=== PATIENT | male | born 1940 | race Caucasian/White ===

== ENCOUNTER 2023-02-19 09:53 | Outpatient (OUT) | payer MEDICARE, OTHER, SELFPAY ==
--- NOTE | 2023-02-19 09:57 | US_ITS ---
[address] [address] Patient Name: CHICO BAKER MRN: [id number] date: 1940 Sex: M Assigned Patient Location: US Current Patient Location: US Accession/Order Number: [id number] Exam Date: 02/19/2023 10:12 Report Date: 02/19/2023 12:06 At the request of: SHERMAN AGUILAR Procedure: US renal BI EXAMINATION: US renal BI HISTORY: Kidney Stone COMPARISON: No relevant comparison available. TECHNIQUE: Ultrasound examination was performed of the bladder. FINDINGS: Right Kidney: Normal in size, contour and cortical echotexture. The cortex measures 1.6 cm thick. Multiple echogenic foci measuring up to 8 mm. No hydronephrosis or solid cortical mass Height: 4.9 cm Length: 9.5 cm Width: 4.6 cm Left Kidney: Normal in size, contour and cortical echotexture. The cortex measures 1.5 cm thick. Multiple echogenic foci measuring up to 2.1 cm No hydronephrosis or solid cortical mass. Areas of anechoic echogenicity measuring up to 1 cm, cortical cysts Height: 5.2 cm Length: 10.2 cm Width: 4.7 cm Urinary bladder: Minimally distended measuring 37.5 mL Ureteral jets: Visualized US/US renal BI IMPRESSION: Bilateral nephrolithiasis measuring up to 2.1 cm on the left Electronically authenticated by: ROCIO RICARDO Date: 02/19/2023 12:06
--- NOTE | 2023-02-19 10:07 | XR_ITS ---
The [address] [address] Patient Name: CHICO BAKER MRN: [id number] date: 1940 Sex: M Assigned Patient Location: US Current Patient Location: US Accession/Order Number: [id number] Exam Date: 02/19/2023 10:02 Report Date: 02/19/2023 11:12 At the request of: SHERMAN AGUILAR Procedure: XR abdomen 1V EXAM: XR abdomen 1V HISTORY: Kidney Stone COMPARISON: None. TECHNIQUE: AP view of the abdomen. FINDINGS: Nonobstructive bowel gas pattern is noted. Multiple bilateral renal calculi, largest on the right measuring up to 5 mm and largest on the left measuring up to 8 mm. The osseous structures are intact. There is indwelling aortic bilateral iliac endograft. XR/XR abdomen 1V IMPRESSION: Nonobstructive bowel gas pattern. Bilateral nephrolithiasis. Electronically authenticated by: SUZE BALDERAS Date: 02/19/2023 11:12
== END 2023-02-19 09:54 | disposition home or self-care (01) ==
LOC: US 09:53
PROVIDERS: PCP Internal Medicine; Visit Provider Urology
DX: N20.0 Calculus of kidney (principal)
CPT/HCPCS: 74018; 76775

== ENCOUNTER 2023-03-17 14:26 | Outpatient (OUT) | payer MEDICARE, OTHER, SELFPAY ==
--- OUTSIDE RECORDS SUMMARY | 2023-03-17 14:31 | XMS_ITS | CCD ---
Author Name Unknown Address [address] [place] [address] Organization [facility] Care Team Providers Care Shop Service Technician Name Role Phone Orlando Dotson Unavailable Raul Quan Unavailable Tamar Perea Unavailable Shailesh Dunham Unavailable DO Shailesh Dunham Primary Care Provider MD Raul Quan Attending Provider [phone] KB Perea Attending Provider MD Raul Quan Admit Provider DO Shailesh Dunham Primary Care Provider KB Perea Attending Provider MD Raul Quan Admit Provider MD Raul Quan Attending Provider SHAILESH DUNHAM Primary Care Physician [phone] LUCaleb .IVELISSE Admitting Unavailable LUE ., IVELISSE Porras Attending Unavailable ENRICO, DR MEADE Primary Care Unavailable MO .IVELISSE Consulting Unavailable ENRICO, DR MEADE Admitting Unavailable ENRICO, DR MEADE Attending Unavailable ENRICO, DR MEADE Referring Unavailable ENRICO, DR MEADE Primary Care Unavailable ENRICO, DR MEADE Consulting Unavailable ENRICO, DR MEADE Admitting Unavailable ENRICO, DR MEADE Attending Unavailable ENRICO, DR MEADE Primary Care Unavailable ENRICO, DR MEADE Consulting Unavailable ENRICO, DR MEADE Admitting Unavailable ENRICO, DR MEADE Attending Unavailable ENRICO, DR MEADE Primary Care Unavailable ENRICO, DR MEADE Consulting Unavailable DAVION, DR ROCIO Dean Consulting Unavailable AVELINA, DR BILLS Admitting Unavailable AVELINA, DR BILLS Attending Unavailable ENRICO, DR MEADE Primary Care Unavailable AVELINA, DR BILLS Consulting Unavailable ENRICO, DR MEADE Primary Care Unavailable CARLOS, DR SUZE Phelps Admitting Unavailable CARLOS, DR SUZE Phelps Attending Unavailable CARLOS, DR SUZE Phelps Consulting Unavailable TAYO CASTILLO Consulting Unavailable BALL, DR MEADE Primary Care Unavailable GORAN, GILES Admitting Unavailable GORAN, GILES Attending Unavailable NY, CHARLES Consulting Unavailable GORAN, GILES Consulting Unavailable SCHRECECILIA, DEL Consulting Unavailable PELZ, ABY Consulting Unavailable STRAWSER, NICOLE Consulting Unavailable REQUEST, NONE LISTED Admitting Unavaila ble REQUEST, NONE LISTED Attending Unavaila ble ENRICO, DR MEADE Primary Care Unavailable REQUEST, NONE LISTED Consulting Unavaila ble Shailesh Dunham Unavailable DO Shailesh Dunham Primary Care Provider [phone] MD Raul Quan Attending Provider [phone] DO Shailesh Dunham Primary Care Provider [phone] MD Raul Quan Attending Provider MD Raul Quan Admit Provider [phone] DO Shailesh Dunham Primary Care Provider [phone] MD Raul Quan Attending Provider Shailesh Dunham [facility] Unavailable Tamar Perea Admitting Unavailable Tamar Perea Attending Unavailable Shailesh Dunham Primary Care Unavailable Raul Quan Admitting Unavailable Raul Quan Attending Unavailable Shailesh Dunham Primary Care Unavailable Raul Quan Attending Unavailable Raul Quan Admitting Unavailable Shailesh Dunham Primary Care Unavailable Raul Quan Attending Unavailable Raul Quan Admitting Unavailable Shailesh Dunham Primary Care Unavailable Raul Quan Admitting Unavailable Raul Quan Attending Unavailable Enrico Troy Primary Care Unavailable Raul Quan Attending Unavailable Raul Quan Admitting Unavailable Ivelisse Hassan Attending Unavailable Ivelisse Hassan Attending Unavailable Ivelisse Hassan Attending Unavailable Ivelisse Hassan Admitting Unavailable Ivelisse Hassan Attending Unavailable Ivelisse Hassan Attending Unavailable Ivelisse Hassan Attending Unavailable Ivelisse Hassan Attending Unavailable Ivelisse Hassan Attending Unavailable Allergies Allergy Classification Reported Allergen(s) Allergy Type Date of Onset Reaction(s) Facility (5 sources) Angiotensin Converting Enzyme (Shalini) Inhibitors Drug allergy Unknown [facility] Other (6 sources) Tetanus vaccine; Translations: [tetanus toxoid] Drug allergy Unknown [facility] (19 sources) Angiotensin Converting Enzyme (Shalini) Inhibitors; Translations: [Angiotensin-conve rting enzyme inhibitor agent (substance)] Allergy to substance 02-24-20 19 Hives, [facility] (8 sources) Contrast media Allergy to substance 10-07-19 22 [facility] (8 sources) Tetanus immune globulin Drug Allergy 02-24-20 19 Unknown Reaction [facility] (15 sources) Angiotensin-conver ting enzyme inhibitor agent Drug allergy Unknown [facility] Other (2 sources) Tetanus toxoid specific immunoglobulin E Drug allergy Unknown [facility] Other (10 sources) Contrast media; Translations: [Contrast Dye] Allergy to substance unknown [facility] (10 sources) Iodine; Translations: [iodine] Drug Allergy Unknown (qualifier value) [facility] (9 sources) tetanus toxoid vaccine, inactivated; Translations: [tetanus toxoid] Drug Allergy Unknown (qualifier value) [facility] (1 source) Iodine Drug Allergy [facility] (1 source) Iodine (And Iodine Containting Drugs) Drug allergy (disorder) [facility] (1 source) Tetanus AND Diphtheria Tox,Adult Drug allergy (disorder) [facility] (13 sources) Tetanus vaccine Drug allergy Unknown [facility] Other (3 sources) Iodinated Contrast Media Allergy to substance 07-02-19 23 [facility] Medications Current Medications Medication Drug Class(es) Dates Sig (Normalized) Sig (Original) aspirin 81 mg delayed release oral tablet (20 sources) Platelet Aggregation Inhibitor, Nonsteroidal Anti-inflammatory Drug Start: 07-01-2022 take 81 mg by mouth once daily at bedtime Aspirin Active 81 MG PO Daily at bedtime July 01, 2022 12:00am Start: 01-28-2021 take 1 mg by mouth e very other day aspirin 81 mg oral capsule mg cap(s), Oral, Every other day, Refills(s) 0 Start Date: 01/28/21 Status: Ordered Start: 02-23-2019 End: 07-01-2022 take 81 mg by mouth once daily Aspirin Discontinued 81 MG PO Daily February 23, 2019 1:00am July 01, 2022 9:43am take 1 tablet by freddy once daily Aspirin 81 81 MG 1 tablet Orally Once a day Active calcium citrate 1040 mg oral tablet (12 sources) Start: 07-01-2022 take 600 mg by mouth twice daily Calcium Citrate Active 600 MG PO Twice daily July 01, 2022 12:00am Start: 02-11-2022 take 2 tablets by mo [facility] three times daily calcium (as calcium citrate) 200 mg oral tablet 180 EA, TAKE 2 TABLETS BY MOUTH 3 TIMES A DAY, Refills(s) 0 Start Date: 02/11/22 Status: Ordered carvedilol 3.125 mg oral tablet (20 sources) alpha-Adrenergic Helder, beta-Adrenergic Helder Start: 04-14-2022 take 3.125 mg by mouth twice daily at mealtime Carvedilol Active 3.125 MG PO Twice daily July 01, 2022 12:00am must administer with a meal/food Start: 02-23-2019 End: 07-01-2022 take 12.5 mg by mouth twice daily carvedilol 12.5 mg, Oral, BID, Refills(s) 0 Start Date: 03/28/19 Status: Ordered Carvedilol Activ e cholecalciferol 0.025 mg oral capsule (11 sources) Vitamin D Start: 07-01-2022 take 1 capsule by mouth twice daily Cholecalciferol (Vitamin D3) (Vitamin D3) 25 mcg (1,000 unit) Capsule Active 25 MCG PO Twice daily July 01, 2022 12:00am Start: 10-06-2021 End: 07-01-2022 take 1 capsule by mouth once daily Cholecalciferol (Vitamin D3) (Vitamin D3) 50 mcg (2,000 unit) Capsule Discontinued 50 MCG PO Daily October 06, 2021 12:00am July 01, 2022 9:45am clopidogrel 75 mg oral tablet (10 sources) P2Y12 Platelet Inhibitor Start: 09-16-2021 take 75 mg by mouth once daily in the morning Clopidogrel Active 75 MG PO Every morning July 01, 2022 12:00am Enoxaparin (2 sources) Low Molecular Weight Heparin Enoxaparin Sodium until 11/27/21 Active 24 hr isosorbide mononitrate 30 mg extended release oral tablet (20 sources) Nitrate Vasodilator Start: 02-23-2019 take 30 mg by mouth once daily Isosorbide Mononitrate Active 30 MG PO Daily February 23, 2019 1:00am Isosorbide [place] itrate Active isosorbide dinitrate 30 mg oral tablet (9 sources) Nitrate Vasodilator Start: 03-28-2019 take 30 mg by mouth once daily isosorbide dinitrate 30 mg, Oral, Daily, Refills(s) 0 Start Date: 03/28/19 Status: Ordered 24 hr mirabegron 25 mg extended release oral tablet (2 sources) beta3-Adrenergic Agonist Start: 10-07-2022 take 1 tablet by mouth once daily Myrbetriq 25 mg oral tablet, extended release 25 mg = 1 tab(s), Oral, Daily, # 30 tab(s), Refills(s) 6, Pharmacy: [facility]/pharmacy #[id number], 169, cm, 10/07/22 8:54:00 EDT, Height/Length Dosing, 61.5, kg, 10/07/22 8:54:00 EDT, Weight Dosing Start Date: 10/07/22 Status: Ordered pravastatin sodium 40 mg oral tablet (20 sources) HMG-CoA Reductase Inhibitor Start: 03-28-2019 take 40 mg by mouth once daily pravastatin 40 mg, Oral, Daily, Refills(s) 0 Start Date: 03/28/19 Status: Ordered Start: 02-23-2019 End: 02-05-2022 take 10 mg by mouth at bedtime Pravastatin Discontinue d 10 MG PO Bedtime February 23, 2019 1:00am February 05, 2022 7:50am Pravastatin Acti ve sulfamethoxazole 800 mg / trimethoprim 160 mg oral tablet (2 sources) Dihydrofolate Reductase Inhibitor Antibacterial, Sulfonamide Antimicrobial Start: 02-11-2022 End: 03-13-2022 Bactrim D.S. 800 mg-160 mg Tab 1 tab(s), Oral, BID for 30 day(s), 60 tab(s), Refill(s) 0, [facility]/pharmacy #[id number], 169, cm, 02/11/22 8:44:00 EST, Height/Length Dosing, 71, kg, 02/11/22 8:44:00 EST, Weight Dosing Start Date: 02/11/22 Stop Date: 03/13/22 Status: Ordered Vitamin D3 (15 sources) Vitamin D3 Not-Taking Vitamin D3 Activ e Completed/Discontinued Medications Medication Drug Class(es) Dates Sig (Normalized) Sig (Original) ##### (9 sources) Start: 02-11-2022 take 1 capsule by mouth at mealtime ##### 60 EA, TAKE 1 CAPSULE BY MOUTH IN THE MORNING AND 1 IN THE EVENING WITH MEALS Start Date: 02/11/22 Status: Ordered {1 (ascorbic acid 7540 MG / polyethylene glycol 3350 39871 MG / potassium chloride 1200 MG / sodium ascorbate 60845 MG / sodium chloride 3200 MG Powder for Oral Solution) / 1 (polyethylene glycol 3350 [id number] MG / potassium chloride 1000 MG / sodium chloride 2000 MG / sodium sulfate 9000 MG Powder for Oral Solution) } Pack [Plenvu] (6 sources) Osmotic Laxative, Vitamin C Start: 02-16-2019 Plenvu 140 GM DOSE 1 AT 4:00 PM, DOSE 2 POUCH A &B AT 11:00 PM Orally TWICE A DAY for 1 days PLEASE CHECK ALLERGIES Feb, Not-Taking Calcium (13 sources) Phosphate Binder, Calcium Calcium Not-Taking Calcium Active doxazosin 4 mg oral tablet (8 sources) alpha-Adrenergic Helder Start: 02-23-2019 End: 10-06-2021 take 4 mg by mouth once daily Doxazosin Discontinued 4 MG PO Daily February 23, 2019 1:00am October 06, 2021 10:38am losartan potassium 25 mg oral tablet (20 sources) Angiotensin 2 Receptor Helder Start: 02-04-2022 take 1 tablet by mouth once daily losartan 25 mg Tab 30 EA, TAKE 1 TABLET BY MOUTH EVERY DAY, Refills(s) 0 Start Date: 02/11/22 Status: Ordered Losartan Potassi um Active Problems Active Problems Problem Classification Problem Date Documented Da te Episodic/Chronic Aortic; peripheral; and visceral artery aneurysms (20 sources) Abdominal aortic aneurysm without rupture; Translations: [Abdominal aortic aneurysm, without rupture] Onset: 07-28-2021 Resolved: 11-24-2021 Chronic Calculus of urinary tract (20 sources) Kidney stone; Translations: [History of calculus of kidney] Onset: 04-15-2022 03-28-2019 Episodic Coronary atherosclerosis and other heart disease (20 sources) Coronary arteriosclerosis; Translations: [Atherosclerotic heart disease of [place] coronary artery without angina pectoris] Onset: 11-14-2021 03-28-2019 Chronic Deficiency and other anemia (10 sources) Anemia; Translations: [Anemia, unspecified] Episodic Diabetes mellitus without complication (11 sources) Impaired fasting glycemia; Translations: [Impaired fasting glucose] Episodic Disorders of lipid metabolism (20 sources) Hyperlipidemia; Translations: [Pure hypercholesterolemi a, unspecified] Onset: 10-28-2021 03-28-2019 Chronic E Codes: Adverse effects of medical drugs (11 sources) Adverse effect of anticoagulants, initial encounter; Translations: [Medication side effects present] Onset: 11-14-2021 Episodic Esophageal disorders (2 sources) Gastro-esophageal reflux disease without esophagitis; Translations: [GERD WITHOUT ESOPHAGITIS] Onset: 10-28-2021 Chronic Essential hypertension (20 sources) Hypertensive disorder; Translations: [Essential (primary) hypertension] Onset: 12-10-2021 03-28-2019 Chronic Genitourinary symptoms and ill-defined conditions (20 sources) Incontinence; Translations: [Post-micturition incontinence ] 11-23-2019 Chronic Genitourinary symptoms and ill-defined conditions (20 sources) Microscopic hematuria; Translations: [Asymptomatic microscopic hematuria] Onset: 02-11-2022 Episodic Heart valve disorders (20 sources) Aortic stenosis, non-rheumatic ; Translations: [Nonrheumatic aortic (valve) stenosis] Chronic Hyperplasia of prostate (20 sources) Benign prostatic hypertrophy with outflow obstruction; Translations: [Benign prostatic hyperplasia with lower urinary tract symptoms] Onset: 02-10-2022 Chronic Immunizations and screening for infectious disease (1 source) Encounter for immunization; Translations: [Encounter For Immunization] Onset: 06-13-2020 Episodic Inflammatory conditions of male genital organs (10 sources) Prostatitis; Translations: [Inflammatory disease of prostate, unspecified] Onset: 02-11-2022 Episodic Nutritional deficiencies (10 sources) Vitamin D deficiency; Translations: [Vitamin D deficiency, unspecified] Chronic Occlusion or stenosis of precerebral arteries (20 sources) Carotid artery stenosis; Translations: [Occlusion and stenosis of unspecified carotid artery] Onset: 07-28-2021 Resolved: 09-15-2021 Chronic Other bone disease and musculoskeletal deformities (9 sources) Osteitis deformans 03-28-2019 Chronic Other bone disease and musculoskeletal deformities (10 sources) 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; 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] Chronic Other diseases of bladder and urethra (4 sources) Male urethral stricture; Translations: [Unspecified urethral stricture, male, unspecified site] Onset: 10-06-2022 Episodic Other gastrointestinal disorders (10 sources) Diarrhea; Translations: [Diarrhea, unspecified] Episodic Other lower respiratory disease (10 sources) Dyspnea on exertion; Translations: [Other forms of dyspnea] Episodic Other male genital disorders (13 sources) Male erectile dysfunction, unspecified; Translations: [Erectile dysfunction] Onset: 02-11-2022 Chronic Other nutritional; endocrine; and metabolic disorders (10 sources) Abnormal weight loss; Translations: [Abnormal weight loss] Episodic Other screening for suspected conditions (not mental disorders or infectious disease) (8 sources) Computed tomography result abnormal; Translations: [Abnormal findings on diagnostic imaging of other specified body structures] 02-23-2019 Chronic Other skin disorders (4 sources) Eruption; Translations: [Rash and other nonspecific skin eruption] Onset: 02-18-2022 Episodic Other skin disorders (7 sources) Rash of genitalia 02-18-2022 Episodic Other skin disorders (10 sources) Vesicular eczema of hands and/or feet; Translations: [Dyshidrosis [pompholyx]] Episodic Peripheral and visceral atherosclerosis (20 sources) Peripheral vascular disease, unspecified; Translations: [Intermittent claudication of bilateral lower limbs co-occurrent and due to atherosclerosis] Onset: 07-28-2021 Resolved: 09-15-2021 Chronic Screening and history of mental health and substance abuse codes (10 sources) Ex-smoker; Translations: [Personal history of nicotine dependence] Onset: 11-14-2021 08-15-2019 Episodic Unclassified (9 sources) Asymptomatic microscopic hematuria 02-20-2020 Unclassified (4 sources) CONTACT W/AND (SUSP) EXPOS COVID-19; Translations: [CONTACT W/AND (SUSP) EXPOS COVID-19] Onset: 12-04-2021 Unclassified (1 source) ABDOMINAL AA W/O RUPTURE UNSPCIFIED; Translations: [ABDOMINAL AA W/O RUPTURE UNSPCIFIED] Onset: 02-07-2022 Unclassified (3 sources) SUBACUTE COUGH; Translations: [SUBACUTE COUGH] Onset: 12-10-2021 Unclassified (1 source) Occlusion and stenosis of left carotid artery; Translations: [Occlusion and stenosis of left carotid artery] Onset: 07-08-2022 Past or Other Problems Problem Classification Problem Date Documented Date Episodic/Chronic Abdominal pain (3 sources) Epigastric pain; Translations: [EPIGASTRIC PAIN] Onset: 2 Episodic Deficiency and other anemia (1 source) Other specified anemias; Translations: [OTHER SPECIFIED ANEMIAS] Onset: 2 Episodic Deficiency and other anemia (4 sources) Anemia, unspecified; Translations: [ANEMIA UNSPECIFIED] Onset: 2 Episodic E Codes: Fall (2 sources) Unspecified fall, subsequent encounter; Translations: [Other fall on same level, initial encounter] Onset: 2 Episodic Fracture of neck of femur (hip) (2 sources) Displaced intertrochanteric fracture of right femur, subsequent encounter for closed fracture with routine healing; Translations: [Displaced intertrochanteric fracture of right femur, initial encounter for closed fracture] Onset: 2 Episodic Fracture of upper limb (1 source) Anterior displaced fracture of sternal end of right clavicle, initial encounter for closed fracture; Translations: [ANT DSPL FX STRNL RT CL INIT TRICIA FX] Onset: 2 Episodic Other aftercare (1 source) Other [facility] (current) drug therapy; Translations: [OTH ACCOUNT INSTALLATION SPECIALIST CURRENT DRUG THERAPY] Onset: 2 Episodic Other aftercare (1 source) extermination inspector (current) use of anticoagulants; Translations: [ACCOUNT INSTALLATION SPECIALIST CURRNT USE ANTICOAGULANTS] Onset: 2 Episodic Other aftercare (1 source) extermination inspector (current) use of aspirin; Translations: [CORRECTION CURRENT USE OF ASPIRIN] Onset: 2 Episodic Other bone disease and musculoskeletal deformities (1 source) Other specified disorders of bone density and structure, unspecified site; Translations: [OTH D/O BONE DEN STRUCT UNS SITE] Onset: 2 Episodic Other fractures (1 source) Fracture of unspecified part of right clavicle, subsequent encounter for fracture with routine healing; Translations: [FX UNS PRT RT CLAV SUBSQT FX RTN] Onset: 2 Episodic Other non-traumatic joint disorders (3 sources) Pain in right shoulder; Translations: [PAIN IN RIGHT SHOULDER] Onset: 2 Episodic Unclassified (4 sources) Abdominal aortic aneurysm (AAA) 3.0 cm to 5.5 cm in diameter in male I71.40 Unclassified (1 source) SUBACUTE COUGH; Translations: [SUBACUTE COUGH] Onset: 2 Unclassified (1 source) CONTACT W/AND (SUSP) EXPOS COVID-19; Translations: [CONTACT W/AND (SUSP) EXPOS COVID-19] Onset: 2 Results Test Name Value Interpretation Reference Range Facility Reminderson 03-03-2023 Reminders - From: Faviola Clemens To: EU - Recalls Lue; Sent: 01/13/2023 10:01:25 EST Show up: 02/12/2023 10:01:00 EST Subject: LINDSEY and KUB Due Date/Time: 02/12/2023 10:01:00 EST Pt to have LINDSEY and KUB done in March at [facility]. Orders placed. Possible ESWL pending size of stones. No follow up at this time. Pt to be called with results. Called pt and reminded him to complete LINDSEY/KUB @ [facility] in the next month. Orders were faxed today. From: Sarika Horta (EU - Recalls Lue) To: IVA ANTOINE PA-C; Sent: 02/22/2023 09:37:39 EST Show up: 02/22/2023 09:31:00 EST Subject: RE: LINDSEY and KUB 02/19/23 KUB: 02/19/23 LINDSEY: Per last OV, possible ESWL. Next steps? From: IVA ANTOINE PA-C To: Ivelisse Hassan MD; Sent: 02/22/2023 16:06:07 EST ! Show up: 02/22/2023 16:05:00 EST From: Belkis Johnson MA ([facility] Recalls Mo) To: Ivelisse Hassan MD; Sent: 02/25/2023 13:44:44 EST Show up: 02/25/2023 13:44:00 EST Subject: RE: LINDSEY and KUB Pt called requesting results From: Ivelisse Hassan MD To: Sandi Ibarra; Sent: 02/25/2023 17:11:14 EST Show up: 02/25/2023 17:11:00 EST Subject: RE: LINDSEY and KUB Please notify patient 1.5 x 1 cm left lower pole stone burden, with 2 smaller stones in seen calyx. Right lower pole 12 x 8 mm stone burden. As discussed in clinic, patient elected for ESWL for stone treatment. Would proceed with left ESWL with stent placement. This may be more than 1 procedure given hard stone and large stone burden. Thanks, KML Patient is scheduled for 03/24/22 @ [facility] Comment on above: Result Comment: Miss ing Attachment - attachment exceeds size limitation (02/19/2023) RAD - Ultrasound Report Can be viewed in source system Missing Attachment - attachment exceeds size limitation (02/19/2023) RAD - MISC Can be viewed in source system RAD - MISCon 02-22-2023 RAD - MISC [id number] [facility] RAD - Ultrasound Reporton RAD - Ultrasound Report [id number] [facility] Screenson 01-14-2023 Screens [id number]#[id number] Normal [facility] Screens [id number]#[id number] Normal [facility] Patient Educationon 01-14-20 Patient Education Urology Benign Prostatic Hyperplasia Benign prostatic hyperplasia (BPH) is an enlarged prostate gland that is caused by the normal aging process. The prostate may get bigger as a man gets older. The condition is not caused by cancer. The prostate is a walnut-sized gland that is involved in the production of semen. It is located in front of the rectum and below the bladder. The bladder stores urine. The urethra carries stored urine out of the body. An enlarged prostate can press on the urethra. This can make it harder to pass urine. The buildup of urine in the bladder can cause infection. Back pressure and infection may progress to bladder damage and kidney (renal) failure. What are the causes? This condition is part of the normal aging process. However, not all men develop problems from this condition. If the prostate enlarges away from the urethra, urine flow will not be blocked. If it enlarges toward the urethra and compresses it, there will be problems passing urine. What increases the risk? This condition is more likely to develop in men older than 50 years. What are the signs or symptoms? Symptoms of this condition include: ? Getting up often during the night to urinate. ? Needing to urinate frequently during the day. ? Difficulty starting urine flow. ? Decrease in size and strength of your urine stream. ? Leaking (dribbling) after urinating. ? Inability to pass urine. This needs immediate treatment. ? Inability to completely empty your bladder. ? Pain when you pass urine. This is more common if there is also an infection. ? Urinary tract infection (UTI). How is this diagnosed? This condition is diagnosed based on your medical history, a physical exam, and your symptoms. Tests will also be done, such as: ? A post-void bladder scan. This measures any amount of urine that may remain in your bladder after you finish urinating. ? A digital rectal exam. In a rectal exam, your health care provider checks your prostate by putting a lubricated, gloved finger into your rectum to feel the back of your prostate gland. This exam detects the size of your gland and any abnormal lumps or growths. ? An exam of your urine (urinalysis). ? A prostate specific antigen (PSA) screening. This is a blood test used to screen for prostate cancer. ? An ultrasound. This test uses sound waves to electronically produce a picture of your prostate gland. Your health care provider may refer you to a specialist in kidney and prostate diseases (urologist). How is this treated? Once symptoms begin, your health care provider will monitor your condition (active surveillance or watchful waiting). Treatment for this condition will depend on the severity of your condition. Treatment may include: ? Observation and yearly exams. This may be the only treatment needed if your condition and symptoms are mild. ? Medicines to relieve your symptoms, including: ? Medicines to shrink the prostate. ? Medicines to relax the muscle of the prostate. ? Surgery in severe cases. Surgery may include: ? Prostatectomy. In this procedure, the prostate tissue is removed completely through an open incision or with a laparoscope or robotics. ? Transurethral resection of the prostate (TURP). In this procedure, a tool is inserted through the opening at the tip of the penis (urethra). It is used to cut away tissue of the inner core of the prostate. The pieces are removed through the same opening of the penis. This removes the blockage. ? Transurethral incision (TUIP). In this procedure, small cuts are made in the prostate. This lessens the prostate's pressure on the urethra. ? Transurethral microwave thermotherapy (TUMT). This procedure uses microwaves to create heat. The heat destroys and removes a small amount of prostate tissue. ? Transurethral needle ablation (TUNA). This procedure uses radio frequencies to destroy and remove a small amount of prostate tissue. ? Interstitial laser coagulation (ILC). This procedure uses a laser to destroy and remove a small amount of prostate tissue. ? Transurethral electrovaporization (TUVP). This procedure uses electrodes to destroy and remove a small amount of prostate tissue. ? Prostatic urethral lift. This procedure inserts an implant to push the lobes of the prostate away from the urethra. Follow these instructions at home: ? Take niso-zzo-rsgsxgg and prescription medicines only as told by your health care provider. ? Monitor your symptoms for any changes. Contact your health care provider with any changes. ? Avoid drinking large amounts of liquid before going to bed or out in public. ? Avoid or reduce how much caffeine or alcohol you drink. ? Give yourself time when you urinate. ? Keep all follow-up visits. This is important. Contact a health care provider if: ? You have unexplained back pain. ? Your symptoms do not get better with treatment. ? You develop side effects from the medicine (more content not included)... [facility] Urology Office/Clinic Noteon 01-13-2023 Urology Office/Clinic Note Chief Complaint 3 month F/U HPI Staff 3m to BPH, Hx of Kidney Stones, Microscopic Hematuria & Urethral Stricture Pt. states he has not Started on Myrbetriq 25mg QD at time of last encounter Dysuria: no Incomplete bladder emptying: no Hematuria: UA shows moderate today Frequency: Pt. states occasionally 3 hours or longer Urgency: yes Nocturia: 3x's Stream: good stream Post void dripping: no Wearing pads/ Depends: _ Urge incontinence: occasionally Stress incontinence: no Incontinence without Sensory Awareness: no Abdominal pain: no Flank pain: Pt. states occasionally will have Lt. flank pain. History of Present Illness Tests reviewed: Reviewed UA I have reviewed the previous health record information and history for this patient from Dr. Hassan. I have reviewed and verified the staff HPI to be accurate for this encounter. There have been no associated fever, chills, flank pain, or blood in the urine. Denies any urinary infections since last encounter. Review of Systems ROS - Provider Constitutional: denies weight loss, denies hot flashes. Eyes: denies eye problems. Gastrointestinal: denies nausea, denies vomiting. Cardiovascular: denies chest pain or angina. Integumentary: no dryness Musculoskeletal: denies musculoskeletal symptoms. ENMT: denies otolaryngeal symptoms. Respiratory: no shortness of breath. Heme/Lymph: denies easy bleeding tendency, denies easy bruising tendency. Psychiatric: no confusion, no anxiety. Genitourinary: See HPI. Physical Exam Vitals & Measurements HR: 68(Peripheral) RR: 16 BP: 156/74 HT: 67 in HT: 169 cm WT: 61.5 kg WT: 135.3 lb BMI: 21.53 General Appearance: alert, no distress, well nourished, well developed male. Genitourinary: Flank Pain: none. Bladder: nonpalpable. Assessment/Plan 82 yo male following up today to BPH w/ LUTS. ASA 81mg. Pt here with today. EDGAR 1 (1) Portions of this record may have been created with voice recognition artificial intelligence software, specifically [employer], [employer] and or [employer]. Substitutions may have occurred due to the inherent limitations of voice recognition and artificial intelligence software. 1. BPH with obstruction/lower urinary tract symptoms (N40.1: Benign prostatic hyperplasia with lower urinary tract symptoms) hx TURP by DLS 2019, prostate small on 05/11/22 CT scan 11-20g, calcifications PSA: 02/10/19 - 0.13 09/09/20 - <0.05 02/10/22 - <0.13 After dilation: IPSS 6 (10) Pt states he does not know if his symptoms have improved since his cysto/UD. However IPSS appears improved. PVR 0mL (26) UA today moderate blood and small leuks. Asx. Pt did try Doxazosin in the past with no relief. Reports improvement in constipation. Has been drinking more water. States he has a BM every other day. CC: urgency, getting up 3x during the night. Usually voids every 2-3 hours. OAB sx. Pt is still passing gas when he urinates due to straining. Pt was started on Myrbetriq 25mg qd at last visit. States it was cost prohibitive - never called office. Discussed alternative OAB oral medications along with undesired side effects including dry eyes, dry mouth and constipation. Discussed botox injections. -Bowel regimen -Timed voids -Phone number provided to assist with covering Myrbetriq. Consider trial of anticholinergic temporarily and if sx relief, can proceed with Botox 2. Kidney stones (N20.0: Calculus of kidney) Hx of ESWL years ago, denies complications. CTA AP 05/11/22 (Dr. Quan for vasculopathy) showed bilateral nephrolithiasis largest measuring 7 mm within the right kidney. On personal review: BL lower pole stone burden near 1.5 cm. HU 900-1000, SSD 7-8 cm. Denies current pain. At this time pt is not interested in procedures to treat his stones. Discussed the risks of waiting to treat his kidney stones including multiple, more invasive procedures and renal damage. Treatment options discussed including ESWL and laser lithotripsy. Pt prefers ESWL if surgical intervention is indicated. has surgery in February so pt will have imaging done afterwards. -LINDSEY and KUB in March -Will call with results, potential ESWL +/- stent pending size - address larger stone burden side first The procedure risks, benefits, details and treatment alternatives have been discussed with the patient. These include blood urine, infection, bleeding around the kidney, kidney bruising, inability to break up the stone, need for blood transfusion, stent pain, injury to the ureter, bladder irritation from the stent, flank pain, and need for additional procedures, among others. Full informed consent has been obtained. Will order General anesthesia. -Increase water intake, dietary modifications 3. Asymptomatic microscopic hematuria (R31.21: Asymptomatic microscopic hematuria) Micro UA 04/15/22 21-30 RBCs, likely due to stones S/p Cysto/UD 07/28/22 - neg for lesions CT AP 05/2022 neg, stones no (more content not included)... [facility] Comment on above: Result Comment: Elec tronically Signed By: Ivelisse Hassan MD\.br\Date and Time Signed: 01/13/23 16:25 EST\.br\Electronically Co-Signed By: Faviola Clemens\.br\Date and Time Co-Signed: 01/13/23 09:59 EST US carotid doppler BIon 09-0 US carotid doppler BI [facility] [place] [address] [place] [address] Ultrasound Report Signed Patient: Chico Baker MR#: [id number] : 1940 Acct:[id number] Age/Sex: 82 / M ADM Date: 11/10/22 Loc: [facility] Room: Type: [facility] Attending Dr: Raul Quan MD Ordering Provider: Raul Quan MD Date of Service: 11/10/22 US/US carotid doppler BI: I65.23 Copies to: Raul Quan MD CAROTID DUPLEX INDICATION: known cvod with left tcar PROCEDURE: Color-flow duplex scanning is used to interrogate the extracranial carotid arterial system, as well as both vertebral arteries. Both carotid bifurcations show mild to moderate heterogeneous plaque formation. The proximal right internal carotid artery shows a highest peak systolic velocity of 82.3 cm/s with an end-diastolic velocity of 19.6 cm/s . The mid internal carotid artery measures 98.8 cm/s peak systolic and 23.5 cm/s end diastolic. The distal segment measures 62.7 cm/s peak systolic with an end diastolic velocity of 10.9 cm/s . The velocities of the right common carotid artery are 73.9 cm/s peak systolic and 14.3 cm/s end-diastolic proximally and 63.4 cm/s peak systolic and 11.8 cm/s end diastolic distally. The peak systolic velocity ratio of the internal to the common carotid artery is 1.56. The right external carotid artery measures 129 cm/s peak systolic. The right vertebral artery is patent at 69 cm/s with antegrade flow. The proximal left internal carotid artery shows a highest peak systolic velocity of 46.6 cm/s with an end-diastolic velocity of 11.6 cm/s . The mid internal carotid artery measures 42 cm/s peak systolic and 12.6 cm/s end diastolic. The distal segment measures 89 cm/s peak systolic with an end diastolic velocity of 22.1 cm/s . The velocities of the left common carotid artery are 41.3 cm/s peak systolic and 10.2 cm/s end-diastolic proximally and 33.3 cm/s peak systolic and 10.9 cm/s end diastolic distally. The peak systolic velocity ratio of the internal to the common carotid artery is 2.67 . The left external carotid artery measures 42.4 cm/s peak systolic. The left vertebral artery is patent at 59.2 cm/s with antegrade flow. US/US carotid doppler BI IMPRESSION: MODERATE PLAQUE FORMATION IS NOTED BILATERAL EXTRACRANIAL CAROTID ARTERIES. less than 50 % stenosis is seen in Right ICA. Good result after left TCAR with no hemodynamically significant residual stenosis Impression dictated by: Raul Quan M.D.11/10/2022 10:30 AM Dictation Location: [place] [address] Tech: Harika Pradhan Transcribed By: ALEX 11/10/22 1030 Dictated By: Raul Quan MD 11/10/22 1029 Signed By: 11/10/22 1030 [facility] [place] 10-08-2022 Screens [id number]:127 [facility] Screens [id number]:127 [facility] Ambulatory Visit Summaryon 0 10-07-2022 Ambulatory Visit Summary CHICO BAKER :1940 Visit Date:10/07/2022 Ambulatory Visit Instructions Your Diagnosis BPH with obstruction/lower urinary tract symptoms History of kidney stones Asymptomatic microscopic hematuria 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 Tests Performed Urnls Dip Stick Auto w/o Microscopy POC [id number] Your Care Team Attending Physician - Ivelisse Hassan MD Primary Care Physician - SHAILESH DUNHAM DO This Is Your Medications List mirabegron (Myrbetriq 25 mg oral tablet, extended release) Contact prescribing physician if questions or concerns Misc Prescription (#####) aspirin (aspirin 81 mg oral capsule) calcium citrate (calcium (as calcium citrate) 200 mg oral tablet) carvedilol isosorbide dinitrate losartan (losartan 25 mg Tab) pravastatin Procedures Performed Cystourethroscopy with dilation of urethral stricture (07/28/2022), AAA - Repair of abdominal aortic aneurysm using bifurcation graft (02/05/2022), Transurethral resection of prostate (10/18/2019), Cystoscope (04/06/2019), Colonoscopy (10/06/2016), Arthroscopy of knee, Cardiac catheterization, left heart, Esophagogastroduodenoscopy . Discharge Vitals Heart Rate (Peripheral) 75 Blood Pressure 139/74 Height 169 cm Height 67 in Weight 61.5 kg Weight 135.3 lb BMI 21.53 What to do next Scheduled Follow-Up Appointments Wednesday 9:00 AM EST With: Ivelisse Hassan MD Where: [facility] Normal [facility] Patient Educationon 10-08-19 Patient Education Urology Benign Prostatic Hyperplasia Benign prostatic hyperplasia (BPH) is an enlarged prostate gland that is caused by the normal aging process. The prostate may get bigger as a man gets older. The condition is not caused by cancer. The prostate is a walnut-sized gland that is involved in the production of semen. It is located in front of the rectum and below the bladder. The bladder stores urine. The urethra carries stored urine out of the body. An enlarged prostate can press on the urethra. This can make it harder to pass urine. The buildup of urine in the bladder can cause infection. Back pressure and infection may progress to bladder damage and kidney (renal) failure. What are the causes? This condition is part of the normal aging process. However, not all men develop problems from this condition. If the prostate enlarges away from the urethra, urine flow will not be blocked. If it enlarges toward the urethra and compresses it, there will be problems passing urine. What increases the risk? This condition is more likely to develop in men older than 50 years. What are the signs or symptoms? Symptoms of this condition include: ? Getting up often during the night to urinate. ? Needing to urinate frequently during the day. ? Difficulty starting urine flow. ? Decrease in size and strength of your urine stream. ? Leaking (dribbling) after urinating. ? Inability to pass urine. This needs immediate treatment. ? Inability to completely empty your bladder. ? Pain when you pass urine. This is more common if there is also an infection. ? Urinary tract infection (UTI). How is this diagnosed? This condition is diagnosed based on your medical history, a physical exam, and your symptoms. Tests will also be done, such as: ? A post-void bladder scan. This measures any amount of urine that may remain in your bladder after you finish urinating. ? A digital rectal exam. In a rectal exam, your health care provider checks your prostate by putting a lubricated, gloved finger into your rectum to feel the back of your prostate gland. This exam detects the size of your gland and any abnormal lumps or growths. ? An exam of your urine (urinalysis). ? A prostate specific antigen (PSA) screening. This is a blood test used to screen for prostate cancer. ? An ultrasound. This test uses sound waves to electronically produce a picture of your prostate gland. Your health care provider may refer you to a specialist in kidney and prostate diseases (urologist). How is this treated? Once symptoms begin, your health care provider will monitor your condition (active surveillance or watchful waiting). Treatment for this condition will depend on the severity of your condition. Treatment may include: ? Observation and yearly exams. This may be the only treatment needed if your condition and symptoms are mild. ? Medicines to relieve your symptoms, including: ? Medicines to shrink the prostate. ? Medicines to relax the muscle of the prostate. ? Surgery in severe cases. Surgery may include: ? Prostatectomy. In this procedure, the prostate tissue is removed completely through an open incision or with a laparoscope or robotics. ? Transurethral resection of the prostate (TURP). In this procedure, a tool is inserted through the opening at the tip of the penis (urethra). It is used to cut away tissue of the inner core of the prostate. The pieces are removed through the same opening of the penis. This removes the blockage. ? Transurethral incision (TUIP). In this procedure, small cuts are made in the prostate. This lessens the prostate's pressure on the urethra. ? Transurethral microwave thermotherapy (TUMT). This procedure uses microwaves to create heat. The heat destroys and removes a small amount of prostate tissue. ? Transurethral needle ablation (TUNA). This procedure uses radio frequencies to destroy and remove a small amount of prostate tissue. ? Interstitial laser coagulation (ILC). This procedure uses a laser to destroy and remove a small amount of prostate tissue. ? Transurethral electrovaporization (TUVP). This procedure uses electrodes to destroy and remove a small amount of prostate tissue. ? Prostatic urethral lift. This procedure inserts an implant to push the lobes of the prostate away from the urethra. Follow these instructions at home: ? Take jntz-kvt-dklhcdj and prescription medicines only as told by your health care provider. ? Monitor your symptoms for any changes. Contact your health care provider with any changes. ? Avoid drinking large amounts of liquid before going to bed or out in public. ? Avoid or reduce how much caffeine or alcohol you drink. ? Give yourself time when you urinate. ? Keep all follow-up visits. This is important. Contact a health care provider if: ? You have unexplained back pain. ? Your symptoms do not get better with treatment. ? You develop side effects from the medicine (more content not included)... [facility] Urology Office/Clinic Noteon 10-07-2022 Urology Office/Clinic Note Chief Complaint 2 month follow up HPI Staff Pt is here today for a 2 month follow up to a cysto/UD. Previous DX:Asymptomatic Microscopic Hematuria, Urethral Stricture in Male and BPH with Obstruction/Lower Urinary Tract Symptoms. *No Urology Meds PSA 02/10/22 - <0.13. Dysuria: denies pain or burning Incomplete bladder emptying: he doesn't know Hematuria: denies visible blood, UA shows LARGE Frequency: varies from a couple of hours, to between every 4-5 hours Urgency: sometimes Nocturia: denies Stream: denies hesitancy, sometimes has weak stream Leaking: sometimes Post void dripping: sometimes Wearing pads/ Depends: denies Urge incontinence: yes Stress incontinence: denies Incontinence without Sensory Awareness: sometimes Abdominal pain: denies Flank pain: denies Sexual complaints: denies History of Present Illness Tests reviewed: reviewed UA. I have reviewed the previous health record information and history for this patient from . I have reviewed and verified the staff HPI to be accurate for this encounter. There have been no associated fever, chills, flank pain, or blood in the urine. Denies any urinary infections since last encounter. Review of Systems PHQ Score Initial Depression Screen Score: 0 ROS - Provider Constitutional: denies weight loss, denies hot flashes. Eyes: denies eye problems. Gastrointestinal: denies nausea, denies vomiting. Cardiovascular: denies chest pain or angina. Integumentary: no dryness Musculoskeletal: denies musculoskeletal symptoms. ENMT: denies otolaryngeal symptoms. Respiratory: no shortness of breath. Heme/Lymph: denies easy bleeding tendency, denies easy bruising tendency. Psychiatric: no confusion, no anxiety. Genitourinary: See HPI. Physical Exam Vitals & Measurements HR: 75(Peripheral) BP: 139/74 HT: 67 in HT: 169 cm WT: 61.5 kg WT: 135.3 lb BMI: 21.53 General Appearance: alert, no distress, well nourished, well developed male. Assessment/Plan 1. BPH with obstruction/lower urinary tract symptoms (N40.1: Benign prostatic hyperplasia with lower urinary tract symptoms) hx TURP by DLS 2019, prostate small on 05/11/22 CT scan 11-20g, calcifications PSA: 02/10/19 - 0.13 09/09/20 - <0.05 02/10/22 - <0.13 Prostatitis sx have been ongoing since February. KML tx'd w/Bactrim therapy at that time. Pt stopped after several days due to severe diarrhea and the above rash. No bothersome daytime sx. Likely due to severe constipation and potentially calcifications, OAB sx After dilation: IPSS 10 (15), QoL 4, EDGAR 1 PVR 0mL (26) Pt states he does not know if his symptoms have improved since his cysto/UD. However IPSS appears improved by 5 points. PT states he has frequency every couple hours and sometimes 4-5 hours. Advised pt that he should try to void more often. Significant stool burden and distended rectum pushing on prostate and bladder. Pt has not been taking a stool softener to help alleviate his stool burden. Drinking a new tea, helping some but still not having daily BMs. Again thoroughly counseled on bowel regimen, fluid intake, again provided list of meds to take OTC. Pt not taking any BPH or bladder meds at this time. Did try Doxazosin in the past with no relief. CC: passes gas per rectum when urinating. If he has gas, then he will leak. Mildly improved from prior. Most bothersome sxs is leaking before he gets to the bathroom. Advised pt that this could be caused by waiting too long to void. Discussed timed voids or staring medications. PT states he would like to try timed voids and try Myrbetriq. Follow up in 3 mos. All questions/concerns were discussed. Pt to call the office if he encounters any issues prior. Pt acknowledges understanding. -Timed voiding q3h, bowel regimen (list of meds again provided to pt) -Will start Myrbetriq 25mg QD. Discussed the medication side effects, and the patient will monitor closely for these, as well as for symptom improvement. If severe side effects occur, the medication should be stopped and the office notified. Sent to pharmacy on file. 2. History of kidney stones (Z87.442: Personal history of urinary calculi) CTA AP 05/11/22 (Dr. Quan for vasculopathy) showed bilateral nephrolithiasis largest measuring 7mm within the right kidney. On personal review: BL lower pole stone burden near 1.5 cm. HU 900-1000, SSD 7-8 cm. At this time pt is not interested in doing and procedures to treat his stones. Not on blood thinners. Discussed the risks of waiting to treat his kidney stones including multiple, more invasive procedures and renal damage. Discussed different treatment options for stones. - Pt states he would like to hold off due to hesitancy of being put under anaesthesia and recent procedures. 3. Asymptomatic microscopic hematuria (R31.21: Asymptomatic microscopic hematuria) Micro UA 04/15/22 21-30 RBCs, likely due to stones S/p Cysto/UD 07/28/22 - neg for lesions Recent CT AP 05/2022 neg, s (more content not included)... [facility] Comment on above: Result Comment: Elec tronically Signed By: Mo LEIJA, Ivelisse Schreiber\.br\Date and Time Signed: 10/07/22 10:28 EDT\.br\Electronically Co-Signed By: Eleonora Belcher\.br\Date and Time Co-Signed: 10/07/22 09:25 EDT Consent for Procedure/Surger yon 07-29-2022 Consent for Procedure/Surgery [id number]:127 [facility] Patient Educationon 07-29-19 Patient Education Urology Erectile Dysfunction Erectile dysfunction (ED) is the inability to get or keep an erection in order to have sexual intercourse. ED is considered a symptom of an underlying disorder and is not considered a disease. ED may include: ? Inability to get an erection. ? Lack of enough hardness of the erection to allow penetration. ? Loss of erection before sex is finished. What are the causes? This condition may be caused by: ? Physical causes, such as: ? Artery problems. This may include heart disease, high blood pressure, atherosclerosis, and diabetes. ? Hormonal problems, such as low testosterone. ? Obesity. ? Nerve problems. This may include back or pelvic injuries, multiple sclerosis, Parkinson's disease, spinal cord injury, and stroke. ? Certain medicines, such as: ? Pain relievers. ? Antidepressants. ? Blood pressure medicines and water pills (diuretics). ? Cancer medicines. ? Antihistamines. ? Muscle relaxants. ? Lifestyle factors, such as: ? Use of drugs such as marijuana, cocaine, or opioids. ? Excessive use of alcohol. ? Smoking. ? Lack of physical activity or exercise. ? Psychological causes, such as: ? Anxiety or stress. ? Sadness or depression. ? Exhaustion. ? Fear about sexual performance. ? Guilt. What are the signs or symptoms? Symptoms of this condition include: ? Inability to get an erection. ? Lack of enough hardness of the erection to allow penetration. ? Loss of the erection before sex is finished. ? Sometimes having normal erections, but with frequent unsatisfactory episodes. ? Low sexual satisfaction in either partner due to erection problems. ? A curved penis occurring with erection. The curve may cause pain, or the penis may be too curved to allow for intercourse. ? Never having nighttime or morning erections. How is this diagnosed? This condition is often diagnosed by: ? Performing a physical exam to find other diseases or specific problems with the penis. ? Asking you detailed questions about the problem. ? Doing tests, such as: ? Blood tests to check for diabetes mellitus or high cholesterol, or to measure hormone levels. ? Other tests to check for underlying health conditions. ? An ultrasound exam to check for scarring. ? A test to check blood flow to the penis. ? Doing a sleep study at home to measure nighttime erections. How is this treated? This condition may be treated by: ? Medicines, such as: ? Medicine taken by mouth to help you achieve an erection (oral medicine). ? Hormone replacement therapy to replace low testosterone levels. ? Medicine that is injected into the penis. Your health care provider may instruct you how to give yourself these injections at home. ? Medicine that is delivered with a short applicator tube. The tube is inserted into the opening at the tip of the penis, which is the opening of the urethra. A tiny pellet of medicine is put in the urethra. The pellet dissolves and enhances erectile function. This is also called MUSE (medicated urethral system for erections) therapy. ? Vacuum pump. This is a pump with a ring on it. The pump and ring are placed on the penis and used to create pressure that helps the penis become erect. ? Penile implant surgery. In this procedure, you may receive: ? An inflatable implant. This consists of cylinders, a pump, and a reservoir. The cylinders can be inflated with a fluid that helps to create an erection, and they can be deflated after intercourse. ? A semi-rigid implant. This consists of two silicone rubber rods. The rods provide some rigidity. They are also flexible, so the penis can both curve downward in its normal position and become straight for sexual intercourse. ? Blood vessel surgery to improve blood flow to the penis. During this procedure, a blood vessel from a different part of the body is placed into the penis to allow blood to flow around (bypass) damaged or blocked blood vessels. ? Lifestyle changes, such as exercising more, losing weight, and quitting smoking. Follow these instructions at home: Medicines ? Take bgcn-ncl-ebxhoay and prescription medicines only as told by your health care provider. Do not increase the dosage without first discussing it with your health care provider. ? If you are using self-injections, do injections as directed by your health care provider. Make sure you avoid any veins that are on the surface of the penis. After giving an injection, apply pressure to the injection site for 5 minutes. ? Talk to your health care provider about how to prevent headaches while taking ED medicines. These medicines may cause a sudden headache due to the increase in blood flow in your body. General instructions ? Exercise regularly, as directed by your health care provider. Work with your health care provider to lose weight, if needed. ? Do not use any products that contain nicotine or tobacco. These products include cig (more content not included)... Normal [facility] Urology Office/Clinic Noteon 07-28-2022 Urology Office/Clinic Note Chief Complaint Cysto HPI Staff Cysto History of Present Illness I have reviewed and verified the staff HPI to be accurate for this encounter. Review of Systems PHQ Score Initial Depression Screen Score: 0 ROS - Provider Constitutional: denies weight loss, denies hot flashes. Eyes: denies eye problems. Gastrointestinal: denies nausea, denies vomiting. Cardiovascular: denies chest pain or angina. Integumentary: no dryness Musculoskeletal: denies musculoskeletal symptoms. ENMT: denies otolaryngeal symptoms. Respiratory: no shortness of breath. Heme/Lymph: denies easy bleeding tendency, denies easy bruising tendency. Psychiatric: no confusion, no anxiety. Genitourinary: denies dysuria, denies hematuria, denies discharge, moderate urinary frequency, moderate urinary hesitancy, severe nocturia, denies incontinence, denies genital sores Physical Exam Vitals & Measurements HR: 77(Peripheral) BP: 127/67 HT: 67 in HT: 169 cm WT: 71 kg WT: 156.2 lb BMI: 24.86 General Appearance: alert, no distress, well nourished, well developed male. Genitourinary: normal scrotum, normal testes, normal urethra, normal epididymis, normal vas deferens/spermatic cord. Flank Pain: none. Bladder: nonpalpable. Procedure Operative Information Anesthesia Type: Local Procedure: Local Cystoscopy with Urethral Dilation Complications: None Surgical risks, benefits, details of the procedure have been explained to the patient. Full informed consent has been obtained. Intraoperative Information Prepped: Patient is brought back to the endoscopy suite. Patient is placed in supine position. Patient prepped in the usual fashion with Betadine solution. 2% Xylocaine Jelly is placed per Urethra. After waiting several minutes, the Cystoscope is introduced. The Urethra is: Tight - distal bulbar urethral stricture, soft, 14Fr , able to accomodate scope with manipulation The Prostatic Urethra is: Unobstructedprior TUR defect mild lateral hypertrophy. Mild bladder neck contracture but able to easily accommodate scope The Bladder: Normal, Trabeculated: Mild (1) No tumors, No Stones. The Ureteral orifices: Show efflux of clear urine The Urethra was dilated to: 16-24 Occitan with connor sounds without difficulty Soft 14 fr distal bulbar ureteral stricture. Specimens Removed: None Removal: Cystoscope is removed. The patient tolerated it well. Assessment/Plan 1. Asymptomatic microscopic hematuria (R31.21: Asymptomatic microscopic hematuria) Micro UA done 04/15/2022 21-30 RBCs Likely due to stones Cysto done IO today - neg for lesions 2. 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 (N35.919: Unspecified urethral stricture, male, unspecified site) Cysto/UD done IO today. 16-24Fr Connor sound dilation for Soft 14 fr distal bulbar ureteral stricture Straining to void. -Monitor sx improvement in 2-3 mth f/u 3. BPH with obstruction/lower urinary tract symptoms (N40.1: Benign prostatic hyperplasia with lower urinary tract symptoms) PSA: 02/10/19 - 0.13 09/09/20 - <0.05 02/10/22 - <0.13 hx TURP by DLS 2019, prostate small on CT scan 11-20g, calcifications Pt not taking any BPH or bladder meds at this time. Has been getting up 4x/night to void, for years. Did try Doxazosin in the past with no relief. CC: passes gas per rectum when urinating. If he has gas, then he will leak. Pt has not been taking a stool softener to help alleviate his stool burden. Taking fiber but minimal water. Again thoroughly counseled on bowel regimen, again provided list of meds to take OTC. Significant stool burden and distended rectum pushing on prostate and bladder. Calcifications within prostate too Most bothersome sxs is leaking when he passes gas. Prostatitis sx have been ongoing since February. KML tx'd w/Bactrim therapy at that time. Pt stopped after several days due to severe diarrhea and the above rash. No bothersome daytime sx. Likely due to severe constipation and potentially calcifications, OAB sx -No prostatic obstruction -May be secondary to stricture above. If no improvement, will add mirabgeron (pt declined today). Prior PVR 26 ml -Timed voiding, bowel regimen 4. Kidney stones (N20.0: Calculus of kidney) CTA AP 05/11/2022 (Dr. Quan for vasculopathy) showed bilateral nephrolithiasis largest measuring 7mm within the right kidney. On personal review: BL lower pole stone burden near 1.5 cm. HU 900-1000, SSD 7-8 cm. At this time pt is not interested in doing and procedures to treat his stones. Undergoing multiple vascular procedures, s/p AAA repair, about to undergo CEA. Not on blood thinners. Discussed elevated risk of periop complications, needs to have those procedures first and health stabilized. 5. Penile rash (R21: Rash and other nonspecific skin eruption) Pt states rash has completely cleared up after stopping Bactrim. Denies irritation. Head of penis is not red, but is discolored. Not bothersome. D/c use of cream. Resolved 6. ED (erectile d (more content not included)... Normal [facility] Comment on above: Result Comment: Elec tronically Signed By: Mo LEIJA, Ivelisse Schreiber\.br\Date and Time Signed: 07/28/22 10:49 EDT\.br\Electronically Co-Signed By: Clarissa Joaquin MA\.br\Date and Time Co-Signed: 07/28/22 10:28 EDT Activated Clotting Timeon Activated Clotting Time POC 335 s High 90-139 [facility] Comment on above: Result Comment: Refe rence Range: 90-139 (Non-heparinized) PERFORMED BY: [place] [address] PATHOLOGIST MANAGER [employer] ZENA CASTELLON M.D. Performed By: #### C BC, BMP #### [facility] [address] [place] [address] Activated Clotting Time POC 143 s High 90-139 [facility] Comment on above: Result Comment: Refe rence Range: 90-139 (Non-heparinized) PERFORMED BY: [place] [address] PATHOLOGIST MANAGER [employer] ZENA CASTELLON M.D. Performed By: #### C BC, BMP #### [facility] [address] [place] [address] Blood activated clotting sue e by coagulation assayOrdered By: Raul Quan on 07-08-2022 ACT Coag (Bld) 335 s 90-139 [facility] Comment on above: Reference Range: 90- 139 (Non-heparinized) Laboratory - CoagulationOrde red By: Raul Quan on 07-08-2022 PT Coag (PPP) [Time] 11.7 s 9.0-12.9 [facility] Platelet poor plasma interna tional normalized ratio (INR) by coagulation assay (relatOrdered By: Raul Quan on 07-08-2022 INR Coag (PPP) [Relative time] 1.0 {INR} [facility] Comment on above: INR Therapeutic Rang e A) Pre- and Peroperative OAT started two weeks before surgery. NOT HIP SURGERY: 1.5 - 2.5 HIP SURGERY: 2 - 3B) Primary and secondary prevention of venous THROMBOSIS: 2 - 3C) Active venous thrombosis, pulmonary embolismand prevention of recurrent venous thrombosis: 2 - 3D) Prevention of arterial thromboembolismincluding patients with mechanical heart valves: 3 - 4.5 Prothrombin Time INRon 07-08 INR Coag (PPP) [Relative time] 1.0 {INR} Normal [facility] Comment on above: Result Comment: INR Therapeutic Range A) Pre- and Peroperative OAT started two weeks before surgery. NOT HIP SURGERY: 1.5 - 2.5 HIP SURGERY: 2 - 3 B) Primary and secondary prevention of venous THROMBOSIS: 2 - 3 C) Active venous thrombosis, pulmonary embolism and prevention of recurrent venous thrombosis: 2 - 3 D) Prevention of arterial thromboembolism including patients with mechanical heart valves: 3 - 4.5 PERFORMED BY: [place] [address] PATHOLOGIST MANAGER [employer] ZENA CASTELLON M.D. Performed By: #### C BC, BMP #### [facility] [address] [place], [place] [id number] [facility] PT Coag (PPP) [Time] 11.7 s Normal 9.0-12.9 [facility] Comment on above: Performed By: #### C BC, BMP #### [facility] [address] [place] [address] [place] Type and Screenon 07-08-2022 ABO and Rh group Nom (Bld) Blood group A Rh(D) positive Normal [facility] Comment on above: Result Comment: PERF ORMED BY: [place] [address] PATHOLOGIST MANAGER [employer] ZENA CASTELLON M.D. Alanine aminotransferase [En zymatic activity/volume] in Serum or PlasmaOrdered By: Raul Quan on 07-01-2022 ALT [Catalytic activity/Vol] 9 U/L 7-52 [facility] Albumin [Mass/volume] in Ser um or Plasma by Bromocresol green (BCG) dye binding methoOrdered By: Raul Quan on 07-01-2022 Albumin BCG dye [Mass/Vol] 3.7 g/dL 3.5-5.7 [facility] Alkaline phosphatase [Enzyma tic activity/volume] in Serum or PlasmaOrdered By: Raul Quan on 07-01-2022 ALP [Catalytic activity/Vol] 96 U/L 34-104 [facility] Aspartate aminotransferase [ Enzymatic activity/volume] in Serum or PlasmaOrdered By: Raul Quan on 07-01-2022 AST [Catalytic activity/Vol] 14 U/L 13-39 [facility] Basophils Auto (Bld) [#/Vol] Ordered By: Raul Dovermary ann on 07-01-2022 Basophils (Bld) [#/Vol] 0.1 10*3/uL 0.0-0.2 [facility] Basophils/100 WBC Auto (Bld) Ordered By: [facility] 07-01-2022 Basophils/100 WBC (Bld) 0.7 % . [facility] Bilirubin.total [Mass/volume ] in Serum or PlasmaOrdered By: Raul Dovermary ann on 07-01-2022 Bilirubin [Mass/Vol] 0.5 mg/dL 0.3-1.0 [facility] Calcium [Mass/volume] in Ser um or PlasmaOrdered By: Raul Dovermary ann on 07-01-2022 Calcium [Mass/Vol] 8.5 mg/dL 8.6-10.3 [facility] Carbon dioxide, total [Moles /volume] in Serum or PlasmaOrdered By: Raul Dovermary ann on 07-01-2022 CO2 [Moles/Vol] 24.6 mmol/L 21.0-31.0 [facility] Chloride [Moles/volume] in S aisha or PlasmaOrdered By: Raul Dovermary ann on 07-01-2022 Chloride [Moles/Vol] 100 mmol/L 98-107 [facility] Complete Blood Count Auto Di ffon 07-01-2022 Basophils (Bld) [#/Vol] 0.1 10*3/uL Normal 0.0-0.2 [facility] Comment on above: Result Comment: PERF ORMED BY: [facility] [address] [address] PATHOLOGIST MANAGER [employer] ZENA CASTELLON M.D. Performed By: #### C BC, CMP #### [address] Basophils/100 WBC (Bld) 0.7 % Normal . [facility] Comment on above: Performed By: #### C BC, CMP #### [address] Eosinophils (Bld) [#/Vol] 0.1 10*3/uL Normal 0.0-0.45 [facility] Comment on above: Performed By: #### C BC, CMP #### [address] Eosinophils/100 WBC (Bld) 1.5 % Normal . [facility] Comment on above: Performed By: #### C BC, CMP #### [address] Erythrocyte distribution width (RBC) [Ratio] 13.0 % Normal 12.0-14.8 [facility] Comment on above: Performed By: #### C BC, CMP #### [address] Hematocrit (Bld) [Volume fraction] 36.4 % Low 38.8-50.0 [facility] Comment on above: Performed By: #### C BC, CMP #### [address] Hemoglobin (Bld) [Mass/Vol] 12.1 g/dL Low 13.0-17.0 [facility] Comment on above: Performed By: #### C BC, CMP #### [address] Lymphocytes (Bld) [#/Vol] 1.6 10*3/uL Normal 1.00-4.8 [facility] Comment on above: Performed By: #### C BC, CMP #### [address] Lymphocytes/100 WBC (Bld) 19.3 % Normal . [facility] Comment on above: Performed By: #### C BC, CMP #### [address] MCH (RBC) [Entitic mass] 30.2 pg Normal 27.5-35.2 [facility] Comment on above: Performed By: #### C BC, CMP #### [address] MCV (RBC) [Entitic vol] 90.7 fL Normal 83.5-101 [facility] Comment on above: Performed By: #### C BC, CMP #### [address] Mean Corpuscular HGB Conc 33.3 g/dL Normal 32.5-35.6 [facility] Comment on above: Performed By: #### C BC, CMP #### [address] Monocytes (Bld) [#/Vol] 0.9 10*3/uL High 0.0-0.8 [facility] Comment on above: Performed By: #### C BC, CMP #### [address] Monocytes/100 WBC (Bld) 11.1 % Normal . [facility] Comment on above: Performed By: #### C BC, CMP #### [address] Neutrophils (Bld) [#/Vol] 5.7 10*3/uL Normal 1.8-7.7 [facility] Comment on above: Performed By: #### C BC, CMP #### [address] Neutrophils/100 WBC (Bld) 67.4 % Normal . [facility] Comment on above: Performed By: #### C BC, CMP #### [address] NRBC% 0.0 /100{WBC} Normal 0-0.5 [facility] Comment on above: Performed By: #### C BC, CMP #### [address] Platelet mean volume (Bld) [Entitic vol] 7.6 fL Normal 6.6-10.1 [facility] Comment on above: Performed By: #### C BC, CMP #### [address] Platelets (Bld) [#/Vol] 198 10*3/uL Normal 150-450 [facility] Comment on above: Performed By: #### C BC, CMP #### [address] RBC (Bld) [#/Vol] 4.01 10*6/uL Normal 3.90-5.60 [facility] Comment on above: Performed By: #### C BC, CMP #### [address] WBC (Bld) [#/Vol] 8.5 10*3/uL Normal 4.1-10.5 [facility] Comment on above: Performed By: #### C BC, CMP #### [address] Comprehensive Metabolic Pane santo 07-01-2022 Albumin [Mass/Vol] 3.7 g/dL Normal 3.5-5.7 [facility] Comment on above: Performed By: #### C BC, CMP #### [address] Albumin/Globulin [Mass ratio] 1.1 {ratio} Normal [facility] Comment on above: Performed By: #### C BC, CMP #### [address] ALP [Catalytic activity/Vol] 96 U/L Normal 34-104 [facility] Comment on above: Result Comment: PERF ORMED BY: [place] [address] PATHOLOGIST MANAGER [employer] ZENA CASTELLON M.D. Performed By: #### C BC, CMP #### [address] ALT [Catalytic activity/Vol] 9 U/L Normal 7-52 [facility] Comment on above: Performed By: #### C BC, CMP #### [facility] [address] [place] [id number] [place] Anion gap [Moles/Vol] 13.8 mmol/L Normal 6.0-15.0 [facility] Comment on above: Performed By: #### C BC, CMP #### [facility] [address] [place] [id number] [place] AST [Catalytic activity/Vol] 14 U/L Normal 13-39 [facility] Comment on above: Performed By: #### C BC, CMP #### [facility] [address] [place] [id number] [place] Bilirubin [Mass/Vol] 0.5 mg/dL Normal 0.3-1.0 [facility] Comment on above: Performed By: #### C BC, CMP #### [facility] [address] [place] [id number] [place] Calcium [Mass/Vol] 8.5 mg/dL Low 8.6-10.3 [facility] Comment on above: Performed By: #### C BC, CMP #### [facility] [address] [place] [id number] [place] Chloride [Moles/Vol] 100 mmol/L Normal 98-107 [facility] Comment on above: Performed By: #### C BC, CMP #### [facility] [address] [place] [id number] [place] CO2 [Moles/Vol] 24.6 mmol/L Normal 21.0-31.0 [facility] Comment on above: Performed By: #### C BC, CMP #### [facility] [address] [place] [id number] [place] Creatinine [Mass/Vol] 0.87 mg/dL Normal 0.70-1.30 [facility] Comment on above: Performed By: #### C BC, CMP #### [facility] [address] [place] [id number] [place] GFR/1.73 sq M.predicted MDRD (S/P/Bld) [Vol rate/Area] mL/min/{1.73_m2} Normal [facility] Comment on above: Performed By: #### C BC, CMP #### [facility] [address] [place] [address] [place] Globulin (S) [Mass/Vol] 3.4 g/dL Normal [facility] Comment on above: Performed By: #### C BC, CMP #### [facility] [address] [place] [address] [place] Glucose [Mass/Vol] 163 mg/dL High 70-100 [facility] Comment on above: Result Comment: [place] Glucose Reference Range is dependent on time and content of last meal. Glucose of more than 200 mg/dL in a nonstressed, ambulatory subject supports the diagnosis of Diabetes Mellitus. ADA recommended reference range Performed By: #### C BC, CMP #### [facility] [address] Potassium [Moles/Vol] 4.4 mmol/L Normal 3.5-5.1 [facility] Comment on above: Performed By: #### C BC, CMP #### [facility] [address] [place] [address] [place] Protein [Mass/Vol] 7.1 g/dL Normal 6.4-8.9 [facility] Comment on above: Performed By: #### C BC, CMP #### [facility] [address] [place] [address] [place] Sodium [Moles/Vol] 134 mmol/L Low 136-145 [facility] Comment on above: Performed By: #### C BC, CMP #### [facility] [address] [place] [id number] [place] Urea nitrogen [Mass/Vol] 17 mg/dL Normal 7-25 [facility] Comment on above: Performed By: #### C BC, CMP #### [facility] [address] [place] [address] [place] Creatinine [Mass/volume] in Serum or PlasmaOrdered By: Raul Quan on 07-01-2022 Creatinine [Mass/Vol] 0.87 mg/dL 0.70-1.30 [facility] ECG 12 lead ECGon 07-01-2022 ECG 12 lead ECG [facility] [place] [address] Electrocardiograph Report Signed Patient: Chico Baker MR#: [id number] 284 : 1940 Acct:[id number] Age/Sex: 82 / M ADM Date: 07/01/22 Loc: Room: Type: [facility] Attending Dr: Raul Quan MD Ordering Provider: Raul Quan MD Date of Service: 07/01/22 ECG/ECG 12 lead ECG: surgery 07/08/22 Copies to: Test Reason : Blood Pressure : / mmHG Vent. Rate : 071 BPM Atrial Rate : 071 BPM P-R Int : 164 ms QRS Dur : 090 ms QT Int : 396 ms P-R-T Axes : 047 077 064 degrees QTc Int : 430 ms Normal sinus rhythm Normal ECG When compared with ECG of 06-OCT-2021 10:03, No significant change was found Confirmed by ROSANNE SHABAZZ DO ([id number]) on 07/03/2022 6:37:05 AM Referred By: AVELINA Electronically Signed By:ROSANNE SHABAZZ DO Transcribed By: MUS Signed By Rosanne Shabazz DO 07/03 0637 Normal [facility] Eosinophils Auto (Bld) [#/Vo l]Ordered By: Raul Quan on 07-01-2022 Eosinophils (Bld) [#/Vol] 0.1 10*3/uL 0.0-0.45 [facility] Eosinophils/100 WBC Auto (Bl d)Ordered By: Raul Quan on 07-01-2022 Eosinophils/100 WBC (Bld) 1.5 % . [facility] Erythrocyte distribution wid th Auto (RBC) [Ratio]Ordered By: Raul Quan on 07-01-2022 Erythrocyte distribution width (RBC) [Ratio] 13.0 % 12.0-14.8 [facility] Globulin Calc (S) [Mass/Vol] Ordered By: Raul Quan on 07-01-2022 Globulin (S) [Mass/Vol] 3.4 g/dL [facility] Glucose [Mass/volume] in Ser um or PlasmaOrdered By: Raul Quan on 07-01-2022 Glucose [Mass/Vol] 163 mg/dL 70-100 [facility] Comment on above: ADA recommended refe rence rangeRandom Glucose Reference Range is dependent on time and content of last meal. Glucose of more than 200 mg/dL in a nonstressed, ambulatory subject supports the diagnosis of Diabetes Mellitus. Hematocrit Auto (Bld) [Volum e fraction]Ordered By: Raul Quan on 07-01-2022 Hematocrit (Bld) [Volume fraction] 36.4 % 38.8-50.0 [facility] Hemoglobin [Mass/volume] in BloodOrdered By: Raul Quan on 07-01-2022 Hemoglobin (Bld) [Mass/Vol] 12.1 g/dL 13.0-17.0 [facility] Leukocytes [#/volume] correc shyann for nucleated erythrocytes in Blood by Automated counOrdered By: Raul Quan on 07-01-2022 WBC corrected for nucl RBC Auto (Bld) [#/Vol] 8.5 10*3/uL 4.1-10.5 [facility] Lymphocytes Auto (Bld) [#/Vo l]Ordered By: Raul Quan on 07-01-2022 Lymphocytes (Bld) [#/Vol] 1.6 10*3/uL 1.00-4.8 [facility] Lymphocytes/100 WBC Auto (Bl d)Ordered By: Raul Quan on 07-01-2022 Lymphocytes/100 WBC (Bld) 19.3 % . [facility] MCH Auto (RBC) [Entitic mass ]Ordered By: Raul Quan on 07-01-2022 MCH (RBC) [Entitic mass] 30.2 pg 27.5-35.2 [facility] MCHC Auto (RBC) [Mass/Vol]Or dered By: Raul Quan on 07-01-2022 MCHC (RBC) [Mass/Vol] 33.3 g/dL 32.5-35.6 [facility] MCV Auto (RBC) [Entitic vol] Ordered By: Raul Quan on 07-01-2022 MCV (RBC) [Entitic vol] 90.7 fL 83.5-101 [facility] Monocytes Auto (Bld) [#/Vol] Ordered By: Raul Quan on 07-01-2022 Monocytes (Bld) [#/Vol] 0.9 10*3/uL 0.0-0.8 [facility] Monocytes/100 WBC Auto (Bld) Ordered By: Raul Quan on 07-01-2022 Monocytes/100 WBC (Bld) 11.1 % . [facility] Neutrophils Auto (Bld) [#/Vo l]Ordered By: Raul Quan on 07-01-2022 Neutrophils (Bld) [#/Vol] 5.7 10*3/uL 1.8-7.7 [facility] Neutrophils/100 WBC Auto (Bl d)Ordered By: Raul Quan on 07-01-2022 Neutrophils/100 WBC (Bld) 67.4 % . [facility] No Panel InformationOrdered By: Raul Quan on 07-01-2022 Estimated GFR (CKD-EPI) > 60.0 mL/Min [facility] Creatinine Clearance (Chem N/A [facility] Nucleated erythrocytes [Pres ence] in Blood by Automated countOrdered By: Raul Quan on 07-01-2022 Nucleated RBC Auto Ql (Bld) 0.0 /100{WBC} 0-0.5 [facility] Platelet mean volume Auto (B ld) [Entitic vol]Ordered By: Raul Quan on 07-01-2022 Platelet mean volume (Bld) [Entitic vol] 7.6 fL 6.6-10.1 [facility] Platelets Auto (Bld) [#/Vol] Ordered By: Raul Quan on 07-01-2022 Platelets (Bld) [#/Vol] 198 10*3/uL 150-450 [facility] Potassium [Moles/volume] in Serum or PlasmaOrdered By: Raul Quan on 07-01-2022 Potassium [Moles/Vol] 4.4 mmol/L 3.5-5.1 [facility] Protein [Mass/volume] in Ser um or PlasmaOrdered By: Raul Quan on 07-01-2022 Protein [Mass/Vol] 7.1 g/dL 6.4-8.9 [facility] RBC Auto (Bld) [#/Vol]Ordere d By: Raul Quan on 07-01-2022 RBC (Bld) [#/Vol] 4.01 10*6/uL 3.90-5.60 [facility] Serum or plasma albumin/glob ulin mass ratioOrdered By: Raul Quan on 07-01-2022 Albumin/Globulin [Mass ratio] 1.1 {ratio} [facility] Serum or plasma anion gap de terminationOrdered By: Raul Quan on 07-01-2022 Anion gap [Moles/Vol] 13.8 mmol/L 6.0-15.0 [facility] Sodium [Moles/volume] in Ser um or PlasmaOrdered By: Raul Quan on 07-01-2022 Sodium [Moles/Vol] 134 mmol/L 136-145 [facility] Urea nitrogen [Mass/volume] in Serum or PlasmaOrdered By: Raul Quan on 07-01-2022 Urea nitrogen [Mass/Vol] 17 mg/dL 7-25 [facility] WBC Auto (Bld) [#/Vol]Ordere d By: Raul Quan on 07-01-2022 WBC (Bld) [#/Vol] 8.5 10*3/uL 4.1-10.5 [facility] Patient Educationon 06-25-19 Patient Education Urology Hematuria, Adult Hematuria is blood in the urine. Blood may be visible in the urine, or it may be identified with a test. This condition can be caused by infections of the bladder, urethra, kidney, or prostate. Other possible causes include: ? Kidney stones. ? Cancer of the urinary tract. ? Too much calcium in the urine. ? Conditions that are passed from parent to child (inherited conditions). ? Exercise that requires a lot of energy. Infections can usually be treated with medicine, and a kidney stone usually will pass through your urine. If neither of these is the cause of your hematuria, more tests may be needed to identify the cause of your symptoms. It is very important to tell your health care provider about any blood in your urine, even if it is painless or the blood stops without treatment. Blood in the urine, when it happens and then stops and then happens again, can be a symptom of a very serious condition, including cancer. There is no pain in the initial stages of many urinary cancers. Follow these instructions at home: Medicines ? Take wcfd-ses-uqvvpgr and prescription medicines only as told by your health care provider. ? If you were prescribed an antibiotic medicine, take it as told by your health care provider. Do not stop taking the antibiotic even if you start to feel better. Eating and drinking ? Drink enough fluid to keep your urine pale yellow. It is recommended that you drink 3?4 quarts (2.8?3.8 L) a day. If you have been diagnosed with an infection, drinking cranberry juice in addition to large amounts of water is recommended. ? Avoid caffeine, tea, and carbonated beverages. These tend to irritate the bladder. ? Avoid alcohol because it may irritate the prostate (in males). General instructions ? If you have been diagnosed with a kidney stone, follow your health care provider's instructions about straining your urine to catch the stone. ? Empty your bladder often. Avoid holding urine for long periods of time. ? If you are female: ? After a bowel movement, wipe from front to back and use each piece of toilet paper only once. ? Empty your bladder before and after sex. ? Pay attention to any changes in your symptoms. Tell your health care provider about any changes or any new symptoms. ? It is up to you to get the results of any tests. Ask your health care provider, or the department that is doing the test, when your results will be ready. ? Keep all follow-up visits. This is important. Contact a health care provider if: ? You develop back pain. ? You have a fever or chills. ? You have nausea or vomiting. ? Your symptoms do not improve after 3 days. ? Your symptoms get worse. Get help right away if: ? You develop severe vomiting and are unable to take medicine without vomiting. ? You develop severe pain in your back or abdomen even though you are taking medicine. ? You pass a large amount of blood in your urine. ? You pass blood clots in your urine. ? You feel very weak or like you might faint. ? You faint. Summary ? Hematuria is blood in the urine. It has many possible causes. ? It is very important that you tell your health care provider about any blood in your urine, even if it is painless or the blood stops without treatment. ? Take ugye-zgz-cjaamow and prescription medicines only as told by your health care provider. ? Drink enough fluid to keep your urine pale yellow. This information is not intended to replace advice given to you by your health care provider. Make sure you discuss any questions you have with your health care provider. Document Revised: 10/23/2020 Document Reviewed: 10/23/2020 [employer] Patient Education ? 2022 [employer]2020. [facility] Screenson 06-24-2022 Screens [id number]#[id number]:127 [facility] Screens [id number]#1.00CD:127 [facility] Urology Office/Clinic Noteon 06-24-2022 Urology Office/Clinic Note Chief Complaint Review CT HPI Staff Pt is here today to review CT done 05/11/22 due to microscopic hematuria & HX of Kidney Stones. Additional DX: Penile Rash, Prostatitis, BPH. *No Urology Medications. Back pain has subsided since last encounter. Denies visible blood in urine. Denies pain/burning when urinating. Still passing gas while urinating, every time. Did not try stool softener as recommended at last encounter. Did increase water intake, no improvement. Still getting up 3-4x/night to void. IPSS 15 History of Present Illness I have reviewed and verified the staff HPI to be accurate for this encounter. Review of Systems PHQ Score Initial Depression Screen Score: 0 ROS - Provider Constitutional: denies weight loss, denies hot flashes. Eyes: denies eye problems. Gastrointestinal: denies nausea, denies vomiting. Cardiovascular: denies chest pain or angina. Integumentary: no dryness Musculoskeletal: denies musculoskeletal symptoms. ENMT: denies otolaryngeal symptoms. Respiratory: no shortness of breath. Heme/Lymph: denies easy bleeding tendency, denies easy bruising tendency. Psychiatric: no confusion, no anxiety. Genitourinary: see HPI Physical Exam Vitals & Measurements HR: 66(Peripheral) RR: 16 BP: 120/75 HT: 67 in HT: 169 cm WT: 71 kg WT: 156.2 lb BMI: 24.86 General Appearance: alert, no distress, well nourished, well developed male. Genitourinary: Flank Pain: none. Bladder: nonpalpable. Assessment/Plan 1. Kidney stones (N20.0: Calculus of kidney) CTA AP 05/11/2022 (Dr. Quan for vasculopathy) showed bilateral nephrolithiasis largest measuring 7mm within the right kidney. On personal review: BL lower pole stone burden near 1.5 cm. HU 900-1000, SSD 7-8 cm. Discussed management options including continued observation vs extracorporeal shockwave lithotripsy vs staged ureteroscopy with laser lithotripsy/stone basket extraction possible stent vs PCNL . Risks/benefits of each were discussed. Overall stones stable since 09/2021. Discussed risks of spontaneous passage. Hx ESWL many years ago Asx from stones Hx Pagets dx -Encouraged fluid intake to prevent stone prevention/growth -At this time pt is not interested in doing and procedures to treat his stones. Undergoing multiple vascular procedures, s/p AAA repair, about to undergo CEA. Not on blood thinners. Discussed elevated risk of periop complications, needs to have those procedures first and health stabilized. -Will readdress ESWL followed by URS in the future Ordered: Urology Procedure Order 2. BPH with obstruction/lower urinary tract symptoms (N40.1: Benign prostatic hyperplasia with lower urinary tract symptoms) PSA: 02/10/19 - 0.13 09/09/20 - <0.05 02/10/22 - <0.13 IPSS 15 QOL 4 Prior PVR 26 ml hx TURP by DLS 2019, prostate small on CT scan 11-20g, calcifications Pt not taking any BPH or bladder meds at this time. Has been getting up 4x/night to void, for years. Did try Doxazosin in the past with no relief. CC: passes gas per rectum when urinating. If he has gas, then he will leak. Pt has not been taking a stool softener to help alleviate his stool burden. Taking fiber but minimal water. Again thoroughly counseled on bowel regimen, again provided list of meds to take OTC. Significant stool burden and distended rectum pushing on prostate and bladder. Calcifications within prostate too Most bothersome sxs is leaking when he passes gas. Prostatitis sx have been ongoing since February. KML tx'd w/Bactrim therapy at that time. Pt stopped after several days due to severe diarrhea and the above rash. No bothersome daytime sx. Likely due to severe constipation and potentially calcifications, OAB sx -take stool softener, miralax and increase fluid intake to help stool burden to alleviate urinary sxs. -Schedule Cysto to see if there is any regrowth, stricture or urethral stones -Will wait on starting a medication at this time. The risks and benefits for cystoscopy have been discussed. The risks include bleeding, infection, and irritation of the bladder and urinary channel, among others. The patient, after being informed of procedural details and after questions have been answered, wishes to proceed. Full informed consent has been obtained. Will order Local anesthesia. Ordered: Urology Procedure Order 3. Asymptomatic microscopic hematuria (R31.21: Asymptomatic microscopic hematuria) UA today shows Large blood. Micro UA done 04/15/2022 21-30 RBCs Likely due to stones Cysto as above Ordered: Urnls Dip Stick Auto w/o Microscopy POC 35476 Urology Procedure Order 4. Penile rash (R21: Rash and other nonspecific skin eruption) Pt states rash has completely cleared up after stopping Bactrim. Denies irritation. Head of penis is not red, but is discolored. Not bothersome. D/c use of cream. Resolved Ordered: Urology Procedure Order 5. ED (erectile dysfunction) (N52.9: Male erectile dysfunction, unspecified) (more content not included)... Normal [facility] Comment on above: Result Comment: Elec tronically Signed By: Mo LEIJA, Ivelisse Schreiber\.br\Date and Time Signed: 06/24/22 10:24 EDT RAD - CT Reporton 05-15-2022 RAD - CT Report [id number]#1.00CD:127 Normal [facility] RAD - CT Reporton 05-14-2022 RAD - CT Report [id number]#1.00CD:127 Normal [facility] RAD - CT Report [id number]#1.00CD:127 Normal [facility] CT angio abdomen pelvison CT angio abdomen pelvis [facility] Main [place] [address] [place] [address] CT Scan Report Signed Patient: Chcio Baker MR#: [id number] 284 : 1940 Acct:[id number] Age/Sex: 81 / M ADM Date: 05/11/22 Loc: CT Room: Type: [facility] Attending Dr: Raul Quan MD Copies to: Raul Quan MD Ordering Provider: Raul Quan MD Date of Service: 05/11/22 CT/CT angio abdomen pelvis: I65..23, I71.4 CTA abdomen and pelvis . CLINICAL DATA: Abdominal aortic aneurysm.. TECHNIQUE: Intravenous contrast-enhanced CT angiography of the abdomen and pelvis was then performed. Axial, sagittal, coronal and volume-rendered three-dimensional reconstructions were created and reviewed. This CT exam was performed using one or more of the following dose reduction techniques: Automated exposure control, adjustment of the mA and/or kV according to patient size, or use of iterative reconstruction technique. COMPARISON: CT abdomen and pelvis 11/11/2021. CTA abdomen and pelvis 09/18/2021 FINDINGS: Lung Bases: No acute findings. Organs:Hepatic steatosis. Questionable polyp versus focal wall thickening along the fundus of the gallbladder. Spleen, pancreas and adrenal glands all appear unremarkable. No enhancing renal mass or hydronephrosis. Cystic changes left kidney. Bilateral nephrolithiasis, largest measuring 7 mm within the right kidney. Endovascular repair is seen of a fusiform type infrarenal abdominal aortic aneurysm. The graft appears to be patent. The eklutna aneurysmal sac appears mildly decreased in size since the prior study now measuring 4.3 cm in greatest axial dimension. No critical stenosis or occlusion is seen involving the major visceral branches of the abdominal aorta. GI: Stomach is grossly unremarkable. Small bowel appears nondilated. Left colon diverticulosis with associated wall thickening involving the sigmoid colon. No significant surrounding inflammatory changes are seen.[ Pelvis:[Urinary bladder is grossly unremarkable. Prostate is normal size.] Peritoneum/Retroperitoneum :No free air, free fluid or lymphadenopathy.[ Abd wall/Bones:Abdominal wall demonstrates no acute findings. Osseous structures demonstrate degenerative change. Increased trabeculation of the left hemipelvis suggestive of Paget's disease. Right hip hardware partially visualized. Stable mild compression deformity L2 vertebral body.[ CT/CT angio abdomen pelvis IMPRESSION: 1. Endovascular repair of a fusiform type infrarenal abdominal aortic aneurysm without definitive complication such as endoleak. 2. Stable focal wall thickening involving the fundus of the gallbladder. This can BE further evaluated by ultrasound. 3. Bilateral nephrolithiasis. 4. Left colon diverticulosis with associated wall thickening of the sigmoid colon similar to the prior study likely a sequela of prior diverticulitis. 5. 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 Impression dictated by: Woody Payan Jr., D.OSilvestre05/11/2022 3:58 PM Dictation Location: [place] [address] Transcribed By: [facility] 05/11/22 1558 Dictated By: Woody Payan Jr, DO 05/11/22 1551 Signed By: 05/11/22 1558 Normal [facility] CT angio neckon 05-11-2022 CT angio neck [facility] Main [place] [address] [place] [address] CT Scan Report Signed Patient: Chico Baker MR#: [id number] [birth year] : 1940 Acct:[id number] Age/Sex: 81 / M ADM Date: 05/11/22 Loc: CT Room: Type: [facility] Attending Dr: Raul Quan MD Copies to: Raul Quan MD Ordering Provider: Raul Quan MD Date of Service: 05/11/22 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, I71.4 ([id number]) CT/CT angio head: I65.23, I71.4 CTA head and neck TECHNIQUE: Axial imaging of the head and neck with 2-D and 3-D reconstruction. 96cc of Isovue-370. The CT exam was performed using one or more the following dose reduction techniques: Automated exposure control, adjustment of the MA and/or Kv according to patient size, or use of the iterative reconstruction technique. Stenoses were measured using the NASCET criteria. COMPARISON:Carotid ultrasound 01/20/2022 HISTORY:Carotid stenosis The visualized aortic arch and great vessels are unremarkable. There is calcified and noncalcified plaquing at the origin of the right internal carotid artery with less than 50% stenosis identified. There is calcified and noncalcified plaquing of the proximal left internal carotid artery with greater than 70% stenosis identified. Extensive calcified plaquing and narrowing of the origin of the right vertebral artery identified. Vertebral arteries are symmetric. Origin of the left vertebral artery is patent. The carotid siphons and vertebral basilar systems are patent. No intracranial aneurysm, dissection, abrupt cut off or critical stenosis identified.. The intracranial arterial circulation is symmetrical.. CT/CT angio head IMPRESSION: Greater than 70% stenosis of the origin of the left internal carotid artery. Less than 50% stenosis of the right internal carotid artery. Marked narrowing involving the origin of the right vertebral artery. Unremarkable intracranial circulation. No intracranial aneurysm. Impression dictated by: Raul Solo M.D.05/11/2022 5:04 PM Dictation Location: [place] [address] Transcribed By: [facility] 05/11/22 170 Dictated By: Raul Solo DO 05/11/22 1648 Signed By: 05/11/22 1704 [facility] Creatinine (Bld) [Mass/Vol]O rdered By: Raul Quan on 05-11-2022 Creatinine [Mass/Vol] 0.9 mg/dL 0.6-1.3 [facility] Comment on above: ER/ESD physician is notified/shown all ISTAT results.Critical values may be confirmed by laboratory testing ifdeemed necessary by ER attending doctor. ISTAT XRay CREon 05-11-2022 Creatinine [Mass/Vol] 0.9 mg/dL Normal 0.6-1.3 [facility] Comment on above: Result Comment: ER/E SD physician is notified/shown all ISTAT results. Critical values may be confirmed by laboratory testing if deemed necessary by ER attending doctor. Performed By: #### C BC, BMP #### [facility] [address] [place] [address] [place] ISTAT GFR ( > 60 Normal [facility] Comment on above: Result Comment: GFR estimated reference range: According to KDOQI guidelines, <60 ml/min/1.73m2 is sufficient to diagnose a patient with chronic kidney disease. PERFORMED BY: [facility] [address] [place] [address] PATHOLOGIST MANAGER [employer] ZENA CASTELLON M.D. Performed By: #### C BC, BMP #### [facility] [address] [place] [id number] [place] ISTAT GFR (Non- Am > 60 Normal [facility] Comment on above: Performed By: #### C BC, BMP #### [facility] [address] [place] [id number] [facility] No Panel InformationOrdered By: Raul Quan on 05-11-2022 POC Estimated GFR > 60 [facility] Comment on above: GFR estimated refere nce range: According to KDOQI guidelines, <60 ml/min/1.73m2 is sufficient to diagnose a patient with chronic kidney disease. POC Estimated GFR Non- Amer > 60 [facility] Coding Summary.on 04-20-2022 Coding Summary. CD:[id number] Gh0bWw +PGhlYWQ+WV5LQKYgQ53obSJae O3RW1yNJT3TFDOZLJHKFN4AEW4 txTZ9QQyxV9BbjpJe OreacRJaGS62LYc5JLC1sYtoXE tdpL1gkIVuY4s7PgXbKD86dN08 YBihVPUwHmD5OlPwuoqyxOOb H1rxHuSbvXYjExc+PHRhYmxlIH giJDCzOFpwWLKqFvEwmQydOK5p Xu9eTPIoLFYxgMwtaZPrQkRs p7ysQFOrZTxjFC2dnPwtP1WoyQ F8FFGpr0r9Wj51hJX+PHRkIHN0 xDvxWLtot317VkXbz1beYSX2 hQEfGWokIZU0D70ez8M7YQOiEB StQTK7bXZ8nF6bcYroaomtY6Nw mMKpZaW2RCU6bMMxyA1htMgm vvxpcN6pLin+G58UOB1LTOCQND 3GUwa2W9LnJdzwaSZ+KG03CVSt EI48yDEohPAkw9mrjXu9UqBj EKUbFRK6gWjmEIjzf3PzCNLgZ9 9usBHen3E3UECbvBydmTWvEdJi lGH8pU2nKRukatcfs2dwxxoi Raiec7ghrc59xH51A70qUVyhHI BmWOU4BEPoWFMgtNhvxt1nkT4u Ii8+HJeae1snn7nbySj1FgIp TYZaikZutYdpNDB3w0KeRm21W8 EqrPeak6MbTuf3jv08mLFom4W8 nSZ7WLauLNYzaE1eWNwpIaK8 KYEnZxUnxQ66qSUiKToeTc1azX eehTbtZG6tLVPvanipTBOvoC5y GZFqjEAftJpwHX3bLUMyodof d232ZlKbAJD4EVZamGRxG9PnoL 6cMiQnNGXcKXKgK3UvsYBjTYgl Q444SWfpIwV2QQCsgzFeG6Ev VKRfyYfmYaI0w7Q0Gk8Ra5Gnoo etTDX4WYfbQKIjHwKnVxNjIlP1 J6SzKeh2NZSgkDnoQG1aA1Xr BCTypewoasakzDJ9KPQjGSQknF 49zIUjAHjgYp2st0I3j802DLVh NJLozR68Cr0pwVelMLPgcNPK hR2znmfhb2vzjryyHpJlWXFpCN l4YTy7XXEmyBcnQyUaYEP1QfF4 LUI2eSYvyD7lqVelxzatgO4b Oyc+A70kwM4hVMR3IUP9kcqhLD QlckLdMU25PA43V5LcMotdePCc bGU+COBowaWdnGwuTP5vKkGp g1fda4EiVIcjA2IqUDZbLUcmWc o4MSCkQZL0qDE5tA3qMBRuLNee c1Q0xJD7W8TwovHubo2zm2ss QREiSGisK23doCRal8V3LXRzfU W1ENLnhBmeUmSvhC89Ygm+PGNv pUvlu8OwQflhe7ilp2rgjIm9 YkRrAAQyopNehInrBPM6y1KuMu 31P43yWJfoILEeINFoFTYhERIh kHvpfh2ueS1uIr9+PGNvbCB3 hGV6qX5aUHKgMbT4BXtlO539Id SpnNXrDbimt5uww2kyzMc5OnMc XCDjeyAybXkzHKY0f2OuHe87 X05mZWucFGCeCKWxEOUfZWCzfK hzwi1odD3aNs0+JI6ow9ifgl86 tB86wLR+PVHvTUL4rDetSTle UJYuyR3oBEueZmR7CEKfFnBhsD 96uKJvSYjiVb3hyBelvAzzXV4m AKOyvtcmp393SkNnt5tnVXNy eCEzYSxmOZU6U13kq8I8HULjSF OnDDN7uEQ7zL1jrQjnjinyiZVn yMdogzQvjNjeKUazZYvhZ131 IHRvcDsnPlBhdGllbnQgTmFtZT m5C0DsRal8ZWGozLueBL2weFLf LSqfSq8cwIncvBstSN3vHWPv fnuye345PjGng7seYJKupUTsQX vyETQ7F04ua6I9QKDuFSIdMRS5 vAF7pR5nfHqwkohhzAQhbTrq ckJjeKabLCpnPNmmZ470FBHlaM oiSpYculQvGEKabBR9HY46BK42 wMRwm0H2jYW2T3IyPLLayntb kwjgnQR4QMXfHEXxwJ31Hz5jwR mzXy1nZOWaMNR0HGDhqJGdM6Mb wB7gOvHkPKHwEVGbR0RqmCRq CLzyF706WLznDqV9SWGglvOjJ6 AcABFvaPipAmY2m9N1Bd7BI9G8 RE98YS27qIRta8I1kFH9Q9Au SKKkdwjpntbppUE7ZJVvKFJfnL 62Xo6tzUgkSt0xQHPuIFA3ARLv rDTmV4ZwbP7hMrGnFRPuTQGf V1WklRIcZDqrV561SZfjWjI5TL WhdnVeC8LdQMIwbUiiThT4x9B2 Oh6MNVv3FS98FL69dIDcs4I8 qGF3A8NnQVWlgmnltlfikRO8VT OmXNSvvL67Eb3wbZgdXp5yFVWq TAO4HLAccNNgX8WxqW0aWdYc AJFpBZVjY7ItqFEbTKvzA673GC vzYpT7FDEkbxPnN3HpWSPfiHhs JvW2g0T9Po1SVAMfTS50ZSA7 xWR1CS57YT35T0VyAfhqpXVuoU U+PHRhYmxlIHdpZHRoPScxMDAl VbVvcItbZQ9eEm9zVYXdHCRt jCeguDEkApKab1lcKAMpKPqzDJ 2prThtY3OfxZO4LUFan7r0Tr96 V57iH2AvuCK+NCXbmRJ1fVI4 oR4rOnNeJdT8FXhnV501QvKlmU HcWciyq6auq7imoUx9VrM5QTEc ieLyuGiiULC2p6LwHa08Q36q IHdpZHRoPSIxNSUiIHZhbGlnbj 1ucC7zFt0+UQUcbDH4pPP3hV2c AzUaPkR6JGudF703DvPmeNEm Gsfow9oym7efnUk1GjJsFDXmkk CzdGfnGNN1r6BsQg65L8BbbMlw a2VdUlt2rs83aIFzu7E1nWH9 X1VqVIMqlusskLPcmJvfLC2xSL XgtzifMEUyrQ1qYRRmW2k1HpAo ZiD3YGcdH5FkgxY9QEZqsRRh PVowYOT9N61lm7V4FJSyIOUkUC D5qGJ6tF4wkPnjtgmorWZhzXep mcGaeGbaRRvqZLyrF029LKWm qKxuAOCyiX3rDBYvkTTgkHaoVA 6mGJIubqwsMj9VTL5XELJZOLRY EBDGJPb9Z0PwAcd9IEUerFba VX7koJRxWGujBh1koMovoTucKT 6dFGFtvpcdBDJvqS2oTQAxeYOi uMfgDC4oHRLvnucaq167LaTk KCK1NANzkGFaZ4YjsU0lQnRtSW KzEGAqM3NolFGiZQfxF309JWqe NiX6JIFwsjClZ7ZvKZEdlJdu KaE4f3M2Dy1kBA8xUN0tYXMbDS 70FP80aZTgp4A1iXS7O0AtZRFg knikydefoVB6MYQzVHHzyV29 vYRhIQdhCf4qc0C4v868TOXcBT NgqD74Ep0gkUqwHOObuBRKaZ1g apbxm8verecmDcIoEUIyURq2 PKs2RBBbxNcePvQfSRM3KyT7PI A1aRMijJ3auMynikowmC1yBfk+ HqwePBCvdlP2S2LsRai4AUNs mRjeLH4lcRZbYSlrWt7quLshzO ofZD8oSESwlglnFWOatJ7aTIWn hOKmzHruKQ9qTFZjuzrsp530 FdYhJCJ3TARzcVWyU3UnnL4wXm VqFXNaQTOdF2EuvJRnYEdfQ395 IXutSsA9BQKxlzYyZ8BwYGRi qIlhHlZ6f6N2Fc7VFWanSO93NP 11sUCbf1X8yZF9Q7ZtIPEzdedv uiggeHH3JCEkYMDlcA55fTVx XWwoLm7bn7V3l142OIZgZWXwhY 69Ls5wuAsoCECcsNLVwM9zsqay s5dfzlbbHeQzBTWtQBm8YQw4 UVLqeEbmUzQlPGF0BeM3YIK2vW AzjR3aqWephbapaU5vCon+TGFi QVXed1Pmi8CkJG20ZR02D2Id PjwvdGFibGU+PHRhYmxlIHdpZH QqODguPVAzVfVmuVdmSY5ySy8l BPOiZOWzoYpjiMGiHyXph7gw JOQwJYiiJJ9umRasQ2EjkLO2ZJ Hmh1f2Lj88R93hW2CriMQ+PGNv qMR4kBP8cP9kIjAyBnX7UYgp H803DnLglPOiEnhbw3cye0nbeJ q6UbYtHUIberBihYtkBDN0f1Rm Tq07O99eFLuoSVGfOKNkBWWe PMLarXsddk3vqB5cHf2+PGNvbC B1xIJ6oG5mLwFcVdP5BHcqN297 WqIeyVZbMwpsV65yQ0YcvAN+ BGCvKbb4LYApdBjmVC6mpTTdPL efIx1dCDT3TbMaIbDtDJojD1Vl ELLzhllrybsxiFS9ZWAcFRXa tW98Mn3wvZuqLd5dRMXvKBA7LC LrxQByS4AggH9bYxLdWLVjRSBg D5KllDPkNOunA330ZTdiJtE3 IQNqgxTaR6WsNESzfNlrOlT3v3 D2If0RxHqzrNMvGZ8mEgWuSJk5 X5NvLok1SHHyqGigRG3ppUPn ZUnsLe4bhSwkzPmhRB3eDVPjnx mpb180NxDxy9ytCBFnlWWjOAie WCD5P46jd6F2XYEdGYNkJWF8 xWC5bU6nrZuhyblqtUVyjPwqvf MfbWuaKFieVVoeU866WSVqsKuv KhXSEjw5X3YqEjv6MXKjwWal MJ3gpMBmNEzrMb2xnYlnxPnqFC 9pPZUzvfyzg800UiZbv1aaJPGd hQHwDOfjVUK9Q06ot1S8HFVt PIAkMCP6tJO0aM8wlJlvgtfrjJ AvgNdwtfKzqGlnIFreCDzgP243 RJBvhPfsQl1LHsi1I7TuWuw7 RCRveWwlUG1zkJLoBOfvCk8qqZ likHtlOK7mBMKpxsods651SmYd v3rvMDDciEHrXBumKSK8H55i w9H6UCOpJLQmEXQ0yUT3cR0vcP lnbjogbGVmdDsgdmVydGljYWwt CBbzT178NZGutLdlSuCpwEKl OjwvdGQ+GH39om53H7KqVebeMs o0FHZoRZU8tDI5kA5hTUKbUPpp l3D6xZI6L3AcxgNjrv0iz5kh YXBz (more content not included)... Normal [facility] Screenson 04-16-2022 Screens [id number]#1.00CD:127 Normal [facility] Screens [id number]#1.00CD:127 Normal [facility] Ambulatory Visit Summaryon 0 04-15-2022 Ambulatory Visit Summary CHICO BAEKR :1940 Visit Date:04/15/2022 Ambulatory Visit Instructions Your Diagnosis Penile rash Prostatitis Microhematuria BPH with obstruction/lower urinary tract symptoms History of kidney stones Tests Performed Urnls Dip Stick Auto w/o Microscopy POC [address]24 CT Abdomen/Pelvis w/o Contrast -- Results Pending -- Please visit your patient portal for your results or contact your primary care physician. Your Care Team Attending Physician - Ivelisse Hassan MD Primary Care Physician - SHAILESH DUNHAM DO This Is Your Medications List Contact prescribing physician if questions or concerns Misc Prescription (#####) aspirin (aspirin 81 mg oral capsule) calcium citrate (calcium (as calcium citrate) 200 mg oral tablet) carvedilol isosorbide dinitrate losartan (losartan 25 mg Tab) pravastatin Procedures Performed AAA - Repair of abdominal aortic aneurysm using bifurcation graft (02/05/2022), Transurethral resection of prostate (10/18/2019), Cystoscope (04/06/2019), Colonoscopy (10/06/2016), Arthroscopy of knee, Cardiac catheterization, left heart, Esophagogastroduodenoscopy . Discharge Vitals Heart Rate (Peripheral) 68 Respiratory Rate 16 Blood Pressure 122/78 Height 169 cm Height 67 in Weight 71 kg Weight 156.2 lb BMI 24.86 What to do next Scheduled Follow-Up Appointments Wednesday 9:30 AM EDT With: Ivelisse Hassan MD Where: [facility] Patient Educationon 04-15-19 23 Patient Education Infectious Disease Prostatitis Prostatitis is swelling or inflammation of the prostate gland. The prostate is a walnut-sized gland that is involved in the production of semen. It is located below a man's bladder, in front of the rectum. There are four types of prostatitis: ? Chronic nonbacterial prostatitis. This is the most common type of prostatitis. It may be associated with a viral infection or autoimmune disorder. ? Acute bacterial prostatitis. This is the least common type of prostatitis. It starts quickly and is usually associated with a bladder infection, high fever, and shaking chills. It can occur at any age. ? Chronic bacterial prostatitis. This type usually results from acute bacterial prostatitis that happens repeatedly (is recurrent) or has not been treated properly. It can occur in men of any age but is most common among middle-aged men whose prostate has begun to get larger. The symptoms are not as severe as symptoms caused by acute bacterial prostatitis. ? Prostatodynia or chronic pelvic pain syndrome (CPPS). This type is also called pelvic floor disorder. It is associated with increased muscular tone in the pelvis surrounding the prostate. What are the causes? Bacterial prostatitis is caused by infection from bacteria. Chronic nonbacterial prostatitis may be caused by: ? Urinary tract infections (UTIs). ? Nerve damage. ? A response by the body?s disease-fighting system (autoimmune response). ? Chemicals in the urine. The causes of the other types of prostatitis are usually not known. What are the signs or symptoms? Symptoms of this condition vary depending upon the type of prostatitis. If you have acute bacterial prostatitis, you may experience: ? Urinary symptoms, such as: ? Painful urination. ? Burning during urination. ? Frequent and sudden urges to urinate. ? Inability to start urinating. ? A weak or interrupted stream of urine. ? Vomiting. ? Nausea. ? Fever. ? Chills. ? Inability to empty the bladder completely. ? Pain in the: ? Muscles or joints. ? Lower back. ? Lower abdomen. If you have any of the other types of prostatitis, you may experience: ? Urinary symptoms, such as: ? Sudden urges to urinate. ? Frequent urination. ? Difficulty starting urination. ? Weak urine stream. ? Dribbling after urination. ? Discharge from the urethra. The urethra is a tube that opens at the end of the penis. ? Pain in the: ? Testicles. ? Penis or tip of the penis. ? Rectum. ? Area in front of the rectum and below the scrotum (perineum). ? Problems with sexual function. ? Painful ejaculation. ? Bloody semen. How is this diagnosed? This condition may be diagnosed based on: ? A physical and medical exam. ? Your symptoms. ? A urine test to check for bacteria. ? An exam in which a health care provider uses a finger to feel the prostate (digital rectal exam). ? A test of a sample of semen. ? Blood tests. ? Ultrasound. ? Removal of prostate tissue to be examined under a microscope (biopsy). ? Tests to check how your body handles urine (urodynamic tests). ? A test to look inside your bladder or urethra (cystoscopy). How is this treated? Treatment for this condition depends on the type of prostatitis. Treatment may involve: ? Medicines to relieve pain or inflammation. ? Medicines to help relax your muscles. ? Physical therapy. ? Heat therapy. ? Techniques to help you control certain body functions (biofeedback). ? Relaxation exercises. ? Antibiotic medicine, if your condition is caused by bacteria. ? Warm water baths (sitz baths). Sitz baths help with relaxing your pelvic floor muscles, which helps to relieve pressure on the prostate. Follow these instructions at home: ? Take gpao-wsy-ejbwlrf and prescription medicines only as told by your health care provider. ? If you were prescribed an antibiotic, take it as told by your health care provider. Do not stop taking the antibiotic even if you start to feel better. ? If physical therapy, biofeedback, or relaxation exercises were prescribed, do exercises as instructed. ? Take sitz baths as directed by your health care provider. For a sitz bath, sit in warm water that is deep enough to cover your hips and buttocks. ? Keep all follow-up visits as told by your health care provider. This is important. Contact a health care provider if: ? Your symptoms get worse. ? You have a fever. Get help right away if: ? You have chills. ? You feel nauseous. ? You vomit. ? You feel light-headed or feel like you are going to faint. ? You are unable to urinate. ? You have blood or blood clots in your urine. This information is not intended to replace advice given to you by your health care provider. Make sure you discuss any questions you have with your health care provider. Document Released: 02/19/2001 Document Revised: 05/07/2018 Docum (more content not included)... Normal [facility] URINALYSISOrdered By: Kirstie sanchez on 04-15-2022 Bacteria LM Ql (Urine sed) Trace /HPF Normal Trace/HPF [facility] UA Auto SS Bilirubin Ql (U) Negative (04/15/22 12:14 PM) Normal Negative [facility] UA Auto SS Calcium oxalate crystals LM Ql (Urine sed) Present (04/15/22 12:14 PM) Normal [facility] UA Auto SS Clarity (U) Clear (04/15/22 12:14 PM) Normal Clear [facility] UA Auto SS Color (U) Yellow (04/15/22 12:14 PM) Normal Yellow [facility] UA Auto SS Epithelial cells.squamous LM.HPF (Urine sed) [#/Area] 0-2 /HPF Normal 0-2/HPF [facility] UA Auto SS Glucose Test strip (U) [Mass/Vol] Negative (04/15/22 12:14 PM) Normal Negative [facility] UA Auto SS Hemoglobin Ql (U) 3+ *ABN* (04/15/22 12:14 PM) Invalid Interpretation Code Negative [facility] UA Auto SS Ketones (U) [Mass/Vol] Trace *ABN* (04/15/22 12:14 PM) Invalid Interpretation Code Negative [facility] UA Auto SS Zimmerman.plasma/Zimmerman .RBC (Bld) [Mass ratio] 21-30 /HPF Invalid Interpretation Code 0-3/HPF [facility] UA Auto SS Mucus Ql (Urine sed) Trace (04/15/22 12:14 PM) Normal [facility] UA Auto SS Nitrite Ql (U) Negative (04/15/22 12:14 PM) Normal Negative [facility] UA Auto SS pH (U) 6.0 *NA* (04/15/22 12:14 PM) Invalid Interpretation Code 5.0 - 9.0 [facility] UA Auto SS Protein (U) [Mass/Vol] Negative (04/15/22 12:14 PM) Normal Negative [facility] UA Auto SS Specific gravity (U) [Rel density] >=1.030 *NA* (04/15/22 12:14 PM) Invalid Interpretation Code 1.005 - 1.030 [facility] UA Auto SS UA Spec Desc Random Urine (04/15/22 12:14 PM) Normal [facility] UA Auto SS Urobilinogen Qn (U) 0.7288547 {Nikki'U}/dL Normal 0.0 - 1.0 EU/dL [facility] UA Auto SS WBC Auto Ql (U) 1+ *ABN* (04/15/22 12:14 PM) Invalid Interpretation Code Negative [facility] UA Auto SS WBC LM.HPF (Urine sed) [#/Area] 0-5 /HPF Normal 0-5/HPF [facility] UA Auto SS Urinalysison 04-15-2022 Bacteria LM Ql (Urine sed) TRACE Normal Trace [facility] Comment on above: Performed By: #### 1 [id number] ####[facility] [address] [place] [address] Bilirubin Ql (U) Negative Normal Negative [facility] Comment on above: Performed By: #### 1 [id number] ####[facility] [address] [place] [address] Calcium oxalate crystals LM Ql (Urine sed) Present Normal [facility] Comment on above: Performed By: #### 1 [id number] ####[facility] [address] [place] [address] Clarity (U) CLEAR Normal Clear [facility] Comment on above: Performed By: #### 1 [id number] ####[address] [address] Color (U) YELLOW Normal Yellow [facility] Comment on above: Performed By: #### 1 [id number] ####[address] [address] Epithelial cells.squamous LM.HPF (Urine sed) [#/Area] 0-2 Normal 0-2 [facility] Comment on above: Performed By: #### 1 [id number] ####[facility] [address] [place] [address] Glucose Test strip (U) [Mass/Vol] Negative Normal Negative [facility] Comment on above: Performed By: #### 1 [id number] ####[facility] [address] [place] [address] Hemoglobin Ql (U) 3+ Abnormal Negative [facility] Comment on above: Performed By: #### 1 [id number] ####[address] [address] Ketones (U) [Mass/Vol] TRACE Abnormal Negative [facility] Comment on above: Performed By: #### 1 [id number] ####[facility] [address] [place] [address] Zimmerman.plasma/Zimmerman .RBC (Bld) [Mass ratio] 21-30 Abnormal 0-3 [facility] Comment on above: Performed By: #### 1 [id number] ####[facility] [address] [place] [address] Mucus Ql (Urine sed) TRACE Normal [facility] Comment on above: Performed By: #### 1 [id number] ####[address] [address] Nitrite Ql (U) Negative Normal Negative [facility] Comment on above: Performed By: #### 1 [id number] ####[address] [address] pH (U) 6.0 [pH] Invalid Interpretation Code 5.0-9.0 [facility] Comment on above: Performed By: #### 1 [id number] ####[address] [address] Protein (U) [Mass/Vol] Negative Normal Negative [facility] Comment on above: Performed By: #### 1 [id number] ####[address] [address] Specific gravity (U) [Rel density] >=1.030 Invalid Interpretation Code 1.005-1.030 [facility] Comment on above: Performed By: #### 1 [id number] ####[address] [address] Type of Urine collection method Random Urine Normal [facility] Comment on above: Performed By: #### 1 [id number] ####[address] [address] Urobilinogen Qn (U) 0.2 {Nikki'U}/dL Normal 0.0-1.0 [facility] Comment on above: Performed By: #### 1 [id number] ####[address] [address] WBC Auto Ql (U) 1+ Abnormal Negative [facility] Comment on above: Performed By: #### 1 [id number] ####[facility] [address] [place] [address] WBC LM.HPF (Urine sed) [#/Area] 0-5 Normal 0-5 [facility] Comment on above: Performed By: #### 1 [id number] ####[facility] [address] [place] [address] Urology Office/Clinic Noteon 04-15-2022 Urology Office/Clinic Note Chief Complaint 6wk f/u HPI Staff Pt here today for follow up to penile rash. Last seen in our office 02/25/22 by ISABELLE. Additional DX: Prostatitis & Microscopic Hematuria. *No Urology Medications. Prior microscopic hematuria work-up negative by Dr. Jerome. s/p Cysto/ BL RG done 10/2019 Prostatitis has been ongoing since February (KML Tx'd w/Bactrim therapy at that time) Pt states rash has completely cleared up. Denies irritation. Head of penis is not red, but is discolored. Not bothersome. Denies pain/burning and blood in urine. Has been getting up 4x/night to void, for years. (Did try Doxazosin in the past with no relief) Gets gas when urinating. If he has gas, then he will leak. Still taking Fiber Supplement. IPSS 14 EDGAR 1 History of Present Illness Tests reviewed: reviewed UA. I have reviewed the previous health record information and history for this patient from Dr. Hassan. I have reviewed and verified the staff HPI to be accurate for this encounter. There have been no associated fever, chills, flank pain, or blood in the urine. Denies any urinary infections since last encounter. Review of Systems PHQ Score Initial Depression Screen Score: 0 ROS - Provider Constitutional: denies weight loss, denies hot flashes. Eyes: denies eye problems. Gastrointestinal: denies nausea, denies vomiting. Cardiovascular: denies chest pain or angina. Integumentary: no dryness Musculoskeletal: denies musculoskeletal symptoms. ENMT: denies otolaryngeal symptoms. Respiratory: no shortness of breath. Heme/Lymph: denies easy bleeding tendency, denies easy bruising tendency. Psychiatric: no confusion, no anxiety. Genitourinary: See HPI. Physical Exam Vitals & Measurements HR: 68(Peripheral) RR: 16 BP: 122/78 HT: 67 in HT: 169 cm WT: 71 kg WT: 156.2 lb BMI: 24.86 General Appearance: alert, no distress, well nourished, well developed male. Genitourinary: normal scrotum, normal testes, normal meatus, normal epididymis, normal vas deferens/spermatic cord. Penile skin/glans well healed, skin discoloration without erythema, tenderness or discharge Flank Pain: none. Bladder: nonpalpable. Assessment/Plan EDGAR 1 (1). 1. Penile rash (R21: Rash and other nonspecific skin eruption) Pt states rash has completely cleared up after stopping Bactrim. Denies irritation. Head of penis is not red, but is discolored. Not bothersome. D/c use of cream. 2. Prostatitis (N41.9: Inflammatory disease of prostate, unspecified) Prostatitis has been ongoing since February. KML tx'd w/Bactrim therapy at that time. Pt stopped after several days due to severe diarrhea and the above rash. No bothersome daytime sx. Can reassess at next visit. Declined alternative abx or treatment at this time 3. Microhematuria (R31.29: Other microscopic hematuria) Prior microscopic hematuria work-up negative by Dr. Jerome. S/p cysto/BL RG done 10/2019. Urine cx done 02/18/22 was neg. Micro UA done 02/18/ showed 4-20 RBCs. UA today shows large blood. Denies pain/burning and blood in urine. Has hives with con even with Benadryl or steroids prior. Does have hx of stones, has been having back pain. Will proceed with CT scan without con first, if neg for stones, would ideally proceed with cysto and BL RG due to hives even with allergy prep. Pt having scan done at [facility] in May for aneurysm, will give pt order to have done at the same time as the other scan. -send urine for microscopy -CT AP wo contrast 4. BPH with obstruction/lower urinary tract symptoms (N40.1: Benign prostatic hyperplasia with lower urinary tract symptoms) PSA: 02/10/19 - 0.13 09/09/20 - <0.05 02/10/22 - <0.13 IPSS 14 (19). UA today negative for blood and infection. Pt not taking any BPH or bladder meds at this time. Has been getting up 4x/night to void, for years. Did try Doxazosin in the past with no relief. CC: passes gas per rectum when urinating. If he has gas, then he will leak. Still taking fiber supplement, but only 1/2 bottle water per day. Feels he empties completely. Pt not interested in procedures or medications management for his urinary habits at this time. Follow up in [address] or sooner if needed. Pt understands and agrees with plan. -bowel regimen, increased water, fiber, stool softener if needed, prune juice -limit fluids before bed -monitor and record bothersome sxs 5. History of kidney stones (Z87.442: Personal history of urinary calculi) Pt has been having back pain. -CT AP wo con Follow-up With When Contact Information Ivelisse Hassan MD, URL, URO Additional Instructions: f/u 3 mos Patient Education Prostatitis I, Kyra Lombardi, personally scribed for Dr. Hassan on 04/15/2022 10:12:58. . Documentation recorded by the scribe, Kyra Lombardi, accurately reflects the services(s) I performed and decisions made by me. Authenticated by Dr. Hassan on 04/15/2022 17:42:02. Problem List/Past Medical Histo (more content not included)... Normal [facility] Comment on above: Result Comment: Elec tronically Signed By: Ivelisse Hassan MD\.br\Date and Time Signed: 04/15/22 17:42 EST\.br\Electronically Co-Signed By: Kyra Lombardi\.br\Date and Time Co-Signed: 04/15/22 10:13 EST URINALYSISOrdered By: Jeremy Porter on 02-11-2022 Bacteria LM Ql (Urine sed) Trace /HPF Normal Trace/HPF [facility] UA Auto SS Bilirubin Ql (U) Negative (02/11/22 10:38 AM) Normal Negative [facility] UA Auto SS Calcium oxalate crystals LM Ql (Urine sed) Present (02/11/22 10:38 AM) Normal [facility] UA Auto SS Clarity (U) Clear (02/11/22 10:38 AM) Normal Clear [facility] UA Auto SS Color (U) Yellow (02/11/22 10:38 AM) Normal Yellow [facility] UA Auto SS Epithelial cells.squamous LM.HPF (Urine sed) [#/Area] 0-2 /HPF Normal 0-2/HPF [facility] UA Auto SS Glucose Test strip (U) [Mass/Vol] Negative (02/11/22 10:38 AM) Normal Negative [facility] UA Auto SS Hemoglobin Ql (U) 3+ *ABN* (02/11/22 10:38 AM) Invalid Interpretation Code Negative [facility] UA Auto SS Ketones (U) [Mass/Vol] Trace *NA* (02/11/22 10:38 AM) Invalid Interpretation Code Negative [facility] UA Auto SS Zimmerman.plasma/Zimmerman .RBC (Bld) [Mass ratio] 4-20 /HPF Normal 0-3/HPF [facility] UA Auto SS Nitrite Ql (U) Negative (02/11/22 10:38 AM) Normal Negative [facility] UA Auto SS pH (U) 5.5 *NA* (02/11/22 10:38 AM) Invalid Interpretation Code 5.0 - 9.0 [facility] UA Auto SS Protein (U) [Mass/Vol] Negative (02/11/22 10:38 AM) Normal Negative [facility] UA Auto SS Specific gravity (U) [Rel density] 1.020 *NA* (02/11/22 10:38 AM) Invalid Interpretation Code 1.005 - 1.030 [facility] UA Auto SS UA Spec Desc Random Urine (02/11/22 10:38 AM) Normal [facility] UA Auto SS Urobilinogen Qn (U) 0.8869155 {Nikki'U}/dL Normal 0.0 - 1.0 EU/dL [facility] UA Auto SS WBC Auto Ql (U) 1+ *ABN* (02/11/22 10:38 AM) Invalid Interpretation Code Negative [facility] UA Auto SS WBC LM.HPF (Urine sed) [#/Area] 0-5 /HPF Normal 0-5/HPF [facility] UA Auto SS Basic Metabolic Panelon 12-0 Anion gap [Moles/Vol] 10.4 mmol/L Normal 6.0-15.0 [facility] Comment on above: Performed By: #### C BC, BMP #### [facility] [address] Calcium [Mass/Vol] 8.4 mg/dL Normal 8.2-10.2 [facility] Comment on above: Performed By: #### C BC, BMP #### [facility] [address] Chloride [Moles/Vol] 101 mmol/L Normal 95-114 [facility] Comment on above: Performed By: #### C BC, BMP #### [facility] [address] CO2 [Moles/Vol] 28.2 mmol/L Normal 22.0-30.0 [facility] Comment on above: Performed By: #### C BC, BMP #### [address] Creatinine [Mass/Vol] 0.94 mg/dL Normal 0.64-1.27 [facility] Comment on above: Performed By: #### C BC, BMP #### [place] [address] [place] Creatinine Clr Calc Pharmacy 57.50 [facility] Comment on above: Result Comment: PERF ORMED BY: [place] [address] PATHOLOGIST MANAGER [employer] ZENA CASTELLON M.D. Performed By: #### C BC, BMP #### [address] Estimated GFR ( Jojo > 60 [facility] Comment on above: Result Comment: GFR estimated reference range: According to KDOQI guidelines, <60 ml/min/1.73m2 is sufficient to diagnose a patient with chronic kidney disease. Performed By: #### C BC, BMP #### [place] [address] [place] Estimated GFR (Non- Am > 60 [facility] Comment on above: Performed By: #### C BC, BMP #### [place] [address] [place] Glucose [Mass/Vol] 109 mg/dL High 70-100 [facility] Comment on above: Result Comment: [facility] Glucose Reference Range is dependent on time and content of last meal. Glucose of more than 200 mg/dL in a nonstressed, ambulatory subject supports the diagnosis of Diabetes Mellitus. ADA recommended reference range Performed By: #### C BC, BMP #### [facility] [address] Potassium [Moles/Vol] 4.6 mmol/L Normal 3.5-5.1 [facility] Comment on above: Performed By: #### C BC, BMP #### [facility] [address] Sodium [Moles/Vol] 135 mmol/L Low 136-146 [facility] Comment on above: Performed By: #### C BC, BMP #### [facility] [address] Urea nitrogen [Mass/Vol] 11 mg/dL Normal 9-23 [facility] Comment on above: Performed By: #### C BC, BMP #### [facility] [address] [place] [address] [place] Basophils Auto (Bld) [#/Vol] Ordered By: Raul Quan on 02-05-2022 Basophils (Bld) [#/Vol] 0.1 10*3/uL 0.0-0.2 [facility] Basophils/100 WBC Auto (Bld) Ordered By: Raul Quan on 02-05-2022 Basophils/100 WBC (Bld) 0.6 % . [facility] Complete Blood Count Auto Di ffon 02-05-2022 Basophils (Bld) [#/Vol] 0.1 10*3/uL Normal 0.0-0.2 [facility] Comment on above: Result Comment: PERF ORMED BY: [place] [address] PATHOLOGIST MANAGER [employer] EZNA CASTELLON M.D. Performed By: #### C BC, BMP #### [facility] [address] [place] [address] Basophils/100 WBC (Bld) 0.6 % Normal . [facility] Comment on above: Performed By: #### C BC, BMP #### [address] Eosinophils (Bld) [#/Vol] 0.1 10*3/uL Normal 0.0-0.45 [facility] Comment on above: Performed By: #### C BC, BMP #### [address] Eosinophils/100 WBC (Bld) 0.7 % Normal . [facility] Comment on above: Performed By: #### C BC, BMP #### [address] Erythrocyte distribution width (RBC) [Ratio] 13.8 % Normal 12.0-14.8 [facility] Comment on above: Performed By: #### C BC, BMP #### [address] Hematocrit (Bld) [Volume fraction] 34.6 % Low 38.8-50.0 [facility] Comment on above: Performed By: #### C BC, BMP #### [address] Hemoglobin (Bld) [Mass/Vol] 11.4 g/dL Low 13.0-17.0 [facility] Comment on above: Performed By: #### C BC, BMP #### [address] Lymphocytes (Bld) [#/Vol] 1.5 10*3/uL Normal 1.00-4.8 [facility] Comment on above: Performed By: #### C BC, BMP #### [address] Lymphocytes/100 WBC (Bld) 14.4 % Normal . [facility] Comment on above: Performed By: #### C BC, BMP #### [address] MCH (RBC) [Entitic mass] 30.1 pg Normal 27.5-35.2 [facility] Comment on above: Performed By: #### C BC, BMP #### [address] MCV (RBC) [Entitic vol] 91.6 fL Normal 83.5-101 [facility] Comment on above: Performed By: #### C BC, BMP #### [address] Mean Corpuscular HGB Conc 32.9 g/dL Normal 32.5-35.6 [facility] Comment on above: Performed By: #### C BC, BMP #### [address] Monocytes (Bld) [#/Vol] 1.5 10*3/uL High 0.0-0.8 [facility] Comment on above: Performed By: #### C BC, BMP #### [address] Monocytes/100 WBC (Bld) 14.8 % Normal . [facility] Comment on above: Performed By: #### C BC, BMP #### [address] Neutrophils (Bld) [#/Vol] 7.1 10*3/uL Normal 1.8-7.7 [facility] Comment on above: Performed By: #### C BC, BMP #### [place] [address] [place] Neutrophils/100 WBC (Bld) 69.5 % Normal . [facility] Comment on above: Performed By: #### C BC, BMP #### [address] NRBC% 0.1 /100{WBC} Normal 0-0.5 [facility] Comment on above: Performed By: #### C BC, BMP #### [address] Platelet mean volume (Bld) [Entitic vol] 7.9 fL Normal 6.6-10.1 [facility] Comment on above: Performed By: #### C BC, BMP #### [facility] [address] [place] [address] [place] Platelets (Bld) [#/Vol] 142 10*3/uL Significant change down 150-450 [facility] Comment on above: Performed By: #### C BC, BMP #### [facility] [address] RBC (Bld) [#/Vol] 3.77 10*6/uL Low 3.90-5.60 [facility] Comment on above: Performed By: #### C BC, BMP #### [facility] [address] WBC (Bld) [#/Vol] 10.3 10*3/uL Normal 4.1-10.5 [facility] Comment on above: Performed By: #### C BC, BMP #### [facility] [address] Creatinine and Glomerular fi ltration rate.predicted panel (S/P/Bld)Ordered By: Raul Quan on 02-05-2022 Creatinine [Mass/Vol] 0.94 mg/dL 0.64-1.27 [facility] Eosinophils Auto (Bld) [#/Vo l]Ordered By: Raul Quan on 02-05-2022 Eosinophils (Bld) [#/Vol] 0.1 10*3/uL 0.0-0.45 [facility] Eosinophils/100 WBC Auto (Bl d)Ordered By: Raul Quan on 02-05-2022 Eosinophils/100 WBC (Bld) 0.7 % . [facility] Erythrocyte distribution wid th Auto (RBC) [Ratio]Ordered By: Raul Quan on 02-05-2022 Erythrocyte distribution width (RBC) [Ratio] 13.8 % 12.0-14.8 [facility] Estimated glomerular filtrat ion rate (GFR) non- AmericanOrdered By: Raul Quan on 02-05-2022 GFR/1.73 sq M.predicted among non-blacks MDRD (S/P/Bld) [Vol rate/Area] > 60 mL/Min [facility] Hematocrit Auto (Bld) [Volum e fraction]Ordered By: Raul Quan on 02-05-2022 Hematocrit (Bld) [Volume fraction] 34.6 % 38.8-50.0 [facility] Hemoglobin [Mass/volume] in BloodOrdered By: Raul Quan on 02-05-2022 Hemoglobin (Bld) [Mass/Vol] 11.4 g/dL 13.0-17.0 [facility] Leukocytes [#/volume] correc shyann for nucleated erythrocytes in Blood by Automated counOrdered By: Raul Quan on 02-05-2022 WBC corrected for nucl RBC Auto (Bld) [#/Vol] 10.3 10*3/uL 4.1-10.5 [facility] Lymphocytes Auto (Bld) [#/Vo l]Ordered By: Raul Quan on 02-05-2022 Lymphocytes (Bld) [#/Vol] 1.5 10*3/uL 1.00-4.8 [facility] Lymphocytes/100 WBC Auto (Bl d)Ordered By: Raul Quan on 02-05-2022 Lymphocytes/100 WBC (Bld) 14.4 % . [facility] MCH Auto (RBC) [Entitic mass ]Ordered By: Raul Quan on 02-05-2022 MCH (RBC) [Entitic mass] 30.1 pg 27.5-35.2 [facility] MCHC Auto (RBC) [Mass/Vol]Or dered By: Raul Quan on 02-05-2022 MCHC (RBC) [Mass/Vol] 32.9 g/dL 32.5-35.6 [facility] MCV Auto (RBC) [Entitic vol] Ordered By: Raul Quan on 02-05-2022 MCV (RBC) [Entitic vol] 91.6 fL 83.5-101 [facility] Monocytes Auto (Bld) [#/Vol] Ordered By: Raul Quan on 02-05-2022 Monocytes (Bld) [#/Vol] 1.5 10*3/uL 0.0-0.8 [facility] Monocytes/100 WBC Auto (Bld) Ordered By: Raul Quan on 02-05-2022 Monocytes/100 WBC (Bld) 14.8 % . [facility] Neutrophils Auto (Bld) [#/Vo l]Ordered By: Raul Quan on 02-05-2022 Neutrophils (Bld) [#/Vol] 7.1 10*3/uL 1.8-7.7 [facility] Neutrophils/100 WBC Auto (Bl d)Ordered By: Raul Quan on 02-05-2022 Neutrophils/100 WBC (Bld) 69.5 % . [facility] No Panel InformationOrdered By: Raul Quan on 02-05-2022 Estimated GFR () > 60 mL/Min [facility] Comment on above: GFR estimated refere nce range: According to KDOQI guidelines, <60 ml/min/1.73m2 is sufficient to diagnose a patient with chronic kidney disease. Pharmacy Creatinine Clearance (Chem 57.50 [facility] Nucleated erythrocytes [Pres ence] in Blood by Automated countOrdered By: Raul Quan on 02-05-2022 Nucleated RBC Auto Ql (Bld) 0.1 /100{WBC} 0-0.5 [facility] Platelet mean volume Auto (B ld) [Entitic vol]Ordered By: Raul Quan on 02-05-2022 Platelet mean volume (Bld) [Entitic vol] 7.9 fL 6.6-10.1 [facility] Platelets Auto (Bld) [#/Vol] Ordered By: Raul Quan on 02-05-2022 Platelets (Bld) [#/Vol] 142 10*3/uL 150-450 [facility] Comment on above: Delta: 198 on -824 RBC Auto (Bld) [#/Vol]Ordere d By: Raul Quan on 02-05-2022 RBC (Bld) [#/Vol] 3.77 10*6/uL 3.90-5.60 [facility] Serum or plasma anion gap de terminationOrdered By: Raul Quan on 02-05-2022 Anion gap [Moles/Vol] 10.4 mmol/L 6.0-15.0 [facility] Serum or plasma calcium richy urement (mass/volume)Ordered By: Raul Quan on 02-05-2022 Calcium [Mass/Vol] 8.4 mg/dL 8.2-10.2 [facility] Serum or plasma chloride young surement (moles/volume)Ordered By: Raul Quan on 02-05-2022 Chloride [Moles/Vol] 101 mmol/L 95-114 [facility] Serum or plasma glucose richy urement (mass/volume)Ordered By: Raul Quan on 02-05-2022 Glucose [Mass/Vol] 109 mg/dL 70-100 [facility] Comment on above: ADA recommended refe rence rangeRandom Glucose Reference Range is dependent on time and content of last meal. Glucose of more than 200 mg/dL in a nonstressed, ambulatory subject supports the diagnosis of Diabetes Mellitus. Serum or plasma potassium me asurement (moles/volume)Ordered By: Raul Quan on 02-05-2022 Potassium [Moles/Vol] 4.6 mmol/L 3.5-5.1 [facility] Serum or plasma sodium measu rement (moles/volume)Ordered By: Raul Quan on 02-05-2022 Sodium [Moles/Vol] 135 mmol/L 136-146 [facility] Serum or plasma total carbon dioxide measurement (moles/volume)Ordered By: Raul Quan on 02-05-2022 CO2 [Moles/Vol] 28.2 mmol/L 22.0-30.0 [facility] Serum or plasma urea nitroge n measurement (mass/volume)Ordered By: Raul Quan on 02-05-2022 Urea nitrogen [Mass/Vol] 11 mg/dL 9-23 [facility] WBC Auto (Bld) [#/Vol]Ordere d By: Raul Quan on 02-05-2022 WBC (Bld) [#/Vol] 10.3 10*3/uL 4.1-10.5 [facility] Antibody Identificationon Antibody Identification COLD Normal [facility] Basic Metabolic Panelon 01-08 Anion gap [Moles/Vol] 13.9 mmol/L Normal 6.0-15.0 [facility] Comment on above: Performed By: #### C BC, BMP #### [facility] [address] [place] [address] [place] Calcium [Mass/Vol] 9.0 mg/dL Normal 8.2-10.2 [facility] Comment on above: Performed By: #### C BC, BMP #### [facility] [address] [place] [address] [place] Chloride [Moles/Vol] 101 mmol/L Normal 95-114 [facility] Comment on above: Performed By: #### C BC, BMP #### [facility] [address] [place] [address] [place] CO2 [Moles/Vol] 24.4 mmol/L Normal 22.0-30.0 [facility] Comment on above: Performed By: #### C BC, BMP #### [facility] [address] [place] [address] [place] Creatinine [Mass/Vol] 0.81 mg/dL Normal 0.64-1.27 [facility] Comment on above: Performed By: #### C BC, BMP #### [facility] [address] [place] [address] [place] Creatinine Clr Calc Pharmacy 66.73 [facility] Comment on above: Result Comment: PERF ORMED BY: [place] [address] PATHOLOGIST MANAGER [employer] ZENA CASTELLON M.D. Performed By: #### C BC, BMP #### [facility] [address] Estimated GFR ( Jojo > 60 [facility] Comment on above: Result Comment: GFR estimated reference range: According to KDOQI guidelines, <60 ml/min/1.73m2 is sufficient to diagnose a patient with chronic kidney disease. Performed By: #### C BC, BMP #### [facility] [address] Estimated GFR (Non- Am > 60 Normal [facility] Comment on above: Performed By: #### C BC, BMP #### [facility] [address] Glucose [Mass/Vol] 124 mg/dL High 70-100 [facility] Comment on above: Result Comment: [facility] Glucose Reference Range is dependent on time and content of last meal. Glucose of more than 200 mg/dL in a nonstressed, ambulatory subject supports the diagnosis of Diabetes Mellitus. ADA recommended reference range Performed By: #### C BC, BMP #### [facility] [address] Potassium [Moles/Vol] 4.3 mmol/L Normal 3.5-5.1 [facility] Comment on above: Performed By: #### C BC, BMP #### [address] Sodium [Moles/Vol] 135 mmol/L Low 136-146 [facility] Comment on above: Performed By: #### C SEAN, BMP #### [address] Urea nitrogen [Mass/Vol] 14 mg/dL Normal 9-23 [facility] Comment on above: Performed By: #### C BC, BMP #### [address] Blood Bank Pathologist Manny oneill 02-04-2022 Blood Bank Pathologist Review Sent to Pathology Normal [facility] Comment on above: Result Comment: PERF ORMED BY: [place] [address] PATHOLOGIST MANAGER [employer] ZENA CASTELLON M.D. Complete Blood Count Auto Di ffon 02-04-2022 Basophils (Bld) [#/Vol] 0.1 10*3/uL Normal 0.0-0.2 [facility] Comment on above: Result Comment: PERF ORMED BY: [address] [place] [address] PATHOLOGIST MANAGER [employer] ZENA CASTELLON M.D. Performed By: #### C BC #### [address] Basophils/100 WBC (Bld) 0.6 % Normal . [facility] Comment on above: Performed By: #### C BC #### [address] Eosinophils (Bld) [#/Vol] 0.1 10*3/uL Normal 0.0-0.45 [facility] Comment on above: Performed By: #### C BC #### [address] Eosinophils/100 WBC (Bld) 0.9 % Normal . [facility] Comment on above: Performed By: #### C BC #### [address] Erythrocyte distribution width (RBC) [Ratio] 13.7 % Normal 12.0-14.8 [facility] Comment on above: Performed By: #### C BC #### [address] Hematocrit (Bld) [Volume fraction] 37.5 % Low 38.8-50.0 [facility] Comment on above: Performed By: #### C BC #### [address] Hemoglobin (Bld) [Mass/Vol] 12.4 g/dL Low 13.0-17.0 [facility] Comment on above: Performed By: #### C BC #### [place] [address] [place] Lymphocytes (Bld) [#/Vol] 1.5 10*3/uL Normal 1.00-4.8 [facility] Comment on above: Performed By: #### C BC #### [address] Lymphocytes/100 WBC (Bld) 16.4 % Normal . [facility] Comment on above: Performed By: #### C BC #### [facility] [address] MCH (RBC) [Entitic mass] 30.2 pg Normal 27.5-35.2 [facility] Comment on above: Performed By: #### C BC #### [address] MCV (RBC) [Entitic vol] 91.5 fL Normal 83.5-101 [facility] Comment on above: Performed By: #### C BC #### [address] Mean Corpuscular HGB Conc 33.0 g/dL Normal 32.5-35.6 [facility] Comment on above: Performed By: #### C BC #### [address] Monocytes (Bld) [#/Vol] 1.1 10*3/uL High 0.0-0.8 [facility] Comment on above: Performed By: #### C BC #### [address] Monocytes/100 WBC (Bld) 12.0 % Normal . [facility] Comment on above: Performed By: #### C BC #### [address] Neutrophils (Bld) [#/Vol] 6.5 10*3/uL Normal 1.8-7.7 [facility] Comment on above: Performed By: #### C BC #### [address] Neutrophils/100 WBC (Bld) 70.1 % Normal . [facility] Comment on above: Performed By: #### C BC #### [address] NRBC% 0.0 /100{WBC} Normal 0-0.5 [facility] Comment on above: Performed By: #### C BC #### [address] Platelet mean volume (Bld) [Entitic vol] 8.5 fL Normal 6.6-10.1 [facility] Comment on above: Performed By: #### C BC #### [address] Platelets (Bld) [#/Vol] 198 10*3/uL Normal 150-450 [facility] Comment on above: Performed By: #### C BC #### [address] RBC (Bld) [#/Vol] 4.10 10*6/uL Normal 3.90-5.60 [facility] Comment on above: Performed By: #### C BC #### [address] WBC (Bld) [#/Vol] 9.3 10*3/uL Normal 4.1-10.5 [facility] Comment on above: Performed By: #### C BC #### [address] Direct [place] 02-04-2022 Polyspecific AHG Negative Normal [facility] [place] 02-04-2022 L ------ Specimen: [id number] Received: 02/04/22 Status: VIBHAHeike Henley Num: [id number] Spec Type: Impression Subm Dr: Rocio Mac DO Tissues: PATHDEVINK Procedures: PATHREVIEW Age/ Patient Sex Location Account Attending Physician Chico Baker 81/M 4N [id number] Raul Quan MD SPEC NUM: [id number] RECD: 02/04/22 STATUS: JUSTINA HENLEY NUM: [id number] SHYANN: 02/04/22 DR: Rocio Mac DO ENTERED: 02/04/[address]: LUMA TYPE: Impression DEPT: DC ORDERED: PATHREVIEW ORDERED: PATHREVIEW Blood Bank Results Date Time Test Result Flag (u) Normal Range 02/04/22824 Ab Screen POSITIVE AB ID 02/04/22824 Cold Ab Pathologist Review A cold antibody with no apparent specificity was detectable in the serum at 22C and colder. Due to the low temperature agglutination characteristics, these antibodies are considered clinically insignificant. Specimen: [id number] Received: 02/04/22 Status: JUSTINA Henley Num: [id number] Spec Type: Impression Subm Dr: Rocio Mac DO Tissues: PATHBBK Procedures: PATHREVIEW Patient: Chico Baker [id number] (Continued) Signed (signature on file) Judah Alvarado MD 02/04/22 2345 Normal [facility] Type and Screenon 02-04-2022 ABO and Rh group Nom (Bld) Blood group A Rh(D) positive Normal [facility] Comment on above: Result Comment: PERF ORMED BY: [facility] [address] [place] [address] PATHOLOGIST MANAGER [employer] ZENA CASTELLON M.D. Covid-19 PCR [facility]on 01-07 SARS-CoV-2 (COVID-19) RNA JESSIE+probe Ql (Unsp spec) Not detected Normal NOT DETECTED [facility] Comment on above: Result Comment: This test is not yet approved or cleared by the [place] FDA. When there are no FDA-approved or cleared tests available, and other criteria are met, FDA can make tests available under an emergency access mechanism called an Emergency Use Authorization (EUA). The EUA for this test is supported by the Agricultural Extension Officer of Health and Human Service's (HHS's) declaration that circumstances exist to justify the emergency use of in vitro diagnostics for the detection and/or diagnosis of the virus that causes COVID-19. This EUA will remain in effect (meaning this test can be used) for the duration of the COVID-19 declaration justifying emergency of IVDs, unless it is terminated or revoked by FDA (after which the test may no longer be used). When diagnostic testing is negative, the possibility of a false negative should be considered in the context of a patient's recent exposures and the presence of clinical signs and symptoms consistent with SARS-CoV-2. Performed By: #### C [facility] #### [facility] [address] [place] [address] Dr. Jodi Oglesby US carotid doppler BIon - US carotid doppler BI [facility] Main [place] [address] [place] [address] Ultrasound Report Signed Patient: Chico Baker MR#: [id number] 284 : 1940 Acct:[id number] Age/Sex: 81 / M ADM Date: 01/20/22 Loc: [facility] Room: Type: [facility] Attending Dr: Tamar Perea MARINA DRY DOCK MANAGERCherylC Ordering Provider: Tamar Perea APRN Date of Service: 01/20/22 US/US carotid doppler BI: I65.23 Copies to: Tamar Perea APRN CAROTID DUPLEX INDICATION: Known carotid occlusive disease PROCEDURE: Color-flow duplex scanning is used to interrogate the extracranial carotid arterial system, as well as both vertebral arteries. Both carotid bifurcations show mild to moderate heterogeneous plaque formation. The proximal right internal carotid artery shows a highest peak systolic velocity of 113 cm/s with an end-diastolic velocity of 34.8 cm/s . The mid internal carotid artery measures 127 cm/s peak systolic and 35 cm/s end diastolic. The distal segment measures 106 cm/s peak systolic with an end diastolic velocity of 24.5 cm/s . The velocities of the right common carotid artery are 76.4 cm/s peak systolic and 13 cm/s end-diastolic proximally and 78 cm/s peak systolic and 13.3 cm/s end diastolic distally. The peak systolic velocity ratio of the internal to the common carotid artery is 1.63. The right external carotid artery measures 140 cm/s peak systolic. The right vertebral artery is patent at 54.1 cm/s with antegrade flow. The proximal left internal carotid artery shows a highest peak systolic velocity of 321 cm/s with an end-diastolic velocity of 55.5 cm/s . The mid internal carotid artery measures 199 cm/s peak systolic and 48 cm/s end diastolic. The distal segment measures 66.3 cm/s peak systolic with an end diastolic velocity of 17.7 cm/s . The velocities of the left common carotid artery are 52.9 cm/s peak systolic and 12.9 cm/s end-diastolic proximally and 56.4 cm/s peak systolic and 13.3 cm/s end diastolic distally. The peak systolic velocity ratio of the internal to the common carotid artery is 5.69 . The left external carotid artery measures 134 cm/s peak systolic. The left vertebral artery is patent at 52.1 cm/s with antegrade flow. US/US carotid doppler BI IMPRESSION: Less than 50% stenosis of the right extracranial internal carotid artery. Greater than 70% stenosis of the left extracranial internal carotid artery. Impression dictated by: Raul Quan M.D.01/20/2022 11:32 AM Dictation Location: [facility] Tech: Aby Mueller Transcribed By: ALEX 01/20/221131 Dictated By: Raul Quan MD 01/20/221129 Signed By: 01/20/22 113 [facility] CBC AUTO DIFFon 12-08-2021 BASO # 0.1 103/ul Normal 0.0-0.1 [facility] Comment on above: Performed By: #### D ATA1C #### [facility] [address] [place] [address] Dr. Jodi Oglesby Basophils/100 WBC (Bld) 0.5 % Normal 0.2-2.0 [facility] [place] Comment on above: Performed By: #### D ATA1C #### [facility] [address] [address] [address] Jodi Oglesby EO # 0.1 103/ul Normal 0.0-0.7 [facility] Comment on above: Performed By: #### D ATA1C #### [facility] [address] [address] [address] Jodi Oglesby Eosinophils/100 WBC (Bld) 1.4 % Normal 0.9-7.0 [facility] Comment on above: Performed By: #### D ATA1C #### [facility] [address] [place] [address] Dr. Jodi Oglesby Erythrocyte distribution width (RBC) [Ratio] 13.0 % Normal 11.0-15.0 [facility] [place] Comment on above: Performed By: #### Chavez ATA1C #### [facility] [address] [place] [address] Dr. Jodi Oglesby Hematocrit (Bld) [Volume fraction] 36.1 % Critically low 42.0-54.0 [facility] [place] Comment on above: Performed By: #### D ATA1C #### [facility] [address] [place] [address] Dr. Jodi Oglesby Hemoglobin (Bld) [Mass/Vol] 11.2 g/dL Critically low 14.0-18.0 [facility] Comment on above: Performed By: #### D ATA1C #### [facility] [address] [place] [address] Dr. Jodi Oglesby IG # 0.04 10e3/ul Critically high 0.00-0.03 [facility] Comment on above: Performed By: #### D ATA1C #### [facility] [address] [place] [address] Dr. Jodi Oglesby IG % 0.4 % Normal 0.0-0.5 [facility] Comment on above: Performed By: #### D ATA1C #### [facility] [address] [address] [address] Jodi Oglesby LYMPH # 1.8 103/ul Normal 1.2-3.8 [facility] Comment on above: Performed By: #### D ATA1C #### [facility] [address] [place] [address] Dr. Jodi Oglesby Lymphocytes/100 WBC (Bld) 17.2 % Critically low 20.5-60.0 [facility] [place] Comment on above: Performed By: #### D ATA1C #### [facility] [address] [place] [address] Dr. Jodi Oglesby MANUAL DIFF REQ NO Normal [facility] [place] Comment on above: Performed By: #### D ATA1C #### [facility] [address] [place] [address] Dr. Jodi Oglesby MCH (RBC) [Entitic mass] 30.4 pg Normal 25.9-34.0 [facility] [place] Comment on above: Performed By: #### D ATA1C #### [facility] [address] [place] [address] Dr. Jodi Oglesby MCHC (RBC) [Mass/Vol] 31.0 g/dL Normal 29.9-35.2 [facility] Comment on above: Performed By: #### D ATA1C #### [facility] [address] [place] [address] Dr. Jodi Oglesby MCV (RBC) [Entitic vol] 98.1 fL Critically high 80.0-94.0 [facility] [place] Comment on above: Performed By: #### D ATA1C #### [facility] [address] [place] [address] Dr. Jodi Oglesby MONO # 1.0 103/ul Critically high 0.3-0.8 [facility] Comment on above: Performed By: #### D ATA1C #### [facility] [address] [place] [address] Dr. Jodi Oglesby Monocytes/100 WBC (Bld) 9.8 % Normal 1.7-12.0 [facility] [place] Comment on above: Performed By: #### D ATA1C #### [facility] [address] [address] [address] Jodi Oglesby NEUT # 7.3 103/ul Critically high 1.4-6.5 [facility] Comment on above: Performed By: #### D ATA1C #### [facility] [address] [address] [address] Jodi Oglesby Neutrophils/100 WBC (Bld) 70.7 % Normal 43.0-75.0 [facility] Comment on above: Performed By: #### D ATA1C #### [facility] [address] [place] [address] Dr. Jodi Oglesby Platelet mean volume (Bld) [Entitic vol] 9.1 fL Critically low 9.5-13.5 [facility] Comment on above: Performed By: #### D ATA1C #### [facility] [address] [place] [address] Dr. Jodi Oglesby PLT 214 103/ul Normal 150-450 [facility] Comment on above: Performed By: #### D ATA1C #### [facility] [address] [place] [address] Dr. Jodi Oglesby RBC 3.68 106/ul Critically low 4.70-6.10 [facility] Comment on above: Performed By: #### D ATA1C #### [facility] [address] [place] [address] Dr. Jodi Oglesby WBC 10.3 103/ul Normal 4.0-11.0 [facility] Comment on above: Performed By: #### D ATA1C #### [facility] [address] [place] [address] Dr. Jodi Oglesby PROF CHEM 8 (BAS METB)on Anion gap [Moles/Vol] 9.7 mmol/L Normal [facility] Comment on above: Performed By: #### C BC #### [facility] [address] [place] [address] Dr. Jodi Oglesby Calcium [Mass/Vol] 8.9 mg/dL Normal 8.5-10.1 [facility] Comment on above: Performed By: #### C BC #### [facility] [address] [address] [address] Jodi Oglesby Chloride [Moles/Vol] 102 mmol/L Normal 98-107 [facility] Comment on above: Performed By: #### C BC #### [facility] [address] [place] [address] Dr. Jodi Oglesby CO2 [Moles/Vol] 31.0 mmol/L Normal 21.0-32.0 [facility] Comment on above: Performed By: #### C BC #### [facility] [address] [place] [address] Dr. Jodi Oglesby Creatinine [Mass/Vol] 0.85 mg/dL Normal 0.70-1.30 [facility] Comment on above: Performed By: #### C BC #### [facility] [address] [place] [address] Dr. Jodi Oglesby EGFR-AF THAI >60 Normal >=60 [facility] Comment on above: Performed By: #### C BC #### [facility] [address] [place] [address] Dr. Jodi Oglesby EGFR-NON AF THAI >60 Normal >=60 [facility] Comment on above: Performed By: #### C BC #### [facility] [address] [place] [address] Dr. Jodi Oglesby Glucose [Mass/Vol] 106 mg/dL Normal 74-106 [facility] Comment on above: Performed By: #### C BC #### [facility] [address] [place] [address] Dr. Jodi Oglesby Potassium [Moles/Vol] 4.7 mmol/L Normal 3.5-5.1 [facility] Comment on above: Performed By: #### C BC #### [facility] [address] [place] [address] Dr. Jodi Oglesby Sodium [Moles/Vol] 138 mmol/L Normal 136-145 [facility] Comment on above: Performed By: #### C BC #### [facility] [address] [place] [address] Dr. Jodi Oglesby Urea nitrogen [Mass/Vol] 14.0 mg/dL Normal 7.0-18.0 [facility] [place] Comment on above: Performed By: #### C BC #### [facility] [address] [place], [place] [address] Dr. Jodi Oglesby Urea nitrogen/Creatinine [Mass ratio] 16.5 mg/mg Normal [facility] [place] Comment on above: Performed By: #### C BC #### [facility] [address] [place], [place] [address] Dr. Jodi Oglesby XR CHEST 2 Von 12-08-2021 XR CHEST 2 V EXAMINATION: XR CHES T 2 V HISTORY: Cough COMPARISON: No relevant comparison available. TECHNIQUE: PA and lateral FINDINGS: LUNGS: Scattered pulmonary nodules, size and density suggests calcified granulomas and/or pleural plaques VASCULATURE: No increased pulmonary vasculature. PLEURA: No pneumothorax, effusion, or pleural thickening. CARDIAC: No cardiomegaly or cardiac silhouette abnormality. MEDIASTINUM: No visible mass or adenopathy. Aortic atherosclerosis BONES: No fracture or visible bone lesion. OTHER: Negative. IMPRESSION: No acute disease. Electronically authenticated by: ROCIO RICARDO Date: 2021-12-08 16:20 Normal [facility] Covid-19 PCR ([facility])on 11-07 SARS-CoV-2 (COVID-19) RNA JESSIE+probe Ql (Unsp spec) Not detected Normal NOT DETECTED [facility] Comment on above: Result Comment: This test is not yet approved or cleared by the [place] FDA. When there are no FDA-approved or cleared tests available, and other criteria are met, FDA can make tests available under an emergency access mechanism called an Emergency Use Authorization (EUA). The EUA for this test is supported by the Century of Health and Human Service's (HHS's) declaration that circumstances exist to justify the emergency use of in vitro diagnostics for the detection and/or diagnosis of the virus that causes COVID-19. This EUA will remain in effect (meaning this test can be used) for the duration of the COVID-19 declaration justifying emergency of IVDs, unless it is terminated or revoked by FDA (after which the test may no longer be used). When diagnostic testing is negative, the possibility of a false negative should be considered in the context of a patient's recent exposures and the presence of clinical signs and symptoms consistent with SARS-CoV-2. Performed By: #### C VDTB #### [facility] [address] [place] [address] Dr. Jodi Oglesby CBC AUTO DIFFon 11-11-2021 BASO # 0.1 103/ul Normal 0.0-0.1 [facility] [place] Comment on above: Performed By: #### C BC #### [facility] [address] [place] [address] Dr. Jodi Oglesby Basophils/100 WBC (Bld) 0.5 % Normal 0.2-2.0 [facility] [place] Comment on above: Performed By: #### C BC #### [facility] [address] [place] [address] Dr. Jodi Oglesby EO # 0.2 103/ul Normal 0.0-0.7 [facility] [place] Comment on above: Performed By: #### C BC #### [facility] [address] [place] [address] Dr. Jodi Oglesby Eosinophils/100 WBC (Bld) 1.9 % Normal 0.9-7.0 [facility] [facility] [place] Comment on above: Performed By: #### C BC #### [facility] [address] [place] [address] Dr. Jodi Oglesby Erythrocyte distribution width (RBC) [Ratio] 13.6 % Normal 11.0-15.0 [facility] [place] Comment on above: Performed By: #### C BC #### [facility] [address] [place] [address] Dr. Jodi Oglesby Hematocrit (Bld) [Volume fraction] 28.6 % Critically low 42.0-54.0 [facility] [place] Comment on above: Performed By: #### C BC #### [facility] [address] [place] [address] Dr. Jodi Oglesby Hemoglobin (Bld) [Mass/Vol] 9.4 g/dL Critically low 14.0-18.0 [facility] [place] Comment on above: Performed By: #### C BC #### [facility] [address] [place] [address] Dr. Jodi Oglesby IG # 0.08 10e3/ul Critically high 0.00-0.03 [facility] [place] Comment on above: Performed By: #### C BC #### [facility] [address] [place] [address] Dr. Jodi Oglesby IG % 0.8 % Critically high 0.0-0.5 [facility] [place] Comment on above: Performed By: #### C BC #### [facility] [address] [place] [address] Dr. Jodi Oglesby LYMPH # 1.3 103/ul Normal 1.2-3.8 [facility] [place] Comment on above: Performed By: #### C BC #### [facility] [address] [place] [address] Dr. Jodi Oglesby Lymphocytes/100 WBC (Bld) 13.0 % Critically low 20.5-60.0 [facility] [place] Comment on above: Performed By: #### C BC #### [facility] [address] [place] [address] Dr. Jodi Oglesby MANUAL DIFF REQ NO Normal [facility] [place] Comment on above: Performed By: #### C BC #### [facility] [address] [place] [address] Dr. Jodi Oglesby MCH (RBC) [Entitic mass] 31.5 pg Normal 25.9-34.0 [facility] [place] Comment on above: Performed By: #### C BC #### [facility] [address] [place] [address] Dr. Jodi Oglesby MCHC (RBC) [Mass/Vol] 32.9 g/dL Normal 29.9-35.2 [facility] [place] Comment on above: Performed By: #### C BC #### [facility] [address] [place] [address] Dr. Jodi Oglesby MCV (RBC) [Entitic vol] 96.0 fL Critically high 80.0-94.0 [facility] [place] Comment on above: Performed By: #### C BC #### [facility] [address] [place] [address] Dr. Jodi Oglesby MONO # 1.1 103/ul Critically high 0.3-0.8 [facility] [place] Comment on above: Performed By: #### C BC #### [facility] [address] [place] [address] Dr. Jodi Oglesby Monocytes/100 WBC (Bld) 10.7 % Normal 1.7-12.0 [facility] [place] Comment on above: Performed By: #### C BC #### [facility] [address] [place] [address] Dr. Jodi Oglesby NEUT # 7.4 103/ul Critically high 1.4-6.5 [facility] [place] Comment on above: Performed By: #### C BC #### [facility] [address] [place] [address] Dr. Jodi Oglesby Neutrophils/100 WBC (Bld) 73.1 % Normal 43.0-75.0 [facility] [place] Comment on above: Performed By: #### C BC #### [facility] [address] [place] [address] Dr. Jodi Oglesby Platelet mean volume (Bld) [Entitic vol] 9.3 fL Critically low 9.5-13.5 [facility] [place] Comment on above: Performed By: #### C BC #### [facility] [address] [place] [address] Dr. Jodi Oglesby PLT 288 103/ul Normal 150-450 [facility] [place] Comment on above: Performed By: #### C BC #### [facility] [address] [place] [address] Dr. Jodi Oglesby RBC 2.98 106/ul Critically low 4.70-6.10 [facility] Comment on above: Performed By: #### C BC #### [facility] [address] [place] [address] Dr. Jodi Oglesby WBC 10.1 103/ul Normal 4.0-11.0 [facility] Comment on above: Performed By: #### C BC #### [facility] [address] [place] [address] ABD/PELVIS WO CONon 11-11 CT ABD/PELVIS WO CON CT ABD/PELVIS WO CO N: 11/11/2021 1:35 AM EDT CLINICAL HISTORY: 81 years old Male with UNSPECIFIED ABDOMINAL PAIN. TECHNIQUE: Axial CT images through the abdomen and pelvis are obtained without the intravenous administration of contrast. Coronal and sagittal reformations are also obtained. Dose reduction techniques were achieved by using automated exposure control and/or adjustment of mA and/or kV according to patient size and/or use of iterative reconstruction technique. COMPARISON: CT abdomen pelvis 09/15/2019 and 03/16/2016. FINDINGS: The lung bases are clear with no dependent infiltrate or effusion. Without the use of IV or oral contrast the study is limited by incomplete evaluation of the blood vessels, solid visceral organs and bowel. The liver, spleen, pancreas and bilateral adrenal glands are unremarkable. The gallbladder is mildly distended with oval hyperdensity at the fundus measuring 1.7 x 0.9 cm (series 3 image 30). Multiple bilateral nonobstructing renal calculi are present measuring up to 1.0 cm on the left and 0.8 cm on the right. No hydronephrosis bilaterally. The bilateral ureters demonstrate no gross abnormality or obstruction. The stomach and small bowel are unremarkable. The appendix is visualized without inflammatory change.] Reticular seen throughout the colon as well as fecal stasis. There is abnormal mucosal thickening and stranding the proximal sigmoid colon. The bladder appears unremarkable. Infrarenal abdominal aortic aneurysm has increased in size from the prior study currently measuring 5.1 x 5.3 cm previously 4.6 x 4.6 cm. No enlarged lymph nodes are seen. No free air or free fluid is seen. The prostate gland is small in size with numerous coarse calcifications. There is new skin aneta along the left hip with likely subcutaneous hematoma partially included as well as dystrophic calcifications. Intramedullary arabella and intertrochanteric screw in the right hip is new from the prior study. Transfixing intertrochanteric fracture. 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 Compression deformity of the superior endplate of L2 is new from the prior study. Grade 1 anterolisthesis of L4 in relation to L5 is unchanged. IMPRESSION: 1. Sigmoid colon diverticulitis with similar appearance to multiple prior studies possibly chronic. Colonoscopy may be of added benefit if not recently performed. 2. Increased size of intra-abdominal aortic aneurysm to 5.1 cm in AP diameter previously 4.6 cm. 3. New superior compression fracture deformity L2 vertebral body of uncertain acuity. Correlate for point tenderness. 4.Nonobstructing renal calculi. 5. Distended gallbladder with oval hyperdensity at the fundus measuring 1.7 cm possible adherent stone although not definitive. Gallbladder ultrasound on nonemergent basis is recommended. 6 right intertrochanteric fracture as well as ORIF changes new from the prior study with surrounding soft tissue stranding and likely intramuscular and subcutaneous hematomas. 6. Left hip Paget's disease persists. Electronically authenticated by: TAYO CASTILLO Date: 2021-11-11 03:10 Normal [facility] Covid-19 PCR ([facility])on SARS-CoV-2 (COVID-19) RNA JESSIE+probe Ql (Unsp spec) Not detected Normal NOT DETECTED [facility] Comment on above: Result Comment: When diagnostic testing is negative, the possibility of a false negative should be considered in the context of a patient's recent exposures and the presence of clinical signs and symptoms consistent with SARS-CoV-2. This test is not yet approved or cleared by the [place] FDA. When there are no FDA-approved or cleared tests available, and other criteria are met, FDA can make tests available under an emergency access mechanism called an Emergency Use Authorization (EUA). The EUA for this test is supported by the Century of Health and Human Service's declaration that circumstances exist to justify the emergency use of in vitro diagnostics for the detection and/or diagnosis of the virus that causes COVID-19. This EUA will remain in effect for the duration of the COVID-19 declaration justifying emergency of IVDs, unless it is terminated or revoked by the FDA (after which the test may no longer be used). Performed By: #### C BC #### [facility] [address], [place] [address] Dr. Jodi Oglesby OCC BLD IMMUNO SCREENon OCCULT BLOOD Negative Normal NEGATIVE [facility] Comment on above: Performed By: #### D ATA1C #### [facility] [address], [place] [address] Dr. Jodi Oglesby PROF 14(COMP METB)on 022 Albumin [Mass/Vol] 3.0 g/dL Critically low 3.4-5.0 [facility] Comment on above: Performed By: #### C MP #### [facility] [address] [place] [address] Dr. Jodi Oglesby Albumin/Globulin [Mass ratio] 0.8 {ratio} Normal [facility] Comment on above: Performed By: #### C MP #### [facility] [address] [place] [address] [address] Jodi Oglesby ALP [Catalytic activity/Vol] 126 U/L Critically high 46-116 [facility] [place] Comment on above: Performed By: #### C MP #### [facility] [address] [place] [address] Dr. Jodi Oglesby ALT [Catalytic activity/Vol] 22 U/L Normal 16-63 [facility] [place] Comment on above: Performed By: #### C MP #### [facility] [address] [place] [address] Dr. Jodi Oglesby Anion gap [Moles/Vol] 16.7 mmol/L Normal [facility] Comment on above: Performed By: #### C MP #### [facility] [address] [place] [address] Dr. Jodi Oglesby AST [Catalytic activity/Vol] 23 U/L Normal 15-37 [facility] Comment on above: Performed By: #### C MP #### [facility] [address] [place] [address] Dr. Jodi Oglesby Bilirubin [Mass/Vol] 0.6 mg/dL Normal 0.2-1.0 [facility] Comment on above: Performed By: #### C MP #### [facility] [address] [place] [address] Dr. Jodi Oglesby Calcium [Mass/Vol] 8.5 mg/dL Normal 8.5-10.1 [facility] [place] Comment on above: Performed By: #### C MP #### [facility] [address] [place] [address] Dr. Jodi Oglesby Chloride [Moles/Vol] 99 mmol/L Normal 98-107 [facility] [place] Comment on above: Performed By: #### C MP #### [facility] [address] [address] [address] Jodi Oglesby CO2 [Moles/Vol] 27.4 mmol/L Normal 21.0-32.0 [facility] [place] Comment on above: Performed By: #### C MP #### [facility] [address] [place] [address] Dr. Jodi Oglesby Creatinine [Mass/Vol] 0.80 mg/dL Normal 0.70-1.30 [facility] Comment on above: Performed By: #### C MP #### [facility] [address] [place] [address] Dr. Jodi Oglesby EGFR-AF THAI >60 Normal >=60 [facility] [place] Comment on above: Performed By: #### C MP #### [facility] [address] [place] [address] Dr. Jodi Oglesby EGFR-NON AF THAI >60 Normal >=60 [facility] [place] Comment on above: Performed By: #### C MP #### [facility] [address] [place] [address] Dr. Jodi Oglesby Globulin (S) [Mass/Vol] 3.9 g/dL Normal [facility] [place] Comment on above: Performed By: #### C MP #### [facility] [address] [place] [address] Dr. Jodi Oglesby Glucose [Mass/Vol] 116 mg/dL Critically high 74-106 T [facility] Comment on above: Performed By: #### C MP #### [facility] [address] [place] [address] Dr. Jodi Oglesby Potassium [Moles/Vol] 4.1 mmol/L Normal 3.5-5.1 [facility] [place] Comment on above: Performed By: #### C MP #### [facility] [address] [place] [address] Dr. Jodi Oglesby Protein [Mass/Vol] 6.9 g/dL Normal 6.4-8.2 [facility] Comment on above: Performed By: #### C MP #### [facility] [address] [place] [address] Dr. Jodi Oglesby Sodium [Moles/Vol] 129 mmol/L Critically low 136-145 Th [facility] Comment on above: Performed By: #### C MP #### [facility] [address] [place] [address] Dr. Jodi Oglesby Urea nitrogen [Mass/Vol] 15.0 mg/dL Normal 7.0-18.0 [facility] [place] Comment on above: Performed By: #### C MP #### [facility] [address] [place] [address] Dr. Jodi Oglesby Urea nitrogen/Creatinine [Mass ratio] 18.8 mg/mg Normal [facility] Comment on above: Performed By: #### C MP #### [facility] [address] [place] [address] Dr. Jodi Oglesby PROTIMEon 11-11-2021 INR Coag (PPP) [Relative time] 1.01 {INR} Normal [facility] Comment on above: Performed By: #### P TT, PT #### [facility] [address] [place] [address] Dr. Jodi Oglesby INR GUIDELINES SEE BELOW Normal [facility] Comment on above: Result Comment: ESHA RED INR: 2.0 - 3.0 CONDITIONS NOT LISTED BELOW 2.5 - 3.5 FOR PROSTHETIC HEART VALVE REPLACEMENT 2.5 - 3.5 RECURRENT THROMBOSIS Performed By: #### P TT, PT #### [facility] [address] [place] [address] Dr. Jodi Oglesby PT Coag (PPP) [Time] 10.9 s Normal 9.0-11.6 [facility] Comment on above: Performed By: #### P TT, PT #### [facility] [address] [place] [address] Dr. Jodi Oglesby PTTon 11-11-2021 aPTT Coag (Bld) [Time] 25.4 s Normal 22.3-36.2 Th [facility] Comment on above: Performed By: #### P TT, PT #### [facility] [address] [place] [address] Dr. Jodi Oglesby CBC AUTO DIFFon 10-26-2021 BASO # 0.0 103/ul Normal 0.0-0.1 [facility] [place] Comment on above: Performed By: #### D ATA1C #### [facility] [address] [address] [address] Jodi Oglesby Basophils/100 WBC (Bld) 0.3 % Normal 0.2-2.0 [facility] [place] Comment on above: Performed By: #### D ATA1C #### [facility] [address] [address] [address] Jodi Oglesby EO # 0.1 103/ul Normal 0.0-0.7 [facility] Comment on above: Performed By: #### D ATA1C #### [facility] [address] [place] [address] Dr. Jodi Oglesby Eosinophils/100 WBC (Bld) 0.5 % Critically low 0.9-7.0 [facility] Comment on above: Performed By: #### D ATA1C #### [facility] [address] [place] [address] Dr. Jodi Oglesby Erythrocyte distribution width (RBC) [Ratio] 12.4 % Normal 11.0-15.0 [facility] Comment on above: Performed By: #### D ATA1C #### [facility] [address] [place] [address] Dr. Jodi Oglesby Hematocrit (Bld) [Volume fraction] 39.5 % Critically low 42.0-54.0 [facility] Comment on above: Performed By: #### D ATA1C #### [facility] [address] [place] [address] Dr. Jodi Oglesby Hemoglobin (Bld) [Mass/Vol] 12.8 g/dL Critically low 14.0-18.0 [facility] Comment on above: Performed By: #### D ATA1C #### [facility] [address] [place] [address] Dr. Jodi Oglesby IG # 0.07 10e3/ul Critically high 0.00-0.03 [facility] Comment on above: Performed By: #### D ATA1C #### [facility] [address] [address] [address] Jodi Oglesby IG % 0.5 % Normal 0.0-0.5 [facility] [place] Comment on above: Performed By: #### D ATA1C #### [facility] [address] [address] [address] Jodi Oglesby LYMPH # 0.9 103/ul Critically low 1.2-3.8 [facility] Comment on above: Performed By: #### D ATA1C #### [facility] [address] [address] [address] Jodi Oglesby Lymphocytes/100 WBC (Bld) 6.3 % Critically low 20.5-60.0 [facility] Comment on above: Performed By: #### D ATA1C #### [facility] [address] [place] [address] Dr. Jodi Oglesby MANUAL DIFF REQ NO Normal [facility] Comment on above: Performed By: #### D ATA1C #### [facility] [address] [address] [address] Jodi Oglesby MCH (RBC) [Entitic mass] 30.8 pg Normal 25.9-34.0 [facility] Comment on above: Performed By: #### D ATA1C #### [facility] [address] [place] [address] Dr. Jodi Oglesby MCHC (RBC) [Mass/Vol] 32.4 g/dL Normal 29.9-35.2 [facility] Comment on above: Performed By: #### D ATA1C #### [facility] [address] [place] [address] Dr. Jodi Oglesby MCV (RBC) [Entitic vol] 95.2 fL Critically high 80.0-94.0 [facility] Comment on above: Performed By: #### D ATA1C #### [facility] [address] [place] [address] Dr. Jodi Oglesby MONO # 0.9 103/ul Critically high 0.3-0.8 [facility] [place] Comment on above: Performed By: #### D ATA1C #### [facility] [address] [address] [address] Jodi Oglesby Monocytes/100 WBC (Bld) 6.2 % Normal 1.7-12.0 [facility] Comment on above: Performed By: #### D ATA1C #### [facility] [address] [place] [address] Dr. Jodi Oglesby NEUT # 12.8 103/ul Critically high 1.4-6.5 [facility] Comment on above: Performed By: #### D ATA1C #### [facility] [address] [place] [address] Dr. Jodi Oglesby Neutrophils/100 WBC (Bld) 86.2 % Critically high 43.0-75.0 [facility] Comment on above: Performed By: #### D ATA1C #### [facility] [address] [place] [address] Dr. Jodi Oglesby Platelet mean volume (Bld) [Entitic vol] 9.4 fL Critically low 9.5-13.5 [facility] Comment on above: Performed By: #### D ATA1C #### [facility] [address] [place] [address] Dr. Jodi Oglesby PLT 169 103/ul Normal 150-450 [facility] Comment on above: Performed By: #### D ATA1C #### [facility] [address] [place] [address] Dr. Jodi Oglesby RBC 4.15 106/ul Critically low 4.70-6.10 [facility] Comment on above: Performed By: #### D ATA1C #### [facility] [address] [place] [address] Dr. Jodi Oglesby WBC 14.8 103/ul Critically high 4.0-11.0 [facility] Comment on above: Performed By: #### D ATA1C #### [facility] [address] [place], [place] [id number] Dr. Jodi Oglesby CT CHEST WO CONon 10-26-2021 CT CHEST WO CON EXAMINATION:CT CHEST WO CON INDICATION:CHEST PAIN, UNSPECIFIED, rule out pneumothorax. COMPARISON:01/28/2018 TECHNIQUE:Thin section transaxial slices were acquired through the chest. Coronal and sagittal reconstructed images were reviewed. IV CONTRAST:Without FINDINGS: LUNGS: There is a degree of chronic interstitial scarring throughout the chest which has progressed slightly from the previous exam. There are a few tiny stable peripheral calcified and noncalcified pulmonary nodules. No pneumothorax is appreciated. No suspicious airspace disease is present. PLEURAL CAVITY: No pleural effusion. There are pleural based calcifications which may represent asbestosis. MEDIASTINUM: Trachea and central airways are patent. HEART: Severe coronary artery calcifications are present. VASCULAR:The thoracic aorta is normal in caliber. LYMPH NODES:No suspicious lymphadenopathy. CHEST WALL/AXILLA: There is inflammation and fat stranding of the right anterior medial chest wall surrounding the clavicular fracture. BONES: There is an acute, mildly comminuted proximal right clavicular fracture. No other acute osseous injuries are present elsewhere in the bony thorax. There is multilevel endplate degeneration of the mid to lower thoracic spine with ossification along the anterior longitudinal ligament consistent with diffuse idiopathic skeletal hyperostosis. VISUALIZED UPPER ABDOMEN: Unremarkable. IMPRESSION: 1. Acute comminuted fracture of the medial right clavicle. No additional acute osseous injuries are noted elsewhere in the bony thorax. 2. Chronic interstitial lung disease is present in the chest. There is no pneumothorax or suspicious airspace disease. Electronically authenticated by: NICOLE SIMMS Date: 2021-10-26 17:38 Normal [facility] Covid-19 PCR ([facility])on 10-07 SARS-CoV-2 (COVID-19) RNA JESSIE+probe Ql (Unsp spec) Not detected Normal NOT DETECTED [facility] Comment on above: Result Comment: When diagnostic testing is negative, the possibility of a false negative should be considered in the context of a patient's recent exposures and the presence of clinical signs and symptoms consistent with SARS-CoV-2. This test is not yet approved or cleared by the [place] FDA. When there are no FDA-approved or cleared tests available, and other criteria are met, FDA can make tests available under an emergency access mechanism called an Emergency Use Authorization (EUA). The EUA for this test is supported by the Century of Health and Human Service's declaration that circumstances exist to justify the emergency use of in vitro diagnostics for the detection and/or diagnosis of the virus that causes COVID-19. This EUA will remain in effect for the duration of the COVID-19 declaration justifying emergency of IVDs, unless it is terminated or revoked by the FDA (after which the test may no longer be used). Performed By: #### D ATA1C #### [facility] [address] [address] [address] Jodi Oglesby PROF CHEM 8 (BAS METB)on Anion gap [Moles/Vol] 11.7 mmol/L Normal Th [facility] Comment on above: Performed By: #### C BC #### [facility] [address] [place] [address] Dr. Jodi Oglesby Calcium [Mass/Vol] 9.2 mg/dL Normal 8.5-10.1 [facility] [place] Comment on above: Performed By: #### C BC #### [facility] [address] [place] [address] Dr. Jodi Oglesby Chloride [Moles/Vol] 101 mmol/L Normal 98-107 [facility] [place] Comment on above: Performed By: #### C BC #### [facility] [address] [place] [address] Dr. Jodi Oglesby CO2 [Moles/Vol] 27.6 mmol/L Normal 21.0-32.0 [facility] [place] Comment on above: Performed By: #### C BC #### [facility] [address] [place] [address] Dr. Jodi Oglesby Creatinine [Mass/Vol] 0.98 mg/dL Normal 0.70-1.30 [facility] Comment on above: Performed By: #### C BC #### [facility] [address] [place] [address] Dr. Jodi Oglesby EGFR-AF THAI >60 Normal >=60 [facility] Comment on above: Performed By: #### C BC #### [facility] [address] [place] [address] Dr. Jodi Oglesby EGFR-NON AF THAI >60 Normal >=60 [facility] [place] Comment on above: Performed By: #### C BC #### [facility] [address] [place] [address] Dr. Jodi Oglesby Glucose [Mass/Vol] 119 mg/dL Critically high 74-106 T [facility] Comment on above: Performed By: #### C BC #### [facility] [address] [address] [address] Jodi Oglesby Potassium [Moles/Vol] 4.3 mmol/L Normal 3.5-5.1 [facility] Comment on above: Performed By: #### C BC #### [facility] [address] [address] [address] Jodi Oglesby Sodium [Moles/Vol] 136 mmol/L Normal 136-145 [facility] Comment on above: Performed By: #### C BC #### [facility] [address] [place] [address] Dr. Jodi Oglesby Urea nitrogen [Mass/Vol] 15.0 mg/dL Normal 7.0-18.0 [facility] Comment on above: Performed By: #### C BC #### [facility] [address] [place] [address] Dr. Jodi Oglesby Urea nitrogen/Creatinine [Mass ratio] 15.3 mg/mg Normal [facility] Comment on above: Performed By: #### C BC #### [facility] [address] [place] [address] Dr. Jodi Oglesby XR CLAVICLE RTon 10-26-2021 XR CLAVICLE RT EXAM: XR HUMERUS RT MIN 2 V, XR CLAVICLE RT DATE: 10/26/2021 2:55 PM EDT INDICATION: pain COMPARISON: None. TECHNIQUE: 2 views right humerus and 2 views right clavicle FINDINGS: No acute fracture. Normal osseous alignment. Age-related decreased bone mineral density. Moderate narrowing and osteophyte formation at the acromioclavicular joint. Degenerative changes cervical and thoracic spine. Soft tissues are unremarkable other than for atherosclerotic calcifications at aortic arch and probable calcified right pleural plaque. IMPRESSION: 1. No acute osseous abnormality. 2. Moderate acromioclavicular osteoarthrosis. 3. Osteopenia. Electronically authenticated by: ABY ALDANA Date: 2021-10-26 15:37 Normal [facility] XR ELBOW RT MIN 3 VIEWSon XR ELBOW RT MIN 3 VIEWS EXAM: XR ELBOW RT MIN 3 VIEWS HISTORY: The patient is a 81-year-old male with right elbow pain after falling. COMPARISON: None. FINDINGS: The right elbow is radiographically negative with no evidence of fracture, dislocation, fat pad elevation, or other osseous or articular abnormalities. IMPRESSION: Negative. Electronically authenticated by: DEL CHAKRABORTY Date: 2021-10-26 17:23 Normal [facility] XR HIP RT 2 3V W PELVISon XR HIP RT 2 3V W PELVIS IMAGES REVIEWED: XR HIP RT 2 3V W PELVIS COMPARISON: 09/15/2019. CLINICAL INDICATION: Fall, pain. FINDINGS/IMPRESSION: 1. Acute mildly displaced obliquely oriented fracture of the intertrochanteric right proximal femur. 2. Osteopenia. 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 Electronically authenticated by: CHARLES ALEJANDRA Date: 2021-10-26 15:40 Normal [facility] CARDIAC STRESS/REST INJE CTIONon 10-21-2021 [facility] CARDIAC STRESS/REST INJECTION Patient Name: CHICO BAKER STUDY: MYOCARDIAL PERFUSION STRESS TEST WITH LEXISCAN Performing facility: [facility], [address] [place] [address], [address], [address] Provider: Adilene Harrington MD, [facility] PCP: Dr. Jori Dunham Supervising provider: Adilene Harrington MD, [facility] INDICATION: AAA Pre-operative risk assessment for AAA [place] [facility] [place] HISTORY: Gender: M; Age: 81 y/o ; Height: 0 cm; Weight: 0 kg. HTN; Carotid disease PAD AAA Denies smoking. COMPARISON: Previous nuclear testing completed [id number] at [place]. Previous echo testing completed on 2020 [place] [facility] ACCESSION NUMBER(S): [id number]; [id number]; [id number] ORDERING CLINICIAN: JUADH HARRINGTON TECHNIQUE: ONE DAY protocol. Stress injection: Date:10-21-21, 33.8 MCi of Myoview IV 20 seconds after rapid injection of Lexiscan. Rest injection: Date: 10-21-21, 11.1 mCi of Myoview IV at rest. The patient had a rapid injection of 0.4 mg of Lexiscan IV over 10 seconds. Imaging was performed by gated tomographic technique. Reason for Lexiscan: AAA STRESS TEST DATA: Resting heart rate was 63 BPM. Resting blood pressure was 142/78 mmHg. Peak blood pressure was 128/62 mmHg. Peak heart rate was 78 BPM. TEST TERMINATED DUE TO: Protocol completed FINDINGS: STRESS TEST RESULTS: Resting electrocardiogram revealed normal sinus rhythm with PVCs with non-specific ST and T changes. There were no significant ischemic ECG changes or dysrhythmias. The patient did not have chest pains/symptoms during procedure. There was a normal recovery phase. IMAGING RESULTS: Image quality was good. Rest and stress tomographic images were reviewed and revealed abnormal perfusion. There is evidence of perfusion abnormality involving the inferoapical segment that for the most part appear to be fixed suggestive prior myocardial infarction with minimal garrett-infarct ischemia There was no left ventricular dilatation with stress. Overall left ventricular systolic function appeared to be abnormal. There was mild inferoapical hypokinesis . LVEF was 50%. TID is 1.47 and is abnormal. There was no evidence of attenuation artifact. IMPRESSION: Abnormal Lexiscan Myoview cardiac perfusion stress test. Mild inferoapical myocardial ischemia by perfusion imaging. Small inferoapical myocardial infarction by perfusion imaging. Abnormal left ventricular systolic function with mild inferoapical hypokinesis. Left ventricular ejection fraction 50 %. When compared to study from another lab from 2008 the same perfusion abnormality was described ,however, the ejection fraction at that time was 61% compared to 50% on the present study. Electronically signed by: ALL HUDSON MD Normal [facility] No Panel Informationon 10-21 Normal -[facility] [address] MD Work Phone: COVID-19 Positive/NegativeOr dered By: Raul Quan on 10-13-2021 SARS-CoV-2 (COVID-19) N gene JESSIE+probe Ql (Resp) Negative Negative [facility] Comment on above: Testing for SARS-CoV -2 by RT-PCR This test was developed and its performance characteristics determined by [employer] ([place]) and validated at the [facility]. This test has not been FDA cleared or approved. This test has been authorized by FDA under an Emergency Use Authorization (EUA). This test has been validated in accordance with the FDA's Guidance Document (Policy for Diagnostics Testing in Laboratories Certified to Perform High Complexity Testing under CLIA prior to Emergency Use Authorization for Coronavirus Disease-2019 during the Public Health Emergency) issued on June 08, 2019. This test is only authorized for the duration of time the declaration that circumstances exist justifying the authorization of the emergency use of in vitro diagnostic tests for detection of SARS-CoV-2 virus and/or diagnosis of COVID-19 infection under section 564(b)(1) of the Act, 21 U.S.C. 360bbb-3(b)(1), unless the authorization is terminated or revoked sooner. Basophils Auto (Bld) [#/Vol] Ordered By: Raul Quan on 10-06-2021 Basophils (Bld) [#/Vol] 0.0 10*3/uL 0.0-0.2 [facility] Basophils/100 WBC Auto (Bld) Ordered By: Raul Quan on 10-06-2021 Basophils/100 WBC (Bld) 0.7 % . [facility] Blood hemoglobin measurement (mass/volume)Ordered By: Raul Quan on 10-06-2021 Hemoglobin (Bld) [Mass/Vol] 13.1 g/dL 13.0-17.0 [facility] Blood leukocytes automated c ount (number/volume)Ordered By: Raul Quan on 10-06-2021 WBC (Bld) [#/Vol] 5.2 10*3/uL 4.5-11.0 [facility] Creatinine and Glomerular fi ltration rate.predicted panel (S/P/Bld)Ordered By: Raul Quan on 10-06-2021 Creatinine [Mass/Vol] 0.98 mg/dL 0.64-1.27 [facility] Eosinophils Auto (Bld) [#/Vo l]Ordered By: Raul Quan on 10-06-2021 Eosinophils (Bld) [#/Vol] 0.1 10*3/uL 0.0-0.45 [facility] Eosinophils/100 WBC Auto (Bl d)Ordered By: Raul Quan on 10-06-2021 Eosinophils/100 WBC (Bld) 1.3 % . [facility] Erythrocyte distribution wid th Auto (RBC) [Ratio]Ordered By: Raul Quan on 10-06-2021 Erythrocyte distribution width (RBC) [Ratio] 13.3 % 12.0-14.8 [facility] Estimated glomerular filtrat ion rate (GFR) non- AmericanOrdered By: Raul Quan on 10-06-2021 GFR/1.73 sq M.predicted among non-blacks MDRD (S/P/Bld) [Vol rate/Area] > 60 mL/Min [facility] Hematocrit Auto (Bld) [Volum e fraction]Ordered By: Raul Quan on 10-06-2021 Hematocrit (Bld) [Volume fraction] 40.4 % 38.8-50.0 [facility] Laboratory - Hematology and Cell countsOrdered By: Raul Quan on 10-06-2021 Nucleated RBC/100 WBC (Bld) [Ratio] 0.0 % 0-0.5 [facility] Lymphocytes Auto (Bld) [#/Vo l]Ordered By: Raul Quan on 10-06-2021 Lymphocytes (Bld) [#/Vol] 1.0 10*3/uL 1.00-4.8 [facility] Lymphocytes/100 WBC Auto (Bl d)Ordered By: Raul Quan on 10-06-2021 Lymphocytes/100 WBC (Bld) 18.4 % . [facility] MCH Auto (RBC) [Entitic mass ]Ordered By: Raul Quan on 10-06-2021 MCH (RBC) [Entitic mass] 30.9 pg 27.5-35.2 [facility] MCHC Auto (RBC) [Mass/Vol]Or dered By: Raul Quan on 10-06-2021 MCHC (RBC) [Mass/Vol] 32.5 g/dL 32.5-35.6 [facility] MCV Auto (RBC) [Entitic vol] Ordered By: Raul Quan on 10-06-2021 MCV (RBC) [Entitic vol] 95.2 fL 83.5-101 [facility] Monocytes Auto (Bld) [#/Vol] Ordered By: Raul Quan on 10-06-2021 Monocytes (Bld) [#/Vol] 0.6 10*3/uL 0.0-0.8 [facility] Monocytes/100 WBC Auto (Bld) Ordered By: Raul Quan on 10-06-2021 Monocytes/100 WBC (Bld) 12.0 % . [facility] Neutrophils Auto (Bld) [#/Vo l]Ordered By: Raul Quan on 10-06-2021 Neutrophils (Bld) [#/Vol] 3.5 10*3/uL 1.8-7.7 [facility] Neutrophils/100 WBC Auto (Bl d)Ordered By: Raul Quan on 10-06-2021 Neutrophils/100 WBC (Bld) 67.6 % . [facility] No Panel InformationOrdered By: Raul Quan on 10-06-2021 Estimated GFR () > 60 mL/Min [facility] Comment on above: GFR estimated refere nce range: According to KDOQI guidelines, <60 ml/min/1.73m2 is sufficient to diagnose a patient with chronic kidney disease. Pharmacy Creatinine Clearance (Chem N/A [facility] Platelet mean volume Auto (B ld) [Entitic vol]Ordered By: Raul Quan on 10-06-2021 Platelet mean volume (Bld) [Entitic vol] 8.1 fL 6.6-10.1 [facility] Platelets Auto (Bld) [#/Vol] Ordered By: Raul Quan on 10-06-2021 Platelets (Bld) [#/Vol] 185 10*3/uL 150-450 [facility] RBC Auto (Bld) [#/Vol]Ordere d By: Raul Quan on 10-06-2021 RBC (Bld) [#/Vol] 4.25 10*6/uL 3.90-5.60 [facility] Serum or plasma calcium richy urement (mass/volume)Ordered By: Raul Quan on 10-06-2021 Calcium [Mass/Vol] 9.0 mg/dL 8.2-10.2 [facility] Serum or plasma chloride young surement (moles/volume)Ordered By: Raul Quan on 10-06-2021 Chloride [Moles/Vol] 101 mmol/L 95-114 [facility] Serum or plasma glucose richy urement (mass/volume)Ordered By: Raul Quan on 10-06-2021 Glucose [Mass/Vol] 187 mg/dL 70-100 [facility] Comment on above: ADA recommended refe rence range Random Glucose Reference Range is dependent on time and content of last meal. Glucose of more than 200 mg/dL in a nonstressed, ambulatory subject supports the diagnosis of Diabetes Mellitus. Serum or plasma potassium me asurement (moles/volume)Ordered By: Raul Quan on 10-06-2021 Potassium [Moles/Vol] 4.0 mmol/L 3.5-5.1 [facility] Serum or plasma sodium measu rement (moles/volume)Ordered By: Raul Quan on 10-06-2021 Sodium [Moles/Vol] 135 mmol/L 136-146 [facility] Serum or plasma total carbon dioxide measurement (moles/volume)Ordered By: Raul Quan on 10-06-2021 CO2 [Moles/Vol] 25.1 mmol/L 22.0-30.0 [facility] Serum or plasma urea nitroge n measurement (mass/volume)Ordered By: Raul Quan on 10-06-2021 Urea nitrogen [Mass/Vol] 13 mg/dL 9-23 [facility] CBC AUTO DIFFon 09-22-2021 BASO # 0.0 103/ul Normal 0.0-0.1 [facility] Comment on above: Performed By: #### C BC #### [facility] [address] [address] [address] Jodi Oglesby Basophils/100 WBC (Bld) 0.3 % Normal 0.2-2.0 [facility] Comment on above: Performed By: #### C BC #### [facility] [address] [address] [address] Jodi Oglesby EO # 0.1 103/ul Normal 0.0-0.7 [facility] Comment on above: Performed By: #### C BC #### [facility] [address] [place] [address] Dr. Jodi Oglesby Eosinophils/100 WBC (Bld) 0.8 % Critically low 0.9-7.0 [facility] Comment on above: Performed By: #### C BC #### [facility] [address] [place] [address] Dr. Jodi Oglesby Erythrocyte distribution width (RBC) [Ratio] 12.5 % Normal 11.0-15.0 [facility] Comment on above: Performed By: #### C BC #### [facility] [address] [place] [address] Dr. Jodi Oglesby Hematocrit (Bld) [Volume fraction] 43.6 % Normal 42.0-54.0 [facility] Comment on above: Performed By: #### C BC #### [facility] [address] [place] [address] Dr. Jodi Oglesby Hemoglobin (Bld) [Mass/Vol] 14.1 g/dL Normal 14.0-18.0 [facility] Comment on above: Performed By: #### C BC #### [facility] [address] [place] [address] Dr. Jodi Oglesby IG # 0.03 10e3/ul Normal 0.00-0.03 [facility] Comment on above: Performed By: #### C BC #### [facility] [address] [place] [address] Dr. Jodi Oglesby IG % 0.3 % Normal 0.0-0.5 [facility] Comment on above: Performed By: #### C BC #### [facility] [address] [place] [address] Dr. Jodi Oglesby LYMPH # 1.5 103/ul Normal 1.2-3.8 [facility] Comment on above: Performed By: #### C BC #### [facility] [address] [place] [address] Dr. Jodi Oglesby Lymphocytes/100 WBC (Bld) 17.2 % Critically low 20.5-60.0 [facility] Comment on above: Performed By: #### C BC #### [facility] [address] [place] [address] Dr. Jodi Oglesby MANUAL DIFF REQ NO Normal [facility] Comment on above: Performed By: #### C BC #### [facility] [address] [place] [address] Dr. Jodi Oglesby MCH (RBC) [Entitic mass] 31.1 pg Normal 25.9-34.0 [facility] Comment on above: Performed By: #### C BC #### [facility] [address] [place] [address] Dr. Jodi Oglesby MCHC (RBC) [Mass/Vol] 32.3 g/dL Normal 29.9-35.2 [facility] Comment on above: Performed By: #### C BC #### [facility] [address] [place] [address] Dr. Jodi Oglesby MCV (RBC) [Entitic vol] 96.0 fL Critically high 80.0-94.0 [facility] Comment on above: Performed By: #### C BC #### [facility] [address] [place] [address] Dr. Jodi Oglesby MONO # 1.0 103/ul Critically high 0.3-0.8 [facility] Comment on above: Performed By: #### C BC #### [facility] [address] [place] [address] Dr. Jodi Oglesby Monocytes/100 WBC (Bld) 10.8 % Normal 1.7-12.0 [facility] Comment on above: Performed By: #### C BC #### [facility] [address] [place] [address] Dr. Jodi Oglesby NEUT # 6.2 103/ul Normal 1.4-6.5 [facility] Comment on above: Performed By: #### C BC #### [facility] [address] [place] [address] Dr. Jodi Oglesby Neutrophils/100 WBC (Bld) 70.6 % Normal 43.0-75.0 [facility] Comment on above: Performed By: #### C BC #### [facility] [address] [address] [address] Jodi Oglesby Platelet mean volume (Bld) [Entitic vol] 9.6 fL Normal 9.5-13.5 [facility] Comment on above: Performed By: #### C BC #### [facility] [address] [address] [address] Jodi Oglesby PLT 206 103/ul Normal 150-450 [facility] Comment on above: Performed By: #### C BC #### [facility] [address] [place] [address] Dr. Jodi Oglesby RBC 4.54 106/ul Critically low 4.70-6.10 [facility] Comment on above: Performed By: #### C BC #### [facility] [address] [place] [address] Dr. Jodi Oglesby WBC 8.8 103/ul Normal 4.0-11.0 [facility] Comment on above: Performed By: #### C BC #### [facility] [address] [place] [address] Dr. Jodi Oglesby PROF CHEM 8 (BAS METB)on Anion gap [Moles/Vol] 9.5 mmol/L Normal [facility] Comment on above: Performed By: #### B MP #### [facility] [address] [place] [address] Dr. Jodi Oglesby Calcium [Mass/Vol] 9.4 mg/dL Normal 8.5-10.1 [facility] Comment on above: Performed By: #### B MP #### [facility] [address] [place] [address] Dr. Jodi Oglesby Chloride [Moles/Vol] 100 mmol/L Normal 98-107 [facility] Comment on above: Performed By: #### B MP #### [facility] [address] [place] [address] Dr. Jodi Oglesby CO2 [Moles/Vol] 33.2 mmol/L Critically high 21.0-32.0 [facility] Comment on above: Performed By: #### B MP #### [facility] [address] [address] [address] Jodi Oglesby Creatinine [Mass/Vol] 0.99 mg/dL Normal 0.70-1.30 [facility] Comment on above: Performed By: #### B MP #### [facility] [address] [address] [address] Jodi Oglesby EGFR-AF THAI >60 Normal >=60 [facility] Comment on above: Performed By: #### B MP #### [facility] [address] [address] [address] Jodi Oglesby EGFR-NON AF THAI >60 Normal >=60 [facility] Comment on above: Performed By: #### B MP #### [facility] [address] [place] [address] Dr. Jodi Oglesby Glucose [Mass/Vol] 109 mg/dL Critically high 74-106 T [facility] Comment on above: Performed By: #### B MP #### [facility] [address] [place] [address] Dr. Jodi Oglesby Potassium [Moles/Vol] 4.7 mmol/L Normal 3.5-5.1 [facility] Comment on above: Performed By: #### B MP #### [facility] [address] [place] [address] Dr. Jodi Oglesby Sodium [Moles/Vol] 138 mmol/L Normal 136-145 [facility] Comment on above: Performed By: #### B MP #### [facility] [address] [place] [address] Dr. Jodi Oglesby Urea nitrogen [Mass/Vol] 17.0 mg/dL Normal 7.0-18.0 [facility] Comment on above: Performed By: #### B MP #### [facility] [address] [place] [address] Dr. Jodi Oglesby Urea nitrogen/Creatinine [Mass ratio] 17.2 mg/mg Normal [facility] Comment on above: Performed By: #### B MP #### [facility] [address] [place] [address] Dr. Jodi Oglesby Creatinine (Bld) [Mass/Vol]O rdered By: Tamar Perea on 09-18-2021 Creatinine [Mass/Vol] 0.8 mg/dL 0.6-1.3 [facility] Comment on above: ER/ESD physician is notified/shown all ISTAT results. Critical values may be confirmed by laboratory testing if deemed necessary by ER attending doctor. No Panel InformationOrdered By: Tamar Perea on 09-18-2021 POC Estimated GFR > 60 [facility] Comment on above: GFR estimated refere nce range: According to KDOQI guidelines, <60 ml/min/1.73m2 is sufficient to diagnose a patient with chronic kidney disease. POC Estimated GFR Non- Amer > 60 [facility] CBC AUTO DIFFon 08-12-2021 BASO # 0.0 103/ul Normal 0.0-0.1 [facility] Comment on above: Performed By: #### C BC #### [facility] [address] [place] [address] Dr. Jodi Oglesby Basophils/100 WBC (Bld) 0.3 % Normal 0.2-2.0 [facility] Comment on above: Performed By: #### C BC #### [facility] [address] [place] [address] Dr. Jodi Oglesby EO # 0.1 103/ul Normal 0.0-0.7 [facility] Comment on above: Performed By: #### C BC #### [facility] [address] [place] [address] Dr. Jodi Oglesby Eosinophils/100 WBC (Bld) 1.8 % Normal 0.9-7.0 [facility] Comment on above: Performed By: #### C BC #### [facility] [address] [place] [address] Dr. Jodi Oglesby Erythrocyte distribution width (RBC) [Ratio] 12.6 % Normal 11.0-15.0 [facility] Comment on above: Performed By: #### C BC #### [facility] [address] [place] [address] Dr. Jodi Oglesby Hematocrit (Bld) [Volume fraction] 40.9 % Critically low 42.0-54.0 [facility] Comment on above: Performed By: #### C BC #### [facility] [address] [place] [address] Dr. Jodi Oglesby Hemoglobin (Bld) [Mass/Vol] 13.4 g/dL Critically low 14.0-18.0 [facility] Comment on above: Performed By: #### C BC #### [facility] [address] [place] [address] Dr. Jodi Oglesby IG # 0.03 10e3/ul Normal 0.00-0.03 [facility] Comment on above: Performed By: #### C BC #### [facility] [address] [place] [address] Dr. Jodi Oglesby IG % 0.4 % Normal 0.0-0.5 [facility] Comment on above: Performed By: #### C BC #### [facility] [address] [place] [address] Dr. Jodi Oglesby LYMPH # 1.4 103/ul Normal 1.2-3.8 [facility] Comment on above: Performed By: #### C BC #### [facility] [address] [place] [address] Dr. Jodi Oglesby Lymphocytes/100 WBC (Bld) 18.6 % Critically low 20.5-60.0 [facility] Comment on above: Performed By: #### C BC #### [facility] [address] [place] [address] Dr. Jodi Oglesby MCH (RBC) [Entitic mass] 31.5 pg Normal 25.9-34.0 [facility] Comment on above: Performed By: #### C BC #### [facility] [address] [place] [address] Dr. Jodi Oglesby MCHC (RBC) [Mass/Vol] 32.8 g/dL Normal 29.9-35.2 [facility] Comment on above: Performed By: #### C BC #### [facility] [address] [place] [address] Dr. Jodi Oglesby MCV (RBC) [Entitic vol] 96.0 fL Critically high 80.0-94.0 [facility] Comment on above: Performed By: #### C BC #### [facility] [address] [place] [address] Dr. Jodi Oglesby MONO # 0.7 103/ul Normal 0.3-0.8 [facility] Comment on above: Performed By: #### C BC #### [facility] [address] [place] [address] Dr. Jodi Oglesby Monocytes/100 WBC (Bld) 9.7 % Normal 1.7-12.0 [facility] Comment on above: Performed By: #### C BC #### [facility] [address] [place] [address] Dr. Jodi Oglesby NEUT # 5.1 103/ul Normal 1.4-6.5 [facility] Comment on above: Performed By: #### C BC #### [facility] [address] [place] [address] Dr. Jodi Oglesby Neutrophils/100 WBC (Bld) 69.2 % Normal 43.0-75.0 [facility] Comment on above: Performed By: #### C BC #### [facility] [address] [place] [address] Dr. Jodi Oglesby Platelet mean volume (Bld) [Entitic vol] 9.8 fL Normal 9.5-13.5 [facility] Comment on above: Performed By: #### C BC #### [facility] [address] [place] [address] Dr. Jodi Oglesby PLT 195 103/ul Normal 150-450 [facility] Comment on above: Performed By: #### C BC #### [facility] [address] [place] [address] Dr. Jodi Oglesby RBC 4.26 106/ul Critically low 4.70-6.10 [facility] Comment on above: Performed By: #### C BC #### [facility] [address] [place] [address] Dr. Jodi Oglesby WBC 7.4 103/ul Normal 4.0-11.0 [facility] [facility] Comment on above: Performed By: #### C BC #### [facility] [address] [place] [address] Dr. Jodi Oglesby ASHLEY - TSHon 08-12-2021 TSH 1.879 uIU/mL Normal 0.358-3.740 [facility] Comment on above: Performed By: #### D LULU DATBMP #### [facility] [address] [place] [address] Dr. Jodi Oglesby TSH RANGE SEE BELOW Normal [facility] Comment on above: Result Comment: <0.3 4 UIU/ml HYPERTHYROID 0.34-5.60 UIU/ml EUTHYROID >5.60 UIU/ml HYPOTHYROID Performed By: #### D LULU DATBMP #### [facility] [address] [place] [address] Dr. Jodi Oglesby ASHLEY- BMP WITH LIPIDon 2021 Anion gap [Moles/Vol] 11.4 mmol/L Normal [facility] Comment on above: Performed By: #### D LULU DATBMP #### [facility] [address] [place] [address] Dr. Jodi Oglesby Calcium [Mass/Vol] 8.7 mg/dL Normal 8.5-10.1 [facility] Comment on above: Performed By: #### D LULU DATBMP #### [facility] [address] [place] [address] Dr. Jodi Oglesby Chloride [Moles/Vol] 105 mmol/L Normal 98-107 [facility] Comment on above: Performed By: #### D ATTKENDELL DATBMP #### [facility] [address] [place] [address] Dr. Jodi Oglesby Cholesterol [Mass/Vol] 113 mg/dL Normal <=200 [facility] Comment on above: Performed By: #### D ATTKENDELL DATBMP #### [facility] [address] [place] [address] Dr. Jodi Oglesby Cholesterol in HDL [Mass/Vol] 47 mg/dL Normal 40-60 [facility] Comment on above: Performed By: #### D ATTSH, DATBMP #### [facility] [address] [place] [address] Dr. Jodi Oglesby Cholesterol in LDL [Mass/Vol] 58.0 mg/dL Normal [facility] Comment on above: Performed By: #### D ATTSH, DATBMP #### [facility] [address] [place] [address] Dr. Jodi Oglesby CO2 [Moles/Vol] 29.0 mmol/L Normal 21.0-32.0 [facility] Comment on above: Performed By: #### D ATTKENDELL, DATBMP #### [facility] [address] [place] [address] Dr. Jodi Oglesby Creatinine [Mass/Vol] 0.99 mg/dL Normal 0.70-1.30 [facility] Comment on above: Performed By: #### D ATTSH, DATBMP #### [facility] [address] [place] [address] Dr. Jodi Oglesby EGFR-AF THAI >60 Normal >=60 [facility] Comment on above: Performed By: #### D ATTKENDELL DATBMP #### [facility] [address] [place] [address] Dr. Jodi Oglesby EGFR-NON AF THAI >60 Normal >=60 [facility] Comment on above: Performed By: #### D ATTSH, DATBMP #### [facility] [address] [place] [address] Dr. Jodi Oglesby Glucose [Mass/Vol] 116 mg/dL Critically high 74-106 [facility] Comment on above: Performed By: #### D ATTSH, DATBMP #### [facility] [address] [place] [address] Dr. Jodi Oglesby HDL NORMAL > or = 60 mg/dl - LO W CARDIOVASCULAR RISK <40 mg/dl - HIGH CARDIOVASCULAR RISK Normal [facility] Comment on above: Performed By: #### D ATTSH, DATBMP #### [facility] [address] [place] [address] Dr. Jodi Oglesby LDL CALC NORMAL SEE BELOW Normal [facility] Comment on above: Result Comment: <100 mg/dl OPTIMAL 100 - 129 mg/dl NEAR OR ABOVE OPTIMAL 130 - 159 mg/dl BORDERLINE HIGH 160 - 189 mg/dl HIGH >190 mg/dl VERY HIGH Performed By: #### D ATTKENDELL, DATBMP #### [facility] [address] [address] [address] Jodi Oglesby Potassium [Moles/Vol] 4.4 mmol/L Normal 3.5-5.1 [facility] Comment on above: Performed By: #### D ATTKENDELL, DATBMP #### [facility] [address] [address] [address] Jodi Oglesby Sodium [Moles/Vol] 141 mmol/L Normal 136-145 [facility] Comment on above: Performed By: #### D ATTKENDELL DATBMP #### [facility] [address] [address] [address] Jodi Oglebsy Triglyceride [Mass/Vol] 40 mg/dL Normal <=150 [facility] Comment on above: Performed By: #### D LULU DATBMP #### [facility] [address] [address] [address] Jodi Oglesby Urea nitrogen [Mass/Vol] 16.0 mg/dL Normal 7.0-18.0 [facility] Comment on above: Performed By: #### D LULU, DATBMP #### [facility] [address] [address] [address] Jodi Oglesby Urea nitrogen/Creatinine [Mass ratio] 16.2 mg/mg Normal [facility] Comment on above: Performed By: #### D ATTKENDELL, DATBMP #### [facility] [address] [address] [address] Jodi gOlesby VLDL CALC 8.0 mg/dL Normal [facility] Comment on above: Performed By: #### D ATTSH, DATBMP #### [facility] [address] [place] [address] Dr. Jodi Oglesby GLYCOHEMOGLOBIN A1Con 2021 ADA RECOMMENDATION SEE BELOW Normal [facility] Comment on above: Result Comment: ADA RECOMMENDED LIMIT 4.0 - 6.0 ADA THERAPEUTIC TARGET < 7.0 ACTION SUGGESTED > 7.0 Performed By: #### D ATA1C #### [facility] [address] [address] [address] Jodi Oglesby Glucose [Mass/Vol] 131 mg/dL Normal [facility] Comment on above: Performed By: #### D ATA1C #### [facility] [address] [address] [address] Jodi Oglesby HbA1c (Bld) [Mass fraction] 6.2 % Normal 4.5-6.2 [facility] Comment on above: Performed By: #### D ATA1C #### [facility] [address] [address] [address] Jodi Oglesby CNOVon 12-11-2020 CNOV Office Visit ([facility] ) -- CHICO BAKER ([id number]) 1940 M Date Time Provider Department 12/11/20 10:45 AM POWER CATHERINE During your visit today, we recorded the following information about you: Pulse Blood pressure Weight Height 60/minute 122/78 67.6 kg 1.702 m Power Catherine MD 12/11/2020 11:17 AM Signed [facility] OUTPATIENT VISIT DATE December 11, 2020 OUTPATIENT VISIT TYPE EST PRIMARY CARE PHYSICIAN: Shailesh Dunham (Jere) [address] [place] [address] REFERRING PHYSICIAN Power Catherine [address] [facility] [address] CHIEF COMPLAINT: Patient presents with: Established Patient Follow Up HISTORY OF PRESENT ILLNESS: Chico Baker was referred for consultation by ?Dr. Dunham. ?Opinions and recommendations in this consultation will be transmitted back to the referring physician by Epic notes or via mail. ? Mr. Baker ?is a?pleasant 80 year old male who is seen today for?folllow up AAA. Last DUS 01/2019 demonstrated it at approximately 4cm. Today's study shows it at 4.4cm. Diagnosed with COVID 06/2020, still recovering due to mild fatigue and decompensation. No other complaints otherwise. Former smoker, 80 pack years, quit ~20 years ago. Denies hx CAD. ? Hx varicose veins, s/p possible stripping on left. He denies that these cause him discomfort. Denies having worn stockings. ? 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 PAST SURGICAL HISTORY Procedure Laterality Date - FINGER AMPUTATION (SPECIFY DIGIT) HX right index - HEART CATHETERIZATION - LITHOTRIPSY COMMON BILE DUCT - PAST SURGICAL HISTORY OF knee - VASECTOMY SOCIAL HISTORY Social History Tobacco Use - Smoking status: Former Smoker Types: Cigarettes - Smokeless tobacco: Never Used Substance Use Topics - Alcohol use: Yes Alcohol/week: 8.3 standard drinks Types: 5 Shots of liquor per week - Drug use: No FAMILY HISTORY Problem Relation Age of Onset - Cancer Brother - Cancer Brother - Diabetes Sister - Hypertension Sister - Hypertension Brother - None Mother - None Father ALLERGIES: ALLERGIES Allergen Reactions - Shalini Inhibitors Unknown - Gadolinium-Containi* Unknown - Tetanus Vaccines An* Unknown MEDICATIONS: pravastatin (PRAVACHOL) 40 mg tablet Take 40 mg by mouth once daily. nitroglycerin sublingual (NITROQUICK) 0.3 mg SL tablet Dissolve 0.3 mg under the tongue every 5 minutes as needed. aspirin, enteric coated (ASPIRIN, ENTERIC COATED) 81 mg EC tablet Take 81 mg by mouth once daily. isosorbide mononitrate ER (IMDUR) 30 mg 24 hr tablet Take 30 mg by mouth once daily. carvedilol (COREG) 12.5 mg tablet Take 12.5 mg by mouth twice daily with meals. doxazosin (CARDURA) 4 mg tablet Take 4 mg by mouth daily at bedtime. REVIEW OF SYSTEMS: GENERAL: no acute distress All other ROS: negative I personally interviewed, confirmed and edited the above information as obtained by others. PHYSICAL EXAMINATION: BP 122/78 (BP Site: Right Arm, BP Position: Sitting, BP Cuff Size: Regular Adult) Pulse 60 Ht 170.2 cm (5' 7 ) Wt 67.6 kg (149 lb) SpO2 98% BMI 23.34 kg/m? General appearance: alert and cooperative individual, in no acute distress. Neck: no bruits Pulmonary: Lungs clear to auscultation bilaterally. Coronary: regular rate Abdomen: negative Upper Extremities: palp bilateral radial pulses Lower Extremities: palp popliteal pulses bilaterally, nonaneurysmal CARDIOVASCULAR MEDICINE TESTING: I have personally reviewed the DUS AAA. IMPRESSION/PLAN: Mr. Baker is a 80 year old male with 4.4 cm AAA. Repeat DUS AAA in 12 months with follow up. Continue statin therapy. ? Power Catherine MD Referring Provider: POWER CATHERINE [[id number]] Allergies As of Date: 12/11/2020 Noted Allergy Reaction SHALINI INHIBITORS 05/09/2015 16 - Unknown GADOLINIUM-CONTAINING CONTRAST ME*05/09/2015 16 - Unknown TETANUS VACCINES AND TOXOID 05/16/2015 16 - Unknown Date Reviewed: 12/11/2020 Reviewed by: Harika Menjivar - Fully Assessed Reason for Visit: Established Patient [175] Follow Up [171] Primary Visit Diagnosis:AAA (abdominal aortic aneurysm) without rupture (HCC) [I71.4] Order(s):US ABD AORTA [facility]PLE[facility] [[id number]] Order #: [id number] FUTURE Prescriptions as of 12/11/2020 - pravastatin (PRAVACHOL) 40 mg tablet Take 40 mg by mouth once daily. - nitroglycerin sublingual (NITROQUICK) 0.3 mg SL tablet (more content not included)... Normal [facility] Jessa 10-30-2020 JOANNAN Telephone ([facility]) -- CHICO BAKER ([id number]) 1940 M Date Time Provider Department 10/30/20 POWER CATHERINE During your visit today, we recorded the following information about you: Sheri Sandip Arora 10/30/2020 4:49 PM Signed Patient called to schedule his annual apt with dr. Catherine. He said he usually gets testing done first. Please place order. thanks Harika Menjivar 10/31/2020 8:18 AM Signed Order in for physician to co-sign Thank you Sheri Sandip Arora 11/04/2020 4:04 PM Signed Spoke to patient to schedule apts encounter closed. Allergies As of Date: 10/30/2020 Noted Allergy Reaction SHALINI INHIBITORS 05/09/2015 16 - Unknown GADOLINIUM-CONTAINING CONTRAST ME*05/09/2015 16 - Unknown TETANUS VACCINES AND TOXOID 05/16/2015 16 - Unknown Date Reviewed: 10/18/2017 Reviewed by: Power Catherine - Fully Assessed Reason for Visit: Orders [681] Primary Visit Diagnosis:Abdominal aortic aneurysm (AAA) without rupture (HCC) [I71.4] Order(s):US ABD AORTA [facility]PLE[facility] [[id number]] Order #: [id number] FUTURE Prescriptions as of 11/04/2020 - aspirin, enteric coated (ASPIRIN, ENTERIC COATED) 81 mg EC tablet Take 81 mg by mouth once daily. - isosorbide mononitrate ER (IMDUR) 30 mg 24 hr tablet Take 30 mg by mouth once daily. - carvedilol (COREG) 12.5 mg tablet Take 12.5 mg by mouth twice daily with meals. - doxazosin (CARDURA) 4 mg tablet Take 4 mg by mouth daily at bedtime. Problem List As Of Date: 10/30/2020 (None) Encounter Status:Closed by SHERI MOLINA on 11/04/20 Normal [facility] Vital Signs Date Time Vital Sign Value Performing Clinician Facility 01-13-2023 08:49-0500 Blood Pressure Location Ivelisse Hassan [facility] 01-13-2023 08:49-0500 Diastolic blood pressure 74 mm[Hg] Ivelisse Hassan [facility] 01-13-2023 08:49-0500 Heart rate 68 /min Ivelisse Lue [facility] 01-13-2023 08:49-0500 Respiratory rate 16 /min Vielisse Lue [facility] 01-13-2023 08:49-0500 Systolic blood pressure 156 mm[Hg] Ivelisse Lue [facility] 11-10-2022 10:30-0400 Body height 170.18 cm Raul Quan Other [employer] Other 11-10-2022 10:30-0400 Body mass index (BMI) [Ratio] 20.99 kg/m2 Raul Quan Other [employer] Other 11-10-2022 10:30-0400 Body temperature 97.8 [degF] Raul Quan Other [employer] Other 11-10-2022 10:30-0400 Body weight 60.78 kg Raul Quan Other [employer] Other 11-10-2022 10:30-0400 Diastolic blood pressure 64 mm[Hg] Raul Quan Other [employer] Other 11-10-2022 10:30-0400 SaO2% (BldA) [Mass fraction] 98 % Raul Quan Other [employer] Other 11-10-2022 10:30-0400 Systolic blood pressure 110 mm[Hg] Raul Quan Other [employer] [facility] [employer] Other 10-07-2022 08:49-0400 Blood Pressure Location Ivelisse Lue [facility] 10-07-2022 08:49-0400 Diastolic blood pressure 74 mm[Hg] Ivelisse Lue [facility] 10-07-2022 08:49-0400 Heart rate 75 /min Ivelisse Lue [facility] 10-07-2022 08:49-0400 Systolic blood pressure 139 mm[Hg] Ivelisse Lue [facility] 08-04-2022 11:15-0400 Body height 170.18 cm Raul Quan Other [employer] [facility] [employer] Other 08-04-2022 11:15-0400 Body mass index (BMI) [Ratio] 21.77 kg/m2 Raul Quan Other [employer] Other 08-04-2022 11:15-0400 Body temperature 97.8 [degF] Raul Quan Other [employer] Other 08-04-2022 11:15-0400 Body weight 63.05 kg Raul Quan Other [employer] Other 08-04-2022 11:15-0400 Diastolic blood pressure 68 mm[Hg] Raul Quan Other [employer] Other 08-04-2022 11:15-0400 SaO2% (BldA) [Mass fraction] 97 % Raul Quan Other [facility] [employer] Other 08-04-2022 11:15-0400 Systolic blood pressure 108 mm[Hg] Raul Quan Other [facility] [employer] Other 07-09-2022 08:00-0400 Body temperature 98.6 [degF] DO Shailesh Ball Work Phone: [facility] 07-09-2022 08:00-0400 Diastolic blood pressure 72 mm[Hg] DO Shailesh Ball Work Phone: [facility] 07-09-2022 08:00-0400 Heart rate 69 /min DO Shailesh Ball Work Phone: [facility] 07-09-2022 08:00-0400 Respiratory rate 16 /min DO Shailesh Ball Work Phone: [facility] 07-09-2022 08:00-0400 SaO2% (BldA) [Mass fraction] 97 % DO Shailesh Ball Work Phone: [facility] 07-09-2022 08:00-0400 Systolic blood pressure 154 mm[Hg] DO Shailesh Ball Work Phone: [facility] 07-09-2022 06:00-0400 Body weight 65.8 kg DO Shailesh Ball Work Phone: [facility] 07-08-2022 10:52-0400 Inhaled oxygen flow rate 8 L/min DO Shailesh Ball Work Phone: [facility] 07-08-2022 08:34-0400 Body height 167.64 cm DO Shailesh Ball Work Phone: [facility] 07-08-2022 08:34-0400 Body mass index (BMI) [Ratio] 22.7 kg/m2 DO Shailesh Ball Work Phone: [facility] 06-24-2022 09:27-0400 Blood Pressure Location Ivelisse Hassan [facility] 06-24-2022 09:27-0400 Diastolic blood pressure 75 mm[Hg] Ivelisse Lue [facility] 06-24-2022 09:27-0400 Heart rate 66 /min Ivelisse Lue [facility] 06-24-2022 09:27-0400 Respiratory rate 16 /min Ivelisse Lue [facility] 06-24-2022 09:27-0400 Systolic blood pressure 120 mm[Hg] Ivelisse Lue [facility] 05-21-2022 09:30-0400 Body height 170.18 cm Shailesh Ball Other [facility] [employer] Other 05-21-2022 09:30-0400 Body mass index (BMI) [Ratio] 21.8 kg/m2 Shailesh Ball Other [facility] [employer] Other 05-21-2022 09:30-0400 Body weight 63.14 kg Shailesh Ball Other [facility] [employer] Other 05-21-2022 09:30-0400 Diastolic blood pressure 73 mm[Hg] Shailesh Ball Other [facility] [employer] Other 05-21-2022 09:30-0400 Respiratory rate 12 /min Shailesh Ball Other [facility] [employer] Other 05-21-2022 09:30-0400 Systolic blood pressure 121 mm[Hg] Shailesh Ball Other [employer] Other 05-19-2022 11:00-0400 Body height 170.18 cm Tamar Perea Other [employer] Other 05-19-2022 11:00-0400 Body mass index (BMI) [Ratio] 22.02 kg/m2 Tamar Perea Other [employer] Other 05-19-2022 11:00-0400 Body temperature 97.5 [degF] Tamar Martinezjerardokhalida Other [employer] Other 05-19-2022 11:00-0400 Body weight 63.78 kg Tamar Martinezjerardokhalida Other [employer] Other 05-19-2022 11:00-0400 Diastolic blood pressure 76 mm[Hg] Tamar Martinezmoy Other [employer] Other 05-19-2022 11:00-0400 SaO2% (BldA) [Mass fraction] 98 % Tamar Perea Other [employer] Other 05-19-2022 11:00-0400 Systolic blood pressure 148 mm[Hg] Tamar Martinezjerardokhalida Other [employer] Other 04-15-2022 08:57-0500 Blood Pressure Location Ivelisse Lue [facility] 04-15-2022 08:57-0500 Diastolic blood pressure 78 mm[Hg] Ivelisse Lue [facility] 04-15-2022 08:57-0500 Heart rate 68 /min Ivelisse Lue [facility] 04-15-2022 08:57-0500 Respiratory rate 16 /min Ivelisse Lue [facility] 04-15-2022 08:57-0500 Systolic blood pressure 122 mm[Hg] Ivelisse Hassan [facility] 03-10-2022 11:30-0500 Body height 170.18 cm Raul Quan Other [employer] Other 03-10-2022 11:30-0500 Body mass index (BMI) [Ratio] 21.2 kg/m2 Raul Lawrencerejakub Other [employer] Other 03-10-2022 11:30-0500 Body temperature 97.8 [degF] Raul Quan Other [employer] Other 03-10-2022 11:30-0500 Body weight 61.42 kg Raul Quan Other [employer] Other 03-10-2022 11:30-0500 Diastolic blood pressure 64 mm[Hg] Raul Quan Other [employer] Other 03-10-2022 11:30-0500 SaO2% (BldA) [Mass fraction] 98 % Raul Quan Other [employer] Other 03-10-2022 11:30-0500 Systolic blood pressure 108 mm[Hg] Raul Quan Other [employer] Other 02-25-2022 11:09-0500 Blood Pressure Location IVA ANTOINE [facility] 02-25-2022 11:09-0500 Diastolic blood pressure 63 mm[Hg] IVA ARASH [facility] 02-25-2022 11:09-0500 Heart rate 64 /min IVA ARASH [facility] 02-25-2022 11:09-0500 Systolic blood pressure 105 mm[Hg] IVA ARASH [facility] 02-18-2022 14:12-0500 Blood Pressure Location IVA ARASH [facility] 02-18-2022 14:12-0500 Diastolic blood pressure 83 mm[Hg] IVA ARASH [facility] 02-18-2022 14:12-0500 Heart rate 70 /min IAV ARASH [facility] 02-18-2022 14:12-0500 Systolic blood pressure 142 mm[Hg] IVA ARASH [facility] 02-11-2022 08:42-0500 Blood Pressure Location Ivelisse Lue [facility] 02-11-2022 08:42-0500 Diastolic blood pressure 73 mm[Hg] Ivelisse Lue [facility] 02-11-2022 08:42-0500 Heart rate 68 /min Ivelisse Lue [facility] 02-11-2022 08:42-0500 Respiratory rate 16 /min Ivelisse Lue [facility] 02-11-2022 08:42-0500 Systolic blood pressure 150 mm[Hg] Ivelisse Hymane [facility] 02-05-2022 08:00-0500 Body temperature 99.1 [degF] DO Shailesh Ball Work Phone: [facility] 02-05-2022 08:00-0500 Diastolic blood pressure 76 mm[Hg] DO Shailesh Ball Work Phone: [facility] 02-05-2022 08:00-0500 Heart rate 78 /min DO Shailesh Ball Work Phone: [facility] 02-05-2022 08:00-0500 Respiratory rate 16 /min DO Shailesh Ball Work Phone: [facility] 02-05-2022 08:00-0500 SaO2% (BldA) [Mass fraction] 95 % DO Shailesh Ball Work Phone: [facility] 02-05-2022 08:00-0500 Systolic blood pressure 168 mm[Hg] DO Shailesh Ball Work Phone: [facility] 02-05-2022 03:21-0500 Body weight 64.1 kg DO Shailesh Ball Work Phone: [facility] 02-04-2022 11:43-0500 Inhaled oxygen flow rate 6 L/min DO Shailesh Ball Work Phone: [facility] 02-04-2022 09:31-0500 Body height 167.64 cm DO Shailesh Ball Work Phone: [facility] 02-04-2022 09:31-0500 Body mass index (BMI) [Ratio] 23.3 kg/m2 DO Shailesh Ball Work Phone: [facility] 01-20-2022 12:30-0500 Body height 170.18 cm Raul Quan Other [employer] Other 01-20-2022 12:30-0500 Body mass index (BMI) [Ratio] 21.92 kg/m2 Raul Buehrer Other [employer] Other 01-20-2022 12:30-0500 Body temperature 97.7 [degF] Raul Buehrer Other [employer] Other 01-20-2022 12:30-0500 Body weight 63.5 kg Raul Buehrer Other [employer] Other 01-20-2022 12:30-0500 Diastolic blood pressure 64 mm[Hg] Raul Buehrer Other [employer] Other 01-20-2022 12:30-0500 SaO2% (BldA) [Mass fraction] 99 % Raul Buehrer Other [employer] Other 01-20-2022 12:30-0500 Systolic blood pressure 116 mm[Hg] Raul Buehrer Other [employer] Other 01-05-2022 11:15-0400 Body height 170.18 cm Raul Buehrer Other [employer] Other 01-05-2022 11:15-0400 Body mass index (BMI) [Ratio] 21.92 kg/m2 Raul Buehrer Other [employer] Other 01-05-2022 11:15-0400 Body temperature 96 [degF] Raul Buehrer Other [employer] Other 01-05-2022 11:15-0400 Body weight 63.5 kg Raul Buehrer Other [employer] Other 01-05-2022 11:15-0400 Diastolic blood pressure 58 mm[Hg] Raul Quan Other [employer] Other 01-05-2022 11:15-0400 SaO2% (BldA) [Mass fraction] 99 % Raul Quan Other [employer] Other 01-05-2022 11:15-0400 Systolic blood pressure 100 mm[Hg] Raul Quan Other [employer] Other 11-24-2021 12:30-0400 Body height 170.18 cm Tamar Martinezmoy Other [employer] Other 11-24-2021 12:30-0400 Body mass index (BMI) [Ratio] 21.92 kg/m2 Tamar Martinezmoy Other [employer] Other 11-24-2021 12:30-0400 Body temperature 97.5 [degF] Tamar Martinezmoy Other [employer] Other 11-24-2021 12:30-0400 Body weight 63.5 kg Tamar Brit Other [employer] Other 11-24-2021 12:30-0400 Diastolic blood pressure 50 mm[Hg] Tamar Brit Other [employer] Other 11-24-2021 12:30-0400 SaO2% (BldA) [Mass fraction] 98 % Tamar Martinezmoy Other [employer] Other 11-24-2021 12:30-0400 Systolic blood pressure 96 mm[Hg] Tamar Perea Other [facility] [employer] Other 10-21-2021 07:30-0400 50 1 Shailesh E Ball Work Phone: [facility] [address] [place] Work Phone: Comment on above: [id number] 10-15-2021 08:27-0400 Body height 167.64 cm DO Shailesh Ball Work Phone: [facility] 10-15-2021 08:27-0400 Body temperature 97.7 [degF] DO Shailesh Ball Work Phone: [facility] 10-15-2021 08:27-0400 Body weight 66 kg DO Shailesh Ball Work Phone: [facility] 10-15-2021 08:27-0400 Diastolic blood pressure 75 mm[Hg] DO Shailesh Ball Work Phone: [facility] 10-15-2021 08:27-0400 Heart rate 73 /min DO Shailesh Ball Work Phone: [facility] 10-15-2021 08:27-0400 Respiratory rate 16 /min DO Shailesh Ball Work Phone: [facility] 10-15-2021 08:27-0400 SaO2% (BldA) [Mass fraction] 97 % DO Shailesh Ball Work Phone: [facility] 10-15-2021 08:27-0400 Systolic blood pressure 143 mm[Hg] DO Shailesh Ball Work Phone: [facility] 09-30-2021 13:30-0400 Body height 170.18 cm Tamar Perea Other [facility] [employer] Other 09-30-2021 13:30-0400 Body mass index (BMI) [Ratio] 24.27 kg/m2 Tamar Perea Other [employer] Other 09-30-2021 13:30-0400 Body temperature 97.4 [degF] Tamar Zhuo Other [employer] Other 09-30-2021 13:30-0400 Body weight 70.31 kg Tamar Zhuo Other [employer] Other 09-30-2021 13:30-0400 Diastolic blood pressure 70 mm[Hg] Tamar Zhuo Other [employer] Other 09-30-2021 13:30-0400 SaO2% (BldA) [Mass fraction] 98 % Tamar Zhuo Other [employer] Other 09-30-2021 13:30-0400 Systolic blood pressure 140 mm[Hg] Tamar Zhuo Other [employer] Other 09-15-2021 11:00-0400 Body height 170.18 cm Tamar Perea Other [employer] Other 09-15-2021 11:00-0400 Body mass index (BMI) [Ratio] 24.27 kg/m2 Tamar Zhuo Other [employer] Other 09-15-2021 11:00-0400 Body temperature 96.4 [degF] Tamar Zhuo Other [employer] Other 09-15-2021 11:00-0400 Body weight 70.31 kg Tamar Zhuo Other [employer] Other 09-15-2021 11:00-0400 Diastolic blood pressure 72 mm[Hg] Tamar Perea Other [employer] Other 09-15-2021 11:00-0400 SaO2% (BldA) [Mass fraction] 98 % Tamar Perea Other [employer] Other 09-15-2021 11:00-0400 Systolic blood pressure 138 mm[Hg] Tamar Perea Other [employer] Other 07-28-2021 10:45-0400 Body height 170.18 cm Raulchristiana Quan Other [employer] Other 07-28-2021 10:45-0400 Body mass index (BMI) [Ratio] 24.27 kg/m2 Raul Lawrencerer Other [employer] Other 07-28-2021 10:45-0400 Body temperature 96.6 [degF] Raul Lawrencerer Other [employer] Other 07-28-2021 10:45-0400 Body weight 70.31 kg Raul Melindarer Other [employer] Other 07-28-2021 10:45-0400 Diastolic blood pressure 78 mm[Hg] Raul Lawrencerer Other [employer] Other 07-28-2021 10:45-0400 SaO2% (BldA) [Mass fraction] 98 % Raul Lawrencerer Other [employer] Other 07-28-2021 10:45-0400 Systolic blood pressure 190 mm[Hg] Raul Buehrer Other [employer] Other Encounters Encounter Date Encounter Type Care Provider Facility Start: 03-24-2023 ambulatory Ivelisse Hassan Facility:C D:[id number] Start: 01-13-2023 End: 01-14-2023 ambulatory Ivelisse MSilvestre Hymane Facility:[facility] Start: 01-13-2023 End: 01-13-2023 Patient encounter procedure Ivelisse PorrasSilvestre Hassan [facility] Start: 11-10-2022 Office outpatient vi sit 25 minutes Raul Quan [facility] Start: 11-10-2022 End: 11-10-2022 ambulatory DO Shailesh Enrico Work Phone: [employer] Other Start: 11-10-2022 End: 11-10-2022 Patient encounter procedure DO Shailesh Enrico Work Phone: [facility]Ultrasound [facility] Start: 10-07-2022 End: 10-08-2022 ambulatory Ivelisse ChiquitaSilvestre Hymancaleb Facility:[facility] Start: 10-07-2022 End: 10-07-2022 Patient encounter procedure Ivelisse Hassan [facility] [place] Start: 08-04-2022 End: 08-04-2022 ambulatory Raul Quan Other [employer] Other Start: 08-04-2022 Postop follow up vis it related to original px Raul Quan [facility] Start: 07-28-2022 End: 07-29-2022 ambulatory Ivelissenaseem Hassan Facility:[facility] Start: 07-14-2022 ambulatory Ivelisse MSilvestre Hymane Facility:C D:[id number] Start: 07-09-2022 End: 07-09-2022 ambulatory Shailesh Ball Other [employer] Other Start: 07-09-2022 Telephone encounter Shailesh Dunham [facility] Start: 07-08-2022 End: 07-08-2022 ambulatory Shailesh Dunham Other [employer] Other Start: 07-08-2022 Telephone encounter Shailesh Dunham [facility] Start: 07-08-2022 End: 07-09-2022 Evaluation and management of inpatient Shailesh Ball Facility:[facility] Start: 07-08-2022 End: 07-09-2022 Evaluation and management of inpatient DO Shailesh Dunham Work Phone: [facility] Work Phone: Start: 07-01-2022 End: 07-01-2022 ambulatory Shailesh Enrico Facility:[facility] Start: 07-01-2022 End: 07-01-2022 ambulatory DO Shailesh Dunham Work Phone: [facility] Work Phone: Start: 07-01-2022 End: 07-01-2022 Patient encounter procedure DO Shailesh Dunham Work Phone: [facility] Work Phone: Start: 06-24-2022 End: 06-25-2022 ambulatory Ivelisse Hassan Facility:[facility] Start: 06-24-2022 End: 06-24-2022 Patient encounter procedure Ivelisse Hassan [facility] [place] Start: 05-21-2022 End: 05-21-2022 ambulatory Shailesh Dunham Other [employer] Other Start: 05-21-2022 Patient encounter procedure Shailesh Dunham [facility] Start: 05-19-2022 End: 05-19-2022 ambulatory Tamar Perea Other [employer] Other Start: 05-19-2022 Follow-up encounter Tamar Martinezmoy [facility] Start: 05-13-2022 End: 05-13-2022 ambulatory Raul Quan Other [employer] Other Start: 05-13-2022 Telephone encounter Raul STEPHENSON [facility] Start: 05-11-2022 End: 05-11-2022 ambulatory Shailesh Dunham Facility:[facility] Start: 05-11-2022 End: 05-11-2022 ambulatory DO Shailesh Dunham Work Phone: [facility] Work Phone: Start: 05-11-2022 End: 05-11-2022 Patient encounter procedure DO Shailesh Dunham Work Phone: [facility]CT Scan [facility] [place] Work Phone: Start: 04-23-2022 End: 04-23-2022 ambulatory Raul Quan Other [employer] Other Start: 04-23-2022 Telephone encounter Raul Avelina [facility] Start: 04-15-2022 End: 04-16-2022 ambulatory Ivelisse Hassan Facility:[facility] Start: 04-15-2022 End: 04-15-2022 Lab Drop off Ivelisse Hassan [facility] Start: 04-15-2022 End: 04-16-2022 ambulatory Ivelisse Hassan Facility:[facility] Start: 04-15-2022 End: 04-15-2022 Patient encounter procedure Ivelisse Hassan [facility] [place] Start: 04-14-2022 End: 04-14-2022 ambulatory Shailesh Dunham Other [employer] Other Start: 04-14-2022 Telephone encounter Shailesh Dunham [facility] Start: 03-10-2022 End: 03-10-2022 ambulatory Raul Quan Other [place] [employer] Other Start: 03-10-2022 Office outpatient vi sit 25 minutes Raul Quan [facility] Start: 02-25-2022 End: 02-25-2022 Patient encounter procedure IVA ANTOINE [facility] Start: 02-18-2022 End: 02-18-2022 Patient encounter procedure IVA BUSHRY [facility] Start: 02-11-2022 End: 02-11-2022 Lab Drop off Ivelisse Hassan [facility] Start: 02-11-2022 End: 02-11-2022 Patient encounter procedure Ivelisse Hassan [facility] Start: 02-10-2022 End: 02-11-2022 ambulatory IVELISSE HASSAN . Facility:[facility] Start: 02-07-2022 Encounter for other preprocedural examination DR RAUL QUAN [facility] Start: 02-07-2022 Encounter for preprocedural laboratory examination DR RAUL QUAN [facility] Start: 02-04-2022 End: 02-05-2022 Evaluation and management of inpatient Shailesh Dunham Facility:[facility] Start: 02-04-2022 End: 02-05-2022 Evaluation and management of inpatient DO Shailesh Dunham Work Phone: [facility] Start: 02-02-2022 End: 02-03-[address] RAUL QUAN Facility:[facility] Start: 02-02-2022 End: 02-03-2022 Encounter for other preprocedural examination DR RAUL QUAN Facility:[facility] Start: 01-20-2022 Office outpatient vi sit 25 minutes Raul Quan [facility] Start: 01-20-2022 End: 01-20-2022 ambulatory DO Shailesh Dunham Work Phone: [employer] Other Start: 01-20-2022 End: 01-20-2022 Patient encounter procedure DO Shailesh Enrico Work Phone: [facility] Start: 01-05-2022 End: 01-05-2022 ambulatory Raul Quan Other [employer] Other Start: 01-05-2022 Office outpatient vi sit 25 minutes Raul Quan [facility] Start: 12-08-2021 End: 12-09-[address] SHAILESH DUNHAM Facility:[facility] Start: 12-02-2021 End: 12-02-[address] SHAILESH DUNHAM Facility:[facility] Start: 11-24-2021 End: 11-24-2021 ambulatory Tamar Brit Other [employer] Other Start: 11-24-2021 Patient encounter procedure Tamar Brit [facility] Start: 11-11-2021 End: 11-11-[address] SHAILESH DUNHAM Facility:[facility] Start: 10-26-2021 End: 10-26-[address] SHAILESH DUNHAM Facility:[facility] Start: 10-21-2021 Patient encounter procedure Shailesh Dunham Work Phone: [facility] [address] [place] Work Phone: Start: 10-16-2021 Telephone encounter Judah Vivas MD Work Phone: [facility]-[place] [address] DO Work Phone: Start: 10-15-2021 End: 10-15-2021 Evaluation and management of inpatient DO Shailesh Dunham Work Phone: [facility] Start: 10-13-2021 End: 10-13-2021 Patient encounter procedure DO Shailesh Dunham Work Phone: [facility]Pre-Surgical Testing Start: 10-06-2021 End: 10-06-2021 Patient encounter procedure DO Shailesh Dunham Work Phone: [facility]-Surgical Testing Start: 09-30-2021 End: 09-30-2021 ambulatory Tamar Perea Other [employer] Other Start: 09-30-2021 Encounter for other preprocedural examination Tamar Brit [facility] Start: 09-30-2021 Follow-up encounter Tamar Perea [facility] Start: 09-22-2021 End: 09-23-[address] SHAILESH DUNHAM Facility:[facility] Start: 09-18-2021 End: 09-18-2021 Patient encounter procedure DO Shailesh Dunham Work Phone: [facility]CT Scan [facility] [place] Start: 09-15-2021 End: 09-15-2021 ambulatory Tamar Perea Other [employer] Other Start: 09-15-2021 Follow-up encounter Tamar Brit [facility] Start: 08-27-2021 End: 08-27-2021 Patient encounter procedure DO Shailesh Dunham Work Phone: [facility] Start: 08-12-2021 End: 08-13-[address] KURTZ LISTED REQUEST Facility:[facility] Start: 07-28-2021 End: 07-28-2021 ambulatory Raul Quan Other [employer] Other Start: 07-28-2021 Office outpatient ne w 45 minutes Raul Quan [facility] Start: 06-13-2020 End: 06-13-2020 Patient encounter procedure Lisandra Sher Work Phone: [facility] Work Phone: Patient encounter status Judah Harrington MD Work Phone: [facility] DO Work Phone: Procedures Date Procedure Procedure Detail Performing Clinician Start: 11-10-2022 Doppler ultrasonography of bilateral carotid arteries DO Shailesh Dunham Work Phone: Start: 07-28-2022 Cystourethroscopy with dilation of urethral stricture Ivelisse Hassan Start: 07-08-2022 Antibody screen Shailesh Dunham Comment on above: Result Comment: PERFORMED BY: [facility] [address] [place] [id number] PATHOLOGIST [employer] ZENA CASTELLON M.D. Start: 07-08-2022 Insertion of carotid artery stent DO Ryder Dunham Work Phone: Start: 05-11-2022 Computed tomography angiography of abdominal and/or pelvic blood vessel DO Shailesh Dunham Work Phone: Start: 05-11-2022 CT angiography of head DO Shailesh Dunham Work Phone: Start: 05-11-2022 CT angiography of neck vessels DO Josué Dunham Work Phone: Start: 02-10-2022 PSA screening IVELISSE HASSAN . Comment on above: Performed By: #### DATA1C #### [facility] [address] [place] [address] Dr. 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 Ivelisse Hassan Start: 02-04-2022 Antibody screen Shailesh Dunham Comment on above: Result Comment: PERFORMED BY: [facility] [address] [place] [address] PATHOLOGIST MA[employer] ZENA CASTELLON M.D. Start: 02-04-2022 Endovascular repair of abdominal aortic aneurysm DO Shailesh Dunham Work Phone: Start: 01-20-2022 Doppler ultrasonography of bilateral carotid arteries DO Shailesh Dunham Work Phone: Start: 09-18-2021 Computed tomography angiography of abdominal and/or pelvic blood vessel DO [employer] Work Phone: Start: 08-27-2021 US scan of aorta DO [employer] Work Phone: Start: 08-27-2021 Doppler ultrasonography of bilateral carotid arteries DO [employer] Work Phone: Start: 06-13-2020 Imm. administration COVID19 [employer] Work Phone: Start: 06-13-2020 SARS-CoV-2 vaccine, 0.5ml [employer] Work Phone: Start: 10-18-2019 Transurethral prostatectomy Ivelisse Lue Start: 04-06-2019 Cystoscope, device (physical object) Ivelisse Lue Start: 10-06-2016 Colonoscopy Ivelisse Lue Comment on above: 2010 Arthroscopy of knee Ivelisse Yenni e Catheterization of left heart Ivelisse Lue Esophagogastroduodenoscopy K athy Lue Plan of Treatment Date Care Activity Detail Author Start: 07-09-2022 [facility] Start: 07-08-2022 Hospital admission [facility] Start: 07-08-2022 Patient referral to dietitian [facility] Start: 02-05-2022 [facility] Start: 02-04-2022 [facility] Start: 02-04-2022 Hospital admission [facility] Start: 10-21-2021 STRESS NUC, Provider: SAL HHVI NUCLEAR ,[id number], Status: Pen, Time: 7:30 AM STRESS NUC, Provider: SAL [facility] NUCLEAR ,[id number], Status: Pen, Time: 7:30 AM [facility] [address] DO Work Phone: Start: 10-15-2021 [facility] Work Phone: Start: 10-15-2021 OR Percutaneous EVAR AAA (Not Applicable) OR Percutaneous EVAR AAA (Not Applicable) [facility] Start: 10-15-2021 End: 10-15-2021 Evaluation and management of inpatient AAA (abdominal aortic aneurysm) [facility] Start: 10-13-2021 End: 10-13-2021 Patient encounter procedure Departed Clinical [facility]Vvj-[facility]pna[facility] Testing Patient Education [facility] Work Phone: Patient referral [facility] Work Phone: Immunizations Immunization Date Immunization Notes Care Provider David holloway 06-13-2020 [employer] COVID 19 Vaccine [facility] Comment on above: Note: Patient tolera shyann well. No signs or symptoms of adverse reactions. Patient waited a minimum of 15 minutes. NEGATED: Highlighted row has not occurred!01-13-2023 influenza virus vaccine, unspecified formulation Ivelisse Hassan [facility] Payers Date Payer Category Payer Unknown [id number] . [id number] 1957 Self-pay [id number] 1959 Unknown [id number] 1959 Unknown [id number] 1959 Unknown [id number] 1942 Unknown [id number] 2.16.84 [id number] 1942 Unknown [id number] 2.16.84 [id number] 1942 Unknown [id number] 2.16.84 [id number] 1942 Unknown [id number] 2.16.84 [id number] 1942 Unknown [id number] 2.16.84 [id number] 1942 Unknown [id number] 2.16.84 [id number] 1942 Unknown [id number] 2.16.84 [id number] 1942 Unknown [id number] 2.16.8 [id number] 1942 Unknown [id number] 2.16.8 [id number] 1942 Unknown [id number] 2.16.8 [id number] 1942 Unknown [id number] 2.16.8 [id number] 1942 Unknown [id number] 2.16.8 [id number] 1942 Unknown [id number] 2.16.8 [id number] Self-pay Self Pay [id number] Unknown Unknown [facility] [id number] Unknown [id number] 2.16.84 [id number] Social History Date Type Detail Facility Tobacco smoking status Unknown i f ever smoked [facility] Work Phone: Start: 03-08-1955 End: 03-08-1996 Sex Assigned At [facility] Start: 10-15-2021 End: 10-07-2022 Tobacco smoking status GAIS Ex-smoker (finding) [facility] Start: 1940 Sex Assigned At Male [facility] Tobacco smoking status Never [facility] Medical Equipment Procedure Code Equipment Code Equipment Origin al Text Equipment Identifier Dates Transcarotid artery revascularization (TCAR) Bare-metal carotid artery stent ()[id number] FDA Start: 07-08-2022 Transcarotid artery revascularization (TCAR) Bare-metal carotid artery stent ()[id number] FDA Start: 07-08-2022 Percutaneous endovascular repair of abdominal aortic aneurysm (AAA) Abdominal aorta endovascular stent-graft ()[id number] FDA Start: 02-04-2022 Percutaneous endovascular repair of abdominal aortic aneurysm (AAA) Abdominal aorta endovascular stent-graft ()[id number] FDA Start: 02-04-2022 Percutaneous endovascular repair of abdominal aortic aneurysm (AAA) Abdominal aorta endovascular stent-graft ()[id number] FDA Start: 02-04-2022 Goals Date Patient Goal Desired Activity /State Functional Status Date Assessment Result Facility 01-13-2023 Functional Status N/A [facility] 10-07-2022 Functional Status N/A [facility] 07-09-2022 Functional status Patient is Pro gressing Toward Baseline [facility] Work Phone: 06-24-2022 Functional Status N/A [facility] 04-15-2022 Functional Status N/A [facility] 02-25-2022 Functional Status N/A [facility] 02-18-2022 Functional Status N/A [facility] 02-11-2022 Functional Status N/A [facility] 02-05-2022 Functional status Patient at Baseline [facility] Work Phone: 10-15-2021 Functional status Patient at Baseline [facility] Work Phone: Mental Status Date Assessment Result Facility 07-09-2022 Cognitive function Cognitive Sta tus Patient is Progressing Toward Baseline [facility] Work Phone: 02-05-2022 Cognitive function Cognitive Sta tus Patient at Baseline [facility] Work Phone: 10-15-2021 Cognitive function Cognitive Sta tus Patient at Baseline [facility] Work Phone: Clinical Notes 04-18-2020 to 01-13-2023 Note Date & Type Note Facility 01-13-2023 Hospital Discharge instructions Patient Education 01/13/2023 09:52:36 Benign Prostatic Hyperplasia Benign Prostatic Hyperplasia Benign prostatic hyperplasia (BPH) is an enlarged prostate gland that is caused by the normal aging process. The prostate may get bigger as a man gets older. The condition is not caused by cancer. The prostate is a walnut-sized gland that is involved in the production of semen. It is located in front of the rectum and below the bladder. The bladder stores urine. The urethra carries stored urine out of the body. An enlarged prostate can press on the urethra. This can make it harder to pass urine. The buildup of urine in the bladder can cause infection. Back pressure and infection may progress to bladder damage and kidney (renal) failure. What are the causes? This condition is part of the normal aging process. However, not all men develop problems from this condition. If the prostate enlarges away from the urethra, urine flow will not be blocked. If it enlarges toward the urethra and compresses it, there will be problems passing urine. What increases the risk? This condition is more likely to develop in men older than 50 years. What are the signs or symptoms? Symptoms of this condition include: Getting up often during the night to urinate. Needing to urinate frequently during the day. Difficulty starting urine flow. Decrease in size and strength of your urine stream. Leaking (dribbling) after urinating. Inability to pass urine. This needs immediate treatment. Inability to completely empty your bladder. Pain when you pass urine. This is more common if there is also an infection. Urinary tract infection (UTI). How is this diagnosed? This condition is diagnosed based on your medical history, a physical exam, and your symptoms. Tests will also be done, such as: A post-void bladder scan. This measures any amount of urine that may remain in your bladder after you finish urinating. A digital rectal exam. In a rectal exam, your health care provider checks your prostate by putting a lubricated, gloved finger into your rectum to feel the back of your prostate gland. This exam detects the size of your gland and any abnormal lumps or growths. An exam of your urine (urinalysis). A prostate specific antigen (PSA) screening. This is a blood test used to screen for prostate cancer. An ultrasound. This test uses sound waves to electronically produce a picture of your prostate gland. Your health care provider may refer you to a specialist in kidney and prostate diseases (urologist). How is this treated? Once symptoms begin, your health care provider will monitor your condition (active surveillance or watchful waiting). Treatment for this condition will depend on the severity of your condition. Treatment may include: Observation and yearly exams. This may be the only treatment needed if your condition and symptoms are mild. Medicines to relieve your symptoms, including: ?Medicines to shrink the prostate. ?Medicines to relax the muscle of the prostate. Surgery in severe cases. Surgery may include: ?Prostatectomy. In this procedure, the prostate tissue is removed completely through an open incision or with a laparoscope or robotics. ?Transurethral resection of the prostate (TURP). In this procedure, a tool is inserted through the opening at the tip of the penis (urethra). It is used to cut away tissue of the inner core of the prostate. The pieces are removed through the same opening of the penis. This removes the blockage. ?Transurethral incision (TUIP). In this procedure, small cuts are made in the prostate. This lessens the prostate's pressure on the urethra. ?Transurethral microwave thermotherapy (TUMT). This procedure uses microwaves to create heat. The heat destroys and removes a small amount of prostate tissue. ?Transurethral needle ablation (TUNA). This procedure uses radio frequencies to destroy and remove a small amount of prostate tissue. ?Interstitial laser coagulation (ILC). This procedure uses a laser to destroy and remove a small amount of prostate tissue. ?Transurethral electrovaporization (TUVP). This procedure uses electrodes to destroy and remove a small amount of prostate tissue. ?Prostatic urethral lift. This procedure inserts an implant to push the lobes of the prostate away from the urethra. Follow these instructions at home: Take njto-waj-voucvkh and prescription medicines only as told by your health care provider. Monitor your symptoms for any changes. Contact your health care provider with any changes. Avoid drinking large amounts of liquid before going to bed or out in public. Avoid or reduce how much caffeine or alcohol you drink. Give yourself time when you urinate. Keep all follow-up visits. This is important. Contact a health care provider if: You have unexplained back pain. Your symptoms do not get better with treatment. You develop side effects from the medicine you are taking. Your urine becomes very dark or has a bad smell. Your lower abdomen becomes distended and you have trouble passing urine. Get help right away if: You have a fever or chills. You suddenly cannot urinate. You feel light-headed or very dizzy, or you faint. There are large amounts of blood or clots in your urine. Your urinary problems become hard to manage. You develop moderate to severe low back or flank pain. The flank is the side of your body between the ribs and the hip. These symptoms may be an emergency. Get help right away. Call 911. Do not wait to see if the symptoms will go away. Do not drive yourself to the hospital. Summary Benign prostatic hyperplasia (BPH) is an enlarged prostate that is caused by the normal aging process. It is not caused by cancer. An enlarged prostate can press on the urethra. This can make it hard to pass urine. This condition is more likely to develop in men older than 50 years. Get help right away if you suddenly cannot urinate. This information is not intended to replace advice given to you by your health care provider. Make sure you discuss any questions you have with your health care provider. Document Revised: 09/10/2021 Document Reviewed: 09/10/2021 [employer] Patient Education 2022 [employer]2020. Follow Up Care 10/07/2022 09:26:45 With:Mo LEIJA, AKILAH Smith, URO Address: When: Unknown [facility] 11-10-2022 Evaluation note Encounter Date Diagnosis Assessment Notes Nov, Carotid stenosis, left (ICD-10 - I65.22) Nov, Other Cerebrovascular occlusive disease He has an excellent result after left TCAR. He can discontinue his Plavix at this time due to the severity of bruising which has been quite a problem for him. He will continue aspirin and pravastatin. Repeat duplex examination will be performed November 2023 Abdominal aortic aneurysm He will be due for his follow-up imaging in May 2023 which will be his next visit back here in the office with a CT scan. [employer] Other 08-02-2023 Hospital Discharge instructions Patient Education 10/07/2022 09:24:07 Benign Prostatic Hyperplasia Benign Prostatic Hyperplasia Benign prostatic hyperplasia (BPH) is an enlarged prostate gland that is caused by the normal agingprocess. The prostate may get bigger as a man gets older. The condition is not caused by cancer. The prostate is a walnut-sized gland that is involved in the production of semen. It is located in front of the rectum and below the bladder. The bladder stores urine. The urethra carries stored urine ou t of the body. An enlarged prostate can press on the urethra. This can make it harder to pass urine. The buildup of urine in the bladder can cause infection. Back pressure and infection may progress to bladder damage and kidney (renal) failure. What are the causes? This condition is part of the normal aging process. However, not all men develop problems from thiscondition. If the prostate enlarges away from the urethra, urine flow will not be blocked. If it enlarges toward the urethra and compresses it, there will be problems passing urine. What increases the risk? This condition is more likely to develop in men older than 50 years. What are the signs or symptoms? Symptoms of this condition include: Getting up often during the night to urinate. Needing to urinate frequently during the day. Difficulty starting urine flow. Decrease in size and strength of your urine stream. Leaking (dribbling) after urinating. Inability to pass urine. This needs immediate treatment. Inability to completely empty your bladder. Pain when you pass urine. This is more common if there is also an infection. Urinary tract infection (UTI). How is this diagnosed? This condition is diagnosed based on your medical history, a physical exam, and your symptoms. Tests will also be done, such as: A post-void bladder scan. This measures any amount of urine that may remain in your bladder after you finish urinating. A digital rectal exam. In a rectal exam, your health care provider checks your prostate by putting a lubricated, gloved finger into your rectum to feel the back of your prostate gland. This exam detects the size of your gland and any abnormal lumps or growths. An exam of your urine (urinalysis). A prostate specific antigen (PSA) screening. This is a blood test used to screen for prostate cancer. An ultrasound. This test uses sound waves to electronically produce a picture of your prostate gland. Your health care provider may refer you to a specialist in kidney and prostate diseases (urologist). How is this treated? Once symptoms begin, your health care provider will monitor your condition (active surveillance or watchful waiting). Treatment for this condition will depend on the severity of your condition. Treatment may include: Observation and yearly exams. This may be the only treatment needed if your condition and symptoms are mild. Medicines to relieve your symptoms, including: ?Medicines to shrink the prostate. ?Medicines to relax the muscle of the prostate. Surgery in severe cases. Surgery may include: ?Prostatectomy. In this procedure, the prostate tissue is removed completely through an open incision or with a laparoscope or robotics. ?Transurethral resection of the prostate (TURP). In this procedure, a tool is inserted through the opening at the tip of the penis (urethra). It is used to cut away tissue of the inner core of the prostate. The pieces are removed through the same opening of the penis. This removes the blockage. ?Transurethral incision (TUIP). In this procedure, small cuts are made in the prostate. This lessens the prostate's pressure on the urethra. ?Transurethral microwave thermotherapy (TUMT). This procedure uses microwaves to create heat. The heat destroys and removes a small amount of prostate tissue. ?Transurethral needle ablation (TUNA). This procedure uses radio frequencies to destroy and remove a small amount of prostate tissue. ?Interstitial laser coagulation (ILC). This procedure uses a laser to destroy and remove a small amount of prostate tissue. ?Transurethral electrovaporization (TUVP). This procedure uses electrodes to destroy and remove a small amount of prostate tissue. ?Prostatic urethral lift. This procedure inserts an implant to push the lobes of the prostate away from the urethra. Follow these instructions at home: Take oayz-esh-bidpxom and prescription medicines only as told by your health care provider. Monitor your symptoms for any changes. Contact your health care provider with any changes. Avoid drinking large amounts of liquid before going to bed or out in public. Avoid or reduce how much caffeine or alcohol you drink. Give yourself time when you urinate. Keep all follow-up visits. This is important. Contact a health care provider if: You have unexplained back pain. Your symptoms do not get better with treatment. You develop side effects from the medicine you are taking. Your urine becomes very dark or has a bad smell. Your lower abdomen becomes distended and you have trouble passing urine. Get help right away if: You have a fever or chills. You suddenly cannot urinate. You feel light-headed or very dizzy, or you faint. There are large amounts of blood or clots in your urine. Your urinary problems become hard to manage. You develop moderate to severe low back or flank pain. The flank is the side of your body between the ribs and the hip. These symptoms may be an emergency. Get help right away. Call 911. Do not wait to see if the symptoms will go away. Do not drive yourself to the hospital. Summary Benign prostatic hyperplasia (BPH) is an enlarged prostate that is caused by the normal aging process. It is not caused by cancer. An enlarged prostate can press on the urethra. This can make it hard to pass urine. This condition is more likely to develop in men older than 50 years. Get help right away if you suddenly cannot urinate. This information is not intended to replace advice given to you by your health care provider. Make sure you discuss any questions you have with your health care provider. Document Revised: 09/10/2021 Document Reviewed: 09/10/2021 [employer] Patient Education 2022 [employer]2020. Follow Up Care 07/28/2022 10:29:31 With:Mo LEIJA, AKILAH Smith, URO Address: When:Within 3 Day(s) [facility] 05-30-2023 Evaluation note* Encounter Date Diagnosis Assessment Notes Treatment Notes Treatment Clinical Notes July, Carotid stenosis, left (ICD-10 - I65.22) July, Other Carotid stenosi s status post TCAR He seems to be recovering nicely at this time. He has had 3 surgeries within the past year and is not a surprise that he feels somewhat tired and worn out. I will bring him back when he is 3 months postoperative and will perform a duplex examination. If he has a good ultrasound examination at that time he is interested in discontinuing the Plavix to reduce the amount of bruising he is suffering. I will see him back at that time and we will revisit that issue. Seems likely that his swallowing complaints were due to airway management intraoperatively or perhaps due to hematoma that he says was present for a couple of weeks. These have resolved. [employer] Other 05-04-2023 Discharge summary Author Raul Quan [facility] July 09, 2022 12:08pm Note Date/Time July 09, 2022 8:07am [facility] [address] [place] [address] Discharge Summary Signed Patient: Chico Baker MR#: [id number] : 1940 Acct:[id number] Age/Sex: 82 / M Adm Date: 3 Loc: Room: [address] [place] [address]: Raul Quan MD Copies to: DO Tamar Frias APRN Jeffrey L Buehrer, MD~ Providers Date of Discharge: 07/09/22 Discharging Provider: Raul Quan Additional Discharging Provider: Tamar Perea Primary Care Provider: Shailesh Dunham Consults: 07/08/22 07:07 Consult to Dietitian Routine Discharge Diagnosis (1) Left carotid stenosis: Final Diagnosis Final Discharge Diagnosis: same Summary Hospital Course Hospital course: Patient underwent left transcarotid arterial revascularization yesterday for greater than 70% left internal carotid artery stenosis. His procedure went welland he has had no postoperative complications. This morning he denies any hemispheric symptoms whatsoever. He tells me he has a good appetite this morning and is anxiously awaiting his breakfast. He did have a little bit of dinner last night and is chewing and swallowing with ease. He does report some left neck pain at the site of the incision. He tells me this morning he just feels worn out . He denies any chest pain or shortness of breath. Denies any headache. He did not get much sleep here in the hospital last night as he could not get comfortable. He denies any issues or concerns for me this morning and states readiness for discharge home. He has been up and moving a bit this morning to the bedside chair and had his breakfast and is feeling pretty good overall. He will continue on his dual antiplatelet and statin medications I will see him in the office in about 3 weeks. He knows to call us with any issues or concerns. Time Spent with Patient Time spent providing/coordinating discharge services (# min): 20 Surgeries and Procedures Operation Date: 07/08/22 08:30 Actual Procedures p OR Left TCAR(Left) - Raul Quan MD Diagnostic Studies Completed and Pending Studies Labs on day of discharge: 07/08/22 09:27: Activated Clotting Time 335 H 07/08/22 09:01: Activated Clotting Time 143 H 07/08/22 06:50: Blood Type A Positive, Antibody Screen Negative Exam Physical Exam Vital Signs: Temp Pulse Resp BP Pulse Ox O2 Del Method O2 Flow Rate 98.5 F 65 18 148/67 H 97 Room Air 8 07/09/22 05:00 07/09/22 07:00 07/09/22 07:00 07/09/22 07:00 07/09/22 07:00 07/09/22 07:00 07/08/22 10:52 Narrative: 82-year-old male, no acute distress. He is resting comfortably in his bed this morning upon my arrival. Vital signs on the bedside monitor are stable. He hasno shortness of breath with conversation today. No facial asymmetry, tongue is midline, neck is supple, no JVD. 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 He has a little bit of edema and ecchymosis around his left neck incision. Right groin puncture site is stable with no palpable hematoma. Femoral pulse easily palpable. Const General: cooperative, comfortable and no acute distress Discharge Plan Discharge Plan Patient Disposition: Home Comment: Rest. Take it easy. May shower tomorrow. Diet: Regular Instructions: Carotid Artery Stenting (DC), Carotid Artery Stenting, Carotid Artery Stenosis (DC), Carotid Artery Disease (DC) Prescriptions: Continued isosorbide mononitrate 30 mg tablet extended release 24 hr 30 mg PO DAILY losartan 25 mg tablet 25 mg PO DAILY Patient Comments: TAKE 1 TABLET BY MOUTH EVERY DAY pravastatin 40 mg tablet 40 mg PO QPM Patient Comments: TAKE 1 TABLET BY MOUTH EVERYDAY IN THE EVENING aspirin 81 mg Tablet,Delayed Release (Dr/Ec) 81 mg PO QHS carvedilol 3.125 mg Tablet 3.125 mg PO BID Rx Instructions: must administer with a meal/food cholecalciferol (vitamin D3) [Vitamin D3] 25 mcg (1,000 unit) Capsule 25 mcg PO BID clopidogrel 75 mg tablet 75 mg PO QAM Patient Comments: TAKE 1 TABLET BY MOUTH EVERY DAY FOR 30 DAYS calcium citrate 250 mg calcium Tablet 600 mg PO BID Follow Up: Raul Quan MD [Active Staff] - 08/04/22 11:15 am (Please call the office to reschedule this appointment if this time does not work for you. Continue taking a daily aspirin, statin, and Plavix medications. Please call with any additional questions or concerns. Thank you.) Documented By: Tamar Perea APRN 07/09/22 0 806 Signed By: <Electronically signed by TOMMIE Perea> 07/09/22 0940 <Electronically signed by MD Raul Quan> 07/09/22 [id number] [facility] Work Phone: [phone]) 602-294905-03-2023 History and physical note Author Raul Quan [facility] July 08, 2022 11:06am Note Date/Time July 08, 2022 11:06a m [facility] [address] [place] [address] Vascular Surgery H&P Signed Patient: Chico Baker MR#: [id number] : 1940 Acct:[id number] Age/Sex: 82 / M Adm Date: 3 Loc: Room: [address] [place] [address] Type: ADM IN Attending Dr: Raul Quan MD Copies to: Shailesh Dunham,DO Raul Quan MD~ Date of Service: 07/08/2022 HPI History of Present Illness Chief complaint: Left carotid stenosis HPI: Mr. Baker is a 82 year old male with diffuse vascular disease. In the past yearhe has undergone endovascular aneurysm repair for an enlarging abdominal aortic aneurysm. He has an asymptomatic greater than 70% stenosis of his left internalcarotid artery and today comes for left TCAR PMFSH Vaccinated for COVID-19?: Yes Medical History (Updated 07/08/22 @ 11:05 by Raul Quan MD) AAA (abdominal aortic aneurysm) Amputation of right index finger partial Decreased vision of right eye pt reports he had bleeding in the back of the eye Elevated cholesterol Femur fracture, right 10/2021-ORIF History of COVID-19 06/2020 Hypertension Kidney stones Murmur Osteoporosis Paget's bone disease Varicose veins of both lower extremities 1 cut left leg Surgical History H/O arthroscopic knee surgery H/O bilateral cataract extraction H/O colonoscopy diverticular disease H/O lithotripsy x2 H/O transurethral resection of prostate H/O vasectomy History of endovascular stent graft for abdominal aortic aneurysm Family History Sister Diabetes Sister Diabetes Brother Heart problem Social History Smoking Status: Former smoker Tobacco Type: cigarettes Substance Use Type: None Substance Abuse Comment: 2-3 alcoholic drinks a day Meds Medications and Allergies Allergies SHALINI Inhibitors Allergy (Verified 07/08/22 06:53) Hives Iodinated Contrast Media [Iodine based Contrast Media] Allergy (Verified 07/08/22 06:53) Hives tetanus immune globulin Allergy (Verified 07/08/22 06:53) Unknown Reaction IVP dye Allergy (Uncoded 05/11/22 11:59) Hives Home Medications isosorbide mononitrate 30 mg tablet,extended release 24 hr 30 mg PO DAILY 02/23/19 [History Confirmed 07/01/22] losartan 25 mg tablet 25 mg PO DAILY 02/04/22 [History Confirmed 07/01/22] pravastatin 40 mg tablet 40 mg PO QPM 02/05/22 [History Confirmed 07/08/22] aspirin 81 mg tablet,delayed release 81 mg PO QHS 07/01/22 [History Confirmed 07/01/22] calcium citrate 600 mg PO BID 07/01/22 [History Confirmed 07/01/22] carvedilol 3.125 mg tablet 3.125 mg PO BID 07/01/22 [History Confirmed 07/01/22] cholecalciferol (vitamin D3) 25 mcg (1,000 unit) capsule (Vitamin D3) 25 mcg PO BID 07/01/22 [History Confirmed 07/01/22] clopidogrel 75 mg tablet 75 mg PO QAM 07/01/22 [History Confirmed 07/01/22] Exam Physical Exam Vital Signs: Temp Pulse Resp BP Pulse Ox O2 Del Method 98.2 F 79 16 152/77 H 98 Room Air 07/08/22 06:56 07/08/22 06:56 07/08/22 06:56 07/08/22 06:56 07/08/22 06:56 07/08/22 06:56 Narrative: Pleasant male in no acute distress interacts appropriately with examiner. Cardiac exam shows regular rate and rhythm no murmurs rubs or gallops. Lungs are clear to auscultation bilaterally. Abdomen is benign. Femoral pulses are palpable bilaterally. Results Labs Labs: Laboratory Results - last 24 hr 07/08/22 07/08/22 06:50 06:50 PT 11.7 INR 1.0 Blood Type A Positive Antibody Screen Negative PT 11.7 Seconds (9.0-12.9) 07/08/22 06:50 A&P - Vascular (1) Left carotid stenosis: Plan: This patient comes for elective left TCAR. Indication is stroke prophylaxis. Risks of stroke and of anesthetic complications were discussed with the patient and his family. They understand and agree to proceed. Code(s): I65.22 - Occlusion and stenosis of left carotid artery Status: Acute Documented By: Raul Quan MD 07/08/22 110 4 Signed By: <Electronically signed by MD Raul Quan> 07/08/22 1106 [facility] Work Phone: 1(960) 912-976704-19-2023 Hospital Discharge instructions Patient Education 06/24/2022 09:42:41 Hematuria, Adult Hematuria, Adult Hematuria is blood in the urine. Blood may be visible in the urine, or it may be identified with a test. This condition can be caused by infections of the bladder, urethra, kidney, or prostate. Otherpossible causes include: Kidney stones. Cancer of the urinary tract. Too much calcium in the urine. Conditions that are passed from parent to child (inherited conditions). Exercise that requires a lot of energy. Infections can usually be treated with medicine, and a kidney stone usually will pass through your urine. If neither of these is the cause of your hematuria, more tests may be needed to identify the cause of your symptoms. It is very important to tell your health care provider about any blood in your urine, even if it ispainless or the blood stops without treatment. Blood in the urine, when it happens and then stops and then happens again, can be a symptom of a very serious condition, including cancer. There is no pain in the initial stages of many urinary cancers. Follow these instructions at home: Medicines Take iqcr-yhr-toitfip and prescription medicines only as told by your health care provider. If you were prescribed an antibiotic medicine, take it as told by your health care provider. Do notstop taking the antibiotic even if you start to feel better. Eating and drinking Drink enough fluid to keep your urine pale yellow. It is recommended that you drink 3 4 quarts (2.83.8 L) a day. If you have been diagnosed with an infection, drinking cranberry juice in addition tolarge amounts of water is recommended. Avoid caffeine, tea, and carbonated beverages. These tend to irritate the bladder. Avoid alcohol because it may irritate the prostate (in males). General instructions If you have been diagnosed with a kidney stone, follow your health care provider's instructions about straining your urine to catch the stone. Empty your bladder often. Avoid holding urine for long periods of time. If you are female: ?After a bowel movement, wipe from front to back and use each piece of toilet paper only once. ?Empty your bladder before and after sex. Pay attention to any changes in your symptoms. Tell your health care provider about any changes or any new symptoms. It is up to you to get the results of any tests. Ask your health care provider, or the department that is doing the test, when your results will be ready. Keep all follow-up visits. This is important. Contact a health care provider if: You develop back pain. You have a fever or chills. You have nausea or vomiting. Your symptoms do not improve after 3 days. Your symptoms get worse. Get help right away if: You develop severe vomiting and are unable to take medicine without vomiting. You develop severe pain in your back or abdomen even though you are taking medicine. You pass a large amount of blood in your urine. You pass blood clots in your urine. You feel very weak or like you might faint. You faint. Summary Hematuria is blood in the urine. It has many possible causes. It is very important that you tell your health care provider about any blood in your urine, even ifit is painless or the blood stops without treatment. Take ottl-vgf-etkauso and prescription medicines only as told by your health care provider. Drink enough fluid to keep your urine pale yellow. This information is not intended to replace advice given to you by your health care provider. Make sure you discuss any questions you have with your health care provider. Document Revised: 10/23/2020 Document Reviewed: 10/23/2020 [employer] Patient Education 2022 [employer]2020. Follow Up Care 04/15/2022 10:15:03 With:Mo LEIJA, AKILAH Smith, URO Address: [address], [place] [phone] When: Unknown [facility] 03-16-2023 Evaluation note* Encounter Date Diagnosis Assessment Notes Treatment Notes Treatment Clinical Notes May, Medicare annual wellness visit, subsequent (ICD-10 - Z00.00) Personalized health advice was given to the beneficiary including a written plan for screenings discussed and provided. Advanced care planning reviewed and/or information given as requested. Additional counseling was provided here today in regards to, [ ]. The above visit was performed by [ ], under direct supervision of [ ]. Document reviewed and amended by provider signed below. May, ASHD (arteriosclerotic heart disease) (ICD-10 - I25.10) This patient is stable without activity related CP, dyspnea or lightheadedness. They are instructed to continue exercise and AHA diet plan. May, Nonrheumatic aortic valve stenosis (ICD-10 - I35.0) Control BP w/ serial Echocardiogram. Discussed TAVR/SAVR when severe. May, IFG (impaired fastin g glucose) (ICD-10 - R73.01) Healthy diet and exercise Yearly A1C May, Hyperlipidemia type II (ICD-10 - E78.01) Diet and exercise with continued statin therapy. May, Occlusion and stenosis of left carotid artery (ICD-10 - I65.22) Continue primary prevention. 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 Walk daily Inspect feet daily for cuts [employer] Other 03-14-2023 Evaluation note* Encounter Date Diagnosis Assessment Notes Treatment Notes Treatment Clinical Notes May, Abdominal aortic aneurysm (AAA) without rupture, unspecified part (ICD-10 - I71.40) Patient has done well after EVAR a few months ago. We reviewed his abdominal CT showing good repair with no evidence of endoleak. We will continue to follow him on a routine basis with repeat CT scan at 1 year. If neither endoleak or AAA enlargement is observed 1 year after EVAR we will then continue annual monitoring with ultrasound imaging going forward. May, Carotid stenosis, left (ICD-10 - I65.22) Patient has known greater than 70% stenosis of the left ICA. He is on good medical therapy with use of aspirin and statin medications. discussed recommendation for transcarotid arterial revascularization procedure. Procedure, risk, benefits were discussed at length along with medical alternatives. Patient wishes to her proceed with left TCAR procedure once he returns from [place] at the end of June beginning of July. We reviewed signs and symptoms of carotid occlusive disease and when would be appropriate to return for further evaluation prior to his next scheduled appointment. We will submit his imaging to [facility] for review and planning for future TCAR. Patient has prescription for Plavix which we will start prior to his TCAR procedure as well. They verbalized understanding of all discussion today, agree with plan, and denies any questions. [employer] Other 03-08-2023 Evaluation note* Encounter Date Diagnosis Assessment Notes Treatment Notes Treatment Clinical Notes May, Carotid stenosis, bilateral (ICD-10 - I65.23) CTA: < 50% right, 80% left [employer] Other 03-08-2023 Evaluation note* Encounter Date Diagnosis Assessment Notes Treatment Notes Treatment Clinical Notes May, Carotid stenosis, bilateral (ICD-10 - I65.23) CTA: < 50% right, 70% left - 05/2022 [employer] Other 02-08-2023 Hospital Discharge instructions Patient Education 04/15/2022 09:50:14 Prostatitis Prostatitis Prostatitis is swelling or inflammation of the prostate gland. The prostate is a walnut-sized glandthat is involved in the production of semen. It is located below a man's bladder, in front of the rectum. There are four types of prostatitis: Chronic nonbacterial prostatitis. This is the most common type of prostatitis. It may be associatedwith a viral infection or autoimmune disorder. Acute bacterial prostatitis. This is the least common type of prostatitis. It starts quickly and isusually associated with a bladder infection, high fever, and shaking chills. It can occur at any age. Chronic bacterial prostatitis. This type usually results from acute bacterial prostatitis that happens repeatedly (is recurrent) or has not been treated properly. It can occur in men of any age but is most common among middle-aged men whose prostate has begun to get larger. The symptoms are not as severe as symptoms caused by acute bacterial prostatitis. Prostatodynia or chronic pelvic pain syndrome (CPPS). This type is also called pelvic floor disorder. It is associated with increased muscular tone in the pelvis surrounding the prostate. What are the causes? Bacterial prostatitis is caused by infection from bacteria. Chronic nonbacterial prostatitis may becaused by: Urinary tract infections (UTIs). Nerve damage. A response by the body s disease-fighting system (autoimmune response). Chemicals in the urine. The causes of the other types of prostatitis are usually not known. What are the signs or symptoms? Symptoms of this condition vary depending upon the type of prostatitis. If you have acute bacterialprostatitis, you may experience: Urinary symptoms, such as: ?Painful urination. ?Burning during urination. ?Frequent and sudden urges to urinate. ?Inability to start urinating. ?A weak or interrupted stream of urine. Vomiting. Nausea. Fever. Chills. Inability to empty the bladder completely. Pain in the: ?Muscles or joints. ?Lower back. ?Lower abdomen. If you have any of the other types of prostatitis, you may experience: Urinary symptoms, such as: ?Sudden urges to urinate. ?Frequent urination. ?Difficulty starting urination. ?Weak urine stream. ?Dribbling after urination. Discharge from the urethra. The urethra is a tube that opens at the end of the penis. Pain in the: ?Testicles. ?Penis or tip of the penis. ?Rectum. ?Area in front of the rectum and below the scrotum (perineum). Problems with sexual function. Painful ejaculation. Bloody semen. How is this diagnosed? This condition may be diagnosed based on: A physical and medical exam. Your symptoms. A urine test to check for bacteria. An exam in which a health care provider uses a finger to feel the prostate (digital rectal exam). A test of a sample of semen. Blood tests. Ultrasound. Removal of prostate tissue to be examined under a microscope (biopsy). Tests to check how your body handles urine (urodynamic tests). A test to look inside your bladder or urethra (cystoscopy). How is this treated? Treatment for this condition depends on the type of prostatitis. Treatment may involve: Medicines to relieve pain or inflammation. Medicines to help relax your muscles. Physical therapy. Heat therapy. Techniques to help you control certain body functions (biofeedback). Relaxation exercises. Antibiotic medicine, if your condition is caused by bacteria. Warm water baths (sitz baths). Sitz baths help with relaxing your pelvic floor muscles, which helpsto relieve pressure on the prostate. Follow these instructions at home: Take targ-rro-bvcnhzv and prescription medicines only as told by your health care provider. If you were prescribed an antibiotic, take it as told by your health care provider. Do not stop taking the antibiotic even if you start to feel better. If physical therapy, biofeedback, or relaxation exercises were prescribed, do exercises as instructed. Take sitz baths as directed by your health care provider. For a sitz bath, sit in warm water that is deep enough to cover your hips and buttocks. Keep all follow-up visits as told by your health care provider. This is important. Contact a health care provider if: Your symptoms get worse. You have a fever. Get help right away if: You have chills. You feel nauseous. You vomit. You feel light-headed or feel like you are going to faint. You are unable to urinate. You have blood or blood clots in your urine. This information is not intended to replace advice given to you by your health care provider. Make sure you discuss any questions you have with your health care provider. Document Released: 02/19/2001 Document Revised: 05/07/2018 Document Reviewed: 11/12/2016 [employer] Patient Education 2020 [employer]2020. Follow Up Care 02/11/2022 10:55:52 With:Mo LEIJA, AKILAH Smith, URO Address: When: Unknown [facility] 02-07-2023 Evaluation note* Encounter Date Diagnosis Assessment Notes Treatment Notes Treatment Clinical Notes Apr, Primary hypertension (ICD-10 - I10) [employer] Other 01-03-2023 Evaluation note* Encounter Date Diagnosis Assessment Notes Treatment Notes Treatment Clinical Notes Mar, Left-sided extracranial carotid artery stenosis (ICD-10 - I65.22) Mar, Abdominal aortic aneurysm (AAA) 3.0 cm to 5.5 cm in diameter in male (ICD-10 - I71.40) Mar, Other Left carotid stenosis 's duplex examination suggests a high-grade left internal carotid artery stenosis with a peak systolic velocity of 321 cm/s and end-diastolic velocity of 56 cm/s. At this time he does not have hemispheric symptoms and is on medical therapy. We will proceed with CT angiogram to evaluate him for TCAR. Abdominal aortic aneurysm status post aneurysm repair No apparent perioperative complications at this time. He will be due for CT scan for follow-up in 2 months and will arrange for the carotid and abdominal procedures to perform simultaneously to minimize contrast exposure. [employer] Other 12-21-2022 Hospital Discharge instructions Patient Education 02/25/2022 12:02:33 Rash, Adult, Mtrk-nz-Hdig Rash, Adult A rash is a change in the color of your skin. A rash can also change the way your skin feels. Thereare many different conditions and factors that can cause a rash. Follow these instructions at home: The goal of treatment is to stop the itching and keep the rash from spreading. Watch for any changes in your symptoms. Let your doctor know about them. Follow these instructions to help with your condition: Medicine Take or apply sihh-bqr-zrgqtse and prescription medicines only as told by your doctor. These may include medicines: To treat red or swollen skin (corticosteroid creams). To treat itching. To treat an allergy (oral antihistamines). To treat very bad symptoms (oral corticosteroids). Skin care Put cool cloths (compresses) on the affected areas. Do not scratch or rub your skin. Avoid covering the rash. Make sure that the rash is exposed to air as much as possible. Managing itching and discomfort Avoid hot showers or baths. These can make itching worse. A cold shower may help. Try taking a bath with: ?Epsom salts. You can get these at your local pharmacy or grocery store. Follow the instructions onthe package. ?Baking soda. Pour a small amount into the bath as told by your doctor. ?Colloidal oatmeal. You can get this at your local pharmacy or grocery store. Follow the instructions on the package. Try putting baking soda paste onto your skin. Stir water into baking soda until it gets like a paste. Try putting on a lotion that relieves itchiness (calamine lotion). Keep cool and out of the sun. Sweating and being hot can make itching worse. General instructions Rest as needed. Drink enough fluid to keep your pee (urine) pale yellow. Wear loose-fitting clothing. Avoid scented soaps, detergents, and perfumes. Use gentle soaps, detergents, perfumes, and other cosmetic products. Avoid anything that causes your rash. Keep a journal to help track what causes your rash. Write down: ?What you eat. ?What cosmetic products you use. ?What you drink. ?What you wear. This includes jewelry. Keep all follow-up visits as told by your doctor. This is important. Contact a doctor if: You sweat at night. You lose weight. You pee (urinate) more than normal. You pee less than normal, or you notice that your pee is a darker color than normal. You feel weak. You throw up (vomit). Your skin or the whites of your eyes look yellow (jaundice). Your skin: ?Tingles. ?Is numb. Your rash: ?Does not go away after a few days. ?Gets worse. You are: ?More thirsty than normal. ?More tired than normal. You have: ?New symptoms. ?Pain in your belly (abdomen). ?A fever. ?Watery poop (diarrhea). Get help right away if: You have a fever and your symptoms suddenly get worse. You start to feel mixed up (confused). You have a very bad headache or a stiff neck. You have very bad joint pains or stiffness. You have jerky movements that you cannot control (seizure). Your rash covers all or most of your body. The rash may or may not be painful. You have blisters that: ?Are on top of the rash. ?Grow larger. ?Grow together. ?Are painful. ?Are inside your nose or mouth. You have a rash that: ?Looks like purple pinprick-sized spots all over your body. ?Has a bull's eye or looks like a target. ?Is red and painful, causes your skin to peel, and is not from being in the sun too long. Summary A rash is a change in the color of your skin. A rash can also change the way your skin feels. The goal of treatment is to stop the itching and keep the rash from spreading. Take or apply hosa-qah-vcggibw and prescription medicines only as told by your doctor. Contact a doctor if you have new symptoms or symptoms that get worse. Keep all follow-up visits as told by your doctor. This is important. This information is not intended to replace advice given to you by your health care provider. Make sure you discuss any questions you have with your health care provider. Document Released: 08/10/2008 Document Revised: 06/16/2019 Document Reviewed: 09/26/2018 [employer] Patient Education 2020 [employer] Follow Up Care 02/18/2022 14:33:21 With:Ivelisse Hassan Address:Unknown When: Unknown Comments:Appointment has already been scheduled [facility] 12-14-2022 Hospital Discharge instructions Patient Education 02/18/2022 14:20:46 Transurethral Resection of the Prostate Transurethral Resection of the Prostate Transurethral resection of the prostate (TURP) is the removal (resection) of part of the gland thatproduces semen (prostate gland). This procedure is done to treat benign prostatic hyperplasia (BPH). BPH is an abnormal, noncancerous (benign) increase in the number of cells that make up the prostate tissue. BPH causes the prostate to get bigger. The enlarged prostate can push against or block thetube that drains urine from the bladder out of the body (urethra). BPH can affect normal urine flowby causing bladder infections, difficulty controlling bladder function, and difficulty emptying thebladder. The goal of TURP is to remove enough prostate tissue to allow for a normal flow of urine. The procedure will allow you to empty your bladder more completely when you urinate so that you can urinate less often. In a transurethral resection, a thin telescope with a light, a tiny camera, and an electric cuttingedge (resectoscope) is passed through the urethra and into the prostate. The opening of the urethrais at the end of the penis. Tell a health care provider about: Any allergies you have. All medicines you are taking, including vitamins, herbs, eye drops, creams, and oqcl-ghu-wbfargh medicines. Any problems you or family members have had with anesthetic medicines. Any blood disorders you have. Any surgeries you have had. Any medical conditions you have. Any prostate infections you have had. What are the risks? Generally, this is a safe procedure. However, problems may occur, including: Infection. Bleeding. Allergic reactions to medicines. Damage to other structures or organs, such as: ?The urethra. ?The bladder. ?Muscles that surround the prostate. Difficulty getting an erection. Inability to control when you urinate (incontinence). Scarring, which may cause problems with urine flow. What happens before the procedure? Medicines Ask your health care provider about: Changing or stopping your regular medicines. This is especially important if you are taking diabetes medicines or blood thinners. Taking medicines such as aspirin and ibuprofen. These medicines can thin your blood. Do not take these medicines unless your health care provider tells you to take them. Taking qqqo-pov-rgtyrih medicines, vitamins, herbs, and supplements. Eating and drinking Follow instructions from your health care provider about eating and drinking, which may include: 8 hours before the procedure stop eating heavy meals or foods, such as meat, fried foods, or fatty foods. 6 hours before the procedure stop eating light meals or foods, such as toast or cereal. 6 hours before the procedure stop drinking milk or drinks that contain milk. 2 hours before the procedure stop drinking clear liquids. Staying hydrated Follow instructions from your health care provider about hydration, which may include: Up to 2 hours before the procedure you may continue to drink clear liquids, such as water, clear fruit juice, black coffee, and plain tea. General instructions You may have a physical exam. You may have a blood or urine sample taken. Ask your health care provider what steps will be taken to help prevent infection. These may include: ?Washing skin with a germ-killing soap. ?Taking antibiotic medicine. Plan to have someone take you home from the hospital or clinic. You may not be able to drive for upto 10 days after your procedure. Plan to have a responsible adult care for you for at least 24 hours after you leave the hospital orclinic. This is important. What happens during the procedure? An IV will be inserted into one of your veins. You will be given one or more of the following: ?A medicine to help you relax (sedative). ?A medicine to make you fall asleep (general anesthetic). ?A medicine that is injected into your spine to numb the area below and slightly above the injection site (spinal anesthetic). Your legs will be placed in foot rests (stirrups) so that your legs are apart and your knees are bent. The resectoscope will be passed through your urethra to your prostate. Parts of your prostate will be resected using the cutting edge of the resectoscope. The resectoscope will be removed. A small, thin tube (catheter) will be passed through your urethra and into your bladder. The catheter will drain urine into a bag outside of your body. ?Fluid may be passed through the catheter to keep the catheter open. The procedure may vary among health care providers and hospitals. What happens after the procedure? Your blood pressure, heart rate, breathing rate, and blood oxygen level will be monitored until youleave the hospital or clinic. You may continue to receive fluids and medicines through an IV. You may have some pain. Pain medicine will be available to help you. You will have a catheter draining your urine. ?You may have blood in your urine. Your catheter may be kept in until your urine is clear. ?Your urinary drainage will be monitored. If necessary, your bladder may be rinsed out (irrigated) through your catheter. You will be encouraged to walk around as soon as possible. You may have to wear compression stockings. These stockings help prevent blood clots and reduce swelling in your legs. Do not drive for 24 hours if you were given a sedative during your procedure. Summary Transurethral resection of the prostate (TURP) is the removal (resection) of part of the gland thatproduces semen (prostate gland). The goal of this procedure is to remove enough prostate tissue to allow for a normal flow of urine. Follow instructions from your health care provider about taking medicines and about eating and drinking before the procedure. This information is not intended to replace advice given to you by your health care provider. Make sure you discuss any questions you have with your health care provider. Document Released: 02/22/2006 Document Revised: 06/14/2019 Document Reviewed: 11/23/2018 [employer] Patient Education 2019 [employer]2020. Follow Up Care 02/17/2022 16:33:06 With:ARASH BUCHANAN, IVA Ellis, URL Address: [address] [place] [address] [id number] When:02/25/2022 [facility] 12-07-2022 Hospital Discharge instructions Patient Education 02/11/2022 10:50:27 Prostatitis Prostatitis Prostatitis is swelling or inflammation of the prostate gland. The prostate is a walnut-sized glandthat is involved in the production of semen. It is located below a man's bladder, in front of the rectum. There are four types of prostatitis: Chronic nonbacterial prostatitis. This is the most common type of prostatitis. It may be associatedwith a viral infection or autoimmune disorder. Acute bacterial prostatitis. This is the least common type of prostatitis. It starts quickly and isusually associated with a bladder infection, high fever, and shaking chills. It can occur at any age. Chronic bacterial prostatitis. This type usually results from acute bacterial prostatitis that happens repeatedly (is recurrent) or has not been treated properly. It can occur in men of any age but is most common among middle-aged men whose prostate has begun to get larger. The symptoms are not as severe as symptoms caused by acute bacterial prostatitis. Prostatodynia or chronic pelvic pain syndrome (CPPS). This type is also called pelvic floor disorder. It is associated with increased muscular tone in the pelvis surrounding the prostate. What are the causes? Bacterial prostatitis is caused by infection from bacteria. Chronic nonbacterial prostatitis may becaused by: Urinary tract infections (UTIs). Nerve damage. A response by the body s disease-fighting system (autoimmune response). Chemicals in the urine. The causes of the other types of prostatitis are usually not known. What are the signs or symptoms? Symptoms of this condition vary depending upon the type of prostatitis. If you have acute bacterialprostatitis, you may experience: Urinary symptoms, such as: ?Painful urination. ?Burning during urination. ?Frequent and sudden urges to urinate. ?Inability to start urinating. ?A weak or interrupted stream of urine. Vomiting. Nausea. Fever. Chills. Inability to empty the bladder completely. Pain in the: ?Muscles or joints. ?Lower back. ?Lower abdomen. If you have any of the other types of prostatitis, you may experience: Urinary symptoms, such as: ?Sudden urges to urinate. ?Frequent urination. ?Difficulty starting urination. ?Weak urine stream. ?Dribbling after urination. Discharge from the urethra. The urethra is a tube that opens at the end of the penis. Pain in the: ?Testicles. ?Penis or tip of the penis. ?Rectum. ?Area in front of the rectum and below the scrotum (perineum). Problems with sexual function. Painful ejaculation. Bloody semen. How is this diagnosed? This condition may be diagnosed based on: A physical and medical exam. Your symptoms. A urine test to check for bacteria. An exam in which a health care provider uses a finger to feel the prostate (digital rectal exam). A test of a sample of semen. Blood tests. Ultrasound. Removal of prostate tissue to be examined under a microscope (biopsy). Tests to check how your body handles urine (urodynamic tests). A test to look inside your bladder or urethra (cystoscopy). How is this treated? Treatment for this condition depends on the type of prostatitis. Treatment may involve: Medicines to relieve pain or inflammation. Medicines to help relax your muscles. Physical therapy. Heat therapy. Techniques to help you control certain body functions (biofeedback). Relaxation exercises. Antibiotic medicine, if your condition is caused by bacteria. Warm water baths (sitz baths). Sitz baths help with relaxing your pelvic floor muscles, which helpsto relieve pressure on the prostate. Follow these instructions at home: Take psfd-unz-enlzyam and prescription medicines only as told by your health care provider. If you were prescribed an antibiotic, take it as told by your health care provider. Do not stop taking the antibiotic even if you start to feel better. If physical therapy, biofeedback, or relaxation exercises were prescribed, do exercises as instructed. Take sitz baths as directed by your health care provider. For a sitz bath, sit in warm water that is deep enough to cover your hips and buttocks. Keep all follow-up visits as told by your health care provider. This is important. Contact a health care provider if: Your symptoms get worse. You have a fever. Get help right away if: You have chills. You feel nauseous. You vomit. You feel light-headed or feel like you are going to faint. You are unable to urinate. You have blood or blood clots in your urine. This information is not intended to replace advice given to you by your health care provider. Make sure you discuss any questions you have with your health care provider. Document Released: 02/19/2001 Document Revised: 05/07/2018 Document Reviewed: 11/12/2016 [employer] Patient Education 2020 [employer]2020. Follow Up Care 01/28/2021 10:15:04 With:Mo LEIJA, AKILAH Smith, URO Address: When:6 weeks [facility] 12-01-2022 Discharge summary Author Raul Quan [facility] February 05, 2022 10:08am Note Date/Time February 05, 2022 7 :52am [facility] [address] [place] [id number] Discharge Summary Signed Patient: Chico Baker MR#: [id number] : 1940 Acct:[id number] Age/Sex: 81 / M Adm Date: 2 Loc: 4N Room: [id number]: Raul Quan MD Copies to: DO Tamar Frias, TOMMIE Quan MD~ Providers Date of Discharge: 02/05/22 Discharging Provider: Tamar Perea Additional Discharging Provider: Tamar Perea Primary Care Provider: Shailesh Dunham Discharge Diagnosis (1) AAA (abdominal aortic aneurysm): Final Diagnosis Final Discharge Diagnosis: same Summary Hospital Course Hospital course: Patient presented yesterday for percutaneous endovascular aneurysm repair due toabdominal aortic aneurysm which had been increasing in size. He has had no postoperative complications overnight. This morning he denies any abdominal pain, flank pain, back pain. He tells me he had a good dinner last night and has a good appetite this morning and is anxiously awaiting his breakfast. He has been up and about moving around in his room and been back and forth to the bathroom a couple of times. He denies any bowel or bladder concerns. He deniesany pain. He denies any concerns or complaints whatsoever and he states readiness for discharge home. Condition Condition at Discharge: Stable Time Spent with Patient Time spent providing/coordinating discharge services (# min): 25 Surgeries and Procedures Operation Date: 02/04/22 10:00 Actual Procedures p OR Percutaneous EVAR AAA(Not Applicable) - Raul Quan MD Complications Complications: none Diagnostic Studies Completed and Pending Studies Labs on day of discharge: 02/05/22 06:09: PHA Creatinine Clear 57.50, Sodium 135 L, Potassium 4.6, Chloride 101, Carbon Dioxide 28.2, Anion Gap 10.4, BUN 11, Creatinine 0.94, Est GFR ( Amer) > 60, Est GFR (Non-Af Amer) > 60, Glucose 109 H, Calcium 8.4 02/05/22 06:09: Corrected WBC 10.3, Uncorrected WBC Count 10.3, RBC 3.77 L, Hgb 11.4 L, Hct 34.6 L, MCV 91.6, MCH 30.1, MCHC 32.9, RDW 13.8, Plt Count 142 L D, MPV 7.9, Neut % (Auto) 69.5, Lymph % (Auto) 14.4, [place] % (Auto) 14.8, Eos % (Auto) 0.7, Baso % (Auto) 0.6, Nucleat RBC Rel Count 0.1, Neut # (Auto) 7.1, Lymph # (Auto) 1.5, [place] # (Auto) 1.5 H, Eos # (Auto) 0.1, Baso # (Auto) 0.1 02/04/22 08:25: Corrected WBC 9.3, Uncorrected WBC Count 9.3, RBC 4.10, Hgb 12.4L, Hct 37.5 L, MCV 91.5, MCH 30.2, MCHC 33.0, RDW 13.7, Plt Count 198, MPV 8.5, Neut % (Auto) 70.1, Lymph % (Auto) 16.4, [place] % (Auto) 12.0, Eos % (Auto) 0.9, Baso % (Auto) 0.6, Nucleat RBC Rel Count 0.0, Neut # (Auto) 6.5, Lymph # (Auto) 1.5, [place] # (Auto) 1.1 H, Eos # (Auto) 0.1, Baso # (Auto) 0.1 02/04/22 08:25: Blood Type A Positive, Antibody Screen Positive, Antibody Identification Nonspecific Cold Antibody, ASHLEY, Polyspecific Negative, Pathology Review Sent to pathology 02/04/22 08:25: PHA Creatinine Clear 66.73, Sodium 135 L, Potassium 4.3, Chloride 101, Carbon Dioxide 24.4, Anion Gap 13.9, BUN 14, Creatinine 0.81, Est GFR ( Amer) > 60, Est GFR (Non-Af Amer) > 60, Glucose 124 H, Calcium 9.0 Exam Physical Exam Vital Signs: Temp Pulse Resp BP Pulse Ox O2 Del Method O2 Flow Rate 99.6 F H 80 16 137/68 96 Room Air 6 02/05/22 03:17 02/05/22 03:17 02/05/22 03:17 02/05/22 03:17 02/05/22 03:17 02/05/22 03:17 02/04/22 11:43 Narrative: 81-year-old male, no acute distress. He is alert and oriented x3. Heis resting comfortably in his bed this morning awaiting his breakfast. His heart shows regular rate and rhythm, he does have a grade 2 systolic murmur which she states is his normal. Lungs are clear throughout bilaterally. He hasno shortness of breath with conversation today. His abdomen is soft, nontender,nondistended. Bowel sounds normoactive. Bilateral groin puncture sites are stable with no visible ecchymosis and no palpable hematoma. Bilateral feet are warm and well-perfused. Const General: cooperative, comfortable and no acute distress Discharge Plan Discharge Plan Patient Disposition: Home Comment: Rest. Take it easy. Avoid heavy lifting x 2 weeks. Diet: Regular Instructions: Abdominal Aortic Aneurysm, Aortic Aneurysm Repair, Aortic Aneurysm Repair (DC), Aortic Aneurysm (DC) Prescriptions: Continued carvedilol 12.5 mg tablet 12.5 mg PO BID isosorbide mononitrate 30 mg tablet extended release 24 hr 30 mg PO DAILY aspirin 81 mg Tablet,Chewable 81 mg PO DAILY cholecalciferol (vitamin D3) [Vitamin D3] 50 mcg (2,000 unit) Capsule 50 mcg PO DAILY losartan 25 mg tablet 25 mg PO DAILY Label Comments: TAKE 1 TABLET BY MOUTH EVERY DAY pravastatin 40 mg tablet 40 mg PO QPM Label Comments: TAKE 1 TABLET BY MOUTH EVERYDAY IN THE EVENING Follow Up: Raul Quan MD [Active Staff] - 03/10/22 10:30 am (Please call the office to reschedule if this time does not work for you. Thank you.) Documented By: Tamar Perea APRN 02/05/22 0 749 Signed By: <Electronically signed by TOMMIE Perea> 02/05/22 0753 <Electronically signed by MD Raul Quan> 02/05/22 1000 [facility] Work Phone: [phone]) 701-388011-15-2022 Evaluation note* Encounter Date Diagnosis Assessment Notes Treatment Notes Treatment Clinical Notes Jan, Abdominal aortic aneurysm (AAA) 3.0 cm to 5.5 cm in diameter in male (ICD-10 - I71.40) Jan, Left carotid stenosis (ICD-10 - I65.22) Jan, Other Abdominal aorti c aneurysm This patient will undergo percutaneous endovascular aneurysm repair. Nature of the procedure was described in detail to the patient and his family member. Asymptomatic carotid stenosis greater than 70% When his aneurysm repair is complete we will evaluate him for left TCAR. [employer] Other 10-31-2022 Evaluation note* Encounter Date Diagnosis Assessment Notes Treatment Notes Treatment Clinical Notes Dec, Abdominal aortic aneurysm (AAA) 3.0 cm to 5.5 cm in diameter in male (ICD-10 - I71.40) Dec, Carotid stenosis, left (ICD-10 - I65.22) Dec, Other Abdominal aorti c aneurysm This patient will undergo percutaneous endovascular aneurysm repair. He does have some iliac calcification that may affect graft delivery. The femoral arteries have some calcification but appear acceptable for percutaneous intervention. Left internal carotid artery stenosis He will undergo a CT angiogram of the carotid arteries to better define the height of the bifurcation and quality of the common carotid arteries. Hopefully he will have adequate anatomy for TCAR to minimize the magnitude of his surgical intervention. He will delay starting Plavix until his aneurysm is complete and CT confirms candidacy for TCAR [employer] Other 09-19-2022 Evaluation note* Encounter Date Diagnosis Assessment Notes Treatment Notes Treatment Clinical Notes Nov, AAA (abdominal aortic aneurysm) without rupture (ICD-10 - I71.4) This patient is still recovering from his recent orthopedic procedures. He continues with physical therapy and although he is getting stronger, he remains quite fatigued and weak yet. 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 We will give him a few more weeks of physical therapy and have him back in a month or so to reschedule his AAA. He did tell me that he had some abdominal pain while in the group home facility and was taken to the [place] where a CT of the abdomen was obtained. We will get these studies pushed over for review and comparison. He denies any abdominal pain today and tells me his appetite is pretty good. He knows to call us in the meantime with any issues. [employer] Other 07-26-2022 Evaluation note* Encounter Date Diagnosis Assessment Notes Treatment Notes Treatment Clinical Notes Sep, Pre-op testing (ICD-10 - Z01.818) Sep, AAA (abdominal aortic aneurysm) without rupture (ICD-10 - I71.4) We reviewed recent CT findings indicating fusiform infrarenal abdominal aortic aneurysm measuring 5.2 x 5.[address] Quan in room to discuss further with him recommendation for endovascular aneurysm repair for enlarging aneurysm. Procedure, risk, benefits were discussed at length and all of their questions were addressed. Consent was obtained. We will plan for EVAR repair of this patient's AAA in the near future. Patient verbalizes understanding of all discussion, agrees with this plan, denies any questions. [employer] Other 07-11-2022 Evaluation note* Encounter Date Diagnosis Assessment Notes Treatment Notes Treatment Clinical Notes Sep, Peripheral artery disease (ICD-10 - I73.9) This patient does report some symptoms of intermittent claudication but he denies any ischemic rest pain or nonhealing ulcerations. He does stay quite active and tells me this is not lifestyle limiting for him. He does take a daily aspirin and cholesterol medication. We will continue to follow him along and manage her medically. He knows to call us in the meantime with any issues. Sep, Abdominal aortic aneurysm (AAA) 3.0 cm to 5.5 cm in diameter in male (ICD-10 - I71.4) We reviewed today's abdominal duplex which shows AAA 5.1 cm in size. This is an increase from his last reported reading which was 4.3 cm. That imaging was not obtained here in our facility. Nonetheless, this patient will need a CTA to further evaluate his AAA. This was discussed at length. The patient tells me that he has an allergy to organic iodine dye in which he developed hives. He will need premedicated. I will discuss this with Dr. Cummins and then we will contact the patient to schedule his testing. He verbalizes understanding of all discussion, agrees with this plan, and denies questions. Sep, Carotid stenosis, bilateral (ICD-10 - I65.23) We reviewed today's carotid duplex studies below which indicate greater than 70% stenosis of the left ICA and less than 50% stenosis of the right ICA. He denies being symptomatic of his carotid occlusive disease on extensive questioning today. He is on good medical therapy with use of aspirin and cholesterol medications daily. He will need a CTA of the head and neck to further delineate any degree of stenosis and determine any further treatment needs based on those studies. The patient tells me that he has an allergy to organic iodine dye in which he developed hives. He will need premedicated. I will discuss this with Dr. Cummins and then we will contact the patient to schedule his testing. He verbalizes understanding of all discussion, agrees with this plan, and denies questions. [employer] Other 07-11-2022 Evaluation note* Encounter Date Diagnosis Assessment Notes Treatment Notes Treatment Clinical Notes Sep, Peripheral artery disease (ICD-10 - I73.9) This patient does report some symptoms of intermittent claudication but he denies any ischemic rest pain or nonhealing ulcerations. He does stay quite active and tells me this is not lifestyle limiting for him. He does take a daily aspirin and cholesterol medication. We will continue to follow him along and manage her medically. He knows to call us in the meantime with any issues. Sep, Abdominal aortic aneurysm (AAA) 3.0 cm to 5.5 cm in diameter in male (ICD-10 - I71.4) We reviewed today's abdominal duplex which shows AAA 5.1 cm in size. This is an increase from his last reported reading which was 4.3 cm. That imaging was not obtained here in our facility. Nonetheless, this patient will need a CTA to further evaluate his AAA. This was discussed at length. The patient tells me that he has an allergy to organic iodine dye in which he developed hives. He will need premedicated. I discussed this case with Dr. Cummins and we will schedule patient for CT of the abdomen to further evaluate his AAA. We will premedicate him with Prednisone and Benadryl prior to receiving his IV contrast. We will get this scheduled in the near future. He verbalizes understanding of all discussion, agrees with this plan, and denies questions. Sep, Carotid stenosis, bilateral (ICD-10 - I65.23) We reviewed today's carotid duplex studies below which indicate greater than 70% stenosis of the left ICA and less than 50% stenosis of the right ICA. He denies being symptomatic of his carotid occlusive disease on extensive questioning today. He is on good medical therapy with use of aspirin and cholesterol medications daily. I discussed this at length with Dr. Cummins and he agrees that since patient is stable and asymptomatic of his carotid occlusive disease. We will start him on good medical therapy with use of daily aspirin, statin, and Plavix medications. We will follow him up in 3 months with repeat duplex studies. We reviewed signs and symptoms of carotid occlusive disease and would not be appropriate to return for further evaluation prior to neck scheduled appointment. He verbalizes understanding of all discussion, agrees with this plan, and denies questions. [employer] Other 05-23-2022 Evaluation note* Encounter Date Diagnosis Assessment Notes Treatment Notes Treatment Clinical Notes July, Abdominal aortic aneurysm (AAA) 3.0 cm to 5.5 cm in diameter in male (ICD-10 - I71.4) July, Stenosis of carotid artery, unspecified laterality (ICD-10 - I65.29) July, Peripheral artery disease (ICD-10 - I73.9) July, Other 1. Abdominal ao rtic aneurysm He is asymptomatic at this time and by physical examination has about a 4.5 cm aneurysm. He will undergo confirmatory abdominal aortic ultrasound since he has not had a study in a year. 2. Carotid stenosis He is asymptomatic at this time and on aspirin and Pravachol. He reports having previous moderate but nonsurgical carotid occlusive disease and has not had a recent follow-up duplex. I will schedule a repeat duplex examination. 3. Peripheral vascular occlusive disease He has mild symptoms that are not lifestyle limiting of bilateral calf claudication and no limb threat. He does have absent pulses on physical examination. When he returns we will get baseline ankle-brachial indices. [employer] Other 10-06-2021 NoteHNO ID: [id number] Author: Power Catherine MD Service: ? Author Type: Physician Type: Progress Notes Filed: 12/11/2020 11:17 AM Note Text: [facility] OUTPATIENT VISIT DATE December 11, 2020 OUTPATIENT VISIT TYPE EST PRIMARY CARE PHYSICIAN: Shailesh Dunham (Jere) [address] [place] [address] REFERRING PHYSICIAN Power Catherine [address] [facility] [address] CHIEF COMPLAINT: Patient presents with: Established Patient Follow Up HISTORY OF PRESENT ILLNESS: Chico Baker was referred for consultation by ?Dr. Dunham. ?Opinions and recommendations in this consultation will be transmitted back to the referring physician by Epic notes or via mail. ? Mr. Baker ?is a?pleasant 80 year old male who is seen today for?folllow up AAA. Last DUS 01/2019 demonstrated it at approximately 4cm. Today's study shows it at 4.4cm. Diagnosed with COVID 06/2020, still recovering due to mild fatigue and decompensation. No other complaints otherwise. Former smoker, 80 pack years, quit ~20 years ago. Denies hx CAD. ? Hx varicose veins, s/p possible stripping on left. He denies that these cause him discomfort. Denies having worn stockings. ? 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 PAST SURGICAL HISTORY Procedure Laterality Date - FINGER AMPUTATION (SPECIFY DIGIT) HX right index - HEART CATHETERIZATION - LITHOTRIPSY COMMON BILE DUCT - PAST SURGICAL HISTORY OF knee - VASECTOMY SOCIAL HISTORY Social History Tobacco Use - Smoking status: Former Smoker Types: Cigarettes - Smokeless tobacco: Never Used Substance Use Topics - Alcohol use: Yes Alcohol/week: 8.3 standard drinks Types: 5 Shots of liquor per week - Drug use: No FAMILY HISTORY Problem Relation Age of Onset - Cancer Brother - Cancer Brother - Diabetes Sister - Hypertension Sister - Hypertension Brother - None Mother - None Father ALLERGIES: ALLERGIES Allergen Reactions - Shalini Inhibitors Unknown - Gadolinium-Containi* Unknown - Tetanus Vaccines An* Unknown MEDICATIONS: pravastatin (PRAVACHOL) 40 mg tablet Take 40 mg by mouth once daily. nitroglycerin sublingual (NITROQUICK) 0.3 mg SL tablet Dissolve 0.3 mg under the tongue every 5 minutes as needed. aspirin, enteric coated (ASPIRIN, ENTERIC COATED) 81 mg EC tablet Take 81 mg by mouth once daily. isosorbide mononitrate ER (IMDUR) 30 mg 24 hr tablet Take 30 mg by mouth once daily. carvedilol (COREG) 12.5 mg tablet Take 12.5 mg by mouth twice daily with meals. doxazosin (CARDURA) 4 mg tablet Take 4 mg by mouth daily at bedtime. REVIEW OF SYSTEMS: GENERAL: no acute distress All other ROS: negative I personally interviewed, confirmed and edited the above information as obtained by others. PHYSICAL EXAMINATION: BP 122/78 (BP Site: Right Arm, BP Position: Sitting, BP Cuff Size: Regular Adult) Pulse 60 Ht 170.2 cm (5' 7 ) Wt 67.6 kg (149 lb) SpO2 98% BMI 23.34 kg/m? General appearance: alert and cooperative individual, in no acute distress. Neck: no bruits Pulmonary: Lungs clear to auscultation bilaterally. Coronary: regular rate Abdomen: negative Upper Extremities: palp bilateral radial pulses Lower Extremities: palp popliteal pulses bilaterally, nonaneurysmal CARDIOVASCULAR MEDICINE TESTING: I have personally reviewed the DUS AAA. IMPRESSION/PLAN: Mr. Baker is a 80 year old male with 4.4 cm AAA. Repeat DUS AAA in 12 months with follow up. Continue statin therapy. ? Power Catherine, [facility]02-11-2021 NotePatient Outreach (COVAMN) CHICO BAKER Abad ([id number]) 1940 M Date Time Provider Department 04/18/20 RONALDSKIMBERLEY During your visit today, we recorded the following information about you: Allergies As of Date: 04/18/2020 Noted Allergy Reaction SHALINI INHIBITORS 05/09/2015 16 - Unknown GADOLINIUM-CONTAINING CONTRAST ME*05/09/2015 16 - Unknown TETANUS VACCINES AND TOXOID 05/16/2015 16 - Unknown Date Reviewed: 10/18/2017 Reviewed by: Power Catherine - Fully Assessed Order(s):SARS-COVID VACCINE 1ST DOSE APPT [[id number]] Order #: [id number] FUTURE Prescriptions as of 04/18/2020 Sig: ASPIRIN 81 MG TABLET,DELAYED * Take 81 mg by mouth once justice* ISOSORBIDE MONONITRATE ER 30 * Take 30 mg by mouth once justice* CARVEDILOL 12.5 MG TABLET Take 12.5 mg by mouth twice d* DOXAZOSIN 4 MG TABLET Take 4 mg by mouth daily at b* Problem List As Of Date: 04/18/2020 (None) Encounter Status:Closed by EPIC, PRODUSER on 04/[facility]20[facility] Evaluation + Plan note Future Appointments Appointment Date:04/15/2022 08:45:00 AM Scheduled Provider:Ivelisse Hassan MD Location:[facility] Appointment Type:URO Office Visit [facility] evaluation + Plan note Future Appointments Appointment Date:04/15/2022 08:45:00 AM Scheduled Provider:Ivelisse Hassan MD Location:[facility] Appointment Type:URO Office Visit Diagnostic Tests Pending * [facility] Appointment Date:02/25/2022 11:00:00 AM Scheduled Provider:IVA ANTOINE PA-C Location:[facility] Appointment Type:URO Office Visit Appointment Date:04/15/2022 08:45:00 AM Scheduled Provider:Ivelisse Hassan MD Location:[facility] Appointment Type:URO Office Visit [facility] evaluation + Plan note Future Appointments Appointment Date:06/24/2022 09:30:00 AM Scheduled Provider:Ivelisse Hassan MD Location:[facility] Appointment Type:URO Office Visit [facility] evaluation + Plan note Future Appointments Appointment Date:01/13/2023 09:00:00 AM Scheduled Provider:Ivelisse Hassan MD Location:[facility] Appointment Type:URO Office Visit [facility] evaluation note* Diagnosis Onset Date Resolution Status AAA (abdominal aortic aneurysm) [facility] Work Phone: Evaluation noteNo assessment information available [facility] Work Phone: Evalulunrm noteNo InformationNort SyMynd Other Evaluation note* Diagnosis Onset Date Resolution Status Left carotid stenosis acute [facility] Work Phone: History general Narrative - Reported* Type Description Date Medical History hypercholesterolemia Medical History abdominal aortic aneurysm Medical History Carotid stenosis Medical History PAD Surgical History TURP Surgical History knee arthroscopy LEFT Surgical History Vein stripping Hospitalization History See Above [employer] Other Hisnxtm general Narrative - Reported* Type Description Date Medical History hypercholesterolemia Medical History abdominal aortic aneurysm Medical History Carotid stenosis Medical History PAD Surgical History TURP Surgical History knee arthroscopy LEFT Surgical History Vein stripping Surgical History RT FEMUR FX WITH ARAB[employer]LL[employer] PLACEMENT Hospitalization History See Above [employer] Other Hisawsv general Narrative - Reported* Type Description Date Medical History hypercholesterolemia Medical History abdominal aortic aneurysm Medical History Carotid stenosis Medical History PAD Medical History [ ] Surgical History TURP Surgical History knee arthroscopy LEFT Surgical History Vein stripping Surgical History RT FEMUR FX WITH ARABELLA PLACEMENT Surgical History EVAR 02/04/2022 Surgical History [ ] Hospitalization History See Above [employer] Other Hishwwm general Narrative - Reported* Type Description Date Medical History hypercholesterolemia Medical History abdominal aortic aneurysm Medical History Carotid stenosis Medical History PAD Medical History Medication side effects present, initial encounter Medical History Diarrhea, unspecified Medical History Eczema, dyshidrotic Medical History PRIMARY URETHRAL PAPILLARY CARCI NOMA Medical History Anemia Medical History Abnormal loss of weight Medical History Arteriosclerosis of left carotid artery Medical History Vitamin D deficiency Medical History Nonrheumatic aortic (valve) sten osis Medical History Dyspnea on effort Medical History ASHD (arteriosclerotic heart dis ease) Medical History 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 Medical History Osteitis deformans of other bone s Medical History Hyperlipidemia type II Medical History IFG (impaired fasting glucose) Surgical History TURP Surgical History knee arthroscopy LEFT Surgical History Vein stripping Surgical History RT FEMUR FX WITH ARABELLA PLACEMENT Surgical History EVAR 02/04/2022 Surgical History COLONOSCOPY 2019 Hospitalization History See Above [employer] Other History general Narrative - Reported* Type Description Date Medical History hypercholesterolemia Medical History abdominal aortic aneurysm Medical History Carotid stenosis Medical History PAD Medical History Medication side effects present, initial encounter Medical History Diarrhea, unspecified Medical History Eczema, dyshidrotic Medical History PRIMARY URETHRAL PAPILLARY CARCI NOMA Medical History Anemia Medical History Abnormal loss of weight Medical History Arteriosclerosis of left carotid artery Medical History Vitamin D deficiency Medical History Nonrheumatic aortic (valve) sten osis Medical History Dyspnea on effort Medical History ASHD (arteriosclerotic heart dis ease) Medical History 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 Medical History Osteitis deformans of other bone s Medical History Hyperlipidemia type II Medical History IFG (impaired fasting glucose) Surgical History TURP Surgical History knee arthroscopy LEFT Surgical History Vein stripping Surgical History RT FEMUR FX WITH ARABELLA PLACEMENT Surgical History EVAR 02/04/2022 Surgical History COLONOSCOPY 2019 Surgical History Left TCAR 07/2022 Hospitalization History See Above [employer] Other Hisvtvb general Narrative - Reported* Type Description Date Medical History hypercholesterolemia Medical History abdominal aortic aneurysm Medical History Carotid stenosis Medical History PAD Medical History Medication side effects present, initial encounter Medical History Diarrhea, unspecified Medical History Eczema, dyshidrotic Medical History PRIMARY URETHRAL PAPILLARY CARCI NOMA Medical History Anemia Medical History Abnormal loss of weight Medical History Arteriosclerosis of left carotid artery Medical History Vitamin D deficiency Medical History Nonrheumatic aortic (valve) sten osis Medical History Dyspnea on effort Medical History ASHD (arteriosclerotic heart dis ease) Medical History 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 Medical History Osteitis deformans of other bone s Medical History Hyperlipidemia type II Medical History IFG (impaired fasting glucose) Medical History [ ] Surgical History TURP Surgical History knee arthroscopy LEFT Surgical History Vein stripping Surgical History RT FEMUR FX WITH ARABELLA PLACEMENT Surgical History EVAR 02/04/2022 Surgical History COLONOSCOPY 2019 Surgical History Left TCAR 07/2022 Hospitalization History See Above [employer] Other Hospital course Narrative No data available for this section [facility] Discharge instructions No data available for this section [facility] Author Raul Buehrer [facility] October 15, 2021 4:31pm Note Date/Time October 15, 2021 4: 31pm [facility] [address] [place] [id number] Vascular Surgery Progress Note Signed Patient: Chico Baker MR#: [id number] : 1940 Acct:[id number] Age/Sex: 81 / M Adm Date: 2 Loc: 4N Room: [address] [place] [address] Type: DIS IN Attending Dr: Raul Quan MD Copies to: ~ Date of Service: 10/15/2021 Subjective Subjective Interval history: Patient came today for aneurysm repair and after review by anesthesia was felt to require additional cardiac evaluation Exam Physical Exam Vital Signs: Temp Pulse Resp BP Pulse Ox O2 Del Method 97.7 F 73 16 143/75 H 97 Room Air 10/15/21 08:27 10/15/21 08:27 10/15/21 08:27 10/15/21 08:27 10/15/21 08:27 10/15/21 08:27 Objective Labs Other Labs: Laboratory Results - last 24 hr 10/06/21 10/15/21 10:20 08:30 Blood Type A Positive Blood Type Recheck A Positive Antibody Screen Positive Antibody Identification Nonspecific Cold Antibody ASHLEY, Polyspecific Negative Pathology Review Sent to pathology A&P - Vascular Assessment/Plan (1) AAA (abdominal aortic aneurysm): Patient was canceled today by anesthesia due to concern over his cardiac status. I did call his primary care doctor Dr. Shailesh dunham who requested that we proceed with evaluation here. I will contact [facility] to performoutpatient cardiac evaluation and then he will be rescheduled when he is cleared. Code(s): I71.4 - Abdominal aortic aneurysm, without rupture Status: Acute Documented By: Raul Quan MD 10/15/21 162 9 Signed By: <Electronically signed by MD Raul Quan> 10/15/21 1631 [facility] Work Phone: Progress note Author Pb Zurita [facility] October 16, 2021 5:41am Note Date/Time October 16, 2021 5: 41am [facility] [address] [place] [address] Anesthesia Progress Note Signed Patient: Chico Baker MR#: [id number] : 1940 Acct:[id number] Age/Sex: 81 / M Adm Date: 2 Loc: 4N Room: 1N6235-9 Type: DIS IN Attending Dr: Raul Quan MD Copies to: ~ Anesthesia Progress Note Narrative Narrative: Patient for [facility] today for 5+ centimeter infrarenal AAA. Past medical history hypertension, moderate aortic stenosis, and coronary artery disease. Review of medical records and discussion with indicates patient had stress test 2008 positive for infarct and ischemia at which time he was referred to [facility] and had cardiac cath. Medical management was apparently chosen. No interval events,testing, or intervention. Patient has been asymptomatic but sedentary and poor historian. Advised patient and family to see jute bag clipper for consideration of preop stress testing. Discussed with surgeon Documented By: Pb Zurita MD 10/16/21 0535 Signed By: <Electronically signed by Pb Zurita MD> 10/16/21 0541 [facility] Work Phone: Progress note No data available for this section [facility] Reason for Referral No Reason for Referral RecordedNo InformationNo InformationNo InformationNo InformationNo InformationNo InformationNo Information No data available for this section No data available for this section No data available for this section No data available for this section No data available for this section No data available for this section No InformationNo InformationNo InformationNo InformationNo InformationNo InformationNo InformationNo Information No data available for this section No InformationNo InformationNo InformationNo Information No data available for this section No Information No data available for this section Assessments Findings Encounter Date Encounter for Immunization 1st COVID Vaccine manuel Sher PharmD 06/13/2020 Instructions Instructions not supported for this document type No Instructions Recorded History of Present Illness History of Present Illness not supported for this document type No History of Present Illness Recorded Family History No Family History Records Found Relationship Condition Age at Onset Recorded Date/T tad sister Diabetes mellitus Unknown brother Heart problem Unknown Review of System Review of Systems not supported for this document type No Review of Systems Recorded Physical Exam Physical Exam not supported for this document type No Physical Exam Recorded Advance Directives No Advanced Directives Records Found Advance Directive Response Recorded Date/ Time Advance Directives No February 1:37pm Advance Directive Response Recorded Date/ Time Advance Directives No February 12:37pm Summary Purpose Chief Complaint and Reason for Visit Chief Complaint i71.4 i65.23 i70.213 I71.4 AAA AAA AAA Reason for Visit AAA (abdominal aorti c aneurysm) Chief Complaint I65.23 Chief Complaint I65.23 AAA Chief Complaint i65.23 i71.4 Chief Complaint i65.23 i71.4 Carotid Stenosis Chief Complaint i65.23 i71.4 Carotid Stenosis Carotid Stenosis Reason for Visit Left carotid stenosi s Chief Complaint i65.23 Additional Source Comments Medical History (unrecognize d section and content) Includes: Medical History in patient's chartNo Medical History Recorded Evaluations & Outcomes (unre cognized section and content) Includes: Evaluations & Outcomes for active GoalsNo Outcomes Recorded (unrecognized sect ion and content) No Status Records FoundNo Status Records FoundNo Status Records FoundNo Status Records FoundNo Status Records Found INFORMATION SOURCE (unrecogn ized section and content) DATE CREATED AUTHOR 04/02/2021 [facility] DATE CREATED AUTHOR AUTHOR'S ORGANIZ ATION 10/28/2021 [facility] DATE CREATED AUTHOR AUTHOR'S ORGANIZ ATION 04/14/[address] [facility] DATE CREATED AUTHOR AUTHOR'S ORGANIZ ATION 11/11/2022 [facility] DATE CREATED AUTHOR AUTHOR'S ORGANIZ ATION 03/05/2023 [facility] REASON FOR VISIT (unrecogniz ed section and content) REF BY DR DUNHAM FOR AAA, PAD AND CAROTID STENOSIS, Needs a new vascular surgeon7 [facility] FOLLOW UP; SHYANNE'S, ABDOMINAL, CAROTID [facility] FOLLOW UP; SHYANNE'S, ABDOMINAL, CAROTID 08/27/21FOLLOW UP AFTER [facility] 09/18/21-AAAAAA see pt post femur fx rt and clavicle rt6 [facility] FOLLOW UP, Follow-up abdominal aortic aneurysmVASC 3 MONTH FOLLOW UP; CAROTID DUPLEX 11A, Abdominal aortic aneurysm3 week f/u [facility], Follow-up after percutaneous aneurysm repairNo InformationNo InformationNo InformationNo InformationNo Information2 MONTH FOLLOW UP; [facility]/ Follow UpNo InformationNo InformationNo Information3 week f/u left [facility], Follow-up [facility]3 MONTH FOLLOW UP; CAROTID DUPLEX 10A, Follow-up after left [facility] Care Teams (unrecognized sec tion and content) Team Status: Active Member Role Status Dates Shailesh Dunham , DO Primary Care Provider Active Team Status: Inactive Member Role Status Dates Shailesh Dunham , DO Primary Care Provider Active Raul Quan MD Attending Provider Active Team Status: Inactive Member Role Status Dates Shailesh Dunham , DO Primary Care Provider Active Raul Quan MD Admit Provider, Attending Provide r Active Team Status: Inactive Member Role Status Dates Shailesh Dunham , DO Primary Care Provider Active KB Wang Attending Provider Active Goals (unrecognized section and content) Goals may be documented in a n alternate section FOR RECORDS PERTAINING TO PATIENTS WHO ARE OR HAVE BEEN ENROLLED IN A CHEMICAL DEPENDENCY/SUBSTANCEABUSE PROGRAM, SOME INFORMATION MAY BE OMITTED. This clinical summary was aggregated from multiple sources. Caution should be exercised in using it in the provision of clinical care. This summary normalizes information from multiple sources, and as a consequence, information in this document may materially change the coding, format and clinical context of patient data. In addition, data may be omitted in some cases. CLINICAL DECISIONS SHOULD BE BASED ON THE PRIMARY CLINICAL RECORDS. [employer] provides no warranty or guarantee of the accuracy or completeness of information in this document.
--- NOTE | 2023-03-17 14:34 | XR_ITS ---
The [address] [address] Patient Name: CHICO BAKER MRN: [id number] date: 1940 Sex: M Assigned Patient Location: [facility] Current Patient Location: [facility] Accession/Order Number: [id number] Exam Date: 03/17/2023 15:18 Report Date: 03/17/2023 15:52 At the request of: SHERMAN AGUILAR Procedure: XR chest 2V PROCEDURE: XR chest 2V DATE: 03/17/2023 2:18 PM [employer] COMPARISONS: Chest x-ray from 12/08/[address] chest from 10/26/2021 CLINICAL INDICATION: 82 years Male Preop exam FINDINGS: The cardiomediastinal silhouette and pulmonary vasculature are within normal limits. There is evidence of some bilateral calcific pleural plaquing and calcified nodularity, stable. There is slight scattered chronic lung changes, stable. Lungs are otherwise clear. There is no evidence of pleural effusion or pneumothorax. XR/XR chest 2V IMPRESSION: Chest radiograph is essentially within normal limits. Chest is stable from previous exams. Electronically authenticated by: JOSE MAC Date: 03/17/2023 15:52
--- NOTE | 2023-03-17 14:34 | ECG_ITS ---
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
[2023-03-17 15:40] LABS: Anion Gap 7.5; BUN Creatinine Ratio 13.3; Calcium 8.4 mg/dL (8.5-10.1); Carbon Dioxide 30.9 mmol/L (21.0-32.0); Chloride 101 mmol/L (98-107); Estimated GFR (African America >60 (>=60); Estimated GFR (Non-African Ame >60 (>=60); Glucose 113 mg/dL (74-106); Potassium 4.4 mmol/L (3.5-5.1); Sodium 135 mmol/L (136-145)
[2023-03-17 15:42] LABS: Basophils Percent Auto 0.4 % (0.2-2.0); Eosinophils Absolute Auto 0.2 10^3/uL (0.0-0.7); Eosinophils Percent Auto 1.6 % (0.9-7.0); Hematocrit 37.6 % (42.0-54.0); Hemoglobin 12.1 g/dL (14.0-18.0); Immature Granulocytes Abs Auto 0.04 10^3/uL (0.00-0.03); Immature Granulocytes Pct Auto 0.4 % (0.0-0.5); Lymphocytes Absolute Auto 1.7 10^3/uL (1.2-3.8); Lymphocytes Percent Auto 17.5 % (20.5-60.0); Mean Corpuscular HGB Conc 32.2 g/dL (29.9-35.2); Mean Corpuscular Hemoglobin 30.2 pg (25.9-34.0); Mean Corpuscular Volume 93.8 fL (80.0-94.0); Mean Platelet Volume 9.5 fL (9.5-13.5); Monocytes Percent Auto 10.4 % (1.7-12.0); Neutrophils Absolute Auto 6.6 10^3/uL (1.4-6.5); Neutrophils Percent Auto 69.7 % (43.0-75.0); Platelet Count 192 10^3/uL (150-450); Red Blood Count 4.01 10^6/uL (4.70-6.10); Red Cell Distribution Width 12.4 % (11.0-15.0); White Blood Count 9.5 10^3/uL (4.0-11.0)
[2023-03-17 15:49] LABS: Partial Thromboplastin Time 30.7 sec (22.3-36.2); Prothrombin Time 10.6 sec (9.0-11.6)
== END 2023-03-17 14:27 | disposition home or self-care (01) ==
LOC: PST 14:27
PROVIDERS: PCP Internal Medicine; Visit Provider Urology
DX: Z01.810 Encounter for preprocedural cardiovascular examination (principal); Z01.812 Encounter for preprocedural laboratory examination; N20.0 Calculus of kidney
CPT/HCPCS: 71046; 80048; 85025; 85610; 85730; 93005

== ENCOUNTER 2023-03-24 11:21 | Day surgery (SDC) | payer MEDICARE, OTHER, SELFPAY ==
[2023-03-17 15:04] VITALS: BP 164/74; PULSE 71; RESP 16; TEMP 36.3; O2SAT 98; BMI 22.0
[2023-03-24] VITALS (18 sets, daily range): BP systolic 104–194; BP diastolic 53–99; PULSE 58–76; RESP 10–22; TEMP 35.9–36.1; O2SAT 96–100; BMI 21.6
--- OUTSIDE RECORDS SUMMARY | 2023-03-24 11:26 | XMS_ITS | CCD ---
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 Name Role Phone Orlando Dotson Unavailable Raul Quan Unavailable Tamar Perea Unavailable Shailesh Dunham Unavailable DO Shailesh Dunham Primary Care Provider MD Raul Quan Attending Provider KB Perea Attending Provider MD Raul Quan Admit Provider [phone] DO Shailesh Dunham Primary Care Provider [phone] KB Perea Attending Provider MD Raul Quan Admit Provider MD Raul Quan Attending Provider SHAILESH DUNHAM Primary Care Physician [phone] [place] .IVELISSE Admitting Unavailable LUCaleb .IVELISSE Attending Unavailable ENRICO, DR MEADE Primary Care Unavailable [place] .IVELISSE Consulting Unavailable ENRICO, DR MEADE Admitting Unavailable BALL, DR MEADE Attending Unavailable ENRICO, DR MEADE [...] Care Provider MD Raul Quan Attending Provider DO Shailesh Dunham Primary Care Provider MD Raul Quan Attending Provider [phone] MD Raul Quan Admit Provider DO Shailesh Dunham Primary Care Provider MD Raul Quan Attending Provider [phone] Shailesh Dunham Primary [facility] Unavailable Tamar Perea Admitting Unavailable Tamar Perea Attending Unavailable Shailesh Dunham Primary Care Unavailable Raul Quan Admitting Unavailable Raul Quan Attending Unavailable Shailesh Dunham Primary Care Unavailable Raul Quan Attending Unavailable Raul Quan Admitting Unavailable Shailesh Dunham Primary Care Unavailable Raul Quan Attending Unavailable Raul Quan Admitting Unavailable Enrico Shailesh Primary Care Unavailable Raul Quan Admitting Unavailable Raul Quan Attending Unavailable Enrico [place] [facility] Unavailable Raul Quan Attending Unavailable Raul Quan Admitting Unavailable Ivelisse Hassan Attending Unavailable Ivelisse Hassan Attending Unavailable Ivelisse Hassan Attending Unavailable Ivelisse Hassan Admitting Unavailable Ivelisse Hassan Attending Unavailable Ivelisse Hassan Attending Unavailable YennieIvelisse MSilvestre Attending Unavailable Ivelisse Hassan Attending Unavailable Ivelisse Hassan Attending Unavailable Allergies Allergy Classification Reported Allergen(s) Allergy Type Date of Onset Reaction(s) Facility (5 sources) Angiotensin Converting Enzyme (Shalini) Inhibitors Drug allergy Unknown [employer] [facility] [employer] Other (6 sources) Tetanus vaccine; Translations: [tetanus toxoid] Drug allergy Unknown [facility] Repository (19 sources) Angiotensin Converting Enzyme (Shalini) Inhibitors; Translations: [Angiotensin-conve rting enzyme inhibitor agent (substance)] Allergy to substance 02-24-20 19 Hiv, [facility] (8 sources) Contrast media Allergy to substance 10-07-19 22 [facility] (8 sources) Tetanus immune globulin Drug Allergy 02-24-20 19 Unknown Reaction [facility] (15 sources) Angiotensin-conver ting enzyme inhibitor agent Drug allergy Unknown [facility] [employer] Other (2 sources) Tetanus toxoid specific immunoglobulin E Drug allergy Unknown [facility] [employer] Other (10 sources) Contrast media; Translations: [Contrast Dye] Allergy to substance unknown [facility] (10 sources) Iodine; Translations: [iodine] Drug Allergy Unknown (qualifier value) [facility] (9 sources) tetanus toxoid vaccine, inactivated; Translations: [tetanus toxoid] Drug Allergy Unknown (qualifier value) [facility] (1 source) Iodine Drug Allergy [facility] [place] [facility] Repository (1 source) Iodine (And Iodine Containting Drugs) Drug allergy (disorder) [facility] [place] [facility] Repository (1 source) Tetanus AND Diphtheria Tox,Adult Drug allergy (disorder) [facility] [place] [facility] Repository (13 sources) Tetanus vaccine Drug allergy Unknown [facility] [employer] Other (3 sources) Iodinated Contrast Media Allergy to substance 07-02-19 23 [facility] Medications Current Medications Medication Drug Class(es) [...] 02-11-2022 take 2 tablets by mo [facility] three times daily calcium (as calcium citrate) [...] PO Daily February 23, 2019 1:00am Isosorbide [place] itrate Active isosorbide dinitrate 30 mg oral [...] Daily, # 30 tab(s), Refills(s) 6, Pharmacy: [facility]/pharmacy #[id number], 169, cm, 10/07/22 8:54:00 EDT, Height/Length [...] for 30 day(s), 60 tab(s), Refill(s) 0, [facility]/pharmacy #[id number], 169, cm, 02/11/22 8:44:00 EST, Height/Length [...] acid 7540 MG / polyethylene glycol 3350 25420 MG / potassium chloride 1200 MG / sodium ascorbate 16245 MG / sodium chloride 3200 MG Powder for Oral Solution) / 1 (polyethylene glycol 3350 158477 MG / potassium chloride 1000 MG / [...] Coronary arteriosclerosis; Translations: [Atherosclerotic heart disease of [place] coronary artery without angina pectoris] Onset: 11-14-2021 [...] 2 Episodic Other aftercare (1 source) Other skilled nursing (current) drug therapy; Translations: [OTH DIESEL ENGINE SPECIALIST CURRENT DRUG THERAPY] Onset: 2 Episodic Other aftercare (1 source) [facility] (current) use of anticoagulants; Translations: [DIESEL ENGINE SPECIALIST CURRNT USE ANTICOAGULANTS] Onset: 2 Episodic Other aftercare (1 source) 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 Orders placed. Possible ESWL pending size of stones. No follow up at this time. Pt to be called with results. Called pt and reminded him to complete LINDSEY/KUB @ [facility] in the next month. Orders were [...] 02/22/2023 16:05:00 EST From: Belkis Johnson MA ([facility] Recalls Mo) To: Ivelisse Hassan MD; [...] KML Patient is scheduled for 03/24/22 @ [facility] Comment on above: Result Comment: Miss ing Attachment - attachment exceeds size limitation (02/19/2023) RAD - Ultrasound Report Can be viewed in source system Missing Attachment - attachment exceeds size limitation (02/19/2023) RAD - MISC Can be viewed in source system RAD - MISCon 02-22-2023 RAD - MISC [id number]#1.00TIFF [facility] RAD - Ultrasound Reporton RAD - Ultrasound Report [id number]#1.00TIFF [facility] [place] 01-14-2023 Screens [id number]#1.00TIFF Normal [facility] Screens [id number]#1.00TIFF Normal [facility] Patient Educationon 01-14-20 23 Patient Education Urology Benign Prostatic Hyperplasia Benign [...] Follow these instructions at home: ? Take cicq-zum-xbpjwmf and prescription medicines only as told by [...] the medicine (more content not included)... Normal [facility] Urology Office/Clinic Noteon 01-13-2023 Urology Office/Clinic Note [...] with voice recognition artificial intelligence software, specifically [employer] and or [employer] Substitutions may have occurred due to the [...] stones no (more content not included)... Normal [facility] Comment on above: Result Comment: Elec tronically Signed By: Ivelisse Hassan MD\.br\Date and Time Signed: 01/13/23 16:25 EST\.br\Electronically Co-Signed By: Faviola Clemens\.br\Date and Time Co-Signed: 01/13/23 09:59 EST US carotid doppler BIon 09-0 US carotid doppler BI [facility] Main Felt [address] [place] [address] Ultrasound Report Signed Patient: Chico Baker MR#: [id number] 284 : 1940 Acct:[id number] Age/Sex: 82 / M ADM Date: 11/10/22 Loc: [facility] Room: Type: [facility] Attending Dr: Raul Quan MD Ordering Provider: [...] Raul Quan M.D.11/10/2022 10:30 AM Dictation Location: [place] [address] Tech: Harika Pradhan Transcribed By: ALEX 11/10/22 1030 Dictated By: Raul Quan MD 11/10/22 1029 Signed By: 11/10/22 1030 [facility] [place] 10-08-2022 Screens [id number]#1.00CD:127 Normal [facility] Screens [id number]#[id number]:127 Normal [facility] Ambulatory Visit Summaryon 0 10-07-2022 Ambulatory Visit Summary CHICO BAKER :1940 Visit Date:10/07/2022 Ambulatory Visit Instructions Your Diagnosis BPH with obstruction/lower urinary tract symptoms History of kidney stones Asymptomatic microscopic hematuria 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 Tests Performed Urnls Dip Stick Auto w/o Microscopy POC 76971 Your Care Team Attending Physician - Ivelisse [...] Ivelisse Hassan MD Where: [facility] Normal [facility] Patient Educationon 10-08-19 Patient Education Urology Benign [...] Follow these instructions at home: ? Take ppdb-xzd-qdtvaxk and prescription medicines only as told by [...] the medicine (more content not included)... Normal [facility] Urology Office/Clinic Noteon 10-07-2022 Urology Office/Clinic Note [...] lower urinary tract symptoms) hx TURP by [facility] 2019, prostate small on 05/11/22 CT scan [...] neg, s (more content not included)... Normal [facility] Comment on above: Result Comment: Elec tronically Signed By: Mo LEIJA, Ivelisse Schreiber\.br\Date and Time Signed: 10/07/22 10:28 EDT\.br\Electronically Co-Signed By: Eleonora Belcher\.br\Date and Time Co-Signed: 10/07/22 09:25 EDT Consent for Procedure/Surger yon 07-29-2022 Consent for Procedure/Surgery [id number]#1.00CD:127 [facility] Patient Educationon 07-29-19 Patient Education Urology Erectile [...] these instructions at home: Medicines ? Take xmtw-nqt-endqfzx and prescription medicines only as told by [...] include cig (more content not included)... Normal [facility] Urology Office/Clinic Noteon 07-28-2022 Urology Office/Clinic Note [...] urine The Urethra was dilated to: 16-24 Albanian with connor sounds without difficulty Soft 14 [...] urinary tract symptoms) PSA: 02/10/19 - 0.13 07/05/21 - <0.05 02/10/22 - <0.13 hx TURP [...] (erectile d (more content not included)... Normal [facility] Comment on above: Result Comment: Elec tronically Signed By: Mo LEIJA, Ivelisse Schreiber\.br\Date and Time Signed: 07/28/22 10:49 EDT\.br\Electronically Co-Signed By: Clarissa Joaquin MA\.br\Date and Time Co-Signed: 07/28/22 10:28 EDT Activated Clotting Timeon Activated Clotting Time POC 335 s High 90-139 [facility] Comment on above: Result Comment: Refe rence Range: 90-139 (Non-heparinized) PERFORMED BY: [place] [address] PATHOLOGIST [employer]AL RETAIL SALES MANAGER ZENA CASTELLON M.D. Performed By: #### C BC, BMP #### [facility] [address] [place] [address] Activated Clotting Time POC 143 s High 90-139 [facility] Comment on above: Result Comment: Refe rence Range: 90-139 (Non-heparinized) PERFORMED BY: [place] [address] PATHOLOGIST [employer]AL RETAIL SALES MANAGER ZENA CASTELLON M.D. Performed By: #### C BC, BMP #### [facility] [address] [place] [address] Blood activated clotting sue e by coagulation assayOrdered By: Raul Quan on 07-08-2022 ACT Coag (Bld) 335 s 90-139 [facility] Comment on above: Reference Range: 90- 139 (Non-heparinized) Laboratory - CoagulationOrde red By: Ralu Quan on 07-08-2022 PT Coag (PPP) [Time] 11.7 s 9.0-12.9 [facility] Platelet poor plasma interna tional normalized ratio (INR) by coagulation assay (relatOrdered By: Raul Quan on 07-08-2022 INR Coag (PPP) [Relative time] 1.0 {INR} [facility] Comment on above: INR Therapeutic Rang e [...] Coag (PPP) [Relative time] 1.0 {INR} Normal [facility] Comment on above: Result Comment: INR Therapeutic [...] heart valves: 3 - 4.5 PERFORMED BY: [place] [address] PATHOLOGIST [employer] RETAIL SALES MANAGER ZENA CASTELLON M.D. Performed By: #### C BC, BMP #### [facility] [address] [place], [place] [id number] [facility] PT Coag (PPP) [Time] 11.7 s Normal 9.0-12.9 [facility] Comment on above: Performed By: #### C BC, BMP #### [facility] [address] [place] [address] [place] Type and Screenon 07-08-2022 ABO and Rh group Nom (Bld) Blood group A Rh(D) positive Normal [facility] Comment on above: Result Comment: PERF ORMED BY: [place] [address] PATHOLOGIST [employer] RET[employer] SALES MANAGER ZENA CASTELLON M.D. Alanine aminotransferase [En zymatic activity/volume] in Serum or PlasmaOrdered By: Raul Quan on 07-01-2022 ALT [Catalytic activity/Vol] 9 U/L 7-52 [facility] Albumin [Mass/volume] in Ser um or Plasma by Bromocresol green (BCG) dye binding methoOrdered By: Raul Quan on 07-01-2022 Albumin BCG dye [Mass/Vol] 3.7 g/dL 3.5-5.7 [facility] Alkaline phosphatase [Enzyma tic activity/volume] in Serum or PlasmaOrdered By: Raul Quan on 07-01-2022 ALP [Catalytic activity/Vol] 96 U/L 34-104 [facility] Aspartate aminotransferase [ Enzymatic activity/volume] in Serum or PlasmaOrdered By: Raul Quan on 07-01-2022 AST [Catalytic activity/Vol] 14 U/L 13-39 [facility] Basophils Auto (Bld) [#/Vol] Ordered By: Raul Dovermary ann on 07-01-2022 Basophils (Bld) [#/Vol] 0.1 10*3/uL 0.0-0.2 [facility] Basophils/100 WBC Auto (Bld) Ordered By: Raul [facility] on 07-01-2022 Basophils/100 WBC (Bld) 0.7 % . [facility] Bilirubin.total [Mass/volume ] in Serum or PlasmaOrdered By: Raul Dovermary ann on 07-01-2022 Bilirubin [Mass/Vol] 0.5 mg/dL 0.3-1.0 [facility] Calcium [Mass/volume] in Ser um or PlasmaOrdered By: Raul Quan on 07-01-2022 Calcium [Mass/Vol] 8.5 mg/dL 8.6-10.3 [facility] Carbon dioxide, total [Moles /volume] in Serum or PlasmaOrdered By: Raul [facility] on 07-01-2022 CO2 [Moles/Vol] 24.6 mmol/L 21.0-31.0 [facility] Chloride [Moles/volume] in S aisha or PlasmaOrdered By: Raul Dovermary ann on 07-01-2022 Chloride [Moles/Vol] 100 mmol/L 98-107 [facility] Complete Blood Count Auto Di ffon 07-01-2022 Basophils (Bld) [#/Vol] 0.1 10*3/uL Normal 0.0-0.2 [facility] Comment on above: Result Comment: PERF ORMED BY: [facility] [address] [place] [address] PATHOLOGIST REG[employer]AL RETAIL SALES MANAGER ZENA CASTELLON M.D. Performed By: #### C BC, CMP #### [facility] [address] Basophils/100 WBC (Bld) 0.7 % Normal . [facility] Comment on above: Performed By: #### C BC, CMP #### [address] Eosinophils (Bld) [#/Vol] 0.1 10*3/uL Normal 0.0-0.45 [facility] Comment on above: Performed By: #### C BC, CMP #### [address] Eosinophils/100 WBC (Bld) 1.5 % Normal . [facility] Comment on above: Performed By: #### C BC, CMP #### [address] Erythrocyte distribution width (RBC) [Ratio] 13.0 % Normal 12.0-14.8 [facility] Comment on above: Performed By: #### C BC, CMP #### [address] Hematocrit (Bld) [Volume fraction] 36.4 % Low 38.8-50.0 [facility] Comment on above: Performed By: #### C BC, CMP #### [address] Hemoglobin (Bld) [Mass/Vol] 12.1 g/dL Low 13.0-17.0 [facility] Comment on above: Performed By: #### C BC, CMP #### [address] Lymphocytes (Bld) [#/Vol] 1.6 10*3/uL Normal 1.00-4.8 [facility] Comment on above: Performed By: #### C BC, CMP #### [address] Lymphocytes/100 WBC (Bld) 19.3 % Normal . [facility] Comment on above: Performed By: #### C BC, CMP #### [address] MCH (RBC) [Entitic mass] 30.2 pg Normal 27.5-35.2 [facility] Comment on above: Performed By: #### C BC, CMP #### [address] MCV (RBC) [Entitic vol] 90.7 fL Normal 83.5-101 [facility] Comment on above: Performed By: #### C BC, CMP #### [address] Mean Corpuscular HGB Conc 33.3 g/dL Normal 32.5-35.6 [facility] Comment on above: Performed By: #### C BC, CMP #### [address] Monocytes (Bld) [#/Vol] 0.9 10*3/uL High 0.0-0.8 [facility] Comment on above: Performed By: #### C BC, CMP #### [address] Monocytes/100 WBC (Bld) 11.1 % Normal . [facility] Comment on above: Performed By: #### C BC, CMP #### [address] Neutrophils (Bld) [#/Vol] 5.7 10*3/uL Normal 1.8-7.7 [facility] Comment on above: Performed By: #### C BC, CMP #### [address] Neutrophils/100 WBC (Bld) 67.4 % Normal . [facility] Comment on above: Performed By: #### C BC, CMP #### [address] NRBC% 0.0 /100{WBC} Normal 0-0.5 [facility] Comment on above: Performed By: #### C BC, CMP #### [address] Platelet mean volume (Bld) [Entitic vol] 7.6 fL Normal 6.6-10.1 [facility] Comment on above: Performed By: #### C BC, CMP #### [address] Platelets (Bld) [#/Vol] 198 10*3/uL Normal 150-450 [facility] Comment on above: Performed By: #### C BC, CMP #### [address] RBC (Bld) [#/Vol] 4.01 10*6/uL Normal 3.90-5.60 [facility] [place] [facility] Comment on above: Performed By: #### C BC, CMP #### [address] WBC (Bld) [#/Vol] 8.5 10*3/uL Normal 4.1-10.5 [facility] Comment on above: Performed By: #### C BC, CMP #### [address] Comprehensive Metabolic Pane santo 07-01-2022 Albumin [Mass/Vol] 3.7 g/dL Normal 3.5-5.7 [facility] Comment on above: Performed By: #### C BC, CMP #### [address] Albumin/Globulin [Mass ratio] 1.1 {ratio} Normal [facility] Comment on above: Performed By: #### C BC, CMP #### [address] ALP [Catalytic activity/Vol] 96 U/L Normal 34-104 [facility] Comment on above: Result Comment: PERF ORMED BY: [place] [address] PATHOLOGIST [employer] SALES MANAGER ZENA CASTELLON M.D. Performed By: #### C BC, CMP #### [address] ALT [Catalytic activity/Vol] 9 U/L Normal 7-52 [facility] Comment on above: Performed By: #### C BC, CMP #### [facility] [address] [place] [id number] [place] Anion gap [Moles/Vol] 13.8 mmol/L Normal 6.0-15.0 [facility] Comment on above: Performed By: #### C BC, CMP #### [facility] [address] [place] [id number] [place] AST [Catalytic activity/Vol] 14 U/L Normal 13-39 [facility] Comment on above: Performed By: #### C BC, CMP #### [facility] [address] [place] [id number] [place] Bilirubin [Mass/Vol] 0.5 mg/dL Normal 0.3-1.0 [facility] Comment on above: Performed By: #### C BC, CMP #### [facility] [address] [place] [id number] [place] Calcium [Mass/Vol] 8.5 mg/dL Low 8.6-10.3 [facility] Comment on above: Performed By: #### C BC, CMP #### [facility] [address] [place] [id number] [place] Chloride [Moles/Vol] 100 mmol/L Normal 98-107 [facility] Comment on above: Performed By: #### C BC, CMP #### [facility] [address] [place] [id number] [place] CO2 [Moles/Vol] 24.6 mmol/L Normal 21.0-31.0 [facility] Comment on above: Performed By: #### C BC, CMP #### [facility] [address] [place] [id number] [place] Creatinine [Mass/Vol] 0.87 mg/dL Normal 0.70-1.30 [facility] Comment on above: Performed By: #### C BC, CMP #### [facility] [address] [place] [id number] [place] GFR/1.73 sq M.predicted MDRD (S/P/Bld) [Vol rate/Area] mL/min/{1.73_m2} Normal [facility] Comment on above: Performed By: #### C BC, CMP #### [facility] [address] [place] [address] [place] Globulin (S) [Mass/Vol] 3.4 g/dL Normal [facility] Comment on above: Performed By: #### C BC, CMP #### [facility] [address] Glucose [Mass/Vol] 163 mg/dL High 70-100 [facility] Comment on above: Result Comment: [facility] Glucose Reference Range is dependent on time and content of last meal. Glucose of more than 200 mg/dL in a nonstressed, ambulatory subject supports the diagnosis of Diabetes Mellitus. ADA recommended reference range Performed By: #### C BC, CMP #### [facility] [address] Potassium [Moles/Vol] 4.4 mmol/L Normal 3.5-5.1 [facility] Comment on above: Performed By: #### C BC, CMP #### [facility] [address] [place] [address] [place] Protein [Mass/Vol] 7.1 g/dL Normal 6.4-8.9 [facility] Comment on above: Performed By: #### C BC, CMP #### [facility] [address] [place] [address] [place] Sodium [Moles/Vol] 134 mmol/L Low 136-145 [facility] Comment on above: Performed By: #### C BC, CMP #### [facility] [address] [place] [address] [place] Urea nitrogen [Mass/Vol] 17 mg/dL Normal 7-25 [facility] Comment on above: Performed By: #### C BC, CMP #### [place] [address] [place] Creatinine [Mass/volume] in Serum or PlasmaOrdered By: Raul Quan on 07-01-2022 Creatinine [Mass/Vol] 0.87 mg/dL 0.70-1.30 [facility] ECG 12 lead ECGon 07-01-2022 ECG 12 lead ECG [facility] [place] [address] Electrocardiograph Report Signed Patient: Chico Baker MR#: [id number] 284 : 1940 Acct:[id number] Age/Sex: 82 / M ADM Date: 07/01/22 Loc: Room: Type: [facility] Attending Dr: Raul Quan MD Ordering Provider: [...] By Rosanne Shabazz DO 07/03 0637 Normal [facility] Eosinophils Auto (Bld) [#/Vo l]Ordered By: Raul Quan on 07-01-2022 Eosinophils (Bld) [#/Vol] 0.1 10*3/uL 0.0-0.45 [facility] Eosinophils/100 WBC Auto (Bl d)Ordered By: Raul Quan on 07-01-2022 Eosinophils/100 WBC (Bld) 1.5 % . [facility] Erythrocyte distribution wid th Auto (RBC) [Ratio]Ordered By: Raul Quan on 07-01-2022 Erythrocyte distribution width (RBC) [Ratio] 13.0 % 12.0-14.8 [facility] Globulin Calc (S) [Mass/Vol] Ordered By: Raul Quan on 07-01-2022 Globulin (S) [Mass/Vol] 3.4 g/dL [facility] Glucose [Mass/volume] in Ser um or PlasmaOrdered By: Raul Quan on 07-01-2022 Glucose [Mass/Vol] 163 mg/dL 70-100 [facility] Comment on above: ADA recommended refe rence rangeRandom Glucose Reference Range is dependent on time and content of last meal. Glucose of more than 200 mg/dL in a nonstressed, ambulatory subject supports the diagnosis of Diabetes Mellitus. Hematocrit Auto (Bld) [Volum e fraction]Ordered By: Raul Quan on 07-01-2022 Hematocrit (Bld) [Volume fraction] 36.4 % 38.8-50.0 [facility] Hemoglobin [Mass/volume] in BloodOrdered By: Raul Quan on 07-01-2022 Hemoglobin (Bld) [Mass/Vol] 12.1 g/dL 13.0-17.0 [facility] Leukocytes [#/volume] correc shyann for nucleated erythrocytes in Blood by Automated counOrdered By: Raul Quan on 07-01-2022 WBC corrected for nucl RBC Auto (Bld) [#/Vol] 8.5 10*3/uL 4.1-10.5 [facility] Lymphocytes Auto (Bld) [#/Vo l]Ordered By: Raul Quan on 07-01-2022 Lymphocytes (Bld) [#/Vol] 1.6 10*3/uL 1.00-4.8 [facility] [facility] Lymphocytes/100 WBC Auto (Bl d)Ordered By: Raul Quan on 07-01-2022 Lymphocytes/100 WBC (Bld) 19.3 % . [facility] MCH Auto (RBC) [Entitic mass ]Ordered By: Raul Quan on 07-01-2022 MCH (RBC) [Entitic mass] 30.2 pg 27.5-35.2 [facility] MCHC Auto (RBC) [Mass/Vol]Or dered By: Raul Quan on 07-01-2022 MCHC (RBC) [Mass/Vol] 33.3 g/dL 32.5-35.6 [facility] MCV Auto (RBC) [Entitic vol] Ordered By: Raul Qaun on 07-01-2022 MCV (RBC) [Entitic vol] 90.7 fL 83.5-101 [facility] Monocytes Auto (Bld) [#/Vol] Ordered By: Raul Quan on 07-01-2022 Monocytes (Bld) [#/Vol] 0.9 10*3/uL 0.0-0.8 [facility] Monocytes/100 WBC Auto (Bld) Ordered By: Raul Quan on 07-01-2022 Monocytes/100 WBC (Bld) 11.1 % . [facility] Neutrophils Auto (Bld) [#/Vo l]Ordered By: Raul Quan on 07-01-2022 Neutrophils (Bld) [#/Vol] 5.7 10*3/uL 1.8-7.7 [facility] Neutrophils/100 WBC Auto (Bl d)Ordered By: Raul Quan on 07-01-2022 Neutrophils/100 WBC (Bld) 67.4 % . [facility] No Panel InformationOrdered By: Raul Quan on 07-01-2022 Estimated GFR (CKD-EPI) > 60.0 mL/Min [facility] Creatinine Clearance (Chem N/A [facility] Nucleated erythrocytes [Pres ence] in Blood by Automated countOrdered By: Raul Quan on 07-01-2022 Nucleated RBC Auto Ql (Bld) 0.0 /100{WBC} 0-0.5 [facility] Platelet mean volume Auto (B ld) [Entitic vol]Ordered By: Raul Quan on 07-01-2022 Platelet mean volume (Bld) [Entitic vol] 7.6 fL 6.6-10.1 [facility] Platelets Auto (Bld) [#/Vol] Ordered By: Raul Quan on 07-01-2022 Platelets (Bld) [#/Vol] 198 10*3/uL 150-450 [facility] Potassium [Moles/volume] in Serum or PlasmaOrdered By: Raul Quan on 07-01-2022 Potassium [Moles/Vol] 4.4 mmol/L 3.5-5.1 [facility] Protein [Mass/volume] in Ser um or PlasmaOrdered By: Raul Quan on 07-01-2022 Protein [Mass/Vol] 7.1 g/dL 6.4-8.9 [facility] RBC Auto (Bld) [#/Vol]Ordere d By: Raul Quan on 07-01-2022 RBC (Bld) [#/Vol] 4.01 10*6/uL 3.90-5.60 [facility] Serum or plasma albumin/glob ulin mass ratioOrdered By: Raul Quan on 07-01-2022 Albumin/Globulin [Mass ratio] 1.1 {ratio} [facility] Serum or plasma anion gap de terminationOrdered By: Raul Quan on 07-01-2022 Anion gap [Moles/Vol] 13.8 mmol/L 6.0-15.0 [facility] Sodium [Moles/volume] in Ser um or PlasmaOrdered By: Raul Quan on 07-01-2022 Sodium [Moles/Vol] 134 mmol/L 136-145 [facility] Urea nitrogen [Mass/volume] in Serum or PlasmaOrdered By: Raul Quan on 07-01-2022 Urea nitrogen [Mass/Vol] 17 mg/dL 7-25 [facility] WBC Auto (Bld) [#/Vol]Ordere d By: Raul Quan on 07-01-2022 WBC (Bld) [#/Vol] 8.5 10*3/uL 4.1-10.5 [facility] Patient Educationon 06-25-19 Patient Education Urology [...] these instructions at home: Medicines ? Take lbua-pyr-dgslhof and prescription medicines only as told by [...] the blood stops without treatment. ? Take uurq-teu-gsghjjz and prescription medicines only as told by your health care provider. ? Drink enough fluid to keep your urine pale yellow. This information is not intended to replace advice given to you by your health care provider. Make sure you discuss any questions you have with your health care provider. Document Revised: 10/23/2020 Document Reviewed: 10/23/2020 [employer] Patient Education ? 2022 [employer]. Normal [facility] Screenson 06-24-2022 Screens [id number]#1.00CD:127 [facility] Screens [id number]#1.00CD:127 [facility] Urology Office/Clinic Noteon 06-24-2022 Urology Office/Clinic Note [...] Urnls Dip Stick Auto w/o Microscopy POC 51918 Urology Procedure Order 4. Penile rash (R21: Rash and other nonspecific skin eruption) Pt states rash has completely cleared up after stopping Bactrim. Denies irritation. Head of penis is not red, but is discolored. Not bothersome. D/c use of cream. Resolved Ordered: Urology Procedure Order 5. ED (erectile dysfunction) (N52.9: Male erectile dysfunction, unspecified) (more content not included)... Normal [facility] Comment on above: Result Comment: Elec tronically Signed By: Mo LEIJA, Ivelisse Schreiber\.br\Date and Time Signed: 06/24/22 10:24 EDT RAD - CT Reporton 05-15-2022 RAD - CT Report [id number]#1.00CD:127 Normal [facility] RAD - CT Reporton 05-14-2022 RAD - CT Report [id number]#1.00CD:127 Normal [facility] RAD - CT Report [id number]#1.00CD:127 Normal [facility] CT angio abdomen pelvison CT angio abdomen pelvis [facility] Main Felt [address] [place] [address] CT Scan Report Signed Patient: Chico Baker MR#: [id number] : 1940 Acct:[id number] Age/Sex: 81 / M ADM Date: 05/11/22 Loc: CT Room: Type: [facility] Attending Dr: Raul Quan MD Copies to: [...] The graft appears to be patent. The [place] aneurysmal sac appears mildly decreased in size [...] Payan Jr., D.OSilvestre05/11/2022 3:58 PM Dictation Location: [place] [address] Transcribed By: [facility] 05/11/22 1558 Dictated By: Woody Payan Jr, DO 05/11/22 1551 Signed By: 05/11/22 1558 Normal [facility] CT angio neckon 05-11-2022 CT angio neck [facility] Main Felt [address] [place] [address] CT Scan Report Signed Patient: Chico Baker MR#: [id number] : 1940 Acct:[id number] Age/Sex: 81 / M ADM Date: 05/11/22 Loc: CT Room: Type: [facility] Attending Dr: Raul Quan MD Copies to: Raul Quan MD Ordering Provider: Raul Quan MD Date of Service: 05/11/22 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, I71.4 ([id number]) CT/CT angio head: I65.23, I71.4 CTA head [...] Raul Solo M.D.05/11/2022 5:04 PM Dictation Location: [place] [address] Transcribed By: [facility] 05/11/22 170 Dictated By: Raul Solo DO 05/11/22 1648 Signed By: 05/11/22 1704 [facility] Creatinine (Bld) [Mass/Vol]O rdered By: Raul Quan on 05-11-2022 Creatinine [Mass/Vol] 0.9 mg/dL 0.6-1.3 [facility] Comment on above: ER/ESD physician is notified/shown all ISTAT results.Critical values may be confirmed by laboratory testing ifdeemed necessary by ER attending doctor. ISTAT XRay CREon 05-11-2022 Creatinine [Mass/Vol] 0.9 mg/dL Normal 0.6-1.3 [facility] Comment on above: Result Comment: ER/E SD physician is notified/shown all ISTAT results. Critical values may be confirmed by laboratory testing if deemed necessary by ER attending doctor. Performed By: #### C BC, BMP #### [facility] [address] [place] [address] [place] ISTAT GFR ( > 60 Normal [facility] Comment on above: Result Comment: GFR estimated reference range: According to KDOQI guidelines, <60 ml/min/1.73m2 is sufficient to diagnose a patient with chronic kidney disease. PERFORMED BY: [place] [address] PATHOLOGIST [employer] ZENA CASTELLON M.D. Performed By: #### C BC, BMP #### [facility] [address] [place] [address] [place] ISTAT GFR (Non- Am > 60 Normal [facility] Comment on above: Performed By: #### C BC, BMP #### [facility] [address] No Panel InformationOrdered By: Raul Quan on 05-11-2022 POC Estimated GFR > 60 [facility] Comment on above: GFR estimated refere nce range: According to KDOQI guidelines, <60 ml/min/1.73m2 is sufficient to diagnose a patient with chronic kidney disease. POC Estimated GFR Non- Amer > 60 [facility] Coding Summary.on 04-20-2022 Coding Summary. CD:[id number] Gh0bWw +PGhlYWQ+NE8PQYSlP45xiKWxc S2ZM1eWQZ7KWHLWKTFVPO7YZG9 kfMQ8GBgmS8KrnxUz JoodjKHyBA34XZo1RGC9uAvwGZ tcuQ4siGHqD4o1PnSkCH67eI81 WGewBYBfSeI2DrQwsahyiAEr H2vrFdYuzBVsEgg+PHRhYmxlIH isHKTrZSllXROwWqFqwDizGC8q Di7wHBCmQKFuiAaldPKjFaEl p0vnXTAtARbmAO6fcVxpJ5MdbP J0RNRvh1c8Pg88eSK+PHRkIHN0 ySxbWNmmy768MeDjx6uvXVN9 eAXfODvqQRF2U01dt5B4MINzRG JdGCO1jPG3kU1hxAniizkuW8Yn dZYqLqW8KJL6dFTqrJ6mpOct hqupgG2rKav+D58JWO1ZPIZMEE 3VQqs0U1NgOyrktWZ+MA52XGVu XZ04tLAspLOra0roiVe0UjAd HHHcVOX7gKarFLjst2JvBYJlQ4 2zwRJpr0D4WXQjwXsyzPMbDdQv rNH2uA4uPKhlouqlu9gpzkfc Vkgpo6kjju44aR90J53eOWuuDR KuLBX5LHOjPDNqdXergf9thB7d Ii8+LPcmq1sau1fxaSk8TeMb HEYnnhMzjVrqIVB6k3VxQm82N7 XycAtet3PkBef6ah82bEUwd7R4 hEM9NAzgXIQhnI7uGEsoNdE5 WNFnBlZofP63bTViEAthKg7qwD azbBqfJI3kFFCjgvgvUMWqnC2s UQObfFImyYwgYZ5gLAFvcrzu l864PiJuVXU5RNHtfOBxC9ThdD 1bSxHhBPByTYCqV5WzlVDwAEzo W555CBioUmF1QXIchrQqB7Qg UMNehQmjItU1t9R3Sg8Jn1Bdzr plQMC8MTvkKYMiXbQqNaFwVpM9 V1DqSjt8VSXnuFxvBA0bW9Yh UZQfjbclwcydyLZ8DRLfAUEtuB 01uSQnKJrlLp1yy5A5v034WRHt QDOgzW47Tq0elZkfCXNwaKIX sT6iyqxdx3ixqwzkYcKpVAMnTK y8LNi7PNDfdHknWcJhFZQ8FnJ1 KHR0yQGauB1orLwhjkoyzX9a Oyc+O23mjR5wHPA7TKB8zesrAR CxeqViVF32QK05Z4MdXpawqBFu bGU+VCLxggCenTbgNN7cLiIv u8quy0RpNTpzG9CrWURfPHlbPf c8NXNpSNI3uNS4uO8hCBZiWGmo y9E2xNU4J2RglqZewf8ny4yh NOTpDPeuO28gvONci2G6XWTylZ W6XXMugQwtGkYzuE09Ajz+PGNv iClmh8IdBbpkz6ilp7bjjWy1 CwRtOUMhmfTppUsuELA7q4GjVm 60U49sAMlbRWHkHQSiVGVzRCGe mGgjwg0heN2rTc6+PGNvbCB3 xNR5aN4fZWNyBsP1MCuxO515Ur MnsAYxHwisg6mho3uvvZm9GzVe LDBostFbnZeeBMT1f5VlWk12 O88oBDpdBQXaRMJhEFBlXYVnkM byth9drK4zSt5+DW3vp5ygzs42 dT01dDH+COAcOAG0qVjuMRzd MGNbbV8mMOonPkP2ZOHyAtNstF 78lVKoNVtgLu3keLpgqDziZZ1e ATZsbndwn803CsNok3nnYGEu sVBrHVzvLFR0O54ji1Q0VPHpZX SeBPQ8eZH1jG0tuBbpvajiiONj eDszgoRezTftTNfgBIqzI411 IHRvcDsnPlBhdGllbnQgTmFtZT j0A2IaBbw3NEYsyVbtLP9miIYa IZuaSp7ciLhcjRkeQA1cUROl vwuiz889UiNje1yjCKOqyGVpWY weIMC0Q16kv6L3JPHtFOTxEFN7 sPV5kW1alByzkljijHSdoKdr uxOpkQwqNGqoDRauJ258SMAptR soQiEqthAuRRSosGD4VS34QO83 aYZzu4M5jLY8I9VxEVYmixdl vvvncJH2NERpRAWfvA26Kx1bdB esPp3zERNxKMM7YTEfcIJbO9Xn qH2pYgObMSYgFTKsP7JyxKOp ZXkqH018LAtcXxG1OHAtfaLwD1 PhANQrtIjgMxI1c8U5Ur6CO1L2 UU19OZ46lVTmr9P1pAF5C9Gv XVEkseuovirucQJ8NRBdLKKsrZ 03Mk4koXnzUg5gVXXtXQE2TNMp cZRnS8JmvP6tRnMaARUzYTEm B3GiaYAcBVnhW125QSwpEuI4TH UgpbCeC0KtATQseFhfSnQ6r6P5 Nv1KKRk4VX71AV70hCJdd5Z4 jON1H9SzCTQovzkrbklotCC2TR MbTYIldB69Nn8thYgoQl0xGCZm LXG0SYAnuMDrM7JftT8uCsWz JFGuEPDsE5ZypYNvPXdmY146AZ okNwY5ZKEgirPdN1KoDPStdMra OlO5w6D4Xs7HUGBwDZ48SIV8 sPH1CJ84FA97H6XrCoszfBBbeG U+PHRhYmxlIHdpZHRoPScxMDAl CvWczUbzGB8uTp2jTOTfNKJx sYcxdJIeZoCft5lwPZVoKXpuQV 3amUcwT9PjyLO3KQBda2s7Aj57 Z87rU5RstXG+SIOmxBC7bQJ0 uR1pTuXnGtS3BRloK084BbDnmV XeWyive4hqb6hlsSb8MnE8CJZp epIiaYtnISY7g0JfQv31N38b IHdpZHRoPSIxNSUiIHZhbGlnbj 3hxN4rEf8+RJSocVI6eIV7sF4u SmBaWlH1QGgbU526JkYqvJJj Fmadf1deb6jokPp2BeQdTJPkac YskEgoXHG1c2XeSl32G4JdsZlm e4PvKmi6ov40wPTnr7E0uSR4 W8TsKDIssxdhyJUvcUftDB4rBG SrfoxrUCPmuD9xNNRvT8y0TrMj GlL3RZygJ9QrbdK9MAYoiCLm DSuiWOQ0N21qu3O5BPRaIQIgER B8sTS3fR3bwBexqknxjKCnfLxt edDmxHvaZJwvAYdbS498EMVa xXylFQSarE8kEGNimHQzkCssNX 2oJURluhxeOf4DHU2BMUKFKEDO QURLQFd9N7FkIbo8CKSmqAbe SI6ltWYrULqhEu6avIurdZgpQO 9xYACaiyimYPWijN4vQCBrmOVb rCftGK9tRMFpnsmdq232DaJf CPL5JTDveJLuN7NmiJ5zFdVtNB WmMICuG8QsiTJaSHfbC427FPys AoL1LYYhhpTnA7MhDLChqAcx HpF4d5F4Er3sOC2gPI9rKBUqPO 60OV07sWEqj9Q7iXZ7L1QbNEAb uwisofntqNY9OZHxENTsrZ11 oEJmKVecVl9qy8S7o467HUMpHT TxfS81Ao0jnUheFQZkwMWUlU8d wkvjn2etkidxFrLmLRDnWOo3 PTt0URWmiMitDmKeNMK0MsG4MF G0xLSixE1vmGussznasG2iHar+ JpfhFDKzjrD4O8LkDzf2HNVt cKpbGL5lsPHtCHovIn3znTqvnP jyJJ9jRSLvzbijYXYaoD5cAUXo hGWxlOorBM3uIXYcjahfb279 UeOzRSH1MJZwmDAiM0SaaZ9bGy FqAUDdVTNbU1FfrMNcFMntR068 CHsuWyF4YHWrqpKqP0WqWIIe oWllFxY6n9L2Bq5NPBhiMX51VC 22wMZxt8H9aKN5U3UgVGTvwpps khvqjRK7SNRvANZrkU82dSDl QFfqLz7bk0F2v796MHDkIUOmbN 29Eb8cwCwxBDMgcMSHjJ7yzqwc k0ggoxqjNlGrIUVnNKy7QVq0 VPLvfDazBkIbLOJ6HxM1MTG7oP VmaA8uyMghnebiiR4rEdb+TGFi NOOwh5Nwl3MnSH35MV49V2Xg PjwvdGFibGU+PHRhYmxlIHdpZH GuQRooMXIrAjRswHogQP7sJm5n UZCnOFUypVakzNMuFoOnd8yt BICxXXluOR9gyEqwG3UyrUI4OE Nvj7s3Oc57P22nA0WkeFN+PGNv gAG7gDB4sS8tPkJqDwE5VLzl S040YlLxeWRrBvnqh1qto1krrP i2UeReFOYasjXsqTeeZZE9d3Fk Eu18L94bIYeoKHWhNCShSRFg SCAjjUuazl6ewU7sSu9+PGNvbC G2fYZ2uS2eJuGsEjP9FEeiH983 KmYmzPTaIjjnY03eE6OpkEG+ DVNmAft6RPJxlXzkRJ7lhJAiRW thCi2jSWP2RgGpCiSfEOedD9Iq JSKxamrvtoyhvDX4ULHjXPQk wG33Pi6euZrqDi6tAUXwVNJ9QT LgvZVcO5WriL8cGkRmEDXsUHNc L7CuuZXdJPgwJ603LRwwWtN5 JKDtriWpV0LiJTFmvItjUbT2g3 D3Mc6WvYacrZEjQO1mPrAyWJp9 Y3FdObm0HNSfrJsnIW4cmIEp WVvfRi9hyUdxaAewHU1fZCTxcc gee603TuCfg4stBLGxhVTzXDis DHE3G14ua1I1FVCrYRDuNQL0 qLV2eL7eiBgxlosogVJmyAxrcj QkuOckUKonVDswW458FRVbvNyk PoNHJzt1I7AdUvd9CWXytNnp IP8feNHrZZbnOa5uuJakoSmuGF 5sFXIdszale136UxVvf4jpKVSk lQLyZGzrNXF4N70mk8P1JQSa KOXaEHL6fQO8dF3mrOpqsrixrE FujAtjinYivCjrEFdoOHidL412 OMKjdYmiVl6EXim8C8NvGyb6 HEIveRfiAF4ajGNzJGccDw8ppA ltuLtfUF1bZDCyazbbh630KjEs k2atLBCicGXjWSzvEYE3F51i b7T9UAKwMAYbPNQ9rPU7dI6sjY lnbjogbGVmdDsgdmVydGljYWwt WNxrQ900BANzqOzrEsIwfLWe OjwvdGQ+ZR45po97C8FeHjnoSw w4FEUzXBC7fEL0kH3cGOQdCMhp d0U3pKP0X7LdygMrlr1dm6rp YXBz (more content not included)... Normal [facility] Screenson 04-16-2022 Screens [id number]#[id number]:127 Normal [facility] Screens [id number]#1.00CD:127 Normal [facility] Ambulatory Visit Summaryon 0 04-15-2022 Ambulatory Visit Summary CHICO BAKER :1940 Visit Date:04/15/2022 Ambulatory Visit Instructions Your Diagnosis Penile rash Prostatitis Microhematuria BPH with obstruction/lower urinary tract symptoms History of kidney stones Tests Performed Urnls Dip Stick Auto w/o Microscopy POC 13827 CT Abdomen/Pelvis w/o Contrast -- Results Pending [...] Ivelisse Hassan MD Where: [facility] Patient Educationon 04-15-19 23 Patient Education Infectious [...] Follow these instructions at home: ? Take lhpl-gxq-xgcqfdy and prescription medicines only as told by [...] 05/07/2018 Docum (more content not included)... Normal [facility] URINALYSISOrdered By: Kirstie sanchez on 04-15-2022 Bacteria LM Ql (Urine sed) Trace /HPF Normal Trace/HPF [facility] UA Auto SS Bilirubin Ql (U) Negative (04/15/22 12:14 PM) Normal Negative [facility] UA Auto SS Calcium oxalate crystals LM [...] Interpretation Code Negative [facility] UA Auto SS [place].plasma/[place] .RBC (Bld) [Mass ratio] 21-30 /HPF Invalid [...] [facility] UA Auto SS Urobilinogen Qn (U) 0.4517607 {Nikki'U}/dL Normal 0.0 - 1.0 EU/dL [facility] UA Auto SS WBC Auto Ql (U) 1+ *ABN* (04/15/22 12:14 PM) Invalid Interpretation Code Negative [facility] UA Auto SS WBC LM.HPF (Urine sed) [#/Area] 0-5 /HPF Normal 0-5/HPF [facility] UA Auto SS Urinalysison 04-15-2022 Bacteria LM Ql (Urine sed) TRACE Normal Trace [facility] Comment on above: Performed By: #### 1 [id number] ####[facility] [address] [place] [address] Bilirubin Ql (U) Negative Normal Negative [facility] Comment on above: Performed By: #### 1 [id number] ####[facility] [address] [place] [address] Calcium oxalate crystals LM Ql (Urine sed) Present Normal [facility] Comment on above: Performed By: #### 1 [id number] ####[facility] [address] [place] [address] Clarity (U) CLEAR Normal Clear [facility] Comment on above: Performed By: #### 1 [id number] ####[address] [place] [address] Color (U) YELLOW Normal Yellow [facility] Comment on above: Performed By: #### 1 [id number] ####[address] [address] Epithelial cells.squamous LM.HPF (Urine sed) [#/Area] 0-2 Normal 0-2 [facility] Comment on above: Performed By: #### 1 [id number] ####[facility] [address] [place] [address] Glucose Test strip (U) [Mass/Vol] Negative Normal Negative [facility] Comment on above: Performed By: #### 1 [id number] ####[facility] [address] [place] [address] Hemoglobin Ql (U) 3+ Abnormal Negative [facility] Comment on above: Performed By: #### 1 [id number] ####[address] [address] Ketones (U) [Mass/Vol] TRACE Abnormal Negative [facility] Comment on above: Performed By: #### 1 [id number] ####[address] [address] [place].plasma/[place] .RBC (Bld) [Mass ratio] 21-30 Abnormal 0-3 [facility] Comment on above: Performed By: #### 1 [id number] ####[facility] [address] [place] [address] Mucus Ql (Urine sed) TRACE Normal [facility] Comment on above: Performed By: #### 1 [id number] ####[address] [address] Nitrite Ql (U) Negative Normal Negative [facility] Comment on above: Performed By: #### 1 [id number] ####[address] [address] pH (U) 6.0 [pH] Invalid Interpretation Code 5.0-9.0 [facility] Comment on above: Performed By: #### 1 [id number] ####[address] [address] Protein (U) [Mass/Vol] Negative Normal Negative [facility] Comment on above: Performed By: #### 1 [id number] ####[address] [address] Specific gravity (U) [Rel density] >=1.030 Invalid Interpretation Code 1.005-1.030 [facility] Comment on above: Performed By: #### 1 [id number] ####[address] [address] Type of Urine collection method Random Urine Normal [facility] Comment on above: Performed By: #### 1 [id number] ####[address] [address] Urobilinogen Qn (U) 0.2 {Nikki'U}/dL Normal 0.0-1.0 [facility] Comment on above: Performed By: #### 1 [id number] ####[address] [address] WBC Auto Ql (U) 1+ Abnormal Negative [facility] Comment on above: Performed By: #### 1 [id number] ####[facility] [place] [address] WBC LM.HPF (Urine sed) [#/Area] 0-5 Normal 0-5 [facility] Comment on above: Performed By: #### 1 [id number] ####[facility] [address] [place] [address] Urology Office/Clinic Noteon 04-15-2022 Urology Office/Clinic Note [...] done 02/18/22 was neg. Micro UA done showed 4-20 RBCs. UA today shows large [...] allergy prep. Pt having scan done at [facility] in May for aneurysm, will give [...] Medical Histo (more content not included)... Normal [facility] Comment on above: Result Comment: Elec tronically [...] Interpretation Code Negative [facility] UA Auto SS [place].plasma/[place] .RBC (Bld) [Mass ratio] 4-20 /HPF Normal [...] [facility] UA Auto SS Urobilinogen Qn (U) 0.8661490 {Nikki'U}/dL Normal 0.0 - 1.0 EU/dL [facility] UA Auto SS WBC Auto Ql (U) 1+ *ABN* (02/11/22 10:38 AM) Invalid Interpretation Code Negative [facility] UA Auto SS WBC LM.HPF (Urine sed) [#/Area] 0-5 /HPF Normal 0-5/HPF [facility] UA Auto SS Basic Metabolic Panelon 12-0 Anion gap [Moles/Vol] 10.4 mmol/L Normal 6.0-15.0 [facility] Comment on above: Performed By: #### C BC, BMP #### [facility] [address] Calcium [Mass/Vol] 8.4 mg/dL Normal 8.2-10.2 [facility] Comment on above: Performed By: #### C BC, BMP #### [facility] [address] Chloride [Moles/Vol] 101 mmol/L Normal 95-114 [facility] Comment on above: Performed By: #### C BC, BMP #### [facility] [address] CO2 [Moles/Vol] 28.2 mmol/L Normal 22.0-30.0 [facility] Comment on above: Performed By: #### C BC, BMP #### [address] Creatinine [Mass/Vol] 0.94 mg/dL Normal 0.64-1.27 [facility] Comment on above: Performed By: #### C BC, BMP #### [place] [address] [place] Creatinine Clr Calc Pharmacy 57.50 [facility] Comment on above: Result Comment: PERF ORMED BY: [place] [address] PATH[employer] ZENA CASTELLON M.D. Performed By: #### C BC, BMP #### [address] Estimated GFR ( Jojo > 60 [facility] Comment on above: Result Comment: GFR estimated reference range: According to KDOQI guidelines, <60 ml/min/1.73m2 is sufficient to diagnose a patient with chronic kidney disease. Performed By: #### C BC, BMP #### [place] [address] [place] Estimated GFR (Non- Am > 60 [facility] Comment on above: Performed By: #### C BC, BMP #### [place] [address] [place] Glucose [Mass/Vol] 109 mg/dL High 70-100 [facility] Comment on above: Result Comment: [facility] Glucose Reference Range is dependent on time and content of last meal. Glucose of more than 200 mg/dL in a nonstressed, ambulatory subject supports the diagnosis of Diabetes Mellitus. ADA recommended reference range Performed By: #### C BC, BMP #### [facility] [address] Potassium [Moles/Vol] 4.6 mmol/L Normal 3.5-5.1 [facility] Comment on above: Performed By: #### C BC, BMP #### [facility] [address] Sodium [Moles/Vol] 135 mmol/L Low 136-146 [facility] Comment on above: Performed By: #### C BC, BMP #### [facility] [address] Urea nitrogen [Mass/Vol] 11 mg/dL Normal 9-23 [facility] Comment on above: Performed By: #### C BC, BMP #### [facility] [address] [place] [address] [place] Basophils Auto (Bld) [#/Vol] Ordered By: Raul Quan on 02-05-2022 Basophils (Bld) [#/Vol] 0.1 10*3/uL 0.0-0.2 [facility] Basophils/100 WBC Auto (Bld) Ordered By: Raul Quan on 02-05-2022 Basophils/100 WBC (Bld) 0.6 % . [facility] Complete Blood Count Auto Di ffon 02-05-2022 Basophils (Bld) [#/Vol] 0.1 10*3/uL Normal 0.0-0.2 [facility] Comment on above: Result Comment: PERF ORMED BY: [place] [address] PATHOLOGIST [employer] ZENA CASTELLON M.D. Performed By: #### C BC, BMP #### [facility] [address] Basophils/100 WBC (Bld) 0.6 % Normal . [facility] Comment on above: Performed By: #### C BC, BMP #### [address] Eosinophils (Bld) [#/Vol] 0.1 10*3/uL Normal 0.0-0.45 [facility] Comment on above: Performed By: #### C BC, BMP #### [address] Eosinophils/100 WBC (Bld) 0.7 % Normal . [facility] Comment on above: Performed By: #### C SEAN, BMP #### [address] Erythrocyte distribution width (RBC) [Ratio] 13.8 % Normal 12.0-14.8 [facility] Comment on above: Performed By: #### C BC, BMP #### [address] Hematocrit (Bld) [Volume fraction] 34.6 % Low 38.8-50.0 [facility] Comment on above: Performed By: #### C SEAN, BMP #### [address] Hemoglobin (Bld) [Mass/Vol] 11.4 g/dL Low 13.0-17.0 [facility] Comment on above: Performed By: #### C BC, BMP #### [address] Lymphocytes (Bld) [#/Vol] 1.5 10*3/uL Normal 1.00-4.8 [facility] Comment on above: Performed By: #### C BC, BMP #### [address] Lymphocytes/100 WBC (Bld) 14.4 % Normal . [facility] Comment on above: Performed By: #### C BC, BMP #### [address] MCH (RBC) [Entitic mass] 30.1 pg Normal 27.5-35.2 [facility] Comment on above: Performed By: #### C BC, BMP #### [facility] [address] MCV (RBC) [Entitic vol] 91.6 fL Normal 83.5-101 [facility] Comment on above: Performed By: #### C BC, BMP #### [facility] [address] Mean Corpuscular HGB Conc 32.9 g/dL Normal 32.5-35.6 [facility] [facility] Comment on above: Performed By: #### C BC, BMP #### [address] Monocytes (Bld) [#/Vol] 1.5 10*3/uL High 0.0-0.8 [facility] Comment on above: Performed By: #### C BC, BMP #### [address] Monocytes/100 WBC (Bld) 14.8 % Normal . [facility] Comment on above: Performed By: #### C BC, BMP #### [address] Neutrophils (Bld) [#/Vol] 7.1 10*3/uL Normal 1.8-7.7 [facility] Comment on above: Performed By: #### C BC, BMP #### [place] [address] [place] Neutrophils/100 WBC (Bld) 69.5 % Normal . [facility] Comment on above: Performed By: #### C BC, BMP #### [address] NRBC% 0.1 /100{WBC} Normal 0-0.5 [facility] Comment on above: Performed By: #### C BC, BMP #### [address] Platelet mean volume (Bld) [Entitic vol] 7.9 fL Normal 6.6-10.1 [facility] Comment on above: Performed By: #### C BC, BMP #### [facility] [address] [place] [address] [place] Platelets (Bld) [#/Vol] 142 10*3/uL Significant change down 150-450 [facility] Comment on above: Performed By: #### C BC, BMP #### [facility] [address] RBC (Bld) [#/Vol] 3.77 10*6/uL Low 3.90-5.60 [facility] Comment on above: Performed By: #### C BC, BMP #### [facility] [address] WBC (Bld) [#/Vol] 10.3 10*3/uL Normal 4.1-10.5 [facility] Comment on above: Performed By: #### C BC, BMP #### [facility] [address] Creatinine and Glomerular fi ltration rate.predicted panel (S/P/Bld)Ordered By: Raul Quan on 02-05-2022 Creatinine [Mass/Vol] 0.94 mg/dL 0.64-1.27 [facility] Eosinophils Auto (Bld) [#/Vo l]Ordered By: Raul Quan on 02-05-2022 Eosinophils (Bld) [#/Vol] 0.1 10*3/uL 0.0-0.45 [facility] Eosinophils/100 WBC Auto (Bl d)Ordered By: Raul Quan on 02-05-2022 Eosinophils/100 WBC (Bld) 0.7 % . [facility] Erythrocyte distribution wid th Auto (RBC) [Ratio]Ordered By: Raul Quan on 02-05-2022 Erythrocyte distribution width (RBC) [Ratio] 13.8 % 12.0-14.8 [facility] Estimated glomerular filtrat ion rate (GFR) non- AmericanOrdered By: Raul Quan on 02-05-2022 GFR/1.73 sq M.predicted among non-blacks MDRD (S/P/Bld) [Vol rate/Area] > 60 mL/Min [facility] Hematocrit Auto (Bld) [Volum e fraction]Ordered By: Raul Quan on 02-05-2022 Hematocrit (Bld) [Volume fraction] 34.6 % 38.8-50.0 [facility] Hemoglobin [Mass/volume] in BloodOrdered By: Raul Quan on 02-05-2022 Hemoglobin (Bld) [Mass/Vol] 11.4 g/dL 13.0-17.0 [facility] Leukocytes [#/volume] correc shyann for nucleated erythrocytes in Blood by Automated counOrdered By: Raul Quan on 02-05-2022 WBC corrected for nucl RBC Auto (Bld) [#/Vol] 10.3 10*3/uL 4.1-10.5 [facility] Lymphocytes Auto (Bld) [#/Vo l]Ordered By: Raul Quan on 02-05-2022 Lymphocytes (Bld) [#/Vol] 1.5 10*3/uL 1.00-4.8 [facility] Lymphocytes/100 WBC Auto (Bl d)Ordered By: Raul Quan on 02-05-2022 Lymphocytes/100 WBC (Bld) 14.4 % . [facility] MCH Auto (RBC) [Entitic mass ]Ordered By: Raul Quan on 02-05-2022 MCH (RBC) [Entitic mass] 30.1 pg 27.5-35.2 [facility] MCHC Auto (RBC) [Mass/Vol]Or dered By: Ralu Quan on 02-05-2022 MCHC (RBC) [Mass/Vol] 32.9 g/dL 32.5-35.6 [facility] MCV Auto (RBC) [Entitic vol] Ordered By: Raul Quan on 02-05-2022 MCV (RBC) [Entitic vol] 91.6 fL 83.5-101 [facility] Monocytes Auto (Bld) [#/Vol] Ordered By: Raul Quan on 02-05-2022 Monocytes (Bld) [#/Vol] 1.5 10*3/uL 0.0-0.8 [facility] Monocytes/100 WBC Auto (Bld) Ordered By: Raul Quan on 02-05-2022 Monocytes/100 WBC (Bld) 14.8 % . [facility] Neutrophils Auto (Bld) [#/Vo l]Ordered By: Raul Quan on 02-05-2022 Neutrophils (Bld) [#/Vol] 7.1 10*3/uL 1.8-7.7 [facility] Neutrophils/100 WBC Auto (Bl d)Ordered By: Raul Quan on 02-05-2022 Neutrophils/100 WBC (Bld) 69.5 % . [facility] No Panel InformationOrdered By: Raul Quan on 02-05-2022 Estimated GFR () > 60 mL/Min [facility] Comment on above: GFR estimated refere nce range: According to KDOQI guidelines, <60 ml/min/1.73m2 is sufficient to diagnose a patient with chronic kidney disease. Pharmacy Creatinine Clearance (Chem 57.50 [facility] Nucleated erythrocytes [Pres ence] in Blood by Automated countOrdered By: Raul Quan on 02-05-2022 Nucleated RBC Auto Ql (Bld) 0.1 /100{WBC} 0-0.5 [facility] Platelet mean volume Auto (B ld) [Entitic vol]Ordered By: Raul Quan on 02-05-2022 Platelet mean volume (Bld) [Entitic vol] 7.9 fL 6.6-10.1 [facility] Platelets Auto (Bld) [#/Vol] Ordered By: Raul Quan on 02-05-2022 Platelets (Bld) [#/Vol] 142 10*3/uL 150-450 [facility] Comment on above: Delta: 198 on RBC Auto (Bld) [#/Vol]Ordere d By: Raul Quan on 02-05-2022 RBC (Bld) [#/Vol] 3.77 10*6/uL 3.90-5.60 [facility] Serum or plasma anion gap de terminationOrdered By: Raul Quan on 02-05-2022 Anion gap [Moles/Vol] 10.4 mmol/L 6.0-15.0 [facility] Serum or plasma calcium richy urement (mass/volume)Ordered By: Raul Quan on 02-05-2022 Calcium [Mass/Vol] 8.4 mg/dL 8.2-10.2 [facility] Serum or plasma chloride young surement (moles/volume)Ordered By: Raul Quan on 02-05-2022 Chloride [Moles/Vol] 101 mmol/L 95-114 [facility] Serum or plasma glucose richy urement (mass/volume)Ordered By: Raul Quan on 02-05-2022 Glucose [Mass/Vol] 109 mg/dL 70-100 [facility] Comment on above: ADA recommended refe rence rangeRandom Glucose Reference Range is dependent on time and content of last meal. Glucose of more than 200 mg/dL in a nonstressed, ambulatory subject supports the diagnosis of Diabetes Mellitus. Serum or plasma potassium me asurement (moles/volume)Ordered By: Raul Quan on 02-05-2022 Potassium [Moles/Vol] 4.6 mmol/L 3.5-5.1 [facility] Serum or plasma sodium measu rement (moles/volume)Ordered By: Raul Quan on 02-05-2022 Sodium [Moles/Vol] 135 mmol/L 136-146 [facility] Serum or plasma total carbon dioxide measurement (moles/volume)Ordered By: Raul Quan on 02-05-2022 CO2 [Moles/Vol] 28.2 mmol/L 22.0-30.0 [facility] Serum or plasma urea nitroge n measurement (mass/volume)Ordered By: Raul Quan on 02-05-2022 Urea nitrogen [Mass/Vol] 11 mg/dL 9-23 [facility] WBC Auto (Bld) [#/Vol]Ordere d By: Raul Quan on 02-05-2022 WBC (Bld) [#/Vol] 10.3 10*3/uL 4.1-10.5 [facility] Antibody Identificationon Antibody Identification COLD Normal [facility] Basic Metabolic Panelon 01-08 Anion gap [Moles/Vol] 13.9 mmol/L Normal 6.0-15.0 [facility] Comment on above: Performed By: #### C BC, BMP #### [facility] [address] [place] [address] [place] Calcium [Mass/Vol] 9.0 mg/dL Normal 8.2-10.2 [facility] Comment on above: Performed By: #### C BC, BMP #### [facility] [address] [place] [address] [place] Chloride [Moles/Vol] 101 mmol/L Normal 95-114 [facility] Comment on above: Performed By: #### C BC, BMP #### [facility] [address] CO2 [Moles/Vol] 24.4 mmol/L Normal 22.0-30.0 [facility] Comment on above: Performed By: #### C BC, BMP #### [facility] [address] [place] [address] [place] Creatinine [Mass/Vol] 0.81 mg/dL Normal 0.64-1.27 [facility] Comment on above: Performed By: #### C BC, BMP #### [facility] [address] [place] [address] [place] Creatinine Clr Calc Pharmacy 66.73 [facility] Comment on above: Result Comment: PERF ORMED BY: [facility] [address] [place] [address] PATHOLOGIST [employer] ZENA CASTELLON M.D. Performed By: #### C BC, BMP #### [facility] [address] Estimated GFR ( Jojo > 60 [facility] Comment on above: Result Comment: GFR estimated reference range: According to KDOQI guidelines, <60 ml/min/1.73m2 is sufficient to diagnose a patient with chronic kidney disease. Performed By: #### C BC, BMP #### [facility] [address] Estimated GFR (Non- Am > 60 Normal [facility] Comment on above: Performed By: #### C BC, BMP #### [facility] [address] Glucose [Mass/Vol] 124 mg/dL High 70-100 [facility] Comment on above: Result Comment: [facility] Glucose Reference Range is dependent on time and content of last meal. Glucose of more than 200 mg/dL in a nonstressed, ambulatory subject supports the diagnosis of Diabetes Mellitus. ADA recommended reference range Performed By: #### C BC, BMP #### [address] Potassium [Moles/Vol] 4.3 mmol/L Normal 3.5-5.1 [facility] Comment on above: Performed By: #### C BC, BMP #### [address] Sodium [Moles/Vol] 135 mmol/L Low 136-146 [facility] Comment on above: Performed By: #### C SEAN, BMP #### [address] Urea nitrogen [Mass/Vol] 14 mg/dL Normal 9-23 [facility] Comment on above: Performed By: #### C BC, BMP #### [address] Blood Bank Pathologist Manny oneill 02-04-2022 Blood Bank Pathologist Review Sent to Pathology Normal [facility] Comment on above: Result Comment: PERF ORMED BY: [place] [address] PATHOLOGIST [employer]NAGER ZENA CASTELLON M.D. Complete Blood Count Auto Di ffon 02-04-2022 Basophils (Bld) [#/Vol] 0.1 10*3/uL Normal 0.0-0.2 [facility] Comment on above: Result Comment: PERF ORMED BY: [address] [place] [address] PATHOLOGIST [employer]NAGER ZENA CASTELLON M.D. Performed By: #### C BC #### [address] Basophils/100 WBC (Bld) 0.6 % Normal . [facility] Comment on above: Performed By: #### C BC #### [address] Eosinophils (Bld) [#/Vol] 0.1 10*3/uL Normal 0.0-0.45 [facility] Comment on above: Performed By: #### C BC #### [address] Eosinophils/100 WBC (Bld) 0.9 % Normal . [facility] Comment on above: Performed By: #### C BC #### [address] Erythrocyte distribution width (RBC) [Ratio] 13.7 % Normal 12.0-14.8 [facility] Comment on above: Performed By: #### C BC #### [address] Hematocrit (Bld) [Volume fraction] 37.5 % Low 38.8-50.0 [facility] Comment on above: Performed By: #### C BC #### [address] Hemoglobin (Bld) [Mass/Vol] 12.4 g/dL Low 13.0-17.0 [facility] Comment on above: Performed By: #### C BC #### [place] [address] [place] Lymphocytes (Bld) [#/Vol] 1.5 10*3/uL Normal 1.00-4.8 [facility] Comment on above: Performed By: #### C BC #### [address] Lymphocytes/100 WBC (Bld) 16.4 % Normal . [facility] Comment on above: Performed By: #### C BC #### [facility] [address] MCH (RBC) [Entitic mass] 30.2 pg Normal 27.5-35.2 [facility] Comment on above: Performed By: #### C BC #### [address] MCV (RBC) [Entitic vol] 91.5 fL Normal 83.5-101 [facility] Comment on above: Performed By: #### C BC #### [address] Mean Corpuscular HGB Conc 33.0 g/dL Normal 32.5-35.6 [facility] Comment on above: Performed By: #### C BC #### [address] Monocytes (Bld) [#/Vol] 1.1 10*3/uL High 0.0-0.8 [facility] Comment on above: Performed By: #### C BC #### [address] Monocytes/100 WBC (Bld) 12.0 % Normal . [facility] Comment on above: Performed By: #### C BC #### [address] Neutrophils (Bld) [#/Vol] 6.5 10*3/uL Normal 1.8-7.7 [facility] Comment on above: Performed By: #### C BC #### [address] Neutrophils/100 WBC (Bld) 70.1 % Normal . [facility] Comment on above: Performed By: #### C BC #### [address] NRBC% 0.0 /100{WBC} Normal 0-0.5 [facility] Comment on above: Performed By: #### C BC #### [address] Platelet mean volume (Bld) [Entitic vol] 8.5 fL Normal 6.6-10.1 [facility] Comment on above: Performed By: #### C BC #### [address] Platelets (Bld) [#/Vol] 198 10*3/uL Normal 150-450 [facility] Comment on above: Performed By: #### C BC #### [address] RBC (Bld) [#/Vol] 4.10 10*6/uL Normal 3.90-5.60 [facility] Comment on above: Performed By: #### C BC #### [address] WBC (Bld) [#/Vol] 9.3 10*3/uL Normal 4.1-10.5 [facility] Comment on above: Performed By: #### C BC #### [address] Direct [place] 02-04-2022 Polyspecific AHG Negative Normal [facility] [place] 02-04-2022 L ------ Specimen: [id number] Received: 02/04/22 Status: JUSTINA Henley Num: [id number] Spec Type: Impression Subm Dr: Rocio Mac DO Tissues: PATHDEVINK Procedures: PATHREVIEW Age/ Patient Sex Location Account Attending Physician Chico Baker 81/M 4N [id number] Raul Quan MD SPEC NUM: [id number] RECD: 02/04/22 STATUS: JUSTINA HENLEY NUM: [id number] SHYANN: 02/04/22 DR: Rocio Mac DO ENTERED: 02/04/[address]: LUMA TYPE: Impression DEPT: [place] ORDERED: PATHREVIEW ORDERED: PATHREVIEW Blood Bank Results Date Time Test Result Flag (u) Normal Range 02/04/22824 Ab Screen POSITIVE AB ID 02/04/22824 Cold Ab Pathologist Review A cold antibody with no apparent specificity was detectable in the serum at 22C and colder. Due to the low temperature agglutination characteristics, these antibodies are considered clinically insignificant. Specimen: [id number] Received: 02/04/22 Status: JUSTINA Henley Num: [id number] Spec Type: Impression Subm Dr: Rocio Mac DO Tissues: PATHBBK Procedures: PATHREVIEW Patient: Chico Baker [id number] (Continued) Signed (signature on file) Judah Alvarado MD 02/04/22 [id number] Normal [facility] Type and Screenon 02-04-2022 ABO and Rh group Nom (Bld) Blood group A Rh(D) positive Normal [facility] Comment on above: Result Comment: PERF ORMED BY: [facility] [address] [place] [address] PATHOLOGIST [employer]GER ZENA CASTELLON M.D. Covid[facility]19 [facility]on 01-07 SARS-CoV-2 (COVID-19) RNA JESSIE+probe Ql (Unsp spec) Not detected Normal NOT DETECTED [facility] [place] [facility] Comment on above: Result Comment: This test is not yet approved or cleared by the [place] FDA. When there are no FDA-approved or cleared tests available, and other criteria are met, FDA can make tests available under an emergency access mechanism called an Emergency Use Authorization (EUA). The EUA for this test is supported by the Medical Equipment Repair Technician of Health and Human Service's (HHS's) declaration [...] consistent with SARS-CoV-2. Performed By: #### [facility] #### [facility] [place] [facility] [address] [place] [address] Dr. Jodi Oglesby US carotid doppler BIon - US carotid doppler BI [facility] Main Felt [address] [place] [address] Ultrasound Report Signed Patient: Chico Baker MR#: [id number] : 1940 Acct:[id number] Age/Sex: 81 / M ADM Date: 01/20/22 Loc: [facility] Room: Type: [facility] Attending Dr: Tamar Perea MAGNETIC OBSERVER-C Ordering Provider: Tamar Perea APRN Date of [...] Raul Quan M.D.01/20/2022 11:32 AM Dictation Location: [facility] Tech: Aby Mueller Transcribed By: PWS 01/20/221131 Dictated By: Raul Quan MD 01/20/221129 Signed By: 01/20/22 113 [facility] CBC AUTO DIFFon 12-08-2021 BASO # 0.1 103/ul Normal 0.0-0.1 [facility] [place] [facility] Comment on above: Performed By: #### D ATA1C #### [facility] [place] [facility] [address] [place] [address] Dr. Jodi Oglesby Basophils/100 WBC (Bld) 0.5 % Normal 0.2-2.0 [facility] [place] [facility] Comment on above: Performed By: #### D ATA1C #### [facility] [place] [facility] [address] [address] [address] Jodi Oglesby EO # 0.1 103/ul Normal 0.0-0.7 [facility] [place] [facility] Comment on above: Performed By: #### D ATA1C #### [facility] [place] [facility] [address] [address] [address] Jodi Oglesby Eosinophils/100 WBC (Bld) 1.4 % Normal 0.9-7.0 [facility] [place] [facility] Comment on above: Performed By: #### D ATA1C #### [facility] [place] [facility] [address] [place] [address] Dr. Jodi Oglesby Erythrocyte distribution width (RBC) [Ratio] 13.0 % Normal 11.0-15.0 [facility] Comment on above: Performed By: #### Chavez ATA1C #### [facility] [place] [facility] [address] [place] [address] Dr. Jodi Oglesby Hematocrit (Bld) [Volume fraction] 36.1 % Critically low 42.0-54.0 [facility] Comment on above: Performed By: #### D ATA1C #### [facility] [place] [facility] [address] [place] [address] Dr. Jodi Oglesby Hemoglobin (Bld) [Mass/Vol] 11.2 g/dL Critically low 14.0-18.0 [facility] [place] [facility] Comment on above: Performed By: #### D ATA1C #### [facility] [place] [facility] [address] [place] [address] Dr. Jodi Oglesby IG # 0.04 10e3/ul Critically high 0.00-0.03 [facility] [place] [facility] Comment on above: Performed By: #### D ATA1C #### [facility] [place] [facility] [address] [place] [address] Dr. Jodi Oglesby IG % 0.4 % Normal 0.0-0.5 [facility] [place] [facility] Comment on above: Performed By: #### D ATA1C #### [facility] [place] [facility] [address] [address] [address] Jodi Oglesby LYMPH # 1.8 103/ul Normal 1.2-3.8 [facility] [place] [facility] Comment on above: Performed By: #### D ATA1C #### [facility] [place] [facility] [address] [place] [address] Dr. Jodi Oglesby Lymphocytes/100 WBC (Bld) 17.2 % Critically low 20.5-60.0 [facility] [place] [facility] Comment on above: Performed By: #### D ATA1C #### [facility] [place] [facility] [address] [place] [address] Dr. Jodi Oglesby MANUAL DIFF REQ NO Normal [facility] Comment on above: Performed By: #### D ATA1C #### [facility] [place] [facility] [address] [place] [address] Dr. Jodi Oglesby MCH (RBC) [Entitic mass] 30.4 pg Normal 25.9-34.0 [facility] Comment on above: Performed By: #### D ATA1C #### [facility] [place] [facility] [address] [place] [address] Dr. Jodi Oglesby MCHC (RBC) [Mass/Vol] 31.0 g/dL Normal 29.9-35.2 [facility] [place] [facility] Comment on above: Performed By: #### D ATA1C #### [facility] [place] [facility] [address] [place] [address] Dr. Jodi Oglesby MCV (RBC) [Entitic vol] 98.1 fL Critically high 80.0-94.0 [facility] Comment on above: Performed By: #### D ATA1C #### [facility] [place] [facility] [address] [place] [address] Dr. Jodi Oglesby MONO # 1.0 103/ul Critically high 0.3-0.8 [facility] [place] [facility] Comment on above: Performed By: #### D ATA1C #### [facility] [place] [facility] [address] [place] [address] Dr. Jodi Oglesby Monocytes/100 WBC (Bld) 9.8 % Normal 1.7-12.0 [facility] Comment on above: Performed By: #### D ATA1C #### [facility] [place] [facility] [address] [address] [address] Jodi Oglesby NEUT # 7.3 103/ul Critically high 1.4-6.5 [facility] [place] [facility] Comment on above: Performed By: #### D ATA1C #### [facility] [place] [facility] [address] [place] [address] Dr. Jodi Oglesby Neutrophils/100 WBC (Bld) 70.7 % Normal 43.0-75.0 [facility] [place] [facility] Comment on above: Performed By: #### D ATA1C #### [facility] [place] [facility] [address] [place] [address] Dr. Jodi Oglesby Platelet mean volume (Bld) [Entitic vol] 9.1 fL Critically low 9.5-13.5 [facility] [place] [facility] Comment on above: Performed By: #### D ATA1C #### [facility] [place] [facility] [address] [place] [address] Dr. Jodi Oglesby PLT 214 103/ul Normal 150-450 [facility] [place] [facility] Comment on above: Performed By: #### D ATA1C #### [facility] [place] [facility] [address] [place] [address] Dr. Jodi Oglesby RBC 3.68 106/ul Critically low 4.70-6.10 [facility] [place] [facility] Comment on above: Performed By: #### D ATA1C #### [facility] [place] [facility] [address] [place] [address] Dr. Jodi Oglesby WBC 10.3 103/ul Normal 4.0-11.0 [facility] [place] [facility] Comment on above: Performed By: #### D ATA1C #### [facility] [place] [facility] [address] [place] [address] Dr. Jodi Oglesby PROF CHEM 8 (BAS METB)on Anion gap [Moles/Vol] 9.7 mmol/L Normal [facility] [place] [facility] Comment on above: Performed By: #### C BC #### [facility] [place] [facility] [address] [place] [address] Dr. Jodi Oglesby Calcium [Mass/Vol] 8.9 mg/dL Normal 8.5-10.1 [facility] [place] [facility] Comment on above: Performed By: #### C BC #### [facility] [place] [facility] [address] [address] [address] Jodi Oglesby Chloride [Moles/Vol] 102 mmol/L Normal 98-107 [facility] [place] [facility] Comment on above: Performed By: #### C BC #### [facility] [place] [facility] [address] [place] [address] Dr. Jodi Oglesby CO2 [Moles/Vol] 31.0 mmol/L Normal 21.0-32.0 [facility] [place] [facility] Comment on above: Performed By: #### C BC #### [facility] [place] [facility] [address] [place] [address] Dr. Jodi Oglesby Creatinine [Mass/Vol] 0.85 mg/dL Normal 0.70-1.30 [facility] [place] [facility] Comment on above: Performed By: #### C BC #### [facility] [place] [facility] [address] [place] [address] Dr. Jodi Oglesby EGFR-AF MONTENEGRIN >60 Normal >=60 [facility] [place] [facility] Comment on above: Performed By: #### C BC #### [facility] [place] [facility] [address] [place] [address] Dr. Jodi Oglesby EGFR-NON AF MONTENEGRIN >60 Normal >=60 [facility] [place] [facility] Comment on above: Performed By: #### C BC #### [facility] [place] [facility] [address] [place] [address] Dr. Jodi Oglesby Glucose [Mass/Vol] 106 mg/dL Normal 74-106 [facility] [place] [facility] Comment on above: Performed By: #### C BC #### [facility] [address] [place] [address] Dr. Jodi Oglesby Potassium [Moles/Vol] 4.7 mmol/L Normal 3.5-5.1 [facility] [place] [facility] Comment on above: Performed By: #### C BC #### [facility] [place] [facility] [address] [place] [address] Dr. Jodi Oglesby Sodium [Moles/Vol] 138 mmol/L Normal 136-145 [facility] [place] [facility] Comment on above: Performed By: #### C BC #### [facility] [place] [facility] [address] [place] [address] Dr. Jodi Oglesby Urea nitrogen [Mass/Vol] 14.0 mg/dL Normal 7.0-18.0 [facility] Comment on above: Performed By: #### C BC #### [facility] [place] [facility] [address] [place], [place] [address] Dr. Jodi Oglesby Urea nitrogen/Creatinine [Mass ratio] 16.5 mg/mg Normal [facility] Comment on above: Performed By: #### C BC #### [facility] [place] [facility] [address] [place], [place] [address] Dr. Jodi Oglesby XR CHEST 2 Von [...] ROCIO RICARDO Date: 2021-12-08 16:20 Normal [facility] [place] [facility] Covid-19 PCR ([facility])on 11-07 SARS-CoV-2 (COVID-19) RNA JESSIE+probe Ql (Unsp spec) Not detected Normal NOT DETECTED [facility] [place] [facility] Comment on above: Result Comment: This test is not yet approved or cleared by the [place] FDA. When there are no FDA-approved or cleared tests available, and other criteria are met, FDA can make tests available under an emergency access mechanism called an Emergency Use Authorization (EUA). The EUA for this test is supported by the [place] of Health and Human Service's (HHS's) declaration [...] consistent with SARS-CoV-2. Performed By: #### C VDTBH #### [facility] [place] [facility] [address] [place] [address] Dr. Jodi Oglesby CBC AUTO DIFFon 11-11-2021 BASO # 0.1 103/ul Normal 0.0-0.1 [facility] Comment on above: Performed By: #### C BC #### [facility] [place] [facility] [address] [place] [address] Dr. Jodi Oglesby Basophils/100 WBC (Bld) 0.5 % Normal 0.2-2.0 [facility] Comment on above: Performed By: #### C BC #### [facility] [place] [facility] [address] [place] [address] Dr. Jodi Oglesby EO # 0.2 103/ul Normal 0.0-0.7 [facility] Comment on above: Performed By: #### C BC #### [facility] [place] [facility] [address] [place] [address] Dr. Jodi Oglesby Eosinophils/100 WBC (Bld) 1.9 % Normal 0.9-7.0 [facility] Comment on above: Performed By: #### C BC #### [facility] [place] [facility] [address] [place] [address] Dr. Jodi Oglesby Erythrocyte distribution width (RBC) [Ratio] 13.6 % Normal 11.0-15.0 [facility] Comment on above: Performed By: #### C BC #### [facility] [place] [facility] [address] [place] [address] Dr. Jodi Oglesby Hematocrit (Bld) [Volume fraction] 28.6 % Critically low 42.0-54.0 [facility] Comment on above: Performed By: #### C BC #### [facility] [place] [facility] [address] [place] [address] Dr. Jodi Oglesby Hemoglobin (Bld) [Mass/Vol] 9.4 g/dL Critically low 14.0-18.0 [facility] Comment on above: Performed By: #### C BC #### [facility] [place] [facility] [address] [place] [address] Dr. Jodi Oglesby IG # 0.08 10e3/ul Critically high 0.00-0.03 [facility] Comment on above: Performed By: #### C BC #### [facility] [place] [facility] [address] [place] [address] Dr. Jodi Oglesby IG % 0.8 % Critically high 0.0-0.5 [facility] Comment on above: Performed By: #### C BC #### [facility] [place] [facility] [address] [place] [address] Dr. Jodi Oglesby LYMPH # 1.3 103/ul Normal 1.2-3.8 [facility] Comment on above: Performed By: #### C BC #### [facility] [place] [facility] [address] [place] [address] Dr. Jodi Oglesby Lymphocytes/100 WBC (Bld) 13.0 % Critically low 20.5-60.0 [facility] Comment on above: Performed By: #### C BC #### [facility] [place] [facility] [address] [place] [address] Dr. Jodi Oglesby MANUAL DIFF REQ NO Normal [facility] Comment on above: Performed By: #### C BC #### [facility] [place] [facility] [address] [place] [address] Dr. Jodi Oglesby MCH (RBC) [Entitic mass] 31.5 pg Normal 25.9-34.0 [facility] Comment on above: Performed By: #### C BC #### [facility] [place] [facility] [address] [place] [address] Dr. Jodi Oglesby MCHC (RBC) [Mass/Vol] 32.9 g/dL Normal 29.9-35.2 [facility] Comment on above: Performed By: #### C BC #### [facility] [place] [facility] [address] [place] [address] Dr. Jodi Oglesby MCV (RBC) [Entitic vol] 96.0 fL Critically high 80.0-94.0 [facility] Comment on above: Performed By: #### C BC #### [facility] [place] [facility] [address] [place] [address] Dr. Jodi Oglesby MONO # 1.1 103/ul Critically high 0.3-0.8 [facility] Comment on above: Performed By: #### C BC #### [facility] [place] [facility] [address] [place] [address] Dr. Jodi Oglesby Monocytes/100 WBC (Bld) 10.7 % Normal 1.7-12.0 [facility] Comment on above: Performed By: #### C BC #### [facility] [place] [facility] [address] [place] [address] Dr. Jodi Oglesby NEUT # 7.4 103/ul Critically high 1.4-6.5 [facility] Comment on above: Performed By: #### C BC #### [facility] [place] [facility] [address] [place] [address] Dr. Jodi Oglesby Neutrophils/100 WBC (Bld) 73.1 % Normal 43.0-75.0 [facility] Comment on above: Performed By: #### C BC #### [facility] [place] [facility] [address] [place] [address] Dr. Jodi Oglesby Platelet mean volume (Bld) [Entitic vol] 9.3 fL Critically low 9.5-13.5 [facility] Comment on above: Performed By: #### C BC #### [facility] [place] [facility] [address] [place] [address] Dr. Jodi Oglesby PLT 288 103/ul Normal 150-450 [facility] Comment on above: Performed By: #### C BC #### [facility] [place] [facility] [address] [place] [address] Dr. Joid Oglesby RBC 2.98 106/ul Critically low 4.70-6.10 [facility] Comment on above: Performed By: #### C BC #### [facility] [place] [facility] [address] [place] [address] Dr. Jodi Oglesby WBC 10.1 103/ul Normal 4.0-11.0 [facility] Comment on above: Performed By: #### C BC #### [facility] [place] [facility] [address] [place] [address] ABD/PELVIS WO CONon [...] TAYO CASTILLO Date: 2021-11-11 03:10 Normal [facility] [place] [facility] Covid-19 PCR (CVDTB)on SARS-CoV-2 (COVID-19) RNA JESSIE+probe Ql (Unsp spec) Not detected Normal NOT DETECTED [facility] [place] [facility] Comment on above: Result Comment: When diagnostic [...] for this test is supported by the [employer] Equipment [employer] of Health and Human Service's declaration that [...] used). Performed By: #### C BC #### [facility] [place] [facility] [address] [place], [place] [address] Dr. Jodi Oglesby OCC BLD IMMUNO SCREENon OCCULT BLOOD Negative Normal NEGATIVE [facility] [place] [facility] Comment on above: Performed By: #### D ATA1C #### [facility] [place] [facility] [address] [place], [place] [address] Dr. Jodi Oglesby PROF 14(COMP METB)on 022 Albumin [Mass/Vol] 3.0 g/dL Critically low 3.4-5.0 [facility] Comment on above: Performed By: #### C MP #### [facility] [place] [facility] [address] [place] [address] Dr. Jodi Oglesby Albumin/Globulin [Mass ratio] 0.8 {ratio} Normal [facility] Comment on above: Performed By: #### C MP #### [facility] [place] [facility] [address] [place] [address] [address] Jodi Oglesby ALP [Catalytic activity/Vol] 126 U/L Critically high 46-116 [facility] Comment on above: Performed By: #### C MP #### [facility] [place] [facility] [address] [place] [address] Dr. Jodi Oglesby ALT [Catalytic activity/Vol] 22 U/L Normal 16-63 [facility] Comment on above: Performed By: #### C MP #### [facility] [place] [facility] [address] [place] [address] Dr. Jodi Oglesby Anion gap [Moles/Vol] 16.7 mmol/L Normal [facility] Comment on above: Performed By: #### C MP #### [facility] [place] [facility] [address] [place] [address] Dr. Jodi Oglesby AST [Catalytic activity/Vol] 23 U/L Normal 15-37 [facility] Comment on above: Performed By: #### C MP #### [facility] [place] [facility] [address] [place] [address] Dr. Jodi Oglesby Bilirubin [Mass/Vol] 0.6 mg/dL Normal 0.2-1.0 [facility] Comment on above: Performed By: #### C MP #### [facility] [place] [facility] [address] [place] [address] Dr. Jodi Oglesby Calcium [Mass/Vol] 8.5 mg/dL Normal 8.5-10.1 [facility] Comment on above: Performed By: #### C MP #### [facility] [place] [facility] [address] [place] [address] Dr. Jodi Oglesby Chloride [Moles/Vol] 99 mmol/L Normal 98-107 [facility] Comment on above: Performed By: #### C MP #### [facility] [place] [facility] [address] [place] [address] Dr. Jodi Oglesby CO2 [Moles/Vol] 27.4 mmol/L Normal 21.0-32.0 [facility] Comment on above: Performed By: #### C MP #### [facility] [place] [facility] [address] [place] [address] Dr. Jodi Oglesby Creatinine [Mass/Vol] 0.80 mg/dL Normal 0.70-1.30 [facility] Comment on above: Performed By: #### C MP #### [facility] [place] [facility] [address] [place] [address] Dr. Jodi Oglesby EGFR-AF MONTENEGRIN >60 Normal >=60 [facility] Comment on above: Performed By: #### C MP #### [facility] [place] [facility] [address] [place] [address] Dr. Jodi Oglesby EGFR-NON AF MONTENEGRIN >60 Normal >=60 [facility] Comment on above: Performed By: #### C MP #### [facility] [place] [facility] [address] [place] [address] Dr. Jodi Oglesby Globulin (S) [Mass/Vol] 3.9 g/dL Normal [facility] Comment on above: Performed By: #### C MP #### [facility] [place] [facility] [address] [place] [address] Dr. Jodi Oglesby Glucose [Mass/Vol] 116 mg/dL Critically high 74-106 [facility] Comment on above: Performed By: #### C MP #### [facility] [place] [facility] [address] [place] [address] Dr. Jodi Oglesby Potassium [Moles/Vol] 4.1 mmol/L Normal 3.5-5.1 [facility] Comment on above: Performed By: #### C MP #### [facility] [place] [facility] [address] [place] [address] Dr. Jodi Oglesby Protein [Mass/Vol] 6.9 g/dL Normal 6.4-8.2 [facility] [place] [facility] Comment on above: Performed By: #### C MP #### [facility] [place] [facility] [address] [place] [address] Dr. Jodi Oglesby Sodium [Moles/Vol] 129 mmol/L Critically low 136-145 [facility] Comment on above: Performed By: #### C MP #### [facility] [place] [facility] [address] [place] [address] Dr. Jodi Oglesby Urea nitrogen [Mass/Vol] 15.0 mg/dL Normal 7.0-18.0 [facility] Comment on above: Performed By: #### C MP #### [facility] [place] [facility] [address] [place] [address] Dr. Jodi Oglesby Urea nitrogen/Creatinine [Mass ratio] 18.8 mg/mg Normal [facility] Comment on above: Performed By: #### C MP #### [facility] [place] [facility] [address] [place] [address] Dr. Jodi Oglesby PROTIMEon 11-11-2021 INR Coag (PPP) [Relative time] 1.01 {INR} Normal [facility] Comment on above: Performed By: #### P TT, PT #### [facility] [place] [facility] [address] [place] [address] Dr. Jodi Oglesby INR GUIDELINES SEE BELOW Normal [facility] Comment on above: Result Comment: ESHA RED INR: 2.0 - 3.0 CONDITIONS NOT LISTED BELOW 2.5 - 3.5 FOR PROSTHETIC HEART VALVE REPLACEMENT 2.5 - 3.5 RECURRENT THROMBOSIS Performed By: #### P TT, PT #### [facility] [place] [facility] [address] [place] [address] Dr. Jodi Oglesby PT Coag (PPP) [Time] 10.9 s Normal 9.0-11.6 [facility] Comment on above: Performed By: #### P TT, PT #### [facility] [place] [facility] [address] [place] [address] Dr. Jodi Oglesby PTTon 11-11-2021 aPTT Coag (Bld) [Time] 25.4 s Normal 22.3-36.2 [facility] Comment on above: Performed By: #### P TT, PT #### [facility] [place] [facility] [address] [place] [address] Dr. Jodi Oglesby CBC AUTO DIFFon 10-26-2021 BASO # 0.0 103/ul Normal 0.0-0.1 [facility] Comment on above: Performed By: #### D ATA1C #### [facility] [place] [facility] [address] [address] [address] Jodi Oglesby Basophils/100 WBC (Bld) 0.3 % Normal 0.2-2.0 [facility] Comment on above: Performed By: #### D ATA1C #### [facility] [place] [facility] [address] [address] [address] Jodi Oglesby EO # 0.1 103/ul Normal 0.0-0.7 [facility] [place] [facility] Comment on above: Performed By: #### D ATA1C #### [facility] [place] [facility] [address] [place] [address] Dr. Jodi Oglesby Eosinophils/100 WBC (Bld) 0.5 % Critically low 0.9-7.0 [facility] Comment on above: Performed By: #### D ATA1C #### [facility] [place] [facility] [address] [place] [address] Dr. Jodi Oglesby Erythrocyte distribution width (RBC) [Ratio] 12.4 % Normal 11.0-15.0 [facility] Comment on above: Performed By: #### D ATA1C #### [facility] [place] [facility] [address] [place] [address] Dr. Jodi Oglesby Hematocrit (Bld) [Volume fraction] 39.5 % Critically low 42.0-54.0 [facility] Comment on above: Performed By: #### D ATA1C #### [facility] [place] [facility] [address] [place] [address] Dr. Jodi Oglesby Hemoglobin (Bld) [Mass/Vol] 12.8 g/dL Critically low 14.0-18.0 [facility] [place] [facility] Comment on above: Performed By: #### D ATA1C #### [facility] [place] [facility] [address] [place] [address] Dr. Jodi Oglesby IG # 0.07 10e3/ul Critically high 0.00-0.03 [facility] Comment on above: Performed By: #### D ATA1C #### [facility] [place] [facility] [address] [address] [address] Jodi Oglesby IG % 0.5 % Normal 0.0-0.5 [facility] Comment on above: Performed By: #### D ATA1C #### [facility] [place] [facility] [address] [address] [address] Jodi Oglesby LYMPH # 0.9 103/ul Critically low 1.2-3.8 [facility] Comment on above: Performed By: #### D ATA1C #### [facility] [place] [facility] [address] [address] [address] Jodi Oglesby Lymphocytes/100 WBC (Bld) 6.3 % Critically low 20.5-60.0 [facility] Comment on above: Performed By: #### D ATA1C #### [facility] [place] [facility] [address] [place] [address] Dr. Jodi Oglesby MANUAL DIFF REQ NO Normal [facility] Comment on above: Performed By: #### D ATA1C #### [facility] [place] [facility] [address] [address] [address] Jodi Oglesby MCH (RBC) [Entitic mass] 30.8 pg Normal 25.9-34.0 [facility] Comment on above: Performed By: #### D ATA1C #### [facility] [place] [facility] [address] [place] [address] Dr. Jodi Oglesby MCHC (RBC) [Mass/Vol] 32.4 g/dL Normal 29.9-35.2 [facility] Comment on above: Performed By: #### D ATA1C #### [facility] [place] [facility] [address] [place] [address] Dr. Jodi Oglesby MCV (RBC) [Entitic vol] 95.2 fL Critically high 80.0-94.0 [facility] Comment on above: Performed By: #### D ATA1C #### [facility] [place] [facility] [address] [place] [address] Dr. Jodi Oglesby MONO # 0.9 103/ul Critically high 0.3-0.8 [facility] Comment on above: Performed By: #### D ATA1C #### [facility] [place] [facility] [address] [place], [place] [address] Dr. Jodi Oglesby Monocytes/100 WBC (Bld) 6.2 % Normal 1.7-12.0 [facility] [place] [facility] Comment on above: Performed By: #### D ATA1C #### [facility] [place] [facility] [address] [place] [address] Dr. Jodi Oglesby NEUT # 12.8 103/ul Critically high 1.4-6.5 [facility] Comment on above: Performed By: #### D ATA1C #### [facility] [place] [facility] [address] [place] [address] Dr. Jodi Oglesby Neutrophils/100 WBC (Bld) 86.2 % Critically high 43.0-75.0 [facility] [place] [facility] Comment on above: Performed By: #### D ATA1C #### [facility] [place] [facility] [address] [place] [address] Dr. Jodi Oglesby Platelet mean volume (Bld) [Entitic vol] 9.4 fL Critically low 9.5-13.5 [facility] [place] [facility] Comment on above: Performed By: #### D ATA1C #### [facility] [place] [facility] [address] [place] [address] Dr. Jodi Oglesby PLT 169 103/ul Normal 150-450 [facility] [place] [facility] Comment on above: Performed By: #### D ATA1C #### [facility] [place] [facility] [address] [place] [address] Dr. Jodi Oglesby RBC 4.15 106/ul Critically low 4.70-6.10 [facility] [place] [facility] Comment on above: Performed By: #### D ATA1C #### [facility] [place] [facility] [address] [place] [address] Dr. Jodi Oglesby WBC 14.8 103/ul Critically high 4.0-11.0 [facility] [place] [facility] Comment on above: Performed By: #### D ATA1C #### [facility] [place] [facility] [address] [place], [place] [address] Dr. Jodi Oglesby CT CHEST WO CONon [...] NICOLE SIMMS Date: 2021-10-26 17:38 Normal [facility] [place] [facility] Covid-19 PCR ([facility])on 10-07 SARS-CoV-2 (COVID-19) RNA JESSIE+probe Ql (Unsp spec) Not detected Normal NOT DETECTED [facility] [place] [facility] Comment on above: Result Comment: When diagnostic [...] for this test is supported by the [place] of Health and Human Service's declaration that [...] used). Performed By: #### D ATA1C #### [facility] [place] [facility] [address] [place] [address] Dr. Jodi Oglesby PROF CHEM 8 (BAS METB)on Anion gap [Moles/Vol] 11.7 mmol/L Normal [facility] Comment on above: Performed By: #### C BC #### [facility] [place] [facility] [address] [place] [address] Dr. Jodi Oglesby Calcium [Mass/Vol] 9.2 mg/dL Normal 8.5-10.1 [facility] Comment on above: Performed By: #### C BC #### [facility] [place] [facility] [address] [place] [address] Dr. Jodi Oglesby Chloride [Moles/Vol] 101 mmol/L Normal 98-107 [facility] Comment on above: Performed By: #### C BC #### [facility] [place] [facility] [address] [place] [address] Dr. Jodi Oglesby CO2 [Moles/Vol] 27.6 mmol/L Normal 21.0-32.0 [facility] Comment on above: Performed By: #### C BC #### [facility] [place] [facility] [address] [place] [address] Dr. Jodi Oglesby Creatinine [Mass/Vol] 0.98 mg/dL Normal 0.70-1.30 [facility] Comment on above: Performed By: #### C BC #### [facility] [place] [facility] [address] [place] [address] Dr. Jodi Oglesby EGFR-AF MONTENEGRIN >60 Normal >=60 [facility] [place] [facility] Comment on above: Performed By: #### C BC #### [facility] [place] [facility] [address] [place] [address] Dr. Jodi Oglesby EGFR-NON AF MONTENEGRIN >60 Normal >=60 [facility] Comment on above: Performed By: #### C BC #### [facility] [place] [facility] [address] [place] [address] Dr. Jodi Oglesby Glucose [Mass/Vol] 119 mg/dL Critically high 74-106 [facility] Comment on above: Performed By: #### C BC #### [facility] [place] [facility] [address] [address] [address] Jodi Oglesby Potassium [Moles/Vol] 4.3 mmol/L Normal 3.5-5.1 [facility] Comment on above: Performed By: #### C BC #### [facility] [place] [facility] [address] [address] [address] Jodi Oglesby Sodium [Moles/Vol] 136 mmol/L Normal 136-145 [facility] Comment on above: Performed By: #### C BC #### [facility] [place] [facility] [address] [place] [address] Dr. Jodi Oglesby Urea nitrogen [Mass/Vol] 15.0 mg/dL Normal 7.0-18.0 [facility] Comment on above: Performed By: #### C BC #### [facility] [place] [facility] [address] [place] [address] Dr. Jodi Oglesby Urea nitrogen/Creatinine [Mass ratio] 15.3 mg/mg Normal [facility] Comment on above: Performed By: #### C BC #### [facility] [place] [facility] [address] [place] [address] Dr. Jodi Oglesby XR CLAVICLE RTon 10-26-2021 [...] by: ABY ALDANA Date: 2021-10-26 15:37 Normal [facility] XR ELBOW RT MIN 3 VIEWSon XR [...] DEL CHAKRABORTY Date: 2021-10-26 17:23 Normal [facility] [place] [facility] XR HIP RT 2 3V W PELVISon [...] by: CHARLES ALEJANDRA Date: 2021-10-26 15:40 Normal [facility] CARDIAC STRESS/REST INJE CTIONon 10-21-[address] [facility] CARDIAC STRESS/REST INJECTION Patient Name: CHICO BAKER STUDY: MYOCARDIAL PERFUSION STRESS TEST WITH LEXISCAN Performing facility: [facility], [address] [place] [address], [address], [address] Provider: Adilene Harrington MD, [facility] PCP: Dr. Jori Dunham Supervising provider: Adilene Harrington MD, [facility] INDICATION: AAA Pre-operative risk assessment for AAA scheduled at [facility] on [place]. HISTORY: Gender: M; Age: 81 y/o ; Height: 0 cm; Weight: 0 kg. HTN; Carotid disease PAD AAA Denies smoking. COMPARISON: Previous nuclear testing completed [id number] at [facility]. Previous echo testing completed on 2020 at [facility]. ACCESSION NUMBER(S): [id number]; [id number]; [id number] ORDERING CLINICIAN: JUDAH HARRINGTON TECHNIQUE: ONE DAY protocol. Stress injection: [...] Electronically signed by: ALL HUDSON MD Normal [facility] No Panel Informationon 10-21 Normal -[facility] [address] [place] Work Phone: COVID-19 Positive/NegativeOr dered By: Raul Quan on 10-13-2021 SARS-CoV-2 (COVID-19) N gene JESSIE+probe Ql (Resp) Negative Negative [facility] Comment on above: Testing for SARS-CoV -2 by RT-PCR This test was developed and its performance characteristics determined by [employer] ([employer]) and validated at the [facility]. This test has not been FDA cleared [...] 10-06-2021 Basophils (Bld) [#/Vol] 0.0 10*3/uL 0.0-0.2 [facility] Basophils/100 WBC Auto (Bld) Ordered By: Raul Quan on 10-06-2021 Basophils/100 WBC (Bld) 0.7 % . [facility] Blood hemoglobin measurement (mass/volume)Ordered By: Raul Quan on 10-06-2021 Hemoglobin (Bld) [Mass/Vol] 13.1 g/dL 13.0-17.0 [facility] Blood leukocytes automated c ount (number/volume)Ordered By: Raul Quan on 10-06-2021 WBC (Bld) [#/Vol] 5.2 10*3/uL 4.5-11.0 [facility] Creatinine and Glomerular fi ltration rate.predicted panel (S/P/Bld)Ordered By: Raul Quan on 10-06-2021 Creatinine [Mass/Vol] 0.98 mg/dL 0.64-1.27 [facility] Eosinophils Auto (Bld) [#/Vo l]Ordered By: Raul Quan on 10-06-2021 Eosinophils (Bld) [#/Vol] 0.1 10*3/uL 0.0-0.45 [facility] Eosinophils/100 WBC Auto (Bl d)Ordered By: Raul Quan on 08-01-2022 Eosinophils/100 WBC (Bld) 1.3 % . [facility] Erythrocyte distribution wid th Auto (RBC) [Ratio]Ordered By: Raul Quan on 10-06-2021 Erythrocyte distribution width (RBC) [Ratio] 13.3 % 12.0-14.8 [facility] Estimated glomerular filtrat ion rate (GFR) non- AmericanOrdered By: Raul Quan on 10-06-2021 GFR/1.73 sq M.predicted among non-blacks MDRD (S/P/Bld) [Vol rate/Area] > 60 mL/Min [facility] Hematocrit Auto (Bld) [Volum e fraction]Ordered By: Raul Quan on 10-06-2021 Hematocrit (Bld) [Volume fraction] 40.4 % 38.8-50.0 [facility] Laboratory - Hematology and Cell countsOrdered By: Raul Quan on 10-06-2021 Nucleated RBC/100 WBC (Bld) [Ratio] 0.0 % 0-0.5 [facility] Lymphocytes Auto (Bld) [#/Vo l]Ordered By: Raul Quan on 10-06-2021 Lymphocytes (Bld) [#/Vol] 1.0 10*3/uL 1.00-4.8 [facility] Lymphocytes/100 WBC Auto (Bl d)Ordered By: Raul Quan on 10-06-2021 Lymphocytes/100 WBC (Bld) 18.4 % . [facility] MCH Auto (RBC) [Entitic mass ]Ordered By: Raul Quan on 10-06-2021 MCH (RBC) [Entitic mass] 30.9 pg 27.5-35.2 [facility] MCHC Auto (RBC) [Mass/Vol]Or dered By: Raul Quan on 10-06-2021 MCHC (RBC) [Mass/Vol] 32.5 g/dL 32.5-35.6 [facility] MCV Auto (RBC) [Entitic vol] Ordered By: Raul Quan on 10-06-2021 MCV (RBC) [Entitic vol] 95.2 fL 83.5-101 [facility] Monocytes Auto (Bld) [#/Vol] Ordered By: Raul Quan on 10-06-2021 Monocytes (Bld) [#/Vol] 0.6 10*3/uL 0.0-0.8 [facility] [facility] Monocytes/100 WBC Auto (Bld) Ordered By: Raul Quan on 10-06-2021 Monocytes/100 WBC (Bld) 12.0 % . [facility] Neutrophils Auto (Bld) [#/Vo l]Ordered By: Raul Quan on 10-06-2021 Neutrophils (Bld) [#/Vol] 3.5 10*3/uL 1.8-7.7 [facility] Neutrophils/100 WBC Auto (Bl d)Ordered By: Raul Quan on 10-06-2021 Neutrophils/100 WBC (Bld) 67.6 % . [facility] No Panel InformationOrdered By: Raul Quan on 10-06-2021 Estimated GFR () > 60 mL/Min [facility] Comment on above: GFR estimated refere nce range: According to KDOQI guidelines, <60 ml/min/1.73m2 is sufficient to diagnose a patient with chronic kidney disease. Pharmacy Creatinine Clearance (Chem N/A [facility] Platelet mean volume Auto (B ld) [Entitic vol]Ordered By: Raul Quan on 10-06-2021 Platelet mean volume (Bld) [Entitic vol] 8.1 fL 6.6-10.1 [facility] Platelets Auto (Bld) [#/Vol] Ordered By: Raul Quan on 10-06-2021 Platelets (Bld) [#/Vol] 185 10*3/uL 150-450 [facility] RBC Auto (Bld) [#/Vol]Ordere d By: Raul Quan on 10-06-2021 RBC (Bld) [#/Vol] 4.25 10*6/uL 3.90-5.60 [facility] Serum or plasma calcium richy urement (mass/volume)Ordered By: Raul Quan on 10-06-2021 Calcium [Mass/Vol] 9.0 mg/dL 8.2-10.2 [facility] Serum or plasma chloride young surement (moles/volume)Ordered By: Raul Quan on 10-06-2021 Chloride [Moles/Vol] 101 mmol/L 95-114 [facility] Serum or plasma glucose richy urement (mass/volume)Ordered By: Raul Quan on 10-06-2021 Glucose [Mass/Vol] 187 mg/dL 70-100 [facility] Comment on above: ADA recommended refe rence range Random Glucose Reference Range is dependent on time and content of last meal. Glucose of more than 200 mg/dL in a nonstressed, ambulatory subject supports the diagnosis of Diabetes Mellitus. Serum or plasma potassium me asurement (moles/volume)Ordered By: Raul Quan on 10-06-2021 Potassium [Moles/Vol] 4.0 mmol/L 3.5-5.1 [facility] Serum or plasma sodium measu rement (moles/volume)Ordered By: Raul Quan on 10-06-2021 Sodium [Moles/Vol] 135 mmol/L 136-146 [facility] Serum or plasma total carbon dioxide measurement (moles/volume)Ordered By: Raul Quan on 10-06-2021 CO2 [Moles/Vol] 25.1 mmol/L 22.0-30.0 [facility] Serum or plasma urea nitroge n measurement (mass/volume)Ordered By: Raul Quan on 10-06-2021 Urea nitrogen [Mass/Vol] 13 mg/dL 9-23 [facility] CBC AUTO DIFFon 09-22-2021 BASO # 0.0 103/ul Normal 0.0-0.1 [facility] Comment on above: Performed By: #### C BC #### [facility] [place] [facility] [address] [address] [address] Jodi Oglesby Basophils/100 WBC (Bld) 0.3 % Normal 0.2-2.0 [facility] Comment on above: Performed By: #### C BC #### [facility] [place] [facility] [address] [place], [place] [address] Dr. Jodi Oglesby EO # 0.1 103/ul Normal 0.0-0.7 [facility] Comment on above: Performed By: #### C BC #### [facility] [place] [facility] [address] [place] [address] Dr. Jodi Oglesby Eosinophils/100 WBC (Bld) 0.8 % Critically low 0.9-7.0 [facility] Comment on above: Performed By: #### C BC #### [facility] [place] [facility] [address] [place] [address] Dr. Jodi Oglesby Erythrocyte distribution width (RBC) [Ratio] 12.5 % Normal 11.0-15.0 [facility] Comment on above: Performed By: #### C BC #### [facility] [place] [facility] [address] [place] [address] Dr. Jodi Oglesby Hematocrit (Bld) [Volume fraction] 43.6 % Normal 42.0-54.0 [facility] Comment on above: Performed By: #### C BC #### [facility] [place] [facility] [address] [place] [address] Dr. Jodi Oglesby Hemoglobin (Bld) [Mass/Vol] 14.1 g/dL Normal 14.0-18.0 [facility] Comment on above: Performed By: #### C BC #### [facility] [place] [facility] [address] [place] [address] Dr. Jodi Oglesby IG # 0.03 10e3/ul Normal 0.00-0.03 [facility] Comment on above: Performed By: #### C BC #### [facility] [place] [facility] [address] [place] [address] Dr. Jodi Oglesby IG % 0.3 % Normal 0.0-0.5 [facility] [place] [facility] Comment on above: Performed By: #### C BC #### [facility] [place] [facility] [address] [place] [address] Dr. Jodi Oglesby LYMPH # 1.5 103/ul Normal 1.2-3.8 [facility] Comment on above: Performed By: #### C BC #### [facility] [place] [facility] [address] [place] [address] Dr. Jodi Oglesby Lymphocytes/100 WBC (Bld) 17.2 % Critically low 20.5-60.0 [facility] Comment on above: Performed By: #### C BC #### [facility] [place] [facility] [address] [place] [address] Dr. Jodi Oglesby MANUAL DIFF REQ NO Normal [facility] Comment on above: Performed By: #### C BC #### [facility] [place] [facility] [address] [place] [address] Dr. Jodi Oglesby MCH (RBC) [Entitic mass] 31.1 pg Normal 25.9-34.0 [facility] Comment on above: Performed By: #### C BC #### [facility] [place] [facility] [address] [place] [address] Dr. Jodi Oglesby MCHC (RBC) [Mass/Vol] 32.3 g/dL Normal 29.9-35.2 [facility] Comment on above: Performed By: #### C BC #### [facility] [place] [facility] [address] [place] [address] Dr. Jodi Oglesby MCV (RBC) [Entitic vol] 96.0 fL Critically high 80.0-94.0 [facility] Comment on above: Performed By: #### C BC #### [facility] [place] [facility] [address] [place] [address] Dr. Jodi Oglesby MONO # 1.0 103/ul Critically high 0.3-0.8 [facility] Comment on above: Performed By: #### C BC #### [facility] [place] [facility] [address] [place] [address] Dr. Jodi Oglesby Monocytes/100 WBC (Bld) 10.8 % Normal 1.7-12.0 [facility] Comment on above: Performed By: #### C BC #### [facility] [place] [facility] [address] [place] [address] Dr. Jodi Oglesby NEUT # 6.2 103/ul Normal 1.4-6.5 [facility] Comment on above: Performed By: #### C BC #### [facility] [place] [facility] [address] [place] [address] Dr. Jodi Oglesby Neutrophils/100 WBC (Bld) 70.6 % Normal 43.0-75.0 [facility] Comment on above: Performed By: #### C BC #### [facility] [place] [facility] [address] [address] [address] Jodi Oglesby Platelet mean volume (Bld) [Entitic vol] 9.6 fL Normal 9.5-13.5 [facility] Comment on above: Performed By: #### C BC #### [facility] [place] [facility] [address] [address] [address] Jodi Oglesby PLT 206 103/ul Normal 150-450 [facility] [place] [facility] Comment on above: Performed By: #### C BC #### [facility] [place] [facility] [address] [place] [address] Dr. Jodi Oglesby RBC 4.54 106/ul Critically low 4.70-6.10 [facility] [place] [facility] Comment on above: Performed By: #### C BC #### [facility] [place] [facility] [address] [place] [address] Dr. Jodi Oglesby WBC 8.8 103/ul Normal 4.0-11.0 [facility] [place] [facility] Comment on above: Performed By: #### C BC #### [facility] [place] [facility] [address] [place] [address] Dr. Jodi Oglesby PROF CHEM 8 (BAS METB)on Anion gap [Moles/Vol] 9.5 mmol/L Normal [facility] Comment on above: Performed By: #### B MP #### [facility] [place] [facility] [address] [place] [address] Dr. Jodi Oglesby Calcium [Mass/Vol] 9.4 mg/dL Normal 8.5-10.1 [facility] [place] [facility] Comment on above: Performed By: #### B MP #### [facility] [place] [facility] [address] [place] [address] Dr. Jodi Oglesby Chloride [Moles/Vol] 100 mmol/L Normal 98-107 [facility] [place] [facility] Comment on above: Performed By: #### B MP #### [facility] [place] [facility] [address] [place] [address] Dr. Jodi Oglesby CO2 [Moles/Vol] 33.2 mmol/L Critically high 21.0-32.0 [facility] [place] [facility] Comment on above: Performed By: #### B MP #### [facility] [place] [facility] [address] [address] [address] Jodi Oglesby Creatinine [Mass/Vol] 0.99 mg/dL Normal 0.70-1.30 [facility] Comment on above: Performed By: #### B MP #### [facility] [place] [facility] [address] [address] [address] Jodi Oglesby EGFR-AF MONTENEGRIN >60 Normal >=60 [facility] Comment on above: Performed By: #### B MP #### [facility] [place] [facility] [address] [address] [address] Jodi Oglesby EGFR-NON AF MONTENEGRIN >60 Normal >=60 [facility] Comment on above: Performed By: #### B MP #### [facility] [place] [facility] [address] [address] [address] Jodi Oglesby Glucose [Mass/Vol] 109 mg/dL Critically high 74-106 [facility] Comment on above: Performed By: #### B MP #### [facility] [place] [facility] [address] [place] [address] Dr. Jodi Oglesby Potassium [Moles/Vol] 4.7 mmol/L Normal 3.5-5.1 [facility] Comment on above: Performed By: #### B MP #### [facility] [place] [facility] [address] [place] [address] Dr. Jodi Oglesby Sodium [Moles/Vol] 138 mmol/L Normal 136-145 [facility] [place] [facility] Comment on above: Performed By: #### B MP #### [facility] [place] [facility] [address] [address] [address] Jodi Oglesby Urea nitrogen [Mass/Vol] 17.0 mg/dL Normal 7.0-18.0 [facility] Comment on above: Performed By: #### B MP #### [facility] [place] [facility] [address] [place] [address] Dr. Jodi Oglesby Urea nitrogen/Creatinine [Mass ratio] 17.2 mg/mg Normal [facility] Comment on above: Performed By: #### B MP #### [facility] [place] [facility] [address] [address] [address] Jodi Oglesby Creatinine (Bld) [Mass/Vol]O rdered By: Tamar Perea on 09-18-2021 Creatinine [Mass/Vol] 0.8 mg/dL 0.6-1.3 [facility] Comment on above: ER/ESD physician is notified/shown all ISTAT results. Critical values may be confirmed by laboratory testing if deemed necessary by ER attending doctor. No Panel InformationOrdered By: Tamar Perea on 09-18-2021 POC Estimated GFR > 60 [facility] Comment on above: GFR estimated refere nce range: According to KDOQI guidelines, <60 ml/min/1.73m2 is sufficient to diagnose a patient with chronic kidney disease. POC Estimated GFR Non- Amer > 60 [facility] CBC AUTO DIFFon 08-12-2021 BASO # 0.0 103/ul Normal 0.0-0.1 [facility] Comment on above: Performed By: #### C BC #### [facility] [place] [facility] [address] [place] [address] Dr. Jodi Oglesby Basophils/100 WBC (Bld) 0.3 % Normal 0.2-2.0 [facility] Comment on above: Performed By: #### C BC #### [facility] [place] [facility] [address] [place] [address] Dr. Jodi Oglesby EO # 0.1 103/ul Normal 0.0-0.7 [facility] Comment on above: Performed By: #### C BC #### [facility] [place] [facility] [address] [address] [address] Jodi Oglesby Eosinophils/100 WBC (Bld) 1.8 % Normal 0.9-7.0 [facility] Comment on above: Performed By: #### C BC #### [facility] [place] [facility] [address] [place] [address] Dr. Jodi Oglesby Erythrocyte distribution width (RBC) [Ratio] 12.6 % Normal 11.0-15.0 [facility] Comment on above: Performed By: #### C BC #### [facility] [place] [facility] [address] [place] [address] Dr. Jodi Oglesby Hematocrit (Bld) [Volume fraction] 40.9 % Critically low 42.0-54.0 [facility] Comment on above: Performed By: #### C BC #### [facility] [place] [facility] [address] [place] [address] Dr. Jodi Oglesby Hemoglobin (Bld) [Mass/Vol] 13.4 g/dL Critically low 14.0-18.0 [facility] Comment on above: Performed By: #### C BC #### [facility] [place] [facility] [address] [place] [address] Dr. Jodi Oglesby IG # 0.03 10e3/ul Normal 0.00-0.03 [facility] Comment on above: Performed By: #### C BC #### [facility] [place] [facility] [address] [place] [address] Dr. Jodi Oglesby IG % 0.4 % Normal 0.0-0.5 [facility] Comment on above: Performed By: #### C BC #### [facility] [place] [facility] [address] [place] [address] Dr. Jodi Oglesby LYMPH # 1.4 103/ul Normal 1.2-3.8 [facility] Comment on above: Performed By: #### C BC #### [facility] [place] [facility] [address] [place] [address] Dr. Jodi Oglesby Lymphocytes/100 WBC (Bld) 18.6 % Critically low 20.5-60.0 [facility] Comment on above: Performed By: #### C BC #### [facility] [place] [facility] [address] [place] [address] Dr. Jodi Oglesby MCH (RBC) [Entitic mass] 31.5 pg Normal 25.9-34.0 [facility] [place] [facility] Comment on above: Performed By: #### C BC #### [facility] [place] [facility] [address] [place] [address] Dr. Jodi Oglesby MCHC (RBC) [Mass/Vol] 32.8 g/dL Normal 29.9-35.2 [facility] Comment on above: Performed By: #### C BC #### [facility] [place] [facility] [address] [place] [address] Dr. Jodi Oglesby MCV (RBC) [Entitic vol] 96.0 fL Critically high 80.0-94.0 [facility] Comment on above: Performed By: #### C BC #### [facility] [place] [facility] [address] [place] [address] Dr. Jodi Oglesby MONO # 0.7 103/ul Normal 0.3-0.8 [facility] [place] [facility] Comment on above: Performed By: #### C BC #### [facility] [place] [facility] [address] [place] [address] Dr. Jodi Oglesby Monocytes/100 WBC (Bld) 9.7 % Normal 1.7-12.0 [facility] Comment on above: Performed By: #### C BC #### [facility] [place] [facility] [address] [place] [address] Dr. Jodi Oglesby NEUT # 5.1 103/ul Normal 1.4-6.5 [facility] Comment on above: Performed By: #### C BC #### [facility] [place] [facility] [address] [place] [address] Dr. Jodi Oglesby Neutrophils/100 WBC (Bld) 69.2 % Normal 43.0-75.0 [facility] [place] [facility] Comment on above: Performed By: #### C BC #### [facility] [place] [facility] [address] [place] [address] Dr. Jodi Oglesby Platelet mean volume (Bld) [Entitic vol] 9.8 fL Normal 9.5-13.5 [facility] [place] [facility] Comment on above: Performed By: #### C BC #### [facility] [place] [facility] [address] [place] [address] Dr. Jodi Oglesby PLT 195 103/ul Normal 150-450 [facility] [place] [facility] Comment on above: Performed By: #### C BC #### [facility] [place] [facility] [address] [place] [address] Dr. Jodi Oglesby RBC 4.26 106/ul Critically low 4.70-6.10 [facility] [place] [facility] Comment on above: Performed By: #### C BC #### [facility] [place] [facility] [address] [place] [address] Dr. Jodi Oglesby WBC 7.4 103/ul Normal 4.0-11.0 [facility] Comment on above: Performed By: #### C BC #### [facility] [place] [facility] [address] [place] [address] Dr. Jodi Oglesby ASHLEY - TSHon 08-12-2021 TSH 1.879 uIU/mL Normal 0.358-3.740 [facility] Comment on above: Performed By: #### D ATTSH, DATBMP #### [facility] [place] [facility] [address] [place] [address] Dr. Jodi Oglesby TSH RANGE SEE BELOW Normal [facility] Comment on above: Result Comment: <0.3 4 UIU/ml HYPERTHYROID 0.34-5.60 UIU/ml EUTHYROID >5.60 UIU/ml HYPOTHYROID Performed By: #### D ATTKENDELL, DATBMP #### [facility] [place] [facility] [address] [place] [address] Dr. Jodi Oglesby ASHLEY- BMP WITH LIPIDon 2021 Anion gap [Moles/Vol] 11.4 mmol/L Normal [facility] Comment on above: Performed By: #### D ATTSH, DATBMP #### [facility] [place] [facility] [address] [place] [address] Dr. Jodi Oglesby Calcium [Mass/Vol] 8.7 mg/dL Normal 8.5-10.1 [facility] Comment on above: Performed By: #### D ATTSH, DATBMP #### [facility] [place] [facility] [address] [place] [address] Dr. Jodi Oglesby Chloride [Moles/Vol] 105 mmol/L Normal 98-107 [facility] Comment on above: Performed By: #### D ATTSH, DATBMP #### [facility] [place] [facility] [address] [place] [address] Dr. Jodi Oglesby Cholesterol [Mass/Vol] 113 mg/dL Normal <=200 [facility] Comment on above: Performed By: #### D ATTSH, DATBMP #### [facility] [place] [facility] [address] [place] [address] Dr. Jodi Oglesby Cholesterol in HDL [Mass/Vol] 47 mg/dL Normal 40-60 [facility] Comment on above: Performed By: #### D ATTSH, DATBMP #### [facility] [place] [facility] [address] [place] [address] Dr. Jodi Oglesby Cholesterol in LDL [Mass/Vol] 58.0 mg/dL Normal [facility] Comment on above: Performed By: #### D ATTSH, DATBMP #### [facility] [place] [facility] [address] [place] [address] Dr. Jodi Oglesby CO2 [Moles/Vol] 29.0 mmol/L Normal 21.0-32.0 [facility] Comment on above: Performed By: #### D ATTKENDELL, DATBMP #### [facility] [place] [facility] [address] [place] [address] Dr. Jodi Oglesby Creatinine [Mass/Vol] 0.99 mg/dL Normal 0.70-1.30 [facility] Comment on above: Performed By: #### D ATTSH, DATBMP #### [facility] [place] [facility] [address] [place] [address] Dr. Jodi Oglesby EGFR-AF MONTENEGRIN >60 Normal >=60 [facility] Comment on above: Performed By: #### D ATTSH, DATBMP #### [facility] [place] [facility] [address] [place] [address] Dr. Jodi Oglesby EGFR-NON AF MONTENEGRIN >60 Normal >=60 [facility] Comment on above: Performed By: #### D ATTSH, DATBMP #### [facility] [place] [facility] [address] [place] [address] Dr. Jodi Oglesby Glucose [Mass/Vol] 116 mg/dL Critically high 74-106 [facility] Comment on above: Performed By: #### D ATTSH, DATBMP #### [facility] [place] [facility] [address] [place] [address] Dr. Jodi Oglesby HDL NORMAL > or = 60 mg/dl - LO W CARDIOVASCULAR RISK <40 mg/dl - HIGH CARDIOVASCULAR RISK Normal [facility] Comment on above: Performed By: #### D ATTSH, DATBMP #### [facility] [place] [facility] [address] [place] [address] Dr. Jodi Oglesby LDL CALC NORMAL SEE BELOW Normal [facility] Comment on above: Result Comment: <100 mg/dl OPTIMAL 100 - 129 mg/dl NEAR OR ABOVE OPTIMAL 130 - 159 mg/dl BORDERLINE HIGH 160 - 189 mg/dl HIGH >190 mg/dl VERY HIGH Performed By: #### D ATTSH, DATBMP #### [facility] [place] [facility] [address] [address] [address] Jodi Oglesby Potassium [Moles/Vol] 4.4 mmol/L Normal 3.5-5.1 [facility] Comment on above: Performed By: #### D ATTKENDELL, DATBMP #### [facility] [place] [facility] [address] [address] [address] Jodi Oglesby Sodium [Moles/Vol] 141 mmol/L Normal 136-145 [facility] Comment on above: Performed By: #### D ATTKENDELL, DATBMP #### [facility] [place] [facility] [address] [place] [address] Dr. Jodi Oglesby Triglyceride [Mass/Vol] 40 mg/dL Normal <=150 [facility] Comment on above: Performed By: #### D ATTKENDELL, DATBMP #### [facility] [place] [facility] [address] [address] [address] Jodi Oglesby Urea nitrogen [Mass/Vol] 16.0 mg/dL Normal 7.0-18.0 [facility] Comment on above: Performed By: #### D ATTKENDELL, DATBMP #### [facility] [place] [facility] [address] [address] [address] Jodi Oglesby Urea nitrogen/Creatinine [Mass ratio] 16.2 mg/mg Normal [facility] Comment on above: Performed By: #### D ATTKENDELL, DATBMP #### [facility] [place] [facility] [address] [place] [address] Dr. Jodi Oglesby VLDL CALC 8.0 mg/dL Normal [facility] Comment on above: Performed By: #### D ATTSH, DATBMP #### [facility] [place] [facility] [address] [place] [address] Dr. Jodi Oglesby GLYCOHEMOGLOBIN A1Con 06-07- 2022 ADA RECOMMENDATION SEE BELOW Normal [facility] Comment on above: Result Comment: ADA RECOMMENDED LIMIT 4.0 - 6.0 ADA THERAPEUTIC TARGET < 7.0 ACTION SUGGESTED > 7.0 Performed By: #### D ATA1C #### [facility] [place] [facility] [address] [address] [address] Jodi Oglesby Glucose [Mass/Vol] 131 mg/dL Normal [facility] Comment on above: Performed By: #### D ATA1C #### [facility] [place] [facility] [address] [address] [address] Jodi Oglesby HbA1c (Bld) [Mass fraction] 6.2 % Normal 4.5-6.2 [facility] Comment on above: Performed By: #### D ATA1C #### [facility] [place] [facility] [address] [address] [address] Jodi Oglesby CNOVon 12-11-2020 CNOV Office Visit ([facility] ) -- CHICO BAKER ([id number]) 1940 M Date Time Provider Department 12/11/20 10:45 AM POWER CATHERINE During your visit today, we recorded the following information about you: Pulse Blood pressure Weight Height 60/minute 122/78 67.6 kg 1.702 m Power Catherine MD 12/11/2020 11:17 AM Signed [facility] OUTPATIENT VISIT DATE December 11, 2020 OUTPATIENT VISIT TYPE EST PRIMARY CARE PHYSICIAN: Shailesh Dunham (Jere) [address] [place] [address] REFERRING PHYSICIAN Power Catherine [address] [facility] [id number] CHIEF COMPLAINT: Patient presents with: Established Patient [...] Power Catherine MD Referring Provider: POWER CATHERINE [[id number]] Allergies As of Date: 12/11/2020 Noted Allergy Reaction SHALINI INHIBITORS 05/09/2015 16 - Unknown GADOLINIUM-CONTAINING CONTRAST ME*05/09/2015 16 - Unknown TETANUS VACCINES AND TOXOID 05/16/2015 16 - Unknown Date Reviewed: 12/11/2020 Reviewed by: Harika Menjivar - Fully Assessed Reason for Visit: Established Patient [175] Follow Up [171] Primary Visit Diagnosis: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 - nitroglycerin sublingual (NITROQUICK) 0.3 mg SL tablet (more content not included)... Normal [facility] Jessa 10-30-2020 JOANNAN Telephone ([facility]) -- CHICO BAKER ([id number]) 1940 M Date Time Provider Department 10/30/20 [...] [I71.4] Order(s):US ABD AORTA [facility]PLE[facility] [[id number]] Order #: [id number] FUTURE Prescriptions as of 11/04/2020 - aspirin, [...] Status:Closed by SHERI MOLINA on 11/04/20 Normal [facility] Vital Signs Date Time Vital Sign Value Performing Clinician Facility 01-13-2023 08:49-0500 Blood Pressure Location Ivelisse Hassan [facility] [place] 01-13-2023 08:49-0500 Diastolic blood pressure 74 mm[Hg] Ivelisse Hassan [facility] [place] 01-13-2023 08:49-0500 Heart rate 68 /min Ivelisse Lue [facility] [place] 01-13-2023 08:49-0500 Respiratory rate 16 /min Ivelisse Lue [facility] [place] 01-13-2023 08:49-0500 Systolic blood pressure 156 mm[Hg] Ivelisse Lue [facility] 11-10-2022 10:30-0400 Body height 170.18 cm Raul Quan Other [facility] Other 11-10-2022 10:30-0400 Body mass index (BMI) [Ratio] 20.99 kg/m2 Raul Quan Other [facility] Other 11-10-2022 10:30-0400 Body temperature 97.8 [degF] Raul Quan Other [facility] Other 11-10-2022 10:30-0400 Body weight 60.78 kg Raul Quan Other [facility] Other 11-10-2022 10:30-0400 Diastolic blood pressure 64 mm[Hg] Raul Quan Other [facility] Other 11-10-2022 10:30-0400 SaO2% (BldA) [Mass fraction] 98 % Raul Quan Other [facility] Other 11-10-2022 10:30-0400 Systolic blood pressure 110 mm[Hg] Raul Quan Other [employer] Other 10-07-2022 08:49-0400 Blood Pressure Location Ivelisse Lue [facility] [place] 10-07-2022 08:49-0400 Diastolic blood pressure 74 mm[Hg] Ivelisse Lue [facility] [place] 10-07-2022 08:49-0400 Heart rate 75 /min Ivelisse Lue [facility] 10-07-2022 08:49-0400 Systolic blood pressure 139 mm[Hg] Ivelisse Lue [facility] 08-04-2022 11:15-0400 Body height 170.18 cm Raul Quan Other [employer] [facility] [employer] Other 08-04-2022 11:15-0400 Body mass index (BMI) [Ratio] 21.77 kg/m2 Raul Quan Other [employer] Other 08-04-2022 11:15-0400 Body temperature 97.8 [degF] Raul Quan Other [employer] Other 08-04-2022 11:15-0400 Body weight 63.05 kg Raul Quan Other [employer] Other 08-04-2022 11:15-0400 Diastolic blood pressure 68 mm[Hg] Raul Quan Other [employer] Other 08-04-2022 11:15-0400 SaO2% (BldA) [Mass fraction] 97 % Raul Quan Other [facility] [employer] Other 08-04-2022 11:15-0400 Systolic blood pressure 108 mm[Hg] Raul Quan Other [facility] [employer] Other 07-09-2022 08:00-0400 Body temperature 98.6 [degF] DO Shailesh Ball Work Phone: [facility] 07-09-2022 08:00-0400 Diastolic blood pressure 72 mm[Hg] DO Shailesh Ball Work Phone: [facility] 07-09-2022 08:00-0400 Heart rate 69 /min DO Shailesh Ball Work Phone: [facility] 07-09-2022 08:00-0400 Respiratory rate 16 /min DO Shailesh Ball Work Phone: [facility] 07-09-2022 08:00-0400 SaO2% (BldA) [Mass fraction] 97 % DO Shailesh Ball Work Phone: [facility] 07-09-2022 08:00-0400 Systolic blood pressure 154 mm[Hg] DO Shailesh Ball Work Phone: [facility] 07-09-2022 06:00-0400 Body weight 65.8 kg DO Shailesh Ball Work Phone: [facility] 07-08-2022 10:52-0400 Inhaled oxygen flow rate 8 L/min DO Shailesh Ball Work Phone: [facility] 07-08-2022 08:34-0400 Body height 167.64 cm DO Shailesh Ball Work Phone: [facility] 07-08-2022 08:34-0400 Body mass index (BMI) [Ratio] 22.7 kg/m2 DO Shailesh Ball Work Phone: [facility] 06-24-2022 09:27-0400 Blood Pressure Location Ivelisse aHssan [facility] [place] 06-24-2022 09:27-0400 Diastolic blood pressure 75 mm[Hg] Ivelisse Lue [facility] [place] 06-24-2022 09:27-0400 Heart rate 66 /min Ivelisse Lue [facility] [place] 06-24-2022 09:27-0400 Respiratory rate 16 /min Ivelisse Lue [facility] [place] 06-24-2022 09:27-0400 Systolic blood pressure 120 mm[Hg] Ivelisse Lue [facility] 05-21-2022 09:30-0400 Body height 170.18 cm Shailesh Ball Other [facility] [employer] Other 05-21-2022 09:30-0400 Body mass index (BMI) [Ratio] 21.8 kg/m2 Shailesh Ball Other [facility] [employer] Other 05-21-2022 09:30-0400 Body weight 63.14 kg Shailesh Ball Other [facility] [employer] Other 05-21-2022 09:30-0400 Diastolic blood pressure 73 mm[Hg] Shailesh Ball Other [facility] [employer] Other 05-21-2022 09:30-0400 Respiratory rate 12 /min Shailesh Ball Other [facility] [employer] Other 05-21-2022 09:30-0400 Systolic blood pressure 121 mm[Hg] Shailesh Ball Other [facility] [employer] Other 05-19-2022 11:00-0400 Body height 170.18 cm Tamar Perea Other [employer] Other 05-19-2022 11:00-0400 Body mass index (BMI) [Ratio] 22.02 kg/m2 Tamar Perea Other [employer] Other 05-19-2022 11:00-0400 Body temperature 97.5 [degF] Tamar Perea Other [employer] Other 05-19-2022 11:00-0400 Body weight 63.78 kg Tamar Perea Other [employer] Other 05-19-2022 11:00-0400 Diastolic blood pressure 76 mm[Hg] Tamar Perea Other [employer] Other 05-19-2022 11:00-0400 SaO2% (BldA) [Mass fraction] 98 % Tamar Perea Other [employer] Other 05-19-2022 11:00-0400 Systolic blood pressure 148 mm[Hg] Tamar Perea Other [employer] Other 04-15-2022 08:57-0500 Blood Pressure Location Ivelisse Lue [facility] [place] 04-15-2022 08:57-0500 Diastolic blood pressure 78 mm[Hg] Ivelisse Lue [facility] [place] 04-15-2022 08:57-0500 Heart rate 68 /min Ivelisse Lue [facility] [place] 04-15-2022 08:57-0500 Respiratory rate 16 /min Ivelisse Lue [facility] [place] 04-15-2022 08:57-0500 Systolic blood pressure 122 mm[Hg] Ivelisse Hassan [facility] [place] 03-10-2022 11:30-0500 Body height 170.18 cm Raul Quan Other [employer] Other 03-10-2022 11:30-0500 Body mass index (BMI) [Ratio] 21.2 kg/m2 Raul Lawrencerejakub Other [employer] Other 03-10-2022 11:30-0500 Body temperature 97.8 [degF] Raul Quan Other [employer] Other 03-10-2022 11:30-0500 Body weight 61.42 kg Raul Quan Other [employer] Other 03-10-2022 11:30-0500 Diastolic blood pressure 64 mm[Hg] Raul Quan Other [employer] Other 03-10-2022 11:30-0500 SaO2% (BldA) [Mass fraction] 98 % Raul Quan Other [employer] Other 03-10-2022 11:30-0500 Systolic blood pressure 108 mm[Hg] Raul Lawrencerejakub Other [employer] Other 02-25-2022 11:09-0500 Blood Pressure Location IVA ANTOINE [facility] [place] 02-25-2022 11:09-0500 Diastolic blood pressure 63 mm[Hg] IVA ARASH [facility] [place] 02-25-2022 11:09-0500 Heart rate 64 /min IVA ARASH [facility] [place] 02-25-2022 11:09-0500 Systolic blood pressure 105 mm[Hg] IVA ARASH [facility] [place] 02-18-2022 14:12-0500 Blood Pressure Location IVA ARASH [facility] [place] 02-18-2022 14:12-0500 Diastolic blood pressure 83 mm[Hg] IVA ARASH [facility] [place] 02-18-2022 14:12-0500 Heart rate 70 /min IVA ARASH [facility] [place] 02-18-2022 14:12-0500 Systolic blood pressure 142 mm[Hg] IVA ARASH [facility] [place] 02-11-2022 08:42-0500 Blood Pressure Location Ivelisse Lue [facility] [place] 02-11-2022 08:42-0500 Diastolic blood pressure 73 mm[Hg] Ivelisse Lue [facility] [place] 02-11-2022 08:42-0500 Heart rate 68 /min Ivelisse Lue [facility] [place] 02-11-2022 08:42-0500 Respiratory rate 16 /min Ivelisse Lue [facility] [place] 12-07-2022 08:42-0500 Systolic blood pressure 150 mm[Hg] Ivelisse Lue [facility] [place] 02-05-2022 08:00-0500 Body temperature 99.1 [degF] DO Shailesh Ball Work Phone: [facility] 02-05-2022 08:00-0500 Diastolic blood pressure 76 mm[Hg] DO Shailesh Ball Work Phone: [facility] 02-05-2022 08:00-0500 Heart rate 78 /min DO Shailesh Ball Work Phone: [facility] 02-05-2022 08:00-0500 Respiratory rate 16 /min DO Shailesh Ball Work Phone: [facility] 02-05-2022 08:00-0500 SaO2% (BldA) [Mass fraction] 95 % DO Shailesh Ball Work Phone: [facility] 02-05-2022 08:00-0500 Systolic blood pressure 168 mm[Hg] DO Shailesh Ball Work Phone: [facility] 02-05-2022 03:21-0500 Body weight 64.1 kg DO Shailesh Ball Work Phone: [facility] 02-04-2022 11:43-0500 Inhaled oxygen flow rate 6 L/min DO Shailesh Ball Work Phone: [facility] 02-04-2022 09:31-0500 Body height 167.64 cm DO Shailesh Ball Work Phone: [facility] 02-04-2022 09:31-0500 Body mass index (BMI) [Ratio] 23.3 kg/m2 DO Shailesh Ball Work Phone: [facility] 01-20-2022 12:30-0500 Body height 170.18 cm Raul Quan Other [employer] Other 01-20-2022 12:30-0500 Body mass index (BMI) [Ratio] 21.92 kg/m2 Raul Buehrer Other [employer] Other 01-20-2022 12:30-0500 Body temperature 97.7 [degF] Raul Buehrer Other [employer] Other 01-20-2022 12:30-0500 Body weight 63.5 kg Raul Buehrer Other [employer] Other 01-20-2022 12:30-0500 Diastolic blood pressure 64 mm[Hg] Raul Buehrer Other [employer] Other 01-20-2022 12:30-0500 SaO2% (BldA) [Mass fraction] 99 % Raul Buehrer Other [employer] Other 01-20-2022 12:30-0500 Systolic blood pressure 116 mm[Hg] Raul Buehrer Other [employer] Other 01-05-2022 11:15-0400 Body height 170.18 cm Raul Buehrer Other [employer] Other 01-05-2022 11:15-0400 Body mass index (BMI) [Ratio] 21.92 kg/m2 Raul Buehrer Other [employer] Other 01-05-2022 11:15-0400 Body temperature 96 [degF] Raul Buehrer Other [employer] Other 01-05-2022 11:15-0400 Body weight 63.5 kg Raul Buehrer Other [employer] Other 01-05-2022 11:15-0400 Diastolic blood pressure 58 mm[Hg] Raul Osorior Other [employer] Other 01-05-2022 11:15-0400 SaO2% (BldA) [Mass fraction] 99 % Raul Quan Other [employer] Other 01-05-2022 11:15-0400 Systolic blood pressure 100 mm[Hg] Raul Osorior Other [employer] Other 11-24-2021 12:30-0400 Body height 170.18 cm Tamar Martinezmoy Other [employer] Other 11-24-2021 12:30-0400 Body mass index (BMI) [Ratio] 21.92 kg/m2 Tamar Martinezmoy Other [employer] Other 11-24-2021 12:30-0400 Body temperature 97.5 [degF] Tamar Martinezjerardokhalida Other [employer] Other 11-24-2021 12:30-0400 Body weight 63.5 kg Tamar Martinezmoy Other [employer] Other 11-24-2021 12:30-0400 Diastolic blood pressure 50 mm[Hg] Tamar Brit Other [employer] Other 11-24-2021 12:30-0400 SaO2% (BldA) [Mass fraction] 98 % Tamar Martinezmoy Other [employer] Other 11-24-2021 12:30-0400 Systolic blood pressure 96 mm[Hg] Tamar Perea Other [facility] [employer] Other 10-21-2021 07:30-0400 50 1 Shailesh E Ball Work Phone: [facility] [place] Work Phone: Comment on above: [id number] 10-15-2021 08:27-0400 Body height 167.64 cm DO Shailesh Ball Work Phone: [facility] 10-15-2021 08:27-0400 Body temperature 97.7 [degF] DO Shailesh Ball Work Phone: [facility] 10-15-2021 08:27-0400 Body weight 66 kg DO Shailesh Ball Work Phone: [facility] 10-15-2021 08:27-0400 Diastolic blood pressure 75 mm[Hg] DO Shailesh Ball Work Phone: [facility] 10-15-2021 08:27-0400 Heart rate 73 /min DO Shailesh Ball Work Phone: [facility] 10-15-2021 08:27-0400 Respiratory rate 16 /min DO Shailesh Ball Work Phone: [facility] 10-15-2021 08:27-0400 SaO2% (BldA) [Mass fraction] 97 % DO Shailesh Ball Work Phone: [facility] 10-15-2021 08:27-0400 Systolic blood pressure 143 mm[Hg] DO Shailesh Ball Work Phone: [facility] 09-30-2021 13:30-0400 Body height 170.18 cm Tamar Perea Other [employer] [facility] [employer] Other 09-30-2021 13:30-0400 Body mass index (BMI) [Ratio] 24.27 kg/m2 Tamar Perea Other [employer] Other 09-30-2021 13:30-0400 Body temperature 97.4 [degF] Tamar Zhuo Other [employer] Other 09-30-2021 13:30-0400 Body weight 70.31 kg Tamar Zhuo Other [employer] Other 09-30-2021 13:30-0400 Diastolic blood pressure 70 mm[Hg] Tamar Zhuo Other [employer] Other 09-30-2021 13:30-0400 SaO2% (BldA) [Mass fraction] 98 % Tamar Zhuo Other [employer] Other 09-30-2021 13:30-0400 Systolic blood pressure 140 mm[Hg] Tamar Martinezjerardoo Other [employer] Other 09-15-2021 11:00-0400 Body height 170.18 cm Tamar Perea Other [employer] Other 09-15-2021 11:00-0400 Body mass index (BMI) [Ratio] 24.27 kg/m2 Tamar Zhuo Other [employer] Other 09-15-2021 11:00-0400 Body temperature 96.4 [degF] Tamar Zhuo Other [employer] Other 09-15-2021 11:00-0400 Body weight 70.31 kg Tamar Zhuo Other [employer] Other 09-15-2021 11:00-0400 Diastolic blood pressure 72 mm[Hg] Tamar Perea Other [employer] Other 09-15-2021 11:00-0400 SaO2% (BldA) [Mass fraction] 98 % Tamar Perea Other [employer] Other 09-15-2021 11:00-0400 Systolic blood pressure 138 mm[Hg] Tamar Perea Other [employer] Other 07-28-2021 10:45-0400 Body height 170.18 cm Raul Quan Other [employer] Other 07-28-2021 10:45-0400 Body mass index (BMI) [Ratio] 24.27 kg/m2 Raul Lawrencerer Other [employer] Other 07-28-2021 10:45-0400 Body temperature 96.6 [degF] Raul Lawrencerejakub Other [employer] Other 07-28-2021 10:45-0400 Body weight 70.31 kg Raul Lawrencerer Other [employer] Other 07-28-2021 10:45-0400 Diastolic blood pressure 78 mm[Hg] Raul Lawrencerer Other [employer] Other 07-28-2021 10:45-0400 SaO2% (BldA) [Mass fraction] 98 % Raul Lawrencerer Other [employer] Other 07-28-2021 10:45-0400 Systolic blood pressure 190 mm[Hg] Raul Buehrer Other [employer] Other Encounters Encounter Date Encounter Type Care Provider Facility Start: 03-24-2023 ambulatory Ivelisse Hassan Facility:C D:[id number] Start: 01-13-2023 End: 01-14-2023 ambulatory Ivelisse M. Lue Facility:[facility] Start: 01-13-2023 End: 01-13-2023 Patient encounter procedure Ivelisse Schreiber Yennicaleb [facility] Start: 11-10-2022 Office outpatient vi sit 25 minutes Raul Quan [facility] Vascular Surgery Start: 11-10-2022 End: 11-10-2022 ambulatory DO Shailesh Dunham Work Phone: [employer] Other Start: 11-10-2022 End: 11-10-2022 Patient encounter procedure DO Shailesh Enrico Work Phone: [facility]-Ultrasound [facility] Start: 10-07-2022 End: 10-08-2022 ambulatory Ivelisse Schreiber Yennicaleb Facility:[facility] Start: 10-07-2022 End: 10-07-2022 Patient encounter procedure Ivelisse Hassan [facility] Start: 08-04-2022 End: 08-04-2022 ambulatory Raul Quan Other [employer] Other Start: 08-04-2022 Postop follow up vis it related to original px Raul Quan [facility] Vascular Surgery Start: 07-28-2022 End: 07-29-2022 ambulatory Ivelissenaseem Hassan Facility:[facility] Start: 07-14-2022 ambulatory Ivelisse M. Yennie Facility:C [id number] Start: 07-09-2022 End: 07-09-2022 ambulatory Shailesh Ball Other [employer] Other Start: 07-09-2022 Telephone encounter Shailesh Dunham [facility] Start: 07-08-2022 End: 07-08-2022 ambulatory Shailesh Dunham Other [employer] Other Start: 07-08-2022 Telephone encounter Shailesh Dunham FP [facility] Start: 07-08-2022 End: 07-09-2022 Evaluation and management of inpatient Shailesh Ball Facility:[facility] Start: 07-08-2022 End: 07-09-2022 Evaluation and management of inpatient DO Shailesh Dunham Work Phone: [facility] [place] [facility] Work Phone: Start: 07-01-2022 End: 07-01-2022 ambulatory Shailesh Dunham Facility:[facility] Start: 07-01-2022 End: 07-01-2022 ambulatory DO Shailesh Dunham Work Phone: [facility] Work Phone: Start: 07-01-2022 End: 07-01-2022 Patient encounter procedure DO Shailesh Dunham Work Phone: [facility] [facility] Work Phone: Start: 06-24-2022 End: 06-25-2022 ambulatory Ivelisse Hassan Facility:[facility] Start: 06-24-2022 End: 06-24-2022 Patient encounter procedure Ivelisse Hassan [facility] Start: 05-21-2022 End: 05-21-2022 ambulatory Shailesh Dunham Other [employer] Other Start: 05-21-2022 Patient encounter procedure Shailesh Dunham [facility] Start: 05-19-2022 End: 05-19-2022 ambulatory Tamar Perea Other [employer] Other Start: 05-19-2022 Follow-up encounter Tamar Brit [facility] Start: 05-13-2022 End: 05-13-2022 ambulatory Raul Quan Other [employer] Other Start: 05-13-2022 Telephone encounter Raul STEPHENSON [facility] Start: 05-11-2022 End: 05-11-2022 ambulatory Shailesh Dunham Facility:[facility] Start: 05-11-2022 End: 05-11-2022 ambulatory DO Shailesh Dunham Work Phone: [facility] Work Phone: Start: 05-11-2022 End: 05-11-2022 Patient encounter procedure DO Shailesh Dunham Work Phone: [facility]-CT Scan [employer] Work Phone: Start: 04-23-2022 End: 04-23-2022 ambulatory Raul Quan Other [employer] Other Start: 04-23-2022 Telephone encounter Raul Quan [facility] Vascular Surgery Start: 04-15-2022 End: 04-16-2022 ambulatory Ivelisse Hassan Facility:[facility] Start: 04-15-2022 End: 04-15-2022 Lab Drop off Ivelisse Hassan [facility] Start: 04-15-2022 End: 04-16-2022 ambulatory Ivelisse Hassan Facility:[facility] Start: 04-15-2022 End: 04-15-2022 Patient encounter procedure Ivelisse Hassan [facility] Start: 04-14-2022 End: 04-14-2022 ambulatory Shailesh Dunham Other [employer] Other Start: 04-14-2022 Telephone encounter Shailesh Dunham [facility] Start: 03-10-2022 End: 03-10-2022 ambulatory Raul Quan Other [employer] Other Start: 03-10-2022 Office outpatient vi sit 25 minutes Raul Quan [facility] Vascular Surgery Start: 02-25-2022 End: 02-25-2022 Patient encounter procedure IVA BUSHRY [facility] [place] Start: 02-18-2022 End: 02-18-2022 Patient encounter procedure IVA BUSHRY [facility] [place] Start: 02-11-2022 End: 02-11-2022 Lab Drop off Ivelisse Hassan [facility] Start: 02-11-2022 End: 02-11-2022 Patient encounter procedure Ivelisse Hassan [facility] [place] Start: 02-10-2022 End: 02-11-2022 ambulatory IVELISSE HASSAN . Facility:[facility] Start: 02-07-2022 Encounter for other preprocedural examination DR RAUL QUAN [facility] [place] [facility] Start: 02-07-2022 Encounter for preprocedural laboratory examination DR RAUL QUAN [facility] Start: 02-04-2022 End: 02-05-2022 Evaluation and management of inpatient Shailesh Dunham Facility:[facility] Start: 02-04-2022 End: 02-05-2022 Evaluation and management of inpatient DO Shailesh Dunham Work Phone: [facility] [place] [facility] Start: 02-02-2022 End: 02-03-[address] RAUL QUAN Facility:[facility] Start: 02-02-2022 End: 02-03-2022 Encounter for other preprocedural examination DR RAUL QUAN Facility:[facility] Start: 01-20-2022 Office outpatient vi sit 25 minutes Raul Quan [facility] Vascular Surgery Start: 01-20-2022 End: 01-20-2022 ambulatory DO Shailesh Dunham Work Phone: [employer] Other Start: 01-20-2022 End: 01-20-2022 Patient encounter procedure DO Shailesh Dunham Work Phone: [facility]-Ultrasound [facility] Start: 01-05-2022 End: 01-05-2022 ambulatory Raul Quan Other [employer] Other Start: 01-05-2022 Office outpatient vi sit 25 minutes Raul Quan [facility] Vascular Surgery Start: 12-08-2021 End: 12-09-[address] SHAILESH DUNHAM Facility:[facility] Start: 12-02-2021 End: 12-02-[address] SHAILESH DUNHAM Facility:[facility] Start: 11-24-2021 End: 11-24-2021 ambulatory Tamar Martinezjerardokhalida Other [employer] Other Start: 11-24-2021 Patient encounter procedure Tamar Brit [facility] Vascular Surgery Start: 11-11-2021 End: 11-11-[address] SHAILESH DUNHAM Facility:[facility] Start: 10-26-2021 End: 10-26-[address] SHAILESH DUNHAM Facility:[facility] Start: 10-21-2021 Patient encounter procedure Shailesh Dunham Work Phone: [facility] [place] Work Phone: Start: 10-16-2021 Telephone encounter Judah Vivas MD Work Phone: [facility] DO Work Phone: Start: 10-15-2021 End: 10-15-2021 Evaluation and management of inpatient DO Shailesh Dunham Work Phone: [facility] Start: 10-13-2021 End: 10-13-2021 Patient encounter procedure DO Shailesh Dunham Work Phone: [facility]-Pre-Surgical Testing Start: 10-06-2021 End: 10-06-2021 Patient encounter procedure DO Shailesh Dunham Work Phone: [facility]-Pre-Surgical Testing Start: 09-30-2021 End: 09-30-2021 ambulatory Tamar Perea Other [employer] Other Start: 09-30-2021 Encounter for other preprocedural examination Tamar Brit [facility] Vascular Surgery Start: 09-30-2021 Follow-up encounter Tamar Perea [facility] Start: 09-22-2021 End: 09-23-[address] SHAILESH DUNHAM Facility:[facility] Start: 09-18-2021 End: 09-18-2021 Patient encounter procedure DO Shailesh Dunham Work Phone: [facility]-CT Scan [employer] Start: 09-15-2021 End: 09-15-2021 ambulatory Tamar Perea Other [employer] Other Start: 09-15-2021 Follow-up encounter Tamar Brit [facility] Start: 08-27-2021 End: 08-27-2021 Patient encounter procedure DO Shailesh Dunham Work Phone: [facility]-Ultrasound [facility] Start: 08-12-2021 End: 08-13-[address] KURTZ LISTED REQUEST Facility:[facility] Start: 07-28-2021 End: 07-28-2021 ambulatory Raul Quan Other [employer] Other Start: 07-28-2021 Office outpatient ne w 45 minutes Raul Quan [facility] Vascular Surgery Start: 06-13-2020 End: 06-13-2020 Patient encounter procedure Lisandra Sher Work Phone: [facility] Work Phone: Patient encounter status Judah Harringotn MD Work Phone: [facility] DO Work Phone: Procedures Date Procedure Procedure Detail Performing Clinician Start: 11-10-2022 Doppler ultrasonography of bilateral carotid arteries DO Shailesh Dunham Work Phone: Start: 07-28-2022 Cystourethroscopy with dilation of urethral stricture Ivelisse Hassan Start: 07-08-2022 Antibody screen Shailesh Dunham Comment on above: Result Comment: PERFORMED BY: [facility] [address] [place] [address] PATHOLOGIST [employer] ZENA CASTELLON M.D. Start: 07-08-2022 Insertion of [...] on above: Performed By: #### DATA1C #### [facility] [address] [place] [address] Dr. 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 Ivelisse Hassan Start: 02-04-2022 Antibody screen Shailesh Dunham Comment on above: Result Comment: PERFORMED BY: [facility] [address] [place] [address] PATHOLOGIST [employer] ZENA CASTELLON M.D. Start: 02-04-2022 Endovascular repair of abdominal aortic aneurysm DO Shailesh Dunham Work Phone: Start: 01-20-2022 Doppler ultrasonography of bilateral carotid arteries DO Shailesh Dunham Work Phone: Start: 09-18-2021 Computed tomography angiography of abdominal and/or pelvic blood vessel DO [email or web address] Work Phone: Start: 08-27-2021 US scan of aorta DO [email or web address] Work Phone: Start: 08-27-2021 Doppler ultrasonography of bilateral carotid arteries DO [email or web address] Work Phone: Start: 06-13-2020 Imm. administration COVID19 [employer] Work Phone: Start: 06-13-2020 SARS-CoV-2 vaccine, 0.5ml [employer] Work Phone: Start: 10-18-2019 Transurethral prostatectomy Ivelisse Lue Start: 04-06-2019 Cystoscope, device (physical object) Ivelisse Lue Start: 10-06-2016 Colonoscopy Ivelisse Lue Comment on above: 2010 Arthroscopy of knee Ivelisse Yenni e Catheterization of left heart Ivelisse Lue Esophagogastroduodenoscopy K athy Lue Plan of Treatment Date Care Activity Detail Author Start: 07-09-2022 [facility] Start: 07-08-2022 [facility] [facility] Start: 07-08-2022 Patient referral to dietitian [facility] Start: 02-05-2022 [facility] Start: 02-04-2022 [facility] Start: 02-04-2022 Hospital admission [facility] Start: 10-21-2021 STRESS NUC, Provider: SAL HHVI NUCLEAR ,[id number], Status: Pen, Time: 7:30 AM STRESS NUC, Provider: SAL HHVI NUCLEAR ,[id number], Status: Pen, Time: 7:30 AM [facility] DO Work Phone: Start: 10-15-2021 [facility] Work Phone: Start: 10-15-2021 OR Percutaneous EVAR AAA (Not Applicable) OR Percutaneous EVAR AAA (Not Applicable) [facility] Start: 10-15-2021 End: 10-15-2021 Evaluation and management of inpatient AAA (abdominal aortic aneurysm) [facility] Start: 10-13-2021 End: 10-13-2021 Patient encounter procedure Departed Clinical [facility] Ddi-Upu-Vmbxbvof Testing Patient Education [facility] Work Phone: Patient referral [facility] Work Phone: Immunizations Immunization Date Immunization Notes Care Provider David holloway 06-13-2020 Rodney and Rodney COVID 19 Vaccine [facility] Comment on above: Note: Patient tolera shyann well. No signs or symptoms of adverse reactions. Patient waited a minimum of 15 minutes. NEGATED: Highlighted row has not occurred!01-13-2023 influenza virus vaccine, unspecified formulation Ivelisse Hassan [facility] Payers Date Payer Category Payer Unknown [id number] . [id number] 1959 Self-pay [id number] 1959 Unknown [id number] 1959 Unknown [id number] 1959 Unknown [id number] 1942 Unknown [id number] 2.16.84 0.1.707894.3.579.2.593 1942 Unknown [id number] 2.16.84 0.1.498104.3.579.2.593 1942 Unknown [id number] 2.16.84 0.1.349414.3.579.2.593 1942 Unknown [id number] 2.16.84 0.1.941077.3.579.2.593 1942 Unknown [id number] 2.16.84 0.1.672770.3.579.2.593 1942 Unknown [id number] 2.16.84 0.1.704477.3.579.2.593 1942 Unknown [id number] 2.16.84 0.1.080270.3.579.2.593 1942 Unknown [id number] 2.16.8 40.1.881449.3.579.2.727 1942 Unknown [id number] 2.16.8 40.1.220493.3.579.2.727 1942 Unknown [id number] 2.16.8 40.1.603414.3.579.2.727 1942 Unknown [id number] 2.16.8 40.1.476046.3.579.2.727 1942 Unknown [id number] 2.16.8 40.1.562919.3.579.2.727 1942 Unknown [id number] 2.16.8 40.1.325762.3.579.2.727 Self-pay Self Pay [id number] Unknown Unknown [facility] [id number] Unknown [id number] 2.16.84 0.1.594281.3.579.2.593 Social History Date Type Detail Facility Tobacco smoking status Unknown i f ever smoked [facility] Work Phone: Start: 03-08-1957 End: 03-08-1996 Sex Assigned At [facility] Start: 10-15-2021 End: 10-07-2022 Tobacco smoking status PRIS Ex-smoker (finding) [facility] Start: 1940 Sex Assigned At Male [facility] Tobacco smoking status Never [facility] Medical Equipment Procedure Code Equipment Code Equipment Origin al Text Equipment Identifier Dates Transcarotid artery revascularization (TCAR) Bare-metal carotid artery stent ()[id number] FDA Start: 07-08-2022 Transcarotid artery revascularization (TCAR) Bare-metal carotid artery stent ()[id number] FDA Start: 07-08-2022 Percutaneous endovascular repair of abdominal aortic aneurysm (AAA) Abdominal aorta endovascular stent-graft ()[id number] FDA Start: 02-04-2022 Percutaneous endovascular repair of abdominal aortic aneurysm (AAA) Abdominal aorta endovascular stent-graft ()[id number] FDA Start: 02-04-2022 Percutaneous endovascular repair of abdominal aortic aneurysm (AAA) Abdominal aorta endovascular stent-graft ()[id number] FDA Start: 02-04-2022 Goals Date Patient Goal Desired Activity /State Functional Status Date Assessment Result Facility 01-13-2023 Functional Status N/A [facility] 10-07-2022 Functional Status N/A [facility] 07-09-2022 Functional status Patient is Pro gressing Toward Baseline [facility] Work Phone: 06-24-2022 Functional Status N/A [facility] 04-15-2022 Functional Status N/A [facility] 02-25-2022 Functional Status N/A [facility] 02-18-2022 Functional Status N/A [facility] 02-11-2022 Functional Status N/A [facility] 02-05-2022 Functional status Patient at Baseline [facility] Work Phone: 10-15-2021 Functional status Patient at Baseline [facility] Work Phone: Mental Status Date Assessment Result Facility 07-09-2022 Cognitive function Cognitive Sta tus Patient is Progressing Toward Baseline [facility] Work Phone: 02-05-2022 Cognitive function Cognitive Sta tus Patient at Baseline [facility] Work Phone: 10-15-2021 Cognitive function Cognitive Sta tus Patient at Baseline [facility] Work Phone: Clinical Notes 04-18-2020 to 01-13-2023 [...] urethra. Follow these instructions at home: Take ggra-hpj-pbqawza and prescription medicines only as told by [...] provider. Document Revised: 09/10/2021 Document Reviewed: 09/10/2021 [employer] Patient Education 2022 [employer]. Follow Up Care 10/07/2022 09:26:45 With:Mo LEIJA, AKILAH Smith, URO Address: When: Unknown [facility] 11-10-2022 Evaluation note Encounter Date Diagnosis Assessment [...] in the office with a CT scan. [facility] Other 08-02-2023 Hospital Discharge instructions Patient Education [...] urethra. Follow these instructions at home: Take dicn-lrs-batrrbz and prescription medicines only as told by [...] provider. Document Revised: 09/10/2021 Document Reviewed: 09/10/2021 [employer] Patient Education 2022 [employer]. Follow Up Care 07/28/2022 10:29:31 With:Mo LEIJA, AKILAH Smith, URO Address: When:Within 3 Day(s) [facility] 05-30-2023 Evaluation note* Encounter Date Diagnosis Assessment [...] a couple of weeks. These have resolved. [facility] Other 05-04-2023 Discharge summary Author Raul Quan [facility] July 09, 2022 12:08pm Note Date/Time July 09, 2022 8:07am [facility] [address] [place] [address] Discharge Summary Signed Patient: Chico Baker MR#: [id number] : 1940 Acct:[id number] Age/Sex: 82 / M Adm Date: 3 Loc: Room: [address] [place] [address]: Raul Quan MD Copies to: [...] midline, neck is supple, no JVD. 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 He has a little [...] <Electronically signed by MD Raul Quan> 07/09/22 9414 [facility] Work Phone: 1(497) 444-998205-03-2023 History and physical note Author Raul Quan [facility] July 08, 2022 11:06am Note Date/Time July 08, 2022 11:06a m [facility] [address] [place] [address] Vascular Surgery H&P Signed Patient: Chico Baker MR#: [id number] : 1940 Acct:[id number] Age/Sex: 82 / M Adm Date: 3 Loc: Room: [address] [place] [address] Type: ADM IN Attending Dr: Raul Quan [...] signed by MD Raul Quan> 07/08/22 1106 [facility] Work Phone: 1(995) 701-443304-19-2023 Hospital Discharge instructions Patient Education 06/24/2022 09:42:41 [...] Follow these instructions at home: Medicines Take qwxe-zpw-fnvrrxy and prescription medicines only as told by [...] or the blood stops without treatment. Take rbli-mlf-juktoxt and prescription medicines only as told by your health care provider. Drink enough fluid to keep your urine pale yellow. This information is not intended to replace advice given to you by your health care provider. Make sure you discuss any questions you have with your health care provider. Document Revised: 10/23/2020 Document Reviewed: 10/23/2020 [employer] Patient Education 2022 [employer]. 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 Walk daily Inspect feet daily for cuts [facility] Other 03-14-2023 Evaluation note* Encounter Date Diagnosis [...] left TCAR procedure once he returns from [place] at the end of June beginning of [...] agree with plan, and denies any questions. [facility] Other 03-08-2023 Evaluation note* Encounter Date Diagnosis Assessment Notes Treatment Notes Treatment Clinical Notes May, Carotid stenosis, bilateral (ICD-10 - I65.23) CTA: < 50% right, 80% left [facility] Other 03-08-2023 Evaluation note* Encounter Date Diagnosis Assessment Notes Treatment Notes Treatment Clinical Notes May, Carotid stenosis, bilateral (ICD-10 - I65.23) CTA: < 50% right, 70% left - 05/2022 [facility] Other 02-08-2023 Hospital Discharge instructions Patient Education [...] prostate. Follow these instructions at home: Take bfrl-zmm-xztipxm and prescription medicines only as told by [...] 02/19/2001 Document Revised: 05/07/2018 Document Reviewed: 11/12/2016 [employer] Patient Education 2020 [employer]. Follow Up Care 02/11/2022 10:55:52 With:Mo LEIJA, AKILAH Smith, URO Address: When: Unknown [facility] 02-07-2023 Evaluation note* Encounter Date Diagnosis Assessment Notes Treatment Notes Treatment Clinical Notes Apr, Primary hypertension (ICD-10 - I10) [facility] Other 01-03-2023 Evaluation note* Encounter Date Diagnosis [...] to perform simultaneously to minimize contrast exposure. [facility] Other 12-21-2022 Hospital Discharge instructions Patient Education 02/25/2022 12:02:33 Rash, Adult, Ionr-qc-Ghyd Rash, Adult A rash is a change [...] with your condition: Medicine Take or apply yegb-wyw-xwybyka and prescription medicines only as told by [...] the rash from spreading. Take or apply nihv-vge-vovskil and prescription medicines only as told by [...] 08/10/2008 Document Revised: 06/16/2019 Document Reviewed: 09/26/2018 [employer] Patient Education 2019 [employer] Follow Up Care 02/18/2022 14:33:21 With:Ivelisse Hassan Address:Unknown When: Unknown Comments:Appointment has already been scheduled [facility] 12-14-2022 Hospital Discharge instructions Patient Education 02/18/2022 [...] including vitamins, herbs, eye drops, creams, and mddx-whs-voaaase medicines. Any problems you or family members [...] provider tells you to take them. Taking hptc-gfi-lhktixa medicines, vitamins, herbs, and supplements. Eating and [...] 02/22/2006 Document Revised: 06/14/2019 Document Reviewed: 11/23/2018 [employer] Patient Education 2019 [employer]. Follow Up Care 02/17/2022 16:33:06 With:ARASH BUCHANAN, IVA Ellis, URL Address: [address] [place] [address] [phone] When:02/25/2022 [facility] 12-07-2022 Hospital Discharge instructions Patient Education 02/11/2022 [...] prostate. Follow these instructions at home: Take abtw-uor-mxbthvz and prescription medicines only as told by [...] 02/19/2001 Document Revised: 05/07/2018 Document Reviewed: 11/12/2016 [employer] Patient Education 2020 [employer]. Follow Up Care 01/28/2021 10:15:04 With:Mo LEIJA, AKILAH Smith, URO Address: When:6 weeks [facility] 12-01-2022 Discharge summary Author Raul Quan [facility] February 05, 2022 10:08am Note Date/Time February 05, 2022 7 :52am [facility] [address] [place], [place] [id number] Discharge Summary Signed Patient: Chico Baker MR#: [id number] : 1940 Acct:[id number] Age/Sex: 81 / M Adm Date: 2 Loc: 4N Room: 2W4423-[address]: Raul Quan MD Copies to: [...] % (Auto) 69.5, Lymph % (Auto) 14.4, [place] % (Auto) 14.8, Eos % (Auto) 0.7, Baso % (Auto) 0.6, Nucleat RBC Rel Count 0.1, Neut # (Auto) 7.1, Lymph # (Auto) 1.5, [place] # (Auto) 1.5 H, Eos # (Auto) 0.1, Baso # (Auto) 0.1 02/04/22 08:25: Corrected WBC 9.3, Uncorrected WBC Count 9.3, RBC 4.10, Hgb 12.4L, Hct 37.5 L, MCV 91.5, MCH 30.2, MCHC 33.0, RDW 13.7, Plt Count 198, MPV 8.5, Neut % (Auto) 70.1, Lymph % (Auto) 16.4, [place] % (Auto) 12.0, Eos % (Auto) 0.9, Baso % (Auto) 0.6, Nucleat RBC Rel Count 0.0, Neut # (Auto) 6.5, Lymph # (Auto) 1.5, [place] # (Auto) 1.1 H, Eos # (Auto) [...] <Electronically signed by MD Raul Quan> 02/05/22 1001 [facility] Work Phone: 1(292) 204-101711-15-2022 Evaluation note* Encounter Date Diagnosis Assessment Notes [...] we will evaluate him for left TCAR. [facility] Other 10-31-2022 Evaluation note* Encounter Date Diagnosis [...] complete and CT confirms candidacy for TCAR [facility] Other 09-19-2022 Evaluation note* Encounter Date Diagnosis Assessment Notes Treatment Notes Treatment Clinical Notes Nov, AAA (abdominal aortic aneurysm) without rupture (ICD-10 - I71.4) This patient is still recovering from his recent orthopedic procedures. He continues with physical therapy and although he is getting stronger, he remains quite fatigued and weak yet. He has an upcoming appointment with his cut in station operator for preoperative risk assessment and stratification this next week. We will give him a few more weeks of physical therapy and have him back in a month or so to reschedule his AAA. He did tell me that he had some abdominal pain while in the correction facility and was taken to the [facility] [place] [facility] where a CT of the abdomen was obtained. We will get these studies pushed over for review and comparison. He denies any abdominal pain today and tells me his appetite is pretty good. He knows to call us in the meantime with any issues. [facility] Other 07-26-2022 Evaluation note* Encounter Date Diagnosis [...] agrees with this plan, denies any questions. [facility] Other 07-11-2022 Evaluation note* Encounter Date Diagnosis [...] agrees with this plan, and denies questions. [facility] Other 07-11-2022 Evaluation note* Encounter Date Diagnosis [...] agrees with this plan, and denies questions. [facility] Other 05-23-2022 Evaluation note* Encounter Date Diagnosis [...] returns we will get baseline ankle-brachial indices. [facility] Other 10-06-2021 NoteHNO ID: [id number] Author: Power Catherine MD Service: ? Author Type: Physician Type: Progress Notes Filed: 12/11/2020 11:17 AM Note Text: [facility] OUTPATIENT VISIT DATE December 11, 2020 OUTPATIENT VISIT TYPE EST PRIMARY CARE PHYSICIAN: Shailesh Dunham (Jere) [address] [place] [address] REFERRING PHYSICIAN Power Catherine [address] [facility] [address] CHIEF COMPLAINT: Patient presents with: Established Patient [...] up. Continue statin therapy. ? Power Catherine, [facility]02-11-2021 NotePatient Outreach (COVAMN) CHICO BAKER Abad ([id number]) 1940 M Date Time Provider Department 04/18/20 KIMBERLEY REHMAN During your visit today, we recorded the following information about you: Allergies As of Date: 04/18/2020 Noted Allergy Reaction SHALINI INHIBITORS 05/09/2015 16 - Unknown GADOLINIUM-CONTAINING CONTRAST ME*05/09/2015 16 - Unknown TETANUS VACCINES AND TOXOID 05/16/2015 16 - Unknown Date Reviewed: 10/18/2017 Reviewed by: Power Catherine - Fully Assessed Order(s):SARS-COVID VACCINE 1ST DOSE APPT [[id number]] Order #: [id number] FUTURE Prescriptions as of 04/18/2020 Sig: ASPIRIN [...] (None) Encounter Status:Closed by EPIC, PRODUSER on 04/22/20[facility] Evaluation + Plan note Future Appointments Appointment Date:04/15/2022 08:45:00 AM Scheduled Provider:Ivelisse Hassan MD Location:[facility] Appointment Type:URO Office Visit [facility] evaluation + Plan note Future Appointments Appointment Date:04/15/2022 08:45:00 AM Scheduled Provider:Ivelisse Hassan MD Location:[facility] Appointment Type:URO Office Visit Diagnostic Tests Pending * Urine [facility] Future App[facility]ments Appointment Date:02/25/2022 11:00:00 AM Scheduled Provider:IVA ANTOINE PA-C Location:[facility] Appointment Type:URO Office Visit Appointment Date:04/15/2022 08:45:00 AM Scheduled Provider:Ivelisse Hassan MD Location:[facility] Appointment Type:URO Office Visit [facility] evaluation + Plan note Future Appointments Appointment Date:06/24/2022 09:30:00 AM Scheduled Provider:Ivelisse Hassan MD Location:[facility] Appointment Type:URO Office Visit [facility] evaluation + Plan note Future Appointments Appointment Date:01/13/2023 09:00:00 AM Scheduled Provider:Ivelisse Hassan MD Location:[facility] Appointment Type:URO Office Visit [facility] evaluation note* Diagnosis Onset Date Resolution Status AAA (abdominal aortic aneurysm) [facility] Work Phone: Evaluation noteNo assessment information available [facility] Work Phone: Evalulqlgu noteNo InformationNortCl[facility] [employer] Other Evaluvmkpr note* Diagnosis Onset Date Resolution Status Left carotid stenosis acute [facility] Work Phone: History general Narrative - Reported* Type Description Date Medical History hypercholesterolemia Medical History abdominal aortic aneurysm Medical History Carotid stenosis Medical History PAD Surgical History TURP Surgical History knee arthroscopy LEFT Surgical History Vein stripping Hospitalization History See Above [facility] Other Hispdrk general Narrative - Reported* Type Description Date Medical History hypercholesterolemia Medical History abdominal aortic aneurysm Medical History Carotid stenosis Medical History PAD Surgical History TURP Surgical History knee arthroscopy LEFT Surgical History Vein stripping Surgical History RT FEMUR FX WITH ARABELLA PLACEMENT Hospitalization History See Above [facility] Other Hisqpth general Narrative - Reported* Type Description Date Medical History hypercholesterolemia Medical History abdominal aortic aneurysm Medical History Carotid stenosis Medical History PAD Medical History [ ] Surgical History TURP Surgical History knee arthroscopy LEFT Surgical History Vein stripping Surgical History RT FEMUR FX WITH ARABELLA PLACEMENT Surgical History EVAR 02/04/2022 Surgical History [ ] Hospitalization History See Above [facility] Other Hiszfze general Narrative - Reported* Type Description Date [...] History COLONOSCOPY 2019 Hospitalization History See Above [facility] Other History general Narrative - Reported* Type [...] Left TCAR 07/2022 Hospitalization History See Above [facility] Other Hisyxer general Narrative - Reported* Type Description Date [...] Left TCAR 07/2022 Hospitalization History See Above [facility] Other Hospital course Narrative No data available for this section [facility] Discharge instructions No data available for this section [facility] Author Raul Buehrer [facility] October 15, 2021 4:31pm Note Date/Time October 15, 2021 4: 31pm [facility] [address] [place] [address] Vascular Surgery Progress Note Signed Patient: Chico Baker MR#: [id number] : 1940 Acct:[id number] Age/Sex: 81 / M Adm Date: 2 Loc: 4 Room: [address] [place] [address] Type: DIS IN Attending Dr: Raul Quan [...] proceed with evaluation here. I will contact [facility] to performoutpatient cardiac evaluation and then he will be rescheduled when he is cleared. Code(s): I71.4 - Abdominal aortic aneurysm, without rupture Status: Acute Documented By: Raul Quan MD 10/15/21 162 9 Signed By: <Electronically signed by MD Raul Quan> 10/15/21 1631 [facility] Work Phone: Progress note Author Pb Zurita [facility] October 16, 2021 5:41am Note Date/Time October 16, 2021 5: 41am [facility] [address] [place] [address] Anesthesia Progress Note Signed Patient: Chico Baker MR#: [id number] : 1940 Acct:[id number] Age/Sex: 81 / M Adm Date: 2 Loc: 4N Room: 1Y0902-0 Type: DIS IN Attending Dr: Raul Quan MD Copies to: ~ Anesthesia Progress Note Narrative Narrative: Patient for EVAR today for 5+ centimeter infrarenal AAA. Past medical history hypertension, moderate aortic stenosis, and coronary artery disease. Review of medical records and discussion with indicates patient had stress test 2008 positive for infarct and ischemia at which time he was referred to [facility] and had cardiac cath. Medical management was apparently chosen. No interval events,testing, or intervention. Patient has been asymptomatic but sedentary and poor historian. Advised patient and family to see cut in station operator for consideration of preop stress testing. Discussed with surgeon Documented By: Pb Zurita MD 10/16/21 0535 Signed By: <Electronically signed by Pb Zurita MD> 10/16/21 0541 [facility] Work Phone: Progress note No data available for this section [facility] Reason for Referral No Reason for Referral [...] section and content) DATE CREATED AUTHOR 04/02/2021 [facility] DATE CREATED AUTHOR AUTHOR'S ORGANIZ ATION 10/28/2021 [facility] DATE CREATED AUTHOR AUTHOR'S ORGANIZ ATION 04/14/2022 [facility] DATE CREATED AUTHOR AUTHOR'S ORGANIZ ATION 11/11/2022 [facility] DATE CREATED AUTHOR AUTHOR'S ORGANIZ ATION 03/05/2023 [facility] REASON FOR VISIT (unrecogniz ed section and content) REF BY DR DUNHAM FOR AAA, PAD AND CAROTID STENOSIS, Needs a new vascular surgeon7 [facility]K FOLLOW UP; SHYANNE'S, ABDOMINAL, CAROTID [facility] FOLLOW UP; SHYANNE'S, ABDOMINAL, CAROTID 08/27/21FOLLOW UP [facility] 09/18/21-AAAAAA see pt post femur fx rt and clavicle rt6 [facility] FOLLOW UP, Follow-up abdominal aortic aneurysmVASC 3 MONTH FOLLOW UP; CAROTID DUPLEX 11A, Abdominal aortic aneurysm3 week f/u EVAR, Follow-up after percutaneous aneurysm repairNo InformationNo InformationNo InformationNo InformationNo Information2 MONTH FOLLOW UP; [facility]/ Follow UpNo InformationNo InformationNo Information3 week f/u [...] , DO Primary Care Provider Active Raul uQan MD Admit Provider, Attending Provide r Active [...] BE BASED ON THE PRIMARY CLINICAL RECORDS. [employer] provides no warranty or guarantee of the accuracy or completeness of information in this document.
--- NOTE | 2023-03-24 11:30 | XR_ITS ---
[address] [address] Patient Name: CHICO BAKER MRN: [id number] date: 1940 Sex: M Assigned Patient Location: [facility] Current Patient Location: [facility] Accession/Order Number: [id number] Exam Date: 03/24/2023 11:30 Report Date: 03/24/2023 11:42 At the request of: SHERMAN AGUILAR Procedure: XR abdomen 1V EXAMINATION: XR abdomen 1V HISTORY: preop COMPARISON: 02/19/2023 FINDINGS: KIDNEY/URETER - RIGHT: Nephrolithiasis measuring up to 10.6 mm KIDNEY/URETER - LEFT: Nephrolithiasis measuring up to 14.2 mm PELVIS: No visible ureteral calcifications. Any visible calcifications favor phleboliths. BOWEL: No abnormal dilation or deviation. BONES: No acute abnormality. 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 Right hip internal fixation XR/XR abdomen 1V IMPRESSION: Stable bilateral nephrolithiasis Electronically authenticated by: ROCIO RICARDO Date: 03/24/2023 11:42
[2023-03-24] MEDS: LACTATED RINGER'S SOLUTION 1,000 ML 50 ML IV (12:02)
[2023-03-24] MEDS: CEFAZOLIN SODIUM/DEXTROSE,ISO 2 GM/50 ML PIGGYBACK IV (12:53)
--- NOTE | 2023-03-24 13:53 | P.URON_ITS ---
Urology Surgery Operative Note Operative Note Procedure Date: 03/24/23 Time Out Performed: yes Pre-op Diagnosis: Left kidney stone Post-op Diagnosis: same as pre-op Procedures performed: 1. Left extracorporeal shock wave lithotripsy 2. Cystoscopy, left ureteral stent placement Anesthesia: General-LMA (Dr. Vilchis) Primary Surgeon: Ivelisse Hassan Complications: none Estimated blood loss (mL): 0 Findings: Mild short bulbar urethral stricture, able to accommodate cystoscope with gentle manipulation. Widely patent prostatic urethra TUR defect with minimal bilobar apical regrowth, non-obstructing, no visible verumontanum. 1-2+ trabeculated bladder. Smaller bladder capacity. Radiopaque large left lower pole stone seen to fragment with 3000 shocks. Left ureteral stent placed due to stone size ~ 2 cm Specimens: none Drains: 4.8Fr x 22-30 cm JJ left ureteral stent Indications for Procedures: The patient was evaluated in clinic and deemed a candidate for left extracorporeal shock wave lithotripsy, cystoscopy with left stent placement given large stone burden near 2 cm. Risks were discussed to include but not limited to bleeding, pain, infection, damage to surrounding structures, inability to treat the stone/place stent, residual fragments, obstruction and need for additional procedures. The patient understands the stent is not permanent and needs to be removed or exchanged within 3 months to prevent encrustation, infection, invasive procedures and/or permanent renal damage. Detailed description of Procedure: After informed consent was obtained, the patient was brought to the operating room and placed on the lithotripsy bed in supine position. Sequential compression devices were placed on bilateral lower extremities. The patient received the appropriate dose of preoperative IV antibiotics and general anesthesia LMA was induced. An operative time out was performed confirming the patient's identity, procedure, laterality and safety checks. The patient was positioned in modified dorsolithotomy with the appropriate pressure points padded, prepped, and draped in the usual sterile fashion for this procedure. The patient was positioned with the Siemens Modularis Lithostar lithotripter head on the left flank. The stone was triangulated using fluoroscopy. A total of 3000 shocks were provided and the stone was seen to fragment well. Still visualized but much more faint than preop. Meanwhile, a 22 Divehi rigid cystoscope with 30 degree lens was inserted into the patient's urethra and bladder without difficulty. There were no bladder tumors, lesions, stones or foreign bodies. Bilateral ureteral orifices were orthotopic and patent. I turned my attention to the left ureteral orifice and a sensor wire was inserted into the left ureter up to the renal pelvis confirmed on fluoroscopy. A 4.8Fr x 22-30cm JJ variable length ureteral stent was advanced over the wire, noting adequate curl in the renal pelvis and bladder on fluoroscopic and direct visualization. The bladder was irrigated until clear and inspected one final time to ensure adequate position of stent and no undue trauma to the bladder was done. The bladder was drained and cystoscope was removed. The patient tolerated the procedure well without complication. The patient was awakened from anesthesia and sent to the PACU in stable condition. Plan: Discharge home with strainer, tamsulosin and oxybutynin. Obtain KUB in 2 weeks to determine second stage L ESWL if stone responded well but with residual vs left ureteroscopy with laser litho/stone removal, stent exchange if stone did not respond vs cysto, L stent removal in office if minimal residual fragments. Other Provider present: No Post Operative care instructions: see discharge instructions Attending Doc Confirm Attending Attestation: Yes
[2023-03-24] MEDS: HYDRALAZINE HCL 20 MG/ML VIAL 10 MG IVP ×2 (14:23→14:30)
--- NOTE | 2023-03-24 15:39 | PC.NURSE ---
Pt instructed to take carvedilol as soon as he gets home. Pt to come to ER if not feeling well or has high BP. Pt to see Dr. Vinson at 0900 tomorrow . Nica Hansen RN
== END 2023-03-24 15:30 | disposition home or self-care (01) ==
PROVIDERS: PCP Internal Medicine; Visit Provider Urology
PROC: (CPT 50590; principal; 2023-03-24 12:30)
DX: N20.0 Calculus of kidney (principal); I10 Essential (primary) hypertension; Z79.01 Long term (current) use of anticoagulants; N35.912 Unspecified bulbous urethral stricture, male; N32.89 Other specified disorders of bladder; I25.10 Atherosclerotic heart disease of native coronary artery without angina pectoris; N52.9 Male erectile dysfunction, unspecified; E78.5 Hyperlipidemia, unspecified; N40.1 Benign prostatic hyperplasia with lower urinary tract symptoms; N39.498 Other specified urinary incontinence; N39.43 Post-void dribbling; R31.21 Asymptomatic microscopic hematuria; Z87.891 Personal history of nicotine dependence; Z87.442 Personal history of urinary calculi; R35.1 Nocturia; Z79.82 Long term (current) use of aspirin
CPT/HCPCS: 50590; 52332; 36415; 74018; C1874; J0131; J0360; J0690; J2405; J2704; J3010

== ENCOUNTER 2023-03-24 18:05 | Observation (INO) | payer MEDICARE, OTHER, SELFPAY ==
[2023-03-24] VITALS (19 sets, daily range): BP systolic 139–204; BP diastolic 65–106; PULSE 68–86; RESP 10–22; TEMP 36.4–36.9; O2SAT 94–99; BMI 21.5; BMI 22.0
--- OUTSIDE RECORDS SUMMARY | 2023-03-24 18:22 | XMS_ITS | CCD ---
Author Name Unknown Address [address] [place] [address] Organization [employer] Care Team Providers Care Protective Services Officer Name Role Phone Orlando Dotson Unavailable Raul Quan Unavailable Tamar Perea Unavailable Shailesh Dunham Unavailable DO Shailesh Dunham Primary Care Provider [phone] MD Raul Quan Attending Provider KB Perea Attending Provider MD Raul Quan Admit Provider DO Shailesh Dunham Primary Care Provider KB Perea Attending Provider MD Raul Quan Admit Provider MD Raul Quan Attending Provider [phone] SHAILESH DUNHAM Primary Care Physician [phone] [place] .IVELISSE Admitting Unavailable LUCaleb .IVELISSE Attending [...] Consulting Unavailable SCHRECECILIA, DEL Consulting Unavailable PELZ, AYB Consulting Unavailable STRAWSER, NICOLE Consulting Unavailable REQUEST, NONE LISTED Admitting Unavaila ble REQUEST, NONE LISTED Attending Unavaila ble ENRICO, DR MEADE Primary Care Unavailable REQUEST, NONE LISTED Consulting Unavaila ble Shailesh Dunham Unavailable DO Shailesh Dunham Primary Care Provider MD Raul Quan Attending Provider DO Shailesh Dunham Primary Care Provider MD Raul Quan Attending Provider MD Raul Quan Admit Provider [phone] DO Shailesh Dunham Primary Care Provider MD Raul Quan Attending Provider Shailesh Dunham Primary [facility] Unavailable Tamar Perae Admitting Unavailable Tamar Perea Attending Unavailable Shailesh Dunham Primary Care Unavailable Raul Quan Admitting Unavailable Raul Quan Attending Unavailable Shailesh Dunham Primary Care Unavailable Raul Quan Attending Unavailable Raul Quan Admitting Unavailable Shailesh Dunham Primary Care Unavailable Raul Quan Attending Unavailable Raul Quan Admitting Unavailable Enrico Shailesh Primary Care Unavailable Raul Quan Admitting Unavailable Raul Quan Attending Unavailable Enrico [place] [facility] Unavailable Raul Quan Attending Unavailable [...] Converting Enzyme (Shalini) Inhibitors Drug allergy Unknown [facility] Other (6 sources) Tetanus vaccine; Translations: [tetanus toxoid] Drug allergy Unknown [facility] Repository (19 sources) Angiotensin Converting Enzyme (Shalini) Inhibitors; Translations: [Angiotensin-conve rting enzyme inhibitor agent (substance)] Allergy to substance 02-24-20 19 Hiv, [facility] (8 sources) Contrast media Allergy to substance 10-07-19 22 [facility] (8 sources) Tetanus immune globulin Drug Allergy 02-24-20 19 Unknown Reaction [facility] (15 sources) Angiotensin-conver ting enzyme inhibitor agent Drug allergy Unknown [facility] Other (2 sources) Tetanus toxoid specific immunoglobulin E Drug allergy Unknown [facility] Other (10 sources) Contrast media; Translations: [Contrast Dye] Allergy to substance unknown [facility] (10 sources) Iodine; Translations: [iodine] Drug Allergy Unknown (qualifier value) [facility] (9 sources) tetanus toxoid vaccine, inactivated; Translations: [tetanus toxoid] Drug Allergy Unknown (qualifier value) [facility] (1 source) Iodine Drug Allergy [facility] Repository (1 source) Iodine (And Iodine Containting Drugs) Drug allergy (disorder) [facility] Rep[facility] (1 source) Tetanus AND Diphtheria Tox,Adult Drug allergy (disorder) [facility] Rep[facility] (13 sources) Tetanus vaccine Drug allergy Unknown [facility] Other (3 sources) Iodinated Contrast Media Allergy to substance 07-02-19 23 [facility] Medications Current Medications Medication Drug Class(es) [...] Start: 02-11-2022 take 2 tablets by mo [facility] three times daily calcium (as [...] PO Daily February 23, 2019 1:00am Isosorbide [place] itrate Active isosorbide dinitrate 30 mg oral [...] Daily, # 30 tab(s), Refills(s) 6, Pharmacy: [facility]/pharmacy #[id number], 169, cm, 10/07/22 8:54:00 EDT, [...] for 30 day(s), 60 tab(s), Refill(s) 0, [facility]/pharmacy #[id number], 169, cm, 02/11/22 8:44:00 EST, [...] acid 7540 MG / polyethylene glycol 3350 30827 MG / potassium chloride 1200 MG / sodium ascorbate 51759 MG / sodium chloride 3200 MG Powder for Oral Solution) / 1 (polyethylene glycol 3350 098006 MG / potassium chloride 1000 MG / [...] Coronary arteriosclerosis; Translations: [Atherosclerotic heart disease of [place] coronary artery without angina pectoris] Onset: 11-14-2021 [...] 2 Episodic Other aftercare (1 source) Other longterm (current) drug therapy; Translations: [OTH BUSINESS SYSTEMS ADVISOR CURRENT DRUG THERAPY] Onset: 2 Episodic Other aftercare (1 source) residential (current) use of anticoagulants; Translations: [BUSINESS SYSTEMS ADVISOR CURRNT USE ANTICOAGULANTS] Onset: 2 Episodic Other aftercare (1 source) 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 Orders placed. Possible ESWL pending size of stones. No follow up at this time. Pt to be called with results. Called pt and reminded him to complete LINDSEY/KUB @ [facility] in the next month. Orders were [...] 02/22/2023 16:05:00 EST From: Belkis Johnson MA ([facility] Recalls [facility]) To: Ivelisse Hassan MD; Sent: [...] KML Patient is scheduled for 03/24/22 @ [facility] Comment on above: Result Comment: Miss ing Attachment - attachment exceeds size limitation (02/19/2023) RAD - Ultrasound Report Can be viewed in source system Missing Attachment - attachment exceeds size limitation (02/19/2023) RAD - MISC Can be viewed in source system RAD - MISCon 02-22-2023 RAD - MISC [id number]#1.00TIFF [facility] RAD - Ultrasound Reporton RAD - Ultrasound Report [id number]#1.00TIFF [facility] [place] 01-14-2023 Screens [id number]#1.00TIFF Normal [facility] Screens [id number] Normal [facility] Patient Educationon 01-14-20 23 Patient Education Urology [...] Follow these instructions at home: ? Take burq-bqt-heqpmuj and prescription medicines only as told by [...] the medicine (more content not included)... Normal [facility] Urology Office/Clinic Noteon 01-13-2023 Urology Office/Clinic Note [...] with voice recognition artificial intelligence software, specifically Akanoo, Moodyo and or Sonian. Substitutions may have occurred due to the [...] stones no (more content not included)... Normal [facility] Comment on above: Result Comment: Elec tronically Signed By: Ivelisse Hassan MD\.br\Date and Time Signed: 01/13/23 16:25 EST\.br\Electronically Co-Signed By: Faviola Clemens\.br\Date and Time Co-Signed: 01/13/23 09:59 EST US carotid doppler BIon 09-0 US carotid doppler BI [facility] Main [place] [address] [place] [address] Ultrasound Report Signed Patient: Chico Baker MR#: [id number] : 1940 Acct:[id number] Age/Sex: 82 / M ADM Date: 11/10/22 Loc: [facility] Room: Type: [facility] Attending Dr: Raul Quan MD Ordering Provider: [...] Raul Quan M.D.11/10/2022 10:30 AM Dictation Location: [place] [address] Tech: Harika Pradhan Transcribed By: ALEX 11/10/22 1030 Dictated By: Raul Quan MD 11/10/22 1029 Signed By: 11/10/[address] 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 Take exct-ffp-icormwy and prescription medicines only as told by [...] the medicine (more content not included)... Normal [facility] Urology Office/Clinic Noteon 10-07-2022 Urology Office/Clinic Note [...] lower urinary tract symptoms) hx TURP by [facility] 2019, prostate small on 05/11/22 CT scan [...] neg, s (more content not included)... Normal [facility] Comment on above: Result Comment: Elec tronically Signed By: Mo LEIJA, Ivelisse Schreiber\.br\Date and Time Signed: 10/07/22 10:28 EDT\.br\Electronically Co-Signed By: Eleonora Belcher\.br\Date and Time Co-Signed: 10/07/22 09:25 EDT Consent for Procedure/Surger yon 07-29-2022 Consent for Procedure/Surgery [id number]#[id number]:127 [facility] Patient Educationon 07-29-19 Patient Education Urology Erectile [...] these instructions at home: Medicines ? Take qqtd-yuv-vvprugm and prescription medicines only as told by [...] include cig (more content not included)... Normal [facility] Urology Office/Clinic Noteon 07-28-2022 Urology Office/Clinic Note [...] urine The Urethra was dilated to: 16-24 Frisian with connor sounds without difficulty Soft 14 [...] (erectile d (more content not included)... Normal [facility] Comment on above: Result Comment: Elec tronically Signed By: Mo LEIJA, Ivelisse Schreiber\.br\Date and Time Signed: 07/28/22 10:49 EDT\.br\Electronically Co-Signed By: Clarissa Joaqiun MA\.br\Date and Time Co-Signed: 07/28/22 10:28 EDT Activated Clotting Timeon Activated Clotting Time POC 335 s High 90-139 [facility] Comment on above: Result Comment: Refe rence Range: 90-139 (Non-heparinized) PERFORMED BY: [place] [address] PATHOLOGIST BEARING PRESS MACHINE OPERATOR ZENA CASTELLON M.D. Performed By: #### C BC, BMP #### [facility] [address] [place] [address] Activated Clotting Time POC 143 s High 90-139 [facility] Comment on above: Result Comment: Refe rence Range: 90-139 (Non-heparinized) PERFORMED BY: [place] [address] PATHOLOGIST BEARING PRESS MACHINE OPERATOR ZENA CASTELLON M.D. Performed By: #### C BC, BMP #### [facility] [address] [place] [address] Blood activated clotting sue e by coagulation assayOrdered By: Raul Quan on 07-08-2022 ACT Coag (Bld) 335 s 90-139 [facility] Comment on above: Reference Range: 90- 139 (Non-heparinized) Laboratory - CoagulationOrde red By: Raul Quan on 07-08-2022 PT Coag (PPP) [Time] 11.7 s 9.0-12.9 [facility] Platelet poor plasma interna tional normalized ratio (INR) by coagulation assay (relatOrdered By: Raul Quan on 07-08-2022 INR Coag (PPP) [Relative time] 1.0 {INR} [facility] Comment on above: INR Therapeutic Rang [...] Coag (PPP) [Relative time] 1.0 {INR} Normal [facility] Comment on above: Result Comment: INR [...] heart valves: 3 - 4.5 PERFORMED BY: [place] [address] PATHOLOGIST BEARING PRESS MACHINE OPERATOR ZENA CASTELLON M.D. Performed By: #### C BC, BMP #### [facility] [address] [place], [place] [id number] [facility] PT Coag (PPP) [Time] 11.7 s Normal 9.0-12.9 [facility] Comment on above: Performed By: #### C BC, BMP #### [facility] [address] [place] [address] [place] Type and Screenon 07-08-2022 ABO and Rh group Nom (Bld) Blood group A Rh(D) positive Normal [facility] Comment on above: Result Comment: PERF ORMED BY: [place] [address] PATHOLOGIST BEARING PRESS MACHINE OPERATOR ZENA CASTELLON M.D. Alanine aminotransferase [En zymatic activity/volume] in Serum or PlasmaOrdered By: Raul Quan on 07-01-2022 ALT [Catalytic activity/Vol] 9 U/L 7-52 [facility] Albumin [Mass/volume] in Ser um or Plasma by Bromocresol green (BCG) dye binding methoOrdered By: Raul Quan on 07-01-2022 Albumin BCG dye [Mass/Vol] 3.7 g/dL 3.5-5.7 [facility] Alkaline phosphatase [Enzyma tic activity/volume] in Serum or PlasmaOrdered By: Raul Quan on 07-01-2022 ALP [Catalytic activity/Vol] 96 U/L 34-104 [facility] Aspartate aminotransferase [ Enzymatic activity/volume] in Serum or PlasmaOrdered By: Raul Quan on 07-01-2022 AST [Catalytic activity/Vol] 14 U/L 13-39 [facility] Basophils Auto (Bld) [#/Vol] Ordered By: Raul Dovermary ann on 07-01-2022 Basophils (Bld) [#/Vol] 0.1 10*3/uL 0.0-0.2 [facility] Basophils/100 WBC Auto (Bld) Ordered By: Raul [facility] on 07-01-2022 Basophils/100 WBC (Bld) 0.7 % . [facility] Bilirubin.total [Mass/volume ] in Serum or PlasmaOrdered By: Raul Dovermary ann on 07-01-2022 Bilirubin [Mass/Vol] 0.5 mg/dL 0.3-1.0 [facility] Calcium [Mass/volume] in Ser um or PlasmaOrdered By: Raul Quan on 07-01-2022 Calcium [Mass/Vol] 8.5 mg/dL 8.6-10.3 [facility] Carbon dioxide, total [Moles /volume] in Serum or PlasmaOrdered By: Raul [facility] on 07-01-2022 CO2 [Moles/Vol] 24.6 mmol/L 21.0-31.0 [facility] Chloride [Moles/volume] in S aisha or PlasmaOrdered By: Raul Dovermary ann on 07-01-2022 Chloride [Moles/Vol] 100 mmol/L 98-107 [facility] Complete Blood Count Auto Di ffon 07-01-2022 Basophils (Bld) [#/Vol] 0.1 10*3/uL Normal 0.0-0.2 [facility] Comment on above: Result Comment: PERF ORMED BY: [facility] [address] [place] [address] PATHOLOGIST BEARING PRESS MACHINE OPERATOR ZENA CASTELLON M.D. Performed By: #### C BC, CMP #### [facility] [address] Basophils/100 WBC (Bld) 0.7 % Normal . [facility] Comment on above: Performed By: #### C BC, CMP #### [address] Eosinophils (Bld) [#/Vol] 0.1 10*3/uL Normal 0.0-0.45 [facility] Comment on above: Performed By: #### C BC, CMP #### [address] Eosinophils/100 WBC (Bld) 1.5 % Normal . [facility] Comment on above: Performed By: #### C BC, CMP #### [address] Erythrocyte distribution width (RBC) [Ratio] 13.0 % Normal 12.0-14.8 [facility] Comment on above: Performed By: #### C BC, CMP #### [address] Hematocrit (Bld) [Volume fraction] 36.4 % Low 38.8-50.0 [facility] Comment on above: Performed By: #### C BC, CMP #### [address] Hemoglobin (Bld) [Mass/Vol] 12.1 g/dL Low 13.0-17.0 [facility] Comment on above: Performed By: #### C BC, CMP #### [address] Lymphocytes (Bld) [#/Vol] 1.6 10*3/uL Normal 1.00-4.8 [facility] Comment on above: Performed By: #### C BC, CMP #### [address] Lymphocytes/100 WBC (Bld) 19.3 % Normal . [facility] Comment on above: Performed By: #### C BC, CMP #### [address] MCH (RBC) [Entitic mass] 30.2 pg Normal 27.5-35.2 [facility] Comment on above: Performed By: #### C BC, CMP #### [address] MCV (RBC) [Entitic vol] 90.7 fL Normal 83.5-101 [facility] Comment on above: Performed By: #### C BC, CMP #### [address] Mean Corpuscular HGB Conc 33.3 g/dL Normal 32.5-35.6 [facility] Comment on above: Performed By: #### C BC, CMP #### [address] Monocytes (Bld) [#/Vol] 0.9 10*3/uL High 0.0-0.8 [facility] Comment on above: Performed By: #### C BC, CMP #### [address] Monocytes/100 WBC (Bld) 11.1 % Normal . [facility] Comment on above: Performed By: #### C BC, CMP #### [address] Neutrophils (Bld) [#/Vol] 5.7 10*3/uL Normal 1.8-7.7 [facility] Comment on above: Performed By: #### C BC, CMP #### [address] Neutrophils/100 WBC (Bld) 67.4 % Normal . [facility] Comment on above: Performed By: #### C BC, CMP #### [address] NRBC% 0.0 /100{WBC} Normal 0-0.5 [facility] Comment on above: Performed By: #### C BC, CMP #### [address] Platelet mean volume (Bld) [Entitic vol] 7.6 fL Normal 6.6-10.1 [facility] Comment on above: Performed By: #### C BC, CMP #### [address] Platelets (Bld) [#/Vol] 198 10*3/uL Normal 150-450 [facility] Comment on above: Performed By: #### C BC, CMP #### [address] RBC (Bld) [#/Vol] 4.01 10*6/uL Normal 3.90-5.60 [facility] Comment on above: Performed By: #### C BC, CMP #### [address] WBC (Bld) [#/Vol] 8.5 10*3/uL Normal 4.1-10.5 [facility] Comment on above: Performed By: #### C BC, CMP #### [address] Comprehensive Metabolic Pane santo 07-01-2022 Albumin [Mass/Vol] 3.7 g/dL Normal 3.5-5.7 [facility] Comment on above: Performed By: #### C BC, CMP #### [address] Albumin/Globulin [Mass ratio] 1.1 {ratio} Normal [facility] Comment on above: Performed By: #### C BC, CMP #### [address] ALP [Catalytic activity/Vol] 96 U/L Normal 34-104 [facility] Comment on above: Result Comment: PERF ORMED BY: [place] [address] PATHOLOGIST BEARING PRESS MACHINE OPERATOR ZENA CASTELLON M.D. Performed By: #### C BC, CMP #### [address] ALT [Catalytic activity/Vol] 9 U/L Normal 7-52 [facility] Comment on above: Performed By: #### C BC, CMP #### [facility] [address] [place] [id number] [place] Anion gap [Moles/Vol] 13.8 mmol/L Normal 6.0-15.0 [facility] Comment on above: Performed By: #### C BC, CMP #### [facility] [address] [place] [id number] [place] AST [Catalytic activity/Vol] 14 U/L Normal 13-39 [facility] Comment on above: Performed By: #### C BC, CMP #### [facility] [address] [place] [id number] [place] Bilirubin [Mass/Vol] 0.5 mg/dL Normal 0.3-1.0 [facility] Comment on above: Performed By: #### C BC, CMP #### [facility] [address] [place] [id number] [place] Calcium [Mass/Vol] 8.5 mg/dL Low 8.6-10.3 [facility] Comment on above: Performed By: #### C BC, CMP #### [facility] [address] [place] [id number] [place] Chloride [Moles/Vol] 100 mmol/L Normal 98-107 [facility] Comment on above: Performed By: #### C BC, CMP #### [facility] [address] [place] [id number] [place] CO2 [Moles/Vol] 24.6 mmol/L Normal 21.0-31.0 [facility] Comment on above: Performed By: #### C BC, CMP #### [facility] [address] [place] [id number] [place] Creatinine [Mass/Vol] 0.87 mg/dL Normal 0.70-1.30 [place] Comment on above: Performed By: #### C BC, CMP #### [facility] [address] [place] [id number] [place] GFR/1.73 sq M.predicted MDRD (S/P/Bld) [Vol rate/Area] mL/min/{1.73_m2} Normal [facility] Comment on above: Performed By: #### C BC, CMP #### [facility] [address] [place] [address] [place] Globulin (S) [Mass/Vol] 3.4 g/dL Normal [facility] Comment on above: Performed By: #### C BC, CMP #### [facility] [address] Glucose [Mass/Vol] 163 mg/dL High 70-100 [facility] Comment on above: Result Comment: [facility] Glucose Reference Range is dependent on time and content of last meal. Glucose of more than 200 mg/dL in a nonstressed, ambulatory subject supports the diagnosis of Diabetes Mellitus. ADA recommended reference range Performed By: #### C BC, CMP #### [facility] [address] Potassium [Moles/Vol] 4.4 mmol/L Normal 3.5-5.1 [place] Comment on above: Performed By: #### C BC, CMP #### [facility] [address] [place] [address] [place] Protein [Mass/Vol] 7.1 g/dL Normal 6.4-8.9 [facility] Comment on above: Performed By: #### C BC, CMP #### [facility] [address] [place] [address] [place] Sodium [Moles/Vol] 134 mmol/L Low 136-145 [facility] Comment on above: Performed By: #### C BC, CMP #### [facility] [address] [place] [address] [place] Urea nitrogen [Mass/Vol] 17 mg/dL Normal 7-25 [facility] Comment on above: Performed By: #### C BC, CMP #### [place] [address] [place] Creatinine [Mass/volume] in Serum or PlasmaOrdered By: Raul Quan on 07-01-2022 Creatinine [Mass/Vol] 0.87 mg/dL 0.70-1.30 [place] ECG 12 lead ECGon 07-01-2022 ECG 12 lead ECG [facility] [place] [address] Electrocardiograph Report Signed Patient: Chico Baker MR#: [id number] 284 : 1940 Acct:[id number] Age/Sex: 82 / M ADM Date: 07/01/22 Loc: Room: Type: [facility] Attending Dr: Raul Quan MD Ordering Provider: [...] By Rosanne Shabazz DO 07/03 0637 Normal [facility] Eosinophils Auto (Bld) [#/Vo l]Ordered By: Raul Quan on 07-01-2022 Eosinophils (Bld) [#/Vol] 0.1 10*3/uL 0.0-0.45 [facility] Eosinophils/100 WBC Auto (Bl d)Ordered By: Raul Quan on 07-01-2022 Eosinophils/100 WBC (Bld) 1.5 % . [facility] Erythrocyte distribution wid th Auto (RBC) [Ratio]Ordered By: Raul Quan on 07-01-2022 Erythrocyte distribution width (RBC) [Ratio] 13.0 % 12.0-14.8 [facility] Globulin Calc (S) [Mass/Vol] Ordered By: Raul Quan on 07-01-2022 Globulin (S) [Mass/Vol] 3.4 g/dL [facility] Glucose [Mass/volume] in Ser um or PlasmaOrdered By: Raul Quan on 07-01-2022 Glucose [Mass/Vol] 163 mg/dL 70-100 [facility] Comment on above: ADA recommended refe rence rangeRandom Glucose Reference Range is dependent on time and content of last meal. Glucose of more than 200 mg/dL in a nonstressed, ambulatory subject supports the diagnosis of Diabetes Mellitus. Hematocrit Auto (Bld) [Volum e fraction]Ordered By: Raul Quan on 07-01-2022 Hematocrit (Bld) [Volume fraction] 36.4 % 38.8-50.0 [facility] Hemoglobin [Mass/volume] in BloodOrdered By: Raul Quan on 07-01-2022 Hemoglobin (Bld) [Mass/Vol] 12.1 g/dL 13.0-17.0 [facility] Leukocytes [#/volume] correc shyann for nucleated erythrocytes in Blood by Automated counOrdered By: Raul Quan on 07-01-2022 WBC corrected for nucl RBC Auto (Bld) [#/Vol] 8.5 10*3/uL 4.1-10.5 [facility] Lymphocytes Auto (Bld) [#/Vo l]Ordered By: Raul Quan on 07-01-2022 Lymphocytes (Bld) [#/Vol] 1.6 10*3/uL 1.00-4.8 [facility] Lymphocytes/100 WBC Auto (Bl d)Ordered By: Raul Quan on 07-01-2022 Lymphocytes/100 WBC (Bld) 19.3 % . [facility] MCH Auto (RBC) [Entitic mass ]Ordered By: Raul Quan on 07-01-2022 MCH (RBC) [Entitic mass] 30.2 pg 27.5-35.2 [facility] MCHC Auto (RBC) [Mass/Vol]Or dered By: Raul Quan on 07-01-2022 MCHC (RBC) [Mass/Vol] 33.3 g/dL 32.5-35.6 [place] MCV Auto (RBC) [Entitic vol] Ordered By: Raul Quan on 07-01-2022 MCV (RBC) [Entitic vol] 90.7 fL 83.5-101 [facility] Monocytes Auto (Bld) [#/Vol] Ordered By: Raul Quan on 07-01-2022 Monocytes (Bld) [#/Vol] 0.9 10*3/uL 0.0-0.8 [facility] Monocytes/100 WBC Auto (Bld) Ordered By: Raul Quan on 07-01-2022 Monocytes/100 WBC (Bld) 11.1 % . [facility] Neutrophils Auto (Bld) [#/Vo l]Ordered By: Raul Quan on 07-01-2022 Neutrophils (Bld) [#/Vol] 5.7 10*3/uL 1.8-7.7 [facility] Neutrophils/100 WBC Auto (Bl d)Ordered By: Raul Quan on 07-01-2022 Neutrophils/100 WBC (Bld) 67.4 % . [facility] No Panel InformationOrdered By: Raul Quan on 07-01-2022 Estimated GFR (CKD-EPI) > 60.0 mL/Min [facility] Creatinine Clearance (Chem N/A [facility] Nucleated erythrocytes [Pres ence] in Blood by Automated countOrdered By: Raul Quan on 07-01-2022 Nucleated RBC Auto Ql (Bld) 0.0 /100{WBC} 0-0.5 [facility] Platelet mean volume Auto (B ld) [Entitic vol]Ordered By: Raul Quan on 07-01-2022 Platelet mean volume (Bld) [Entitic vol] 7.6 fL 6.6-10.1 [facility] Platelets Auto (Bld) [#/Vol] Ordered By: Raul Quan on 07-01-2022 Platelets (Bld) [#/Vol] 198 10*3/uL 150-450 [facility] Potassium [Moles/volume] in Serum or PlasmaOrdered By: Raul Quan on 07-01-2022 Potassium [Moles/Vol] 4.4 mmol/L 3.5-5.1 [place] Protein [Mass/volume] in Ser um or PlasmaOrdered By: Raul Quan on 07-01-2022 Protein [Mass/Vol] 7.1 g/dL 6.4-8.9 [facility] RBC Auto (Bld) [#/Vol]Ordere d By: Raul Quan on 07-01-2022 RBC (Bld) [#/Vol] 4.01 10*6/uL 3.90-5.60 [facility] Serum or plasma albumin/glob ulin mass ratioOrdered By: Raul Quan on 07-01-2022 Albumin/Globulin [Mass ratio] 1.1 {ratio} [facility] Serum or plasma anion gap de terminationOrdered By: Raul Quan on 07-01-2022 Anion gap [Moles/Vol] 13.8 mmol/L 6.0-15.0 [facility] Sodium [Moles/volume] in Ser um or PlasmaOrdered By: Raul Quan on 07-01-2022 Sodium [Moles/Vol] 134 mmol/L 136-145 [facility] Urea nitrogen [Mass/volume] in Serum or PlasmaOrdered By: Raul Quan on 07-01-2022 Urea nitrogen [Mass/Vol] 17 mg/dL 7-25 [facility] WBC Auto (Bld) [#/Vol]Ordere d By: Raul Quan on 07-01-2022 WBC (Bld) [#/Vol] 8.5 10*3/uL 4.1-10.5 [facility] Patient Educationon 06-25-19 Patient Education Urology [...] these instructions at home: Medicines ? Take tasr-pap-ycksega and prescription medicines only as told by [...] the blood stops without treatment. ? Take gvhl-zne-haigolv and prescription medicines only as told by your health care provider. ? Drink enough fluid to keep your urine pale yellow. This information is not intended to replace advice given to you by your health care provider. Make sure you discuss any questions you have with your health care provider. Document Revised: 10/23/2020 Document Reviewed: 10/23/2020 [employer] Patient Education ? 2022 LMN-1. Normal [facility] Screenson 06-24-2022 Screens [id number]#1.00CD:127 [facility] Screens [id number]#1.00CD:127 [facility] Urology Office/Clinic Noteon 06-24-2022 Urology Office/Clinic Note [...] Urnls Dip Stick Auto w/o Microscopy POC 30318 Urology Procedure Order 4. Penile rash (R21: Rash and other nonspecific skin eruption) Pt states rash has completely cleared up after stopping Bactrim. Denies irritation. Head of penis is not red, but is discolored. Not bothersome. D/c use of cream. Resolved Ordered: Urology Procedure Order 5. ED (erectile dysfunction) (N52.9: Male erectile dysfunction, unspecified) (more content not included)... Normal [facility] Comment on above: Result Comment: Elec tronically Signed By: Mo LEIJA, Ivelisse Schreiber\.br\Date and Time Signed: 06/24/22 10:24 EDT RAD - CT Reporton 05-15-2022 RAD - CT Report [id number]#1.00CD:127 Normal [facility] RAD - CT Reporton 05-14-2022 RAD - CT Report [id number]#1.00CD:127 Normal [facility] RAD - CT Report [id number]#1.00CD:[address] [facility] [address] angio abdomen pelvison CT angio abdomen pelvis [facility] [place] [address] [place] [address] CT Scan Report Signed Patient: Chico Baker MR#: [id number] : 1940 Acct:[id number] Age/Sex: 81 / M ADM Date: 05/11/22 Loc: CT Room: Type: [facility] Attending Dr: Raul Quan MD Copies to: [...] The graft appears to be patent. The [place] aneurysmal sac appears mildly decreased in size [...] Payan Jr., D.OSilvestre05/11/2022 3:58 PM Dictation Location: [place] [address] Transcribed By: [facility] 05/11/22 1558 Dictated By: Woody Payan Jr, DO 05/11/22 1551 Signed By: 05/11/22 1558 Normal [facility] CT angio neckon 05-11-2022 CT angio neck [facility] Main [place] [address] [place] [address] CT Scan Report Signed Patient: Chico Baker MR#: [id number] : 1940 Acct:[id number] Age/Sex: 81 / M ADM Date: 05/11/22 Loc: CT Room: Type: [facility] Attending Dr: Raul Quan MD Copies to: Raul Quan MD Ordering Provider: Raul Quan MD Date of Service: 05/11/22 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, I71.4 ([id number]) CT/CT angio head: I65.23, I71.4 CTA head [...] Raul Solo M.D.05/11/2022 5:04 PM Dictation Location: [place] [address] Transcribed By: [facility] 05/11/22 170 Dictated By: Raul Solo DO 05/11/22 1648 Signed By: 05/11/[address] [facility] Creatinine (Bld) [Mass/Vol]O rdered By: Raul Quan on 05-11-2022 Creatinine [Mass/Vol] 0.9 mg/dL 0.6-1.3 [place] Comment on above: ER/ESD physician is notified/shown all ISTAT results.Critical values may be confirmed by laboratory testing ifdeemed necessary by ER attending doctor. ISTAT XRay CREon 05-11-2022 Creatinine [Mass/Vol] 0.9 mg/dL Normal 0.6-1.3 [place] Comment on above: Result Comment: ER/E SD physician is notified/shown all ISTAT results. Critical values may be confirmed by laboratory testing if deemed necessary by ER attending doctor. Performed By: #### C BC, BMP #### [facility] [address] [place] [address] [place] ISTAT GFR ( > 60 Normal [facility] Comment on above: Result Comment: GFR estimated reference range: According to KDOQI guidelines, <60 ml/min/1.73m2 is sufficient to diagnose a patient with chronic kidney disease. PERFORMED BY: [place] [address] PATHOLOGIST BEARING [employer]ESS MACHINE OPERATOR EZNA CASTELLON M.D. Performed By: #### C BC, BMP #### [facility] [address] [place] [address] [place] ISTAT GFR (Non- Am > 60 Normal [facility] Comment on above: Performed By: #### C BC, BMP #### [facility] [address] No Panel InformationOrdered By: Raul Quan on 05-11-2022 POC Estimated GFR > 60 [facility] Comment on above: GFR estimated refere nce range: According to KDOQI guidelines, <60 ml/min/1.73m2 is sufficient to diagnose a patient with chronic kidney disease. POC Estimated GFR Non- Amer > 60 [facility] Coding Summary.on 04-20-2022 Coding Summary. CD:[id number] Gh0bWw +PGhlYWQ+ZN0WGJOwX77nkKGti I6QV0mSSD2FYKIFRWYMUM9JKV2 adER2CRvqQ1CkduCm YidazGOnXR26BBa8TRX7yDjgOJ anjH7tlFMcB2j0FrLpCG04wD01 BZgxOGMcFgE2ShWcenehwVOz P8hhMoIopEMeOff+PHRhYmxlIH nqSMJfRQdkPWCeBbUsrCkkBJ5o Nd7zBOKqIJUinCdssAZtGhHp y2jeILDmJNghEH4wgAewQ6XwkC D0SEVlb5h9Gr21fGS+PHRkIHN0 rKmqUPmdx334LpGlv8zjCXJ9 dXLqDRezAGZ5Z62tk9P0IFHjEA RyNEN5cNL0fZ7cyBxngoonL1Cx cIPlDvB2VZR7fPVzwP3dsFgs cxsanH8jUqk+H09BUN2AUNLPYD 1PDoa4E2FmRdtwaVK+QM45WKUc ML81gKHbdDAbp0vtoAw1CwJo XMOxOIL1hJklHCxtn9ZkPWUiZ2 9bxEXud1W5VOYpqXoigNDpNeYk aBL6gW3bZMcqfcpzh1tcjuxf Kwkys2libt36dN99Z84oOGfkET KtPKF2OPOpKCTuqGuqsl9yxO7v Ii8+HIjgz9czy7nzkBw2PjDy ZMNydgQlkSewETT6x2YrWs82S0 EwvUofj5UiRte7gx32dQKer4S7 gDK1IYmkDTTijJ5fWHjnAmK2 AOJiCsFjtL45lXQbCWmgFp1tjF ajlEygFO5nUGJctnviKLWhbQ2b LZWitHXexHgfRP3sRWMgicpz c570JuGbXKK1KLTqqKNdJ9HnyX 4uMkIgWPAyTRAlP3HabITyDEro Y233PGtrJbH5NJQgmqNaU6Qx WVVnmTnqXtW9t5H0Et3Ps6Ygoy pdPOR3LAsjSLQjCdIqVgSrLpJ9 X6PbQou6GUKbcZdwCF7pP4Cc YKNoczxoejmzrLK9HQNqKSEpjY 23jORjMCckBh1ha0B5b740GOZw XVOnlF60Eg7boMwyZYPhmFAC hV5ljsfkq1hswfodZcLlDVXaBC a4IRp4ISNhqAbuVoSuIBS3PsA4 HUS3lOGbgW5wuOdbiepsuD9t Oyc+E78hoC1wBZB3EFM9pqicPX CzehAhWW12FW96I6LtAscqfQCu bGU+TEDrvrIbfGfoAY6wSwWa p3tdi9HvYEnsU5OaCIOpMDubOm m4MPHzHII6rVG6aP9sWFXaMGup l9V6lCI2W4NicwAzqz1uw5id CGJxFKxfR24lrLDvf1J5NZVsmX S5YRCjcLhkVvVnfD95Ylf+PGNv bXgsk6YkGtpgg9kkj5iulDe7 DpHeFSMmvqHrbFneFUX5d7GdTq 00X11kNPurKXKhJGOzJJFbRJYc gGdkzh7jlZ5cOp4+PGNvbCB3 bWZ0kK6yNUKwUeA4NCzaY605Bg UdrYLsFtsgn9wpk4ezeFu2EhTd LXGepwEjiFrfAES3y8KfMe77 P12aFJyeGMXaCRTyRNZiHQFhhA mlqb9qjY7bJh2+ZR2rk8gjfg44 uS06dDE+YQZiIIN5tCzcKErc XIEtpJ4zGWdpPkP5PWXyDyFwgJ 72wDRaEOugOg1ztLdzbQhoNM2e LSOeefoda474KyCab5oiWDIa pOHqKXlpZBG7O51ka2M0TIGuFJ SqWTQ0uJD3iP9txDdqhmgosQZi kYfyngApkRrvDTfhFWjhQ372 IHRvcDsnPlBhdGllbnQgTmFtZT y6V3FkGki7FLHnaCibGY1geCEu ZNmkHk6mdZzgaNqvNW4mNDAf ryhpu499WxIpw9fsKTIikFGxMP gbDFY7R57qo4P5OPVsNCXtVSC5 qEH1uA3axRtdtirdpUZwmWvm riEgfSzdIVcbLYtuB442MYXyxN cxKbKpjbCmGXXxgII7LZ79KK05 iMEpa5M1pKD6O3LdJOTxvipj habxlXR2RRZoWXRybO04Da6osG nlJb7eHNXtUCM9XIYsiHTqV5Qa bJ3qSlWcDXYdBHSbD8FhqFCx ZEmlA802HUfhXtZ9ISXnwfUwF8 QgUCHpiHiiLwI8c4Q9Aw9PD1F6 HE31PH22kPTpq8A6bJZ7B0Ar CIBanriflirhvNZ2GUJdQCSezE 35Pt6zvUlhWn3mGCQtBDY8GXPx uNGmQ5HuqR1rHgAeINZpKHKm C8IpfBIdYQlfX800MRljStV9GI MdneZpL4RsRXKkwVpiZrI1a8X3 Ow6MFFl3GO37GZ20lHZej9O9 vLU7S1FbYOVhhgafwtbpkKI7DO LtJQRzmN65Dx5okRpfYg8pDHHq KXR1ADSqaFVtB1ZgcQ4kGnSj PTKlUOVhM9ObyPAuVQynO830FF cmIuX5UONquwYmF7WmJOVtyLyj BcU9h6C7Zf8VAAWxRV51ZEZ6 yXT1IC29WM53P6FxVudwoBSyoS U+PHRhYmxlIHdpZHRoPScxMDAl JoYzqYrxGZ5kVu1nAXIyDJQz gQmlbMUkHpMik4tzAEOzNQswMG 0vgZulZ2PedET8TGCpt1u2Ms52 Z23kR4CbsDZ+SXHiiNP5hPG4 kP1zCoLtFdG4TKysJ970XhLjsH UxXpvtd3iqu4ndwUe1GmV4HZGa mxZpcBlqUMC7j0JtHw45O06c IHdpZHRoPSIxNSUiIHZhbGlnbj 0jrL7zMi6+BYYnpLR0oPN1dD9b CuGmVoN3RJuxW375RmQthYUd Lnxww8slp6lrcKz2HgOnHLVhdq BcqJqhYPW7t6OgQp04W1ZpxShb v7WoIlq5mp38xJAmo9N2rTJ8 F0FwHNVacdcqhXBipXvpBM1wPH NzygwoTIPntM3rGQZnL8i8GtKo BiE4YCqzH5PfvdK4GSAraGMq VNmwOEP2N12ol8U4AEFaNLGlHS M6jZE6bL1ciWygsaqisGLxhTly qmBcjXxuIOfmDQaiA949GWGl qOfeGIMhfP1kGCNtmBGjkEhfEG 9cFHJwhlhmLx8ELG4LKSARCGMQ HSBTYTm7V1ZaQgs0GRJemRuv QE6ouSRjMOzaPx8oqJkcnHaqEO 7wIEOsstodPXYwrS8wAFZejLZn uThmXU8eXDUpedzai992IwNk VLN8QFAiaEWlS7PhwV6mOmVmAB AmSVQjY8OkwOEnJLlaV494PThh XnM4QJNkxkWjS5PjYWOcfWep KdB9i2L1Dk3qIN4qPO2tCFHjGB 20NR34wMExl9R0lCY6D1KrXFBi agzzctinaZX8QZWtMQMvvE37 fMCbRRoqXm0pk0J5a184NUVrEB GhxW69Vk8kuTuqVZKkqZEKkX7i emzig7ksgeapLtOfWTDzOIe1 EFk9EQCihAhiDpImIEA3TqD9FU N6tEJcqX4rbNfzyguxbF5cNyr+ YwweTCWfkjP5X4BeKuk5IUBi cUwvIW5exRWoFMitVr3vdPkijL mtCQ5lZYTdalwyLHClxG1tWXDn aYIqvYapDW0dWWEqekgul623 EeCzTUE8VLLzeHFoG2LqlE0gLg TqAIQpQVSkU6SrlBBoDOuiZ822 DAckViA7DILbyxFiD6DnPUNn lNzsInH8e5W5Iu7XSKyhAJ62UP 29lOKfe4H1rPY5I0QsJEOgnsdy cmjlgZF7EKRaXQFbsU25aHUk MKvjOc9vg4Z5a057TNXrSCNgvX 38Pn8owPnqDOEmaMPPyD7vasad e5oxftumVxNrHTCfVOk5HDy0 JNQytJecJwTmDUY5GkA6TAJ5rY XzaK3exCfzeniweY4iUtp+TGFi JALvk1Qtl6SbCB96FY30U5Jr PjwvdGFibGU+PHRhYmxlIHdpZH ShGJvcXKNhVjVilGfeTP6yUz5d ZDSoMKNlhWdlnSRvQbVuw0td CWNrSUlxVF0ynEzuF5NszDG7LS Roq1x0To75E87eP0MrnHJ+PGNv nEX9nXI2xA8hAdBvEuV6KPbi T081NpWwgBUmUyxsw9lar5dciK h7RkShKLEilrNiwNxwVKT5r6Pk Xt73V44vKZndCTEbJFSzKWWt RAUvwJegbb5tvP7uSj8+PGNvbC V1dAD7qP2dFiBhDxC5ETkzS256 VsJhzSUaCjlcC74uR6JpzPS+ UJCnFzu3MKOnbSmsZB2wpMBwWX pvPv6oGGH6UfTcNlNqARgwK4Np JORwehhhucstiQG6DJHoQQBf zK48Ya2mdJecAs5gQTGpDEL4BF RrtVYoD7BizO7fTjSoNMHpJXWb Q7MjsLCyQEooT906BYydYbI6 PLTmzyClT5ZjDJJyaAwxLpZ6y6 S2Ld2XjLkbnJFtAT2eTkWaQWw6 B3UpCrt6ZNAjoJmjAZ8hcUXk RIhvKq2bgItclDjiAQ2iLKMsba zxw658FoBha9piEMAwjKXjNWqs HGO5S05mt6M6CSKmYEXoLSU1 lIH6oI4ujVuctcvksKXuuLbkam JzkHcePYbmQMqfN243UCBrqHgv LuXKOoz1E6ErQcm8MNOfuVau AR4jpTAzWGcrWj3jyLsbrLqnUM 4cFAQszzomr920FvXyi2ecWEBm dRSdBDxgEFD8E31cx5N3QTSb FTEqFMV8aEU9tM1nwYqdunexzA TznKgmrjDebUpaHInpDFxbL732 VUGxgAdcYw3FAlk5I6HfKxs3 PJLvxFklWM9jhPRuEUwmRx0buK vvlKsjXY9vNTKnenecj702YiLt g4erBYPhdHJuANstNZH7K66g d1N4MZLcVFOjPJO7iUE6lM6tkM lnbjogbGVmdDsgdmVydGljYWwt GVilV400LONccQpbOaFcwASi OjwvdGQ+BN07vh42O4OxYidvPw q7TLHnJPH1oEM5eK2lKTJsEWyg z5E3zLD7V4MsbjHing4rt6sb YXBz (more content not included)... Normal [facility] Screenson 04-16-2022 Screens [id number]#1.00CD:127 Normal [facility] Screens [id number]#1.00CD:127 Normal [facility] Ambulatory Visit Summaryon 0 04-15-2022 Ambulatory Visit Summary CHICO BAKER :1940 Visit Date:04/15/2022 Ambulatory Visit Instructions Your Diagnosis Penile rash Prostatitis Microhematuria BPH with obstruction/lower urinary tract symptoms History of kidney stones Tests Performed Urnls Dip Stick Auto w/o Microscopy POC [address]11 CT Abdomen/Pelvis w/o Contrast -- Results Pending [...] Ivelisse Hassan MD Where: [facility] Patient Educationon 04-15-19 23 Patient Education Infectious [...] Follow these instructions at home: ? Take jwkt-wkf-hkwfsbu and prescription medicines only as told by [...] 05/07/2018 Docum (more content not included)... Normal [facility] URINALYSISOrdered By: Kirstie sanchez on 04-15-2022 Bacteria LM Ql (Urine sed) Trace /HPF Normal Trace/HPF [facility] UA Auto SS Bilirubin Ql (U) Negative (04/15/22 12:14 PM) Normal Negative [facility] UA Auto SS Calcium oxalate crystals LM [...] Interpretation Code Negative [facility] UA Auto SS [place].plasma/[place] .RBC (Bld) [Mass ratio] 21-30 /HPF Invalid [...] [facility] UA Auto SS Urobilinogen Qn (U) 0.1290155 {Nikki'U}/dL Normal 0.0 - 1.0 EU/dL [facility] UA Auto SS WBC Auto Ql (U) 1+ *ABN* (04/15/22 12:14 PM) Invalid Interpretation Code Negative [facility] UA Auto SS WBC LM.HPF (Urine sed) [#/Area] 0-5 /HPF Normal 0-5/HPF [facility] UA Auto SS Urinalysison 04-15-2022 Bacteria LM Ql (Urine sed) TRACE Normal Trace [facility] Comment on above: Performed By: #### 1 [id number] ####[facility] [address] [place] [address] Bilirubin Ql (U) Negative Normal Negative [facility] Comment on above: Performed By: #### 1 [id number] ####[facility] [address] [place] [address] Calcium oxalate crystals LM Ql (Urine sed) Present Normal [facility] Comment on above: Performed By: #### 1 [id number] ####[facility] [address] [place] [address] Clarity (U) CLEAR Normal Clear [facility] Comment on above: Performed By: #### 1 [id number] ####[address] [place] [address] Color (U) YELLOW Normal Yellow [facility] Comment on above: Performed By: #### 1 [id number] ####[address] [address] Epithelial cells.squamous LM.HPF (Urine sed) [#/Area] 0-2 Normal 0-2 [facility] Comment on above: Performed By: #### 1 [id number] ####[facility] [address] [place] [address] Glucose Test strip (U) [Mass/Vol] Negative Normal Negative [facility] Comment on above: Performed By: #### 1 [id number] ####[facility] [address] [place] [address] Hemoglobin Ql (U) 3+ Abnormal Negative [facility] Comment on above: Performed By: #### 1 [id number] ####[address] [address] Ketones (U) [Mass/Vol] TRACE Abnormal Negative Fi [facility] Comment on above: Performed By: #### 1 [id number] ####[address] [address] [place].plasma/[place] .RBC (Bld) [Mass ratio] 21-30 Abnormal 0-3 [facility] Comment on above: Performed By: #### 1 [id number] ####[facility] [address] [place] [address] Mucus Ql (Urine sed) TRACE Normal [facility] Comment on above: Performed By: #### 1 [id number] ####[address] [address] Nitrite Ql (U) Negative Normal Negative [facility] Comment on above: Performed By: #### 1 [id number] ####[address] [address] pH (U) 6.0 [pH] Invalid Interpretation Code 5.0-9.0 [facility] Comment on above: Performed By: #### 1 [id number] ####[address] [address] Protein (U) [Mass/Vol] Negative Normal Negative [facility] Comment on above: Performed By: #### 1 [id number] ####[address] [address] Specific gravity (U) [Rel density] >=1.030 Invalid Interpretation Code 1.005-1.030 [facility] Comment on above: Performed By: #### 1 [id number] ####[address] [address] Type of Urine collection method Random Urine Normal [facility] Comment on above: Performed By: #### 1 [id number] ####[address] [address] Urobilinogen Qn (U) 0.2 {Nikki'U}/dL Normal 0.0-1.0 [facility] Comment on above: Performed By: #### 1 [id number] ####[address] [address] WBC Auto Ql (U) 1+ Abnormal Negative [facility] Comment on above: Performed By: #### 1 [id number] ####[facility] [place] [address] WBC LM.HPF (Urine sed) [#/Area] 0-5 Normal 0-5 [facility] Comment on above: Performed By: #### 1 [id number] ####[facility] [address] [place] [address] Urology Office/Clinic Noteon 04-15-2022 Urology Office/Clinic Note [...] allergy prep. Pt having scan done at [facility] in May for aneurysm, will give [...] Medical Histo (more content not included)... Normal [facility] Comment on above: Result Comment: Elec tronically [...] Interpretation Code Negative [facility] UA Auto SS [place].plasma/[place] .RBC (Bld) [Mass ratio] 4-20 /HPF Normal [...] [facility] UA Auto SS Urobilinogen Qn (U) 0.6361635 {Nikki'U}/dL Normal 0.0 - 1.0 EU/dL [facility] UA Auto SS WBC Auto Ql (U) 1+ *ABN* (02/11/22 10:38 AM) Invalid Interpretation Code Negative [facility] UA Auto SS WBC LM.HPF (Urine sed) [#/Area] 0-5 /HPF Normal 0-5/HPF [facility] UA Auto SS Basic Metabolic Panelon 12-0 Anion gap [Moles/Vol] 10.4 mmol/L Normal 6.0-15.0 [facility] Comment on above: Performed By: #### C BC, BMP #### [facility] [address] Calcium [Mass/Vol] 8.4 mg/dL Normal 8.2-10.2 [facility] Comment on above: Performed By: #### C BC, BMP #### [facility] [address] Chloride [Moles/Vol] 101 mmol/L Normal 95-114 [facility] Comment on above: Performed By: #### C BC, BMP #### [facility] [address] CO2 [Moles/Vol] 28.2 mmol/L Normal 22.0-30.0 [facility] Comment on above: Performed By: #### C BC, BMP #### [address] Creatinine [Mass/Vol] 0.94 mg/dL Normal 0.64-1.27 [place] Comment on above: Performed By: #### C BC, BMP #### [place] [address] [place] Creatinine Clr Calc Pharmacy 57.[address] [facility] Comment on above: Result Comment: PERF ORMED BY: [place] [address] PATHOLOGIST BEARING PRESS MACHINE OPERATOR ZENA CASTELLON M.D. Performed By: #### C BC, BMP #### [address] Estimated GFR ( Jojo > [address] [facility] Comment on above: Result Comment: GFR estimated reference range: According to KDOQI guidelines, <60 ml/min/1.73m2 is sufficient to diagnose a patient with chronic kidney disease. Performed By: #### C BC, BMP #### [place] [address] [place] Estimated GFR (Non- Am > [address] [facility] Comment on above: Performed By: #### C BC, BMP #### [place] [address] [place] Glucose [Mass/Vol] 109 mg/dL High 70-100 [facility] Comment on above: Result Comment: [facility] Glucose Reference Range is dependent on time and content of last meal. Glucose of more than 200 mg/dL in a nonstressed, ambulatory subject supports the diagnosis of Diabetes Mellitus. ADA recommended reference range Performed By: #### C BC, BMP #### [facility] [address] Potassium [Moles/Vol] 4.6 mmol/L Normal 3.5-5.1 [place] Comment on above: Performed By: #### C BC, BMP #### [facility] [address] Sodium [Moles/Vol] 135 mmol/L Low 136-146 [facility] Comment on above: Performed By: #### C BC, BMP #### [facility] [address] Urea nitrogen [Mass/Vol] 11 mg/dL Normal 9-23 [facility] Comment on above: Performed By: #### C BC, BMP #### [facility] [address] [place] [address] [place] Basophils Auto (Bld) [#/Vol] Ordered By: Raul Quan on 02-05-2022 Basophils (Bld) [#/Vol] 0.1 10*3/uL 0.0-0.2 [facility] Basophils/100 WBC Auto (Bld) Ordered By: Raul Quan on 02-05-2022 Basophils/100 WBC (Bld) 0.6 % . [facility] Complete Blood Count Auto Di ffon 02-05-2022 Basophils (Bld) [#/Vol] 0.1 10*3/uL Normal 0.0-0.2 [facility] Comment on above: Result Comment: PERF ORMED BY: [place] [address] PATHOLOGIST [employer]ACHINE OPERATOR ZENA CASTELLON M.D. Performed By: #### C BC, BMP #### [facility] [address] Basophils/100 WBC (Bld) 0.6 % Normal . [facility] Comment on above: Performed By: #### C BC, BMP #### [address] Eosinophils (Bld) [#/Vol] 0.1 10*3/uL Normal 0.0-0.45 [facility] Comment on above: Performed By: #### C BC, BMP #### [address] Eosinophils/100 WBC (Bld) 0.7 % Normal . [facility] Comment on above: Performed By: #### C SEAN, BMP #### [address] Erythrocyte distribution width (RBC) [Ratio] 13.8 % Normal 12.0-14.8 [facility] Comment on above: Performed By: #### C BC, BMP #### [address] Hematocrit (Bld) [Volume fraction] 34.6 % Low 38.8-50.0 [facility] Comment on above: Performed By: #### C SEAN, BMP #### [address] Hemoglobin (Bld) [Mass/Vol] 11.4 g/dL Low 13.0-17.0 [facility] Comment on above: Performed By: #### C BC, BMP #### [address] Lymphocytes (Bld) [#/Vol] 1.5 10*3/uL Normal 1.00-4.8 [facility] Comment on above: Performed By: #### C BC, BMP #### [address] Lymphocytes/100 WBC (Bld) 14.4 % Normal . [facility] Comment on above: Performed By: #### C BC, BMP #### [address] MCH (RBC) [Entitic mass] 30.1 pg Normal 27.5-35.2 [facility] Comment on above: Performed By: #### C BC, BMP #### [facility] [address] MCV (RBC) [Entitic vol] 91.6 fL Normal 83.5-101 [facility] Comment on above: Performed By: #### C BC, BMP #### [facility] [address] Mean Corpuscular HGB Conc 32.9 g/dL Normal 32.5-35.6 [facility] Comment on above: Performed By: #### C BC, BMP #### [address] Monocytes (Bld) [#/Vol] 1.5 10*3/uL High 0.0-0.8 [facility] Comment on above: Performed By: #### C BC, BMP #### [address] Monocytes/100 WBC (Bld) 14.8 % Normal . [facility] Comment on above: Performed By: #### C BC, BMP #### [address] Neutrophils (Bld) [#/Vol] 7.1 10*3/uL Normal 1.8-7.7 [facility] Comment on above: Performed By: #### C BC, BMP #### [place] [address] [place] Neutrophils/100 WBC (Bld) 69.5 % Normal . [facility] Comment on above: Performed By: #### C BC, BMP #### [address] NRBC% 0.1 /100{WBC} Normal 0-0.5 [facility] Comment on above: Performed By: #### C BC, BMP #### [address] Platelet mean volume (Bld) [Entitic vol] 7.9 fL Normal 6.6-10.1 [facility] Comment on above: Performed By: #### C BC, BMP #### [facility] [address] [place] [address] [place] Platelets (Bld) [#/Vol] 142 10*3/uL Significant change down 150-450 [facility] Comment on above: Performed By: #### C BC, BMP #### [facility] [address] RBC (Bld) [#/Vol] 3.77 10*6/uL Low 3.90-5.60 [facility] Comment on above: Performed By: #### C BC, BMP #### [facility] [address] WBC (Bld) [#/Vol] 10.3 10*3/uL Normal 4.1-10.5 [facility] Comment on above: Performed By: #### C BC, BMP #### [facility] [address] Creatinine and Glomerular fi ltration rate.predicted panel (S/P/Bld)Ordered By: Raul Quan on 02-05-2022 Creatinine [Mass/Vol] 0.94 mg/dL 0.64-1.27 [place] Eosinophils Auto (Bld) [#/Vo l]Ordered By: Raul Quan on 02-05-2022 Eosinophils (Bld) [#/Vol] 0.1 10*3/uL 0.0-0.45 [facility] Eosinophils/100 WBC Auto (Bl d)Ordered By: Raul Quan on 02-05-2022 Eosinophils/100 WBC (Bld) 0.7 % . [facility] Erythrocyte distribution wid th Auto (RBC) [Ratio]Ordered By: Raul Quan on 02-05-2022 Erythrocyte distribution width (RBC) [Ratio] 13.8 % 12.0-14.8 [facility] Estimated glomerular filtrat ion rate (GFR) non- AmericanOrdered By: Raul Quan on 02-05-2022 GFR/1.73 sq M.predicted among non-blacks MDRD (S/P/Bld) [Vol rate/Area] > 60 mL/Min [facility] Hematocrit Auto (Bld) [Volum e fraction]Ordered By: Raul Quan on 02-05-2022 Hematocrit (Bld) [Volume fraction] 34.6 % 38.8-50.0 [facility] Hemoglobin [Mass/volume] in BloodOrdered By: Raul Quan on 02-05-2022 Hemoglobin (Bld) [Mass/Vol] 11.4 g/dL 13.0-17.0 [facility] Leukocytes [#/volume] correc shyann for nucleated erythrocytes in Blood by Automated counOrdered By: Raul Quan on 02-05-2022 WBC corrected for nucl RBC Auto (Bld) [#/Vol] 10.3 10*3/uL 4.1-10.5 [facility] Lymphocytes Auto (Bld) [#/Vo l]Ordered By: Raul Quan on 02-05-2022 Lymphocytes (Bld) [#/Vol] 1.5 10*3/uL 1.00-4.8 [facility] Lymphocytes/100 WBC Auto (Bl d)Ordered By: Raul Quan on 02-05-2022 Lymphocytes/100 WBC (Bld) 14.4 % . [facility] MCH Auto (RBC) [Entitic mass ]Ordered By: Raul Quan on 02-05-2022 MCH (RBC) [Entitic mass] 30.1 pg 27.5-35.2 [facility] MCHC Auto (RBC) [Mass/Vol]Or dered By: Raul Quan on 02-05-2022 MCHC (RBC) [Mass/Vol] 32.9 g/dL 32.5-35.6 [place] MCV Auto (RBC) [Entitic vol] Ordered By: Raul Quan on 02-05-2022 MCV (RBC) [Entitic vol] 91.6 fL 83.5-101 [facility] Monocytes Auto (Bld) [#/Vol] Ordered By: Raul Quan on 02-05-2022 Monocytes (Bld) [#/Vol] 1.5 10*3/uL 0.0-0.8 [facility] Monocytes/100 WBC Auto (Bld) Ordered By: Raul Quan on 02-05-2022 Monocytes/100 WBC (Bld) 14.8 % . [facility] Neutrophils Auto (Bld) [#/Vo l]Ordered By: Raul Quan on 02-05-2022 Neutrophils (Bld) [#/Vol] 7.1 10*3/uL 1.8-7.7 [facility] Neutrophils/100 WBC Auto (Bl d)Ordered By: Raul Quan on 02-05-2022 Neutrophils/100 WBC (Bld) 69.5 % . [facility] No Panel InformationOrdered By: Raul Quan on 02-05-2022 Estimated GFR () > 60 mL/Min [facility] Comment on above: GFR estimated refere nce range: According to KDOQI guidelines, <60 ml/min/1.73m2 is sufficient to diagnose a patient with chronic kidney disease. Pharmacy Creatinine Clearance (Chem 57.50 [facility] Nucleated erythrocytes [Pres ence] in Blood by Automated countOrdered By: Raul Quan on 02-05-2022 Nucleated RBC Auto Ql (Bld) 0.1 /100{WBC} 0-0.5 [facility] Platelet mean volume Auto (B ld) [Entitic vol]Ordered By: Raul Quan on 02-05-2022 Platelet mean volume (Bld) [Entitic vol] 7.9 fL 6.6-10.1 [facility] Platelets Auto (Bld) [#/Vol] Ordered By: Raul Quan on 02-05-2022 Platelets (Bld) [#/Vol] 142 10*3/uL 150-450 [facility] Comment on above: Delta: 198 on RBC Auto (Bld) [#/Vol]Ordere d By: Raul Quan on 02-05-2022 RBC (Bld) [#/Vol] 3.77 10*6/uL 3.90-5.60 [facility] Serum or plasma anion gap de terminationOrdered By: Raul Quan on 02-05-2022 Anion gap [Moles/Vol] 10.4 mmol/L 6.0-15.0 [facility] Serum or plasma calcium richy urement (mass/volume)Ordered By: Raul Quan on 02-05-2022 Calcium [Mass/Vol] 8.4 mg/dL 8.2-10.2 [facility] Serum or plasma chloride young surement (moles/volume)Ordered By: Raul Quan on 02-05-2022 Chloride [Moles/Vol] 101 mmol/L 95-114 [facility] Serum or plasma glucose richy urement (mass/volume)Ordered By: Raul Quan on 02-05-2022 Glucose [Mass/Vol] 109 mg/dL 70-100 [facility] Comment on above: ADA recommended refe rence rangeRandom Glucose Reference Range is dependent on time and content of last meal. Glucose of more than 200 mg/dL in a nonstressed, ambulatory subject supports the diagnosis of Diabetes Mellitus. Serum or plasma potassium me asurement (moles/volume)Ordered By: Raul Quan on 02-05-2022 Potassium [Moles/Vol] 4.6 mmol/L 3.5-5.1 [place] Serum or plasma sodium measu rement (moles/volume)Ordered By: Raul Quan on 02-05-2022 Sodium [Moles/Vol] 135 mmol/L 136-146 [facility] Serum or plasma total carbon dioxide measurement (moles/volume)Ordered By: Raul Quan on 02-05-2022 CO2 [Moles/Vol] 28.2 mmol/L 22.0-30.0 [facility] Serum or plasma urea nitroge n measurement (mass/volume)Ordered By: Raul Quan on 02-05-2022 Urea nitrogen [Mass/Vol] 11 mg/dL 9-23 [facility] WBC Auto (Bld) [#/Vol]Ordere d By: Raul Quan on 02-05-2022 WBC (Bld) [#/Vol] 10.3 10*3/uL 4.1-10.5 [facility] Antibody Identificationon Antibody Identification COLD Normal [facility] Basic Metabolic Panelon 01-08 Anion gap [Moles/Vol] 13.9 mmol/L Normal 6.0-15.0 [facility] Comment on above: Performed By: #### C BC, BMP #### [facility] [address] [place] [address] [place] Calcium [Mass/Vol] 9.0 mg/dL Normal 8.2-10.2 [facility] Comment on above: Performed By: #### C BC, BMP #### [facility] [address] [place] [address] [place] Chloride [Moles/Vol] 101 mmol/L Normal 95-114 [facility] Comment on above: Performed By: #### C BC, BMP #### [facility] [address] CO2 [Moles/Vol] 24.4 mmol/L Normal 22.0-30.0 [facility] Comment on above: Performed By: #### C BC, BMP #### [facility] [address] [place] [address] [place] Creatinine [Mass/Vol] 0.81 mg/dL Normal 0.64-1.27 [place] Comment on above: Performed By: #### C BC, BMP #### [facility] [address] [place] [address] [place] Creatinine Clr Calc Pharmacy 66.[address] [facility] Comment on above: Result Comment: PERF ORMED BY: [facility] [address] [place] [address] PATHOLOGIST BEARING PRESS MACHINE OPERATOR ZENA CASTELLON M.D. Performed By: #### C BC, BMP #### [facility] [address] Estimated GFR ( Jojo > [address] [facility] Comment on above: Result Comment: GFR estimated reference range: According to KDOQI guidelines, <60 ml/min/1.73m2 is sufficient to diagnose a patient with chronic kidney disease. Performed By: #### C BC, BMP #### [facility] [address] Estimated GFR (Non- Am > 60 Normal [facility] Comment on above: Performed By: #### C BC, BMP #### [facility] [address] Glucose [Mass/Vol] 124 mg/dL High 70-100 [facility] Comment on above: Result Comment: [facility] Glucose Reference Range is dependent on time and content of last meal. Glucose of more than 200 mg/dL in a nonstressed, ambulatory subject supports the diagnosis of Diabetes Mellitus. ADA recommended reference range Performed By: #### C BC, BMP #### [address] Potassium [Moles/Vol] 4.3 mmol/L Normal 3.5-5.1 [place] Comment on above: Performed By: #### C BC, BMP #### [address] Sodium [Moles/Vol] 135 mmol/L Low 136-146 [facility] Comment on above: Performed By: #### C SEAN, BMP #### [address] Urea nitrogen [Mass/Vol] 14 mg/dL Normal 9-23 [facility] Comment on above: Performed By: #### C BC, BMP #### [address] Blood Bank Pathologist Manny oneill 02-04-2022 Blood Bank Pathologist Review Sent to Pathology Normal [facility] Comment on above: Result Comment: PERF ORMED BY: [place] [address] PATHOLOGIST BEARING PRESS MACHINE OPERATOR ZENA CASTELLON M.D. Complete Blood Count Auto Di ffon 02-04-2022 Basophils (Bld) [#/Vol] 0.1 10*3/uL Normal 0.0-0.2 [facility] Comment on above: Result Comment: PERF ORMED BY: [address] [place] [address] PATHOLOGIST BEARING PRESS MACHINE OPERATOR ZENA CASTELLON M.D. Performed By: #### C BC #### [address] Basophils/100 WBC (Bld) 0.6 % Normal . [facility] Comment on above: Performed By: #### C BC #### [address] Eosinophils (Bld) [#/Vol] 0.1 10*3/uL Normal 0.0-0.45 [facility] Comment on above: Performed By: #### C BC #### [address] Eosinophils/100 WBC (Bld) 0.9 % Normal . [facility] Comment on above: Performed By: #### C BC #### [address] Erythrocyte distribution width (RBC) [Ratio] 13.7 % Normal 12.0-14.8 [facility] Comment on above: Performed By: #### C BC #### [address] Hematocrit (Bld) [Volume fraction] 37.5 % Low 38.8-50.0 [facility] Comment on above: Performed By: #### C BC #### [address] Hemoglobin (Bld) [Mass/Vol] 12.4 g/dL Low 13.0-17.0 [facility] Comment on above: Performed By: #### C BC #### [place] [address] [place] Lymphocytes (Bld) [#/Vol] 1.5 10*3/uL Normal 1.00-4.8 [facility] Comment on above: Performed By: #### C BC #### [address] Lymphocytes/100 WBC (Bld) 16.4 % Normal . [facility] Comment on above: Performed By: #### C BC #### [facility] [address] MCH (RBC) [Entitic mass] 30.2 pg Normal 27.5-35.2 [facility] Comment on above: Performed By: #### C BC #### [address] MCV (RBC) [Entitic vol] 91.5 fL Normal 83.5-101 [facility] Comment on above: Performed By: #### C BC #### [address] Mean Corpuscular HGB Conc 33.0 g/dL Normal 32.5-35.6 [facility] Comment on above: Performed By: #### C BC #### [address] Monocytes (Bld) [#/Vol] 1.1 10*3/uL High 0.0-0.8 [facility] Comment on above: Performed By: #### C BC #### [address] Monocytes/100 WBC (Bld) 12.0 % Normal . [facility] Comment on above: Performed By: #### C BC #### [address] Neutrophils (Bld) [#/Vol] 6.5 10*3/uL Normal 1.8-7.7 [facility] Comment on above: Performed By: #### C BC #### [address] Neutrophils/100 WBC (Bld) 70.1 % Normal . [facility] Comment on above: Performed By: #### C BC #### [address] NRBC% 0.0 /100{WBC} Normal 0-0.5 [facility] Comment on above: Performed By: #### C BC #### [address] Platelet mean volume (Bld) [Entitic vol] 8.5 fL Normal 6.6-10.1 [facility] Comment on above: Performed By: #### C BC #### [address] Platelets (Bld) [#/Vol] 198 10*3/uL Normal 150-450 [facility] Comment on above: Performed By: #### C BC #### [address] RBC (Bld) [#/Vol] 4.10 10*6/uL Normal 3.90-5.60 [facility] Comment on above: Performed By: #### C BC #### [address] WBC (Bld) [#/Vol] 9.3 10*3/uL Normal 4.1-10.5 [facility] Comment on above: Performed By: #### C BC #### [address] Direct [place] 02-04-2022 Polyspecific AHG Negative Normal [facility] [place] 02-04-2022 L ------ Specimen: [id number] Received: 02/04/22 Status: JUSTINA Henley Num: [id number] Spec Type: Impression Subm Dr: Rocio Mac DO Tissues: PATHDEVINK Procedures: PATHREVIEW Age/ Patient Sex Location Account Attending Physician Chico Baker 81/M 4N [id number] Raul Quan MD SPEC NUM: [id number] RECD: 02/04/22 STATUS: JUSTINA HENLEY NUM: [id number] SHYANN: 02/04/22 DR: Rocio Mac DO ENTERED: 02/04/[address]: LUMA TYPE: Impression DEPT: PA ORDERED: PATHREVIEW ORDERED: PATHREVIEW Blood Bank Results Date Time Test Result Flag (u) Normal Range 02/04/22824 Ab Screen POSITIVE AB ID 02/04/22824 Cold Ab Pathologist Review A cold antibody with no apparent specificity was detectable in the serum at 22C and colder. Due to the low temperature agglutination characteristics, these antibodies are considered clinically insignificant. Specimen: [id number] Received: 02/04/22 Status: JUSTINA Henley Num: [id number] Spec Type: Impression Subm Dr: Rocio Mac DO Tissues: PATHBBK Procedures: PATHREVIEW Patient: Chico Baker [id number] (Continued) Signed (signature on file) Judah Alvarado MD 02/04/22 [id number] Normal [facility] Type and Screenon 02-04-2022 ABO and Rh group Nom (Bld) Blood group A Rh(D) positive Normal [facility] Comment on above: Result Comment: PERF ORMED BY: [facility] [address] [place] [address] PATHOLOGIST BEARING PRESS MACHINE OPERATOR ZENA CASTELLON M.D. Covid-19 PCR ([facility]on 01-07 SARS-CoV-2 (COVID-19) RNA JESSIE+probe Ql (Unsp spec) Not detected Normal NOT DETECTED [facility] Comment on above: Result Comment: This test is not yet approved or cleared by the [place] FDA. When there are no FDA-approved or cleared tests available, and other criteria are met, FDA can make tests available under an emergency access mechanism called an Emergency Use Authorization (EUA). The EUA for this test is supported by the [place] of Health and Human Service's (HHS's) declaration [...] consistent with SARS-CoV-2. Performed By: #### C [facility] #### [facility] [address] [place] [address] Dr. Jodi Oglesby US carotid doppler BIon - US carotid doppler BI [facility] [place] [address] [place] [address] Ultrasound Report Signed Patient: Chico Baker MR#: [id number] : 1940 Acct:[id number] Age/Sex: 81 / M ADM Date: 01/20/22 Loc: [facility] Room: Type: [facility] Attending Dr: Tamar Perea POST HOLE DIGGING MACHINE OPERATOR-C Ordering Provider: Tamar Perea APRN Date of [...] Raul Quan M.D.01/20/2022 11:32 AM Dictation Location: [facility] Tech: Aby Mueller Transcribed By: PWS 01/20/221131 Dictated By: Raul Quan MD 01/20/221129 Signed By: 01/20/[address] [facility] CBC AUTO DIFFon 12-08-2021 BASO # 0.1 103/ul Normal 0.0-0.1 [facility] Comment on above: Performed By: #### D ATA1C #### [facility] [address] [place] [address] Dr. Jodi Oglesby Basophils/100 WBC (Bld) 0.5 % Normal 0.2-2.0 [facility] Comment on above: Performed By: #### D ATA1C #### [facility] [address] [address] [address] Jodi Oglesby EO # 0.1 103/ul Normal 0.0-0.7 [facility] Comment on above: Performed By: #### D ATA1C #### [facility] [address] [address] [address] Jodi Oglesby Eosinophils/100 WBC (Bld) 1.4 % Normal 0.9-7.0 [facility] Comment on above: Performed By: #### D ATA1C #### [facility] [address] [place] [address] Dr. Jodi Oglesby Erythrocyte distribution width (RBC) [Ratio] 13.0 % Normal 11.0-15.0 [facility] Comment on above: Performed By: #### Chavez ATA1C #### [facility] [address] [place] [address] Dr. Jodi Oglesby Hematocrit (Bld) [Volume fraction] 36.1 % Critically low 42.0-54.0 [facility] Comment on above: Performed By: #### D ATA1C #### [facility] [address] [place] [address] Dr. Jodi Oglesby Hemoglobin (Bld) [Mass/Vol] 11.2 g/dL Critically low 14.0-18.0 [facility] Comment on above: Performed By: #### D ATA1C #### [facility] [address] [place] [address] Dr. Jodi Oglesby IG # 0.04 10e3/ul Critically high 0.00-0.03 [facility] Comment on above: Performed By: #### D ATA1C #### [facility] [address] [place] [address] Dr. Jodi Oglesby IG % 0.4 % Normal 0.0-0.5 [facility] Comment on above: Performed By: #### D ATA1C #### [facility] [address] [address] [address] Jodi Oglesby LYMPH # 1.8 103/ul Normal 1.2-3.8 [facility] Comment on above: Performed By: #### D ATA1C #### [facility] [address] [place] [address] Dr. Jodi Oglesby Lymphocytes/100 WBC (Bld) 17.2 % Critically low 20.5-60.0 [facility] Comment on above: Performed By: #### D ATA1C #### [facility] [address] [place] [address] Dr. Jodi Oglesby MANUAL DIFF REQ NO Normal [facility] Comment on above: Performed By: #### D ATA1C #### [facility] [address] [place] [address] Dr. Jodi Oglesby MCH (RBC) [Entitic mass] 30.4 pg Normal 25.9-34.0 [facility] Comment on above: Performed By: #### D ATA1C #### [facility] [address] [place] [address] Dr. Jodi Oglesby MCHC (RBC) [Mass/Vol] 31.0 g/dL Normal 29.9-35.2 [facility] Comment on above: Performed By: #### D ATA1C #### [facility] [address] [place] [address] Dr. Jodi Oglesby MCV (RBC) [Entitic vol] 98.1 fL Critically high 80.0-94.0 [facility] Comment on above: Performed By: #### D ATA1C #### [facility] [address] [place] [address] Dr. Jodi Oglesby MONO # 1.0 103/ul Critically high 0.3-0.8 [facility] Comment on above: Performed By: #### D ATA1C #### [facility] [address] [place] [address] Dr. Jodi Oglesby Monocytes/100 WBC (Bld) 9.8 % Normal 1.7-12.0 [facility] Comment on above: Performed By: #### D ATA1C #### [facility] [address] [address] [address] Jodi Oglesby NEUT # 7.3 103/ul Critically high 1.4-6.5 [facility] Comment on above: Performed By: #### D ATA1C #### [facility] [address] [place] [address] Dr. Jodi Oglesby Neutrophils/100 WBC (Bld) 70.7 % Normal 43.0-75.0 [facility] Comment on above: Performed By: #### D ATA1C #### [facility] [address] [place] [address] Dr. Jodi Oglesby Platelet mean volume (Bld) [Entitic vol] 9.1 fL Critically low 9.5-13.5 [facility] Comment on above: Performed By: #### D ATA1C #### [facility] [address] [place] [address] Dr. Jodi Oglesby PLT 214 103/ul Normal 150-450 [facility] Comment on above: Performed By: #### D ATA1C #### [facility] [address] [place] [address] Dr. Jodi Oglesby RBC 3.68 106/ul Critically low 4.70-6.10 [facility] Comment on above: Performed By: #### D ATA1C #### [facility] [address] [place] [address] Dr. Jodi Oglesby WBC 10.3 103/ul Normal 4.0-11.0 [facility] Comment on above: Performed By: #### D ATA1C #### [facility] [address] [place] [address] Dr. Jodi Oglesby PROF CHEM 8 (BAS METB)on Anion gap [Moles/Vol] 9.7 mmol/L Normal [facility] Comment on above: Performed By: #### C BC #### [facility] [address] [place] [address] Dr. Jodi Oglesby Calcium [Mass/Vol] 8.9 mg/dL Normal 8.5-10.1 [facility] Comment on above: Performed By: #### C BC #### [facility] [address] [address] [address] Jodi Oglesby Chloride [Moles/Vol] 102 mmol/L Normal 98-107 [facility] Comment on above: Performed By: #### C BC #### [facility] [address] [place] [address] Dr. Jodi Oglesby CO2 [Moles/Vol] 31.0 mmol/L Normal 21.0-32.0 [facility] Comment on above: Performed By: #### C BC #### [facility] [address] [place] [address] Dr. Jodi Oglesby Creatinine [Mass/Vol] 0.85 mg/dL Normal 0.70-1.30 [facility] Comment on above: Performed By: #### C BC #### [facility] [address] [place] [address] Dr. Jodi Oglesby EGFR-AF CENTRAL AFRICAN >60 Normal >=60 [facility] Comment on above: Performed By: #### C BC #### [facility] [address] [place] [address] Dr. Jodi Oglesby EGFR-NON AF CENTRAL AFRICAN >60 Normal >=60 [facility] Comment on above: Performed By: #### C BC #### [facility] [address] [place] [address] Dr. Jodi Oglesby Glucose [Mass/Vol] 106 mg/dL Normal 74-106 [facility] Comment on above: Performed By: #### C BC #### [facility] [address] [place] [address] Dr. Jodi Oglesby Potassium [Moles/Vol] 4.7 mmol/L Normal 3.5-5.1 [facility] Comment on above: Performed By: #### C BC #### [facility] [address] [place] [address] Dr. Jodi Oglesby Sodium [Moles/Vol] 138 mmol/L Normal 136-145 [facility] Comment on above: Performed By: #### C BC #### [facility] [address] [place] [address] Dr. Jodi Oglesby Urea nitrogen [Mass/Vol] 14.0 mg/dL Normal 7.0-18.0 [facility] Comment on above: Performed By: #### C BC #### [facility] [address] [place], [place] [address] Dr. Jodi Oglesby Urea nitrogen/Creatinine [Mass ratio] 16.5 mg/mg Normal [facility] Comment on above: Performed By: #### C BC #### [facility] [address] [place], [place] [address] Dr. Jodi Oglesby XR CHEST 2 Von [...] ROCIO RICARDO Date: 2021-12-08 16:20 Normal [facility] Covid-19 PCR ([facility])on 11-07 SARS-CoV-2 (COVID-19) RNA JESSIE+probe Ql (Unsp spec) Not detected Normal NOT DETECTED [facility] Comment on above: Result Comment: This test is not yet approved or cleared by the [place] FDA. When there are no FDA-approved or cleared tests available, and other criteria are met, FDA can make tests available under an emergency access mechanism called an Emergency Use Authorization (EUA). The EUA for this test is supported by the [place] of Health and Human Service's (HHS's) declaration [...] SARS-CoV-2. Performed By: #### C VDTBH #### [facility] [address] [place] [address] Dr. Jodi Oglesby CBC AUTO DIFFon 11-11-2021 BASO # 0.1 103/ul Normal 0.0-0.1 [facility] Comment on above: Performed By: #### C BC #### [facility] [address] [place] [address] Dr. Jodi Oglesby Basophils/100 WBC (Bld) 0.5 % Normal 0.2-2.0 [facility] Comment on above: Performed By: #### C BC #### [facility] [address] [place] [address] Dr. Jodi Oglesby EO # 0.2 103/ul Normal 0.0-0.7 [facility] Comment on above: Performed By: #### C BC #### [facility] [address] [place] [address] Dr. Jodi Oglesby Eosinophils/100 WBC (Bld) 1.9 % Normal 0.9-7.0 [facility] Comment on above: Performed By: #### C BC #### [facility] Laboratory [address] [place] [address] Dr. Jodi Oglesby Erythrocyte distribution width (RBC) [Ratio] 13.6 % Normal 11.0-15.0 [facility] Comment on above: Performed By: #### C BC #### [facility] [address] [place] [address] Dr. Jodi Oglesby Hematocrit (Bld) [Volume fraction] 28.6 % Critically low 42.0-54.0 [facility] Comment on above: Performed By: #### C BC #### [facility] [address] [place] [address] Dr. Jodi Oglesby Hemoglobin (Bld) [Mass/Vol] 9.4 g/dL Critically low 14.0-18.0 [facility] Comment on above: Performed By: #### C BC #### [facility] [address] [place] [address] Dr. Jodi Oglesby IG # 0.08 10e3/ul Critically high 0.00-0.03 [facility] Comment on above: Performed By: #### C BC #### [facility] [address] [place] [address] Dr. Jodi Oglesby IG % 0.8 % Critically high 0.0-0.5 [facility] Comment on above: Performed By: #### C BC #### [facility] [address] [place] [address] Dr. Jodi Oglesby LYMPH # 1.3 103/ul Normal 1.2-3.8 [facility] Comment on above: Performed By: #### C BC #### [facility] [address] [place] [address] Dr. Jodi Oglesby Lymphocytes/100 WBC (Bld) 13.0 % Critically low 20.5-60.0 [facility] Comment on above: Performed By: #### C BC #### [facility] [address] [place] [address] Dr. Jodi Oglesby MANUAL DIFF REQ NO Normal [facility] Comment on above: Performed By: #### C BC #### [facility] [address] [place] [address] Dr. Jodi Oglesby MCH (RBC) [Entitic mass] 31.5 pg Normal 25.9-34.0 [facility] Comment on above: Performed By: #### C BC #### [facility] [address] [place] [address] Dr. Jodi Oglesby MCHC (RBC) [Mass/Vol] 32.9 g/dL Normal 29.9-35.2 [facility] Comment on above: Performed By: #### C BC #### [facility] [address] [place] [address] Dr. Jodi Oglesby MCV (RBC) [Entitic vol] 96.0 fL Critically high 80.0-94.0 [facility] Comment on above: Performed By: #### C BC #### [facility] [address] [place] [address] Dr. Jodi Oglesby MONO # 1.1 103/ul Critically high 0.3-0.8 [facility] Comment on above: Performed By: #### C BC #### [facility] [address] [place] [address] Dr. Jodi Oglesby Monocytes/100 WBC (Bld) 10.7 % Normal 1.7-12.0 [facility] Comment on above: Performed By: #### C BC #### [facility] [address] [place] [address] Dr. Jodi Oglesby NEUT # 7.4 103/ul Critically high 1.4-6.5 [facility] Comment on above: Performed By: #### C BC #### [facility] [address] [place] [address] Dr. Jodi Oglesby Neutrophils/100 WBC (Bld) 73.1 % Normal 43.0-75.0 [facility] Comment on above: Performed By: #### C BC #### [facility] [address] [place] [address] Dr. Jodi Oglesby Platelet mean volume (Bld) [Entitic vol] 9.3 fL Critically low 9.5-13.5 [facility] Comment on above: Performed By: #### C BC #### [facility] [address] [place] [address] Dr. Jodi Oglesby PLT 288 103/ul Normal 150-450 [facility] Comment on above: Performed By: #### C BC #### [facility] [address] [place] [address] Dr. Jodi Oglesby RBC 2.98 106/ul Critically low 4.70-6.10 [facility] Comment on above: Performed By: #### C BC #### [facility] [address] [place] [address] Dr. Jodi Oglesby WBC 10.1 103/ul Normal 4.0-11.0 [facility] Comment on above: Performed By: #### C BC #### [facility] [address] [place] [address] ABD/PELVIS WO CONon [...] TAYO CASTILLO Date: 2021-11-11 03:10 Normal [facility] Covid-19 PCR (CVDTB)on SARS-CoV-2 (COVID-19) RNA JESSIE+probe Ql (Unsp spec) Not detected Normal NOT DETECTED [facility] Comment on above: Result Comment: When diagnostic [...] for this test is supported by the [employer] of Health and Human Service's declaration that [...] used). Performed By: #### C BC #### [facility] [address] [place], [place] [address] Dr. Jodi Oglesby OCC BLD IMMUNO SCREENon OCCULT BLOOD Negative Normal NEGATIVE [facility] Comment on above: Performed By: #### D ATA1C #### [facility] [address] [place], [place] [address] Dr. Jodi Oglesby PROF 14(COMP METB)on 022 Albumin [Mass/Vol] 3.0 g/dL Critically low 3.4-5.0 [facility] Comment on above: Performed By: #### C MP #### [facility] [address] [place] [address] Dr. Jodi Oglesby Albumin/Globulin [Mass ratio] 0.8 {ratio} Normal [facility] Comment on above: Performed By: #### C MP #### [facility] [address] [place] [address] [address] Jodi Oglesby ALP [Catalytic activity/Vol] 126 U/L Critically high 46-116 [facility] Comment on above: Performed By: #### C MP #### [facility] [address] [place] [address] Dr. Jodi Oglesby ALT [Catalytic activity/Vol] 22 U/L Normal 16-63 [facility] Comment on above: Performed By: #### C MP #### [facility] [address] [place] [address] Dr. Jodi Oglesby Anion gap [Moles/Vol] 16.7 mmol/L Normal [facility] Comment on above: Performed By: #### C MP #### [facility] [address] [place] [address] Dr. Jodi Oglesby AST [Catalytic activity/Vol] 23 U/L Normal 15-37 [facility] Comment on above: Performed By: #### C MP #### [facility] [address] [place] [address] Dr. Jodi Oglesby Bilirubin [Mass/Vol] 0.6 mg/dL Normal 0.2-1.0 [facility] Comment on above: Performed By: #### C MP #### [facility] [address] [place] [address] Dr. Jodi Oglesby Calcium [Mass/Vol] 8.5 mg/dL Normal 8.5-10.1 [facility] Comment on above: Performed By: #### C MP #### [facility] [address] [place] [address] Dr. Jodi Oglesby Chloride [Moles/Vol] 99 mmol/L Normal 98-107 [facility] Comment on above: Performed By: #### C MP #### [facility] [address] [place] [address] Dr. Jodi Oglesby CO2 [Moles/Vol] 27.4 mmol/L Normal 21.0-32.0 [facility] Comment on above: Performed By: #### C MP #### [facility] [address] [place] [address] Dr. Jodi Oglesby Creatinine [Mass/Vol] 0.80 mg/dL Normal 0.70-1.30 [facility] Comment on above: Performed By: #### C MP #### [facility] [address] [place] [address] Dr. Jodi Oglesby EGFR-AF CENTRAL AFRICAN >60 Normal >=60 [facility] Comment on above: Performed By: #### C MP #### [facility] [address] [place] [address] Dr. Jodi Oglesby EGFR-NON AF CENTRAL AFRICAN >60 Normal >=60 [facility] Comment on above: Performed By: #### C MP #### [facility] [address] [place] [address] Dr. Jodi Oglesby Globulin (S) [Mass/Vol] 3.9 g/dL Normal [facility] Comment on above: Performed By: #### C MP #### [facility] [address] [place] [address] Dr. Jodi Oglesby Glucose [Mass/Vol] 116 mg/dL Critically high 74-106 T [facility] Comment on above: Performed By: #### C MP #### [facility] [address] [place] [address] Dr. Jodi Oglesby Potassium [Moles/Vol] 4.1 mmol/L Normal 3.5-5.1 [facility] Comment on above: Performed By: #### C MP #### [facility] [address] [place] [address] Dr. Jodi Oglesby Protein [Mass/Vol] 6.9 g/dL Normal 6.4-8.2 [facility] Comment on above: Performed By: #### C MP #### [facility] [address] [place] [address] Dr. Jodi Oglesby Sodium [Moles/Vol] 129 mmol/L Critically low 136-145 Th [facility] Comment on above: Performed By: #### C MP #### [facility] [address] [place] [address] Dr. Jodi Oglesby Urea nitrogen [Mass/Vol] 15.0 mg/dL Normal 7.0-18.0 [facility] Comment on above: Performed By: #### C MP #### [facility] [address] [place] [address] Dr. Jodi Oglesby Urea nitrogen/Creatinine [Mass ratio] 18.8 mg/mg Normal [facility] Comment on above: Performed By: #### C MP #### [facility] [address] [place] [address] Dr. Jodi Oglesby PROTIMEon 11-11-2021 INR Coag (PPP) [Relative time] 1.01 {INR} Normal [facility] Comment on above: Performed By: #### P TT, PT #### [facility] [address] [place] [address] Dr. Jodi Oglesby INR GUIDELINES SEE BELOW Normal [facility] Comment on above: Result Comment: ESHA RED INR: 2.0 - 3.0 CONDITIONS NOT LISTED BELOW 2.5 - 3.5 FOR PROSTHETIC HEART VALVE REPLACEMENT 2.5 - 3.5 RECURRENT THROMBOSIS Performed By: #### P TT, PT #### [facility] [address] [place] [address] Dr. Jodi Oglesby PT Coag (PPP) [Time] 10.9 s Normal 9.0-11.6 [facility] Comment on above: Performed By: #### P TT, PT #### [facility] [address] [place] [address] Dr. Jodi Oglesby PTTon 11-11-2021 aPTT Coag (Bld) [Time] 25.4 s Normal 22.3-36.2 Th [facility] Comment on above: Performed By: #### P TT, PT #### [facility] [address] [place] [address] Dr. Jodi Oglesby CBC AUTO DIFFon 10-26-2021 BASO # 0.0 103/ul Normal 0.0-0.1 [facility] Comment on above: Performed By: #### D ATA1C #### [facility] [address] [place] [address] [address] Jodi Oglesby Basophils/100 WBC (Bld) 0.3 % Normal 0.2-2.0 [facility] Comment on above: Performed By: #### D ATA1C #### [facility] [address] [place] [address] [address] Jodi Oglesby EO # 0.1 103/ul Normal 0.0-0.7 [facility] Comment on above: Performed By: #### D ATA1C #### [facility] [address] [place] [address] Dr. Jodi Oglesby Eosinophils/100 WBC (Bld) 0.5 % Critically low 0.9-7.0 [facility] Comment on above: Performed By: #### D ATA1C #### [facility] [address] [place] [address] Dr. Jodi Oglesby Erythrocyte distribution width (RBC) [Ratio] 12.4 % Normal 11.0-15.0 [facility] Comment on above: Performed By: #### D ATA1C #### [facility] [address] [place] [address] Dr. Jodi Oglesby Hematocrit (Bld) [Volume fraction] 39.5 % Critically low 42.0-54.0 [facility] Comment on above: Performed By: #### D ATA1C #### [facility] [address] [place] [address] Dr. Jodi Oglesby Hemoglobin (Bld) [Mass/Vol] 12.8 g/dL Critically low 14.0-18.0 [facility] Comment on above: Performed By: #### D ATA1C #### [facility] [address] [place] [address] Dr. Jodi Oglesby IG # 0.07 10e3/ul Critically high 0.00-0.03 [facility] Comment on above: Performed By: #### D ATA1C #### [facility] [address] [place] [address] [address] Jodi Oglesby IG % 0.5 % Normal 0.0-0.5 [facility] Comment on above: Performed By: #### D ATA1C #### [facility] [address] [place] [address] [address] Jodi Oglesby LYMPH # 0.9 103/ul Critically low 1.2-3.8 [facility] Comment on above: Performed By: #### D ATA1C #### [facility] [address] [place] [address] [address] Jodi Oglesby Lymphocytes/100 WBC (Bld) 6.3 % Critically low 20.5-60.0 [facility] Comment on above: Performed By: #### D ATA1C #### [facility] [address] [place] [address] Dr. Jodi Oglesby MANUAL DIFF REQ NO Normal [facility] Comment on above: Performed By: #### D ATA1C #### [facility] [address] [address] [address] Jodi Oglesby MCH (RBC) [Entitic mass] 30.8 pg Normal 25.9-34.0 [facility] Comment on above: Performed By: #### D ATA1C #### [facility] [address] [place] [address] Dr. Jodi Oglesby MCHC (RBC) [Mass/Vol] 32.4 g/dL Normal 29.9-35.2 [facility] Comment on above: Performed By: #### D ATA1C #### [facility] [address] [place] [address] Dr. Jodi Oglesby MCV (RBC) [Entitic vol] 95.2 fL Critically high 80.0-94.0 [facility] Comment on above: Performed By: #### D ATA1C #### [facility] [address] [place] [address] Dr. Jodi Oglesby MONO # 0.9 103/ul Critically high 0.3-0.8 [facility] Comment on above: Performed By: #### D ATA1C #### [facility] [address] [place], [place] [id number] Dr. Jodi Oglesby Monocytes/100 WBC (Bld) 6.2 % Normal 1.7-12.0 [facility] Comment on above: Performed By: #### D ATA1C #### [facility] [address] [place] [address] Dr. Jodi Oglesby NEUT # 12.8 103/ul Critically high 1.4-6.5 [facility] Comment on above: Performed By: #### D ATA1C #### [facility] [address] [place] [address] Dr. Jodi Oglesby Neutrophils/100 WBC (Bld) 86.2 % Critically high 43.0-75.0 [facility] Comment on above: Performed By: #### D ATA1C #### [facility] [address] [place] [address] Dr. Jodi Oglesby Platelet mean volume (Bld) [Entitic vol] 9.4 fL Critically low 9.5-13.5 [facility] Comment on above: Performed By: #### D ATA1C #### [facility] [address] [place] [address] Dr. Jodi Oglesby PLT 169 103/ul Normal 150-450 [facility] Comment on above: Performed By: #### D ATA1C #### [facility] [address] [place] [address] Dr. Jodi Oglesby RBC 4.15 106/ul Critically low 4.70-6.10 [facility] Comment on above: Performed By: #### D ATA1C #### [facility] [address] [place] [address] Dr. Jodi Oglesby WBC 14.8 103/ul Critically high 4.0-11.0 [facility] Comment on above: Performed By: #### D ATA1C #### [facility] [address] [place], [place] [id number] Dr. Jodi Oglesby CT CHEST WO CONon [...] NICOLE SIMMS Date: 2021-10-26 17:38 Normal [facility] Covid-19 PCR ([facility])on 10-07 SARS-CoV-2 (COVID-19) RNA JESSIE+probe Ql (Unsp spec) Not detected Normal NOT DETECTED [facility] Comment on above: Result Comment: When diagnostic [...] for this test is supported by the [place] of Health and Human Service's declaration that [...] used). Performed By: #### D ATA1C #### [facility] [address] [place] [address] Dr. Jodi Oglesby PROF CHEM 8 (BAS METB)on Anion gap [Moles/Vol] 11.7 mmol/L Normal Th [facility] Comment on above: Performed By: #### C BC #### [facility] [address] [place] [address] Dr. Jodi Oglesby Calcium [Mass/Vol] 9.2 mg/dL Normal 8.5-10.1 [facility] Comment on above: Performed By: #### C BC #### [facility] [address] [place] [address] Dr. Jodi Oglesby Chloride [Moles/Vol] 101 mmol/L Normal 98-107 [facility] Comment on above: Performed By: #### C BC #### [facility] [address] [place] [address] Dr. Jodi Oglesby CO2 [Moles/Vol] 27.6 mmol/L Normal 21.0-32.0 [facility] Comment on above: Performed By: #### C BC #### [facility] [address] [place] [address] Dr. Jodi Oglesby Creatinine [Mass/Vol] 0.98 mg/dL Normal 0.70-1.30 [facility] Comment on above: Performed By: #### C BC #### [facility] [address] [place] [address] Dr. Jodi Oglesby EGFR-AF CENTRAL AFRICAN >60 Normal >=60 [facility] Comment on above: Performed By: #### C BC #### [facility] [address] [place] [address] Dr. Jodi Oglesby EGFR-NON AF CENTRAL AFRICAN >60 Normal >=60 [facility] Comment on above: Performed By: #### C BC #### [facility] [address] [place] [address] Dr. Jodi Oglesby Glucose [Mass/Vol] 119 mg/dL Critically high 74-106 T [facility] Comment on above: Performed By: #### C BC #### [facility] [address] [place] [address] [address] Jodi Oglesby Potassium [Moles/Vol] 4.3 mmol/L Normal 3.5-5.1 [facility] Comment on above: Performed By: #### C BC #### [facility] [address] [place] [address] [address] Jodi Oglesby Sodium [Moles/Vol] 136 mmol/L Normal 136-145 [facility] Comment on above: Performed By: #### C BC #### [facility] [address] [place] [address] Dr. Jodi Oglesby Urea nitrogen [Mass/Vol] 15.0 mg/dL Normal 7.0-18.0 [facility] Comment on above: Performed By: #### C BC #### [facility] [address] [place] [address] Dr. Jodi Oglesby Urea nitrogen/Creatinine [Mass ratio] 15.3 mg/mg Normal [facility] Comment on above: Performed By: #### C BC #### [facility] [address] [place] [address] Dr. Jodi Oglesby XR CLAVICLE RTon 10-26-2021 [...] by: ABY ALDANA Date: 2021-10-26 15:37 Normal [facility] XR ELBOW RT MIN 3 VIEWSon XR [...] DEL CHAKRABORTY Date: 2021-10-26 17:23 Normal [facility] XR HIP RT 2 3V W PELVISon [...] by: CHARLES ALEJANDRA Date: 2021-10-26 15:40 Normal [facility] CARDIAC STRESS/REST INJE CTIONon 10-21-2021 [facility] CARDIAC STRESS/REST INJECTION Patient Name: CHICO BAKER STUDY: MYOCARDIAL PERFUSION STRESS TEST WITH LEXISCAN Performing facility: [facility], [address] [place] [address], [address], [address] Provider: Adilene Harrington MD, [facility] PCP: Dr. Jori Dunham Supervising provider: Adilene Harrington MD, [facility] INDICATION: AAA Pre-operative risk assessment for AAA scheduled at [facility] on D. HISTORY: Gender: M; Age: 81 y/o ; Height: 0 cm; Weight: 0 kg. HTN; Carotid disease PAD AAA Denies smoking. COMPARISON: Previous nuclear testing completed [id number] at [facility]. Previous echo testing completed on 2020 at [facility]. ACCESSION NUMBER(S): [id number]; [id number]; [id number] ORDERING CLINICIAN: JUDAH HARRINGTON TECHNIQUE: ONE DAY [...] Electronically signed by: ALL HUDSON MD Normal [facility] No Panel Informationon 10-21 Normal -[facility] [address] Work Phone: COVID-19 Positive/NegativeOr dered By: Raul Quan on 10-13-2021 SARS-CoV-2 (COVID-19) N gene JESSIE+probe Ql (Resp) Negative Negative [facility] Comment on above: Testing for SARS-CoV -2 by RT-PCR This test was developed and its performance characteristics determined by [employer] and validated at the [facility]. This test has not been FDA [...] 10-06-2021 Basophils (Bld) [#/Vol] 0.0 10*3/uL 0.0-0.2 [facility] Basophils/100 WBC Auto (Bld) Ordered By: Raul Quan on 10-06-2021 Basophils/100 WBC (Bld) 0.7 % . [facility] Blood hemoglobin measurement (mass/volume)Ordered By: Raul Quan on 10-06-2021 Hemoglobin (Bld) [Mass/Vol] 13.1 g/dL 13.0-17.0 [facility] Blood leukocytes automated c ount (number/volume)Ordered By: Raul Quan on 10-06-2021 WBC (Bld) [#/Vol] 5.2 10*3/uL 4.5-11.0 [facility] Creatinine and Glomerular fi ltration rate.predicted panel (S/P/Bld)Ordered By: Raul Quan on 10-06-2021 Creatinine [Mass/Vol] 0.98 mg/dL 0.64-1.27 [place] Eosinophils Auto (Bld) [#/Vo l]Ordered By: Raul Quan on 10-06-2021 Eosinophils (Bld) [#/Vol] 0.1 10*3/uL 0.0-0.45 [facility] Eosinophils/100 WBC Auto (Bl d)Ordered By: Raul Quan on 08-01-2022 Eosinophils/100 WBC (Bld) 1.3 % . [facility] Erythrocyte distribution wid th Auto (RBC) [Ratio]Ordered By: Raul Quan on 10-06-2021 Erythrocyte distribution width (RBC) [Ratio] 13.3 % 12.0-14.8 [facility] Estimated glomerular filtrat ion rate (GFR) non- AmericanOrdered By: Raul Quan on 10-06-2021 GFR/1.73 sq M.predicted among non-blacks MDRD (S/P/Bld) [Vol rate/Area] > 60 mL/Min [facility] Hematocrit Auto (Bld) [Volum e fraction]Ordered By: Raul Quan on 10-06-2021 Hematocrit (Bld) [Volume fraction] 40.4 % 38.8-50.0 [facility] Laboratory - Hematology and Cell countsOrdered By: Raul Quan on 10-06-2021 Nucleated RBC/100 WBC (Bld) [Ratio] 0.0 % 0-0.5 [facility] Lymphocytes Auto (Bld) [#/Vo l]Ordered By: Raul Quan on 10-06-2021 Lymphocytes (Bld) [#/Vol] 1.0 10*3/uL 1.00-4.8 [facility] Lymphocytes/100 WBC Auto (Bl d)Ordered By: Raul Quan on 10-06-2021 Lymphocytes/100 WBC (Bld) 18.4 % . [facility] MCH Auto (RBC) [Entitic mass ]Ordered By: Raul Quan on 10-06-2021 MCH (RBC) [Entitic mass] 30.9 pg 27.5-35.2 [facility] MCHC Auto (RBC) [Mass/Vol]Or dered By: Raul Quan on 10-06-2021 MCHC (RBC) [Mass/Vol] 32.5 g/dL 32.5-35.6 [place] MCV Auto (RBC) [Entitic vol] Ordered By: Raul Quan on 10-06-2021 MCV (RBC) [Entitic vol] 95.2 fL 83.5-101 [facility] Monocytes Auto (Bld) [#/Vol] Ordered By: Raul Quan on 10-06-2021 Monocytes (Bld) [#/Vol] 0.6 10*3/uL 0.0-0.8 [facility] Monocytes/100 WBC Auto (Bld) Ordered By: Raul Quna on 10-06-2021 Monocytes/100 WBC (Bld) 12.0 % . [facility] Neutrophils Auto (Bld) [#/Vo l]Ordered By: Raul Quan on 10-06-2021 Neutrophils (Bld) [#/Vol] 3.5 10*3/uL 1.8-7.7 [facility] Neutrophils/100 WBC Auto (Bl d)Ordered By: Raul Quan on 10-06-2021 Neutrophils/100 WBC (Bld) 67.6 % . [facility] No Panel InformationOrdered By: Raul Quan on 10-06-2021 Estimated GFR () > 60 mL/Min [facility] Comment on above: GFR estimated refere nce range: According to KDOQI guidelines, <60 ml/min/1.73m2 is sufficient to diagnose a patient with chronic kidney disease. Pharmacy Creatinine Clearance (Chem N/A [facility] Platelet mean volume Auto (B ld) [Entitic vol]Ordered By: Raul Quan on 10-06-2021 Platelet mean volume (Bld) [Entitic vol] 8.1 fL 6.6-10.1 [facility] Platelets Auto (Bld) [#/Vol] Ordered By: Raul Quan on 10-06-2021 Platelets (Bld) [#/Vol] 185 10*3/uL 150-450 [facility] RBC Auto (Bld) [#/Vol]Ordere d By: Raul Quan on 10-06-2021 RBC (Bld) [#/Vol] 4.25 10*6/uL 3.90-5.60 [facility] Serum or plasma calcium richy urement (mass/volume)Ordered By: Raul Quan on 10-06-2021 Calcium [Mass/Vol] 9.0 mg/dL 8.2-10.2 [facility] Serum or plasma chloride young surement (moles/volume)Ordered By: Raul Quan on 10-06-2021 Chloride [Moles/Vol] 101 mmol/L 95-114 [facility] Serum or plasma glucose richy urement (mass/volume)Ordered By: Raul Quan on 10-06-2021 Glucose [Mass/Vol] 187 mg/dL 70-100 [facility] Comment on above: ADA recommended refe rence range Random Glucose Reference Range is dependent on time and content of last meal. Glucose of more than 200 mg/dL in a nonstressed, ambulatory subject supports the diagnosis of Diabetes Mellitus. Serum or plasma potassium me asurement (moles/volume)Ordered By: Raul Quan on 10-06-2021 Potassium [Moles/Vol] 4.0 mmol/L 3.5-5.1 [place] Serum or plasma sodium measu rement (moles/volume)Ordered By: Raul Quan on 10-06-2021 Sodium [Moles/Vol] 135 mmol/L 136-146 [facility] Serum or plasma total carbon dioxide measurement (moles/volume)Ordered By: Raul Quan on 10-06-2021 CO2 [Moles/Vol] 25.1 mmol/L 22.0-30.0 [facility] Serum or plasma urea nitroge n measurement (mass/volume)Ordered By: Raul Quan on 10-06-2021 Urea nitrogen [Mass/Vol] 13 mg/dL 9-23 [facility] CBC AUTO DIFFon 09-22-2021 BASO # 0.0 103/ul Normal 0.0-0.1 [facility] Comment on above: Performed By: #### C BC #### [facility] [address] [address] [address] Jodi Oglesby Basophils/100 WBC (Bld) 0.3 % Normal 0.2-2.0 [facility] Comment on above: Performed By: #### C BC #### [facility] [address] [place], [place] [address] Dr. Jodi Oglesby EO # 0.1 103/ul Normal 0.0-0.7 [facility] Comment on above: Performed By: #### C BC #### [facility] [address] [place] [address] Dr. Jodi Oglesby Eosinophils/100 WBC (Bld) 0.8 % Critically low 0.9-7.0 [facility] Comment on above: Performed By: #### C BC #### [facility] [address] [place] [address] Dr. Jodi Oglesby Erythrocyte distribution width (RBC) [Ratio] 12.5 % Normal 11.0-15.0 [facility] Comment on above: Performed By: #### C BC #### [facility] [address] [place] [address] Dr. Jodi Oglesby Hematocrit (Bld) [Volume fraction] 43.6 % Normal 42.0-54.0 [facility] Comment on above: Performed By: #### C BC #### [facility] [address] [place] [address] Dr. Jodi Oglesby Hemoglobin (Bld) [Mass/Vol] 14.1 g/dL Normal 14.0-18.0 [facility] Comment on above: Performed By: #### C BC #### [facility] [address] [place] [address] Dr. Jodi Oglesby IG # 0.03 10e3/ul Normal 0.00-0.03 [facility] Comment on above: Performed By: #### C BC #### [facility] [address] [place] [address] Dr. Jodi Oglesby IG % 0.3 % Normal 0.0-0.5 [facility] Comment on above: Performed By: #### C BC #### [facility] [address] [place] [address] Dr. Jodi Oglesby LYMPH # 1.5 103/ul Normal 1.2-3.8 [facility] Comment on above: Performed By: #### C BC #### [facility] [address] [place] [address] Dr. Jodi Oglesby Lymphocytes/100 WBC (Bld) 17.2 % Critically low 20.5-60.0 [facility] Comment on above: Performed By: #### C BC #### [facility] [address] [place] [address] Dr. Jodi Oglesby MANUAL DIFF REQ NO Normal [facility] Comment on above: Performed By: #### C BC #### [facility] [address] [place] [address] Dr. Jodi Oglesby MCH (RBC) [Entitic mass] 31.1 pg Normal 25.9-34.0 [facility] Comment on above: Performed By: #### C BC #### [facility] [address] [place] [address] Dr. Jodi Oglesby MCHC (RBC) [Mass/Vol] 32.3 g/dL Normal 29.9-35.2 [facility] Comment on above: Performed By: #### C BC #### [facility] [address] [place] [address] Dr. Jodi Oglesby MCV (RBC) [Entitic vol] 96.0 fL Critically high 80.0-94.0 [facility] Comment on above: Performed By: #### C BC #### [facility] [address] [place] [address] Dr. Jodi Oglesby MONO # 1.0 103/ul Critically high 0.3-0.8 [facility] Comment on above: Performed By: #### C BC #### [facility] [address] [place] [address] Dr. Jodi Oglesby Monocytes/100 WBC (Bld) 10.8 % Normal 1.7-12.0 [facility] Comment on above: Performed By: #### C BC #### [facility] [address] [place] [address] Dr. Jodi Oglesby NEUT # 6.2 103/ul Normal 1.4-6.5 [facility] Comment on above: Performed By: #### C BC #### [facility] [address] [place] [address] Dr. Jodi Oglesby Neutrophils/100 WBC (Bld) 70.6 % Normal 43.0-75.0 [facility] Comment on above: Performed By: #### C BC #### [facility] [address] [address] [address] Jodi Oglesby Platelet mean volume (Bld) [Entitic vol] 9.6 fL Normal 9.5-13.5 [facility] Comment on above: Performed By: #### C BC #### [facility] [address] [address] [address] Jodi Oglesby PLT 206 103/ul Normal 150-450 [facility] Comment on above: Performed By: #### C BC #### [facility] [address] [place] [address] Dr. Jodi Oglesby RBC 4.54 106/ul Critically low 4.70-6.10 [facility] Comment on above: Performed By: #### C BC #### [facility] [address] [place] [address] Dr. Jodi Oglesby WBC 8.8 103/ul Normal 4.0-11.0 [facility] Comment on above: Performed By: #### C BC #### [facility] [address] [place] [address] Dr. Jodi Oglesby PROF CHEM 8 (BAS METB)on Anion gap [Moles/Vol] 9.5 mmol/L Normal [facility] Comment on above: Performed By: #### B MP #### [facility] [address] [place] [address] Dr. Jodi Oglesby Calcium [Mass/Vol] 9.4 mg/dL Normal 8.5-10.1 [facility] Comment on above: Performed By: #### B MP #### [facility] [address] [place] [address] Dr. Jodi Oglesby Chloride [Moles/Vol] 100 mmol/L Normal 98-107 [facility] Comment on above: Performed By: #### B MP #### [facility] [address] [place] [address] Dr. Jodi Oglesby CO2 [Moles/Vol] 33.2 mmol/L Critically high 21.0-32.0 [facility] Comment on above: Performed By: #### B MP #### [facility] [address] [address] [address] Jodi Oglesby Creatinine [Mass/Vol] 0.99 mg/dL Normal 0.70-1.30 [facility] Comment on above: Performed By: #### B MP #### [facility] [address] [address] [address] Jodi Oglesby EGFR-AF CENTRAL AFRICAN >60 Normal >=60 [facility] Comment on above: Performed By: #### B MP #### [facility] [address] [address] [address] Jodi Oglesby EGFR-NON AF CENTRAL AFRICAN >60 Normal >=60 [facility] Comment on above: Performed By: #### B MP #### [facility] [address] [address] [address] Jodi Oglesby Glucose [Mass/Vol] 109 mg/dL Critically high 74-106 [facility] Comment on above: Performed By: #### B MP #### [facility] [address] [place] [address] Dr. Jodi Oglesby Potassium [Moles/Vol] 4.7 mmol/L Normal 3.5-5.1 [facility] Comment on above: Performed By: #### B MP #### [facility] [address] [place] [address] Dr. Jodi Oglesby Sodium [Moles/Vol] 138 mmol/L Normal 136-145 [facility] Comment on above: Performed By: #### B MP #### [facility] [address] [address] [address] Jodi Oglesby Urea nitrogen [Mass/Vol] 17.0 mg/dL Normal 7.0-18.0 [facility] Comment on above: Performed By: #### B MP #### [facility] [address] [place] [address] Dr. Jodi Oglesby Urea nitrogen/Creatinine [Mass ratio] 17.2 mg/mg Normal [facility] Comment on above: Performed By: #### B MP #### [facility] [address] [address] [address] Jodi Oglesby Creatinine (Bld) [Mass/Vol]O rdered By: Tamar Perea on 09-18-2021 Creatinine [Mass/Vol] 0.8 mg/dL 0.6-1.3 [place] Comment on above: ER/ESD physician is notified/shown all ISTAT results. Critical values may be confirmed by laboratory testing if deemed necessary by ER attending doctor. No Panel InformationOrdered By: Tamar Perea on 09-18-2021 POC Estimated GFR > 60 [facility] Comment on above: GFR estimated refere nce range: According to KDOQI guidelines, <60 ml/min/1.73m2 is sufficient to diagnose a patient with chronic kidney disease. POC Estimated GFR Non- Amer > 60 [facility] CBC AUTO DIFFon 08-12-2021 BASO # 0.0 103/ul Normal 0.0-0.1 [facility] Comment on above: Performed By: #### C BC #### [facility] [address] [place] [address] Dr. Jodi Oglesby Basophils/100 WBC (Bld) 0.3 % Normal 0.2-2.0 [facility] Comment on above: Performed By: #### C BC #### [facility] [address] [place] [address] Dr. Jodi Oglesby EO # 0.1 103/ul Normal 0.0-0.7 [facility] Comment on above: Performed By: #### C BC #### [facility] [address] [address] [address] Jodi Oglesby Eosinophils/100 WBC (Bld) 1.8 % Normal 0.9-7.0 [facility] Comment on above: Performed By: #### C BC #### [facility] [address] [place] [address] Dr. Jodi Oglesby Erythrocyte distribution width (RBC) [Ratio] 12.6 % Normal 11.0-15.0 [facility] Comment on above: Performed By: #### C BC #### [facility] [address] [place] [address] Dr. Jodi Oglesby Hematocrit (Bld) [Volume fraction] 40.9 % Critically low 42.0-54.0 [facility] Comment on above: Performed By: #### C BC #### [facility] [address] [place] [address] Dr. Jodi Oglesby Hemoglobin (Bld) [Mass/Vol] 13.4 g/dL Critically low 14.0-18.0 [facility] Comment on above: Performed By: #### C BC #### [facility] [address] [place] [address] Dr. Jodi Oglesby IG # 0.03 10e3/ul Normal 0.00-0.03 [facility] Comment on above: Performed By: #### C BC #### [facility] [address] [place] [address] Dr. Jodi Oglesby IG % 0.4 % Normal 0.0-0.5 [facility] Comment on above: Performed By: #### C BC #### [facility] [address] [place] [address] Dr. Jodi Oglesby LYMPH # 1.4 103/ul Normal 1.2-3.8 [facility] Comment on above: Performed By: #### C BC #### [facility] [address] [place] [address] Dr. Jodi Oglesby Lymphocytes/100 WBC (Bld) 18.6 % Critically low 20.5-60.0 [facility] Comment on above: Performed By: #### C BC #### [facility] [address] [place] [address] Dr. Jodi Oglesby MCH (RBC) [Entitic mass] 31.5 pg Normal 25.9-34.0 [facility] Comment on above: Performed By: #### C BC #### [facility] [address] [place] [address] Dr. Jodi Oglesby MCHC (RBC) [Mass/Vol] 32.8 g/dL Normal 29.9-35.2 [facility] Comment on above: Performed By: #### C BC #### [facility] [address] [place] [address] Dr. Jodi Oglesby MCV (RBC) [Entitic vol] 96.0 fL Critically high 80.0-94.0 [facility] Comment on above: Performed By: #### C BC #### [facility] [address] [place] [address] Dr. Jodi Oglesby MONO # 0.7 103/ul Normal 0.3-0.8 [facility] Comment on above: Performed By: #### C BC #### [facility] [address] [place] [address] Dr. Jodi Oglesby Monocytes/100 WBC (Bld) 9.7 % Normal 1.7-12.0 [facility] Comment on above: Performed By: #### C BC #### [facility] [address] [place] [address] Dr. Jodi Oglesby NEUT # 5.1 103/ul Normal 1.4-6.5 [facility] Comment on above: Performed By: #### C BC #### [facility] [address] [place] [address] Dr. Jodi Oglesby Neutrophils/100 WBC (Bld) 69.2 % Normal 43.0-75.0 [facility] Comment on above: Performed By: #### C BC #### [facility] [address] [place] [address] Dr. Jodi Oglesby Platelet mean volume (Bld) [Entitic vol] 9.8 fL Normal 9.5-13.5 [facility] Comment on above: Performed By: #### C BC #### [facility] [address] [place] [address] Dr. Jodi Oglesby PLT 195 103/ul Normal 150-450 [facility] Comment on above: Performed By: #### C BC #### [facility] [address] [place] [address] Dr. Jodi Oglesby RBC 4.26 106/ul Critically low 4.70-6.10 [facility] Comment on above: Performed By: #### C BC #### [facility] [address] [place] [address] Dr. Joid Oglesby WBC 7.4 103/ul Normal 4.0-11.0 [facility] Comment on above: Performed By: #### C BC #### [facility] [address] [place] [address] Dr. Jodi Oglesby ASHLEY - TSHon 08-12-2021 TSH 1.879 uIU/mL Normal 0.358-3.740 [facility] Comment on above: Performed By: #### D ATTSH, DATBMP #### [facility] [address] [place] [address] Dr. Jodi Oglesby TSH RANGE SEE BELOW Normal [facility] Comment on above: Result Comment: <0.3 4 UIU/ml HYPERTHYROID 0.34-5.60 UIU/ml EUTHYROID >5.60 UIU/ml HYPOTHYROID Performed By: #### D ATTKENDELL, DATBMP #### [facility] [address] [place] [address] Dr. Jodi Oglesby ASHLEY- BMP WITH LIPIDon 2021 Anion gap [Moles/Vol] 11.4 mmol/L Normal [facility] Comment on above: Performed By: #### D ATTSH, DATBMP #### [facility] [address] [place] [address] Dr. Jodi Oglesby Calcium [Mass/Vol] 8.7 mg/dL Normal 8.5-10.1 [facility] Comment on above: Performed By: #### D ATTSH, DATBMP #### [facility] [address] [place] [address] Dr. Jodi Oglesby Chloride [Moles/Vol] 105 mmol/L Normal 98-107 [facility] Comment on above: Performed By: #### D ATTSH, DATBMP #### [facility] [address] [place] [address] Dr. Jodi Oglesby Cholesterol [Mass/Vol] 113 mg/dL Normal <=200 [facility] Comment on above: Performed By: #### D ATTSH, DATBMP #### [facility] [address] [place] [address] Dr. Jodi Oglesby Cholesterol in HDL [Mass/Vol] 47 mg/dL Normal 40-60 [facility] Comment on above: Performed By: #### D ATTSH, DATBMP #### [facility] [address] [place] [address] Dr. Jodi Oglesby Cholesterol in LDL [Mass/Vol] 58.0 mg/dL Normal [facility] Comment on above: Performed By: #### D ATTSH, DATBMP #### [facility] [address] [place] [address] Dr. Jodi Oglesby CO2 [Moles/Vol] 29.0 mmol/L Normal 21.0-32.0 [facility] Comment on above: Performed By: #### D ATTKENDELL, DATBMP #### [facility] [address] [place] [address] Dr. Jodi Oglesby Creatinine [Mass/Vol] 0.99 mg/dL Normal 0.70-1.30 [facility] Comment on above: Performed By: #### D ATTSH, DATBMP #### [facility] [address] [place] [address] Dr. Jodi Oglesby EGFR-AF CENTRAL AFRICAN >60 Normal >=60 [facility] Comment on above: Performed By: #### D ATTSH, DATBMP #### [facility] [address] [place] [address] Dr. Jodi Oglesby EGFR-NON AF CENTRAL AFRICAN >60 Normal >=60 [facility] Comment on above: Performed By: #### D ATTSH, DATBMP #### [facility] [address] [place] [address] Dr. Jodi Oglesby Glucose [Mass/Vol] 116 mg/dL Critically high 74-106 T [facility] Comment on above: Performed By: #### D ATTSH, DATBMP #### [facility] [address] [place] [address] Dr. Jodi Oglesby HDL NORMAL > or = 60 mg/dl - LO W CARDIOVASCULAR RISK <40 mg/dl - HIGH CARDIOVASCULAR RISK Normal [facility] Comment on above: Performed By: #### D ATTSH, DATBMP #### [facility] [address] [place] [address] Dr. Joid Oglesby LDL CALC NORMAL SEE BELOW Normal [facility] Comment on above: Result Comment: <100 mg/dl OPTIMAL 100 - 129 mg/dl NEAR OR ABOVE OPTIMAL 130 - 159 mg/dl BORDERLINE HIGH 160 - 189 mg/dl HIGH >190 mg/dl VERY HIGH Performed By: #### D ATTSH, DATBMP #### [facility] [address] [address] [address] Jodi Oglesby Potassium [Moles/Vol] 4.4 mmol/L Normal 3.5-5.1 [facility] Comment on above: Performed By: #### D ATTKENDELL, DATBMP #### [facility] [address] [address] [address] Jodi Oglesby Sodium [Moles/Vol] 141 mmol/L Normal 136-145 [facility] Comment on above: Performed By: #### D ATTKENDELL, DATBMP #### [facility] [address] [place] [address] Dr. Jodi Oglesby Triglyceride [Mass/Vol] 40 mg/dL Normal <=150 [facility] Comment on above: Performed By: #### D ATTKENDELL, DATBMP #### [facility] [address] [address] [address] Jodi Oglesby Urea nitrogen [Mass/Vol] 16.0 mg/dL Normal 7.0-18.0 [facility] Comment on above: Performed By: #### D ATTKENDELL, DATBMP #### [facility] [address] [address] [address] Jodi Oglesby Urea nitrogen/Creatinine [Mass ratio] 16.2 mg/mg Normal [facility] Comment on above: Performed By: #### D ATTKENDELL, DATBMP #### [facility] [address] [place] [address] Dr. Jodi Oglesby VLDL CALC 8.0 mg/dL Normal [facility] Comment on above: Performed By: #### D ATTSH, DATBMP #### [facility] [address] [place] [address] Dr. Jodi Oglesby GLYCOHEMOGLOBIN A1Con 06-07- 2022 ADA RECOMMENDATION SEE BELOW Normal [facility] Comment on above: Result Comment: ADA RECOMMENDED LIMIT 4.0 - 6.0 ADA THERAPEUTIC TARGET < 7.0 ACTION SUGGESTED > 7.0 Performed By: #### D ATA1C #### [facility] [address] [address] [address] Jodi Oglesby Glucose [Mass/Vol] 131 mg/dL Normal [facility] Comment on above: Performed By: #### D ATA1C #### [facility] [address] [address] [address] Jodi Oglesby HbA1c (Bld) [Mass fraction] 6.2 % Normal 4.5-6.2 [facility] Comment on above: Performed By: #### D ATA1C #### [facility] [address] [address] [address] Jodi Oglesby CNOVon 12-11-2020 CNOV Office Visit ([facility] ) -- CHICO BAKER ([id number]) 1940 M Date Time Provider Department 12/11/20 10:45 AM POWER CATHERINE During your visit today, we recorded the following information about you: Pulse Blood pressure Weight Height 60/minute 122/78 67.6 kg 1.702 m Power Catherine MD 12/11/2020 11:17 AM Signed [facility] OUTPATIENT VISIT DATE December 11, 2020 OUTPATIENT VISIT TYPE EST PRIMARY CARE PHYSICIAN: Shailesh Dunham (Jere) [address] [place] [address] REFERRING PHYSICIAN Power Catherine [address] [facility] [address] CHIEF COMPLAINT: Patient presents with: Established Patient [...] Power Catherine MD Referring Provider: POWER CATHERINE [[id number]] Allergies As of Date: 12/11/2020 Noted Allergy Reaction SHALINI INHIBITORS 05/09/2015 16 - Unknown GADOLINIUM-CONTAINING CONTRAST ME*05/09/2015 16 - Unknown TETANUS VACCINES AND TOXOID 05/16/2015 16 - Unknown Date Reviewed: 12/11/2020 Reviewed by: Harika Menjivar - Fully Assessed Reason for Visit: Established Patient [175] Follow Up [171] Primary Visit Diagnosis: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 - nitroglycerin sublingual (NITROQUICK) 0.3 mg SL tablet (more content not included)... Normal [facility] Jessa 10-30-2020 JOANNAN Telephone ([facility]) -- CHICO BAKER ([id number]) 1940 M Date Time Provider Department 10/30/20 [...] [I71.4] Order(s):US ABD AORTA [facility] [[id number]] Order #: [id number] FUTURE Prescriptions as of 11/04/2020 - aspirin, [...] Status:Closed by SHERI MOLINA on 11/04/20 Normal [facility] Vital Signs Date Time Vital Sign Value Performing Clinician Facility 01-13-2023 08:49-0500 Blood Pressure Location Ivelisse Hassan [facility] 01-13-2023 08:49-0500 Diastolic blood pressure 74 mm[Hg] Ivelisse Hassan [facility] 01-13-2023 08:49-0500 Heart rate 68 /min Ivelisse Lue [facility] 01-13-2023 08:49-0500 Respiratory rate 16 /min Ivelisse Lue [facility] 01-13-2023 08:49-0500 Systolic blood pressure 156 mm[Hg] Ivelisse Lue [facility] 11-10-2022 10:30-0400 Body height 170.18 cm Raul Quan Other [facility] Other 11-10-2022 10:30-0400 Body mass index (BMI) [Ratio] 20.99 kg/m2 Raul Quan Other [facility] Other 11-10-2022 10:30-0400 Body temperature 97.8 [degF] Raul Quan Other [facility] Other 11-10-2022 10:30-0400 Body weight 60.78 kg Raul Quan Other [employer] Other 11-10-2022 10:30-0400 Diastolic blood pressure 64 mm[Hg] Raul Quan Other [facility] Other 11-10-2022 10:30-0400 SaO2% (BldA) [Mass fraction] 98 % Raul Quan Other [facility] Other 11-10-2022 10:30-0400 Systolic blood pressure 110 mm[Hg] Raul Quan Other [employer] [facility] Other 10-07-2022 08:49-0400 Blood Pressure Location Ivelisse Lue [facility] 10-07-2022 08:49-0400 Diastolic blood pressure 74 mm[Hg] Ivelisse Lue [facility] 10-07-2022 08:49-0400 Heart rate 75 /min Ivelisse Lue [facility] 10-07-2022 08:49-0400 Systolic blood pressure 139 mm[Hg] Ivelisse Lue [facility] 08-04-2022 11:15-0400 Body height 170.18 cm Raul Quan Other [employer] [facility] [employer] Other 08-04-2022 11:15-0400 Body mass index (BMI) [Ratio] 21.77 kg/m2 Raul Quan Other [employer] Other 08-04-2022 11:15-0400 Body temperature 97.8 [degF] Raul Quan Other [employer] Other 08-04-2022 11:15-0400 Body weight 63.05 kg Raul Quan Other [employer] Other 08-04-2022 11:15-0400 Diastolic blood pressure 68 mm[Hg] Raul Quan Other [employer] Other 08-04-2022 11:15-0400 SaO2% (BldA) [Mass fraction] 97 % Raul Quan Other [facility] [employer] Other 08-04-2022 11:15-0400 Systolic blood pressure 108 mm[Hg] Raul Quan Other [facility] [employer] Other 07-09-2022 08:00-0400 Body temperature 98.6 [degF] DO Shailesh Ball Work Phone: [facility] 07-09-2022 08:00-0400 Diastolic blood pressure 72 mm[Hg] DO Shailesh Ball Work Phone: [facility] 07-09-2022 08:00-0400 Heart rate 69 /min DO Shailesh Ball Work Phone: [facility] 07-09-2022 08:00-0400 Respiratory rate 16 /min DO Shailesh Ball Work Phone: [facility] 07-09-2022 08:00-0400 SaO2% (BldA) [Mass fraction] 97 % DO Shailesh Ball Work Phone: [facility] 07-09-2022 08:00-0400 Systolic blood pressure 154 mm[Hg] DO Shailesh Ball Work Phone: [facility] 07-09-2022 06:00-0400 Body weight 65.8 kg DO Shailesh Ball Work Phone: [facility] 07-08-2022 10:52-0400 Inhaled oxygen flow rate 8 L/min DO Shailesh Ball Work Phone: [facility] 07-08-2022 08:34-0400 Body height 167.64 cm DO Shailesh Ball Work Phone: [facility] 07-08-2022 08:34-0400 Body mass index (BMI) [Ratio] 22.7 kg/m2 DO Shailesh Ball Work Phone: [facility] 06-24-2022 09:27-0400 Blood Pressure Location Ivelisse Hassan [facility] 06-24-2022 09:27-0400 Diastolic blood pressure 75 mm[Hg] Ivelisse Lue [facility] 06-24-2022 09:27-0400 Heart rate 66 /min Ivelisse Lue [facility] 06-24-2022 09:27-0400 Respiratory rate 16 /min Ivelisse Lue [facility] 06-24-2022 09:27-0400 Systolic blood pressure 120 mm[Hg] Ivelisse Lue [facility] 05-21-2022 09:30-0400 Body height 170.18 cm Shailesh Ball Other [facility] [employer] [facility] Other 05-21-2022 09:30-0400 Body mass index (BMI) [Ratio] 21.8 kg/m2 Shailesh Ball Other [facility] [facility] Other 05-21-2022 09:30-0400 Body weight 63.14 kg Shailesh Ball Other [facility] [facility] Other 05-21-2022 09:30-0400 Diastolic blood pressure 73 mm[Hg] Shailesh Ball Other [facility] [facility] Other 05-21-2022 09:30-0400 Respiratory rate 12 /min Shailesh Ball Other [facility] [facility] Other 05-21-2022 09:30-0400 Systolic blood pressure 121 mm[Hg] Shailesh Ball Other [facility] [facility] Other 05-19-2022 11:00-0400 Body height 170.18 cm Tamar Perea Other [employer] Other 05-19-2022 11:00-0400 Body mass index (BMI) [Ratio] 22.02 kg/m2 Tamar Perea Other [employer] Other 05-19-2022 11:00-0400 Body temperature 97.5 [degF] Tamar Perea Other [employer] Other 05-19-2022 11:00-0400 Body weight 63.78 kg Tamar Perea Other [employer] Other 05-19-2022 11:00-0400 Diastolic blood pressure 76 mm[Hg] Tamar Perea Other [employer] Other 05-19-2022 11:00-0400 SaO2% (BldA) [Mass fraction] 98 % Tamar Perea Other [employer] Other 05-19-2022 11:00-0400 Systolic blood pressure 148 mm[Hg] Tamar Perea Other [employer] Other 04-15-2022 08:57-0500 Blood Pressure Location Ivelisse Lue [facility] 04-15-2022 08:57-0500 Diastolic blood pressure 78 mm[Hg] Ivelisse Lue [facility] 04-15-2022 08:57-0500 Heart rate 68 /min Ivelisse Lue [facility] 04-15-2022 08:57-0500 Respiratory rate 16 /min Ivelisse Lue [facility] 04-15-2022 08:57-0500 Systolic blood pressure 122 mm[Hg] Ivelisse Hassan [facility] 03-10-2022 11:30-0500 Body height 170.18 cm Raul Quan Other [employer] Other 03-10-2022 11:30-0500 Body mass index (BMI) [Ratio] 21.2 kg/m2 Raul Lawrencerejakub Other [employer] Other 03-10-2022 11:30-0500 Body temperature 97.8 [degF] Raul Quan Other [employer] Other 03-10-2022 11:30-0500 Body weight 61.42 kg Raul Quan Other [employer] Other 03-10-2022 11:30-0500 Diastolic blood pressure 64 mm[Hg] Raul Quan Other [employer] Other 03-10-2022 11:30-0500 SaO2% (BldA) [Mass fraction] 98 % Raul Quan Other [employer] Other 03-10-2022 11:30-0500 Systolic blood pressure 108 mm[Hg] Raul Lawrencerejakub Other [employer] Other 02-25-2022 11:09-0500 Blood Pressure Location IVA ANTOINE [facility] 02-25-2022 11:09-0500 Diastolic blood pressure 63 mm[Hg] IVA ARASH [facility] 02-25-2022 11:09-0500 Heart rate 64 /min IVA ARASH [facility] 02-25-2022 11:09-0500 Systolic blood pressure 105 mm[Hg] IVA ARASH [facility] 02-18-2022 14:12-0500 Blood Pressure Location IVA ARASH [facility] 02-18-2022 14:12-0500 Diastolic blood pressure 83 mm[Hg] IVA ARASH [facility] 02-18-2022 14:12-0500 Heart rate 70 /min IVA ARASH [facility] 02-18-2022 14:12-0500 Systolic blood pressure 142 mm[Hg] IVA ARASH [facility] 02-11-2022 08:42-0500 Blood Pressure Location Ivelisse Lue [facility] 02-11-2022 08:42-0500 Diastolic blood pressure 73 mm[Hg] Ivelisse Lue [facility] 02-11-2022 08:42-0500 Heart rate 68 /min Ivelisse Lue [facility] 02-11-2022 08:42-0500 Respiratory rate 16 /min Ivelisse Lue [facility] 12-07-2022 08:42-0500 Systolic blood pressure 150 mm[Hg] Ivelisse Lue [facility] 02-05-2022 08:00-0500 Body temperature 99.1 [degF] DO Shailesh Ball Work Phone: [facility] 02-05-2022 08:00-0500 Diastolic blood pressure 76 mm[Hg] DO Shailesh Ball Work Phone: [facility] 02-05-2022 08:00-0500 Heart rate 78 /min DO Shailesh Ball Work Phone: [facility] 02-05-2022 08:00-0500 Respiratory rate 16 /min DO Shailesh Ball Work Phone: [facility] 02-05-2022 08:00-0500 SaO2% (BldA) [Mass fraction] 95 % DO Shailesh Ball Work Phone: [facility] 02-05-2022 08:00-0500 Systolic blood pressure 168 mm[Hg] DO Shailesh Ball Work Phone: [facility] 02-05-2022 03:21-0500 Body weight 64.1 kg DO Shailesh Ball Work Phone: [facility] 02-04-2022 11:43-0500 Inhaled oxygen flow rate 6 L/min DO Shailesh Ball Work Phone: [facility] 02-04-2022 09:31-0500 Body height 167.64 cm DO Shailesh Ball Work Phone: [facility] 02-04-2022 09:31-0500 Body mass index (BMI) [Ratio] 23.3 kg/m2 DO Shailesh Ball Work Phone: [facility] 01-20-2022 12:30-0500 Body height 170.18 cm Raul Quan Other [employer] Other 01-20-2022 12:30-0500 Body mass index (BMI) [Ratio] 21.92 kg/m2 Raul Buehrer Other [employer] Other 01-20-2022 12:30-0500 Body temperature 97.7 [degF] Raul Buehrer Other [employer] Other 01-20-2022 12:30-0500 Body weight 63.5 kg Raul Buehrer Other [employer] Other 01-20-2022 12:30-0500 Diastolic blood pressure 64 mm[Hg] Raul Buehrer Other [employer] Other 01-20-2022 12:30-0500 SaO2% (BldA) [Mass fraction] 99 % Raul Buehrer Other [employer] Other 01-20-2022 12:30-0500 Systolic blood pressure 116 mm[Hg] Raul Buehrer Other [employer] Other 01-05-2022 11:15-0400 Body height 170.18 cm Raul Buehrer Other [employer] Other 01-05-2022 11:15-0400 Body mass index (BMI) [Ratio] 21.92 kg/m2 Raul Buehrer Other [employer] Other 01-05-2022 11:15-0400 Body temperature 96 [degF] Raul Buehrer Other [employer] Other 01-05-2022 11:15-0400 Body weight 63.5 kg Raul Buehrer Other [employer] Other 01-05-2022 11:15-0400 Diastolic blood pressure 58 mm[Hg] Raul Osorior Other [employer] Other 01-05-2022 11:15-0400 SaO2% (BldA) [Mass fraction] 99 % Raul Quan Other [employer] Other 01-05-2022 11:15-0400 Systolic blood pressure 100 mm[Hg] Raul Osorior Other [employer] Other 11-24-2021 12:30-0400 Body height 170.18 cm Tamar Martinezmoy Other [employer] Other 11-24-2021 12:30-0400 Body mass index (BMI) [Ratio] 21.92 kg/m2 Tamar Martinezmoy Other [employer] Other 11-24-2021 12:30-0400 Body temperature 97.5 [degF] Tamar Martinezjerardokhalida Other [employer] Other 11-24-2021 12:30-0400 Body weight 63.5 kg Tamar Martinezmoy Other [employer] Other 11-24-2021 12:30-0400 Diastolic blood pressure 50 mm[Hg] Tamar Brit Other [employer] Other 11-24-2021 12:30-0400 SaO2% (BldA) [Mass fraction] 98 % Tamar Martinezmoy Other [employer] Other 11-24-2021 12:30-0400 Systolic blood pressure 96 mm[Hg] Tamar Perea Other [facility] [employer] [facility] Other 10-21-2021 07:30-0400 50 1 Shailesh E Ball Work Phone: [facility] [address] [place] Work Phone: Comment on above: [id number] 10-15-2021 08:27-0400 Body height 167.64 cm DO Shailesh Ball Work Phone: [facility] 10-15-2021 08:27-0400 Body temperature 97.7 [degF] DO Shailesh Ball Work Phone: [facility] 10-15-2021 08:27-0400 Body weight 66 kg DO Shailesh Ball Work Phone: [facility] 10-15-2021 08:27-0400 Diastolic blood pressure 75 mm[Hg] DO Shailesh Ball Work Phone: [facility] 10-15-2021 08:27-0400 Heart rate 73 /min DO Shailesh Ball Work Phone: [facility] 10-15-2021 08:27-0400 Respiratory rate 16 /min DO Shailesh Ball Work Phone: [facility] 10-15-2021 08:27-0400 SaO2% (BldA) [Mass fraction] 97 % DO Shailesh Ball Work Phone: [facility] 10-15-2021 08:27-0400 Systolic blood pressure 143 mm[Hg] DO Shailesh Ball Work Phone: [facility] 09-30-2021 13:30-0400 Body height 170.18 cm Tamar Perea Other [employer] [facility] [employer] Other 09-30-2021 13:30-0400 Body mass index (BMI) [Ratio] 24.27 kg/m2 Tamar Perea Other [employer] Other 09-30-2021 13:30-0400 Body temperature 97.4 [degF] Tamar Zhuo Other [employer] Other 09-30-2021 13:30-0400 Body weight 70.31 kg Tamar Zhuo Other [employer] Other 09-30-2021 13:30-0400 Diastolic blood pressure 70 mm[Hg] Tamar Zhuo Other [employer] Other 09-30-2021 13:30-0400 SaO2% (BldA) [Mass fraction] 98 % Tamar Zhuo Other [employer] Other 09-30-2021 13:30-0400 Systolic blood pressure 140 mm[Hg] Tamar Martinezjerardoo Other [employer] Other 09-15-2021 11:00-0400 Body height 170.18 cm Tamar Perea Other [employer] Other 09-15-2021 11:00-0400 Body mass index (BMI) [Ratio] 24.27 kg/m2 Tamar Zhuo Other [employer] Other 09-15-2021 11:00-0400 Body temperature 96.4 [degF] Tamar Zhuo Other [employer] Other 09-15-2021 11:00-0400 Body weight 70.31 kg Tamar Zhuo Other [employer] Other 09-15-2021 11:00-0400 Diastolic blood pressure 72 mm[Hg] Tamar Perea Other [employer] Other 09-15-2021 11:00-0400 SaO2% (BldA) [Mass fraction] 98 % Tamar Peera Other [employer] Other 09-15-2021 11:00-0400 Systolic blood pressure 138 mm[Hg] Tamar Perea Other [employer] Other 07-28-2021 10:45-0400 Body height 170.18 cm Raul Quan Other [employer] Other 07-28-2021 10:45-0400 Body mass index (BMI) [Ratio] 24.27 kg/m2 Raul Lawrencerer Other [employer] Other 07-28-2021 10:45-0400 Body temperature 96.6 [degF] Raul Lawrencerejakub Other [employer] Other 07-28-2021 10:45-0400 Body weight 70.31 kg Raul Lawrencerer Other [employer] Other 07-28-2021 10:45-0400 Diastolic blood pressure 78 mm[Hg] Raul Larwencerer Other [employer] Other 07-28-2021 10:45-0400 SaO2% (BldA) [Mass fraction] 98 % Raul Lawrencerer Other [employer] Other 07-28-2021 10:45-0400 Systolic blood pressure 190 mm[Hg] Raul Buehrer Other [employer] Other Encounters Encounter Date Encounter Type Care Provider Facility Start: 03-24-2023 ambulatory Ivelisse Hassan Facility:C D:[id number] Start: 01-13-2023 End: 01-14-2023 ambulatory Ivelisse M. Lue Facility:[facility] Start: 01-13-2023 End: 01-13-2023 Patient encounter procedure Ivelisse Schreiber Yennicaleb [facility] Start: 11-10-2022 Office outpatient vi sit 25 minutes Raul Quan [facility] Vascular Surgery Start: 11-10-2022 End: 11-10-2022 ambulatory DO Shailesh Dunham Work Phone: [employer] Other Start: 11-10-2022 End: 11-10-2022 Patient encounter procedure DO Shailesh Enrico Work Phone: [facility]Ultrasound [facility] Start: 10-07-2022 End: 10-08-2022 ambulatory Ivelisse Schreiber Yennicaleb Facility:[facility] Start: 10-07-2022 End: 10-07-2022 Patient encounter procedure Ivelisse Hassan [facility] Start: 08-04-2022 End: 08-04-2022 ambulatory Raul Quan Other [employer] Other Start: 08-04-2022 Postop follow up vis it related to original px Raul Quan [facility] Vascular Surgery Start: 07-28-2022 End: 07-29-2022 ambulatory Ivelissenaseem Hassan Facility:[facility] Start: 07-14-2022 ambulatory Ivelisse M. Yennie Facility:C [id number] Start: 07-09-2022 End: 07-09-2022 ambulatory Shailesh Ball Other [employer] Other Start: 07-09-2022 Telephone encounter Shailesh Dunham [facility] Start: 07-08-2022 End: 07-08-2022 ambulatory Shailesh Dunham Other [employer] Other Start: 07-08-2022 Telephone encounter Shailesh Dunham FP [facility] Start: 07-08-2022 End: 07-09-2022 Evaluation and management of inpatient Shailesh Ball Facility:[facility] Start: 07-08-2022 End: 07-09-2022 Evaluation and management of inpatient DO Shailesh Dunham Work Phone: [facility] Work Phone: Start: 07-01-2022 End: 07-01-2022 ambulatory Shailesh Dunham Facility:[facility] Start: 07-01-2022 End: 07-01-2022 ambulatory DO Shailesh Dunham Work Phone: [facility] Work Phone: Start: 07-01-2022 End: 07-01-2022 Patient encounter procedure DO Shailesh Dunham Work Phone: [facility] Work Phone: Start: 06-24-2022 End: 06-25-2022 ambulatory Ivelisse Hassan Facility:[facility] Start: 06-24-2022 End: 06-24-2022 Patient encounter procedure Ivelisse Hassan [facility] [place] Start: 05-21-2022 End: 05-21-2022 ambulatory Shailesh Dunham Other [employer] Other Start: 05-21-2022 Patient encounter procedure Shailesh Dunham [facility] Start: 05-19-2022 End: 05-19-2022 ambulatory Tamar Perea Other [employer] Other Start: 05-19-2022 Follow-up encounter Tamar Brit [facility] Start: 05-13-2022 End: 05-13-2022 ambulatory Raul Quan Other [employer] Other Start: 05-13-2022 Telephone encounter Raul STEPHENSON [facility] Start: 05-11-2022 End: 05-11-2022 ambulatory Shailesh Dunham Facility:[facility] Start: 05-11-2022 End: 05-11-2022 ambulatory DO Shailesh Dunham Work Phone: [facility] Work Phone: Start: 05-11-2022 End: 05-11-2022 Patient encounter procedure DO Shailesh Dunham Work Phone: [facility]-CT Scan [facility] [place] Work Phone: Start: 04-23-2022 End: 04-23-2022 ambulatory Raul Quan Other [employer] Other Start: 04-23-2022 Telephone encounter Raul Quan [facility] Vascular Surgery Start: 04-15-2022 End: 04-16-2022 ambulatory Ivelisse Hassan Facility:[facility] Start: 04-15-2022 End: 04-15-2022 Lab Drop off Ivelisse Hassan [facility] Start: 04-15-2022 End: 04-16-2022 ambulatory Ivelisse Hassan Facility:[facility] Start: 04-15-2022 End: 04-15-2022 Patient encounter procedure Ivelisse Hassan [facility] [place] Start: 04-14-2022 End: 04-14-2022 ambulatory Shailesh Dunham Other [employer] Other Start: 04-14-2022 Telephone encounter Shailesh Dunham [facility] Start: 03-10-2022 End: 03-10-2022 ambulatory Raul Quan Other [employer] Other Start: 03-10-2022 Office outpatient vi sit 25 minutes Raul Quan [facility] Vascular Surgery Start: 02-25-2022 End: 02-25-2022 Patient encounter procedure IVA BUSHRY [facility] Start: 02-18-2022 End: 02-18-2022 Patient encounter procedure IVA BUSHRY [facility] Start: 02-11-2022 End: 02-11-2022 Lab Drop off Ivelisse Hassan [facility] Start: 02-11-2022 End: 02-11-2022 Patient encounter procedure Ivelisse Hassan [facility] Start: 02-10-2022 End: 02-11-2022 ambulatory IVELISSE HASSAN . Facility:[facility] Start: 02-07-2022 Encounter for other preprocedural examination DR RAUL QUAN [facility] Start: 02-07-2022 Encounter for preprocedural laboratory examination DR RAUL QUAN [facility] Start: 02-04-2022 End: 02-05-2022 Evaluation and management of inpatient Shailesh Dunham Facility:[facility] Start: 02-04-2022 End: 02-05-2022 Evaluation and management of inpatient DO Shailesh Dunham Work Phone: [facility] [place] [facility] Start: 02-02-2022 End: 02-03-[address] RAUL QUAN Facility:[facility] Start: 02-02-2022 End: 02-03-2022 Encounter for other preprocedural examination DR RAUL QUAN Facility:[facility] Start: 01-20-2022 Office outpatient vi sit 25 minutes Raul Quan [facility] Vascular Surgery Start: 01-20-2022 End: 01-20-2022 ambulatory DO Shailesh Dunham Work Phone: [employer] Other Start: 01-20-2022 End: 01-20-2022 Patient encounter procedure DO Shailesh Dunham Work Phone: [facility]Ultrasound [facility] Start: 01-05-2022 End: 01-05-2022 ambulatory Raul Quan Other [employer] Other Start: 01-05-2022 Office outpatient vi sit 25 minutes Raul Quan [facility] Vascular Surgery Start: 12-08-2021 End: 12-09-[address] SHAILESH DUNHAM Facility:[facility] Start: 12-02-2021 End: 12-02-[address] SHAILESH DUNHAM Facility:[facility] Start: 11-24-2021 End: 11-24-2021 ambulatory Tamar Martinezjerardokhalida Other [place] Other Start: 11-24-2021 Patient encounter procedure Tamar Brit [facility] Vascular Surgery Start: 11-11-2021 End: 11-11-[address] SHAILESH DUNHAM Facility:[facility] Start: 10-26-2021 End: 10-26-[address] SHAILESH DUNHAM Facility:[facility] Start: 10-21-2021 Patient encounter procedure Shailesh Dunham Work Phone: [facility] [address] [place] Work Phone: Start: 10-16-2021 Telephone encounter Judah Vivas MD Work Phone: [facility] [place] Work Phone: Start: 10-15-2021 End: 10-15-2021 Evaluation and management of inpatient DO Shailesh Dunham Work Phone: [facility] Start: 10-13-2021 End: 10-13-2021 Patient encounter procedure DO Shailesh Dunham Work Phone: [facility]-Pre-Surgical Testing Start: 10-06-2021 End: 10-06-2021 Patient encounter procedure DO Shailesh Dunham Work Phone: [facility]Surgical [facility] Start: 09-30-2021 End: 09-30-2021 ambulatory Tamar Perea Other [employer] Other Start: 09-30-2021 Encounter for other preprocedural examination Tamar Brit [facility] Vascular Surgery Start: 09-30-2021 Follow-up encounter Tamar Perea [facility] Start: 09-22-2021 End: 09-23-[address] SHAILESH DUNHAM Facility:[facility] Start: 09-18-2021 End: 09-18-2021 Patient encounter procedure DO Shailesh Dunham Work Phone: [facility] [place] Start: 09-15-2021 End: 09-15-2021 ambulatory Tamar Perea Other [employer] Other Start: 09-15-2021 Follow-up encounter Tamar Brit [facility] Start: 08-27-2021 End: 08-27-2021 Patient encounter procedure DO Shailesh Dunham Work Phone: [facility]Ul[facility]ound [facility] Start: 08-12-2021 End: 08-13-[address] KURTZ LISTED REQUEST Facility:[facility] Start: 07-28-2021 End: 07-28-2021 ambulatory Raul Quan Other [employer] Other Start: 07-28-2021 Office outpatient ne w 45 minutes Raul Quan [facility] Vascular Surgery Start: 06-13-2020 End: 06-13-2020 Patient encounter procedure Lisandra Sher Work Phone: [facility] Work Phone: Patient encounter status Judah Harrington MD Work Phone: [facility] DO Work Phone: Procedures Date Procedure Procedure Detail Performing Clinician Start: 11-10-2022 Doppler ultrasonography of bilateral carotid arteries DO Shailesh Dunham Work Phone: Start: 07-28-2022 Cystourethroscopy with dilation of urethral stricture Ivelisse Hassan Start: 07-08-2022 Antibody screen Shailesh Dunham Comment on above: Result Comment: PERFORMED BY: [facility] [address] [place] [address] PATHOLOGIST [employer] MACHINE OPERATOR ZENA CASTELLON M.D. Start: 07-08-2022 Insertion of [...] on above: Performed By: #### DATA1C #### [facility] [address] [place] [address] Dr. 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 Ivelisse Hassan Start: 02-04-2022 Antibody screen Shailesh Dunham Comment on above: Result Comment: PERFORMED BY: [facility] [address] [place] [address] PATHOLOGIST [employer] MACHINE OPERATOR ZENA CASTELLON M.D. Start: 02-04-2022 Endovascular repair of abdominal aortic aneurysm DO Shailesh Dunham Work Phone: Start: 01-20-2022 Doppler ultrasonography of bilateral carotid arteries DO Shailesh Dunahm Work Phone: Start: 09-18-2021 Computed tomography angiography of abdominal and/or pelvic blood vessel DO [employer] [place] Work Phone: Start: 08-27-2021 US scan of aorta DO [employer] [facility] [place] Work Phone: Start: 08-27-2021 Doppler ultrasonography of bilateral carotid arteries DO [employer] [facility] [place] Work Phone: Start: 06-13-2020 Imm. administration COVID19 [employer] Work Phone: Start: 06-13-2020 SARS-CoV-2 vaccine, 0.5ml [employer] Work Phone: Start: 10-18-2019 Transurethral prostatectomy Ivelisse Lue Start: 04-06-2019 Cystoscope, device (physical object) Ivelisse Lue Start: 10-06-2016 Colonoscopy Ivelisse Lue Comment on above: 2010 Arthroscopy of knee Ivelisse Yenni e Catheterization of left heart Ivelisse Lue Esophagogastroduodenoscopy K athy Lue Plan of Treatment Date Care Activity Detail Author Start: 07-09-2022 [facility] Start: 07-08-2022 Hospital admission [facility] Start: 07-08-2022 Patient referral to dietitian [facility] Start: 02-05-2022 [facility] Start: 02-04-2022 [facility] Start: 02-04-2022 Hospital admission [facility] Start: 10-21-2021 STRESS NUC, Provider: SAL HHVI NUCLEAR ,[id number], Status: Pen, Time: 7:30 AM STRESS NUC, Provider: SAL HHVI NUCLEAR ,[id number], Status: Pen, Time: 7:30 AM [facility] DO Work Phone: Start: 10-15-2021 [facility] Work Phone: Start: 10-15-2021 OR Percutaneous EVAR AAA (Not Applicable) OR Percutaneous EVAR AAA (Not Applicable) [facility] Start: 10-15-2021 End: 10-15-2021 Evaluation and management of inpatient AAA (abdominal aortic aneurysm) [facility] Start: 10-13-2021 End: 10-13-2021 Patient encounter procedure Departed Clinical [facility] Fno-Ybe-Necffatf Testing Patient Education [facility] Work Phone: Patient referral [facility] Work Phone: Immunizations Immunization Date Immunization Notes Care Provider David holloway 06-13-2020 Rodney and Rodney COVID 19 Vaccine [facility] Comment on above: Note: Patient tolera shyann well. No signs or symptoms of adverse reactions. Patient waited a minimum of 15 minutes. NEGATED: Highlighted row has not occurred!01-13-2023 influenza virus vaccine, unspecified formulation Ivelisse Hassan [facility] Payers Date Payer Category Payer Unknown [id number] . [id number] 1959 Self-pay [id number] 1959 Unknown [id number] 1959 Unknown [id number] 1959 Unknown [id number] 1942 Unknown [id number] 2.16.84 0.1.066161.3.579.2.593 1942 Unknown [id number] 2.16.84 0.1.014654.3.579.2.593 1942 Unknown [id number] 2.16.84 0.1.278980.3.579.2.593 1942 Unknown [id number] 2.16.84 0.1.786893.3.579.2.593 1942 Unknown [id number] 2.16.84 0.1.358979.3.579.2.593 1942 Unknown [id number] 2.16.84 0.1.698308.3.579.2.593 1942 Unknown [id number] 2.16.84 0.1.963287.3.579.2.593 1942 Unknown [id number] 2.16.8 40.1.798092.3.579.2.727 1942 Unknown [id number] 2.16.8 40.1.348154.3.579.2.727 1942 Unknown [id number] 2.16.8 40.1.455083.3.579.2.727 1942 Unknown [id number] 2.16.8 40.1.103880.3.579.2.727 1942 Unknown [id number] 2.16.8 40.1.791468.3.579.2.727 1942 Unknown [id number] 2.16.8 40.1.674822.3.579.2.727 Self-pay Self Pay [id number] Unknown Unknown [facility] [id number] Unknown [id number] 2.16.84 0.1.732545.3.579.2.593 Social History Date Type Detail Facility Tobacco smoking status Unknown i f ever smoked [facility] Work Phone: Start: 03-08-1957 End: 03-08-1996 Sex Assigned At [facility] Start: 10-15-2021 End: 10-07-2022 Tobacco smoking status INIS Ex-smoker (finding) [facility] Start: 1940 Sex Assigned At Male F [facility] Tobacco smoking status Never [facility] Medical Equipment Procedure Code Equipment Code Equipment Origin al Text Equipment Identifier Dates Transcarotid artery revascularization (TCAR) Bare-metal carotid artery stent ()[id number] FDA Start: 07-08-2022 Transcarotid artery revascularization (TCAR) Bare-metal carotid artery stent ()[id number] FDA Start: 07-08-2022 Percutaneous endovascular repair of abdominal aortic aneurysm (AAA) Abdominal aorta endovascular stent-graft ()[id number] FDA Start: 02-04-2022 Percutaneous endovascular repair of abdominal aortic aneurysm (AAA) Abdominal aorta endovascular stent-graft ()[id number] FDA Start: 02-04-2022 Percutaneous endovascular repair of abdominal aortic aneurysm (AAA) Abdominal aorta endovascular stent-graft ()[id number] FDA Start: 02-04-2022 Goals Date Patient Goal Desired Activity /State Functional Status Date Assessment Result Facility 01-13-2023 Functional Status N/A [facility] 10-07-2022 Functional Status N/A [facility] 07-09-2022 Functional status Patient is Pro gressing Toward Baseline [facility] Work Phone: 06-24-2022 Functional Status N/A [facility] 04-15-2022 Functional Status N/A [facility] 02-25-2022 Functional Status N/A [facility] 02-18-2022 Functional Status N/A [facility] 02-11-2022 Functional Status N/A [facility] 02-05-2022 Functional status Patient at Baseline [facility] Work Phone: 10-15-2021 Functional status Patient at Baseline [facility] Work Phone: Mental Status Date Assessment Result Facility 07-09-2022 Cognitive function Cognitive Sta tus Patient is Progressing Toward Baseline [facility] Work Phone: 02-05-2022 Cognitive function Cognitive Sta tus Patient at Baseline [facility] Work Phone: 10-15-2021 Cognitive function Cognitive Sta tus Patient at Baseline [facility] Work Phone: Clinical Notes 04-18-2020 to 01-13-2023 [...] urethra. Follow these instructions at home: Take eshs-qnj-lfxldlq and prescription medicines only as told by [...] provider. Document Revised: 09/10/2021 Document Reviewed: 09/10/2021 [employer] Patient Education 2022 LMN-1. Follow Up Care 10/07/2022 09:26:45 With:Mo LEIAJ, AKILAH Smith, URO Address: When: Unknown [facility] [place] 11-10-2022 Evaluation note Encounter Date Diagnosis Assessment [...] in the office with a CT scan. [employer] Other 08-02-2023 Hospital Discharge instructions Patient Education [...] urethra. Follow these instructions at home: Take yxnh-yjy-sazmvei and prescription medicines only as told by [...] provider. Document Revised: 09/10/2021 Document Reviewed: 09/10/2021 [employer] Patient Education 2022 LMN-1. Follow Up Care 07/28/2022 10:29:31 With:Mo LEIJA, AKILAH Smith, URO Address: When:Within 3 Day(s) [facility] 05-30-2023 Evaluation note* Encounter Date Diagnosis Assessment [...] a couple of weeks. These have resolved. [employer] Other 05-04-2023 Discharge summary Author Raul Quan [facility] July 09, 2022 12:08pm Note Date/Time July 09, 2022 8:07am [facility] [address] [place] [address] Discharge Summary Signed Patient: Chico Baker MR#: [id number] : 1940 Acct:[id number] Age/Sex: 82 / M Adm Date: 3 Loc: Room: [address] [place] [address]: Raul Quan MD Copies to: [...] midline, neck is supple, no JVD. Bilateral roundsman strength is equal. He has a little [...] <Electronically signed by MD Raul Quan> 07/09/22 2521 [facility] Work Phone: 1(924) 734-369005-03-2023 History and physical note Author Raul Quan [facility] July 08, 2022 11:06am Note Date/Time July 08, 2022 11:06a m [facility] [address] [place] [address] Vascular Surgery H&P Signed Patient: Chico Baker MR#: [id number] : 1940 Acct:[id number] Age/Sex: 82 / M Adm Date: 3 Loc: Room: [address] [place] [address] Type: ADM IN Attending Dr: Raul Quan [...] signed by MD Raul Quan> 07/08/22 1106 [facility] Work Phone: 1(452) 270-560604-19-2023 Hospital Discharge instructions Patient Education 06/24/2022 09:42:41 [...] Follow these instructions at home: Medicines Take qjsu-mma-zrgwuop and prescription medicines only as told by [...] or the blood stops without treatment. Take vfns-mjo-xhifcyw and prescription medicines only as told by your health care provider. Drink enough fluid to keep your urine pale yellow. This information is not intended to replace advice given to you by your health care provider. Make sure you discuss any questions you have with your health care provider. Document Revised: 10/23/2020 Document Reviewed: 10/23/2020 [employer] Patient Education 2022 LMN-1. 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 Walk daily Inspect feet daily for cuts [employer] Other 03-14-2023 Evaluation note* Encounter Date Diagnosis [...] left TCAR procedure once he returns from [place] at the end of June beginning of [...] agree with plan, and denies any questions. [employer] Other 03-08-2023 Evaluation note* Encounter Date Diagnosis Assessment Notes Treatment Notes Treatment Clinical Notes May, Carotid stenosis, bilateral (ICD-10 - I65.23) CTA: < 50% right, 80% left [employer] Other 03-08-2023 Evaluation note* Encounter Date Diagnosis Assessment Notes Treatment Notes Treatment Clinical Notes May, Carotid stenosis, bilateral (ICD-10 - I65.23) CTA: < 50% right, 70% left - 05/2022 [employer] Other 02-08-2023 Hospital Discharge instructions Patient Education [...] prostate. Follow these instructions at home: Take hgbx-abx-tdyxfqj and prescription medicines only as told by [...] 02/19/2001 Document Revised: 05/07/2018 Document Reviewed: 11/12/2016 [employer] Patient Education 2020 LMN-1. Follow Up Care 02/11/2022 10:55:52 With:Mo LEIJA, AKILAH Smith, URO Address: When: Unknown [facility] 02-07-2023 Evaluation note* Encounter Date Diagnosis Assessment Notes Treatment Notes Treatment Clinical Notes Apr, Primary hypertension (ICD-10 - I10) [employer] Other 01-03-2023 Evaluation note* Encounter Date Diagnosis [...] to perform simultaneously to minimize contrast exposure. [employer] Other 12-21-2022 Hospital Discharge instructions Patient Education 02/25/2022 12:02:33 Rash, Adult, Pzqb-tx-Kmqp Rash, Adult A rash is a change [...] with your condition: Medicine Take or apply ngix-jnq-cziitup and prescription medicines only as told by [...] the rash from spreading. Take or apply vpdt-awr-wsoqpkq and prescription medicines only as told by [...] 08/10/2008 Document Revised: 06/16/2019 Document Reviewed: 09/26/2018 [employer] Patient Education 2019 [employer] Follow Up Care 02/18/2022 14:33:21 With:Ivelisse Hassan Address:Unknown When: Unknown Comments:Appointment has already been scheduled [facility] 12-14-2022 Hospital Discharge instructions Patient Education 02/18/2022 [...] including vitamins, herbs, eye drops, creams, and vzsd-tam-sohwfct medicines. Any problems you or family members [...] provider tells you to take them. Taking evot-ymq-xiowxmu medicines, vitamins, herbs, and supplements. Eating and [...] 02/22/2006 Document Revised: 06/14/2019 Document Reviewed: 11/23/2018 [employer] Patient Education 2019 LMN-1. Follow Up Care 02/17/2022 16:33:06 With:ARASH BUCHANAN, IVA Ellis, URL Address: [address] [place] [address] [phone] When:02/25/2022 [facility] 12-07-2022 Hospital Discharge instructions Patient Education 02/11/2022 [...] prostate. Follow these instructions at home: Take fysq-qie-ppqrsxo and prescription medicines only as told by [...] 02/19/2001 Document Revised: 05/07/2018 Document Reviewed: 11/12/2016 [employer] Patient Education 2020 LMN-1. Follow Up Care 01/28/2021 10:15:04 With:Mo LEIJA, AKILAH Smith, URO Address: When:6 weeks [facility] 12-01-2022 Discharge summary Author Raul Quan [facility] February 05, 2022 10:08am Note Date/Time February 05, 2022 7 :52am [facility] [address] [place], [place] [id number] Discharge Summary Signed Patient: Chico Baker MR#: [id number] : 1940 Acct:[id number] Age/Sex: 81 / M Adm Date: 2 Loc: 4N Room: 9L2995-[address]: Raul Quan MD Copies to: [...] % (Auto) 69.5, Lymph % (Auto) 14.4, Dare % (Auto) 14.8, Eos % (Auto) 0.7, Baso % (Auto) 0.6, Nucleat RBC Rel Count 0.1, Neut # (Auto) 7.1, Lymph # (Auto) 1.5, Dare # (Auto) 1.5 H, Eos # (Auto) 0.1, Baso # (Auto) 0.1 02/04/22 08:25: Corrected WBC 9.3, Uncorrected WBC Count 9.3, RBC 4.10, Hgb 12.4L, Hct 37.5 L, MCV 91.5, MCH 30.2, MCHC 33.0, RDW 13.7, Plt Count 198, MPV 8.5, Neut % (Auto) 70.1, Lymph % (Auto) 16.4, Dare % (Auto) 12.0, Eos % (Auto) 0.9, Baso % (Auto) 0.6, Nucleat RBC Rel Count 0.0, Neut # (Auto) 6.5, Lymph # (Auto) 1.5, Dare # (Auto) 1.1 H, Eos # (Auto) [...] <Electronically signed by MD Raul Quan> 02/05/22 1007 [facility] Work Phone: 1(756) 390-729411-15-2022 Evaluation note* Encounter Date Diagnosis Assessment Notes [...] we will evaluate him for left TCAR. [employer] Other 10-31-2022 Evaluation note* Encounter Date Diagnosis [...] complete and CT confirms candidacy for TCAR [employer] Other 09-19-2022 Evaluation note* Encounter Date Diagnosis Assessment Notes Treatment Notes Treatment Clinical Notes Nov, AAA (abdominal aortic aneurysm) without rupture (ICD-10 - I71.4) This patient is still recovering from his recent orthopedic procedures. He continues with physical therapy and although he is getting stronger, he remains quite fatigued and weak yet. He has an upcoming appointment with his storage worker for preoperative risk assessment and stratification this next week. We will give him a few more weeks of physical therapy and have him back in a month or so to reschedule his AAA. He did tell me that he had some abdominal pain while in the senior living facility and was taken to the [facility] where a CT of the abdomen was obtained. We will get these studies pushed over for review and comparison. He denies any abdominal pain today and tells me his appetite is pretty good. He knows to call us in the meantime with any issues. [employer] Other 07-26-2022 Evaluation note* Encounter Date Diagnosis [...] agrees with this plan, denies any questions. [employer] Other 07-11-2022 Evaluation note* Encounter Date Diagnosis [...] agrees with this plan, and denies questions. [employer] Other 07-11-2022 Evaluation note* Encounter Date Diagnosis [...] agrees with this plan, and denies questions. [employer] Other 05-23-2022 Evaluation note* Encounter Date Diagnosis [...] returns we will get baseline ankle-brachial indices. [employer] Other 10-06-2021 NoteHNO ID: [id number] Author: Power Catherine MD Service: ? Author Type: Physician Type: Progress Notes Filed: 12/11/2020 11:17 AM Note Text: [facility] OUTPATIENT VISIT DATE December 11, 2020 OUTPATIENT VISIT TYPE EST PRIMARY CARE PHYSICIAN: Shailesh Dunham (Jere) [address] [place] [address] REFERRING PHYSICIAN Power Catherine [address] [facility] [address] CHIEF COMPLAINT: Patient presents with: Established Patient [...] up. Continue statin therapy. ? Power Catherine, [facility]02-11-2021 NotePatient Outreach (COVAMN) CHICO BAKER Abad ([id number]) 1940 M Date Time Provider Department 04/18/20 KIMBERLEY REHMAN During your visit today, we recorded the following information about you: Allergies As of Date: 04/18/2020 Noted Allergy Reaction SHALINI INHIBITORS 05/09/2015 16 - Unknown GADOLINIUM-CONTAINING CONTRAST ME*05/09/2015 16 - Unknown TETANUS VACCINES AND TOXOID 05/16/2015 16 - Unknown Date Reviewed: 10/18/2017 Reviewed by: Power Catherine - Fully Assessed Order(s):SARS-COVID VACCINE 1ST DOSE APPT [89200WDI] Order #: [id number] FUTURE Prescriptions as of 04/18/2020 Sig: ASPIRIN [...] PRODUSER on 04/22/20[facility] Evaluation + Plan note Future Appointments Appointment Date:04/15/2022 08:45:00 AM Scheduled Provider:Ivelisse Hassan MD Location:[facility] Appointment Type:URO Office Visit [facility] evaluation + Plan note Future Appointments Appointment Date:04/15/2022 08:45:00 AM Scheduled Provider:Ivelisse Hassan MD Location:[facility] Appointment Type:URO Office Visit Diagnostic Tests Pending * [facility]ments Appointment Date:02/25/2022 11:00:00 AM Scheduled Provider:IVA ANTOINE PA-C Location:[facility] Appointment Type:URO Office Visit Appointment Date:04/15/2022 08:45:00 AM Scheduled Provider:Ivelisse Hassan MD Location:[facility] Appointment Type:URO Office Visit [facility] evaluation + Plan note Future Appointments Appointment Date:06/24/2022 09:30:00 AM Scheduled Provider:Ivelisse Hassan MD Location:[facility] Appointment Type:URO Office Visit [facility] evaluation + Plan note Future Appointments Appointment Date:01/13/2023 09:00:00 AM Scheduled Provider:Ivelisse Hassan MD Location:[facility] Appointment Type:URO Office Visit [facility] evaluation note* Diagnosis Onset Date Resolution Status AAA (abdominal aortic aneurysm) [facility] Work Phone: Evaluation noteNo assessment information available [facility] Work Phone: Evalutjwhk noteNo InformationNortP[facility] Other Evalufjmxt note* Diagnosis Onset Date Resolution Status Left carotid stenosis acute [facility] Work Phone: History general Narrative - Reported* Type Description Date Medical History hypercholesterolemia Medical History abdominal aortic aneurysm Medical History Carotid stenosis Medical History PAD Surgical History TURP Surgical History knee arthroscopy LEFT Surgical History Vein stripping Hospitalization History See Above [employer] Other Hisldzn general Narrative - Reported* Type Description Date Medical History hypercholesterolemia Medical History abdominal aortic aneurysm Medical History Carotid stenosis Medical History PAD Surgical History TURP Surgical History knee arthroscopy LEFT Surgical History Vein stripping Surgical History RT FEMUR FX WITH ARABELLA PLACEMENT Hospitalization History See Above [employer] Other Hisjtyy general Narrative - Reported* Type Description Date Medical History hypercholesterolemia Medical History abdominal aortic aneurysm Medical History Carotid stenosis Medical History PAD Medical History [ ] Surgical History TURP Surgical History knee arthroscopy LEFT Surgical History Vein stripping Surgical History RT FEMUR FX WITH ARABELLA PLACEMENT Surgical History EVAR 02/04/2022 Surgical History [ ] Hospitalization History See Above [facility] Other Hisuubi general Narrative - Reported* Type Description Date [...] History COLONOSCOPY 2019 Hospitalization History See Above [employer] Other History general Narrative - Reported* Type [...] Left TCAR 07/2022 Hospitalization History See Above [employer] Other Hisibmo general Narrative - Reported* Type Description Date [...] Left TCAR 07/2022 Hospitalization History See Above [employer] Other Hospital course Narrative No data available for this section [facility] Discharge instructions No data available for this section [facility] Author Raul Buehrer [facility] October 15, 2021 4:31pm Note Date/Time October 15, 2021 4: 31pm [facility] [address] [place] [address] Vascular Surgery Progress Note Signed Patient: Chico Baker MR#: [id number] : 1940 Acct:[id number] Age/Sex: 81 / M Adm Date: 2 Loc: 4 Room: [address] [place] [address] Type: DIS IN Attending Dr: Raul Quan [...] proceed with evaluation here. I will [facility] to performoutpatient cardiac evaluation and then he will be rescheduled when he is cleared. Code(s): I71.4 - Abdominal aortic aneurysm, without rupture Status: Acute Documented By: Raul Quan MD 10/15/21 162 9 Signed By: <Electronically signed by MD Raul Quan> 10/15/21 1631 [facility] Work Phone: Progress note Author Pb Zurita [facility] October 16, 2021 5:41am Note Date/Time October 16, 2021 5: 41am [facility] [address] [place] [address] Anesthesia Progress Note Signed Patient: Chico Baker MR#: [id number] : 1940 Acct:[id number] Age/Sex: 81 / M Adm Date: 2 Loc: 4N Room: 1R1864-1 Type: DIS IN Attending Dr: Raul Quan MD Copies to: ~ Anesthesia Progress Note Narrative Narrative: Patient for EVAR today for 5+ centimeter infrarenal AAA. Past medical history hypertension, moderate aortic stenosis, and coronary artery disease. Review of medical records and discussion with indicates patient had stress test 2008 positive for infarct and ischemia at which time he was referred to [facility] and had cardiac cath. Medical management was apparently chosen. No interval events,testing, or intervention. Patient has been asymptomatic but sedentary and poor historian. Advised patient and family to see storage worker for consideration of preop stress testing. Discussed with surgeon Documented By: Pb Zurita MD 10/16/21 0535 Signed By: <Electronically signed by Pb Zurita MD> 10/16/21 0541 [facility] Work Phone: Progress note No data available for this section [facility] Reason for Referral No Reason for Referral [...] AUTHOR 04/02/2021 [facility] DATE CREATED AUTHOR AUTHOR'S ORGANIZ ATION 10/28/2021 [facility] DATE CREATED AUTHOR AUTHOR'S ORGANIZ ATION 04/14/2022 [facility] DATE CREATED AUTHOR AUTHOR'S ORGANIZ ATION 11/11/2022 [facility] DATE CREATED AUTHOR AUTHOR'S ORGANIZ ATION 03/05/2023 [facility] REASON FOR VISIT (unrecogniz ed section and content) REF BY DR DUNHAM FOR AAA, PAD AND CAROTID STENOSIS, Needs a new vascular surgeon7 WK FOLLOW UP; SHYANNE'S, ABDOMINAL, CAROTID [facility]K FOLLOW UP; SHYANNE'S, ABDOMINAL, CAROTID 08/27/21FOLLOW UP [facility] 09/18/21-AAAAAA see pt post femur fx rt and clavicle rt6 WK FOLLOW UP, Follow-up abdominal aortic aneurysmVASC 3 MONTH FOLLOW UP; CAROTID DUPLEX 11A, Abdominal aortic aneurysm3 week f/u EVAR, Follow-up after percutaneous aneurysm repairNo InformationNo InformationNo InformationNo InformationNo Information2 MONTH FOLLOW UP; [facility]/ Follow UpNo InformationNo InformationNo Information3 [...] BE BASED ON THE PRIMARY CLINICAL RECORDS. [employer] provides no warranty or guarantee of the accuracy or completeness of information in this document.
--- NOTE | 2023-03-24 18:51 | XR_ITS ---
The [address] [address] Patient Name: CHICO BAKER MRN: [id number] date: 1940 Sex: M Assigned Patient Location: ER Current Patient Location: ER Accession/Order Number: [id number] Exam Date: 03/24/2023 19:02 Report Date: 03/24/2023 19:56 At the request of: CARINE LOPEZ Procedure: XR chest 1V EXAM: XR chest 1V at 1901 hours HISTORY: Hypertension COMPARISON: 12/08/2021 TECHNIQUE: AP upright portable chest x-ray FINDINGS: The heart is not enlarged and the vasculature is not distended. No acute infiltrate, effusion or pneumothorax is identified. Calcified granulomas and possibly a calcified plaque is noted, and are unchanged. The osseous structures are grossly intact. XR/XR chest 1V IMPRESSION: No acute infiltrate or evidence of cardiac decompensation. Some chronic changes are noted. The overall appearance hasn't chest has not changed significantly. Electronically authenticated by: RAMONA EMERSON Date: 03/24/2023 19:56
--- NOTE | 2023-03-24 18:51 | ECG_ITS ---
[facility] Test Date: 2023-03-24 Pat Name: CHICO BAKER Department: Room: - Gender: Male Client Relations Representative: : 1940 Requested By: Order Number: [id number] Reading MD: DESHAUN WESTON Measurements Intervals [place] Rate: 82 P: 75 ME: 162 QRS: 77 QRSD: 84 T: 14 QT: 358 QTc: 397 Interpretive Statements 1100 Sinus rhythm 4068 Nonspecific [place] abnormality, can't exclude inferolateral ischemia 9130 borderline ECG Compared to ECG 03/17/2023 15:04:42 No significant changes Electronically Signed On 03-25-2023 6:52:08 EST by DESHAUN WESTON
--- NOTE | 2023-03-24 18:59 | ED.GENADUL1 ---
HPI - General Adult General Chief complaint: Nausea/Vomiting/Diarrhea Stated complaint: Blood Pressure High Time Seen by Provider: 03/24/23 18:37 Source: family Mode of arrival: Wheelchair Limitations: no limitations History of Present Illness HPI narrative: Patient is an 82-year-old male who presents to the emergency department for not feeling well and elevated blood pressure. He had lithotripsy done with stent placement this afternoon, after his procedure he was noted to have high blood pressure. He states that the nurses wanted him to stay overnight in the hospital for observation to control his blood pressure but they were able to get him feeling better with controlled blood pressure in PACU and he wanted to go home. He states he does not feel well at this time and was instructed to come to the ER if he did not feel well or his blood pressure went back up. He took carvedilol at 4 PM when he got home from PACU. He has had no fevers, chills. He states he feels dizzy. Related Data Home Medications Medication Instructions Recorded Confirmed aspirin 81 mg tablet,delayed 81 mg PO .qod 03/12/23 03/24/23 release carvedilol 12.5 mg tablet 12.5 mg PO BID 03/12/23 03/24/23 isosorbide dinitrate 30 mg tablet 30 mg PO DAILY 03/12/23 03/24/23 losartan 25 mg tablet 25 mg PO DAILY 03/12/23 03/24/23 pravastatin 40 mg tablet 40 mg PO DAILY 03/12/23 03/24/23 cholecalciferol (vitamin D3) 25 1,000 unit PO BID 03/24/23 03/24/23 mcg (1,000 unit) capsule clopidogrel 75 mg tablet 75 mg PO DAILY 03/24/23 03/24/23 Previous Rx's Medication Instructions Recorded oxybutynin chloride 5 mg tablet 5 mg PO Q8H PRN bladder spasms, 03/24/23 stent pain #60 tabs tamsulosin 0.4 mg capsule 0.4 mg PO QPM stone passage, stent 03/24/23 pain #30 caps Allergies Allergy/AdvReac Type Severity Reaction Status Date / Time SHALINI Inhibitors Allergy Unknown Verified 03/17/23 14:49 Iodinated Contrast Media Allergy Unknown Hives Verified 03/17/23 14:49 iodine Allergy Unknown Hives Verified 03/17/23 14:49 tetanus toxoid, adsorbed Allergy Unknown Verified 03/17/23 14:49 Review of Systems ROS Constitutional Denies: fever or chills Ears, nose, mouth, and throat Denies: throat pain or nasal congestion Cardiovascular Denies: chest pain Respiratory Denies: shortness of breath Gastrointestinal Reports: nausea and vomiting; Denies: diarrhea Genitourinary Denies: painful urination Musculoskeletal Denies: back pain Integumentary/Breast Denies: rash Neurological Reports: dizziness; Denies: headache PFSH [facility] Medical History (Updated 03/24/23 @ 20:26 by BEHZAD Dawson) Presence of internal carotid stent (~07/2022) ?Z95.828 - Presence of other vascular implants and grafts (ICD-10) Aortic valve stenosis ?I35.0 - Nonrheumatic aortic (valve) stenosis (ICD-10) Heart murmur ?R01.1 - Cardiac murmur, unspecified (ICD-10) Carotid stenosis ?I65.29 - Occlusion and stenosis of unspecified carotid artery (ICD-10) Anemia ?D64.9 - Anemia, unspecified (ICD-10) Femur fracture (~10/2021) ?S72.90XA - Unspecified fracture of unspecified femur, initial encounter for closed fracture (ICD-10) AAA (abdominal aortic aneurysm) ?I71.40 - Abdominal aortic aneurysm, without rupture, unspecified (ICD-10) Heartburn ?R12 - Heartburn (ICD-10) Delayed recovery from anesthesia Urethral stricture ?N35.919 - Unspecified urethral stricture, male, unspecified site (ICD-10) Post-void dribbling ?N39.43 - Post-void dribbling (ICD-10) Penile rash ?R21 - Rash and other nonspecific skin eruption (ICD-10) Paget's disease Nocturia ?R35.1 - Nocturia (ICD-10) Incontinence ?R32 - Unspecified urinary incontinence (ICD-10) Microhematuria ?R31.29 - Other microscopic hematuria (ICD-10) Impotence ?N52.9 - Male erectile dysfunction, unspecified (ICD-10) Hypertension ?I10 - Essential (primary) hypertension (ICD-10) Hyperlipidemia ?E78.5 - Hyperlipidemia, unspecified (ICD-10) Kidney stones ?N20.0 - Calculus of kidney (ICD-10) Gross hematuria ?R31.0 - Gross hematuria (ICD-10) Erectile dysfunction ?N52.9 - Male erectile dysfunction, unspecified (ICD-10) Dysuria ?R30.0 - Dysuria (ICD-10) BPH (benign prostatic hyperplasia) ?N40.0 - Benign prostatic hyperplasia without lower urinary tract symptoms (ICD-10) Asymptomatic microscopic hematuria ?R31.21 - Asymptomatic microscopic hematuria (ICD-10) ASHD (arteriosclerotic heart disease) ?I25.10 - Atherosclerotic heart disease of [place] coronary artery without angina pectoris (ICD-10) Surgical History (Updated 03/17/23 @ 15:14 by Anu Aden NP) History of open reduction and internal fixation (ORIF) procedure (~10/2021) ?Z98.890 - Other specified postprocedural states (ICD-10) Hx of esophagogastroduodenoscopy ?Z98.890 - Other specified postprocedural states (ICD-10) H/O cardiac catheterization ?Z98.890 - Other specified postprocedural states (ICD-10) H/O arthroscopy of knee ?Z98.890 - Other specified postprocedural states (ICD-10) H/O colonoscopy ?Z98.890 - Other specified postprocedural states (ICD-10) H/O cystoscopy ?Z98.890 - Other specified postprocedural states (ICD-10) H/O transurethral resection of prostate ?Z98.890 - Other specified postprocedural states (ICD-10) ?Z90.79 - Acquired absence of other genital organ(s) (ICD-10) S/P AAA repair (~02/2022) ?Z98.890 - Other specified postprocedural states (ICD-10) ?Z86.79 - Personal history of other diseases of the circulatory system (ICD-10) S/P cystourethroscopy with dilation of urethral stricture ?Z98.890 - Other specified postprocedural states (ICD-10) Social History (Updated 03/24/23 @ 21:52 by Dali Ballard) Within the past year, how often did you have a drink containing alcohol: 2-3 times a week Smoking status: Former smoker Non-prescribed substance use: denies use Previous occupational history: retired Highest level of school completed/degree received: high school graduate Are you now , , , , never or living with a partner: In a typical week, how many times do you talk on the telephone with family, friends, or neighbors: twice per week How often do you get together with friends or relatives: twice per week Little interest or pleasure in doing things: not at all Feeling down, depressed, or hopeless: not at all Feel stressed/tense/nervous/anxious/difficulty sleeping: not at all Do you think of yourself as: straight/heterosexual Gender Identity: male Exam Narrative Exam Narrative: Gen.: Awake, alert, in no distress Head: Normocephalic, atraumatic ENT: Moist mucous membranes Respiratory: No respiratory distress, lungs clear bilaterally Cardio: Regular rate and rhythm Gastrointestinal: Abdomen is soft, nondistended and nontender to palpation Extremities: Moves extremities equally Psych: Normal mood and affect Neuro: No focal neuro deficit Skin: Warm, dry, intact Constitutional Vital Signs, click to edit/add: Last Vital Signs Temp 98.5 F 03/25/23 05:32 Pulse 77 03/25/23 06:00 Resp 20 03/25/23 05:32 BP 153/72 H 03/25/23 05:32 Pulse Ox 93 L 03/25/23 05:32 O2 Del Method Room Air 03/25/23 05:32 Course Vital Signs Vital signs: Vital Signs Temperature 97.6 F 03/24/23 18:13 Pulse Rate 71 03/24/23 18:13 Respiratory Rate 20 03/24/23 18:13 Blood Pressure 190/82 H 03/24/23 18:13 Pulse Oximetry 99 03/24/23 18:13 Oxygen Delivery Method Room Air 03/24/23 18:13 Temperature 98.5 F 03/25/23 05:32 Pulse Rate 77 03/25/23 06:00 Respiratory Rate 20 03/25/23 05:32 Blood Pressure 153/72 H 03/25/23 05:32 Pulse Oximetry 93 L 03/25/23 05:32 Oxygen Delivery Method Room Air 03/25/23 05:32 Medical Decision Making MDM Narrative Medical decision making narrative: Patient was treated with gentle IV fluids, 10 mg IV labetalol and 4 mg IV Zofran. He is resting comfortably on reevaluation and blood pressure is better controlled although his blood pressures have been labile in the ER ranging from 140 systolic to 170 systolic. He was initially hypertensive on arrival but blood pressure improved some after reevaluation. He has no complaints of chest pain or shortness of breath. Lab studies, chest x-ray, EKG are unremarkable. I discussed staying overnight for observation with the patient and his daughter, at this point the patient is agreeable to staying, he states he is feeling better at this time but still feels generally unwell after his procedure this afternoon. He currently does not have any urinary symptoms, hematuria or severe flank pain. Medical Records Medical records reviewed: Yes I reviewed the patient's medical records Lab Data Lab results reviewed: Yes I reviewed the patient's lab results Labs: Lab Results 03/24/23 Range/Units 19:09 WBC 12.7 H (4.0-11.0) 10^3/uL RBC 4.24 L (4.70-6.10) 10^6/uL Hgb 12.8 L (14.0-18.0) g/dL Hct 38.7 L (42.0-54.0) % MCV 91.3 (80.0-94.0) fL MCH 30.2 (25.9-34.0) pg MCHC 33.1 (29.9-35.2) g/dL RDW 12.6 (11.0-15.0) % Plt Count 174 (150-450) 10^3/uL MPV 9.2 L (9.5-13.5) fL Neut % (Auto) 81.3 H (43.0-75.0) % Lymph % (Auto) 8.7 L (20.5-60.0) % [place] % (Auto) 8.2 (1.7-12.0) % Eos % (Auto) 1.0 (0.9-7.0) % Baso % (Auto) 0.5 (0.2-2.0) % Neut # (Auto) 10.3 H (1.4-6.5) 10^3/uL Lymph # (Auto) 1.1 L (1.2-3.8) 10^3/uL [place] # (Auto) 1.0 H (0.3-0.8) 10^3/uL Eos # (Auto) 0.1 (0.0-0.7) 10^3/uL Baso # (Auto) 0.1 (0.0-0.1) 10^3/uL Abs Immat Gran (auto) 0.04 H (0.00-0.03) 10^3/uL Imm/Tot Granulo (auto) 0.3 (0.0-0.5) % PT 10.9 (9.0-11.6) sec INR 1.03 Sodium 134 L (136-145) mmol/L Potassium 4.2 (3.5-5.1) mmol/L Chloride 99 (98-107) mmol/L Carbon Dioxide 28.3 (21.0-32.0) mmol/L Anion Gap 10.9 BUN 15.0 (7.0-18.0) mg/dL Creatinine 0.99 (0.70-1.30) mg/dL Est GFR ( Amer) >60 (>=60) Est GFR (Non-Af Amer) >60 (>=60) BUN/Creatinine Ratio 15.2 Glucose 127 H (74-106) mg/dL Lactate 0.8 (0.4-2.0) mmol/L Calcium 8.7 (8.5-10.1) mg/dL Total Bilirubin 0.5 (0.2-1.0) mg/dL AST 14 L (15-37) U/L ALT 16 (16-63) U/L Alkaline Phosphatase 145 H (46-116) U/L Troponin I High Sens 20.4 (4.0-76.1) pg/mL Total Protein 7.6 (6.4-8.2) g/dL Albumin 3.1 L (3.4-5.0) g/dL Globulin 4.5 g/dL Albumin/Globulin Ratio 0.7 TSH 2.002 (0.358-3.740) uIU/mL Imaging Data Chest x-ray: Attestation: I have reviewed the pertinent imaging results. Radiologist's impression: ITS Impressions Chest X-Ray 03/24/23 18:51 IMPRESSION: No acute infiltrate or evidence of cardiac decompensation. Some chronic changes are noted. The overall appearance hasn't chest has not changed significantly. Electronically authenticated by: RAMONA EMERSON Date: 03/24/2023 19:56 ECG Data Attestation: I personally reviewed and interpreted this ECG as follows: (Normal sinus rhythm at a rate of [address] elevation or ectopy. EKG reviewed by attending physician.) Discharge Plan Discharge Chief Complaint: Nausea/Vomiting/Diarrhea Clinical Impression: Dizziness, Nausea and vomiting, Hypertension Patient Disposition: Admitted as Observation Time of Disposition Decision: 20:25 Condition: Good Discharge Date/Time: 03/24/23 21:33
[2023-03-24] MEDS: 0.9 % SODIUM CHLORIDE 1,000 ML 500 ML IV (19:09)
[2023-03-24] MEDS: ONDANSETRON PF 4 MG/2 ML VIAL IV (19:13)
[2023-03-24 19:15] LABS: Basophils Absolute Auto 0.1 10^3/uL (0.0-0.1); Basophils Percent Auto 0.5 % (0.2-2.0); Eosinophils Absolute Auto 0.1 10^3/uL (0.0-0.7); Hematocrit 38.7 % (42.0-54.0); Hemoglobin 12.8 g/dL (14.0-18.0); Immature Granulocytes Abs Auto 0.04 10^3/uL (0.00-0.03); Immature Granulocytes Pct Auto 0.3 % (0.0-0.5); Lymphocytes Absolute Auto 1.1 10^3/uL (1.2-3.8); Lymphocytes Percent Auto 8.7 % (20.5-60.0); Mean Corpuscular HGB Conc 33.1 g/dL (29.9-35.2); Mean Corpuscular Hemoglobin 30.2 pg (25.9-34.0); Mean Corpuscular Volume 91.3 fL (80.0-94.0); Mean Platelet Volume 9.2 fL (9.5-13.5); Monocytes Percent Auto 8.2 % (1.7-12.0); Neutrophils Absolute Auto 10.3 10^3/uL (1.4-6.5); Neutrophils Percent Auto 81.3 % (43.0-75.0); Platelet Count 174 10^3/uL (150-450); Red Blood Count 4.24 10^6/uL (4.70-6.10); Red Cell Distribution Width 12.6 % (11.0-15.0); White Blood Count 12.7 10^3/uL (4.0-11.0)
[2023-03-24] MEDS: LABETALOL HCL 20 MG/4 ML SYRINGE 10 MG IVP (19:15)
[2023-03-24 19:30] LABS: INR 1.03; Prothrombin Time 10.9 sec (9.0-11.6)
[2023-03-24 19:35] LABS: Alanine Aminotransferase 16 U/L (16-63); Albumin Globulin Ratio 0.7; Albumin Level 3.1 g/dL (3.4-5.0); Alkaline Phosphatase 145 U/L (46-116); Anion Gap 10.9; Aspartate Amino Transferase 14 U/L (15-37); BUN Creatinine Ratio 15.2; Bilirubin Total 0.5 mg/dL (0.2-1.0); Calcium 8.7 mg/dL (8.5-10.1); Carbon Dioxide 28.3 mmol/L (21.0-32.0); Chloride 99 mmol/L (98-107); Estimated GFR (African America >60 (>=60); Estimated GFR (Non-African Ame >60 (>=60); Globulin 4.5 g/dL; Glucose 127 mg/dL (74-106); Potassium 4.2 mmol/L (3.5-5.1); Sodium 134 mmol/L (136-145); Total Protein 7.6 g/dL (6.4-8.2)
[2023-03-24 19:36] LABS: Lactate/Lactic Acid 0.8 mmol/L (0.4-2.0)
[2023-03-24 19:42] LABS: Thyroid Stimulating Hormone 2.002 uIU/mL (0.358-3.740); Troponin I High Sensitivity 20.4 pg/mL (4.0-76.1)
--- OUTSIDE RECORDS SUMMARY | 2023-03-24 21:56 | XMS_ITS | CCD ---
Author Name Unknown Address [address] [place] [address] Organization [facility] Care Team Providers Care [place] Man Name Role Phone Orlando Dotson Unavailable Raul Quan Unavailable Tamar Perea Unavailable Shailesh Dunham Unavailable DO Shailesh Dunham Primary Care Provider MD Raul Quan Attending Provider [phone] KB Perea Attending Provider MD Raul Quan Admit Provider DO Shailesh Dunham Primary Care Provider KB Perea Attending Provider MD Raul Quan Admit Provider [phone] MD Raul Quan Attending Provider [phone] SHAILESH DUNHAM Primary Care Physician [phone] [place] .IVELISSE Admitting Unavailable LUCaleb .IVELISSE Attending [...] Care Provider MD Raul Quan Attending Provider [phone] MD Raul Quan Admit Provider [phone] DO Shailesh Dunham Primary Care Provider MD Raul Quan Attending Provider Shailesh Dunham Primary [facility] Unavailable Tamar Perea Admitting Unavailable Tamar Perea Attending Unavailable Shailesh Dunham Primary Care Unavailable Raul Quan Admitting Unavailable Raul Quan Attending Unavailable Shailesh Dunham Primary Care Unavailable Raul Quan Attending Unavailable Raul Quan Admitting Unavailable Shailesh Dunham Primary Care Unavailable Raul Quan Attending Unavailable Raul Quan Admitting Unavailable Enrico Shailesh Primary Care Unavailable Raul Quan Admitting Unavailable Raul Quan Attending Unavailable Enrico Creston Primary Care Unavailable Raul Quan Attending Unavailable Raul Quan Admitting Unavailable Ivelisse Hassan Attending Unavailable Ivelisse Hassan Attending Unavailable Ivelisse Hassan Attending Unavailable Ivelisse Hassan Admitting Unavailable Ivelisse Hassan Attending Unavailable Ivelisse Hassan Attending Unavailable YenineIvelisse MSilvestre Attending Unavailable Ivelisse Hassan Attending Unavailable Ivelisse Hassan Attending Unavailable Allergies Allergy Classification Reported Allergen(s) Allergy Type Date of Onset Reaction(s) Facility (5 sources) Angiotensin Converting Enzyme (Shalini) Inhibitors Drug allergy Unknown [facility] SendMe Other (6 sources) Tetanus vaccine; Translations: [tetanus toxoid] Drug allergy Unknown [facility] Repository (19 sources) Angiotensin Converting Enzyme (Shalini) Inhibitors; Translations: [Angiotensin-conve rting enzyme inhibitor agent (substance)] Allergy to substance 02-24-20 19 Hiv, [facility] (8 sources) Contrast media Allergy to substance 10-07-19 22 [facility] (8 sources) Tetanus immune globulin Drug Allergy 02-24-20 19 Unknown Reaction [facility] (15 sources) Angiotensin-conver ting enzyme inhibitor agent Drug allergy Unknown [facility] SendMe Other (2 sources) Tetanus toxoid specific immunoglobulin E Drug allergy Unknown [facility] Other (10 sources) Contrast media; Translations: [Contrast Dye] Allergy to substance unknown [facility] (10 sources) Iodine; Translations: [iodine] Drug Allergy Unknown (qualifier value) [facility] (9 sources) tetanus toxoid vaccine, inactivated; Translations: [tetanus toxoid] Drug Allergy Unknown (qualifier value) [facility] (1 source) Iodine Drug Allergy [facility] Repository (1 source) Iodine (And Iodine Containting Drugs) Drug allergy (disorder) [facility] Repository (1 source) Tetanus AND Diphtheria Tox,Adult Drug allergy (disorder) [facility] Repository (13 sources) Tetanus vaccine Drug allergy Unknown [facility] SendMe Other (3 sources) Iodinated Contrast Media Allergy to substance 07-02-19 23 [facility] Medications Current Medications Medication Drug Class(es) [...] Start: 02-11-2022 take 2 tablets by mo [facility] three times daily calcium (as [...] PO Daily February 23, 2019 1:00am Isosorbide [place] itrate Active isosorbide dinitrate 30 mg oral [...] Daily, # 30 tab(s), Refills(s) 6, Pharmacy: [facility]/pharmacy #[id number], 169, cm, 10/07/22 8:54:00 EDT, [...] for 30 day(s), 60 tab(s), Refill(s) 0, [facility]/pharmacy #[id number], 169, cm, 02/11/22 8:44:00 EST, [...] acid 7540 MG / polyethylene glycol 3350 58773 MG / potassium chloride 1200 MG / sodium ascorbate 47816 MG / sodium chloride 3200 MG Powder for Oral Solution) / 1 (polyethylene glycol 3350 627196 MG / potassium chloride 1000 MG / [...] Coronary arteriosclerosis; Translations: [Atherosclerotic heart disease of [place] coronary artery without angina pectoris] Onset: 11-14-2021 [...] 2 Episodic Other aftercare (1 source) Other usp (current) drug therapy; 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 Orders placed. Possible ESWL pending size of stones. No follow up at this time. Pt to be called with results. Called pt and reminded him to complete LINDSEY/KUB @ [facility] in the next month. 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/22 @ [facility] Comment on above: Result Comment: Miss ing Attachment - attachment exceeds size limitation (02/19/2023) RAD - Ultrasound Report Can be viewed in source system Missing Attachment - attachment exceeds size limitation (02/19/2023) RAD - MISC Can be viewed in source system RAD - MISCon 02-22-2023 RAD - MISC [id number]#[id number] [facility] RAD - Ultrasound Reporton RAD - Ultrasound Report [id number]#[id number] [facility] Screenson 01-14-2023 Screens [id number]#[id number] Normal [facility] Screens [id number] Normal [facility] Patient Educationon 01-14-20 23 Patient Education Urology [...] Follow these instructions at home: ? Take nvxz-reu-djvrvps and prescription medicines only as told by [...] the medicine (more content not included)... Normal [facility] Urology Office/Clinic Noteon 01-13-2023 Urology Office/Clinic [...] with voice recognition artificial intelligence software, specifically MOG, Bevvy and or CreationFlow. Substitutions may have occurred due to the [...] stones no (more content not included)... Normal [facility] Comment on above: Result Comment: Elec tronically Signed By: Ivelisse Hsasan MD\.br\Date and Time Signed: 01/13/23 16:25 EST\.br\Electronically Co-Signed By: Faviola Clemens\.br\Date and Time Co-Signed: 01/13/23 09:59 EST US carotid doppler BIon 09-0 US carotid doppler [facility] [place] [address] [place] [address] Ultrasound Report Signed Patient: Chico Baker MR#: [id number] 284 : 1940 Acct:[id number] Age/Sex: 82 / M ADM Date: 11/10/22 Loc: [facility] Room: Type: [facility] Attending Dr: Raul Quan MD Ordering [...] Raul Quan M.D.11/10/2022 10:30 AM Dictation Location: [place] [address] Tech: Harika Pradhan Transcribed By: ALEX 11/10/22 1030 Dictated By: Raul Quan MD 11/10/22 1029 Signed By: 11/10/22 1030 [facility] Screenson 10-08-2022 Screens [id number]:127 Normal [facility] Screens [id number]:127 Normal [facility] Ambulatory Visit Summaryon 0 10-07-2022 Ambulatory Visit Summary CHICO BAKER :1940 Visit Date:10/07/2022 Ambulatory Visit Instructions Your Diagnosis BPH with obstruction/lower urinary tract symptoms History of kidney stones Asymptomatic microscopic hematuria 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 Tests Performed Urnls Dip Stick Auto w/o Microscopy POC 29471 Your Care Team Attending Physician - Ivelisse [...] Ivelisse Hassan MD Where: [facility] Normal [facility] Patient Educationon 10-08-19 Patient Education Urology [...] Follow these instructions at home: ? Take uacm-klt-oigfsic and prescription medicines only as told by [...] the medicine (more content not included)... Normal [facility] Urology Office/Clinic Noteon 10-07-2022 Urology Office/Clinic [...] lower urinary tract symptoms) hx TURP by [facility] 2019, prostate small on 05/11/22 CT scan [...] neg, s (more content not included)... Normal [facility] Comment on above: Result Comment: Elec tronically Signed By: Mo LEIJA, Ivelisse Schreiber\.br\Date and Time Signed: 10/07/22 10:28 EDT\.br\Electronically Co-Signed By: Eleonora Belcher\.br\Date and Time Co-Signed: 10/07/22 09:25 EDT Consent for Procedure/Surger yon 07-29-2022 Consent for Procedure/Surgery [id number]:127 [facility] Patient Educationon 07-29-19 Patient Education Urology [...] these instructions at home: Medicines ? Take mtnj-eyo-rvfteps and prescription medicines only as told by [...] include cig (more content not included)... Normal [facility] Urology Office/Clinic Noteon 07-28-2022 Urology Office/Clinic [...] urine The Urethra was dilated to: 16-24 Yoruba with connor sounds without difficulty Soft 14 [...] (erectile d (more content not included)... Normal [facility] Comment on above: Result Comment: Elec tronically Signed By: Mo LEIJA, Ivelisse Schreiber\.br\Date and Time Signed: 07/28/22 10:49 EDT\.br\Electronically Co-Signed By: Clarissa Joaquin MA\.br\Date and Time Co-Signed: 07/28/22 10:28 EDT Activated Clotting Timeon Activated Clotting Time POC 335 s High 90-139 [facility] Comment on above: Result Comment: Refe rence Range: 90-139 (Non-heparinized) PERFORMED BY: [place] [address] PATHOLOGIST CARDIAC CATHETERIZATION TECHNOLOGIST ZENA CASTELLON M.D. Performed By: #### C BC, BMP #### [facility] [address] [place] [address] Activated Clotting Time POC 143 s High 90-139 [facility] Comment on above: Result Comment: Refe rence Range: 90-139 (Non-heparinized) PERFORMED BY: [place] [address] PATHOLOGIST CARDIAC CATHETERIZATION TECHNOLOGIST ZENA CASTELLON M.D. Performed By: #### C BC, BMP #### [facility] [address] [place] [address] Blood activated clotting sue e by coagulation assayOrdered By: Raul Quan on 07-08-2022 ACT Coag (Bld) 335 s 90-139 [facility] Comment on above: Reference Range: 90- 139 (Non-heparinized) Laboratory - CoagulationOrde red By: Raul Quan on 07-08-2022 PT Coag (PPP) [Time] 11.7 s 9.0-12.9 [facility] Platelet poor plasma interna tional normalized ratio (INR) by coagulation assay (relatOrdered By: Raul Quan on 07-08-2022 INR Coag (PPP) [Relative time] 1.0 {INR} [facility] Comment on above: INR Therapeutic Rang e [...] Coag (PPP) [Relative time] 1.0 {INR} Normal [facility] Comment on above: Result Comment: INR Therapeutic [...] heart valves: 3 - 4.5 PERFORMED BY: [place] [address] PATHOLOGIST CARDIAC CATHETERIZATION TECHNOLOGIST ZENA CASTELLON M.D. Performed By: #### C BC, BMP #### [facility] [address] [place], [place] [id number] [facility] PT Coag (PPP) [Time] 11.7 s Normal 9.0-12.9 [facility] Comment on above: Performed By: #### C BC, BMP #### [facility] [address] [place] [address] [place] Type and Screenon 07-08-2022 ABO and Rh group Nom (Bld) Blood group A Rh(D) positive Normal [facility] Comment on above: Result Comment: PERF ORMED BY: [place] [address] PATHOLOGIST CARDIAC CATHETERIZATION TECHNOLOGIST ZENA CASTELLON M.D. Alanine aminotransferase [En zymatic activity/volume] in Serum or PlasmaOrdered By: Raul Quan on 07-01-2022 ALT [Catalytic activity/Vol] 9 U/L 7-52 [facility] Albumin [Mass/volume] in Ser um or Plasma by Bromocresol green (BCG) dye binding methoOrdered By: Raul Quan on 07-01-2022 Albumin BCG dye [Mass/Vol] 3.7 g/dL 3.5-5.7 [facility] Alkaline phosphatase [Enzyma tic activity/volume] in Serum or PlasmaOrdered By: Raul Quan on 07-01-2022 ALP [Catalytic activity/Vol] 96 U/L 34-104 [facility] Aspartate aminotransferase [ Enzymatic activity/volume] in Serum or PlasmaOrdered By: Raul Quan on 07-01-2022 AST [Catalytic activity/Vol] 14 U/L 13-39 [facility] Basophils Auto (Bld) [#/Vol] Ordered By: Raul Dovermary ann on 07-01-2022 Basophils (Bld) [#/Vol] 0.1 10*3/uL 0.0-0.2 [facility] Basophils/100 WBC Auto (Bld) Ordered By: [facility] 07-01-2022 Basophils/100 WBC (Bld) 0.7 % . [facility] Bilirubin.total [Mass/volume ] in Serum or PlasmaOrdered By: Raul Dovermary ann on 07-01-2022 Bilirubin [Mass/Vol] 0.5 mg/dL 0.3-1.0 [facility] Calcium [Mass/volume] in Ser um or PlasmaOrdered By: Raul Quan on 07-01-2022 Calcium [Mass/Vol] 8.5 mg/dL 8.6-10.3 [facility] Carbon dioxide, total [Moles /volume] in Serum or PlasmaOrdered By: Raul [facility] on 07-01-2022 CO2 [Moles/Vol] 24.6 mmol/L 21.0-31.0 [facility] Chloride [Moles/volume] in S aisha or PlasmaOrdered By: Raul Dovermary ann on 07-01-2022 Chloride [Moles/Vol] 100 mmol/L 98-107 [facility] Complete Blood Count Auto Di ffon 07-01-2022 Basophils (Bld) [#/Vol] 0.1 10*3/uL Normal 0.0-0.2 [facility] Comment on above: Result Comment: PERF ORMED BY: [facility] [address] [place] [address] PATHOLOGIST CARDIAC CATHETERIZATION TECHNOLOGIST ZENA CASTELLON M.D. Performed By: #### C BC, CMP #### [facility] [address] Basophils/100 WBC (Bld) 0.7 % Normal . [facility] Comment on above: Performed By: #### C BC, CMP #### [address] Eosinophils (Bld) [#/Vol] 0.1 10*3/uL Normal 0.0-0.45 [facility] Comment on above: Performed By: #### C BC, CMP #### [address] Eosinophils/100 WBC (Bld) 1.5 % Normal . [facility] Comment on above: Performed By: #### C BC, CMP #### [address] Erythrocyte distribution width (RBC) [Ratio] 13.0 % Normal 12.0-14.8 [facility] Comment on above: Performed By: #### C BC, CMP #### [address] Hematocrit (Bld) [Volume fraction] 36.4 % Low 38.8-50.0 [facility] Comment on above: Performed By: #### C BC, CMP #### [address] Hemoglobin (Bld) [Mass/Vol] 12.1 g/dL Low 13.0-17.0 [facility] Comment on above: Performed By: #### C BC, CMP #### [address] Lymphocytes (Bld) [#/Vol] 1.6 10*3/uL Normal 1.00-4.8 [facility] Comment on above: Performed By: #### C BC, CMP #### [address] Lymphocytes/100 WBC (Bld) 19.3 % Normal . [facility] Comment on above: Performed By: #### C BC, CMP #### [address] MCH (RBC) [Entitic mass] 30.2 pg Normal 27.5-35.2 [facility] Comment on above: Performed By: #### C BC, CMP #### [address] MCV (RBC) [Entitic vol] 90.7 fL Normal 83.5-101 [facility] Comment on above: Performed By: #### C BC, CMP #### [address] Mean Corpuscular HGB Conc 33.3 g/dL Normal 32.5-35.6 [facility] Comment on above: Performed By: #### C BC, CMP #### [address] Monocytes (Bld) [#/Vol] 0.9 10*3/uL High 0.0-0.8 [facility] Comment on above: Performed By: #### C BC, CMP #### [address] Monocytes/100 WBC (Bld) 11.1 % Normal . [facility] Comment on above: Performed By: #### C BC, CMP #### [address] Neutrophils (Bld) [#/Vol] 5.7 10*3/uL Normal 1.8-7.7 [facility] Comment on above: Performed By: #### C BC, CMP #### [address] Neutrophils/100 WBC (Bld) 67.4 % Normal . [facility] Comment on above: Performed By: #### C BC, CMP #### [address] NRBC% 0.0 /100{WBC} Normal 0-0.5 [facility] Comment on above: Performed By: #### C BC, CMP #### [address] Platelet mean volume (Bld) [Entitic vol] 7.6 fL Normal 6.6-10.1 [facility] Comment on above: Performed By: #### C BC, CMP #### [address] Platelets (Bld) [#/Vol] 198 10*3/uL Normal 150-450 [facility] Comment on above: Performed By: #### C BC, CMP #### [address] RBC (Bld) [#/Vol] 4.01 10*6/uL Normal 3.90-5.60 [facility] Comment on above: Performed By: #### C BC, CMP #### [address] WBC (Bld) [#/Vol] 8.5 10*3/uL Normal 4.1-10.5 [facility] Comment on above: Performed By: #### C BC, CMP #### [address] Comprehensive Metabolic Pane santo 07-01-2022 Albumin [Mass/Vol] 3.7 g/dL Normal 3.5-5.7 [facility] Comment on above: Performed By: #### C BC, CMP #### [address] Albumin/Globulin [Mass ratio] 1.1 {ratio} Normal [facility] Comment on above: Performed By: #### C BC, CMP #### [address] ALP [Catalytic activity/Vol] 96 U/L Normal 34-104 [facility] Comment on above: Result Comment: PERF ORMED BY: [place] [address] PATHOLOGIST CARDIAC CATHETERIZATION TECHNOLOGIST ZENA CASTELLON M.D. Performed By: #### C BC, CMP #### [address] ALT [Catalytic activity/Vol] 9 U/L Normal 7-52 [facility] Comment on above: Performed By: #### C BC, CMP #### [facility] [address] [place] [id number] [place] Anion gap [Moles/Vol] 13.8 mmol/L Normal 6.0-15.0 [facility] Comment on above: Performed By: #### C BC, CMP #### [facility] [address] [place] [id number] [place] AST [Catalytic activity/Vol] 14 U/L Normal 13-39 [facility] Comment on above: Performed By: #### C BC, CMP #### [facility] [address] [place] [id number] [place] Bilirubin [Mass/Vol] 0.5 mg/dL Normal 0.3-1.0 [facility] Comment on above: Performed By: #### C BC, CMP #### [facility] [address] [place] [id number] [place] Calcium [Mass/Vol] 8.5 mg/dL Low 8.6-10.3 [facility] Comment on above: Performed By: #### C BC, CMP #### [facility] [address] [place] [id number] [place] Chloride [Moles/Vol] 100 mmol/L Normal 98-107 [facility] Comment on above: Performed By: #### C BC, CMP #### [facility] [address] [place] [id number] [place] CO2 [Moles/Vol] 24.6 mmol/L Normal 21.0-31.0 [facility] Comment on above: Performed By: #### C BC, CMP #### [facility] [address] [place] [id number] [place] Creatinine [Mass/Vol] 0.87 mg/dL Normal 0.70-1.30 [facility] Comment on above: Performed By: #### C BC, CMP #### [facility] [address] [place] [id number] [place] GFR/1.73 sq M.predicted MDRD (S/P/Bld) [Vol rate/Area] mL/min/{1.73_m2} Normal [facility] Comment on above: Performed By: #### C BC, CMP #### [facility] [address] [place] [address] [place] Globulin (S) [Mass/Vol] 3.4 g/dL Normal [facility] Comment on above: Performed By: #### C BC, CMP #### [facility] [address] Glucose [Mass/Vol] 163 mg/dL High 70-100 [facility] Comment on above: Result Comment: [facility] Glucose Reference Range is dependent on time and content of last meal. Glucose of more than 200 mg/dL in a nonstressed, ambulatory subject supports the diagnosis of Diabetes Mellitus. ADA recommended reference range Performed By: #### C BC, CMP #### [facility] [address] Potassium [Moles/Vol] 4.4 mmol/L Normal 3.5-5.1 [facility] Comment on above: Performed By: #### C BC, CMP #### [facility] [address] [place] [address] [place] Protein [Mass/Vol] 7.1 g/dL Normal 6.4-8.9 [facility] Comment on above: Performed By: #### C BC, CMP #### [facility] [address] [place] [address] [place] Sodium [Moles/Vol] 134 mmol/L Low 136-145 [facility] Comment on above: Performed By: #### C BC, CMP #### [facility] [address] [place] [address] [place] Urea nitrogen [Mass/Vol] 17 mg/dL Normal 7-25 [facility] Comment on above: Performed By: #### C BC, CMP #### [place] [address] [place] Creatinine [Mass/volume] in Serum or PlasmaOrdered By: Raul Quan on 07-01-2022 Creatinine [Mass/Vol] 0.87 mg/dL 0.70-1.30 [facility] ECG 12 lead ECGon 07-01-2022 ECG 12 lead ECG [facility] [place] [address] Electrocardiograph Report Signed Patient: Chico Baker MR#: [id number] 284 : 1940 Acct:[id number] Age/Sex: 82 / M ADM Date: 07/01/22 Loc: Room: Type: [facility] Attending Dr: Raul Quan MD Ordering Provider: [...] By Rosanne Shabazz DO 07/03 0637 Normal [facility] Eosinophils Auto (Bld) [#/Vo l]Ordered By: Raul Quan on 07-01-2022 Eosinophils (Bld) [#/Vol] 0.1 10*3/uL 0.0-0.45 [facility] Eosinophils/100 WBC Auto (Bl d)Ordered By: Raul Quan on 07-01-2022 Eosinophils/100 WBC (Bld) 1.5 % . [facility] Erythrocyte distribution wid th Auto (RBC) [Ratio]Ordered By: Raul Quan on 07-01-2022 Erythrocyte distribution width (RBC) [Ratio] 13.0 % 12.0-14.8 [facility] Globulin Calc (S) [Mass/Vol] Ordered By: Raul Quan on 07-01-2022 Globulin (S) [Mass/Vol] 3.4 g/dL [facility] Glucose [Mass/volume] in Ser um or PlasmaOrdered By: Raul Quan on 07-01-2022 Glucose [Mass/Vol] 163 mg/dL 70-100 [facility] Comment on above: ADA recommended refe rence rangeRandom Glucose Reference Range is dependent on time and content of last meal. Glucose of more than 200 mg/dL in a nonstressed, ambulatory subject supports the diagnosis of Diabetes Mellitus. Hematocrit Auto (Bld) [Volum e fraction]Ordered By: Raul Quan on 07-01-2022 Hematocrit (Bld) [Volume fraction] 36.4 % 38.8-50.0 [facility] Hemoglobin [Mass/volume] in BloodOrdered By: Raul Quan on 07-01-2022 Hemoglobin (Bld) [Mass/Vol] 12.1 g/dL 13.0-17.0 [facility] Leukocytes [#/volume] correc shyann for nucleated erythrocytes in Blood by Automated counOrdered By: Raul Quan on 07-01-2022 WBC corrected for nucl RBC Auto (Bld) [#/Vol] 8.5 10*3/uL 4.1-10.5 [facility] Lymphocytes Auto (Bld) [#/Vo l]Ordered By: Raul Quan on 07-01-2022 Lymphocytes (Bld) [#/Vol] 1.6 10*3/uL 1.00-4.8 [facility] Lymphocytes/100 WBC Auto (Bl d)Ordered By: Raul Quan on 07-01-2022 Lymphocytes/100 WBC (Bld) 19.3 % . [facility] MCH Auto (RBC) [Entitic mass ]Ordered By: Raul Quan on 07-01-2022 MCH (RBC) [Entitic mass] 30.2 pg 27.5-35.2 [facility] MCHC Auto (RBC) [Mass/Vol]Or dered By: Raul Quan on 07-01-2022 MCHC (RBC) [Mass/Vol] 33.3 g/dL 32.5-35.6 [facility] MCV Auto (RBC) [Entitic vol] Ordered By: Raul Quan on 07-01-2022 MCV (RBC) [Entitic vol] 90.7 fL 83.5-101 [facility] Monocytes Auto (Bld) [#/Vol] Ordered By: Raul Quan on 07-01-2022 Monocytes (Bld) [#/Vol] 0.9 10*3/uL 0.0-0.8 [facility] Monocytes/100 WBC Auto (Bld) Ordered By: Raul Quan on 07-01-2022 Monocytes/100 WBC (Bld) 11.1 % . [facility] Neutrophils Auto (Bld) [#/Vo l]Ordered By: Raul Quan on 07-01-2022 Neutrophils (Bld) [#/Vol] 5.7 10*3/uL 1.8-7.7 [facility] Neutrophils/100 WBC Auto (Bl d)Ordered By: Raul Quan on 07-01-2022 Neutrophils/100 WBC (Bld) 67.4 % . [facility] No Panel InformationOrdered By: Raul Quan on 07-01-2022 Estimated GFR (CKD-EPI) > 60.0 mL/Min [facility] Creatinine Clearance (Chem N/A [facility] Nucleated erythrocytes [Pres ence] in Blood by Automated countOrdered By: Raul Quan on 07-01-2022 Nucleated RBC Auto Ql (Bld) 0.0 /100{WBC} 0-0.5 [facility] Platelet mean volume Auto (B ld) [Entitic vol]Ordered By: Raul Quan on 07-01-2022 Platelet mean volume (Bld) [Entitic vol] 7.6 fL 6.6-10.1 [facility] Platelets Auto (Bld) [#/Vol] Ordered By: Raul Quan on 07-01-2022 Platelets (Bld) [#/Vol] 198 10*3/uL 150-450 [facility] Potassium [Moles/volume] in Serum or PlasmaOrdered By: Raul Quan on 07-01-2022 Potassium [Moles/Vol] 4.4 mmol/L 3.5-5.1 [facility] Protein [Mass/volume] in Ser um or PlasmaOrdered By: Raul Quan on 07-01-2022 Protein [Mass/Vol] 7.1 g/dL 6.4-8.9 [facility] RBC Auto (Bld) [#/Vol]Ordere d By: Raul Quan on 07-01-2022 RBC (Bld) [#/Vol] 4.01 10*6/uL 3.90-5.60 [facility] Serum or plasma albumin/glob ulin mass ratioOrdered By: Raul Quan on 07-01-2022 Albumin/Globulin [Mass ratio] 1.1 {ratio} [facility] Serum or plasma anion gap de terminationOrdered By: Raul Quan on 07-01-2022 Anion gap [Moles/Vol] 13.8 mmol/L 6.0-15.0 [facility] Sodium [Moles/volume] in Ser um or PlasmaOrdered By: Raul Quan on 07-01-2022 Sodium [Moles/Vol] 134 mmol/L 136-145 [facility] Urea nitrogen [Mass/volume] in Serum or PlasmaOrdered By: Raul Quan on 07-01-2022 Urea nitrogen [Mass/Vol] 17 mg/dL 7-25 [facility] WBC Auto (Bld) [#/Vol]Ordere d By: Raul Quan on 07-01-2022 WBC (Bld) [#/Vol] 8.5 10*3/uL 4.1-10.5 [facility] Patient Educationon 06-25-19 Patient Education Urology [...] these instructions at home: Medicines ? Take ewzv-hvc-eqkjkab and prescription medicines only as told by [...] the blood stops without treatment. ? Take rvkp-cgm-hiuovpp and prescription medicines only as told by your health care provider. ? Drink enough fluid to keep your urine pale yellow. This information is not intended to replace advice given to you by your health care provider. Make sure you discuss any questions you have with your health care provider. Document Revised: 10/23/2020 Document Reviewed: 10/23/2020 [employer] Patient Education ? 2022 [employer]. Normal [facility] Screenson 06-24-2022 Screens [id number]#1.00CD:127 [facility] Screens [id number]#1.00CD:127 [facility] Urology Office/Clinic Noteon 06-24-2022 Urology Office/Clinic [...] Urnls Dip Stick Auto w/o Microscopy POC 02196 Urology Procedure Order 4. Penile rash (R21: Rash and other nonspecific skin eruption) Pt states rash has completely cleared up after stopping Bactrim. Denies irritation. Head of penis is not red, but is discolored. Not bothersome. D/c use of cream. Resolved Ordered: Urology Procedure Order 5. ED (erectile dysfunction) (N52.9: Male erectile dysfunction, unspecified) (more content not included)... Normal [facility] Comment on above: Result Comment: Elec tronically Signed By: Mo LEIJA, Ivelisse Schreiber\.br\Date and Time Signed: 06/24/22 10:24 EDT RAD - CT Reporton 05-15-2022 RAD - CT Report [id number]#1.00CD:127 Normal [facility] RAD - CT Reporton 05-14-2022 RAD - CT Report [id number]#1.00CD:127 Normal [facility] RAD - CT Report [id number]#1.00CD:127 Normal [facility] CT angio abdomen pelvison CT angio abdomen pelvis [facility] [place] [address] [place] [address] CT Scan Report Signed Patient: Chico Baker MR#: [id number] 284 : 1940 Acct:[id number] Age/Sex: 81 / M ADM Date: 05/11/22 Loc: CT Room: Type: [facility] Attending Dr: Raul Quan MD Copies [...] The graft appears to be patent. The quechan aneurysmal sac appears mildly decreased in size [...] Payan Jr., D.OSilvestre05/11/2022 3:58 PM Dictation Location: [place] [address] Transcribed By: [facility] 05/11/22 1558 Dictated By: Woody Payan Jr, DO 05/11/22 1551 Signed By: 05/11/22 1558 Normal [facility] CT angio neckon 05-11-2022 CT angio neck [facility] Main [place] [address] [place] [address] CT Scan Report Signed Patient: Chico Baker MR#: [id number] 284 : 1940 Acct:[id number] Age/Sex: 81 / M ADM Date: 05/11/22 Loc: CT Room: Type: [facility] Attending Dr: Raul Quan MD Copies to: Raul Quan MD Ordering Provider: Raul Quan MD Date of Service: 05/11/22 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, I71.4 ([id number]) CT/CT angio head: I65.23, I71.4 CTA head [...] Raul Solo M.D.05/11/2022 5:04 PM Dictation Location: [place] [address] Transcribed By: [facility] 05/11/22 170 Dictated By: Raul Solo DO 05/11/22 1648 Signed By: 05/11/22 1704 [facility] Creatinine (Bld) [Mass/Vol]O rdered By: Raul Quan on 05-11-2022 Creatinine [Mass/Vol] 0.9 mg/dL 0.6-1.3 [facility] Comment on above: ER/ESD physician is notified/shown all ISTAT results.Critical values may be confirmed by laboratory testing ifdeemed necessary by ER attending doctor. ISTAT XRay CREon 05-11-2022 Creatinine [Mass/Vol] 0.9 mg/dL Normal 0.6-1.3 [facility] Comment on above: Result Comment: ER/E SD physician is notified/shown all ISTAT results. Critical values may be confirmed by laboratory testing if deemed necessary by ER attending doctor. Performed By: #### C BC, BMP #### [facility] [address] [place] [address] [place] ISTAT GFR ( > 60 Normal [facility] Comment on above: Result Comment: GFR estimated reference range: According to KDOQI guidelines, <60 ml/min/1.73m2 is sufficient to diagnose a patient with chronic kidney disease. PERFORMED BY: [place] [address] PATHOLOGIST CARDIAC CATHETERIZATION TECHNOLOGIST ZENA CASTELLON M.D. Performed By: #### C BC, BMP #### [facility] [address] [place] [address] [place] ISTAT GFR (Non- Am > 60 Normal [facility] Comment on above: Performed By: #### C BC, BMP #### [facility] [address] No Panel InformationOrdered By: Raul Quan on 05-11-2022 POC Estimated GFR > 60 [facility] Comment on above: GFR estimated refere nce range: According to KDOQI guidelines, <60 ml/min/1.73m2 is sufficient to diagnose a patient with chronic kidney disease. POC Estimated GFR Non- Amer > 60 [facility] Coding Summary.on 04-20-2022 Coding Summary. CD:[id number] Gh0bWw +PGhlYWQ+TE2DMRYhW37plAFia A3EA4yYGI4YJAOHYKXRFW2OEM2 rjJW6DHtwZ2SewuVr KhnqkYOgHH44ZBz8LQC0bMskLR arrW0isMTuS0c3NeGbRQ80xB65 WDwpMSJxVkB4TeKlhyptuKBb R2stCfEbpJNvJrb+PHRhYmxlIH qdLIAqHBthERKwYdIkjVxaED0w Ii5kVYYdLXYwdZggvWTvEgLd a4bkDOUlGWkyWR8oxDrmF5VchI S7XSBfu9i3Nq84vNO+PHRkIHN0 dLnaVWtcg567IdJur2nmFWO5 iIBhPUzwMHR4M12gi0T8HMFxVH DkIGN7pKB4bI2ggJlotnegE1Vt dXKxMwP0LQN5cMYzlK0esMyd awktcM1kFme+E07ZNY5BWMTOHM 1GFgb0I1UvUitftTA+EY34IMBs OH57wMFeqVCzk2ueeSf0CrAd KVMgVYN0wRngJImwd2IiJAHyO6 2esOPbw1X3WVBbuBedlCNiYhVp tDE1hM3zKQjiqyluy7ogsmbm Kmiry7idtd51xU59Q83uYMgoXK PtNVP1JMCkFWHsgMevvm7pcH3g Ii8+CAzcz5kho5umiCn4IqBa DQCkcqTblHouTDS7q2WzCj53V3 VtpPhkc4ZrHye3ts02pNNec3L3 oHZ2ERrnJETmcN7bAMlaApH7 WQDsXlTcbP50nRNnJXxiDa8ceV qnmMgpTA2aHGObnbyxFLRbsG1t XYSezGGguGqtUQ9vYTPwmrkv c186XgFjPFD9ZYMuqHPyV4UtxK 5pMsPgHRGoGJZbE0IirAAzSExo R324TCntQwL1EPQpuhDnM2Fl VFEtyEzfCoS2c8G3Cg8Xo7Rofj teCFP8JGkmVXZrYdPhJqLsUkW5 E5QoOlw6IHIkqMxwDB0rQ0Ka CWOkjzmhwxpufDA8NNDqXKCnuZ 67zQPiAGufHa0nd4R7u255HBKm VOOpqT16Ul1iqCnlERRsmYRM hK4nwrqur4ffotqhObDbQCIkAI v7WEv3WQJnuJrhKqRvIHL5LoT6 EMF9oBJvjP9thHowioykvY1p Oyc+V84ieQ5mUAM2AIF7ochjWS RinnBxUY85AK22K7NbPmxkmMNe bGU+AQUwzvCgaLokYQ7iIqVh t7kxk9LiXJkdT9XdBFXjEFrcBf c7RITjTFB0nRT4oT5lRAUiRAjm n1I3eNS6N2IinvYwvq2kt5on XLIrTAifM70nlDXkx6V6WPVahI N7SRQsyWrxRtNhcA60Hgw+PGNv bUntz9ZjSqxip7omp6hugGy6 JeViJRBkbyNmgBvbACO9s2EbOh 45E49kTMibCYIiGVTwARDdRVRr xZmlzf7upV8tDi1+PGNvbCB3 zAV5tT0wNSNoKiY4GCklN301Qx RqzJZmPqhvu1trr0oeqDh1YkPe MOHhgwEifKjrBDU1p3UkPn26 T39jOQtzCGBjBXIiGTEdQMHlpR vibm3tzH6fHx2+UC7fx0ptyo70 uC96kSX+HIReLKO2aGtbYJlj MMJnvM1uYWpfCsH5BQZfUpXdyQ 95mOCzHQayUt0ziFmcwVoxBS5z QMEfylvdg586TsVkj0wmJBFv lPOiOYqcHJH9Q97of6T8UJNpHY MiKYR2mXV2pI9oyIbvlattmVSt fWoflbVacKdhAMoxDErbA259 IHRvcDsnPlBhdGllbnQgTmFtZT e8W7FeSfq9NBEmcXstWD5epFGi SEfpRf0dnPaheIyiGA8iTFMg pocoy788QjUob3iwJEHonJEiEW bxUHY3Q84at3F3NSDsXZQeIOY5 fGK4yH1zyIwipzxrkXJdxDkf wwTkjMjzGGnbLZouI786GXXxoG wcLyJcgcLnRCNegAY4KX55XR96 rZFeq8M3qYP4N8MqTZPskmvz bzstjFS7GDDiGBQvcF76Kn7unW syUs9pECFyMTP2MZUgqIOgN5Nh kS0hJrEyKUCsEVDsS8QgnLHt FOzdH640FNehRyO1NHJatpHzZ9 XcLOWisGglQfE8w1O6Pf8GE0S7 AI83FO65cSFch9I0pZZ3H0Dh EPHivepdxjshySP5NVYnBGVapY 24If0xkYojJx6lSOFwRHU7NUVm bQGdZ9TjrW4lMiWcDTQgQKNl B7HnyUOxXFwwN492NYqxSfS6RE RdidWzM8ToHADspGivSiF6c5J8 Ip2SRUn8QI49MY70oHQbt4M4 rOC3W4DkYFCnkucwjoitnHX2EN DxWQEshR19Ez9ujUjgKd7eAMAz GPD1EGHkpLJqX2RfpM9yJgTk ELEzAGYhZ2OioIGaBGjzG088VX cwUtP7XOFhdtGyL0WgEPIeuUcn YrN2h9Z0Hc7LEZCzDM00WSV8 wAX8JQ55HG66K8PaLrakoYDsdA U+PHRhYmxlIHdpZHRoPScxMDAl GqZibSgwFF0wKc3gIBGlIBNb aOqfvFZaHkDsa1yrQJVuXRnaBM 4iaBxcA8OygZR6IJOhf6j7Lu10 N62hZ5BciJD+JHZfmQN9hSG6 fF2lAcRbRyW5TQvvW824UpNsrM IuNzqkj8kqv6rtzMz3GnD7SVRt woAoaTduQDD5x0LbGn62U92c IHdpZHRoPSIxNSUiIHZhbGlnbj 5oyN8yTl2+PXSuxFN6oMF0fS6n NcPbVzH7ARovP165BzVhrDSz Qjyqf1mas3jltRo1DnFnIXGmax RgwUfsLQB8a9MwUv76N5KglGex q2DpVon5pn17zMIrx5E9uYO4 L6DuQBGhvafqxBWzsKyxMA7mIA VuiklbXSRdyT2wVWPaC9l9DzHz KvQ8DKkyY8JzjyH6RTBbnXUh XUcoAQW5B43ys5X1IZRrHZPeJB R3hXV0mX5bgDxtdbwqlMNbiRkv axCtrZcvHSchCYulP548WJFi hTjwPOKgiE8zZUAikJHjkBveMH 7rAOHdsxtpEz3WHE9GUCNKYGWJ FLXWQSc7U6WrWgv3XQLaqDpq LX0ziBJeYOghFg9zeWmvpQtzFI 3bMQDofxgbMXOaiV7fXRNxyJUa sZjyGG6gACKgxnozz405HbJu ITK4SPNmaSLyJ5AwhP2rMvPbJT RjCFRvE6CvyAZbCQhsB575JFol ZdF0QPVvnzLpH8IoJXCfzBmc FqR1g0V3Bj5jXY6xED8jWTCwST 40OH86yFUwk7E3nIG2A5ZnWFXf omqsrnmskQF5XGZsPQYxmD29 vTZwRPxuLf1vj9Q1v102JOBsGS DptO26Qr1osFewIUKkfMWDbG2q dvhwo1wvurgvEsXmHZFoVXg1 AAo3GAGsxYqqZoJjXCC2DsZ8PK V3oDPqtP4ztKxdaoyjtG5yTos+ IfqsACZmuiV1T5ObRzm7UXFz kOjfZH9ytAEsATkaAg8vkPnehQ xaRD4hIYXdutwkLUQwlM1rXMIo jYDwkXjzUA6sAKWnxylqf494 EkXuVIH7AHMkjUAgC9HxaY6pMh ZmGUEjHGDsF4VbxNRmMExlL556 YXibGsE6GAGjsfYkF5GjFXQa sFugDjQ5n1C9Yu7JKTitCM79RX 65fIGrq1M0kZN6X8FeBFLbzkkl acvkxQE9OUDoPEIvtV11iQUl MPcfWc7rd8D6a344MLCaNABeeH 98Fa6xwAnnMMIndYRWaV1qpmyc j4wlolnoIcPdBXUuQHp7TAn1 WEHduIwvRoGwPPI6YgC4MCX8vB XimK7oiMmimalncS2pFni+TGFi EWBjj3Mgm9UjNU85YZ95I8Lp PjwvdGFibGU+PHRhYmxlIHdpZH LfPLmvHALmWcXblKogLW4tQp4z SSAeLRWpuLvjtTMjZyCqn0cb XKYtWAgzFJ9zlZnyM1BrvKT4BG Qfx9x8Tl85V63tY5UdcGV+PGNv xKZ3uTO7xK7vJyNhMpT6NPjr Y850MqShmSUiPtypa4kcl8qvpY q3AyGeXKVqlpXjfIlpJQR2x3Vb Qy01R02rLSqnTPQlBUUrFBAv OMXrqGccmr0kkG1vZp7+PGNvbC W7qKO9hP6zUxNaHlD0HXdgD707 VdUfkZYgYtdpG21jQ5TeoQK+ VVPiJhc1ITNzrQonZF0bzIGbDK onZf8jPDW5EwZtIyGxIFylG5Wj KHShjpjacpqxcMO7RJMmUMYn gF35Qh0ciQmzNz4gQZEtXAK2VC MmvAFoB2EabT2nNoJmWSHlTBOg A8QdsSRlNTciE548XLsdMnN9 XBVrxmMoI6IoTKTplDnbYnK9s2 K1Nm1UtNoqkHLkXW1dWcUdHMy2 Q1LfViu9KXOorOcqHD9hgIFf UMgsEv5qyPqgxCghRF3hTVKdon dde099MbLqv8eoMEWffNWzOAty UPS9X96bd6Y7DERvQBDiTTK2 qVH7sX9euSodbygzjDUcdAfisd JnoBwfBYpzGCmiN136FJNstEdn XoPYXrr0R6AhUzj5IYVbcUka HP4moYFwDXjoQw1gyZnvvUlqKN 7nJEAzvbfps385TsCqu4knXYLj gWUlUXqoNAB0X45sa7R0MJLc DMNjLKP1oQK1lV9sxHrqistnkJ CrkPespcDtlQhwEAciCGreF900 GNWwwMpfGe9DYnk2V1SqOzx6 FHBeoOopTL2ocQTcAKneLs8loU hjmBbxWB4nIQAolebok759NrYz n6dtEMZnwSDnCTpjOVR1J84m i9E0KBXmJUGrPGD9hNZ7jQ9vuE lnbjogbGVmdDsgdmVydGljYWwt ZMvtJ397RSTkaDceBkCtfJPl OjwvdGQ+NZ31dv52D7CnRqkzZh f4KYWvELT0kTY5fQ2wNRPxNCys x0K7fQY3E1EyciZxmz1kc5bd YXBz (more content not included)... Normal [facility] Screenson 04-16-2022 Screens [id number]#[id number]:127 Normal [facility] Screens [id number]#1.00CD:127 Normal [facility] Ambulatory Visit Summaryon 0 04-15-2022 Ambulatory Visit Summary CHICO BAKER :1940 Visit Date:04/15/2022 Ambulatory Visit Instructions Your Diagnosis Penile rash Prostatitis Microhematuria BPH with obstruction/lower urinary tract symptoms History of kidney stones Tests Performed Urnls Dip Stick Auto w/o Microscopy POC [address] CT Abdomen/Pelvis w/o Contrast -- Results Pending -- Please visit your patient portal for your results or contact your primary care physician. Your Care Team Attending Physician - Ivelisse aHssan MD Primary Care Physician - SHAILESH DUNHAM [...] Ivelisse Hassan MD Where: [facility] Patient Educationon 04-15-19 23 Patient [...] Follow these instructions at home: ? Take vtrr-iuy-ynccavk and prescription medicines only as told by [...] 05/07/2018 Docum (more content not included)... Normal [facility] URINALYSISOrdered By: Kirstie sanchez on 04-15-2022 Bacteria LM Ql (Urine sed) Trace /HPF Normal Trace/HPF [facility] UA Auto SS Bilirubin Ql (U) Negative (04/15/22 12:14 PM) Normal Negative [facility] UA Auto SS Calcium oxalate crystals LM [...] Interpretation Code Negative [facility] UA Auto SS Fairplay.plasma/Fairplay .RBC (Bld) [Mass ratio] 21-30 /HPF Invalid [...] [facility] UA Auto SS Urobilinogen Qn (U) 0.9020395 {Nikki'U}/dL Normal 0.0 - 1.0 EU/dL [facility] UA Auto SS WBC Auto Ql (U) 1+ *ABN* (04/15/22 12:14 PM) Invalid Interpretation Code Negative [facility] UA Auto SS WBC LM.HPF (Urine sed) [#/Area] 0-5 /HPF Normal 0-5/HPF [facility] UA Auto SS Urinalysison 04-15-2022 Bacteria LM Ql (Urine sed) TRACE Normal Trace [facility] Comment on above: Performed By: #### 1 [id number] ####[facility] [address] [place] [address] Bilirubin Ql (U) Negative Normal Negative [facility] Comment on above: Performed By: #### 1 [id number] ####[facility] [address] [place] [address] Calcium oxalate crystals LM Ql (Urine sed) Present Normal [facility] Comment on above: Performed By: #### 1 [id number] ####[facility] [address] [place] [address] Clarity (U) CLEAR Normal Clear [facility] Comment on above: Performed By: #### 1 [id number] ####[address] [place] [address] Color (U) YELLOW Normal Yellow [facility] Comment on above: Performed By: #### 1 [id number] ####[address] [address] Epithelial cells.squamous LM.HPF (Urine sed) [#/Area] 0-2 Normal 0-2 [facility] Comment on above: Performed By: #### 1 [id number] ####[facility] [address] [place] [address] Glucose Test strip (U) [Mass/Vol] Negative Normal Negative [facility] Comment on above: Performed By: #### 1 [id number] ####[facility] [address] [place] [address] Hemoglobin Ql (U) 3+ Abnormal Negative [facility] Comment on above: Performed By: #### 1 [id number] ####[address] [address] Ketones (U) [Mass/Vol] TRACE Abnormal Negative [facility] Comment on above: Performed By: #### 1 [id number] ####[address] [address] [place]play.plasma/Fairplay .RBC (Bld) [Mass ratio] 21-30 Abnormal 0-3 [facility] Comment on above: Performed By: #### 1 [id number] ####[facility] [address] [place] [address] Mucus Ql (Urine sed) TRACE Normal Fish [facility] Comment on above: Performed By: #### 1 [id number] ####[address] [address] Nitrite Ql (U) Negative Normal Negative [facility] Comment on above: Performed By: #### 1 [id number] ####[address] [address] pH (U) 6.0 [pH] Invalid Interpretation Code 5.0-9.0 [facility] Comment on above: Performed By: #### 1 [id number] ####[address] [address] Protein (U) [Mass/Vol] Negative Normal Negative [facility] Comment on above: Performed By: #### 1 [id number] ####[address] [address] Specific gravity (U) [Rel density] >=1.030 Invalid Interpretation Code 1.005-1.030 [facility] Comment on above: Performed By: #### 1 [id number] ####[address] [address] Type of Urine collection method Random Urine Normal [facility] Comment on above: Performed By: #### 1 [id number] ####[address] [address] Urobilinogen Qn (U) 0.2 {Nikki'U}/dL Normal 0.0-1.0 [facility] Comment on above: Performed By: #### 1 [id number] ####[address] [address] WBC Auto Ql (U) 1+ Abnormal Negative [facility] Comment on above: Performed By: #### 1 [id number] ####[facility] [place] [address] WBC LM.HPF (Urine sed) [#/Area] 0-5 Normal 0-5 [facility] Comment on above: Performed By: #### 1 [id number] ####[facility] [address] [place] [address] Urology Office/Clinic Noteon 04-15-2022 Urology Office/Clinic Note [...] allergy prep. Pt having scan done at [facility] in May for aneurysm, will give pt [...] Medical Histo (more content not included)... Normal [facility] Comment on above: Result Comment: Elec [...] Interpretation Code Negative [facility] UA Auto SS Fair[place].plasma/[place]play .RBC (Bld) [Mass ratio] 4-20 /HPF Normal [...] [facility] UA Auto SS Urobilinogen Qn (U) 0.6543761 {Nikki'U}/dL Normal 0.0 - 1.0 EU/dL [facility] UA Auto SS WBC Auto Ql (U) 1+ *ABN* (02/11/22 10:38 AM) Invalid Interpretation Code Negative [facility] UA Auto SS WBC LM.HPF (Urine sed) [#/Area] 0-5 /HPF Normal 0-5/HPF [facility] UA Auto SS Basic Metabolic Panelon 12-0 Anion gap [Moles/Vol] 10.4 mmol/L Normal 6.0-15.0 [facility] Comment on above: Performed By: #### C BC, BMP #### [facility] [address] Calcium [Mass/Vol] 8.4 mg/dL Normal 8.2-10.2 [facility] Comment on above: Performed By: #### C BC, BMP #### [facility] [address] Chloride [Moles/Vol] 101 mmol/L Normal 95-114 [facility] Comment on above: Performed By: #### C BC, BMP #### [facility] [address] CO2 [Moles/Vol] 28.2 mmol/L Normal 22.0-30.0 [facility] Comment on above: Performed By: #### C BC, BMP #### [address] Creatinine [Mass/Vol] 0.94 mg/dL Normal 0.64-1.27 [facility] Comment on above: Performed By: #### C BC, BMP #### [place] [address] [place] Creatinine Clr Calc Pharmacy 57.50 [facility] Comment on above: Result Comment: PERF ORMED BY: [place] [address] PATHOLOGIST CARDIAC CATHETERIZATION TECHNOLOGIST ZENA CASTELLON M.D. Performed By: #### C BC, BMP #### [address] Estimated GFR ( Jojo > 60 [facility] Comment on above: Result Comment: GFR estimated reference range: According to KDOQI guidelines, <60 ml/min/1.73m2 is sufficient to diagnose a patient with chronic kidney disease. Performed By: #### C BC, BMP #### [place] [address] [place] Estimated GFR (Non- Am > 60 [facility] Comment on above: Performed By: #### C BC, BMP #### [place] [address] [place] Glucose [Mass/Vol] 109 mg/dL High 70-100 [facility] Comment on above: Result Comment: [facility] Glucose Reference Range is dependent on time and content of last meal. Glucose of more than 200 mg/dL in a nonstressed, ambulatory subject supports the diagnosis of Diabetes Mellitus. ADA recommended reference range Performed By: #### C BC, BMP #### [facility] [address] Potassium [Moles/Vol] 4.6 mmol/L Normal 3.5-5.1 [facility] Comment on above: Performed By: #### C BC, BMP #### [facility] [address] Sodium [Moles/Vol] 135 mmol/L Low 136-146 [facility] Comment on above: Performed By: #### C BC, BMP #### [facility] [address] Urea nitrogen [Mass/Vol] 11 mg/dL Normal 9-23 [facility] Comment on above: Performed By: #### C BC, BMP #### [facility] [address] [place] [address] [place] Basophils Auto (Bld) [#/Vol] Ordered By: Raul Quan on 02-05-2022 Basophils (Bld) [#/Vol] 0.1 10*3/uL 0.0-0.2 [facility] Basophils/100 WBC Auto (Bld) Ordered By: Raul Quan on 02-05-2022 Basophils/100 WBC (Bld) 0.6 % . [facility] Complete Blood Count Auto Di ffon 02-05-2022 Basophils (Bld) [#/Vol] 0.1 10*3/uL Normal 0.0-0.2 [facility] Comment on above: Result Comment: PERF ORMED BY: [place] [address] PATHOLOGIST CARDIAC CATHETERIZATION TECHNOLOGIST ZENA CASTELLON M.D. Performed By: #### C BC, BMP #### [facility] [address] Basophils/100 WBC (Bld) 0.6 % Normal . [facility] Comment on above: Performed By: #### C BC, BMP #### [address] Eosinophils (Bld) [#/Vol] 0.1 10*3/uL Normal 0.0-0.45 [facility] Comment on above: Performed By: #### C BC, BMP #### [address] Eosinophils/100 WBC (Bld) 0.7 % Normal . [facility] Comment on above: Performed By: #### C SEAN, BMP #### [address] Erythrocyte distribution width (RBC) [Ratio] 13.8 % Normal 12.0-14.8 [facility] Comment on above: Performed By: #### C BC, BMP #### [address] Hematocrit (Bld) [Volume fraction] 34.6 % Low 38.8-50.0 [facility] Comment on above: Performed By: #### C SEAN, BMP #### [address] Hemoglobin (Bld) [Mass/Vol] 11.4 g/dL Low 13.0-17.0 [facility] Comment on above: Performed By: #### C BC, BMP #### [address] Lymphocytes (Bld) [#/Vol] 1.5 10*3/uL Normal 1.00-4.8 [facility] Comment on above: Performed By: #### C BC, BMP #### [address] Lymphocytes/100 WBC (Bld) 14.4 % Normal . [facility] Comment on above: Performed By: #### C BC, BMP #### [address] MCH (RBC) [Entitic mass] 30.1 pg Normal 27.5-35.2 [facility] Comment on above: Performed By: #### C BC, BMP #### [facility] [address] MCV (RBC) [Entitic vol] 91.6 fL Normal 83.5-101 [facility] Comment on above: Performed By: #### C BC, BMP #### [facility] [address] Mean Corpuscular HGB Conc 32.9 g/dL Normal 32.5-35.6 [facility] Comment on above: Performed By: #### C BC, BMP #### [address] Monocytes (Bld) [#/Vol] 1.5 10*3/uL High 0.0-0.8 [facility] Comment on above: Performed By: #### C BC, BMP #### [address] Monocytes/100 WBC (Bld) 14.8 % Normal . [facility] Comment on above: Performed By: #### C BC, BMP #### [address] Neutrophils (Bld) [#/Vol] 7.1 10*3/uL Normal 1.8-7.7 [facility] Comment on above: Performed By: #### C BC, BMP #### [place] [address] [place] Neutrophils/100 WBC (Bld) 69.5 % Normal . [facility] Comment on above: Performed By: #### C BC, BMP #### [address] NRBC% 0.1 /100{WBC} Normal 0-0.5 [facility] Comment on above: Performed By: #### C BC, BMP #### [address] Platelet mean volume (Bld) [Entitic vol] 7.9 fL Normal 6.6-10.1 [facility] Comment on above: Performed By: #### C BC, BMP #### [facility] [address] [place] [address] [place] Platelets (Bld) [#/Vol] 142 10*3/uL Significant change down 150-450 [facility] Comment on above: Performed By: #### C BC, BMP #### [facility] [address] RBC (Bld) [#/Vol] 3.77 10*6/uL Low 3.90-5.60 [facility] Comment on above: Performed By: #### C BC, BMP #### [facility] [address] WBC (Bld) [#/Vol] 10.3 10*3/uL Normal 4.1-10.5 [facility] Comment on above: Performed By: #### C BC, BMP #### [facility] [address] Creatinine and Glomerular fi ltration rate.predicted panel (S/P/Bld)Ordered By: Raul Quan on 02-05-2022 Creatinine [Mass/Vol] 0.94 mg/dL 0.64-1.27 [facility] Eosinophils Auto (Bld) [#/Vo l]Ordered By: Raul Quan on 02-05-2022 Eosinophils (Bld) [#/Vol] 0.1 10*3/uL 0.0-0.45 [facility] Eosinophils/100 WBC Auto (Bl d)Ordered By: Raul Quan on 02-05-2022 Eosinophils/100 WBC (Bld) 0.7 % . [facility] Erythrocyte distribution wid th Auto (RBC) [Ratio]Ordered By: Raul Quan on 02-05-2022 Erythrocyte distribution width (RBC) [Ratio] 13.8 % 12.0-14.8 [facility] Estimated glomerular filtrat ion rate (GFR) non- AmericanOrdered By: Raul Quan on 02-05-2022 GFR/1.73 sq M.predicted among non-blacks MDRD (S/P/Bld) [Vol rate/Area] > 60 mL/Min [facility] Hematocrit Auto (Bld) [Volum e fraction]Ordered By: Raul Quan on 02-05-2022 Hematocrit (Bld) [Volume fraction] 34.6 % 38.8-50.0 [facility] Hemoglobin [Mass/volume] in BloodOrdered By: Raul Quan on 02-05-2022 Hemoglobin (Bld) [Mass/Vol] 11.4 g/dL 13.0-17.0 [facility] Leukocytes [#/volume] correc shyann for nucleated erythrocytes in Blood by Automated counOrdered By: Raul Quan on 02-05-2022 WBC corrected for nucl RBC Auto (Bld) [#/Vol] 10.3 10*3/uL 4.1-10.5 [facility] Lymphocytes Auto (Bld) [#/Vo l]Ordered By: Raul Quan on 02-05-2022 Lymphocytes (Bld) [#/Vol] 1.5 10*3/uL 1.00-4.8 [facility] Lymphocytes/100 WBC Auto (Bl d)Ordered By: Raul Quan on 02-05-2022 Lymphocytes/100 WBC (Bld) 14.4 % . [facility] MCH Auto (RBC) [Entitic mass ]Ordered By: Raul Quan on 02-05-2022 MCH (RBC) [Entitic mass] 30.1 pg 27.5-35.2 [facility] MCHC Auto (RBC) [Mass/Vol]Or dered By: Raul Quan on 02-05-2022 MCHC (RBC) [Mass/Vol] 32.9 g/dL 32.5-35.6 [facility] MCV Auto (RBC) [Entitic vol] Ordered By: Raul Quan on 02-05-2022 MCV (RBC) [Entitic vol] 91.6 fL 83.5-101 [facility] Monocytes Auto (Bld) [#/Vol] Ordered By: Raul Quan on 02-05-2022 Monocytes (Bld) [#/Vol] 1.5 10*3/uL 0.0-0.8 [facility] Monocytes/100 WBC Auto (Bld) Ordered By: Raul Quan on 02-05-2022 Monocytes/100 WBC (Bld) 14.8 % . [facility] Neutrophils Auto (Bld) [#/Vo l]Ordered By: Raul Quan on 02-05-2022 Neutrophils (Bld) [#/Vol] 7.1 10*3/uL 1.8-7.7 [facility] Neutrophils/100 WBC Auto (Bl d)Ordered By: Raul Quan on 02-05-2022 Neutrophils/100 WBC (Bld) 69.5 % . [facility] No Panel InformationOrdered By: Raul Quan on 02-05-2022 Estimated GFR () > 60 mL/Min [facility] Comment on above: GFR estimated refere nce range: According to KDOQI guidelines, <60 ml/min/1.73m2 is sufficient to diagnose a patient with chronic kidney disease. Pharmacy Creatinine Clearance (Chem 57.50 [facility] Nucleated erythrocytes [Pres ence] in Blood by Automated countOrdered By: Raul Quan on 02-05-2022 Nucleated RBC Auto Ql (Bld) 0.1 /100{WBC} 0-0.5 [facility] Platelet mean volume Auto (B ld) [Entitic vol]Ordered By: Raul Quan on 02-05-2022 Platelet mean volume (Bld) [Entitic vol] 7.9 fL 6.6-10.1 [facility] Platelets Auto (Bld) [#/Vol] Ordered By: Raul Quan on 02-05-2022 Platelets (Bld) [#/Vol] 142 10*3/uL 150-450 [facility] Comment on above: Delta: 198 on RBC Auto (Bld) [#/Vol]Ordere d By: Raul Quan on 02-05-2022 RBC (Bld) [#/Vol] 3.77 10*6/uL 3.90-5.60 [facility] Serum or plasma anion gap de terminationOrdered By: Raul Quan on 02-05-2022 Anion gap [Moles/Vol] 10.4 mmol/L 6.0-15.0 [facility] Serum or plasma calcium richy urement (mass/volume)Ordered By: Raul Quan on 02-05-2022 Calcium [Mass/Vol] 8.4 mg/dL 8.2-10.2 [facility] Serum or plasma chloride young surement (moles/volume)Ordered By: Raul Quan on 02-05-2022 Chloride [Moles/Vol] 101 mmol/L 95-114 [facility] Serum or plasma glucose richy urement (mass/volume)Ordered By: Raul Quan on 02-05-2022 Glucose [Mass/Vol] 109 mg/dL 70-100 [facility] Comment on above: ADA recommended refe rence rangeRandom Glucose Reference Range is dependent on time and content of last meal. Glucose of more than 200 mg/dL in a nonstressed, ambulatory subject supports the diagnosis of Diabetes Mellitus. Serum or plasma potassium me asurement (moles/volume)Ordered By: Raul Quan on 02-05-2022 Potassium [Moles/Vol] 4.6 mmol/L 3.5-5.1 [facility] Serum or plasma sodium measu rement (moles/volume)Ordered By: Raul Quan on 02-05-2022 Sodium [Moles/Vol] 135 mmol/L 136-146 [facility] Serum or plasma total carbon dioxide measurement (moles/volume)Ordered By: Raul Quan on 02-05-2022 CO2 [Moles/Vol] 28.2 mmol/L 22.0-30.0 [facility] Serum or plasma urea nitroge n measurement (mass/volume)Ordered By: Raul Quan on 02-05-2022 Urea nitrogen [Mass/Vol] 11 mg/dL 9-23 [facility] WBC Auto (Bld) [#/Vol]Ordere d By: Raul Quan on 02-05-2022 WBC (Bld) [#/Vol] 10.3 10*3/uL 4.1-10.5 [facility] Antibody Identificationon Antibody Identification COLD Normal [facility] Basic Metabolic Panelon 01-08 Anion gap [Moles/Vol] 13.9 mmol/L Normal 6.0-15.0 [facility] Comment on above: Performed By: #### C BC, BMP #### [facility] [address] [place] [address] [place] Calcium [Mass/Vol] 9.0 mg/dL Normal 8.2-10.2 [facility] Comment on above: Performed By: #### C BC, BMP #### [facility] [address] [place] [address] [place] Chloride [Moles/Vol] 101 mmol/L Normal 95-114 [facility] Comment on above: Performed By: #### C BC, BMP #### [facility] [address] CO2 [Moles/Vol] 24.4 mmol/L Normal 22.0-30.0 [facility] Comment on above: Performed By: #### C BC, BMP #### [facility] [address] [place] [address] [place] Creatinine [Mass/Vol] 0.81 mg/dL Normal 0.64-1.27 [facility] Comment on above: Performed By: #### C BC, BMP #### [facility] [address] [place] [address] [place] Creatinine Clr Calc Pharmacy 66.73 [facility] Comment on above: Result Comment: PERF ORMED BY: [facility] [address] [place] [address] PATHOLOGIST CARDIAC CATHETERIZATION TECHNOLOGIST ZENA CASTELLON M.D. Performed By: #### C BC, BMP #### [facility] [address] Estimated GFR ( Jojo > 60 [facility] Comment on above: Result Comment: GFR estimated reference range: According to KDOQI guidelines, <60 ml/min/1.73m2 is sufficient to diagnose a patient with chronic kidney disease. Performed By: #### C BC, BMP #### [facility] [address] Estimated GFR (Non- Am > 60 Normal [facility] Comment on above: Performed By: #### C BC, BMP #### [facility] [address] Glucose [Mass/Vol] 124 mg/dL High 70-100 [facility] Comment on above: Result Comment: [facility] Glucose Reference Range is dependent on time and content of last meal. Glucose of more than 200 mg/dL in a nonstressed, ambulatory subject supports the diagnosis of Diabetes Mellitus. ADA recommended reference range Performed By: #### C BC, BMP #### [address] Potassium [Moles/Vol] 4.3 mmol/L Normal 3.5-5.1 [facility] Comment on above: Performed By: #### C BC, BMP #### [address] Sodium [Moles/Vol] 135 mmol/L Low 136-146 [facility] Comment on above: Performed By: #### C SEAN, BMP #### [address] Urea nitrogen [Mass/Vol] 14 mg/dL Normal 9-23 [facility] Comment on above: Performed By: #### C BC, BMP #### [address] Blood Bank Pathologist Manny oneill 02-04-2022 Blood Bank Pathologist Review Sent to Pathology Normal [facility] Comment on above: Result Comment: PERF ORMED BY: [place] [address] PATHOLOGIST CARDIAC CATHETERIZATION TECHNOLOGIST ZENA CASTELLON M.D. Complete Blood Count Auto Di ffon 02-04-2022 Basophils (Bld) [#/Vol] 0.1 10*3/uL Normal 0.0-0.2 [facility] Comment on above: Result Comment: PERF ORMED BY: [address] [place] [address] PATHOLOGIST CARDIAC CATHETERIZATION TECHNOLOGIST ZENA CASTELLON M.D. Performed By: #### C BC #### [address] Basophils/100 WBC (Bld) 0.6 % Normal . [facility] Comment on above: Performed By: #### C BC #### [address] Eosinophils (Bld) [#/Vol] 0.1 10*3/uL Normal 0.0-0.45 [facility] Comment on above: Performed By: #### C BC #### [address] Eosinophils/100 WBC (Bld) 0.9 % Normal . [facility] Comment on above: Performed By: #### C BC #### [address] Erythrocyte distribution width (RBC) [Ratio] 13.7 % Normal 12.0-14.8 [facility] Comment on above: Performed By: #### C BC #### [address] Hematocrit (Bld) [Volume fraction] 37.5 % Low 38.8-50.0 [facility] Comment on above: Performed By: #### C BC #### [address] Hemoglobin (Bld) [Mass/Vol] 12.4 g/dL Low 13.0-17.0 [facility] Comment on above: Performed By: #### C BC #### [place] [address] [place] Lymphocytes (Bld) [#/Vol] 1.5 10*3/uL Normal 1.00-4.8 [facility] Comment on above: Performed By: #### C BC #### [address] Lymphocytes/100 WBC (Bld) 16.4 % Normal . [facility] Comment on above: Performed By: #### C BC #### [facility] [address] MCH (RBC) [Entitic mass] 30.2 pg Normal 27.5-35.2 [facility] Comment on above: Performed By: #### C BC #### [address] MCV (RBC) [Entitic vol] 91.5 fL Normal 83.5-101 [facility] Comment on above: Performed By: #### C BC #### [address] Mean Corpuscular HGB Conc 33.0 g/dL Normal 32.5-35.6 [facility] Comment on above: Performed By: #### C BC #### [address] Monocytes (Bld) [#/Vol] 1.1 10*3/uL High 0.0-0.8 [facility] Comment on above: Performed By: #### C BC #### [address] Monocytes/100 WBC (Bld) 12.0 % Normal . [facility] Comment on above: Performed By: #### C BC #### [address] Neutrophils (Bld) [#/Vol] 6.5 10*3/uL Normal 1.8-7.7 [facility] Comment on above: Performed By: #### C BC #### [address] Neutrophils/100 WBC (Bld) 70.1 % Normal . [facility] Comment on above: Performed By: #### C BC #### [address] NRBC% 0.0 /100{WBC} Normal 0-0.5 [facility] Comment on above: Performed By: #### C BC #### [address] Platelet mean volume (Bld) [Entitic vol] 8.5 fL Normal 6.6-10.1 [facility] Comment on above: Performed By: #### C BC #### [address] Platelets (Bld) [#/Vol] 198 10*3/uL Normal 150-450 [facility] Comment on above: Performed By: #### C BC #### [address] RBC (Bld) [#/Vol] 4.10 10*6/uL Normal 3.90-5.60 [facility] Comment on above: Performed By: #### C BC #### [address] WBC (Bld) [#/Vol] 9.3 10*3/uL Normal 4.1-10.5 [facility] Comment on above: Performed By: #### C BC #### [address] Direct [place] 02-04-2022 Polyspecific AHG Negative Normal [facility] [place] 02-04-2022 L ------ Specimen: [id number] Received: 02/04/22 Status: JUSTINA Henley Num: [id number] Spec Type: Impression Subm Dr: Rocio Mac DO Tissues: PATHDEVINK Procedures: PATHREVIEW Age/ Patient Sex Location Account Attending Physician Chico Baker 81/M 4N [id number] Raul Quan MD SPEC NUM: [id number] RECD: 02/04/22 STATUS: JUSTINA HENLEY NUM: [id number] SHYANN: 02/04/22 DR: Rocio Mac DO ENTERED: 02/04/[address]: LUMA TYPE: Impression DEPT: ME ORDERED: PATHREVIEW ORDERED: PATHREVIEW Blood Bank Results Date Time Test Result Flag (u) Normal Range 02/04/22824 Ab Screen POSITIVE AB ID 02/04/22824 Cold Ab Pathologist Review A cold antibody with no apparent specificity was detectable in the serum at 22C and colder. Due to the low temperature agglutination characteristics, these antibodies are considered clinically insignificant. Specimen: [id number] Received: 02/04/22 Status: JUSTINA Henley Num: [id number] Spec Type: Impression Subm Dr: Rocio Mac DO Tissues: PATHBBK Procedures: PATHREVIEW Patient: Chico Baker [id number] (Continued) Signed (signature on file) Judah Alvarado MD 02/04/22 [id number] Normal [facility] Type and Screenon 02-04-2022 ABO and Rh group Nom (Bld) Blood group A Rh(D) positive Normal [facility] Comment on above: Result Comment: PERF ORMED BY: [facility] [address] [place] [address] PATHOLOGIST CARDIAC CATHETERIZATION TECHNOLOGIST ZENA CASTELLON M.D. Covid-19 PCR [facility]on 01-07 SARS-CoV-2 (COVID-19) RNA JESSIE+probe Ql (Unsp spec) Not detected Normal NOT DETECTED [facility] Comment on above: Result Comment: This test is not yet approved or cleared by the [place] FDA. When there are no FDA-approved or cleared tests available, and other criteria are met, FDA can make tests available under an emergency access mechanism called an Emergency Use Authorization (EUA). The EUA for this test is supported by the [employer] Intern of Health and Human Service's (HHS's) declaration [...] consistent with SARS-CoV-2. Performed By: #### C [facility] #### [facility] [address] [place] [address] Dr. Jodi Oglesby US carotid doppler BIon - US carotid doppler [facility] [place] [address] [place] [address] Ultrasound Report Signed Patient: Chico Baker MR#: [id number] : 1940 Acct:[id number] Age/Sex: 81 / M ADM Date: 01/20/22 Loc: [facility] Room: Type: [facility] Attending Dr: Tamar Perea SENIOR DATA INTEGRATION DEVELOPER-C Ordering Provider: Tamar Perea APRN Date of [...] Quan M.D.01/20/2022 11:32 AM Dictation Location: [facility] Tech: Aby Mueller Transcribed By: PWS 01/20/221131 Dictated By: Raul Quan MD 01/20/221129 Signed By: 01/20/22 113 [facility] CBC AUTO DIFFon 12-08-2021 BASO # 0.1 103/ul Normal 0.0-0.1 [facility] Comment on above: Performed By: #### D ATA1C #### [facility] [address] [place] [address] Dr. Jodi Oglesby Basophils/100 WBC (Bld) 0.5 % Normal 0.2-2.0 [facility] Comment on above: Performed By: #### D ATA1C #### [facility] [address] [address] [address] Jodi Oglesby EO # 0.1 103/ul Normal 0.0-0.7 [facility] Comment on above: Performed By: #### D ATA1C #### [facility] [address] [address] [address] Jodi Oglesby Eosinophils/100 WBC (Bld) 1.4 % Normal 0.9-7.0 [facility] Comment on above: Performed By: #### D ATA1C #### [facility] [address] [place] [address] Dr. Jodi Oglesby Erythrocyte distribution width (RBC) [Ratio] 13.0 % Normal 11.0-15.0 [facility] Comment on above: Performed By: #### Chavez ATA1C #### [facility] [address] [place] [address] Dr. Jodi Oglesby Hematocrit (Bld) [Volume fraction] 36.1 % Critically low 42.0-54.0 [facility] Comment on above: Performed By: #### D ATA1C #### [facility] [address] [place] [address] Dr. Jodi Oglesby Hemoglobin (Bld) [Mass/Vol] 11.2 g/dL Critically low 14.0-18.0 [facility] Comment on above: Performed By: #### D ATA1C #### [facility] [address] [place] [address] Dr. Jodi Oglesby IG # 0.04 10e3/ul Critically high 0.00-0.03 [facility] Comment on above: Performed By: #### D ATA1C #### [facility] [address] [place] [address] Dr. Jodi Oglesby IG % 0.4 % Normal 0.0-0.5 [facility] Comment on above: Performed By: #### D ATA1C #### [facility] [address] [address] [address] Jodi Oglesby LYMPH # 1.8 103/ul Normal 1.2-3.8 [facility] Comment on above: Performed By: #### D ATA1C #### [facility] [address] [place] [address] Dr. Jodi Oglesby Lymphocytes/100 WBC (Bld) 17.2 % Critically low 20.5-60.0 [facility] Comment on above: Performed By: #### D ATA1C #### [facility] [address] [place] [address] Dr. Jodi Oglesby MANUAL DIFF REQ NO Normal [facility] Comment on above: Performed By: #### D ATA1C #### [facility] [address] [place] [address] Dr. Jodi Oglesby MCH (RBC) [Entitic mass] 30.4 pg Normal 25.9-34.0 [facility] Comment on above: Performed By: #### D ATA1C #### [facility] [address] [place] [address] Dr. Jodi Oglesby MCHC (RBC) [Mass/Vol] 31.0 g/dL Normal 29.9-35.2 [facility] Comment on above: Performed By: #### D ATA1C #### [facility] [address] [place] [address] Dr. Jodi Oglesby MCV (RBC) [Entitic vol] 98.1 fL Critically high 80.0-94.0 [facility] Comment on above: Performed By: #### D ATA1C #### [facility] [address] [place] [address] Dr. Jodi Oglesby MONO # 1.0 103/ul Critically high 0.3-0.8 [facility] Comment on above: Performed By: #### D ATA1C #### [facility] [address] [place] [address] Dr. Jodi Oglesby Monocytes/100 WBC (Bld) 9.8 % Normal 1.7-12.0 [facility] Comment on above: Performed By: #### D ATA1C #### [facility] [address] [address] [address] Jodi Oglesby NEUT # 7.3 103/ul Critically high 1.4-6.5 [facility] Comment on above: Performed By: #### D ATA1C #### [facility] [address] [place] [address] Dr. Jodi Oglesby Neutrophils/100 WBC (Bld) 70.7 % Normal 43.0-75.0 [facility] Comment on above: Performed By: #### D ATA1C #### [facility] [address] [place] [address] Dr. Jodi Oglesby Platelet mean volume (Bld) [Entitic vol] 9.1 fL Critically low 9.5-13.5 [facility] Comment on above: Performed By: #### D ATA1C #### [facility] [address] [place] [address] Dr. Jodi Oglesby PLT 214 103/ul Normal 150-450 [facility] Comment on above: Performed By: #### D ATA1C #### [facility] [address] [place] [address] Dr. Jodi Oglesby RBC 3.68 106/ul Critically low 4.70-6.10 [facility] Comment on above: Performed By: #### D ATA1C #### [facility] [address] [place] [address] Dr. Jodi Oglesby WBC 10.3 103/ul Normal 4.0-11.0 [facility] Comment on above: Performed By: #### D ATA1C #### [facility] [address] [place] [address] Dr. Jodi Oglesby PROF CHEM 8 (BAS METB)on Anion gap [Moles/Vol] 9.7 mmol/L Normal [facility] Comment on above: Performed By: #### C BC #### [facility] [address] [place] [address] Dr. Jodi Oglesby Calcium [Mass/Vol] 8.9 mg/dL Normal 8.5-10.1 [facility] Comment on above: Performed By: #### C BC #### [facility] [address] [address] [address] Jodi Oglesby Chloride [Moles/Vol] 102 mmol/L Normal 98-107 [facility] Comment on above: Performed By: #### C BC #### [facility] [address] [place] [address] Dr. Jodi Oglesby CO2 [Moles/Vol] 31.0 mmol/L Normal 21.0-32.0 [facility] Comment on above: Performed By: #### C BC #### [facility] [address] [place] [address] Dr. Jodi Oglesby Creatinine [Mass/Vol] 0.85 mg/dL Normal 0.70-1.30 [facility] Comment on above: Performed By: #### C BC #### [facility] [address] [place] [address] Dr. Jodi Oglesby EGFR-AF THAI >60 Normal >=60 [facility] Comment on above: Performed By: #### C BC #### [facility] [address] [place] [address] Dr. Jodi Oglesby EGFR-NON AF THAI >60 Normal >=60 [facility] Comment on above: Performed By: #### C BC #### [facility] [address] [place] [address] Dr. Jodi Oglesby Glucose [Mass/Vol] 106 mg/dL Normal 74-106 [facility] Comment on above: Performed By: #### C BC #### [facility] [address] [place] [address] Dr. Jodi Oglesby Potassium [Moles/Vol] 4.7 mmol/L Normal 3.5-5.1 [facility] Comment on above: Performed By: #### C BC #### [facility] [address] [place] [address] Dr. Jodi Oglesby Sodium [Moles/Vol] 138 mmol/L Normal 136-145 [facility] Comment on above: Performed By: #### C BC #### [facility] [address] [place] [address] Dr. Jodi Oglesby Urea nitrogen [Mass/Vol] 14.0 mg/dL Normal 7.0-18.0 [facility] Comment on above: Performed By: #### C BC #### [facility] [address] [place], [place] [address] Dr. Jodi Oglesby Urea nitrogen/Creatinine [Mass ratio] 16.5 mg/mg Normal [facility] Comment on above: Performed By: #### C BC #### [facility] [address] [place], [place] [address] Dr. Jodi Oglesby XR CHEST 2 Von [...] ROCIO RICARDO Date: 2021-12-08 16:20 Normal [facility] Covid-19 PCR ([facility])on 11-07 SARS-CoV-2 (COVID-19) RNA JESSIE+probe Ql (Unsp spec) Not detected Normal NOT DETECTED [facility] Comment on above: Result Comment: This test is not yet approved or cleared by the [place] FDA. When there are no FDA-approved or cleared tests available, and other criteria are met, FDA can make tests available under an emergency access mechanism called an Emergency Use Authorization (EUA). The EUA for this test is supported by the [place] of Health and Human Service's (HHS's) declaration [...] SARS-CoV-2. Performed By: #### C VDT[facility] #### [facility] [address] [place] [address] Dr. Jodi Oglesby CBC AUTO DIFFon 11-11-2021 BASO # 0.1 103/ul Normal 0.0-0.1 [facility] Comment on above: Performed By: #### C BC #### [facility] [address] [place] [address] Dr. Jodi Oglesby Basophils/100 WBC (Bld) 0.5 % Normal 0.2-2.0 [facility] Comment on above: Performed By: #### C BC #### [facility] [address] [place] [address] Dr. Jodi Oglesby EO # 0.2 103/ul Normal 0.0-0.7 [facility] Comment on above: Performed By: #### C BC #### [facility] [address] [place] [address] Dr. Jodi Oglesby Eosinophils/100 WBC (Bld) 1.9 % Normal 0.9-7.0 [facility] Comment on above: Performed By: #### C BC #### [facility] [address] [place] [address] Dr. Jodi Oglesby Erythrocyte distribution width (RBC) [Ratio] 13.6 % Normal 11.0-15.0 [facility] Comment on above: Performed By: #### C BC #### [facility] [address] [place] [address] Dr. Jodi Oglesby Hematocrit (Bld) [Volume fraction] 28.6 % Critically low 42.0-54.0 [facility] Comment on above: Performed By: #### C BC #### [facility] [address] [place] [address] Dr. Jodi Oglesby Hemoglobin (Bld) [Mass/Vol] 9.4 g/dL Critically low 14.0-18.0 [facility] Comment on above: Performed By: #### C BC #### [facility] [address] [place] [address] Dr. Jodi Oglesby IG # 0.08 10e3/ul Critically high 0.00-0.03 [facility] Comment on above: Performed By: #### C BC #### [facility] [address] [place] [address] Dr. Jodi Oglesby IG % 0.8 % Critically high 0.0-0.5 [facility] Comment on above: Performed By: #### C BC #### [facility] [address] [place] [address] Dr. Jodi Oglesby LYMPH # 1.3 103/ul Normal 1.2-3.8 [facility] Comment on above: Performed By: #### C BC #### [facility] [address] [place] [address] Dr. Jodi Oglesby Lymphocytes/100 WBC (Bld) 13.0 % Critically low 20.5-60.0 [facility] Comment on above: Performed By: #### C BC #### [facility] [address] [place] [address] Dr. Jodi Oglesby MANUAL DIFF REQ NO Normal [facility] Comment on above: Performed By: #### C BC #### [facility] [address] [place] [address] Dr. Jodi Oglesby MCH (RBC) [Entitic mass] 31.5 pg Normal 25.9-34.0 [facility] Comment on above: Performed By: #### C BC #### [facility] [address] [place] [address] Dr. Jodi Oglesby MCHC (RBC) [Mass/Vol] 32.9 g/dL Normal 29.9-35.2 [facility] Comment on above: Performed By: #### C BC #### [facility] [address] [place] [address] Dr. Jodi Oglesby MCV (RBC) [Entitic vol] 96.0 fL Critically high 80.0-94.0 [facility] Comment on above: Performed By: #### C BC #### [facility] [address] [place] [address] Dr. Jodi Oglesby MONO # 1.1 103/ul Critically high 0.3-0.8 [facility] Comment on above: Performed By: #### C BC #### [facility] [address] [place] [address] Dr. Jodi Oglesby Monocytes/100 WBC (Bld) 10.7 % Normal 1.7-12.0 [facility] Comment on above: Performed By: #### C BC #### [facility] [address] [place] [address] Dr. Jodi Oglesby NEUT # 7.4 103/ul Critically high 1.4-6.5 [facility] Comment on above: Performed By: #### C BC #### [facility] [address] [place] [address] Dr. Jodi Oglesby Neutrophils/100 WBC (Bld) 73.1 % Normal 43.0-75.0 [facility] Comment on above: Performed By: #### C BC #### [facility] [address] [place] [address] Dr. Jodi Oglesby Platelet mean volume (Bld) [Entitic vol] 9.3 fL Critically low 9.5-13.5 [facility] Comment on above: Performed By: #### C BC #### [facility] [address] [place] [address] Dr. Jodi Oglesby PLT 288 103/ul Normal 150-450 [facility] Comment on above: Performed By: #### C BC #### [facility] [address] [place] [address] Dr. Jodi Oglesby RBC 2.98 106/ul Critically low 4.70-6.10 [facility] Comment on above: Performed By: #### C BC #### [facility] [address] [place] [address] Dr. Jodi Oglesby WBC 10.1 103/ul Normal 4.0-11.0 [facility] Comment on above: Performed By: #### C BC #### [facility] [address] [place] [address] ABD/PELVIS WO CONon [...] TAYO CASTILLO Date: 2021-11-11 03:10 Normal [facility] Covid-19 PCR (CVDTB)on SARS-CoV-2 (COVID-19) RNA JESSIE+probe Ql (Unsp spec) Not detected Normal NOT DETECTED [facility] Comment on above: Result Comment: When diagnostic [...] for this test is supported by the [employer] of Health and Human Service's declaration that [...] used). Performed By: #### C BC #### [facility] [address] [place], [place] [address] Dr. Jodi Oglesby OCC BLD IMMUNO SCREENon OCCULT BLOOD Negative Normal NEGATIVE [facility] Comment on above: Performed By: #### D ATA1C #### [facility] [address] [place], [place] [address] Dr. Jodi Oglesby PROF 14(COMP METB)on 022 Albumin [Mass/Vol] 3.0 g/dL Critically low 3.4-5.0 [facility] Comment on above: Performed By: #### C MP #### [facility] [address] [place] [address] Dr. Jodi Oglesby Albumin/Globulin [Mass ratio] 0.8 {ratio} Normal [facility] Comment on above: Performed By: #### C MP #### [facility] [address] [place] [address] [address] Jodi Oglesby ALP [Catalytic activity/Vol] 126 U/L Critically high 46-116 [facility] Comment on above: Performed By: #### C MP #### [facility] [address] [place] [address] Dr. Jodi Oglesby ALT [Catalytic activity/Vol] 22 U/L Normal 16-63 [facility] Comment on above: Performed By: #### C MP #### [facility] [address] [place] [address] Dr. Jodi Oglesby Anion gap [Moles/Vol] 16.7 mmol/L Normal [facility] Comment on above: Performed By: #### C MP #### [facility] [address] [place] [address] Dr. Jodi Oglesby AST [Catalytic activity/Vol] 23 U/L Normal 15-37 [facility] Comment on above: Performed By: #### C MP #### [facility] [address] [place] [address] Dr. Jodi Oglesby Bilirubin [Mass/Vol] 0.6 mg/dL Normal 0.2-1.0 [facility] Comment on above: Performed By: #### C MP #### [facility] [address] [place] [address] Dr. Jodi Oglesby Calcium [Mass/Vol] 8.5 mg/dL Normal 8.5-10.1 [facility] Comment on above: Performed By: #### C MP #### [facility] [address] [place] [address] Dr. Jodi Oglesby Chloride [Moles/Vol] 99 mmol/L Normal 98-107 [facility] Comment on above: Performed By: #### C MP #### [facility] [address] [place] [address] Dr. Jodi Oglesby CO2 [Moles/Vol] 27.4 mmol/L Normal 21.0-32.0 [facility] Comment on above: Performed By: #### C MP #### [facility] [address] [place] [address] Dr. Jodi Oglesby Creatinine [Mass/Vol] 0.80 mg/dL Normal 0.70-1.30 [facility] Comment on above: Performed By: #### C MP #### [facility] [address] [place] [address] Dr. Jodi Oglesby EGFR-AF THAI >60 Normal >=60 [facility] Comment on above: Performed By: #### C MP #### [facility] [address] [place] [address] Dr. Jodi Oglesby EGFR-NON AF THAI >60 Normal >=60 [facility] Comment on above: Performed By: #### C MP #### [facility] [address] [place] [address] Dr. Jodi Oglesby Globulin (S) [Mass/Vol] 3.9 g/dL Normal [facility] Comment on above: Performed By: #### C MP #### [facility] [address] [place] [address] Dr. Jodi Oglesby Glucose [Mass/Vol] 116 mg/dL Critically high 74-106 [facility] Comment on above: Performed By: #### C MP #### [facility] [address] [place] [address] Dr. Jodi Oglesby Potassium [Moles/Vol] 4.1 mmol/L Normal 3.5-5.1 [facility] Comment on above: Performed By: #### C MP #### [facility] [address] [place] [address] Dr. Jodi Oglesby Protein [Mass/Vol] 6.9 g/dL Normal 6.4-8.2 [facility] Comment on above: Performed By: #### C MP #### [facility] [address] [place] [address] Dr. Jodi Oglesby Sodium [Moles/Vol] 129 mmol/L Critically low 136-145 [facility] Comment on above: Performed By: #### C MP #### [facility] [address] [place] [address] Dr. Jodi Oglesby Urea nitrogen [Mass/Vol] 15.0 mg/dL Normal 7.0-18.0 [facility] Comment on above: Performed By: #### C MP #### [facility] [address] [place] [address] Dr. Jodi Oglesby Urea nitrogen/Creatinine [Mass ratio] 18.8 mg/mg Normal [facility] Comment on above: Performed By: #### C MP #### [facility] [address] [place] [address] Dr. Jodi Oglesby PROTIMEon 11-11-2021 INR Coag (PPP) [Relative time] 1.01 {INR} Normal [facility] Comment on above: Performed By: #### P TT, PT #### [facility] [address] [place] [address] Dr. Jodi Oglesby INR GUIDELINES SEE BELOW Normal [facility] Comment on above: Result Comment: ESHA RED INR: 2.0 - 3.0 CONDITIONS NOT LISTED BELOW 2.5 - 3.5 FOR PROSTHETIC HEART VALVE REPLACEMENT 2.5 - 3.5 RECURRENT THROMBOSIS Performed By: #### P TT, PT #### [facility] [address] [place] [address] Dr. Jodi Oglesby PT Coag (PPP) [Time] 10.9 s Normal 9.0-11.6 [facility] Comment on above: Performed By: #### P TT, PT #### [facility] [address] [place] [address] Dr. Jodi Oglesby PTTon 11-11-2021 aPTT Coag (Bld) [Time] 25.4 s Normal 22.3-36.2 [facility] Comment on above: Performed By: #### P TT, PT #### [facility] [address] [place] [address] Dr. Joid Oglesby CBC AUTO DIFFon 10-26-2021 BASO # 0.0 103/ul Normal 0.0-0.1 [facility] Comment on above: Performed By: #### D ATA1C #### [facility] [address] [place] [address] [address] Jodi Oglesby Basophils/100 WBC (Bld) 0.3 % Normal 0.2-2.0 [facility] Comment on above: Performed By: #### D ATA1C #### [facility] [address] [place] [address] [address] Jodi Oglesby EO # 0.1 103/ul Normal 0.0-0.7 [facility] Comment on above: Performed By: #### D ATA1C #### [facility] [address] [place] [address] Dr. Jodi Oglesby Eosinophils/100 WBC (Bld) 0.5 % Critically low 0.9-7.0 [facility] Comment on above: Performed By: #### D ATA1C #### [facility] [address] [place] [address] Dr. Jodi Oglesby Erythrocyte distribution width (RBC) [Ratio] 12.4 % Normal 11.0-15.0 [facility] Comment on above: Performed By: #### D ATA1C #### [facility] [address] [place] [address] Dr. Jodi Oglesby Hematocrit (Bld) [Volume fraction] 39.5 % Critically low 42.0-54.0 [facility] Comment on above: Performed By: #### D ATA1C #### [facility] [address] [place] [address] Dr. Jodi Oglesby Hemoglobin (Bld) [Mass/Vol] 12.8 g/dL Critically low 14.0-18.0 [facility] Comment on above: Performed By: #### D ATA1C #### [facility] [address] [place] [address] Dr. Jodi Oglesby IG # 0.07 10e3/ul Critically high 0.00-0.03 [facility] Comment on above: Performed By: #### D ATA1C #### [facility] [address] [place] [address] [address] Jodi Oglesby IG % 0.5 % Normal 0.0-0.5 [facility] Comment on above: Performed By: #### D ATA1C #### [facility] [address] [place] [address] [address] Jodi Oglesby LYMPH # 0.9 103/ul Critically low 1.2-3.8 [facility] Comment on above: Performed By: #### D ATA1C #### [facility] [address] [address] [address] Jodi Oglesby Lymphocytes/100 WBC (Bld) 6.3 % Critically low 20.5-60.0 [facility] Comment on above: Performed By: #### D ATA1C #### [facility] [address] [place] [address] Dr. Jodi Oglesby MANUAL DIFF REQ NO Normal [facility] Comment on above: Performed By: #### D ATA1C #### [facility] [address] [address] [address] Jodi Oglesby MCH (RBC) [Entitic mass] 30.8 pg Normal 25.9-34.0 [facility] Comment on above: Performed By: #### D ATA1C #### [facility] [address] [place] [address] Dr. Jodi Oglesby MCHC (RBC) [Mass/Vol] 32.4 g/dL Normal 29.9-35.2 [facility] Comment on above: Performed By: #### D ATA1C #### [facility] [address] [place] [address] Dr. Jodi Oglesby MCV (RBC) [Entitic vol] 95.2 fL Critically high 80.0-94.0 [facility] Comment on above: Performed By: #### D ATA1C #### [facility] [address] [place] [address] Dr. Jodi Oglesby MONO # 0.9 103/ul Critically high 0.3-0.8 [facility] Comment on above: Performed By: #### D ATA1C #### [facility] [address] [place], [place] [address] Dr. Jodi Oglesby Monocytes/100 WBC (Bld) 6.2 % Normal 1.7-12.0 [facility] Comment on above: Performed By: #### D ATA1C #### [facility] [address] [place] [address] Dr. Jodi Oglesby NEUT # 12.8 103/ul Critically high 1.4-6.5 [facility] Comment on above: Performed By: #### D ATA1C #### [facility] [address] [place] [address] Dr. Jodi Oglesby Neutrophils/100 WBC (Bld) 86.2 % Critically high 43.0-75.0 [facility] Comment on above: Performed By: #### D ATA1C #### [facility] [address] [place] [address] Dr. Jodi Oglesby Platelet mean volume (Bld) [Entitic vol] 9.4 fL Critically low 9.5-13.5 [facility] Comment on above: Performed By: #### D ATA1C #### [facility] [address] [place] [address] Dr. Jodi Oglesby PLT 169 103/ul Normal 150-450 [facility] Comment on above: Performed By: #### D ATA1C #### [facility] [address] [place] [address] Dr. Jodi Oglesby RBC 4.15 106/ul Critically low 4.70-6.10 [facility] Comment on above: Performed By: #### D ATA1C #### [facility] [address] [place] [address] Dr. Jodi Oglesby WBC 14.8 103/ul Critically high 4.0-11.0 [facility] Comment on above: Performed By: #### D ATA1C #### [facility] [address] [place], [place] [address] Dr. Jodi Oglesby CT CHEST WO CONon [...] NICOLE SIMMS Date: 2021-10-26 17:38 Normal [facility] Covid-19 PCR ([facility])on 10-07 SARS-CoV-2 (COVID-19) RNA JESSIE+probe Ql (Unsp spec) Not detected Normal NOT DETECTED [facility] Comment on above: Result Comment: When diagnostic [...] for this test is supported by the [place] of Health and Human Service's declaration that [...] used). Performed By: #### D ATA1C #### [facility] [address] [place] [address] Dr. Jodi Oglesby PROF CHEM 8 (BAS METB)on Anion gap [Moles/Vol] 11.7 mmol/L Normal [facility] Comment on above: Performed By: #### C BC #### [facility] [address] [place] [address] Dr. Jodi Oglesby Calcium [Mass/Vol] 9.2 mg/dL Normal 8.5-10.1 [facility] Comment on above: Performed By: #### C BC #### [facility] [address] [place] [address] Dr. Jodi Oglesby Chloride [Moles/Vol] 101 mmol/L Normal 98-107 [facility] Comment on above: Performed By: #### C BC #### [facility] [address] [place] [address] Dr. Jodi Oglesby CO2 [Moles/Vol] 27.6 mmol/L Normal 21.0-32.0 [facility] Comment on above: Performed By: #### C BC #### [facility] [address] [place] [address] Dr. Jodi Oglesby Creatinine [Mass/Vol] 0.98 mg/dL Normal 0.70-1.30 [facility] Comment on above: Performed By: #### C BC #### [facility] [address] [place] [address] Dr. Jodi Oglesby EGFR-AF THAI >60 Normal >=60 [facility] Comment on above: Performed By: #### C BC #### [facility] [address] [place] [address] Dr. Jodi Oglesby EGFR-NON AF THAI >60 Normal >=60 [facility] Comment on above: Performed By: #### C BC #### [facility] [address] [place] [address] Dr. Jodi Oglesby Glucose [Mass/Vol] 119 mg/dL Critically high 74-106 T [facility] Comment on above: Performed By: #### C BC #### [facility] [address] [place] [address] [address] Jodi Oglesby Potassium [Moles/Vol] 4.3 mmol/L Normal 3.5-5.1 [facility] Comment on above: Performed By: #### C BC #### [facility] [address] [place] [address] [address] Jodi Oglesby Sodium [Moles/Vol] 136 mmol/L Normal 136-145 [facility] Comment on above: Performed By: #### C BC #### [facility] [address] [place] [address] Dr. Jodi Oglesby Urea nitrogen [Mass/Vol] 15.0 mg/dL Normal 7.0-18.0 [facility] Comment on above: Performed By: #### C BC #### [facility] [address] [place] [address] Dr. Jodi Oglesby Urea nitrogen/Creatinine [Mass ratio] 15.3 mg/mg Normal [facility] Comment on above: Performed By: #### C BC #### [facility] [address] [place] [address] Dr. Jodi Oglesby XR CLAVICLE RTon 10-26-2021 [...] by: ABY ALDANA Date: 2021-10-26 15:37 Normal [facility] XR ELBOW RT MIN 3 VIEWSon [...] DEL CHAKRABORTY Date: 2021-10-26 17:23 Normal [facility] XR HIP RT 2 3V W PELVISon [...] by: CHARLES ALEJANDRA Date: 2021-10-26 15:40 Normal [facility] CARDIAC STRESS/REST INJE CTIONon 10-21-2021 [facility] CARDIAC STRESS/REST INJECTION Patient Name: CHICO BAKER STUDY: MYOCARDIAL PERFUSION STRESS TEST WITH LEXISCAN Performing facility: [facility], [address] [place] [address], [address], [address] Provider: Adilene Harrington MD, [facility] PCP: Dr. Jori Dunham Supervising provider: Adilene Harrington MD, [facility] INDICATION: AAA Pre-operative risk assessment for AAA scheduled at [facility] [place]. HISTORY: Gender: M; Age: 81 y/o ; Height: 0 cm; Weight: 0 kg. HTN; Carotid disease PAD AAA Denies smoking. COMPARISON: Previous nuclear testing completed [id number] at [place]. Previous echo testing completed on 2020 at [facility]. ACCESSION NUMBER(S): [id number]; [id number]; [id number] ORDERING CLINICIAN: JUDAH HARRINGTON TECHNIQUE: ONE DAY [...] Electronically signed by: ALL HUDSON MD Normal [facility] No Panel Informationon 10-21 Normal -[facility] [address] [place] Work Phone: COVID-19 Positive/NegativeOr dered By: Raul Quan on 10-13-2021 SARS-CoV-2 (COVID-19) N gene JESSIE+probe Ql (Resp) Negative Negative [facility] Comment on above: Testing for SARS-CoV -2 by RT-PCR This test was developed and its performance characteristics determined by [employer] ([facility]) and validated at the [facility]. This test has not been FDA cleared [...] 10-06-2021 Basophils (Bld) [#/Vol] 0.0 10*3/uL 0.0-0.2 [facility] Basophils/100 WBC Auto (Bld) Ordered By: Raul Quan on 10-06-2021 Basophils/100 WBC (Bld) 0.7 % . [facility] Blood hemoglobin measurement (mass/volume)Ordered By: Raul Quan on 10-06-2021 Hemoglobin (Bld) [Mass/Vol] 13.1 g/dL 13.0-17.0 [facility] Blood leukocytes automated c ount (number/volume)Ordered By: Raul Quan on 10-06-2021 WBC (Bld) [#/Vol] 5.2 10*3/uL 4.5-11.0 [facility] Creatinine and Glomerular fi ltration rate.predicted panel (S/P/Bld)Ordered By: Raul Quan on 10-06-2021 Creatinine [Mass/Vol] 0.98 mg/dL 0.64-1.27 [facility] Eosinophils Auto (Bld) [#/Vo l]Ordered By: Raul Quan on 10-06-2021 Eosinophils (Bld) [#/Vol] 0.1 10*3/uL 0.0-0.45 [facility] Eosinophils/100 WBC Auto (Bl d)Ordered By: Raul Quan on 08-01-2022 Eosinophils/100 WBC (Bld) 1.3 % . [facility] Erythrocyte distribution wid th Auto (RBC) [Ratio]Ordered By: Raul Quan on 10-06-2021 Erythrocyte distribution width (RBC) [Ratio] 13.3 % 12.0-14.8 [facility] Estimated glomerular filtrat ion rate (GFR) non- AmericanOrdered By: Raul Quan on 10-06-2021 GFR/1.73 sq M.predicted among non-blacks MDRD (S/P/Bld) [Vol rate/Area] > 60 mL/Min [facility] Hematocrit Auto (Bld) [Volum e fraction]Ordered By: Raul Quan on 10-06-2021 Hematocrit (Bld) [Volume fraction] 40.4 % 38.8-50.0 [facility] - Hematology and Cell countsOrdered By: Raul Quan on 10-06-2021 Nucleated RBC/100 WBC (Bld) [Ratio] 0.0 % 0-0.5 [facility] Lymphocytes Auto (Bld) [#/Vo l]Ordered By: Raul Quan on 10-06-2021 Lymphocytes (Bld) [#/Vol] 1.0 10*3/uL 1.00-4.8 [facility] Lymphocytes/100 WBC Auto (Bl d)Ordered By: Raul Quan on 10-06-2021 Lymphocytes/100 WBC (Bld) 18.4 % . [facility] MCH Auto (RBC) [Entitic mass ]Ordered By: Raul Quan on 10-06-2021 MCH (RBC) [Entitic mass] 30.9 pg 27.5-35.2 [facility] MCHC Auto (RBC) [Mass/Vol]Or dered By: Raul Quan on 10-06-2021 MCHC (RBC) [Mass/Vol] 32.5 g/dL 32.5-35.6 [facility] MCV Auto (RBC) [Entitic vol] Ordered By: Raul Quan on 10-06-2021 MCV (RBC) [Entitic vol] 95.2 fL 83.5-101 [facility] Monocytes Auto (Bld) [#/Vol] Ordered By: Raul Quan on 10-06-2021 Monocytes (Bld) [#/Vol] 0.6 10*3/uL 0.0-0.8 [facility] Monocytes/100 WBC Auto (Bld) Ordered By: Raul Quan on 10-06-2021 Monocytes/100 WBC (Bld) 12.0 % . [facility] Neutrophils Auto (Bld) [#/Vo l]Ordered By: Raul Quan on 10-06-2021 Neutrophils (Bld) [#/Vol] 3.5 10*3/uL 1.8-7.7 [facility] Neutrophils/100 WBC Auto (Bl d)Ordered By: Raul Quan on 10-06-2021 Neutrophils/100 WBC (Bld) 67.6 % . [facility] No Panel InformationOrdered By: Raul Quan on 10-06-2021 Estimated GFR () > 60 mL/Min [facility] Comment on above: GFR estimated refere nce range: According to KDOQI guidelines, <60 ml/min/1.73m2 is sufficient to diagnose a patient with chronic kidney disease. Pharmacy Creatinine Clearance (Chem N/A [facility] Platelet mean volume Auto (B ld) [Entitic vol]Ordered By: Raul Quan on 10-06-2021 Platelet mean volume (Bld) [Entitic vol] 8.1 fL 6.6-10.1 [facility] Platelets Auto (Bld) [#/Vol] Ordered By: Raul Quan on 10-06-2021 Platelets (Bld) [#/Vol] 185 10*3/uL 150-450 [facility] RBC Auto (Bld) [#/Vol]Ordere d By: Raul Quan on 10-06-2021 RBC (Bld) [#/Vol] 4.25 10*6/uL 3.90-5.60 [facility] Serum or plasma calcium richy urement (mass/volume)Ordered By: Raul Quan on 10-06-2021 Calcium [Mass/Vol] 9.0 mg/dL 8.2-10.2 [facility] Serum or plasma chloride young surement (moles/volume)Ordered By: Raul Quan on 10-06-2021 Chloride [Moles/Vol] 101 mmol/L 95-114 [facility] Serum or plasma glucose richy urement (mass/volume)Ordered By: Raul Quan on 10-06-2021 Glucose [Mass/Vol] 187 mg/dL 70-100 [facility] Comment on above: ADA recommended refe rence range Random Glucose Reference Range is dependent on time and content of last meal. Glucose of more than 200 mg/dL in a nonstressed, ambulatory subject supports the diagnosis of Diabetes Mellitus. Serum or plasma potassium me asurement (moles/volume)Ordered By: Raul Quan on 10-06-2021 Potassium [Moles/Vol] 4.0 mmol/L 3.5-5.1 [facility] Serum or plasma sodium measu rement (moles/volume)Ordered By: Raul Quan on 10-06-2021 Sodium [Moles/Vol] 135 mmol/L 136-146 [facility] Serum or plasma total carbon dioxide measurement (moles/volume)Ordered By: Raul Quan on 10-06-2021 CO2 [Moles/Vol] 25.1 mmol/L 22.0-30.0 [facility] Serum or plasma urea nitroge n measurement (mass/volume)Ordered By: Raul Quan on 10-06-2021 Urea nitrogen [Mass/Vol] 13 mg/dL 9-23 [facility] CBC AUTO DIFFon 09-22-2021 BASO # 0.0 103/ul Normal 0.0-0.1 [facility] Comment on above: Performed By: #### C BC #### [facility] [address] [address] [address] Jodi Oglesby Basophils/100 WBC (Bld) 0.3 % Normal 0.2-2.0 [facility] Comment on above: Performed By: #### C BC #### [facility] [address] [place], [place] [address] Dr. Jodi Oglesby EO # 0.1 103/ul Normal 0.0-0.7 [facility] Comment on above: Performed By: #### C BC #### [facility] [address] [place] [address] Dr. Jodi Oglesby Eosinophils/100 WBC (Bld) 0.8 % Critically low 0.9-7.0 [facility] Comment on above: Performed By: #### C BC #### [facility] [address] [place] [address] Dr. Jodi Oglesby Erythrocyte distribution width (RBC) [Ratio] 12.5 % Normal 11.0-15.0 [facility] Comment on above: Performed By: #### C BC #### [facility] [address] [place] [address] Dr. Jodi Oglesby Hematocrit (Bld) [Volume fraction] 43.6 % Normal 42.0-54.0 [facility] Comment on above: Performed By: #### C BC #### [facility] [address] [place] [address] Dr. Jodi Oglesby Hemoglobin (Bld) [Mass/Vol] 14.1 g/dL Normal 14.0-18.0 [facility] Comment on above: Performed By: #### C BC #### [facility] [address] [place] [address] Dr. Jodi Oglesby IG # 0.03 10e3/ul Normal 0.00-0.03 [facility] Comment on above: Performed By: #### C BC #### [facility] [address] [place] [address] Dr. Jodi Oglesby IG % 0.3 % Normal 0.0-0.5 [facility] Comment on above: Performed By: #### C BC #### [facility] [address] [place] [address] Dr. Jodi Oglesby LYMPH # 1.5 103/ul Normal 1.2-3.8 [facility] Comment on above: Performed By: #### C BC #### [facility] [address] [place] [address] Dr. Jodi Oglesby Lymphocytes/100 WBC (Bld) 17.2 % Critically low 20.5-60.0 [facility] Comment on above: Performed By: #### C BC #### [facility] [address] [place] [address] Dr. Jodi Oglesby MANUAL DIFF REQ NO Normal [facility] Comment on above: Performed By: #### C BC #### [facility] [address] [place] [address] Dr. Jodi Oglesby MCH (RBC) [Entitic mass] 31.1 pg Normal 25.9-34.0 [facility] Comment on above: Performed By: #### C BC #### [facility] [address] [place] [address] Dr. Jodi Oglesby MCHC (RBC) [Mass/Vol] 32.3 g/dL Normal 29.9-35.2 [facility] Comment on above: Performed By: #### C BC #### [facility] [address] [place] [address] Dr. Jodi Oglesby MCV (RBC) [Entitic vol] 96.0 fL Critically high 80.0-94.0 [facility] Comment on above: Performed By: #### C BC #### [facility] [address] [place] [address] Dr. Jodi Oglesby MONO # 1.0 103/ul Critically high 0.3-0.8 [facility] Comment on above: Performed By: #### C BC #### [facility] [address] [place] [address] Dr. Jodi Oglesby Monocytes/100 WBC (Bld) 10.8 % Normal 1.7-12.0 [facility] Comment on above: Performed By: #### C BC #### [facility] [address] [place] [address] Dr. Jodi Oglesby NEUT # 6.2 103/ul Normal 1.4-6.5 [facility] Comment on above: Performed By: #### C BC #### [facility] [address] [place] [address] Dr. Jodi Oglesby Neutrophils/100 WBC (Bld) 70.6 % Normal 43.0-75.0 [facility] Comment on above: Performed By: #### C BC #### [facility] [address] [address] [address] Jodi Oglesby Platelet mean volume (Bld) [Entitic vol] 9.6 fL Normal 9.5-13.5 [facility] Comment on above: Performed By: #### C BC #### [facility] [address] [address] [address] Jodi Oglesby PLT 206 103/ul Normal 150-450 [facility] Comment on above: Performed By: #### C BC #### [facility] [address] [place] [address] Dr. Jdoi Oglesby RBC 4.54 106/ul Critically low 4.70-6.10 [facility] Comment on above: Performed By: #### C BC #### [facility] [address] [place] [address] Dr. Jodi Oglesby WBC 8.8 103/ul Normal 4.0-11.0 [facility] Comment on above: Performed By: #### C BC #### [facility] [address] [place] [address] Dr. Jodi Oglesby PROF CHEM 8 (BAS METB)on Anion gap [Moles/Vol] 9.5 mmol/L Normal [facility] Comment on above: Performed By: #### B MP #### [facility] [address] [place] [address] Dr. Jodi Oglesby Calcium [Mass/Vol] 9.4 mg/dL Normal 8.5-10.1 [facility] Comment on above: Performed By: #### B MP #### [facility] [address] [place] [address] Dr. Jodi Oglesby Chloride [Moles/Vol] 100 mmol/L Normal 98-107 [facility] Comment on above: Performed By: #### B MP #### [facility] [address] [place] [address] Dr. Jodi Oglesby CO2 [Moles/Vol] 33.2 mmol/L Critically high 21.0-32.0 [facility] Comment on above: Performed By: #### B MP #### [facility] [address] [address] [address] Jodi Oglesby Creatinine [Mass/Vol] 0.99 mg/dL Normal 0.70-1.30 [facility] Comment on above: Performed By: #### B MP #### [facility] [address] [address] [address] Jodi Oglesby EGFR-AF THAI >60 Normal >=60 [facility] Comment on above: Performed By: #### B MP #### [facility] [address] [address] [address] Jodi Oglesby EGFR-NON AF THAI >60 Normal >=60 [facility] Comment on above: Performed By: #### B MP #### [facility] [address] [address] [address] Jodi Oglesby Glucose [Mass/Vol] 109 mg/dL Critically high 74-106 [facility] Comment on above: Performed By: #### B MP #### [facility] [address] [place] [address] Dr. Jodi Oglesby Potassium [Moles/Vol] 4.7 mmol/L Normal 3.5-5.1 [facility] Comment on above: Performed By: #### B MP #### [facility] [address] [place] [address] Dr. Jodi Oglesby Sodium [Moles/Vol] 138 mmol/L Normal 136-145 [facility] Comment on above: Performed By: #### B MP #### [facility] [address] [address] [address] Jodi Oglesby Urea nitrogen [Mass/Vol] 17.0 mg/dL Normal 7.0-18.0 [facility] Comment on above: Performed By: #### B MP #### [facility] [address] [place] [address] Dr. Jodi Oglesby Urea nitrogen/Creatinine [Mass ratio] 17.2 mg/mg Normal [facility] Comment on above: Performed By: #### B MP #### [facility] [address] [address] [address] Jodi Oglesby Creatinine (Bld) [Mass/Vol]O rdered By: Tamar Perea on 09-18-2021 Creatinine [Mass/Vol] 0.8 mg/dL 0.6-1.3 [facility] Comment on above: ER/ESD physician is notified/shown all ISTAT results. Critical values may be confirmed by laboratory testing if deemed necessary by ER attending doctor. No Panel InformationOrdered By: Tamar Perea on 09-18-2021 POC Estimated GFR > 60 [facility] Comment on above: GFR estimated refere nce range: According to KDOQI guidelines, <60 ml/min/1.73m2 is sufficient to diagnose a patient with chronic kidney disease. POC Estimated GFR Non- Amer > 60 [facility] CBC AUTO DIFFon 08-12-2021 BASO # 0.0 103/ul Normal 0.0-0.1 [facility] Comment on above: Performed By: #### C BC #### [facility] [address] [place] [address] Dr. Jodi Oglesby Basophils/100 WBC (Bld) 0.3 % Normal 0.2-2.0 [facility] Comment on above: Performed By: #### C BC #### [facility] [address] [place] [address] Dr. Jodi Oglesby EO # 0.1 103/ul Normal 0.0-0.7 [facility] Comment on above: Performed By: #### C BC #### [facility] [address] [address] [address] Jodi Oglesby Eosinophils/100 WBC (Bld) 1.8 % Normal 0.9-7.0 [facility] Comment on above: Performed By: #### C BC #### [facility] [address] [place] [address] Dr. Jodi Oglesby Erythrocyte distribution width (RBC) [Ratio] 12.6 % Normal 11.0-15.0 [facility] Comment on above: Performed By: #### C BC #### [facility] [address] [place] [address] Dr. Jodi Oglesby Hematocrit (Bld) [Volume fraction] 40.9 % Critically low 42.0-54.0 [facility] Comment on above: Performed By: #### C BC #### [facility] [address] [place] [address] Dr. Jodi Oglesby Hemoglobin (Bld) [Mass/Vol] 13.4 g/dL Critically low 14.0-18.0 [facility] Comment on above: Performed By: #### C BC #### [facility] [address] [place] [address] Dr. Jodi Oglesby IG # 0.03 10e3/ul Normal 0.00-0.03 [facility] Comment on above: Performed By: #### C BC #### [facility] [address] [place] [address] Dr. Jodi Oglesby IG % 0.4 % Normal 0.0-0.5 [facility] Comment on above: Performed By: #### C BC #### [facility] [address] [place] [address] Dr. Jodi Oglesby LYMPH # 1.4 103/ul Normal 1.2-3.8 [facility] Comment on above: Performed By: #### C BC #### [facility] [address] [place] [address] Dr. Jodi Oglesby Lymphocytes/100 WBC (Bld) 18.6 % Critically low 20.5-60.0 [facility] Comment on above: Performed By: #### C BC #### [facility] [address] [place] [address] Dr. Jodi Oglesby MCH (RBC) [Entitic mass] 31.5 pg Normal 25.9-34.0 [facility] Comment on above: Performed By: #### C BC #### [facility] [address] [place] [address] Dr. Jodi Oglesby MCHC (RBC) [Mass/Vol] 32.8 g/dL Normal 29.9-35.2 [facility] Comment on above: Performed By: #### C BC #### [facility] [address] [place] [address] Dr. Jodi Oglesby MCV (RBC) [Entitic vol] 96.0 fL Critically high 80.0-94.0 [facility] Comment on above: Performed By: #### C BC #### [facility] [address] [place] [address] Dr. Jodi Oglesby MONO # 0.7 103/ul Normal 0.3-0.8 [facility] Comment on above: Performed By: #### C BC #### [facility] [address] [place] [address] Dr. Jodi Oglesby Monocytes/100 WBC (Bld) 9.7 % Normal 1.7-12.0 [facility] Comment on above: Performed By: #### C BC #### [facility] [address] [place] [address] Dr. Jodi Oglesby NEUT # 5.1 103/ul Normal 1.4-6.5 [facility] Comment on above: Performed By: #### C BC #### [facility] [address] [place] [address] Dr. Jodi Oglesby Neutrophils/100 WBC (Bld) 69.2 % Normal 43.0-75.0 [facility] Comment on above: Performed By: #### C BC #### [facility] [address] [place] [address] Dr. Jodi Oglesby Platelet mean volume (Bld) [Entitic vol] 9.8 fL Normal 9.5-13.5 [facility] Comment on above: Performed By: #### C BC #### [facility] [address] [place] [address] Dr. Jodi Oglesby PLT 195 103/ul Normal 150-450 [facility] Comment on above: Performed By: #### C BC #### [facility] [address] [place] [address] Dr. Jodi Oglesby RBC 4.26 106/ul Critically low 4.70-6.10 [facility] Comment on above: Performed By: #### C BC #### [facility] [address] [place] [address] Dr. Jodi Oglesby WBC 7.4 103/ul Normal 4.0-11.0 [facility] Comment on above: Performed By: #### C BC #### [facility] [address] [place] [address] Dr. Jodi Oglesby ASHLEY - TSHon 08-12-2021 TSH 1.879 uIU/mL Normal 0.358-3.740 [facility] Comment on above: Performed By: #### D ATTSH, DATBMP #### [facility] [address] [place] [address] Dr. Jodi Oglesby TSH RANGE SEE BELOW Normal [facility] Comment on above: Result Comment: <0.3 4 UIU/ml HYPERTHYROID 0.34-5.60 UIU/ml EUTHYROID >5.60 UIU/ml HYPOTHYROID Performed By: #### D ATTKENDELL, DATBMP #### [facility] [address] [place] [address] Dr. Jodi Oglesby ASHLEY- BMP WITH LIPIDon 2021 Anion gap [Moles/Vol] 11.4 mmol/L Normal [facility] Comment on above: Performed By: #### D ATTSH, DATBMP #### [facility] [address] [place] [address] Dr. Jodi Oglesby Calcium [Mass/Vol] 8.7 mg/dL Normal 8.5-10.1 [facility] Comment on above: Performed By: #### D ATTSH, DATBMP #### [facility] [address] [place] [address] Dr. Jodi Oglesby Chloride [Moles/Vol] 105 mmol/L Normal 98-107 [facility] Comment on above: Performed By: #### D ATTSH, DATBMP #### [facility] [address] [place] [address] Dr. Jodi Oglesby Cholesterol [Mass/Vol] 113 mg/dL Normal <=200 [facility] Comment on above: Performed By: #### D ATTSH, DATBMP #### [facility] [address] [place] [address] Dr. Jodi Oglesby Cholesterol in HDL [Mass/Vol] 47 mg/dL Normal 40-60 [facility] Comment on above: Performed By: #### D ATTSH, DATBMP #### [facility] [address] [place] [address] Dr. Jodi Oglesby Cholesterol in LDL [Mass/Vol] 58.0 mg/dL Normal [facility] Comment on above: Performed By: #### D ATTSH, DATBMP #### [facility] [address] [place] [address] Dr. Jodi Oglesby CO2 [Moles/Vol] 29.0 mmol/L Normal 21.0-32.0 [facility] Comment on above: Performed By: #### D ATTKENDELL, DATBMP #### [facility] [address] [place] [address] Dr. Jodi Oglesby Creatinine [Mass/Vol] 0.99 mg/dL Normal 0.70-1.30 [facility] Comment on above: Performed By: #### D ATTSH, DATBMP #### [facility] [address] [place] [address] Dr. Jodi Oglesby EGFR-AF THAI >60 Normal >=60 [facility] Comment on above: Performed By: #### D ATTSH, DATBMP #### [facility] [address] [place] [address] Dr. Jodi Oglesby EGFR-NON AF THAI >60 Normal >=60 [facility] Comment on above: Performed By: #### D ATTSH, DATBMP #### [facility] [address] [place] [address] Dr. Jodi Oglesby Glucose [Mass/Vol] 116 mg/dL Critically high 74-106 [facility] Comment on above: Performed By: #### D ATTSH, DATBMP #### [facility] [address] [place] [address] Dr. Jodi Oglesby HDL NORMAL > or = 60 mg/dl - LO W CARDIOVASCULAR RISK <40 mg/dl - HIGH CARDIOVASCULAR RISK Normal [facility] Comment on above: Performed By: #### D ATTSH, DATBMP #### [facility] [address] [place] [address] Dr. Jodi Oglesby LDL CALC NORMAL SEE BELOW Normal [facility] Comment on above: Result Comment: <100 mg/dl OPTIMAL 100 - 129 mg/dl NEAR OR ABOVE OPTIMAL 130 - 159 mg/dl BORDERLINE HIGH 160 - 189 mg/dl HIGH >190 mg/dl VERY HIGH Performed By: #### D ATTSH, DATBMP #### [facility] [address] [address] [address] Jodi Oglesby Potassium [Moles/Vol] 4.4 mmol/L Normal 3.5-5.1 [facility] Comment on above: Performed By: #### D ATTKENDELL, DATBMP #### [facility] [address] [address] [address] Jodi Oglesby Sodium [Moles/Vol] 141 mmol/L Normal 136-145 [facility] Comment on above: Performed By: #### D ATTKENDELL, DATBMP #### [facility] [address] [place] [address] Dr. Jodi Oglesby Triglyceride [Mass/Vol] 40 mg/dL Normal <=150 [facility] Comment on above: Performed By: #### D ATTKENDELL, DATBMP #### [facility] [address] [address] [address] Jodi Oglesby Urea nitrogen [Mass/Vol] 16.0 mg/dL Normal 7.0-18.0 [facility] Comment on above: Performed By: #### D ATTKENDELL, DATBMP #### [facility] [address] [address] [address] Jodi Oglesby Urea nitrogen/Creatinine [Mass ratio] 16.2 mg/mg Normal [facility] Comment on above: Performed By: #### D ATTKENDELL, DATBMP #### [facility] [address] [place] [address] Dr. Jodi Oglesby VLDL CALC 8.0 mg/dL Normal [facility] Comment on above: Performed By: #### D ATTSH, DATBMP #### [facility] [address] [place] [address] Dr. Jodi Oglesby GLYCOHEMOGLOBIN A1Con 06-07- 2022 ADA RECOMMENDATION SEE BELOW Normal [facility] Comment on above: Result Comment: ADA RECOMMENDED LIMIT 4.0 - 6.0 ADA THERAPEUTIC TARGET < 7.0 ACTION SUGGESTED > 7.0 Performed By: #### D ATA1C #### [facility] [address] [address] [address] Jodi Oglesby Glucose [Mass/Vol] 131 mg/dL Normal [facility] Comment on above: Performed By: #### D ATA1C #### [facility] [address] [address] [address] Jodi Oglesby HbA1c (Bld) [Mass fraction] 6.2 % Normal 4.5-6.2 [facility] Comment on above: Performed By: #### D ATA1C #### [facility] [address] [address] [address] Jodi Oglesby CNOVon 12-11-2020 CNOV Office Visit ([facility] ) -- CHICO BAKER ([id number]) 1940 M Date Time Provider Department 12/11/20 10:45 AM POWER CATHERINE During your visit today, we recorded the following information about you: Pulse Blood pressure Weight Height 60/minute 122/78 67.6 kg 1.702 m Power Catherine MD 12/11/2020 11:17 AM Signed [facility] OUTPATIENT VISIT DATE December 11, 2020 OUTPATIENT VISIT TYPE EST PRIMARY CARE PHYSICIAN: Shailesh Dunham (Jere) [address] [place] [address] REFERRING PHYSICIAN Power Catherine [address] Count includes the [facility] [address] CHIEF COMPLAINT: Patient presents with: Established Patient [...] Power Catherine MD Referring Provider: POWER CATHERINE [[id number]] Allergies As of Date: 12/11/2020 Noted Allergy Reaction SHALINI INHIBITORS 05/09/2015 16 - Unknown GADOLINIUM-CONTAINING CONTRAST ME*05/09/2015 16 - Unknown TETANUS VACCINES AND TOXOID 05/16/2015 16 - Unknown Date Reviewed: 12/11/2020 Reviewed by: Harika Menjivar - Fully Assessed Reason for Visit: Established Patient [175] Follow Up [171] Primary Visit Diagnosis: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 - nitroglycerin sublingual (NITROQUICK) 0.3 mg SL tablet (more content not included)... Normal [facility] Jessa 10-30-2020 JOANNAN Telephone ([facility]) -- CHICO BAKER ([id number]) 1940 M Date Time Provider Department 10/30/20 [...] [I71.4] Order(s):US ABD AORTA [facility] [[id number]] Order #: [id number] FUTURE Prescriptions as of 11/04/2020 - aspirin, [...] Status:Closed by SHERI MOLINA on 11/04/20 Normal [facility] Vital Signs Date Time Vital Sign Value Performing Clinician Facility 01-13-2023 08:49-0500 Blood Pressure Location Ivelisse Hassan [facility] 01-13-2023 08:49-0500 Diastolic blood pressure 74 mm[Hg] Ivelisse Hassan [facility] 01-13-2023 08:49-0500 Heart rate 68 /min Ivelisse Lue [facility] 01-13-2023 08:49-0500 Respiratory rate 16 /min Ivelisse Lue [facility] 01-13-2023 08:49-0500 Systolic blood pressure 156 mm[Hg] Ivelisse Lue [facility] 11-10-2022 10:30-0400 Body height 170.18 cm Raul Quan Other [facility] Other 11-10-2022 10:30-0400 Body mass index (BMI) [Ratio] 20.99 kg/m2 Raul Quan Other [facility] Other 11-10-2022 10:30-0400 Body temperature 97.8 [degF] Raul Quan Other [facility] Other 11-10-2022 10:30-0400 Body weight 60.78 kg Raul Quan Other [facility] Other 11-10-2022 10:30-0400 Diastolic blood pressure 64 mm[Hg] Raul Quan Other [facility] Other 11-10-2022 10:30-0400 SaO2% (BldA) [Mass fraction] 98 % Raul Quan Other [facility] Other 11-10-2022 10:30-0400 Systolic blood pressure 110 mm[Hg] Raul Quan Other [facility] Other 10-07-2022 08:49-0400 Blood Pressure Location Ivelisse Lue [facility] 10-07-2022 08:49-0400 Diastolic blood pressure 74 mm[Hg] Ivelisse Lue [facility] 10-07-2022 08:49-0400 Heart rate 75 /min Ivelisse Lue [facility] 10-07-2022 08:49-0400 Systolic blood pressure 139 mm[Hg] Ivelisse Lue [facility] 08-04-2022 11:15-0400 Body height 170.18 cm Raul Quan Other [facility] Other 08-04-2022 11:15-0400 Body mass index (BMI) [Ratio] 21.77 kg/m2 Raul Quan Other [facility] Other 08-04-2022 11:15-0400 Body temperature 97.8 [degF] Raul Quan Other [facility] Other 08-04-2022 11:15-0400 Body weight 63.05 kg Raul Quan Other [facility] Other 08-04-2022 11:15-0400 Diastolic blood pressure 68 mm[Hg] Raul Quan Other [facility] Other 08-04-2022 11:15-0400 SaO2% (BldA) [Mass fraction] 97 % Raul Quan Other Located Within [facility] [employer] Other 08-04-2022 11:15-0400 Systolic blood pressure 108 mm[Hg] Raul Quan Other Located Within [facility] [employer] Other 07-09-2022 08:00-0400 Body temperature 98.6 [degF] DO Shailesh Ball Work Phone: [facility] 07-09-2022 08:00-0400 Diastolic blood pressure 72 mm[Hg] DO Shailesh Ball Work Phone: [facility] 07-09-2022 08:00-0400 Heart rate 69 /min DO Shailesh Ball Work Phone: [facility] 07-09-2022 08:00-0400 Respiratory rate 16 /min DO Shailesh Ball Work Phone: [facility] 07-09-2022 08:00-0400 SaO2% (BldA) [Mass fraction] 97 % DO Shailesh Ball Work Phone: [facility] 07-09-2022 08:00-0400 Systolic blood pressure 154 mm[Hg] DO Shailesh Ball Work Phone: [facility] 07-09-2022 06:00-0400 Body weight 65.8 kg DO Shailesh Ball Work Phone: [facility] 07-08-2022 10:52-0400 Inhaled oxygen flow rate 8 L/min DO Shailesh Ball Work Phone: [facility] 07-08-2022 08:34-0400 Body height 167.64 cm DO Shailesh Ball Work Phone: [facility] 07-08-2022 08:34-0400 Body mass index (BMI) [Ratio] 22.7 kg/m2 DO Shailesh Ball Work Phone: [facility] 06-24-2022 09:27-0400 Blood Pressure Location Ivelisse Hassan [facility] 06-24-2022 09:27-0400 Diastolic blood pressure 75 mm[Hg] Ivelisse Lue [facility] 06-24-2022 09:27-0400 Heart rate 66 /min Ivelisse Lue [facility] 06-24-2022 09:27-0400 Respiratory rate 16 /min Ivelisse Lue [facility] 06-24-2022 09:27-0400 Systolic blood pressure 120 mm[Hg] Ivelisse Lue [facility] 05-21-2022 09:30-0400 Body height 170.18 cm Shailesh Ball Other Located Within [facility] [employer] Other 05-21-2022 09:30-0400 Body mass index (BMI) [Ratio] 21.8 kg/m2 Shailesh Ball Other Located Within [facility] [employer] Other 05-21-2022 09:30-0400 Body weight 63.14 kg Shailesh Ball Other Located Within [facility] [employer] Other 05-21-2022 09:30-0400 Diastolic blood pressure 73 mm[Hg] Shailesh Ball Other Located Within [facility] [employer] Other 05-21-2022 09:30-0400 Respiratory rate 12 /min Shailesh Ball Other Located Within [facility] [employer] Other 05-21-2022 09:30-0400 Systolic blood pressure 121 mm[Hg] Shailesh Ball Other Located Within [facility] [employer] Other 05-19-2022 11:00-0400 Body height 170.18 cm Tamar Perea Other [facility] Other 05-19-2022 11:00-0400 Body mass index (BMI) [Ratio] 22.02 kg/m2 Tamar Perea Other [facility] Other 05-19-2022 11:00-0400 Body temperature 97.5 [degF] Tamar Perea Other [facility] Other 05-19-2022 11:00-0400 Body weight 63.78 kg Tamar Perea Other [facility] Other 05-19-2022 11:00-0400 Diastolic blood pressure 76 mm[Hg] Tamar Perea Other [facility] Other 05-19-2022 11:00-0400 SaO2% (BldA) [Mass fraction] 98 % Tamar Perea Other [facility] Other 05-19-2022 11:00-0400 Systolic blood pressure 148 mm[Hg] Tamar Perea Other [facility] Other 04-15-2022 08:57-0500 Blood Pressure Location Ivelisse Lue [facility] 04-15-2022 08:57-0500 Diastolic blood pressure 78 mm[Hg] Ivelisse Lue [facility] 04-15-2022 08:57-0500 Heart rate 68 /min Ivelisse Lue [facility] 04-15-2022 08:57-0500 Respiratory rate 16 /min Ivelisse Lue [facility] 04-15-2022 08:57-0500 Systolic blood pressure 122 mm[Hg] Ivelisse Hassan [facility] 03-10-2022 11:30-0500 Body height 170.18 cm Raul Quan Other [facility] Other 03-10-2022 11:30-0500 Body mass index (BMI) [Ratio] 21.2 kg/m2 Raul Lawrencerejakub Other [facility] Other 03-10-2022 11:30-0500 Body temperature 97.8 [degF] Raul Quan Other [facility] Other 03-10-2022 11:30-0500 Body weight 61.42 kg Raul Quan Other [facility] Other 03-10-2022 11:30-0500 Diastolic blood pressure 64 mm[Hg] Raul Quan Other [facility] Other 03-10-2022 11:30-0500 SaO2% (BldA) [Mass fraction] 98 % Raul Quan Other [facility] Other 03-10-2022 11:30-0500 Systolic blood pressure 108 mm[Hg] Raul Lawrencerejakub Other [employer] Other 02-25-2022 11:09-0500 Blood Pressure Location IVA ANTOINE [facility] 02-25-2022 11:09-0500 Diastolic blood pressure 63 mm[Hg] IVA ARASH [facility] 02-25-2022 11:09-0500 Heart rate 64 /min IVA ARASH [facility] 02-25-2022 11:09-0500 Systolic blood pressure 105 mm[Hg] IVA ARASH [facility] 02-18-2022 14:12-0500 Blood Pressure Location IVA ARASH [facility] 02-18-2022 14:12-0500 Diastolic blood pressure 83 mm[Hg] IVA ARASH [facility] 02-18-2022 14:12-0500 Heart rate 70 /min IVA ARASH [facility] 02-18-2022 14:12-0500 Systolic blood pressure 142 mm[Hg] IVA ARASH [facility] 02-11-2022 08:42-0500 Blood Pressure Location Ivelisse Lue [facility] 02-11-2022 08:42-0500 Diastolic blood pressure 73 mm[Hg] Ivelisse Lue [facility] 02-11-2022 08:42-0500 Heart rate 68 /min Ivelisse Lue [facility] 02-11-2022 08:42-0500 Respiratory rate 16 /min Ivelisse Lue [facility] 12-07-2022 08:42-0500 Systolic blood pressure 150 mm[Hg] Ivelisse Lue [facility] 02-05-2022 08:00-0500 Body temperature 99.1 [degF] DO Shailesh Ball Work Phone: [facility] 02-05-2022 08:00-0500 Diastolic blood pressure 76 mm[Hg] DO Shailesh Ball Work Phone: [facility] 02-05-2022 08:00-0500 Heart rate 78 /min DO Shailesh Ball Work Phone: [facility] 02-05-2022 08:00-0500 Respiratory rate 16 /min DO Shailesh Ball Work Phone: [facility] 02-05-2022 08:00-0500 SaO2% (BldA) [Mass fraction] 95 % DO Shailesh Ball Work Phone: [facility] 02-05-2022 08:00-0500 Systolic blood pressure 168 mm[Hg] DO Shailesh Ball Work Phone: [facility] 02-05-2022 03:21-0500 Body weight 64.1 kg DO Shailesh Ball Work Phone: [facility] 02-04-2022 11:43-0500 Inhaled oxygen flow rate 6 L/min DO Shailesh Ball Work Phone: [facility] 02-04-2022 09:31-0500 Body height 167.64 cm DO Shailesh Ball Work Phone: [facility] 02-04-2022 09:31-0500 Body mass index (BMI) [Ratio] 23.3 kg/m2 DO Shailesh Ball Work Phone: [facility] 01-20-2022 12:30-0500 Body height 170.18 cm Raul Quan Other [facility] Other 01-20-2022 12:30-0500 Body mass index (BMI) [Ratio] 21.92 kg/m2 Raul Buehrer Other [facility] Other 01-20-2022 12:30-0500 Body temperature 97.7 [degF] Raul Buehrer Other [facility] Other 01-20-2022 12:30-0500 Body weight 63.5 kg Raul Buehrer Other [facility] Other 01-20-2022 12:30-0500 Diastolic blood pressure 64 mm[Hg] Raul Buehrer Other [facility] Other 01-20-2022 12:30-0500 SaO2% (BldA) [Mass fraction] 99 % Raul Buehrer Other [facility] Other 01-20-2022 12:30-0500 Systolic blood pressure 116 mm[Hg] Raul Buehrer Other [facility] Other 01-05-2022 11:15-0400 Body height 170.18 cm Raul Buehrer Other [facility] Other 01-05-2022 11:15-0400 Body mass index (BMI) [Ratio] 21.92 kg/m2 Raul Buehrer Other [facility] Other 01-05-2022 11:15-0400 Body temperature 96 [degF] Raul Buehrer Other [facility] Other 01-05-2022 11:15-0400 Body weight 63.5 kg Raul Buehrer Other [facility] Other 01-05-2022 11:15-0400 Diastolic blood pressure 58 mm[Hg] Raul Osorior Other [facility] Other 01-05-2022 11:15-0400 SaO2% (BldA) [Mass fraction] 99 % Raul Quan Other [facility] Other 01-05-2022 11:15-0400 Systolic blood pressure 100 mm[Hg] Raul Osorior Other [facility] Other 11-24-2021 12:30-0400 Body height 170.18 cm Tamar Martinezmoy Other [facility] Other 11-24-2021 12:30-0400 Body mass index (BMI) [Ratio] 21.92 kg/m2 Tamar Martinezmoy Other [facility] Other 11-24-2021 12:30-0400 Body temperature 97.5 [degF] Tamar Martinezjerardokhalida Other [facility] Other 11-24-2021 12:30-0400 Body weight 63.5 kg Tamar Martinezmoy Other [facility] Other 11-24-2021 12:30-0400 Diastolic blood pressure 50 mm[Hg] Tamar Brit Other [facility] Other 11-24-2021 12:30-0400 SaO2% (BldA) [Mass fraction] 98 % Tamar Martinezmoy Other [facility] Other 11-24-2021 12:30-0400 Systolic blood pressure 96 mm[Hg] Tamar Perea Other Located Within [facility] [employer] Other 10-21-2021 07:30-0400 50 1 Shailesh E Ball Work Phone: [facility] [address] [place] Work Phone: Comment on above: [id number] 10-15-2021 08:27-0400 Body height 167.64 cm DO Shailesh Ball Work Phone: [facility] 10-15-2021 08:27-0400 Body temperature 97.7 [degF] DO Shailesh Ball Work Phone: [facility] 10-15-2021 08:27-0400 Body weight 66 kg DO Shailesh Ball Work Phone: [facility] 10-15-2021 08:27-0400 Diastolic blood pressure 75 mm[Hg] DO Shailesh Ball Work Phone: [facility] 10-15-2021 08:27-0400 Heart rate 73 /min DO Shailesh Ball Work Phone: [facility] 10-15-2021 08:27-0400 Respiratory rate 16 /min DO Shailesh Ball Work Phone: [facility] 10-15-2021 08:27-0400 SaO2% (BldA) [Mass fraction] 97 % DO Shailesh Ball Work Phone: [facility] 10-15-2021 08:27-0400 Systolic blood pressure 143 mm[Hg] DO Shailesh Ball Work Phone: [facility] 09-30-2021 13:30-0400 Body height 170.18 cm Tamar Perea Other [facility] [employer] Other 09-30-2021 13:30-0400 Body mass index (BMI) [Ratio] 24.27 kg/m2 Tamar Perea Other [facility] Other 09-30-2021 13:30-0400 Body temperature 97.4 [degF] Tamar Zhuo Other [facility] Other 09-30-2021 13:30-0400 Body weight 70.31 kg Tamar Zhuo Other [facility] Other 09-30-2021 13:30-0400 Diastolic blood pressure 70 mm[Hg] Tamar Zhuo Other [facility] Other 09-30-2021 13:30-0400 SaO2% (BldA) [Mass fraction] 98 % Tamar Zhuo Other [facility] Other 09-30-2021 13:30-0400 Systolic blood pressure 140 mm[Hg] Tamar Martinezjerardoo Other [facility] Other 09-15-2021 11:00-0400 Body height 170.18 cm Tamar Perea Other [facility] Other 09-15-2021 11:00-0400 Body mass index (BMI) [Ratio] 24.27 kg/m2 Tamar Zhuo Other [facility] Other 09-15-2021 11:00-0400 Body temperature 96.4 [degF] Tamar Zhuo Other [facility] Other 09-15-2021 11:00-0400 Body weight 70.31 kg Tamar Zhuo Other [facility] Other 09-15-2021 11:00-0400 Diastolic blood pressure 72 mm[Hg] Tamar Perea Other [facility] Other 09-15-2021 11:00-0400 SaO2% (BldA) [Mass fraction] 98 % Tamar Perea Other [facility] Other 09-15-2021 11:00-0400 Systolic blood pressure 138 mm[Hg] Tamar Perea Other [facility] Other 07-28-2021 10:45-0400 Body height 170.18 cm Raul Quan Other [facility] Other 07-28-2021 10:45-0400 Body mass index (BMI) [Ratio] 24.27 kg/m2 Raul Lawrencerer Other [facility] Other 07-28-2021 10:45-0400 Body temperature 96.6 [degF] Raul Lawrencerejakub Other [employer] Other 07-28-2021 10:45-0400 Body weight 70.31 kg Raul Lawrencerer Other [facility] Other 07-28-2021 10:45-0400 Diastolic blood pressure 78 mm[Hg] Raul Lawrencerer Other [facility] Other 07-28-2021 10:45-0400 SaO2% (BldA) [Mass fraction] 98 % Raul Lawrencerer Other [facility] Other 07-28-2021 10:45-0400 Systolic blood pressure 190 mm[Hg] Raul Buehrer Other [employer] Other Encounters Encounter Date Encounter Type Care Provider Facility Start: 03-24-2023 ambulatory Ivelisse Hassan Facility:C D:[id number] Start: 01-13-2023 End: 01-14-2023 ambulatory Ivelisse M. Lue Facility:[facility] Start: 01-13-2023 End: 01-13-2023 Patient encounter procedure Ivelisse Schreiber Yennicaleb [facility] Start: 11-10-2022 Office outpatient vi sit 25 minutes Raul Quan [facility] Vascular Surgery Start: 11-10-2022 End: 11-10-2022 ambulatory DO Shailesh Dunham Work Phone: [employer] Other Start: 11-10-2022 End: 11-10-2022 Patient encounter procedure DO Shailesh Enrico Work Phone: [facility] Ctr-Ultrasound [facility] Start: 10-07-2022 End: 10-08-2022 ambulatory Ivelisse Schreiber Yennicaleb Facility:[facility] Start: 10-07-2022 End: 10-07-2022 Patient encounter procedure Ivelisse Hassan [facility] Start: 08-04-2022 End: 08-04-2022 ambulatory Raul Quan Other [facility] Other Start: 08-04-2022 Postop follow up vis it related to original px Raul Quan [facility] Vascular Surgery Start: 07-28-2022 End: 07-29-2022 ambulatory Ivelissenaseem Hassan Facility:[facility] Start: 07-14-2022 ambulatory Ivelisse M. Yennie Facility:C [id number] Start: 07-09-2022 End: 07-09-2022 ambulatory Shailesh Ball Other [facility] Other Start: 07-09-2022 Telephone encounter Shailesh Dunham [facility] Start: 07-08-2022 End: 07-08-2022 ambulatory Shailesh Dunham Other [facility] Other Start: 07-08-2022 Telephone encounter Shailesh Dunham FP [facility] Start: 07-08-2022 End: 07-09-2022 Evaluation and management of inpatient Shailesh Ball Facility:[facility] Start: 07-08-2022 End: 07-09-2022 Evaluation and management of inpatient DO Shailesh Dunham Work Phone: [facility] Ctr-4 [place] [facility] Work Phone: Start: 07-01-2022 End: 07-01-2022 ambulatory Shailesh Dunham Facility:[facility] Start: 07-01-2022 End: 07-01-2022 ambulatory DO Shailesh Dunham Work Phone: [facility] Ctr Work Phone: Start: 07-01-2022 End: 07-01-2022 Patient encounter procedure DO Shailesh Dunham Work Phone: [facility] Bnt-Ccl-[facility] Testing Work Phone: Start: 06-24-2022 End: 06-25-2022 ambulatory Ivelisse Hassan Facility:[facility] Start: 06-24-2022 End: 06-24-2022 Patient encounter procedure Ivelisse Hassan [facility] Start: 05-21-2022 End: 05-21-2022 ambulatory Shailesh Dunham Other [facility] Other Start: 05-21-2022 Patient encounter procedure Shailesh Dunham [facility] Start: 05-19-2022 End: 05-19-2022 ambulatory Tamar Perea Other [facility] Other Start: 05-19-2022 Follow-up encounter Tamar Brit [facility] Start: 05-13-2022 End: 05-13-2022 ambulatory Raul Quan Other [facility] Other Start: 05-13-2022 Telephone encounter Raul STEPHENSON [facility] Start: 05-11-2022 End: 05-11-2022 ambulatory Shailesh Dunham Facility:[facility] Start: 05-11-2022 End: 05-11-2022 ambulatory DO Shailesh Dunham Work Phone: [facility] Ctr Work Phone: Start: 05-11-2022 End: 05-11-2022 Patient encounter procedure DO Shailesh Dunham Work Phone: [facility] Ctr-CT Scan [place] Work Phone: Start: 04-23-2022 End: 04-23-2022 ambulatory Raul Quan Other [facility] Other Start: 04-23-2022 Telephone encounter Raul Quan [facility] Vascular Surgery Start: 04-15-2022 End: 04-16-2022 ambulatory Ivelisse Hassan Facility:[facility] Start: 04-15-2022 End: 04-15-2022 Lab Drop off Ivelisse Hassan [facility] Start: 04-15-2022 End: 04-16-2022 ambulatory Ivelisse Hassan Facility:[facility] Start: 04-15-2022 End: 04-15-2022 Patient encounter procedure Ivelisse Hassan [facility] Start: 04-14-2022 End: 04-14-2022 ambulatory Shailesh Dunham Other [facility] Other Start: 04-14-2022 Telephone encounter Shailesh Dunham [facility] Start: 03-10-2022 End: 03-10-2022 ambulatory Raul Quan Other [place] [employer] Other Start: 03-10-2022 Office outpatient vi sit 25 minutes Raul Quan [facility] Vascular Surgery Start: 02-25-2022 End: 02-25-2022 Patient encounter procedure IVA BUSHRY [facility] Start: 02-18-2022 End: 02-18-2022 Patient encounter procedure IVA BUSHRY [facility] Start: 02-11-2022 End: 02-11-2022 Lab Drop off Ivelisse Hassan [facility] Start: 02-11-2022 End: 02-11-2022 Patient encounter procedure Ivelisse Hassan [facility] Start: 02-10-2022 End: 02-11-2022 ambulatory IVELISSE HASSAN . Facility:[facility] Start: 02-07-2022 Encounter for other preprocedural examination DR RAUL QUAN [facility] Start: 02-07-2022 Encounter for preprocedural laboratory examination DR RAUL QUAN [facility] Start: 02-04-2022 End: 02-05-2022 Evaluation and management of inpatient Shailesh Dunham Facility:[facility] Start: 02-04-2022 End: 02-05-2022 Evaluation and management of inpatient DO Shailesh Dunham Work Phone: [facility]-4 [place] [facility] Start: 02-02-2022 End: 02-03-[address] RAUL QUAN Facility:[facility] Start: 02-02-2022 End: 02-03-2022 Encounter for other preprocedural examination DR RAUL QUAN Facility:[facility] Start: 01-20-2022 Office outpatient vi sit 25 minutes Raul Quan [facility] Vascular Surgery Start: 01-20-2022 End: 01-20-2022 ambulatory DO Shailesh Dunham Work Phone: [employer] Other Start: 01-20-2022 End: 01-20-2022 Patient encounter procedure DO Shailesh Dunham Work Phone: [facility] Ctr-Ultrasound [facility] Start: 01-05-2022 End: 01-05-2022 ambulatory Raul Quan Other [place] [employer] Other Start: 01-05-2022 Office outpatient vi sit 25 minutes Raul Quan [facility] Vascular Surgery Start: 12-08-2021 End: 12-09-[address] SHAILESH DUNHAM Facility:[facility] Start: 12-02-2021 End: 12-02-[address] SHAILESH DUNHAM Facility:[facility] Start: 11-24-2021 End: 11-24-2021 ambulatory Tamar Martinezjerardokhalida Other [place] [employer] Other Start: 11-24-2021 Patient encounter procedure Tamar Brit [facility] Vascular Surgery Start: 11-11-2021 End: 11-11-[address] SHAILESH DUNHAM Facility:[facility] Start: 10-26-2021 End: 10-26-[address] SHAILESH DUNHAM Facility:[facility] Start: 10-21-2021 Patient encounter procedure Shailesh Dunham Work Phone: [facility] [address] [place] Work Phone: Start: 10-16-2021 Telephone encounter Judah Vivas MD Work Phone: [facility] Heart-Sal 250 DO Work Phone: Start: 10-15-2021 End: 10-15-2021 Evaluation and management of inpatient DO Shailesh Dunham Work Phone: [facility] Start: 10-13-2021 End: 10-13-2021 Patient encounter procedure DO Shailesh Dunham Work Phone: [facility]-Pre-Surgical Testing Start: 10-06-2021 End: 10-06-2021 Patient encounter procedure DO Shailesh Dunham Work Phone: [facility]-Pre-Surgical Testing Start: 09-30-2021 End: 09-30-2021 ambulatory Tamar Perea Other [facility] Other Start: 09-30-2021 Encounter for other preprocedural examination Tamar Brit [facility] Vascular Surgery Start: 09-30-2021 Follow-up encounter Tamar Perea [facility] Start: 09-22-2021 End: 09-23-[address] SHAILESH DUNHAM Facility:[facility] Start: 09-18-2021 End: 09-18-2021 Patient encounter procedure DO Shailesh Dunham Work Phone: [facility]-CT Scan [facility] [place] Start: 09-15-2021 End: 09-15-2021 ambulatory Tamar Perea Other [facility] Other Start: 09-15-2021 Follow-up encounter Tamar Brit [facility] Start: 08-27-2021 End: 08-27-2021 Patient encounter procedure DO Shailesh Dunham Work Phone: [facility] Ctr-Ultrasound [facility] Start: 08-12-2021 End: 08-13-[address] KURTZ LISTED REQUEST Facility:[facility] Start: 07-28-2021 End: 07-28-2021 ambulatory Raul Quan Other [facility] Other Start: 07-28-2021 Office outpatient ne w 45 minutes Raul Quan [facility] Vascular Surgery Start: 06-13-2020 End: 06-13-2020 Patient encounter procedure Lisandra Sher Work Phone: [facility] Work Phone: Patient encounter status Judah Harrington MD Work Phone: [facility] Heart-Sal 250 DO Work Phone: Procedures Date Procedure Procedure Detail Performing Clinician Start: 11-10-2022 Doppler ultrasonography of bilateral carotid arteries DO Shailesh Dunham Work Phone: Start: 07-28-2022 Cystourethroscopy with dilation of urethral stricture Ivelisse Hassan Start: 07-08-2022 Antibody screen Shailesh Dunham Comment on above: Result Comment: PERFORMED BY: [facility] [address] [place] [id number] PATHOLOGIST CARDIAC CATHETERIZATION TECHNOLOGIST ZENA CASTELLON M.D. Start: 07-08-2022 Insertion of [...] on above: Performed By: #### DATA1C #### [facility] [address] [place] [address] Dr. 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 Start: 02-04-2022 Endovascular repair of abdominal aortic aneurysm DO Shailesh Dunham Work Phone: Start: 01-20-2022 Doppler ultrasonography of bilateral carotid arteries DO Shailesh Dunham Work Phone: Start: 09-18-2021 Computed tomography angiography of abdominal and/or pelvic blood vessel DO [employer] Work Phone: Start: 08-27-2021 US scan of aorta DO [employer] Work Phone: Start: 08-27-2021 Doppler ultrasonography of bilateral carotid arteries DO [employer] Work Phone: Start: 06-13-2020 Imm. administration COVID19 [employer] Work Phone: Start: 06-13-2020 SARS-CoV-2 vaccine, 0.5ml [employer] Work Phone: Start: 10-18-2019 Transurethral prostatectomy Ivelisse Lue Start: 04-06-2019 Cystoscope, device (physical object) Ivelisse Lue Start: 10-06-2016 Colonoscopy Ivelisse Lue Comment on above: 2010 Arthroscopy of knee Ivelisse Yenni e Catheterization of left heart Ivelisse Lue Esophagogastroduodenoscopy K athy Lue Plan of Treatment Date Care Activity Detail Author Start: 07-09-2022 [facility] Start: 07-08-2022 Hospital admission [facility] Start: 07-08-2022 Patient referral to dietitian [facility] Start: 02-05-2022 [facility] Start: 02-04-2022 [facility] Start: 02-04-2022 Hospital admission [facility] Start: 10-21-2021 STRESS NUC, Provider: SAL HHVI NUCLEAR ,[id number], Status: Pen, Time: 7:30 AM STRESS NUC, Provider: SAL HHVI NUCLEAR ,[id number], Status: Pen, Time: 7:30 AM [facility]-[place] [address] DO Work Phone: Start: 10-15-2021 [facility] Ctr Work Phone: Start: 10-15-2021 OR Percutaneous EVAR AAA (Not Applicable) OR Percutaneous EVAR AAA (Not Applicable) [facility] Start: 10-15-2021 End: 10-15-2021 Evaluation and management of inpatient AAA (abdominal aortic aneurysm) [facility] Start: 10-13-2021 End: 10-13-2021 Patient encounter procedure Departed Clinical [facility] Pfu-Lhu-Jblkhrdv Testing Patient Education [facility] Ctr Work Phone: Patient referral [facility] C[facility] Work Phone: Immunizations Immunization Date Immunization Notes Care Provider David holloway 06-13-2020 [employer] COVID 19 Vaccine [facility] Comment on above: Note: Patient tolera shyann well. No signs or symptoms of adverse reactions. Patient waited a minimum of 15 minutes. NEGATED: Highlighted row has not occurred!01-13-2023 influenza virus vaccine, unspecified formulation Ivelisse Hassan [facility] Payers Date Payer Category Payer Unknown [id number] . [id number] 1957 Self-pay [id number] 1957 Unknown [id number] ..[id number] 1959 Unknown [id number] 1959 Unknown [id number] 1940 Unknown [id number] 2.16.84 0.1.568524.3.579.2.593 1942 Unknown [id number] 2.16.84 0.1.370631.3.579.2.593 1942 Unknown [id number] 2.16.84 0.1.864292.3.579.2.593 1942 Unknown [id number] 2.16.84 0.1.812860.3.579.2.593 1942 Unknown [id number] 2.16.84 0.1.576448.3.579.2.593 1942 Unknown [id number] 2.16.84 0.1.148971.3.579.2.593 1942 Unknown [id number] 2.16.84 0.1.283320.3.579.2.593 1942 Unknown [id number] 2.16.8 40.1.269532.3.579.2.727 1942 Unknown [id number] 2.16.8 40.1.798605.3.579.2.727 1942 Unknown [id number] 2.16.8 40.1.668754.3.579.2.727 1942 Unknown [id number] 2.16.8 40.1.126084.3.579.2.727 1942 Unknown [id number] 2.16.8 40.1.134275.3.579.2.727 1942 Unknown [id number] 2.16.8 40.1.674640.3.579.2.727 Self-pay Self Pay [id number] Unknown Unknown [facility] [id number] Unknown [id number] 2.16.84 0.1.676479.3.579.2.593 Social History Date Type Detail Facility Tobacco smoking status Unknown i f ever smoked [facility] Work Phone: Start: 03-08-1957 End: 03-08-1996 Sex Assigned At [facility] Start: 10-15-2021 End: 10-07-2022 Tobacco smoking status KYIS Ex-smoker (finding) [facility] Start: 1940 Sex Assigned At Male F [facility] Tobacco smoking status Never [facility] Medical Equipment Procedure Code Equipment Code Equipment Origin al Text Equipment Identifier Dates Transcarotid artery revascularization (TCAR) Bare-metal carotid artery stent ()[id number] FDA Start: 07-08-2022 Transcarotid artery revascularization (TCAR) Bare-metal carotid artery stent ()[id number] FDA Start: 07-08-2022 Percutaneous endovascular repair of abdominal aortic aneurysm (AAA) Abdominal aorta endovascular stent-graft ()[id number] FDA Start: 02-04-2022 Percutaneous endovascular repair of abdominal aortic aneurysm (AAA) Abdominal aorta endovascular stent-graft ()[id number] FDA Start: 02-04-2022 Percutaneous endovascular repair of abdominal aortic aneurysm (AAA) Abdominal aorta endovascular stent-graft ()[id number] FDA Start: 02-04-2022 Goals Date Patient Goal Desired Activity /State Functional Status Date Assessment Result Facility 01-13-2023 Functional Status N/A [facility] 10-07-2022 Functional Status N/A [facility] 07-09-2022 Functional status Patient is Pro gressing Toward Baseline [facility] Work Phone: 06-24-2022 Functional Status N/A [facility] 04-15-2022 Functional Status N/A [facility] 02-25-2022 Functional Status N/A [facility] 02-18-2022 Functional Status N/A [facility] 02-11-2022 Functional Status N/A [facility] 02-05-2022 Functional status Patient at Baseline [facility] Work Phone: 10-15-2021 Functional status Patient at Baseline [facility] Work Phone: Mental Status Date Assessment Result Facility 07-09-2022 Cognitive function Cognitive Sta tus Patient is Progressing Toward Baseline [facility] Work Phone: 02-05-2022 Cognitive function Cognitive Sta tus Patient at Baseline [facility] Work Phone: 10-15-2021 Cognitive function Cognitive Sta tus Patient at Baseline [facility] Work Phone: Clinical Notes 04-18-2020 to [...] urethra. Follow these instructions at home: Take dete-sbz-suixipk and prescription medicines only as told by [...] provider. Document Revised: 09/10/2021 Document Reviewed: 09/10/2021 [employer] Patient Education 2022 [employer]. Follow Up Care 10/07/2022 09:26:45 With:Mo LEIJA, AKILAH Smith, URO Address: When: Unknown [facility] 11-10-2022 Evaluation note Encounter Date Diagnosis Assessment [...] in the office with a CT scan. [facility] Other 08-02-2023 Hospital Discharge instructions Patient Education [...] urethra. Follow these instructions at home: Take sqgs-chr-dutoyqz and prescription medicines only as told by [...] provider. Document Revised: 09/10/2021 Document Reviewed: 09/10/2021 [employer] Patient Education 2022 [employer]. Follow Up Care 07/28/2022 10:29:31 With:Mo LEIJA, AKILAH Smith, URO Address: When:Within 3 Day(s) [facility] 05-30-2023 Evaluation note* Encounter Date Diagnosis Assessment [...] a couple of weeks. These have resolved. [facility] Other 05-04-2023 Discharge summary Author Raul Quan [facility] July 09, 2022 12:08pm Note Date/Time July 09, 2022 8:07am [facility] [address] [place] [address] Discharge Summary Signed Patient: Chico Baker MR#: [id number] : 1940 Acct:[id number] Age/Sex: 82 / M Adm Date: 3 Loc: Room: [address] [place] [address]: Raul Quan MD Copies to: DO Tamar Frias APRN Jeffrey L Buehrer, MD~ Providers Date of Discharge: 07/09/22 Discharging Provider: Raul Quan Additional Discharging Provider: Tamar Perea Primary Care Provider: Shailseh Dunham Consults: 07/08/22 07:07 Consult to Dietitian [...] midline, neck is supple, no JVD. Bilateral lens inspector strength is equal. He has a little [...] <Electronically signed by MD Raul Quan> 07/09/22 [address] [facility] Work Phone: 1(944) 811-532205-03-2023 History and physical note Author Raul Quan [facility] July 08, 2022 11:06am Note Date/Time July 08, 2022 11:06a m [facility] [address] [place] [address] Vascular Surgery H&P Signed Patient: Chico Baker MR#: [id number] : 1940 Acct:[id number] Age/Sex: 82 / M Adm Date: 3 Loc: Room: [address] [place] [address] Type: ADM IN Attending Dr: Raul Quan [...] signed by MD Raul Quan> 07/08/22 1106 [facility] Work Phone: 1(656) 260-720304-19-2023 Hospital Discharge instructions Patient Education 06/24/2022 09:42:41 [...] Follow these instructions at home: Medicines Take tops-oan-nvvdieo and prescription medicines only as told by [...] or the blood stops without treatment. Take arot-cjy-flrnogc and prescription medicines only as told by your health care provider. Drink enough fluid to keep your urine pale yellow. This information is not intended to replace advice given to you by your health care provider. Make sure you discuss any questions you have with your health care provider. Document Revised: 10/23/2020 Document Reviewed: 10/23/2020 [employer] Patient Education 2022 [employer]. 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 Walk daily Inspect feet daily for cuts [facility] Other 03-14-2023 Evaluation note* Encounter Date Diagnosis [...] left TCAR procedure once he returns from [place] at the end of June beginning of [...] agree with plan, and denies any questions. [facility] Other 03-08-2023 Evaluation note* Encounter Date Diagnosis Assessment Notes Treatment Notes Treatment Clinical Notes May, Carotid stenosis, bilateral (ICD-10 - I65.23) CTA: < 50% right, 80% left [facility] Other 03-08-2023 Evaluation note* Encounter Date Diagnosis Assessment Notes Treatment Notes Treatment Clinical Notes May, Carotid stenosis, bilateral (ICD-10 - I65.23) CTA: < 50% right, 70% left - 05/2022 [facility] Other 02-08-2023 Hospital Discharge instructions Patient Education [...] prostate. Follow these instructions at home: Take smnw-gja-lghevni and prescription medicines only as told by [...] 02/19/2001 Document Revised: 05/07/2018 Document Reviewed: 11/12/2016 [employer]! Patient Education 2020 [employer]. Follow Up Care 02/11/2022 10:55:52 With:Mo LEIJA, AKILAH Smith, URO Address: When: Unknown [facility] 02-07-2023 Evaluation note* Encounter Date Diagnosis Assessment Notes Treatment Notes Treatment Clinical Notes Apr, Primary hypertension (ICD-10 - I10) [facility] Other 01-03-2023 Evaluation note* Encounter Date Diagnosis [...] to perform simultaneously to minimize contrast exposure. [facility] Other 12-21-2022 Hospital Discharge instructions Patient Education 02/25/2022 12:02:33 Rash, Adult, Wdlv-ix-Hsst Rash, Adult A rash is a change [...] with your condition: Medicine Take or apply byoj-uqg-vctdvyw and prescription medicines only as told by [...] the rash from spreading. Take or apply ckof-pwx-zdjkcry and prescription medicines only as told by [...] 08/10/2008 Document Revised: 06/16/2019 Document Reviewed: 09/26/2018 [employer] Patient Education 2019 [employer] Follow Up Care 02/18/2022 14:33:21 With:Ivelisse Hassan Address:Unknown When: Unknown Comments:Appointment has already been scheduled [facility] 12-14-2022 Hospital Discharge instructions Patient Education 02/18/2022 [...] including vitamins, herbs, eye drops, creams, and gbmj-jzp-ixxumym medicines. Any problems you or family members [...] provider tells you to take them. Taking nvao-xmc-cupljha medicines, vitamins, herbs, and supplements. Eating and [...] 02/22/2006 Document Revised: 06/14/2019 Document Reviewed: 11/23/2018 [employer]! Patient Education 2019 [employer]. Follow Up Care 02/17/2022 16:33:06 With:ARASH BUCHANAN, IVA Ellis, URL Address: [address] [place] [address] [phone] When:02/25/2022 [facility] 12-07-2022 Hospital Discharge instructions Patient Education 02/11/2022 [...] prostate. Follow these instructions at home: Take kdqk-iqy-cnvilhd and prescription medicines only as told by [...] 02/19/2001 Document Revised: 05/07/2018 Document Reviewed: 11/12/2016 [employer]! Patient Education 2020 [employer]. Follow Up Care 01/28/2021 10:15:04 With:Mo LEIJA, AKILAH Smith, URO Address: When:6 weeks [facility] 12-01-2022 Discharge summary Author Raul Quan [facility] February 05, 2022 10:08am Note Date/Time February 05, 2022 7 :52am [facility] [address] [place], [place] [address] Discharge Summary Signed Patient: Chico Baker MR#: [id number] : 1940 Acct:[id number] Age/Sex: 81 / M Adm Date: 2 Loc: 4N Room: 3B3992-[address]: Raul Quan MD Copies to: [...] % (Auto) 69.5, Lymph % (Auto) 14.4, Wallace % (Auto) 14.8, Eos % (Auto) 0.7, Baso % (Auto) 0.6, Nucleat RBC Rel Count 0.1, Neut # (Auto) 7.1, Lymph # (Auto) 1.5, Wallace # (Auto) 1.5 H, Eos # (Auto) 0.1, Baso # (Auto) 0.1 02/04/22 08:25: Corrected WBC 9.3, Uncorrected WBC Count 9.3, RBC 4.10, Hgb 12.4L, Hct 37.5 L, MCV 91.5, MCH 30.2, MCHC 33.0, RDW 13.7, Plt Count 198, MPV 8.5, Neut % (Auto) 70.1, Lymph % (Auto) 16.4, Wallace % (Auto) 12.0, Eos % (Auto) 0.9, Baso % (Auto) 0.6, Nucleat RBC Rel Count 0.0, Neut # (Auto) 6.5, Lymph # (Auto) 1.5, Wallace # (Auto) 1.1 H, Eos # (Auto) [...] <Electronically signed by MD Raul Quan> 02/05/22 [address] [facility] Work Phone: 1([phone]) 940-161511-15-2022 Evaluation note* Encounter Date Diagnosis Assessment Notes [...] we will evaluate him for left TCAR. [facility] Other 10-31-2022 Evaluation note* Encounter Date Diagnosis [...] complete and CT confirms candidacy for TCAR [facility] Other 09-19-2022 Evaluation note* Encounter Date Diagnosis Assessment Notes Treatment Notes Treatment Clinical Notes Nov, AAA (abdominal aortic aneurysm) without rupture (ICD-10 - I71.4) This patient is still recovering from his recent orthopedic procedures. He continues with physical therapy and although he is getting stronger, he remains quite fatigued and weak yet. He has an upcoming appointment with his chili powder mixer for preoperative risk assessment and stratification this next week. We will give him a few more weeks of physical therapy and have him back in a month or so to reschedule his AAA. He did tell me that he had some abdominal pain while in the [facility] and was taken to the [facility] where a CT of the abdomen was obtained. We will get these studies pushed over for review and comparison. He denies any abdominal pain today and tells me his appetite is pretty good. He knows to call us in the meantime with any issues. [facility] Other 07-26-2022 Evaluation note* Encounter Date Diagnosis [...] agrees with this plan, denies any questions. [facility] Other 07-11-2022 Evaluation note* Encounter Date Diagnosis [...] agrees with this plan, and denies questions. [facility] Other 07-11-2022 Evaluation note* Encounter Date Diagnosis [...] agrees with this plan, and denies questions. [facility] Other 05-23-2022 Evaluation note* Encounter Date Diagnosis [...] returns we will get baseline ankle-brachial indices. [facility] Other 10-06-2021 NoteHNO ID: [id number] Author: Power Catherine MD Service: ? Author Type: Physician Type: Progress Notes Filed: 12/11/2020 11:17 AM Note Text: [facility] OUTPATIENT VISIT DATE December 11, 2020 OUTPATIENT VISIT TYPE EST PRIMARY CARE PHYSICIAN: Shailesh Dunham (Jere) [address] [place] [address] REFERRING PHYSICIAN Power Catherine [id number] Count includes the [facility] [address] CHIEF COMPLAINT: Patient presents with: Established Patient [...] Power Catherine, [facility]02-11-2021 NotePatient Outreach (COVAMN) CHICO BAKER Abad ([id number]) 1940 M Date Time Provider Department 04/18/20 KIMBERLEY REHMAN During your visit today, we recorded the following information about you: Allergies As of Date: 04/18/2020 Noted Allergy Reaction SHALINI INHIBITORS 05/09/2015 16 - Unknown GADOLINIUM-CONTAINING CONTRAST ME*05/09/2015 16 - Unknown TETANUS VACCINES AND TOXOID 05/16/2015 16 - Unknown Date Reviewed: 10/18/2017 Reviewed by: Power Catherine - Fully Assessed Order(s):SARS-COVID VACCINE 1ST DOSE APPT [[id number]] Order #: [id number] FUTURE Prescriptions as of 04/18/2020 Sig: ASPIRIN [...] (None) Encounter Status:Closed by EPIC, PRODUSER on 04/22/20[facility] Evaluation + Plan note Future Appointments Appointment Date:04/15/2022 08:45:00 AM Scheduled Provider:Ivelisse Hassan MD Location:[facility] Appointment Type:URO Office Visit [facility] evaluation + Plan note Future Appointments Appointment Date:04/15/2022 08:45:00 AM Scheduled Provider:Ivelisse Hassan MD Location:[facility] Appointment Type:URO Office Visit Diagnostic Tests Pending * [facility]ments Appointment Date:02/25/2022 11:00:00 AM Scheduled Provider:IVA ANTOINE PA-C Location:[facility] Appointment Type:URO Office Visit Appointment Date:04/15/2022 08:45:00 AM Scheduled Provider:Ivelisse Hassan MD Location:[facility] Appointment Type:URO Office Visit [facility] evaluation + Plan note Future Appointments Appointment Date:06/24/2022 09:30:00 AM Scheduled Provider:Ivelisse Hassan MD Location:[facility] Appointment Type:URO Office Visit [facility] evaluation + Plan note Future Appointments Appointment Date:01/13/2023 09:00:00 AM Scheduled Provider:Ivelisse Hassan MD Location:[facility] Appointment Type:URO Office Visit [facility] evaluation note* Diagnosis Onset Date Resolution Status AAA (abdominal aortic aneurysm) [facility] Work Phone: Evaluation noteNo assessment information available [facility] Work Phone: Evalutlpdr noteNo InformationNortGeising[facility] SendMe Other Evalufeyma note* Diagnosis Onset Date Resolution Status Left carotid stenosis acute [facility] Work Phone: History general Narrative - Reported* Type Description Date Medical History hypercholesterolemia Medical History abdominal aortic aneurysm Medical History Carotid stenosis Medical History PAD Surgical History TURP Surgical History knee arthroscopy LEFT Surgical History Vein stripping Hospitalization History See Above [facility] Other Hispnru general Narrative - Reported* Type Description Date Medical History hypercholesterolemia Medical History abdominal aortic aneurysm Medical History Carotid stenosis Medical History PAD Surgical History TURP Surgical History knee arthroscopy LEFT Surgical History Vein stripping Surgical History RT FEMUR FX WITH ARABELLA PLACEMENT Hospitalization History See Above [facility] Other Hispeqz general Narrative - Reported* Type Description Date Medical History hypercholesterolemia Medical History abdominal aortic aneurysm Medical History Carotid stenosis Medical History PAD Medical History [ ] Surgical History TURP Surgical History knee arthroscopy LEFT Surgical History Vein stripping Surgical History RT FEMUR FX WITH ARABELLA PLACEMENT Surgical History EVAR 02/04/2022 Surgical History [ ] Hospitalization History See Above [facility] Other Hisashm general Narrative - Reported* Type Description Date [...] History COLONOSCOPY 2019 Hospitalization History See Above [facility] Other History general Narrative - Reported* Type [...] Left TCAR 07/2022 Hospitalization History See Above [facility] Other Hiszjso general Narrative - Reported* Type Description Date [...] Left TCAR 07/2022 Hospitalization History See Above [facility] Other Hospital course Narrative No data available for this section [facility] [email or web address] Hospital Discharge instructions No data available for this section [facility] Author Raul Buehrer [facility] October 15, 2021 4:31pm Note Date/Time October 15, 2021 4: 31pm [facility] [address] [place] [address] Vascular Surgery Progress Note Signed Patient: Chico Baker MR#: [id number] : 1940 Acct:[id number] Age/Sex: 81 / M Adm Date: 2 Loc: 4 Room: [address] [place] [address] Type: DIS IN Attending Dr: Raul Quan [...] proceed with evaluation here. I will [facility] to performoutpatient cardiac evaluation and then he will be rescheduled when he is cleared. Code(s): I71.4 - Abdominal aortic aneurysm, without rupture Status: Acute Documented By: Raul Quan MD 10/15/21 162 9 Signed By: <Electronically signed by MD Raul Quan> 10/15/21 1631 [facility] Work Phone: Progress note Author Pb Zurita [facility] October 16, 2021 5:41am Note Date/Time October 16, 2021 5: 41am [facility] [address] [place] [address] Anesthesia Progress Note Signed Patient: Chico Baker MR#: [id number] : 1940 Acct:[id number] Age/Sex: 81 / M Adm Date: 2 Loc: 4N Room: 4V4509-0 Type: DIS IN Attending Dr: Raul Quan MD Copies to: ~ Anesthesia Progress Note Narrative Narrative: Patient for EVAR today for 5+ centimeter infrarenal AAA. Past medical history hypertension, moderate aortic stenosis, and coronary artery disease. Review of medical records and discussion with indicates patient had stress test 2008 positive for infarct and ischemia at which time he was referred to [facility] and had cardiac cath. Medical management was apparently chosen. No interval events,testing, or intervention. Patient has been asymptomatic but sedentary and poor historian. Advised patient and family to see chili powder mixer for consideration of preop stress testing. Discussed with surgeon Documented By: Pb Zurita MD 10/16/21 0535 Signed By: <Electronically signed by Pb Zurita MD> 10/16/21 0541 [facility] Work Phone: Progress note No data available for this section [facility] Reason for Referral No Reason for Referral [...] section and content) DATE CREATED AUTHOR 04/02/2021 [facility] DATE CREATED AUTHOR AUTHOR'S ORGANIZ ATION 10/28/2021 [facility] DATE CREATED AUTHOR AUTHOR'S ORGANIZ ATION 04/14/2022 [facility] DATE CREATED AUTHOR AUTHOR'S ORGANIZ ATION 11/11/2022 [facility] DATE CREATED AUTHOR AUTHOR'S ORGANIZ ATION 03/05/2023 [facility] REASON FOR VISIT (unrecogniz ed section and content) REF BY DR DUNHAM FOR AAA, PAD AND CAROTID STENOSIS, Needs a new vascular surgeon7 [facility] FOLLOW UP; SHYANNE'S, ABDOMINAL, CAROTID [facility] FOLLOW UP; SHYANNE'S, ABDOMINAL, CAROTID 08/27/21FOLLOW UP AFTER [facility] 09/18/21-AAAAAA see pt post femur fx rt and clavicle rt6 [facility] FOLLOW UP, Follow-up abdominal aortic aneurysmVASC 3 MONTH FOLLOW UP; CAROTID DUPLEX 11A, Abdominal aortic aneurysm3 week f/u EVAR, Follow-up after percutaneous aneurysm repairNo InformationNo InformationNo InformationNo InformationNo Information2 MONTH FOLLOW UP; [facility]/ Follow UpNo InformationNo InformationNo Information3 week f/u [...] BE BASED ON THE PRIMARY CLINICAL RECORDS. [employer] provides no warranty or guarantee of the accuracy or completeness of information in this document.
[2023-03-25] VITALS (12 sets, daily range): BP systolic 121–153; BP diastolic 66–72; PULSE 73–110; RESP 18–20; TEMP 36.9; O2SAT 93
[2023-03-25 05:17] LABS: Basophils Percent Auto 0.4 % (0.2-2.0); Eosinophils Absolute Auto 0.1 10^3/uL (0.0-0.7); Eosinophils Percent Auto 1.2 % (0.9-7.0); Hematocrit 36.8 % (42.0-54.0); Immature Granulocytes Abs Auto 0.03 10^3/uL (0.00-0.03); Immature Granulocytes Pct Auto 0.4 % (0.0-0.5); Lymphocytes Absolute Auto 1.4 10^3/uL (1.2-3.8); Lymphocytes Percent Auto 16.7 % (20.5-60.0); Mean Corpuscular HGB Conc 32.6 g/dL (29.9-35.2); Mean Corpuscular Hemoglobin 30.1 pg (25.9-34.0); Mean Corpuscular Volume 92.2 fL (80.0-94.0); Monocytes Absolute Auto 0.9 10^3/uL (0.3-0.8); Monocytes Percent Auto 10.5 % (1.7-12.0); Neutrophils Absolute Auto 5.9 10^3/uL (1.4-6.5); Neutrophils Percent Auto 70.8 % (43.0-75.0); Platelet Count 166 10^3/uL (150-450); Red Blood Count 3.99 10^6/uL (4.70-6.10); Red Cell Distribution Width 12.6 % (11.0-15.0); White Blood Count 8.3 10^3/uL (4.0-11.0)
[2023-03-25 05:35] LABS: Anion Gap 12.4; BUN Creatinine Ratio 13.3; Calcium 8.5 mg/dL (8.5-10.1); Chloride 103 mmol/L (98-107); Estimated GFR (African America >60 (>=60); Estimated GFR (Non-African Ame >60 (>=60); Glucose 92 mg/dL (74-106); Potassium 4.4 mmol/L (3.5-5.1); Sodium 138 mmol/L (136-145)
--- NOTE | 2023-03-25 08:07 | CM.NOTE ---
Medicare Outpatient Observation Notice discussed with pt, pt verbalizes understanding and signs paper. Original given to pt and copy placed on pt's chart.
[2023-03-25] MEDS: LOSARTAN POTASSIUM 25 MG TABLET 100 MG PO (09:54)
[2023-03-25] MEDS: CARVEDILOL 12.5 MG TABLET 25 MG PO (09:55)
[2023-03-25] MEDS: ISOSORBIDE DINITRATE 30 MG TABLET PO (09:56)
[2023-03-25] MEDS: ATORVASTATIN CALCIUM 10 MG TABLET 40 MG PO (09:58)
[2023-03-25] MEDS: CLOPIDOGREL BISULFATE 75 MG TABLET PO (09:59)
--- NOTE | 2023-03-25 10:48 | P.HP_ITS ---
<Statement entered by Shaikh Agustina MD - 03/25/23 14:37> This documentation has been reviewed and approved.Seen and examined. Patient admitted for HTN urgenc after he had lithotripsy for kidney stones Exam Laying in bed, comfortable CTA b/l, normal RR Normal HR, no murmur noted Assessment and Plan HTN urgency Carotid artery stenosis AAA s/p repair Patient admitted for HTN urgency. BP improved with increased dose of Coreg, Losartan. Asymptomatic. Stable for d/c as outpatient. F/u with PCP to ensure meds do not need to be adjusted H&P: HPI History of Present Illness Chief complaint: Blood Pressure High, Hypertension, Dizziness Narrative: 03/25/23 0920 This is an 82 yo male pt w/ a PMHx as outlined below including HTN, Carotid stenosis s/p endarterectomy, aortic aneurysm s/p stenting, R femur fracture from fall s/p gamma nailing; who presented to the ED last night c/o of uncontrolled hypertension w/ associated mild dizziness. He underwent a lithotripsy procedure earlier yesterday and was noted to have uncontrolled HTN in PACU. He was treated with additional antihypertensives in PACU and his BP improved. He refused to be admitted overnight for observation and was discharged home with instructions to return to the ED if his BP gentry again or he didn't feel well. Work up in the ED hypertensive urgency (204/81 on arrival), mild leukocytosis (likely reactive to earlier lithotripsy procedure), but was otherwise benign. A CXR showed no acute disease and an EKG was SR with nonspecific T wave changes but no acute ischemic changes. He was treated with gentle IVFs, IVP labetalol and zofran in the ED, but only saw moderate improvement in his BP. He was admitted last night to the hospitalist service in observation. At the time of my exam the pt reports feeling better and completely denies CP, SOB, dizziness, N/V or any other acute complaint - including no abdominal pain after his procedure. His BP is better controlled today, but still not yet to goal. We will give increased doses of both his home losartan and Coreg this morning and monitor his response. Discharge likley if his BP is adequately controlled with these increases. DISCHARGE: Pt tolerated increased doses of losartan and coreg well. His BP on recheck around noon was 121/66. He denies any complaints of dizziness or any adverse sensation. He is being discharged home in stable condition with prescriptions for Losartan and Coreg at increased dosing. He should follow up with his PCP in 3-5 days and discuss BP management at that visit. He should change positions slowly to avoid postural hypotension. Review of Systems ROS Status of ROS 10 or more systems reviewed and unremark able except as noted in history and below [facility] Medical History (Updated 03/25/23 @ 13:50 by Rajni Rios NP) Presence of internal carotid stent (~07/2022) ?Z95.828 - Presence of other vascular implants and grafts (ICD-10) Aortic valve stenosis ?I35.0 - Nonrheumatic aortic (valve) stenosis (ICD-10) Heart murmur ?R01.1 - Cardiac murmur, unspecified (ICD-10) Carotid stenosis ?I65.29 - Occlusion and stenosis of unspecified carotid artery (ICD-10) Anemia ?D64.9 - Anemia, unspecified (ICD-10) Femur fracture (~10/2021) ?S72.90XA - Unspecified fracture of unspecified femur, initial encounter for closed fracture (ICD-10) AAA (abdominal aortic aneurysm) ?I71.40 - Abdominal aortic aneurysm, without rupture, unspecified (ICD-10) Heartburn ?R12 - Heartburn (ICD-10) Delayed recovery from anesthesia Urethral stricture ?N35.919 - Unspecified urethral stricture, male, unspecified site (ICD-10) Post-void dribbling ?N39.43 - Post-void dribbling (ICD-10) Penile rash ?R21 - Rash and other nonspecific skin eruption (ICD-10) Paget's disease Nocturia ?R35.1 - Nocturia (ICD-10) Incontinence ?R32 - Unspecified urinary incontinence (ICD-10) Microhematuria ?R31.29 - Other microscopic hematuria (ICD-10) Impotence ?N52.9 - Male erectile dysfunction, unspecified (ICD-10) Hypertension ?I10 - Essential (primary) hypertension (ICD-10) Hyperlipidemia ?E78.5 - Hyperlipidemia, unspecified (ICD-10) Kidney stones ?N20.0 - Calculus of kidney (ICD-10) Gross hematuria ?R31.0 - Gross hematuria (ICD-10) Erectile dysfunction ?N52.9 - Male erectile dysfunction, unspecified (ICD-10) Dysuria ?R30.0 - Dysuria (ICD-10) BPH (benign prostatic hyperplasia) ?N40.0 - Benign prostatic hyperplasia without lower urinary tract symptoms (ICD-10) Asymptomatic microscopic hematuria ?R31.21 - Asymptomatic microscopic hematuria (ICD-10) ASHD (arteriosclerotic heart disease) ?I25.10 - Atherosclerotic heart disease of [place] coronary artery without angina pectoris (ICD-10) Surgical History (Updated 03/25/23 @ 13:51 by Rajni Rios NP) H/O lithotripsy ?Z98.890 - Other specified postprocedural states (ICD-10) History of open reduction and internal fixation (ORIF) procedure (~10/2021) ?Z98.890 - Other specified postprocedural states (ICD-10) Hx of esophagogastroduodenoscopy ?Z98.890 - Other specified postprocedural states (ICD-10) H/O cardiac catheterization ?Z98.890 - Other specified postprocedural states (ICD-10) H/O arthroscopy of knee ?Z98.890 - Other specified postprocedural states (ICD-10) H/O colonoscopy ?Z98.890 - Other specified postprocedural states (ICD-10) H/O cystoscopy ?Z98.890 - Other specified postprocedural states (ICD-10) H/O transurethral resection of prostate ?Z98.890 - Other specified postprocedural states (ICD-10) ?Z90.79 - Acquired absence of other genital organ(s) (ICD-10) S/P AAA repair (~02/2022) ?Z98.890 - Other specified postprocedural states (ICD-10) ?Z86.79 - Personal history of other diseases of the circulatory system (ICD- 10) S/P cystourethroscopy with dilation of urethral stricture ?Z98.890 - Other specified postprocedural states (ICD-10) Social History (Updated 03/24/23 @ 21:52 by Dali Ballard) Within the past year, how often did you have a drink containing alcohol: 2-3 times a week Smoking status: Former smoker Non-prescribed substance use: denies use Previous occupational history: retired Highest level of school completed/degree received: high school graduate Are you now , , , , never or living with a partner: In a typical week, how many times do you talk on the telephone with family, friends, or neighbors: twice per week How often do you get together with friends or relatives: twice per week Little interest or pleasure in doing things: not at all Feeling down, depressed, or hopeless: not at all Feel stressed/tense/nervous/anxious/difficulty sleeping: not at all Do you think of yourself as: straight/heterosexual Gender Identity: male Meds Home Medications and Allergies Home Medications Medication Instructions Recorded Confirmed Type aspirin 81 mg tablet,delayed 81 mg PO .qod 03/12/23 03/24/23 History release isosorbide dinitrate 30 mg tablet 30 mg PO DAILY 03/12/23 03/24/23 History pravastatin 40 mg tablet 40 mg PO DAILY 03/12/23 03/24/23 History cholecalciferol (vitamin D3) 25 1,000 unit PO BID 03/24/23 03/24/23 History mcg (1,000 unit) capsule clopidogrel 75 mg tablet 75 mg PO DAILY 03/24/23 03/24/23 History oxybutynin chloride 5 mg tablet 5 mg PO Q8H PRN bladder spasms, 03/24/23 03/24/23 Rx stent pain #60 tabs tamsulosin 0.4 mg capsule 0.4 mg PO QPM stone passage, stent 03/24/23 03/24/23 Rx pain #30 caps carvedilol 25 mg tablet (Coreg) 25 mg PO BID #60 tabs 03/25/23 Rx losartan 100 mg tablet 100 mg PO DAILY #30 tabs 03/25/23 Rx Allergies Allergy/AdvReac Type Severity Reaction Status Date / Time SHALINI Inhibitors Allergy Unknown Verified 03/17/23 14:49 Iodinated Contrast Media Allergy Unknown Hives Verified 03/17/23 14:49 iodine Allergy Unknown Hives Verified 03/17/23 14:49 tetanus toxoid, adsorbed Allergy Unknown Verified 03/17/23 14:49 Exam Constitutional Vital Signs, click to edit/add: Last Vital Signs Temp 98.5 F 03/25/23 05:32 Pulse 79 03/25/23 10:00 Resp 18 03/25/23 08:00 BP 132/70 03/25/23 10:13 Pulse Ox 93 L 03/25/23 05:32 O2 Del Method Room Air 03/25/23 05:32 Common normals: no apparent distress, oriented x3, alert and well nourished General appearance: cooperative Orientation/consciousness: Yes awake HENMT Common normals: normocephalic, head/scalp atraumatic, hearing grossly normal bilaterally, external nose normal and moist oral mucous membranes Eye Common normals: PERRL, EOMs intact bilaterally, conjunctivae normal and no scleral icterus Alignment: alignment normal Eyelid: eyelids normal Neck & C-Spine Common normals: full ROM, supple and no JVD Chest Common normals: inspection of chest normal Chest: symmetrical chest wall rise Respiratory Common normals: normal respiratory effort, no retractions, no use of accessory muscles and clear to auscultation bilaterally Effort & inspection: able to speak in complete sentences Cardio Common normals: no JVD, regular rate, regular rhythm, S1 normal heart sound, S2 normal heart sound, no gallops, no clicks, no rub and peripheral pulses 2+ thr oughout Heart sounds: murmur (HSM 3/6, high pitched) GI Common normals: Normal to inspection, nondistended, normoactive bowel sounds present, soft to palpation, non-tender, no hepatosplenomegaly, no masses and no bruits Bladder/kidney exam: bladder normal to palpation Back & Pelvis Common normals: thoracic and lumbar spine normal to inspection Extremity Common normals: normal capillary refill and no pedal edema General: normal exam except as noted; no clubbing and no cyanosis Neuro [place] Coma Scale: GCS not evaluated Common normals: CN's II-XII intact bilaterally, moves all extremities, no focal motor deficits and no sensory deficits noted Speech: speech normal Psych Common normals: mental status grossly normal, thought process normal, affect normal and activity/motor behavior normal Results Labs Labs: Short CBC 03/24/23 03/25/23 Range/Units 19:09 04:08 WBC 12.7 H 8.3 (4.0-11.0) 10^3/uL Hgb 12.8 L 12.0 L (14.0-18.0) g/dL Hct 38.7 L 36.8 L (42.0-54.0) % Plt Count 174 166 (150-450) 10^3/uL BMP 03/24/23 03/25/23 19:09 04:08 Sodium 134 L 138 Potassium 4.2 4.4 Chloride 99 103 Carbon Dioxide 28.3 27.0 BUN 15.0 13.0 Creatinine 0.99 0.98 Glucose 127 H 92 Calcium 8.7 8.5 Liver Function 03/24/23 Range/Units 19:09 Total Bilirubin 0.5 (0.2-1.0) mg/dL AST 14 L (15-37) U/L ALT 16 (16-63) U/L Alkaline Phosphatase 145 H (46-116) U/L Albumin 3.1 L (3.4-5.0) g/dL Pulse Oximetry Attestation: I have reviewed the pertinent pulse oximetry results. ECG Attestation: ?I have reviewed the pertinent ECG results. Interpretation: Sinus rhythm Nonspecific T wave abnormality, cannot exclude inferolateral ischemia Borderline ECG Compared to ECG from 03/17/2023 at 1504 p.m. No significant changes Electronically signed on 03/25/2023 at 6:52 AM by Shailesh dunham Imaging Chest x-ray: Attestation: I have reviewed the pertinent imaging results. Radiologist's impression: IMPRESSION: No acute infiltrate or evidence of cardiac decompensation. Some chronic changes are noted. The overall appearance hasn't chest has not changed significantly. Assessment and Plan Assessment and Plan (1) Hypertensive urgency: Assessment and Plan: ACUTE * Adm observation * Associated sx of N/V dizziness on presentation - resolved * Labetalol IVP given in ED * Continue home Isordil 30 mg daily * Home losartan increased to 100 mg daily and home Coreg increased to 25 mg BID * Monitor pt response * D/C home if BP stable at lunch time Discharge: * Discharged home in stable condition with scrips for increased Losartan and Coreg. Follow up with PCP in 3-5 days. (2) Carotid stenosis: Assessment and Plan: CHRONIC * S/P Endarterectomy in 2022 * Continue home Plavix & statin * Daily aspirin on hold after urologic procedure. Resume when OK with urology (3) H/O lithotripsy: Assessment and Plan: ACUTE ON CHRONIC * Procedure on 03/24/23 * Follow discharge plan per urology * Follow up at urology office as previously arranged
--- NOTE | 2023-03-25 10:53 | CM.NOTE ---
Rounds made with Dr. Berrios, pt will discharge to home today. Dr. Berrios discussed increase in Coreg and Losartan dose for disccharge. Pt will f/u with primary care doctor in one week.
--- NOTE | 2023-03-29 10:31 | CM.DCFOLLOWU ---
Person spoke with: Reynaldo How are you feeling? Ok How is your pain? No pain Did you understand your discharge instructions? Yes Do you have any questions about your discharge instructions? No Were you given any prescriptions at discharge? Yes Were you able to get your prescriptions filled? Yes Do you understand how to take your medications as ordered? Yes Do you have any questions about your follow up appointment and do you plan to keep your follow up appointment? I'm at my follow up appointment right now Is there anything else that you would like to discuss? No Questions/Comments/Concerns/Other:
== END 2023-03-25 12:48 | disposition home or self-care (01) ==
LOC: ER 20:26 → MS 21:53
PROVIDERS: Nurse Practitioner Acute Care; Physician Assistant; Admitting Provider Internal Medicine; Emergency Provider Internal Medicine; PCP Internal Medicine; Visit Provider Internal Medicine
DX: N20.0 Calculus of kidney (principal); I16.0 Hypertensive urgency; I25.10 Atherosclerotic heart disease of native coronary artery without angina pectoris; N32.89 Other specified disorders of bladder; N35.912 Unspecified bulbous urethral stricture, male; N52.9 Male erectile dysfunction, unspecified; E78.5 Hyperlipidemia, unspecified; N40.1 Benign prostatic hyperplasia with lower urinary tract symptoms; R35.1 Nocturia; N39.498 Other specified urinary incontinence; R31.21 Asymptomatic microscopic hematuria; Z87.891 Personal history of nicotine dependence; Z87.442 Personal history of urinary calculi; Z79.82 Long term (current) use of aspirin; Z79.01 Long term (current) use of anticoagulants; Z79.899 Other long term (current) drug therapy; Z79.02 Long term (current) use of antithrombotics/antiplatelets; Z95.828 Presence of other vascular implants and grafts; Z98.890 Other specified postprocedural states; Z90.79 Acquired absence of other genital organ(s)
CPT/HCPCS: 50590; 52332; 36415; 71045; 74018; 80048; 80053; 83605; 84443; 84484; 85025; 85610; 93005; 96361; 96374; 96375; 99285; C1874; G0378; J0131; J0360; J0690; J1290; J2405; J2704; J3010

== ENCOUNTER 2023-04-04 18:44 | Emergency (ER) | payer MEDICARE, OTHER, SELFPAY ==
[2023-04-04 18:47] VITALS: BP 204/115; PULSE 67; RESP 16; TEMP 36.8; O2SAT 98; BMI 21.7
--- OUTSIDE RECORDS SUMMARY | 2023-04-04 18:57 | XMS_ITS | CCD ---
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 Name Role Phone Orlando Dotson Unavailable Raul Quan Unavailable Tamar Perea Unavailable Shailesh Dunham Unavailable DO Shailesh Dunham Primary Care Provider MD Raul Quan Attending Provider [phone] KB Perea Attending Provider MD Raul Quan Admit Provider DO Shailesh Dunham Primary Care Provider KB Perea Attending Provider MD Raul Quan Admit Provider [phone] MD Raul Quan Attending Provider SHAILESH DUNHAM Primary Care Physician [phone] [place] .IVELISSE Admitting Unavailable LUCaleb .IVELISSE Attending [...] Care Provider MD Raul Quan Attending Provider [phone] DO Shailesh Dunham Primary Care Provider [phone] MD Raul Quan Attending Provider MD Raul Quan Admit Provider [phone] DO Shailesh Dunham Primary Care Provider MD Raul Quan Attending Provider Shailesh Dunham Primary [facility] Unavailable Tamar Perea Admitting Unavailable Tamar Perea Attending Unavailable Shailesh Dunham Primary Care Unavailable Raul Quan Admitting Unavailable Raul Quan Attending Unavailable Shailesh Dunham Primary Care Unavailable Raul Quan Attending Unavailable Raul Quan Admitting Unavailable Shailesh Dunham Primary Care Unavailable Raul Quan Attending Unavailable Raul Quan Admitting Unavailable Enrico Shailesh Primary Care Unavailable Raul Quan Admitting Unavailable Raul Quan Attending Unavailable Enrico Perkins Primary Care Unavailable Raul Quan Attending Unavailable [...] Converting Enzyme (Shalini) Inhibitors Drug allergy Unknown [employer] [facility] Ping Communication Other (6 sources) Tetanus vaccine; Translations: [tetanus toxoid] Drug allergy Unknown [facility] Repository (19 sources) Angiotensin Converting Enzyme (Shalini) Inhibitors; Translations: [Angiotensin-conve rting enzyme inhibitor agent (substance)] Allergy to substance 02-24-20 19 Hives, [facility] (8 sources) Contrast media Allergy to substance 10-07-[address] [facility] (8 sources) Tetanus immune globulin Drug Allergy 02-24-20 19 Unknown Reaction [facility] (17 sources) Angiotensin-conver ting enzyme inhibitor agent Drug allergy Unknown [facility] Ping Communication Other (2 sources) Tetanus toxoid specific immunoglobulin E Drug allergy Unknown [facility] Ping Communication Other (10 sources) Contrast media; Translations: [Contrast Dye] Allergy to substance unknown [facility] (10 sources) Iodine; Translations: [iodine] Drug Allergy Unknown (qualifier value) [facility] (9 sources) tetanus toxoid vaccine, inactivated; Translations: [tetanus toxoid] Drug Allergy Unknown (qualifier value) [facility] (1 source) Iodine Drug Allergy [facility] Rep[facility] (1 source) Iodine (And Iodine Containting Drugs) Drug allergy (disorder) [facility] (1 source) Tetanus AND Diphtheria Tox,Adult Drug allergy (disorder) [facility] (15 sources) Tetanus vaccine Drug allergy Unknown [facility] Ping Communication Other (3 sources) Iodinated Contrast Media Allergy to substance 07-02-[address] [facility] Medications Current Medications Medication Drug Class(es) Dates [...] 2022 9:43am take 1 tablet by freddy th once daily Aspirin 81 81 MG 1 tablet Orally Once a day Active calcium citrate 1040 mg oral tablet (12 sources) Start: 07-01-2022 take 600 mg by mouth twice daily Calcium Citrate Active 600 MG PO Twice daily July 01, 2022 12:00am Start: 02-11-2022 take 2 tablets by mo [facility] three times daily calcium (as calcium [...] Refills(s) 0 Start Date: 03/28/19 Status: Ordered take 1 tablet by freddy every twelve hours Carvedilol 25 MG 1 tablet with food Orally Twice a day Active Carvedilol Activ e cholecalciferol 0.025 mg oral capsule (12 sources) Vitamin D Start: 07-01-2022 take 1 [...] 06, 2021 12:00am July 01, 2022 9:45am take 1 tablet by freddy th every twenty-four hours Vitamin D3 25 MCG (1000 UT) 1 tablet Orally Once a day Active clopidogrel 75 mg oral tablet (11 sources) P2Y12 Platelet Inhibitor Start: 09-16-2021 take [...] PO Daily February 23, 2019 1:00am Isosorbide [place] itrate Active isosorbide dinitrate 30 mg oral [...] Daily, # 30 tab(s), Refills(s) 6, Pharmacy: [facility]/pharmacy #[id number], 169, cm, 10/07/22 8:54:00 EDT, Height/Length Dosing, 61.5, kg, 10/07/22 8:54:00 EDT, Weight Dosing Start Date: 10/07/22 Status: Ordered oxybutynin chloride 5 mg oral tablet (1 source) Cholinergic Muscarinic Antagonist take 1 tablet by mouth every eight hours as needed oxyBUTYnin Chloride 5 MG 1 tablet Orally every 8 hours as needed Active pravastatin sodium 40 mg oral tablet (20 [...] for 30 day(s), 60 tab(s), Refill(s) 0, [facility]/pharmacy #[id number], 169, cm, 02/11/22 8:44:00 EST, Height/Length Dosing, 71, kg, 02/11/22 8:44:00 EST, Weight Dosing Start Date: 02/11/22 Stop Date: 03/13/22 Status: Ordered tamsulosin hydrochloride 0.4 mg oral capsule (1 source) alpha-Adrenergic Helder take 1 capsule by mouth every twenty-four hours Tamsulosin HCl 0.4 MG 1 capsule Orally Once a day Active Vitamin D3 (16 sources) Vitamin D3 Not-Taking Vitamin D3 Activ e Completed/Discontinued Medications Medication Drug Class(es) Dates Sig (Normalized) Sig (Original) ##### (9 sources) Start: 02-11-2022 take 1 capsule by mouth at mealtime ##### 60 EA, TAKE 1 CAPSULE BY MOUTH IN THE MORNING AND 1 IN THE EVENING WITH MEALS Start Date: 02/11/22 Status: Ordered {1 (ascorbic acid 7540 MG / polyethylene glycol 3350 30467 MG / potassium chloride 1200 MG / sodium ascorbate 49650 MG / sodium chloride 3200 MG Powder for Oral Solution) / 1 (polyethylene glycol 3350 316208 MG / potassium chloride 1000 MG / [...] Refills(s) 0 Start Date: 02/11/22 Status: Ordered take 1 tablet by freddy th every twenty-four hours Losartan Potassium 100 MG 1 tablet Orally Once a day Active Losartan Potassi um Active Problems Active Problems [...] Coronary arteriosclerosis; Translations: [Atherosclerotic heart disease of [place] coronary artery without angina pectoris] Onset: 11-14-2021 03-28-2019 Chronic Deficiency and other anemia (12 sources) Anemia; Translations: [Anemia, unspecified] Episodic Diabetes mellitus without complication (13 sources) Impaired fasting glycemia; Translations: [Impaired fasting glucose] Episodic Disorders of lipid metabolism (20 sources) Hyperlipidemia; Translations: [Pure hypercholesterolemi a, unspecified] Onset: 10-28-2021 03-28-2019 Chronic E Codes: Adverse effects of medical drugs (13 sources) Adverse effect of anticoagulants, initial encounter; [...] prostate, unspecified] Onset: 02-11-2022 Episodic Nutritional deficiencies (12 sources) Vitamin D deficiency; Translations: [Vitamin D deficiency, unspecified] Chronic Occlusion or stenosis of precerebral arteries (20 sources) Carotid artery stenosis; Translations: [Occlusion and stenosis of unspecified carotid artery] Onset: 07-28-2021 Resolved: 09-15-2021 Chronic Other bone disease and musculoskeletal deformities (9 sources) Osteitis deformans 03-28-2019 Chronic Other bone disease and musculoskeletal deformities (12 sources) 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; 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] Chronic Other diseases of bladder and urethra (4 sources) Male urethral stricture; Translations: [Unspecified urethral stricture, male, unspecified site] Onset: 10-06-2022 Episodic Other gastrointestinal disorders (12 sources) Diarrhea; Translations: [Diarrhea, unspecified] Episodic Other lower respiratory disease (12 sources) Dyspnea on exertion; Translations: [Other forms of dyspnea] Episodic Other male genital disorders (13 sources) Male erectile dysfunction, unspecified; Translations: [Erectile dysfunction] Onset: 02-11-2022 Chronic Other nutritional; endocrine; and metabolic disorders (12 sources) Abnormal weight loss; Translations: [Abnormal weight [...] of genitalia 02-18-2022 Episodic Other skin disorders (12 sources) Vesicular eczema of hands and/or feet; [...] 2 Episodic Other aftercare (1 source) 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; Translations: [OTH RETIREMENT CURRENT DRUG THERAPY] Onset: 2 Episodic Other aftercare (1 source) penitentiary (current) use of anticoagulants; Translations: [BOTTLE CLEANER CURRNT USE ANTICOAGULANTS] Onset: 2 Episodic Other aftercare (1 source) penitentiary (current) use of aspirin; Translations: [BOTTLE CLEANER CURRENT USE OF ASPIRIN] Onset: 2 Episodic [...] [CONTACT W/AND (SUSP) EXPOS COVID-19] Onset: 2 Unclassified (1 source) Infrarenal abdominal aortic aneurysm (AAA) without rupture I71.43 Results Test Name Value Interpretation Reference Range Facility Reminderson 03-03-2023 Reminders - From: Faviola Clemens To: GERDA - Recalls Mo; Sent: 01/13/2023 10:01:25 EST Show up: 02/12/2023 10:01:00 EST Subject: LINDSEY and KUB Due Date/Time: 02/12/2023 10:01:00 EST Pt to have LINDSEY and KUB done in March at [facility]. Orders placed. Possible ESWL pending size of stones. No follow up at this time. Pt to be called with results. Called pt and reminded him to complete LINDSEY/KUB @ [facility] in the next month. Orders were [...] 02/22/2023 16:05:00 EST From: Belkis Johnson MA (EU - Recalls Lucaleb) To: Ivelisse Hassan MD; Sent: 02/25/2023 13:44:44 [...] given hard stone and large stone burden. RO Haddad Patient is scheduled for 03/24/22 @ [facility] Comment on above: Result Comment: Miss ing Attachment - attachment exceeds size limitation (02/19/2023) RAD - Ultrasound Report Can be viewed in source system Missing Attachment - attachment exceeds size limitation (02/19/2023) RAD - MISC Can be viewed in source system RAD - MISCon 02-22-2023 RAD - MISC [id number]#1.00TIFF [facility] RAD - Ultrasound Reporton RAD - Ultrasound Report [id number]#1.00TIFF [facility] Screenson 01-14-2023 Screens [id number]#1.00TIFF [facility] Screens [id number]#1.00TIFF [facility] Patient Educationon 01-14-20 Patient Education Urology [...] Follow these instructions at home: ? Take xcyn-xjw-wbvysln and prescription medicines only as told by [...] the medicine (more content not included)... Normal [facility] Urology Office/Clinic Noteon 01-13-2023 Urology Office/Clinic [...] with voice recognition artificial intelligence software, specifically [employer], [employer] and or [employer]. Substitutions may have occurred due to the inherent limitations of voice recognition and artificial intelligence software. 1. BPH with obstruction/lower urinary tract symptoms (N40.1: Benign prostatic hyperplasia with lower urinary tract symptoms) hx TURP by [facility] 2019, prostate small on 05/11/22 CT [...] stones no (more content not included)... Normal [facility] Comment on above: Result Comment: Elec tronically Signed By: Ivelisse Hassan MD\.br\Date and Time Signed: 01/13/23 16:25 EST\.br\Electronically Co-Signed By: Faviola Clemens.br\Date and Time Co-Signed: 01/13/23 09:59 EST US carotid doppler BIon 09-0 US carotid doppler BI [facility] [place] [address] [place] [address] Ultrasound Report Signed Patient: Chico Baker MR#: [id number] : 1940 Acct:[id number] Age/Sex: 82 / M ADM Date: 11/10/22 Loc: [facility] Room: Type: [facility] Attending Dr: Raul Quan MD Ordering Provider: [...] Raul Quan M.D.11/10/2022 10:30 AM Dictation Location: [place] [address] Tech: Harika Vazquezninoska Transcribed By: ALEX 11/10/22 1030 Dictated By: Raul Quan MD 11/10/22 1029 Signed By: 11/10/22 1030 [facility] Screenson 10-08-2022 Screens [id number]#[id number]:127 Normal [facility] Screens [id number]#1.00CD:127 Normal [facility] Ambulatory Visit Summaryon 0 10-07-2022 Ambulatory Visit Summary CHICO BAKER :1940 Visit Date:10/07/2022 Ambulatory Visit Instructions Your Diagnosis BPH with obstruction/lower urinary tract symptoms History of kidney stones Asymptomatic microscopic hematuria 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 Tests Performed Urnls Dip Stick Auto w/o Microscopy POC 46268 Your Care Team Attending Physician - Mo LEIJA, Ivelisse Schreiber Primary Care Physician - SHAILESH DUNHAM DO [...] Ivelisse Hassan MD Where: [facility] Patient Educationon 10-08-19 Patient Education [...] Follow these instructions at home: ? Take zpvz-jya-tnvapyj and prescription medicines only as told by [...] the medicine (more content not included)... Normal [facility] Urology Office/Clinic Noteon 10-07-2022 Urology Office/Clinic [...] lower urinary tract symptoms) hx TURP by [facility] 2019, prostate small on 05/11/22 CT [...] neg, s (more content not included)... Normal [facility] Comment on above: Result Comment: Elec tronically Signed By: Ivelisse Hassan MD.br\Date and Time Signed: 10/07/22 10:28 EDT\.br\Electronically Co-Signed By: Eleonora Belcher.br\Date and Time Co-Signed: 10/07/22 09:25 EDT Consent for Procedure/Surger yon 07-29-2022 Consent for Procedure/Surgery [id number]:127 Normal [facility] Patient Educationon 07-29-19 Patient Education Urology [...] these instructions at home: Medicines ? Take ossv-vkx-xxnuopd and prescription medicines only as told by [...] products include cig (more content not included)... [facility] Urology Office/Clinic Noteon 07-28-2022 Urology Office/Clinic [...] urine The Urethra was dilated to: 16-24 Uzbek with connor sounds without difficulty Soft 14 [...] (erectile d (more content not included)... Normal [facility] Comment on above: Result Comment: Elec tronically Signed By: Ivelisse Hassan MD\.br\Date and Time Signed: 07/28/22 10:49 EDT\.br\Electronically Co-Signed By: Clarissa Joaquin MA\.br\Date and Time Co-Signed: 07/28/22 10:28 EDT Activated Clotting Timeon Activated Clotting Time POC 335 s High 90-139 [facility] Comment on above: Result Comment: Refe rence Range: 90-139 (Non-heparinized) PERFORMED BY: [place] [address] PATHOLOGIST BRANCH MAKER ZENA CASTELLON M.D. Performed By: #### C BC, BMP #### [facility] [address] [place] [address] [facility] Activated Clotting Time POC 143 s High 90-139 [facility] Comment on above: Result Comment: Refe rence Range: 90-139 (Non-heparinized) PERFORMED BY: [place] [address] PATHOLOGIST BRANCH MAKER ZENA CASTELLON M.D. Performed By: #### C BC, BMP #### [facility] [address] [place], [place] [id number] [facility] Blood activated clotting sue e by coagulation assayOrdered By: Raul Quan on 07-08-2022 ACT Coag (Bld) 335 s 90-139 [facility] Comment on above: Reference Range: 90- 139 (Non-heparinized) Laboratory - CoagulationOrde red By: Raul Quan on 07-08-2022 PT Coag (PPP) [Time] 11.7 s 9.0-12.9 [facility] Platelet poor plasma interna tional normalized ratio (INR) by coagulation assay (relatOrdered By: Raul Quan on 07-08-2022 INR Coag (PPP) [Relative time] 1.0 {INR} [facility] Comment on above: INR Therapeutic Rang [...] Coag (PPP) [Relative time] 1.0 {INR} Normal [facility] Comment on above: Result Comment: INR [...] heart valves: 3 - 4.5 PERFORMED BY: [place] [address] PATHOLOGIST BRANCH MAKER ZENA CASTELLON M.D. Performed By: #### C SEAN, BMP #### [facility] [address] [place] [address] PT Coag (PPP) [Time] 11.7 s Normal 9.0-12.9 [facility] Comment on above: Performed By: #### C SEAN, BMP #### [facility] [address] [place] [address] [place] Type and Screenon 07-08-2022 ABO and Rh group Nom (Bld) Blood group A Rh(D) positive Normal [facility] Comment on above: Result Comment: PERF ORMED BY: [facility] [place] [address] PATHOLOGIST BRANCH MAKER ZENA CASTELLON M.D. Alanine aminotransferase [En zymatic activity/volume] in Serum or PlasmaOrdered By: Raul Quan on 07-01-2022 ALT [Catalytic activity/Vol] 9 U/L 7-52 [facility] Albumin [Mass/volume] in Ser um or Plasma by Bromocresol green (BCG) dye binding methoOrdered By: Raul Quan on 07-01-2022 Albumin BCG dye [Mass/Vol] 3.7 g/dL 3.5-5.7 [facility] Alkaline phosphatase [Enzyma tic activity/volume] in Serum or PlasmaOrdered By: Raul Quan on 07-01-2022 ALP [Catalytic activity/Vol] 96 U/L 34-104 [facility] Aspartate aminotransferase [ Enzymatic activity/volume] in Serum or PlasmaOrdered By: Raul Quan on 07-01-2022 AST [Catalytic activity/Vol] 14 U/L 13-39 [facility] Basophils Auto (Bld) [#/Vol] Ordered By: Raul Quan on 07-01-2022 Basophils (Bld) [#/Vol] 0.1 10*3/uL 0.0-0.2 [facility] Basophils/100 WBC Auto (Bld) Ordered By: Raul Quan on 07-01-2022 Basophils/100 WBC (Bld) 0.7 % . [facility] Bilirubin.total [Mass/volume ] in Serum or PlasmaOrdered By: Raul Quan on 07-01-2022 Bilirubin [Mass/Vol] 0.5 mg/dL 0.3-1.0 [facility] Calcium [Mass/volume] in Ser um or PlasmaOrdered By: Raul Quan on 07-01-2022 Calcium [Mass/Vol] 8.5 mg/dL 8.6-10.3 [facility] Carbon dioxide, total [Moles /volume] in Serum or PlasmaOrdered By: Raul Quan on 07-01-2022 CO2 [Moles/Vol] 24.6 mmol/L 21.0-31.0 [facility] Chloride [Moles/volume] in S aisha or PlasmaOrdered By: Raul Quan on 07-01-2022 Chloride [Moles/Vol] 100 mmol/L 98-107 [facility] Complete Blood Count Auto Di ffon 07-01-2022 Basophils (Bld) [#/Vol] 0.1 10*3/uL Normal 0.0-0.2 [facility] Comment on above: Result Comment: PERF ORMED BY: [place] [address] PATHOLOGIST BRANCH MAKER ZENA CASTELLON M.D. Performed By: #### C BC, CMP #### [address] Basophils/100 WBC (Bld) 0.7 % Normal . [facility] Comment on above: Performed By: #### C BC, CMP #### [address] Eosinophils (Bld) [#/Vol] 0.1 10*3/uL Normal 0.0-0.45 [facility] Comment on above: Performed By: #### C BC, CMP #### [address] Eosinophils/100 WBC (Bld) 1.5 % Normal . [facility] Comment on above: Performed By: #### C BC, CMP #### [address] Erythrocyte distribution width (RBC) [Ratio] 13.0 % Normal 12.0-14.8 [facility] Comment on above: Performed By: #### C BC, CMP #### [address] Hematocrit (Bld) [Volume fraction] 36.4 % Low 38.8-50.0 [facility] Comment on above: Performed By: #### C BC, CMP #### [address] Hemoglobin (Bld) [Mass/Vol] 12.1 g/dL Low 13.0-17.0 [facility] Comment on above: Performed By: #### C BC, CMP #### [address] Lymphocytes (Bld) [#/Vol] 1.6 10*3/uL Normal 1.00-4.8 [facility] Comment on above: Performed By: #### C BC, CMP #### [address] Lymphocytes/100 WBC (Bld) 19.3 % Normal . [facility] Comment on above: Performed By: #### C BC, CMP #### [address] MCH (RBC) [Entitic mass] 30.2 pg Normal 27.5-35.2 [facility] Comment on above: Performed By: #### C BC, CMP #### [address] MCV (RBC) [Entitic vol] 90.7 fL Normal 83.5-101 [facility] Comment on above: Performed By: #### C BC, CMP #### [address] Mean Corpuscular HGB Conc 33.3 g/dL Normal 32.5-35.6 [facility] Comment on above: Performed By: #### C BC, CMP #### [address] Monocytes (Bld) [#/Vol] 0.9 10*3/uL High 0.0-0.8 [facility] Comment on above: Performed By: #### C BC, CMP #### [address] Monocytes/100 WBC (Bld) 11.1 % Normal . [facility] Comment on above: Performed By: #### C BC, CMP #### [address] Neutrophils (Bld) [#/Vol] 5.7 10*3/uL Normal 1.8-7.7 [facility] Comment on above: Performed By: #### C BC, CMP #### [facility] [address] Neutrophils/100 WBC (Bld) 67.4 % Normal . [facility] Comment on above: Performed By: #### C BC, CMP #### [facility] [address] NRBC% 0.0 /100{WBC} Normal 0-0.5 [facility] Comment on above: Performed By: #### C BC, CMP #### [facility] [address] Platelet mean volume (Bld) [Entitic vol] 7.6 fL Normal 6.6-10.1 [facility] Comment on above: Performed By: #### C BC, CMP #### [facility] [address] Platelets (Bld) [#/Vol] 198 10*3/uL Normal 150-450 [facility] Comment on above: Performed By: #### C BC, CMP #### [facility] [address] RBC (Bld) [#/Vol] 4.01 10*6/uL Normal 3.90-5.60 [facility] Comment on above: Performed By: #### C BC, CMP #### [facility] [address] WBC (Bld) [#/Vol] 8.5 10*3/uL Normal 4.1-10.5 [facility] Comment on above: Performed By: #### C BC, CMP #### [facility] [address] Comprehensive Metabolic Pane santo 07-01-2022 Albumin [Mass/Vol] 3.7 g/dL Normal 3.5-5.7 [facility] Comment on above: Performed By: #### C BC, CMP #### [facility] [address] Albumin/Globulin [Mass ratio] 1.1 {ratio} Normal [facility] Comment on above: Performed By: #### C BC, CMP #### [facility] [address] ALP [Catalytic activity/Vol] 96 U/L Normal 34-104 [facility] Comment on above: Result Comment: PERF ORMED BY: [place] [address] PATHOLOGIST BRANCH MAKER ZENA CASTELLON M.D. Performed By: #### C BC, CMP #### [facility] [address] ALT [Catalytic activity/Vol] 9 U/L Normal 7-52 [facility] Comment on above: Performed By: #### C BC, CMP #### [facility] [address] Anion gap [Moles/Vol] 13.8 mmol/L Normal 6.0-15.0 [facility] Comment on above: Performed By: #### C BC, CMP #### [facility] [address] AST [Catalytic activity/Vol] 14 U/L Normal 13-39 [facility] Comment on above: Performed By: #### C BC, CMP #### [facility] [address] Bilirubin [Mass/Vol] 0.5 mg/dL Normal 0.3-1.0 [facility] Comment on above: Performed By: #### C BC, CMP #### [facility] [address] [place] [address] [place] Calcium [Mass/Vol] 8.5 mg/dL Low 8.6-10.3 [facility] Comment on above: Performed By: #### C BC, CMP #### [facility] [address] Chloride [Moles/Vol] 100 mmol/L Normal 98-107 [facility] Comment on above: Performed By: #### C BC, CMP #### [facility] [address] CO2 [Moles/Vol] 24.6 mmol/L Normal 21.0-31.0 [facility] Comment on above: Performed By: #### C BC, CMP #### [facility] [address] Creatinine [Mass/Vol] 0.87 mg/dL Normal 0.70-1.30 [facility] Comment on above: Performed By: #### C BC, CMP #### [facility] [address] [place] [address] [place] GFR/1.73 sq M.predicted MDRD (S/P/Bld) [Vol rate/Area] mL/min/{1.73_m2} Normal [facility] Comment on above: Performed By: #### C BC, CMP #### [facility] [address] [address] Globulin (S) [Mass/Vol] 3.4 g/dL Normal [facility] Comment on above: Performed By: #### C BC, CMP #### [facility] [address] Glucose [Mass/Vol] 163 mg/dL High 70-100 [facility] Comment on above: Result Comment: [place] Glucose Reference Range is dependent on time and content of last meal. Glucose of more than 200 mg/dL in a nonstressed, ambulatory subject supports the diagnosis of Diabetes Mellitus. ADA recommended reference range Performed By: #### C BC, CMP #### [facility] [address] [place] [address] [place] Potassium [Moles/Vol] 4.4 mmol/L Normal 3.5-5.1 [facility] Comment on above: Performed By: #### C BC, CMP #### [facility] [address] Protein [Mass/Vol] 7.1 g/dL Normal 6.4-8.9 [facility] Comment on above: Performed By: #### C BC, CMP #### [facility] [address] Sodium [Moles/Vol] 134 mmol/L Low 136-145 [facility] Comment on above: Performed By: #### C BC, CMP #### [facility] [address] Urea nitrogen [Mass/Vol] 17 mg/dL Normal 7-25 [facility] Comment on above: Performed By: #### C BC, CMP #### [facility] [address] [place] [address] Creatinine [Mass/volume] in Serum or PlasmaOrdered By: Raul Quan on 07-01-2022 Creatinine [Mass/Vol] 0.87 mg/dL 0.70-1.30 [facility] ECG 12 lead ECGon 07-01-2022 ECG 12 lead ECG [facility] [place] [address] [place] [address] Electrocardiograph Report Signed Patient: Chico Baker MR#: [id number] 284 : 1940 Acct:[id number] Age/Sex: 82 / M ADM Date: 07/01/22 Loc: Room: Type: [facility] Attending Dr: Raul Quan MD Ordering [...] Signed By Rosanne Shabazz DO 07/03 0637 [facility] Eosinophils Auto (Bld) [#/Vo l]Ordered By: Raul Quan on 07-01-2022 Eosinophils (Bld) [#/Vol] 0.1 10*3/uL 0.0-0.45 [facility] Eosinophils/100 WBC Auto (Bl d)Ordered By: Raul Quan on 07-01-2022 Eosinophils/100 WBC (Bld) 1.5 % . [facility] Erythrocyte distribution wid th Auto (RBC) [Ratio]Ordered By: Raul Quan on 07-01-2022 Erythrocyte distribution width (RBC) [Ratio] 13.0 % 12.0-14.8 [facility] Globulin Calc (S) [Mass/Vol] Ordered By: Raul Quan on 07-01-2022 Globulin (S) [Mass/Vol] 3.4 g/dL [facility] Glucose [Mass/volume] in Ser um or PlasmaOrdered By: Raul Quan on 07-01-2022 Glucose [Mass/Vol] 163 mg/dL 70-100 [facility] Comment on above: ADA recommended refe rence rangeRandom Glucose Reference Range is dependent on time and content of last meal. Glucose of more than 200 mg/dL in a nonstressed, ambulatory subject supports the diagnosis of Diabetes Mellitus. Hematocrit Auto (Bld) [Volum e fraction]Ordered By: Raul Quan on 07-01-2022 Hematocrit (Bld) [Volume fraction] 36.4 % 38.8-50.0 [facility] Hemoglobin [Mass/volume] in BloodOrdered By: Raul Quan on 07-01-2022 Hemoglobin (Bld) [Mass/Vol] 12.1 g/dL 13.0-17.0 [facility] Leukocytes [#/volume] correc shyann for nucleated erythrocytes in Blood by Automated counOrdered By: Raul Quan on 07-01-2022 WBC corrected for nucl RBC Auto (Bld) [#/Vol] 8.5 10*3/uL 4.1-10.5 [facility] Lymphocytes Auto (Bld) [#/Vo l]Ordered By: Raul Quan on 07-01-2022 Lymphocytes (Bld) [#/Vol] 1.6 10*3/uL 1.00-4.8 [facility] Lymphocytes/100 WBC Auto (Bl d)Ordered By: Raul Quan on 07-01-2022 Lymphocytes/100 WBC (Bld) 19.3 % . [facility] MCH Auto (RBC) [Entitic mass ]Ordered By: Raul Quan on 07-01-2022 MCH (RBC) [Entitic mass] 30.2 pg 27.5-35.2 [facility] MCHC Auto (RBC) [Mass/Vol]Or dered By: Raul Quan on 07-01-2022 MCHC (RBC) [Mass/Vol] 33.3 g/dL 32.5-35.6 [facility] MCV Auto (RBC) [Entitic vol] Ordered By: Raul Quan on 07-01-2022 MCV (RBC) [Entitic vol] 90.7 fL 83.5-101 [facility] Monocytes Auto (Bld) [#/Vol] Ordered By: Raul Quan on 07-01-2022 Monocytes (Bld) [#/Vol] 0.9 10*3/uL 0.0-0.8 [facility] Monocytes/100 WBC Auto (Bld) Ordered By: Raul Quan on 07-01-2022 Monocytes/100 WBC (Bld) 11.1 % . [facility] Neutrophils Auto (Bld) [#/Vo l]Ordered By: Raul Quan on 07-01-2022 Neutrophils (Bld) [#/Vol] 5.7 10*3/uL 1.8-7.7 [facility] Neutrophils/100 WBC Auto (Bl d)Ordered By: Raul Quan on 07-01-2022 Neutrophils/100 WBC (Bld) 67.4 % . [facility] No Panel InformationOrdered By: Raul Quan on 07-01-2022 Estimated GFR (CKD-EPI) > 60.0 mL/Min [facility] Creatinine Clearance (Chem N/A [facility] Nucleated erythrocytes [Pres ence] in Blood by Automated countOrdered By: Raul Quan on 07-01-2022 Nucleated RBC Auto Ql (Bld) 0.0 /100{WBC} 0-0.5 [facility] Platelet mean volume Auto (B ld) [Entitic vol]Ordered By: Raul Quan on 07-01-2022 Platelet mean volume (Bld) [Entitic vol] 7.6 fL 6.6-10.1 [facility] Platelets Auto (Bld) [#/Vol] Ordered By: Rual Quan on 07-01-2022 Platelets (Bld) [#/Vol] 198 10*3/uL 150-450 [facility] Potassium [Moles/volume] in Serum or PlasmaOrdered By: Raul Quan on 07-01-2022 Potassium [Moles/Vol] 4.4 mmol/L 3.5-5.1 [facility] Protein [Mass/volume] in Ser um or PlasmaOrdered By: Raul Quan on 07-01-2022 Protein [Mass/Vol] 7.1 g/dL 6.4-8.9 [facility] RBC Auto (Bld) [#/Vol]Ordere d By: Raul Quan on 07-01-2022 RBC (Bld) [#/Vol] 4.01 10*6/uL 3.90-5.60 [facility] Serum or plasma albumin/glob ulin mass ratioOrdered By: Raul Quan on 07-01-2022 Albumin/Globulin [Mass ratio] 1.1 {ratio} [facility] Serum or plasma anion gap de terminationOrdered By: Raul Quan on 07-01-2022 Anion gap [Moles/Vol] 13.8 mmol/L 6.0-15.0 [facility] Sodium [Moles/volume] in Ser um or PlasmaOrdered By: Raul Quan on 07-01-2022 Sodium [Moles/Vol] 134 mmol/L 136-145 [facility] Urea nitrogen [Mass/volume] in Serum or PlasmaOrdered By: Raul Quan on 07-01-2022 Urea nitrogen [Mass/Vol] 17 mg/dL 7-25 [facility] WBC Auto (Bld) [#/Vol]Ordere d By: Raul Quan on 07-01-2022 WBC (Bld) [#/Vol] 8.5 10*3/uL 4.1-10.5 [facility] Patient Educationon 06-25-19 Patient Education [...] these instructions at home: Medicines ? Take qvif-omf-xdtorie and prescription medicines only as told by [...] the blood stops without treatment. ? Take fmos-kjd-zxuhjxe and prescription medicines only as told by your health care provider. ? Drink enough fluid to keep your urine pale yellow. This information is not intended to replace advice given to you by your health care provider. Make sure you discuss any questions you have with your health care provider. Document Revised: 10/23/2020 Document Reviewed: 10/23/2020 [employer] Patient Education ? 2022 [employer]. Normal [facility] Screenson 06-24-2022 Screens [id number]#1.00CD:127 Normal [facility] Screens [id number]#[id number]:127 [facility] Urology Office/Clinic Noteon 06-24-2022 Urology [...] Urnls Dip Stick Auto w/o Microscopy POC 91161 Urology Procedure Order 4. Penile rash (R21: Rash and other nonspecific skin eruption) Pt states rash has completely cleared up after stopping Bactrim. Denies irritation. Head of penis is not red, but is discolored. Not bothersome. D/c use of cream. Resolved Ordered: Urology Procedure Order 5. ED (erectile dysfunction) (N52.9: Male erectile dysfunction, unspecified) (more content not included)... Normal [facility] Comment on above: Result Comment: Elec tronically Signed By: Mo LEIJA, Ivelisse Ling\Date and Time Signed: 06/24/22 10:24 EDT RAD - CT Reporton 05-15-2022 RAD - CT Report [id number]#1.00CD:127 Normal [facility] RAD - CT Reporton 05-14-2022 RAD - CT Report [id number]#1.00CD:127 Normal [facility] RAD - CT Report [id number]#1.00CD:127 Normal [facility] CT angio abdomen pelvison CT angio abdomen pelvis [facility] [address] CT Scan Report Signed Patient: Chico Baker MR#: [id number] 284 : 1940 Acct:[id number] Age/Sex: 81 / M ADM Date: 05/11/22 Loc: CT Room: Type: [facility] Attending Dr: Raul Quan MD Copies to: [...] The graft appears to be patent. 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 Impression dictated by: Woody Payan Jr., Marvin05/11/2022 3:58 PM Dictation Location: [place] [address] Transcribed By: [facility] 05/11/22 1558 Dictated By: Woody Payan Jr, DO 05/11/22 1551 Signed By: 05/11/22 1558 [facility] CT angio neckon 05-11-2022 CT angio neck [facility] Main [place] [address] [place] [address] CT Scan Report Signed Patient: Chico Baker#: [id number] 284 : 1940 Acct:[id number] Age/Sex: 81 / M ADM Date: 05/11/22 Loc: CT Room: Type: [facility] Attending Dr: Raul Quan MD Copies to: Raul Quan MD Ordering Provider: Raul Quan MD Date of Service: 05/11/22 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, I71.4 ([id number]) CT/CT angio head: I65.23, I71.4 CTA head [...] Raul Solo M.D.05/11/2022 5:04 PM Dictation Location: [place] [address] Transcribed By: [facility] 05/11/22 170 Dictated By: Raul Solo DO 05/11/22 1648 Signed By: 05/11/221703 [facility] Creatinine (Bld) [Mass/Vol]O rdered By: Raul Quan on 05-11-2022 Creatinine [Mass/Vol] 0.9 mg/dL 0.6-1.3 [facility] Comment on above: ER/ESD physician is notified/shown all ISTAT results.Critical values may be confirmed by laboratory testing ifdeemed necessary by ER attending doctor. ISTAT XRay CREon 05-11-2022 Creatinine [Mass/Vol] 0.9 mg/dL Normal 0.6-1.3 [facility] Comment on above: Result Comment: ER/E SD physician is notified/shown all ISTAT results. Critical values may be confirmed by laboratory testing if deemed necessary by ER attending doctor. Performed By: #### C SEAN, BMP #### [address] ISTAT GFR ( > 60 Normal [facility] Comment on above: Result Comment: GFR estimated reference range: According to KDOQI guidelines, <60 ml/min/1.73m2 is sufficient to diagnose a patient with chronic kidney disease. PERFORMED BY: [place] [address] PATHOLOGIST [employer] ZENA CASTELLON M.D. Performed By: #### C BC, BMP #### [address] ISTAT GFR (Non- Am > 60 [facility] Comment on above: Performed By: #### C SEAN, BMP #### [address] No Panel InformationOrdered By: Raul Quan on 05-11-2022 POC Estimated GFR > 60 [facility] Comment on above: GFR estimated refere nce range: According to KDOQI guidelines, <60 ml/min/1.73m2 is sufficient to diagnose a patient with chronic kidney disease. POC Estimated GFR Non- Amer > 60 [facility] Coding Summary.on 04-20-2022 Coding Summary. CD:[id number] Gh0bWw +PGhlYWQ+RQ4KVLHwQ10mzVMef S1VE3cCIH0MHDNVDHSGNF8BHA3 raBF5ZXyuH1SrhgMt JriagHOaJZ54VVh7JIE4gLthAW cvuD5nqECgY7r7DcKsTC58xV22 PNniAPUuYiX5WwPsrptcbQXh W4jkKuKgtENpOsb+PHRhYmxlIH qqQBNpHUqwRHBpMqHurBxfSS3d An0mZUJsYBTyuXqgbNRuPvHe w3ksRPGrAXumZA0wxCmtR3NcmK X5ZZSnj0m4Zt46rDZ+PHRkIHN0 zMxwBQxqe577JvObg7suVOE4 eHSkYXzzVBP6S47ln9W6WRMxXA HkOAZ3wOX2aZ6ktMnitcveT7Mz pCAbApH5ZON4kXRwfB9exIef flhykH4fWjq+F36WHR1BQIXBMD 6PCwu4Y4NfHihrwND+XB37MTPp UY77xWOtyKUxo3ejbXh1FaWj TQBcWHX4pMeoTUlrv4RcUMYrG4 1iiYEro3D3DHXopWbuoVRzEjLi fDW1aT2qCHirwfbiv6cgzvsh Hrrmd1zaat80pZ02M00fWJrcDV GgQNS1RMZnJUOmqDzlsc8clL2h Ii8+HAgau6ulm3nebXj9GqIg RYWmnqVhhYzeJYP8n4UhPu75P9 TxyYgri3KbYaf0uh78kLLyk0H3 nPW6FUyrBPUvzB5zFNkzLsZ5 NQVuSzGwuF35eNXuNTumAe8igP zcrPsqDA1pMFOugslaCKHgcY8j OHUzrNAmfKvcAC8ePCTfwfuq p028FpZdURT6GXYtsGFtX3GupF 6cXmUwIEYcWCHjJ1AtqPJmYSkc S210ZJcnIrH0XJHzqdSmT7Qc OXYaqMjhLiM1t4X0Yc6Dm4Tvct jpMVJ6JOuhXIMiJeUyZhPxHlH3 V1AbUbj5UINjbCfzMY1rC0Cl NOJnnbqvkakvnKW1PONzJCMqiJ 51zUYzISdwIx9yt0F5y498DFPv MSPonA04Uz7nvWfuRDEdjDPS pQ8heeaub2begiczYyUpQWPkJI n1MMi7UPFgxWqnUwNhLPT1ZuA9 JKW3aEIpdG1ccWvdxjiqeA0i Oyc+Z31otX3fKHK2WAR7fuutXI TbxnZuCV44MY48C4TuYatczBGn bGU+XBNxobFtmIyjAM7iEzBf q5hmc5LsJFueB0CvOUMgZRjgIi x1BNOvYOG9rRI9uX7yEKLvYQwm i1C3uFF4A9EnivKors4ij3lx AYVuWMrsE27fuBCpl4A5UGGukI H8YXEodFwnMmEdsQ72Skc+PGNv aVcxg8RgNidns8ezl4hbgZl8 CzOoUJGmiwEcbMsgQCP0l1SaAo 13H82qYLwpCQQwXZGqHIJdWFWb zHhpik7acW7jLa0+PGNvbCB3 nRP7yV4xIHPvOwB7VErsQ015Vq LdzQOnFmyjc1vvj4elmSg0WhTm RXYfpbIxvTygPBS0b4NbLu57 U09uANlmMQAkINNfVTOdTFUlmT rqwy4qlY9bUv4+ZG5ns2fozu67 nV04wFE+QPDmHKL7zWdrPAhg NHQpqI3xXPfnAtY1CKDwQlKswR 45lUMlUGzcGf4ipLbugVeeMQ4y WIMlirqos442PrMxi0jsMWOv tBCsCAxtIMI3V47cm7W8YPXlUB GsYLW7dYV8pM7vpNnfzurnyYBe gDycpvJjjOupECxzIJjaE189 IHRvcDsnPlBhdGllbnQgTmFtZT w2J2HrUav6JLMuxYwwGD0jsBRv USecRb8weVqjwHdaEI4uURHn hvgcu290TwLso1wcWYVbpJOoFC rgXWK2K48gz8A7HGNeIHKyNZH5 oLR9dP6guJcbfqfseNVemGxd uoNwuYkuPFirPGtnT586AXCblI dkOpCvgmYfMHLwxYQ4WA74HX91 eJQei5Q4uGR4W6FiBNVjrxjb ddfgpKP1NZDtJROvvZ58Gr0pqG bpXj6dDJLnBOY2FFGneBYkQ2Bt eD1nCxXcEUYlOBQxM6XybLAn PGfyR660NGnkRyK7MZDkcdCiG3 NbATMlbJmbMtN1y5T1Bo7GN5L0 RC76HR34hBPca3X8qXU4G2Hq JJSgcvamdrjqeOY0AFWhFSAteW 51Cw1pqBqzQz6dPTOnBQY8GNRx kLSdL5LmjK4mThLyJUGmLAOy D9YujYQgEPswU135TJzpSrW6SX HxkwRdS7RnYIWlaXeqVtI0x0B7 Dl5HHZy4DE06OK34vHSag1Q9 dGN2P3KgUVSsfylkpmuuhUL1OD DxBSQpcK35Ra3dqTxbFy7gGZAw QBK0XGYhkGEcM9WpuP7lJfUs MPAtLTBkI6SciZZjBMzrJ826JZ lqZeR3BTLizzZgB6TkYAZnhBvz NaO4l7H0Ut3VZWFwAO27NIS8 yTR1LP67RZ74R4CgQdoliUOepF U+PHRhYmxlIHdpZHRoPScxMDAl TbYrhBcxWV8jYf7fVKWlLHBo iEnjfWEjTySiw0qpZXEiFUbmNM 3euCweG9LgdXN4MZCxd7t2Jv68 A06lW4KunKB+WSZfwHC6fCW7 bM5hSjVfWgV1LZubY460ErBryF HwZrfdl6rcq2gohEt3SrG0NHWs xeJjaIiyFSJ5q7AaMl17D64g IHdpZHRoPSIxNSUiIHZhbGlnbj 0icQ0rRd7+PVHvcKC1iHC6pH9l BiQvAgG1TLeaK631PiMxwVAw Fsphg9mcj9jrnVf9QnVzJYIyji QwnEwaRVV7b4MbUx24M6BxcFbd c7ZhEgu3de64nCAzi5B6jKB9 X4NkIZZcnhotvSCgmXmdEO3pLQ BxrjuhJMPscZ6cVCUcR9e9GsQq SkR0YJcbV0AwgxY7EFXxtHCs DUmpSAC8Y35pl1R5MMIjWBTeKY D5iPJ6gY7yvMcfrjrtmLXvfVqe maRufMygLEahHSzvP662JBVj eEjlLLPyfI2fBXDmcFPvkLywBW 5kOIPzzbaeFf5EAG6IXKSASOMR BYONVPm3B5IjAca0ALLutEyy BU9vtBPpJDfcLw6jlOzdjXtxZD 5jLUDukhxvXKIigE2nUHAqdPPj cUelHA7sJEQubzyqk394AwCf MPV8UMUrcTNgP5JqnD2aJyTjOS ZgOMCmF7BtbBZfVRanY612QOdu HlS0MGJefdZtW0PmPNWdzFup JtT1f5U0Bg7mDJ2rTZ1wHEPuTB 84IM38dTPee2X2bWJ6L3QeZGNt bmtrxaexyBK8XBJjCXIywI76 eSLdWBjlYc7se5J0m229KGGxEG IpgX70As6wzCtpZRQjrFXQeW3y zizgb1fvxodcToEoTUOlVUt2 XSi4BVDopFvxDlKoMHB5IjS6PK N5gLLtzU5fiZbhfchqnE1vBrz+ SaklEFYslsE8J9FaRcr6LLIf nGtoWT2plMOtDDrvQb8xcKepwM kaOS9kGGBodjolZNTwxV8mRAXv sYIiyPinVG2sFQGcddjqs736 QkLeEZR2TASopDMwV5OeqZ0xVe WiBIUfAJYyC6QrnFMaOOcvD910 HFzuZoW1NBDlliCuZ1JbEBBm xUffNcI2i7F2Eb1OREwkUB18SW 11wTPus1N1zXF7E8VmESRrdmqn acwrqHR1CVZcVTRxfS53lCTq JZpbZl9ts4A1c615NMHfJUHwbA 18Xw2bqZdaOJOpyNUQtX1xyxyw z6duxtjdMqZvHEVtSDq0ZZe7 HUJwqOibWgLaOMR9HrP3JEM7gY SetR6auNqjuljjlM4gMcg+TGFi SGLff5Ben3VeWO66XO69P3Ni PjwvdGFibGU+PHRhYmxlIHdpZH WyWYhaHQAxSyIkrDtwXG2qZf5k RXTwOFVufLtcmNQcQgRff9th YQUpPCdtQS0oeGihA2RsdRI9XZ Bkb2x4Qs05L60rX1IcrEW+PGNv wDB7zHF9yJ0hTqKbUiI3QEhc N190BlUuuORdTacyp1qyk7eljM i4WwSwMFBjycFqrEuvLJS6q4Oj Ng90F43pAEvvZREdNOWbVVPs YRNnbYjmuv5xgX0oUo1+PGNvbC F4bMK5gR1oCmTaLhV6UCztA137 PzOzhMSgYfidD50cK1LnfJX+ OKVwNmw7KMWloFjwCP8feMKpLM arWa2nDNS4HgLhCqUpDNdeZ9Dl HROevojzlcmfvTV6PVRwOASg dA91Wq9gjOfzPa3xXGKnBRA2SU OxaOLuE4LduC1yVsQiZCPnHABa T4ZbzONbRVtlN678JVsqSdI6 WWLdliZgO4VlKMXuoDjfGpV1s8 F7Hf9LoGcucCTeIG4jGaZdHJh5 J1JwDtz1VHMbvMbqQF0oqXNs MGkwCp6pwWdzaIcmXQ9vFDQdof qau685UgCmw5yoHFGbiSSjCJan AXF2I13vw2U4ARLdMMRsLDC3 mMJ2wE0vxZtlqqzmwLQnqEdfsj KrcFqbOSbqCGvoT055FPXfiQtc KlWSTdb2Q8RhXsr3FTGysBqn LG6dwRPwIMrjNi0fbPsbaWpaSW 2eGXZnalckm727RzIcd5oyQIDj lQHwCQhfSKJ5K73bd3Y4ZPOb JJDlRUO5hGV8uI3byDuximkvmW LopEmbonUluEhvGVwdIPwsR841 OUWdgImsJz3WMes3N1CuVws4 UOEymUlmHB5drCXyCVpfVk0xwQ kosErsVK3eMKTjwwkfs491CkRh q8rcMLWkuQTbXYykXEE8L75g l0S2VFAxYQAoKKC4bPA2uA8nbL lnbjogbGVmdDsgdmVydGljYWwt CAmiD823YSQbuMsjEsKorWFo OjwvdGQ+LQ61dk78B1PhOshuKu k3UOWxTYO0mLA2yX8bNLAvNCxv q9B7fPN0Q8JmtlNdvt7lv0oj YXBz (more content not included)... [facility] Screenson 04-16-2022 Screens [id number]#[id number]:127 Normal [facility] Screens [id number]#[id number]:127 Normal [facility] Ambulatory Visit Summaryon 0 04-15-2022 Ambulatory Visit Summary CHICO BAKER :1940 Visit Date:04/15/2022 Ambulatory Visit Instructions Your Diagnosis Penile rash Prostatitis Microhematuria BPH with obstruction/lower urinary tract symptoms History of kidney stones Tests Performed Urnls Dip Stick Auto w/o Microscopy POC [address]352 CT Abdomen/Pelvis w/o Contrast -- Results Pending [...] Ivelisse Hassan MD Where: [facility] Patient Educationon 04-15-19 23 Patient [...] Follow these instructions at home: ? Take rvba-jvc-hbrvltq and prescription medicines only as told by [...] 05/07/2018 Docum (more content not included)... Normal [facility] URINALYSISOrdered By: Kirstie sanchez on 04-15-2022 Bacteria LM Ql (Urine sed) Trace /HPF Normal Trace/HPF [facility] UA Auto SS Bilirubin Ql (U) Negative (04/15/22 12:14 PM) Normal Negative [facility] UA Auto SS Calcium [...] Interpretation Code Negative [facility] UA Auto SS [place].plasma/[place] .RBC (Bld) [Mass ratio] 21-30 /HPF Invalid [...] PM) Invalid Interpretation Code 1.005 - 1.030 [facility] UA Auto SS UA Spec Desc Random Urine (04/15/22 12:14 PM) Normal [facility] UA Auto SS Urobilinogen Qn (U) 0.1938992 {Nikki'U}/dL Normal 0.0 - 1.0 EU/dL [facility] UA Auto SS WBC Auto Ql (U) 1+ *ABN* (04/15/22 12:14 PM) Invalid Interpretation Code Negative [facility] UA Auto SS WBC LM.HPF (Urine sed) [#/Area] 0-5 /HPF Normal 0-5/HPF [facility] UA Auto SS Urinalysison 04-15-2022 Bacteria LM Ql (Urine sed) TRACE Normal Trace [facility] Comment on above: Performed By: #### 1 [id number] ####[facility] [address] [place] [address] Bilirubin Ql (U) Negative Normal Negative [facility] Comment on above: Performed By: #### 1 [id number] ####[facility] [address] [place] [address] Calcium oxalate crystals LM Ql (Urine sed) Present Normal [facility] Comment on above: Performed By: #### 1 [id number] ####[facility] [address] [place] [address] Clarity (U) CLEAR Normal Clear [facility] Comment on above: Performed By: #### 1 [id number] ####[facility] [address] [place] [address] Color (U) YELLOW Normal Yellow [facility] Comment on above: Performed By: #### 1 [id number] ####[address] [address] Epithelial cells.squamous LM.HPF (Urine sed) [#/Area] 0-2 Normal 0-2 [facility] Comment on above: Performed By: #### 1 [id number] ####[facility] [address] [place] [address] Glucose Test strip (U) [Mass/Vol] Negative Normal Negative [facility] Comment on above: Performed By: #### 1 [id number] ####[address] [address] Hemoglobin Ql (U) 3+ Abnormal Negative [facility] Comment on above: Performed By: #### 1 [id number] ####[address] [address] Ketones (U) [Mass/Vol] TRACE Abnormal Negative [facility] Comment on above: Performed By: #### 1 [id number] ####[address] [address] [place].plasma/[place] .RBC (Bld) [Mass ratio] 21-30 Abnormal 0-3 [facility] Comment on above: Performed By: #### 1 [id number] ####[address] [address] Mucus Ql (Urine sed) TRACE Normal [facility] Comment on above: Performed By: #### 1 [id number] ####[address] [address] Nitrite Ql (U) Negative Normal Negative [facility] Comment on above: Performed By: #### 1 [id number] ####[address] [address] pH (U) 6.0 [pH] Invalid Interpretation Code 5.0-9.0 [facility] Comment on above: Performed By: #### 1 [id number] ####[address] [address] Protein (U) [Mass/Vol] Negative Normal Negative [facility] Comment on above: Performed By: #### 1 [id number] ####[address] [address] Specific gravity (U) [Rel density] >=1.030 Invalid Interpretation Code 1.005-1.030 [facility] Comment on above: Performed By: #### 1 [id number] ####[facility] [address] [place] [address] Type of Urine collection method Random Urine Normal [facility] Comment on above: Performed By: #### 1 [id number] ####[facility] [address] [place] [address] Urobilinogen Qn (U) 0.2 {Nikki'U}/dL Normal 0.0-1.0 [facility] Comment on above: Performed By: #### 1 [id number] ####[facility] [address] [place] [address] WBC Auto Ql (U) 1+ Abnormal Negative [facility] Comment on above: Performed By: #### 1 [id number] ####[facility] [address] [place] [address] WBC LM.HPF (Urine sed) [#/Area] 0-5 Normal 0-5 [facility] Comment on above: Performed By: #### 1 [id number] ####[facility] [address] [place] [address] Urology Office/Clinic Noteon 04-15-2022 Urology Office/Clinic Note [...] 02/18/22 was neg. Micro UA done 02/18/ 4-20 RBCs. UA today shows large blood. [...] allergy prep. Pt having scan done at [facility] in May for aneurysm, will give [...] wo con Follow-up With When Contact Information Mo LEIJA, Ivelisse Schreiber, URL, URO Additional Instructions: f/u 3 mos Patient Education Prostatitis I, Kyra Lombardi, personally scribed for Dr. Hassan on 04/15/2022 10:12:58. . Documentation recorded by the scribe, Kyra Lombardi, accurately reflects the services(s) I performed and decisions made by me. Authenticated by Dr. Hassan on 04/15/2022 17:42:02. Problem List/Past Medical Histo (more content not included)... Normal [facility] Comment on above: Result Comment: Elec [...] Interpretation Code Negative [facility] UA Auto SS [place].plasma/[place] .RBC (Bld) [Mass ratio] 4-20 /HPF Normal [...] AM) Invalid Interpretation Code 1.005 - 1.030 [facility] UA Auto SS UA Spec Desc Random Urine (02/11/22 10:38 AM) Normal [facility] UA Auto SS Urobilinogen Qn (U) 0.8662029 {Nikki'U}/dL Normal 0.0 - 1.0 EU/dL [facility] UA Auto SS WBC Auto Ql (U) 1+ *ABN* (02/11/22 10:38 AM) Invalid Interpretation Code Negative [facility] UA Auto SS WBC LM.HPF (Urine sed) [#/Area] 0-5 /HPF Normal 0-5/HPF [facility] UA Auto SS Basic Metabolic Panelon 12-0 Anion gap [Moles/Vol] 10.4 mmol/L Normal 6.0-15.0 [facility] Comment on above: Performed By: #### C BC, BMP #### [facility] [address] [place] [address] [place] Calcium [Mass/Vol] 8.4 mg/dL Normal 8.2-10.2 [facility] Comment on above: Performed By: #### C BC, BMP #### [facility] [address] [place] [address] [place] Chloride [Moles/Vol] 101 mmol/L Normal 95-114 [facility] Comment on above: Performed By: #### C BC, BMP #### [facility] [address] [place] [address] [place] CO2 [Moles/Vol] 28.2 mmol/L Normal 22.0-30.0 [facility] Comment on above: Performed By: #### C BC, BMP #### [facility] [address] [place] [id number] [place] Creatinine [Mass/Vol] 0.94 mg/dL Normal 0.64-1.27 [facility] Comment on above: Performed By: #### C BC, BMP #### [facility] [address] [place] [address] [place] Creatinine Clr Calc Pharmacy 57.50 Normal [facility] Comment on above: Result Comment: PERF ORMED BY: [place] [address] PATHOLOGIST BRANCH MAKER ZENA CASTELLON M.D. Performed By: #### C BC, BMP #### [facility] [address] [address] Estimated GFR ( Jojo > 60 [facility] Comment on above: Result Comment: GFR estimated reference range: According to KDOQI guidelines, <60 ml/min/1.73m2 is sufficient to diagnose a patient with chronic kidney disease. Performed By: #### C BC, BMP #### [facility] [address] Estimated GFR (Non- Am > 60 [facility] Comment on above: Performed By: #### C BC, BMP #### [address] Glucose [Mass/Vol] 109 mg/dL High 70-100 [facility] Comment on above: Result Comment: [place] Glucose Reference Range is dependent on time and content of last meal. Glucose of more than 200 mg/dL in a nonstressed, ambulatory subject supports the diagnosis of Diabetes Mellitus. ADA recommended reference range Performed By: #### C BC, BMP #### [address] Potassium [Moles/Vol] 4.6 mmol/L Normal 3.5-5.1 [facility] Comment on above: Performed By: #### C BC, BMP #### [address] Sodium [Moles/Vol] 135 mmol/L Low 136-146 [facility] Comment on above: Performed By: #### C BC, BMP #### [address] Urea nitrogen [Mass/Vol] 11 mg/dL Normal 9-23 [facility] Comment on above: Performed By: #### C BC, BMP #### [address] Basophils Auto (Bld) [#/Vol] Ordered By: Raul Quan on 02-05-2022 Basophils (Bld) [#/Vol] 0.1 10*3/uL 0.0-0.2 [facility] Basophils/100 WBC Auto (Bld) Ordered By: Raul Quan on 02-05-2022 Basophils/100 WBC (Bld) 0.6 % . [facility] Complete Blood Count Auto Di ffon 02-05-2022 Basophils (Bld) [#/Vol] 0.1 10*3/uL Normal 0.0-0.2 [facility] Comment on above: Result Comment: PERF ORMED BY: [place] [address] PATHOLOGIST [employer]ANCH [employer] ZENA CASTELLON M.D. Performed By: #### C SEAN, BMP #### [address] Basophils/100 WBC (Bld) 0.6 % Normal . [facility] Comment on above: Performed By: #### C BC, BMP #### [address] Eosinophils (Bld) [#/Vol] 0.1 10*3/uL Normal 0.0-0.45 [facility] Comment on above: Performed By: #### C BC, BMP #### [address] Eosinophils/100 WBC (Bld) 0.7 % Normal . [facility] Comment on above: Performed By: #### C BC, BMP #### [address] Erythrocyte distribution width (RBC) [Ratio] 13.8 % Normal 12.0-14.8 [facility] Comment on above: Performed By: #### C BC, BMP #### [address] Hematocrit (Bld) [Volume fraction] 34.6 % Low 38.8-50.0 [facility] Comment on above: Performed By: #### C BC, BMP #### [address] Hemoglobin (Bld) [Mass/Vol] 11.4 g/dL Low 13.0-17.0 [facility] Comment on above: Performed By: #### C BC, BMP #### [facility] [address] Lymphocytes (Bld) [#/Vol] 1.5 10*3/uL Normal 1.00-4.8 [facility] Comment on above: Performed By: #### C BC, BMP #### [facility] [address] [place] [address] [place] Lymphocytes/100 WBC (Bld) 14.4 % Normal . [facility] Comment on above: Performed By: #### C BC, BMP #### [address] MCH (RBC) [Entitic mass] 30.1 pg Normal 27.5-35.2 [facility] Comment on above: Performed By: #### C BC, BMP #### [address] MCV (RBC) [Entitic vol] 91.6 fL Normal 83.5-101 [facility] Comment on above: Performed By: #### C BC, BMP #### [address] Mean Corpuscular HGB Conc 32.9 g/dL Normal 32.5-35.6 [facility] Comment on above: Performed By: #### C BC, BMP #### [place] [address] [place] Monocytes (Bld) [#/Vol] 1.5 10*3/uL High 0.0-0.8 [facility] Comment on above: Performed By: #### C BC, BMP #### [place] [address] [place] Monocytes/100 WBC (Bld) 14.8 % Normal . [facility] Comment on above: Performed By: #### C BC, BMP #### [place] [address] [place] Neutrophils (Bld) [#/Vol] 7.1 10*3/uL Normal 1.8-7.7 [facility] Comment on above: Performed By: #### C BC, BMP #### [facility] [address] Neutrophils/100 WBC (Bld) 69.5 % Normal . [facility] Comment on above: Performed By: #### C BC, BMP #### [facility] [address] NRBC% 0.1 /100{WBC} Normal 0-0.5 [facility] Comment on above: Performed By: #### C BC, BMP #### [facility] [address] Platelet mean volume (Bld) [Entitic vol] 7.9 fL Normal 6.6-10.1 [facility] Comment on above: Performed By: #### C BC, BMP #### [facility] [address] Platelets (Bld) [#/Vol] 142 10*3/uL Significant change down 150-450 [facility] Comment on above: Performed By: #### C BC, BMP #### [facility] [address] RBC (Bld) [#/Vol] 3.77 10*6/uL Low 3.90-5.60 [facility] Comment on above: Performed By: #### C BC, BMP #### [facility] [address] [place] [address] [place] WBC (Bld) [#/Vol] 10.3 10*3/uL Normal 4.1-10.5 [facility] Comment on above: Performed By: #### C BC, BMP #### [place] [address] [place] Creatinine and Glomerular fi ltration rate.predicted panel (S/P/Bld)Ordered By: Raul Quan on 02-05-2022 Creatinine [Mass/Vol] 0.94 mg/dL 0.64-1.27 [facility] Eosinophils Auto (Bld) [#/Vo l]Ordered By: Raul Quan on 02-05-2022 Eosinophils (Bld) [#/Vol] 0.1 10*3/uL 0.0-0.45 [facility] Eosinophils/100 WBC Auto (Bl d)Ordered By: Raul Quan on 02-05-2022 Eosinophils/100 WBC (Bld) 0.7 % . [facility] Erythrocyte distribution wid th Auto (RBC) [Ratio]Ordered By: Raul Quan on 02-05-2022 Erythrocyte distribution width (RBC) [Ratio] 13.8 % 12.0-14.8 [facility] Estimated glomerular filtrat ion rate (GFR) non- AmericanOrdered By: Raul Quan on 02-05-2022 GFR/1.73 sq M.predicted among non-blacks MDRD (S/P/Bld) [Vol rate/Area] > 60 mL/Min [facility] Hematocrit Auto (Bld) [Volum e fraction]Ordered By: Raul Quan on 02-05-2022 Hematocrit (Bld) [Volume fraction] 34.6 % 38.8-50.0 [facility] Hemoglobin [Mass/volume] in BloodOrdered By: Raul Quan on 02-05-2022 Hemoglobin (Bld) [Mass/Vol] 11.4 g/dL 13.0-17.0 [facility] Leukocytes [#/volume] correc shyann for nucleated erythrocytes in Blood by Automated counOrdered By: Raul Quan on 02-05-2022 WBC corrected for nucl RBC Auto (Bld) [#/Vol] 10.3 10*3/uL 4.1-10.5 [facility] Lymphocytes Auto (Bld) [#/Vo l]Ordered By: Raul Quan on 02-05-2022 Lymphocytes (Bld) [#/Vol] 1.5 10*3/uL 1.00-4.8 [facility] Lymphocytes/100 WBC Auto (Bl d)Ordered By: Raul Quan on 02-05-2022 Lymphocytes/100 WBC (Bld) 14.4 % . [facility] MCH Auto (RBC) [Entitic mass ]Ordered By: Raul Quan on 02-05-2022 MCH (RBC) [Entitic mass] 30.1 pg 27.5-35.2 [facility] MCHC Auto (RBC) [Mass/Vol]Or dered By: Raul Quan on 02-05-2022 MCHC (RBC) [Mass/Vol] 32.9 g/dL 32.5-35.6 [facility] MCV Auto (RBC) [Entitic vol] Ordered By: Raul Quan on 02-05-2022 MCV (RBC) [Entitic vol] 91.6 fL 83.5-101 [facility] Monocytes Auto (Bld) [#/Vol] Ordered By: Raul Quan on 02-05-2022 Monocytes (Bld) [#/Vol] 1.5 10*3/uL 0.0-0.8 [facility] Monocytes/100 WBC Auto (Bld) Ordered By: Raul Quan on 02-05-2022 Monocytes/100 WBC (Bld) 14.8 % . [facility] Neutrophils Auto (Bld) [#/Vo l]Ordered By: Raul Quan on 02-05-2022 Neutrophils (Bld) [#/Vol] 7.1 10*3/uL 1.8-7.7 [facility] Neutrophils/100 WBC Auto (Bl d)Ordered By: Raul Quan on 02-05-2022 Neutrophils/100 WBC (Bld) 69.5 % . [facility] No Panel InformationOrdered By: Raul Quan on 02-05-2022 Estimated GFR () > 60 mL/Min [facility] Comment on above: GFR estimated refere nce range: According to KDOQI guidelines, <60 ml/min/1.73m2 is sufficient to diagnose a patient with chronic kidney disease. Pharmacy Creatinine Clearance (Chem 57.50 [facility] Nucleated erythrocytes [Pres ence] in Blood by Automated countOrdered By: Raul Quan on 02-05-2022 Nucleated RBC Auto Ql (Bld) 0.1 /100{WBC} 0-0.5 [facility] Platelet mean volume Auto (B ld) [Entitic vol]Ordered By: Raul Quan on 02-05-2022 Platelet mean volume (Bld) [Entitic vol] 7.9 fL 6.6-10.1 [facility] Platelets Auto (Bld) [#/Vol] Ordered By: Raul Quan on 02-05-2022 Platelets (Bld) [#/Vol] 142 10*3/uL 150-450 [facility] Comment on above: Delta: 198 on RBC Auto (Bld) [#/Vol]Ordere d By: Raul Quan on 02-05-2022 RBC (Bld) [#/Vol] 3.77 10*6/uL 3.90-5.60 [facility] Serum or plasma anion gap de terminationOrdered By: Raul Quan on 02-05-2022 Anion gap [Moles/Vol] 10.4 mmol/L 6.0-15.0 [facility] Serum or plasma calcium richy urement (mass/volume)Ordered By: Raul Quan on 02-05-2022 Calcium [Mass/Vol] 8.4 mg/dL 8.2-10.2 [facility] Serum or plasma chloride young surement (moles/volume)Ordered By: Raul Quan on 02-05-2022 Chloride [Moles/Vol] 101 mmol/L 95-114 [facility] Serum or plasma glucose richy urement (mass/volume)Ordered By: Raul Quan on 02-05-2022 Glucose [Mass/Vol] 109 mg/dL 70-100 [facility] Comment on above: ADA recommended refe rence rangeRandom Glucose Reference Range is dependent on time and content of last meal. Glucose of more than 200 mg/dL in a nonstressed, ambulatory subject supports the diagnosis of Diabetes Mellitus. Serum or plasma potassium me asurement (moles/volume)Ordered By: Raul Quan on 02-05-2022 Potassium [Moles/Vol] 4.6 mmol/L 3.5-5.1 [facility] Serum or plasma sodium measu rement (moles/volume)Ordered By: Raul Quan on 02-05-2022 Sodium [Moles/Vol] 135 mmol/L 136-146 [facility] Serum or plasma total carbon dioxide measurement (moles/volume)Ordered By: Raul Quan on 02-05-2022 CO2 [Moles/Vol] 28.2 mmol/L 22.0-30.0 [facility] Serum or plasma urea nitroge n measurement (mass/volume)Ordered By: Raul Quan on 02-05-2022 Urea nitrogen [Mass/Vol] 11 mg/dL 11-28 [facility] WBC Auto (Bld) [#/Vol]Ordere d By: Raul Quan on 02-05-2022 WBC (Bld) [#/Vol] 10.3 10*3/uL 4.1-10.5 [facility] Antibody Identificationon Antibody Identification COLD Normal [facility] Basic Metabolic Panelon 01-08 Anion gap [Moles/Vol] 13.9 mmol/L Normal 6.0-15.0 [facility] Comment on above: Performed By: #### C BC, BMP #### [facility] [address] [place] [address] [place] Calcium [Mass/Vol] 9.0 mg/dL Normal 8.2-10.2 [facility] Comment on above: Performed By: #### C BC, BMP #### [facility] [address] [place] [address] [place] Chloride [Moles/Vol] 101 mmol/L Normal 95-114 [facility] Comment on above: Performed By: #### C BC, BMP #### [facility] [address] [place] [address] [place] CO2 [Moles/Vol] 24.4 mmol/L Normal 22.0-30.0 [facility] Comment on above: Performed By: #### C BC, BMP #### [facility] [address] [place] [address] [place] Creatinine [Mass/Vol] 0.81 mg/dL Normal 0.64-1.27 [facility] Comment on above: Performed By: #### C BC, BMP #### [facility] [address] [place] [address] [place] Creatinine Clr Calc Pharmacy 66.73 [facility] Comment on above: Result Comment: PERF ORMED BY: [place] [address] PATHOLOGIST [employer] ZENA CASTELLON M.D. Performed By: #### C BC, BMP #### [address] Estimated GFR ( Jojo > 60 [facility] Comment on above: Result Comment: GFR estimated reference range: According to KDOQI guidelines, <60 ml/min/1.73m2 is sufficient to diagnose a patient with chronic kidney disease. Performed By: #### C BC, BMP #### [address] Estimated GFR (Non- Am > 60 [facility] Comment on above: Performed By: #### C BC, BMP #### [address] Glucose [Mass/Vol] 124 mg/dL High 70-100 [facility] Comment on above: Result Comment: [place] Glucose Reference Range is dependent on time and content of last meal. Glucose of more than 200 mg/dL in a nonstressed, ambulatory subject supports the diagnosis of Diabetes Mellitus. ADA recommended reference range Performed By: #### C BC, BMP #### [address] Potassium [Moles/Vol] 4.3 mmol/L Normal 3.5-5.1 [facility] Comment on above: Performed By: #### C BC, BMP #### [place] [address] [place] Sodium [Moles/Vol] 135 mmol/L Low 136-146 [facility] Comment on above: Performed By: #### C BC, BMP #### [address] Urea nitrogen [Mass/Vol] 14 mg/dL Normal 9-23 [facility] Comment on above: Performed By: #### C BC, BMP #### [address] Blood Bank Pathologist Manny oneill 02-04-2022 Blood Bank Pathologist Review Sent to Pathology Normal [facility] Comment on above: Result Comment: PERF ORMED BY: [place] [address] PATHOLOGIST [employer] ZENA CASTELLON M.D. Complete Blood Count Auto Di ffon 02-04-2022 Basophils (Bld) [#/Vol] 0.1 10*3/uL Normal 0.0-0.2 [facility] Comment on above: Result Comment: PERF ORMED BY: [place] [address] PATHOLOGIST [employer] ZENA CASTELLON M.D. Performed By: #### C BC #### [address] Basophils/100 WBC (Bld) 0.6 % Normal . [facility] Comment on above: Performed By: #### C BC #### [address] Eosinophils (Bld) [#/Vol] 0.1 10*3/uL Normal 0.0-0.45 [facility] Comment on above: Performed By: #### C BC #### [address] Eosinophils/100 WBC (Bld) 0.9 % Normal . [facility] Comment on above: Performed By: #### C BC #### [address] Erythrocyte distribution width (RBC) [Ratio] 13.7 % Normal 12.0-14.8 [facility] Comment on above: Performed By: #### C BC #### [address] Hematocrit (Bld) [Volume fraction] 37.5 % Low 38.8-50.0 [facility] Comment on above: Performed By: #### C BC #### [facility] [address] Hemoglobin (Bld) [Mass/Vol] 12.4 g/dL Low 13.0-17.0 [facility] Comment on above: Performed By: #### C BC #### [facility] [address] Lymphocytes (Bld) [#/Vol] 1.5 10*3/uL Normal 1.00-4.8 [facility] Comment on above: Performed By: #### C BC #### [address] Lymphocytes/100 WBC (Bld) 16.4 % Normal . [facility] Comment on above: Performed By: #### C BC #### [address] MCH (RBC) [Entitic mass] 30.2 pg Normal 27.5-35.2 [facility] Comment on above: Performed By: #### C BC #### [address] MCV (RBC) [Entitic vol] 91.5 fL Normal 83.5-101 [facility] Comment on above: Performed By: #### C BC #### [address] Mean Corpuscular HGB Conc 33.0 g/dL Normal 32.5-35.6 [facility] Comment on above: Performed By: #### C BC #### [place] [address] [place] Monocytes (Bld) [#/Vol] 1.1 10*3/uL High 0.0-0.8 [facility] Comment on above: Performed By: #### C BC #### [address] Monocytes/100 WBC (Bld) 12.0 % Normal . [facility] Comment on above: Performed By: #### C BC #### [place] [id number] [place] Neutrophils (Bld) [#/Vol] 6.5 10*3/uL Normal 1.8-7.7 [facility] Comment on above: Performed By: #### C BC #### [address] Neutrophils/100 WBC (Bld) 70.1 % Normal . [facility] Comment on above: Performed By: #### C BC #### [address] NRBC% 0.0 /100{WBC} Normal 0-0.5 [facility] Comment on above: Performed By: #### C BC #### [address] Platelet mean volume (Bld) [Entitic vol] 8.5 fL Normal 6.6-10.1 [facility] Comment on above: Performed By: #### C BC #### [address] Platelets (Bld) [#/Vol] 198 10*3/uL Normal 150-450 [facility] Comment on above: Performed By: #### C BC #### [address] RBC (Bld) [#/Vol] 4.10 10*6/uL Normal 3.90-5.60 [facility] Comment on above: Performed By: #### C BC #### [address] WBC (Bld) [#/Vol] 9.3 10*3/uL Normal 4.1-10.5 [facility] Comment on above: Performed By: #### C BC #### [address] Direct [place] 02-04-2022 Polyspecific AHG Negative Normal [facility] [place] 02-04-2022 L ------ Specimen: [id number] Received: 02/04/22 Status: JUSTINA Lory Num: [id number] Spec Type: Impression Subm Dr: Rocio Mac DO Tissues: PATHBBK Procedures: PATHREVIEW Age/ Patient Sex Location Account Attending Physician Chico Baker 81/M 4N [id number] Raul Quan MD SPEC NUM: [id number] RECD: 02/04/22 STATUS: JUSTINA LORY NUM: [id number] SHYANN: 02/04/22- SUBM DR: oRcio Mac DO ENTERED: 02/04/[address]: SPEC TYPE: Impression DEPT: MO ORDERED: PATHREVIEW ORDERED: [facility] Blood Bank Results Date Time Test Result Flag (u) Normal Range 02/04/22824 Ab Screen POSITIVE AB ID 02/04/22824 Cold Ab Pathologist Review A cold antibody with no apparent specificity was detectable in the serum at 22C and colder. Due to the low temperature agglutination characteristics, these antibodies are considered clinically insignificant. Specimen: [id number] Received: 02/04/22 Status: JUSTINA Lory Num: [id number] Spec Type: Impression Subm Dr: Rocio Mac DO Tissues: PATHNELLIE Procedures: PATHREVIEW Patient: Chico Baker [id number] (Continued) Signed (signature on file) Judah Alvarado MD 02/04/22 1458 Normal [facility] Type and Screenon 02-04-2022 ABO and Rh group Nom (Bld) Blood group A Rh(D) positive Normal [facility] Comment on above: Result Comment: PERF ORMED BY: [place] [address] PATHOLOGIST [employer] MAK[employer] ZENA CASTELLON M.D. Covid-19 PCR ([facility])on 01-07 SARS-CoV-2 (COVID-19) RNA JESSIE+probe Ql (Unsp spec) Not detected Normal NOT DETECTED [facility] Comment on above: Result Comment: This test is not yet approved or cleared by the [place] FDA. When there are no FDA-approved or cleared tests available, and other criteria are met, FDA can make tests available under an emergency access mechanism called an Emergency Use Authorization (EUA). The EUA for this test is supported by the [place] Inspector of Health and Human Service's (HHS's) declaration [...] consistent with SARS-CoV-2. Performed By: #### [facility] #### [facility] [address] [place] [address] [address] Jodi Oglesby US carotid doppler BIon 01-06 US carotid doppler BI [facility] [address] [place] [address] [place] [address] Ultrasound Report Signed Patient: Chico Baker MR#: [id number] : 1940 Acct:[id number] Age/Sex: 81 / M ADM Date: 01/20/22 Loc: [facility] Room: Type: [facility] Attending Dr: Tamar Perea TOP TRIMMER-C Ordering Provider: Tamar Perea APRN Date of [...] Raul Quan M.D.01/20/2022 11:32 AM Dictation Location: [place] [address] Tech: Aby Mueller Transcribed By: [facility] 01/20/221131 Dictated By: Raul Quan MD 01/20/221129 Signed By: 01/20/22 113 [facility] CBC AUTO DIFFon 12-08-2021 BASO # 0.1 103/ul Normal 0.0-0.1 [facility] Comment on above: Performed By: #### D ATA1C #### [facility] [address] [place] [address] Dr. Jodi Oglesby Basophils/100 WBC (Bld) 0.5 % Normal 0.2-2.0 [facility] Comment on above: Performed By: #### D ATA1C #### [facility] [address] [place] [address] [address] Jodi Oglesby EO # 0.1 103/ul Normal 0.0-0.7 [facility] Comment on above: Performed By: #### D ATA1C #### [facility] [address] [place] [address] [address] Jodi Oglesby Eosinophils/100 WBC (Bld) 1.4 % Normal 0.9-7.0 [facility] Comment on above: Performed By: #### D ATA1C #### [facility] [address] [place] [address] [address] Jodi Oglesby Erythrocyte distribution width (RBC) [Ratio] 13.0 % Normal 11.0-15.0 [facility] Comment on above: Performed By: #### D ATA1C #### [facility] [address] [place] [address] [address] Jodi Oglesby Hematocrit (Bld) [Volume fraction] 36.1 % Critically low 42.0-54.0 [facility] Comment on above: Performed By: #### D ATA1C #### [facility] [address] [place] [address] Dr. Jodi Oglesby Hemoglobin (Bld) [Mass/Vol] 11.2 g/dL Critically low 14.0-18.0 [facility] Comment on above: Performed By: #### D ATA1C #### [facility] [address] [place] [address] Dr. Jodi Oglesby IG # 0.04 10e3/ul Critically high 0.00-0.03 [facility] Comment on above: Performed By: #### D ATA1C #### [facility] [address] [place] [address] Dr. Jodi Oglesby IG % 0.4 % Normal 0.0-0.5 [facility] Comment on above: Performed By: #### D ATA1C #### [facility] [address] [place] [address] Dr. Jodi Oglesby LYMPH # 1.8 103/ul Normal 1.2-3.8 [facility] Comment on above: Performed By: #### D ATA1C #### [facility] [address] [place] [address] Dr. Jodi Oglesby Lymphocytes/100 WBC (Bld) 17.2 % Critically low 20.5-60.0 [facility] Comment on above: Performed By: #### D ATA1C #### [facility] [address] [place] [address] Dr. Jodi Oglesby MANUAL DIFF REQ NO Normal [facility] Comment on above: Performed By: #### D ATA1C #### [facility] [address] [place] [address] Dr. Jodi Oglesby MCH (RBC) [Entitic mass] 30.4 pg Normal 25.9-34.0 [facility] Comment on above: Performed By: #### D ATA1C #### [facility] [address] [place] [address] Dr. Jodi Oglesby MCHC (RBC) [Mass/Vol] 31.0 g/dL Normal 29.9-35.2 [facility] Comment on above: Performed By: #### D ATA1C #### [facility] [address] [place] [address] Dr. Jodi Oglesby MCV (RBC) [Entitic vol] 98.1 fL Critically high 80.0-94.0 [facility] Comment on above: Performed By: #### D ATA1C #### [facility] [address] [place] [address] Dr. Jodi Oglesby MONO # 1.0 103/ul Critically high 0.3-0.8 [facility] Comment on above: Performed By: #### D ATA1C #### [facility] [address] [place] [address] Dr. Jodi Oglesby Monocytes/100 WBC (Bld) 9.8 % Normal 1.7-12.0 [facility] Comment on above: Performed By: #### D ATA1C #### [facility] [address] [place] [address] Dr. Jodi Oglesby NEUT # 7.3 103/ul Critically high 1.4-6.5 [facility] Comment on above: Performed By: #### Chvaez ATA1C #### [facility] [address] [place] [address] Dr. Jodi Oglesby Neutrophils/100 WBC (Bld) 70.7 % Normal 43.0-75.0 [facility] Comment on above: Performed By: #### Chavez ATA1C #### [facility] [address] [place] [address] Dr. Jodi Oglesby Platelet mean volume (Bld) [Entitic vol] 9.1 fL Critically low 9.5-13.5 [facility] Comment on above: Performed By: #### Chvaez ATA1C #### [facility] [address] [place] [address] Dr. Jodi Oglesby PLT 214 103/ul Normal 150-450 [facility] Comment on above: Performed By: #### Chavez ATA1C #### [facility] [address] [place] [address] Dr. Jodi Oglesby RBC 3.68 106/ul Critically low 4.70-6.10 [facility] Comment on above: Performed By: #### Cahvez ATA1C #### [facility] [facility] [address] [place] [address] Dr. Jodi Oglesby WBC 10.3 103/ul Normal 4.0-11.0 [facility] Comment on above: Performed By: #### D ATA1C #### [facility] [address] [place] [address] Dr. Jodi Oglesby PROF CHEM 8 (BAS METB)on Anion gap [Moles/Vol] 9.7 mmol/L Normal [facility] Comment on above: Performed By: #### C BC #### [facility] [address] [place] [address] Dr. Jodi Oglesby Calcium [Mass/Vol] 8.9 mg/dL Normal 8.5-10.1 [facility] Comment on above: Performed By: #### C BC #### [facility] [address] [place] [address] Dr. Jodi Oglesby Chloride [Moles/Vol] 102 mmol/L Normal 98-107 [facility] Comment on above: Performed By: #### C BC #### [facility] [address] [place] [address] Dr. Jodi Oglesby CO2 [Moles/Vol] 31.0 mmol/L Normal 21.0-32.0 [facility] Comment on above: Performed By: #### C BC #### [facility] [address] [place] [address] Dr. Jodi Oglesby Creatinine [Mass/Vol] 0.85 mg/dL Normal 0.70-1.30 [facility] Comment on above: Performed By: #### C BC #### [facility] [address] [place] [address] Dr. Jodi Oglesby EGFR-AF BHUTANESE >60 Normal >=60 [facility] Comment on above: Performed By: #### C BC #### [facility] [address] [place] [address] Dr. Jodi Oglesby EGFR-NON AF BHUTANESE >60 Normal >=60 [facility] Comment on above: Performed By: #### C BC #### [facility] [address] [place] [address] Dr. Jodi Oglesby Glucose [Mass/Vol] 106 mg/dL Normal 74-106 [facility] Comment on above: Performed By: #### C BC #### [facility] [address] [address] [address] Jodi Oglesby Potassium [Moles/Vol] 4.7 mmol/L Normal 3.5-5.1 [facility] Comment on above: Performed By: #### C BC #### [facility] [address] [address] [address] Jodi Oglesby Sodium [Moles/Vol] 138 mmol/L Normal 136-145 [facility] Comment on above: Performed By: #### C BC #### [facility] [address] [address] [address] Jodi Oglesby Urea nitrogen [Mass/Vol] 14.0 mg/dL Normal 7.0-18.0 [facility] Comment on above: Performed By: #### C BC #### [facility] [address] [place] [address] Dr. Jodi Oglesby Urea nitrogen/Creatinine [Mass ratio] 16.5 mg/mg Normal [facility] Comment on above: Performed By: #### C BC #### [facility] [address] [place] [address] Dr. Jodi Oglesby XR CHEST 2 Von [...] ROCIO RICARDO Date: 2021-12-08 16:20 Normal [facility] Covid-19 PCR (CVDTBH)on 11-07 SARS-CoV-2 (COVID-19) RNA JESSIE+probe Ql (Unsp spec) Not detected Normal NOT DETECTED [facility] Comment on above: Result Comment: This test is not yet approved or cleared by the [place] FDA. When there are no FDA-approved or cleared tests available, and other criteria are met, FDA can make tests available under an emergency access mechanism called an Emergency Use Authorization (EUA). The EUA for this test is supported by the [place] of Health and Human Service's (HHS's) declaration [...] SARS-CoV-2. Performed By: #### C VDTB #### [facility] [address] [place] [address] Dr. Jodi Oglesby CBC AUTO DIFFon 11-11-2021 BASO # 0.1 103/ul Normal 0.0-0.1 [facility] Comment on above: Performed By: #### C BC #### [facility] [address] [place] [address] Dr. Jodi Oglesby Basophils/100 WBC (Bld) 0.5 % Normal 0.2-2.0 [facility] Comment on above: Performed By: #### C BC #### [facility] [address] [place] [address] Dr. Jodi Oglesby EO # 0.2 103/ul Normal 0.0-0.7 [facility] Comment on above: Performed By: #### C BC #### [facility] [address] [place] [address] Dr. Jodi Oglesby Eosinophils/100 WBC (Bld) 1.9 % Normal 0.9-7.0 [facility] Comment on above: Performed By: #### C BC #### [facility] [address] [place] [address] Dr. Jodi Oglesby Erythrocyte distribution width (RBC) [Ratio] 13.6 % Normal 11.0-15.0 [facility] Comment on above: Performed By: #### C BC #### [facility] [address] [place] [address] Dr. Jodi Oglesby Hematocrit (Bld) [Volume fraction] 28.6 % Critically low 42.0-54.0 [facility] Comment on above: Performed By: #### C BC #### [facility] [address] [place] [address] Dr. Jodi Oglesby Hemoglobin (Bld) [Mass/Vol] 9.4 g/dL Critically low 14.0-18.0 [facility] Comment on above: Performed By: #### C BC #### [facility] [address] [place] [address] Dr. Jodi Oglesby IG # 0.08 10e3/ul Critically high 0.00-0.03 [facility] Comment on above: Performed By: #### C BC #### [facility] [address] [place] [address] Dr. Jodi Oglesby IG % 0.8 % Critically high 0.0-0.5 [facility] Comment on above: Performed By: #### C BC #### [facility] [address] [place] [address] Dr. Jodi Oglesby LYMPH # 1.3 103/ul Normal 1.2-3.8 [facility] Comment on above: Performed By: #### C BC #### [facility] [address] [place] [address] Dr. Jodi Oglesby Lymphocytes/100 WBC (Bld) 13.0 % Critically low 20.5-60.0 [facility] Comment on above: Performed By: #### C BC #### [facility] [address] [place] [address] Dr. Jodi Oglesby MANUAL DIFF REQ NO Normal [facility] Comment on above: Performed By: #### C BC #### [facility] [address] [place] [address] Dr. Jodi Oglesby MCH (RBC) [Entitic mass] 31.5 pg Normal 25.9-34.0 [facility] Comment on above: Performed By: #### C BC #### [facility] [address] [address] [address] Jodi Oglesby MCHC (RBC) [Mass/Vol] 32.9 g/dL Normal 29.9-35.2 [facility] Comment on above: Performed By: #### C BC #### [facility] [address] [address] [address] Jodi Oglesby MCV (RBC) [Entitic vol] 96.0 fL Critically high 80.0-94.0 [facility] Comment on above: Performed By: #### C BC #### [facility] [address] [address] [address] Jodi Oglesby MONO # 1.1 103/ul Critically high 0.3-0.8 [facility] Comment on above: Performed By: #### C BC #### [facility] [address] [place] [address] Dr. Jodi Oglesby Monocytes/100 WBC (Bld) 10.7 % Normal 1.7-12.0 [facility] Comment on above: Performed By: #### C BC #### [facility] [address] [address] [address] Jodi Oglesby NEUT # 7.4 103/ul Critically high 1.4-6.5 [facility] Comment on above: Performed By: #### C BC #### [facility] [address] [address] [address] Jodi Oglesby Neutrophils/100 WBC (Bld) 73.1 % Normal 43.0-75.0 [facility] Comment on above: Performed By: #### C BC #### [facility] [address] [address] [address] Jodi Oglesby Platelet mean volume (Bld) [Entitic vol] 9.3 fL Critically low 9.5-13.5 [facility] Comment on above: Performed By: #### C BC #### [facility] [address] [address] [address] Jodi Oglesby PLT 288 103/ul Normal 150-450 [facility] Comment on above: Performed By: #### C BC #### [facility] [address] [place], [place] [address] Dr. Jodi Oglesby RBC 2.98 106/ul Critically low 4.70-6.10 [facility] Comment on above: Performed By: #### C BC #### [facility] [address] [place], [place] [address] Dr. Jodi Oglesby WBC 10.1 103/ul Normal 4.0-11.0 [facility] Comment on above: Performed By: #### C BC #### [facility] [address] [place], [place] [address] ABD/PELVIS WO CONon [...] TAYO CASTILLO Date: 2021-11-11 03:10 Normal [facility] Covid-19 PCR (CVDTBH)on SARS-CoV-2 (COVID-19) RNA JESSIE+probe Ql (Unsp spec) Not detected Normal NOT DETECTED [facility] Comment on above: Result Comment: When [...] for this test is supported by the [place] Inspector of Health and Human Service's declaration that [...] used). Performed By: #### C BC #### [facility] [address] [place] [address] Dr. Jodi Oglesby OCC BLD IMMUNO SCREENon OCCULT BLOOD Negative Normal NEGATIVE [facility] Comment on above: Performed By: #### D ATA1C #### [facility] [address] [place] [address] Dr. Jodi Oglesby PROF 14(COMP METB)on 022 Albumin [Mass/Vol] 3.0 g/dL Critically low 3.4-5.0 [facility] Comment on above: Performed By: #### C MP #### [facility] [address] [place] [address] Dr. Jodi Oglesby Albumin/Globulin [Mass ratio] 0.8 {ratio} Normal [facility] Comment on above: Performed By: #### C MP #### [facility] [address] [place] [address] Dr. Jodi Oglesby ALP [Catalytic activity/Vol] 126 U/L Critically high 46-116 [facility] Comment on above: Performed By: #### C MP #### [facility] [address] [place] [address] Dr. Jodi Oglesby ALT [Catalytic activity/Vol] 22 U/L Normal 16-63 [facility] Comment on above: Performed By: #### C MP #### [facility] [address] [place] [address] Dr. Jodi Oglesby Anion gap [Moles/Vol] 16.7 mmol/L Normal [facility] Comment on above: Performed By: #### C MP #### [facility] [address] [place] [address] Dr. Jodi Oglesby AST [Catalytic activity/Vol] 23 U/L Normal 15-37 [facility] Comment on above: Performed By: #### C MP #### [facility] [address] [address] [address] Jodi Oglesby Bilirubin [Mass/Vol] 0.6 mg/dL Normal 0.2-1.0 [facility] Comment on above: Performed By: #### C MP #### [facility] [address] [address] [address] Jodi Oglesby Calcium [Mass/Vol] 8.5 mg/dL Normal 8.5-10.1 [facility] Comment on above: Performed By: #### C MP #### [facility] [address] [address] [address] Jodi Oglesby Chloride [Moles/Vol] 99 mmol/L Normal 98-107 [facility] Comment on above: Performed By: #### C MP #### [facility] [address] [place] [address] Dr. Jodi Oglesby CO2 [Moles/Vol] 27.4 mmol/L Normal 21.0-32.0 [facility] Comment on above: Performed By: #### C MP #### [facility] [address] [place] [address] Dr. Jodi Oglesby Creatinine [Mass/Vol] 0.80 mg/dL Normal 0.70-1.30 [facility] Comment on above: Performed By: #### C MP #### [facility] [address] [place] [address] Dr. Jodi Oglesby EGFR-AF BHUTANESE >60 Normal >=60 [facility] Comment on above: Performed By: #### C MP #### [facility] [address] [place] [address] Dr. Jodi Oglesby EGFR-NON AF BHUTANESE >60 Normal >=60 [facility] Comment on above: Performed By: #### C MP #### [facility] [address] [place] [address] Dr. Jodi Oglesby Globulin (S) [Mass/Vol] 3.9 g/dL Normal [facility] Comment on above: Performed By: #### C MP #### [facility] [address] [place] [address] Dr. Jodi Oglesby Glucose [Mass/Vol] 116 mg/dL Critically high 74-106 [facility] Comment on above: Performed By: #### C MP #### [facility] [address] [address] [address] Jodi Oglesby Potassium [Moles/Vol] 4.1 mmol/L Normal 3.5-5.1 [facility] Comment on above: Performed By: #### C MP #### [facility] [address] [address] [address] Jodi Oglesby Protein [Mass/Vol] 6.9 g/dL Normal 6.4-8.2 [facility] Comment on above: Performed By: #### C MP #### [facility] [address] [address] [address] Jodi Oglesby Sodium [Moles/Vol] 129 mmol/L Critically low 136-145 [facility] Comment on above: Performed By: #### C MP #### [facility] [address] [address] [address] Jodi Oglesby Urea nitrogen [Mass/Vol] 15.0 mg/dL Normal 7.0-18.0 [facility] Comment on above: Performed By: #### C MP #### [facility] [address] [address] [address] Jodi Oglesby Urea nitrogen/Creatinine [Mass ratio] 18.8 mg/mg Normal [facility] Comment on above: Performed By: #### C MP #### [facility] [address] [address] [address] Jodi Oglesby PROTIMEon 11-11-2021 INR Coag (PPP) [Relative time] 1.01 {INR} Normal [facility] Comment on above: Performed By: #### P TT, PT #### [facility] [address] [address] [address] Jodi Oglesby INR GUIDELINES SEE BELOW Normal [facility] Comment on above: Result Comment: ESHA RED INR: 2.0 - 3.0 CONDITIONS NOT LISTED BELOW 2.5 - 3.5 FOR PROSTHETIC HEART VALVE REPLACEMENT 2.5 - 3.5 RECURRENT THROMBOSIS Performed By: #### P TT, PT #### [facility] [address] [place] [address] Dr. Jodi Oglesby PT Coag (PPP) [Time] 10.9 s Normal 9.0-11.6 [facility] Comment on above: Performed By: #### P TT, PT #### [facility] [address] [place] [address] Dr. Jodi Oglesby PTTon 11-11-2021 aPTT Coag (Bld) [Time] 25.4 s Normal 22.3-36.2 [facility] Comment on above: Performed By: #### P TT, PT #### [facility] [address] [place] [address] Dr. Jodi Oglesby CBC AUTO DIFFon 10-26-2021 BASO # 0.0 103/ul Normal 0.0-0.1 [facility] Comment on above: Performed By: #### D ATA1C #### [facility] [address] [place] [address] Dr. Jodi Oglesby Basophils/100 WBC (Bld) 0.3 % Normal 0.2-2.0 [facility] Comment on above: Performed By: #### D ATA1C #### [facility] [address] [place] [address] Dr. Jodi Oglesby EO # 0.1 103/ul Normal 0.0-0.7 [facility] Comment on above: Performed By: #### D ATA1C #### [facility] [address] [place] [address] Dr. Jodi Oglesby Eosinophils/100 WBC (Bld) 0.5 % Critically low 0.9-7.0 [facility] Comment on above: Performed By: #### D ATA1C #### [facility] [address] [place] [address] Dr. Jodi Oglesby Erythrocyte distribution width (RBC) [Ratio] 12.4 % Normal 11.0-15.0 [facility] Comment on above: Performed By: #### D ATA1C #### [facility] [address] [place] [address] Dr. Jodi Oglesby Hematocrit (Bld) [Volume fraction] 39.5 % Critically low 42.0-54.0 [facility] Comment on above: Performed By: #### D ATA1C #### [facility] [address] [place] [address] Dr. Jodi Oglesby Hemoglobin (Bld) [Mass/Vol] 12.8 g/dL Critically low 14.0-18.0 [facility] Comment on above: Performed By: #### D ATA1C #### [facility] [address] [place] [address] Dr. Jodi Oglesby IG # 0.07 10e3/ul Critically high 0.00-0.03 [facility] Comment on above: Performed By: #### D ATA1C #### [facility] [address] [place] [address] Dr. Jodi Oglesby IG % 0.5 % Normal 0.0-0.5 [facility] Comment on above: Performed By: #### D ATA1C #### [facility] [address] [place] [address] Dr. Jodi Oglesby LYMPH # 0.9 103/ul Critically low 1.2-3.8 [facility] Comment on above: Performed By: #### D ATA1C #### [facility] [address] [place] [address] Dr. Jodi Oglesby Lymphocytes/100 WBC (Bld) 6.3 % Critically low 20.5-60.0 [facility] Comment on above: Performed By: #### D ATA1C #### [facility] [address] [place] [address] Dr. Jodi Oglesby MANUAL DIFF REQ NO Normal [facility] Comment on above: Performed By: #### D ATA1C #### [facility] [address] [place] [address] Dr. Jodi Oglesby MCH (RBC) [Entitic mass] 30.8 pg Normal 25.9-34.0 [facility] Comment on above: Performed By: #### D ATA1C #### [facility] [address] [place] [address] Dr. Jodi Oglesby MCHC (RBC) [Mass/Vol] 32.4 g/dL Normal 29.9-35.2 [facility] Comment on above: Performed By: #### D ATA1C #### [facility] [address] [address] [address] Jodi Oglesby MCV (RBC) [Entitic vol] 95.2 fL Critically high 80.0-94.0 [facility] Comment on above: Performed By: #### D ATA1C #### [facility] [address] [address] [address] Jodi Oglesby MONO # 0.9 103/ul Critically high 0.3-0.8 [facility] Comment on above: Performed By: #### D ATA1C #### [facility] [address] [place] [address] Dr. Jodi Oglesby Monocytes/100 WBC (Bld) 6.2 % Normal 1.7-12.0 [facility] Comment on above: Performed By: #### D ATA1C #### [facility] [address] [place] [address] Dr. Jodi Oglesby NEUT # 12.8 103/ul Critically high 1.4-6.5 [facility] Comment on above: Performed By: #### D ATA1C #### [facility] [address] [place] [address] Dr. Jodi Oglesby Neutrophils/100 WBC (Bld) 86.2 % Critically high 43.0-75.0 [facility] Comment on above: Performed By: #### D ATA1C #### [facility] [address] [place] [address] Dr. Jodi Oglesby Platelet mean volume (Bld) [Entitic vol] 9.4 fL Critically low 9.5-13.5 [facility] Comment on above: Performed By: #### D ATA1C #### [facility] [address] [place] [address] Dr. Jodi Oglesby PLT 169 103/ul Normal 150-450 [facility] Comment on above: Performed By: #### D ATA1C #### [facility] [address] [place] [address] Dr. Jodi Oglesby RBC 4.15 106/ul Critically low 4.70-6.10 [facility] Comment on above: Performed By: #### D ATA1C #### [facility] [address] [place], [place] [address] Dr. Jodi Oglesby WBC 14.8 103/ul Critically high 4.0-11.0 [facility] Comment on above: Performed By: #### D ATA1C #### [facility] [id number] Jodi Oglesby CT CHEST WO CONon [...] NICOLE SIMMS Date: 2021-10-26 17:38 Normal [facility] Covid-19 PCR (CVDTBH)on 10-07 SARS-CoV-2 (COVID-19) RNA JESSIE+probe Ql (Unsp spec) Not detected Normal NOT DETECTED [facility] Comment on above: Result Comment: When [...] for this test is supported by the [place] Inspector of Health and Human Service's declaration that [...] used). Performed By: #### D ATA1C #### [facility] [address] [place] [address] Dr. Jodi Oglesby PROF CHEM 8 (BAS METB)on Anion gap [Moles/Vol] 11.7 mmol/L Normal [facility] Comment on above: Performed By: #### C BC #### [facility] [address] [place] [address] Dr. Jodi Oglesby Calcium [Mass/Vol] 9.2 mg/dL Normal 8.5-10.1 [facility] Comment on above: Performed By: #### C BC #### [facility] [address] [place] [address] Dr. Jodi Oglesby Chloride [Moles/Vol] 101 mmol/L Normal 98-107 [facility] Comment on above: Performed By: #### C BC #### [facility] [address] [place] [address] Dr. Jodi Oglesby CO2 [Moles/Vol] 27.6 mmol/L Normal 21.0-32.0 [facility] Comment on above: Performed By: #### C BC #### [facility] [address] [place] [address] Dr. Jodi Oglesby Creatinine [Mass/Vol] 0.98 mg/dL Normal 0.70-1.30 [facility] Comment on above: Performed By: #### C BC #### [facility] [address] [place] [address] Dr. Jodi Oglesby EGFR-AF BHUTANESE >60 Normal >=60 [facility] Comment on above: Performed By: #### C BC #### [facility] [address] [place] [address] Dr. Jodi Oglesby EGFR-NON AF BHUTANESE >60 Normal >=60 [facility] Comment on above: Performed By: #### C BC #### [facility] [address] [place] [address] Dr. Jodi Oglesby Glucose [Mass/Vol] 119 mg/dL Critically high 74-106 T [facility] Comment on above: Performed By: #### C BC #### [facility] [address] [place] [address] Dr. Jodi Oglesby Potassium [Moles/Vol] 4.3 mmol/L Normal 3.5-5.1 [facility] Comment on above: Performed By: #### C BC #### [facility] [address] [place] [address] Dr. Jodi Oglesby Sodium [Moles/Vol] 136 mmol/L Normal 136-145 [facility] Comment on above: Performed By: #### C BC #### [facility] [address] [place] [address] Dr. Jodi Oglesby Urea nitrogen [Mass/Vol] 15.0 mg/dL Normal 7.0-18.0 [facility] Comment on above: Performed By: #### C BC #### [facility] [address] [place] [address] Dr. Jodi Oglesby Urea nitrogen/Creatinine [Mass ratio] 15.3 mg/mg Normal [facility] Comment on above: Performed By: #### C BC #### [facility] [address] [place] [address] Dr. Jodi Oglesby XR CLAVICLE RTon 10-26-2021 [...] by: ABY ALDANA Date: 2021-10-26 15:37 Normal [facility] XR ELBOW RT MIN 3 VIEWSon [...] DEL CHAKRABORTY Date: 2021-10-26 17:23 Normal [facility] XR HIP RT 2 3V W [...] by: CHARLES ALEJANDRA Date: 2021-10-26 15:[address] [facility] CARDIAC STRESS/REST INJE CTIONon 10-21-2021 [facility] CARDIAC STRESS/REST INJECTION Patient Name: CHICO BAKER STUDY: MYOCARDIAL PERFUSION STRESS TEST WITH LEXISCAN Performing facility: [facility], [address] [place] [address], [address], [place] [address] [facility] Provider: Adilene Harrington MD, FACC PCP: Dr. Jori Dunham Supervising provider: Adilene Harrington MD, FACC INDICATION: AAA Pre-operative risk assessment for AAA [place] [facility] [place] HISTORY: Gender: M; Age: 81 y/o ; Height: 0 cm; Weight: 0 kg. HTN; Carotid disease PAD AAA Denies smoking. COMPARISON: Previous nuclear testing completed [id number] at [place]. Previous echo testing completed on 2020 at [facility] ACCESSION NUMBER(S): [id number]; [id number]; [id number] ORDERING CLINICIAN: JUDAH HARRINGTON TECHNIQUE: ONE DAY [...] Electronically signed by: ALL HUDSON MD Normal [facility] No Panel Informationon 10-21 Normal -[facility] [address] [place] Work Phone: COVID-19 Positive/NegativeOr dered By: Raul Quan on 10-13-2021 SARS-CoV-2 (COVID-19) N gene JESSIE+probe Ql (Resp) Negative Negative [facility] Comment on above: Testing for SARS-CoV -2 by RT-PCR This test was developed and its performance characteristics determined by [employer]) and validated at the [facility]. This test has not been FDA [...] 10-06-2021 Basophils (Bld) [#/Vol] 0.0 10*3/uL 0.0-0.2 [facility] Basophils/100 WBC Auto (Bld) Ordered By: Raul Quan on 10-06-2021 Basophils/100 WBC (Bld) 0.7 % . [facility] Blood hemoglobin measurement (mass/volume)Ordered By: Raul Quan on 10-06-2021 Hemoglobin (Bld) [Mass/Vol] 13.1 g/dL 13.0-17.0 [facility] Blood leukocytes automated c ount (number/volume)Ordered By: Raul Quan on 10-06-2021 WBC (Bld) [#/Vol] 5.2 10*3/uL 4.5-11.0 [facility] Creatinine and Glomerular fi ltration rate.predicted panel (S/P/Bld)Ordered By: Raul Quan on 10-06-2021 Creatinine [Mass/Vol] 0.98 mg/dL 0.64-1.27 [facility] Eosinophils Auto (Bld) [#/Vo l]Ordered By: Raul Quan on 10-06-2021 Eosinophils (Bld) [#/Vol] 0.1 10*3/uL 0.0-0.45 [facility] Eosinophils/100 WBC Auto (Bl d)Ordered By: Raul Quan on 10-06-2021 Eosinophils/100 WBC (Bld) 1.3 % . [facility] Erythrocyte distribution wid th Auto (RBC) [Ratio]Ordered By: Raul Quan on 10-06-2021 Erythrocyte distribution width (RBC) [Ratio] 13.3 % 12.0-14.8 [facility] Estimated glomerular filtrat ion rate (GFR) non- AmericanOrdered By: Raul Quan on 10-06-2021 GFR/1.73 sq M.predicted among non-blacks MDRD (S/P/Bld) [Vol rate/Area] > 60 mL/Min [facility] Hematocrit Auto (Bld) [Volum e fraction]Ordered By: Raul Quan on 10-06-2021 Hematocrit (Bld) [Volume fraction] 40.4 % 38.8-50.0 [facility] Laboratory - Hematology and Cell countsOrdered By: Raul Quan on 10-06-2021 Nucleated RBC/100 WBC (Bld) [Ratio] 0.0 % 0-0.5 [facility] Lymphocytes Auto (Bld) [#/Vo l]Ordered By: Raul Quan on 10-06-2021 Lymphocytes (Bld) [#/Vol] 1.0 10*3/uL 1.00-4.8 [facility] Lymphocytes/100 WBC Auto (Bl d)Ordered By: Raul Quan on 10-06-2021 Lymphocytes/100 WBC (Bld) 18.4 % . [facility] MCH Auto (RBC) [Entitic mass ]Ordered By: Raul Quan on 10-06-2021 MCH (RBC) [Entitic mass] 30.9 pg 27.5-35.2 [facility] MCHC Auto (RBC) [Mass/Vol]Or dered By: Raul Quan on 10-06-2021 MCHC (RBC) [Mass/Vol] 32.5 g/dL 32.5-35.6 [facility] MCV Auto (RBC) [Entitic vol] Ordered By: Raul Quan on 10-06-2021 MCV (RBC) [Entitic vol] 95.2 fL 83.5-101 [facility] Monocytes Auto (Bld) [#/Vol] Ordered By: Raul Quan on 10-06-2021 Monocytes (Bld) [#/Vol] 0.6 10*3/uL 0.0-0.8 [facility] Monocytes/100 WBC Auto (Bld) Ordered By: Raul Quan on 10-06-2021 Monocytes/100 WBC (Bld) 12.0 % . [facility] Neutrophils Auto (Bld) [#/Vo l]Ordered By: Raul Quan on 10-06-2021 Neutrophils (Bld) [#/Vol] 3.5 10*3/uL 1.8-7.7 [facility] Neutrophils/100 WBC Auto (Bl d)Ordered By: Raul Quan on 10-06-2021 Neutrophils/100 WBC (Bld) 67.6 % . [facility] No Panel InformationOrdered By: Raul Quan on 10-06-2021 Estimated GFR () > 60 mL/Min [facility] Comment on above: GFR estimated refere nce range: According to KDOQI guidelines, <60 ml/min/1.73m2 is sufficient to diagnose a patient with chronic kidney disease. Pharmacy Creatinine Clearance (Chem N/A [facility] Platelet mean volume Auto (B ld) [Entitic vol]Ordered By: Raul Quan on 10-06-2021 Platelet mean volume (Bld) [Entitic vol] 8.1 fL 6.6-10.1 [facility] Platelets Auto (Bld) [#/Vol] Ordered By: Raul Quan on 10-06-2021 Platelets (Bld) [#/Vol] 185 10*3/uL 150-450 [facility] RBC Auto (Bld) [#/Vol]Ordere d By: Raul Quan on 10-06-2021 RBC (Bld) [#/Vol] 4.25 10*6/uL 3.90-5.60 [facility] Serum or plasma calcium richy urement (mass/volume)Ordered By: Raul Quan on 10-06-2021 Calcium [Mass/Vol] 9.0 mg/dL 8.2-10.2 [facility] Serum or plasma chloride young surement (moles/volume)Ordered By: Raul Quan on 10-06-2021 Chloride [Moles/Vol] 101 mmol/L 95-114 [facility] Serum or plasma glucose richy urement (mass/volume)Ordered By: Raul Quan on 10-06-2021 Glucose [Mass/Vol] 187 mg/dL 70-100 [facility] Comment on above: ADA recommended refe rence range Random Glucose Reference Range is dependent on time and content of last meal. Glucose of more than 200 mg/dL in a nonstressed, ambulatory subject supports the diagnosis of Diabetes Mellitus. Serum or plasma potassium me asurement (moles/volume)Ordered By: Raul Quan on 10-06-2021 Potassium [Moles/Vol] 4.0 mmol/L 3.5-5.1 [facility] Serum or plasma sodium measu rement (moles/volume)Ordered By: Raul Quan on 10-06-2021 Sodium [Moles/Vol] 135 mmol/L 136-146 [facility] Serum or plasma total carbon dioxide measurement (moles/volume)Ordered By: Raul Quan on 10-06-2021 CO2 [Moles/Vol] 25.1 mmol/L 22.0-30.0 [facility] Serum or plasma urea nitroge n measurement (mass/volume)Ordered By: Raul Quan on 10-06-2021 Urea nitrogen [Mass/Vol] 13 mg/dL 9 [facility] CBC AUTO DIFFon 09-22-2021 BASO # 0.0 103/ul Normal 0.0-0.1 [facility] Comment on above: Performed By: #### C BC #### [facility] [address] [address] [address] Jodi Oglesby Basophils/100 WBC (Bld) 0.3 % Normal 0.2-2.0 [facility] Comment on above: Performed By: #### C BC #### [facility] [address] [place] [address] Dr. Jodi Oglesby EO # 0.1 103/ul Normal 0.0-0.7 [facility] Comment on above: Performed By: #### C BC #### [facility] [address] [address] [address] Jodi Oglesby Eosinophils/100 WBC (Bld) 0.8 % Critically low 0.9-7.0 [facility] Comment on above: Performed By: #### C BC #### [facility] [address] [place] [address] Dr. Jodi Oglesby Erythrocyte distribution width (RBC) [Ratio] 12.5 % Normal 11.0-15.0 [facility] Comment on above: Performed By: #### C BC #### [facility] [address] [place] [address] Dr. Jodi Oglesby Hematocrit (Bld) [Volume fraction] 43.6 % Normal 42.0-54.0 [facility] Comment on above: Performed By: #### C BC #### [facility] [address] [place] [address] Dr. Jodi Oglesby Hemoglobin (Bld) [Mass/Vol] 14.1 g/dL Normal 14.0-18.0 [facility] Comment on above: Performed By: #### C BC #### [facility] [address] [place] [address] Dr. Jodi Oglesby IG # 0.03 10e3/ul Normal 0.00-0.03 [facility] Comment on above: Performed By: #### C BC #### [facility] [address] [place] [address] Dr. Jodi Oglesby IG % 0.3 % Normal 0.0-0.5 [facility] Comment on above: Performed By: #### C BC #### [facility] [address] [place] [address] Dr. Jodi Oglesby LYMPH # 1.5 103/ul Normal 1.2-3.8 [facility] Comment on above: Performed By: #### C BC #### [facility] [address] [place] [address] Dr. Jodi Oglesby Lymphocytes/100 WBC (Bld) 17.2 % Critically low 20.5-60.0 [facility] Comment on above: Performed By: #### C BC #### [facility] [address] [place] [address] Dr. Jodi Oglesby MANUAL DIFF REQ NO Normal [facility] Comment on above: Performed By: #### C BC #### [facility] [address] [place] [address] Dr. Jodi Oglesby MCH (RBC) [Entitic mass] 31.1 pg Normal 25.9-34.0 [facility] Comment on above: Performed By: #### C BC #### [facility] [address] [place] [address] Dr. Jodi Oglesby MCHC (RBC) [Mass/Vol] 32.3 g/dL Normal 29.9-35.2 [facility] Comment on above: Performed By: #### C BC #### [facility] [address] [place] [address] Dr. Jodi Oglesby MCV (RBC) [Entitic vol] 96.0 fL Critically high 80.0-94.0 [facility] Comment on above: Performed By: #### C BC #### [facility] [address] [place] [address] Dr. Jodi Oglesby MONO # 1.0 103/ul Critically high 0.3-0.8 [facility] Comment on above: Performed By: #### C BC #### [facility] [address] [address] [address] Jodi Oglesby Monocytes/100 WBC (Bld) 10.8 % Normal 1.7-12.0 [facility] Comment on above: Performed By: #### C BC #### [facility] [address] [address] [address] Jodi Oglesby NEUT # 6.2 103/ul Normal 1.4-6.5 [facility] Comment on above: Performed By: #### C BC #### [facility] [address] [place] [address] Dr. Jodi Oglesby Neutrophils/100 WBC (Bld) 70.6 % Normal 43.0-75.0 [facility] Comment on above: Performed By: #### C BC #### [facility] [address] [place] [address] Dr. Jodi Oglesby Platelet mean volume (Bld) [Entitic vol] 9.6 fL Normal 9.5-13.5 [facility] Comment on above: Performed By: #### C BC #### [facility] [address] [place] [address] Dr. Jodi Oglesby PLT 206 103/ul Normal 150-450 [facility] Comment on above: Performed By: #### C BC #### [facility] [address] [place] [address] Dr. Jodi Oglesby RBC 4.54 106/ul Critically low 4.70-6.10 [facility] Comment on above: Performed By: #### C BC #### [facility] [address] [place] [address] Dr. Jodi Oglesby WBC 8.8 103/ul Normal 4.0-11.0 [facility] Comment on above: Performed By: #### C BC #### [facility] [address] [place] [address] Dr. Jodi Oglesby PROF CHEM 8 (BAS METB)on Anion gap [Moles/Vol] 9.5 mmol/L Normal [facility] Comment on above: Performed By: #### B MP #### [facility] [address] [address] [address] Jodi Oglesby Calcium [Mass/Vol] 9.4 mg/dL Normal 8.5-10.1 [facility] Comment on above: Performed By: #### B MP #### [facility] [address] [address] [address] Jodi Oglesby Chloride [Moles/Vol] 100 mmol/L Normal 98-107 [facility] Comment on above: Performed By: #### B MP #### [facility] [address] [address] [address] Jodi Oglseby CO2 [Moles/Vol] 33.2 mmol/L Critically high 21.0-32.0 [facility] Comment on above: Performed By: #### B MP #### [facility] [address] [place] [address] Dr. Jodi Oglesby Creatinine [Mass/Vol] 0.99 mg/dL Normal 0.70-1.30 [facility] Comment on above: Performed By: #### B MP #### [facility] [address] [address] [address] Jodi Oglesby EGFR-AF BHUTANESE >60 Normal >=60 [facility] Comment on above: Performed By: #### B MP #### [facility] [address] [address] [address] Jodi Oglesby EGFR-NON AF BHUTANESE >60 Normal >=60 [facility] Comment on above: Performed By: #### B MP #### [facility] [address] [address] [address] Jodi Oglesby Glucose [Mass/Vol] 109 mg/dL Critically high 74-106 [facility] Comment on above: Performed By: #### B MP #### [facility] [address] [address] [address] Jodi Oglesby Potassium [Moles/Vol] 4.7 mmol/L Normal 3.5-5.1 [facility] Comment on above: Performed By: #### B MP #### [facility] [address] [address] [address] Jodi Oglesby Sodium [Moles/Vol] 138 mmol/L Normal 136-145 [facility] Comment on above: Performed By: #### B MP #### [facility] [address] [address] [address] Jodi Oglesby Urea nitrogen [Mass/Vol] 17.0 mg/dL Normal 7.0-18.0 [facility] Comment on above: Performed By: #### B MP #### [facility] [address] [address] [address] Jodi Oglesby Urea nitrogen/Creatinine [Mass ratio] 17.2 mg/mg Normal [facility] Comment on above: Performed By: #### B MP #### [facility] [address] [place] [address] Dr. Jodi Oglesby Creatinine (Bld) [Mass/Vol]O rdered By: Tamar Perea on 09-18-2021 Creatinine [Mass/Vol] 0.8 mg/dL 0.6-1.3 [facility] Comment on above: ER/ESD physician is notified/shown all ISTAT results. Critical values may be confirmed by laboratory testing if deemed necessary by ER attending doctor. No Panel InformationOrdered By: Tamar Perea on 09-18-2021 POC Estimated GFR > 60 [facility] Comment on above: GFR estimated refere nce range: According to KDOQI guidelines, <60 ml/min/1.73m2 is sufficient to diagnose a patient with chronic kidney disease. POC Estimated GFR Non- Amer > 60 [facility] CBC AUTO DIFFon 08-12-2021 BASO # 0.0 103/ul Normal 0.0-0.1 [facility] Comment on above: Performed By: #### C BC #### [facility] [address] [place] [address] Dr. Jodi Oglesby Basophils/100 WBC (Bld) 0.3 % Normal 0.2-2.0 [facility] Comment on above: Performed By: #### C BC #### [facility] [address] [place] [address] Dr. Jodi Oglesby EO # 0.1 103/ul Normal 0.0-0.7 [facility] Comment on above: Performed By: #### C BC #### [facility] [address] [place] [address] Dr. Jodi Oglesby Eosinophils/100 WBC (Bld) 1.8 % Normal 0.9-7.0 [facility] Comment on above: Performed By: #### C BC #### [facility] [address] [place] [address] Dr. Jodi Oglesby Erythrocyte distribution width (RBC) [Ratio] 12.6 % Normal 11.0-15.0 [facility] Comment on above: Performed By: #### C BC #### [facility] [address] [place] [address] Dr. Jodi Oglesby Hematocrit (Bld) [Volume fraction] 40.9 % Critically low 42.0-54.0 [facility] Comment on above: Performed By: #### C BC #### [facility] [address] [place] [address] Dr. Jodi Oglesby Hemoglobin (Bld) [Mass/Vol] 13.4 g/dL Critically low 14.0-18.0 [facility] Comment on above: Performed By: #### C BC #### [facility] [address] [place] [address] Dr. Jodi Oglesby IG # 0.03 10e3/ul Normal 0.00-0.03 [facility] Comment on above: Performed By: #### C BC #### [facility] [address] [place] [address] Dr. Jodi Oglesby IG % 0.4 % Normal 0.0-0.5 [facility] Comment on above: Performed By: #### C BC #### [facility] [address] [place] [address] Dr. Jodi Oglesby LYMPH # 1.4 103/ul Normal 1.2-3.8 [facility] Comment on above: Performed By: #### C BC #### [facility] [address] [place] [address] Dr. Jodi Oglesby Lymphocytes/100 WBC (Bld) 18.6 % Critically low 20.5-60.0 [facility] Comment on above: Performed By: #### C BC #### [facility] [address] [place] [address] Dr. Jodi Oglesby MCH (RBC) [Entitic mass] 31.5 pg Normal 25.9-34.0 [facility] Comment on above: Performed By: #### C BC #### [facility] [address] [place] [address] Dr. Jodi Oglesby MCHC (RBC) [Mass/Vol] 32.8 g/dL Normal 29.9-35.2 [facility] Comment on above: Performed By: #### C BC #### [facility] [address] [place] [address] Dr. Jodi Oglesby MCV (RBC) [Entitic vol] 96.0 fL Critically high 80.0-94.0 [facility] Comment on above: Performed By: #### C BC #### [facility] [address] [place] [address] Dr. Jodi Oglesby MONO # 0.7 103/ul Normal 0.3-0.8 [facility] Comment on above: Performed By: #### C BC #### [facility] [address] [place] [address] Dr. Jodi Oglesby Monocytes/100 WBC (Bld) 9.7 % Normal 1.7-12.0 [facility] Comment on above: Performed By: #### C BC #### [facility] [address] [place] [address] Dr. Jodi Oglesby NEUT # 5.1 103/ul Normal 1.4-6.5 [facility] Comment on above: Performed By: #### C BC #### [facility] [address] [place] [address] Dr. Jodi Oglesby Neutrophils/100 WBC (Bld) 69.2 % Normal 43.0-75.0 [facility] Comment on above: Performed By: #### C BC #### [facility] [address] [place] [address] Dr. Jodi Oglesby Platelet mean volume (Bld) [Entitic vol] 9.8 fL Normal 9.5-13.5 [facility] Comment on above: Performed By: #### C BC #### [facility] [address] [place] [address] Dr. Jodi Oglesby PLT 195 103/ul Normal 150-450 [facility] Comment on above: Performed By: #### C BC #### [facility] [address] [place] [address] Dr. Jodi Oglesby RBC 4.26 106/ul Critically low 4.70-6.10 [facility] Comment on above: Performed By: #### C BC #### [facility] [address] [place] [address] Dr. Jodi Oglesby WBC 7.4 103/ul Normal 4.0-11.0 [facility] Comment on above: Performed By: #### C BC #### [facility] [address] [place] [address] Dr. Jodi Oglesby ASHLEY - TSHon 08-12-2021 TSH 1.879 uIU/mL Normal 0.358-3.740 [facility] Comment on above: Performed By: #### D LULU DATBMP #### [facility] [address] [place] [address] Dr. Jodi Oglesby TSH RANGE SEE BELOW Normal [facility] Comment on above: Result Comment: <0.3 4 UIU/ml HYPERTHYROID 0.34-5.60 UIU/ml EUTHYROID >5.60 UIU/ml HYPOTHYROID Performed By: #### D ATTSH DATBMP #### [facility] [address] [place] [address] Dr. Jodi Oglesby ASHLEY- BMP WITH LIPIDon 2021 Anion gap [Moles/Vol] 11.4 mmol/L Normal [facility] Comment on above: Performed By: #### D ATTSH, DATBMP #### [facility] [address] [place] [address] Dr. Jodi Oglesby Calcium [Mass/Vol] 8.7 mg/dL Normal 8.5-10.1 [facility] Comment on above: Performed By: #### D ATTSH, DATBMP #### [facility] [address] [address] [address] Jodi Oglesby Chloride [Moles/Vol] 105 mmol/L Normal 98-107 [facility] Comment on above: Performed By: #### D ATTSH, DATBMP #### [facility] [address] [address] [address] Jodi Oglesby Cholesterol [Mass/Vol] 113 mg/dL Normal <=200 [facility] Comment on above: Performed By: #### D ATTSH, DATBMP #### [facility] [address] [address] [address] Jodi Oglesby Cholesterol in HDL [Mass/Vol] 47 mg/dL Normal 40-60 [facility] Comment on above: Performed By: #### D ATTSH, DATBMP #### [facility] [address] [place] [address] Dr. Jodi Oglesby Cholesterol in LDL [Mass/Vol] 58.0 mg/dL Normal [facility] Comment on above: Performed By: #### D ATTSH, DATBMP #### [facility] [address] [place] [address] Dr. Jodi Oglesby CO2 [Moles/Vol] 29.0 mmol/L Normal 21.0-32.0 [facility] Comment on above: Performed By: #### D ATTSH, DATBMP #### [facility] [address] [place] [address] Dr. Jodi Oglesby Creatinine [Mass/Vol] 0.99 mg/dL Normal 0.70-1.30 [facility] Comment on above: Performed By: #### D ATTSH, DATBMP #### [facility] [address] [place] [address] Dr. Jodi Oglesby EGFR-AF BHUTANESE >60 Normal >=60 [facility] Comment on above: Performed By: #### D ATTSH, DATBMP #### [facility] [address] [place] [address] Dr. Jodi Oglesby EGFR-NON AF BHUTANESE >60 Normal >=60 [facility] Comment on above: Performed By: #### D ATTSH, DATBMP #### [facility] [address] [address] [address] Jodi Oglesby Glucose [Mass/Vol] 116 mg/dL Critically high 74-106 [facility] Comment on above: Performed By: #### D ATTSH, DATBMP #### [facility] [address] [address] [address] Jodi Ogelsby HDL NORMAL > or = 60 mg/dl - LO W CARDIOVASCULAR RISK <40 mg/dl - HIGH CARDIOVASCULAR RISK Normal [facility] Comment on above: Performed By: #### D ATTKENDELL, DATBMP #### [facility] [address] [address] [address] Jodi Oglesby LDL CALC NORMAL SEE BELOW Normal [facility] Comment on above: Result Comment: <100 mg/dl OPTIMAL 100 - 129 mg/dl NEAR OR ABOVE OPTIMAL 130 - 159 mg/dl BORDERLINE HIGH 160 - 189 mg/dl HIGH >190 mg/dl VERY HIGH Performed By: #### D ATTSH, DATBMP #### [facility] [address] [address] [address] Jodi Oglesby Potassium [Moles/Vol] 4.4 mmol/L Normal 3.5-5.1 [facility] Comment on above: Performed By: #### D ATTSH, DATBMP #### [facility] [address] [address] [address] Jodi Oglesby Sodium [Moles/Vol] 141 mmol/L Normal 136-145 [facility] Comment on above: Performed By: #### D ATTSH, DATBMP #### [facility] [address] [address] [address] Jodi Oglesby Triglyceride [Mass/Vol] 40 mg/dL Normal <=150 [facility] Comment on above: Performed By: #### D ATTSH, DATBMP #### [facility] [address] [address] [address] Jodi Oglesby Urea nitrogen [Mass/Vol] 16.0 mg/dL Normal 7.0-18.0 [facility] Comment on above: Performed By: #### D ATTKENDELL, DATBMP #### [facility] [address] [address] [address] Jodi Oglesby Urea nitrogen/Creatinine [Mass ratio] 16.2 mg/mg Normal [facility] Comment on above: Performed By: #### D ATTKENDELL, DATBMP #### [facility] [address] [address] [address] Jodi Oglesby VLDL CALC 8.0 mg/dL Normal [facility] Comment on above: Performed By: #### D LULU, DATBMP #### [facility] [address] [address] [address] Jodi Oglesby GLYCOHEMOGLOBIN A1Con 2021 ADA RECOMMENDATION SEE BELOW Normal [facility] Comment on above: Result Comment: ADA RECOMMENDED LIMIT 4.0 - 6.0 ADA THERAPEUTIC TARGET < 7.0 ACTION SUGGESTED > 7.0 Performed By: #### D ATA1C #### [facility] [address] [address] [address] Jodi Oglesby Glucose [Mass/Vol] 131 mg/dL Normal [facility] Comment on above: Performed By: #### D ATA1C #### [facility] [address] [address] [address] Jodi Oglesby HbA1c (Bld) [Mass fraction] 6.2 % Normal 4.5-6.2 [facility] Comment on above: Performed By: #### D ATA1C #### [facility] [address] [address] [address] Jodi Oglesby CNOVon 12-11-2020 CNOV Office Visit (VASSMD ) -- CHICO BAKER ([id number]) 1940 Date Time Provider Department 12/11/20 10:45 AM POWER CATHERINE During your visit today, we recorded the following information about you: Pulse Blood pressure Weight Height 60/minute 122/78 67.6 kg 1.702 m Power Catherine MD 12/11/2020 11:17 AM Signed [facility] OUTPATIENT VISIT DATE December 11, 2020 OUTPATIENT VISIT TYPE EST PRIMARY CARE PHYSICIAN: Shailesh Dunham ([facility]) [address] [place] [address] REFERRING PHYSICIAN Power Catherine [address] [facility] [address] CHIEF COMPLAINT: Patient presents with: Established Patient [...] Power Catherine MD Referring Provider: POWER CATHERINE [[id number]] Allergies As of Date: 12/11/2020 Noted Allergy Reaction SHALINI INHIBITORS 05/09/2015 16 - Unknown GADOLINIUM-CONTAINING CONTRAST ME*05/09/2015 16 - Unknown TETANUS VACCINES AND TOXOID 05/16/2015 16 - Unknown Date Reviewed: 12/11/2020 Reviewed by: Harika Menjivar - Fully Assessed Reason for Visit: Established Patient [175] Follow Up [171] Primary Visit Diagnosis: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 - nitroglycerin sublingual (NITROQUICK) 0.3 mg SL tablet (more content not included)... Normal [facility] 10-30-2020 CNPN Telephone (VASSMD) -- CHICO BAKER ([id number]) 1940 M Date Time Provider Department 10/30/20 POWER CATHERINE During your visit today, we recorded the following information about you: Sheri Oropeza Pss 10/30/2020 4:49 PM Signed Patient called to schedule his annual apt with dr. Catherine. He said he usually gets testing done first. Please place order. thanks Harika Menjivar 10/31/2020 8:18 AM Signed Order in for physician to co-sign Thank you Sheri Oropeza Pss 11/04/2020 4:04 PM Signed Spoke to patient [...] [I71.4] Order(s):US ABD AORTA COMPLETE [facility] [[id number]] Order #: [id number] FUTURE Prescriptions as of 11/04/2020 - aspirin, [...] Status:Closed by SHERI MOLINA on 11/04/20 Normal [facility] Vital Signs Date Time Vital Sign Value Performing Clinician Facility 03-29-2023 10:00-0500 Body height 170.18 cm [facility] Other [facility] Other 03-29-2023 10:00-0500 Body mass index (BMI) [Ratio] 21.8 kg/m2 [facility] Other [facility] Other 03-29-2023 10:00-0500 Body weight 63.14 kg [facility] Other [facility] Other 03-29-2023 10:00-0500 Diastolic blood pressure 74 mm[Hg] [facility] Other [facility] Other 03-29-2023 10:00-0500 Respiratory rate 12 /min [facility] Other [facility] Other 03-29-2023 10:00-0500 Systolic blood pressure 132 mm[Hg] [facility] Other [facility] Other 01-13-2023 08:49-0500 Blood Pressure Location Ivelisse Lue [facility] 01-13-2023 08:49-0500 Diastolic blood pressure 74 mm[Hg] Ivelisse Lue [facility] 01-13-2023 08:49-0500 Heart rate 68 /min Ivelisse Lue [facility] 01-13-2023 08:49-0500 Respiratory rate 16 /min Ivelisse Lue [facility] 01-13-2023 08:49-0500 Systolic blood pressure 156 mm[Hg] Ivelisse Lue [facility] 11-10-2022 10:30-0400 Body height 170.18 cm Raul Quan Other [employer] [facility] [employer] Other 11-10-2022 10:30-0400 Body mass index (BMI) [Ratio] 20.99 kg/m2 Raul Quan Other [facility] Other 11-10-2022 10:30-0400 Body temperature 97.8 [degF] Raul Quan Other [facility] Other 11-10-2022 10:30-0400 Body weight 60.78 kg Raul Quan Other [facility] Other 11-10-2022 10:30-0400 Diastolic blood pressure 64 mm[Hg] Raul Quan Other [facility] Other 11-10-2022 10:30-0400 SaO2% (BldA) [Mass fraction] 98 % Raul Quan Other [facility] Other 11-10-2022 10:30-0400 Systolic blood pressure 110 mm[Hg] Raul Quan Other [facility] Other 10-07-2022 08:49-0400 Blood Pressure Location Ivelisse Lue [facility] 10-07-2022 08:49-0400 Diastolic blood pressure 74 mm[Hg] Ivelisse Lue [facility] 10-07-2022 08:49-0400 Heart rate 75 /min Ivelisse Lue [facility] 10-07-2022 08:49-0400 Systolic blood pressure 139 mm[Hg] Ivelisse Lue [facility] 08-04-2022 11:15-0400 Body height 170.18 cm Raul Quan Other [facility] Other 08-04-2022 11:15-0400 Body mass index (BMI) [Ratio] 21.77 kg/m2 Raul Quan Other [facility] Other 08-04-2022 11:15-0400 Body temperature 97.8 [degF] Raul Quan Other [facility] Other 08-04-2022 11:15-0400 Body weight 63.05 kg Raul Quan Other [facility] Other 08-04-2022 11:15-0400 Diastolic blood pressure 68 mm[Hg] Raul Quan Other [facility] Other 08-04-2022 11:15-0400 SaO2% (BldA) [Mass fraction] 97 % Raul Quan Other [facility] Other 08-04-2022 11:15-0400 Systolic blood pressure 108 mm[Hg] Raul Quan Other [facility] [employer] Other 07-09-2022 08:00-0400 Body temperature 98.6 [degF] DO Shailesh Ball Work Phone: [facility] 07-09-2022 08:00-0400 Diastolic blood pressure 72 mm[Hg] DO Shailesh Ball Work Phone: [facility] 07-09-2022 08:00-0400 Heart rate 69 /min DO Shailesh Ball Work Phone: [facility] 07-09-2022 08:00-0400 Respiratory rate 16 /min DO Shailesh Ball Work Phone: [facility] 07-09-2022 08:00-0400 SaO2% (BldA) [Mass fraction] 97 % DO Shailesh Ball Work Phone: [facility] 07-09-2022 08:00-0400 Systolic blood pressure 154 mm[Hg] DO Shailesh Ball Work Phone: [facility] 07-09-2022 06:00-0400 Body weight 65.8 kg DO Shailesh Ball Work Phone: [facility] 07-08-2022 10:52-0400 Inhaled oxygen flow rate 8 L/min DO Shailesh Ball Work Phone: [facility] 07-08-2022 08:34-0400 Body height 167.64 cm DO Shailesh Ball Work Phone: [facility] 07-08-2022 08:34-0400 Body mass index (BMI) [Ratio] 22.7 kg/m2 DO Shailesh Ball Work Phone: [facility] 06-24-2022 09:27-0400 Blood Pressure Location Ivelisse Hassan [facility] 06-24-2022 09:27-0400 Diastolic blood pressure 75 mm[Hg] Ivelisse Hassan [facility] 06-24-2022 09:27-0400 Heart rate 66 /min Ivelisse Lue [facility] 06-24-2022 09:27-0400 Respiratory rate 16 /min Ivelisse Lue [facility] 06-24-2022 09:27-0400 Systolic blood pressure 120 mm[Hg] Ivelisse Lue [facility] 05-21-2022 09:30-0400 Body height 170.18 cm Shailesh Ball Other [facility] [employer] Other 05-21-2022 09:30-0400 Body mass index (BMI) [Ratio] 21.8 kg/m2 Shailesh Ball Other [facility] [employer] Other 05-21-2022 09:30-0400 Body weight 63.14 kg Shailesh Ball Other [facility] [employer] Other 05-21-2022 09:30-0400 Diastolic blood pressure 73 mm[Hg] Shailesh Ball Other [facility] [employer] Other 05-21-2022 09:30-0400 Respiratory rate 12 /min Shailesh Ball Other [facility] [employer] Other 05-21-2022 09:30-0400 Systolic blood pressure 121 mm[Hg] Shailesh Ball Other [employer] Other 05-19-2022 11:00-0400 Body height 170.18 cm Tamar Perea Other [facility] Other 05-19-2022 11:00-0400 Body mass index (BMI) [Ratio] 22.02 kg/m2 Tamar Perea Other [facility] Other 05-19-2022 11:00-0400 Body temperature 97.5 [degF] Tamar Perea Other [facility] Other 05-19-2022 11:00-0400 Body weight 63.78 kg Tamar Perea Other [facility] Other 05-19-2022 11:00-0400 Diastolic blood pressure 76 mm[Hg] Tamar Perea Other [facility] Other 05-19-2022 11:00-0400 SaO2% (BldA) [Mass fraction] 98 % Tamar Perea Other [facility] Other 05-19-2022 11:00-0400 Systolic blood pressure 148 mm[Hg] Tamar Perea Other [facility] Other 04-15-2022 08:57-0500 Blood Pressure Location Ivelisse Lue [facility] 04-15-2022 08:57-0500 Diastolic blood pressure 78 mm[Hg] Ivelisse Lue [facility] 04-15-2022 08:57-0500 Heart rate 68 /min Ivelisse Lue [facility] 04-15-2022 08:57-0500 Respiratory rate 16 /min Ivelisse Lue [facility] 04-15-2022 08:57-0500 Systolic blood pressure 122 mm[Hg] Ivelisse Lue [facility] 03-10-2022 11:30-0500 Body height 170.18 cm Raul Quan Other [facility] Other 03-10-2022 11:30-0500 Body mass index (BMI) [Ratio] 21.2 kg/m2 Raul Quan Other [facility] Other 03-10-2022 11:30-0500 Body temperature 97.8 [degF] Raul Quan Other [facility] Other 03-10-2022 11:30-0500 Body weight 61.42 kg Raul Quan Other [facility] Other 03-10-2022 11:30-0500 Diastolic blood pressure 64 mm[Hg] Raul Quan Other [facility] Other 03-10-2022 11:30-0500 SaO2% (BldA) [Mass fraction] 98 % Raul Quan Other [facility] Other 03-10-2022 11:30-0500 Systolic blood pressure 108 mm[Hg] Raul Quan Other [facility] Other 02-25-2022 11:09-0500 Blood Pressure Location IVA ANTOINE [facility] 02-25-2022 11:09-0500 Diastolic blood pressure 63 mm[Hg] IVA ANTOINE [facility] 02-25-2022 11:09-0500 Heart rate 64 /min IVA ARASH [facility] 02-25-2022 11:09-0500 Systolic blood pressure 105 mm[Hg] IVA ARASH [facility] 02-18-2022 14:12-0500 Blood Pressure Location IVA ARASH [facility] 02-18-2022 14:12-0500 Diastolic blood pressure 83 mm[Hg] IVA ARASH [facility] 02-18-2022 14:12-0500 Heart rate 70 /min IVA ARASH [facility] 02-18-2022 14:12-0500 Systolic blood pressure 142 mm[Hg] IVA ARASH [facility] 02-11-2022 08:42-0500 Blood Pressure Location Ivelisse Lue [facility] 02-11-2022 08:42-0500 Diastolic blood pressure 73 mm[Hg] Ivelisse Lue [facility] 02-11-2022 08:42-0500 Heart rate 68 /min Ivelisse Lue [facility] 02-11-2022 08:42-0500 Respiratory rate 16 /min Ivelisse Lue [facility] 02-11-2022 08:42-0500 Systolic blood pressure 150 mm[Hg] Ivelisse Lue [facility] 02-05-2022 08:00-0500 Body temperature 99.1 [degF] DO Shailesh Ball Work Phone: [facility] 02-05-2022 08:00-0500 Diastolic blood pressure 76 mm[Hg] DO Shailesh Ball Work Phone: [facility] 02-05-2022 08:00-0500 Heart rate 78 /min DO Shailesh Ball Work Phone: [facility] 02-05-2022 08:00-0500 Respiratory rate 16 /min DO Shaliesh Ball Work Phone: [facility] 02-05-2022 08:00-0500 SaO2% (BldA) [Mass fraction] 95 % DO Shailesh Ball Work Phone: [facility] 02-05-2022 08:00-0500 Systolic blood pressure 168 mm[Hg] DO Shailesh Ball Work Phone: [facility] 02-05-2022 03:21-0500 Body weight 64.1 kg DO Shailesh Ball Work Phone: [facility] 02-04-2022 11:43-0500 Inhaled oxygen flow rate 6 L/min DO Shailesh Ball Work Phone: [facility] 02-04-2022 09:31-0500 Body height 167.64 cm DO Shailesh Ball Work Phone: [facility] 02-04-2022 09:31-0500 Body mass index (BMI) [Ratio] 23.3 kg/m2 DO Shailesh Ball Work Phone: [facility] 01-20-2022 12:30-0500 Body height 170.18 cm Raul Quan Other [facility] Other 01-20-2022 12:30-0500 Body mass index (BMI) [Ratio] 21.92 kg/m2 Raul Quan Other [facility] Other 01-20-2022 12:30-0500 Body temperature 97.7 [degF] Raul Buehrer Other [facility] Other 01-20-2022 12:30-0500 Body weight 63.5 kg Raul Buehrer Other [facility] Other 01-20-2022 12:30-0500 Diastolic blood pressure 64 mm[Hg] Raul Buehrer Other [facility] Other 01-20-2022 12:30-0500 SaO2% (BldA) [Mass fraction] 99 % Raul Buehrer Other [facility] Other 01-20-2022 12:30-0500 Systolic blood pressure 116 mm[Hg] Raul Buehrer Other [facility] Other 01-05-2022 11:15-0400 Body height 170.18 cm Raul Buehrer Other [facility] Other 01-05-2022 11:15-0400 Body mass index (BMI) [Ratio] 21.92 kg/m2 Raul Buehrer Other [facility] Other 01-05-2022 11:15-0400 Body temperature 96 [degF] Raul Buehrer Other [facility] Other 01-05-2022 11:15-0400 Body weight 63.5 kg Raul Buehrer Other [facility] Other 01-05-2022 11:15-0400 Diastolic blood pressure 58 mm[Hg] Raul Buehrer Other [facility] Other 01-05-2022 11:15-0400 SaO2% (BldA) [Mass fraction] 99 % Raul Lawrencemary ann Other [facility] Other 01-05-2022 11:15-0400 Systolic blood pressure 100 mm[Hg] Raul Stanislawchantellmary ann Other [facility] Other 11-24-2021 12:30-0400 Body height 170.18 cm Tamar Martinezmoy Other [facility] Other 11-24-2021 12:30-0400 Body mass index (BMI) [Ratio] 21.92 kg/m2 Tamar Martinezmoy Other [facility] Other 11-24-2021 12:30-0400 Body temperature 97.5 [degF] Tamar Perea Other [facility] Other 11-24-2021 12:30-0400 Body weight 63.5 kg Tamar Martinezjerardokhalida Other [facility] Other 11-24-2021 12:30-0400 Diastolic blood pressure 50 mm[Hg] Tamar Brit Other [facility] Other 11-24-2021 12:30-0400 SaO2% (BldA) [Mass fraction] 98 % Tamar Martinezmoy Other [facility] Other 11-24-2021 12:30-0400 Systolic blood pressure 96 mm[Hg] Tamar Zhuo Other [facility] Other 10-21-2021 07:30-0400 50 1 Shailesh E Ball Work Phone: [facility] [address] [place] Work Phone: Comment on above: [id number] 10-15-2021 08:27-0400 Body height 167.64 cm DO Shailesh Ball Work Phone: [facility] 10-15-2021 08:27-0400 Body temperature 97.7 [degF] DO Shailesh Ball Work Phone: [facility] 10-15-2021 08:27-0400 Body weight 66 kg DO Shailesh Ball Work Phone: [facility] 10-15-2021 08:27-0400 Diastolic blood pressure 75 mm[Hg] DO Shailesh Ball Work Phone: [facility] 10-15-2021 08:27-0400 Heart rate 73 /min DO Shailesh Ball Work Phone: [facility] 10-15-2021 08:27-0400 Respiratory rate 16 /min DO Shailesh Ball Work Phone: [facility] 10-15-2021 08:27-0400 SaO2% (BldA) [Mass fraction] 97 % DO Shailesh Ball Work Phone: [facility] 10-15-2021 08:27-0400 Systolic blood pressure 143 mm[Hg] DO Shailesh Ball Work Phone: [facility] 09-30-2021 13:30-0400 Body height 170.18 cm Tamar Perea Other [facility] [employer] Other 09-30-2021 13:30-0400 Body mass index (BMI) [Ratio] 24.27 kg/m2 Tamar Perea Other [facility] [employer] Other 09-30-2021 13:30-0400 Body temperature 97.4 [degF] Tamar Perea Other [facility] Other 09-30-2021 13:30-0400 Body weight 70.31 kg Tamar Perea Other [facility] Other 09-30-2021 13:30-0400 Diastolic blood pressure 70 mm[Hg] Tamar Perea Other [facility] Other 09-30-2021 13:30-0400 SaO2% (BldA) [Mass fraction] 98 % Tamar Perea Other [facility] Other 09-30-2021 13:30-0400 Systolic blood pressure 140 mm[Hg] Tamar Perea Other [facility] Other 09-15-2021 11:00-0400 Body height 170.18 cm Tamar Perea Other [facility] Other 09-15-2021 11:00-0400 Body mass index (BMI) [Ratio] 24.27 kg/m2 Tamar Perea Other [facility] Other 09-15-2021 11:00-0400 Body temperature 96.4 [degF] Tamar Perea Other [facility] Other 09-15-2021 11:00-0400 Body weight 70.31 kg Tamar Perea Other [facility] Other 09-15-2021 11:00-0400 Diastolic blood pressure 72 mm[Hg] Tamar Zhuo Other [facility] Other 09-15-2021 11:00-0400 SaO2% (BldA) [Mass fraction] 98 % Tamar Perea Other [facility] Other 09-15-2021 11:00-0400 Systolic blood pressure 138 mm[Hg] Tamar Perea Other [facility] Other 07-28-2021 10:45-0400 Body height 170.18 cm Raul Quan Other [facility] Other 07-28-2021 10:45-0400 Body mass index (BMI) [Ratio] 24.27 kg/m2 Raul Quan Other [facility] Other 07-28-2021 10:45-0400 Body temperature 96.6 [degF] Raul Quan Other [facility] Other 07-28-2021 10:45-0400 Body weight 70.31 kg Raul Quan Other [facility] Other 07-28-2021 10:45-0400 Diastolic blood pressure 78 mm[Hg] Raul Quan Other [facility] Other 07-28-2021 10:45-0400 SaO2% (BldA) [Mass fraction] 98 % Raul Quan Other [facility] Other 07-28-2021 10:45-0400 Systolic blood pressure 190 mm[Hg] Raul Lawrencerejakub Other [facility] Other Encounters Encounter Date Encounter Type Care Provider Facility Start: 03-29-2023 End: 03-29-2023 ambulatory Shailesh Ball Other [facility] Other Start: 03-29-2023 Transitional care ellen sarkar srvc 14 day discharge Shailesh [facility] Start: 03-25-2023 End: 03-25-2023 ambulatory Raul Melindamary ann Other [facility] Other Start: 03-25-2023 Telephone encounter Raul Quan [facility] Start: 03-24-2023 ambulatory Ivelisse Hassan Facility:C [id number] Start: 01-13-2023 End: 01-14-2023 ambulatory Ivelisse Hassan Facility:[facility] [place] Start: 01-13-2023 End: 01-13-2023 Patient encounter procedure Ivelisse ChiquitaSilvestre Hassan [facility] [employer] Start: 11-10-2022 Office outpatient vi sit 25 minutes Raul Quan [facility] Vascular Surgery Start: 11-10-2022 End: 11-10-2022 ambulatory DO Shailesh Dunham Work Phone: [facility] Other Start: 11-10-2022 End: 11-10-2022 Patient encounter procedure DO Shailesh Dunham Work Phone: [facility] Start: 10-07-2022 End: 10-08-2022 ambulatory Ivelisse ChiquitaSilvestre Hymancaleb Facility:[facility] Start: 10-07-2022 End: 10-07-2022 Patient encounter procedure Ivelisse PorrasSilvestre Mo [facility] [employer] Start: 08-04-2022 End: 08-04-2022 ambulatory Raul Doverchantellmary ann Other [facility] Other Start: 08-04-2022 Postop follow up vis it related to original px Raul Doverchantellmary ann [facility] Start: 07-28-2022 End: 07-29-2022 ambulatory Ivelisse Hassan Facility:[facility] Start: 07-14-2022 ambulatory Ivelisse Hassan Facility:C [id number] Start: 07-09-2022 End: 07-09-2022 ambulatory Shailesh Dunham Other [facility] Other Start: 07-09-2022 Telephone encounter Shailesh Dunham [facility] Start: 07-08-2022 End: 07-08-2022 ambulatory Shailesh Dunham Other [facility] Other Start: 07-08-2022 Telephone encounter Shailesh Dunham FP [facility] Start: 07-08-2022 End: 07-09-2022 Evaluation and management of inpatient Shailesh Dunham Facility:[facility] Start: 07-08-2022 End: 07-09-2022 Evaluation and management of inpatient DO Shailesh Dunham Work Phone: [facility] Work Phone: Start: 07-01-2022 End: 07-01-2022 ambulatory Shailesh Dunham Facility:[facility] Start: 07-01-2022 End: 07-01-2022 ambulatory DO Shailesh Dunham Work Phone: [facility] Work Phone: Start: 07-01-2022 End: 07-01-2022 Patient encounter procedure DO Shailesh Dunham Work Phone: [facility] Work Phone: Start: 06-24-2022 End: 06-25-2022 ambulatory Ivelisse Hassan Facility:[facility] Start: 06-24-2022 End: 06-24-2022 Patient encounter procedure Ivelisse Hassan [facility] [place] Start: 05-21-2022 End: 05-21-2022 ambulatory Shailesh Dunham Other [facility] Other Start: 05-21-2022 Patient encounter procedure Shailesh Dunham [facility] Start: 05-19-2022 End: 05-19-2022 ambulatory Tamar Perea Other [facility] Other Start: 05-19-2022 Follow-up encounter Tamar [facility] Start: 05-13-2022 End: 05-13-2022 ambulatory Raul Quan Other [facility] Other Start: 05-13-2022 Telephone encounter Raul Dovernakul [facility] Start: 05-11-2022 End: 05-11-2022 ambulatory Shailesh Dunham Facility:[facility] Start: 05-11-2022 End: 05-11-2022 ambulatory DO Shailesh Dunham Work Phone: [facility] Work Phone: Start: 05-11-2022 End: 05-11-2022 Patient encounter procedure DO Shailesh Dunham Work Phone: [facility] [place] Work Phone: Start: 04-23-2022 End: 04-23-2022 ambulatory Raul Avelina Other [facility] Other Start: 04-23-2022 Telephone encounter Raul Avelina [facility] Vascular Surgery Start: 04-15-2022 End: 04-16-2022 ambulatory Ivelisse Hassan Facility:[facility] Start: 04-15-2022 End: 04-15-2022 Lab Drop off Ivelisse Hassan [facility] Start: 04-15-2022 End: 04-16-2022 ambulatory Ivelisse Hassan Facility: [facility] Start: 04-15-2022 End: 04-15-2022 Patient encounter procedure Ivelisse Hassan [facility] Start: 04-14-2022 End: 04-14-2022 ambulatory Shailesh Dunham Other [facility] Other Start: 04-14-2022 Telephone encounter Shailesh [facility] Start: 03-10-2022 End: 03-10-2022 ambulatory Raul Quan Other [facility] Other Start: 03-10-2022 Office outpatient vi sit 25 minutes Raul Quan [facility] Vascular Surgery Start: 02-25-2022 End: 02-25-2022 Patient encounter procedure IVA ANTOINE [facility] Start: 02-18-2022 End: 02-18-2022 Patient encounter procedure IVA ANTOINE [facility] [employer] Start: 02-11-2022 End: 02-11-2022 Lab Drop off Ivelisse Hassan [facility] Start: 02-11-2022 End: 02-11-2022 Patient encounter procedure Ivelisse Hassan [facility] Start: 02-10-2022 End: 02-11-2022 ambulatory IVELISSE HASSAN . Facility: Start: 02-07-2022 Encounter for other preprocedural examination DR RAUL QUAN [facility] Start: 02-07-2022 Encounter for preprocedural laboratory examination DR RAUL QUAN [facility] Start: 02-04-2022 End: 02-05-2022 Evaluation and management of inpatient Shailesh Enrico Facility:[facility] Start: 02-04-2022 End: 02-05-2022 Evaluation and management of inpatient DO Shailesh Dunham Work Phone: [facility] Start: 02-02-2022 End: 02-03-[address] RAUL QUAN Facility:H1 Start: 02-02-2022 End: 02-03-2022 Encounter for other preprocedural examination DR RAUL QUAN Facility:[facility]1 Start: 01-20-2022 Office outpatient vi sit 25 minutes Raul Quan [facility] Vascular Surgery Start: 01-20-2022 End: 01-20-2022 ambulatory DO Shailesh Dunham Work Phone: [employer] Other Start: 01-20-2022 End: 01-20-2022 Patient encounter procedure DO Shailesh Dunham Work Phone: [facility]Ul[facility] Start: 01-05-2022 End: 01-05-2022 ambulatory Raul Quan Other [employer] Other Start: 01-05-2022 Office outpatient vi sit 25 minutes Raul Quan [facility] Vascular Surgery Start: 12-08-2021 End: 12-09-[address] SHAILESH DUNHAM Facility:[facility]1 Start: 12-02-2021 End: 12-02-[address] SHAILESH DUNHAM Facility:[facility]1 Start: 11-24-2021 End: 11-24-2021 ambulatory Tamar Perea Other [place] [employer] Other Start: 11-24-2021 Patient encounter procedure Tamar Perea [facility] Vascular Surgery Start: 11-11-2021 End: 11-11-[address] SHAILESH DUNHAM Facility:[facility]1 Start: 10-26-2021 End: 10-26-[address] SHAILESH DUNHAM Facility:[facility]1 Start: 10-21-2021 Patient encounter procedure Shailesh Dunham Work Phone: [facility] [place] Work Phone: Start: 10-16-2021 Telephone encounter Judah Vivas MD Work Phone: [facility] 250 DO Work Phone: Start: 10-15-2021 End: 10-15-2021 Evaluation and management of inpatient DO Shailesh Ball Work Phone: [facility] Start: 10-13-2021 End: 10-13-2021 Patient encounter procedure DO Shailesh Ball Work Phone: [facility] Start: 10-06-2021 End: 10-06-2021 Patient encounter procedure DO Shailesh Ball Work Phone: [facility] Start: 09-30-2021 End: 09-30-2021 ambulatory Tamar Perea Other [employer] Other Start: 09-30-2021 Encounter for other preprocedural examination Tamar STEPHENSON [facility] Start: 09-30-2021 Follow-up encounter Tamar Livingston [facility] Start: 09-22-2021 End: 09-23-[address] SHAILESH DUNHAM Facility:[facility]1 Start: 09-18-2021 End: 09-18-2021 Patient encounter procedure DO Shailesh Dunham Work Phone: [facility] [place] Start: 09-15-2021 End: 09-15-2021 ambulatory Tamar Perea Other [employer] Other Start: 09-15-2021 Follow-up encounter Tamar Livingston [facility] Start: 08-27-2021 End: 08-27-2021 Patient encounter procedure DO Shailesh Ball Work Phone: [facility] Start: 08-12-2021 End: 08-13-[address] KURTZ LISTED REQUEST Facility:[facility]1 Start: 07-28-2021 End: 07-28-2021 ambulatory Raul Quan Other [facility] [employer] Other Start: 07-28-2021 Office outpatient ne w 45 minutes Raul Quan [facility] Vascular Surgery Start: 06-13-2020 End: 06-13-2020 Patient encounter procedure Lisandra Sher Work Phone: [facility] Work Phone: Patient encounter status Judah Harrington MD Work Phone: [facility] 250 DO Work Phone: Procedures Date Procedure Procedure Detail Performing Clinician Start: 11-10-2022 Doppler ultrasonography of bilateral carotid arteries DO Shailesh Dunham Work Phone: Start: 07-28-2022 Cystourethroscopy with dilation of urethral stricture Ivelisse Hassan Start: 07-08-2022 Antibody screen Shailesh Dunham Comment on above: Result Comment: PERFORMED BY: [address] [id number] PATHOLOGIST BRANCH MAKER ZENA CASTELLON M.D. Start: 07-08-2022 Insertion of [...] on above: Performed By: #### DATA1C #### [facility] [address] [place] [address] Dr. 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 Ivelisse Hassan Start: 02-04-2022 Antibody screen Shailesh Dunham Comment on above: Result Comment: PERFORMED BY: [facility] Austin [place] [address] PATHOLOGIST BRANCH MAKER ZENA CASTELLON M.D. Start: 02-04-2022 Endovascular repair of abdominal aortic aneurysm DO [employer] Work Phone: Start: 01-20-2022 Doppler ultrasonography of bilateral carotid arteries DO [employer] Work Phone: Start: 09-18-2021 Computed tomography angiography of abdominal and/or pelvic blood vessel DO [employer] Work Phone: Start: 08-27-2021 US scan of aorta DO [employer] Work Phone: Start: 08-27-2021 Doppler ultrasonography of bilateral carotid arteries DO [employer] Work Phone: Start: 06-13-2020 Imm. administration COVID19 [employer] Work Phone: Start: 06-13-2020 SARS-CoV-2 vaccine, 0.5ml [employer] [facility] Work Phone: Start: 10-18-2019 Transurethral prostatectomy Ivelisse Lue Start: 04-06-2019 Cystoscope, device (physical object) Ivelisse Lue Start: 10-06-2016 Colonoscopy Ivelisse Lue Comment on above: 2010 Arthroscopy of knee Ivelisse Yenni e Catheterization of left heart Ivelisse Lue Esophagogastroduodenoscopy K athy Lue Plan of Treatment Date Care Activity Detail Author Start: 07-09-2022 [facility] Start: 07-08-2022 Hospital admission [facility] Start: 07-08-2022 Patient referral to dietitian [facility] Start: 02-05-2022 [facility] Start: 02-04-2022 [facility] Start: 02-04-2022 Hospital admission [facility] Start: 10-21-2021 STRESS NUC, Provider: SAL ZUNIGA NUCLEAR Sherrill,[id number], Status: Pen, Time: 7:30 AM STRESS NUC, Provider: SAL ZUNIGA NUCLEAR Sherrill,[id number], Status: Pen, Time: 7:30 AM [facility] 250 DO Work Phone: Start: 10-15-2021 [facility] Work Phone: Start: 10-15-2021 OR Percutaneous EVAR AAA (Not Applicable) OR Percutaneous EVAR AAA (Not Applicable) [facility] Start: 10-15-2021 End: 10-15-2021 Evaluation and management of inpatient AAA (abdominal aortic aneurysm) [facility] [place] [address] Surgical Start: 10-13-2021 End: 10-13-2021 Patient encounter procedure Departed Clinical [facility] Patient Education [facility] Work Phone: Patient referral [facility] Work Phone: Immunizations Immunization Date Immunization Notes Care Provider David holloway 06-13-2020 [employer]ney [employer] Rodney COVID 19 Vaccine [facility] Comment on above: Note: Patient tolera shyann well. No signs or symptoms of adverse reactions. Patient waited a minimum of 15 minutes. NEGATED: Highlighted row has not occurred!01-13-2023 influenza virus vaccine, unspecified formulation Ivelisse Mo [facility] Payers Date Payer Category Payer Unknown [id number] 1959 Self-pay [id number] 1959 Unknown [id number] 1959 Unknown [id number] 1959 Unknown [id number] 1942 Unknown [id number] 2.16.84 0.1.646833.3.579.2.593 1942 Unknown [id number] 2.16.84 0.1.787012.3.579.2.593 1942 Unknown [id number] 2.16.84 0.1.997876.3.579.2.593 1942 Unknown [id number] 2.16.84 0.1.233268.3.579.2.593 1942 Unknown [id number] 2.16.84 0.1.241990.3.579.2.593 1942 Unknown [id number] 2.16.84 0.1.979547.3.579.2.593 1942 Unknown [id number] 2.16.84 0.1.469392.3.579.2.593 1942 Unknown [id number] 2.16.8 40.1.365928.3.579.2.727 1942 Unknown [id number] 2.16.8 40.1.577644.3.579.2.727 1942 Unknown [id number] 2.16.8 40.1.992366.3.579.2.727 1942 Unknown [id number] 2.16.8 40.1.535196.3.579.2.727 1942 Unknown [id number] 2.16.8 40.1.368919.3.579.2.727 1942 Unknown [id number] 2.16.8 40.1.053675.3.579.2.727 Self-pay Self Pay [id number] Unknown Unknown [facility] [id number] Unknown [id number] 2.16.84 [id number] Social History Date Type Detail Facility Tobacco smoking status Unknown i f ever smoked [facility] Work Phone: Start: 03-08-1957 End: 03-08-1996 Sex Assigned At [facility] Start: 10-15-2021 End: 10-07-2022 Tobacco smoking status NHIS Ex-smoker (finding) [facility] Start: 1940 Sex Assigned At Male F [facility] Tobacco smoking status Never [facility] Medical Equipment Procedure Code Equipment Code Equipment Origin al Text Equipment Identifier Dates Transcarotid artery revascularization (TCAR) Bare-metal carotid artery stent ()[id number] FDA Start: 07-08-2022 Transcarotid artery revascularization (TCAR) Bare-metal carotid artery stent ()[id number] FDA Start: 07-08-2022 Percutaneous endovascular repair of abdominal aortic aneurysm (AAA) Abdominal aorta endovascular stent-graft ()[id number] FDA Start: 02-04-2022 Percutaneous endovascular repair of abdominal aortic aneurysm (AAA) Abdominal aorta endovascular stent-graft ()[id number] FDA Start: 02-04-2022 Percutaneous endovascular repair of abdominal aortic aneurysm (AAA) Abdominal aorta endovascular stent-graft ()[id number] FDA Start: 02-04-2022 Goals Date Patient Goal Desired Activity /State Functional Status Date Assessment Result Facility 01-13-2023 Functional Status N/A [facility] 10-07-2022 Functional Status N/A [facility] 07-09-2022 Functional status Patient is Pro gressing Toward Baseline [facility] Work Phone: 06-24-2022 Functional Status N/A [facility] 04-15-2022 Functional Status N/A [facility] 02-25-2022 Functional Status N/A [facility] 02-18-2022 Functional Status N/A [facility] 02-11-2022 Functional Status N/A [facility] 02-05-2022 Functional status Patient at Baseline [facility] Work Phone: 10-15-2021 Functional status Patient at Baseline [facility] Work Phone: Mental Status Date Assessment Result Facility 07-09-2022 Cognitive function Cognitive Sta tus Patient is Progressing Toward Baseline [facility] Work Phone: 02-05-2022 Cognitive function Cognitive Sta tus Patient at Baseline [facility] Work Phone: 10-15-2021 Cognitive function Cognitive Sta tus Patient at Baseline [facility] Work Phone: Clinical Notes 04-18-2020 to 03-29-2023 Note Date & Type Note Facility 03-29-2023 Evaluation note Encounter Date Diagnosis Assessment Notes Mar, ASHD (arteriosclerotic heart disease) (ICD-10 - I25.10) This patient is stable without activity related CP, dyspnea or lightheadedness. They are instructed to continue exercise and AHA diet plan. Continue secondary prevention measures. Mar, Primary hypertension (ICD-10 - I10) This patient is instructed to consume a healthy, low-fat, low-salt diet. They are also encouraged to continue exercise to achieve/maintain a normal BMI. Patient is instructed on home BP measurements: - rest for 5 minutes w/o talking.- positioned w/ feet on floor and arm supported.- average best 2/3 readings w/ goal < 135/85.- update office later this week Monitor BP / HR - hold carvedilol for HR < 60 - hold Losartan for BP < 100 Mar, Nonrheumatic aortic valve stenosis (ICD-10 - I35.0) Denies CP, tachycardia or lightheadedness. Continue to monitor w/ serial Echocardiogram Informed of importance of avoiding elevate BP Mar, Stenosis of left carotid artery (ICD-10 - I65.22) s/p CEA Denies unilateral neurologic deficits Instructed on stroke symptoms and to go to ER w/ suspicious symptoms. COntinue secondary prevention measures. Mar, Infrarenal abdominal aortic aneurysm (AAA) without rupture (ICD-10 - I71.43) s/p EVAR denies claudication. Continue secondary prevention measures Mar, Left nephrolithiasis (ICD-10 - N20.0) s/p ESWL w/ left ureteral stent placment Expected gross hematuria following procedure Denies fever or chills, continue to monitor f/u Mar, Gross hematuria (ICD-10 - R31.0) Expected following ESWL and stent placement This has resolved INstructed on increasing fluids Restart [employer] Other 11-08-2023 Hospital Discharge instructions Patient Education 01/13/2023 09:52:36 [...] urethra. Follow these instructions at home: Take kmrg-uam-okjjkhc and prescription medicines only as told by [...] provider. Document Revised: 09/10/2021 Document Reviewed: 09/10/2021 [employer] Patient Education 2022 [employer]. Follow Up Care 10/07/2022 09:26:45 With:Ivelisse Hassan MD, URL, URO Address: When: Unknown [facility] 09-05-2023 Evaluation note* Encounter Date Diagnosis Assessment Notes Treatment Notes Treatment Clinical Notes Nov, Carotid stenosis, left (ICD-10 - [...] in the office with a CT scan. [facility] Other 08-02-2023 Hospital Discharge instructions Patient Education [...] urethra. Follow these instructions at home: Take ypjk-xew-nxkchoh and prescription medicines only as told by [...] provider. Document Revised: 09/10/2021 Document Reviewed: 09/10/2021 [employer] Patient Education 2022 [employer]. Follow Up Care 07/28/2022 10:29:31 With:Mo LEIJA, AKILAH Smith, URO Address: When:Within 3 Day(s) [facility] 05-30-2023 Evaluation note* Encounter Date Diagnosis Assessment [...] a couple of weeks. These have resolved. [employer] Other 05-04-2023 Discharge summary Author Raul Quan [facility] July 09, 2022 12:08pm Note Date/Time July 09, 2022 8:07am [facility] [address] [place] [address] Discharge Summary Signed Patient: Chico Baker MR#: [id number] : 1940 Acct:[id number] Age/Sex: 82 / M Adm Date: 3 Loc: Room: [address] [place] [address]: Raul Quan MD Copies to: Shailesh Dunham,TOMMIE Mueller MD~ Providers Date of Discharge: 07/09/22 Discharging [...] midline, neck is supple, no JVD. 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 He has a little [...] <Electronically signed by MD Raul Quan> 07/09/22 9855 [facility] Work Phone: 1(968) 127-390305-03-2023 History and physical note Author Raul Quan [facility] July 08, 2022 11:06am Note Date/Time July 08, 2022 11:06a m [facility] [address] [place] [address] Vascular Surgery H&P Signed Patient: Chico Baker MR#: [id number] : 1940 Acct:[id number] Age/Sex: 82 / M Adm Date: 3 Loc: Room: 6D8794-4 Type: ADM IN Attending Dr: Raul Quan MD Copies to: DO Raul Frias MD~ Date of Service: 07/08/2022 HPI History [...] signed by MD Raul Quan> 07/08/22 [facility]6 [facility] Work Phone: 1(949) 906-325904-19-2023 Hospital Discharge instructions Patient Education 06/24/2022 09:42:41 [...] Follow these instructions at home: Medicines Take carq-jua-gbbhfko and prescription medicines only as told by [...] or the blood stops without treatment. Take iuep-bnc-vqxwuzs and prescription medicines only as told by your health care provider. Drink enough fluid to keep your urine pale yellow. This information is not intended to replace advice given to you by your health care provider. Make sure you discuss any questions you have with your health care provider. Document Revised: 10/23/2020 Document Reviewed: 10/23/2020 [employer] Patient Education 2022 [employer]. Follow Up Care 04/15/2022 10:15:03 With:Mo LEIJA, AKILAH Smith, URO Address: [address], [place] [phone] When: Unknown 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 Walk daily Inspect feet daily for cuts [facility] Other 03-14-2023 Evaluation note* Encounter Date Diagnosis [...] left TCAR procedure once he returns from [place] at the end of June beginning of [...] agree with plan, and denies any questions. [facility] Other 03-08-2023 Evaluation note* Encounter Date Diagnosis Assessment Notes Treatment Notes Treatment Clinical Notes May, Carotid stenosis, bilateral (ICD-10 - I65.23) CTA: < 50% right, 80% left [facility] Other 03-08-2023 Evaluation note* Encounter Date Diagnosis Assessment Notes Treatment Notes Treatment Clinical Notes May, Carotid stenosis, bilateral (ICD-10 - I65.23) CTA: < 50% right, 70% left - 05/2022 [facility] Other 02-08-2023 Hospital Discharge instructions Patient Education [...] prostate. Follow these instructions at home: Take gdro-dvo-wgzdbuz and prescription medicines only as told by [...] 02/19/2001 Document Revised: 05/07/2018 Document Reviewed: 11/12/2016 [employer] Patient Education 2020 [employer]. Follow Up Care 02/11/2022 10:55:52 With:Mo LEIJA, AKILAH Smith, URO Address: When: Unknown [facility] 02-07-2023 Evaluation note* Encounter Date Diagnosis Assessment Notes Treatment Notes Treatment Clinical Notes Apr, Primary hypertension (ICD-10 - I10) [facility] Other 01-03-2023 Evaluation note* Encounter Date Diagnosis [...] to perform simultaneously to minimize contrast exposure. [facility] Other 12-21-2022 Hospital Discharge instructions Patient Education 02/25/2022 12:02:33 Rash, Adult, Gcvm-kb-Ifaz Rash, Adult A rash is a change [...] with your condition: Medicine Take or apply mdug-lkq-poknmtp and prescription medicines only as told by [...] the rash from spreading. Take or apply rsjk-rli-yuxfajd and prescription medicines only as told by [...] 08/10/2008 Document Revised: 06/16/2019 Document Reviewed: 09/26/2018 [employer] Patient Education 2020 [employer] Follow Up Care 02/18/2022 14:33:21 With:Ivelisse Hassan Address:Unknown When: Unknown Comments:Appointment has already been scheduled [facility] 12-14-2022 Hospital Discharge instructions Patient [...] including vitamins, herbs, eye drops, creams, and mylx-amp-hgkxobj medicines. Any problems you or family members [...] provider tells you to take them. Taking oess-yoa-kvtglig medicines, vitamins, herbs, and supplements. Eating and [...] 02/22/2006 Document Revised: 06/14/2019 Document Reviewed: 11/23/2018 [employer] Patient Education 2019 [employer]. Follow Up Care 02/17/2022 16:33:06 With:ARASH BUCHANAN, IVA Ellis, URL Address: [address] [place] [address]. [place] [address] [phone] When:02/25/2022 [facility] 12-07-2022 Hospital Discharge instructions Patient [...] prostate. Follow these instructions at home: Take hmok-fvz-vkmnoyg and prescription medicines only as told by [...] 02/19/2001 Document Revised: 05/07/2018 Document Reviewed: 11/12/2016 [employer] Patient Education 2020 [employer]. Follow Up Care 01/28/2021 10:15:04 With:Mo LEIJA, AKILAH Smith, URO Address: When:6 weeks [facility] 12-01-2022 Discharge summary Author Raul Quan [facility] February 05, 2022 10:08am Note Date/Time February 05, 2022 7 :52am [facility] [address] [place], [place] [id number] Discharge Summary Signed Patient: Chico Baker MR#: [id number] : 1940 Acct:[id number] Age/Sex: 81 / M Adm Date: 2 Loc: 4N Room: 1W6889-[address]: Raul Quan MD Copies to: [...] % (Auto) 69.5, Lymph % (Auto) 14.4, Dougherty % (Auto) 14.8, Eos % (Auto) 0.7, Baso % (Auto) 0.6, Nucleat RBC Rel Count 0.1, Neut # (Auto) 7.1, Lymph # (Auto) 1.5, Dougherty # (Auto) 1.5 H, Eos # (Auto) 0.1, Baso # (Auto) 0.1 02/04/22 08:25: Corrected WBC 9.3, Uncorrected WBC Count 9.3, RBC 4.10, Hgb 12.4L, Hct 37.5 L, MCV 91.5, MCH 30.2, MCHC 33.0, RDW 13.7, Plt Count 198, MPV 8.5, Neut % (Auto) 70.1, Lymph % (Auto) 16.4, Dougherty % (Auto) 12.0, Eos % (Auto) 0.9, Baso % (Auto) 0.6, Nucleat RBC Rel Count 0.0, Neut # (Auto) 6.5, Lymph # (Auto) 1.5, Dougherty # (Auto) 1.1 H, Eos # (Auto) [...] <Electronically signed by MD Raul Quan> 02/05/22 [facility]8 [facility] Work Phone: 1(381) 516-387911-15-2022 Evaluation note* Encounter Date Diagnosis Assessment Notes [...] we will evaluate him for left TCAR. [facility] Other 10-31-2022 Evaluation note* Encounter Date Diagnosis [...] complete and CT confirms candidacy for TCAR [facility] Other 09-19-2022 Evaluation note* Encounter Date Diagnosis Assessment Notes Treatment Notes Treatment Clinical Notes Nov, AAA (abdominal aortic aneurysm) without rupture (ICD-10 - I71.4) This patient is still recovering from his recent orthopedic procedures. He continues with physical therapy and although he is getting stronger, he remains quite fatigued and weak yet. He has an upcoming appointment with his pharmacy technician inpatient for preoperative risk assessment and stratification this next week. We will give him a few more weeks of physical therapy and have him back in a month or so to reschedule his AAA. He did tell me that he had some abdominal pain while in the shelter facility and was taken to the [facility] where a CT of the abdomen was obtained. We will get these studies pushed over for review and comparison. He denies any abdominal pain today and tells me his appetite is pretty good. He knows to call us in the meantime with any issues. [facility] Other 07-26-2022 Evaluation note* Encounter Date Diagnosis [...] agrees with this plan, denies any questions. [facility] Other 07-11-2022 Evaluation note* Encounter Date Diagnosis [...] agrees with this plan, and denies questions. [facility] Other 07-11-2022 Evaluation note* Encounter Date Diagnosis [...] agrees with this plan, and denies questions. [facility] Other 05-23-2022 Evaluation note* Encounter Date Diagnosis [...] returns we will get baseline ankle-brachial indices. [facility] Other 10-06-2021 NoteHNO ID: [id number] Author: Power Catherine MD Service: ? Author Type: Physician Type: Progress Notes Filed: 12/11/2020 11:17 AM Note Text: [facility] OUTPATIENT VISIT DATE December 11, 2020 OUTPATIENT VISIT TYPE EST PRIMARY CARE PHYSICIAN: Shailesh Dunham (Jere) [address] [place] [address] REFERRING PHYSICIAN Power Catherine [address] [facility] [address] CHIEF COMPLAINT: Patient presents with: Established Patient [...] up. Continue statin therapy. ? Power Catherine, [facility]02-11-2021 NotePatient Outreach (COVAMN) CHICO BAKER ([id number]) 1940 M Date Time Provider Department 04/18/20 KIMBERLEY REHMAN During your visit today, we recorded the following information about you: Allergies As of Date: 04/18/2020 Noted Allergy Reaction SHALINI INHIBITORS 05/09/2015 16 - Unknown GADOLINIUM-CONTAINING CONTRAST ME*05/09/2015 16 - Unknown TETANUS VACCINES AND TOXOID 05/16/2015 16 - Unknown Date Reviewed: 10/18/2017 Reviewed by: Power Catherine - Fully Assessed Order(s):SARS-COVID VACCINE 1ST DOSE APPT [[id number]] Order #: [id number] FUTURE Prescriptions as of 04/18/2020 Sig: ASPIRIN [...] (None) Encounter Status:Closed by EPIC, PRODUSER on 04/22/20[facility] Evaluation + Plan note Future Appointments Appointment Date:04/15/2022 08:45:00 AM Scheduled Provider:Ivelisse Hassan MD Location:[facility] Appointment Type:URO Office Visit [facility] Hospital evaluation + Plan note Future Appointments Appointment Date:04/15/2022 08:45:00 AM Scheduled Provider:Ivelisse Hassan MD Location:[facility] Appointment Type:URO Office Visit Diagnostic Tests Pending * [facility] Future App[facility]ments Appointment Date:02/25/2022 11:00:00 AM Scheduled Provider:IVA ANTOINE PA-C Location:[facility] Appointment Type:URO Office Visit Appointment Date:04/15/2022 08:45:00 AM Scheduled Provider:Ivelisse Hassan MD Location:[facility] Appointment Type:URO Office Visit [facility] evaluation + Plan note Future Appointments Appointment Date:06/24/2022 09:30:00 AM Scheduled Provider:Ivelisse Hassan MD Location:[facility] Appointment Type:URO Office Visit [facility] evaluation + Plan note Future Appointments Appointment Date:01/13/2023 09:00:00 AM Scheduled Provider:Ivelisse Hassan MD Location:[facility] Appointment Type:URO Office Visit [facility] evaluation note* Diagnosis Onset Date Resolution Status AAA (abdominal aortic aneurysm) acute [facility] Work Phone: Evaluation noteNo assessment information available [facility] Work Phone: evalujsagw noteNo [facility] Ping Communication Other evalubczjm note* Diagnosis Onset Date Resolution Status Left carotid stenosis acute [facility] Work Phone: Hiscmom general Narrative - Reported* Type Description Date Medical History hypercholesterolemia Medical History abdominal aortic aneurysm Medical History Carotid stenosis Medical History PAD Surgical History TURP Surgical History knee arthroscopy LEFT Surgical History Vein stripping Hospitalization History See Above [facility] Other Hisyzkr general Narrative - Reported* Type Description Date Medical History hypercholesterolemia Medical History abdominal aortic aneurysm Medical History Carotid stenosis Medical History PAD Surgical History TURP Surgical History knee arthroscopy LEFT Surgical History Vein stripping Surgical History RT FEMUR FX WITH ARABELLA PLACEMENT Hospitalization History See Above [facility] Other Hisbuip general Narrative - Reported* Type Description Date Medical History hypercholesterolemia Medical History abdominal aortic aneurysm Medical History Carotid stenosis Medical History PAD Medical History [ ] Surgical History TURP Surgical History knee arthroscopy LEFT Surgical History Vein stripping Surgical History RT FEMUR FX WITH ARABELLA PLACEMENT Surgical History EVAR 02/04/2022 Surgical History [ ] Hospitalization History See Above [facility] Other history general Narrative - Reported* Type Description Date [...] History COLONOSCOPY 2019 Hospitalization History See Above [facility] Other Hiszgrz general Narrative - Reported* Type Description Date [...] Left TCAR 07/2022 Hospitalization History See Above [facility] Other Histych general Narrative - Reported* Type Description Date [...] Left TCAR 07/2022 Hospitalization History See Above [facility] Other Hisqmix general Narrative - Reported* Type Description Date [...] History RT FEMUR FX WITH ARABELLA PLACEMENT 10/2021 Surgical History EVAR 02/04/2022 Surgical History COLONOSCOPY 2019 Surgical History Left TCAR 07/2022 Surgical History Cystoscopy, left ure teral stent placment, left ESWL 03/2023 Hospitalization History See Above [facility] Other Hospital course Narrative No data available for this section [facility] Discharge instructions No data available for this section [facility] Author Raul Quan [facility] October 15, 2021 4:31pm Note Date/Time October 15, 2021 4: 31pm [facility] [address] [place] [address] Vascular Surgery Progress Note Signed Patient: Chico Baker MR#: [id number] : 1940 Acct:[id number] Age/Sex: 81 / M Adm Date: 2 Loc: 4N Room: 9N7324-5 Type: DIS IN Attending Dr: Raul Quan [...] evaluation here. I will contact [facility] to performoutpatient cardiac evaluation and then he will be rescheduled when he is cleared. Code(s): I71.4 - Abdominal aortic aneurysm, without rupture Status: Acute Documented By: Raul Quan MD 10/15/21 162 9 Signed By: <Electronically signed by MD Raul Quan> 10/15/21 1631 [facility] Work Phone: Progress note Author Pb Zurita [facility] October 16, 2021 5:41am Note Date/Time October 16, 2021 5: 41am [facility] [address] [place] [address] Anesthesia Progress Note Signed Patient: Chico Baker MR#: [id number] : 1940 Acct:[id number] Age/Sex: 81 / M Adm Date: 2 Loc: Room: [address] [place] [address] Type: DIS IN Attending Dr: Raul Quan MD Copies to: ~ Anesthesia Progress Note Narrative Narrative: Patient for EVAR today for 5+ centimeter infrarenal AAA. Past medical history hypertension, moderate aortic stenosis, and coronary artery disease. Review of medical records and discussion with indicates patient had stress test 2008 positive for infarct and ischemia at which time he was referred to [facility] and had cardiac cath. Medical management was apparently chosen. No interval events,testing, or intervention. Patient has been asymptomatic but sedentary and poor historian. Advised patient and family to see pharmacy technician inpatient for consideration of preop stress testing. Discussed with surgeon Documented By: Pb Zurita MD 10/16/21 0535 Signed By: <Electronically signed by Pb Zurita MD> 10/16/21 0541 [facility] Work Phone: Progress note No data available for this section [facility] Reason for Referral No Reason [...] data available for this section No InformationNo Information Assessments Findings Encounter Date Encounter for Immunization 1st COVID Vaccine manuel Sher PharmD 06/13/2020 Instructions Instructions not supported for this document type No Instructions Recorded History of Present Illness History of Present Illness not supported for this document type No History of Present Illness Recorded Family History Relationship Condition Age at Onset Recorded Date/T tad sister Diabetes mellitus Unknown brother Heart problem Unknown Review of System Review of Systems not supported for this document type No Review of Systems Recorded Physical Exam Physical Exam not supported for this document type No Physical Exam Recorded Advance Directives Advance Directive Response Recorded Date/ Time Advance [...] section and content) DATE CREATED AUTHOR 04/02/2021 [facility] DATE CREATED AUTHOR AUTHOR'S ORGANIZ ATION 10/28/2021 [facility] DATE CREATED AUTHOR AUTHOR'S ORGANIZ ATION 04/14/2022 [facility] DATE CREATED AUTHOR AUTHOR'S ORGANIZ ATION 11/11/2022 [facility] DATE CREATED AUTHOR AUTHOR'S ORGANIZ ATION 03/05/2023 [facility] REASON FOR VISIT (unrecogniz ed section and content) REF BY DR DUNHAM FOR AAA, PAD AND CAROTID STENOSIS, Needs a new vascular surgeon7 WK FOLLOW UP; SHYANNE'S, ABDOMINAL, CAROTID WK FOLLOW UP; SHYANNE'S, ABDOMINAL, CAROTID 08/27/21FOLLOW UP AFTER [facility] 09/18/21-AAAAAA see pt post femur fx rt and clavicle rt6 WK FOLLOW UP, Follow-up abdominal aortic aneurysmVASC 3 MONTH FOLLOW UP; CAROTID DUPLEX 11A, Abdominal aortic aneurysm3 week f/u EVAR, Follow-up after percutaneous aneurysm repairNo InformationNo InformationNo InformationNo InformationNo Information2 MONTH FOLLOW UP; CTA [facility]/ Follow UpNo InformationNo InformationNo Information3 week f/u left TCAR, Follow-up TCAR3 MONTH FOLLOW UP; CAROTID DUPLEX 10A, Follow-up after left TCARNo InformationTBH follow up Care Teams (unrecognized sec tion and content) [...] Dunham , DO Primary Care Provider Active OZZIE WangC Attending Provider Active Goals (unrecognized section and [...] BE BASED ON THE PRIMARY CLINICAL RECORDS. [email or web address] [facility]. provides no warranty or guarantee of the accuracy or completeness of information in this document.
[2023-04-04 18:58] VITALS: BP 174/72
[2023-04-04 19:03] VITALS: BP 170/74
--- NOTE | 2023-04-04 19:09 | ED.GENADUL1 ---
HPI - General Adult General Chief complaint: Chest Pain Stated complaint: HYPERTENSION Time Seen by Provider: 04/04/23 18:45 Source: patient Mode of arrival: walk-in History of Present Illness HPI narrative: Patient is an 82-year-old male who presents to the emergency department for abnormally elevated blood pressures that were noted at home by his on a home blood pressure cuff. Patient was recently seen by myself and admitted to the hospital for breakthrough hypertension. Medications were adjusted by the hospitalist staff. His PCP Dr. Vinson asked the to make a log of blood pressures at home which she sent to the office last week. Patient's was checking his blood pressure this evening although the patient did not have any symptoms and he was noted to have 3 blood pressure readings with the systolic blood pressure over 200. He denies dizziness, headache, visual changes, chest pain, shortness of breath. She gave him half of a losartan tab 1 hour ago and his manual blood pressure on arrival is 170/74. Related Data Home Medications Medication Instructions Recorded Confirmed isosorbide dinitrate 30 mg tablet 30 mg PO DAILY 03/12/23 04/04/23 pravastatin 40 mg tablet 40 mg PO DAILY 03/12/23 04/04/23 cholecalciferol (vitamin D3) 25 1,000 unit PO BID 03/24/23 04/04/23 mcg (1,000 unit) capsule carvedilol 25 mg tablet (Coreg) 25 mg PO BID 04/04/23 04/04/23 losartan 100 mg tablet 50 mg PO DAILY 04/04/23 04/04/23 Previous Rx's Medication Instructions Recorded tamsulosin 0.4 mg capsule 0.4 mg PO QPM stone passage, stent 03/24/23 pain #30 caps Allergies Allergy/AdvReac Type Severity Reaction Status Date / Time SHALINI Inhibitors Allergy Unknown Verified 03/17/23 14:49 Iodinated Contrast Media Allergy Unknown Hives Verified 03/17/23 14:49 iodine Allergy Unknown Hives Verified 03/17/23 14:49 tetanus toxoid, adsorbed Allergy Unknown Verified 03/17/23 14:49 Review of Systems ROS Constitutional Denies: fever or chills Ears, nose, mouth, and throat Denies: throat pain Cardiovascular Denies: chest pain Respiratory Denies: shortness of breath or cough Gastrointestinal Denies: nausea or vomiting Neurological Denies: headache, numbness in extremities, weakness in extremities, lack of coordination or dizziness [facility] Medical History (Updated 04/04/23 @ 19:08 by BEHZAD Dawson) Presence of internal carotid stent (~07/2022) ?Z95.828 - Presence of other vascular implants and grafts (ICD-10) Aortic valve stenosis ?I35.0 - Nonrheumatic aortic (valve) stenosis (ICD-10) Heart murmur ?R01.1 - Cardiac murmur, unspecified (ICD-10) Carotid stenosis ?I65.29 - Occlusion and stenosis of unspecified carotid artery (ICD-10) Anemia ?D64.9 - Anemia, unspecified (ICD-10) Femur fracture (~10/2021) ?S72.90XA - Unspecified fracture of unspecified femur, initial encounter for closed fracture (ICD-10) AAA (abdominal aortic aneurysm) ?I71.40 - Abdominal aortic aneurysm, without rupture, unspecified (ICD-10) Heartburn ?R12 - Heartburn (ICD-10) Delayed recovery from anesthesia Urethral stricture ?N35.919 - Unspecified urethral stricture, male, unspecified site (ICD-10) Post-void dribbling ?N39.43 - Post-void dribbling (ICD-10) Penile rash ?R21 - Rash and other nonspecific skin eruption (ICD-10) Paget's disease Nocturia ?R35.1 - Nocturia (ICD-10) Incontinence ?R32 - Unspecified urinary incontinence (ICD-10) Microhematuria ?R31.29 - Other microscopic hematuria (ICD-10) Impotence ?N52.9 - Male erectile dysfunction, unspecified (ICD-10) Hypertension ?I10 - Essential (primary) hypertension (ICD-10) Hyperlipidemia ?E78.5 - Hyperlipidemia, unspecified (ICD-10) Kidney stones ?N20.0 - Calculus of kidney (ICD-10) Gross hematuria ?R31.0 - Gross hematuria (ICD-10) Erectile dysfunction ?N52.9 - Male erectile dysfunction, unspecified (ICD-10) Dysuria ?R30.0 - Dysuria (ICD-10) BPH (benign prostatic hyperplasia) ?N40.0 - Benign prostatic hyperplasia without lower urinary tract symptoms (ICD-10) Asymptomatic microscopic hematuria ?R31.21 - Asymptomatic microscopic hematuria (ICD-10) ASHD (arteriosclerotic heart disease) ?I25.10 - Atherosclerotic heart disease of robinson coronary artery without angina pectoris (ICD-10) Surgical History (Updated 03/25/23 @ 13:51 by Rajni Rios NP) H/O lithotripsy ?Z98.890 - Other specified postprocedural states (ICD-10) History of open reduction and internal fixation (ORIF) procedure (~10/2021) ?Z98.890 - Other specified postprocedural states (ICD-10) Hx of esophagogastroduodenoscopy ?Z98.890 - Other specified postprocedural states (ICD-10) H/O cardiac catheterization ?Z98.890 - Other specified postprocedural states (ICD-10) H/O arthroscopy of knee ?Z98.890 - Other specified postprocedural states (ICD-10) H/O colonoscopy ?Z98.890 - Other specified postprocedural states (ICD-10) H/O cystoscopy ?Z98.890 - Other specified postprocedural states (ICD-10) H/O transurethral resection of prostate ?Z98.890 - Other specified postprocedural states (ICD-10) ?Z90.79 - Acquired absence of other genital organ(s) (ICD-10) S/P AAA repair (~02/2022) ?Z98.890 - Other specified postprocedural states (ICD-10) ?Z86.79 - Personal history of other diseases of the circulatory system (ICD-10) S/P cystourethroscopy with dilation of urethral stricture ?Z98.890 - Other specified postprocedural states (ICD-10) Social History Within the past year, how often did you have a drink containing alcohol: 2-3 times a week Smoking status: Former smoker Non-prescribed substance use: denies use Previous occupational history: retired Highest level of school completed/degree received: high school graduate Are you now , , , , never or living with a partner: In a typical week, how many times do you talk on the telephone with family, friends, or neighbors: twice per week How often do you get together with friends or relatives: twice per week Little interest or pleasure in doing things: not at all Feeling down, depressed, or hopeless: not at all Feel stressed/tense/nervous/anxious/difficulty sleeping: not at all Do you think of yourself as: straight/heterosexual Gender Identity: male Exam Narrative Exam Narrative: Gen.: Awake, alert, in no distress Head: Normocephalic, atraumatic ENT: Moist mucous membranes Respiratory: No respiratory distress, lungs clear bilaterally Cardio: Regular rate and rhythm Extremities: Moves extremities equally Psych: Normal mood and affect Neuro: No focal neuro deficit Skin: Warm, dry, intact Constitutional Vital Signs, click to edit/add: Last Vital Signs Temp 98.3 F 04/04/23 18:47 Pulse 67 04/04/23 18:47 Resp 16 04/04/23 18:47 BP 170/74 H 04/04/23 19:03 Pulse Ox 98 04/04/23 18:47 Course Vital Signs Vital signs: Vital Signs Temperature 98.3 F 04/04/23 18:47 Pulse Rate 67 04/04/23 18:47 Respiratory Rate 16 04/04/23 18:47 Blood Pressure 204/115 H 04/04/23 18:47 Pulse Oximetry 98 04/04/23 18:47 Temperature 98.3 F 04/04/23 18:47 Pulse Rate 67 04/04/23 18:47 Respiratory Rate 16 04/04/23 18:47 Blood Pressure 170/74 H 04/04/23 19:03 Pulse Oximetry 98 04/04/23 18:47 Medical Decision Making MDM Narrative Medical decision making narrative: Manual blood pressure in the emergency department is controlled and patient is asymptomatic. I discussed the case with Dr. Vinson who recommended no additional intervention or medication adjustment at this time, patient's is in agreement with this and she is comfortable with treatment plan. They will call Dr. Vinson's office tomorrow morning for medication adjustments if indicated. Return to the ER if symptoms change or worsen. Medical Records Medical records reviewed: Yes I reviewed the patient's medical records Discharge Plan Discharge Chief Complaint: Chest Pain Clinical Impression: Hypertension Patient Disposition: Home, Self-Care Time of Disposition Decision: 19:08 Condition: Good Prescriptions / Home Meds: No Action isosorbide dinitrate 30 mg tablet 30 mg PO DAILY pravastatin 40 mg tablet 40 mg PO DAILY tamsulosin 0.4 mg capsule 0.4 mg PO QPM Qty: 30 1RF carvedilol [Coreg] 25 mg tablet 25 mg PO BID losartan 100 mg tablet 50 mg PO DAILY cholecalciferol (vitamin D3) 25 mcg (1,000 unit) capsule 1,000 unit PO BID Instructions: Hypertension (ED) Additional Instructions: Call Dr. Vinson's office tomorrow morning for further medication instructions Stand Alone Forms: Portal Instructions Referrals: Shailesh Vinson DO [Primary Care Provider] - 1 week Discharge Date/Time: 04/04/23 19:27
== END 2023-04-04 19:27 | disposition home or self-care (01) ==
PROVIDERS: Emergency Provider Emergency Medicine; PCP Internal Medicine
DX: I10 Essential (primary) hypertension (principal); Z79.899 Other long term (current) drug therapy; Z95.828 Presence of other vascular implants and grafts; I35.0 Nonrheumatic aortic (valve) stenosis; I65.29 Occlusion and stenosis of unspecified carotid artery; E78.5 Hyperlipidemia, unspecified; Z87.442 Personal history of urinary calculi; N52.9 Male erectile dysfunction, unspecified; N40.0 Benign prostatic hyperplasia without lower urinary tract symptoms; I25.10 Atherosclerotic heart disease of native coronary artery without angina pectoris; Z98.890 Other specified postprocedural states; Z87.891 Personal history of nicotine dependence
CPT/HCPCS: 99281

== ENCOUNTER 2023-04-07 10:56 | Outpatient (OUT) | payer MEDICARE, OTHER, SELFPAY ==
--- NOTE | 2023-04-07 11:07 | XR_ITS ---
The [address] [address] Patient Name: CHICO BAKER MRN: [id number] date: 1940 Sex: M Assigned Patient Location: RAD Current Patient Location: RAD Accession/Order Number: [id number] Exam Date: 04/07/2023 11:02 Report Date: 04/07/2023 11:29 At the request of: SHERMAN AGUILAR Procedure: XR abdomen 1V EXAM: XR abdomen 1V HISTORY: Kidney Stone COMPARISON: None. TECHNIQUE: AP view of the abdomen. FINDINGS: Nonobstructive bowel gas pattern is noted. The multiple bilateral renal calculi, largest measuring up to 7 mm. Indwelling left double-J ureteral stent. The osseous structures are intact. Indwelling aortic bilateral iliac endograft. XR/XR abdomen 1V IMPRESSION: Nonobstructive bowel gas pattern. Bilateral nephrolithiasis. Indwelling left double-J ureteral stent. Electronically authenticated by: SUZE BALDERAS Date: 04/07/2023 11:29
--- OUTSIDE RECORDS SUMMARY | 2023-04-07 11:13 | XMS_ITS | CCD ---
Author Name Unknown Address [address] [place] [address] Organization [facility] Care Team Providers Care Ladle Cleaner Name Role Phone Orlando Dotson Unavailable Raul Quan Unavailable Tamar Perea Unavailable Shailesh Dunham Unavailable DO Shailesh Dunham Primary Care Provider [phone] MD Raul Quan Attending Provider KB Perea Attending Provider MD Raul Quan Admit Provider [phone] DO Shailesh Dunham Primary Care Provider KB Perea Attending Provider MD Raul Quan Admit Provider MD Raul Quan Attending Provider SHAILESH DUNHAM Primary Care Physician [phone] [place] .IVELISSE Admitting Unavailable LUCaleb .IVELISSE Attending [...] NONE LISTED Attending Unavaila ble ENRICO, DR MAEDE Primary Care Unavailable REQUEST, NONE LISTED Consulting Unavaila ble Shailesh Dunham Unavailable DO Shailesh Dunham Primary Care Provider MD Raul Quan Attending Provider [phone] DO Shailesh Dunham Primary Care Provider [phone] MD Raul Quan Attending Provider MD Raul Quan Admit Provider [phone] DO Shailesh Dunham Primary Care Provider [phone] MD Raul Quan Attending Provider Shailesh Dunham [...] Admitting Unavailable Raul Quan Attending Unavailable En[facility] [place] [facility] Unavailable Raul Quan Attending Unavailable [...] Converting Enzyme (Shalini) Inhibitors Drug allergy Unknown [facility] Noom Other (6 sources) Tetanus vaccine; Translations: [tetanus toxoid] Drug allergy Unknown [facility] Rep[facility] (19 sources) Angiotensin Converting Enzyme (Shalini) Inhibitors; Translations: [Angiotensin-conve rting enzyme inhibitor agent (substance)] Allergy to substance 02-24-20 19 Hiv, [facility] (8 sources) Contrast media Allergy to substance 10-07-19 22 [facility] (8 sources) Tetanus immune globulin Drug Allergy 02-24-20 19 Unknown Reaction [facility] (20 sources) Angiotensin-conver ting enzyme inhibitor agent Drug allergy Unknown [facility] Noom Other (2 sources) Tetanus toxoid specific immunoglobulin E Drug allergy Unknown [facility] No[facility] Other (10 sources) Contrast media; Translations: [Contrast Dye] Allergy to substance unknown [facility] (10 sources) Iodine; Translations: [iodine] Drug Allergy Unknown (qualifier value) [facility] (9 sources) tetanus toxoid vaccine, inactivated; Translations: [tetanus toxoid] Drug Allergy Unknown (qualifier value) [facility] (1 source) Iodine Drug Allergy [facility] (1 source) Iodine (And Iodine Containting Drugs) Drug allergy (disorder) [facility] (1 source) Tetanus AND Diphtheria Tox,Adult Drug allergy (disorder) [facility] (18 sources) Tetanus vaccine Drug allergy Unknown [facility] Noom Other (3 sources) Iodinated Contrast Media Allergy to substance 07-02-19 23 [facility] Medications Current Medications Medication Drug Class(es) Dates Sig (Normalized) Sig (Original) amLODIPine 2.5 mg oral tablet (2 sources) Dihydropyridine Calcium Channel Helder Start: 04-05-2023 take 1 tablet by mouth every twenty-four hours amLODIPine Besylate 2.5 MG 1 tablet Orally Once a day for 30 days Mar, Active aspirin 81 mg delayed release oral tablet [...] Activ e cholecalciferol 0.025 mg oral capsule (15 sources) Vitamin D Start: 07-01-2022 take 1 [...] PO Daily February 23, 2019 1:00am Isosorbide [place] itrate Active isosorbide dinitrate 30 mg oral [...] Daily, # 30 tab(s), Refills(s) 6, Pharmacy: [facility]/pharmacy #[id number], 169, cm, 10/07/22 8:54:00 EDT, Height/Length Dosing, 61.5, kg, 10/07/22 8:54:00 EDT, Weight Dosing Start Date: 10/07/22 Status: Ordered oxybutynin chloride 5 mg oral tablet (4 sources) Cholinergic Muscarinic Antagonist take 1 tablet by [...] for 30 day(s), 60 tab(s), Refill(s) 0, [facility]/pharmacy #[id number], 169, cm, 02/11/22 8:44:00 EST, Height/Length Dosing, 71, kg, 02/11/22 8:44:00 EST, Weight Dosing Start Date: 02/11/22 Stop Date: 03/13/22 Status: Ordered tamsulosin hydrochloride 0.4 mg oral capsule (4 sources) alpha-Adrenergic Helder take 1 capsule by mouth [...] acid 7540 MG / polyethylene glycol 3350 67751 MG / potassium chloride 1200 MG / sodium ascorbate 87800 MG / sodium chloride 3200 MG Powder for Oral Solution) / 1 (polyethylene glycol 3350 515611 MG / potassium chloride 1000 MG / [...] Date: 02/11/22 Status: Ordered Losartan Potassi um 100 MG 1/2 Orally twice daily Active take 1 tablet by freddy th every twenty-four hours Losartan Potassium 100 MG 1 tablet Orall y Once a day Active Losartan Potassi um [...] Coronary arteriosclerosis; Translations: [Atherosclerotic heart disease of [place] coronary artery without angina pectoris] Onset: 11-14-2021 03-28-2019 Chronic Deficiency and other anemia (15 sources) Anemia; Translations: [Anemia, unspecified] Episodic Diabetes mellitus without complication (16 sources) Impaired fasting glycemia; Translations: [Impaired fasting glucose] Episodic Disorders of lipid metabolism (20 sources) Hyperlipidemia; Translations: [Pure hypercholesterolemi a, unspecified] Onset: 10-28-2021 03-28-2019 Chronic E Codes: Adverse effects of medical drugs (16 sources) Adverse effect of anticoagulants, initial encounter; [...] prostate, unspecified] Onset: 02-11-2022 Episodic Nutritional deficiencies (15 sources) Vitamin D deficiency; Translations: [Vitamin D deficiency, unspecified] Chronic Occlusion or stenosis of precerebral arteries (20 sources) Carotid artery stenosis; Translations: [Occlusion and stenosis of unspecified carotid artery] Onset: 07-28-2021 Resolved: 09-15-2021 Chronic Other bone disease and musculoskeletal deformities (9 sources) Osteitis deformans 03-28-2019 Chronic Other bone disease and musculoskeletal deformities (15 sources) 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; 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] Chronic Other diseases of bladder and urethra (4 sources) Male urethral stricture; Translations: [Unspecified urethral stricture, male, unspecified site] Onset: 10-06-2022 Episodic Other gastrointestinal disorders (15 sources) Diarrhea; Translations: [Diarrhea, unspecified] Episodic Other lower respiratory disease (15 sources) Dyspnea on exertion; Translations: [Other forms of dyspnea] Episodic Other male genital disorders (13 sources) Male erectile dysfunction, unspecified; Translations: [Erectile dysfunction] Onset: 02-11-2022 Chronic Other nutritional; endocrine; and metabolic disorders (15 sources) Abnormal weight loss; Translations: [Abnormal weight [...] of genitalia 02-18-2022 Episodic Other skin disorders (15 sources) Vesicular eczema of hands and/or feet; [...] 2 Episodic Other aftercare (1 source) Other [facility] (current) drug therapy; Translations: [OTH ALF CURRENT DRUG THERAPY] Onset: 2 Episodic Other aftercare (1 source) [facility] (current) use of anticoagulants; Translations: [RUBBER ENGRAVER CURRNT USE ANTICOAGULANTS] Onset: 2 Episodic Other aftercare (1 source) [facility] (current) use of aspirin; Translations: [ALF CURRENT USE OF ASPIRIN] Onset: 2 Episodic [...] LINDSEY and KUB done in March at [facility]. Orders placed. Possible ESWL pending size of stones. No follow up at this time. Pt to be called with results. Called pt and reminded him to complete LINDSEY/KUB @ [facility] in the next month. Orders were [...] From: Belkis Johnson MA (EU - Recalls Lue) To: Ivelisse Hassan MD; Sent: 02/25/2023 13:44:44 [...] hard stone and large stone burden. Thanks, KMErasmo Patient is scheduled for 03/24/22 @ [facility] Comment on above: Result Comment: Miss ing Attachment - attachment exceeds size limitation (02/19/2023) RAD - Ultrasound Report Can be viewed in source system Missing Attachment - attachment exceeds size limitation (02/19/2023) RAD - MISC Can be viewed in source system RAD - MISCon 02-22-2023 RAD - MISC [id number]#1.00TIFF [facility] RAD - Ultrasound Reporton RAD - Ultrasound Report [id number]#1.00TIFF [facility] Screenson 01-14-2023 Screens [id number]#1.00TIFF [facility] Screens [id number]#1.00TIFF [facility] Patient Educationon 01-14-20 Patient Education Urology Benign [...] Follow these instructions at home: ? Take gicw-lbl-jfrwmql and prescription medicines only as told by [...] the medicine (more content not included)... Normal [facility] Urology Office/Clinic Noteon 01-13-2023 Urology Office/Clinic [...] with voice recognition artificial intelligence software, specifically [employer], [employer] and or [employer]. Substitutions may have occurred due to the [...] stones no (more content not included)... Normal [facility] Comment on above: Result Comment: Elec tronically Signed By: Ivelisse Hassan MD\.br\Date and Time Signed: 01/13/23 16:25 EST\.br\Electronically Co-Signed By: Faviola Clemens\.br\Date and Time Co-Signed: 01/13/23 09:59 EST US carotid doppler BIon 09-0 US carotid doppler BI [place] [address] Ultrasound Report Signed Patient: Chico Baker MR#: [id number] 284 : 1940 Acct:[id number] Age/Sex: 82 / M ADM Date: 11/10/22 Loc: [facility] Room: Type: [facility] Attending Dr: Raul Quan MD Ordering [...] Raul Quan M.D.11/10/2022 10:30 AM Dictation Location: [place] [address] Tech: Harika Pradhan Transcribed By: ALEX 11/10/22 1030 Dictated By: Raul Quan MD 11/10/22 1029 Signed By: 11/10/22 1030 [facility] Screenson 10-08-2022 Screens [id number]:127 [facility] Screens [id number]:127 [facility] Ambulatory Visit Summaryon 0 10-07-2022 Ambulatory Visit Summary CHICO BAKER :1940 Visit Date:10/07/2022 Ambulatory Visit Instructions Your Diagnosis BPH with obstruction/lower urinary tract symptoms History of kidney stones Asymptomatic microscopic hematuria 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 Tests Performed Urnls Dip Stick Auto w/o Microscopy POC 30407 Your Care Team Attending Physician - Mo [...] Follow-Up Appointments Wednesday 9:00 AM EST With: Mo LEIJA, Ivelisse Schreiber Where: [facility] Patient Educationon 10-08-19 Patient Education Urology Benign [...] Follow these instructions at home: ? Take vuvu-gju-tlocdcg and prescription medicines only as told by [...] the medicine (more content not included)... Normal [facility] Urology Office/Clinic Noteon 10-07-2022 Urology Office/Clinic [...] lower urinary tract symptoms) hx TURP by [facility] 2019, prostate small on 05/11/22 CT [...] neg, s (more content not included)... Normal [facility] Comment on above: Result Comment: Elec tronically Signed By: Ivelisse Hassan MD\.br\Date and Time Signed: 10/07/22 10:28 EDT\.br\Electronically Co-Signed By: Eleonora Belcher\.br\Date and Time Co-Signed: 10/07/22 09:25 EDT Consent for Procedure/Surger brandi 07-29-2022 Consent for Procedure/Surgery [id number]#[id number]:127 Normal [facility] Patient Educationon 07-29-19 Patient Education [...] these instructions at home: Medicines ? Take lxrs-jaz-erzkzho and prescription medicines only as told by [...] include cig (more content not included)... Normal [facility] Urology Office/Clinic Noteon 07-28-2022 Urology Office/Clinic [...] urine The Urethra was dilated to: 16-24 Arabic with connor sounds without difficulty Soft 14 [...] (erectile d (more content not included)... Normal [facility] Comment on above: Result Comment: Elec tronically Signed By: Ivelisse Hassan MD\.br\Date and Time Signed: 07/28/22 10:49 EDT\.br\Electronically Co-Signed By: Clarissa Joaquin MA\.br\Date and Time Co-Signed: 07/28/22 10:28 EDT Activated Clotting Timeon Activated Clotting Time POC 335 s High 90-139 [facility] Comment on above: Result Comment: Refe rence Range: 90-139 (Non-heparinized) PERFORMED BY: [place] [address] PATHOLOGIST JACK SPOOLER TENDER ZENA CASTELLON M.D. Performed By: #### C , [facility] #### [address] Activated Clotting Time POC 143 s High 90-139 [facility] Comment on above: Result Comment: Refe rence Range: 90-139 (Non-heparinized) PERFORMED BY: [place] [address] PATHOLOGIST JACK SPOOLER TENDER ZENA CASTELLON M.D. Performed By: #### C SEAN, BMP #### [facility] [address] Blood activated clotting sue e by coagulation assayOrdered By: Raul Quan on 07-08-2022 ACT Coag (Bld) 335 s 90-139 [facility] Comment on above: Reference Range: 90- 139 (Non-heparinized) Laboratory - CoagulationOrde red By: Raul Quan on 07-08-2022 PT Coag (PPP) [Time] 11.7 s 9.0-12.9 [facility] Platelet poor plasma interna tional normalized ratio (INR) by coagulation assay (relatOrdered By: Raul Quan on 07-08-2022 INR Coag (PPP) [Relative time] 1.0 {INR} [facility] Comment on above: INR Therapeutic [...] Coag (PPP) [Relative time] 1.0 {INR} Normal [facility] Comment on above: Result Comment: [...] heart valves: 3 - 4.5 PERFORMED BY: [place] [address] PATHOLOGIST JACK SPOOLER TENDER ZENA CASTELLON M.D. Performed By: #### C SEAN, BMP #### [facility] [address] PT Coag (PPP) [Time] 11.7 s Normal 9.0-12.9 [facility] Comment on above: Performed By: #### C BC, BMP #### [facility] [address] [place] [address] [place] Type and Screenon 07-08-2022 ABO and Rh group Nom (Bld) Blood group A Rh(D) positive Normal [facility] Comment on above: Result Comment: PERF ORMED BY: [facility] [address] [facility] [place] [address] PATHOLOGIST JACK SPOOLER TENDER ZENA CASTELLON M.D. Alanine aminotransferase [En zymatic activity/volume] in Serum or PlasmaOrdered By: Raul Quan on 07-01-2022 ALT [Catalytic activity/Vol] 9 U/L 7-52 [facility] Albumin [Mass/volume] in Ser um or Plasma by Bromocresol green (BCG) dye binding methoOrdered By: Raul Quan on 07-01-2022 Albumin BCG dye [Mass/Vol] 3.7 g/dL 3.5-5.7 [facility] Alkaline phosphatase [Enzyma tic activity/volume] in Serum or PlasmaOrdered By: Raul Quan on 07-01-2022 ALP [Catalytic activity/Vol] 96 U/L 34-104 [facility] Aspartate aminotransferase [ Enzymatic activity/volume] in Serum or PlasmaOrdered By: Raul Quan on 07-01-2022 AST [Catalytic activity/Vol] 14 U/L 13-39 [facility] Basophils Auto (Bld) [#/Vol] Ordered By: Raul Quan on 07-01-2022 Basophils (Bld) [#/Vol] 0.1 10*3/uL 0.0-0.2 [facility] Basophils/100 WBC Auto (Bld) Ordered By: Raul Quan on 07-01-2022 Basophils/100 WBC (Bld) 0.7 % . [facility] Bilirubin.total [Mass/volume ] in Serum or PlasmaOrdered By: Raul Quan on 07-01-2022 Bilirubin [Mass/Vol] 0.5 mg/dL 0.3-1.0 [facility] Calcium [Mass/volume] in Ser um or PlasmaOrdered By: Raul Quan on 07-01-2022 Calcium [Mass/Vol] 8.5 mg/dL 8.6-10.3 [facility] Carbon dioxide, total [Moles /volume] in Serum or PlasmaOrdered By: Raul Quan on 07-01-2022 CO2 [Moles/Vol] 24.6 mmol/L 21.0-31.0 [facility] Chloride [Moles/volume] in S aisha or PlasmaOrdered By: Raul Quan on 07-01-2022 Chloride [Moles/Vol] 100 mmol/L 98-107 [facility] Complete Blood Count Auto Di ffon 07-01-2022 Basophils (Bld) [#/Vol] 0.1 10*3/uL Normal 0.0-0.2 [facility] Comment on above: Result Comment: PERF ORMED BY: [place] [address] PATHOLOGIST JACK SPOOLER TENDER ZENA CASTELLON M.D. Performed By: #### C BC, CMP #### [address] Basophils/100 WBC (Bld) 0.7 % Normal . [facility] Comment on above: Performed By: #### C BC, CMP #### [address] Eosinophils (Bld) [#/Vol] 0.1 10*3/uL Normal 0.0-0.45 [facility] Comment on above: Performed By: #### C BC, CMP #### [address] Eosinophils/100 WBC (Bld) 1.5 % Normal . [facility] Comment on above: Performed By: #### C BC, CMP #### [address] Erythrocyte distribution width (RBC) [Ratio] 13.0 % Normal 12.0-14.8 [facility] Comment on above: Performed By: #### C BC, CMP #### [address] Hematocrit (Bld) [Volume fraction] 36.4 % Low 38.8-50.0 [facility] Comment on above: Performed By: #### C BC, CMP #### [address] Hemoglobin (Bld) [Mass/Vol] 12.1 g/dL Low 13.0-17.0 [facility] Comment on above: Performed By: #### C BC, CMP #### [address] Lymphocytes (Bld) [#/Vol] 1.6 10*3/uL Normal 1.00-4.8 [facility] Comment on above: Performed By: #### C BC, CMP #### [address] Lymphocytes/100 WBC (Bld) 19.3 % Normal . [facility] Comment on above: Performed By: #### C BC, CMP #### [address] MCH (RBC) [Entitic mass] 30.2 pg Normal 27.5-35.2 [facility] Comment on above: Performed By: #### C BC, CMP #### [address] MCV (RBC) [Entitic vol] 90.7 fL Normal 83.5-101 [facility] Comment on above: Performed By: #### C BC, CMP #### [address] Mean Corpuscular HGB Conc 33.3 g/dL Normal 32.5-35.6 [facility] Comment on above: Performed By: #### C BC, CMP #### [address] Monocytes (Bld) [#/Vol] 0.9 10*3/uL High 0.0-0.8 [facility] Comment on above: Performed By: #### C BC, CMP #### [place] [address] [place] Monocytes/100 WBC (Bld) 11.1 % Normal . [facility] Comment on above: Performed By: #### C BC, CMP #### [facility] [address] Neutrophils (Bld) [#/Vol] 5.7 10*3/uL Normal 1.8-7.7 [facility] Comment on above: Performed By: #### C BC, CMP #### [facility] [address] Neutrophils/100 WBC (Bld) 67.4 % Normal . [facility] Comment on above: Performed By: #### C SEAN, CMP #### [facility] [address] NRBC% 0.0 /100{WBC} Normal 0-0.5 [facility] Comment on above: Performed By: #### C SEAN, CMP #### [facility] [address] Platelet mean volume (Bld) [Entitic vol] 7.6 fL Normal 6.6-10.1 [facility] Comment on above: Performed By: #### C SEAN, CMP #### [facility] [address] Platelets (Bld) [#/Vol] 198 10*3/uL Normal 150-450 [facility] Comment on above: Performed By: #### C BC, CMP #### [facility] [address] RBC (Bld) [#/Vol] 4.01 10*6/uL Normal 3.90-5.60 [facility] Comment on above: Performed By: #### C BC, CMP #### [facility] [address] WBC (Bld) [#/Vol] 8.5 10*3/uL Normal 4.1-10.5 [facility] Comment on above: Performed By: #### C BC, CMP #### [facility] [address] Comprehensive Metabolic Pane santo 07-01-2022 Albumin [Mass/Vol] 3.7 g/dL Normal 3.5-5.7 [facility] Comment on above: Performed By: #### C BC, CMP #### [facility] [address] Albumin/Globulin [Mass ratio] 1.1 {ratio} Normal [facility] Comment on above: Performed By: #### C BC, CMP #### [address] ALP [Catalytic activity/Vol] 96 U/L Normal 34-104 [facility] Comment on above: Result Comment: PERF ORMED BY: [place] [address] PATHOLOGIST JACK SPOOLER TENDER ZENA CASTELLON M.D. Performed By: #### C BC, CMP #### [address] ALT [Catalytic activity/Vol] 9 U/L Normal 7-52 [facility] Comment on above: Performed By: #### C BC, CMP #### [address] Anion gap [Moles/Vol] 13.8 mmol/L Normal 6.0-15.0 [facility] Comment on above: Performed By: #### C BC, CMP #### [address] AST [Catalytic activity/Vol] 14 U/L Normal 13-39 [facility] Comment on above: Performed By: #### C BC, CMP #### [facility] [address] [place] [address] [place] Bilirubin [Mass/Vol] 0.5 mg/dL Normal 0.3-1.0 [facility] Comment on above: Performed By: #### C BC, CMP #### [address] Calcium [Mass/Vol] 8.5 mg/dL Low 8.6-10.3 [facility] Comment on above: Performed By: #### C BC, CMP #### [facility] [address] [place] [address] [place] Chloride [Moles/Vol] 100 mmol/L Normal 98-107 [facility] Comment on above: Performed By: #### C BC, CMP #### [facility] [address] CO2 [Moles/Vol] 24.6 mmol/L Normal 21.0-31.0 [facility] Comment on above: Performed By: #### C BC, CMP #### [facility] [address] Creatinine [Mass/Vol] 0.87 mg/dL Normal 0.70-1.30 [facility] Comment on above: Performed By: #### C BC, CMP #### [facility] [address] [place] [address] [place] GFR/1.73 sq M.predicted MDRD (S/P/Bld) [Vol rate/Area] mL/min/{1.73_m2} [facility] Comment on above: Performed By: #### C BC, CMP #### [facility] [address] Globulin (S) [Mass/Vol] 3.4 g/dL [facility] Comment on above: Performed By: #### C BC, CMP #### [facility] [address] Glucose [Mass/Vol] 163 mg/dL High 70-100 [facility] Comment on above: Result Comment: [place] Glucose Reference Range is dependent on time and content of last meal. Glucose of more than 200 mg/dL in a nonstressed, ambulatory subject supports the diagnosis of Diabetes Mellitus. ADA recommended reference range Performed By: #### C BC, CMP #### [facility] [address] Potassium [Moles/Vol] 4.4 mmol/L Normal 3.5-5.1 [facility] Comment on above: Performed By: #### C BC, CMP #### [facility] [address] [place] [address] [place] Protein [Mass/Vol] 7.1 g/dL Normal 6.4-8.9 [facility] Comment on above: Performed By: #### C BC, CMP #### [facility] [address] Sodium [Moles/Vol] 134 mmol/L Low 136-145 [facility] Comment on above: Performed By: #### C BC, CMP #### [facility] [address] Urea nitrogen [Mass/Vol] 17 mg/dL Normal 7-25 [facility] Comment on above: Performed By: #### C BC, CMP #### [facility] [address] [place] [address] Creatinine [Mass/volume] in Serum or PlasmaOrdered By: Raul Quan on 07-01-2022 Creatinine [Mass/Vol] 0.87 mg/dL 0.70-1.30 [facility] ECG 12 lead ECGon 07-01-2022 ECG 12 lead ECG [facility] [place] [address] [place] [address] Electrocardiograph Report Signed Patient: Chico Baker MR#: [id number] 284 : 1940 Acct:[id number] Age/Sex: 82 / M ADM Date: 07/01/22 Loc: Room: Type: [facility] Attending Dr: Raul Quan MD Ordering [...] Electronically Signed By:ROSANNE SHABAZZ DO Transcribed By: ARLENE Signed By Rosanne Shabazz DO 07/03 0637 Normal [facility] Eosinophils Auto (Bld) [#/Vo l]Ordered By: Raul Quan on 07-01-2022 Eosinophils (Bld) [#/Vol] 0.1 10*3/uL 0.0-0.45 [facility] Eosinophils/100 WBC Auto (Bl d)Ordered By: Raul Quan on 07-01-2022 Eosinophils/100 WBC (Bld) 1.5 % . [facility] Erythrocyte distribution wid th Auto (RBC) [Ratio]Ordered By: Raul Quan on 07-01-2022 Erythrocyte distribution width (RBC) [Ratio] 13.0 % 12.0-14.8 [facility] Globulin Calc (S) [Mass/Vol] Ordered By: Raul Quan on 07-01-2022 Globulin (S) [Mass/Vol] 3.4 g/dL [facility] Glucose [Mass/volume] in Ser um or PlasmaOrdered By: Raul Quan on 07-01-2022 Glucose [Mass/Vol] 163 mg/dL 70-100 [facility] Comment on above: ADA recommended refe rence rangeRandom Glucose Reference Range is dependent on time and content of last meal. Glucose of more than 200 mg/dL in a nonstressed, ambulatory subject supports the diagnosis of Diabetes Mellitus. Hematocrit Auto (Bld) [Volum e fraction]Ordered By: Raul Quan on 07-01-2022 Hematocrit (Bld) [Volume fraction] 36.4 % 38.8-50.0 [facility] Hemoglobin [Mass/volume] in BloodOrdered By: Raul Quan on 07-01-2022 Hemoglobin (Bld) [Mass/Vol] 12.1 g/dL 13.0-17.0 [facility] Leukocytes [#/volume] correc shyann for nucleated erythrocytes in Blood by Automated counOrdered By: Raul Quan on 07-01-2022 WBC corrected for nucl RBC Auto (Bld) [#/Vol] 8.5 10*3/uL 4.1-10.5 [facility] Lymphocytes Auto (Bld) [#/Vo l]Ordered By: Raul Quan on 07-01-2022 Lymphocytes (Bld) [#/Vol] 1.6 10*3/uL 1.00-4.8 [facility] Lymphocytes/100 WBC Auto (Bl d)Ordered By: Raul Quan on 07-01-2022 Lymphocytes/100 WBC (Bld) 19.3 % . [facility] MCH Auto (RBC) [Entitic mass ]Ordered By: Raul Quan on 07-01-2022 MCH (RBC) [Entitic mass] 30.2 pg 27.5-35.2 [facility] MCHC Auto (RBC) [Mass/Vol]Or dered By: Raul Quan on 07-01-2022 MCHC (RBC) [Mass/Vol] 33.3 g/dL 32.5-35.6 [facility] MCV Auto (RBC) [Entitic vol] Ordered By: Raul Quan on 07-01-2022 MCV (RBC) [Entitic vol] 90.7 fL 83.5-101 [facility] Monocytes Auto (Bld) [#/Vol] Ordered By: Raul Quan on 07-01-2022 Monocytes (Bld) [#/Vol] 0.9 10*3/uL 0.0-0.8 [facility] Monocytes/100 WBC Auto (Bld) Ordered By: Raul Quan on 07-01-2022 Monocytes/100 WBC (Bld) 11.1 % . [facility] Neutrophils Auto (Bld) [#/Vo l]Ordered By: Raul Quan on 07-01-2022 Neutrophils (Bld) [#/Vol] 5.7 10*3/uL 1.8-7.7 [facility] Neutrophils/100 WBC Auto (Bl d)Ordered By: Raul Quan on 07-01-2022 Neutrophils/100 WBC (Bld) 67.4 % . [facility] No Panel InformationOrdered By: Raul Quan on 07-01-2022 Estimated GFR (CKD-EPI) > 60.0 mL/Min [facility] Creatinine Clearance (Chem N/A [facility] Nucleated erythrocytes [Pres ence] in Blood by Automated countOrdered By: Raul Quan on 07-01-2022 Nucleated RBC Auto Ql (Bld) 0.0 /100{WBC} 0-0.5 [facility] Platelet mean volume Auto (B ld) [Entitic vol]Ordered By: Raul Quan on 07-01-2022 Platelet mean volume (Bld) [Entitic vol] 7.6 fL 6.6-10.1 [facility] Platelets Auto (Bld) [#/Vol] Ordered By: Raul Quan on 07-01-2022 Platelets (Bld) [#/Vol] 198 10*3/uL 150-450 [facility] Potassium [Moles/volume] in Serum or PlasmaOrdered By: Raul Quan on 07-01-2022 Potassium [Moles/Vol] 4.4 mmol/L 3.5-5.1 [facility] Protein [Mass/volume] in Ser um or PlasmaOrdered By: Raul Quan on 07-01-2022 Protein [Mass/Vol] 7.1 g/dL 6.4-8.9 [facility] RBC Auto (Bld) [#/Vol]Ordere d By: Raul Quan on 07-01-2022 RBC (Bld) [#/Vol] 4.01 10*6/uL 3.90-5.60 [facility] Serum or plasma albumin/glob ulin mass ratioOrdered By: Raul Quan on 07-01-2022 Albumin/Globulin [Mass ratio] 1.1 {ratio} [facility] Serum or plasma anion gap de terminationOrdered By: Raul Quan on 07-01-2022 Anion gap [Moles/Vol] 13.8 mmol/L 6.0-15.0 [facility] Sodium [Moles/volume] in Ser um or PlasmaOrdered By: Raul Quan on 07-01-2022 Sodium [Moles/Vol] 134 mmol/L 136-145 [facility] Urea nitrogen [Mass/volume] in Serum or PlasmaOrdered By: Raul Quan on 07-01-2022 Urea nitrogen [Mass/Vol] 17 mg/dL 09-29 [facility] WBC Auto (Bld) [#/Vol]Ordere d By: Raul Stanislawchantellmary ann on 07-01-2022 WBC (Bld) [#/Vol] 8.5 10*3/uL 4.1-10.5 [facility] Patient Educationon 06-25-19 Patient Education Urology Hematuria, [...] these instructions at home: Medicines ? Take flrn-pdy-rtzvitz and prescription medicines only as told by [...] the blood stops without treatment. ? Take hbri-jyx-ebqhjwl and prescription medicines only as told by your health care provider. ? Drink enough fluid to keep your urine pale yellow. This information is not intended to replace advice given to you by your health care provider. Make sure you discuss any questions you have with your health care provider. Document Revised: 10/23/2020 Document Reviewed: 10/23/2020 [facility] Patient Education ? 2022 [facility] Normal [facility] Screenson 06-24-2022 Screens [id number]#1.00CD:127 Normal [facility] Screens [id number]#[id number]:127 [facility] Office/Clinic Noteon 06-24-2022 Urology Office/Clinic Note [...] Urnls Dip Stick Auto w/o Microscopy POC 29326 Urology Procedure Order 4. Penile rash (R21: Rash and other nonspecific skin eruption) Pt states rash has completely cleared up after stopping Bactrim. Denies irritation. Head of penis is not red, but is discolored. Not bothersome. D/c use of cream. Resolved Ordered: Urology Procedure Order 5. ED (erectile dysfunction) (N52.9: Male erectile dysfunction, unspecified) (more content not included)... [facility] Comment on above: Result Comment: Elec tronically Signed By: Mo LEIJA, Ivelisse Doll.br\Date and Time Signed: 06/24/22 10:24 EDT RAD - CT Reporton 05-15-2022 RAD - CT Report [id number]#1.00CD:127 Normal [facility] RAD - CT Reporton 05-14-2022 RAD - CT Report [id number]#1.00CD:127 Normal [facility] RAD - CT Report [id number]#1.00CD:127 [address] [facility] CT angio abdomen pelvison CT angio abdomen pelvis [facility] [place] [address] [place] [address] CT Scan Report Signed Patient: Chico Baker MR#: [id number] : 1940 Acct:[id number] Age/Sex: 81 / M ADM Date: 05/11/22 Loc: CT Room: Type: [facility] Attending Dr: Raul Quan MD Copies to: [...] The graft appears to be patent. The [place] aneurysmal sac appears mildly decreased in size [...] left hemipelvis. Impression dictated by: Woody Payan Jr. DTricia05/11/2022 3:58 PM Dictation Location: [place] [address] Transcribed By: [facility] 05/11/22 1558 Dictated By: Woody Payan Jr, DO 05/11/22 1551 Signed By: 05/11/22 1558 Normal [facility] CT angio neckon 05-11-2022 CT angio neck [facility] [place] [address] [place], [place] [id number] CT Scan Report Signed Patient: Chico Baker MR#: [id number] : 1940 Acct:[id number] Age/Sex: 81 / M ADM Date: 05/11/22 Loc: CT Room: Type: [facility] Attending Dr: Raul Quan MD Copies to: Raul Quan MD Ordering Provider: Raul Quan MD Date of Service: 05/11/22 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, I71.4 ([id number]) CT/CT angio head: I65.23, I71.4 CTA head [...] Raul Solo M.D.05/11/2022 5:04 PM Dictation Location: [place] [address] Transcribed By: [facility] 05/11/221703 Dictated By: Raul Solo DO 05/11/22 1648 Signed By: 05/11/22 170 [facility] Creatinine (Bld) [Mass/Vol]O rdered By: Raul Quan on 05-11-2022 Creatinine [Mass/Vol] 0.9 mg/dL 0.6-1.3 [facility] Comment on above: ER/ESD physician is notified/shown all ISTAT results.Critical values may be confirmed by laboratory testing ifdeemed necessary by ER attending doctor. ISTAT XRay CREon 05-11-2022 Creatinine [Mass/Vol] 0.9 mg/dL Normal 0.6-1.3 [facility] Comment on above: Result Comment: ER/E SD physician is notified/shown all ISTAT results. Critical values may be confirmed by laboratory testing if deemed necessary by ER attending doctor. Performed By: #### C BC, BMP #### [facility] [address] [place] [address] ISTAT GFR ( > 60 Normal [facility] Comment on above: Result Comment: GFR estimated reference range: According to KDOQI guidelines, <60 ml/min/1.73m2 is sufficient to diagnose a patient with chronic kidney disease. PERFORMED BY: [place] [address] PATHOLOGIST JACK SPOOLER TENDER ZENA CASTELLON M.D. Performed By: #### C BC, BMP #### [facility] [address] ISTAT GFR (Non- Am > 60 [facility] Comment on above: Performed By: #### C BC, BMP #### [facility] [address] No Panel InformationOrdered By: Raul Quan on 05-11-2022 POC Estimated GFR > 60 [facility] Comment on above: GFR estimated refere nce range: According to KDOQI guidelines, <60 ml/min/1.73m2 is sufficient to diagnose a patient with chronic kidney disease. POC Estimated GFR Non- Amer > 60 [facility] Coding Summary.on 04-20-2022 Coding Summary. CD:[id number] Gh0bWw +PGhlYWQ+XR6HIFCjT46paRXjf G9BM1sMMA3QDBEIQXJJDE6YIB4 cmWS2UStpG3LlidCf CwjfhAMsSI97DHb8JZH8jDfkTE biyQ2kwAAyR2r1ZtHzRO26uT34 VYvsHNDmJgK8VhWyqirhcHPe Q1iyAuZarAVwZji+PHRhYmxlIH oqRQPwOWmzIVJtDzUfpUceZW9i Gn3aIADoXFTceLercBRdEjJe r5asIIIfVGxhME4hgDcyW0WozX L6STAgn7q1Cm33hYQ+PHRkIHN0 vAwoPUbae308UfZbe6dvBHP8 cTShSAitSMB4F03dj6Z7YNTzPZ UkVZW3kXF5kL5moDjofiauS8Je fVMkLuV6OMJ6hYCdeB6ykChr nbrzxL9gOri+Z32LRN3MBXMBQK 4VTzw7R4WdUsjxbTF+JR36FQSc IY36kMUbfPUez3zqhCo3JlGy SBDyADS2nVoxXQwdv2NiSHLaI8 4cnBGhv3U4GBFtuTuxgGDgOgJv gZS3eA0yZYdmklwlf7qbybrb Lomaw6zcee84qK57N71eELrnHE XqHNJ5EWGfRYRdrLwhos2deO9y Ii8+WLxih8uzb1gtmKo7NdDr VBYvudTcvKybQZD8e5PoCu50D9 EpqQeko4ApNfs9qj68fMYon6Y1 vYU3IGueXHKyxD5hPVyvPqY7 WEDxAgGnyA90eYUnHWrtZz7fwP lzoKjgQZ8lJUIazhuwYOBerP3u YBPuoQDzkWdiHL2nJFWmkvjk o953TzGcPUT8MHNlzPTlB0SmtT 6dNaOfZUZuGKKwL0PtzSNoDDed J766UQlcMiV6YUZyunPrG2Pn SFQmhMitUjJ2j1V8Iq0Ub5Edvx sjESP1PVdzAIWrEzVrRxKlJpT8 C2ImYiz5ADSplIqbKX5nS5Jj YSNmjqbewdtloML1EBMeCZUhuS 91fUCwLDepJb2ej2F8r705PLCk DXFzyH62Sx5bdOwuQGQwuSWD bY2byuwhi7ccgfnfEdBwZQNgTK c5CLp6AAAwlQzxSgFvXKF0FsY2 CIJ5qNYrpC6wySeukfktjO3p Oyc+M07hdF6gSOB2GGF4xxucXI XhmgYdKG91HL54T4CsZkubzLJh bGU+ECPqxiOxcHnlSS0xGzSd n7zxb0EhANwdV2GdAIDmKPosZb m5FPYpLDQ8kKT5aM6tBUTxLHlj o2O1cNC0U0IdqsPija1pf8fa VFVnOWyuV56dcSZoe2E8SPDlsY N6LYIouCclYzMtjG15Okl+PGNv gVbzb9IzPrsqw0rzq7nhzZv1 KlTgBCJfbqYhfVlcPXP2w2VzYs 00D62bDDlhJOPpEGSfORLwMJPw bOopap4dxT3jHq2+PGNvbCB3 zXV0jF7iLAEvGzM2PUckR450Ej TizOTbGzndh6szl5gjgMo9ByQz MAXuwxDnwPoeOEP6q8EzPr16 O89vFDubAMIkXSPwMXAzBNZqxO vtiu4aiP0wDx5+KX7fr4nefz62 kC10pIW+XVOoTBP3wLnlIWdy WOKfsK2bAWkzFhV1VMNuEgTjgK 09hVMwVLnbGn2hdChqrCsjYB1m PTXrttuus397FhJhz4smZMAo oSZmNYlnEMN0A17xp3I8ZYIlMO ImERH0qZI2xT9fvNmhqitfsIBu uFvgrkYwaVmjOEqhGSazT734 IHRvcDsnPlBhdGllbnQgTmFtZT z5M8MsJxl0WVVpeQpmKR6xaSOb KJgtLn5czIediZunVW4xGKIa usseh839ZmKzh7gvLTXvgTTmBV zfCLP0A34dy5E0NWUqRLZfIDH6 xJE1bT3rfBwaklwubCDhaBmm fdObsHvwQWegBPcyK189UEIasX cjNwZzlnTyZAJukUO3CS39ZP81 oYVdp7R6fKX3B7RtKDFcejog ljxzxDG6DMAdOETwlM97Hg8vlT pwTk9zPBFcSOC2GDTaxKUoB9Or fJ9xJrOxSTJyHFLqZ5PgkUUs RLfcP696JOuoMzC3TWPyifGtQ2 QhDNIygOwuKxY4g5S6Kk6GK3D8 TD69WN45jGNxm0S9mAV9Z7Kl THFebioppfwcqSY9GBIfPHMebD 93Gn6cmNezMm9gIEYeCYU8MYXr hIHrJ1AvoG9wOjZvPBInIIWf H9QjyDDxOQltO113RShnYnS5EM WaxvWiY6XsDCNmjPumZhU7s8U0 Xl7ZNPs2ET35KD22fAEni3O9 uJM8Q4SvXHQwsqganzeipDB5LT PmFEXnvY14Py1quHdyWt2kRQTz RJV2JYVgaJNqD4YmjY6pVlPd MCOdIBBxQ5UaxLXfMVxdC481UK bhClH6IGBbbcEzZ7JpIEArlZfb VxN9z2Q9Sf1SRYCzTY86PPJ7 hXA1HV76FQ21E3HyXjlbxXAenI U+PHRhYmxlIHdpZHRoPScxMDAl YuUjpIoxNK7iLc3fJLYrPRIk yRubjMPqMpXsy8djZADtKKkbFC 2wmCkwS3KlvDW6ZXRkp1v6Rz11 N91wR5IphDT+QMYihWA7rLJ3 hT1mPbTdFuT3RYxpF552BdHxwB UjTiutw1tto4rmlLp5LfB8LEJf hnZvhWagQJG9q9ZhTt41B24e IHdpZHRoPSIxNSUiIHZhbGlnbj 4ssM7mBx2+MCEtvST8aRS4cN4g UyJhZkB8HEdiI327XdDgrVYa Ideux6gcp3iqcPu2VfBzQREgfq JhfHqcMBL6i2LfBg67V2TjsLlh l9HiVlb9oh98tCDuo2P4tSX7 Z9StYFOgfonoyAFcoYtvCJ2iPS NczceyJQUxyT5uIVHqJ3k8WtMv QaW1MUprV1WghrW0SXXzeDRt GEktAVM6D99gw4G6SYLlAOFoQL X7qFK1cP8olBtkpueuqISvkGav ajWlkXreLBdhWGxxU360HVLk zCqpQQTyzQ6pHDWigEYqbBwxPR 2iAJZvgjnvHz9BHY5RKQXLNARI IKXPLLs7B6ReOvg7LXUfsLuf AT7tiVEyYFtfRh5qhIcjiLodXB 0wUKPtqqipFNDqxE2bUDPguXYr qZhmMG7yBSPonoazw637CyEc KGA7UQBloZJmA7GnaK3jNjYwVP DpQPYyC2TloNYyLJxtR406EQhf WcN6NVFbafHgJ9AyVWTyjEvc XbE5z3A0Js0fSP0lEP5jNQZfHL 45QK16cENvw0M3hJN2T8YfVUFz dsehetjymRM2YXOlIIHmtK75 tCWiUShbNx3vs1K5n651HSEfOD EcxP70Ws9bxJeeJWLssHQQpH1b ogkwe9ilcmnsCuVbDDAdFJj0 TRr2KIRhtDtxQfOnSNN5FdK5QI Z6cOCxzZ4rmPpxrfyafI6kVqz+ DbqkUHNbyrE1I9UkFhe2TPFb wHbeUW7rtTUxRShsWe9dlJiitC eeSU8qZGWbrgwmAVSefK3hOQQz nHFbsVwoLZ4tRLIbdpgrf093 AlEwYOP0KGIxqFCsR1EtrS1oJg NqWPLjOYXgJ9LciQQoLArxV058 VPssPzF6ORPwyrQpU5OdBUEr lQabUvO3j1E2Ir5AIQekII36ZA 23iJUmm5K5hBQ3A7NeVETysypd euopyRL2MOMqQTWneD59gURq ZQdfDn7zp5N3u394YUMpBZYwgC 43Ze6reVmrCSLhwBWCzQ9lxbqx u0anmuvhGnTfVRQwHKv5NPe0 IWYyoDhrXrAtSKM2OhH2BBE1lD XsiY3ltWwhmzfzwI9zAxa+TGFi QMGwx4Abc2QlNX08WA02N2Sx PjwvdGFibGU+PHRhYmxlIHdpZH YxBMxkHQQbFtBauFncJR2iAz2p DKIaOMQywBlwcAPyGwQqv3hs ZIRuBMbkQU0etQonT6UhoTA8GO Nqx3e0Cz95B94cG4IwzTF+PGNv yND1lUH3mC2gQrEwQcP2OLzm Z982CrEorTNuVsdob4tft9xisA y1LkRuUESlmxFyiSiuDAE4n5Ad Lf40V09yRXehFVAxHKFyQDCr OCCsxXbqup8xdD5jFg2+PGNvbC S4kJZ2nT3tDtGmSjU7XKccQ491 JsRpjILgUourH97mU8YpgYO+ CVFkAua6VDIjlUccPQ1etKWwOK vyZa3jNIB6NqXgTbErQVzgE6Lv SEBmafwozazntDG5RGHhCBVi aH89Ky9nnWhdIk8rHGXqOJT8EY UfrHQeE6ZpcC6cHuNxMCWfFHCl M7NvuQBiPMxmB994ZAviBxI2 OFVwizUeU8OjNKKaiPrwUpA5r2 J3Zx0DxRsdsZHmAP7dRyCiWRw5 C0LgBqw5ZIEgtOiiFZ8mzZIz IUhiVp4qyHptcLosBY8nTKZyjl toh411AuApu2uwZRYquQZlDDwy WEW3L97xg9O4WKFzIGGkPKP5 vWI5uM7syCwgwhfneOVgbFqqce OfkRtsXLcwGGzcV371HIQarWmk IlPRCrn6T4ViLvc1XHGmgTcj DP8rrUBkZMfmQl4ioMbrnRmhXO 2zNNUorzdmb038StEsa9xyGWOb oGAcZSziJHD6Q73xq3H0CQOr UMTmYPF7fQI4sE7isDeedfpdkL SvvDqdekVfxHjsQGumAFdwP141 DEYccXrySe5ZJdo5Z6OrQvy7 RFKhqGmnOJ7boIEgQZitYj6tcS dmcUjuCO4iBIJykvutw002BzFe z4omEKIraDNbNKaeUEL8O46m t9S7KROhDCXpLUV3bTL8oP5jkF lnbjogbGVmdDsgdmVydGljYWwt CGgnP063CEBltQhtUgZvkHDl OjwvdGQ+DE89ng90L5TnNicrCv g3KMKmPKL5wSG0pU4fQGQpSJmk l4C3zAF6U2XzpmBpgz0hw6iz YXBz (more content not included)... Normal [facility] Screenson 04-16-2022 Screens [id number]#[id number]:127 Normal [facility] Screens [id number]#[id number]:127 Normal [facility] Ambulatory Visit Summaryon 0 04-15-2022 Ambulatory Visit Summary CHICO BAKER :1940 Visit Date:04/15/2022 Ambulatory Visit Instructions Your Diagnosis Penile rash Prostatitis Microhematuria BPH with obstruction/lower urinary tract symptoms History of kidney stones Tests Performed Urnls Dip Stick Auto w/o Microscopy POC [address]3839 CT Abdomen/Pelvis w/o Contrast -- Results Pending -- Please visit your patient portal for your results or contact your primary care physician. Your Care Team Attending Physician - Mo [...] Hassan MD Where: [facility] Carlos Faulkner [facility] Patient Educationon 04-15-19 23 Patient Education Infectious [...] Follow these instructions at home: ? Take udjt-uic-fqisrdg and prescription medicines only as told by [...] 05/07/2018 Docum (more content not included)... Normal [facility] URINALYSISOrdered By: Kirstie sanchez on 04-15-2022 [...] Interpretation Code Negative [facility] UA Auto SS Tresckow.plasma/Tresckow .RBC (Bld) [Mass ratio] 21-30 /HPF Invalid Interpretation Code 0-3/HPF [facility] UA Auto SS Mucus Ql (Urine sed) Trace (04/15/22 12:14 PM) Normal [facility] UA Auto SS Nitrite Ql (U) Negative (04/15/22 12:14 PM) Normal Negative [facility] UA Auto SS pH (U) 6.0 *NA* (04/15/22 12:14 PM) Invalid Interpretation Code 5.0 - 9.0 [facility] UA Auto SS Protein (U) [Mass/Vol] Negative (04/15/22 12:14 PM) Normal Negative [facility] UA Auto SS Specific gravity (U) [Rel density] >=1.030 *NA* (04/15/22 12:14 PM) Invalid Interpretation Code 1.005 - 1.030 [facility] UA Auto SS UA Spec Desc Random Urine (04/15/22 12:14 PM) Normal [facility] UA Auto SS Urobilinogen Qn (U) 0.7942251 {Nikki'U}/dL Normal 0.0 - 1.0 EU/dL [facility] UA Auto SS WBC Auto Ql (U) 1+ *ABN* (04/15/22 12:14 PM) Invalid Interpretation Code Negative [facility] UA Auto SS WBC LM.HPF (Urine sed) [#/Area] 0-5 /HPF Normal 0-5/HPF [facility] UA Auto SS Urinalysison 04-15-2022 Bacteria LM Ql (Urine sed) TRACE Normal Trace [facility] Comment on above: Performed By: #### 1 [id number] ####[facility] [address] [place] [address] Bilirubin Ql (U) Negative Normal Negative [facility] Comment on above: Performed By: #### 1 [id number] ####[facility] [address] [place] [address] Calcium oxalate crystals LM Ql (Urine sed) Present Normal [facility] Comment on above: Performed By: #### 1 [id number] ####[facility] [address] [place] [address] Clarity (U) CLEAR Normal Clear [facility] Comment on above: Performed By: #### 1 [id number] ####[facility] [address] [place] [address] Color (U) YELLOW Normal Yellow [facility] Comment on above: Performed By: #### 1 [id number] ####[place] [address] [address] Epithelial cells.squamous LM.HPF (Urine sed) [#/Area] 0-2 Normal 0-2 [facility] Comment on above: Performed By: #### 1 [id number] ####[address] [address] Glucose Test strip (U) [Mass/Vol] Negative Normal Negative [facility] Comment on above: Performed By: #### 1 [id number] ####[address] [address] Hemoglobin Ql (U) 3+ Abnormal Negative [facility] Comment on above: Performed By: #### 1 [id number] ####[address] [address] Ketones (U) [Mass/Vol] TRACE Abnormal Negative [facility] Comment on above: Performed By: #### 1 [id number] ####[address] [address] Tresckow.plasma/Tresckow .RBC (Bld) [Mass ratio] 21-30 Abnormal 0-3 [facility] Comment on above: Performed By: #### 1 [id number] ####[address] [address] Mucus Ql (Urine sed) TRACE Normal [facility] Comment on above: Performed By: #### 1 [id number] ####[address] [address] Nitrite Ql (U) Negative Normal Negative [facility] Comment on above: Performed By: #### 1 [id number] ####[address] [address] pH (U) 6.0 [pH] Invalid Interpretation Code 5.0-9.0 [facility] Comment on above: Performed By: #### 1 [id number] ####[address] [address] Protein (U) [Mass/Vol] Negative Normal Negative [facility] Comment on above: Performed By: #### 1 [id number] ####[facility] [address] [place] [address] Specific gravity (U) [Rel density] >=1.030 Invalid Interpretation Code 1.005-1.030 [facility] Comment on above: Performed By: #### 1 [id number] ####[facility] [address] [place] [address] Type of Urine collection method Random Urine Normal [facility] Comment on above: Performed By: #### 1 [id number] ####[facility] [address] [place] [address] Urobilinogen Qn (U) 0.2 {Nikki'U}/dL Normal 0.0-1.0 [facility] Comment on above: Performed By: #### 1 [id number] ####[address] [address] WBC Auto Ql (U) 1+ Abnormal Negative [facility] Comment on above: Performed By: #### 1 [id number] ####[facility] [address] [place] [address] WBC LM.HPF (Urine sed) [#/Area] 0-5 Normal 0-5 [facility] Comment on above: Performed By: #### 1 [id number] ####[facility] [address] [place] [address] Urology Office/Clinic Noteon 04-15-2022 Urology Office/Clinic Note [...] allergy prep. Pt having scan done at [facility] in May for aneurysm, will give [...] Medical Histo (more content not included)... Normal [facility] Comment on above: Result Comment: Elec [...] Interpretation Code Negative [facility] UA Auto SS Tresckow.plasma/Tresckow .RBC (Bld) [Mass ratio] 4-20 /HPF Normal 0-3/HPF [facility] UA Auto SS Nitrite Ql (U) Negative (02/11/22 10:38 AM) Normal Negative [facility] UA Auto SS pH (U) 5.5 *NA* (02/11/22 10:38 AM) Invalid Interpretation Code 5.0 - 9.0 [facility] UA Auto SS Protein (U) [Mass/Vol] Negative (02/11/22 10:38 AM) Normal Negative [facility] UA Auto SS Specific gravity (U) [Rel density] 1.020 *NA* (02/11/22 10:38 AM) Invalid Interpretation Code 1.005 - 1.030 [facility] UA Auto SS UA Spec Desc Random Urine (02/11/22 10:38 AM) Normal [facility] UA Auto SS Urobilinogen Qn (U) 0.7961936 {Nikki'U}/dL Normal 0.0 - 1.0 EU/dL [facility] UA Auto SS WBC Auto Ql (U) 1+ *ABN* (02/11/22 10:38 AM) Invalid Interpretation Code Negative [facility] UA Auto SS WBC LM.HPF (Urine sed) [#/Area] 0-5 /HPF Normal 0-5/HPF [facility] UA Auto SS Basic Metabolic Panelon 12-0 Anion gap [Moles/Vol] 10.4 mmol/L Normal 6.0-15.0 [facility] Comment on above: Performed By: #### C BC, BMP #### [facility] [address] [place] [address] [place] Calcium [Mass/Vol] 8.4 mg/dL Normal 8.2-10.2 [facility] Comment on above: Performed By: #### C BC, BMP #### [facility] [address] [place] [address] [place] Chloride [Moles/Vol] 101 mmol/L Normal 95-114 [facility] Comment on above: Performed By: #### C BC, BMP #### [facility] [address] [place] [address] [place] CO2 [Moles/Vol] 28.2 mmol/L Normal 22.0-30.0 [facility] Comment on above: Performed By: #### C BC, BMP #### [facility] [address] [place] [address] [place] Creatinine [Mass/Vol] 0.94 mg/dL Normal 0.64-1.27 [facility] Comment on above: Performed By: #### C BC, BMP #### [place] [address] [place] Creatinine Clr Calc Pharmacy 57.50 [facility] Comment on above: Result Comment: PERF ORMED BY: [place] [address] PATHOLOGIST JACK SPOOLER TENDER ZENA CASTELLON M.D. Performed By: #### C BC, BMP #### [address] Estimated GFR ( Jojo > 60 [facility] Comment on above: Result Comment: GFR estimated reference range: According to KDOQI guidelines, <60 ml/min/1.73m2 is sufficient to diagnose a patient with chronic kidney disease. Performed By: #### C BC, BMP #### [address] Estimated GFR (Non- Am > 60 [facility] Comment on above: Performed By: #### C BC, BMP #### [address] Glucose [Mass/Vol] 109 mg/dL High 70-100 [facility] Comment on above: Result Comment: [place] om Glucose Reference Range is dependent on time and content of last meal. Glucose of more than 200 mg/dL in a nonstressed, ambulatory subject supports the diagnosis of Diabetes Mellitus. ADA recommended reference range Performed By: #### C BC, BMP #### [address] Potassium [Moles/Vol] 4.6 mmol/L Normal 3.5-5.1 [facility] Comment on above: Performed By: #### C BC, BMP #### [place] [address] [place] Sodium [Moles/Vol] 135 mmol/L Low 136-146 [facility] Comment on above: Performed By: #### C BC, BMP #### [address] Urea nitrogen [Mass/Vol] 11 mg/dL Normal 9-23 [facility] Comment on above: Performed By: #### C SEAN, BMP #### [facility] [address] [place] [address] [place] Basophils Auto (Bld) [#/Vol] Ordered By: Raul Quan on 02-05-2022 Basophils (Bld) [#/Vol] 0.1 10*3/uL 0.0-0.2 [facility] Basophils/100 WBC Auto (Bld) Ordered By: Raul Quan on 02-05-2022 Basophils/100 WBC (Bld) 0.6 % . [facility] Complete Blood Count Auto Di ffon 02-05-2022 Basophils (Bld) [#/Vol] 0.1 10*3/uL Normal 0.0-0.2 [facility] Comment on above: Result Comment: PERF ORMED BY: [place] [address] PATHOLOGIST JACK SPOOLER TENDER ZENA CASTELLON M.D. Performed By: #### C SEAN, BMP #### [address] Basophils/100 WBC (Bld) 0.6 % Normal . [facility] Comment on above: Performed By: #### C SEAN, BMP #### [address] Eosinophils (Bld) [#/Vol] 0.1 10*3/uL Normal 0.0-0.45 [facility] Comment on above: Performed By: #### C SEAN, BMP #### [address] Eosinophils/100 WBC (Bld) 0.7 % Normal . [facility] Comment on above: Performed By: #### C BC, BMP #### [address] Erythrocyte distribution width (RBC) [Ratio] 13.8 % Normal 12.0-14.8 [facility] Comment on above: Performed By: #### C SEAN, BMP #### [place] [address] [place] Hematocrit (Bld) [Volume fraction] 34.6 % Low 38.8-50.0 [facility] Comment on above: Performed By: #### C BC, BMP #### [address] Hemoglobin (Bld) [Mass/Vol] 11.4 g/dL Low 13.0-17.0 [facility] Comment on above: Performed By: #### C BC, BMP #### [address] Lymphocytes (Bld) [#/Vol] 1.5 10*3/uL Normal 1.00-4.8 [facility] Comment on above: Performed By: #### C BC, BMP #### [address] Lymphocytes/100 WBC (Bld) 14.4 % Normal . [facility] Comment on above: Performed By: #### C BC, BMP #### [address] MCH (RBC) [Entitic mass] 30.1 pg Normal 27.5-35.2 [facility] Comment on above: Performed By: #### C BC, BMP #### [address] MCV (RBC) [Entitic vol] 91.6 fL Normal 83.5-101 [facility] Comment on above: Performed By: #### C BC, BMP #### [address] Mean Corpuscular HGB Conc 32.9 g/dL Normal 32.5-35.6 [facility] Comment on above: Performed By: #### C BC, BMP #### [address] Monocytes (Bld) [#/Vol] 1.5 10*3/uL High 0.0-0.8 [facility] Comment on above: Performed By: #### C BC, BMP #### [address] Monocytes/100 WBC (Bld) 14.8 % Normal . [facility] Comment on above: Performed By: #### C SEAN, BMP #### [facility] [address] Neutrophils (Bld) [#/Vol] 7.1 10*3/uL Normal 1.8-7.7 [facility] Comment on above: Performed By: #### C BC, BMP #### [facility] [address] Neutrophils/100 WBC (Bld) 69.5 % Normal . [facility] Comment on above: Performed By: #### C SEAN, BMP #### [facility] [address] NRBC% 0.1 /100{WBC} Normal 0-0.5 [facility] Comment on above: Performed By: #### C SEAN, BMP #### [facility] [address] Platelet mean volume (Bld) [Entitic vol] 7.9 fL Normal 6.6-10.1 [facility] Comment on above: Performed By: #### C SEAN, BMP #### [facility] [address] [place] [address] [place] Platelets (Bld) [#/Vol] 142 10*3/uL Significant change down 150-450 [facility] Comment on above: Performed By: #### C SEAN, BMP #### [facility] [address] [place] [address] [place] RBC (Bld) [#/Vol] 3.77 10*6/uL Low 3.90-5.60 [facility] Comment on above: Performed By: #### C SEAN, BMP #### [facility] [address] [place] [address] [place] WBC (Bld) [#/Vol] 10.3 10*3/uL Normal 4.1-10.5 [facility] Comment on above: Performed By: #### C BC, BMP #### [facility] [address] [place] [address] [place] Creatinine and Glomerular fi ltration rate.predicted panel (S/P/Bld)Ordered By: Raul Quan on 02-05-2022 Creatinine [Mass/Vol] 0.94 mg/dL 0.64-1.27 [facility] Eosinophils Auto (Bld) [#/Vo l]Ordered By: Raul Quan on 02-05-2022 Eosinophils (Bld) [#/Vol] 0.1 10*3/uL 0.0-0.45 [facility] Eosinophils/100 WBC Auto (Bl d)Ordered By: Raul Quan on 02-05-2022 Eosinophils/100 WBC (Bld) 0.7 % . [facility] Erythrocyte distribution wid th Auto (RBC) [Ratio]Ordered By: Raul Quan on 02-05-2022 Erythrocyte distribution width (RBC) [Ratio] 13.8 % 12.0-14.8 [facility] Estimated glomerular filtrat ion rate (GFR) non- AmericanOrdered By: Raul Quan on 02-05-2022 GFR/1.73 sq M.predicted among non-blacks MDRD (S/P/Bld) [Vol rate/Area] > 60 mL/Min [facility] Hematocrit Auto (Bld) [Volum e fraction]Ordered By: Raul Quan on 02-05-2022 Hematocrit (Bld) [Volume fraction] 34.6 % 38.8-50.0 [facility] Hemoglobin [Mass/volume] in BloodOrdered By: Raul Quan on 02-05-2022 Hemoglobin (Bld) [Mass/Vol] 11.4 g/dL 13.0-17.0 [facility] Leukocytes [#/volume] correc shyann for nucleated erythrocytes in Blood by Automated counOrdered By: Raul Quan on 02-05-2022 WBC corrected for nucl RBC Auto (Bld) [#/Vol] 10.3 10*3/uL 4.1-10.5 [facility] Lymphocytes Auto (Bld) [#/Vo l]Ordered By: Raul Quan on 02-05-2022 Lymphocytes (Bld) [#/Vol] 1.5 10*3/uL 1.00-4.8 [facility] Lymphocytes/100 WBC Auto (Bl d)Ordered By: Raul Quan on 02-05-2022 Lymphocytes/100 WBC (Bld) 14.4 % . [facility] MCH Auto (RBC) [Entitic mass ]Ordered By: Raul Quan on 02-05-2022 MCH (RBC) [Entitic mass] 30.1 pg 27.5-35.2 [facility] MCHC Auto (RBC) [Mass/Vol]Or dered By: Raul Quan on 02-05-2022 MCHC (RBC) [Mass/Vol] 32.9 g/dL 32.5-35.6 [facility] MCV Auto (RBC) [Entitic vol] Ordered By: Raul Quan on 02-05-2022 MCV (RBC) [Entitic vol] 91.6 fL 83.5-101 [facility] Monocytes Auto (Bld) [#/Vol] Ordered By: Raul Quan on 02-05-2022 Monocytes (Bld) [#/Vol] 1.5 10*3/uL 0.0-0.8 [facility] Monocytes/100 WBC Auto (Bld) Ordered By: Raul Quan on 02-05-2022 Monocytes/100 WBC (Bld) 14.8 % . [facility] Neutrophils Auto (Bld) [#/Vo l]Ordered By: Raul Quan on 02-05-2022 Neutrophils (Bld) [#/Vol] 7.1 10*3/uL 1.8-7.7 [facility] Neutrophils/100 WBC Auto (Bl d)Ordered By: Raul Quan on 02-05-2022 Neutrophils/100 WBC (Bld) 69.5 % . [facility] No Panel InformationOrdered By: Raul Quan on 02-05-2022 Estimated GFR () > 60 mL/Min [facility] Comment on above: GFR estimated refere nce range: According to KDOQI guidelines, <60 ml/min/1.73m2 is sufficient to diagnose a patient with chronic kidney disease. Pharmacy Creatinine Clearance (Chem 57.50 [facility] Nucleated erythrocytes [Pres ence] in Blood by Automated countOrdered By: Raul Quan on 02-05-2022 Nucleated RBC Auto Ql (Bld) 0.1 /100{WBC} 0-0.5 [facility] Platelet mean volume Auto (B ld) [Entitic vol]Ordered By: Raul Quan on 02-05-2022 Platelet mean volume (Bld) [Entitic vol] 7.9 fL 6.6-10.1 [facility] Platelets Auto (Bld) [#/Vol] Ordered By: Raul Quan on 02-05-2022 Platelets (Bld) [#/Vol] 142 10*3/uL 150-450 [facility] Comment on above: Delta: 198 on -824 RBC Auto (Bld) [#/Vol]Ordere d By: Raul Quan on 02-05-2022 RBC (Bld) [#/Vol] 3.77 10*6/uL 3.90-5.60 [facility] Serum or plasma anion gap de terminationOrdered By: Raul Quan on 02-05-2022 Anion gap [Moles/Vol] 10.4 mmol/L 6.0-15.0 [facility] Serum or plasma calcium richy urement (mass/volume)Ordered By: Raul Quan on 02-05-2022 Calcium [Mass/Vol] 8.4 mg/dL 8.2-10.2 [facility] Serum or plasma chloride young surement (moles/volume)Ordered By: Raul Quan on 02-05-2022 Chloride [Moles/Vol] 101 mmol/L 95-114 [facility] Serum or plasma glucose richy urement (mass/volume)Ordered By: Raul Quan on 02-05-2022 Glucose [Mass/Vol] 109 mg/dL 70-100 [facility] Comment on above: ADA recommended refe rence rangeRandom Glucose Reference Range is dependent on time and content of last meal. Glucose of more than 200 mg/dL in a nonstressed, ambulatory subject supports the diagnosis of Diabetes Mellitus. Serum or plasma potassium me asurement (moles/volume)Ordered By: Raul Quan on 02-05-2022 Potassium [Moles/Vol] 4.6 mmol/L 3.5-5.1 [facility] Serum or plasma sodium measu rement (moles/volume)Ordered By: Raul Quan on 02-05-2022 Sodium [Moles/Vol] 135 mmol/L 136-146 [facility] Serum or plasma total carbon dioxide measurement (moles/volume)Ordered By: Raul Quan on 02-05-2022 CO2 [Moles/Vol] 28.2 mmol/L 22.0-30.0 [facility] Serum or plasma urea nitroge n measurement (mass/volume)Ordered By: Raul Quan on 02-05-2022 Urea nitrogen [Mass/Vol] 11 mg/dL 9-23 [facility] WBC Auto (Bld) [#/Vol]Ordere d By: Raul Quan on 02-05-2022 WBC (Bld) [#/Vol] 10.3 10*3/uL 4.1-10.5 [facility] Antibody Identificationon Antibody Identification COLD Normal [facility] Basic Metabolic Panelon 01-08 Anion gap [Moles/Vol] 13.9 mmol/L Normal 6.0-15.0 [facility] Comment on above: Performed By: #### C SEAN, BMP #### [facility] [address] [place] [address] [place] Calcium [Mass/Vol] 9.0 mg/dL Normal 8.2-10.2 [facility] Comment on above: Performed By: #### C BC, BMP #### [facility] [address] [place] [id number] [place] Chloride [Moles/Vol] 101 mmol/L Normal 95-114 [facility] Comment on above: Performed By: #### C BC, BMP #### [facility] [address] [place] [address] [place] CO2 [Moles/Vol] 24.4 mmol/L Normal 22.0-30.0 [facility] Comment on above: Performed By: #### C BC, BMP #### [facility] [address] Creatinine [Mass/Vol] 0.81 mg/dL Normal 0.64-1.27 [facility] Comment on above: Performed By: #### C BC, BMP #### [place] [address] [place] Creatinine Clr Calc Pharmacy 66.73 [facility] Comment on above: Result Comment: PERF ORMED BY: [place] [address] PATHOLOGIST JACK SPOOLER TENDER ZENA CASTELLON M.D. Performed By: #### C BC, BMP #### [address] Estimated GFR ( Jojo > 60 [facility] Comment on above: Result Comment: GFR estimated reference range: According to KDOQI guidelines, <60 ml/min/1.73m2 is sufficient to diagnose a patient with chronic kidney disease. Performed By: #### C BC, BMP #### [address] Estimated GFR (Non- Am > 60 [facility] Comment on above: Performed By: #### C BC, BMP #### [address] Glucose [Mass/Vol] 124 mg/dL High 70-100 [facility] Comment on above: Result Comment: [place] Glucose Reference Range is dependent on time and content of last meal. Glucose of more than 200 mg/dL in a nonstressed, ambulatory subject supports the diagnosis of Diabetes Mellitus. ADA recommended reference range Performed By: #### C BC, BMP #### [address] Potassium [Moles/Vol] 4.3 mmol/L Normal 3.5-5.1 [facility] Comment on above: Performed By: #### C BC, BMP #### [address] Sodium [Moles/Vol] 135 mmol/L Low 136-146 [facility] Comment on above: Performed By: #### C BC, BMP #### [address] Urea nitrogen [Mass/Vol] 14 mg/dL Normal 9-23 [facility] Comment on above: Performed By: #### C BC, BMP #### [address] Blood Bank Pathologist Revie won 02-04-2022 Blood Bank Pathologist Review Sent to Pathology Normal [facility] Comment on above: Result Comment: PERF ORMED BY: [place] [address] PATHOLOGIST JACK SPOOLER TENDER ZENA CASTELLON M.D. Complete Blood Count Auto Di ffon 02-04-2022 Basophils (Bld) [#/Vol] 0.1 10*3/uL Normal 0.0-0.2 [facility] Comment on above: Result Comment: PERF ORMED BY: [place] [address] PATHOLOGIST JACK SPOOLER TENDER ZENA CASTELLON M.D. Performed By: #### C BC #### [address] Basophils/100 WBC (Bld) 0.6 % Normal . [facility] Comment on above: Performed By: #### C BC #### [address] Eosinophils (Bld) [#/Vol] 0.1 10*3/uL Normal 0.0-0.45 [facility] Comment on above: Performed By: #### C BC #### [address] Eosinophils/100 WBC (Bld) 0.9 % Normal . [facility] Comment on above: Performed By: #### C BC #### [address] Erythrocyte distribution width (RBC) [Ratio] 13.7 % Normal 12.0-14.8 [facility] Comment on above: Performed By: #### C BC #### [facility] [address] Hematocrit (Bld) [Volume fraction] 37.5 % Low 38.8-50.0 [facility] Comment on above: Performed By: #### C BC #### [facility] [address] Hemoglobin (Bld) [Mass/Vol] 12.4 g/dL Low 13.0-17.0 [facility] Comment on above: Performed By: #### C BC #### [facility] [address] Lymphocytes (Bld) [#/Vol] 1.5 10*3/uL Normal 1.00-4.8 [facility] Comment on above: Performed By: #### C BC #### [address] Lymphocytes/100 WBC (Bld) 16.4 % Normal . [facility] Comment on above: Performed By: #### C BC #### [facility] [address] MCH (RBC) [Entitic mass] 30.2 pg Normal 27.5-35.2 [facility] Comment on above: Performed By: #### C BC #### [address] MCV (RBC) [Entitic vol] 91.5 fL Normal 83.5-101 [facility] Comment on above: Performed By: #### C BC #### [address] Mean Corpuscular HGB Conc 33.0 g/dL Normal 32.5-35.6 [facility] Comment on above: Performed By: #### C BC #### [address] Monocytes (Bld) [#/Vol] 1.1 10*3/uL High 0.0-0.8 [facility] Comment on above: Performed By: #### C BC #### [facility] [address] Monocytes/100 WBC (Bld) 12.0 % Normal . [facility] Comment on above: Performed By: #### C BC #### [facility] [address] Neutrophils (Bld) [#/Vol] 6.5 10*3/uL Normal 1.8-7.7 [facility] Comment on above: Performed By: #### C BC #### [facility] [address] Neutrophils/100 WBC (Bld) 70.1 % Normal . [facility] Comment on above: Performed By: #### C BC #### [address] NRBC% 0.0 /100{WBC} Normal 0-0.5 [facility] Comment on above: Performed By: #### C BC #### [facility] [address] Platelet mean volume (Bld) [Entitic vol] 8.5 fL Normal 6.6-10.1 [facility] Comment on above: Performed By: #### C BC #### [place] [address] [place] Platelets (Bld) [#/Vol] 198 10*3/uL Normal 150-450 [facility] Comment on above: Performed By: #### C BC #### [place] [address] [place] RBC (Bld) [#/Vol] 4.10 10*6/uL Normal 3.90-5.60 [facility] Comment on above: Performed By: #### C BC #### [place] [address] [place] WBC (Bld) [#/Vol] 9.3 10*3/uL Normal 4.1-10.5 [facility] Comment on above: Performed By: #### C BC #### [address] [place] [address] [facility] Direct [place] 02-04-2022 Polyspecific AHG Negative Normal [facility] [place] 02-04-2022 L ------ Specimen: [id number] Received: 02/04/22 Status: JUSTINA Lozano Num: [id number] Spec Type: Impression Subm Dr: Rocio Mac DO Tissues: PATHBBK Procedures: PATHREVIEW Age/ Patient Sex Location Account Attending Physician Chico Baker 81/M 4N [id number] Raul Quan MD SPEC NUM: [id number] RECD: 02/04/22 STATUS: JUSTINA LORY NUM: [id number] SHYANN: 02/04/22 DR: Rocio Mac DO ENTERED: 02/04/[address]: SPEC TYPE: Impression DEPT: CT ORDERED: PATHREVIEW ORDERED: PATHREVIEW Blood Bank Results Date Time Test Result Flag (u) Normal Range 02/04/22824 Ab Screen POSITIVE AB ID 02/04/22824 Cold Ab Pathologist Review A cold antibody with no apparent specificity was detectable in the serum at 22C and colder. Due to the low temperature agglutination characteristics, these antibodies are considered clinically insignificant. Specimen: Received: 02/04/22 Status: JUSTINA Lory Num: [id number] Spec Type: Impression Subm Dr: Rocio Mac DO Tissues: PATHBBK Procedures: PATHREVIEW Patient: Chico Baker [id number] (Continued) Signed (signature on file) Judah Alvarado MD 02/04/22 1458 Normal [facility] Type and Screenon 02-04-2022 ABO and Rh group Nom (Bld) Blood group A Rh(D) positive Normal [facility] Comment on above: Result Comment: PERF ORMED BY: [facility] [address] [place] [address] PATHOLOGIST JACK SPOOLER TENDER ZENA CASTELLON M.D. [facility]19 [facility]on 01-07 SARS-CoV-2 (COVID-19) RNA JESSIE+probe Ql (Unsp spec) Not detected Normal NOT DETECTED [facility] Comment on above: Result Comment: This test is not yet approved or cleared by the [place] FDA. When there are no FDA-approved or cleared tests available, and other criteria are met, FDA can make tests available under an emergency access mechanism called an Emergency Use Authorization (EUA). The EUA for this test is supported by the [place] [employer] of Health and Human Service's (HHS's) declaration [...] consistent with SARS-CoV-2. Performed By: #### [facility] #### [facility] [address] [place], [place] [id number] Dr. Jodi Oglesby US carotid doppler BIon 11-1 US carotid doppler BI [facility] [place] [address] [place] [address] Ultrasound Report Signed Patient: Chico Baker MR#: [id number] : 1940 Acct:[id number] Age/Sex: 81 / M ADM Date: 01/20/22 Loc: [facility] Room: Type: [facility] Attending Dr: Tamar Perea CARTOGRAPHY SUPERVISOR-C Ordering Provider: Tamar Perea APRN Date of [...] Raul Quan M.D.01/20/2022 11:32 AM Dictation Location: [place] [address] Tech: Aby Mueller Transcribed By: ALEX 01/20/221131 Dictated By: Raul Quan MD 01/20/221129 Signed By: 01/20/221131 [facility] CBC AUTO DIFFon 12-08-2021 BASO # 0.1 103/ul Normal 0.0-0.1 [facility] Comment on above: Performed By: #### D ATA1C #### [facility] [address] [place] [address] [address] Jodi Oglesby Basophils/100 WBC (Bld) 0.5 % Normal 0.2-2.0 [facility] Comment on above: Performed By: #### D ATA1C #### [facility] [address] [place] [address] [address] Jodi Oglesby EO # 0.1 103/ul Normal 0.0-0.7 [facility] Comment on above: Performed By: #### D ATA1C #### [facility] [address] [place] [address] [address] Jodi Oglesby Eosinophils/100 WBC (Bld) 1.4 % Normal 0.9-7.0 [facility] Comment on above: Performed By: #### D ATA1C #### [facility] [address] [place] [address] [address] Jodi Oglesby Erythrocyte distribution width (RBC) [Ratio] 13.0 % Normal 11.0-15.0 [facility] Comment on above: Performed By: #### D ATA1C #### [facility] [address] [place] [address] [address] Jodi Oglesby Hematocrit (Bld) [Volume fraction] 36.1 % Critically low 42.0-54.0 [facility] Comment on above: Performed By: #### D ATA1C #### [facility] [address] [place] [address] [address] Jodi Oglesby Hemoglobin (Bld) [Mass/Vol] 11.2 g/dL Critically low 14.0-18.0 [facility] Comment on above: Performed By: #### D ATA1C #### [facility] [address] [place] [address] [address] Jodi Oglesby IG # 0.04 10e3/ul Critically high 0.00-0.03 [facility] Comment on above: Performed By: #### D ATA1C #### [facility] [address] [place] [address] Dr. Jodi Oglesby IG % 0.4 % Normal 0.0-0.5 [facility] Comment on above: Performed By: #### D ATA1C #### [facility] [address] [place] [address] Dr. Jodi Oglesby LYMPH # 1.8 103/ul Normal 1.2-3.8 [facility] Comment on above: Performed By: #### D ATA1C #### [facility] [address] [place] [address] Dr. Jodi Oglesby Lymphocytes/100 WBC (Bld) 17.2 % Critically low 20.5-60.0 [facility] Comment on above: Performed By: #### D ATA1C #### [facility] [address] [place] [address] Dr. Jodi Oglesby MANUAL DIFF REQ NO Normal [facility] Comment on above: Performed By: #### D ATA1C #### [facility] [address] [place] [address] Dr. Jodi Oglesby MCH (RBC) [Entitic mass] 30.4 pg Normal 25.9-34.0 [facility] Comment on above: Performed By: #### D ATA1C #### [facility] [address] [place], [place] [id number] Dr. Jodi Oglesby MCHC (RBC) [Mass/Vol] 31.0 g/dL Normal 29.9-35.2 [facility] Comment on above: Performed By: #### D ATA1C #### [facility] [address] [place] [address] [address] Jodi Oglesby MCV (RBC) [Entitic vol] 98.1 fL Critically high 80.0-94.0 [facility] Comment on above: Performed By: #### D ATA1C #### [facility] [address] [place] [address] [address] Jodi Oglesby MONO # 1.0 103/ul Critically high 0.3-0.8 [facility] Comment on above: Performed By: #### D ATA1C #### [facility] [address] [place] [address] [address] Jodi Oglesby Monocytes/100 WBC (Bld) 9.8 % Normal 1.7-12.0 [facility] Comment on above: Performed By: #### Chavez ATA1C #### [facility] [address] [place] [address] [address] Jodi Oglesby NEUT # 7.3 103/ul Critically high 1.4-6.5 [facility] Comment on above: Performed By: #### D ATA1C #### [facility] [address] [place] [address] Dr. Jodi Oglesby Neutrophils/100 WBC (Bld) 70.7 % Normal 43.0-75.0 [facility] Comment on above: Performed By: #### D ATA1C #### [facility] [address] [place] [address] [address] Jodi Oglesby Platelet mean volume (Bld) [Entitic vol] 9.1 fL Critically low 9.5-13.5 [facility] Comment on above: Performed By: #### D ATA1C #### [facility] [address] [place] [address] [address] Jodi Oglesby PLT 214 103/ul Normal 150-450 [facility] Comment on above: Performed By: #### D ATA1C #### [facility] [address] [place] [address] Dr. Jodi Oglesby RBC 3.68 106/ul Critically low 4.70-6.10 [facility] Comment on above: Performed By: #### D ATA1C #### [facility] [address] [place] [address] Dr. Jodi Oglesby WBC 10.3 103/ul Normal 4.0-11.0 [facility] Comment on above: Performed By: #### D ATA1C #### [facility] [address] [place] [address] Dr. Jodi Oglesby PROF CHEM 8 (BAS METB)on Anion gap [Moles/Vol] 9.7 mmol/L Normal [facility] Comment on above: Performed By: #### C BC #### [facility] [address] [place] [address] Dr. Jodi Oglesby Calcium [Mass/Vol] 8.9 mg/dL Normal 8.5-10.1 [facility] Comment on above: Performed By: #### C BC #### [facility] [address] [place] [address] Dr. Jodi Oglesby Chloride [Moles/Vol] 102 mmol/L Normal 98-107 [facility] Comment on above: Performed By: #### C BC #### [facility] [address] [place] [address] Dr. Jodi Oglesby CO2 [Moles/Vol] 31.0 mmol/L Normal 21.0-32.0 [facility] Comment on above: Performed By: #### C BC #### [facility] [address] [place] [address] Dr. Jodi Oglesby Creatinine [Mass/Vol] 0.85 mg/dL Normal 0.70-1.30 [facility] Comment on above: Performed By: #### C BC #### [facility] [address] [place] [address] Dr. Jodi Oglesby EGFR-AF HONDURAN >60 Normal >=60 [facility] Comment on above: Performed By: #### C BC #### [facility] [address] [place] [address] Dr. Jodi Oglesby EGFR-NON AF HONDURAN >60 Normal >=60 [facility] Comment on above: Performed By: #### C BC #### [facility] [address] [place] [address] Dr. Jodi Oglesby Glucose [Mass/Vol] 106 mg/dL Normal 74-106 [facility] Comment on above: Performed By: #### C BC #### [facility] [address] [place] [address] Dr. Jodi Oglesby Potassium [Moles/Vol] 4.7 mmol/L Normal 3.5-5.1 [facility] Comment on above: Performed By: #### C BC #### [facility] [address] [place] [address] Dr. Jodi Oglesby Sodium [Moles/Vol] 138 mmol/L Normal 136-145 [facility] Comment on above: Performed By: #### C BC #### [facility] [address] [place] [address] Dr. Jodi Oglesby Urea nitrogen [Mass/Vol] 14.0 mg/dL Normal 7.0-18.0 [facility] Comment on above: Performed By: #### C BC #### [facility] [address] [place] [address] Dr. Jodi Oglesby Urea nitrogen/Creatinine [Mass ratio] 16.5 mg/mg Normal [facility] Comment on above: Performed By: #### C BC #### [facility] [address] [place] [address] Dr. Jodi Oglebsy XR CHEST 2 Von 12-08-2021 XR CHEST [...] ROCIO RICARDO Date: 2021-12-08 16:20 Normal [facility] Covid-19 PCR (CVD[facility])on 11-07 SARS-CoV-2 (COVID-19) RNA JESSIE+probe Ql (Unsp spec) Not detected Normal NOT DETECTED [facility] Comment on above: Result Comment: This test is not yet approved or cleared by the [place] FDA. When there are no FDA-approved or cleared tests available, and other criteria are met, FDA can make tests available under an emergency access mechanism called an Emergency Use Authorization (EUA). The EUA for this test is supported by the [place] of Health and Human Service's (HHS's) declaration [...] SARS-CoV-2. Performed By: #### C VDTBH #### [facility] [address] [place] [address] Dr. Jodi Oglesby CBC AUTO DIFFon 11-11-2021 BASO # 0.1 103/ul Normal 0.0-0.1 [facility] Comment on above: Performed By: #### C BC #### [facility] [address] [place] [address] Dr. Jodi Oglesby Basophils/100 WBC (Bld) 0.5 % Normal 0.2-2.0 [facility] Comment on above: Performed By: #### C BC #### [facility] [address] [place] [address] Dr. Jodi Oglesby EO # 0.2 103/ul Normal 0.0-0.7 [facility] Comment on above: Performed By: #### C BC #### [facility] [address] [place] [address] Dr. Jodi Oglesby Eosinophils/100 WBC (Bld) 1.9 % Normal 0.9-7.0 [facility] Comment on above: Performed By: #### C BC #### [facility] [address] [place] [address] Dr. Jodi Oglesby Erythrocyte distribution width (RBC) [Ratio] 13.6 % Normal 11.0-15.0 [facility] Comment on above: Performed By: #### C BC #### [facility] [address] [place] [address] Dr. Jodi Oglesby Hematocrit (Bld) [Volume fraction] 28.6 % Critically low 42.0-54.0 [facility] Comment on above: Performed By: #### C BC #### [facility] [address] [place] [address] Dr. Jodi Oglesby Hemoglobin (Bld) [Mass/Vol] 9.4 g/dL Critically low 14.0-18.0 [facility] Comment on above: Performed By: #### C BC #### [facility] [address] [place] [address] Dr. Jodi Oglesby IG # 0.08 10e3/ul Critically high 0.00-0.03 [facility] Comment on above: Performed By: #### C BC #### [facility] [address] [place] [address] Dr. Jodi Oglesby IG % 0.8 % Critically high 0.0-0.5 [facility] Comment on above: Performed By: #### C BC #### [facility] [address] [place] [address] Dr. Jodi Oglesby LYMPH # 1.3 103/ul Normal 1.2-3.8 [facility] Comment on above: Performed By: #### C BC #### [facility] [address] [place] [address] Dr. Jodi Oglesby Lymphocytes/100 WBC (Bld) 13.0 % Critically low 20.5-60.0 [facility] Comment on above: Performed By: #### C BC #### [facility] [address] [place] [address] Dr. Jodi Oglesby MANUAL DIFF REQ NO Normal [facility] Comment on above: Performed By: #### C BC #### [facility] [address] [place] [address] Dr. Jodi Oglesby MCH (RBC) [Entitic mass] 31.5 pg Normal 25.9-34.0 [facility] Comment on above: Performed By: #### C BC #### [facility] [address] [place] [address] Dr. Jodi Oglesby MCHC (RBC) [Mass/Vol] 32.9 g/dL Normal 29.9-35.2 [facility] Comment on above: Performed By: #### C BC #### [facility] [address] [place] [address] Dr. Jodi Oglesby MCV (RBC) [Entitic vol] 96.0 fL Critically high 80.0-94.0 [facility] Comment on above: Performed By: #### C BC #### [facility] [address] [place] [address] Dr. Jodi Oglesby MONO # 1.1 103/ul Critically high 0.3-0.8 [facility] Comment on above: Performed By: #### C BC #### [facility] [address] [place] [address] Dr. Jodi Oglesby Monocytes/100 WBC (Bld) 10.7 % Normal 1.7-12.0 [facility] Comment on above: Performed By: #### C BC #### [facility] [address] [place] [address] Dr. Jodi Oglesby NEUT # 7.4 103/ul Critically high 1.4-6.5 [facility] Comment on above: Performed By: #### C BC #### [facility] [address] [place] [address] Dr. Jodi Oglesby Neutrophils/100 WBC (Bld) 73.1 % Normal 43.0-75.0 [facility] Comment on above: Performed By: #### C BC #### [facility] [address] [place] [address] Dr. Jodi Oglesby Platelet mean volume (Bld) [Entitic vol] 9.3 fL Critically low 9.5-13.5 [facility] Comment on above: Performed By: #### C BC #### [facility] [address] [place], [place] [address] Dr. Jodi Oglesby PLT 288 103/ul Normal 150-450 [facility] Comment on above: Performed By: #### C BC #### [facility] [address] [place], [place] [address] Dr. Jodi Oglesby RBC 2.98 106/ul Critically low 4.70-6.10 [facility] Comment on above: Performed By: #### C BC #### [facility] [address] [place], [place] [address] Dr. Jodi Oglesby WBC 10.1 103/ul Normal 4.0-11.0 [facility] Comment on above: Performed By: #### C BC #### [facility] [address] [place], [place] [address] ABD/PELVIS WO CONon [...] TAYO CASTILLO Date: 2021-11-11 03:10 Normal [facility]on SARS-CoV-2 (COVID-19) RNA JESSIE+probe Ql (Unsp spec) Not detected Normal NOT DETECTED [facility] Comment on above: Result Comment: When [...] for this test is supported by the [place] Operator of Health and Human Service's declaration that [...] used). Performed By: #### C BC #### [facility] [address] [place] [address] Dr. Jodi Oglesby OCC BLD IMMUNO SCREENon OCCULT BLOOD Negative Normal NEGATIVE [facility] Comment on above: Performed By: #### D ATA1C #### [facility] [address] [place] [address] Dr. Jodi Oglesby PROF 14(COMP METB)on 022 Albumin [Mass/Vol] 3.0 g/dL Critically low 3.4-5.0 [facility] Comment on above: Performed By: #### C MP #### [facility] [address] [place] [address] Dr. Jodi Oglesby Albumin/Globulin [Mass ratio] 0.8 {ratio} Normal [facility] Comment on above: Performed By: #### C MP #### [facility] [address] [place] [address] Dr. Jodi Oglesby ALP [Catalytic activity/Vol] 126 U/L Critically high 46-116 [facility] Comment on above: Performed By: #### C MP #### [facility] [address] [place] [address] Dr. Jodi Oglesby ALT [Catalytic activity/Vol] 22 U/L Normal 16-63 [facility] Comment on above: Performed By: #### C MP #### [facility] [address] [place] [address] Dr. Jodi Oglesby Anion gap [Moles/Vol] 16.7 mmol/L Normal [facility] Comment on above: Performed By: #### C MP #### [facility] [address] [place] [address] [address] Jodi Oglesby AST [Catalytic activity/Vol] 23 U/L Normal 15-37 [facility] Comment on above: Performed By: #### C MP #### [facility] [address] [place] [address] [address] Jodi Oglesby Bilirubin [Mass/Vol] 0.6 mg/dL Normal 0.2-1.0 [facility] Comment on above: Performed By: #### C MP #### [facility] [address] [place] [address] [address] Jodi Oglesby Calcium [Mass/Vol] 8.5 mg/dL Normal 8.5-10.1 [facility] Comment on above: Performed By: #### C MP #### [facility] [address] [place] [address] [address] Jodi Oglesby Chloride [Moles/Vol] 99 mmol/L Normal 98-107 [facility] Comment on above: Performed By: #### C MP #### [facility] [address] [place] [address] [address] Jodi Oglesby CO2 [Moles/Vol] 27.4 mmol/L Normal 21.0-32.0 [facility] Comment on above: Performed By: #### C MP #### [facility] [address] [place] [address] [address] Jodi Oglesby Creatinine [Mass/Vol] 0.80 mg/dL Normal 0.70-1.30 [facility] Comment on above: Performed By: #### C MP #### [facility] [address] [place] [address] [address] Jodi Oglesby EGFR-AF HONDURAN >60 Normal >=60 [facility] Comment on above: Performed By: #### C MP #### [facility] [address] [place] [address] [address] Jodi Oglesby EGFR-NON AF HONDURAN >60 Normal >=60 [facility] Comment on above: Performed By: #### C MP #### [facility] [address] [place] [address] [address] Jodi Oglesby Globulin (S) [Mass/Vol] 3.9 g/dL Normal [facility] Comment on above: Performed By: #### C MP #### [facility] [address] [place] [address] Dr. Jodi Oglesby Glucose [Mass/Vol] 116 mg/dL Critically high 74-106 [facility] Comment on above: Performed By: #### C MP #### [facility] [address] [place] [address] Dr. Jodi Oglesby Potassium [Moles/Vol] 4.1 mmol/L Normal 3.5-5.1 [facility] Comment on above: Performed By: #### C MP #### [facility] [address] [place] [address] Dr. Jodi Oglesby Protein [Mass/Vol] 6.9 g/dL Normal 6.4-8.2 [facility] Comment on above: Performed By: #### C MP #### [facility] [address] [place] [address] Dr. Jodi Oglesby Sodium [Moles/Vol] 129 mmol/L Critically low 136-145 [facility] Comment on above: Performed By: #### C MP #### [facility] [address] [place] [address] Dr. Jodi Oglesby Urea nitrogen [Mass/Vol] 15.0 mg/dL Normal 7.0-18.0 [facility] Comment on above: Performed By: #### C MP #### [facility] [address] [place] [address] Dr. Jodi Oglesby Urea nitrogen/Creatinine [Mass ratio] 18.8 mg/mg Normal [facility] Comment on above: Performed By: #### C MP #### [facility] [address] [place] [address] Dr. Jodi Oglesby PROTIMEon 11-11-2021 INR Coag (PPP) [Relative time] 1.01 {INR} Normal [facility] Comment on above: Performed By: #### P TT, PT #### [facility] [address] [place] [address] Dr. Jodi Oglesby INR GUIDELINES SEE BELOW Normal [facility] Comment on above: Result Comment: ESHA RED INR: 2.0 - 3.0 CONDITIONS NOT LISTED BELOW 2.5 - 3.5 FOR PROSTHETIC HEART VALVE REPLACEMENT 2.5 - 3.5 RECURRENT THROMBOSIS Performed By: #### P TT, PT #### [facility] [address] [place] [address] Dr. Jodi Oglesby PT Coag (PPP) [Time] 10.9 s Normal 9.0-11.6 [facility] Comment on above: Performed By: #### P TT, PT #### [facility] [address] [place] [address] Dr. Jodi Oglesby PTTon 11-11-2021 aPTT Coag (Bld) [Time] 25.4 s Normal 22.3-36.2 [facility] Comment on above: Performed By: #### P TT, PT #### [facility] [address] [place] [address] Dr. Jodi Oglesby CBC AUTO DIFFon 10-26-2021 BASO # 0.0 103/ul Normal 0.0-0.1 [facility] Comment on above: Performed By: #### D ATA1C #### [facility] [address] [place] [address] Dr. Jodi Oglesby Basophils/100 WBC (Bld) 0.3 % Normal 0.2-2.0 [facility] Comment on above: Performed By: #### D ATA1C #### [facility] [address] [place] [address] Dr. Jodi Oglesby EO # 0.1 103/ul Normal 0.0-0.7 [facility] Comment on above: Performed By: #### D ATA1C #### [facility] [address] [place] [address] Dr. Jodi Oglesby Eosinophils/100 WBC (Bld) 0.5 % Critically low 0.9-7.0 [facility] Comment on above: Performed By: #### D ATA1C #### [facility] [address] [place] [address] Dr. Jodi Oglesby Erythrocyte distribution width (RBC) [Ratio] 12.4 % Normal 11.0-15.0 [facility] Comment on above: Performed By: #### D ATA1C #### [facility] [address] [place] [address] Dr. Jodi Oglesby Hematocrit (Bld) [Volume fraction] 39.5 % Critically low 42.0-54.0 [facility] Comment on above: Performed By: #### D ATA1C #### [facility] [address] [place] [address] Dr. Jodi Oglesby Hemoglobin (Bld) [Mass/Vol] 12.8 g/dL Critically low 14.0-18.0 [facility] Comment on above: Performed By: #### D ATA1C #### [facility] [address] [place] [address] Dr. Jodi Oglesby IG # 0.07 10e3/ul Critically high 0.00-0.03 [facility] Comment on above: Performed By: #### D ATA1C #### [facility] [address] [place] [address] Dr. Jodi Oglesby IG % 0.5 % Normal 0.0-0.5 [facility] Comment on above: Performed By: #### D ATA1C #### [facility] [address] [place] [address] Dr. Jodi Oglesby LYMPH # 0.9 103/ul Critically low 1.2-3.8 [facility] Comment on above: Performed By: #### D ATA1C #### [facility] [address] [place] [address] Dr. Jodi Oglesby Lymphocytes/100 WBC (Bld) 6.3 % Critically low 20.5-60.0 [facility] Comment on above: Performed By: #### D ATA1C #### [facility] [address] [place] [address] Dr. Jodi Oglesby MANUAL DIFF REQ NO Normal [facility] Comment on above: Performed By: #### D ATA1C #### [facility] [address] [place] [address] Dr. Jodi Oglesby MCH (RBC) [Entitic mass] 30.8 pg Normal 25.9-34.0 [facility] Comment on above: Performed By: #### D ATA1C #### [facility] [address] [place] [address] [address] Jodi Oglesby MCHC (RBC) [Mass/Vol] 32.4 g/dL Normal 29.9-35.2 [facility] Comment on above: Performed By: #### D ATA1C #### [facility] [address] [place] [address] Dr. Jodi Oglesby MCV (RBC) [Entitic vol] 95.2 fL Critically high 80.0-94.0 [facility] Comment on above: Performed By: #### D ATA1C #### [facility] [address] [place] [address] Dr. Jodi Oglesby MONO # 0.9 103/ul Critically high 0.3-0.8 [facility] Comment on above: Performed By: #### D ATA1C #### [facility] [address] [place] [address] Dr. Jodi Oglesby Monocytes/100 WBC (Bld) 6.2 % Normal 1.7-12.0 [facility] Comment on above: Performed By: #### D ATA1C #### [facility] [address] [place] [address] Dr. Jodi Oglesby NEUT # 12.8 103/ul Critically high 1.4-6.5 [facility] Comment on above: Performed By: #### D ATA1C #### [facility] [address] [place] [address] Dr. Jodi Oglesby Neutrophils/100 WBC (Bld) 86.2 % Critically high 43.0-75.0 [facility] Comment on above: Performed By: #### D ATA1C #### [facility] [address] [place] [address] Dr. Jodi Oglesby Platelet mean volume (Bld) [Entitic vol] 9.4 fL Critically low 9.5-13.5 [facility] Comment on above: Performed By: #### D ATA1C #### [facility] [address] [place], [place] [address] Dr. Jodi Oglesby PLT 169 103/ul Normal 150-450 [facility] Comment on above: Performed By: #### D ATA1C #### [facility] [address] [place] [id number] [address] Jodi Oglesby RBC 4.15 106/ul Critically low 4.70-6.10 [facility] Comment on above: Performed By: #### D ATA1C #### [facility] [address] [place], [place] [address] Dr. Jodi Oglesby WBC 14.8 103/ul Critically high 4.0-11.0 [facility] Comment on above: Performed By: #### D ATA1C #### [facility] [address] [place] [id number] Jodi Oglesby [address] CHEST WO CONon [...] NICOLE SIMMS Date: 2021-10-26 17:38 Normal [facility]-07 SARS-CoV-2 (COVID-19) RNA JESSIE+probe Ql (Unsp spec) Not detected Normal NOT DETECTED [facility] Comment on above: Result Comment: When [...] for this test is supported by the [place] Operator of Health and Human Service's declaration that [...] used). Performed By: #### D ATA1C #### [facility] [address] [place] [address] Dr. Jodi Oglesby PROF CHEM 8 (BAS METB)on Anion gap [Moles/Vol] 11.7 mmol/L Normal [facility] Comment on above: Performed By: #### C BC #### [facility] [address] [place] [address] Dr. Jodi Oglesby Calcium [Mass/Vol] 9.2 mg/dL Normal 8.5-10.1 [facility] Comment on above: Performed By: #### C BC #### [facility] [address] [place] [address] Dr. Jodi Oglesby Chloride [Moles/Vol] 101 mmol/L Normal 98-107 [facility] Comment on above: Performed By: #### C BC #### [facility] [address] [place] [address] [address] Jodi Oglesby CO2 [Moles/Vol] 27.6 mmol/L Normal 21.0-32.0 [facility] Comment on above: Performed By: #### C BC #### [facility] [address] [place] [address] Dr. Jodi Oglesby Creatinine [Mass/Vol] 0.98 mg/dL Normal 0.70-1.30 [facility] Comment on above: Performed By: #### C BC #### [facility] [address] [place] [address] Dr. Jodi Oglesby EGFR-AF HONDURAN >60 Normal >=60 [facility] Comment on above: Performed By: #### C BC #### [facility] [address] [place] [address] Dr. Jodi Oglesby EGFR-NON AF HONDURAN >60 Normal >=60 [facility] Comment on above: Performed By: #### C BC #### [facility] [address] [place] [address] [address] Jodi Oglesby Glucose [Mass/Vol] 119 mg/dL Critically high 74-106 [facility] Comment on above: Performed By: #### C BC #### [facility] [address] [place] [address] Dr. Jodi Oglesby Potassium [Moles/Vol] 4.3 mmol/L Normal 3.5-5.1 [facility] Comment on above: Performed By: #### C BC #### [facility] [address] [place] [address] [address] Jodi Oglesby Sodium [Moles/Vol] 136 mmol/L Normal 136-145 [facility] Comment on above: Performed By: #### C BC #### [facility] [address] [place] [address] Dr. Jodi Oglesby Urea nitrogen [Mass/Vol] 15.0 mg/dL Normal 7.0-18.0 [facility] Comment on above: Performed By: #### C BC #### [facility] [address] [place] [address] Dr. Jodi Oglesby Urea nitrogen/Creatinine [Mass ratio] 15.3 mg/mg Normal [facility] Comment on above: Performed By: #### C #### [facility] [address] [place] [address] [address] Jodi Oglesby XR CLAVICLE RTon 10-26-2021 [...] ABY ALDANA Date: 2021-10-26 15:37 Normal [facility] XR ELBOW RT MIN 3 VIEWSon XR ELBOW RT MIN 3 VIEWS EXAM: XR ELBOW RT MIN 3 VIEWS HISTORY: The patient is a 81-year-old male with right elbow pain after falling. COMPARISON: None. FINDINGS: The right elbow is radiographically negative with no evidence of fracture, dislocation, fat pad elevation, or other osseous or articular abnormalities. IMPRESSION: Negative. Electronically authenticated by: EDL CHAKRABORTY Date: 2021-10-26 17:23 Normal [facility] XR HIP RT 2 3V W [...] CHARLES ALEJANDRA Date: 2021-10-26 15:40 Normal [facility] CARDIAC STRESS/REST INJE CTIONon 10-21-2021 [facility] CARDIAC STRESS/REST INJECTION Patient Name: CHICO BAKER STUDY: MYOCARDIAL PERFUSION STRESS TEST WITH LEXISCAN Performing facility: [facility], [address], [address], [place] [address] [facility] Provider: Adilene Harrington MD, [facility] PCP: Dr. Jori Dunham Supervising provider: Adilene Harrington MD, [facility] INDICATION: AAA Pre-operative risk assessment for AAA scheduled at [facility] on TBD. HISTORY: Gender: M; Age: 81 y/o ; Height: 0 cm; Weight: 0 kg. HTN; Carotid disease PAD AAA Denies smoking. COMPARISON: Previous nuclear testing completed at [place]. Previous echo testing completed on 2020 at [facility]. ACCESSION NUMBER(S): [id number]; [id number]; [id number] ORDERING CLINICIAN: JUDAH HARRINGTON TECHNIQUE: ONE DAY [...] Electronically signed by: ALL HUDSON MD Normal [facility] No Panel Informationon 10-21 Normal -[facility] [address] [place] Work Phone: COVID-19 Positive/NegativeOr dered By: Raul Quan on 10-13-2021 SARS-CoV-2 (COVID-19) N gene JESSIE+probe Ql (Resp) Negative Negative [facility] Comment on above: Testing for SARS-CoV -2 by RT-PCR This test was developed and its performance characteristics determined by [employer] and validated at the [facility]. This test has not been [...] 10-06-2021 Basophils (Bld) [#/Vol] 0.0 10*3/uL 0.0-0.2 [facility] Basophils/100 WBC Auto (Bld) Ordered By: Raul Quan on 10-06-2021 Basophils/100 WBC (Bld) 0.7 % . [facility] Blood hemoglobin measurement (mass/volume)Ordered By: Raul Quan on 10-06-2021 Hemoglobin (Bld) [Mass/Vol] 13.1 g/dL 13.0-17.0 [facility] Blood leukocytes automated c ount (number/volume)Ordered By: Raul Quan on 10-06-2021 WBC (Bld) [#/Vol] 5.2 10*3/uL 4.5-11.0 [facility] Creatinine and Glomerular fi ltration rate.predicted panel (S/P/Bld)Ordered By: Raul Quan on 10-06-2021 Creatinine [Mass/Vol] 0.98 mg/dL 0.64-1.27 [facility] Eosinophils Auto (Bld) [#/Vo l]Ordered By: Raul Quan on 10-06-2021 Eosinophils (Bld) [#/Vol] 0.1 10*3/uL 0.0-0.45 [facility] Eosinophils/100 WBC Auto (Bl d)Ordered By: Raul Quan on 10-06-2021 Eosinophils/100 WBC (Bld) 1.3 % . [facility] Erythrocyte distribution wid th Auto (RBC) [Ratio]Ordered By: Raul Quan on 10-06-2021 Erythrocyte distribution width (RBC) [Ratio] 13.3 % 12.0-14.8 [facility] Estimated glomerular filtrat ion rate (GFR) non- AmericanOrdered By: Raul Quan on 10-06-2021 GFR/1.73 sq M.predicted among non-blacks MDRD (S/P/Bld) [Vol rate/Area] > 60 mL/Min [facility] Hematocrit Auto (Bld) [Volum e fraction]Ordered By: Raul Quan on 10-06-2021 Hematocrit (Bld) [Volume fraction] 40.4 % 38.8-50.0 [facility] Laboratory - Hematology and Cell countsOrdered By: Raul Quan on 10-06-2021 Nucleated RBC/100 WBC (Bld) [Ratio] 0.0 % 0-0.5 [facility] Lymphocytes Auto (Bld) [#/Vo l]Ordered By: Raul Quan on 10-06-2021 Lymphocytes (Bld) [#/Vol] 1.0 10*3/uL 1.00-4.8 [facility] Lymphocytes/100 WBC Auto (Bl d)Ordered By: Raul Quan on 10-06-2021 Lymphocytes/100 WBC (Bld) 18.4 % . [facility] MCH Auto (RBC) [Entitic mass ]Ordered By: Raul Quan on 10-06-2021 MCH (RBC) [Entitic mass] 30.9 pg 27.5-35.2 [facility] MCHC Auto (RBC) [Mass/Vol]Or dered By: Raul Quan on 10-06-2021 MCHC (RBC) [Mass/Vol] 32.5 g/dL 32.5-35.6 [facility] MCV Auto (RBC) [Entitic vol] Ordered By: Raul Quan on 10-06-2021 MCV (RBC) [Entitic vol] 95.2 fL 83.5-101 [facility] Monocytes Auto (Bld) [#/Vol] Ordered By: Raul Quan on 10-06-2021 Monocytes (Bld) [#/Vol] 0.6 10*3/uL 0.0-0.8 [facility] Monocytes/100 WBC Auto (Bld) Ordered By: Raul Quan on 10-06-2021 Monocytes/100 WBC (Bld) 12.0 % . [facility] Neutrophils Auto (Bld) [#/Vo l]Ordered By: Raul Quan on 10-06-2021 Neutrophils (Bld) [#/Vol] 3.5 10*3/uL 1.8-7.7 [facility] Neutrophils/100 WBC Auto (Bl d)Ordered By: Raul Quan on 10-06-2021 Neutrophils/100 WBC (Bld) 67.6 % . [facility] No Panel InformationOrdered By: Raul Quan on 10-06-2021 Estimated GFR () > 60 mL/Min [facility] Comment on above: GFR estimated refere nce range: According to KDOQI guidelines, <60 ml/min/1.73m2 is sufficient to diagnose a patient with chronic kidney disease. Pharmacy Creatinine Clearance (Chem N/A [facility] Platelet mean volume Auto (B ld) [Entitic vol]Ordered By: Raul Quan on 10-06-2021 Platelet mean volume (Bld) [Entitic vol] 8.1 fL 6.6-10.1 [facility] Platelets Auto (Bld) [#/Vol] Ordered By: Raul Quan on 10-06-2021 Platelets (Bld) [#/Vol] 185 10*3/uL 150-450 [facility] RBC Auto (Bld) [#/Vol]Ordere d By: Raul Quan on 10-06-2021 RBC (Bld) [#/Vol] 4.25 10*6/uL 3.90-5.60 [facility] Serum or plasma calcium richy urement (mass/volume)Ordered By: Raul Quan on 10-06-2021 Calcium [Mass/Vol] 9.0 mg/dL 8.2-10.2 [facility] Serum or plasma chloride young surement (moles/volume)Ordered By: Raul Quan on 10-06-2021 Chloride [Moles/Vol] 101 mmol/L 95-114 [facility] Serum or plasma glucose richy urement (mass/volume)Ordered By: Raul Quan on 10-06-2021 Glucose [Mass/Vol] 187 mg/dL 70-100 [facility] Comment on above: ADA recommended refe rence range Random Glucose Reference Range is dependent on time and content of last meal. Glucose of more than 200 mg/dL in a nonstressed, ambulatory subject supports the diagnosis of Diabetes Mellitus. Serum or plasma potassium me asurement (moles/volume)Ordered By: Raul uQan on 10-06-2021 Potassium [Moles/Vol] 4.0 mmol/L 3.5-5.1 [facility] Serum or plasma sodium measu rement (moles/volume)Ordered By: Raul Quan on 10-06-2021 Sodium [Moles/Vol] 135 mmol/L 136-146 [facility] Serum or plasma total carbon dioxide measurement (moles/volume)Ordered By: Raul Quan on 10-06-2021 CO2 [Moles/Vol] 25.1 mmol/L 22.0-30.0 [facility] Serum or plasma urea nitroge n measurement (mass/volume)Ordered By: Raul Quan on 10-06-2021 Urea nitrogen [Mass/Vol] 13 mg/dL 11-28 [facility] CBC AUTO DIFFon 09-22-2021 BASO # 0.0 103/ul Normal 0.0-0.1 [facility] Comment on above: Performed By: #### C BC #### [facility] [address] [place] [address] Dr. Jodi Oglesby Basophils/100 WBC (Bld) 0.3 % Normal 0.2-2.0 [facility] Comment on above: Performed By: #### C BC #### [facility] [address] [place] [address] Dr. Jodi Oglesby EO # 0.1 103/ul Normal 0.0-0.7 [facility] Comment on above: Performed By: #### C BC #### [facility] [address] [place] [address] Dr. Jodi Oglesby Eosinophils/100 WBC (Bld) 0.8 % Critically low 0.9-7.0 [facility] Comment on above: Performed By: #### C BC #### [facility] [address] [place] [address] Dr. Jodi Oglesby Erythrocyte distribution width (RBC) [Ratio] 12.5 % Normal 11.0-15.0 [facility] Comment on above: Performed By: #### C BC #### [facility] [address] [place] [address] Dr. Jodi Oglesby Hematocrit (Bld) [Volume fraction] 43.6 % Normal 42.0-54.0 [facility] Comment on above: Performed By: #### C BC #### [facility] [address] [place] [address] Dr. Jodi Oglesby Hemoglobin (Bld) [Mass/Vol] 14.1 g/dL Normal 14.0-18.0 [facility] Comment on above: Performed By: #### C BC #### [facility] [address] [place] [address] Dr. Jodi Oglesby IG # 0.03 10e3/ul Normal 0.00-0.03 [facility] Comment on above: Performed By: #### C BC #### [facility] [address] [place] [address] Dr. Jodi Oglesby IG % 0.3 % Normal 0.0-0.5 [facility] Comment on above: Performed By: #### C BC #### [facility] [address] [place] [address] Dr. Jodi Oglesby LYMPH # 1.5 103/ul Normal 1.2-3.8 [facility] Comment on above: Performed By: #### C BC #### [facility] [address] [place] [address] Dr. Jodi Oglesby Lymphocytes/100 WBC (Bld) 17.2 % Critically low 20.5-60.0 [facility] Comment on above: Performed By: #### C BC #### [facility] [address] [place] [address] Dr. Jodi Oglesby MANUAL DIFF REQ NO Normal [facility] Comment on above: Performed By: #### C BC #### [facility] [address] [place] [address] Dr. Jodi Oglesby MCH (RBC) [Entitic mass] 31.1 pg Normal 25.9-34.0 [facility] Comment on above: Performed By: #### C BC #### [facility] [address] [place] [address] Dr. Jodi Oglesby MCHC (RBC) [Mass/Vol] 32.3 g/dL Normal 29.9-35.2 [facility] Comment on above: Performed By: #### C BC #### [facility] [address] [place] [address] Dr. Jodi Oglesby MCV (RBC) [Entitic vol] 96.0 fL Critically high 80.0-94.0 [facility] Comment on above: Performed By: #### C BC #### [facility] [address] [place] [address] Dr. Jodi Oglesby MONO # 1.0 103/ul Critically high 0.3-0.8 [facility] Comment on above: Performed By: #### C BC #### [facility] [address] [place] [address] Dr. Jodi Oglesby Monocytes/100 WBC (Bld) 10.8 % Normal 1.7-12.0 [facility] Comment on above: Performed By: #### C BC #### [facility] [address] [place] [address] Dr. Jodi Oglesby NEUT # 6.2 103/ul Normal 1.4-6.5 [facility] Comment on above: Performed By: #### C BC #### [facility] [address] [place] [address] Dr. Jodi Oglesby Neutrophils/100 WBC (Bld) 70.6 % Normal 43.0-75.0 [facility] Comment on above: Performed By: #### C BC #### [facility] [address] [place] [address] Dr. Jodi Oglesby Platelet mean volume (Bld) [Entitic vol] 9.6 fL Normal 9.5-13.5 [facility] Comment on above: Performed By: #### C BC #### [facility] [address] [place] [address] Dr. Jodi Oglesby PLT 206 103/ul Normal 150-450 [facility] Comment on above: Performed By: #### C BC #### [facility] [address] [place] [address] Dr. Jodi Oglesby RBC 4.54 106/ul Critically low 4.70-6.10 [facility] Comment on above: Performed By: #### C BC #### [facility] [address] [place] [address] Dr. Jodi Oglesby WBC 8.8 103/ul Normal 4.0-11.0 [facility] Comment on above: Performed By: #### C BC #### [facility] [address] [address] [address] Jodi Oglesby PROF CHEM 8 (BAS METB)on Anion gap [Moles/Vol] 9.5 mmol/L Normal [facility] Comment on above: Performed By: #### B MP #### [facility] [address] [address] [address] Jodi Oglesby Calcium [Mass/Vol] 9.4 mg/dL Normal 8.5-10.1 [facility] Comment on above: Performed By: #### B MP #### [facility] [address] [place] [address] Dr. Jodi Oglesby Chloride [Moles/Vol] 100 mmol/L Normal 98-107 [facility] Comment on above: Performed By: #### B MP #### [facility] [address] [place] [address] Dr. Jodi Oglesby CO2 [Moles/Vol] 33.2 mmol/L Critically high 21.0-32.0 [facility] Comment on above: Performed By: #### B MP #### [facility] [address] [place] [address] Dr. Jodi Oglesby Creatinine [Mass/Vol] 0.99 mg/dL Normal 0.70-1.30 [facility] Comment on above: Performed By: #### B MP #### [facility] [address] [place] [address] Dr. Jodi Oglesby EGFR-AF HONDURAN >60 Normal >=60 [facility] Comment on above: Performed By: #### B MP #### [facility] [address] [address] [address] Jodi Oglesby EGFR-NON AF HONDURAN >60 Normal >=60 [facility] Comment on above: Performed By: #### B MP #### [facility] [address] [place] [address] Dr. Jodi Oglesby Glucose [Mass/Vol] 109 mg/dL Critically high 74-106 [facility] Comment on above: Performed By: #### B MP #### [facility] [address] [address] [address] Jodi Oglesby Potassium [Moles/Vol] 4.7 mmol/L Normal 3.5-5.1 [facility] Comment on above: Performed By: #### B MP #### [facility] [address] [address] [address] Jodi Oglesby Sodium [Moles/Vol] 138 mmol/L Normal 136-145 [facility] Comment on above: Performed By: #### B MP #### [facility] [address] [address] [address] Jodi Oglesby Urea nitrogen [Mass/Vol] 17.0 mg/dL Normal 7.0-18.0 [facility] Comment on above: Performed By: #### B MP #### [facility] [address] [address] [address] Jodi Oglesby Urea nitrogen/Creatinine [Mass ratio] 17.2 mg/mg Normal [facility] Comment on above: Performed By: #### B MP #### [facility] [address] [address] [address] Jodi Oglesby Creatinine (Bld) [Mass/Vol]O rdered By: Tamar Perea on 09-18-2021 Creatinine [Mass/Vol] 0.8 mg/dL 0.6-1.3 [facility] Comment on above: ER/ESD physician is notified/shown all ISTAT results. Critical values may be confirmed by laboratory testing if deemed necessary by ER attending doctor. No Panel InformationOrdered By: Tamar Perea on 09-18-2021 POC Estimated GFR > 60 [facility] Comment on above: GFR estimated refere nce range: According to KDOQI guidelines, <60 ml/min/1.73m2 is sufficient to diagnose a patient with chronic kidney disease. POC Estimated GFR Non- Amer > 60 [facility] CBC AUTO DIFFon 08-12-2021 BASO # 0.0 103/ul Normal 0.0-0.1 [facility] Comment on above: Performed By: #### C BC #### [facility] [address] [address] [address] Jodi Oglesby Basophils/100 WBC (Bld) 0.3 % Normal 0.2-2.0 [facility] Comment on above: Performed By: #### C BC #### [facility] [address] [place] [address] Dr. Jodi Oglesby EO # 0.1 103/ul Normal 0.0-0.7 [facility] Comment on above: Performed By: #### C BC #### [facility] [address] [place] [address] Dr. Jodi Oglesby Eosinophils/100 WBC (Bld) 1.8 % Normal 0.9-7.0 [facility] Comment on above: Performed By: #### C BC #### [facility] [address] [place] [address] Dr. Jodi Oglesby Erythrocyte distribution width (RBC) [Ratio] 12.6 % Normal 11.0-15.0 [facility] Comment on above: Performed By: #### C BC #### [facility] [address] [place] [address] Dr. Jodi Oglesby Hematocrit (Bld) [Volume fraction] 40.9 % Critically low 42.0-54.0 [facility] Comment on above: Performed By: #### C BC #### [facility] [address] [place] [address] Dr. Jodi Oglesby Hemoglobin (Bld) [Mass/Vol] 13.4 g/dL Critically low 14.0-18.0 [facility] Comment on above: Performed By: #### C BC #### [facility] [address] [place] [address] Dr. Jodi Oglesby IG # 0.03 10e3/ul Normal 0.00-0.03 [facility] Comment on above: Performed By: #### C BC #### [facility] [address] [place] [address] Dr. Jodi Oglesby IG % 0.4 % Normal 0.0-0.5 [facility] Comment on above: Performed By: #### C BC #### [facility] [address] [place] [address] Dr. Jodi Oglesby LYMPH # 1.4 103/ul Normal 1.2-3.8 [facility] Comment on above: Performed By: #### C BC #### [facility] [address] [address] [address] Jodi Oglesby Lymphocytes/100 WBC (Bld) 18.6 % Critically low 20.5-60.0 [facility] Comment on above: Performed By: #### C BC #### [facility] [address] [address] [address] Jodi Oglesby MCH (RBC) [Entitic mass] 31.5 pg Normal 25.9-34.0 [facility] Comment on above: Performed By: #### C BC #### [facility] [address] [place] [address] Dr. Jodi Oglesby MCHC (RBC) [Mass/Vol] 32.8 g/dL Normal 29.9-35.2 [facility] Comment on above: Performed By: #### C BC #### [facility] [address] [place] [address] Dr. Jodi Oglesby MCV (RBC) [Entitic vol] 96.0 fL Critically high 80.0-94.0 [facility] Comment on above: Performed By: #### C BC #### [facility] [address] [place] [address] Dr. Jodi Oglesby MONO # 0.7 103/ul Normal 0.3-0.8 [facility] Comment on above: Performed By: #### C BC #### [facility] [address] [place] [address] Dr. Jodi Oglesby Monocytes/100 WBC (Bld) 9.7 % Normal 1.7-12.0 [facility] Comment on above: Performed By: #### C BC #### [facility] [address] [place] [address] Dr. Jodi Oglesby NEUT # 5.1 103/ul Normal 1.4-6.5 [facility] Comment on above: Performed By: #### C BC #### [facility] [address] [place] [address] Dr. Jodi Oglesby Neutrophils/100 WBC (Bld) 69.2 % Normal 43.0-75.0 [facility] Comment on above: Performed By: #### C BC #### [facility] [address] [place] [address] Dr. Jodi Oglesby Platelet mean volume (Bld) [Entitic vol] 9.8 fL Normal 9.5-13.5 [facility] Comment on above: Performed By: #### C BC #### [facility] [address] [place] [address] Dr. Jodi Oglesby PLT 195 103/ul Normal 150-450 [facility] Comment on above: Performed By: #### C BC #### [facility] [address] [place] [address] Dr. Jodi Oglesby RBC 4.26 106/ul Critically low 4.70-6.10 [facility] Comment on above: Performed By: #### C BC #### [facility] [address] [place] [address] Dr. Jodi Oglesby WBC 7.4 103/ul Normal 4.0-11.0 [facility] Comment on above: Performed By: #### C BC #### [facility] [address] [place] [address] Dr. Jodi Oglesby ASHLEY - TSHon 08-12-2021 TSH 1.879 uIU/mL Normal 0.358-3.740 [facility] Comment on above: Performed By: #### D VALERIE LAWSONP #### [facility] [address] [place] [address] Dr. Jodi Oglesby TSH RANGE SEE BELOW Normal [facility] Comment on above: Result Comment: <0.3 4 UIU/ml HYPERTHYROID 0.34-5.60 UIU/ml EUTHYROID >5.60 UIU/ml HYPOTHYROID Performed By: #### D ASHLEY LAWSONBMP #### [facility] [address] [place] [address] Dr. Jodi Oglesby ASHLEY- BMP WITH LIPIDon 2021 Anion gap [Moles/Vol] 11.4 mmol/L Normal [facility] Comment on above: Performed By: #### D ATTSH, DATBMP #### [facility] [address] [address] [address] Jodi Oglesby Calcium [Mass/Vol] 8.7 mg/dL Normal 8.5-10.1 [facility] Comment on above: Performed By: #### D ATTSH, DATBMP #### [facility] [address] [address] [address] Jodi Oglesby Chloride [Moles/Vol] 105 mmol/L Normal 98-107 [facility] Comment on above: Performed By: #### D ATTSH, DATBMP #### [facility] [address] [place] [address] Dr. Jodi Oglesby Cholesterol [Mass/Vol] 113 mg/dL Normal <=200 [facility] Comment on above: Performed By: #### D ATTSH, DATBMP #### [facility] [address] [place] [address] Dr. Jodi Oglesby Cholesterol in HDL [Mass/Vol] 47 mg/dL Normal 40-60 [facility] Comment on above: Performed By: #### D ATTSH, DATBMP #### [facility] [address] [place] [address] Dr. Jodi Oglesby Cholesterol in LDL [Mass/Vol] 58.0 mg/dL Normal [facility] Comment on above: Performed By: #### D ATTSH, DATBMP #### [facility] [address] [place] [address] Dr. Jodi Oglesby CO2 [Moles/Vol] 29.0 mmol/L Normal 21.0-32.0 [facility] Comment on above: Performed By: #### D ATTSH, DATBMP #### [facility] [address] [place] [address] Dr. Jodi Oglesby Creatinine [Mass/Vol] 0.99 mg/dL Normal 0.70-1.30 [facility] Comment on above: Performed By: #### D ATTSH, DATBMP #### [facility] [address] [place] [address] Dr. Jodi Oglesby EGFR-AF HONDURAN >60 Normal >=60 [facility] Comment on above: Performed By: #### D ATTSH, DATBMP #### [facility] [address] [address] [address] Jodi Oglesby EGFR-NON AF HONDURAN >60 Normal >=60 [facility] Comment on above: Performed By: #### D ATTSH, DATBMP #### [facility] [address] [address] [address] Jodi Oglesby Glucose [Mass/Vol] 116 mg/dL Critically high 74-106 [facility] Comment on above: Performed By: #### D ATTSH, DATBMP #### [facility] [address] [address] [address] Jodi Oglesby HDL NORMAL > or = 60 mg/dl - LO W CARDIOVASCULAR RISK <40 mg/dl - HIGH CARDIOVASCULAR RISK Normal [facility] Comment on above: Performed By: #### D ATTKENDELL, DATBMP #### [facility] [address] [address] [address] Jodi Oglesby LDL CALC NORMAL SEE BELOW Normal [facility] Comment on above: Result Comment: <100 mg/dl OPTIMAL 100 - 129 mg/dl NEAR OR ABOVE OPTIMAL 130 - 159 mg/dl BORDERLINE HIGH 160 - 189 mg/dl HIGH >190 mg/dl VERY HIGH Performed By: #### D ATTSH, DATBMP #### [facility] [address] [address] [address] Jodi Oglesby Potassium [Moles/Vol] 4.4 mmol/L Normal 3.5-5.1 [facility] Comment on above: Performed By: #### D ATTSH, DATBMP #### [facility] [address] [address] [address] Jodi Oglesby Sodium [Moles/Vol] 141 mmol/L Normal 136-145 [facility] Comment on above: Performed By: #### D ATTSH, DATBMP #### [facility] [address] [address] [address] Jodi Oglesby Triglyceride [Mass/Vol] 40 mg/dL Normal <=150 [facility] Comment on above: Performed By: #### D LULU DATBMP #### [facility] [address] [address] [address] Jodi Oglesby Urea nitrogen [Mass/Vol] 16.0 mg/dL Normal 7.0-18.0 [facility] Comment on above: Performed By: #### Chavez LAWSON DATBMP #### [facility] [address] [place] [address] Dr. Jodi Oglesby Urea nitrogen/Creatinine [Mass ratio] 16.2 mg/mg Normal [facility] Comment on above: Performed By: #### Chavez LAWSON DATBMP #### [facility] [address] [place] [address] Dr. oJdi Oglesby VLDL CALC 8.0 mg/dL Normal [facility] Comment on above: Performed By: #### ASHLEY TOUREBMP #### [facility] [address] [place] [address] Dr. Jodi Oglesby GLYCOHEMOGLOBIN A1Con 2021 ADA RECOMMENDATION SEE BELOW Normal [facility] Comment on above: Result Comment: ADA RECOMMENDED LIMIT 4.0 - 6.0 ADA THERAPEUTIC TARGET < 7.0 ACTION SUGGESTED > 7.0 Performed By: #### D ATA1C #### [facility] [address] [place] [address] Dr. Jodi Oglesby Glucose [Mass/Vol] 131 mg/dL Normal [facility] Comment on above: Performed By: #### D ATA1C #### [facility] [address] [place] [address] Dr. Jodi Oglesby HbA1c (Bld) [Mass fraction] 6.2 % Normal 4.5-6.2 [facility] Comment on above: Performed By: #### D ATA1C #### [facility] [address] [place] [address] Dr. Jodi Oglesby CNOVon 12-11-2020 CNOV Office Visit ([facility] ) -- CHICO BAKER ([id number]) 1940 M Date Time Provider Department 12/11/20 10:45 AM POWER CATHERINE During your visit today, we recorded the following information about you: Pulse Blood pressure Weight Height 60/minute 122/78 67.6 kg 1.702 m Power Catherine MD 12/11/2020 11:17 AM Signed [facility] OUTPATIENT VISIT DATE December 11, 2020 OUTPATIENT VISIT TYPE EST PRIMARY CARE PHYSICIAN: Shailesh Dunham ([facility]) [address] [place] [address] REFERRING PHYSICIAN Power Catherine [address] [facility] [address] CHIEF COMPLAINT: Patient presents with: Established Patient [...] Power Catherine MD Referring Provider: POWER CATHERINE [[id number]] Allergies As of Date: 12/11/2020 Noted Allergy Reaction SHALINI INHIBITORS 05/09/2015 16 - Unknown GADOLINIUM-CONTAINING CONTRAST ME*05/09/2015 16 - Unknown TETANUS VACCINES AND TOXOID 05/16/2015 16 - Unknown Date Reviewed: 12/11/2020 Reviewed by: Harika Menjivar - Fully Assessed Reason for Visit: Established Patient [175] Follow Up [171] Primary Visit Diagnosis:AAA (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 - nitroglycerin sublingual (NITROQUICK) 0.3 mg SL tablet (more content not included)... [facility] -- CHICO BAKER ([id number]) 1940 M Date Time Provider Department 10/30/20 [...] [I71.4] Order(s):US ABD AORTA [facility] [[id number]] Order #: [id number] FUTURE Prescriptions as of 11/04/2020 - aspirin, [...] Of Date: 10/30/2020 (None) Encounter Status:Closed by HSERI MOLINA on 11/04/20 Normal [facility] Vital Signs Date Time Vital Sign Value Performing Clinician Facility 03-29-2023 10:00-0500 Body height 170.18 cm Shailesh Dunham Other [facility] Other 03-29-2023 10:00-0500 Body mass index (BMI) [Ratio] 21.8 kg/m2 [facility] Other [facility] Other 03-29-2023 10:00-0500 Body weight 63.14 kg Shailesh Kromatid Other [facility] Other 03-29-2023 10:00-0500 Diastolic blood pressure 74 mm[Hg] Shailesh Kromatid Other [facility] Other 03-29-2023 10:00-0500 Respiratory rate 12 /min Shailesh Kromatid Other [facility] Other 03-29-2023 10:00-0500 Systolic blood pressure 132 mm[Hg] Shailesh Kromatid Other [facility] Other 01-13-2023 08:49-0500 Blood Pressure Location Ivelisse Hassan [facility] 01-13-2023 08:49-0500 Diastolic blood pressure 74 mm[Hg] Ivelisse Lue [facility] 01-13-2023 08:49-0500 Heart rate 68 /min Ivelisse Lue [facility] [facility] 01-13-2023 08:49-0500 Respiratory rate 16 /min Ivelisse Lue [facility] 01-13-2023 08:49-0500 Systolic blood pressure 156 mm[Hg] Ivelisse Lue [facility] 11-10-2022 10:30-0400 Body height 170.18 cm Raul Quan Other [facility] Other 11-10-2022 10:30-0400 Body mass index (BMI) [Ratio] 20.99 kg/m2 Raul Quan Other [facility] Other 11-10-2022 10:30-0400 Body temperature 97.8 [degF] Raul Quan Other [facility] Other 11-10-2022 10:30-0400 Body weight 60.78 kg Raul Quan Other [facility] Other 11-10-2022 10:30-0400 Diastolic blood pressure 64 mm[Hg] Raul Quan Other [facility] Other 11-10-2022 10:30-0400 SaO2% (BldA) [Mass fraction] 98 % Raul Quan Other [facility] Other 11-10-2022 10:30-0400 Systolic blood pressure 110 mm[Hg] Raul Quan Other [employer] [facility] Other 10-07-2022 08:49-0400 Blood Pressure Location Ivelisse Lue [facility] 10-07-2022 08:49-0400 Diastolic blood pressure 74 mm[Hg] Ivelisse Lue [facility] 10-07-2022 08:49-0400 Heart rate 75 /min Ivelisse Lue [facility] 10-07-2022 08:49-0400 Systolic blood pressure 139 mm[Hg] Ivelisse Lue [facility] 08-04-2022 11:15-0400 Body height 170.18 cm Raul Quan Other [facility] Other 08-04-2022 11:15-0400 Body mass index (BMI) [Ratio] 21.77 kg/m2 Raul Quan Other [facility] Other 08-04-2022 11:15-0400 Body temperature 97.8 [degF] Raul Quan Other [facility] Other 08-04-2022 11:15-0400 Body weight 63.05 kg Raul Quan Other [facility] Other 08-04-2022 11:15-0400 Diastolic blood pressure 68 mm[Hg] Raul Quan Other [facility] Other 08-04-2022 11:15-0400 SaO2% (BldA) [Mass fraction] 97 % Raul Quan Other [facility] Other 08-04-2022 11:15-0400 Systolic blood pressure 108 mm[Hg] Raul Quan Other [facility] Other 07-09-2022 08:00-0400 Body temperature 98.6 [degF] DO Shailesh Ball Work Phone: [facility] 07-09-2022 08:00-0400 Diastolic blood pressure 72 mm[Hg] DO Shailesh Ball Work Phone: [facility] 07-09-2022 08:00-0400 Heart rate 69 /min DO Shailesh Ball Work Phone: [facility] 07-09-2022 08:00-0400 Respiratory rate 16 /min DO Shailesh Ball Work Phone: [facility] 07-09-2022 08:00-0400 SaO2% (BldA) [Mass fraction] 97 % DO Shailesh Ball Work Phone: [facility] 07-09-2022 08:00-0400 Systolic blood pressure 154 mm[Hg] DO Shailesh Ball Work Phone: [facility] 07-09-2022 06:00-0400 Body weight 65.8 kg DO Shailesh Ball Work Phone: [facility] 07-08-2022 10:52-0400 Inhaled oxygen flow rate 8 L/min DO Shailesh Ball Work Phone: [facility] 07-08-2022 08:34-0400 Body height 167.64 cm DO Shailesh Ball Work Phone: [facility] 07-08-2022 08:34-0400 Body mass index (BMI) [Ratio] 22.7 kg/m2 DO Shailesh Ball Work Phone: [facility] 06-24-2022 09:27-0400 Blood Pressure Location Ivelisse Lue [facility] 06-24-2022 09:27-0400 Diastolic blood pressure 75 mm[Hg] Ivelisse Lue [facility] 06-24-2022 09:27-0400 Heart rate 66 /min Ivelisse Lue [facility] 06-24-2022 09:27-0400 Respiratory rate 16 /min Ivelisse Lue [facility] 06-24-2022 09:27-0400 Systolic blood pressure 120 mm[Hg] Ivelisse Lue [facility] 05-21-2022 09:30-0400 Body height 170.18 cm Shailesh Ball Other [employer] [facility] Other 05-21-2022 09:30-0400 Body mass index (BMI) [Ratio] 21.8 kg/m2 Shailesh Ball Other [employer] [facility] Other 05-21-2022 09:30-0400 Body weight 63.14 kg Shailesh Ball Other [employer] [facility] Other 05-21-2022 09:30-0400 Diastolic blood pressure 73 mm[Hg] Shailesh Ball Other [facility] Other 05-21-2022 09:30-0400 Respiratory rate 12 /min Shailesh Ball Other [facility] Other 05-21-2022 09:30-0400 Systolic blood pressure 121 mm[Hg] Shailesh Ball Other [facility] Other 05-19-2022 11:00-0400 Body height 170.18 cm Tamar Perea Other [facility] Other 05-19-2022 11:00-0400 Body mass index (BMI) [Ratio] 22.02 kg/m2 Tamar Perea Other [facility] Other 05-19-2022 11:00-0400 Body temperature 97.5 [degF] Tamar Perea Other [facility] Other 05-19-2022 11:00-0400 Body weight 63.78 kg Tamar Perea Other [facility] Other 05-19-2022 11:00-0400 Diastolic blood pressure 76 mm[Hg] Tamar Perea Other [facility] Other 05-19-2022 11:00-0400 SaO2% (BldA) [Mass fraction] 98 % Tamar Perea Other [facility] Other 05-19-2022 11:00-0400 Systolic blood pressure 148 mm[Hg] Tamar Perea Other [facility] Other 04-15-2022 08:57-0500 Blood Pressure Location Ivelisse Lue [facility] 04-15-2022 08:57-0500 Diastolic blood pressure 78 mm[Hg] Ivelisse Lue [facility] 04-15-2022 08:57-0500 Heart rate 68 /min Ivelisse Lue [facility] 04-15-2022 08:57-0500 Respiratory rate 16 /min Ivelisse Hassan [facility] 04-15-2022 08:57-0500 Systolic blood pressure 122 mm[Hg] Ivelisse Hassan [facility] 03-10-2022 11:30-0500 Body height 170.18 cm Raul Quan Other [facility] Other 03-10-2022 11:30-0500 Body mass index (BMI) [Ratio] 21.2 kg/m2 Raul Quan Other [facility] Other 03-10-2022 11:30-0500 Body temperature 97.8 [degF] Raul Quan Other [facility] Other 03-10-2022 11:30-0500 Body weight 61.42 kg Raul Quan Other [facility] Other 03-10-2022 11:30-0500 Diastolic blood pressure 64 mm[Hg] Raul Quan Other [facility] Other 03-10-2022 11:30-0500 SaO2% (BldA) [Mass fraction] 98 % Raul Quan Other [facility] Other 03-10-2022 11:30-0500 Systolic blood pressure 108 mm[Hg] Raul Quan Other [facility] Other 02-25-2022 11:09-0500 Blood Pressure Location IVA ANTOINE [facility] 02-25-2022 11:09-0500 Diastolic blood pressure 63 mm[Hg] IVA ARASH [facility] 02-25-2022 11:09-0500 Heart rate 64 /min IVA ARASH [facility] 02-25-2022 11:09-0500 Systolic blood pressure 105 mm[Hg] IVA ARASH [facility] 02-18-2022 14:12-0500 Blood Pressure Location IVA ARASH [facility] 02-18-2022 14:12-0500 Diastolic blood pressure 83 mm[Hg] IVA ARASH [facility] 02-18-2022 14:12-0500 Heart rate 70 /min IVA ARASH [facility] 02-18-2022 14:12-0500 Systolic blood pressure 142 mm[Hg] IVA ARASH [facility] 02-11-2022 08:42-0500 Blood Pressure Location Ivelisse Lue [facility] 02-11-2022 08:42-0500 Diastolic blood pressure 73 mm[Hg] Ivelisse Lue [facility] 02-11-2022 08:42-0500 Heart rate 68 /min Ivelisse Lue [facility] 02-11-2022 08:42-0500 Respiratory rate 16 /min Ivelisse Lue [facility] 02-11-2022 08:42-0500 Systolic blood pressure 150 mm[Hg] Ivelisse Hasasn [facility] 02-05-2022 08:00-0500 Body temperature 99.1 [degF] DO Shailesh Ball Work Phone: [facility] 02-05-2022 08:00-0500 Diastolic blood pressure 76 mm[Hg] DO Shailesh Ball Work Phone: [facility] 02-05-2022 08:00-0500 Heart rate 78 /min DO Shailesh Ball Work Phone: [facility] 02-05-2022 08:00-0500 Respiratory rate 16 /min DO Shailesh Ball Work Phone: [facility] 02-05-2022 08:00-0500 SaO2% (BldA) [Mass fraction] 95 % DO Shailesh Ball Work Phone: [facility] 02-05-2022 08:00-0500 Systolic blood pressure 168 mm[Hg] DO Shailesh Ball Work Phone: [facility] 02-05-2022 03:21-0500 Body weight 64.1 kg DO Shailesh Ball Work Phone: [facility] 02-04-2022 11:43-0500 Inhaled oxygen flow rate 6 L/min DO Shailesh Ball Work Phone: [facility] 02-04-2022 09:31-0500 Body height 167.64 cm DO Shailesh Ball Work Phone: [facility] 02-04-2022 09:31-0500 Body mass index (BMI) [Ratio] 23.3 kg/m2 DO Shailesh Ball Work Phone: [facility] 01-20-2022 12:30-0500 Body height 170.18 cm Raul Quan Other [facility] Other 01-20-2022 12:30-0500 Body mass index (BMI) [Ratio] 21.92 kg/m2 Raul Buehrer Other [facility] Other 01-20-2022 12:30-0500 Body temperature 97.7 [degF] Raul Buehrer Other [facility] Other 01-20-2022 12:30-0500 Body weight 63.5 kg Raul Buehrer Other [facility] Other 01-20-2022 12:30-0500 Diastolic blood pressure 64 mm[Hg] Raul Buehrer Other [facility] Other 01-20-2022 12:30-0500 SaO2% (BldA) [Mass fraction] 99 % Raul Buehrer Other [facility] Other 01-20-2022 12:30-0500 Systolic blood pressure 116 mm[Hg] Raul Buehrer Other [facility] Other 01-05-2022 11:15-0400 Body height 170.18 cm Raul Doverehrer Other [facility] Other 01-05-2022 11:15-0400 Body mass index (BMI) [Ratio] 21.92 kg/m2 Raul Buehrer Other [facility] Other 01-05-2022 11:15-0400 Body temperature 96 [degF] Raul Buehrer Other [facility] Other 01-05-2022 11:15-0400 Body weight 63.5 kg Raul Quan Other [facility] Other 01-05-2022 11:15-0400 Diastolic blood pressure 58 mm[Hg] Raul Osorior Other [facility] Other 01-05-2022 11:15-0400 SaO2% (BldA) [Mass fraction] 99 % Raul Quan Other [facility] Other 01-05-2022 11:15-0400 Systolic blood pressure 100 mm[Hg] Raul Lawrencerer Other [facility] Other 11-24-2021 12:30-0400 Body height 170.18 cm Tamar Perea Other [facility] Other 11-24-2021 12:30-0400 Body mass index (BMI) [Ratio] 21.92 kg/m2 Tamar Perea Other [facility] Other 11-24-2021 12:30-0400 Body temperature 97.5 [degF] Tamar Brit Other [facility] Other 11-24-2021 12:30-0400 Body weight 63.5 kg Tamar Brit Other [facility] Other 11-24-2021 12:30-0400 Diastolic blood pressure 50 mm[Hg] Tamar Perea Other [facility] Other 11-24-2021 12:30-0400 SaO2% (BldA) [Mass fraction] 98 % Tamar Perea Other [facility] Other 11-24-2021 12:30-0400 Systolic blood pressure 96 mm[Hg] Tamar Martinezmoy Other [facility] Other 10-21-2021 07:30-0400 50 1 Shailesh E Ball Work Phone: [facility] [address] [place] Work Phone: Comment on above: [id number] 10-15-2021 08:27-0400 Body height 167.64 cm DO Shailesh Ball Work Phone: [facility] 10-15-2021 08:27-0400 Body temperature 97.7 [degF] DO Shailesh Ball Work Phone: [facility] 10-15-2021 08:27-0400 Body weight 66 kg DO Shailesh Ball Work Phone: [facility] 10-15-2021 08:27-0400 Diastolic blood pressure 75 mm[Hg] DO Shailesh Ball Work Phone: [facility] 10-15-2021 08:27-0400 Heart rate 73 /min DO Shailesh Ball Work Phone: [facility] 10-15-2021 08:27-0400 Respiratory rate 16 /min DO Shailesh Ball Work Phone: [facility] 10-15-2021 08:27-0400 SaO2% (BldA) [Mass fraction] 97 % DO Shailesh Ball Work Phone: [facility] 10-15-2021 08:27-0400 Systolic blood pressure 143 mm[Hg] DO Shailesh Ball Work Phone: [facility] 09-30-2021 13:30-0400 Body height 170.18 cm Tamar Martinezmoy Other [facility] Other 09-30-2021 13:30-0400 Body mass index (BMI) [Ratio] 24.27 kg/m2 Tamar Perea Other [facility] Other 09-30-2021 13:30-0400 Body temperature 97.4 [degF] Tamar Zhuo Other [facility] Other 09-30-2021 13:30-0400 Body weight 70.31 kg Tamar Perea Other [facility] Other 09-30-2021 13:30-0400 Diastolic blood pressure 70 mm[Hg] Tamar Zhuo Other [facility] Other 09-30-2021 13:30-0400 SaO2% (BldA) [Mass fraction] 98 % Tamar Perea Other [facility] Other 09-30-2021 13:30-0400 Systolic blood pressure 140 mm[Hg] Tamar Perea Other [facility] Other 09-15-2021 11:00-0400 Body height 170.18 cm Tamar Perea Other [facility] Other 09-15-2021 11:00-0400 Body mass index (BMI) [Ratio] 24.27 kg/m2 Tamar Zhuo Other [facility] Other 09-15-2021 11:00-0400 Body temperature 96.4 [degF] Tamar Zhuo Other [facility] Other 09-15-2021 11:00-0400 Body weight 70.31 kg Tamar Zhuo Other [facility] Other 09-15-2021 11:00-0400 Diastolic blood pressure 72 mm[Hg] Tamar Perea Other [facility] Other 09-15-2021 11:00-0400 SaO2% (BldA) [Mass fraction] 98 % Tamar Perea Other [facility] Other 09-15-2021 11:00-0400 Systolic blood pressure 138 mm[Hg] Tamar Perea Other [facility] Other 07-28-2021 10:45-0400 Body height 170.18 cm Raul Quan Other [facility] Other 07-28-2021 10:45-0400 Body mass index (BMI) [Ratio] 24.27 kg/m2 Raul Quan Other [facility] Other 07-28-2021 10:45-0400 Body temperature 96.6 [degF] Raul Quan Other [facility] Other 07-28-2021 10:45-0400 Body weight 70.31 kg Raul Quan Other [facility] Other 07-28-2021 10:45-0400 Diastolic blood pressure 78 mm[Hg] Raul Quan Other [facility] Other 07-28-2021 10:45-0400 SaO2% (BldA) [Mass fraction] 98 % Raul Quan Other [facility] Other 07-28-2021 10:45-0400 Systolic blood pressure 190 mm[Hg] Raul Quan Other [facility] Other Encounters Encounter Date Encounter Type Care Provider Facility Start: 04-05-2023 End: 04-05-2023 ambulatory Shailesh Dunham Other [facility] Other Start: 04-05-2023 Telephone encounter Shailesh Dunham [facility] Start: 04-04-2023 End: 04-04-2023 ambulatory Raul Lawrenceharoonjakub Other [facility] Other Start: 04-04-2023 Telephone encounter Raul Quan SE[facility] Start: 03-29-2023 End: 03-29-2023 ambulatory Shailesh Dunham Other [facility] Other Start: 03-29-2023 Transitional care ellen sarkar srvc 14 day discharge Shailesh Dunham [facility] Start: 03-25-2023 End: 03-25-2023 ambulatory Raul Melindamary ann Other [facility] Other Start: 03-25-2023 Telephone encounter Raul Dovernakul [facility] Start: 03-24-2023 ambulatory Ivelisse Hassan Facility:C [id number] Start: 01-13-2023 End: 01-14-2023 ambulatory Ivelisse Hymane Facility:[facility] [place] Start: 01-13-2023 End: 01-13-2023 Patient encounter procedure Ivelisse Hassan [facility] Start: 11-10-2022 Office outpatient vi sit 25 minutes Raul Quan [facility] Vascular Surgery Start: 11-10-2022 End: 11-10-2022 ambulatory DO Shailesh Dunham Work Phone: [facility] Other Start: 11-10-2022 End: 11-10-2022 Patient encounter procedure DO Shailesh Dunham Work Phone: [facility] Ctr-Ultrasound [place] [facility] Start: 10-07-2022 End: 10-08-2022 ambulatory Ivelisse Hassan Facility:[facility] Start: 10-07-2022 End: 10-07-2022 Patient encounter procedure Ivelisse Hassan [facility] [place] Start: 08-04-2022 End: 08-04-2022 ambulatory Raul Lawrencemary ann Other [facility] Other Start: 08-04-2022 Postop follow up vis it related to original px Raul Quan [facility] Start: 07-28-2022 End: 07-29-2022 ambulatory Ivelisse Hassan Facility:[facility] Start: 07-14-2022 ambulatory Ivelisse Hassan Facility:[facility] [id number] Start: 07-09-2022 End: 07-09-2022 ambulatory Shailesh Dunham Other [facility] Other Start: 07-09-2022 Telephone encounter Shailesh Enrico NANY [facility] Start: 07-08-2022 End: 07-08-2022 ambulatory Shailesh Dunham Other [facility] Other Start: 07-08-2022 Telephone encounter Shailesh Dunham [facility] Start: 07-08-2022 End: 07-09-2022 Evaluation and management of inpatient Shailesh Ball Facility:[facility] Start: 07-08-2022 End: 07-09-2022 Evaluation and management of inpatient DO Shailesh Ball Work Phone: [facility] Ctr-[facility] [place] [facility] Work Phone: Start: 07-01-2022 End: 07-01-2022 ambulatory Shailesh Ball Facility:[facility] Start: 07-01-2022 End: 07-01-2022 ambulatory DO Shailesh Dunham Work Phone: [facility] C[facility] Work Phone: Start: 07-01-2022 End: 07-01-2022 Patient encounter procedure DO Shailesh Dunham Work Phone: [facility] Work Phone: Start: 06-24-2022 End: 06-25-2022 ambulatory Ivelisse Hassan Facility:[facility] Start: 06-24-2022 End: 06-24-2022 Patient encounter procedure Ivelisse PorrasSilvestre Mo [facility] Start: 05-21-2022 End: 05-21-2022 ambulatory Shailesh Dunham Other [facility] Other Start: 05-21-2022 Patient encounter procedure Shailesh Dunham [facility] Start: 05-19-2022 End: 05-19-2022 ambulatory Tamar Perea Other [facility] Other Start: 05-19-2022 Follow-up encounter Tamar [place] [facility] Start: 05-13-2022 End: 05-13-2022 ambulatory Raul Quan Other [facility] Other Start: 05-13-2022 Telephone encounter Raul Quan [facility] Start: 05-11-2022 End: 05-11-2022 ambulatory Shailesh Dunham Facility:[facility] Start: 05-11-2022 End: 05-11-2022 ambulatory DO Shailesh Dunham Work Phone: [facility] C[facility] Work Phone: Start: 05-11-2022 End: 05-11-2022 Patient encounter procedure DO Shailesh Dunham Work Phone: [facility] Ctr-CT Scan [place] Work Phone: Start: 04-23-2022 End: 04-23-2022 ambulatory Raul Quan Other [facility] Other Start: 04-23-2022 Telephone encounter Raul Quan [facility] Vascular Surgery Start: 04-15-2022 End: 04-16-2022 ambulatory Ivelisse Hassan Facility:[facility] Start: 04-15-2022 End: 04-15-2022 Lab Drop off Ivelisse ChiquitaSilvestre Hassan [facility] Start: 04-15-2022 End: 04-16-2022 ambulatory Ivelisse Hassan Facility:[facility] Start: 04-15-2022 End: 04-15-2022 Patient encounter procedure Ivelisse Hassan [facility] Start: 04-14-2022 End: 04-14-2022 ambulatory Shailesh Dunham Other [facility] Other Start: 04-14-2022 Telephone encounter Shailesh Dunham [facility] Start: 03-10-2022 End: 03-10-2022 ambulatory Raul Quan Other [facility] Other Start: 03-10-2022 Office outpatient vi sit 25 minutes Raul Stanislawnakul [facility] Vascular Surgery Start: 02-25-2022 End: 02-25-2022 Patient encounter procedure IVA ANTOINE [facility] Start: 02-18-2022 End: 02-18-2022 Patient encounter procedure IVA ANTOINE [facility] Start: 02-11-2022 End: 02-11-2022 Lab Drop off Ivelisse Hassan [facility] Start: 02-11-2022 End: 02-11-2022 Patient encounter procedure Ivelisse Hassan [facility] Start: 02-10-2022 End: 02-11-2022 ambulatory IVELISSE HASSAN . Facility:[facility] Start: 02-07-2022 Encounter for other preprocedural examination DR RAUL QUAN [facility] Start: 02-07-2022 Encounter for preprocedural laboratory examination DR RAUL QUAN [facility] Start: 02-04-2022 End: 02-05-2022 Evaluation and management of inpatient Shailesh Ball Facility:[facility] Start: 02-04-2022 End: 02-05-2022 Evaluation and management of inpatient DO Shailesh Ball Work Phone: [facility] [place] [facility] Start: 02-02-2022 End: 02-03-[address] RAUL QUAN Facility:[facility] Start: 02-02-2022 End: 02-03-2022 Encounter for other preprocedural examination DR RAUL QUAN Facility:[facility] Start: 01-20-2022 Office outpatient vi sit 25 minutes Raul Quan [facility] Vascular Surgery Start: 01-20-2022 End: 01-20-2022 ambulatory DO Shailesh Ball Work Phone: [facility] Other Start: 01-20-2022 End: 01-20-2022 Patient encounter procedure DO Shailesh Ball Work Phone: [facility] Ctr-[facility]tras[facility] Start: 01-05-2022 End: 01-05-2022 ambulatory Raul Quan Other [facility] Other Start: 01-05-2022 Office outpatient vi sit 25 minutes Raul Quan [facility] Vascular Surgery Start: 12-08-2021 End: 12-09-[address] SHAILESH DUNHAM Facility:[facility] Start: 12-02-2021 End: 12-02-[address] SHAILESH DUNHAM Facility:[facility] Start: 11-24-2021 End: 11-24-2021 ambulatory Tamar Brit Other [facility] Other Start: 11-24-2021 Patient encounter procedure Tamar Martinezmoy [facility] Vascular Surgery Start: 11-11-2021 End: 11-11-[address] SHAILESH DUNHAM Facility:[facility] Start: 10-26-2021 End: 10-26-[address] SHAILESH DUNHAM Facility:[facility] Start: 10-21-2021 Patient encounter procedure Shailesh Dunham Work Phone: [facility] [address] [place] Work Phone: Start: 10-16-2021 Telephone encounter Judah Vivas MD Work Phone: [facility] [address] DO Work Phone: Start: 10-15-2021 End: 10-15-2021 Evaluation and management of inpatient DO Shailesh Dunham Work Phone: [facility] Start: 10-13-2021 End: 10-13-2021 Patient encounter procedure DO Shailesh Dunham Work Phone: [facility] Deb-Wtb-[facility] Testing Start: 10-06-2021 End: 10-06-2021 Patient encounter procedure DO Shailesh Dunham Work Phone: [facility] Azf-Ufm-Yhsdmoow Testing Start: 09-30-2021 End: 09-30-2021 ambulatory Tamar Brit Other [facility] Other Start: 09-30-2021 Encounter for other preprocedural examination Tamar Martinezmoy [facility] V[facility] Surgery Start: 09-30-2021 Follow-up encounter Tamar [place] [facility] Start: 09-22-2021 End: 09-23-[address] SHAILESH DUNHAM Facility:[facility] Start: 09-18-2021 End: 09-18-2021 Patient encounter procedure DO Shailesh Dunham Work Phone: [facility] Ctr-CT Scan [place] Start: 09-15-2021 End: 09-15-2021 ambulatory Tamar Perea Other [facility] Other Start: 09-15-2021 Follow-up encounter Tamar [place] [facility] Start: 08-27-2021 End: 08-27-2021 Patient encounter procedure DO Shailesh Dunham Work Phone: [facility] Ctr-[facility]tras[facility] Start: 08-12-2021 End: 08-13-[address] KURTZ LISTED REQUEST Facility: Start: 07-28-2021 End: 07-28-2021 ambulatory Raul Quan Other [facility] Other Start: 07-28-2021 Office outpatient ne w 45 minutes Raul Quan [facility] Vascular Surgery Start: 06-13-2020 End: 06-13-2020 Patient encounter procedure Lisandra Sher Work Phone: [facility] Work Phone: Patient encounter status Judah Harrington MD Work Phone: [facility] [address] DO Work Phone: Procedures Date Procedure Procedure Detail Performing Clinician Start: 11-10-2022 Doppler ultrasonography of bilateral carotid arteries DO Shailesh Dunham Work Phone: Start: 07-28-2022 Cystourethroscopy with dilation of urethral stricture Ivelisse Hassan Start: 07-08-2022 Antibody screen Shailesh Dunham Comment on above: Result Comment: PERFORMED BY: [address] [id number] [place] [address] PATHOLOGIST JACK SPOOLER TENDER ZENA CASTELLON M.D. Start: 07-08-2022 Insertion of carotid artery stent DO Ryder Dunham Work Phone: Start: 05-11-2022 Computed tomography angiography of abdominal and/or pelvic blood vessel DO Shailesh [email or web address] [email or web address] Phone: Start: 05-11-2022 CT angiography of head DO Shailesh [email or web address] [email or web address] Phone: Start: 05-11-2022 CT angiography of neck vessels DO Josué Dunham Work Phone: Start: 02-10-2022 PSA screening IVELISSE [place] . Comment on above: Performed By: #### DATA1C #### [facility] [address] [address] [address] 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 Ivelisse Mo Start: 02-04-2022 Antibody screen Shailesh Dunham Comment on above: Result Comment: PERFORMED BY: [address] [place] [address] PATHOLOGIST JACK SPOOLER TENDER ZENA CASTELLON M.D. Start: 02-04-2022 Endovascular repair of abdominal aortic aneurysm DO Shailesh [email or web address] [email or web address] Phone: Start: 01-20-2022 Doppler ultrasonography of bilateral carotid arteries DO Shailesh [email or web address] Phone: Start: 09-18-2021 Computed tomography angiography of abdominal and/or pelvic blood vessel DO Shailesh [email or web address] [email or web address] Phone: Start: 08-27-2021 US scan of aorta DO Shailesh [email or web address] Phone: Start: 08-27-2021 Doppler ultrasonography of bilateral carotid arteries DO Shailesh Dunham Work Phone: Start: 06-13-2020 Imm. administration COVID19 [facility] Work Phone: Start: 06-13-2020 SARS-CoV-2 vaccine, 0.5ml [facility] & [employer] [employer] [address] Work Phone: Start: 10-18-2019 Transurethral prostatectomy Ivelisse Mo Start: 04-06-2019 Cystoscope, device (physical object) Ivelisse Hassan Start: 10-06-2016 Colonoscopy Ivelisse Hassan Comment on above: 2010 Arthroscopy of knee Ivelisse reyes Catheterization of left heart Ivelisse Hassan Esophagogastroduodenoscopy K britany Hassan Plan of Treatment Date Care Activity Detail Author Start: 07-09-2022 [facility] Start: 07-08-2022 Hospital admission [facility] Start: 07-08-2022 Patient referral to dietitian [facility] Start: 02-05-2022 [facility] Start: 02-04-2022 [facility] Start: 02-04-2022 Hospital admission [facility] Start: 10-21-2021 STRESS NUC, Provider: SAL ARREDONDOI NUCLEAR 01,[id number], Status: Pen, Time: 7:30 AM STRESS NUC, Provider: SAL HHVI NUCLEAR 01,[id number], Status: Pen, Time: 7:30 AM [facility] 250 DO Work Phone: Start: 10-15-2021 [facility] Work Phone: Start: 10-15-2021 OR Percutaneous EVAR AAA (Not Applicable) OR Percutaneous EVAR AAA (Not Applicable) [facility] Start: 10-15-2021 End: 10-15-2021 Evaluation and management of inpatient AAA (abdominal aortic aneurysm) [facility]-[address] [place] [address] Surgical Start: 10-13-2021 End: 10-13-2021 Patient encounter procedure Departed Clinical [facility]-Pre-Surgical Testing Patient Education [facility] Work Phone: Patient referral [facility] Work Phone: Immunizations Immunization Date Immunization Notes Care Provider David holloway 06-13-2020 Rodney [employer] Rodney COVID 19 Vaccine Orlando Dotson [facility] Comment on above: Note: Patient tolera shyann well. No signs or symptoms of adverse reactions. Patient waited a minimum of 15 minutes. NEGATED: Highlighted row has not occurred!01-13-2023 influenza virus vaccine, unspecified formulation Ivelisse Hassan [facility] Payers Date Payer Category Payer Unknown [id number] 1959 Self-pay [id number] 1959 Unknown [id number] 1959 Unknown [id number] 1959 Unknown [id number] 1940 Unknown [id number] 2.16.84 0.1.294207.3.579.2.593 1942 Unknown [id number] 2.16.84 0.1.713385.3.579.2.593 1942 Unknown [id number] 2.16.84 0.1.113960.3.579.2.593 1942 Unknown [id number] 2.16.84 0.1.074048.3.579.2.593 1942 Unknown [id number] 2.16.84 0.1.601486.3.579.2.593 1942 Unknown [id number] 2.16.84 0.1.034482.3.579.2.593 1942 Unknown [id number] 2.16.84 0.1.193457.3.579.2.593 1942 Unknown [id number] 2.16.8 40.1.706344.3.579.2.727 1942 Unknown [id number] 2.16.8 40.1.728877.3.579.2.727 1942 Unknown [id number] 2.16.8 40.1.895268.3.579.2.727 1942 Unknown [id number] 2.16.8 40.1.178657.3.579.2.727 1942 Unknown [id number] 2.16.8 40.1.541030.3.579.2.727 1942 Unknown [id number] 2.16.8 40.1.282148.3.579.2.727 Self-pay Self Pay [id number] Unknown Unknown [place] [id number] Unknown [id number] 2.16.84 0.1.387669.3.579.2.593 Social History Date Type Detail Facility Tobacco smoking status Unknown i f ever smoked [facility] Work Phone: Start: [birth year]-1957 End: 03-08-1996 Sex Assigned At [facility] Start: 10-15-2021 End: 10-07-2022 Tobacco smoking status MTIS Ex-smoker (finding) [facility] Start: 1940 Sex Assigned At Male [facility] Tobacco smoking status Never [facility] Medical Equipment Procedure Code Equipment Code Equipment Origin al Text Equipment Identifier Dates Transcarotid artery revascularization (TCAR) Bare-metal carotid artery stent ()[id number] FDA Start: 07-08-2022 Transcarotid artery revascularization (TCAR) Bare-metal carotid artery stent ()[id number]) [id number] FDA Start: 07-08-2022 Percutaneous endovascular repair of abdominal aortic aneurysm (AAA) Abdominal aorta endovascular stent-graft ()[id number]) [id number] FDA Start: 02-04-2022 Percutaneous endovascular repair of abdominal aortic aneurysm (AAA) Abdominal aorta endovascular stent-graft ()[id number]) [id number] FDA Start: 02-04-2022 Percutaneous endovascular repair of abdominal aortic aneurysm (AAA) Abdominal aorta endovascular stent-graft ()[id number]) [id number] FDA Start: 02-04-2022 Goals Date Patient Goal Desired Activity /State Functional Status Date Assessment Result Facility 01-13-2023 Functional Status N/A [facility] 10-07-2022 Functional Status N/A [facility] 07-09-2022 Functional status Patient is Pro gressing Toward Baseline [facility] Work Phone: 06-24-2022 Functional Status N/A [facility] 04-15-2022 Functional Status N/A [facility] 02-25-2022 Functional Status N/A [facility] 02-18-2022 Functional Status N/A [facility] 02-11-2022 Functional Status N/A [facility] 02-05-2022 Functional status Patient at Baseline [facility] Work Phone: 10-15-2021 Functional status Patient at Baseline [facility] Work Phone: Mental Status Date Assessment Result Facility 07-09-2022 Cognitive function Cognitive Sta tus Patient is Progressing Toward Baseline [facility] Work Phone: 02-05-2022 Cognitive function Cognitive Sta tus Patient at Baseline [facility] Work Phone: 10-15-2021 Cognitive function Cognitive Sta tus Patient at Baseline [facility] Work Phone: Clinical Notes 04-18-2020 to 04-05-2023 Note Date & Type Note Facility 04-05-2023 Evaluation note Encounter Date Diagnosis Assessment Notes Mar, Primary hypertension (ICD-10 - I10) [facility] Other 01-28-2024 Evaluation note* Encounter Date Diagnosis Assessment Notes Treatment Notes Treatment Clinical Notes Mar, Primary hypertension (ICD-10 - I10) [facility] Other 01-22-2024 Evaluation note* Encounter Date Diagnosis Assessment Notes Treatment Notes Treatment Clinical Notes Mar, ASHD (arteriosclerotic heart disease) (ICD-10 [...] has resolved INstructed on increasing fluids Restart ASA [facility] Other 11-08-2023 Hospital Discharge instructions Patient Education [...] urethra. Follow these instructions at home: Take tmpu-taa-cawpygr and prescription medicines only as told by [...] provider. Document Revised: 09/10/2021 Document Reviewed: 09/10/2021 [facility] Patient Education 2022 [employer]. Follow Up Care 10/07/2022 09:26:45 With:Mo LEIJA, AKILAH Smith, URO Address: When: Unknown [facility] 09-05-2023 Evaluation note* Encounter Date Diagnosis Assessment [...] in the office with a CT scan. [facility] Other 08-02-2023 Hospital Discharge instructions Patient Education [...] urethra. Follow these instructions at home: Take hksz-caw-egakctg and prescription medicines only as told by [...] provider. Document Revised: 09/10/2021 Document Reviewed: 09/10/2021 [facility] Patient Education 2022 [employer]. Follow Up Care 07/28/2022 10:29:31 With:Mo LEIJA, AKILAH Smith, URO Address: When:Within 3 Day(s) [facility] 05-30-2023 Evaluation note* Encounter Date Diagnosis Assessment [...] a couple of weeks. These have resolved. [facility] Other 05-04-2023 Discharge summary Author Raul Quan [facility] July 09, 2022 12:08pm Note Date/Time July 09, 2022 8:07am [facility] [address] [place] [address] Discharge Summary Signed Patient: Chico Baker MR#: [id number] : 1940 Acct:[id number] Age/Sex: 82 / M Adm Date: 3 Loc: Room: [address] [place] [address]: Raul Quan MD Copies to: DO Tamar Frias, TOMMIE Quan MD~ Providers Date of Discharge: 07/09/22 Discharging [...] midline, neck is supple, no JVD. 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 He has a little [...] <Electronically signed by MD Raul Quan> 07/09/22 2815 [facility] Work Phone: 1([phone]) 590-881305-03-2023 History and physical note Author Raul Quan [facility] July 08, 2022 11:06am Note Date/Time July 08, 2022 11:06a m [facility] [address] [place] [address] Vascular Surgery H&P Signed Patient: Chico Baker MR#: [id number] : 1940 Acct:[id number] Age/Sex: 82 / M Adm Date: 3 Loc: Room: [address] [place] [address] Type: ADM IN Attending Dr: Raul Quan [...] 4 Signed By: <Electronically signed by MD Rual Quan> 07/08/22 1106 [facility] Work Phone: 1(714) 517-606604-19-2023 Hospital Discharge instructions Patient Education 06/24/2022 09:42:41 [...] Follow these instructions at home: Medicines Take atni-awc-gnuksjt and prescription medicines only as told by [...] or the blood stops without treatment. Take nrrx-srl-vypcbnx and prescription medicines only as told by your health care provider. Drink enough fluid to keep your urine pale yellow. This information is not intended to replace advice given to you by your health care provider. Make sure you discuss any questions you have with your health care provider. Document Revised: 10/23/2020 Document Reviewed: 10/23/2020 [facility] Patient Education 2022 [employer]. 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 Walk daily Inspect feet daily for cuts [facility] Other 03-14-2023 Evaluation note* Encounter Date Diagnosis [...] left TCAR procedure once he returns from [place] at the end of June beginning of [...] agree with plan, and denies any questions. [facility] Other 03-08-2023 Evaluation note* Encounter Date Diagnosis Assessment Notes Treatment Notes Treatment Clinical Notes May, Carotid stenosis, bilateral (ICD-10 - I65.23) CTA: < 50% right, 80% left [facility] Other 03-08-2023 Evaluation note* Encounter Date Diagnosis Assessment Notes Treatment Notes Treatment Clinical Notes May, Carotid stenosis, bilateral (ICD-10 - I65.23) CTA: < 50% right, 70% left - 05/2022 [facility] Other 02-08-2023 Hospital Discharge instructions Patient Education [...] prostate. Follow these instructions at home: Take polw-gij-iumofdw and prescription medicines only as told by [...] 02/19/2001 Document Revised: 05/07/2018 Document Reviewed: 11/12/2016 [facility] Patient Education 2020 [facility] Follow Up Care 02/11/2022 10:55:52 With:Mo LEIJA, AKILAH Smith, URO Address: When: Unknown [facility] 02-07-2023 Evaluation note* Encounter Date Diagnosis Assessment Notes Treatment Notes Treatment Clinical Notes Apr, Primary hypertension (ICD-10 - I10) [facility] Other 01-03-2023 Evaluation note* Encounter Date Diagnosis [...] to perform simultaneously to minimize contrast exposure. [facility] Other 12-21-2022 Hospital Discharge instructions Patient Education 02/25/2022 12:02:33 Rash, Adult, Crww-zn-Whfm Rash, Adult A rash is a change [...] with your condition: Medicine Take or apply dolk-lmn-fcsxhus and prescription medicines only as told by [...] the rash from spreading. Take or apply muwk-dsv-twkkbvi and prescription medicines only as told by [...] 08/10/2008 Document Revised: 06/16/2019 Document Reviewed: 09/26/2018 [facility] Patient Education 2020 [employer]. Follow Up Care 02/18/2022 14:33:21 With:Ivelisse Hassan Address:Unknown When: Unknown Comments:Appointment has already been scheduled [facility] 12-14-2022 Hospital Discharge instructions Patient Education 02/18/2022 [...] including vitamins, herbs, eye drops, creams, and tjnh-yrj-yegcdtt medicines. Any problems you or family members [...] provider tells you to take them. Taking sopa-rot-vdusikh medicines, vitamins, herbs, and supplements. Eating and [...] 02/22/2006 Document Revised: 06/14/2019 Document Reviewed: 11/23/2018 [facility] Patient Education 2019 [employer]. Follow Up Care 02/17/2022 16:33:06 With:IVA ANTOINE PA-C, URL Address: [address] [place] [address] [phone] When:02/25/2022 [facility] 12-07-2022 Hospital Discharge instructions Patient Education 02/11/2022 [...] prostate. Follow these instructions at home: Take wnwv-xkz-mcxcqqk and prescription medicines only as told by [...] 02/19/2001 Document Revised: 05/07/2018 Document Reviewed: 11/12/2016 [facility] Patient Education 2020 [employer]. Follow Up Care 01/28/2021 10:15:04 With:Mo LEIJA, AKILAH Smith, URO Address: When:6 weeks [facility] 12-01-2022 Discharge summary Author Raul Quan [facility] February 05, 2022 10:08am Note Date/Time February 05, 2022 7 :52am [facility] [address] [place] [address] Discharge Summary Signed Patient: Chico Baker MR#: [id number] : 1940 Acct:[id number] Age/Sex: 81 / M Adm Date: 2 Loc: Room: [address] [place] [address]: Raul Quan MD Copies to: [...] % (Auto) 69.5, Lymph % (Auto) 14.4, [place] % (Auto) 14.8, Eos % (Auto) 0.7, Baso % (Auto) 0.6, Nucleat RBC Rel Count 0.1, Neut # (Auto) 7.1, Lymph # (Auto) 1.5, [place] # (Auto) 1.5 H, Eos # (Auto) 0.1, Baso # (Auto) 0.1 02/04/22 08:25: Corrected WBC 9.3, Uncorrected WBC Count 9.3, RBC 4.10, Hgb 12.4L, Hct 37.5 L, MCV 91.5, MCH 30.2, MCHC 33.0, RDW 13.7, Plt Count 198, MPV 8.5, Neut % (Auto) 70.1, Lymph % (Auto) 16.4, [place] % (Auto) 12.0, Eos % (Auto) 0.9, Baso % (Auto) 0.6, Nucleat RBC Rel Count 0.0, Neut # (Auto) 6.5, Lymph # (Auto) 1.5, [place] # (Auto) 1.1 H, Eos # (Auto) [...] EVERYDAY IN THE EVENING Follow Up: Raul uQan MD [Active Staff] - 03/10/22 10:30 am (Please call the office to reschedule if this time does not work for you. Thank you.) Documented By: Tamar Perea APRN 02/05/22 0 749 Signed By: <Electronically signed by TOMMIE Perea> 02/05/22 0753 <Electronically signed by MD Raul Quan> 02/05/22 1008 [facility] Work Phone: 1(519) 720-438711-15-2022 Evaluation note* Encounter Date Diagnosis Assessment Notes [...] we will evaluate him for left TCAR. [facility] Other 10-31-2022 Evaluation note* Encounter Date Diagnosis [...] complete and CT confirms candidacy for TCAR [facility] Other 09-19-2022 Evaluation note* Encounter Date Diagnosis Assessment Notes Treatment Notes Treatment Clinical Notes Nov, AAA (abdominal aortic aneurysm) without rupture (ICD-10 - I71.4) This patient is still recovering from his recent orthopedic procedures. He continues with physical therapy and although he is getting stronger, he remains quite fatigued and weak yet. He has an upcoming appointment with his sports medicine coordinator for preoperative risk assessment and stratification this next week. We will give him a few more weeks of physical therapy and have him back in a month or so to reschedule his AAA. He did tell me that he had some abdominal pain while in the correction facility and was taken to the [facility] where a CT of the abdomen was obtained. We will get these studies pushed over for review and comparison. He denies any abdominal pain today and tells me his appetite is pretty good. He knows to call us in the meantime with any issues. [facility] Other 07-26-2022 Evaluation note* Encounter Date Diagnosis [...] agrees with this plan, denies any questions. [facility] Other 07-11-2022 Evaluation note* Encounter Date Diagnosis [...] agrees with this plan, and denies questions. [facility] Other 07-11-2022 Evaluation note* Encounter Date Diagnosis [...] agrees with this plan, and denies questions. [facility] Other 05-23-2022 Evaluation note* Encounter Date Diagnosis [...] returns we will get baseline ankle-brachial indices. [facility] Other 10-06-2021 NoteHNO ID: [id number] Author: Power Catherine MD Service: ? Author Type: Physician Type: Progress Notes Filed: 12/11/2020 11:17 AM Note Text: [facility] OUTPATIENT VISIT DATE December 11, 2020 OUTPATIENT VISIT TYPE EST PRIMARY CARE PHYSICIAN: Shailesh Dunham (Fernando) [address] [phone] REFERRING PHYSICIAN Power Catherine [address] [facility] [address] CHIEF COMPLAINT: Patient presents with: Established Patient [...] up. Continue statin therapy. ? Power Catherine, [facility]02-11-2021 NotePatient Outreach (COVAMN) CHICO BAKER ([id number]) 1940 M Date Time Provider Department 04/18/20 KIMBERLEY REHMAN During your visit today, we recorded the following information about you: Allergies As of Date: 04/18/2020 Noted Allergy Reaction SHALINI INHIBITORS 05/09/2015 16 - Unknown GADOLINIUM-CONTAINING CONTRAST ME*05/09/2015 16 - Unknown TETANUS VACCINES AND TOXOID 05/16/2015 16 - Unknown Date Reviewed: 10/18/2017 Reviewed by: Power Catherine - Fully Assessed Order(s):SARS-COVID VACCINE 1ST DOSE APPT [[id number]] Order #: [id number] FUTURE Prescriptions as of 04/18/2020 Sig: ASPIRIN 81 MG TABLET,DELAYED * Take 81 mg by mouth once justice* ISOSORBIDE MONONITRATE ER 30 * Take 30 mg by mouth once justice* CARVEDILOL 12.5 MG TABLET Take 12.5 mg by mouth twice d* DOXAZOSIN 4 MG TABLET Take 4 mg by mouth daily at b* Problem List As Of Date: 04/18/2020 (None) Encounter Status:Closed by [employer], [employer]USER on 04/22/20[facility] Evaluation + Plan note Future Appointments Appointment Date:04/15/2022 08:45:00 AM Scheduled Provider:Ivelisse Hassan MD Location:[facility] Appointment Type:URO Office Visit [facility] evaluation + Plan note Future Appointments Appointment Date:04/15/2022 08:45:00 AM Scheduled Provider:Ivelisse Hassan MD Location:[facility] Appointment Type:URO Office Visit Diagnostic Tests Pending * [facility] App[facility]ments Appointment Date:02/25/2022 11:00:00 AM Scheduled Provider:IVA ANTOINE PA-C Location:[facility] Appointment Type:URO Office Visit Appointment Date:04/15/2022 08:45:00 AM Scheduled Provider:Ivelisse Hassan MD Location:[facility] Appointment Type:URO Office Visit [facility] evaluation + Plan note Future Appointments Appointment Date:06/24/2022 09:30:00 AM Scheduled Provider:Ivelisse Hassan MD Location:[facility] Appointment Type:URO Office Visit [facility] evaluation + Plan note Future Appointments Appointment Date:01/13/2023 09:00:00 AM Scheduled Provider:Ivelisse Hassan MD Location:[facility] Appointment Type:URO Office Visit [facility] evaluation note* Diagnosis Onset Date Resolution Status AAA (abdominal aortic aneurysm) acute [facility] Work Phone: evaluation noteNo assessment information available [facility] Work Phone: evaluation noteNo [facility] Other Evaluation note* Diagnosis Onset Date Resolution Status Left carotid stenosis acute [facility] Work Phone: Hisuvaq general Narrative - Reported* Type Description Date Medical History hypercholesterolemia Medical History abdominal aortic aneurysm Medical History Carotid stenosis Medical History PAD Surgical History TURP Surgical History knee arthroscopy LEFT Surgical History Vein stripping Hospitalization History See Above [facility] Other Hisdfnb general Narrative - Reported* Type Description Date Medical History hypercholesterolemia Medical History abdominal aortic aneurysm Medical History Carotid stenosis Medical History PAD Surgical History TURP Surgical History knee arthroscopy LEFT Surgical History Vein stripping Surgical History RT FEMUR FX WITH ARABELLA PLACEMENT Hospitalization History See Above [facility] Other Hiskrkl general Narrative - Reported* Type Description Date Medical History hypercholesterolemia Medical History abdominal aortic aneurysm Medical History Carotid stenosis Medical History PAD Medical History [ ] Surgical History TURP Surgical History knee arthroscopy LEFT Surgical History Vein stripping Surgical History RT FEMUR FX WITH ARABELLA PLACEMENT Surgical History EVAR 02/04/2022 Surgical History [ ] Hospitalization History See Above [facility] Other Hisllyg general Narrative - Reported* Type Description Date [...] History COLONOSCOPY 2019 Hospitalization History See Above [facility] Other history general Narrative - Reported* Type [...] Left TCAR 07/2022 Hospitalization History See Above [facility] Other History general Narrative - Reported* Type [...] Left TCAR 07/2022 Hospitalization History See Above [facility] Other Hisykgw general Narrative - Reported* Type Description Date [...] left ESWL 03/2023 Hospitalization History See Above [facility] Other Hospital course Narrative No data available for this section [facility] Discharge instructions No data available for this section [facility] Raul Quan [facility] October 15, 2021 4:31pm Note Date/Time October 15, 2021 4: 31pm [facility] [address] [place] [address] Vascular Surgery Progress Note Signed Patient: Chico Baker MR#: [id number] : 1940 Acct:[id number] Age/Sex: 81 / M Adm Date: 2 Loc: 4 Room: 0O9048-5 Type: DIS IN Attending Dr: Raul Quan [...] proceed with evaluation here. I will contact [facility] to performoutpatient cardiac evaluation and then he will be rescheduled when he is cleared. Code(s): I71.4 - Abdominal aortic aneurysm, without rupture Status: Acute Documented By: Raul Quan MD 10/15/21 162 9 Signed By: <Electronically signed by MD Raul Quan> 10/15/21 1631 [facility] Work Phone: progress note Author Pb Zurita [facility] October 16, 2021 5:41am Note Date/Time October 16, 2021 5: 41am [facility] [address] [place], [place] [id number] Anesthesia Progress Note Signed Patient: Chico Baker MR#: [id number] : 1940 Acct:[id number] Age/Sex: 81 / M Adm Date: 2 Loc: 4 Room: 7A3684-9 Type: DIS IN Attending Dr: Raul Quan MD Copies to: ~ Anesthesia Progress Note Narrative Narrative: Patient for EVAR today for 5+ centimeter infrarenal AAA. Past medical history hypertension, moderate aortic stenosis, and coronary artery disease. Review of medical records and discussion with indicates patient had stress test 2009 positive for infarct and ischemia at which time he was referred to [facility] and had cardiac cath. Medical management was apparently chosen. No interval events,testing, or intervention. Patient has been asymptomatic but sedentary and poor historian. Advised patient and family to see sports medicine coordinator for consideration of preop stress testing. Discussed with surgeon Documented By: Pb Zurita MD 10/16/21 0825 Signed By: <Electronically signed by Pb Zurita MD> 10/16/21 0549 [facility] Work Phone: progress note No data available for this section [facility] Reason for Referral No Reason for Referral [...] this section No InformationNo InformationNo InformationNo InformationNo Information Assessments Findings Encounter Date Encounter [...] section and content) DATE CREATED AUTHOR 04/02/2021 [facility] DATE CREATED AUTHOR AUTHOR'S ORGANIZ ATION 10/28/2021 [facility] DATE CREATED AUTHOR AUTHOR'S ORGANIZ ATION 04/14/2022 [facility] DATE CREATED AUTHOR AUTHOR'S ORGANIZ ATION 11/11/2022 [facility] DATE CREATED AUTHOR AUTHOR'S ORGANIZ ATION 03/05/2023 [facility] REASON FOR VISIT (unrecogniz ed section and content) REF BY DR DUNHAM FOR AAA, PAD AND CAROTID STENOSIS, Needs a new vascular surgeon7 WK FOLLOW UP; SHYANNE'S, ABDOMINAL, CAROTID WK FOLLOW UP; SHYANNE'S, ABDOMINAL, CAROTID 08/27/21FOLLOW UP AFTER CTA [facility] 09/18/21-AAAAAA see pt post femur fx rt and clavicle rt6 WK FOLLOW UP, Follow-up abdominal aortic aneurysmVASC 3 MONTH FOLLOW UP; CAROTID DUPLEX 11A, Abdominal aortic aneurysm3 week f/u [facility], Follow-up after percutaneous aneurysm repairNo InformationNo InformationNo InformationNo InformationNo Information2 MONTH FOLLOW UP; [facility]/ Follow UpNo InformationNo InformationNo Information3 week f/u left TC[facility], Follow-up TCAR3 MONTH FOLLOW UP; CAROTID DUPLEX 10A, Follow-up after left TCARNo InformationTBH follow upNo InformationNo InformationBP reading Care Teams (unrecognized sec tion and content) [...] BE BASED ON THE PRIMARY CLINICAL RECORDS. [employer] provides no warranty or guarantee of the accuracy or completeness of information in this document.
== END 2023-04-07 10:57 | disposition home or self-care (01) ==
LOC: RAD 10:56
PROVIDERS: PCP Internal Medicine; Visit Provider Urology
DX: N20.0 Calculus of kidney (principal)
CPT/HCPCS: 74018

== ENCOUNTER 2023-04-20 09:57 | Outpatient (OUT) | payer MEDICARE, OTHER, SELFPAY ==
--- NOTE | 2023-04-20 10:07 | ECG_ITS ---
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
--- OUTSIDE RECORDS SUMMARY | 2023-04-20 10:20 | XMS_ITS | CCD ---
Author Name Unknown Address [address] [place] [address] Organization [employer] Care Team Providers Care It Program Engagement Director Name Role Phone Orlando Dotson Unavailable Raul Quan Unavailable Tamar Perea Unavailable Shailesh Dunham Unavailable DO Shailesh Dunham Primary Care Provider MD Raul Quan Attending Provider KB Perea Attending Provider MD Raul Quan Admit Provider DO Shailesh Dunham Primary Care Provider [phone] KB Perea Attending Provider MD Raul Quan Admit Provider [phone] MD Raul Quan Attending Provider [phone] SHAILESH DUNHAM Primary Care Physician [phone] [place] .IVELISSE Admitting Unavailable LUCaleb .IVELISSE Attending [...] Unavailable DO Shailesh Dunham Primary Care Provider [phone] MD Raul Quan Attending Provider DO Shailesh Dunham Primary Care Provider [phone] MD Raul Quan Attending Provider [phone] MD Raul Quan Admit Provider [phone] DO Shailesh Dunham Primary Care Provider [phone] MD Raul Quan Attending Provider Shailesh Dunham Primary [facility] Unavailable Tamar Perea Admitting Unavailable Tamar Perea [...] Converting Enzyme (Shalini) Inhibitors Drug allergy Unknown [facility] Other (6 sources) Tetanus vaccine; Translations: [tetanus toxoid] Drug allergy Unknown [facility] Repository (19 sources) Angiotensin Converting Enzyme (Shalini) Inhibitors; Translations: [Angiotensin-conve rting enzyme inhibitor agent (substance)] Allergy to substance 02-24-20 19 Hiv, [facility] (8 sources) Contrast media Allergy to substance 10-07-19 22 [facility] (8 sources) Tetanus immune globulin Drug Allergy 02-24-20 19 Unknown Reaction [facility] (20 sources) Angiotensin-conver ting enzyme inhibitor agent Drug allergy Unknown [facility] Other (2 sources) Tetanus toxoid specific immunoglobulin E Drug allergy Unknown [facility] Other (10 sources) Contrast media; Translations: [Contrast Dye] Allergy to substance unknown [facility] (10 sources) Iodine; Translations: [iodine] Drug Allergy Unknown (qualifier value) [facility] (9 sources) tetanus toxoid vaccine, inactivated; Translations: [tetanus toxoid] Drug Allergy Unknown (qualifier value) [facility] (1 source) Iodine Drug Allergy [facility] Repository (1 source) Iodine (And Iodine Containting Drugs) Drug allergy (disorder) [facility] Rep[facility] (1 source) Tetanus AND Diphtheria Tox,Adult Drug allergy (disorder) [facility] Repository (20 sources) Tetanus vaccine Drug allergy Unknown [facility] Other (3 sources) Iodinated Contrast Media Allergy to substance 07-02-19 23 [facility] Medications Current Medications Medication Drug Class(es) Dates Sig (Normalized) Sig (Original) amLODIPine 2.5 mg oral tablet (4 sources) Dihydropyridine Calcium Channel Helder Start: 04-05-2023 take 1 tablet by mouth every twelve hours amLODIPine Besylate 2.5 MG 1 tablet Orally bid Mar, Active Start: 04-05-2023 take 1 tablet by freddy th every twenty-four hours amLODIPine Besylate 2.5 MG [...] Start: 02-11-2022 take 2 tablets by mo uth three times daily calcium (as calcium citrate) [...] take 1 tablet by freddy th every twelve hours Carvedilol 25 MG 1 tablet with food Orally Twice a day Active Carvedilol Activ e cholecalciferol 0.025 mg oral capsule (17 sources) Vitamin D Start: 07-01-2022 take 1 [...] PO Daily February 23, 2019 1:00am Isosorbide [place] itrate Active isosorbide dinitrate 30 mg oral [...] Daily, # 30 tab(s), Refills(s) 6, Pharmacy: [facility]/pharmacy #[id number], 169, cm, 10/07/22 8:54:00 EDT, Height/Length Dosing, 61.5, kg, 10/07/22 8:54:00 EDT, Weight Dosing Start Date: 10/07/22 Status: Ordered oxybutynin chloride 5 mg oral tablet (6 sources) Cholinergic Muscarinic Antagonist take 1 tablet [...] for 30 day(s), 60 tab(s), Refill(s) 0, [facility]/pharmacy #[id number], 169, cm, 02/11/22 8:44:00 EST, Height/Length Dosing, 71, kg, 02/11/22 8:44:00 EST, Weight Dosing Start Date: 02/11/22 Stop Date: 03/13/22 Status: Ordered tamsulosin hydrochloride 0.4 mg oral capsule (6 sources) alpha-Adrenergic Helder take 1 capsule by [...] acid 7540 MG / polyethylene glycol 3350 69898 MG / potassium chloride 1200 MG / sodium ascorbate 38685 MG / sodium chloride 3200 MG Powder for Oral Solution) / 1 (polyethylene glycol 3350 198489 MG / potassium chloride 1000 MG / [...] Coronary arteriosclerosis; Translations: [Atherosclerotic heart disease of ramona coronary artery without angina pectoris] Onset: 11-14-2021 03-28-2019 Chronic Deficiency and other anemia (17 sources) Anemia; Translations: [Anemia, unspecified] Episodic Diabetes mellitus without complication (18 sources) Impaired fasting glycemia; Translations: [Impaired fasting glucose] Episodic Disorders of lipid metabolism (20 sources) Hyperlipidemia; Translations: [Pure hypercholesterolemi a, unspecified] Onset: 10-28-2021 03-28-2019 Chronic E Codes: Adverse effects of medical drugs (18 sources) Adverse effect of anticoagulants, initial encounter; Translations: [Medication side effects present] Onset: 09-09-2022 Episodic Esophageal disorders (2 sources) Gastro-esophageal reflux [...] prostate, unspecified] Onset: 02-11-2022 Episodic Nutritional deficiencies (17 sources) Vitamin D deficiency; Translations: [Vitamin D deficiency, unspecified] Chronic Occlusion or stenosis of precerebral arteries (20 sources) Carotid artery stenosis; Translations: [Occlusion and stenosis of unspecified carotid artery] Onset: 07-28-2021 Resolved: 09-15-2021 Chronic Other bone disease and musculoskeletal deformities (9 sources) Osteitis deformans 03-28-2019 Chronic Other bone disease and musculoskeletal deformities (17 sources) 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; 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] Chronic Other diseases of bladder and urethra (4 sources) Male urethral stricture; Translations: [Unspecified urethral stricture, male, unspecified site] Onset: 10-06-2022 Episodic Other gastrointestinal disorders (17 sources) Diarrhea; Translations: [Diarrhea, unspecified] Episodic Other lower respiratory disease (17 sources) Dyspnea on exertion; Translations: [Other forms of dyspnea] Episodic Other male genital disorders (13 sources) Male erectile dysfunction, unspecified; Translations: [Erectile dysfunction] Onset: 02-11-2022 Chronic Other nutritional; endocrine; and metabolic disorders (17 sources) Abnormal weight loss; Translations: [Abnormal weight [...] of genitalia 02-18-2022 Episodic Other skin disorders (17 sources) Vesicular eczema of hands and/or feet; [...] 2 Episodic Other aftercare (1 source) Other extermination inspector (current) drug therapy; Translations: [OTH RETIREMENT CURRENT DRUG THERAPY] Onset: 2 Episodic Other aftercare (1 source) terminal manager (current) use of anticoagulants; Translations: [OPHTHALMIC AIDE CURRNT USE ANTICOAGULANTS] Onset: 2 Episodic Other aftercare (1 source) [facility] (current) use of aspirin; Translations: [RETIREMENT CURRENT USE OF ASPIRIN] Onset: 2 Episodic [...] Test Name Value Interpretation Reference Range Facility [facility] 04-08-2023 RAD - MIS [id number]#1.00TIFF Normal [facility] Operative Reporton Operative Report [id number]#1.00TIFF Normal [facility] RAD - MISCon 03-25-2023 RAD - MISC [id number]#1.00TIFF Normal [facility] Consent for Procedure/Surger yon 03-22-2023 Consent for Procedure/Surgery [id number]#1.00TIFF Normal [facility] Lab Reportson 03-19-2023 Lab Reports [id number]#1.00TIFF Normal [facility] [place] [id number]#1.00TIFF Normal [facility] Reminderson 03-03-2023 Reminders - From: Faviola Clemens To: EU - Recalls Mo; Sent: 01/13/2023 10:01:25 EST Show up: 02/12/2023 10:01:00 EST Subject: LINDSEY and KUB Due Date/Time: 02/12/2023 10:01:00 EST Pt to have LINDSEY and KUB done in March at [facility]. Orders placed. Possible ESWL pending size of stones. No follow up at this time. Pt to be called with results. Called pt and reminded him to complete LINDSEY/KUB @ [facility] in the next month. Orders were [...] 02/22/2023 16:05:00 EST From: Belkis Johnson MA ( - Recalls Mo) To: Ivelisse Hassan MD; Sent: [...] KML Patient is scheduled for 03/24/22 @ [facility] Comment on above: Result Comment: Miss ing Attachment - attachment exceeds size limitation (02/19/2023) RAD - Ultrasound Report Can be viewed in source system Missing Attachment - attachment exceeds size limitation (02/19/2023) RAD - MISC Can be viewed in source system RAD - MISCon 02-22-2023 RAD - MISC [id number]#1.00TIFF Normal [facility] RAD - Ultrasound Reporton RAD - Ultrasound Report [id number]#1.00TIFF Normal [facility] Screenson 01-14-2023 Screens [id number]#1.00TIFF Normal [facility] Screens [id number]#1.00TIFF Normal [facility] Patient Educationon 01-14-20 Patient Education Urology Benign [...] Follow these instructions at home: ? Take bexk-lbj-tsbpmdf and prescription medicines only as told by [...] included)... Normal [facility] Urology Office/Clinic Noteon 01-13-2023 Urology Office/Clinic Note [...] with voice recognition artificial intelligence software, specifically [employer], [employer] and or [employer]. Substitutions may have occurred due to the [...] included)... Normal [facility] Comment on above: Result Comment: Elec tronically Signed By: Ivelisse Hassan MD\.br\Date and Time Signed: 01/13/23 16:25 EST\.br\Electronically Co-Signed By: Faviola Clemens.br\Date and Time Co-Signed: 01/13/23 09:59 EST US carotid doppler BIon 09-0 US carotid doppler [facility] Main [place] [address] [place] [address] Ultrasound Report Signed Patient: Chico Baker MR#: [id number] : 1940 Acct:[id number] Age/Sex: 82 / M ADM Date: 11/10/22 Loc: [facility] Room: Type: [facility] Attending Dr: Raul Quan MD Ordering Provider: [...] Raul Quan M.D.11/10/2022 10:30 AM Dictation Location: [place] [address] Tech: Harika Pradhan Transcribed By: ALEX 11/10/22 1030 Dictated By: Raul Quan MD 11/10/22 1029 Signed By: 11/10/22 1030 [facility] Scre[place] 10-08-2022 Screens [id number]#1.00CD:127 Normal [facility] Screens [id number]#1.00CD:127 Normal [facility] Ambulatory Visit Summaryon 0 10-07-2022 Ambulatory Visit Summary CHICO BAKER :1940 Visit Date:10/07/2022 Ambulatory Visit Instructions Your Diagnosis BPH with obstruction/lower urinary tract symptoms History of kidney stones Asymptomatic microscopic hematuria 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 Tests Performed Urnls Dip Stick Auto w/o Microscopy POC 88311 Your Care Team Attending Physician - Mo [...] LEIJA, Ivelisse Schreiber Where: [facility] Carlos Normal [facility] Patient Educationon 10-08-19 Patient Education Urology Benign [...] Follow these instructions at home: ? Take veqe-dyq-zfcfflf and prescription medicines only as told by [...] included)... Normal [facility] Urology Office/Clinic Noteon 10-07-2022 Urology Office/Clinic Note [...] lower urinary tract symptoms) hx TURP by JEAN CARLOS 2019, prostate small on 05/11/22 CT scan [...] included)... Normal [facility] Comment on above: Result Comment: Elec tronically Signed By: Ivelisse Hassan MD\.br\Date and Time Signed: 10/07/22 10:28 EDT\.br\Electronically Co-Signed By: Eleonora Belcher\.br\Date and Time Co-Signed: 10/07/22 09:25 EDT Consent for Procedure/Surger yon 07-29-2022 Consent for Procedure/Surgery [id number]#1.00CD:127 Normal [facility] Patient Educationon 07-29-19 Patient Education Urology Erectile [...] these instructions at home: Medicines ? Take fdms-onb-lemesto and prescription medicines only as told by [...] included)... Normal [facility] Urology Office/Clinic Noteon 07-28-2022 Urology Office/Clinic Note [...] included)... Normal [facility] Comment on above: Result Comment: Elec tronically Signed By: Ivelisse Hassan MD\.br\Date and Time Signed: 07/28/22 10:49 EDT\.br\Electronically Co-Signed By: Clarissa Joaquin MA\.br\Date and Time Co-Signed: 07/28/22 10:28 EDT Activated Clotting Timeon Activated Clotting Time POC 335 s High 90-139 [facility] Comment on above: Result Comment: Refe rence Range: 90-139 (Non-heparinized) PERFORMED BY: [place] [address] PATHOLOGIST AIRPORT OPERATIONS SPECIALIST ZENA CASTELLON M.D. Performed By: #### C BC, BMP #### [facility] [address] [place] [address] Activated Clotting Time POC 143 s High 90-139 [facility] Comment on above: Result Comment: Refe rence Range: 90-139 (Non-heparinized) PERFORMED BY: [place] [address] PATHOLOGIST AIRPORT OPERATIONS SPECIALIST ZENA CASTELLON M.D. Performed By: #### C BC, BMP #### [facility] [address] [place] [address] Blood activated clotting sue e by coagulation assayOrdered By: Raul Quan on 07-08-2022 ACT Coag (Bld) 335 s 90-139 [facility] Comment on above: Reference Range: 90- 139 (Non-heparinized) Laboratory - CoagulationOrde red By: Ralu Quan on 07-08-2022 PT Coag (PPP) [Time] 11.7 s 9.0-12.9 [facility] Platelet poor plasma interna tional normalized ratio (INR) by coagulation assay (relatOrdered By: Raul Quan on 07-08-2022 INR Coag (PPP) [Relative time] 1.0 {INR} [facility] Comment on above: INR Therapeutic [...] Coag (PPP) [Relative time] 1.0 {INR} Normal [facility] Comment on above: Result Comment: [...] heart valves: 3 - 4.5 PERFORMED BY: [place] [address] PATHOLOGIST AIRPORT OPERATIONS SPECIALIST ZENA CASTELLON M.D. Performed By: #### C , BMP #### [facility] [address] PT Coag (PPP) [Time] 11.7 s Normal 9.0-12.9 [facility] Comment on above: Performed By: #### C SEAN, BMP #### [facility] [address] [place] [address] [place] Type and Screenon 07-08-2022 ABO and Rh group Nom (Bld) Blood group A Rh(D) positive Normal [facility] Comment on above: Result Comment: PERF ORMED BY: [facility] [address] [place] [address] PATHOLOGIST AIRPORT OPERATIONS SPECIALIST ZENA CASTELLON M.D. Alanine aminotransferase [En zymatic activity/volume] in Serum or PlasmaOrdered By: Raul Quan on 07-01-2022 ALT [Catalytic activity/Vol] 9 U/L 7-52 [facility] Albumin [Mass/volume] in Ser um or Plasma by Bromocresol green (BCG) dye binding methoOrdered By: Raul Quan on 07-01-2022 Albumin BCG dye [Mass/Vol] 3.7 g/dL 3.5-5.7 [facility] Alkaline phosphatase [Enzyma tic activity/volume] in Serum or PlasmaOrdered By: Raul Quan on 07-01-2022 ALP [Catalytic activity/Vol] 96 U/L 34-104 [facility] Aspartate aminotransferase [ Enzymatic activity/volume] in Serum or PlasmaOrdered By: Raul Quan on 07-01-2022 AST [Catalytic activity/Vol] 14 U/L 13-39 [facility] Basophils Auto (Bld) [#/Vol] Ordered By: Raul Quan on 07-01-2022 Basophils (Bld) [#/Vol] 0.1 10*3/uL 0.0-0.2 [facility] Basophils/100 WBC Auto (Bld) Ordered By: Raul Quan on 07-01-2022 Basophils/100 WBC (Bld) 0.7 % . [facility] Bilirubin.total [Mass/volume ] in Serum or PlasmaOrdered By: Raul Quan on 07-01-2022 Bilirubin [Mass/Vol] 0.5 mg/dL 0.3-1.0 [facility] Calcium [Mass/volume] in Ser um or PlasmaOrdered By: Raul Quan on 07-01-2022 Calcium [Mass/Vol] 8.5 mg/dL 8.6-10.3 [facility] Carbon dioxide, total [Moles /volume] in Serum or PlasmaOrdered By: Raul Quan on 07-01-2022 CO2 [Moles/Vol] 24.6 mmol/L 21.0-31.0 [facility] Chloride [Moles/volume] in S aisha or PlasmaOrdered By: Raul Quan on 07-01-2022 Chloride [Moles/Vol] 100 mmol/L 98-107 [facility] Complete Blood Count Auto Di ffon 07-01-2022 Basophils (Bld) [#/Vol] 0.1 10*3/uL Normal 0.0-0.2 [facility] Comment on above: Result Comment: PERF ORMED BY: [place] [address] PATHOLOGIST AIRPORT OPERATIONS SPECIALIST ZENA CASTELLON M.D. Performed By: #### C BC, CMP #### [address] Basophils/100 WBC (Bld) 0.7 % Normal . [facility] Comment on above: Performed By: #### C BC, CMP #### [address] Eosinophils (Bld) [#/Vol] 0.1 10*3/uL Normal 0.0-0.45 [facility] Comment on above: Performed By: #### C BC, CMP #### [address] Eosinophils/100 WBC (Bld) 1.5 % Normal . [facility] Comment on above: Performed By: #### C BC, CMP #### [address] Erythrocyte distribution width (RBC) [Ratio] 13.0 % Normal 12.0-14.8 [facility] Comment on above: Performed By: #### C BC, CMP #### [address] Hematocrit (Bld) [Volume fraction] 36.4 % Low 38.8-50.0 [facility] Comment on above: Performed By: #### C BC, CMP #### [address] Hemoglobin (Bld) [Mass/Vol] 12.1 g/dL Low 13.0-17.0 [facility] Comment on above: Performed By: #### C BC, CMP #### [address] Lymphocytes (Bld) [#/Vol] 1.6 10*3/uL Normal 1.00-4.8 [facility] Comment on above: Performed By: #### C BC, CMP #### [address] [address] [place] Lymphocytes/100 WBC (Bld) 19.3 % Normal . [facility] Comment on above: Performed By: #### C BC, CMP #### [address] MCH (RBC) [Entitic mass] 30.2 pg Normal 27.5-35.2 [facility] Comment on above: Performed By: #### C BC, CMP #### [address] MCV (RBC) [Entitic vol] 90.7 fL Normal 83.5-101 [facility] Comment on above: Performed By: #### C BC, CMP #### [address] Mean Corpuscular HGB Conc 33.3 g/dL Normal 32.5-35.6 [facility] Comment on above: Performed By: #### C BC, CMP #### [address] Monocytes (Bld) [#/Vol] 0.9 10*3/uL High 0.0-0.8 [facility] Comment on above: Performed By: #### C BC, CMP #### [address] Monocytes/100 WBC (Bld) 11.1 % Normal . [facility] Comment on above: Performed By: #### C BC, CMP #### [address] Neutrophils (Bld) [#/Vol] 5.7 10*3/uL Normal 1.8-7.7 [facility] Comment on above: Performed By: #### C BC, CMP #### [address] Neutrophils/100 WBC (Bld) 67.4 % Normal . [facility] Comment on above: Performed By: #### C BC, CMP #### [address] NRBC% 0.0 /100{WBC} Normal 0-0.5 [facility] Comment on above: Performed By: #### C BC, CMP #### [address] Platelet mean volume (Bld) [Entitic vol] 7.6 fL Normal 6.6-10.1 [facility] Comment on above: Performed By: #### C BC, CMP #### [address] Platelets (Bld) [#/Vol] 198 10*3/uL Normal 150-450 [facility] Comment on above: Performed By: #### C BC, CMP #### [address] RBC (Bld) [#/Vol] 4.01 10*6/uL Normal 3.90-5.60 [facility] Comment on above: Performed By: #### C BC, CMP #### [address] WBC (Bld) [#/Vol] 8.5 10*3/uL Normal 4.1-10.5 [facility] Comment on above: Performed By: #### C BC, CMP #### [address] Comprehensive Metabolic Pane santo 07-01-2022 Albumin [Mass/Vol] 3.7 g/dL Normal 3.5-5.7 [facility] Comment on above: Performed By: #### C BC, CMP #### [address] Albumin/Globulin [Mass ratio] 1.1 {ratio} Normal [facility] Comment on above: Performed By: #### C BC, CMP #### [address] ALP [Catalytic activity/Vol] 96 U/L Normal 34-104 [facility] Comment on above: Result Comment: PERF ORMED BY: [place] [address] PATHOLOGIST AIRPORT OPERATIONS SPECIALIST ZENA CASTELLON M.D. Performed By: #### C BC, CMP #### [facility] [address] [place] [id number] [place] ALT [Catalytic activity/Vol] 9 U/L Normal 7-52 [facility] Comment on above: Performed By: #### C BC, CMP #### [facility] [address] [place] [id number] [place] Anion gap [Moles/Vol] 13.8 mmol/L Normal 6.0-15.0 [facility] Comment on above: Performed By: #### C BC, CMP #### [facility] [address] AST [Catalytic activity/Vol] 14 U/L Normal 13-39 [facility] Comment on above: Performed By: #### C BC, CMP #### [facility] [address] [place] [address] [place] Bilirubin [Mass/Vol] 0.5 mg/dL Normal 0.3-1.0 [facility] Comment on above: Performed By: #### C BC, CMP #### [facility] [address] [place] [id number] [place] Calcium [Mass/Vol] 8.5 mg/dL Low 8.6-10.3 [facility] Comment on above: Performed By: #### C BC, CMP #### [facility] [address] [place] [id number] [place] Chloride [Moles/Vol] 100 mmol/L Normal 98-107 [facility] Comment on above: Performed By: #### C BC, CMP #### [facility] [address] [place] [id number] [place] CO2 [Moles/Vol] 24.6 mmol/L Normal 21.0-31.0 [facility] Comment on above: Performed By: #### C BC, CMP #### [facility] [address] [place] [id number] [place] Creatinine [Mass/Vol] 0.87 mg/dL Normal 0.70-1.30 [facility] Comment on above: Performed By: #### C BC, CMP #### [facility] [address] [place] [address] [place] GFR/1.73 sq M.predicted MDRD (S/P/Bld) [Vol rate/Area] mL/min/{1.73_m2} [facility] Comment on above: Performed By: #### C BC, CMP #### [facility] [address] Globulin (S) [Mass/Vol] 3.4 g/dL [facility] Comment on above: Performed By: #### C BC, CMP #### [facility] [address] Glucose [Mass/Vol] 163 mg/dL High 70-100 [facility] Comment on above: Result Comment: [facility] Glucose Reference Range is dependent on time and content of last meal. Glucose of more than 200 mg/dL in a nonstressed, ambulatory subject supports the diagnosis of Diabetes Mellitus. ADA recommended reference range Performed By: #### C BC, CMP #### [address] Potassium [Moles/Vol] 4.4 mmol/L Normal 3.5-5.1 [facility] Comment on above: Performed By: #### C BC, CMP #### [address] Protein [Mass/Vol] 7.1 g/dL Normal 6.4-8.9 [facility] Comment on above: Performed By: #### C BC, CMP #### [address] Sodium [Moles/Vol] 134 mmol/L Low 136-145 [facility] Comment on above: Performed By: #### C BC, CMP #### [address] Urea nitrogen [Mass/Vol] 17 mg/dL Normal 7-25 [facility] Comment on above: Performed By: #### C BC, CMP #### [place] [address] [place] Creatinine [Mass/volume] in Serum or PlasmaOrdered By: Raul Quan on 07-01-2022 Creatinine [Mass/Vol] 0.87 mg/dL 0.70-1.30 [facility] ECG 12 lead ECGon 07-01-2022 [address] [facility] [address] Electrocardiograph Report Signed Patient: Chico Baker MR#: [id number] 284 : 1940 Acct:[id number] Age/Sex: 82 / M ADM Date: 07/01/22 Loc: Room: Type: [facility] Attending Dr: Raul Quan [...] By Rosanne Shabazz DO 07/03 0637 Normal [facility] Eosinophils Auto (Bld) [#/Vo l]Ordered By: Raul Quan on 07-01-2022 Eosinophils (Bld) [#/Vol] 0.1 10*3/uL 0.0-0.45 [facility] Eosinophils/100 WBC Auto (Bl d)Ordered By: Raul Quan on 07-01-2022 Eosinophils/100 WBC (Bld) 1.5 % . [facility] Erythrocyte distribution wid th Auto (RBC) [Ratio]Ordered By: Raul Quan on 07-01-2022 Erythrocyte distribution width (RBC) [Ratio] 13.0 % 12.0-14.8 [facility] Globulin Calc (S) [Mass/Vol] Ordered By: Raul Quan on 07-01-2022 Globulin (S) [Mass/Vol] 3.4 g/dL [facility] Glucose [Mass/volume] in Ser um or PlasmaOrdered By: Raul Quan on 07-01-2022 Glucose [Mass/Vol] 163 mg/dL 70-100 [facility] Comment on above: ADA recommended refe rence rangeRandom Glucose Reference Range is dependent on time and content of last meal. Glucose of more than 200 mg/dL in a nonstressed, ambulatory subject supports the diagnosis of Diabetes Mellitus. Hematocrit Auto (Bld) [Volum e fraction]Ordered By: Raul Quan on 07-01-2022 Hematocrit (Bld) [Volume fraction] 36.4 % 38.8-50.0 [facility] Hemoglobin [Mass/volume] in BloodOrdered By: Raul Quan on 07-01-2022 Hemoglobin (Bld) [Mass/Vol] 12.1 g/dL 13.0-17.0 [facility] Leukocytes [#/volume] correc shyann for nucleated erythrocytes in Blood by Automated counOrdered By: Raul Quan on 07-01-2022 WBC corrected for nucl RBC Auto (Bld) [#/Vol] 8.5 10*3/uL 4.1-10.5 [facility] Lymphocytes Auto (Bld) [#/Vo l]Ordered By: Raul Quan on 07-01-2022 Lymphocytes (Bld) [#/Vol] 1.6 10*3/uL 1.00-4.8 [facility] Lymphocytes/100 WBC Auto (Bl d)Ordered By: Raul Quan on 07-01-2022 Lymphocytes/100 WBC (Bld) 19.3 % . [facility] MCH Auto (RBC) [Entitic mass ]Ordered By: Raul Quan on 07-01-2022 MCH (RBC) [Entitic mass] 30.2 pg 27.5-35.2 [facility] MCHC Auto (RBC) [Mass/Vol]Or dered By: Raul Quan on 07-01-2022 MCHC (RBC) [Mass/Vol] 33.3 g/dL 32.5-35.6 [facility] MCV Auto (RBC) [Entitic vol] Ordered By: Raul Quan on 07-01-2022 MCV (RBC) [Entitic vol] 90.7 fL 83.5-101 [facility] Monocytes Auto (Bld) [#/Vol] Ordered By: Raul Quan on 07-01-2022 Monocytes (Bld) [#/Vol] 0.9 10*3/uL 0.0-0.8 [facility] Monocytes/100 WBC Auto (Bld) Ordered By: Raul Quan on 07-01-2022 Monocytes/100 WBC (Bld) 11.1 % . [facility] Neutrophils Auto (Bld) [#/Vo l]Ordered By: Raul Quan on 07-01-2022 Neutrophils (Bld) [#/Vol] 5.7 10*3/uL 1.8-7.7 [facility] Neutrophils/100 WBC Auto (Bl d)Ordered By: Raul Quan on 07-01-2022 Neutrophils/100 WBC (Bld) 67.4 % . [facility] No Panel InformationOrdered By: Raul Quan on 07-01-2022 Estimated GFR (CKD-EPI) > 60.0 mL/Min [facility] Creatinine Clearance (Chem N/A [facility] Nucleated erythrocytes [Pres ence] in Blood by Automated countOrdered By: Raul Quan on 07-01-2022 Nucleated RBC Auto Ql (Bld) 0.0 /100{WBC} 0-0.5 [facility] Platelet mean volume Auto (B ld) [Entitic vol]Ordered By: Raul Quan on 07-01-2022 Platelet mean volume (Bld) [Entitic vol] 7.6 fL 6.6-10.1 [facility] Platelets Auto (Bld) [#/Vol] Ordered By: Raul Quan on 07-01-2022 Platelets (Bld) [#/Vol] 198 10*3/uL 150-450 [facility] Potassium [Moles/volume] in Serum or PlasmaOrdered By: Raul Quan on 07-01-2022 Potassium [Moles/Vol] 4.4 mmol/L 3.5-5.1 [facility] Protein [Mass/volume] in Ser um or PlasmaOrdered By: Raul Quan on 07-01-2022 Protein [Mass/Vol] 7.1 g/dL 6.4-8.9 [facility] RBC Auto (Bld) [#/Vol]Ordere d By: Raul Quan on 07-01-2022 RBC (Bld) [#/Vol] 4.01 10*6/uL 3.90-5.60 [facility] Serum or plasma albumin/glob ulin mass ratioOrdered By: Raul Quan on 07-01-2022 Albumin/Globulin [Mass ratio] 1.1 {ratio} [facility] Serum or plasma anion gap de terminationOrdered By: Raul Quan on 07-01-2022 Anion gap [Moles/Vol] 13.8 mmol/L 6.0-15.0 [facility] Sodium [Moles/volume] in Ser um or PlasmaOrdered By: Raul Quan on 07-01-2022 Sodium [Moles/Vol] 134 mmol/L 136-145 [facility] Urea nitrogen [Mass/volume] in Serum or PlasmaOrdered By: Raul Quan on 07-01-2022 Urea nitrogen [Mass/Vol] 17 mg/dL 7-25 [facility] WBC Auto (Bld) [#/Vol]Ordere d By: Raul Quan on 07-01-2022 WBC (Bld) [#/Vol] 8.5 10*3/uL 4.1-10.5 [facility] Patient Educationon 06-25-19 Patient Education Urology Hematuria, [...] these instructions at home: Medicines ? Take yvkb-fzk-talfglh and prescription medicines only as told by [...] the blood stops without treatment. ? Take bulf-wno-kuacwlg and prescription medicines only as told by your health care provider. ? Drink enough fluid to keep your urine pale yellow. This information is not intended to replace advice given to you by your health care provider. Make sure you discuss any questions you have with your health care provider. Document Revised: 10/23/2020 Document Reviewed: 10/23/2020 [employer] Patient Education ? 2022 TE2. Normal [facility] Screenson 06-24-2022 Screens [id number]#1.00CD:127 Normal [facility] Screens [id number]#1.00CD:127 Normal [facility] Urology Office/Clinic Noteon 06-24-2022 Urology Office/Clinic Note [...] Urnls Dip Stick Auto w/o Microscopy POC 05816 Urology Procedure Order 4. Penile rash (R21: [...] included)... Normal [facility] Comment on above: Result Comment: Elec tronically Signed By: Mo LEIJA, Ivelisse Schreiber\.br\Date and Time Signed: 06/24/22 10:24 EDT RAD - CT Reporton 05-15-2022 RAD - CT Report [id number]#1.00CD:127 Normal [facility] RAD - CT Reporton 05-14-2022 RAD - CT Report [id number]#1.00CD:127 Normal [facility] RAD - CT Report [id number]#1.00CD:127 Normal [facility] CT angio abdomen pelvison CT angio abdomen pelvis [facility] [place] [address] [place] [address] CT Scan Report Signed Patient: Chico Baker MR#: [id number] 284 : 1940 Acct:[id number] Age/Sex: 81 / M ADM Date: 05/11/22 Loc: CT Room: Type: [facility] Attending Dr: Raul Quan MD Copies to: [...] The graft appears to be patent. The ramona aneurysmal sac appears mildly decreased in size [...] Payan Jr., D.OSilvestre05/11/2022 3:58 PM Dictation Location: [place] [address] Transcribed By: [facility] 05/11/22 1558 Dictated By: Woody Payan Jr, DO 05/11/22 1551 Signed By: 05/11/[address] [facility] [address] angio neckon 05-11-[address] [facility] [address] CT Scan Report Signed Patient: Chico Baker MR#: [id number] 284 : 1940 Acct:[id number] Age/Sex: 81 / M ADM Date: 05/11/22 Loc: CT Room: Type: [facility] Attending Dr: Raul Quan MD Copies to: Raul Quan MD Ordering Provider: Raul Quan MD Date of Service: 05/11/22 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, I71.4 ([id number]) CT/CT angio head: I65.23, I71.4 CTA head [...] Raul Solo M.D.05/11/2022 5:04 PM Dictation Location: [place] [address] Transcribed By: [facility] 05/11/22 1704 Dictated By: Raul Solo DO 05/11/22 1648 Signed By: 05/11/22 1704 [facility] Creatinine (Bld) [Mass/Vol]O rdered By: Raul Quan on 05-11-2022 Creatinine [Mass/Vol] 0.9 mg/dL 0.6-1.3 [facility] Comment on above: ER/ESD physician is notified/shown all ISTAT results.Critical values may be confirmed by laboratory testing ifdeemed necessary by ER attending doctor. ISTAT XRay CREon 05-11-2022 Creatinine [Mass/Vol] 0.9 mg/dL Normal 0.6-1.3 [facility] Comment on above: Result Comment: ER/E SD physician is notified/shown all ISTAT results. Critical values may be confirmed by laboratory testing if deemed necessary by ER attending doctor. Performed By: #### C BC, BMP #### [facility] [address] [place] [address] [place] ISTAT GFR ( > 60 [facility] Comment on above: Result Comment: GFR estimated reference range: According to KDOQI guidelines, <60 ml/min/1.73m2 is sufficient to diagnose a patient with chronic kidney disease. PERFORMED BY: [place] [address] PATHOLOGIST [employer] SPECIALIST ZENA CASTELLON M.D. Performed By: #### C BC, BMP #### [facility] [address] ISTAT GFR (Non- Am > 60 [facility] Comment on above: Performed By: #### C BC, BMP #### [facility] [address] No Panel InformationOrdered By: Raul Quan on 05-11-2022 POC Estimated GFR > 60 [facility] Comment on above: GFR estimated refere nce range: According to KDOQI guidelines, <60 ml/min/1.73m2 is sufficient to diagnose a patient with chronic kidney disease. POC Estimated GFR Non- Amer > 60 [facility] Coding Summary.on 04-20-2022 Coding Summary. CD:[id number] Gh0bWw +PGhlYWQ+ZU0QQDLtT84iiRRav Z8XC1hWMO8OGQILYEQAEF0PIB1 dwUT3SNrmP6JtkbRh YslsyYYyRU27JAb4FMN6cUxnOI mutH1kpTFiO8k6IbYlQI43rH61 MXgaVPJxFgH1JtAgtlqgvCYi L4stNuNcyWLwBhv+PHRhYmxlIH qcXPYiIWjdBWBzEgMmwOoiJX0q Gc9eMOCrPKDbdZiuoUHyGpOk n2wcWGLeZCotVN3jyAakI9CwoN U2XMJyl3b1Cf47oOX+PHRkIHN0 bCsdTIyut134GmUms0oaZDP7 nTMyGCjpGXT6P55yb7C7QGCxHL ErSYG5wEL1lR0peQnhqurhC4Mj bRZwSlA2HHC3lWGhoR8qzQmi jyjsiF3tLyk+I65DQF2FHRCWND 1ANqd4T3XtVmgdpLX+QO45ZYLi PA53hCCvhDUfl4mtdJt8WaPa GZCdCDG3pCgqLYfyv2AuLTWkV5 2zzWEzj3D4VMPlkJcemMQdBsIa lTT4eG5rGYaxcimyn0piwryb Qnhon9tuua79fJ19H49jXJduVR WgJTR1KHCiPUJswMxxpo2erW8e Ii8+QSlzu2qko1ploTi9AvBw OPGjgnSpuSujZHT2p9RcKa54N7 RtkRldf0XtKym1ao45xMEyb7D7 vFI0DMktIFJrgK3xHOlsDlO9 SATzAnHhcH68sRHxGKhmJn0lwX auwKfeQC5oIGNmsywmMQGygH4v JZYqkINvyQcxGB4dTNBhqjec w727ViDfTDW4UFMquINjP3BicQ 4gXnSeZDTyPOBtA2EenWAlHHid R614ATtiOmM1GLIujbEdT5Qq PADucDdpFrH3i3W9Lx8Yv2Nwxs acBQR0NXvzZJKjKsDdRoXuRsH9 V2MiFdp6HEWsdFlfFJ8hX9Ct ZEPcotenpxgxbUK9FFBsHIWvbQ 80sRRkCRtcTf3ix6T3j415CILh FIBtrR48Oc2tlGxzSUPdmMRZ dJ6eusvuf7ffegobAhWdEJYmOX n0TFc2HHLviJfbQaYoRIY8LfU0 QIK9jYRbtL8zsHezeutjwG8u Oyc+H19gkN6rCEH3KBW6bunvDI ViqyFnRF72WJ75F5IoKxicsWMs bGU+DAIzgdFofGbfUX1hOuQp w5nmh9EyRSfyP7RwUZDtHDswKd h0YYTqPQG5eFZ7qV7kKNBpHKlf g3I2zET3Y4CyzbFkrl6wq8vb CFVwMWlmL67prZTqy3E3VUCjwU Z4CMHvgYtzGhEwiJ31Ctj+PGNv ePdlq1AtJehxh3zrl6qvsBp2 VxHjKCXaogWifZfzBPJ8e2RoZc 20B17jLIkrJCXcJPOlNOOrPUKk xVzcrr2slX8jKi8+PGNvbCB3 oPQ2jR7uDOGcTkO7YPmrY145Bt WlkCNfDdlvr7cpp0weuOj8DcEk AIJacwDziDdcCEO8j7RwNq91 V50rKMkuIMGuQBGtPBNbLOOrcR pxxn1pwB5rAn3+MT4ho5rrdn57 aF50cYJ+QASoJAB5kQnzQQyw CYYavR4vRQllMtK0BBQhSjYgrH 17gVAeMYwhJd0mjCgjdVsdSL9p ICYralrfg374IsQwu5kyLCSl zCAxTQxfEDC6Y10my4Q9BHCrAD MgCFB8oYV9eN8efUoaosbrqULx uAczbbNzlRdxNImlJVdgJ946 IHRvcDsnPlBhdGllbnQgTmFtZT d8L3IrGsj9YOFhpKlpDW7abAEg EBucYi9vySgntLccNC4rJEPe biotp667VlDzc9xgPBXykVUxIB dySZD4N06qc8W6JHKwNSNqJMI8 gKL0tV1avOlgzxmemELlsCjc bcYvyQofZYniVLepP435DNSksV thXjRerqPyVDKpmHM8LD01KK38 aHKmc9P3nFE0C3ZtKMGqsusr uemebSE6HWDwEYFpeW40Os2xjF qyPc3hBZYfVAF9ENLipWGaP2Kq xZ4gFrCsLTBfJGPuQ9LvjRLy RBwqT476UZnfQkY1NZWotiUcX5 KaNBArsDreGnT3o6D4Eo5AP9V8 OZ56MK02oMVkv4X8rMZ8F9Ek QTQqwvtgvzcwuWU3JEZfGOVkqY 64Dz6raMcmDq6kRUZpLLO0WQUg zKVsA8UwkH9jNwUuUVVrSCVt W4OxdPIrAVxmP651BIqrAlY6QP RdyqGaT4OtZJAqxLgfVnJ2n8F5 Qy3VVZe6FF02YQ87lKGir9O9 lYL8Q2FmOXGngtiowpvfaEY1RD HlUMOorB20Jz5psPhcQj4eUSUs IEU1WYLaxVVvT2AnpW8cNnHg QCZsTIQxB7AsbUGcRDtcC542FB ydJlF7CISbozCmM0MxLIJpjIaq FgQ8y3B2Cs0HZXKzXU14UXG6 eZT7SE51PB26Y8BnMlamhVKkjW U+PHRhYmxlIHdpZHRoPScxMDAl ZqCwuDqoJW1cOt0tMIZuNZTd uOuryFNzXyMjp7bxOTCaFByqAJ 4bxAheQ8ZkpOI6RPZps8f4Hg11 B04lH5RmwIL+TOCzmCS4aVA9 oQ4nRsXwVyB0MCfvX005DuEilU ZpQzqju4edd3cllPw1TgF4OEQj hiRarHmaRNB0i2WsGi40Z82f IHdpZHRoPSIxNSUiIHZhbGlnbj 1zdZ5dRs9+OBXxwTY5nBZ1dQ3l XeVhLxI9IHneC945SqFbbRHa Fodia9yqi5ontUl8FgUoVJGvck TteNtyMLH5o4HiWp11S7OuzGri s5TvDor9en22wEMmi6Z8sLU2 D9TtCVVewmopkHIltEddBQ8jMM SzzujrYOBjbZ4vCBHqS2g4XtRa TuM4XMloM8QqskO6WMTvlXIt KMrjCNL1D70io8C5OLPeSVEvYS N6yPX2zE5taGebmcybtSIetHda iaArbEwyKFffMFdvU789CDCl zMacSIPhdN4uNARtbURzfNymBS 4iTZOgqpbtCy4ZNG6CIYFMUFYY FREMVAy3O1IkWej2KWSftDkk CK2rnFTuTOboBt1uyAqjmVzvQP 8iIPCsapedCLDszS3uLITecXVy kRkwIG6mDUDedfdig254XzHe ESM1FZEidWSpD7AoyR0fTaMlTM WtQBAjL5NcfBLqDQkdQ682FBnj QuD7TNDjuzIuL8SoGZXuhSjq EdQ1p7B3Cg1wIT6hLD7cLECpCZ 35NZ64lERep6A8uOI4X3HaSAIt oukujkodnEW8KPNrHBEuaG45 xTYeXWrhMh3gs0R2e585RQJnRU AisL91Tq1dpRtnWZNizLEIvA7w ivfam0jjjkqgFgKqDROtPLp2 VQj1VOMspPiiYaUbBIP2NsD5ZG G4dADrcO1ckGhapcbjeR4zDth+ ZhgrUCNxmxY9U7LcMmd7IJMk uPscAK1akQBkGDoxUo9hhNjymU jyQM3iDXTfujlyZOJhsK4gFCDh iGGgnHiyMQ3fDTCjyiynr563 KuGuFOA3DCZdhLGsZ3PkmU4eCl VyIEZsSGOwN7FrrYFjSMdoW143 NFqrYxY4XNFcfpLyW6RuTOQt uDodDeN4d3K1St3HWYpqST47FL 63iLAhr7B0hXV1N1PbLHBqvbls smbjlYC1XEKxYDNifB16iZPq MDltIv5pm7M3m130FZUmCLNviT 24Sm8ldEqwKBTnlTKNtE0lpxzh q9dfdtplHbZiYHUvMYh4BTh8 AUUktDpzXrEpHMD7QmQ9DNN1sO AsaD2qkTdcboqirB2jYmc+TGFi ZMDcx8Tri3FrLC41WL79V9Wz PjwvdGFibGU+PHRhYmxlIHdpZH DmMMkjTVPgZwAxiCdjBZ9qMv4m QIOjTZPceSbdiVXzYdLkf7gi KABuYGhvUT1qfKnnY3FmgZY6LX Sev6z2Wn65E09xJ3SriJN+PGNv dTO5yRN1qQ7tMvNqOjF0EMzq W132MuElwGTwUsodv2kdy5tchX l1CqBuDTOmkjIiqYzlHJK2d2Hx Dn05P72bGTtiMOBnMVWlCGAi MYXhwIrjrf2svF2aYo7+PGNvbC S2pDJ9tC6wAjLdDiX0AYbzV388 RiYprYDhPoiyP17wJ7HxkKE+ ETIeMrt1HDJmhXidHK1ozXHsBL nmBf6oARZ2VvGjOvZvYKmoB3Ss WLLnhliodxdgjZF6AFBqEETu bK86Pa0frDlfBf5wXTAaBKZ2II DcoPXpW1EnzW9sZiOcJKUtLCZc D0KmjUYcHKgbT199FZjnYxI3 WGUelfCmC0KfVUDgbKgaDuN8s1 D7Hs3DdWyetMAuWZ2pNcSxNFd5 X8JnNfa0ZKWgoCouGI5ufCCy KImcUz7goHfopFqnXU3zHYIagv osi993WlLyd8faTUHhuDAzHBxk DKT3Y17ff4T0UIEuXOGzSMG3 xLX5fI1faSboknhazJFsaMppur HilJsfLKlqNGfeH543SZDejWnz JrQUTwu3Y7MnMjo2XFQjhEwk LO0zvYHjEDqqWt1bjTxjnUvlCB 8kJBXtzktnn775ZnAqx9jaJQKp xXDuBRqwOUH1S66id3Z4GELd GHRdIYC1fFQ7dQ2wdLqgenswnK FlqEaprzGceKcpUMldBKblA018 HCGxaCtpOe1NVbz0R8JzOho4 JCDszWigHZ3dxSNqNWltOd9gqL hpiZcmKI0qKODlxagfr303EbJo c6deVKExkCBbJAowZGH9P46f r1H4BAKqXJIsNTY8fWD8jY1rgP lnbjogbGVmdDsgdmVydGljYWwt UHalC470SUDcpLaoTgXasLDc OjwvdGQ+ED64cs42W8HgAkacUp y2BFFgAPJ4iRC4oF9cSQMkJYsw v1M1tOL7P7DqxyFfyz6nu6ek YXBz (more content not included)... [facility] Screenson 04-16-2022 Screens [id number]#1.00CD:127 [facility] Screens [id number]#1.00CD:127 [facility] Ambulatory Visit Summaryon 0 04-15-2022 Ambulatory Visit Summary CHICO BAKER :1940 Visit Date:04/15/2022 Ambulatory Visit Instructions Your Diagnosis Penile rash Prostatitis Microhematuria BPH with obstruction/lower urinary tract symptoms History of kidney stones Tests Performed Urnls Dip Stick Auto w/o Microscopy POC [address] CT Abdomen/Pelvis w/o Contrast -- Results Pending [...] Ivelisse Hassan MD Where: [facility] Patient Educationon 04-15-19 23 Patient [...] Follow these instructions at home: ? Take aiue-hml-juidpim and prescription medicines only as told by [...] included)... Normal [facility] URINALYSISOrdered By: Kirstie sanchez on 04-15-2022 Bacteria [...] Interpretation Code Negative [facility] UA Auto SS [place].plasma/[place] .RBC (Bld) [Mass ratio] 21-30 /HPF Invalid [...] [facility] UA Auto SS Urobilinogen Qn (U) 0.8111165 {Nikki'U}/dL Normal 0.0 - 1.0 EU/dL [facility] UA Auto SS WBC Auto Ql (U) 1+ *ABN* (04/15/22 12:14 PM) Invalid Interpretation Code Negative [facility] UA Auto SS WBC LM.HPF (Urine sed) [#/Area] 0-5 /HPF Normal 0-5/HPF [facility] UA Auto SS Urinalysison 04-15-2022 Bacteria LM Ql (Urine sed) TRACE Normal Trace [facility] Comment on above: Performed By: #### 1 [id number] #### [facility] [address] [place] [address] Bilirubin Ql (U) Negative Normal Negative [facility] Comment on above: Performed By: #### 1 [id number] #### [facility] [address] [place] [address] Calcium oxalate crystals LM Ql (Urine sed) Present Normal [facility] Comment on above: Performed By: #### 1 [id number] #### [facility] [address] [place] [address] Clarity (U) CLEAR Normal Clear [facility] Comment on above: Performed By: #### 1 [id number] #### [facility] [address] [place] [address] Color (U) YELLOW Normal Yellow [facility] Comment on above: Performed By: #### 1 [id number] #### [facility] [address] [place] [address] Epithelial cells.squamous LM.HPF (Urine sed) [#/Area] 0-2 Normal 0-2 [facility] Comment on above: Performed By: #### 1 [id number] #### [facility] [address] [place] [address] Glucose Test strip (U) [Mass/Vol] Negative Normal Negative [facility] Comment on above: Performed By: #### 1 [id number] #### [facility] [address] [place] [address] Hemoglobin Ql (U) 3+ Abnormal Negative [facility] Comment on above: Performed By: #### 1 [id number] #### [facility] [address] [place] [address] Ketones (U) [Mass/Vol] TRACE Abnormal Negative [facility] Comment on above: Performed By: #### 1 [id number] #### [facility] [address] [place] [address] [place].plasma/[place] .RBC (Bld) [Mass ratio] 21-30 Abnormal 0-3 [facility] Comment on above: Performed By: #### 1 [id number] #### [facility] [address] [place] [address] Mucus Ql (Urine sed) TRACE Normal [facility] Comment on above: Performed By: #### 1 [id number] #### [facility] [address] [place] [address] Nitrite Ql (U) Negative Normal Negative [facility] Comment on above: Performed By: #### 1 [id number] #### [facility] [address] [place] [address] pH (U) 6.0 [pH] Invalid Interpretation Code 5.0-9.0 [facility] Comment on above: Performed By: #### 1 [id number] #### [facility] [address] [place] [address] Protein (U) [Mass/Vol] Negative Normal Negative [facility] Comment on above: Performed By: #### 1 [id number] #### [facility] [address] [place] [address] Specific gravity (U) [Rel density] >=1.030 Invalid Interpretation Code 1.005-1.030 [facility] Comment on above: Performed By: #### 1 [id number] #### [facility] [address] [place] [address] Type of Urine collection method Random Urine Normal [facility] Comment on above: Performed By: #### 1 [id number] #### [facility] [address] [place] [address] Urobilinogen Qn (U) 0.2 {Nikki'U}/dL Normal 0.0-1.0 [facility] Comment on above: Performed By: #### 1 [id number] #### [facility] [address] [place] [address] WBC Auto Ql (U) 1+ Abnormal Negative [facility] Comment on above: Performed By: #### 1 [id number] #### [facility] [address] [place] [address] WBC LM.HPF (Urine sed) [#/Area] 0-5 Normal 0-5 [facility] Comment on above: Performed By: #### 1 [id number] #### [facility] [address] [place] [address] Urology Office/Clinic Noteon 04-15-2022 Urology Office/Clinic Note [...] allergy prep. Pt having scan done at [facility] in May for aneurysm, will give [...] included)... Normal [facility] Comment on above: Result Comment: Elec tronically [...] Interpretation Code Negative [facility] UA Auto SS [place].plasma/[place] .RBC (Bld) [Mass ratio] 4-20 /HPF Normal [...] [facility] UA Auto SS Urobilinogen Qn (U) 0.8115983 {Nikki'U}/dL Normal 0.0 - 1.0 EU/dL [facility] UA Auto SS WBC Auto Ql (U) 1+ *ABN* (02/11/22 10:38 AM) Invalid Interpretation Code Negative [facility] UA Auto SS WBC LM.HPF (Urine sed) [#/Area] 0-5 /HPF Normal 0-5/HPF [facility] [place] Auto SS Basic Metabolic Panelon 12-0 Anion gap [Moles/Vol] 10.4 mmol/L Normal 6.0-15.0 [facility] Comment on above: Performed By: #### C BC, BMP #### [facility] [address] [place] [address] [place] Calcium [Mass/Vol] 8.4 mg/dL Normal 8.2-10.2 [facility] Comment on above: Performed By: #### C BC, BMP #### [facility] [address] [place] [address] [place] Chloride [Moles/Vol] 101 mmol/L Normal 95-114 [facility] Comment on above: Performed By: #### C BC, BMP #### [facility] [address] CO2 [Moles/Vol] 28.2 mmol/L Normal 22.0-30.0 [facility] Comment on above: Performed By: #### C BC, BMP #### [facility] [address] [place] [address] [place] Creatinine [Mass/Vol] 0.94 mg/dL Normal 0.64-1.27 [facility] Comment on above: Performed By: #### C BC, BMP #### [facility] [address] [place] [address] [place] Creatinine Clr Calc Pharmacy 57.50 [facility] Comment on above: Result Comment: PERF ORMED BY: [place] [address] PATHOLOGIST [employer]IST ZENA CASTELLON M.D. Performed By: #### C BC, BMP #### [facility] [address] [place] [address] [place] Estimated GFR ( Jojo > 60 Normal [facility] Comment on above: Result Comment: GFR estimated reference range: According to KDOQI guidelines, <60 ml/min/1.73m2 is sufficient to diagnose a patient with chronic kidney disease. Performed By: #### C BC, BMP #### [facility] [address] Estimated GFR (Non- Am > 60 Normal [facility] [facility] Comment on above: Performed By: #### C BC, BMP #### [facility] [address] Glucose [Mass/Vol] 109 mg/dL High 70-100 [facility] Comment on above: Result Comment: [place] Glucose Reference Range is dependent on time and content of last meal. Glucose of more than 200 mg/dL in a nonstressed, ambulatory subject supports the diagnosis of Diabetes Mellitus. ADA recommended reference range Performed By: #### C BC, BMP #### [facility] [address] Potassium [Moles/Vol] 4.6 mmol/L Normal 3.5-5.1 [facility] Comment on above: Performed By: #### C BC, BMP #### [facility] [address] Sodium [Moles/Vol] 135 mmol/L Low 136-146 [facility] Comment on above: Performed By: #### C BC, BMP #### [facility] [address] Urea nitrogen [Mass/Vol] 11 mg/dL Normal 9-23 [facility] Comment on above: Performed By: #### C BC, BMP #### [facility] [address] Basophils Auto (Bld) [#/Vol] Ordered By: Raul Quan on 02-05-2022 Basophils (Bld) [#/Vol] 0.1 10*3/uL 0.0-0.2 [facility] Basophils/100 WBC Auto (Bld) Ordered By: Raul Quan on 02-05-2022 Basophils/100 WBC (Bld) 0.6 % . [facility] Complete Blood Count Auto Di ffon 02-05-2022 Basophils (Bld) [#/Vol] 0.1 10*3/uL Normal 0.0-0.2 [facility] Comment on above: Result Comment: PERF ORMED BY: [place] [address] PATHOLOGIST [employer]PORT OPERATIONS SPECIALIST ZENA CASTELLON M.D. Performed By: #### C BC, BMP #### [address] Basophils/100 WBC (Bld) 0.6 % Normal . [facility] Comment on above: Performed By: #### C BC, BMP #### [address] Eosinophils (Bld) [#/Vol] 0.1 10*3/uL Normal 0.0-0.45 [facility] Comment on above: Performed By: #### C ESAN, BMP #### [address] Eosinophils/100 WBC (Bld) 0.7 % Normal . [facility] Comment on above: Performed By: #### C SEAN, BMP #### [address] Erythrocyte distribution width (RBC) [Ratio] 13.8 % Normal 12.0-14.8 [facility] Comment on above: Performed By: #### C SEAN, BMP #### [address] Hematocrit (Bld) [Volume fraction] 34.6 % Low 38.8-50.0 [facility] Comment on above: Performed By: #### C BC, BMP #### [address] Hemoglobin (Bld) [Mass/Vol] 11.4 g/dL Low 13.0-17.0 [facility] Comment on above: Performed By: #### C BC, BMP #### [address] Lymphocytes (Bld) [#/Vol] 1.5 10*3/uL Normal 1.00-4.8 [facility] Comment on above: Performed By: #### C BC, BMP #### [address] Lymphocytes/100 WBC (Bld) 14.4 % Normal . [facility] Comment on above: Performed By: #### C BC, BMP #### [address] MCH (RBC) [Entitic mass] 30.1 pg Normal 27.5-35.2 [facility] Comment on above: Performed By: #### C BC, BMP #### [address] MCV (RBC) [Entitic vol] 91.6 fL Normal 83.5-101 [facility] Comment on above: Performed By: #### C BC, BMP #### [address] Mean Corpuscular HGB Conc 32.9 g/dL Normal 32.5-35.6 [facility] Comment on above: Performed By: #### C BC, BMP #### [address] Monocytes (Bld) [#/Vol] 1.5 10*3/uL High 0.0-0.8 [facility] Comment on above: Performed By: #### C BC, BMP #### [address] Monocytes/100 WBC (Bld) 14.8 % Normal . [facility] Comment on above: Performed By: #### C BC, BMP #### [address] Neutrophils (Bld) [#/Vol] 7.1 10*3/uL Normal 1.8-7.7 [facility] Comment on above: Performed By: #### C BC, BMP #### [address] Neutrophils/100 WBC (Bld) 69.5 % Normal . [facility] Comment on above: Performed By: #### C BC, BMP #### [address] NRBC% 0.1 /100{WBC} Normal 0-0.5 [facility] Comment on above: Performed By: #### C SEAN, BMP #### [facility] [address] Platelet mean volume (Bld) [Entitic vol] 7.9 fL Normal 6.6-10.1 [facility] Comment on above: Performed By: #### C SEAN, BMP #### [facility] [address] Platelets (Bld) [#/Vol] 142 10*3/uL Significant change down 150-450 [facility] Comment on above: Performed By: #### C SEAN, BMP #### [facility] [address] RBC (Bld) [#/Vol] 3.77 10*6/uL Low 3.90-5.60 [facility] Comment on above: Performed By: #### C SEAN, BMP #### [facility] [address] WBC (Bld) [#/Vol] 10.3 10*3/uL Normal 4.1-10.5 [facility] Comment on above: Performed By: #### C SEAN, BMP #### [address] Creatinine and Glomerular fi ltration rate.predicted panel (S/P/Bld)Ordered By: Raul Quan on 02-05-2022 Creatinine [Mass/Vol] 0.94 mg/dL 0.64-1.27 [facility] Eosinophils Auto (Bld) [#/Vo l]Ordered By: Raul Quan on 02-05-2022 Eosinophils (Bld) [#/Vol] 0.1 10*3/uL 0.0-0.45 [facility] Eosinophils/100 WBC Auto (Bl d)Ordered By: Raul Quan on 02-05-2022 Eosinophils/100 WBC (Bld) 0.7 % . [facility] Erythrocyte distribution wid th Auto (RBC) [Ratio]Ordered By: Raul Quan on 02-05-2022 Erythrocyte distribution width (RBC) [Ratio] 13.8 % 12.0-14.8 [facility] Estimated glomerular filtrat ion rate (GFR) non- AmericanOrdered By: Raul Quan on 02-05-2022 GFR/1.73 sq M.predicted among non-blacks MDRD (S/P/Bld) [Vol rate/Area] > 60 mL/Min [facility] Hematocrit Auto (Bld) [Volum e fraction]Ordered By: Raul Quan on 02-05-2022 Hematocrit (Bld) [Volume fraction] 34.6 % 38.8-50.0 [facility] Hemoglobin [Mass/volume] in BloodOrdered By: Raul Quan on 02-05-2022 Hemoglobin (Bld) [Mass/Vol] 11.4 g/dL 13.0-17.0 [facility] Leukocytes [#/volume] correc shyann for nucleated erythrocytes in Blood by Automated counOrdered By: Raul Quan on 02-05-2022 WBC corrected for nucl RBC Auto (Bld) [#/Vol] 10.3 10*3/uL 4.1-10.5 [facility] Lymphocytes Auto (Bld) [#/Vo l]Ordered By: Raul Quan on 02-05-2022 Lymphocytes (Bld) [#/Vol] 1.5 10*3/uL 1.00-4.8 [facility] Lymphocytes/100 WBC Auto (Bl d)Ordered By: Raul Quan on 02-05-2022 Lymphocytes/100 WBC (Bld) 14.4 % . [facility] MCH Auto (RBC) [Entitic mass ]Ordered By: Raul Quan on 02-05-2022 MCH (RBC) [Entitic mass] 30.1 pg 27.5-35.2 [facility] MCHC Auto (RBC) [Mass/Vol]Or dered By: Raul Quan on 02-05-2022 MCHC (RBC) [Mass/Vol] 32.9 g/dL 32.5-35.6 [facility] MCV Auto (RBC) [Entitic vol] Ordered By: Raul Quan on 02-05-2022 MCV (RBC) [Entitic vol] 91.6 fL 83.5-101 [facility] Monocytes Auto (Bld) [#/Vol] Ordered By: Raul Quan on 02-05-2022 Monocytes (Bld) [#/Vol] 1.5 10*3/uL 0.0-0.8 [facility] Monocytes/100 WBC Auto (Bld) Ordered By: Raul Quan on 02-05-2022 Monocytes/100 WBC (Bld) 14.8 % . [facility] Neutrophils Auto (Bld) [#/Vo l]Ordered By: Raul Quan on 02-05-2022 Neutrophils (Bld) [#/Vol] 7.1 10*3/uL 1.8-7.7 [facility] Neutrophils/100 WBC Auto (Bl d)Ordered By: Raul Quan on 02-05-2022 Neutrophils/100 WBC (Bld) 69.5 % . [facility] No Panel InformationOrdered By: Raul Quan on 02-05-2022 Estimated GFR () > 60 mL/Min [facility] Comment on above: GFR estimated refere nce range: According to KDOQI guidelines, <60 ml/min/1.73m2 is sufficient to diagnose a patient with chronic kidney disease. Pharmacy Creatinine Clearance (Chem 57.50 [facility] Nucleated erythrocytes [Pres ence] in Blood by Automated countOrdered By: Raul Quan on 02-05-2022 Nucleated RBC Auto Ql (Bld) 0.1 /100{WBC} 0-0.5 [facility] Platelet mean volume Auto (B ld) [Entitic vol]Ordered By: Raul Quan on 02-05-2022 Platelet mean volume (Bld) [Entitic vol] 7.9 fL 6.6-10.1 [facility] Platelets Auto (Bld) [#/Vol] Ordered By: Raul Quan on 02-05-2022 Platelets (Bld) [#/Vol] 142 10*3/uL 150-450 [facility] Comment on above: Delta: 198 on 11/30/ 22-0825 RBC Auto (Bld) [#/Vol]Ordere d By: Raul Quan on 02-05-2022 RBC (Bld) [#/Vol] 3.77 10*6/uL 3.90-5.60 [facility] Serum or plasma anion gap de terminationOrdered By: Raul Quan on 02-05-2022 Anion gap [Moles/Vol] 10.4 mmol/L 6.0-15.0 [facility] Serum or plasma calcium richy urement (mass/volume)Ordered By: Raul Quan on 02-05-2022 Calcium [Mass/Vol] 8.4 mg/dL 8.2-10.2 [facility] Serum or plasma chloride young surement (moles/volume)Ordered By: Raul Quan on 02-05-2022 Chloride [Moles/Vol] 101 mmol/L 95-114 [facility] Serum or plasma glucose richy urement (mass/volume)Ordered By: Raul Quan on 02-05-2022 Glucose [Mass/Vol] 109 mg/dL 70-100 [facility] Comment on above: ADA recommended refe rence rangeRandom Glucose Reference Range is dependent on time and content of last meal. Glucose of more than 200 mg/dL in a nonstressed, ambulatory subject supports the diagnosis of Diabetes Mellitus. Serum or plasma potassium me asurement (moles/volume)Ordered By: Raul Quan on 02-05-2022 Potassium [Moles/Vol] 4.6 mmol/L 3.5-5.1 [facility] Serum or plasma sodium measu rement (moles/volume)Ordered By: Raul Quan on 02-05-2022 Sodium [Moles/Vol] 135 mmol/L 136-146 [facility] Serum or plasma total carbon dioxide measurement (moles/volume)Ordered By: Raul Quan on 02-05-2022 CO2 [Moles/Vol] 28.2 mmol/L 22.0-30.0 [facility] Serum or plasma urea nitroge n measurement (mass/volume)Ordered By: Raul Quan on 02-05-2022 Urea nitrogen [Mass/Vol] 11 mg/dL 9-23 [facility] WBC Auto (Bld) [#/Vol]Ordere d By: Raul Quan on 02-05-2022 WBC (Bld) [#/Vol] 10.3 10*3/uL 4.1-10.5 [facility] Antibody Identificationon Antibody Identification COLD Normal [facility] Basic Metabolic Panelon 01-08 Anion gap [Moles/Vol] 13.9 mmol/L Normal 6.0-15.0 [facility] Comment on above: Performed By: #### C BC, BMP #### [facility] [address] Calcium [Mass/Vol] 9.0 mg/dL Normal 8.2-10.2 [facility] Comment on above: Performed By: #### C BC, BMP #### [facility] [address] [place] [address] [place] Chloride [Moles/Vol] 101 mmol/L Normal 95-114 [facility] Comment on above: Performed By: #### C BC, BMP #### [facility] [address] [place] [address] [place] CO2 [Moles/Vol] 24.4 mmol/L Normal 22.0-30.0 [facility] Comment on above: Performed By: #### C BC, BMP #### [facility] [address] [place] [address] [place] Creatinine [Mass/Vol] 0.81 mg/dL Normal 0.64-1.27 [facility] Comment on above: Performed By: #### C BC, BMP #### [facility] [address] [place] [address] [place] Creatinine Clr Calc Pharmacy 66.73 [facility] Comment on above: Result Comment: PERF ORMED BY: [place] [address] PATHOLOGIST [employer] OPERATIONS SPECIALIST ZENA CASTELLON M.D. Performed By: #### C BC, BMP #### [address] Estimated GFR ( Jojo > 60 [facility] Comment on above: Result Comment: GFR estimated reference range: According to KDOQI guidelines, <60 ml/min/1.73m2 is sufficient to diagnose a patient with chronic kidney disease. Performed By: #### C BC, BMP #### [address] Estimated GFR (Non- Am > 60 [facility] Comment on above: Performed By: #### C BC, BMP #### [address] Glucose [Mass/Vol] 124 mg/dL High 70-100 [facility] Comment on above: Result Comment: [place] Glucose Reference Range is dependent on time and content of last meal. Glucose of more than 200 mg/dL in a nonstressed, ambulatory subject supports the diagnosis of Diabetes Mellitus. ADA recommended reference range Performed By: #### C BC, BMP #### [address] Potassium [Moles/Vol] 4.3 mmol/L Normal 3.5-5.1 [facility] Comment on above: Performed By: #### C BC, BMP #### [address] Sodium [Moles/Vol] 135 mmol/L Low 136-146 [facility] Comment on above: Performed By: #### C BC, BMP #### [address] Urea nitrogen [Mass/Vol] 14 mg/dL Normal 9-23 [facility] Comment on above: Performed By: #### C BC, BMP #### [address] Blood Bank Pathologist Manny oneill 02-04-2022 Blood Bank Pathologist Review Sent to Pathology [facility] Comment on above: Result Comment: PERF ORMED BY: [place] [address] PATHOLOGIST [employer] OPERATIONS SPECIALIST ZENA CASTELLON M.D. Complete Blood Count Auto Di ffon 02-04-2022 Basophils (Bld) [#/Vol] 0.1 10*3/uL Normal 0.0-0.2 [facility] Comment on above: Result Comment: PERF ORMED BY: [place] [address] PATHOLOGIST [employer] OPER[employer] SPECIALIST ZENA CASTELLON M.D. Performed By: #### C BC #### [address] Basophils/100 WBC (Bld) 0.6 % Normal . [facility] Comment on above: Performed By: #### C BC #### [address] Eosinophils (Bld) [#/Vol] 0.1 10*3/uL Normal 0.0-0.45 [facility] Comment on above: Performed By: #### C BC #### [address] Eosinophils/100 WBC (Bld) 0.9 % Normal . [facility] Comment on above: Performed By: #### C BC #### [address] Erythrocyte distribution width (RBC) [Ratio] 13.7 % Normal 12.0-14.8 [facility] Comment on above: Performed By: #### C BC #### [address] Hematocrit (Bld) [Volume fraction] 37.5 % Low 38.8-50.0 [facility] Comment on above: Performed By: #### C BC #### [address] Hemoglobin (Bld) [Mass/Vol] 12.4 g/dL Low 13.0-17.0 [facility] Comment on above: Performed By: #### C BC #### [address] Lymphocytes (Bld) [#/Vol] 1.5 10*3/uL Normal 1.00-4.8 [facility] Comment on above: Performed By: #### C BC #### [address] Lymphocytes/100 WBC (Bld) 16.4 % Normal . [facility] Comment on above: Performed By: #### C BC #### [address] MCH (RBC) [Entitic mass] 30.2 pg Normal 27.5-35.2 [facility] Comment on above: Performed By: #### C BC #### [address] MCV (RBC) [Entitic vol] 91.5 fL Normal 83.5-101 [facility] Comment on above: Performed By: #### C BC #### [address] Mean Corpuscular HGB Conc 33.0 g/dL Normal 32.5-35.6 [facility] Comment on above: Performed By: #### C BC #### [place] [address] [place] Monocytes (Bld) [#/Vol] 1.1 10*3/uL High 0.0-0.8 [facility] Comment on above: Performed By: #### C BC #### [address] Monocytes/100 WBC (Bld) 12.0 % Normal . [facility] Comment on above: Performed By: #### C BC #### [address] Neutrophils (Bld) [#/Vol] 6.5 10*3/uL Normal 1.8-7.7 [facility] Comment on above: Performed By: #### C BC #### [address] Neutrophils/100 WBC (Bld) 70.1 % Normal . [facility] Comment on above: Performed By: #### C BC #### [address] [place] [address] [place] NRBC% 0.0 /100{WBC} Normal 0-0.5 [facility] Comment on above: Performed By: #### C BC #### [address] Platelet mean volume (Bld) [Entitic vol] 8.5 fL Normal 6.6-10.1 [facility] Comment on above: Performed By: #### C BC #### [address] Platelets (Bld) [#/Vol] 198 10*3/uL Normal 150-450 [facility] Comment on above: Performed By: #### C BC #### [address] RBC (Bld) [#/Vol] 4.10 10*6/uL Normal 3.90-5.60 [facility] Comment on above: Performed By: #### C BC #### [address] WBC (Bld) [#/Vol] 9.3 10*3/uL Normal 4.1-10.5 [facility] Comment on above: Performed By: #### C BC #### [address] Direct [place] 02-04-2022 Polyspecific AHG Negative Normal [facility] [place] 02-04-2022 L ------ Specimen: [id number] Received: 02/04/22 Status: JUSTINA Henley Num: [id number] Spec Type: Impression Subm Dr: Rocio Mac, Tissues: PATHBBK Procedures: PATHREVIEW Age/ Patient Sex Location Account Attending Physician Chico Baker 81/M 4N [id number] Raul Quan MD SPEC NUM: [id number] RECD: 02/04/22 STATUS: JUSTINA HENLEY NUM: [id number] SHYANN: 02/04/22- SUBM DR: Rocio Mac DO ENTERED: 02/04/22 [facility] DR: SPEC TYPE: Impression DEPT: CT ORDERED: [...] insignificant. Specimen: [id number] Received: 02/04/22 Status: JUSTINA Hartmannhoda Num: [id number] Spec Type: Impression Subm Dr: Rocio Mac DO Tissues: PATHBBK Procedures: PATHREVIEW Patient: Chico Baker [id number] (Continued) Signed (signature on file) Judah Alvarado MD 02/04/22 3974 Normal [facility] Type and Screenon 02-04-2022 ABO and Rh group Nom (Bld) Blood group A Rh(D) positive Normal [facility] Comment on above: Result Comment: PERF ORMED BY: [facility] [address] PATHOLOGIST AIRPORT OPERATIONS SPECIALIST ZENA CASTELLON M.D. [facility]07 SARS-CoV-2 (COVID-19) RNA JESSIE+probe Ql (Unsp spec) Not detected Normal NOT DETECTED [facility] Comment on above: Result Comment: This test is not yet approved or cleared by the [place] FDA. When there are no FDA-approved or cleared tests available, and other criteria are met, FDA can make tests available under an emergency access mechanism called an Emergency Use Authorization (EUA). The EUA for this test is supported by the [place] of Health and Human Service's (HHS's) declaration [...] consistent with SARS-CoV-2. Performed By: #### [facility] #### [facility] [address] [place] [address] Dr. Jodi Oglesby US carotid doppler BIon 01-06 US carotid doppler BI [facility] [address] Ultrasound Report Signed Patient: Chico Baker MR#: [id number] : 1940 Acct:[id number] Age/Sex: 81 / M ADM Date: 01/20/22 Loc: [facility] Room: Type: [facility] Attending Dr: Tamar Perea DIRECTOR SCRIPT-C Ordering Provider: Tamar Perea APRN Date of [...] Raul Quan M.D.01/20/2022 11:32 AM Dictation Location: [place] [address] Tech: Aby Mueller Transcribed By: ALEX 01/20/22 113 Dictated By: Raul Quan MD 01/20/22 1130 Signed By: 01/20/22 113 [facility] CBC AUTO DIFFon 12-08-2021 BASO # 0.1 103/ul Normal 0.0-0.1 [facility] Comment on above: Performed By: #### D ATA1C #### [facility] [address] [address] [address] Jodi Oglesby Basophils/100 WBC (Bld) 0.5 % Normal 0.2-2.0 [facility] Comment on above: Performed By: #### D ATA1C #### [facility] [address] [address] [address] Jodi Oglesby EO # 0.1 103/ul Normal 0.0-0.7 [facility] Comment on above: Performed By: #### D ATA1C #### [facility] [address] [address] [address] Jodi Oglesby Eosinophils/100 WBC (Bld) 1.4 % Normal 0.9-7.0 [facility] Comment on above: Performed By: #### D ATA1C #### [facility] [address] [address] [address] Jodi Oglesby Erythrocyte distribution width (RBC) [Ratio] 13.0 % Normal 11.0-15.0 [facility] Comment on above: Performed By: #### D ATA1C #### [facility] [address] [address] [address] Jodi Oglesby Hematocrit (Bld) [Volume fraction] 36.1 % Critically low 42.0-54.0 [facility] Comment on above: Performed By: #### D ATA1C #### [facility] [address] [address] [address] Jodi Oglesby Hemoglobin (Bld) [Mass/Vol] 11.2 g/dL Critically low 14.0-18.0 [facility] Comment on above: Performed By: #### D ATA1C #### [facility] [address] [address] [address] Jodi Oglesby IG # 0.04 10e3/ul Critically high 0.00-0.03 [facility] Comment on above: Performed By: #### D ATA1C #### [facility] [address] [address] [address] Jodi Oglesby IG % 0.4 % Normal 0.0-0.5 [facility] Comment on above: Performed By: #### D ATA1C #### [facility] [address] [address] [address] Jodi Oglesby LYMPH # 1.8 103/ul Normal 1.2-3.8 [facility] Comment on above: Performed By: #### D ATA1C #### [facility] [address] [place] [address] Dr. Jodi Oglesby Lymphocytes/100 WBC (Bld) 17.2 % Critically low 20.5-60.0 [facility] Comment on above: Performed By: #### D ATA1C #### [facility] [address] [place] [address] Dr. Jodi Oglesby MANUAL DIFF REQ NO Normal [facility] Comment on above: Performed By: #### D ATA1C #### [facility] [address] [place] [address] Dr. Jodi Oglesby MCH (RBC) [Entitic mass] 30.4 pg Normal 25.9-34.0 [facility] Comment on above: Performed By: #### D ATA1C #### [facility] [address] [place] [address] Dr. Jodi Oglesby MCHC (RBC) [Mass/Vol] 31.0 g/dL Normal 29.9-35.2 [facility] Comment on above: Performed By: #### D ATA1C #### [facility] [address] [place] [address] Dr. Jodi Oglesby MCV (RBC) [Entitic vol] 98.1 fL Critically high 80.0-94.0 [facility] Comment on above: Performed By: #### D ATA1C #### [facility] [address] [place] [address] Dr. Jodi Oglesby MONO # 1.0 103/ul Critically high 0.3-0.8 [facility] Comment on above: Performed By: #### D ATA1C #### [facility] [address] [address] [address] Jodi Oglesby Monocytes/100 WBC (Bld) 9.8 % Normal 1.7-12.0 [facility] Comment on above: Performed By: #### D ATA1C #### [facility] [address] [address] [address] Jodi Oglesby NEUT # 7.3 103/ul Critically high 1.4-6.5 [facility] Comment on above: Performed By: #### D ATA1C #### [facility] [address] [address] [address] Jodi Oglesby Neutrophils/100 WBC (Bld) 70.7 % Normal 43.0-75.0 [facility] Comment on above: Performed By: #### D ATA1C #### [facility] [address] [place] [address] Dr. Jodi Oglesby Platelet mean volume (Bld) [Entitic vol] 9.1 fL Critically low 9.5-13.5 [facility] Comment on above: Performed By: #### D ATA1C #### [facility] [address] [address] [address] Jodi Oglesby PLT 214 103/ul Normal 150-450 [facility] Comment on above: Performed By: #### D ATA1C #### [facility] [address] [place] [address] Dr. Jodi Oglesby RBC 3.68 106/ul Critically low 4.70-6.10 [facility] Comment on above: Performed By: #### D ATA1C #### [facility] [address] [place] [address] Dr. Jodi Oglesby WBC 10.3 103/ul Normal 4.0-11.0 [facility] Comment on above: Performed By: #### D ATA1C #### [facility] [address] [address] [address] Jodi Oglesby PROF CHEM 8 (BAS METB)on Anion gap [Moles/Vol] 9.7 mmol/L Normal [facility] Comment on above: Performed By: #### C BC #### [facility] [address] [address] [address] Jodi Oglesby Calcium [Mass/Vol] 8.9 mg/dL Normal 8.5-10.1 [facility] Comment on above: Performed By: #### C BC #### [facility] [address] [address] [address] Jodi Oglesby Chloride [Moles/Vol] 102 mmol/L Normal 98-107 [facility] Comment on above: Performed By: #### C BC #### [facility] [address] [place] [address] Dr. Jodi Oglesby CO2 [Moles/Vol] 31.0 mmol/L Normal 21.0-32.0 [facility] Comment on above: Performed By: #### C BC #### [facility] [address] [place] [address] Dr. Jodi Oglesby Creatinine [Mass/Vol] 0.85 mg/dL Normal 0.70-1.30 [facility] Comment on above: Performed By: #### C BC #### [facility] [address] [place] [address] Dr. Jodi Oglesby EGFR-AF LIBERIAN >60 Normal >=60 [facility] Comment on above: Performed By: #### C BC #### [facility] [address] [place] [address] Dr. Jodi Oglesby EGFR-NON AF LIBERIAN >60 Normal >=60 [facility] Comment on above: Performed By: #### C BC #### [facility] [address] [place] [address] Dr. Jodi Oglesby Glucose [Mass/Vol] 106 mg/dL Normal 74-106 [facility] Comment on above: Performed By: #### C BC #### [facility] [address] [place] [address] Dr. Jodi Oglesby Potassium [Moles/Vol] 4.7 mmol/L Normal 3.5-5.1 [facility] Comment on above: Performed By: #### C BC #### [facility] [address] [place] [address] Dr. Jodi Oglesby Sodium [Moles/Vol] 138 mmol/L Normal 136-145 [facility] Comment on above: Performed By: #### C BC #### [facility] [address] [address] [address] Jodi Oglesby Urea nitrogen [Mass/Vol] 14.0 mg/dL Normal 7.0-18.0 [facility] Comment on above: Performed By: #### C BC #### [facility] [id number] Jodi Oglesby Urea nitrogen/Creatinine [Mass ratio] 16.5 mg/mg Normal [facility] Comment on above: Performed By: #### C BC #### [facility] [id number] Jodi Oglesby XR CHEST 2 Von [...] ROCIO RICARDO Date: 2021-12-08 16:20 Normal [facility] Covid-19 PCR (CVDTB)on 11-07 SARS-CoV-2 (COVID-19) RNA JESSIE+probe Ql (Unsp spec) Not detected Normal NOT DETECTED [facility] Comment on above: Result Comment: This test is not yet approved or cleared by the [place] FDA. When there are no FDA-approved or cleared tests available, and other criteria are met, FDA can make tests available under an emergency access mechanism called an Emergency Use Authorization (EUA). The EUA for this test is supported by the [employer] Operator of Health and Human Service's (HHS's) [...] SARS-CoV-2. Performed By: #### C VDTB #### [facility] [address] [place] [address] Dr. Jodi Oglesby CBC AUTO DIFFon 11-11-2021 BASO # 0.1 103/ul Normal 0.0-0.1 [facility] Comment on above: Performed By: #### C BC #### [facility] [address] [place] [address] Dr. Jodi Oglesby Basophils/100 WBC (Bld) 0.5 % Normal 0.2-2.0 [facility] Comment on above: Performed By: #### C BC #### [facility] [address] [place] [address] Dr. Jodi Oglesby EO # 0.2 103/ul Normal 0.0-0.7 [facility] Comment on above: Performed By: #### C BC #### [facility] [address] [place] [address] Dr. Jodi Oglesby Eosinophils/100 WBC (Bld) 1.9 % Normal 0.9-7.0 [facility] Comment on above: Performed By: #### C BC #### [facility] [address] [place] [address] Dr. Jodi Oglesby Erythrocyte distribution width (RBC) [Ratio] 13.6 % Normal 11.0-15.0 [facility] Comment on above: Performed By: #### C BC #### [facility] [address] [place] [address] Dr. Jodi Oglesby Hematocrit (Bld) [Volume fraction] 28.6 % Critically low 42.0-54.0 [facility] Comment on above: Performed By: #### C BC #### [facility] [address] [place] [address] Dr. Jodi Oglesby Hemoglobin (Bld) [Mass/Vol] 9.4 g/dL Critically low 14.0-18.0 [facility] Comment on above: Performed By: #### C BC #### [facility] [address] [place] [address] Dr. Jodi Oglesby IG # 0.08 10e3/ul Critically high 0.00-0.03 [facility] Comment on above: Performed By: #### C BC #### [facility] [address] [place] [address] Dr. Jodi Oglesby IG % 0.8 % Critically high 0.0-0.5 [facility] Comment on above: Performed By: #### C BC #### [facility] [address] [place] [address] Dr. Jodi Oglesby LYMPH # 1.3 103/ul Normal 1.2-3.8 [facility] Comment on above: Performed By: #### C BC #### [facility] [address] [place] [address] Dr. Jodi Oglesby Lymphocytes/100 WBC (Bld) 13.0 % Critically low 20.5-60.0 [facility] Comment on above: Performed By: #### C BC #### [facility] [address] [place] [address] Dr. Jodi Oglesby MANUAL DIFF REQ NO Normal [facility] Comment on above: Performed By: #### C BC #### [facility] [address] [place] [address] Dr. Jodi Oglesby MCH (RBC) [Entitic mass] 31.5 pg Normal 25.9-34.0 [facility] Comment on above: Performed By: #### C BC #### [facility] [address] [place] [address] Dr. Jodi Oglesby MCHC (RBC) [Mass/Vol] 32.9 g/dL Normal 29.9-35.2 [facility] Comment on above: Performed By: #### C BC #### [facility] [address] [place] [address] Dr. Jodi Oglesby MCV (RBC) [Entitic vol] 96.0 fL Critically high 80.0-94.0 [facility] Comment on above: Performed By: #### C BC #### [facility] [address] [place] [address] Dr. Jodi Oglesby MONO # 1.1 103/ul Critically high 0.3-0.8 [facility] Comment on above: Performed By: #### C BC #### [facility] [address] [place] [address] Dr. Jodi Oglesby Monocytes/100 WBC (Bld) 10.7 % Normal 1.7-12.0 [facility] Comment on above: Performed By: #### C BC #### [facility] [address] [place] [address] Dr. Jodi Oglesby NEUT # 7.4 103/ul Critically high 1.4-6.5 [facility] Comment on above: Performed By: #### C BC #### [facility] [address] [place] [address] Dr. Jodi Oglesby Neutrophils/100 WBC (Bld) 73.1 % Normal 43.0-75.0 [facility] Comment on above: Performed By: #### C BC #### [facility] [address] [place] [address] Dr. Jodi Oglesby Platelet mean volume (Bld) [Entitic vol] 9.3 fL Critically low 9.5-13.5 [facility] Comment on above: Performed By: #### C BC #### [facility] [address] [place] [address] Dr. Jodi Oglesby PLT 288 103/ul Normal 150-450 [facility] Comment on above: Performed By: #### C BC #### [facility] [address] [place], [place] [id number] Dr. Jodi Oglesby RBC 2.98 106/ul Critically low 4.70-6.10 [facility] Comment on above: Performed By: #### C BC #### [facility] [address] [place] [address] Dr. Jodi Oglesby WBC 10.1 103/ul Normal 4.0-11.0 [facility] Comment on above: Performed By: #### C #### [facility] [address] ABD/PELVIS WO CONon [...] TAYO CASTILLO Date: 2021-11-11 03:10 Normal [facility] Covid-19 PCR (CVDTBH)on SARS-CoV-2 (COVID-19) RNA JESSIE+probe Ql (Unsp spec) Not detected Normal NOT DETECTED [facility] Comment on above: [...] for this test is supported by the [employer] Operator of Health and Human Service's declaration [...] used). Performed By: #### C BC #### [facility] [address] [address] [address] Jodi LOOMIS BLD IMMUNO SCREENon OCCULT BLOOD Negative Normal NEGATIVE [facility] Comment on above: Performed By: #### D ATA1C #### [facility] [address] [address] [address] Jodi Oglesby PROF 14(COMP METB)on 022 Albumin [Mass/Vol] 3.0 g/dL Critically low 3.4-5.0 [facility] Comment on above: Performed By: #### C MP #### [facility] [address] [address] [address] Jodi Oglesby Albumin/Globulin [Mass ratio] 0.8 {ratio} Normal [facility] Comment on above: Performed By: #### C MP #### [facility] [address] [place] [address] Dr. Jodi Oglesby ALP [Catalytic activity/Vol] 126 U/L Critically high 46-116 [facility] Comment on above: Performed By: #### C MP #### [facility] [address] [place] [address] Dr. Jodi Oglesby ALT [Catalytic activity/Vol] 22 U/L Normal 16-63 [facility] Comment on above: Performed By: #### C MP #### [facility] [address] [place] [address] Dr. Jodi Oglesby Anion gap [Moles/Vol] 16.7 mmol/L Normal [facility] Comment on above: Performed By: #### C MP #### [facility] [address] [address] [address] Jodi Oglesby AST [Catalytic activity/Vol] 23 U/L Normal 15-37 [facility] Comment on above: Performed By: #### C MP #### [facility] [address] [place] [address] Dr. Jodi Oglesby Bilirubin [Mass/Vol] 0.6 mg/dL Normal 0.2-1.0 [facility] Comment on above: Performed By: #### C MP #### [facility] [address] [place] [address] Dr. Jodi Oglesby Calcium [Mass/Vol] 8.5 mg/dL Normal 8.5-10.1 [facility] Comment on above: Performed By: #### C MP #### [facility] [address] [address] [address] Jodi Oglesby Chloride [Moles/Vol] 99 mmol/L Normal 98-107 [facility] Comment on above: Performed By: #### C MP #### [facility] [address] [address] [address] Jodi Oglesby CO2 [Moles/Vol] 27.4 mmol/L Normal 21.0-32.0 [facility] Comment on above: Performed By: #### C MP #### [facility] [address] [address] [address] Jodi Oglesby Creatinine [Mass/Vol] 0.80 mg/dL Normal 0.70-1.30 [facility] Comment on above: Performed By: #### C MP #### [facility] [address] [place] [address] Dr. Jodi Oglesby EGFR-AF LIBERIAN >60 Normal >=60 [facility] Comment on above: Performed By: #### C MP #### [facility] [address] [place] [address] Dr. Jodi Oglesby EGFR-NON AF LIBERIAN >60 Normal >=60 [facility] Comment on above: Performed By: #### C MP #### [facility] [address] [place] [address] Dr. Jodi Oglesby Globulin (S) [Mass/Vol] 3.9 g/dL Normal [facility] Comment on above: Performed By: #### C MP #### [facility] [address] [place] [address] Dr. Jodi Oglesby Glucose [Mass/Vol] 116 mg/dL Critically high 74-106 T [facility] Comment on above: Performed By: #### C MP #### [facility] [address] [place] [address] Dr. Jodi Oglesby Potassium [Moles/Vol] 4.1 mmol/L Normal 3.5-5.1 [facility] Comment on above: Performed By: #### C MP #### [facility] [address] [place], [place] [address] Dr. Jodi Oglesby Protein [Mass/Vol] 6.9 g/dL Normal 6.4-8.2 [facility] Comment on above: Performed By: #### C MP #### [facility] [address] [place] [address] Dr. Jodi Oglesby Sodium [Moles/Vol] 129 mmol/L Critically low 136-145 [facility] Comment on above: Performed By: #### C MP #### [facility] [address] [address] [address] Jodi Oglesby Urea nitrogen [Mass/Vol] 15.0 mg/dL Normal 7.0-18.0 [facility] Comment on above: Performed By: #### C MP #### [facility] [address] [place] [address] Dr. Jodi Oglesby Urea nitrogen/Creatinine [Mass ratio] 18.8 mg/mg Normal [facility] Comment on above: Performed By: #### C MP #### [facility] [address] [place] [address] Dr. Jodi Oglesby PROTIMEon 11-11-2021 INR Coag (PPP) [Relative time] 1.01 {INR} Normal [facility] Comment on above: Performed By: #### P TT, PT #### [facility] [address] [place] [address] Dr. Jodi Oglesby INR GUIDELINES SEE BELOW Normal [facility] Comment on above: Result Comment: ESHA RED INR: 2.0 - 3.0 CONDITIONS NOT LISTED BELOW 2.5 - 3.5 FOR PROSTHETIC HEART VALVE REPLACEMENT 2.5 - 3.5 RECURRENT THROMBOSIS Performed By: #### P TT, PT #### [facility] [address] [place] [address] Dr. Jodi Oglesby PT Coag (PPP) [Time] 10.9 s Normal 9.0-11.6 [facility] Comment on above: Performed By: #### P TT, PT #### [facility] [address] [place] [address] Dr. Jodi Oglesby PTTon 11-11-2021 aPTT Coag (Bld) [Time] 25.4 s Normal 22.3-36.2 [facility] Comment on above: Performed By: #### P TT, PT #### [facility] [address] [place] [address] Dr. Jodi Oglesby CBC AUTO DIFFon 10-26-2021 BASO # 0.0 103/ul Normal 0.0-0.1 [facility] Comment on above: Performed By: #### D ATA1C #### [facility] [address] [place] [address] Dr. Jodi Oglesby Basophils/100 WBC (Bld) 0.3 % Normal 0.2-2.0 [facility] Comment on above: Performed By: #### D ATA1C #### [facility] [address] [place] [address] Dr. Jodi Oglesby EO # 0.1 103/ul Normal 0.0-0.7 [facility] Comment on above: Performed By: #### D ATA1C #### [facility] [address] [place] [address] Dr. Jodi Oglesby Eosinophils/100 WBC (Bld) 0.5 % Critically low 0.9-7.0 [facility] Comment on above: Performed By: #### D ATA1C #### [facility] [address] [place] [address] Dr. Jodi Oglesby Erythrocyte distribution width (RBC) [Ratio] 12.4 % Normal 11.0-15.0 [facility] Comment on above: Performed By: #### D ATA1C #### [facility] [address] [place] [address] Dr. Jodi Oglesby Hematocrit (Bld) [Volume fraction] 39.5 % Critically low 42.0-54.0 [facility] Comment on above: Performed By: #### D ATA1C #### [facility] [address] [place] [address] Dr. Jodi Oglesby Hemoglobin (Bld) [Mass/Vol] 12.8 g/dL Critically low 14.0-18.0 [facility] Comment on above: Performed By: #### D ATA1C #### [facility] [address] [address] [address] Jodi Oglesby IG # 0.07 10e3/ul Critically high 0.00-0.03 [facility] Comment on above: Performed By: #### D ATA1C #### [facility] [address] [address] [address] Jodi Oglesby IG % 0.5 % Normal 0.0-0.5 [facility] Comment on above: Performed By: #### D ATA1C #### [facility] [address] [address] [address] Jodi Oglesby LYMPH # 0.9 103/ul Critically low 1.2-3.8 [facility] Comment on above: Performed By: #### D ATA1C #### [facility] [address] [place] [address] Dr. Jodi Oglesby Lymphocytes/100 WBC (Bld) 6.3 % Critically low 20.5-60.0 [facility] Comment on above: Performed By: #### D ATA1C #### [facility] [address] [place] [address] Dr. Jodi Oglesby MANUAL DIFF REQ NO Normal [facility] Comment on above: Performed By: #### D ATA1C #### [facility] [address] [place] [address] Dr. oJdi Oglesby MCH (RBC) [Entitic mass] 30.8 pg Normal 25.9-34.0 [facility] Comment on above: Performed By: #### D ATA1C #### [facility] [address] [address] [address] Jodi Oglesby MCHC (RBC) [Mass/Vol] 32.4 g/dL Normal 29.9-35.2 [facility] Comment on above: Performed By: #### D ATA1C #### [facility] [address] [address] [address] Jodi Oglesby MCV (RBC) [Entitic vol] 95.2 fL Critically high 80.0-94.0 [facility] Comment on above: Performed By: #### D ATA1C #### [facility] [address] [address] [address] Jodi Oglesby MONO # 0.9 103/ul Critically high 0.3-0.8 [facility] Comment on above: Performed By: #### D ATA1C #### [facility] [address] [place] [address] Dr. Jodi Oglesby Monocytes/100 WBC (Bld) 6.2 % Normal 1.7-12.0 [facility] Comment on above: Performed By: #### D ATA1C #### [facility] [address] [place] [address] Dr. Jodi Oglesby NEUT # 12.8 103/ul Critically high 1.4-6.5 [facility] Comment on above: Performed By: #### Chavez ATA1C #### [facility] [address] [place] [address] Dr. Jodi Oglesby Neutrophils/100 WBC (Bld) 86.2 % Critically high 43.0-75.0 [facility] Comment on above: Performed By: #### Chavez ATA1C #### [facility] [address] [place] [address] Dr. Jodi Oglesby Platelet mean volume (Bld) [Entitic vol] 9.4 fL Critically low 9.5-13.5 [facility] Comment on above: Performed By: #### D ATA1C #### [facility] [address] [place] [address] Dr. Jodi Oglesby PLT 169 103/ul Normal 150-450 [facility] Comment on above: Performed By: #### Chavez ATA1C #### [facility] [address] [place] [address] Dr. Jodi Oglesby RBC 4.15 106/ul Critically low 4.70-6.10 [facility] Comment on above: Performed By: #### D ATA1C #### [facility] [address] [place] [address] Dr. Jodi Oglesby WBC 14.8 103/ul Critically high 4.0-11.0 [facility] Comment on above: Performed By: #### Chavez ATA1C #### [facility] [address] [place] [address] CHEST WO CONon [...] NICOLE SIMMS Date: 2021-10-26 17:38 Normal [facility] Covid-19 PCR (CVDTB)on 10-07 SARS-CoV-2 (COVID-19) RNA JESSIE+probe Ql (Unsp spec) Not detected Normal NOT DETECTED [facility] Comment on above: [...] for this test is supported by the [place] of Health and Human Service's declaration that [...] used). Performed By: #### D ATA1C #### [facility] [address] [place] [address] Dr. Jodi Oglesby PROF CHEM 8 (BAS METB)on Anion gap [Moles/Vol] 11.7 mmol/L Normal [facility] Comment on above: Performed By: #### C BC #### [facility] [address] [place] [address] Dr. Jodi Oglesby Calcium [Mass/Vol] 9.2 mg/dL Normal 8.5-10.1 [facility] Comment on above: Performed By: #### C BC #### [facility] [address] [place] [address] Dr. Jodi Oglesby Chloride [Moles/Vol] 101 mmol/L Normal 98-107 [facility] Comment on above: Performed By: #### C BC #### [facility] [address] [place] [address] Dr. Jodi Oglesby CO2 [Moles/Vol] 27.6 mmol/L Normal 21.0-32.0 [facility] Comment on above: Performed By: #### C BC #### [facility] [address] [place] [address] Dr. Jodi Oglesby Creatinine [Mass/Vol] 0.98 mg/dL Normal 0.70-1.30 [facility] Comment on above: Performed By: #### C BC #### [facility] [address] [place] [address] Dr. Jodi Oglesby EGFR-AF LIBERIAN >60 Normal >=60 [facility] Comment on above: Performed By: #### C BC #### [facility] [address] [place] [address] Dr. Jodi Oglesby EGFR-NON AF LIBERIAN >60 Normal >=60 [facility] Comment on above: Performed By: #### C BC #### [facility] [address] [address] [address] Jodi Oglesby Glucose [Mass/Vol] 119 mg/dL Critically high 74-106 T [facility] Comment on above: Performed By: #### C BC #### [facility] [address] [address] [address] Joid Oglesby Potassium [Moles/Vol] 4.3 mmol/L Normal 3.5-5.1 [facility] Comment on above: Performed By: #### C BC #### [facility] [address] [place] [address] Dr. Jodi Oglesby Sodium [Moles/Vol] 136 mmol/L Normal 136-145 [facility] Comment on above: Performed By: #### C BC #### [facility] [address] [place] [address] Dr. Jodi Oglesby Urea nitrogen [Mass/Vol] 15.0 mg/dL Normal 7.0-18.0 [facility] Comment on above: Performed By: #### C BC #### [facility] [address] [place] [address] Dr. Jodi Oglesby Urea nitrogen/Creatinine [Mass ratio] 15.3 mg/mg Normal [facility] Comment on above: Performed By: #### C BC #### [facility] [address] [place] [address] Dr. Jodi Oglesby XR CLAVICLE RTon 10-26-2021 [...] osteoarthrosis. 3. Osteopenia. Electronically authenticated by: ABY JOVAN Date: 2021-10-26 15:37 Normal [facility] XR ELBOW RT [...] DEL CHAKRABORTY Date: 2021-10-26 17:23 Normal [facility] XR HIP RT 2 3V [...] CHARLES ALEJANDRA Date: 2021-10-26 15:40 Normal [facility] CARDIAC STRESS/REST INJE CTIONon 10-21-2021 [facility] CARDIAC STRESS/REST INJECTION Patient Name: CHICO BAKER STUDY: MYOCARDIAL PERFUSION STRESS TEST WITH LEXISCAN Performing facility: [facility], [address] [place] [address], [address], [address] Provider: Adilene Harrington MD, [facility] PCP: Dr. Jori Dunham Supervising provider: [facility], [facility] INDICATION: AAA Pre-operative risk assessment for AAA scheduled at [facility] on D. HISTORY: Gender: M; Age: 81 y/o ; Height: 0 cm; Weight: 0 kg. HTN; Carotid disease PAD AAA Denies smoking. COMPARISON: Previous nuclear testing completed [id number] at [facility]. Previous echo testing completed on 2020 at [facility]. ACCESSION NUMBER(S): [id number]; [id number]; [id number] ORDERING CLINICIAN: JUDAH HARRINGTON TECHNIQUE: ONE DAY [...] Electronically signed by: ALL HUDSON MD Normal [facility] No Panel Informationon 10-21 Normal -[facility] [address] [place] Work Phone: COVID-19 Positive/NegativeOr dered By: Raul Quan on 10-13-2021 SARS-CoV-2 (COVID-19) N gene JESSIE+probe Ql (Resp) Negative Negative [facility] Comment on above: Testing for SARS-CoV -2 by RT-PCR This test was developed and its performance characteristics determined by [employer] ([employer]) and validated at the [facility]. This test has not been [...] 10-06-2021 Basophils (Bld) [#/Vol] 0.0 10*3/uL 0.0-0.2 [facility] Basophils/100 WBC Auto (Bld) Ordered By: Raul Quan on 10-06-2021 Basophils/100 WBC (Bld) 0.7 % . [facility] Blood hemoglobin measurement (mass/volume)Ordered By: Raul Quan on 10-06-2021 Hemoglobin (Bld) [Mass/Vol] 13.1 g/dL 13.0-17.0 [facility] Blood leukocytes automated c ount (number/volume)Ordered By: Raul Quan on 10-06-2021 WBC (Bld) [#/Vol] 5.2 10*3/uL 4.5-11.0 [facility] Creatinine and Glomerular fi ltration rate.predicted panel (S/P/Bld)Ordered By: Raul Quan on 10-06-2021 Creatinine [Mass/Vol] 0.98 mg/dL 0.64-1.27 [facility] Eosinophils Auto (Bld) [#/Vo l]Ordered By: Raul Quan on 10-06-2021 Eosinophils (Bld) [#/Vol] 0.1 10*3/uL 0.0-0.45 [facility] Eosinophils/100 WBC Auto (Bl d)Ordered By: Raul Quan on 10-06-2021 Eosinophils/100 WBC (Bld) 1.3 % . [facility] Erythrocyte distribution wid th Auto (RBC) [Ratio]Ordered By: Raul Quan on 10-06-2021 Erythrocyte distribution width (RBC) [Ratio] 13.3 % 12.0-14.8 [facility] Estimated glomerular filtrat ion rate (GFR) non- AmericanOrdered By: Raul Quan on 10-06-2021 GFR/1.73 sq M.predicted among non-blacks MDRD (S/P/Bld) [Vol rate/Area] > 60 mL/Min [facility] Hematocrit Auto (Bld) [Volum e fraction]Ordered By: Raul Quan on 10-06-2021 Hematocrit (Bld) [Volume fraction] 40.4 % 38.8-50.0 [facility] Laboratory - Hematology and Cell countsOrdered By: Raul Quan on 10-06-2021 Nucleated RBC/100 WBC (Bld) [Ratio] 0.0 % 0-0.5 [facility] Lymphocytes Auto (Bld) [#/Vo l]Ordered By: Raul Quan on 10-06-2021 Lymphocytes (Bld) [#/Vol] 1.0 10*3/uL 1.00-4.8 [facility] Lymphocytes/100 WBC Auto (Bl d)Ordered By: Raul Quan on 10-06-2021 Lymphocytes/100 WBC (Bld) 18.4 % . [facility] MCH Auto (RBC) [Entitic mass ]Ordered By: Raul Quan on 10-06-2021 MCH (RBC) [Entitic mass] 30.9 pg 27.5-35.2 [facility] MCHC Auto (RBC) [Mass/Vol]Or dered By: Raul Quan on 10-06-2021 MCHC (RBC) [Mass/Vol] 32.5 g/dL 32.5-35.6 [facility] MCV Auto (RBC) [Entitic vol] Ordered By: Raul Quan on 10-06-2021 MCV (RBC) [Entitic vol] 95.2 fL 83.5-101 [facility] Monocytes Auto (Bld) [#/Vol] Ordered By: Raul Quan on 10-06-2021 Monocytes (Bld) [#/Vol] 0.6 10*3/uL 0.0-0.8 [facility] Monocytes/100 WBC Auto (Bld) Ordered By: Raul Quan on 10-06-2021 Monocytes/100 WBC (Bld) 12.0 % . [facility] Neutrophils Auto (Bld) [#/Vo l]Ordered By: Raul Quan on 10-06-2021 Neutrophils (Bld) [#/Vol] 3.5 10*3/uL 1.8-7.7 [facility] Neutrophils/100 WBC Auto (Bl d)Ordered By: Raul Quan on 10-06-2021 Neutrophils/100 WBC (Bld) 67.6 % . [facility] No Panel InformationOrdered By: Raul Quan on 10-06-2021 Estimated GFR () > 60 mL/Min [facility] Comment on above: GFR estimated refere nce range: According to KDOQI guidelines, <60 ml/min/1.73m2 is sufficient to diagnose a patient with chronic kidney disease. Pharmacy Creatinine Clearance (Chem N/A [facility] Platelet mean volume Auto (B ld) [Entitic vol]Ordered By: Raul Quan on 10-06-2021 Platelet mean volume (Bld) [Entitic vol] 8.1 fL 6.6-10.1 [facility] Platelets Auto (Bld) [#/Vol] Ordered By: Raul Quan on 10-06-2021 Platelets (Bld) [#/Vol] 185 10*3/uL 150-450 [facility] RBC Auto (Bld) [#/Vol]Ordere d By: Raul Quan on 10-06-2021 RBC (Bld) [#/Vol] 4.25 10*6/uL 3.90-5.60 [facility] Serum or plasma calcium richy urement (mass/volume)Ordered By: Raul Quan on 10-06-2021 Calcium [Mass/Vol] 9.0 mg/dL 8.2-10.2 [facility] Serum or plasma chloride young surement (moles/volume)Ordered By: Raul Quan on 10-06-2021 Chloride [Moles/Vol] 101 mmol/L 95-114 [facility] Serum or plasma glucose richy urement (mass/volume)Ordered By: Raul Quan on 10-06-2021 Glucose [Mass/Vol] 187 mg/dL 70-100 [facility] Comment on above: ADA recommended refe rence range Random Glucose Reference Range is dependent on time and content of last meal. Glucose of more than 200 mg/dL in a nonstressed, ambulatory subject supports the diagnosis of Diabetes Mellitus. Serum or plasma potassium me asurement (moles/volume)Ordered By: Raul Quan on 10-06-2021 Potassium [Moles/Vol] 4.0 mmol/L 3.5-5.1 [facility] Serum or plasma sodium measu rement (moles/volume)Ordered By: Raul Quan on 10-06-2021 Sodium [Moles/Vol] 135 mmol/L 136-146 [facility] Serum or plasma total carbon dioxide measurement (moles/volume)Ordered By: Raul Quan on 10-06-2021 CO2 [Moles/Vol] 25.1 mmol/L 22.0-30.0 [facility] Serum or plasma urea nitroge n measurement (mass/volume)Ordered By: Raul Quan on 10-06-2021 Urea nitrogen [Mass/Vol] 13 mg/dL 9-23 [facility] CBC AUTO DIFFon 09-22-2021 BASO # 0.0 103/ul Normal 0.0-0.1 [facility] Comment on above: Performed By: #### C BC #### [facility] [address] [address] [address] Jodi Oglesby Basophils/100 WBC (Bld) 0.3 % Normal 0.2-2.0 [facility] Comment on above: Performed By: #### C BC #### [facility] [address] [place] [address] Dr. Jodi Oglesby EO # 0.1 103/ul Normal 0.0-0.7 [facility] Comment on above: Performed By: #### C BC #### [facility] [address] [place] [address] Dr. Jodi Oglesby Eosinophils/100 WBC (Bld) 0.8 % Critically low 0.9-7.0 [facility] Comment on above: Performed By: #### C BC #### [facility] [address] [place] [address] Dr. Jodi Oglesby Erythrocyte distribution width (RBC) [Ratio] 12.5 % Normal 11.0-15.0 [facility] Comment on above: Performed By: #### C BC #### [facility] [address] [place] [address] Dr. Jodi Oglesby Hematocrit (Bld) [Volume fraction] 43.6 % Normal 42.0-54.0 [facility] Comment on above: Performed By: #### C BC #### [facility] [address] [place] [address] Dr. Jodi Oglesby Hemoglobin (Bld) [Mass/Vol] 14.1 g/dL Normal 14.0-18.0 [facility] Comment on above: Performed By: #### C BC #### [facility] [address] [place] [address] Dr. Jodi Oglesby IG # 0.03 10e3/ul Normal 0.00-0.03 [facility] Comment on above: Performed By: #### C BC #### [facility] [address] [place] [address] Dr. Jodi Oglesby IG % 0.3 % Normal 0.0-0.5 [facility] Comment on above: Performed By: #### C BC #### [facility] [address] [place] [address] Dr. Jodi Oglesby LYMPH # 1.5 103/ul Normal 1.2-3.8 [facility] Comment on above: Performed By: #### C BC #### [facility] [address] [place] [address] Dr. Jodi Oglesby Lymphocytes/100 WBC (Bld) 17.2 % Critically low 20.5-60.0 [facility] Comment on above: Performed By: #### C BC #### [facility] [address] [place] [address] Dr. Jodi Oglesby MANUAL DIFF REQ NO Normal [facility] Comment on above: Performed By: #### C BC #### [facility] [address] [place] [address] Dr. Jodi Oglesby MCH (RBC) [Entitic mass] 31.1 pg Normal 25.9-34.0 [facility] Comment on above: Performed By: #### C BC #### [facility] [address] [place] [address] Dr. Jodi Oglesby MCHC (RBC) [Mass/Vol] 32.3 g/dL Normal 29.9-35.2 [facility] Comment on above: Performed By: #### C BC #### [facility] [address] [place] [address] Dr. Jodi Oglesby MCV (RBC) [Entitic vol] 96.0 fL Critically high 80.0-94.0 [facility] Comment on above: Performed By: #### C BC #### [facility] [address] [place] [address] Dr. Jodi Oglesby MONO # 1.0 103/ul Critically high 0.3-0.8 [facility] Comment on above: Performed By: #### C BC #### [facility] [address] [place] [address] Dr. Jodi Oglesby Monocytes/100 WBC (Bld) 10.8 % Normal 1.7-12.0 [facility] Comment on above: Performed By: #### C BC #### [facility] [address] [place] [address] Dr. Jodi Oglesby NEUT # 6.2 103/ul Normal 1.4-6.5 [facility] Comment on above: Performed By: #### C BC #### [facility] [address] [address] [address] Jodi Oglesby Neutrophils/100 WBC (Bld) 70.6 % Normal 43.0-75.0 [facility] Comment on above: Performed By: #### C BC #### [facility] [address] [place] [address] Dr. Jodi Oglesby Platelet mean volume (Bld) [Entitic vol] 9.6 fL Normal 9.5-13.5 [facility] Comment on above: Performed By: #### C BC #### [facility] [address] [place] [address] Dr. Jodi Oglesby PLT 206 103/ul Normal 150-450 [facility] Comment on above: Performed By: #### C BC #### [facility] [address] [place] [address] Dr. Jodi Oglesby RBC 4.54 106/ul Critically low 4.70-6.10 [facility] Comment on above: Performed By: #### C BC #### [facility] [address] [place] [address] Dr. Jodi Oglesby WBC 8.8 103/ul Normal 4.0-11.0 [facility] Comment on above: Performed By: #### C BC #### [facility] [address] [place] [address] Dr. Jodi Oglesby PROF CHEM 8 (BAS METB)on Anion gap [Moles/Vol] 9.5 mmol/L Normal [facility] Comment on above: Performed By: #### B MP #### [facility] [address] [place] [address] Dr. Jodi Oglesby Calcium [Mass/Vol] 9.4 mg/dL Normal 8.5-10.1 [facility] Comment on above: Performed By: #### B MP #### [facility] [address] [place] [address] Dr. Jodi Oglesby Chloride [Moles/Vol] 100 mmol/L Normal 98-107 [facility] Comment on above: Performed By: #### B MP #### [facility] [address] [address] [address] Jodi Oglesby CO2 [Moles/Vol] 33.2 mmol/L Critically high 21.0-32.0 [facility] Comment on above: Performed By: #### B MP #### [facility] [address] [address] [address] Jodi Oglesby Creatinine [Mass/Vol] 0.99 mg/dL Normal 0.70-1.30 [facility] Comment on above: Performed By: #### B MP #### [facility] [address] [address] [address] Jodi Oglesby EGFR-AF LIBERIAN >60 Normal >=60 [facility] Comment on above: Performed By: #### B MP #### [facility] [address] [address] [address] Jodi Oglesby EGFR-NON AF LIBERIAN >60 Normal >=60 [facility] Comment on above: Performed By: #### B MP #### [facility] [address] [address] [address] Jodi Oglesby Glucose [Mass/Vol] 109 mg/dL Critically high 74-106 [facility] Comment on above: Performed By: #### B MP #### [facility] [address] [address] [address] Jodi Oglesby Potassium [Moles/Vol] 4.7 mmol/L Normal 3.5-5.1 [facility] Comment on above: Performed By: #### B MP #### [facility] [address] [address] [address] Jodi Oglesby Sodium [Moles/Vol] 138 mmol/L Normal 136-145 [facility] Comment on above: Performed By: #### B MP #### [facility] [address] [address] [address] Jodi Oglesby Urea nitrogen [Mass/Vol] 17.0 mg/dL Normal 7.0-18.0 [facility] Comment on above: Performed By: #### B MP #### [facility] [address] [address] [address] Jodi Oglesby Urea nitrogen/Creatinine [Mass ratio] 17.2 mg/mg Normal [facility] Comment on above: Performed By: #### B MP #### [facility] [address] [place] [address] Dr. Jodi Oglesby Creatinine (Bld) [Mass/Vol]O rdered By: Tamar Perea on 09-18-2021 Creatinine [Mass/Vol] 0.8 mg/dL 0.6-1.3 [facility] Comment on above: ER/ESD physician is notified/shown all ISTAT results. Critical values may be confirmed by laboratory testing if deemed necessary by ER attending doctor. No Panel InformationOrdered By: Tamar Perea on 09-18-2021 POC Estimated GFR > 60 [facility] Comment on above: GFR estimated refere nce range: According to KDOQI guidelines, <60 ml/min/1.73m2 is sufficient to diagnose a patient with chronic kidney disease. POC Estimated GFR Non- Amer > 60 [facility] CBC AUTO DIFFon 08-12-2021 BASO # 0.0 103/ul Normal 0.0-0.1 [facility] Comment on above: Performed By: #### C BC #### [facility] [address] [place] [address] Dr. Jodi Oglesby Basophils/100 WBC (Bld) 0.3 % Normal 0.2-2.0 [facility] Comment on above: Performed By: #### C BC #### [facility] [address] [address] [address] Jodi Oglesby EO # 0.1 103/ul Normal 0.0-0.7 [facility] Comment on above: Performed By: #### C BC #### [facility] [address] [address] [address] Jodi Oglesby Eosinophils/100 WBC (Bld) 1.8 % Normal 0.9-7.0 [facility] Comment on above: Performed By: #### C BC #### [facility] [address] [address] [address] Jodi Oglesby Erythrocyte distribution width (RBC) [Ratio] 12.6 % Normal 11.0-15.0 [facility] Comment on above: Performed By: #### C BC #### [facility] [address] [place] [address] Dr. Jodi Oglesby Hematocrit (Bld) [Volume fraction] 40.9 % Critically low 42.0-54.0 [facility] Comment on above: Performed By: #### C BC #### [facility] [address] [place] [address] Dr. Jodi Oglesby Hemoglobin (Bld) [Mass/Vol] 13.4 g/dL Critically low 14.0-18.0 [facility] Comment on above: Performed By: #### C BC #### [facility] [address] [place] [address] Dr. Jodi Oglesby IG # 0.03 10e3/ul Normal 0.00-0.03 [facility] Comment on above: Performed By: #### C BC #### [facility] [address] [place] [address] Dr. Jodi Oglesby IG % 0.4 % Normal 0.0-0.5 [facility] Comment on above: Performed By: #### C BC #### [facility] [address] [place] [address] Dr. Jodi Oglesby LYMPH # 1.4 103/ul Normal 1.2-3.8 [facility] Comment on above: Performed By: #### C BC #### [facility] [address] [place] [address] Dr. Jodi Oglesby Lymphocytes/100 WBC (Bld) 18.6 % Critically low 20.5-60.0 [facility] Comment on above: Performed By: #### C BC #### [facility] [address] [place] [address] Dr. Jodi Oglesby MCH (RBC) [Entitic mass] 31.5 pg Normal 25.9-34.0 [facility] Comment on above: Performed By: #### C BC #### [facility] [address] [place] [address] Dr. Jodi Oglesby MCHC (RBC) [Mass/Vol] 32.8 g/dL Normal 29.9-35.2 [facility] Comment on above: Performed By: #### C BC #### [facility] [address] [address] [address] Jodi Oglesby MCV (RBC) [Entitic vol] 96.0 fL Critically high 80.0-94.0 [facility] Comment on above: Performed By: #### C BC #### [facility] [address] [place] [address] Dr. Jodi Oglesby MONO # 0.7 103/ul Normal 0.3-0.8 [facility] Comment on above: Performed By: #### C BC #### [facility] [address] [place] [address] Dr. Jodi Oglesby Monocytes/100 WBC (Bld) 9.7 % Normal 1.7-12.0 [facility] Comment on above: Performed By: #### C BC #### [facility] [address] [place] [address] Dr. Jodi Oglesby NEUT # 5.1 103/ul Normal 1.4-6.5 [facility] Comment on above: Performed By: #### C BC #### [facility] [address] [place] [address] Dr. Jodi Oglesby Neutrophils/100 WBC (Bld) 69.2 % Normal 43.0-75.0 [facility] Comment on above: Performed By: #### C BC #### [facility] [address] [place] [address] Dr. Jodi Oglesby Platelet mean volume (Bld) [Entitic vol] 9.8 fL Normal 9.5-13.5 [facility] Comment on above: Performed By: #### C BC #### [facility] [address] [place] [address] Dr. Jodi Oglesby PLT 195 103/ul Normal 150-450 [facility] Comment on above: Performed By: #### C BC #### [facility] [address] [place] [address] Dr. Jodi Oglesby RBC 4.26 106/ul Critically low 4.70-6.10 [facility] Comment on above: Performed By: #### C BC #### [facility] [address] [place] [address] Dr. Jodi Oglesby WBC 7.4 103/ul Normal 4.0-11.0 [facility] Comment on above: Performed By: #### C BC #### [facility] [address] [place] [address] Dr. Jodi Oglesby ASHLEY - TSHon 08-12-2021 TSH 1.879 uIU/mL Normal 0.358-3.740 [facility] Comment on above: Performed By: #### D LULU DATBMP #### [facility] [address] [place] [address] Dr. Jodi Oglesby TSH RANGE SEE BELOW Normal [facility] Comment on above: Result Comment: <0.3 4 UIU/ml HYPERTHYROID 0.34-5.60 UIU/ml EUTHYROID >5.60 UIU/ml HYPOTHYROID Performed By: #### D LULU DATBMP #### [facility] [address] [place] [address] Dr. Jodi Oglesby ASHLEY- BMP WITH LIPIDon 2021 Anion gap [Moles/Vol] 11.4 mmol/L Normal [facility] Comment on above: Performed By: #### D LULU DATBMP #### [facility] [address] [place] [address] Dr. Jodi Oglesby Calcium [Mass/Vol] 8.7 mg/dL Normal 8.5-10.1 [facility] Comment on above: Performed By: #### D LULU DATBMP #### [facility] [address] [place] [address] Dr. Jodi Oglesby Chloride [Moles/Vol] 105 mmol/L Normal 98-107 [facility] Comment on above: Performed By: #### D LULU DATBMP #### [facility] [address] [place] [address] Dr. Jodi Oglesby Cholesterol [Mass/Vol] 113 mg/dL Normal <=200 [facility] Comment on above: Performed By: #### D ATTSH, DATBMP #### [facility] [address] [place] [address] Dr. Jodi Oglesby Cholesterol in HDL [Mass/Vol] 47 mg/dL Normal 40-60 [facility] Comment on above: Performed By: #### D ATTSH, DATBMP #### [facility] [address] [place] [address] Dr. Jodi Oglesby Cholesterol in LDL [Mass/Vol] 58.0 mg/dL Normal [facility] Comment on above: Performed By: #### D ATTSH, DATBMP #### [facility] [address] [place] [address] Dr. Jodi Oglesby CO2 [Moles/Vol] 29.0 mmol/L Normal 21.0-32.0 [facility] Comment on above: Performed By: #### D ATTSH, DATBMP #### [facility] [address] [place] [address] Dr. Jodi Oglesby Creatinine [Mass/Vol] 0.99 mg/dL Normal 0.70-1.30 [facility] Comment on above: Performed By: #### D ATTKENDELL, DATBMP #### [facility] [address] [place] [address] Dr. Jodi Oglesby EGFR-AF LIBERIAN >60 Normal >=60 [facility] Comment on above: Performed By: #### D ATTSH, DATBMP #### [facility] [address] [place] [address] Dr. Jodi Oglesby EGFR-NON AF LIBERIAN >60 Normal >=60 [facility] Comment on above: Performed By: #### D ATTSH, DATBMP #### [facility] [address] [place] [address] Dr. Jodi Oglesby Glucose [Mass/Vol] 116 mg/dL Critically high 74-106 T [facility] Comment on above: Performed By: #### D ATTSH, DATBMP #### [facility] [address] [place] [address] Dr. Jodi Oglesby HDL NORMAL > or = 60 mg/dl - LO W CARDIOVASCULAR RISK <40 mg/dl - HIGH CARDIOVASCULAR RISK Normal [facility] Comment on above: Performed By: #### D LULU DATBMP #### [facility] [address] [address] [address] Jodi Oglesby LDL CALC NORMAL SEE BELOW Normal [facility] Comment on above: Result Comment: <100 mg/dl OPTIMAL 100 - 129 mg/dl NEAR OR ABOVE OPTIMAL 130 - 159 mg/dl BORDERLINE HIGH 160 - 189 mg/dl HIGH >190 mg/dl VERY HIGH Performed By: #### D ATTKENDELL, DATBMP #### [facility] [address] [address] [address] Jodi Oglesby Potassium [Moles/Vol] 4.4 mmol/L Normal 3.5-5.1 [facility] Comment on above: Performed By: #### D LULU DATBMP #### [facility] [address] [address] [address] Jodi Oglesby Sodium [Moles/Vol] 141 mmol/L Normal 136-145 [facility] Comment on above: Performed By: #### D LULU DATBMP #### [facility] [address] [address] [address] Jodi Oglesby Triglyceride [Mass/Vol] 40 mg/dL Normal <=150 [facility] Comment on above: Performed By: #### D LULU, DATBMP #### [facility] [address] [address] [address] Jodi Oglesby Urea nitrogen [Mass/Vol] 16.0 mg/dL Normal 7.0-18.0 [facility] Comment on above: Performed By: #### D ATTKENDELL DATBMP #### [facility] [address] [place] [address] Dr. Jodi Oglesby Urea nitrogen/Creatinine [Mass ratio] 16.2 mg/mg Normal [facility] Comment on above: Performed By: #### D ATTKENDELL, DATBMP #### [facility] [address] [address] [address] Jodi Oglesby VLDL CALC 8.0 mg/dL Normal [facility] Comment on above: Performed By: #### D ATTSH, DATBMP #### [facility] [address] [address] [address] Jodi Oglesby GLYCOHEMOGLOBIN A1Con 2021 ADA RECOMMENDATION SEE BELOW Normal [facility] Comment on above: Result Comment: ADA RECOMMENDED LIMIT 4.0 - 6.0 ADA THERAPEUTIC TARGET < 7.0 ACTION SUGGESTED > 7.0 Performed By: #### D ATA1C #### [facility] [address] [address] [address] Jodi Oglesby Glucose [Mass/Vol] 131 mg/dL Normal [facility] Comment on above: Performed By: #### D ATA1C #### [facility] [address] [address] [address] Jodi Oglesby HbA1c (Bld) [Mass fraction] 6.2 % Normal 4.5-6.2 [facility] Comment on above: Performed By: #### D ATA1C #### [facility] [address] [address] [address] Jodi Oglesby CNOVon 12-11-2020 CNOV Office Visit (VASSMD ) -- CHICO BAKER ([id number]) 1940 M Date Time Provider Department 12/11/20 10:45 AM POWER CATHERINE During your visit today, we recorded the following information about you: Pulse Blood pressure Weight Height 60/minute 122/78 67.6 kg 1.702 m Power Catherine MD 12/11/2020 11:17 AM Signed [facility] OUTPATIENT VISIT DATE December 11, 2020 OUTPATIENT VISIT TYPE EST PRIMARY CARE PHYSICIAN: Shailesh Dunham (Jere) [facility] [place] [address] REFERRING PHYSICIAN Power Catherine [id number] [facility] [id number] CHIEF COMPLAINT: Patient presents with: Established Patient [...] Power Catherine MD Referring Provider: POWER CATHERINE [[id number]] Allergies As of Date: 12/11/2020 Noted Allergy Reaction SHALINI INHIBITORS 05/09/2015 18 - Unknown GADOLINIUM-CONTAINING CONTRAST ME*05/09/2015 16 - Unknown TETANUS VACCINES AND TOXOID 05/16/2015 16 - Unknown Date Reviewed: 12/11/2020 Reviewed by: Harika Menjivar - Fully Assessed Reason for Visit: Established Patient [175] Follow Up [171] Primary Visit Diagnosis: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 - nitroglycerin sublingual (NITROQUICK) 0.3 mg SL tablet (more content not included)... [facility] -- SAMUELCHICO Melgoza ([id number]) 1940 M Date Time Provider Department 10/30/20 [facility] During your visit today, we recorded the following information about you: Sheri Arora 10/30/2020 4:49 PM Signed Patient called to schedule his annual apt with dr. Catherine. He said he usually gets testing done first. Please place order. thanks Harika Menijvar 10/31/2020 8:18 AM Signed Order in for physician to co-sign Thank you hSeri Arora 11/04/2020 4:04 PM Signed Spoke to [...] [I71.4] Order(s):US ABD AORTA COMPLETE [facility] [[id number]] Order #: [id number] FUTURE Prescriptions as of 11/04/2020 - aspirin, [...] Status:Closed by SHERI MOLINA on 11/04/20 Normal [facility] Vital Signs Date Time Vital Sign Value Performing Clinician Facility 04-14-2023 10:15-0500 Body height 170.18 cm Shailesh Ball Other [facility] Other 04-14-2023 10:15-0500 Body mass index (BMI) [Ratio] 21.64 kg/m2 Shailesh Ball Other [facility] Other 04-14-2023 10:15-0500 Body weight 62.69 kg Shailesh Ball Other [facility] Other 04-14-2023 10:15-0500 Diastolic blood pressure 58 mm[Hg] Shailesh Ball Other [facility] Other 04-14-2023 10:15-0500 Respiratory rate 12 /min Shailesh Ball Other [facility] Other 04-14-2023 10:15-0500 Systolic blood pressure 118 mm[Hg] Shailesh Ball Other [facility] Other 03-29-2023 10:00-0500 Body height 170.18 cm Shailesh Ball Other [facility] Other 03-29-2023 10:00-0500 Body mass index (BMI) [Ratio] 21.8 kg/m2 Shailesh Ball Other [facility] Other 03-29-2023 10:00-0500 Body weight 63.14 kg Shailesh Ball Other [facility] Other 03-29-2023 10:00-0500 Diastolic blood pressure 74 mm[Hg] Shailesh Ball Other [facility] Other 03-29-2023 10:00-0500 Respiratory rate 12 /min Shailesh Ball Other [facility] Other 03-29-2023 10:00-0500 Systolic blood pressure 132 mm[Hg] Shailesh Ball Other [facility] Other 01-13-2023 08:49-0500 Blood Pressure Location Ivelisse Lue [facility] 01-13-2023 08:49-0500 Diastolic blood pressure 74 mm[Hg] Ivelisse Lue [facility] 01-13-2023 08:49-0500 Heart rate 68 /min Ivelisse Lue [facility] 01-13-2023 08:49-0500 Respiratory rate 16 /min Ivelisse Lue [facility] 01-13-2023 08:49-0500 Systolic blood pressure 156 mm[Hg] Ivelisse Lue [facility] 11-10-2022 10:30-0400 Body height 170.18 cm Raul Quan Other [facility] Other 11-10-2022 10:30-0400 Body mass index (BMI) [Ratio] 20.99 kg/m2 Raul Quan Other [facility] Other 11-10-2022 10:30-0400 Body temperature 97.8 [degF] Raul Quan Other [facility] Other 11-10-2022 10:30-0400 Body weight 60.78 kg Raul Quan Other [facility] Other 11-10-2022 10:30-0400 Diastolic blood pressure 64 mm[Hg] Raul Quan Other [facility] Other 11-10-2022 10:30-0400 SaO2% (BldA) [Mass fraction] 98 % Raul Quan Other [facility] Other 11-10-2022 10:30-0400 Systolic blood pressure 110 mm[Hg] Raul Quan Other [facility] Other 10-07-2022 08:49-0400 Blood Pressure Location Ivelisse Lue [facility] 10-07-2022 08:49-0400 Diastolic blood pressure 74 mm[Hg] Ivelisse Lue [facility] 10-07-2022 08:49-0400 Heart rate 75 /min Ivelisse Lue [facility] 10-07-2022 08:49-0400 Systolic blood pressure 139 mm[Hg] Ivelisse Lue [facility] 08-04-2022 11:15-0400 Body height 170.18 cm Raul Quan Other [facility] Other 08-04-2022 11:15-0400 Body mass index (BMI) [Ratio] 21.77 kg/m2 Raul Quan Other [facility] Other 08-04-2022 11:15-0400 Body temperature 97.8 [degF] Raul Quan Other [facility] Other 08-04-2022 11:15-0400 Body weight 63.05 kg Raul Quan Other [place] [facility] Other 08-04-2022 11:15-0400 Diastolic blood pressure 68 mm[Hg] Raul Osorior Other [facility] Other 08-04-2022 11:15-0400 SaO2% (BldA) [Mass fraction] 97 % Raul Quan Other [place] [facility] Other 08-04-2022 11:15-0400 Systolic blood pressure 108 mm[Hg] Raul Quan Other [facility] Other 07-09-2022 08:00-0400 Body temperature 98.6 [degF] DO Shailesh Ball Work Phone: [facility] 07-09-2022 08:00-0400 Diastolic blood pressure 72 mm[Hg] DO Shailesh Ball Work Phone: [facility] 07-09-2022 08:00-0400 Heart rate 69 /min DO Shailesh Ball Work Phone: [facility] 07-09-2022 08:00-0400 Respiratory rate 16 /min DO Shailesh Ball Work Phone: [facility] 07-09-2022 08:00-0400 SaO2% (BldA) [Mass fraction] 97 % DO Shailesh Ball Work Phone: [facility] 07-09-2022 08:00-0400 Systolic blood pressure 154 mm[Hg] DO Shailesh Ball Work Phone: [facility] 07-09-2022 06:00-0400 Body weight 65.8 kg DO Shailesh Ball Work Phone: [facility] 07-08-2022 10:52-0400 Inhaled oxygen flow rate 8 L/min DO Shailesh Ball Work Phone: [facility] 07-08-2022 08:34-0400 Body height 167.64 cm DO Shailesh Ball Work Phone: [facility] 07-08-2022 08:34-0400 Body mass index (BMI) [Ratio] 22.7 kg/m2 DO Shailesh Ball Work Phone: [facility] 06-24-2022 09:27-0400 Blood Pressure Location Ivelisse Lue [facility] 06-24-2022 09:27-0400 Diastolic blood pressure 75 mm[Hg] Ivelisse Lue [facility] 06-24-2022 09:27-0400 Heart rate 66 /min Ivelisse Lue [facility] 06-24-2022 09:27-0400 Respiratory rate 16 /min Ivelisse Lue [facility] 06-24-2022 09:27-0400 Systolic blood pressure 120 mm[Hg] Ivelisse Lue [facility] 05-21-2022 09:30-0400 Body height 170.18 cm Shailesh Ball Other [facility] Other 05-21-2022 09:30-0400 Body mass index (BMI) [Ratio] 21.8 kg/m2 Shailesh Ball Other [facility] Other 05-21-2022 09:30-0400 Body weight 63.14 kg Shailesh Ball Other [facility] Other 05-21-2022 09:30-0400 Diastolic blood pressure 73 mm[Hg] Shailesh Ball Other [facility] Other 05-21-2022 09:30-0400 Respiratory rate 12 /min Shailesh Ball Other [facility] Other 05-21-2022 09:30-0400 Systolic blood pressure 121 mm[Hg] Shailesh Ball Other [facility] Other 05-19-2022 11:00-0400 Body height 170.18 cm Tamar Martinezmoy Other [facility] Other 05-19-2022 11:00-0400 Body mass index (BMI) [Ratio] 22.02 kg/m2 Tamar Brit Other [facility] Other 05-19-2022 11:00-0400 Body temperature 97.5 [degF] Tamarricardo Perea Other [facility] Other 05-19-2022 11:00-0400 Body weight 63.78 kg Tamar Martinezmoy Other [facility] Other 05-19-2022 11:00-0400 Diastolic blood pressure 76 mm[Hg] Tamar Brit Other [facility] Other 05-19-2022 11:00-0400 SaO2% (BldA) [Mass fraction] 98 % Tamar Perea Other [facility] Other 05-19-2022 11:00-0400 Systolic blood pressure 148 mm[Hg] Tamar Perea Other [facility] Other 04-15-2022 08:57-0500 Blood Pressure Location Ivelisse Hassan [facility] 04-15-2022 08:57-0500 Diastolic blood pressure 78 mm[Hg] Vielisse Lue [facility] 04-15-2022 08:57-0500 Heart rate 68 /min Ivelisse Lue [facility] 04-15-2022 08:57-0500 Respiratory rate 16 /min Ivelisse Lue [facility] 04-15-2022 08:57-0500 Systolic blood pressure 122 mm[Hg] Ivelisse Lue [facility] 03-10-2022 11:30-0500 Body height 170.18 cm Raul Quan Other [facility] Other 03-10-2022 11:30-0500 Body mass index (BMI) [Ratio] 21.2 kg/m2 Raul Quan Other [facility] Other 03-10-2022 11:30-0500 Body temperature 97.8 [degF] Raul Quan Other [facility] Other 03-10-2022 11:30-0500 Body weight 61.42 kg Raul Quan Other [facility] Other 03-10-2022 11:30-0500 Diastolic blood pressure 64 mm[Hg] Raul Quan Other [facility] Other 03-10-2022 11:30-0500 SaO2% (BldA) [Mass fraction] 98 % Raul Quan Other [facility] Other 03-10-2022 11:30-0500 Systolic blood pressure 108 mm[Hg] Raul Quan Other [facility] Other 02-25-2022 11:09-0500 Blood Pressure Location IVA ARASH [facility] 02-25-2022 11:09-0500 Diastolic blood pressure 63 mm[Hg] IVA ARASH [facility] 02-25-2022 11:09-0500 Heart rate 64 /min IVA ARASH [facility] 02-25-2022 11:09-0500 Systolic blood pressure 105 mm[Hg] IVA ARASH [facility] 02-18-2022 14:12-0500 Blood Pressure Location IVA ARASH [facility] 02-18-2022 14:12-0500 Diastolic blood pressure 83 mm[Hg] IVA ARASH [facility] 02-18-2022 14:12-0500 Heart rate 70 /min IVA ARASH [facility] 02-18-2022 14:12-0500 Systolic blood pressure 142 mm[Hg] IVA ARASH [facility] 02-11-2022 08:42-0500 Blood Pressure Location Ivelisse Lue [facility] 02-11-2022 08:42-0500 Diastolic blood pressure 73 mm[Hg] Ivelisse Lue [facility] 02-11-2022 08:42-0500 Heart rate 68 /min Ivelisse Lue [facility] 02-11-2022 08:42-0500 Respiratory rate 16 /min Ivelisse Lue [facility] 02-11-2022 08:42-0500 Systolic blood pressure 150 mm[Hg] Ivelisse Lue [facility] 02-05-2022 08:00-0500 Body temperature 99.1 [degF] DO Shailesh Ball Work Phone: [facility] 02-05-2022 08:00-0500 Diastolic blood pressure 76 mm[Hg] DO Shailesh Ball Work Phone: [facility] 02-05-2022 08:00-0500 Heart rate 78 /min DO Shailesh Ball Work Phone: [facility] 02-05-2022 08:00-0500 Respiratory rate 16 /min DO Shailesh Ball Work Phone: [facility] 02-05-2022 08:00-0500 SaO2% (BldA) [Mass fraction] 95 % DO Shailesh Ball Work Phone: [facility] 02-05-2022 08:00-0500 Systolic blood pressure 168 mm[Hg] DO Shailesh Ball Work Phone: [facility] 02-05-2022 03:21-0500 Body weight 64.1 kg DO Shailesh Ball Work Phone: [facility] 02-04-2022 11:43-0500 Inhaled oxygen flow rate 6 L/min DO Shailesh Ball Work Phone: [facility] 02-04-2022 09:31-0500 Body height 167.64 cm DO Shailesh Ball Work Phone: [facility] 02-04-2022 09:31-0500 Body mass index (BMI) [Ratio] 23.3 kg/m2 DO Shailesh Ball Work Phone: [facility] 01-20-2022 12:30-0500 Body height 170.18 cm Raul Buehrer Other [facility] Other 01-20-2022 12:30-0500 Body mass index (BMI) [Ratio] 21.92 kg/m2 Raul Buehrer Other [facility] Other 01-20-2022 12:30-0500 Body temperature 97.7 [degF] Raul Buehrer Other [facility] Other 01-20-2022 12:30-0500 Body weight 63.5 kg Raul Buehrer Other [facility] Other 01-20-2022 12:30-0500 Diastolic blood pressure 64 mm[Hg] Raul Buehrer Other [facility] Other 01-20-2022 12:30-0500 SaO2% (BldA) [Mass fraction] 99 % Raul Buehrer Other [facility] Other 01-20-2022 12:30-0500 Systolic blood pressure 116 mm[Hg] Raul Buehrer Other [facility] Other 01-05-2022 11:15-0400 Body height 170.18 cm Raul Buehrer Other [facility] Other 01-05-2022 11:15-0400 Body mass index (BMI) [Ratio] 21.92 kg/m2 Raul Buehrer Other [facility] Other 01-05-2022 11:15-0400 Body temperature 96 [degF] Raul Doverehrer Other [facility] Other 01-05-2022 11:15-0400 Body weight 63.5 kg Raul Lawrencerer Other [facility] Other 01-05-2022 11:15-0400 Diastolic blood pressure 58 mm[Hg] Raul Doverehrer Other [facility] Other 01-05-2022 11:15-0400 SaO2% (BldA) [Mass fraction] 99 % Raul Lawrencerer Other [facility] Other 01-05-2022 11:15-0400 Systolic blood pressure 100 mm[Hg] Raul Lawrencerer Other [facility] Other 11-24-2021 12:30-0400 Body height 170.18 cm Tamar Brit Other [facility] Other 11-24-2021 12:30-0400 Body mass index (BMI) [Ratio] 21.92 kg/m2 Tamar Perea Other [facility] Other 11-24-2021 12:30-0400 Body temperature 97.5 [degF] Tamar Perea Other [facility] Other 11-24-2021 12:30-0400 Body weight 63.5 kg Tamar Perea Other [facility] Other 11-24-2021 12:30-0400 Diastolic blood pressure 50 mm[Hg] Tamar Perea Other [facility] Other 11-24-2021 12:30-0400 SaO2% (BldA) [Mass fraction] 98 % Tamar Perea Other [facility] Other 11-24-2021 12:30-0400 Systolic blood pressure 96 mm[Hg] Tamar Perea Other [facility] Other 10-21-2021 07:30-0400 50 1 Shailesh E Ball Work Phone: [facility] [place] Work Phone: Comment on above: [id number] 10-15-2021 08:27-0400 Body height 167.64 cm DO Shailesh Ball Work Phone: [facility] 10-15-2021 08:27-0400 Body temperature 97.7 [degF] DO Shailesh Ball Work Phone: [facility] 10-15-2021 08:27-0400 Body weight 66 kg DO Shailesh Ball Work Phone: [facility] 10-15-2021 08:27-0400 Diastolic blood pressure 75 mm[Hg] DO Shailesh Ball Work Phone: [facility] 10-15-2021 08:27-0400 Heart rate 73 /min DO Shailesh Ball Work Phone: [facility] 10-15-2021 08:27-0400 Respiratory rate 16 /min DO Shailesh Ball Work Phone: [facility] 10-15-2021 08:27-0400 SaO2% (BldA) [Mass fraction] 97 % DO Shailesh Ball Work Phone: [facility] 10-15-2021 08:27-0400 Systolic blood pressure 143 mm[Hg] DO Shailesh Dunham Work Phone: [facility] 09-30-2021 13:30-0400 Body height 170.18 cm Tamar Martinezmoy Other [facility] Other 09-30-2021 13:30-0400 Body mass index (BMI) [Ratio] 24.27 kg/m2 Tamar Martinezmoy Other [facility] Other 09-30-2021 13:30-0400 Body temperature 97.4 [degF] Tamar Martinezmoy Other [facility] Other 09-30-2021 13:30-0400 Body weight 70.31 kg Tamar Perea Other [facility] Other 09-30-2021 13:30-0400 Diastolic blood pressure 70 mm[Hg] Tamar Martinezmoy Other [facility] Other 09-30-2021 13:30-0400 SaO2% (BldA) [Mass fraction] 98 % Tamar Martinezmoy Other [facility] Other 09-30-2021 13:30-0400 Systolic blood pressure 140 mm[Hg] Tamar Brit Other [facility] Other 09-15-2021 11:00-0400 Body height 170.18 cm Tamar Martinezmoy Other [facility] Other 09-15-2021 11:00-0400 Body mass index (BMI) [Ratio] 24.27 kg/m2 Tamar Martinezjerardoo Other [facility] Other 09-15-2021 11:00-0400 Body temperature 96.4 [degF] Tamar Perea Other [facility] Other 09-15-2021 11:00-0400 Body weight 70.31 kg Tamar Perea Other [facility] Other 09-15-2021 11:00-0400 Diastolic blood pressure 72 mm[Hg] Tamar Perea Other [facility] Other 09-15-2021 11:00-0400 SaO2% (BldA) [Mass fraction] 98 % Tamar Perea Other [facility] Other 09-15-2021 11:00-0400 Systolic blood pressure 138 mm[Hg] Tamar Perea Other [facility] Other 07-28-2021 10:45-0400 Body height 170.18 cm Raul Quan Other [facility] Other 07-28-2021 10:45-0400 Body mass index (BMI) [Ratio] 24.27 kg/m2 Raul Quan Other [facility] Other 07-28-2021 10:45-0400 Body temperature 96.6 [degF] Raul Quan Other [facility] Other 07-28-2021 10:45-0400 Body weight 70.31 kg Raul Quan Other [facility] Other 07-28-2021 10:45-0400 Diastolic blood pressure 78 mm[Hg] Raul Quan Other [facility] Other 07-28-2021 10:45-0400 SaO2% (BldA) [Mass fraction] 98 % Raul Quan Other [facility] Other 07-28-2021 10:45-0400 Systolic blood pressure 190 mm[Hg] Raul Quan Other [facility] Other Encounters Encounter Date Encounter Type Care Provider Facility Start: 04-14-2023 End: 04-14-2023 ambulatory Shailesh Dunham Other [facility] Other Start: 04-14-2023 Office outpatient vi sit 15 minutes Shailehs Dunham [facility] Start: 04-08-2023 End: 04-08-2023 ambulatory Shailesh Dunham Other [facility] Other Start: 04-08-2023 Telephone encounter Shailesh Dunham NANY [facility] Start: 04-05-2023 End: 04-05-2023 ambulatory Shailesh Dunham Other [facility] Other Start: 04-05-2023 Telephone encounter Shailesh AYON [facility] Start: 04-04-2023 End: 04-04-2023 ambulatory Raul Quan Other [facility] Other Start: 04-04-2023 Telephone encounter Raul Quan [facility] Start: 03-29-2023 End: 03-29-2023 ambulatory Shailesh Dunham Other [facility] Other Start: 03-29-2023 Transitional care ellen sarkar srvc 14 day discharge Shailesh Dunham [facility] Start: 03-25-2023 End: 03-25-2023 ambulatory Raul Quan Other [facility] Other Start: 03-25-2023 Telephone encounter Raul Quan [facility] Start: 03-24-2023 End: 03-25-2023 ambulatory Ivelisse ChiquitaSilvestre Hassan Facility:[id number] Start: 01-13-2023 End: 01-14-2023 ambulatory Ivelisse ChiquitaSilvestre Hymane Facility:[facility] Start: 01-13-2023 End: 01-13-2023 Patient encounter procedure Ivelisse Schreiber Yennicaleb [facility] Start: 11-10-2022 Office outpatient vi sit 25 minutes Raul Quan [facility] Start: 11-10-2022 End: 11-10-2022 ambulatory DO Shailesh Dunham Work Phone: [facility] Other Start: 11-10-2022 End: 11-10-2022 Patient encounter procedure DO Shailesh Dunham Work Phone: [facility] Start: 10-07-2022 End: 10-08-2022 ambulatory Ivelisse ChiquitaSilvestre Hymane Facility:[facility] Start: 10-07-2022 End: 10-07-2022 Patient encounter procedure Ivelisse Hassan [facility] Start: 08-04-2022 End: 08-04-2022 ambulatory Raul Quan Other [facility] Other Start: 08-04-2022 Postop follow up vis it related to original px Raul Quan [facility] Start: 07-28-2022 End: 07-29-2022 ambulatory Ivelisse MSilvestre Hymane Facility:[facility] Start: 07-14-2022 ambulatory Ivelisse MSilvestre Hymane Facility:[facility] [id number] Start: 07-09-2022 End: 07-09-2022 ambulatory Shailesh Dunham Other [facility] Other Start: 07-09-2022 Telephone encounter Shailesh Dunham FP [facility] Start: 07-08-2022 End: 07-08-2022 ambulatory Shailesh Dunham Other [facility] Other Start: 07-08-2022 Telephone encounter Shailesh Dunham FP [facility] Start: 07-08-2022 End: 07-09-2022 Evaluation and management of inpatient Shailesh Ball Facility:[facility] Start: 07-08-2022 End: 07-09-2022 Evaluation and management of inpatient DO Shailesh Dunham Work Phone: [facility] [place] [facility] Work Phone: Start: 07-01-2022 End: 07-01-2022 ambulatory Shailesh Dunham Facility:[facility] Start: 07-01-2022 End: 07-01-2022 ambulatory DO Shailesh Dunham Work Phone: [facility] Work Phone: Start: 07-01-2022 End: 07-01-2022 Patient encounter procedure DO Shailesh Dunham Work Phone: [facility]Pre-Surgical Testing Work Phone: Start: 06-24-2022 End: 06-25-2022 ambulatory Ivelisse Hassan Facility: [facility] Start: 06-24-2022 End: 06-24-2022 Patient encounter procedure Ivelisse Hassan [facility] Start: 05-21-2022 End: 05-21-2022 ambulatory Shailesh Dunham Other [facility] Other Start: 05-21-2022 Patient encounter procedure Shailesh Dunham [facility] Start: 05-19-2022 End: 05-19-2022 ambulatory Tamar Perea Other [facility] Other Start: 05-19-2022 Follow-up encounter Tamar Martinezmoy [facility] Start: 05-13-2022 End: 05-13-2022 ambulatory Raul Quan Other [facility] Other Start: 05-13-2022 Telephone encounter Raul STEPHENSON [facility] Start: 05-11-2022 End: 05-11-2022 ambulatory Shailesh Dunham Facility:[facility] Start: 05-11-2022 End: 05-11-2022 ambulatory DO Shailesh Dunham Work Phone: [facility] Work Phone: Start: 05-11-2022 End: 05-11-2022 Patient encounter procedure DO Shailesh Dunham Work Phone: [facility] [place] Work Phone: Start: 04-23-2022 End: 04-23-2022 ambulatory Raul Melindamary ann Other [facility] Other Start: 04-23-2022 Telephone encounter Raul Quan [facility] Start: 04-15-2022 End: 04-16-2022 ambulatory Ivelisse Hassan [place] Start: 04-15-2022 End: 04-15-2022 Lab Drop off Ivelisse Hassan [facility] Start: 04-15-2022 End: 04-16-2022 ambulatory Ivelisse Hassan Facility:[facility] Start: 04-15-2022 End: 04-15-2022 Patient encounter procedure Ivelisse Hassan [facility] Start: 04-14-2022 End: 04-14-2022 ambulatory Shailesh Dunham Other [facility] Other Start: 04-14-2022 Telephone encounter Shailesh Dunham [facility] Start: 03-10-2022 End: 03-10-2022 ambulatory Raul Quan Other [place] [facility] Other Start: 03-10-2022 Office outpatient vi sit 25 minutes Raul Quan [facility] Start: 02-25-2022 End: 02-25-2022 Patient encounter procedure IVA BUSHRY [facility] Start: 02-18-2022 End: 02-18-2022 Patient encounter procedure IVA BUSHRY [facility] Start: 02-11-2022 End: 02-11-2022 Lab Drop off Ivelisse Hassan [facility] Start: 02-11-2022 End: 02-11-2022 Patient encounter procedure Ivelisse Hassan [facility] Start: 02-10-2022 End: 02-11-2022 ambulatory IVELISSE HASSAN . Facility: Start: 02-07-2022 Encounter for other preprocedural examination DR RAUL QUAN [facility] Start: 02-07-2022 Encounter for preprocedural laboratory examination DR RAUL QUAN [facility] Start: 02-04-2022 End: 02-05-2022 Evaluation and management of inpatient Shailesh Dunham Facility:[facility] Start: 02-04-2022 End: 02-05-2022 Evaluation and management of inpatient DO Shailesh Dunham Work Phone: [facility] Start: 02-02-2022 End: 02-03-[address] RAUL QUAN Facility:[facility] Start: 02-02-2022 End: 02-03-2022 Encounter for other preprocedural examination DR RAUL QUAN Facility:[facility] Start: 01-20-2022 Office outpatient vi sit 25 minutes Raul Quan [facility] Start: 01-20-2022 End: 01-20-2022 ambulatory DO Shailesh Dunham Work Phone: [facility] Start: 01-20-2022 End: 01-20-2022 Patient encounter procedure DO Shailesh Dunham Work Phone: [facility]Ul[facility] Start: 01-05-2022 End: 01-05-2022 ambulatory Raul Quan Other [facility] Start: 01-05-2022 Office outpatient vi sit 25 minutes Raul Quan [facility] Start: 12-08-2021 End: 12-09-[address] SHAILESH DUNHAM Facility:H1 Start: 12-02-2021 End: 12-02-[address] SHAILESH DUNHAM Facility:H1 Start: 11-24-2021 End: 11-24-2021 ambulatory Tamar Perea Other [facility] Start: 11-24-2021 Patient encounter procedure Tamar Perea [facility] Start: 11-11-2021 End: 11-11-[address] SHAILESH DUNHAM Facility:H1 Start: 10-26-2021 End: 10-26-[address] SHAILESH DUNHAM Facility:[facility]1 Start: 10-21-2021 Patient encounter procedure Shailesh Dunham Work Phone: [facility] [place] Work Phone: Start: 10-16-2021 Telephone encounter Judah Vivas MD Work Phone: [facility] 250 DO Work Phone: Start: 10-15-2021 End: 10-15-2021 Evaluation and management of inpatient DO Shailesh Dunham Work Phone: [facility] [place] [facility] Start: 10-13-2021 End: 10-13-2021 Patient encounter procedure DO Shailesh Dunham Work Phone: [facility]Pre-Surgical Testing Start: 10-06-2021 End: 10-06-2021 Patient encounter procedure DO Shailesh Dunham Work Phone: [facility] Start: 09-30-2021 End: 09-30-2021 ambulatory Tamar Perea Other [facility] Start: 09-30-2021 Encounter for other preprocedural examination Tamar Perea [facility] Start: 09-30-2021 Follow-up encounter [facility] Start: 09-22-2021 End: 09-23-[address] SHAILESH DUNHAM Facility:H1 Start: 09-18-2021 End: 09-18-2021 Patient encounter procedure DO Shailesh Dunham Work Phone: [facility] [place] Start: 09-15-2021 End: 09-15-2021 ambulatory Tamar Perea Other [facility] Start: 09-15-2021 Follow-up encounter [facility]ar [facility] Start: 08-27-2021 End: 08-27-2021 Patient encounter procedure DO Shailesh Dunham Work Phone: [facility] Start: 08-12-2021 End: 08-13-2021 ambulatory NONE LISTED REQUEST Facility:H1 Start: 07-28-2021 End: 07-28-2021 ambulatory Raul Quan Other [facility] Start: 07-28-2021 Office outpatient ne w 45 minutes Raul Quan [facility] Start: 06-13-2020 End: 06-13-2020 Patient encounter procedure Lisandra Sher Work Phone: [facility] Work Phone: Patient encounter status Judah Harrington MD Work Phone: [facility] DO Work Phone: Procedures Date Procedure Procedure Detail Performing Clinician Start: 11-10-2022 Doppler ultrasonography of bilateral carotid arteries DO Shailesh Dunham Work Phone: Start: 07-28-2022 Cystourethroscopy with dilation of urethral stricture Ivelisse Hassan Start: 07-08-2022 Antibody screen Shailesh Dunham Comment on above: Result Comment: PERFORMED BY: [facility] [address] [place] [id number] PATHOLOGIST AIRPORT OPERATIONS SPECIALIST ZENA CASTELLON M.D. Start: 07-08-2022 Insertion of [...] on above: Performed By: #### DATA1C #### [facility] [address] [place] [address] Dr. 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 Ivelisse Yennicaleb Start: 02-04-2022 Antibody screen Shailesh Dunham Comment on above: Result Comment: PERFORMED BY: [facility] [address] [place] [id number] PATHOLOGIST AIRPORT OPERATIONS SPECIALIST ZENA CASTELLON M.D. Start: 02-04-2022 Endovascular repair of abdominal aortic aneurysm DO Shailesh Dunham Work Phone: Start: 01-20-2022 Doppler ultrasonography of bilateral carotid arteries DO Shailesh Dunham Work Phone: Start: 09-18-2021 Computed tomography angiography of abdominal and/or pelvic blood vessel DO [facility] Work Phone: Start: 08-27-2021 US scan of aorta DO [facility] Work Phone: Start: 08-27-2021 Doppler ultrasonography of bilateral carotid arteries DO [facility] Work Phone: Start: 06-13-2020 Imm. administration COVID19 [employer] Work Phone: Start: 06-13-2020 SARS-CoV-2 vaccine, 0.5ml [facility] Work Phone: Start: 10-18-2019 Transurethral prostatectomy Ivelisse Lue Start: 04-06-2019 Cystoscope, device (physical object) Ivelisse Lue Start: 10-06-2016 Colonoscopy Ivelisse Lue Comment on above: 2010 Arthroscopy of knee Ivelisse Yenni e Catheterization of left heart Ivelisse Lue Esophagogastroduodenoscopy K athy Lue Plan of Treatment Date Care Activity Detail Author Start: 07-09-2022 [facility] Start: 07-08-2022 Hospital admission [facility] Start: 07-08-2022 Patient referral to dietitian [facility] Start: 02-05-2022 [facility] Start: 02-04-2022 [facility] Start: 02-04-2022 Hospital admission [facility] Start: 10-21-2021 STRESS NUC, Provider: SAL ZUNIGA NUCLEAR ,[id number], Status: Pen, Time: 7:30 AM STRESS NUC, Provider: SAL ZUNIGA NUCLEAR ,[id number], Status: Pen, Time: 7:30 AM [facility] DO Work Phone: Start: 10-15-2021 [facility] Work Phone: Start: 10-15-2021 OR Percutaneous EVAR AAA (Not Applicable) OR Percutaneous EVAR AAA (Not Applicable) [facility] Start: 10-15-2021 End: 10-15-2021 Evaluation and management of inpatient AAA (abdominal aortic aneurysm) [facility] Start: 10-13-2021 End: 10-13-2021 Patient encounter procedure Departed Clinical [facility] Patient Education [facility] Work Phone: Patient referral [facility] Work Phone: Immunizations Immunization Date Immunization Notes Care Provider David holloway 06-13-2020 Rodney and Rodney COVID 19 Vaccine [facility] Comment on above: Note: Patient tolera shyann well. No signs or symptoms of adverse reactions. Patient waited a minimum of 15 minutes. NEGATED: Highlighted row has not occurred!01-13-2023 influenza virus vaccine, unspecified formulation Ivelisse Hassan [facility] Payers Date Payer Category Payer Unknown [id number] 1959 Self-pay [id number] 1959 Unknown [id number] 1959 Unknown [id number] 1959 Unknown [id number] 1942 Unknown [id number] 2.16.84 0.1.808135.3.579.2.593 1942 Unknown [id number] 2.16.84 0.1.642940.3.579.2.593 1942 Unknown [id number] 2.16.84 0.1.397669.3.579.2.593 1942 Unknown [id number] 2.16.84 0.1.392317.3.579.2.593 1942 Unknown [id number] 2.16.84 0.1.755589.3.579.2.593 1942 Unknown [id number] 2.16.84 0.1.558356.3.579.2.593 1942 Unknown [id number] 2.16.84 0.1.002641.3.579.2.593 1942 Unknown [id number] 2.16.8 40.1.425500.3.579.2.727 1942 Unknown [id number] 2.16.8 40.1.932713.3.579.2.727 1942 Unknown [id number] 2.16.8 40.1.067333.3.579.2.727 1942 Unknown [id number] 2.16.8 40.1.917484.3.579.2.727 1942 Unknown [id number] 2.16.8 40.1.760256.3.579.2.727 1942 Unknown [id number] 2.16.8 40.1.805165.3.579.2.727 1942 Unknown [id number] 2.16.8 40.1.986342.3.579.2.727 Self-pay Self Pay [id number] Unknown Unknown [place] [id number] Unknown [id number] 2.16.84 0.1.984130.3.579.2.593 Social History Date Type Detail Facility Tobacco smoking status Unknown i f ever smoked [facility] Work Phone: Start: 03-08-1957 End: 03-08-1996 Sex Assigned At [facility] Start: 10-15-2021 End: 10-07-2022 Tobacco smoking status NHIS Ex-smoker (finding) [facility] Start: 1940 Sex Assigned At Male F [facility] Tobacco smoking status Never [facility] Medical Equipment Procedure Code Equipment Code Equipment Origin al Text Equipment Identifier Dates Transcarotid artery revascularization (TCAR) Bare-metal carotid artery stent ()[id number] FDA Start: 07-08-2022 Transcarotid artery revascularization (TCAR) Bare-metal carotid artery stent ()[id number] FDA Start: 07-08-2022 Percutaneous endovascular repair of abdominal aortic aneurysm (AAA) Abdominal aorta endovascular stent-graft ()[id number] FDA Start: 02-04-2022 Percutaneous endovascular repair of abdominal aortic aneurysm (AAA) Abdominal aorta endovascular stent-graft ()[id number] FDA Start: 02-04-2022 Percutaneous endovascular repair of abdominal aortic aneurysm (AAA) Abdominal aorta endovascular stent-graft ()[id number] FDA Start: 02-04-2022 Goals Date Patient Goal Desired Activity /State Functional Status Date Assessment Result Facility 01-13-2023 Functional Status N/A [facility] 10-07-2022 Functional Status N/A [facility] 07-09-2022 Functional status Patient is Pro gressing Toward Baseline [facility] Work Phone: 06-24-2022 Functional Status N/A [facility] 04-15-2022 Functional Status N/A [facility] 02-25-2022 Functional Status N/A [facility] 02-18-2022 Functional Status N/A [facility] 02-11-2022 Functional Status N/A [facility] 02-05-2022 Functional status Patient at Baseline [facility] Work Phone: 10-15-2021 Functional status Patient at Baseline [facility] Work Phone: Mental Status Date Assessment Result Facility 07-09-2022 Cognitive function Cognitive Sta tus Patient is Progressing Toward Baseline [facility] Work Phone: 02-05-2022 Cognitive function Cognitive Sta tus Patient at Baseline [facility] Work Phone: 10-15-2021 Cognitive function Cognitive Sta tus Patient at Baseline [facility] Work Phone: Clinical Notes 04-18-2020 to 04-14-2023 Note Date & Type Note Facility 04-14-2023 Evaluation note Encounter Date Diagnosis Assessment Notes Apr, ASHD (arteriosclerotic heart disease) (ICD-10 - I25.10) This patient is stable without activity related CP, dyspnea or lightheadedne ss. They are instructed to continue exercise and AHA diet plan. Continue secondary prevention measures. Apr, Primary hypertension (ICD-10 - I10) This patient is instructed to consume a healthy, low-fat, low-salt diet. They are also encouraged to continue exercise to achieve/maint ain a normal BMI. Patient is instructed on home BP measurements: - rest for 5 minutes w/o talking.- positioned w/ feet on floor and arm supported.- average best 2/3 readings w/ goal < 135/85.- update office w/ home readings in 2 weeks. Holding night time Amlodipine and updating office in couple days Apr, Left nephrolithiasis (ICD-10 - N20.0) Planning second ESWL next week. His BP is much better controlled at this time. His BP is optimal at this time and surgery could be scheduled. [facility] 02-01-2024 Evaluation note* Encounter Date Diagnosis Assessment Notes Treatment Notes Treatment Clinical Notes Apr, Primary hypertension (ICD-10 - I10) [facility] 01-29-2024 Evaluation note* Encounter Date Diagnosis Assessment Notes Treatment Notes Treatment Clinical Notes Mar, Primary hypertension (ICD-10 - I10) [facility] 01-28-2024 Evaluation note* Encounter Date Diagnosis Assessment Notes Treatment Notes Treatment Clinical Notes Mar, Primary hypertension (ICD-10 - I10) [facility] 01-22-2024 Evaluation note* Encounter Date Diagnosis [...] has resolved INstructed on increasing fluids [employer] Other [id number] Hospital Discharge instructions Patient Education 01/13/2023 09:52:36 [...] urethra. Follow these instructions at home: Take uzvo-kjj-jqerffg and prescription medicines only as told by [...] provider. Document Revised: 09/10/2021 Document Reviewed: 09/10/2021 [employer] Patient Education 2022 TE2. Follow Up Care 10/07/2022 09:26:45 With:Mo LEIJA, AKILAH Smith, URO Address: When: Unknown [facility] 09-05-2023 Evaluation note* Encounter Date Diagnosis Assessment [...] in the office with a CT scan. [facility] 08-02-2023 Hospital Discharge instructions Patient Education [...] urethra. Follow these instructions at home: Take wleu-qdq-rqywaab and prescription medicines only as told by [...] provider. Document Revised: 09/10/2021 Document Reviewed: 09/10/2021 [employer] Patient Education 2022 TE2. Follow Up Care 07/28/2022 10:29:31 With:Mo LEIJA, AKILAH Smith, URO Address: When:Within 3 Day(s) [facility] 05-30-2023 Evaluation note* Encounter Date Diagnosis [...] a couple of weeks. These have resolved. [facility] 05-04-2023 Discharge summary Author Raul Quan [facility] July 09, 2022 12:08pm Note Date/Time July 09, 2022 8:07am [facility] [address] [place] [address] Discharge Summary Signed Patient: Chico Baker MR#: [id number] : 1940 Acct:[id number] Age/Sex: 82 / M Adm Date: 3 Loc: Room: [address] [place] [address]: Raul Quan MD Copies to: [...] midline, neck is supple, no JVD. 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 He has a little [...] <Electronically signed by MD Raul Quan> 07/09/22 [address] [facility] Work Phone: 1(456) 293-550705-03-2023 History and physical note Author Raul Quan [facility] July 08, 2022 11:06am Note Date/Time July 08, 2022 11:06a m [facility] [address] [place] [address] Vascular Surgery H&P Signed Patient: Chico Baker MR#: [id number] : 1940 Acct:[id number] Age/Sex: 82 / M Adm Date: 3 Loc: Room: [address] [place] [address] Type: ADM IN Attending Dr: Raul Quan [...] signed by MD Raul Quan> 07/08/22 [facility] [facility] Work Phone: 1(969) 106-358204-19-2023 Hospital Discharge instructions Patient Education 06/24/2022 09:42:41 [...] Follow these instructions at home: Medicines Take hzmk-mes-iaasgho and prescription medicines only as told by [...] or the blood stops without treatment. Take vkhv-qkr-gwuetkb and prescription medicines only as told by your health care provider. Drink enough fluid to keep your urine pale yellow. This information is not intended to replace advice given to you by your health care provider. Make sure you discuss any questions you have with your health care provider. Document Revised: 10/23/2020 Document Reviewed: 10/23/2020 [employer] Patient Education 2022 TE2. 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 Walk daily Inspect feet daily for cuts [facility] 03-14-2023 Evaluation note* Encounter Date Diagnosis [...] agree with plan, and denies any questions. [facility] 03-08-2023 Evaluation note* Encounter Date Diagnosis Assessment Notes Treatment Notes Treatment Clinical Notes May, Carotid stenosis, bilateral (ICD-10 - I65.23) CTA: < 50% right, 80% left [facility] 03-08-2023 Evaluation note* Encounter Date Diagnosis Assessment Notes Treatment Notes Treatment Clinical Notes May, Carotid stenosis, bilateral (ICD-10 - I65.23) CTA: < 50% right, 70% left - 05/2022 [facility] 02-08-2023 Hospital Discharge instructions Patient Education [...] prostate. Follow these instructions at home: Take jrvn-lgy-pfglpzt and prescription medicines only as told by [...] 02/19/2001 Document Revised: 05/07/2018 Document Reviewed: 11/12/2016 [employer] Patient Education 2020 TE2. Follow Up Care 02/11/2022 10:55:52 With:Mo LEIJA, AKILAH Smith, URO Address: When: Unknown [facility] 02-07-2023 Evaluation note* Encounter Date Diagnosis Assessment Notes Treatment Notes Treatment Clinical Notes Apr, Primary hypertension (ICD-10 - I10) [facility] 01-03-2023 Evaluation note* Encounter Date Diagnosis [...] to perform simultaneously to minimize contrast exposure. [facility] 12-21-2022 Hospital Discharge instructions Patient Education 02/25/2022 12:02:33 Rash, Adult, Pxhm-hf-Gcpc Rash, Adult A rash is a change [...] with your condition: Medicine Take or apply eugi-nie-hxdxhbk and prescription medicines only as told by [...] the rash from spreading. Take or apply xjxa-sud-ltwhqaz and prescription medicines only as told by [...] 08/10/2008 Document Revised: 06/16/2019 Document Reviewed: 09/26/2018 [employer] Patient Education 2020 TE2. Follow Up Care 02/18/2022 14:33:21 With:Ivelisse Hassan Address:Unknown When: Unknown Comments:Appointment has already been scheduled [facility] 12-14-2022 Hospital Discharge instructions Patient Education [...] including vitamins, herbs, eye drops, creams, and njyb-rxk-amrzcfu medicines. Any problems you or family members [...] provider tells you to take them. Taking jjee-hhg-uyqtfyn medicines, vitamins, herbs, and supplements. Eating and [...] 02/22/2006 Document Revised: 06/14/2019 Document Reviewed: 11/23/2018 [employer] Patient Education 2019 TE2. Follow Up Care 02/17/2022 16:33:06 With:ARASH BUCHANAN, IVA Ellis, URL Address: [address] [place] [address] [phone] When:02/25/2022 [facility] 12-07-2022 Hospital Discharge instructions Patient Education [...] prostate. Follow these instructions at home: Take lmdm-kol-gytotsq and prescription medicines only as told by [...] 02/19/2001 Document Revised: 05/07/2018 Document Reviewed: 11/12/2016 [employer] Patient Education 2020 TE2. Follow Up Care 01/28/2021 10:15:04 With:Mo LEIJA, AKILAH Smith, URO Address: When:6 weeks [facility] 12-01-2022 Discharge summary Author Raul Quan [facility] February 05, 2022 10:08am Note Date/Time February 05, 2022 7 :52am [facility] [address] [place] [address] Discharge Summary Signed Patient: Chico Baker MR#: [id number] : 1940 Acct:[id number] Age/Sex: 81 / M Adm Date: 2 Loc: Room: [address] [place] [address]: Raul Quan MD Copies to: Shailesh Dunham,DO Tamar Perea, TOMMIE Quan MD~ Providers Date of Discharge: [...] % (Auto) 69.5, Lymph % (Auto) 14.4, [place] % (Auto) 14.8, Eos % (Auto) 0.7, Baso % (Auto) 0.6, Nucleat RBC Rel Count 0.1, Neut # (Auto) 7.1, Lymph # (Auto) 1.5, [place] # (Auto) 1.5 H, Eos # (Auto) 0.1, Baso # (Auto) 0.1 02/04/22 08:25: Corrected WBC 9.3, Uncorrected WBC Count 9.3, RBC 4.10, Hgb 12.4L, Hct 37.5 L, MCV 91.5, MCH 30.2, MCHC 33.0, RDW 13.7, Plt Count 198, MPV 8.5, Neut % (Auto) 70.1, Lymph % (Auto) 16.4, [place] % (Auto) 12.0, Eos % (Auto) 0.9, Baso % (Auto) 0.6, Nucleat RBC Rel Count 0.0, Neut # (Auto) 6.5, Lymph # (Auto) 1.5, [place] # (Auto) 1.1 H, Eos # (Auto) [...] Raul Quan> 02/05/22 [facility] [facility] Work Phone: 1(323) 821-487611-15-2022 Evaluation note* Encounter Date Diagnosis Assessment Notes [...] we will evaluate him for left TCAR. [facility] 10-31-2022 Evaluation note* Encounter Date Diagnosis [...] complete and CT confirms candidacy for TCAR [facility] 09-19-2022 Evaluation note* Encounter Date Diagnosis Assessment Notes Treatment Notes Treatment Clinical Notes Nov, AAA (abdominal aortic aneurysm) without rupture (ICD-10 - I71.4) This patient is still recovering from his recent orthopedic procedures. He continues with physical therapy and although he is getting stronger, he remains quite fatigued and weak yet. He has an upcoming appointment with his senior accountant cpa for preoperative risk assessment and stratification this next week. We will give him a few more weeks of physical therapy and have him back in a month or so to reschedule his AAA. He did tell me that he had some abdominal pain while in the snf facility and was taken to the [facility] where a CT of the abdomen was obtained. We will get these studies pushed over for review and comparison. He denies any abdominal pain today and tells me his appetite is pretty good. He knows to call us in the meantime with any issues. [facility] 07-26-2022 Evaluation note* Encounter Date Diagnosis [...] agrees with this plan, denies any questions. [facility] 07-11-2022 Evaluation note* Encounter Date Diagnosis [...] agrees with this plan, and denies questions. [facility] 07-11-2022 Evaluation note* Encounter Date Diagnosis Assessment Notes Treatment Notes Treatment Clinical Notes 11 Sushil, 2022 Peripheral artery disease (ICD-10 - I73.9) This [...] agrees with this plan, and denies questions. [facility] 05-23-2022 Evaluation note* Encounter Date Diagnosis [...] returns we will get baseline ankle-brachial indices. [facility] 10-06-2021 NoteHNO ID: [id number] Author: Power Catherine MD Service: ? Author Type: Physician Type: Progress Notes Filed: 12/11/2020 11:17 AM Note Text: [facility] OUTPATIENT VISIT DATE December 11, 2020 OUTPATIENT VISIT TYPE EST PRIMARY CARE PHYSICIAN: Shailesh Dunham (Jere) [address] [place] [address] REFERRING PHYSICIAN Power Catherine [address] [place] [id number] CHIEF COMPLAINT: Patient presents with: Established Patient [...] up. Continue statin therapy. ? Power Catherine, [facility]02-11-2021 NotePatient Outreach (COVAMN) SAMUELCHICO TANG ([id number]) 1940 M Date Time Provider Department 04/18/20 RONALDSKIMBERLEY During your visit today, we recorded the following information about you: Allergies As of Date: 04/18/2020 Noted Allergy Reaction SHALINI INHIBITORS 05/09/2015 16 - Unknown GADOLINIUM-CONTAINING CONTRAST ME*05/09/2015 16 - Unknown TETANUS VACCINES AND TOXOID 05/16/2015 16 - Unknown Date Reviewed: 10/18/2017 Reviewed by: Power Catherine - Fully Assessed Order(s):SARS-COVID VACCINE 1ST DOSE APPT [[id number]] Order #: [id number] FUTURE Prescriptions as of 04/18/2020 Sig: ASPIRIN 81 MG TABLET,DELAYED * Take 81 mg by mouth once [place]* ISOSORBIDE MONONITRATE ER 30 * Take 30 mg by mouth once [place]* CARVEDILOL 12.5 MG TABLET Take 12.5 mg by mouth twice d* DOXAZOSIN 4 MG TABLET Take 4 mg by mouth daily at b* Problem List As Of Date: 04/18/2020 (None) Encounter Status:Closed by ISIDORO JOHNSON on 04/22/20[facility] Evaluation + Plan note Future Appointments Appointment Date:04/15/2022 08:45:00 AM Scheduled Provider:Ivelisse Hassan MD Location:[facility] Appointment Type:URO Office Visit [facility] evaluation + Plan note Future Appointments Appointment Date:04/15/2022 08:45:00 AM Scheduled Provider:Ivelisse Hassan MD Location:[facility] Appointment Type:URO Office Visit Diagnostic Tests Pending * [facility] Future Appointments Appointment Date:02/25/2022 11:00:00 AM Scheduled Provider:IVA ANTOINE PA-C Location:[facility] Appointment Type:URO Office Visit Appointment Date:04/15/2022 08:45:00 AM Scheduled Provider:Ivelisse Hassan MD Location:[facility] Appointment Type:URO Office Visit [facility] evaluation + Plan note Future Appointments Appointment Date:06/24/2022 09:30:00 AM Scheduled Provider:Ivelisse Hassan MD Location:[facility] Appointment Type:URO Office Visit [facility] evaluation + Plan note Future Appointments Appointment Date:01/13/2023 09:00:00 AM Scheduled Provider:Ivelisse Hassan MD Location:[facility] Appointment Type:URO Office Visit [facility] evaluation note* Diagnosis Onset Date Resolution Status AAA (abdominal aortic aneurysm) acute [facility] Work Phone: Evaluation noteNo assessment information available [facility] Work Phone: Evaluation noteNo InformationNort [employer] Other Evaluation note* Diagnosis Onset Date Resolution Status Left carotid stenosis acute [facility] Work Phone: Histaoj general Narrative - Reported* Type Description Date Medical History hypercholesterolemia Medical History abdominal aortic aneurysm Medical History Carotid stenosis Medical History PAD Surgical History TURP Surgical History knee arthroscopy LEFT Surgical History Vein stripping Hospitalization History See Above [facility] Other Hisqfex general Narrative - Reported* Type Description Date Medical History hypercholesterolemia Medical History abdominal aortic aneurysm Medical History Carotid stenosis Medical History PAD Surgical History TURP Surgical History knee arthroscopy LEFT Surgical History Vein stripping Surgical History RT FEMUR FX WITH [employer] PLACEMENT Hospitalization History See Above [facility] Other Hisyznw general Narrative - Reported* Type Description Date Medical History hypercholesterolemia Medical History abdominal aortic aneurysm Medical History Carotid stenosis Medical History PAD Medical History [ ] Surgical History TURP Surgical History knee arthroscopy LEFT Surgical History Vein stripping Surgical History RT FEMUR FX WITH [employer]LL[employer] PLACEMENT Surgical History EVAR 02/04/2022 Surgical History [ ] Hospitalization History See Above [facility] Other Histlzk general Narrative - Reported* Type Description Date [...] History COLONOSCOPY 2019 Hospitalization History See Above [facility] Other history general Narrative - Reported* Type [...] Left TCAR 07/2022 Hospitalization History See Above [facility] Other Hisxyxt general Narrative - Reported* Type Description Date [...] Left TCAR 07/2022 Hospitalization History See Above [facility] Other Hisiabr general Narrative - Reported* Type Description Date [...] left ESWL 03/2023 Hospitalization History See Above [facility] Other Hospital course Narrative No data available for this section [facility] Discharge instructions No data available for this section [facility] Author Raul Quan [facility] October 15, 2021 4:31pm Note Date/Time October 15, 2021 4: 31pm [facility] [address] [place] [address] Vascular Surgery Progress Note Signed Patient: Chico Baker MR#: [id number] : 1940 Acct:[id number] Age/Sex: 81 / M Adm Date: 2 Loc: Room: [address] [place] [address] Type: DIS IN Attending Dr: Raul Quan [...] proceed with evaluation here. I will contact [facility] to performoutpatient cardiac evaluation and then he will be rescheduled when he is cleared. Code(s): I71.4 - Abdominal aortic aneurysm, without rupture Status: Acute Documented By: Raul Quan MD 10/15/21 162 9 Signed By: <Electronically signed by MD Raul Quan> 10/15/21 1631 [facility] Work Phone: progress note Author Pb Zurita [facility] October 16, 2021 5:41am Note Date/Time October 16, 2021 5: 41am [facility] [address] [place] [address] Anesthesia Progress Note Signed Patient: Chico Baker MR#: [id number] : 1940 Acct:[id number] Age/Sex: 81 / M Adm Date: 2 Loc: 4N Room: [address] [place] [address] Type: DIS IN Attending Dr: Raul Quan MD Copies to: ~ Anesthesia Progress Note Narrative Narrative: Patient for EVAR today for 5+ centimeter infrarenal AAA. Past medical history hypertension, moderate aortic stenosis, and coronary artery disease. Review of medical records and discussion with indicates patient had stress test 2009 positive for infarct and ischemia at which time he was referred to [facility] and had cardiac cath. Medical management was apparently chosen. No interval events,testing, or intervention. Patient has been asymptomatic but sedentary and poor historian. Advised patient and family to see senior accountant cpa for consideration of preop stress testing. Discussed with surgeon Documented By: Pb Zurita MD 10/16/21 0535 Signed By: <Electronically signed by Pb Zurita MD> 10/16/21 0528 [facility] Work Phone: Prolqmfs note No data available for this section [facility] Reason for Referral No Reason for [...] No InformationNo InformationNo InformationNo InformationNo InformationNo InformationNo Information Assessments Findings Encounter Date Encounter for Immunization 1st COVID Vaccine manuel Fry Dirkrik PharmD 06/13/2020 Instructions Instructions not supported for [...] section and content) DATE CREATED AUTHOR 04/02/2021 [facility] DATE CREATED AUTHOR AUTHOR'S ORGANIZ ATION 10/28/2021 [facility] DATE CREATED AUTHOR AUTHOR'S ORGANIZ ATION 04/14/2022 [facility] DATE CREATED AUTHOR AUTHOR'S ORGANIZ ATION 11/11/2022 [facility] DATE CREATED AUTHOR AUTHOR'S ORGANIZ ATION 04/09/2023 [facility] REASON FOR VISIT (unrecogniz ed section and content) REF BY DR DUNHAM FOR AAA, PAD AND CAROTID STENOSIS, Needs a new vascular surgeon7 WK FOLLOW UP; SHYANNE'S, ABDOMINAL, CAROTID [facility]K FOLLOW UP; [facility], ABDOMINAL, CAROTID 08/27/21FOLLOW UP AFTER [facility] 09/18/21-AAAAAA see pt post femur fx rt and clavicle rt6 WK FOLLOW UP, Follow-up abdominal aortic aneurysmVASC 3 MONTH FOLLOW UP; CAROTID DUPLEX 11A, Abdominal aortic aneurysm3 week f/u EVAR, Follow-up after percutaneous aneurysm repairNo InformationNo InformationNo InformationNo InformationNo Information2 MONTH FOLLOW UP; [facility] Follow UpNo InformationNo InformationNo Information3 week f/u left TCAR, Follow-up TCAR3 MONTH FOLLOW UP; CAROTID DUPLEX 10A, Follow-up after left TCARNo InformationTBH follow upNo InformationNo InformationBP readings/concernBP reading1 week Care Teams (unrecognized sec tion and content) [...] BE BASED ON THE PRIMARY CLINICAL RECORDS. [employer] provides no warranty or guarantee of the accuracy or completeness of information in this document.
[2023-04-20 10:58] LABS: Basophils Absolute Auto 0.1 10^3/uL (0.0-0.1); Basophils Percent Auto 0.5 % (0.2-2.0); Eosinophils Absolute Auto 0.1 10^3/uL (0.0-0.7); Eosinophils Percent Auto 1.2 % (0.9-7.0); Hematocrit 36.7 % (42.0-54.0); Hemoglobin 11.5 g/dL (14.0-18.0); Immature Granulocytes Abs Auto 0.03 10^3/uL (0.00-0.03); Immature Granulocytes Pct Auto 0.3 % (0.0-0.5); Lymphocytes Absolute Auto 1.1 10^3/uL (1.2-3.8); Lymphocytes Percent Auto 11.3 % (20.5-60.0); Mean Corpuscular HGB Conc 31.3 g/dL (29.9-35.2); Mean Corpuscular Hemoglobin 29.6 pg (25.9-34.0); Mean Corpuscular Volume 94.6 fL (80.0-94.0); Mean Platelet Volume 9.4 fL (9.5-13.5); Monocytes Absolute Auto 0.8 10^3/uL (0.3-0.8); Monocytes Percent Auto 8.5 % (1.7-12.0); Neutrophils Absolute Auto 7.8 10^3/uL (1.4-6.5); Neutrophils Percent Auto 78.2 % (43.0-75.0); Platelet Count 188 10^3/uL (150-450); Red Blood Count 3.88 10^6/uL (4.70-6.10); Red Cell Distribution Width 12.4 % (11.0-15.0); White Blood Count 9.9 10^3/uL (4.0-11.0)
[2023-04-20 11:27] LABS: INR 1.01; Partial Thromboplastin Time 32.6 sec (22.3-36.2); Prothrombin Time 10.7 sec (9.0-11.6)
[2023-04-20 11:32] LABS: Anion Gap 11.7; BUN Creatinine Ratio 16.9; Carbon Dioxide 28.9 mmol/L (21.0-32.0); Chloride 104 mmol/L (98-107); Estimated GFR (African America >60 (>=60); Estimated GFR (Non-African Ame >60 (>=60); Glucose 133 mg/dL (74-106); Potassium 4.6 mmol/L (3.5-5.1); Sodium 140 mmol/L (136-145)
== END 2023-04-20 09:58 | disposition home or self-care (01) ==
PROVIDERS: PCP Internal Medicine; Visit Provider Urology
DX: Z01.810 Encounter for preprocedural cardiovascular examination (principal); Z01.812 Encounter for preprocedural laboratory examination; N20.0 Calculus of kidney
CPT/HCPCS: 80048; 85025; 85610; 85730; 93005

== ENCOUNTER 2023-04-27 14:08 | Outpatient (OUT) | payer MEDICARE, OTHER, SELFPAY ==
--- NOTE | 2023-04-27 14:13 | XR_ITS ---
The [address] [address] Patient Name: CHICO BAKER MRN: [id number] date: 1940 Sex: M Assigned Patient Location: [facility] Current Patient Location: Accession/Order Number: [id number] Exam Date: 04/27/2023 14:15 Report Date: 04/28/2023 07:11 At the request of: SHERMAN AGUILAR Procedure: XR abdomen 1V EXAMINATION: XR abdomen 1V HISTORY: Left Kidney Stone COMPARISON: XR abdomen 04/07/2023 FINDINGS: KIDNEY/URETER - RIGHT: Several large stones within kidney. KIDNEY/URETER - LEFT: 2 stones within the kidney, largest is 8 mm. PELVIS: Left ureteral stent appearing in good position. Numerous 3-5 mm stones project over distal aspect of left ureter. BOWEL: No abnormal dilation or deviation. BONES: No acute abnormality. OTHER: Prior aortobifemoral endograft stenting. Prior right femur/femoral neck repair. XR/XR abdomen 1V IMPRESSION: 1. Stable left ureteral stent appearing in good position. 2. Bilateral nephrolithiasis. 3. Numerous stones within distal left ureter. Electronically authenticated by: BERNY TIJERINA Date: 04/28/2023 07:11
== END 2023-04-27 14:09 | disposition home or self-care (01) ==
LOC: RAD 14:10
PROVIDERS: PCP Internal Medicine; Visit Provider Urology
DX: N20.0 Calculus of kidney (principal)
CPT/HCPCS: 74018

== ENCOUNTER 2023-04-28 11:23 | Day surgery (SDC) | payer MEDICARE, OTHER, SELFPAY ==
[2023-04-20 10:42] VITALS: BP 134/71; PULSE 69; RESP 14; TEMP 36.2; O2SAT 99; BMI 20.8
[2023-04-28] VITALS (10 sets, daily range): BP systolic 128–160; BP diastolic 59–73; PULSE 57–65; RESP 14–16; TEMP 36.2–36.4; O2SAT 57–100; BMI 21.7
--- OUTSIDE RECORDS SUMMARY | 2023-04-28 11:28 | XMS_ITS | CCD ---
Author Name Unknown Address [address] [place] [address] Organization [facility] Care Team Providers Care Cash Room Clerk Name Role Phone Orlando Dotson Unavailable Raul Quan Unavailable Tamar Perea Unavailable Shailesh Dunham Unavailable DO Shailesh Dunham Primary Care Provider MD Raul Quan Attending Provider KB Perea Attending Provider MD Raul Quan Admit Provider DO Shailesh Dunham Primary Care Provider KB Perea Attending Provider MD Raul Quan Admit Provider [phone] MD Raul Quan Attending Provider [phone] SHAILESH DUNHAM Primary Care Physician [phone] [place] .IVELISSE Admitting Unavailable LUCaleb .IVELISSE Attending [...] CHARLES Consulting Unavailable GORAN, GILES Consulting Unavailable SCHREIBMAN, DEL Consulting Unavailable PELZ, ABY Consulting Unavailable STRAWSER, NICOLE Consulting Unavailable REQUEST, NONE LISTED Admitting Unavaila ble REQUEST, NONE LISTED Attending Unavaila ble ENRICO, DR MEADE Primary Care Unavailable REQUEST, NONE LISTED Consulting Unavaila ble Shailesh Dunham Unavailable DO Shailesh Dunham Primary Care Provider [phone] MD Raul Quan Attending Provider DO Shailesh Dunham Primary Care Provider MD Raul Quan Attending Provider [phone] MD Raul Quan Admit Provider DO Shailesh Dunham Primary Care Provider MD Raul Quan Attending Provider [phone] Shailesh Dunham [facility] Unavailable Tamar Perea Admitting Unavailable Tamar Perea Attending Unavailable Shailesh Dunham Primary Care Unavailable Raul Quan Admitting Unavailable Raul Quan Attending Unavailable Shailesh Dunham Primary Care Unavailable Raul Quan Attending Unavailable Raul Quan Admitting Unavailable Shailesh Dunham Primary Care Unavailable Raul Quan Attending Unavailable Raul Quan Admitting Unavailable Enrico Shailesh Primary Care Unavailable Raul Quan Admitting Unavailable Raul Quan Attending Unavailable En[place], [place] Primary Care Unavailable Raul Quan Attending Unavailable Raul Quan Admitting Unavailable Ivelisse Hassan Attending Unavailable Ivelisse Hassan Attending Unavailable Ivelisse Hassan Attending Unavailable Ivelisse Hassan Attending Unavailable Ivelisse Hassan Attending Unavailable Ivelisse Hassan Attending Unavailable Allergies Allergy Classification Reported Allergen(s) Allergy Type Date of Onset Reaction(s) Facility (5 sources) Angiotensin Converting Enzyme (Shalini) Inhibitors Drug allergy Unknown [facility] Other (6 sources) Tetanus vaccine; Translations: [tetanus toxoid] Drug allergy Unknown [facility] Repository (19 sources) Angiotensin Converting Enzyme (Shalini) Inhibitors; Translations: [Angiotensin-conve rting enzyme inhibitor agent (substance)] Allergy to substance 02-24-20 19 Hives, unknown [facility] (8 sources) Contrast media Allergy to substance 10-07-19 22 [facility] (8 sources) Tetanus immune globulin Drug Allergy 02-24-20 19 Unknown Reaction [facility] (20 sources) Angiotensin-conver ting enzyme inhibitor agent Drug allergy Unknown [facility] Other (2 sources) Tetanus toxoid specific immunoglobulin E Drug allergy Unknown [facility] Other (10 sources) Contrast media; Translations: [Contrast Dye] Allergy to substance unknown [facility] (10 sources) Iodine; Translations: [iodine] Drug Allergy Unknown (qualifier value) [facility] (9 sources) tetanus toxoid vaccine, inactivated; Translations: [tetanus toxoid] Drug Allergy Unknown (qualifier value) [facility] (1 source) Iodine Drug Allergy [facility] Repository (1 source) Iodine (And Iodine Containting Drugs) Drug allergy (disorder) [facility] (1 source) Tetanus AND Diphtheria Tox,Adult Drug allergy (disorder) [facility] Rep[facility] (20 sources) Tetanus vaccine Drug allergy Unknown [facility] Other (3 sources) Iodinated Contrast Media Allergy to substance 07-02-19 23 [facility] Medications Current Medications Medication Drug Class(es) Dates Sig (Normalized) Sig (Original) amLODIPine 2.5 mg oral tablet (5 sources) Dihydropyridine Calcium Channel Helder Start: 04-05-2023 take 1 tablet by mouth every twenty-four hours amLODIPine Besylate 2.5 MG 1 tablet Orally Once a day for 30 days Mar, Active Start: 04-05-2023 take 1 tablet by freddy th every twelve hours amLODIPine Besylate 2.5 MG 1 tablet Orally bid Mar, Active aspirin 81 mg delayed release [...] Start: 02-11-2022 take 2 tablets by mo [facility] three times daily calcium (as calcium [...] Activ e cholecalciferol 0.025 mg oral capsule (18 sources) Vitamin D Start: 07-01-2022 take 1 [...] PO Daily February 23, 2019 1:00am Isosorbide [place] itrate Active isosorbide dinitrate 30 mg oral [...] # 30 tab(s), Refills(s) 6, Pharmacy: [facility]/pharmacy #[id number], 169, cm, 10/07/22 8:54:00 EDT, Height/Length Dosing, 61.5, kg, 10/07/22 8:54:00 EDT, Weight Dosing Start Date: 10/07/22 Status: Ordered oxybutynin chloride 5 mg oral tablet (7 sources) Cholinergic Muscarinic Antagonist take 1 tablet [...] 30 day(s), 60 tab(s), Refill(s) 0, [facility]/pharmacy #[id number], 169, cm, 02/11/22 8:44:00 EST, Height/Length Dosing, 71, kg, 02/11/22 8:44:00 EST, Weight Dosing Start Date: 02/11/22 Stop Date: 03/13/22 Status: Ordered tamsulosin hydrochloride 0.4 mg oral capsule (7 sources) alpha-Adrenergic Helder take 1 capsule by [...] acid 7540 MG / polyethylene glycol 3350 52109 MG / potassium chloride 1200 MG / sodium ascorbate 90222 MG / sodium chloride 3200 MG Powder for Oral Solution) / 1 (polyethylene glycol 3350 958654 MG / potassium chloride 1000 MG / [...] Coronary arteriosclerosis; Translations: [Atherosclerotic heart disease of [place] coronary artery without angina pectoris] Onset: 11-14-2021 03-28-2019 Chronic Deficiency and other anemia (18 sources) Anemia; Translations: [Anemia, unspecified] Episodic Diabetes mellitus without complication (19 sources) Impaired fasting glycemia; Translations: [Impaired fasting glucose] Episodic Disorders of lipid metabolism (20 sources) Hyperlipidemia; Translations: [Pure hypercholesterolemi a, unspecified] Onset: 10-28-2021 03-28-2019 Chronic E Codes: Adverse effects of medical drugs (19 sources) Adverse effect of anticoagulants, initial encounter; [...] prostate, unspecified] Onset: 02-11-2022 Episodic Nutritional deficiencies (18 sources) Vitamin D deficiency; Translations: [Vitamin D deficiency, unspecified] Chronic Occlusion or stenosis of precerebral arteries (20 sources) Carotid artery stenosis; Translations: [Occlusion and stenosis of unspecified carotid artery] Onset: 07-28-2021 Resolved: 09-15-2021 Chronic Other bone disease and musculoskeletal deformities (9 sources) Osteitis deformans 03-28-2019 Chronic Other bone disease and musculoskeletal deformities (18 sources) 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; 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] Chronic Other diseases of bladder and urethra (4 sources) Male urethral stricture; Translations: [Unspecified urethral stricture, male, unspecified site] Onset: 10-06-2022 Episodic Other gastrointestinal disorders (18 sources) Diarrhea; Translations: [Diarrhea, unspecified] Episodic Other lower respiratory disease (18 sources) Dyspnea on exertion; Translations: [Other forms of dyspnea] Episodic Other male genital disorders (13 sources) Male erectile dysfunction, unspecified; Translations: [Erectile dysfunction] Onset: 02-11-2022 Chronic Other nutritional; endocrine; and metabolic disorders (18 sources) Abnormal weight loss; Translations: [Abnormal weight [...] of genitalia 02-18-2022 Episodic Other skin disorders (18 sources) Vesicular eczema of hands and/or feet; [...] 2 Episodic Other aftercare (1 source) Other nursing home (current) drug therapy; Translations: [OTH ORACLE DATABASE CONSULTANT CURRENT DRUG THERAPY] Onset: 2 Episodic Other aftercare (1 source) [employer] customer [employer] (current) use of anticoagulants; Translations: [CORRECTION CURRNT USE ANTICOAGULANTS] Onset: 2 Episodic Other aftercare (1 source) long-term (current) use of aspirin; Translations: [CORRECTION CURRENT [...] Test Name Value Interpretation Reference Range Facility Consultation Noteon 04-23-19 24 Consultation Note [id number]#1.00TIFF Normal [facility] Formson 04-23-2023 Forms [id number]#1.00TIFF Normal [facility] Consent for Procedure/Surger yon 04-21-2023 Consent for Procedure/Surgery [id number]#1.00TIFF Normal [facility] Lab Reportson 04-21-2023 Lab Reports [id number]#1.00TIFF Normal [facility] Lab Reports [id number]#1.00TIFF Normal [facility] Formson 04-20-2023 Forms [id number]#1.00TIFF Normal [facility] RAD - MISCon 04-08-2023 RAD - MISC [id number]#1.00TIFF Normal [facility] Operative Reporton Operative Report [id number]#1.00TIFF Normal [facility] RAD - MISCon 03-25-2023 RAD - MISC [id number]#1.00TIFF Normal [facility] Consent for Procedure/Surger yon 03-22-2023 Consent for Procedure/Surgery [id number]#1.00TIFF Normal [facility] Lab Reportson 03-19-2023 Lab Reports [id number]#1.00TIFF Normal [facility] RAD - MISCon 03-19-2023 RAD - MISC [id number]#1.00TIFF Normal [facility] Reminderson 03-03-2023 Reminders - From: Faviola Clemens To: EU - Recalls Lue; Sent: 01/13/2023 10:01:25 EST Show up: 02/12/2023 10:01:00 EST Subject: LINDSEY and KUB Due Date/Time: 02/12/2023 10:01:00 EST Pt to have LINDSEY and KUB done in March at [facility]. Orders placed. Possible ESWL pending size of stones. No follow up at this time. Pt to be called with results. Called pt and reminded him to complete LINDSEY/KUB @ [facility] in the next month. Orders were [...] KMErasmo Patient is scheduled for 03/24/22 @ [facility] Comment on above: Result Comment: Miss ing Attachment - attachment exceeds size limitation (02/19/2023) RAD - Ultrasound Report Can be viewed in source system Missing Attachment - attachment exceeds size limitation (02/19/2023) RAD - MISC Can be viewed in source system RAD - MISCon 02-22-2023 RAD - MISC [id number]#1.00TIFF [facility] RAD - Ultrasound Reporton RAD - Ultrasound Report [id number]#1.00TIFF [facility] Screenson 01-14-2023 Screens [id number]#1.00TIFF [facility] Screens [id number]#1.00TIFF [facility] Patient Educationon 01-14-20 Patient Education Urology Benign [...] Follow these instructions at home: ? Take buus-inw-dfmivcn and prescription medicines only as told by [...] the medicine (more content not included)... Normal [facility] Urology Office/Clinic Noteon 01-13-2023 Urology Office/Clinic [...] with voice recognition artificial intelligence software, specifically [employer] [place] EXTENDED STAYS and or [employer]IM[employer]. Substitutions may have occurred due to the [...] stones no (more content not included)... Normal [facility] Comment on above: Result Comment: Elec tronically Signed By: Ivelisse Hassan MD\.br\Date and Time Signed: 01/13/23 16:25 EST\.br\Electronically Co-Signed By: Faviola Clemens\.br\Date and Time Co-Signed: 01/13/23 09:59 EST US carotid doppler BIon 09-0 US carotid doppler BI [facility] [place] [address] [place] [address] Ultrasound Report Signed Patient: Chico Baker MR#: [id number] : 1940 Acct:[id number] Age/Sex: 82 / M ADM Date: 11/10/22 Loc: [facility] Room: Type: [facility] Attending Dr: Raul Quan MD Ordering [...] Raul Quan M.D.11/10/2022 10:30 AM Dictation Location: [place] [address] Tech: Harika Pradhan Transcribed By: ALEX 11/10/22 1030 Dictated By: Raul Quan MD 11/10/22 1029 Signed By: 11/10/22 1030 [facility] Screenson 10-08-2022 Screens [id number]#1.00CD:127 [facility] Screens [id number]#1.00CD:127 [facility] Ambulatory Visit Summaryon 0 10-07-2022 Ambulatory Visit Summary CHICO BAKER :1940 Visit Date:10/07/2022 Ambulatory Visit Instructions Your Diagnosis BPH with obstruction/lower urinary tract symptoms History of kidney stones Asymptomatic microscopic hematuria 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 Tests Performed Urnls Dip Stick Auto w/o Microscopy POC 19933 Your Care Team Attending Physician - Mo LEIJA, Ivelisse Schreiber Primary Care Physician - BALL DO, SHAILESH This Is Your Medications List mirabegron (Myrbetriq [...] Schreiber Where: [facility] Patient Educationon 10-08-19 Patient Education Urology Benign [...] Follow these instructions at home: ? Take niep-qcc-vahwpgn and prescription medicines only as told by [...] the medicine (more content not included)... Normal [facility] Urology Office/Clinic Noteon 10-07-2022 Urology Office/Clinic [...] lower urinary tract symptoms) hx TURP by [facility] 2019, prostate small on 05/11/22 [...] neg, s (more content not included)... Normal [facility] Comment on above: Result Comment: Elec tronically Signed By: Mo LEIJA, Ivelisse Schreiber\.br\Date and Time Signed: 10/07/22 10:28 EDT\.br\Electronically Co-Signed By: Eleonora Belcher\.br\Date and Time Co-Signed: 10/07/22 09:25 EDT Consent for Procedure/Surger brandi 07-29-2022 Consent for Procedure/Surgery [id number]#1.00CD:127 Normal [facility] Patient Educationon 07-29-19 Patient Education Urology [...] these instructions at home: Medicines ? Take edwg-asv-faqbjcw and prescription medicines only as told by [...] include cig (more content not included)... Normal [facility] Urology Office/Clinic Noteon 07-28-2022 Urology Office/Clinic [...] urine The Urethra was dilated to: 16-24 Spanish with connor sounds without difficulty Soft 14 [...] (erectile d (more content not included)... Normal [facility] Comment on above: Result Comment: Elec tronically Signed By: Ivelisse Hassan MD\.br\Date and Time Signed: 07/28/22 10:49 EDT\.br\Electronically Co-Signed By: Clarissa Joaquin MA\.br\Date and Time Co-Signed: 07/28/22 10:28 EDT Activated Clotting Timeon Activated Clotting Time POC 335 s High 90-139 [facility] Comment on above: Result Comment: Refe rence Range: 90-139 (Non-heparinized) PERFORMED BY: [place] [address] PATHOLOGIST PRACTICAL NURSING FACULTY ZENA CASTELLON M.D. Performed By: #### C , BMP #### [address] Activated Clotting Time POC 143 s High 90-139 [facility] Comment on above: Result Comment: Refe rence Range: 90-139 (Non-heparinized) PERFORMED BY: [address] [place] [address] PATHOLOGIST PRACTICAL NURSING FACULTY ZENA CASTELLON M.D. Performed By: #### C NISHA ESTRADA #### [facility] [address] [place] [address] Blood activated clotting sue e by coagulation assayOrdered By: Raul Quan on 07-08-2022 ACT Coag (Bld) 335 s 90-139 [facility] Comment on above: Reference Range: 90- 139 (Non-heparinized) Laboratory - CoagulationOrde red By: Raul Quan on 07-08-2022 PT Coag (PPP) [Time] 11.7 s 9.0-12.9 [facility] Platelet poor plasma interna tional normalized ratio (INR) by coagulation assay (relatOrdered By: Raul Quan on 07-08-2022 INR Coag (PPP) [Relative time] 1.0 {INR} [facility] Comment on above: INR Therapeutic [...] Coag (PPP) [Relative time] 1.0 {INR} Normal [facility] Comment on above: Result Comment: [...] heart valves: 3 - 4.5 PERFORMED BY: [place] [address] PATHOLOGIST PRACTICAL NURSING FACULTY ZENA CASTELLON M.D. Performed By: #### C SEAN, NISHA #### [facility] [address] [place], [place] [id number] [facility] PT Coag (PPP) [Time] 11.7 s Normal 9.0-12.9 [facility] Comment on above: Performed By: #### C BC, BMP #### [facility] [address] [place] [id number] [facility] Type and Screenon 07-08-2022 ABO and Rh group Nom (Bld) Blood group A Rh(D) positive Normal [facility] Comment on above: Result Comment: PERF ORMED BY: [facility] [address] [facility] [place] [address] PATHOLOGIST PRACTICAL NURSING FACULTY ZENA CASTELLON M.D. Alanine aminotransferase [En zymatic activity/volume] in Serum or PlasmaOrdered By: Raul Quan on 07-01-2022 ALT [Catalytic activity/Vol] 9 U/L 7-52 [facility] Albumin [Mass/volume] in Ser um or Plasma by Bromocresol green (BCG) dye binding methoOrdered By: Raul Quan on 07-01-2022 Albumin BCG dye [Mass/Vol] 3.7 g/dL 3.5-5.7 [facility] Alkaline phosphatase [Enzyma tic activity/volume] in Serum or PlasmaOrdered By: Raul Quan on 07-01-2022 ALP [Catalytic activity/Vol] 96 U/L 34-104 [facility] Aspartate aminotransferase [ Enzymatic activity/volume] in Serum or PlasmaOrdered By: Raul Quan on 07-01-2022 AST [Catalytic activity/Vol] 14 U/L 13-39 [facility] Basophils Auto (Bld) [#/Vol] Ordered By: Raul Quan on 07-01-2022 Basophils (Bld) [#/Vol] 0.1 10*3/uL 0.0-0.2 [facility] Basophils/100 WBC Auto (Bld) Ordered By: Raul Quan on 07-01-2022 Basophils/100 WBC (Bld) 0.7 % . [facility] Bilirubin.total [Mass/volume ] in Serum or PlasmaOrdered By: Raul Quan on 07-01-2022 Bilirubin [Mass/Vol] 0.5 mg/dL 0.3-1.0 [facility] Calcium [Mass/volume] in Ser um or PlasmaOrdered By: Raul Quan on 07-01-2022 Calcium [Mass/Vol] 8.5 mg/dL 8.6-10.3 [facility] Carbon dioxide, total [Moles /volume] in Serum or PlasmaOrdered By: Raul Quan on 07-01-2022 CO2 [Moles/Vol] 24.6 mmol/L 21.0-31.0 [facility] Chloride [Moles/volume] in S aisha or PlasmaOrdered By: Raul Quan on 07-01-2022 Chloride [Moles/Vol] 100 mmol/L 98-107 [facility] Complete Blood Count Auto Di ffon 07-01-2022 Basophils (Bld) [#/Vol] 0.1 10*3/uL Normal 0.0-0.2 [facility] Comment on above: Result Comment: PERF ORMED BY: [facility] [address] [place] [address] PATHOLOGIST PRACTICAL NURSING FACULTY ZENA CASTELLON M.D. Performed By: #### C BC, CMP #### [facility] [address] Basophils/100 WBC (Bld) 0.7 % Normal . [facility] Comment on above: Performed By: #### C BC, CMP #### [facility] [address] [place] [address] [place] Eosinophils (Bld) [#/Vol] 0.1 10*3/uL Normal 0.0-0.45 [facility] Comment on above: Performed By: #### C BC, CMP #### [facility] [address] [place] [address] [place] Eosinophils/100 WBC (Bld) 1.5 % Normal . [facility] Comment on above: Performed By: #### C BC, CMP #### [facility] [address] Erythrocyte distribution width (RBC) [Ratio] 13.0 % Normal 12.0-14.8 [facility] Comment on above: Performed By: #### C BC, CMP #### [facility] [address] Hematocrit (Bld) [Volume fraction] 36.4 % Low 38.8-50.0 [facility] Comment on above: Performed By: #### C BC, CMP #### [facility] [address] Hemoglobin (Bld) [Mass/Vol] 12.1 g/dL Low 13.0-17.0 [facility] Comment on above: Performed By: #### C BC, CMP #### [facility] [address] Lymphocytes (Bld) [#/Vol] 1.6 10*3/uL Normal 1.00-4.8 [facility] Comment on above: Performed By: #### C BC, CMP #### [address] Lymphocytes/100 WBC (Bld) 19.3 % Normal . [facility] Comment on above: Performed By: #### C BC, CMP #### [facility] [address] MCH (RBC) [Entitic mass] 30.2 pg Normal 27.5-35.2 [facility] Comment on above: Performed By: #### C BC, CMP #### [facility] [address] MCV (RBC) [Entitic vol] 90.7 fL Normal 83.5-101 [facility] Comment on above: Performed By: #### C BC, CMP #### [facility] [address] Mean Corpuscular HGB Conc 33.3 g/dL Normal 32.5-35.6 [facility] Comment on above: Performed By: #### C BC, CMP #### [address] Monocytes (Bld) [#/Vol] 0.9 10*3/uL High 0.0-0.8 [facility] Comment on above: Performed By: #### C BC, CMP #### [facility] [address] [place] [address] [place] Monocytes/100 WBC (Bld) 11.1 % Normal . [facility] Comment on above: Performed By: #### C BC, CMP #### [facility] [address] [place] [address] [place] Neutrophils (Bld) [#/Vol] 5.7 10*3/uL Normal 1.8-7.7 [facility] Comment on above: Performed By: #### C BC, CMP #### [facility] [address] [place] [id number] [facility] Neutrophils/100 WBC (Bld) 67.4 % Normal . [facility] Comment on above: Performed By: #### C BC, CMP #### [facility] [address] NRBC% 0.0 /100{WBC} Normal 0-0.5 [facility] Comment on above: Performed By: #### C BC, CMP #### [facility] [address] Platelet mean volume (Bld) [Entitic vol] 7.6 fL Normal 6.6-10.1 [facility] Comment on above: Performed By: #### C BC, CMP #### [facility] [address] [place] [address] [place] Platelets (Bld) [#/Vol] 198 10*3/uL Normal 150-450 [facility] Comment on above: Performed By: #### C BC, CMP #### [facility] [address] [place] [id number] [place] RBC (Bld) [#/Vol] 4.01 10*6/uL Normal 3.90-5.60 [facility] Comment on above: Performed By: #### C BC, CMP #### [facility] [address] [place] [id number] [place] WBC (Bld) [#/Vol] 8.5 10*3/uL Normal 4.1-10.5 [facility] Comment on above: Performed By: #### C BC, CMP #### [facility] [address] Comprehensive Metabolic Pane santo 07-01-2022 Albumin [Mass/Vol] 3.7 g/dL Normal 3.5-5.7 [facility] Comment on above: Performed By: #### C BC, CMP #### [facility] [address] Albumin/Globulin [Mass ratio] 1.1 {ratio} Normal [facility] Comment on above: Performed By: #### C BC, CMP #### [address] ALP [Catalytic activity/Vol] 96 U/L Normal 34-104 [facility] Comment on above: Result Comment: PERF ORMED BY: [place] [address] PATHOLOGIST PRACTICAL NURSING FACULTY ZENA CASTELLON M.D. Performed By: #### C BC, CMP #### [address] ALT [Catalytic activity/Vol] 9 U/L Normal 7-52 [facility] Comment on above: Performed By: #### C BC, CMP #### [address] Anion gap [Moles/Vol] 13.8 mmol/L Normal 6.0-15.0 [facility] Comment on above: Performed By: #### C BC, CMP #### [address] AST [Catalytic activity/Vol] 14 U/L Normal 13-39 [facility] Comment on above: Performed By: #### C BC, CMP #### [address] Bilirubin [Mass/Vol] 0.5 mg/dL Normal 0.3-1.0 [facility] Comment on above: Performed By: #### C BC, CMP #### [facility] [address] [place] [address] [place] Calcium [Mass/Vol] 8.5 mg/dL Low 8.6-10.3 [facility] Comment on above: Performed By: #### C BC, CMP #### [facility] [address] Chloride [Moles/Vol] 100 mmol/L Normal 98-107 [facility] Comment on above: Performed By: #### C BC, CMP #### [facility] [address] CO2 [Moles/Vol] 24.6 mmol/L Normal 21.0-31.0 [facility] Comment on above: Performed By: #### C SEAN, CMP #### [address] Creatinine [Mass/Vol] 0.87 mg/dL Normal 0.70-1.30 [facility] Comment on above: Performed By: #### C SEAN, CMP #### [address] GFR/1.73 sq M.predicted MDRD (S/P/Bld) [Vol rate/Area] mL/min/{1.73_m2} [facility] Comment on above: Performed By: #### C BC, CMP #### [address] Globulin (S) [Mass/Vol] 3.4 g/dL Normal [facility] Comment on above: Performed By: #### C BC, CMP #### [address] Glucose [Mass/Vol] 163 mg/dL High 70-100 [facility] Comment on above: Result Comment: [place] Glucose Reference Range is dependent on time and content of last meal. Glucose of more than 200 mg/dL in a nonstressed, ambulatory subject supports the diagnosis of Diabetes Mellitus. ADA recommended reference range Performed By: #### C BC, CMP #### [address] Potassium [Moles/Vol] 4.4 mmol/L Normal 3.5-5.1 [facility] Comment on above: Performed By: #### C BC, CMP #### [facility] [address] [place] [address] [place] Protein [Mass/Vol] 7.1 g/dL Normal 6.4-8.9 [facility] Comment on above: Performed By: #### C BC, CMP #### [facility] [address] [place] [address] [place] Sodium [Moles/Vol] 134 mmol/L Low 136-145 [facility] Comment on above: Performed By: #### C BC, CMP #### [facility] [address] Urea nitrogen [Mass/Vol] 17 mg/dL Normal 7-25 [facility] Comment on above: Performed By: #### C BC, CMP #### [facility] [address] Creatinine [Mass/volume] in Serum or PlasmaOrdered By: Raul Quan on 07-01-2022 Creatinine [Mass/Vol] 0.87 mg/dL 0.70-1.30 [facility] ECG 12 lead ECGon 07-01-2022 ECG 12 lead ECG [facility] [place] [address] [place] [address] Electrocardiograph Report Signed Patient: Chico Baker MR#: [id number] 284 : 1940 Acct:[id number] Age/Sex: 82 / M ADM Date: 07/01/22 Loc: Room: Type: [facility] Attending Dr: Raul Quan MD Ordering [...] By Rosanne Shabazz DO 07/03 0637 Normal [facility] Eosinophils Auto (Bld) [#/Vo l]Ordered By: Raul Quan on 07-01-2022 Eosinophils (Bld) [#/Vol] 0.1 10*3/uL 0.0-0.45 [facility] Eosinophils/100 WBC Auto (Bl d)Ordered By: Raul Quan on 07-01-2022 Eosinophils/100 WBC (Bld) 1.5 % . [facility] Erythrocyte distribution wid th Auto (RBC) [Ratio]Ordered By: Raul Quan on 07-01-2022 Erythrocyte distribution width (RBC) [Ratio] 13.0 % 12.0-14.8 [facility] Globulin Calc (S) [Mass/Vol] Ordered By: Raul Quan on 07-01-2022 Globulin (S) [Mass/Vol] 3.4 g/dL [facility] Glucose [Mass/volume] in Ser um or PlasmaOrdered By: Raul Quan on 07-01-2022 Glucose [Mass/Vol] 163 mg/dL 70-100 [facility] Comment on above: ADA recommended refe rence rangeRandom Glucose Reference Range is dependent on time and content of last meal. Glucose of more than 200 mg/dL in a nonstressed, ambulatory subject supports the diagnosis of Diabetes Mellitus. Hematocrit Auto (Bld) [Volum e fraction]Ordered By: Raul Quan on 07-01-2022 Hematocrit (Bld) [Volume fraction] 36.4 % 38.8-50.0 [facility] Hemoglobin [Mass/volume] in BloodOrdered By: Raul Quan on 07-01-2022 Hemoglobin (Bld) [Mass/Vol] 12.1 g/dL 13.0-17.0 [facility] Leukocytes [#/volume] correc shyann for nucleated erythrocytes in Blood by Automated counOrdered By: Raul Quan on 07-01-2022 WBC corrected for nucl RBC Auto (Bld) [#/Vol] 8.5 10*3/uL 4.1-10.5 [facility] Lymphocytes Auto (Bld) [#/Vo l]Ordered By: Raul Quan on 07-01-2022 Lymphocytes (Bld) [#/Vol] 1.6 10*3/uL 1.00-4.8 [facility] Lymphocytes/100 WBC Auto (Bl d)Ordered By: Raul Quan on 07-01-2022 Lymphocytes/100 WBC (Bld) 19.3 % . [facility] MCH Auto (RBC) [Entitic mass ]Ordered By: Raul Quan on 07-01-2022 MCH (RBC) [Entitic mass] 30.2 pg 27.5-35.2 [facility] MCHC Auto (RBC) [Mass/Vol]Or dered By: Raul Quan on 07-01-2022 MCHC (RBC) [Mass/Vol] 33.3 g/dL 32.5-35.6 [facility] MCV Auto (RBC) [Entitic vol] Ordered By: Raul Quan on 07-01-2022 MCV (RBC) [Entitic vol] 90.7 fL 83.5-101 [facility] Monocytes Auto (Bld) [#/Vol] Ordered By: Raul Quan on 07-01-2022 Monocytes (Bld) [#/Vol] 0.9 10*3/uL 0.0-0.8 [facility] Monocytes/100 WBC Auto (Bld) Ordered By: Raul Quan on 07-01-2022 Monocytes/100 WBC (Bld) 11.1 % . [facility] Neutrophils Auto (Bld) [#/Vo l]Ordered By: Raul Qaun on 07-01-2022 Neutrophils (Bld) [#/Vol] 5.7 10*3/uL 1.8-7.7 [facility] Neutrophils/100 WBC Auto (Bl d)Ordered By: Raul Quan on 07-01-2022 Neutrophils/100 WBC (Bld) 67.4 % . [facility] No Panel InformationOrdered By: Raul Quan on 07-01-2022 Estimated GFR (CKD-EPI) > 60.0 mL/Min [facility] Creatinine Clearance (Chem N/A [facility] Nucleated erythrocytes [Pres ence] in Blood by Automated countOrdered By: Raul Quan on 07-01-2022 Nucleated RBC Auto Ql (Bld) 0.0 /100{WBC} 0-0.5 [facility] Platelet mean volume Auto (B ld) [Entitic vol]Ordered By: Raul Quan on 07-01-2022 Platelet mean volume (Bld) [Entitic vol] 7.6 fL 6.6-10.1 [facility] Platelets Auto (Bld) [#/Vol] Ordered By: Raul Quan on 07-01-2022 Platelets (Bld) [#/Vol] 198 10*3/uL 150-450 [facility] Potassium [Moles/volume] in Serum or PlasmaOrdered By: Raul Quan on 07-01-2022 Potassium [Moles/Vol] 4.4 mmol/L 3.5-5.1 [facility] Protein [Mass/volume] in Ser um or PlasmaOrdered By: Raul Quan on 07-01-2022 Protein [Mass/Vol] 7.1 g/dL 6.4-8.9 [facility] RBC Auto (Bld) [#/Vol]Ordere d By: Raul Quan on 07-01-2022 RBC (Bld) [#/Vol] 4.01 10*6/uL 3.90-5.60 [facility] Serum or plasma albumin/glob ulin mass ratioOrdered By: Raul Quan on 07-01-2022 Albumin/Globulin [Mass ratio] 1.1 {ratio} [facility] Serum or plasma anion gap de terminationOrdered By: Raul Quan on 07-01-2022 Anion gap [Moles/Vol] 13.8 mmol/L 6.0-15.0 [facility] Sodium [Moles/volume] in Ser um or PlasmaOrdered By: Raulchrsitiana Quan on 07-01-2022 Sodium [Moles/Vol] 134 mmol/L 136-145 [facility] Urea nitrogen [Mass/volume] in Serum or PlasmaOrdered By: Raul Avelina on 07-01-2022 Urea nitrogen [Mass/Vol] 17 mg/dL 7-25 [facility] WBC Auto (Bld) [#/Vol]Ordere d By: Raul Avelina on 07-01-2022 WBC (Bld) [#/Vol] 8.5 10*3/uL 4.1-10.5 [facility] Patient Educationon 06-25-19 Patient Education Urology [...] these instructions at home: Medicines ? Take lsww-shr-pcjrcjn and prescription medicines only as told by [...] the blood stops without treatment. ? Take vgob-kzp-wrantyh and prescription medicines only as told by your health care provider. ? Drink enough fluid to keep your urine pale yellow. This information is not intended to replace advice given to you by your health care provider. Make sure you discuss any questions you have with your health care provider. Document Revised: 10/23/2020 Document Reviewed: 10/23/2020 new test company Patient Education ? 2022 [employer]. [facility] Screenson 06-24-2022 Screens [id number]:127 Normal [facility] Screens [id number]#[id number]:[address] [facility] Urology Office/Clinic Noteon 06-24-2022 Urology Office/Clinic [...] Urnls Dip Stick Auto w/o Microscopy POC 19431 Urology Procedure Order 4. Penile rash (R21: Rash and other nonspecific skin eruption) Pt states rash has completely cleared up after stopping Bactrim. Denies irritation. Head of penis is not red, but is discolored. Not bothersome. D/c use of cream. Resolved Ordered: Urology Procedure Order 5. ED (erectile dysfunction) (N52.9: Male erectile dysfunction, unspecified) (more content not included)... Normal [facility] Comment on above: Result Comment: Elec tronically Signed By: Mo LEIJA, Ivelisse Schreiber\.br\Date and Time Signed: 06/24/22 10:24 EDT RAD - CT Reporton 05-15-2022 RAD - CT Report [id number]:127 Normal [facility] RAD - CT Reporton 05-14-2022 RAD - CT Report [id number]:127 Normal [facility] RAD - CT Report [id number]#[id number]:127 Normal [facility] CT angio abdomen pelvison CT angio abdomen pelvis [facility] [place] [address] CT Scan Report Signed Patient: Chico Baker MR#: [id number] 284 : 1940 Acct:[id number] Age/Sex: 81 / M ADM Date: 05/11/22 Loc: CT Room: Type: [facility] Attending Dr: Raul Quan MD Copies to: [...] The graft appears to be patent. 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 Impression dictated by: Woody Payan Jr., D.O.05/11/2022 3:58 PM Dictation Location: [place] [address] Transcribed By: [facility] 05/11/22 1558 Dictated By: Woody Payan Jr, 05/11/22 1551 Signed By: 05/11/22 1558 Normal [facility] CT angio neckon 05-11-2022 CT angio neck [facility] [place] [address] CT Scan Report Signed Patient: Chico Baker MR#: [id number] 284 : 1940 Acct:[id number] Age/Sex: 81 / M ADM Date: 05/11/22 Loc: CT Room: Type: [facility] Attending Dr: Raul Quan MD Copies to: Raul Quan MD Ordering Provider: Raul Quan MD Date of Service: 05/11/22 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, 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 (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) CT/CT angio head: I65.23, I71.4 CTA head [...] Raul Solo M.D.05/11/2022 5:04 PM Dictation Location: [place] [address] Transcribed By: [facility] 05/11/22 170 Dictated By: Raul Solo DO 05/11/22 1648 Signed By: 05/11/22 170 [facility] Creatinine (Bld) [Mass/Vol]O rdered By: Raul Quan on 05-11-2022 Creatinine [Mass/Vol] 0.9 mg/dL 0.6-1.3 [facility] Comment on above: ER/ESD physician is notified/shown all ISTAT results.Critical values may be confirmed by laboratory testing ifdeemed necessary by ER attending doctor. ISTAT XRay CREon 05-11-2022 Creatinine [Mass/Vol] 0.9 mg/dL Normal 0.6-1.3 [facility] Comment on above: Result Comment: ER/E SD physician is notified/shown all ISTAT results. Critical values may be confirmed by laboratory testing if deemed necessary by ER attending doctor. Performed By: #### C BC, BMP #### [address] ISTAT GFR ( > 60 [facility] Comment on above: Result Comment: GFR estimated reference range: According to KDOQI guidelines, <60 ml/min/1.73m2 is sufficient to diagnose a patient with chronic kidney disease. PERFORMED BY: [place] [address] PATHOLOGIST [employer] ZENA CASTELLON M.D. Performed By: #### C BC, BMP #### [address] ISTAT GFR (Non- Am > 60 [facility] Comment on above: Performed By: #### C BC, BMP #### [address] No Panel InformationOrdered By: Raul Quan on 05-11-2022 POC Estimated GFR > 60 [facility] Comment on above: GFR estimated refere nce range: According to KDOQI guidelines, <60 ml/min/1.73m2 is sufficient to diagnose a patient with chronic kidney disease. POC Estimated GFR Non- Amer > 60 [facility] URINALYSISOrdered By: Kirstie sanchez on 04-15-2022 Bacteria [...] Interpretation Code Negative [facility] UA Auto SS Reed.plasma/Reed .RBC (Bld) [Mass ratio] 21-30 /HPF Invalid [...] [facility] UA Auto SS Urobilinogen Qn (U) 0.4944920 {Nikki'U}/dL Normal 0.0 - 1.0 EU/dL [facility] UA Auto SS WBC Auto Ql (U) 1+ *ABN* (04/15/22 12:14 PM) Invalid Interpretation Code Negative [facility] UA Auto SS WBC LM.HPF (Urine sed) [#/Area] 0-5 /HPF Normal 0-5/HPF [facility] UA Auto SS URINALYSISOrdered By: Jeremy Porter on 02-11-2022 Bacteria [...] Interpretation Code Negative [facility] UA Auto SS Reed.plasma/Reed .RBC (Bld) [Mass ratio] 4-20 /HPF Normal 0-3/HPF [facility] UA Auto SS Nitrite Ql (U) Negative (02/11/22 10:38 AM) Normal Negative [facility] UA Auto SS pH (U) 5.5 *NA* (02/11/22 10:38 AM) Invalid Interpretation Code 5.0 - 9.0 [facility] UA Auto SS Protein (U) [Mass/Vol] Negative (02/11/22 10:38 AM) Normal Negative [facility] UA Auto SS Specific gravity (U) [Rel density] 1.020 *NA* (02/11/22 10:38 AM) Invalid Interpretation Code 1.005 - 1.030 [facility] UA Auto SS UA Spec Desc Random Urine (02/11/22 10:38 AM) Normal [facility] UA Auto SS Urobilinogen Qn (U) 0.6736510 {Nikki'U}/dL Normal 0.0 - 1.0 EU/dL [facility] UA Auto SS WBC Auto Ql (U) 1+ *ABN* (02/11/22 10:38 AM) Invalid Interpretation Code Negative [facility] UA Auto SS WBC LM.HPF (Urine sed) [#/Area] 0-5 /HPF Normal 0-5/HPF [facility] UA Auto SS Basic Metabolic Panelon 12-0 Anion gap [Moles/Vol] 10.4 mmol/L Normal 6.0-15.0 [facility] Comment on above: Performed By: #### C BC, BMP #### [facility] [address] [place] [address] [place] Calcium [Mass/Vol] 8.4 mg/dL Normal 8.2-10.2 [facility] Comment on above: Performed By: #### C BC, BMP #### [facility] [address] [place] [address] [place] Chloride [Moles/Vol] 101 mmol/L Normal 95-114 [facility] Comment on above: Performed By: #### C BC, BMP #### [facility] [address] [place] [id number] [place] CO2 [Moles/Vol] 28.2 mmol/L Normal 22.0-30.0 [facility] Comment on above: Performed By: #### C BC, BMP #### [facility] [address] [place] [id number] [place] Creatinine [Mass/Vol] 0.94 mg/dL Normal 0.64-1.27 [facility] Comment on above: Performed By: #### C BC, BMP #### [facility] [address] [place] [id number] [place] Creatinine Clr Calc Pharmacy 57.50 [facility] Comment on above: Result Comment: PERF ORMED BY: [place] [address] PATHOLOGIST [employer] ZENA CASTELLON M.D. Performed By: #### C BC, BMP #### [address] Estimated GFR ( Jojo > 60 [facility] Comment on above: Result Comment: GFR estimated reference range: According to KDOQI guidelines, <60 ml/min/1.73m2 is sufficient to diagnose a patient with chronic kidney disease. Performed By: #### C BC, BMP #### [address] Estimated GFR (Non- Am > 60 [facility] Comment on above: Performed By: #### C BC, BMP #### [address] Glucose [Mass/Vol] 109 mg/dL High 70-100 [facility] Comment on above: Result Comment: [place] Glucose Reference Range is dependent on time and content of last meal. Glucose of more than 200 mg/dL in a nonstressed, ambulatory subject supports the diagnosis of Diabetes Mellitus. ADA recommended reference range Performed By: #### C BC, BMP #### [address] Potassium [Moles/Vol] 4.6 mmol/L Normal 3.5-5.1 [facility] Comment on above: Performed By: #### C BC, BMP #### [place] [address] [place] Sodium [Moles/Vol] 135 mmol/L Low 136-146 [facility] Comment on above: Performed By: #### C BC, BMP #### [address] Urea nitrogen [Mass/Vol] 11 mg/dL Normal 9-23 [facility] Comment on above: Performed By: #### C BC, BMP #### [place] [id number] [place] Basophils Auto (Bld) [#/Vol] Ordered By: Raul Quan on 02-05-2022 Basophils (Bld) [#/Vol] 0.1 10*3/uL 0.0-0.2 [facility] Basophils/100 WBC Auto (Bld) Ordered By: Raul Quan on 02-05-2022 Basophils/100 WBC (Bld) 0.6 % . [facility] Complete Blood Count Auto Di ffon 02-05-2022 Basophils (Bld) [#/Vol] 0.1 10*3/uL Normal 0.0-0.2 [facility] Comment on above: Result Comment: PERF ORMED BY: [place] [address] PATHOLOGIST [employer]URSING [employer]AC[employer] ZENA CASTELLON M.D. Performed By: #### C BC, BMP #### [address] Basophils/100 WBC (Bld) 0.6 % Normal . [facility] Comment on above: Performed By: #### C BC, BMP #### [address] Eosinophils (Bld) [#/Vol] 0.1 10*3/uL Normal 0.0-0.45 [facility] Comment on above: Performed By: #### C BC, BMP #### [address] Eosinophils/100 WBC (Bld) 0.7 % Normal . [facility] Comment on above: Performed By: #### C BC, BMP #### [address] Erythrocyte distribution width (RBC) [Ratio] 13.8 % Normal 12.0-14.8 [facility] Comment on above: Performed By: #### C BC, BMP #### [address] Hematocrit (Bld) [Volume fraction] 34.6 % Low 38.8-50.0 [facility] Comment on above: Performed By: #### C BC, BMP #### [facility] [address] [place] [address] [place] Hemoglobin (Bld) [Mass/Vol] 11.4 g/dL Low 13.0-17.0 [facility] Comment on above: Performed By: #### C BC, BMP #### [facility] [address] [place] [address] [place] Lymphocytes (Bld) [#/Vol] 1.5 10*3/uL Normal 1.00-4.8 [facility] Comment on above: Performed By: #### C BC, BMP #### [facility] [address] [place] [address] [place] Lymphocytes/100 WBC (Bld) 14.4 % Normal . [facility] Comment on above: Performed By: #### C BC, BMP #### [facility] [address] MCH (RBC) [Entitic mass] 30.1 pg Normal 27.5-35.2 [facility] Comment on above: Performed By: #### C BC, BMP #### [facility] [address] [place] [address] [place] MCV (RBC) [Entitic vol] 91.6 fL Normal 83.5-101 [facility] Comment on above: Performed By: #### C BC, BMP #### [facility] [address] Mean Corpuscular HGB Conc 32.9 g/dL Normal 32.5-35.6 [facility] Comment on above: Performed By: #### C BC, BMP #### [facility] [address] [place] [address] [place] Monocytes (Bld) [#/Vol] 1.5 10*3/uL High 0.0-0.8 [facility] Comment on above: Performed By: #### C BC, BMP #### [facility] [address] [place] [address] [place] Monocytes/100 WBC (Bld) 14.8 % Normal . [facility] Comment on above: Performed By: #### C BC, BMP #### [facility] [address] [place] [address] [place] Neutrophils (Bld) [#/Vol] 7.1 10*3/uL Normal 1.8-7.7 [facility] Comment on above: Performed By: #### C BC, BMP #### [facility] [address] [place] [address] [place] Neutrophils/100 WBC (Bld) 69.5 % Normal . [facility] Comment on above: Performed By: #### C BC, BMP #### [facility] [address] NRBC% 0.1 /100{WBC} Normal 0-0.5 [facility] Comment on above: Performed By: #### C BC, BMP #### [facility] [address] Platelet mean volume (Bld) [Entitic vol] 7.9 fL Normal 6.6-10.1 [facility] Comment on above: Performed By: #### C BC, BMP #### [facility] [address] [place] [address] [place] Platelets (Bld) [#/Vol] 142 10*3/uL Significant change down 150-450 [facility] Comment on above: Performed By: #### C BC, BMP #### [facility] [address] [place] [address] [place] RBC (Bld) [#/Vol] 3.77 10*6/uL Low 3.90-5.60 [facility] Comment on above: Performed By: #### C BC, BMP #### [facility] [address] [place] [address] [place] WBC (Bld) [#/Vol] 10.3 10*3/uL Normal 4.1-10.5 [facility] Comment on above: Performed By: #### C BC, BMP #### [facility] [address] [place] [address] [place] Creatinine and Glomerular fi ltration rate.predicted panel (S/P/Bld)Ordered By: Raul Quan on 02-05-2022 Creatinine [Mass/Vol] 0.94 mg/dL 0.64-1.27 [facility] Eosinophils Auto (Bld) [#/Vo l]Ordered By: Raul Quan on 02-05-2022 Eosinophils (Bld) [#/Vol] 0.1 10*3/uL 0.0-0.45 [facility] Eosinophils/100 WBC Auto (Bl d)Ordered By: Raul Quan on 02-05-2022 Eosinophils/100 WBC (Bld) 0.7 % . [facility] Erythrocyte distribution wid th Auto (RBC) [Ratio]Ordered By: Raul Quan on 02-05-2022 Erythrocyte distribution width (RBC) [Ratio] 13.8 % 12.0-14.8 [facility] Estimated glomerular filtrat ion rate (GFR) non- AmericanOrdered By: Raul Quan on 02-05-2022 GFR/1.73 sq M.predicted among non-blacks MDRD (S/P/Bld) [Vol rate/Area] > 60 mL/Min [facility] Hematocrit Auto (Bld) [Volum e fraction]Ordered By: Raul Quan on 02-05-2022 Hematocrit (Bld) [Volume fraction] 34.6 % 38.8-50.0 [facility] Hemoglobin [Mass/volume] in BloodOrdered By: Raul Quan on 02-05-2022 Hemoglobin (Bld) [Mass/Vol] 11.4 g/dL 13.0-17.0 [facility] Leukocytes [#/volume] correc shyann for nucleated erythrocytes in Blood by Automated counOrdered By: Raul Quan on 02-05-2022 WBC corrected for nucl RBC Auto (Bld) [#/Vol] 10.3 10*3/uL 4.1-10.5 [facility] Lymphocytes Auto (Bld) [#/Vo l]Ordered By: Raul Quan on 02-05-2022 Lymphocytes (Bld) [#/Vol] 1.5 10*3/uL 1.00-4.8 [facility] Lymphocytes/100 WBC Auto (Bl d)Ordered By: Raul Quan on 02-05-2022 Lymphocytes/100 WBC (Bld) 14.4 % . [facility] MCH Auto (RBC) [Entitic mass ]Ordered By: Raul Quan on 02-05-2022 MCH (RBC) [Entitic mass] 30.1 pg 27.5-35.2 [facility] MCHC Auto (RBC) [Mass/Vol]Or dered By: Raul Quan on 02-05-2022 MCHC (RBC) [Mass/Vol] 32.9 g/dL 32.5-35.6 [facility] MCV Auto (RBC) [Entitic vol] Ordered By: Raul Quan on 02-05-2022 MCV (RBC) [Entitic vol] 91.6 fL 83.5-101 [facility] Monocytes Auto (Bld) [#/Vol] Ordered By: Raul Quan on 02-05-2022 Monocytes (Bld) [#/Vol] 1.5 10*3/uL 0.0-0.8 [facility] Monocytes/100 WBC Auto (Bld) Ordered By: Raul Quan on 02-05-2022 Monocytes/100 WBC (Bld) 14.8 % . [facility] Neutrophils Auto (Bld) [#/Vo l]Ordered By: Raul Quan on 02-05-2022 Neutrophils (Bld) [#/Vol] 7.1 10*3/uL 1.8-7.7 [facility] Neutrophils/100 WBC Auto (Bl d)Ordered By: Raul Quan on 02-05-2022 Neutrophils/100 WBC (Bld) 69.5 % . [facility] No Panel InformationOrdered By: Raul Qaun on 02-05-2022 Estimated GFR () > 60 mL/Min [facility] Comment on above: GFR estimated refere nce range: According to KDOQI guidelines, <60 ml/min/1.73m2 is sufficient to diagnose a patient with chronic kidney disease. Pharmacy Creatinine Clearance (Chem 57.50 [facility] Nucleated erythrocytes [Pres ence] in Blood by Automated countOrdered By: Raul Quan on 02-05-2022 Nucleated RBC Auto Ql (Bld) 0.1 /100{WBC} 0-0.5 [facility] Platelet mean volume Auto (B ld) [Entitic vol]Ordered By: Raul Quan on 02-05-2022 Platelet mean volume (Bld) [Entitic vol] 7.9 fL 6.6-10.1 [facility] Platelets Auto (Bld) [#/Vol] Ordered By: Raul Quan on 02-05-2022 Platelets (Bld) [#/Vol] 142 10*3/uL 150-450 [facility] Comment on above: Delta: 198 on -824 RBC Auto (Bld) [#/Vol]Ordere d By: Raul Quan on 02-05-2022 RBC (Bld) [#/Vol] 3.77 10*6/uL 3.90-5.60 [facility] Serum or plasma anion gap de terminationOrdered By: Raul uQan on 02-05-2022 Anion gap [Moles/Vol] 10.4 mmol/L 6.0-15.0 [facility] Serum or plasma calcium richy urement (mass/volume)Ordered By: Raul Quan on 02-05-2022 Calcium [Mass/Vol] 8.4 mg/dL 8.2-10.2 [facility] Serum or plasma chloride young surement (moles/volume)Ordered By: Raul Quan on 02-05-2022 Chloride [Moles/Vol] 101 mmol/L 95-114 [facility] Serum or plasma glucose richy urement (mass/volume)Ordered By: Raul Quan on 02-05-2022 Glucose [Mass/Vol] 109 mg/dL 70-100 [facility] Comment on above: ADA recommended refe rence rangeRandom Glucose Reference Range is dependent on time and content of last meal. Glucose of more than 200 mg/dL in a nonstressed, ambulatory subject supports the diagnosis of Diabetes Mellitus. Serum or plasma potassium me asurement (moles/volume)Ordered By: Raul Quan on 02-05-2022 Potassium [Moles/Vol] 4.6 mmol/L 3.5-5.1 [facility] Serum or plasma sodium measu rement (moles/volume)Ordered By: Raul Quan on 02-05-2022 Sodium [Moles/Vol] 135 mmol/L 136-146 [facility] Serum or plasma total carbon dioxide measurement (moles/volume)Ordered By: Raul Quan on 02-05-2022 CO2 [Moles/Vol] 28.2 mmol/L 22.0-30.0 [facility] [facility] Serum or plasma urea nitroge n measurement (mass/volume)Ordered By: Raul Quan on 02-05-2022 Urea nitrogen [Mass/Vol] 11 mg/dL 9 [facility] WBC Auto (Bld) [#/Vol]Ordere d By: Raul Quan on 02-05-2022 WBC (Bld) [#/Vol] 10.3 10*3/uL 4.1-10.5 [facility] Antibody Identificationon Antibody Identification COLD Normal [facility] Basic Metabolic Panelon 01-08 Anion gap [Moles/Vol] 13.9 mmol/L Normal 6.0-15.0 [facility] Comment on above: Performed By: #### C BC, BMP #### [facility] [address] [place] [id number] [place] Calcium [Mass/Vol] 9.0 mg/dL Normal 8.2-10.2 [facility] Comment on above: Performed By: #### C BC, BMP #### [facility] [address] [place] [id number] [place] Chloride [Moles/Vol] 101 mmol/L Normal 95-114 [facility] Comment on above: Performed By: #### C BC, BMP #### [facility] [address] [place] [address] [place] CO2 [Moles/Vol] 24.4 mmol/L Normal 22.0-30.0 [facility] Comment on above: Performed By: #### C BC, BMP #### [facility] [address] Creatinine [Mass/Vol] 0.81 mg/dL Normal 0.64-1.27 [facility] Comment on above: Performed By: #### C BC, BMP #### [address] Creatinine Clr Calc Pharmacy 66.73 [facility] Comment on above: Result Comment: PERF ORMED BY: [place] [address] PATHOLOGIST PRACTICAL NURSING FACULTY ZENA CASTELLON M.D. Performed By: #### C BC, BMP #### [address] Estimated GFR ( Jojo > 60 [facility] Comment on above: Result Comment: GFR estimated reference range: According to KDOQI guidelines, <60 ml/min/1.73m2 is sufficient to diagnose a patient with chronic kidney disease. Performed By: #### C BC, BMP #### [address] Estimated GFR (Non- Am > 60 [facility] Comment on above: Performed By: #### C BC, BMP #### [address] Glucose [Mass/Vol] 124 mg/dL High 70-100 [facility] Comment on above: Result Comment: [place] Glucose Reference Range is dependent on time and content of last meal. Glucose of more than 200 mg/dL in a nonstressed, ambulatory subject supports the diagnosis of Diabetes Mellitus. ADA recommended reference range Performed By: #### C BC, BMP #### [address] Potassium [Moles/Vol] 4.3 mmol/L Normal 3.5-5.1 [facility] Comment on above: Performed By: #### C BC, BMP #### [address] Sodium [Moles/Vol] 135 mmol/L Low 136-146 [facility] Comment on above: Performed By: #### C BC, BMP #### [facility] [address] Urea nitrogen [Mass/Vol] 14 mg/dL Normal 9-23 [facility] Comment on above: Performed By: #### C BC, BMP #### [address] Blood Bank Pathologist Manny oneill 02-04-2022 Blood Bank Pathologist Review Sent to Pathology Normal [facility] Comment on above: Result Comment: PERF ORMED BY: [place] [address] PATHOLOGIST PRACTICAL NURSING FACULTY ZENA CASTELLON M.D. Complete Blood Count Auto Di ffon 02-04-2022 Basophils (Bld) [#/Vol] 0.1 10*3/uL Normal 0.0-0.2 [facility] Comment on above: Result Comment: PERF ORMED BY: [place] [address] PATHOLOGIST PRACTICAL NURSING FACULTY ZENA CASTELLON M.D. Performed By: #### C BC #### [place] [address] [place] Basophils/100 WBC (Bld) 0.6 % Normal . [facility] Comment on above: Performed By: #### C BC #### [address] Eosinophils (Bld) [#/Vol] 0.1 10*3/uL Normal 0.0-0.45 [facility] Comment on above: Performed By: #### C BC #### [place] [address] [place] Eosinophils/100 WBC (Bld) 0.9 % Normal . [facility] Comment on above: Performed By: #### C BC #### [address] Erythrocyte distribution width (RBC) [Ratio] 13.7 % Normal 12.0-14.8 [facility] Comment on above: Performed By: #### C BC #### [address] [place] [address] [place] Hematocrit (Bld) [Volume fraction] 37.5 % Low 38.8-50.0 [facility] Comment on above: Performed By: #### C BC #### [address] Hemoglobin (Bld) [Mass/Vol] 12.4 g/dL Low 13.0-17.0 [facility] Comment on above: Performed By: #### C BC #### [address] Lymphocytes (Bld) [#/Vol] 1.5 10*3/uL Normal 1.00-4.8 [facility] Comment on above: Performed By: #### C BC #### [address] Lymphocytes/100 WBC (Bld) 16.4 % Normal . [facility] Comment on above: Performed By: #### C BC #### [address] MCH (RBC) [Entitic mass] 30.2 pg Normal 27.5-35.2 [facility] Comment on above: Performed By: #### C BC #### [address] MCV (RBC) [Entitic vol] 91.5 fL Normal 83.5-101 [facility] Comment on above: Performed By: #### C BC #### [address] Mean Corpuscular HGB Conc 33.0 g/dL Normal 32.5-35.6 [facility] Comment on above: Performed By: #### C BC #### [address] Monocytes (Bld) [#/Vol] 1.1 10*3/uL High 0.0-0.8 [facility] Comment on above: Performed By: #### C BC #### [place] [address] [place] Monocytes/100 WBC (Bld) 12.0 % Normal . [facility] Comment on above: Performed By: #### C BC #### [facility] [address] [place] [address] [place] Neutrophils (Bld) [#/Vol] 6.5 10*3/uL Normal 1.8-7.7 [facility] Comment on above: Performed By: #### C BC #### [facility] [address] [place] [id number] [facility] Neutrophils/100 WBC (Bld) 70.1 % Normal . [facility] Comment on above: Performed By: #### C BC #### [facility] [address] NRBC% 0.0 /100{WBC} Normal 0-0.5 [facility] Comment on above: Performed By: #### C BC #### [facility] [address] Platelet mean volume (Bld) [Entitic vol] 8.5 fL Normal 6.6-10.1 [facility] Comment on above: Performed By: #### C BC #### [facility] [address] [place] [address] [place] Platelets (Bld) [#/Vol] 198 10*3/uL Normal 150-450 [facility] Comment on above: Performed By: #### C BC #### [facility] [address] [place] [address] [place] RBC (Bld) [#/Vol] 4.10 10*6/uL Normal 3.90-5.60 [facility] Comment on above: Performed By: #### C BC #### [facility] [address] [place] [address] [place] WBC (Bld) [#/Vol] 9.3 10*3/uL Normal 4.1-10.5 [facility] Comment on above: Performed By: #### C BC #### [facility] [address] [place] [address] [place] [employer] [place] 02-04-2022 Polyspecific AHG Negative Normal [facility] [place] 02-04-2022 L ------ Specimen: [id number] Received: 02/04/22 Status: JUSTINA Henley Num: [id number] Spec Type: Impression Subm Dr: Rocio Mac DO Tissues: PATHBBK Procedures: PATHREVIEW Age/ Patient Sex Location Account Attending Physician Chico Baker 81/M 4N [id number] Raul Quan MD SPEC NUM: [id number] RECD: 02/04/22 STATUS: JUSTINA HENLEY NUM: [id number] SHYANN: 02/04/22- SUBM DR: Rocio Mac DO ENTERED: 02/04/[address] [facility] [address]: SPEC TYPE: Impression DEPT: SD ORDERED: DEE DEE ORDERED: DEE DEE Blood Bank Results Date Time Test Result Flag (u) Normal Range 02/04/22824 Ab Screen POSITIVE AB ID 02/04/22824 Cold Ab Pathologist Review A cold antibody with no apparent specificity was detectable in the serum at 22C and colder. Due to the low temperature agglutination characteristics, these antibodies are considered clinically insignificant. Specimen: [id number] Received: 02/04/22 Status: JUSTINA Marta Num: [id number] Spec Type: Impression Subm Dr: Rocio Mac DO Tissues: ANTONIO Procedures: PATHREVIEW Patient: Chico Baker [id number] (Continued) Signed (signature on file) Judah Alvarado MD 02/04/22 1458 Normal [facility] Type and Screenon 02-04-2022 ABO and Rh group Nom (Bld) Blood group A Rh(D) positive Normal [facility] Comment on above: Result Comment: PERF ORMED BY: [facility] [address] [place] [address] PATHOLOGIST PRACTICAL NURSING FACULTY ZENA CASTELLON M.D. [facility] 01-07 SARS-CoV-2 (COVID-19) RNA JESSIE+probe Ql (Unsp spec) Not detected Normal NOT DETECTED [facility] Comment on above: Result Comment: This test is not yet approved or cleared by the [place] FDA. When there are no FDA-approved or cleared tests available, and other criteria are met, FDA can make tests available under an emergency access mechanism called an Emergency Use Authorization (EUA). The EUA for this test is supported by the Medical Coding Manager of Health and Human Service's (HHS's) declaration [...] By: #### C VDTB #### [facility] [address] [place], [place] [address] Dr. Jodi Oglesby US carotid doppler BIon 01-06 US carotid doppler BI [facility] [place] [address] [place], [place] [id number] Ultrasound Report Signed Patient: Chico Baker MR#: [id number] : 1940 Acct:[id number] Age/Sex: 81 / M ADM Date: 01/20/22 [facility]: Type: [facility] Attending Dr: Tamar Perea DONKEY RIDE OPERATOR-C Ordering Provider: Tamar Perea APRN Date [...] Raul Quan M.D.01/20/2022 11:32 AM Dictation Location: [place] [address] Tech: Aby Mueller Transcribed By: ALEX 01/20/221131 Dictated By: Raul Quan MD 01/20/221129 Signed By: 01/20/221131 [facility] CBC AUTO DIFFon 12-08-2021 BASO # 0.1 103/ul Normal 0.0-0.1 [facility] Comment on above: Performed By: #### D ATA1C #### [facility] [address] [place] [address] [address] Jodi Oglesby Basophils/100 WBC (Bld) 0.5 % Normal 0.2-2.0 [facility] Comment on above: Performed By: #### D ATA1C #### [facility] [address] [address] [address] Jodi Oglesby EO # 0.1 103/ul Normal 0.0-0.7 [facility] Comment on above: Performed By: #### D ATA1C #### [facility] [address] [address] [address] Jodi Oglesby Eosinophils/100 WBC (Bld) 1.4 % Normal 0.9-7.0 [facility] Comment on above: Performed By: #### D ATA1C #### [facility] [address] [address] [address] Jodi Oglesby Erythrocyte distribution width (RBC) [Ratio] 13.0 % Normal 11.0-15.0 [facility] Comment on above: Performed By: #### D ATA1C #### [facility] [address] [address] [address] Jodi Oglesby Hematocrit (Bld) [Volume fraction] 36.1 % Critically low 42.0-54.0 [facility] Comment on above: Performed By: #### D ATA1C #### [facility] [address] [place] [address] Dr. Jodi Oglesby Hemoglobin (Bld) [Mass/Vol] 11.2 g/dL Critically low 14.0-18.0 [facility] Comment on above: Performed By: #### D ATA1C #### [facility] [address] [place] [address] Dr. Jodi Oglesby IG # 0.04 10e3/ul Critically high 0.00-0.03 [facility] Comment on above: Performed By: #### D ATA1C #### [facility] [address] [place] [address] Dr. Jodi Oglesby IG % 0.4 % Normal 0.0-0.5 [facility] Comment on above: Performed By: #### D ATA1C #### [facility] [address] [place] [address] Dr. Jodi Oglesby LYMPH # 1.8 103/ul Normal 1.2-3.8 [facility] Comment on above: Performed By: #### D ATA1C #### [facility] [address] [place] [address] Dr. Jodi Oglesby Lymphocytes/100 WBC (Bld) 17.2 % Critically low 20.5-60.0 [facility] Comment on above: Performed By: #### D ATA1C #### [facility] [address] [place] [address] Dr. Jodi Oglesby MANUAL DIFF REQ NO Normal [facility] Comment on above: Performed By: #### D ATA1C #### [facility] [address] [place] [address] Dr. Jodi Oglesby MCH (RBC) [Entitic mass] 30.4 pg Normal 25.9-34.0 [facility] Comment on above: Performed By: #### D ATA1C #### [facility] [address] [place] [address] Dr. Jodi Oglesby MCHC (RBC) [Mass/Vol] 31.0 g/dL Normal 29.9-35.2 [facility] Comment on above: Performed By: #### D ATA1C #### [facility] [address] [address] [address] Jodi Oglesby MCV (RBC) [Entitic vol] 98.1 fL Critically high 80.0-94.0 [facility] Comment on above: Performed By: #### D ATA1C #### [facility] [address] [place] [address] Dr. Jodi Oglesby MONO # 1.0 103/ul Critically high 0.3-0.8 [facility] Comment on above: Performed By: #### D ATA1C #### [facility] [address] [place] [address] Dr. Jodi Oglesby Monocytes/100 WBC (Bld) 9.8 % Normal 1.7-12.0 [facility] Comment on above: Performed By: #### D ATA1C #### [facility] [address] [place] [address] Dr. Jodi Oglesby NEUT # 7.3 103/ul Critically high 1.4-6.5 [facility] Comment on above: Performed By: #### D ATA1C #### [facility] [address] [place] [address] Dr. Jodi Oglesby Neutrophils/100 WBC (Bld) 70.7 % Normal 43.0-75.0 [facility] Comment on above: Performed By: #### D ATA1C #### [facility] [address] [place] [address] Dr. Jodi Oglesby Platelet mean volume (Bld) [Entitic vol] 9.1 fL Critically low 9.5-13.5 [facility] Comment on above: Performed By: #### D ATA1C #### [facility] [address] [place] [address] Dr. Jodi Oglesby PLT 214 103/ul Normal 150-450 [facility] Comment on above: Performed By: #### D ATA1C #### [facility] [address] [place] [address] Dr. Jodi Oglesby RBC 3.68 106/ul Critically low 4.70-6.10 [facility] Comment on above: Performed By: #### D ATA1C #### [facility] [address] [place] [address] Dr. Jodi Oglesby WBC 10.3 103/ul Normal 4.0-11.0 [facility] Comment on above: Performed By: #### D ATA1C #### [facility] [address] [place] [address] Dr. Jodi Oglesby PROF CHEM 8 (BAS METB)on Anion gap [Moles/Vol] 9.7 mmol/L Normal [facility] Comment on above: Performed By: #### C BC #### [facility] [address] [place] [address] Dr. Jodi Oglesby Calcium [Mass/Vol] 8.9 mg/dL Normal 8.5-10.1 [facility] Comment on above: Performed By: #### C BC #### [facility] [address] [place] [address] Dr. Jodi Oglesby Chloride [Moles/Vol] 102 mmol/L Normal 98-107 [facility] Comment on above: Performed By: #### C BC #### [facility] [address] [place] [address] Dr. Jodi Oglesby CO2 [Moles/Vol] 31.0 mmol/L Normal 21.0-32.0 [facility] Comment on above: Performed By: #### C BC #### [facility] [address] [place] [address] Dr. Jodi Oglesby Creatinine [Mass/Vol] 0.85 mg/dL Normal 0.70-1.30 [facility] Comment on above: Performed By: #### C BC #### [facility] [address] [place] [address] Dr. Jodi Oglesby EGFR-AF MALTESE >60 Normal >=60 [facility] Comment on above: Performed By: #### C BC #### [facility] [address] [place] [address] Dr. Jodi Oglesby EGFR-NON AF MALTESE >60 Normal >=60 [facility] Comment on above: Performed By: #### C BC #### [facility] [address] [address] [address] Jodi Oglesby Glucose [Mass/Vol] 106 mg/dL Normal 74-106 [facility] Comment on above: Performed By: #### C BC #### [facility] [address] [address] [address] Jodi Oglesby Potassium [Moles/Vol] 4.7 mmol/L Normal 3.5-5.1 [facility] Comment on above: Performed By: #### C BC #### [facility] [address] [address] [address] Jodi Oglesby Sodium [Moles/Vol] 138 mmol/L Normal 136-145 [facility] Comment on above: Performed By: #### C BC #### [facility] [address] [place] [address] Dr. Jodi Oglesby Urea nitrogen [Mass/Vol] 14.0 mg/dL Normal 7.0-18.0 [facility] Comment on above: Performed By: #### C BC #### [facility] [address] [place] [address] Dr. Jodi Oglesby Urea nitrogen/Creatinine [Mass ratio] 16.5 mg/mg Normal [facility] Comment on above: Performed By: #### C BC #### [facility] [address] [place] [address] Dr. Jodi Oglesby XR CHEST 2 Von [...] Date: 2021-12-08 16:20 Normal [facility] Covid-19 PCR (CVDTBH)on 11-07 SARS-CoV-2 (COVID-19) RNA JESSIE+probe Ql (Unsp spec) Not detected Normal NOT DETECTED [facility] Comment on above: Result Comment: This test is not yet approved or cleared by the [place] FDA. When there are no FDA-approved or cleared tests available, and other criteria are met, FDA can make tests available under an emergency access mechanism called an Emergency Use Authorization (EUA). The EUA for this test is supported by the Medical Coding Manager of Health and Human Service's (HHS's) declaration [...] By: #### C VDTB #### [facility] [address] [place] [address] Dr. Jodi Oglesby CBC AUTO DIFFon 11-11-2021 BASO # 0.1 103/ul Normal 0.0-0.1 [facility] Comment on above: Performed By: #### C BC #### [facility] [address] [place] [address] Dr. Jodi Oglesby Basophils/100 WBC (Bld) 0.5 % Normal 0.2-2.0 [facility] Comment on above: Performed By: #### C BC #### [facility] [address] [place] [address] Dr. Jodi Oglesby EO # 0.2 103/ul Normal 0.0-0.7 [facility] Comment on above: Performed By: #### C BC #### [facility] [address] [place] [address] Dr. Jodi Oglesby Eosinophils/100 WBC (Bld) 1.9 % Normal 0.9-7.0 [facility] Comment on above: Performed By: #### C BC #### [facility] [address] [place] [address] Dr. Jodi Ogelsby Erythrocyte distribution width (RBC) [Ratio] 13.6 % Normal 11.0-15.0 [facility] Comment on above: Performed By: #### C BC #### [facility] [address] [place] [address] Dr. Jodi Oglesby Hematocrit (Bld) [Volume fraction] 28.6 % Critically low 42.0-54.0 [facility] Comment on above: Performed By: #### C BC #### [facility] [address] [place] [address] Dr. Jodi Oglesby Hemoglobin (Bld) [Mass/Vol] 9.4 g/dL Critically low 14.0-18.0 [facility] Comment on above: Performed By: #### C BC #### [facility] [address] [place] [address] Dr. Jodi Oglesby IG # 0.08 10e3/ul Critically high 0.00-0.03 [facility] Comment on above: Performed By: #### C BC #### [facility] [address] [place] [address] Dr. Jodi Oglesby IG % 0.8 % Critically high 0.0-0.5 [facility] Comment on above: Performed By: #### C BC #### [facility] [address] [place] [address] Dr. Jodi Oglesby LYMPH # 1.3 103/ul Normal 1.2-3.8 [facility] Comment on above: Performed By: #### C BC #### [facility] [address] [place] [address] Dr. Jodi Oglesby Lymphocytes/100 WBC (Bld) 13.0 % Critically low 20.5-60.0 [facility] Comment on above: Performed By: #### C BC #### [facility] [address] [place] [address] Dr. Jodi Oglesby MANUAL DIFF REQ NO Normal [facility] Comment on above: Performed By: #### C BC #### [facility] [address] [address] [address] Jodi Oglesby MCH (RBC) [Entitic mass] 31.5 pg Normal 25.9-34.0 [facility] Comment on above: Performed By: #### C BC #### [facility] [address] [place] [address] Dr. Jodi Oglesby MCHC (RBC) [Mass/Vol] 32.9 g/dL Normal 29.9-35.2 [facility] Comment on above: Performed By: #### C BC #### [facility] [address] [place] [address] Dr. Jodi Oglesby MCV (RBC) [Entitic vol] 96.0 fL Critically high 80.0-94.0 [facility] Comment on above: Performed By: #### C BC #### [facility] [address] [place] [address] Dr. Jodi Oglesby MONO # 1.1 103/ul Critically high 0.3-0.8 [facility] Comment on above: Performed By: #### C BC #### [facility] [address] [place] [address] Dr. Jodi Oglesby Monocytes/100 WBC (Bld) 10.7 % Normal 1.7-12.0 [facility] Comment on above: Performed By: #### C BC #### [facility] [address] [place] [address] Dr. Jodi Oglesby NEUT # 7.4 103/ul Critically high 1.4-6.5 [facility] Comment on above: Performed By: #### C BC #### [facility] [address] [place] [address] Dr. Jodi Oglesby Neutrophils/100 WBC (Bld) 73.1 % Normal 43.0-75.0 [facility] Comment on above: Performed By: #### C BC #### [facility] [address] [place] [address] Dr. Jodi Oglesby Platelet mean volume (Bld) [Entitic vol] 9.3 fL Critically low 9.5-13.5 [facility] Comment on above: Performed By: #### C BC #### [facility] [address] [place], [place] [address] Dr. Jodi Oglesby PLT 288 103/ul Normal 150-450 [facility] Comment on above: Performed By: #### C BC #### [facility] [address] [place], [place] [address] Dr. Jodi Oglesby RBC 2.98 106/ul Critically low 4.70-6.10 [facility] Comment on above: Performed By: #### C BC #### [facility] [address] [place], [place] [address] Dr. Jodi Oglesby WBC 10.1 103/ul Normal 4.0-11.0 [facility] Comment on above: Performed By: #### C BC #### [facility] [address] [place] [id number] Jodi [address]les[address] ABD/PELVIS WO CONon [...] Date: 2021-11-11 03:10 Normal [facility] Covid-19 PCR (CVDTB)on SARS-CoV-2 (COVID-19) RNA JESSIE+probe Ql (Unsp spec) Not detected Normal NOT DETECTED [facility] Comment on above: Result Comment: When diagnostic [...] this test is supported by the Medical Coding Manager of Health and Human Service's declaration that [...] By: #### C BC #### [facility] [address] [place] [address] Dr. Jodi Oglesby OCC BLD IMMUNO SCREENon OCCULT BLOOD Negative Normal NEGATIVE [facility] Comment on above: Performed By: #### D ATA1C #### [facility] [address] [place] [address] Dr. Jodi Oglesby PROF 14(COMP METB)on 022 Albumin [Mass/Vol] 3.0 g/dL Critically low 3.4-5.0 [facility] Comment on above: Performed By: #### C MP #### [facility] [address] [place] [address] Dr. Jodi Oglesby Albumin/Globulin [Mass ratio] 0.8 {ratio} Normal [facility] Comment on above: Performed By: #### C MP #### [facility] [address] [place] [address] Dr. Jodi Oglesby ALP [Catalytic activity/Vol] 126 U/L Critically high 46-116 [facility] Comment on above: Performed By: #### C MP #### [facility] [address] [place] [address] Dr. Jodi Oglesby ALT [Catalytic activity/Vol] 22 U/L Normal 16-63 [facility] Comment on above: Performed By: #### C MP #### [facility] [address] [place] [address] Dr. Jodi Oglesby Anion gap [Moles/Vol] 16.7 mmol/L Normal [facility] Comment on above: Performed By: #### C MP #### [facility] [address] [place] [address] [address] Jodi Oglesby AST [Catalytic activity/Vol] 23 U/L Normal 15-37 [facility] Comment on above: Performed By: #### C MP #### [facility] [address] [place] [address] Dr. Jodi Oglesby Bilirubin [Mass/Vol] 0.6 mg/dL Normal 0.2-1.0 [facility] Comment on above: Performed By: #### C MP #### [facility] [address] [place] [address] Dr. Jodi Oglesby Calcium [Mass/Vol] 8.5 mg/dL Normal 8.5-10.1 [facility] Comment on above: Performed By: #### C MP #### [facility] [address] [place] [address] Dr. Jodi Oglesby Chloride [Moles/Vol] 99 mmol/L Normal 98-107 [facility] Comment on above: Performed By: #### C MP #### [facility] [address] [place] [address] Dr. Jodi Oglesby CO2 [Moles/Vol] 27.4 mmol/L Normal 21.0-32.0 [facility] Comment on above: Performed By: #### C MP #### [facility] [address] [place] [address] Dr. Jodi Oglesby Creatinine [Mass/Vol] 0.80 mg/dL Normal 0.70-1.30 [facility] Comment on above: Performed By: #### C MP #### [facility] [address] [place] [address] Dr. Jodi Oglesby EGFR-AF MALTESE >60 Normal >=60 [facility] Comment on above: Performed By: #### C MP #### [facility] [address] [place] [address] Dr. Jodi Oglesby EGFR-NON AF MALTESE >60 Normal >=60 [facility] Comment on above: Performed By: #### C MP #### [facility] [address] [place] [address] Dr. Jodi Oglesby Globulin (S) [Mass/Vol] 3.9 g/dL Normal [facility] Comment on above: Performed By: #### C MP #### [facility] [address] [address] [address] Jodi Oglesby Glucose [Mass/Vol] 116 mg/dL Critically high 74-106 T [facility] Comment on above: Performed By: #### C MP #### [facility] [address] [address] [address] Jodi Oglesby Potassium [Moles/Vol] 4.1 mmol/L Normal 3.5-5.1 [facility] Comment on above: Performed By: #### C MP #### [facility] [address] [address] [address] Jodi Oglesby Protein [Mass/Vol] 6.9 g/dL Normal 6.4-8.2 [facility] Comment on above: Performed By: #### C MP #### [facility] [address] [address] [address] Jodi Oglesby Sodium [Moles/Vol] 129 mmol/L Critically low 136-145 Th [facility] Comment on above: Performed By: #### C MP #### [facility] [address] [address] [address] Jodi Oglesby Urea nitrogen [Mass/Vol] 15.0 mg/dL Normal 7.0-18.0 [facility] Comment on above: Performed By: #### C MP #### [facility] [address] [address] [address] Jodi Oglesby Urea nitrogen/Creatinine [Mass ratio] 18.8 mg/mg Normal [facility] Comment on above: Performed By: #### C MP #### [facility] [address] [address] [address] Jodi Oglesby PROTIMEon 11-11-2021 INR Coag (PPP) [Relative time] 1.01 {INR} Normal [facility] Comment on above: Performed By: #### P TT, PT #### [facility] [address] [address] [address] Jodi Oglesby INR GUIDELINES SEE BELOW Normal [facility] Comment on above: Result Comment: ESHA RED INR: 2.0 - 3.0 CONDITIONS NOT LISTED BELOW 2.5 - 3.5 FOR PROSTHETIC HEART VALVE REPLACEMENT 2.5 - 3.5 RECURRENT THROMBOSIS Performed By: #### P TT, PT #### [facility] [address] [place] [address] Dr. Jodi Oglesby PT Coag (PPP) [Time] 10.9 s Normal 9.0-11.6 [facility] Comment on above: Performed By: #### P TT, PT #### [facility] [address] [place] [address] Dr. Jodi Oglesby PTTon 11-11-2021 aPTT Coag (Bld) [Time] 25.4 s Normal 22.3-36.2 [facility] Comment on above: Performed By: #### P TT, PT #### [facility] [address] [place] [address] Dr. Jodi Oglesby CBC AUTO DIFFon 10-26-2021 BASO # 0.0 103/ul Normal 0.0-0.1 [facility] Comment on above: Performed By: #### D ATA1C #### [facility] [address] [place] [address] Dr. Jodi Oglesby Basophils/100 WBC (Bld) 0.3 % Normal 0.2-2.0 [facility] Comment on above: Performed By: #### D ATA1C #### [facility] [address] [place] [address] Dr. Jodi Oglesby EO # 0.1 103/ul Normal 0.0-0.7 [facility] Comment on above: Performed By: #### D ATA1C #### [facility] [address] [place] [address] Dr. Jodi Oglesby Eosinophils/100 WBC (Bld) 0.5 % Critically low 0.9-7.0 [facility] Comment on above: Performed By: #### D ATA1C #### [facility] [address] [place] [address] Dr. Jodi Oglesby Erythrocyte distribution width (RBC) [Ratio] 12.4 % Normal 11.0-15.0 [facility] Comment on above: Performed By: #### D ATA1C #### [facility] [address] [place] [address] Dr. Jodi Oglesby Hematocrit (Bld) [Volume fraction] 39.5 % Critically low 42.0-54.0 [facility] Comment on above: Performed By: #### D ATA1C #### [facility] [address] [place] [address] Dr. Jodi Oglesby Hemoglobin (Bld) [Mass/Vol] 12.8 g/dL Critically low 14.0-18.0 [facility] Comment on above: Performed By: #### D ATA1C #### [facility] [address] [place] [address] Dr. Jodi Oglesby IG # 0.07 10e3/ul Critically high 0.00-0.03 [facility] Comment on above: Performed By: #### D ATA1C #### [facility] [address] [place] [address] Dr. Jodi Oglesby IG % 0.5 % Normal 0.0-0.5 [facility] Comment on above: Performed By: #### D ATA1C #### [facility] [address] [place] [address] Dr. Jodi Oglesby LYMPH # 0.9 103/ul Critically low 1.2-3.8 [facility] Comment on above: Performed By: #### D ATA1C #### [facility] [address] [place] [address] Dr. Jodi Oglesby Lymphocytes/100 WBC (Bld) 6.3 % Critically low 20.5-60.0 [facility] Comment on above: Performed By: #### D ATA1C #### [facility] [address] [place] [address] Dr. Jodi Oglesby MANUAL DIFF REQ NO Normal [facility] Comment on above: Performed By: #### D ATA1C #### [facility] [address] [place] [address] Dr. Jodi Oglesby MCH (RBC) [Entitic mass] 30.8 pg Normal 25.9-34.0 [facility] Comment on above: Performed By: #### D ATA1C #### [facility] [address] [address] [address] Jodi Oglesby MCHC (RBC) [Mass/Vol] 32.4 g/dL Normal 29.9-35.2 [facility] Comment on above: Performed By: #### D ATA1C #### [facility] [address] [address] [address] Jodi Oglesby MCV (RBC) [Entitic vol] 95.2 fL Critically high 80.0-94.0 [facility] Comment on above: Performed By: #### D ATA1C #### [facility] [address] [place] [address] Dr. Jodi Oglesby MONO # 0.9 103/ul Critically high 0.3-0.8 [facility] Comment on above: Performed By: #### D ATA1C #### [facility] [address] [place] [address] Dr. Jodi Oglesby Monocytes/100 WBC (Bld) 6.2 % Normal 1.7-12.0 [facility] Comment on above: Performed By: #### D ATA1C #### [facility] [address] [place] [address] Dr. Jodi Oglesby NEUT # 12.8 103/ul Critically high 1.4-6.5 [facility] Comment on above: Performed By: #### D ATA1C #### [facility] [address] [place] [address] Dr. Jodi Oglesby Neutrophils/100 WBC (Bld) 86.2 % Critically high 43.0-75.0 [facility] Comment on above: Performed By: #### D ATA1C #### [facility] [address] [place] [address] Dr. Jodi Oglesby Platelet mean volume (Bld) [Entitic vol] 9.4 fL Critically low 9.5-13.5 [facility] Comment on above: Performed By: #### D ATA1C #### [facility] [address] [place] [address] Dr. Jodi Oglesby PLT 169 103/ul Normal 150-450 [facility] Comment on above: Performed By: #### D ATA1C #### [facility] [address] [place], [place] [address] Dr. Jodi Oglesby RBC 4.15 106/ul Critically low 4.70-6.10 [facility] Comment on above: Performed By: #### D ATA1C #### [facility] [address] [place], [place] [address] Dr. Jodi Oglesby WBC 14.8 103/ul Critically high 4.0-11.0 [facility] Comment on above: Performed By: #### D ATA1C #### [facility] [address] [place], [place] [address] CHEST WO CONon [...] Date: 2021-10-26 17:38 Normal [facility] Covid-19 PCR (CVDTB)on 10-07 SARS-CoV-2 (COVID-19) RNA JESSIE+probe Ql (Unsp spec) Not detected Normal NOT DETECTED [facility] Comment on above: Result Comment: When diagnostic [...] for this test is supported by the [place] of [employer] and Human Service's declaration that [...] By: #### D ATA1C #### [facility] [address] [place] [address] Dr. Jodi Oglesby PROF CHEM 8 (BAS METB)on Anion gap [Moles/Vol] 11.7 mmol/L Normal [facility] Comment on above: Performed By: #### C BC #### [facility] [address] [place] [address] Dr. Jodi Oglesby Calcium [Mass/Vol] 9.2 mg/dL Normal 8.5-10.1 [facility] Comment on above: Performed By: #### C BC #### [facility] [address] [place] [address] Dr. Jodi Oglesby Chloride [Moles/Vol] 101 mmol/L Normal 98-107 [facility] Comment on above: Performed By: #### C BC #### [facility] [address] [place] [address] Dr. Jodi Oglesby CO2 [Moles/Vol] 27.6 mmol/L Normal 21.0-32.0 [facility] Comment on above: Performed By: #### C BC #### [facility] [address] [address] [address] Jodi Oglesby Creatinine [Mass/Vol] 0.98 mg/dL Normal 0.70-1.30 [facility] Comment on above: Performed By: #### C BC #### [facility] [address] [address] [address] Jodi Oglesby EGFR-AF MALTESE >60 Normal >=60 [facility] Comment on above: Performed By: #### C BC #### [facility] [address] [address] [address] Jodi Oglesby EGFR-NON AF MALTESE >60 Normal >=60 [facility] Comment on above: Performed By: #### C BC #### [facility] [address] [place] [address] Dr. Jodi Oglesby Glucose [Mass/Vol] 119 mg/dL Critically high 74-106 T [facility] Comment on above: Performed By: #### C BC #### [facility] [address] [place] [address] Dr. Jodi Oglesby Potassium [Moles/Vol] 4.3 mmol/L Normal 3.5-5.1 [facility] Comment on above: Performed By: #### C BC #### [facility] [address] [place] [address] Dr. Jodi Oglesby Sodium [Moles/Vol] 136 mmol/L Normal 136-145 [facility] Comment on above: Performed By: #### C BC #### [facility] [address] [place] [address] Dr. Jodi Oglesby Urea nitrogen [Mass/Vol] 15.0 mg/dL Normal 7.0-18.0 [facility] Comment on above: Performed By: #### C BC #### [facility] [address] [place] [address] Dr. Jodi Oglesby Urea nitrogen/Creatinine [Mass ratio] 15.3 mg/mg Normal [facility] Comment on above: Performed By: #### C BC #### [facility] [address] [address] [address] Jodi Oglesby XR CLAVICLE RTon 10-26-2021 [...] Date: 2021-10-26 15:37 Normal [facility] XR ELBOW RT MIN 3 VIEWSon XR [...] Date: 2021-10-26 17:23 Normal [facility] XR HIP RT 2 3V W PELVISon [...] CHARLES ALEJANDRA Date: 2021-10-26 15:40 Normal [facility] CARDIAC STRESS/REST INJE CTIONon 10-21-2021 [facility] CARDIAC STRESS/REST INJECTION Patient Name: CHICO BAKER STUDY: MYOCARDIAL PERFUSION STRESS TEST WITH LEXISCAN Performing facility: [facility], [address] [place] [address], [address], [place] [address] [facility] Provider: Adilene Harrington MD, [facility] PCP: Dr. Jori Dunham Supervising provider: Adilene Harrington MD, [facility] INDICATION: AAA Pre-operative risk assessment for AAA scheduled at [facility] on TBD. HISTORY: Gender: M; Age: 81 y/o ; Height: 0 cm; Weight: 0 kg. HTN; Carotid disease PAD AAA Denies smoking. COMPARISON: Previous nuclear testing completed at [place]. Previous echo testing completed on 2020 at [facility]. ACCESSION NUMBER(S): [id number]; [id number]; [id number] ORDERING CLINICIAN: JUDAH HARRINGTON TECHNIQUE: ONE DAY [...] Electronically signed by: ALL HUDSON MD Normal [facility] No Panel Informationon 10-21 Normal [facility] [address] [place] Work Phone: COVID-19 Positive/NegativeOr dered By: Raul Quan on 10-13-2021 SARS-CoV-2 (COVID-19) N gene JESSIE+probe Ql (Resp) Negative Negative [facility] Comment on above: Testing for SARS-CoV -2 by RT-PCR This test was developed and its performance characteristics determined by [employer] ([employer] and validated at the [facility]. This test has not been [...] 10-06-2021 Basophils (Bld) [#/Vol] 0.0 10*3/uL 0.0-0.2 [facility] Basophils/100 WBC Auto (Bld) Ordered By: Raul Quan on 10-06-2021 Basophils/100 WBC (Bld) 0.7 % . [facility] Blood hemoglobin measurement (mass/volume)Ordered By: Raul Quan on 10-06-2021 Hemoglobin (Bld) [Mass/Vol] 13.1 g/dL 13.0-17.0 [facility] Blood leukocytes automated c ount (number/volume)Ordered By: Raul Quan on 10-06-2021 WBC (Bld) [#/Vol] 5.2 10*3/uL 4.5-11.0 [facility] Creatinine and Glomerular fi ltration rate.predicted panel (S/P/Bld)Ordered By: Raul Quan on 10-06-2021 Creatinine [Mass/Vol] 0.98 mg/dL 0.64-1.27 [facility] Eosinophils Auto (Bld) [#/Vo l]Ordered By: Raul Quan on 10-06-2021 Eosinophils (Bld) [#/Vol] 0.1 10*3/uL 0.0-0.45 [facility] Eosinophils/100 WBC Auto (Bl d)Ordered By: Raul Quan on 10-06-2021 Eosinophils/100 WBC (Bld) 1.3 % . [facility] Erythrocyte distribution wid th Auto (RBC) [Ratio]Ordered By: Raul Quan on 10-06-2021 Erythrocyte distribution width (RBC) [Ratio] 13.3 % 12.0-14.8 [facility] Estimated glomerular filtrat ion rate (GFR) non- AmericanOrdered By: Raul Quan on 10-06-2021 GFR/1.73 sq M.predicted among non-blacks MDRD (S/P/Bld) [Vol rate/Area] > 60 mL/Min [facility] Hematocrit Auto (Bld) [Volum e fraction]Ordered By: Raul Quan on 10-06-2021 Hematocrit (Bld) [Volume fraction] 40.4 % 38.8-50.0 [facility] - Hematology and Cell countsOrdered By: Raul Quan on 10-06-2021 Nucleated RBC/100 WBC (Bld) [Ratio] 0.0 % 0-0.5 [facility] Lymphocytes Auto (Bld) [#/Vo l]Ordered By: Raul Quan on 10-06-2021 Lymphocytes (Bld) [#/Vol] 1.0 10*3/uL 1.00-4.8 [facility] Lymphocytes/100 WBC Auto (Bl d)Ordered By: Raul Quan on 10-06-2021 Lymphocytes/100 WBC (Bld) 18.4 % . [facility] MCH Auto (RBC) [Entitic mass ]Ordered By: Raul Quan on 10-06-2021 MCH (RBC) [Entitic mass] 30.9 pg 27.5-35.2 [facility] MCHC Auto (RBC) [Mass/Vol]Or dered By: Raul Quan on 10-06-2021 MCHC (RBC) [Mass/Vol] 32.5 g/dL 32.5-35.6 [facility] MCV Auto (RBC) [Entitic vol] Ordered By: Raul Quan on 10-06-2021 MCV (RBC) [Entitic vol] 95.2 fL 83.5-101 [facility] Monocytes Auto (Bld) [#/Vol] Ordered By: Raul Quan on 10-06-2021 Monocytes (Bld) [#/Vol] 0.6 10*3/uL 0.0-0.8 [facility] Monocytes/100 WBC Auto (Bld) Ordered By: Raul Quan on 10-06-2021 Monocytes/100 WBC (Bld) 12.0 % . [facility] Neutrophils Auto (Bld) [#/Vo l]Ordered By: Raul Quan on 10-06-2021 Neutrophils (Bld) [#/Vol] 3.5 10*3/uL 1.8-7.7 [facility] Neutrophils/100 WBC Auto (Bl d)Ordered By: Raul Quan on 10-06-2021 Neutrophils/100 WBC (Bld) 67.6 % . [facility] No Panel InformationOrdered By: Raul Quan on 10-06-2021 Estimated GFR () > 60 mL/Min [facility] Comment on above: GFR estimated refere nce range: According to KDOQI guidelines, <60 ml/min/1.73m2 is sufficient to diagnose a patient with chronic kidney disease. Pharmacy Creatinine Clearance (Chem N/A [facility] Platelet mean volume Auto (B ld) [Entitic vol]Ordered By: Raul Quan on 10-06-2021 Platelet mean volume (Bld) [Entitic vol] 8.1 fL 6.6-10.1 [facility] Platelets Auto (Bld) [#/Vol] Ordered By: Raul Quan on 10-06-2021 Platelets (Bld) [#/Vol] 185 10*3/uL 150-450 [facility] RBC Auto (Bld) [#/Vol]Ordere d By: Raul Quan on 10-06-2021 RBC (Bld) [#/Vol] 4.25 10*6/uL 3.90-5.60 [facility] Serum or plasma calcium richy urement (mass/volume)Ordered By: Raul Quan on 10-06-2021 Calcium [Mass/Vol] 9.0 mg/dL 8.2-10.2 [facility] Serum or plasma chloride young surement (moles/volume)Ordered By: Raul Quan on 10-06-2021 Chloride [Moles/Vol] 101 mmol/L 95-114 [facility] Serum or plasma glucose richy urement (mass/volume)Ordered By: Raul Quan on 10-06-2021 Glucose [Mass/Vol] 187 mg/dL 70-100 [facility] Comment on above: ADA recommended refe rence range Random Glucose Reference Range is dependent on time and content of last meal. Glucose of more than 200 mg/dL in a nonstressed, ambulatory subject supports the diagnosis of Diabetes Mellitus. Serum or plasma potassium me asurement (moles/volume)Ordered By: Raul Quan on 10-06-2021 Potassium [Moles/Vol] 4.0 mmol/L 3.5-5.1 [facility] Serum or plasma sodium measu rement (moles/volume)Ordered By: Raul Quan on 10-06-2021 Sodium [Moles/Vol] 135 mmol/L 136-146 [facility] Serum or plasma total carbon dioxide measurement (moles/volume)Ordered By: Raul Quan on 10-06-2021 CO2 [Moles/Vol] 25.1 mmol/L 22.0-30.0 [facility] Serum or plasma urea nitroge n measurement (mass/volume)Ordered By: Raul Quan on 10-06-2021 Urea nitrogen [Mass/Vol] 13 mg/dL 9-23 [facility] CBC AUTO DIFFon 09-22-2021 BASO # 0.0 103/ul Normal 0.0-0.1 [facility] Comment on above: Performed By: #### C BC #### [facility] [address] [address] [address] Jodi Oglesby Basophils/100 WBC (Bld) 0.3 % Normal 0.2-2.0 [facility] Comment on above: Performed By: #### C BC #### [facility] [address] [address] [address] Jodi Oglesby EO # 0.1 103/ul Normal 0.0-0.7 [facility] Comment on above: Performed By: #### C BC #### [facility] [address] [address] [address] Jodi Oglesby Eosinophils/100 WBC (Bld) 0.8 % Critically low 0.9-7.0 [facility] Comment on above: Performed By: #### C BC #### [facility] [address] [address] [address] Jodi Oglesby Erythrocyte distribution width (RBC) [Ratio] 12.5 % Normal 11.0-15.0 [facility] Comment on above: Performed By: #### C BC #### [facility] [address] [address] [address] Jodi Oglesby Hematocrit (Bld) [Volume fraction] 43.6 % Normal 42.0-54.0 [facility] Comment on above: Performed By: #### C BC #### [facility] [address] [address] [address] Jodi Oglesby Hemoglobin (Bld) [Mass/Vol] 14.1 g/dL Normal 14.0-18.0 [facility] Comment on above: Performed By: #### C BC #### [facility] [address] [place] [address] Dr. Jodi Oglesby IG # 0.03 10e3/ul Normal 0.00-0.03 [facility] Comment on above: Performed By: #### C BC #### [facility] [address] [place] [address] Dr. Joid Oglesby IG % 0.3 % Normal 0.0-0.5 [facility] Comment on above: Performed By: #### C BC #### [facility] [address] [place] [address] Dr. Jodi Oglesby LYMPH # 1.5 103/ul Normal 1.2-3.8 [facility] Comment on above: Performed By: #### C BC #### [facility] [address] [place] [address] Dr. Jodi Oglesby Lymphocytes/100 WBC (Bld) 17.2 % Critically low 20.5-60.0 [facility] Comment on above: Performed By: #### C BC #### [facility] [address] [place] [address] Dr. Jodi Oglesby MANUAL DIFF REQ NO Normal [facility] Comment on above: Performed By: #### C BC #### [facility] [address] [place] [address] Dr. Jodi Olgesby MCH (RBC) [Entitic mass] 31.1 pg Normal 25.9-34.0 [facility] Comment on above: Performed By: #### C BC #### [facility] [address] [place] [address] Dr. Jodi Oglesby MCHC (RBC) [Mass/Vol] 32.3 g/dL Normal 29.9-35.2 [facility] Comment on above: Performed By: #### C BC #### [facility] [address] [place] [address] Dr. Jodi Oglesby MCV (RBC) [Entitic vol] 96.0 fL Critically high 80.0-94.0 [facility] Comment on above: Performed By: #### C BC #### [facility] [address] [place] [address] Dr. Jodi Oglesby MONO # 1.0 103/ul Critically high 0.3-0.8 [facility] Comment on above: Performed By: #### C BC #### [facility] [address] [place] [address] Dr. Jodi Oglesby Monocytes/100 WBC (Bld) 10.8 % Normal 1.7-12.0 [facility] Comment on above: Performed By: #### C BC #### [facility] [address] [place] [address] Dr. Jodi Oglesby NEUT # 6.2 103/ul Normal 1.4-6.5 [facility] Comment on above: Performed By: #### C BC #### [facility] [address] [place] [address] Dr. Jodi Oglesby Neutrophils/100 WBC (Bld) 70.6 % Normal 43.0-75.0 [facility] Comment on above: Performed By: #### C BC #### [facility] [address] [place] [address] Dr. Jodi Oglesby Platelet mean volume (Bld) [Entitic vol] 9.6 fL Normal 9.5-13.5 [facility] Comment on above: Performed By: #### C BC #### [facility] [address] [place] [address] Dr. Jodi Oglesby PLT 206 103/ul Normal 150-450 [facility] Comment on above: Performed By: #### C BC #### [facility] [address] [place] [address] Dr. Jodi Oglesby RBC 4.54 106/ul Critically low 4.70-6.10 [facility] Comment on above: Performed By: #### C BC #### [facility] [address] [place] [address] Dr. Jodi Oglesby WBC 8.8 103/ul Normal 4.0-11.0 [facility] Comment on above: Performed By: #### C BC #### [facility] [address] [place] [address] Dr. Jodi Oglesby PROF CHEM 8 (BAS METB)on Anion gap [Moles/Vol] 9.5 mmol/L Normal [facility] Comment on above: Performed By: #### B MP #### [facility] [address] [place] [address] Dr. Jodi Oglesby Calcium [Mass/Vol] 9.4 mg/dL Normal 8.5-10.1 [facility] Comment on above: Performed By: #### B MP #### [facility] [address] [place] [address] Dr. Jodi Oglesby Chloride [Moles/Vol] 100 mmol/L Normal 98-107 [facility] Comment on above: Performed By: #### B MP #### [facility] [address] [place] [address] Dr. Jodi Oglesby CO2 [Moles/Vol] 33.2 mmol/L Critically high 21.0-32.0 [facility] Comment on above: Performed By: #### B MP #### [facility] [address] [place] [address] Dr. Jodi Oglesby Creatinine [Mass/Vol] 0.99 mg/dL Normal 0.70-1.30 [facility] Comment on above: Performed By: #### B MP #### [facility] [address] [place] [address] Dr. Jodi Oglesby EGFR-AF MALTESE >60 Normal >=60 [facility] Comment on above: Performed By: #### B MP #### [facility] [address] [place] [address] Dr. Jodi Oglesby EGFR-NON AF MALTESE >60 Normal >=60 [facility] Comment on above: Performed By: #### B MP #### [facility] [address] [place] [address] Dr. Jodi Oglesby Glucose [Mass/Vol] 109 mg/dL Critically high 74-106 [facility] Comment on above: Performed By: #### B MP #### [facility] [address] [place] [address] Dr. Jodi Oglesby Potassium [Moles/Vol] 4.7 mmol/L Normal 3.5-5.1 [facility] Comment on above: Performed By: #### B MP #### [facility] [address] [address] [address] Jodi Oglesby Sodium [Moles/Vol] 138 mmol/L Normal 136-145 [facility] Comment on above: Performed By: #### B MP #### [facility] [address] [address] [address] Jodi Oglesby Urea nitrogen [Mass/Vol] 17.0 mg/dL Normal 7.0-18.0 [facility] Comment on above: Performed By: #### B MP #### [facility] [address] [place] [address] Dr. Jodi Oglesby Urea nitrogen/Creatinine [Mass ratio] 17.2 mg/mg Normal [facility] Comment on above: Performed By: #### B MP #### [facility] [address] [place] [address] Dr. Jodi Oglesby Creatinine (Bld) [Mass/Vol]O rdered By: Tamar Perea on 09-18-2021 Creatinine [Mass/Vol] 0.8 mg/dL 0.6-1.3 [facility] Comment on above: ER/ESD physician is notified/shown all ISTAT results. Critical values may be confirmed by laboratory testing if deemed necessary by ER attending doctor. No Panel InformationOrdered By: Tamar Perea on 09-18-2021 POC Estimated GFR > 60 [facility] Comment on above: GFR estimated refere nce range: According to KDOQI guidelines, <60 ml/min/1.73m2 is sufficient to diagnose a patient with chronic kidney disease. POC Estimated GFR Non- Amer > 60 [facility] CBC AUTO DIFFon 08-12-2021 BASO # 0.0 103/ul Normal 0.0-0.1 [facility] Comment on above: Performed By: #### C BC #### [facility] [address] [address] [address] Jodi Oglesby Basophils/100 WBC (Bld) 0.3 % Normal 0.2-2.0 [facility] Comment on above: Performed By: #### C BC #### [facility] [address] [place] [address] Dr. Jodi Oglesby EO # 0.1 103/ul Normal 0.0-0.7 [facility] Comment on above: Performed By: #### C BC #### [facility] [address] [place] [address] Dr. Jodi Oglesby Eosinophils/100 WBC (Bld) 1.8 % Normal 0.9-7.0 [facility] Comment on above: Performed By: #### C BC #### [facility] [address] [place] [address] Dr. Jodi Oglesby Erythrocyte distribution width (RBC) [Ratio] 12.6 % Normal 11.0-15.0 [facility] Comment on above: Performed By: #### C BC #### [facility] [address] [place] [address] Dr. Jodi Oglesby Hematocrit (Bld) [Volume fraction] 40.9 % Critically low 42.0-54.0 [facility] Comment on above: Performed By: #### C BC #### [facility] [address] [place] [address] Dr. Jodi Oglesby Hemoglobin (Bld) [Mass/Vol] 13.4 g/dL Critically low 14.0-18.0 [facility] Comment on above: Performed By: #### C BC #### [facility] [address] [place] [address] Dr. Jodi Oglesby IG # 0.03 10e3/ul Normal 0.00-0.03 [facility] Comment on above: Performed By: #### C BC #### [facility] [address] [place] [address] Dr. Jodi Oglesby IG % 0.4 % Normal 0.0-0.5 [facility] Comment on above: Performed By: #### C BC #### [facility] [address] [place] [address] Dr. Jodi Oglesby LYMPH # 1.4 103/ul Normal 1.2-3.8 [facility] Comment on above: Performed By: #### C BC #### [facility] [address] [address] [address] Jodi Oglesby Lymphocytes/100 WBC (Bld) 18.6 % Critically low 20.5-60.0 [facility] Comment on above: Performed By: #### C BC #### [facility] [address] [place] [address] Dr. Jodi Oglesby MCH (RBC) [Entitic mass] 31.5 pg Normal 25.9-34.0 [facility] Comment on above: Performed By: #### C BC #### [facility] [address] [place] [address] Dr. Jodi Oglesby MCHC (RBC) [Mass/Vol] 32.8 g/dL Normal 29.9-35.2 [facility] Comment on above: Performed By: #### C BC #### [facility] [address] [place] [address] Dr. Jodi Oglesby MCV (RBC) [Entitic vol] 96.0 fL Critically high 80.0-94.0 [facility] Comment on above: Performed By: #### C BC #### [facility] [address] [place] [address] Dr. Jodi Oglesby MONO # 0.7 103/ul Normal 0.3-0.8 [facility] Comment on above: Performed By: #### C BC #### [facility] [address] [place] [address] Dr. Jodi Oglesby Monocytes/100 WBC (Bld) 9.7 % Normal 1.7-12.0 [facility] Comment on above: Performed By: #### C BC #### [facility] [address] [place] [address] Dr. Jodi Oglesby NEUT # 5.1 103/ul Normal 1.4-6.5 [facility] Comment on above: Performed By: #### C BC #### [facility] [address] [place] [address] Dr. Jodi Oglesby Neutrophils/100 WBC (Bld) 69.2 % Normal 43.0-75.0 [facility] Comment on above: Performed By: #### C BC #### [facility] [address] [address] [address] Jodi Oglesby Platelet mean volume (Bld) [Entitic vol] 9.8 fL Normal 9.5-13.5 [facility] Comment on above: Performed By: #### C BC #### [facility] [address] [place] [address] Dr. Jodi Oglesby PLT 195 103/ul Normal 150-450 [facility] Comment on above: Performed By: #### C BC #### [facility] [address] [place] [address] Dr. Jodi Oglesby RBC 4.26 106/ul Critically low 4.70-6.10 [facility] Comment on above: Performed By: #### C BC #### [facility] [address] [place] [address] Dr. Jodi Oglesby WBC 7.4 103/ul Normal 4.0-11.0 [facility] Comment on above: Performed By: #### C BC #### [facility] [address] [place] [address] Dr. Jodi Oglesby ASHLEY - TSHon 08-12-2021 TSH 1.879 uIU/mL Normal 0.358-3.740 [facility] Comment on above: Performed By: #### D LULU DATBMP #### [facility] [address] [place] [address] Dr. Jodi Oglesby TSH RANGE SEE BELOW Normal [facility] Comment on above: Result Comment: <0.3 4 UIU/ml HYPERTHYROID 0.34-5.60 UIU/ml EUTHYROID >5.60 UIU/ml HYPOTHYROID Performed By: #### D ATTKENDELL DATBMP #### [facility] [address] [place] [address] Dr. Jodi Oglesby ASHLEY- BMP WITH LIPIDon 2021 Anion gap [Moles/Vol] 11.4 mmol/L Normal [facility] Comment on above: Performed By: #### D ATTSH DATBMP #### [facility] [address] [address] [address] Jodi Oglesby Calcium [Mass/Vol] 8.7 mg/dL Normal 8.5-10.1 [facility] Comment on above: Performed By: #### D ATTSH, DATBMP #### [facility] [address] [address] [address] Jodi Oglesby Chloride [Moles/Vol] 105 mmol/L Normal 98-107 [facility] Comment on above: Performed By: #### D ATTSH, DATBMP #### [facility] [address] [address] [address] Jodi Oglesby Cholesterol [Mass/Vol] 113 mg/dL Normal <=200 [facility] Comment on above: Performed By: #### D ATTSH, DATBMP #### [facility] [address] [place] [address] Dr. Jodi Oglesby Cholesterol in HDL [Mass/Vol] 47 mg/dL Normal 40-60 [facility] Comment on above: Performed By: #### D ATTSH, DATBMP #### [facility] [address] [place] [address] Dr. Jodi Oglesby Cholesterol in LDL [Mass/Vol] 58.0 mg/dL Normal [facility] Comment on above: Performed By: #### D ATTSH, DATBMP #### [facility] [address] [place] [address] Dr. Jodi Oglesby CO2 [Moles/Vol] 29.0 mmol/L Normal 21.0-32.0 [facility] Comment on above: Performed By: #### D ATTSH, DATBMP #### [facility] [address] [place] [address] Dr. Jodi Oglseby Creatinine [Mass/Vol] 0.99 mg/dL Normal 0.70-1.30 [facility] Comment on above: Performed By: #### D ATTSH, DATBMP #### [facility] [address] [place] [address] Dr. Jodi Oglesby EGFR-AF MALTESE >60 Normal >=60 [facility] Comment on above: Performed By: #### D ATTSH, DATBMP #### [facility] [address] [address] [address] Jodi Oglesby EGFR-NON AF MALTESE >60 Normal >=60 [facility] Comment on above: Performed By: #### D ATTSH, DATBMP #### [facility] [address] [address] [address] Jodi Oglesby Glucose [Mass/Vol] 116 mg/dL Critically high 74-106 [facility] Comment on above: Performed By: #### D ATTSH, DATBMP #### [facility] [address] [address] [address] Jodi Oglesby HDL NORMAL > or = 60 mg/dl - LO W CARDIOVASCULAR RISK <40 mg/dl - HIGH CARDIOVASCULAR RISK Normal [facility] Comment on above: Performed By: #### D ATTKENDELL, DATBMP #### [facility] [address] [address] [address] Jodi Oglesby LDL CALC NORMAL SEE BELOW Normal [facility] Comment on above: Result Comment: <100 mg/dl OPTIMAL 100 - 129 mg/dl NEAR OR ABOVE OPTIMAL 130 - 159 mg/dl BORDERLINE HIGH 160 - 189 mg/dl HIGH >190 mg/dl VERY HIGH Performed By: #### D LULU, DATBMP #### [facility] [address] [address] [address] Jodi Oglesby Potassium [Moles/Vol] 4.4 mmol/L Normal 3.5-5.1 [facility] Comment on above: Performed By: #### D ATTKENDELL, DATBMP #### [facility] [address] [address] [address] Jodi Oglesby Sodium [Moles/Vol] 141 mmol/L Normal 136-145 [facility] Comment on above: Performed By: #### D ATTKENDELL, DATBMP #### [facility] [address] [address] [address] Jodi Oglesby Triglyceride [Mass/Vol] 40 mg/dL Normal <=150 [facility] Comment on above: Performed By: #### D ATTKENDELL, DATBMP #### [facility] [address] [address] [address] Jodi Oglesby Urea nitrogen [Mass/Vol] 16.0 mg/dL Normal 7.0-18.0 [facility] Comment on above: Performed By: #### D ATTKENDELL, DATBMP #### [facility] [address] [address] [address] Jodi Oglesby Urea nitrogen/Creatinine [Mass ratio] 16.2 mg/mg Normal [facility] Comment on above: Performed By: #### D LULU, DATBMP #### [facility] [address] [address] [address] Jodi Oglesby VLDL CALC 8.0 mg/dL Normal [facility] Comment on above: Performed By: #### D LULU, DATBMP #### [facility] [address] [address] [address] Jodi Oglesby GLYCOHEMOGLOBIN A1Con 2021 ADA RECOMMENDATION SEE BELOW Normal [facility] Comment on above: Result Comment: ADA RECOMMENDED LIMIT 4.0 - 6.0 ADA THERAPEUTIC TARGET < 7.0 ACTION SUGGESTED > 7.0 Performed By: #### D ATA1C #### [facility] [address] [address] [address] Jodi Oglesby Glucose [Mass/Vol] 131 mg/dL Normal [facility] Comment on above: Performed By: #### D ATA1C #### [facility] [address] [address] [address] Jodi Oglesby HbA1c (Bld) [Mass fraction] 6.2 % Normal 4.5-6.2 [facility] Comment on above: Performed By: #### D ATA1C #### [facility] [address] [address] [address] Jodi Oglesby CNOVon 12-11-2020 CNOV Office Visit ([facility]AS[facility] ) -- CHICO BAKER ([id number]) 1940 M Date Time Provider Department 12/11/20 10:45 AM POWER CATHERINE During your visit today, we recorded the following information about you: Pulse Blood pressure Weight Height 60/minute 122/78 67.6 kg 1.702 m Power Catherine MD 12/11/2020 11:17 AM Signed [facility] OUTPATIENT VISIT DATE December 11, 2020 OUTPATIENT VISIT TYPE EST PRIMARY CARE PHYSICIAN: Shailesh Dunham (Jere) [address] [place] [address] REFERRING PHYSICIAN Power [facility] [address] [facility] [id number] CHIEF COMPLAINT: Patient presents with: Established Patient [...] Power Catherine MD Referring Provider: POWER CATHERINE [[id number]] Allergies As of Date: 12/11/2020 Noted Allergy Reaction SHALINI INHIBITORS 05/09/2015 16 - Unknown GADOLINIUM-CONTAINING CONTRAST ME*05/09/2015 16 - Unknown TETANUS VACCINES AND TOXOID 05/16/2015 16 - Unknown Date Reviewed: 12/11/2020 Reviewed by: Harika Menjivar - Fully Assessed Reason for Visit: Established Patient [175] Follow Up [171] Primary Visit Diagnosis:AAA (abdominal aortic aneurysm) without rupture (HCC) [I71.4] Order(s):US ABD AORTA COMPLETE [facility] [[id number]] Order #: [id number] FUTURE Prescriptions as of 12/11/2020 - pravastatin (PRAVACHOL) 40 mg tablet Take 40 mg by mouth once daily. - nitroglycerin sublingual (NITROQUICK) 0.3 mg SL tablet (more content not included)... Normal [facility] 10-30-2020 CNPN Telephone ([facility]) -- CHICO BAKER ([id number]) 1940 M Date Time Provider Department 10/30/20 [...] [I71.4] Order(s):US ABD AORTA COMPLE[facility] [[id number]] Order #: [id number] FUTURE Prescriptions as of 11/04/2020 - aspirin, [...] Status:Closed by SHERI MOLINA on 11/04/20 Normal [facility] Vital Signs Date Time Vital Sign Value Performing Clinician Facility 04-14-2023 10:15-0500 Body height 170.18 cm [facility] Other 04-14-2023 10:15-0500 Body mass index (BMI) [Ratio] 21.64 kg/m2 [facility] Other 04-14-2023 10:15-0500 Body weight 62.69 kg [facility] Other 04-14-2023 10:15-0500 Diastolic blood pressure 58 mm[Hg] [facility] Other [facility] Other 04-14-2023 10:15-0500 Respiratory rate 12 /min [facility] Other [facility] Other 04-14-2023 10:15-0500 Systolic blood pressure 118 mm[Hg] [facility] Other [facility] Other 03-29-2023 10:00-0500 Body height 170.18 cm [facility] Other 03-29-2023 10:00-0500 Body mass index (BMI) [Ratio] 21.8 kg/m2 [facility] Other 03-29-2023 10:00-0500 Body weight 63.14 kg Shailesh Ball Other [facility] Other 03-29-2023 10:00-0500 Diastolic blood pressure 74 mm[Hg] Shailesh Ball Other [facility] Other 03-29-2023 10:00-0500 Respiratory rate 12 /min Shailesh Ball Other [facility] Other 03-29-2023 10:00-0500 Systolic blood pressure 132 mm[Hg] Shailesh Ball Other [facility] Other 01-13-2023 08:49-0500 Blood Pressure Location Ivelisse Lue [facility] 01-13-2023 08:49-0500 Diastolic blood pressure 74 mm[Hg] Ivelisse L[facility] 01-13-2023 08:49-0500 Heart rate 68 /min Ivelisse Lue [facility] 01-13-2023 08:49-0500 Respiratory rate 16 /min Ivelisse Lue [facility] 01-13-2023 08:49-0500 Systolic blood pressure 156 mm[Hg] Ivelisse Lue [facility] 11-10-2022 10:30-0400 Body height 170.18 cm Raul Quan Other [facility] Other 11-10-2022 10:30-0400 Body mass index (BMI) [Ratio] 20.99 kg/m2 Raul Quan Other [facility] Other 11-10-2022 10:30-0400 Body temperature 97.8 [degF] Raul Avelina Other [facility] Other 11-10-2022 10:30-0400 Body weight 60.78 kg Raul Avelina Other [facility] Other 11-10-2022 10:30-0400 Diastolic blood pressure 64 mm[Hg] Raul Quan Other [facility] Other 11-10-2022 10:30-0400 SaO2% (BldA) [Mass fraction] 98 % Raul Avelina Other [facility] Other 11-10-2022 10:30-0400 Systolic blood pressure 110 mm[Hg] Raul Avelina Other [facility] Other 10-07-2022 08:49-0400 Blood Pressure Location I[facility] 10-07-2022 08:49-0400 Diastolic blood pressure 74 mm[Hg] Ivelisse Lue [facility] 10-07-2022 08:49-0400 Heart rate 75 /min Ivelisse Lue [facility] 10-07-2022 08:49-0400 Systolic blood pressure 139 mm[Hg] Ivelisse Lue [facility] 08-04-2022 11:15-0400 Body height 170.18 cm Raul Buehrer Other [facility] Other 08-04-2022 11:15-0400 Body mass index (BMI) [Ratio] 21.77 kg/m2 Raul Lawrencerer Other [facility] Other 08-04-2022 11:15-0400 Body temperature 97.8 [degF] Raul Lawrencerer Other [facility] Other 08-04-2022 11:15-0400 Body weight 63.05 kg Raul Lawrencerer Other [facility] Other 08-04-2022 11:15-0400 Diastolic blood pressure 68 mm[Hg] Raul Melindarer Other [facility] Other 08-04-2022 11:15-0400 SaO2% (BldA) [Mass fraction] 97 % Raul Lawrencerer Other [facility] Other 08-04-2022 11:15-0400 Systolic blood pressure 108 mm[Hg] Raul Doverehrer Other [facility] Other 07-09-2022 08:00-0400 Body temperature 98.6 [degF] DO Shailesh Ball Work Phone: [facility] 07-09-2022 08:00-0400 Diastolic blood pressure 72 mm[Hg] DO Shailesh Ball Work Phone: [facility] 07-09-2022 08:00-0400 Heart rate 69 /min DO Shailesh Ball Work Phone: [facility] 07-09-2022 08:00-0400 Respiratory rate 16 /min DO Shailesh Ball Work Phone: [facility] 07-09-2022 08:00-0400 SaO2% (BldA) [Mass fraction] 97 % DO Shailesh Ball Work Phone: [facility] 07-09-2022 08:00-0400 Systolic blood pressure 154 mm[Hg] DO Shailesh Ball Work Phone: [facility] 07-09-2022 06:00-0400 Body weight 65.8 kg DO Shailesh Ball Work Phone: [facility] 07-08-2022 10:52-0400 Inhaled oxygen flow rate 8 L/min DO Shailesh Ball Work Phone: [facility] 07-08-2022 08:34-0400 Body height 167.64 cm DO Shailesh Ball Work Phone: [facility] 07-08-2022 08:34-0400 Body mass index (BMI) [Ratio] 22.7 kg/m2 DO Shailesh Ball Work Phone: [facility] 06-24-2022 09:27-0400 Blood Pressure Location Ivelisse Lue [facility] 06-24-2022 09:27-0400 Diastolic blood pressure 75 mm[Hg] Ivelisse Lue [facility] 06-24-2022 09:27-0400 Heart rate 66 /min Ivelisse Lue [facility] 06-24-2022 09:27-0400 Respiratory rate 16 /min Ivelisse Lue [facility] 06-24-2022 09:27-0400 Systolic blood pressure 120 mm[Hg] Ivelisse Lue [facility] 05-21-2022 09:30-0400 Body height 170.18 cm Shailesh Ball Other [facility] Other 05-21-2022 09:30-0400 Body mass index (BMI) [Ratio] 21.8 kg/m2 Shailesh Ball Other [facility] Other 05-21-2022 09:30-0400 Body weight 63.14 kg Shailesh Ball Other [facility] Other 05-21-2022 09:30-0400 Diastolic blood pressure 73 mm[Hg] Shailesh Ball Other [facility] Other 05-21-2022 09:30-0400 Respiratory rate 12 /min Shailesh Ball Other [facility] Other 05-21-2022 09:30-0400 Systolic blood pressure 121 mm[Hg] Shailesh Ball Other [facility] Other 05-19-2022 11:00-0400 Body height 170.18 cm Tamar Martinezmoy Other [facility] Other 05-19-2022 11:00-0400 Body mass index (BMI) [Ratio] 22.02 kg/m2 Tamar Perea Other [facility] Other 05-19-2022 11:00-0400 Body temperature 97.5 [degF] Tamar Perea Other [facility] Other 05-19-2022 11:00-0400 Body weight 63.78 kg Tamar Brit Other [facility] Other 05-19-2022 11:00-0400 Diastolic blood pressure 76 mm[Hg] Tamar Perea Other [facility] Other 05-19-2022 11:00-0400 SaO2% (BldA) [Mass fraction] 98 % Tamar Perea Other [facility] Other 05-19-2022 11:00-0400 Systolic blood pressure 148 mm[Hg] Tamar Perea Other [facility] Other 04-15-2022 08:57-0500 Blood Pressure Location Ivelisse Lue [facility] 04-15-2022 08:57-0500 Diastolic blood pressure 78 mm[Hg] Ivelisse Lue [facility] 04-15-2022 08:57-0500 Heart rate 68 /min Ivelisse Lue [facility] 04-15-2022 08:57-0500 Respiratory rate 16 /min Ivelisse Lue [facility] 04-15-2022 08:57-0500 Systolic blood pressure 122 mm[Hg] Ivelisse Lue [facility] 03-10-2022 11:30-0500 Body height 170.18 cm Raul Quan Other [facility] Other 03-10-2022 11:30-0500 Body mass index (BMI) [Ratio] 21.2 kg/m2 Raul Quan Other [facility] Other 03-10-2022 11:30-0500 Body temperature 97.8 [degF] Raul Quan Other [facility] Other 03-10-2022 11:30-0500 Body weight 61.42 kg Raul Osorior Other [facility] Other 03-10-2022 11:30-0500 Diastolic blood pressure 64 mm[Hg] Raul Lawrencerer Other [facility] Other 03-10-2022 11:30-0500 SaO2% (BldA) [Mass fraction] 98 % Raul Lawrencerer Other [facility] Other 03-10-2022 11:30-0500 Systolic blood pressure 108 mm[Hg] Raul Lawrencerer Other [facility] Other 02-25-2022 11:09-0500 Blood Pressure Location IVA ARASH [facility] 02-25-2022 11:09-0500 Diastolic blood pressure 63 mm[Hg] IVA ARASH [facility] 02-25-2022 11:09-0500 Heart rate 64 /min IVA ARASH [facility] 02-25-2022 11:09-0500 Systolic blood pressure 105 mm[Hg] IVA ARASH [facility] 02-18-2022 14:12-0500 Blood Pressure Location IVA ARASH [facility] 02-18-2022 14:12-0500 Diastolic blood pressure 83 mm[Hg] IVA ARASH [facility] 02-18-2022 14:12-0500 Heart rate 70 /min IVA ANTOINE [facility] 02-18-2022 14:12-0500 Systolic blood pressure 142 mm[Hg] IVA ANTOINE [facility] 02-11-2022 08:42-0500 Blood Pressure Location Ivelisse Lue [facility] 02-11-2022 08:42-0500 Diastolic blood pressure 73 mm[Hg] Ivelisse Lue [facility] 02-11-2022 08:42-0500 Heart rate 68 /min Ivelisse Lue [facility] 02-11-2022 08:42-0500 Respiratory rate 16 /min Ivelisse Lue [facility] 02-11-2022 08:42-0500 Systolic blood pressure 150 mm[Hg] I[facility]isse Lue [facility] 02-05-2022 08:00-0500 Body temperature 99.1 [degF] DO Shailesh Ball Work Phone: [facility] 02-05-2022 08:00-0500 Diastolic blood pressure 76 mm[Hg] DO Shailesh Ball Work Phone: [facility] 02-05-2022 08:00-0500 Heart rate 78 /min DO Shailesh Ball Work Phone: [facility] 02-05-2022 08:00-0500 Respiratory rate 16 /min DO Shailesh Ball Work Phone: [facility] 02-05-2022 08:00-0500 SaO2% (BldA) [Mass fraction] 95 % DO Shailesh Ball Work Phone: [facility] 02-05-2022 08:00-0500 Systolic blood pressure 168 mm[Hg] DO Shailesh Ball Work Phone: [facility] 02-05-2022 03:21-0500 Body weight 64.1 kg DO Shailesh Ball Work Phone: [facility] 02-04-2022 11:43-0500 Inhaled oxygen flow rate 6 L/min DO Shailesh Ball Work Phone: [facility] 02-04-2022 09:31-0500 Body height 167.64 cm DO Shailesh Ball Work Phone: [facility] 02-04-2022 09:31-0500 Body mass index (BMI) [Ratio] 23.3 kg/m2 DO Shailesh Ball Work Phone: [facility] 01-20-2022 12:30-0500 Body height 170.18 cm Raul Quan Other [facility] Other 01-20-2022 12:30-0500 Body mass index (BMI) [Ratio] 21.92 kg/m2 Raul Quan Other [facility] Other 01-20-2022 12:30-0500 Body temperature 97.7 [degF] Raul Quan Other [facility] Other 01-20-2022 12:30-0500 Body weight 63.5 kg Raul Quan Other [facility] Other 01-20-2022 12:30-0500 Diastolic blood pressure 64 mm[Hg] Raul Quan Other [facility] Other 01-20-2022 12:30-0500 SaO2% (BldA) [Mass fraction] 99 % Raul Quan Other [facility] Other 01-20-2022 12:30-0500 Systolic blood pressure 116 mm[Hg] Raul Buehrer Other [facility] Other 01-05-2022 11:15-0400 Body height 170.18 cm Raul Buehrer Other [facility] Other 01-05-2022 11:15-0400 Body mass index (BMI) [Ratio] 21.92 kg/m2 Raul Buehrer Other [facility] Other 01-05-2022 11:15-0400 Body temperature 96 [degF] Raul Buehrer Other [facility] Other 01-05-2022 11:15-0400 Body weight 63.5 kg Raul Doverehrer Other [facility] Other 01-05-2022 11:15-0400 Diastolic blood pressure 58 mm[Hg] Raul Buehrer Other [facility] Other 01-05-2022 11:15-0400 SaO2% (BldA) [Mass fraction] 99 % Raul Buehrer Other [facility] Other 01-05-2022 11:15-0400 Systolic blood pressure 100 mm[Hg] Raul Buehrer Other [facility] Other 11-24-2021 12:30-0400 Body height 170.18 cm Tamar Perea Other [facility] Other 11-24-2021 12:30-0400 Body mass index (BMI) [Ratio] 21.92 kg/m2 Tamar Perea Other [facility] Other 11-24-2021 12:30-0400 Body temperature 97.5 [degF] Tamar Perea Other [facility] Other 11-24-2021 12:30-0400 Body weight 63.5 kg Tamar Perea Other [facility] Other 11-24-2021 12:30-0400 Diastolic blood pressure 50 mm[Hg] Tamar Perea Other [facility] Other 11-24-2021 12:30-0400 SaO2% (BldA) [Mass fraction] 98 % Tamar Perea Other [facility] Other 11-24-2021 12:30-0400 Systolic blood pressure 96 mm[Hg] Tamar Perea Other [facility] Other 10-21-2021 07:30-0400 50 1 Shailesh E Ball Work Phone: [place] [id number] [place] Work Phone: Comment on above: [id number] 10-15-2021 08:27-0400 Body height 167.64 cm DO Shailesh Ball Work Phone: [facility] 10-15-2021 08:27-0400 Body temperature 97.7 [degF] DO Shailesh Ball Work Phone: [facility] 10-15-2021 08:27-0400 Body weight 66 kg DO Shailesh Ball Work Phone: [facility] 10-15-2021 08:27-0400 Diastolic blood pressure 75 mm[Hg] DO Shailesh Ball Work Phone: [facility] 10-15-2021 08:27-0400 Heart rate 73 /min DO Shailesh Ball Work Phone: [facility] 10-15-2021 08:27-0400 Respiratory rate 16 /min DO Shailesh Ball Work Phone: [facility] 10-15-2021 08:27-0400 SaO2% (BldA) [Mass fraction] 97 % DO Shailesh Ball Work Phone: [facility] 10-15-2021 08:27-0400 Systolic blood pressure 143 mm[Hg] DO Shailesh Ball Work Phone: [facility] 09-30-2021 13:30-0400 Body height 170.18 cm Tamar Zhukhalida Other [facility] Other 09-30-2021 13:30-0400 Body mass index (BMI) [Ratio] 24.27 kg/m2 Tamar Perea Other [facility] Other 09-30-2021 13:30-0400 Body temperature 97.4 [degF] Tamar Perea Other [facility] Other 09-30-2021 13:30-0400 Body weight 70.31 kg Tamar Martinezjerardokhalida Other [facility] Other 09-30-2021 13:30-0400 Diastolic blood pressure 70 mm[Hg] Tamar Martinezmoy Other [facility] Other 09-30-2021 13:30-0400 SaO2% (BldA) [Mass fraction] 98 % Tamar Martinezmoy Other [facility] Other 09-30-2021 13:30-0400 Systolic blood pressure 140 mm[Hg] Tamar Perea Other [facility] Other 09-15-2021 11:00-0400 Body height 170.18 cm Tamar Perea Other [facility] Other 09-15-2021 11:00-0400 Body mass index (BMI) [Ratio] 24.27 kg/m2 Tamar Perea Other [facility] Other 09-15-2021 11:00-0400 Body temperature 96.4 [degF] Tamar Perea Other [facility] Other 09-15-2021 11:00-0400 Body weight 70.31 kg Tamar Perea Other [facility] Other 09-15-2021 11:00-0400 Diastolic blood pressure 72 mm[Hg] Tamar Perea Other [facility] Other 09-15-2021 11:00-0400 SaO2% (BldA) [Mass fraction] 98 % Tamar Perea Other [facility] Other 09-15-2021 11:00-0400 Systolic blood pressure 138 mm[Hg] Tamar Perea Other [facility] Other 07-28-2021 10:45-0400 Body height 170.18 cm Raul Quan Other [facility] Other 07-28-2021 10:45-0400 Body mass index (BMI) [Ratio] 24.27 kg/m2 Raul Buehrer Other [facility] Other 07-28-2021 10:45-0400 Body temperature 96.6 [degF] Raul Quan Other [facility] Other 07-28-2021 10:45-0400 Body weight 70.31 kg Raul Quan Other [facility] Other 07-28-2021 10:45-0400 Diastolic blood pressure 78 mm[Hg] Raul Quan Other [facility] Other 07-28-2021 10:45-0400 SaO2% (BldA) [Mass fraction] 98 % Raul Quan Other [facility] Other 07-28-2021 10:45-0400 Systolic blood pressure 190 mm[Hg] Raul Quan Other [facility] Other Encounters Encounter Date Encounter Type Care Provider Facility Start: 04-14-2023 End: 04-14-2023 ambulatory Shailesh Dunham Other [facility] Other Start: 04-14-2023 Encounter for other preprocedural examination Shailesh Dunham [facility] Start: 04-14-2023 Office outpatient vi sit 15 minutes Shailesh Dunham [facility] Start: 04-08-2023 End: 04-08-2023 ambulatory Shailesh Dunham Other [facility] Other Start: 04-08-2023 Telephone encounter Shailesh Dunham [facility] Start: 04-05-2023 End: 04-05-2023 ambulatory Shailesh Dunham Other [facility] Other Start: 04-05-2023 Telephone encounter Shailesh Dunham [facility] Start: 04-04-2023 End: 04-04-2023 ambulatory Raul Quan Other [facility] Other Start: 04-04-2023 Telephone encounter Raul Lawrencemary ann [facility] Start: 03-29-2023 End: 03-29-2023 ambulatory Shailesh Dunham Other [facility] Other Start: 03-29-2023 Transitional care ellen lomaxcaleb srvc 14 day discharge Shailesh Dunham [facility] Start: 03-25-2023 End: 03-25-2023 ambulatory Raul Lawrencemary ann Other [facility] Other Start: 03-25-2023 Telephone encounter Raul Quan [facility] Start: 03-24-2023 End: 03-25-2023 ambulatory Ivelisse Hassan Facility:[id number] Start: 01-13-2023 End: 01-14-2023 ambulatory Ivelisse Hassan Facility:[facility] Start: 01-13-2023 End: 01-13-2023 Patient encounter procedure Ivelisse Hassan [facility] Start: 11-10-2022 Office outpatient vi sit 25 minutes Raul Quan [facility] Start: 11-10-2022 End: 11-10-2022 ambulatory DO Shailesh Dunham Work Phone: [facility] Other Start: 11-10-2022 End: 11-10-2022 Patient encounter procedure DO Shailesh Dunham Work Phone: [facility] Start: 10-07-2022 End: 10-08-2022 ambulatory Ivelisse Hassan Facility:[facility] Start: 10-07-2022 End: 10-07-2022 Patient encounter procedure Ivelisse Hassan [facility] [place] Start: 08-04-2022 End: 08-04-2022 ambulatory Raul Quan Other [facility] Other Start: 08-04-2022 Postop follow up vis it related to original px Raul Quan [facility] Start: 07-28-2022 End: 07-29-2022 ambulatory Ivelisse M. Lucaleb Facility:[facility] Start: 07-14-2022 ambulatory Ivelisse M. Lue Facility:C [id number] Start: 07-09-2022 End: 07-09-2022 ambulatory Shailesh Dunham Other [facility] Other Start: 07-09-2022 Telephone encounter Shailesh Dunham [facility] Start: 07-08-2022 End: 07-08-2022 ambulatory Shailesh Ball Other [facility] Other Start: 07-08-2022 Telephone encounter Shailesh Dunham [facility] Start: 07-08-2022 End: 07-09-2022 Evaluation and management of inpatient Shailesh Ball Facility:[facility] Start: 07-08-2022 End: 07-09-2022 Evaluation and management of inpatient DO Shailesh Ball Work Phone: [facility] Work Phone: Start: 07-01-2022 End: 07-01-2022 ambulatory Shailesh Ball Facility:[facility] Start: 07-01-2022 End: 07-01-2022 ambulatory DO Shailesh Ball Work Phone: [facility] Work Phone: Start: 07-01-2022 End: 07-01-2022 Patient encounter procedure DO Shailesh Ball Work Phone: [facility]-Pre-Surgical Testing Work Phone: Start: 06-24-2022 End: 06-25-2022 ambulatory Ivelisse Hassan Facility: [place] Start: 06-24-2022 End: 06-24-2022 Patient encounter procedure Ivelisse Hassan [facility] [place] Start: 05-21-2022 End: 05-21-2022 ambulatory Shailesh Dunham Other [facility] Other Start: 05-21-2022 Patient encounter procedure Shailesh Dunham [facility] Start: 05-19-2022 End: 05-19-2022 ambulatory Tamar Perea Other [facility] Other Start: 05-19-2022 Follow-up encounter Tamar [facility] Start: 05-13-2022 End: 05-13-2022 ambulatory Raul Quan Other [facility] Other Start: 05-13-2022 Telephone encounter Raul Quan [facility] Start: 05-11-2022 End: 05-11-2022 ambulatory Shailesh Dunham Facility:[facility] Start: 05-11-2022 End: 05-11-2022 ambulatory DO Shailesh Dunham Work Phone: [facility] Work Phone: Start: 05-11-2022 End: 05-11-2022 Patient encounter procedure DO Shailesh Dunham Work Phone: [facility] [place] Work Phone: Start: 04-23-2022 End: 04-23-2022 ambulatory Raul Quan Other [facility] Other Start: 04-23-2022 Telephone encounter Raul Quan [facility] V[facility] Surgery Start: 04-15-2022 End: 04-15-2022 Lab Drop off Ivelisse Hassan [facility] Start: 04-15-2022 End: 04-15-2022 Patient encounter procedure Ivelisse Hassan [facility] Start: 04-14-2022 End: 04-14-2022 ambulatory Shailesh Dunham Other [facility] Other Start: 04-14-2022 Telephone encounter Shailesh Dunham [facility] Start: 03-10-2022 End: 03-10-2022 ambulatory Raul Quan Other [facility] Other Start: 03-10-2022 Office outpatient vi sit 25 minutes Raul Quan [facility] Start: 02-25-2022 End: 02-25-2022 Patient encounter procedure IVA Caleb ARASH [facility] Start: 02-18-2022 End: 02-18-2022 Patient encounter procedure IVA Ellis ARASH [facility] Start: 02-11-2022 End: 02-11-2022 Lab Drop off Ivelisse Hsasan [facility] Start: 02-11-2022 End: 02-11-2022 Patient encounter procedure Ivelisse Hassan [facility] Start: 02-10-2022 End: 02-11-2022 ambulatory IVELISSE HASSAN . Facility: Start: 02-07-2022 Encounter for other preprocedural examination DR RAUL QUAN [facility] Start: 02-07-2022 Encounter for preprocedural laboratory examination DR RAUL QUAN [facility] Start: 02-04-2022 End: 02-05-2022 Evaluation and management of inpatient Shailesh Enrico Facility:[facility] Start: 02-04-2022 End: 02-05-2022 Evaluation and management of inpatient DO Shailesh Dunham Work Phone: [facility] [place] [facility] Start: 02-02-2022 End: 02-03-[address] RAUL QUAN Facility:[facility] Start: 02-02-2022 End: 02-03-2022 Encounter for other preprocedural examination DR RAUL QUAN Facility:[facility] Start: 01-20-2022 Office outpatient vi sit 25 minutes Raul Quan [facility] Start: 01-20-2022 End: 01-20-2022 ambulatory DO Shailesh Dunham Work Phone: [facility] Other Start: 01-20-2022 End: 01-20-2022 Patient encounter procedure DO Shailesh Dunham Work Phone: [facility] Start: 01-05-2022 End: 01-05-2022 ambulatory Raul Quan Other [facility] Other Start: 01-05-2022 Office outpatient vi sit 25 minutes Raul Quan [facility] Start: 12-08-2021 End: 12-09-[address] SHAILESH DUNHAM Facility:[facility] Start: 12-02-2021 End: 12-02-[address] SHAILESH DUNHAM Facility:[facility] Start: 11-24-2021 End: 11-24-2021 ambulatory Tamar Perea Other [facility] Other Start: 11-24-2021 Patient encounter procedure Tamar Perea [facility] Surgery Start: 11-11-2021 End: 11-11-[address] SHAILESH DUNHAM Facility:[facility] Start: 10-26-2021 End: 10-26-[address] SHAILESH DUNHAM Facility:[facility] Start: 10-21-2021 Patient encounter procedure Shailesh Dunham Work Phone: [facility] [address] [place] Work Phone: Start: 10-16-2021 Telephone encounter Judah Vivas MD Work Phone: [facility] [facility] DO Work Phone: Start: 10-15-2021 End: 10-15-2021 Evaluation and management of inpatient DO Shailesh Dunham Work Phone: [facility] [place] [facility] Start: 10-13-2021 End: 10-13-2021 Patient encounter procedure DO Shailesh Dunham Work Phone: [facility]-Pre-Surgical Testing Start: 10-06-2021 End: 10-06-2021 Patient encounter procedure DO Shailesh Dunham Work Phone: [facility]-Pre-Surgical Testing Start: 09-30-2021 End: 09-30-2021 ambulatory Tamar Perea Other [facility] Other Start: 09-30-2021 Encounter for other preprocedural examination Tamar Perea [facility] Surgery Start: 09-30-2021 Follow-up encounter Tamar Livingston [facility] Start: 09-22-2021 End: 09-23-[address] SHAILESH DUNHAM Facility:[facility] Start: 09-18-2021 End: 09-18-2021 Patient encounter procedure DO Shailesh Dunham Work Phone: [facility] [place] Start: 09-15-2021 End: 09-15-2021 ambulatory Tamar Perea Other [facility] Other Start: 09-15-2021 Follow-up encounter Tamar Livingston [facility] Start: 08-27-2021 End: 08-27-2021 Patient encounter procedure DO Shailesh Dunham Work Phone: [facility] Start: 08-12-2021 End: 08-13-2021 ambulatory NONE LISTED REQUEST Facility: Start: 07-28-2021 End: 07-28-2021 ambulatory Raul Quan Other [facility] Other Start: 07-28-2021 Office outpatient ne w 45 minutes Raul Quan [facility] Surgery Start: 06-13-2020 End: 06-13-2020 Patient encounter procedure Lisandra Sher Work Phone: [facility] Work Phone: Patient encounter status Judah Harrington MD Work Phone: -[facility] DO Work Phone: Procedures Date Procedure Procedure Detail Performing Clinician Start: 11-10-2022 Doppler ultrasonography of bilateral carotid arteries DO Shailesh Dunham Work Phone: Start: 07-28-2022 Cystourethroscopy with dilation of urethral stricture Ivelisse Hassan Start: 07-08-2022 Antibody screen Shailesh Dunham Comment on above: Result Comment: PERFORMED BY: [address] [place] [address] PATHOLOGIST PRACTICAL NURSING [employer]AC[employer] ZENA CASTELLON M.D. Start: 07-08-2022 Insertion of carotid artery stent DO Ryder Dunham Work Phone: Start: 05-11-2022 Computed tomography angiography of abdominal and/or pelvic blood vessel DO Shailesh Dunham Work Phone: Start: 05-11-2022 CT angiography of head DO Shailesh Dunham Work Phone: Start: 05-11-2022 CT angiography of neck vessels DO Josué fischer [employer] Work Phone: Start: 02-10-2022 PSA screening IVELISSE HASSAN . Comment on above: Performed By: #### DATA1C #### [facility] [address] [place] [address] Dr. 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 Start: 02-04-2022 Endovascular repair of abdominal aortic aneurysm DO Shailesh Dunham Work Phone: Start: 01-20-2022 Doppler ultrasonography of bilateral carotid arteries DO Shailesh Dunham Work Phone: Start: 09-18-2021 Computed tomography angiography of abdominal and/or pelvic blood vessel DO Shailesh Dunham Work Phone: Start: 08-27-2021 US scan of aorta DO Shailesh Dunham Work Phone: Start: 08-27-2021 Doppler ultrasonography of bilateral carotid arteries DO Shailesh Dunham Work Phone: Start: 06-13-2020 Imm. administration [employer] Work Phone: Start: 06-13-2020 SARS-CoV-2 vaccine, 0.5ml [employer] Work Phone: Start: 10-18-2019 Transurethral prostatectomy Ivelisse Lue Start: 04-06-2019 Cystoscope, device (physical object) Ivelisse Lue Start: 10-06-2016 Colonoscopy Ivelisse Lue Comment on above: 2010 Arthroscopy of knee Ivelisse Yenni e Catheterization of left heart Ivelisse Lue Esophagogastroduodenoscopy K athy Lue Plan of Treatment Date Care Activity Detail Author Start: 07-09-2022 [facility] Start: 07-08-2022 Hospital admission [facility] Start: 07-08-2022 Patient referral to dietitian [facility] Start: 02-05-2022 [facility] Start: 02-04-2022 [facility] Start: 02-04-2022 Hospital admission [facility] Start: 10-21-2021 STRESS NUC, Provider: SAL ZUNIGA NUCLEAR Sherrill,[id number], Status: Pen, Time: 7:30 AM STRESS NUC, Provider: SAL ZUNIGA NUCLEAR Sherrill,[id number], Status: Pen, Time: 7:30 AM [facility] DO Work Phone: Start: 10-15-2021 [facility] Work Phone: Start: 10-15-2021 OR Percutaneous EVAR AAA (Not Applicable) OR Percutaneous EVAR AAA (Not Applicable) [facility] Start: 10-15-2021 End: 10-15-2021 Evaluation and management of inpatient AAA (abdominal aortic aneurysm) [facility]-[address] [place] [address] Surgical Start: 10-13-2021 End: 10-13-2021 Patient encounter procedure Departed Clinical [facility] Testing Patient Education [facility] Work Phone: Patient referral [facility] Work Phone: Immunizations Immunization Date Immunization Notes Care Provider David holloway 06-13-2020 [employer]ney COVID 19 Vaccine [facility] Comment on above: Note: Patient tolera shyann well. No signs or symptoms of adverse reactions. Patient waited a minimum of 15 minutes. NEGATED: Highlighted row has not occurred!01-13-2023 influenza virus vaccine, unspecified formulation Ivelisse Hassan [facility] Payers Date Payer Category Payer Unknown [id number] 1959 Self-pay [id number] 1959 Unknown [id number] 1959 Unknown [id number] 1959 Unknown [id number] 1942 Unknown [id number] 2.16.84 [id number] 1942 Unknown [id number] 2.16.84 [id number] 1942 Unknown [id number] 2.16.84 [id number] 1942 Unknown [id number] 2.16.84 [id number] 1942 Unknown [id number] 2.16.84 [id number] 1942 Unknown [id number] 2.16.84 [id number] 1942 Unknown [id number] 2.16.84 [id number] 1942 Unknown [id number] 2.16.8 [id number] 1942 Unknown [id number] 2.16.8 [id number] 1942 Unknown [id number] 2.16.8 [id number] 1942 Unknown [id number] 2.16.8 [id number] 1942 Unknown [id number] 2.16.8 [id number] Self-pay Self Pay [id number] Unknown Unknown [employer] [id number] Unknown [id number] 2.16.84 [id number] Social History Date Type Detail Facility Tobacco smoking status Unknown i f ever smoked [facility] Work Phone: Start: 03-08-1955 End: 03-08-1996 Sex Assigned At [facility] Start: 10-15-2021 End: 10-07-2022 Tobacco smoking status NHIS Ex-smoker (finding) [facility] Start: 1940 Sex Assigned At Male F [facility] Tobacco smoking status Never [facility] Medical Equipment Procedure Code Equipment Code Equipment Origin al Text Equipment Identifier Dates Transcarotid artery revascularization (TCAR) Bare-metal carotid artery stent ()[id number] FDA Start: 07-08-2022 Transcarotid artery revascularization (TCAR) Bare-metal carotid artery stent ()[id number] FDA Start: 07-08-2022 Percutaneous endovascular repair of abdominal aortic aneurysm (AAA) Abdominal aorta endovascular stent-graft ()[id number] FDA Start: 02-04-2022 Percutaneous endovascular repair of abdominal aortic aneurysm (AAA) Abdominal aorta endovascular stent-graft ()[id number] FDA Start: 02-04-2022 Percutaneous endovascular repair of abdominal aortic aneurysm (AAA) Abdominal aorta endovascular stent-graft ()[id number] FDA Start: 02-04-2022 Goals Date Patient Goal Desired Activity /State Functional Status Date Assessment Result Facility 01-13-2023 Functional Status N/A [facility] 10-07-2022 Functional Status N/A [facility] 07-09-2022 Functional status Patient is Pro gressing Toward Baseline [facility] Work Phone: 06-24-2022 Functional Status N/A [facility] 04-15-2022 Functional Status N/A [facility] 02-25-2022 Functional Status N/A [facility] 02-18-2022 Functional Status N/A [facility] 02-11-2022 Functional Status N/A [facility] 02-05-2022 Functional status Patient at Baseline [facility] Work Phone: 10-15-2021 Functional status Patient at Baseline [facility] Work Phone: Mental Status Date Assessment Result Facility 07-09-2022 Cognitive function Cognitive Sta tus Patient is Progressing Toward Baseline [facility] Work Phone: 02-05-2022 Cognitive function Cognitive Sta tus Patient at Baseline [facility] Work Phone: 10-15-2021 Cognitive function Cognitive Sta tus Patient at Baseline [facility] Work Phone: Clinical Notes 04-18-2020 to 04-14-2023 [...] this time and surgery could be scheduled. [facility] Other 02-07-2024 Evaluation note* Encounter Date Diagnosis Assessment Notes Treatment Notes Treatment Clinical Notes Apr, ASHD (arteriosclerotic heart disease) (ICD-10 [...] this time and surgery could be scheduled. Apr, Preop exam for internal medicine (ICD-10 - Z01.818) I have seen and examined Mr Baker for preoperative evaluation. He had experienced extreme elevation of his BP during his previous procedure. Since this episode, his medications have been adjusted, bringing his BP under adequate control to proceed with his next procedure. [facility] Other 02-01-2024 Evaluation note* Encounter Date Diagnosis Assessment Notes Treatment Notes Treatment Clinical Notes Apr, Primary hypertension (ICD-10 - I10) [facility] Other 01-29-2024 Evaluation note* Encounter Date Diagnosis Assessment Notes Treatment Notes Treatment Clinical Notes Mar, Primary hypertension (ICD-10 - I10) [facility] Other 01-28-2024 Evaluation note* Encounter Date Diagnosis Assessment Notes Treatment Notes Treatment Clinical Notes Mar, Primary hypertension (ICD-10 - I10) [facility] Other 01-22-2024 Evaluation note* Encounter Date Diagnosis [...] resolved INstructed on increasing fluids Restart ASA [facility] Other 11-08-2023 Hospital Discharge instructions Patient Education [...] urethra. Follow these instructions at home: Take cqpz-wfg-sfudead and prescription medicines only as told by [...] provider. Document Revised: 09/10/2021 Document Reviewed: 09/10/2021 new test company Patient Education 2022 [employer]. Follow Up Care 10/07/2022 09:26:45 With:Mo LEIJA, AKILAH Smith, URO Address: When: Unknown [facility] 09-05-2023 Evaluation note* Encounter Date Diagnosis [...] in the office with a CT scan. [facility] Other 08-02-2023 Hospital Discharge instructions Patient Education [...] urethra. Follow these instructions at home: Take krzl-lxz-ceuaoyd and prescription medicines only as told by [...] provider. Document Revised: 09/10/2021 Document Reviewed: 09/10/2021 new test company Patient Education 2022 [employer]. Follow Up Care 07/28/2022 10:29:31 With:Mo LEIJA, AKILAH Smith, URO Address: When:Within 3 Day(s) [facility] 05-30-2023 Evaluation note* Encounter Date Diagnosis [...] a couple of weeks. These have resolved. [facility] Other 05-04-2023 Discharge summary Author Raul Quan [facility] July 09, 2022 12:08pm Note Date/Time July 09, 2022 8:07am [facility] [address] [place] [address] Discharge Summary Signed Patient: Chico Baker MR#: [id number] : 1940 Acct:[id number] Age/Sex: 82 / M Adm Date: 3 Loc: Room: [address] [place] [address]: Raul Quan MD Copies to: [...] midline, neck is supple, no JVD. 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 He has a [...] <Electronically signed by MD Raul Quan> 07/09/22 6[address] [facility] Work Phone: 1(913) 761-716505-03-2023 History and physical note Author Raul Quan [facility] July 08, 2022 11:06am Note Date/Time July 08, 2022 11:06a m [facility] [address] [place] [address] Vascular Surgery H&P Signed Patient: Chico Baker MR#: [id number] : 1940 Acct:[id number] Age/Sex: 82 / M Adm Date: 3 Loc: Room: [address] [place] [address] Type: ADM IN Attending Dr: Raul Quan [...] signed by MD Raul Quan> 07/08/22 [address] [facility] Work Phone: 1(857) 944-508804-19-2023 Hospital Discharge instructions Patient Education 06/24/2022 09:42:41 [...] Follow these instructions at home: Medicines Take mmbx-nqb-wvgdagm and prescription medicines only as told by [...] or the blood stops without treatment. Take lqfd-ola-tqobfxh and prescription medicines only as told by your health care provider. Drink enough fluid to keep your urine pale yellow. This information is not intended to replace advice given to you by your health care provider. Make sure you discuss any questions you have with your health care provider. Document Revised: 10/23/2020 Document Reviewed: 10/23/2020 new test company Patient Education 2022 [employer]. 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 Walk daily Inspect feet daily for cuts [facility] Other 03-14-2023 Evaluation note* Encounter Date Diagnosis [...] left TCAR procedure once he returns from [place] at the end of June beginning of [...] agree with plan, and denies any questions. [facility] Other 03-08-2023 Evaluation note* Encounter Date Diagnosis Assessment Notes Treatment Notes Treatment Clinical Notes May, Carotid stenosis, bilateral (ICD-10 - I65.23) CTA: < 50% right, 80% left [facility] Other 03-08-2023 Evaluation note* Encounter Date Diagnosis Assessment Notes Treatment Notes Treatment Clinical Notes May, Carotid stenosis, bilateral (ICD-10 - I65.23) CTA: < 50% right, 70% left - 05/2022 [facility] Other 02-08-2023 Hospital Discharge instructions Patient Education [...] prostate. Follow these instructions at home: Take esch-uaj-zhcwvua and prescription medicines only as told by [...] 02/19/2001 Document Revised: 05/07/2018 Document Reviewed: 11/12/2016 new test company Patient Education 2020 [employer]. Follow Up Care 02/11/2022 10:55:52 With:Mo LEIJA, AKILAH Smith, URO Address: When: Unknown [facility] 02-07-[facility]23 Evaluation note* Encounter Date Diagnosis Assessment Notes Treatment Notes Treatment Clinical Notes Apr, Primary hypertension (ICD-10 - I10) [facility] Other 01-03-2023 Evaluation note* Encounter Date Diagnosis [...] to perform simultaneously to minimize contrast exposure. [facility] Other 12-21-2022 Hospital Discharge instructions Patient Education 02/25/2022 12:02:33 Rash, Adult, Rrrt-hp-Tixr Rash, Adult A rash is a change [...] with your condition: Medicine Take or apply xgph-vad-azsizbl and prescription medicines only as told by [...] the rash from spreading. Take or apply ijgk-ups-aopxumm and prescription medicines only as told by [...] 08/10/2008 Document Revised: 06/16/2019 Document Reviewed: 09/26/2018 new test company Patient Education 2020 [employer]. Follow Up Care 02/18/2022 14:33:21 With:Ivelisse Hassan Address:Unknown When: Unknown Comments:Appointment has already been scheduled [facility] 12-14-2022 Hospital Discharge instructions Patient Education [...] including vitamins, herbs, eye drops, creams, and vbyx-yxe-qoppxzm medicines. Any problems you or family members [...] provider tells you to take them. Taking yhqs-yle-eqzjzum medicines, vitamins, herbs, and supplements. Eating and [...] 02/22/2006 Document Revised: 06/14/2019 Document Reviewed: 11/23/2018 new test company Patient Education 2020 [employer]. Follow Up Care 02/17/2022 16:33:06 With:IVA ANTOINE PA-C, URL Address: [address] [place] [address] [phone] When:02/25/2022 [facility] 12-07-2022 Hospital Discharge instructions Patient Education [...] prostate. Follow these instructions at home: Take ujfi-svm-rllfudr and prescription medicines only as told by [...] 02/19/2001 Document Revised: 05/07/2018 Document Reviewed: 11/12/2016 new test company Patient Education 2019 [employer]. Follow Up Care 01/28/2021 10:15:04 With:Mo LEIJA, AKILAH Smith, URO Address: When:6 weeks [facility] 12[facility]-2022 Discharge summary Author Raul Quan [facility] February 05, 2022 10:08am Note Date/Time February 05, 2022 7 :52am [facility] [address] [place] [address] Discharge Summary Signed Patient: Chico Baker MR#: [id number] : 1940 Acct:[id number] Age/Sex: 81 / M Adm Date: 2 Loc: Room: [address] [place] [address]: Raul Quan MD Copies to: [...] % (Auto) 69.5, Lymph % (Auto) 14.4, [place] % (Auto) 14.8, Eos % (Auto) 0.7, Baso % (Auto) 0.6, Nucleat RBC Rel Count 0.1, Neut # (Auto) 7.1, Lymph # (Auto) 1.5, [place] # (Auto) 1.5 H, Eos # (Auto) 0.1, Baso # (Auto) 0.1 02/04/22 08:25: Corrected WBC 9.3, Uncorrected WBC Count 9.3, RBC 4.10, Hgb 12.4L, Hct 37.5 L, MCV 91.5, MCH 30.2, MCHC 33.0, RDW 13.7, Plt Count 198, MPV 8.5, Neut % (Auto) 70.1, Lymph % (Auto) 16.4, [place] % (Auto) 12.0, Eos % (Auto) 0.9, Baso % (Auto) 0.6, Nucleat RBC Rel Count 0.0, Neut # (Auto) 6.5, Lymph # (Auto) 1.5, [place] # (Auto) 1.1 H, Eos # (Auto) [...] signed by MD Raul Quan> 02/05/22 [address] [facility] Work Phone: 1(390) 234-709911-15-2022 Evaluation note* Encounter Date Diagnosis Assessment Notes [...] we will evaluate him for left TCAR. [facility] Other 10-31-2022 Evaluation note* Encounter Date Diagnosis [...] complete and CT confirms candidacy for TCAR [facility] Other 09-19-2022 Evaluation note* Encounter Date Diagnosis Assessment Notes Treatment Notes Treatment Clinical Notes Nov, AAA (abdominal aortic aneurysm) without rupture (ICD-10 - I71.4) This patient is still recovering from his recent orthopedic procedures. He continues with physical therapy and although he is getting stronger, he remains quite fatigued and weak yet. He has an upcoming appointment with his sequins slinger for preoperative risk assessment and stratification this next week. We will give him a few more weeks of physical therapy and have him back in a month or so to reschedule his AAA. He did tell me that he had some abdominal pain while in the [facility] facility and was taken to the [facility] where a CT of the abdomen was obtained. We will get these studies pushed over for review and comparison. He denies any abdominal pain today and tells me his appetite is pretty good. He knows to call us in the meantime with any issues. [facility] Other 07-26-2022 Evaluation note* Encounter Date Diagnosis [...] agrees with this plan, denies any questions. [facility] Other 07-11-2022 Evaluation note* Encounter Date Diagnosis [...] agrees with this plan, and denies questions. [facility] Other 07-11-2022 Evaluation note* Encounter Date Diagnosis [...] agrees with this plan, and denies questions. [facility] Other 05-23-2022 Evaluation note* Encounter Date Diagnosis [...] returns we will get baseline ankle-brachial indices. [facility] Other 10-06-2021 NoteHNO ID: [id number] Author: Power Catherine MD Service: ? Author Type: Physician Type: Progress Notes Filed: 12/11/2020 11:17 AM Note Text: [facility] OUTPATIENT VISIT DATE December 11, 2020 OUTPATIENT VISIT TYPE EST PRIMARY CARE PHYSICIAN: Shailesh Dunham ([facility]) [address] [place] [address] REFERRING PHYSICIAN Power Catherine [address] [facility] [address] CHIEF COMPLAINT: Patient presents with: Established Patient [...] up. Continue statin therapy. ? Power Catherine, [facility]02-11-2021 NotePatient Outreach (COVAMN) SAMUELCHICO ([id number]) 1940 M Date Time Provider Department 04/18/20 KIMBERLEY REHMAN During your visit today, we recorded the following information about you: Allergies As of Date: 04/18/2020 Noted Allergy Reaction SHALINI INHIBITORS 05/09/2015 16 - Unknown GADOLINIUM-CONTAINING CONTRAST ME*05/09/2015 16 - Unknown TETANUS VACCINES AND TOXOID 05/16/2015 16 - Unknown Date Reviewed: 10/18/2017 Reviewed by: Power Catherine - Fully Assessed Order(s):SARS-COVID VACCINE 1ST DOSE APPT [[id number]] Order #: [id number] FUTURE Prescriptions as of 04/18/2020 Sig: ASPIRIN 81 MG TABLET,DELAYED * Take 81 mg by mouth once justice* ISOSORBIDE MONONITRATE ER 30 * Take 30 mg by mouth once justice* CARVEDILOL 12.5 MG TABLET Take 12.5 mg by mouth twice d* DOXAZOSIN 4 MG TABLET Take 4 mg by mouth daily at b* Problem List As Of Date: 04/18/2020 (None) Encounter Status:Closed by KeyMeISIDORO on 04/22/20[facility] Evaluation + Plan note Future Appointments Appointment Date:04/15/2022 08:45:00 AM Scheduled Provider:Ivelisse Hassan MD Location:[facility] Appointment Type:URO Office Visit [facility] evaluation + Plan note Future Appointments Appointment Date:04/15/2022 08:45:00 AM Scheduled Provider:Ivelisse Hassan MD Location:[facility] Appointment Type:URO Office Visit Diagnostic Tests Pending * [facility]ments Appointment Date:02/25/2022 11:00:00 AM Scheduled Provider:IVA ANTOINE PA-C Location:[facility] Appointment Type:URO Office Visit Appointment Date:04/15/2022 08:45:00 AM Scheduled Provider:Ivelisse Hassan MD Location:[facility] Appointment Type:URO Office Visit [facility] evaluation + Plan note Future Appointments Appointment Date:06/24/2022 09:30:00 AM Scheduled Provider:Ivelisse Hassan MD Location:[facility] Appointment Type:URO Office Visit [facility] evaluation + Plan note Future Appointments Appointment Date:01/13/2023 09:00:00 AM Scheduled Provider:Ivelisse Hassan MD Location:[facility] Appointment Type:URO Office Visit [facility] evaluation note* Diagnosis Onset Date Resolution Status AAA (abdominal aortic aneurysm) acute [facility] Work Phone: evalurndqv noteNo assessment information available [facility] Work Phone: evaluation noteNo InformationNort [employer] Other evaluation note* Diagnosis Onset Date Resolution Status Left carotid stenosis acute [facility] Work Phone: Hisqzfd general Narrative - Reported* Type Description Date Medical History hypercholesterolemia Medical History abdominal aortic aneurysm Medical History Carotid stenosis Medical History PAD Surgical History TURP Surgical History knee arthroscopy LEFT Surgical History Vein stripping Hospitalization History See Above [facility] Other Hisvqlp general Narrative - Reported* Type Description Date Medical History hypercholesterolemia Medical History abdominal aortic aneurysm Medical History Carotid stenosis Medical History PAD Surgical History TURP Surgical History knee arthroscopy LEFT Surgical History Vein stripping Surgical History RT FEMUR FX WITH ARABELLA PLACEMENT Hospitalization History See Above [facility] Other Hisjwbh general Narrative - Reported* Type Description Date Medical History hypercholesterolemia Medical History abdominal aortic aneurysm Medical History Carotid stenosis Medical History PAD Medical History [ ] Surgical History TURP Surgical History knee arthroscopy LEFT Surgical History Vein stripping Surgical History RT FEMUR FX WITH ARABELLA PLACEMENT Surgical History EVAR 02/04/2022 Surgical History [ ] Hospitalization History See Above [facility] Other Hiscidw general Narrative - Reported* Type Description Date [...] History COLONOSCOPY 2019 Hospitalization History See Above [facility] Other Hiseavi general Narrative - Reported* Type Description Date [...] Left TCAR 07/2022 Hospitalization History See Above [facility] Other History general Narrative - Reported* Type [...] Left TCAR 07/2022 Hospitalization History See Above [facility] Other History general Narrative - Reported* Type [...] left ESWL 03/2023 Hospitalization History See Above [facility] Other Hospital course Narrative No data available for this section [facility] Discharge instructions No data available for this section [facility] Author [facility]ul [facility] October 15, 2021 4:31pm Note Date/Time October 15, 2021 4: 31pm [facility] [address] [place] [address] Vascular Surgery Progress Note Signed Patient: Chico Baker MR#: [id number] : 1940 Acct:[id number] Age/Sex: 81 / M Adm Date: 2 Loc: 4N Room: [address] [place] [address] Type: DIS IN Attending Dr: Raul Quan [...] proceed with evaluation here. I will contact [facility] to performoutpatient cardiac evaluation and then he will be rescheduled when he is cleared. Code(s): I71.4 - Abdominal aortic aneurysm, without rupture Status: Acute Documented By: Raul Quan MD 10/15/21 162 9 Signed By: <Electronically signed by MD Raul Quan> 10/15/21 1631 [facility] Work Phone: Progress note Author Pb [facility] October 16, 2021 5:41am Note Date/Time October 16, 2021 5: 41am [facility] [address] [place] [address] Anesthesia Progress Note Signed Patient: Chico Baker MR#: [id number] : 1940 Acct:[id number] Age/Sex: 81 / M Adm Date: 2 Loc: 4N Room: [address] [place] [address] Type: DIS IN Attending Dr: Raul Quan MD Copies to: ~ Anesthesia Progress Note Narrative Narrative: Patient for EVAR today for 5+ centimeter infrarenal AAA. Past medical history hypertension, moderate aortic stenosis, and coronary artery disease. Review of medical records and discussion with indicates patient had stress test 2009 positive for infarct and ischemia at which time he was referred to [facility] and had cardiac cath. Medical management was apparently chosen. No interval events,testing, or intervention. Patient has been asymptomatic but sedentary and poor historian. Advised patient and family to see sequins slinger for consideration of preop stress testing. Discussed with surgeon Documented By: Pb Zurita MD 10/16/21 0535 Signed By: <Electronically signed by Pb Zurita MD> 10/16/21 0541 [facility] Work Phone: Progress note No data available for this section [facility] Reason for Referral No Reason for [...] section and content) DATE CREATED AUTHOR 04/02/2021 [facility] DATE CREATED AUTHOR AUTHOR'S ORGANIZ ATION 10/28/2021 [facility] DATE CREATED AUTHOR AUTHOR'S ORGANIZ ATION 04/14/2022 [facility] DATE CREATED AUTHOR AUTHOR'S ORGANIZ ATION 11/11/2022 [facility] DATE CREATED AUTHOR AUTHOR'S ORGANIZ ATION 04/25/2023 [facility] REASON FOR VISIT (unrecogniz ed section and content) REF BY DR DUNHAM FOR AAA, PAD AND CAROTID STENOSIS, Needs a new vascular surgeon7 WK FOLLOW UP; SHYANNE'S, ABDOMINAL, CAROTID WK FOLLOW UP; SHYANNE'S, ABDOMINAL, CAROTID 08/27/21FOLLOW UP AFTER CTA [facility] 09/18/21-AAAAAA see pt post femur [...] left TCARNo InformationTBH follow upNo InformationNo InformationBP readings/concern1 week1 weekBP reading Care Teams (unrecognized sec tion and [...] BE BASED ON THE PRIMARY CLINICAL RECORDS. [employer] [facility]. provides no warranty or guarantee of the accuracy or completeness of information in this document.
[2023-04-28] MEDS: LACTATED RINGER'S SOLUTION 1,000 ML 50 ML IV (11:51)
[2023-04-28] MEDS: CEFAZOLIN SODIUM/DEXTROSE,ISO 2 GM/50 ML PIGGYBACK IV (13:03)
--- NOTE | 2023-04-28 13:49 | P.URON_ITS ---
Urology Surgery Operative Note Operative Note Procedure Date: 04/28/23 Time Out Performed: yes Pre-op Diagnosis: Left kidney stone Post-op Diagnosis: same as pre-op Procedures performed: Left extracorporeal shock wave lithotripsy (second stage) Anesthesia: General-LMA Primary Surgeon: Ivelisse Hassan Complications: none Estimated blood loss (mL): 0 Findings: Radiopaque 7 mm left lower pole stone seen to fragment with 3000 shocks. Indwelling left ureteral stent in appropriate position. Smaller ~ 3-4 mm upper-mid pole stone initially visible no longer seen at end of case. Specimens: none Indications for Procedures: 82 year old male patient was evaluated and deemed a candidate for second stage left extracorporeal shock wave lithotripsy for large stone burden ~ 2 cm s/p L ESWL, cystoscopy with left stent on 03/24/23. Follow up KUB showed residual 7 mm left stone burden, with smaller non-obstructing stones. Delay in care due to patient needing control of his hypertension and his uncertainty to proceed with second stage treatment. Risks were discussed to include but not limited to bleeding, pain, infection, damage to surrounding structures, inability to treat the stone/place stent, residual fragments, obstruction and need for additional procedures. The patient understands the stent is not permanent and needs to be removed or exchanged within 3 months to prevent encrustation, infection, inv asive procedures and/or permanent renal damage. Detailed description of Procedure: After informed consent was obtained, the patient was brought to the operating room and placed on the lithotripsy bed in supine position. Sequential compression devices were placed on bilateral lower extremities. The patient received the appropriate dose of preoperative IV antibiotics and general anesthesia LMA was induced. An operative time out was performed confirming the patient's identity, procedure, laterality and safety checks. The patient was positioned supine with the appropriate pressure points padded, prepped, and draped in the usual fashion for this procedure. The patient was positioned with the Siemens Modularis Lithostar lithotripter head on the left flank. The stone was triangulated using fluoroscopy. A total of 3000 shocks were provided and the stone was seen to fragment well. The patient tolerated the procedure well without complication. The patient was awakened from anesthesia and sent to the PACU in stable condition. Plan: Discharge home with strainer, tamsulosin. Obtain KUB in 1 week to determine cysto/stent removal in office if minimal fragments remain vs need for left ureteroscopy, laser litho/stone extraction, stent removal vs exchange. Pt understands availability limited due to my leave and schedule of my partners. He understands the stent needs to be removed by 06/23/23 to prevent stent complications. Increased fluid intake was again discussed. Other Provider present: No Post Operative care instructions: see discharge instructions
[2023-04-28] MEDS: LACTATED RINGER'S SOLUTION 1,000 ML 75 ML IV (14:31)
== END 2023-04-28 14:55 | disposition home or self-care (01) ==
PROVIDERS: PCP Internal Medicine; Visit Provider Urology
PROC: (CPT 50590; principal; 2023-04-28 12:30)
DX: N20.0 Calculus of kidney (principal); I10 Essential (primary) hypertension; I25.10 Atherosclerotic heart disease of native coronary artery without angina pectoris; Z87.891 Personal history of nicotine dependence; Z79.01 Long term (current) use of anticoagulants
CPT/HCPCS: 50590; 36415; J0690; J2371; J2405; J2704; J3010

== ENCOUNTER 2023-05-03 13:47 | Outpatient (OUT) | payer MEDICARE, OTHER, SELFPAY ==
--- NOTE | 2023-05-03 13:52 | XR_ITS ---
[address] [address] Patient Name: CHICO BAKER MRN: [id number] date: 1940 Sex: M Assigned Patient Location: [facility] Current Patient Location: Accession/Order Number: [id number] Exam Date: 05/03/2023 13:56 Report Date: 05/04/2023 07:46 At the request of: SHERMAN AGUILAR Procedure: XR abdomen 1V EXAMINATION: XR abdomen 1V HISTORY: Kidney Stones N20.0 COMPARISON: 04/27/2023 FINDINGS: KIDNEY/URETER - RIGHT: Nephrolithiasis the largest stone measures 1.2 cm mid to lower pole KIDNEY/URETER - LEFT: Left ureteral stent in normal position. Nephrolithiasis projects over the lower pole the largest measuring 7 mm in diameter PELVIS: No visible ureteral calcifications. Any visible calcifications favor phleboliths. BOWEL: No abnormal dilation or deviation. BONES: No acute abnormality. OTHER: Aortobiiliac endograft. Remote fixation of the right femur. No abnormal gaseous collections. XR/XR abdomen 1V IMPRESSION: Stable left ureteral stent Stable bilateral nephrolithiasis Electronically authenticated by: ROCIO RICARDO Date: 05/04/2023 07:46
== END 2023-05-03 13:48 | disposition home or self-care (01) ==
LOC: RAD 13:48
PROVIDERS: PCP Internal Medicine; Visit Provider Urology
DX: N20.0 Calculus of kidney (principal)
CPT/HCPCS: 74018

== ENCOUNTER 2023-07-02 09:24 | Outpatient (OUT) | payer MEDICARE, OTHER, SELFPAY ==
--- NOTE | 2023-07-02 10:00 | CA_ITS ---
Patient Name: CHICO BAKER MR#: [id number] : 1940 Exam Date: 07/02/2023 Ordering Doctor: DR Shailesh Vinson D.O. ECHOCARDIOGRAM REPORT PROCEDURE: CA ECHO DOPPLER COMPLETE INDICATIONS: Nonrheumatic aortic valve stenosis, hypertension COMPARISON: None. DESCRIPTION: COMPLETE ECHOCARDIOGRAM Real-time transthoracic echocardiography with 2D, M-mode, spectral and color flow Doppler performed. QUALITY: Technical quality was good. 66 , 140#, BSA 1.72 m2, BP 118/68 LEFT VENTRICLE: Normal chamber size. Mild concentric left ventricular hypertrophy. LV EF: Global left ventricular systolic function is normal; visually estimated ejection fraction is 55 to 60%. No significant wall motion abnormalities. DIASTOLIC: Unable to assess degree of diastolic dysfunction. ATRIAL SEPTUM: Visually appears intact. LEFT ATRIUM: Normal chamber size. RIGHT ATRIUM: Normal chamber size. RIGHT VENTRICLE: Normal chamber size. Normal right ventricular systolic function. TRICUSPID VALVE: Normal mobility and thickness. No stenosis with no regurgitation. Unable to assess right-sided pressures due to lack of measurable tricuspid regurgitation. MITRAL VALVE: Normal mobility and thickness. No evidence of mitral valve stenosis. There is no mitral annular calcification. Trivial mitral regurgitation. AORTIC VALVE: Normal trileaflet appearance. Severely calcified aortic valve. Moderately diminished mobility. Doppler velocity suggests mild aortic stenosis; however DVI of 0.21 consistent with severe aortic valve stenosis, ASHOK 1.0 cm2. No aortic regurgitation. AORTIC ROOT: Normal diameter and appearance. PULMONIC VALVE: Normal thickness and mobility. No stenosis. No regurgitation. PERICARDIUM: No evidence of pericardial effusion. IVC: Collapses with inspirations. CONCLUSION: 1. Global left ventricular systolic function is normal; visually estimated ejection fraction is 55 to 60% 2. Normal right ventricular size and systolic function 3. Mildly increased left ventricular wall thickness 4. Suspected paradoxical, low-flow, low gradient severe aortic stenosis (stage D3); recommend further investigations as clinically appropriate Adult Echocardiography Procedure Report Left Ventricle LVEDD (3.7 - 5.6 cm): 3.49 cm LVESD (2.2 - 4.0 cm): 2.74 cm LVIVS thickness (0.6 - 1.2 cm): 1.16 cm LVPW thickness (0.5 - 1.0 cm): 1.34 cm e': 0.08 m/s E - e': 8.51 LVOT Max Gradient: 1.39 mm[Hg] LVOT Area (cm2): 0.59 m/s Peak Velocity (LVOT): 0.59 m/s Mean Velocity (LVOT): 0.42 m/s LVOT Diameter 2.21 cm Left Atrium LA Volume Index (2D A2C): 34.70 ml/m2 Left Atrium Systolic Dimension: 4.15 cm Mitral Valve MV E to A Ratio: 0.89 Mitral Valve A-Wave Peak Velocity: 0.74 m/s Mitral Valve E-Wave Peak Velocity: 0.66 m/s Right Ventricle Aorta AO Root Diam: 3.19 cm Aortic Valve AoV Area (Peak Jose): 0.82 cm2, 0.88 cm2 AoV Area (VTI): 0.97 cm2, 1.04 cm2 Peak Velocity(Antegrade Flow): 2.56 m/s, 2.77 m/s Peak Gradient(Antegrade Flow): 26.12 mm[Hg], 30.69 mm[Hg] Mean Velocity(Antegrade Flow): 1.54 m/s, 1.86 m/s Mean Gradient(Antegrade Flow): 11.86 mm[Hg], 16.75 mm[Hg] Velocity Time Integral: 57.56 cm, 61.58 cm Tricuspid Valve Pulmonic Valve Mean Gradient: 3.23 mm[Hg] Mean Velocity: 0.84 m/s Peak Velocity: 1.32 m/s, 1.09 m/s Peak Gradient: 4.76 mm[Hg], 7.01 mm[Hg] Right Atrium Right Atrium Systolic Pressure: 34.70 ml, 34.70 ml Dictated by: Wesley Vega M.D. on 07/02/2023 at 16:26 Approved by: Wesley Vega M.D. on 07/02/2023 at 16:33
== END 2023-07-02 09:25 | disposition home or self-care (01) ==
LOC: US 09:25
PROVIDERS: PCP Internal Medicine; Visit Provider Internal Medicine
DX: K82.4 Cholesterolosis of gallbladder (principal); I35.0 Nonrheumatic aortic (valve) stenosis
CPT/HCPCS: 93306

== ENCOUNTER 2023-07-06 09:53 | Outpatient (OUT) | payer MEDICARE, OTHER, SELFPAY ==
--- NOTE | 2023-07-06 09:55 | US_ITS ---
The [address] [address] Patient Name: CHICO BAKER MRN: [id number] date: 1940 Sex: M Assigned Patient Location: US Current Patient Location: US Accession/Order Number: [id number] Exam Date: 07/06/2023 10:00 Report Date: 07/06/2023 10:54 At the request of: DESHAUN WESTON Procedure: US right upper quadrant EXAM: US right upper quadrant HISTORY: Polyp Of Gallbladder K82.4 COMPARISON: None. TECHNIQUE: Grayscale, color and Doppler FINDINGS: The liver is normal in size, contour and echotexture. Hepatopedal flow in the main portal vein measuring 20 cm/s. The gallbladder is normal in size. The wall measures 2.5 mm, normal. Negative sonographic Arredondo sign. Identified in the gallbladder is a hyperechogenic avascular 1.0 x 0.7 x 0.8 cm nonmobile lesion, with acoustic shadowing. Identified in the fundus is a 1.5 x 1.7 x 2.6 cm heterogeneous soft tissue echogenicity mass with color flow and areas of hyper echogenicity which could be calcifications. The common bile duct measures 3.3 mm, normal The visualized pancreas is normal. No ascites. US/US right upper quadrant IMPRESSION: 2.6 cm vascular mass in the gallbladder fundus. This is indeterminate, malignancy is included within the differential diagnosis Cholelithiasis without acute cholecystitis Electronically authenticated by: ROCIO RICARDO Date: 07/06/2023 10:54
== END 2023-07-06 09:54 | disposition home or self-care (01) ==
LOC: US 09:53
PROVIDERS: PCP Internal Medicine; Visit Provider Internal Medicine
DX: K82.4 Cholesterolosis of gallbladder (principal); K80.20 Calculus of gallbladder without cholecystitis without obstruction
CPT/HCPCS: 76705

== ENCOUNTER 2023-09-22 20:33 | Emergency (ER) | payer MEDICARE, OTHER, SELFPAY ==
--- OUTSIDE RECORDS SUMMARY | 2023-09-22 20:45 | XMS_ITS | CCD ---
Author Organization [facility] Inform ion [facility] Care Team Providers Care Ply Splicer Name Role Phone Orlando Dotson Fernando Unavailable Raul Quan Unavailable Tamar Perea Unavailable Shailesh Dunham Unavailable DO Shailesh Dunham Primary Care Provider [phone] MD Raul Quan Attending Provider KB Perea Attending Provider MD Raul Quan Admit Provider [phone] DO Shailesh Dunham Primary Care Provider KB Perea Attending Provider MD Raul Quan Admit Provider [phone] MD Raul Quan Attending Provider SHAILESH DUNHAM Primary Care Physician [phone] [place] .IVELISSE Admitting Unavailable LUCaleb .IVELISSE Attending [...] [employer] Unavailable TAYO CASTILLO Consulting Unavailable ENRICO, DR MEADE Primary Care Unavailable GORAN, GILES Admitting Unavailable GORAN, GILES Attending Unavailable NY, CHARLES Consulting Unavailable GORAN, GILES Consulting Unavailable SCHREIBMAN, DEL Consulting Unavailable PELZ, JANE Consulting Unavailable STRAWSER, NICOLE Consulting Unavailable REQUEST, NONE LISTED Admitting Unavaila ble REQUEST, NONE LISTED Attending Unavaila ble ENRICO, DR MEADE Primary Care Unavailable REQUEST, NONE LISTED Consulting Unavaila ble Shailesh Dunham Unavailable DO Shailesh Dunham Primary Care Provider MD Raul Quan Attending Provider [phone] DO Shailesh Dunham Primary Care Provider MD Raul Quan Attending Provider [phone] MD Raul Quan Admit Provider DO Shailesh Dunham Primary Care Provider [phone] MD Raul Quan Attending Provider Lue, Ivelisse MSilvestre Attending Unavailable Lue, Ivelisse MSilvestre Attending Unavailable Lue, Ivelisse MSilvestre Attending Unavailable Lue, Ivelisse MSilvestre Attending Unavailable Lue, Ivelisse MSilvestre Attending Unavailable Lue, Ivelisse MSilvestre Attending Unavailable Lue, Ivelisse MSilvestre Attending Unavailable Lue, Ivelisse M. Admitting Unavailable Lue, Ivelisse MSilvestre Attending Unavailable Lue, Ivelisse M. Referring Unavailable Lue, Ivelisse MSilvestre Attending Unavailable Lue, Ivelisse M. Attending Unavailable DO Shailesh Dunham Primary Care Provider MD Raul Quan Attending Provider CLIFTON CORREA Attending Unavailable SHAILESH DUNHAM Referring Unavailable MD Sheri Christiansen Attending Provider Shailesh Dunham Primary Care Unavailable Sheri Christiansen Admitting Unavailable Sheri Christiansen Attending Unavailable Shailesh Dunham Primary Care Unavailable Raul Quan Admitting Unavailable Raul Quan Attending Unavailable Shailesh Dunham Primary Care Unavailable Raul Quan Admitting Unavailable Raul Quan Attending Unavailable Shailesh Dunham Primary Care Unavailable Sheri Christiansen Admitting Unavailable Sheri Christiansen Attending Unavailable YSABEL JOHN Referring Unavailable CHUN BRYANT Referring Unavailable YSABEL JOHN Referring Unavailable CHUN BRYANT Referring Unavailable CHUN BRYANT Attending Unavailable YSABEL JOHN Attending Unavailable Allergies Allergy Classification Reported Allergen(s) Allergy Type Date of Onset Reaction(s) Facility Angiotensin Converting Enzyme (SHALINI) Inhibitors (3 sources) Angiotensin Converting Enzyme (Shalini) Inhibitors; Translations: [SHALINI Inhibitors] Drug Allergy 08-27-19 24 [facility] Tetanus immune globulin (3 sources) Tetanus immune globulin; Translations: [tetanus immune globulin] Drug Allergy 08-27-[address] [facility] (5 sources) Angiotensin Converting Enzyme (Shalini) Inhibitors Drug allergy Unknown [facility] [employer] Other (6 sources) Tetanus vaccine; Translations: [tetanus toxoid] Drug allergy Unknown [facility] Repository (20 sources) Angiotensin Converting Enzyme (Shalini) Inhibitors; Translations: [Angiotensin-conv erting enzyme inhibitor agent (substance)] Allergy to substance 05-09-19 16 [facility], [facility] (8 sources) Contrast media Allergy to substance 10-07-19 22 [facility] (15 sources) Tetanus immune globulin; Translations: [TETANUS IMMUNE GLOBULIN] Drug Allergy 02-24-[address] [facility] (20 sources) Angiotensin-conve rting enzyme inhibitor agent Drug allergy Unknown [employer] Other (2 sources) Tetanus toxoid specific immunoglobulin E Drug allergy Unknown [employer] Other (12 sources) Contrast media; Translations: [Contrast Dye] Allergy to substance unknown [facility] (13 sources) Iodine; Translations: [iodine] Drug Allergy 10-27-19 22 Unknown (qualifier value) [facility] (11 sources) tetanus toxoid vaccine, inactivated; Translations: [tetanus toxoid] Drug Allergy Unknown (qualifier value) [facility] (1 source) Iodine Drug Allergy [facility] Repository (1 source) Iodine (And Iodine Containting Drugs) Drug allergy (disorder) [facility] Rep[facility] (1 source) Tetanus AND Diphtheria Tox,Adult Drug allergy (disorder) [facility] Rep[facility] (20 sources) Tetanus vaccine Drug allergy Unknown [employer] Other (13 sources) Iodinated Contrast Media; Translations: [Iodinated Contrast Media] Allergy to substance 10-27-[address] [facility] (9 sources) tetanus toxoid, adsorbed; Translations: [tetanus toxoid, adsorbed] Allergy to substance 04-26-[address] [facility] (1 source) GADOLINIUM-CONTAI MAYA CONTRAST MEDIA; Translations: [GADOLINIUM-CONTA INING CONTRAST MEDIA] Propensity to adverse reactions to drug (disorder) 05-09-19 16 [facility] Repository (1 source) TETANUS AND DIPHTHERIA TOXOIDS; Translations: [TETANUS AND DIPHTHERIA TOXOIDS] Propensity to adverse reactions to drug (disorder) 10-27-19 22 [facility] Repository (1 source) TETANUS VACCINES AND TOXOID; Translations: [TETANUS VACCINES AND TOXOID] Propensity to adverse reactions to drug (disorder) 05-16-19 16 [facility] Repository (1 source) ALLERGIES NOT ON FILE; Translations: [ALLERGIES NOT ON FILE] Propensity to adverse reactions (disorder) [facility] Repository Medications Current Medications Medication Drug Class(es) Dates [...] MG PO Daily February 23, 2019 1:00am Jessie 26th, 2023 9:43am take 1 tablet by freddy th once daily Aspirin 81 81 MG 1 tablet Orally Once a day Active cholecalciferol 0.025 mg oral capsule (20 sources) Vitamin D Start: 07-01-2022 take 1 [...] 1 tablet Orally Once a day Active Enoxaparin (2 sources) Low Molecular Weight Heparin Enoxaparin Sodium until 11/27/21 Active 24 hr isosorbide mononitrate 30 mg extended release oral tablet (20 sources) Nitrate Vasodilator Start: take 30 mg by mouth once daily Isosorbide Mononitrate Active 30 MG PO Daily July 20, 2023 10:18am Start: 04-26-2023 End: 07-20-2023 take 1 tablet by mouth once daily Isosorbide Mononitrate Discontinued 0 .ROUTE .COMPLEX June 28, 2023 1:30pm July 20, 2023 10:19am TAKE 1 TABLET BY MOUTH EVERY DAY Start: 02-23-2019 End: 04-26-2023 take 30 mg by mouth once daily Isosorbide Mononitrate Discontinued 30 MG PO Daily February 23, 2019 1:00am April 26, 2023 6:54pm Isosorbide [place] itrate Active isosorbide dinitrate 30 mg oral tablet (11 sources) Nitrate Vasodilator Start: 03-28-2019 take 30 mg by mouth once daily isosorbide dinitrate 30 mg, Oral, Daily, Refills(s) 0 Start Date: 03/28/19 Status: Ordered losartan potassium 50 mg oral tablet (20 sources) Angiotensin 2 Receptor Patel Start: 09-03-2023 take 50 mg by mouth once daily Losartan Active 50 MG PO Daily September 03, 2023 8:47am Start: 07-26-2023 End: 09-03-2023 take 1 tablet by mouth twice daily Losartan Discontinued 0 .ROUTE .COMPLEX 180 July 26, 2023 12:44pm September 03, 2023 8:47am TAKE 1 TABLET BY MOUTH TWICE A DAY FOR 30 DAYS Start: 07-26-2023 take 1 tablet by freddy th twice daily Losartan Active 0 .ROUTE .COMPLEX 180 July 26, 2023 12:44pm TAKE 1 TABLET BY MOUTH TWICE A DAY FOR 30 DAYS Start: 07-05-2023 End: 07-26-2023 take 50 mg by mouth once daily at bedtime Losartan Discontinued 50 MG PO Daily at bedtime July 05, 2023 6:25pm July 26, 2023 12:44pm Start: 06-22-2023 End: 06-22-2023 take 50 mg by mouth once daily Losartan Discontinued 5 0 MG PO Daily 90 June 22, 2023 10:13am June 22, 2023 12:15pm Start: 04-26-2023 End: 04-26-2023 take 50 mg by mouth twice daily Losartan Discontinued 50 MG PO Twice daily April 26, 2023 1:54pm April 26, 2023 1:56pm Start: 04-26-2023 End: 07-05-2023 take 50 mg by mouth twice daily Losartan Discontinued 50 MG PO Twice daily June 22, 2023 12:14pm July 05, 2023 6:26pm Start: 02-04-2022 End: 04-26-2023 take 25 mg by mouth once daily Losartan Discontinued 2 5 MG PO Daily February 04, 2022 1:00am April 26, 2023 11:10am Losartan Potassi um 100 MG 1/2 Orally twice daily Active take 1 tablet by freddy th every twenty-four hours Losartan Potassium 100 MG 1 tablet Orally Once a day Active Losartan Potassi um Active 24 hr mirabegron 25 mg extended release oral tablet (4 sources) beta3-Adrenergic Agonist Start: 10-07-2022 take 1 tablet by mouth once daily Myrbetriq 25 mg oral tablet, extended release 25 mg = 1 tab(s), Oral, Daily, # 30 tab(s), Refills(s) 6, Pharmacy: [facility]/pharmacy #[id number], 169, cm, 10/07/22 8:54:00 EDT, Height/Length Dosing, 61.5, kg, 10/07/22 8:54:00 EDT, Weight Dosing Start Date: 10/07/22 Status: Ordered omeprazole 20 mg delayed release oral capsule (3 sources) Proton Pump Inhibitor Start: 08-27-2023 take 20 mg by mouth once daily Omeprazole Active 20 MG PO Daily August 27, 2023 12:00am pravastatin sodium 40 mg oral tablet (20 sources) HMG-CoA Reductase Inhibitor Start: 07-20-2023 take 40 mg by mouth once daily at bedtime Pravastatin Active 40 MG PO Daily at bedtime July 20, 2023 10:19am Start: 04-21-2023 End: 07-20-2023 take 1 tablet by mouth once daily in the evening Pravastatin Discontinued 0 .ROUTE .COMPLEX April 21, 2023 3:33pm July 20, 2023 10:19am TAKE 1 TABLET BY MOUTH EVERY DAY IN THE EVENING Start: 03-28-2019 End: 04-21-2023 take 40 mg by mouth once daily in the evening Pravastatin Discontinued 40 MG PO Every evening February 05, 2022 1:00am April 21, 2023 3:33pm Start: 02-23-2019 End: 02-05-2022 take 10 mg [...] for 30 day(s), 60 tab(s), Refill(s) 0, [id number], 169, cm, 02/11/22 8:44:00 EST, Height/Length Dosing, 71, kg, 02/11/22 8:44:00 EST, Weight Dosing Start Date: 02/11/22 Stop Date: 03/13/22 Status: Ordered Vitamin D3 (16 sources) Vitamin D3 Not-Taking Vitamin D3 Activ e Completed/Discontinued Medications Medication Drug Class(es) Dates Sig (Normalized) Sig (Original) ##### (11 sources) Start: 02-11-2022 take 1 capsule by mouth at mealtime ##### 60 EA, TAKE 1 CAPSULE BY MOUTH IN THE MORNING AND 1 IN THE EVENING WITH MEALS Start Date: 02/11/22 Status: Ordered amLODIPine 2.5 mg oral tablet (20 sources) Dihydropyridine Calcium Channel Patel Start: 06-22-2023 End: 06-29-2023 take 2.5 mg by mouth once daily Amlodipine Discontinued 2.5 MG PO Daily June 22, 2023 10:12am June 29, 2023 1:27pm Start: 04-26-2023 End: 06-22-2023 take 2.5 mg by mouth twice daily Amlodipine Discontinued 2.5 MG PO Twice daily April 26, 2023 1:00am June 22, 2023 10:15am Start: 04-05-2023 take 1 tablet by freddy th every twenty-four hours amLODIPine Besylate 2.5 MG 1 tablet Orally Once a day for 30 days Mar, Active Start: 04-05-2023 take 1 tablet by freddy th every twelve hours amLODIPine Besylate 2.5 MG 1 tablet Orally bid Mar, Active {1 (ascorbic acid 7540 MG / polyethylene glycol 3350 58664 MG / potassium chloride 1200 MG / sodium ascorbate 49350 MG / sodium chloride 3200 MG Powder for Oral Solution) / 1 (polyethylene glycol 3350 689876 MG / potassium chloride 1000 MG / [...] Phosphate Binder, Calcium Calcium Not-Taking Calcium Active calcium citrate 1040 mg oral tablet (20 sources) Start: 07-01-2022 End: 06-22-2023 take 600 mg by mouth twice daily Calcium Citrate Discontinued 600 MG PO Twice daily July 01, 2022 12:00am June 22, 2023 12:14pm Start: 02-11-2022 take 2 tablets by mo ut three times daily calcium (as calcium citrate) 200 mg oral tablet 180 EA, TAKE 2 TABLETS BY MOUTH 3 TIMES A DAY, Refills(s) 0 Start Date: 02/11/22 Status: Ordered carvedilol 25 mg oral tablet (20 sources) alpha-Adrenergic Patel, beta-Adrenergic Patel Start: 04-26-2023 End: 06-22-2023 take 25 mg by mouth twice daily Carvedilol Discontinued 25 MG PO Twice daily 60 30 April 26, 2023 1:56pm June 22, 2023 10:15am Start: 04-14-2022 End: 04-26-2023 take 3.125 mg by mouth twice daily at mealtime Carvedilol Discontinued 3.125 MG PO Twice daily July 01, 2022 12:00am April 26, 2023 1:02pm must administer with a meal/food Start: 02-23-2019 End: 07-01-2022 take 12.5 mg by mouth twice daily Carvedilol Discontinued 12.5 MG PO Twice daily February 23, 2019 1:00am July 01, 2022 9:44am take 1 tablet by freddy th every twelve hours Carvedilol 25 MG 1 tablet with food Orally Twice a day Active Carvedilol Activ e clopidogrel 75 mg oral tablet (19 sources) [id number] Platelet Inhibitor Start: 09-16-2021 End: 04-26-2023 take 75 mg by mouth once daily in the morning Clopidogrel Discontinued 75 MG PO Every morning July 01, 2022 12:00am April 26, 2023 1:04pm diphenhydrAMINE hydrochloride 50 mg oral capsule (16 sources) Histamine-1 Receptor Antagonist Start: 06-15-2023 End: 06-22-2023 Diphenhydramine Hcl Discontinued 50 MG PO Once 1 June 15, 2023 12:00am June 22, 2023 12:16pm Orally 60 minutes prior to test Start: 05-27-2023 End: 06-22-2023 Diphenhydramine Hcl (Benadry l Allergy) 50 mg tablet Discontinued 50 MG PO Once 1 May 27, 2023 12:00am June 22, 2023 12:14pm Orally 60 minutes prior to test doxazosin 4 mg oral tablet (16 sources) alpha-Adrenergic Patel Start: 02-23-2019 End: 10-06-2021 take 4 mg by mouth once daily Doxazosin Discontinued 4 MG PO Daily February 23, 2019 1:00am October 06, 2021 10:38am oxybutynin chloride 5 mg oral tablet (15 sources) Cholinergic Muscarinic Antagonist Start: 04-26-2023 End: 06-22-2023 take 5 mg by mouth every eight hours Oxybutynin Chloride Discontinued 5 MG PO Every 8 hours April 26, 2023 1:00am June 22, 2023 12:15pm [facility] hours as needed oxyBUTYnin Chloride 5 MG 1 tablet Orally every 8 hours as needed Active predniSONE 50 mg oral tablet (16 sources) Start: 06-15-2023 End: 06-22-2023 Prednisone Discontinued 50 M G PO .COMPLEX 3 June 15, 2023 12:00am June 22, 2023 12:15pm 50 mg orally Three (3) doses; 6 hours apart with LAST dose ending 30 minutes before test Start: 05-27-2023 End: 06-22-2023 Prednisone Discontinued 50 M G PO Once May 27, 2023 12:00am June 22, 2023 12:15pm Orally for (3) THREE DOSES; 6 hours apart with the last dose 30 minutes before test. tamsulosin hydrochloride 0.4 mg oral capsule (15 sources) alpha-Adrenergic Patel Start: 04-26-2023 End: 06-22-2023 take 0.4 mg by mouth once daily Tamsulosin Discontinued 0.4 MG PO Daily April 26, 2023 1:00am June 22, 2023 12:15pm take 1 capsule by [facility] every twenty-four hours Tamsulosin HCl 0.4 MG 1 capsule Orally Once a day Active Problems Active Problems Problem Classification Problem Date Documented Da te Episodic/Chronic Allergic reactions (8 sources) Allergy to contrast media; Translations: [Radiographic dye allergy status] 05-27-2023 Episodic Aortic; peripheral; and visceral artery aneurysms (20 sources) Abdominal aortic aneurysm without rupture; Translations: [Abdominal aortic aneurysm, without rupture] Onset: 07-28-2021 Resolved: 11-24-2021 Chronic Biliary tract disease (20 sources) Polyp of gallbladder; 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] Onset: 08-17-2023 06-22-2023 Episodic Calculus of urinary tract (20 sources) Kidney stone; Translations: [History of calculus of kidney] Onset: 04-15-2022 03-28-2019 Episodic Coronary atherosclerosis and other heart disease (20 sources) Coronary arteriosclerosis; Translations: [Atherosclerotic heart disease of [place] coronary artery without angina pectoris] Onset: 11-14-2021 03-28-2019 Chronic Deficiency and other anemia (18 sources) Anemia; Translations: [Anemia, unspecified] Episodic Diabetes mellitus without complication (20 sources) Impaired fasting glycemia; Translations: [Impaired fasting [...] non-rheumatic ; Translations: [Nonrheumatic aortic (valve) stenosis] Onset: 08-31-2023 Chronic Hyperplasia of prostate (20 sources) Benign prostatic hypertrophy with outflow obstruction; Translations: [Benign prostatic hyperplasia with lower urinary tract symptoms] Onset: 02-10-2022 Chronic Immunizations and screening for infectious disease (1 source) Encounter for immunization; Translations: [Encounter For Immunization] Onset: 06-13-2020 Episodic Inflammatory conditions of male genital organs (10 sources) Prostatitis; Translations: [Inflammatory disease of prostate, unspecified] Onset: 02-11-2022 Episodic Neoplasms of unspecified nature or uncertain behavior (2 sources) Neoplasm of uncertain behavior of liver, gallbladder and bile ducts; 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, gallbladder and bile ducts] Onset: 08-19-2023 Episodic Nutritional deficiencies (20 sources) Vitamin D deficiency; Translations: [Vitamin D deficiency, unspecified] 04-26-2023 Chronic Occlusion or stenosis of precerebral arteries (20 sources) Carotid artery stenosis; Translations: [Occlusion and stenosis of unspecified carotid artery] Onset: 07-28-2021 Resolved: 09-15-2021 Chronic Other bone disease and musculoskeletal deformities (11 sources) Osteitis deformans 03-28-2019 Chronic Other bone disease and musculoskeletal deformities (18 sources) 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; 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] Chronic Other bone disease and musculoskeletal deformities (6 sources) Paget's disease of pelvis; 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] 06-22-2023 Chronic Other bone disease and musculoskeletal deformities (11 sources) Osteitis deformans of other bones; Translations: [Osteitis deformans without mention of bone tumor] 06-22-2023 Chronic Other diseases of bladder and urethra (7 sources) Male urethral stricture; Translations: [Unspecified urethral stricture, male, unspecified site] Onset: 10-06-2022 Episodic Other diseases of kidney and ureters (1 source) Urinary tract obstruction; Translations: [Other obstructive and reflux uropathy] Onset: 05-04-2023 Episodic Other gastrointestinal disorders (18 sources) Diarrhea; Translations: [Diarrhea, unspecified] Episodic Other injuries and conditions due to external causes (3 sources) Foreign body in bladder; Translations: [Foreign body in bladder, initial encounter] Onset: 05-04-2023 Episodic Other lower respiratory disease (18 sources) Dyspnea on exertion; Translations: [Other forms of dyspnea] Episodic Other male genital disorders (17 sources) Male erectile dysfunction, unspecified; Translations: [Erectile dysfunction] Onset: 02-11-2022 Chronic Other nutritional; endocrine; and metabolic disorders (18 sources) Abnormal weight loss; Translations: [Abnormal weight loss] Episodic Other screening for suspected conditions (not mental disorders or infectious disease) (16 sources) Computed tomography result abnormal; Translations: [Abnormal findings on diagnostic imaging of other specified body structures] 02-23-2019 Chronic Other screening for suspected conditions (not mental disorders or infectious disease) (2 sources) Encounter for screening for diseases of the blood and blood-forming organs and certain disorders involving the immune mechanism; Translations: [Encounter for screening for diseases of the blood and blood-forming organs and certain disorders involving the immune mechanism] Onset: 08-18-2023 Episodic Other skin disorders (4 sources) Eruption; Translations: [Rash and other nonspecific skin eruption] Onset: 02-18-2022 Episodic Other skin disorders (9 sources) Rash of genitalia 02-18-2022 Episodic Other skin disorders (18 sources) Vesicular eczema of hands and/or feet; Translations: [Dyshidrosis [pompholyx]] Episodic Peripheral and visceral atherosclerosis (20 sources) Peripheral vascular disease, unspecified; Translations: [Intermittent claudication of bilateral lower limbs co-occurrent and due to atherosclerosis] Onset: 07-28-2021 Resolved: 09-15-2021 Chronic Screening and history of mental health and substance abuse codes (12 sources) Ex-smoker; Translations: [Personal history of nicotine dependence] Onset: 11-14-2021 08-15-2019 Episodic Unclassified (11 sources) Asymptomatic microscopic hematuria 02-20-2020 Unclassified (4 sources) CONTACT W/AND (SUSP) EXPOS COVID-19; Translations: [CONTACT W/AND (SUSP) EXPOS COVID-19] Onset: 12-04-2021 Unclassified (1 source) ABDOMINAL AA W/O RUPTURE UNSPCIFIED; Translations: [ABDOMINAL AA W/O RUPTURE UNSPCIFIED] Onset: 02-07-2022 Unclassified (3 sources) SUBACUTE COUGH; Translations: [SUBACUTE COUGH] Onset: 12-10-2021 Unclassified (1 source) Abdominal aortic aneurysm, without rupture, unspecified; Translations: [Abdominal aortic aneurysm, without rupture, unspecified] Onset: 06-16-2023 Unclassified (2 sources) New Patient; Translations: [New Patient] Onset: 08-13-2023 Past or Other Problems Problem Classification Problem [...] 2 Episodic Other aftercare (1 source) Other predatory animal exterminator (current) drug therapy; Translations: [OTH FORMAL WEAR RENTAL CLERK CURRENT DRUG THERAPY] Onset: 2 Episodic Other aftercare (1 source) terminal carman (current) use of anticoagulants; Translations: [FORMAL WEAR RENTAL CLERK CURRNT USE ANTICOAGULANTS] Onset: 2 Episodic Other aftercare (1 source) long-term (current) use of aspirin; Translations: [SENIOR LIVING CURRENT USE OF ASPIRIN] Onset: 2 Episodic [...] Test Name Value Interpretation Reference Range Facility ANTI C3 DATon 09-17-2023 ANTI C3 ASHLEY Negative Normal [facility] Comment on above: 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: 2 uni ts Performed By: #### L [id number] #### [facility] , ANTI IGG DATon 09-17-2023 ANTI IGG ASHLEY Negative Normal [facility] Comment on above: 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: 2 uni ts Performed By: #### L [id number] #### [facility] , ANTIBODY IDENTIFICATIONon ANTIBODY IDENTIFICATION [facility] Normal [facility] Comment on above: 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: 2 uni ts Performed By: #### L [id number] ####[facility], [place] 09-17-[id number] 1940 M Count Includes [facility] Provider Department [place] 09/17/2023 [id number] RESOURCE DCC DRAW DCC Family History Problem Relation Age of Onset Heart disease Mother No Known Problems Father No Known Problems Sister Family Status - Relation Status Age at Mother Father Sister Alive Normal [facility] TYPE AND SCREENon 09-17-2023 AB SCREEN Positive Normal [facility] Comment on above: 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: 2 uni ts Performed By: #### L [id number] #### [facility] , ABO group Nom (Bld) A Normal [facility] Comment on above: 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: 2 uni ts Performed By: #### L [id number] #### [facility] , RH [facility]LOOD [facility]: 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: 2 uni ts Performed By: #### L [id number] #### [facility] , Abstracton 09-14-2023 Abstract [id number] [address] 1940 M Count Includes [facility] Provider Department Center 09/14/2023 [id number] BRYANT [facility] ONC DCC Family History Problem Relation Age of Onset Heart disease Mother No Known Problems Father No Known Problems Sister Family Status - Relation Status Age at Mother Father Sister Alive Normal [facility] Abstracton 09-13-2023 [id number] 1940 M Date Provider Department Center 09/13/2023 [id number] DCC ONC DCC Family History Problem Relation Age of Onset Heart disease Mother No Known Problems Father No Known Problems Sister Family Status - Relation Status Age at Mother Father Sister Alive Normal [facility] [facility] echo limited [facility] echo limited [facility] Main Drain [address] [place] [address] Echocardiogram Signed Patient: Chico Baker MR#: [id number] 284 : 1940 Acct:[id number] Age/Sex: 83 / M ADM Date: 08/31/23 Loc: Room: Type: [facility] Attending Dr: Sheri Christiansen MD Ordering Provider: Sheri Christiansen MD Date of Service: 08/31/23 [facility] echo limited: I35.0 - Nonrheumatic aortic (valve) stenosis Copies to: MD Judah Schmidt MD Ordering Physician: Sheri Christiansen Height: 65.5 in Weight: 140 lb Performed By: Trinh Catherine RDCS BSA: 1.7 m2 BP: 132/65 mmHg HR: 63 Reason For Study: Nonrheumatic aortic (valve) stenosis History: Carotid Artery Disease. HTN. PAD. Aortic Stenosis. Abdominal Aortic Aneurysm. Former Smoker. Family history of CAD. Interpretation Summary The left ventricular size, thickness and function are normal Ejection Fraction = 60-65%. Moderate valvular aortic stenosis. There is trace mitral regurgitation. There is trace tricuspid regurgitation. Procedure/Quality: A two-dimensional transthoracic echocardiogram with color flow and Doppler was performed in limited views only. The study was technically good in quality. Left Ventricle: The left ventricular size, thickness and function are normal. Upper septal hypertrophy (sigmoid septum), normal variant. Ejection Fraction = 60-65%. No left ventricular thrombus or mass is seen. Left Atrium: The left atrium appears normal in size. The atrial septum appears normal. Right Atrium: The right atrium appears normal in size. Right Ventricle: The right ventricular size, thickness and function are normal. Aortic Valve: The aortic valve is moderately calcified. Moderate valvular aortic stenosis. Mitral Valve: The mitral valve is mildly sclerotic. There is trace mitral regurgitation. Tricuspid Valve: The tricuspid valve is normal. There is trace tricuspid regurgitation. Pulmonic Valve: The pulmonic valve is not well visualized. Arteries: The aortic root is normal size. The aortic arch was visualized and no abnormalities were seen. Pericardium/Pleura: No pericardial effusion seen. There is no pleural effusion. IVC/Hepatic Veins: The inferior vena cava is normal in size, with a normal collapsibility index. Measurements with Normals IVSd: 1.5 cm (0.7-1.1 cm)LVIDd: 4.0 cm (3.7-5.4 cm) LVPWd: 1.1 cm (0.7-1.1 cm)LVIDs: 2.6 cm (2.3-3.6 cm) LA dimension: 3.8 cm(2.3-4.0 cm)Ao root diam: 2.9 cm(2.0-3.6 cm) Doppler with Normals RVSP(TR): 26.1 mmHg (18-35mmHg) LV V1 max: 102.3 cm/sec (0.7-1.7m/s)MV E max tiffanie: 88.1 cm/sec(0.8-1.3m/s) MV A max tiffanie: 111.6 cm/sec(0.0-0.0m/s) MV E/A: 0.79 (<1.5) MMode/2D Measurements Calculations TAPSE: 1.8 cm FS: 34.6 % Ao root area: LVOT diam: 2.0 cm RV S Tiffanie: EDV(Teich): 71.7 ml6.8 cm2 LVOT area: 11.7 cm/sec ESV(Teich): 25.6 ml 3.2 cm2 EF(Teich): 64.3 % __ LVLd ap4: 8.9 cm SV(MOD-sp4): EDV(MOD-sp4): 51.2 ml 80.8 ml LVLs ap4: 7.6 cm ESV(MOD-sp4): 29.6 ml EF(MOD-sp4): 63.4 % Doppler Measurements Calculations MV dec time: MV V2 max: E/E' lat: 10.7 MV dec slope: 0.26 sec 112.7 cm/sec E/E' med: 12.7 343.8 cm/sec2 MV max P.0 mmHg MV V2 mean: 65.0 cm/sec MV mean P.0 mmHg MV V2 VTI: 35.0 cm MVA(VTI): 2.1 cm2 __ Ao V2 max: LV V1 max PG: MR max tiffanie: TV max P.0 mmHg 312.2 cm/sec 4.2 mmHg 292.6 cm/sec Ao max PG: LV V1 mean PG: MR max P.0 mmHg 2.3 mmHg 34.2 mmHg Ao mean PG: LV V1 mean: 22.0 mmHg 70.0 cm/sec Ao V2 mean: LV V1 VTI: 22.9 cm 226.2 cm/sec Ao V2 VTI: 75.9 cm ASHOK(I,D): 0.98 cm2 ASHOK(V,D): 1.1 cm2 __ TR max tiffanie: 240.3 cm/sec TR max P.1 mmHg RAP systole: 3.0 mmHg Transcribed By: SCV Performed At: 08/31/23 1450 Signed By: Judah Harrington MD 08/31/23 1723 Normal [facility] FPG ECG *CARDIOLOGY ONLY*on 08-19-2023 FPG ECG *CARDIOLOGY ONLY* [facility] [place] [address] Electrocardiograph Report Signed Patient: Chico Baker MR#: [id number] 284 : 1940 Acct:[id number] Age/Sex: 83 / M ADM Date: 08/19/23 Loc: EKGCARDIO Room: Type: [facility] Attending Dr: Sheri Christiansen MD Ordering Provider: Sheri Christiansen MD Date of Service: 08/19/23 ECG/FPG ECG *CARDIOLOGY ONLY*: I35.0 - Nonrheumatic aortic (valve) stenosis Copies to: Test Reason : Blood Pressure : / mmHG Vent. Rate : 061 BPM Atrial Rate : 061 BPM P-R Int : 172 ms QRS Dur : 088 ms QT Int : 426 ms P-R-T Axes : 069 076 062 degrees QTc Int : 428 ms Normal sinus rhythm Normal ECG Confirmed by Sheri Christiansen ([id number]) on 08/20/2023 12:14:54 AM Referred By: Electronically Signed By:Sheri Christiansen Transcribed By: MUS Signed By Sheri Christiansen MD 4 0014 Normal [facility] 29on 08-18-2023 29 Addended by: NICOLE MONTES on: 08/19/2023 11:25 AM Modules accepted: Orders Normal [facility] APTTon 08-18-2023 ACTIVATED PARTIAL THROMBOPLASTIN TIME IN PPP BY COAGULATION ASSAY 32.1 Seconds Normal 25.0-35.0 [facility] Comment on above: Result Comment: Clin ical significance of the APTT is questionable in the presence of heparin. Performed By: #### L [id number] #### [facility] (BEAKER) [address] [place] [address] CANCER ANTIGEN 19-9on 2023 CANCER AG 19-9 (U/ML) IN SER/PLAS <2 Normal <=35 [facility] Comment on above: Result Comment: INTE RPRETIVE INFORMATION: Cancer Antigen-GI (CA 19-9) This test uses Ja CA 19-9 electrochemiluminescent immunoassay. Results obtained with different test methods or kits cannot be used interchangeably. CA 19-9 value is useful in monitoring pancreatic, hepatobiliary, gastric, hepatocellular, and colorectal cancer. CA 19-9 value, regardless of level, should not be interpreted as absolute evidence of the presence or absence of malignant disease. Performed By: [employer] [address] [place] [address] Corporate Compliance Director: Mario Mckeon MD, PhD CLIA Number: [id number] Performed By: #### L [id number] #### [facility] (BEAKER) [address] [place] [address] CBCon 08-18-2023 Erythrocyte distribution width (RBC) [Ratio] 12.6 % Normal 11.5-15.0 [facility] Comment on above: Performed By: #### L [id number] #### [facility] (BEAKER) [address] [place] [address] ERYTHROCYTE MEAN CORPUSCULAR HEMOGLOBIN CONCENTRATION (G/DL) BY AUTOMATED 32.3 g/dL Normal 32.0-35.0 [facility] Comment on above: Performed By: #### L [id number] #### [facility] ([facility]) [address] [place] [address] Hematocrit (Bld) [Volume fraction] 37.8 % Low 39.0-55.0 [facility] Comment on above: Performed By: #### L [id number] #### [facility] ([facility]) [address] [place] [address] Hemoglobin (Bld) [Mass/Vol] 12.2 g/dL Low 13.0-17.0 [facility] Comment on above: Performed By: #### L [id number] #### [facility] ([facility]) [address] [place] [address] MCH (RBC) [Entitic mass] 30.7 pg Normal 27.0-33.0 [facility] Comment on above: Performed By: #### L [id number] #### [facility] (BEAKER) [address] [place] [address] MCV (RBC) [Entitic vol] 95.0 fL Normal 82.0-98.0 [facility] Comment on above: Performed By: #### L [id number] #### [facility] (BEAKER) [address] [place] [address] PLATELETS (10*3/UL) IN BLOOD AUTOMATED COUNT 206 10*3/uL Normal 150-400 [facility] Comment on above: Performed By: #### L [id number] #### [facility] (BEAKER) [address] [place] [address] RBC (Bld) [#/Vol] 3.98 10*6/uL Low 4.20-5.70 [facility] Comment on above: Performed By: #### L [id number] #### [facility] ([facility]) [address] [place] [address] WBC (Bld) [#/Vol] 10.15 10*3/uL Normal 4.00-10.[address] [facility] Comment on above: Performed By: #### L [id number] #### [facility] ([facility]) [address] [place] [address] COMPREHENSIVE METABOLIC PANE [place] 08-18-2023 Albumin [Mass/Vol] 4.1 g/dL Normal 3.5-5.7 [facility] Comment on above: Performed By: #### L [id number] #### [facility] ([facility]) [address] [place] [address] ALP [Catalytic activity/Vol] 122 U/L High 34-104 [facility] Comment on above: Performed By: #### L [id number] #### [facility] ([facility]) [address] [place] [address] ALT [Catalytic activity/Vol] 8 U/L Normal 7-52 [facility] Comment on above: Performed By: #### L [id number] #### [facility] ([facility]) [address] [place] [address] Anion gap [Moles/Vol] 12 mmol/L Normal 7-20 [facility] Comment on above: Performed By: #### L [id number] #### [facility] ([facility]) [address] [place] [address] AST [Catalytic activity/Vol] 12 U/L Low 13-39 [facility] Comment on above: Performed By: #### L [id number] #### [facility] ([facility]) [address] [place] [address] Bilirubin [Mass/Vol] 0.5 mg/dL Normal 0.3-1.[address] [facility] Comment on above: Performed By: #### L [id number] #### [facility] ([facility]) [address] [place] [address] Calcium [Mass/Vol] 8.9 mg/dL Normal 8.6-10.3 [facility] Comment on above: Performed By: #### L [id number] #### [facility] ([facility]) [address] [place] [address] Chloride [Moles/Vol] 102 mmol/L Normal 98-[address] [facility] Comment on above: Performed By: #### L [id number] #### [facility] ([facility]) [address] [place] [address] CO2 [Moles/Vol] 26 mmol/L Normal 21-31 [facility] Comment on above: Performed By: #### L [id number] #### [facility] ([facility]) [address] [place] [address] Creatinine [Mass/Vol] 1.02 mg/dL Normal 0.70-1.30 [facility] Comment on above: Performed By: #### L [id number] #### [facility] ([facility]) [address] [place] [address] GLOMERULAR FILTRATION RATE ML/MIN/1.73 SQ M.PREDICTED 73.8 mL/min/1.73m*2 Normal >60.0 [facility] Comment on above: Result Comment: The [facility]???s estimated glomerular filtration rate (eGFR) will no longer include consideration of race in its calculation. The National Kidney Foundation???s eGFR Task Force developed new recommendations for the estimation of the glomerular filtration rate in the [place] They recommend immediate implementation of the new equation refit without the race variable in all laboratories because the calculation does not include race. In addition to not including race in the calculation and reporting, it included diversity in its development, and has acceptable performance characteristics and potential consequences that do not disproportionately affect any one group of individuals. Performed By: #### L [id number] #### [facility] ([facility]) [address] [place] [address] Glucose [Mass/Vol] 100 mg/dL Normal 70-100 [facility] Comment on above: Performed By: #### L [id number] #### [facility] ([facility]) [address] [place] [address] Potassium [Moles/Vol] 4.7 mmol/L Normal 3.5-5.1 [facility] Comment on above: Performed By: #### L [id number] #### [facility] ([facility]) [address] [place] [address] Protein [Mass/Vol] 7.8 g/dL Normal 6.0-8.3 [facility] Comment on above: Performed By: #### L [id number] #### [facility] ([facility]) [address] [place] [address] Sodium [Moles/Vol] 135 mmol/L Low 136-145 [facility] Comment on above: Performed By: #### L [id number] #### [facility] ([facility]) [address] [place] [address] Urea nitrogen [Mass/Vol] 24 mg/dL Normal 7-25 [facility] Comment on above: Performed By: #### L [id number] #### [facility] ([facility]) [address] [place] [address] UREA NITROGEN/CREATININE (MASS RATIO) IN SER/PLAS 23.5 Normal [facility] Comment on above: Performed By: #### L [id number] #### [facility] ([facility]) [address] [place] [address] [place] 08-18-[id number] 1940 M Date Provider Department [place] 08/18/2023 224-[facility] RESOURCE [facility] Comprehensiv Family History Problem Relation Age of Onset Heart disease Mother No Known Problems Father No Known Problems Sister Family Status - Relation Status Age at Mother Father Sister Alive Normal [facility] Office Visiton 08-18-2023 Follow-up visit [id number] Clarice Baker minoo Melgoza 1940 M Date Provider Department Center 08/18/2023 [id number] BRYANT DCC ONC DCC Family History Problem Relation Age of Onset Heart disease Mother No Known Problems Father No Known Problems Sister Family Status - Relation Status Age at Mother Father Sister Alive Level of Service:97971 [facility] OFFICE/OUTPATIENT ESTABLISHED HIGH MDM 40 MIN Reason for Visit and Comments: 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 Review MRCP that was done yesterday. Normal [facility] PROTIME-INRon 08-18-2023 INR IN PPP BY COAGULATION ASSAY 1.03 Normal 0.90-1.10 [facility] Comment on above: Result Comment: ACCC P RECOMMENDED INR FOR WARFARIN THERAPY CONDITION INR PROPHYLAXIS OF VENOUS THROMBOSIS 2-3 (HIGH-RISK SURGERY) TREATMENT OF VENOUS THROMBOSIS 2-3 TREATMENT OF PULMONARY EMBOLISM 2-3 PREVENTION OF SYSTEMIC EMBOLISM: 2-3 ACUTE MYOCARDIAL INFARCTION TISSUE HEART VALVES VALVULAR HEART DISEASE ATRIAL FIBRILLATION RECURRENT SYSTEMIC EMBOLISM MECHANICAL HEART VALVE 2.5-3.5 FROM: ORAL ANTICOAGULANTS. MECHANISM OF ACTION, CLINICAL EFFECTIVENESS, AND OPTIMAL THERAPEUTIC RANGE. CHEST 1995;108:231S-246S. Performed By: #### L [id number] ####[facility] [place] [address] PROTHROMBIN TIME (PT) IN PPP BY COAGULATION ASSAY 13.5 Seconds Normal 12.3-14.8 [facility] Comment on above: Performed By: #### L [id number] ####[facility] ([facility])[address] [place] [address] TYPE AND SCREENon 08-18-2023 AB SCREEN Negative Normal [facility] Comment on above: Performed By: #### L [id number] #### [facility] , ABO group Nom (Bld) A Normal [facility] Comment on above: Performed By: #### L [id number] #### [facility] , RH TYPE IN BLOOD Positive Normal [facility] Comment on above: Performed By: #### L [id number] #### [facility] , MR ABDOMEN WO CONTRAST MRCPo n 08-17-2023 MR ABDOMEN WO CONTRAST MRCP MR ABDOMEN WO CONTRAST MRCP 08/17/2023 8:06 AM CLINICAL INDICATIONS: Suggestion of gallbladder mass by recent ultrasound study. 30 pound weight loss and abdominal pain TECHNOLOGIST COMMENTS: Gallbladder mass by recent ultrasound. QUESTION FOR RADIOLOGIST: Evaluate possibility of malignancy COMPARISON: Ultrasound study from outside institution dated 07/06/2023 TECHNIQUE: The following sequences were obtained on a 3 Merna scanner: 3D-MRCP, axial and coronal 2D MRCP, axial T2 fast (turbo) spin-echo with fat saturation, axial 2D T1 weighted in/out phase . FINDINGS: The extrahepatic bile ducts have normal caliber. Intrahepatic bile ducts are adequately visualized and appear normal in caliber. A dominant stricture is not identified . Intrahepatic bile ducts contain no filling defects. T2 weighted images show no periportal edema. Gallbladder is moderately distended with evidence of small polyp seen at the posterior wall measuring 5 mm in diameter. There is also heterogeneous mass seen at the fundus of the gallbladder measuring 1.7 x 1.4 cm. Demonstrates areas of signal loss and areas of heterogeneous signal including cystic changes. Evaluation is somewhat limited without IV contrast administration which is suggested. Findings may represent large polyp but gallbladder cancer is not excluded. No definite evidence of direct invasion into the adjacent liver parenchyma. Small bilateral renal cysts are visualized. Abdominal aortic aneurysm is visualized with diameter of 5.1 cm and endovascular stent graft is seen. It appears to terminate at the bifurcation. No para-aortic or retrocrural peritoneal pathologic adenopathy is appreciated. Bowel loops appear unremarkable. Visualized part of the liver, spleen and kidneys appear grossly unremarkable apart from the small renal cysts.. Biliary or liver masses: None. Portal veins are patent. Hepatic veins are patent. Celiac and hepatic arterial anatomy unremarkable. Aorta is aneurysmal. Arterial stenoses none. Lymph nodes: None. Liver is normal . There is no steatosis. There is no ascites. Spleen: Normal. Adrenal glands: Normal. Kidneys: Bilateral small renal cysts Pancreas: Normal. IMPRESSION: Suggestion of small polyp in the posterior wall of the gallbladder with correlated with the sonographic findings and measure 4 to 5 mm in diameter. Heterogeneous mass measuring 1.7 x 1.4 cm at the fundus of the gallbladder with cystic components and areas of signal loss. Findings are worrisome for large polyp versus malignancy. No evidence of direct invasion or involvement of the adjacent liver parenchyma. Lack of IV contrast limits evaluation. Repeat examination with contrast is suggested. Bilateral small renal cysts. Unremarkable MRCP. Recommendations: Postcontrast MRI examination of the liver and gallbladder can be obtained for further evaluation of the gallbladder fundal mass. Electronically signed: Mendoza Rodriguez MD. Not Vldtd Invalid Interpretation Code [facility] Comment on above: 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: Gallb ladder mass. 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 Normal [facility] Orders Onlyon 08-04-2023 Orders Only [id number] [address] 1940 M Date Provider Department Center 08/04/2023 [id number], HISTORICAL DCC ONC DCC No family history on file Normal [facility] CT angio abdomen pelvison CT angio abdomen pelvis [facility] Main [address] [address] [address] Scan Report Signed Patient: Chico Baker MR#: [id number] 284 : 1940 Acct:[id number] Age/Sex: 83 / M ADM Date: 06/16/23 Loc: CT Room: Type: [facility] Attending Dr: Raul Quan MD Copies to: Raul Quan MD Ordering Provider: Raul Quan MD Date of Service: 06/16/23 CT/CT angio abdomen pelvis: I71.4 CTA abdomen and pelvis . CLINICAL DATA: Follow-up aortic repair. TECHNIQUE: CT of the abdomen and pelvis was initially performed without contrast. Intravenous contrast-enhanced CT angiography of the abdomen and pelvis was then performed. Axial, sagittal, coronal and volume-rendered three-dimensional reconstructions were created and reviewed. This CT exam was performed using one or more of the following dose reduction techniques: Automated exposure control, adjustment of the mA and/or kV according to patient size, or use of iterative reconstruction technique. COMPARISON: Prior CT abdomen and pelvis 05/11/2022. FINDINGS: Lung Bases: No acute findings. Organs:Liver appears unremarkable. A questionable mass versus polyp is seen involving the fundus of the gallbladder measuring 1.4 x 1.4 cm in greatest axial dimensions. No invasion into the adjacent liver parenchyma is seen.[Pancreas spleen and adrenal glands all appear unremarkable. Right nephrolithiasis, largest stone measuring 1 cm. Small cyst right kidney. Left kidney demonstrates a small cyst and stones, largest stone measuring 7 mm. Endovascular repair is seen of an infrarenal abdominal aortic 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 The [place] aneurysmal sac is grossly unchanged in size measuring 5 cm in greatest axial dimension. Stent is patent. No critical stenosis or occlusion is seen involving the major visceral branches of the abdominal aorta. The iliac vasculature demonstrates calcification without critical stenosis or occlusion. GI: Stomach is grossly unremarkable. Small bowel appears nondilated. Appendix is normal. Colonic diverticulosis with wall thickening involving the sigmoid colon likely a sequela of prior diverticulitis. Finding is similar to the prior study. No colonic obstruction.[ Pelvis:[Urinary bladder is grossly unremarkable. Prostate gland is partially calcified without enlargement.] Peritoneum/Retroperitoneum :No free air or free fluid. No lymphadenopathy.[ Abd wall/Bones:Abdominal wall demonstrates no acute findings. Osseous structures demonstrate degenerative change. Increased trabeculation involving the left hemipelvis likely related to Paget's disease. Partially visualized right hip hardware. CT/CT angio abdomen pelvis IMPRESSION: 1. Endovascular repair of a infrarenal abdominal aortic 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 2. Questionable mass versus polyp involving the fundus of the gallbladder measuring 1.4 x 1.4 cm in greatest axial dimensions. Further evaluation with ultrasound is recommended. No aggressive features are seen such as extension into the liver parenchyma to suggest carcinoma. 3. Bilateral nephrolithiasis. 4. Colonic diverticulosis with wall thickening involving the sigmoid colon likely related to prior diverticulitis. Findings are grossly unchanged from the prior study. Impression dictated by: Woody Payan Jr., D.O.06/16/2023 1:59 PM Dictation Location: [place] [address] Transcribed By: [facility] 06/16/23 1350 Dictated By: Woody Payan Jr, DO 06/16/23 1351 Signed By: 06/16/23 1359 Normal [facility] ISTAT XRay CREon 06-16-2023 ISTAT GFR > 60.0 Normal [facility] Comment on above: Result Comment: PERF ORMED BY: [place] [address] PATHOLOGIST BEAM BUILDER ZENA CASTELLON M.D. Performed By: #### I SCRE #### [address] No Panel InformationOrdered By: Raul Quan on 06-16-2023 Bedside Estimated GFR (eGFR) > 60.0 [facility] Whole blood creatinine measu rementOrdered By: Raul Quan on 06-16-2023 Creatinine [Mass/Vol] 0.9 mg/dL Normal 0.6-1.3 [facility] Comment on above: ER/ESD physician is notified/shown all ISTAT results.Critical values may be confirmed by laboratory testing ifdeemed necessary by ER attending doctor. Result Comment: ER/E SD physician is notified/shown all ISTAT results. Critical values may be confirmed by laboratory testing if deemed necessary by ER attending doctor. Performed By: #### I SCRE #### [facility] [facility] [address] Calculus Analysison 05-12-19 24 Calcium oxalate dihydrate Infrared spectroscopy (Stone) [Mass fraction] 20 % Invalid Interpretation Code [facility] Comment on above: Performed By: #### 1 [id number] ####[facility] [address] [facility] [place] [address] Calcium oxalate monohydrate (Stone) [Mass fraction] 80 % Invalid Interpretation Code [facility] Comment on above: Performed By: #### 1 [id number] ####[facility] [address] [facility] [place] [address] Color (Stone) Brown Invalid Interpretation Code [facility] Comment on above: Performed By: #### 1 [id number] ####[facility] [address] [facility] [place] [address] Composition Comment Invalid Interpretation Code [facility] Comment on above: Result Comment: Perc entage (Represents the % composition) Performed By: #### 1 [id number] ####[facility] [address] [facility] [place] [address] Disclaimer: Comment Invalid Interpretation Code [facility] Comment on above: Result Comment: This test was developed and its performance characteristics determined by [facility]. It has not been cleared or approved by the Food and Drug Administration. Performed at: [address] [id number] Emanuel Silverman Performed By: #### 1 [id number] ####[facility] [address] [facility] [place] [address] Laboratory comment Daniel (Report) Comment Invalid Interpretation Code [facility] Comment on above: Result Comment: Phys popan questions regarding Calculi Analysis contact [facility] at: [phone]. Performed By: #### 1 [id number] ####[facility] [address] [facility] [place] [address] Please Note: Comment Invalid Interpretation Code [facility] Comment on above: Result Comment: Calc melissa report will follow via computer, mail or cutter finisher delivery. Performed By: #### 1 [id number] ####[facility] [address] [place] [address] Size (Stone) [Entitic vol] 2x3 Invalid Interpretation Code [facility] Comment on above: Result Comment: Mult iple pieces received. Dimensions of the largest piece reported. Performed By: #### 1 [id number] ####[facility] [address] [place] [address] Specimen source subject Nom Comment Invalid Interpretation Code [facility] Comment on above: Result Comment: Not provided Performed By: #### 1 [id number] ####[facility] [address] [place] [address] Stone Photo Comment Invalid Interpretation Code [facility] Comment on above: Result Comment: Phot ograph will follow under a separate cover Performed By: #### 1 [id number] ####[facility] [address] [place] [address] Weight (Stone) 12 mg Invalid Interpretation Code [facility] Comment on above: Performed By: #### 1 [id number] ####[facility] [address] [place] [address] Consent for Procedure/Surger yon 05-05-2023 Consent for Procedure/Surgery [id number]#1.00TIFF Normal [facility] RAD - MISCon 05-05-2023 RAD - MISC [id number]#1.00TIFF Normal [facility] Ambulatory Visit Summaryon 0 05-04-2023 Ambulatory Visit Summary CHICO BAKER :1940 Visit Date:05/04/2023 Ambulatory Visit Instructions Your Diagnosis BPH with obstruction/lower urinary tract symptoms Kidney stones Ureteral stone Asymptomatic microscopic hematuria 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 Your Care Team Attending Physician - Mo LEIJA, Ivelisse Schreiber Primary Care Physician - BALL DO, SHIALESH This Is Your Medications List Contact prescribing physician if questions or concerns [facility] Pres[place] (#####) aspirin (aspirin 81 mg oral capsule) calcium citrate (calcium (as calcium citrate) 200 mg oral tablet) carvedilol isosorbide dinitrate losartan (losartan 25 mg Tab) mirabegron (Myrbetriq 25 mg oral tablet, extended release) pravastatin Procedures Performed Cystoscopic removal of ureteric stent (05/04/2023), Cystourethroscopy with dilation of urethral stricture (07/28/2022), AAA - Repair of abdominal aortic aneurysm using bifurcation graft (02/05/2022), Transurethral resection of prostate (10/18/2019), Cystoscope (04/06/2019), Colonoscopy (10/06/2016), Arthroscopy of knee, Cardiac catheterization, left heart, Esophagogastroduodenoscopy . Discharge Vitals Heart Rate (Peripheral) 63 Blood Pressure 116/46 Height 169 cm Height 67 in Weight 61.5 kg Weight 135.3 lb BMI 21.53 What to do next Scheduled Follow-Up Appointments Wednesday 11:00 AM EDT With: Mo LEIJA, Ivelisse Schreiber Where: [facility] Patient Educationon 05-04-19 Patient Education Nephrology Dietary Guidelines to Help Prevent Kidney Stones Kidney stones are deposits of minerals and salts that form inside your kidneys. Your risk of developing kidney stones may be greater depending on your diet, your lifestyle, the medicines you take, and whether you have certain medical conditions. Most people can lower their risks of developing kidney stones by following these dietary guidelines. Your dietitian may give you more specific instructions depending on your overall health and the type of kidney stones you tend to develop. What are tips for following this plan? Reading food labels ? Choose foods with no salt added or low-salt labels. Limit your salt (sodium) intake to less than 1,500 mg a day. ? Choose foods with calcium for each meal and snack. Try to eat about 300 mg of calcium at each meal. Foods that contain 200?500 mg of calcium a serving include: ? 8 oz (237 mL) of milk, pykhhme-fusajrnkwihu-wqgiv milk, and calcium-fortifiedfruit juice. Calcium-fortified means that calcium has been added to these drinks. ? 8 oz (237 mL) of kefir, yogurt, and soy yogurt. ? 4 oz (114 g) of tofu. ? 1 oz (28 g) of cheese. ? 1 cup (150 g) of dried figs. ? 1 cup (91 g) of cooked broccoli. ? One 3 oz (85 g) can of sardines or mackerel. Most people need 1,000?1,500 mg of calcium a day. Talk to your dietitian about how much calcium is recommended for you. Shopping ? Buy plenty of fresh fruits and vegetables. Most people do not need to avoid fruits and vegetables, even if these foods contain nutrients that may contribute to kidney stones. ? When shopping for convenience foods, choose: ? Whole pieces of fruit. ? Pre-made salads with dressing on the side. ? Low-fat fruit and yogurt smoothies. ? Avoid buying frozen meals or prepared deli foods. These can be high in sodium. ? Look for foods with live cultures, such as yogurt and kefir. ? Choose high-fiber grains, such as whole-wheat breads, oat bran, and wheat cereals. Cooking ? Do not add salt to food when cooking. Place a salt shaker on the table and allow each person to add their own salt to taste. ? Use vegetable protein, such as beans, textured vegetable protein (TVP), or tofu, instead of meat in pasta, casseroles, and soups. Meal planning ? Eat less salt, if told by your dietitian. To do this: ? Avoid eating processed or pre-made food. ? Avoid eating fast food. ? Eat less animal protein, including cheese, meat, poultry, or fish, if told by your dietitian. To do this: ? Limit the number of times you have meat, poultry, fish, or cheese each week. Eat a diet free of meat at least 2 days a week. ? Eat only one serving each day of meat, poultry, fish, or seafood. ? When you prepare animal proteins, cut pieces into small portion sizes. For most meat and fish, one serving is about the size of the palm of your hand. ? Eat at least five servings of fresh fruits and vegetables each day. To do this: ? Keep fruits and vegetables on hand for snacks. ? Eat one piece of fruit or a handful of berries with breakfast. ? Have a salad and fruit at lunch. ? Have two kinds of vegetables at dinner. ? You may be told to limit foods that are high in a substance called oxalate. These include: ? Spinach (cooked), rhubarb, beets, sweet potatoes, and [place] Island[place] chard. ? Peanuts. ? Potato chips, qatari fries, and baked potatoes with skin on. ? Nuts and nut products. ? Chocolate. ? If you regularly take a diuretic medicine, make sure to eat at least 1 or 2 servings of fruits or vegetables that are high in potassium each day. These include: ? Avocado. ? Banana. ? [place], prune, carrot, or tomato juice. ? Baked potato. ? Cabbage. ? Beans and split peas. Lifestyle ? Drink enough fluid to keep your urine pale yellow. This is the most important thing you can do. Spread your fluid intake throughout the day. ? If you drink alcohol: ? Limit how much you have to: ? 0?1 drink a day for women who are not . ? 0?2 drinks a day for men. ? Know how much alcohol is in your drink. In the [place] one drink equals one 12 oz bottle of beer (355 mL), one 5 oz glass of wine (148 mL), or one 1? oz glass of hard liquor (44 mL). ? Lose weight if told by your health care provider. Work with your dietitian to find an eating plan and weight loss strategies that work best for you. General information ? Talk to your health care provider and dietitian about taking daily supplements. Depending on your health and the cause of your kidney stones, you may be told: ? Do not take high-dose supplements of vitamin C (1,000 mg a day or more). ? To take a calcium supplement. ? To take a daily probiotic supplement. ? To take other supplements such as magnesium, fish oil, or vitamin B6. ? Take vsuu-wpo-polpnel and prescription medicines only as told by your health care provider. These include supplements. What foods sh (more content not included)... Normal [facility] RAD - MISCon 05-04-2023 [facility] [id number]#1.00TIFF Kaushik Carmichael [facility] Urology Office/Clinic Noteon 05-04-2023 Urology Office/Clinic Note Chief Complaint Cysto/Lt stent removal HPI Staff Chico is a 82 y.o. male here for CYSTO/ LT STENT REMOVAL History of Present Illness Tests reviewed: KUB. I have reviewed the previous health record information and history for this patient from . I have reviewed and verified the staff HPI to be accurate for this encounter. There have been no associated fever, chills, flank pain, or blood in the urine. Denies any urinary infections since last encounter. Review of Systems PHQ Score Initial Depression Screen Score: 0 SCORE ROS - Provider Constitutional: denies weight loss, [...] HPI. Physical Exam Vitals & Measurements HR: 63(Peripheral) BP: 116/46 HT: 67 in HT: 169 cm WT: 61.5 kg WT: 135.3 lb BMI: 21.53 General Appearance: alert, no distress, well nourished, well developed male. Procedure Operative Information Anesthesia Type: Local Procedure: Local Cystoscopy with Stent Removal Complications: None Surgical risks, benefits, details of the procedure have been explained to the patient. Full informed consent has been obtained. Intraoperative Information Prepped: Patient is placed in supine position. The patient was prepped with the Betadine solution. Anesthesia: 2% Xylocaine Jelly per urethra. Procedure: Cystoscopy and left stent removal. The flexible Cystoscope was passed in retrograde fashion into the bladder without difficulty. The bladder was viewed in entirety and found to be without tumors or stones. Mild inflammation was seen surrounding the orifice with the stent seen protruding from it. The stent was then grasped and removed in its entirety. Specimens Removed: None Postoperative Information The patient tolerated the procedure well and was subsequently discharged home. Assessment/Plan 82 yo male here today for IO cysto/Lt stent removal due to kidney stones S/p ESWL. ASA 81mg. Pt here with today. 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 PVR 0mL (26) Pt did try Doxazosin in the past [...] 1.5 cm. HU 900-1000, SSD 7-8 cm. KUB 02/19/23 - multiple bilateral renal stones, largest on the Rt measuring up to 5mm and largest on Lt measuring up to 8mm LINDSEY 02/19/23 - bilateral stones measuring up to 2.1cm on the Lt KUB 03/24/23 - stones in the Rt kidney measuring up to 10.6mm, stone in Lt kidney measuring up to 14.2mm, no ureteral stones S/p Cysto, Lt ESWL, Lt stent placement 03/24/23 KUB 04/27/23 - several large stones within the Rt kidney, 2 stones within the Lt kidney largest is 8mm, Lt ureteral stent appearing in good position, numerous 3-5mm stones project over the distal aspect of the Lt ureter S/p Lt ESWL (second stage) 04/28/23 KUB 05/03/23 - Right stone up to 1.2cm mid to lower pole, Lt ureteral stent in normal position, stones projecting over the lower pole, largest 7mm in diameter, no ureteral stones, Upon personal Review:4-5mm stone compared to previous 8mm stone Pt had IO cysto, Lt stent removal done today without complications. Discussed imaging results with pt, improved from prior, pt bought stones today. Remainder on left is passable. Will continue to monitor. Risk of passage and pain discussed. Follow up in 4 mos w/KUB. All questions/concern (more content not included)... [facility] Comment on above: Result Comment: Elec tronically Signed By: Mo LEIJA, Ivelisse Schreiber\.br\Date and Time Signed: 05/04/23 12:02 EST\.br\Electronically Co-Signed By: Eleonora Belcher\.br\Date and Time Co-Signed: 05/04/23 11:47 EST Operative Reporton Operative Report [id number]#1.00TIFF [facility] Physician Orderon 04-29-2023 Physician Order [id number]#1.00TIFF [facility] RAD - MISCon 04-28-2023 RAD - MISC [id number]#1.00TIFF [facility] Consultation Noteon 04-23-19 Consultation Note [id number]#1.00TIFF [facility] Formson 04-23-2023 Forms [id number]#1.00TIFF [facility] Consent for Procedure/Surger yon 04-21-2023 Consent for Procedure/Surgery [id number]#1.00TIFF Normal [facility] Lab Reportson 04-21-2023 Lab Reports [id number]#1.00TIFF Normal [facility] Lab Reports [id number]#1.00TIFF Normal [facility] Activated partial thrombopla stin time (aPTT) in platelet poor plasma by coagulation aon 04-20-2023 aPTT Coag (PPP) [Time] 32.6 s 22.3-36.2 [facility] Basophils Auto (Bld) [#/Vol] on 04-20-2023 Basophils (Bld) [#/Vol] 0.1 10 3/uL 0.0-0.1 [facility] Basophils/100 WBC Auto (Bld) on 04-20-2023 Basophils/100 WBC (Bld) 0.5 % 0.2-2.0 [facility] Eosinophils/100 WBC Auto (Bl d)on 04-20-2023 Eosinophils/100 WBC (Bld) 1.2 % 0.9-7.0 [facility] Erythrocyte distribution wid th Auto (RBC) [Ratio]on 04-20-2023 Erythrocyte distribution width (RBC) [Ratio] 12.4 % 11.0-15.0 [facility] Estimated glomerular filtrat ion rate (GFR) non- Americanon 04-20-2023 GFR/1.73 sq M.predicted among non-blacks MDRD (S/P/Bld) [Vol rate/Area] mL/min/{1.73_m2} >=60 [facility] Formson 04-20-2023 Forms [id number]#1.00TIFF Normal [facility] Hematocrit Auto (Bld) [Volum e fraction]on 04-20-2023 Hematocrit (Bld) [Volume fraction] 36.7 % 42.0-54.0 [facility] Hemoglobin [Mass/volume] in Bloodon 04-20-2023 Hemoglobin (Bld) [Mass/Vol] 11.5 g/dL 14.0-18.0 [facility] INR in Platelet poor plasma by Coagulation assayon 04-20-2023 INR Coag (PPP) [Relative time] 1.01 {INR} [facility] Comment on above: DESIRED INR:2.0-3.0 CONDITIONS NOT LISTED BELOW2.5-3.5 FOR PROSTHETIC HEART VALVE REPLACEMENT2.5-3.5 RECURRENT THROMBOSIS Laboratory - Chemistry and C hemistry - challengeon 04-20-2023 Calcium [Mass/Vol] 9.0 mg/dL 8.5-10.1 [facility] Chloride [Moles/Vol] 104 mmol/L 98-107 [facility] CO2 [Moles/Vol] 28.9 mmol/L 21.0-32.0 [facility] Creatinine [Mass/Vol] 0.89 mg/dL 0.70-1.30 [facility] GFR/1.73 sq M.predicted MDRD (S/P/Bld) [Vol rate/Area] mL/min/{1.73_m2} >=60 [facility] Glucose [Mass/Vol] 133 mg/dL 74-106 [facility] Potassium [Moles/Vol] 4.6 mmol/L 3.5-5.1 [facility] Sodium [Moles/Vol] 140 mmol/L 136-145 [facility] Urea nitrogen [Mass/Vol] 15.0 mg/dL 7.0-18.0 [facility] Urea nitrogen/Creatinine [Mass ratio] 16.9 mg/mg [facility] Laboratory - Hematology and Cell countson 04-20-2023 Immature granulocytes/100 WBC (Bld) 0.3 % 0.0-0.5 [facility] Leukocytes [#/volume] correc shyann for nucleated erythrocytes in Blood by Automated counon 04-20-2023 WBC corrected for nucl RBC Auto (Bld) [#/Vol] 9.9 10 3/uL 4.0-11.0 [facility] Lymphocytes Auto (Bld) [#/Vo l]on 04-20-2023 Lymphocytes (Bld) [#/Vol] 1.1 10 3/uL 1.2-3.8 [facility] Lymphocytes/100 WBC Auto (Bl d)on 04-20-2023 Lymphocytes/100 WBC (Bld) 11.3 % 20.5-60.0 [facility] MCH Auto (RBC) [Entitic mass ]on 04-20-2023 MCH (RBC) [Entitic mass] 29.6 pg 25.9-34.0 [facility] MCHC Auto (RBC) [Mass/Vol]on 04-20-2023 MCHC (RBC) [Mass/Vol] 31.3 g/dL 29.9-35.2 [facility] MCV Auto (RBC) [Entitic vol] on 04-20-2023 MCV (RBC) [Entitic vol] 94.6 fL 80.0-94.0 [facility] Monocytes Auto (Bld) [#/Vol] on 04-20-2023 Monocytes (Bld) [#/Vol] 0.8 10 3/uL 0.3-0.8 [facility] Monocytes/100 WBC Auto (Bld) on 04-20-2023 Monocytes/100 WBC (Bld) 8.5 % 1.7-12.0 [facility] Neutrophils Auto (Bld) [#/Vo l]on 04-20-2023 Neutrophils (Bld) [#/Vol] 7.8 10 3/uL 1.4-6.5 [facility] Neutrophils/100 WBC Auto (Bl d)on 04-20-2023 Neutrophils/100 WBC (Bld) 78.2 % 43.0-75.0 [facility] No Panel Informationon 04-20 Eosinophils # (Auto) 0.1 10 3/uL 0.0-0.7 [facility] Immature Granulocyte # (Auto) 0.03 10 3/uL 0.00-0.03 [facility] Platelet mean volume Auto (B ld) [Entitic vol]on 04-20-2023 Platelet mean volume (Bld) [Entitic vol] 9.4 fL 9.5-13.5 [facility] Platelets Auto (Bld) [#/Vol] on 04-20-2023 Platelets (Bld) [#/Vol] 188 10 3/uL 150-450 [facility] Prothrombin time (PT)on 04-08 PT Coag (PPP) [Time] 10.7 s 9.0-11.6 [facility] RBC Auto (Bld) [#/Vol]on RBC (Bld) [#/Vol] 3.88 10 6/uL 4.70-6.10 [facility] Serum or plasma anion gap de terminationon 04-20-2023 Anion gap [Moles/Vol] 11.7 mmol/L [facility] RAD - MISCon 04-08-2023 RAD - [facility] [id number]#1.00TIFF Normal [facility] Operative Reporton Operative Report [id number]#1.00TIFF Normal [facility] RAD - MISCon 03-25-2023 RAD - [facility] [id number]#1.00TIFF Normal [facility] Consent for Procedure/Surger yon 03-22-2023 Consent for Procedure/Surgery [id number]#1.00TIFF Normal [facility] Lab Reportson 03-19-2023 Lab Reports [id number]#1.00TIFF Normal [facility] RAD - MISCon 03-19-2023 RAD - [facility] [id number]#1.00TIFF Normal [facility] Reminderson 03-03-2023 Reminders - From: Faviola Clemens To: EU - Recallnils Lucaleb; Sent: 01/13/2023 10:01:25 EST Show up: 02/12/2023 10:01:00 EST Subject: LINDSEY and KUB Due Date/Time: 02/12/2023 10:01:00 EST Pt to have LINDSEY and KUB done in March at [facility]. Orders placed. Possible ESWL pending size of stones. No follow up at this time. Pt to be called with results. Called pt and reminded him to complete LINDSEY/KUB @ [facility] in the next month. Orders were faxed [...] given hard stone and large stone burden. ThanksRO Patient is scheduled for 03/24/22 @ [facility] Comment on above: Result Comment: Miss ing Attachment - attachment exceeds size limitation (02/19/2023) RAD - Ultrasound Report Can be viewed in source system Missing Attachment - attachment exceeds size limitation (02/19/2023) RAD - MISC Can be viewed in source system RAD - MISCon 02-22-2023 RAD - MISC [id number]#1.00TIFF [facility] RAD - Ultrasound Reporton RAD - Ultrasound Report [id number]#1.00TIFF [facility] Screenson 01-14-2023 Screens [id number]#1.00TIFF [facility] Screens [id number]#1.00TIFF [facility] Patient Educationon 01-14-20 Patient Education [...] Follow these instructions at home: ? Take cfyr-wti-arsblvr and prescription medicines only as told by [...] the medicine (more content not included)... Normal [facility] Urology Office/Clinic Noteon 01-13-2023 Urology [...] with voice recognition artificial intelligence software, specifically Appies, Wi3 and or Flyfit. Substitutions may have occurred due to the [...] stones no (more content not included)... Normal [facility] Comment on above: Result Comment: Elec tronically Signed By: Mo LEIJA, Ivelisse Schreiber\.br\Date and Time Signed: 01/13/23 16:25 EST\.br\Electronically Co-Signed By: Faviola Clemens\Date and Time Co-Signed: 01/13/23 09:59 EST US carotid doppler BIon 09-0 US carotid doppler BI [facility] Main Drain [address] [place] [address] Ultrasound Report Signed Patient: Chico Baker MR#: [id number] : 1940 Acct:[id number] Age/Sex: 82 / M ADM Date: 11/10/22 Loc: [facility] Room: Type: [facility] Attending Dr: Raul Quan MD Ordering Provider: [...] Raul Quan M.D.11/10/2022 10:30 AM Dictation Location: [place] [address] Tech: Harika Vazquezninoska Transcribed By: ALEX 11/10/22 1030 Dictated By: Raul Quan MD 11/10/22 1029 Signed By: 11/10/22 1030 Normal [facility] Screenson 10-08-2022 Screens [id number]#1.00CD:127 Normal [facility] Screens [id number]#1.00CD:127 Normal [facility] Ambulatory Visit Summaryon 0 10-07-2022 Ambulatory Visit Summary CHICO BAKER :1940 Visit Date:10/07/2022 Ambulatory Visit Instructions Your Diagnosis BPH with obstruction/lower urinary tract symptoms History of kidney stones Asymptomatic microscopic hematuria 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 Tests Performed Urnls Dip Stick Auto w/o Microscopy POC 49396 Your Care Team Attending Physician - Mo [...] Ivelisse Hassan MD Where: [facility] Patient Educationon 10-08-19 Patient Education Urology [...] Follow these instructions at home: ? Take woep-kyf-mjdpnsi and prescription medicines only as told by [...] the medicine (more content not included)... Normal [facility] Urology Office/Clinic Noteon 10-07-2022 Urology [...] lower urinary tract symptoms) hx TURP by [facility] 2019, prostate small on 05/11/22 CT scan [...] neg, s (more content not included)... Normal [facility] Comment on above: Result Comment: Elec tronically Signed By: Ivelisse Hassan MD\.br\Date and Time Signed: 10/07/22 10:28 EDT\.br\Electronically Co-Signed By: Eleonora Belcher.br\Date and Time Co-Signed: 10/07/22 09:25 EDT Consent for Procedure/Surger yon 07-29-2022 Consent for Procedure/Surgery [id number]#[id number]:127 Normal [facility] Patient Educationon 07-29-19 Patient Education Urology [...] these instructions at home: Medicines ? Take atok-uks-iawvbbk and prescription medicines only as told by [...] include cig (more content not included)... Normal [facility] Urology Office/Clinic Noteon 07-28-2022 Urology [...] urine The Urethra was dilated to: 16-24 Hungarian with connor sounds without difficulty Soft 14 [...] (erectile d (more content not included)... Normal [facility] Comment on above: Result Comment: Elec tronically Signed By: Mo LEIJA, Ivelisse Schreiber\.br\Date and Time Signed: 07/28/22 10:49 EDT\.br\Electronically Co-Signed By: Clarissa Joaquin MA\.br\Date and Time Co-Signed: 07/28/22 10:28 EDT Blood activated clotting sue e by coagulation assayOrdered By: Raul Quan on 07-08-2022 ACT Coag (Bld) 335 s 90-139 [facility] Comment on above: Reference Range: 90- 139 (Non-heparinized) Laboratory - CoagulationOrde red By: Raul Quan on 07-08-2022 PT Coag (PPP) [Time] 11.7 s 9.0-12.9 [facility] Platelet poor plasma interna tional normalized ratio (INR) by coagulation assay (relatOrdered By: Raul Quan on 07-08-2022 INR Coag (PPP) [Relative time] 1.0 {INR} [facility] Comment on above: INR Therapeutic Rang e A) Pre- and Peroperative OAT started two weeks before surgery. NOT HIP SURGERY: 1.5 - 2.5 HIP SURGERY: 2 - 3B) Primary and secondary prevention of venous THROMBOSIS: 2 - 3C) Active venous thrombosis, pulmonary embolismand prevention of recurrent venous thrombosis: 2 - 3D) Prevention of arterial thromboembolismincluding patients with mechanical heart valves: 3 - 4.5 Alanine aminotransferase [En zymatic activity/volume] in Serum or PlasmaOrdered By: Raul Quan on 07-01-2022 ALT [Catalytic activity/Vol] 9 U/L 7-52 [facility] Albumin [Mass/volume] in Ser um or Plasma by Bromocresol green (BCG) dye binding methoOrdered By: Raul Quan on 07-01-2022 Albumin BCG dye [Mass/Vol] 3.7 g/dL 3.5-5.7 [facility] Alkaline phosphatase [Enzyma tic activity/volume] in Serum or PlasmaOrdered By: Raul Quan on 07-01-2022 ALP [Catalytic activity/Vol] 96 U/L 34-104 [facility] Aspartate aminotransferase [ Enzymatic activity/volume] in Serum or PlasmaOrdered By: Raul Quan on 07-01-2022 AST [Catalytic activity/Vol] 14 U/L 13-39 [facility] Basophils Auto (Bld) [#/Vol] Ordered By: Raul Quan on 07-01-2022 Basophils (Bld) [#/Vol] 0.1 10*3/uL 0.0-0.2 [facility] Basophils/100 WBC Auto (Bld) Ordered By: Raul Quan on 07-01-2022 Basophils/100 WBC (Bld) 0.7 % . [facility] Bilirubin.total [Mass/volume ] in Serum or PlasmaOrdered By: Raul Quan on 07-01-2022 Bilirubin [Mass/Vol] 0.5 mg/dL 0.3-1.0 [facility] Calcium [Mass/volume] in Ser um or PlasmaOrdered By: Raul Quan on 07-01-2022 Calcium [Mass/Vol] 8.5 mg/dL 8.6-10.3 [facility] Carbon dioxide, total [Moles /volume] in Serum or PlasmaOrdered By: Raul Quan on 07-01-2022 CO2 [Moles/Vol] 24.6 mmol/L 21.0-31.0 [facility] Chloride [Moles/volume] in S aisha or PlasmaOrdered By: Raul Quan on 07-01-2022 Chloride [Moles/Vol] 100 mmol/L 98-107 [facility] Creatinine [Mass/volume] in Serum or PlasmaOrdered By: Raul Quan on 07-01-2022 Creatinine [Mass/Vol] 0.87 mg/dL 0.70-1.30 [facility] Eosinophils Auto (Bld) [#/Vo l]Ordered By: Raul Quan on 07-01-2022 Eosinophils (Bld) [#/Vol] 0.1 10*3/uL 0.0-0.45 [facility] Eosinophils/100 WBC Auto (Bl d)Ordered By: Raul Quan on 07-01-2022 Eosinophils/100 WBC (Bld) 1.5 % . [facility] Erythrocyte distribution wid th Auto (RBC) [Ratio]Ordered By: Raul Quan on 07-01-2022 Erythrocyte distribution width (RBC) [Ratio] 13.0 % 12.0-14.8 [facility] Globulin Calc (S) [Mass/Vol] Ordered By: Raul Quan on 07-01-2022 Globulin (S) [Mass/Vol] 3.4 g/dL [facility] Glucose [Mass/volume] in Ser um or PlasmaOrdered By: Raul Quan on 07-01-2022 Glucose [Mass/Vol] 163 mg/dL 70-100 [facility] Comment on above: ADA recommended refe rence rangeRandom Glucose Reference Range is dependent on time and content of last meal. Glucose of more than 200 mg/dL in a nonstressed, ambulatory subject supports the diagnosis of Diabetes Mellitus. Hematocrit Auto (Bld) [Volum e fraction]Ordered By: Raul Quan on 07-01-2022 Hematocrit (Bld) [Volume fraction] 36.4 % 38.8-50.0 [facility] Hemoglobin [Mass/volume] in BloodOrdered By: Raul Quan on 07-01-2022 Hemoglobin (Bld) [Mass/Vol] 12.1 g/dL 13.0-17.0 [facility] Leukocytes [#/volume] correc shyann for nucleated erythrocytes in Blood by Automated counOrdered By: Raul Quan on 07-01-2022 WBC corrected for nucl RBC Auto (Bld) [#/Vol] 8.5 10*3/uL 4.1-10.5 [facility] Lymphocytes Auto (Bld) [#/Vo l]Ordered By: Raul Quan on 07-01-2022 Lymphocytes (Bld) [#/Vol] 1.6 10*3/uL 1.00-4.8 [facility] Lymphocytes/100 WBC Auto (Bl d)Ordered By: Raul Quan on 07-01-2022 Lymphocytes/100 WBC (Bld) 19.3 % . [facility] MCH Auto (RBC) [Entitic mass ]Ordered By: Raul Quan on 07-01-2022 MCH (RBC) [Entitic mass] 30.2 pg 27.5-35.2 [facility] MCHC Auto (RBC) [Mass/Vol]Or dered By: Raul Quan on 07-01-2022 MCHC (RBC) [Mass/Vol] 33.3 g/dL 32.5-35.6 [facility] MCV Auto (RBC) [Entitic vol] Ordered By: Raul Quan on 07-01-2022 MCV (RBC) [Entitic vol] 90.7 fL 83.5-101 [facility] Monocytes Auto (Bld) [#/Vol] Ordered By: Raul Quan on 07-01-2022 Monocytes (Bld) [#/Vol] 0.9 10*3/uL 0.0-0.8 [facility] Monocytes/100 WBC Auto (Bld) Ordered By: Raul Quan on 07-01-2022 Monocytes/100 WBC (Bld) 11.1 % . [facility] Neutrophils Auto (Bld) [#/Vo l]Ordered By: Raul Quan on 07-01-2022 Neutrophils (Bld) [#/Vol] 5.7 10*3/uL 1.8-7.7 [facility] Neutrophils/100 WBC Auto (Bl d)Ordered By: Raul Quan on 07-01-2022 Neutrophils/100 WBC (Bld) 67.4 % . [facility] No Panel InformationOrdered By: Raul Quan on 07-01-2022 Estimated GFR (CKD-EPI) > 60.0 mL/Min [facility] Creatinine Clearance (Chem N/A [facility] Nucleated erythrocytes [Pres ence] in Blood by Automated countOrdered By: Raul Quan on 07-01-2022 Nucleated RBC Auto Ql (Bld) 0.0 /100{WBC} 0-0.5 [facility] Platelet mean volume Auto (B ld) [Entitic vol]Ordered By: Raul Quan on 07-01-2022 Platelet mean volume (Bld) [Entitic vol] 7.6 fL 6.6-10.1 [facility] Platelets Auto (Bld) [#/Vol] Ordered By: Raul Quan on 07-01-2022 Platelets (Bld) [#/Vol] 198 10*3/uL 150-450 [facility] Potassium [Moles/volume] in Serum or PlasmaOrdered By: Raul Quan on 07-01-2022 Potassium [Moles/Vol] 4.4 mmol/L 3.5-5.1 [facility] Protein [Mass/volume] in Ser um or PlasmaOrdered By: Raul Quan on 07-01-2022 Protein [Mass/Vol] 7.1 g/dL 6.4-8.9 [facility] RBC Auto (Bld) [#/Vol]Ordere d By: Raul Quan on 07-01-2022 RBC (Bld) [#/Vol] 4.01 10*6/uL 3.90-5.60 [facility] Serum or plasma albumin/glob ulin mass ratioOrdered By: Raul Quan on 07-01-2022 Albumin/Globulin [Mass ratio] 1.1 {ratio} [facility] Serum or plasma anion gap de terminationOrdered By: Raul Quan on 07-01-2022 Anion gap [Moles/Vol] 13.8 mmol/L 6.0-15.0 [facility] Sodium [Moles/volume] in Ser um or PlasmaOrdered By: Raulchristiana Quan on 07-01-2022 Sodium [Moles/Vol] 134 mmol/L 136-145 [facility] Urea nitrogen [Mass/volume] in Serum or PlasmaOrdered By: Raul Quan on 07-01-2022 Urea nitrogen [Mass/Vol] 17 mg/dL 7-25 [facility] WBC Auto (Bld) [#/Vol]Ordere d By: Raul Quan on 07-01-2022 WBC (Bld) [#/Vol] 8.5 10*3/uL 4.1-10.5 [facility] Patient Educationon 06-25-19 Patient Education Urology Hematuria, [...] these instructions at home: Medicines ? Take byqq-brt-hxknyug and prescription medicines only as told by [...] the blood stops without treatment. ? Take kjhy-tpn-zwftjdo and prescription medicines only as told by your health care provider. ? Drink enough fluid to keep your urine pale yellow. This information is not intended to replace advice given to you by your health care provider. Make sure you discuss any questions you have with your health care provider. Document Revised: 10/23/2020 Document Reviewed: 10/23/2020 [employer] Patient Education ? 2022 [employer] [facility] Screenson 06-24-2022 Screens [id number]#[id number]:127 [facility] Screens [id number]#[id number]:127 Normal [facility] Urology Office/Clinic Noteon [...] Urnls Dip Stick Auto w/o Microscopy POC 63935 Urology Procedure Order 4. Penile rash (R21: Rash and other nonspecific skin eruption) Pt states rash has completely cleared up after stopping Bactrim. Denies irritation. Head of penis is not red, but is discolored. Not bothersome. D/c use of cream. Resolved Ordered: Urology Procedure Order 5. ED (erectile dysfunction) (N52.9: Male erectile dysfunction, unspecified) (more content not included)... Normal [facility] Comment on above: Result Comment: Elec tronically Signed By: Mo LEIJA, Ivelisse Schreiber\.br\Date and Time Signed: 06/24/22 10:24 EDT RAD - CT Reporton 05-14-2022 RAD - CT Report [id number]#[id number]:127 Normal [facility] Creatinine (Bld) [Mass/Vol]O rdered By: Raul Quan on 05-11-2022 Creatinine [Mass/Vol] 0.9 mg/dL 0.6-1.3 [facility] Comment on above: ER/ESD physician is notified/shown all ISTAT results.Critical values may be confirmed by laboratory testing ifdeemed necessary by ER attending doctor. No Panel InformationOrdered By: Raul Quan on 05-11-2022 POC Estimated GFR > 60 [facility] Comment on above: GFR estimated refere nce range: According to KDOQI guidelines, <60 ml/min/1.73m2 is sufficient to diagnose a patient with chronic kidney disease. POC Estimated GFR Non- Amer > 60 [facility] URINALYSISOrdered By: Kirstie sanchez on 04-15-2022 Bacteria LM Ql (Urine sed) Trace /HPF Normal Trace/HPF FT UA Auto SS Bilirubin Ql (U) Negative [...] Interpretation Code Negative [facility] UA Auto SS [place].plasma/[place] .RBC (Bld) [Mass ratio] 21-30 /HPF Invalid [...] [facility] UA Auto SS Urobilinogen Qn (U) 0.1464969 {Nikki'U}/dL Normal 0.0 - 1.0 EU/dL [facility] [...] Interpretation Code Negative [facility] UA Auto SS [place].plasma/[place] .RBC (Bld) [Mass ratio] 4-20 /HPF Normal [...] [facility] UA Auto SS Urobilinogen Qn (U) 0.7302808 {Nikki'U}/dL Normal 0.0 - 1.0 EU/dL [facility] UA Auto SS WBC Auto Ql (U) 1+ *ABN* (02/11/22 10:38 AM) Invalid Interpretation Code Negative [facility] UA Auto SS WBC LM.HPF (Urine sed) [#/Area] 0-5 /HPF Normal 0-5/HPF [facility] UA Auto SS Basophils Auto (Bld) [#/Vol] Ordered By: Raul Quan on 02-05-2022 Basophils (Bld) [#/Vol] 0.1 10*3/uL 0.0-0.2 [facility] Basophils/100 WBC Auto (Bld) Ordered By: Raul Quan on 02-05-2022 Basophils/100 WBC (Bld) 0.6 % . [facility] Creatinine and Glomerular fi ltration rate.predicted panel (S/P/Bld)Ordered By: Raul Quan on 02-05-2022 Creatinine [Mass/Vol] 0.94 mg/dL 0.64-1.27 [facility] Eosinophils Auto (Bld) [#/Vo l]Ordered By: Raul Quan on 02-05-2022 Eosinophils (Bld) [#/Vol] 0.1 10*3/uL 0.0-0.45 [facility] Eosinophils/100 WBC Auto (Bl d)Ordered By: Raul Quan on 02-05-2022 Eosinophils/100 WBC (Bld) 0.7 % . [facility] Erythrocyte distribution wid th Auto (RBC) [Ratio]Ordered By: Raul Quan on 02-05-2022 Erythrocyte distribution width (RBC) [Ratio] 13.8 % 12.0-14.8 [facility] Estimated glomerular filtrat ion rate (GFR) non- AmericanOrdered By: Raul Quan on 02-05-2022 GFR/1.73 sq M.predicted among non-blacks MDRD (S/P/Bld) [Vol rate/Area] > 60 mL/Min [facility] Hematocrit Auto (Bld) [Volum e fraction]Ordered By: Raul Quan on 02-05-2022 Hematocrit (Bld) [Volume fraction] 34.6 % 38.8-50.0 [facility] Hemoglobin [Mass/volume] in BloodOrdered By: aRul Quan on 02-05-2022 Hemoglobin (Bld) [Mass/Vol] 11.4 g/dL 13.0-17.0 [facility] Leukocytes [#/volume] correc shyann for nucleated erythrocytes in Blood by Automated counOrdered By: Raul Quan on 02-05-2022 WBC corrected for nucl RBC Auto (Bld) [#/Vol] 10.3 10*3/uL 4.1-10.5 [facility] Lymphocytes Auto (Bld) [#/Vo l]Ordered By: Raul Quan on 02-05-2022 Lymphocytes (Bld) [#/Vol] 1.5 10*3/uL 1.00-4.8 [facility] Lymphocytes/100 WBC Auto (Bl d)Ordered By: Raul Quan on 02-05-2022 Lymphocytes/100 WBC (Bld) 14.4 % . [facility] MCH Auto (RBC) [Entitic mass ]Ordered By: Raul Quan on 02-05-2022 MCH (RBC) [Entitic mass] 30.1 pg 27.5-35.2 [facility] MCHC Auto (RBC) [Mass/Vol]Or dered By: Raul Quan on 02-05-2022 MCHC (RBC) [Mass/Vol] 32.9 g/dL 32.5-35.6 [facility] MCV Auto (RBC) [Entitic vol] Ordered By: Raul Quan on 02-05-2022 MCV (RBC) [Entitic vol] 91.6 fL 83.5-101 [facility] Monocytes Auto (Bld) [#/Vol] Ordered By: Raul Quan on 02-05-2022 Monocytes (Bld) [#/Vol] 1.5 10*3/uL 0.0-0.8 [facility] Monocytes/100 WBC Auto (Bld) Ordered By: Raul Quan on 02-05-2022 Monocytes/100 WBC (Bld) 14.8 % . [facility] Neutrophils Auto (Bld) [#/Vo l]Ordered By: Raul Quan on 02-05-2022 Neutrophils (Bld) [#/Vol] 7.1 10*3/uL 1.8-7.7 [facility] Neutrophils/100 WBC Auto (Bl d)Ordered By: Raul Quan on 02-05-2022 Neutrophils/100 WBC (Bld) 69.5 % . [facility] No Panel InformationOrdered By: Raul Quan on 02-05-2022 Estimated GFR () > 60 mL/Min [facility] Comment on above: GFR estimated refere nce range: According to KDOQI guidelines, <60 ml/min/1.73m2 is sufficient to diagnose a patient with chronic kidney disease. Pharmacy Creatinine Clearance (Chem 57.50 [facility] Nucleated erythrocytes [Pres ence] in Blood by Automated countOrdered By: Raul Quan on 02-05-2022 Nucleated RBC Auto Ql (Bld) 0.1 /100{WBC} 0-0.5 [facility] Platelet mean volume Auto (B ld) [Entitic vol]Ordered By: Raul Quan on 02-05-2022 Platelet mean volume (Bld) [Entitic vol] 7.9 fL 6.6-10.1 [facility] Platelets Auto (Bld) [#/Vol] Ordered By: Raul Quan on 02-05-2022 Platelets (Bld) [#/Vol] 142 10*3/uL 150-450 [facility] Comment on above: Delta: 198 on 08 RBC Auto (Bld) [#/Vol]Ordere d By: Raul Quan on 02-05-2022 RBC (Bld) [#/Vol] 3.77 10*6/uL 3.90-5.60 [facility] Serum or plasma anion gap de terminationOrdered By: Raul Quan on 02-05-2022 Anion gap [Moles/Vol] 10.4 mmol/L 6.0-15.0 [facility] Serum or plasma calcium richy urement (mass/volume)Ordered By: Raul Quan on 02-05-2022 Calcium [Mass/Vol] 8.4 mg/dL 8.2-10.2 [facility] Serum or plasma chloride young surement (moles/volume)Ordered By: Raul Quan on 02-05-2022 Chloride [Moles/Vol] 101 mmol/L 95-114 [facility] Serum or plasma glucose richy urement (mass/volume)Ordered By: Raul Quan on 02-05-2022 Glucose [Mass/Vol] 109 mg/dL 70-100 [facility] Comment on above: ADA recommended refe rence rangeRandom Glucose Reference Range is dependent on time and content of last meal. Glucose of more than 200 mg/dL in a nonstressed, ambulatory subject supports the diagnosis of Diabetes Mellitus. Serum or plasma potassium me asurement (moles/volume)Ordered By: Raul Quan on 02-05-2022 Potassium [Moles/Vol] 4.6 mmol/L 3.5-5.1 [facility] Serum or plasma sodium measu rement (moles/volume)Ordered By: Raul Quan on 02-05-2022 Sodium [Moles/Vol] 135 mmol/L 136-146 [facility] Serum or plasma total carbon dioxide measurement (moles/volume)Ordered By: Raul Quan on 02-05-2022 CO2 [Moles/Vol] 28.2 mmol/L 22.0-30.0 [facility] Serum or plasma urea nitroge n measurement (mass/volume)Ordered By: Raul Quan on 02-05-2022 Urea nitrogen [Mass/Vol] 11 mg/dL 9-23 [facility] WBC Auto (Bld) [#/Vol]Ordere d By: Raul Quan on 02-05-2022 WBC (Bld) [#/Vol] 10.3 10*3/uL 4.1-10.5 [facility] Covid-19 PCR (CVDTBH)on 01-07 SARS-CoV-2 (COVID-19) RNA JESSIE+probe Ql (Unsp [...] for this test is supported by the [place] of Health and Human Service's (HHS's) declaration [...] SARS-CoV-2. Performed By: #### C VDTB #### [facility] [address] [place] [address] Dr. Jodi Oglesby CBC AUTO DIFFon 12-08-2021 BASO # 0.1 103/ul Normal 0.0-0.1 [facility] Comment on above: Performed By: #### D ATA1C #### [facility] [address] [place] [address] Dr. Jodi Oglesby Basophils/100 WBC (Bld) 0.5 % Normal 0.2-2.0 [facility] Comment on above: Performed By: #### D ATA1C #### [facility] [address] [place] [address] Dr. Jodi Oglesby EO # 0.1 103/ul Normal 0.0-0.7 [facility] Comment on above: Performed By: #### D ATA1C #### [facility] [address] [place] [address] Dr. Jodi Oglesby Eosinophils/100 WBC (Bld) 1.4 % Normal 0.9-7.0 [facility] Comment on above: Performed By: #### D ATA1C #### [facility] [address] [place] [address] Dr. Jodi Oglesby Erythrocyte distribution width (RBC) [Ratio] 13.0 % Normal 11.0-15.0 [facility] Comment on above: Performed By: #### D ATA1C #### [facility] [address] [address] [address] Jodi Oglesby Hematocrit (Bld) [Volume fraction] 36.1 % Critically low 42.0-54.0 [facility] Comment on above: Performed By: #### D ATA1C #### [facility] [address] [address] [address] Jodi Oglesby Hemoglobin (Bld) [Mass/Vol] 11.2 g/dL Critically low 14.0-18.0 [facility] Comment on above: Performed By: #### D ATA1C #### [facility] [address] [address] [address] Jodi Oglesby IG # 0.04 10e3/ul Critically high 0.00-0.03 [facility] Comment on above: Performed By: #### D ATA1C #### [facility] [address] [place] [address] Dr. Jodi Oglesby IG % 0.4 % Normal 0.0-0.5 [facility] Comment on above: Performed By: #### D ATA1C #### [facility] [address] [address] [address] Jodi Oglesby LYMPH # 1.8 103/ul Normal 1.2-3.8 [facility] Comment on above: Performed By: #### D ATA1C #### [facility] [address] [place] [address] Dr. Jodi Oglesby Lymphocytes/100 WBC (Bld) 17.2 % Critically low 20.5-60.0 [facility] Comment on above: Performed By: #### D ATA1C #### [facility] [address] [address] [address] Jodi Oglesby MANUAL DIFF REQ NO Normal [facility] Comment on above: Performed By: #### D ATA1C #### [facility] [address] [place] [address] Dr. Jodi Oglesby MCH (RBC) [Entitic mass] 30.4 pg Normal 25.9-34.0 [facility] Comment on above: Performed By: #### D ATA1C #### [facility] [address] [address] [address] Jodi Oglesby MCHC (RBC) [Mass/Vol] 31.0 g/dL Normal 29.9-35.2 [facility] Comment on above: Performed By: #### D ATA1C #### [facility] [address] [address] [address] Jodi Oglesby MCV (RBC) [Entitic vol] 98.1 fL Critically high 80.0-94.0 [facility] Comment on above: Performed By: #### D ATA1C #### [facility] [address] [address] [address] Jodi Oglesby MONO # 1.0 103/ul Critically high 0.3-0.8 [facility] Comment on above: Performed By: #### D ATA1C #### [facility] [address] [address] [address] Jodi Oglesby Monocytes/100 WBC (Bld) 9.8 % Normal 1.7-12.0 [facility] Comment on above: Performed By: #### D ATA1C #### [facility] [address] [address] [address] Jodi Oglesby NEUT # 7.3 103/ul Critically high 1.4-6.5 [facility] Comment on above: Performed By: #### D ATA1C #### [facility] [address] [address] [address] Jodi Oglesby Neutrophils/100 WBC (Bld) 70.7 % Normal 43.0-75.0 [facility] Comment on above: Performed By: #### D ATA1C #### [facility] [address] [address] [address] Jodi Oglesby Platelet mean volume (Bld) [Entitic vol] 9.1 fL Critically low 9.5-13.5 [facility] Comment on above: Performed By: #### D ATA1C #### [facility] [address] [address] [address] Jodi Oglesby PLT 214 103/ul Normal 150-450 [facility] Comment on above: Performed By: #### D ATA1C #### [facility] [address] [address] [address] Jodi Oglesby RBC 3.68 106/ul Critically low 4.70-6.10 [facility] Comment on above: Performed By: #### D ATA1C #### [facility] [address] [place] [address] Dr. Jodi Oglesby WBC 10.3 103/ul Normal 4.0-11.0 [facility] Comment on above: Performed By: #### D ATA1C #### [facility] [address] [place] [address] Dr. Jodi Oglesby PROF CHEM 8 (BAS METB)on Anion gap [Moles/Vol] 9.7 mmol/L Normal [facility] Comment on above: Performed By: #### C BC #### [facility] [address] [place] [address] Dr. Jodi Oglesby Calcium [Mass/Vol] 8.9 mg/dL Normal 8.5-10.1 [facility] Comment on above: Performed By: #### C BC #### [facility] [address] [place] [address] Dr. Jodi Oglesby Chloride [Moles/Vol] 102 mmol/L Normal 98-107 [facility] Comment on above: Performed By: #### C BC #### [facility] [address] [place] [address] Dr. Jodi gOlesby CO2 [Moles/Vol] 31.0 mmol/L Normal 21.0-32.0 [facility] Comment on above: Performed By: #### C BC #### [facility] [address] [place] [address] Dr. Jodi Oglesby Creatinine [Mass/Vol] 0.85 mg/dL Normal 0.70-1.30 [facility] Comment on above: Performed By: #### C BC #### [facility] [address] [place] [address] Dr. Jodi Oglesby EGFR-AF HUNGARIAN >60 Normal >=60 [facility] Comment on above: Performed By: #### C BC #### [facility] [address] [address] [address] Jodi Oglesby EGFR-NON AF HUNGARIAN >60 Normal >=60 [facility] Comment on above: Performed By: #### C BC #### [facility] [address] [address] [address] Jodi Oglesby Glucose [Mass/Vol] 106 mg/dL Normal 74-106 [facility] Comment on above: Performed By: #### C BC #### [facility] [address] [address] [address] Jodi Oglesby Potassium [Moles/Vol] 4.7 mmol/L Normal 3.5-5.1 [facility] Comment on above: Performed By: #### C BC #### [facility] [address] [place] [address] Dr. Jodi Oglesby Sodium [Moles/Vol] 138 mmol/L Normal 136-145 [facility] Comment on above: Performed By: #### C BC #### [facility] [address] [address] [address] Jodi Oglesby Urea nitrogen [Mass/Vol] 14.0 mg/dL Normal 7.0-18.0 [facility] Comment on above: Performed By: #### C BC #### [facility] [address] [place] [address] Dr. Jodi Oglesby Urea nitrogen/Creatinine [Mass ratio] 16.5 mg/mg Normal [facility] Comment on above: Performed By: #### C BC #### [facility] [address] [place] [address] Dr. Jodi Oglesby XR CHEST 2 Von [...] [facility] Covid-19 PCR (CVDTB)on 11-07 SARS-CoV-2 (COVID-19) RNA [...] for this test is supported by the [place] of Health and Human Service's (HHS's) declaration [...] VDTBH #### [facility] [address] [place] [address] Dr. Jodi Oglesby CBC AUTO DIFFon 11-11-2021 BASO # 0.1 103/ul Normal 0.0-0.1 [facility] Comment on above: Performed By: #### C BC #### [facility] [address] [place] [address] Dr. Jodi Oglesby Basophils/100 WBC (Bld) 0.5 % Normal 0.2-2.0 [facility] Comment on above: Performed By: #### C BC #### [facility] [address] [place] [address] Dr. Jodi Oglesby EO # 0.2 103/ul Normal 0.0-0.7 [facility] Comment on above: Performed By: #### C BC #### [facility] [address] [place] [address] Dr. Jodi Oglesby Eosinophils/100 WBC (Bld) 1.9 % Normal 0.9-7.0 [facility] Comment on above: Performed By: #### C BC #### [facility] [address] [place] [address] Dr. Jodi Oglesby Erythrocyte distribution width (RBC) [Ratio] 13.6 % Normal 11.0-15.0 [facility] Comment on above: Performed By: #### C BC #### [facility] [address] [place] [address] Dr. Jodi Oglesby Hematocrit (Bld) [Volume fraction] 28.6 % Critically low 42.0-54.0 [facility] Comment on above: Performed By: #### C BC #### [facility] [address] [place] [address] Dr. Jodi Oglesby Hemoglobin (Bld) [Mass/Vol] 9.4 g/dL Critically low 14.0-18.0 [facility] Comment on above: Performed By: #### C BC #### [facility] [address] [place] [address] Dr. Jodi Oglesby IG # 0.08 10e3/ul Critically high 0.00-0.03 [facility] Comment on above: Performed By: #### C BC #### [facility] [address] [place] [address] Dr. Jodi Oglesby IG % 0.8 % Critically high 0.0-0.5 [facility] Comment on above: Performed By: #### C BC #### [facility] [address] [place] [address] Dr. Jodi Oglesby LYMPH # 1.3 103/ul Normal 1.2-3.8 [facility] Comment on above: Performed By: #### C BC #### [facility] [address] [place] [address] Dr. Jodi Oglesby Lymphocytes/100 WBC (Bld) 13.0 % Critically low 20.5-60.0 [facility] Comment on above: Performed By: #### C BC #### [facility] [address] [place] [address] Dr. Jodi Oglesby MANUAL DIFF REQ NO Normal [facility] Comment on above: Performed By: #### C BC #### [facility] [address] [place] [address] Dr. Jodi Oglesby MCH (RBC) [Entitic mass] 31.5 pg Normal 25.9-34.0 [facility] Comment on above: Performed By: #### C BC #### [facility] [address] [place] [address] Dr. Jodi Oglesby MCHC (RBC) [Mass/Vol] 32.9 g/dL Normal 29.9-35.2 [facility] Comment on above: Performed By: #### C BC #### [facility] [address] [place] [address] Dr. Jodi Oglesby MCV (RBC) [Entitic vol] 96.0 fL Critically high 80.0-94.0 [facility] Comment on above: Performed By: #### C BC #### [facility] [address] [place] [address] Dr. Jodi Oglesby MONO # 1.1 103/ul Critically high 0.3-0.8 [facility] Comment on above: Performed By: #### C BC #### [facility] [address] [place] [address] Dr. Jodi Oglesby Monocytes/100 WBC (Bld) 10.7 % Normal 1.7-12.0 [facility] Comment on above: Performed By: #### C BC #### [facility] [address] [place] [address] Dr. Jodi Oglesby NEUT # 7.4 103/ul Critically high 1.4-6.5 [facility] Comment on above: Performed By: #### C BC #### [facility] [address] [place] [address] Dr. Jodi Oglesby Neutrophils/100 WBC (Bld) 73.1 % Normal 43.0-75.0 [facility] Comment on above: Performed By: #### C BC #### [facility] [address] [place] [address] Dr. Jodi Oglesby Platelet mean volume (Bld) [Entitic vol] 9.3 fL Critically low 9.5-13.5 [facility] Comment on above: Performed By: #### C BC #### [facility] [address] [place] [address] Dr. Jodi Oglesby PLT 288 103/ul Normal 150-450 [facility] Comment on above: Performed By: #### C BC #### [facility] [address] [place] [address] Dr. Jodi Oglesby RBC 2.98 106/ul Critically low 4.70-6.10 [facility] Comment on above: Performed By: #### C BC #### [facility] [address] [place] [address] Dr. Jodi Oglesby WBC 10.1 103/ul Normal 4.0-11.0 [facility] Comment on above: Performed By: #### C BC #### [facility] [address] [place] [address] ABD/PELVIS WO CONon [...] [facility] Covid-19 PCR ([facility])on SARS-CoV-2 (COVID-19) RNA JESSIE+probe Ql (Unsp [...] for this test is supported by the [place] of Health and Human Service's declaration that [...] BC #### [facility] [address] [place] [address] Dr. Jodi Oglesby OCC BLD IMMUNO SCREENon OCCULT BLOOD Negative Normal NEGATIVE [facility] Comment on above: Performed By: #### D ATA1C #### [facility] [address] [place] [address] Dr. Jodi Oglesby PROF 14(COMP METB)on 022 Albumin [Mass/Vol] 3.0 g/dL Critically low 3.4-5.0 [facility] Comment on above: Performed By: #### C MP #### [facility] [address] [place] [address] Dr. Jodi Oglesby Albumin/Globulin [Mass ratio] 0.8 {ratio} Normal [facility] Comment on above: Performed By: #### C MP #### [facility] [address] [place] [address] Dr. Jodi Oglesby ALP [Catalytic activity/Vol] 126 U/L Critically high 46-116 [facility] Comment on above: Performed By: #### C MP #### [facility] [address] [place] [address] Dr. Jodi Oglesby ALT [Catalytic activity/Vol] 22 U/L Normal 16-63 [facility] Comment on above: Performed By: #### C MP #### [facility] [address] [place] [address] Dr. Jodi Oglesby Anion gap [Moles/Vol] 16.7 mmol/L Normal Th [facility] Comment on above: Performed By: #### C MP #### [facility] [address] [place] [address] Dr. Jodi Oglesby AST [Catalytic activity/Vol] 23 U/L Normal 15-37 [facility] Comment on above: Performed By: #### C MP #### [facility] [address] [address] [address] Jodi Oglesby Bilirubin [Mass/Vol] 0.6 mg/dL Normal 0.2-1.0 [facility] Comment on above: Performed By: #### C MP #### [facility] [address] [place] [address] Dr. Jodi Oglesby Calcium [Mass/Vol] 8.5 mg/dL Normal 8.5-10.1 [facility] Comment on above: Performed By: #### C MP #### [facility] [address] [place] [address] Dr. Jodi Oglesby Chloride [Moles/Vol] 99 mmol/L Normal 98-107 [facility] Comment on above: Performed By: #### C MP #### [facility] [address] [place] [address] Dr. Jodi Oglesby CO2 [Moles/Vol] 27.4 mmol/L Normal 21.0-32.0 [facility] Comment on above: Performed By: #### C MP #### [facility] [address] [place] [address] Dr. Jodi Oglesby Creatinine [Mass/Vol] 0.80 mg/dL Normal 0.70-1.30 [facility] Comment on above: Performed By: #### C MP #### [facility] [address] [place] [address] Dr. Jodi Oglesby EGFR-AF HUNGARIAN >60 Normal >=60 [facility] Comment on above: Performed By: #### C MP #### [facility] [address] [place] [address] Dr. Jodi Oglesby EGFR-NON AF HUNGARIAN >60 Normal >=60 [facility] Comment on above: Performed By: #### C MP #### [facility] [address] [address] [address] Jodi Oglesby Globulin (S) [Mass/Vol] 3.9 g/dL Normal [facility] Comment on above: Performed By: #### C MP #### [facility] [address] [address] [address] Jodi Oglesby Glucose [Mass/Vol] 116 mg/dL Critically high 74-106 T [facility] Comment on above: Performed By: #### C MP #### [facility] [address] [address] [address] Jodi Oglesby Potassium [Moles/Vol] 4.1 mmol/L Normal 3.5-5.1 [facility] Comment on above: Performed By: #### C MP #### [facility] [address] [address] [address] Jodi Oglesby Protein [Mass/Vol] 6.9 g/dL Normal 6.4-8.2 [facility] Comment on above: Performed By: #### C MP #### [facility] [address] [address] [address] Jodi Oglesby Sodium [Moles/Vol] 129 mmol/L Critically low 136-145 Th [facility] Comment on above: Performed By: #### C MP #### [facility] [address] [address] [address] Jodi Oglesby Urea nitrogen [Mass/Vol] 15.0 mg/dL Normal 7.0-18.0 [facility] Comment on above: Performed By: #### C MP #### [facility] [address] [address] [address] Jodi Oglesby Urea nitrogen/Creatinine [Mass ratio] 18.8 mg/mg Normal [facility] Comment on above: Performed By: #### C MP #### [facility] [address] [address] [address] Jodi Oglesby PROTIMEon 11-11-2021 INR Coag (PPP) [Relative time] 1.01 {INR} Normal [facility] Comment on above: Performed By: #### P TT, PT #### [facility] [address] [place] [address] Dr. Jodi Oglesby INR GUIDELINES SEE BELOW Normal [facility] Comment on above: Result Comment: ESHA RED INR: 2.0 - 3.0 CONDITIONS NOT LISTED BELOW 2.5 - 3.5 FOR PROSTHETIC HEART VALVE REPLACEMENT 2.5 - 3.5 RECURRENT THROMBOSIS Performed By: #### P TT, PT #### [facility] [address] [place] [address] Dr. Jodi Oglesby PT Coag (PPP) [Time] 10.9 s Normal 9.0-11.6 [facility] Comment on above: Performed By: #### P TT, PT #### [facility] [address] [place] [address] Dr. Jodi Oglesby PTTon 11-11-2021 aPTT Coag (Bld) [Time] 25.4 s Normal 22.3-36.2 [facility] Comment on above: Performed By: #### P TT, PT #### [facility] [address] [place] [address] Dr. Jodi Oglesby CBC AUTO DIFFon 10-26-2021 BASO # 0.0 103/ul Normal 0.0-0.1 [facility] Comment on above: Performed By: #### D ATA1C #### [facility] [address] [place] [address] Dr. Jodi Oglesby Basophils/100 WBC (Bld) 0.3 % Normal 0.2-2.0 [facility] Comment on above: Performed By: #### D ATA1C #### [facility] [address] [place] [address] Dr. Jodi Oglesby EO # 0.1 103/ul Normal 0.0-0.7 [facility] Comment on above: Performed By: #### D ATA1C #### [facility] [address] [place] [address] Dr. Jodi Oglesby Eosinophils/100 WBC (Bld) 0.5 % Critically low 0.9-7.0 [facility] Comment on above: Performed By: #### D ATA1C #### [facility] [address] [place] [address] Dr. Jodi Oglesby Erythrocyte distribution width (RBC) [Ratio] 12.4 % Normal 11.0-15.0 [facility] Comment on above: Performed By: #### D ATA1C #### [facility] [address] [place] [address] Dr. Jodi Oglesby Hematocrit (Bld) [Volume fraction] 39.5 % Critically low 42.0-54.0 [facility] Comment on above: Performed By: #### D ATA1C #### [facility] [address] [place] [address] Dr. Jodi Oglesby Hemoglobin (Bld) [Mass/Vol] 12.8 g/dL Critically low 14.0-18.0 [facility] Comment on above: Performed By: #### Chavez ATA1C #### [facility] [address] [place] [address] Dr. Jodi Oglesby IG # 0.07 10e3/ul Critically high 0.00-0.03 [facility] Comment on above: Performed By: #### Chavez ATA1C #### [facility] [address] [place] [address] Dr. Jodi Oglesby IG % 0.5 % Normal 0.0-0.5 [facility] Comment on above: Performed By: #### D ATA1C #### [facility] [address] [place] [address] Dr. Jodi Oglesby LYMPH # 0.9 103/ul Critically low 1.2-3.8 [facility] Comment on above: Performed By: #### D ATA1C #### [facility] [address] [place] [address] Dr. Jodi Oglesby Lymphocytes/100 WBC (Bld) 6.3 % Critically low 20.5-60.0 [facility] Comment on above: Performed By: #### D ATA1C #### [facility] [address] [place] [address] Dr. Jodi Oglesby MANUAL DIFF REQ NO Normal [facility] Comment on above: Performed By: #### D ATA1C #### [facility] [address] [address] [address] Jodi Oglesby MCH (RBC) [Entitic mass] 30.8 pg Normal 25.9-34.0 [facility] Comment on above: Performed By: #### D ATA1C #### [facility] [address] [address] [address] Jodi Oglesby MCHC (RBC) [Mass/Vol] 32.4 g/dL Normal 29.9-35.2 [facility] Comment on above: Performed By: #### D ATA1C #### [facility] [address] [address] [address] Jodi Oglesby MCV (RBC) [Entitic vol] 95.2 fL Critically high 80.0-94.0 [facility] Comment on above: Performed By: #### D ATA1C #### [facility] [address] [place] [address] Dr. Jodi Oglesby MONO # 0.9 103/ul Critically high 0.3-0.8 [facility] Comment on above: Performed By: #### D ATA1C #### [facility] [address] [address] [address] Jodi Oglesby Monocytes/100 WBC (Bld) 6.2 % Normal 1.7-12.0 [facility] Comment on above: Performed By: #### D ATA1C #### [facility] [address] [address] [address] Jodi Olgesby NEUT # 12.8 103/ul Critically high 1.4-6.5 [facility] Comment on above: Performed By: #### D ATA1C #### [facility] [address] [address] [address] Jodi Oglesby Neutrophils/100 WBC (Bld) 86.2 % Critically high 43.0-75.0 [facility] Comment on above: Performed By: #### D ATA1C #### [facility] [address] [place] [address] Dr. Jodi Oglesby Platelet mean volume (Bld) [Entitic vol] 9.4 fL Critically low 9.5-13.5 [facility] Comment on above: Performed By: #### D ATA1C #### [facility] [address] [place], [place] [address] Dr. Jodi Oglesby PLT 169 103/ul Normal 150-450 [facility] Comment on above: Performed By: #### D ATA1C #### [facility] [address] [place], [place] [address] Dr. Jodi Oglesby RBC 4.15 106/ul Critically low 4.70-6.10 [facility] Comment on above: Performed By: #### D ATA1C #### [facility] [address] [place], [place] [address] Dr. Jodi Oglesby WBC 14.8 103/ul Critically high 4.0-11.0 [facility] Comment on above: Performed By: #### D ATA1C #### [facility] [address] [place], [place] [address] CHEST WO CONon [...] suspicious airspace disease. Electronically authenticated by: NICOLE MENDEZ Date: 2021-10-26 17:38 Normal [facility] Covid-19 PCR (CVDTB)on 10-07 SARS-CoV-2 (COVID-19) RNA [...] for this test is supported by the [place] of Health and Human Service's declaration that [...] ATA1C #### [facility] [address] [place] [address] Dr. Jodi Oglesby PROF CHEM 8 (BAS METB)on Anion gap [Moles/Vol] 11.7 mmol/L Normal [facility] Comment on above: Performed By: #### C BC #### [facility] [address] [address] [address] Jodi Oglesby Calcium [Mass/Vol] 9.2 mg/dL Normal 8.5-10.1 [facility] Comment on above: Performed By: #### C BC #### [facility] [address] [place] [address] Dr. Jodi Oglesby Chloride [Moles/Vol] 101 mmol/L Normal 98-107 [facility] Comment on above: Performed By: #### C BC #### [facility] [address] [address] [address] Jodi Oglesby CO2 [Moles/Vol] 27.6 mmol/L Normal 21.0-32.0 [facility] Comment on above: Performed By: #### C BC #### [facility] [address] [address] [address] Jodi Oglesby Creatinine [Mass/Vol] 0.98 mg/dL Normal 0.70-1.30 [facility] Comment on above: Performed By: #### C BC #### [facility] [address] [address] [address] Jodi Oglesby EGFR-AF HUNGARIAN >60 Normal >=60 [facility] Comment on above: Performed By: #### C BC #### [facility] [address] [place] [address] Dr. Jodi Oglesby EGFR-NON AF HUNGARIAN >60 Normal >=60 [facility] Comment on above: Performed By: #### C BC #### [facility] [address] [place] [address] Dr. Jodi Oglesby Glucose [Mass/Vol] 119 mg/dL Critically high 74-106 T [facility] Comment on above: Performed By: #### C BC #### [facility] [address] [place] [address] Dr. Jodi Oglesby Potassium [Moles/Vol] 4.3 mmol/L Normal 3.5-5.1 [facility] Comment on above: Performed By: #### C BC #### [facility] [address] [place] [address] Dr. Jodi Oglesby Sodium [Moles/Vol] 136 mmol/L Normal 136-145 [facility] Comment on above: Performed By: #### C BC #### [facility] [address] [place] [address] Dr. Jodi Oglesby Urea nitrogen [Mass/Vol] 15.0 mg/dL Normal 7.0-18.0 [facility] Comment on above: Performed By: #### C BC #### [facility] [address] [place], [place] [address] Dr. Jodi Oglesby Urea nitrogen/Creatinine [Mass ratio] 15.3 mg/mg Normal [facility] Comment on above: Performed By: #### C #### [facility] [address] [address] [address] Jodi Oglesby XR CLAVICLE RTon 10-26-2021 [...] acromioclavicular osteoarthrosis. 3. Osteopenia. Electronically authenticated by: JANE ALDANA Date: 2021-10-26 15:37 Normal [facility] XR ELBOW RT MIN 3 VIEWSon XR [...] by: CHARLES ALEJANDRA Date: 2021-10-26 15:40 Normal [facility] CARDIAC STRESS/REST INJE CTIONon 10-21-[address] [facility] CARDIAC STRESS/REST INJECTION Patient Name: CHICO BAKER STUDY: MYOCARDIAL PERFUSION STRESS TEST WITH LEXISCAN Performing facility: [facility], [address] [place] [address], [address], [place] [address] [facility] Provider: Adilene Harrington MD, [facility] PCP: Dr. Jori Dunham Supervising provider: Adilene Harrington MD, [facility] INDICATION: AAA Pre-operative risk assessment for AAA scheduled at [facility] on TBD. HISTORY: Gender: M; Age: 81 y/o ; Height: 0 cm; Weight: 0 kg. HTN; Carotid disease PAD AAA Denies smoking. COMPARISON: Previous nuclear testing completed at [facility]. Previous echo testing completed on 2020 at [facility]. ACCESSION NUMBER(S): [id number]; [id number]; [id number] ORDERING CLINICIAN: JUDAH HARRINGTON TECHNIQUE: ONE DAY [...] Electronically signed by: ALL HUDSON MD Normal [facility] No Panel Informationon 10-21 Normal -[facility] Heart-[address] [place] Work Phone: COVID-19 Positive/NegativeOr dered By: Raul Quan on 10-13-2021 SARS-CoV-2 (COVID-19) N gene JESSIE+probe Ql (Resp) Negative Negative [facility] Comment on above: Testing for SARS-CoV -2 by RT-PCR This test was developed and its performance characteristics determined by [employer] and validated at the [facility]. This test has not been FDA cleared [...] 10-06-2021 Basophils (Bld) [#/Vol] 0.0 10*3/uL 0.0-0.2 [facility] Basophils/100 WBC Auto (Bld) Ordered By: Raul Quan on 10-06-2021 Basophils/100 WBC (Bld) 0.7 % . [facility] Blood hemoglobin measurement (mass/volume)Ordered By: Raul Quan on 10-06-2021 Hemoglobin (Bld) [Mass/Vol] 13.1 g/dL 13.0-17.0 [facility] Blood leukocytes automated c ount (number/volume)Ordered By: Raul Quan on 10-06-2021 WBC (Bld) [#/Vol] 5.2 10*3/uL 4.5-11.0 [facility] Creatinine and Glomerular fi ltration rate.predicted panel (S/P/Bld)Ordered By: Raul Quan on 10-06-2021 Creatinine [Mass/Vol] 0.98 mg/dL 0.64-1.27 [facility] Eosinophils Auto (Bld) [#/Vo l]Ordered By: Raul Quan on 10-06-2021 Eosinophils (Bld) [#/Vol] 0.1 10*3/uL 0.0-0.45 [facility] Eosinophils/100 WBC Auto (Bl d)Ordered By: Raul Quan on 10-06-2021 Eosinophils/100 WBC (Bld) 1.3 % . [facility] Erythrocyte distribution wid th Auto (RBC) [Ratio]Ordered By: Raul Quan on 10-06-2021 Erythrocyte distribution width (RBC) [Ratio] 13.3 % 12.0-14.8 [facility] Estimated glomerular filtrat ion rate (GFR) non- AmericanOrdered By: Raul Quan on 10-06-2021 GFR/1.73 sq M.predicted among non-blacks MDRD (S/P/Bld) [Vol rate/Area] > 60 mL/Min [facility] Hematocrit Auto (Bld) [Volum e fraction]Ordered By: Raul Quan on 10-06-2021 Hematocrit (Bld) [Volume fraction] 40.4 % 38.8-50.0 [facility] Laboratory - Hematology and Cell countsOrdered By: Raul Quan on 10-06-2021 Nucleated RBC/100 WBC (Bld) [Ratio] 0.0 % 0-0.5 [facility] Lymphocytes Auto (Bld) [#/Vo l]Ordered By: Raul Quan on 10-06-2021 Lymphocytes (Bld) [#/Vol] 1.0 10*3/uL 1.00-4.8 [facility] Lymphocytes/100 WBC Auto (Bl d)Ordered By: Raul Quan on 10-06-2021 Lymphocytes/100 WBC (Bld) 18.4 % . [facility] MCH Auto (RBC) [Entitic mass ]Ordered By: Raul Quan on 10-06-2021 MCH (RBC) [Entitic mass] 30.9 pg 27.5-35.2 [facility] MCHC Auto (RBC) [Mass/Vol]Or dered By: Raul Quan on 10-06-2021 MCHC (RBC) [Mass/Vol] 32.5 g/dL 32.5-35.6 [facility] MCV Auto (RBC) [Entitic vol] Ordered By: Raul Quan on 10-06-2021 MCV (RBC) [Entitic vol] 95.2 fL 83.5-101 [facility] Monocytes Auto (Bld) [#/Vol] Ordered By: Raul Quan on 10-06-2021 Monocytes (Bld) [#/Vol] 0.6 10*3/uL 0.0-0.8 [facility] Monocytes/100 WBC Auto (Bld) Ordered By: Raul Quan on 10-06-2021 Monocytes/100 WBC (Bld) 12.0 % . [facility] Neutrophils Auto (Bld) [#/Vo l]Ordered By: Raul Quan on 10-06-2021 Neutrophils (Bld) [#/Vol] 3.5 10*3/uL 1.8-7.7 [facility] Neutrophils/100 WBC Auto (Bl d)Ordered By: Raul Quan on 10-06-2021 Neutrophils/100 WBC (Bld) 67.6 % . [facility] No Panel InformationOrdered By: Raul Quan on 10-06-2021 Estimated GFR () > 60 mL/Min [facility] Comment on above: GFR estimated refere nce range: According to KDOQI guidelines, <60 ml/min/1.73m2 is sufficient to diagnose a patient with chronic kidney disease. Pharmacy Creatinine Clearance (Chem N/A [facility] Platelet mean volume Auto (B ld) [Entitic vol]Ordered By: Raul Quan on 10-06-2021 Platelet mean volume (Bld) [Entitic vol] 8.1 fL 6.6-10.1 [facility] Platelets Auto (Bld) [#/Vol] Ordered By: Raul Quan on 10-06-2021 Platelets (Bld) [#/Vol] 185 10*3/uL 150-450 [facility] RBC Auto (Bld) [#/Vol]Ordere d By: Raul Quan on 10-06-2021 RBC (Bld) [#/Vol] 4.25 10*6/uL 3.90-5.60 [facility] Serum or plasma calcium richy urement (mass/volume)Ordered By: Raul Quan on 10-06-2021 Calcium [Mass/Vol] 9.0 mg/dL 8.2-10.2 [facility] Serum or plasma chloride young surement (moles/volume)Ordered By: Raul Quan on 10-06-2021 Chloride [Moles/Vol] 101 mmol/L 95-114 [facility] Serum or plasma glucose richy urement (mass/volume)Ordered By: Raul Quan on 10-06-2021 Glucose [Mass/Vol] 187 mg/dL 70-100 [facility] Comment on above: ADA recommended refe rence range Random Glucose Reference Range is dependent on time and content of last meal. Glucose of more than 200 mg/dL in a nonstressed, ambulatory subject supports the diagnosis of Diabetes Mellitus. Serum or plasma potassium me asurement (moles/volume)Ordered By: Raul Quan on 10-06-2021 Potassium [Moles/Vol] 4.0 mmol/L 3.5-5.1 [facility] Serum or plasma sodium measu rement (moles/volume)Ordered By: Raul Quan on 10-06-2021 Sodium [Moles/Vol] 135 mmol/L 136-146 [facility] Serum or plasma total carbon dioxide measurement (moles/volume)Ordered By: Raul Quan on 10-06-2021 CO2 [Moles/Vol] 25.1 mmol/L 22.0-30.0 [facility] Serum or plasma urea nitroge n measurement (mass/volume)Ordered By: Raul Quan on 10-06-2021 Urea nitrogen [Mass/Vol] 13 mg/dL 11-28 [facility] CBC AUTO DIFFon 09-22-2021 BASO # 0.0 103/ul Normal 0.0-0.1 [facility] Comment on above: Performed By: #### C BC #### [facility] [address] [address] [address] Jodi Oglesby Basophils/100 WBC (Bld) 0.3 % Normal 0.2-2.0 [facility] Comment on above: Performed By: #### C BC #### [facility] [address] [address] [address] Jodi Oglesby EO # 0.1 103/ul Normal 0.0-0.7 [facility] Comment on above: Performed By: #### C BC #### [facility] [address] [address] [address] Jodi Oglesby Eosinophils/100 WBC (Bld) 0.8 % Critically low 0.9-7.0 [facility] Comment on above: Performed By: #### C BC #### [facility] [address] [address] [address] Jodi Oglesby Erythrocyte distribution width (RBC) [Ratio] 12.5 % Normal 11.0-15.0 [facility] Comment on above: Performed By: #### C BC #### [facility] [address] [place] [address] Dr. Jodi Oglesby Hematocrit (Bld) [Volume fraction] 43.6 % Normal 42.0-54.0 [facility] Comment on above: Performed By: #### C BC #### [facility] [address] [place] [address] Dr. Jodi Oglesby Hemoglobin (Bld) [Mass/Vol] 14.1 g/dL Normal 14.0-18.0 [facility] Comment on above: Performed By: #### C BC #### [facility] [address] [place] [address] Dr. Jodi Oglesby IG # 0.03 10e3/ul Normal 0.00-0.03 [facility] Comment on above: Performed By: #### C BC #### [facility] [address] [place] [address] Dr. Jodi Oglesby IG % 0.3 % Normal 0.0-0.5 [facility] Comment on above: Performed By: #### C BC #### [facility] [address] [place] [address] Dr. Jodi Oglesby LYMPH # 1.5 103/ul Normal 1.2-3.8 [facility] Comment on above: Performed By: #### C BC #### [facility] [address] [place] [address] Dr. Jodi Oglesby Lymphocytes/100 WBC (Bld) 17.2 % Critically low 20.5-60.0 [facility] Comment on above: Performed By: #### C BC #### [facility] [address] [place] [address] Dr. Jodi Oglesby MANUAL DIFF REQ NO Normal [facility] Comment on above: Performed By: #### C BC #### [facility] [address] [place] [address] Dr. Jodi Oglesby MCH (RBC) [Entitic mass] 31.1 pg Normal 25.9-34.0 [facility] Comment on above: Performed By: #### C BC #### [facility] [address] [place] [address] Dr. Jodi Oglesby MCHC (RBC) [Mass/Vol] 32.3 g/dL Normal 29.9-35.2 [facility] Comment on above: Performed By: #### C BC #### [facility] [address] [place], [place] [id number] Dr. Jodi Oglesby MCV (RBC) [Entitic vol] 96.0 fL Critically high 80.0-94.0 [facility] Comment on above: Performed By: #### C BC #### [facility] [address] [place] [address] Dr. Jodi Oglesby MONO # 1.0 103/ul Critically high 0.3-0.8 [facility] Comment on above: Performed By: #### C BC #### [facility] [address] [place] [address] Dr. Jodi Oglesby Monocytes/100 WBC (Bld) 10.8 % Normal 1.7-12.0 [facility] Comment on above: Performed By: #### C BC #### [facility] [address] [place] [address] Dr. Jodi Oglesby NEUT # 6.2 103/ul Normal 1.4-6.5 [facility] Comment on above: Performed By: #### C BC #### [facility] [address] [place] [address] Dr. Jodi Oglesby Neutrophils/100 WBC (Bld) 70.6 % Normal 43.0-75.0 [facility] Comment on above: Performed By: #### C BC #### [facility] [address] [place] [address] Dr. Jodi Oglesby Platelet mean volume (Bld) [Entitic vol] 9.6 fL Normal 9.5-13.5 [facility] Comment on above: Performed By: #### C BC #### [facility] [address] [place] [address] Dr. Jodi Oglesby PLT 206 103/ul Normal 150-450 [facility] Comment on above: Performed By: #### C BC #### [facility] [address] [place] [address] Dr. Jodi Oglesby RBC 4.54 106/ul Critically low 4.70-6.10 [facility] Comment on above: Performed By: #### C BC #### [facility] [address] [place] [address] Dr. Jodi Oglesby WBC 8.8 103/ul Normal 4.0-11.0 [facility] Comment on above: Performed By: #### C BC #### [facility] [address] [place] [address] Dr. Jodi Oglesby PROF CHEM 8 (BAS METB)on Anion gap [Moles/Vol] 9.5 mmol/L Normal [facility] Comment on above: Performed By: #### B MP #### [facility] [address] [place] [address] Dr. Jodi Oglesby Calcium [Mass/Vol] 9.4 mg/dL Normal 8.5-10.1 [facility] Comment on above: Performed By: #### B MP #### [facility] [address] [place] [address] Dr. Jodi Oglesby Chloride [Moles/Vol] 100 mmol/L Normal 98-107 [facility] Comment on above: Performed By: #### B MP #### [facility] [address] [place] [address] Dr. Jodi Oglesby CO2 [Moles/Vol] 33.2 mmol/L Critically high 21.0-32.0 [facility] Comment on above: Performed By: #### B MP #### [facility] [address] [place] [address] Dr. Jodi Oglesby Creatinine [Mass/Vol] 0.99 mg/dL Normal 0.70-1.30 [facility] Comment on above: Performed By: #### B MP #### [facility] [address] [place] [address] Dr. Jodi Oglesby EGFR-AF HUNGARIAN >60 Normal >=60 [facility] Comment on above: Performed By: #### B MP #### [facility] [address] [place] [address] Dr. Jodi Oglesby EGFR-NON AF HUNGARIAN >60 Normal >=60 [facility] Comment on above: Performed By: #### B MP #### [facility] [address] [place] [address] Dr. Jodi Oglesby Glucose [Mass/Vol] 109 mg/dL Critically high 74-106 T [facility] Comment on above: Performed By: #### B MP #### [facility] [address] [address] [address] Jodi Oglesby Potassium [Moles/Vol] 4.7 mmol/L Normal 3.5-5.1 [facility] Comment on above: Performed By: #### B MP #### [facility] [address] [address] [address] Jodi Oglesby Sodium [Moles/Vol] 138 mmol/L Normal 136-145 [facility] Comment on above: Performed By: #### B MP #### [facility] [address] [address] [address] Joid Oglesby Urea nitrogen [Mass/Vol] 17.0 mg/dL Normal 7.0-18.0 [facility] Comment on above: Performed By: #### B MP #### [facility] [address] [address] [address] Jodi Oglesby Urea nitrogen/Creatinine [Mass ratio] 17.2 mg/mg Normal [facility] Comment on above: Performed By: #### B MP #### [facility] [address] [address] [address] Jodi Oglesby Creatinine (Bld) [Mass/Vol]O rdered By: Tamar Perea on 09-18-2021 Creatinine [Mass/Vol] 0.8 mg/dL 0.6-1.3 [facility] Comment on above: ER/ESD physician is notified/shown all ISTAT results. Critical values may be confirmed by laboratory testing if deemed necessary by ER attending doctor. No Panel InformationOrdered By: Tamar Perea on 09-18-2021 POC Estimated GFR > 60 [facility] Comment on above: GFR estimated refere nce range: According to KDOQI guidelines, <60 ml/min/1.73m2 is sufficient to diagnose a patient with chronic kidney disease. POC Estimated GFR Non- Amer > 60 [facility] CBC AUTO DIFFon 08-12-2021 BASO # 0.0 103/ul Normal 0.0-0.1 [facility] Comment on above: Performed By: #### C BC #### [facility] [address] [place] [address] Dr. Jodi Oglesby Basophils/100 WBC (Bld) 0.3 % Normal 0.2-2.0 [facility] Comment on above: Performed By: #### C BC #### [facility] [address] [place] [address] Dr. Jodi Oglesby EO # 0.1 103/ul Normal 0.0-0.7 [facility] Comment on above: Performed By: #### C BC #### [facility] [address] [place] [address] Dr. Jodi Oglesby Eosinophils/100 WBC (Bld) 1.8 % Normal 0.9-7.0 [facility] Comment on above: Performed By: #### C BC #### [facility] [address] [place] [address] Dr. Jodi Oglesby Erythrocyte distribution width (RBC) [Ratio] 12.6 % Normal 11.0-15.0 [facility] Comment on above: Performed By: #### C BC #### [facility] [address] [place] [address] Dr. Jodi Oglesby Hematocrit (Bld) [Volume fraction] 40.9 % Critically low 42.0-54.0 [facility] Comment on above: Performed By: #### C BC #### [facility] [address] [place] [address] Dr. Jodi Oglesby Hemoglobin (Bld) [Mass/Vol] 13.4 g/dL Critically low 14.0-18.0 [facility] Comment on above: Performed By: #### C BC #### [facility] [address] [place] [address] Dr. Jodi Oglesby IG # 0.03 10e3/ul Normal 0.00-0.03 [facility] Comment on above: Performed By: #### C BC #### [facility] [address] [place] [address] Dr. Jodi Oglesby IG % 0.4 % Normal 0.0-0.5 [facility] Comment on above: Performed By: #### C BC #### [facility] [address] [place] [address] Dr. Jodi Oglesby LYMPH # 1.4 103/ul Normal 1.2-3.8 [facility] Comment on above: Performed By: #### C BC #### [facility] [address] [place] [address] Dr. Jodi Oglesby Lymphocytes/100 WBC (Bld) 18.6 % Critically low 20.5-60.0 [facility] Comment on above: Performed By: #### C BC #### [facility] [address] [place] [address] Dr. Jodi Oglesby MCH (RBC) [Entitic mass] 31.5 pg Normal 25.9-34.0 [facility] Comment on above: Performed By: #### C BC #### [facility] [address] [place] [address] Dr. Jodi Oglesby MCHC (RBC) [Mass/Vol] 32.8 g/dL Normal 29.9-35.2 [facility] Comment on above: Performed By: #### C BC #### [facility] [address] [place] [address] Dr. Jodi Oglesby MCV (RBC) [Entitic vol] 96.0 fL Critically high 80.0-94.0 [facility] Comment on above: Performed By: #### C BC #### [facility] [address] [place] [address] Dr. Jodi Oglesby MONO # 0.7 103/ul Normal 0.3-0.8 [facility] Comment on above: Performed By: #### C BC #### [facility] [address] [place] [address] Dr. Jodi Oglesby Monocytes/100 WBC (Bld) 9.7 % Normal 1.7-12.0 [facility] Comment on above: Performed By: #### C BC #### [facility] [address] [place] [address] Dr. Jodi Oglesby NEUT # 5.1 103/ul Normal 1.4-6.5 [facility] Comment on above: Performed By: #### C BC #### [facility] [address] [place] [address] Dr. Jodi Oglseby Neutrophils/100 WBC (Bld) 69.2 % Normal 43.0-75.0 [facility] Comment on above: Performed By: #### C BC #### [facility] [address] [place] [address] Dr. Jodi Oglesby Platelet mean volume (Bld) [Entitic vol] 9.8 fL Normal 9.5-13.5 [facility] Comment on above: Performed By: #### C BC #### [facility] [address] [place] [address] Dr. Jodi Oglesby PLT 195 103/ul Normal 150-450 [facility] Comment on above: Performed By: #### C BC #### [facility] [address] [place] [address] Dr. Jodi Oglesby RBC 4.26 106/ul Critically low 4.70-6.10 [facility] Comment on above: Performed By: #### C BC #### [facility] [address] [place] [address] Dr. Jodi Oglesby WBC 7.4 103/ul Normal 4.0-11.0 [facility] Comment on above: Performed By: #### C BC #### [facility] [address] [place] [address] Dr. Jodi Oglesby ASHLEY - TSHon 08-12-2021 TSH 1.879 uIU/mL Normal 0.358-3.74 0 [facility] Comment on above: Performed By: #### D ATTSH DATBMP #### [facility] [address] [place] [address] Dr. Jodi Oglesyb TSH RANGE SEE BELOW Normal [facility] Comment on above: Result Comment: <0.3 4 UIU/ml HYPERTHYROID 0.34-5.60 UIU/ml EUTHYROID >5.60 UIU/ml HYPOTHYROID Performed By: #### D ATTSH, DATBMP #### [facility] [address] [place] [address] Dr. Jodi Oglesby ASHLEY- BMP WITH LIPIDon 2021 Anion gap [Moles/Vol] 11.4 mmol/L Normal [facility] Comment on above: Performed By: #### D LULU DATBMP #### [facility] [address] [address] [address] Jodi Oglesby Calcium [Mass/Vol] 8.7 mg/dL Normal 8.5-10.1 [facility] Comment on above: Performed By: #### D LULU DATBMP #### [facility] [address] [address] [address] Jodi Oglesby Chloride [Moles/Vol] 105 mmol/L Normal 98-107 [facility] Comment on above: Performed By: #### D LULU DATBMP #### [facility] [address] [place] [address] Dr. Jodi Oglesby Cholesterol [Mass/Vol] 113 mg/dL Normal <=200 [facility] Comment on above: Performed By: #### Chavez LAWSON DATBMP #### [facility] [address] [address] [address] Jodi Oglesby Cholesterol in HDL [Mass/Vol] 47 mg/dL Normal 40-60 [facility] Comment on above: Performed By: #### D LULU DATBMP #### [facility] [address] [place] [address] Dr. Jodi Oglesby Cholesterol in LDL [Mass/Vol] 58.0 mg/dL Normal [facility] Comment on above: Performed By: #### D LULU DATBMP #### [facility] [address] [address] [address] Jodi Oglesby CO2 [Moles/Vol] 29.0 mmol/L Normal 21.0-32.0 [facility] Comment on above: Performed By: #### Chavez LAWSON DATBMP #### [facility] [address] [place] [address] Dr. Joid Oglesby Creatinine [Mass/Vol] 0.99 mg/dL Normal 0.70-1.30 [facility] Comment on above: Performed By: #### D LULU DATBMP #### [facility] [address] [address] [address] Jodi Oglesby EGFR-AF HUNGARIAN >60 Normal >=60 [facility] Comment on above: Performed By: #### D ATTSH, DATBMP #### [facility] [address] [address] [address] Jodi Oglesby EGFR-NON AF HUNGARIAN >60 Normal >=60 [facility] Comment on above: Performed By: #### D ATTSH, DATBMP #### [facility] [address] [address] [address] Jodi Oglesby Glucose [Mass/Vol] 116 mg/dL Critically high 74-106 T [facility] Comment on above: Performed By: #### D ATTKENDELL, DATBMP #### [facility] [address] [place] [address] Dr. Jodi Oglesby HDL NORMAL > or = 60 mg/dl - LO W CARDIOVASCULAR RISK <40 mg/dl - HIGH CARDIOVASCULAR RISK Normal [facility] Comment on above: Performed By: #### D ATTKENDELL, DATBMP #### [facility] [address] [address] [address] Jodi Oglesby LDL CALC NORMAL SEE BELOW Normal [facility] Comment on above: Result Comment: <100 mg/dl OPTIMAL 100 - 129 mg/dl NEAR OR ABOVE OPTIMAL 130 - 159 mg/dl BORDERLINE HIGH 160 - 189 mg/dl HIGH >190 mg/dl VERY HIGH Performed By: #### D ATTKENDELL, DATBMP #### [facility] [address] [address] [address] Jodi Oglesby Potassium [Moles/Vol] 4.4 mmol/L Normal 3.5-5.1 [facility] Comment on above: Performed By: #### D ATTSH, DATBMP #### [facility] [address] [address] [address] Jodi Oglesby Sodium [Moles/Vol] 141 mmol/L Normal 136-145 [facility] Comment on above: Performed By: #### D ATTSH, DATBMP #### [facility] [address] [address] [address] Jodi Oglesby Triglyceride [Mass/Vol] 40 mg/dL Normal <=150 [facility] Comment on above: Performed By: #### D VALERIE LAWSONP #### [facility] [address] [address] [address] Jodi Oglesby Urea nitrogen [Mass/Vol] 16.0 mg/dL Normal 7.0-18.0 [facility] Comment on above: Performed By: #### ASHLEY TOUREBMP #### [facility] [address] [place] [address] Dr. Jodi Oglesby Urea nitrogen/Creatinine [Mass ratio] 16.2 mg/mg Normal [facility] Comment on above: Performed By: #### ASHLEY TOUREBMP #### [facility] [address] [place] [address] Dr. Jodi Oglesby VLDL CALC 8.0 mg/dL Normal [facility] Comment on above: Performed By: #### VALERIE TOUREP #### [facility] [address] [place] [address] Dr. Jodi Oglesby GLYCOHEMOGLOBIN A1Con 2021 ADA RECOMMENDATION SEE BELOW Normal [facility] Comment on above: Result Comment: ADA RECOMMENDED LIMIT 4.0 - 6.0 ADA THERAPEUTIC TARGET < 7.0 ACTION SUGGESTED > 7.0 Performed By: #### D ATA1C #### [facility] [address] [place] [address] Dr. Jodi Oglesby Glucose [Mass/Vol] 131 mg/dL Normal [facility] Comment on above: Performed By: #### D ATA1C #### [facility] [address] [place] [address] Dr. Jodi Oglesby HbA1c (Bld) [Mass fraction] 6.2 % Normal 4.5-6.2 [facility] Comment on above: Performed By: #### D ATA1C #### [facility] [address] [place] [address] Dr. Jodi Oglesby CNOVon 12-11-2020 CNOV Office Visit (VASSMD ) -- CHICO BAKER ([id number]) 1940 M Date Time Provider Department 12/11/20 10:45 AM POWER CATHERINE During your visit today, we recorded the following information about you: Pulse Blood pressure Weight Height 60/minute 122/78 67.6 kg 1.702 m Power Catherine MD 12/11/2020 11:17 AM Signed [facility] OUTPATIENT VISIT DATE December 11, 2020 OUTPATIENT VISIT TYPE EST PRIMARY CARE PHYSICIAN: Shailesh Dunham ([facility]) [address] [place] [address] REFERRING PHYSICIAN Power Catherine [address] [place] [id number] CHIEF COMPLAINT: Patient presents with: Established Patient [...] Power Catherine MD Referring Provider: POWER CATHERINE [[id number]] Allergies As of Date: 12/11/2020 Noted Allergy Reaction SHALINI INHIBITORS 05/09/2015 16 - Unknown GADOLINIUM-CONTAINING CONTRAST ME*05/09/2015 16 - Unknown TETANUS VACCINES AND TOXOID 05/16/2015 16 - Unknown Date Reviewed: 12/11/2020 Reviewed by: Harika Menjivar - Fully Assessed Reason for Visit: Established Patient [175] Follow Up [171] Primary Visit Diagnosis: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 - nitroglycerin sublingual (NITROQUICK) 0.3 mg SL tablet (more content not included)... Normal [facility] 10-30-2020 CNPN Telephone (VASFLOWERD) -- CHICO BAKER ([id number]) 1940 M Date Time Provider Department 10/30/20 [...] [I71.4] Order(s):US ABD AORTA COMPLETE [facility]AS [facility] [[id number]] Order #: [id number] FUTURE Prescriptions as of 11/04/2020 - aspirin, [...] Status:Closed by SHERI MOLINA on 11/04/20 Normal [facility] Vital Signs Date Time Vital Sign Value Performing Clinician Facility 09-03-2023 08:49-0400 Body height 170.18 cm DO [employer] Work Phone: [facility] 09-03-2023 08:49-0400 Body mass index (BMI) [Ratio] 21.9 kg/m2 DO [employer] Work Phone: [facility] 09-03-2023 08:49-0400 Body weight 63.5 kg DO [employer] Work Phone: [facility] 09-03-2023 08:49-0400 Diastolic blood pressure 58 mm[Hg] DO [employer] Work Phone: [facility] 09-03-2023 08:49-0400 Heart rate 63 /min DO [employer] Work Phone: [facility] 09-03-2023 08:49-0400 Respiratory rate 18 /min DO [employer] Work Phone: [facility] 09-03-2023 08:49-0400 SaO2% (BldA) [Mass fraction] 97 % DO [employer] Work Phone: [facility] 09-03-2023 08:49-0400 Systolic blood pressure 110 mm[Hg] DO [employer] Work Phone: [facility] 08-27-2023 08:33-0400 Body height 170.18 cm DO Shailesh Ball Work Phone: [facility] 08-27-2023 08:33-0400 Body mass index (BMI) [Ratio] 21.7 kg/m2 DO Shailesh Ball Work Phone: [facility] 08-27-2023 08:33-0400 Body weight 62.76 kg DO Shailesh Ball Work Phone: [facility] 08-27-2023 08:33-0400 Diastolic blood pressure 65 mm[Hg] DO Shailesh Ball Work Phone: [facility] 08-27-2023 08:33-0400 Heart rate 64 /min DO Shailesh Ball Work Phone: [facility] 08-27-2023 08:33-0400 Respiratory rate 12 /min DO Shailesh Ball Work Phone: [facility] 08-27-2023 08:33-0400 Systolic blood pressure 132 mm[Hg] DO Shailesh Ball Work Phone: [facility] 08-19-2023 11:18-0400 Body height 170.18 cm DO Shailesh Ball Work Phone: [facility] 08-19-2023 11:18-0400 Body mass index (BMI) [Ratio] 21.9 kg/m2 DO Shailesh Ball Work Phone: [facility] 08-19-2023 11:18-0400 Body weight 63.5 kg DO Shailesh Ball Work Phone: [facility] 08-19-2023 11:18-0400 Diastolic blood pressure 56 mm[Hg] DO Shailesh Ball Work Phone: [facility] 08-19-2023 11:18-0400 Heart rate 60 /min DO Shailesh Ball Work Phone: [facility] 08-19-2023 11:18-0400 Respiratory rate 18 /min DO Shailesh Ball Work Phone: [facility] 08-19-2023 11:18-0400 SaO2% (BldA) [Mass fraction] 98 % DO Shailesh Ball Work Phone: [facility] 08-19-2023 11:18-0400 Systolic blood pressure 102 mm[Hg] DO Shailesh Ball Work Phone: [facility] 07-05-2023 10:23-0400 Body height 170.18 cm DO Shailesh Ball Work Phone: [facility] 07-05-2023 10:23-0400 Body mass index (BMI) [Ratio] 21.4 kg/m2 DO Shailesh Ball Work Phone: [facility] 07-05-2023 10:23-0400 Body temperature 97 [degF] DO Hsailesh Ball Work Phone: [facility] 07-05-2023 10:23-0400 Body weight 62.14 kg DO Shailesh Ball Work Phone: [facility] 07-05-2023 10:23-0400 Diastolic blood pressure 48 mm[Hg] DO Shailesh Ball Work Phone: [facility] 07-05-2023 10:23-0400 Heart rate 60 /min DO Shailesh Ball Work Phone: [facility] 07-05-2023 10:23-0400 SaO2% (BldA) [Mass fraction] 97 % DO Shailesh Ball Work Phone: [facility] 07-05-2023 10:23-0400 Systolic blood pressure 96 mm[Hg] DO Shailesh Ball Work Phone: [facility] 06-22-2023 10:01-0400 Body height 170.18 cm DO Shailesh Ball Work Phone: [facility] 06-22-2023 10:01-0400 Body mass index (BMI) [Ratio] 21.5 kg/m2 DO Shailesh Ball Work Phone: [facility] 06-22-2023 10:01-0400 Body weight 62.36 kg DO Shailesh Ball Work Phone: [facility] 06-22-2023 10:01-0400 Diastolic blood pressure 69 mm[Hg] DO Shailesh Ball Work Phone: [facility] 06-22-2023 10:01-0400 Heart rate 64 /min DO Shailesh Ball Work Phone: [facility] 06-22-2023 10:01-0400 Respiratory rate 12 /min DO Shailesh Ball Work Phone: [facility] 06-22-2023 10:01-0400 Systolic blood pressure 95 mm[Hg] DO Shailesh Ball Work Phone: [facility] 05-04-2023 11:14-0500 Blood Pressure Location Ivelisse Lue [facility] 05-04-2023 11:14-0500 Diastolic blood pressure 46 mm[Hg] Ivelisse Lue [facility] 05-04-2023 11:14-0500 Heart rate 63 /min Ivelisse Lue [facility] 05-04-2023 11:14-0500 Systolic blood pressure 116 mm[Hg] Ivelisse Lue [facility] 04-14-2023 10:15-0500 Body height 170.18 cm Shailesh Ball Other [facility] [employer] Other 04-14-2023 10:15-0500 Body mass index (BMI) [Ratio] 21.64 kg/m2 Shailesh Ball Other [facility] [employer] Other 04-14-2023 10:15-0500 Body weight 62.69 kg Shailesh Ball Other [facility] [employer] Other 04-14-2023 10:15-0500 Diastolic blood pressure 58 mm[Hg] Shailesh Ball Other [facility] [employer] Other 04-14-2023 10:15-0500 Respiratory rate 12 /min Shailesh Ball Other [facility] [employer] Other 04-14-2023 10:15-0500 Systolic blood pressure 118 mm[Hg] Shailesh Ball Other [facility] [employer] Other 03-29-2023 10:00-0500 Body height 170.18 cm Shailesh Ball Other [facility] 03-29-2023 10:00-0500 Body mass index (BMI) [Ratio] 21.8 kg/m2 Shailesh Ball Other [facility] [employer] Other 03-29-2023 10:00-0500 Body weight 63.14 kg Shailesh Ball Other [facility] 03-29-2023 10:00-0500 Diastolic blood pressure 74 mm[Hg] Shailesh Ball Other [facility] 03-29-2023 10:00-0500 Respiratory rate 12 /min Shailesh Ball Other [facility] [employer] Other 03-29-2023 10:00-0500 Systolic blood pressure 132 mm[Hg] Shailesh Ball Other [facility] 01-13-2023 08:49-0500 Blood Pressure Location Ivelisse Lue [facility] 01-13-2023 08:49-0500 Diastolic blood pressure 74 mm[Hg] Ivelisse Lue [facility] 01-13-2023 08:49-0500 Heart rate 68 /min Ivelisse Lue [facility] 01-13-2023 08:49-0500 Respiratory rate 16 /min Ivelisse Lue [facility] 01-13-2023 08:49-0500 Systolic blood pressure 156 mm[Hg] Ivelisse Lue [facility] 11-10-2022 10:30-0400 Body height 170.18 cm Raul Quan Other [facility] [employer] Other 11-10-2022 10:30-0400 Body mass index (BMI) [Ratio] 20.99 kg/m2 Raul Quan Other [employer] Other 11-10-2022 10:30-0400 Body temperature 97.8 [degF] Raul Quan Other [employer] Other 11-10-2022 10:30-0400 Body weight 60.78 kg Raul Quan Other [employer] Other 11-10-2022 10:30-0400 Diastolic blood pressure 64 mm[Hg] Raul Quan Other [employer] Other 11-10-2022 10:30-0400 SaO2% (BldA) [Mass fraction] 98 % Raul Quan Other [employer] Other 11-10-2022 10:30-0400 Systolic blood pressure 110 mm[Hg] Raul Quan Other [employer] Other 10-07-2022 08:49-0400 Blood Pressure Location Ivelisse Lue [facility] 10-07-2022 08:49-0400 Diastolic blood pressure 74 mm[Hg] Ivelisse Lue [facility] 10-07-2022 08:49-0400 Heart rate 75 /min Ivelisse Lue [facility] 10-07-2022 08:49-0400 Systolic blood pressure 139 mm[Hg] Ivelisse Lue [facility] 08-04-2022 11:15-0400 Body height 170.18 cm Raul Quan Other [facility] [employer] Other 08-04-2022 11:15-0400 Body mass index (BMI) [Ratio] 21.77 kg/m2 Raul Quan Other [employer] Other 08-04-2022 11:15-0400 Body temperature 97.8 [degF] Raul Quan Other [employer] Other 08-04-2022 11:15-0400 Body weight 63.05 kg Raul Quan Other [employer] Other 08-04-2022 11:15-0400 Diastolic blood pressure 68 mm[Hg] Raul Quan Other [employer] Other 08-04-2022 11:15-0400 SaO2% (BldA) [Mass fraction] 97 % Raul Quan Other [employer] Other 08-04-2022 11:15-0400 Systolic blood pressure 108 mm[Hg] Raul Quan Other [facility] [employer] Other 07-09-2022 08:00-0400 Body temperature 98.6 [degF] DO Shailesh Ball Work Phone: [facility] 07-09-2022 08:00-0400 Diastolic blood pressure 72 mm[Hg] DO Shailesh Ball Work Phone: [facility] 07-09-2022 08:00-0400 Heart rate 69 /min DO Shailesh Ball Work Phone: [facility] 07-09-2022 08:00-0400 Respiratory rate 16 /min DO Shailesh Ball Work Phone: [facility] 07-09-2022 08:00-0400 SaO2% (BldA) [Mass fraction] 97 % DO Shailesh Ball Work Phone: [facility] 07-09-2022 08:00-0400 Systolic blood pressure 154 mm[Hg] DO Shailesh Ball Work Phone: [facility] 07-09-2022 06:00-0400 Body weight 65.8 kg DO Shailesh Ball Work Phone: [facility] 07-08-2022 10:52-0400 Inhaled oxygen flow rate 8 L/min DO Shailesh Ball Work Phone: [facility] 07-08-2022 08:34-0400 Body height 167.64 cm DO Shailesh Ball Work Phone: [facility] 07-08-2022 08:34-0400 Body mass index (BMI) [Ratio] 22.7 kg/m2 DO Shailesh Ball Work Phone: [facility] 06-24-2022 09:27-0400 Blood Pressure Location Ivelisse Hassan [facility] 06-24-2022 09:27-0400 Diastolic blood pressure 75 mm[Hg] Ivelisse Lue [facility] 06-24-2022 09:27-0400 Heart rate 66 /min Ivelisse Lue [facility] 06-24-2022 09:27-0400 Respiratory rate 16 /min Ivelisse Lue [facility] 06-24-2022 09:27-0400 Systolic blood pressure 120 mm[Hg] Ivelisse Lue [facility] 05-21-2022 09:30-0400 Body height 170.18 cm Shailesh Ball Other [facility] [employer] Other 05-21-2022 09:30-0400 Body mass index (BMI) [Ratio] 21.8 kg/m2 Shailesh Ball Other [facility] [employer] Other 05-21-2022 09:30-0400 Body weight 63.14 kg Shailesh Ball Other [facility] [employer] Other 05-21-2022 09:30-0400 Diastolic blood pressure 73 mm[Hg] Shailesh Ball Other [facility] [employer] Other 05-21-2022 09:30-0400 Respiratory rate 12 /min Shailesh Ball Other [facility] [employer] Other 05-21-2022 09:30-0400 Systolic blood pressure 121 mm[Hg] Shailesh Ball Other [employer] Other 05-19-2022 11:00-0400 Body height 170.18 cm Tamar Perea Other [employer] Other 05-19-2022 11:00-0400 Body mass index (BMI) [Ratio] 22.02 kg/m2 Tamar Perea Other [employer] Other 05-19-2022 11:00-0400 Body temperature 97.5 [degF] Tamar Perea Other [employer] Other 05-19-2022 11:00-0400 Body weight 63.78 kg Tamar Perea Other [employer] Other 05-19-2022 11:00-0400 Diastolic blood pressure 76 mm[Hg] Tamar Perea Other [employer] Other 05-19-2022 11:00-0400 SaO2% (BldA) [Mass fraction] 98 % Tamar Perea Other [employer] Other 05-19-2022 11:00-0400 Systolic blood pressure 148 mm[Hg] Tamar Perea Other [employer] Other 04-15-2022 08:57-0500 Blood Pressure Location Ivelisse Lue [facility] 04-15-2022 08:57-0500 Diastolic blood pressure 78 mm[Hg] Ivelisse Lue [facility] 04-15-2022 08:57-0500 Heart rate 68 /min Ivelisse Lue [facility] 04-15-2022 08:57-0500 Respiratory rate 16 /min Ivelisse Lue [facility] 04-15-2022 08:57-0500 Systolic blood pressure 122 mm[Hg] Ivelisse Lue [facility] 03-10-2022 11:30-0500 Body height 170.18 cm Raul Quan Other [employer] Other 03-10-2022 11:30-0500 Body mass index (BMI) [Ratio] 21.2 kg/m2 Raul Quan Other [employer] Other 03-10-2022 11:30-0500 Body temperature 97.8 [degF] Raul Quan Other [employer] Other 03-10-2022 11:30-0500 Body weight 61.42 kg Raul Quan Other [employer] Other 03-10-2022 11:30-0500 Diastolic blood pressure 64 mm[Hg] Raul Quan Other [employer] Other 03-10-2022 11:30-0500 SaO2% (BldA) [Mass fraction] 98 % Raul Quan Other [employer] Other 03-10-2022 11:30-0500 Systolic blood pressure 108 mm[Hg] Raul Quan Other [employer] Other 02-25-2022 11:09-0500 Blood Pressure Location IVA ANTOINE [facility] 02-25-2022 11:09-0500 Diastolic blood pressure 63 mm[Hg] IVA ANTOINE [facility] 02-25-2022 11:09-0500 Heart rate 64 /min IVA ARASH [facility] 02-25-2022 11:09-0500 Systolic blood pressure 105 mm[Hg] IVA ARASH [facility] 02-18-2022 14:12-0500 Blood Pressure Location IVA ARASH [facility] 02-18-2022 14:12-0500 Diastolic blood pressure 83 mm[Hg] IVA ARASH [facility] 02-18-2022 14:12-0500 Heart rate 70 /min IVA ARASH [facility] 02-18-2022 14:12-0500 Systolic blood pressure 142 mm[Hg] IVA ARASH [facility] 02-11-2022 08:42-0500 Blood Pressure Location Ivelisse Lue [facility] 02-11-2022 08:42-0500 Diastolic blood pressure 73 mm[Hg] Ivelisse Lue [facility] 02-11-2022 08:42-0500 Heart rate 68 /min Ivelisse Lue [facility] 02-11-2022 08:42-0500 Respiratory rate 16 /min Ivelisse Lue [facility] 02-11-2022 08:42-0500 Systolic blood pressure 150 mm[Hg] Ivelisse Lue [facility] 02-05-2022 08:00-0500 Body temperature 99.1 [degF] DO Shailesh Ball Work Phone: [facility] 02-05-2022 08:00-0500 Diastolic blood pressure 76 mm[Hg] DO Shailesh Ball Work Phone: [facility] 02-05-2022 08:00-0500 Heart rate 78 /min DO Shailesh Ball Work Phone: [facility] 02-05-2022 08:00-0500 Respiratory rate 16 /min DO Shailesh Ball Work Phone: [facility] 02-05-2022 08:00-0500 SaO2% (BldA) [Mass fraction] 95 % DO Shailesh Ball Work Phone: [facility] 02-05-2022 08:00-0500 Systolic blood pressure 168 mm[Hg] DO Shailesh Ball Work Phone: [facility] 02-05-2022 03:21-0500 Body weight 64.1 kg DO Shailesh Ball Work Phone: [facility] 02-04-2022 11:43-0500 Inhaled oxygen flow rate 6 L/min DO Shailesh Ball Work Phone: [facility] 02-04-2022 09:31-0500 Body height 167.64 cm DO Shailesh Ball Work Phone: [facility] 02-04-2022 09:31-0500 Body mass index (BMI) [Ratio] 23.3 kg/m2 DO Shailesh Ball Work Phone: [facility] 01-20-2022 12:30-0500 Body height 170.18 cm Raul Quan Other [employer] Other 01-20-2022 12:30-0500 Body mass index (BMI) [Ratio] 21.92 kg/m2 Raul Quan Other [employer] Other 01-20-2022 12:30-0500 Body temperature 97.7 [degF] Raul Buehrer Other [employer] Other 01-20-2022 12:30-0500 Body weight 63.5 kg Raul Buehrer Other [employer] Other 01-20-2022 12:30-0500 Diastolic blood pressure 64 mm[Hg] Raul Buehrer Other [employer] Other 01-20-2022 12:30-0500 SaO2% (BldA) [Mass fraction] 99 % Raul Buehrer Other [employer] Other 01-20-2022 12:30-0500 Systolic blood pressure 116 mm[Hg] Raul Buehrer Other [employer] Other 01-05-2022 11:15-0400 Body height 170.18 cm Raul Buehrer Other [employer] Other 01-05-2022 11:15-0400 Body mass index (BMI) [Ratio] 21.92 kg/m2 Raul Buehrer Other [employer] Other 01-05-2022 11:15-0400 Body temperature 96 [degF] Raul Buehrer Other [employer] Other 01-05-2022 11:15-0400 Body weight 63.5 kg Raul Buehrer Other [employer] Other 01-05-2022 11:15-0400 Diastolic blood pressure 58 mm[Hg] Raul Buehrer Other [employer] Other 01-05-2022 11:15-0400 SaO2% (BldA) [Mass fraction] 99 % Raul Lawrencemary ann Other [employer] Other 01-05-2022 11:15-0400 Systolic blood pressure 100 mm[Hg] Raul Stanislawchantellmary ann Other [employer] Other 11-24-2021 12:30-0400 Body height 170.18 cm Tamar Martinezmoy Other [employer] Other 11-24-2021 12:30-0400 Body mass index (BMI) [Ratio] 21.92 kg/m2 Tmaar Brit Other [employer] Other 11-24-2021 12:30-0400 Body temperature 97.5 [degF] Tamar Martinezmoy Other [employer] Other 11-24-2021 12:30-0400 Body weight 63.5 kg Tamar Martinezmoy Other [employer] Other 11-24-2021 12:30-0400 Diastolic blood pressure 50 mm[Hg] Tamar Perea Other [employer] Other 11-24-2021 12:30-0400 SaO2% (BldA) [Mass fraction] 98 % Tamar Perea Other [employer] Other 11-24-2021 12:30-0400 Systolic blood pressure 96 mm[Hg] Tamar Zhuo Other [employer] Other 10-21-2021 07:30-0400 50 1 Shailesh E Ball Work Phone: [facility] [address] [place] Work Phone: Comment on above: [id number] 10-15-2021 08:27-0400 Body height 167.64 cm DO Shailesh Ball Work Phone: [facility] 10-15-2021 08:27-0400 Body temperature 97.7 [degF] DO Shailesh Ball Work Phone: [facility] 10-15-2021 08:27-0400 Body weight 66 kg DO Shailesh Ball Work Phone: [facility] 10-15-2021 08:27-0400 Diastolic blood pressure 75 mm[Hg] DO Shailesh Ball Work Phone: [facility] 10-15-2021 08:27-0400 Heart rate 73 /min DO Shailesh Ball Work Phone: [facility] 10-15-2021 08:27-0400 Respiratory rate 16 /min DO Shailesh Ball Work Phone: [facility] 10-15-2021 08:27-0400 SaO2% (BldA) [Mass fraction] 97 % DO Shailesh Ball Work Phone: [facility] 10-15-2021 08:27-0400 Systolic blood pressure 143 mm[Hg] DO Shailesh Ball Work Phone: [facility] 09-30-2021 13:30-0400 Body height 170.18 cm Tamar Perea Other [facility] [employer] Other 09-30-2021 13:30-0400 Body mass index (BMI) [Ratio] 24.27 kg/m2 Tamar Perea Other [facility] [employer] Other 09-30-2021 13:30-0400 Body temperature 97.4 [degF] Tamar Perea Other [employer] Other 09-30-2021 13:30-0400 Body weight 70.31 kg Tamar Perea Other [employer] Other 09-30-2021 13:30-0400 Diastolic blood pressure 70 mm[Hg] Tamar Perea Other [employer] Other 09-30-2021 13:30-0400 SaO2% (BldA) [Mass fraction] 98 % Tamar Perea Other [employer] Other 09-30-2021 13:30-0400 Systolic blood pressure 140 mm[Hg] Tamar Perea Other [employer] Other 09-15-2021 11:00-0400 Body height 170.18 cm Tamar Perea Other [employer] Other 09-15-2021 11:00-0400 Body mass index (BMI) [Ratio] 24.27 kg/m2 Tamar Perea Other [employer] Other 09-15-2021 11:00-0400 Body temperature 96.4 [degF] Tamar Perea Other [employer] Other 09-15-2021 11:00-0400 Body weight 70.31 kg Tamar Perea Other [employer] Other 09-15-2021 11:00-0400 Diastolic blood pressure 72 mm[Hg] Tamar Perea Other [employer] Other 09-15-2021 11:00-0400 SaO2% (BldA) [Mass fraction] 98 % Tamar Perea Other [employer] Other 09-15-2021 11:00-0400 Systolic blood pressure 138 mm[Hg] Tamar Perea Other [employer] Other 07-28-2021 10:45-0400 Body height 170.18 cm Raulchristiana Lawrencerejakub Other [employer] Other 07-28-2021 10:45-0400 Body mass index (BMI) [Ratio] 24.27 kg/m2 Raulchristiana Lawrencerer Other [employer] Other 07-28-2021 10:45-0400 Body temperature 96.6 [degF] Raul Quan Other [employer] Other 07-28-2021 10:45-0400 Body weight 70.31 kg Raul Lawrencerer Other [employer] Other 07-28-2021 10:45-0400 Diastolic blood pressure 78 mm[Hg] Raul Lawrencerer Other [employer] Other 07-28-2021 10:45-0400 SaO2% (BldA) [Mass fraction] 98 % Raul Lawrencerer Other [facility] Other 07-28-2021 10:45-0400 Systolic blood pressure 190 mm[Hg] Raul Doverehrer Other [facility] Other Encounters Encounter Date Encounter Type Care Provider Facility Start: 09-17-2023 ambulatory [facility] Start: 09-03-2023 End: 09-03-2023 ambulatory DO Shailesh Ball Work Phone: [facility] Work Phone: Start: 09-03-2023 End: 09-03-2023 Patient encounter procedure DO Shailesh Ball Work Phone: [facility] Work Phone: Start: 08-31-2023 End: 08-31-2023 Patient encounter procedure DO Shailesh Ball Work Phone: [facility]Electrodiagnostics Work Phone: Start: 08-31-2023 End: 08-31-2023 ambulatory DO Shailesh Ball Work Phone: [facility] Work Phone: Start: 08-27-2023 End: 08-27-2023 ambulatory DO Shailesh Ball Work Phone: [facility] Work Phone: Start: 08-27-2023 End: 08-27-2023 Patient encounter procedure DO Shailesh Ball Work Phone: [facility] Work Phone: Start: 08-19-2023 End: 08-19-2023 ambulatory DO Shailesh Ball Work Phone: [facility] Work Phone: Start: 08-19-2023 End: 08-19-2023 Patient encounter procedure DO Shailesh Ball Work Phone: [facility] Work Phone: Start: 08-18-2023 End: 08-18-2023 ambulatory CHUN Melgoza [facility] Start: 08-18-2023 End: 08-18-2023 [facility] Start: 08-17-2023 End: 08-17-2023 ambulatory YSABEL JOHN [facility] Start: 08-13-2023 End: 08-13-2023 ambulatory YSABEL JOHN [facility] Start: 08-04-2023 End: 08-04-2023 ambulatory YSABEL JOHN [facility] Start: 07-27-2023 End: 07-27-2023 ambulatory CLIFTON CORREA Not Available Start: 07-05-2023 End: 07-05-2023 ambulatory DO Shailesh Ball Work Phone: [facility] Work Phone: Start: 07-05-2023 End: 07-05-2023 Patient encounter procedure DO Shailesh Ball Work Phone: [facility] Vascular Surgery Work Phone: Start: 06-22-2023 End: 06-22-2023 ambulatory DO Shailesh Ball Work Phone: [facility] Work Phone: Start: 06-22-2023 End: 06-22-2023 Patient encounter procedure DO Shailesh Ball Work Phone: [facility] Work Phone: Start: 06-16-2023 End: 06-16-2023 Patient encounter procedure DO Shailesh Ball Work Phone: [facility]-CT Scan Main Drain Work Phone: Start: 06-16-2023 End: 06-16-2023 ambulatory DO Shailesh Ball Work Phone: [facility] Work Phone: Start: 05-04-2023 End: 05-05-2023 ambulatory Ivelisse Hassan [facility] Start: 05-04-2023 End: 05-04-2023 Lab Drop off Ivelisse Hassan [facility] Start: 05-04-2023 End: 05-04-2023 Patient encounter procedure Ivelisse Hassan [facility] Start: 04-28-2023 End: 04-29-2023 ambulatory Ivelisse Hassan Facility::[id number] Start: 04-26-2023 Non-patient / Non-visit DO Ryder Dunham Work Phone: [facility] Work Phone: Start: 04-20-2023 Non-patient / Non-visit DO Ryder Dunham Work Phone: [facility] Work Phone: Start: 04-20-2023 Non-patient / Non-visit DO Ryder Dunham Work Phone: [facility] Work Phone: Start: 04-14-2023 End: 04-14-2023 ambulatory Shailesh Dunham Other [facility] Other Start: 04-14-2023 Encounter for other preprocedural examination Shailesh Dunham [facility] Start: 04-14-2023 Office outpatient vi sit 15 minutes Shailesh Dunham [facility] Start: 04-08-2023 End: 04-08-2023 ambulatory Shailesh Dunham Other [facility] Other Start: 04-08-2023 Telephone encounter Shailesh Dunham NANY G [facility] Start: 04-05-2023 End: 04-05-2023 ambulatory Shailesh Dunham Other [facility] Other Start: 04-05-2023 Telephone encounter Shailesh AYON [facility] Start: 04-04-2023 End: 04-04-2023 ambulatory Raul Quan Other [facility] Other Start: 04-04-2023 Telephone encounter Raul Quan [facility] Start: 03-29-2023 End: 01-22-2024 ambulatory Shailesh Dunham Other [facility] Other Start: 03-29-2023 Transitional care ma antonina srvc 14 day discharge Shailesh Dunham [facility] Start: 03-29-2023 End: 03-29-2023 Patient encounter procedure DO Shailesh Dunham Work Phone: [facility]- Start: 03-25-2023 End: 03-25-2023 ambulatory Raul Quan Other [facility] [employer] Other Start: 03-25-2023 Telephone encounter Raul Quan [facility] Start: 03-24-2023 End: 03-25-2023 ambulatory Ivelisse Hassan Facility:CD:[id number] Start: 01-13-2023 End: 01-14-2023 ambulatory Ivelisse Hassan Facility:[facility] Start: 01-13-2023 End: 01-13-2023 Patient encounter procedure Ivelisse Hassan [facility] Start: 11-10-2022 Office outpatient vi sit 25 minutes Raul Quan [facility] Vascular Surgery Start: 11-10-2022 End: 11-10-2022 Patient encounter procedure DO Shailesh Dunham Work Phone: [facility]-Ultrasound [facility] Start: 11-10-2022 End: 11-10-2022 ambulatory DO Shailesh Dunham Work Phone: [facility] [employer] Other Start: 10-07-2022 End: 10-08-2022 ambulatory Ivelisse Hymane Facility:[facility] Start: 10-07-2022 End: 10-07-2022 Patient encounter procedure Ivelisse Hymane [facility] Start: 08-04-2022 End: 08-04-2022 ambulatory Raul Quan Other [place] [employer] Other Start: 08-04-2022 Postop follow up vis it related to original px Raul Avelina [facility] Start: 07-28-2022 End: 07-29-2022 ambulatory Ivelisse Hassan Facility:[facility] Start: 07-14-2022 ambulatory Ivelisse Hassan Facility:C D:[id number] Start: 07-09-2022 End: 07-09-2022 ambulatory Shailesh Dunham Other [facility] Other Start: 07-09-2022 Telephone encounter [facility] Start: 07-08-2022 End: 07-08-2022 ambulatory Shailesh Dunham Other [place] [employer] Other Start: 07-08-2022 Telephone encounter Shailesh Enrico [facility] Start: 07-08-2022 End: 07-09-2022 Evaluation and management of inpatient DO Shailesh Dunham Work Phone: [facility] [place] [facility] Work Phone: Start: 07-01-2022 End: 07-01-2022 ambulatory DO Shailesh Dunham Work Phone: [facility] Work Phone: Start: 07-01-2022 End: 07-01-2022 Patient encounter procedure DO Shailesh Dunham Work Phone: [facility] Dxt-[facility] Testing Work Phone: Start: 06-24-2022 End: 06-25-2022 ambulatory Ivelisse Hassan Facility:[facility] Start: 06-24-2022 End: 06-24-2022 Patient encounter procedure Ivelisse Hassan [facility] Start: 05-21-2022 End: 05-21-2022 ambulatory Shailesh Dunham Other [employer] Other Start: 05-21-2022 Patient encounter procedure Shailesh Dunham [facility] Start: 05-19-2022 End: 05-19-2022 ambulatory Tamar Perea Other [facility] Other Start: 05-19-2022 Follow-up encounter Tamar Martinezmoy [facility] Start: 05-13-2022 End: 05-13-2022 ambulatory Raul Quan Other [facility] Other Start: 05-13-2022 Telephone encounter Raul Avelina [facility] Start: 05-11-2022 End: 05-11-2022 ambulatory DO Shailesh Dunham Work Phone: [facility] Work Phone: Start: 05-11-2022 End: 05-11-2022 Patient encounter procedure DO Shailesh Dunham Work Phone: [facility]-CT Scan Main Drain Work Phone: Start: 04-23-2022 End: 04-23-2022 ambulatory Raul Quan Other [employer] Other Start: 04-23-2022 Telephone encounter Raul Quan [facility] Vascular Surgery Start: 04-15-2022 End: 04-15-2022 Lab Drop off Ivelisse Hassan [facility] Start: 04-15-2022 End: 04-15-2022 Patient encounter procedure Ivelisse Hassan [facility] Start: 04-14-2022 End: 04-14-2022 ambulatory Shailesh Dunham Other [employer] Other Start: 04-14-2022 Telephone encounter Shailesh AYON [facility] Start: 03-10-2022 End: 03-10-2022 ambulatory Raul Quan Other [facility] [employer] Other Start: 03-10-2022 Office outpatient vi sit 25 minutes Raul Quan [facility] Vascular Surgery Start: 02-25-2022 End: 02-25-2022 Patient encounter procedure IVA ANTOINE [facility] Start: 02-18-2022 End: 02-18-2022 Patient encounter procedure IVA ANTOINE [facility] Start: 02-11-2022 End: 02-11-2022 Lab Drop off Ivelisse Hassan [facility] Start: 02-11-2022 End: 02-11-2022 Patient encounter procedure Ivelisse Hassan [facility] Start: 02-10-2022 End: 02-11-2022 ambulatory IVELISSE HASSAN . Facility:[facility] Start: 02-07-2022 Encounter for other preprocedural examination DR RAUL QUAN [facility] Start: 02-07-2022 Encounter for preprocedural laboratory examination DR RAUL QUAN [facility] Start: 02-04-2022 End: 02-05-2022 Evaluation and management of inpatient DO Shailesh Dunham Work Phone: [facility] [place] [facility] Start: 02-02-2022 End: 02-03-[address] RAUL QUAN Facility:[facility] Start: 02-02-2022 End: 02-03-2022 Encounter for other preprocedural examination DR RAUL QUAN Facility:[facility] Start: 01-20-2022 Office outpatient vi sit 25 minutes Raul Quan [facility] Vascular Surgery Start: 01-20-2022 End: 01-20-2022 ambulatory DO Shailesh Dunham Work Phone: [employer] Other Start: 01-20-2022 End: 01-20-2022 Patient encounter procedure DO Shailesh Dunham Work Phone: [facility]-Ultrasound [facility] Start: 01-05-2022 End: 01-05-2022 ambulatory Raul Quan Other [facility] Other Start: 01-05-2022 Office outpatient vi sit 25 minutes Raul Quan [facility] Vascular Surgery Start: 12-08-2021 End: 12-09-[address] SHAILESH DUNHAM Facility:[facility] Start: 12-02-2021 End: 12-02-[address] SHAILESH DUNHAM Facility:[facility] Start: 11-24-2021 End: 11-24-2021 ambulatory Tamar Perea Other [facility] Other Start: 11-24-2021 Patient encounter procedure Tamar Rutmoy [facility] Vascular Surgery Start: 11-11-2021 End: 11-11-[address] SHAILESH DUNHAM Facility:[facility] Start: 10-26-2021 End: 10-26-[address] SHAILESH DUNHAM Facility:[facility] Start: 10-21-2021 Patient encounter procedure Shailesh Dunham Work Phone: [facility] [address] [place] Work Phone: Start: 10-16-2021 Telephone encounter Judah Vivas MD Work Phone: [facility] DO Work Phone: Start: 10-15-2021 End: 10-15-2021 Evaluation and management of inpatient DO Shailesh Dunham Work Phone: [facility] [place] [facility] Start: 10-13-2021 End: 10-13-2021 Patient encounter procedure DO Shailesh Dunham Work Phone: [facility]-Pre-Surgical Testing Start: 10-06-2021 End: 10-06-2021 Patient encounter procedure DO Shailesh Dunham Work Phone: [facility]-Pre-Surgical Testing Start: 09-30-2021 End: 09-30-2021 ambulatory Tamar Perea Other [employer] Other Start: 09-30-2021 Encounter for other preprocedural examination Tamar Perea [facility] Start: 09-30-2021 Follow-up encounter Tamar [facility] Start: 09-22-2021 End: 09-23-[address] SHAILESH DUNHAM Facility: Start: 09-18-2021 End: 09-18-2021 Patient encounter procedure DO Shailesh Enrico Work Phone: [facility]-CT Scan Main Drain Start: 09-15-2021 End: 09-15-2021 ambulatory Tamar Perea Other [facility] Other Start: 09-15-2021 Follow-up encounter Tamar Perea [facility] Start: 08-27-2021 End: 08-27-2021 Patient encounter procedure DO Shailesh Enrico Work Phone: [facility]-Ultrasound [facility] Start: 08-12-2021 End: 08-13-[address] KURTZ LISTED REQUEST Facility:[facility]1 Start: 07-28-2021 End: 07-28-2021 ambulatory Raul Quan Other [employer] Other Start: 07-28-2021 Office outpatient ne w 45 minutes Raul Quan [facility] Start: 06-13-2020 End: 06-13-2020 Patient encounter procedure Lisandra Sher Work Phone: [facility] Work Phone: Patient encounter status Judah Harrington MD Work Phone: [facility] [facility] DO Work Phone: Procedures Date Procedure Procedure Detail Performing Clinician Start: 06-16-2023 Computed tomography of abdomen and pelvis with contrast DO Shailesh Dunham Work Phone: Start: 05-04-2023 Cystoscopic removal of ureteric stent Ivelisse Hassan Start: 04-28-2023 Cystoscopic insertion of ureteric stent Ivelisse Hassan Start: 11-10-2022 Doppler ultrasonography of bilateral carotid arteries DO Shailesh Dunham [employer] Phone: Start: 07-28-2022 Cystourethroscopy with dilation of urethral stricture Ivelisse Hassan Start: 07-08-2022 Insertion of carotid artery stent DO Ryder Dunham Work Phone: Start: 05-11-2022 Computed tomography angiography of abdominal and/or pelvic blood vessel DO Shailesh [facility] Phone: Start: 05-11-2022 CT angiography of head DO Shailesh Dunham [employer] Phone: Start: 05-11-2022 CT angiography of neck vessels DO Josué fischer [employer] Work Phone: Start: 02-10-2022 PSA screening IVELISSE HASSAN . Comment on above: Performed By: #### DATA1C #### [facility] [address] [place] [address] Dr. 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 Ivelisse Hassan Start: 02-04-2022 Endovascular repair of abdominal aortic aneurysm DO Shailesh [facility]tron Phone: Start: 01-20-2022 Doppler ultrasonography of bilateral carotid arteries DO [facility] Phone: Start: 09-18-2021 Computed tomography angiography of abdominal and/or pelvic blood vessel DO [facility] Phone: Start: 08-27-2021 US scan of aorta DO [facility] Phone: Start: 08-27-2021 Doppler ultrasonography of bilateral carotid arteries DO Shailesh Ball Work Phone: Start: 06-13-2020 Imm. administration COVID19 taggai [employer] Work Phone: Start: 06-13-2020 SARS-CoV-2 vaccine, 0.5ml [employer] Work Phone: Start: 10-18-2019 Transurethral prostatectomy Ivelisse Lue Start: 04-06-2019 Cystoscope, device (physical object) Ivelisse Lue Start: 10-06-2016 Colonoscopy Ivelisse Lue Comment on above: 2010 Arthroscopy of knee Ivelisse Yenni e Catheterization of left heart Ivelisse Lue Esophagogastroduodenoscopy K athy Lue Plan of Treatment Date Care Activity Detail Author Start: 09-01-2023 ambulatory Ambulatory Facility:[facility] Start: 08-19-2023 [facility] Start: 07-09-2022 [facility] Start: 07-08-[address] [facility] Start: 07-08-2022 Patient referral to dietitian [facility] Start: 02-05-2022 [facility] Start: 02-04-2022 [facility] Start: 02-04-[address] [facility] Start: 10-21-2021 STRESS NUC, Provider: [facility]VI NUCLEAR 01,[id number], Status: Pen, Time: 7:30 AM STRESS NUC, Provider: [facility] NUCLEAR 01,[id number], Status: Pen, Time: 7:30 AM [facility] [facility] DO Work Phone: Start: 10-15-2021 [facility] Work Phone: Start: 10-15-2021 OR Percutaneous EVAR AAA (Not Applicable) OR Percutaneous EVAR AAA (Not Applicable) [facility] Start: 10-15-2021 End: 10-15-2021 Evaluation and management of inpatient AAA (abdominal aortic aneurysm) [facility] [place] [facility] Start: 10-13-2021 End: 10-13-2021 Patient encounter procedure Departed Clinical [facility] [employer] [facility] Patient Education [facility] Work Phone: Patient referral [facility] Work Phone: US Gallbladder [facility] limited [facility]hor[facility] and abdo sebastian aorta [facility].doppler Carotid arteries - bilateral [facility] Immunizations Immunization Date Immunization Notes Care Provider David holloway 06-13-2020 Rodney and Rodney COVID 19 Vaccine [facility] Comment on above: Note: Patient tolera shyann well. No signs or symptoms of adverse reactions. Patient waited a minimum of 15 minutes. NEGATED: Highlighted row has not occurred!01-13-2023 influenza virus vaccine, unspecified formulation Ivelisse Hassan [facility] Payers Date Payer Category Payer Self-pay [id number] 2020 Unknown [id number] . [id number] 1959 Self-pay [id number] 1959 Unknown [id number] 1959 Unknown [id number] 1959 Unknown [id number] 1942 Unknown [id number] 2.16.84 0.1.211920.3.579.2.593 1942 Unknown [id number] 2.16.84 0.1.077074.3.579.2.593 1942 Unknown [id number] 2.16.84 0.1.762771.3.579.2.593 1942 Unknown [id number] 2.16.84 0.1.185263.3.579.2.593 1942 Unknown [id number] 2.16.84 0.1.747778.3.579.2.593 1942 Unknown [id number] 2.16.84 0.1.741658.3.579.2.593 1942 Unknown [id number] 2.16.84 0.1.462155.3.579.2.593 1942 Unknown [id number] 2.16.8 40.1.534921.3.579.2.727 1942 Unknown [id number] 2.16.8 40.1.555203.3.579.2.727 1942 Unknown [id number] 2.16.8 40.1.449863.3.579.2.727 1942 Unknown [id number] 2.16.8 40.1.473256.3.579.2.727 1942 Unknown [id number] 2.16.8 40.1.153227.3.579.2.727 1942 Unknown [id number] 2.16.8 40.1.154858.3.579.2.727 1942 Unknown [id number] 2.16.8 40.1.332016.3.579.2.727 1942 Unknown [id number] 2.16.8 40.1.398857.3.579.2.727 1942 Unknown [id number] 2.16.8 40.1.070498.3.579.2.727 1942 Unknown [id number] 2.16.84 0.1.914864.3.579.2.1259 Unknown Unknown [facility] [id number] Unknown [id number] 2.16.84 0.1.041113.3.579.2.593 Unknown [id number] 2.16.8 40.1.267951.3.579.2.531 Unknown [id number] 2.16.8 40.1.398492.3.579.2.531 Unknown [id number] 2.16.8 40.1.068422.3.579.2.531 Social History Date Type Detail Facility Tobacco smoking status Unknown i f ever smoked [facility] Work Phone: Start: 03-08-1955 End: 03-08-1996 Sex Assigned At [facility] Start: 10-15-2021 End: 08-19-2023 Tobacco smoking status WYIS Ex-smoker (finding) [facility] Start: 1940 Sex Assigned At Male F [facility] Tobacco smoking status Never [facility] Medical Equipment Procedure Code Equipment Code Equipment Origin al Text Equipment Identifier Dates Transcarotid artery revascularization (TCAR) Bare-metal carotid artery stent ()[id number] FDA Start: 07-08-2022 Transcarotid artery revascularization (TCAR) Bare-metal carotid artery stent ()[id number] FDA Start: 07-08-2022 Percutaneous endovascular repair of abdominal aortic aneurysm (AAA) Abdominal aorta endovascular stent-graft ()[id number] FDA Start: 02-04-2022 Percutaneous endovascular repair of abdominal aortic aneurysm (AAA) Abdominal aorta endovascular stent-graft ()[id number] FDA Start: 02-04-2022 Percutaneous endovascular repair of abdominal aortic aneurysm (AAA) Abdominal aorta endovascular stent-graft ()[id number] FDA Start: 02-04-2022 Goals Date Patient Goal Desired Activity /State Functional Status Date Assessment Result Facility 05-04-2023 Functional Status N/A [facility] 01-13-2023 Functional Status N/A [facility] 10-07-2022 Functional Status N/A [facility] 07-09-2022 Functional status Patient is Pro gressing Toward Baseline [facility] Work Phone: 06-24-2022 Functional Status N/A [facility] 04-15-2022 Functional Status N/A [facility] 02-25-2022 Functional Status N/A [facility] 02-18-2022 Functional Status N/A [facility] 02-11-2022 Functional Status N/A [facility] 02-05-2022 Functional status Patient at Baseline [facility] Work Phone: 10-15-2021 Functional status Patient at Baseline [facility] Work Phone: Mental Status Date Assessment Result Facility 07-09-2022 Cognitive function Cognitive Sta tus Patient is Progressing Toward Baseline [facility] Work Phone: 02-05-2022 Cognitive function Cognitive Sta tus Patient at Baseline [facility] Work Phone: 10-15-2021 Cognitive function Cognitive Sta tus Patient at Baseline [facility] Work Phone: Clinical Notes 04-18-2020 to 08-18-2023 Note Date & Type Note Facility 08-18-2023 Note HEPATOBILIARY & PANC REAS SURGERY CONSULTATION NOTE Reason for Consult: Consult for gallbladder mass PCP: Shailesh Dunham MD Chief Complaint: Gallbladder mass History of Present Illness: [place] Siuno is a 83 y.o. male who presents for consultation of a gallbladder mass first identified during abdominal ultrasound on 07/05/23. He initially presented to his PCP a few months prior for increasing heartburn and intermittent upper epigastric pain, alongside gradual 30 lb weight loss over the past 3 years. The heartburn and associated pain mostly occurred after eating. Following these symptoms, an upper abdominal ultrasound was performed, showing a 2.6 cm mass in the gallbladder at the fundus. MRCP was performed on 08/16/23, which did not show evidence of direct invasion into liver parenchyma, however was not able to differentiate the mass as a polyp vs malignancy. The patient was given PPIs and following daily usage of 20 mg in the mornings, the patient no longer reports heartburn or associated abdominal pain. Presently, the patient reports fatigue and shortness of breath on exertion, and attributes these symptoms as having increased with each subsequent surgery. Past surgical history is significant for two left carotid artery stents, an AAA aneurysm stent, two left-sided kidney lithotripsy and a right femoral ORIF. Review of Systems Constitutional: Positive for fatigue Neurological: Negative Cardiovascular: Negative Pulmonary: Positive for shortness of breath Musculoskeletal: Positive for lower back pain Gastrointestinal: Negative PMH: Past Medical History: Diagnosis Date Kidney stones PSH: Past Surgical History: Procedure Laterality Date CAROTID STENT CAROTID STENT Left FEMUR FRACTURE SURGERY KIDNEY STONE SURGERY Allergies: Allergies Allergen Reactions Shalini Inhibitors Hives and Unknown Other Reaction(s): Unknown Gadolinium-Containing Contrast Media Itching and Unknown Iodinated Contrast Media Hives Other Reaction(s): hives Iodine Unknown Tetanus And Diphtheria Toxoids Unknown Tetanus Immune Globulin Other Tetanus Vaccines And Toxoid Unknown and Other Home Meds: Current Outpatient Medications: acetaminophen (Tylenol) 500 mg tablet, Take 1,000 mg by mouth every 6 (six) hours if needed., Disp: , Rfl: Allergy, diphenhydrAMINE, 25 mg capsule, TAKE 2 CAPSULES BY MOUTH ONCE NEEDED FOR ALLERGIC REACTION 60 MINUTES PRIOR TO TEST, Disp: , Rfl: amLODIPine (Norvasc) 2.5 mg tablet, TAKE 1 TABLET BY MOUTH TWICE A DAY FOR 30 DAYS, Disp: , Rfl: aspirin 81 mg EC tablet, Take 81 mg by mouth in the morning., Disp: , Rfl: buffered aspirin (Bufferin) 325 mg tablet, Take 81 mg by mouth in the morning., Disp: , Rfl: calcium citrate (Calcitrate) 200 mg (950 mg) tablet, Take 400 mg by mouth 3 times a day., Disp: , Rfl: calcium polycarbophil (Fibercon) 625 mg tablet, Take 625 mg by mouth in the morning., Disp: , Rfl: carvedilol (Coreg) 25 mg tablet, Take 1 tablet by mouth with breakfast and with evening meal., Disp: , Rfl: cholecalciferol (Vitamin D-3) 25 MCG (1000 UT) capsule, TAKE 1 CAPSULE BY MOUTH IN THE MORNING AND ONE IN THE EVENING WITH MEALS, Disp: , Rfl: clopidogrel (Plavix) 75 mg tablet, Take 75 mg by mouth in the morning., Disp: , Rfl: doxazosin (Cardura) 4 mg tablet, Take 4 mg by mouth., Disp: , Rfl: isosorbide mononitrate ER (Imdur) 30 mg 24 hr tablet, Take 30 mg by mouth in the morning., Disp: , Rfl: losartan (Cozaar) 100 mg tablet, Take 100 mg by mouth in the morning., Disp: , Rfl: losartan (Cozaar) 25 mg tablet, Take 25 mg by mouth in the morning., Disp: , Rfl: losartan (Cozaar) 50 mg tablet, Take 50 mg by mouth twice a day., Disp: , Rfl: mirabegron (Myrbetriq) 25 mg tablet extended release 24 hr, Take 25 mg by mouth., Disp: , Rfl: nitroglycerin (Nitrostat) 0.3 mg SL tablet, Place 0.3 mg under the tongue., Disp: , Rfl: omeprazole OTC (PriLOSEC OTC) 20 mg EC tablet, Take 20 mg by mouth before breakfast. Do not crush, chew, or split., Disp: , Rfl: oxybutynin (Ditropan) 5 mg tablet, TAKE 1 TABLET ORALLY EVERY 8 HOURS NEEDED FOR BLADDER SPASMS, STENT PAIN, Disp: , Rfl: pravastatin (Pravachol) 40 mg tablet, , Disp: , Rfl: tamsulosin (Flomax) 0.4 mg 24 hr capsule, TAKE 1 CAPSULE ORALLY EVERY EVENING FOR STONE PASSAGE, STENT PAIN, Disp: , Rfl: carvedilol (Coreg) 12.5 mg tablet, Take 6.25 mg by mouth., Disp: , Rfl: carvedilol (Coreg) 3.125 mg tablet, TAKE 1 TABLET BY MOUTH TWICE A DAY WITH FOOD FOR 30 DAYS, Disp: , Rfl: Social History: Social History Socioeconomic History Marital status: Spouse name: Not on file Number of children: Not on file Years of education: Not on file Highest education level: Not on file Occupational History Not on file Tobacco Use Smoking status: Former Packs/day: 2.00 Years: 40.00 Additional pack years: 0.00 Total pack years: 80.00 Types: Cigarettes Smokeless tobacco: Never (more content not included)... [facility] 08-13-2023 Note The patient is a ple asant 83-year-old male accompanied by his . He has complaints over the last about 3 years of a 30 pound weight loss which he attributes to multiple medical procedures need to occur over the last couple of years. This includes carotid artery stent on the left x 2 and a AAA aneurysm stent as well. More recently the patient has been having difficulties over the last couple of months with intermittent episodes of abdominal pain. He tells me this comes and goes. It usually occurs after meals but has not noticed any particular foods that set it off. Can last anywhere from 15 to 20 minutes up to a couple hours at a time. The pain is in the epigastric and bilateral upper quadrant areas. He also has some sensation of heartburn reflux. He occasionally has some sensation of dyspnea at the same time. He denies any fevers or chills nausea or vomiting or any jaundice. He tells me occasionally takes some Tums which helped partially but not completely. Of note he does have a previous history of peptic ulcer disease many years ago. Secondary to the symptoms the patient underwent ultrasound of the right upper quadrant. This shows the liver and pancreatic head to be unremarkable but he has about a 2.6 cm mass in the gallbladder. This does not move and is fixed to the wall. He presents at this time for evaluation of this. I do have a copy of the report but would like to send for the actual films themselves as well. Past medical history is significant for aortic valve stenosis. Patient's last echo was in June of this year the ASHOK is 1 cm???. History History hypertension History of COVID History of some renal insufficiency History of BPH Past surgical history significant for fall with right femoral ORIF while playing [employer] Abdominal aortic stent Left carotid artery stent x 2 Left-sided kidney lithotripsy x 2 and a prostate procedure, he is not sure which one, for his BPH. Current medications are Aspirin. The patient was previously on Plavix after stents but has been on them for some time Nitroglycerin as needed [facility] vitamin D capsule Cozaar Imdur Protocol Coreg Allergies are to SHALINI inhibitors IVP dye Iodine Tetanus Gadolinium with some itching On physical examination thin otherwise healthy appearing male in no acute distress Fairly tanned Lung excursions good Abdomen is flat soft nontender including right upper quadrant with even deep palpation. There is no obvious palpable masses and no organomegaly. He has no previous abdominal scars. Impression/recommendation Discussed with the patient that although he does have a gallbladder mass however the symptoms seem to be related to possible peptic ulcer disease or reflux. I would have him try H2 patel proton pump inhibitor 20 mg twice daily for about a week or so and see if this helps with the symptomatology. Similar symptoms also could be secondary to this gallbladder mass and with the size of this mass will be suspicious for the possibility of a gallbladder malignancy. Will send to [facility] to see if the actual film from the ultrasound can be sent. Spoke with our hepatobiliary specialist, Dr. Bryant, who would be happy to also see the patient. She request MRI MRCP and we will order this stat and then see if she can see the patient next Wednesday. Discussed with patient this will have to be resected for removal of the gallbladder and likely frozen section and if this is indeed a malignancy a lot of patients do need resection of the liver bed and lymph node evaluation as well. [facility] 05-04-2023 Hospital Discharg e instructions Patient Education 05/04/2023 11:46:04 Dietary Guidelines to Help Prevent Kidney Stones Dietary Guidelines to Help Prevent Kidney Stones Kidney stones are deposits of minerals and salts that form inside your kidneys. Your risk of developing kidney stones may be greater depending on your diet, your lifestyle, the medicines you take, and whether you have certain medical conditions. Most people can lower their risks of developing kidney stones by following these dietary guidelines. Your dietitian may give you more specific instructions depending on your overall health and the type of kidney stones you tend to develop. What are tips for following this plan? Reading food labels Choose foods with no salt added or low-salt labels. Limit your salt (sodium) intake to less than 1,500 mg a day. Choose foods with calcium for each meal and snack. Try to eat about 300 mg of calcium at each meal. Foods that contain 200 500 mg of calcium a serving include: ?8 oz (237 mL) of milk, souemoj-ljqmljfgeyhv-dvwax milk, and calcium-fortifiedfruit juice. Calcium-fortified means that calcium has been added to these drinks. ?8 oz (237 mL) of kefir, yogurt, and soy yogurt. ?4 oz (114 g) of tofu. ?1 oz (28 g) of cheese. ?1 cup (150 g) of dried figs. ?1 cup (91 g) of cooked broccoli. ?One 3 oz (85 g) can of sardines or mackerel. Most people need 1,000 1,500 mg of calcium a day. Talk to your dietitian about how much calcium is recommended for you. Shopping Buy plenty of fresh fruits and vegetables. Most people do not need to avoid fruits and vegetables, even if these foods contain nutrients that may contribute to kidney stones. When shopping for convenience foods, choose: ?Whole pieces of fruit. ?Pre-made salads with dressing on the side. ?Low-fat fruit and yogurt smoothies. Avoid buying frozen meals or prepared deli foods. These can be high in sodium. Look for foods with live cultures, such as yogurt and kefir. Choose high-fiber grains, such as whole-wheat breads, oat bran, and wheat cereals. Cooking Do not add salt to food when cooking. Place a salt shaker on the table and allow each person to add their own salt to taste. Use vegetable protein, such as beans, textured vegetable protein (TVP), or tofu, instead of meat in pasta, casseroles, and soups. Meal planning Eat less salt, if told by your dietitian. To do this: ?Avoid eating processed or pre-made food. ?Avoid eating fast food. Eat less animal protein, including cheese, meat, poultry, or fish, if told by your dietitian. To do this: ?Limit the number of times you have meat, poultry, fish, or cheese each week. Eat a diet free of meat at least 2 days a week. ?Eat only one serving each day of meat, poultry, fish, or seafood. ?When you prepare animal proteins, cut pieces into small portion sizes. For most meat and fish, one serving is about the size of the palm of your hand. Eat at least five servings of fresh fruits and vegetables each day. To do this: ?Keep fruits and vegetables on hand for snacks. ?Eat one piece of fruit or a handful of berries with breakfast. ?Have a salad and fruit at lunch. ?Have two kinds of vegetables at dinner. You may be told to limit foods that are high in a substance called oxalate. These include: ?Spinach (cooked), rhubarb, beets, sweet potatoes, and [place] chard. ?Peanuts. ?Potato chips, qatari fries, and baked potatoes with skin on. ?Nuts and nut products. ?Chocolate. If you regularly take a diuretic medicine, make sure to eat at least 1 or 2 servings of fruits or vegetables that are high in potassium each day. These include: ?Avocado. ?Banana. ?[place], prune, carrot, or tomato juice. ?Baked potato. ?Cabbage. ?Beans and split peas. Lifestyle Drink enough fluid to keep your urine pale yellow. This is the most important thing you can do. Spread your fluid intake throughout the day. If you drink alcohol: ?Limit how much you have to: ?0 1 drink a day for women who are not . ?0 2 drinks a day for men. ?Know how much alcohol is in your drink. In the [place] one drink equals one 12 oz bottle of beer (355 mL), one 5 oz glass of wine (148 mL), or one 1 oz glass of hard liquor (44 mL). Lose weight if told by your health care provider. Work with your dietitian to find an eating plan and weight loss strategies that work best for you. General information Talk to your health care provider and dietitian about taking daily supplements. Depending on your health and the cause of your kidney stones, you may be told: ?Do not take high-dose supplements of vitamin C (1,000 mg a day or more). ?To take a calcium supplement. ?To take a daily probiotic supplement. ?To take other supplements such as magnesium, fish oil, or vitamin B6. Take pavp-cgw-uvqhvse and prescription medicines only as told by your health care provider. These include supplements. What foods should I limit? Limit your intake of the following foods, or eat them as told by your dietitian. Vegetables Spinach. Rhubarb. Beets. Canned vegetables. Pickles. Olives. Baked potatoes with skin. Grains Wheat bran. Baked goods. Salted crackers. Cereals high in sugar. Meats and other proteins Nuts. Nut butters. Large portions of meat, poultry, or fish. Salted, precooked, or cured meats, such as sausages, meat loaves, and hot dogs. Dairy Cheeses. Beverages Regular soft drinks. Regular vegetable juice. Seasonings and condiments Seasoning blends with salt. Salad dressings. Soy sauce. Ketchup. Barbecue sauce. Other foods Canned soups. Canned pasta sauce. Casseroles. Pizza. Lasagna. Frozen meals. Potato chips. Hungarian fries. The items listed above may not be a complete list of foods and beverages you should limit. Contact a dietitian for more information. What foods should I avoid? Talk to your dietitian about specific foods you should avoid based on the type of kidney stones you have and your overall health. Fruits Grapefruit. The item listed above may not be a complete list of foods and beverages you should avoid. Contact a dietitian for more information. Summary Kidney stones are deposits of minerals and salts that form inside your kidneys. You can lower your risk of kidney stones by making changes to your diet. The most important thing you can do is drink enough fluid. Drink enough fluid to keep your urine pale yellow. Talk to your dietitian about how much calcium you should have each day, and eat less salt and animal protein as told by your dietitian. This information is not intended to replace advice given to you by your health care provider. Make sure you discuss any questions you have with your health care provider. Document Revised: 06/04/2022 Document Reviewed: 06/04/2022 [employer] Patient Education 2022 [employer] Follow Up Care 04/29/2023 08:42:17 With:Mo LEIJA, Ivelisse Schreiber URL, URO Address: When:Within 4 Month(s) Comments:w/KEDAR [facility] 04-14-2023 Evaluation note Encounter Date Diagnosis Assessment [...] this time and surgery could be scheduled. [facility] Other 02-07-2024 Evaluation note* Encounter Date Diagnosis [...] Z01.818) I have seen and examined Mr Collin for preoperative evaluation. He had experienced extreme elevation of his BP during his previous procedure. Since this episode, his medications have been adjusted, bringing his BP under adequate control to proceed with his next procedure. [facility] Other 02-01-2024 Evaluation note* Encounter Date Diagnosis Assessment Notes Treatment Notes Treatment Clinical Notes Apr, Primary hypertension (ICD-10 - I10) [facility] Other 01-29-2024 Evaluation note* Encounter Date Diagnosis Assessment Notes Treatment Notes Treatment Clinical Notes Mar, Primary hypertension (ICD-10 - I10) [facility] Other 01-28-2024 Evaluation note* Encounter Date Diagnosis Assessment Notes Treatment Notes Treatment Clinical Notes Mar, Primary hypertension (ICD-10 - I10) [facility] Other 01-22-2024 Evaluation note* Encounter Date Diagnosis [...] has resolved INstructed on increasing fluids [facility] Other 11-08-2023 Hospital Discharge instructions Patient Education [...] urethra. Follow these instructions at home: Take ehvx-ovq-knqitmq and prescription medicines only as told by [...] provider. Document Revised: 09/10/2021 Document Reviewed: 09/10/2021 [employer] Patient Education 2022 [employer]. Follow Up Care 10/07/2022 09:26:45 With:Mo LEIJA, AKILAH Smith, URO Address: When: Unknown [facility] 09-05-2023 Evaluation note* Encounter Date Diagnosis [...] in the office with a CT scan. [facility] Other 08-02-2023 Hospital Discharge instructions Patient Education [...] urethra. Follow these instructions at home: Take vqpu-kaj-hobwkcd and prescription medicines only as told by [...] provider. Document Revised: 09/10/2021 Document Reviewed: 09/10/2021 [employer] Patient Education 2022 [employer] Follow Up Care 07/28/2022 10:29:31 With:Mo LEIJA, AKILAH Smith, URO Address: When:Within 3 Day(s) [facility] 05-30-2023 Evaluation note* Encounter Date Diagnosis [...] a couple of weeks. These have resolved. [facility] Other 05-04-2023 Discharge summary Author Raul Quan [facility] July 09, 2022 12:08pm Note Date/Time July 09, 2022 8:07am [facility] [address] [place] [address] Discharge Summary Signed Patient: Chico Baker MR#: [id number] : 1940 Acct:[id number] Age/Sex: 82 / M Adm Date: 3 Loc: Room: [address] [place] [address]: Raul Quan MD Copies to: [...] midline, neck is supple, no JVD. 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 He has a little [...] <Electronically signed by MD Raul Quan> 07/09/22 1207 [facility] Work Phone: 1(516) 392-979305-03-2023 History and physical note Author Raul Quan [facility] July 08, 2022 11:06am Note Date/Time July 08, 2022 11:06a m [facility] [address] [place] [address] Vascular Surgery H&P Signed Patient: Chico Baker MR#: [id number] : 1940 Acct:[id number] Age/Sex: 82 / M Adm Date: 3 Loc: Room: [address] [place] [address] Type: ADM IN Attending Dr: Raul Quan [...] signed by MD Raul Quan> 07/08/22 1106 [facility] Work Phone: 1(975) 240-470904-19-2023 Hospital Discharge instructions Patient Education 06/24/2022 09:42:41 [...] Follow these instructions at home: Medicines Take wxrr-uhc-sucepvz and prescription medicines only as told by [...] or the blood stops without treatment. Take mcdb-hlo-adtqmoo and prescription medicines only as told by your health care provider. Drink enough fluid to keep your urine pale yellow. This information is not intended to replace advice given to you by your health care provider. Make sure you discuss any questions you have with your health care provider. Document Revised: 10/23/2020 Document Reviewed: 10/23/2020 [employer] Patient Education 2022 [employer]. 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 Walk daily Inspect feet daily for cuts [facility] Other 03-14-2023 Evaluation note* Encounter Date Diagnosis [...] agree with plan, and denies any questions. [facility] Other 03-08-2023 Evaluation note* Encounter Date Diagnosis Assessment Notes Treatment Notes Treatment Clinical Notes May, Carotid stenosis, bilateral (ICD-10 - I65.23) CTA: < 50% right, 80% left [facility] Other 03-08-2023 Evaluation note* Encounter Date Diagnosis Assessment Notes Treatment Notes Treatment Clinical Notes May, Carotid stenosis, bilateral (ICD-10 - I65.23) CTA: < 50% right, 70% left - 05/2022 [facility] Other 02-08-2023 Hospital Discharge instructions Patient Education [...] prostate. Follow these instructions at home: Take ojuz-sqq-haidkhb and prescription medicines only as told by [...] 02/19/2001 Document Revised: 05/07/2018 Document Reviewed: 11/12/2016 [employer] Patient Education 2020 [employer]. Follow Up Care 02/11/2022 10:55:52 With:Mo LEIJA, AKILAH Smith, URO Address: When: Unknown [facility]-07-[facility] Evaluation note* Encounter Date Diagnosis Assessment Notes Treatment Notes Treatment Clinical Notes Apr, Primary hypertension (ICD-10 - I10) [facility] Other 01-03-2023 Evaluation note* Encounter Date Diagnosis [...] to perform simultaneously to minimize contrast exposure. [facility] Other 12-21-2022 Hospital Discharge instructions Patient Education 02/25/2022 12:02:33 Rash, Adult, Ialo-xw-Fpzs Rash, Adult A rash is a change [...] with your condition: Medicine Take or apply khzh-pbn-ueaujbk and prescription medicines only as told by [...] the rash from spreading. Take or apply qsym-rky-sbrnskt and prescription medicines only as told by [...] 08/10/2008 Document Revised: 06/16/2019 Document Reviewed: 09/26/2018 [employer] Patient Education 2019 [employer]. Follow Up Care 02/18/2022 14:33:21 With:Ivelisse Hassan Address:Unknown When: Unknown Comments:Appointment has already been scheduled [facility] 12-14-2022 Hospital Discharge instructions Patient Education [...] including vitamins, herbs, eye drops, creams, and nolx-euc-zanuojh medicines. Any problems you or family members [...] provider tells you to take them. Taking dhzb-wez-grorklf medicines, vitamins, herbs, and supplements. Eating and [...] 02/22/2006 Document Revised: 06/14/2019 Document Reviewed: 11/23/2018 [employer] Patient Education 2020 [employer]. Follow Up Care 02/17/2022 16:33:06 With:ARASH BUCHANAN, IVA Ellis, URL Address: [address] [place] [address] [facility] [place] [address] [phone] When:02/25/2022 [facility] 12-07-2022 Hospital Discharge instructions Patient Education [...] prostate. Follow these instructions at home: Take rvyw-wpf-gnzggfz and prescription medicines only as told by [...] 02/19/2001 Document Revised: 05/07/2018 Document Reviewed: 11/12/2016 [employer] Patient Education 2020 [employer] Follow Up Care 01/28/2021 10:15:04 With:Mo LEIJA, AKILAH Smith, URO Address: When:6 weeks [facility] 12-01-2022 Discharge summary Author Raul Quan [facility] February 05, 2022 10:08am Note Date/Time February 05, 2022 7 :52am [facility] [address] [place], [place] [id number] Discharge Summary Signed Patient: Chico Baker MR#: [id number] : 1940 Acct:[id number] Age/Sex: 81 / M Adm Date: 2 Loc: 4N Room: 6N5362-[address]: Raul Quan MD Copies to: [...] % (Auto) 69.5, Lymph % (Auto) 14.4, [place] % (Auto) 14.8, Eos % (Auto) 0.7, Baso % (Auto) 0.6, Nucleat RBC Rel Count 0.1, Neut # (Auto) 7.1, Lymph # (Auto) 1.5, [place] # (Auto) 1.5 H, Eos # (Auto) 0.1, Baso # (Auto) 0.1 02/04/22 08:25: Corrected WBC 9.3, Uncorrected WBC Count 9.3, RBC 4.10, Hgb 12.4L, Hct 37.5 L, MCV 91.5, MCH 30.2, MCHC 33.0, RDW 13.7, Plt Count 198, MPV 8.5, Neut % (Auto) 70.1, Lymph % (Auto) 16.4, [place] % (Auto) 12.0, Eos % (Auto) 0.9, Baso % (Auto) 0.6, Nucleat RBC Rel Count 0.0, Neut # (Auto) 6.5, Lymph # (Auto) 1.5, [place] # (Auto) 1.1 H, Eos # (Auto) [...] signed by MD Raul Quan> 02/05/22 1008 [facility] Work Phone: 1(674) 645-512111-15-2022 Evaluation note* Encounter Date Diagnosis Assessment Notes [...] we will evaluate him for left TCAR. [facility] Other 10-31-2022 Evaluation note* Encounter Date Diagnosis [...] complete and CT confirms candidacy for TCAR [facility] Other 09-19-2022 Evaluation note* Encounter Date Diagnosis Assessment Notes Treatment Notes Treatment Clinical Notes Nov, AAA (abdominal aortic aneurysm) without rupture (ICD-10 - I71.4) This patient is still recovering from his recent orthopedic procedures. He continues with physical therapy and although he is getting stronger, he remains quite fatigued and weak yet. He has an upcoming appointment with his statistician theoretical for preoperative risk assessment and stratification this next week. We will give him a few more weeks of physical therapy and have him back in a month or so to reschedule his AAA. He did tell me that he had some abdominal pain while in the nursing home facility and was taken to the [facility] where a CT of the abdomen was obtained. We will get these studies pushed over for review and comparison. He denies any abdominal pain today and tells me his appetite is pretty good. He knows to call us in the meantime with any issues. [facility] Other 07-26-2022 Evaluation note* Encounter Date Diagnosis [...] agrees with this plan, denies any questions. [facility] Other 07-11-2022 Evaluation note* Encounter Date Diagnosis [...] agrees with this plan, and denies questions. [facility] Other 07-11-2022 Evaluation note* Encounter Date Diagnosis [...] agrees with this plan, and denies questions. [facility] Other 05-23-2022 Evaluation note* Encounter Date Diagnosis [...] returns we will get baseline ankle-brachial indices. [facility] Other 10-06-2021 NoteHNO ID: [id number] Author: Power Catherine MD Service: ? Author Type: Physician Type: Progress Notes Filed: 12/11/2020 11:17 AM Note Text: [facility] OUTPATIENT VISIT DATE December 11, 2020 OUTPATIENT VISIT TYPE EST PRIMARY CARE PHYSICIAN: Shailesh Dunham (J[place]) [address] [place] [address] REFERRING PHYSICIAN Power Catherine [address] [facility] [address] CHIEF COMPLAINT: Patient presents with: Established Patient [...] up. Continue statin therapy. ? Power Catherine, [facility]02-11-2021 NotePatient Outreach (COVAMN) CHICO BAKER ([id number]) 1940 M Date Time Provider Department 04/18/20 RONALDS, KIMBERLEY KAUFFMAN During your visit today, we recorded the following information about you: Allergies As of Date: 04/18/2020 Noted Allergy Reaction SHALINI INHIBITORS 05/09/2015 16 - Unknown GADOLINIUM-CONTAINING CONTRAST ME*05/09/2015 16 - Unknown TETANUS VACCINES AND TOXOID 05/16/2015 16 - Unknown Date Reviewed: 10/18/2017 Reviewed by: Power Catherine - Fully Assessed Order(s):SARS-COVID VACCINE 1ST DOSE APPT [[id number]] Order #: [id number] FUTURE Prescriptions as of 04/18/2020 Sig: ASPIRIN [...] (None) Encounter Status:Closed by ISIDORO JOHNSON on 04/22/20[facility] Evaluation + Plan note Future Appointments Appointment Date:04/15/2022 08:45:00 AM Scheduled Provider:Ivelisse Hassan MD Location:[facility] Appointment Type:URO Office Visit [facility] evaluation + Plan note Future Appointments Appointment Date:04/15/2022 08:45:00 AM Scheduled Provider:Ivelisse Hassan MD Location:[facility] Appointment Type:URO Office Visit Diagnostic Tests Pending * Urine Culture [facility] Future Appointments Appointment Date:02/25/2022 11:00:00 AM Scheduled Provider:IVA ANTOINE PA-C Location:[facility] Appointment Type:URO Office Visit Appointment Date:04/15/2022 08:45:00 AM Scheduled Provider:Ivelisse Hassan MD Location:[facility] Appointment Type:URO Office Visit [facility] evaluation + Plan note Future Appointments Appointment Date:06/24/2022 09:30:00 AM Scheduled Provider:Ivelisse Hassan MD Location:[facility] Appointment Type:URO Office Visit [facility] evaluation + Plan note Future Appointments Appointment Date:01/13/2023 09:00:00 AM Scheduled Provider:Ivelisse Hassan MD Location:[facility] Appointment Type:URO Office Visit [facility] evaluation + Plan note Future Appointments Appointment Date:09/01/2023 11:00:00 AM Scheduled Provider:Ivelisse Hassan MD Location:[facility] Appointment Type:URO Office Visit [facility] Evaluation + Plan note Future Appointments Appointment Date:09/01/2023 11:00:00 AM Scheduled Provider:Ivelisse Hassan MD Location:[facility] Appointment Type:URO Office Visit Diagnostic Tests Pending * Calculi Analysis Urinary 05/04/23 [facility]* Diagnosis Onset Date Resolution Status AAA (abdominal aortic aneurysm) acute [facility] Work Phone: evaluation noteNo assessment information available [facility] Work Phone: evaluogjjm noteNo InformationNort [employer] Other evaluation note* Diagnosis Onset Date Resolution Status Left carotid stenosis acute [facility] Work Phone: evaluation note* Diagnosis Onset Date Resolution Status Hypercholesterolemia acute IFG (impaired fasting glucose) acute Kidney stones acute Nonrheumatic aortic (valve) stenosis acute Peripheral artery disease [place] Primary hypertension acute [facility] Work Phone: evaluation note* Diagnosis Onset Date Resolution Status Gallbladder polyp acute Hypercholesterolemia acute IFG (impaired fasting glucose) acute Nonrheumatic aortic (valve) stenosis acute Paget's disease of bony pelvis acute Peripheral artery disease [place] Primary hypertension acute [facility] Work Phone: evaluigliy note* Diagnosis Onset Date Resolution Status Gallbladder polyp acute Hypercholesterolemia acute IFG (impaired fasting glucose) acute Nonrheumatic aortic (valve) stenosis acute Paget's disease of bony pelvis acute Peripheral artery disease [place] Primary hypertension acute AAA (abdominal aortic aneurysm) without rupture acute [facility] Work Phone: evaluation note* Diagnosis Onset Date Resolution Status Gallbladder polyp acute Hypercholesterolemia acute IFG (impaired fasting glucose) acute Nonrheumatic aortic (valve) stenosis acute Paget's disease of bony pelvis acute Peripheral artery disease [place] Primary hypertension acute AAA (abdominal aortic aneurysm) without rupture acute AAA (abdominal aortic aneurysm) without rupture acute Benign prostatic hyperplasia with lower urinary tract symptoms acute Gallbladder polyp acute Hypercholesterolemia acute Mass of gallbladder acute Nonrheumatic aortic (valve) stenosis acute Paget's disease of bony pelvis acute Peripheral artery disease [place] Primary hypertension acute [facility] Work Phone: Evaluation note* Diagnosis Onset Date Resolution Status Hypercholesterolemia acute IFG (impaired fasting glucose) acute Nonrheumatic aortic (valve) stenosis acute Paget's disease of bony pelvis acute Peripheral artery disease [place] Primary hypertension acute AAA (abdominal aortic aneurysm) without rupture acute AAA (abdominal aortic aneurysm) without rupture acute Benign prostatic hyperplasia with lower urinary tract symptoms acute Hypercholesterolemia acute Mass of gallbladder acute Nonrheumatic aortic (valve) stenosis acute Paget's disease of bony pelvis acute Peripheral artery disease [place] Primary hypertension acute AAA (abdominal aortic aneurysm) without rupture acute Hypercholesterolemia acute IFG (impaired fasting glucose) acute Mass of gallbladder acute Nonrheumatic aortic (valve) stenosis acute Peripheral artery disease [place] Primary hypertension acute Preop exam for internal medicine noneactive [facility] Work Phone: Evaluation note* Diagnosis Onset Date Resolution Status Hypercholesterolemia acute IFG (impaired fasting glucose) acute Nonrheumatic aortic (valve) stenosis acute Paget's disease of bony pelvis acute Peripheral artery disease [place] Primary hypertension acute AAA (abdominal aortic aneurysm) without rupture acute AAA (abdominal aortic aneurysm) without rupture acute Benign prostatic hyperplasia with lower urinary tract symptoms acute Hypercholesterolemia acute Mass of gallbladder acute Nonrheumatic aortic (valve) stenosis acute Paget's disease of bony pelvis acute Peripheral artery disease [place] Primary hypertension acute AAA (abdominal aortic aneurysm) without rupture acute Hypercholesterolemia acute IFG (impaired fasting glucose) acute Mass of gallbladder acute Nonrheumatic aortic (valve) stenosis acute Peripheral artery disease [facility] Primary hypertension acute Preop exam for internal medicine noneactive AAA (abdominal aortic aneurysm) without rupture acute Benign prostatic hyperplasia with lower urinary tract symptoms acute Hypercholesterolemia acute Mass of gallbladder acute Nonrheumatic aortic (valve) stenosis acute Paget's disease of bony pelvis acute Peripheral artery disease [place] Primary hypertension acute [facility] Work Phone: History general Narrative - Reported* Type Description Date Medical History hypercholesterolemia Medical History abdominal aortic aneurysm Medical History Carotid stenosis Medical History PAD Surgical History TURP Surgical History knee arthroscopy LEFT Surgical History Vein stripping Hospitalization History See Above [employer] Other History general Narrative - Reported* Type Description Date Medical History hypercholesterolemia Medical History abdominal aortic aneurysm Medical History Carotid stenosis Medical History PAD Surgical History TURP Surgical History knee arthroscopy LEFT Surgical History Vein stripping Surgical History RT FEMUR FX WITH ARABELLA PLACEMENT Hospitalization History See Above [facility] Other Hiskibm general Narrative - Reported* Type Description Date Medical History hypercholesterolemia Medical History abdominal aortic aneurysm Medical History Carotid stenosis Medical History PAD Medical History [ ] Surgical History TURP Surgical History knee arthroscopy LEFT Surgical History Vein stripping Surgical History RT FEMUR FX WITH ARABELLA PLACEMENT Surgical History EVAR 02/04/2022 Surgical History [ ] Hospitalization History See Above [facility] Other history general Narrative - Reported* Type [...] History COLONOSCOPY 2019 Hospitalization History See Above [facility] Other Hislgjo general Narrative - Reported* Type Description Date [...] Left TCAR 07/2022 Hospitalization History See Above [facility] Other Hisovqm general Narrative - Reported* Type Description Date [...] Left TCAR 07/2022 Hospitalization History See Above [facility] Other Hisbxhp general Narrative - Reported* Type Description Date [...] left ESWL 03/2023 Hospitalization History See Above [facility] Other Hospital course Narrative No data available for this section [facility] Discharge instructions No data available for this section [facility] Author Raul Quan [facility] October 15, 2021 4:31pm Note Date/Time October 15, 2021 4: 31pm [facility] ENTER [address] [place] [address] Vascular Surgery Progress Note Signed Patient: Chico Baker MR#: [id number] : 1940 Acct:[id number] Age/Sex: 81 / M Adm Date: 2 Loc: 4N Room: [address] [place] [address] Type: DIS IN Attending Dr: Raul Quan [...] proceed with evaluation here. I will contact [facility] to performoutpatient cardiac evaluation and then he will be rescheduled when he is cleared. Code(s): I71.4 - Abdominal aortic aneurysm, without rupture Status: Acute Documented By: Raul Quan MD 10/15/21 162 9 Signed By: <Electronically signed by MD Raul Quan> 10/15/21 1631 [facility] Work Phone: progress note Author Pb Zurita [facility] October 16, 2021 5:41am Note Date/Time October 16, 2021 5: 41am [facility] [address] [place] [address] Anesthesia Progress Note Signed Patient: Chico Baker MR#: [id number] : 1940 Acct:[id number] Age/Sex: 81 / M Adm Date: 2 Loc: 4N Room: [address] [place] [address] Type: DIS IN Attending Dr: Raul Quan MD Copies to: ~ Anesthesia Progress Note Narrative Narrative: Patient for EVAR today for 5+ centimeter infrarenal AAA. Past medical history hypertension, moderate aortic stenosis, and coronary artery disease. Review of medical records and discussion with indicates patient had stress test 2009 positive for infarct and ischemia at which time he was referred to [facility] and had cardiac cath. Medical management was apparently chosen. No interval events,testing, or intervention. Patient has been asymptomatic but sedentary and poor historian. Advised patient and family to see statistician theoretical for consideration of preop stress testing. Discussed with surgeon Documented By: Pb Zurita MD 10/16/21 7935 Signed By: <Electronically signed by bP Zurita MD> 10/16/21 0598 [facility] Work Phone: Progrtwr note No data available for this section [facility] Reason for Referral No Reason for [...] section No data available for this section Assessments Findings Encounter Date Encounter for Immunization 1st COVID Vaccine manuel bueno Lisandra Christos PharmD 06/13/2020 Instructions Instructions not supported for this document type No Instructions Recorded History of Present Illness History of Present Illness not supported for this document type No History of Present Illness Recorded Family History No Family History Records Found Relationship Condition Age at Onset Recorded Date/T tad sister Diabetes mellitus Unknown brother Heart problem Unknown Relationship Condition Age at Onset Recorded Date/T tad sister Diabetes mellitus Unknown brother Heart problem Unknown father Unknown Heart disease Unknown family member Unknown Not Specified Unknown Relationship Condition Age at Onset Recorded Date/T tad sister Diabetes mellitus Unknown Malignant neoplasm Unknown brother Heart problem Unknown father Unknown Heart disease Unknown Not Specified Unknown Relationship Condition Age at Onset Recorded Date/T tad sister Diabetes mellitus Unknown Malignant neoplasm Unknown brother Heart problem Unknown father Unknown Heart disease Unknown mother Unknown Review of System Review of Systems [...] Left carotid stenosi s Chief Complaint i65.23 Chief Complaint Tbh Follow Up Amb Documentation i71.4 Chief Complaint Tbh Follow Up Amb Documentation i71.4 BP check Reason for Visit Hypercholesterolemia IFG (impaired fasting glucose) Kidney stones Nonrheumatic aortic (valve) stenosis Peripheral artery disease Primary hypertension Chief Complaint Amb Documentation i71.4 BP check S/P EVAR; CTA [facility] Reason for Visit Gallbladder polyp Hypercholesterolemia IFG (impaired fasting glucose) 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 Peripheral artery disease Primary hypertension Chief Complaint i71.4 BP check S/P EVAR; CTA [facility] Nonrheumatic aortic stenosis Reason for Visit Gallbladder polyp Hypercholesterolemia IFG (impaired fasting glucose) 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 Peripheral artery disease Primary hypertension AAA (abdominal aortic aneurysm) without rupture Chief Complaint i71.4 BP check S/P EVAR; CTA [facility] Nonrheumatic aortic stenosis Reason for Visit Gallbladder polyp Hypercholesterolemia IFG (impaired fasting glucose) 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 Peripheral artery disease Primary hypertension AAA (abdominal aortic aneurysm) without rupture AAA (abdominal aortic aneurysm) without rupture Benign prostatic hyperplasia with lower urinary tract symptoms Gallbladder polyp Hypercholesterolemia Mass of gallbladder 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 Peripheral artery disease Primary hypertension Chief Complaint i71.4 BP check S/P EVAR; CTA [facility] Nonrheumatic aortic stenosis sugical clearance, gall bladder removal Reason for Visit Hypercholesterolemia IFG (impaired fasting glucose) 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 Peripheral artery disease Primary hypertension AAA (abdominal aortic aneurysm) without rupture AAA (abdominal aortic aneurysm) without rupture Benign prostatic hyperplasia with lower urinary tract symptoms Hypercholesterolemia Mass of gallbladder 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 Peripheral artery disease Primary hypertension AAA (abdominal aortic aneurysm) without rupture Hypercholesterolemia IFG (impaired fasting glucose) Mass of gallbladder Nonrheumatic aortic (valve) stenosis Peripheral artery disease Primary hypertension Preop exam for internal medicine Chief Complaint i71.4 BP check S/P EVAR; CTA [facility] Nonrheumatic aortic stenosis sugical clearance, gall bladder removal I35.0 Reason for Visit Hypercholesterolemia IFG (impaired fasting glucose) 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 Peripheral artery disease Primary hypertension AAA (abdominal aortic aneurysm) without rupture AAA (abdominal aortic aneurysm) without rupture Benign prostatic hyperplasia with lower urinary tract symptoms Hypercholesterolemia Mass of gallbladder 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 Peripheral artery disease Primary hypertension AAA (abdominal aortic aneurysm) without rupture Hypercholesterolemia IFG (impaired fasting glucose) Mass of gallbladder Nonrheumatic aortic (valve) stenosis Peripheral artery disease Primary hypertension Preop exam for internal medicine Chief Complaint i71.4 BP check S/P EVAR; CTA [facility] Nonrheumatic aortic stenosis sugical clearance, gall bladder removal I35.0 2 weeks Reason for Visit Hypercholesterolemia IFG (impaired fasting glucose) 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 Peripheral artery disease Primary hypertension AAA (abdominal aortic aneurysm) without rupture AAA (abdominal aortic aneurysm) without rupture Benign prostatic hyperplasia with lower urinary tract symptoms Hypercholesterolemia Mass of gallbladder 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 Peripheral artery disease Primary hypertension AAA (abdominal aortic aneurysm) without rupture Hypercholesterolemia IFG (impaired fasting glucose) Mass of gallbladder Nonrheumatic aortic (valve) stenosis Peripheral artery disease Primary hypertension Preop exam for internal medicine AAA (abdominal aortic aneurysm) without rupture Benign prostatic hyperplasia with lower urinary tract symptoms Hypercholesterolemia Mass of gallbladder 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 Peripheral artery disease Primary hypertension Additional Source Comments Medical History (unrecognize d [...] AUTHOR 04/02/2021 [facility] DATE CREATED AUTHOR AUTHOR'S ORGANIZ ATION 10/28/2021 [facility] DATE CREATED AUTHOR AUTHOR'S ORGANIZ ATION 04/14/2022 [facility] DATE CREATED AUTHOR AUTHOR'S ORGANIZ ATION 05/13/2023 [facility] DATE CREATED AUTHOR AUTHOR'S ORGANIZ ATION 07/29/2023 [facility] d[facility] Specialists EPIC DATE CREATED AUTHOR AUTHOR'S ORGANIZ ATION 09/08/2023 [facility] DATE CREATED AUTHOR AUTHOR'S ORGANIZ ATION 09/22/2023 [facility] REASON FOR VISIT (unrecogniz ed section and content) REF BY DR DUNHAM FOR AAA, PAD AND CAROTID STENOSIS, Needs a new vascular surgeon7 WK FOLLOW UP; SHYANNE'S, ABDOMINAL, CAROTID WK FOLLOW UP; SHYANNE'S, ABDOMINAL, CAROTID 08/27/21FOLLOW UP AFTER CTA [facility] 09/18/21-AAAAAA see pt post femur fx rt [...] Active Member Role Status Dates Shailesh Dunham DO Primary Care Provider Active Team Status: Active Member Role Status Dates Shailesh Dunham DO Primary Care Provide r, Attending Provider Active Start: April 20, 2023 Team Status: Active Member Role Status Dates Shailesh Dunham DO Primary Care Provider Active Start: April 26, 2023 CARLOS A Buenrostro Attending Provider Active St art: April 26, 2023 Team Status: Inactive Member Role Status Dates Shailesh Dunham DO Primary Care Provider Active Start: June 16, 2023 End: June 16, 2023 Raul Quan MD Attending Provider Active S tart: June 16, 2023 End: June 16, 2023 Team Status: Inactive Member Role Status Dates Shailesh Dunham DO Primary Care Provide r, Attending Provider Active Start: June 22, 2023 End: June 22, 2023 Team Status: Inactive Member Role Status Dates Shailesh Dunham DO Primary Care Provider Active Start: July 05, 2023 End: July 05, 2023 Raul Quan MD Attending Provider Active S tart: July 05, 2023 End: July 05, 2023 Team Status: Inactive Member Role Status Dates Shailesh Dunham DO Primary Care Provider Active Raul Quan MD Attending Provider Active Team Status: Inactive Member Role Status Kirk Dunham DO Primary Care Provider Active Raul Quan MD Admit Provider, Attending Provide r Active Team Status: Inactive Member Role Status Dates Shailesh Dunham DO Primary Care Provider Active KB Wang Attending Provider Active Team Status: Inactive Member Role Status Kirk Dunham DO Attending Provider Active Sta rt: March 29, 2023 End: March 29, 2023 Team Status: Active Member Role Status Dates Sheri Christiansen MD Seed Yeast Operator Active Shailesh Dunham DO Primary Care Provider Active Team Status: Inactive Member Role Status Kirk Dunham DO Primary Care Provide r, Referring Provider Active Start: August 19, 2023 End: August 19, 2023 Sheri Christiansen MD Attending Provider Active Sta rt: August 19, 2023 End: August 19, 2023 Team Status: Active Member Role Status Kirk Dunham DO Primary Care Provider Active Start: August 19, 2023 Sheri Christiansen MD Attending Provider Active Sta rt: August 19, 2023 Team Status: Inactive Member Role Status Kirk Dunham DO Primary Care Provider Active Start: August 19, 2023 End: August 19, 2023 Sheri Christiansen MD Attending Provider Active Sta rt: August 19, 2023 End: August 19, 2023 Team Status: Inactive Member Role Status Kirk Dunham DO Primary Care Provide r, Attending Provider Active Start: August 27, 2023 End: August 27, 2023 Team Status: Inactive Member Role Status Kirk Dunham DO Primary Care Provider Active Start: August 31, 2023 End: August 31, 2023 Sheri Christiansen MD Attending Provider Active Sta rt: August 31, 2023 End: August 31, 2023 Team Status: Inactive Member Role Status Kirk Dunham DO Primary Care Provider Active Start: September 03, 2023 End: September 03, 2023 Sheri Christiansen MD Attending Provider Active Sta rt: September 03, 2023 End: September 03, 2023 Goals (unrecognized section and content) Goals may [...] BE BASED ON THE PRIMARY CLINICAL RECORDS. [facility] [employer] [facility]. provides no warranty or guarantee of the accuracy or completeness of information in this document.
[2023-09-22 20:59] VITALS: BP 185/75; PULSE 66; TEMP 36.7; O2SAT 98; BMI 22.6
--- NOTE | 2023-09-22 21:13 | XR_ITS ---
The [address] [address] Patient Name: CHICO BAKER MRN: [id number] date: 1940 Sex: M Assigned Patient Location: ER Current Patient Location: Accession/Order Number: [id number] Exam Date: 09/22/2023 21:20 Report Date: 09/22/2023 22:51 At the request of: DEEJAY HAGER Procedure: XR shoulder LT min 2V EXAM: XR shoulder LT min 2V HISTORY: pain, injury COMPARISON: None. TECHNIQUE: 4 views of the left shoulder FINDINGS: Acute comminuted displaced distal left clavicle fracture is seen with fracture extension to the left acromioclavicular joint. The left acromioclavicular and glenohumeral joints appear normally aligned. XR/XR shoulder LT min 2V IMPRESSION: Acute comminuted displaced distal left clavicle fracture is seen with fracture extension to the left acromioclavicular joint. Electronically authenticated by: CUONG GRAHAM Date: 09/22/2023 22:51
--- NOTE | 2023-09-22 21:50 | ED_ITS ---
HPI HPI - Extremity Injury (Upper) General Chief Complaint: Extremity Injury, Upper Stated Complaint: Extremity Injury, Upper Time Seen by Provider: 09/22/23 21:11 Source: patient and family Mode of arrival: walk-in Limitations: no limitations History of Present Illness HPI narrative: 83-year-old male presents to the emergency department with and son with complaint of left shoulder pain. Injured about an hour prior to arrival when he fell while getting out of a golf cart, landing on the shoulder. Complains of pain, tenderness, swelling. Denies any other injury, motor or sensory changes, paresthesias. Quality:?Blunt trauma Severity:?Mild Timing:?Injury occurred shortly prior to arrival, constant Context: Normal setting and activity? Modifying factors:?Pain worse with palpation, movement Associated symptoms: Swelling Related Data Home Medications ?Medication ?Instructions ?Recorded ?Confirmed isosorbide dinitrate 30 mg tablet 30 mg PO DAILY 03/12/23 04/20/23 pravastatin 40 mg tablet 40 mg PO DAILY 03/12/23 04/20/23 cholecalciferol (vitamin D3) 25 1,000 unit PO BID 03/24/23 04/20/23 mcg (1,000 unit) capsule carvedilol 25 mg tablet (Coreg) 25 mg PO BID 04/04/23 04/20/23 losartan 100 mg tablet 50 mg PO DAILY 04/04/23 04/20/23 amlodipine 2.5 mg tablet 2.5 mg PO QPM 04/20/23 04/20/23 Previous Rx's ?Medication ?Instructions ?Recorded tamsulosin 0.4 mg capsule 0.4 mg PO QPM stone passage, stent 03/24/23 pain #30 caps nitrofurantoin 100 mg PO BID Start morning of 04/28/23 monohydrate/macrocrystals 100 mg stent removal next week 1 day #2 capsule (Macrobid) caps Allergies Allergy/AdvReac Type Severity Reaction Status Date / Time SHALINI Inhibitors Allergy Unknown Unknown Verified 09/22/23 21:07 Iodinated Contrast Media Allergy Unknown Hives Verified 09/22/23 21:07 iodine Allergy Unknown Hives Verified 09/22/23 21:07 tetanus toxoid, adsorbed Allergy Unknown Unknown Verified 09/22/23 21:07 Opioid HPI Opioid Management Most Recent Pain and Opioid Data: Last Pain Scale 8 09/22/23 21:55 Review of Systems ROS Constitutional Denies: fatigue or malaise Musculoskeletal Reports: extremity pain and extremity swelling Neurological Denies: numbness in extremities or weakness in extremities Endocrine Denies: fatigue or other (wound) [facility] Medical History (Updated 09/22/23 @ 21:49 by BEHAZD Tabares) Presence of internal carotid stent (~07/2022) ?Z95.828 - Presence of other vascular implants and grafts (ICD-10) Aortic valve stenosis ?I35.0 - Nonrheumatic aortic (valve) stenosis (ICD-10) Heart murmur ?R01.1 - Cardiac murmur, unspecified (ICD-10) Carotid stenosis ?I65.29 - Occlusion and stenosis of unspecified carotid artery (ICD-10) Anemia ?D64.9 - Anemia, unspecified (ICD-10) Femur fracture (~10/2021) ?S72.90XA - Unspecified fracture of unspecified femur, initial encounter for closed fracture (ICD-10) AAA (abdominal aortic aneurysm) ?I71.40 - Abdominal aortic aneurysm, without rupture, unspecified (ICD-10) Heartburn ?R12 - Heartburn (ICD-10) Delayed recovery from anesthesia Urethral stricture ?N35.919 - Unspecified urethral stricture, male, unspecified site (ICD-10) Post-void dribbling ?N39.43 - Post-void dribbling (ICD-10) Penile rash ?R21 - Rash and other nonspecific skin eruption (ICD-10) Paget's disease Nocturia ?R35.1 - Nocturia (ICD-10) Incontinence ?R32 - Unspecified urinary incontinence (ICD-10) Microhematuria ?R31.29 - Other microscopic hematuria (ICD-10) Impotence ?N52.9 - Male erectile dysfunction, unspecified (ICD-10) Hypertension ?I10 - Essential (primary) hypertension (ICD-10) Hyperlipidemia ?E78.5 - Hyperlipidemia, unspecified (ICD-10) Kidney stones ?N20.0 - Calculus of kidney (ICD-10) Gross hematuria ?R31.0 - Gross hematuria (ICD-10) Erectile dysfunction ?N52.9 - Male erectile dysfunction, unspecified (ICD-10) Dysuria ?R30.0 - Dysuria (ICD-10) BPH (benign prostatic hyperplasia) ?N40.0 - Benign prostatic hyperplasia without lower urinary tract symptoms (ICD-10) Asymptomatic microscopic hematuria ?R31.21 - Asymptomatic microscopic hematuria (ICD-10) ASHD (arteriosclerotic heart disease) ?I25.10 - Atherosclerotic heart disease of [place] coronary artery without angina pectoris (ICD-10) Surgical History (Updated 03/25/23 @ 13:51 by Rajni Rios NP) H/O lithotripsy ?Z98.890 - Other specified postprocedural states (ICD-10) History of open reduction and internal fixation (ORIF) procedure (~10/2021) ?Z98.890 - Other specified postprocedural states (ICD-10) Hx of esophagogastroduodenoscopy ?Z98.890 - Other specified postprocedural states (ICD-10) H/O cardiac catheterization ?Z98.890 - Other specified postprocedural states (ICD-10) H/O arthroscopy of knee ?Z98.890 - Other specified postprocedural states (ICD-10) H/O colonoscopy ?Z98.890 - Other specified postprocedural states (ICD-10) H/O cystoscopy ?Z98.890 - Other specified postprocedural states (ICD-10) H/O transurethral resection of prostate ?Z98.890 - Other specified postprocedural states (ICD-10) ?Z90.79 - Acquired absence of other genital organ(s) (ICD-10) S/P AAA repair (~02/2022) ?Z98.890 - Other specified postprocedural states (ICD-10) ?Z86.79 - Personal history of other diseases of the circulatory system (ICD- 10) S/P cystourethroscopy with dilation of urethral stricture ?Z98.890 - Other specified postprocedural states (ICD-10) Social History Within the past year, how often did you have a drink containing alcohol: 2-3 times a week Smoking status: Former smoker Non-prescribed substance use: denies use Previous occupational history: retired Highest level of school completed/degree received: high school graduate Are you now , , , , never or living with a partner: In a typical week, how many times do you talk on the telephone with family, friends, or neighbors: twice per week How often do you get together with friends or relatives: twice per week Little interest or pleasure in doing things: not at all Feeling down, depressed, or hopeless: not at all Feel stressed/tense/nervous/anxious/difficulty sleeping: not at all Do you think of yourself as: straight/heterosexual Gender Identity: male Exam Constitutional Vital Signs, click to edit/add: Last Vital Signs Temp 98.1 F 09/22/23 20:59 Pulse 66 09/22/23 20:59 Resp 18 09/22/23 20:59 BP 185/75 H 09/22/23 20:59 Pulse Ox 98 09/22/23 20:59 O2 Del Method Room Air 09/22/23 20:59 Documenting provider has reviewed patient's vital signs: yes Common normals: no apparent distress and oriented x3 General appearance: well developed Cardio Peripheral pulses: radial pulses present left 2+ Extremity Other: Left shoulder: +tenderness to the superior aspect of the shoulder, AC joint region with associated swelling, deformity.? No tenderness to the remainder of the arm, proximal clavicle.? No swelling, ecchymosis, discoloration, crepitus, instability, warmth.? ROM somewhat limited abducting arm across chest due to pain. He is able to lift his arm, flexing it and abducting it with some pain as well.? Strength 5/5 Neuro Common normals: oriented x3, no focal motor deficits and no sensory deficits noted Psych Common normals: mental status grossly normal and thought process normal Thought process: normal thought process Course Reevaluation(s) Reevaluation #1: Discussed with patient and family results, plan, and disposition. They are agreeable. Time: 21:50 Vital Signs Vital signs: Vital Signs Temperature 98.1 F 09/22/23 20:59 Pulse Rate 66 09/22/23 20:59 Respiratory Rate 09/22/23 20:59 Blood Pressure 185/75 H 09/22/23 20:59 Pulse Oximetry 98 09/22/23 20:59 Oxygen Delivery Method Room Air 09/22/23 20:59 Temperature 98.1 F 09/22/23 20:59 Pulse Rate 66 09/22/23 20:59 Respiratory Rate 18 09/22/23 20:59 Blood Pressure 185/75 H 09/22/23 20:59 Pulse Oximetry 98 09/22/23 20:59 Oxygen Delivery Method Room Air 09/22/23 20:59 MDM - Extremity Injury (Upper) MDM Narrative Medical decision making narrative: This is a pleasant 83-year-old male who presents to the emergency department with complaint of left shoulder injury. On arrival, afebrile, vital signs are stable. Exam, nontoxic, well-appearing patient in no distress. There appears to be deformity to the left shoulder, superior, AC region with swelling, mild tenderness. Range of motion is somewhat reduced, but able to perform to a degree. Neurovascularly intact. X-ray imaging, per my reading reveals distal clavicle fracture. Patient declined any pain medications during ED course He was placed in a sling and referred to orthopedics. Favor left clavicle fracture Dislocation less likely based on imaging Disposition ? The patient was discharged. Plan: Patient will be discharged to home. Condition at time of disposition: stable ? Advised to follow up with primary provider. Advised to return for any worsening and/or development of new, concerning signs or symptoms PLEASE NOTE: Portions of the medical record may have been produced using electronic country sales manager and may contain errors with respect to translation of words which may not have been identified prior to finalization of the chart. Medical Records Attestation: I reviewed the patient's medical records. Imaging Data left shoulder: Attestation: I personally reviewed and interpreted this imaging study as follows: (Displaced left clavicle fracture distal aspect) Radiologist's impression: ITS Impressions Shoulder X-Ray 09/22/23 21:13 IMPRESSION: Acute comminuted displaced distal left clavicle fracture is seen with fracture extension to the left acromioclavicular joint. Electronically authenticated by: CUONG GRAHAM Date: 09/22/2023 22:51 Discharge Plan Discharge Stand Alone Forms: Portal Instructions Chief Complaint: Extremity Injury, Upper Clinical Impression: Acute pain of left shoulder Closed fracture of left clavicle Qualifiers: Encounter type: initial encounter Clavicle location: lateral end Fracture alignment: displaced Qualified Code(s): S42.032A - Displaced fracture of lateral end of left clavicle, initial encounter for closed fracture Patient Disposition: Home, Self-Care Time of Disposition Decision: 21:49 Condition: Good Prescriptions / Home Meds: No Action isosorbide dinitrate 30 mg tablet 30 mg PO DAILY pravastatin 40 mg tablet 40 mg PO DAILY tamsulosin 0.4 mg capsule 0.4 mg PO QPM Qty: 30 1RF carvedilol [Coreg] 25 mg tablet 25 mg PO BID losartan 100 mg tablet 50 mg PO DAILY amlodipine 2.5 mg tablet 2.5 mg PO QPM nitrofurantoin monohyd/m-cryst [Macrobid] 100 mg capsule 100 mg PO BID 1 Days Qty: 2 0RF Rx Instructions: must administer with a meal/food cholecalciferol (vitamin D3) 25 mcg (1,000 unit) capsule 1,000 unit PO BID Print Language: Citizen Of [place] Instructions: Clavicle Fracture (ED) Referrals: Shailesh Vinson DO [Primary Care Provider] - 1 week Darren Arredondo MD [Physician] - 09/23/23 Discharge Date/Time: 09/22/23 22:36 Procedures ED Ortho Splinting/Casting Orthopedic Splinting/Casting left shoulder: Additional comments: ED PROCEDURE NOTE: SPLINTING/STRAPPING The ED nurse applied a sling splint/immobilizer to the left arm of the patient. The area was examined post application and there was good alignment and good neurovascular function of the splinted/immobilized body part following the procedure. The patient tolerated the procedure well. Electronically verified by Ramana Gilmore PA-C
== END 2023-09-22 22:36 | disposition home or self-care (01) ==
PROVIDERS: Emergency Provider Internal Medicine; PCP Internal Medicine
DX: S42.032A Displaced fracture of lateral end of left clavicle, initial encounter for closed fracture (principal); M25.512 Pain in left shoulder; V86.49XA Person injured while boarding or alighting from other special all-terrain or other off-road motor vehicle, initial encounter; Z87.891 Personal history of nicotine dependence
CPT/HCPCS: 73030; 99283

== ENCOUNTER 2023-09-28 09:52 | Outpatient (OUT) | payer MEDICARE, OTHER, SELFPAY ==
--- NOTE | 2023-09-28 09:57 | US_ITS ---
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 FINDINGS: LIVER: Normal size and echotexture. Color Doppler demonstrates patent hepatic veins. PORTAL VEIN: Duplex Doppler demonstrates normal hepatopetal flow pattern with flow velocity averaging 23 cm/s. GALLBLADDER: Within fundus is a 1.9 x 1.7 x 1.6 cm mass with small amount of internal blood flow. Nonobstructing 1.1 cm stone within gallbladder neck. No abnormal wall thickening or adjacent free fluid. BILIARY: No abnormal dilation or stones. Common bile duct diameter is within normal limits. PANCREAS: No visible mass, abnormal atrophy, or duct dilation. KIDNEY: No hydronephrosis. Contains a nonobstructing 15 mm stone.. Size: 9.6 x 4.9 x 5.5 cm. US/US right upper quadrant IMPRESSION: 1. Mass within gallbladder fundus suspicious for neoplasm. Consider CT abdomen and pelvis with IV contrast for further evaluation and for evaluation of adjacent structures. 2. Cholelithiasis. 3. Right nephrolithiasis. Electronically authenticated by: BERNY TIJERINA Date: 09/29/2023 06:46
--- OUTSIDE RECORDS SUMMARY | 2023-09-28 10:11 | XMS_ITS | CCD ---
Author Organization [facility] Inform ion [facility] Care Team Providers Care Translation Director Name Role Phone Orlando Dotson Fernando Unavailable Raul Quan Unavailable Tamar Perea Unavailable Shailesh Dunham Unavailable DO Shailesh Dunham Primary Care Provider MD Raul Quan Attending Provider [phone] KB Perea Attending Provider MD Raul Quan Admit Provider DO Shailesh Dunham Primary Care Provider KB Perea Attending Provider MD Raul Quan Admit Provider [phone] MD Raul Quan Attending Provider SHAILESH DUNHAM Primary Care Physician [phone] [place] .IVELISSE Admitting Unavailable LUCaleb .IVELISSE Attending [...] Care Provider MD Raul Quan Attending Provider [phone] DO Shaliesh Dunham Primary Care Provider [phone] MD Raul Quan Attending Provider [phone] MD Raul Quan Admit Provider [phone] DO Shailesh Dunham Primary Care Provider MD Raul Quan Attending Provider Lue, Ivelisse [...] Unavailable DO Shailesh Dunham Primary Care Provider [phone] MD Raul Quan Attending Provider CLIFTON CORRAE Attending Unavailable SHAILESH DUNHAM Referring Unavailable MD [...] Christiansen Attending Unavailable YSABEL JOHN Referring Unavailable AMBER BRYANT Referring Unavailable YSABEL JOHN Referring Unavailable YSABEL JOHN Attending Unavailable AMBER BRYANT Attending Unavailable AMBER BRYANT Referring Unavailable Allergies Allergy Classification Reported Allergen(s) Allergy Type Date of Onset Reaction(s) Facility Angiotensin Converting Enzyme (SHALINI) Inhibitors (3 sources) Angiotensin Converting Enzyme (Shalini) Inhibitors; Translations: [SHALINI Inhibitors] Drug Allergy 08-27-19 24 [facility] Tetanus immune globulin (3 sources) Tetanus immune globulin; Translations: [tetanus immune globulin] Drug Allergy 08-27-19 Unknown Reaction [facility] (5 sources) Angiotensin Converting Enzyme (Shalini) Inhibitors Drug allergy Unknown [employer] [facility] [employer] Other (6 sources) Tetanus vaccine; Translations: [tetanus toxoid] Drug allergy Unknown [facility] Repository (20 sources) Angiotensin Converting Enzyme (Shalini) Inhibitors; Translations: [Angiotensin-conv erting enzyme inhibitor agent (substance)] Allergy to substance 05-09-[address] [facility] (8 sources) Contrast media Allergy to substance 10-07-19 22 [facility] (15 sources) Tetanus immune globulin; Translations: [TETANUS IMMUNE GLOBULIN] Drug Allergy 02-24-20 19 Unknown Reaction [facility] (20 sources) Angiotensin-conve rting enzyme inhibitor agent Drug allergy Unknown [employer] Other (2 sources) Tetanus toxoid specific immunoglobulin E Drug allergy Unknown [employer] Other (12 sources) Contrast media; Translations: [Contrast Dye] Allergy to substance unknown [facility] (13 sources) Iodine; Translations: [iodine] Drug Allergy 10-27-19 22 Unknown (qualifier value) [facility] (11 sources) tetanus toxoid vaccine, inactivated; Translations: [tetanus toxoid] Drug Allergy Unknown (qualifier value) [facility] (1 source) Iodine Drug Allergy [facility] Repository (1 source) Iodine (And Iodine Containting Drugs) Drug allergy (disorder) [facility] Repository (1 source) Tetanus AND Diphtheria Tox,Adult Drug allergy (disorder) [facility] Repository (20 sources) Tetanus vaccine Drug allergy Unknown [employer] Other (13 sources) Iodinated Contrast Media; Translations: [Iodinated Contrast Media] Allergy to substance 10-27-19 22 Hives [facility] (9 sources) tetanus toxoid, adsorbed; Translations: [tetanus toxoid, adsorbed] Allergy to substance 04-26-19 24 Unknown Reaction [facility] (1 source) GADOLINIUM-CONTAI MAYA CONTRAST MEDIA; Translations: [GADOLINIUM-CONTA INING CONTRAST MEDIA] Propensity to adverse reactions to drug (disorder) 05-09-19 16 [facility] Repository (1 source) TETANUS AND DIPHTHERIA TOXOIDS; Translations: [TETANUS AND DIPHTHERIA TOXOIDS] Propensity to adverse reactions to drug (disorder) 10-27-19 22 [facility] Repository (1 source) TETANUS VACCINES AND TOXOID; Translations: [TETANUS VACCINES AND TOXOID] Propensity to adverse reactions to drug (disorder) 05-16-19 16 [facility] Repository (1 source) ALLERGIES NOT ON FILE; Translations: [ALLERGIES NOT ON FILE] Propensity to adverse reactions (disorder) [facility] Repository Medications Current Medications Medication Drug [...] 2019 1:00am April 26, 2023 6:54pm Isosorbide Trade itrate Active isosorbide dinitrate 30 mg oral [...] Daily, # 30 tab(s), Refills(s) 6, Pharmacy: [facility]/pharmacy #[id number], 169, cm, 10/07/22 8:54:00 EDT, Height/Length [...] acid 7540 MG / polyethylene glycol 3350 36868 MG / potassium chloride 1200 MG / sodium ascorbate 59273 MG / sodium chloride 3200 MG Powder for Oral Solution) / 1 (polyethylene glycol 3350 248021 MG / potassium chloride 1000 MG / [...] 22, 2023 12:15pm take 1 tablet by [facility] every eight hours as needed oxyBUTYnin [...] 22, 2023 12:15pm take 1 capsule by [facility] every twenty-four hours Tamsulosin HCl 0.4 MG [...] Coronary arteriosclerosis; Translations: [Atherosclerotic heart disease of [place] coronary artery without angina pectoris] Onset: 11-14-2021 [...] 2 Episodic Other aftercare (1 source) 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; Translations: [OTH MEDICAL CSR CURRENT DRUG THERAPY] Onset: 2 Episodic Other aftercare (1 source) 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; Translations: [MEDICAL CSR CURRNT USE ANTICOAGULANTS] Onset: 2 Episodic Other aftercare (1 source) detention (current) use of aspirin; Translations: [ALF CURRENT [...] DATon 09-17-2023 ANTI C3 ASHLEY Negative Normal [facility] Comment on above: 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: 2 uni ts Performed By: #### L [id number] #### [facility] , ANTI IGG DATon 09-17-2023 ANTI IGG ASHLEY Negative Normal [facility] Comment on above: 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: 2 uni ts Performed By: #### L [id number] #### [facility] , ANTIBODY IDENTIFICATIONon ANTIBODY IDENTIFICATION NCSA Normal [facility] Comment on above: 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: 2 uni ts Performed By: #### L [id number] #### [facility] , Labon 09-17-[id number] 1940 M Formerly [facility] Provider Department [place] 09/17/2023 2243-[facility] RESOURCE DCC DRAW DCC Family History Problem Relation Age of Onset Heart disease Mother No Known Problems Father No Known Problems Sister Family Status - Relation Status Age at Mother Father Sister Alive Normal [facility] TYPE AND SCREENon 09-17-2023 AB SCREEN Positive Normal [facility] Comment on above: 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: 2 uni ts Performed By: #### L [id number] #### [facility] , ABO group Nom (Bld) A Normal [facility] Comment on above: 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: 2 uni ts Performed By: #### L [id number] #### [facility] , RH TYPE IN BLOOD Positive [facility] Comment on above: 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: 2 uni ts Performed By: #### L [id number] #### [facility] , Abstracton 09-14-[id number] 1940 M [facility]ly [facility] Provider Department Center 09/14/2023 [id number] BRYANT [facility] ONC DCC Family History Problem Relation Age of Onset Heart disease Mother No Known Problems Father No Known Problems Sister Family Status - Relation Status Age at Mother Father Sister Alive Normal [facility] Abstracton 09-13-[id number] 1940 M Date Provider Department Center 09/13/2023 [id number] DCC ONC DCC Family History Problem Relation Age of Onset Heart disease Mother No Known Problems Father No Known Problems Sister Family Status - Relation Status Age at Mother Father Sister Alive Normal [facility] echo limited [facility] echo limited [facility] Main [place] [address] [place] [address] Echocardiogram Signed Patient: Chico Baker MR#: [id number] 284 : 1940 Acct:[id number] Age/Sex: 83 / M ADM Date: 08/31/23 Loc: Room: Type: [facility] Attending Dr: Sheri Christiansen MD Ordering Provider: Sheri Christiansen MD Date of Service: 08/31/23 [facility] echo limited: I35.0 - Nonrheumatic aortic [...] mmHg Transcribed By: SCV Performed At: 08/31/23 1459 Signed By: Judah Harrington MD 08/31/23 1723 Normal [facility] FPG ECG *CARDIOLOGY ONLY*on 08-19-2023 FPG ECG *CARDIOLOGY ONLY* [facility] [place] [address] Electrocardiograph Report Signed Patient: Chico Baker MR#: [id number] 284 : 1940 Acct:[id number] Age/Sex: 83 / M ADM Date: 08/19/23 Loc: EKGCARDIO Room: Type: [facility] Attending Dr: Sheri Christiansen MD Ordering [...] rhythm Normal ECG Confirmed by Sheri Christiansen ([id number]) on 08/20/2023 12:14:54 AM Referred By: Electronically Signed By:Sheri Christiansen Transcribed By: MUS Signed By Sheri Christiansen MD 4 0014 Normal [facility] 29on 08-18-2023 29 Addended by: NICOLE MONTES on: 08/19/2023 11:25 AM Modules accepted: Orders Normal [facility] APTTon 08-18-2023 ACTIVATED PARTIAL THROMBOPLASTIN TIME IN PPP BY COAGULATION ASSAY 32.1 Seconds Normal 25.0-35.0 [facility] Comment on above: Result Comment: Clin ical significance of the APTT is questionable in the presence of heparin. Performed By: #### L [id number] ####[facility] (BEAKER)[address] [place] [address] CANCER ANTIGEN 19-9on 2023 CANCER AG 19-9 (U/ML) IN SER/PLAS <2 Normal <=35 [facility] Comment on above: Result Comment: INTE [...] or absence of malignant disease. Performed By: [employer] [address] [place] [address] Info Specialist: Mario Mckeon MD, PhD CLIA Number: [id number] Performed By: #### L [id number] #### [facility] [employer]) [address] [place] [address] CBCon 08-18-2023 Erythrocyte distribution width (RBC) [Ratio] 12.6 % Normal 11.5-15.0 [facility] Comment on above: Performed By: #### L [id number] #### [facility] (BEAKER) [address] [place] [address] ERYTHROCYTE MEAN CORPUSCULAR HEMOGLOBIN CONCENTRATION (G/DL) BY AUTOMATED 32.3 g/dL Normal 32.0-35.0 [facility] Comment on above: Performed By: #### L [id number] #### [facility] ([facility] [address] [place] [address] Hematocrit (Bld) [Volume fraction] 37.8 % Low 39.0-55.0 [facility] Comment on above: Performed By: #### L [id number] #### [facility] ([facility]) [address] [place] [address] Hemoglobin (Bld) [Mass/Vol] 12.2 g/dL Low 13.0-17.0 [facility] Comment on above: Performed By: #### L [id number] #### [facility] (BEAKER) [address] [place] [address] MCH (RBC) [Entitic mass] 30.7 pg Normal 27.0-33.0 [facility] Comment on above: Performed By: #### L [id number] #### [facility] (BEAKER) [address] [place] [address] MCV (RBC) [Entitic vol] 95.0 fL Normal 82.0-98.0 [facility] Comment on above: Performed By: #### L [id number] #### [facility] (BEAKER) [address] [place] [address] PLATELETS (10*3/UL) IN BLOOD AUTOMATED COUNT 206 10*3/uL Normal 150-400 [facility] Comment on above: Performed By: #### L [id number] #### [facility] (BEAKER) [address] [place] [address] RBC (Bld) [#/Vol] 3.98 10*6/uL Low 4.20-5.70 [facility] Comment on above: Performed By: #### L [id number] #### [facility] ([facility]) [address] [place] [address] WBC (Bld) [#/Vol] 10.15 10*3/uL Normal 4.00-10.60 [facility] Comment on above: Performed By: #### L [id number] #### [facility] ([facility]) [address] [place] [address] COMPREHENSIVE METABOLIC PANE [place] 08-18-2023 Albumin [Mass/Vol] 4.1 g/dL Normal 3.5-5.7 [facility] Comment on above: Performed By: #### L [id number] #### [facility] ([facility]) [address] [place] [address] ALP [Catalytic activity/Vol] 122 U/L High 34-104 [facility] Comment on above: Performed By: #### L [id number] #### [facility] ([facility]) [address] [place] [address] ALT [Catalytic activity/Vol] 8 U/L Normal 7-52 [facility] Comment on above: Performed By: #### L [id number] #### [facility] ([facility]) [address] [place] [address] Anion gap [Moles/Vol] 12 mmol/L Normal 7-20 [facility] Comment on above: Performed By: #### L [id number] #### [facility] ([facility]) [address] [place] [address] AST [Catalytic activity/Vol] 12 U/L Low 13-39 [facility] Comment on above: Performed By: #### L [id number] #### [facility] ([facility]) [address] [place] [address] Bilirubin [Mass/Vol] 0.5 mg/dL Normal 0.3-1.0 [facility] Comment on above: Performed By: #### L [id number] #### [facility] ([facility]) [address] [place] [address] Calcium [Mass/Vol] 8.9 mg/dL Normal 8.6-10.3 [facility] Comment on above: Performed By: #### L [id number] #### [facility] ([facility]) [address] [place] [address] Chloride [Moles/Vol] 102 mmol/L Normal 98-107 [facility] Comment on above: Performed By: #### L [id number] #### [facility] ([facility]) [address] [place] [address] CO2 [Moles/Vol] 26 mmol/L Normal 21-31 [facility] Comment on above: Performed By: #### L [id number] #### [facility] ([facility]) [address] [place] [address] Creatinine [Mass/Vol] 1.02 mg/dL Normal 0.70-1.30 [facility] Comment on above: Performed By: #### L [id number] #### [facility] ([facility]) [address] [place] [address] GLOMERULAR FILTRATION RATE ML/MIN/1.73 SQ M.PREDICTED 73.8 mL/min/1.73m*2 Normal >60.0 [facility] Comment on above: Result Comment: [facility]???s estimated glomerular filtration rate (eGFR) will [...] individuals. Performed By: #### L [id number] #### [facility] ([facility]) [address] [place] [address] Glucose [Mass/Vol] 100 mg/dL Normal 70-100 [facility] Comment on above: Performed By: #### L [id number] #### [facility] ([facility]) [address] [place] [address] Potassium [Moles/Vol] 4.7 mmol/L Normal 3.5-5.1 [facility] Comment on above: Performed By: #### L [id number] #### [facility] ([facility]) [address] [place] [address] Protein [Mass/Vol] 7.8 g/dL Normal 6.0-8.3 [facility] Comment on above: Performed By: #### L [id number] #### [facility] ([facility]) [address] [place] [address] Sodium [Moles/Vol] 135 mmol/L Low 136-145 [facility] Comment on above: Performed By: #### L [id number] #### [facility] ([facility]) [address] [place] [address] Urea nitrogen [Mass/Vol] 24 mg/dL Normal 7-25 [facility] Comment on above: Performed By: #### L [id number] #### [facility] ([facility]) [address] [place] [address] UREA NITROGEN/CREATININE (MASS RATIO) IN SER/PLAS 23.5 Normal [facility] Comment on above: Performed By: #### L [id number] #### [facility] ([facility]) [address] [place] [address] Labon 08-18-[id number] 1940 M Date Provider Department [place] 08/18/2023 224-[facility] RESOURCE [facility] Comprehensiv Family History Problem Relation Age of Onset Heart disease Mother No Known Problems Father No Known Problems Sister Family Status - Relation Status Age at Mother Father Sister Alive Normal [facility] Office Visiton 08-18-2023 Follow-up visit [id number] Clarice Baker minoo Melgoza 1940 M Date Provider Department Center 08/18/2023 [id number] BRYANT DCC ONC DCC Family History Problem Relation Age of Onset Heart disease Mother No Known Problems Father No Known Problems Sister Family Status - Relation Status Age at Mother Father Sister Alive Level of Service:63044 OR OFFICE/OUTPATIENT ESTABLISHED HIGH MDM 40 MIN Reason for Visit and Comments: Consult [484] - TRAM 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 Review MRCP that was done yesterday. Normal [facility] PROTIME-INRon 08-18-2023 INR IN PPP BY COAGULATION ASSAY 1.03 Normal 0.90-1.10 [facility] Comment on above: Result Comment: ACCC [...] CHEST 1995;108:[id number]. Performed By: #### L [id number] ####[facility] [employer])[address] [place] [address] PROTHROMBIN TIME (PT) IN PPP BY COAGULATION ASSAY 13.5 Seconds Normal 12.3-14.8 [facility] Comment on above: Performed By: #### L [id number] ####[facility] ([employer])[address] [place] [address] TYPE AND SCREENon 08-18-2023 AB SCREEN Negative Normal [facility] Comment on above: Performed By: #### L [id number] #### [facility] , ABO group Nom (Bld) A Normal [facility] Comment on above: Performed By: #### L [id number] #### [facility] , RH TYPE IN BLOOD Positive Normal [facility] Comment on above: Performed By: #### L [id number] #### [facility] , MR ABDOMEN WO CONTRAST [...] Rodriguez MD. Not Vldtd Invalid Interpretation Code [facility] Comment on above: 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: Gallb ladder mass. 08-13-2023 29 Addended by: NICOLE MONTES on: 08/16/2023 11:34 AM Modules accepted: Orders Normal [facility] 29 Addended by: YSABEL JOHN on: 08/13/2023 11:35 AM Modules accepted: Orders Normal [facility] Office Visiton 08-13-2023 Follow-up visit [id number] [address] 1940 M Date Provider Department Center 08/13/2023 465-YSABEL JOHN ONC [facility] Family History Problem Relation Age of Onset Heart disease Mother No Known Problems Father No Known Problems Sister Family Status - Relation Status Age at Mother Father Sister Alive Level of Service:[facility] 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 and Comments: 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 Patient [632] - TRAM INSPECTOR - Gallbladder mas Normal [facility] Orders Onlyon 08-04-2023 Orders Only [id number] [address] 1940 M Date Provider Department Center 08/04/2023 [id number], HISTORICAL DCC ONC DCC No family history on file Normal [facility] CT angio abdomen pelvison CT angio abdomen pelvis [facility] Main [address] [address] [address] Scan Report Signed Patient: Chico Baker MR#: [id number] 284 : 1940 Acct:[id number] Age/Sex: 83 / M ADM Date: 06/16/23 Loc: CT Room: Type: [facility] Attending Dr: Raul Quan MD [...] aortic 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 The [place] aneurysmal sac is grossly unchanged in size [...] the prior study. Impression dictated by: Woody Payna Jr., D.O.06/16/2023 1:59 PM Dictation Location: [place] [address] Transcribed By: [facility] 06/16/23 1354 Dictated By: Woody Payan Jr, DO 06/16/23 1351 Signed By: 06/16/23 1359 Normal [facility] ISTAT XRay CREon 06-16-2023 ISTAT GFR > 60.0 Normal [facility] Comment on above: Result Comment: PERF ORMED BY: [place] [address] PATHOLOGIST SILVERWARE CLEANER ZENA CASTELLON M.D. Performed By: #### I SCRE #### [address] No Panel InformationOrdered By: Raul Quan on 06-16-2023 Bedside Estimated GFR (eGFR) > 60.0 [facility] Whole blood creatinine measu rementOrdered By: Raul Quan on 06-16-2023 Creatinine [Mass/Vol] 0.9 mg/dL Normal 0.6-1.3 [facility] Comment on above: ER/ESD physician is notified/shown all ISTAT results.Critical values may be confirmed by laboratory testing ifdeemed necessary by ER attending doctor. Result Comment: ER/E SD physician is notified/shown all ISTAT results. Critical values may be confirmed by laboratory testing if deemed necessary by ER attending doctor. Performed By: #### I SCRE #### [facility] [address] Calculus Analysison 05-12-19 24 Calcium oxalate dihydrate Infrared spectroscopy (Stone) [Mass fraction] 20 % Invalid Interpretation Code [facility] Comment on above: Performed By: #### 1 [id number] ####[facility] [id number] [facility] [place] [address] Calcium oxalate monohydrate (Stone) [Mass fraction] 80 % Invalid Interpretation Code [facility] Comment on above: Performed By: #### 1 [id number] ####[facility] [id number] [place] [address] Color (Stone) Brown Invalid Interpretation Code [facility] Comment on above: Performed By: #### 1 [id number] ####[facility] [id number] [place] [address] Composition Comment Invalid Interpretation Code [facility] Comment on above: Result Comment: Perc entage (Represents the % composition) Performed By: #### 1 [id number] ####[facility] [id number] [place] [address] Disclaimer: Comment Invalid Interpretation Code [facility] Comment on above: Result Comment: This test was developed and its performance characteristics determined by [employer]. It has not been cleared or approved by the Food and Drug Administration. Performed at: [facility] [address] [id number] Emanuel Silverman Performed By: #### 1 [id number] ####[facility] [address] [place] [address] Laboratory comment Daniel (Report) Comment Invalid Interpretation Code [facility] Comment on above: Result Comment: Phys ician questions regarding Calculi Analysis [facility] at: [phone]. Performed By: #### 1 [id number] ####[facility] [address] [place] [address] Please Note: Comment Invalid Interpretation Code [facility] Comment on above: Result Comment: Calc melissa report will follow via computer, mail or chin strap sewer delivery. Performed By: #### 1 [id number] ####[facility] [address] [place] [address] Size (Stone) [Entitic vol] 2x3 Invalid Interpretation Code [facility] Comment on above: Result Comment: Mult iple pieces received. Dimensions of the largest piece reported. Performed By: #### 1 [id number] ####[facility] [address] [place] [address] Specimen source subject Nom Comment Invalid Interpretation Code [facility] Comment on above: Result Comment: Not provided Performed By: #### 1 [id number] ####[facility] [address] [place] [address] Stone Photo Comment Invalid Interpretation Code [facility] Comment on above: Result Comment: Phot ograph will follow under a separate cover Performed By: #### 1 [id number] ####[facility] [address] [place] [address] Weight (Stone) 12 mg Invalid Interpretation Code [facility] Comment on above: Performed By: #### 1 [id number] ####[facility] [address] [place] [address] Consent for Procedure/Surger yon 05-05-2023 Consent for Procedure/Surgery [id number]#1.00TIFF Normal [facility] RAD - MISCon 05-05-2023 RAD - MISC [id number]#1.00TIFF Normal [facility] Ambulatory Visit Summaryon 0 05-04-2023 [...] DO, SHAILESH This Is Your Medications List Contact prescribing physician if questions or concerns [facility] Prescription (#####) aspirin (aspirin 81 mg oral [...] LEIJA, Ivelisse Schreiber Where: [facility] Patient Educationon 05-04-19 Patient Education Nephrology Dietary [...] ? 8 oz (237 mL) of milk, fmroquo-axhaxqeulwfe-yujrk milk, and calcium-fortifiedfruit juice. Calcium-fortified means that [...] Spinach (cooked), rhubarb, beets, sweet potatoes, and Ecuadorean chard. ? Peanuts. ? Potato chips, palauan fries, and baked potatoes with skin on. ? Nuts and nut products. ? Chocolate. ? If you regularly take a diuretic medicine, make sure to eat at least 1 or 2 servings of fruits or vegetables that are high in potassium each day. These include: ? Avocado. ? Banana. ? Foster, prune, carrot, or tomato juice. ? Baked [...] fish oil, or vitamin B6. ? Take vlnh-vml-qkqfmwc and prescription medicines only as told by your health care provider. These include supplements. What foods sh (more content not included)... Normal [facility] RAD - MISCon 05-04-2023 RAD - MIS [id number]#1.00TIFF Kaushik Carmichael [facility] Urology Office/Clinic Noteon 05-04-2023 Urology Office/Clinic Note [...] w/KUB. All questions/concern (more content not included)... [facility] Comment on above: Result Comment: Elec tronically Signed By: Mo LEIJA, Ivelisse Schreiber\.br\Date and Time Signed: 05/04/23 12:02 EST\.br\Electronically Co-Signed By: Eleonora Belcher\.br\Date and Time Co-Signed: 05/04/23 11:47 EST Operative Reporton Operative Report [id number]#1.00TIFF [facility] Physician Orderon 04-29-2023 Physician Order [id number]#1.00TIFF [facility] RAD - MISCon 04-28-2023 RAD - MISC [id number]#1.00TIFF [facility] Consultation Noteon 04-23-19 Consultation Note [id number]#1.00TIFF [facility] Formson 04-23-2023 Forms [id number]#1.00TIFF [facility] Consent for Procedure/Surger yon 04-21-2023 Consent for Procedure/Surgery [id number]#1.00TIFF Normal [facility] Lab Reportson 04-21-2023 Lab Reports [id number]#1.00TIFF Normal [facility] Lab Reports [id number]#1.00TIFF Normal [facility] Activated partial thrombopla stin time (aPTT) in platelet poor plasma by coagulation aon 04-20-2023 aPTT Coag (PPP) [Time] 32.6 s 22.3-36.2 [facility] Basophils Auto (Bld) [#/Vol] on 04-20-2023 Basophils (Bld) [#/Vol] 0.1 10 3/uL 0.0-0.1 [facility] Basophils/100 WBC Auto (Bld) on 04-20-2023 Basophils/100 WBC (Bld) 0.5 % 0.2-2.0 [facility] Eosinophils/100 WBC Auto (Bl d)on 04-20-2023 Eosinophils/100 WBC (Bld) 1.2 % 0.9-7.0 [facility] Erythrocyte distribution wid th Auto (RBC) [Ratio]on 04-20-2023 Erythrocyte distribution width (RBC) [Ratio] 12.4 % 11.0-15.0 [facility] Estimated glomerular filtrat ion rate (GFR) non- Americanon 04-20-2023 GFR/1.73 sq M.predicted among non-blacks MDRD (S/P/Bld) [Vol rate/Area] mL/min/{1.73_m2} >=60 [facility] Formson 04-20-2023 Forms [id number]#1.00TIFF Normal [facility] Hematocrit Auto (Bld) [Volum e fraction]on 04-20-2023 Hematocrit (Bld) [Volume fraction] 36.7 % 42.0-54.0 [facility] Hemoglobin [Mass/volume] in Bloodon 04-20-2023 Hemoglobin (Bld) [Mass/Vol] 11.5 g/dL 14.0-18.0 [facility] INR in Platelet poor plasma by Coagulation assayon 04-20-2023 INR Coag (PPP) [Relative time] 1.01 {INR} [facility] Comment on above: DESIRED INR:2.0-3.0 CONDITIONS NOT LISTED BELOW2.5-3.5 FOR PROSTHETIC HEART VALVE REPLACEMENT2.5-3.5 RECURRENT THROMBOSIS Laboratory - Chemistry and C hemistry - challengeon 04-20-2023 Calcium [Mass/Vol] 9.0 mg/dL 8.5-10.1 [facility] Chloride [Moles/Vol] 104 mmol/L 98-107 [facility] CO2 [Moles/Vol] 28.9 mmol/L 21.0-32.0 [facility] Creatinine [Mass/Vol] 0.89 mg/dL 0.70-1.30 [facility] GFR/1.73 sq M.predicted MDRD (S/P/Bld) [Vol rate/Area] mL/min/{1.73_m2} >=60 [facility] Glucose [Mass/Vol] 133 mg/dL 74-106 [facility] Potassium [Moles/Vol] 4.6 mmol/L 3.5-5.1 [facility] Sodium [Moles/Vol] 140 mmol/L 136-145 [facility] Urea nitrogen [Mass/Vol] 15.0 mg/dL 7.0-18.0 [facility] Urea nitrogen/Creatinine [Mass ratio] 16.9 mg/mg [facility] Laboratory - Hematology and Cell countson 04-20-2023 Immature granulocytes/100 WBC (Bld) 0.3 % 0.0-0.5 [facility] Leukocytes [#/volume] correc shyann for nucleated erythrocytes in Blood by Automated counon 04-20-2023 WBC corrected for nucl RBC Auto (Bld) [#/Vol] 9.9 10 3/uL 4.0-11.0 [facility] Lymphocytes Auto (Bld) [#/Vo l]on 04-20-2023 Lymphocytes (Bld) [#/Vol] 1.1 10 3/uL 1.2-3.8 [facility] Lymphocytes/100 WBC Auto (Bl d)on 04-20-2023 Lymphocytes/100 WBC (Bld) 11.3 % 20.5-60.0 [facility] MCH Auto (RBC) [Entitic mass ]on 04-20-2023 MCH (RBC) [Entitic mass] 29.6 pg 25.9-34.0 [facility] MCHC Auto (RBC) [Mass/Vol]on 04-20-2023 MCHC (RBC) [Mass/Vol] 31.3 g/dL 29.9-35.2 [facility] MCV Auto (RBC) [Entitic vol] on 04-20-2023 MCV (RBC) [Entitic vol] 94.6 fL 80.0-94.0 [facility] Monocytes Auto (Bld) [#/Vol] on 04-20-2023 Monocytes (Bld) [#/Vol] 0.8 10 3/uL 0.3-0.8 [facility] Monocytes/100 WBC Auto (Bld) on 04-20-2023 Monocytes/100 WBC (Bld) 8.5 % 1.7-12.0 [facility] Neutrophils Auto (Bld) [#/Vo l]on 04-20-2023 Neutrophils (Bld) [#/Vol] 7.8 10 3/uL 1.4-6.5 [facility] Neutrophils/100 WBC Auto (Bl d)on 04-20-2023 Neutrophils/100 WBC (Bld) 78.2 % 43.0-75.0 [facility] No Panel Informationon 04-20 Eosinophils # (Auto) 0.1 10 3/uL 0.0-0.7 [facility] Immature Granulocyte # (Auto) 0.03 10 3/uL 0.00-0.03 [facility] Platelet mean volume Auto (B ld) [Entitic vol]on 04-20-2023 Platelet mean volume (Bld) [Entitic vol] 9.4 fL 9.5-13.5 [facility] Platelets Auto (Bld) [#/Vol] on 04-20-2023 Platelets (Bld) [#/Vol] 188 10 3/uL 150-450 [facility] Prothrombin time (PT)on 04-08 PT Coag (PPP) [Time] 10.7 s 9.0-11.6 [facility] RBC Auto (Bld) [#/Vol]on RBC (Bld) [#/Vol] 3.88 10 6/uL 4.70-6.10 [facility] Serum or plasma anion gap de terminationon 04-20-2023 Anion gap [Moles/Vol] 11.7 mmol/L [facility] RAD - MISCon 04-08-2023 [facility] [id number]#1.00TIFF Normal [facility] Operative Reporton Operative Report [id number]#1.00TIFF Normal [facility] RAD - MISCon 03-25-2023 RAD - [facility] [id number]#1.00TIFF Normal [facility] Consent for Procedure/Surger yon 03-22-2023 Consent for Procedure/Surgery [id number]#1.00TIFF Normal [facility] Lab Reportson 03-19-2023 Lab Reports [id number]#1.00TIFF Normal [facility] RAD - MISCon 03-19-2023 [facility] [id number]#1.00TIFF Normal [facility] Reminderson 03-03-2023 Reminders - From: Faviola Clemens To: EU - Dunia Lucaleb; Sent: 01/13/2023 10:01:25 EST Show up: [...] Haddad Patient is scheduled for 03/24/[address] [facility] Comment on above: Result Comment: Miss ing Attachment - attachment exceeds size limitation (02/19/2023) RAD - Ultrasound Report Can be viewed in source system Missing Attachment - attachment exceeds size limitation (02/19/2023) RAD - MISC Can be viewed in source system RAD - MISCon 02-22-2023 RAD - MISC [id number]#1.00TIFF [facility] RAD - Ultrasound Reporton RAD - Ultrasound Report [id number]#1.00TIFF [facility] Screenson 01-14-2023 Screens [id number]#1.00TIFF [facility] Screens [id number]#1.00TIFF [facility] Patient Educationon 01-14-20 Patient Education [...] Follow these instructions at home: ? Take uzwb-yew-fxobjjg and prescription medicines only as told by [...] the medicine (more content not included)... Normal [facility] Urology Office/Clinic Noteon 01-13-2023 Urology [...] with voice recognition artificial intelligence software, specifically [employer], [employer] and or [employer]. Substitutions may have occurred due to the inherent limitations of voice recognition and artificial intelligence software. 1. BPH with obstruction/lower urinary tract symptoms (N40.1: Benign prostatic hyperplasia with lower urinary tract symptoms) hx TURP by [facility] 2019, prostate small on 05/11/22 CT [...] stones no (more content not included)... Normal [facility] Comment on above: Result Comment: Elec tronically Signed By: Mo LEIJA, Ivelisse Schreiber\.br\Date and Time Signed: 01/13/23 16:25 EST\.br\Electronically Co-Signed By: Faviola Clemens\Date and Time Co-Signed: 01/13/23 09:59 EST US carotid doppler BIon 09-0 US carotid doppler BI [facility] Main [place] [address] [place] [address] Ultrasound Report Signed Patient: Chico Baker MR#: [id number] : 1940 Acct:[id number] Age/Sex: 82 / M ADM Date: 11/10/22 Loc: [facility] Room: Type: [facility] Attending Dr: Raul Quan MD [...] Raul Quan M.D.11/10/2022 10:30 AM Dictation Location: [place] [address] Tech: Harika Vazquezninoska Transcribed By: ALEX 11/10/22 1030 Dictated By: Raul Quan MD 11/10/22 1029 Signed By: 11/10/22 1030 Normal [facility] Screenson 10-08-2022 Screens [id number]#1.00CD:127 Normal [facility] Screens [id number]#1.00CD:127 Normal [facility] Ambulatory Visit Summaryon 0 10-07-2022 Ambulatory Visit Summary CHICO BAKER :1940 Visit Date:10/07/2022 Ambulatory Visit Instructions Your Diagnosis BPH with obstruction/lower urinary tract symptoms History of kidney stones Asymptomatic microscopic hematuria 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 Tests Performed Urnls Dip Stick Auto w/o Microscopy POC 89719 Your Care Team Attending Physician - Mo [...] LEIJA, Ivelisse Schreiber Where: [facility] Patient Educationon 10-08-19 Patient Education Urology Benign [...] Follow these instructions at home: ? Take vyhu-xmd-hcgrpbi and prescription medicines only as told by [...] the medicine (more content not included)... Normal [facility] Urology Office/Clinic Noteon 10-07-2022 Urology [...] lower urinary tract symptoms) hx TURP by [facility] 2019, prostate small on 05/11/22 CT [...] neg, s (more content not included)... Normal [facility] Comment on above: Result Comment: Elec tronically Signed By: Ivelisse Hassan MD\.br\Date and Time Signed: 10/07/22 10:28 EDT\.br\Electronically Co-Signed By: Eleonora Belcher.br\Date and Time Co-Signed: 10/07/22 09:25 EDT Consent for Procedure/Surger yon 07-29-2022 Consent for Procedure/Surgery [id number]#1.00CD:127 Normal [facility] Patient Educationon 07-29-19 Patient Education [...] these instructions at home: Medicines ? Take udmr-bzz-uizdrkc and prescription medicines only as told by [...] include cig (more content not included)... 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 Normal [facility] Comment on above: Result Comment: Elec tronically Signed By: Mo LEIJA, Ivelisse Schreiber\.br\Date and Time Signed: 07/28/22 10:49 EDT\.br\Electronically Co-Signed By: Clarissa Joaquin MA\.br\Date and Time Co-Signed: 07/28/22 10:28 EDT Blood activated clotting sue e by coagulation assayOrdered By: Raul Quan on 07-08-2022 ACT Coag (Bld) 335 s 90-139 [facility] Comment on above: Reference Range: 90- 139 (Non-heparinized) Laboratory - CoagulationOrde red By: Raul Quan on 07-08-2022 PT Coag (PPP) [Time] 11.7 s 9.0-12.9 [facility] Platelet poor plasma interna tional normalized ratio (INR) by coagulation assay (relatOrdered By: Raul Quan on 07-08-2022 INR Coag (PPP) [Relative time] 1.0 {INR} [facility] Comment on above: INR Therapeutic [...] 07-01-2022 ALT [Catalytic activity/Vol] 9 U/L 7-52 [facility] Albumin [Mass/volume] in Ser um or Plasma by Bromocresol green (BCG) dye binding methoOrdered By: Raul Quan on 07-01-2022 Albumin BCG dye [Mass/Vol] 3.7 g/dL 3.5-5.7 [facility] Alkaline phosphatase [Enzyma tic activity/volume] in Serum or PlasmaOrdered By: Raul Quan on 07-01-2022 ALP [Catalytic activity/Vol] 96 U/L 34-104 [facility] Aspartate aminotransferase [ Enzymatic activity/volume] in Serum or PlasmaOrdered By: Raul Quan on 07-01-2022 AST [Catalytic activity/Vol] 14 U/L 13-39 [facility] Basophils Auto (Bld) [#/Vol] Ordered By: Raul Quan on 07-01-2022 Basophils (Bld) [#/Vol] 0.1 10*3/uL 0.0-0.2 [facility] Basophils/100 WBC Auto (Bld) Ordered By: Raul Quan on 07-01-2022 Basophils/100 WBC (Bld) 0.7 % . [facility] Bilirubin.total [Mass/volume ] in Serum or PlasmaOrdered By: Raul Quan on 07-01-2022 Bilirubin [Mass/Vol] 0.5 mg/dL 0.3-1.0 [facility] Calcium [Mass/volume] in Ser um or PlasmaOrdered By: Raul Quan on 07-01-2022 Calcium [Mass/Vol] 8.5 mg/dL 8.6-10.3 [facility] Carbon dioxide, total [Moles /volume] in Serum or PlasmaOrdered By: Raul Quan on 07-01-2022 CO2 [Moles/Vol] 24.6 mmol/L 21.0-31.0 [facility] Chloride [Moles/volume] in S aisha or PlasmaOrdered By: Raul Quan on 07-01-2022 Chloride [Moles/Vol] 100 mmol/L 98-107 [facility] Creatinine [Mass/volume] in Serum or PlasmaOrdered By: Raul Quan on 07-01-2022 Creatinine [Mass/Vol] 0.87 mg/dL 0.70-1.30 [facility] Eosinophils Auto (Bld) [#/Vo l]Ordered By: Raul Quan on 07-01-2022 Eosinophils (Bld) [#/Vol] 0.1 10*3/uL 0.0-0.45 [facility] Eosinophils/100 WBC Auto (Bl d)Ordered By: Raul Quan on 07-01-2022 Eosinophils/100 WBC (Bld) 1.5 % . [facility] Erythrocyte distribution wid th Auto (RBC) [Ratio]Ordered By: Raul Quan on 07-01-2022 Erythrocyte distribution width (RBC) [Ratio] 13.0 % 12.0-14.8 [facility] Globulin Calc (S) [Mass/Vol] Ordered By: Raul Quan on 07-01-2022 Globulin (S) [Mass/Vol] 3.4 g/dL [facility] Glucose [Mass/volume] in Ser um or PlasmaOrdered By: Raul Quan on 07-01-2022 Glucose [Mass/Vol] 163 mg/dL 70-100 [facility] Comment on above: ADA recommended refe rence rangeRandom Glucose Reference Range is dependent on time and content of last meal. Glucose of more than 200 mg/dL in a nonstressed, ambulatory subject supports the diagnosis of Diabetes Mellitus. Hematocrit Auto (Bld) [Volum e fraction]Ordered By: Raul Quan on 07-01-2022 Hematocrit (Bld) [Volume fraction] 36.4 % 38.8-50.0 [facility] Hemoglobin [Mass/volume] in BloodOrdered By: Raul Quan on 07-01-2022 Hemoglobin (Bld) [Mass/Vol] 12.1 g/dL 13.0-17.0 [facility] Leukocytes [#/volume] correc shyann for nucleated erythrocytes in Blood by Automated counOrdered By: Raul Quan on 07-01-2022 WBC corrected for nucl RBC Auto (Bld) [#/Vol] 8.5 10*3/uL 4.1-10.5 [facility] Lymphocytes Auto (Bld) [#/Vo l]Ordered By: Raul Quan on 07-01-2022 Lymphocytes (Bld) [#/Vol] 1.6 10*3/uL 1.00-4.8 [facility] Lymphocytes/100 WBC Auto (Bl d)Ordered By: Raul Quan on 07-01-2022 Lymphocytes/100 WBC (Bld) 19.3 % . [facility] MCH Auto (RBC) [Entitic mass ]Ordered By: Raul Quan on 07-01-2022 MCH (RBC) [Entitic mass] 30.2 pg 27.5-35.2 [facility] MCHC Auto (RBC) [Mass/Vol]Or dered By: Raul Quan on 07-01-2022 MCHC (RBC) [Mass/Vol] 33.3 g/dL 32.5-35.6 [facility] MCV Auto (RBC) [Entitic vol] Ordered By: Raul Quan on 07-01-2022 MCV (RBC) [Entitic vol] 90.7 fL 83.5-101 [facility] Monocytes Auto (Bld) [#/Vol] Ordered By: Raul Quan on 07-01-2022 Monocytes (Bld) [#/Vol] 0.9 10*3/uL 0.0-0.8 [facility] Monocytes/100 WBC Auto (Bld) Ordered By: Raul Quan on 07-01-2022 Monocytes/100 WBC (Bld) 11.1 % . [facility] Neutrophils Auto (Bld) [#/Vo l]Ordered By: Raul Quan on 07-01-2022 Neutrophils (Bld) [#/Vol] 5.7 10*3/uL 1.8-7.7 [facility] Neutrophils/100 WBC Auto (Bl d)Ordered By: Raul Quan on 07-01-2022 Neutrophils/100 WBC (Bld) 67.4 % . [facility] No Panel InformationOrdered By: Raul Quan on 07-01-2022 Estimated GFR (CKD-EPI) > 60.0 mL/Min [facility] Creatinine Clearance (Chem N/A [facility] Nucleated erythrocytes [Pres ence] in Blood by Automated countOrdered By: Raul Quan on 07-01-2022 Nucleated RBC Auto Ql (Bld) 0.0 /100{WBC} 0-0.5 [facility] Platelet mean volume Auto (B ld) [Entitic vol]Ordered By: Raul Quan on 07-01-2022 Platelet mean volume (Bld) [Entitic vol] 7.6 fL 6.6-10.1 [facility] Platelets Auto (Bld) [#/Vol] Ordered By: Raul Quan on 07-01-2022 Platelets (Bld) [#/Vol] 198 10*3/uL 150-450 [facility] Potassium [Moles/volume] in Serum or PlasmaOrdered By: Raul Quan on 07-01-2022 Potassium [Moles/Vol] 4.4 mmol/L 3.5-5.1 [facility] Protein [Mass/volume] in Ser um or PlasmaOrdered By: Raul Quan on 07-01-2022 Protein [Mass/Vol] 7.1 g/dL 6.4-8.9 [facility] RBC Auto (Bld) [#/Vol]Ordere d By: Raul Quan on 07-01-2022 RBC (Bld) [#/Vol] 4.01 10*6/uL 3.90-5.60 [facility] Serum or plasma albumin/glob ulin mass ratioOrdered By: Raul Quan on 07-01-2022 Albumin/Globulin [Mass ratio] 1.1 {ratio} [facility] Serum or plasma anion gap de terminationOrdered By: Raul Quan on 07-01-2022 Anion gap [Moles/Vol] 13.8 mmol/L 6.0-15.0 [facility] Sodium [Moles/volume] in Ser um or PlasmaOrdered By: Raulchristiana Quan on 07-01-2022 Sodium [Moles/Vol] 134 mmol/L 136-145 [facility] Urea nitrogen [Mass/volume] in Serum or PlasmaOrdered By: Raul Quan on 07-01-2022 Urea nitrogen [Mass/Vol] 17 mg/dL 7-25 [facility] WBC Auto (Bld) [#/Vol]Ordere d By: Raul Quan on 07-01-2022 WBC (Bld) [#/Vol] 8.5 10*3/uL 4.1-10.5 [facility] Patient Educationon 06-25-19 Patient Education Urology [...] these instructions at home: Medicines ? Take jgfs-mtx-kgbcruh and prescription medicines only as told by [...] the blood stops without treatment. ? Take zvvg-vsp-ewimroh and prescription medicines only as told by your health care provider. ? Drink enough fluid to keep your urine pale yellow. This information is not intended to replace advice given to you by your health care provider. Make sure you discuss any questions you have with your health care provider. Document Revised: 10/23/2020 Document Reviewed: 10/23/2020 [employer] Patient Education ? 2022 [employer] [facility] Screenson 06-24-2022 Screens [id number]#1.00CD:127 Normal [facility] Screens [id number]#1.00CD:127 Normal [facility] Urology Office/Clinic Noteon 06-24-2022 Urology [...] Urnls Dip Stick Auto w/o Microscopy POC 70564 Urology Procedure Order 4. Penile rash (R21: Rash and other nonspecific skin eruption) Pt states rash has completely cleared up after stopping Bactrim. Denies irritation. Head of penis is not red, but is discolored. Not bothersome. D/c use of cream. Resolved Ordered: Urology Procedure Order 5. ED (erectile dysfunction) (N52.9: Male erectile dysfunction, unspecified) (more content not included)... Normal [facility] Comment on above: Result Comment: Elec tronically Signed By: Mo LEIJA, Ivelisse Schreiber\.br\Date and Time Signed: 06/24/22 10:24 EDT RAD - CT Reporton 05-14-2022 RAD - CT Report [id number]#1.00CD:127 Normal [facility] Creatinine (Bld) [Mass/Vol]O rdered By: Raul Quan on 05-11-2022 Creatinine [Mass/Vol] 0.9 mg/dL 0.6-1.3 [facility] Comment on above: ER/ESD physician is notified/shown all ISTAT results.Critical values may be confirmed by laboratory testing ifdeemed necessary by ER attending doctor. No Panel InformationOrdered By: Raul Quan on 05-11-2022 POC Estimated GFR > 60 [facility] Comment on above: GFR estimated refere nce range: According to KDOQI guidelines, <60 ml/min/1.73m2 is sufficient to diagnose a patient with chronic kidney disease. POC Estimated GFR Non- Amer > 60 [facility] URINALYSISOrdered By: Kirstie sanchez on [...] Interpretation Code Negative [facility] UA Auto SS [place].plasma/[place] .RBC (Bld) [Mass ratio] 21-30 /HPF Invalid [...] [facility] UA Auto SS Urobilinogen Qn (U) [id number] {Nikki'U}/dL Normal 0.0 - 1.0 EU/dL [facility] [...] Interpretation Code Negative [facility] UA Auto SS [place].plasma/[place] .RBC (Bld) [Mass ratio] 4-20 /HPF Normal [...] [facility] UA Auto SS Urobilinogen Qn (U) [id number] {Nikki'U}/dL Normal 0.0 - 1.0 EU/dL [facility] UA Auto SS WBC Auto Ql (U) 1+ *ABN* (02/11/22 10:38 AM) Invalid Interpretation Code Negative [facility] [place] Auto SS WBC LM.HPF (Urine sed) [#/Area] 0-5 /HPF Normal 0-5/HPF [facility] [place] Auto SS Basophils Auto (Bld) [#/Vol] Ordered By: Raul Quan on 02-05-2022 Basophils (Bld) [#/Vol] 0.1 10*3/uL 0.0-0.2 [facility] Basophils/100 WBC Auto (Bld) Ordered By: Raul Quan on 02-05-2022 Basophils/100 WBC (Bld) 0.6 % . [facility] Creatinine and Glomerular fi ltration rate.predicted panel (S/P/Bld)Ordered By: Raul Quan on 02-05-2022 Creatinine [Mass/Vol] 0.94 mg/dL 0.64-1.27 [facility] Eosinophils Auto (Bld) [#/Vo l]Ordered By: Raul Quan on 02-05-2022 Eosinophils (Bld) [#/Vol] 0.1 10*3/uL 0.0-0.45 [facility] Eosinophils/100 WBC Auto (Bl d)Ordered By: Raul Quan on 02-05-2022 Eosinophils/100 WBC (Bld) 0.7 % . [facility] Erythrocyte distribution wid th Auto (RBC) [Ratio]Ordered By: Raul Quan on 02-05-2022 Erythrocyte distribution width (RBC) [Ratio] 13.8 % 12.0-14.8 [facility] Estimated glomerular filtrat ion rate (GFR) non- AmericanOrdered By: Raul Quan on 02-05-2022 GFR/1.73 sq M.predicted among non-blacks MDRD (S/P/Bld) [Vol rate/Area] > 60 mL/Min [facility] Hematocrit Auto (Bld) [Volum e fraction]Ordered By: Raul Quan on 02-05-2022 Hematocrit (Bld) [Volume fraction] 34.6 % 38.8-50.0 [facility] Hemoglobin [Mass/volume] in BloodOrdered By: Raul Quan on 02-05-2022 Hemoglobin (Bld) [Mass/Vol] 11.4 g/dL 13.0-17.0 [facility] Leukocytes [#/volume] correc shyann for nucleated erythrocytes in Blood by Automated counOrdered By: Raul Quan on 02-05-2022 WBC corrected for nucl RBC Auto (Bld) [#/Vol] 10.3 10*3/uL 4.1-10.5 [facility] Lymphocytes Auto (Bld) [#/Vo l]Ordered By: Raul Quan on 02-05-2022 Lymphocytes (Bld) [#/Vol] 1.5 10*3/uL 1.00-4.8 [facility] Lymphocytes/100 WBC Auto (Bl d)Ordered By: Raul Quan on 02-05-2022 Lymphocytes/100 WBC (Bld) 14.4 % . [facility] MCH Auto (RBC) [Entitic mass ]Ordered By: Raul Quan on 02-05-2022 MCH (RBC) [Entitic mass] 30.1 pg 27.5-35.2 [facility] MCHC Auto (RBC) [Mass/Vol]Or dered By: Raul Quan on 02-05-2022 MCHC (RBC) [Mass/Vol] 32.9 g/dL 32.5-35.6 [facility] MCV Auto (RBC) [Entitic vol] Ordered By: Raul Quan on 02-05-2022 MCV (RBC) [Entitic vol] 91.6 fL 83.5-101 [facility] Monocytes Auto (Bld) [#/Vol] Ordered By: Raul Quan on 02-05-2022 Monocytes (Bld) [#/Vol] 1.5 10*3/uL 0.0-0.8 [facility] Monocytes/100 WBC Auto (Bld) Ordered By: Raul Quan on 02-05-2022 Monocytes/100 WBC (Bld) 14.8 % . [facility] Neutrophils Auto (Bld) [#/Vo l]Ordered By: Raul Quan on 02-05-2022 Neutrophils (Bld) [#/Vol] 7.1 10*3/uL 1.8-7.7 [facility] Neutrophils/100 WBC Auto (Bl d)Ordered By: Raul Quan on 02-05-2022 Neutrophils/100 WBC (Bld) 69.5 % . [facility] No Panel InformationOrdered By: Raul Quan on 02-05-2022 Estimated GFR () > 60 mL/Min [facility] Comment on above: GFR estimated refere nce range: According to KDOQI guidelines, <60 ml/min/1.73m2 is sufficient to diagnose a patient with chronic kidney disease. Pharmacy Creatinine Clearance (Chem 57.50 [facility] Nucleated erythrocytes [Pres ence] in Blood by Automated countOrdered By: Raul Quan on 02-05-2022 Nucleated RBC Auto Ql (Bld) 0.1 /100{WBC} 0-0.5 [facility] Platelet mean volume Auto (B ld) [Entitic vol]Ordered By: Raul Quan on 02-05-2022 Platelet mean volume (Bld) [Entitic vol] 7.9 fL 6.6-10.1 [facility] Platelets Auto (Bld) [#/Vol] Ordered By: Raul Quan on 02-05-2022 Platelets (Bld) [#/Vol] 142 10*3/uL 150-450 [facility] Comment on above: Delta: 198 on 08 RBC Auto (Bld) [#/Vol]Ordere d By: Raul Quan on 02-05-2022 RBC (Bld) [#/Vol] 3.77 10*6/uL 3.90-5.60 [facility] Serum or plasma anion gap de terminationOrdered By: Raul Quan on 02-05-2022 Anion gap [Moles/Vol] 10.4 mmol/L 6.0-15.0 [facility] Serum or plasma calcium richy urement (mass/volume)Ordered By: Raul Quan on 02-05-2022 Calcium [Mass/Vol] 8.4 mg/dL 8.2-10.2 [facility] Serum or plasma chloride young surement (moles/volume)Ordered By: Raul Quan on 02-05-2022 Chloride [Moles/Vol] 101 mmol/L 95-114 [facility] Serum or plasma glucose richy urement (mass/volume)Ordered By: Raul Quan on 02-05-2022 Glucose [Mass/Vol] 109 mg/dL 70-100 [facility] Comment on above: ADA recommended refe rence rangeRandom Glucose Reference Range is dependent on time and content of last meal. Glucose of more than 200 mg/dL in a nonstressed, ambulatory subject supports the diagnosis of Diabetes Mellitus. Serum or plasma potassium me asurement (moles/volume)Ordered By: Raul Quan on 02-05-2022 Potassium [Moles/Vol] 4.6 mmol/L 3.5-5.1 [facility] Serum or plasma sodium measu rement (moles/volume)Ordered By: Raul Quan on 02-05-2022 Sodium [Moles/Vol] 135 mmol/L 136-146 [facility] Serum or plasma total carbon dioxide measurement (moles/volume)Ordered By: Raul Quan on 02-05-2022 CO2 [Moles/Vol] 28.2 mmol/L 22.0-30.0 [facility] Serum or plasma urea nitroge n measurement (mass/volume)Ordered By: Raul Quan on 02-05-2022 Urea nitrogen [Mass/Vol] 11 mg/dL 9-23 [facility] WBC Auto (Bld) [#/Vol]Ordere d By: Raul Quan on 02-05-2022 WBC (Bld) [#/Vol] 10.3 10*3/uL 4.1-10.5 [facility] Covid-19 PCR (CVDTBH)on 01-07 SARS-CoV-2 (COVID-19) RNA JESSIE+probe Ql (Unsp spec) Not detected Normal NOT DETECTED [facility] Comment on above: Result Comment: This test is not yet approved or cleared by the [place] FDA. When there are no FDA-approved or cleared tests available, and other criteria are met, FDA can make tests available under an emergency access mechanism called an Emergency Use Authorization (EUA). The EUA for this test is supported by the [employer] of Health and Human Service's (HHS's) declaration [...] SARS-CoV-2. Performed By: #### C VDTB #### [facility] [address] [place] [address] Dr. Jodi Oglesby CBC AUTO DIFFon 12-08-2021 BASO # 0.1 103/ul Normal 0.0-0.1 [facility] Comment on above: Performed By: #### D ATA1C #### [facility] [address] [place] [address] Dr. Jodi Oglesby Basophils/100 WBC (Bld) 0.5 % Normal 0.2-2.0 [facility] Comment on above: Performed By: #### D ATA1C #### [facility] [address] [place] [address] Dr. Jodi Oglesby EO # 0.1 103/ul Normal 0.0-0.7 [facility] Comment on above: Performed By: #### D ATA1C #### [facility] [address] [place] [address] Dr. Jodi Oglesby Eosinophils/100 WBC (Bld) 1.4 % Normal 0.9-7.0 [facility] Comment on above: Performed By: #### D ATA1C #### [facility] [address] [place] [address] Dr. Jodi Oglesby Erythrocyte distribution width (RBC) [Ratio] 13.0 % Normal 11.0-15.0 [facility] Comment on above: Performed By: #### D ATA1C #### [facility] [address] [address] [address] Jodi Oglesby Hematocrit (Bld) [Volume fraction] 36.1 % Critically low 42.0-54.0 [facility] Comment on above: Performed By: #### D ATA1C #### [facility] [address] [place] [address] Dr. Jodi Oglesby Hemoglobin (Bld) [Mass/Vol] 11.2 g/dL Critically low 14.0-18.0 [facility] Comment on above: Performed By: #### D ATA1C #### [facility] [address] [place] [address] Dr. Jodi Oglesby IG # 0.04 10e3/ul Critically high 0.00-0.03 [facility] Comment on above: Performed By: #### D ATA1C #### [facility] [address] [place] [address] Dr. Jodi Oglesby IG % 0.4 % Normal 0.0-0.5 [facility] Comment on above: Performed By: #### D ATA1C #### [facility] [address] [place] [address] Dr. Jodi Oglesby LYMPH # 1.8 103/ul Normal 1.2-3.8 [facility] Comment on above: Performed By: #### D ATA1C #### [facility] [address] [place] [address] Dr. Jodi Oglesby Lymphocytes/100 WBC (Bld) 17.2 % Critically low 20.5-60.0 [facility] Comment on above: Performed By: #### D ATA1C #### [facility] [address] [address] [address] Jodi Oglesby MANUAL DIFF REQ NO Normal [facility] Comment on above: Performed By: #### D ATA1C #### [facility] [address] [place] [address] Dr. Jodi Oglesby MCH (RBC) [Entitic mass] 30.4 pg Normal 25.9-34.0 [facility] Comment on above: Performed By: #### D ATA1C #### [facility] [address] [address] [address] Jodi Oglesby MCHC (RBC) [Mass/Vol] 31.0 g/dL Normal 29.9-35.2 [facility] Comment on above: Performed By: #### D ATA1C #### [facility] [address] [address] [address] Jodi Oglesby MCV (RBC) [Entitic vol] 98.1 fL Critically high 80.0-94.0 [facility] Comment on above: Performed By: #### D ATA1C #### [facility] [address] [address] [address] Jodi Oglesby MONO # 1.0 103/ul Critically high 0.3-0.8 [facility] Comment on above: Performed By: #### D ATA1C #### [facility] [address] [place] [address] Dr. Jodi Oglesby Monocytes/100 WBC (Bld) 9.8 % Normal 1.7-12.0 [facility] Comment on above: Performed By: #### D ATA1C #### [facility] [address] [address] [address] Jodi Oglesby NEUT # 7.3 103/ul Critically high 1.4-6.5 [facility] Comment on above: Performed By: #### D ATA1C #### [facility] [address] [address] [address] Jodi Oglesby Neutrophils/100 WBC (Bld) 70.7 % Normal 43.0-75.0 [facility] Comment on above: Performed By: #### D ATA1C #### [facility] [address] [address] [address] Jodi Oglesby Platelet mean volume (Bld) [Entitic vol] 9.1 fL Critically low 9.5-13.5 [facility] Comment on above: Performed By: #### D ATA1C #### [facility] [address] [address] [address] Jodi Oglesby PLT 214 103/ul Normal 150-450 [facility] Comment on above: Performed By: #### D ATA1C #### [facility] [address] [address] [address] Jodi Oglesby RBC 3.68 106/ul Critically low 4.70-6.10 [facility] Comment on above: Performed By: #### D ATA1C #### [facility] [address] [place] [address] Dr. Jodi Oglesby WBC 10.3 103/ul Normal 4.0-11.0 [facility] Comment on above: Performed By: #### D ATA1C #### [facility] [address] [place] [address] Dr. Jodi Oglesby PROF CHEM 8 (BAS METB)on Anion gap [Moles/Vol] 9.7 mmol/L Normal [facility] Comment on above: Performed By: #### C BC #### [facility] [address] [place] [address] Dr. Jodi Oglesby Calcium [Mass/Vol] 8.9 mg/dL Normal 8.5-10.1 [facility] Comment on above: Performed By: #### C BC #### [facility] [address] [place] [address] Dr. Jodi Oglseby Chloride [Moles/Vol] 102 mmol/L Normal 98-107 [facility] Comment on above: Performed By: #### C BC #### [facility] [address] [place] [address] Dr. Jodi Oglesby CO2 [Moles/Vol] 31.0 mmol/L Normal 21.0-32.0 [facility] Comment on above: Performed By: #### C BC #### [facility] [address] [place] [address] Dr. Jodi Oglesby Creatinine [Mass/Vol] 0.85 mg/dL Normal 0.70-1.30 [facility] Comment on above: Performed By: #### C BC #### [facility] [address] [place] [address] Dr. Jodi Oglesby EGFR-AF SLOVENIAN >60 Normal >=60 [facility] Comment on above: Performed By: #### C BC #### [facility] [address] [address] [address] Jodi Oglesby EGFR-NON AF [place]OV[place]IAN >60 Normal >=60 [facility] Comment on above: Performed By: #### C BC #### [facility] [address] [address] [address] Jodi Oglesby Glucose [Mass/Vol] 106 mg/dL Normal 74-106 [facility] Comment on above: Performed By: #### C BC #### [facility] [address] [address] [address] Jodi Oglesby Potassium [Moles/Vol] 4.7 mmol/L Normal 3.5-5.1 [facility] Comment on above: Performed By: #### C BC #### [facility] [address] [place] [address] Dr. Jodi Oglesby Sodium [Moles/Vol] 138 mmol/L Normal 136-145 [facility] Comment on above: Performed By: #### C BC #### [facility] [address] [address] [address] Jodi Oglesby Urea nitrogen [Mass/Vol] 14.0 mg/dL Normal 7.0-18.0 [facility] Comment on above: Performed By: #### C BC #### [facility] [address] [place] [address] Dr. Jodi Oglesby Urea nitrogen/Creatinine [Mass ratio] 16.5 mg/mg Normal [facility] Comment on above: Performed By: #### C BC #### [facility] [address] [place] [address] Dr. Jodi Oglesby XR CHEST 2 Von [...] ROCIO RICARDO Date: 2021-12-08 16:20 Normal [facility] Covid-19 PCR (CVDTB)on 11-07 SARS-CoV-2 (COVID-19) RNA JESSIE+probe Ql (Unsp spec) Not detected Normal NOT DETECTED [facility] Comment on above: Result Comment: This test is not yet approved or cleared by the [place] FDA. When there are no FDA-approved or cleared tests available, and other criteria are met, FDA can make tests available under an emergency access mechanism called an Emergency Use Authorization (EUA). The EUA for this test is supported by the [place] of Health and Human Service's (HHS's) declaration [...] SARS-CoV-2. Performed By: #### C VDTBH #### [facility] [address] [place] [address] Dr. Jodi Oglesby CBC AUTO DIFFon 11-11-2021 BASO # 0.1 103/ul Normal 0.0-0.1 [facility] Comment on above: Performed By: #### C BC #### [facility] [address] [place] [address] Dr. Jodi Oglesby Basophils/100 WBC (Bld) 0.5 % Normal 0.2-2.0 [facility] Comment on above: Performed By: #### C BC #### [facility] [address] [place] [address] Dr. Jodi Oglesby EO # 0.2 103/ul Normal 0.0-0.7 [facility] Comment on above: Performed By: #### C BC #### [facility] [address] [place] [address] Dr. Jodi Oglesby Eosinophils/100 WBC (Bld) 1.9 % Normal 0.9-7.0 [facility] Comment on above: Performed By: #### C BC #### [facility] [address] [place] [address] Dr. Jodi Oglesby Erythrocyte distribution width (RBC) [Ratio] 13.6 % Normal 11.0-15.0 [facility] Comment on above: Performed By: #### C BC #### [facility] [address] [place] [address] Dr. Jodi Oglesby Hematocrit (Bld) [Volume fraction] 28.6 % Critically low 42.0-54.0 [facility] Comment on above: Performed By: #### C BC #### [facility] [address] [place] [address] Dr. Jodi Oglesby Hemoglobin (Bld) [Mass/Vol] 9.4 g/dL Critically low 14.0-18.0 [facility] Comment on above: Performed By: #### C BC #### [facility] [address] [place] [address] Dr. Jodi Oglesby IG # 0.08 10e3/ul Critically high 0.00-0.03 [facility] Comment on above: Performed By: #### C BC #### [facility] [address] [place] [address] Dr. Jodi Oglesby IG % 0.8 % Critically high 0.0-0.5 [facility] Comment on above: Performed By: #### C BC #### [facility] [address] [place] [address] Dr. Jodi Oglesby LYMPH # 1.3 103/ul Normal 1.2-3.8 [facility] Comment on above: Performed By: #### C BC #### [facility] [address] [place] [address] Dr. Jodi Oglesby Lymphocytes/100 WBC (Bld) 13.0 % Critically low 20.5-60.0 [facility] Comment on above: Performed By: #### C BC #### [facility] [address] [place] [address] Dr. Jodi Oglesby MANUAL DIFF REQ NO Normal [facility] Comment on above: Performed By: #### C BC #### [facility] [address] [place] [address] Dr. Jodi Oglesby MCH (RBC) [Entitic mass] 31.5 pg Normal 25.9-34.0 [facility] Comment on above: Performed By: #### C BC #### [facility] [address] [place] [address] Dr. Jodi Oglesby MCHC (RBC) [Mass/Vol] 32.9 g/dL Normal 29.9-35.2 [facility] Comment on above: Performed By: #### C BC #### [facility] [address] [place] [address] Dr. Jodi Oglesby MCV (RBC) [Entitic vol] 96.0 fL Critically high 80.0-94.0 [facility] Comment on above: Performed By: #### C BC #### [facility] [address] [place] [address] Dr. Jodi Oglesby MONO # 1.1 103/ul Critically high 0.3-0.8 [facility] Comment on above: Performed By: #### C BC #### [facility] [address] [place] [address] Dr. Jodi Oglesby Monocytes/100 WBC (Bld) 10.7 % Normal 1.7-12.0 [facility] Comment on above: Performed By: #### C BC #### [facility] [address] [place] [address] Dr. Jodi Oglesby NEUT # 7.4 103/ul Critically high 1.4-6.5 [facility] Comment on above: Performed By: #### C BC #### [facility] [address] [place] [address] Dr. Jodi Oglesby Neutrophils/100 WBC (Bld) 73.1 % Normal 43.0-75.0 [facility] Comment on above: Performed By: #### C BC #### [facility] [address] [place] [address] Dr. Jodi Oglesby Platelet mean volume (Bld) [Entitic vol] 9.3 fL Critically low 9.5-13.5 [facility] Comment on above: Performed By: #### C BC #### [facility] [address] [place] [address] Dr. Jodi Oglesby PLT 288 103/ul Normal 150-450 [facility] Comment on above: Performed By: #### C BC #### [facility] [address] [place] [address] Dr. Jodi Oglesby RBC 2.98 106/ul Critically low 4.70-6.10 [facility] Comment on above: Performed By: #### C BC #### [facility] [address] [place] [address] Dr. Jodi Oglesby WBC 10.1 103/ul Normal 4.0-11.0 [facility] Comment on above: Performed By: #### C BC #### [facility] [address] [place] [address] ABD/PELVIS WO CONon [...] TAYO CASTILLO Date: 2021-11-11 03:10 Normal [facility] Covid-19 PCR ([facility])on SARS-CoV-2 (COVID-19) RNA JESSIE+probe Ql (Unsp spec) Not detected Normal NOT DETECTED [facility] Comment on above: Result Comment: When [...] for this test is supported by the [place] of Health and Human Service's declaration that [...] used). Performed By: #### C BC #### [facility] [address] [place] [address] Dr. Jodi Oglesby OCC BLD IMMUNO SCREENon OCCULT BLOOD Negative Normal NEGATIVE [facility] Comment on above: Performed By: #### D ATA1C #### [facility] [address] [place] [address] Dr. Jodi Oglesby PROF 14(COMP METB)on 022 Albumin [Mass/Vol] 3.0 g/dL Critically low 3.4-5.0 [facility] Comment on above: Performed By: #### C MP #### [facility] [address] [place] [address] Dr. Jodi Oglesby Albumin/Globulin [Mass ratio] 0.8 {ratio} Normal [facility] Comment on above: Performed By: #### C MP #### [facility] [address] [place] [address] Dr. Jodi Oglesby ALP [Catalytic activity/Vol] 126 U/L Critically high 46-116 [facility] Comment on above: Performed By: #### C MP #### [facility] [address] [place] [address] Dr. Jodi Oglesby ALT [Catalytic activity/Vol] 22 U/L Normal 16-63 [facility] Comment on above: Performed By: #### C MP #### [facility] [address] [place] [address] Dr. Jodi Oglesby Anion gap [Moles/Vol] 16.7 mmol/L Normal Th e [facility] Comment on above: Performed By: #### C MP #### [facility] [address] [place] [address] Dr. Jodi Oglesby AST [Catalytic activity/Vol] 23 U/L Normal 15-37 [facility] Comment on above: Performed By: #### C MP #### [facility] [address] [place] [address] Dr. Jodi Oglesby Bilirubin [Mass/Vol] 0.6 mg/dL Normal 0.2-1.0 [facility] Comment on above: Performed By: #### C MP #### [facility] [address] [place] [address] Dr. Jodi Oglesby Calcium [Mass/Vol] 8.5 mg/dL Normal 8.5-10.1 [facility] Comment on above: Performed By: #### C MP #### [facility] [address] [place] [address] Dr. Jodi Oglesby Chloride [Moles/Vol] 99 mmol/L Normal 98-107 [facility] Comment on above: Performed By: #### C MP #### [facility] [facility] [address] [place] [address] Dr. Jodi Oglesby CO2 [Moles/Vol] 27.4 mmol/L Normal 21.0-32.0 [facility] Comment on above: Performed By: #### C MP #### [facility] [address] [place] [address] Dr. Jodi Oglesby Creatinine [Mass/Vol] 0.80 mg/dL Normal 0.70-1.30 [facility] Comment on above: Performed By: #### C MP #### [facility] [address] [place] [address] Dr. Jodi Oglesby EGFR-AF SLOVENIAN >60 Normal >=60 [facility] Comment on above: Performed By: #### C MP #### [facility] [address] [place] [address] Dr. Jodi Oglesby EGFR-NON AF SLOVENIAN >60 Normal >=60 [facility] Comment on above: Performed By: #### C MP #### [facility] [address] [address] [address] Jodi Oglesby Globulin (S) [Mass/Vol] 3.9 g/dL Normal [facility] Comment on above: Performed By: #### C MP #### [facility] [address] [address] [address] Jodi Oglesby Glucose [Mass/Vol] 116 mg/dL Critically high 74-106 T [facility] Comment on above: Performed By: #### C MP #### [facility] [address] [address] [address] Jodi Oglesby Potassium [Moles/Vol] 4.1 mmol/L Normal 3.5-5.1 [facility] Comment on above: Performed By: #### C MP #### [facility] [address] [address] [address] Jodi Oglesby Protein [Mass/Vol] 6.9 g/dL Normal 6.4-8.2 [facility] Comment on above: Performed By: #### C MP #### [facility] [address] [address] [address] Jodi Oglesby Sodium [Moles/Vol] 129 mmol/L Critically low 136-145 Th [facility] Comment on above: Performed By: #### C MP #### [facility] [address] [address] [address] Jodi Oglesby Urea nitrogen [Mass/Vol] 15.0 mg/dL Normal 7.0-18.0 [facility] Comment on above: Performed By: #### C MP #### [facility] [address] [address] [address] Jodi Oglesby Urea nitrogen/Creatinine [Mass ratio] 18.8 mg/mg Normal [facility] Comment on above: Performed By: #### C MP #### [facility] [address] [address] [address] Jodi Oglesby PROTIMEon 11-11-2021 INR Coag (PPP) [Relative time] 1.01 {INR} Normal [facility] Comment on above: Performed By: #### P TT, PT #### [facility] [address] [place] [address] Dr. Jodi Oglesby INR GUIDELINES SEE BELOW Normal [facility] Comment on above: Result Comment: ESHA RED INR: 2.0 - 3.0 CONDITIONS NOT LISTED BELOW 2.5 - 3.5 FOR PROSTHETIC HEART VALVE REPLACEMENT 2.5 - 3.5 RECURRENT THROMBOSIS Performed By: #### P TT, PT #### [facility] [address] [place] [address] Dr. Jodi Oglesby PT Coag (PPP) [Time] 10.9 s Normal 9.0-11.6 [facility] Comment on above: Performed By: #### P TT, PT #### [facility] [address] [place] [address] Dr. Jodi Oglesby PTTon 11-11-2021 aPTT Coag (Bld) [Time] 25.4 s Normal 22.3-36.2 [facility] Comment on above: Performed By: #### P TT, PT #### [facility] [address] [place] [address] Dr. Jodi Oglesby CBC AUTO DIFFon 10-26-2021 BASO # 0.0 103/ul Normal 0.0-0.1 [facility] Comment on above: Performed By: #### D ATA1C #### [facility] [address] [place] [address] Dr. Jodi Oglesby Basophils/100 WBC (Bld) 0.3 % Normal 0.2-2.0 [facility] Comment on above: Performed By: #### D ATA1C #### [facility] [address] [place] [address] Dr. Jodi Oglesby EO # 0.1 103/ul Normal 0.0-0.7 [facility] Comment on above: Performed By: #### D ATA1C #### [facility] [address] [place] [address] Dr. Jodi Oglesby Eosinophils/100 WBC (Bld) 0.5 % Critically low 0.9-7.0 [facility] Comment on above: Performed By: #### D ATA1C #### [facility] [address] [place] [address] Dr. Jodi Oglesby Erythrocyte distribution width (RBC) [Ratio] 12.4 % Normal 11.0-15.0 [facility] Comment on above: Performed By: #### D ATA1C #### [facility] [address] [place] [address] Dr. Jodi Oglesby Hematocrit (Bld) [Volume fraction] 39.5 % Critically low 42.0-54.0 [facility] Comment on above: Performed By: #### D ATA1C #### [facility] [address] [place] [address] Dr. Jodi Oglesby Hemoglobin (Bld) [Mass/Vol] 12.8 g/dL Critically low 14.0-18.0 [facility] Comment on above: Performed By: #### D ATA1C #### [facility] [address] [place] [address] Dr. Jodi Oglesby IG # 0.07 10e3/ul Critically high 0.00-0.03 [facility] Comment on above: Performed By: #### D ATA1C #### [facility] [address] [place] [address] Dr. Jodi Oglesby IG % 0.5 % Normal 0.0-0.5 [facility] Comment on above: Performed By: #### D ATA1C #### [facility] [address] [place] [address] Dr. Jodi Oglesby LYMPH # 0.9 103/ul Critically low 1.2-3.8 [facility] Comment on above: Performed By: #### D ATA1C #### [facility] [address] [place] [address] Dr. Jodi Oglesby Lymphocytes/100 WBC (Bld) 6.3 % Critically low 20.5-60.0 [facility] Comment on above: Performed By: #### D ATA1C #### [facility] [address] [place] [address] Dr. Jodi Oglesby MANUAL DIFF REQ NO Normal [facility] Comment on above: Performed By: #### D ATA1C #### [facility] [address] [address] [address] Jodi Oglesby MCH (RBC) [Entitic mass] 30.8 pg Normal 25.9-34.0 [facility] Comment on above: Performed By: #### D ATA1C #### [facility] [address] [address] [address] Jodi Oglesby MCHC (RBC) [Mass/Vol] 32.4 g/dL Normal 29.9-35.2 [facility] Comment on above: Performed By: #### D ATA1C #### [facility] [address] [address] [address] Jodi Oglesby MCV (RBC) [Entitic vol] 95.2 fL Critically high 80.0-94.0 [facility] Comment on above: Performed By: #### D ATA1C #### [facility] [address] [place] [address] Dr. Jodi Oglesby MONO # 0.9 103/ul Critically high 0.3-0.8 [facility] Comment on above: Performed By: #### D ATA1C #### [facility] [address] [address] [address] Jodi Oglesby Monocytes/100 WBC (Bld) 6.2 % Normal 1.7-12.0 [facility] Comment on above: Performed By: #### D ATA1C #### [facility] [address] [address] [address] Jodi Oglesby NEUT # 12.8 103/ul Critically high 1.4-6.5 [facility] Comment on above: Performed By: #### D ATA1C #### [facility] [address] [address] [address] Jodi Oglesby Neutrophils/100 WBC (Bld) 86.2 % Critically high 43.0-75.0 [facility] Comment on above: Performed By: #### D ATA1C #### [facility] [address] [address] [address] Jodi Oglesby Platelet mean volume (Bld) [Entitic vol] 9.4 fL Critically low 9.5-13.5 [facility] Comment on above: Performed By: #### D ATA1C #### [facility] [address] [place], [place] [address] Dr. Jodi Oglesby PLT 169 103/ul Normal 150-450 [facility] Comment on above: Performed By: #### D ATA1C #### [facility] [address] [place], [place] [address] Dr. Jodi Oglesby RBC 4.15 106/ul Critically low 4.70-6.10 [facility] Comment on above: Performed By: #### D ATA1C #### [facility] [address] [place], [place] [address] Dr. Jodi Oglesby WBC 14.8 103/ul Critically high 4.0-11.0 [facility] Comment on above: Performed By: #### D ATA1C #### [facility] [address] [place], [place] [address] CHEST WO CONon [...] NICOLE SIMMS Date: 2021-10-26 17:38 Normal [facility] Covid-19 PCR (CVDTB)on 10-07 SARS-CoV-2 (COVID-19) RNA JESSIE+probe Ql (Unsp spec) Not detected Normal NOT DETECTED [facility] Comment on above: Result Comment: When [...] for this test is supported by the [employer] Worker of Health and Human Service's declaration that [...] used). Performed By: #### D ATA1C #### [facility] [address] [place] [address] Dr. Jodi Oglesby PROF CHEM 8 (BAS METB)on Anion gap [Moles/Vol] 11.7 mmol/L Normal [facility] Comment on above: Performed By: #### C BC #### [facility] [address] [place] [address] Dr. Jodi Oglesby Calcium [Mass/Vol] 9.2 mg/dL Normal 8.5-10.1 [facility] Comment on above: Performed By: #### C BC #### [facility] [address] [place] [address] Dr. Jodi Oglesby Chloride [Moles/Vol] 101 mmol/L Normal 98-107 [facility] Comment on above: Performed By: #### C BC #### [facility] [address] [address] [address] Jodi Oglesby CO2 [Moles/Vol] 27.6 mmol/L Normal 21.0-32.0 [facility] Comment on above: Performed By: #### C BC #### [facility] [address] [address] [address] Jodi Olgesby Creatinine [Mass/Vol] 0.98 mg/dL Normal 0.70-1.30 [facility] Comment on above: Performed By: #### C BC #### [facility] [address] [address] [address] Jodi Oglesby EGFR-AF SLOVENIAN >60 Normal >=60 [facility] Comment on above: Performed By: #### C BC #### [facility] [address] [place] [address] Dr. Jodi Oglesby EGFR-NON AF SLOVENIAN >60 Normal >=60 [facility] Comment on above: Performed By: #### C BC #### [facility] [address] [place] [address] Dr. Jodi Oglesby Glucose [Mass/Vol] 119 mg/dL Critically high 74-106 T [facility] Comment on above: Performed By: #### C BC #### [facility] [address] [place] [address] Dr. Jodi Oglesby Potassium [Moles/Vol] 4.3 mmol/L Normal 3.5-5.1 [facility] Comment on above: Performed By: #### C BC #### [facility] [address] [place] [address] Dr. Jodi Oglesby Sodium [Moles/Vol] 136 mmol/L Normal 136-145 [facility] Comment on above: Performed By: #### C BC #### [facility] [address] [place] [address] Dr. Jodi Oglesby Urea nitrogen [Mass/Vol] 15.0 mg/dL Normal 7.0-18.0 [facility] Comment on above: Performed By: #### C BC #### [facility] [address] [address] [address] Jodi Oglesby Urea nitrogen/Creatinine [Mass ratio] 15.3 mg/mg Normal [facility] Comment on above: Performed By: #### C #### [facility] [address] [address] [address] Jodi Oglesby XR CLAVICLE RTon 10-26-2021 [...] by: JANE ALDANA Date: 2021-10-26 15:37 Normal [facility] XR ELBOW RT MIN 3 VIEWSon XR [...] DEL CHAKRABORTY Date: 2021-10-26 17:23 Normal [facility] XR HIP RT 2 3V W [...] by: CHARLES ALEJANDRA Date: 2021-10-26 15:40 Normal [facility] CARDIAC STRESS/REST INJE CTIONon 10-21-2021 [facility] CARDIAC STRESS/REST INJECTION Patient Name: CHICO BAKER STUDY: MYOCARDIAL PERFUSION STRESS TEST WITH LEXISCAN Performing facility: [facility], [address] [place] [address], [address], [place] [address] [facility] Provider: Adilene Harrington MD, [facility] PCP: Dr. Jori Dunham Supervising provider: Adilene Harrington MD, [facility] INDICATION: AAA Pre-operative risk assessment for AAA scheduled at [facility] on TBD. HISTORY: Gender: M; Age: 81 y/o ; Height: 0 cm; Weight: 0 kg. HTN; Carotid disease PAD AAA Denies smoking. COMPARISON: Previous nuclear testing completed at [place]. Previous echo testing completed on 2020 at [facility]. ACCESSION NUMBER(S): [id number]; [id number]; [id number] ORDERING CLINICIAN: JUDAH HARRINGTON TECHNIQUE: ONE DAY [...] Electronically signed by: ALL HUDSON MD Normal [facility] No Panel Informationon 10-21 Normal -[facility] [place] Work Phone: COVID-19 Positive/NegativeOr dered By: Raul Quan on 10-13-2021 SARS-CoV-2 (COVID-19) N gene JESSIE+probe Ql (Resp) Negative Negative [facility] Comment on above: Testing for SARS-CoV -2 by RT-PCR This test was developed and its performance characteristics determined by [employer] and validated at the [facility]. This test has not been [...] 10-06-2021 Basophils (Bld) [#/Vol] 0.0 10*3/uL 0.0-0.2 [facility] Basophils/100 WBC Auto (Bld) Ordered By: Raul Quan on 10-06-2021 Basophils/100 WBC (Bld) 0.7 % . [facility] Blood hemoglobin measurement (mass/volume)Ordered By: Raul Quan on 10-06-2021 Hemoglobin (Bld) [Mass/Vol] 13.1 g/dL 13.0-17.0 [facility] Blood leukocytes automated c ount (number/volume)Ordered By: Raul Quan on 10-06-2021 WBC (Bld) [#/Vol] 5.2 10*3/uL 4.5-11.0 [facility] Creatinine and Glomerular fi ltration rate.predicted panel (S/P/Bld)Ordered By: Raul Quan on 10-06-2021 Creatinine [Mass/Vol] 0.98 mg/dL 0.64-1.27 [facility] Eosinophils Auto (Bld) [#/Vo l]Ordered By: Raul Quan on 10-06-2021 Eosinophils (Bld) [#/Vol] 0.1 10*3/uL 0.0-0.45 [facility] Eosinophils/100 WBC Auto (Bl d)Ordered By: Raul Quan on 10-06-2021 Eosinophils/100 WBC (Bld) 1.3 % . [facility] Erythrocyte distribution wid th Auto (RBC) [Ratio]Ordered By: Raul Quan on 10-06-2021 Erythrocyte distribution width (RBC) [Ratio] 13.3 % 12.0-14.8 [facility] Estimated glomerular filtrat ion rate (GFR) non- AmericanOrdered By: Raul Quan on 10-06-2021 GFR/1.73 sq M.predicted among non-blacks MDRD (S/P/Bld) [Vol rate/Area] > 60 mL/Min [facility] Hematocrit Auto (Bld) [Volum e fraction]Ordered By: Raul Quan on 10-06-2021 Hematocrit (Bld) [Volume fraction] 40.4 % 38.8-50.0 [facility] - Hematology and Cell countsOrdered By: Raul Quan on 10-06-2021 Nucleated RBC/100 WBC (Bld) [Ratio] 0.0 % 0-0.5 [facility] Lymphocytes Auto (Bld) [#/Vo l]Ordered By: Raul Quan on 10-06-2021 Lymphocytes (Bld) [#/Vol] 1.0 10*3/uL 1.00-4.8 [facility] Lymphocytes/100 WBC Auto (Bl d)Ordered By: Raul Quan on 10-06-2021 Lymphocytes/100 WBC (Bld) 18.4 % . [facility] MCH Auto (RBC) [Entitic mass ]Ordered By: Raul Quan on 10-06-2021 MCH (RBC) [Entitic mass] 30.9 pg 27.5-35.2 [facility] MCHC Auto (RBC) [Mass/Vol]Or dered By: Raul Quan on 10-06-2021 MCHC (RBC) [Mass/Vol] 32.5 g/dL 32.5-35.6 [facility] MCV Auto (RBC) [Entitic vol] Ordered By: Raul Quan on 10-06-2021 MCV (RBC) [Entitic vol] 95.2 fL 83.5-101 [facility] Monocytes Auto (Bld) [#/Vol] Ordered By: Raul Quan on 10-06-2021 Monocytes (Bld) [#/Vol] 0.6 10*3/uL 0.0-0.8 [facility] Monocytes/100 WBC Auto (Bld) Ordered By: Raul Quan on 10-06-2021 Monocytes/100 WBC (Bld) 12.0 % . [facility] Neutrophils Auto (Bld) [#/Vo l]Ordered By: Raul Quan on 10-06-2021 Neutrophils (Bld) [#/Vol] 3.5 10*3/uL 1.8-7.7 [facility] Neutrophils/100 WBC Auto (Bl d)Ordered By: Raul Quan on 10-06-2021 Neutrophils/100 WBC (Bld) 67.6 % . [facility] No Panel InformationOrdered By: Raul Quan on 10-06-2021 Estimated GFR () > 60 mL/Min [facility] Comment on above: GFR estimated refere nce range: According to KDOQI guidelines, <60 ml/min/1.73m2 is sufficient to diagnose a patient with chronic kidney disease. Pharmacy Creatinine Clearance (Chem N/A [facility] Platelet mean volume Auto (B ld) [Entitic vol]Ordered By: Raul Quan on 10-06-2021 Platelet mean volume (Bld) [Entitic vol] 8.1 fL 6.6-10.1 [facility] Platelets Auto (Bld) [#/Vol] Ordered By: Raul Quan on 10-06-2021 Platelets (Bld) [#/Vol] 185 10*3/uL 150-450 [facility] RBC Auto (Bld) [#/Vol]Ordere d By: Raul Quan on 10-06-2021 RBC (Bld) [#/Vol] 4.25 10*6/uL 3.90-5.60 [facility] Serum or plasma calcium richy urement (mass/volume)Ordered By: Raul Quan on 10-06-2021 Calcium [Mass/Vol] 9.0 mg/dL 8.2-10.2 [facility] Serum or plasma chloride young surement (moles/volume)Ordered By: Raul Quan on 10-06-2021 Chloride [Moles/Vol] 101 mmol/L 95-114 [facility] Serum or plasma glucose richy urement (mass/volume)Ordered By: Raul Quan on 10-06-2021 Glucose [Mass/Vol] 187 mg/dL 70-100 [facility] Comment on above: ADA recommended refe rence range Random Glucose Reference Range is dependent on time and content of last meal. Glucose of more than 200 mg/dL in a nonstressed, ambulatory subject supports the diagnosis of Diabetes Mellitus. Serum or plasma potassium me asurement (moles/volume)Ordered By: Raul Quan on 10-06-2021 Potassium [Moles/Vol] 4.0 mmol/L 3.5-5.1 [facility] Serum or plasma sodium measu rement (moles/volume)Ordered By: Raul Quan on 10-06-2021 Sodium [Moles/Vol] 135 mmol/L 136-146 [facility] Serum or plasma total carbon dioxide measurement (moles/volume)Ordered By: Raul Quan on 10-06-2021 CO2 [Moles/Vol] 25.1 mmol/L 22.0-30.0 [facility] Serum or plasma urea nitroge n measurement (mass/volume)Ordered By: Raul Quan on 10-06-2021 Urea nitrogen [Mass/Vol] 13 mg/dL 11-28 [facility] CBC AUTO DIFFon 09-22-2021 BASO # 0.0 103/ul Normal 0.0-0.1 [facility] Comment on above: Performed By: #### C BC #### [facility] [address] [address] [address] Jodi Oglesby Basophils/100 WBC (Bld) 0.3 % Normal 0.2-2.0 [facility] Comment on above: Performed By: #### C BC #### [facility] [address] [address] [address] Jodi Oglesby EO # 0.1 103/ul Normal 0.0-0.7 [facility] Comment on above: Performed By: #### C BC #### [facility] [address] [address] [address] Jodi Oglesby Eosinophils/100 WBC (Bld) 0.8 % Critically low 0.9-7.0 [facility] Comment on above: Performed By: #### C BC #### [facility] [address] [address] [address] Jodi Oglesby Erythrocyte distribution width (RBC) [Ratio] 12.5 % Normal 11.0-15.0 [facility] Comment on above: Performed By: #### C BC #### [facility] [address] [place] [address] Dr. Jodi Oglesby Hematocrit (Bld) [Volume fraction] 43.6 % Normal 42.0-54.0 [facility] Comment on above: Performed By: #### C BC #### [facility] [address] [place] [address] Dr. Jodi Oglesby Hemoglobin (Bld) [Mass/Vol] 14.1 g/dL Normal 14.0-18.0 [facility] Comment on above: Performed By: #### C BC #### [facility] [address] [place] [address] Dr. Jodi Oglesby IG # 0.03 10e3/ul Normal 0.00-0.03 [facility] Comment on above: Performed By: #### C BC #### [facility] [address] [place] [address] Dr. Jodi Oglesby IG % 0.3 % Normal 0.0-0.5 [facility] Comment on above: Performed By: #### C BC #### [facility] [address] [place] [address] Dr. Jodi Oglesby LYMPH # 1.5 103/ul Normal 1.2-3.8 [facility] Comment on above: Performed By: #### C BC #### [facility] [address] [place] [address] Dr. Jodi Oglesby Lymphocytes/100 WBC (Bld) 17.2 % Critically low 20.5-60.0 [facility] Comment on above: Performed By: #### C BC #### [facility] [address] [place] [address] Dr. Jodi Oglesby MANUAL DIFF REQ NO Normal [facility] Comment on above: Performed By: #### C BC #### [facility] [address] [place] [address] Dr. Jodi Oglesby MCH (RBC) [Entitic mass] 31.1 pg Normal 25.9-34.0 [facility] Comment on above: Performed By: #### C BC #### [facility] [address] [place] [address] Dr. Jodi Oglesby MCHC (RBC) [Mass/Vol] 32.3 g/dL Normal 29.9-35.2 [facility] Comment on above: Performed By: #### C BC #### [facility] [address] [place] [address] Dr. Jodi Oglesby MCV (RBC) [Entitic vol] 96.0 fL Critically high 80.0-94.0 [facility] Comment on above: Performed By: #### C BC #### [facility] [address] [place] [address] Dr. Jodi Oglesby MONO # 1.0 103/ul Critically high 0.3-0.8 [facility] Comment on above: Performed By: #### C BC #### [facility] [address] [address] [address] Jodi Oglesby Monocytes/100 WBC (Bld) 10.8 % Normal 1.7-12.0 [facility] Comment on above: Performed By: #### C BC #### [facility] [address] [place] [address] Dr. Jodi Oglesby NEUT # 6.2 103/ul Normal 1.4-6.5 [facility] Comment on above: Performed By: #### C BC #### [facility] [address] [place] [address] Dr. Jodi Oglesby Neutrophils/100 WBC (Bld) 70.6 % Normal 43.0-75.0 [facility] Comment on above: Performed By: #### C BC #### [facility] [address] [place] [address] Dr. Jodi Oglesby Platelet mean volume (Bld) [Entitic vol] 9.6 fL Normal 9.5-13.5 [facility] Comment on above: Performed By: #### C BC #### [facility] [address] [place] [address] Dr. Jodi Oglesby PLT 206 103/ul Normal 150-450 [facility] Comment on above: Performed By: #### C BC #### [facility] [address] [place] [address] Dr. Jodi Oglesby RBC 4.54 106/ul Critically low 4.70-6.10 [facility] Comment on above: Performed By: #### C BC #### [facility] [address] [place] [address] Dr. Jodi Oglesby WBC 8.8 103/ul Normal 4.0-11.0 [facility] Comment on above: Performed By: #### C BC #### [facility] [address] [place] [address] Dr. Jodi Oglesby PROF CHEM 8 (BAS METB)on Anion gap [Moles/Vol] 9.5 mmol/L Normal [facility] Comment on above: Performed By: #### B MP #### [facility] [address] [address] [address] Jodi Oglesby Calcium [Mass/Vol] 9.4 mg/dL Normal 8.5-10.1 [facility] Comment on above: Performed By: #### B MP #### [facility] [address] [place] [address] Dr. Jodi Oglesby Chloride [Moles/Vol] 100 mmol/L Normal 98-107 [facility] Comment on above: Performed By: #### B MP #### [facility] [address] [place] [address] Dr. Jodi Oglesby CO2 [Moles/Vol] 33.2 mmol/L Critically high 21.0-32.0 [facility] Comment on above: Performed By: #### B MP #### [facility] [address] [place] [address] Dr. Jodi Oglesby Creatinine [Mass/Vol] 0.99 mg/dL Normal 0.70-1.30 [facility] Comment on above: Performed By: #### B MP #### [facility] [address] [place] [address] Dr. Jodi Oglesby EGFR-AF SLOVENIAN >60 Normal >=60 [facility] Comment on above: Performed By: #### B MP #### [facility] [address] [place] [address] Dr. Jodi Oglesby EGFR-NON AF SLOVENIAN >60 Normal >=60 [facility] Comment on above: Performed By: #### B MP #### [facility] [address] [place] [address] Dr. Jodi Oglesby Glucose [Mass/Vol] 109 mg/dL Critically high 74-106 T [facility] Comment on above: Performed By: #### B MP #### [facility] [address] [address] [address] Jodi Oglesby Potassium [Moles/Vol] 4.7 mmol/L Normal 3.5-5.1 [facility] Comment on above: Performed By: #### B MP #### [facility] [address] [address] [address] Jodi Oglesby Sodium [Moles/Vol] 138 mmol/L Normal 136-145 [facility] Comment on above: Performed By: #### B MP #### [facility] [address] [address] [address] Jodi Oglesby Urea nitrogen [Mass/Vol] 17.0 mg/dL Normal 7.0-18.0 [facility] Comment on above: Performed By: #### B MP #### [facility] [address] [address] [address] Jodi Oglesby Urea nitrogen/Creatinine [Mass ratio] 17.2 mg/mg Normal [facility] Comment on above: Performed By: #### B MP #### [facility] [address] [address] [address] Jodi Oglesby Creatinine (Bld) [Mass/Vol]O rdered By: Tamar Perea on 09-18-2021 Creatinine [Mass/Vol] 0.8 mg/dL 0.6-1.3 [facility] Comment on above: ER/ESD physician is notified/shown all ISTAT results. Critical values may be confirmed by laboratory testing if deemed necessary by ER attending doctor. No Panel InformationOrdered By: Tamar Perea on 09-18-2021 POC Estimated GFR > 60 [facility] Comment on above: GFR estimated refere nce range: According to KDOQI guidelines, <60 ml/min/1.73m2 is sufficient to diagnose a patient with chronic kidney disease. POC Estimated GFR Non- Amer > 60 [facility] CBC AUTO DIFFon 08-12-2021 BASO # 0.0 103/ul Normal 0.0-0.1 [facility] Comment on above: Performed By: #### C BC #### [facility] [address] [place] [address] Dr. Jodi Oglesby Basophils/100 WBC (Bld) 0.3 % Normal 0.2-2.0 [facility] Comment on above: Performed By: #### C BC #### [facility] [address] [place] [address] Dr. Jodi Oglesby EO # 0.1 103/ul Normal 0.0-0.7 [facility] Comment on above: Performed By: #### C BC #### [facility] [address] [place] [address] Dr. Jodi Oglesby Eosinophils/100 WBC (Bld) 1.8 % Normal 0.9-7.0 [facility] Comment on above: Performed By: #### C BC #### [facility] [address] [place] [address] Dr. Jodi Oglesby Erythrocyte distribution width (RBC) [Ratio] 12.6 % Normal 11.0-15.0 [facility] Comment on above: Performed By: #### C BC #### [facility] [address] [place] [address] Dr. Jodi Oglesby Hematocrit (Bld) [Volume fraction] 40.9 % Critically low 42.0-54.0 [facility] Comment on above: Performed By: #### C BC #### [facility] [address] [place] [address] Dr. Jodi Oglesby Hemoglobin (Bld) [Mass/Vol] 13.4 g/dL Critically low 14.0-18.0 [facility] Comment on above: Performed By: #### C BC #### [facility] [address] [place] [address] Dr. Jodi Oglesby IG # 0.03 10e3/ul Normal 0.00-0.03 [facility] Comment on above: Performed By: #### C BC #### [facility] [address] [place] [address] Dr. Jodi Oglesby IG % 0.4 % Normal 0.0-0.5 [facility] Comment on above: Performed By: #### C BC #### [facility] [address] [place] [address] Dr. Jodi Oglesby LYMPH # 1.4 103/ul Normal 1.2-3.8 [facility] Comment on above: Performed By: #### C BC #### [facility] [address] [place] [address] Dr. Jodi Oglesby Lymphocytes/100 WBC (Bld) 18.6 % Critically low 20.5-60.0 [facility] Comment on above: Performed By: #### C BC #### [facility] [address] [place] [address] Dr. Jodi Oglesby MCH (RBC) [Entitic mass] 31.5 pg Normal 25.9-34.0 [facility] Comment on above: Performed By: #### C BC #### [facility] [address] [place] [address] Dr. Jodi Oglesby MCHC (RBC) [Mass/Vol] 32.8 g/dL Normal 29.9-35.2 [facility] Comment on above: Performed By: #### C BC #### [facility] [address] [place] [address] Dr. Jodi Oglesby MCV (RBC) [Entitic vol] 96.0 fL Critically high 80.0-94.0 [facility] Comment on above: Performed By: #### C BC #### [facility] [address] [place] [address] Dr. Jodi Oglesby MONO # 0.7 103/ul Normal 0.3-0.8 [facility] Comment on above: Performed By: #### C BC #### [facility] [address] [place] [address] Dr. Jodi Oglesby Monocytes/100 WBC (Bld) 9.7 % Normal 1.7-12.0 [facility] Comment on above: Performed By: #### C BC #### [facility] [address] [place] [address] Dr. Jodi Oglesby NEUT # 5.1 103/ul Normal 1.4-6.5 [facility] Comment on above: Performed By: #### C BC #### [facility] [address] [place] [address] Dr. Jodi Oglesby Neutrophils/100 WBC (Bld) 69.2 % Normal 43.0-75.0 [facility] Comment on above: Performed By: #### C BC #### [facility] [address] [place] [address] Dr. Jodi Oglesby Platelet mean volume (Bld) [Entitic vol] 9.8 fL Normal 9.5-13.5 [facility] Comment on above: Performed By: #### C BC #### [facility] [address] [place] [address] Dr. Jodi Oglesby PLT 195 103/ul Normal 150-450 [facility] Comment on above: Performed By: #### C BC #### [facility] [address] [place] [address] Dr. Jodi Oglesby RBC 4.26 106/ul Critically low 4.70-6.10 [facility] Comment on above: Performed By: #### C BC #### [facility] [address] [place] [address] Dr. Jodi Oglesby WBC 7.4 103/ul Normal 4.0-11.0 [facility] Comment on above: Performed By: #### C BC #### [facility] [address] [place] [address] Dr. Jodi Oglesby ASHLEY - TSHon 08-12-2021 TSH 1.879 uIU/mL Normal 0.358-3.74 0 [facility] Comment on above: Performed By: #### D ATTSH DATBMP #### [facility] [address] [place] [address] Dr. Jodi Oglesby TSH RANGE SEE BELOW Normal [facility] Comment on above: Result Comment: <0.3 4 UIU/ml HYPERTHYROID 0.34-5.60 UIU/ml EUTHYROID >5.60 UIU/ml HYPOTHYROID Performed By: #### D ATTSH, DATBMP #### [facility] [address] [place] [address] Dr. Jodi Oglesby ASHLEY- BMP WITH LIPIDon 2021 Anion gap [Moles/Vol] 11.4 mmol/L Normal [facility] Comment on above: Performed By: #### D LULU DATBMP #### [facility] [address] [address] [address] Jodi Oglesby Calcium [Mass/Vol] 8.7 mg/dL Normal 8.5-10.1 [facility] Comment on above: Performed By: #### D LULU DATBMP #### [facility] [address] [place] [address] Dr. Jodi Oglesby Chloride [Moles/Vol] 105 mmol/L Normal 98-107 [facility] Comment on above: Performed By: #### D LULU DATBMP #### [facility] [address] [place] [address] Dr. Jodi Oglesby Cholesterol [Mass/Vol] 113 mg/dL Normal <=200 [facility] Comment on above: Performed By: #### D LULU DATBMP #### [facility] [address] [place] [address] Dr. Jodi Oglesby Cholesterol in HDL [Mass/Vol] 47 mg/dL Normal 40-60 [facility] Comment on above: Performed By: #### D LULU DATBMP #### [facility] [address] [place] [address] Dr. Jodi Oglesby Cholesterol in LDL [Mass/Vol] 58.0 mg/dL Normal [facility] Comment on above: Performed By: #### D LULU DATBMP #### [facility] [address] [place] [address] Dr. Jodi Oglesby CO2 [Moles/Vol] 29.0 mmol/L Normal 21.0-32.0 [facility] Comment on above: Performed By: #### D LULU DATBMP #### [facility] [address] [place] [address] Dr. Jodi Oglesby Creatinine [Mass/Vol] 0.99 mg/dL Normal 0.70-1.30 [facility] Comment on above: Performed By: #### D LULU DATBMP #### [facility] [address] [address] [address] Jodi Oglesby EGFR-AF SLOVENIAN >60 Normal >=60 [facility] Comment on above: Performed By: #### D ATTSH, DATBMP #### [facility] [address] [address] [address] Jodi Oglesby EGFR-NON AF SLOVENIAN >60 Normal >=60 [facility] Comment on above: Performed By: #### D ATTSH, DATBMP #### [facility] [address] [address] [address] Jodi Oglesby Glucose [Mass/Vol] 116 mg/dL Critically high 74-106 T [facility] Comment on above: Performed By: #### D ATTKENDELL, DATBMP #### [facility] [address] [address] [address] Jodi Oglesby HDL NORMAL > or = 60 mg/dl - LO W CARDIOVASCULAR RISK <40 mg/dl - HIGH CARDIOVASCULAR RISK Normal [facility] Comment on above: Performed By: #### D ATTKENDELL, DATBMP #### [facility] [address] [address] [address] Jodi Oglesby LDL CALC NORMAL SEE BELOW Normal [facility] Comment on above: Result Comment: <100 mg/dl OPTIMAL 100 - 129 mg/dl NEAR OR ABOVE OPTIMAL 130 - 159 mg/dl BORDERLINE HIGH 160 - 189 mg/dl HIGH >190 mg/dl VERY HIGH Performed By: #### D ATTKENDELL, DATBMP #### [facility] [address] [address] [address] Jodi Oglesby Potassium [Moles/Vol] 4.4 mmol/L Normal 3.5-5.1 [facility] Comment on above: Performed By: #### D ATTKENDELL, DATBMP #### [facility] [address] [address] [address] Jodi Oglesby Sodium [Moles/Vol] 141 mmol/L Normal 136-145 [facility] Comment on above: Performed By: #### D ATTKENDELL, DATBMP #### [facility] [address] [address] [address] Jodi Oglesby Triglyceride [Mass/Vol] 40 mg/dL Normal <=150 [facility] Comment on above: Performed By: #### D VALERIE LAWSONP #### [facility] [address] [place] [address] Dr. Jodi Oglesby Urea nitrogen [Mass/Vol] 16.0 mg/dL Normal 7.0-18.0 [facility] Comment on above: Performed By: #### ASHLEY TOUREBMP #### [facility] [address] [place] [address] Dr. Jodi Oglesby Urea nitrogen/Creatinine [Mass ratio] 16.2 mg/mg Normal [facility] Comment on above: Performed By: #### D ASHLEY LAWSONBMP #### [facility] [address] [place] [address] Dr. Jodi Oglesby VLDL CALC 8.0 mg/dL Normal [facility] Comment on above: Performed By: #### VALERIE TOUREP #### [facility] [address] [place] [address] Dr. Jodi Oglesby GLYCOHEMOGLOBIN A1Con 2021 ADA RECOMMENDATION SEE BELOW Normal [facility] Comment on above: Result Comment: ADA RECOMMENDED LIMIT 4.0 - 6.0 ADA THERAPEUTIC TARGET < 7.0 ACTION SUGGESTED > 7.0 Performed By: #### D ATA1C #### [facility] [address] [place] [address] Dr. Jodi Oglesby Glucose [Mass/Vol] 131 mg/dL Normal [facility] Comment on above: Performed By: #### D ATA1C #### [facility] [address] [place] [address] Dr. Jodi Oglesby HbA1c (Bld) [Mass fraction] 6.2 % Normal 4.5-6.2 [facility] Comment on above: Performed By: #### D ATA1C #### [facility] [address] [place] [address] Dr. Jodi Oglesby CNOVon 12-11-2020 CNOV Office Visit (VASSMD ) -- CHICO BAKER ([id number]) 1940 M Date Time Provider Department 12/11/20 10:45 AM POWER CATHERINE During your visit today, we recorded the following information about you: Pulse Blood pressure Weight Height 60/minute 122/78 67.6 kg 1.702 m Power Catherine MD 12/11/2020 11:17 AM Signed [facility] OUTPATIENT VISIT DATE December 11, 2020 OUTPATIENT VISIT TYPE EST PRIMARY CARE PHYSICIAN: Shailesh Dunham ([facility]) [address] [place] [address] REFERRING PHYSICIAN Power Catherine [address] [place] [id number] CHIEF COMPLAINT: Patient presents with: Established Patient [...] Power Catherine MD Referring Provider: POWER CATHERINE [[id number]] Allergies As of Date: 12/11/2020 Noted Allergy Reaction SHALINI INHIBITORS 05/09/2015 16 - Unknown GADOLINIUM-CONTAINING CONTRAST ME*05/09/2015 16 - Unknown TETANUS VACCINES AND TOXOID 05/16/2015 16 - Unknown Date Reviewed: 12/11/2020 Reviewed by: Harika Menjivar - Fully Assessed Reason for Visit: Established Patient [175] Follow Up [171] 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 - nitroglycerin sublingual (NITROQUICK) 0.3 mg SL tablet (more content not included)... Normal [facility] 10-30-2020 CNPN Telephone (VASFLOWERD) -- CHICO BAKER ([id number]) 1940 M Date Time Provider Department 10/30/20 [...] [I71.4] Order(s):US ABD AORTA COMPLETE [facility] [[id number]] Order #: [id number] FUTURE Prescriptions as of 11/04/2020 - aspirin, [...] by SHERI MOLINA on 11/04/20 Normal [facility] Vital Signs Date Time Vital Sign Value Performing Clinician Facility 09-03-2023 08:49-0400 Body height 170.18 cm DO [employer] Work Phone: [facility] 09-03-2023 08:49-0400 Body mass index (BMI) [Ratio] 21.9 kg/m2 DO [employer] Work Phone: [facility] 09-03-2023 08:49-0400 Body weight 63.5 kg DO [employer] Work Phone: [facility] 09-03-2023 08:49-0400 Diastolic blood pressure 58 mm[Hg] DO [employer] Work Phone: [facility] 09-03-2023 08:49-0400 Heart rate 63 /min DO [employer] Work Phone: [facility] 09-03-2023 08:49-0400 Respiratory rate 18 /min DO [employer] Work Phone: [facility] 09-03-2023 08:49-0400 SaO2% (BldA) [Mass fraction] 97 % DO [employer] Work Phone: [facility] 09-03-2023 08:49-0400 Systolic blood pressure 110 mm[Hg] DO [employer] Work Phone: [facility] 08-27-2023 08:33-0400 Body height 170.18 cm DO Shailesh Ball Work Phone: [facility] 08-27-2023 08:33-0400 Body mass index (BMI) [Ratio] 21.7 kg/m2 DO Shailesh Ball Work Phone: [facility] 08-27-2023 08:33-0400 Body weight 62.76 kg DO Shailesh Ball Work Phone: [facility] 08-27-2023 08:33-0400 Diastolic blood pressure 65 mm[Hg] DO Shailesh Ball Work Phone: [facility] 08-27-2023 08:33-0400 Heart rate 64 /min DO Shailesh Ball Work Phone: [facility] 08-27-2023 08:33-0400 Respiratory rate 12 /min DO Shailesh Ball Work Phone: [facility] 08-27-2023 08:33-0400 Systolic blood pressure 132 mm[Hg] DO Shailesh Ball Work Phone: [facility] 08-19-2023 11:18-0400 Body height 170.18 cm DO Shailesh Ball Work Phone: [facility] 08-19-2023 11:18-0400 Body mass index (BMI) [Ratio] 21.9 kg/m2 DO Shailesh Ball Work Phone: [facility] 08-19-2023 11:18-0400 Body weight 63.5 kg DO Shailesh Ball Work Phone: [facility] 08-19-2023 11:18-0400 Diastolic blood pressure 56 mm[Hg] DO Shailesh Ball Work Phone: [facility] 08-19-2023 11:18-0400 Heart rate 60 /min DO Shailesh Ball Work Phone: [facility] 08-19-2023 11:18-0400 Respiratory rate 18 /min DO Shailesh Ball Work Phone: [facility] 08-19-2023 11:18-0400 SaO2% (BldA) [Mass fraction] 98 % DO Shailesh Ball Work Phone: [facility] 08-19-2023 11:18-0400 Systolic blood pressure 102 mm[Hg] DO Shailesh Ball Work Phone: [facility] 07-05-2023 10:23-0400 Body height 170.18 cm DO Shailesh Ball Work Phone: [facility] 07-05-2023 10:23-0400 Body mass index (BMI) [Ratio] 21.4 kg/m2 DO Shailesh Ball Work Phone: [facility] 07-05-2023 10:23-0400 Body temperature 97 [degF] DO Shailesh Ball Work Phone: [facility] 07-05-2023 10:23-0400 Body weight 62.14 kg DO Shailesh Ball Work Phone: [facility] 07-05-2023 10:23-0400 Diastolic blood pressure 48 mm[Hg] DO Shailesh Ball Work Phone: [facility] 07-05-2023 10:23-0400 Heart rate 60 /min DO Shailesh Ball Work Phone: [facility] 07-05-2023 10:23-0400 SaO2% (BldA) [Mass fraction] 97 % DO Shailesh Ball Work Phone: [facility] 07-05-2023 10:23-0400 Systolic blood pressure 96 mm[Hg] DO Shailesh Ball Work Phone: [facility] 06-22-2023 10:01-0400 Body height 170.18 cm DO Shailesh Ball Work Phone: [facility] 06-22-2023 10:01-0400 Body mass index (BMI) [Ratio] 21.5 kg/m2 DO Shailesh Ball Work Phone: [facility] 06-22-2023 10:01-0400 Body weight 62.36 kg DO Shailesh Ball Work Phone: [facility] 06-22-2023 10:01-0400 Diastolic blood pressure 69 mm[Hg] DO Shailesh Ball Work Phone: [facility] 06-22-2023 10:01-0400 Heart rate 64 /min DO Shailesh Ball Work Phone: [facility] 06-22-2023 10:01-0400 Respiratory rate 12 /min DO Shailesh Ball Work Phone: [facility] 06-22-2023 10:01-0400 Systolic blood pressure 95 mm[Hg] DO Shailesh Ball Work Phone: [facility] 05-04-2023 11:14-0500 Blood Pressure Location Ivelisse Lue [facility] 05-04-2023 11:14-0500 Diastolic blood pressure 46 mm[Hg] Ivelisse Lue [facility] 05-04-2023 11:14-0500 Heart rate 63 /min Ivelisse Lue [facility] 05-04-2023 11:14-0500 Systolic blood pressure 116 mm[Hg] Ivelisse Lue [facility] 04-14-2023 10:15-0500 Body height 170.18 cm Shailesh Ball Other [facility] [employer] Other 04-14-2023 10:15-0500 Body mass index (BMI) [Ratio] 21.64 kg/m2 Shailesh Ball Other [employer] [facility] [employer] Other 04-14-2023 10:15-0500 Body weight 62.69 kg Shailesh Ball Other [employer] [facility] [employer] Other 04-14-2023 10:15-0500 Diastolic blood pressure 58 mm[Hg] Shailesh Ball Other [facility] [employer] Other 04-14-2023 10:15-0500 Respiratory rate 12 /min Shailesh Ball Other [facility] [employer] Other 04-14-2023 10:15-0500 Systolic blood pressure 118 mm[Hg] Shailesh Ball Other [facility] [employer] Other 03-29-2023 10:00-0500 Body height 170.18 cm Shailesh Ball Other [facility] 03-29-2023 10:00-0500 Body mass index (BMI) [Ratio] 21.8 kg/m2 Shailesh Ball Other [facility] [employer] Other 03-29-2023 10:00-0500 Body weight 63.14 kg Shailesh Ball Other [facility] 03-29-2023 10:00-0500 Diastolic blood pressure 74 mm[Hg] Shailesh Ball Other [facility] 03-29-2023 10:00-0500 Respiratory rate 12 /min Shailesh Ball Other [facility] [employer] Other 03-29-2023 10:00-0500 Systolic blood pressure 132 mm[Hg] Shailesh Ball Other [facility] 01-13-2023 08:49-0500 Blood Pressure Location Ivelisse Lue [facility] 01-13-2023 08:49-0500 Diastolic blood pressure 74 mm[Hg] Ivelisse Lue [facility] 01-13-2023 08:49-0500 Heart rate 68 /min Ivelisse Lue [facility] 01-13-2023 08:49-0500 Respiratory rate 16 /min Ivelisse Lue [facility] 01-13-2023 08:49-0500 Systolic blood pressure 156 mm[Hg] Ivelisse Lue [facility] 11-10-2022 10:30-0400 Body height 170.18 cm Raul Quan Other [employer] [facility] [employer] Other 11-10-2022 10:30-0400 Body mass index (BMI) [Ratio] 20.99 kg/m2 Raul Quan Other [employer] Other 11-10-2022 10:30-0400 Body temperature 97.8 [degF] Raul Quan Other [employer] Other 11-10-2022 10:30-0400 Body weight 60.78 kg Raul Quan Other [employer] Other 11-10-2022 10:30-0400 Diastolic blood pressure 64 mm[Hg] Raul Quan Other [employer] Other 11-10-2022 10:30-0400 SaO2% (BldA) [Mass fraction] 98 % Raul Quan Other [employer] Other 11-10-2022 10:30-0400 Systolic blood pressure 110 mm[Hg] Raul Lawrencerejakub Other [employer] Other 10-07-2022 08:49-0400 Blood Pressure Location Ivelisse Lue [facility] 10-07-2022 08:49-0400 Diastolic blood pressure 74 mm[Hg] Ivelisse Lue [facility] 10-07-2022 08:49-0400 Heart rate 75 /min Ivelisse Lue [facility] 10-07-2022 08:49-0400 Systolic blood pressure 139 mm[Hg] Ivelisse Lue [facility] 08-04-2022 11:15-0400 Body height 170.18 cm Raul Quan Other [employer] [facility] [employer] Other 08-04-2022 11:15-0400 Body mass index (BMI) [Ratio] 21.77 kg/m2 Raul Quan Other [employer] Other 08-04-2022 11:15-0400 Body temperature 97.8 [degF] Raul Quan Other [employer] Other 08-04-2022 11:15-0400 Body weight 63.05 kg Raul Quan Other [employer] Other 08-04-2022 11:15-0400 Diastolic blood pressure 68 mm[Hg] Raul Quan Other [employer] Other 08-04-2022 11:15-0400 SaO2% (BldA) [Mass fraction] 97 % Raul Quan Other [employer] Other 08-04-2022 11:15-0400 Systolic blood pressure 108 mm[Hg] Raul Quan Other [facility] [employer] Other 07-09-2022 08:00-0400 Body temperature 98.6 [degF] DO Shailesh Ball Work Phone: [facility] 07-09-2022 08:00-0400 Diastolic blood pressure 72 mm[Hg] DO Shailesh Ball Work Phone: [facility] 07-09-2022 08:00-0400 Heart rate 69 /min DO Shailesh Ball Work Phone: [facility] 07-09-2022 08:00-0400 Respiratory rate 16 /min DO Shailesh Ball Work Phone: [facility] 07-09-2022 08:00-0400 SaO2% (BldA) [Mass fraction] 97 % DO Shailesh Ball Work Phone: [facility] 07-09-2022 08:00-0400 Systolic blood pressure 154 mm[Hg] DO Shailesh Ball Work Phone: [facility] 07-09-2022 06:00-0400 Body weight 65.8 kg DO Shailesh Ball Work Phone: [facility] 07-08-2022 10:52-0400 Inhaled oxygen flow rate 8 L/min DO Shailesh Ball Work Phone: [facility] 07-08-2022 08:34-0400 Body height 167.64 cm DO Shailesh Ball Work Phone: [facility] 07-08-2022 08:34-0400 Body mass index (BMI) [Ratio] 22.7 kg/m2 DO Shailesh Ball Work Phone: [facility] 06-24-2022 09:27-0400 Blood Pressure Location Ivelisse Hassan [facility] 06-24-2022 09:27-0400 Diastolic blood pressure 75 mm[Hg] Ivelisse Hassan [facility] 06-24-2022 09:27-0400 Heart rate 66 /min Ivelisse Lue [facility] 06-24-2022 09:27-0400 Respiratory rate 16 /min Ivelisse Lue [facility] 06-24-2022 09:27-0400 Systolic blood pressure 120 mm[Hg] Ivelisse Lue [facility] 05-21-2022 09:30-0400 Body height 170.18 cm Shailesh Ball Other [facility] [employer] Other 05-21-2022 09:30-0400 Body mass index (BMI) [Ratio] 21.8 kg/m2 Shailesh Ball Other [employer] [facility] [employer] Other 05-21-2022 09:30-0400 Body weight 63.14 kg Shailesh Ball Other [facility] [employer] Other 05-21-2022 09:30-0400 Diastolic blood pressure 73 mm[Hg] Shailesh Ball Other [facility] [employer] Other 05-21-2022 09:30-0400 Respiratory rate 12 /min Shailesh Ball Other [employer] Other 05-21-2022 09:30-0400 Systolic blood pressure 121 mm[Hg] Shailesh Ball Other [employer] Other 05-19-2022 11:00-0400 Body height 170.18 cm Tamar Perea Other [employer] Other 05-19-2022 11:00-0400 Body mass index (BMI) [Ratio] 22.02 kg/m2 Tamar Perea Other [employer] Other 05-19-2022 11:00-0400 Body temperature 97.5 [degF] Tamar Perea Other [employer] Other 05-19-2022 11:00-0400 Body weight 63.78 kg Tamar Perea Other [employer] Other 05-19-2022 11:00-0400 Diastolic blood pressure 76 mm[Hg] Tamar Perea Other [employer] Other 05-19-2022 11:00-0400 SaO2% (BldA) [Mass fraction] 98 % Tamar Perea Other [employer] Other 05-19-2022 11:00-0400 Systolic blood pressure 148 mm[Hg] Tamar Perea Other [employer] Other 04-15-2022 08:57-0500 Blood Pressure Location Ivelisse Lue [facility] 04-15-2022 08:57-0500 Diastolic blood pressure 78 mm[Hg] Ivelisse Lue [facility] 04-15-2022 08:57-0500 Heart rate 68 /min Ivelisse Lue [facility] 04-15-2022 08:57-0500 Respiratory rate 16 /min Ivelisse Lue [facility] 04-15-2022 08:57-0500 Systolic blood pressure 122 mm[Hg] Ivelisse Lue [facility] 03-10-2022 11:30-0500 Body height 170.18 cm Raul Quan Other [employer] Other 03-10-2022 11:30-0500 Body mass index (BMI) [Ratio] 21.2 kg/m2 Raul Quan Other [employer] Other 03-10-2022 11:30-0500 Body temperature 97.8 [degF] Raul Quan Other [employer] Other 03-10-2022 11:30-0500 Body weight 61.42 kg Raul Quan Other [employer] Other 03-10-2022 11:30-0500 Diastolic blood pressure 64 mm[Hg] Raul Quan Other [employer] Other 03-10-2022 11:30-0500 SaO2% (BldA) [Mass fraction] 98 % Raul Quan Other [employer] Other 03-10-2022 11:30-0500 Systolic blood pressure 108 mm[Hg] Raul Quan Other [employer] Other 02-25-2022 11:09-0500 Blood Pressure Location IVA ANTOINE [facility] 02-25-2022 11:09-0500 Diastolic blood pressure 63 mm[Hg] IVA ANTOINE [facility] 02-25-2022 11:09-0500 Heart rate 64 /min IVA ARASH [facility] 02-25-2022 11:09-0500 Systolic blood pressure 105 mm[Hg] IVA ARASH [facility] 02-18-2022 14:12-0500 Blood Pressure Location IVA ARASH [facility] 02-18-2022 14:12-0500 Diastolic blood pressure 83 mm[Hg] IVA ARASH [facility] 02-18-2022 14:12-0500 Heart rate 70 /min IVA ARASH [facility] 02-18-2022 14:12-0500 Systolic blood pressure 142 mm[Hg] IVA ARASH [facility] 02-11-2022 08:42-0500 Blood Pressure Location Ivelisse Lue [facility] 02-11-2022 08:42-0500 Diastolic blood pressure 73 mm[Hg] Ivelisse Lue [facility] 02-11-2022 08:42-0500 Heart rate 68 /min Ivelisse Lue [facility] 02-11-2022 08:42-0500 Respiratory rate 16 /min Ivelisse Lue [facility] 02-11-2022 08:42-0500 Systolic blood pressure 150 mm[Hg] Ivelisse Lue [facility] 02-05-2022 08:00-0500 Body temperature 99.1 [degF] DO Shailesh Ball Work Phone: [facility] 02-05-2022 08:00-0500 Diastolic blood pressure 76 mm[Hg] DO Shailesh Ball Work Phone: [facility] 02-05-2022 08:00-0500 Heart rate 78 /min DO Shailesh Ball Work Phone: [facility] 02-05-2022 08:00-0500 Respiratory rate 16 /min DO Shailesh Ball Work Phone: [facility] 02-05-2022 08:00-0500 SaO2% (BldA) [Mass fraction] 95 % DO Shailesh Ball Work Phone: [facility] 02-05-2022 08:00-0500 Systolic blood pressure 168 mm[Hg] DO Shailesh Ball Work Phone: [facility] 02-05-2022 03:21-0500 Body weight 64.1 kg DO Shailesh Ball Work Phone: [facility] 02-04-2022 11:43-0500 Inhaled oxygen flow rate 6 L/min DO Shailesh Ball Work Phone: [facility] 02-04-2022 09:31-0500 Body height 167.64 cm DO Shailesh Ball Work Phone: [facility] 02-04-2022 09:31-0500 Body mass index (BMI) [Ratio] 23.3 kg/m2 DO Shailesh Ball Work Phone: [facility] 01-20-2022 12:30-0500 Body height 170.18 cm Raul Quan Other [employer] Other 01-20-2022 12:30-0500 Body mass index (BMI) [Ratio] 21.92 kg/m2 Raul Quan Other [employer] Other 01-20-2022 12:30-0500 Body temperature 97.7 [degF] Raul Buehrer Other [employer] Other 01-20-2022 12:30-0500 Body weight 63.5 kg Raul Buehrer Other [employer] Other 01-20-2022 12:30-0500 Diastolic blood pressure 64 mm[Hg] Raul Buehrer Other [employer] Other 01-20-2022 12:30-0500 SaO2% (BldA) [Mass fraction] 99 % Raul Buehrer Other [employer] Other 01-20-2022 12:30-0500 Systolic blood pressure 116 mm[Hg] Raul Buehrer Other [employer] Other 01-05-2022 11:15-0400 Body height 170.18 cm Raul Buehrer Other [employer] Other 01-05-2022 11:15-0400 Body mass index (BMI) [Ratio] 21.92 kg/m2 Raul Buehrer Other [employer] Other 01-05-2022 11:15-0400 Body temperature 96 [degF] Raul Buehrer Other [employer] Other 01-05-2022 11:15-0400 Body weight 63.5 kg Raul Buehrer Other [employer] Other 01-05-2022 11:15-0400 Diastolic blood pressure 58 mm[Hg] Raul Buehrer Other [employer] Other 01-05-2022 11:15-0400 SaO2% (BldA) [Mass fraction] 99 % Raul Lawrencemary ann Other [employer] Other 01-05-2022 11:15-0400 Systolic blood pressure 100 mm[Hg] Raul Quan Other [employer] Other 11-24-2021 12:30-0400 Body height 170.18 cm Tamar Martinezmoy Other [employer] Other 11-24-2021 12:30-0400 Body mass index (BMI) [Ratio] 21.92 kg/m2 Tamar Martinezmoy Other [employer] Other 11-24-2021 12:30-0400 Body temperature 97.5 [degF] Tamar Martinezmoy Other [employer] Other 11-24-2021 12:30-0400 Body weight 63.5 kg Tamar Martinezmoy Other [employer] Other 11-24-2021 12:30-0400 Diastolic blood pressure 50 mm[Hg] Tamar Zhuo Other [employer] Other 11-24-2021 12:30-0400 SaO2% (BldA) [Mass fraction] 98 % Tamar Zhuo Other [employer] Other 11-24-2021 12:30-0400 Systolic blood pressure 96 mm[Hg] Tamar Zhuo Other [employer] Other 10-21-2021 07:30-0400 50 1 Shailesh E Ball Work Phone: [facility] [place] Work Phone: Comment on above: [id number] 10-15-2021 08:27-0400 Body height 167.64 cm DO Shailesh Ball Work Phone: [facility] 10-15-2021 08:27-0400 Body temperature 97.7 [degF] DO Shailesh Ball Work Phone: [facility] 10-15-2021 08:27-0400 Body weight 66 kg DO Shailesh Ball Work Phone: [facility] 10-15-2021 08:27-0400 Diastolic blood pressure 75 mm[Hg] DO Shailesh Ball Work Phone: [facility] 10-15-2021 08:27-0400 Heart rate 73 /min DO Shailesh Ball Work Phone: [facility] 10-15-2021 08:27-0400 Respiratory rate 16 /min DO Shailesh Ball Work Phone: [facility] 10-15-2021 08:27-0400 SaO2% (BldA) [Mass fraction] 97 % DO Shailesh Ball Work Phone: [facility] 10-15-2021 08:27-0400 Systolic blood pressure 143 mm[Hg] DO Shailesh Ball Work Phone: [facility] 09-30-2021 13:30-0400 Body height 170.18 cm Tamar Perea Other [facility] [employer] Other 09-30-2021 13:30-0400 Body mass index (BMI) [Ratio] 24.27 kg/m2 Tamar Perea Other [facility] [employer] Other 09-30-2021 13:30-0400 Body temperature 97.4 [degF] Tamar Perea Other [employer] Other 09-30-2021 13:30-0400 Body weight 70.31 kg Tamar Perea Other [employer] Other 09-30-2021 13:30-0400 Diastolic blood pressure 70 mm[Hg] Tamar Perea Other [employer] Other 09-30-2021 13:30-0400 SaO2% (BldA) [Mass fraction] 98 % Tamar Perea Other [employer] Other 09-30-2021 13:30-0400 Systolic blood pressure 140 mm[Hg] Tamar Perea Other [employer] Other 09-15-2021 11:00-0400 Body height 170.18 cm Tamar Perea Other [employer] Other 09-15-2021 11:00-0400 Body mass index (BMI) [Ratio] 24.27 kg/m2 Tamar Perea Other [employer] Other 09-15-2021 11:00-0400 Body temperature 96.4 [degF] Tamar Perea Other [employer] Other 09-15-2021 11:00-0400 Body weight 70.31 kg Tamar Perea Other [employer] Other 09-15-2021 11:00-0400 Diastolic blood pressure 72 mm[Hg] Tamar Martinezjerardokhalida Other [employer] Other 09-15-2021 11:00-0400 SaO2% (BldA) [Mass fraction] 98 % Tamar Perea Other [employer] Other 09-15-2021 11:00-0400 Systolic blood pressure 138 mm[Hg] Tamar Perea Other [employer] Other 07-28-2021 10:45-0400 Body height 170.18 cm Raul Quan Other [employer] Other 07-28-2021 10:45-0400 Body mass index (BMI) [Ratio] 24.27 kg/m2 Raul Lawrencerer Other [employer] Other 07-28-2021 10:45-0400 Body temperature 96.6 [degF] Raul Quan Other [employer] Other 07-28-2021 10:45-0400 Body weight 70.31 kg Raul Lawrencerer Other [employer] Other 07-28-2021 10:45-0400 Diastolic blood pressure 78 mm[Hg] Raul Lawrencerer Other [employer] Other 07-28-2021 10:45-0400 SaO2% (BldA) [Mass fraction] 98 % Raul Lawrencerer Other [employer] Other 07-28-2021 10:45-0400 Systolic blood pressure 190 mm[Hg] Raul Doverehrer Other [employer] Other Encounters Encounter Date Encounter Type Care Provider Facility Start: 09-17-2023 ambulatory [facility] Start: 09-03-2023 End: 09-03-2023 ambulatory DO Shailesh Ball Work Phone: [facility] Work Phone: Start: 09-03-2023 End: 09-03-2023 Patient encounter procedure DO Shailesh Ball Work Phone: [facility] Work Phone: Start: 08-31-2023 End: 08-31-2023 Patient encounter procedure DO Shailesh Ball Work Phone: [facility] Work Phone: Start: 08-31-2023 End: 08-31-2023 ambulatory DO Shailesh Ball Work Phone: [facility] Work Phone: Start: 08-27-2023 End: 08-27-2023 ambulatory DO Shailesh Ball Work Phone: [facility] Work Phone: Start: 08-27-2023 End: 08-27-2023 Patient encounter procedure DO Shailesh Ball Work Phone: [facility] Work Phone: Start: 08-19-2023 End: 08-19-2023 ambulatory DO Shailesh Ball Work Phone: [facility] Work Phone: Start: 08-19-2023 End: 08-19-2023 Patient encounter procedure DO Shailesh Ball Work Phone: [facility] Work Phone: Start: 08-18-2023 End: 08-18-2023 ambulatory AMBER Melgoza [facility] Start: 08-18-2023 End: 08-18-2023 [facility] Start: 08-17-2023 End: 08-17-2023 ambulatory YSABEL JOHN [facility] Start: 08-13-2023 End: 08-13-2023 ambulatory YSABEL JOHN [facility] Start: 08-04-2023 End: 08-04-2023 ambulatory YSABEL JOHN [facility] Start: 07-27-2023 End: 07-27-2023 ambulatory CLIFTON CORREA Not Available Start: 07-05-2023 End: 07-05-2023 ambulatory DO Shailesh Ball Work Phone: [facility] Work Phone: Start: 07-05-2023 End: 07-05-2023 Patient encounter procedure DO Shailesh Ball Work Phone: [facility] Vascular Surgery Work Phone: Start: 06-22-2023 End: 06-22-2023 ambulatory DO Shailesh Ball Work Phone: [facility] Work Phone: Start: 06-22-2023 End: 06-22-2023 Patient encounter procedure DO Shailesh Ball Work Phone: [facility] Work Phone: Start: 06-16-2023 End: 06-16-2023 Patient encounter procedure DO Sahilesh Ball Work Phone: [facility]-CT Scan [facility] [place] Work Phone: Start: 06-16-2023 End: 06-16-2023 ambulatory DO Shailesh Ball Work Phone: [facility] Work Phone: Start: 05-04-2023 End: 05-05-2023 ambulatory Ivelisse Hassan [facility] Start: 05-04-2023 End: 05-04-2023 Lab Drop off Ivelisse Hassan [facility] Start: 05-04-2023 End: 05-04-2023 Patient encounter procedure Ivelisse Hassan [facility] Start: 04-28-2023 End: 04-29-2023 ambulatory Ivelisse Hassan Facility::[id number] Start: 04-26-2023 Non-patient / Non-visit DO Ryder Dunham Work Phone: [facility] Work Phone: Start: 04-20-2023 Non-patient / Non-visit DO Ryder Dunham Work Phone: [facility] Work Phone: Start: 04-20-2023 Non-patient / Non-visit DO Ryder Dunham Work Phone: [facility] Work Phone: Start: 04-14-2023 End: 04-14-2023 ambulatory Shailesh Dunham Other [employer] Other Start: 04-14-2023 Encounter for other preprocedural examination Shailesh Dunham [facility] Start: 04-14-2023 Office outpatient vi sit 15 minutes Shailesh Dunham [facility] Start: 04-08-2023 End: 04-08-2023 ambulatory Shailesh Dunham Other [employer] Other Start: 04-08-2023 Telephone encounter Shailesh Dunham [facility] Start: 04-05-2023 End: 04-05-2023 ambulatory Shailesh Dunham Other [employer] Other Start: 04-05-2023 Telephone encounter Shailesh Dunham [facility] Start: 04-04-2023 End: 04-04-2023 ambulatory Raul Quan Other [employer] Other Start: 04-04-2023 Telephone encounter Raul Quan [facility] Start: 03-29-2023 End: 03-29-2023 ambulatory Shailesh Dunham Other [employer] Other Start: 03-29-2023 Transitional care ma antonina srvc 14 day discharge Shailesh Dunham [facility] Start: 03-29-2023 End: 03-29-2023 Patient encounter procedure DO Shailesh Dunham Work Phone: [facility]- Start: 03-25-2023 End: 03-25-2023 ambulatory Raul Quan Other [facility] [employer] Other Start: 03-25-2023 Telephone encounter Raul Quan [facility] Start: 03-24-2023 End: 03-25-2023 ambulatory Ivelisse Hassan Facility:CD:[id number] Start: 01-13-2023 End: 01-14-2023 ambulatory Ivelisse Hassan Facility:[facility] Start: 01-13-2023 End: 01-13-2023 Patient encounter procedure Ivelisse Hassan [facility] Start: 11-10-2022 Office outpatient vi sit 25 minutes Raul Quan [facility] Vascular Surgery Start: 11-10-2022 End: 11-10-2022 Patient encounter procedure DO Shailesh Dunham Work Phone: [facility]-Ultrasound [facility] Start: 11-10-2022 End: 11-10-2022 ambulatory DO Shailesh Dunham Work Phone: [facility] [employer] Other Start: 10-07-2022 End: 10-08-2022 ambulatory Ivelisse Hymane Facility:[facility] Start: 10-07-2022 End: 10-07-2022 Patient encounter procedure Ivelisse Hymane [facility] Start: 08-04-2022 End: 08-04-2022 ambulatory Raul Quan Other [employer] Other Start: 08-04-2022 Postop follow up vis it related to original px Raul Lawrencemary ann [facility] Start: 07-28-2022 End: 07-29-2022 ambulatory Ivelisse Hassan Facility:[facility] Start: 07-14-2022 ambulatory Ivelisse Hassan Facility:C D:[id number] Start: 07-09-2022 End: 07-09-2022 ambulatory Shailesh Dunham Other [employer] Other Start: 07-09-2022 Telephone encounter [facility] Start: 07-08-2022 End: 07-08-2022 ambulatory Shailesh Dunham Other [employer] Other Start: 07-08-2022 Telephone encounter Shailesh Enrico [facility] Start: 07-08-2022 End: 07-09-2022 Evaluation and management of inpatient DO Shailesh Dunham Work Phone: [facility] [place] [facility] Work Phone: Start: 07-01-2022 End: 07-01-2022 ambulatory DO Shailesh Dunham Work Phone: [facility] Work Phone: Start: 07-01-2022 End: 07-01-2022 Patient encounter procedure DO Shailesh Dunham Work Phone: [facility] Work Phone: Start: 06-24-2022 End: 06-25-2022 ambulatory Ivelisse Hassan Facility:[facility] Start: 06-24-2022 End: 06-24-2022 Patient encounter procedure Ivelisse Hassan [facility] Start: 05-21-2022 End: 05-21-2022 ambulatory Shailesh Dunham Other [employer] Other Start: 05-21-2022 Patient encounter procedure Shailesh Dunham [facility] Start: 05-19-2022 End: 05-19-2022 ambulatory Tamar Perea Other [employer] Other Start: 05-19-2022 Follow-up encounter Tamar Martinezmoy [facility] Start: 05-13-2022 End: 05-13-2022 ambulatory Raul Quan Other [employer] Other Start: 05-13-2022 Telephone encounter Raul Dovernakul [facility] Start: 05-11-2022 End: 05-11-2022 ambulatory DO Shailesh Dunahm Work Phone: [facility] Work Phone: Start: 05-11-2022 End: 05-11-2022 Patient encounter procedure DO Shailesh Dunham Work Phone: [facility] Scan [facility] [place] Work Phone: Start: 04-23-2022 End: 04-23-2022 ambulatory Raul Quan Other [employer] Other Start: 04-23-2022 Telephone encounter Raul Quan [facility] Vascular Surgery Start: 04-15-2022 End: 04-15-2022 Lab Drop off Ivelisse Hassan [facility] Start: 04-15-2022 End: 04-15-2022 Patient encounter procedure Ivelisse Hassan [facility] Start: 04-14-2022 End: 04-14-2022 ambulatory Shailesh Dunham Other [employer] Other Start: 04-14-2022 Telephone encounter Shailesh AYON G [facility] Start: 03-10-2022 End: 03-10-2022 ambulatory Raul Quan Other [facility] [employer] Other Start: 03-10-2022 Office outpatient vi sit 25 minutes Raul Quan [facility] Vascular Surgery Start: 02-25-2022 End: 02-25-2022 Patient encounter procedure IVA ANTOINE [facility] Start: 02-18-2022 End: 02-18-2022 Patient encounter procedure IVA BUSHRY [facility] Start: 02-11-2022 End: 02-11-2022 Lab Drop off Ivelisse Hassan [facility] Start: 02-11-2022 End: 02-11-2022 Patient encounter procedure Ivelisse Hassan [facility] Start: 02-10-2022 End: 02-11-2022 ambulatory IVELISSE HASSAN . Facility:[facility] Start: 02-07-2022 Encounter for other preprocedural examination DR RAUL QUAN [facility] Start: 02-07-2022 Encounter for preprocedural laboratory examination DR RAUL QUAN [facility] Start: 02-04-2022 End: 02-05-2022 Evaluation and management of inpatient DO Shailesh Dunham Work Phone: [facility] [place] [facility] Start: 02-02-2022 End: 02-03-[address] RAUL QUAN Facility:[facility] Start: 02-02-2022 End: 02-03-2022 Encounter for other preprocedural examination DR RAUL QUAN Facility:[facility] Start: 01-20-2022 Office outpatient vi sit 25 minutes Raul Quan [facility] Vascular Surgery Start: 01-20-2022 End: 01-20-2022 ambulatory DO Shailesh Dunham Work Phone: [employer] Other Start: 01-20-2022 End: 01-20-2022 Patient encounter procedure DO Shailesh Dunham Work Phone: [facility]-Ultrasound [facility] Start: 01-05-2022 End: 01-05-2022 ambulatory Raul Quan Other [employer] Other Start: 01-05-2022 Office outpatient vi sit 25 minutes Raul Quan [facility] Vascular Surgery Start: 12-08-2021 End: 12-09-[address] SHAILESH DUNHAM Facility:[facility] Start: 12-02-2021 End: 12-02-[address] SHAILESH DUNHAM Facility:[facility] Start: 11-24-2021 End: 11-24-2021 ambulatory Tamar Perea Other [employer] Other Start: 11-24-2021 Patient encounter procedure Tamar Brit [facility] V[facility] Surgery Start: 11-11-2021 End: 11-11-[address] SHAILESH DUNHAM Facility:[facility] Start: 10-26-2021 End: 10-26-[address] SHAILESH DUNHAM Facility:[facility] Start: 10-21-2021 Patient encounter procedure Shailesh Dunham Work Phone: [facility] [address] [place] Work Phone: Start: 10-16-2021 Telephone encounter Judah Vivas MD Work Phone: [facility] [address] DO Work Phone: Start: 10-15-2021 End: 10-15-2021 Evaluation and management of inpatient DO Shailesh Dunham Work Phone: [facility] [facility] Start: 10-13-2021 End: 10-13-2021 Patient encounter procedure DO Shailesh Enrico Work Phone: [facility]-Pre-Surgical Testing Start: 10-06-2021 End: 10-06-2021 Patient encounter procedure DO Shailesh Dunham Work Phone: [facility]-Pre-Surgical Testing Start: 09-30-2021 End: 09-30-2021 ambulatory Tamar Perea Other [employer] Other Start: 09-30-2021 Encounter for other preprocedural examination Tamar Perea [facility] Start: 09-30-2021 Follow-up encounter Tamar Livingston [facility] Start: 09-22-2021 End: 09-23-[address] SHAILESH DUNHAM Facility: Start: 09-18-2021 End: 09-18-2021 Patient encounter procedure DO Shailesh Enrico Work Phone: [facility]-CT Scan Main [place] Start: 09-15-2021 End: 09-15-2021 ambulatory Tamar Perea Other [employer] Other Start: 09-15-2021 Follow-up encounter Tamar Perea [facility] Start: 08-27-2021 End: 08-27-2021 Patient encounter procedure DO Shailesh Dunham Work Phone: [facility]-Ultrasound [facility] Start: 08-12-2021 End: 08-13-[address] KURTZ LISTED REQUEST Facility:[facility]1 Start: 07-28-2021 End: 07-28-2021 ambulatory Raul Quan Other [employer] Other Start: 07-28-2021 Office outpatient ne w 45 minutes Raul Quan [facility] Start: 06-13-2020 End: 06-13-2020 Patient encounter procedure Lisandra Sher Work Phone: [facility] Work Phone: Patient encounter status Judah Harrington MD Work Phone: [facility] [facility] DO Work Phone: Procedures Date Procedure Procedure Detail Performing Clinician Start: 06-16-2023 Computed tomography of abdomen and pelvis with contrast DO Shailesh Dunham Work Phone: Start: 05-04-2023 Cystoscopic removal of ureteric stent Ivelisse Hassan Start: 04-28-2023 Cystoscopic insertion of ureteric stent Ivelisse Hassan Start: 11-10-2022 Doppler ultrasonography of bilateral carotid arteries DO Shailesh Dunham [employer] Phone: Start: 07-28-2022 Cystourethroscopy with dilation of urethral stricture Ivelisse Hassan Start: 07-08-2022 Insertion of carotid artery stent DO Ryder Dunham Work Phone: Start: 05-11-2022 Computed tomography angiography of abdominal and/or pelvic blood vessel DO Shailesh [employer] Phone: Start: 05-11-2022 CT angiography of head DO Shailesh Dunham [employer] Phone: Start: 05-11-2022 CT angiography of neck vessels DO Josué fischer [employer] Work Phone: Start: 02-10-2022 PSA screening IVELISSE HASSAN . Comment on above: Performed By: #### DATA1C #### [facility] [address] [place] [address] Dr. 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 Ivelisse Hassan Start: 02-04-2022 Endovascular repair of abdominal aortic aneurysm DO [employer] Phone: Start: 01-20-2022 Doppler ultrasonography of bilateral carotid arteries DO [employer] Phone: Start: 09-18-2021 Computed tomography angiography of abdominal and/or pelvic blood vessel DO [employer] Phone: Start: 08-27-2021 US scan of aorta DO [employer] Phone: Start: 08-27-2021 Doppler ultrasonography of bilateral carotid arteries DO Shailesh Ball Work Phone: Start: 06-13-2020 Imm. administration COVID19 Zagster[employer] Work Phone: Start: 06-13-2020 SARS-CoV-2 vaccine, 0.5ml [employer] Work Phone: Start: 10-18-2019 Transurethral prostatectomy Ivelisse Lue Start: 04-06-2019 Cystoscope, device (physical object) Ivelisse Lue Start: 10-06-2016 Colonoscopy Ivelisse Lue Comment on above: 2010 Arthroscopy of knee Ivelisse Yenni e Catheterization of left heart Ivelisse Lue Esophagogastroduodenoscopy K athy Lue Plan of Treatment Date Care Activity Detail Author Start: 09-01-2023 ambulatory Ambulatory Facility:[facility] Start: 08-19-2023 [facility] Start: 07-09-2022 [facility] Start: 07-08-2022 Hospital admission [facility] Start: 07-08-2022 Patient referral to dietitian [facility] Start: 02-05-2022 [facility] Start: 02-04-2022 [facility] Start: 02-04-2022 Hospital admission [facility] Start: 10-21-2021 STRESS NUC, Provider: SAL HHVI NUCLEAR 01,[id number], Status: Pen, Time: 7:30 AM STRESS NUC, Provider: [facility] NUCLEAR 01,[id number], Status: Pen, Time: 7:30 AM [facility] [facility] DO Work Phone: Start: 10-15-2021 [facility] Work Phone: Start: 10-15-2021 OR Percutaneous EVAR AAA (Not Applicable) OR Percutaneous EVAR AAA (Not Applicable) [facility] Start: 10-15-2021 End: 10-15-2021 Evaluation and management of inpatient AAA (abdominal aortic aneurysm) [facility] Start: 10-13-2021 End: 10-13-2021 Patient encounter procedure Departed Clinical [facility] Nbx-Ypn-Tvvmxnnb Testing Patient Education [facility] Work Phone: Patient referral [facility] Work Phone: US Gallbladder [facility] Heart limited [facility] and abdo sebastian aorta [facility].doppler Carotid arteries - bilateral [facility] Immunizations Immunization Date Immunization Notes Care Provider David holloway 06-13-2020 [employer]ney [employer] Rodney COVID 19 Vaccine [facility] Comment on above: Note: Patient tolera shyann well. No signs or symptoms of adverse reactions. Patient waited a minimum of 15 minutes. NEGATED: Highlighted row has not occurred!01-13-2023 influenza virus vaccine, unspecified formulation Ivelisse Hassan [facility] Payers Date Payer Category Payer Self-pay [id number] 2020 Unknown [id number] 1959 Self-pay [id number] 1959 Unknown [id number] 1959 Unknown [id number] 1959 Unknown [id number] 1942 Unknown [id number] 2.16.84 0.1.727852.3.579.2.593 1942 Unknown [id number] 2.16.84 0.1.423057.3.579.2.593 1942 Unknown [id number] 2.16.84 0.1.615183.3.579.2.593 1942 Unknown [id number] 2.16.84 0.1.010470.3.579.2.593 1942 Unknown [id number] 2.16.84 0.1.259729.3.579.2.593 1942 Unknown [id number] 2.16.84 0.1.973886.3.579.2.593 1942 Unknown [id number] 2.16.84 0.1.736640.3.579.2.593 1942 Unknown [id number] 2.16.8 40.1.656403.3.579.2.727 1942 Unknown [id number] 2.16.8 40.1.101259.3.579.2.727 1942 Unknown [id number] 2.16.8 40.1.763436.3.579.2.727 1942 Unknown [id number] 2.16.8 40.1.640147.3.579.2.727 1942 Unknown [id number] 2.16.8 40.1.119582.3.579.2.727 1942 Unknown [id number] 2.16.8 40.1.492021.3.579.2.727 1942 Unknown [id number] 2.16.8 40.1.964269.3.579.2.727 1942 Unknown [id number] 2.16.8 40.1.201855.3.579.2.727 1942 Unknown [id number] 2.16.8 40.1.284334.3.579.2.727 1942 Unknown [id number] 2.16.84 0.1.167099.3.579.2.1259 Unknown Unknown [facility] [id number] Unknown [id number] 2.16.84 0.1.937223.3.579.2.593 Unknown [id number] 2.16.8 40.1.019983.3.579.2.531 Unknown [id number] 2.16.8 40.1.919216.3.579.2.531 Unknown [id number] 2.16.8 40.1.830944.3.579.2.531 Social History Date Type Detail Facility Tobacco smoking status Unknown i f ever smoked [facility] Work Phone: Start: 03-08-1955 End: 03-08-1996 Sex Assigned At [facility] Start: 10-15-2021 End: 08-19-2023 Tobacco smoking status NCIS Ex-smoker (finding) [facility] Start: 1940 Sex Assigned At Male [facility] Tobacco smoking status Never [facility] [place] Medical Equipment Procedure Code Equipment Code Equipment Origin al Text Equipment Identifier Dates Transcarotid artery revascularization (TCAR) Bare-metal carotid artery stent ()[id number] FDA Start: 07-08-2022 Transcarotid artery revascularization (TCAR) Bare-metal carotid artery stent ()[id number] FDA Start: 07-08-2022 Percutaneous endovascular repair of abdominal aortic aneurysm (AAA) Abdominal aorta endovascular stent-graft ()[id number] FDA Start: 02-04-2022 Percutaneous endovascular repair of abdominal aortic aneurysm (AAA) Abdominal aorta endovascular stent-graft ()[id number] FDA Start: 02-04-2022 Percutaneous endovascular repair of abdominal aortic aneurysm (AAA) Abdominal aorta endovascular stent-graft ()[id number] FDA Start: 02-04-2022 Goals Date Patient Goal Desired Activity /State Functional Status Date Assessment Result Facility 05-04-2023 Functional Status N/A [facility] 01-13-2023 Functional Status N/A [facility] 10-07-2022 Functional Status N/A [facility] 07-09-2022 Functional status Patient is Pro gressing Toward Baseline [facility] Work Phone: 06-24-2022 Functional Status N/A [facility] 04-15-2022 Functional Status N/A [facility] 02-25-2022 Functional Status N/A [facility] 02-18-2022 Functional Status N/A [facility] 02-11-2022 Functional Status N/A [facility] 02-05-2022 Functional status Patient at Baseline [facility] Work Phone: 10-15-2021 Functional status Patient at Baseline [facility] Work Phone: Mental Status Date Assessment Result Facility 07-09-2022 Cognitive function Cognitive Sta tus Patient is Progressing Toward Baseline [facility] Work Phone: 02-05-2022 Cognitive function Cognitive Sta tus Patient at Baseline [facility] Work Phone: 10-15-2021 Cognitive function Cognitive Sta tus Patient at Baseline [facility] Work Phone: Clinical Notes 04-18-2020 to 09-23-2023 Note Date & Type Note Facility 09-23-2023 Note Patient: Chico dos santosneeraj Procedure Information Date/Time: 09/24/23 0730 Procedures: Robot-Assisted Cholecystectomy with Intraoperative Ultrasound and Possible Liver Resection, Lymph Node Dissection, Bile Duct Resection and Bilioenteric Anastomosis - [place] U/S and Social[employer]enderi BK Drop-In Probe#[id number] Location: [facility] OPERATING ROOM 13 / [facility] Operating Room Surgeons: Amber Bryant MD Relevant Problems Cardio (+) AAA (abdominal aortic aneurysm) (CMS/HCC) (+) ASHD (arteriosclerotic heart disease) (+) Left carotid stenosis (+) Nonrheumatic aortic (valve) stenosis (+) Peripheral artery disease (CMS/HCC) (+) Primary hypertension /Renal (+) Kidney stones Clinical information reviewed: Tobacco Allergies Meds Med Hx Surg Hx Fam Hx Soc Hx Physical Exam Anesthesia Plan Additional Equipment Requests [facility] 08-18-2023 Note HEPATOBILIARY & PANC REAS SURGERY CONSULTATION NOTE Reason for Consult: Consult for gallbladder mass PCP: Shailesh Dunham MD Chief Complaint: Gallbladder mass History of Present Illness: Chico Baker is a 83 y.o. male who presents [...] Smokeless tobacco: Never (more content not included)... [facility] 08-13-2023 Note The patient is a [...] fall with right femoral ORIF while playing [email or web address] Abdominal aortic stent Left carotid artery stent [...] of a gallbladder malignancy. Will send to [place] to see if the actual film from [...] bed and lymph node evaluation as well. [facility] 05-04-2023 Hospital Discharge instructions Patient Education 05/04/2023 11:46:04 Dietary Guidelines [...] include: ?8 oz (237 mL) of milk, jkbauwv-ylthlnnoskbm-dedkd milk, and calcium-fortifiedfruit juice. Calcium-fortified means that [...] ?Spinach (cooked), rhubarb, beets, sweet potatoes, and Ecuadorean chard. ?Peanuts. ?Potato chips, palauan fries, and baked potatoes with skin on. ?Nuts and nut products. ?Chocolate. If you regularly take a diuretic medicine, make sure to eat at least 1 or 2 servings of fruits or vegetables that are high in potassium each day. These include: ?Avocado. ?Banana. ?Foster, prune, carrot, or tomato juice. ?Baked potato. [...] magnesium, fish oil, or vitamin B6. Take cswk-fnx-cjupjxc and prescription medicines only as told by [...] Casseroles. Pizza. Lasagna. Frozen meals. Potato chips. Chinese fries. The items listed above may not [...] provider. Document Revised: 06/04/2022 Document Reviewed: 06/04/2022 [employer] Patient Education 2022 [employer]. Follow Up Care 04/29/2023 08:42:17 With:oM LEIJA, AKILAH Smith, URO Address: When:Within 4 Month(s) Comments:monica/KEDAR [facility] 04-14-2023 Evaluation note Encounter Date Diagnosis Assessment [...] this time and surgery could be scheduled. [employer] Other 02-07-2024 Evaluation note* Encounter Date Diagnosis [...] control to proceed with his next procedure. [employer] Other 02-01-2024 Evaluation note* Encounter Date Diagnosis Assessment Notes Treatment Notes Treatment Clinical Notes Apr, Primary hypertension (ICD-10 - I10) [employer] Other 01-29-2024 Evaluation note* Encounter Date Diagnosis Assessment Notes Treatment Notes Treatment Clinical Notes Mar, Primary hypertension (ICD-10 - I10) [facility] Other 01-28-2024 Evaluation note* Encounter Date Diagnosis Assessment Notes Treatment Notes Treatment Clinical Notes Mar, Primary hypertension (ICD-10 - I10) [facility] Other 01-22-2024 Evaluation note* Encounter Date Diagnosis [...] has resolved INstructed on increasing fluids [employer] Other 11-08-2023 Hospital Discharge instructions Patient Education [...] urethra. Follow these instructions at home: Take psyp-cno-vymcrki and prescription medicines only as told by [...] provider. Document Revised: 09/10/2021 Document Reviewed: 09/10/2021 [employer] Patient Education 2022 [employer]. Follow Up Care 10/07/2022 09:26:45 With:Mo LEIJA, AKILAH Smith, URO Address: When: Unknown [facility] 09-05-2023 Evaluation note* Encounter Date Diagnosis Assessment [...] in the office with a CT scan. [employer] Other 08-02-2023 Hospital Discharge instructions Patient Education [...] urethra. Follow these instructions at home: Take wacq-tkp-ngkhghj and prescription medicines only as told by [...] provider. Document Revised: 09/10/2021 Document Reviewed: 09/10/2021 [employer] Patient Education 2022 [employer]. Follow Up Care 07/28/2022 10:29:31 With:Mo LEIJA, AKILAH Smith, URO Address: When:Within 3 Day(s) [facility] [employer] 05-30-2023 Evaluation note* Encounter Date Diagnosis Assessment [...] a couple of weeks. These have resolved. [employer] Other 05-04-2023 Discharge summary Author Raul Quan [facility] July 09, 2022 12:08pm Note Date/Time July 09, 2022 8:07am [facility] [address] [place], [place] [id number] Discharge Summary Signed Patient: Chico Baker MR#: [id number] : 1940 Acct:[id number] Age/Sex: 82 / M Adm Date: 3 Loc: 4C Room: 5P5169-[address]: Raul Quan MD Copies to: [...] Room Air 8 07/09/22 05:00 07/09/22 07:00 05/04/23 07:00 07/09/22 07:00 07/09/22 07:00 07/09/22 07:00 07/08/22 10:52 Narrative: 82-year-old male, no acute distress. He is resting comfortably in his bed this morning upon my arrival. Vital signs on the bedside monitor are stable. He hasno shortness of breath with conversation today. No facial asymmetry, tongue is midline, neck is supple, no JVD. Bilateral gallery host strength is equal. He has a little [...] <Electronically signed by MD Raul Quan> 07/09/22 1208 [facility] Work Phone: 1(714) 561-874705-03-2023 History and physical note Author Raul Quan [facility] July 08, 2022 11:06am Note Date/Time July 08, 2022 11:06a m [facility] [address] [place] [address] Vascular Surgery H&P Signed Patient: Chico Baker MR#: [id number] : 1940 Acct:[id number] Age/Sex: 82 / M Adm Date: 3 Loc: Room: [address] [place] [address] Type: ADM IN Attending Dr: Raul Quan [...] by MD Raul Quan> 07/08/22 1106 [facility] Work Phone: 1(500) 471-540804-19-2023 Hospital Discharge instructions Patient Education 06/24/2022 09:42:41 [...] Follow these instructions at home: Medicines Take scfe-idx-etyqpsd and prescription medicines only as told by [...] or the blood stops without treatment. Take jnsx-ogp-hqbfrhm and prescription medicines only as told by your health care provider. Drink enough fluid to keep your urine pale yellow. This information is not intended to replace advice given to you by your health care provider. Make sure you discuss any questions you have with your health care provider. Document Revised: 10/23/2020 Document Reviewed: 10/23/2020 [employer] Patient Education 2022 [employer]. 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 Walk daily Inspect feet daily for cuts [employer] Other 03-14-2023 Evaluation note* Encounter Date Diagnosis [...] left TCAR procedure once he returns from [place] at the end of June beginning of [...] agree with plan, and denies any questions. [employer] Other 03-08-2023 Evaluation note* Encounter Date Diagnosis Assessment Notes Treatment Notes Treatment Clinical Notes May, Carotid stenosis, bilateral (ICD-10 - I65.23) CTA: < 50% right, 80% left [facility] Other 03-08-2023 Evaluation note* Encounter Date Diagnosis Assessment Notes Treatment Notes Treatment Clinical Notes May, Carotid stenosis, bilateral (ICD-10 - I65.23) CTA: < 50% right, 70% left - 05/2022 [employer] Other 02-08-2023 Hospital Discharge instructions Patient Education [...] prostate. Follow these instructions at home: Take iiom-jiq-rciuswl and prescription medicines only as told by [...] 02/19/2001 Document Revised: 05/07/2018 Document Reviewed: 11/12/2016 [employer] Patient Education [employer]. Follow Up Care 02/11/2022 10:55:52 With:Mo LEIJA, AKILAH Smith, URO Address: When: Unknown [facility] 02-07-2023 Evaluation note* Encounter Date Diagnosis Assessment Notes Treatment Notes Treatment Clinical Notes Apr, Primary hypertension (ICD-10 - I10) [facility] Other 01-03-2023 Evaluation note* Encounter Date Diagnosis [...] to perform simultaneously to minimize contrast exposure. [employer] Other 12-21-2022 Hospital Discharge instructions Patient Education 02/25/2022 12:02:33 Rash, Adult, Sehh-sv-Osou Rash, Adult A rash is a change [...] with your condition: Medicine Take or apply iwup-has-rjquxwf and prescription medicines only as told by [...] the rash from spreading. Take or apply mtka-lnc-wdtjlky and prescription medicines only as told by [...] 08/10/2008 Document Revised: 06/16/2019 Document Reviewed: 09/26/2018 [employer] Patient Education 2019 [employer] Follow Up Care 02/18/2022 14:33:21 With:Ivelisse Hassan Address:Unknown When: Unknown Comments:Appointment has already been scheduled [facility] 12-14-2022 Hospital Discharge instructions Patient Education 02/18/2022 [...] including vitamins, herbs, eye drops, creams, and yuzh-isp-oojkbdr medicines. Any problems you or family members [...] provider tells you to take them. Taking skqy-lno-wjlarvg medicines, vitamins, herbs, and supplements. Eating and [...] 02/22/2006 Document Revised: 06/14/2019 Document Reviewed: 11/23/2018 [employer] Patient Education 2020 [employer] Follow Up Care 02/17/2022 16:33:06 With:ARASH BUCHANAN, IVA Ellis, URL Address: [address] [place] [address] [phone] When:02/25/2022 [facility] 12-07-2022 Hospital Discharge instructions Patient Education [...] prostate. Follow these instructions at home: Take zfeh-kbk-yelqwbp and prescription medicines only as told by [...] 02/19/2001 Document Revised: 05/07/2018 Document Reviewed: 11/12/2016 [employer] Patient Education 2019 [employer]. Follow Up Care 01/28/2021 10:15:04 With:Mo LEIJA, AKILAH Smith, URO Address: When:6 weeks [facility] 12-01-2022 Discharge summary Author Raul Quan [facility] February 05, 2022 10:08am Note Date/Time February 05, 2022 7 :52am [facility] [address] [place] [address] Discharge Summary Signed Patient: Chico Baker MR#: [id number] : 1940 Acct:[id number] Age/Sex: 81 / M Adm Date: 2 Loc: N Room: [address] [place] [address]: Raul Quan MD Copies to: DO Tamar Frias, JEWELRY ENAMELER Raul Quan MD~ Providers Date of Discharge: 02/05/22 [...] % (Auto) 69.5, Lymph % (Auto) 14.4, Swisher % (Auto) 14.8, Eos % (Auto) 0.7, Baso % (Auto) 0.6, Nucleat RBC Rel Count 0.1, Neut # (Auto) 7.1, Lymph # (Auto) 1.5, Swisher # (Auto) 1.5 H, Eos # (Auto) 0.1, Baso # (Auto) 0.1 02/04/22 08:25: Corrected WBC 9.3, Uncorrected WBC Count 9.3, RBC 4.10, Hgb 12.4L, Hct 37.5 L, MCV 91.5, MCH 30.2, MCHC 33.0, RDW 13.7, Plt Count 198, MPV 8.5, Neut % (Auto) 70.1, Lymph % (Auto) 16.4, Swisher % (Auto) 12.0, Eos % (Auto) 0.9, Baso % (Auto) 0.6, Nucleat RBC Rel Count 0.0, Neut # (Auto) 6.5, Lymph # (Auto) 1.5, Swisher # (Auto) 1.1 H, Eos # (Auto) [...] signed by MD Raul Quan> 02/05/22 1008 [facility] Work Phone: 1(617) 548-775811-15-2022 Evaluation note* Encounter Date Diagnosis Assessment Notes [...] we will evaluate him for left TCAR. [facility] Other 10-31-2022 Evaluation note* Encounter Date Diagnosis [...] complete and CT confirms candidacy for TCAR [facility] Other 09-19-2022 Evaluation note* Encounter Date Diagnosis Assessment Notes Treatment Notes Treatment Clinical Notes Nov, AAA (abdominal aortic aneurysm) without rupture (ICD-10 - I71.4) This patient is still recovering from his recent orthopedic procedures. He continues with physical therapy and although he is getting stronger, he remains quite fatigued and weak yet. He has an upcoming appointment with his prosthetic assistant for preoperative risk assessment and stratification this next week. We will give him a few more weeks of physical therapy and have him back in a month or so to reschedule his AAA. He did tell me that he had some abdominal pain while in the shelter facility and was taken to the [facility] where a CT of the abdomen was obtained. We will get these studies pushed over for review and comparison. He denies any abdominal pain today and tells me his appetite is pretty good. He knows to call us in the meantime with any issues. [employer] Other 07-26-2022 Evaluation note* Encounter Date Diagnosis [...] agrees with this plan, denies any questions. [facility] Other 07-11-2022 Evaluation note* Encounter Date Diagnosis [...] agrees with this plan, and denies questions. MePlease Other 07-11-2022 Evaluation note* Encounter Date Diagnosis [...] agrees with this plan, and denies questions. MePlease Other 05-23-2022 Evaluation note* Encounter Date Diagnosis [...] returns we will get baseline ankle-brachial indices. MePlease Other 10-06-2021 NoteHNO ID: [id number] Author: Power Catherine MD Service: ? Author Type: Physician Type: Progress Notes Filed: 12/11/2020 11:17 AM Note Text: [facility] OUTPATIENT VISIT DATE December 11, 2020 OUTPATIENT VISIT TYPE EST PRIMARY CARE PHYSICIAN: Shailesh Dunham (Jere) [address] [place] [address] REFERRING PHYSICIAN Power Catherine [address] [facility] [id number] CHIEF COMPLAINT: Patient presents with: Established Patient [...] up. Continue statin therapy. ? Power Catherine, [facility]02-11-2021 NotePatient Outreach (COVAMN) CHICO BAKER Abad ([id number]) 1940 M Date Time Provider Department 04/18/20 KIMBERLEY REHMAN During your visit today, we recorded the following information about you: Allergies As of Date: 04/18/2020 Noted Allergy Reaction SHALINI INHIBITORS 05/09/2015 16 - Unknown GADOLINIUM-CONTAINING CONTRAST ME*05/09/2015 16 - Unknown TETANUS VACCINES AND TOXOID 05/16/2015 16 - Unknown Date Reviewed: 10/18/2017 Reviewed by: Power Catherine - Fully Assessed Order(s):SARS-COVID VACCINE 1ST DOSE APPT [[id number]] Order #: [id number] FUTURE Prescriptions as of 04/18/2020 Sig: ASPIRIN [...] (None) Encounter Status:Closed by ISIDORO JOHNSON on 04/22/20[facility] Evaluation + Plan note Future Appointments Appointment Date:04/15/2022 08:45:00 AM Scheduled Provider:Ivelisse Hassan MD Location:[facility] Appointment Type:URO Office Visit [facility] evaluation + Plan note Future Appointments Appointment Date:04/15/2022 08:45:00 AM Scheduled Provider:Ivelisse Hassan MD Location:[facility] Appointment Type:URO Office Visit Diagnostic Tests Pending * [facility]rine [facility] App[facility]ments Appointment Date:02/25/2022 11:00:00 AM Scheduled Provider:IVA ANTOINE PA-C Location:[facility] Appointment Type:URO Office Visit Appointment Date:04/15/2022 08:45:00 AM Scheduled Provider:Ivelisse Hassan MD Location:[facility] Appointment Type:URO Office Visit [facility] evaluation + Plan note Future Appointments Appointment Date:06/24/2022 09:30:00 AM Scheduled Provider:Ivelisse Hassan MD Location:[facility] Appointment Type:URO Office Visit [facility] evaluation + Plan note Future Appointments Appointment Date:01/13/2023 09:00:00 AM Scheduled Provider:Ivelisse Hassan MD Location:[facility] Appointment Type:URO Office Visit [facility] evaluation + Plan note Future Appointments Appointment Date:09/01/2023 11:00:00 AM Scheduled Provider:Ivelisse Hassan MD Location:[facility] Appointment Type:URO Office Visit [facility] Evaluation + Plan note Future Appointments Appointment Date:09/01/2023 11:00:00 AM Scheduled Provider:Ivelisse Hassan MD Location:[facility] Appointment Type:URO Office Visit Diagnostic Tests Pending * Calculi Analysis Urinary [facility] Diagnosis Onset Date Resolution Status AAA (abdominal aortic aneurysm) acute [facility] Work Phone: evaluation noteNo assessment information available [facility] Work Phone: [email or web address] noteNo InformationNosamaritan hospital [employer] Other evaluation note* Diagnosis Onset Date Resolution Status Left carotid stenosis acute [facility] Work Phone: Evaluation note* Diagnosis Onset Date Resolution Status Hypercholesterolemia acute IFG (impaired fasting glucose) acute Kidney stones acute Nonrheumatic aortic (valve) stenosis acute Peripheral artery disease [place] Primary hypertension acute [facility] Work Phone: evaluation note* Diagnosis Onset Date Resolution Status Gallbladder polyp acute Hypercholesterolemia acute IFG (impaired fasting glucose) acute Nonrheumatic aortic (valve) stenosis acute Paget's disease of bony pelvis acute Peripheral artery disease [place] Primary hypertension acute [facility] Work Phone: Evaluation note* Diagnosis Onset Date Resolution Status Gallbladder polyp acute Hypercholesterolemia acute IFG (impaired fasting glucose) acute Nonrheumatic aortic (valve) stenosis acute Paget's disease of bony pelvis acute Peripheral artery disease [place] Primary hypertension acute AAA (abdominal aortic aneurysm) without rupture acute [facility] Work Phone: Evaluation note* Diagnosis Onset Date Resolution Status Gallbladder polyp acute Hypercholesterolemia acute IFG (impaired fasting glucose) acute Nonrheumatic aortic (valve) stenosis acute Paget's disease of bony pelvis acute Peripheral artery disease [place] Primary hypertension acute AAA (abdominal aortic aneurysm) without rupture acute AAA (abdominal aortic aneurysm) without rupture acute Benign prostatic hyperplasia with lower urinary tract symptoms acute Gallbladder polyp acute Hypercholesterolemia acute Mass of gallbladder acute Nonrheumatic aortic (valve) stenosis acute Paget's disease of bony pelvis acute Peripheral artery disease [place] Primary hypertension acute [facility] Work Phone: Evaluation note* Diagnosis Onset Date Resolution Status Hypercholesterolemia acute IFG (impaired fasting glucose) acute Nonrheumatic aortic (valve) stenosis acute Paget's disease of bony pelvis acute Peripheral artery disease [place] Primary hypertension acute AAA (abdominal aortic aneurysm) without rupture acute AAA (abdominal aortic aneurysm) without rupture acute Benign prostatic hyperplasia with lower urinary tract symptoms acute Hypercholesterolemia acute Mass of gallbladder acute Nonrheumatic aortic (valve) stenosis acute Paget's disease of bony pelvis acute Peripheral artery disease [place] Primary hypertension acute AAA (abdominal aortic aneurysm) without rupture acute Hypercholesterolemia acute IFG (impaired fasting glucose) acute Mass of gallbladder acute Nonrheumatic aortic (valve) stenosis acute Peripheral artery disease [facility] Primary hypertension acute Preop exam for internal medicine noneactive [facility] Work Phone: Evaluation note* Diagnosis Onset Date Resolution Status Hypercholesterolemia acute IFG (impaired fasting glucose) acute Nonrheumatic aortic (valve) stenosis acute Paget's disease of bony pelvis acute Peripheral artery disease [place] Primary hypertension acute AAA (abdominal aortic aneurysm) without rupture acute AAA (abdominal aortic aneurysm) without rupture acute Benign prostatic hyperplasia with lower urinary tract symptoms acute Hypercholesterolemia acute Mass of gallbladder acute Nonrheumatic aortic (valve) stenosis acute Paget's disease of bony pelvis acute Peripheral artery disease [place] Primary hypertension acute AAA (abdominal aortic aneurysm) without rupture acute Hypercholesterolemia acute IFG (impaired fasting glucose) acute Mass of gallbladder acute Nonrheumatic aortic (valve) stenosis acute Peripheral artery disease [place] Primary hypertension acute Preop exam for internal medicine noneactive AAA (abdominal aortic aneurysm) without rupture acute Benign prostatic hyperplasia with lower urinary tract symptoms acute Hypercholesterolemia acute Mass of gallbladder acute Nonrheumatic aortic (valve) stenosis acute Paget's disease of bony pelvis acute Peripheral artery disease [place] Primary hypertension acute [facility] Work Phone: Hisrlve general Narrative - Reported* Type Description Date Medical History hypercholesterolemia Medical History abdominal aortic aneurysm Medical History Carotid stenosis Medical History PAD Surgical History TURP Surgical History knee arthroscopy LEFT Surgical History Vein stripping Hospitalization History See Above MePlease Other Hisfatj general Narrative - Reported* Type Description Date Medical History hypercholesterolemia Medical History abdominal aortic aneurysm Medical History Carotid stenosis Medical History PAD Surgical History TURP Surgical History knee arthroscopy LEFT Surgical History Vein stripping Surgical History RT FEMUR FX WITH ARABELLA PLACEMENT Hospitalization History See Above MePlease Other Hismqcm general Narrative - Reported* Type Description Date Medical History hypercholesterolemia Medical History abdominal aortic aneurysm Medical History Carotid stenosis Medical History PAD Medical History [ ] Surgical History TURP Surgical History knee arthroscopy LEFT Surgical History Vein stripping Surgical History RT FEMUR FX WITH ARABELLA PLACEMENT Surgical History EVAR 02/04/2022 Surgical History [ ] Hospitalization History See Above MePlease Other [employer] general Narrative - Reported* Type Description Date [...] History COLONOSCOPY 2019 Hospitalization History See Above MePlease Other [employer] general Narrative - Reported* Type Description Date [...] Left TCAR 07/2022 Hospitalization History See Above MePlease Other Hisxkcb general Narrative - Reported* Type Description Date [...] Left TCAR 07/2022 Hospitalization History See Above MePlease Other [employer] general Narrative - Reported* Type Description Date [...] left ESWL 03/2023 Hospitalization History See Above MePlease Other Hospital course Narrative No data available for this section [facility] Discharge instructions No data available for this section [facility] Author Raul Quan [facility] October 15, 2021 4:31pm Note Date/Time October 15, 2021 4: 31pm [facility] [address] [place] [address] Vascular Surgery Progress Note Signed Patient: Chico Baker MR#: [id number] : 1940 Acct:[id number] Age/Sex: 81 / M Adm Date: 2 Loc: 4N Room: 6X7885-1 Type: DIS IN Attending Dr: Raul Quan [...] aneurysm, without rupture Status: Acute Documented By: Rual Quan MD 10/15/21 162 9 Signed By: <Electronically signed by MD Raul Quan> 10/15/21 1631 [facility] Work Phone: Progress note Author Pb Zurita [facility] October 16, 2021 5:41am Note Date/Time October 16, 2021 5: 41am [facility] [address] [place] [address] Anesthesia Progress Note Signed Patient: Chico Baker MR#: [id number] : 1940 Acct:[id number] Age/Sex: 81 / M Adm Date: 2 Loc: 4N Room: 8R2497-5 Type: DIS IN Attending Dr: Raul Quan MD Copies to: ~ Anesthesia Progress Note Narrative Narrative: Patient for EVAR today for 5+ centimeter infrarenal AAA. Past medical history hypertension, moderate aortic stenosis, and coronary artery disease. Review of medical records and discussion with indicates patient had stress test 2008 positive for infarct and ischemia at which time he was referred to [facility] and had cardiac cath. Medical management was apparently chosen. No interval events,testing, or intervention. Patient has been asymptomatic but sedentary and poor historian. Advised patient and family to see prosthetic assistant for consideration of preop stress testing. Discussed with surgeon Documented By: Pb Zurita MD 10/16/21 0535 Signed By: <Electronically signed by Pb Zurita MD> 10/16/21 0541 [facility] Work Phone: Progress note No data available for this section [facility] Reason for Referral No Reason for [...] Documentation i71.4 BP check S/P EVAR; [facility] Reason for Visit Gallbladder polyp Hypercholesterolemia IFG (impaired fasting glucose) 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 Peripheral artery disease Primary hypertension Chief Complaint i71.4 BP check S/P EVAR; [facility] Nonrheumatic aortic stenosis Reason for Visit Gallbladder polyp Hypercholesterolemia IFG (impaired fasting glucose) 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 Peripheral artery disease Primary hypertension AAA (abdominal aortic aneurysm) without rupture Chief Complaint i71.4 BP check S/P EVAR; CTA [facility] Nonrheumatic aortic stenosis Reason for Visit Gallbladder [...] Complaint i71.4 BP check S/P EVAR; CTA [facility] Nonrheumatic aortic stenosis sugical clearance, gall bladder [...] Complaint i71.4 BP check S/P EVAR; CTA [facility] Nonrheumatic aortic stenosis sugical clearance, gall bladder [...] Complaint i71.4 BP check S/P EVAR; CTA [facility] Nonrheumatic aortic stenosis sugical clearance, gall bladder [...] and content) DATE CREATED AUTHOR 04/02/2021 [facility] DATE CREATED AUTHOR AUTHOR'S ORGANIZ ATION 10/28/2021 [facility] DATE CREATED AUTHOR AUTHOR'S ORGANIZ ATION 04/14/2022 [facility] DATE CREATED AUTHOR AUTHOR'S ORGANIZ ATION 05/13/2023 [place] [facility] DATE CREATED AUTHOR AUTHOR'S ORGANIZ ATION 07/29/2023 [facility] EPIC DATE CREATED AUTHOR AUTHOR'S ORGANIZ ATION 09/08/2023 [facility] DATE CREATED AUTHOR AUTHOR'S ORGANIZ ATION 09/27/2023 [facility] REASON FOR VISIT (unrecogniz ed section and content) REF BY DR DUNHAM FOR AAA, PAD AND CAROTID STENOSIS, Needs a new vascular surgeon7 WK FOLLOW UP; SHYANNE'S, ABDOMINAL, CAROTID WK FOLLOW UP; SHYANNE'S, ABDOMINAL, CAROTID 08/27/21FOLLOW UP AFTER [facility] 09/18/21-AAAAAA see pt post femur fx rt and clavicle rt6 WK FOLLOW UP, Follow-up abdominal aortic aneurysmVASC 3 MONTH FOLLOW UP; CAROTID DUPLEX 11A, Abdominal aortic aneurysm3 week f/u EVAR, Follow-up after percutaneous aneurysm repairNo InformationNo InformationNo InformationNo InformationNo Information2 MONTH FOLLOW UP; CTA [facility]/ Follow UpNo InformationNo InformationNo Information3 [...] Shailesh Dunham DO Primary Care Provider Active Tamar Perea NP-Fernando Attending Provider Active Team Status: Inactive Member Role Status Dates Shailesh Dunham DO Attending Provider Active Sta rt: March 29, 2023 End: March 29, 2023 Team Status: Active Member Role Status Dates Sheri Christiansen MD Network Operations Center Technician Active Shailesh Dunham DO Primary Care Provider Active Team Status: Inactive Member Role Status Dates Shailesh Dunham DO Primary Care Provide r, Referring [...] BE BASED ON THE PRIMARY CLINICAL RECORDS. [employer] [facility]. provides no warranty or guarantee of the accuracy or completeness of information in this document.
== END 2023-09-28 09:53 | disposition home or self-care (01) ==
LOC: US 09:52
PROVIDERS: PCP Internal Medicine
DX: D49.0 Neoplasm of unspecified behavior of digestive system (principal); K80.20 Calculus of gallbladder without cholecystitis without obstruction; N20.0 Calculus of kidney
CPT/HCPCS: 76705

== ENCOUNTER 2023-10-14 09:51 | Inpatient (IN) | payer MEDICARE, OTHER, SELFPAY ==
[2023-10-14] VITALS (105 sets, daily range): BP systolic 102–148; BP diastolic 56–97; PULSE 64–147; TEMP 36.4–37.2; O2SAT 95–99; BMI 22.4; BMI 22.5
--- OUTSIDE RECORDS SUMMARY | 2023-10-14 10:09 | XMS_ITS | CCD ---
Author Organization [facility] Inform ion [facility] Care Team Providers Care Curriculum Consultant Name Role Phone Orlando Dotson Fernando Unavailable Raul Quan Unavailable Tamar Perea Unavailable Shailesh Dunham Unavailable DO Shailesh Dunham Primary Care Provider [phone] MD Raul Quan Attending Provider [phone] KB Perea Attending Provider MD Raul Quan Admit Provider [phone] DO Shailesh Dunham Primary Care Provider KB Perea Attending Provider MD Raul Quan Admit Provider [phone] MD Raul Quan Attending Provider SHAILESH DUNHAM Primary Care Physician [phone] [place] .IVELISSE Admitting Unavailable LUCaleb .IVELISSE Attending [...] Care Provider MD Raul Quan Attending Provider [phone] MD Raul Quan Admit Provider DO Shailesh [...] Lue, Ivelisse M. Attending Unavailable DO Shailesh Dunhma Primary Care Provider [phone] MD Raul Quan Attending Provider CLIFTON CORREA [...] Christiansen Admitting Unavailable Sheri Christiansen Attending Unavailable AMBER BRYANT Referring Unavailable MARIA EUGENIA BERRY Attending Unavailable AMBER BRYANT Attending Unavailable AMBER BRYANT Referring Unavailable AMBER BRYANT Admitting Unavailable AMBER BRYANT Attending Unavailable AMBER BRYANT Attending Unavailable MARIA EUGENIA BERRY Referring Unavailable AMBER BRYANT Referring Unavailable MARIA EUGENIA BERRY Referring Unavailable Allergies Allergy Classification Reported Allergen(s) Allergy Type Date of Onset Reaction(s) Facility Angiotensin Converting Enzyme (SHALINI) Inhibitors (3 sources) Angiotensin Converting Enzyme (Shalini) Inhibitors; Translations: [SHALINI Inhibitors] Drug Allergy 08-27-19 24 [facility] [place] Tetanus immune globulin (3 sources) Tetanus immune globulin; Translations: [tetanus immune globulin] Drug Allergy 08-27-19 Unknown Reaction [facility] (5 sources) Angiotensin Converting Enzyme (Shalini) Inhibitors Drug allergy Unknown [facility] Other (6 sources) Tetanus vaccine; Translations: [tetanus toxoid] Drug allergy Unknown [facility] Repository (20 sources) Angiotensin Converting Enzyme (Shalini) Inhibitors; Translations: [Angiotensin-conv erting enzyme inhibitor agent (substance)] Allergy to substance 05-09-19 16 [facility] (8 sources) Contrast media Allergy to substance 10-07-19 [facility] (15 sources) Tetanus immune globulin; Translations: [TETANUS IMMUNE GLOBULIN] Drug Allergy 02-24-20 19 Unknown Reaction [facility] (20 sources) Angiotensin-conve rting enzyme inhibitor agent Drug allergy Unknown [facility] Other (2 sources) Tetanus toxoid specific immunoglobulin E Drug allergy Unknown [facility] Other (12 sources) Contrast media; Translations: [Contrast Dye] Allergy to substance unknown [facility] (13 sources) Iodine; Translations: [iodine] Drug Allergy 10-27-19 22 Unknown (qualifier value) [facility] (11 sources) tetanus toxoid vaccine, inactivated; Translations: [tetanus toxoid] Drug Allergy Unknown (qualifier value) [facility] (1 source) Iodine Drug Allergy [facility] Repository (1 source) Iodine (And Iodine Containting Drugs) Drug allergy (disorder) [facility] (1 source) Tetanus AND Diphtheria Tox,Adult Drug allergy (disorder) [facility] (20 sources) Tetanus vaccine Drug allergy Unknown [facility] Other (13 sources) Iodinated Contrast Media; Translations: [Iodinated Contrast Media] Allergy to substance 10-27-19 22 [facility] (9 sources) tetanus toxoid, adsorbed; Translations: [tetanus toxoid, adsorbed] Allergy to substance 04-26-19 24 Unknown Reaction [facility] (1 source) GADOLINIUM-CONTAI MAYA CONTRAST MEDIA; Translations: [GADOLINIUM-CONTA INING CONTRAST MEDIA] Propensity to adverse reactions to drug (disorder) 05-09-19 16 [facility] Repository (1 source) TETANUS AND DIPHTHERIA TOXOIDS; Translations: [TETANUS AND DIPHTHERIA TOXOIDS] Propensity to adverse reactions to drug (disorder) 10-27-19 22 [facility] Repository (1 source) TETANUS VACCINES AND TOXOID; Translations: [TETANUS VACCINES AND TOXOID] Propensity to adverse reactions to drug (disorder) 05-16-19 16 [facility] Repository (1 source) ALLERGIES NOT ON FILE; Translations: [ALLERGIES NOT ON FILE] Propensity to adverse reactions (disorder) [facility] Repository Medications Current Medications Medication Drug Class(es) [...] 2019 1:00am April 26, 2023 6:54pm Isosorbide Doyline itrate Active isosorbide dinitrate 30 mg oral [...] Losartan Discontinued 5 0 MG PO Daily June 22, 2023 10:13am June 22, 2023 [...] # 30 tab(s), Refills(s) 6, Pharmacy: [facility]/pharmacy #[id number], 169, cm, 10/07/22 8:54:00 [...] 30 day(s), 60 tab(s), Refill(s) 0, [facility]/pharmacy #[id number], 169, cm, 02/11/22 8:44:00 [...] acid 7540 MG / polyethylene glycol 3350 25392 MG / potassium chloride 1200 MG / sodium ascorbate 49387 MG / sodium chloride 3200 MG Powder for Oral Solution) / 1 (polyethylene glycol 3350 071123 MG / potassium chloride 1000 MG / [...] take 2 tablets by mo [facility] three times daily calcium (as calcium citrate) [...] 2022 9:44am take 1 tablet by freddy every twelve [...] 22, 2023 12:15pm [facility] as needed oxyBUTYnin [...] 22, 2023 12:15pm take 1 capsule by mo [facility] every twenty-four hours Tamsulosin HCl 0.4 MG [...] Coronary arteriosclerosis; Translations: [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] Onset: 11-14-2021 [...] Neoplasms of unspecified nature or uncertain behavior (4 sources) Neoplasm of uncertain behavior of liver, gallbladder and bile ducts; Translations: [Neoplasm of unspecified behavior of digestive system] Onset: 08-11-2023 Episodic Nutritional deficiencies (20 sources) Vitamin D [...] and reflux uropathy] Onset: 05-04-2023 Episodic Other fractures (2 sources) Fracture of unspecified part of left clavicle, subsequent encounter for fracture with routine healing; Translations: [Fracture of unspecified part of left clavicle, subsequent encounter for fracture with routine healing] Onset: 10-06-2023 Episodic Other gastrointestinal disorders (18 sources) Diarrhea; [...] Episodic Other aftercare (1 source) 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; Translations: [OTH [facility] CURRENT DRUG THERAPY] Onset: 2 Episodic Other aftercare (1 source) manager intermediate (current) use of anticoagulants; Translations: [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 CURRNT USE ANTICOAGULANTS] Onset: 2 Episodic Other aftercare (1 source) long-term (current) use of aspirin; Translations: [FDC CURRENT USE OF ASPIRIN] Onset: 2 Episodic [...] Test Name Value Interpretation Reference Range Facility 30on 10-13-2023 30 Problem: Neurosensor y - Adult Goal: Achieves stable or improved neurological status Outcome: Adequate for Discharge Goal: Achieves maximal functionality and self care Outcome: Adequate for Discharge Problem: Pain - Adult Goal: Verbalizes/displays adequate comfort level or baseline comfort level Outcome: Adequate for Discharge Problem: Safety - Adult Goal: Free from fall injury Outcome: Adequate for Discharge Problem: Discharge Planning Goal: Discharge to home or other facility with appropriate resources Outcome: Adequate for Discharge Problem: Chronic Conditions and Co-morbidities Goal: Patient's chronic conditions and co-morbidity symptoms are monitored and maintained or improved Outcome: Adequate for Discharge The patient is Moderately Stable - Low risk of patient condition declining or worsening The patient's goals for the shift include sleep The clinical goals for the shift include VSS, safety Over the shift, the patient did not make progress toward the following goals. Barriers to progression include post-op monitoring. Recommendations to address these barriers include no heavy lifting and knowing s/s for infection. [facility] 30 Daily Case Managemen t Update Multidisciplinary rounds have been completed. Barriers to Discharge et per Progress Note/s: POD#1 CLD. From Home with plans to return home pending medical clearance. Diet: Dietary Orders (From admission, onward) Start Ordered 10/13/23 075 Special Kitchen Request Once Comments: 1 soft scrambled egg, apple cinnamon muffin, 1 glass of orange juice, 1 cup of black coffee, and apple sauce, please. Thank you! 10/13/23 0753 10/12/231847 Special Kitchen Request Once Comments: Please send patient a clear liquid tray. 10/12/231847 Physician Expected Discharge Date: 10/15/2023 Discharge Delays: PT Six Click Score: 14 OT Six Click Score: PT Recommendations: OT Recommendations: New Consults: [facility] CBCon 10-13-2023 Erythrocyte distribution width (RBC) [Ratio] 12.6 % Normal 11.5-15.0 [facility] Comment on above: Performed By: #### L [id number] #### [facility] [address] [place] [address] ERYTHROCYTE MEAN CORPUSCULAR HEMOGLOBIN CONCENTRATION (G/DL) BY AUTOMATED 33.0 g/dL Normal 32.0-35.0 [facility] Comment on above: Performed By: #### L [id number] #### [facility] ([facility]) [address] [place] [address] Hematocrit (Bld) [Volume fraction] 29.4 % Low 39.0-55.0 [facility] Comment on above: Performed By: #### L [id number] #### [facility] [address] [place] [address] Hemoglobin (Bld) [Mass/Vol] 9.7 g/dL Low 13.0-17.0 [facility] Comment on above: Performed By: #### L [id number] #### [facility] [address] [place] [address] MCH (RBC) [Entitic mass] 30.9 pg Normal 27.0-33.0 [facility] Comment on above: Performed By: #### L [id number] #### [facility] ([facility]) [address] [place] [address] MCV (RBC) [Entitic vol] 93.6 fL Normal 82.0-98.0 [facility] Comment on above: Performed By: #### L [id number] #### [facility] ([facility]) [address] [place] [address] PLATELETS (10*3/UL) IN BLOOD AUTOMATED COUNT 141 10*3/uL Low 150-400 [facility] Comment on above: Performed By: #### L [id number] #### [facility] ([facility]) [address] [place] [address] RBC (Bld) [#/Vol] 3.14 10*6/uL Low 4.20-5.70 [facility] Comment on above: Performed By: #### L [id number] #### [facility] ([facility]) [address] [place] [address] WBC (Bld) [#/Vol] 14.01 10*3/uL High 4.00-10.60 [facility] Comment on above: Performed By: #### L [id number] #### [facility] ([facility]) [address] [place] [address] COMPREHENSIVE METABOLIC PANE Santo 10-13-2023 Albumin [Mass/Vol] 3.4 g/dL Low 3.5-5.7 [facility] Comment on above: Performed By: #### L [id number] ####[facility] ([facility])[address] [place] [address] ALP [Catalytic activity/Vol] 89 U/L Normal 34-104 [facility] Comment on above: Performed By: #### L [id number] ####[facility] ([facility])[address] [place] [address] ALT [Catalytic activity/Vol] 52 U/L Normal 7-52 [facility] Comment on above: Performed By: #### L [id number] ####[facility] ([facility])[address] [place] [address] Anion gap [Moles/Vol] 12 mmol/L Normal 7-[address] [facility] Comment on above: Performed By: #### L [id number] ####[facility] ([facility])[address] [place] [address] AST [Catalytic activity/Vol] 60 U/L High 13-39 [facility] Comment on above: Performed By: #### L [id number] ####[facility] ([facility])[address] [place] [address] Bilirubin [Mass/Vol] 0.8 mg/dL Normal 0.3-1.0 [facility] Comment on above: Performed By: #### L [id number] ####[facility] [place] [address] Calcium [Mass/Vol] 8.3 mg/dL Low 8.6-10.3 [facility] Comment on above: Performed By: #### L [id number] ####[facility] [place] [address] Chloride [Moles/Vol] 104 mmol/L Normal 98-107 [facility] Comment on above: Performed By: #### L [id number] ####[facility] ([facility])[address] [place] [address] CO2 [Moles/Vol] 22 mmol/L Normal 21-31 [facility] Comment on above: Performed By: #### L [id number] ####[facility] ([facility])[address] [place] [address] Creatinine [Mass/Vol] 0.74 mg/dL Normal 0.70-1.[address] [facility] Comment on above: Performed By: #### L [id number] ####[facility] ([facility])[address] [place] [address] GLOMERULAR FILTRATION RATE ML/MIN/1.73 SQ M.PREDICTED 91.0 mL/min/1.73m*2 Normal >60.0 [facility] Comment on above: Result Comment: The [facility]???s estimated glomerular filtration rate (eGFR) will no [...] of individuals. Performed By: #### L [id number] ####[facility] [place] [address] Glucose [Mass/Vol] 116 mg/dL High 70-100 [facility] Comment on above: Performed By: #### L [id number] ####[facility] ([facility])[address] [place] [address] Potassium [Moles/Vol] 4.4 mmol/L Normal 3.5-5.[address] [facility] Comment on above: Performed By: #### L [id number] ####[facility] ([facility])[address] [place] [address] Protein [Mass/Vol] 5.9 g/dL Low 6.0-8.3 [facility] Comment on above: Performed By: #### L [id number] ####[facility] ([facility])[address] [place] [address] Sodium [Moles/Vol] 134 mmol/L Low 136-145 [facility] Comment on above: Performed By: #### L [id number] ####[facility] ([facility])[address] [place] [address] Urea nitrogen [Mass/Vol] 17 mg/dL Normal 7-25 [facility] Comment on above: Performed By: #### L [id number] ####[facility] ([facility])[address] [place] [address] UREA NITROGEN/CREATININE (MASS RATIO) IN SER/PLAS 23.0 Normal [facility] Comment on above: Performed By: #### L [id number] ####[facility] ([facility])[address] [place] [address] DSon 10-13-2023 DS Admission Admitted 10/12/2023 for gallbladder polyp 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 Make sure you understand how and when to take each. Notes to patient: For Pain acetaminophen 500 mg tablet Commonly known as: Tylenol What changed: You were already taking a medication with the same name, and this prescription was added. Make sure you understand how and when to take each. Notes to patient: For Pain Take 2 tablets (1,000 mg) by mouth every 6 (six) hours for 3 days. CONTINUE taking these medications Instructions Last Dose Given Next Dose Due aspirin 81 mg EC tablet Start taking on: October 14, 2023 Notes to patient: Prophylaxis Take 1 tablet (81 mg) by mouth in the morning. Do not start before October 14, 2023. carvedilol 25 mg tablet Commonly known as: Coreg Notes to patient: For Arrhythmia cholecalciferol 25 MCG (1000 UT) capsule Commonly known as: Vitamin D-3 Notes to patient: Supplement isosorbide mononitrate ER 30 mg 24 hr tablet Commonly known as: Imdur Notes to patient: For Hypertension losartan 50 mg tablet Commonly known as: Cozaar Notes to patient: For Blood Pressure pravastatin 40 mg tablet Commonly known as: Pravachol Notes to patient: For Hyperlipidemia STOP taking these medications Allergy (diphenhydrAMINE) 25 mg capsule Generic drug: diphenhydrAMINE Where to Get Your Medications These medications were sent to [facility]/pharmacy #[id number] [place] [address] acetaminophen 500 mg tablet aspirin 81 mg EC tablet Activity No driving Showering instructions: no restriction Diet Patient currently has no discharge diet orders Allergies Shalini inhibitors, Gadolinium-containing contrast media, Iodinated contrast media, Iodine, Tetanus and diphtheria toxoids, Tetanus immune globulin, and Tetanus vaccines and toxoid Hospital Course Patient underwent uncomplicated robot-assisted laparoscopic en bloc cholecystectomy and partial liver resection. Frozen section histology did not show malignancy. Patient did well postop and was discharged home on POD#1 Pertinent Physical Exam At Time of Discharge Abdomen soft, not tender. Incisions clear. Lab Results Labs Reviewed POCT GLUCOSE METER UNSOLICITED RESULTS - Abnormal Result Value Glucose POC 115 (*) Narrative: Waived Testing in the ED is performed under the ED CLIA certificate #[id number]. ARTERIAL BLOOD GAS WITH CO-OXIMETRY - Abnormal pH, Arterial 7.32 (*) pCO2, Arterial 42 pO2, Arterial 137 (*) HCO3, Arterial 21.6 Total Hemoglobin 9.5 (*) O2 Sat, Arterial 99.7 (*) Carboxyhemoglobin 1.2 Methemoglobin 0.0 Deoxyhemoglobin 0.3 (*) Base Excess, Arterial -4.3 (*) Source Of Oxygen Nasal cannula LPM 4 Oxyhemoglobin 98.4 (*) COMPREHENSIVE METABOLIC PANEL - Abnormal Sodium 136 Potassium 4.4 Chloride 107 CO2 22 Anion Gap 11 BUN 18 Creatinine 0.73 BUN/Creatinine Ratio 24.7 Glucose 160 (*) Calcium 7.9 (*) AST 63 (*) ALT (SGPT) 53 (*) Alkaline Phosphatase 84 Total Protein 5.7 (*) Albumin 3.3 (*) Total Bilirubin 0.9 eGFR 91.4 CBC - Abnormal Auto WBC 10.46 RBC 3.01 (*) Hemoglobin 9.2 (*) Hematocrit 28.4 (*) MCV 94.4 MCH 30.6 MCHC 32.4 RDW 12.5 Platelets 130 (*) MAGNESIUM - Abnormal Magnesium 1.4 (*) PROTIME-INR - Abnormal Protime 15.0 (*) INR 1.19 (*) COMPREHENSIVE METABOLIC PANEL - Abnormal Sodium 134 (*) Potassium 4.4 Chloride 104 CO2 22 Anion Gap 12 BUN 17 Creatinine 0.74 BUN/Creatinine Ratio 23.0 Glucose 116 (*) Calcium 8.3 (*) AST 60 (*) ALT (SGPT) 52 Alkaline Phosphatase 89 Total Protein 5.9 (*) Albumin 3.4 (*) Total Bilirubin 0.8 eGFR 91.0 MAGNESIUM - Abnormal Magnesium 1.5 (*) PROTIME-INR - Abnormal Protime 14.8 INR 1.17 (*) CBC - Abnormal Auto WBC 14.01 (*) RBC 3.14 (*) Hemoglobin 9.7 (*) Hematocrit 29.4 (*) MCV 93.6 MCH 30.9 MCHC 33.0 RDW 12.6 Platelets 141 (*) POCT PERFUSION PANEL UNSOLICITED RESULTS - Abnormal SO2 POC 100 (*) Sodium POC 133 (*) Potassium POC 4.4 PO2 POC 225 (*) pH POC 7.34 TCO2 POC 25.0 Ionized Calcium POC 1.20 Hematocrit POC 32 (*) Hemoglobin POC 10.9 (*) Base Excess POC -2.0 Glucose POC 162 (*) HCO3 POC 23.4 PCO2 POC 43.6 POCT PERFUSION PANEL UNSOLICITED RESULTS - Abnormal SO2 POC 100 (*) Sodium POC 136 (*) Potassium POC 4.2 PO2 POC 230 (*) pH POC 7.37 TCO2 POC 21.0 Ionized Calcium POC 1.12 Hematocrit POC 29 (*) Hemoglobin POC 9.9 (*) Base Excess POC -5.0 (*) Glucose POC 146 (*) HCO3 POC (more content not included)... Normal [facility] MAGNESIUMon 10-13-2023 Magnesium [Mass/Vol] 1.5 mg/dL Low 1.9-2.7 [facility] Comment on above: Performed By: #### L [id number] ####[facility] ([employer])[address] [place] [address] PHOSPHORUSon 10-13-2023 Magnesium [Mass/Vol] 4.2 mg/dL Normal 2.5-5.0 [facility] Comment on above: Performed By: #### L [id number] ####[facility] ([employer])[address] [place] [address] PROTIME-INRon 10-13-2023 INR IN PPP BY COAGULATION ASSAY 1.17 High 0.90-1.10 [facility] Comment on above: Result Comment: [facility] P [...] [facility] [employer])[address] [place] [address] PROTHROMBIN TIME (PT) IN PPP BY COAGULATION ASSAY 14.8 Seconds Normal 12.3-14.8 [facility] Comment on above: Performed By: #### L [id number] ####[facility] ([facility])[address] [place] [address] 30on 10-12-2023 30 The patient is Moder ately Stable - Low risk of patient condition declining or worsening The patient's goals for the shift include The clinical goals for the shift include Over the shift, the patient did not make progress toward the following goals. Barriers to progression include post-op polyp removal from gallbladder. Recommendations to address these barriers include post-op monitoring . Normal [facility] 30 Daily Case Managemen t Update Multidisciplinary rounds have been completed. Barriers to Discharge: Pending clinical course and improvement in clinical condition. POD #0 s/p robot-assisted cholecystectomy with partial liver resection for possible malignancy. Per OP note, intra-op exam did not demonstrate malignancy. Biopsies sent for histology. Started on a clear liquids diet post-operatively. Patient is from home. Diet: Dietary Orders (From admission, onward) Start Ordered 10/12/23 1532 Clear Liquid Diet Carbonated Beverage Restricted Diet effective now Question Answer Comment Room Service? No Restrictions Carbonated Beverage Restricted 10/12/23 1532 Physician Expected Discharge Date: 10/15/2023 Discharge Delays: PT Six Click Score: OT Six Click Score: PT Recommendations: OT Recommendations: Does patient understand post acute plan of care? Yes Is expected discharge disposition appropriate for patient?: Yes New Consults: Normal [facility] APTTon 10-12-2023 ACTIVATED PARTIAL THROMBOPLASTIN TIME IN PPP BY COAGULATION ASSAY 32.1 Seconds Normal 25.0-35.0 [facility] Comment on above: 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: In PA CU Result Comment: Clin ical significance of the APTT is questionable in the presence of heparin. Performed By: #### L [id number] #### [facility] ([facility]) [address] [place] [address] ARTERIAL BLOOD GAS WITH CO-O XIMETRYon 10-12-2023 Base excess Calc (Bld) [Moles/Vol] -4.3000 mmol/L Low -2.0-3.0 [facility] Comment on above: 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: In PA CU Performed By: #### L [id number] #### [facility] [address] [place] [address] [place] CARBOXYHEMOGLOBIN/HEMO GLOBIN TOTAL % IN BLOOD 1.2 % Normal 0.0-3.0 [facility] Comment on above: 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: In PA CU Performed By: #### L [id number] #### [facility] [address] [place] [address] [facility] CO2 (Bld) [Partial pressure] 42 mm[Hg] Normal 35-48 [facility] Comment on above: 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: In PA CU Performed By: #### L [id number] #### [facility] [address] [place] [address] [facility] DEOXYGENATED HEMOGLOBIN IN BLOOD 0.3 % Low 1-5 [facility] Comment on above: 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: In PA CU Performed By: #### L [id number] #### [facility] [address] [place] [address] [facility] HCO3 (Bld) [Moles/Vol] 21.6 mmol/L Normal 21.0-28.0 [facility] Comment on above: 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: In PA CU Performed By: #### L [id number] #### [facility] RESPIRATORY THERAPY [address] [place] [address] [facility] Hemoglobin (Bld) [Mass/Vol] 9.5 g/dL Low 11.7-17.4 [facility] Comment on above: 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: In PA CU Performed By: #### L [id number] #### [facility] RESPIRATORY THERAPY [address] [place] [address] [place] LPM 4 Normal [facility] Comment on above: 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: In PA CU Performed By: #### L [id number] #### [facility] RESPIRATORY THERAPY [address] [place] [address] [place] METHEMOGLOBIN/100 IN BLOOD 0.0 % Normal 0.0-1.5 [facility] Comment on above: 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: In PA CU Performed By: #### L [id number] #### [facility] RESPIRATORY THERAPY [address] [place] [address] [place] Oxygen (Bld) [Partial pressure] 137 mm[Hg] High 83-100 [facility] Comment on above: 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: In PA CU Performed By: #### L [id number] #### [facility] RESPIRATORY THERAPY [address] [place] [address] [facility] OXYGEN SATURATION (%) IN ARTERIAL BLOOD 99.7 % High 94.0-98.0 [facility] Comment on above: 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: In PA CU Performed By: #### L [id number] #### [facility] RESPIRATORY THERAPY [address] [place] [address] [place] OXYGENATED HEMOGLOBIN IN BLOOD 98.4 % High 90.0-95.0 [facility] Comment on above: 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: In PA CU Performed By: #### L [id number] #### [facility] RESPIRATORY THERAPY [address] [place] [address] [facility] pH (Bld) 7.32 [pH] Low 7.35-7.45 [facility] Comment on above: 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: In PA CU Performed By: #### L [id number] #### [facility] RESPIRATORY THERAPY [address] [place] [address] [facility] SOURCE OF OXYGEN Nasal cannula Normal [facility] Comment on above: 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: In PA CU Performed By: #### L [id number] #### [facility] RESPIRATORY THERAPY [address] [place] [address] [facility] CBCon 10-12-2023 Erythrocyte distribution width (RBC) [Ratio] 12.5 % Normal 11.5-15.0 [facility] Comment on above: 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: In PA CU Performed By: #### L [id number] #### [facility] ([facility]) [address] [place] [address] ERYTHROCYTE MEAN CORPUSCULAR HEMOGLOBIN CONCENTRATION (G/DL) BY AUTOMATED 32.4 g/dL Normal 32.0-35.0 [facility] Comment on above: 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: In PA CU Performed By: #### L [id number] #### [facility] ([facility]) [address] [place] [address] Hematocrit (Bld) [Volume fraction] 28.4 % Low 39.0-55.0 [facility] Comment on above: 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: In PA CU Performed By: #### L [id number] #### [facility] ([facility]) [address] [place] [address] Hemoglobin (Bld) [Mass/Vol] 9.2 g/dL Low 13.0-17.0 [facility] Comment on above: 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: In PA CU Performed By: #### L [id number] #### [facility] ([facility]) [address] [place] [address] MCH (RBC) [Entitic mass] 30.6 pg Normal 27.0-33.0 [facility] Comment on above: 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: In PA CU Performed By: #### L [id number] #### [facility] ([facility]) [address] [place] [address] MCV (RBC) [Entitic vol] 94.4 fL Normal 82.0-98.0 [facility] Comment on above: 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: In PA CU Performed By: #### L [id number] #### [facility] ([facility]) [address] [place] [address] PLATELETS (10*3/UL) IN BLOOD AUTOMATED COUNT 130 10*3/uL Low 150-400 [facility] Comment on above: 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: In PA CU Performed By: #### L [id number] #### [facility] ([facility]) [address] [place] [address] RBC (Bld) [#/Vol] 3.01 10*6/uL Low 4.20-5.70 [facility] Comment on above: 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: In PA CU Performed By: #### L [id number] #### [facility] ([facility]) [address] [place] [address] WBC (Bld) [#/Vol] 10.46 10*3/uL Normal 4.00-10.60 [facility] Comment on above: 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: In PA CU Performed By: #### L [id number] #### [facility] ([facility]) [address] [place] [address] COMPREHENSIVE METABOLIC PANE [place]anto 10-12-2023 Albumin [Mass/Vol] 3.3 g/dL Low 3.5-5.7 [facility] Comment on above: 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: In PA CU Performed By: #### L [id number] ####[facility] [place] [address] ALP [Catalytic activity/Vol] 84 U/L Normal 34-104 [facility] Comment on above: 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: In PA CU Performed By: #### L [id number] ####[facility] (BEAKER)[address] [place] [address] ALT [Catalytic activity/Vol] 53 U/L High 7-52 [facility] Comment on above: 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: In PA CU Performed By: #### L [id number] ####[facility] ([facility])[address] [place] [address] Anion gap [Moles/Vol] 11 mmol/L Normal 7-[address] [facility] Comment on above: 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: In PA CU Performed By: #### L [id number] ####[facility] [place] [address] AST [Catalytic activity/Vol] 63 U/L High 13-39 [facility] Comment on above: 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: In PA CU Performed By: #### L [id number] ####[facility] [place] [address] Bilirubin [Mass/Vol] 0.9 mg/dL Normal 0.3-1.0 [facility] Comment on above: 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: In PA CU Performed By: #### L [id number] ####[facility] ([facility])[address] [place] [address] Calcium [Mass/Vol] 7.9 mg/dL Low 8.6-10.3 [facility] Comment on above: 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: In PA CU Performed By: #### L [id number] ####[facility] ([facility])[address] [place] [address] Chloride [Moles/Vol] 107 mmol/L Normal 98-107 [facility] Comment on above: 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: In PA CU Performed By: #### L [id number] ####[facility] ([facility])[address] [place] [address] CO2 [Moles/Vol] 22 mmol/L Normal 21-31 [facility] Comment on above: 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: In PA CU Performed By: #### L [id number] ####[facility] ([facility])[address] [place] [address] Creatinine [Mass/Vol] 0.73 mg/dL Normal 0.70-1.[address] [facility] Comment on above: 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: In PA CU Performed By: #### L [id number] ####[facility] ([facility])[address] [place] [address] GLOMERULAR FILTRATION RATE ML/MIN/1.73 SQ M.PREDICTED 91.4 mL/min/1.73m*2 Normal >60.0 [facility] Comment on above: 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: In PA CU Result Comment: The [facility]???s estimated glomerular filtration rate (eGFR) will no [...] of individuals. Performed By: #### L [id number] ####[facility] (BEAKER)[address] [place] [address] Glucose [Mass/Vol] 160 mg/dL High 70-100 [facility] Comment on above: 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: In PA CU Performed By: #### L [id number] ####[facility] [place] [address] Potassium [Moles/Vol] 4.4 mmol/L Normal 3.5-5.1 [facility] Comment on above: 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: In PA CU Performed By: #### L [id number] ####[facility] ([facility])[address] [place] [address] Protein [Mass/Vol] 5.7 g/dL Low 6.0-8.3 [facility] Comment on above: 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: In PA CU Performed By: #### L [id number] ####[facility] ([facility])[address] [place] [address] Sodium [Moles/Vol] 136 mmol/L Normal 136-145 [facility] Comment on above: 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: In PA CU Performed By: #### L [id number] ####[facility] ([facility])[address] [place] [address] Urea nitrogen [Mass/Vol] 18 mg/dL Normal 7-25 [facility] Comment on above: 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: In PA CU Performed By: #### L [id number] ####[facility] ([facility])[address] [place] [address] UREA NITROGEN/CREATININE (MASS RATIO) IN SER/PLAS 24.7 Normal [facility] Comment on above: 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: In PA CU Performed By: #### L [id number] ####[facility] ([facility])[address] [place] [address] HISTOLOGY - TISSUE EXAMon LAB AP CASE REPORT Normal [facility] Comment on above: 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: 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] Result Comment: Surg ical Pathology Case: [id number] Authorizing Provider: Amber Bryant MD Collected: 10/12/2023 1204 Ordering Location: [facility] Main Operating Room Received: 10/12/2023 1233 Pathologist: Luana Rivas MD Intraop: Luana Rivas MD Specimens: A) - Common Bile Duct, CYSTIC DUCT MARGIN B) - Gallbladder, GALLBLADDER AND PORTION OF SEGMENT 4/5 Performed By: #### L [id number] ####[facility] ([facility])[address] [place] [address] LAB AP INTRAOPERATIVE CONSULTATION Normal [facility] Comment on above: 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: 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 C ommon Bile Duct. Resulted 12:53 PM 10/12/23 Gallbladder, cystic duct margin, biopsy: - No malignancy identified Intraoperative Consultation by: Luana Rivas MD B. Gallbladder. Resulted 2:58 pm 10/12/23 Gallbladder, cholecystectomy: - No malignancy identified Intraoperative Consultation by: Luana Rivas MD Performed By: #### L [id number] ####[facility] ([facility])[address] [place] [address] HPon 10-12-2023 HP H&P reviewed. The pa tient was examined and there are no changes to the H&P. 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] Post-op Diagnosis * 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] Procedures Robot-Assisted Cholecystectomy with 79680 - DC LAPAROSCOPY SURG CHOLECYSTECTOMY Intraoperative Ultrasound and 58350 - DC UNLISTED LAPAROSCOPIC PROCEDURE LIVER PArtial Liver Resection of segement 4/5 17574 - DC UNLISTED LAPAROSCOPIC PROCEDURE LIVER Surgeons Primary: Amber Bryant MD Assisting: Maria Eugenia Berry MD (no appropriate level resident available for assistance) Resident - Assisting: Sisi Dueñas MD Procedure Summary Anesthesia: General ASA: IV Estimated Blood Loss: 200 mL Total IV Fluids: See anesthesia record Drains: * None in log * Specimens ID Source Type Tests Collected By Collected At Frozen? Priority Lab ID A Common Bile Duct Tissue HISTOLOGY - TISSUE EXAM Amber Bryant MD 10/12/23 1204 Yes STAT [id number] Description: CYSTIC DUCT MARGIN B Gallbladder Tissue HISTOLOGY - TISSUE EXAM Amber Bryant MD 10/12/23 1403 Yes STAT [id number] Staff: Commission Associate: Woody Massey, RN; Lukas Chacon, RN; Felicity Judge RN Relief Scrub: Rachel Martinez CST Scrub Person: Faby Garcia CST; Rachel Martinez CST Indications: Chico Baker is an 83 y.o. 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 Procedure Details: The patient was seen in the preoperative area. The risks, benefits, complications, treatment options, non-operative alternatives, expected recovery and outcomes were discussed with the patient. The possibilities of reaction to medication, pulmonary aspiration, injury to surrounding structures, bleeding, recurrent infection, the need for additional procedures, failure to diagnose a condition, and creating a complication requiring transfusion or operation were discussed with the patient. The patient concurred with the proposed plan, giving informed consent. The site of surgery was properly noted/marked if necessary per policy. The patient has been actively warmed in preoperative area. Preoperative antibiotics have been ordered and given within 1 hours of incision. Venous thrombosis prophylaxis are not indicated. Patient was taken to the operating room placed on the operating table in the supine position. The patient was induced with general intravenous anesthesia and was intubated endotracheally without incident by the anesthesia team. Please see the record for details. The abdomen was prepped and draped in the usual sterile fashion. A timeout was called and the procedure and patient were verified. An infraumbilical incision was created and the tissues were dissected down upon bluntly to the level of the linea alba. The linea alba base of umbilicus was grasped and a Veress needle was inserted into the intraperitoneal cavity. A CO2 pneumoperitoneum was created at a pressure of 12 mmHg. Following this the Veress needle was removed and a 5 mm trocar was placed into the intraperitoneal space under laparoscopic vision with the assistance of the Optiview. Upon entering the abdomen no evidence of visceral injury was identified. Furthermore inspection of the abdomen was undertaken and no evidence of peritoneal tumor was identified. No evidence of surface lesion of the liver was identified. 3 additional 8 mm robotic trocars were placed in the following positions: Right lower quadrant anterior axillary line, right lower quadrant midclavicular line, left lower quadrant midclavicular line. And 12 mm trocar was additionally placed in the left lower quadrant as an assistant brand manager port. Following this the 5 mm trocar at the umbilicus was upsized to an 8 mm robotic trocar. The robot was brought in over the patient's right side and the camera was docked the robot arm to at the right lower quadrant midclavicular line trocar. The remaining arms were docked and instrumentation was utilized as follows: Roland forceps robotic arm 1, fenestrated bipolar robotic arm 3, ProGrasp forceps robotic arm 4. Exposure of the skin to the right upper quadrant and the gallbladder was inspected. The ProGrasp forceps was utilized to retract the gallbladder cephalad. The gallbladder appeared normal in appearance with a normal thickness of the gallbladder wall. A palpable polyp was identified at the fundus of the gallbladder on the liver side. Intraoperative ultrasonography was then undertaken to interrogate the gallbladder and the gallbladder polyp. The ultrasound was brought in through the assistant brand manager port. Intraoperative ultrasonography of the gallbladder was undertaken examining the entire gallbladder in both its longitudinal and transverse (more content not included)... Normal [facility] PHOSPHORUSon 10-12-2023 Magnesium [Mass/Vol] 3.5 mg/dL Normal 2.5-5.0 [facility] Comment on above: 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: In PA CU Performed By: #### L [id number] #### [facility] ([facility]) [address] [place] [address] POCT GLUCOSE METER UNSOLICIT ED RESULTSon 10-12-2023 Glucose [Mass/Vol] 115 mg/dL High 70-105 [facility] Comment on above: 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: Waive d Testing in the ED is performed under the ED CLIA certificate #[id number]. Result Comment: spin zon Performed By: #### L [id number] ####[facility] (BEAKER)[address] [place] [address] POCT PERFUSION PANEL UNSOLIC ITED RESULTSon 10-12-2023 CO2 [Moles/Vol] 21.0 mmol/L Normal 21.0-29.0 [facility] Comment on above: Performed By: #### L [id number] ####[facility] ([facility])[address] [place] [address] Glucose [Mass/Vol] 132 mg/dL High 70-105 [facility] Comment on above: Performed By: #### L [id number] ####[facility] [place] [address] HCO3 (Bld) [Moles/Vol] 19.3 mmol/L Low 23.0-28.0 [facility] Comment on above: Performed By: #### L [id number] ####[facility] [place] [address] Hematocrit (Bld) [Volume fraction] 24 % Low 38-51 [facility] Comment on above: Performed By: #### L [id number] ####[facility] (BEJEFRY)[address] [place] [address] Hemoglobin (Bld) [Mass/Vol] 8.2 g/dL Low 12.0-17.0 [facility] Comment on above: Performed By: #### L [id number] ####[facility] [place] [address] POCT BASE EXCESS -7.0 mmol/L Low -2.0-3.0 [facility] Comment on above: Performed By: #### L [id number] ####[facility] (BEAKER)[address] [place] [address] POCT IONIZED CALCIUM 1.11 mmol/L Low 1.12-1.[address] [facility] Comment on above: Performed By: #### L [id number] ####[facility] (BEAKER)[address] [place] [address] POCT PCO2 43.3 mmHg Normal 41.0-51.0 [facility] Comment on above: Performed By: #### L [id number] ####[facility] ([facility]ER)[address] [place] [address] POCT PH 7.26 Low 7.31-7.41 [facility] Comment on above: Performed By: #### L [id number] ####[facility] (BEAKER)[address] [place] [address] POCT PO2 224 mmHg High 80-105 [facility] Comment on above: Performed By: #### L [id number] ####[facility] [place] [address] POCT SO2 100 % High 95-98 [facility] Comment on above: Performed By: #### L [id number] ####[facility] [place] [address] Potassium [Moles/Vol] 4.0 mmol/L Normal 3.5-4.[address] [facility] Comment on above: Performed By: #### L [id number] ####[facility] (BEAKER)[address] [place] [address] Sodium [Moles/Vol] 140 mmol/L Normal 138.0-146 . 0 [facility] Comment on above: Performed By: #### L [id number] ####[facility] (BEAKER)[address] [place] [address] CO2 [Moles/Vol] 21.0 mmol/L Normal 21.0-29.0 [facility] Comment on above: Performed By: #### L [id number] ####[facility] (BEAKER)[address] [place] [address] Glucose [Mass/Vol] 146 mg/dL High 70-105 [facility] Comment on above: Performed By: #### L [id number] ####[facility] (BEAKER)[address] [place] [address] HCO3 (Bld) [Moles/Vol] 19.6 mmol/L Low 23.0-28.0 [facility] Comment on above: Performed By: #### L [id number] ####[facility] (BEAKER)[address] [place] [address] Hematocrit (Bld) [Volume fraction] 29 % Low 38-51 [facility] Comment on above: Performed By: #### L [id number] ####[facility] (BEAKER)[address] [place] [address] Hemoglobin (Bld) [Mass/Vol] 9.9 g/dL Low 12.0-17.0 [facility] Comment on above: Performed By: #### L [id number] ####[facility] (BEAKER)[address] [place] [address] POCT BASE EXCESS -5.0 mmol/L Low -2.0-3.0 [facility] Comment on above: Performed By: #### L [id number] ####[facility] (BEAKER)[address] [place] [address] POCT IONIZED CALCIUM 1.12 mmol/L Normal 1.12-1.[address] [facility] Comment on above: Performed By: #### L [id number] ####[facility] ([facility]ER)[address] [place] [address] POCT PCO2 33.9 mmHg Low 41.0-51.0 [facility] Comment on above: Performed By: #### L [id number] ####[facility] (BEAKER)[address] [place] [address] POCT PH 7.37 Normal 7.31-7.41 [facility] Comment on above: Performed By: #### L [id number] ####[facility] (BEAKER)[address] [place] [address] POCT PO2 230 mmHg High 80-105 [facility] Comment on above: Performed By: #### L [id number] ####[facility] (BEAKER)[address] [place] [address] POCT SO2 100 % High 95-98 [facility] Comment on above: Performed By: #### L [id number] ####[facility] (BEAKER)[address] [place] [address] Potassium [Moles/Vol] 4.2 mmol/L Normal 3.5-4.[address] [facility] Comment on above: Performed By: #### L [id number] ####[facility] (BEAKER)[address] [place] [address] Sodium [Moles/Vol] 136 mmol/L Low 138.0-146 . 0 [facility] Comment on above: Performed By: #### L [id number] ####[facility] (BEAKER)[address] [place] [address] CO2 [Moles/Vol] 25.0 mmol/L Normal 21.0-29.0 [facility] Comment on above: Performed By: #### L [id number] ####[facility] (BEAKER)[address] [place] [address] Glucose [Mass/Vol] 162 mg/dL High 70-105 [facility] Comment on above: Performed By: #### L [id number] ####[facility] (BEAKER)[address] [place] [address] HCO3 (Bld) [Moles/Vol] 23.4 mmol/L Normal 23.0-28.0 [facility] Comment on above: Performed By: #### L [id number] ####[facility] (BE[facility]ER)[address] [place] [address] Hematocrit (Bld) [Volume fraction] 32 % Low 38-51 [facility] Comment on above: Performed By: #### L [id number] ####[facility] (BE[facility]ER)[address] [place] [address] Hemoglobin (Bld) [Mass/Vol] 10.9 g/dL Low 12.0-17.0 [facility] Comment on above: Performed By: #### L [id number] ####[facility] (BEAKER)[address] [place] [address] POCT BASE EXCESS -2.0 mmol/L Normal -2.0-3.0 [facility] Comment on above: Performed By: #### L [id number] ####[facility] [place] [address] POCT IONIZED CALCIUM 1.20 mmol/L Normal 1.12-1.[address] [facility] Comment on above: Performed By: #### L [id number] ####[facility] ([facility])[address] [place] [address] POCT PCO2 43.6 mmHg Normal 41.0-51.0 [facility] Comment on above: Performed By: #### L [id number] ####[facility] [place] [address] POCT PH 7.34 Normal 7.31-7.41 [facility] Comment on above: Performed By: #### L [id number] ####[facility] ([facility])[address] [place] [address] POCT PO2 225 mmHg High 80-105 [facility] Comment on above: Performed By: #### L [id number] ####[facility] (BEAKER)[address] [place] [address] POCT SO2 100 % High 95-98 [facility] Comment on above: Performed By: #### L [id number] ####[facility] (BEAKER)[address] [place] [address] Potassium [Moles/Vol] 4.4 mmol/L Normal 3.5-4.[address] [facility] Comment on above: Performed By: #### L [id number] ####[facility] (BEAKER)[address] [place] [address] Sodium [Moles/Vol] 133 mmol/L Low 138.0-146 . 0 [facility] [facility] Comment on above: Performed By: #### L [id number] ####[facility] (My Team Zone)[address] [place] [address] PROTIME-INRon 10-12-2023 INR IN PPP BY COAGULATION ASSAY 1.19 High 0.90-1.10 [facility] Comment on above: 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: In PA CU Result Comment: ACCC P RECOMMENDED INR FOR [...] ####[facility] POKKT)[address] [place] [address] PROTHROMBIN TIME (PT) IN PPP BY COAGULATION ASSAY 15.0 Seconds High 12.3-14.8 [facility] Comment on above: 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: In PA CU Performed By: #### L [id number] ####[facility] (My Team Zone)[address] [place] [address] HPon 10-06-2023 HP SURGERY FOLLOWUP NOT E Amber Bryant MD, MHPE, FACS, FSSO Hepatobiliary, pancreatic, biliary surgery Surgical Oncology General and minimally invasive surgery Reason for visit: Gallbladder polyp PCP: Shailesh Dunham MD Chief Complaint: Gallbladder polyp History of Present Illness: Chico Baker is a 83 y.o. male who presents for follow-up of a gallbladder mass first identified during [...] a polyp vs malignancy. The patient was scheduled for surgery approximately 2 weeks ago when he sustained a fall and fractured his clavicle. He is currently doing well and is managed with a sling. 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 Nonrheumatic aortic (valve) stenosis Osteoporosis PAD (peripheral artery disease) (CMS/HCC) Paget's disease of bone Varicose veins of both lower extremities PSH: Past Surgical History: Procedure Laterality Date ABDOMINAL AORTIC ANEURYSM REPAIR EVAR CAROTID STENT Left CATARACT EXTRACTION, BILATERAL Bilateral COLONOSCOPY CYSTOSCOPY FEMUR FRACTURE SURGERY Right KIDNEY STONE SURGERY TRANSURETHRAL RESECTION OF PROSTATE VARICOSE VEIN SURGERY Left Allergies: Allergies Allergen Reactions Shalini Inhibitors Hives [...] (six) hours if needed., Disp: , Rfl: aspirin 81 mg EC tablet, Take 81 mg by mouth in the morning., Disp: , Rfl: carvedilol (Coreg) 25 mg tablet, Take 1 tablet by mouth with breakfast and with evening meal., Disp: , Rfl: cholecalciferol (Vitamin D-3) 25 MCG (1000 UT) capsule, in the morning and at bedtime., Disp: , Rfl: isosorbide mononitrate ER (Imdur) 30 mg 24 hr tablet, Take 30 mg by mouth in the morning., Disp: , Rfl: losartan (Cozaar) 50 mg tablet, Take 50 mg by mouth at bedtime., Disp: , Rfl: pravastatin (Pravachol) 40 mg tablet, Take 40 mg by mouth at bedtime., Disp: , Rfl: Allergy, diphenhydrAMINE, 25 mg capsule, TAKE 2 CAPSULES BY MOUTH ONCE NEEDED FOR ALLERGIC REACTION 60 MINUTES PRIOR TO TEST, Disp: , Rfl: Social History: Social History Socioeconomic History Marital status: Spouse name: Not on file Number of children: Not on file Years of education: Not on file Highest education level: Not on file Occupational History Not on file Tobacco Use Smoking status: Former Packs/day: 2.00 Years: 40.00 Additional pack years: 0.00 Total pack years: 80.00 Types: Cigarettes Quit date: 1997 Years since quittin.5 Smokeless tobacco: Never Vaping Use Vaping Use: Never used Substance and Sexual Activity Alcohol use: Yes Alcohol/week: 3.0 standard drinks of alcohol Types: 3 Shots of liquor per week Drug use: Never Sexual activity: Not on file Other Topics Concern Not on file Social History Narrative Not on file Social Determinants of Health Financial Resource Strain: Not on file Food Insecurity: Not on file Transportation Needs: Not on file Physical Activity: Not on file Stress: Not on file Social Connections: Not on file Intimate Partner Violence: Unknown (10/06/2023) Humiliation, Afraid, Rape, and Kick questionnaire Fear of Current or Ex-Partner: No Emotionally Abused: Not on file Physically Abused: Not on file Sexually Abused: Not on file Housing Stability: Not on file Family History: Family History Problem Relation Name Age of Onset Heart disease Mother No Known Problems Father No Known Problems Sister Relevant medical/surgical/family/so cial histories, medications, problem list and allergies reviewed and updated with patient during the office visit. Physical Exam Vital Signs: Blood pressure 134/55, pulse 62, temperature 36.8 ???C (98.2 ???F), temperature so (more content not included)... [facility] Office Visiton 10-06-2023 Follow-up visit [id number] Clarice Baker rd J 1940 M Date Provider Department Center 10/06/2023 [id number] BRYANT DCC ONC [facility] Family History Problem Relation Age of Onset Heart disease Mother No Known Problems Father No Known Problems Sister Family Status - Relation Status Age at Mother Father Sister Alive Level of Service:05577 DC OFFICE/OUTPATIENT ESTABLISHED LOW MDM 20 MIN Reason for Visit and Comments: Follow-up [647863] - Here for F/U of his gallbladder mass. Normal [facility] ANTI C3 DATon 09-17-2023 ANTI C3 ASHLEY Negative Normal [facility] Comment on above: 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: 2 uni ts Performed By: #### L [id number] ####[facility], ANTI IGG DATon 09-17-2023 ANTI IGG ASHLEY Negative Normal [facility] Comment on above: 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: 2 uni ts Performed By: #### L [id number] #### [facility] (BEAKER) [address] [place] [address] ANTIBODY IDENTIFICATIONon ANTIBODY IDENTIFICATION [facility] Normal [facility] Comment on above: 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: 2 uni ts Performed By: #### L [id number] #### [facility] (BEAKER) [address] [facility] [place] [address] Labon 09-17-2023 Lab [id number] Clarice Baker minoo Melgoza 1940 M Date Provider Department Center 09/17/2023 2243-[facility] DCC LAB RESOURCE DCC DRAW [facility] Family History Problem Relation Age of Onset Heart disease Mother No Known Problems Father No Known Problems Sister Family Status - Relation Status Age at Mother Father Sister Alive Normal [facility] TYPE AND SCREENon 09-17-2023 AB SCREEN Positive Normal [facility] Comment on above: 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: 2 uni ts Performed By: #### L [id number] #### [facility] (BEAKER) [address] [place] [address] ABO group Nom (Bld) A Normal [facility] Comment on above: 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: 2 uni ts Performed By: #### L [id number] #### [facility] (BEAKER) [address] [place] [address] RH TYPE IN BLOOD Positive Normal [facility] Comment on above: 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: 2 uni ts Performed By: #### L [id number] #### [facility] (BEAKER) [address] [place] [address] Abstracton 09-14-2023 Abstract [id number] Clarice Baker minoo J 1940 M Date Provider Department Center 09/14/2023 [id number] ZUNIGA ONC [facility] Family History Problem Relation Age of Onset Heart disease Mother No Known Problems Father No Known Problems Sister Family Status - Relation Status Age at Mother Father Sister Alive Normal [facility] Abstracton 09-13-2023 Abstract [id number] Clarice Baker minoo J 1940 M Date Provider Department Center 09/13/2023 [id number] ZUNIGA ONC [facility] Family History Problem Relation Age of Onset Heart disease Mother No Known Problems Father No Known Problems Sister Family Status - Relation Status Age at Mother Father Sister Alive Normal [facility] ECH echo limitedon [facility] echo limited [facility] [place] [address] Echocardiogram Signed Patient: Chico Baker MR#: [id number] 284 : 1940 Acct:[id number] Age/Sex: 83 / M ADM Date: 08/31/23 Loc: Room: Type: [facility] Attending Dr: Sheri Christiansen MD Ordering Provider: Sheri Christiansen MD Date of Service: 08/31/23 [facility] echo limited: I35.0 - Nonrheumatic aortic (valve) [...] mmHg RAP systole: 3.0 mmHg Transcribed By: ANUSHA Performed At: 08/31/23 1454 Signed By: Judah Harrington MD 08/31/23 1723 Normal [facility] FPG ECG *CARDIOLOGY ONLY*on 08-19-2023 FPG ECG *CARDIOLOGY ONLY* [place] [address] Electrocardiograph Report Signed Patient: Chico Baker MR#: [id number] 284 : 1940 Acct:[id number] Age/Sex: 83 / M ADM Date: 08/19/23 [facility] Room: Type: [facility] Attending Dr: Sheri Christiansen MD Ordering Provider: [...] rhythm Normal ECG Confirmed by Sheri Christiansen ([id number]) on 08/20/2023 12:14:54 AM Referred By: Electronically Signed By:Sheri Christiansen Transcribed By: MUS Signed By Sheri Christiansen MD 4 0014 Normal [facility] 29on 08-18-2023 29 Addended by: NICOLE MONTES on: 08/19/2023 11:25 AM Modules accepted: Orders Normal [facility] APTTon 08-18-2023 ACTIVATED PARTIAL THROMBOPLASTIN TIME IN PPP BY COAGULATION ASSAY 32.1 Seconds Normal 25.0-35.0 [facility] Comment on above: Result Comment: Clin ical significance of the APTT is questionable in the presence of heparin. Performed By: #### L [id number] #### [facility] (BEAKER) [address] [facility] [place] [address] CANCER ANTIGEN 19-9on 2023 CANCER AG 19-9 (U/ML) IN SER/PLAS <2 Normal <=35 [facility] Comment on above: Result Comment: INTE RPRETIVE [...] or absence of malignant disease. Performed By: [facility] [address] [place] [address] Reservations Agent: Mario Mckeon MD, PhD CLIA Number: [id number] Performed By: #### L [id number] #### [facility] (BEAKER) [address] [place] [address] CBCon 08-18-2023 Erythrocyte distribution width (RBC) [Ratio] 12.6 % Normal 11.5-15.0 [facility] Comment on above: Performed By: #### L [id number] #### [facility] (BEAKER) [address] [place] [address] ERYTHROCYTE MEAN CORPUSCULAR HEMOGLOBIN CONCENTRATION (G/DL) BY AUTOMATED 32.3 g/dL Normal 32.0-35.0 [facility] Comment on above: Performed By: #### L [id number] #### [facility] (BEAKER) [address] [place] [address] Hematocrit (Bld) [Volume fraction] 37.8 % Low 39.0-55.0 [facility] Comment on above: Performed By: #### L [id number] #### [facility] (BEAKER) [address] [place] [address] Hemoglobin (Bld) [Mass/Vol] 12.2 g/dL Low 13.0-17.0 [facility] Comment on above: Performed By: #### L [id number] #### [facility] (BEAKER) [address] [place] [address] MCH (RBC) [Entitic mass] 30.7 pg Normal 27.0-33.0 [facility] Comment on above: Performed By: #### L [id number] #### [facility] ([facility]) [address] [place] [address] MCV (RBC) [Entitic vol] 95.0 fL Normal 82.0-98.0 [facility] Comment on above: Performed By: #### L [id number] #### [facility] ([facility]) [address] [place] [address] PLATELETS (10*3/UL) IN BLOOD AUTOMATED COUNT 206 10*3/uL Normal 150-400 [facility] Comment on above: Performed By: #### L [id number] #### [facility] ([facility]) [address] [place] [address] RBC (Bld) [#/Vol] 3.98 10*6/uL Low 4.20-5.70 [facility] Comment on above: Performed By: #### L [id number] #### [facility] ([facility]) [address] [place] [address] WBC (Bld) [#/Vol] 10.15 10*3/uL Normal 4.00-10.60 [facility] Comment on above: Performed By: #### L [id number] #### [facility] ([facility]) [address] [place] [address] COMPREHENSIVE METABOLIC PANE Santo 08-18-2023 Albumin [Mass/Vol] 4.1 g/dL Normal 3.5-5.7 [facility] Comment on above: Performed By: #### L [id number] #### [facility] ([facility]) [address] [place] [address] ALP [Catalytic activity/Vol] 122 U/L High 34-104 [facility] Comment on above: Performed By: #### L [id number] #### [facility] ([facility]) [address] [place] [address] ALT [Catalytic activity/Vol] 8 U/L Normal 7-52 [facility] Comment on above: Performed By: #### L [id number] #### [facility] ([facility]) [address] [place] [address] Anion gap [Moles/Vol] 12 mmol/L Normal 7-[address] [facility] Comment on above: Performed By: #### L [id number] #### [facility] ([facility]) [address] [place] [address] AST [Catalytic activity/Vol] 12 U/L Low 13-39 [facility] Comment on above: Performed By: #### L [id number] #### [facility] ([facility]) [address] [place] [address] Bilirubin [Mass/Vol] 0.5 mg/dL Normal 0.3-1.0 [facility] Comment on above: Performed By: #### L [id number] #### [facility] ([facility]) [address] [place] [address] Calcium [Mass/Vol] 8.9 mg/dL Normal 8.6-10.3 [facility] Comment on above: Performed By: #### L [id number] #### [facility] ([facility]) [address] [place] [address] Chloride [Moles/Vol] 102 mmol/L Normal 98-107 [facility] Comment on above: Performed By: #### L [id number] #### [facility] ([facility]) [address] [place] [address] CO2 [Moles/Vol] 26 mmol/L Normal 21-31 [facility] Comment on above: Performed By: #### L [id number] #### [facility] ([facility]) [address] [place] [address] Creatinine [Mass/Vol] 1.02 mg/dL Normal 0.70-1.[address] [facility] Comment on above: Performed By: #### L [id number] #### [facility] (BEAKER) [address] [place] [address] GLOMERULAR FILTRATION RATE ML/MIN/1.73 SQ M.PREDICTED 73.8 mL/min/1.73m*2 Normal >60.0 [facility] Comment on above: Result Comment: The [facility]???s estimated glomerular filtration rate (eGFR) will no [...] group of individuals. Performed By: #### L [id number] #### [facility] ([facility]) [address] [place] [address] Glucose [Mass/Vol] 100 mg/dL Normal 70-100 [facility] Comment on above: Performed By: #### L [id number] #### [facility] ([facility]) [address] [place] [address] Potassium [Moles/Vol] 4.7 mmol/L Normal 3.5-5.[address] [facility] Comment on above: Performed By: #### L [id number] #### [facility] ([facility]) [address] [place] [address] Protein [Mass/Vol] 7.8 g/dL Normal 6.0-8.3 [facility] Comment on above: Performed By: #### L [id number] #### [facility] [address] [place] [address] Sodium [Moles/Vol] 135 mmol/L Low 136-145 [facility] Comment on above: Performed By: #### L [id number] #### [facility] [address] [place] [address] Urea nitrogen [Mass/Vol] 24 mg/dL Normal 7-25 [facility] Comment on above: Performed By: #### L [id number] #### [facility] ([facility]) [address] [place] [address] UREA NITROGEN/CREATININE (MASS RATIO) IN SER/PLAS 23.5 Normal [facility] Comment on above: Performed By: #### L [id number] #### [facility] ([facility]) [address] [place] [address] Labon 08-18-[id number] 1940 M Date Provider Department Morven 08/18/2023 2242-[facility] RESOURCE [facility] Comprehensiv Family History Problem Relation Age of Onset Heart disease Mother No Known Problems Father No Known Problems Sister Family Status - Relation Status Age at Mother Father Sister Alive Normal [facility] Office Visiton 08-18-2023 Follow-up visit [id number] Clarice Baker [address] 1940 M Date Provider Department [place] 08/18/2023 [id number] BRYANT ONC DCC Family History Problem Relation Age of Onset Heart disease Mother No Known Problems Father No Known Problems Sister Family Status - Relation Status Age at Mother Father Sister Alive Level of Service:82556 DC OFFICE/OUTPATIENT ESTABLISHED HIGH MDM 40 MIN Reason for Visit and Comments: 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 Review MRCP that was done yesterday. Normal [facility] PROTIME-INRon 08-18-2023 INR IN PPP BY COAGULATION ASSAY 1.03 Normal 0.90-1.10 [facility] Comment on above: Result Comment: ACCC P [...] CHEST 1995;108:231S-246S. Performed By: #### L [id number] #### [facility] ([facility]) [address] [place] [address] PROTHROMBIN TIME (PT) IN PPP BY COAGULATION ASSAY 13.5 Seconds Normal 12.3-14.8 [facility] Comment on above: Performed By: #### L [id number] #### [facility] ([facility]) [address] [place] [address] TYPE AND SCREENon 08-18-2023 AB SCREEN Negative Normal [facility] Comment on above: Performed By: #### L [id number] #### [facility] ([facility]) [address] [place] [address] ABO group Nom (Bld) A Normal [facility] Comment on above: Performed By: #### L [id number] #### [facility] ([facility]) [address] [place] [address] RH TYPE IN BLOOD Positive Normal [facility] Comment on above: Performed By: #### L [id number] #### [facility] ([facility]) [address] [place] [address] MR ABDOMEN WO CONTRAST MRCPo n 08-17-2023 [...] Rodriguez MD. Not Vldtd Invalid Interpretation Code [facility] Comment on above: 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: Gallb ladder mass. 08-13-2023 29 Addended by: NICOLE MONTES on: 08/16/2023 11:34 AM Modules accepted: Orders Normal [facility] 29 Addended by: MARIA EUGENIA BERRY on: 08/13/2023 11:35 AM Modules accepted: Orders Normal [facility] Office Visiton 08-13-2023 Follow-up visit [id number] Clarice Baker minoo Melgoza 1940 M Date Provider Department Center 08/13/2023 465-MRAIA EUGENIA BERRY ONC DCC Family History Problem Relation Age of Onset Heart disease Mother No Known Problems Father No Known Problems Sister Family Status - Relation Status Age at Mother Father Sister Alive Level of Service:NOCHG 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 - Gallbladder mas Normal [facility] Orders Onlyon 08-04-2023 Orders Only [id number] Clarice Baker minoo Melgoza 1940 M Date Provider Department Center 08/04/2023 [id number], HISTORICAL DCC ONC DCC No family history on file Normal [facility] CT angio abdomen pelvison CT angio abdomen pelvis [facility] [place] [address] [place] [address] CT Scan Report Signed Patient: Chico Baker MR#: [id number] 284 : 1940 Acct:[id number] Age/Sex: 83 / M ADM Date: 06/16/23 Loc: CT Room: Type: [facility] Attending Dr: Raul Quan MD Copies [...] aortic 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 Impression dictated by: Woody Payan Jr., D.OSilvestre06/16/2023 1:59 PM Dictation Location: [place] [address] Transcribed By: [facility] 06/16/23 135 Dictated By: Woody Payan Jr, DO 06/16/23 1351 Signed By: 06/16/23 1359 Normal [facility] ISTAT XRay CREon 06-16-2023 ISTAT GFR > 60.0 Normal [facility] Comment on above: Result Comment: PERF ORMED BY: [place] [address] PATHOLOGIST CAGE OPERATOR ZENA CASTELLON M.D. Performed By: #### I SCRE #### [facility] [address] [place] [address] No Panel InformationOrdered By: Raul Quan on 06-16-2023 Bedside Estimated GFR (eGFR) > 60.0 [facility] Whole blood creatinine measu rementOrdered By: Raul Quan on 06-16-2023 Creatinine [Mass/Vol] 0.9 mg/dL Normal 0.6-1.3 [facility] Comment on above: ER/ESD physician is notified/shown all ISTAT results.Critical values may be confirmed by laboratory testing ifdeemed necessary by ER attending doctor. Result Comment: ER/E SD physician is notified/shown all ISTAT results. Critical values may be confirmed by laboratory testing if deemed necessary by ER attending doctor. Performed By: #### I SCRE #### [facility] [address] [place] [address] Calculus Analysison 05-12-19 24 Calcium oxalate dihydrate Infrared spectroscopy (Stone) [Mass fraction] 20 % Invalid Interpretation Code [facility] Comment on above: Performed By: #### 1 [id number] ####[facility] [address] [place] [address] Calcium oxalate monohydrate (Stone) [Mass fraction] 80 % Invalid Interpretation Code [facility] Comment on above: Performed By: #### 1 [id number] ####[facility] [address] [place] [address] Color (Stone) Brown Invalid Interpretation Code [facility] Comment on above: Performed By: #### 1 [id number] ####[facility] [address] [place] [address] Composition Comment Invalid Interpretation Code [facility] Comment on above: Result Comment: Perc entage (Represents the % composition) Performed By: #### 1 [id number] ####[facility] [address] [place] [address] Disclaimer: Comment Invalid Interpretation Code [facility] Comment on above: Result Comment: This test was developed and its performance characteristics determined by [facility]. It has not been cleared or approved by the Food and Drug Administration. Performed at: [facility] [id number] Emanuel Silverman Performed By: #### 1 [id number] ####[facility] [address] [place] [address] Laboratory comment Daniel (Report) Comment Invalid Interpretation Code [facility] Comment on above: Result Comment: Mina aguilar questions regarding Calculi Analysis contact [facility] at: [phone]. Performed By: #### 1 [id number] ####[address] [address] Please Note: Comment Invalid Interpretation Code [facility] Comment on above: Result Comment: Calc melissa report will follow via computer, mail or credentialing analyst delivery. Performed By: #### 1 [id number] ####[id number] [place] [address] Size (Stone) [Entitic vol] 2x3 Invalid Interpretation Code [facility] Comment on above: Result Comment: Mult iple pieces received. Dimensions of the largest piece reported. Performed By: #### 1 [id number] ####[address] [address] Specimen source subject Nom Comment Invalid Interpretation Code [facility] Comment on above: Result Comment: Not provided Performed By: #### 1 [id number] ####[id number] [place] [address] Stone Photo Comment Invalid Interpretation Code [facility] Comment on above: Result Comment: Phot ograph will follow under a separate cover Performed By: #### 1 [id number] ####[id number] [place] [address] Weight (Stone) 12 mg Invalid Interpretation Code [facility] Comment on above: Performed By: #### 1 [id number] ####[facility] [address] [place] [address] Consent for Procedure/Surger yon 05-05-2023 Consent for Procedure/Surgery [id number]#1.00TIFF [facility] RAD - MISCon 05-05-2023 RAD - MISC [id number]#1.00TIFF [facility] Ambulatory Visit Summaryon 0 05-04-2023 Ambulatory Visit [...] LEIJA, Ivelisse Schreiber Primary Care Physician - ENRICO AMADOR, SHAILESH This Is Your Medications List Contact prescribing physician if questions or concerns [facility] Prescription (#####) aspirin (aspirin 81 mg oral [...] Follow-Up Appointments Wednesday 11:00 AM EDT With: Ivelisse Hassan MD Where: [facility] Carlos Faulkner [facility] Patient Educationon 05-04-19 24 Patient Education Nephrology Dietary Guidelines to Help [...] ? 8 oz (237 mL) of milk, kvtxccd-sebxhpmjvbzn-qkjri milk, and calcium-fortifiedfruit juice. Calcium-fortified means that [...] Spinach (cooked), rhubarb, beets, sweet potatoes, and Tristanian chard. ? Peanuts. ? Potato chips, singaporean fries, and baked potatoes with skin on. ? Nuts and nut products. ? Chocolate. ? If you regularly take a diuretic medicine, make sure to eat at least 1 or 2 servings of fruits or vegetables that are high in potassium each day. These include: ? Avocado. ? Banana. ? Sharp, prune, carrot, or tomato juice. ? Baked [...] fish oil, or vitamin B6. ? Take zjhp-vgg-pxlfvwr and prescription medicines only as told by your health care provider. These include supplements. What foods sh (more content not included)... [facility] RAD - MISCon 05-04-2023 [facility] [id number]#1.00TIFF [facility] Urology Office/Clinic Noteon 05-04-2023 Urology [...] lower urinary tract symptoms) hx TURP by [facility] 2019, prostate small on 05/11/22 CT scan [...] w/KUB. All questions/concern (more content not included)... [facility] Comment on above: Result Comment: Elec tronically Signed By: Mo LEIJA, Ivelisse Schreiber\.br\Date and Time Signed: 05/04/23 12:02 EST\.br\Electronically Co-Signed By: Eleonora Belcher\.br\Date and Time Co-Signed: 05/04/23 11:47 EST Operative Reporton Operative Report [id number]#1.00TIFF [facility] Physician Orderon 04-29-2023 Physician Order [id number]#1.00TIFF [facility] RAD - MISCon 04-28-2023 RAD - MISC [id number]#1.00TIFF [facility] Consultation Noteon 04-23-19 Consultation Note [id number]#1.00TIFF [facility] Formson 04-23-2023 Forms [id number]#1.00TIFF [facility] Consent for Procedure/Surger yon 04-21-2023 Consent for Procedure/Surgery [id number]#1.00TIFF [facility] Lab Reportson 04-21-2023 Lab Reports [id number]#1.00TIFF [facility] Lab Reports [id number]#1.00TIFF [facility] Activated partial thrombopla stin time (aPTT) in platelet poor plasma by coagulation aon 04-20-2023 aPTT Coag (PPP) [Time] 32.6 s 22.3-36.2 [facility] Basophils Auto (Bld) [#/Vol] on 04-20-2023 Basophils (Bld) [#/Vol] 0.1 10 3/uL 0.0-0.1 [facility] Basophils/100 WBC Auto (Bld) on 04-20-2023 Basophils/100 WBC (Bld) 0.5 % 0.2-2.0 [facility] Eosinophils/100 WBC Auto (Bl d)on 04-20-2023 Eosinophils/100 WBC (Bld) 1.2 % 0.9-7.0 [facility] Erythrocyte distribution wid th Auto (RBC) [Ratio]on 04-20-2023 Erythrocyte distribution width (RBC) [Ratio] 12.4 % 11.0-15.0 [facility] Estimated glomerular filtrat ion rate (GFR) non- Americanon 04-20-2023 GFR/1.73 sq M.predicted among non-blacks MDRD (S/P/Bld) [Vol rate/Area] mL/min/{1.73_m2} >=60 [facility] Formson 04-20-2023 Forms [id number]#1.00TIFF [facility] Hematocrit Auto (Bld) [Volum e fraction]on 04-20-2023 Hematocrit (Bld) [Volume fraction] 36.7 % 42.0-54.0 [facility] Hemoglobin [Mass/volume] in Bloodon 04-20-2023 Hemoglobin (Bld) [Mass/Vol] 11.5 g/dL 14.0-18.0 [facility] INR in Platelet poor plasma by Coagulation assayon 04-20-2023 INR Coag (PPP) [Relative time] 1.01 {INR} [facility] Comment on above: DESIRED INR:2.0-3.0 CONDITIONS NOT LISTED BELOW2.5-3.5 FOR PROSTHETIC HEART VALVE REPLACEMENT2.5-3.5 RECURRENT THROMBOSIS Laboratory - Chemistry and C hemistry - challengeon 04-20-2023 Calcium [Mass/Vol] 9.0 mg/dL 8.5-10.1 [facility] Chloride [Moles/Vol] 104 mmol/L 98-107 [facility] CO2 [Moles/Vol] 28.9 mmol/L 21.0-32.0 [facility] Creatinine [Mass/Vol] 0.89 mg/dL 0.70-1.30 [facility] GFR/1.73 sq M.predicted MDRD (S/P/Bld) [Vol rate/Area] mL/min/{1.73_m2} >=60 [facility] Glucose [Mass/Vol] 133 mg/dL 74-106 [facility] Potassium [Moles/Vol] 4.6 mmol/L 3.5-5.1 [facility] Sodium [Moles/Vol] 140 mmol/L 136-145 [facility] Urea nitrogen [Mass/Vol] 15.0 mg/dL 7.0-18.0 [facility] Urea nitrogen/Creatinine [Mass ratio] 16.9 mg/mg [facility] Laboratory - Hematology and Cell countson 04-20-2023 Immature granulocytes/100 WBC (Bld) 0.3 % 0.0-0.5 [facility] Leukocytes [#/volume] correc shyann for nucleated erythrocytes in Blood by Automated counon 04-20-2023 WBC corrected for nucl RBC Auto (Bld) [#/Vol] 9.9 10 3/uL 4.0-11.0 [facility] Lymphocytes Auto (Bld) [#/Vo l]on 04-20-2023 Lymphocytes (Bld) [#/Vol] 1.1 10 3/uL 1.2-3.8 [facility] Lymphocytes/100 WBC Auto (Bl d)on 04-20-2023 Lymphocytes/100 WBC (Bld) 11.3 % 20.5-60.0 [facility] MCH Auto (RBC) [Entitic mass ]on 04-20-2023 MCH (RBC) [Entitic mass] 29.6 pg 25.9-34.0 [facility] MCHC Auto (RBC) [Mass/Vol]on 04-20-2023 MCHC (RBC) [Mass/Vol] 31.3 g/dL 29.9-35.2 [facility] MCV Auto (RBC) [Entitic vol] on 04-20-2023 MCV (RBC) [Entitic vol] 94.6 fL 80.0-94.0 [facility] Monocytes Auto (Bld) [#/Vol] on 04-20-2023 Monocytes (Bld) [#/Vol] 0.8 10 3/uL 0.3-0.8 [facility] Monocytes/100 WBC Auto (Bld) on 04-20-2023 Monocytes/100 WBC (Bld) 8.5 % 1.7-12.0 [facility] Neutrophils Auto (Bld) [#/Vo l]on 04-20-2023 Neutrophils (Bld) [#/Vol] 7.8 10 3/uL 1.4-6.5 [facility] Neutrophils/100 WBC Auto (Bl d)on 04-20-2023 Neutrophils/100 WBC (Bld) 78.2 % 43.0-75.0 [facility] No Panel Informationon 04-20 Eosinophils # (Auto) 0.1 10 3/uL 0.0-0.7 [facility] Immature Granulocyte # (Auto) 0.03 10 3/uL 0.00-0.03 [facility] Platelet mean volume Auto (B ld) [Entitic vol]on 04-20-2023 Platelet mean volume (Bld) [Entitic vol] 9.4 fL 9.5-13.5 [facility] Platelets Auto (Bld) [#/Vol] on 04-20-2023 Platelets (Bld) [#/Vol] 188 10 3/uL 150-450 [facility] Prothrombin time (PT)on 04-08 PT Coag (PPP) [Time] 10.7 s 9.0-11.6 [facility] RBC Auto (Bld) [#/Vol]on RBC (Bld) [#/Vol] 3.88 10 6/uL 4.70-6.10 [facility] Serum or plasma anion gap de terminationon 04-20-2023 Anion gap [Moles/Vol] 11.7 mmol/L [facility] RAD - MISCon 04-08-2023 RAD - MISC [id number]#1.00TIFF [facility] Operative Reporton Operative Report [id number]#1.00TIFF [facility] RAD - MISCon 03-25-2023 RAD - MIS [id number]#1.00TIFF [facility] Consent for Procedure/Surger yon 03-22-2023 Consent for Procedure/Surgery [id number]#1.00TIFF [facility] Lab Reportson 03-19-2023 Lab Reports [id number]#1.00TIFF [facility] RAD - MISCon 03-19-2023 RAD - MIS [id number]#1.00TIFF [facility] Reminderson 03-03-2023 Reminders - From: Faviola [...] 02/22/2023 16:05:00 EST From: Belkis Johnson MA ([facility]) To: Ivelisse Hassan MD; Sent: 02/25/2023 [...] hard stone and large stone burden. Thanks, RO Patient is scheduled for 03/24/22 @ [facility] Comment on above: Result Comment: Miss ing Attachment - attachment exceeds size limitation (02/19/2023) RAD - Ultrasound Report Can be viewed in source system Missing Attachment - attachment exceeds size limitation (02/19/2023) RAD - MISC Can be viewed in source system RAD - MISCon 02-22-2023 RAD - MISC [id number]#1.00TIFF [facility] RAD - Ultrasound Reporton RAD - Ultrasound Report [id number]#1.00TIFF [facility] Screenson 01-14-2023 Screens [id number]#1.00TIFF [facility] Screens [id number]#1.00TIFF [facility] Patient Educationon 01-14-20 Patient Education Urology [...] Follow these instructions at home: ? Take xzmc-mzw-ykzazyo and prescription medicines only as told by [...] the medicine (more content not included)... [facility] Urology Office/Clinic Noteon 01-13-2023 Urology Office/Clinic [...] with voice recognition artificial intelligence software, specifically [employer], [employer] and or [employer]. Substitutions may have occurred due to the [...] stones no (more content not included)... [facility] Comment on above: Result Comment: Elec tronically Signed By: Ivelisse Hassan MD\.br\Date and Time Signed: 01/13/23 16:25 EST\.br\Electronically Co-Signed By: Faviola Clemens\.br\Date and Time Co-Signed: 01/13/23 09:59 EST US carotid doppler BIon 09-0 US carotid doppler [place] [address] Ultrasound Report Signed Patient: Chico Baker MR#: [id number] : 1940 Acct:[id number] Age/Sex: 82 / M ADM Date: 11/10/22 Loc: [facility] Room: Type: [facility] Attending Dr: Raul Quan MD Ordering [...] Raul Quan M.D.11/10/2022 10:30 AM Dictation Location: [place] [address] Tech: Harika Pradhan Transcribed By: ALEX 11/10/22 1030 Dictated By: Raul Quan MD 11/10/22 1029 Signed By: 11/10/22 1030 Normal [facility] 10-08-2022 Screens [id number]#1.00CD:127 [facility] Screens [id number]#1.00CD:127 [facility] Ambulatory Visit Summaryon 0 10-07-2022 Ambulatory Visit Summary CHICO BAKER :1940 Visit Date:10/07/2022 Ambulatory Visit Instructions Your Diagnosis BPH with obstruction/lower urinary tract symptoms History of kidney stones Asymptomatic microscopic hematuria 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 Tests Performed Urnls Dip Stick Auto w/o Microscopy POC 52535 Your Care Team Attending Physician - Ivelisse [...] Ivelisse Hassan MD Where: [facility] Patient Educationon 10-08-19 Patient Education Urology [...] Follow these instructions at home: ? Take osfb-swc-zzjqkjh and prescription medicines only as told by [...] the medicine (more content not included)... [facility] Urology Office/Clinic Noteon 10-07-2022 Urology Office/Clinic [...] lower urinary tract symptoms) hx TURP by [facility] 2019, prostate small on 05/11/22 CT scan [...] neg, s (more content not included)... [facility] Comment on above: Result Comment: Elec tronically Signed By: Ivelisse Hassan MD\.br\Date and Time Signed: 10/07/22 10:28 EDT\.br\Electronically Co-Signed By: Eleonora Belcher\.br\Date and Time Co-Signed: 10/07/22 09:25 EDT Consent for Procedure/Surger yon 07-29-2022 Consent for Procedure/Surgery [id number]#1.00CD:127 [facility] Patient Educationon 07-29-19 Patient Education Urology [...] these instructions at home: Medicines ? Take xlbt-cfh-tvawxag and prescription medicines only as told by [...] include cig (more content not included)... [facility] Urology Office/Clinic Noteon 07-28-2022 Urology Office/Clinic [...] urine The Urethra was dilated to: 16-24 Mongolian with connor sounds without difficulty Soft 14 [...] (erectile d (more content not included)... [facility] Comment on above: Result Comment: Elec tronically Signed By: Ivelisse Hassan MD\.br\Date and Time Signed: 07/28/22 10:49 EDT\.br\Electronically Co-Signed By: Clarissa Joaquin MA.aida\Date and Time Co-Signed: 07/28/22 10:28 EDT Blood activated clotting sue e by coagulation assayOrdered By: Raul Quan on 07-08-2022 ACT Coag (Bld) 335 s 90-139 [facility] Comment on above: Reference Range: 90- 139 (Non-heparinized) Laboratory - CoagulationOrde red By: Raul Quan on 07-08-2022 PT Coag (PPP) [Time] 11.7 s 9.0-12.9 [facility] Platelet poor plasma interna tional normalized ratio (INR) by coagulation assay (relatOrdered By: Raul Quan on 07-08-2022 INR Coag (PPP) [Relative time] 1.0 {INR} [facility] Comment on above: INR Therapeutic Rang [...] 07-01-2022 ALT [Catalytic activity/Vol] 9 U/L 7-52 [facility] Albumin [Mass/volume] in Ser um or Plasma by Bromocresol green (BCG) dye binding methoOrdered By: Raul Quan on 07-01-2022 Albumin BCG dye [Mass/Vol] 3.7 g/dL 3.5-5.7 [facility] Alkaline phosphatase [Enzyma tic activity/volume] in Serum or PlasmaOrdered By: Raul Quan on 07-01-2022 ALP [Catalytic activity/Vol] 96 U/L 34-104 [facility] Aspartate aminotransferase [ Enzymatic activity/volume] in Serum or PlasmaOrdered By: Raul Quan on 07-01-2022 AST [Catalytic activity/Vol] 14 U/L 13-39 [facility] Basophils Auto (Bld) [#/Vol] Ordered By: Raul Quan on 07-01-2022 Basophils (Bld) [#/Vol] 0.1 10*3/uL 0.0-0.2 [facility] Basophils/100 WBC Auto (Bld) Ordered By: Raul Quan on 07-01-2022 Basophils/100 WBC (Bld) 0.7 % . [facility] Bilirubin.total [Mass/volume ] in Serum or PlasmaOrdered By: Raul Quan on 07-01-2022 Bilirubin [Mass/Vol] 0.5 mg/dL 0.3-1.0 [facility] Calcium [Mass/volume] in Ser um or PlasmaOrdered By: Raul Quan on 07-01-2022 Calcium [Mass/Vol] 8.5 mg/dL 8.6-10.3 [facility] Carbon dioxide, total [Moles /volume] in Serum or PlasmaOrdered By: Raul Quan on 07-01-2022 CO2 [Moles/Vol] 24.6 mmol/L 21.0-31.0 [facility] Chloride [Moles/volume] in S aisha or PlasmaOrdered By: Raul Quan on 07-01-2022 Chloride [Moles/Vol] 100 mmol/L 98-107 [facility] Creatinine [Mass/volume] in Serum or PlasmaOrdered By: Raul Quan on 07-01-2022 Creatinine [Mass/Vol] 0.87 mg/dL 0.70-1.30 [facility] Eosinophils Auto (Bld) [#/Vo l]Ordered By: Raul Quan on 07-01-2022 Eosinophils (Bld) [#/Vol] 0.1 10*3/uL 0.0-0.45 [facility] Eosinophils/100 WBC Auto (Bl d)Ordered By: Raul Quan on 07-01-2022 Eosinophils/100 WBC (Bld) 1.5 % . [facility] Erythrocyte distribution wid th Auto (RBC) [Ratio]Ordered By: Raul Quan on 07-01-2022 Erythrocyte distribution width (RBC) [Ratio] 13.0 % 12.0-14.8 [facility] Globulin Calc (S) [Mass/Vol] Ordered By: Raul Quan on 07-01-2022 Globulin (S) [Mass/Vol] 3.4 g/dL [facility] Glucose [Mass/volume] in Ser um or PlasmaOrdered By: Raul Quan on 07-01-2022 Glucose [Mass/Vol] 163 mg/dL 70-100 [facility] Comment on above: ADA recommended refe rence rangeRandom Glucose Reference Range is dependent on time and content of last meal. Glucose of more than 200 mg/dL in a nonstressed, ambulatory subject supports the diagnosis of Diabetes Mellitus. Hematocrit Auto (Bld) [Volum e fraction]Ordered By: Raul Quan on 07-01-2022 Hematocrit (Bld) [Volume fraction] 36.4 % 38.8-50.0 [facility] Hemoglobin [Mass/volume] in BloodOrdered By: Raul Quan on 07-01-2022 Hemoglobin (Bld) [Mass/Vol] 12.1 g/dL 13.0-17.0 [facility] Leukocytes [#/volume] correc shyann for nucleated erythrocytes in Blood by Automated counOrdered By: Raul Quan on 07-01-2022 WBC corrected for nucl RBC Auto (Bld) [#/Vol] 8.5 10*3/uL 4.1-10.5 [facility] Lymphocytes Auto (Bld) [#/Vo l]Ordered By: Raul Quan on 07-01-2022 Lymphocytes (Bld) [#/Vol] 1.6 10*3/uL 1.00-4.8 [facility] Lymphocytes/100 WBC Auto (Bl d)Ordered By: Raul Quan on 07-01-2022 Lymphocytes/100 WBC (Bld) 19.3 % . [facility] MCH Auto (RBC) [Entitic mass ]Ordered By: Raul Quan on 07-01-2022 MCH (RBC) [Entitic mass] 30.2 pg 27.5-35.2 [facility] MCHC Auto (RBC) [Mass/Vol]Or dered By: Raul Quan on 07-01-2022 MCHC (RBC) [Mass/Vol] 33.3 g/dL 32.5-35.6 [facility] MCV Auto (RBC) [Entitic vol] Ordered By: Raul Quan on 07-01-2022 MCV (RBC) [Entitic vol] 90.7 fL 83.5-101 [facility] Monocytes Auto (Bld) [#/Vol] Ordered By: Raul Quan on 07-01-2022 Monocytes (Bld) [#/Vol] 0.9 10*3/uL 0.0-0.8 [facility] Monocytes/100 WBC Auto (Bld) Ordered By: Raul Quan on 07-01-2022 Monocytes/100 WBC (Bld) 11.1 % . [facility] Neutrophils Auto (Bld) [#/Vo l]Ordered By: Raul Quan on 07-01-2022 Neutrophils (Bld) [#/Vol] 5.7 10*3/uL 1.8-7.7 [facility] Neutrophils/100 WBC Auto (Bl d)Ordered By: Raul Quan on 07-01-2022 Neutrophils/100 WBC (Bld) 67.4 % . [facility] No Panel InformationOrdered By: Raul Quan on 07-01-2022 Estimated GFR (CKD-EPI) > 60.0 mL/Min [facility] Creatinine Clearance (Chem N/A [facility] Nucleated erythrocytes [Pres ence] in Blood by Automated countOrdered By: Raul Quan on 07-01-2022 Nucleated RBC Auto Ql (Bld) 0.0 /100{WBC} 0-0.5 [facility] Platelet mean volume Auto (B ld) [Entitic vol]Ordered By: Raul Quan on 07-01-2022 Platelet mean volume (Bld) [Entitic vol] 7.6 fL 6.6-10.1 [facility] Platelets Auto (Bld) [#/Vol] Ordered By: Raul Quan on 07-01-2022 Platelets (Bld) [#/Vol] 198 10*3/uL 150-450 [facility] Potassium [Moles/volume] in Serum or PlasmaOrdered By: Raul Quan on 07-01-2022 Potassium [Moles/Vol] 4.4 mmol/L 3.5-5.1 [facility] Protein [Mass/volume] in Ser um or PlasmaOrdered By: Raul Quan on 07-01-2022 Protein [Mass/Vol] 7.1 g/dL 6.4-8.9 [facility] RBC Auto (Bld) [#/Vol]Ordere d By: Raul Quan on 07-01-2022 RBC (Bld) [#/Vol] 4.01 10*6/uL 3.90-5.60 [facility] Serum or plasma albumin/glob ulin mass ratioOrdered By: Raul Quan on 07-01-2022 Albumin/Globulin [Mass ratio] 1.1 {ratio} [facility] Serum or plasma anion gap de terminationOrdered By: Raul Quan on 07-01-2022 Anion gap [Moles/Vol] 13.8 mmol/L 6.0-15.0 [facility] Sodium [Moles/volume] in Ser um or PlasmaOrdered By: Raul Quan on 07-01-2022 Sodium [Moles/Vol] 134 mmol/L 136-145 [facility] Urea nitrogen [Mass/volume] in Serum or PlasmaOrdered By: Raul Quan on 07-01-2022 Urea nitrogen [Mass/Vol] 17 mg/dL 7-25 [facility] WBC Auto (Bld) [#/Vol]Ordere d By: Raul Quan on 07-01-2022 WBC (Bld) [#/Vol] 8.5 10*3/uL 4.1-10.5 [facility] Patient Educationon 06-25-19 Patient Education Urology Hematuria, [...] these instructions at home: Medicines ? Take fosw-dze-movxnkv and prescription medicines only as told by [...] the blood stops without treatment. ? Take eyqd-exe-jxeaxqs and prescription medicines only as told by your health care provider. ? Drink enough fluid to keep your urine pale yellow. This information is not intended to replace advice given to you by your health care provider. Make sure you discuss any questions you have with your health care provider. Document Revised: 10/23/2020 Document Reviewed: 10/23/2020 [employer] Patient Education ? 2022 [employer]. [facility] Screenson 06-24-2022 Screens [id number]#1.00CD:127 [facility] Screens [id number]#1.00CD:127 [facility] Urology Office/Clinic Noteon 06-24-2022 Urology [...] Urnls Dip Stick Auto w/o Microscopy POC 37504 Urology Procedure Order 4. Penile rash (R21: Rash and other nonspecific skin eruption) Pt states rash has completely cleared up after stopping Bactrim. Denies irritation. Head of penis is not red, but is discolored. Not bothersome. D/c use of cream. Resolved Ordered: Urology Procedure Order 5. ED (erectile dysfunction) (N52.9: Male erectile dysfunction, unspecified) (more content not included)... [facility] Comment on above: Result Comment: Elec tronically Signed By: Mo LEIJA, Ivelisse Schreiber\.br\Date and Time Signed: 06/24/22 10:24 EDT RAD - CT Reporton 05-14-2022 RAD - CT Report [id number]#1.00CD:127 [facility] Creatinine (Bld) [Mass/Vol]O rdered By: Raul Quan on 05-11-2022 Creatinine [Mass/Vol] 0.9 mg/dL 0.6-1.3 [facility] Comment on above: ER/ESD physician is notified/shown all ISTAT results.Critical values may be confirmed by laboratory testing ifdeemed necessary by ER attending doctor. No Panel InformationOrdered By: Raul Quan on 05-11-2022 POC Estimated GFR > 60 [facility] Comment on above: GFR estimated refere nce range: According to KDOQI guidelines, <60 ml/min/1.73m2 is sufficient to diagnose a patient with chronic kidney disease. POC Estimated GFR Non- Amer > 60 [facility] URINALYSISOrdered By: Kirstie sanchez on 04-15-2022 [...] Interpretation Code Negative [facility] UA Auto SS [place].plasma/[place] .RBC (Bld) [Mass ratio] 21-30 /HPF Invalid [...] [facility] UA Auto SS Urobilinogen Qn (U) 0.6085046 {Nikki'U}/dL Normal 0.0 - 1.0 EU/dL [facility] [...] Interpretation Code Negative [facility] UA Auto SS [place].plasma/[place] .RBC (Bld) [Mass ratio] 4-20 /HPF Normal [...] AM) Invalid Interpretation Code 1.005 - 1.030 [facility] UA Auto SS UA Spec Desc Random Urine (02/11/22 10:38 AM) Normal [facility] UA Auto SS Urobilinogen Qn (U) 0.1158635 {Nikki'U}/dL Normal 0.0 - 1.0 EU/dL [facility] UA Auto SS WBC Auto Ql (U) 1+ *ABN* (02/11/22 10:38 AM) Invalid Interpretation Code Negative [facility] UA Auto SS WBC LM.HPF (Urine sed) [#/Area] 0-5 /HPF Normal 0-5/HPF [facility] UA Auto SS Basophils Auto (Bld) [#/Vol] Ordered By: Raul Quan on 02-05-2022 Basophils (Bld) [#/Vol] 0.1 10*3/uL 0.0-0.2 [facility] Basophils/100 WBC Auto (Bld) Ordered By: Raul Quan on 02-05-2022 Basophils/100 WBC (Bld) 0.6 % . [facility] Creatinine and Glomerular fi ltration rate.predicted panel (S/P/Bld)Ordered By: Raul Quan on 02-05-2022 Creatinine [Mass/Vol] 0.94 mg/dL 0.64-1.27 [facility] Eosinophils Auto (Bld) [#/Vo l]Ordered By: Raul Quan on 02-05-2022 Eosinophils (Bld) [#/Vol] 0.1 10*3/uL 0.0-0.45 [facility] Eosinophils/100 WBC Auto (Bl d)Ordered By: Raul Quan on 02-05-2022 Eosinophils/100 WBC (Bld) 0.7 % . [facility] Erythrocyte distribution wid th Auto (RBC) [Ratio]Ordered By: Raul Quan on 02-05-2022 Erythrocyte distribution width (RBC) [Ratio] 13.8 % 12.0-14.8 [facility] Estimated glomerular filtrat ion rate (GFR) non- AmericanOrdered By: Raul Quan on 02-05-2022 GFR/1.73 sq M.predicted among non-blacks MDRD (S/P/Bld) [Vol rate/Area] > 60 mL/Min [facility] Hematocrit Auto (Bld) [Volum e fraction]Ordered By: Raul Quan on 02-05-2022 Hematocrit (Bld) [Volume fraction] 34.6 % 38.8-50.0 [facility] Hemoglobin [Mass/volume] in BloodOrdered By: Raul Quan on 02-05-2022 Hemoglobin (Bld) [Mass/Vol] 11.4 g/dL 13.0-17.0 [facility] Leukocytes [#/volume] correc shyann for nucleated erythrocytes in Blood by Automated counOrdered By: Raul Quan on 02-05-2022 WBC corrected for nucl RBC Auto (Bld) [#/Vol] 10.3 10*3/uL 4.1-10.5 [facility] Lymphocytes Auto (Bld) [#/Vo l]Ordered By: Raul Quan on 02-05-2022 Lymphocytes (Bld) [#/Vol] 1.5 10*3/uL 1.00-4.8 [facility] Lymphocytes/100 WBC Auto (Bl d)Ordered By: Raul Quan on 02-05-2022 Lymphocytes/100 WBC (Bld) 14.4 % . [facility] MCH Auto (RBC) [Entitic mass ]Ordered By: Raul Quan on 02-05-2022 MCH (RBC) [Entitic mass] 30.1 pg 27.5-35.2 [facility] MCHC Auto (RBC) [Mass/Vol]Or dered By: Raul Quan on 02-05-2022 MCHC (RBC) [Mass/Vol] 32.9 g/dL 32.5-35.6 [facility] MCV Auto (RBC) [Entitic vol] Ordered By: Raul Quan on 02-05-2022 MCV (RBC) [Entitic vol] 91.6 fL 83.5-101 [facility] Monocytes Auto (Bld) [#/Vol] Ordered By: Raul Quan on 02-05-2022 Monocytes (Bld) [#/Vol] 1.5 10*3/uL 0.0-0.8 [facility] Monocytes/100 WBC Auto (Bld) Ordered By: Raul Quan on 02-05-2022 Monocytes/100 WBC (Bld) 14.8 % . [facility] Neutrophils Auto (Bld) [#/Vo l]Ordered By: Raul Quan on 02-05-2022 Neutrophils (Bld) [#/Vol] 7.1 10*3/uL 1.8-7.7 [facility] Neutrophils/100 WBC Auto (Bl d)Ordered By: Raul Quan on 02-05-2022 Neutrophils/100 WBC (Bld) 69.5 % . [facility] No Panel InformationOrdered By: Raul Quan on 02-05-2022 Estimated GFR () > 60 mL/Min [facility] Comment on above: GFR estimated refere nce range: According to KDOQI guidelines, <60 ml/min/1.73m2 is sufficient to diagnose a patient with chronic kidney disease. Pharmacy Creatinine Clearance (Chem 57.50 [facility] Nucleated erythrocytes [Pres ence] in Blood by Automated countOrdered By: Raul Quan on 02-05-2022 Nucleated RBC Auto Ql (Bld) 0.1 /100{WBC} 0-0.5 [facility] Platelet mean volume Auto (B ld) [Entitic vol]Ordered By: Raul Quan on 02-05-2022 Platelet mean volume (Bld) [Entitic vol] 7.9 fL 6.6-10.1 [facility] Platelets Auto (Bld) [#/Vol] Ordered By: Raul Quan on 02-05-2022 Platelets (Bld) [#/Vol] 142 10*3/uL 150-450 [facility] Comment on above: Delta: 198 on -08 RBC Auto (Bld) [#/Vol]Ordere d By: Raul Quan on 02-05-2022 RBC (Bld) [#/Vol] 3.77 10*6/uL 3.90-5.60 [facility] Serum or plasma anion gap de terminationOrdered By: Raul Quan on 02-05-2022 Anion gap [Moles/Vol] 10.4 mmol/L 6.0-15.0 [facility] Serum or plasma calcium richy urement (mass/volume)Ordered By: Raul Quan on 02-05-2022 Calcium [Mass/Vol] 8.4 mg/dL 8.2-10.2 [facility] Serum or plasma chloride young surement (moles/volume)Ordered By: Raul Quan on 02-05-2022 Chloride [Moles/Vol] 101 mmol/L 95-114 [facility] Serum or plasma glucose richy urement (mass/volume)Ordered By: Raul Quan on 02-05-2022 Glucose [Mass/Vol] 109 mg/dL 70-100 [facility] Comment on above: ADA recommended refe rence rangeRandom Glucose Reference Range is dependent on time and content of last meal. Glucose of more than 200 mg/dL in a nonstressed, ambulatory subject supports the diagnosis of Diabetes Mellitus. Serum or plasma potassium me asurement (moles/volume)Ordered By: Raul Quan on 02-05-2022 Potassium [Moles/Vol] 4.6 mmol/L 3.5-5.1 [facility] Serum or plasma sodium measu rement (moles/volume)Ordered By: Raul Quan on 02-05-2022 Sodium [Moles/Vol] 135 mmol/L 136-146 [facility] Serum or plasma total carbon dioxide measurement (moles/volume)Ordered By: Raul Quan on 02-05-2022 CO2 [Moles/Vol] 28.2 mmol/L 22.0-30.0 [facility] Serum or plasma urea nitroge n measurement (mass/volume)Ordered By: Raul Quan on 02-05-2022 Urea nitrogen [Mass/Vol] 11 mg/dL 11-28 [facility] WBC Auto (Bld) [#/Vol]Ordere d By: Raul Quan on 02-05-2022 WBC (Bld) [#/Vol] 10.3 10*3/uL 4.1-10.5 [facility] Covid-19 PCR (CVDTB)on 01-07 SARS-CoV-2 (COVID-19) RNA JESSIE+probe Ql (Unsp spec) Not detected Normal NOT DETECTED [facility] Comment on above: Result Comment: This test is not yet approved or cleared by the [place] FDA. When there are no FDA-approved or cleared tests available, and other criteria are met, FDA can make tests available under an emergency access mechanism called an Emergency Use Authorization (EUA). The EUA for this test is supported by the [place] of Health and Human Service's (HHS's) declaration [...] SARS-CoV-2. Performed By: #### C VDTB #### [facility] [address] [address] [address] Jodi Oglesby CBC AUTO DIFFon 12-08-2021 BASO # 0.1 103/ul Normal 0.0-0.1 [facility] Comment on above: Performed By: #### D ATA1C #### [facility] [address] [place] [address] Dr. Jodi Oglesby Basophils/100 WBC (Bld) 0.5 % Normal 0.2-2.0 [facility] Comment on above: Performed By: #### D ATA1C #### [facility] [address] [place] [address] Dr. Jodi Oglesby EO # 0.1 103/ul Normal 0.0-0.7 [facility] Comment on above: Performed By: #### D ATA1C #### [facility] [address] [place] [address] Dr. Jodi Oglesby Eosinophils/100 WBC (Bld) 1.4 % Normal 0.9-7.0 [facility] Comment on above: Performed By: #### D ATA1C #### [facility] [address] [place] [address] Dr. Jodi Oglesby Erythrocyte distribution width (RBC) [Ratio] 13.0 % Normal 11.0-15.0 [facility] Comment on above: Performed By: #### D ATA1C #### [facility] [address] [place] [address] Dr. Jodi Oglesby Hematocrit (Bld) [Volume fraction] 36.1 % Critically low 42.0-54.0 [facility] Comment on above: Performed By: #### D ATA1C #### [facility] [address] [place] [address] Dr. Jodi Oglesby Hemoglobin (Bld) [Mass/Vol] 11.2 g/dL Critically low 14.0-18.0 [facility] Comment on above: Performed By: #### D ATA1C #### [facility] [address] [place] [address] Dr. Jodi Oglesby IG # 0.04 10e3/ul Critically high 0.00-0.03 [facility] Comment on above: Performed By: #### D ATA1C #### [facility] [address] [place] [address] Dr. Jodi Oglesby IG % 0.4 % Normal 0.0-0.5 [facility] Comment on above: Performed By: #### D ATA1C #### [facility] [address] [place] [address] Dr. Jodi Oglesby LYMPH # 1.8 103/ul Normal 1.2-3.8 [facility] Comment on above: Performed By: #### D ATA1C #### [facility] [address] [place] [address] Dr. Jodi Oglesby Lymphocytes/100 WBC (Bld) 17.2 % Critically low 20.5-60.0 [facility] Comment on above: Performed By: #### D ATA1C #### [facility] [address] [place] [address] Dr. Jodi Oglesby MANUAL DIFF REQ NO Normal [facility] Comment on above: Performed By: #### D ATA1C #### [facility] [address] [place] [address] Dr. Jodi Oglesby MCH (RBC) [Entitic mass] 30.4 pg Normal 25.9-34.0 [facility] Comment on above: Performed By: #### D ATA1C #### [facility] [address] [place] [address] Dr. Jodi Oglesby MCHC (RBC) [Mass/Vol] 31.0 g/dL Normal 29.9-35.2 [facility] Comment on above: Performed By: #### D ATA1C #### [facility] [address] [place] [address] Dr. Jodi Oglesby MCV (RBC) [Entitic vol] 98.1 fL Critically high 80.0-94.0 [facility] Comment on above: Performed By: #### D ATA1C #### [facility] [address] [place] [address] Dr. Jodi Oglesby MONO # 1.0 103/ul Critically high 0.3-0.8 [facility] Comment on above: Performed By: #### D ATA1C #### [facility] [address] [place] [address] Dr. Jodi Oglesby Monocytes/100 WBC (Bld) 9.8 % Normal 1.7-12.0 [facility] Comment on above: Performed By: #### D ATA1C #### [facility] [address] [place] [address] Dr. Jodi Oglesby NEUT # 7.3 103/ul Critically high 1.4-6.5 [facility] Comment on above: Performed By: #### D ATA1C #### [facility] [address] [place] [address] Dr. Jodi Oglesby Neutrophils/100 WBC (Bld) 70.7 % Normal 43.0-75.0 [facility] Comment on above: Performed By: #### D ATA1C #### [facility] [address] [place] [address] Dr. Jodi Oglesby Platelet mean volume (Bld) [Entitic vol] 9.1 fL Critically low 9.5-13.5 [facility] Comment on above: Performed By: #### Chavez ATA1C #### [facility] [address] [place] [address] Dr. Jodi Oglesby PLT 214 103/ul Normal 150-450 [facility] Comment on above: Performed By: #### D ATA1C #### [facility] [address] [place] [address] Dr. Jodi Oglesby RBC 3.68 106/ul Critically low 4.70-6.10 [facility] Comment on above: Performed By: #### D ATA1C #### [facility] [address] [place] [address] Dr. Jodi Oglesby WBC 10.3 103/ul Normal 4.0-11.0 [facility] Comment on above: Performed By: #### D ATA1C #### [facility] [address] [place] [address] Dr. Jodi Oglesby PROF CHEM 8 (BAS METB)on Anion gap [Moles/Vol] 9.7 mmol/L Normal [facility] Comment on above: Performed By: #### C BC #### [facility] [address] [place] [address] Dr. Jodi Oglesby Calcium [Mass/Vol] 8.9 mg/dL Normal 8.5-10.1 [facility] Comment on above: Performed By: #### C BC #### [facility] [address] [place] [address] Dr. Jodi Oglesby Chloride [Moles/Vol] 102 mmol/L Normal 98-107 [facility] Comment on above: Performed By: #### C BC #### [facility] [address] [place] [address] Dr. Jodi Oglesby CO2 [Moles/Vol] 31.0 mmol/L Normal 21.0-32.0 [facility] Comment on above: Performed By: #### C BC #### [facility] [address] [place] [address] Dr. Jodi Oglesby Creatinine [Mass/Vol] 0.85 mg/dL Normal 0.70-1.30 [facility] Comment on above: Performed By: #### C BC #### [facility] [address] [place] [address] Dr. Jodi Oglesby EGFR-AF KITTITIAN >60 Normal >=60 [facility] Comment on above: Performed By: #### C BC #### [facility] [address] [place] [address] Dr. Jodi Oglesby EGFR-NON AF KITTITIAN >60 Normal >=60 [facility] Comment on above: Performed By: #### C BC #### [facility] [address] [place] [address] Dr. Jodi Oglesby Glucose [Mass/Vol] 106 mg/dL Normal 74-106 [facility] Comment on above: Performed By: #### C BC #### [facility] [address] [place] [address] Dr. Jodi Oglesby Potassium [Moles/Vol] 4.7 mmol/L Normal 3.5-5.1 [facility] Comment on above: Performed By: #### C BC #### [facility] [address] [place] [address] Dr. Jodi Oglesby Sodium [Moles/Vol] 138 mmol/L Normal 136-145 [facility] Comment on above: Performed By: #### C BC #### [facility] [address], [place] [address] Dr. Jodi Oglesby Urea nitrogen [Mass/Vol] 14.0 mg/dL Normal 7.0-18.0 [facility] Comment on above: Performed By: #### C BC #### [facility] [address], [place] [address] Dr. Jodi Oglesby Urea nitrogen/Creatinine [Mass ratio] 16.5 mg/mg Normal [facility] Comment on above: Performed By: #### C BC #### [facility] [address], [place] [address] Dr. Jodi Oglesby XR CHEST 2 Von [...] ROCIO RICARDO Date: 2021-12-08 16:20 Normal [facility] Covid-19 PCR (CVDTB)on 11-07 SARS-CoV-2 (COVID-19) RNA JESSIE+probe Ql (Unsp spec) Not detected Normal NOT DETECTED [facility] Comment on above: Result Comment: This test is not yet approved or cleared by the [place] FDA. When there are no FDA-approved or cleared tests available, and other criteria are met, FDA can make tests available under an emergency access mechanism called an Emergency Use Authorization (EUA). The EUA for this test is supported by the [place] of Health and Human Service's (HHS's) declaration [...] SARS-CoV-2. Performed By: #### C VDTB #### [facility] [address] [place] [address] Dr. Jodi Oglesby CBC AUTO DIFFon 11-11-2021 BASO # 0.1 103/ul Normal 0.0-0.1 [facility] Comment on above: Performed By: #### C BC #### [facility] [address] [place] [address] Dr. Jodi Oglesby Basophils/100 WBC (Bld) 0.5 % Normal 0.2-2.0 [facility] Comment on above: Performed By: #### C BC #### [facility] [address] [place] [address] Dr. Jodi Oglesby EO # 0.2 103/ul Normal 0.0-0.7 [facility] Comment on above: Performed By: #### C BC #### [facility] [address] [place] [address] Dr. Jodi Oglesby Eosinophils/100 WBC (Bld) 1.9 % Normal 0.9-7.0 [facility] Comment on above: Performed By: #### C BC #### [facility] [address] [place] [address] Dr. Jodi Oglesby Erythrocyte distribution width (RBC) [Ratio] 13.6 % Normal 11.0-15.0 [facility] Comment on above: Performed By: #### C BC #### [facility] [address] [place] [address] Dr. Jodi Oglesby Hematocrit (Bld) [Volume fraction] 28.6 % Critically low 42.0-54.0 [facility] Comment on above: Performed By: #### C BC #### [facility] [address] [place] [address] Dr. Jodi Oglesby Hemoglobin (Bld) [Mass/Vol] 9.4 g/dL Critically low 14.0-18.0 [facility] Comment on above: Performed By: #### C BC #### [facility] [address] [place] [address] Dr. Jodi Oglesby IG # 0.08 10e3/ul Critically high 0.00-0.03 [facility] Comment on above: Performed By: #### C BC #### [facility] [address] [place] [address] Dr. Jodi Oglesby IG % 0.8 % Critically high 0.0-0.5 [facility] Comment on above: Performed By: #### C BC #### [facility] [address] [place] [address] Dr. Jodi Oglesby LYMPH # 1.3 103/ul Normal 1.2-3.8 [facility] Comment on above: Performed By: #### C BC #### [facility] [address] [place] [address] Dr. Jodi Oglesby Lymphocytes/100 WBC (Bld) 13.0 % Critically low 20.5-60.0 [facility] Comment on above: Performed By: #### C BC #### [facility] [address] [place] [address] Dr. Jodi Oglesby MANUAL DIFF REQ NO Normal [facility] Comment on above: Performed By: #### C BC #### [facility] [address] [place] [address] Dr. Jodi Oglesby MCH (RBC) [Entitic mass] 31.5 pg Normal 25.9-34.0 [facility] Comment on above: Performed By: #### C BC #### [facility] [address] [place] [address] Dr. Jodi Oglesby MCHC (RBC) [Mass/Vol] 32.9 g/dL Normal 29.9-35.2 [facility] Comment on above: Performed By: #### C BC #### [facility] [address] [place] [address] Dr. Jodi Oglesby MCV (RBC) [Entitic vol] 96.0 fL Critically high 80.0-94.0 [facility] Comment on above: Performed By: #### C BC #### [facility] [address] [place] [address] Dr. Jodi Oglesby MONO # 1.1 103/ul Critically high 0.3-0.8 [facility] Comment on above: Performed By: #### C BC #### [facility] [address] [place] [address] Dr. Jodi Oglesby Monocytes/100 WBC (Bld) 10.7 % Normal 1.7-12.0 [facility] Comment on above: Performed By: #### C BC #### [facility] [address] [place] [address] Dr. Jodi Oglesby NEUT # 7.4 103/ul Critically high 1.4-6.5 [facility] Comment on above: Performed By: #### C BC #### [facility] [address] [place] [address] Dr. Jodi Oglesby Neutrophils/100 WBC (Bld) 73.1 % Normal 43.0-75.0 [facility] Comment on above: Performed By: #### C BC #### [facility] [address] [place] [address] Dr. Jodi Oglesby Platelet mean volume (Bld) [Entitic vol] 9.3 fL Critically low 9.5-13.5 [facility] Comment on above: Performed By: #### C BC #### [facility] [address] [place] [address] Dr. Jodi Oglesby PLT 288 103/ul Normal 150-450 [facility] Comment on above: Performed By: #### C BC #### [facility] [address] [place] [address] Dr. Jodi Oglesby RBC 2.98 106/ul Critically low 4.70-6.10 [facility] Comment on above: Performed By: #### C BC #### [facility] [address] [place] [address] Dr. Jodi Oglesby WBC 10.1 103/ul Normal 4.0-11.0 [facility] Comment on above: Performed By: #### C BC #### [facility] [address] [address] ABD/PELVIS WO CONon [...] TAYO CASTILLO Date: 2021-11-11 03:10 Normal [facility] Covid-19 PCR (CVDTB)on SARS-CoV-2 (COVID-19) RNA JESSIE+probe Ql (Unsp spec) Not detected Normal NOT DETECTED [facility] Comment on above: Result Comment: When [...] for this test is supported by the [employer] of Health and Human Service's declaration that [...] used). Performed By: #### C BC #### [facility] [address], [place] [address] Dr. Jodi LOOMIS BLD IMMUNO SCREENon OCCULT BLOOD Negative Normal NEGATIVE [facility] Comment on above: Performed By: #### D ATA1C #### [facility] [address] [address] [address] Jodi Oglesby PROF 14(COMP METB)on 022 Albumin [Mass/Vol] 3.0 g/dL Critically low 3.4-5.0 [facility] Comment on above: Performed By: #### C MP #### [facility] [address] [place] [address] Dr. Jodi Oglesby Albumin/Globulin [Mass ratio] 0.8 {ratio} Normal [facility] Comment on above: Performed By: #### C MP #### [facility] [address] [place] [address] Dr. Jodi Oglesby ALP [Catalytic activity/Vol] 126 U/L Critically high 46-116 [facility] Comment on above: Performed By: #### C MP #### [facility] [address] [place] [address] Dr. Jodi Oglesby ALT [Catalytic activity/Vol] 22 U/L Normal 16-63 [facility] Comment on above: Performed By: #### C MP #### [facility] [address] [place] [address] Dr. Jodi Oglesby Anion gap [Moles/Vol] 16.7 mmol/L Normal [facility] Comment on above: Performed By: #### C MP #### [facility] [address] [place] [address] Dr. Jodi Oglesby AST [Catalytic activity/Vol] 23 U/L Normal 15-37 [facility] Comment on above: Performed By: #### C MP #### [facility] [address] [place] [address] Dr. Jodi Oglesby Bilirubin [Mass/Vol] 0.6 mg/dL Normal 0.2-1.0 [facility] Comment on above: Performed By: #### C MP #### [facility] [address] [place] [address] Dr. Jodi Oglesby Calcium [Mass/Vol] 8.5 mg/dL Normal 8.5-10.1 [facility] Comment on above: Performed By: #### C MP #### [facility] [address] [address] [address] Jodi Oglesby Chloride [Moles/Vol] 99 mmol/L Normal 98-107 [facility] Comment on above: Performed By: #### C MP #### [facility] [address] [address] [address] Jodi Oglesby CO2 [Moles/Vol] 27.4 mmol/L Normal 21.0-32.0 [facility] Comment on above: Performed By: #### C MP #### [facility] [address] [place] [address] Dr. Jodi Oglesby Creatinine [Mass/Vol] 0.80 mg/dL Normal 0.70-1.30 [facility] Comment on above: Performed By: #### C MP #### [facility] [address] [place] [address] Dr. Jodi Oglesby EGFR-AF KITT[place]IAN >60 Normal >=60 [facility] Comment on above: Performed By: #### C MP #### [facility] [address] [place] [address] Dr. Jodi Oglesby EGFR-NON AF [place]IAN >60 Normal >=60 [facility] Comment on above: Performed By: #### C MP #### [facility] [address] [place] [address] Dr. Jodi Oglesby Globulin (S) [Mass/Vol] 3.9 g/dL Normal [facility] Comment on above: Performed By: #### C MP #### [facility] [address] [place] [address] Dr. Jodi Oglesby Glucose [Mass/Vol] 116 mg/dL Critically high 74-106 T [facility] Comment on above: Performed By: #### C MP #### [facility] [address] [address] [address] Jodi Oglesby Potassium [Moles/Vol] 4.1 mmol/L Normal 3.5-5.1 [facility] Comment on above: Performed By: #### C MP #### [facility] [address] [place] [address] Dr. Jodi Oglesby Protein [Mass/Vol] 6.9 g/dL Normal 6.4-8.2 [facility] Comment on above: Performed By: #### C MP #### [facility] [address] [place] [address] Dr. Jodi Oglesby Sodium [Moles/Vol] 129 mmol/L Critically low 136-145 [facility] Comment on above: Performed By: #### C MP #### [facility] [address] [place] [address] Dr. Jodi Oglesby Urea nitrogen [Mass/Vol] 15.0 mg/dL Normal 7.0-18.0 [facility] Comment on above: Performed By: #### C MP #### [facility] [address] [place] [address] Dr. Jodi Oglesby Urea nitrogen/Creatinine [Mass ratio] 18.8 mg/mg Normal [facility] Comment on above: Performed By: #### C MP #### [facility] [address] [place] [address] Dr. Jodi Oglesby PROTIMEon 11-11-2021 INR Coag (PPP) [Relative time] 1.01 {INR} Normal [facility] Comment on above: Performed By: #### P TT, PT #### [facility] [address] [place] [address] Dr. Jodi Oglesby INR GUIDELINES SEE BELOW Normal [facility] Comment on above: Result Comment: ESHA RED INR: 2.0 - 3.0 CONDITIONS NOT LISTED BELOW 2.5 - 3.5 FOR PROSTHETIC HEART VALVE REPLACEMENT 2.5 - 3.5 RECURRENT THROMBOSIS Performed By: #### P TT, PT #### [facility] [address] [place] [address] Dr. Jodi Oglesby PT Coag (PPP) [Time] 10.9 s Normal 9.0-11.6 [facility] Comment on above: Performed By: #### P TT, PT #### [facility] [address] [place] [address] Dr. Jodi Oglesby PTTon 11-11-2021 aPTT Coag (Bld) [Time] 25.4 s Normal 22.3-36.2 [facility] Comment on above: Performed By: #### P TT, PT #### [facility] [address] [place] [address] Dr. Jodi Oglesby CBC AUTO DIFFon 10-26-2021 BASO # 0.0 103/ul Normal 0.0-0.1 [facility] Comment on above: Performed By: #### D ATA1C #### [facility] [address] [place] [address] Dr. Jodi Oglesby Basophils/100 WBC (Bld) 0.3 % Normal 0.2-2.0 [facility] Comment on above: Performed By: #### D ATA1C #### [facility] [address] [place] [address] Dr. Jodi Oglesby EO # 0.1 103/ul Normal 0.0-0.7 [facility] Comment on above: Performed By: #### D ATA1C #### [facility] [facility] [address] [place] [address] Dr. Jodi Oglesby Eosinophils/100 WBC (Bld) 0.5 % Critically low 0.9-7.0 [facility] Comment on above: Performed By: #### D ATA1C #### [facility] [address] [place] [address] Dr. Jodi Oglesby Erythrocyte distribution width (RBC) [Ratio] 12.4 % Normal 11.0-15.0 [facility] Comment on above: Performed By: #### D ATA1C #### [facility] [address] [place] [address] Dr. Jodi Oglesby Hematocrit (Bld) [Volume fraction] 39.5 % Critically low 42.0-54.0 [facility] Comment on above: Performed By: #### D ATA1C #### [facility] [address] [place] [address] Dr. Jodi Oglesby Hemoglobin (Bld) [Mass/Vol] 12.8 g/dL Critically low 14.0-18.0 [facility] Comment on above: Performed By: #### D ATA1C #### [facility] [address] [place] [address] Dr. Jodi Oglesby IG # 0.07 10e3/ul Critically high 0.00-0.03 [facility] Comment on above: Performed By: #### D ATA1C #### [facility] [address] [place] [address] Dr. Jodi Oglesby IG % 0.5 % Normal 0.0-0.5 [facility] Comment on above: Performed By: #### D ATA1C #### [facility] [address] [place] [address] Dr. Jodi Oglesby LYMPH # 0.9 103/ul Critically low 1.2-3.8 [facility] Comment on above: Performed By: #### D ATA1C #### [facility] [address] [place] [address] Dr. Jodi Oglesby Lymphocytes/100 WBC (Bld) 6.3 % Critically low 20.5-60.0 [facility] Comment on above: Performed By: #### D ATA1C #### [facility] [address] [place] [address] Dr. Jodi Oglesby MANUAL DIFF REQ NO Normal [facility] Comment on above: Performed By: #### D ATA1C #### [facility] [address] [place] [address] Dr. Jodi Oglesby MCH (RBC) [Entitic mass] 30.8 pg Normal 25.9-34.0 [facility] Comment on above: Performed By: #### D ATA1C #### [facility] [address] [place] [address] Dr. Jodi Oglesby MCHC (RBC) [Mass/Vol] 32.4 g/dL Normal 29.9-35.2 [facility] Comment on above: Performed By: #### D ATA1C #### [facility] [address] [place] [address] Dr. Jodi Oglesby MCV (RBC) [Entitic vol] 95.2 fL Critically high 80.0-94.0 [facility] Comment on above: Performed By: #### D ATA1C #### [facility] [address] [place] [address] Dr. Jodi Oglesby MONO # 0.9 103/ul Critically high 0.3-0.8 [facility] Comment on above: Performed By: #### D ATA1C #### [facility] [address] [place] [address] Dr. Jodi Oglesby Monocytes/100 WBC (Bld) 6.2 % Normal 1.7-12.0 [facility] Comment on above: Performed By: #### D ATA1C #### [facility] [address] [place] [address] Dr. Jodi Oglesby NEUT # 12.8 103/ul Critically high 1.4-6.5 [facility] Comment on above: Performed By: #### D ATA1C #### [facility] [address] [place] [address] Dr. Jodi Oglesby Neutrophils/100 WBC (Bld) 86.2 % Critically high 43.0-75.0 [facility] Comment on above: Performed By: #### Chavez ATA1C #### [facility] [address] [place] [address] Dr. Jodi Oglesby Platelet mean volume (Bld) [Entitic vol] 9.4 fL Critically low 9.5-13.5 [facility] Comment on above: Performed By: #### D ATA1C #### [facility] [address] [place] [address] Dr. Jodi Oglesby PLT 169 103/ul Normal 150-450 [facility] Comment on above: Performed By: #### Chavez ATA1C #### [facility] [address] [place] [address] Dr. Jodi Oglesby RBC 4.15 106/ul Critically low 4.70-6.10 [facility] Comment on above: Performed By: #### D ATA1C #### [facility] [address] [place] [address] Dr. Jodi Oglesby WBC 14.8 103/ul Critically high 4.0-11.0 [facility] Comment on above: Performed By: #### D ATA1C #### [facility] [address] [place] [address] CHEST WO CONon [...] NICOLE SIMMS Date: 2021-10-26 17:38 Normal [facility] Covid-19 PCR (CVDTB)on 10-07 SARS-CoV-2 (COVID-19) RNA JESSIE+probe Ql (Unsp spec) Not detected Normal NOT DETECTED [facility] Comment on above: Result Comment: When [...] for this test is supported by the Track Maintainer of Health and Human Service's declaration that [...] used). Performed By: #### D ATA1C #### [facility] [address] [place] [address] Dr. Jodi Oglesby PROF CHEM 8 (BAS METB)on Anion gap [Moles/Vol] 11.7 mmol/L Normal [facility] Comment on above: Performed By: #### C BC #### [facility] [address] [place] [address] Dr. Jodi Oglesby Calcium [Mass/Vol] 9.2 mg/dL Normal 8.5-10.1 [facility] Comment on above: Performed By: #### C BC #### [facility] [address] [place] [address] Dr. Jodi Oglesby Chloride [Moles/Vol] 101 mmol/L Normal 98-107 [facility] Comment on above: Performed By: #### C BC #### [facility] [address] [place] [address] Dr. Jodi Oglesby CO2 [Moles/Vol] 27.6 mmol/L Normal 21.0-32.0 [facility] Comment on above: Performed By: #### C BC #### [facility] [address] [place] [address] Dr. Jodi Oglesby Creatinine [Mass/Vol] 0.98 mg/dL Normal 0.70-1.30 [facility] Comment on above: Performed By: #### C BC #### [facility] [address] [place] [address] Dr. Jodi Oglesby EGFR-AF KITTITIAN >60 Normal >=60 [facility] Comment on above: Performed By: #### C BC #### [facility] [address] [place] [address] Dr. Jodi Oglesby EGFR-NON AF KITTITIAN >60 Normal >=60 [facility] Comment on above: Performed By: #### C BC #### [facility] [address] [address] [address] Jodi Oglesby Glucose [Mass/Vol] 119 mg/dL Critically high 74-106 [facility] Comment on above: Performed By: #### C BC #### [facility] [address] [place], [place] [address] Dr. Jodi Oglesby Potassium [Moles/Vol] 4.3 mmol/L Normal 3.5-5.1 [facility] Comment on above: Performed By: #### C BC #### [facility] [address] [address] [address] Jodi Oglesby Sodium [Moles/Vol] 136 mmol/L Normal 136-145 [facility] Comment on above: Performed By: #### C BC #### [facility] [address] [address] [address] Jodi Oglesby Urea nitrogen [Mass/Vol] 15.0 mg/dL Normal 7.0-18.0 [facility] Comment on above: Performed By: #### C BC #### [facility] [address] [address] [address] Jodi Oglesby Urea nitrogen/Creatinine [Mass ratio] 15.3 mg/mg Normal [facility] Comment on above: Performed By: #### C BC #### [facility] [address] [address] [address] Jodi Oglesby XR CLAVICLE RTon 10-26-2021 [...] osteoarthrosis. 3. Osteopenia. Electronically authenticated by: JANE Saravia: 2021-10-26 15:37 Normal [facility] XR ELBOW RT MIN 3 VIEWSon [...] DEL CHAKRABORTY Date: 2021-10-26 17:23 Normal [facility] XR HIP RT 2 3V W [...] CHARLES ALEJANDRA Date: 2021-10-26 15:40 Normal [facility] CARDIAC STRESS/REST INJE CTIONon 10-21-2021 [facility] CARDIAC STRESS/REST INJECTION Patient Name: CHICO BAKER STUDY: MYOCARDIAL PERFUSION STRESS TEST WITH LEXISCAN Performing facility: [facility], [address] [place] [address], [address], [address] Provider: Adilene Harrington MD, [facility] PCP: Dr. Jori Dunham Supervising provider: [facility]rington MD, [facility] INDICATION: AAA Pre-operative risk assessment for AAA scheduled at [facility] on D. HISTORY: Gender: M; Age: 81 y/o ; Height: 0 cm; Weight: 0 kg. HTN; Carotid disease PAD AAA Denies smoking. COMPARISON: Previous nuclear testing completed at [place]. Previous echo testing completed on 2020 at [facility]. ACCESSION NUMBER(S): [id number]; [id number]; [id number] ORDERING CLINICIAN: JUDAH HARRINGTON TECHNIQUE: ONE DAY [...] Electronically signed by: ALL HUDSON MD Normal [facility] No Panel Informationon 10-21 Normal -[facility] [address] [facility] Work Phone: COVID-19 Positive/NegativeOr dered By: Raul Quan on 10-13-2021 SARS-CoV-2 (COVID-19) N gene JESSIE+probe Ql (Resp) Negative Negative [facility] Comment on above: Testing for SARS-CoV -2 by RT-PCR This test was developed and its performance characteristics determined by [employer] ([employer]) and validated at the [facility]. This test has not been FDA [...] 10-06-2021 Basophils (Bld) [#/Vol] 0.0 10*3/uL 0.0-0.2 [facility] Basophils/100 WBC Auto (Bld) Ordered By: Raul Quan on 10-06-2021 Basophils/100 WBC (Bld) 0.7 % . [facility] Blood hemoglobin measurement (mass/volume)Ordered By: Raul Quan on 10-06-2021 Hemoglobin (Bld) [Mass/Vol] 13.1 g/dL 13.0-17.0 [facility] Blood leukocytes automated c ount (number/volume)Ordered By: Raul Quan on 10-06-2021 WBC (Bld) [#/Vol] 5.2 10*3/uL 4.5-11.0 [facility] Creatinine and Glomerular fi ltration rate.predicted panel (S/P/Bld)Ordered By: Raul Quan on 10-06-2021 Creatinine [Mass/Vol] 0.98 mg/dL 0.64-1.27 [facility] Eosinophils Auto (Bld) [#/Vo l]Ordered By: Raul Quan on 10-06-2021 Eosinophils (Bld) [#/Vol] 0.1 10*3/uL 0.0-0.45 [facility] Eosinophils/100 WBC Auto (Bl d)Ordered By: Raul Quan on 10-06-2021 Eosinophils/100 WBC (Bld) 1.3 % . [facility] Erythrocyte distribution wid th Auto (RBC) [Ratio]Ordered By: Raul Quan on 10-06-2021 Erythrocyte distribution width (RBC) [Ratio] 13.3 % 12.0-14.8 [facility] Estimated glomerular filtrat ion rate (GFR) non- AmericanOrdered By: Raul Quan on 10-06-2021 GFR/1.73 sq M.predicted among non-blacks MDRD (S/P/Bld) [Vol rate/Area] > 60 mL/Min [facility] Hematocrit Auto (Bld) [Volum e fraction]Ordered By: Raul Quan on 10-06-2021 Hematocrit (Bld) [Volume fraction] 40.4 % 38.8-50.0 [facility] - Hematology and Cell countsOrdered By: Raul Quan on 10-06-2021 Nucleated RBC/100 WBC (Bld) [Ratio] 0.0 % 0-0.5 [facility] Lymphocytes Auto (Bld) [#/Vo l]Ordered By: Raul Quan on 10-06-2021 Lymphocytes (Bld) [#/Vol] 1.0 10*3/uL 1.00-4.8 [facility] Lymphocytes/100 WBC Auto (Bl d)Ordered By: Raul Quan on 10-06-2021 Lymphocytes/100 WBC (Bld) 18.4 % . [facility] MCH Auto (RBC) [Entitic mass ]Ordered By: Raul Quan on 10-06-2021 MCH (RBC) [Entitic mass] 30.9 pg 27.5-35.2 [facility] MCHC Auto (RBC) [Mass/Vol]Or dered By: Raul Quan on 10-06-2021 MCHC (RBC) [Mass/Vol] 32.5 g/dL 32.5-35.6 [facility] MCV Auto (RBC) [Entitic vol] Ordered By: Raul Quan on 10-06-2021 MCV (RBC) [Entitic vol] 95.2 fL 83.5-101 [facility] Monocytes Auto (Bld) [#/Vol] Ordered By: Raul Quan on 10-06-2021 Monocytes (Bld) [#/Vol] 0.6 10*3/uL 0.0-0.8 [facility] Monocytes/100 WBC Auto (Bld) Ordered By: Raul Quan on 10-06-2021 Monocytes/100 WBC (Bld) 12.0 % . [facility] Neutrophils Auto (Bld) [#/Vo l]Ordered By: Raul Quan on 10-06-2021 Neutrophils (Bld) [#/Vol] 3.5 10*3/uL 1.8-7.7 [facility] Neutrophils/100 WBC Auto (Bl d)Ordered By: Raul Quan on 10-06-2021 Neutrophils/100 WBC (Bld) 67.6 % . [facility] No Panel InformationOrdered By: Raul Quan on 10-06-2021 Estimated GFR () > 60 mL/Min [facility] Comment on above: GFR estimated refere nce range: According to KDOQI guidelines, <60 ml/min/1.73m2 is sufficient to diagnose a patient with chronic kidney disease. Pharmacy Creatinine Clearance (Chem N/A [facility] Platelet mean volume Auto (B ld) [Entitic vol]Ordered By: Raul Quan on 10-06-2021 Platelet mean volume (Bld) [Entitic vol] 8.1 fL 6.6-10.1 [facility] Platelets Auto (Bld) [#/Vol] Ordered By: Raul Quan on 10-06-2021 Platelets (Bld) [#/Vol] 185 10*3/uL 150-450 [facility] RBC Auto (Bld) [#/Vol]Ordere d By: aRul Quan on 10-06-2021 RBC (Bld) [#/Vol] 4.25 10*6/uL 3.90-5.60 [facility] Serum or plasma calcium richy urement (mass/volume)Ordered By: Raul Quan on 10-06-2021 Calcium [Mass/Vol] 9.0 mg/dL 8.2-10.2 [facility] Serum or plasma chloride young surement (moles/volume)Ordered By: Raul Quan on 10-06-2021 Chloride [Moles/Vol] 101 mmol/L 95-114 [facility] Serum or plasma glucose richy urement (mass/volume)Ordered By: Raul Quan on 10-06-2021 Glucose [Mass/Vol] 187 mg/dL 70-100 [facility] Comment on above: ADA recommended refe rence range Random Glucose Reference Range is dependent on time and content of last meal. Glucose of more than 200 mg/dL in a nonstressed, ambulatory subject supports the diagnosis of Diabetes Mellitus. Serum or plasma potassium me asurement (moles/volume)Ordered By: Raul Quan on 10-06-2021 Potassium [Moles/Vol] 4.0 mmol/L 3.5-5.1 [facility] Serum or plasma sodium measu rement (moles/volume)Ordered By: Raul Quan on 10-06-2021 Sodium [Moles/Vol] 135 mmol/L 136-146 [facility] Serum or plasma total carbon dioxide measurement (moles/volume)Ordered By: Raul Quan on 10-06-2021 CO2 [Moles/Vol] 25.1 mmol/L 22.0-30.0 [facility] Serum or plasma urea nitroge n measurement (mass/volume)Ordered By: Raul Quan on 10-06-2021 Urea nitrogen [Mass/Vol] 13 mg/dL 9-23 [facility] CBC AUTO DIFFon 09-22-2021 BASO # 0.0 103/ul Normal 0.0-0.1 [facility] Comment on above: Performed By: #### C BC #### [facility] [address] [address] [address] Jodi Oglesby Basophils/100 WBC (Bld) 0.3 % Normal 0.2-2.0 [facility] Comment on above: Performed By: #### C BC #### [facility] [address] [place] [address] Dr. Joid Oglesby EO # 0.1 103/ul Normal 0.0-0.7 [facility] Comment on above: Performed By: #### C BC #### [facility] [address] [place] [address] Dr. Jodi Oglesby Eosinophils/100 WBC (Bld) 0.8 % Critically low 0.9-7.0 [facility] Comment on above: Performed By: #### C BC #### [facility] [address] [place] [address] Dr. Jodi Oglesby Erythrocyte distribution width (RBC) [Ratio] 12.5 % Normal 11.0-15.0 [facility] Comment on above: Performed By: #### C BC #### [facility] [address] [place] [address] Dr. Jodi Oglesby Hematocrit (Bld) [Volume fraction] 43.6 % Normal 42.0-54.0 [facility] Comment on above: Performed By: #### C BC #### [facility] [address] [place] [address] Dr. Jodi Oglesby Hemoglobin (Bld) [Mass/Vol] 14.1 g/dL Normal 14.0-18.0 [facility] Comment on above: Performed By: #### C BC #### [facility] [address] [place] [address] Dr. Jodi Oglesby IG # 0.03 10e3/ul Normal 0.00-0.03 [facility] Comment on above: Performed By: #### C BC #### [facility] [address] [place] [address] Dr. Jodi Oglesby IG % 0.3 % Normal 0.0-0.5 [facility] Comment on above: Performed By: #### C BC #### [facility] [address] [place] [address] Dr. Jodi Oglesby LYMPH # 1.5 103/ul Normal 1.2-3.8 [facility] Comment on above: Performed By: #### C BC #### [facility] [address] [place] [address] Dr. Jodi Oglesby Lymphocytes/100 WBC (Bld) 17.2 % Critically low 20.5-60.0 [facility] Comment on above: Performed By: #### C BC #### [facility] [address] [place] [address] Dr. Jodi Oglesby MANUAL DIFF REQ NO Normal [facility] Comment on above: Performed By: #### C BC #### [facility] [address] [place] [address] Dr. Jodi Oglesby MCH (RBC) [Entitic mass] 31.1 pg Normal 25.9-34.0 [facility] Comment on above: Performed By: #### C BC #### [facility] [address] [place] [address] Dr. Jodi Oglesby MCHC (RBC) [Mass/Vol] 32.3 g/dL Normal 29.9-35.2 [facility] Comment on above: Performed By: #### C BC #### [facility] [address] [place] [address] Dr. Jodi Oglesby MCV (RBC) [Entitic vol] 96.0 fL Critically high 80.0-94.0 [facility] Comment on above: Performed By: #### C BC #### [facility] [address] [place] [address] Dr. Jodi Oglesby MONO # 1.0 103/ul Critically high 0.3-0.8 [facility] Comment on above: Performed By: #### C BC #### [facility] [address] [place] [address] Dr. Jodi Oglesby Monocytes/100 WBC (Bld) 10.8 % Normal 1.7-12.0 [facility] Comment on above: Performed By: #### C BC #### [facility] [address] [place] [address] Dr. Jodi Oglesby NEUT # 6.2 103/ul Normal 1.4-6.5 [facility] Comment on above: Performed By: #### C BC #### [facility] [address] [place] [address] Dr. Jodi Oglesby Neutrophils/100 WBC (Bld) 70.6 % Normal 43.0-75.0 [facility] Comment on above: Performed By: #### C BC #### [facility] [address] [place] [address] Dr. Jodi Oglesby Platelet mean volume (Bld) [Entitic vol] 9.6 fL Normal 9.5-13.5 [facility] Comment on above: Performed By: #### C BC #### [facility] [address] [place] [address] Dr. Jodi Oglesby PLT 206 103/ul Normal 150-450 [facility] Comment on above: Performed By: #### C BC #### [facility] [address] [place] [address] Dr. Jodi Oglesby RBC 4.54 106/ul Critically low 4.70-6.10 [facility] Comment on above: Performed By: #### C BC #### [facility] [address] [place] [address] Dr. Jodi Oglesby WBC 8.8 103/ul Normal 4.0-11.0 [facility] Comment on above: Performed By: #### C BC #### [facility] [address] [place] [address] Dr. Jodi Oglesby PROF CHEM 8 (BAS METB)on Anion gap [Moles/Vol] 9.5 mmol/L Normal [facility] Comment on above: Performed By: #### B MP #### [facility] [address] [place] [address] Dr. Jodi Oglesby Calcium [Mass/Vol] 9.4 mg/dL Normal 8.5-10.1 [facility] Comment on above: Performed By: #### B MP #### [facility] [address] [place] [address] Dr. Jodi Oglesby Chloride [Moles/Vol] 100 mmol/L Normal 98-107 [facility] Comment on above: Performed By: #### B MP #### [facility] [address] [address] [address] Jodi Oglesby CO2 [Moles/Vol] 33.2 mmol/L Critically high 21.0-32.0 [facility] Comment on above: Performed By: #### B MP #### [facility] [address] [address] [address] Jodi Oglesby Creatinine [Mass/Vol] 0.99 mg/dL Normal 0.70-1.30 [facility] Comment on above: Performed By: #### B MP #### [facility] [address] [place] [address] Dr. Jodi Oglesby EGFR-AF KITTITIAN >60 Normal >=60 [facility] Comment on above: Performed By: #### B MP #### [facility] [address] [place] [address] Dr. Jodi Oglesby EGFR-NON AF KITTITIAN >60 Normal >=60 [facility] Comment on above: Performed By: #### B MP #### [facility] [address] [place] [address] Dr. Jodi Oglesby Glucose [Mass/Vol] 109 mg/dL Critically high 74-106 T [facility] Comment on above: Performed By: #### B MP #### [facility] [address] [place] [address] Dr. Jodi Oglesby Potassium [Moles/Vol] 4.7 mmol/L Normal 3.5-5.1 [facility] Comment on above: Performed By: #### B MP #### [facility] [address] [place] [address] Dr. Jodi Oglesby Sodium [Moles/Vol] 138 mmol/L Normal 136-145 [facility] Comment on above: Performed By: #### B MP #### [facility] [address] [place] [address] Dr. Jodi Oglesby Urea nitrogen [Mass/Vol] 17.0 mg/dL Normal 7.0-18.0 [facility] Comment on above: Performed By: #### B MP #### [facility] [address] [place] [address] Dr. Jodi Oglesby Urea nitrogen/Creatinine [Mass ratio] 17.2 mg/mg Normal [facility] Comment on above: Performed By: #### B MP #### [facility] [address] [address] [address] Jodi Oglesyb Creatinine (Bld) [Mass/Vol]O rdered By: Tamar Perea on 09-18-2021 Creatinine [Mass/Vol] 0.8 mg/dL 0.6-1.3 [facility] Comment on above: ER/ESD physician is notified/shown all ISTAT results. Critical values may be confirmed by laboratory testing if deemed necessary by ER attending doctor. No Panel InformationOrdered By: Tamar Perea on 09-18-2021 POC Estimated GFR > 60 [facility] Comment on above: GFR estimated refere nce range: According to KDOQI guidelines, <60 ml/min/1.73m2 is sufficient to diagnose a patient with chronic kidney disease. POC Estimated GFR Non- Amer > 60 [facility] CBC AUTO DIFFon 08-12-2021 BASO # 0.0 103/ul Normal 0.0-0.1 [facility] Comment on above: Performed By: #### C BC #### [facility] [address] [place] [address] Dr. Jodi Oglesby Basophils/100 WBC (Bld) 0.3 % Normal 0.2-2.0 [facility] Comment on above: Performed By: #### C BC #### [facility] [address] [address] [address] Jodi Oglesby EO # 0.1 103/ul Normal 0.0-0.7 [facility] Comment on above: Performed By: #### C BC #### [facility] [id number] Jodi Oglesby Eosinophils/100 WBC (Bld) 1.8 % Normal 0.9-7.0 [facility] Comment on above: Performed By: #### C BC #### [facility] [address] [address] [address] Jodi Oglesby Erythrocyte distribution width (RBC) [Ratio] 12.6 % Normal 11.0-15.0 [facility] Comment on above: Performed By: #### C BC #### [facility] [address] [place] [address] Dr. Jodi Oglesby Hematocrit (Bld) [Volume fraction] 40.9 % Critically low 42.0-54.0 [facility] Comment on above: Performed By: #### C BC #### [facility] [address] [place] [address] Dr. Jodi Oglesby Hemoglobin (Bld) [Mass/Vol] 13.4 g/dL Critically low 14.0-18.0 [facility] Comment on above: Performed By: #### C BC #### [facility] [address] [place] [address] Dr. Jodi Oglesby IG # 0.03 10e3/ul Normal 0.00-0.03 [facility] Comment on above: Performed By: #### C BC #### [facility] [address] [place] [address] Dr. Jodi Oglesby IG % 0.4 % Normal 0.0-0.5 [facility] Comment on above: Performed By: #### C BC #### [facility] [address] [place] [address] Dr. Jodi Oglesby LYMPH # 1.4 103/ul Normal 1.2-3.8 [facility] Comment on above: Performed By: #### C BC #### [facility] [address] [place] [address] Dr. Jodi Oglesby Lymphocytes/100 WBC (Bld) 18.6 % Critically low 20.5-60.0 [facility] Comment on above: Performed By: #### C BC #### [facility] [address] [place] [address] Dr. Jodi Oglesby MCH (RBC) [Entitic mass] 31.5 pg Normal 25.9-34.0 [facility] Comment on above: Performed By: #### C BC #### [facility] [address] [place] [address] Dr. Jodi Oglesby MCHC (RBC) [Mass/Vol] 32.8 g/dL Normal 29.9-35.2 [facility] Comment on above: Performed By: #### C BC #### [facility] [address] [place] [address] Dr. Jodi Oglesby MCV (RBC) [Entitic vol] 96.0 fL Critically high 80.0-94.0 [facility] Comment on above: Performed By: #### C BC #### [facility] [address] [place] [address] Dr. Jodi Oglesby MONO # 0.7 103/ul Normal 0.3-0.8 [facility] Comment on above: Performed By: #### C BC #### [facility] [address] [place] [address] Dr. Jodi Oglesby Monocytes/100 WBC (Bld) 9.7 % Normal 1.7-12.0 [facility] Comment on above: Performed By: #### C BC #### [facility] [address] [place] [address] Dr. Jodi Oglesby NEUT # 5.1 103/ul Normal 1.4-6.5 [facility] Comment on above: Performed By: #### C BC #### [facility] [address] [place] [address] Dr. Jodi Oglesby Neutrophils/100 WBC (Bld) 69.2 % Normal 43.0-75.0 [facility] Comment on above: Performed By: #### C BC #### [facility] [address] [place] [address] Dr. Jodi Oglesby Platelet mean volume (Bld) [Entitic vol] 9.8 fL Normal 9.5-13.5 [facility] Comment on above: Performed By: #### C BC #### [facility] [address] [place] [address] Dr. Jodi Oglesby PLT 195 103/ul Normal 150-450 [facility] Comment on above: Performed By: #### C BC #### [facility] [address] [place] [address] Dr. Jodi Oglesby RBC 4.26 106/ul Critically low 4.70-6.10 [facility] Comment on above: Performed By: #### C BC #### [facility] [address] [place] [address] Dr. Jodi Oglesby WBC 7.4 103/ul Normal 4.0-11.0 [facility] Comment on above: Performed By: #### C BC #### [facility] [address] [place] [address] Dr. Jodi Oglesby ASHLEY - TSHon 08-12-2021 TSH 1.879 uIU/mL Normal 0.358-3.74 0 [facility] Comment on above: Performed By: #### D LULU DATBMP #### [facility] [address] [place] [address] Dr. Jodi Oglesby TSH RANGE SEE BELOW Normal [facility] Comment on above: Result Comment: <0.3 4 UIU/ml HYPERTHYROID 0.34-5.60 UIU/ml EUTHYROID >5.60 UIU/ml HYPOTHYROID Performed By: #### D LULU DATBMP #### [facility] [address] [place] [address] Dr. Jodi Oglesby ASHLEY- BMP WITH LIPIDon 2021 Anion gap [Moles/Vol] 11.4 mmol/L Normal [facility] Comment on above: Performed By: #### D LULU, DATBMP #### [facility] [address] [place] [address] Dr. Jodi Oglesby Calcium [Mass/Vol] 8.7 mg/dL Normal 8.5-10.1 [facility] Comment on above: Performed By: #### D ATTKENDELL, DATBMP #### [facility] [address] [place] [address] Dr. Jodi Oglesby Chloride [Moles/Vol] 105 mmol/L Normal 98-107 [facility] Comment on above: Performed By: #### D ATTKENDELL, DATBMP #### [facility] [address] [place] [address] Dr. Jodi Oglesby Cholesterol [Mass/Vol] 113 mg/dL Normal <=200 [facility] Comment on above: Performed By: #### D ATTKENDELL, DATBMP #### [facility] [address] [address] [address] Jodi Oglesby Cholesterol in HDL [Mass/Vol] 47 mg/dL Normal 40-60 [facility] Comment on above: Performed By: #### D ATTSH, DATBMP #### [facility] [address] [address] [address] Jodi Oglesby Cholesterol in LDL [Mass/Vol] 58.0 mg/dL Normal [facility] Comment on above: Performed By: #### D ATTSH, DATBMP #### [facility] [address] [address] [address] Jodi Oglesby CO2 [Moles/Vol] 29.0 mmol/L Normal 21.0-32.0 [facility] Comment on above: Performed By: #### D ATTSH, DATBMP #### [facility] [address] [address] [address] Jodi Oglesby Creatinine [Mass/Vol] 0.99 mg/dL Normal 0.70-1.30 [facility] Comment on above: Performed By: #### D ATTSH, DATBMP #### [facility] [address] [address] [address] Jodi Oglesby EGFR-AF KITTITIAN >60 Normal >=60 [facility] Comment on above: Performed By: #### D ATTSH, DATBMP #### [facility] [address] [address] [address] Jodi Oglesby EGFR-NON AF KITTITIAN >60 Normal >=60 [facility] Comment on above: Performed By: #### D ATTSH, DATBMP #### [facility] [address] [address] [address] Jodi Oglesby Glucose [Mass/Vol] 116 mg/dL Critically high 74-106 [facility] Comment on above: Performed By: #### D ATTSH, DATBMP #### [facility] [address] [address] [address] Jodi Oglesby HDL NORMAL > or = 60 mg/dl - LO W CARDIOVASCULAR RISK <40 mg/dl - HIGH CARDIOVASCULAR RISK Normal [facility] Comment on above: Performed By: #### D ATTSH, DATBMP #### [facility] [address] [address] [address] Jdoi Oglesby LDL CALC NORMAL SEE BELOW Normal [facility] Comment on above: Result Comment: <100 mg/dl OPTIMAL 100 - 129 mg/dl NEAR OR ABOVE OPTIMAL 130 - 159 mg/dl BORDERLINE HIGH 160 - 189 mg/dl HIGH >190 mg/dl VERY HIGH Performed By: #### D ATTSH, DATBMP #### [facility] [address] [address] [address] Jodi Oglesby Potassium [Moles/Vol] 4.4 mmol/L Normal 3.5-5.1 [facility] Comment on above: Performed By: #### D ATTKENDELL, DATBMP #### [facility] [address] [place] [address] Dr. Jodi Oglesby Sodium [Moles/Vol] 141 mmol/L Normal 136-145 [facility] Comment on above: Performed By: #### D ATTSH, DATBMP #### [facility] [address] [address] [address] Jodi Oglesby Triglyceride [Mass/Vol] 40 mg/dL Normal <=150 [facility] Comment on above: Performed By: #### D ATTKENDELL, DATBMP #### [facility] [address] [place] [address] Dr. Jodi Oglesby Urea nitrogen [Mass/Vol] 16.0 mg/dL Normal 7.0-18.0 [facility] Comment on above: Performed By: #### D ATTSH, DATBMP #### [facility] [address] [place] [address] Dr. Jodi Oglesby Urea nitrogen/Creatinine [Mass ratio] 16.2 mg/mg Normal [facility] Comment on above: Performed By: #### D ATTSH, DATBMP #### [facility] [address] [place] [address] Dr. Jodi Oglesby VLDL CALC 8.0 mg/dL Normal [facility] Comment on above: Performed By: #### D ATTSH, DATBMP #### [facility] [address] [address] [address] Jodi Oglesby GLYCOHEMOGLOBIN A1Con 2021 ADA RECOMMENDATION SEE BELOW Normal [facility] Comment on above: Result Comment: ADA RECOMMENDED LIMIT 4.0 - 6.0 ADA THERAPEUTIC TARGET < 7.0 ACTION SUGGESTED > 7.0 Performed By: #### D ATA1C #### [facility] [address] [address] [address] Jodi Oglesby Glucose [Mass/Vol] 131 mg/dL Normal [facility] Comment on above: Performed By: #### D ATA1C #### [facility] [address] [address] [address] Jodi Oglesby HbA1c (Bld) [Mass fraction] 6.2 % Normal 4.5-6.2 [facility] Comment on above: Performed By: #### D ATA1C #### [facility] [address] [address] [address] Jodi Oglesby CNOVon 12-11-2020 [facility]AY[facility] Office Visit ([facility] ) -- CHICO BAKER ([id number]) 1940 M Date Time Provider Department 12/11/20 10:45 AM POWER CATHERINE During your visit today, we recorded the following information about you: Pulse Blood pressure Weight Height 60/minute 122/78 67.6 kg 1.702 m Power Catherine MD 12/11/2020 11:17 AM [facility] OUTPATIENT VISIT DATE December 11, 2020 OUTPATIENT VISIT TYPE EST PRIMARY CARE PHYSICIAN: Shailesh Dunham (Jere) [address] [place] [address] REFERRING PHYSICIAN Power Catherine [address] [place] [id number] CHIEF COMPLAINT: Patient presents with: Established Patient [...] Power Catherine MD Referring Provider: POWER CATHERINE [[id number]] Allergies As of Date: 12/11/2020 Noted Allergy Reaction SHALINI INHIBITORS 05/09/2015 16 - Unknown GADOLINIUM-CONTAINING CONTRAST ME*05/09/2015 16 - Unknown TETANUS VACCINES AND TOXOID 05/16/2015 16 - Unknown Date Reviewed: 12/11/2020 Reviewed by: Harika Menjivar - Fully Assessed Reason for Visit: Established Patient [175] Follow Up [171] 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 - nitroglycerin sublingual (NITROQUICK) 0.3 mg SL tablet (more content not included)... Normal [facility] Jessa 10-30-2020 [facility] Telephone ([facility]) -- SAMUELCHICO ([id number]) 1940 M Date Time Provider Department 10/30/20 [...] for physician to co-sign Thank you Sheri Arora 11/04/2020 4:04 PM Signed Spoke to [...] [I71.4] Order(s):US ABD [facility]ORTA [facility] [[id number]] Order #: [id number] FUTURE Prescriptions as of 11/04/2020 - aspirin, [...] Status:Closed by SHERI MOLINA on 11/04/20 Normal [facility] Vital Signs Date Time Vital Sign Value Performing Clinician Facility 09-03-2023 08:49-0400 Body height 170.18 cm DO [employer] Work Phone: [facility] 09-03-2023 08:49-0400 Body mass index (BMI) [Ratio] 21.9 kg/m2 DO Shailesh Ball Work Phone: [facility] 09-03-2023 08:49-0400 Body weight 63.5 kg DO Shailesh Ball Work Phone: [facility] 09-03-2023 08:49-0400 Diastolic blood pressure 58 mm[Hg] DO Shailesh Ball Work Phone: [facility] 09-03-2023 08:49-0400 Heart rate 63 /min DO Shailesh Ball Work Phone: [facility] 09-03-2023 08:49-0400 Respiratory rate 18 /min DO Shailesh Ball Work Phone: [facility] 09-03-2023 08:49-0400 SaO2% (BldA) [Mass fraction] 97 % DO Shailesh Ball Work Phone: [facility] 09-03-2023 08:49-0400 Systolic blood pressure 110 mm[Hg] DO Shailesh Ball Work Phone: [facility] 08-27-2023 08:33-0400 Body height 170.18 cm DO Shailesh Ball Work Phone: [facility] 08-27-2023 08:33-0400 Body mass index (BMI) [Ratio] 21.7 kg/m2 DO Shailesh Ball Work Phone: [facility] 08-27-2023 08:33-0400 Body weight 62.76 kg DO Shailesh Ball Work Phone: [facility] 08-27-2023 08:33-0400 Diastolic blood pressure 65 mm[Hg] DO Shailesh Ball Work Phone: [facility] 08-27-2023 08:33-0400 Heart rate 64 /min DO Shailesh Ball Work Phone: [facility] 08-27-2023 08:33-0400 Respiratory rate 12 /min DO Shailesh Ball Work Phone: [facility] 08-27-2023 08:33-0400 Systolic blood pressure 132 mm[Hg] DO Shailesh Ball Work Phone: [facility] 08-19-2023 11:18-0400 Body height 170.18 cm DO Shailesh Ball Work Phone: [facility] 08-19-2023 11:18-0400 Body mass index (BMI) [Ratio] 21.9 kg/m2 DO Shailesh Ball Work Phone: [facility] 08-19-2023 11:18-0400 Body weight 63.5 kg DO Shailesh Ball Work Phone: [facility] 08-19-2023 11:18-0400 Diastolic blood pressure 56 mm[Hg] DO Shailesh Ball Work Phone: [facility] 08-19-2023 11:18-0400 Heart rate 60 /min DO Shailesh Ball Work Phone: [facility] 08-19-2023 11:18-0400 Respiratory rate 18 /min DO Shailesh Ball Work Phone: [facility] 08-19-2023 11:18-0400 SaO2% (BldA) [Mass fraction] 98 % DO Shailesh Ball Work Phone: [facility] 08-19-2023 11:18-0400 Systolic blood pressure 102 mm[Hg] DO Shailesh Ball Work Phone: [facility] 07-05-2023 10:23-0400 Body height 170.18 cm DO Shailesh Ball Work Phone: [facility] 07-05-2023 10:23-0400 Body mass index (BMI) [Ratio] 21.4 kg/m2 DO Shailesh Ball Work Phone: [facility] 07-05-2023 10:23-0400 Body temperature 97 [degF] DO Shailesh Ball Work Phone: [facility] 07-05-2023 10:23-0400 Body weight 62.14 kg DO Shailesh Ball Work Phone: [facility] 07-05-2023 10:23-0400 Diastolic blood pressure 48 mm[Hg] DO Shailesh Ball Work Phone: [facility] 07-05-2023 10:230400 Heart rate 60 /min DO Shailesh Ball Work Phone: [facility] 07-05-2023 10:23-0400 SaO2% (BldA) [Mass fraction] 97 % DO Shailesh Ball Work Phone: [facility] 07-05-2023 10:23-0400 Systolic blood pressure 96 mm[Hg] DO Shailesh Ball Work Phone: [facility] 06-22-2023 10:010400 Body height 170.18 cm DO Shailesh Ball Work Phone: [facility] 06-22-2023 10:01-0400 Body mass index (BMI) [Ratio] 21.5 kg/m2 DO Shailesh Ball Work Phone: [facility] 06-22-2023 10:010400 Body weight 62.36 kg DO Shailesh Ball Work Phone: [facility] 06-22-2023 10:01-0400 Diastolic blood pressure 69 mm[Hg] DO Shailesh Ball Work Phone: [facility] 06-22-2023 10:01-0400 Heart rate 64 /min DO Shailesh Ball Work Phone: [facility] 06-22-2023 10:01-0400 Respiratory rate 12 /min DO Shailesh Ball Work Phone: [facility] 06-22-2023 10:01-0400 Systolic blood pressure 95 mm[Hg] DO Shailesh Ball Work Phone: [facility] 05-04-2023 11:14-0500 Blood Pressure Location Ivelisse Hassan [facility] 05-04-2023 11:14-0500 Diastolic blood pressure 46 mm[Hg] Ivelisse Lue [facility] 05-04-2023 11:14-0500 Heart rate 63 /min Ivelisse Lue [facility] 05-04-2023 11:14-0500 Systolic blood pressure 116 mm[Hg] Ivelisse Lue [facility] 04-14-2023 10:15-0500 Body height 170.18 cm Shailesh Ball Other [facility] Other 04-14-2023 10:15-0500 Body mass index (BMI) [Ratio] 21.64 kg/m2 Shailesh Ball Other [facility] Other 04-14-2023 10:15-0500 Body weight 62.69 kg Shailesh Ball Other [facility] Other 04-14-2023 10:15-0500 Diastolic blood pressure 58 mm[Hg] Shailesh Ball Other [facility] Other 04-14-2023 10:15-0500 Respiratory rate 12 /min Shailesh Ball Other [facility] Other 04-14-2023 10:15-0500 Systolic blood pressure 118 mm[Hg] Shailesh Ball Other [facility] Other 03-29-2023 10:00-0500 Body height 170.18 cm Shailesh Ball Other [facility] 03-29-2023 10:00-0500 Body mass index (BMI) [Ratio] 21.8 kg/m2 Shailesh Ball Other [facility] Other 03-29-2023 10:00-0500 Body weight 63.14 kg Shailesh Ball Other [facility] 03-29-2023 10:00-0500 Diastolic blood pressure 74 mm[Hg] Shailesh Ball Other [facility] 03-29-2023 10:00-0500 Respiratory rate 12 /min Shailesh Ball Other [facility] Other 03-29-2023 10:00-0500 Systolic blood pressure 132 mm[Hg] Shailesh Ball Other [facility] 01-13-2023 08:49-0500 Blood Pressure Location Ivelisse Lue [facility] 01-13-2023 08:49-0500 Diastolic blood pressure 74 mm[Hg] Ivelisse Lue [facility] 01-13-2023 08:49-0500 Heart rate 68 /min Ivelisse Lue [facility] 01-13-2023 08:49-0500 Respiratory rate 16 /min Ivelisse Lue [facility] 01-13-2023 08:49-0500 Systolic blood pressure 156 mm[Hg] Ivelisse Lue [facility] 11-10-2022 10:30-0400 Body height 170.18 cm Raul Quan Other [facility] Other 11-10-2022 10:30-0400 Body mass index (BMI) [Ratio] 20.99 kg/m2 Raul Quan Other [facility] Other 11-10-2022 10:30-0400 Body temperature 97.8 [degF] Raul Avelina Other [facility] Other 11-10-2022 10:30-0400 Body weight 60.78 kg Raul Avelina Other [facility] Other 11-10-2022 10:30-0400 Diastolic blood pressure 64 mm[Hg] Raul Quan Other [facility] Other 11-10-2022 10:30-0400 SaO2% (BldA) [Mass fraction] 98 % Raulchristiana Quan Other [facility] Other 11-10-2022 10:30-0400 Systolic blood pressure 110 mm[Hg] Raul Quan Other [facility] Other 10-07-2022 08:49-0400 Blood Pressure Location Ivelisse Lue [facility] 10-07-2022 08:49-0400 Diastolic blood pressure 74 mm[Hg] Ivelisse Lue [facility] 10-07-2022 08:49-0400 Heart rate 75 /min Ivelisse Lue [facility] 10-07-2022 08:49-0400 Systolic blood pressure 139 mm[Hg] Ivelisse Lue [facility] 08-04-2022 11:15-0400 Body height 170.18 cm Raul Quan Other [facility] Other 08-04-2022 11:15-0400 Body mass index (BMI) [Ratio] 21.77 kg/m2 Raul Quan Other [facility] Other 08-04-2022 11:15-0400 Body temperature 97.8 [degF] Raul Quan Other [facility] Other 08-04-2022 11:15-0400 Body weight 63.05 kg Raul Quan Other [facility] Other 08-04-2022 11:15-0400 Diastolic blood pressure 68 mm[Hg] Raul Quan Other [facility] Other 08-04-2022 11:15-0400 SaO2% (BldA) [Mass fraction] 97 % Raul Quan Other [facility] Other 08-04-2022 11:15-0400 Systolic blood pressure 108 mm[Hg] Raul Quan Other [facility] Other 07-09-2022 08:00-0400 Body temperature 98.6 [degF] DO Shailesh Ball Work Phone: [facility] 07-09-2022 08:00-0400 Diastolic blood pressure 72 mm[Hg] DO Shailesh Ball Work Phone: [facility] 07-09-2022 08:00-0400 Heart rate 69 /min DO Shailesh Ball Work Phone: [facility] 07-09-2022 08:00-0400 Respiratory rate 16 /min DO Shailesh Ball Work Phone: [facility] 07-09-2022 08:00-0400 SaO2% (BldA) [Mass fraction] 97 % DO Shailesh Ball Work Phone: [facility] 07-09-2022 08:00-0400 Systolic blood pressure 154 mm[Hg] DO Shailesh Ball Work Phone: [facility] 07-09-2022 06:00-0400 Body weight 65.8 kg DO Shailesh Ball Work Phone: [facility] 07-08-2022 10:52-0400 Inhaled oxygen flow rate 8 L/min DO Shailesh Ball Work Phone: [facility] 07-08-2022 08:34-0400 Body height 167.64 cm DO Shailesh Ball Work Phone: [facility] 07-08-2022 08:34-0400 Body mass index (BMI) [Ratio] 22.7 kg/m2 DO Shailesh Ball Work Phone: [facility] 06-24-2022 09:27-0400 Blood Pressure Location Ivelisse Lue [facility] 06-24-2022 09:27-0400 Diastolic blood pressure 75 mm[Hg] Ivelisse Lue [facility] 06-24-2022 09:27-0400 Heart rate 66 /min Ivelisse Lue [facility] 06-24-2022 09:27-0400 Respiratory rate 16 /min Ivelisse Lue [facility] 06-24-2022 09:27-0400 Systolic blood pressure 120 mm[Hg] Ivelisse Lue [facility] 05-21-2022 09:30-0400 Body height 170.18 cm Shailesh Ball Other [facility] Other 05-21-2022 09:30-0400 Body mass index (BMI) [Ratio] 21.8 kg/m2 Shailesh Ball Other [facility] Other 05-21-2022 09:30-0400 Body weight 63.14 kg Shailesh Ball Other [facility] Other 05-21-2022 09:30-0400 Diastolic blood pressure 73 mm[Hg] Shailesh Ball Other [facility] Other 05-21-2022 09:30-0400 Respiratory rate 12 /min Shailesh Ball Other [facility] Other 05-21-2022 09:30-0400 Systolic blood pressure 121 mm[Hg] Shailesh Ball Other [facility] Other 05-19-2022 11:00-0400 Body height 170.18 cm Tamar Perea Other [facility] Other 05-19-2022 11:00-0400 Body mass index (BMI) [Ratio] 22.02 kg/m2 Tamar Perea Other [facility] Other 05-19-2022 11:00-0400 Body temperature 97.5 [degF] Tamar Perea Other [facility] Other 05-19-2022 11:00-0400 Body weight 63.78 kg Tamar Brit Other [facility] Other 05-19-2022 11:00-0400 Diastolic blood pressure 76 mm[Hg] Tamar Perea Other [facility] Other 05-19-2022 11:00-0400 SaO2% (BldA) [Mass fraction] 98 % Tamar Perea Other [facility] Other 05-19-2022 11:00-0400 Systolic blood pressure 148 mm[Hg] Tamar Perea Other [facility] Other 04-15-2022 08:57-0500 Blood Pressure Location Ivelisse Lue [facility] 04-15-2022 08:57-0500 Diastolic blood pressure 78 mm[Hg] Ivelisse Lue [facility] 04-15-2022 08:57-0500 Heart rate 68 /min Ivelisse Lue [facility] 04-15-2022 08:57-0500 Respiratory rate 16 /min Ivelisse Lue [facility] 04-15-2022 08:57-0500 Systolic blood pressure 122 mm[Hg] Ivelisse Lue [facility] 03-10-2022 11:30-0500 Body height 170.18 cm Raul Quan Other [facility] Other 03-10-2022 11:30-0500 Body mass index (BMI) [Ratio] 21.2 kg/m2 Raul Quan Other [facility] Other 03-10-2022 11:30-0500 Body temperature 97.8 [degF] Raul Quan Other [facility] Other 03-10-2022 11:30-0500 Body weight 61.42 kg Raul Quan Other [facility] Other 03-10-2022 11:30-0500 Diastolic blood pressure 64 mm[Hg] Raul Lawrencerer Other [facility] Other 03-10-2022 11:30-0500 SaO2% (BldA) [Mass fraction] 98 % Raul Lawrencerer Other [facility] Other 03-10-2022 11:30-0500 Systolic blood pressure 108 mm[Hg] Raul Lawrencerer Other [facility] Other 02-25-2022 11:09-0500 Blood Pressure Location IVA ARASH [facility] 02-25-2022 11:09-0500 Diastolic blood pressure 63 mm[Hg] IVA ARASH [facility] 02-25-2022 11:09-0500 Heart rate 64 /min IVA ARASH [facility] 02-25-2022 11:09-0500 Systolic blood pressure 105 mm[Hg] IVA ARASH [facility] 02-18-2022 14:12-0500 Blood Pressure Location IVA ARASH [facility] 02-18-2022 14:12-0500 Diastolic blood pressure 83 mm[Hg] IVA ARASH [facility] 02-18-2022 14:12-0500 Heart rate 70 /min IVA ARASH [facility] 02-18-2022 14:12-0500 Systolic blood pressure 142 mm[Hg] IVA ANTOINE [facility] 02-11-2022 08:42-0500 Blood Pressure Location Ivelisse Lue [facility] 02-11-2022 08:42-0500 Diastolic blood pressure 73 mm[Hg] Ivelisse Lue [facility] 02-11-2022 08:42-0500 Heart rate 68 /min [facility]velisse Lue [facility] [facility] 02-11-2022 08:42-0500 Respiratory rate 16 /min Ivelisse Lue [facility] 02-11-2022 08:42-0500 Systolic blood pressure 150 mm[Hg] Ivelisse Lue [facility] 02-05-2022 08:00-0500 Body temperature 99.1 [degF] DO Shailesh Ball Work Phone: [facility] 02-05-2022 08:00-0500 Diastolic blood pressure 76 mm[Hg] DO Shailesh Ball Work Phone: [facility] 02-05-2022 08:00-0500 Heart rate 78 /min DO Shailesh Ball Work Phone: [facility] 02-05-2022 08:00-0500 Respiratory rate 16 /min DO Shailesh Ball Work Phone: [facility] 02-05-2022 08:00-0500 SaO2% (BldA) [Mass fraction] 95 % DO Shailesh Ball Work Phone: [facility] 02-05-2022 08:00-0500 Systolic blood pressure 168 mm[Hg] DO Shailesh Ball Work Phone: [facility] 02-05-2022 03:21-0500 Body weight 64.1 kg DO Shailesh Ball Work Phone: [facility] 02-04-2022 11:43-0500 Inhaled oxygen flow rate 6 L/min DO Shailesh Ball Work Phone: [facility] 02-04-2022 09:31-0500 Body height 167.64 cm DO Shailesh Ball Work Phone: [facility] 02-04-2022 09:31-0500 Body mass index (BMI) [Ratio] 23.3 kg/m2 DO Shailesh Ball Work Phone: [facility] 01-20-2022 12:30-0500 Body height 170.18 cm Raul Quan Other [employer] Other 01-20-2022 12:30-0500 Body mass index (BMI) [Ratio] 21.92 kg/m2 Raul Quan Other [facility] Other 01-20-2022 12:30-0500 Body temperature 97.7 [degF] Raul Quan Other [facility] [employer] Other 01-20-2022 12:30-0500 Body weight 63.5 kg Raul Quan Other [facility] Other 01-20-2022 12:30-0500 Diastolic blood pressure 64 mm[Hg] Raul Quan Other [employer] Other 01-20-2022 12:30-0500 SaO2% (BldA) [Mass fraction] 99 % Raul Quna Other [facility] Other 01-20-2022 12:30-0500 Systolic blood pressure 116 mm[Hg] Raul Buehrer Other [facility] Other 01-05-2022 11:15-0400 Body height 170.18 cm Raul Buehrer Other [facility] Other 01-05-2022 11:15-0400 Body mass index (BMI) [Ratio] 21.92 kg/m2 Raul Buehrer Other [facility] Other 01-05-2022 11:15-0400 Body temperature 96 [degF] Raul Buehrer Other [employer] [facility] Other 01-05-2022 11:15-0400 Body weight 63.5 kg Raul Buehrer Other [employer] [facility] Other 01-05-2022 11:15-0400 Diastolic blood pressure 58 mm[Hg] Raul Buehrer Other [employer] Other 01-05-2022 11:15-0400 SaO2% (BldA) [Mass fraction] 99 % Raul Buehrer Other [employer] [facility] Other 01-05-2022 11:15-0400 Systolic blood pressure 100 mm[Hg] Raul Buehrer Other [employer] Other 11-24-2021 12:30-0400 Body height 170.18 cm Tamar Perea Other [employer] Other 11-24-2021 12:30-0400 Body mass index (BMI) [Ratio] 21.92 kg/m2 Tamar Perea Other [employer] Other 11-24-2021 12:30-0400 Body temperature 97.5 [degF] Tamar Perea Other [facility] [employer] Other 11-24-2021 12:30-0400 Body weight 63.5 kg Tamar Perea Other [facility] [employer] Other 11-24-2021 12:30-0400 Diastolic blood pressure 50 mm[Hg] Tamar Perea Other [employer] Other 11-24-2021 12:30-0400 SaO2% (BldA) [Mass fraction] 98 % Tamar Perea Other [facility] [employer] Other 11-24-2021 12:30-0400 Systolic blood pressure 96 mm[Hg] Tamar Perea Other [facility] [employer] Other 10-21-2021 07:30-0400 50 1 Shailesh E Ball Work Phone: [facility] [address] [place] Work Phone: Comment on above: [id number] 10-15-2021 08:27-0400 Body height 167.64 cm DO Shailesh Ball Work Phone: [facility] 10-15-2021 08:27-0400 Body temperature 97.7 [degF] DO Shailesh Ball Work Phone: [facility] 10-15-2021 08:27-0400 Body weight 66 kg DO Shailesh Ball Work Phone: [facility] 10-15-2021 08:27-0400 Diastolic blood pressure 75 mm[Hg] DO Shailesh Ball Work Phone: [facility] 10-15-2021 08:27-0400 Heart rate 73 /min DO Shailesh Ball Work Phone: [facility] 10-15-2021 08:27-0400 Respiratory rate 16 /min DO Shailesh Ball Work Phone: [facility] 10-15-2021 08:27-0400 SaO2% (BldA) [Mass fraction] 97 % DO Shailesh Ball Work Phone: [facility] 10-15-2021 08:27-0400 Systolic blood pressure 143 mm[Hg] DO Shailesh Ball Work Phone: [facility] 09-30-2021 13:30-0400 Body height 170.18 cm Tamar Brit Other [employer] Other 09-30-2021 13:30-0400 Body mass index (BMI) [Ratio] 24.27 kg/m2 Tamar Perea Other [employer] Other 09-30-2021 13:30-0400 Body temperature 97.4 [degF] Tamar Martinezmoy Other [employer] Other 09-30-2021 13:30-0400 Body weight 70.31 kg Tamar Martinezmoy Other [employer] Other 09-30-2021 13:30-0400 Diastolic blood pressure 70 mm[Hg] Tamar Perea Other [employer] Other 09-30-2021 13:30-0400 SaO2% (BldA) [Mass fraction] 98 % Tamar Perea Other [employer] Other 09-30-2021 13:30-0400 Systolic blood pressure 140 mm[Hg] Tamar Perea Other [employer] Other 09-15-2021 11:00-0400 Body height 170.18 cm Tamar Perea Other [employer] Other 09-15-2021 11:00-0400 Body mass index (BMI) [Ratio] 24.27 kg/m2 Tamar Perea Other [employer] [facility] Other 09-15-2021 11:00-0400 Body temperature 96.4 [degF] Tamar Perea Other [facility] Other 09-15-2021 11:00-0400 Body weight 70.31 kg Tamar Perea Other [facility] Other 09-15-2021 11:00-0400 Diastolic blood pressure 72 mm[Hg] Tamar Perea Other [facility] Other 09-15-2021 11:00-0400 SaO2% (BldA) [Mass fraction] 98 % Tamar Perea Other [employer] [facility] Other 09-15-2021 11:00-0400 Systolic blood pressure 138 mm[Hg] Tamar Perea Other [employer] [facility] Other 07-28-2021 10:45-0400 Body height 170.18 cm Raul Quan Other [employer] Other 07-28-2021 10:45-0400 Body mass index (BMI) [Ratio] 24.27 kg/m2 Raul Quan Other [employer] [facility] Other 07-28-2021 10:45-0400 Body temperature 96.6 [degF] Raul Quan Other [employer] Other 07-28-2021 10:45-0400 Body weight 70.31 kg Raul Osoriojakub Other [employer] [facility] Other 07-28-2021 10:45-0400 Diastolic blood pressure 78 mm[Hg] Raul Lawrencemary ann Other [employer] Other 07-28-2021 10:45-0400 SaO2% (BldA) [Mass fraction] 98 % Raul Lawrencemary ann Other [facility] Other 07-28-2021 10:45-0400 Systolic blood pressure 190 mm[Hg] Raul Lawrencemary ann Other [employer] Other Encounters Encounter Date Encounter Type Care Provider Facility Start: 10-12-2023 End: 10-13-2023 Evaluation and management of inpatient [facility] Start: 10-06-2023 End: 10-06-2023 ambulatory [facility] Start: 10-06-2023 End: 10-06-2023 ambulatory [facility] Start: 09-17-2023 ambulatory [facility] Start: 09-03-2023 End: 09-03-2023 ambulatory DO Shailesh Ball Work Phone: [facility] Work Phone: Start: 09-03-2023 End: 09-03-2023 Patient encounter procedure DO Shailesh Ball Work Phone: [facility] Work Phone: Start: 08-31-2023 End: 08-31-2023 Patient encounter procedure DO Shailesh Ball Work Phone: [facility] Work Phone: Start: 08-31-2023 End: 08-31-2023 ambulatory DO Shailesh Ball Work Phone: [facility] Work Phone: Start: 08-27-2023 End: 08-27-2023 ambulatory DO Shailesh Ball Work Phone: [facility] Work Phone: Start: 08-27-2023 End: 08-27-2023 Patient encounter procedure DO Shailesh Ball Work Phone: [facility] Work Phone: Start: 08-19-2023 End: 08-19-2023 ambulatory DO Shailesh Ball Work Phone: [facility] Work Phone: Start: 08-19-2023 End: 08-19-2023 Patient encounter procedure DO Shailesh Ball Work Phone: [facility] Work Phone: Start: 08-18-2023 End: 08-18-2023 ambulatory AMBER Melgoza [facility] Start: 08-18-2023 End: 08-18-2023 ambulatory AMBER Melgoza [facility] Start: 08-17-2023 End: 08-17-2023 ambulatory MARIA EUGENIA Vazquez [facility] Start: 08-13-2023 End: 08-13-2023 ambulatory MARIA EUGENIA BERRY [facility] Start: 08-04-2023 End: 08-04-2023 ambulatory MARIA EUGENIA Vazquez [facility] Start: 07-27-2023 End: 07-27-2023 ambulatory CLIFTON CORREA Not Available Start: 07-05-2023 End: 07-05-2023 ambulatory DO Shailesh Ball Work Phone: [facility] Work Phone: Start: 07-05-2023 End: 07-05-2023 Patient encounter procedure DO Shailesh Ball Work Phone: [facility] V[facility] Surgery Work Phone: Start: 06-22-2023 End: 06-22-2023 ambulatory DO Shailesh Enrico Work Phone: [facility] Work Phone: Start: 06-22-2023 End: 06-22-2023 Patient encounter procedure DO Shailesh Dunham Work Phone: [facility] Work Phone: Start: 06-16-2023 End: 06-16-2023 Patient encounter procedure DO Shailesh Dunham Work Phone: [facility] [place] Work Phone: Start: 06-16-2023 End: 06-16-2023 ambulatory DO Shailesh Dunham Work Phone: [facility] Work Phone: Start: 05-04-2023 End: 05-05-2023 ambulatory Ivelisse Hassan Facility:[facility] Start: 05-04-2023 End: 05-04-2023 Lab Drop off Ivelisse Hassan [facility] Start: 05-04-2023 End: 05-04-2023 Patient encounter procedure Ivelisse Hassan [facility] Start: 04-28-2023 End: 04-29-2023 ambulatory Ivelisse Hassan Facility:CD:[id number] Start: 04-26-2023 Non-patient / Non-visit DO Ryder raines Ball Work Phone: [facility] Work Phone: Start: 04-20-2023 Non-patient / Non-visit DO Ryder raines Ball Work Phone: [facility] Work Phone: Start: 04-20-2023 Non-patient / Non-visit DO Ryder Dunham [facility] Work [facility] Start: 04-14-2023 End: 04-14-2023 ambulatory Shailesh Dunham Other [facility] Other Start: 04-14-2023 Encounter for other preprocedural examination Shailesh Dunham [facility] Start: 04-14-2023 Office outpatient vi sit 15 minutes Shailesh Dunham [facility] Start: 04-08-2023 End: 04-08-2023 ambulatory Shailesh Dunham Other [facility] Other Start: 04-08-2023 Telephone encounter Shailesh AYON [facility] Start: 04-05-2023 End: 04-05-2023 ambulatory Shailesh Dunham Other [facility] Other Start: 04-05-2023 Telephone encounter Shailesh AYON [facility] Start: 04-04-2023 End: 04-04-2023 ambulatory Raul Quan Other [facility] Other Start: 04-04-2023 Telephone encounter Raul Quan [facility] Start: 03-29-2023 End: 03-29-2023 ambulatory Shailesh Dunham Other [facility] Other Start: 03-29-2023 Transitional care ellen sarkar srvc 14 day discharge Shailesh Dunham [facility] Start: 03-29-2023 End: 03-29-2023 Patient encounter procedure DO Shailesh Dunham Work Phone: [facility] Start: 03-25-2023 End: 03-25-2023 ambulatory Raul Quan Other [facility] Other Start: 03-25-2023 Telephone encounter Raul STEPHENSON [facility] Start: 03-24-2023 End: 03-25-2023 ambulatory Ivelisse Hassan Facility:CD:[id number] Start: 01-13-2023 End: 01-14-2023 ambulatory Ivelisse Hassan Facility:[facility] Start: 01-13-2023 End: 01-13-2023 Patient encounter procedure Ivelisse Hassan [facility] Start: 11-10-2022 Office outpatient vi sit 25 minutes Raul Quan [facility] Vascular Surgery Start: 11-10-2022 End: 11-10-2022 Patient encounter procedure DO Shailesh Dunham Work Phone: [facility] Start: 11-10-2022 End: 11-10-2022 ambulatory DO Shailesh Dunham Work Phone: [employer] Other Start: 10-07-2022 End: 10-08-2022 ambulatory Ivelisse Hassan Facility:[facility] Start: 10-07-2022 End: 10-07-2022 Patient encounter procedure Ivelisse Hassan [facility] Start: 08-04-2022 End: 08-04-2022 ambulatory Raul Quan Other [facility] Other Start: 08-04-2022 Postop follow up vis it related to original px Raul Quan [facility] V[facility] Surgery Start: 07-28-2022 End: 07-29-2022 ambulatory Ivelisse Hassan Facility:[facility] Start: 07-14-2022 ambulatory Ivelisse Hassan Facility:C [id number] Start: 07-09-2022 End: 07-09-2022 ambulatory Shailesh Dunham Other [facility] Other Start: 07-09-2022 Telephone encounter [facility] Start: 07-08-2022 End: 07-08-2022 ambulatory Shailesh Dunham Other [facility] Other Start: 07-08-2022 Telephone encounter [facility] Start: 07-08-2022 End: 07-09-2022 Evaluation and management of inpatient DO Shailesh Dunham Work Phone: [facility] [place] [facility] Work Phone: Start: 07-01-2022 End: 07-01-2022 ambulatory DO Shailesh Dunham Work Phone: [facility] Work Phone: Start: 07-01-2022 End: 07-01-2022 Patient encounter procedure DO Shailesh Dunham Work Phone: [facility]-Pre-Surgical Testing Work Phone: Start: 06-24-2022 End: 06-25-2022 ambulatory Ivelisse Hassan Facility:[facility] Start: 06-24-2022 End: 06-24-2022 Patient encounter procedure Ivelisse Hassan [facility] Start: 05-21-2022 End: 05-21-2022 ambulatory Shailesh Dunham Other [facility] Other Start: 05-21-2022 Patient encounter procedure Shailesh Dunham [facility] Start: 05-19-2022 End: 05-19-2022 ambulatory Tamar Perea Other [facility] Other Start: 05-19-2022 Follow-up encounter Tamar Livingston [facility] Start: 05-13-2022 End: 05-13-2022 ambulatory Raul Quan Other [facility] Other Start: 05-13-2022 Telephone encounter Raul STEPHENSON [facility] Start: 05-11-2022 End: 05-11-2022 ambulatory DO Shailesh Dunham Work Phone: [facility] Work Phone: Start: 05-11-2022 End: 05-11-2022 Patient encounter procedure DO Shailesh Dunham Work Phone: [facility] [place] Work Phone: Start: 04-23-2022 End: 04-23-2022 ambulatory Raul uQan Other [facility] Other Start: 04-23-2022 Telephone encounter Raul Quan [facility] V[facility] Surgery Start: 04-15-2022 End: 04-15-2022 Lab Drop off Ivelisse Hassan [facility] Start: 04-15-2022 End: 04-15-2022 Patient encounter procedure Ivelisse Hassan [facility] Start: 04-14-2022 End: 04-14-2022 ambulatory Shailesh Dunham Other [facility] Other Start: 04-14-2022 Telephone encounter Shailesh Dunham [facility] Start: 03-10-2022 End: 03-10-2022 ambulatory Raul Stanislawnakul Other [facility] Other Start: 03-10-2022 Office outpatient vi sit 25 minutes Raul Quan [facility] V[facility] Surgery Start: 02-25-2022 End: 02-25-2022 Patient encounter procedure IVA ANTOINE [facility] Start: 02-18-2022 End: 02-18-2022 Patient encounter procedure IVA ANTOINE [facility] Start: 02-11-2022 End: 02-11-2022 Lab Drop off Ivelisse MSilvestre Hassan [facility] Start: 02-11-2022 End: 02-11-2022 Patient encounter procedure Ivelisse PorrasSilvestre Hymancaleb [facility] Start: 02-10-2022 End: 02-11-2022 ambulatory IVELISSE HASSAN . Facility:[facility] Start: 02-07-2022 Encounter for other preprocedural examination DR RAUL QUAN [facility] Start: 02-07-2022 Encounter for preprocedural laboratory examination DR RAUL QUAN [facility] Start: 02-04-2022 End: 02-05-2022 Evaluation and management of inpatient DO Shailesh Dunham Work Phone: [facility]-[address] [place] [address] Surgical Start: 02-02-2022 End: 02-03-[address] RAUL QUAN Facility:[facility] Start: 02-02-2022 End: 02-03-2022 Encounter for other preprocedural examination DR RAUL QUAN Facility:[facility] Start: 01-20-2022 Office outpatient vi sit 25 minutes Raul Quan [facility] Surgery Start: 01-20-2022 End: 01-20-2022 ambulatory DO Shailesh Dunham Work Phone: [employer] [facility] [employer] Other Start: 01-20-2022 End: 01-20-2022 Patient encounter procedure DO Shailesh Dunham Work Phone: [facility] Start: 01-05-2022 End: 01-05-2022 ambulatory Raul Quan Other [facility] Other Start: 01-05-2022 Office outpatient vi sit 25 minutes Raul Quan [facility] Vascular Surgery Start: 12-08-2021 End: 12-09-[address] SHAILESH DUNHAM Facility:[facility] Start: 12-02-2021 End: 12-02-[address] SHAILESH DUNHAM Facility:[facility] Start: 11-24-2021 End: 11-24-2021 ambulatory Tamar Brit Other [facility] Other Start: 11-24-2021 Patient encounter procedure Tamar Perea [facility] Vascular Surgery Start: 11-11-2021 End: 11-11-[address] SHAILESH DUNHAM Facility:[facility] Start: 10-26-2021 End: 10-26-[address] SHAILESH DUNHAM Facility:[facility] Start: 10-21-2021 Patient encounter procedure Shailesh Dunham Work Phone: [facility] [address] [place] Work Phone: Start: 10-16-2021 Telephone encounter Judah Vivas MD Work Phone: [facility] 250 DO Work Phone: Start: 10-15-2021 End: 10-15-2021 Evaluation and management of inpatient DO Shailesh Dunham Work Phone: [facility] [place] [facility] Start: 10-13-2021 End: 10-13-2021 Patient encounter procedure DO Shailesh Dunham Work Phone: [facility]-Pre-Surgical Testing Start: 10-06-2021 End: 10-06-2021 Patient encounter procedure DO Shailesh Dunham Work Phone: [facility]-Pre-Surgical Testing Start: 09-30-2021 End: 09-30-2021 ambulatory Tamar Brit Other [facility] Other Start: 09-30-2021 Encounter for other preprocedural examination Tamar Perea [facility] V[facility] Surgery Start: 09-30-2021 Follow-up encounter Tamar Perea [facility] Start: 09-22-2021 End: 09-23-[address] SHAILESH DUNHAM Facility: Start: 09-18-2021 End: 09-18-2021 Patient encounter procedure DO Shailesh Dunham Work Phone: [facility] [place] Start: 09-15-2021 End: 09-15-2021 ambulatory Tamar Perea Other [facility] Other Start: 09-15-2021 Follow-up encounter Tamar Perea [facility] Start: 08-27-2021 End: 08-27-2021 Patient encounter procedure DO Shailesh Dunham Work Phone: [facility] Start: 08-12-2021 End: 08-13-[address] TESSIE JONAS Facility: Start: 07-28-2021 End: 07-28-2021 ambulatory Raul Quan Other [facility] Other Start: 07-28-2021 Office outpatient ne w 45 minutes Raul Quan [facility] V[facility] Surgery Start: 06-13-2020 End: 06-13-2020 Patient encounter procedure Lisandra Cavazosrik Work Phone: [facility] Work Phone: Patient encounter status Judah Harrington MD Work Phone: [facility] 250 DO Work Phone: Procedures Date Procedure Procedure Detail Performing Clinician Start: 06-16-2023 Computed tomography of abdomen and pelvis with contrast DO Shailesh Dunham Work Phone: Start: 05-04-2023 Cystoscopic removal of ureteric stent Ivelisse Hassan Start: 04-28-2023 Cystoscopic insertion of ureteric stent Ivelisse Hassan Start: 11-10-2022 Doppler ultrasonography of bilateral carotid arteries DO Shailesh [employer] Phone: Start: 07-28-2022 Cystourethroscopy with dilation of urethral stricture Ivelisse Hassan Start: 07-08-2022 Insertion of carotid artery stent DO Ryder raines [employer] Phone: Start: 05-11-2022 Computed tomography angiography of abdominal and/or pelvic blood vessel DO Shailesh [employer] Phone: Start: 05-11-2022 CT angiography of head DO Shailesh [employer] Phone: Start: 05-11-2022 CT angiography of neck vessels DO Josué fischer [employer] Phone: Start: 02-10-2022 PSA screening IVELISSE HASSAN . Comment on above: Performed By: #### DATA1C #### [facility] [address] [place] [address] Dr. 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 Ivelisse Hassan Start: 02-04-2022 Endovascular repair of abdominal aortic aneurysm DO Shailesh [employer] Phone: Start: 01-20-2022 Doppler ultrasonography of bilateral carotid arteries DO Shailesh [employer] Phone: Start: 09-18-2021 Computed tomography angiography of abdominal and/or pelvic blood vessel DO Shailesh [employer] Phone: Start: 08-27-2021 US scan of aorta DO Shailesh [employer] Phone: Start: 08-27-2021 Doppler ultrasonography of bilateral carotid arteries DO Shailesh [employer] Phone: Start: 06-13-2020 Imm. administration COVID19 [employer] Work Phone: Start: 06-13-2020 SARS-CoV-2 vaccine, 0.5ml [employer] Work Phone: Start: 10-18-2019 Transurethral prostatectomy Ivelisse Hassan Start: 04-06-2019 Cystoscope, device (physical object) Ivelisse Hassan Start: 10-06-2016 Colonoscopy Ivelisse Hassan Comment on above: 2006, 2010 Arthroscopy of knee Ivelisse ellis Catheterization of left heart Ivelisse Hassan Esophagogastroduodenoscopy K britany Hassan Plan of Treatment Date Care Activity Detail Author Start: 09-01-2023 ambulatory Ambulatory Facility:[facility] Start: 08-19-2023 [facility] Start: 07-09-2022 [facility] Start: 07-08-2022 Hospital admission [facility] Start: 07-08-2022 Patient referral to dietitian [facility] Start: 02-05-2022 [facility] Start: 02-04-2022 [facility] Start: 02-04-2022 Hospital admission [facility] Start: 10-21-2021 STRESS NUC, Provider: [facility] NUCLEAR 01,[id number], Status: Pen, Time: 7:30 AM STRESS NUC, Provider: [facility] NUCLEAR 01,[id number], Status: Pen, Time: 7:30 AM [facility] 250 DO Work Phone: Start: 10-15-2021 [facility] Work Phone: Start: 10-15-2021 OR Percutaneous EVAR AAA (Not Applicable) OR Percutaneous EVAR AAA (Not Applicable) [facility] Start: 10-15-2021 End: 10-15-2021 Evaluation and management of inpatient AAA (abdominal aortic aneurysm) [facility] [place] [address] Surgical Start: 10-13-2021 End: 10-13-2021 Patient encounter procedure Departed Clinical [facility] Testing Patient Education [facility] Work Phone: [facility] referral [facility] Work Phone: US Gallbladder [facility] Heart limited [facility] US [facility] Thoracic and abdo sebastian aorta [facility] US.doppler Carotid arteries - bilateral [facility] Immunizations Immunization Date Immunization Notes Care Provider David caevedomerlin 06-13-2020 Rodney [employer] Rodney COVID 19 Vaccine [facility] Comment on above: Note: Patient tolera shyann well. No signs or symptoms of adverse reactions. Patient waited a minimum of 15 minutes. NEGATED: Highlighted row has not occurred!01-13-2023 influenza virus vaccine, unspecified formulation Ivelisse Hassan [facility] Payers Date Payer Category Payer Self-pay [id number] 2020 Unknown [id number] 1959 Self-pay [id number] 1959 Unknown [id number] 1959 Unknown [id number] 1959 Unknown [id number] 1942 Unknown [id number] 1942 Unknown [id number] 1942 Unknown [id number] 2.16.84 0.1.699186.3.579.2.593 1940 Unknown [id number] 2.16.84 0.1.395069.3.579.2.593 1940 Unknown [id number] 2.16.84 0.1.815522.3.579.2.593 1942 Unknown [id number] 2.16.84 0.1.511602.3.579.2.593 1942 Unknown [id number] 2.16.84 0.1.585881.3.579.2.593 1942 Unknown [id number] 2.16.8 40.1.888031.3.579.2.727 1942 Unknown [id number] 2.16.8 40.1.830655.3.579.2.727 1942 Unknown [id number] 2.16.8 40.1.482966.3.579.2.727 1942 Unknown [id number] 2.16.8 40.1.479343.3.579.2.727 1942 Unknown [id number] 2.16.8 40.1.243201.3.579.2.727 1942 Unknown [id number] 2.16.8 40.1.455204.3.579.2.727 1942 Unknown [id number] 2.16.8 40.1.711203.3.579.2.727 1942 Unknown [id number] 2.16.8 40.1.834766.3.579.2.727 1942 Unknown [id number] 2.16.8 40.1.017605.3.579.2.727 1942 Unknown [id number] 2.16.84 0.1.615110.3.579.2.1259 Unknown Unknown [facility] [place] [id number] Unknown [id number] 2.16.84 0.1.503303.3.579.2.593 Unknown [id number] 2.16.8 40.1.638725.3.579.2.531 Unknown [id number] 2.16.8 40.1.948258.3.579.2.531 Unknown [id number] 2.16.8 40.1.325770.3.579.2.531 Social History Date Type Detail Facility Tobacco smoking status Unknown i f ever smoked [facility] Work Phone: Start: 03-08-1955 End: 03-08-1996 Sex Assigned At [facility] Start: 10-15-2021 End: 08-19-2023 Tobacco smoking status NHIS Ex-smoker (finding) [facility] Start: 1940 Sex Assigned At Male F [facility] Tobacco smoking status Never [facility] Medical Equipment Procedure Code Equipment Code Equipment Origin al Text Equipment Identifier Dates Transcarotid artery revascularization (TCAR) Bare-metal carotid artery stent ()[id number] FDA Start: 07-08-2022 Transcarotid artery revascularization (TCAR) Bare-metal carotid artery stent ()[id number] FDA Start: 07-08-2022 Percutaneous endovascular repair of abdominal aortic aneurysm (AAA) Abdominal aorta endovascular stent-graft ()[id number] FDA Start: 02-04-2022 Percutaneous endovascular repair of abdominal aortic aneurysm (AAA) Abdominal aorta endovascular stent-graft ()[id number] FDA Start: 02-04-2022 Percutaneous endovascular repair of abdominal aortic aneurysm (AAA) Abdominal aorta endovascular stent-graft ()[id number] FDA Start: 02-04-2022 Goals Date Patient Goal Desired Activity /State Functional Status Date Assessment Result Facility 05-04-2023 Functional Status N/A [facility] 01-13-2023 Functional Status N/A [facility] 10-07-2022 Functional Status N/A [facility] 07-09-2022 Functional status Patient is Pro gressing Toward [facility] Work Phone: 06-24-2022 Functional Status N/A [facility] 04-15-2022 Functional Status N/A [facility] 02-25-2022 Functional Status N/A [facility] 02-18-2022 Functional Status N/A [facility] 02-11-2022 Functional Status N/A [facility] 02-05-2022 Functional status Patient at Baseline [facility] Work Phone: 10-15-2021 Functional status Patient at Baseline [facility] Work Phone: Mental Status Date Assessment Result Facility 07-09-2022 Cognitive function Cognitive Sta tus Patient is Progressing Toward Baseline [facility] Work Phone: 02-05-2022 Cognitive function Cognitive Sta tus Patient at Baseline [facility] Work Phone: 10-15-2021 Cognitive function Cognitive Sta tus Patient at Baseline [facility] Work Phone: Clinical Notes 04-18-2020 to 10-13-2023 Note Date & Type Note Facility 10-13-2023 Note 10/13/23 1028 Admission Assessment Questions Verify insurance with patient Yes Do you understand medical disease or what brought you into the hospital? Yes Who is your current PCP? Shailesh Dunham Can I schedule a follow up appointment for you at the time of discharge? No (Patient states that his makes all of his appointments) Do you understand why you are taking your current medications? Yes Are you taking your medications as prescribed? Yes Did patient provide teach back? No Pharmacy Bedside Delivery Status Not Interested ([facility] in [place]) Does the patient have a case management director assigned to them through their insurance? No Living Arrangement (Current/Prior to Hospitalization) Private residence (1 story house with 2 steps. Lives with his and she is able to help with his care as needed after discharge.) Does the patient have history of HHC or SNF? No Assistive Device Not applicable Patient's goal for discharge Home no needs Was patient reminded that goal for discharge is 11am? Yes Does the patient have transportation at discharge? Yes (Patient's ) Type of Residence Private residence Is PT/OT appropriate? No Is PT/OT ordered? No Is SW consult appropriate? No Is SW consult ordered? No Do you understand the benefits of MyChart? Yes Were you able to send link and activate MyChart? No (Patient states that he does not use it.) Patient from home and plans to return home no needs at discharge. [facility] 10-13-2023 Note B Surgery Attendin g Patient seen and examined. He is overall doing very well. Pain is well-controlled. Afebrile. Blood pressure and heart rate are controlled. Abdomen is soft and nondistended. All incisions are healing well. 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 Intraoperative biopsies demonstrated no evidence of malignancy. Pending final pathology. Plan Okay to discharge home today Restart all home medications Start aspirin 81 mg 10/14 Continue to use left arm sling in the setting of a clavicular fracture (3 weeks ago) Follow-up with me in clinic in approximately 2 weeks Amber Bryant MD [facility] 10-12-2023 Note Patient: Chico hidalgo Procedure Summary Date: 10/12/23 Room / Location: [facility] OPERATING [facility]OM 13 / [facility] Operating Room Anesthesia Start: 0949 Anesthesia Stop: 153 Procedures: Robot-Assisted Cholecystectomy with Intraoperative Ultrasound and PArtial Liver Resection of segement 4/5 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 Anesthesia Post Evaluation Patient location during evaluation: PACU Patient participation: complete - patient participated Level of consciousness: awake Pain score: 1 Airway patency: patent Cardiovascular status: acceptable Respiratory status: acceptable and nasal airway Hydration status: acceptable Patient is hemodynamically stable and is able to be discharged from PACU per anesthesia protocol. No notable events documented. 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]) Surgeons: Amber Bryant MD Responsible Provider: Kathi Lyons MD Anesthesia Type: general ASA Status: 4 Anesthesia Post Transport Note Transport to: PACU O2 Route: nasal cannula Oxygen Flow (L/min): 4 Patient Monitor: direct observation Transport: uneventful Patient condition is: stable Comments: Patient was able to respond and follow verbal commands throughout transport process [facility] 10-12-2023 Note Arterial Line: Date/Time: 10/12/2023 11:49 AM An arterial line was placed Procedure performed using surface landmarks.in the pre-op for the following indication(s): continuous blood pressure monitoring and blood sampling needed. A 20 G (size), 2 inch (length), Angiocath (type) catheter was placed, Seldinger technique used , into the Left radial artery, secured by Biodisc/Biopatch, tape and Tegaderm. Events: patient tolerated procedure well with no complications. Staffing Performed: resident/TIRE BUILDER/CAA and anesthesiologist Anesthesiologist: Kathi Lyons MD Resident/TIRE BUILDER: Marcial Alvarado MD Performed by: Marcial Alvarado MD Authorized by: Kathi Lyons MD [facility] 10-12-2023 Note Airway Date/Time: 10/12/2023 10:03 AM Urgency: elective Airway not difficult General Information and Staff Patient location during procedure: OR Resident/TIRE BUILDER/CAA: Marcial Alvarado MD Performed: resident/TIRE BUILDER/CAA Learner assisted: Michell Castillo MS4 Indications and Patient Condition Indications for airway management: anesthesia Spontaneous Ventilation: absent Sedation level: deep Preoxygenated: yes Patient position: sniffing Mask difficulty assessment: 1 - vent by mask Planned trial extubation Final Airway Details Final airway type: endotracheal airway Successful airway: ETT Cuffed: yes Successful intubation technique: video laryngoscopy Facilitating devices/methods: intubating stylet Endotracheal tube insertion site: oral Blade: Plascencia Blade size: #3 ETT size (mm): 7.5 Cormack-Lehane Classification: grade I - full view of glottis Placement verified by: chest auscultation and capnometry Measured from: lips ETT to lips (cm): 21 Number of attempts at approach: 1 [facility] 10-06-2023 Note SURGERY FOLLOWUP NOT E Amber Bryant MD, MHPE, FACS, FSSO Hepatobiliary, pancreatic, biliary surgery Surgical Oncology General and minimally invasive surgery Reason for visit: Gallbladder polyp PCP: Shailesh Dunham MD Chief Complaint: Gallbladder polyp History of Present Illness: Chico Baker is a 83 y.o. male who presents for follow-up of a gallbladder mass first identified during [...] a polyp vs malignancy. The patient was scheduled for surgery approximately 2 weeks ago when he sustained a fall and fractured his clavicle. He is currently doing well and is managed with a sling. 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 Nonrheumatic aortic (valve) stenosis Osteoporosis PAD (peripheral artery disease) (CMS/HCC) Paget's disease of bone Varicose veins of both lower extremities PSH: Past Surgical History: Procedure Laterality Date ABDOMINAL AORTIC ANEURYSM REPAIR EVAR CAROTID STENT Left CATARACT EXTRACTION, BILATERAL Bilateral COLONOSCOPY CYSTOSCOPY FEMUR FRACTURE SURGERY Right KIDNEY STONE SURGERY TRANSURETHRAL RESECTION OF PROSTATE VARICOSE VEIN SURGERY Left Allergies: Allergies Allergen Reactions Shalini Inhibitors Hives [...] (six) hours if needed., Disp: , Rfl: aspirin 81 mg EC tablet, Take 81 mg by mouth in the morning., Disp: , Rfl: carvedilol (Coreg) 25 mg tablet, Take 1 tablet by mouth with breakfast and with evening meal., Disp: , Rfl: cholecalciferol (Vitamin D-3) 25 MCG (1000 UT) capsule, in the morning and at bedtime., Disp: , Rfl: isosorbide mononitrate ER (Imdur) 30 mg 24 hr tablet, Take 30 mg by mouth in the morning., Disp: , Rfl: losartan (Cozaar) 50 mg tablet, Take 50 mg by mouth at bedtime., Disp: , Rfl: pravastatin (Pravachol) 40 mg tablet, Take 40 mg by mouth at bedtime., Disp: , Rfl: Allergy, diphenhydrAMINE, 25 mg capsule, TAKE 2 CAPSULES BY MOUTH ONCE NEEDED FOR ALLERGIC REACTION 60 MINUTES PRIOR TO TEST, Disp: , Rfl: Social History: Social History Socioeconomic History Marital status: Spouse name: Not on file Number of children: Not on file Years of education: Not on file Highest education level: Not on file Occupational History Not on file Tobacco Use Smoking status: Former Packs/day: 2.00 Years: 40.00 Additional pack years: 0.00 Total pack years: 80.00 Types: Cigarettes Quit date: 1997 Years since quittin.5 Smokeless tobacco: Never Vaping Use Vaping Use: Never used Substance and Sexual Activity Alcohol use: Yes Alcohol/week: 3.0 standard drinks of alcohol Types: 3 Shots of liquor per week Drug use: Never Sexual activity: Not on file Other Topics Concern Not on file Social History Narrative Not on file Social Determinants of Health Financial Resource Strain: Not on file Food Insecurity: Not on file Transportation Needs: Not on file Physical Activity: Not on file Stress: Not on file Social Connections: Not on file Intimate Partner Violence: Unknown (10/06/2023) Humiliation, Afraid, Rape, and Kick questionnaire Fear of Current or Ex-Partner: No Emotionally Abused: Not on file Physically Abused: Not on file Sexually Abused: Not on file Housing Stability: Not on file Family History: Family History Problem Relation Name Age of Onset Heart disease Mother No Known Problems Father No Known Problems Sister Relevant medical/surgical/family/social histories, medications, problem list and allergies reviewed and updated with patient during the office visit. Physical Exam Vital Signs: Blood pressure 134/55, pulse 62, temperature 36.8 ???C (98.2 ???F), temperature so (more content not included)... [facility] 09-23-2023 Note Patient: Chico hidalgo Procedure Information Date/Time: 09/24/2330 Procedures: Robot-Assisted Cholecystectomy with Intraoperative Ultrasound and Possible Liver Resection, Lymph Node Dissection, Bile Duct Resection and Bilioenteric Anastomosis - [place] U/S and Plastycinci BK Drop-In Probe#[id number] Location: [facility] 13 / [facility] Operating Room Surgeons: Amber Bryant MD Relevant Problems Cardio (+) AAA (abdominal aortic aneurysm) (CMS/HCC) (+) ASHD (arteriosclerotic heart disease) (+) Left carotid stenosis (+) Nonrheumatic aortic (valve) stenosis (+) Peripheral artery disease (CMS/HCC) (+) Primary hypertension /Renal (+) Kidney stones Clinical information reviewed: Tobacco Allergies Meds Med Hx Surg Hx Fam Hx Soc Hx Physical Exam Airway Mallampati: II TM distance: >3 FB Neck ROM: full Cardiovascular Rhythm: regular Rate: normal Dental (+) upper dentures Pulmonary (+) decreased breath sounds Abdominal Anesthesia Plan ASA 4 general (A line, possibl CVP) intravenous induction Anesthetic plan and risks discussed with patient. Use of blood products discussed with patient who. Plan discussed with attending, resident and medical student. Additional Equipment Requests [facility] 08-18-2023 Note HEPATOBILIARY & PANC REAS SURGERY CONSULTATION NOTE Reason for Consult: Consult for gallbladder mass PCP: Shailesh Dunham MD Chief Complaint: Gallbladder mass History of Present Illness: Chico Melgoza Samuel is a 83 y.o. male who presents [...] Smokeless tobacco: Never (more content not included)... [facility] 08-13-2023 Note The patient is a ple [...] fall with right femoral ORIF while playing [employer] Abdominal aortic stent Left carotid artery stent x 2 Left-sided kidney lithotripsy x 2 and a prostate procedure, he is not sure which one, for his BPH. Current medications are Aspirin. The patient was previously on Plavix after stents but has been on them for some time Nitroglycerin as needed [facility] vitamin D capsule Cozaar dur Protocol Coreg Allergies are to SHALINI inhibitors [...] of a gallbladder malignancy. Will send to [place] to see if the actual film from [...] bed and lymph node evaluation as well. [facility] 05-04-2023 Hospital Discharge instructions Patient Education 05/04/2023 [...] include: ?8 oz (237 mL) of milk, vjcpakf-dqiparnqtyge-sodoy milk, and calcium-fortifiedfruit juice. Calcium-fortified means that [...] ?Spinach (cooked), rhubarb, beets, sweet potatoes, and Tristanian chard. ?Peanuts. ?Potato chips, singaporean fries, and baked potatoes with skin on. ?Nuts and nut products. ?Chocolate. If you regularly take a diuretic medicine, make sure to eat at least 1 or 2 servings of fruits or vegetables that are high in potassium each day. These include: ?Avocado. ?Banana. ?Sharp, prune, carrot, or tomato juice. ?Baked potato. [...] magnesium, fish oil, or vitamin B6. Take nuxu-nqj-rmrfiwr and prescription medicines only as told by [...] Casseroles. Pizza. Lasagna. Frozen meals. Potato chips. Mongolian fries. The items listed above may not [...] provider. Document Revised: 06/04/2022 Document Reviewed: 06/04/2022 [employer] Patient Education 2022 [employer] Follow Up Care 04/29/2023 08:42:17 With:Mo LEIJA, Ivelisse Schreiber URErasmo, URO Address: When:Within 4 Month(s) Comments:w/KEDAR [facility] 04-14-2023 Evaluation note Encounter Date Diagnosis Assessment [...] this time and surgery could be scheduled. [facility] Other 02-07-2024 Evaluation note* Encounter Date Diagnosis [...] Z01.818) I have seen and examined Mr Samuel for preoperative evaluation. He had experienced extreme elevation of his BP during his previous procedure. Since this episode, his medications have been adjusted, bringing his BP under adequate control to proceed with his next procedure. [facility] Other 02-01-2024 Evaluation note* Encounter Date Diagnosis Assessment Notes Treatment Notes Treatment Clinical Notes Apr, Primary hypertension (ICD-10 - I10) [facility] Other 01-29-2024 Evaluation note* Encounter Date Diagnosis Assessment Notes Treatment Notes Treatment Clinical Notes Mar, Primary hypertension (ICD-10 - I10) [facility] Other 01-28-2024 Evaluation note* Encounter Date Diagnosis Assessment Notes Treatment Notes Treatment Clinical Notes Mar, Primary hypertension (ICD-10 - I10) [facility] Other 01-22-2024 Evaluation note* Encounter Date Diagnosis [...] has resolved INstructed on increasing fluids Restart [facility] Other 11-08-2023 Hospital Discharge instructions Patient Education [...] urethra. Follow these instructions at home: Take osqg-bbz-nitsoni and prescription medicines only as told by [...] provider. Document Revised: 09/10/2021 Document Reviewed: 09/10/2021 [employer] Patient Education 2022 [employer] Follow Up Care 10/07/2022 09:26:45 With:Mo LEIJA, AKILAH Smith, URO Address: When: Unknown [facility] 09-05-2023 Evaluation note* Encounter Date Diagnosis Assessment [...] in the office with a CT scan. [facility] Other 08-02-2023 Hospital Discharge instructions Patient Education [...] urethra. Follow these instructions at home: Take jjpi-dqj-nmecrlc and prescription medicines only as told by [...] provider. Document Revised: 09/10/2021 Document Reviewed: 09/10/2021 [employer] Patient Education 2022 [employer] Follow Up Care 07/28/2022 10:29:31 With:Mo LEIJA, AKILAH Smith, URO Address: When:Within 3 Day(s) [facility] 05-30-2023 Evaluation note* Encounter Date [...] a couple of weeks. These have resolved. [facility] Other 05-04-2023 Discharge summary Author Raul Quan [facility] July 09, 2022 12:08pm Note Date/Time July 09, 2022 8:07am [facility] [address] [place] [address] Discharge Summary Signed Patient: Chico Baker MR#: [id number] : 1940 Acct:[id number] Age/Sex: 82 / M Adm Date: 3 Loc: Room: [address] [place] [address]: Raul Quan MD Copies to: [...] midline, neck is supple, no JVD. Bilateral tire builder strength is equal. He has a little [...] <Electronically signed by MD Raul Quan> 07/09/22 120[address] [facility] Work Phone: 1(548) 988-124405-03-2023 History and physical note Author Raul Quan [facility] July 08, 2022 11:06am Note Date/Time July 08, 2022 11:06a m [facility] [address] [place] [address] Vascular Surgery H&P Signed Patient: Chico Baker MR#: [id number] : 1940 Acct:[id number] Age/Sex: 82 / M Adm Date: 3 Loc: Room: [address] [place] [address] Type: ADM IN Attending Dr: Raul Quan [...] signed by MD Raul Quan> 07/08/22 1106 [facility] Work Phone: 1(193) 539-218004-19-2023 Hospital Discharge instructions Patient Education 06/24/2022 09:42:41 [...] Follow these instructions at home: Medicines Take suee-usm-ukfhdsk and prescription medicines only as told by [...] or the blood stops without treatment. Take jzjq-haf-ujkpdmc and prescription medicines only as told by your health care provider. Drink enough fluid to keep your urine pale yellow. This information is not intended to replace advice given to you by your health care provider. Make sure you discuss any questions you have with your health care provider. Document Revised: 10/23/2020 Document Reviewed: 10/23/2020 [employer] Patient Education 2022 [employer] Follow Up Care 04/15/2022 10:15:03 With:Mo LEIJA, AKILAH Smith, URO Address: 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 Walk daily Inspect feet daily for cuts [facility] Other 03-14-2023 Evaluation note* Encounter Date Diagnosis [...] left TCAR procedure once he returns from [place] at the end of June beginning of [...] agree with plan, and denies any questions. [facility] Other 03-08-2023 Evaluation note* Encounter Date Diagnosis Assessment Notes Treatment Notes Treatment Clinical Notes May, Carotid stenosis, bilateral (ICD-10 - I65.23) CTA: < 50% right, 80% left [facility] Other 03-08-2023 Evaluation note* Encounter Date Diagnosis Assessment Notes Treatment Notes Treatment Clinical Notes May, Carotid stenosis, bilateral (ICD-10 - I65.23) CTA: < 50% right, 70% left - 05/2022 [facility] Other 02-08-2023 Hospital Discharge instructions Patient Education [...] prostate. Follow these instructions at home: Take bfjq-gah-ohwhfkx and prescription medicines only as told by [...] 02/19/2001 Document Revised: 05/07/2018 Document Reviewed: 11/12/2016 [employer] Patient Education 2020 [employer]. Follow Up Care 02/11/2022 10:55:52 With:Mo LEIJA, AKILAH Smith, URO Address: When: Unknown [facility] 02-07-2023 Evaluation note* Encounter Date Diagnosis Assessment Notes Treatment Notes Treatment Clinical Notes Apr, Primary hypertension (ICD-10 - I10) [facility] Other 01-03-2023 Evaluation note* Encounter Date Diagnosis [...] to perform simultaneously to minimize contrast exposure. [facility] Other 12-21-2022 Hospital Discharge instructions Patient Education 02/25/2022 12:02:33 Rash, Adult, Flzb-xe-Rrho Rash, Adult A rash is a change [...] with your condition: Medicine Take or apply mvjm-jle-fmlwxzk and prescription medicines only as told by [...] the rash from spreading. Take or apply zsle-izt-ualdjpa and prescription medicines only as told by [...] 08/10/2008 Document Revised: 06/16/2019 Document Reviewed: 09/26/2018 [employer] Patient Education 2019 [employer]. Follow Up Care 02/18/2022 14:33:21 With:Ivelisse Hassan Address:Unknown When: Unknown Comments:Appointment has already been scheduled [facility] 12-14-2022 Hospital Discharge instructions Patient [...] including vitamins, herbs, eye drops, creams, and wjnb-moa-uwiqowz medicines. Any problems you or family members [...] provider tells you to take them. Taking vswh-qzm-cgeuylc medicines, vitamins, herbs, and supplements. Eating and [...] 02/22/2006 Document Revised: 06/14/2019 Document Reviewed: 11/23/2018 [employer] Patient Education 2020 [employer]. Follow Up Care 02/17/2022 16:33:06 With:ARASH BUCHANAN, IVA Ellis, URL Address: [address] [place] [address]. [place] [address] [phone] When:02/25/2022 [facility] 12-07-2022 Hospital Discharge instructions Patient [...] prostate. Follow these instructions at home: Take umjm-irc-liozzqq and prescription medicines only as told by [...] 02/19/2001 Document Revised: 05/07/2018 Document Reviewed: 11/12/2016 [employer] Patient Education 2020 [employer] Follow Up Care 01/28/2021 10:15:04 With:Mo LEIJA, AKILAH Smith, URO Address: When:6 weeks [facility] 12-01-2022 Discharge summary Author Raul Quan [facility] February 05, 2022 10:08am Note Date/Time February 05, 2022 7 :52am [facility] [address] [place] [address] Discharge Summary Signed Patient: Chico Baker MR#: [id number] : 1940 Acct:[id number] Age/Sex: 81 / M Adm Date: 2 Loc: N Room: 5F1501-[address]: Raul Quan MD Copies to: [...] % (Auto) 69.5, Lymph % (Auto) 14.4, [place] % (Auto) 14.8, Eos % (Auto) 0.7, Baso % (Auto) 0.6, Nucleat RBC Rel Count 0.1, Neut # (Auto) 7.1, Lymph # (Auto) 1.5, [place] # (Auto) 1.5 H, Eos # (Auto) 0.1, Baso # (Auto) 0.1 02/04/22 08:25: Corrected WBC 9.3, Uncorrected WBC Count 9.3, RBC 4.10, Hgb 12.4L, Hct 37.5 L, MCV 91.5, MCH 30.2, MCHC 33.0, RDW 13.7, Plt Count 198, MPV 8.5, Neut % (Auto) 70.1, Lymph % (Auto) 16.4, [place] % (Auto) 12.0, Eos % (Auto) 0.9, Baso % (Auto) 0.6, Nucleat RBC Rel Count 0.0, Neut # (Auto) 6.5, Lymph # (Auto) 1.5, [place] # (Auto) 1.1 H, Eos # (Auto) [...] signed by MD Raul Quan> 02/05/22 [address] [facility] Work Phone: 1(223) 197-507011-15-2022 Evaluation note* Encounter Date Diagnosis Assessment Notes [...] we will evaluate him for left TCAR. [facility] Other 10-31-2022 Evaluation note* Encounter Date Diagnosis [...] complete and CT confirms candidacy for TCAR [facility] Other 09-19-2022 Evaluation note* Encounter Date Diagnosis Assessment Notes Treatment Notes Treatment Clinical Notes Nov, AAA (abdominal aortic aneurysm) without rupture (ICD-10 - I71.4) This patient is still recovering from his recent orthopedic procedures. He continues with physical therapy and although he is getting stronger, he remains quite fatigued and weak yet. He has an upcoming appointment with his basin tender for preoperative risk assessment and stratification this next week. We will give him a few more weeks of physical therapy and have him back in a month or so to reschedule his AAA. He did tell me that he had some abdominal pain while in the correction facility and was taken to the [facility] where a CT of the abdomen was obtained. We will get these studies pushed over for review and comparison. He denies any abdominal pain today and tells me his appetite is pretty good. He knows to call us in the meantime with any issues. [facility] Other 07-26-2022 Evaluation note* Encounter Date Diagnosis [...] agrees with this plan, denies any questions. [facility] Other 07-11-2022 Evaluation note* Encounter Date Diagnosis [...] agrees with this plan, and denies questions. [facility] Other 07-11-2022 Evaluation note* Encounter Date Diagnosis [...] agrees with this plan, and denies questions. [facility] Other 05-23-2022 Evaluation note* Encounter Date Diagnosis [...] returns we will get baseline ankle-brachial indices. [facility] Other 10-06-2021 NoteHNO ID: [id number] Author: Power Catherine MD Service: ? Author Type: Physician Type: Progress Notes Filed: 12/11/2020 11:17 AM Note Text: [facility] OUTPATIENT VISIT DATE December 11, 2020 OUTPATIENT VISIT TYPE EST PRIMARY CARE PHYSICIAN: Shailesh Dunham (Jere) [address] [place] [address] REFERRING PHYSICIAN Power Catherine [address] [facility] [address] CHIEF COMPLAINT: Patient presents with: Established Patient [...] up. Continue statin therapy. ? Power Catherine, [facility]02-11-2021 NotePatient Outreach (COVAMN) SAMUELCHICO Abad ([id number]) 1940 M Date Time Provider Department 04/18/20 RONALDSKIMBERLEY During your visit today, we recorded the following information about you: Allergies As of Date: 04/18/2020 Noted Allergy Reaction SHALINI INHIBITORS 05/09/2015 16 - Unknown GADOLINIUM-CONTAINING CONTRAST ME*05/09/2015 16 - Unknown TETANUS VACCINES AND TOXOID 05/16/2015 16 - Unknown Date Reviewed: 10/18/2017 Reviewed by: Power Catherine - Fully Assessed Order(s):SARS-COVID VACCINE 1ST DOSE APPT [[id number]] Order #: [id number] FUTURE Prescriptions as of 04/18/2020 Sig: ASPIRIN [...] (None) Encounter Status:Closed by ISIDORO JOHNSON on 04/22/20[facility] Evaluation + Plan note Future Appointments Appointment Date:04/15/2022 08:45:00 AM Scheduled Provider:Ivelisse Hassan MD Location:[facility] Appointment Type:URO Office Visit [facility] evaluation + Plan note Future Appointments Appointment Date:04/15/2022 08:45:00 AM Scheduled Provider:Ivelisse Hassan MD Location:[facility] Appointment Type:URO Office Visit Diagnostic Tests Pending * [facility]ments Appointment Date:02/25/2022 11:00:00 AM Scheduled Provider:IVA ANTOINE PA-C Location:[facility] Appointment Type:URO Office Visit Appointment Date:04/15/2022 08:45:00 AM Scheduled Provider:Ivelisse Hassan MD Location:[facility] Appointment Type:URO Office Visit [facility] evaluation + Plan note Future Appointments Appointment Date:06/24/2022 09:30:00 AM Scheduled Provider:Ivelisse Hassan MD Location:[facility] Appointment Type:URO Office Visit [facility] evaluation + Plan note Future Appointments Appointment Date:01/13/2023 09:00:00 AM Scheduled Provider:Ivelisse Hassan MD Location:[facility] Appointment Type:URO Office Visit [facility] evaluation + Plan note Future Appointments Appointment Date:09/01/2023 11:00:00 AM Scheduled Provider:Ivelisse Hassan MD Location:[facility] Appointment Type:URO Office Visit [facility] Evaluation + Plan note Future Appointments Appointment Date:09/01/2023 11:00:00 AM Scheduled Provider:Ivelisse Hassan MD Location:[facility] Appointment Type:URO Office Visit Diagnostic Tests Pending * Calculi Analysis [facility] Diagnosis Onset Date Resolution Status AAA (abdominal aortic aneurysm) acute [facility] Work Phone: Evaluation noteNo assessment information available [facility] Work Phone: evaluation noteNo InformationNort [employer] Other evaluation note* Diagnosis Onset Date Resolution Status Left carotid stenosis acute [facility] Work Phone: evaluation note* Diagnosis Onset Date Resolution Status Hypercholesterolemia acute IFG (impaired fasting glucose) acute Kidney stones acute Nonrheumatic aortic (valve) stenosis acute Peripheral artery disease ac [place] Primary hypertension acute [facility] Work Phone: evaluation note* Diagnosis Onset Date Resolution Status Gallbladder polyp acute Hypercholesterolemia acute IFG (impaired fasting glucose) acute Nonrheumatic aortic (valve) stenosis acute Paget's disease of bony pelvis acute Peripheral artery disease ac [place] Primary hypertension acute [facility] Work Phone: evaluation note* Diagnosis Onset Date Resolution Status Gallbladder polyp acute Hypercholesterolemia acute IFG (impaired fasting glucose) acute Nonrheumatic aortic (valve) stenosis acute Paget's disease of bony pelvis acute Peripheral artery disease ac [place] Primary hypertension acute AAA (abdominal aortic aneurysm) without rupture acute [facility] Work Phone: Evaluation note* Diagnosis Onset Date Resolution Status Gallbladder polyp acute Hypercholesterolemia acute IFG (impaired fasting glucose) acute Nonrheumatic aortic (valve) stenosis acute Paget's disease of bony pelvis acute Peripheral artery disease ac [place] Primary hypertension acute AAA (abdominal aortic aneurysm) without rupture acute AAA (abdominal aortic aneurysm) without rupture acute Benign prostatic hyperplasia with lower urinary tract symptoms acute Gallbladder polyp acute Hypercholesterolemia acute Mass of gallbladder acute Nonrheumatic aortic (valve) stenosis acute Paget's disease of bony pelvis acute Peripheral artery disease ac [place] Primary hypertension acute [facility] Work Phone: Evaluation note* Diagnosis Onset Date Resolution Status Hypercholesterolemia acute IFG (impaired fasting glucose) acute Nonrheumatic aortic (valve) stenosis acute Paget's disease of bony pelvis acute Peripheral artery disease ac [place] Primary hypertension acute AAA (abdominal aortic aneurysm) without rupture acute AAA (abdominal aortic aneurysm) without rupture acute Benign prostatic hyperplasia with lower urinary tract symptoms acute Hypercholesterolemia acute Mass of gallbladder acute Nonrheumatic aortic (valve) stenosis acute Paget's disease of bony pelvis acute Peripheral artery disease ac [place] Primary hypertension acute AAA (abdominal aortic aneurysm) without rupture acute Hypercholesterolemia acute IFG (impaired fasting glucose) acute Mass of gallbladder acute Nonrheumatic aortic (valve) stenosis acute Peripheral artery disease ac [place] Primary hypertension acute Preop exam for internal medicine noneactive [facility] Work Phone: Evaluation note* Diagnosis Onset Date Resolution Status Hypercholesterolemia acute IFG (impaired fasting glucose) acute Nonrheumatic aortic (valve) stenosis acute Paget's disease of bony pelvis acute Peripheral artery disease ac [place] Primary hypertension acute AAA (abdominal aortic aneurysm) without rupture acute AAA (abdominal aortic aneurysm) without rupture acute Benign prostatic hyperplasia with lower urinary tract symptoms acute Hypercholesterolemia acute Mass of gallbladder acute Nonrheumatic aortic (valve) stenosis acute Paget's disease of bony pelvis acute Peripheral artery disease ac [place] Primary hypertension acute AAA (abdominal aortic aneurysm) without rupture acute Hypercholesterolemia acute IFG (impaired fasting glucose) acute Mass of gallbladder acute Nonrheumatic aortic (valve) stenosis acute Peripheral artery disease [facility] Primary hypertension acute Preop exam for internal medicine noneactive AAA (abdominal aortic aneurysm) without rupture acute Benign prostatic hyperplasia with lower urinary tract symptoms acute Hypercholesterolemia acute Mass of gallbladder acute Nonrheumatic aortic (valve) stenosis acute Paget's disease of bony pelvis acute Peripheral artery disease ac [place] Primary hypertension acute [facility] Work Phone: History general Narrative - Reported* Type Description Date Medical History hypercholesterolemia Medical History abdominal aortic aneurysm Medical History Carotid stenosis Medical History PAD Surgical History TURP Surgical History knee arthroscopy LEFT Surgical History Vein stripping Hospitalization History See Above [facility] Other History general Narrative - Reported* Type Description Date Medical History hypercholesterolemia Medical History abdominal aortic aneurysm Medical History Carotid stenosis Medical History PAD Surgical History TURP Surgical History knee arthroscopy LEFT Surgical History Vein stripping Surgical History RT FEMUR FX WITH ARABELLA PLACEMENT Hospitalization History See Above [facility] Other Hispmxl general Narrative - Reported* Type Description Date Medical History hypercholesterolemia Medical History abdominal aortic aneurysm Medical History Carotid stenosis Medical History PAD Medical History [ ] Surgical History TURP Surgical History knee arthroscopy LEFT Surgical History Vein stripping Surgical History RT FEMUR FX WITH ARABELLA PLACEMENT Surgical History EVAR 02/04/2022 Surgical History [ ] Hospitalization History See Above [facility] Other history general Narrative - Reported* Type [...] History COLONOSCOPY 2019 Hospitalization History See Above [facility] Other Hispdjl general Narrative - Reported* Type Description Date [...] Left TCAR 07/2022 Hospitalization History See Above [facility] Other Histtqy general Narrative - Reported* Type Description Date [...] Left TCAR 07/2022 Hospitalization History See Above [facility] Other Hisemaw general Narrative - Reported* Type Description Date [...] left ESWL 03/2023 Hospitalization History See Above [facility] Other Hospital course Narrative No data available for this section [facility] Discharge instructions No data available for this section [facility] Author Raul Quan [facility] October 15, 2021 4:31pm Note Date/Time October 15, 2021 4: 31pm [facility] [address] [place] [address] Vascular Surgery Progress Note Signed Patient: Chico Baker MR#: [id number] : 1940 Acct:[id number] Age/Sex: 81 / M Adm Date: 2 Loc: 4N Room: [address] [place] [address] Type: DIS IN Attending Dr: Raul Quan [...] with evaluation here. I will contact [facility] to performoutpatient cardiac evaluation and then he will be rescheduled when he is cleared. Code(s): I71.4 - Abdominal aortic aneurysm, without rupture Status: Acute Documented By: Raul Quan MD 10/15/21 162 9 Signed By: <Electronically signed by MD Raul Quan> 10/15/21 1631 [facility] Work Phone: progress note Author Pb Zurita [facility] October 16, 2021 5:41am Note Date/Time October 16, 2021 5: 41am [facility] [address] [place] [address] Anesthesia Progress Note Signed Patient: Chico Baker MR#: [id number] : 1940 Acct:[id number] Age/Sex: 81 / M Adm Date: 2 Loc: 4N Room: [address] [place] [address] Type: DIS IN Attending Dr: Raul Quan MD Copies to: ~ Anesthesia Progress Note Narrative Narrative: Patient for EVAR today for 5+ centimeter infrarenal AAA. Past medical history hypertension, moderate aortic stenosis, and coronary artery disease. Review of medical records and discussion with indicates patient had stress test 2009 positive for infarct and ischemia at which time he was referred to [facility] and had cardiac cath. Medical management was apparently chosen. No interval events,testing, or intervention. Patient has been asymptomatic but sedentary and poor historian. Advised patient and family to see basin tender for consideration of preop stress testing. Discussed with surgeon Documented By: Pb Zurita MD 10/16/21 0535 Signed By: <Electronically signed by Pb Zurita MD> 10/16/21 0538 [facility] Work Phone: Progrgft note No data available for this section [facility] Reason for Referral No Reason [...] for Immunization 1st COVID Vaccine manuel Fry Christos PharmD 06/13/2020 Instructions Instructions not supported [...] Complaint i71.4 BP check S/P EVAR; [facility] Nonrheumatic aortic stenosis Reason for Visit Gallbladder [...] Complaint i71.4 BP check S/P EVAR; [facility] Nonrheumatic aortic stenosis sugical clearance, gall bladder [...] Complaint i71.4 BP check S/P EVAR; [facility] Nonrheumatic aortic stenosis sugical clearance, gall bladder [...] Complaint i71.4 BP check S/P EVAR; [facility] Nonrheumatic aortic stenosis sugical clearance, gall bladder [...] section and content) DATE CREATED AUTHOR 04/02/2021 [facility] DATE CREATED AUTHOR AUTHOR'S ORGANIZ ATION 10/28/2021 [facility] DATE CREATED AUTHOR AUTHOR'S ORGANIZ ATION 04/14/2022 [facility] DATE CREATED AUTHOR AUTHOR'S ORGANIZ ATION 05/13/2023 [facility] Center DATE CREATED AUTHOR AUTHOR'S ORGANIZ ATION 07/29/2023 [facility] EPIC DATE CREATED AUTHOR AUTHOR'S ORGANIZ ATION 09/08/2023 [facility] DATE CREATED AUTHOR AUTHOR'S ORGANIZ ATION 10/14/2023 [facility] REASON FOR VISIT (unrecogniz ed section [...] Member Role Status Dates Sheri Christiansen MD Edging Supervisor Active Shailesh Dunham DO Primary Care Provider [...] BE BASED ON THE PRIMARY CLINICAL RECORDS. [facility] [employer] [facility]. provides no warranty or guarantee of the accuracy or completeness of information in this document.
--- NOTE | 2023-10-14 10:13 | ECG_ITS ---
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
--- NOTE | 2023-10-14 10:13 | XR_ITS ---
The [address] [address] Patient Name: CHICO BAKER MRN: [id number] date: 1940 Sex: M Assigned Patient Location: ER Current Patient Location: ED.MAIN Accession/Order Number: [id number] Exam Date: 10/14/2023 10:20 Report Date: 10/14/2023 10:46 At the request of: DAGO AGUILAR Procedure: XR chest 1V EXAMINATION: XR chest 1V HISTORY: SOB COMPARISON: 03/24/2023 TECHNIQUE: AP portable FINDINGS: LUNGS: Low lung volumes. Scattered subcentimeter pulmonary nodules, size and density suggests granulomas, unchanged VASCULATURE: No increased pulmonary vasculature. PLEURA: No pneumothorax, effusion, or pleural thickening. CARDIAC: No cardiomegaly or cardiac silhouette abnormality. MEDIASTINUM: No visible mass or adenopathy. Aortic atherosclerosis BONES: No fracture or visible bone lesion. OTHER: Negative. XR/XR chest 1V IMPRESSION: No acute cardiopulmonary process Electronically authenticated by: ROCIO RICARDO Date: 10/14/2023 10:46
--- NOTE | 2023-10-14 10:14 | ED_ITS ---
HPI - SOB/Dyspnea General Chief Complaint: Shortness of Breath/Dyspnea Stated Complaint: SHORTNESS OF BREATH/ CHEST PAIN Time Seen by Provider: 10/14/23 09:54 Source: patient Mode of arrival: Wheelchair History of Present Illness HPI Narrative: 83-year-old male presents for shortness of breath. 2 days ago he had cholecystectomy at [facility] and he was released the next day, yesterday. Since then he has been short of breath. He is not complaining of abdominal pain and he has not had a fever or cough. He has no personal history of atrial fibrillation. Related Data Home Medications ?Medication ?Instructions ?Recorded ?Confirmed pravastatin 40 mg tablet 40 mg PO QPM 03/12/23 10/14/23 cholecalciferol (vitamin D3) 25 25 mcg PO BID 03/24/23 10/14/23 mcg (1,000 unit) capsule carvedilol 25 mg tablet (Coreg) 25 mg PO BID 04/04/23 10/14/23 isosorbide mononitrate 30 mg 30 mg PO DAILY 10/14/23 10/14/23 tablet,extended release 24 hr losartan 50 mg tablet 50 mg PO DAILY 10/14/23 Allergies Allergy/AdvReac Type Severity Reaction Status Date / Time SHALINI Inhibitors Allergy Unknown Unknown Verified 09/22/23 21:07 Iodinated Contrast Media Allergy Unknown Hives Verified 09/22/23 21:07 iodine Allergy Unknown Hives Verified 09/22/23 21:07 tetanus toxoid, adsorbed Allergy Unknown Unknown Verified 09/22/23 21:07 Review of Systems ROS Narrative A ten point review of systems is negative except as noted above. [facility] Medical History (Updated 10/14/23 @ 13:49 by Walt Chadwick MD) Presence of internal carotid stent (~07/2022) ?Z95.828 - Presence of other vascular implants and grafts (ICD-10) Aortic valve stenosis ?I35.0 - Nonrheumatic aortic (valve) stenosis (ICD-10) Heart murmur ?R01.1 - Cardiac murmur, unspecified (ICD-10) Carotid stenosis ?I65.29 - Occlusion and stenosis of unspecified carotid artery (ICD-10) Anemia ?D64.9 - Anemia, unspecified (ICD-10) Femur fracture (~10/2021) ?S72.90XA - Unspecified fracture of unspecified femur, initial encounter for closed fracture (ICD-10) AAA (abdominal aortic aneurysm) ?I71.40 - Abdominal aortic aneurysm, without rupture, unspecified (ICD-10) Heartburn ?R12 - Heartburn (ICD-10) Delayed recovery from anesthesia Urethral stricture ?N35.919 - Unspecified urethral stricture, male, unspecified site (ICD-10) Post-void dribbling ?N39.43 - Post-void dribbling (ICD-10) Penile rash ?R21 - Rash and other nonspecific skin eruption (ICD-10) Paget's disease Nocturia ?R35.1 - Nocturia (ICD-10) Incontinence ?R32 - Unspecified urinary incontinence (ICD-10) Microhematuria ?R31.29 - Other microscopic hematuria (ICD-10) Impotence ?N52.9 - Male erectile dysfunction, unspecified (ICD-10) Hypertension ?I10 - Essential (primary) hypertension (ICD-10) Hyperlipidemia ?E78.5 - Hyperlipidemia, unspecified (ICD-10) Kidney stones ?N20.0 - Calculus of kidney (ICD-10) Gross hematuria ?R31.0 - Gross hematuria (ICD-10) Erectile dysfunction ?N52.9 - Male erectile dysfunction, unspecified (ICD-10) Dysuria ?R30.0 - Dysuria (ICD-10) BPH (benign prostatic hyperplasia) ?N40.0 - Benign prostatic hyperplasia without lower urinary tract symptoms (ICD-10) Asymptomatic microscopic hematuria ?R31.21 - Asymptomatic microscopic hematuria (ICD-10) ASHD (arteriosclerotic heart disease) ?I25.10 - Atherosclerotic heart disease of [place] coronary artery without angina pectoris (ICD-10) Surgical History (Updated 03/25/23 @ 13:51 by Rajni Rios NP) H/O lithotripsy ?Z98.890 - Other specified postprocedural states (ICD-10) History of open reduction and internal fixation (ORIF) procedure (~10/2021) ?Z98.890 - Other specified postprocedural states (ICD-10) Hx of esophagogastroduodenoscopy ?Z98.890 - Other specified postprocedural states (ICD-10) H/O cardiac catheterization ?Z98.890 - Other specified postprocedural states (ICD-10) H/O arthroscopy of knee ?Z98.890 - Other specified postprocedural states (ICD-10) H/O colonoscopy ?Z98.890 - Other specified postprocedural states (ICD-10) H/O cystoscopy ?Z98.890 - Other specified postprocedural states (ICD-10) H/O transurethral resection of prostate ?Z98.890 - Other specified postprocedural states (ICD-10) ?Z90.79 - Acquired absence of other genital organ(s) (ICD-10) S/P AAA repair (~02/2022) ?Z98.890 - Other specified postprocedural states (ICD-10) ?Z86.79 - Personal history of other diseases of the circulatory system (ICD- 10) S/P cystourethroscopy with dilation of urethral stricture ?Z98.890 - Other specified postprocedural states (ICD-10) Social History Within the past year, how often did you have a drink containing alcohol: 2-3 times a week Smoking status: Former smoker Non-prescribed substance use: denies use Previous occupational history: retired Highest level of school completed/degree received: high school graduate Are you now , , , , never or living with a partner: In a typical week, how many times do you talk on the telephone with family, friends, or neighbors: twice per week How often do you get together with friends or relatives: twice per week Little interest or pleasure in doing things: not at all Feeling down, depressed, or hopeless: not at all Feel stressed/tense/nervous/anxious/difficulty sleeping: not at all Do you think of yourself as: straight/heterosexual Gender Identity: male Exam Narrative Exam Narrative: Nurses note and vital signs reviewed and patient is not hypoxic. General: The patient appears mildly dyspneic. Skin: Warm, dry, no pallor noted. There is no rash noted. Head: Normocephalic, atraumatic Eye: Normal conjunctiva, no drainage Ears, Nose, Mouth, and Throat: oral mucosa is moist. Nares patent. Cardiovascular: Irregularly irregular and tachycardic Respiratory: Patient is in no distress, no accessory muscle use, lungs are clear to auscultation, no wheezing, rales or rhonchi Back: non-tender GI: Soft and nontender Musculoskeletal: Pretibial edema present bilaterally Neurological: Awake and alert Psychiatric: Cooperative Constitutional Vital Signs, click to edit/add: Last Vital Signs Temp 97.6 F 10/14/23 09:57 Pulse 110 H 10/14/23 13:30 Resp 23 H 10/14/23 13:30 BP 121/80 10/14/23 12:15 Pulse Ox 97 10/14/23 13:32 O2 Del Method Room Air 10/14/23 13:32 O2 Flow Rate 1 10/14/23 10:42 Course Vital Signs Vital signs: Vital Signs Temperature 97.6 F 10/14/23 09:57 Pulse Rate 72 10/14/23 09:57 Respiratory Rate 18 10/14/23 09:57 Blood Pressure 148/82 H 10/14/23 09:57 Pulse Oximetry 98 10/14/23 09:57 Oxygen Delivery Method Room Air 10/14/23 09:57 Temperature 97.6 F 10/14/23 09:57 Pulse Rate 110 H 10/14/23 13:30 Respiratory Rate 23 H 10/14/23 13:30 Blood Pressure 121/80 10/14/23 12:15 Pulse Oximetry 97 10/14/23 13:32 Oxygen Delivery Method Room Air 10/14/23 13:32 Oxygen Delivery Flow Rate 1 10/14/23 10:42 MDM - SOB/Dyspnea MDM Narrative Medical decision making narrative: The patient presented with atrial fibrillation with RVR, new onset. He was given Cardizem bolus and then placed on a drip and his heart rate has come down appropriately. Initial troponin was 366, repeat 330. He is not on any anticoagulants. He is being admitted to ICU on the Cardizem drip. Treatment diagnosis and disposition were discussed with the patient and his family. Differential Diagnosis Differential diagnosis: Likely congestive heart failure, community acquired pneumonia, pulmonary embolism and other (Cardiac dysrhythmia) Lab Data Attestation: I reviewed the patient's lab results. Labs: Lab Results 10/14/23 10/14/23 Range/Units 10:13 11:46 WBC 15.7 H (4.0-11.0) 10^3/uL RBC 3.44 L (4.70-6.10) 10^6/uL Hgb 10.6 L (14.0-18.0) g/dL Hct 31.6 L (42.0-54.0) % MCV 91.9 (80.0-94.0) fL MCH 30.8 (25.9-34.0) pg MCHC 33.5 (29.9-35.2) g/dL RDW 12.2 (11.0-15.0) % Plt Count 191 (150-450) 10^3/uL MPV 10.1 (9.5-13.5) fL Neut % (Auto) 80.7 H (43.0-75.0) % Lymph % (Auto) 9.1 L (20.5-60.0) % [place] % (Auto) 9.6 (1.7-12.0) % Eos % (Auto) 0.1 L (0.9-7.0) % Baso % (Auto) 0.1 L (0.2-2.0) % Neut # (Auto) 12.7 H (1.4-6.5) 10^3/uL Lymph # (Auto) 1.4 (1.2-3.8) 10^3/uL [place] # (Auto) 1.5 H (0.3-0.8) 10^3/uL Eos # (Auto) 0.0 (0.0-0.7) 10^3/uL Baso # (Auto) 0.0 (0.0-0.1) 10^3/uL Abs Immat Gran (auto) 0.07 H (0.00-0.03) 10^3/uL Imm/Tot Granulo (auto) 0.4 (0.0-0.5) % PT 11.6 (9.0-11.6) sec INR 1.11 APTT 30.8 (22.3-36.2) sec Sodium 130 L (136-145) mmol/L Potassium 4.1 (3.5-5.1) mmol/L Chloride 95 L (98-107) mmol/L Carbon Dioxide 24.6 (21.0-32.0) mmol/L Anion Gap 14.5 BUN 20.0 H (7.0-18.0) mg/dL Creatinine 0.97 (0.70-1.30) mg/dL Est GFR ( Amer) >60 (>=60) Est GFR (Non-Af Amer) >60 (>=60) BUN/Creatinine Ratio 20.6 Glucose 176 H (74-106) mg/dL Calcium 8.6 (8.5-10.1) mg/dL Troponin I High Sens 366.3 H* 330.4 H* (4.0-76.1) pg/mL Imaging Data Chest x-ray: Radiologist's impression: ITS Impressions Chest X-Ray 10/14/23 10:13 IMPRESSION: No acute cardiopulmonary process Electronically authenticated by: ROCIO RICARDO Date: 10/14/2023 10:46 Chest CTA 10/14/23 11:00 IMPRESSION: No central pulmonary thromboembolic disease Small amount of free intraperitoneal air, correlate with the patient's recent surgery Electronically authenticated by: ROCIO RICARDO Date: 10/14/2023 13:20 ECG Data Attestation: I personally reviewed and interpreted this ECG as follows: (EKG on my interpretation shows A-fib with RVR, rate 135) Critical Care Time Critical Care Time Critical Care Time: Yes Total Critical Care Time: 45 Attestation: Due to the high probability of sudden and clinically significant deterioration in the patient's condition he/she required the highest level of my preparedness to intervene urgently I provided critical care time including documentation time, medication orders and management, reevaluation, vital sign assessment, ordering and reviewing of lab tests, ordering and reviewing of x-ray studies, and admission orders. Aggregate critical care time is 45 minutes including only time during which I was engaged in work directly related to his/her care and did not include time spent treating other patients simultaneously. Discharge Plan Discharge Chief Complaint: Shortness of Breath/Dyspnea Clinical Impression: Atrial fibrillation with RVR Patient Disposition: Admitted As Inpatient Time of Disposition Decision: 13:48 Condition: Fair Prescriptions / Home Meds: No Action pravastatin 40 mg tablet 40 mg PO QPM carvedilol [Coreg] 25 mg tablet 25 mg PO BID cholecalciferol (vitamin D3) 25 mcg (1,000 unit) capsule 25 mcg PO BID isosorbide mononitrate 30 mg tablet extended release 24 hr 30 mg PO DAILY losartan 50 mg tablet 50 mg PO DAILY Print Language: Polish Referrals: Shailesh Vinson DO [Primary Care Provider] - 1 week
[2023-10-14] MEDS: DILTIAZEM HCL 25 MG/5 ML VIAL 10 MG IV (10:24)
[2023-10-14 10:28] LABS: Basophils Percent Auto 0.1 % (0.2-2.0); Eosinophils Percent Auto 0.1 % (0.9-7.0); Hematocrit 31.6 % (42.0-54.0); Hemoglobin 10.6 g/dL (14.0-18.0); Immature Granulocytes Abs Auto 0.07 10^3/uL (0.00-0.03); Immature Granulocytes Pct Auto 0.4 % (0.0-0.5); Lymphocytes Absolute Auto 1.4 10^3/uL (1.2-3.8); Lymphocytes Percent Auto 9.1 % (20.5-60.0); Mean Corpuscular HGB Conc 33.5 g/dL (29.9-35.2); Mean Corpuscular Hemoglobin 30.8 pg (25.9-34.0); Mean Corpuscular Volume 91.9 fL (80.0-94.0); Mean Platelet Volume 10.1 fL (9.5-13.5); Monocytes Absolute Auto 1.5 10^3/uL (0.3-0.8); Monocytes Percent Auto 9.6 % (1.7-12.0); Neutrophils Absolute Auto 12.7 10^3/uL (1.4-6.5); Neutrophils Percent Auto 80.7 % (43.0-75.0); Platelet Count 191 10^3/uL (150-450); Red Blood Count 3.44 10^6/uL (4.70-6.10); Red Cell Distribution Width 12.2 % (11.0-15.0); White Blood Count 15.7 10^3/uL (4.0-11.0)
[2023-10-14 10:41] LABS: INR 1.11; Partial Thromboplastin Time 30.8 sec (22.3-36.2); Prothrombin Time 11.6 sec (9.0-11.6)
--- NOTE | 2023-10-14 10:42 | PC.NURSE ---
NC at 1 placed for comfort with fast heart rate
[2023-10-14 10:48] LABS: Anion Gap 14.5; BUN Creatinine Ratio 20.6; Calcium 8.6 mg/dL (8.5-10.1); Carbon Dioxide 24.6 mmol/L (21.0-32.0); Chloride 95 mmol/L (98-107); Estimated GFR (African America >60 (>=60); Estimated GFR (Non-African Ame >60 (>=60); Glucose 176 mg/dL (74-106); Potassium 4.1 mmol/L (3.5-5.1); Sodium 130 mmol/L (136-145)
[2023-10-14 10:55] LABS: Troponin I High Sensitivity 366.3 pg/mL (4.0-76.1)
--- NOTE | 2023-10-14 11:00 | CT_ITS ---
The [address] [address] Patient Name: CHICO BAKER MRN: [id number] date: 1940 Sex: M Assigned Patient Location: ER Current Patient Location: ER Accession/Order Number: [id number] Exam Date: 10/14/2023 12:25 Report Date: 10/14/2023 13:20 At the request of: DAGO AGUILAR Procedure: CT angio chest EXAMINATION: CT angio chest HISTORY: Shortness of breath, recent surgery COMPARISON: No relevant comparison available. TECHNIQUE: Multi-planar CT images were created with IV contrast. Axial, Coronal, and Sagittal images. Dose reduction techniques were achieved by using automated exposure control and/or adjustment of mA and/or kV according to patient size and/or use of iterative reconstruction technique. FINDINGS: LUNGS: Soft tissue attenuation distal right trachea likely retained mucus. Mild patchy opacities identified in the lung bases, atelectasis is favored. PLEURA: Calcified pleural plaques, prior granulomatous process 1 cm bilateral pleural effusions VASCULATURE: Normal postcontrast opacification of the central pulmonary arterial tree with no filling defects to suggest a pulmonary embolus LAVONNE: No mass or adenopathy. MEDIASTINUM: No mass or adenopathy. CARDIAC: No enlargement. Small amount of pericardial fluid likely physiologic in amount Coronary calcifications, heavy AORTA: No aortic aneurysm or dissection. Moderate calcific atherosclerosis CHEST WALL: No mass or axillary adenopathy. BONES: No bone lesion or fracture. LIMITED ABDOMEN: Small amount of free intraperitoneal air, correlate with the patient's recent surgery OTHER: Negative. CT/CT angio chest IMPRESSION: No central pulmonary thromboembolic disease Small amount of free intraperitoneal air, correlate with the patient's recent surgery Electronically authenticated by: ROCIO RICARDO Date: 10/14/2023 13:20
[2023-10-14] MEDS: dilTIAZem HCL 125 MG in 0.9 % SODIUM CHLORIDE 100 ML IV (11:01)
[2023-10-14] MEDS: DIPHENHYDRAMINE HCL 25 MG CAPSULE 50 MG PO (11:39)
[2023-10-14] MEDS: METHYLPREDNISOLONE SOD SUCC PF 125 MG/2 ML VIAL IVP (11:41)
[2023-10-14 12:12] LABS: Troponin I High Sensitivity 330.4 pg/mL (4.0-76.1)
--- NOTE | 2023-10-14 13:32 | PC.NURSE ---
NC O2 removed, O2 is wnl on ra, will continue to monitor
--- NOTE | 2023-10-14 14:21 | CA_ITS ---
Patient Name: CHICO BAKER MR#: [id number] : 1940 Exam Date: 10/15/2023 Ordering Doctor: Shaikh Shavonne Berrios . ECHOCARDIOGRAM REPORT PROCEDURE: CA ECHO DOPPLER COMPLETE INDICATIONS: Afib with rvr, aortic stenosis, hypertension, NSTEMI COMPARISON: None. DESCRIPTION: COMPLETE ECHOCARDIOGRAM Real-time transthoracic echocardiography with 2D, M-mode, spectral and color flow Doppler performed. QUALITY: Technical quality was good. LEFT VENTRICLE: Normal chamber size. Proximal septal hypertrophy (sigmoid septum). LV EF: Global left ventricular systolic function is difficult to assess but appears preserved; visually estimated ejection fraction is 60 to 65%. Unable to assess regional wall motion abnormalities; consider contrast study for better delineation of endocardial borders. There is a suggestion of basal inferior wall hypokinesis DIASTOLIC: Grade II diastolic dysfunction. ATRIAL SEPTUM: Inadequately seen. LEFT ATRIUM: Mild dilatation. RIGHT ATRIUM: Normal chamber size. RIGHT VENTRICLE: Normal chamber size. Normal right ventricular systolic function. TRICUSPID VALVE: Normal mobility and thickness. No stenosis with trivial regurgitation. Doppler studies reveal mildly (35-45) elevated right sided pressures. RVSP 42 mmHg MITRAL VALVE: Moderately thickened with normal mobility. No evidence of mitral valve stenosis. Mitral annular calcification. Trivial mitral regurgitation. AORTIC VALVE: Normal trileaflet appearance. Severely calcified aortic valve. Doppler velocity suggests moderate to severe aortic valve stenosis. DVI of 0.22 is consistent with severe aortic stenosis. ASHOK 1.0 cm2. No aortic regurgitation. AORTIC ROOT: Normal diameter and appearance. PULMONIC VALVE: Normal thickness and mobility. No stenosis. No regurgitation. PERICARDIUM: Anterior free space; trivial effusion versus fat pad. IVC: IVC is normal in size, does not fully collapse. CONCLUSION: 1. Global left ventricular systolic function is difficult to assess but appears preserved; visually estimated ejection fraction is 60 to 65% 2. Unable to assess regional wall motion abnormalities with accuracy; consider contrast study for better delineation of endocardial borders 3. Normal right ventricular size and systolic function 4. The left atrium is dilated 5. Grade 2, moderate diastolic dysfunction 6. Mildly elevated right ventricular systolic pressure; RVSP 42 mmHg 7. Moderate to severe aortic valve stenosis; DVI of 0.22 is consistent with severe aortic stenosis 8. Anterior free space; trivial effusion versus fat pad Adult Echocardiography Procedure Report Left Ventricle LVEDD (3.7 - 5.6 cm): 4.16 cm LVESD (2.2 - 4.0 cm): 2.54 cm LVIVS thickness (0.6 - 1.2 cm): 1.09 cm LVPW thickness (0.5 - 1.0 cm): 0.93 cm e': 0.08 m/s E - e': 12.62 LVOT Max Gradient: 1.66 mm[Hg] LVOT Area (cm2): 0.64 m/s Peak Velocity (LVOT): 0.64 m/s Mean Velocity (LVOT): 0.45 m/s LVOT Diameter 2.14 cm Left Atrium LA Volume Index (2D A2C): 43.62 ml/m2 Left Atrium Systolic Dimension: 4.20 cm Mitral Valve MV E to A Ratio: 1.45 Mitral Valve A-Wave Peak Velocity: 0.70 m/s Mitral Valve E-Wave Peak Velocity: 1.01 m/s Right Ventricle Aorta AO Root Diam: 2.95 cm Aortic Valve AoV Area (Peak Jose): 0.83 cm2, 0.79 cm2 AoV Area (VTI): 0.98 cm2, 0.95 cm2 Peak Velocity(Antegrade Flow): 2.94 m/s, 2.67 m/s Peak Gradient(Antegrade Flow): 34.65 mm[Hg], 28.49 mm[Hg] Mean Velocity(Antegrade Flow): 2.09 m/s, 1.92 m/s Mean Gradient(Antegrade Flow): 19.41 mm[Hg], 17.06 mm[Hg] Velocity Time Integral: 70.82 cm, 67.08 cm Tricuspid Valve Peak Velocity (Regurgitant Flow): 2.99 m/s Pulmonic Valve Mean Gradient: 1.94 mm[Hg] Mean Velocity: 0.66 m/s Peak Velocity: 0.93 m/s, 1.03 m/s Peak Gradient: 4.27 mm[Hg], 3.43 mm[Hg] Right Atrium Right Atrium Systolic Pressure: 42.25 ml, 42.25 ml Dictated by: Wesley Vega M.D. on 10/15/2023 at 17:58 Approved by: Wesley Vega M.D. on 10/15/2023 at 18:05
--- OUTSIDE RECORDS SUMMARY | 2023-10-14 14:44 | XMS_ITS | CCD ---
Author Organization [facility] Inform ion [facility] Care Team Providers Care Plating Foreman Name Role Phone Orlando Dotson Fernando Unavailable Raul Quan Unavailable Tamar Perea Unavailable Shailesh Dunham Unavailable DO Shailesh Dunham Primary Care Provider MD Raul Quan Attending Provider KB Perea Attending Provider MD Raul Quan Admit Provider DO Shailesh Dunham Primary Care Provider KB Perea Attending Provider MD Raul Quan Admit Provider [phone] MD Raul Quan Attending Provider [phone] SHAILESH DUNHAM Primary Care Physician [phone] [place] .IVELISSE Admitting Unavailable LUCaleb .IVELISSE Attending [...] Unavailable DO Shailesh Dunham Primary Care Provider [phone] MD Raul Quan Attending Provider DO Shailesh Dunham Primary Care Provider [phone] MD Raul Quan Attending Provider MD Raul Quan Admit Provider [phone] DO Shailesh Dunham Primary Care Provider MD [...] Translations: [SHALINI Inhibitors] Drug Allergy 08-27-19 24 [facility] Tetanus immune globulin (3 sources) Tetanus immune globulin; Translations: [tetanus immune globulin] Drug Allergy 08-27-19 Unknown Reaction [facility] (5 sources) Angiotensin Converting Enzyme (Shalini) Inhibitors Drug allergy Unknown [facility] Other (6 sources) Tetanus vaccine; Translations: [tetanus toxoid] Drug allergy Unknown [facility] Repository (20 sources) Angiotensin Converting Enzyme (Shalini) Inhibitors; Translations: [Angiotensin-conv erting enzyme inhibitor agent (substance)] Allergy to substance 05-09-19 16 [facility], [facility] (8 sources) Contrast media Allergy to substance 10-07-19 [facility] (15 sources) Tetanus immune globulin; Translations: [TETANUS IMMUNE GLOBULIN] Drug Allergy 02-24-20 19 Unknown Reaction [facility] (20 sources) Angiotensin-conve rting enzyme inhibitor agent Drug allergy Unknown [facility] Other (2 sources) Tetanus toxoid specific immunoglobulin E Drug allergy Unknown [facility] Other (12 sources) Contrast media; Translations: [Contrast Dye] Allergy to substance unknown [facility] (13 sources) Iodine; Translations: [iodine] Drug Allergy 10-27-19 22 Unknown (qualifier value) [facility] (11 sources) tetanus toxoid vaccine, inactivated; Translations: [tetanus toxoid] Drug Allergy Unknown (qualifier value) [facility] (1 source) Iodine Drug Allergy [facility] Repository (1 source) Iodine (And Iodine Containting Drugs) Drug allergy (disorder) [facility] Repository (1 source) Tetanus AND Diphtheria Tox,Adult Drug allergy (disorder) [facility] Repository (20 sources) Tetanus vaccine Drug allergy Unknown [facility] Other (13 sources) Iodinated Contrast Media; Translations: [Iodinated Contrast Media] Allergy to substance 10-27-19 22 [facility] (9 sources) tetanus toxoid, adsorbed; Translations: [tetanus toxoid, adsorbed] Allergy to substance 04-26-19 24 Unknown Reaction [facility] (1 source) GADOLINIUM-CONTAI MAYA CONTRAST MEDIA; Translations: [GADOLINIUM-CONTA INING CONTRAST MEDIA] Propensity to adverse reactions to drug (disorder) 05-09-19 16 [facility] Repository (1 source) TETANUS AND DIPHTHERIA TOXOIDS; Translations: [TETANUS AND DIPHTHERIA TOXOIDS] Propensity to adverse reactions to drug (disorder) 10-27-19 22 [facility] Repository (1 source) TETANUS VACCINES AND TOXOID; Translations: [TETANUS VACCINES AND TOXOID] Propensity to adverse reactions to drug (disorder) 05-16-19 16 [facility] Repository (1 source) ALLERGIES NOT ON FILE; Translations: [ALLERGIES NOT ON FILE] Propensity to adverse reactions (disorder) [facility] Repository Medications Current Medications Medication Drug [...] 2019 1:00am April 26, 2023 6:54pm Isosorbide Alpha itrate Active isosorbide dinitrate 30 mg oral [...] Daily, # 30 tab(s), Refills(s) 6, Pharmacy: [facility]/pharmacy #[id number], 169, cm, 10/07/22 8:54:00 [...] for 30 day(s), 60 tab(s), Refill(s) 0, [facility]/pharmacy #[id number], 169, cm, 02/11/22 8:44:00 [...] acid 7540 MG / polyethylene glycol 3350 03496 MG / potassium chloride 1200 MG / sodium ascorbate 05398 MG / sodium chloride 3200 MG Powder for Oral Solution) / 1 (polyethylene glycol 3350 387941 MG / potassium chloride 1000 MG / [...] Start: 02-11-2022 take 2 tablets by mo [facility] three times daily calcium (as [...] 22, 2023 12:15pm take 1 tablet by [facility] every eight hours as needed oxyBUTYnin Chloride [...] 2023 12:15pm take 1 capsule by mo [facility] every twenty-four hours Tamsulosin HCl 0.4 [...] Coronary arteriosclerosis; Translations: [Atherosclerotic heart disease of [place] coronary artery without angina pectoris] Onset: 11-14-2021 [...] 2 Episodic Other aftercare (1 source) 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 [facility] 30 Daily Case Managemen t Update [...] Score: PT Recommendations: OT Recommendations: New Consults: [facility] CBCon 10-13-2023 Erythrocyte distribution width (RBC) [Ratio] 12.6 % Normal 11.5-15.0 [facility] Comment on above: Performed By: #### L [id number] #### [facility] [address] [place] [address] ERYTHROCYTE MEAN CORPUSCULAR HEMOGLOBIN CONCENTRATION (G/DL) BY AUTOMATED 33.0 g/dL Normal 32.0-35.0 [facility] Comment on above: Performed By: #### L [id number] #### [facility] ([facility]) [address] [place] [address] Hematocrit (Bld) [Volume fraction] 29.4 % Low 39.0-55.0 [facility] Comment on above: Performed By: #### L [id number] #### [facility] ([facility] [address] [place] [address] Hemoglobin (Bld) [Mass/Vol] 9.7 g/dL Low 13.0-17.0 [facility] Comment on above: Performed By: #### L [id number] #### [facility] [address] [place] [address] MCH (RBC) [Entitic mass] 30.9 pg Normal 27.0-33.0 [facility] Comment on above: Performed By: #### L [id number] #### [facility] (BEAKER) [address] [place] [address] MCV (RBC) [Entitic vol] 93.6 fL Normal 82.0-98.0 [facility] Comment on above: Performed By: #### L [id number] #### [facility] ([facility]) [address] [place] [address] PLATELETS (10*3/UL) IN BLOOD AUTOMATED COUNT 141 10*3/uL Low 150-400 [facility] Comment on above: Performed By: #### L [id number] #### [facility] ([facility]) [address] [place] [address] RBC (Bld) [#/Vol] 3.14 10*6/uL Low 4.20-5.70 [facility] Comment on above: Performed By: #### L [id number] #### [facility] ([facility]) [address] [place] [address] WBC (Bld) [#/Vol] 14.01 10*3/uL High 4.00-10.60 [facility] Comment on above: Performed By: #### L [id number] #### [facility] ([facility]) [address] [place] [address] COMPREHENSIVE METABOLIC PANE Santo 10-13-2023 Albumin [Mass/Vol] 3.4 g/dL Low 3.5-5.7 [facility] Comment on above: Performed By: #### L [id number] ####[facility] ([facility])[address] [place] [address] ALP [Catalytic activity/Vol] 89 U/L Normal 34-104 [facility] Comment on above: Performed By: #### L [id number] ####[facility] ([facility])[address] [place] [address] ALT [Catalytic activity/Vol] 52 U/L Normal 7-52 [facility] Comment on above: Performed By: #### L [id number] ####[facility] ([facility])[address] [place] [address] Anion gap [Moles/Vol] 12 mmol/L Normal 7-20 [facility] Comment on above: Performed By: #### L [id number] ####[facility] ([facility])[address] [place] [address] AST [Catalytic activity/Vol] 60 U/L High 13-39 [facility] Comment on above: Performed By: #### L [id number] ####[facility] ([facility])[address] [place] [address] Bilirubin [Mass/Vol] 0.8 mg/dL Normal 0.3-1.0 [facility] Comment on above: Performed By: #### L [id number] ####[facility] ([facility] [place] [address] Calcium [Mass/Vol] 8.3 mg/dL Low 8.6-10.3 [facility] Comment on above: Performed By: #### L [id number] ####[facility] ([facility] [place] [address] Chloride [Moles/Vol] 104 mmol/L Normal 98-107 [facility] Comment on above: Performed By: #### L [id number] ####[facility] ([facility])[address] [place] [address] CO2 [Moles/Vol] 22 mmol/L Normal 21-31 [facility] Comment on above: Performed By: #### L [id number] ####[facility] ([facility])[address] [place] [address] Creatinine [Mass/Vol] 0.74 mg/dL Normal 0.70-1.30 [facility] Comment on above: Performed By: #### L [id number] ####[facility] ([facility])[address] [place] [address] GLOMERULAR FILTRATION RATE ML/MIN/1.73 SQ M.PREDICTED 91.0 mL/min/1.73m*2 Normal >60.0 [facility] Comment on above: Result Comment: The [facility]???s estimated glomerular filtration rate (eGFR) will [...] of individuals. Performed By: #### L [id number] ####[facility] ([facility] [place] [address] Glucose [Mass/Vol] 116 mg/dL High 70-100 [facility] Comment on above: Performed By: #### L [id number] ####[facility] ([facility])[address] [place] [address] Potassium [Moles/Vol] 4.4 mmol/L Normal 3.5-5.1 [facility] Comment on above: Performed By: #### L [id number] ####[facility] ([facility])[address] [place] [address] Protein [Mass/Vol] 5.9 g/dL Low 6.0-8.3 [facility] Comment on above: Performed By: #### L [id number] ####[facility] ([facility])[address] [place] [address] Sodium [Moles/Vol] 134 mmol/L Low 136-145 [facility] Comment on above: Performed By: #### L [id number] ####[facility] ([facility])[address] [place] [address] Urea nitrogen [Mass/Vol] 17 mg/dL Normal 7-25 [facility] Comment on above: Performed By: #### L [id number] ####[facility] ([facility])[address] [place] [address] UREA NITROGEN/CREATININE (MASS RATIO) IN SER/PLAS 23.0 Normal [facility] Comment on above: Performed By: #### L [id number] ####[facility] ([facility])[address] [place] [address] DSon 10-13-2023 DS Admission Admitted 10/12/2023 for [...] Your Medications These medications were sent to [facility]/pharmacy #[id number] [place] [address] acetaminophen 500 mg tablet aspirin 81 mg [...] is performed under the ED CLIA certificate #[id number]. ARTERIAL BLOOD GAS WITH CO-OXIMETRY - Abnormal [...] HCO3 POC (more content not included)... Normal [facility] MAGNESIUMon 10-13-2023 Magnesium [Mass/Vol] 1.5 mg/dL Low 1.9-2.7 [facility] Comment on above: Performed By: #### L [id number] ####[facility] ([employer])[address] [place] [address] PHOSPHORUSon 10-13-2023 Magnesium [Mass/Vol] 4.2 mg/dL Normal 2.5-5.0 [facility] Comment on above: Performed By: #### L [id number] ####[facility] ([employer])[address] [place] [address] PROTIME-INRon 10-13-2023 INR IN PPP BY COAGULATION ASSAY 1.17 High 0.90-1.10 [facility] Comment on above: Result Comment: ACCC [...] CHEST 1995;[id number]. Performed By: #### L [id number] ####[facility] [employer])[address] [place] [address] PROTHROMBIN TIME (PT) IN PPP BY COAGULATION ASSAY 14.8 Seconds Normal 12.3-14.8 [facility] Comment on above: Performed By: #### L [id number] ####[facility] ([employer])[address] [place] [address] 30on 10-12-2023 30 The patient is Moder [...] these barriers include post-op monitoring . Normal [facility] 30 Daily Case Managemen t Update [...] appropriate for patient?: Yes New Consults: Normal [facility] APTTon 10-12-2023 ACTIVATED PARTIAL THROMBOPLASTIN TIME IN PPP BY COAGULATION ASSAY 32.1 Seconds Normal 25.0-35.0 [facility] Comment on above: 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: In PA CU Result Comment: Clin ical significance of the APTT is questionable in the presence of heparin. Performed By: #### L [id number] #### [facility] ([employer]) [address] [place] [address] ARTERIAL BLOOD GAS WITH CO-O XIMETRYon 10-12-2023 Base excess Calc (Bld) [Moles/Vol] -4.3000 mmol/L Low -2.0-3.0 [facility] Comment on above: 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: In PA CU Performed By: #### L [id number] #### [facility] [address] [place] [address] [place] CARBOXYHEMOGLOBIN/HEMO GLOBIN TOTAL % IN BLOOD 1.2 % Normal 0.0-3.0 [facility] Comment on above: 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: In PA CU Performed By: #### L [id number] #### [facility]ERAP[facility] [address] [place] [address] [facility] CO2 (Bld) [Partial pressure] 42 mm[Hg] Normal 35-48 [facility] Comment on above: 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: In PA CU Performed By: #### L [id number] #### [facility] RES[facility]IR[facility]ORY THERAPY [address] [place] [address] [facility] DEOXYGENATED HEMOGLOBIN IN BLOOD 0.3 % Low 1-5 [facility] Comment on above: 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: In PA CU Performed By: #### L [id number] #### [facility] RESPIRATORY THERAPY [address] [place] [address] [facility] HCO3 (Bld) [Moles/Vol] 21.6 mmol/L Normal 21.0-28.0 [facility] Comment on above: 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: In PA CU Performed By: #### L [id number] #### [facility] RESPIRATORY THERAPY [address] [place] [address] [facility] Hemoglobin (Bld) [Mass/Vol] 9.5 g/dL Low 11.7-17.4 [facility] Comment on above: 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: In PA CU Performed By: #### L [id number] #### [facility] RESPIR[facility] THERAPY [address] [place] [address] [place] LPM 4 Normal [facility] Comment on above: 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: In PA CU Performed By: #### L [id number] #### [facility] RESPIRATORY THERAPY [address] [place] [address] [place] METHEMOGLOBIN/100 IN BLOOD 0.0 % Normal 0.0-1.5 [facility] Comment on above: 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: In PA CU Performed By: #### L [id number] #### [facility] RESPIRATORY THERAPY [address] [place] [address] [place] Oxygen (Bld) [Partial pressure] 137 mm[Hg] High 83-100 [facility] Comment on above: 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: In PA CU Performed By: #### L [id number] #### [facility] RESPIRATORY THERAPY [address] [place] [address] [facility] OXYGEN SATURATION (%) IN ARTERIAL BLOOD 99.7 % High 94.0-98.0 [facility] Comment on above: 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: In PA CU Performed By: #### L [id number] #### [facility] RESPIRATORY THERAPY [address] [place] [address] [place] OXYGENATED HEMOGLOBIN IN BLOOD 98.4 % High 90.0-95.0 [facility] Comment on above: 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: In PA CU Performed By: #### L [id number] #### [facility] RESPIRATORY THERAPY [address] [place] [address] [facility] pH (Bld) 7.32 [pH] Low 7.35-7.45 [facility] Comment on above: 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: In PA CU Performed By: #### L [id number] #### [facility] RESPIRATORY THERAPY [address] [place] [address] [facility] SOURCE OF OXYGEN Nasal cannula Normal [facility] Comment on above: 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: In PA CU Performed By: #### L [id number] #### [facility] RESPIRATORY THERAPY [address] [place] [address] [facility] CBCon 10-12-2023 Erythrocyte distribution width (RBC) [Ratio] 12.5 % Normal 11.5-15.0 [facility] Comment on above: 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: In PA CU Performed By: #### L [id number] #### [facility] ([facility]) [address] [place] [address] ERYTHROCYTE MEAN CORPUSCULAR HEMOGLOBIN CONCENTRATION (G/DL) BY AUTOMATED 32.4 g/dL Normal 32.0-35.0 [facility] Comment on above: 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: In PA CU Performed By: #### L [id number] #### [facility] ([facility]) [address] [place] [address] Hematocrit (Bld) [Volume fraction] 28.4 % Low 39.0-55.0 [facility] Comment on above: 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: In PA CU Performed By: #### L [id number] #### [facility] ([facility]) [address] [place] [address] Hemoglobin (Bld) [Mass/Vol] 9.2 g/dL Low 13.0-17.0 [facility] Comment on above: 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: In PA CU Performed By: #### L [id number] #### [facility] ([facility]) [address] [place] [address] MCH (RBC) [Entitic mass] 30.6 pg Normal 27.0-33.0 [facility] Comment on above: 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: In PA CU Performed By: #### L [id number] #### [facility] ([facility]) [address] [place] [address] MCV (RBC) [Entitic vol] 94.4 fL Normal 82.0-98.0 [facility] Comment on above: 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: In PA CU Performed By: #### L [id number] #### [facility] ([facility]) [address] [place] [address] PLATELETS (10*3/UL) IN BLOOD AUTOMATED COUNT 130 10*3/uL Low 150-400 [facility] Comment on above: 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: In PA CU Performed By: #### L [id number] #### [facility] ([facility]) [address] [place] [address] RBC (Bld) [#/Vol] 3.01 10*6/uL Low 4.20-5.70 [facility] Comment on above: 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: In PA CU Performed By: #### L [id number] #### [facility] ([facility]) [address] [place] [address] WBC (Bld) [#/Vol] 10.46 10*3/uL Normal 4.00-10.60 [facility] Comment on above: 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: In PA CU Performed By: #### L [id number] #### [facility] ([facility]) [address] [place] [address] COMPREHENSIVE METABOLIC PANE Santo 10-12-2023 Albumin [Mass/Vol] 3.3 g/dL Low 3.5-5.7 [facility] Comment on above: 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: In PA CU Performed By: #### L [id number] ####[facility] [place] [address] ALP [Catalytic activity/Vol] 84 U/L Normal 34-104 [facility] Comment on above: 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: In PA CU Performed By: #### L [id number] ####[facility] ([facility])[address] [place] [address] ALT [Catalytic activity/Vol] 53 U/L High 7-52 [facility] Comment on above: 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: In PA CU Performed By: #### L [id number] ####[facility] ([facility])[address] [place] [address] Anion gap [Moles/Vol] 11 mmol/L Normal 7-20 [facility] Comment on above: 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: In PA CU Performed By: #### L [id number] ####[facility] [place] [address] AST [Catalytic activity/Vol] 63 U/L High 13-39 [facility] Comment on above: 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: In PA CU Performed By: #### L [id number] ####[facility] ([facility] [place] [address] Bilirubin [Mass/Vol] 0.9 mg/dL Normal 0.3-1.0 [facility] Comment on above: 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: In PA CU Performed By: #### L [id number] ####[facility] ([facility])[address] [place] [address] Calcium [Mass/Vol] 7.9 mg/dL Low 8.6-10.3 [facility] Comment on above: 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: In PA CU Performed By: #### L [id number] ####[facility] ([facility])[address] [place] [address] Chloride [Moles/Vol] 107 mmol/L Normal 98-107 [facility] Comment on above: 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: In PA CU Performed By: #### L [id number] ####[facility] ([facility])[address] [place] [address] CO2 [Moles/Vol] 22 mmol/L Normal 21-31 [facility] Comment on above: 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: In PA CU Performed By: #### L [id number] ####[facility] ([facility])[address] [place] [address] Creatinine [Mass/Vol] 0.73 mg/dL Normal 0.70-1.30 [facility] Comment on above: 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: In PA CU Performed By: #### L [id number] ####[facility] ([facility])[address] [place] [address] GLOMERULAR FILTRATION RATE ML/MIN/1.73 SQ M.PREDICTED 91.4 mL/min/1.73m*2 Normal >60.0 [facility] Comment on above: 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: In PA CU Result Comment: The [facility]???s estimated glomerular filtration rate (eGFR) will [...] of individuals. Performed By: #### L [id number] ####[facility] ([facility]AKER)[address] [place] [address] Glucose [Mass/Vol] 160 mg/dL High 70-100 [facility] Comment on above: 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: In PA CU Performed By: #### L [id number] ####[facility] [place] [address] Potassium [Moles/Vol] 4.4 mmol/L Normal 3.5-5.1 [facility] Comment on above: 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: In PA CU Performed By: #### L [id number] ####[facility] ([facility])[address] [place] [address] Protein [Mass/Vol] 5.7 g/dL Low 6.0-8.3 [facility] Comment on above: 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: In PA CU Performed By: #### L [id number] ####[facility] ([facility])[address] [place] [address] Sodium [Moles/Vol] 136 mmol/L Normal 136-145 [facility] Comment on above: 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: In PA CU Performed By: #### L [id number] ####[facility] ([facility])[address] [place] [address] Urea nitrogen [Mass/Vol] 18 mg/dL Normal 7-25 [facility] Comment on above: 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: In PA CU Performed By: #### L [id number] ####[facility] ([facility])[address] [place] [address] UREA NITROGEN/CREATININE (MASS RATIO) IN SER/PLAS 24.7 Normal [facility] Comment on above: 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: In PA CU Performed By: #### L [id number] ####[facility] ([facility])[address] [place] [address] HISTOLOGY - TISSUE EXAMon LAB AP CASE REPORT Normal [facility] Comment on above: 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: 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] Result Comment: Surg ical Pathology Case: [id number] Authorizing Provider: Amber Bryant MD Collected: 10/12/2023 1204 Ordering Location: [facility] Main Operating Room Received: 10/12/2023 1233 Pathologist: Luana Rivas MD Intraop: Luana Rivas MD Specimens: A) - Common Bile Duct, CYSTIC DUCT MARGIN B) - Gallbladder, GALLBLADDER AND PORTION OF SEGMENT 4/5 Performed By: #### L [id number] ####[facility] ([facility])[address] [place] [address] LAB AP INTRAOPERATIVE CONSULTATION Normal [facility] Comment on above: 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: 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 C ommon Bile Duct. Resulted 12:53 PM 10/12/23 Gallbladder, cystic duct margin, biopsy: - No malignancy identified Intraoperative Consultation by: Luana Rivas MD B. Gallbladder. Resulted 2:58 pm 10/12/23 Gallbladder, cholecystectomy: - No malignancy identified Intraoperative Consultation by: Luana Rivas MD Performed By: #### L [id number] ####[facility] ([facility])[address] [facility] [address] HPon 10-12-2023 HP H&P reviewed. The pa tient was examined and there are no changes to the H&P. 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] Post-op Diagnosis * 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 Following this the 5 mm [...] ultrasound was brought in through the assistant kitchen manager port. Intraoperative ultrasonography of the gallbladder was undertaken examining the entire gallbladder in both its longitudinal and transverse (more content not included)... Normal [facility] PHOSPHORUSon 10-12-2023 Magnesium [Mass/Vol] 3.5 mg/dL Normal 2.5-5.0 [facility] Comment on above: 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: In PA CU Performed By: #### L [id number] #### [facility] ([facility]ER) [address] [place] [address] POCT GLUCOSE METER UNSOLICIT ED RESULTSon 10-12-2023 Glucose [Mass/Vol] 115 mg/dL High 70-105 [facility] Comment on above: 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: Waive d Testing in the ED is performed under the ED CLIA certificate #[id number]. Result Comment: spin zon Performed By: #### L [id number] ####[facility] (BEAKER)[address] [address] POCT PERFUSION PANEL UNSOLIC ITED RESULTSon 10-12-2023 CO2 [Moles/Vol] 21.0 mmol/L Normal 21.0-29.0 [facility] Comment on above: Performed By: #### L [id number] ####[facility] ([facility])[address] [address] Glucose [Mass/Vol] 132 mg/dL High 70-105 [facility] Comment on above: Performed By: #### L [id number] ####[facility] [address] HCO3 (Bld) [Moles/Vol] 19.3 mmol/L Low 23.0-28.0 [facility] Comment on above: Performed By: #### L [id number] ####[facility] ([facility] [address] Hematocrit (Bld) [Volume fraction] 24 % Low 38-51 [facility] Comment on above: Performed By: #### L [id number] ####[facility] ([facility])[address] [address] Hemoglobin (Bld) [Mass/Vol] 8.2 g/dL Low 12.0-17.0 [facility] Comment on above: Performed By: #### L [id number] ####[facility] [place] [address] POCT BASE EXCESS -7.0 mmol/L Low -2.0-3.0 [facility] Comment on above: Performed By: #### L [id number] ####[facility] (BE[facility])[address] [address] POCT IONIZED CALCIUM 1.11 mmol/L Low 1.12-1.32 [facility] Comment on above: Performed By: #### L [id number] ####[facility] ([facility])[address] [place] [address] POCT PCO2 43.3 mmHg Normal 41.0-51.0 [facility] Comment on above: Performed By: #### L [id number] ####[facility] ([facility])[address] [place] [address] POCT PH 7.26 Low 7.31-7.41 [facility] Comment on above: Performed By: #### L [id number] ####[facility] ([facility]ER)[address] [place] [address] POCT PO2 224 mmHg High 80-105 [facility] Comment on above: Performed By: #### L [id number] ####[facility] [place] [address] POCT SO2 100 % High 95-98 [facility] Comment on above: Performed By: #### L [id number] ####[facility] ([facility] [place] [address] Potassium [Moles/Vol] 4.0 mmol/L Normal 3.5-4.9 [facility] Comment on above: Performed By: #### L [id number] ####[facility] ([facility])[address] [place] [address] Sodium [Moles/Vol] 140 mmol/L Normal 138.0-146 . 0 [facility] Comment on above: Performed By: #### L [id number] ####[facility] ([facility])[address] [place] [address] CO2 [Moles/Vol] 21.0 mmol/L Normal 21.0-29.0 [facility] Comment on above: Performed By: #### L [id number] ####[facility] ([facility])[address] [place] [address] Glucose [Mass/Vol] 146 mg/dL High 70-105 [facility] Comment on above: Performed By: #### L [id number] ####[facility] ([facility])[address] [place] [address] HCO3 (Bld) [Moles/Vol] 19.6 mmol/L Low 23.0-28.0 [facility] Comment on above: Performed By: #### L [id number] ####[facility] (BE[facility]ER)[address] [place] [address] Hematocrit (Bld) [Volume fraction] 29 % Low 38-51 [facility] Comment on above: Performed By: #### L [id number] ####[facility] (BE[facility])[address] [place] [address] Hemoglobin (Bld) [Mass/Vol] 9.9 g/dL Low 12.0-17.0 [facility] Comment on above: Performed By: #### L [id number] ####[facility] (BE[facility])[address] [place] [address] POCT BASE EXCESS -5.0 mmol/L Low -2.0-3.0 [facility] Comment on above: Performed By: #### L [id number] ####[facility] (BEAK[facility])[address] [place] [address] POCT IONIZED CALCIUM 1.12 mmol/L Normal 1.12-1.32 [facility] Comment on above: Performed By: #### L [id number] ####[facility] ([facility])[address] [place] [address] POCT PCO2 33.9 mmHg Low 41.0-51.0 [facility] Comment on above: Performed By: #### L [id number] ####[facility] ([facility])[address] [place] [address] POCT PH 7.37 Normal 7.31-7.41 [facility] Comment on above: Performed By: #### L [id number] ####[facility] ([facility]ER)[address] [place] [address] POCT PO2 230 mmHg High 80-105 [facility] Comment on above: Performed By: #### L [id number] ####[facility] ([facility])[address] [place] [address] POCT SO2 100 % High 95-98 [facility] Comment on above: Performed By: #### L [id number] ####[facility] (BE[facility]ER)[address] [place] [address] Potassium [Moles/Vol] 4.2 mmol/L Normal 3.5-4.9 [facility] Comment on above: Performed By: #### L [id number] ####[facility] (BE[facility]ER)[address] [place] [address] Sodium [Moles/Vol] 136 mmol/L Low 138.0-146 . 0 [facility] Comment on above: Performed By: #### L [id number] ####[facility] (BEAKER)[address] [place] [address] CO2 [Moles/Vol] 25.0 mmol/L Normal 21.0-29.0 [facility] Comment on above: Performed By: #### L [id number] ####[facility] (BE[facility]ER)[address] [place] [address] Glucose [Mass/Vol] 162 mg/dL High 70-105 [facility] Comment on above: Performed By: #### L [id number] ####[facility] (BE[facility])[address] [place] [address] HCO3 (Bld) [Moles/Vol] 23.4 mmol/L Normal 23.0-28.0 [facility] Comment on above: Performed By: #### L [id number] ####[facility] ([facility])[address] [place] [address] Hematocrit (Bld) [Volume fraction] 32 % Low 38-51 [facility] Comment on above: Performed By: #### L [id number] ####[facility] ([facility])[address] [place] [address] Hemoglobin (Bld) [Mass/Vol] 10.9 g/dL Low 12.0-17.0 [facility] Comment on above: Performed By: #### L [id number] ####[facility] ([facility]ER)[address] [address] POCT BASE EXCESS -2.0 mmol/L Normal -2.0-3.0 [facility] Comment on above: Performed By: #### L [id number] ####[facility] ([facility] [address] POCT IONIZED CALCIUM 1.20 mmol/L Normal 1.12-1.32 [facility] Comment on above: Performed By: #### L [id number] ####[facility] ([facility])[address] [address] POCT PCO2 43.6 mmHg Normal 41.0-51.0 [facility] Comment on above: Performed By: #### L [id number] ####[facility] ([facility] [address] POCT PH 7.34 Normal 7.31-7.41 [facility] Comment on above: Performed By: #### L [id number] ####[facility] ([facility])[address] [address] POCT PO2 225 mmHg High 80-105 [facility] Comment on above: Performed By: #### L [id number] ####[facility] ([facility]ER)[address] [address] POCT SO2 100 % High 95-98 [facility] Comment on above: Performed By: #### L [id number] ####[facility] (BEAKER)[address] [address] Potassium [Moles/Vol] 4.4 mmol/L Normal 3.5-4.9 [facility] Comment on above: Performed By: #### L [id number] ####[facility] (BEAKER)[address] [address] Sodium [Moles/Vol] 133 mmol/L Low 138.0-146 . 0 [facility] Comment on above: Performed By: #### L [id number] ####[facility] ([employer])[address] [place] [address] PROTIME-INRon 10-12-2023 INR IN PPP BY COAGULATION ASSAY 1.19 High 0.90-1.10 [facility] Comment on above: 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: In [...] CHEST 1995;108:[id number]. Performed By: #### L [id number] ####[facility] [employer])[address] [place] [address] PROTHROMBIN TIME (PT) IN PPP BY COAGULATION ASSAY 15.0 Seconds High 12.3-14.8 [facility] Comment on above: 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: In PA CU Performed By: #### L [id number] ####[facility] ([employer])[address] [place] [address] HPon 10-06-2023 HP SURGERY FOLLOWUP NOT E [...] ???F), temperature so (more content not included)... [facility] Office Visiton 10-06-2023 Follow-up visit [id number] Clarice Baker rd J 1940 M Date Provider Department Center 10/06/2023 [id number] BRYANT DCC ONC [facility] Family History Problem Relation Age of Onset Heart disease Mother No Known Problems Father No Known Problems Sister Family Status - Relation Status Age at Mother Father Sister Alive Level of Service:33931 AL OFFICE/OUTPATIENT ESTABLISHED LOW MDM 20 MIN Reason for Visit and Comments: Follow-up [037522] - Here for F/U of his gallbladder mass. Normal [facility] ANTI C3 DATon 09-17-2023 ANTI C3 ASHLEY Negative Normal [facility] Comment on above: 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: 2 uni ts Performed By: #### L [id number] ####[facility] BLOOD BANK, ANTI IGG DATon 09-17-2023 ANTI IGG ASHLEY Negative Normal [facility] Comment on above: 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: 2 uni ts Performed By: #### L [id number] #### [facility] (BEAKER) [address] [place] [address] ANTIBODY IDENTIFICATIONon ANTIBODY IDENTIFICATION [facility] Normal [facility] Comment on above: 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: 2 uni ts Performed By: #### L [id number] #### [facility] (BEAKER) [address] [place] [address] Labon 09-17-2023 Lab [id number] Clarice Bkaer minoo Melgoza 1940 M Date Provider Department Center 09/17/2023 2243-[facility] DCC LAB RESOURCE DCC DRAW [facility] Family History Problem Relation Age of Onset Heart disease Mother No Known Problems Father No Known Problems Sister Family Status - Relation Status Age at Mother Father Sister Alive Normal [facility] TYPE AND SCREENon 09-17-2023 AB SCREEN Positive Normal [facility] Comment on above: 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: 2 uni ts Performed By: #### L [id number] #### [facility] (BEAKER) [address] [place] [address] ABO group Nom (Bld) A Normal [facility] Comment on above: 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: 2 uni ts Performed By: #### L [id number] #### [facility] (BEAKER) [address] [place] [address] RH TYPE IN BLOOD Positive Normal [facility] Comment on above: 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: 2 uni ts Performed By: #### L [id number] #### [facility] (BEAKER) [address] [place] [address] Abstracton 09-14-2023 Abstract [id number] Clarice Baker minoo J 1940 M Date Provider Department Center 09/14/2023 [id number] ZUNIGA ONC [facility] Family History Problem Relation Age of Onset Heart disease Mother No Known Problems Father No Known Problems Sister Family Status - Relation Status Age at Mother Father Sister Alive Normal [facility] Abstracton 09-13-2023 Abstract [id number] Clarice Baker minoo J 1940 M Date Provider Department Center 09/13/2023 [id number] ZUNIGA ONC [facility] Family History Problem Relation Age of Onset Heart disease Mother No Known Problems Father No Known Problems Sister Family Status - Relation Status Age at Mother Father Sister Alive Normal [facility] ECH echo limitedon [facility] echo limited [facility] [place] [address] Echocardiogram Signed Patient: Chico Baker MR#: [id number] 284 : 1940 Acct:[id number] Age/Sex: 83 / M ADM Date: 08/31/23 Loc: Room: Type: [facility] Attending Dr: Sheri Christiansen MD Ordering Provider: Sheri Christiansen MD Date of Service: 08/31/23 [facility] echo limited: I35.0 - Nonrheumatic aortic (valve) [...] Judah Harrington MD 08/31/23 1723 Normal The Counts Include 234 [facility] FPG ECG *CARDIOLOGY ONLY*on 08-19-2023 FPG ECG *CARDIOLOGY ONLY* [facility] [place] [address] Electrocardiograph Report Signed Patient: Chico Baker MR#: [id number] 284 : 1940 Acct:[id number] Age/Sex: 83 / M ADM Date: 08/19/23 [facility]: Type: [facility] Attending Dr: Sheri Christiansen MD [...] rhythm Normal ECG Confirmed by Sheri Christiansen ([id number]) on 08/20/2023 12:14:54 AM Referred By: Electronically Signed By:Sheri Christiansen Transcribed By: MUS Signed By Sheri Christiansen MD 4 0014 Normal The Counts Include [facility] 29on 08-18-2023 29 Addended by: NICOLE MONTES on: 08/19/2023 11:25 AM Modules accepted: Orders Normal [facility] APTTon 08-18-2023 ACTIVATED PARTIAL THROMBOPLASTIN TIME IN PPP BY COAGULATION ASSAY 32.1 Seconds Normal 25.0-35.0 [facility] Comment on above: Result Comment: Clin ical significance of the APTT is questionable in the presence of heparin. Performed By: #### L [id number] #### [facility] (BEAKER) [address] [facility] [place] [address] CANCER ANTIGEN 19-9on 2023 CANCER AG 19-9 (U/ML) IN SER/PLAS <2 Normal <=35 [facility] Comment on above: Result Comment: INTE [...] or absence of malignant disease. Performed By: [facility] [address] [place] [address] Process Checker: Mario Mckeon MD, PhD CLIA Number: [id number] Performed By: #### L [id number] #### [facility] (BEAKER) [address] [place] [address] CBCon 08-18-2023 Erythrocyte distribution width (RBC) [Ratio] 12.6 % Normal 11.5-15.0 [facility] Comment on above: Performed By: #### L [id number] #### [facility] (BEAKER) [address] [place] [address] ERYTHROCYTE MEAN CORPUSCULAR HEMOGLOBIN CONCENTRATION (G/DL) BY AUTOMATED 32.3 g/dL Normal 32.0-35.0 [facility] Comment on above: Performed By: #### L [id number] #### [facility] (BEAKER) [address] [place] [address] Hematocrit (Bld) [Volume fraction] 37.8 % Low 39.0-55.0 [facility] Comment on above: Performed By: #### L [id number] #### [facility] (BEAKER) [address] [place] [address] Hemoglobin (Bld) [Mass/Vol] 12.2 g/dL Low 13.0-17.0 [facility] Comment on above: Performed By: #### L [id number] #### [facility] (BEAKER) [address] [place] [address] MCH (RBC) [Entitic mass] 30.7 pg Normal 27.0-33.0 [facility] Comment on above: Performed By: #### L [id number] #### [facility] ([facility]) [address] [place] [address] MCV (RBC) [Entitic vol] 95.0 fL Normal 82.0-98.0 [facility] Comment on above: Performed By: #### L [id number] #### [facility] ([facility]) [address] [place] [address] PLATELETS (10*3/UL) IN BLOOD AUTOMATED COUNT 206 10*3/uL Normal 150-400 [facility] Comment on above: Performed By: #### L [id number] #### [facility] ([facility]) [address] [place] [address] RBC (Bld) [#/Vol] 3.98 10*6/uL Low 4.20-5.70 [facility] Comment on above: Performed By: #### L [id number] #### [facility] ([facility]) [address] [place] [address] WBC (Bld) [#/Vol] 10.15 10*3/uL Normal 4.00-10.60 [facility] Comment on above: Performed By: #### L [id number] #### [facility] ([facility]) [address] [place] [address] COMPREHENSIVE METABOLIC PANE Santo 08-18-2023 Albumin [Mass/Vol] 4.1 g/dL Normal 3.5-5.7 [facility] Comment on above: Performed By: #### L [id number] #### [facility] ([facility]) [address] [place] [address] ALP [Catalytic activity/Vol] 122 U/L High 34-104 [facility] Comment on above: Performed By: #### L [id number] #### [facility] ([facility]) [address] [place] [address] ALT [Catalytic activity/Vol] 8 U/L Normal 7-52 [facility] Comment on above: Performed By: #### L [id number] #### [facility] ([facility]) [address] [place] [address] Anion gap [Moles/Vol] 12 mmol/L Normal 7-20 [facility] Comment on above: Performed By: #### L [id number] #### [facility] ([facility]) [address] [place] [address] AST [Catalytic activity/Vol] 12 U/L Low 13-39 [facility] Comment on above: Performed By: #### L [id number] #### [facility] ([facility]) [address] [place] [address] Bilirubin [Mass/Vol] 0.5 mg/dL Normal 0.3-1.0 [facility] Comment on above: Performed By: #### L [id number] #### [facility] ([facility]) [address] [place] [address] [address] Calcium [Mass/Vol] 8.9 mg/dL Normal 8.6-10.3 [facility] Comment on above: Performed By: #### L [id number] #### [facility] ([facility]) [address] [place] [address] Chloride [Moles/Vol] 102 mmol/L Normal 98-107 [facility] Comment on above: Performed By: #### L [id number] #### [facility] ([facility]) [address] [place] [address] CO2 [Moles/Vol] 26 mmol/L Normal 21-31 [facility] Comment on above: Performed By: #### L [id number] #### [facility] ([facility]) [address] [place] [address] Creatinine [Mass/Vol] 1.02 mg/dL Normal 0.70-1.30 [facility] Comment on above: Performed By: #### L [id number] #### [facility] (BE[facility]) [address] [place] [address] GLOMERULAR FILTRATION RATE ML/MIN/1.73 SQ M.PREDICTED 73.8 mL/min/1.73m*2 Normal >60.0 [facility] Comment on above: Result Comment: The [facility]???s estimated glomerular filtration rate (eGFR) will [...] individuals. Performed By: #### L [id number] #### [facility] ([facility]) [address] [place] [address] Glucose [Mass/Vol] 100 mg/dL Normal 70-100 [facility] Comment on above: Performed By: #### L [id number] #### [facility] ([facility]) [address] [place] [address] Potassium [Moles/Vol] 4.7 mmol/L Normal 3.5-5.1 [facility] Comment on above: Performed By: #### L [id number] #### [facility] ([facility]) [address] [place] [address] Protein [Mass/Vol] 7.8 g/dL Normal 6.0-8.3 [facility] Comment on above: Performed By: #### L [id number] #### [facility] [address] [place] [address] Sodium [Moles/Vol] 135 mmol/L Low 136-145 [facility] Comment on above: Performed By: #### L [id number] #### [facility] [address] [place] [address] Urea nitrogen [Mass/Vol] 24 mg/dL Normal 7-25 [facility] Comment on above: Performed By: #### L [id number] #### [facility] ([facility]) [address] [place] [address] UREA NITROGEN/CREATININE (MASS RATIO) IN SER/PLAS 23.5 Normal [facility] Comment on above: Performed By: #### L [id number] #### [facility] ([facility]) [address] [place] [address] Labon 08-18-[id number] 1940 M Date Provider Department [place] 08/18/2023 2242-[facility] RESOURCE [facility] Comprehensiv Family History Problem Relation Age of Onset Heart disease Mother No Known Problems Father No Known Problems Sister Family Status - Relation Status Age at Mother Father Sister Alive Normal [facility] Office Visiton 08-18-2023 Follow-up visit [id number] [address] 1940 M Date Provider Department [place] 08/18/2023 [id number] BRYANT ONC DCC Family History Problem Relation Age of Onset Heart disease Mother No Known Problems Father No Known Problems Sister Family Status - Relation Status Age at Mother Father Sister Alive Level of Service:38581 AL OFFICE/OUTPATIENT ESTABLISHED HIGH MDM 40 MIN Reason for Visit and Comments: 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 Review MRCP that was done yesterday. Normal [facility] PROTIME-INRon 08-18-2023 INR IN PPP BY COAGULATION ASSAY 1.03 Normal 0.90-1.10 [facility] Comment on above: Result Comment: ACCC [...] 1995;108:231S-246S. Performed By: #### L [id number] #### [facility] ([facility]) [address] [place] [address] PROTHROMBIN TIME (PT) IN PPP BY COAGULATION ASSAY 13.5 Seconds Normal 12.3-14.8 [facility] Comment on above: Performed By: #### L [id number] #### [facility] ([facility]) [address] [place] [address] TYPE AND SCREENon 08-18-2023 AB SCREEN Negative Normal [facility] Comment on above: Performed By: #### L [id number] #### [facility] ([facility]) [address] [place] [address] ABO group Nom (Bld) A Normal [facility] Comment on above: Performed By: #### L [id number] #### [facility] ([facility]) [address] [place] [address] RH TYPE IN BLOOD Positive Normal [facility] Comment on above: Performed By: #### L [id number] #### [facility] ([facility]) [address] [place] [address] MR ABDOMEN WO CONTRAST MRCPo n 08-17-2023 [...] Rodriguez MD. Not Vldtd Invalid Interpretation Code [facility] Comment on above: 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: Gallb ladder mass. 08-13-2023 29 Addended by: NICOLE MONTES on: 08/16/2023 11:34 AM Modules accepted: Orders Normal [facility] 29 Addended by: MARIA EUGENIA BERRY on: 08/13/2023 11:35 AM Modules accepted: Orders Normal [facility] Office Visiton 08-13-2023 Follow-up visit [id number] Clarice Baker minoo Melgoza 1940 M Date Provider Department Center 08/13/2023 465-MARIA EUGENIA BERRY ONC DCC Family History Problem Relation Age of Onset Heart disease Mother No Known Problems Father No Known Problems Sister Family Status - Relation Status Age at Mother Father Sister Alive Level of Service:NOCHG 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 Normal [facility] Orders Onlyon 08-04-2023 Orders Only [id number] Clarice Baker minoo Melgoza 1940 M Date Provider Department Center 08/04/2023 [id number], HISTORICAL DCC ONC DCC No family history on file Normal [facility] CT angio abdomen pelvison CT angio abdomen pelvis [facility] Main [place] [address] [place] [address] CT Scan Report Signed Patient: Chico Baker MR#: [id number] 284 : 1940 Acct:[id number] Age/Sex: 83 / M ADM Date: 06/16/23 Loc: CT Room: Type: [facility] Attending Dr: Raul Quan MD Copies to: [...] aortic 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 Performed By: #### I SCRE #### [facility] [address] [place] [address] No Panel InformationOrdered By: Raul Quan on 06-16-2023 Bedside Estimated GFR (eGFR) > 60.0 [facility] Whole blood creatinine measu rementOrdered By: Raul Quan on 06-16-2023 Creatinine [Mass/Vol] 0.9 mg/dL Normal 0.6-1.3 [facility] Comment on above: ER/ESD physician is notified/shown all ISTAT results.Critical values may be confirmed by laboratory testing ifdeemed necessary by ER attending doctor. Result Comment: ER/E SD physician is notified/shown all ISTAT results. Critical values may be confirmed by laboratory testing if deemed necessary by ER attending doctor. Performed By: #### I SCRE #### [facility] [address] [place] [address] Calculus Analysison 05-12-19 24 Calcium oxalate dihydrate Infrared spectroscopy (Stone) [Mass fraction] 20 % Invalid Interpretation Code [facility] Comment on above: Performed By: #### 1 [id number] ####[facility] [address] [place] [address] Calcium oxalate monohydrate (Stone) [Mass fraction] 80 % Invalid Interpretation Code [facility] Comment on above: Performed By: #### 1 [id number] ####[facility] [address] [place] [address] Color (Stone) Brown Invalid Interpretation Code [facility] Comment on above: Performed By: #### 1 [id number] ####[facility] [address] [place] [address] Composition Comment Invalid Interpretation Code [facility] Comment on above: Result Comment: Perc entage (Represents the % composition) Performed By: #### 1 [id number] ####[facility] [address] [place] [address] Disclaimer: Comment Invalid Interpretation Code [facility] Comment on above: Result Comment: This test was developed and its performance characteristics determined by [facility]. It has not been cleared or approved by the Food and Drug Administration. Performed at: [facility] [address] [id number] Emanuel Silverman Performed By: #### 1 [id number] ####[facility] [address] [place] [address] Laboratory comment Daniel (Report) Comment Invalid Interpretation Code [facility] Comment on above: Result Comment: Mina aguilar questions regarding Calculi Analysis contact [facility] at: [phone]. Performed By: #### 1 [id number] ####[address] [address] Please Note: Comment Invalid Interpretation Code [facility] Comment on above: Result Comment: Calc melissa report will follow via computer, mail or residential real estate assistant delivery. Performed By: #### 1 [id number] ####[place] [address] [place] [address] Size (Stone) [Entitic vol] 2x3 Invalid Interpretation Code [facility] Comment on above: Result Comment: Mult iple pieces received. Dimensions of the largest piece reported. Performed By: #### 1 [id number] ####[address] [address] Specimen source subject Nom Comment Invalid Interpretation Code [facility] Comment on above: Result Comment: Not provided Performed By: #### 1 [id number] ####[place] [place] [address] Stone Photo Comment Invalid Interpretation Code [facility] Comment on above: Result Comment: Phot ograph will follow under a separate cover Performed By: #### 1 [id number] ####[place] [place] [address] Weight (Stone) 12 mg Invalid Interpretation Code [facility] Comment on above: Performed By: #### 1 [id number] ####[facility] [address] [place] [address] Consent for Procedure/Surger yon 05-05-2023 Consent for Procedure/Surgery [id number]#1.00TIFF Normal [facility] RAD - MISCon 05-05-2023 RAD - MISC [id number]#1.00TIFF Normal [facility] Ambulatory Visit Summaryon 0 05-04-2023 Ambulatory Visit [...] Contact prescribing physician if questions or concerns [facility] Prescription (#####) aspirin (aspirin 81 mg oral [...] Ivelisse Hassan MD Where: [facility] [place] [facility] Patient Educationon 05-04-19 24 Patient Education Nephrology [...] ? 8 oz (237 mL) of milk, rogctwn-cuemkrgluowe-sqosn milk, and calcium-fortifiedfruit juice. Calcium-fortified means that [...] Spinach (cooked), rhubarb, beets, sweet potatoes, and Fijian chard. ? Peanuts. ? Potato chips, nauruan fries, and baked potatoes with skin on. ? Nuts and nut products. ? Chocolate. ? If you regularly take a diuretic medicine, make sure to eat at least 1 or 2 servings of fruits or vegetables that are high in potassium each day. These include: ? Avocado. ? Banana. ? Slope, prune, carrot, or tomato juice. ? Baked [...] fish oil, or vitamin B6. ? Take sjnw-ziz-hhhnduf and prescription medicines only as told by your health care provider. These include supplements. What foods sh (more content not included)... Normal [facility] RAD - MISCon 05-04-2023 [facility] [id number]#1.00TIFF [facility] Urology Office/Clinic Noteon 05-04-2023 Urology Office/Clinic [...] lower urinary tract symptoms) hx TURP by [facility] 2019, prostate small on 05/11/22 CT scan [...] All questions/concern (more content not included)... Normal [facility] Comment on above: Result Comment: Elec tronically Signed By: Mo LEIJA, Ivelisse Schreiber\.br\Date and Time Signed: 05/04/23 12:02 EST\.br\Electronically Co-Signed By: Eleonora Belcher\.br\Date and Time Co-Signed: 05/04/23 11:47 EST Operative Reporton Operative Report [id number]#1.00TIFF Normal [facility] Physician Orderon 04-29-2023 Physician Order [id number]#1.00TIFF Normal [facility] RAD - MISCon 04-28-2023 RAD - MISC [id number]#1.00TIFF [facility] Consultation Noteon 04-23-19 Consultation Note [id number]#1.00TIFF [facility] Formson 04-23-2023 Forms [id number]#1.00TIFF [facility] Consent for Procedure/Surger yon 04-21-2023 Consent for Procedure/Surgery [id number]#1.00TIFF [facility] Lab Reportson 04-21-2023 Lab Reports [id number]#1.00TIFF Normal [facility] Lab Reports [id number]#1.00TIFF [facility] Activated partial thrombopla stin time (aPTT) in platelet poor plasma by coagulation aon 04-20-2023 aPTT Coag (PPP) [Time] 32.6 s 22.3-36.2 [facility] Basophils Auto (Bld) [#/Vol] on 04-20-2023 Basophils (Bld) [#/Vol] 0.1 10 3/uL 0.0-0.1 [facility] Basophils/100 WBC Auto (Bld) on 04-20-2023 Basophils/100 WBC (Bld) 0.5 % 0.2-2.0 [facility] Eosinophils/100 WBC Auto (Bl d)on 04-20-2023 Eosinophils/100 WBC (Bld) 1.2 % 0.9-7.0 [facility] Erythrocyte distribution wid th Auto (RBC) [Ratio]on 04-20-2023 Erythrocyte distribution width (RBC) [Ratio] 12.4 % 11.0-15.0 [facility] Estimated glomerular filtrat ion rate (GFR) non- Americanon 04-20-2023 GFR/1.73 sq M.predicted among non-blacks MDRD (S/P/Bld) [Vol rate/Area] mL/min/{1.73_m2} >=60 [facility] Formson 04-20-2023 Forms [id number]#1.00TIFF Normal [facility] Hematocrit Auto (Bld) [Volum e fraction]on 04-20-2023 Hematocrit (Bld) [Volume fraction] 36.7 % 42.0-54.0 [facility] Hemoglobin [Mass/volume] in Bloodon 04-20-2023 Hemoglobin (Bld) [Mass/Vol] 11.5 g/dL 14.0-18.0 [facility] INR in Platelet poor plasma by Coagulation assayon 04-20-2023 INR Coag (PPP) [Relative time] 1.01 {INR} [facility] Comment on above: DESIRED INR:2.0-3.0 CONDITIONS NOT LISTED BELOW2.5-3.5 FOR PROSTHETIC HEART VALVE REPLACEMENT2.5-3.5 RECURRENT THROMBOSIS Laboratory - Chemistry and C hemistry - challengeon 04-20-2023 Calcium [Mass/Vol] 9.0 mg/dL 8.5-10.1 [facility] Chloride [Moles/Vol] 104 mmol/L 98-107 [facility] CO2 [Moles/Vol] 28.9 mmol/L 21.0-32.0 [facility] Creatinine [Mass/Vol] 0.89 mg/dL 0.70-1.30 [facility] GFR/1.73 sq M.predicted MDRD (S/P/Bld) [Vol rate/Area] mL/min/{1.73_m2} >=60 [facility] Glucose [Mass/Vol] 133 mg/dL 74-106 [facility] Potassium [Moles/Vol] 4.6 mmol/L 3.5-5.1 [facility] Sodium [Moles/Vol] 140 mmol/L 136-145 [facility] Urea nitrogen [Mass/Vol] 15.0 mg/dL 7.0-18.0 [facility] Urea nitrogen/Creatinine [Mass ratio] 16.9 mg/mg [facility] Laboratory - Hematology and Cell countson 04-20-2023 Immature granulocytes/100 WBC (Bld) 0.3 % 0.0-0.5 [facility] Leukocytes [#/volume] correc shyann for nucleated erythrocytes in Blood by Automated counon 04-20-2023 WBC corrected for nucl RBC Auto (Bld) [#/Vol] 9.9 10 3/uL 4.0-11.0 [facility] Lymphocytes Auto (Bld) [#/Vo l]on 04-20-2023 Lymphocytes (Bld) [#/Vol] 1.1 10 3/uL 1.2-3.8 [facility] Lymphocytes/100 WBC Auto (Bl d)on 04-20-2023 Lymphocytes/100 WBC (Bld) 11.3 % 20.5-60.0 [facility] MCH Auto (RBC) [Entitic mass ]on 04-20-2023 MCH (RBC) [Entitic mass] 29.6 pg 25.9-34.0 [facility] MCHC Auto (RBC) [Mass/Vol]on 04-20-2023 MCHC (RBC) [Mass/Vol] 31.3 g/dL 29.9-35.2 [facility] MCV Auto (RBC) [Entitic vol] on 04-20-2023 MCV (RBC) [Entitic vol] 94.6 fL 80.0-94.0 [facility] Monocytes Auto (Bld) [#/Vol] on 04-20-2023 Monocytes (Bld) [#/Vol] 0.8 10 3/uL 0.3-0.8 [facility] Monocytes/100 WBC Auto (Bld) on 04-20-2023 Monocytes/100 WBC (Bld) 8.5 % 1.7-12.0 [facility] Neutrophils Auto (Bld) [#/Vo l]on 04-20-2023 Neutrophils (Bld) [#/Vol] 7.8 10 3/uL 1.4-6.5 [facility] Neutrophils/100 WBC Auto (Bl d)on 04-20-2023 Neutrophils/100 WBC (Bld) 78.2 % 43.0-75.0 [facility] No Panel Informationon 04-20 Eosinophils # (Auto) 0.1 10 3/uL 0.0-0.7 [facility] Immature Granulocyte # (Auto) 0.03 10 3/uL 0.00-0.03 [facility] Platelet mean volume Auto (B ld) [Entitic vol]on 04-20-2023 Platelet mean volume (Bld) [Entitic vol] 9.4 fL 9.5-13.5 [facility] Platelets Auto (Bld) [#/Vol] on 04-20-2023 Platelets (Bld) [#/Vol] 188 10 3/uL 150-450 [facility] Prothrombin time (PT)on 04-08 PT Coag (PPP) [Time] 10.7 s 9.0-11.6 [facility] RBC Auto (Bld) [#/Vol]on RBC (Bld) [#/Vol] 3.88 10 6/uL 4.70-6.10 [facility] Serum or plasma anion gap de terminationon 04-20-2023 Anion gap [Moles/Vol] 11.7 mmol/L [facility] RAD - MISCon 04-08-2023 RAD - MISC [id number]#1.00TIFF Normal [facility] Operative Reporton Operative Report [id number]#1.00TIFF Normal [facility] RAD - MISCon 03-25-2023 RAD - MIS [id number]#1.00TIFF Normal [facility] Consent for Procedure/Surger yon 03-22-2023 Consent for Procedure/Surgery [id number]#1.00TIFF Normal [facility] Lab Reportson 03-19-2023 Lab Reports [id number]#1.00TIFF Normal [facility] RAD - MISCon 03-19-2023 RAD - MIS [id number]#1.00TIFF Normal [facility] Reminderson 03-03-2023 Reminders - From: Faviola Clemens To: EU - Recalls Lue; Sent: 01/13/2023 10:01:25 EST Show up: 02/12/2023 10:01:00 EST Subject: LINDSEY and KUB Due Date/Time: 02/12/2023 10:01:00 EST Pt to have LINDSEY and KUB done in March at [facility]. Orders placed. Possible ESWL pending size of stones. No follow up at this time. Pt to be called with results. Called pt and reminded him to complete LINDSEY/KUB @ [facility] in the next month. Orders were [...] 02/22/2023 16:05:00 EST From: Belkis Johnson MA ([facility]) To: Ivelisse Hassan MD; Sent: [...] RO Patient is scheduled for 03/24/22 @ [facility] Comment on above: Result Comment: Miss ing Attachment - attachment exceeds size limitation (02/19/2023) RAD - Ultrasound Report Can be viewed in source system Missing Attachment - attachment exceeds size limitation (02/19/2023) RAD - MISC Can be viewed in source system RAD - MISCon 02-22-2023 RAD - MISC [id number]#1.00TIFF [facility] RAD - Ultrasound Reporton RAD - Ultrasound Report [id number]#1.00TIFF [facility] Screenson 01-14-2023 Screens [id number]#1.00TIFF Normal [facility] Screens [id number]#1.00TIFF Normal [facility] Patient Educationon 01-14-20 Patient Education Urology Benign [...] Follow these instructions at home: ? Take zejy-tqt-iuxfpra and prescription medicines only as told by [...] (more content not included)... Normal [facility] Urology Office/Clinic Noteon 01-13-2023 Urology Office/Clinic Note [...] with voice recognition artificial intelligence software, specifically [employer], [employer] and or [employer]. Substitutions may have occurred due to the [...] (more content not included)... Normal [facility] Comment on above: Result Comment: Elec tronically Signed By: Ivelisse Hassan MD\.br\Date and Time Signed: 01/13/23 16:25 EST\.br\Electronically Co-Signed By: Faviola Clemens\.br\Date and Time Co-Signed: 01/13/23 09:59 EST US carotid doppler BIon 09-0 US carotid doppler BI [facility] [place] [address] Ultrasound Report Signed Patient: Chico Baker MR#: [id number] 284 : 1940 Acct:[id number] Age/Sex: 82 / M ADM Date: 11/10/22 Loc: [facility] Room: Type: [facility] Attending Dr: Raul Quan MD Ordering Provider: [...] Raul Quan M.D.11/10/2022 10:30 AM Dictation Location: [place] [address] Tech: Harika Pradhan Transcribed By: ALEX 11/10/22 1030 Dictated By: Raul Quan MD 11/10/22 1029 Signed By: 11/10/22 1030 Normal [facility] [place] 10-08-2022 Screens [id number]#1.00CD:127 Normal [facility] Screens [id number]#1.00CD:127 Normal [facility] Ambulatory Visit Summaryon 0 10-07-2022 Ambulatory Visit Summary CHICO BAKER :1940 Visit Date:10/07/2022 Ambulatory Visit Instructions Your Diagnosis BPH with obstruction/lower urinary tract symptoms History of kidney stones Asymptomatic microscopic hematuria 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 Tests Performed Urnls Dip Stick Auto w/o Microscopy POC [id number] Your Care Team Attending Physician - Ivelisse [...] MD Where: [facility] Normal [facility] Patient Educationon 10-08-19 Patient Education Urology Benign [...] Follow these instructions at home: ? Take swbw-fma-hqedwts and prescription medicines only as told by [...] (more content not included)... Normal [facility] Urology Office/Clinic Noteon 10-07-2022 Urology Office/Clinic Note [...] lower urinary tract symptoms) hx TURP by [facility] 2019, prostate small on 05/11/22 CT scan [...] (more content not included)... Normal [facility] Comment on above: Result Comment: Elec tronically Signed By: Ivelisse Hassan MD\.br\Date and Time Signed: 10/07/22 10:28 EDT\.br\Electronically Co-Signed By: Eleonora Belcher\.br\Date and Time Co-Signed: 10/07/22 09:25 EDT Consent for Procedure/Surger yon 07-29-2022 Consent for Procedure/Surgery [id number]#[id number]:127 Normal [facility] Patient Educationon 07-29-19 Patient Education Urology Erectile [...] these instructions at home: Medicines ? Take qawt-soi-xwqrrac and prescription medicines only as told by [...] (more content not included)... Normal [facility] Urology Office/Clinic Noteon 07-28-2022 Urology Office/Clinic Note [...] urine The Urethra was dilated to: 16-24 [place] with connor sounds without difficulty Soft 14 [...] (more content not included)... Normal [facility] Comment on above: Result Comment: Elec tronically Signed By: Ivelisse Hassan MD\.br\Date and Time Signed: 07/28/22 10:49 EDT\.br\Electronically Co-Signed By: Clarissa Joaquin MA.aida\Date and Time Co-Signed: 07/28/22 10:28 EDT Blood activated clotting sue e by coagulation assayOrdered By: Raul Quan on 07-08-2022 ACT Coag (Bld) 335 s 90-139 [facility] Comment on above: Reference Range: 90- 139 (Non-heparinized) Laboratory - CoagulationOrde red By: Raul Quan on 07-08-2022 PT Coag (PPP) [Time] 11.7 s 9.0-12.9 [facility] Platelet poor plasma interna tional normalized ratio (INR) by coagulation assay (relatOrdered By: Raul Quan on 07-08-2022 INR Coag (PPP) [Relative time] 1.0 {INR} [facility] Comment on above: INR Therapeutic [...] 07-01-2022 ALT [Catalytic activity/Vol] 9 U/L 7-52 [facility] Albumin [Mass/volume] in Ser um or Plasma by Bromocresol green (BCG) dye binding methoOrdered By: Raul Quan on 07-01-2022 Albumin BCG dye [Mass/Vol] 3.7 g/dL 3.5-5.7 [facility] Alkaline phosphatase [Enzyma tic activity/volume] in Serum or PlasmaOrdered By: Raul Quan on 07-01-2022 ALP [Catalytic activity/Vol] 96 U/L 34-104 [facility] Aspartate aminotransferase [ Enzymatic activity/volume] in Serum or PlasmaOrdered By: Raul Quan on 07-01-2022 AST [Catalytic activity/Vol] 14 U/L 13-39 [facility] Basophils Auto (Bld) [#/Vol] Ordered By: Raul Quan on 07-01-2022 Basophils (Bld) [#/Vol] 0.1 10*3/uL 0.0-0.2 [facility] Basophils/100 WBC Auto (Bld) Ordered By: Raul Quan on 07-01-2022 Basophils/100 WBC (Bld) 0.7 % . [facility] Bilirubin.total [Mass/volume ] in Serum or PlasmaOrdered By: Raul Quan on 07-01-2022 Bilirubin [Mass/Vol] 0.5 mg/dL 0.3-1.0 [facility] Calcium [Mass/volume] in Ser um or PlasmaOrdered By: Raul Quan on 07-01-2022 Calcium [Mass/Vol] 8.5 mg/dL 8.6-10.3 [facility] Carbon dioxide, total [Moles /volume] in Serum or PlasmaOrdered By: Raul Quan on 07-01-2022 CO2 [Moles/Vol] 24.6 mmol/L 21.0-31.0 [facility] Chloride [Moles/volume] in S aisha or PlasmaOrdered By: Raul Quan on 07-01-2022 Chloride [Moles/Vol] 100 mmol/L 98-107 [facility] Creatinine [Mass/volume] in Serum or PlasmaOrdered By: Raul Quan on 07-01-2022 Creatinine [Mass/Vol] 0.87 mg/dL 0.70-1.30 [facility] Eosinophils Auto (Bld) [#/Vo l]Ordered By: Raul Quan on 07-01-2022 Eosinophils (Bld) [#/Vol] 0.1 10*3/uL 0.0-0.45 [facility] Eosinophils/100 WBC Auto (Bl d)Ordered By: Raul Quan on 07-01-2022 Eosinophils/100 WBC (Bld) 1.5 % . [facility] Erythrocyte distribution wid th Auto (RBC) [Ratio]Ordered By: Raul Quan on 07-01-2022 Erythrocyte distribution width (RBC) [Ratio] 13.0 % 12.0-14.8 [facility] Globulin Calc (S) [Mass/Vol] Ordered By: Raul Quan on 07-01-2022 Globulin (S) [Mass/Vol] 3.4 g/dL [facility] Glucose [Mass/volume] in Ser um or PlasmaOrdered By: Raul Quan on 07-01-2022 Glucose [Mass/Vol] 163 mg/dL 70-100 [facility] Comment on above: ADA recommended refe rence rangeRandom Glucose Reference Range is dependent on time and content of last meal. Glucose of more than 200 mg/dL in a nonstressed, ambulatory subject supports the diagnosis of Diabetes Mellitus. Hematocrit Auto (Bld) [Volum e fraction]Ordered By: Raul Quan on 07-01-2022 Hematocrit (Bld) [Volume fraction] 36.4 % 38.8-50.0 [facility] Hemoglobin [Mass/volume] in BloodOrdered By: Raul Quan on 07-01-2022 Hemoglobin (Bld) [Mass/Vol] 12.1 g/dL 13.0-17.0 [facility] Leukocytes [#/volume] correc shyann for nucleated erythrocytes in Blood by Automated counOrdered By: Raul Quan on 07-01-2022 WBC corrected for nucl RBC Auto (Bld) [#/Vol] 8.5 10*3/uL 4.1-10.5 [facility] Lymphocytes Auto (Bld) [#/Vo l]Ordered By: Raul Quan on 07-01-2022 Lymphocytes (Bld) [#/Vol] 1.6 10*3/uL 1.00-4.8 [facility] Lymphocytes/100 WBC Auto (Bl d)Ordered By: Raul Quan on 07-01-2022 Lymphocytes/100 WBC (Bld) 19.3 % . [facility] MCH Auto (RBC) [Entitic mass ]Ordered By: Raul Quan on 07-01-2022 MCH (RBC) [Entitic mass] 30.2 pg 27.5-35.2 [facility] MCHC Auto (RBC) [Mass/Vol]Or dered By: Raul Quan on 07-01-2022 MCHC (RBC) [Mass/Vol] 33.3 g/dL 32.5-35.6 [facility] MCV Auto (RBC) [Entitic vol] Ordered By: Raul Quan on 07-01-2022 MCV (RBC) [Entitic vol] 90.7 fL 83.5-101 [facility] Monocytes Auto (Bld) [#/Vol] Ordered By: Raul Quan on 07-01-2022 Monocytes (Bld) [#/Vol] 0.9 10*3/uL 0.0-0.8 [facility] Monocytes/100 WBC Auto (Bld) Ordered By: Raul Quan on 07-01-2022 Monocytes/100 WBC (Bld) 11.1 % . [facility] Neutrophils Auto (Bld) [#/Vo l]Ordered By: Raul Quan on 07-01-2022 Neutrophils (Bld) [#/Vol] 5.7 10*3/uL 1.8-7.7 [facility] Neutrophils/100 WBC Auto (Bl d)Ordered By: Raul Quan on 07-01-2022 Neutrophils/100 WBC (Bld) 67.4 % . [facility] No Panel InformationOrdered By: Raul Quan on 07-01-2022 Estimated GFR (CKD-EPI) > 60.0 mL/Min [facility] Creatinine Clearance (Chem N/A [facility] Nucleated erythrocytes [Pres ence] in Blood by Automated countOrdered By: Raul Quan on 07-01-2022 Nucleated RBC Auto Ql (Bld) 0.0 /100{WBC} 0-0.5 [facility] Platelet mean volume Auto (B ld) [Entitic vol]Ordered By: Raul Quan on 07-01-2022 Platelet mean volume (Bld) [Entitic vol] 7.6 fL 6.6-10.1 [facility] Platelets Auto (Bld) [#/Vol] Ordered By: Raul Quan on 07-01-2022 Platelets (Bld) [#/Vol] 198 10*3/uL 150-450 [facility] Potassium [Moles/volume] in Serum or PlasmaOrdered By: Raul Quan on 07-01-2022 Potassium [Moles/Vol] 4.4 mmol/L 3.5-5.1 [facility] Protein [Mass/volume] in Ser um or PlasmaOrdered By: Raul Quan on 07-01-2022 Protein [Mass/Vol] 7.1 g/dL 6.4-8.9 [facility] RBC Auto (Bld) [#/Vol]Ordere d By: Raul Quan on 07-01-2022 RBC (Bld) [#/Vol] 4.01 10*6/uL 3.90-5.60 [facility] Serum or plasma albumin/glob ulin mass ratioOrdered By: Raul Quan on 07-01-2022 Albumin/Globulin [Mass ratio] 1.1 {ratio} [facility] Serum or plasma anion gap de terminationOrdered By: Raul Quan on 07-01-2022 Anion gap [Moles/Vol] 13.8 mmol/L 6.0-15.0 [facility] Sodium [Moles/volume] in Ser um or PlasmaOrdered By: Raul Quan on 07-01-2022 Sodium [Moles/Vol] 134 mmol/L 136-145 [facility] Urea nitrogen [Mass/volume] in Serum or PlasmaOrdered By: Raul Quan on 07-01-2022 Urea nitrogen [Mass/Vol] 17 mg/dL 7-25 [facility] WBC Auto (Bld) [#/Vol]Ordere d By: Raul Quan on 07-01-2022 WBC (Bld) [#/Vol] 8.5 10*3/uL 4.1-10.5 [facility] Patient Educationon 06-25-19 Patient Education Urology Hematuria, [...] these instructions at home: Medicines ? Take gvly-kcn-irbknbi and prescription medicines only as told by [...] the blood stops without treatment. ? Take vjpr-wub-eabwuok and prescription medicines only as told by your health care provider. ? Drink enough fluid to keep your urine pale yellow. This information is not intended to replace advice given to you by your health care provider. Make sure you discuss any questions you have with your health care provider. Document Revised: 10/23/2020 Document Reviewed: 10/23/2020 [employer] Patient Education ? 2022 [employer]. Normal [facility] Screenson 06-24-2022 Screens [id number]#[id number]:127 [facility] Screens [id number]#[id number]:127 [facility] Urology Office/Clinic Noteon 06-24-2022 Urology Office/Clinic [...] Urnls Dip Stick Auto w/o Microscopy POC 70500 Urology Procedure Order 4. Penile rash (R21: Rash and other nonspecific skin eruption) Pt states rash has completely cleared up after stopping Bactrim. Denies irritation. Head of penis is not red, but is discolored. Not bothersome. D/c use of cream. Resolved Ordered: Urology Procedure Order 5. ED (erectile dysfunction) (N52.9: Male erectile dysfunction, unspecified) (more content not included)... Normal [facility] Comment on above: Result Comment: Elec tronically Signed By: Mo LEIJA, Ivelisse Schreiber\.br\Date and Time Signed: 06/24/22 10:24 EDT RAD - CT Reporton 05-14-2022 RAD - CT Report [id number]#[id number]:127 Normal [facility] Creatinine (Bld) [Mass/Vol]O rdered By: Raul Quan on 05-11-2022 Creatinine [Mass/Vol] 0.9 mg/dL 0.6-1.3 [facility] Comment on above: ER/ESD physician is notified/shown all ISTAT results.Critical values may be confirmed by laboratory testing ifdeemed necessary by ER attending doctor. No Panel InformationOrdered By: Raul Quan on 05-11-2022 POC Estimated GFR > 60 [facility] Comment on above: GFR estimated refere nce range: According to KDOQI guidelines, <60 ml/min/1.73m2 is sufficient to diagnose a patient with chronic kidney disease. POC Estimated GFR Non- Amer > 60 [facility] URINALYSISOrdered By: Kirstie sanchez on [...] Interpretation Code Negative [facility] UA Auto SS [place].plasma/[place] .RBC (Bld) [Mass ratio] 21-30 /HPF Invalid [...] [facility] UA Auto SS Urobilinogen Qn (U) [id number] {Nikki'U}/dL Normal 0.0 - 1.0 EU/dL [facility] [...] Interpretation Code Negative [facility] UA Auto SS [place].plasma/[place] .RBC (Bld) [Mass ratio] 4-20 /HPF Normal [...] Random Urine (02/11/22 10:38 AM) Normal [facility] UA Auto SS Urobilinogen Qn (U) [id number] {Nikki'U}/dL Normal 0.0 - 1.0 EU/dL [facility] UA Auto SS WBC Auto Ql (U) 1+ *ABN* (02/11/22 10:38 AM) Invalid Interpretation Code Negative [facility] UA Auto SS WBC LM.HPF (Urine sed) [#/Area] 0-5 /HPF Normal 0-5/HPF [facility] UA Auto SS Basophils Auto (Bld) [#/Vol] Ordered By: Raul Quan on 02-05-2022 Basophils (Bld) [#/Vol] 0.1 10*3/uL 0.0-0.2 [facility] Basophils/100 WBC Auto (Bld) Ordered By: Raul Quan on 02-05-2022 Basophils/100 WBC (Bld) 0.6 % . [facility] Creatinine and Glomerular fi ltration rate.predicted panel (S/P/Bld)Ordered By: Raul Quan on 02-05-2022 Creatinine [Mass/Vol] 0.94 mg/dL 0.64-1.27 [facility] Eosinophils Auto (Bld) [#/Vo l]Ordered By: Raul Quan on 02-05-2022 Eosinophils (Bld) [#/Vol] 0.1 10*3/uL 0.0-0.45 [facility] Eosinophils/100 WBC Auto (Bl d)Ordered By: Raul Quan on 02-05-2022 Eosinophils/100 WBC (Bld) 0.7 % . [facility] Erythrocyte distribution wid th Auto (RBC) [Ratio]Ordered By: Raul Quan on 02-05-2022 Erythrocyte distribution width (RBC) [Ratio] 13.8 % 12.0-14.8 [facility] Estimated glomerular filtrat ion rate (GFR) non- AmericanOrdered By: Raul Quan on 02-05-2022 GFR/1.73 sq M.predicted among non-blacks MDRD (S/P/Bld) [Vol rate/Area] > 60 mL/Min [facility] Hematocrit Auto (Bld) [Volum e fraction]Ordered By: Raul Quan on 02-05-2022 Hematocrit (Bld) [Volume fraction] 34.6 % 38.8-50.0 [facility] Hemoglobin [Mass/volume] in BloodOrdered By: Raul Quan on 02-05-2022 Hemoglobin (Bld) [Mass/Vol] 11.4 g/dL 13.0-17.0 [facility] Leukocytes [#/volume] correc shyann for nucleated erythrocytes in Blood by Automated counOrdered By: Raul Quan on 02-05-2022 WBC corrected for nucl RBC Auto (Bld) [#/Vol] 10.3 10*3/uL 4.1-10.5 [facility] Lymphocytes Auto (Bld) [#/Vo l]Ordered By: Raul Quan on 02-05-2022 Lymphocytes (Bld) [#/Vol] 1.5 10*3/uL 1.00-4.8 [facility] Lymphocytes/100 WBC Auto (Bl d)Ordered By: Raul Quan on 02-05-2022 Lymphocytes/100 WBC (Bld) 14.4 % . [facility] MCH Auto (RBC) [Entitic mass ]Ordered By: Raul Quan on 02-05-2022 MCH (RBC) [Entitic mass] 30.1 pg 27.5-35.2 [facility] MCHC Auto (RBC) [Mass/Vol]Or dered By: Raul Quan on 02-05-2022 MCHC (RBC) [Mass/Vol] 32.9 g/dL 32.5-35.6 [facility] MCV Auto (RBC) [Entitic vol] Ordered By: Raul Quan on 02-05-2022 MCV (RBC) [Entitic vol] 91.6 fL 83.5-101 [facility] Monocytes Auto (Bld) [#/Vol] Ordered By: Raul Quan on 02-05-2022 Monocytes (Bld) [#/Vol] 1.5 10*3/uL 0.0-0.8 [facility] Monocytes/100 WBC Auto (Bld) Ordered By: Raul Quan on 02-05-2022 Monocytes/100 WBC (Bld) 14.8 % . [facility] Neutrophils Auto (Bld) [#/Vo l]Ordered By: Raul Quan on 02-05-2022 Neutrophils (Bld) [#/Vol] 7.1 10*3/uL 1.8-7.7 [facility] Neutrophils/100 WBC Auto (Bl d)Ordered By: Raul Quan on 02-05-2022 Neutrophils/100 WBC (Bld) 69.5 % . [facility] No Panel InformationOrdered By: Raul Quan on 02-05-2022 Estimated GFR () > 60 mL/Min [facility] Comment on above: GFR estimated refere nce range: According to KDOQI guidelines, <60 ml/min/1.73m2 is sufficient to diagnose a patient with chronic kidney disease. Pharmacy Creatinine Clearance (Chem 57.50 [facility] Nucleated erythrocytes [Pres ence] in Blood by Automated countOrdered By: Raul Quan on 02-05-2022 Nucleated RBC Auto Ql (Bld) 0.1 /100{WBC} 0-0.5 [facility] Platelet mean volume Auto (B ld) [Entitic vol]Ordered By: Raul Quan on 02-05-2022 Platelet mean volume (Bld) [Entitic vol] 7.9 fL 6.6-10.1 [facility] Platelets Auto (Bld) [#/Vol] Ordered By: Raul Quan on 02-05-2022 Platelets (Bld) [#/Vol] 142 10*3/uL 150-450 [facility] Comment on above: Delta: 198 on -08 RBC Auto (Bld) [#/Vol]Ordere d By: Raul Quan on 02-05-2022 RBC (Bld) [#/Vol] 3.77 10*6/uL 3.90-5.60 [facility] Serum or plasma anion gap de terminationOrdered By: Raul Quan on 02-05-2022 Anion gap [Moles/Vol] 10.4 mmol/L 6.0-15.0 [facility] Serum or plasma calcium richy urement (mass/volume)Ordered By: Raul Quan on 02-05-2022 Calcium [Mass/Vol] 8.4 mg/dL 8.2-10.2 [facility] Serum or plasma chloride young surement (moles/volume)Ordered By: Raul Quan on 02-05-2022 Chloride [Moles/Vol] 101 mmol/L 95-114 [facility] Serum or plasma glucose richy urement (mass/volume)Ordered By: Raul Quan on 02-05-2022 Glucose [Mass/Vol] 109 mg/dL 70-100 [facility] Comment on above: ADA recommended refe rence rangeRandom Glucose Reference Range is dependent on time and content of last meal. Glucose of more than 200 mg/dL in a nonstressed, ambulatory subject supports the diagnosis of Diabetes Mellitus. Serum or plasma potassium me asurement (moles/volume)Ordered By: Raul Quan on 02-05-2022 Potassium [Moles/Vol] 4.6 mmol/L 3.5-5.1 [facility] Serum or plasma sodium measu rement (moles/volume)Ordered By: Raul Quan on 02-05-2022 Sodium [Moles/Vol] 135 mmol/L 136-146 [facility] Serum or plasma total carbon dioxide measurement (moles/volume)Ordered By: Raul Quan on 02-05-2022 CO2 [Moles/Vol] 28.2 mmol/L 22.0-30.0 [facility] Serum or plasma urea nitroge n measurement (mass/volume)Ordered By: Raul Quan on 02-05-2022 Urea nitrogen [Mass/Vol] 11 mg/dL 11-28 [facility] WBC Auto (Bld) [#/Vol]Ordere d By: Raul Quan on 02-05-2022 WBC (Bld) [#/Vol] 10.3 10*3/uL 4.1-10.5 [facility] Covid-19 PCR (CVDTB)on 01-07 SARS-CoV-2 (COVID-19) RNA JESSIE+probe Ql (Unsp spec) Not detected Normal NOT DETECTED [facility] Comment on above: Result Comment: This test is not yet approved or cleared by the [place] FDA. When there are no FDA-approved or cleared tests available, and other criteria are met, FDA can make tests available under an emergency access mechanism called an Emergency Use Authorization (EUA). The EUA for this test is supported by the [place] of Health and Human Service's (HHS's) declaration [...] SARS-CoV-2. Performed By: #### C VDTB #### [facility] [address] [address] [address] Jodi Oglesby CBC AUTO DIFFon 12-08-2021 BASO # 0.1 103/ul Normal 0.0-0.1 [facility] Comment on above: Performed By: #### D ATA1C #### [facility] [address] [place] [address] Dr. Jodi Oglesby Basophils/100 WBC (Bld) 0.5 % Normal 0.2-2.0 [facility] Comment on above: Performed By: #### D ATA1C #### [facility] [address] [place] [address] Dr. oJdi Oglesby EO # 0.1 103/ul Normal 0.0-0.7 [facility] Comment on above: Performed By: #### D ATA1C #### [facility] [address] [place] [address] Dr. Jodi Oglesby Eosinophils/100 WBC (Bld) 1.4 % Normal 0.9-7.0 [facility] Comment on above: Performed By: #### D ATA1C #### [facility] [address] [place] [address] Dr. Jdoi Oglesby Erythrocyte distribution width (RBC) [Ratio] 13.0 % Normal 11.0-15.0 [facility] Comment on above: Performed By: #### D ATA1C #### [facility] [address] [place] [address] Dr. Jodi Oglesby Hematocrit (Bld) [Volume fraction] 36.1 % Critically low 42.0-54.0 [facility] Comment on above: Performed By: #### D ATA1C #### [facility] [address] [place] [address] Dr. Jodi Oglesby Hemoglobin (Bld) [Mass/Vol] 11.2 g/dL Critically low 14.0-18.0 [facility] Comment on above: Performed By: #### D ATA1C #### [facility] [address] [place] [address] Dr. Jodi Oglesby IG # 0.04 10e3/ul Critically high 0.00-0.03 [facility] Comment on above: Performed By: #### D ATA1C #### [facility] [address] [place] [address] Dr. Jodi Oglesby IG % 0.4 % Normal 0.0-0.5 [facility] Comment on above: Performed By: #### D ATA1C #### [facility] [address] [place] [address] Dr. Jodi Oglesby LYMPH # 1.8 103/ul Normal 1.2-3.8 [facility] Comment on above: Performed By: #### D ATA1C #### [facility] [address] [place] [address] Dr. Jodi Oglesby Lymphocytes/100 WBC (Bld) 17.2 % Critically low 20.5-60.0 [facility] Comment on above: Performed By: #### D ATA1C #### [facility] [address] [place] [address] Dr. Jodi Oglesby MANUAL DIFF REQ NO Normal [facility] Comment on above: Performed By: #### D ATA1C #### [facility] [address] [place] [address] Dr. Jodi Oglesby MCH (RBC) [Entitic mass] 30.4 pg Normal 25.9-34.0 [facility] Comment on above: Performed By: #### D ATA1C #### [facility] [address] [place] [address] Dr. Jodi Oglesby MCHC (RBC) [Mass/Vol] 31.0 g/dL Normal 29.9-35.2 [facility] Comment on above: Performed By: #### D ATA1C #### [facility] [address] [place] [address] Dr. Jodi Oglesby MCV (RBC) [Entitic vol] 98.1 fL Critically high 80.0-94.0 [facility] Comment on above: Performed By: #### D ATA1C #### [facility] [address] [place] [address] Dr. Jodi Oglesby MONO # 1.0 103/ul Critically high 0.3-0.8 [facility] Comment on above: Performed By: #### D ATA1C #### [facility] [address] [place] [address] Dr. Jodi Oglesby Monocytes/100 WBC (Bld) 9.8 % Normal 1.7-12.0 [facility] Comment on above: Performed By: #### D ATA1C #### [facility] [address] [place] [address] Dr. Jodi Oglesby NEUT # 7.3 103/ul Critically high 1.4-6.5 [facility] Comment on above: Performed By: #### D ATA1C #### [facility] [address] [place] [address] Dr. Jodi Oglesby Neutrophils/100 WBC (Bld) 70.7 % Normal 43.0-75.0 [facility] Comment on above: Performed By: #### D ATA1C #### [facility] [address] [place] [address] Dr. Jodi Oglesby Platelet mean volume (Bld) [Entitic vol] 9.1 fL Critically low 9.5-13.5 [facility] Comment on above: Performed By: #### Chavez ATA1C #### [facility] [address] [place] [address] Dr. Jodi Oglesby PLT 214 103/ul Normal 150-450 [facility] Comment on above: Performed By: #### D ATA1C #### [facility] [address] [place] [address] Dr. Jodi Oglesby RBC 3.68 106/ul Critically low 4.70-6.10 [facility] Comment on above: Performed By: #### D ATA1C #### [facility] [address] [place] [address] Dr. Jodi Oglesby WBC 10.3 103/ul Normal 4.0-11.0 [facility] Comment on above: Performed By: #### D ATA1C #### [facility] [address] [place] [address] Dr. Jodi Oglesby PROF CHEM 8 (BAS METB)on Anion gap [Moles/Vol] 9.7 mmol/L Normal [facility] Comment on above: Performed By: #### C BC #### [facility] [address] [place] [address] Dr. Jodi Oglesby Calcium [Mass/Vol] 8.9 mg/dL Normal 8.5-10.1 [facility] Comment on above: Performed By: #### C BC #### [facility] [address] [place] [address] Dr. Jodi Oglesby Chloride [Moles/Vol] 102 mmol/L Normal 98-107 [facility] Comment on above: Performed By: #### C BC #### [facility] [address] [place] [address] Dr. Jodi Oglesby CO2 [Moles/Vol] 31.0 mmol/L Normal 21.0-32.0 [facility] Comment on above: Performed By: #### C BC #### [facility] [address] [place] [address] Dr. Jodi Oglesby Creatinine [Mass/Vol] 0.85 mg/dL Normal 0.70-1.30 [facility] Comment on above: Performed By: #### C BC #### [facility] [address] [place] [address] Dr. Jodi Oglesby EGFR-AF BURKINAN >60 Normal >=60 [facility] Comment on above: Performed By: #### C BC #### [facility] [address] [place] [address] Dr. Jodi Oglesby EGFR-NON AF BURKINAN >60 Normal >=60 [facility] Comment on above: Performed By: #### C BC #### [facility] [address] [place] [address] Dr. Jodi Oglesby Glucose [Mass/Vol] 106 mg/dL Normal 74-106 [facility] Comment on above: Performed By: #### C BC #### [facility] [address] [place] [address] Dr. Jodi Oglesby Potassium [Moles/Vol] 4.7 mmol/L Normal 3.5-5.1 [facility] Comment on above: Performed By: #### C BC #### [facility] [address] [place] [address] Dr. Jodi Oglesby Sodium [Moles/Vol] 138 mmol/L Normal 136-145 [facility] Comment on above: Performed By: #### C BC #### [facility] [address] [place], [place] [address] Dr. Jodi Oglesby Urea nitrogen [Mass/Vol] 14.0 mg/dL Normal 7.0-18.0 [facility] Comment on above: Performed By: #### C BC #### [facility] [address] [place], [place] [address] Dr. Jodi Oglesby Urea nitrogen/Creatinine [Mass ratio] 16.5 mg/mg Normal [facility] Comment on above: Performed By: #### C BC #### [facility] [address] [place], [place] [address] Dr. Jodi Oglesby XR CHEST 2 Von [...] ROCIO RICARDO Date: 2021-12-08 16:20 Normal [facility] Covid-19 PCR (CVDTB)on 11-07 SARS-CoV-2 (COVID-19) RNA JESSIE+probe Ql (Unsp spec) Not detected Normal NOT DETECTED [facility] Comment on above: Result Comment: This test is not yet approved or cleared by the [place] FDA. When there are no FDA-approved or cleared tests available, and other criteria are met, FDA can make tests available under an emergency access mechanism called an Emergency Use Authorization (EUA). The EUA for this test is supported by the [place] of Health and Human Service's (HHS's) declaration [...] SARS-CoV-2. Performed By: #### C VDTB #### [facility] [address] [place] [address] Dr. Jodi Oglesby CBC AUTO DIFFon 11-11-2021 BASO # 0.1 103/ul Normal 0.0-0.1 [facility] Comment on above: Performed By: #### C BC #### [facility] [address] [place] [address] Dr. Jodi Oglesby Basophils/100 WBC (Bld) 0.5 % Normal 0.2-2.0 [facility] Comment on above: Performed By: #### C BC #### [facility] [address] [place] [address] Dr. Jodi Oglesby EO # 0.2 103/ul Normal 0.0-0.7 [facility] Comment on above: Performed By: #### C BC #### [facility] [address] [place] [address] Dr. Jodi Oglesby Eosinophils/100 WBC (Bld) 1.9 % Normal 0.9-7.0 [facility] Comment on above: Performed By: #### C BC #### [facility] [address] [place] [address] Dr. Jodi Oglesby Erythrocyte distribution width (RBC) [Ratio] 13.6 % Normal 11.0-15.0 [facility] Comment on above: Performed By: #### C BC #### [facility] [address] [place] [address] Dr. Jodi Oglesby Hematocrit (Bld) [Volume fraction] 28.6 % Critically low 42.0-54.0 [facility] Comment on above: Performed By: #### C BC #### [facility] [address] [place] [address] Dr. Jodi Oglesby Hemoglobin (Bld) [Mass/Vol] 9.4 g/dL Critically low 14.0-18.0 [facility] Comment on above: Performed By: #### C BC #### [facility] [address] [place] [address] Dr. Jodi Oglesby IG # 0.08 10e3/ul Critically high 0.00-0.03 [facility] Comment on above: Performed By: #### C BC #### [facility] [address] [place] [address] Dr. Jodi Oglesby IG % 0.8 % Critically high 0.0-0.5 [facility] Comment on above: Performed By: #### C BC #### [facility] [address] [place] [address] Dr. Jodi Oglesby LYMPH # 1.3 103/ul Normal 1.2-3.8 [facility] Comment on above: Performed By: #### C BC #### [facility] [address] [place] [address] Dr. Jodi Oglesby Lymphocytes/100 WBC (Bld) 13.0 % Critically low 20.5-60.0 [facility] Comment on above: Performed By: #### C BC #### [facility] [address] [place] [address] Dr. Jodi Oglesby MANUAL DIFF REQ NO Normal [facility] Comment on above: Performed By: #### C BC #### [facility] [address] [place] [address] Dr. Jodi Oglesby MCH (RBC) [Entitic mass] 31.5 pg Normal 25.9-34.0 [facility] Comment on above: Performed By: #### C BC #### [facility] [address] [place] [address] Dr. Jodi Oglesby MCHC (RBC) [Mass/Vol] 32.9 g/dL Normal 29.9-35.2 [facility] Comment on above: Performed By: #### C BC #### [facility] [address] [place] [address] Dr. Jodi Oglesby MCV (RBC) [Entitic vol] 96.0 fL Critically high 80.0-94.0 [facility] Comment on above: Performed By: #### C BC #### [facility] [address] [place] [address] Dr. Jodi Oglesby MONO # 1.1 103/ul Critically high 0.3-0.8 [facility] Comment on above: Performed By: #### C BC #### [facility] [address] [place] [address] Dr. Jodi Oglesby Monocytes/100 WBC (Bld) 10.7 % Normal 1.7-12.0 [facility] Comment on above: Performed By: #### C BC #### [facility] [address] [place] [address] Dr. Jodi Oglesby NEUT # 7.4 103/ul Critically high 1.4-6.5 [facility] Comment on above: Performed By: #### C BC #### [facility] [address] [place] [address] Dr. Jodi Oglesby Neutrophils/100 WBC (Bld) 73.1 % Normal 43.0-75.0 [facility] Comment on above: Performed By: #### C BC #### [facility] [address] [place] [address] Dr. Jodi Oglesby Platelet mean volume (Bld) [Entitic vol] 9.3 fL Critically low 9.5-13.5 [facility] Comment on above: Performed By: #### C BC #### [facility] [address] [place] [address] Dr. Jodi Oglesby PLT 288 103/ul Normal 150-450 [facility] Comment on above: Performed By: #### C BC #### [facility] [address] [place] [address] Dr. Jodi Oglesby RBC 2.98 106/ul Critically low 4.70-6.10 [facility] Comment on above: Performed By: #### C BC #### [facility] [address] [place] [address] Dr. Jodi Oglesby WBC 10.1 103/ul Normal 4.0-11.0 [facility] Comment on above: Performed By: #### C BC #### [facility] [address] [place] [address] ABD/PELVIS WO CONon [...] TAYO CASTILLO Date: 2021-11-11 03:10 Normal [facility] Covid-19 PCR (CVDTB)on SARS-CoV-2 (COVID-19) RNA JESSIE+probe Ql (Unsp spec) Not detected Normal NOT DETECTED [facility] Comment on above: Result Comment: When [...] for this test is supported by the [place] Chief of Health and Human Service's declaration that [...] used). Performed By: #### C BC #### [facility] [address] [place], [place] [address] Dr. Jodi LOOMIS BLD IMMUNO SCREENon OCCULT BLOOD Negative Normal NEGATIVE [facility] Comment on above: Performed By: #### D ATA1C #### [facility] [address] [place] [address] [address] Jodi Oglesby PROF 14(COMP METB)on 022 Albumin [Mass/Vol] 3.0 g/dL Critically low 3.4-5.0 [facility] Comment on above: Performed By: #### C MP #### [facility] [address] [place] [address] Dr. Jodi Oglesby Albumin/Globulin [Mass ratio] 0.8 {ratio} Normal [facility] Comment on above: Performed By: #### C MP #### [facility] [address] [place] [address] Dr. Jodi Oglesby ALP [Catalytic activity/Vol] 126 U/L Critically high 46-116 [facility] Comment on above: Performed By: #### C MP #### [facility] [address] [place] [address] Dr. Jodi Oglesby ALT [Catalytic activity/Vol] 22 U/L Normal 16-63 [facility] Comment on above: Performed By: #### C MP #### [facility] [address] [place] [address] Dr. Jodi Oglesby Anion gap [Moles/Vol] 16.7 mmol/L Normal [facility] Comment on above: Performed By: #### C MP #### [facility] [address] [place] [address] Dr. Jodi Oglesby AST [Catalytic activity/Vol] 23 U/L Normal 15-37 [facility] Comment on above: Performed By: #### C MP #### [facility] [address] [place] [address] Dr. Jodi Oglesby Bilirubin [Mass/Vol] 0.6 mg/dL Normal 0.2-1.0 [facility] Comment on above: Performed By: #### C MP #### [facility] [address] [place] [address] Dr. Jodi Oglesby Calcium [Mass/Vol] 8.5 mg/dL Normal 8.5-10.1 [facility] Comment on above: Performed By: #### C MP #### [facility] [address] [place] [address] [address] Jodi Oglesby Chloride [Moles/Vol] 99 mmol/L Normal 98-107 [facility] Comment on above: Performed By: #### C MP #### [facility] [address] [place] [address] [address] Jodi Oglesby CO2 [Moles/Vol] 27.4 mmol/L Normal 21.0-32.0 [facility] Comment on above: Performed By: #### C MP #### [facility] [address] [place] [address] Dr. Jodi Oglesby Creatinine [Mass/Vol] 0.80 mg/dL Normal 0.70-1.30 [facility] Comment on above: Performed By: #### C MP #### [facility] [address] [place] [address] Dr. Jodi Oglesby EGFR-AF BURKINAN >60 Normal >=60 [facility] Comment on above: Performed By: #### C MP #### [facility] [address] [place] [address] Dr. Jodi Oglesby EGFR-NON AF BURKINAN >60 Normal >=60 [facility] Comment on above: Performed By: #### C MP #### [facility] [address] [place] [address] Dr. Jodi Oglesby Globulin (S) [Mass/Vol] 3.9 g/dL Normal [facility] Comment on above: Performed By: #### C MP #### [facility] [address] [place] [address] Dr. Jodi Oglesby Glucose [Mass/Vol] 116 mg/dL Critically high 74-106 T [facility] Comment on above: Performed By: #### C MP #### [facility] [address] [place] [address] [address] Jodi Oglesby Potassium [Moles/Vol] 4.1 mmol/L Normal 3.5-5.1 [facility] Comment on above: Performed By: #### C MP #### [facility] [address] [place] [address] Dr. Jodi Oglesby Protein [Mass/Vol] 6.9 g/dL Normal 6.4-8.2 [facility] Comment on above: Performed By: #### C MP #### [facility] [address] [place] [address] Dr. Jodi Oglesby Sodium [Moles/Vol] 129 mmol/L Critically low 136-145 Th [facility] Comment on above: Performed By: #### C MP #### [facility] [address] [place] [address] Dr. Jodi Oglesyb Urea nitrogen [Mass/Vol] 15.0 mg/dL Normal 7.0-18.0 [facility] Comment on above: Performed By: #### C MP #### [facility] [address] [place] [address] Dr. Jodi Oglesby Urea nitrogen/Creatinine [Mass ratio] 18.8 mg/mg Normal [facility] Comment on above: Performed By: #### C MP #### [facility] [address] [place] [address] Dr. Jodi Oglesby PROTIMEon 11-11-2021 INR Coag (PPP) [Relative time] 1.01 {INR} Normal [facility] Comment on above: Performed By: #### P TT, PT #### [facility] [address] [place] [address] Dr. Jodi Oglesby INR GUIDELINES SEE BELOW Normal [facility] Comment on above: Result Comment: ESHA RED INR: 2.0 - 3.0 CONDITIONS NOT LISTED BELOW 2.5 - 3.5 FOR PROSTHETIC HEART VALVE REPLACEMENT 2.5 - 3.5 RECURRENT THROMBOSIS Performed By: #### P TT, PT #### [facility] [address] [place] [address] Dr. Jodi Oglesby PT Coag (PPP) [Time] 10.9 s Normal 9.0-11.6 [facility] Comment on above: Performed By: #### P TT, PT #### [facility] [address] [place] [address] Dr. Jodi Oglesby PTTon 11-11-2021 aPTT Coag (Bld) [Time] 25.4 s Normal 22.3-36.2 [facility] Comment on above: Performed By: #### P TT, PT #### [facility] [address] [place] [address] Dr. Jodi Oglesby CBC AUTO DIFFon 10-26-2021 BASO # 0.0 103/ul Normal 0.0-0.1 [facility] Comment on above: Performed By: #### D ATA1C #### [facility] [address] [place] [address] Dr. Jodi Oglesby Basophils/100 WBC (Bld) 0.3 % Normal 0.2-2.0 [facility] Comment on above: Performed By: #### D ATA1C #### [facility] [address] [place] [address] Dr. Jodi Oglesby EO # 0.1 103/ul Normal 0.0-0.7 [facility] Comment on above: Performed By: #### D ATA1C #### [facility] [address] [place] [address] Dr. Jodi Oglesby Eosinophils/100 WBC (Bld) 0.5 % Critically low 0.9-7.0 [facility] Comment on above: Performed By: #### D ATA1C #### [facility] [address] [place] [address] Dr. Jodi Oglesby Erythrocyte distribution width (RBC) [Ratio] 12.4 % Normal 11.0-15.0 [facility] Comment on above: Performed By: #### D ATA1C #### [facility] [address] [place] [address] Dr. Jodi Oglesby Hematocrit (Bld) [Volume fraction] 39.5 % Critically low 42.0-54.0 [facility] Comment on above: Performed By: #### D ATA1C #### [facility] [address] [place] [address] Dr. Jodi Oglesby Hemoglobin (Bld) [Mass/Vol] 12.8 g/dL Critically low 14.0-18.0 [facility] Comment on above: Performed By: #### D ATA1C #### [facility] [address] [place] [address] Dr. Jodi Oglesby IG # 0.07 10e3/ul Critically high 0.00-0.03 [facility] Comment on above: Performed By: #### D ATA1C #### [facility] [address] [place] [address] Dr. Jodi Oglesby IG % 0.5 % Normal 0.0-0.5 [facility] Comment on above: Performed By: #### D ATA1C #### [facility] [address] [place] [address] Dr. Jodi Oglesby LYMPH # 0.9 103/ul Critically low 1.2-3.8 [facility] Comment on above: Performed By: #### D ATA1C #### [facility] [address] [place] [address] Dr. Jodi Oglesby Lymphocytes/100 WBC (Bld) 6.3 % Critically low 20.5-60.0 [facility] Comment on above: Performed By: #### D ATA1C #### [facility] [address] [place] [address] Dr. Jodi Oglesby MANUAL DIFF REQ NO Normal [facility] Comment on above: Performed By: #### D ATA1C #### [facility] [address] [place] [address] Dr. Jodi Oglesby MCH (RBC) [Entitic mass] 30.8 pg Normal 25.9-34.0 [facility] Comment on above: Performed By: #### D ATA1C #### [facility] [address] [place] [address] Dr. Jodi Oglesby MCHC (RBC) [Mass/Vol] 32.4 g/dL Normal 29.9-35.2 [facility] Comment on above: Performed By: #### D ATA1C #### [facility] [address] [place] [address] Dr. Jodi Oglesby MCV (RBC) [Entitic vol] 95.2 fL Critically high 80.0-94.0 [facility] Comment on above: Performed By: #### D ATA1C #### [facility] [address] [place] [address] Dr. Jodi Oglesby MONO # 0.9 103/ul Critically high 0.3-0.8 [facility] Comment on above: Performed By: #### D ATA1C #### [facility] [address] [place] [address] Dr. Jodi Oglesby Monocytes/100 WBC (Bld) 6.2 % Normal 1.7-12.0 [facility] Comment on above: Performed By: #### D ATA1C #### [facility] [address] [place] [address] Dr. Jodi Oglesby NEUT # 12.8 103/ul Critically high 1.4-6.5 [facility] Comment on above: Performed By: #### D ATA1C #### [facility] [address] [place] [address] Dr. Jodi Oglesby Neutrophils/100 WBC (Bld) 86.2 % Critically high 43.0-75.0 [facility] Comment on above: Performed By: #### Chavez ATA1C #### [facility] [address] [place] [address] Dr. Jodi Oglesby Platelet mean volume (Bld) [Entitic vol] 9.4 fL Critically low 9.5-13.5 [facility] Comment on above: Performed By: #### D ATA1C #### [facility] [address] [place] [address] Dr. Jodi Oglesby PLT 169 103/ul Normal 150-450 [facility] Comment on above: Performed By: #### Chavez ATA1C #### [facility] [address] [place] [address] Dr. Jodi Oglesby RBC 4.15 106/ul Critically low 4.70-6.10 [facility] Comment on above: Performed By: #### D ATA1C #### [facility] [address] [place] [address] Dr. Jodi Oglesby WBC 14.8 103/ul Critically high 4.0-11.0 [facility] Comment on above: Performed By: #### D ATA1C #### [facility] [address] [place] [address] CHEST WO CONon [...] NICOLE SIMMS Date: 2021-10-26 17:38 Normal [facility] Covid-19 PCR (CVDTB)on 10-07 SARS-CoV-2 (COVID-19) RNA JESSIE+probe Ql (Unsp spec) Not detected Normal NOT DETECTED [facility] Comment on above: Result Comment: When [...] for this test is supported by the Mate Chief of Health and Human Service's declaration that [...] used). Performed By: #### D ATA1C #### [facility] [address] [place] [address] Dr. Jodi Oglesby PROF CHEM 8 (BAS METB)on Anion gap [Moles/Vol] 11.7 mmol/L Normal Th [facility] Comment on above: Performed By: #### C BC #### [facility] [address] [place] [address] Dr. Jodi Oglesby Calcium [Mass/Vol] 9.2 mg/dL Normal 8.5-10.1 [facility] Comment on above: Performed By: #### C BC #### [facility] [address] [place] [address] Dr. Jodi Oglesby Chloride [Moles/Vol] 101 mmol/L Normal 98-107 [facility] Comment on above: Performed By: #### C BC #### [facility] [address] [place] [address] Dr. Jodi Oglesby CO2 [Moles/Vol] 27.6 mmol/L Normal 21.0-32.0 [facility] Comment on above: Performed By: #### C BC #### [facility] [address] [place] [address] Dr. Jodi Oglesby Creatinine [Mass/Vol] 0.98 mg/dL Normal 0.70-1.30 [facility] Comment on above: Performed By: #### C BC #### [facility] [address] [place] [address] Dr. Jodi Oglesby EGFR-AF BURKINAN >60 Normal >=60 [facility] Comment on above: Performed By: #### C BC #### [facility] [address] [place] [address] Dr. Jodi Oglesby EGFR-NON AF BURKINAN >60 Normal >=60 [facility] Comment on above: Performed By: #### C BC #### [facility] [address] [place] [address] [address] Jodi Oglesby Glucose [Mass/Vol] 119 mg/dL Critically high 74-106 T [facility] Comment on above: Performed By: #### C BC #### [facility] [address] [place], [place] [address] Dr. Jodi Oglesby Potassium [Moles/Vol] 4.3 mmol/L Normal 3.5-5.1 [facility] Comment on above: Performed By: #### C BC #### [facility] [address] [place] [address] [address] Jodi Oglesby Sodium [Moles/Vol] 136 mmol/L Normal 136-145 [facility] Comment on above: Performed By: #### C BC #### [facility] [address] [place] [address] [address] Jodi Oglesby Urea nitrogen [Mass/Vol] 15.0 mg/dL Normal 7.0-18.0 [facility] Comment on above: Performed By: #### C BC #### [facility] [address] [place] [address] [address] Jodi Oglesby Urea nitrogen/Creatinine [Mass ratio] 15.3 mg/mg Normal [facility] Comment on above: Performed By: #### C BC #### [facility] [address] [place] [address] [address] Jodi Oglesby XR CLAVICLE RTon 10-26-2021 [...] by: JANE Saravia: 2021-10-26 15:37 Normal [facility] XR ELBOW RT MIN 3 VIEWSon [...] DEL CHAKRABORTY Date: 2021-10-26 17:23 Normal [facility] XR HIP RT 2 3V W [...] CHARLES ALEJANDRA Date: 2021-10-26 15:40 Normal [facility] CARDIAC STRESS/REST INJE CTIONon 10-21-2021 [facility] CARDIAC STRESS/REST INJECTION Patient Name: CHICO BAKER STUDY: MYOCARDIAL PERFUSION STRESS TEST WITH LEXISCAN Performing facility: [facility], [address] [place] [address], [address], [address] Provider: Adilene Harrington MD, [facility] PCP: Dr. Jori Dunham Supervising provider: Ad[facility]ene Harrington MD, [facility] INDICATION: AAA Pre-operative risk assessment for AAA scheduled at [facility] on D. HISTORY: Gender: M; Age: 81 y/o ; Height: 0 cm; Weight: 0 kg. HTN; Carotid disease PAD AAA Denies smoking. COMPARISON: Previous nuclear testing completed at [place]. Previous echo testing completed on 2020 at [facility]. ACCESSION NUMBER(S): [id number]; [id number]; [id number] ORDERING CLINICIAN: JUDAH HARRINGTON TECHNIQUE: ONE DAY [...] Electronically signed by: ALL HUDSON MD Normal [facility] No Panel Informationon 10-21 Normal -[facility] [address] Work Phone: COVID-19 Positive/NegativeOr dered By: Raul Quan on 10-13-2021 SARS-CoV-2 (COVID-19) N gene JESSIE+probe Ql (Resp) Negative Negative [facility] Comment on above: Testing for SARS-CoV -2 by RT-PCR This test was developed and its performance characteristics determined by [employer] ([employer]) and validated at the [facility]. This test has not been [...] 10-06-2021 Basophils (Bld) [#/Vol] 0.0 10*3/uL 0.0-0.2 [facility] Basophils/100 WBC Auto (Bld) Ordered By: Raul Quan on 10-06-2021 Basophils/100 WBC (Bld) 0.7 % . [facility] Blood hemoglobin measurement (mass/volume)Ordered By: Raul Quan on 10-06-2021 Hemoglobin (Bld) [Mass/Vol] 13.1 g/dL 13.0-17.0 [facility] Blood leukocytes automated c ount (number/volume)Ordered By: Raul Quan on 10-06-2021 WBC (Bld) [#/Vol] 5.2 10*3/uL 4.5-11.0 [facility] Creatinine and Glomerular fi ltration rate.predicted panel (S/P/Bld)Ordered By: Raul Quan on 10-06-2021 Creatinine [Mass/Vol] 0.98 mg/dL 0.64-1.27 [facility] Eosinophils Auto (Bld) [#/Vo l]Ordered By: Raul Quan on 10-06-2021 Eosinophils (Bld) [#/Vol] 0.1 10*3/uL 0.0-0.45 [facility] Eosinophils/100 WBC Auto (Bl d)Ordered By: Raul Quan on 10-06-2021 Eosinophils/100 WBC (Bld) 1.3 % . [facility] Erythrocyte distribution wid th Auto (RBC) [Ratio]Ordered By: Raul Quan on 10-06-2021 Erythrocyte distribution width (RBC) [Ratio] 13.3 % 12.0-14.8 [facility] Estimated glomerular filtrat ion rate (GFR) non- AmericanOrdered By: Raul Quan on 10-06-2021 GFR/1.73 sq M.predicted among non-blacks MDRD (S/P/Bld) [Vol rate/Area] > 60 mL/Min [facility] Hematocrit Auto (Bld) [Volum e fraction]Ordered By: Raul Quan on 10-06-2021 Hematocrit (Bld) [Volume fraction] 40.4 % 38.8-50.0 [facility] Laboratory - Hematology and Cell countsOrdered By: Raul Quan on 10-06-2021 Nucleated RBC/100 WBC (Bld) [Ratio] 0.0 % 0-0.5 [facility] Lymphocytes Auto (Bld) [#/Vo l]Ordered By: Raul Quan on 10-06-2021 Lymphocytes (Bld) [#/Vol] 1.0 10*3/uL 1.00-4.8 [facility] Lymphocytes/100 WBC Auto (Bl d)Ordered By: Raul Quan on 10-06-2021 Lymphocytes/100 WBC (Bld) 18.4 % . [facility] MCH Auto (RBC) [Entitic mass ]Ordered By: Raul Quan on 10-06-2021 MCH (RBC) [Entitic mass] 30.9 pg 27.5-35.2 [facility] MCHC Auto (RBC) [Mass/Vol]Or dered By: Raul Quan on 10-06-2021 MCHC (RBC) [Mass/Vol] 32.5 g/dL 32.5-35.6 [facility] MCV Auto (RBC) [Entitic vol] Ordered By: Raul Quan on 10-06-2021 MCV (RBC) [Entitic vol] 95.2 fL 83.5-101 [facility] Monocytes Auto (Bld) [#/Vol] Ordered By: Raul Quan on 10-06-2021 Monocytes (Bld) [#/Vol] 0.6 10*3/uL 0.0-0.8 [facility] Monocytes/100 WBC Auto (Bld) Ordered By: Raul Quan on 10-06-2021 Monocytes/100 WBC (Bld) 12.0 % . [facility] Neutrophils Auto (Bld) [#/Vo l]Ordered By: Raul Quan on 10-06-2021 Neutrophils (Bld) [#/Vol] 3.5 10*3/uL 1.8-7.7 [facility] Neutrophils/100 WBC Auto (Bl d)Ordered By: Raul Quan on 10-06-2021 Neutrophils/100 WBC (Bld) 67.6 % . [facility] No Panel InformationOrdered By: Raul Quan on 10-06-2021 Estimated GFR () > 60 mL/Min [facility] Comment on above: GFR estimated refere nce range: According to KDOQI guidelines, <60 ml/min/1.73m2 is sufficient to diagnose a patient with chronic kidney disease. Pharmacy Creatinine Clearance (Chem N/A [facility] Platelet mean volume Auto (B ld) [Entitic vol]Ordered By: Raul Quan on 10-06-2021 Platelet mean volume (Bld) [Entitic vol] 8.1 fL 6.6-10.1 [facility] Platelets Auto (Bld) [#/Vol] Ordered By: Raul Quan on 10-06-2021 Platelets (Bld) [#/Vol] 185 10*3/uL 150-450 [facility] RBC Auto (Bld) [#/Vol]Ordere d By: Raul Quan on 10-06-2021 RBC (Bld) [#/Vol] 4.25 10*6/uL 3.90-5.60 [facility] Serum or plasma calcium richy urement (mass/volume)Ordered By: Raul Quan on 10-06-2021 Calcium [Mass/Vol] 9.0 mg/dL 8.2-10.2 [facility] Serum or plasma chloride young surement (moles/volume)Ordered By: Raul Quan on 10-06-2021 Chloride [Moles/Vol] 101 mmol/L 95-114 [facility] Serum or plasma glucose richy urement (mass/volume)Ordered By: Raul Quan on 10-06-2021 Glucose [Mass/Vol] 187 mg/dL 70-100 [facility] Comment on above: ADA recommended refe rence range Random Glucose Reference Range is dependent on time and content of last meal. Glucose of more than 200 mg/dL in a nonstressed, ambulatory subject supports the diagnosis of Diabetes Mellitus. Serum or plasma potassium me asurement (moles/volume)Ordered By: Raul Quan on 10-06-2021 Potassium [Moles/Vol] 4.0 mmol/L 3.5-5.1 [facility] Serum or plasma sodium measu rement (moles/volume)Ordered By: Raul Quan on 10-06-2021 Sodium [Moles/Vol] 135 mmol/L 136-146 [facility] Serum or plasma total carbon dioxide measurement (moles/volume)Ordered By: Raul Quan on 10-06-2021 CO2 [Moles/Vol] 25.1 mmol/L 22.0-30.0 [facility] Serum or plasma urea nitroge n measurement (mass/volume)Ordered By: Raul Quan on 10-06-2021 Urea nitrogen [Mass/Vol] 13 mg/dL 9-23 [facility] CBC AUTO DIFFon 09-22-2021 BASO # 0.0 103/ul Normal 0.0-0.1 [facility] Comment on above: Performed By: #### C BC #### [facility] [address] [address] [address] Jodi Oglesby Basophils/100 WBC (Bld) 0.3 % Normal 0.2-2.0 [facility] Comment on above: Performed By: #### C BC #### [facility] [address] [place] [address] Dr. Jodi Oglesby EO # 0.1 103/ul Normal 0.0-0.7 [facility] Comment on above: Performed By: #### C BC #### [facility] [address] [place] [address] Dr. Jodi Oglesby Eosinophils/100 WBC (Bld) 0.8 % Critically low 0.9-7.0 [facility] Comment on above: Performed By: #### C BC #### [facility] [address] [place] [address] Dr. Jodi Oglesby Erythrocyte distribution width (RBC) [Ratio] 12.5 % Normal 11.0-15.0 [facility] Comment on above: Performed By: #### C BC #### [facility] [address] [place] [address] Dr. Jodi Oglesby Hematocrit (Bld) [Volume fraction] 43.6 % Normal 42.0-54.0 [facility] Comment on above: Performed By: #### C BC #### [facility] [address] [place] [address] Dr. Jodi Oglesby Hemoglobin (Bld) [Mass/Vol] 14.1 g/dL Normal 14.0-18.0 [facility] Comment on above: Performed By: #### C BC #### [facility] [address] [place] [address] Dr. Jodi Oglesby IG # 0.03 10e3/ul Normal 0.00-0.03 [facility] Comment on above: Performed By: #### C BC #### [facility] [address] [place] [address] Dr. Jodi Oglesby IG % 0.3 % Normal 0.0-0.5 [facility] Comment on above: Performed By: #### C BC #### [facility] [address] [place] [address] Dr. Jodi Oglesby LYMPH # 1.5 103/ul Normal 1.2-3.8 [facility] Comment on above: Performed By: #### C BC #### [facility] [address] [place] [address] Dr. Jodi Oglesby Lymphocytes/100 WBC (Bld) 17.2 % Critically low 20.5-60.0 [facility] Comment on above: Performed By: #### C BC #### [facility] [address] [place] [address] Dr. Jodi Oglesby MANUAL DIFF REQ NO Normal [facility] Comment on above: Performed By: #### C BC #### [facility] [address] [place] [address] Dr. Jodi Oglesby MCH (RBC) [Entitic mass] 31.1 pg Normal 25.9-34.0 [facility] Comment on above: Performed By: #### C BC #### [facility] [address] [place] [address] Dr. Jodi Oglesby MCHC (RBC) [Mass/Vol] 32.3 g/dL Normal 29.9-35.2 [facility] Comment on above: Performed By: #### C BC #### [facility] [address] [place] [address] Dr. Jodi Oglesby MCV (RBC) [Entitic vol] 96.0 fL Critically high 80.0-94.0 [facility] Comment on above: Performed By: #### C BC #### [facility] [address] [place] [address] Dr. Jodi Oglesby MONO # 1.0 103/ul Critically high 0.3-0.8 [facility] Comment on above: Performed By: #### C BC #### [facility] [address] [place] [address] Dr. Jodi Oglesby Monocytes/100 WBC (Bld) 10.8 % Normal 1.7-12.0 [facility] Comment on above: Performed By: #### C BC #### [facility] [address] [place] [address] Dr. Jodi Oglesby NEUT # 6.2 103/ul Normal 1.4-6.5 [facility] Comment on above: Performed By: #### C BC #### [facility] [address] [place] [address] Dr. Jodi Oglesby Neutrophils/100 WBC (Bld) 70.6 % Normal 43.0-75.0 [facility] Comment on above: Performed By: #### C BC #### [facility] [address] [place] [address] Dr. Jodi Oglesby Platelet mean volume (Bld) [Entitic vol] 9.6 fL Normal 9.5-13.5 [facility] Comment on above: Performed By: #### C BC #### [facility] [address] [place] [address] Dr. Jodi Oglesby PLT 206 103/ul Normal 150-450 [facility] Comment on above: Performed By: #### C BC #### [facility] [address] [place] [address] Dr. Jodi Oglesby RBC 4.54 106/ul Critically low 4.70-6.10 [facility] Comment on above: Performed By: #### C BC #### [facility] [address] [place] [address] Dr. Jodi Oglesby WBC 8.8 103/ul Normal 4.0-11.0 [facility] Comment on above: Performed By: #### C BC #### [facility] [address] [place] [address] Dr. Jodi Oglesby PROF CHEM 8 (BAS METB)on Anion gap [Moles/Vol] 9.5 mmol/L Normal [facility] Comment on above: Performed By: #### B MP #### [facility] [address] [place] [address] Dr. Jodi Oglesby Calcium [Mass/Vol] 9.4 mg/dL Normal 8.5-10.1 [facility] Comment on above: Performed By: #### B MP #### [facility] [address] [place] [address] Dr. Jodi Oglesby Chloride [Moles/Vol] 100 mmol/L Normal 98-107 [facility] Comment on above: Performed By: #### B MP #### [facility] [address] [address] [address] Jodi Oglesby CO2 [Moles/Vol] 33.2 mmol/L Critically high 21.0-32.0 [facility] Comment on above: Performed By: #### B MP #### [facility] [address] [address] [address] Jodi Oglesby Creatinine [Mass/Vol] 0.99 mg/dL Normal 0.70-1.30 [facility] Comment on above: Performed By: #### B MP #### [facility] [address] [place] [address] Dr. Jodi Oglesby EGFR-AF BURKINAN >60 Normal >=60 [facility] Comment on above: Performed By: #### B MP #### [facility] [address] [place] [address] Dr. Jodi Oglesby EGFR-NON AF BURKINAN >60 Normal >=60 [facility] Comment on above: Performed By: #### B MP #### [facility] [address] [place] [address] Dr. Jodi Oglesby Glucose [Mass/Vol] 109 mg/dL Critically high 74-106 [facility] Comment on above: Performed By: #### B MP #### [facility] [address] [place] [address] Dr. Jodi Oglesby Potassium [Moles/Vol] 4.7 mmol/L Normal 3.5-5.1 [facility] Comment on above: Performed By: #### B MP #### [facility] [address] [place] [address] Dr. Jodi Oglesby Sodium [Moles/Vol] 138 mmol/L Normal 136-145 [facility] Comment on above: Performed By: #### B MP #### [facility] [address] [place] [address] Dr. Jodi Oglesby Urea nitrogen [Mass/Vol] 17.0 mg/dL Normal 7.0-18.0 [facility] Comment on above: Performed By: #### B MP #### [facility] [address] [place] [address] Dr. Jodi Oglesby Urea nitrogen/Creatinine [Mass ratio] 17.2 mg/mg Normal [facility] Comment on above: Performed By: #### B MP #### [facility] [address] [address] [address] Jodi Oglesby Creatinine (Bld) [Mass/Vol]O rdered By: Tamar Perea on 09-18-2021 Creatinine [Mass/Vol] 0.8 mg/dL 0.6-1.3 [facility] Comment on above: ER/ESD physician is notified/shown all ISTAT results. Critical values may be confirmed by laboratory testing if deemed necessary by ER attending doctor. No Panel InformationOrdered By: Tamar Perea on 09-18-2021 POC Estimated GFR > 60 [facility] Comment on above: GFR estimated refere nce range: According to KDOQI guidelines, <60 ml/min/1.73m2 is sufficient to diagnose a patient with chronic kidney disease. POC Estimated GFR Non- Amer > 60 [facility] CBC AUTO DIFFon 08-12-2021 BASO # 0.0 103/ul Normal 0.0-0.1 [facility] Comment on above: Performed By: #### C BC #### [facility] [address] [place] [address] Dr. Jodi Oglesby Basophils/100 WBC (Bld) 0.3 % Normal 0.2-2.0 [facility] Comment on above: Performed By: #### C BC #### [facility] [address] [address] [address] Jodi Oglesby EO # 0.1 103/ul Normal 0.0-0.7 [facility] Comment on above: Performed By: #### C BC #### [facility] [address] [id number] Jodi Oglesby Eosinophils/100 WBC (Bld) 1.8 % Normal 0.9-7.0 [facility] Comment on above: Performed By: #### C BC #### [facility] [address] [address] [address] Jodi Oglesby Erythrocyte distribution width (RBC) [Ratio] 12.6 % Normal 11.0-15.0 [facility] Comment on above: Performed By: #### C BC #### [facility] [address] [place] [address] Dr. Jodi Oglesby Hematocrit (Bld) [Volume fraction] 40.9 % Critically low 42.0-54.0 [facility] Comment on above: Performed By: #### C BC #### [facility] [address] [place] [address] Dr. Jodi Oglesby Hemoglobin (Bld) [Mass/Vol] 13.4 g/dL Critically low 14.0-18.0 [facility] Comment on above: Performed By: #### C BC #### [facility] [address] [place] [address] Dr. Jodi Oglesby IG # 0.03 10e3/ul Normal 0.00-0.03 [facility] Comment on above: Performed By: #### C BC #### [facility] [address] [place] [address] Dr. Jodi Oglesby IG % 0.4 % Normal 0.0-0.5 [facility] Comment on above: Performed By: #### C BC #### [facility] [address] [place] [address] Dr. Jodi Oglesby LYMPH # 1.4 103/ul Normal 1.2-3.8 [facility] Comment on above: Performed By: #### C BC #### [facility] [address] [place] [address] Dr. Jodi Oglesby Lymphocytes/100 WBC (Bld) 18.6 % Critically low 20.5-60.0 [facility] Comment on above: Performed By: #### C BC #### [facility] [address] [place] [address] Dr. Jodi Oglesby MCH (RBC) [Entitic mass] 31.5 pg Normal 25.9-34.0 [facility] Comment on above: Performed By: #### C BC #### [facility] [address] [place] [address] Dr. Jodi Oglesby MCHC (RBC) [Mass/Vol] 32.8 g/dL Normal 29.9-35.2 [facility] Comment on above: Performed By: #### C BC #### [facility] [address] [place] [address] Dr. Jodi Oglesby MCV (RBC) [Entitic vol] 96.0 fL Critically high 80.0-94.0 [facility] Comment on above: Performed By: #### C BC #### [facility] [address] [place] [address] Dr. Jodi Oglesby MONO # 0.7 103/ul Normal 0.3-0.8 [facility] Comment on above: Performed By: #### C BC #### [facility] [address] [place] [address] Dr. Jodi Oglesby Monocytes/100 WBC (Bld) 9.7 % Normal 1.7-12.0 [facility] Comment on above: Performed By: #### C BC #### [facility] [address] [place] [address] Dr. Jodi Oglesby NEUT # 5.1 103/ul Normal 1.4-6.5 [facility] Comment on above: Performed By: #### C BC #### [facility] [address] [place] [address] Dr. Jodi Oglesby Neutrophils/100 WBC (Bld) 69.2 % Normal 43.0-75.0 [facility] Comment on above: Performed By: #### C BC #### [facility] [address] [place] [address] Dr. Jodi Oglesby Platelet mean volume (Bld) [Entitic vol] 9.8 fL Normal 9.5-13.5 [facility] Comment on above: Performed By: #### C BC #### [facility] [address] [place] [address] Dr. Jodi Oglesby PLT 195 103/ul Normal 150-450 [facility] Comment on above: Performed By: #### C BC #### [facility] [address] [place] [address] Dr. Jodi Oglesby RBC 4.26 106/ul Critically low 4.70-6.10 [facility] Comment on above: Performed By: #### C BC #### [facility] [address] [place] [address] Dr. Jodi Oglesby WBC 7.4 103/ul Normal 4.0-11.0 [facility] Comment on above: Performed By: #### C BC #### [facility] [address] [place] [address] Dr. Jodi Oglesby ASHLEY - TSHon 08-12-2021 TSH 1.879 uIU/mL Normal 0.358-3.74 0 [facility] Comment on above: Performed By: #### D LULU DATBMP #### [facility] [address] [place] [address] Dr. Jodi Oglesby TSH RANGE SEE BELOW Normal [facility] Comment on above: Result Comment: <0.3 4 UIU/ml HYPERTHYROID 0.34-5.60 UIU/ml EUTHYROID >5.60 UIU/ml HYPOTHYROID Performed By: #### D LULU DATBMP #### [facility] [address] [place] [address] Dr. Jodi Oglesby ASHLEY- BMP WITH LIPIDon 2021 Anion gap [Moles/Vol] 11.4 mmol/L Normal [facility] Comment on above: Performed By: #### D LULU, DATBMP #### [facility] [address] [place] [address] Dr. Jodi Oglesby Calcium [Mass/Vol] 8.7 mg/dL Normal 8.5-10.1 [facility] Comment on above: Performed By: #### D ATTKENDELL, DATBMP #### [facility] [address] [place] [address] Dr. Jodi Oglesby Chloride [Moles/Vol] 105 mmol/L Normal 98-107 [facility] Comment on above: Performed By: #### D ATTKENDELL, DATBMP #### [facility] [address] [place] [address] Dr. Jodi Oglesby Cholesterol [Mass/Vol] 113 mg/dL Normal <=200 [facility] Comment on above: Performed By: #### D ATTKENDELL, DATBMP #### [facility] [address] [address] [address] Jodi Oglesby Cholesterol in HDL [Mass/Vol] 47 mg/dL Normal 40-60 [facility] Comment on above: Performed By: #### D ATTSH, DATBMP #### [facility] [address] [address] [address] Jodi Oglesby Cholesterol in LDL [Mass/Vol] 58.0 mg/dL Normal [facility] Comment on above: Performed By: #### D ATTSH, DATBMP #### [facility] [address] [address] [address] Jodi Oglesby CO2 [Moles/Vol] 29.0 mmol/L Normal 21.0-32.0 [facility] Comment on above: Performed By: #### D ATTSH, DATBMP #### [facility] [address] [address] [address] Jodi Oglesby Creatinine [Mass/Vol] 0.99 mg/dL Normal 0.70-1.30 [facility] Comment on above: Performed By: #### D ATTSH, DATBMP #### [facility] [address] [address] [address] Jodi Oglesby EGFR-AF BURKINAN >60 Normal >=60 [facility] Comment on above: Performed By: #### D ATTSH, DATBMP #### [facility] [address] [address] [address] Jodi Oglesby EGFR-NON AF BURKINAN >60 Normal >=60 [facility] Comment on above: Performed By: #### D ATTSH, DATBMP #### [facility] [address] [address] [address] Jodi Oglesby Glucose [Mass/Vol] 116 mg/dL Critically high 74-106 T [facility] Comment on above: Performed By: #### D ATTSH, DATBMP #### [facility] [address] [address] [address] Jodi Oglesby HDL NORMAL > or = 60 mg/dl - LO W CARDIOVASCULAR RISK <40 mg/dl - HIGH CARDIOVASCULAR RISK Normal [facility] Comment on above: Performed By: #### D ATTSH, DATBMP #### [facility] [address] [address] [address] Jodi Oglesby LDL CALC NORMAL SEE BELOW Normal [facility] Comment on above: Result Comment: <100 mg/dl OPTIMAL 100 - 129 mg/dl NEAR OR ABOVE OPTIMAL 130 - 159 mg/dl BORDERLINE HIGH 160 - 189 mg/dl HIGH >190 mg/dl VERY HIGH Performed By: #### D ATTSH, DATBMP #### [facility] [address] [address] [address] Jodi Oglesby Potassium [Moles/Vol] 4.4 mmol/L Normal 3.5-5.1 [facility] Comment on above: Performed By: #### D ATTKENDELL, DATBMP #### [facility] [address] [place] [address] Dr. Jodi Olgesby Sodium [Moles/Vol] 141 mmol/L Normal 136-145 [facility] Comment on above: Performed By: #### D ATTSH, DATBMP #### [facility] [address] [address] [address] Jodi Oglesby Triglyceride [Mass/Vol] 40 mg/dL Normal <=150 [facility] Comment on above: Performed By: #### D ATTKENDELL, DATBMP #### [facility] [address] [place] [address] Dr. Jodi Oglesby Urea nitrogen [Mass/Vol] 16.0 mg/dL Normal 7.0-18.0 [facility] Comment on above: Performed By: #### D ATTSH, DATBMP #### [facility] [address] [place] [address] Dr. Jodi Oglesby Urea nitrogen/Creatinine [Mass ratio] 16.2 mg/mg Normal [facility] Comment on above: Performed By: #### D ATTSH, DATBMP #### [facility] [address] [place] [address] Dr. Jodi Oglesby VLDL CALC 8.0 mg/dL Normal [facility] Comment on above: Performed By: #### D ATTSH, DATBMP #### [facility] [address] [address] [address] Jodi Oglesby GLYCOHEMOGLOBIN A1Con 2021 ADA RECOMMENDATION SEE BELOW Normal [facility] Comment on above: Result Comment: ADA RECOMMENDED LIMIT 4.0 - 6.0 ADA THERAPEUTIC TARGET < 7.0 ACTION SUGGESTED > 7.0 Performed By: #### D ATA1C #### [facility] [address] [address] [address] Jodi Ogelsby Glucose [Mass/Vol] 131 mg/dL Normal [facility] Comment on above: Performed By: #### D ATA1C #### [facility] [address] [address] [address] Jodi Oglesby HbA1c (Bld) [Mass fraction] 6.2 % Normal 4.5-6.2 [facility] Comment on above: Performed By: #### D ATA1C #### [facility] [address] [address] [address] Jodi Oglesby CNOVon 12-11-2020 [facility] Office Visit ([facility] ) -- CHICO BAKER ([id number]) 1940 M Date Time Provider Department 12/11/20 10:45 AM POWER CATHERINE During your visit today, we recorded the following information about you: Pulse Blood pressure Weight Height 60/minute 122/78 67.6 kg 1.702 m Power Catherine MD 12/11/2020 11:17 AM [facility] OUTPATIENT VISIT DATE December 11, 2020 OUTPATIENT VISIT TYPE EST PRIMARY CARE PHYSICIAN: Shailesh Dunham (Jere) [address] [place] [address] REFERRING PHYSICIAN Power Catherine [address] [place] [id number] CHIEF COMPLAINT: Patient presents with: Established Patient [...] Power Catherine MD Referring Provider: POWER CATHERINE [[id number]] Allergies As of Date: 12/11/2020 Noted Allergy Reaction SHALINI INHIBITORS 05/09/2015 16 - Unknown GADOLINIUM-CONTAINING CONTRAST ME*05/09/2015 16 - Unknown TETANUS VACCINES AND TOXOID 05/16/2015 16 - Unknown Date Reviewed: 12/11/2020 Reviewed by: Harika Menjivar - Fully Assessed Reason for Visit: Established Patient [175] Follow Up [171] 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 - nitroglycerin sublingual (NITROQUICK) 0.3 mg SL tablet (more content not included)... Normal [facility] Jessa 10-30-2020 [facility] Telephone ([facility]) -- SAMUELCHICO ([id number]) 1940 M Date Time Provider Department 10/30/20 [...] [I71.4] Order(s):US ABD [facility] [[id number]] Order #: [id number] FUTURE Prescriptions as of 11/04/2020 - aspirin, [...] Status:Closed by SHERI MOLINA on 11/04/[address] [facility] Vital Signs Date Time Vital Sign Value Performing Clinician Facility 09-03-2023 08:49-0400 Body height 170.18 cm DO Gravie Work Phone: [facility] 09-03-2023 08:49-0400 Body mass index (BMI) [Ratio] 21.9 kg/m2 DO Shailesh Ball Work Phone: [facility] 09-03-2023 08:49-0400 Body weight 63.5 kg DO Shailesh Ball Work Phone: [facility] 09-03-2023 08:49-0400 Diastolic blood pressure 58 mm[Hg] DO Shailesh Ball Work Phone: [facility] 09-03-2023 08:49-0400 Heart rate 63 /min DO Shailesh Ball Work Phone: [facility] 09-03-2023 08:49-0400 Respiratory rate 18 /min DO Shailesh Ball Work Phone: [facility] 09-03-2023 08:49-0400 SaO2% (BldA) [Mass fraction] 97 % DO Shailesh Ball Work Phone: [facility] 09-03-2023 08:49-0400 Systolic blood pressure 110 mm[Hg] DO Shailesh Ball Work Phone: [facility] 08-27-2023 08:33-0400 Body height 170.18 cm DO Shailesh Ball Work Phone: [facility] 08-27-2023 08:33-0400 Body mass index (BMI) [Ratio] 21.7 kg/m2 DO Shailesh Ball Work Phone: [facility] 08-27-2023 08:33-0400 Body weight 62.76 kg DO Shailesh Ball Work Phone: [facility] 08-27-2023 08:33-0400 Diastolic blood pressure 65 mm[Hg] DO Shailesh Ball Work Phone: [facility] 08-27-2023 08:33-0400 Heart rate 64 /min DO Shailesh Ball Work Phone: [facility] 08-27-2023 08:33-0400 Respiratory rate 12 /min DO Shailesh Ball Work Phone: [facility] 08-27-2023 08:33-0400 Systolic blood pressure 132 mm[Hg] DO Shailesh Ball Work Phone: [facility] 08-19-2023 11:18-0400 Body height 170.18 cm DO Shailesh Ball Work Phone: [facility] 08-19-2023 11:18-0400 Body mass index (BMI) [Ratio] 21.9 kg/m2 DO Shailesh Ball Work Phone: [facility] 08-19-2023 11:18-0400 Body weight 63.5 kg DO Shailesh Ball Work Phone: [facility] 08-19-2023 11:18-0400 Diastolic blood pressure 56 mm[Hg] DO Shailesh Ball Work Phone: [facility] 08-19-2023 11:18-0400 Heart rate 60 /min DO Shailesh Ball Work Phone: [facility] 08-19-2023 11:18-0400 Respiratory rate 18 /min DO Shailesh Ball Work Phone: [facility] 08-19-2023 11:18-0400 SaO2% (BldA) [Mass fraction] 98 % DO Shailesh Ball Work Phone: [facility] 08-19-2023 11:18-0400 Systolic blood pressure 102 mm[Hg] DO Shailesh Ball Work Phone: [facility] 07-05-2023 10:23-0400 Body height 170.18 cm DO Shailesh Ball Work Phone: [facility] 07-05-2023 10:23-0400 Body mass index (BMI) [Ratio] 21.4 kg/m2 DO Shailesh Ball Work Phone: [facility] 07-05-2023 10:23-0400 Body temperature 97 [degF] DO Shailesh Ball Work Phone: [facility] 07-05-2023 10:23-0400 Body weight 62.14 kg DO Shailesh Ball Work Phone: [facility] 07-05-2023 10:23-0400 Diastolic blood pressure 48 mm[Hg] DO Shailesh Ball Work Phone: [facility] 07-05-2023 10:230400 Heart rate 60 /min DO Shailesh Ball Work Phone: [facility] 07-05-2023 10:23-0400 SaO2% (BldA) [Mass fraction] 97 % DO Shailesh Ball Work Phone: [facility] 07-05-2023 10:23-0400 Systolic blood pressure 96 mm[Hg] DO Shailesh Ball Work Phone: [facility] 06-22-2023 10:010400 Body height 170.18 cm DO Shailesh Ball Work Phone: [facility] 06-22-2023 10:01-0400 Body mass index (BMI) [Ratio] 21.5 kg/m2 DO Shailesh Ball Work Phone: [facility] 06-22-2023 10:010400 Body weight 62.36 kg DO Shailesh Ball Work Phone: [facility] 06-22-2023 10:01-0400 Diastolic blood pressure 69 mm[Hg] DO Shailesh Ball Work Phone: [facility] 06-22-2023 10:01-0400 Heart rate 64 /min DO Shailesh Ball Work Phone: [facility] 06-22-2023 10:01-0400 Respiratory rate 12 /min DO Shailesh Ball Work Phone: [facility] 06-22-2023 10:01-0400 Systolic blood pressure 95 mm[Hg] DO Shailesh Ball Work Phone: [facility] 05-04-2023 11:14-0500 Blood Pressure Location Ivelisse Hassan [facility] 05-04-2023 11:14-0500 Diastolic blood pressure 46 mm[Hg] Ivelisse Lue [facility] 05-04-2023 11:14-0500 Heart rate 63 /min Ivelisse Lue [facility] 05-04-2023 11:14-0500 Systolic blood pressure 116 mm[Hg] Ivelisse Lue [facility] 04-14-2023 10:15-0500 Body height 170.18 cm Shailesh Ball Other [facility] [employer] Other 04-14-2023 10:15-0500 Body mass index (BMI) [Ratio] 21.64 kg/m2 Shailesh Ball Other [facility] [employer] Other 04-14-2023 10:15-0500 Body weight 62.69 kg Shailesh Ball Other [facility] [employer] Other 04-14-2023 10:15-0500 Diastolic blood pressure 58 mm[Hg] Shailesh Ball Other [facility] [employer] Other 04-14-2023 10:15-0500 Respiratory rate 12 /min Shailesh Ball Other [facility] [employer] Other 04-14-2023 10:15-0500 Systolic blood pressure 118 mm[Hg] Shailesh Ball Other [facility] [employer] Other 03-29-2023 10:00-0500 Body height 170.18 cm Shailesh Ball Other [facility] 03-29-2023 10:00-0500 Body mass index (BMI) [Ratio] 21.8 kg/m2 Shailesh Ball Other [facility] [employer] Other 03-29-2023 10:00-0500 Body weight 63.14 kg Shailesh Ball Other [facility] 03-29-2023 10:00-0500 Diastolic blood pressure 74 mm[Hg] Shailesh Ball Other [facility] 03-29-2023 10:00-0500 Respiratory rate 12 /min Shailesh Ball Other [facility] [employer] Other 03-29-2023 10:00-0500 Systolic blood pressure 132 mm[Hg] Shailesh Ball Other [facility] 01-13-2023 08:49-0500 Blood Pressure Location Ivelisse Lue [facility] 01-13-2023 08:49-0500 Diastolic blood pressure 74 mm[Hg] Ivelisse Lue [facility] 01-13-2023 08:49-0500 Heart rate 68 /min Ivelisse Lue [facility] 01-13-2023 08:49-0500 Respiratory rate 16 /min Ivelisse Lue [facility] 01-13-2023 08:49-0500 Systolic blood pressure 156 mm[Hg] Ivelisse Lue [facility] 11-10-2022 10:30-0400 Body height 170.18 cm Raul Quan Other [facility] [employer] Other 11-10-2022 10:30-0400 Body mass index (BMI) [Ratio] 20.99 kg/m2 Raul Quan Other [facility] [employer] Other 11-10-2022 10:30-0400 Body temperature 97.8 [degF] Raul Avelina Other [employer] Other 11-10-2022 10:30-0400 Body weight 60.78 kg Raul Avelina Other [facility] Other 11-10-2022 10:30-0400 Diastolic blood pressure 64 mm[Hg] Raul Quan Other [facility] Other 11-10-2022 10:30-0400 SaO2% (BldA) [Mass fraction] 98 % Raulchristiana Quan Other [facility] Other 11-10-2022 10:30-0400 Systolic blood pressure 110 mm[Hg] Raul Quan Other [facility] Other 10-07-2022 08:49-0400 Blood Pressure Location Ivelisse Lue [facility] 10-07-2022 08:49-0400 Diastolic blood pressure 74 mm[Hg] Ivelisse Lue [facility] 10-07-2022 08:49-0400 Heart rate 75 /min Ivelisse Lue [facility] 10-07-2022 08:49-0400 Systolic blood pressure 139 mm[Hg] Ivelisse Lue [facility] 08-04-2022 11:15-0400 Body height 170.18 cm Raul Quan Other [facility] Other 08-04-2022 11:15-0400 Body mass index (BMI) [Ratio] 21.77 kg/m2 Raul Quan Other [facility] Other 08-04-2022 11:15-0400 Body temperature 97.8 [degF] Raul Quan Other [facility] Other 08-04-2022 11:15-0400 Body weight 63.05 kg Raul Quan Other [facility] Other 08-04-2022 11:15-0400 Diastolic blood pressure 68 mm[Hg] Raul Quan Other [facility] Other 08-04-2022 11:15-0400 SaO2% (BldA) [Mass fraction] 97 % Raul Quan Other [facility] Other 08-04-2022 11:15-0400 Systolic blood pressure 108 mm[Hg] Raul Quan Other [facility] Other 07-09-2022 08:00-0400 Body temperature 98.6 [degF] DO Shailesh Ball Work Phone: [facility] 07-09-2022 08:00-0400 Diastolic blood pressure 72 mm[Hg] DO Shailesh Ball Work Phone: [facility] 07-09-2022 08:00-0400 Heart rate 69 /min DO Shailesh Ball Work Phone: [facility] 07-09-2022 08:00-0400 Respiratory rate 16 /min DO Shailesh Ball Work Phone: [facility] 07-09-2022 08:00-0400 SaO2% (BldA) [Mass fraction] 97 % DO Shailesh Ball Work Phone: [facility] 07-09-2022 08:00-0400 Systolic blood pressure 154 mm[Hg] DO Shailesh Ball Work Phone: [facility] 07-09-2022 06:00-0400 Body weight 65.8 kg DO Shailesh Ball Work Phone: [facility] 07-08-2022 10:52-0400 Inhaled oxygen flow rate 8 L/min DO Shailesh Ball Work Phone: [facility] 07-08-2022 08:34-0400 Body height 167.64 cm DO Shailesh Ball Work Phone: [facility] 07-08-2022 08:34-0400 Body mass index (BMI) [Ratio] 22.7 kg/m2 DO Shailesh Ball Work Phone: [facility] 06-24-2022 09:27-0400 Blood Pressure Location Ivelisse Lue [facility] 06-24-2022 09:27-0400 Diastolic blood pressure 75 mm[Hg] Ivelisse Lue [facility] 06-24-2022 09:27-0400 Heart rate 66 /min Ivelisse Lue [facility] 06-24-2022 09:27-0400 Respiratory rate 16 /min Ivelisse Lue [facility] 06-24-2022 09:27-0400 Systolic blood pressure 120 mm[Hg] Ivelisse Lue [facility] 05-21-2022 09:30-0400 Body height 170.18 cm Shailesh Ball Other [facility] Other 05-21-2022 09:30-0400 Body mass index (BMI) [Ratio] 21.8 kg/m2 Shailesh Ball Other [facility] Other 05-21-2022 09:30-0400 Body weight 63.14 kg Shailesh Ball Other [facility] Other 05-21-2022 09:30-0400 Diastolic blood pressure 73 mm[Hg] Shailesh Ball Other [facility] Other 05-21-2022 09:30-0400 Respiratory rate 12 /min Shailesh Ball Other [facility] Other 05-21-2022 09:30-0400 Systolic blood pressure 121 mm[Hg] Shailesh Ball Other [facility] Other 05-19-2022 11:00-0400 Body height 170.18 cm Tamar Perea Other [facility] Other 05-19-2022 11:00-0400 Body mass index (BMI) [Ratio] 22.02 kg/m2 Tamar Perea Other [facility] Other 05-19-2022 11:00-0400 Body temperature 97.5 [degF] Tamar Perea Other [facility] Other 05-19-2022 11:00-0400 Body weight 63.78 kg Tamar Brit Other [facility] Other 05-19-2022 11:00-0400 Diastolic blood pressure 76 mm[Hg] Tamar Perea Other [facility] Other 05-19-2022 11:00-0400 SaO2% (BldA) [Mass fraction] 98 % Tamar Perea Other [facility] Other 05-19-2022 11:00-0400 Systolic blood pressure 148 mm[Hg] Tamar Perea Other [facility] Other 04-15-2022 08:57-0500 Blood Pressure Location Ivelisse Lue [facility] 04-15-2022 08:57-0500 Diastolic blood pressure 78 mm[Hg] Ivelisse Lue [facility] 04-15-2022 08:57-0500 Heart rate 68 /min Ivelisse Lue [facility] 04-15-2022 08:57-0500 Respiratory rate 16 /min Ivelisse Lue [facility] 04-15-2022 08:57-0500 Systolic blood pressure 122 mm[Hg] Ivelisse Lue [facility] 03-10-2022 11:30-0500 Body height 170.18 cm Raul Quan Other [facility] Other 03-10-2022 11:30-0500 Body mass index (BMI) [Ratio] 21.2 kg/m2 Raul Quan Other [facility] Other 03-10-2022 11:30-0500 Body temperature 97.8 [degF] Raul Quan Other [facility] Other 03-10-2022 11:30-0500 Body weight 61.42 kg Raul Quan Other [facility] Other 03-10-2022 11:30-0500 Diastolic blood pressure 64 mm[Hg] Raul Lawrencerer Other [facility] [employer] Other 03-10-2022 11:30-0500 SaO2% (BldA) [Mass fraction] 98 % Raul Lawrencerer Other [facility] [employer] Other 03-10-2022 11:30-0500 Systolic blood pressure 108 mm[Hg] Raul Lawrencerer Other [facility] [employer] Other 02-25-2022 11:09-0500 Blood Pressure Location IVA ARASH [facility] 02-25-2022 11:09-0500 Diastolic blood pressure 63 mm[Hg] IVA ARASH [facility] 02-25-2022 11:09-0500 Heart rate 64 /min IVA ARASH [facility] 02-25-2022 11:09-0500 Systolic blood pressure 105 mm[Hg] IVA ARASH [facility] 02-18-2022 14:12-0500 Blood Pressure Location IVA ARASH [facility] 02-18-2022 14:12-0500 Diastolic blood pressure 83 mm[Hg] IVA ARSAH [facility] 02-18-2022 14:12-0500 Heart rate 70 /min IVA ARASH [facility] 02-18-2022 14:12-0500 Systolic blood pressure 142 mm[Hg] IVA ANTOINE [facility] 02-11-2022 08:42-0500 Blood Pressure Location Ivelisse Lue [facility] 02-11-2022 08:42-0500 Diastolic blood pressure 73 mm[Hg] Ivelisse Lue [facility] 02-11-2022 08:42-0500 Heart rate 68 /min Ivelisse Lue [facility] 02-11-2022 08:42-0500 Respiratory rate 16 /min Ivelisse Lue [facility] 02-11-2022 08:42-0500 Systolic blood pressure 150 mm[Hg] Ievlisse Lue [facility] 02-05-2022 08:00-0500 Body temperature 99.1 [degF] DO Shailesh Ball Work Phone: [facility] 02-05-2022 08:00-0500 Diastolic blood pressure 76 mm[Hg] DO Shailesh Ball Work Phone: [facility] 02-05-2022 08:00-0500 Heart rate 78 /min DO Shailesh Ball Work Phone: [facility] 02-05-2022 08:00-0500 Respiratory rate 16 /min DO Shailesh Ball Work Phone: [facility] 02-05-2022 08:00-0500 SaO2% (BldA) [Mass fraction] 95 % DO Shailesh Ball Work Phone: [facility] 02-05-2022 08:00-0500 Systolic blood pressure 168 mm[Hg] DO Shailesh Ball Work Phone: [facility] 02-05-2022 03:21-0500 Body weight 64.1 kg DO Shailesh Ball Work Phone: [facility] 02-04-2022 11:43-0500 Inhaled oxygen flow rate 6 L/min DO Shailesh Ball Work Phone: [facility] 02-04-2022 09:31-0500 Body height 167.64 cm DO Shailesh Ball Work Phone: [facility] 02-04-2022 09:31-0500 Body mass index (BMI) [Ratio] 23.3 kg/m2 DO Shailesh Ball Work Phone: [facility] 01-20-2022 12:30-0500 Body height 170.18 cm Raul Quan Other [facility] Other 01-20-2022 12:30-0500 Body mass index (BMI) [Ratio] 21.92 kg/m2 Raul Quan Other [employer] Other 01-20-2022 12:30-0500 Body temperature 97.7 [degF] Raul Quan Other [employer] Other 01-20-2022 12:30-0500 Body weight 63.5 kg Raul Quan Other [facility] Other 01-20-2022 12:30-0500 Diastolic blood pressure 64 mm[Hg] Raul Quan Other [facility] Other 01-20-2022 12:30-0500 SaO2% (BldA) [Mass fraction] 99 % Raul Quan Other [facility] Other 01-20-2022 12:30-0500 Systolic blood pressure 116 mm[Hg] Raul Buehrer Other [facility] Other 01-05-2022 11:15-0400 Body height 170.18 cm Raul Buehrer Other [facility] Other 01-05-2022 11:15-0400 Body mass index (BMI) [Ratio] 21.92 kg/m2 Raul Buehrer Other [facility] Other 01-05-2022 11:15-0400 Body temperature 96 [degF] Raul Buehrer Other [facility] Other 01-05-2022 11:15-0400 Body weight 63.5 kg Raul Buehrer Other [employer] Other 01-05-2022 11:15-0400 Diastolic blood pressure 58 mm[Hg] Raul Buehrer Other [facility] Other 01-05-2022 11:15-0400 SaO2% (BldA) [Mass fraction] 99 % Raul Buehrer Other [facility] Other 01-05-2022 11:15-0400 Systolic blood pressure 100 mm[Hg] Raul Buehrer Other [employer] Other 11-24-2021 12:30-0400 Body height 170.18 cm Tamar Perea Other [employer] Other 11-24-2021 12:30-0400 Body mass index (BMI) [Ratio] 21.92 kg/m2 Tamar Perea Other [employer] Other 11-24-2021 12:30-0400 Body temperature 97.5 [degF] Tamar Perea Other [facility] [employer] Other 11-24-2021 12:30-0400 Body weight 63.5 kg Tamar Perea Other [facility] [employer] Other 11-24-2021 12:30-0400 Diastolic blood pressure 50 mm[Hg] Tamar Perea Other [employer] Other 11-24-2021 12:30-0400 SaO2% (BldA) [Mass fraction] 98 % Tamar Perea Other [facility] [employer] Other 11-24-2021 12:30-0400 Systolic blood pressure 96 mm[Hg] Tamar Perea Other [facility] [employer] Other 10-21-2021 07:30-0400 50 1 Shailesh E Ball Work Phone: [facility] [address] [place] Work Phone: Comment on above: [id number] 10-15-2021 08:27-0400 Body height 167.64 cm DO Shailesh Ball Work Phone: [facility] 10-15-2021 08:27-0400 Body temperature 97.7 [degF] DO Shailesh Ball Work Phone: [facility] 10-15-2021 08:27-0400 Body weight 66 kg DO Shailesh Ball Work Phone: [facility] 10-15-2021 08:27-0400 Diastolic blood pressure 75 mm[Hg] DO Shailesh Ball Work Phone: [facility] 10-15-2021 08:27-0400 Heart rate 73 /min DO Shailesh Ball Work Phone: [facility] 10-15-2021 08:27-0400 Respiratory rate 16 /min DO Shailesh Ball Work Phone: [facility] 10-15-2021 08:27-0400 SaO2% (BldA) [Mass fraction] 97 % DO Shailesh Ball Work Phone: [facility] 10-15-2021 08:27-0400 Systolic blood pressure 143 mm[Hg] DO Shailesh Ball Work Phone: [facility] 09-30-2021 13:30-0400 Body height 170.18 cm Tamar Brit Other [employer] Other 09-30-2021 13:30-0400 Body mass index (BMI) [Ratio] 24.27 kg/m2 Tamar Perea Other [employer] Other 09-30-2021 13:30-0400 Body temperature 97.4 [degF] Tamar Martinezmoy Other [employer] Other 09-30-2021 13:30-0400 Body weight 70.31 kg Tamar Martinezmoy Other [employer] Other 09-30-2021 13:30-0400 Diastolic blood pressure 70 mm[Hg] Tamar Perea Other [facility] Other 09-30-2021 13:30-0400 SaO2% (BldA) [Mass fraction] 98 % Tamar Perea Other [employer] Other 09-30-2021 13:30-0400 Systolic blood pressure 140 mm[Hg] Tamar Perea Other [employer] Other 09-15-2021 11:00-0400 Body height 170.18 cm Tamar Perea Other [employer] Other 09-15-2021 11:00-0400 Body mass index (BMI) [Ratio] 24.27 kg/m2 Tamar Perea Other [facility] Other 09-15-2021 11:00-0400 Body temperature 96.4 [degF] Tamar Perea Other [facility] Other 09-15-2021 11:00-0400 Body weight 70.31 kg Tamar Perea Other [facility] Other 09-15-2021 11:00-0400 Diastolic blood pressure 72 mm[Hg] Tamar Perea Other [facility] Other 09-15-2021 11:00-0400 SaO2% (BldA) [Mass fraction] 98 % Tamar Perea Other [facility] Other 09-15-2021 11:00-0400 Systolic blood pressure 138 mm[Hg] Tamar Perea Other [facility] Other 07-28-2021 10:45-0400 Body height 170.18 cm Raul Quan Other [facility] Other 07-28-2021 10:45-0400 Body mass index (BMI) [Ratio] 24.27 kg/m2 Raul Quan Other [facility] Other 07-28-2021 10:45-0400 Body temperature 96.6 [degF] Raul Quan Other [facility] Other 07-28-2021 10:45-0400 Body weight 70.31 kg Raul Osoriojakub Other [facility] Other 07-28-2021 10:45-0400 Diastolic blood pressure 78 mm[Hg] Raul Lawrencemary ann Other [employer] Other 07-28-2021 10:45-0400 SaO2% (BldA) [Mass fraction] 98 % Raul Lawrencemary ann Other [facility] Other 07-28-2021 10:45-0400 Systolic blood pressure 190 mm[Hg] Raul Lawrencemary ann Other [facility] Other Encounters Encounter Date Encounter Type Care Provider Facility Start: 10-12-2023 End: 10-13-2023 Evaluation and management of inpatient [facility] Start: 10-06-2023 End: 10-06-2023 ambulatory [facility] Start: 10-06-2023 End: 10-06-2023 ambulatory [facility] Start: 09-17-2023 ambulatory [facility] Start: 09-03-2023 End: 09-03-2023 ambulatory DO Shailesh Ball Work Phone: [facility] Work Phone: Start: 09-03-2023 End: 09-03-2023 Patient encounter procedure DO Shailesh Ball Work Phone: [facility] Work Phone: Start: 08-31-2023 End: 08-31-2023 Patient encounter procedure DO Shailesh Ball Work Phone: [facility] Work Phone: Start: 08-31-2023 End: 08-31-2023 ambulatory DO Shailesh Ball Work Phone: [facility] C[facility] Work Phone: Start: 08-27-2023 End: 08-27-2023 ambulatory DO Shailesh Ball Work Phone: [facility] Work Phone: Start: 08-27-2023 End: 08-27-2023 Patient encounter procedure DO Shailesh Ball Work Phone: [facility] Work Phone: Start: 08-19-2023 End: 08-19-2023 ambulatory DO Shailesh Ball Work Phone: [facility] Work Phone: Start: 08-19-2023 End: 08-19-2023 Patient encounter procedure DO Shailesh Ball Work Phone: [facility] Work Phone: Start: 08-18-2023 End: 08-18-2023 ambulatory AMBER Melgoza [facility] Start: 08-18-2023 End: 08-18-2023 ambulatory AMBER Melgoza [facility] Start: 08-17-2023 End: 08-17-2023 ambulatory MARIA EUGENIA Vazquez [facility] Start: 08-13-2023 End: 08-13-2023 ambulatory MARIA EUGENIA BERRY [facility] Start: 08-04-2023 End: 08-04-2023 ambulatory MARIA EUGENIA Vazquez [facility] Start: 07-27-2023 End: 07-27-2023 ambulatory CLIFTON CORREA Not Available Start: 07-05-2023 End: 07-05-2023 ambulatory DO Shailesh Ball Work Phone: [facility] Work Phone: Start: 07-05-2023 End: 07-05-2023 Patient encounter procedure DO Shailesh Ball Work Phone: [facility] Vascular Surgery Work Phone: Start: 06-22-2023 End: 06-22-2023 ambulatory DO Shailesh Enrico Work Phone: [facility] Work Phone: Start: 06-22-2023 End: 06-22-2023 Patient encounter procedure DO Shailesh Dunham Work Phone: [facility] Work Phone: Start: 06-16-2023 End: 06-16-2023 Patient encounter procedure DO Shailesh Dunham Work Phone: [facility] Ctr-CT Scan [facility] [place] Work Phone: Start: 06-16-2023 End: 06-16-2023 ambulatory DO Shailesh Dunham Work Phone: [facility] Work Phone: Start: 05-04-2023 End: 05-05-2023 ambulatory Ivelisse Hassan Facility:[facility] Start: 05-04-2023 End: 05-04-2023 Lab Drop off Ivelisse Hassan [facility] Start: 05-04-2023 End: 05-04-2023 Patient encounter procedure Ivelisse Hassan [facility] Start: 04-28-2023 End: 04-29-2023 ambulatory Ivelisse Hassan Facility:[id number] Start: 04-26-2023 Non-patient / Non-visit DO Ryder raines Ball Work Phone: [facility] Work Phone: Start: 04-20-2023 Non-patient / Non-visit DO Ryder raines Ball Work Phone: [facility] Work Phone: Start: 04-20-2023 Non-patient / Non-visit DO Ryder Dunham Work Phone: [facility] Work [facility]: Start: 04-14-2023 End: 04-14-2023 ambulatory Shailesh Dunham Other [facility] Other Start: 04-14-2023 Encounter for other preprocedural examination Shailesh Dunham [facility] Start: 04-14-2023 Office outpatient vi sit 15 minutes Shailesh Dunham [facility] Start: 04-08-2023 End: 04-08-2023 ambulatory Shailesh Dunham Other [facility] Other Start: 04-08-2023 Telephone encounter Shailesh AYON [facility] Start: 04-05-2023 End: 04-05-2023 ambulatory Shailesh Dunham Other [facility] Other Start: 04-05-2023 Telephone encounter Shailesh AYON [facility] Start: 04-04-2023 End: 04-04-2023 ambulatory Raul Quan Other [facility] Other Start: 04-04-2023 Telephone encounter Raul Quan [facility] Start: 03-29-2023 End: 03-29-2023 ambulatory Shailesh Dunham Other [facility] Other Start: 03-29-2023 Transitional care ellen sarkar srvc 14 day discharge Shailesh Dunham [facility] Start: 03-29-2023 End: 03-29-2023 Patient encounter procedure DO Shailesh Dunham Work Phone: [facility]- Start: 03-25-2023 End: 03-25-2023 ambulatory Raul Quan Other [facility] Other Start: 03-25-2023 Telephone encounter Raul STEPHENSON [facility] Start: 03-24-2023 End: 03-25-2023 ambulatory Ivelisse Hassan Facility:[id number] Start: 01-13-2023 End: 01-14-2023 ambulatory Ivelisse Hassan Facility:[facility] Start: 01-13-2023 End: 01-13-2023 Patient encounter procedure Ivelisse Hassan [facility] Start: 11-10-2022 Office outpatient vi sit 25 minutes Raul Quan [facility] Vascular Surgery Start: 11-10-2022 End: 11-10-2022 Patient encounter procedure DO Shailesh Dunham Work Phone: [facility]-Ultrasound [facility] Start: 11-10-2022 End: 11-10-2022 ambulatory DO Shailesh Dunham Work Phone: [facility] Other Start: 10-07-2022 End: 10-08-2022 ambulatory Ivelisse Hassan Facility:[facility] Start: 10-07-2022 End: 10-07-2022 Patient encounter procedure Ivelisse Hassan [facility] [place] Start: 08-04-2022 End: 08-04-2022 ambulatory Raul Quan Other [facility] Other Start: 08-04-2022 Postop follow up vis it related to original px Raul Quan [facility] Vascular Surgery Start: 07-28-2022 End: 07-29-2022 ambulatory Ivelisse Hassan Facility:[facility] Start: 07-14-2022 ambulatory Ivelisse Hassan Facility:C [id number] Start: 07-09-2022 End: 07-09-2022 ambulatory Shailesh Dunham Other [facility] Other Start: 07-09-2022 Telephone encounter [facility] Start: 07-08-2022 End: 07-08-2022 ambulatory Shailesh Dunham Other [facility] Other Start: 07-08-2022 Telephone encounter [facility] Start: 07-08-2022 End: 07-09-2022 Evaluation and management of inpatient DO Shailesh Dunham Work Phone: [facility] Work Phone: Start: 07-01-2022 End: 07-01-2022 ambulatory DO Shailesh Dunham Work Phone: [facility] Work Phone: Start: 07-01-2022 End: 07-01-2022 Patient encounter procedure DO Shailesh Dunham Work Phone: [facility]-Pre-Surgical Testing Work Phone: Start: 06-24-2022 End: 06-25-2022 ambulatory Ivelisse Hassan Facility:[facility] Start: 06-24-2022 End: 06-24-2022 Patient encounter procedure Ivelisse Hassan [facility] Start: 05-21-2022 End: 05-21-2022 ambulatory Shailesh Dunham Other [facility] Other Start: 05-21-2022 Patient encounter procedure Shailesh Dunham [facility] Start: 05-19-2022 End: 05-19-2022 ambulatory Tamar Perea Other [facility] Other Start: 05-19-2022 Follow-up encounter Tamar Livingston [facility] Start: 05-13-2022 End: 05-13-2022 ambulatory Raul Quan Other [facility] Other Start: 05-13-2022 Telephone encounter Raul STEPHENSON [facility] Start: 05-11-2022 End: 05-11-2022 ambulatory DO Shailesh Dunham Work Phone: [facility] Work Phone: Start: 05-11-2022 End: 05-11-2022 Patient encounter procedure DO Shailesh Dunham Work Phone: [facility] Ctr-CT Scan Main [place] Work Phone: Start: 04-23-2022 End: 04-23-2022 ambulatory Raul Quan Other [employer] Other Start: 04-23-2022 Telephone encounter Raul Quan [facility] Vascular Surgery Start: 04-15-2022 End: 04-15-2022 Lab Drop off Ivelisse Hassan [facility] Start: 04-15-2022 End: 04-15-2022 Patient encounter procedure Ivelisse Hassan [facility] Start: 04-14-2022 End: 04-14-2022 ambulatory Shailesh Dunham Other [employer] Other Start: 04-14-2022 Telephone encounter Shailesh Dunham [facility] Start: 03-10-2022 End: 03-10-2022 ambulatory Raul Stanislawnakul Other [employer] Other Start: 03-10-2022 Office outpatient vi sit 25 minutes Raul Quan [facility] Vascular Surgery Start: 02-25-2022 End: 02-25-2022 Patient encounter procedure IVA ANTOINE [facility] Start: 02-18-2022 End: 02-18-2022 Patient encounter procedure IVA ANTOINE [facility] Start: 02-11-2022 End: 02-11-2022 Lab Drop off Ivelisse MSilvestre Hassan [facility] Start: 02-11-2022 End: 02-11-2022 Patient encounter procedure Ivelisse PorrasSilvestre Hymancaleb [facility] Start: 02-10-2022 End: 02-11-2022 ambulatory IVELISSE HASSAN . Facility:H1 Start: 02-07-2022 Encounter for other preprocedural examination DR RAUL QUAN [facility] Start: 02-07-2022 Encounter for preprocedural laboratory examination DR RAUL QUAN [facility] Start: 02-04-2022 End: 02-05-2022 Evaluation and management of inpatient DO Shailesh Dunham Work Phone: [facility] [place] [address] Surgical Start: 02-02-2022 End: 02-03-[address] RAUL QUAN Facility:H1 Start: 02-02-2022 End: 02-03-2022 Encounter for other preprocedural examination DR RAUL QUAN Facility:H1 Start: 01-20-2022 Office outpatient vi sit 25 minutes Raul Quan [facility] Vascular Surgery Start: 01-20-2022 End: 01-20-2022 ambulatory DO Shailesh Dunham Work Phone: [employer] [facility] [employer] Other Start: 01-20-2022 End: 01-20-2022 Patient encounter procedure DO Shailesh Dunham Work Phone: [facility] Vascular Start: 01-05-2022 End: 01-05-2022 ambulatory Raul Quan Other [employer] Other Start: 01-05-2022 Office outpatient vi sit 25 minutes Raul Quan [facility] Vascular Surgery Start: 12-08-2021 End: 12-09-[address] SHAILESH DUNHAM Facility:H1 Start: 12-02-2021 End: 12-02-[address] SHAILESH DUNHAM Facility:H1 Start: 11-24-2021 End: 11-24-2021 ambulatory Tamar Brit Other [employer] Other Start: 11-24-2021 Patient encounter procedure Tamar Perea [facility] Vascular Surgery Start: 11-11-2021 End: 11-11-[address] SHAILESH DUNHAM Facility:H1 Start: 10-26-2021 End: 10-26-[address] SHAILESH DUNHAM Facility:H1 Start: 10-21-2021 Patient encounter procedure Shailesh Dunham Work Phone: [facility] [address] [place] Work Phone: Start: 10-16-2021 Telephone encounter Judah Vivas MD Work Phone: [facility] [address] DO Work Phone: Start: 10-15-2021 End: 10-15-2021 Evaluation and management of inpatient DO Shailesh Dunham Work Phone: [facility] Surgical Start: 10-13-2021 End: 10-13-2021 Patient encounter procedure DO Sahilesh Dunham Work Phone: [facility]-Pre-Surgical Testing Start: 10-06-2021 End: 10-06-2021 Patient encounter procedure DO Shailesh Dunham Work Phone: [facility]-Pre-Surgical Testing Start: 09-30-2021 End: 09-30-2021 ambulatory Tamar Brit Other [employer] Other Start: 09-30-2021 Encounter for other preprocedural examination Tamar Perea [facility] Vascular Surgery Start: 09-30-2021 Follow-up encounter Tamar Perea [facility] Start: 09-22-2021 End: 09-23-[address] SHAILESH DUNHAM Facility: Start: 09-18-2021 End: 09-18-2021 Patient encounter procedure DO Shailesh Dunham Work Phone: [facility] Ctr-CT Scan Main [place] Start: 09-15-2021 End: 09-15-2021 ambulatory Tamar Perea Other [employer] Other Start: 09-15-2021 Follow-up encounter Tamar Perea [facility] Start: 08-27-2021 End: 08-27-2021 Patient encounter procedure DO Shailesh Dunham Work Phone: [facility] Ctr-Ultrasound [facility] Vascular Start: 08-12-2021 End: 08-13-[address] TESSIE JONAS Facility: Start: 07-28-2021 End: 07-28-2021 ambulatory Raul Quan Other [employer] Other Start: 07-28-2021 Office outpatient ne w 45 minutes Raul Quan [facility] Vascular Surgery Start: 06-13-2020 End: 06-13-2020 Patient encounter procedure Lisandra Cavazosrik Work Phone: [facility] Work Phone: Patient encounter status Judah Harrington MD Work Phone: [facility] [address] DO Work Phone: Procedures Date Procedure Procedure Detail Performing Clinician Start: 06-16-2023 Computed tomography of abdomen and pelvis with contrast DO Shailesh Dunham Work Phone: Start: 05-04-2023 Cystoscopic removal of ureteric stent Ivelisse Hassan Start: 04-28-2023 Cystoscopic insertion of ureteric stent Ivelisse Hassan Start: 11-10-2022 Doppler ultrasonography of bilateral carotid arteries DO Shailesh [employer] Phone: Start: 07-28-2022 Cystourethroscopy with dilation of urethral stricture Ivelisse Hassan Start: 07-08-2022 Insertion of carotid artery stent DO Ryder raines [employer] Phone: Start: 05-11-2022 Computed tomography angiography of abdominal and/or pelvic blood vessel DO Shailesh [employer] Phone: Start: 05-11-2022 CT angiography of head DO Shailesh [employer] Phone: Start: 05-11-2022 CT angiography of neck vessels DO Josué fischer [employer] Phone: Start: 02-10-2022 PSA screening IVELISSE HASSAN . Comment on above: Performed By: #### DATA1C #### [facility] [address] [place] [address] Dr. 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 Ivelisse Hassan Start: 02-04-2022 Endovascular repair of abdominal aortic aneurysm DO Shailesh [employer] Phone: Start: 01-20-2022 Doppler ultrasonography of bilateral carotid arteries DO Shailesh [employer] Phone: Start: 09-18-2021 Computed tomography angiography of abdominal and/or pelvic blood vessel DO Shailesh [employer] Phone: Start: 08-27-2021 US scan of aorta DO Shailesh [employer] Phone: Start: 08-27-2021 Doppler ultrasonography of bilateral carotid arteries DO Shailesh [employer] Phone: Start: 06-13-2020 Imm. administration COVID19 [employer] Work Phone: Start: 06-13-2020 SARS-CoV-2 vaccine, 0.5ml [employer] Work Phone: Start: 10-18-2019 Transurethral prostatectomy Ivelisse Hassan Start: 04-06-2019 Cystoscope, device (physical object) Ivelisse Hassan Start: 10-06-2016 Colonoscopy Ivelisse Hassan Comment on above: 2006, 2010 Arthroscopy of knee Ivelisse ellis Catheterization of left heart Ivelisse Hassan Esophagogastroduodenoscopy K britany Hassan Plan of Treatment Date Care Activity Detail Author Start: 09-01-2023 ambulatory Ambulatory Facility:[facility] Start: 08-19-2023 [facility] Start: 07-09-2022 [facility] Start: 07-08-2022 Hospital admission [facility] Start: 07-08-2022 Patient referral to dietitian [facility] Start: 02-05-2022 [facility] Start: 02-04-2022 [facility] Start: 02-04-2022 Hospital admission [facility] Start: 10-21-2021 STRESS NUC, Provider: SAL [facility]VI NUCLEAR 01,[id number], Status: Pen, Time: 7:30 AM STRESS NUC, Provider: [facility] NUCLEAR 01,[id number], Status: Pen, Time: 7:[address] [facility] [address] DO Work Phone: Start: 10-15-2021 [facility] Ctr Work Phone: Start: 10-15-2021 OR Percutaneous EVAR AAA (Not Applicable) OR Percutaneous EVAR AAA (Not Applicable) [facility] Start: 10-15-2021 End: 10-15-2021 Evaluation and management of inpatient AAA (abdominal aortic aneurysm) [facility] [place] [address] Surgical Start: 10-13-2021 End: 10-13-2021 Patient encounter procedure Departed Clinical [facility] Rnu-Reg-Beuoyvwx Testing Patient Education [facility] Ctr Work Phone: Patient referral [facility] C[facility] Work Phone: US Gallbladder [facility] Heart limited Counts Include 234 Beds At [facility] R [facility] US Heart [facility]horacic [facility] US Thoracic and abdo sebastian aorta [facility] US.doppler Carotid arteries - bilateral [facility] Immunizations Immunization Date Immunization Notes Care Provider David acevedomerlin 06-13-2020 [employer] COVID 19 Vaccine [facility] Comment on above: Note: Patient tolera shyann well. No signs or symptoms of adverse reactions. Patient waited a minimum of 15 minutes. NEGATED: Highlighted row has not occurred!01-13-2023 influenza virus vaccine, unspecified formulation Ivelisse Hassan [facility] Payers Date Payer Category Payer Self-pay [id number] 2020 Unknown [id number] 1959 Self-pay [id number] 1959 Unknown [id number] [id number] 1959 Unknown [id number] 1959 Unknown [id number] 1942 Unknown [id number] 2.16.84 0.1.318705.3.579.2.593 1942 Unknown [id number] 2.16.84 0.1.879588.3.579.2.593 1942 Unknown [id number] 2.16.84 0.1.939925.3.579.2.593 1942 Unknown [id number] 2.16.84 0.1.876639.3.579.2.593 1942 Unknown [id number] 2.16.84 0.1.085739.3.579.2.593 1942 Unknown [id number] 2.16.84 0.1.757453.3.579.2.593 1942 Unknown [id number] 2.16.84 0.1.887050.3.579.2.593 1942 Unknown [id number] 2.16.8 40.1.273571.3.579.2.727 1942 Unknown [id number] 2.16.8 40.1.236514.3.579.2.727 1942 Unknown [id number] 2.16.8 40.1.402710.3.579.2.727 1942 Unknown [id number] 2.16.8 40.1.392233.3.579.2.727 1942 Unknown [id number] 2.16.8 40.1.579201.3.579.2.727 1942 Unknown [id number] 2.16.8 40.1.720465.3.579.2.727 1942 Unknown [id number] 2.16.8 40.1.515729.3.579.2.727 1942 Unknown [id number] 2.16.8 40.1.821715.3.579.2.727 1942 Unknown [id number] 2.16.8 40.1.956688.3.579.2.727 1942 Unknown [id number] 2.16.84 0.1.259499.3.579.2.1259 Unknown Unknown [place] [id number] Unknown [id number] 2.16.84 0.1.395861.3.579.2.593 Unknown [id number] 2.16.8 40.1.784542.3.579.2.531 Unknown [id number] 2.16.8 40.1.376122.3.579.2.531 Unknown [id number] 2.16.8 40.1.461523.3.579.2.531 Social History Date Type Detail Facility Tobacco smoking status Unknown i f ever smoked [facility] Work Phone: Start: 03-08-1955 End: 03-08-1996 Sex Assigned At [facility] Start: 10-15-2021 End: 08-19-2023 Tobacco smoking status NHIS Ex-smoker (finding) [facility] Start: 1940 Sex Assigned At Male F [facility] Tobacco smoking status Never [facility] Medical Equipment Procedure Code Equipment Code Equipment Origin al Text Equipment Identifier Dates Transcarotid artery revascularization (TCAR) Bare-metal carotid artery stent ()[id number] FDA Start: 07-08-2022 Transcarotid artery revascularization (TCAR) Bare-metal carotid artery stent ()[id number] FDA Start: 07-08-2022 Percutaneous endovascular repair of abdominal aortic aneurysm (AAA) Abdominal aorta endovascular stent-graft ()[id number] FDA Start: 02-04-2022 Percutaneous endovascular repair of abdominal aortic aneurysm (AAA) Abdominal aorta endovascular stent-graft ()[id number] FDA Start: 02-04-2022 Percutaneous endovascular repair of abdominal aortic aneurysm (AAA) Abdominal aorta endovascular stent-graft ()[id number] FDA Start: 02-04-2022 Goals Date Patient Goal Desired Activity /State Functional Status Date Assessment Result Facility 05-04-2023 Functional Status N/A [facility] 01-13-2023 Functional Status N/A [facility] 10-07-2022 Functional Status N/A [facility] 07-09-2022 Functional status Patient is Pro gressing Toward Baseline [facility] Work Phone: 06-24-2022 Functional Status N/A [facility] 04-15-2022 Functional Status N/A [facility] 02-25-2022 Functional Status N/A [facility] 02-18-2022 Functional Status N/A [facility] 02-11-2022 Functional Status N/A [facility] 02-05-2022 Functional status Patient at Baseline [facility] Work Phone: 10-15-2021 Functional status Patient at Baseline [facility] Work Phone: Mental Status Date Assessment Result Facility 07-09-2022 Cognitive function Cognitive Sta tus Patient is Progressing Toward Baseline [facility] Work Phone: 02-05-2022 Cognitive function Cognitive Sta tus Patient at Baseline [facility] Ctr Work Phone: 10-15-2021 Cognitive function Cognitive Sta tus Patient at Baseline [facility] Ctr Work Phone: Clinical Notes 04-18-2020 [...] No Pharmacy Bedside Delivery Status Not Interested ([facility] in [place]) Does the patient have a disease case manager assigned to them through their insurance? No [...] to return home no needs at discharge. [facility] 10-13-2023 Note B Surgery Attendin g Patient [...] in approximately 2 weeks Amber Bryant MD [facility] 10-12-2023 Note Patient: Chico hidalgo Procedure Summary Date: 10/12/23 Room / Location: [facility] OPERATING ROOM 13 / [facility] Operating Room Anesthesia Start: 0949 Anesthesia Stop: [...] per anesthesia protocol. No notable events documented. [facility] 10-12-2023 Note Patient: Chico hidalgo Procedure Summary Date: 10/12/23 Room / Location: [facility] OPERATING ROOM 13 / [facility] Operating Room Anesthesia Start: 948 Anesthesia Stop: [...] and follow verbal commands throughout transport process [facility] 10-12-2023 Note Arterial Line: Date/Time: 10/12/2023 11:49 [...] procedure well with no complications. Staffing Performed: resident/CARE MANAGEMENT ASSOCIATE/CAA and anesthesiologist Anesthesiologist: Kathi Lyons MD Resident/CARE MANAGEMENT ASSOCIATE: Marcial Alvarado MD Performed by: Marcial Alvarado MD Authorized by: Kathi Lyons MD [facility] 10-12-2023 Note Airway Date/Time: 10/12/2023 10:03 AM Urgency: elective Airway not difficult General Information and Staff Patient location during procedure: OR Resident/CARE MANAGEMENT ASSOCIATE/CAA: Marcial Alvarado MD Performed: resident/CARE MANAGEMENT ASSOCIATE/CAA Learner assisted: Michell Castillo MS4 Indications and [...] 21 Number of attempts at approach: 1 [facility] 10-06-2023 Note SURGERY FOLLOWUP NOT E Amber [...] ???F), temperature so (more content not included)... 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 Additional Equipment Requests [facility] 08-18-2023 Note HEPATOBILIARY & PANC REAS SURGERY CONSULTATION NOTE Reason for Consult: Consult for gallbladder mass PCP: Shailesh Dunham MD Chief Complaint: Gallbladder mass History of Present Illness: Chico Melogza Samuel is a 83 y.o. male who [...] Smokeless tobacco: Never (more content not included)... [facility] 08-13-2023 Note The patient is a [...] fall with right femoral ORIF while playing [employer] Abdominal aortic stent Left carotid artery stent [...] of a gallbladder malignancy. Will send to [place] to see if the actual film from [...] bed and lymph node evaluation as well. [facility] 05-04-2023 Hospital Discharge instructions Patient Education [...] include: ?8 oz (237 mL) of milk, hrctbbv-pdgmtqrozjsq-vhwqr milk, and calcium-fortifiedfruit juice. Calcium-fortified means that [...] ?Spinach (cooked), rhubarb, beets, sweet potatoes, and Fijian chard. ?Peanuts. ?Potato chips, nauruan fries, and baked potatoes with skin on. ?Nuts and nut products. ?Chocolate. If you regularly take a diuretic medicine, make sure to eat at least 1 or 2 servings of fruits or vegetables that are high in potassium each day. These include: ?Avocado. ?Banana. ?Slope, prune, carrot, or tomato juice. ?Baked potato. [...] magnesium, fish oil, or vitamin B6. Take utjm-nid-vrlqmdb and prescription medicines only as told by [...] Casseroles. Pizza. Lasagna. Frozen meals. Potato chips. Macanese fries. The items listed above may not [...] provider. Document Revised: 06/04/2022 Document Reviewed: 06/04/2022 [employer] Patient Education 2022 [employer] Follow Up Care 04/29/2023 08:42:17 With:Mo LEIJA, Ivelisse Schreiber URErasmo, URO Address: When:Within 4 Month(s) Comments:w/KEDAR [facility] [place] 04-14-2023 Evaluation note Encounter Date Diagnosis Assessment [...] this time and surgery could be scheduled. [employer] Other 02-07-2024 Evaluation note* Encounter Date Diagnosis [...] control to proceed with his next procedure. [facility] Other 02-01-2024 Evaluation note* Encounter Date Diagnosis Assessment Notes Treatment Notes Treatment Clinical Notes Apr, Primary hypertension (ICD-10 - I10) [facility] Other 01-29-2024 Evaluation note* Encounter Date Diagnosis Assessment Notes Treatment Notes Treatment Clinical Notes Mar, Primary hypertension (ICD-10 - I10) [facility] Other 01-28-2024 Evaluation note* Encounter Date Diagnosis Assessment Notes Treatment Notes Treatment Clinical Notes Mar, Primary hypertension (ICD-10 - I10) [facility] Other 01-22-2024 Evaluation note* Encounter Date Diagnosis [...] has resolved INstructed on increasing fluids Restart [employer] Other 11-08-2023 Hospital Discharge instructions Patient Education [...] urethra. Follow these instructions at home: Take orpj-trz-niwjwzv and prescription medicines only as told by [...] provider. Document Revised: 09/10/2021 Document Reviewed: 09/10/2021 [employer] Patient Education 2022 [employer] Follow Up Care 10/07/2022 09:26:45 With:Mo LEIJA, AKILAH Smith, URO Address: When: Unknown [facility] 09-05-2023 Evaluation note* Encounter Date [...] in the office with a CT scan. [employer] Other 08-02-2023 Hospital Discharge instructions Patient Education [...] urethra. Follow these instructions at home: Take jkbl-ldw-buszyal and prescription medicines only as told by [...] provider. Document Revised: 09/10/2021 Document Reviewed: 09/10/2021 [email or web address] Patient Education 2022 [employer] Follow Up Care 07/28/2022 10:29:31 With:Mo LEIJA, AKILAH Smith, URO Address: When:Within 3 Day(s) [facility] 05-30-2023 Evaluation note* Encounter Date [...] a couple of weeks. These have resolved. [facility] Other 05-04-2023 Discharge summary Author Raul Quan [facility] July 09, 2022 12:08pm Note Date/Time July 09, 2022 8:07am [facility] [address] [place] [address] Discharge Summary Signed Patient: Chico Baker MR#: [id number] : 1940 Acct:[id number] Age/Sex: 82 / M Adm Date: 3 Loc: Room: [address] [place] [address]: Raul Quan MD Copies to: [...] midline, neck is supple, no JVD. 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 He has a little [...] <Electronically signed by MD Raul Quan> 07/09/22 1202 [facility] Ctr Work Phone: 1(367) 793-900705-03-2023 History and physical note Author Raul Quan [facility] July 08, 2022 11:06am Note Date/Time July 08, 2022 11:06a m [facility] [address] [place] [address] Vascular Surgery H&P Signed Patient: Chico Baker MR#: [id number] : 1940 Acct:[id number] Age/Sex: 82 / M Adm Date: 3 Loc: Room: [address] [place] [address] Type: ADM IN Attending Dr: Raul Quan [...] signed by MD Raul Quan> 07/08/22 1106 [facility] Work Phone: 1(840) 357-387404-19-2023 Hospital Discharge instructions Patient Education 06/24/2022 09:42:41 [...] Follow these instructions at home: Medicines Take vveg-fnl-lqbdxwc and prescription medicines only as told by [...] or the blood stops without treatment. Take xyvx-ene-cfrogxc and prescription medicines only as told by your health care provider. Drink enough fluid to keep your urine pale yellow. This information is not intended to replace advice given to you by your health care provider. Make sure you discuss any questions you have with your health care provider. Document Revised: 10/23/2020 Document Reviewed: 10/23/2020 [employer] Patient Education 2022 [employer] 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 Walk daily Inspect feet daily for cuts [employer] Other 03-14-2023 Evaluation note* Encounter Date Diagnosis [...] agree with plan, and denies any questions. [employer] Other 03-08-2023 Evaluation note* Encounter Date Diagnosis Assessment Notes Treatment Notes Treatment Clinical Notes May, Carotid stenosis, bilateral (ICD-10 - I65.23) CTA: < 50% right, 80% left [facility] Other 03-08-2023 Evaluation note* Encounter Date Diagnosis Assessment Notes Treatment Notes Treatment Clinical Notes May, Carotid stenosis, bilateral (ICD-10 - I65.23) CTA: < 50% right, 70% left - 05/2022 [employer] Other 02-08-2023 Hospital Discharge instructions Patient Education [...] prostate. Follow these instructions at home: Take vgvv-znk-gmkpggz and prescription medicines only as told by [...] 02/19/2001 Document Revised: 05/07/2018 Document Reviewed: 11/12/2016 [employer] Patient Education 2020 [employer]. Follow Up Care 02/11/2022 10:55:52 With:Mo LEIJA, AKILAH Smith, URO Address: When: Unknown [facility] 02-07-[facility] Evaluation note* Encounter Date Diagnosis Assessment Notes Treatment Notes Treatment Clinical Notes Apr, Primary hypertension (ICD-10 - I10) [facility] Other 01-03-2023 Evaluation note* Encounter Date Diagnosis [...] to perform simultaneously to minimize contrast exposure. [facility] Other 12-21-2022 Hospital Discharge instructions Patient Education 02/25/2022 12:02:33 Rash, Adult, Ckhh-pa-Ynee Rash, Adult A rash is a change [...] with your condition: Medicine Take or apply qskg-yln-lfpfngo and prescription medicines only as told by [...] the rash from spreading. Take or apply wxvv-sxb-ecrzyip and prescription medicines only as told by [...] 08/10/2008 Document Revised: 06/16/2019 Document Reviewed: 09/26/2018 [email or web address] Patient Education 2019 [employer]. Follow Up Care 02/18/2022 14:33:21 With:Ivelisse Hassan Address:Unknown When: Unknown Comments:Appointment has already been scheduled [facility] 12-14-2022 Hospital Discharge instructions Patient [...] including vitamins, herbs, eye drops, creams, and dcxt-zzf-hivhiws medicines. Any problems you or family members [...] provider tells you to take them. Taking ztvg-joa-zpfnggq medicines, vitamins, herbs, and supplements. Eating and [...] 02/22/2006 Document Revised: 06/14/2019 Document Reviewed: 11/23/2018 [employer] Patient Education 2020 [employer]. Follow Up Care 02/17/2022 16:33:06 With:ARASH BUCHANAN, IVA Ellis, URL Address: [address] [place] [address]. [place] [address] [phone] When:02/25/2022 [facility] 12-07-2022 Hospital Discharge instructions Patient [...] prostate. Follow these instructions at home: Take yado-oiv-aytlewn and prescription medicines only as told by [...] 02/19/2001 Document Revised: 05/07/2018 Document Reviewed: 11/12/2016 [employer] Patient Education 2020 [employer] Follow Up Care 01/28/2021 10:15:04 With:Mo LEIJA, AKILAH Smith, URO Address: When:6 weeks [facility] 12-01-2022 Discharge summary Author Raul Quan [facility] February 05, 2022 10:08am Note Date/Time February 05, 2022 7 :52am [facility] [address] [place] [address] Discharge Summary Signed Patient: Chico Baker MR#: [id number] : 1940 Acct:[id number] Age/Sex: 81 / M Adm Date: 2 Loc: N Room: 6N2589-[address]: Raul Quan MD Copies to: [...] % (Auto) 69.5, Lymph % (Auto) 14.4, [place] % (Auto) 14.8, Eos % (Auto) 0.7, Baso % (Auto) 0.6, Nucleat RBC Rel Count 0.1, Neut # (Auto) 7.1, Lymph # (Auto) 1.5, [place] # (Auto) 1.5 H, Eos # (Auto) 0.1, Baso # (Auto) 0.1 02/04/22 08:25: Corrected WBC 9.3, Uncorrected WBC Count 9.3, RBC 4.10, Hgb 12.4L, Hct 37.5 L, MCV 91.5, MCH 30.2, MCHC 33.0, RDW 13.7, Plt Count 198, MPV 8.5, Neut % (Auto) 70.1, Lymph % (Auto) 16.4, [place] % (Auto) 12.0, Eos % (Auto) 0.9, Baso % (Auto) 0.6, Nucleat RBC Rel Count 0.0, Neut # (Auto) 6.5, Lymph # (Auto) 1.5, [place] # (Auto) 1.1 H, Eos # (Auto) [...] signed by MD Raul Quan> 02/05/22 1008 [facility] Work Phone: 1(330) 655-292911-15-2022 Evaluation note* Encounter Date Diagnosis Assessment Notes [...] we will evaluate him for left TCAR. [facility] Other 10-31-2022 Evaluation note* Encounter Date Diagnosis [...] complete and CT confirms candidacy for TCAR [facility] Other 09-19-2022 Evaluation note* Encounter Date Diagnosis Assessment Notes Treatment Notes Treatment Clinical Notes Nov, AAA (abdominal aortic aneurysm) without rupture (ICD-10 - I71.4) This patient is still recovering from his recent orthopedic procedures. He continues with physical therapy and although he is getting stronger, he remains quite fatigued and weak yet. He has an upcoming appointment with his paramedic for preoperative risk assessment and stratification this next week. We will give him a few more weeks of physical therapy and have him back in a month or so to reschedule his AAA. He did tell me that he had some abdominal pain while in the [facility] facility and was taken to the [facility] where a CT of the abdomen was obtained. We will get these studies pushed over for review and comparison. He denies any abdominal pain today and tells me his appetite is pretty good. He knows to call us in the meantime with any issues. [facility] Other 07-26-2022 Evaluation note* Encounter Date Diagnosis [...] agrees with this plan, denies any questions. [facility] Other 07-11-2022 Evaluation note* Encounter Date Diagnosis [...] agrees with this plan, and denies questions. [facility] Other 07-11-2022 Evaluation note* Encounter Date Diagnosis [...] agrees with this plan, and denies questions. [facility] Other 05-23-2022 Evaluation note* Encounter Date Diagnosis [...] returns we will get baseline ankle-brachial indices. [facility] Other 10-06-2021 NoteHNO ID: [id number] Author: Power Catherine MD Service: ? Author Type: Physician Type: Progress Notes Filed: 12/11/2020 11:17 AM Note Text: [facility] OUTPATIENT VISIT DATE December 11, 2020 OUTPATIENT VISIT TYPE EST PRIMARY CARE PHYSICIAN: Shailesh Dunham (Jere) [address] [place] [address] REFERRING PHYSICIAN Power Catherine [address] [facility] [id number] CHIEF COMPLAINT: Patient presents with: Established Patient [...] up. Continue statin therapy. ? Power Catherine, [facility]02-11-2021 NotePatient Outreach (COVAMN) SAMUELCHICO Abad ([id number]) 1940 M Date Time Provider Department 04/18/20 RONALDSKIMBERLEY During your visit today, we recorded the following information about you: Allergies As of Date: 04/18/2020 Noted Allergy Reaction SHALINI INHIBITORS 05/09/2015 16 - Unknown GADOLINIUM-CONTAINING CONTRAST ME*05/09/2015 16 - Unknown TETANUS VACCINES AND TOXOID 05/16/2015 16 - Unknown Date Reviewed: 10/18/2017 Reviewed by: Power Catherine - Fully Assessed Order(s):SARS-COVID VACCINE 1ST DOSE APPT [[id number]] Order #: [id number] FUTURE Prescriptions as of 04/18/2020 Sig: ASPIRIN [...] (None) Encounter Status:Closed by ISIDORO JOHNSON on 04/22/20[facility] Evaluation + Plan note Future Appointments Appointment Date:04/15/2022 08:45:00 AM Scheduled Provider:Ivelisse Hassan MD Location:[facility] Appointment Type:URO Office Visit [facility] evaluation + Plan note Future Appointments Appointment Date:04/15/2022 08:45:00 AM Scheduled Provider:Ivelisse Hassan MD Location:[facility] Appointment Type:URO Office Visit Diagnostic Tests Pending * Urine Culture [facility] [facility] Future Appointments Appointment Date:02/25/2022 11:00:00 AM Scheduled Provider:IVA ANTOINE PA-C Location:[facility] Appointment Type:URO Office Visit Appointment Date:04/15/2022 08:45:00 AM Scheduled Provider:Ivelisse Hassan MD Location:[facility] Appointment Type:URO Office Visit [facility] evaluation + Plan note Future Appointments Appointment Date:06/24/2022 09:30:00 AM Scheduled Provider:Ivelisse Hassan MD Location:[facility] Appointment Type:URO Office Visit [facility] evaluation + Plan note Future Appointments Appointment Date:01/13/2023 09:00:00 AM Scheduled Provider:Ivelisse Hassan MD Location:[facility] Appointment Type:URO Office Visit [facility] evaluation + Plan note Future Appointments Appointment Date:09/01/2023 11:00:00 AM Scheduled Provider:Ivelisse Hassan MD Location:[facility] Appointment Type:URO Office Visit [facility] Evaluation + Plan note Future Appointments Appointment Date:09/01/2023 11:00:00 AM Scheduled Provider:Ivelisse Hassan MD Location:[facility] Appointment Type:URO Office Visit Diagnostic Tests Pending * Calculi Analysis Urinary 05/04/[address] [address] Diagnosis Onset Date Resolution Status AAA (abdominal aortic aneurysm) acute [facility] Work Phone: Evaluation noteNo assessment information available [facility] Work Phone: evaluation noteNo InformationNort [employer] Other evaluation note* Diagnosis Onset Date Resolution Status Left carotid stenosis acute [facility] Work Phone: evaluation note* Diagnosis Onset Date Resolution Status Hypercholesterolemia acute IFG (impaired fasting glucose) acute Kidney stones acute Nonrheumatic aortic (valve) stenosis acute Peripheral artery disease [place] Primary hypertension acute [facility] Work Phone: evaluation note* Diagnosis Onset Date Resolution Status Gallbladder polyp acute Hypercholesterolemia acute IFG (impaired fasting glucose) acute Nonrheumatic aortic (valve) stenosis acute Paget's disease of bony pelvis acute Peripheral artery disease [place] Primary hypertension acute [facility] Work Phone: evaluation note* Diagnosis Onset Date Resolution Status Gallbladder polyp acute Hypercholesterolemia acute IFG (impaired fasting glucose) acute Nonrheumatic aortic (valve) stenosis acute Paget's disease of bony pelvis acute Peripheral artery disease [place] Primary hypertension acute AAA (abdominal aortic aneurysm) without rupture acute [facility] Work Phone: Evaluation note* Diagnosis Onset Date Resolution Status Gallbladder polyp acute Hypercholesterolemia acute IFG (impaired fasting glucose) acute Nonrheumatic aortic (valve) stenosis acute Paget's disease of bony pelvis acute Peripheral artery disease [place] Primary hypertension acute AAA (abdominal aortic aneurysm) without rupture acute AAA (abdominal aortic aneurysm) without rupture acute Benign prostatic hyperplasia with lower urinary tract symptoms acute Gallbladder polyp acute Hypercholesterolemia acute Mass of gallbladder acute Nonrheumatic aortic (valve) stenosis acute Paget's disease of bony pelvis acute Peripheral artery disease [place] Primary hypertension acute [facility] Work Phone: Evaluation note* Diagnosis Onset Date Resolution Status Hypercholesterolemia acute IFG (impaired fasting glucose) acute Nonrheumatic aortic (valve) stenosis acute Paget's disease of bony pelvis acute Peripheral artery disease [place] Primary hypertension acute AAA (abdominal aortic aneurysm) without rupture acute AAA (abdominal aortic aneurysm) without rupture acute Benign prostatic hyperplasia with lower urinary tract symptoms acute Hypercholesterolemia acute Mass of gallbladder acute Nonrheumatic aortic (valve) stenosis acute Paget's disease of bony pelvis acute Peripheral artery disease [place] Primary hypertension acute AAA (abdominal aortic aneurysm) without rupture acute Hypercholesterolemia acute IFG (impaired fasting glucose) acute Mass of gallbladder acute Nonrheumatic aortic (valve) stenosis acute Peripheral artery disease [place] Primary hypertension acute Preop exam for internal medicine noneactive [facility] Work Phone: Evaluation note* Diagnosis Onset Date Resolution Status Hypercholesterolemia acute IFG (impaired fasting glucose) acute Nonrheumatic aortic (valve) stenosis acute Paget's disease of bony pelvis acute Peripheral artery disease [place] Primary hypertension acute AAA (abdominal aortic aneurysm) without rupture acute AAA (abdominal aortic aneurysm) without rupture acute Benign prostatic hyperplasia with lower urinary tract symptoms acute Hypercholesterolemia acute Mass of gallbladder acute Nonrheumatic aortic (valve) stenosis acute Paget's disease of bony pelvis acute Peripheral artery disease [place] Primary hypertension acute AAA (abdominal aortic aneurysm) without rupture acute Hypercholesterolemia acute IFG (impaired fasting glucose) acute Mass of gallbladder acute Nonrheumatic aortic (valve) stenosis acute Peripheral artery disease [facility] Primary hypertension acute Preop exam for internal medicine noneactive AAA (abdominal aortic aneurysm) without rupture acute Benign prostatic hyperplasia with lower urinary tract symptoms acute Hypercholesterolemia acute Mass of gallbladder acute Nonrheumatic aortic (valve) stenosis acute Paget's disease of bony pelvis acute Peripheral artery disease [place] Primary hypertension acute [facility] Work Phone: History general Narrative - Reported* Type Description Date Medical History hypercholesterolemia Medical History abdominal aortic aneurysm Medical History Carotid stenosis Medical History PAD Surgical History TURP Surgical History knee arthroscopy LEFT Surgical History Vein stripping Hospitalization History See Above [facility] Other History general Narrative - Reported* Type Description Date Medical History hypercholesterolemia Medical History abdominal aortic aneurysm Medical History Carotid stenosis Medical History PAD Surgical History TURP Surgical History knee arthroscopy LEFT Surgical History Vein stripping Surgical History RT FEMUR FX WITH ARABELLA PLACEMENT Hospitalization History See Above [facility] Other Hisxcep general Narrative - Reported* Type Description Date Medical History hypercholesterolemia Medical History abdominal aortic aneurysm Medical History Carotid stenosis Medical History PAD Medical History [ ] Surgical History TURP Surgical History knee arthroscopy LEFT Surgical History Vein stripping Surgical History RT FEMUR FX WITH ARABELLA PLACEMENT Surgical History EVAR 02/04/2022 Surgical History [ ] Hospitalization History See Above [facility] Other history general Narrative - Reported* Type [...] History COLONOSCOPY 2019 Hospitalization History See Above [facility] Other Hisesyx general Narrative - Reported* Type Description Date [...] stripping Surgical History RT FEMUR FX WITH ARABLELA PLACEMENT Surgical History EVAR 02/04/2022 Surgical History COLONOSCOPY 2019 Surgical History Left TCAR 07/2022 Hospitalization History See Above [facility] Other Hisfplh general Narrative - Reported* Type Description Date [...] Left TCAR 07/2022 Hospitalization History See Above [facility] Other Hisbjof general Narrative - Reported* Type Description Date [...] left ESWL 03/2023 Hospitalization History See Above [facility] Other Hospital course Narrative No data available for this section [facility] Discharge instructions No data available for this section [facility] Author Raul Quan [facility] October 15, 2021 4:31pm Note Date/Time October 15, 2021 4: 31pm [facility] [address] [place] [address] Vascular Surgery Progress Note Signed Patient: Chico Baker MR#: [id number] : 1940 Acct:[id number] Age/Sex: 81 / M Adm Date: 2 Loc: 4N Room: [address] [place] [address] Type: DIS IN Attending Dr: Raul Quan [...] evaluation here. I will contact [facility] to performoutpatient cardiac evaluation and then he will be rescheduled when he is cleared. Code(s): I71.4 - Abdominal aortic aneurysm, without rupture Status: Acute Documented By: Raul Quan MD 10/15/21 162 9 Signed By: <Electronically signed by MD Raul Quan> 10/15/21 1631 [facility] Work Phone: progress note Author Pb Zurita [facility] October 16, 2021 5:41am Note Date/Time October 16, 2021 5: 41am [facility] [address] [place] [address] Anesthesia Progress Note Signed Patient: Chico Baker MR#: [id number] : 1940 Acct:[id number] Age/Sex: 81 / M Adm Date: 2 Loc: 4N Room: [address] [place] [address] Type: DIS IN Attending Dr: Raul Qaun MD Copies to: ~ Anesthesia Progress Note Narrative Narrative: Patient for EVAR today for 5+ centimeter infrarenal AAA. Past medical history hypertension, moderate aortic stenosis, and coronary artery disease. Review of medical records and discussion with indicates patient had stress test 2009 positive for infarct and ischemia at which time he was referred to [facility] and had cardiac cath. Medical management was apparently chosen. No interval events,testing, or intervention. Patient has been asymptomatic but sedentary and poor historian. Advised patient and family to see paramedic for consideration of preop stress testing. Discussed with surgeon Documented By: Pb Zurita MD 10/16/21 0535 Signed By: <Electronically signed by Pb Zurita MD> 10/16/21 0571 [facility] Work Phone: Progrwxu note No data available for this section [facility] Reason for Referral No Reason [...] i71.4 BP check S/P EVAR; [facility] Nonrheumatic aortic stenosis Reason [...] i71.4 BP check S/P EVAR; [facility] Nonrheumatic aortic stenosis sugical [...] i71.4 BP check S/P EVAR; [facility] Nonrheumatic aortic stenosis sugical [...] i71.4 BP check S/P EVAR; [facility] Nonrheumatic aortic stenosis sugical [...] section and content) DATE CREATED AUTHOR 04/02/2021 [facility] DATE CREATED AUTHOR AUTHOR'S ORGANIZ ATION 10/28/2021 [facility] DATE CREATED AUTHOR AUTHOR'S ORGANIZ ATION 04/14/2022 [facility] DATE CREATED AUTHOR AUTHOR'S ORGANIZ ATION 05/13/2023 [facility] DATE CREATED AUTHOR AUTHOR'S ORGANIZ ATION 07/29/2023 [facility] EPIC DATE CREATED AUTHOR AUTHOR'S ORGANIZ ATION 09/08/2023 [facility] DATE CREATED AUTHOR AUTHOR'S ORGANIZ ATION 10/14/2023 [facility] REASON FOR VISIT (unrecogniz ed section and content) REF BY DR DUNHAM FOR AAA, PAD AND CAROTID STENOSIS, Needs a new vascular surgeon7 WK FOLLOW UP; SHYANNE'S, ABDOMINAL, CAROTID [facility]K FOLLOW UP; SHYANNE'S, ABDOMINAL, CAROTID 08/27/21FOLLOW UP AFTER CTA [facility] 09/18/21-AAAAAA see pt post femur fx rt [...] Member Role Status Dates Sheri Christiansen MD Power Project Manager Active Shailesh Dunham DO Primary Care Provider [...] BE BASED ON THE PRIMARY CLINICAL RECORDS. [facility]. provides no warranty or guarantee of the accuracy or completeness of information in this document.
--- NOTE | 2023-10-14 16:47 | P.HP_ITS ---
HPI H&P: HPI History of Present Illness Chief complaint: SHORTNESS OF BREATH/ CHEST PAIN, a-fib w/rvr Narrative: 83-year-old male who recently had laparoscopic cholecystectomy about 2 days ago reports worsening shortness of breath, intermittent chest discomfort ever since he had surgery. He also reports bilateral lower extremity edema, orthopnea and paroxysmal nocturnal dyspnea. He reports that ever since surgery he felt like he could not catch his breath. He denies experiencing lightheadedness, heart palpitations. Patient came to ED earlier today when his symptoms did not improve and he was found to have A-fib with RVR with rate as high as 150. Since patient had recent abdominal surgery, ER provider ordered a CTA chest to rule out acute pulmonary embolism that was negative. Patient was started on IV Cardizem drip and admitted to ICU for further management. Upon my assessment, patient is a still dyspneic at rest and has conversational dyspnea but subjectively he himself feels a little bit better after IV Lasix. His heart rate is in the 100s while on IV Cardizem at 5 mg/h. Patient has multiple cardiac risk factors and is a known vasculopath with carotid artery disease, abdominal aortic aneurysm but has no known coronary artery disease and never had percutaneous coronary intervention for it. He was also noted to have severe aortic stenosis noted on echocardiogram that was performed in June earlier this year. Patient was informed that he will need aortic valve replacement but it was on hold because of his planned abdominal surgery. On a separate note, patient fell while playing golf about 3 weeks ago and has a clavicle fracture on left side from it. His arm is in a sling and he has limited mobility from his left arm Opioid HPI Opioid Management Most Recent Pain and Opioid Data: Last Pain Scale 8 09/22/23 21:55 Last Pain Assessment 10/14/23 16:00 Last ORT Total Score 0 10/14/23 14:31 Last ORT Risk Category Low Risk 10/14/23 14:31 Review of Systems ROS Status of ROS 10 or more systems reviewed and unremark able except as noted in history and below [facility] Medical History (Updated 10/14/23 @ 16:50 by Shaikh Agustina MD) Clavicular fracture ?S42.009A - Fracture of unspecified part of unspecified clavicle, initial encounter for closed fracture (ICD-10) Presence of internal carotid stent (~07/2022) ?Z95.828 - Presence of other vascular implants and grafts (ICD-10) Aortic valve stenosis ?I35.0 - Nonrheumatic aortic (valve) stenosis (ICD-10) Heart murmur ?R01.1 - Cardiac murmur, unspecified (ICD-10) Carotid stenosis ?I65.29 - Occlusion and stenosis of unspecified carotid artery (ICD-10) Anemia ?D64.9 - Anemia, unspecified (ICD-10) Femur fracture (~10/2021) ?S72.90XA - Unspecified fracture of unspecified femur, initial encounter for closed fracture (ICD-10) AAA (abdominal aortic aneurysm) ?I71.40 - Abdominal aortic aneurysm, without rupture, unspecified (ICD-10) Heartburn ?R12 - Heartburn (ICD-10) Delayed recovery from anesthesia Urethral stricture ?N35.919 - Unspecified urethral stricture, male, unspecified site (ICD-10) Post-void dribbling ?N39.43 - Post-void dribbling (ICD-10) Penile rash ?R21 - Rash and other nonspecific skin eruption (ICD-10) Paget's disease Nocturia ?R35.1 - Nocturia (ICD-10) Incontinence ?R32 - Unspecified urinary incontinence (ICD-10) Microhematuria ?R31.29 - Other microscopic hematuria (ICD-10) Impotence ?N52.9 - Male erectile dysfunction, unspecified (ICD-10) Hypertension ?I10 - Essential (primary) hypertension (ICD-10) Hyperlipidemia ?E78.5 - Hyperlipidemia, unspecified (ICD-10) Kidney stones ?N20.0 - Calculus of kidney (ICD-10) Gross hematuria ?R31.0 - Gross hematuria (ICD-10) Erectile dysfunction ?N52.9 - Male erectile dysfunction, unspecified (ICD-10) Dysuria ?R30.0 - Dysuria (ICD-10) BPH (benign prostatic hyperplasia) ?N40.0 - Benign prostatic hyperplasia without lower urinary tract symptoms (ICD-10) Asymptomatic microscopic hematuria ?R31.21 - Asymptomatic microscopic hematuria (ICD-10) ASHD (arteriosclerotic heart disease) ?I25.10 - Atherosclerotic heart disease of [place] coronary artery without angina pectoris (ICD-10) Surgical History (Updated 03/25/23 @ 13:51 by Rajni Rios NP) H/O lithotripsy ?Z98.890 - Other specified postprocedural states (ICD-10) History of open reduction and internal fixation (ORIF) procedure (~10/2021) ?Z98.890 - Other specified postprocedural states (ICD-10) Hx of esophagogastroduodenoscopy ?Z98.890 - Other specified postprocedural states (ICD-10) H/O cardiac catheterization ?Z98.890 - Other specified postprocedural states (ICD-10) H/O arthroscopy of knee ?Z98.890 - Other specified postprocedural states (ICD-10) H/O colonoscopy ?Z98.890 - Other specified postprocedural states (ICD-10) H/O cystoscopy ?Z98.890 - Other specified postprocedural states (ICD-10) H/O transurethral resection of prostate ?Z98.890 - Other specified postprocedural states (ICD-10) ?Z90.79 - Acquired absence of other genital organ(s) (ICD-10) S/P AAA repair (~02/2022) ?Z98.890 - Other specified postprocedural states (ICD-10) ?Z86.79 - Personal history of other diseases of the circulatory system (ICD- 10) S/P cystourethroscopy with dilation of urethral stricture ?Z98.890 - Other specified postprocedural states (ICD-10) Social History Within the past year, how often did you have a drink containing alcohol: 2-3 times a week Smoking status: Former smoker Non-prescribed substance use: denies use Previous occupational history: retired Highest level of school completed/degree received: high school graduate Are you now , , , , never or living with a partner: In a typical week, how many times do you talk on the telephone with family, friends, or neighbors: twice per week How often do you get together with friends or relatives: twice per week Little interest or pleasure in doing things: not at all Feeling down, depressed, or hopeless: not at all Feel stressed/tense/nervous/anxious/difficulty sleeping: not at all Do you think of yourself as: straight/heterosexual Gender Identity: male Meds Home Medications and Allergies Home Medications ?Medication ?Instructions ?Recorded ?Confirmed ?Type pravastatin 40 mg tablet 40 mg PO QPM 03/12/23 10/14/23 History cholecalciferol (vitamin D3) 25 25 mcg PO BID 03/24/23 10/14/23 History mcg (1,000 unit) capsule carvedilol 25 mg tablet (Coreg) 25 mg PO BID 04/04/23 10/14/23 History isosorbide mononitrate 30 mg 30 mg PO DAILY 10/14/23 10/14/23 History tablet,extended release 24 hr losartan 50 mg tablet 50 mg PO QPM 10/14/23 10/14/23 History Allergies Allergy/AdvReac Type Severity Reaction Status Date / Time SHALINI Inhibitors Allergy Unknown Unknown Verified 09/22/23 21:07 Iodinated Contrast Media Allergy Unknown Hives Verified 09/22/23 21:07 iodine Allergy Unknown Hives Verified 09/22/23 21:07 tetanus toxoid, adsorbed Allergy Unknown Unknown Verified 09/22/23 21:07 Exam Constitutional Vital Signs, click to edit/add: Last Vital Signs Temp 97.7 F 10/14/23 16:00 Pulse 103 H 10/14/23 16:00 Resp 18 10/14/23 16:00 BP 113/65 10/14/23 16:00 Pulse Ox 95 10/14/23 16:00 O2 Del Method Room Air 10/14/23 15:40 O2 Flow Rate 1 10/14/23 10:42 General appearance: cooperative, comfortable and ill appearing Nutritional appearance: thin Orientation/consciousness: Yes awake, Yes oriented to person, Yes oriented to place and Yes oriented to time HENMT Common normals: normocephalic and head/scalp atraumatic Respiratory Common normals: normal respiratory effort and no use of accessory muscles Effort & inspection: tachypneic Auscultation: diminished lung sounds Other: Conversational dyspnea noted Cardio Jugular venous distention: JVD Rate: tachycardic Rhythm: abnormal rhythm Heart sounds: murmur systolic GI Common normals: Normal to inspection, nondistended, normoactive bowel sounds present, soft to palpation and non-tender Other: Surgical scar from recent laparoscopic cholecystectomy Extremity Common normals: full ROM General: edema (+2 bilateral lower extremity) Neuro Common normals: oriented x3, moves all extremities and no focal motor deficits Psych Common normals: mental status grossly normal, thought process normal, denies homicidal ideation and denies suicidal ideation Results Labs Labs: Short CBC 10/14/23 Range/Units 10:13 WBC 15.7 H (4.0-11.0) 10^3/uL Hgb 10.6 L (14.0-18.0) g/dL Hct 31.6 L (42.0-54.0) % Plt Count 191 (150-450) 10^3/uL BMP 10/14/23 10:13 Sodium 130 L Potassium 4.1 Chloride 95 L Carbon Dioxide 24.6 BUN 20.0 H Creatinine 0.97 Glucose 176 H Calcium 8.6 Assessment and Plan Assessment and Plan (1) Atrial fibrillation with RVR: Assessment and Plan: A-fib with RVR, on IV Cardizem. Continue with carvedilol. Wean off Cardizem as tolerated. Cardiology consulted (2) NSTEMI (non-ST elevated myocardial infarction): Assessment and Plan: Patient presented with intermittent chest discomfort, elevated troponin that are trending down. Patient has no known coronary artery disease but has history of carotid artery disease that required stent placement along with history of abdominal aortic aneurysm that required repair. Started patient on aspirin, already on statin. Started on Lovenox therapeutic dose for NSTEMI and A-fib. (3) Acute on chronic diastolic (congestive) heart failure: Assessment and Plan: Elevated BNP, evidence of volume overload on exam. Started patient on IV Lasix 40 twice daily. Monitor intake output, daily weights. Echocardiogram ordered to assess cardiac structure especially given elevated troponin and severe aortic stenosis. Consulted Cardiology (4) Hyponatremia: Assessment and Plan: Likely hypervolemic hyponatremia. Started on IV Lasix. Monitor intake/output. Monitor BMP. (5) Hypertension: Assessment and Plan: Blood pressure is stable. Monitor closely while on IV Cardizem Qualifiers: Hypertension type: primary hypertension Qualified Code(s): I10 - Essential (primary) hypertension (6) Aortic valve stenosis: Assessment and Plan: Severe aortic valve stenosis based on echo. Repeat echocardiogram to assess cardiac structure. Consulted cardiology. Qualifiers: Cardiac valve disease etiology: nonrheumatic Qualified Code(s): I35.0 - Nonrheumatic aortic (valve) stenosis (7) Carotid stenosis: Assessment and Plan: Status post carotid artery stenting. On aspirin, statin Qualifiers: Laterality: bilateral Qualified Code(s): I65.23 - Occlusion and stenosis of bilateral carotid arteries (8) AAA (abdominal aortic aneurysm): Assessment and Plan: Status post repair. Continue with aspirin and statin. Qualifiers: Abdominal aorta location: infrarenal aorta Presence of rupture: without rupture Qualified Code(s): I71.43 - Infrarenal abdominal aortic aneurysm, without rupture (9) Hyperlipidemia: Assessment and Plan: Check lipid panel. Continue aspirin and statin Qualifiers: Hyperlipidemia type: mixed hyperlipidemia Qualified Code(s): E78.2 - Mixed hyperlipidemia (10) Clavicular fracture: Assessment and Plan: From mechanical fall while playing golf about 3 weeks ago. He has an arm sling in place. Pain is well-controlled. Qualifiers: Encounter type: subsequent encounter Clavicle location: lateral end Fracture type: closed Fracture alignment: nondisplaced Laterality: left Fracture healing: with routine healing Qualified Code(s): S42.035D - Nondisplaced fracture of lateral end of left clavicle, subsequent encounter for fracture with routine healing
[2023-10-14 16:55] LABS: Troponin I High Sensitivity 279.3 pg/mL (4.0-76.1)
--- NOTE | 2023-10-14 20:46 | ECG_ITS ---
[facility] Test Date: 2023-10-14 Pat Name: CHICO BAKER Department: Room: [facility] Gender: Male [employer] Professor: : 1940 Requested By: DESHAUN WESTON Order Number: [id number] Reading MD: DESHAUN WESTON Measurements Intervals [place] Rate: 65 P: 90 UT: 162 QRS: 79 QRSD: 86 T: 96 QT: 428 QTc: 440 Interpretive Statements 1100 Sinus rhythm [address] depression 9150 abnormal ECG Electronically Signed On 10-15-2023 6:52:41 EDT by DESHAUN WESTON
[2023-10-14] MEDS: ATORVASTATIN CALCIUM 10 MG TABLET PO (21:05)
[2023-10-14] MEDS: CARVEDILOL 25 MG TABLET PO (21:05)
[2023-10-14] MEDS: FUROSEMIDE 40 MG/4 ML VIAL IVP (21:05)
[2023-10-14] MEDS: CHOLECALCIFEROL (VITAMIN D3) 25 MCG/1,000 UNITS TABLET PO (21:05)
[2023-10-15] VITALS (164 sets, daily range): BP systolic 111–186; BP diastolic 54–84; PULSE 60–105; TEMP 36.6–37.2; O2SAT 94–100
[2023-10-15] MEDS: ENOXAPARIN SODIUM 60 MG/0.6 ML SYRINGE SUBQ (06:31)
[2023-10-15 06:56] LABS: Hematocrit 28.8 % (42.0-54.0); Hemoglobin 9.6 g/dL (14.0-18.0); Immature Granulocytes Abs Auto 0.03 10^3/uL (0.00-0.03); Immature Granulocytes Pct Auto 0.4 % (0.0-0.5); Lymphocytes Absolute Auto 0.8 10^3/uL (1.2-3.8); Lymphocytes Percent Auto 9.2 % (20.5-60.0); Mean Corpuscular HGB Conc 33.3 g/dL (29.9-35.2); Mean Corpuscular Hemoglobin 30.3 pg (25.9-34.0); Mean Corpuscular Volume 90.9 fL (80.0-94.0); Mean Platelet Volume 10.1 fL (9.5-13.5); Monocytes Absolute Auto 0.7 10^3/uL (0.3-0.8); Neutrophils Absolute Auto 6.7 10^3/uL (1.4-6.5); Neutrophils Percent Auto 81.4 % (43.0-75.0); Platelet Count 152 10^3/uL (150-450); Red Blood Count 3.17 10^6/uL (4.70-6.10); Red Cell Distribution Width 12.4 % (11.0-15.0); White Blood Count 8.2 10^3/uL (4.0-11.0)
[2023-10-15 07:29] LABS: Alanine Aminotransferase 50 U/L (16-63); Albumin Globulin Ratio 0.8; Albumin Level 2.9 g/dL (3.4-5.0); Alkaline Phosphatase 100 U/L (46-116); Anion Gap 12.1; Aspartate Amino Transferase 27 U/L (15-37); BUN Creatinine Ratio 24.1; Bilirubin Total 0.8 mg/dL (0.2-1.0); Calcium 8.7 mg/dL (8.5-10.1); Carbon Dioxide 26.8 mmol/L (21.0-32.0); Chloride 99 mmol/L (98-107); Estimated GFR (African America >60 (>=60); Estimated GFR (Non-African Ame >60 (>=60); Globulin 3.5 g/dL; Glucose 137 mg/dL (74-106); Potassium 3.9 mmol/L (3.5-5.1); Sodium 134 mmol/L (136-145); Total Protein 6.4 g/dL (6.4-8.2)
[2023-10-15 07:39] LABS: Magnesium 1.6 mg/dL (1.8-2.4); Thyroid Stimulating Hormone 0.543 uIU/mL (0.358-3.740)
[2023-10-15 07:57] LABS: Chol HDL Ratio 2.3; Cholesterol 89 mg/dL (<=200); HDL Cholesterol 39 mg/dL (40-60); Triglycerides 56 mg/dL (<=150); VLDL CHOLESTEROL 11.2 mg/dL
[2023-10-15] MEDS: MAGNESIUM SULFATE IN WATER 2 GM/50 ML PREMIX IV (08:40)
[2023-10-15] MEDS: CHOLECALCIFEROL (VITAMIN D3) 25 MCG/1,000 UNITS TABLET PO ×2 (08:40→21:40)
[2023-10-15] MEDS: CARVEDILOL 25 MG TABLET PO ×2 (08:40→21:41)
--- NOTE | 2023-10-15 09:18 | SWNOTE1 ---
Important Message from Medicare reviewed and discussed with patient. Pt. verbalized understanding and signed the form. Original given to patient and copy placed in patient?s chart. Pt voiced he is feeling better and hopeful for discharge today.
[2023-10-15] MEDS: FUROSEMIDE 40 MG/4 ML VIAL IVP ×2 (09:27→21:37)
--- NOTE | 2023-10-15 10:22 | PM.IMPN1 ---
Progress Note: A&P Assessment and Plan (1) Atrial fibrillation with RVR: Assessment and Plan: Converted to normal sinus rhythm overnight. Continue with Coreg. Cardiology consult is pending. Echocardiogram performed this morning, final report is pending. (2) NSTEMI (non-ST elevated myocardial infarction): Assessment and Plan: Presented with chest pain, shortness of breath along with A-fib with RVR. Elevated cardiac enzymes that have trended down. He denies chest pain, shortness of breath. Continue with aspirin, statin, carvedilol. He was given subcutaneous Lovenox but he refused given his recent abdominal surgery 2 days ago. Cardiology consult is pending (3) Acute on chronic diastolic (congestive) heart failure: Assessment and Plan: Still has evidence of volume overload on exam. Continue with IV Lasix. Echocardiogram is pending. Monitor intake/output, daily weight. (4) Hyponatremia: Assessment and Plan: Hypervolemic hyponatremia, resolved with IV Lasix. Monitor serum sodium closely. (5) Hypertension: Assessment and Plan: Blood pressure is above goal today. Resume losartan. Continue with carvedilol. Continue with isosorbide Qualifiers: Hypertension type: primary hypertension Qualified Code(s): I10 - Essential (primary) hypertension (6) Aortic valve stenosis: Assessment and Plan: Severe aortic valve stenosis based on echo in June. Repeat echo is pending. Qualifiers: Cardiac valve disease etiology: nonrheumatic Qualified Code(s): I35.0 - Nonrheumatic aortic (valve) stenosis (7) Carotid stenosis: Assessment and Plan: Status post stenting. On aspirin, statin Qualifiers: Laterality: bilateral Qualified Code(s): I65.23 - Occlusion and stenosis of bilateral carotid arteries (8) AAA (abdominal aortic aneurysm): Assessment and Plan: Status post repair. Monitor Qualifiers: Abdominal aorta location: infrarenal aorta Presence of rupture: without rupture Qualified Code(s): I71.43 - Infrarenal abdominal aortic aneurysm, without rupture (9) Hyperlipidemia: Assessment and Plan: Continue with statin Qualifiers: Hyperlipidemia type: mixed hyperlipidemia Qualified Code(s): E78.2 - Mixed hyperlipidemia (10) Clavicular fracture: Assessment and Plan: Conservative/nonoperative management Qualifiers: Encounter type: subsequent encounter Clavicle location: lateral end Fracture type: closed Fracture alignment: nondisplaced Laterality: left Fracture healing: with routine healing Qualified Code(s): S42.035D - Nondisplaced fracture of lateral end of left clavicle, subsequent encounter for fracture with routine healing Internal Medicine - PN: Subj Subjective Interval history: Seen and examined. No acute overnight events. Converted to normal sinus rhythm overnight. Cardizem drip was discontinued earlier this morning. Patient subjectively feels better with improved breathing but still feeling exertional dyspnea. Exam Constitutional Vital Signs, click to edit/add: Last Vital Signs Temp 98 F 10/15/23 07:46 Pulse 71 10/15/23 09:52 Resp 16 10/15/23 07:46 BP 148/66 H 10/15/23 07:46 Pulse Ox 98 10/15/23 07:46 O2 Del Method Room Air 10/15/23 07:46 O2 Flow Rate 1 10/14/23 10:42 General appearance: cooperative, comfortable and ill appearing Nutritional appearance: thin Orientation/consciousness: Yes awake, Yes oriented to person, Yes oriented to place and Yes oriented to time Respiratory Common normals: normal respiratory effort and no use of accessory muscles Auscultation: rales bilateral and diminished lung sounds Other: Conversational dyspnea noted Cardio Jugular venous distention: JVD Heart sounds: murmur systolic GI Common normals: Normal to inspection, nondistended, normoactive bowel sounds present, soft to palpation and non-tender Other: Surgical scar from recent laparoscopic cholecystectomy Extremity Common normals: full ROM General: edema (Trace pedal edema) Neuro Common normals: oriented x3, moves all extremities and no focal motor deficits Psych Common normals: mental status grossly normal, thought process normal, denies homicidal ideation and denies suicidal ideation Internal Medicine - PN: Obj Da Labs Labs: Laboratory Results - last 24 hr 10/14/23 10/14/23 10/14/23 10:13 11:46 16:24 WBC 15.7 H RBC 3.44 L Hgb 10.6 L Hct 31.6 L MCV 91.9 MCH 30.8 MCHC 33.5 RDW 12.2 Plt Count 191 MPV 10.1 Neut % (Auto) 80.7 H Lymph % (Auto) 9.1 L [place] % (Auto) 9.6 Eos % (Auto) 0.1 L Baso % (Auto) 0.1 L Neut # (Auto) 12.7 H Lymph # (Auto) 1.4 [place] # (Auto) 1.5 H Eos # (Auto) 0.0 Baso # (Auto) 0.0 Abs Immat Gran (auto) 0.07 H Imm/Tot Granulo (auto) 0.4 PT 11.6 INR 1.11 APTT 30.8 Sodium 130 L Potassium 4.1 Chloride 95 L Carbon Dioxide 24.6 Anion Gap 14.5 BUN 20.0 H Creatinine 0.97 Est GFR ( Amer) >60 Est GFR (Non-Af Amer) >60 BUN/Creatinine Ratio 20.6 Glucose 176 H Calcium 8.6 Magnesium Total Bilirubin AST ALT Alkaline Phosphatase Troponin I High Sens 366.3 H* 330.4 H* 279.3 H* NT-Pro-B Natriuret Pep 9227.0 H* Total Protein Albumin Globulin Albumin/Globulin Ratio Triglycerides Cholesterol LDL Cholesterol, Calc VLDL Cholesterol HDL Cholesterol Cholesterol/HDL Ratio TSH 10/15/23 06:34 WBC 8.2 RBC 3.17 L Hgb 9.6 L Hct 28.8 L MCV 90.9 MCH 30.3 MCHC 33.3 RDW 12.4 Plt Count 152 MPV 10.1 Neut % (Auto) 81.4 H Lymph % (Auto) 9.2 L [place] % (Auto) 9.0 Eos % (Auto) 0.0 L Baso % (Auto) 0.0 L Neut # (Auto) 6.7 H Lymph # (Auto) 0.8 L [place] # (Auto) 0.7 Eos # (Auto) 0.0 Baso # (Auto) 0.0 Abs Immat Gran (auto) 0.03 Imm/Tot Granulo (auto) 0.4 PT INR APTT Sodium 134 L Potassium 3.9 Chloride 99 Carbon Dioxide 26.8 Anion Gap 12.1 BUN 20.0 H Creatinine 0.83 Est GFR ( Amer) >60 Est GFR (Non-Af Amer) >60 BUN/Creatinine Ratio 24.1 Glucose 137 H Calcium 8.7 Magnesium 1.6 L Total Bilirubin 0.8 AST 27 ALT 50 Alkaline Phosphatase 100 Troponin I High Sens NT-Pro-B Natriuret Pep Total Protein 6.4 Albumin 2.9 L Globulin 3.5 Albumin/Globulin Ratio 0.8 Triglycerides 56 Cholesterol 89 LDL Cholesterol, Calc 39.0 VLDL Cholesterol 11.2 HDL Cholesterol 39 L Cholesterol/HDL Ratio 2.3 TSH 0.543
--- NOTE | 2023-10-15 10:41 | CM.NOTE ---
Rounds made with Dr. Berrios. Dr. Berrios discussed lab results, treatment plan and need for Echo and Cardiology consult. Reynaldo verbalized understanding. No discharge planned today. To be transferred to [facility] with telemetry.
[2023-10-15] MEDS: ISOSORBIDE MONONITRATE 30 MG TAB.ER.24H PO (11:14)
--- OUTSIDE RECORDS SUMMARY | 2023-10-15 14:49 | XMS_ITS | CCD ---
Author Organization [facility] Inform ion [facility] Care Team Providers Care Dehydrogenation Operator Name Role Phone Orlando Dotson Fernando Unavailable Raul Quan Unavailable Tamar Perea Unavailable Shailesh Dunham Unavailable DO Shailesh Dunham Primary Care Provider MD Raul Quan Attending Provider KB Perea Attending Provider MD Raul Quan Admit Provider DO Shailesh Dunham Primary Care Provider [phone] KB Perea Attending Provider MD Raul Quan Admit Provider MD Raul Quan Attending Provider SHAILESH DUNHAM Primary Care Physician [phone] [place] .IVELISSE Admitting Unavailable LUCaleb .IVELISSE Attending [...] MD Raul Quan Attending Provider DO Shailesh Dunhma Primary Care Provider MD Raul Quan Attending Provider MD Raul Quan Admit Provider [phone] DO Shailesh Dunham Primary Care Provider MD [...] Referring Unavailable MD Sheri Christiansen Attending Provider [phone] Shailesh Dunham Primary Care Unavailable Sheri Christiansen [...] Translations: [SHALINI Inhibitors] Drug Allergy 08-27-19 24 [facility] Tetanus immune globulin (3 sources) Tetanus immune globulin; Translations: [tetanus immune globulin] Drug Allergy 08-27-19 Unknown Reaction [facility] (5 sources) Angiotensin Converting Enzyme (Shalini) Inhibitors Drug allergy Unknown [facility] Other (6 sources) Tetanus vaccine; Translations: [tetanus toxoid] Drug allergy Unknown [facility] Repository (20 sources) Angiotensin Converting Enzyme (Shalini) Inhibitors; Translations: [Angiotensin-conv erting enzyme inhibitor agent (substance)] Allergy to substance 05-09-19 16 [facility], [facility] (8 sources) Contrast media Allergy to substance 10-07-19 [facility] (15 sources) Tetanus immune globulin; Translations: [TETANUS IMMUNE GLOBULIN] Drug Allergy 02-24-20 19 Unknown Reaction [facility] (20 sources) Angiotensin-conve rting enzyme inhibitor agent Drug allergy Unknown [facility] Other (2 sources) Tetanus toxoid specific immunoglobulin E Drug allergy Unknown [facility] Other (12 sources) Contrast media; Translations: [Contrast Dye] Allergy to substance unknown [facility] (13 sources) Iodine; Translations: [iodine] Drug Allergy 10-27-19 22 Unknown (qualifier value) [facility] (11 sources) tetanus toxoid vaccine, inactivated; Translations: [tetanus toxoid] Drug Allergy Unknown (qualifier value) [facility] (1 source) Iodine Drug Allergy [facility] Repository (1 source) Iodine (And Iodine Containting Drugs) Drug allergy (disorder) [facility] Repository (1 source) Tetanus AND Diphtheria Tox,Adult Drug allergy (disorder) [facility] Repository (20 sources) Tetanus vaccine Drug allergy Unknown [facility] Other (13 sources) Iodinated Contrast Media; Translations: [Iodinated Contrast Media] Allergy to substance 10-27-19 22 [facility] (9 sources) tetanus toxoid, adsorbed; Translations: [tetanus toxoid, adsorbed] Allergy to substance 04-26-19 24 Unknown Reaction [facility] (1 source) GADOLINIUM-CONTAI MAYA CONTRAST MEDIA; Translations: [GADOLINIUM-CONTA INING CONTRAST MEDIA] Propensity to adverse reactions to drug (disorder) 05-09-19 16 [facility] Repository (1 source) TETANUS AND DIPHTHERIA TOXOIDS; Translations: [TETANUS AND DIPHTHERIA TOXOIDS] Propensity to adverse reactions to drug (disorder) 10-27-19 22 [facility] Repository (1 source) TETANUS VACCINES AND TOXOID; Translations: [TETANUS VACCINES AND TOXOID] Propensity to adverse reactions to drug (disorder) 05-16-19 16 [facility] Repository (1 source) ALLERGIES NOT ON FILE; Translations: [ALLERGIES NOT ON FILE] Propensity to adverse reactions (disorder) [facility] Repository Medications Current Medications Medication Drug Class(es) [...] 2019 1:00am April 26, 2023 6:54pm Isosorbide Butler itrate Active isosorbide dinitrate 30 mg oral [...] Daily, # 30 tab(s), Refills(s) 6, Pharmacy: [facility]/pharmacy #[id number], 169, cm, 10/07/22 [...] for 30 day(s), 60 tab(s), Refill(s) 0, [facility]/pharmacy #[id number], 169, cm, 02/11/22 [...] acid 7540 MG / polyethylene glycol 3350 85980 MG / potassium chloride 1200 MG / sodium ascorbate 58173 MG / sodium chloride 3200 MG Powder for Oral Solution) / 1 (polyethylene glycol 3350 855715 MG / potassium chloride 1000 MG / [...] Start: 02-11-2022 take 2 tablets by mo [facility] three times daily calcium (as calcium [...] 22, 2023 12:15pm [facility] hours as needed oxyBUTYnin [...] 2023 12:15pm take 1 capsule by mo [facility] every twenty-four hours Tamsulosin HCl 0.4 [...] Coronary arteriosclerosis; Translations: [Atherosclerotic heart disease of [place] coronary artery without angina pectoris] Onset: 11-14-2021 [...] 2 Episodic Other aftercare (1 source) Other manager terminal (current) drug therapy; Translations: [OTH ASSISTED CURRENT DRUG THERAPY] Onset: 2 Episodic Other aftercare (1 source) continuous churn buttermaker (current) use of anticoagulants; Translations: [SWEET DOUGH MIXER CURRNT USE ANTICOAGULANTS] Onset: 2 Episodic Other aftercare (1 source) long-term (current) use of aspirin; Translations: [ASSISTED CURRENT USE OF ASPIRIN] Onset: 2 Episodic [...] heavy lifting and knowing s/s for infection. [facility] 30 Daily Case Managemen t Update [...] Score: PT Recommendations: OT Recommendations: New Consults: [facility] CBCon 10-13-2023 Erythrocyte distribution width (RBC) [Ratio] 12.6 % Normal 11.5-15.0 [facility] Comment on above: Performed By: #### L [id number] #### [facility] ([facility]) [address] [place] [address] ERYTHROCYTE MEAN CORPUSCULAR HEMOGLOBIN CONCENTRATION (G/DL) BY AUTOMATED 33.0 g/dL Normal 32.0-35.0 [facility] Comment on above: Performed By: #### L [id number] #### [facility] ([facility]) [address] [place] [address] Hematocrit (Bld) [Volume fraction] 29.4 % Low 39.0-55.0 [facility] Comment on above: Performed By: #### L [id number] #### [facility] ([facility]) [address] [place] [address] Hemoglobin (Bld) [Mass/Vol] 9.7 g/dL Low 13.0-17.0 [facility] Comment on above: Performed By: #### L [id number] #### [facility] ([facility]) [address] [place] [address] MCH (RBC) [Entitic mass] 30.9 pg Normal 27.0-33.0 [facility] Comment on above: Performed By: #### L [id number] #### [facility] ([facility]AK[facility]) [address] [place] [address] MCV (RBC) [Entitic vol] 93.6 fL Normal 82.0-98.0 [facility] Comment on above: Performed By: #### L [id number] #### [facility] ([facility]) [address] [place] [address] PLATELETS (10*3/UL) IN BLOOD AUTOMATED COUNT 141 10*3/uL Low 150-400 [facility] Comment on above: Performed By: #### L [id number] #### [facility] ([facility]) [address] [place] [address] RBC (Bld) [#/Vol] 3.14 10*6/uL Low 4.20-5.70 [facility] Comment on above: Performed By: #### L [id number] #### [facility] ([facility]) [address] [place] [address] WBC (Bld) [#/Vol] 14.01 10*3/uL High 4.00-10.60 [facility] Comment on above: Performed By: #### L [id number] #### [facility] ([facility]) [address] [place] [address] COMPREHENSIVE METABOLIC PANE Santo 10-13-2023 Albumin [Mass/Vol] 3.4 g/dL Low 3.5-5.7 [facility] Comment on above: Performed By: #### L [id number] ####[facility] ([facility])[address] [place] [address] ALP [Catalytic activity/Vol] 89 U/L Normal 34-104 [facility] Comment on above: Performed By: #### L [id number] ####[facility] ([facility])[address] [place] [address] ALT [Catalytic activity/Vol] 52 U/L Normal 7-52 [facility] Comment on above: Performed By: #### L [id number] ####[facility] ([facility])[address] [place] [address] Anion gap [Moles/Vol] 12 mmol/L Normal 7-20 [facility] Comment on above: Performed By: #### L [id number] ####[facility] ([facility])[address] [place] [address] AST [Catalytic activity/Vol] 60 U/L High 13-39 [facility] Comment on above: Performed By: #### L [id number] ####[facility] ([facility])[address] [place] [address] Bilirubin [Mass/Vol] 0.8 mg/dL Normal 0.3-1.0 [facility] Comment on above: Performed By: #### L [id number] ####[facility] ([facility])[address] [place] [address] Calcium [Mass/Vol] 8.3 mg/dL Low 8.6-10.3 [facility] Comment on above: Performed By: #### L [id number] ####[facility] ([facility])[address] [place] [address] Chloride [Moles/Vol] 104 mmol/L Normal 98-107 [facility] Comment on above: Performed By: #### L [id number] ####[facility] ([facility])[address] [place] [address] CO2 [Moles/Vol] 22 mmol/L Normal 21-31 [facility] Comment on above: Performed By: #### L [id number] ####[facility] ([facility])[address] [place] [address] Creatinine [Mass/Vol] 0.74 mg/dL Normal 0.70-1.30 [facility] Comment on above: Performed By: #### L [id number] ####[facility] ([facility])[address] [place] [address] GLOMERULAR FILTRATION RATE ML/MIN/1.73 SQ M.PREDICTED 91.0 mL/min/1.73m*2 Normal >60.0 [facility] Comment on above: Result Comment: [facility]???s estimated glomerular filtration rate (eGFR) will no [...] of individuals. Performed By: #### L [id number] ####[facility] ([facility])[address] [place] [address] Glucose [Mass/Vol] 116 mg/dL High 70-100 [facility] Comment on above: Performed By: #### L [id number] ####[facility] ([facility])[address] [place] [address] Potassium [Moles/Vol] 4.4 mmol/L Normal 3.5-5.1 [facility] Comment on above: Performed By: #### L [id number] ####[facility] ([facility])[address] [place] [address] Protein [Mass/Vol] 5.9 g/dL Low 6.0-8.3 [facility] Comment on above: Performed By: #### L [id number] ####[facility] ([facility])[address] [place] [address] Sodium [Moles/Vol] 134 mmol/L Low 136-145 [facility] Comment on above: Performed By: #### L [id number] ####[facility] ([facility])[address] [place] [address] Urea nitrogen [Mass/Vol] 17 mg/dL Normal 7-25 [facility] Comment on above: Performed By: #### L [id number] ####[facility] ([facility])[address] [place] [address] UREA NITROGEN/CREATININE (MASS RATIO) IN SER/PLAS 23.0 Normal [facility] Comment on above: Performed By: #### L [id number] ####[facility] ([facility])[address] [place] [address] DSon 10-13-2023 DS Admission Admitted 10/12/2023 for [...] Your Medications These medications were sent to [facility]/pharmacy #[id number] [place] [address] acetaminophen 500 mg tablet aspirin 81 mg [...] is performed under the ED CLIA certificate #[id number]. ARTERIAL BLOOD GAS WITH CO-OXIMETRY - Abnormal [...] HCO3 POC (more content not included)... Normal [facility] MAGNESIUMon 10-13-2023 Magnesium [Mass/Vol] 1.5 mg/dL Low 1.9-2.7 [facility] Comment on above: Performed By: #### L [id number] ####[facility] ([facility])[address] [place] [address] PHOSPHORUSon 10-13-2023 Magnesium [Mass/Vol] 4.2 mg/dL Normal 2.5-5.0 [facility] Comment on above: Performed By: #### L [id number] ####[facility] ([facility])[address] [place] [address] PROTIME-INRon 10-13-2023 INR IN PPP BY COAGULATION ASSAY 1.17 High 0.90-1.10 [facility] Comment on above: Result Comment: ACCC P [...] CHEST 1995;[id number]. Performed By: #### L [id number] ####[facility] [employer])[address] [place] [address] PROTHROMBIN TIME (PT) IN PPP BY COAGULATION ASSAY 14.8 Seconds Normal 12.3-14.8 [facility] Comment on above: Performed By: #### L [id number] ####[facility] ([facility])[address] [place] [address] 30on 10-12-2023 30 The patient is Moder [...] these barriers include post-op monitoring . Normal [facility] 30 Daily Case Managemen t Update Multidisciplinary [...] appropriate for patient?: Yes New Consults: Normal [facility] APTTon 10-12-2023 ACTIVATED PARTIAL THROMBOPLASTIN TIME IN PPP BY COAGULATION ASSAY 32.1 Seconds Normal 25.0-35.0 [facility] Comment on above: 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: In PA CU Result Comment: Clin ical significance of the APTT is questionable in the presence of heparin. Performed By: #### L [id number] #### [facility] ([facility]) [address] [place] [address] ARTERIAL BLOOD GAS WITH CO-O XIMETRYon 10-12-2023 Base excess Calc (Bld) [Moles/Vol] -4.3000 mmol/L Low -2.0-3.0 [facility] Comment on above: 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: In PA CU Performed By: #### L [id number] #### [facility] [address] [place] [address] [place] CARBOXYHEMOGLOBIN/HEMO GLOBIN TOTAL % IN BLOOD 1.2 % Normal 0.0-3.0 [facility] Comment on above: 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: In PA CU Performed By: #### L [id number] #### [facility] [address] [place] [address] [facility] CO2 (Bld) [Partial pressure] 42 mm[Hg] Normal 35-48 [facility] Comment on above: 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: In PA CU Performed By: #### L [id number] #### [facility] [address] [place] [address] [facility] DEOXYGENATED HEMOGLOBIN IN BLOOD 0.3 % Low 1-5 [facility] Comment on above: 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: In PA CU Performed By: #### L [id number] #### [facility] [address] [place] [address] [facility] HCO3 (Bld) [Moles/Vol] 21.6 mmol/L Normal 21.0-28.0 [facility] Comment on above: 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: In PA CU Performed By: #### L [id number] #### [facility] [address] [place] [address] [facility] Hemoglobin (Bld) [Mass/Vol] 9.5 g/dL Low 11.7-17.4 [facility] Comment on above: 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: In PA CU Performed By: #### L [id number] #### [facility] [address] [place] [address] [place] LPM 4 Normal [facility] Comment on above: 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: In PA CU Performed By: #### L [id number] #### [facility] [address] [place] [address] [place] METHEMOGLOBIN/100 IN BLOOD 0.0 % Normal 0.0-1.5 [facility] Comment on above: 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: In PA CU Performed By: #### L [id number] #### [facility] [address] [place] [address] [place] Oxygen (Bld) [Partial pressure] 137 mm[Hg] High 83-100 [facility] Comment on above: 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: In PA CU Performed By: #### L [id number] #### [facility] [address] [place] [address] [facility] OXYGEN SATURATION (%) IN ARTERIAL BLOOD 99.7 % High 94.0-98.0 [facility] Comment on above: 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: In PA CU Performed By: #### L [id number] #### [facility] [address] [place] [address] [place] OXYGENATED HEMOGLOBIN IN BLOOD 98.4 % High 90.0-95.0 [facility] Comment on above: 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: In PA CU Performed By: #### L [id number] #### [facility] [address] [place] [address] [facility] pH (Bld) 7.32 [pH] Low 7.35-7.45 [facility] Comment on above: 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: In PA CU Performed By: #### L [id number] #### [facility] [address] [place] [address] [facility] SOURCE OF OXYGEN Nasal cannula Normal Unive [facility] Comment on above: 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: In PA CU Performed By: #### L [id number] #### [facility] [address] [place] [address] [facility] CBCon 10-12-2023 Erythrocyte distribution width (RBC) [Ratio] 12.5 % Normal 11.5-15.0 [facility] Comment on above: 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: In PA CU Performed By: #### L [id number] #### [facility] ([facility]) [address] [place] [address] ERYTHROCYTE MEAN CORPUSCULAR HEMOGLOBIN CONCENTRATION (G/DL) BY AUTOMATED 32.4 g/dL Normal 32.0-35.0 [facility] Comment on above: 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: In PA CU Performed By: #### L [id number] #### [facility] ([facility]) [address] [place] [address] Hematocrit (Bld) [Volume fraction] 28.4 % Low 39.0-55.0 [facility] Comment on above: 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: In PA CU Performed By: #### L [id number] #### [facility] ([facility]) [address] [place] [address] Hemoglobin (Bld) [Mass/Vol] 9.2 g/dL Low 13.0-17.0 [facility] Comment on above: 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: In PA CU Performed By: #### L [id number] #### [facility] ([facility]) [address] [place] [address] MCH (RBC) [Entitic mass] 30.6 pg Normal 27.0-33.0 [facility] Comment on above: 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: In PA CU Performed By: #### L [id number] #### [facility] ([facility]) [address] [place] [address] MCV (RBC) [Entitic vol] 94.4 fL Normal 82.0-98.0 [facility] Comment on above: 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: In PA CU Performed By: #### L [id number] #### [facility] ([facility]) [address] [place] [address] PLATELETS (10*3/UL) IN BLOOD AUTOMATED COUNT 130 10*3/uL Low 150-400 [facility] Comment on above: 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: In PA CU Performed By: #### L [id number] #### [facility] ([facility]) [address] [place] [address] RBC (Bld) [#/Vol] 3.01 10*6/uL Low 4.20-5.70 [facility] Comment on above: 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: In PA CU Performed By: #### L [id number] #### [facility] ([facility]) [address] [place] [address] WBC (Bld) [#/Vol] 10.46 10*3/uL Normal 4.00-10.60 [facility] Comment on above: 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: In PA CU Performed By: #### L [id number] #### [facility] ([facility]) [address] [place] [address] COMPREHENSIVE METABOLIC PANE Santo 10-12-2023 Albumin [Mass/Vol] 3.3 g/dL Low 3.5-5.7 [facility] Comment on above: 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: In PA CU Performed By: #### L [id number] ####[facility] ([facility])[address] [place] [address] ALP [Catalytic activity/Vol] 84 U/L Normal 34-104 [facility] Comment on above: 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: In PA CU Performed By: #### L [id number] ####[facility] ([facility])[address] [place] [address] ALT [Catalytic activity/Vol] 53 U/L High 7-52 [facility] Comment on above: 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: In PA CU Performed By: #### L [id number] ####[facility] ([facility])[address] [place] [address] Anion gap [Moles/Vol] 11 mmol/L Normal 7-20 [facility] Comment on above: 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: In PA CU Performed By: #### L [id number] ####[facility] ([facility])[address] [place] [address] AST [Catalytic activity/Vol] 63 U/L High 13-39 [facility] Comment on above: 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: In PA CU Performed By: #### L [id number] ####[facility] ([facility])[address] [place] [address] Bilirubin [Mass/Vol] 0.9 mg/dL Normal 0.3-1.0 [facility] Comment on above: 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: In PA CU Performed By: #### L [id number] ####[facility] ([facility])[address] [place] [address] Calcium [Mass/Vol] 7.9 mg/dL Low 8.6-10.3 [facility] Comment on above: 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: In PA CU Performed By: #### L [id number] ####[facility] ([facility])[address] [place] [address] Chloride [Moles/Vol] 107 mmol/L Normal 98-107 [facility] Comment on above: 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: In PA CU Performed By: #### L [id number] ####[facility] ([facility])[address] [place] [address] CO2 [Moles/Vol] 22 mmol/L Normal 21-31 [facility] Comment on above: 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: In PA CU Performed By: #### L [id number] ####[facility] ([facility])[address] [place] [address] Creatinine [Mass/Vol] 0.73 mg/dL Normal 0.70-1.30 [facility] Comment on above: 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: In PA CU Performed By: #### L [id number] ####[facility] ([facility])[address] [place] [address] GLOMERULAR FILTRATION RATE ML/MIN/1.73 SQ M.PREDICTED 91.4 mL/min/1.73m*2 Normal >60.0 [facility] Comment on above: 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: In PA CU Result Comment: [facility]???s estimated glomerular filtration rate (eGFR) will no [...] of individuals. Performed By: #### L [id number] ####[facility] ([facility])[address] [place] [address] Glucose [Mass/Vol] 160 mg/dL High 70-100 [facility] Comment on above: 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: In PA CU Performed By: #### L [id number] ####[facility] ([facility])[address] [place] [address] Potassium [Moles/Vol] 4.4 mmol/L Normal 3.5-5.1 [facility] Comment on above: 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: In PA CU Performed By: #### L [id number] ####[facility] ([facility])[address] [place] [address] Protein [Mass/Vol] 5.7 g/dL Low 6.0-8.3 [facility] Comment on above: 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: In PA CU Performed By: #### L [id number] ####[facility] ([facility])[address] [place] [address] Sodium [Moles/Vol] 136 mmol/L Normal 136-145 [facility] Comment on above: 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: In PA CU Performed By: #### L [id number] ####[facility] ([facility])[address] [place] [address] Urea nitrogen [Mass/Vol] 18 mg/dL Normal 7-25 [facility] Comment on above: 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: In PA CU Performed By: #### L [id number] ####[facility] ([facility])[address] [place] [address] UREA NITROGEN/CREATININE (MASS RATIO) IN SER/PLAS 24.7 Normal [facility] Comment on above: 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: In PA CU Performed By: #### L [id number] ####[facility] ([facility])[address] [place] [address] HISTOLOGY - TISSUE EXAMon LAB AP CASE REPORT Normal [facility] Comment on above: 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: 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] Result Comment: Surg ical Pathology Case: [id number] Authorizing Provider: Amber Bryant MD Collected: 10/12/2023 1204 Ordering Location: [facility] Main Operating Room Received: 10/12/2023 1233 Pathologist: Luana Rivas MD Intraop: Luana Rivas MD Specimens: A) - Common Bile Duct, CYSTIC DUCT MARGIN B) - Gallbladder, GALLBLADDER AND PORTION OF SEGMENT 4/5 Performed By: #### L [id number] ####[facility] ([facility])[address] [place] [address] LAB AP INTRAOPERATIVE CONSULTATION Normal [facility] Comment on above: 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: 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 C ommon Bile Duct. Resulted 12:53 PM 10/12/23 Gallbladder, cystic duct margin, biopsy: - No malignancy identified Intraoperative Consultation by: Luana Rivas MD B. Gallbladder. Resulted 2:58 pm 10/12/23 Gallbladder, cholecystectomy: - No malignancy identified Intraoperative Consultation by: Luana Rivas MD Performed By: #### L [id number] ####[facility] ([facility])[address] [place] [address] HPon 10-12-2023 HP H&P reviewed. The pa tient was examined and there are no changes to the H&P. 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] Post-op Diagnosis * 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] Procedures Robot-Assisted Cholecystectomy with 26876 - [place] LAPAROSCOPY SURG CHOLECYSTECTOMY Intraoperative Ultrasound and 16460 - [place] UNLISTED LAPAROSCOPIC PROCEDURE LIVER PArtial Liver Resection of segement 4/5 39956 - [place] UNLISTED LAPAROSCOPIC PROCEDURE LIVER Surgeons Primary: Amber [...] Amber Bryant MD 10/12/23 1204 Yes STAT [id number] Description: CYSTIC DUCT MARGIN B Gallbladder Tissue HISTOLOGY - TISSUE EXAM Amber Bryant MD 10/12/23 1403 Yes STAT [id number] Staff: Umbrella Frame Maker: Woody Massey, RN; Lukas Chacon, RN; Felicity [...] in the left lower quadrant as an acquisitions assistant port. Following this the 5 mm trocar [...] The ultrasound was brought in through the acquisitions assistant port. Intraoperative ultrasonography of the gallbladder was undertaken examining the entire gallbladder in both its longitudinal and transverse (more content not included)... Normal [facility] PHOSPHORUSon 10-12-2023 Magnesium [Mass/Vol] 3.5 mg/dL Normal 2.5-5.0 [facility] Comment on above: 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: In PA CU Performed By: #### L [id number] #### [facility] ([facility]) [address] [place] [address] POCT GLUCOSE METER UNSOLICIT ED RESULTSon 10-12-2023 Glucose [Mass/Vol] 115 mg/dL High 70-105 [facility] Comment on above: 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: Waive d Testing in the ED is performed under the ED CLIA certificate #[id number]. Result Comment: spin zon Performed By: #### L [id number] ####[facility] ([facility])[address] [address] POCT PERFUSION PANEL UNSOLIC ITED RESULTSon 10-12-2023 CO2 [Moles/Vol] 21.0 mmol/L Normal 21.0-29.0 [facility] Comment on above: Performed By: #### L [id number] ####[facility] ([facility])[address] [address] Glucose [Mass/Vol] 132 mg/dL High 70-105 [facility] Comment on above: Performed By: #### L [id number] ####[facility] ([facility])[address] [address] HCO3 (Bld) [Moles/Vol] 19.3 mmol/L Low 23.0-28.0 [facility] Comment on above: Performed By: #### L [id number] ####[facility] ([facility])[address] [address] Hematocrit (Bld) [Volume fraction] 24 % Low 38-51 [facility] Comment on above: Performed By: #### L [id number] ####[facility] ([facility])[address] [address] Hemoglobin (Bld) [Mass/Vol] 8.2 g/dL Low 12.0-17.0 [facility] Comment on above: Performed By: #### L [id number] ####[facility] ([facility])[address] [place] [address] POCT BASE EXCESS -7.0 mmol/L Low -2.0-3.0 [facility] Comment on above: Performed By: #### L [id number] ####[facility] ([facility])[address] [address] POCT IONIZED CALCIUM 1.11 mmol/L Low 1.12-1.32 [facility] Comment on above: Performed By: #### L [id number] ####[facility] ([facility])[address] [place] [address] POCT PCO2 43.3 mmHg Normal 41.0-51.0 [facility] Comment on above: Performed By: #### L [id number] ####[facility] ([facility])[address] [place] [address] POCT PH 7.26 Low 7.31-7.41 [facility] Comment on above: Performed By: #### L [id number] ####[facility] ([facility])[address] [place] [address] POCT PO2 224 mmHg High 80-105 [facility] Comment on above: Performed By: #### L [id number] ####[facility] ([facility])[address] [place] [address] POCT SO2 100 % High 95-98 [facility] Comment on above: Performed By: #### L [id number] ####[facility] ([facility])[address] [place] [address] Potassium [Moles/Vol] 4.0 mmol/L Normal 3.5-4.9 [facility] Comment on above: Performed By: #### L [id number] ####[facility] ([facility])[address] [place] [address] Sodium [Moles/Vol] 140 mmol/L Normal 138.0-146 . 0 [facility] Comment on above: Performed By: #### L [id number] ####[facility] ([facility])[address] [place] [address] CO2 [Moles/Vol] 21.0 mmol/L Normal 21.0-29.0 [facility] Comment on above: Performed By: #### L [id number] ####[facility] ([facility])[address] [place] [address] Glucose [Mass/Vol] 146 mg/dL High 70-105 [facility] Comment on above: Performed By: #### L [id number] ####[facility] ([facility])[address] [place] [address] HCO3 (Bld) [Moles/Vol] 19.6 mmol/L Low 23.0-28.0 [facility] Comment on above: Performed By: #### L [id number] ####[facility] ([facility])[address] [place] [address] Hematocrit (Bld) [Volume fraction] 29 % Low 38-51 [facility] Comment on above: Performed By: #### L [id number] ####[facility] ([facility])[address] [place] [address] Hemoglobin (Bld) [Mass/Vol] 9.9 g/dL Low 12.0-17.0 [facility] Comment on above: Performed By: #### L [id number] ####[facility] ([facility])[address] [place] [address] POCT BASE EXCESS -5.0 mmol/L Low -2.0-3.0 [facility] Comment on above: Performed By: #### L [id number] ####[facility] ([facility])[address] [place] [address] POCT IONIZED CALCIUM 1.12 mmol/L Normal 1.12-1.32 [facility] Comment on above: Performed By: #### L [id number] ####[facility] ([facility])[address] [place] [address] POCT PCO2 33.9 mmHg Low 41.0-51.0 [facility] Comment on above: Performed By: #### L [id number] ####[facility] ([facility])[address] [place] [address] POCT PH 7.37 Normal 7.31-7.41 [facility] Comment on above: Performed By: #### L [id number] ####[facility] ([facility])[address] [place] [address] POCT PO2 230 mmHg High 80-105 [facility] Comment on above: Performed By: #### L [id number] ####[facility] ([facility])[address] [place] [address] POCT SO2 100 % High 95-98 [facility] Comment on above: Performed By: #### L [id number] ####[facility] ([facility])[address] [place] [address] Potassium [Moles/Vol] 4.2 mmol/L Normal 3.5-4.9 [facility] Comment on above: Performed By: #### L [id number] ####[facility] ([facility])[address] [place] [address] Sodium [Moles/Vol] 136 mmol/L Low 138.0-146 . 0 [facility] Comment on above: Performed By: #### L [id number] ####[facility] ([facility])[address] [place] [address] CO2 [Moles/Vol] 25.0 mmol/L Normal 21.0-29.0 [facility] Comment on above: Performed By: #### L [id number] ####[facility] ([facility])[address] [place] [address] Glucose [Mass/Vol] 162 mg/dL High 70-105 [facility] Comment on above: Performed By: #### L [id number] ####[facility] ([facility])[address] [place] [address] HCO3 (Bld) [Moles/Vol] 23.4 mmol/L Normal 23.0-28.0 [facility] Comment on above: Performed By: #### L [id number] ####[facility] ([facility])[address] [place] [address] Hematocrit (Bld) [Volume fraction] 32 % Low 38-51 [facility] Comment on above: Performed By: #### L [id number] ####[facility] ([facility])[address] [place] [address] Hemoglobin (Bld) [Mass/Vol] 10.9 g/dL Low 12.0-17.0 [facility] Comment on above: Performed By: #### L [id number] ####[facility] ([facility])[address] [address] POCT BASE EXCESS -2.0 mmol/L Normal -2.0-3.0 [facility] Comment on above: Performed By: #### L [id number] ####[facility] ([facility])[address] [address] POCT IONIZED CALCIUM 1.20 mmol/L Normal 1.12-1.32 [facility] Comment on above: Performed By: #### L [id number] ####[facility] ([facility])[address] [address] POCT PCO2 43.6 mmHg Normal 41.0-51.0 [facility] Comment on above: Performed By: #### L [id number] ####[facility] ([facility])[address] [address] POCT PH 7.34 Normal 7.31-7.41 [facility] Comment on above: Performed By: #### L [id number] ####[facility] ([facility])[address] [address] POCT PO2 225 mmHg High 80-105 [facility] Comment on above: Performed By: #### L [id number] ####[facility] ([facility])[address] [address] POCT SO2 100 % High 95-98 [facility] Comment on above: Performed By: #### L [id number] ####[facility] ([facility])[address] [address] Potassium [Moles/Vol] 4.4 mmol/L Normal 3.5-4.9 [facility] Comment on above: Performed By: #### L [id number] ####[facility] ([facility])[address] [address] Sodium [Moles/Vol] 133 mmol/L Low 138.0-146 . 0 [facility] Comment on above: Performed By: #### L [id number] ####[facility] ([facility])[address] [place] [address] PROTIME-INRon 10-12-2023 INR IN PPP BY COAGULATION ASSAY 1.19 High 0.90-1.10 [facility] Comment on above: 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: [...] CHEST 1995;108:[id number]-246S. Performed By: #### L [id number] ####[facility])[address] [place] [address] PROTHROMBIN TIME (PT) IN PPP BY COAGULATION ASSAY 15.0 Seconds High 12.3-14.8 [facility] Comment on above: 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: In PA CU Performed By: #### L [id number] ####[facility] ([facility])[address] [place] [address] HPon 10-06-2023 HP SURGERY FOLLOWUP NOT E [...] ???F), temperature so (more content not included)... [facility] Office Visiton 10-06-2023 Follow-up visit [id number] Clarice Baker [address] J 1940 M Date Provider Department Center 10/06/2023 [id number] BRYANT DCC ONC [facility] Family History Problem Relation Age of Onset Heart disease Mother No Known Problems Father No Known Problems Sister Family Status - Relation Status Age at Mother Father Sister Alive Level of Service:47111 [place] OFFICE/OUTPATIENT ESTABLISHED LOW MDM 20 MIN Reason for Visit and Comments: Follow-up [662414] - Here for F/U of his gallbladder mass. Normal [facility] ANTI C3 DATon 09-17-2023 ANTI C3 ASHLEY Negative Normal [facility] Comment on above: 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: 2 uni ts Performed By: #### L [id number] ####[facility] BLOOD BANK, ANTI IGG DATon 09-17-2023 ANTI IGG ASHLEY Negative Normal [facility] Comment on above: 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: 2 uni ts Performed By: #### L [id number] #### [facility] ([facility]) [address] [place] [address] ANTIBODY IDENTIFICATIONon ANTIBODY IDENTIFICATION [facility]SA Normal [facility] Comment on above: 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: 2 uni ts Performed By: #### L [id number] #### [facility] ([facility]) [address] [facility] [place] [address] Labon 09-17-2023 Lab [id number] Clarice Baker minoo Melgoza 1940 M Date Provider Department Center 09/17/2023 2243-[facility] DCC LAB RESOURCE DCC DRAW [facility] Family History Problem Relation Age of Onset Heart disease Mother No Known Problems Father No Known Problems Sister Family Status - Relation Status Age at Mother Father Sister Alive Normal [facility] TYPE AND SCREENon 09-17-2023 AB SCREEN Positive Normal [facility] Comment on above: 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: 2 uni ts Performed By: #### L [id number] #### [facility] ([facility]) [address] [place] [address] ABO group Nom (Bld) A Normal [facility] Comment on above: 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: 2 uni ts Performed By: #### L [id number] #### [facility] ([facility]) [address] [place] [address] RH TYPE IN BLOOD Positive Normal [facility] Comment on above: 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: 2 uni ts Performed By: #### L [id number] #### [facility] ([facility]) [address] [place] [address] Abstracton 09-14-2023 Abstract [id number] Clarice Baker minoo J 1940 M Date Provider Department Center 09/14/2023 [id number] ZUNIGA ONC [facility] Family History Problem Relation Age of Onset Heart disease Mother No Known Problems Father No Known Problems Sister Family Status - Relation Status Age at Mother Father Sister Alive Normal [facility] Abstracton 09-13-2023 Abstract [id number] Clarice Baker minoo J 1940 M Date Provider Department Center 09/13/2023 [id number] ZUNIGA ONC [facility] Family History Problem Relation Age of Onset Heart disease Mother No Known Problems Father No Known Problems Sister Family Status - Relation Status Age at Mother Father Sister Alive Normal [facility] ECH echo limitedon [facility] echo limited [facility] [address] Echocardiogram Signed Patient: Chico Baker MR#: [id number] : 1940 Acct:[id number] Age/Sex: 83 / M ADM Date: 08/31/23 Loc: Room: Type: [facility] Attending Dr: Sheri Christiansen MD Ordering Provider: Sheri Christiansen MD Date of Service: 08/31/23 [facility] echo limited: I35.0 - Nonrheumatic aortic (valve) [...] Judah Harrington MD 08/31/23 1723 Normal [facility] FPG ECG *CARDIOLOGY ONLY*on 08-19-2023 FPG ECG *CARDIOLOGY ONLY* [facility] [place] [address] Electrocardiograph Report Signed Patient: Chico Baker MR#: [id number] : 1940 Acct:[id number] Age/Sex: 83 / M ADM Date: 08/19/23 [facility]: Type: [facility] Attending Dr: Sheri Christiansen MD [...] rhythm Normal ECG Confirmed by Sheri Christiansen ([id number]) on 08/20/2023 12:14:54 AM Referred By: Electronically Signed By:Sheri Christiansen Transcribed By: MUS Signed By Sheri Christiansen MD 4 0014 Normal [facility] 29on 08-18-2023 29 Addended by: NICOLE MONTES on: 08/19/2023 11:25 AM Modules accepted: Orders Normal [facility] APTTon 08-18-2023 ACTIVATED PARTIAL THROMBOPLASTIN TIME IN PPP BY COAGULATION ASSAY 32.1 Seconds Normal 25.0-35.0 [facility] Comment on above: Result Comment: Clin ical significance of the APTT is questionable in the presence of heparin. Performed By: #### L [id number] #### [facility] ([facility]) [address] [facility] [place] [address] CANCER ANTIGEN 19-9on 2023 CANCER AG 19-9 (U/ML) IN SER/PLAS <2 Normal <=35 [facility] Comment on above: Result Comment: INTE RPRETIVE [...] or absence of malignant disease. Performed By: [facility] [address] [place] [address] Actuary: Mario Mckeon MD, PhD CLIA Number: [id number] Performed By: #### L [id number] #### [facility] ([facility]) [address] [place] [address] CBCon 08-18-2023 Erythrocyte distribution width (RBC) [Ratio] 12.6 % Normal 11.5-15.0 [facility] Comment on above: Performed By: #### L [id number] #### [facility] ([facility]) [address] [place] [address] ERYTHROCYTE MEAN CORPUSCULAR HEMOGLOBIN CONCENTRATION (G/DL) BY AUTOMATED 32.3 g/dL Normal 32.0-35.0 [facility] Comment on above: Performed By: #### L [id number] #### [facility] ([facility]) [address] [place] [address] Hematocrit (Bld) [Volume fraction] 37.8 % Low 39.0-55.0 [facility] Comment on above: Performed By: #### L [id number] #### [facility] ([facility]) [address] [place] [address] Hemoglobin (Bld) [Mass/Vol] 12.2 g/dL Low 13.0-17.0 [facility] Comment on above: Performed By: #### L [id number] #### [facility] ([facility]) [address] [place] [address] MCH (RBC) [Entitic mass] 30.7 pg Normal 27.0-33.0 [facility] Comment on above: Performed By: #### L [id number] #### [facility] ([facility]) [address] [place] [address] MCV (RBC) [Entitic vol] 95.0 fL Normal 82.0-98.0 [facility] Comment on above: Performed By: #### L [id number] #### [facility] ([facility]) [address] [place] [address] PLATELETS (10*3/UL) IN BLOOD AUTOMATED COUNT 206 10*3/uL Normal 150-400 [facility] Comment on above: Performed By: #### L [id number] #### [facility] ([facility]) [address] [place] [address] RBC (Bld) [#/Vol] 3.98 10*6/uL Low 4.20-5.70 [facility] Comment on above: Performed By: #### L [id number] #### [facility] ([facility]) [address] [place] [address] WBC (Bld) [#/Vol] 10.15 10*3/uL Normal 4.00-10.60 [facility] Comment on above: Performed By: #### L [id number] #### [facility] ([facility]) [address] [place] [address] COMPREHENSIVE METABOLIC PANE Santo 08-18-2023 Albumin [Mass/Vol] 4.1 g/dL Normal 3.5-5.7 [facility] Comment on above: Performed By: #### L [id number] #### [facility] ([facility]) [address] [place] [address] ALP [Catalytic activity/Vol] 122 U/L High 34-104 [facility] Comment on above: Performed By: #### L [id number] #### [facility] ([facility]) [address] [place] [address] ALT [Catalytic activity/Vol] 8 U/L Normal 7-52 [facility] Comment on above: Performed By: #### L [id number] #### [facility] ([facility]) [address] [place] [address] Anion gap [Moles/Vol] 12 mmol/L Normal 7-20 [facility] Comment on above: Performed By: #### L [id number] #### [facility] ([facility]) [address] [place] [address] AST [Catalytic activity/Vol] 12 U/L Low 13-39 [facility] Comment on above: Performed By: #### L [id number] #### [facility] ([facility]) [address] [place] [address] Bilirubin [Mass/Vol] 0.5 mg/dL Normal 0.3-1.0 [facility] Comment on above: Performed By: #### L [id number] #### [facility] ([facility]) [address] [place] [address] Calcium [Mass/Vol] 8.9 mg/dL Normal 8.6-10.3 [facility] Comment on above: Performed By: #### L [id number] #### [facility] ([facility]) [address] [place] [address] Chloride [Moles/Vol] 102 mmol/L Normal 98-107 [facility] Comment on above: Performed By: #### L [id number] #### [facility] ([facility]) [address] [place] [address] CO2 [Moles/Vol] 26 mmol/L Normal 21-31 [facility] Comment on above: Performed By: #### L [id number] #### [facility] ([facility]) [address] [place] [address] Creatinine [Mass/Vol] 1.02 mg/dL Normal 0.70-1.30 [facility] Comment on above: Performed By: #### L [id number] #### [facility] (BEAKER) [address] [place] [address] GLOMERULAR FILTRATION RATE ML/MIN/1.73 SQ M.PREDICTED 73.8 mL/min/1.73m*2 Normal >60.0 [facility] Comment on above: Result Comment: [facility]???s estimated glomerular filtration rate (eGFR) will no [...] individuals. Performed By: #### L [id number] #### [facility] ([facility]) [address] [place] [address] Glucose [Mass/Vol] 100 mg/dL Normal 70-100 [facility] Comment on above: Performed By: #### L [id number] #### [facility] ([facility]) [address] [place] [address] Potassium [Moles/Vol] 4.7 mmol/L Normal 3.5-5.1 [facility] Comment on above: Performed By: #### L [id number] #### [facility] ([facility]) [address] [place] [address] Protein [Mass/Vol] 7.8 g/dL Normal 6.0-8.3 [facility] Comment on above: Performed By: #### L [id number] #### [facility] ([facility]) [address] [place] [address] Sodium [Moles/Vol] 135 mmol/L Low 136-145 [facility] Comment on above: Performed By: #### L [id number] #### [facility] ([facility]) [address] [place] [address] Urea nitrogen [Mass/Vol] 24 mg/dL Normal 7-25 [facility] Comment on above: Performed By: #### L [id number] #### [facility] ([facility]) [address] [place] [address] UREA NITROGEN/CREATININE (MASS RATIO) IN SER/PLAS 23.5 Normal [facility] Comment on above: Performed By: #### L [id number] #### [facility] ([facility]) [address] [place] [address] Labon 08-18-[id number] 1940 M Date Provider Department [place] 08/18/2023 2242-[facility] RESOURCE [facility] Comprehensiv Family History Problem Relation Age of Onset Heart disease Mother No Known Problems Father No Known Problems Sister Family Status - Relation Status Age at Mother Father Sister Alive Normal [facility] Office Visiton 08-18-2023 Follow-up visit [id number] Clarice [address] 1940 M Date Provider Department [place] 08/18/2023 [id number]-SOPEOGMYAMBER BRYANT ONC DCC Family History Problem Relation Age of Onset Heart disease Mother No Known Problems Father No Known Problems Sister Family Status - Relation Status Age at Mother Father Sister Alive Level of Service:67793 [place] OFFICE/OUTPATIENT ESTABLISHED HIGH MDM 40 MIN Reason for Visit and Comments: Consult [484] - 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 Review MRCP that was done yesterday. Normal [facility] PROTIME-INRon 08-18-2023 INR IN PPP BY COAGULATION ASSAY 1.03 Normal 0.90-1.10 [facility] Comment on above: Result Comment: ACCC P [...] 1995;108:231S-246S. Performed By: #### L [id number] #### [facility] ([facility]) [address] [place] [address] PROTHROMBIN TIME (PT) IN PPP BY COAGULATION ASSAY 13.5 Seconds Normal 12.3-14.8 [facility] Comment on above: Performed By: #### L [id number] #### [facility] ([facility]) [address] [place] [address] TYPE AND SCREENon 08-18-2023 AB SCREEN Negative Normal [facility] Comment on above: Performed By: #### L [id number] #### [facility] ([facility]) [address] [place] [address] ABO group Nom (Bld) A Normal [facility] Comment on above: Performed By: #### L [id number] #### [facility] ([facility]) [address] [place] [address] RH TYPE IN BLOOD Positive Normal [facility] Comment on above: Performed By: #### L [id number] #### [facility] ([facility]) [address] [place] [address] MR ABDOMEN WO CONTRAST MRCPo n 08-17-2023 [...] Rodriguez MD. Not Vldtd Invalid Interpretation Code [facility] Comment on above: 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: Gallb ladder mass. 08-13-2023 29 Addended by: NICOLE MONTES on: 08/16/2023 11:34 AM Modules accepted: Orders Normal [facility] 29 Addended by: MARIA EUGENIA BERRY on: 08/13/2023 11:35 AM Modules accepted: Orders Normal [facility] Office Visiton 08-13-2023 Follow-up visit [id number] Clarice Baker minoo Melgoza 1940 M Date Provider Department Center 08/13/2023 465-MARIA EUGENIA BERRY ONC DCC Family History Problem Relation Age of Onset Heart disease Mother No Known Problems Father No Known Problems Sister Family Status - Relation Status Age at Mother Father Sister Alive Level of Service:NOCHG 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 and Comments: New Patient [632] - LEASE EXAMINER - Gallbladder mas Normal [facility] Orders Onlyon 08-04-2023 Orders Only [id number] Clarice Baker minoo Melgoza 1940 M Date Provider Department Center 08/04/2023 [id number], HISTORICAL DCC ONC DCC No family history on file Normal [facility] CT angio abdomen pelvison CT angio abdomen pelvis [facility] [place] [address] [place] [address] CT Scan Report Signed Patient: Chico Baker MR#: [id number] 284 : 1940 Acct:[id number] Age/Sex: 83 / M ADM Date: 06/16/23 Loc: CT Room: Type: [facility] Attending Dr: Raul Quan MD Copies to: [...] aortic 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 [place] aneurysmal sac is grossly unchanged in size [...] Payan Jr., D.OSilvestre06/16/2023 1:59 PM Dictation Location: [place] [address] Transcribed By: [facility] 06/16/23 1354 Dictated By: Woody Payan Jr, DO 06/16/23 1351 Signed By: 06/16/23 1359 Normal [facility] ISTAT XRay CREon 06-16-2023 ISTAT GFR > 60.0 Normal [facility] Comment on above: Result Comment: PERF ORMED BY: [place] [address] PATHOLOGIST [employer]NALOG CIRCUIT DESIGNER ZENA CASTELLON M.D. Performed By: #### I SCRE #### [facility] [address] [place] [address] No Panel InformationOrdered By: Raul Quan on 06-16-2023 Bedside Estimated GFR (eGFR) > 60.0 [facility] Whole blood creatinine measu rementOrdered By: Raul Quan on 06-16-2023 Creatinine [Mass/Vol] 0.9 mg/dL Normal 0.6-1.3 [facility] Comment on above: ER/ESD physician is notified/shown all ISTAT results.Critical values may be confirmed by laboratory testing ifdeemed necessary by ER attending doctor. Result Comment: ER/E SD physician is notified/shown all ISTAT results. Critical values may be confirmed by laboratory testing if deemed necessary by ER attending doctor. Performed By: #### I SCRE #### [facility] [address] [place] [address] Calculus Analysison 05-12-19 24 Calcium oxalate dihydrate Infrared spectroscopy (Stone) [Mass fraction] 20 % Invalid Interpretation Code [facility] Comment on above: Performed By: #### 1 [id number] ####[facility] [address] [place] [address] Calcium oxalate monohydrate (Stone) [Mass fraction] 80 % Invalid Interpretation Code [facility] Comment on above: Performed By: #### 1 [id number] ####[facility] [address] [place] [address] Color (Stone) Brown Invalid Interpretation Code [facility] Comment on above: Performed By: #### 1 [id number] ####[facility] [address] [place] [address] Composition Comment Invalid Interpretation Code [facility] Comment on above: Result Comment: Perc entage (Represents the % composition) Performed By: #### 1 [id number] ####[facility] [address] [place] [address] Disclaimer: Comment Invalid Interpretation Code [facility] Comment on above: Result Comment: This test was developed and its performance characteristics determined by [facility]. It has not been cleared or approved by the Food and Drug Administration. Performed at: [facility] [address] [id number] Emanuel Silverman Performed By: #### 1 [id number] ####[facility] [address] [place] [address] Laboratory comment Daniel (Report) Comment Invalid Interpretation Code [facility] Comment on above: Result Comment: Mina aguilar questions regarding Calculi Analysis contact [facility] at: [phone]. Performed By: #### 1 [id number] ####[address] [address] Please Note: Comment Invalid Interpretation Code [facility] Comment on above: Result Comment: Calc melissa report will follow via computer, mail or clinic receptionist delivery. Performed By: #### 1 [id number] ####[place] [address] [place] [address] Size (Stone) [Entitic vol] 2x3 Invalid Interpretation Code [facility] Comment on above: Result Comment: Mult iple pieces received. Dimensions of the largest piece reported. Performed By: #### 1 [id number] ####[address] [address] Specimen source subject Nom Comment Invalid Interpretation Code [facility] Comment on above: Result Comment: Not provided Performed By: #### 1 [id number] ####[place] [address] [place] [address] Stone Photo Comment Invalid Interpretation Code [facility] Comment on above: Result Comment: Phot ograph will follow under a separate cover Performed By: #### 1 [id number] ####[place] [address] [place] [address] Weight (Stone) 12 mg Invalid Interpretation Code [facility] Comment on above: Performed By: #### 1 [id number] ####[facility] [address] [place] [address] Consent for Procedure/Surger yon 05-05-2023 Consent for Procedure/Surgery [id number]#1.00TIFF Normal [facility] RAD - MISCon 05-05-2023 RAD - MISC [id number]#1.00TIFF Normal [facility] Ambulatory Visit Summaryon 0 05-04-2023 Ambulatory [...] Contact prescribing physician if questions or concerns [facility] Prescription (#####) aspirin (aspirin 81 mg oral [...] Ivelisse Hassan MD Where: [facility] Carlos Faulkner [facility] Patient Educationon 05-04-19 24 Patient Education [...] ? 8 oz (237 mL) of milk, devzbmh-sddkbfgvyotn-yatrt milk, and calcium-fortifiedfruit juice. Calcium-fortified means that [...] Spinach (cooked), rhubarb, beets, sweet potatoes, and [place] chard. ? Peanuts. ? Potato chips, [place] fries, and baked potatoes with skin on. ? Nuts and nut products. ? Chocolate. ? If you regularly take a diuretic medicine, make sure to eat at least 1 or 2 servings of fruits or vegetables that are high in potassium each day. These include: ? Avocado. ? Banana. ? [place], prune, carrot, or tomato juice. ? Baked [...] fish oil, or vitamin B6. ? Take inxc-aqp-uqwbdqi and prescription medicines only as told by your health care provider. These include supplements. What foods sh (more content not included)... Normal [facility] RAD - MISCon 05-04-2023 [facility] [id number]#1.00TIFF [facility] Urology Office/Clinic Noteon 05-04-2023 Urology Office/Clinic [...] lower urinary tract symptoms) hx TURP by [facility] 2019, prostate small on 05/11/22 CT [...] All questions/concern (more content not included)... Normal [facility] Comment on above: Result Comment: Elec tronically Signed By: Mo LEIJA, Ivelisse Schreiber\.br\Date and Time Signed: 05/04/23 12:02 EST\.br\Electronically Co-Signed By: Eleonora Belcher\.br\Date and Time Co-Signed: 05/04/23 11:47 EST Operative Reporton Operative Report [id number]#1.00TIFF Normal [facility] Physician Orderon 04-29-2023 Physician Order [id number]#1.00TIFF Normal [facility] RAD - MISCon 04-28-2023 RAD - MISC [id number]#1.00TIFF [facility] Consultation Noteon 04-23-19 Consultation Note [id number]#1.00TIFF [facility] Formson 04-23-2023 Forms [id number]#1.00TIFF [facility] Consent for Procedure/Surger yon 04-21-2023 Consent for Procedure/Surgery [id number]#1.00TIFF [facility] Lab Reportson 04-21-2023 Lab Reports [id number]#1.00TIFF Normal [facility] Lab Reports [id number]#1.00TIFF [facility] Activated partial thrombopla stin time (aPTT) in platelet poor plasma by coagulation aon 04-20-2023 aPTT Coag (PPP) [Time] 32.6 s 22.3-36.2 [facility] Basophils Auto (Bld) [#/Vol] on 04-20-2023 Basophils (Bld) [#/Vol] 0.1 10 3/uL 0.0-0.1 [facility] Basophils/100 WBC Auto (Bld) on 04-20-2023 Basophils/100 WBC (Bld) 0.5 % 0.2-2.0 [facility] Eosinophils/100 WBC Auto (Bl d)on 04-20-2023 Eosinophils/100 WBC (Bld) 1.2 % 0.9-7.0 [facility] Erythrocyte distribution wid th Auto (RBC) [Ratio]on 04-20-2023 Erythrocyte distribution width (RBC) [Ratio] 12.4 % 11.0-15.0 [facility] Estimated glomerular filtrat ion rate (GFR) non- Americanon 04-20-2023 GFR/1.73 sq M.predicted among non-blacks MDRD (S/P/Bld) [Vol rate/Area] mL/min/{1.73_m2} >=60 [facility] Formson 04-20-2023 Forms [id number]#1.00TIFF Normal [facility] Hematocrit Auto (Bld) [Volum e fraction]on 04-20-2023 Hematocrit (Bld) [Volume fraction] 36.7 % 42.0-54.0 [facility] Hemoglobin [Mass/volume] in Bloodon 04-20-2023 Hemoglobin (Bld) [Mass/Vol] 11.5 g/dL 14.0-18.0 [facility] INR in Platelet poor plasma by Coagulation assayon 04-20-2023 INR Coag (PPP) [Relative time] 1.01 {INR} [facility] Comment on above: DESIRED INR:2.0-3.0 CONDITIONS NOT LISTED BELOW2.5-3.5 FOR PROSTHETIC HEART VALVE REPLACEMENT2.5-3.5 RECURRENT THROMBOSIS Laboratory - Chemistry and C hemistry - challengeon 04-20-2023 Calcium [Mass/Vol] 9.0 mg/dL 8.5-10.1 [facility] Chloride [Moles/Vol] 104 mmol/L 98-107 [facility] CO2 [Moles/Vol] 28.9 mmol/L 21.0-32.0 [facility] Creatinine [Mass/Vol] 0.89 mg/dL 0.70-1.30 [facility] GFR/1.73 sq M.predicted MDRD (S/P/Bld) [Vol rate/Area] mL/min/{1.73_m2} >=60 [facility] Glucose [Mass/Vol] 133 mg/dL 74-106 [facility] Potassium [Moles/Vol] 4.6 mmol/L 3.5-5.1 [facility] Sodium [Moles/Vol] 140 mmol/L 136-145 [facility] Urea nitrogen [Mass/Vol] 15.0 mg/dL 7.0-18.0 [facility] Urea nitrogen/Creatinine [Mass ratio] 16.9 mg/mg [facility] Laboratory - Hematology and Cell countson 04-20-2023 Immature granulocytes/100 WBC (Bld) 0.3 % 0.0-0.5 [facility] Leukocytes [#/volume] correc shyann for nucleated erythrocytes in Blood by Automated counon 04-20-2023 WBC corrected for nucl RBC Auto (Bld) [#/Vol] 9.9 10 3/uL 4.0-11.0 [facility] Lymphocytes Auto (Bld) [#/Vo l]on 04-20-2023 Lymphocytes (Bld) [#/Vol] 1.1 10 3/uL 1.2-3.8 [facility] Lymphocytes/100 WBC Auto (Bl d)on 04-20-2023 Lymphocytes/100 WBC (Bld) 11.3 % 20.5-60.0 [facility] MCH Auto (RBC) [Entitic mass ]on 04-20-2023 MCH (RBC) [Entitic mass] 29.6 pg 25.9-34.0 [facility] MCHC Auto (RBC) [Mass/Vol]on 04-20-2023 MCHC (RBC) [Mass/Vol] 31.3 g/dL 29.9-35.2 [facility] MCV Auto (RBC) [Entitic vol] on 04-20-2023 MCV (RBC) [Entitic vol] 94.6 fL 80.0-94.0 [facility] Monocytes Auto (Bld) [#/Vol] on 04-20-2023 Monocytes (Bld) [#/Vol] 0.8 10 3/uL 0.3-0.8 [facility] Monocytes/100 WBC Auto (Bld) on 04-20-2023 Monocytes/100 WBC (Bld) 8.5 % 1.7-12.0 [facility] Neutrophils Auto (Bld) [#/Vo l]on 04-20-2023 Neutrophils (Bld) [#/Vol] 7.8 10 3/uL 1.4-6.5 [facility] Neutrophils/100 WBC Auto (Bl d)on 04-20-2023 Neutrophils/100 WBC (Bld) 78.2 % 43.0-75.0 [facility] No Panel Informationon 04-20 Eosinophils # (Auto) 0.1 10 3/uL 0.0-0.7 [facility] Immature Granulocyte # (Auto) 0.03 10 3/uL 0.00-0.03 [facility] Platelet mean volume Auto (B ld) [Entitic vol]on 04-20-2023 Platelet mean volume (Bld) [Entitic vol] 9.4 fL 9.5-13.5 [facility] Platelets Auto (Bld) [#/Vol] on 04-20-2023 Platelets (Bld) [#/Vol] 188 10 3/uL 150-450 [facility] Prothrombin time (PT)on 04-08 PT Coag (PPP) [Time] 10.7 s 9.0-11.6 [facility] RBC Auto (Bld) [#/Vol]on RBC (Bld) [#/Vol] 3.88 10 6/uL 4.70-6.10 [facility] Serum or plasma anion gap de terminationon 04-20-2023 Anion gap [Moles/Vol] 11.7 mmol/L [facility] RAD - MISCon 04-08-2023 RAD - MISC [id number]#1.00TIFF Normal [facility] Operative Reporton Operative Report [id number]#1.00TIFF Normal [facility] RAD - MISCon 03-25-2023 RAD - MIS [id number]#1.00TIFF Normal [facility] Consent for Procedure/Surger yon 03-22-2023 Consent for Procedure/Surgery [id number]#1.00TIFF Normal [facility] Lab Reportson 03-19-2023 Lab Reports [id number]#1.00TIFF Normal [facility] RAD - MISCon 03-19-2023 RAD - MIS [id number]#1.00TIFF Normal [facility] Reminderson 03-03-2023 Reminders - From: Faviola Clemens To: EU - Recalls Lue; Sent: 01/13/2023 10:01:25 EST Show up: 02/12/2023 10:01:00 EST Subject: LINDSEY and KUB Due Date/Time: 02/12/2023 10:01:00 EST Pt to have LINDSEY and KUB done in March at [facility]. Orders placed. Possible ESWL pending size of stones. No follow up at this time. Pt to be called with results. Called pt and reminded him to complete LINDSEY/KUB @ [facility] in the next month. Orders were faxed [...] 02/22/2023 16:05:00 EST From: Belkis Johnson MA ([facility]) To: Ivelisse Hassan MD; Sent: 02/25/2023 [...] RO Patient is scheduled for 03/24/22 @ [facility] Comment on above: Result Comment: Miss ing Attachment - attachment exceeds size limitation (02/19/2023) RAD - Ultrasound Report Can be viewed in source system Missing Attachment - attachment exceeds size limitation (02/19/2023) RAD - MISC Can be viewed in source system RAD - MISCon 02-22-2023 RAD - MISC [id number]#1.00TIFF [facility] RAD - Ultrasound Reporton RAD - Ultrasound Report [id number]#1.00TIFF [facility] Screenson 01-14-2023 Screens [id number]#1.00TIFF Normal [facility] Screens [id number]#1.00TIFF Normal [facility] Patient Educationon 01-14-20 Patient Education Urology [...] Follow these instructions at home: ? Take xifw-mxb-ikiwfjm and prescription medicines only as told by [...] the medicine (more content not included)... Normal [facility] Urology Office/Clinic Noteon 01-13-2023 Urology Office/Clinic [...] with voice recognition artificial intelligence software, specifically Cloudbot, [employer] and or [employer]. Substitutions may have occurred due to the [...] stones no (more content not included)... Normal [facility] Comment on above: Result Comment: Elec tronically Signed By: Ivelisse Hassan MD\.br\Date and Time Signed: 01/13/23 16:25 EST\.br\Electronically Co-Signed By: Faviola Clemens\.br\Date and Time Co-Signed: 01/13/23 09:59 EST US carotid doppler BIon 09-0 US carotid doppler BI [facility] [place] [address] Ultrasound Report Signed Patient: Chico Baker MR#: [id number] : 1940 Acct:[id number] Age/Sex: 82 / M ADM Date: 11/10/22 Loc: [facility] Room: Type: [facility] Attending Dr: Raul Quan MD Ordering Provider: [...] Raul Quan M.D.11/10/2022 10:30 AM Dictation Location: [place] [address] Tech: Harika Pradhan Transcribed By: ALEX 11/10/22 1030 Dictated By: Raul Quan MD 11/10/22 1029 Signed By: 11/10/22 1030 Normal [facility] [place] 10-08-2022 Screens [id number]#1.00CD:127 Normal [facility] Screens [id number]#1.00CD:127 Normal [facility] Ambulatory Visit Summaryon 0 10-07-2022 Ambulatory Visit Summary CHICO BAKER :1940 Visit Date:10/07/2022 Ambulatory Visit Instructions Your Diagnosis BPH with obstruction/lower urinary tract symptoms History of kidney stones Asymptomatic microscopic hematuria 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 Tests Performed Urnls Dip Stick Auto w/o Microscopy POC 31878 Your Care Team Attending Physician - Ivelisse [...] Ivelisse Hassan MD Where: [facility] Normal [facility] Patient Educationon 10-08-19 Patient Education Urology [...] Follow these instructions at home: ? Take hmkk-wvs-bstibvf and prescription medicines only as told by [...] the medicine (more content not included)... Normal [facility] Urology Office/Clinic Noteon 10-07-2022 Urology Office/Clinic [...] lower urinary tract symptoms) hx TURP by [facility] 2019, prostate small on 05/11/22 CT [...] neg, s (more content not included)... Normal [facility] Comment on above: Result Comment: Elec tronically Signed By: Ivelisse Hassan MD\.br\Date and Time Signed: 10/07/22 10:28 EDT\.br\Electronically Co-Signed By: Eleonora Belcher\.br\Date and Time Co-Signed: 10/07/22 09:25 EDT Consent for Procedure/Surger yon 07-29-2022 Consent for Procedure/Surgery [id number]#1.00CD:127 Normal [facility] Patient Educationon 07-29-19 Patient Education Urology [...] these instructions at home: Medicines ? Take trfx-bvo-cmteuqk and prescription medicines only as told by [...] include cig (more content not included)... Normal [facility] Urology Office/Clinic Noteon 07-28-2022 Urology Office/Clinic [...] urine The Urethra was dilated to: 16-24 Stateless with connor sounds without difficulty Soft 14 [...] (erectile d (more content not included)... Normal [facility] Comment on above: Result Comment: Elec tronically Signed By: Ivelisse Hassan MD\.br\Date and Time Signed: 07/28/22 10:49 EDT\.br\Electronically Co-Signed By: Clarissa Joaquin MA.aida\Date and Time Co-Signed: 07/28/22 10:28 EDT Blood activated clotting sue e by coagulation assayOrdered By: Raul Quan on 07-08-2022 ACT Coag (Bld) 335 s 90-139 [facility] Comment on above: Reference Range: 90- 139 (Non-heparinized) Laboratory - CoagulationOrde red By: Raul Quan on 07-08-2022 PT Coag (PPP) [Time] 11.7 s 9.0-12.9 [facility] Platelet poor plasma interna tional normalized ratio (INR) by coagulation assay (relatOrdered By: Raul Quan on 07-08-2022 INR Coag (PPP) [Relative time] 1.0 {INR} [facility] Comment on above: INR Therapeutic [...] 07-01-2022 ALT [Catalytic activity/Vol] 9 U/L 7-52 [facility] Albumin [Mass/volume] in Ser um or Plasma by Bromocresol green (BCG) dye binding methoOrdered By: Raul Quan on 07-01-2022 Albumin BCG dye [Mass/Vol] 3.7 g/dL 3.5-5.7 [facility] Alkaline phosphatase [Enzyma tic activity/volume] in Serum or PlasmaOrdered By: Raul Quan on 07-01-2022 ALP [Catalytic activity/Vol] 96 U/L 34-104 [facility] Aspartate aminotransferase [ Enzymatic activity/volume] in Serum or PlasmaOrdered By: Raul Quan on 07-01-2022 AST [Catalytic activity/Vol] 14 U/L 13-39 [facility] Basophils Auto (Bld) [#/Vol] Ordered By: Raul Quan on 07-01-2022 Basophils (Bld) [#/Vol] 0.1 10*3/uL 0.0-0.2 [facility] Basophils/100 WBC Auto (Bld) Ordered By: aRul Quan on 07-01-2022 Basophils/100 WBC (Bld) 0.7 % . [facility] Bilirubin.total [Mass/volume ] in Serum or PlasmaOrdered By: Raul Quan on 07-01-2022 Bilirubin [Mass/Vol] 0.5 mg/dL 0.3-1.0 [facility] Calcium [Mass/volume] in Ser um or PlasmaOrdered By: Raul Quan on 07-01-2022 Calcium [Mass/Vol] 8.5 mg/dL 8.6-10.3 [facility] Carbon dioxide, total [Moles /volume] in Serum or PlasmaOrdered By: Raul uQan on 07-01-2022 CO2 [Moles/Vol] 24.6 mmol/L 21.0-31.0 [facility] Chloride [Moles/volume] in S aisha or PlasmaOrdered By: Raul Quan on 07-01-2022 Chloride [Moles/Vol] 100 mmol/L 98-107 [facility] Creatinine [Mass/volume] in Serum or PlasmaOrdered By: Raul Quan on 07-01-2022 Creatinine [Mass/Vol] 0.87 mg/dL 0.70-1.30 [facility] Eosinophils Auto (Bld) [#/Vo l]Ordered By: Raul Quan on 07-01-2022 Eosinophils (Bld) [#/Vol] 0.1 10*3/uL 0.0-0.45 [facility] Eosinophils/100 WBC Auto (Bl d)Ordered By: Raul Quan on 07-01-2022 Eosinophils/100 WBC (Bld) 1.5 % . [facility] Erythrocyte distribution wid th Auto (RBC) [Ratio]Ordered By: Raul Quan on 07-01-2022 Erythrocyte distribution width (RBC) [Ratio] 13.0 % 12.0-14.8 [facility] Globulin Calc (S) [Mass/Vol] Ordered By: Raul Quan on 07-01-2022 Globulin (S) [Mass/Vol] 3.4 g/dL [facility] Glucose [Mass/volume] in Ser um or PlasmaOrdered By: Raul Quan on 07-01-2022 Glucose [Mass/Vol] 163 mg/dL 70-100 [facility] Comment on above: ADA recommended refe rence rangeRandom Glucose Reference Range is dependent on time and content of last meal. Glucose of more than 200 mg/dL in a nonstressed, ambulatory subject supports the diagnosis of Diabetes Mellitus. Hematocrit Auto (Bld) [Volum e fraction]Ordered By: Raul Quan on 07-01-2022 Hematocrit (Bld) [Volume fraction] 36.4 % 38.8-50.0 [facility] Hemoglobin [Mass/volume] in BloodOrdered By: Raul Quan on 07-01-2022 Hemoglobin (Bld) [Mass/Vol] 12.1 g/dL 13.0-17.0 [facility] Leukocytes [#/volume] correc shyann for nucleated erythrocytes in Blood by Automated counOrdered By: Raul Quan on 07-01-2022 WBC corrected for nucl RBC Auto (Bld) [#/Vol] 8.5 10*3/uL 4.1-10.5 [facility] Lymphocytes Auto (Bld) [#/Vo l]Ordered By: Raul Quan on 07-01-2022 Lymphocytes (Bld) [#/Vol] 1.6 10*3/uL 1.00-4.8 [facility] Lymphocytes/100 WBC Auto (Bl d)Ordered By: Raul Quan on 07-01-2022 Lymphocytes/100 WBC (Bld) 19.3 % . [facility] MCH Auto (RBC) [Entitic mass ]Ordered By: Raul Quan on 07-01-2022 MCH (RBC) [Entitic mass] 30.2 pg 27.5-35.2 [facility] MCHC Auto (RBC) [Mass/Vol]Or dered By: Raul Quan on 07-01-2022 MCHC (RBC) [Mass/Vol] 33.3 g/dL 32.5-35.6 [facility] MCV Auto (RBC) [Entitic vol] Ordered By: Raul Quan on 07-01-2022 MCV (RBC) [Entitic vol] 90.7 fL 83.5-101 [facility] Monocytes Auto (Bld) [#/Vol] Ordered By: Raul Quan on 07-01-2022 Monocytes (Bld) [#/Vol] 0.9 10*3/uL 0.0-0.8 [facility] Monocytes/100 WBC Auto (Bld) Ordered By: Rual Quan on 07-01-2022 Monocytes/100 WBC (Bld) 11.1 % . [facility] Neutrophils Auto (Bld) [#/Vo l]Ordered By: Raul Quan on 07-01-2022 Neutrophils (Bld) [#/Vol] 5.7 10*3/uL 1.8-7.7 [facility] Neutrophils/100 WBC Auto (Bl d)Ordered By: Raul Quan on 07-01-2022 Neutrophils/100 WBC (Bld) 67.4 % . [facility] No Panel InformationOrdered By: Raul Quan on 07-01-2022 Estimated GFR (CKD-EPI) > 60.0 mL/Min [facility] Creatinine Clearance (Chem N/A [facility] Nucleated erythrocytes [Pres ence] in Blood by Automated countOrdered By: Raul Quan on 07-01-2022 Nucleated RBC Auto Ql (Bld) 0.0 /100{WBC} 0-0.5 [facility] Platelet mean volume Auto (B ld) [Entitic vol]Ordered By: Raul Quan on 07-01-2022 Platelet mean volume (Bld) [Entitic vol] 7.6 fL 6.6-10.1 [facility] Platelets Auto (Bld) [#/Vol] Ordered By: Raul Quan on 07-01-2022 Platelets (Bld) [#/Vol] 198 10*3/uL 150-450 [facility] Potassium [Moles/volume] in Serum or PlasmaOrdered By: Raul Quan on 07-01-2022 Potassium [Moles/Vol] 4.4 mmol/L 3.5-5.1 [facility] Protein [Mass/volume] in Ser um or PlasmaOrdered By: Raul Quan on 07-01-2022 Protein [Mass/Vol] 7.1 g/dL 6.4-8.9 [facility] RBC Auto (Bld) [#/Vol]Ordere d By: Raul Quan on 07-01-2022 RBC (Bld) [#/Vol] 4.01 10*6/uL 3.90-5.60 [facility] Serum or plasma albumin/glob ulin mass ratioOrdered By: Raul Quan on 07-01-2022 Albumin/Globulin [Mass ratio] 1.1 {ratio} [facility] Serum or plasma anion gap de terminationOrdered By: Raul Quan on 07-01-2022 Anion gap [Moles/Vol] 13.8 mmol/L 6.0-15.0 [facility] Sodium [Moles/volume] in Ser um or PlasmaOrdered By: Raul Quan on 07-01-2022 Sodium [Moles/Vol] 134 mmol/L 136-145 [facility] Urea nitrogen [Mass/volume] in Serum or PlasmaOrdered By: Raul Quan on 07-01-2022 Urea nitrogen [Mass/Vol] 17 mg/dL 7-25 [facility] WBC Auto (Bld) [#/Vol]Ordere d By: Raul Quan on 07-01-2022 WBC (Bld) [#/Vol] 8.5 10*3/uL 4.1-10.5 [facility] Patient Educationon 06-25-19 Patient Education Urology [...] these instructions at home: Medicines ? Take [id number]-kdakszb and prescription medicines only as told by [...] the blood stops without treatment. ? Take ipsq-okq-atipsxz and prescription medicines only as told by your health care provider. ? Drink enough fluid to keep your urine pale yellow. This information is not intended to replace advice given to you by your health care provider. Make sure you discuss any questions you have with your health care provider. Document Revised: 10/23/2020 Document Reviewed: 10/23/2020 [employer] Patient Education ? 2022 [place]. Normal [facility] Screenson 06-24-2022 Screens [id number]:127 [facility] Screens [id number]:127 [facility] Urology Office/Clinic Noteon 06-24-2022 Urology Office/Clinic [...] Urnls Dip Stick Auto w/o Microscopy POC 99118 Urology Procedure Order 4. Penile rash (R21: Rash and other nonspecific skin eruption) Pt states rash has completely cleared up after stopping Bactrim. Denies irritation. Head of penis is not red, but is discolored. Not bothersome. D/c use of cream. Resolved Ordered: Urology Procedure Order 5. ED (erectile dysfunction) (N52.9: Male erectile dysfunction, unspecified) (more content not included)... Normal [facility] Comment on above: Result Comment: Elec tronically Signed By: Mo LEIJA, Ivelisse Schreiber\.br\Date and Time Signed: 06/24/22 10:24 EDT RAD - CT Reporton 05-14-2022 RAD - CT Report [id number]#[id number]:127 Normal [facility] Creatinine (Bld) [Mass/Vol]O rdered By: Raul Quan on 05-11-2022 Creatinine [Mass/Vol] 0.9 mg/dL 0.6-1.3 [facility] Comment on above: ER/ESD physician is notified/shown all ISTAT results.Critical values may be confirmed by laboratory testing ifdeemed necessary by ER attending doctor. No Panel InformationOrdered By: Raul Quan on 05-11-2022 POC Estimated GFR > 60 [facility] Comment on above: GFR estimated refere nce range: According to KDOQI guidelines, <60 ml/min/1.73m2 is sufficient to diagnose a patient with chronic kidney disease. POC Estimated GFR Non- Amer > 60 [facility] URINALYSISOrdered By: Kirstie sanchez on [...] Interpretation Code Negative [facility] UA Auto SS Teller.plasma/Teller .RBC (Bld) [Mass ratio] 21-30 /HPF Invalid [...] [facility] UA Auto SS Urobilinogen Qn (U) 0.3294901 {Nikki'U}/dL Normal 0.0 - 1.0 EU/dL [facility] [...] Interpretation Code Negative [facility] UA Auto SS Teller.plasma/Teller .RBC (Bld) [Mass ratio] 4-20 /HPF Normal [...] Desc Random Urine (02/11/22 10:38 AM) Normal [facility] UA Auto SS Urobilinogen Qn (U) 0.8626111 {Nikki'U}/dL Normal 0.0 - 1.0 EU/dL [facility] UA Auto SS WBC Auto Ql (U) 1+ *ABN* (02/11/22 10:38 AM) Invalid Interpretation Code Negative [facility] UA Auto SS WBC LM.HPF (Urine sed) [#/Area] 0-5 /HPF Normal 0-5/HPF [facility] UA Auto SS Basophils Auto (Bld) [#/Vol] Ordered By: Raul Quan on 02-05-2022 Basophils (Bld) [#/Vol] 0.1 10*3/uL 0.0-0.2 [facility] Basophils/100 WBC Auto (Bld) Ordered By: Raul Quan on 02-05-2022 Basophils/100 WBC (Bld) 0.6 % . [facility] Creatinine and Glomerular fi ltration rate.predicted panel (S/P/Bld)Ordered By: Raul Quan on 02-05-2022 Creatinine [Mass/Vol] 0.94 mg/dL 0.64-1.27 [facility] Eosinophils Auto (Bld) [#/Vo l]Ordered By: Raul Quan on 02-05-2022 Eosinophils (Bld) [#/Vol] 0.1 10*3/uL 0.0-0.45 [facility] Eosinophils/100 WBC Auto (Bl d)Ordered By: Raul Quan on 02-05-2022 Eosinophils/100 WBC (Bld) 0.7 % . [facility] Erythrocyte distribution wid th Auto (RBC) [Ratio]Ordered By: Raul Quan on 02-05-2022 Erythrocyte distribution width (RBC) [Ratio] 13.8 % 12.0-14.8 [facility] Estimated glomerular filtrat ion rate (GFR) non- AmericanOrdered By: Raul Quan on 02-05-2022 GFR/1.73 sq M.predicted among non-blacks MDRD (S/P/Bld) [Vol rate/Area] > 60 mL/Min [facility] Hematocrit Auto (Bld) [Volum e fraction]Ordered By: Raul Quan on 02-05-2022 Hematocrit (Bld) [Volume fraction] 34.6 % 38.8-50.0 [facility] Hemoglobin [Mass/volume] in BloodOrdered By: Raul Quan on 02-05-2022 Hemoglobin (Bld) [Mass/Vol] 11.4 g/dL 13.0-17.0 [facility] Leukocytes [#/volume] correc shyann for nucleated erythrocytes in Blood by Automated counOrdered By: Raul Quan on 02-05-2022 WBC corrected for nucl RBC Auto (Bld) [#/Vol] 10.3 10*3/uL 4.1-10.5 [facility] Lymphocytes Auto (Bld) [#/Vo l]Ordered By: Raul Quan on 02-05-2022 Lymphocytes (Bld) [#/Vol] 1.5 10*3/uL 1.00-4.8 [facility] Lymphocytes/100 WBC Auto (Bl d)Ordered By: Raul Quan on 02-05-2022 Lymphocytes/100 WBC (Bld) 14.4 % . [facility] MCH Auto (RBC) [Entitic mass ]Ordered By: Raul Quan on 02-05-2022 MCH (RBC) [Entitic mass] 30.1 pg 27.5-35.2 [facility] MCHC Auto (RBC) [Mass/Vol]Or dered By: Raul Quan on 02-05-2022 MCHC (RBC) [Mass/Vol] 32.9 g/dL 32.5-35.6 [facility] MCV Auto (RBC) [Entitic vol] Ordered By: Raul Quan on 02-05-2022 MCV (RBC) [Entitic vol] 91.6 fL 83.5-101 [facility] Monocytes Auto (Bld) [#/Vol] Ordered By: Raul Quan on 02-05-2022 Monocytes (Bld) [#/Vol] 1.5 10*3/uL 0.0-0.8 [facility] Monocytes/100 WBC Auto (Bld) Ordered By: Raul Quan on 02-05-2022 Monocytes/100 WBC (Bld) 14.8 % . [facility] Neutrophils Auto (Bld) [#/Vo l]Ordered By: Raul Quan on 02-05-2022 Neutrophils (Bld) [#/Vol] 7.1 10*3/uL 1.8-7.7 [facility] Neutrophils/100 WBC Auto (Bl d)Ordered By: Raul Quan on 02-05-2022 Neutrophils/100 WBC (Bld) 69.5 % . [facility] No Panel InformationOrdered By: Raul Quan on 02-05-2022 Estimated GFR () > 60 mL/Min [facility] Comment on above: GFR estimated refere nce range: According to KDOQI guidelines, <60 ml/min/1.73m2 is sufficient to diagnose a patient with chronic kidney disease. Pharmacy Creatinine Clearance (Chem 57.50 [facility] Nucleated erythrocytes [Pres ence] in Blood by Automated countOrdered By: Raul Quan on 02-05-2022 Nucleated RBC Auto Ql (Bld) 0.1 /100{WBC} 0-0.5 [facility] Platelet mean volume Auto (B ld) [Entitic vol]Ordered By: Raul Quan on 02-05-2022 Platelet mean volume (Bld) [Entitic vol] 7.9 fL 6.6-10.1 [facility] Platelets Auto (Bld) [#/Vol] Ordered By: Raul Quan on 02-05-2022 Platelets (Bld) [#/Vol] 142 10*3/uL 150-450 [facility] Comment on above: Delta: 198 on -08 RBC Auto (Bld) [#/Vol]Ordere d By: Raul Quan on 02-05-2022 RBC (Bld) [#/Vol] 3.77 10*6/uL 3.90-5.60 [facility] Serum or plasma anion gap de terminationOrdered By: Raul Quan on 02-05-2022 Anion gap [Moles/Vol] 10.4 mmol/L 6.0-15.0 [facility] Serum or plasma calcium richy urement (mass/volume)Ordered By: Raul Quan on 02-05-2022 Calcium [Mass/Vol] 8.4 mg/dL 8.2-10.2 [facility] Serum or plasma chloride young surement (moles/volume)Ordered By: Raul Quan on 02-05-2022 Chloride [Moles/Vol] 101 mmol/L 95-114 [facility] Serum or plasma glucose richy urement (mass/volume)Ordered By: Raul Quan on 02-05-2022 Glucose [Mass/Vol] 109 mg/dL 70-100 [facility] Comment on above: ADA recommended refe rence rangeRandom Glucose Reference Range is dependent on time and content of last meal. Glucose of more than 200 mg/dL in a nonstressed, ambulatory subject supports the diagnosis of Diabetes Mellitus. Serum or plasma potassium me asurement (moles/volume)Ordered By: Raul Quan on 02-05-2022 Potassium [Moles/Vol] 4.6 mmol/L 3.5-5.1 [facility] Serum or plasma sodium measu rement (moles/volume)Ordered By: Raul Quan on 02-05-2022 Sodium [Moles/Vol] 135 mmol/L 136-146 [facility] Serum or plasma total carbon dioxide measurement (moles/volume)Ordered By: Raul Quan on 02-05-2022 CO2 [Moles/Vol] 28.2 mmol/L 22.0-30.0 [facility] Serum or plasma urea nitroge n measurement (mass/volume)Ordered By: Raul Quan on 02-05-2022 Urea nitrogen [Mass/Vol] 11 mg/dL 11-28 [facility] WBC Auto (Bld) [#/Vol]Ordere d By: Raul Quan on 02-05-2022 WBC (Bld) [#/Vol] 10.3 10*3/uL 4.1-10.5 [facility] Covid-19 PCR (CVDTB)on 01-07 SARS-CoV-2 (COVID-19) RNA JESSIE+probe Ql (Unsp spec) Not detected Normal NOT DETECTED [facility] Comment on above: Result Comment: This test is not yet approved or cleared by the [place] FDA. When there are no FDA-approved or cleared tests available, and other criteria are met, FDA can make tests available under an emergency access mechanism called an Emergency Use Authorization (EUA). The EUA for this test is supported by the [place] of Health and Human Service's (HHS's) declaration [...] SARS-CoV-2. Performed By: #### C VDTB #### [facility] [address] [address] [address] Jodi Oglesby CBC AUTO DIFFon 12-08-2021 BASO # 0.1 103/ul Normal 0.0-0.1 [facility] Comment on above: Performed By: #### D ATA1C #### [facility] [address] [place] [address] Dr. Jodi Oglesby Basophils/100 WBC (Bld) 0.5 % Normal 0.2-2.0 [facility] Comment on above: Performed By: #### D ATA1C #### [facility] [address] [place] [address] Dr. Jodi Oglesby EO # 0.1 103/ul Normal 0.0-0.7 [facility] Comment on above: Performed By: #### D ATA1C #### [facility] [address] [place] [address] Dr. Jodi Oglesby Eosinophils/100 WBC (Bld) 1.4 % Normal 0.9-7.0 [facility] Comment on above: Performed By: #### D ATA1C #### [facility] [address] [place] [address] Dr. Jodi Oglesby Erythrocyte distribution width (RBC) [Ratio] 13.0 % Normal 11.0-15.0 [facility] Comment on above: Performed By: #### D ATA1C #### [facility] [address] [place] [address] Dr. Jodi Oglesby Hematocrit (Bld) [Volume fraction] 36.1 % Critically low 42.0-54.0 [facility] Comment on above: Performed By: #### D ATA1C #### [facility] [address] [place] [address] Dr. Jodi Oglesby Hemoglobin (Bld) [Mass/Vol] 11.2 g/dL Critically low 14.0-18.0 [facility] Comment on above: Performed By: #### D ATA1C #### [facility] [address] [place] [address] Dr. Jodi Oglseby IG # 0.04 10e3/ul Critically high 0.00-0.03 [facility] Comment on above: Performed By: #### D ATA1C #### [facility] [address] [place] [address] Dr. Jodi Oglesby IG % 0.4 % Normal 0.0-0.5 [facility] Comment on above: Performed By: #### D ATA1C #### [facility] [address] [place] [address] Dr. Jodi Oglesby LYMPH # 1.8 103/ul Normal 1.2-3.8 [facility] Comment on above: Performed By: #### D ATA1C #### [facility] [address] [place] [address] Dr. Jodi Oglesby Lymphocytes/100 WBC (Bld) 17.2 % Critically low 20.5-60.0 [facility] Comment on above: Performed By: #### D ATA1C #### [facility] [address] [place] [address] Dr. Jodi Oglesby MANUAL DIFF REQ NO Normal [facility] Comment on above: Performed By: #### D ATA1C #### [facility] [address] [place] [address] Dr. Jodi Oglesby MCH (RBC) [Entitic mass] 30.4 pg Normal 25.9-34.0 [facility] Comment on above: Performed By: #### D ATA1C #### [facility] [address] [place] [address] Dr. Jodi Oglesby MCHC (RBC) [Mass/Vol] 31.0 g/dL Normal 29.9-35.2 [facility] Comment on above: Performed By: #### D ATA1C #### [facility] [address] [place] [address] Dr. Jodi Ogelsby MCV (RBC) [Entitic vol] 98.1 fL Critically high 80.0-94.0 [facility] Comment on above: Performed By: #### D ATA1C #### [facility] [address] [place] [address] Dr. Jodi Oglesby MONO # 1.0 103/ul Critically high 0.3-0.8 [facility] Comment on above: Performed By: #### D ATA1C #### [facility] [address] [place] [address] Dr. Jodi Oglesby Monocytes/100 WBC (Bld) 9.8 % Normal 1.7-12.0 [facility] Comment on above: Performed By: #### D ATA1C #### [facility] [address] [place] [address] Dr. Jodi Oglesby NEUT # 7.3 103/ul Critically high 1.4-6.5 [facility] Comment on above: Performed By: #### D ATA1C #### [facility] [address] [place] [address] Dr. Jodi Oglesby Neutrophils/100 WBC (Bld) 70.7 % Normal 43.0-75.0 [facility] Comment on above: Performed By: #### D ATA1C #### [facility] [address] [place] [address] Dr. Jodi Oglesby Platelet mean volume (Bld) [Entitic vol] 9.1 fL Critically low 9.5-13.5 [facility] Comment on above: Performed By: #### Chavez ATA1C #### [facility] [address] [place] [address] Dr. Jodi Oglesby PLT 214 103/ul Normal 150-450 [facility] Comment on above: Performed By: #### D ATA1C #### [facility] [address] [place] [address] Dr. Jodi Oglesby RBC 3.68 106/ul Critically low 4.70-6.10 [facility] Comment on above: Performed By: #### D ATA1C #### [facility] [address] [place] [address] Dr. Jodi Oglesby WBC 10.3 103/ul Normal 4.0-11.0 [facility] Comment on above: Performed By: #### D ATA1C #### [facility] [address] [place] [address] Dr. Jodi Oglesby PROF CHEM 8 (BAS METB)on Anion gap [Moles/Vol] 9.7 mmol/L Normal [facility] Comment on above: Performed By: #### C BC #### [facility] [address] [place] [address] Dr. Jodi Oglesby Calcium [Mass/Vol] 8.9 mg/dL Normal 8.5-10.1 [facility] Comment on above: Performed By: #### C BC #### [facility] [address] [place] [address] Dr. Jodi Oglesby Chloride [Moles/Vol] 102 mmol/L Normal 98-107 [facility] Comment on above: Performed By: #### C BC #### [facility] [address] [place] [address] Dr. Jodi Oglesby CO2 [Moles/Vol] 31.0 mmol/L Normal 21.0-32.0 [facility] Comment on above: Performed By: #### C BC #### [facility] [address] [place] [address] Dr. Jodi Oglesby Creatinine [Mass/Vol] 0.85 mg/dL Normal 0.70-1.30 [facility] Comment on above: Performed By: #### C BC #### [facility] [address] [place] [address] Dr. Jodi Oglesby EGFR-AF [place] >60 Normal >=60 [facility] Comment on above: Performed By: #### C BC #### [facility] [address] [place] [address] Dr. Jodi Oglesby EGFR-NON AF [place] >60 Normal >=60 [facility] Comment on above: Performed By: #### C BC #### [facility] [address] [place] [address] Dr. Jodi Oglesby Glucose [Mass/Vol] 106 mg/dL Normal 74-106 [facility] Comment on above: Performed By: #### C BC #### [facility] [address] [place] [address] Dr. Jodi Oglesby Potassium [Moles/Vol] 4.7 mmol/L Normal 3.5-5.1 [facility] Comment on above: Performed By: #### C BC #### [facility] [address] [place] [address] Dr. Jodi Oglesby Sodium [Moles/Vol] 138 mmol/L Normal 136-145 [facility] Comment on above: Performed By: #### C BC #### [facility] [address] [place], [place] [address] Dr. Jodi Oglesby Urea nitrogen [Mass/Vol] 14.0 mg/dL Normal 7.0-18.0 [facility] Comment on above: Performed By: #### C BC #### [facility] [address] [place], [place] [address] Dr. Jodi Oglesby Urea nitrogen/Creatinine [Mass ratio] 16.5 mg/mg Normal [facility] Comment on above: Performed By: #### C BC #### [facility] [address] [place], [place] [address] Dr. Jodi Oglesby XR CHEST 2 Von [...] ROCIO RICARDO Date: 2021-12-08 16:20 Normal [facility] Covid-19 PCR (CVDTB)on 11-07 SARS-CoV-2 (COVID-19) RNA JESSIE+probe Ql (Unsp spec) Not detected Normal NOT DETECTED [facility] Comment on above: Result Comment: This test is not yet approved or cleared by the [place] FDA. When there are no FDA-approved or cleared tests available, and other criteria are met, FDA can make tests available under an emergency access mechanism called an Emergency Use Authorization (EUA). The EUA for this test is supported by the [place] of Health and Human Service's (HHS's) declaration [...] SARS-CoV-2. Performed By: #### C VDTB #### [facility] [address] [place] [address] Dr. Jodi Oglesby CBC AUTO DIFFon 11-11-2021 BASO # 0.1 103/ul Normal 0.0-0.1 [facility] Comment on above: Performed By: #### C BC #### [facility] [address] [place] [address] Dr. Jodi Oglesby Basophils/100 WBC (Bld) 0.5 % Normal 0.2-2.0 [facility] Comment on above: Performed By: #### C BC #### [facility] [address] [place] [address] Dr. Jodi Oglesby EO # 0.2 103/ul Normal 0.0-0.7 [facility] Comment on above: Performed By: #### C BC #### [facility] [address] [place] [address] Dr. Jodi Oglesby Eosinophils/100 WBC (Bld) 1.9 % Normal 0.9-7.0 [facility] Comment on above: Performed By: #### C BC #### [facility] [address] [place] [address] Dr. Jodi Oglesby Erythrocyte distribution width (RBC) [Ratio] 13.6 % Normal 11.0-15.0 [facility] Comment on above: Performed By: #### C BC #### [facility] [address] [place] [address] Dr. Jodi Oglesby Hematocrit (Bld) [Volume fraction] 28.6 % Critically low 42.0-54.0 [facility] Comment on above: Performed By: #### C BC #### [facility] [address] [place] [address] Dr. Jodi Oglesby Hemoglobin (Bld) [Mass/Vol] 9.4 g/dL Critically low 14.0-18.0 [facility] Comment on above: Performed By: #### C BC #### [facility] [address] [place] [address] Dr. Jodi Oglesby IG # 0.08 10e3/ul Critically high 0.00-0.03 [facility] Comment on above: Performed By: #### C BC #### [facility] [address] [place] [address] Dr. Jodi Oglesby IG % 0.8 % Critically high 0.0-0.5 [facility] Comment on above: Performed By: #### C BC #### [facility] [address] [place] [address] Dr. Jodi Oglesby LYMPH # 1.3 103/ul Normal 1.2-3.8 [facility] Comment on above: Performed By: #### C BC #### [facility] [address] [place] [address] Dr. Jodi Oglesby Lymphocytes/100 WBC (Bld) 13.0 % Critically low 20.5-60.0 [facility] Comment on above: Performed By: #### C BC #### [facility] [address] [place] [address] Dr. oJdi Oglesby MANUAL DIFF REQ NO Normal [facility] Comment on above: Performed By: #### C BC #### [facility] [address] [place] [address] Dr. Jodi Oglesby MCH (RBC) [Entitic mass] 31.5 pg Normal 25.9-34.0 [facility] Comment on above: Performed By: #### C BC #### [facility] [address] [place] [address] Dr. Jodi Oglesby MCHC (RBC) [Mass/Vol] 32.9 g/dL Normal 29.9-35.2 [facility] Comment on above: Performed By: #### C BC #### [facility] [address] [place] [address] Dr. Jodi Oglesby MCV (RBC) [Entitic vol] 96.0 fL Critically high 80.0-94.0 [facility] Comment on above: Performed By: #### C BC #### [facility] [address] [place] [address] Dr. Jodi Oglesby MONO # 1.1 103/ul Critically high 0.3-0.8 [facility] Comment on above: Performed By: #### C BC #### [facility] [address] [place] [address] Dr. Jodi Oglesby Monocytes/100 WBC (Bld) 10.7 % Normal 1.7-12.0 [facility] Comment on above: Performed By: #### C BC #### [facility] [address] [place] [address] Dr. Jodi Oglesby NEUT # 7.4 103/ul Critically high 1.4-6.5 [facility] Comment on above: Performed By: #### C BC #### [facility] [address] [place] [address] Dr. Jodi Oglesby Neutrophils/100 WBC (Bld) 73.1 % Normal 43.0-75.0 [facility] Comment on above: Performed By: #### C BC #### [facility] [address] [place] [address] Dr. Jodi Oglesby Platelet mean volume (Bld) [Entitic vol] 9.3 fL Critically low 9.5-13.5 [facility] Comment on above: Performed By: #### C BC #### [facility] [address] [place] [address] Dr. Jodi Oglesby PLT 288 103/ul Normal 150-450 [facility] Comment on above: Performed By: #### C BC #### [facility] [address] [place] [address] Dr. Jodi Oglesby RBC 2.98 106/ul Critically low 4.70-6.10 [facility] Comment on above: Performed By: #### C BC #### [facility] [address] [place] [address] Dr. Jodi Oglesby WBC 10.1 103/ul Normal 4.0-11.0 [facility] Comment on above: Performed By: #### C BC #### [facility] [address] ABD/PELVIS WO CONon [...] TAYO CASTILLO Date: 2021-11-11 03:10 Normal [facility] Covid-19 PCR (CVDTB)on SARS-CoV-2 (COVID-19) RNA JESSIE+probe Ql (Unsp spec) Not detected Normal NOT DETECTED [facility] Comment on above: Result Comment: [...] for this test is supported by the Global Sourcing Manager of Health and Human Service's declaration [...] used). Performed By: #### C BC #### [facility] [address] [place], [place] [address] Dr. Jodi LOOMIS BLD IMMUNO SCREENon OCCULT BLOOD Negative Normal NEGATIVE [facility] Comment on above: Performed By: #### D ATA1C #### [facility] [address] [address] [address] Jodi Oglesby PROF 14(COMP METB)on 022 Albumin [Mass/Vol] 3.0 g/dL Critically low 3.4-5.0 [facility] Comment on above: Performed By: #### C MP #### [facility] [address] [place] [address] Dr. Jodi Oglesby Albumin/Globulin [Mass ratio] 0.8 {ratio} Normal [facility] Comment on above: Performed By: #### C MP #### [facility] [address] [place] [address] Dr. Jodi Oglesby ALP [Catalytic activity/Vol] 126 U/L Critically high 46-116 [facility] Comment on above: Performed By: #### C MP #### [facility] [address] [place] [address] Dr. Jodi Oglesby ALT [Catalytic activity/Vol] 22 U/L Normal 16-63 [facility] Comment on above: Performed By: #### C MP #### [facility] [address] [place] [address] Dr. Jodi Oglesby Anion gap [Moles/Vol] 16.7 mmol/L Normal Th [facility] Comment on above: Performed By: #### C MP #### [facility] [address] [place] [address] Dr. Jodi Oglesby AST [Catalytic activity/Vol] 23 U/L Normal 15-37 [facility] Comment on above: Performed By: #### C MP #### [facility] [address] [place] [address] Dr. Jodi Oglesby Bilirubin [Mass/Vol] 0.6 mg/dL Normal 0.2-1.0 [facility] Comment on above: Performed By: #### C MP #### [facility] [address] [place] [address] Dr. Jodi Oglesby Calcium [Mass/Vol] 8.5 mg/dL Normal 8.5-10.1 [facility] Comment on above: Performed By: #### C MP #### [facility] [address] [address] [address] Jodi Oglesby Chloride [Moles/Vol] 99 mmol/L Normal 98-107 [facility] Comment on above: Performed By: #### C MP #### [facility] [address] [address] [address] Jodi Oglesby CO2 [Moles/Vol] 27.4 mmol/L Normal 21.0-32.0 [facility] Comment on above: Performed By: #### C MP #### [facility] [address] [place] [address] Dr. Jodi Oglesby Creatinine [Mass/Vol] 0.80 mg/dL Normal 0.70-1.30 [facility] Comment on above: Performed By: #### C MP #### [facility] [address] [place] [address] Dr. Jodi Oglesby EGFR-AF SOUTH AFRICAN >60 Normal >=60 [facility] Comment on above: Performed By: #### C MP #### [facility] [address] [place] [address] Dr. Jodi Oglesby EGFR-NON AF SOUTH AFRICAN >60 Normal >=60 [facility] Comment on above: Performed By: #### C MP #### [facility] [address] [place] [address] Dr. Jodi Oglesby Globulin (S) [Mass/Vol] 3.9 g/dL Normal [facility] Comment on above: Performed By: #### C MP #### [facility] [address] [place] [address] Dr. Jodi Oglesby Glucose [Mass/Vol] 116 mg/dL Critically high 74-106 [facility] Comment on above: Performed By: #### C MP #### [facility] [address] [address] [address] Jodi Oglesby Potassium [Moles/Vol] 4.1 mmol/L Normal 3.5-5.1 [facility] Comment on above: Performed By: #### C MP #### [facility] [address] [place] [address] Dr. Jodi Oglesby Protein [Mass/Vol] 6.9 g/dL Normal 6.4-8.2 [facility] Comment on above: Performed By: #### C MP #### [facility] [address] [place] [address] Dr. Jodi Oglesby Sodium [Moles/Vol] 129 mmol/L Critically low 136-145 Th [facility] Comment on above: Performed By: #### C MP #### [facility] [address] [place] [address] Dr. Jodi Oglesby Urea nitrogen [Mass/Vol] 15.0 mg/dL Normal 7.0-18.0 [facility] Comment on above: Performed By: #### C MP #### [facility] [address] [place] [address] Dr. Jodi Oglesby Urea nitrogen/Creatinine [Mass ratio] 18.8 mg/mg Normal [facility] Comment on above: Performed By: #### C MP #### [facility] [address] [place] [address] Dr. Jodi Oglesby PROTIMEon 11-11-2021 INR Coag (PPP) [Relative time] 1.01 {INR} Normal [facility] Comment on above: Performed By: #### P TT, PT #### [facility] [address] [place] [address] Dr. Jodi Oglesby INR GUIDELINES SEE BELOW Normal [facility] Comment on above: Result Comment: ESHA RED INR: 2.0 - 3.0 CONDITIONS NOT LISTED BELOW 2.5 - 3.5 FOR PROSTHETIC HEART VALVE REPLACEMENT 2.5 - 3.5 RECURRENT THROMBOSIS Performed By: #### P TT, PT #### [facility] [address] [place] [address] Dr. Jodi Oglesby PT Coag (PPP) [Time] 10.9 s Normal 9.0-11.6 [facility] Comment on above: Performed By: #### P TT, PT #### [facility] [address] [place] [address] Dr. Jodi Oglesby PTTon 11-11-2021 aPTT Coag (Bld) [Time] 25.4 s Normal 22.3-36.2 [facility] Comment on above: Performed By: #### P TT, PT #### [facility] [address] [place] [address] Dr. Jodi Oglesby CBC AUTO DIFFon 10-26-2021 BASO # 0.0 103/ul Normal 0.0-0.1 [facility] Comment on above: Performed By: #### D ATA1C #### [facility] [address] [place] [address] Dr. Jodi Oglesby Basophils/100 WBC (Bld) 0.3 % Normal 0.2-2.0 [facility] Comment on above: Performed By: #### D ATA1C #### [facility] [address] [place] [address] Dr. Jodi Oglesby EO # 0.1 103/ul Normal 0.0-0.7 [facility] Comment on above: Performed By: #### D ATA1C #### [facility] [address] [place] [address] Dr. Jodi Oglesby Eosinophils/100 WBC (Bld) 0.5 % Critically low 0.9-7.0 [facility] Comment on above: Performed By: #### D ATA1C #### [facility] [address] [place] [address] Dr. Jodi Oglesby Erythrocyte distribution width (RBC) [Ratio] 12.4 % Normal 11.0-15.0 [facility] Comment on above: Performed By: #### D ATA1C #### [facility] [address] [place] [address] Dr. Jodi Oglesby Hematocrit (Bld) [Volume fraction] 39.5 % Critically low 42.0-54.0 [facility] Comment on above: Performed By: #### D ATA1C #### [facility] [address] [place] [address] Dr. Jodi Oglesby Hemoglobin (Bld) [Mass/Vol] 12.8 g/dL Critically low 14.0-18.0 [facility] Comment on above: Performed By: #### D ATA1C #### [facility] [address] [place] [address] Dr. Jodi Oglesby IG # 0.07 10e3/ul Critically high 0.00-0.03 [facility] Comment on above: Performed By: #### D ATA1C #### [facility] [address] [place] [address] Dr. Jodi Oglesby IG % 0.5 % Normal 0.0-0.5 [facility] Comment on above: Performed By: #### D ATA1C #### [facility] [address] [place] [address] Dr. Jodi Oglesby LYMPH # 0.9 103/ul Critically low 1.2-3.8 [facility] Comment on above: Performed By: #### D ATA1C #### [facility] [address] [place] [address] Dr. Jodi Oglesby Lymphocytes/100 WBC (Bld) 6.3 % Critically low 20.5-60.0 [facility] Comment on above: Performed By: #### D ATA1C #### [facility] [address] [place] [address] Dr. Jodi Oglesby MANUAL DIFF REQ NO Normal [facility] Comment on above: Performed By: #### D ATA1C #### [facility] [address] [place] [address] Dr. Jodi Olgesby MCH (RBC) [Entitic mass] 30.8 pg Normal 25.9-34.0 [facility] Comment on above: Performed By: #### D ATA1C #### [facility] [address] [place] [address] Dr. Jodi Oglesby MCHC (RBC) [Mass/Vol] 32.4 g/dL Normal 29.9-35.2 [facility] Comment on above: Performed By: #### D ATA1C #### [facility] [address] [place] [address] Dr. Jodi Oglesby MCV (RBC) [Entitic vol] 95.2 fL Critically high 80.0-94.0 [facility] Comment on above: Performed By: #### D ATA1C #### [facility] [address] [place] [address] Dr. Jodi Oglesby MONO # 0.9 103/ul Critically high 0.3-0.8 [facility] Comment on above: Performed By: #### D ATA1C #### [facility] [address] [place] [address] Dr. Jodi Oglesby Monocytes/100 WBC (Bld) 6.2 % Normal 1.7-12.0 [facility] Comment on above: Performed By: #### D ATA1C #### [facility] [address] [place] [address] Dr. Jodi Oglesby NEUT # 12.8 103/ul Critically high 1.4-6.5 [facility] Comment on above: Performed By: #### D ATA1C #### [facility] [address] [place] [address] Dr. Jodi Oglesby Neutrophils/100 WBC (Bld) 86.2 % Critically high 43.0-75.0 [facility] Comment on above: Performed By: #### Chavez ATA1C #### [facility] [address] [place] [address] Dr. Jodi Oglesby Platelet mean volume (Bld) [Entitic vol] 9.4 fL Critically low 9.5-13.5 [facility] Comment on above: Performed By: #### D ATA1C #### [facility] [address] [place] [address] Dr. Jodi Oglesby PLT 169 103/ul Normal 150-450 [facility] Comment on above: Performed By: #### Chaevz ATA1C #### [facility] [address] [place] [address] Dr. Jodi Oglesby RBC 4.15 106/ul Critically low 4.70-6.10 [facility] Comment on above: Performed By: #### D ATA1C #### [facility] [address] [place] [address] Dr. Jodi Oglesby WBC 14.8 103/ul Critically high 4.0-11.0 [facility] Comment on above: Performed By: #### D ATA1C #### [facility] [address] [place] [address] CHEST WO CONon [...] NICOLE SIMMS Date: 2021-10-26 17:38 Normal [facility] Covid-19 PCR (CVDTB)on 10-07 SARS-CoV-2 (COVID-19) RNA JESSIE+probe Ql (Unsp spec) Not detected Normal NOT DETECTED [facility] Comment on above: Result Comment: [...] for this test is supported by the Global Sourcing Manager of Health and Human Service's declaration [...] used). Performed By: #### D ATA1C #### [facility] [address] [place] [address] Dr. Jodi Oglesby PROF CHEM 8 (BAS METB)on Anion gap [Moles/Vol] 11.7 mmol/L Normal Th [facility] Comment on above: Performed By: #### C BC #### [facility] [address] [place] [address] Dr. Jodi Oglesby Calcium [Mass/Vol] 9.2 mg/dL Normal 8.5-10.1 [facility] Comment on above: Performed By: #### C BC #### [facility] [address] [place] [address] Dr. Jodi Oglesby Chloride [Moles/Vol] 101 mmol/L Normal 98-107 [facility] Comment on above: Performed By: #### C BC #### [facility] [address] [place] [address] Dr. Jodi Oglesby CO2 [Moles/Vol] 27.6 mmol/L Normal 21.0-32.0 [facility] Comment on above: Performed By: #### C BC #### [facility] [address] [place] [address] Dr. Jodi Oglesby Creatinine [Mass/Vol] 0.98 mg/dL Normal 0.70-1.30 [facility] Comment on above: Performed By: #### C BC #### [facility] [address] [place] [address] Dr. Jodi Oglesby EGFR-AF SOU[place] AFR[place] >60 Normal >=60 [facility] Comment on above: Performed By: #### C BC #### [facility] [address] [place] [address] Dr. Jodi Oglesby EGFR-NON AF [place]OU[place] >60 Normal >=60 [facility] Comment on above: Performed By: #### C BC #### [facility] [address] [address] [address] Jodi Oglesby Glucose [Mass/Vol] 119 mg/dL Critically high 74-106 T [facility] Comment on above: Performed By: #### C BC #### [facility] [address] [place], [place] [address] Dr. Jodi Oglesby Potassium [Moles/Vol] 4.3 mmol/L Normal 3.5-5.1 [facility] Comment on above: Performed By: #### C BC #### [facility] [address] [address] [address] Jodi Oglesby Sodium [Moles/Vol] 136 mmol/L Normal 136-145 [facility] Comment on above: Performed By: #### C BC #### [facility] [address] [address] [address] Jodi Oglesby Urea nitrogen [Mass/Vol] 15.0 mg/dL Normal 7.0-18.0 [facility] Comment on above: Performed By: #### C BC #### [facility] [address] [address] [address] Jodi Oglesby Urea nitrogen/Creatinine [Mass ratio] 15.3 mg/mg Normal [facility] Comment on above: Performed By: #### C BC #### [facility] [address] [address] [address] Jodi Oglesby XR CLAVICLE RTon 10-26-2021 [...] by: JANE Saravia: 2021-10-26 15:37 Normal [facility] XR ELBOW RT MIN 3 [...] DEL CHAKRABORTY Date: 2021-10-26 17:23 Normal [facility] XR HIP RT 2 3V [...] CHARLES ALEJANDRA Date: 2021-10-26 15:40 Normal [facility] CARDIAC STRESS/REST INJE CTIONon 10-21-2021 [facility] CARDIAC STRESS/REST INJECTION Patient Name: CHICO BAKRE STUDY: MYOCARDIAL PERFUSION STRESS TEST WITH LEXISCAN Performing facility: [facility], [address] [place] [address], [address], [address] Provider: Adilene Harrington MD, [facility] PCP: Dr. Jori Dunham Supervising provider: [facility], [facility] INDICATION: AAA Pre-operative risk assessment for AAA scheduled at [facility] on D. HISTORY: Gender: M; Age: 81 y/o ; Height: 0 cm; Weight: 0 kg. HTN; Carotid disease PAD AAA Denies smoking. COMPARISON: Previous nuclear testing completed at [facility]. Previous echo testing completed on 2020 at [facility]. ACCESSION NUMBER(S): [id number]; [id number]; [id number] ORDERING CLINICIAN: JUDAH HARRINGTON TECHNIQUE: ONE DAY [...] Electronically signed by: ALL HUDSON MD Normal [facility] No Panel Informationon 10-21 Normal -[facility] [address] [place] Work Phone: COVID-19 Positive/NegativeOr dered By: Raul Quan on 10-13-2021 SARS-CoV-2 (COVID-19) N gene JESSIE+probe Ql (Resp) Negative Negative [facility] Comment on above: Testing for SARS-CoV -2 by RT-PCR This test was developed and its performance characteristics determined by [employer] ([employer]) and validated at the [facility]. This test has not been [...] 10-06-2021 Basophils (Bld) [#/Vol] 0.0 10*3/uL 0.0-0.2 [facility] Basophils/100 WBC Auto (Bld) Ordered By: Raul Quan on 10-06-2021 Basophils/100 WBC (Bld) 0.7 % . [facility] Blood hemoglobin measurement (mass/volume)Ordered By: Raul Quan on 10-06-2021 Hemoglobin (Bld) [Mass/Vol] 13.1 g/dL 13.0-17.0 [facility] Blood leukocytes automated c ount (number/volume)Ordered By: Raul Quan on 10-06-2021 WBC (Bld) [#/Vol] 5.2 10*3/uL 4.5-11.0 [facility] Creatinine and Glomerular fi ltration rate.predicted panel (S/P/Bld)Ordered By: Raul Quan on 10-06-2021 Creatinine [Mass/Vol] 0.98 mg/dL 0.64-1.27 [facility] Eosinophils Auto (Bld) [#/Vo l]Ordered By: Raul Quan on 10-06-2021 Eosinophils (Bld) [#/Vol] 0.1 10*3/uL 0.0-0.45 [facility] Eosinophils/100 WBC Auto (Bl d)Ordered By: Raul Quan on 10-06-2021 Eosinophils/100 WBC (Bld) 1.3 % . [facility] Erythrocyte distribution wid th Auto (RBC) [Ratio]Ordered By: Raul Quan on 10-06-2021 Erythrocyte distribution width (RBC) [Ratio] 13.3 % 12.0-14.8 [facility] Estimated glomerular filtrat ion rate (GFR) non- AmericanOrdered By: Raul Quan on 10-06-2021 GFR/1.73 sq M.predicted among non-blacks MDRD (S/P/Bld) [Vol rate/Area] > 60 mL/Min [facility] Hematocrit Auto (Bld) [Volum e fraction]Ordered By: Raul Quan on 10-06-2021 Hematocrit (Bld) [Volume fraction] 40.4 % 38.8-50.0 [facility] - Hematology and Cell countsOrdered By: Raul Quan on 10-06-2021 Nucleated RBC/100 WBC (Bld) [Ratio] 0.0 % 0-0.5 [facility] Lymphocytes Auto (Bld) [#/Vo l]Ordered By: Raul Quan on 10-06-2021 Lymphocytes (Bld) [#/Vol] 1.0 10*3/uL 1.00-4.8 [facility] Lymphocytes/100 WBC Auto (Bl d)Ordered By: Raul Quan on 10-06-2021 Lymphocytes/100 WBC (Bld) 18.4 % . [facility] MCH Auto (RBC) [Entitic mass ]Ordered By: Raul Quan on 10-06-2021 MCH (RBC) [Entitic mass] 30.9 pg 27.5-35.2 [facility] MCHC Auto (RBC) [Mass/Vol]Or dered By: Raul Quan on 10-06-2021 MCHC (RBC) [Mass/Vol] 32.5 g/dL 32.5-35.6 [facility] MCV Auto (RBC) [Entitic vol] Ordered By: Raul Quan on 10-06-2021 MCV (RBC) [Entitic vol] 95.2 fL 83.5-101 [facility] Monocytes Auto (Bld) [#/Vol] Ordered By: Raul Quan on 10-06-2021 Monocytes (Bld) [#/Vol] 0.6 10*3/uL 0.0-0.8 [facility] Monocytes/100 WBC Auto (Bld) Ordered By: Raul Quan on 10-06-2021 Monocytes/100 WBC (Bld) 12.0 % . [facility] Neutrophils Auto (Bld) [#/Vo l]Ordered By: Raul Quan on 10-06-2021 Neutrophils (Bld) [#/Vol] 3.5 10*3/uL 1.8-7.7 [facility] [facility] Neutrophils/100 WBC Auto (Bl d)Ordered By: Raul Quan on 10-06-2021 Neutrophils/100 WBC (Bld) 67.6 % . [facility] No Panel InformationOrdered By: Raul Quan on 10-06-2021 Estimated GFR () > 60 mL/Min [facility] Comment on above: GFR estimated refere nce range: According to KDOQI guidelines, <60 ml/min/1.73m2 is sufficient to diagnose a patient with chronic kidney disease. Pharmacy Creatinine Clearance (Chem N/A [facility] Platelet mean volume Auto (B ld) [Entitic vol]Ordered By: Raul Quan on 10-06-2021 Platelet mean volume (Bld) [Entitic vol] 8.1 fL 6.6-10.1 [facility] Platelets Auto (Bld) [#/Vol] Ordered By: Raul Quan on 10-06-2021 Platelets (Bld) [#/Vol] 185 10*3/uL 150-450 [facility] RBC Auto (Bld) [#/Vol]Ordere d By: Raul Quan on 10-06-2021 RBC (Bld) [#/Vol] 4.25 10*6/uL 3.90-5.60 [facility] Serum or plasma calcium richy urement (mass/volume)Ordered By: Raul Quan on 10-06-2021 Calcium [Mass/Vol] 9.0 mg/dL 8.2-10.2 [facility] Serum or plasma chloride young surement (moles/volume)Ordered By: Raul Quan on 10-06-2021 Chloride [Moles/Vol] 101 mmol/L 95-114 [facility] Serum or plasma glucose richy urement (mass/volume)Ordered By: Raul Quan on 10-06-2021 Glucose [Mass/Vol] 187 mg/dL 70-100 [facility] Comment on above: ADA recommended refe rence range Random Glucose Reference Range is dependent on time and content of last meal. Glucose of more than 200 mg/dL in a nonstressed, ambulatory subject supports the diagnosis of Diabetes Mellitus. Serum or plasma potassium me asurement (moles/volume)Ordered By: Raul Quan on 10-06-2021 Potassium [Moles/Vol] 4.0 mmol/L 3.5-5.1 [facility] Serum or plasma sodium measu rement (moles/volume)Ordered By: Raul Quan on 10-06-2021 Sodium [Moles/Vol] 135 mmol/L 136-146 [facility] Serum or plasma total carbon dioxide measurement (moles/volume)Ordered By: Raul Quan on 10-06-2021 CO2 [Moles/Vol] 25.1 mmol/L 22.0-30.0 [facility] Serum or plasma urea nitroge n measurement (mass/volume)Ordered By: Raul Quan on 10-06-2021 Urea nitrogen [Mass/Vol] 13 mg/dL 9-23 [facility] CBC AUTO DIFFon 09-22-2021 BASO # 0.0 103/ul Normal 0.0-0.1 [facility] Comment on above: Performed By: #### C BC #### [facility] [address] [address] [address] Jodi Oglesby Basophils/100 WBC (Bld) 0.3 % Normal 0.2-2.0 [facility] Comment on above: Performed By: #### C BC #### [facility] [address] [place] [address] Dr. Jodi Oglesby EO # 0.1 103/ul Normal 0.0-0.7 [facility] Comment on above: Performed By: #### C BC #### [facility] [address] [place] [address] Dr. Jodi Oglesby Eosinophils/100 WBC (Bld) 0.8 % Critically low 0.9-7.0 [facility] Comment on above: Performed By: #### C BC #### [facility] [address] [place] [address] Dr. Jodi Oglesby Erythrocyte distribution width (RBC) [Ratio] 12.5 % Normal 11.0-15.0 [facility] Comment on above: Performed By: #### C BC #### [facility] [address] [place] [address] Dr. Jodi Oglesby Hematocrit (Bld) [Volume fraction] 43.6 % Normal 42.0-54.0 [facility] Comment on above: Performed By: #### C BC #### [facility] [address] [place] [address] Dr. Jodi Oglesby Hemoglobin (Bld) [Mass/Vol] 14.1 g/dL Normal 14.0-18.0 [facility] Comment on above: Performed By: #### C BC #### [facility] [address] [place] [address] Dr. Jodi Oglesby IG # 0.03 10e3/ul Normal 0.00-0.03 [facility] Comment on above: Performed By: #### C BC #### [facility] [address] [place] [address] Dr. Jodi Oglesby IG % 0.3 % Normal 0.0-0.5 [facility] Comment on above: Performed By: #### C BC #### [facility] [address] [place] [address] Dr. Jodi Oglesby LYMPH # 1.5 103/ul Normal 1.2-3.8 [facility] Comment on above: Performed By: #### C BC #### [facility] [address] [place] [address] Dr. Jodi Oglesby Lymphocytes/100 WBC (Bld) 17.2 % Critically low 20.5-60.0 [facility] Comment on above: Performed By: #### C BC #### [facility] [address] [place] [address] Dr. Jodi Oglesby MANUAL DIFF REQ NO Normal [facility] Comment on above: Performed By: #### C BC #### [facility] [address] [place] [address] Dr. Jodi Oglesby MCH (RBC) [Entitic mass] 31.1 pg Normal 25.9-34.0 [facility] Comment on above: Performed By: #### C BC #### [facility] [address] [place] [address] Dr. Jodi Oglesby MCHC (RBC) [Mass/Vol] 32.3 g/dL Normal 29.9-35.2 [facility] Comment on above: Performed By: #### C BC #### [facility] [address] [place] [address] Dr. Jodi Oglesby MCV (RBC) [Entitic vol] 96.0 fL Critically high 80.0-94.0 [facility] Comment on above: Performed By: #### C BC #### [facility] [address] [place] [address] Dr. Jodi Oglesby MONO # 1.0 103/ul Critically high 0.3-0.8 [facility] Comment on above: Performed By: #### C BC #### [facility] [address] [place] [address] Dr. Jodi Oglesby Monocytes/100 WBC (Bld) 10.8 % Normal 1.7-12.0 [facility] Comment on above: Performed By: #### C BC #### [facility] [address] [place] [address] Dr. Jodi Oglesby NEUT # 6.2 103/ul Normal 1.4-6.5 [facility] Comment on above: Performed By: #### C BC #### [facility] [address] [place] [address] Dr. Jodi Oglesby Neutrophils/100 WBC (Bld) 70.6 % Normal 43.0-75.0 [facility] Comment on above: Performed By: #### C BC #### [facility] [address] [place] [address] Dr. Jodi Oglesby Platelet mean volume (Bld) [Entitic vol] 9.6 fL Normal 9.5-13.5 [facility] Comment on above: Performed By: #### C BC #### [facility] [address] [place] [address] Dr. Jodi Oglesby PLT 206 103/ul Normal 150-450 [facility] Comment on above: Performed By: #### C BC #### [facility] [address] [place] [address] Dr. Jodi gOlesby RBC 4.54 106/ul Critically low 4.70-6.10 [facility] Comment on above: Performed By: #### C BC #### [facility] [address] [place] [address] Dr. Jodi Oglesby WBC 8.8 103/ul Normal 4.0-11.0 [facility] Comment on above: Performed By: #### C BC #### [facility] [address] [place] [address] Dr. Jodi Oglesby PROF CHEM 8 (BAS METB)on Anion gap [Moles/Vol] 9.5 mmol/L Normal [facility] Comment on above: Performed By: #### B MP #### [facility] [address] [place] [address] Dr. Jodi Oglesby Calcium [Mass/Vol] 9.4 mg/dL Normal 8.5-10.1 [facility] Comment on above: Performed By: #### B MP #### [facility] [address] [place] [address] Dr. Jodi Oglesby Chloride [Moles/Vol] 100 mmol/L Normal 98-107 [facility] Comment on above: Performed By: #### B MP #### [facility] [address] [address] [address] Jodi Oglesby CO2 [Moles/Vol] 33.2 mmol/L Critically high 21.0-32.0 [facility] Comment on above: Performed By: #### B MP #### [facility] [address] [address] [address] Jodi Oglesby Creatinine [Mass/Vol] 0.99 mg/dL Normal 0.70-1.30 [facility] Comment on above: Performed By: #### B MP #### [facility] [address] [place] [address] Dr. Jodi Oglesby EGFR-AF SOUTH AFR[place] >60 Normal >=60 [facility] Comment on above: Performed By: #### B MP #### [facility] [address] [place] [address] Dr. Jodi Oglesby EGFR-NON AF [place]OU[place] AFR[place] >60 Normal >=60 [facility] Comment on above: Performed By: #### B MP #### [facility] [address] [place] [address] Dr. Jodi Oglesby Glucose [Mass/Vol] 109 mg/dL Critically high 74-106 [facility] Comment on above: Performed By: #### B MP #### [facility] [address] [place] [address] Dr. Jodi Oglesby Potassium [Moles/Vol] 4.7 mmol/L Normal 3.5-5.1 [facility] Comment on above: Performed By: #### B MP #### [facility] [address] [place] [address] Dr. Jodi Oglesby Sodium [Moles/Vol] 138 mmol/L Normal 136-145 [facility] Comment on above: Performed By: #### B MP #### [facility] [address] [place] [address] Dr. Jodi Oglesby Urea nitrogen [Mass/Vol] 17.0 mg/dL Normal 7.0-18.0 [facility] Comment on above: Performed By: #### B MP #### [facility] [address] [place] [address] Dr. Jodi Oglesby Urea nitrogen/Creatinine [Mass ratio] 17.2 mg/mg Normal [facility] Comment on above: Performed By: #### B MP #### [facility] [address] [address] [address] Jodi Oglesby Creatinine (Bld) [Mass/Vol]O rdered By: Tamar Perea on 09-18-2021 Creatinine [Mass/Vol] 0.8 mg/dL 0.6-1.3 [facility] Comment on above: ER/ESD physician is notified/shown all ISTAT results. Critical values may be confirmed by laboratory testing if deemed necessary by ER attending doctor. No Panel InformationOrdered By: Tamar Perea on 09-18-2021 POC Estimated GFR > 60 [facility] Comment on above: GFR estimated refere nce range: According to KDOQI guidelines, <60 ml/min/1.73m2 is sufficient to diagnose a patient with chronic kidney disease. POC Estimated GFR Non- Amer > 60 [facility] CBC AUTO DIFFon 08-12-2021 BASO # 0.0 103/ul Normal 0.0-0.1 [facility] Comment on above: Performed By: #### C BC #### [facility] [address] [place] [address] Dr. Jodi Ogelsby Basophils/100 WBC (Bld) 0.3 % Normal 0.2-2.0 [facility] Comment on above: Performed By: #### C BC #### [facility] [address] [address] [address] Jodi Oglesby EO # 0.1 103/ul Normal 0.0-0.7 [facility] Comment on above: Performed By: #### C BC #### [facility] [id number] Jodi Oglesby Eosinophils/100 WBC (Bld) 1.8 % Normal 0.9-7.0 [facility] Comment on above: Performed By: #### C BC #### [facility] [address] [address] [address] Jodi Oglesby Erythrocyte distribution width (RBC) [Ratio] 12.6 % Normal 11.0-15.0 [facility] Comment on above: Performed By: #### C BC #### [facility] [address] [place] [address] Dr. Jodi Oglesby Hematocrit (Bld) [Volume fraction] 40.9 % Critically low 42.0-54.0 [facility] Comment on above: Performed By: #### C BC #### [facility] [address] [place] [address] Dr. Jodi Oglesby Hemoglobin (Bld) [Mass/Vol] 13.4 g/dL Critically low 14.0-18.0 [facility] Comment on above: Performed By: #### C BC #### [facility] [address] [place] [address] Dr. Jodi Oglesby IG # 0.03 10e3/ul Normal 0.00-0.03 [facility] Comment on above: Performed By: #### C BC #### [facility] [address] [place] [address] Dr. Jodi Oglesby IG % 0.4 % Normal 0.0-0.5 [facility] Comment on above: Performed By: #### C BC #### [facility] [address] [place] [address] Dr. Jodi Oglesby LYMPH # 1.4 103/ul Normal 1.2-3.8 [facility] Comment on above: Performed By: #### C BC #### [facility] [address] [place] [address] Dr. Jodi Oglesby Lymphocytes/100 WBC (Bld) 18.6 % Critically low 20.5-60.0 [facility] Comment on above: Performed By: #### C BC #### [facility] [address] [place] [address] Dr. Jodi Oglesby MCH (RBC) [Entitic mass] 31.5 pg Normal 25.9-34.0 [facility] Comment on above: Performed By: #### C BC #### [facility] [address] [place] [address] Dr. Jodi Oglesby MCHC (RBC) [Mass/Vol] 32.8 g/dL Normal 29.9-35.2 [facility] Comment on above: Performed By: #### C BC #### [facility] [address] [place] [address] Dr. Jodi Oglesby MCV (RBC) [Entitic vol] 96.0 fL Critically high 80.0-94.0 [facility] Comment on above: Performed By: #### C BC #### [facility] [address] [place] [address] Dr. Jodi Oglesby MONO # 0.7 103/ul Normal 0.3-0.8 [facility] Comment on above: Performed By: #### C BC #### [facility] [address] [place] [address] Dr. Jodi Oglesby Monocytes/100 WBC (Bld) 9.7 % Normal 1.7-12.0 [facility] Comment on above: Performed By: #### C BC #### [facility] [address] [place] [address] Dr. Jodi Oglesby NEUT # 5.1 103/ul Normal 1.4-6.5 [facility] Comment on above: Performed By: #### C BC #### [facility] [address] [place] [address] Dr. Jodi Oglesby Neutrophils/100 WBC (Bld) 69.2 % Normal 43.0-75.0 [facility] Comment on above: Performed By: #### C BC #### [facility] [address] [place] [address] Dr. Jodi Oglesby Platelet mean volume (Bld) [Entitic vol] 9.8 fL Normal 9.5-13.5 [facility] Comment on above: Performed By: #### C BC #### [facility] [address] [place] [address] Dr. Jodi Oglesby PLT 195 103/ul Normal 150-450 [facility] Comment on above: Performed By: #### C BC #### [facility] [address] [place] [address] Dr. Jodi Oglesby RBC 4.26 106/ul Critically low 4.70-6.10 [facility] Comment on above: Performed By: #### C BC #### [facility] [address] [place] [address] Dr. Jodi Oglesby WBC 7.4 103/ul Normal 4.0-11.0 [facility] Comment on above: Performed By: #### C BC #### [facility] [address] [place] [address] Dr. Jodi Oglesby ASHLEY - TSHon 08-12-2021 TSH 1.879 uIU/mL Normal 0.358-3.74 0 [facility] Comment on above: Performed By: #### D LULU DATBMP #### [facility] [address] [place] [address] Dr. Jodi Oglesby TSH RANGE SEE BELOW Normal [facility] Comment on above: Result Comment: <0.3 4 UIU/ml HYPERTHYROID 0.34-5.60 UIU/ml EUTHYROID >5.60 UIU/ml HYPOTHYROID Performed By: #### D LULU DATBMP #### [facility] [address] [place] [address] Dr. Jodi Oglesby ASHLEY- BMP WITH LIPIDon 2021 Anion gap [Moles/Vol] 11.4 mmol/L Normal [facility] Comment on above: Performed By: #### D LULU, DATBMP #### [facility] [address] [place] [address] Dr. Jodi Oglesby Calcium [Mass/Vol] 8.7 mg/dL Normal 8.5-10.1 [facility] Comment on above: Performed By: #### D ATTKENDELL, DATBMP #### [facility] [address] [place] [address] Dr. Jodi Oglesby Chloride [Moles/Vol] 105 mmol/L Normal 98-107 [facility] Comment on above: Performed By: #### D ATTKENDELL, DATBMP #### [facility] [address] [place] [address] Dr. Jodi Oglesby Cholesterol [Mass/Vol] 113 mg/dL Normal <=200 [facility] Comment on above: Performed By: #### D ATTKENDELL, DATBMP #### [facility] [address] [address] [address] Jodi Oglesby Cholesterol in HDL [Mass/Vol] 47 mg/dL Normal 40-60 [facility] Comment on above: Performed By: #### D ATTSH, DATBMP #### [facility] [address] [address] [address] Jodi Oglesby Cholesterol in LDL [Mass/Vol] 58.0 mg/dL Normal [facility] Comment on above: Performed By: #### D ATTSH, DATBMP #### [facility] [address] [address] [address] Jodi Oglesby CO2 [Moles/Vol] 29.0 mmol/L Normal 21.0-32.0 [facility] Comment on above: Performed By: #### D ATTSH, DATBMP #### [facility] [address] [address] [address] Jodi Oglesby Creatinine [Mass/Vol] 0.99 mg/dL Normal 0.70-1.30 [facility] Comment on above: Performed By: #### D ATTSH, DATBMP #### [facility] [address] [address] [address] Jodi Oglesby EGFR-AF [place]OU[place]FR[place] >60 Normal >=60 [facility] Comment on above: Performed By: #### D ATTSH, DATBMP #### [facility] [address] [address] [address] Jodi Oglesby EGFR-NON AF [place] >60 Normal >=60 [facility] Comment on above: Performed By: #### D ATTSH, DATBMP #### [facility] [address] [address] [address] Jodi Oglesby Glucose [Mass/Vol] 116 mg/dL Critically high 74-106 [facility] Comment on above: Performed By: #### D ATTSH, DATBMP #### [facility] [address] [address] [address] Jodi Oglesby HDL NORMAL > or = 60 mg/dl - LO W CARDIOVASCULAR RISK <40 mg/dl - HIGH CARDIOVASCULAR RISK Normal [facility] Comment on above: Performed By: #### D ATTSH, DATBMP #### [facility] [address] [address] [address] Jodi Oglesby LDL CALC NORMAL SEE BELOW Normal [facility] Comment on above: Result Comment: <100 mg/dl OPTIMAL 100 - 129 mg/dl NEAR OR ABOVE OPTIMAL 130 - 159 mg/dl BORDERLINE HIGH 160 - 189 mg/dl HIGH >190 mg/dl VERY HIGH Performed By: #### D ATTSH, DATBMP #### [facility] [address] [address] [address] Jodi Oglesby Potassium [Moles/Vol] 4.4 mmol/L Normal 3.5-5.1 [facility] Comment on above: Performed By: #### D ATTKENDELL, DATBMP #### [facility] [address] [place] [address] Dr. Jodi Oglesby Sodium [Moles/Vol] 141 mmol/L Normal 136-145 [facility] Comment on above: Performed By: #### D ATTSH, DATBMP #### [facility] [address] [address] [address] Jodi Oglesby Triglyceride [Mass/Vol] 40 mg/dL Normal <=150 [facility] Comment on above: Performed By: #### D ATTKENDELL, DATBMP #### [facility] [address] [place] [address] Dr. Jodi Oglesby Urea nitrogen [Mass/Vol] 16.0 mg/dL Normal 7.0-18.0 [facility] Comment on above: Performed By: #### D ATTSH, DATBMP #### [facility] [address] [place] [address] Dr. Jodi Oglesby Urea nitrogen/Creatinine [Mass ratio] 16.2 mg/mg Normal [facility] Comment on above: Performed By: #### D ATTSH, DATBMP #### [facility] [address] [place] [address] Dr. Jodi Oglesby VLDL CALC 8.0 mg/dL Normal [facility] Comment on above: Performed By: #### D ATTSH, DATBMP #### [facility] [address] [address] [address] Jodi Oglesby GLYCOHEMOGLOBIN A1Con 2021 ADA RECOMMENDATION SEE BELOW Normal [facility] Comment on above: Result Comment: ADA RECOMMENDED LIMIT 4.0 - 6.0 ADA THERAPEUTIC TARGET < 7.0 ACTION SUGGESTED > 7.0 Performed By: #### D ATA1C #### [facility] [address] [address] [address] Jodi Oglesby Glucose [Mass/Vol] 131 mg/dL Normal [facility] Comment on above: Performed By: #### D ATA1C #### [facility] [address] [address] [address] Jodi Oglesby HbA1c (Bld) [Mass fraction] 6.2 % Normal 4.5-6.2 [facility] Comment on above: Performed By: #### D ATA1C #### [facility] [address] [address] [address] Jodi Oglesby CNOVon 12-11-2020 [facility] Office Visit ([facility] ) -- CHICO BAKER ([id number]) 1940 M Date Time Provider Department 12/11/20 10:45 AM POWER CATHERINE During your visit today, we recorded the following information about you: Pulse Blood pressure Weight Height 60/minute 122/78 67.6 kg 1.702 m Power Catherine MD 12/11/2020 11:17 AM [facility] OUTPATIENT VISIT DATE December 11, 2020 OUTPATIENT VISIT TYPE EST PRIMARY CARE PHYSICIAN: Shailesh Dunham (Jere) [address] [place] [address] REFERRING PHYSICIAN Power Catherine [address] [place] [id number] CHIEF COMPLAINT: Patient presents with: Established Patient [...] Power Catherine MD Referring Provider: POWER CATHERINE [[id number]] Allergies As of Date: 12/11/2020 Noted Allergy Reaction SHALINI INHIBITORS 05/09/2015 16 - Unknown GADOLINIUM-CONTAINING CONTRAST ME*05/09/2015 16 - Unknown TETANUS VACCINES AND TOXOID 05/16/2015 16 - Unknown Date Reviewed: 12/11/2020 Reviewed by: Harika Menjivar - Fully Assessed Reason for Visit: Established Patient [175] Follow Up [171] 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 - nitroglycerin sublingual (NITROQUICK) 0.3 mg SL tablet (more content not included)... Normal [facility] Jessa 10-30-2020 [facility] Telephone ([facility]) -- SAMUELCHICO ([id number]) 1940 M Date Time Provider Department 10/30/20 POWER CATHERINE During your visit today, we recorded the following information about you: Sheri Sandip Arora 10/30/2020 4:49 PM Signed Patient called to schedule his annual apt with dr. Catherine. He said he usually gets testing done first. Please place order. thanks Hariak Menjivar 10/31/2020 8:18 AM Signed Order in [...] [I71.4] Order(s):US ABD AORTA COMPLETE [facility]AS [facility] [[id number]] Order #: [id number] FUTURE Prescriptions as of 11/04/2020 - aspirin, [...] Status:Closed by SHERI MOLINA on 11/04/20 Normal [facility] Vital Signs Date Time Vital Sign Value Performing Clinician Facility 09-03-2023 08:49-0400 Body height 170.18 cm DO [employer] Work Phone: [facility] 09-03-2023 08:49-0400 Body mass index (BMI) [Ratio] 21.9 kg/m2 DO Shailesh Ball Work Phone: [facility] 09-03-2023 08:49-0400 Body weight 63.5 kg DO Shailesh Ball Work Phone: [facility] 09-03-2023 08:49-0400 Diastolic blood pressure 58 mm[Hg] DO Shailesh Ball Work Phone: [facility] 09-03-2023 08:49-0400 Heart rate 63 /min DO Shailesh Ball Work Phone: [facility] 09-03-2023 08:49-0400 Respiratory rate 18 /min DO Shailesh Ball Work Phone: [facility] 09-03-2023 08:49-0400 SaO2% (BldA) [Mass fraction] 97 % DO Shailesh Ball Work Phone: [facility] 09-03-2023 08:49-0400 Systolic blood pressure 110 mm[Hg] DO Shailesh Ball Work Phone: [facility] 08-27-2023 08:33-0400 Body height 170.18 cm DO Shailesh Ball Work Phone: [facility] 08-27-2023 08:33-0400 Body mass index (BMI) [Ratio] 21.7 kg/m2 DO Shailesh Ball Work Phone: [facility] 08-27-2023 08:33-0400 Body weight 62.76 kg DO Shailesh Ball Work Phone: [facility] 08-27-2023 08:33-0400 Diastolic blood pressure 65 mm[Hg] DO Shailesh Ball Work Phone: [facility] 08-27-2023 08:33-0400 Heart rate 64 /min DO Shailesh Ball Work Phone: [facility] 08-27-2023 08:33-0400 Respiratory rate 12 /min DO Shailesh Ball Work Phone: [facility] 08-27-2023 08:33-0400 Systolic blood pressure 132 mm[Hg] DO Shailesh Ball Work Phone: [facility] 08-19-2023 11:18-0400 Body height 170.18 cm DO Shailesh Ball Work Phone: [facility] 08-19-2023 11:18-0400 Body mass index (BMI) [Ratio] 21.9 kg/m2 DO Shailesh Ball Work Phone: [facility] 08-19-2023 11:18-0400 Body weight 63.5 kg DO Shailesh Ball Work Phone: [facility] 08-19-2023 11:18-0400 Diastolic blood pressure 56 mm[Hg] DO Shailesh Ball Work Phone: [facility] 08-19-2023 11:18-0400 Heart rate 60 /min DO Shailesh Ball Work Phone: [facility] 08-19-2023 11:18-0400 Respiratory rate 18 /min DO Shailesh Ball Work Phone: [facility] 08-19-2023 11:18-0400 SaO2% (BldA) [Mass fraction] 98 % DO Shailesh Ball Work Phone: [facility] 08-19-2023 11:18-0400 Systolic blood pressure 102 mm[Hg] DO Shailesh Ball Work Phone: [facility] 07-05-2023 10:23-0400 Body height 170.18 cm DO Shailesh Ball Work Phone: [facility] 07-05-2023 10:23-0400 Body mass index (BMI) [Ratio] 21.4 kg/m2 DO Shailesh Ball Work Phone: [facility] 07-05-2023 10:23-0400 Body temperature 97 [degF] DO Shailesh Ball Work Phone: [facility] 07-05-2023 10:23-0400 Body weight 62.14 kg DO Shailesh Ball Work Phone: [facility] 07-05-2023 10:23-0400 Diastolic blood pressure 48 mm[Hg] DO Shailesh Ball Work Phone: [facility] 07-05-2023 [id number] Heart rate 60 /min DO Shailesh Ball Work Phone: [facility] 07-05-2023 10:23-0400 SaO2% (BldA) [Mass fraction] 97 % DO Shailesh Ball Work Phone: [facility] 07-05-2023 10:23-0400 Systolic blood pressure 96 mm[Hg] DO Shailesh Ball Work Phone: [facility] 06-22-2023 10:010400 Body height 170.18 cm DO Shailesh Ball Work Phone: [facility] 06-22-2023 10:01-0400 Body mass index (BMI) [Ratio] 21.5 kg/m2 DO Shailesh Ball Work Phone: [facility] 06-22-2023 10:010400 Body weight 62.36 kg DO Shailesh Ball Work Phone: [facility] 06-22-2023 10:01-0400 Diastolic blood pressure 69 mm[Hg] DO Shailesh Ball Work Phone: [facility] 06-22-2023 10:01-0400 Heart rate 64 /min DO Shailesh Ball Work Phone: [facility] 06-22-2023 10:01-0400 Respiratory rate 12 /min DO Shailesh Ball Work Phone: [facility] 06-22-2023 10:01-0400 Systolic blood pressure 95 mm[Hg] DO Shailesh Ball Work Phone: [facility] 05-04-2023 11:14-0500 Blood Pressure Location Ivelisse Hassan [facility] 05-04-2023 11:14-0500 Diastolic blood pressure 46 mm[Hg] Ivelisse Lue [facility] 05-04-2023 11:14-0500 Heart rate 63 /min Ivelisse Lue [facility] 05-04-2023 11:14-0500 Systolic blood pressure 116 mm[Hg] Ivelisse Lue [facility] 04-14-2023 10:15-0500 Body height 170.18 cm Shailesh Ball Other [facility] [employer] Other 04-14-2023 10:15-0500 Body mass index (BMI) [Ratio] 21.64 kg/m2 Shailesh Ball Other [facility] [employer] Other 04-14-2023 10:15-0500 Body weight 62.69 kg Shailesh Ball Other [facility] [employer] Other 04-14-2023 10:15-0500 Diastolic blood pressure 58 mm[Hg] Shailesh Ball Other [facility] [employer] Other 04-14-2023 10:15-0500 Respiratory rate 12 /min Shailesh Ball Other [facility] [employer] Other 04-14-2023 10:15-0500 Systolic blood pressure 118 mm[Hg] Shailesh Ball Other [facility] [employer] Other 03-29-2023 10:00-0500 Body height 170.18 cm Shailesh Ball Other [facility] 03-29-2023 10:00-0500 Body mass index (BMI) [Ratio] 21.8 kg/m2 Shailesh Ball Other [facility] [employer] Other 03-29-2023 10:00-0500 Body weight 63.14 kg Shailesh Ball Other [facility] 03-29-2023 10:00-0500 Diastolic blood pressure 74 mm[Hg] Shailesh Ball Other [facility] 03-29-2023 10:00-0500 Respiratory rate 12 /min Shailesh Ball Other [facility] [employer] Other 03-29-2023 10:00-0500 Systolic blood pressure 132 mm[Hg] Shailesh Ball Other [facility] 01-13-2023 08:49-0500 Blood Pressure Location Ivelisse Lue [facility] 01-13-2023 08:49-0500 Diastolic blood pressure 74 mm[Hg] Ivelisse Lue [facility] 01-13-2023 08:49-0500 Heart rate 68 /min Ivelisse Lue [facility] 01-13-2023 08:49-0500 Respiratory rate 16 /min Ivelisse Lue [facility] 01-13-2023 08:49-0500 Systolic blood pressure 156 mm[Hg] Ivelisse Lue [facility] 11-10-2022 10:30-0400 Body height 170.18 cm Raul Quan Other [facility] [employer] Other 11-10-2022 10:30-0400 Body mass index (BMI) [Ratio] 20.99 kg/m2 Raul Quan Other [facility] [employer] Other 11-10-2022 10:30-0400 Body temperature 97.8 [degF] Raul Avelina Other [facility] Other 11-10-2022 10:30-0400 Body weight 60.78 kg Raul Avelina Other [facility] Other 11-10-2022 10:30-0400 Diastolic blood pressure 64 mm[Hg] Raul Quan Other [facility] Other 11-10-2022 10:30-0400 SaO2% (BldA) [Mass fraction] 98 % Raulchristiana Quan Other [facility] Other 11-10-2022 10:30-0400 Systolic blood pressure 110 mm[Hg] Raul Quan Other [facility] Other 10-07-2022 08:49-0400 Blood Pressure Location Ivelisse Lue [facility] 10-07-2022 08:49-0400 Diastolic blood pressure 74 mm[Hg] Ivelisse Lue [facility] 10-07-2022 08:49-0400 Heart rate 75 /min Ivelisse Lue [facility] 10-07-2022 08:49-0400 Systolic blood pressure 139 mm[Hg] Ivelisse Lue [facility] 08-04-2022 11:15-0400 Body height 170.18 cm Raul Quan Other [facility] Other 08-04-2022 11:15-0400 Body mass index (BMI) [Ratio] 21.77 kg/m2 Raul Quan Other [facility] Other 08-04-2022 11:15-0400 Body temperature 97.8 [degF] Raul Quan Other [facility] Other 08-04-2022 11:15-0400 Body weight 63.05 kg Raul Quan Other [facility] Other 08-04-2022 11:15-0400 Diastolic blood pressure 68 mm[Hg] Raul Quan Other [facility] Other 08-04-2022 11:15-0400 SaO2% (BldA) [Mass fraction] 97 % Raul Quan Other [facility] Other 08-04-2022 11:15-0400 Systolic blood pressure 108 mm[Hg] Raul Quan Other [facility] Other 07-09-2022 08:00-0400 Body temperature 98.6 [degF] DO Shailesh Ball Work Phone: [facility] 07-09-2022 08:00-0400 Diastolic blood pressure 72 mm[Hg] DO Shailesh Ball Work Phone: [facility] 07-09-2022 08:00-0400 Heart rate 69 /min DO Shailesh Ball Work Phone: [facility] 07-09-2022 08:00-0400 Respiratory rate 16 /min DO Shailesh Ball Work Phone: [facility] 07-09-2022 08:00-0400 SaO2% (BldA) [Mass fraction] 97 % DO Shailesh Ball Work Phone: [facility] 07-09-2022 08:00-0400 Systolic blood pressure 154 mm[Hg] DO Shailesh Ball Work Phone: [facility] 07-09-2022 06:00-0400 Body weight 65.8 kg DO Shailesh Ball Work Phone: [facility] 07-08-2022 10:52-0400 Inhaled oxygen flow rate 8 L/min DO Shailesh Ball Work Phone: [facility] 07-08-2022 08:34-0400 Body height 167.64 cm DO Shailesh Ball Work Phone: [facility] 07-08-2022 08:34-0400 Body mass index (BMI) [Ratio] 22.7 kg/m2 DO Shailesh Ball Work Phone: [facility] 06-24-2022 09:27-0400 Blood Pressure Location Ivelisse Lue [facility] 06-24-2022 09:27-0400 Diastolic blood pressure 75 mm[Hg] Ivelisse Lue [facility] 06-24-2022 09:27-0400 Heart rate 66 /min Ivelisse Lue [facility] 06-24-2022 09:27-0400 Respiratory rate 16 /min Ivelisse Lue [facility] 06-24-2022 09:27-0400 Systolic blood pressure 120 mm[Hg] Ivelisse Lue [facility] 05-21-2022 09:30-0400 Body height 170.18 cm Shailesh Ball Other [facility] Other 05-21-2022 09:30-0400 Body mass index (BMI) [Ratio] 21.8 kg/m2 Shailesh Ball Other [facility] Other 05-21-2022 09:30-0400 Body weight 63.14 kg Shailesh Ball Other [facility] Other 05-21-2022 09:30-0400 Diastolic blood pressure 73 mm[Hg] Shailesh Ball Other [facility] Other 05-21-2022 09:30-0400 Respiratory rate 12 /min Shailesh Ball Other [facility] Other 05-21-2022 09:30-0400 Systolic blood pressure 121 mm[Hg] Shailesh Ball Other [facility] Other 05-19-2022 11:00-0400 Body height 170.18 cm Tamar Perea Other [facility] Other 05-19-2022 11:00-0400 Body mass index (BMI) [Ratio] 22.02 kg/m2 Tamar Perea Other [facility] Other 05-19-2022 11:00-0400 Body temperature 97.5 [degF] Tamar Perea Other [facility] Other 05-19-2022 11:00-0400 Body weight 63.78 kg Tamar Brit Other [facility] Other 05-19-2022 11:00-0400 Diastolic blood pressure 76 mm[Hg] Tamar Perea Other [facility] Other 05-19-2022 11:00-0400 SaO2% (BldA) [Mass fraction] 98 % Tamar Perea Other [facility] Other 05-19-2022 11:00-0400 Systolic blood pressure 148 mm[Hg] Tamar Perea Other [facility] Other 04-15-2022 08:57-0500 Blood Pressure Location Ivelisse Lue [facility] 04-15-2022 08:57-0500 Diastolic blood pressure 78 mm[Hg] Ivelisse Lue [facility] 04-15-2022 08:57-0500 Heart rate 68 /min Ivelisse Lue [facility] 04-15-2022 08:57-0500 Respiratory rate 16 /min Ivelisse Lue [facility] 04-15-2022 08:57-0500 Systolic blood pressure 122 mm[Hg] Ivelisse Lue [facility] 03-10-2022 11:30-0500 Body height 170.18 cm Raul Quan Other [facility] Other 03-10-2022 11:30-0500 Body mass index (BMI) [Ratio] 21.2 kg/m2 Raul Quan Other [facility] Other 03-10-2022 11:30-0500 Body temperature 97.8 [degF] Raul Quan Other [facility] Other 03-10-2022 11:30-0500 Body weight 61.42 kg Raul Quan Other [facility] Other 03-10-2022 11:30-0500 Diastolic blood pressure 64 mm[Hg] Raul Lawrencerer Other [facility] [employer] Other 03-10-2022 11:30-0500 SaO2% (BldA) [Mass fraction] 98 % Raul Lawrencerer Other [facility] [employer] Other 03-10-2022 11:30-0500 Systolic blood pressure 108 mm[Hg] Raul Lawrencerer Other [facility] [employer] Other 02-25-2022 11:09-0500 Blood Pressure Location IVA ARASH [facility] 02-25-2022 11:09-0500 Diastolic blood pressure 63 mm[Hg] IVA ARASH [facility] 02-25-2022 11:09-0500 Heart rate 64 /min IVA ARASH [facility] 02-25-2022 11:09-0500 Systolic blood pressure 105 mm[Hg] IVA ARASH [facility] 02-18-2022 14:12-0500 Blood Pressure Location IVA ARASH [facility] 02-18-2022 14:12-0500 Diastolic blood pressure 83 mm[Hg] IVA ARASH [facility] 02-18-2022 14:12-0500 Heart rate 70 /min IVA ARASH [facility] 02-18-2022 14:12-0500 Systolic blood pressure 142 mm[Hg] IVA ANTOINE [facility] 02-11-2022 08:42-0500 Blood Pressure Location Ivelisse Lue [facility] 02-11-2022 08:42-0500 Diastolic blood pressure 73 mm[Hg] Ivelisse Lue [facility] 02-11-2022 08:42-0500 Heart rate 68 /min Ivelisse Lue [facility] 02-11-2022 08:42-0500 Respiratory rate 16 /min Ivelisse Lue [facility] 02-11-2022 08:42-0500 Systolic blood pressure 150 mm[Hg] Ivelisse Lue [facility] 02-05-2022 08:00-0500 Body temperature 99.1 [degF] DO Shailesh Ball Work Phone: [facility] 02-05-2022 08:00-0500 Diastolic blood pressure 76 mm[Hg] DO Shailesh Ball Work Phone: [facility] 02-05-2022 08:00-0500 Heart rate 78 /min DO Shailesh Ball Work Phone: [facility] 02-05-2022 08:00-0500 Respiratory rate 16 /min DO Shailesh Ball Work Phone: [facility] 02-05-2022 08:00-0500 SaO2% (BldA) [Mass fraction] 95 % DO Shailesh Ball Work Phone: [facility] 02-05-2022 08:00-0500 Systolic blood pressure 168 mm[Hg] DO Shailesh Ball Work Phone: [facility] 02-05-2022 03:21-0500 Body weight 64.1 kg DO Shailesh Ball Work Phone: [facility] 02-04-2022 11:43-0500 Inhaled oxygen flow rate 6 L/min DO Shailesh Ball Work Phone: [facility] 02-04-2022 09:31-0500 Body height 167.64 cm DO Shailesh Ball Work Phone: [facility] 02-04-2022 09:31-0500 Body mass index (BMI) [Ratio] 23.3 kg/m2 DO Shailesh Ball Work Phone: [facility] 01-20-2022 12:30-0500 Body height 170.18 cm Raul Quan Other [facility] Other 01-20-2022 12:30-0500 Body mass index (BMI) [Ratio] 21.92 kg/m2 Raul Quan Other [facility] Other 01-20-2022 12:30-0500 Body temperature 97.7 [degF] Raul Quan Other [facility] Other 01-20-2022 12:30-0500 Body weight 63.5 kg Raul Quan Other [facility] Other 01-20-2022 12:30-0500 Diastolic blood pressure 64 mm[Hg] Raul Quan Other [facility] Other 01-20-2022 12:30-0500 SaO2% (BldA) [Mass fraction] 99 % Raul Quan Other [facility] Other 01-20-2022 12:30-0500 Systolic blood pressure 116 mm[Hg] Raul Buehrer Other [facility] Other 01-05-2022 11:15-0400 Body height 170.18 cm Raul Buehrer Other [facility] Other 01-05-2022 11:15-0400 Body mass index (BMI) [Ratio] 21.92 kg/m2 Raul Buehrer Other [facility] Other 01-05-2022 11:15-0400 Body temperature 96 [degF] Raul Buehrer Other [facility] Other 01-05-2022 11:15-0400 Body weight 63.5 kg Raul Buehrer Other [facility] Other 01-05-2022 11:15-0400 Diastolic blood pressure 58 mm[Hg] Raul Buehrer Other [facility] Other 01-05-2022 11:15-0400 SaO2% (BldA) [Mass fraction] 99 % Raul Buehrer Other [facility] Other 01-05-2022 11:15-0400 Systolic blood pressure 100 mm[Hg] Raul Buehrer Other [facility] Other 11-24-2021 12:30-0400 Body height 170.18 cm Tamar Perea Other [facility] Other 11-24-2021 12:30-0400 Body mass index (BMI) [Ratio] 21.92 kg/m2 Tamar Perea Other [facility] Other 11-24-2021 12:30-0400 Body temperature 97.5 [degF] Tamar Perea Other [facility] [employer] Other 11-24-2021 12:30-0400 Body weight 63.5 kg Tamar Perea Other [facility] [employer] Other 11-24-2021 12:30-0400 Diastolic blood pressure 50 mm[Hg] Tamar Perea Other [employer] Other 11-24-2021 12:30-0400 SaO2% (BldA) [Mass fraction] 98 % Tamar Perea Other [facility] [employer] Other 11-24-2021 12:30-0400 Systolic blood pressure 96 mm[Hg] Tamar Perea Other [facility] [employer] Other 10-21-2021 07:30-0400 50 1 Shailesh E Ball Work Phone: [facility] [address] [place] Work Phone: Comment on above: [id number] 10-15-2021 08:27-0400 Body height 167.64 cm DO Shailesh Ball Work Phone: [facility] 10-15-2021 08:27-0400 Body temperature 97.7 [degF] DO Shailesh Ball Work Phone: [facility] 10-15-2021 08:27-0400 Body weight 66 kg DO Shailesh Ball Work Phone: [facility] 10-15-2021 08:27-0400 Diastolic blood pressure 75 mm[Hg] DO Shailesh Ball Work Phone: [facility] 10-15-2021 08:27-0400 Heart rate 73 /min DO Shailesh Ball Work Phone: [facility] 10-15-2021 08:27-0400 Respiratory rate 16 /min DO Shailesh Ball Work Phone: [facility] 10-15-2021 08:27-0400 SaO2% (BldA) [Mass fraction] 97 % DO Shailesh Ball Work Phone: [facility] 10-15-2021 08:27-0400 Systolic blood pressure 143 mm[Hg] DO Shailesh Ball Work Phone: [facility] 09-30-2021 13:30-0400 Body height 170.18 cm Tamar Brit Other [facility] Other 09-30-2021 13:30-0400 Body mass index (BMI) [Ratio] 24.27 kg/m2 Tamar Perea Other [facility] Other 09-30-2021 13:30-0400 Body temperature 97.4 [degF] Tamar Martinezmoy Other [facility] Other 09-30-2021 13:30-0400 Body weight 70.31 kg Tamar Martinezmoy Other [facility] Other 09-30-2021 13:30-0400 Diastolic blood pressure 70 mm[Hg] Tamar Perea Other [facility] Other 09-30-2021 13:30-0400 SaO2% (BldA) [Mass fraction] 98 % Tamar Perea Other [facility] Other 09-30-2021 13:30-0400 Systolic blood pressure 140 mm[Hg] Tamar Perea Other [facility] Other 09-15-2021 11:00-0400 Body height 170.18 cm Tamar Perea Other [facility] Other 09-15-2021 11:00-0400 Body mass index (BMI) [Ratio] 24.27 kg/m2 Tamar Perea Other [facility] Other 09-15-2021 11:00-0400 Body temperature 96.4 [degF] Tamar Perea Other [facility] Other 09-15-2021 11:00-0400 Body weight 70.31 kg Tamar Perea Other [facility] Other 09-15-2021 11:00-0400 Diastolic blood pressure 72 mm[Hg] Tamar Perea Other [facility] Other 09-15-2021 11:00-0400 SaO2% (BldA) [Mass fraction] 98 % Tamar Perea Other [facility] Other 09-15-2021 11:00-0400 Systolic blood pressure 138 mm[Hg] Tamar Perea Other [facility] Other 07-28-2021 10:45-0400 Body height 170.18 cm Raul Quan Other [facility] Other 07-28-2021 10:45-0400 Body mass index (BMI) [Ratio] 24.27 kg/m2 Raul Quan Other [facility] Other 07-28-2021 10:45-0400 Body temperature 96.6 [degF] Raul Quan Other [facility] Other 07-28-2021 10:45-0400 Body weight 70.31 kg Raul Osoriojakub Other [facility] Other 07-28-2021 10:45-0400 Diastolic blood pressure 78 mm[Hg] Raul Lawrencemary ann Other [facility] Other 07-28-2021 10:45-0400 SaO2% (BldA) [Mass fraction] 98 % Raul Lawrencemary ann Other [facility] Other 07-28-2021 10:45-0400 Systolic blood pressure 190 mm[Hg] Raul Lawrencemary ann Other [facility] Other Encounters Encounter Date Encounter Type Care Provider Facility Start: 10-12-2023 End: 10-13-2023 Evaluation and management of inpatient [facility] Start: 10-06-2023 End: 10-06-2023 ambulatory [facility] Start: 10-06-2023 End: 10-06-2023 ambulatory [facility] Start: 09-17-2023 ambulatory [facility] Start: 09-03-2023 End: 09-03-2023 ambulatory DO Shailesh Ball Work Phone: [facility] Work Phone: Start: 09-03-2023 End: 09-03-2023 Patient encounter procedure DO Shailesh Ball Work Phone: [facility] Work Phone: Start: 08-31-2023 End: 08-31-2023 Patient encounter procedure DO Shailesh Ball Work Phone: [facility] Work Phone: Start: 08-31-2023 End: 08-31-2023 ambulatory DO Shailesh Ball Work Phone: [facility] Work Phone: Start: 08-27-2023 End: 08-27-2023 ambulatory DO Shailesh Ball Work Phone: [facility] Work Phone: Start: 08-27-2023 End: 08-27-2023 Patient encounter procedure DO Shailesh Ball Work Phone: [facility] Work Phone: Start: 08-19-2023 End: 08-19-2023 ambulatory DO Shailesh Ball Work Phone: [facility] Work Phone: Start: 08-19-2023 End: 08-19-2023 Patient encounter procedure DO Shailesh Ball Work Phone: [facility] Work Phone: Start: 08-18-2023 End: 08-18-2023 ambulatory AMBER Melgoza [facility] Start: 08-18-2023 End: 08-18-2023 ambulatory AMBER Melgoza [facility] Start: 08-17-2023 End: 08-17-2023 ambulatory MARIA EUGNEIA Vazquez [facility] Start: 08-13-2023 End: 08-13-2023 ambulatory MARIA EUGENIA BERRY [facility] Start: 08-04-2023 End: 08-04-2023 ambulatory MARIA EUGENIA Vazquez [facility] Start: 07-27-2023 End: 07-27-2023 ambulatory CLIFTON CORREA Not Available Start: 07-05-2023 End: 07-05-2023 ambulatory DO Shailesh Ball Work Phone: [facility] Work Phone: Start: 07-05-2023 End: 07-05-2023 Patient encounter procedure DO Shailesh Ball Work Phone: [facility] Work Phone: Start: 06-22-2023 End: 06-22-2023 ambulatory DO Shailesh Enrico Work Phone: [facility] Work Phone: Start: 06-22-2023 End: 06-22-2023 Patient encounter procedure DO Shailesh Dunham Work Phone: [facility] Work Phone: Start: 06-16-2023 End: 06-16-2023 Patient encounter procedure DO Shailesh Dunham Work Phone: [facility] [place] Work Phone: Start: 06-16-2023 End: 06-16-2023 ambulatory DO Shailesh Dunham Work Phone: [facility] Work Phone: Start: 05-04-2023 End: 05-05-2023 ambulatory Ivelisse Hassan Facility:[facility] Start: 05-04-2023 End: 05-04-2023 Lab Drop off Ivelisse Hassan [facility] Start: 05-04-2023 End: 05-04-2023 Patient encounter procedure Ivelisse Hassan [facility] Start: 04-28-2023 End: 04-29-2023 ambulatory Ivelisse Hassan Facility:[id number] Start: 04-26-2023 Non-patient / Non-visit DO Ryder raines Ball Work Phone: [facility] Work Phone: Start: 04-20-2023 Non-patient / Non-visit DO Ryder raines Ball Work Phone: [facility] Work Phone: Start: 04-20-2023 Non-patient / Non-visit DO Ryder Dunham Work Phone[facility] Work Phone: Start: 04-14-2023 End: 04-14-2023 ambulatory Shailesh Dunham Other [facility]int Other Start: 04-14-2023 Encounter for other preprocedural examination Shailesh Dunham [facility] Start: 04-14-2023 Office outpatient vi sit 15 minutes Shailesh Dunham [facility] Start: 04-08-2023 End: 04-08-2023 ambulatory Shailesh Dunham Other Cint Other Start: 04-08-2023 Telephone encounter Shailesh AYON [facility] Start: 04-05-2023 End: 04-05-2023 ambulatory Shailesh Dunham Other Cint Other Start: 04-05-2023 Telephone encounter Shailesh AYON [facility] Start: 04-04-2023 End: 04-04-2023 ambulatory Raul Quan Other Cint Other Start: 04-04-2023 Telephone encounter Raul Quan [facility] Start: 03-29-2023 End: 03-29-2023 ambulatory Shailesh Dunham Other Cint Other Start: 03-29-2023 Transitional care ellen sarkar srvc 14 day discharge Shailesh Dunham [facility] Start: 03-29-2023 End: 03-29-2023 Patient encounter procedure DO Shailesh Dunham Work Phone: [facility]- Start: 03-25-2023 End: 03-25-2023 ambulatory Raul Quan Other Cint Other Start: 03-25-2023 Telephone encounter Raul STEPHENSON [facility] Start: 03-24-2023 End: 03-25-2023 ambulatory Ivelisse Hassan Facility:CD:[id number] Start: 01-13-2023 End: 01-14-2023 ambulatory Ivelisse Hassan Facility:[facility] Start: 01-13-2023 End: 01-13-2023 Patient encounter procedure Ivelisse Hassan [facility] Start: 11-10-2022 Office outpatient vi sit 25 minutes Raul Quan [facility] Vascular Surgery Start: 11-10-2022 End: 11-10-2022 Patient encounter procedure DO Shailesh Dunham Work Phone: [facility]Ul[facility] Start: 11-10-2022 End: 11-10-2022 ambulatory DO Shailesh Dunham Work Phone: [facility] Other Start: 10-07-2022 End: 10-08-2022 ambulatory Ivelisse Hassan Facility:[facility] Start: 10-07-2022 End: 10-07-2022 Patient encounter procedure Ivelisse Hassan [facility] Start: 08-04-2022 End: 08-04-2022 ambulatory Raul Quan Other Cint Other Start: 08-04-2022 Postop follow up vis it related to original px Raul Quan [facility] Vascular Surgery Start: 07-28-2022 End: 07-29-2022 ambulatory Ivelisse Hassan Facility:[facility] Start: 07-14-2022 ambulatory Ivelisse Hassan Facility:C [id number] Start: 07-09-2022 End: 07-09-2022 ambulatory Shailesh Dunham Other Cint Other Start: 07-09-2022 Telephone encounter [facility] Start: 07-08-2022 End: 07-08-2022 ambulatory Shailesh Dunham Other Cint Other Start: 07-08-2022 Telephone encounter [facility] Start: 07-08-2022 End: 07-09-2022 Evaluation and management of inpatient DO Shailesh Dunham Work Phone: [facility] [place] [facility] Work Phone: Start: 07-01-2022 End: 07-01-2022 ambulatory DO Shailesh Dunham Work Phone: [facility] Work Phone: Start: 07-01-2022 End: 07-01-2022 Patient encounter procedure DO Shailesh Dunham Work Phone: [facility]Pre-Surgical Testing Work Phone: Start: 06-24-2022 End: 06-25-2022 ambulatory Ivelisse Hassan Facility:[facility] Start: 06-24-2022 End: 06-24-2022 Patient encounter procedure Ivelisse Hassan [facility] Start: 05-21-2022 End: 05-21-2022 ambulatory Shailesh Dunham Other Cint Other Start: 05-21-2022 Patient encounter procedure Shailesh Dunham [facility] Start: 05-19-2022 End: 05-19-2022 ambulatory Tamar Perea Other Cint Other Start: 05-19-2022 Follow-up encounter Tamar Livingston [facility] Start: 05-13-2022 End: 05-13-2022 ambulatory Raul Quan Other Cint Other Start: 05-13-2022 Telephone encounter Raul STEPHENSON [facility] Start: 05-11-2022 End: 05-11-2022 ambulatory DO Shailesh Dunham Work Phone: [facility] Work Phone: Start: 05-11-2022 End: 05-11-2022 Patient encounter procedure DO Shailesh Dunham Work Phone: [facility] [place] Work Phone: Start: 04-23-2022 End: 04-23-2022 ambulatory Raul Quan Other Cint Other Start: 04-23-2022 Telephone encounter Raul Quan [facility] Vascular Surgery Start: 04-15-2022 End: 04-15-2022 Lab Drop off Ivelisse Hassan [facility] Start: 04-15-2022 End: 04-15-2022 Patient encounter procedure Ivelisse Hassan [facility] Start: 04-14-2022 End: 04-14-2022 ambulatory Shailesh Dunham Other Cint Other Start: 04-14-2022 Telephone encounter Shailesh Dunham [facility] Start: 03-10-2022 End: 03-10-2022 ambulatory Raul Stanislawnakul Other Cint Other Start: 03-10-2022 Office outpatient vi sit 25 minutes Raul Quan [facility] Vascular Surgery Start: 02-25-2022 End: 02-25-2022 Patient encounter procedure IVA ANTOINE [facility] Start: 02-18-2022 End: 02-18-2022 Patient encounter procedure IVA ANTOINE [facility] Start: 02-11-2022 End: 02-11-2022 Lab Drop off Ivelisse MSilvestre Hassan [facility] Start: 02-11-2022 End: 02-11-2022 Patient encounter procedure Ivelisse ProrasSilvestre Hymancaleb [facility] Start: 02-10-2022 End: 02-11-2022 ambulatory IVELISSE HASSAN . Facility:[facility] Start: 02-07-2022 Encounter for other preprocedural examination DR RAUL QUAN [facility] Start: 02-07-2022 Encounter for preprocedural laboratory examination DR RAUL QUAN [facility] Start: 02-04-2022 End: 02-05-2022 Evaluation and management of inpatient DO Shailesh Dunham Work Phone: [facility]-[address] [place] [address] Surgical Start: 02-02-2022 End: 02-03-[address] RAUL QUAN Facility:[facility] Start: 02-02-2022 End: 02-03-2022 Encounter for other preprocedural examination DR RAUL QUAN Facility:[facility] Start: 01-20-2022 Office outpatient vi sit 25 minutes Raul Quan [facility] Vascular Surgery Start: 01-20-2022 End: 01-20-2022 ambulatory DO Shailesh Dunham Work Phone: [employer] [facility] [employer] Other Start: 01-20-2022 End: 01-20-2022 Patient encounter procedure DO Shailesh Dunham Work Phone: [facility] V[facility] Start: 01-05-2022 End: 01-05-2022 ambulatory Raul Quan Other Cint Other Start: 01-05-2022 Office outpatient vi sit 25 minutes Raul Quan [facility] Vascular Surgery Start: 12-08-2021 End: 12-09-[address] SHAILESH DUNHAM Facility:[facility] Start: 12-02-2021 End: 12-02-[address] SHAILESH DUNHAM Facility:[facility] Start: 11-24-2021 End: 11-24-2021 ambulatory Tamar Brit Other Cint Other Start: 11-24-2021 Patient encounter procedure Tamar Perea [facility] Vascular Surgery Start: 11-11-2021 End: 11-11-[address] SHAILESH DUNHAM Facility:[facility] Start: 10-26-2021 End: 10-26-[address] SHAILESH DUNHAM Facility:[facility] Start: 10-21-2021 Patient encounter procedure Shailesh Dunham Work Phone: [facility] [address] [place] Work Phone: Start: 10-16-2021 Telephone encounter Judah Vivas MD Work Phone: [facility] DO Work Phone: Start: 10-15-2021 End: 10-15-2021 Evaluation and management of inpatient DO Shailesh Dunham Work Phone: [facility] [place] [facility] Start: 10-13-2021 End: 10-13-2021 Patient encounter procedure DO Shailesh Dunham Work Phone: [facility]Pre[facility]Surgical Testing Start: 10-06-2021 End: 10-06-2021 Patient encounter procedure DO Shailesh Dunham Work Phone: [facility] Start: 09-30-2021 End: 09-30-2021 ambulatory Tamar Brit Other Cint Other Start: 09-30-2021 Encounter for other preprocedural examination Tamar Perea [facility] Vascular Surgery Start: 09-30-2021 Follow-up encounter Tamar Perea [facility] Start: 09-22-2021 End: 09-23-[address] SHAILESH DUNHAM Facility: Start: 09-18-2021 End: 09-18-2021 Patient encounter procedure DO Shailesh Dunham Work Phone: [facility] [place] Start: 09-15-2021 End: 09-15-2021 ambulatory Tamar Perea Other Cint Other Start: 09-15-2021 Follow-up encounter Tamar Perea [facility] Start: 08-27-2021 End: 08-27-2021 Patient encounter procedure DO Shailesh Dunham Work Phone: [facility] Start: 08-12-2021 End: 08-13-[address] TESSIE JONAS Facility: Start: 07-28-2021 End: 07-28-2021 ambulatory Raul Quan Other Cint Other Start: 07-28-2021 Office outpatient ne w 45 minutes Raul Quan [facility] Vascular Surgery Start: 06-13-2020 End: 06-13-2020 Patient encounter procedure Lisandra Cavazosrik Work Phone: [facility] Work Phone: Patient encounter status Judah Harrington MD Work Phone: [facility] DO Work Phone: Procedures Date Procedure Procedure Detail Performing Clinician Start: 06-16-2023 Computed tomography of abdomen and pelvis with contrast DO Shailesh Dunham Work Phone: Start: 05-04-2023 Cystoscopic removal of ureteric stent Ivelisse Hassan Start: 04-28-2023 Cystoscopic insertion of ureteric stent Ivelisse Hassan Start: 11-10-2022 Doppler ultrasonography of bilateral carotid arteries DO Shailesh Mandae Phone: Start: 07-28-2022 Cystourethroscopy with dilation of urethral stricture Ivelisse Hassan Start: 07-08-2022 Insertion of carotid artery stent DO Ryder raines Mandae Phone: Start: 05-11-2022 Computed tomography angiography of abdominal and/or pelvic blood vessel DO Shailesh Mandae Phone: Start: 05-11-2022 CT angiography of head DO Shailesh Mandae Phone: Start: 05-11-2022 CT angiography of neck vessels DO Josué fischer Mandae Phone: Start: 02-10-2022 PSA screening IVELISSE HASSAN . Comment on above: Performed By: #### DATA1C #### [facility] [address] [place] [address] Dr. 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 administration COVID19 NOZA Work Phone: Start: 06-13-2020 SARS-CoV-2 vaccine, 0.5ml NOZA Work Phone: Start: 10-18-2019 Transurethral prostatectomy Ivelisse Hassan Start: 04-06-2019 Cystoscope, device (physical object) Ivelisse Hassan Start: 10-06-2016 Colonoscopy Ivelisse Hassan Comment on above: 2006, 2010 Arthroscopy of knee Ivelisse ellis Catheterization of left heart Ivelisse Hassan Esophagogastroduodenoscopy K britany Hassan Plan of Treatment Date Care Activity Detail Author Start: 09-01-2023 ambulatory Ambulatory Facility:[facility] Start: 08-19-2023 [facility] Start: 07-09-2022 [facility] Start: 07-08-2022 Hospital admission [facility] Start: 07-08-2022 Patient referral to dietitian [facility] Start: 02-05-2022 [facility] Start: 02-04-2022 [facility] Start: 02-04-2022 Hospital admission [facility] Start: 10-21-2021 STRESS NUC, Provider: SAL HHVI NUCLEAR 01,[id number], Status: Pen, Time: 7:30 AM STRESS NUC, Provider: SAL HHVI NUCLEAR 01,[id number], Status: Pen, Time: 7:30 AM [facility] [address] DO Work Phone: Start: 10-15-2021 [facility] Work Phone: Start: 10-15-2021 OR Percutaneous EVAR AAA (Not Applicable) OR Percutaneous EVAR AAA (Not Applicable) [facility] Start: 10-15-2021 End: 10-15-2021 Evaluation and management of inpatient AAA (abdominal aortic aneurysm) [facility]-[address] [place] [address] Surgical Start: 10-13-2021 End: 10-13-2021 Patient encounter procedure Departed Clinical [facility]-Vkh-Rveqdtyo Testing Patient Education [facility] Work Phone: Patient referral [facility] Work Phone: US Gallbladder [facility] Heart limited [facility] US [facility] Thoracic and abdo sebastian aorta [facility] US.doppler Carotid arteries - bilateral [facility] Immunizations Immunization Date Immunization Notes Care Provider David acevedomerlin 06-13-2020 Rodney and Rodney COVID 19 Vaccine [facility] Comment on above: Note: Patient tolera shyann well. No signs or symptoms of adverse reactions. Patient waited a minimum of 15 minutes. NEGATED: Highlighted row has not occurred!01-13-2023 influenza virus vaccine, unspecified formulation Ivelisse Hassan [facility] Payers Date Payer Category Payer Self-pay [id number] 2020 Unknown [id number] 1959 Self-pay [id number] 1959 Unknown [id number] 1959 Unknown [id number] 1959 Unknown [id number] 1942 Unknown [id number] 2.16.84 0.1.207889.3.579.2.593 1942 Unknown [id number] 2.16.84 0.1.957366.3.579.2.593 1942 Unknown [id number] 2.16.84 0.1.594658.3.579.2.593 1942 Unknown [id number] 2.16.84 0.1.753404.3.579.2.593 1942 Unknown [id number] 2.16.84 0.1.890960.3.579.2.593 1942 Unknown [id number] 2.16.84 0.1.087597.3.579.2.593 1942 Unknown [id number] 2.16.84 0.1.903653.3.579.2.593 1942 Unknown [id number] 2.16.8 40.1.201037.3.579.2.727 1942 Unknown [id number] 2.16.8 40.1.231299.3.579.2.727 1942 Unknown [id number] 2.16.8 40.1.111728.3.579.2.727 1942 Unknown [id number] 2.16.8 40.1.312945.3.579.2.727 1942 Unknown [id number] 2.16.8 40.1.852057.3.579.2.727 1942 Unknown [id number] 2.16.8 40.1.655631.3.579.2.727 1942 Unknown [id number] 2.16.8 40.1.768451.3.579.2.727 1942 Unknown [id number] 2.16.8 40.1.548333.3.579.2.727 1942 Unknown [id number] 2.16.8 40.1.388175.3.579.2.727 1942 Unknown [id number] 2.16.84 0.1.560365.3.579.2.1259 Unknown Unknown [place] [employer] [place] [id number] Unknown [id number] 2.16.84 0.1.732155.3.579.2.593 Unknown [id number] 2.16.8 40.1.588589.3.579.2.531 Unknown [id number] 2.16.8 40.1.201547.3.579.2.531 Unknown [id number] 2.16.8 40.1.016494.3.579.2.531 Social History Date Type Detail Facility Tobacco smoking status Unknown i f ever smoked [facility] Work Phone: Start: 03-08-1955 End: 03-08-1996 Sex Assigned At [facility] Start: 10-15-2021 End: 08-19-2023 Tobacco smoking status NHIS Ex-smoker (finding) [facility] Start: 1940 Sex Assigned At Male F [facility] Tobacco smoking status Never [facility] Medical Equipment Procedure Code Equipment Code Equipment Origin al Text Equipment Identifier Dates Transcarotid artery revascularization (TCAR) Bare-metal carotid artery stent ()[id number] FDA Start: 07-08-2022 Transcarotid artery revascularization (TCAR) Bare-metal carotid artery stent ()[id number] FDA Start: 07-08-2022 Percutaneous endovascular repair of abdominal aortic aneurysm (AAA) Abdominal aorta endovascular stent-graft ()[id number] FDA Start: 02-04-2022 Percutaneous endovascular repair of abdominal aortic aneurysm (AAA) Abdominal aorta endovascular stent-graft ()[id number] FDA Start: 02-04-2022 Percutaneous endovascular repair of abdominal aortic aneurysm (AAA) Abdominal aorta endovascular stent-graft ()[id number] FDA Start: 02-04-2022 Goals Date Patient Goal Desired Activity /State Functional Status Date Assessment Result Facility 05-04-2023 Functional Status N/A [facility] 01-13-2023 Functional Status N/A [facility] 10-07-2022 Functional Status N/A [facility] 07-09-2022 Functional status Patient is Pro gressing Toward Baseline [facility] Work Phone: 06-24-2022 Functional Status N/A [facility] 04-15-2022 Functional Status N/A [facility] 02-25-2022 Functional Status N/A [facility] 02-18-2022 Functional Status N/A [facility] 02-11-2022 Functional Status N/A [facility] 02-05-2022 Functional status Patient at Baseline [facility] Work Phone: 10-15-2021 Functional status Patient at Baseline [facility] Work Phone: Mental Status Date Assessment Result Facility 07-09-2022 Cognitive function Cognitive Sta tus Patient is Progressing Toward Baseline [facility] Work Phone: 02-05-2022 Cognitive function Cognitive Sta tus Patient at Baseline [facility] Work Phone: 10-15-2021 Cognitive function Cognitive Sta tus Patient at Baseline [facility] Work Phone: Clinical Notes 04-18-2020 [...] No Pharmacy Bedside Delivery Status Not Interested ([facility] in [place]) Does the patient have a case consultant assigned to them through their insurance? No [...] to return home no needs at discharge. [facility] 10-13-2023 Note B Surgery Attendin g Patient [...] in approximately 2 weeks Amber Bryant MD [facility] 10-12-2023 Note Patient: Chico hidalgo Procedure Summary Date: 10/12/23 Room / Location: [facility] OPERATING ROOM 13 / [facility] Operating Room Anesthesia Start: 0949 Anesthesia Stop: [...] per anesthesia protocol. No notable events documented. [facility] 10-12-2023 Note Patient: Chico hidalgo Procedure Summary Date: 10/12/23 Room / Location: [facility] OPERATING ROOM 13 / [facility] Operating Room Anesthesia Start: 948 Anesthesia Stop: [...] and follow verbal commands throughout transport process [facility] 10-12-2023 Note Arterial Line: Date/Time: 10/12/2023 11:49 [...] procedure well with no complications. Staffing Performed: resident/CLINICAL SUPPORT ASSOCIATE/CAA and anesthesiologist Anesthesiologist: Kathi Lyons MD Resident/CLINICAL SUPPORT ASSOCIATE: Marcial Alvarado MD Performed by: Marcial Alvarado MD Authorized by: Kathi Lyons MD [facility] 10-12-2023 Note Airway Date/Time: 10/12/2023 10:03 AM Urgency: elective Airway not difficult General Information and Staff Patient location during procedure: OR Resident/CLINICAL SUPPORT ASSOCIATE/CAA: Marcial Alvarado MD Performed: resident/CLINICAL SUPPORT ASSOCIATE/CAA Learner assisted: Michell Castillo MS4 Indications [...] 21 Number of attempts at approach: 1 [facility] 10-06-2023 Note SURGERY FOLLOWUP NOT E Amber [...] ???F), temperature so (more content not included)... 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 Additional Equipment Requests [facility] 08-18-2023 Note HEPATOBILIARY & PANC REAS SURGERY [...] Smokeless tobacco: Never (more content not included)... [facility] 08-13-2023 Note The patient is a ple [...] fall with right femoral ORIF while playing [employer] Abdominal aortic stent Left carotid artery stent [...] of a gallbladder malignancy. Will send to [facility] to see if the actual film from [...] bed and lymph node evaluation as well. [facility] 05-04-2023 Hospital Discharge instructions Patient Education 05/04/2023 [...] include: ?8 oz (237 mL) of milk, hcuqjuz-lrfofrzqkjbo-tivwk milk, and calcium-fortifiedfruit juice. Calcium-fortified means that [...] ?Spinach (cooked), rhubarb, beets, sweet potatoes, and [place] chard. ?Peanuts. ?Potato chips, south sudanese fries, and baked potatoes with skin on. ?Nuts and nut products. ?Chocolate. If you regularly take a diuretic medicine, make sure to eat at least 1 or 2 servings of fruits or vegetables that are high in potassium each day. These include: ?Avocado. ?Banana. ?[place], prune, carrot, or tomato juice. ?Baked potato. [...] magnesium, fish oil, or vitamin B6. Take ljmw-oqo-obleitd and prescription medicines only as told by [...] Casseroles. Pizza. Lasagna. Frozen meals. Potato chips. Stateless fries. The items listed above may not [...] provider. Document Revised: 06/04/2022 Document Reviewed: 06/04/2022 [employer] Patient Education 2022 [employer] Follow Up Care 04/29/2023 08:42:17 With:Mo LEIJA, Ievlisse Schreiber URErasmo, URO Address: When:Within 4 Month(s) Comments:w/KEDAR [facility] [place] 04-14-2023 Evaluation note Encounter Date Diagnosis Assessment [...] this time and surgery could be scheduled. [facility] Other 02-07-2024 Evaluation note* Encounter Date Diagnosis [...] control to proceed with his next procedure. [facility] Other 02-01-2024 Evaluation note* Encounter Date Diagnosis Assessment Notes Treatment Notes Treatment Clinical Notes Apr, Primary hypertension (ICD-10 - I10) [facility] Other 01-29-2024 Evaluation note* Encounter Date Diagnosis Assessment Notes Treatment Notes Treatment Clinical Notes Mar, Primary hypertension (ICD-10 - I10) [facility] Other 01-28-2024 Evaluation note* Encounter Date Diagnosis Assessment Notes Treatment Notes Treatment Clinical Notes Mar, Primary hypertension (ICD-10 - I10) [facility] Other 01-22-2024 Evaluation note* Encounter Date Diagnosis [...] has resolved INstructed on increasing fluids [employer] Other 11-08-2023 Hospital Discharge instructions Patient Education [...] urethra. Follow these instructions at home: Take mqgm-trs-htivtqo and prescription medicines only as told by [...] provider. Document Revised: 09/10/2021 Document Reviewed: 09/10/2021 [employer] Patient Education 2022 [employer] Follow Up Care 10/07/2022 09:26:45 With:Mo LEIJA, AKILAH Smith, URO Address: When: Unknown [facility] 09-05-2023 Evaluation note* Encounter Date Diagnosis [...] in the office with a CT scan. [facility] Other 08-02-2023 Hospital Discharge instructions Patient Education [...] urethra. Follow these instructions at home: Take hccm-rmg-jcndmil and prescription medicines only as told by [...] provider. Document Revised: 09/10/2021 Document Reviewed: 09/10/2021 [employer] Patient Education 2022 [employer] Follow Up Care 07/28/2022 10:29:31 With:Mo LEIJA, AKILAH Smith, URO Address: When:Within 3 Day(s) [facility] 05-30-2023 Evaluation note* Encounter Date Diagnosis [...] a couple of weeks. These have resolved. Cint Other 05-04-2023 Discharge summary Author Raul Quan [facility] July 09, 2022 12:08pm Note Date/Time July 09, 2022 8:07am [facility] [address] [place] [address] Discharge Summary Signed Patient: Chico Baker MR#: [id number] : 1940 Acct:[id number] Age/Sex: 82 / M Adm Date: 3 Loc: Room: [address] [place] [address]: Raul Quan MD Copies to: [...] midline, neck is supple, no JVD. 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 He has a little [...] <Electronically signed by MD Raul Quan> 07/09/22 1209 [facility] Work Phone: 1(440) 655-958005-03-2023 History and physical note Author Raul Quan [facility] July 08, 2022 11:06am Note Date/Time July 08, 2022 11:06a m [facility] [address] [place] [address] Vascular Surgery H&P Signed Patient: Chico Baker MR#: [id number] : 1940 Acct:[id number] Age/Sex: 82 / M Adm Date: 3 Loc: Room: [address] [place] [address] Type: ADM IN Attending Dr: Raul Quan [...] signed by MD Raul Quan> 07/08/22 1106 [facility] Work Phone: 1(586) 893-552104-19-2023 Hospital Discharge instructions Patient Education 06/24/2022 09:42:41 [...] Follow these instructions at home: Medicines Take itco-hol-jgdycsh and prescription medicines only as told by [...] or the blood stops without treatment. Take zldx-ray-wpsiktq and prescription medicines only as told by your health care provider. Drink enough fluid to keep your urine pale yellow. This information is not intended to replace advice given to you by your health care provider. Make sure you discuss any questions you have with your health care provider. Document Revised: 10/23/2020 Document Reviewed: 10/23/2020 [employer] Patient Education 2022 [employer]. 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 Walk daily Inspect feet daily for cuts Cint Other 03-14-2023 Evaluation note* Encounter Date Diagnosis [...] left TCAR procedure once he returns from [place] at the end of June beginning of [...] agree with plan, and denies any questions. Cint Other 03-08-2023 Evaluation note* Encounter Date Diagnosis Assessment Notes Treatment Notes Treatment Clinical Notes May, Carotid stenosis, bilateral (ICD-10 - I65.23) CTA: < 50% right, 80% left Cint Other 03-08-2023 Evaluation note* Encounter Date Diagnosis Assessment Notes Treatment Notes Treatment Clinical Notes May, Carotid stenosis, bilateral (ICD-10 - I65.23) CTA: < 50% right, 70% left - 05/2022 Cint Other 02-08-2023 Hospital Discharge instructions Patient Education [...] prostate. Follow these instructions at home: Take rgro-xdq-muweuvd and prescription medicines only as told by [...] 02/19/2001 Document Revised: 05/07/2018 Document Reviewed: 11/12/2016 [employer] Patient Education 2020 [employer]. Follow Up Care 02/11/2022 10:55:52 With:Mo LEIJA, AKILAH Smith, URO Address: When: Unknown [facility] 02-07-2023 Evaluation note* Encounter Date Diagnosis Assessment Notes Treatment Notes Treatment Clinical Notes Apr, Primary hypertension (ICD-10 - I10) Cint Other 01-03-2023 Evaluation note* Encounter Date Diagnosis [...] to perform simultaneously to minimize contrast exposure. Cint Other 12-21-2022 Hospital Discharge instructions Patient Education 02/25/2022 12:02:33 Rash, Adult, Eywp-gz-Logl Rash, Adult A rash is a change [...] with your condition: Medicine Take or apply vxgb-rsq-yfckbwh and prescription medicines only as told by [...] the rash from spreading. Take or apply ndhj-qfi-iaafkez and prescription medicines only as told by [...] 08/10/2008 Document Revised: 06/16/2019 Document Reviewed: 09/26/2018 [employer] Patient Education 2019 [employer]. Follow Up Care 02/18/2022 14:33:21 With:Ivelisse Hassan Address:Unknown When: Unknown Comments:Appointment has already been scheduled [facility] 12-14-2022 Hospital Discharge instructions Patient Education [...] including vitamins, herbs, eye drops, creams, and vwdx-dlf-bfjmorq medicines. Any problems you or family members [...] provider tells you to take them. Taking ibhu-jaf-eadgmvd medicines, vitamins, herbs, and supplements. Eating and [...] 02/22/2006 Document Revised: 06/14/2019 Document Reviewed: 11/23/2018 [employer] Patient Education 2020 [employer]. Follow Up Care 02/17/2022 16:33:06 With:ARASH BUCHANAN, IVA Ellis, URL Address: [address] [place] [address]. [place] [address] [phone] When:02/25/2022 [facility] 12-07-2022 Hospital Discharge instructions Patient Education [...] prostate. Follow these instructions at home: Take lcud-xkf-uhmvpgz and prescription medicines only as told by [...] 02/19/2001 Document Revised: 05/07/2018 Document Reviewed: 11/12/2016 [employer] Patient Education 2020 [employer] Follow Up Care 01/28/2021 10:15:04 With:Mo LEIJA, AKILAH Smith, URO Address: When:6 weeks [facility] 12-01-2022 Discharge summary Author Raul Quan [facility] February 05, 2022 10:08am Note Date/Time February 05, 2022 7 :52am [facility] [address] [place] [address] Discharge Summary Signed Patient: Chico Baker MR#: [id number] : 1940 Acct:[id number] Age/Sex: 81 / M Adm Date: 2 Loc: N Room: 2V8209-[address]: Raul Quan MD Copies to: [...] % (Auto) 69.5, Lymph % (Auto) 14.4, [place] % (Auto) 14.8, Eos % (Auto) 0.7, Baso % (Auto) 0.6, Nucleat RBC Rel Count 0.1, Neut # (Auto) 7.1, Lymph # (Auto) 1.5, [place] # (Auto) 1.5 H, Eos # (Auto) 0.1, Baso # (Auto) 0.1 02/04/22 08:25: Corrected WBC 9.3, Uncorrected WBC Count 9.3, RBC 4.10, Hgb 12.4L, Hct 37.5 L, MCV 91.5, MCH 30.2, MCHC 33.0, RDW 13.7, Plt Count 198, MPV 8.5, Neut % (Auto) 70.1, Lymph % (Auto) 16.4, [place] % (Auto) 12.0, Eos % (Auto) 0.9, Baso % (Auto) 0.6, Nucleat RBC Rel Count 0.0, Neut # (Auto) 6.5, Lymph # (Auto) 1.5, [place] # (Auto) 1.1 H, Eos # (Auto) [...] signed by MD Raul Quan> 02/05/22 1008 [facility] Work Phone: 1(110) 161-492411-15-2022 Evaluation note* Encounter Date Diagnosis Assessment Notes [...] we will evaluate him for left TCAR. Cint Other 10-31-2022 Evaluation note* Encounter Date Diagnosis [...] complete and CT confirms candidacy for TCAR Cint Other 09-19-2022 Evaluation note* Encounter Date Diagnosis Assessment Notes Treatment Notes Treatment Clinical Notes Nov, AAA (abdominal aortic aneurysm) without rupture (ICD-10 - I71.4) This patient is still recovering from his recent orthopedic procedures. He continues with physical therapy and although he is getting stronger, he remains quite fatigued and weak yet. He has an upcoming appointment with his clinical account specialist for preoperative risk assessment and stratification this next week. We will give him a few more weeks of physical therapy and have him back in a month or so to reschedule his AAA. He did tell me that he had some abdominal pain while in the longterm facility and was taken to the [facility] where a CT of the abdomen was obtained. We will get these studies pushed over for review and comparison. He denies any abdominal pain today and tells me his appetite is pretty good. He knows to call us in the meantime with any issues. Cint Other 07-26-2022 Evaluation note* Encounter Date Diagnosis [...] agrees with this plan, denies any questions. Cint Other 07-11-2022 Evaluation note* Encounter Date Diagnosis [...] agrees with this plan, and denies questions. Cint Other 07-11-2022 Evaluation note* Encounter Date Diagnosis [...] agrees with this plan, and denies questions. Cint Other 05-23-2022 Evaluation note* Encounter Date Diagnosis [...] returns we will get baseline ankle-brachial indices. Cint Other 10-06-2021 NoteHNO ID: [id number] Author: Power Catherine MD Service: ? Author Type: Physician Type: Progress Notes Filed: 12/11/2020 11:17 AM Note Text: [facility] OUTPATIENT VISIT DATE December 11, 2020 OUTPATIENT VISIT TYPE EST PRIMARY CARE PHYSICIAN: Shailesh Dunham (Jere) [address] [place] [address] REFERRING PHYSICIAN Power Catherine [address] [facility] [address] CHIEF COMPLAINT: Patient presents with: Established Patient [...] up. Continue statin therapy. ? Power Catherine, [facility]02-11-2021 NotePatient Outreach (COVAMN) SAMUELCHICO Abad ([id number]) 1940 M Date Time Provider Department 04/18/20 RONALDSKIMBERLEY During your visit today, we recorded the following information about you: Allergies As of Date: 04/18/2020 Noted Allergy Reaction SHALINI INHIBITORS 05/09/2015 16 - Unknown GADOLINIUM-CONTAINING CONTRAST ME*05/09/2015 16 - Unknown TETANUS VACCINES AND TOXOID 05/16/2015 16 - Unknown Date Reviewed: 10/18/2017 Reviewed by: Power Catherine - Fully Assessed Order(s):SARS-COVID VACCINE 1ST DOSE APPT [[id number]] Order #: [id number] FUTURE Prescriptions as of 04/18/2020 Sig: ASPIRIN [...] (None) Encounter Status:Closed by ISIDORO JOHNSON on 04/22/20[facility] Evaluation + Plan note Future Appointments Appointment Date:04/15/2022 08:45:00 AM Scheduled Provider:Ivelisse Hassan MD Location:[facility] Appointment Type:URO Office Visit [facility] evaluation + Plan note Future Appointments Appointment Date:04/15/2022 08:45:00 AM Scheduled Provider:Ivelisse Hassan MD Location:[facility] Appointment Type:URO Office Visit Diagnostic Tests Pending * Urine [facility]ments Appointment Date:02/25/2022 11:00:00 AM Scheduled Provider:IVA ANTOINE PA-C Location:[facility] Appointment Type:URO Office Visit Appointment Date:04/15/2022 08:45:00 AM Scheduled Provider:Ivelisse Hassan MD Location:[facility] Appointment Type:URO Office Visit [facility] evaluation + Plan note Future Appointments Appointment Date:06/24/2022 09:30:00 AM Scheduled Provider:Ivelisse Hassan MD Location:[facility] Appointment Type:URO Office Visit [facility] evaluation + Plan note Future Appointments Appointment Date:01/13/2023 09:00:00 AM Scheduled Provider:Ivelisse Hassan MD Location:[facility] Appointment Type:URO Office Visit [facility] evaluation + Plan note Future Appointments Appointment Date:09/01/2023 11:00:00 AM Scheduled Provider:Ivelisse Hassan MD Location:[facility] Appointment Type:URO Office Visit [facility] Evaluation + Plan note Future Appointments Appointment Date:09/01/2023 11:00:00 AM Scheduled Provider:Ivelisse Hassan MD Location:[facility] Appointment Type:URO Office Visit Diagnostic Tests Pending * Calculi Analysis Urinary [facility]04[facility]23 [facility] Diagnosis Onset Date Resolution Status AAA (abdominal aortic aneurysm) acute [facility] Work Phone: Evaluation noteNo assessment information available [facility] Work Phone: evaluation noteNo InformationNort Changers Other evaluation note* Diagnosis Onset Date Resolution Status Left carotid stenosis acute [facility] Work Phone: evaluation note* Diagnosis Onset Date Resolution Status Hypercholesterolemia acute IFG (impaired fasting glucose) acute Kidney stones acute Nonrheumatic aortic (valve) stenosis acute Peripheral artery disease ac [place] Primary hypertension acute [facility] Work Phone: evaluation note* Diagnosis Onset Date Resolution Status Gallbladder polyp acute Hypercholesterolemia acute IFG (impaired fasting glucose) acute Nonrheumatic aortic (valve) stenosis acute Paget's disease of bony pelvis acute Peripheral artery disease ac [place] Primary hypertension acute [facility] Work Phone: evaluation note* Diagnosis Onset Date Resolution Status Gallbladder polyp acute Hypercholesterolemia acute IFG (impaired fasting glucose) acute Nonrheumatic aortic (valve) stenosis acute Paget's disease of bony pelvis acute Peripheral artery disease ac [place] Primary hypertension acute AAA (abdominal aortic aneurysm) without rupture acute [facility] Work Phone: Evaluation note* Diagnosis Onset Date Resolution Status Gallbladder polyp acute Hypercholesterolemia acute IFG (impaired fasting glucose) acute Nonrheumatic aortic (valve) stenosis acute Paget's disease of bony pelvis acute Peripheral artery disease ac [place] Primary hypertension acute AAA (abdominal aortic aneurysm) without rupture acute AAA (abdominal aortic aneurysm) without rupture acute Benign prostatic hyperplasia with lower urinary tract symptoms acute Gallbladder polyp acute Hypercholesterolemia acute Mass of gallbladder acute Nonrheumatic aortic (valve) stenosis acute Paget's disease of bony pelvis acute Peripheral artery disease ac [place] Primary hypertension acute [facility] Work Phone: Evaluation note* Diagnosis Onset Date Resolution Status Hypercholesterolemia acute IFG (impaired fasting glucose) acute Nonrheumatic aortic (valve) stenosis acute Paget's disease of bony pelvis acute Peripheral artery disease ac [place] Primary hypertension acute AAA (abdominal aortic aneurysm) without rupture acute AAA (abdominal aortic aneurysm) without rupture acute Benign prostatic hyperplasia with lower urinary tract symptoms acute Hypercholesterolemia acute Mass of gallbladder acute Nonrheumatic aortic (valve) stenosis acute Paget's disease of bony pelvis acute Peripheral artery disease ac [place] Primary hypertension acute AAA (abdominal aortic aneurysm) without rupture acute Hypercholesterolemia acute IFG (impaired fasting glucose) acute Mass of gallbladder acute Nonrheumatic aortic (valve) stenosis acute Peripheral artery disease ac [place] Primary hypertension acute Preop exam for internal medicine noneactive [facility] Work Phone: Evaluation note* Diagnosis Onset Date Resolution Status Hypercholesterolemia acute IFG (impaired fasting glucose) acute Nonrheumatic aortic (valve) stenosis acute Paget's disease of bony pelvis acute Peripheral artery disease ac [place] Primary hypertension acute AAA (abdominal aortic aneurysm) without rupture acute AAA (abdominal aortic aneurysm) without rupture acute Benign prostatic hyperplasia with lower urinary tract symptoms acute Hypercholesterolemia acute Mass of gallbladder acute Nonrheumatic aortic (valve) stenosis acute Paget's disease of bony pelvis acute Peripheral artery disease ac [place] Primary hypertension acute AAA (abdominal aortic aneurysm) without rupture acute Hypercholesterolemia acute IFG (impaired fasting glucose) acute Mass of gallbladder acute Nonrheumatic aortic (valve) stenosis acute Peripheral artery disease [facility] Primary hypertension acute Preop exam for internal medicine noneactive AAA (abdominal aortic aneurysm) without rupture acute Benign prostatic hyperplasia with lower urinary tract symptoms acute Hypercholesterolemia acute Mass of gallbladder acute Nonrheumatic aortic (valve) stenosis acute Paget's disease of bony pelvis acute Peripheral artery disease ac [place] Primary hypertension acute [facility] Work Phone: History general Narrative - Reported* Type Description Date Medical History hypercholesterolemia Medical History abdominal aortic aneurysm Medical History Carotid stenosis Medical History PAD Surgical History TURP Surgical History knee arthroscopy LEFT Surgical History Vein stripping Hospitalization History See Above Cint Other History general Narrative - Reported* Type Description Date Medical History hypercholesterolemia Medical History abdominal aortic aneurysm Medical History Carotid stenosis Medical History PAD Surgical History TURP Surgical History knee arthroscopy LEFT Surgical History Vein stripping Surgical History RT FEMUR FX WITH ARABELLA PLACEMENT Hospitalization History See Above Cint Other Hismhtz general Narrative - Reported* Type Description Date Medical History hypercholesterolemia Medical History abdominal aortic aneurysm Medical History Carotid stenosis Medical History PAD Medical History [ ] Surgical History TURP Surgical History knee arthroscopy LEFT Surgical History Vein stripping Surgical History RT FEMUR FX WITH ARABELLA PLACEMENT Surgical History EVAR 02/04/2022 Surgical History [ ] Hospitalization History See Above Cint Other history general Narrative - Reported* Type [...] History COLONOSCOPY 2019 Hospitalization History See Above Cint Other Hisntdg general Narrative - Reported* Type Description Date [...] Left TCAR 07/2022 Hospitalization History See Above Cint Other Hisdeea general Narrative - Reported* Type Description Date [...] Left TCAR 07/2022 Hospitalization History See Above Cint Other Hislngy general Narrative - Reported* Type Description Date [...] left ESWL 03/2023 Hospitalization History See Above Cint Other Hospital course Narrative No data available for this section [facility] Discharge instructions No data available for this section [facility] Author Raul Quan [facility] October 15, 2021 4:31pm Note Date/Time October 15, 2021 4: 31pm [facility] [address] [place] [address] Vascular Surgery Progress Note Signed Patient: Chico Baker MR#: [id number] : 1940 Acct:[id number] Age/Sex: 81 / M Adm Date: 2 Loc: 4N Room: [address] [place] [address] Type: DIS IN Attending Dr: Raul Quan [...] with evaluation here. I will contact [facility] to performoutpatient cardiac evaluation and then he will be rescheduled when he is cleared. Code(s): I71.4 - Abdominal aortic aneurysm, without rupture Status: Acute Documented By: Raul Quan MD 10/15/21 162 9 Signed By: <Electronically signed by MD Raul Quan> 10/15/21 1631 [facility] Work Phone: progress note Author Pb Zurita [facility] October 16, 2021 5:41am Note Date/Time October 16, 2021 5: 41am [facility] [address] [place] [address] Anesthesia Progress Note Signed Patient: Chico Baker MR#: [id number] : 1940 Acct:[id number] Age/Sex: 81 / M Adm Date: 2 Loc: 4N Room: [address] [place] [address] Type: DIS IN Attending Dr: Raul Quan MD Copies to: ~ Anesthesia Progress Note Narrative Narrative: Patient for EVAR today for 5+ centimeter infrarenal AAA. Past medical history hypertension, moderate aortic stenosis, and coronary artery disease. Review of medical records and discussion with indicates patient had stress test 2009 positive for infarct and ischemia at which time he was referred to [facility] and had cardiac cath. Medical management was apparently chosen. No interval events,testing, or intervention. Patient has been asymptomatic but sedentary and poor historian. Advised patient and family to see clinical account specialist for consideration of preop stress testing. Discussed with surgeon Documented By: Pb Zurita MD 10/16/21 0535 Signed By: <Electronically signed by Pb Zurita MD> 10/16/21 0509 [facility] Work Phone: Progrdtn note No data available for this section [facility] Reason for Referral No Reason for [...] Complaint i71.4 BP check S/P EVAR; [facility] Nonrheumatic aortic stenosis Reason for Visit Gallbladder [...] Complaint i71.4 BP check S/P EVAR; [facility] Nonrheumatic aortic stenosis sugical clearance, gall bladder [...] Complaint i71.4 BP check S/P EVAR; [facility] Nonrheumatic aortic stenosis sugical clearance, gall bladder [...] Complaint i71.4 BP check S/P EVAR; [facility] Nonrheumatic aortic stenosis sugical clearance, gall bladder [...] section and content) DATE CREATED AUTHOR 04/02/2021 [facility] DATE CREATED AUTHOR AUTHOR'S ORGANIZ ATION 10/28/2021 [facility] DATE CREATED AUTHOR AUTHOR'S ORGANIZ ATION 04/14/2022 [facility] DATE CREATED AUTHOR AUTHOR'S ORGANIZ ATION 05/13/2023 [facility] DATE CREATED AUTHOR AUTHOR'S ORGANIZ ATION 07/29/2023 [facility] EPIC DATE CREATED AUTHOR AUTHOR'S ORGANIZ ATION 09/08/2023 [facility] DATE CREATED AUTHOR AUTHOR'S ORGANIZ ATION 10/14/2023 [facility] REASON FOR VISIT (unrecogniz ed section and content) REF BY DR DUNHAM FOR AAA, PAD AND CAROTID STENOSIS, Needs a new vascular surgeon7 WK FOLLOW UP; SHYANNE'S, ABDOMINAL, CAROTID WK FOLLOW UP; SHAYNNE'S, ABDOMINAL, CAROTID 08/27/21FOLLOW UP AFTER CTA [facility]YE [...] Member Role Status Dates Sheri Christiansen MD Info Analyst Active Shailesh Dunham DO Primary Care Provider [...] BE BASED ON THE PRIMARY CLINICAL RECORDS. [employer] [facility]. provides no warranty or guarantee of the accuracy or completeness of information in this document.
--- NOTE | 2023-10-15 18:05 | P.CACN_ITS ---
History of Present Illness History of Present Illness Consult date: 10/15/23 Requesting physician: Shaikh Agustina Chief complaint: SHORTNESS OF BREATH/ CHEST PAIN, a-fib w/rvr Narrative: 83 yo male with past medical history including HTN, HLD, moderate , carotid s tenosis, and AAA s/p repair who presented to the hospital several days post op with complaints of shortness of breath and some chest discomfort. Patient was found to be in afib with RVR. He was started on cardizem and converted to NSR. Cardiology was asked to assess patient. Today, patient states that he is doing well. He denies any cardiac complaints or concerns at the present time. No chest pain. Shortness of breath has resolved. No lower extremity edema, orthopnea, or PND. No additional complaints. No previous cardiac history per patient. No history of ID or PCI. Review of Systems ROS Status of ROS 10 or more systems reviewed and unremark able except as noted in history and below [facility] Medical History (Updated 10/14/23 @ 16:50 by Shaikh Agustina MD) Clavicular fracture ?S42.009A - Fracture of unspecified part of unspecified clavicle, initial encounter for closed fracture (ICD-10) Presence of internal carotid stent (~07/2022) ?Z95.828 - Presence of other vascular implants and grafts (ICD-10) Aortic valve stenosis ?I35.0 - Nonrheumatic aortic (valve) stenosis (ICD-10) Heart murmur ?R01.1 - Cardiac murmur, unspecified (ICD-10) Carotid stenosis ?I65.29 - Occlusion and stenosis of unspecified carotid artery (ICD-10) Anemia ?D64.9 - Anemia, unspecified (ICD-10) Femur fracture (~10/2021) ?S72.90XA - Unspecified fracture of unspecified femur, initial encounter for closed fracture (ICD-10) AAA (abdominal aortic aneurysm) ?I71.40 - Abdominal aortic aneurysm, without rupture, unspecified (ICD-10) Heartburn ?R12 - Heartburn (ICD-10) Delayed recovery from anesthesia Urethral stricture ?N35.919 - Unspecified urethral stricture, male, unspecified site (ICD-10) Post-void dribbling ?N39.43 - Post-void dribbling (ICD-10) Penile rash ?R21 - Rash and other nonspecific skin eruption (ICD-10) Paget's disease Nocturia ?R35.1 - Nocturia (ICD-10) Incontinence ?R32 - Unspecified urinary incontinence (ICD-10) Microhematuria ?R31.29 - Other microscopic hematuria (ICD-10) Impotence ?N52.9 - Male erectile dysfunction, unspecified (ICD-10) Hypertension ?I10 - Essential (primary) hypertension (ICD-10) Hyperlipidemia ?E78.5 - Hyperlipidemia, unspecified (ICD-10) Kidney stones ?N20.0 - Calculus of kidney (ICD-10) Gross hematuria ?R31.0 - Gross hematuria (ICD-10) Erectile dysfunction ?N52.9 - Male erectile dysfunction, unspecified (ICD-10) Dysuria ?R30.0 - Dysuria (ICD-10) BPH (benign prostatic hyperplasia) ?N40.0 - Benign prostatic hyperplasia without lower urinary tract symptoms (ICD-10) Asymptomatic microscopic hematuria ?R31.21 - Asymptomatic microscopic hematuria (ICD-10) ASHD (arteriosclerotic heart disease) ?I25.10 - Atherosclerotic heart disease of [place] coronary artery without angina pectoris (ICD-10) Surgical History H/O lithotripsy ?Z98.890 - Other specified postprocedural states (ICD-10) History of open reduction and internal fixation (ORIF) procedure (~10/2021) ?Z98.890 - Other specified postprocedural states (ICD-10) Hx of esophagogastroduodenoscopy ?Z98.890 - Other specified postprocedural states (ICD-10) H/O cardiac catheterization ?Z98.890 - Other specified postprocedural states (ICD-10) H/O arthroscopy of knee ?Z98.890 - Other specified postprocedural states (ICD-10) H/O colonoscopy ?Z98.890 - Other specified postprocedural states (ICD-10) H/O cystoscopy ?Z98.890 - Other specified postprocedural states (ICD-10) H/O transurethral resection of prostate ?Z98.890 - Other specified postprocedural states (ICD-10) ?Z90.79 - Acquired absence of other genital organ(s) (ICD-10) S/P AAA repair (~02/2022) ?Z98.890 - Other specified postprocedural states (ICD-10) ?Z86.79 - Personal history of other diseases of the circulatory system (ICD- 10) S/P cystourethroscopy with dilation of urethral stricture ?Z98.890 - Other specified postprocedural states (ICD-10) Social History Within the past year, how often did you have a drink containing alcohol: 2-3 times a week Smoking status: Former smoker Non-prescribed substance use: denies use Previous occupational history: retired Highest level of school completed/degree received: high school graduate Are you now , , , , never or living with a partner: In a typical week, how many times do you talk on the telephone with family, friends, or neighbors: twice per week How often do you get together with friends or relatives: twice per week Little interest or pleasure in doing things: not at all Feeling down, depressed, or hopeless: not at all Feel stressed/tense/nervous/anxious/difficulty sleeping: not at all Do you think of yourself as: straight/heterosexual Gender Identity: male Meds Home Medications and Allergies Home Medications ?Medication ?Instructions ?Recorded ?Confirmed ?Type pravastatin 40 mg tablet 40 mg PO QPM 03/12/23 10/14/23 History cholecalciferol (vitamin D3) 25 25 mcg PO BID 03/24/23 10/14/23 History mcg (1,000 unit) capsule carvedilol 25 mg tablet (Coreg) 25 mg PO BID 04/04/23 10/14/23 History isosorbide mononitrate 30 mg 30 mg PO DAILY 10/14/23 10/14/23 History tablet,extended release 24 hr losartan 50 mg tablet 50 mg PO QPM 10/14/23 10/14/23 History Allergies Allergy/AdvReac Type Severity Reaction Status Date / Time SHALINI Inhibitors Allergy Unknown Unknown Verified 09/22/23 21:07 Iodinated Contrast Media Allergy Unknown Hives Verified 09/22/23 21:07 iodine Allergy Unknown Hives Verified 09/22/23 21:07 tetanus toxoid, adsorbed Allergy Unknown Unknown Verified 09/22/23 21:07 Exam Constitutional Vital Signs, click to edit/add: Last Vital Signs Temp 97.8 F 10/15/23 16:00 Pulse 61 10/15/23 16:30 Resp 14 10/15/23 16:30 BP 138/68 10/15/23 16:30 Pulse Ox 98 10/15/23 16:40 O2 Del Method Room Air 10/15/23 16:00 O2 Flow Rate 1 10/14/23 10:42 Documenting provider has reviewed patient's vital signs: yes Common normals: no apparent distress HENMT Common normals: normocephalic and head/scalp atraumatic Eye Common normals: PERRL and EOMs intact bilaterally Chest Chest: symmetrical chest wall rise Respiratory Common normals: normal respiratory effort Cardio Common normals: regular rate, regular rhythm, S1 normal heart sound and S2 normal heart sound GI Common normals: Normal to inspection, nondistended, normoactive bowel sounds present Extremity Common normals: normal to inspection and no clubbing, cyanosis or edema Neuro Common normals: oriented x3 Results Labs and Meds Lab results: Cardiac Enzymes 10/15/23 Range/Units 06:34 AST 27 (15-37) U/L Lipids 10/15/23 Range/Units 06:34 Triglycerides 56 (<=150) mg/dL Cholesterol 89 (<=200) mg/dL HDL Cholesterol 39 L (40-60) mg/dL Cholesterol/HDL Ratio 2.3 CBC 10/15/23 Range/Units 06:34 WBC 8.2 (4.0-11.0) 10^3/uL RBC 3.17 L (4.70-6.10) 10^6/uL Hgb 9.6 L (14.0-18.0) g/dL Hct 28.8 L (42.0-54.0) % Plt Count 152 (150-450) 10^3/uL Neut # (Auto) 6.7 H (1.4-6.5) 10^3/uL Lymph # (Auto) 0.8 L (1.2-3.8) 10^3/uL [place] # (Auto) 0.7 (0.3-0.8) 10^3/uL Eos # (Auto) 0.0 (0.0-0.7) 10^3/uL Baso # (Auto) 0.0 (0.0-0.1) 10^3/uL Comprehensive Metabolic Panel 10/15/23 Range/Units 06:34 Sodium 134 L (136-145) mmol/L Potassium 3.9 (3.5-5.1) mmol/L Chloride 99 (98-107) mmol/L Carbon Dioxide 26.8 (21.0-32.0) mmol/L BUN 20.0 H (7.0-18.0) mg/dL Creatinine 0.83 (0.70-1.30) mg/dL Glucose 137 H (74-106) mg/dL Calcium 8.7 (8.5-10.1) mg/dL AST 27 (15-37) U/L ALT 50 (16-63) U/L Alkaline Phosphatase 100 (46-116) U/L Total Protein 6.4 (6.4-8.2) g/dL Albumin 2.9 L (3.4-5.0) g/dL Intake and Output 10/15/23 10/15/23 10/15/23 07:59 15:59 23:59 Intake Total 50 / 50 50 / 50 Output Total 300 / 2500 1150 / 1150 Balance -250 / -2450 -1100 / -1100 Intake: IV 50 / 50 50 / 50 Magnesium Sulfate in Water 2 gm 50 / 50 In 50 ml @ 50 mls/hr IV ONCE ONE Rx#:[id number] dilTIAZem HCL 125 mg In 0.9 % 50 / 50 Sodium Chloride 100 ml @ 5 MG/ HR 5 mls/hr IV TITR ONE Rx#: [id number] Output: Urine 300 / 2500 1150 / 1150 Other: Weight 65.3 kg Assessment and Plan Assessment and Plan (1) Atrial fibrillation with RVR: (2) NSTEMI (non-ST elevated myocardial infarction): (3) Acute on chronic diastolic (congestive) heart failure: (4) Hyponatremia: (5) Hypertension: Qualifiers: Hypertension type: primary hypertension Qualified Code(s): I10 - Essential (primary) hypertension (6) Aortic valve stenosis: Qualifiers: Cardiac valve disease etiology: nonrheumatic Qualified Code(s): I35.0 - Nonrheumatic aortic (valve) stenosis (7) Carotid stenosis: Qualifiers: Laterality: bilateral Qualified Code(s): I65.23 - Occlusion and stenosis of bilateral carotid arteries (8) AAA (abdominal aortic aneurysm): Qualifiers: Abdominal aorta location: infrarenal aorta Presence of rupture: without rupture Qualified Code(s): I71.43 - Infrarenal abdominal aortic aneurysm, without rupture (9) Hyperlipidemia: Qualifiers: Hyperlipidemia type: mixed hyperlipidemia Qualified Code(s): E78.2 - Mixed hyperlipidemia (10) Clavicular fracture: Qualifiers: Encounter type: subsequent encounter Clavicle location: lateral end Fracture type: closed Fracture alignment: nondisplaced Laterality: left Fracture healing: with routine healing Qualified Code(s): S42.035D - Nondisplaced fracture of lateral end of left clavicle, subsequent encounter for fracture with routine healing Plan Patient with reported new onset Afib in the setting of surgical stress High sensitivity trop peaked at 366 and is downtrending Patient denies episodes of chest pain outside of episode of RVR He denies any cardiac symptoms at the present time Recommend obtaining 2 additional trop levels to ensure that it continues downtrending Recommend obainiing echo to assess LVEF, wall motion, and valvular function If these continue to downtrend, and if no regional wall motion abnormality, NSTEMI is likely type 2 in the setting of surgical stress. Patient will require ischemic evaluation given coronary calcification once acute illness resolves If enzymes uptrend, or if wall motion abnormality or if patient has recurrence of chest pain, recommend inpatient transfer for inpatient ischemic evaluation For Afib, patient is on coreg. titrate as needed for rate control Would recommend discussing with patient's surgical team. If there is no contrainidcation for anticoagulation, would recommend initiating anticoagulation for stroke prophylaxis Patient with heavy coronary calcificaiton on CT. Recommend baby aspirin and high intensity statin (crestor 20-40 mg) daily Please do not hesitate to contact [facility] with questions. Mariano Mejia MD
--- NOTE | 2023-10-15 18:32 | PC.NURSE ---
Phone call placed to [facility] general surgery about patient afib and if ok to start on anticoagulant, Dr Felder returned call at [phone], verbal ok to start patient on Eliquis, monitor CBC's/hemoglobin.
[2023-10-15 19:09] LABS: Troponin I High Sensitivity 220.7 pg/mL (4.0-76.1)
[2023-10-15] MEDS: APIXABAN 5 MG TABLET PO (21:40)
[2023-10-15] MEDS: ATORVASTATIN CALCIUM 10 MG TABLET PO (21:40)
[2023-10-15] MEDS: LOSARTAN POTASSIUM 50 MG TABLET PO (21:40)
--- NOTE | 2023-10-15 22:25 | PC.NURSE ---
BP improved after meds/lasix given
[2023-10-16] VITALS (146 sets, daily range): BP systolic 86–187; BP diastolic 47–93; PULSE 57–126; TEMP 36.2–37; O2SAT 95–99
--- NOTE | 2023-10-16 01:53 | ECG_ITS ---
The 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
--- NOTE | 2023-10-16 03:15 | ECG_ITS ---
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
[2023-10-16 06:10] LABS: Basophils Percent Auto 0.2 % (0.2-2.0); Eosinophils Percent Auto 0.3 % (0.9-7.0); Hematocrit 28.2 % (42.0-54.0); Hemoglobin 9.6 g/dL (14.0-18.0); Immature Granulocytes Abs Auto 0.03 10^3/uL (0.00-0.03); Immature Granulocytes Pct Auto 0.3 % (0.0-0.5); Lymphocytes Absolute Auto 1.4 10^3/uL (1.2-3.8); Lymphocytes Percent Auto 14.6 % (20.5-60.0); Mean Corpuscular Hemoglobin 30.8 pg (25.9-34.0); Mean Corpuscular Volume 90.4 fL (80.0-94.0); Mean Platelet Volume 10.1 fL (9.5-13.5); Monocytes Absolute Auto 1.1 10^3/uL (0.3-0.8); Monocytes Percent Auto 12.3 % (1.7-12.0); Neutrophils Absolute Auto 6.7 10^3/uL (1.4-6.5); Neutrophils Percent Auto 72.3 % (43.0-75.0); Platelet Count 187 10^3/uL (150-450); Red Blood Count 3.12 10^6/uL (4.70-6.10); Red Cell Distribution Width 12.4 % (11.0-15.0); White Blood Count 9.3 10^3/uL (4.0-11.0)
[2023-10-16 06:26] LABS: Alanine Aminotransferase 45 U/L (16-63); Albumin Globulin Ratio 0.8; Albumin Level 2.9 g/dL (3.4-5.0); Alkaline Phosphatase 98 U/L (46-116); Anion Gap 6.8; Aspartate Amino Transferase 19 U/L (15-37); BUN Creatinine Ratio 36.9; Bilirubin Total 0.8 mg/dL (0.2-1.0); Calcium 8.3 mg/dL (8.5-10.1); Carbon Dioxide 31.7 mmol/L (21.0-32.0); Chloride 97 mmol/L (98-107); Estimated GFR (African America >60 (>=60); Estimated GFR (Non-African Ame >60 (>=60); Globulin 3.7 g/dL; Glucose 94 mg/dL (74-106); Potassium 3.5 mmol/L (3.5-5.1); Sodium 132 mmol/L (136-145); Total Protein 6.6 g/dL (6.4-8.2)
[2023-10-16 08:10] LABS: Troponin I High Sensitivity 209.6 pg/mL (4.0-76.1)
[2023-10-16] MEDS: CHOLECALCIFEROL (VITAMIN D3) 25 MCG/1,000 UNITS TABLET PO ×2 (08:39→20:51)
[2023-10-16] MEDS: ASPIRIN 81 MG TABLET.DR PO (08:39)
[2023-10-16] MEDS: ISOSORBIDE MONONITRATE 30 MG TAB.ER.24H PO (08:39)
[2023-10-16] MEDS: APIXABAN 5 MG TABLET PO ×2 (08:39→20:51)
[2023-10-16] MEDS: CARVEDILOL 25 MG TABLET PO (08:39)
[2023-10-16] MEDS: FUROSEMIDE 40 MG/4 ML VIAL IVP (09:02)
--- NOTE | 2023-10-16 09:27 | REH.PTDLY ---
Physical Therapy Daily Note PT Daily Note/Assess Start: 10/16/23 09:19 Freq: Status: Active Protocol: Document 10/16/23 09:19 LOC (Rec: 10/16/23 09:23 LOC [id number]) Physical Therapy Daily Note/Assessment Time In 08:42 Time Out 08:55 Subjective Pt up in chair with nursing upon arrival. Agreeable to therapy this morning. Pt is not wearing arm sling, when asked nursing states pt has not been wanting wear it. Therapeutic Exercise Minutes (minutes) 8 Therapeutic Exercise Units 1 Therapeutic Exercise Treatment Instructed in seated HR, LAQ, marching, and hip abd 10x ea followed by standing HR, mini squats, marching, and hip flexion for improved strength. Pt does well with exs, no rest breaks needed with standing exs. Therapeutic Activity Minutes (minutes) 5 Therapeutic Activity Units 0 Therapeutic Activity Comments Sit to and from stand transfers Supervised. Gait training with RW CGA 110 feet with no SOB noted. Pt utilizes light UE support on RW, using R to push and occasional assist from therapist, good posture noted. Total Therapy Minutes 13 Total Physical Therapy Units 1 Daily Note Summary Progressed exs and gait today with pt tolerating very well as no rest breaks were needed and no increase in dyspnea during rx.
--- NOTE | 2023-10-16 10:24 | XR_ITS ---
The [address] [address] Patient Name: CHICO BAKER MRN: [id number] date: 1940 Sex: M Assigned Patient Location: ICU Current Patient Location: ICU Accession/Order Number: [id number] Exam Date: 10/16/2023 10:40 Report Date: 10/16/2023 12:24 At the request of: ESSENCE RODRIGUEZ Procedure: XR chest 2V PA AND LATERAL CHEST; 10/16/2023 10:40 AM EDT Clinical History:RUL pneumonia Comparison: 03/17/[address] 10/14/2023 . No obvious change osseous structures. No change cardiac and mediastinal silhouettes or john. No infiltrate, effusion, or failure. Pleural calcifications bilaterally are unchanged. Lungs are reasonably well expanded. XR/XR chest 2V IMPRESSION: 1. No infiltrate, effusion, or failure. Electronically authenticated by: ROSANNE REYES Date: 10/16/2023 12:24
--- NOTE | 2023-10-16 10:28 | P.PN_ITS ---
Progress Note: Subjective Subjective Interval history: Patient examined in the ICU, sitting up in chair, coughing throughout the evaluation. He states his cough is definitely worse today. More sputum production overnight. Shortness of breath feels about the same with ambulation. Exam Constitutional Vital Signs, click to edit/add: Last Vital Signs Temp 98.6 F 10/16/23 08:00 Pulse 65 10/16/23 10:00 Resp 20 10/16/23 09:30 BP 118/84 10/16/23 08:00 Pulse Ox 97 10/16/23 08:00 O2 Del Method Room Air 10/16/23 08:00 O2 Flow Rate 1 10/14/23 10:42 Documenting provider has reviewed patient's vital signs: yes Common normals: no apparent distress (Except coughing throughout the evaluation) Chest Common normals: inspection of chest normal Respiratory Common normals: abnormal respiratory effort (Significant coughing) Auscultation: rales and rhonchi Cardio Common normals: regular rate and regular rhythm Extremity Common normals: normal to inspection, full ROM, normal capillary refill, no clubbing, cyanosis or edema and no calf tenderness Progress Note: Objective Labs Labs: Short CBC 10/16/23 Range/Units 05:15 WBC 9.3 (4.0-11.0) 10^3/uL Hgb 9.6 L (14.0-18.0) g/dL Hct 28.2 L (42.0-54.0) % Plt Count 187 (150-450) 10^3/uL BMP 10/16/23 05:15 Sodium 132 L Potassium 3.5 Chloride 97 L Carbon Dioxide 31.7 BUN 31.0 H Creatinine 0.84 Glucose 94 Calcium 8.3 L Liver Function 10/16/23 Range/Units 05:15 Total Bilirubin 0.8 (0.2-1.0) mg/dL AST 19 (15-37) U/L ALT 45 (16-63) U/L Alkaline Phosphatase 98 (46-116) U/L Albumin 2.9 L (3.4-5.0) g/dL Progress Note: A&P Assessment and Plan (1) Atrial fibrillation with RVR: (2) NSTEMI (non-ST elevated myocardial infarction): (3) Acute on chronic diastolic (congestive) heart failure: (4) Hyponatremia: (5) Hypertension: Qualifiers: Hypertension type: primary hypertension Qualified Code(s): I10 - Essential (primary) hypertension (6) Aortic valve stenosis: Qualifiers: Cardiac valve disease etiology: nonrheumatic Qualified Code(s): I35.0 - Nonrheumatic aortic (valve) stenosis (7) Carotid stenosis: Qualifiers: Laterality: bilateral Qualified Code(s): I65.23 - Occlusion and stenosis of bilateral carotid arteries (8) AAA (abdominal aortic aneurysm): Qualifiers: Abdominal aorta location: infrarenal aorta Presence of rupture: without rupture Qualified Code(s): I71.43 - Infrarenal abdominal aortic aneurysm, without rupture (9) Hyperlipidemia: Qualifiers: Hyperlipidemia type: mixed hyperlipidemia Qualified Code(s): E78.2 - Mixed hyperlipidemia (10) Clavicular fracture: Qualifiers: Clavicle location: lateral end Encounter type: subsequent encounter Fracture alignment: nondisplaced Fracture healing: with routine healing Fracture type: closed Laterality: left Qualified Code(s): S42.035D - Nondisplaced fracture of lateral end of left clavicle, subsequent encounter for fracture with routine healing Plan Admit findings: Tachycardia due to atrial fibrillation with rapid ventricular response, respiratory distress, uncontrolled hypertension, leukocytosis, elevated high-sensitivity troponin secondary to atrial fibrillation with rapid ventricular response leading to acute combined congestive heart failure And acute NSTEMI Atrial fibrillation with RVR: Has been in and out of sinus rhythm but is back in sinus rhythm this morning. Rate well-controlled. NSTEMI (non-ST elevated myocardial infarction): Cardiac markers continue to trend down. Rate control should improve. Reviewed cardiology consultation Acute on chronic diastolic (congestive) heart failure: With rales on lung exam and peripheral edema consistent with acute combined congestive heart failure, continue with IV Lasix but will change to daily echocardiogram with severe aortic stenosis and diastolic dysfunction Hyponatremia: Down slightly today follow-up, continue to monitor Hypertension: Blood pressure better controlled continue with current medications, somewhat low this morning. May need to cut back on medications we will see how the day progresses Aortic valve stenosis: Continue to monitor blood pressure, patient was told likely repair in the future Carotid stenosis: Monitor as an outpatient AAA (abdominal aortic aneurysm): Monitor as an outpatient Hyperlipidemia: Continue with home medications Clavicular fracture: Outpatient management Moderate protein calorie malnutrition-diet management Acute bronchitis with leukocytosis, cough progressive, leukocytosis also with left shift consistent with bacterial process. Try to obtain sputum culture, start patient on IV antibiotics Iron deficiency anemia-monitor as an outpatient, down slightly in last 2 days, stable today GERD-coughing after eating, consistent with reflux-start patient on IV Protonix Admission status: Patient with acute onset of atrial fibrillation with rapid ventricular response with acute NSTEMI now progressing to possible acute bronchitis, medically necessary treatment will span more than 2 midnights. Inpatient status.
[2023-10-16] MEDS: CEFTRIAXONE 1,000 MG in 0.9 % SODIUM CHLORIDE 50 ML 100 MG IV (12:13)
[2023-10-16] MEDS: PANTOPRAZOLE SODIUM 40 MG VIAL IV (12:13)
[2023-10-16] MEDS: LEVOFLOXACIN IN DEXTROSE 5 % 750 MG/150 ML PREMIX 100 MG IV (12:49)
[2023-10-16 17:00] LABS: Hematocrit 30.5 % (42.0-54.0); Hemoglobin 10.2 g/dL (14.0-18.0); Mean Corpuscular HGB Conc 33.4 g/dL (29.9-35.2); Mean Corpuscular Hemoglobin 30.4 pg (25.9-34.0); Mean Platelet Volume 9.5 fL (9.5-13.5); Platelet Count 240 10^3/uL (150-450); Red Blood Count 3.35 10^6/uL (4.70-6.10); Red Cell Distribution Width 12.4 % (11.0-15.0); White Blood Count 11.6 10^3/uL (4.0-11.0)
[2023-10-16 17:21] LABS: Basophils Abs Manual 0.11 10^3/uL (0.00-0.10); Lymphocytes Absolute Manual 1.39 10^3/uL (1.20-3.80); Monocytes Absolute Manual 1.27 10^3/uL (0.30-0.80); Segmented Neut Absolute Manual 8.81 10^3/uL (1.4-6.5)
[2023-10-16] MEDS: HYDRALAZINE HCL 20 MG/ML VIAL 10 MG IVP (18:04)
[2023-10-16] MEDS: CARVEDILOL 12.5 MG TABLET PO (20:51)
[2023-10-16] MEDS: LOSARTAN POTASSIUM 50 MG TABLET PO (20:51)
[2023-10-16] MEDS: ATORVASTATIN CALCIUM 10 MG TABLET PO (21:01)
[2023-10-17] VITALS (12 sets, daily range): BP systolic 153–174; BP diastolic 63–73; PULSE 61–68; TEMP 36.4–36.8; O2SAT 98–99
[2023-10-17 05:40] LABS: Basophils Percent Auto 0.2 % (0.2-2.0); Eosinophils Absolute Auto 0.2 10^3/uL (0.0-0.7); Eosinophils Percent Auto 1.6 % (0.9-7.0); Hematocrit 29.1 % (42.0-54.0); Hemoglobin 9.6 g/dL (14.0-18.0); Immature Granulocytes Abs Auto 0.04 10^3/uL (0.00-0.03); Immature Granulocytes Pct Auto 0.4 % (0.0-0.5); Lymphocytes Absolute Auto 1.2 10^3/uL (1.2-3.8); Lymphocytes Percent Auto 13.5 % (20.5-60.0); Mean Corpuscular Hemoglobin 30.2 pg (25.9-34.0); Mean Corpuscular Volume 91.5 fL (80.0-94.0); Mean Platelet Volume 9.7 fL (9.5-13.5); Monocytes Absolute Auto 1.1 10^3/uL (0.3-0.8); Neutrophils Absolute Auto 6.6 10^3/uL (1.4-6.5); Neutrophils Percent Auto 72.3 % (43.0-75.0); Platelet Count 191 10^3/uL (150-450); Red Blood Count 3.18 10^6/uL (4.70-6.10); Red Cell Distribution Width 12.2 % (11.0-15.0); White Blood Count 9.1 10^3/uL (4.0-11.0)
[2023-10-17 06:02] LABS: Alanine Aminotransferase 33 U/L (16-63); Albumin Globulin Ratio 0.8; Albumin Level 2.8 g/dL (3.4-5.0); Alkaline Phosphatase 99 U/L (46-116); Anion Gap 6.9; Aspartate Amino Transferase 15 U/L (15-37); BUN Creatinine Ratio 33.3; Bilirubin Total 0.8 mg/dL (0.2-1.0); Calcium 8.4 mg/dL (8.5-10.1); Carbon Dioxide 30.9 mmol/L (21.0-32.0); Chloride 96 mmol/L (98-107); Estimated GFR (African America >60 (>=60); Estimated GFR (Non-African Ame >60 (>=60); Globulin 3.5 g/dL; Glucose 103 mg/dL (74-106); Potassium 3.8 mmol/L (3.5-5.1); Sodium 130 mmol/L (136-145); Total Protein 6.3 g/dL (6.4-8.2)
[2023-10-17 06:20] LABS: Troponin I High Sensitivity 180.4 pg/mL (4.0-76.1)
[2023-10-17] MEDS: CARVEDILOL 25 MG TABLET PO (08:11)
[2023-10-17] MEDS: ISOSORBIDE MONONITRATE 30 MG TAB.ER.24H PO (08:11)
[2023-10-17] MEDS: APIXABAN 5 MG TABLET PO (08:11)
[2023-10-17] MEDS: CHOLECALCIFEROL (VITAMIN D3) 25 MCG/1,000 UNITS TABLET PO (08:11)
[2023-10-17] MEDS: ASPIRIN 81 MG TABLET.DR PO (08:11)
[2023-10-17] MEDS: PANTOPRAZOLE SODIUM 40 MG VIAL IV (08:11)
[2023-10-17] MEDS: CEFTRIAXONE 1,000 MG in 0.9 % SODIUM CHLORIDE 50 ML 100 MG IV (08:11)
--- NOTE | 2023-10-17 08:40 | P.DS_ITS ---
DS: Providers Provider Date of admission: 10/14/23 14:25 Primary care physician: Shailesh Vinson DO Consults: 10/14/23 14:21 Occupational Therapy Eval and Treat Routine Reason for consultation: Ambulatory dysfunction/weakness Physical Therapy Eval and Treat Routine Reason for consultation: Ambulatory dysfunction/weakness 10/14/23 15:55 Consult to Cardiology Routine Reason for consultation: CHF, afib with RVR, NSTEMI DS: Diagnosis Discharge Diagnosis (1) Atrial fibrillation with RVR: (2) NSTEMI (non-ST elevated myocardial infarction): (3) Acute on chronic diastolic (congestive) heart failure: (4) Hyponatremia: (5) Hypertension: Qualifiers: Hypertension type: primary hypertension Qualified Code(s): I10 - Essential (primary) hypertension (6) Aortic valve stenosis: Qualifiers: Cardiac valve disease etiology: nonrheumatic Qualified Code(s): I35.0 - Nonrheumatic aortic (valve) stenosis (7) Carotid stenosis: Qualifiers: Laterality: bilateral Qualified Code(s): I65.23 - Occlusion and stenosis of bilateral carotid arteries (8) AAA (abdominal aortic aneurysm): Qualifiers: Abdominal aorta location: infrarenal aorta Presence of rupture: without rupture Qualified Code(s): I71.43 - Infrarenal abdominal aortic aneurysm, without rupture (9) Hyperlipidemia: Qualifiers: Hyperlipidemia type: mixed hyperlipidemia Qualified Code(s): E78.2 - Mixed hyperlipidemia (10) Clavicular fracture: Qualifiers: Clavicle location: lateral end Encounter type: subsequent encounter Fracture alignment: nondisplaced Fracture healing: with routine healing Fra ture type: closed Laterality: left Qualified Code(s): S42.035D - Nondisplaced fracture of lateral end of left clavicle, subsequent encounter for fracture with routine healing Plan Admit findings: Tachycardia due to atrial fibrillation with rapid ventricular response, respiratory distress, uncontrolled hypertension, leukocytosis, elevated high-sensitivity troponin secondary to atrial fibrillation with rapid ventricular response leading to acute combined congestive heart failure And acute NSTEMI Atrial fibrillation with RVR: Has been in and out of sinus rhythm but is back in sinus rhythm this morning. Rate well-controlled. NSTEMI (non-ST elevated myocardial infarction): Cardiac markers continue to trend down. Rate control should improve. Reviewed cardiology consultation Acute on chronic diastolic (congestive) heart failure: Improving at the time of discharge Hyponatremia: Deteriorated at the time of discharge Hypertension: Stable at the time of discharge Aortic valve stenosis: Stable at the discharge Carotid stenosis: Monitor as an outpatient AAA (abdominal aortic aneurysm): Monitor as an outpatient Hyperlipidemia: Continue with home medications Clavicular fracture: Outpatient management Moderate protein calorie malnutrition-diet management Acute bronchitis with leukocytosis, cough progressive, leukocytosis also with left shift consistent with bacterial process. Improving at the time of discharge Iron deficiency anemia-monitor as an outpatient, down slightly in last 2 days, stable today GERD-coughing after eating, consistent with reflux-start patient on IV Protonix Admission status: Patient with acute onset of atrial fibrillation with rapid ventricular response with acute NSTEMI now progressing to possible acute bronchitis, medically necessary treatment will span more than 2 midnights. Inpatient status. ? DS: Summary Hospital Course Hospital Course: Patient was admitted with acute shortness of breath. Found to have atrial fibrillation with rapid ventricular response resulting in acute NSTEMI. Started on anticoagulation. This was held for 1 day while pending approval from surgeon. Patient is a recent gallbladder surgery. Patient overall is improving with diuresis and rate control. The day prior to discharge I felt he had a touch of bronchitis listening to his lungs. Started on antibiotics due to the cough with significant sputum production. Cultures pending at the time of discharge will send patient home with oral antibiotics. He has a follow-up visit coming up with his PCP within the next 4 days. Keep that visit. That is for follow-up on surgery and this visit. Follow-up with cardiology based on their recommendations. Medications see list. Status at Discharge Overall status at discharge: patient is not back to baseline Time Spent with Patient Time attestation: Total time spent providing and/or coordinating discharge services: Time spent: greater than 30 minutes Exam Constitutional Vital Signs, click to edit/add: Last Vital Signs Temp 98.2 F 10/17/23 07:54 Pulse 66 10/17/23 07:54 Resp 18 10/17/23 07:54 BP 174/73 H 10/17/23 07:54 Pulse Ox 99 10/17/23 07:54 O2 Del Method Room Air 10/17/23 07:54 O2 Flow Rate 1 10/14/23 10:42 Documenting provider has reviewed patient's vital signs: yes Common normals: no apparent distress (Except coughing throughout the evaluation) Chest Common normals: inspection of chest normal Respiratory Common normals: abnormal respiratory effort (Significant coughing) Auscultation: rhonchi (Improving); no rales (Resolved) Cardio Common normals: regular rate and regular rhythm Extremity Common normals: normal to inspection, full ROM, normal capillary refill, no clubbing, cyanosis or edema and no calf tenderness DS: Data Data Completed and Pending Labs on day of discharge: Labs from last 24 hours 10/17/23 10/16/23 05:10 16:56 WBC 9.1 11.6 H RBC 3.18 L 3.35 L Hgb 9.6 L 10.2 L Hct 29.1 L 30.5 L MCV 91.5 91.0 MCH 30.2 30.4 MCHC 33.0 33.4 RDW 12.2 12.4 Plt Count 191 240 MPV 9.7 9.5 Neut % (Auto) 72.3 Lymph % (Auto) 13.5 L Granite % (Auto) 12.0 Eos % (Auto) 1.6 Baso % (Auto) 0.2 Neut # (Auto) 6.6 H Lymph # (Auto) 1.2 Granite # (Auto) 1.1 H Eos # (Auto) 0.2 Baso # (Auto) 0.0 Abs Immat Gran (auto) 0.04 H Seg Neuts % (Manual) 76.0 H Lymphocytes % (Manual) 12.0 L Monocytes % (Manual) 11.0 Eosinophils % (Manual) 0.0 L Basophils % (Manual) 1.0 Imm/Tot Granulo (auto) 0.4 Neutrophils # (Manual) 8.81 H Lymphocytes # (Manual) 1.39 Monocytes # (Manual) 1.27 H Eosinophils # (Manual) 0.00 Basophils # (Manual) 0.11 H Sodium 130 L Potassium 3.8 Chloride 96 L Carbon Dioxide 30.9 Anion Gap 6.9 BUN 28.0 H Creatinine 0.84 Est GFR ( Amer) >60 Est GFR (Non-Af Amer) >60 BUN/Creatinine Ratio 33.3 Glucose 103 Calcium 8.4 L Total Bilirubin 0.8 AST 15 ALT 33 Alkaline Phosphatase 99 Troponin I High Sens 180.4 H* NT-Pro-B Natriuret Pep 1963.0 H* Total Protein 6.3 L Albumin 2.8 L Globulin 3.5 Albumin/Globulin Ratio 0.8 Discharge Plan Discharge Disposition: Home, Self-Care Condition: Fair Discharge Medications: New cefdinir 300 mg capsule 600 mg PO DAILY Qty: 20 0RF hydrochlorothiazide 25 mg tablet 25 mg PO DAILY Qty: 30 11RF potassium chloride 10 mEq capsule, extended release 10 meq PO BID Qty: 60 11RF Eliquis 2.5 mg tablet 2.5 mg PO BID Qty: 60 11RF Continued pravastatin 40 mg tablet 40 mg PO QPM carvedilol [Coreg] 25 mg tablet 25 mg PO BID cholecalciferol (vitamin D3) 25 mcg (1,000 unit) capsule 25 mcg PO BID isosorbide mononitrate 30 mg tablet extended release 24 hr 30 mg PO DAILY losartan 50 mg tablet 50 mg PO QPM Print Language: Finnish Patient Instructions: Hydrochlorothiazide (By mouth), Potassium Chloride (By mouth), Cefdinir (By mouth), Apixaban (By mouth) (Eliquis), A-fib (Atrial Fibrillation) (DC) Forms: Portal Instructions Follow Up Appointments: Dr Ryder Vinson [phone] Spoke with office subscription agent, faxed face sheet, office will call pt on wednesdayOct 17 to schedule follow up
--- NOTE | 2023-10-18 12:01 | CM.DCFOLLOWU ---
Person spoke with: Reynaldo and his How are you feeling? Much better How is your pain? No pain Did you understand your discharge instructions? Yes Do you have any questions about your discharge instructions? Yes I was in the understanding I was to have Holter Monitor placed. Pt given # for cardiology clinic to inquire. They were instructed by [facility]. Pt does have appt on for Dr. Vinson and will ask him also. Were you given any prescriptions at discharge? Yes Were you able to get your prescriptions filled? Yes Do you understand how to take your medications as ordered? Yes Do you have any questions about your follow up appointment and do you plan to keep your follow up appointment? No appointments are scheduled Is there anything else that you would like to discuss? No Questions/Comments/Concerns/Other:
== END 2023-10-17 10:30 | disposition home or self-care (01) | DRG 280 ==
LOC: ER 13:49 → ICU 10-15 14:29
PROVIDERS: Internal Medicine; Internal Medicine Cardiovascular Disease; Admitting Provider Family Medicine; Emergency Provider Emergency Medicine; PCP Internal Medicine; Visit Provider Family Medicine
DX: I48.91 Unspecified atrial fibrillation (principal); I50.21 Acute systolic (congestive) heart failure; I21.4 Non-ST elevation (NSTEMI) myocardial infarction; I50.33 Acute on chronic diastolic (congestive) heart failure; E44.0 Moderate protein-calorie malnutrition; E87.1 Hypo-osmolality and hyponatremia; I11.0 Hypertensive heart disease with heart failure; I35.0 Nonrheumatic aortic (valve) stenosis; I65.23 Occlusion and stenosis of bilateral carotid arteries; E78.5 Hyperlipidemia, unspecified; S42.035D Nondisplaced fracture of lateral end of left clavicle, subsequent encounter for fracture with routine healing; R06.03 Acute respiratory distress; J20.9 Acute bronchitis, unspecified; D50.9 Iron deficiency anemia, unspecified; K21.9 Gastro-esophageal reflux disease without esophagitis; Z68.22 Body mass index [BMI] 22.0-22.9, adult; I71.40 Abdominal aortic aneurysm, without rupture, unspecified; Z90.49 Acquired absence of other specified parts of digestive tract; Z87.442 Personal history of urinary calculi; Z98.890 Other specified postprocedural states; Z87.891 Personal history of nicotine dependence; Z79.899 Other long term (current) drug therapy; Z95.828 Presence of other vascular implants and grafts; Z90.79 Acquired absence of other genital organ(s)
CPT/HCPCS: 36415; 71045; 71046; 71275; 80048; 80053; 80061; 83735; 83880; 84443; 84484; 85007; 85025; 85027; 85610; 85730; 87070; 93005; 93306; 94761; 96365; 96366; 96367; 96372; 96375; 96376; 97110; 97162; 97165; 99285; J0360; J0696; J1650; J1940; J2919; J3475; Q9967

== ENCOUNTER 2023-10-26 12:54 | Outpatient (OUT) | payer MEDICARE, OTHER, SELFPAY ==
--- NOTE | 2023-10-26 12:58 | CA_ITS ---
Patient Name: CHICO BAKER MR#: [id number] : 1940 Exam Date: 10/26/2023 Ordering Doctor: DR DESHAUN WESTON D.O. ECHOCARDIOGRAM REPORT PROCEDURE: CA ECHO W/ CON INDICATIONS: Atrial Fibrillation, NSTEMI, Acute on chronic CHF COMPARISON: None. DESCRIPTION: LIMITED ECHOCARDIOGRAM Real-time transthoracic echocardiography with 2D, M-mode, spectral and color flow Doppler performed. QUALITY: Lumason contrast was administered due to suboptimal imaging for left ventricular opacification to improve delineation of endocardial boarders. LEFT VENTRICLE: Normal chamber size. Normal left ventricular wall thickness. Global left ventricular systolic function is normal. LV EF: Calculated left ventricular ejection fraction is 63% DIASTOLIC: ATRIAL SEPTUM: LEFT ATRIUM: Mild chamber dilatation. RIGHT ATRIUM: Mild chamber dilatation. RIGHT VENTRICLE: Mildly dilated with normal systolic function. TRICUSPID VALVE: MITRAL VALVE: AORTIC VALVE: AORTIC ROOT: PULMONIC VALVE: PERICARDIUM: No pericardial effusion. IVC: PLEURA: CONCLUSION: 1. Normal ventricular systolic function. LVEF is calculated at 63%. 2. No pericardial effusion. 3. Mild biatrial dilatation. 4. Limited study performed for assessment of ventricular systolic function with no Doppler interrogation. Adult Echocardiography Procedure Report Left Ventricle LVEDD (3.7 - 5.6 cm): 4.21 cm LVESD (2.2 - 4.0 cm): 2.70 cm LVIVS thickness (0.6 - 1.2 cm): 0.84 cm LVPW thickness (0.5 - 1.0 cm): 0.91 cm Left Ventricular Ejection Fraction: 63.19 % Left Atrium Mitral Valve Right Ventricle Aorta Aortic Valve Tricuspid Valve Pulmonic Valve Right Atrium Dictated by: Kimani Spring M.D. on 10/26/2023 at 19:05 Approved by: Kimani Spring M.D. on 10/26/2023 at 19:09
[2023-10-26 14:19] LABS: Basophils Absolute Auto 0.1 10^3/uL (0.0-0.1); Basophils Percent Auto 0.5 % (0.2-2.0); Eosinophils Absolute Auto 0.4 10^3/uL (0.0-0.7); Eosinophils Percent Auto 2.9 % (0.9-7.0); Hematocrit 32.4 % (42.0-54.0); Hemoglobin 10.4 g/dL (14.0-18.0); Immature Granulocytes Abs Auto 0.06 10^3/uL (0.00-0.03); Immature Granulocytes Pct Auto 0.5 % (0.0-0.5); Lymphocytes Absolute Auto 1.4 10^3/uL (1.2-3.8); Lymphocytes Percent Auto 11.6 % (20.5-60.0); Mean Corpuscular HGB Conc 32.1 g/dL (29.9-35.2); Mean Corpuscular Volume 93.4 fL (80.0-94.0); Mean Platelet Volume 9.2 fL (9.5-13.5); Monocytes Absolute Auto 1.4 10^3/uL (0.3-0.8); Neutrophils Absolute Auto 9.1 10^3/uL (1.4-6.5); Neutrophils Percent Auto 73.5 % (43.0-75.0); Platelet Count 209 10^3/uL (150-450); Red Blood Count 3.47 10^6/uL (4.70-6.10); Red Cell Distribution Width 12.7 % (11.0-15.0); White Blood Count 12.4 10^3/uL (4.0-11.0)
[2023-10-26] MEDS: SULFUR HEXAFLUORIDE MICROSPHR 25 MG/5 ML VIAL 10 MG IV (14:29)
[2023-10-26 14:55] LABS: Alanine Aminotransferase 19 U/L (16-63); Albumin Globulin Ratio 0.8; Albumin Level 3.1 g/dL (3.4-5.0); Alkaline Phosphatase 106 U/L (46-116); Anion Gap 11.5; Aspartate Amino Transferase 16 U/L (15-37); BUN Creatinine Ratio 14.7; Bilirubin Total 0.5 mg/dL (0.2-1.0); Calcium 8.8 mg/dL (8.5-10.1); Chloride 100 mmol/L (98-107); Estimated GFR (African America >60 (>=60); Estimated GFR (Non-African Ame >60 (>=60); Globulin 3.9 g/dL; Glucose 134 mg/dL (74-106); Potassium 4.5 mmol/L (3.5-5.1); Sodium 136 mmol/L (136-145); Thyroid Stimulating Hormone 2.068 uIU/mL (0.358-3.740)
== END 2023-10-26 12:55 | disposition home or self-care (01) ==
LOC: CARD 12:54
PROVIDERS: PCP Internal Medicine; Visit Provider Internal Medicine
DX: I48.91 Unspecified atrial fibrillation (principal); I21.4 Non-ST elevation (NSTEMI) myocardial infarction; I50.33 Acute on chronic diastolic (congestive) heart failure; R53.83 Other fatigue; R73.01 Impaired fasting glucose; E78.00 Pure hypercholesterolemia, unspecified; I11.0 Hypertensive heart disease with heart failure
CPT/HCPCS: 36415; 80053; 84443; 85025; 93242; C8929; Q9950

== ENCOUNTER 2023-12-17 11:16 | Outpatient (OUT) | payer MEDICARE, OTHER, SELFPAY ==
--- OUTSIDE RECORDS SUMMARY | 2023-12-16 10:22 | XMS_ITS | CCD ---
Author Organization [facility] Care Team Providers Care Hadoop Developer Name Role Phone Orlando Dotson Unavailable Raul Quan Unavailable Tamar Perea Unavailable Shailesh Dunham Unavailable DO Shailesh Dunham Primary Care Provider MD Raul Quan Attending Provider KB Perea Attending Provider MD Raul Quan Admit Provider DO Shailesh Dunham Primary Care Provider KB Perea Attending Provider MD Raul Quan Admit Provider MD Raul Quan Attending Provider SHAILESH DUNHAM Primary Care Physician [phone] IVELISSE FRANCIS Admitting Unavailable IVELISSE FRANCIS Attending Unavailable ENRICO, DR MEADE Primary Care Unavailable IVELISSE FRANCIS Consulting Unavailable ENRICO, DR MEADE Admitting Unavailable ENRICO, DR MEADE Attending Unavailable ENRICO, DR MEADE Referring Unavailable BALL, DR MEADE Primary Care Unavailable ENRICO, DR [...] Care Unavailable REQUEST, NONE LISTED Consulting Unavaila Shailesh Parham Unavailable DO Shailesh Dunham Primary Care Provider MD Raul Quan Attending Provider DO Shailesh Dunham Primary Care Provider MD Raul Quan Attending Provider MD Raul Quan Admit Provider [phone] DO Shailesh Dunham Primary Care Provider [phone] MD Raul Quan Attending Provider [phone] Lue, Ivelisse MSilvestre Attending Unavailable Lue, Ivelisse MSilvestre Attending Unavailable Lue, Ivelisse MSilvestre Attending Unavailable Lue, Ivelisse MSilvestre Attending Unavailable Lue, Ivelisse M. Attending Unavailable Lue, Ivelisse MSilvestre Attending Unavailable Lue, Ivelisse MSilvestre Attending Unavailable Lue, Ivelisse M. Admitting Unavailable Lue, Ivelisse MSilvestre Attending Unavailable Lue, Ivelisse M. Referring Unavailable Lue, Ivelisse MSilvestre Attending Unavailable Lue, Ivelisse M. Attending Unavailable DO Shailesh Dunham Primary Care Provider MD Raul Quan Attending Provider CLIFTON CORREA Attending Unavailable SHAILESH DUNHAM Referring Unavailable MD Sheri Christiansen Attending Provider [phone] DO Shailesh Dunham Primary Care Provider AMBER BRYANT Referring Unavailable AMBER BRYANT Referring Unavailable MARIA EUGENIA BERRY Attending Unavailable AMBER BRYANT Attending Unavailable AMBER BRYANT Attending Unavailable AMBER BRYANT Admitting Unavailable AMBER BRYANT Attending Unavailable AMBER BRYANT Attending Unavailable AMBER BRYANT Referring Unavailable MARIA EUGENIA BERRY Referring Unavailable MARIA EUGENIA BERRY Referring Unavailable MD Raul Quan Attending Provider [phone] Shailesh Dunham Primary Care Unavailable Raul Quan Admitting Unavailable Raul Quan Attending Unavailable Shailesh Dunham Primary Care Unavailable Avelina, Raul Admitting Unavailable Raul Quan Attending Unavailable Shailesh Dunham Primary Care Unavailable Елена Sheri Admitting Unavailable Sheri Christiansen Attending Unavailable Shailesh Dunham Primary Care Unavailable Елена, Sheri Admitting Unavailable Sheri Christiansen Attending Unavailable DO Shailesh Dunham Primary Care Provider [phone] MD Sheri Christiansen Attending Provider Allergies Allergy Classification Reported Allergen(s) Allergy Type Date of Onset Reaction(s) Facility Angiotensin Converting Enzyme (SHALINI) Inhibitors (2 sources) Angiotensin Converting Enzyme (Shalini) Inhibitors Drug Allergy 08-27-19 24 [facility] Tetanus immune globulin (2 sources) Tetanus immune globulin Drug Allergy 08-27-19 24 Unknown Reaction [facility] (5 sources) Angiotensin Converting Enzyme (Shalini) Inhibitors Drug allergy Unknown [facility] Other (6 sources) Tetanus vaccine; Translations: [tetanus toxoid] Drug allergy Unknown [facility] Repository (20 sources) Angiotensin Converting Enzyme (Shalini) Inhibitors; Translations: [Angiotensin-conv erting enzyme inhibitor agent (substance)] Allergy to substance 05-09-19 16 Hives, [facility] (8 sources) Contrast media Allergy to substance 10-07-19 22 [facility] (20 sources) Tetanus immune globulin; Translations: [TETANUS IMMUNE GLOBULIN] Drug Allergy 02-24-20 19 Unknown Reaction [facility] (20 sources) Angiotensin-conve rting enzyme inhibitor agent Drug allergy Unknown [facility] Other (2 sources) Tetanus toxoid specific immunoglobulin E Drug allergy Unknown [facility] Other (12 sources) Contrast media; Translations: [Contrast Dye] Allergy to substance unknown [facility] (13 sources) Iodine; Translations: [iodine] Drug Allergy 10-27-19 22 Unknown (qualifier value) [facility] (11 sources) tetanus toxoid vaccine, inactivated; Translations: [tetanus toxoid] Drug Allergy Unknown (qualifier value) [facility] (1 source) Iodine Drug Allergy [facility] Repository (1 source) Iodine (And Iodine Containting Drugs) Drug allergy (disorder) [facility] (1 source) Tetanus AND Diphtheria Tox,Adult Drug allergy (disorder) [facility] (20 sources) Tetanus vaccine Drug allergy Unknown [facility] Other (17 sources) Iodinated Contrast Media; Translations: [IODINATED CONTRAST MEDIA] Allergy to substance 10-27-19 22 [facility] (13 sources) tetanus toxoid, adsorbed; Translations: [tetanus toxoid, adsorbed] Allergy to substance 04-26-19 Unknown Reaction [facility] (1 source) GADOLINIUM-CONTAI MAYA CONTRAST MEDIA; Translations: [GADOLINIUM-CONTA INING CONTRAST MEDIA] Propensity to adverse reactions to drug (disorder) 05-09-19 16 [facility] Repository (1 source) TETANUS AND DIPHTHERIA TOXOIDS; Translations: [TETANUS AND DIPHTHERIA TOXOIDS] Propensity to adverse reactions to drug (disorder) 10-27-19 22 [facility] Repository (1 source) TETANUS VACCINES AND TOXOID; Translations: [TETANUS VACCINES AND TOXOID] Propensity to adverse reactions to drug (disorder) 05-16-19 16 [facility] Repository (1 source) ALLERGIES NOT ON FILE; Translations: [ALLERGIES NOT ON FILE] Propensity to adverse reactions (disorder) [facility] Repository Medications Current Medications Medication Drug Class(es) Dates Sig (Normalized) Sig (Original) apixaban 2.5 mg oral tablet (4 sources) Factor Xa Inhibitor Start: 10-19-2023 take 1 tablet by mouth twice daily Apixaban (Eliquis) 2.5 mg tablet Active 2.5 MG PO Twice daily October 19, 2023 12:00am carvedilol 25 mg oral tablet (20 sources) alpha-Adrenergic Patel, beta-Adrenergic Patel Start: 10-24-2023 take 1 tablet by mouth twice daily Carvedilol Active 0 .ROUTE .COMPLEX 180 October 24, 2023 5:27pm TAKE 1 TABLET BY MOUTH TWICE A DAY FOR 30 DAYS Start: 04-26-2023 End: 10-24-2023 take 25 mg by mouth twice daily Carvedilol Discontinue d 25 MG PO Twice daily 180 90 June 22, 2023 10:13am October 24, 2023 5:27pm Start: 04-14-2022 End: 04-26-2023 take 3.125 mg [...] Activ e cholecalciferol 0.025 mg oral capsule (20 sources) [...] daily Isosorbide Mononitrate Discontinued 0 .ROUTE .COMPLEX 90 June 28, 2023 1:30pm July 20, 2023 10:19am TAKE 1 TABLET BY MOUTH EVERY DAY Start: 02-23-2019 End: 04-26-2023 take 30 mg by mouth once daily Isosorbide Mononitrate Discontinued 30 MG PO Daily February 23, 2019 1:00am April 26, 2023 6:54pm Isosorbide [place] itrate Active isosorbide dinitrate 30 mg oral tablet (11 sources) Nitrate Vasodilator Start: 03-28-2019 take 30 mg by mouth once daily isosorbide dinitrate 30 mg, Oral, Daily, Refills(s) 0 Start Date: 03/28/19 Status: Ordered losartan potassium 50 mg oral tablet (20 sources) Angiotensin 2 Receptor Patel Start: 10-22-2023 take 25 mg by mouth once daily Losartan Active 25 MG PO Daily October 22, 2023 1:27pm unless BP is greater than 140 Start: 09-03-2023 End: 10-22-2023 take 50 mg by mouth once daily Losartan Discontinued 5 0 MG PO Daily September 03, 2023 8:47am October 22, 2023 1:27pm Start: 07-26-2023 End: 09-03-2023 take 1 tablet [...] acid 7540 MG / polyethylene glycol 3350 08338 MG / potassium chloride 1200 MG / sodium ascorbate 48031 MG / sodium chloride 3200 MG Powder for Oral Solution) / 1 (polyethylene glycol 3350 435658 MG / potassium chloride 1000 MG / sodium chloride 2000 MG / sodium sulfate 9000 MG Powder for Oral Solution) } Pack [Plenvu] (6 sources) Osmotic Laxative, Vitamin C Start: 02-16-2019 Plenvu 140 GM DOSE 1 AT 4:00 PM, DOSE 2 POUCH A &B AT 11:00 PM Orally TWICE A DAY for 1 days PLEASE CHECK ALLERGIES Feb, Not-Taking aspirin 81 mg delayed release oral tablet (20 sources) Platelet Aggregation Inhibitor, Nonsteroidal Anti-inflammatory Drug Start: 07-01-2022 End: 10-19-2023 take 81 mg by mouth once daily at bedtime Aspirin Discontinued 81 MG PO Daily at bedtime July 01, 2022 12:00am October 19, 2023 4:35pm Start: 01-28-2021 take 1 mg by mouth [...] 1 tablet Orally Once a day Active Calcium (13 sources) Phosphate Binder, Calcium Calciu m Not-Taking Calcium Active calcium citrate 1040 mg oral tablet (20 sources) Start: 07-01-2022 End: 06-22-2023 take 600 mg by mouth twice daily Calcium Citrate Discontinued 600 MG PO Twice daily July 01, 2022 12:00am June 22, 2023 12:14pm Start: 02-11-2022 take 2 tablets by mo [facility] three times daily calcium (as calcium citrate) 200 mg oral tablet 180 EA, TAKE 2 TABLETS BY MOUTH 3 TIMES A DAY, Refills(s) 0 Start Date: 02/11/22 Status: Ordered cefdinir 300 mg oral capsule (4 sources) Cephalosporin Antibacterial Start: 10-19-2023 End: 11-15-2023 take 300 mg by mouth twice daily Cefdinir Discontinued 300 MG PO Twice daily October 19, 2023 12:00am November 15, 2023 10:16am clopidogrel 75 mg oral tablet (20 sources) P2Y12 Platelet Inhibitor Start: 09-16-2021 End: 04-26-2023 take 75 mg by mouth once daily in the morning Clopidogrel Discontinued 75 MG PO Every morning July 01, 2022 12:00am April 26, 2023 1:04pm diphenhydrAMINE hydrochloride 50 mg oral capsule (20 sources) Histamine-1 Receptor Antagonist Start: 06-15-2023 End: 06-22-2023 Diphenhydramine Hcl Discontinued 50 MG PO Once 1 June 15, 2023 12:00am June 22, 2023 12:16pm Orally 60 minutes prior to test Start: 05-27-2023 End: 06-22-2023 Diphenhydramine Hcl (Benadry l Allergy) 50 mg tablet Discontinued 50 MG PO Once May 27, 2023 12:00am June 22, 2023 12:14pm Orally 60 minutes prior to test doxazosin 4 mg oral tablet (20 sources) alpha-Adrenergic Patel Start: 02-23-2019 End: 10-06-2021 take 4 mg by mouth once daily Doxazosin Discontinued 4 MG PO Daily February 23, 2019 1:00am October 06, 2021 10:38am hydroCHLOROthiazide 25 mg oral tablet (4 sources) Thiazide Diuretic Start: 10-19-2023 End: 11-23-2023 take 25 mg by mouth once daily Hydrochlorothiazide Discontinued 25 MG PO Daily October 19, 2023 12:00am November 23, 2023 10:30am On Hold: None omeprazole 20 mg delayed release oral capsule (7 sources) Proton Pump Inhibitor Start: 08-27-2023 End: 10-19-2023 take 20 mg by mouth once daily Omeprazole Discontinued 20 MG PO Daily August 27, 2023 12:00am October 19, 2023 4:35pm oxybutynin chloride 5 mg oral tablet (19 sources) Cholinergic Muscarinic Antagonist Start: 04-26-2023 End: 06-22-2023 take 5 mg by mouth every eight hours Oxybutynin Chloride Discontinued 5 MG PO Every 8 hours April 26, 2023 1:00am June 22, 2023 12:15pm take 1 tablet by freddy every eight hours as needed oxyBUTYnin Chloride 5 MG 1 tablet Orally every 8 hours as needed Active potassium chloride 10 meq extended release oral capsule (4 sources) Start: 10-19-2023 End: 11-23-2023 take 10 mEq by mouth twice daily Potassium Chloride Discontinued 10 MEQ PO Twice daily October 19, 2023 12:00am November 23, 2023 10:30am On Hold: None predniSONE 50 mg oral tablet (20 sources) Start: 06-15-2023 End: 06-22-2023 Prednisone Discontinued 50 MG PO .COMPLEX 3 June 15, 2023 12:00am [...] test. tamsulosin hydrochloride 0.4 mg oral capsule (19 sources) alpha-Adrenergic Patel Start: 04-26-2023 End: 06-22-2023 take 0.4 mg by mouth once daily Tamsulosin Discontinued 0.4 MG PO Daily April 26, 2023 1:00am June 22, 2023 12:15pm take 1 capsule by mo [facility] every twenty-four hours Tamsulosin HCl 0.4 MG 1 capsule Orally Once a day Active Problems Active Problems Problem Classification Problem Date Documented Da te Episodic/Chronic Acute myocardial infarction (9 sources) Myocardial infarction; Translations: [Non-ST elevation (NSTEMI) myocardial infarction] 10-18-2023 Chronic Allergic reactions (12 sources) Allergy to contrast media; Translations: [Radiographic [...] calculus of kidney] Onset: 04-15-2022 03-28-2019 Episodic Cardiac dysrhythmias (12 sources) Atrial fibrillation; Translations: [Unspecified atrial fibrillation] 10-18-2023 Chronic Congestive heart failure; nonhypertensive (13 sources) Acute exacerbation of chronic congestive heart failure; Translations: [Acute on chronic diastolic (congestive) heart failure] 10-17-2023 Chronic Coronary atherosclerosis and other heart disease (20 sources) Coronary arteriosclerosis; Translations: [Atherosclerotic heart disease of [place] coronary artery without angina pectoris] Onset: 11-14-2021 [...] bone disease and musculoskeletal deformities (10 sources) Paget's disease of pelvis; 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] 06-22-2023 Chronic Other bone disease and musculoskeletal deformities (18 sources) Osteitis deformans of other bones; Translations: [...] conditions (not mental disorders or infectious disease) (20 sources) Computed tomography result abnormal; Translations: [Abnormal [...] of mental health and substance abuse codes (16 sources) Ex-smoker; Translations: [Personal history of nicotine dependence] Onset: 11-14-2021 08-15-2019 Episodic Unclassified (11 sources) Asymptomatic microscopic hematuria 02-20-2020 Unclassified (4 sources) CONTACT W/AND (SUSP) EXPOS COVID-19; Translations: [CONTACT W/AND (SUSP) EXPOS COVID-19] Onset: 12-04-2021 Unclassified (1 source) ABDOMINAL AA W/O RUPTURE UNSPCIFIED; Translations: [ABDOMINAL AA W/O RUPTURE UNSPCIFIED] Onset: 02-07-2022 Unclassified (3 sources) SUBACUTE COUGH; Translations: [SUBACUTE COUGH] Onset: 12-10-2021 Unclassified (2 sources) New Patient; Translations: [New Patient] Onset: 08-13-2023 Unclassified (1 source) Abdominal aortic aneurysm, without rupture, unspecified; Translations: [Abdominal aortic aneurysm, without rupture, unspecified] Onset: 06-16-2023 Past or Other Problems Problem Classification Problem [...] 2 Episodic Other aftercare (1 source) 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; Translations: [OTH USP CURRENT DRUG THERAPY] Onset: 2 Episodic Other aftercare (1 source) 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; Translations: [USP CURRNT USE ANTICOAGULANTS] Onset: 2 Episodic Other aftercare (1 source) [facility] (current) use of aspirin; Translations: [USP CURRENT USE OF ASPIRIN] Onset: 2 Episodic [...] Test Name Value Interpretation Reference Range Facility US carotid doppler BIon 09-0 US carotid doppler BI [facility] [address] [place] [address] Ultrasound Report Signed Patient: Chico Baker MR#: [id number] 284 : 1940 Acct:[id number] Age/Sex: 83 / M ADM Date: 11/15/23 Loc: [facility] Room: Type: [facility] Attending Dr: Raul Quan MD Ordering Provider: Raul Quan MD Date of Service: 11/15/23 US/US carotid doppler BI: I65.23 - Occlusion and stenosis of bilateral carotid ranjeet... Copies to: Raul Quan MD CAROTID DUPLEX INDICATION: Known carotid occlusive disease PROCEDURE: Color-flow duplex scanning is used to interrogate the extracranial carotid arterial system, as well as both vertebral arteries. Both carotid bifurcations show some smooth homogeneous plaque formation. The proximal right internal carotid artery shows a highest peak systolic velocity of 120 cm/s with an end-diastolic velocity of 24.5 cm/s . The mid internal carotid artery measures 77.8 cm/s peak systolic with an end diastolic velocity of 17.5 cm/s . The distal segment measures 129 cm/s peak systolic with an end diastolic velocity of 25.1 cm/s . The velocities of the right common carotid artery are 44.7 cm/s peak systolic and 6.75 cm/s end-diastolic and 70.2 cm/s peak systolic and 8.62 cm/s end diastolic distally. The peak systolic velocity ratio of the internal to the common carotid artery is 1.71 . The external carotid artery measures 75.7 cm/s peak systolic. The right vertebral artery is patent at 62.7 cm/s peak systolic with antegrade flow. The proximal left internal carotid artery shows a highest peak systolic velocity of 41.7 cm/s with an end-diastolic velocity of 10.7 cm/s . The mid internal carotid artery measures 69.3 cm/s peak systolic with an end diastolic velocity of 18.2 cm/s . The distal segment measures 73.2 cm/s peak systolic with an end diastolic velocity of 17.2 cm/s . The velocities of the left common carotid artery are 45.5 cm/s peak systolic and 9.81 cm/s end-diastolic and 40 cm/s peak systolic and 11.3 cm/s end diastolic distally. The peak systolic velocity ratio of the internal to the common carotid artery is 1.73 . The external carotid artery is not visualized. The left vertebral artery is patent at 75.7 cm/s peak systolic with antegrade flow. US/US carotid doppler BI IMPRESSION: Moderate plaque formation of the right carotid origin but no hemodynamically significant stenosis. Good result after left transcarotid stenting with no hemodynamically significant residual or recurrent stenosis. Both vertebral arteries are patent with antegrade flow. Impression dictated by: Raul Quan M.D.11/15/2023 10:27 AM Dictation Location: [place] [address] Tech: Jennifer Mancini Transcribed By: ALEX 11/15/23 1027 Dictated By: Raul Quan MD 11/15/23 1025 Signed By: 11/15/23 1027 [facility] Office Visiton 10-27-2023 Follow-up visit [id number] [address] 1940 M Date Provider Department Center 10/27/2023 [id number] BRYANT DCC ONC DCC Family History Problem Relation Age of Onset Heart disease Mother No Known Problems Father No Known Problems Sister Family Status - Relation Status Age at Mother Father Sister Alive Level of Service:86301 [place] POSTOP FOLLOW UP VISIT RELATED TO ORIGINAL PX Reason for Visit and Comments: Post-op [483] - Here for post-op visit - S/P robot 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 Normal [facility] Basophils Auto (Bld) [#/Vol] on 10-26-2023 Basophils (Bld) [#/Vol] 0.1 10 3/uL 0.0-0.1 [facility] Basophils/100 WBC Auto (Bld) on 10-26-2023 Basophils/100 WBC (Bld) 0.5 % 0.2-2.0 [facility] Eosinophils/100 WBC Auto (Bl d)on 10-26-2023 Eosinophils/100 WBC (Bld) 2.9 % 0.9-7.0 [facility] Erythrocyte distribution wid th Auto (RBC) [Ratio]on 10-26-2023 Erythrocyte distribution width (RBC) [Ratio] 12.7 % 11.0-15.0 [facility] Estimated glomerular filtrat ion rate (GFR) non- Americanon 10-26-2023 GFR/1.73 sq M.predicted among non-blacks MDRD (S/P/Bld) [Vol rate/Area] mL/min/{1.73_m2} >=60 [facility] Globulin Calc (S) [Mass/Vol] on 10-26-2023 Globulin (S) [Mass/Vol] 3.9 g/dL [facility] Hematocrit Auto (Bld) [Volum e fraction]on 10-26-2023 Hematocrit (Bld) [Volume fraction] 32.4 % Low 42.0-54.0 [facility] Hemoglobin [Mass/volume] in Bloodon 10-26-2023 Hemoglobin (Bld) [Mass/Vol] 10.4 g/dL Low 14.0-18.0 [facility] Laboratory - Chemistry and C hemistry - challengeon 10-26-2023 Albumin [Mass/Vol] 3.1 g/dL Low 3.4-5.0 [facility] ALP [Catalytic activity/Vol] 106 U/L 46-116 [facility] ALT [Catalytic activity/Vol] 19 U/L 16-63 [facility] AST [Catalytic activity/Vol] 16 U/L 15-37 [facility] Bilirubin [Mass/Vol] 0.5 mg/dL 0.2-1.0 [facility] Calcium [Mass/Vol] 8.8 mg/dL 8.5-10.1 [facility] Chloride [Moles/Vol] 100 mmol/L 98-107 [facility] CO2 [Moles/Vol] 29.0 mmol/L 21.0-32.0 [facility] Creatinine [Mass/Vol] 0.95 mg/dL 0.70-1.30 [facility] GFR/1.73 sq M.predicted MDRD (S/P/Bld) [Vol rate/Area] mL/min/{1.73_m2} >=60 [facility] Glucose [Mass/Vol] 134 mg/dL High 74-106 [facility] Potassium [Moles/Vol] 4.5 mmol/L 3.5-5.1 [facility] Protein [Mass/Vol] 7.0 g/dL 6.4-8.2 [facility] Sodium [Moles/Vol] 136 mmol/L 136-145 [facility] TSH Qn 2.068 m[IU]/L 0.358-3.74 0 [facility] Urea nitrogen [Mass/Vol] 14.0 mg/dL 7.0-18.0 [facility] Urea nitrogen/Creatinine [Mass ratio] 14.7 mg/mg [facility] Laboratory - Hematology and Cell countson 10-26-2023 Immature granulocytes/100 WBC (Bld) 0.5 % 0.0-0.5 [facility] Leukocytes [#/volume] correc shyann for nucleated erythrocytes in Blood by Automated counon 10-26-2023 WBC corrected for nucl RBC Auto (Bld) [#/Vol] 12.4 10 3/uL High 4.0-11.0 [facility] Lymphocytes Auto (Bld) [#/Vo l]on 10-26-2023 Lymphocytes (Bld) [#/Vol] 1.4 10 3/uL 1.2-3.8 [facility] Lymphocytes/100 WBC Auto (Bl d)on 10-26-2023 Lymphocytes/100 WBC (Bld) 11.6 % Low 20.5-60.0 [facility] MCH Auto (RBC) [Entitic mass ]on 10-26-2023 MCH (RBC) [Entitic mass] 30.0 pg 25.9-34.0 [facility] MCHC Auto (RBC) [Mass/Vol]on 10-26-2023 MCHC (RBC) [Mass/Vol] 32.1 g/dL 29.9-35.2 [facility] MCV Auto (RBC) [Entitic vol] on 10-26-2023 MCV (RBC) [Entitic vol] 93.4 fL 80.0-94.0 [facility] Monocytes Auto (Bld) [#/Vol] on 10-26-2023 Monocytes (Bld) [#/Vol] 1.4 10 3/uL High 0.3-0.8 [facility] Monocytes/100 WBC Auto (Bld) on 10-26-2023 Monocytes/100 WBC (Bld) 11.0 % 1.7-12.0 [facility] Neutrophils Auto (Bld) [#/Vo l]on 10-26-2023 Neutrophils (Bld) [#/Vol] 9.1 10 3/uL High 1.4-6.5 [facility] Neutrophils/100 WBC Auto (Bl d)on 10-26-2023 Neutrophils/100 WBC (Bld) 73.5 % 43.0-75.0 [facility] No Panel Informationon 10-25 Eosinophils # (Auto) 0.4 10 3/uL 0.0-0.7 [facility] Immature Granulocyte # (Auto) 0.06 10 3/uL High 0.00-0.03 [facility] Platelet mean volume Auto (B ld) [Entitic vol]on 10-26-2023 Platelet mean volume (Bld) [Entitic vol] 9.2 fL Low 9.5-13.5 [facility] Platelets Auto (Bld) [#/Vol] on 10-26-2023 Platelets (Bld) [#/Vol] 209 10 3/uL 150-450 [facility] RBC Auto (Bld) [#/Vol]on RBC (Bld) [#/Vol] 3.47 10 6/uL Low 4.70-6.10 [facility] Serum or plasma albumin/glob ulin mass ratioon 10-26-2023 Albumin/Globulin [Mass ratio] 0.8 {ratio} [facility] Serum or plasma anion gap de terminationon 10-26-2023 Anion gap [Moles/Vol] 11.5 mmol[facility] Basophils Auto (Bld) [#/Vol] on 10-17-2023 Basophils (Bld) [#/Vol] 0.0 10 3/uL 0.0-0.1 [facility] Basophils/100 WBC Auto (Bld) on 10-17-2023 Basophils/100 WBC (Bld) 0.2 % 0.2-2.0 [facility] Eosinophils/100 WBC Auto (Bl d)on 10-17-2023 Eosinophils/100 WBC (Bld) 1.6 % 0.9-7.0 [facility] Erythrocyte distribution wid th Auto (RBC) [Ratio]on 10-17-2023 Erythrocyte distribution width (RBC) [Ratio] 12.2 % 11.0-15.0 [facility] Estimated glomerular filtrat ion rate (GFR) non- Americanon 10-17-2023 GFR/1.73 sq M.predicted among non-blacks MDRD (S/P/Bld) [Vol rate/Area] mL/min/{1.73_m2} >=60 [facility] Globulin Calc (S) [Mass/Vol] on 10-17-2023 Globulin (S) [Mass/Vol] 3.5 g/dL [facility] Hematocrit Auto (Bld) [Volum e fraction]on 10-17-2023 Hematocrit (Bld) [Volume fraction] 29.1 % Low 42.0-54.0 [facility] Hemoglobin [Mass/volume] in Bloodon 10-17-2023 Hemoglobin (Bld) [Mass/Vol] 9.6 g/dL Low 14.0-18.0 [facility] Laboratory - Chemistry and C hemistry - challengeon 10-17-2023 Albumin [Mass/Vol] 2.8 g/dL Low 3.4-5.0 [facility] ALP [Catalytic activity/Vol] 99 U/L 46-116 [facility] ALT [Catalytic activity/Vol] 33 U/L 16-63 [facility] AST [Catalytic activity/Vol] 15 U/L 15-37 [facility] Bilirubin [Mass/Vol] 0.8 mg/dL 0.2-1.0 [facility] Calcium [Mass/Vol] 8.4 mg/dL Low 8.5-10.1 [facility] Chloride [Moles/Vol] 96 mmol/L Low 98-107 [facility] CO2 [Moles/Vol] 30.9 mmol/L 21.0-32.0 [facility] Creatinine [Mass/Vol] 0.84 mg/dL 0.70-1.30 [facility] GFR/1.73 sq M.predicted MDRD (S/P/Bld) [Vol rate/Area] mL/min/{1.73_m2} >=60 [facility] Glucose [Mass/Vol] 103 mg/dL 74-106 [facility] Natriuretic peptide B (Bld) [Mass/Vol] 1963.0 pg/mL High <=1800.0 [facility] Comment on above: RESULTS CALLED TO IC U Eder Elaine, RN @BY Fuad Carmona MLT at 0617 Potassium [Moles/Vol] 3.8 mmol/L 3.5-5.1 [facility] Protein [Mass/Vol] 6.3 g/dL Low 6.4-8.2 [facility] Sodium [Moles/Vol] 130 mmol/L Low 136-145 [facility] Urea nitrogen [Mass/Vol] 28.0 mg/dL High 7.0-18.0 [facility] Urea nitrogen/Creatinine [Mass ratio] 33.3 mg/mg [facility] Laboratory - Hematology and Cell countson 10-17-2023 Immature granulocytes/100 WBC (Bld) 0.4 % 0.0-0.5 [facility] Leukocytes [#/volume] correc shyann for nucleated erythrocytes in Blood by Automated counon 10-17-2023 WBC corrected for nucl RBC Auto (Bld) [#/Vol] 9.1 10 3/uL 4.0-11.0 [facility] Lymphocytes Auto (Bld) [#/Vo l]on 10-17-2023 Lymphocytes (Bld) [#/Vol] 1.2 10 3/uL 1.2-3.8 [facility] Lymphocytes/100 WBC Auto (Bl d)on 10-17-2023 Lymphocytes/100 WBC (Bld) 13.5 % Low 20.5-60.0 [facility] MCH Auto (RBC) [Entitic mass ]on 10-17-2023 MCH (RBC) [Entitic mass] 30.2 pg 25.9-34.0 [facility] MCHC Auto (RBC) [Mass/Vol]on 10-17-2023 MCHC (RBC) [Mass/Vol] 33.0 g/dL 29.9-35.2 [facility] MCV Auto (RBC) [Entitic vol] on 10-17-2023 MCV (RBC) [Entitic vol] 91.5 fL 80.0-94.0 [facility] Monocytes Auto (Bld) [#/Vol] on 10-17-2023 Monocytes (Bld) [#/Vol] 1.1 10 3/uL High 0.3-0.8 [facility] Monocytes/100 WBC Auto (Bld) on 10-17-2023 Monocytes/100 WBC (Bld) 12.0 % 1.7-12.0 [facility] Neutrophils Auto (Bld) [#/Vo l]on 10-17-2023 Neutrophils (Bld) [#/Vol] 6.6 10 3/uL High 1.4-6.5 [facility] Neutrophils/100 WBC Auto (Bl d)on 10-17-2023 Neutrophils/100 WBC (Bld) 72.3 % 43.0-75.0 [facility] No Panel Informationon 10-16 Eosinophils # (Auto) 0.2 10 3/uL 0.0-0.7 [facility] Immature Granulocyte # (Auto) 0.04 10 3/uL High 0.00-0.03 [facility] Troponin I High Sensitivity 180.4 pg/mL High 4.0-76.1 [facility] Comment on above: RESULTS CALLED TO MIMI Elaine RN @BY Fuad Carmona MLT at 0617CUT-OFF POINTS HAVE BEEN ESTABLISHED BASED ON THE FOURTHUNIVERSAL DEFINITION OF MYOCARDIAL INFARCTION. THE UPPERREFERENCE LIMIT (URL) OF TROPONIN, DEFINED THE 99THPERCENTILE OF cTnI DISTRIBUTION IN A REFERENCE POPULATION,HAS BEEN CONFIRMED THE DECISION THRESHOLD FOR MIDIAGNOSIS.99TH PERCENTILE = 76.2 PG/MLNOTE: HIGH-SENSITIVITY TROPONIN ASSAY IS NOT INTENDED TO BEUSED IN ISOLATION BUT SHOULD BE INTERPRETED IN CONJUNCTIONWITH OTHER DIAGNOSTIC AND CLINICAL INFORMATION. Platelet mean volume Auto (B ld) [Entitic vol]on 10-17-2023 Platelet mean volume (Bld) [Entitic vol] 9.7 fL 9.5-13.5 [facility] Platelets Auto (Bld) [#/Vol] on 10-17-2023 Platelets (Bld) [#/Vol] 191 10 3/uL 150-450 [facility] RBC Auto (Bld) [#/Vol]on RBC (Bld) [#/Vol] 3.18 10 6/uL Low 4.70-6.10 [facility] Serum or plasma albumin/glob ulin mass ratioon 10-17-2023 Albumin/Globulin [Mass ratio] 0.8 {ratio} [facility] Serum or plasma anion gap de terminationon 10-17-2023 Anion gap [Moles/Vol] 6.9 mmol/L [facility] Basophils Auto (Bld) [#/Vol] on 10-16-2023 Basophils (Bld) [#/Vol] 0.0 10 3/uL 0.0-0.1 [facility] Basophils/100 WBC Auto (Bld) on 10-16-2023 Basophils/100 WBC (Bld) 0.2 % 0.2-2.0 [facility] Basophils/100 WBC Manual cnt (Bld)on 10-16-2023 Basophils/100 WBC (Bld) 1.0 % 0.2-2.0 [facility] Eosinophils/100 WBC Auto (Bl d)on 10-16-2023 Eosinophils/100 WBC (Bld) 0.3 % Low 0.9-7.0 [facility] Eosinophils/100 WBC Manual c nt (Bld)on 10-16-2023 Eosinophils/100 WBC (Bld) 0.0 % Low 0.9-7.0 [facility] Erythrocyte distribution wid th Auto (RBC) [Ratio]on 10-16-2023 Erythrocyte distribution width (RBC) [Ratio] 12.4 % 11.0-15.0 [facility] Estimated glomerular filtrat ion rate (GFR) non- Americanon 10-16-2023 GFR/1.73 sq M.predicted among non-blacks MDRD (S/P/Bld) [Vol rate/Area] mL/min/{1.73_m2} >=60 [facility] Globulin Calc (S) [Mass/Vol] on 10-16-2023 Globulin (S) [Mass/Vol] 3.7 g/dL [facility] Hematocrit Auto (Bld) [Volum e fraction]on 10-16-2023 Hematocrit (Bld) [Volume fraction] 30.5 % Low 42.0-54.0 [facility] Hemoglobin [Mass/volume] in Bloodon 10-16-2023 Hemoglobin (Bld) [Mass/Vol] 10.2 g/dL Low 14.0-18.0 [facility] Laboratory - Chemistry and C hemistry - challengeon 10-16-2023 Albumin [Mass/Vol] 2.9 g/dL Low 3.4-5.0 [facility] ALP [Catalytic activity/Vol] 98 U/L 46-116 [facility] ALT [Catalytic activity/Vol] 45 U/L 16-63 [facility] AST [Catalytic activity/Vol] 19 U/L 15-37 [facility] Bilirubin [Mass/Vol] 0.8 mg/dL 0.2-1.0 [facility] Calcium [Mass/Vol] 8.3 mg/dL Low 8.5-10.1 [facility] Chloride [Moles/Vol] 97 mmol/L Low 98-107 [facility] CO2 [Moles/Vol] 31.7 mmol/L 21.0-32.0 [facility] Creatinine [Mass/Vol] 0.84 mg/dL 0.70-1.30 [facility] GFR/1.73 sq M.predicted MDRD (S/P/Bld) [Vol rate/Area] mL/min/{1.73_m2} >=60 [facility] Glucose [Mass/Vol] 94 mg/dL 74-106 [facility] Natriuretic peptide B (Bld) [Mass/Vol] 4170.0 pg/mL High <=1800.0 [facility] Comment on above: RESULTS CALLED TO PRECIOUS MURPHY RN Potassium [Moles/Vol] 3.5 mmol/L 3.5-5.1 [facility] Protein [Mass/Vol] 6.6 g/dL 6.4-8.2 [facility] Sodium [Moles/Vol] 132 mmol/L Low 136-145 [facility] Urea nitrogen [Mass/Vol] 31.0 mg/dL High 7.0-18.0 [facility] Urea nitrogen/Creatinine [Mass ratio] 36.9 mg/mg [facility] Laboratory - Hematology and Cell countson 10-16-2023 Lymphocytes/100 WBC (Bld) 12.0 % Low 20.5-60.0 [facility] Monocytes/100 WBC (Bld) 11.0 % 1.7-12.0 [facility] Immature granulocytes/100 WBC (Bld) 0.3 % 0.0-0.5 [facility] Leukocytes [#/volume] correc shyann for nucleated erythrocytes in Blood by Automated counon 10-16-2023 WBC corrected for nucl RBC Auto (Bld) [#/Vol] 11.6 10 3/uL High 4.0-11.0 [facility] Lymphocytes Auto (Bld) [#/Vo l]on 10-16-2023 Lymphocytes (Bld) [#/Vol] 1.4 10 3/uL 1.2-3.8 [facility] Lymphocytes/100 WBC Auto (Bl d)on 10-16-2023 Lymphocytes/100 WBC (Bld) 14.6 % Low 20.5-60.0 [facility] MCH Auto (RBC) [Entitic mass ]on 10-16-2023 MCH (RBC) [Entitic mass] 30.4 pg 25.9-34.0 [facility] MCHC Auto (RBC) [Mass/Vol]on 10-16-2023 MCHC (RBC) [Mass/Vol] 33.4 g/dL 29.9-35.2 [facility] MCV Auto (RBC) [Entitic vol] on 10-16-2023 MCV (RBC) [Entitic vol] 91.0 fL 80.0-94.0 [facility] Monocytes Auto (Bld) [#/Vol] on 10-16-2023 Monocytes (Bld) [#/Vol] 1.1 10 3/uL High 0.3-0.8 [facility] Monocytes/100 WBC Auto (Bld) on 10-16-2023 Monocytes/100 WBC (Bld) 12.3 % High 1.7-12.0 [facility] Neutrophils Auto (Bld) [#/Vo l]on 10-16-2023 Neutrophils (Bld) [#/Vol] 6.7 10 3/uL High 1.4-6.5 [facility] Neutrophils/100 WBC Auto (Bl d)on 10-16-2023 Neutrophils/100 WBC (Bld) 72.3 % 43.0-75.0 [facility] No Panel Informationon 10-15 Absolute Basophils (Manual) 0.11 10 3/uL High 0.00-0.10 [facility] Eosinophils # (Manual) 0.00 10 3/uL 0.00-0.70 [facility] Lymphocytes # (Manual) 1.39 10 3/uL 1.20-3.80 [facility] Monocytes # (Manual) 1.27 10 3/uL High 0.30-0.80 [facility] Neutrophils # (Manual) 8.81 10 3/uL High 1.4-6.5 [facility] Aerobic Culture Result 1 \R\ Result 3\R\ EXCEPTIONAL STUDENT EDUCATION TEACHER [facility] Comment on above: [facility], Aerobic Culture Result 2 \R\ Result 4\R\ EXCEPTIONAL STUDENT EDUCATION TEACHER [facility] Comment on above: [facility], Gram Stain Comment (LAB) [facility] Gram Stain Result 1 Positive [facility] Comment on above: [facility], Gram Stain Result 2 Negative [facility] Comment on above: [facility], Miscellaneous Test Comment See comment [facility] Comment on above: Specimen Source: S - Sputum - Sputum - 300.100 Sputum Other Cells \R\ White Blood Cells [facility] Sputum Other Cells 2 \R\ Epithelial Cell s\R\ Few [facility] Comment on above: [facility], Eosinophils # (Auto) 0.0 10 3/uL 0.0-0.7 [facility] Immature Granulocyte # (Auto) 0.03 10 3/uL 0.00-0.03 [facility] Troponin I High Sensitivity 209.6 pg/mL High 4.0-76.1 [facility] Comment on above: RESULTS CALLED TO PRECIOUS MURPHYRNCUT-OFF POINTS HAVE BEEN ESTABLISHED BASED ON THE FOURTHUNIVERSAL DEFINITION OF MYOCARDIAL INFARCTION. THE UPPERREFERENCE LIMIT (URL) OF TROPONIN, DEFINED THE 99THPERCENTILE OF cTnI DISTRIBUTION IN A REFERENCE POPULATION,HAS BEEN CONFIRMED THE DECISION THRESHOLD FOR MIDIAGNOSIS.99TH PERCENTILE = 76.2 PG/MLNOTE: HIGH-SENSITIVITY TROPONIN ASSAY IS NOT INTENDED TO BEUSED IN ISOLATION BUT SHOULD BE INTERPRETED IN CONJUNCTIONWITH OTHER DIAGNOSTIC AND CLINICAL INFORMATION. Platelet mean volume Auto (B ld) [Entitic vol]on 10-16-2023 Platelet mean volume (Bld) [Entitic vol] 9.5 fL 9.5-13.5 [facility] Platelets Auto (Bld) [#/Vol] on 10-16-2023 Platelets (Bld) [#/Vol] 240 10 3/uL 150-450 [facility] RBC Auto (Bld) [#/Vol]on RBC (Bld) [#/Vol] 3.35 10 6/uL Low 4.70-6.10 [facility] Segmented neutrophils/100 WB C Manual cnt (Bld)on 10-16-2023 Segmented neutrophils/100 WBC (Bld) 76.0 % High 43.0-75.0 [facility] Serum or plasma albumin/glob ulin mass ratioon 10-16-2023 Albumin/Globulin [Mass ratio] 0.8 {ratio} [facility] Serum or plasma anion gap de terminationon 10-16-2023 Anion gap [Moles/Vol] 6.8 mmol/L [facility] Basophils Auto (Bld) [#/Vol] on 10-15-2023 Basophils (Bld) [#/Vol] 0.0 10 3/uL 0.0-0.1 [facility] Basophils/100 WBC Auto (Bld) on 10-15-2023 Basophils/100 WBC (Bld) 0.0 % Low 0.2-2.0 [facility] Cholesterol in LDL Calc [Mas s/Vol]on 10-15-2023 Cholesterol in LDL [Mass/Vol] 39.0 mg/dL [facility] Comment on above: <100 mg/dl [id number] 0-129 mg/dl NEAR OR ABOVE [id number] mg/dl BORDERLINE PLSI843-118 mg/dl HIGH>190 mg/dl VERY HIGH Cholesterol in VLDL Calc [Ma ss/Vol]on 10-15-2023 Cholesterol in VLDL [Mass/Vol] 11.2 mg/dL [facility] Eosinophils/100 WBC Auto (Bl d)on 10-15-2023 Eosinophils/100 WBC (Bld) 0.0 % Low 0.9-7.0 [facility] Erythrocyte distribution wid th Auto (RBC) [Ratio]on 10-15-2023 Erythrocyte distribution width (RBC) [Ratio] 12.4 % 11.0-15.0 [facility] Estimated glomerular filtrat ion rate (GFR) non- Americanon 10-15-2023 GFR/1.73 sq M.predicted among non-blacks MDRD (S/P/Bld) [Vol rate/Area] mL/min/{1.73_m2} >=60 [facility] Globulin Calc (S) [Mass/Vol] on 10-15-2023 Globulin (S) [Mass/Vol] 3.5 g/dL [facility] Hematocrit Auto (Bld) [Volum e fraction]on 10-15-2023 Hematocrit (Bld) [Volume fraction] 28.8 % Low 42.0-54.0 [facility] Hemoglobin [Mass/volume] in Bloodon 10-15-2023 Hemoglobin (Bld) [Mass/Vol] 9.6 g/dL Low 14.0-18.0 [facility] Laboratory - Chemistry and C hemistry - challengeon 10-15-2023 Albumin [Mass/Vol] 2.9 g/dL Low 3.4-5.0 [facility] ALP [Catalytic activity/Vol] 100 U/L 46-116 [facility] ALT [Catalytic activity/Vol] 50 U/L 16-63 [facility] AST [Catalytic activity/Vol] 27 U/L 15-37 [facility] Bilirubin [Mass/Vol] 0.8 mg/dL 0.2-1.0 [facility] Calcium [Mass/Vol] 8.7 mg/dL 8.5-10.1 [facility] Chloride [Moles/Vol] 99 mmol/L 98-107 [facility] Cholesterol [Mass/Vol] 89 mg/dL <=200 [facility] Cholesterol in HDL [Mass/Vol] 39 mg/dL Low 40-60 [facility] Comment on above: > or =60 mg/dl - LOW CARDIOVASCULAR RISK<40 mg/dl - HIGH CARDIOVASCULAR RISK CO2 [Moles/Vol] 26.8 mmol/L 21.0-32.0 [facility] Creatinine [Mass/Vol] 0.83 mg/dL 0.70-1.30 [facility] GFR/1.73 sq M.predicted MDRD (S/P/Bld) [Vol rate/Area] mL/min/{1.73_m2} >=60 [facility] Glucose [Mass/Vol] 137 mg/dL High 74-106 [facility] Magnesium [Mass/Vol] 1.6 mg/dL Low 1.8-2.4 [facility] Potassium [Moles/Vol] 3.9 mmol/L 3.5-5.1 [facility] Protein [Mass/Vol] 6.4 g/dL 6.4-8.2 [facility] Sodium [Moles/Vol] 134 mmol/L Low 136-145 [facility] Triglyceride [Mass/Vol] 56 mg/dL <=150 [facility] TSH Qn 0.543 m[IU]/L 0.358-3.74 0 [facility] Urea nitrogen [Mass/Vol] 20.0 mg/dL High 7.0-18.0 [facility] Urea nitrogen/Creatinine [Mass ratio] 24.1 mg/mg [facility] Laboratory - Hematology and Cell countson 10-15-2023 Immature granulocytes/100 WBC (Bld) 0.4 % 0.0-0.5 [facility] Leukocytes [#/volume] correc shyann for nucleated erythrocytes in Blood by Automated counon 10-15-2023 WBC corrected for nucl RBC Auto (Bld) [#/Vol] 8.2 10 3/uL 4.0-11.0 [facility] Lymphocytes Auto (Bld) [#/Vo l]on 10-15-2023 Lymphocytes (Bld) [#/Vol] 0.8 10 3/uL Low 1.2-3.8 [facility] Lymphocytes/100 WBC Auto (Bl d)on 10-15-2023 Lymphocytes/100 WBC (Bld) 9.2 % Low 20.5-60.0 [facility] MCH Auto (RBC) [Entitic mass ]on 10-15-2023 MCH (RBC) [Entitic mass] 30.3 pg 25.9-34.0 [facility] MCHC Auto (RBC) [Mass/Vol]on 10-15-2023 MCHC (RBC) [Mass/Vol] 33.3 g/dL 29.9-35.2 [facility] MCV Auto (RBC) [Entitic vol] on 10-15-2023 MCV (RBC) [Entitic vol] 90.9 fL 80.0-94.0 [facility] Monocytes Auto (Bld) [#/Vol] on 10-15-2023 Monocytes (Bld) [#/Vol] 0.7 10 3/uL 0.3-0.8 [facility] Monocytes/100 WBC Auto (Bld) on 10-15-2023 Monocytes/100 WBC (Bld) 9.0 % 1.7-12.0 [facility] Neutrophils Auto (Bld) [#/Vo l]on 10-15-2023 Neutrophils (Bld) [#/Vol] 6.7 10 3/uL High 1.4-6.5 [facility] Neutrophils/100 WBC Auto (Bl d)on 10-15-2023 Neutrophils/100 WBC (Bld) 81.4 % High 43.0-75.0 [facility] No Panel Informationon 10-14 Troponin I High Sensitivity 214.0 pg/mL High 4.0-76.1 [facility] Comment on above: RESULTS CALLED TO Josue Elaine (RN)@BY Adalgisa Doherty,ELECTRICAL DEVELOPMENT ENGINEER at 2236CUT-OFF POINTS HAVE BEEN ESTABLISHED BASED ON THE FOURTHUNIVERSAL DEFINITION OF MYOCARDIAL INFARCTION. THE UPPERREFERENCE LIMIT (URL) OF TROPONIN, DEFINED THE 99THPERCENTILE OF cTnI DISTRIBUTION IN A REFERENCE POPULATION,HAS BEEN CONFIRMED THE DECISION THRESHOLD FOR MIDIAGNOSIS.99TH PERCENTILE = 76.2 PG/MLNOTE: HIGH-SENSITIVITY TROPONIN ASSAY IS NOT INTENDED TO BEUSED IN ISOLATION BUT SHOULD BE INTERPRETED IN CONJUNCTIONWITH OTHER DIAGNOSTIC AND CLINICAL INFORMATION. Eosinophils # (Auto) 0.0 10 3/uL 0.0-0.7 [facility] Immature Granulocyte # (Auto) 0.03 10 3/uL 0.00-0.03 [facility] Platelet mean volume Auto (B ld) [Entitic vol]on 10-15-2023 Platelet mean volume (Bld) [Entitic vol] 10.1 fL 9.5-13.5 [facility] Platelets Auto (Bld) [#/Vol] on 10-15-2023 Platelets (Bld) [#/Vol] 152 10 3/uL 150-450 [facility] RBC Auto (Bld) [#/Vol]on RBC (Bld) [#/Vol] 3.17 10 6/uL Low 4.70-6.10 [facility] Serum or plasma albumin/glob ulin mass ratioon 10-15-2023 Albumin/Globulin [Mass ratio] 0.8 {ratio} [facility] Serum or plasma anion gap de terminationon 10-15-2023 Anion gap [Moles/Vol] 12.1 mmol/L [facility] Serum or plasma total choles terol/high density lipoprotein (HDL) cholesterol mass lalo 10-15-2023 Cholesterol.total/Chol esterol in HDL [Mass ratio] 2.3 {ratio} [facility] Comment on above: 3.3 - 4.4 LOW RISK4. 4 - 7.1 AVERAGE RISK7.1 - 11.0 MODERATE RISK>11.0 HIGH RISK 36on 10-14-2023 36 Pt's called ashley huntley that pt has been having SOB since he was discharged from the hospital yesterday. She says that he's having trouble catching his breath. She states that it's no worse than it was yesterday, but it's just continuing. His BP is 161/77, pulse is 74, O2 sat is 95%, no fever. Yesterday he had swelling in both hands and both feet and was weak. He slept in his recliner with his feet propped up and today the swelling has resolved and he doesn't feel as weak. Per Dr. Bryant - see if pt can get in with his PCP today, if not then she would recommend that he go to the E.R. He may need to start on a water pill. Pt's was notified. She will call PCP to see if they can get an appt today and if not, then she will take him to the E.R. in [place]. 1:48 pm - pt's called back to let us know that she took pt to [place] E.R. and he was dx'd with atrial fibrillation. They also did a CT scan to check for PE but that was negative. She states that pt was extremely short of breath when they were getting him in the wheelchair at discharge and said he couldn't even complete a whole sentence - he could only say a couple of words at a time. Dr. Bryant was updated. Normal [facility] Activated partial thrombopla stin time (aPTT) in platelet poor plasma by coagulation aon 10-14-2023 aPTT Coag (PPP) [Time] 30.8 s 22.3-36.2 [facility] Basophils Auto (Bld) [#/Vol] on 10-14-2023 Basophils (Bld) [#/Vol] 0.0 10 3/uL 0.0-0.1 [facility] Basophils/100 WBC Auto (Bld) on 10-14-2023 Basophils/100 WBC (Bld) 0.1 % Low 0.2-2.0 [facility] Eosinophils/100 WBC Auto (Bl d)on 10-14-2023 Eosinophils/100 WBC (Bld) 0.1 % Low 0.9-7.0 [facility] Erythrocyte distribution wid th Auto (RBC) [Ratio]on 10-14-2023 Erythrocyte distribution width (RBC) [Ratio] 12.2 % 11.0-15.0 [facility] Estimated glomerular filtrat ion rate (GFR) non- Americanon 10-14-2023 GFR/1.73 sq M.predicted among non-blacks MDRD (S/P/Bld) [Vol rate/Area] mL/min/{1.73_m2} >=60 [facility] Hematocrit Auto (Bld) [Volum e fraction]on 10-14-2023 Hematocrit (Bld) [Volume fraction] 31.6 % Low 42.0-54.0 [facility] Hemoglobin [Mass/volume] in Bloodon 10-14-2023 Hemoglobin (Bld) [Mass/Vol] 10.6 g/dL Low 14.0-18.0 [facility] INR in Platelet poor plasma by Coagulation assayon 10-14-2023 INR Coag (PPP) [Relative time] 1.11 {INR} [facility] Comment on above: DESIRED INR:2.0-3.0 CONDITIONS NOT LISTED BELOW2.5-3.5 FOR PROSTHETIC HEART VALVE REPLACEMENT2.5-3.5 RECURRENT THROMBOSIS Laboratory - Chemistry and C hemistry - challengeon 10-14-2023 Natriuretic peptide B (Bld) [Mass/Vol] 9227.0 pg/mL High <=1800.0 [facility] Comment on above: RESULTS CALLED TO KENDELL LOMBARDI/SHAREE IN ICU Calcium [Mass/Vol] 8.6 mg/dL 8.5-10.1 [facility] Chloride [Moles/Vol] 95 mmol/L Low 98-107 [facility] CO2 [Moles/Vol] 24.6 mmol/L 21.0-32.0 [facility] Creatinine [Mass/Vol] 0.97 mg/dL 0.70-1.30 [facility] GFR/1.73 sq M.predicted MDRD (S/P/Bld) [Vol rate/Area] mL/min/{1.73_m2} >=60 [facility] Glucose [Mass/Vol] 176 mg/dL High 74-106 [facility] Potassium [Moles/Vol] 4.1 mmol/L 3.5-5.1 [facility] Sodium [Moles/Vol] 130 mmol/L Low 136-145 [facility] Urea nitrogen [Mass/Vol] 20.0 mg/dL High 7.0-18.0 [facility] Urea nitrogen/Creatinine [Mass ratio] 20.6 mg/mg [facility] Laboratory - Hematology and Cell countson 10-14-2023 Immature granulocytes/100 WBC (Bld) 0.4 % 0.0-0.5 [facility] Leukocytes [#/volume] correc shyann for nucleated erythrocytes in Blood by Automated counon 10-14-2023 WBC corrected for nucl RBC Auto (Bld) [#/Vol] 15.7 10 3/uL High 4.0-11.0 [facility] Lymphocytes Auto (Bld) [#/Vo l]on 10-14-2023 Lymphocytes (Bld) [#/Vol] 1.4 10 3/uL 1.2-3.8 [facility] Lymphocytes/100 WBC Auto (Bl d)on 10-14-2023 Lymphocytes/100 WBC (Bld) 9.1 % Low 20.5-60.0 [facility] MCH Auto (RBC) [Entitic mass ]on 10-14-2023 MCH (RBC) [Entitic mass] 30.8 pg 25.9-34.0 [facility] MCHC Auto (RBC) [Mass/Vol]on 10-14-2023 MCHC (RBC) [Mass/Vol] 33.5 g/dL 29.9-35.2 [facility] MCV Auto (RBC) [Entitic vol] on 10-14-2023 MCV (RBC) [Entitic vol] 91.9 fL 80.0-94.0 [facility] Monocytes Auto (Bld) [#/Vol] on 10-14-2023 Monocytes (Bld) [#/Vol] 1.5 10 3/uL High 0.3-0.8 [facility] Monocytes/100 WBC Auto (Bld) on 10-14-2023 Monocytes/100 WBC (Bld) 9.6 % 1.7-12.0 [facility] Neutrophils Auto (Bld) [#/Vo l]on 10-14-2023 Neutrophils (Bld) [#/Vol] 12.7 10 3/uL High 1.4-6.5 [facility] Neutrophils/100 WBC Auto (Bl d)on 10-14-2023 Neutrophils/100 WBC (Bld) 80.7 % High 43.0-75.0 [facility] No Panel Informationon 10-13 Troponin I High Sensitivity 279.3 pg/mL High 4.0-76.1 [facility] Comment on above: RESULTS CALLED TO KENDELL LOMBARDI/SHAREE IN ICUCUT-OFF POINTS HAVE BEEN ESTABLISHED BASED ON THE FOURTHIVERS DEFINITION OF MYOCARDIAL INFARCTION. THE UPPERREFERENCE LIMIT (URL) OF TROPONIN, DEFINED THE 99THPERCENTILE OF cTnI DISTRIBUTION IN A REFERENCE POPULATION,HAS BEEN CONFIRMED THE DECISION THRESHOLD FOR MIDIAGNOSIS.99TH PERCENTILE = 76.2 PG/MLNOTE: HIGH-SENSITIVITY TROPONIN ASSAY IS NOT INTENDED TO BEUSED IN ISOLATION BUT SHOULD BE INTERPRETED IN CONJUNCTIONWITH OTHER DIAGNOSTIC AND CLINICAL INFORMATION. Eosinophils # (Auto) 0.0 10 3/uL 0.0-0.7 [facility] Immature Granulocyte # (Auto) 0.07 10 3/uL High 0.00-0.03 [facility] Platelet mean volume Auto (B ld) [Entitic vol]on 10-14-2023 Platelet mean volume (Bld) [Entitic vol] 10.1 fL 9.5-13.5 [facility] Platelets Auto (Bld) [#/Vol] on 10-14-2023 Platelets (Bld) [#/Vol] 191 10 3/uL 150-450 [facility] Prothrombin time (PT)on PT Coag (PPP) [Time] 11.6 s 9.0-11.6 [facility] RBC Auto (Bld) [#/Vol]on RBC (Bld) [#/Vol] 3.44 10 6/uL Low 4.70-6.10 [facility] Serum or plasma anion gap de terminationon 10-14-2023 Anion gap [Moles/Vol] 14.5 mmol/L [facility] Telephoneon 10-14-[phone] 1940 M Date Provider Department Center 10/14/2023 NICOLE PEOPLES ONC DCC Family History Problem Relation Age of Onset Heart disease Mother No Known Problems Father No Known Problems Sister Family Status - Relation Status Age at Mother Father Sister Alive Reason for Visit and Comments: Shortness of Breath [[id number]] Normal [facility] 30on 10-13-2023 30 Problem: Neurosensor y - [...] heavy lifting and knowing s/s for infection. Normal [facility] 30 Daily Case Managemen t Update Multidisciplinary [...] and apple sauce, please. Thank you! 10/13/23 [id number] Special Kitchen Request Once Comments: Please send patient a clear liquid tray. 10/12/231847 Physician Expected Discharge Date: 10/15/2023 Discharge Delays: PT Six Click Score: 14 OT Six Click Score: PT Recommendations: OT Recommendations: New Consults: Normal [facility] CBCon 10-13-2023 Erythrocyte distribution width (RBC) [Ratio] 12.6 % Normal 11.5-15.0 [facility] Comment on above: Performed By: #### L [id number] #### [facility] ([facility]) [address] [address] ERYTHROCYTE MEAN CORPUSCULAR HEMOGLOBIN CONCENTRATION (G/DL) BY AUTOMATED 33.0 g/dL Normal 32.0-35.0 [facility] Comment on above: Performed By: #### L [id number] #### [facility] ([facility]) [address] [place] [address] Hematocrit (Bld) [Volume fraction] 29.4 % Low 39.0-55.0 [facility] Comment on above: Performed By: #### L [id number] #### [facility] ([facility]) [address] [place] [address] Hemoglobin (Bld) [Mass/Vol] 9.7 g/dL Low 13.0-17.0 [facility] Comment on above: Performed By: #### L [id number] #### [facility] [facility] ([facility]) [address] [place] [address] MCH (RBC) [Entitic mass] 30.9 pg Normal 27.0-33.0 [facility] Comment on above: Performed By: #### L [id number] #### [facility] ([facility]) [address] [place] [address] MCV (RBC) [Entitic vol] 93.6 fL Normal 82.0-98.0 [facility] Comment on above: Performed By: #### L [id number] #### [facility] ([facility]) [address] [place] [address] PLATELETS (10*3/UL) IN BLOOD AUTOMATED COUNT 141 10*3/uL Low 150-400 [facility] Comment on above: Performed By: #### L [id number] #### [facility] ([facility]) [address] [place] [address] RBC (Bld) [#/Vol] 3.14 10*6/uL Low 4.20-5.70 [facility] Comment on above: Performed By: #### L [id number] #### [facility] ([facility]) [address] [place] [address] WBC (Bld) [#/Vol] 14.01 10*3/uL High 4.00-10.60 [facility] Comment on above: Performed By: #### L [id number] #### [facility] ([facility]) [address] [place] [address] COMPREHENSIVE METABOLIC PANE Santo 10-13-2023 Albumin [Mass/Vol] 3.4 g/dL Low 3.5-5.7 [facility] Comment on above: Performed By: #### L [id number] ####[facility] ([facility])[address] [place] [address] ALP [Catalytic activity/Vol] 89 U/L Normal 34-104 [facility] Comment on above: Performed By: #### L [id number] ####[facility] ([facility])[address] [place] [address] ALT [Catalytic activity/Vol] 52 U/L Normal 7-52 [facility] Comment on above: Performed By: #### L [id number] ####[facility] ([facility])[address] [place] [address] Anion gap [Moles/Vol] 12 mmol/L Normal 7-20 [facility] Comment on above: Performed By: #### L [id number] ####[facility] ([facility])[address] [place] [address] AST [Catalytic activity/Vol] 60 U/L High 13-39 [facility] Comment on above: Performed By: #### L [id number] ####[facility] ([facility])[address] [place] [address] Bilirubin [Mass/Vol] 0.8 mg/dL Normal 0.3-1.0 [facility] Comment on above: Performed By: #### L [id number] ####[facility] ([facility]ER)[address] [place] [address] Calcium [Mass/Vol] 8.3 mg/dL Low 8.6-10.3 [facility] Comment on above: Performed By: #### L [id number] ####[facility] (BE[facility]ER)[address] [place] [address] Chloride [Moles/Vol] 104 mmol/L Normal 98-107 [facility] Comment on above: Performed By: #### L [id number] ####[facility] (BEAKER)[address] [place] [address] CO2 [Moles/Vol] 22 mmol/L Normal 21-31 [facility] Comment on above: Performed By: #### L [id number] ####[facility] ([facility])[address] [place] [address] Creatinine [Mass/Vol] 0.74 mg/dL Normal 0.70-1.30 [facility] Comment on above: Performed By: #### L [id number] ####[facility] ([facility])[address] [place] [address] GLOMERULAR FILTRATION RATE ML/MIN/1.73 SQ M.PREDICTED 91.0 mL/min/1.73m*2 Normal >60.0 [facility] Comment on above: Result Comment: The [facility]???s estimated glomerular filtration rate (eGFR) will no [...] of individuals. Performed By: #### L [id number] ####[facility] ([facility])[address] [place] [address] Glucose [Mass/Vol] 116 mg/dL High 70-100 [facility] Comment on above: Performed By: #### L [id number] ####[facility] ([facility])[address] [place] [address] Potassium [Moles/Vol] 4.4 mmol/L Normal 3.5-5.1 [facility] Comment on above: Performed By: #### L [id number] ####[facility] ([facility])[address] [place] [address] Protein [Mass/Vol] 5.9 g/dL Low 6.0-8.3 [facility] Comment on above: Performed By: #### L [id number] ####[facility] ([facility])[address] [place] [address] Sodium [Moles/Vol] 134 mmol/L Low 136-145 [facility] Comment on above: Performed By: #### L [id number] ####[facility] ([facility])[address] [place] [address] Urea nitrogen [Mass/Vol] 17 mg/dL Normal 7-25 [facility] Comment on above: Performed By: #### L [id number] ####[facility] ([facility])[address] [place] [address] UREA NITROGEN/CREATININE (MASS RATIO) IN SER/PLAS 23.0 Normal [facility] Comment on above: Performed By: #### L [id number] ####[facility] ([facility])[address] [place] [address] DSon 10-13-2023 DS Admission Admitted 10/12/2023 for [...] were sent to [facility]/pharmacy #[id number] [place] [address] acetaminophen 500 mg tablet aspirin 81 mg [...] is performed under the ED CLIA certificate #[id number]. ARTERIAL BLOOD GAS WITH CO-OXIMETRY - Abnormal [...] HCO3 POC (more content not included)... Normal [facility] MAGNESIUMon 10-13-2023 Magnesium [Mass/Vol] 1.5 mg/dL Low 1.9-2.7 [facility] Comment on above: Performed By: #### L [id number] ####[facility] (BEAKER)[address] [place] [address] PHOSPHORUSon 10-13-2023 Magnesium [Mass/Vol] 4.2 mg/dL Normal 2.5-5.0 [facility] Comment on above: Performed By: #### L [id number] #### [facility] (BEAKER) [address] [place] [address] PROTIME-INRon 10-13-2023 INR IN PPP BY COAGULATION ASSAY 1.17 High 0.90-1.10 [facility] Comment on above: Result Comment: ACCC P [...] 1995;[id number]. Performed By: #### L [id number] #### [facility] ([facility]) [address] [place] [address] PROTHROMBIN TIME (PT) IN PPP BY COAGULATION ASSAY 14.8 Seconds Normal 12.3-14.8 [facility] Comment on above: Performed By: #### L [id number] #### [facility] ([facility]) [address] [place] [address] 30on 10-12-2023 30 The patient is Moder [...] these barriers include post-op monitoring . Normal [facility] 30 Daily Case Managemen t Update Multidisciplinary [...] appropriate for patient?: Yes New Consults: Normal [facility] APTTon 10-12-2023 ACTIVATED PARTIAL THROMBOPLASTIN TIME IN PPP BY COAGULATION ASSAY 32.1 Seconds Normal 25.0-35.0 [facility] Comment on above: 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: In PA CU Result Comment: Clin ical significance of the APTT is questionable in the presence of heparin. Performed By: #### L [id number] #### [facility] ([facility]) [address] [place] [address] ARTERIAL BLOOD GAS WITH CO-O XIMETRYon 10-12-2023 Base excess Calc (Bld) [Moles/Vol] -4.3000 mmol/L Low -2.0-3.0 [facility] Comment on above: 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: In PA CU Performed By: #### L [id number] #### [facility] [address] [place] [address] [place] CARBOXYHEMOGLOBIN/HEMO GLOBIN TOTAL % IN BLOOD 1.2 % Normal 0.0-3.0 [facility] Comment on above: 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: In PA CU Performed By: #### L [id number] #### [facility] [address] [place] [address] [place] CO2 (Bld) [Partial pressure] 42 mm[Hg] Normal 35-48 [facility] Comment on above: 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: In PA CU Performed By: #### L [id number] #### [facility] [address] [place] [address] [place] DEOXYGENATED HEMOGLOBIN IN BLOOD 0.3 % Low 1-5 [facility] Comment on above: 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: In PA CU Performed By: #### L [id number] #### [facility] [address] [facility] [place] [place] [address] [place] HCO3 (Bld) [Moles/Vol] 21.6 mmol/L Normal 21.0-28.0 [facility] Comment on above: 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: In PA CU Performed By: #### L [id number] #### [facility] [address] [place] [address] [place] Hemoglobin (Bld) [Mass/Vol] 9.5 g/dL Low 11.7-17.4 [facility] Comment on above: 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: In PA CU Performed By: #### L [id number] #### [facility] [address] [place] [address] [place] LPM 4 Normal [facility] Comment on above: 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: In PA CU Performed By: #### L [id number] #### [facility] [address] [place] [address] [place] METHEMOGLOBIN/100 IN BLOOD 0.0 % Normal 0.0-1.5 [facility] Comment on above: 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: In PA CU Performed By: #### L [id number] #### [facility] [address] [place] [address] [place] Oxygen (Bld) [Partial pressure] 137 mm[Hg] High 83-100 [facility] Comment on above: 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: In PA CU Performed By: #### L [id number] #### [facility] [address] [place] [address] [place] OXYGEN SATURATION (%) IN ARTERIAL BLOOD 99.7 % High 94.0-98.0 [facility] Comment on above: 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: In PA CU Performed By: #### L [id number] #### [facility] [address] [place] [address] [facility] OXYGENATED HEMOGLOBIN IN BLOOD 98.4 % High 90.0-95.0 [facility] Comment on above: 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: In PA CU Performed By: #### L [id number] #### [facility] [address] [place] [address] [place] pH (Bld) 7.32 [pH] Low 7.35-7.45 [facility] Comment on above: 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: In PA CU Performed By: #### L [id number] #### [facility] [address] [place] [address] [place] SOURCE OF OXYGEN Nasal cannula Normal [facility] Comment on above: 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: In PA CU Performed By: #### L [id number] #### [facility] [address] [place] [address] [place] CBCon 10-12-2023 Erythrocyte distribution width (RBC) [Ratio] 12.5 % Normal 11.5-15.0 [facility] Comment on above: 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: In PA CU Performed By: #### L [id number] #### [facility] ([facility]ER) [address] [place] [address] ERYTHROCYTE MEAN CORPUSCULAR HEMOGLOBIN CONCENTRATION (G/DL) BY AUTOMATED 32.4 g/dL Normal 32.0-35.0 [facility] Comment on above: 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: In PA CU Performed By: #### L [id number] #### [facility] ([facility]) [address] [place] [address] Hematocrit (Bld) [Volume fraction] 28.4 % Low 39.0-55.0 [facility] Comment on above: 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: In PA CU Performed By: #### L [id number] #### [facility] ([facility]) [address] [place] [address] Hemoglobin (Bld) [Mass/Vol] 9.2 g/dL Low 13.0-17.0 [facility] Comment on above: 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: In PA CU Performed By: #### L [id number] #### [facility] ([facility]) [address] [place] [address] MCH (RBC) [Entitic mass] 30.6 pg Normal 27.0-33.0 [facility] Comment on above: 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: In PA CU Performed By: #### L [id number] #### [facility] ([facility]) [address] [place] [address] MCV (RBC) [Entitic vol] 94.4 fL Normal 82.0-98.0 [facility] Comment on above: 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: In PA CU Performed By: #### L [id number] #### [facility] ([facility]) [address] [place] [address] PLATELETS (10*3/UL) IN BLOOD AUTOMATED COUNT 130 10*3/uL Low 150-400 [facility] Comment on above: 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: In PA CU Performed By: #### L [id number] #### [facility] ([facility]) [address] [place] [address] RBC (Bld) [#/Vol] 3.01 10*6/uL Low 4.20-5.70 [facility] Comment on above: 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: In PA CU Performed By: #### L [id number] #### [facility] ([facility]) [address] [place] [address] WBC (Bld) [#/Vol] 10.46 10*3/uL Normal 4.00-10.60 [facility] Comment on above: 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: In PA CU Performed By: #### L [id number] #### [facility] ([facility]) [address] [place] [address] COMPREHENSIVE METABOLIC PANE Santo 10-12-2023 Albumin [Mass/Vol] 3.3 g/dL Low 3.5-5.7 [facility] Comment on above: 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: In PA CU Performed By: #### L [id number] ####[facility] ([facility])[address] [place] [address] ALP [Catalytic activity/Vol] 84 U/L Normal 34-104 [facility] Comment on above: Order Comment: In PA CU Performed By: #### L [id number] ####[facility] ([facility])[address] [place] [address] ALT [Catalytic activity/Vol] 53 U/L High 7-52 [facility] Comment on above: Order Comment: In PA CU Performed By: #### L [id number] ####[facility] ([facility])[address] [place] [address] Anion gap [Moles/Vol] 11 mmol/L Normal 7-20 [facility] Comment on above: Order Comment: In PA CU Performed By: #### L [id number] ####[facility] ([facility])[address] [place] [address] AST [Catalytic activity/Vol] 63 U/L High 13-39 [facility] Comment on above: Order Comment: In PA CU Performed By: #### L [id number] ####[facility] ([facility])[address] [place] [address] Bilirubin [Mass/Vol] 0.9 mg/dL Normal 0.3-1.0 [facility] Comment on above: Order Comment: In PA CU Performed By: #### L [id number] ####[facility] (BEAKER)[address] [place] [address] Calcium [Mass/Vol] 7.9 mg/dL Low 8.6-10.3 [facility] Comment on above: Order Comment: In PA CU Performed By: #### L [id number] ####[facility] (BEAKER)[address] [place] [address] Chloride [Moles/Vol] 107 mmol/L Normal 98-107 [facility] Comment on above: Order Comment: In PA CU Performed By: #### L [id number] ####[facility] ([facility])[address] [place] [address] CO2 [Moles/Vol] 22 mmol/L Normal 21-31 [facility] Comment on above: Order Comment: In PA CU Performed By: #### L [id number] ####[facility] ([facility])[address] [place] [address] Creatinine [Mass/Vol] 0.73 mg/dL Normal 0.70-1.30 [facility] Comment on above: Order Comment: In PA CU Performed By: #### L [id number] ####[facility] ([facility])[address] [place] [address] GLOMERULAR FILTRATION RATE ML/MIN/1.73 SQ M.PREDICTED 91.4 mL/min/1.73m*2 Normal >60.0 [facility] Comment on above: Order Comment: In PA CU Result Comment: The [facility]???s estimated glomerular filtration rate (eGFR) will no [...] of individuals. Performed By: #### L [id number] ####[facility] (BEAKER)[address] [place] [address] Glucose [Mass/Vol] 160 mg/dL High 70-100 [facility] Comment on above: Order Comment: In PA CU Performed By: #### L [id number] ####[facility] ([facility])[address] [place] [address] Potassium [Moles/Vol] 4.4 mmol/L Normal 3.5-5.1 [facility] Comment on above: Order Comment: In PA CU Performed By: #### L [id number] ####[facility] ([facility])[address] [place] [address] Protein [Mass/Vol] 5.7 g/dL Low 6.0-8.3 [facility] Comment on above: Order Comment: In PA CU Performed By: #### L [id number] ####[facility] ([facility])[address] [place] [address] Sodium [Moles/Vol] 136 mmol/L Normal 136-145 [facility] Comment on above: Order Comment: In PA CU Performed By: #### L [id number] ####[facility] ([facility])[address] [place] [address] Urea nitrogen [Mass/Vol] 18 mg/dL Normal 7-25 [facility] Comment on above: Order Comment: In PA CU Performed By: #### L [id number] ####[facility] ([facility])[address] [place] [address] UREA NITROGEN/CREATININE (MASS RATIO) IN SER/PLAS 24.7 Normal [facility] Comment on above: Order Comment: In PA CU Performed By: #### L [id number] ####[facility] ([facility])[address] [place] [address] HISTOLOGY - TISSUE EXAMon LAB AP CASE REPORT Normal [facility] Comment on above: Order Comment: 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] Result Comment: Surg ical Pathology Case: [id number] Authorizing Provider: Amber Bryant MD Collected: 10/12/2023 1204 Ordering Location: [facility] Main Operating Room Received: 10/12/2023 1233 Pathologist: Marya Hudson MD Intraop: Luana Rivas MD Specimens: A) - Common Bile Duct, CYSTIC DUCT MARGIN B) - Gallbladder, GALLBLADDER AND PORTION OF SEGMENT 4/5 Performed By: #### L [id number] ####[facility] (BEAKER)[address] [place] [address] LAB AP CLINICAL INFORMATION Normal [facility] Comment on above: Order Comment: 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 C ommon Bile Duct. Received fresh for frozen labeled [place] Baker cystic duct margin is a 0.6 x 0.3 x 0.2 cm piece of red soft tissue. The specimen is submitted for frozen section and examined intraoperatively for malignancy. The specimen is submitted entirely in 1 cassette. Quiana Newberry M.D., PGY-1 B. Gallbladder. Received fresh for frozen section labeled [place] Baker designated gallbladder and portion of segment 4/5 is a 8 x 5 x 1.5 cm gallbladder, previously opened by the surgeon, with attached roughened liver measuring 7 x 3 x 1.5 cm. There is a bulging, firm defect on the serosal surface measuring 2.5 x 1.9 x 0.8 cm, that is 0.4 cm from the hepatic resection margin and 5 cm from the cystic duct margin. There are palpable, freely moving stone-like structures in the defect, and an opening on the serosal side leaking black fluid and small stone-like structures. The hepatic resection margin is identified by the surgeon and inked blue. The bulging defect is inked black on the serosal side. The bulging defect is opened to reveal green-black fluid and many black, friable choleliths, the largest measuring 1 x 0.9 x 0.5 cm. A section from the center of the defect is submitted for frozen section and examined intraoperatively for malignancy; the remainder of the frozen tissue is submitted in B1. The gallbladder is opened along the previous incision by the surgeon. The mucosal surface is galicia-pink and velvety. The cut surface of the defect reveals a galicia, wrinkled cystic cavity containing 3-4 black choleliths. Outbound Call Center Representative sections are submitted as follows: B2: Soft tissue around cystic duct margin B3-5: Entire cystic defect with attached liver B6: Outbound Call Center Representative section from grossly unremarkable gallbladder neck B7: Outbound Call Center Representative sections from grossly unremarkablegallbladder body and fundus Quiana Newberry M.D., PGY-1 Performed By: #### L [id number] ####[facility] ([facility])[address] [place] [address] LAB AP INTRAOPERATIVE CONSULTATION [facility] Comment on above: Order Comment: Pre-o [...] Luana Rivas MD Performed By: #### L [id number] ####[facility] ([facility])[address] [place] [address] LAB AP MICROSCOPIC DESCRIPTION Microscopic examination performed. 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 C ystic duct margin, resection: - Segment of cystic duct with denuded surface epithelium. - Negative for carcinoma. B. Gallbladder, cholecystectomy: - Chronic cholecystitis with cholelithiasis. - Focal cystic dilatation of gallbladder and possible sinus tract/fistula, seen grossly. - Negative for carcinoma. Performed By: #### L [id number] ####[facility] (BEAKER)[address] [place] [address] HPon 10-12-2023 HP H&P reviewed. The pa tient was examined and there are no changes to the H&P. 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] Post-op Diagnosis * 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] Procedures Robot-Assisted Cholecystectomy with 7[address]89 - [place] LAPAROSCOPY SURG CHOLECYSTECTOMY Intraoperative Ultrasound and 96970 - [place] UNLISTED LAPAROSCOPIC PROCEDURE LIVER PArtial Liver Resection of segement 06/10 94823 - [place] UNLISTED LAPAROSCOPIC PROCEDURE LIVER Surgeons Primary: Amber [...] Amber Bryant MD 10/12/23 1204 Yes STAT [id number] Description: CYSTIC DUCT MARGIN B Gallbladder Tissue HISTOLOGY - TISSUE EXAM Amber Bryant MD 10/12/23 1403 Yes STAT [id number] Staff: Trial Attorney: Woody Massey, RN; Lukas Chacon, RN; Felicity Judeg, RN Relief Scrub: Rachel Martinez CST Scrub Person: Faby Garcia, LAUREN; Rachel Martinez BANDER AND CELLOPHANER MACHINE Indications: Chico Baker is an 83 y.o. [...] in the left lower quadrant as an child care assistant port. Following this the 5 mm [...] The ultrasound was brought in through the child care assistant port. Intraoperative ultrasonography of the gallbladder was undertaken examining the entire gallbladder in both its longitudinal and transverse (more content not included)... Normal [facility] PHOSPHORUSon 10-12-2023 Magnesium [Mass/Vol] 3.5 mg/dL Normal 2.5-5.0 [facility] Comment on above: Order Comment: In PA CU Performed By: #### L [id number] #### [facility] ([facility]) [address] [place] [address] POCT GLUCOSE METER UNSOLICIT ED RESULTSon 10-12-2023 Glucose [Mass/Vol] 115 mg/dL High 70-105 [facility] Comment on above: Order Comment: Waive d Testing in the ED is performed under the ED CLIA certificate #[id number]. Result Comment: spin zon Performed By: #### L [id number] ####[facility] ([facility])[address] [place] [address] POCT PERFUSION PANEL UNSOLIC ITED RESULTSon 10-12-2023 CO2 [Moles/Vol] 21.0 mmol/L Normal 21.0-29.0 [facility] Comment on above: Performed By: #### L [id number] ####[facility] (BEAKER)[address] [place] [address] Glucose [Mass/Vol] 132 mg/dL High 70-105 [facility] Comment on above: Performed By: #### L [id number] ####[facility] (BEAKER)[address] [place] [address] HCO3 (Bld) [Moles/Vol] 19.3 mmol/L Low 23.0-28.0 [facility] Comment on above: Performed By: #### L [id number] ####[facility] (BEAKER)[address] [place] [address] Hematocrit (Bld) [Volume fraction] 24 % Low 38-51 [facility] Comment on above: Performed By: #### L [id number] ####[facility] (BEAKER)[address] [place] [address] Hemoglobin (Bld) [Mass/Vol] 8.2 g/dL Low 12.0-17.0 [facility] Comment on above: Performed By: #### L [id number] ####[facility] (BEAKER)[address] [place] [address] POCT BASE EXCESS -7.0 mmol/L Low -2.0-3.0 [facility] Comment on above: Performed By: #### L [id number] ####[facility] (BEAKER)[address] [place] [address] POCT IONIZED CALCIUM 1.11 mmol/L Low 1.12-1.32 [facility] Comment on above: Performed By: #### L [id number] ####[facility] (BEAKER)[address] [place] [address] POCT PCO2 43.3 mmHg Normal 41.0-51.0 [facility] Comment on above: Performed By: #### L [id number] ####[facility] (BEAKER)[address] [place] [address] POCT PH 7.26 Low 7.31-7.41 [facility] Comment on above: Performed By: #### L [id number] ####[facility] (BEAKER)[address] [place] [address] POCT PO2 224 mmHg High 80-105 [facility] Comment on above: Performed By: #### L [id number] ####[facility] (BEAKER)[address] [place] [address] POCT SO2 100 % High 95-98 [facility] Comment on above: Performed By: #### L [id number] ####[facility] (BEAKER)[address] [place] [address] Potassium [Moles/Vol] 4.0 mmol/L Normal 3.5-4.9 [facility] Comment on above: Performed By: #### L [id number] ####[facility] (BEAKER)[address] [place] [address] Sodium [Moles/Vol] 140 mmol/L Normal 138.0-146 . 0 [facility] Comment on above: Performed By: #### L [id number] ####[facility] (BEAKER)[address] [place] [address] CO2 [Moles/Vol] 21.0 mmol/L Normal 21.0-29.0 [facility] Comment on above: Performed By: #### L [id number] ####[facility] (BEAKER)[address] [place] [address] Glucose [Mass/Vol] 146 mg/dL High 70-105 [facility] Comment on above: Performed By: #### L [id number] ####[facility] (BEAKER)[address] [place] [address] HCO3 (Bld) [Moles/Vol] 19.6 mmol/L Low 23.0-28.0 [facility] Comment on above: Performed By: #### L [id number] ####[facility] (BEAKER)[address] [place] [address] Hematocrit (Bld) [Volume fraction] 29 % Low 38-51 [facility] Comment on above: Performed By: #### L [id number] ####[facility] ([facility] [place] [address] Hemoglobin (Bld) [Mass/Vol] 9.9 g/dL Low 12.0-17.0 [facility] Comment on above: Performed By: #### L [id number] ####[facility] ([facility])[address] [place] [address] POCT BASE EXCESS -5.0 mmol/L Low -2.0-3.0 [facility] Comment on above: Performed By: #### L [id number] ####[facility] ([facility])[address] [place] [address] POCT IONIZED CALCIUM 1.12 mmol/L Normal 1.12-1.32 [facility] Comment on above: Performed By: #### L [id number] ####[facility] ([facility])[address] [place] [address] POCT PCO2 33.9 mmHg Low 41.0-51.0 [facility] Comment on above: Performed By: #### L [id number] ####[facility] ([facility])[address] [place] [address] POCT PH 7.37 Normal 7.31-7.41 [facility] Comment on above: Performed By: #### L [id number] ####[facility] ([facility])[address] [place] [address] POCT PO2 230 mmHg High 80-105 [facility] Comment on above: Performed By: #### L [id number] ####[facility] ([facility])[address] [place] [address] POCT SO2 100 % High 95-98 [facility] Comment on above: Performed By: #### L [id number] ####[facility] ([facility])[address] [place] [address] Potassium [Moles/Vol] 4.2 mmol/L Normal 3.5-4.9 [facility] Comment on above: Performed By: #### L [id number] ####[facility] (BEAKER)[address] [place] [address] Sodium [Moles/Vol] 136 mmol/L Low 138.0-146 . 0 [facility] Comment on above: Performed By: #### L [id number] ####[facility] (BEAKER)[address] [place] [address] CO2 [Moles/Vol] 25.0 mmol/L Normal 21.0-29.0 [facility] Comment on above: Performed By: #### L [id number] ####[facility] (BEAKER)[address] [place] [address] Glucose [Mass/Vol] 162 mg/dL High 70-105 [facility] Comment on above: Performed By: #### L [id number] ####[facility] (BEAKER)[address] [place] [address] HCO3 (Bld) [Moles/Vol] 23.4 mmol/L Normal 23.0-28.0 [facility] Comment on above: Performed By: #### L [id number] ####[facility] (BEAKER)[address] [place] [address] Hematocrit (Bld) [Volume fraction] 32 % Low 38-51 [facility] Comment on above: Performed By: #### L [id number] ####[facility] (BEAKER)[address] [place] [address] Hemoglobin (Bld) [Mass/Vol] 10.9 g/dL Low 12.0-17.0 [facility] Comment on above: Performed By: #### L [id number] ####[facility] (BEAKER)[address] [place] [address] POCT BASE EXCESS -2.0 mmol/L Normal -2.0-3.0 [facility] Comment on above: Performed By: #### L [id number] ####[facility] (BEAKER)[address] [place] [address] POCT IONIZED CALCIUM 1.20 mmol/L Normal 1.12-1.32 [facility] Comment on above: Performed By: #### L [id number] ####[facility] ([facility])[address] [place] [address] POCT PCO2 43.6 mmHg Normal 41.0-51.0 [facility] Comment on above: Performed By: #### L [id number] ####[facility] ([facility])[address] [place] [address] POCT PH 7.34 Normal 7.31-7.41 [facility] Comment on above: Performed By: #### L [id number] ####[facility] ([facility])[address] [place] [address] POCT PO2 225 mmHg High 80-105 [facility] Comment on above: Performed By: #### L [id number] ####[facility] ([facility])[address] [place] [address] POCT SO2 100 % High 95-98 [facility] Comment on above: Performed By: #### L [id number] ####[facility] ([facility])[address] [place] [address] Potassium [Moles/Vol] 4.4 mmol/L Normal 3.5-4.9 [facility] Comment on above: Performed By: #### L [id number] ####[facility] ([facility])[address] [place] [address] Sodium [Moles/Vol] 133 mmol/L Low 138.0-146 . 0 [facility] Comment on above: Performed By: #### L [id number] ####[facility] ([facility])[address] [place] [address] PROTIME-INRon 10-12-2023 INR IN PPP BY COAGULATION ASSAY 1.19 High 0.90-1.10 [facility] Comment on above: Order Comment: In PA [...] CHEST 1995;108:231S-246S. Performed By: #### L [id number] ####[facility] (BEAKER)[address] [place] [address] PROTHROMBIN TIME (PT) IN PPP BY COAGULATION ASSAY 15.0 Seconds High 12.3-14.8 [facility] Comment on above: Order Comment: In PA CU Performed By: #### L [id number] ####[facility] (BEAKER)[address] [place] [address] HPon 10-06-2023 SURGERY FOLLOWUP NOT E Amber Bryant MD, PE, FACS, FSSO Hepatobiliary, pancreatic, biliary surgery Surgical [...] ???F), temperature so (more content not included)... Normal [facility] Office Visiton 10-06-2023 Follow-up visit [id number] [address] 1940 M Date Provider Department Center 10/06/2023 [id number] BRYANT DCC ONC DCC Family History Problem Relation Age of Onset Heart disease Mother No Known Problems Father No Known Problems Sister Family Status - Relation Status Age at Mother Father Sister Alive Level of Service:69454 [place] OFFICE/OUTPATIENT ESTABLISHED LOW MDM 20 MIN Reason for Visit and Comments: Follow-up [[id number]] - Here for F/U of his gallbladder mass. Normal [facility] ANTI C3 DATon 09-17-2023 ANTI C3 ASHLEY Negative Normal [facility] Comment on above: Order Comment: 2 uni ts Performed By: #### L [id number] ####[facility], ANTI IGG DATon 09-17-2023 ANTI IGG ASHLEY Negative Normal [facility] Comment on above: Order Comment: 2 uni ts Performed By: #### L [id number] #### [facility] (BEAKER) [address] [place] [address] ANTIBODY IDENTIFICATIONon ANTIBODY IDENTIFICATION [facility] Normal [facility] Comment on above: Order Comment: 2 uni ts Performed By: #### L [id number] ####[facility], Labon 09-17-[id number] 1940 M Date Provider Department Center 09/17/2023 [id number] RESOURCE DCC DRAW [facility] Family History Problem Relation Age of Onset Heart disease Mother No Known Problems Father No Known Problems Sister Family Status - Relation Status Age at Mother Father Sister Alive Normal [facility] TYPE AND SCREENon 09-17-2023 AB SCREEN Positive Normal [facility] Comment on above: Order Comment: 2 uni ts Performed By: #### L [id number] #### [facility] (BEAKER) [address] [place] [address] ABO group Nom (Bld) A Normal [facility] Comment on above: Order Comment: 2 uni ts Performed By: #### L [id number] #### [facility] (BEAKER) [address] [place] [address] RH TYPE IN BLOOD Positive Normal [facility] Comment on above: Order Comment: 2 uni ts Performed By: #### L [id number] #### [facility] (BEAKER) [address] [place] [address] Abstracton 09-14-[id number] 1940 M Date Provider Department Center 09/14/2023 [id number] BRYANT [facility] ONC [facility] Family History Problem Relation Age of Onset Heart disease Mother No Known Problems Father No Known Problems Sister Family Status - Relation Status Age at Mother Father Sister Alive Normal [facility] Abstracton 09-13-2023 Abstract [id number] 1940 M Date Provider Department [place] 09/13/2023 [id number] BRYANT [facility] ONC [facility] Family History Problem Relation Age of Onset Heart disease Mother No Known Problems Father No Known Problems Sister Family Status - Relation Status Age at Mother Father Sister Alive Normal [facility] echo limited [facility] echo limited [facility] Main [place] [address] [place] [address] Echocardiogram Signed Patient: Chico Baker MR#: [id number] 284 : 1940 Acct:[id number] Age/Sex: 83 / M ADM Date: 08/31/23 Loc: Room: Type: [facility] Attending Dr: Sheri Christiansen MD Ordering Provider: Sheri Christiansen MD Date of Service: 08/31/23 [facility] echo limited: I35.0 - Nonrheumatic aortic [...] mmHg Transcribed By: SCV Performed At: 08/31/23 9687 Signed By: Judah Harrington MD 08/31/23 1723 Normal [facility] FPG ECG *CARDIOLOGY ONLY*on 08-19-2023 FPG ECG *CARDIOLOGY ONLY* [facility] [place] [address] Electrocardiograph Report Signed Patient: Chico Baker MR#: [id number] : 1940 Acct:[id number] Age/Sex: 83 / M ADM Date: 08/19/23 Loc: EKGCARDIO Room: Type: [facility] Attending Dr: Sheri Christiansen MD Ordering Provider: [...] rhythm Normal ECG Confirmed by Sheri Christiansen ([id number]) on 08/20/2023 12:14:54 AM Referred By: Electronically Signed By:Sheri Christiansen Transcribed By: MUS Signed By Sheri Christiansen MD 4 0014 Normal [facility] 2908-18-2023 29 Addended by: NICOLE MONTES on: 08/19/2023 11:25 AM Modules accepted: Orders Normal [facility] APTTon 08-18-2023 ACTIVATED PARTIAL THROMBOPLASTIN TIME IN PPP BY COAGULATION ASSAY 32.1 Seconds Normal 25.0-35.0 [facility] Comment on above: Result Comment: Clin ical significance of the APTT is questionable in the presence of heparin. Performed By: #### L [id number] #### [facility] (BEAKER) [address] [place] [address] CANCER ANTIGEN 19-9on 2023 CANCER AG 19-9 (U/ML) IN SER/PLAS <2 Normal <=35 [facility] Comment on above: Result Comment: INTE RPRETIVE [...] or absence of malignant disease. Performed By: [facility] [address] [place] [address] Garment Finisher: Mario Mckeon MD, PhD CLIA Number: [id number] Performed By: #### L [id number] ####[facility] ([facility])[address] [place] [address] CBCon 08-18-2023 Erythrocyte distribution width (RBC) [Ratio] 12.6 % Normal 11.5-15.0 [facility] Comment on above: Performed By: #### L [id number] #### [facility] ([facility]) [address] [place] [address] ERYTHROCYTE MEAN CORPUSCULAR HEMOGLOBIN CONCENTRATION (G/DL) BY AUTOMATED 32.3 g/dL Normal 32.0-35.0 [facility] Comment on above: Performed By: #### L [id number] #### [facility] ([facility]) [address] [place] [address] Hematocrit (Bld) [Volume fraction] 37.8 % Low 39.0-55.0 [facility] Comment on above: Performed By: #### L [id number] #### [facility] ([facility] [address] [place] [address] Hemoglobin (Bld) [Mass/Vol] 12.2 g/dL Low 13.0-17.0 [facility] Comment on above: Performed By: #### L [id number] #### [facility] (BEAKER) [address] [place] [address] MCH (RBC) [Entitic mass] 30.7 pg Normal 27.0-33.0 [facility] Comment on above: Performed By: #### L [id number] #### [facility] (BEAKER) [address] [place] [address] MCV (RBC) [Entitic vol] 95.0 fL Normal 82.0-98.0 [facility] Comment on above: Performed By: #### L [id number] #### [facility] (BEAKER) [address] [place] [address] PLATELETS (10*3/UL) IN BLOOD AUTOMATED COUNT 206 10*3/uL Normal 150-400 [facility] Comment on above: Performed By: #### L [id number] #### [facility] ([facility]) [address] [place] [address] RBC (Bld) [#/Vol] 3.98 10*6/uL Low 4.20-5.70 [facility] Comment on above: Performed By: #### L [id number] #### [facility] ([facility]) [address] [place] [address] WBC (Bld) [#/Vol] 10.15 10*3/uL Normal 4.00-10.60 [facility] Comment on above: Performed By: #### L [id number] #### [facility] ([facility]) [address] [place] [address] COMPREHENSIVE METABOLIC PANE [place] 08-18-2023 Albumin [Mass/Vol] 4.1 g/dL Normal 3.5-5.7 [facility] Comment on above: Performed By: #### L [id number] #### [facility] ([facility]) [address] [place] [address] ALP [Catalytic activity/Vol] 122 U/L High 34-104 [facility] Comment on above: Performed By: #### L [id number] #### [facility] ([facility]) [address] [place] [address] ALT [Catalytic activity/Vol] 8 U/L Normal 7-52 [facility] Comment on above: Performed By: #### L [id number] #### [facility] ([facility]) [address] [place] [address] Anion gap [Moles/Vol] 12 mmol/L Normal 7-20 [facility] Comment on above: Performed By: #### L [id number] #### [facility] ([facility]) [address] [place] [address] AST [Catalytic activity/Vol] 12 U/L Low 13-39 [facility] Comment on above: Performed By: #### L [id number] #### [facility] ([facility] [address] [place] [address] Bilirubin [Mass/Vol] 0.5 mg/dL Normal 0.3-1.0 [facility] Comment on above: Performed By: #### L [id number] #### [facility] ([facility]) [address] [place] [address] Calcium [Mass/Vol] 8.9 mg/dL Normal 8.6-10.3 [facility] Comment on above: Performed By: #### L [id number] #### [facility] ([facility] [address] [place] [address] Chloride [Moles/Vol] 102 mmol/L Normal 98-107 [facility] Comment on above: Performed By: #### L [id number] #### [facility] ([facility] [address] [place] [address] CO2 [Moles/Vol] 26 mmol/L Normal 21-31 [facility] Comment on above: Performed By: #### L [id number] #### [facility] ([facility]) [address] [place] [address] Creatinine [Mass/Vol] 1.02 mg/dL Normal 0.70-1.30 [facility] Comment on above: Performed By: #### L [id number] #### [facility] ([facility]) [address] [place] [address] GLOMERULAR FILTRATION RATE ML/MIN/1.73 SQ M.PREDICTED 73.8 mL/min/1.73m*2 Normal >60.0 [facility] Comment on above: Result Comment: The [facility]???s estimated glomerular filtration rate (eGFR) will no [...] group of individuals. Performed By: #### L [id number] #### [facility] ([facility]) [address] [place] [address] Glucose [Mass/Vol] 100 mg/dL Normal 70-100 [facility] Comment on above: Performed By: #### L [id number] #### [facility] ([facility]) [address] [place] [address] Potassium [Moles/Vol] 4.7 mmol/L Normal 3.5-5.1 [facility] Comment on above: Performed By: #### L [id number] #### [facility] ([facility]) [address] [place] [address] Protein [Mass/Vol] 7.8 g/dL Normal 6.0-8.3 [facility] Comment on above: Performed By: #### L [id number] #### [facility] ([facility]) [address] [place] [address] Sodium [Moles/Vol] 135 mmol/L Low 136-145 [facility] Comment on above: Performed By: #### L [id number] #### [facility] ([facility]) [address] [place] [address] Urea nitrogen [Mass/Vol] 24 mg/dL Normal 7-25 [facility] Comment on above: Performed By: #### L [id number] #### [facility] ([facility]) [address] [place] [address] UREA NITROGEN/CREATININE (MASS RATIO) IN SER/PLAS 23.5 Normal [facility] Comment on above: Performed By: #### L [id number] #### [facility] ([facility]) [address] [place] [address] Labon 08-18-[id number] 1940 M Date Provider Department [place] 08/18/2023 2242-[facility] RESOURCE [facility] Comprehensiv Family History Problem Relation Age of Onset Heart disease Mother No Known Problems Father No Known Problems Sister Family Status - Relation Status Age at Mother Father Sister Alive Normal [facility] Office Visiton 08-18-2023 Follow-up visit [id number] [address]ice [address] J 1940 M Date Provider Department [place] 08/18/2023 [id number] BRYANT ONC DCC Family History Problem Relation Age of Onset Heart disease Mother No Known Problems Father No Known Problems Sister Family Status - Relation Status Age at Mother Father Sister Alive Level of Service:38538 [place] OFFICE/OUTPATIENT ESTABLISHED HIGH MDM 40 MIN Reason for Visit and Comments: 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 Review MRCP that was done yesterday. Normal [facility] PROTIME-INRon 08-18-2023 INR IN PPP BY COAGULATION ASSAY 1.03 Normal 0.90-1.10 [facility] Comment on above: Result Comment: ACCC P [...] 1995;108:[id number]. Performed By: #### L [id number] #### [facility] ([facility] [address] [place] [address] PROTHROMBIN TIME (PT) IN PPP BY COAGULATION ASSAY 13.5 Seconds Normal 12.3-14.8 [facility] Comment on above: Performed By: #### L [id number] #### [facility] ([facility]) [address] [place] [address] TYPE AND SCREENon 08-18-2023 AB SCREEN Negative Normal [facility] Comment on above: Performed By: #### L AB320 #### [facility] ([facility]) [address] [place] [address] ABO group Nom (Bld) A Normal [facility] Comment on above: Performed By: #### L AB320 #### [facility] ([facility]) [address] [place] [address] RH TYPE IN BLOOD Positive Normal [facility] Comment on above: Performed By: #### L AB320 #### [facility] ([facility]) [address] [place] [address] MR ABDOMEN WO CONTRAST MRCPo n 08-17-2023 [...] Rodriguez MD. Not Vldtd Invalid Interpretation Code [facility] Comment on above: Order Comment: Gallb ladder mass. 08-13-2023 29 Addended by: MARIA EUGENIA BERRY on: 08/13/2023 11:35 AM Modules accepted: Orders Normal [facility] 29 Addended by: NICOLE MONTES on: 08/16/2023 11:34 AM Modules accepted: Orders Normal [facility] Office Visiton 08-13-2023 Follow-up visit [id number] [address] 1940 M Date Provider Department Center 08/13/2023 465-MARIA EUGENIA BERRY DCC ONC DCC Family History Problem Relation Age of Onset Heart disease Mother No Known Problems Father No Known Problems Sister Family Status - Relation Status Age at Mother Father Sister Alive Level of Service:NOCHG [place]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 Normal [facility] Orders Onlyon 08-04-2023 Orders Only [id number] [address] 1940 M Date Provider Department Center 08/04/2023 [id number], HISTORICAL DCC ONC DCC No family history on file Normal [facility] CT angio abdomen pelvison CT angio abdomen pelvis [facility] [place] [address] CT Scan Report Signed Patient: Chico Baker MR#: [id number] : 1940 Acct:[id number] Age/Sex: 83 / M ADM Date: 06/16/23 Loc: CT Room: Type: [facility] Attending Dr: Raul Quan MD Copies [...] aortic 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 Impression dictated by: Woody Payan Jr., AmairaniOSilvestre06/16/2023 1:59 PM Dictation Location: [place] [address] Transcribed By: [facility] 06/16/23 1359 Dictated By: Woody Payan Jr, DO 06/16/23 1351 Signed By: 06/16/23 1359 Normal [facility] ISTAT XRay CREon 06-16-2023 ISTAT GFR > 60.0 Normal [facility] Comment on above: Result Comment: PERF ORMED BY: [place] [address] PATHOLOGIST ASSEMBLER GARMENT FORM ZENA CASTELLON M.D. Performed By: #### I SCRE #### [address] No Panel InformationOrdered By: Raul Quan on 04-10-2024 Bedside Estimated GFR (eGFR) > 60.0 [facility] Whole blood creatinine measu rementOrdered By: Raul Quan on 06-16-2023 Creatinine [Mass/Vol] 0.9 mg/dL Normal 0.6-1.3 [facility] Comment on above: ER/ESD physician is notified/shown all ISTAT results.Critical values may be confirmed by laboratory testing ifdeemed necessary by ER attending doctor. Result Comment: ER/E SD physician is notified/shown all ISTAT results. Critical values may be confirmed by laboratory testing if deemed necessary by ER attending doctor. Performed By: #### I SCRE #### [facility] [address] Calculus Analysison 05-12-19 24 Calcium oxalate dihydrate Infrared spectroscopy (Stone) [Mass fraction] 20 % Invalid Interpretation Code [facility] Comment on above: Performed By: #### 1 [id number] ####[facility] [address] [place] [address] Calcium oxalate monohydrate (Stone) [Mass fraction] 80 % Invalid Interpretation Code [facility] Comment on above: Performed By: #### 1 [id number] ####[facility] [address] [place] [address] Color (Stone) Brown Invalid Interpretation Code [facility] Comment on above: Performed By: #### 1 [id number] ####[facility] [address] [place] [address] Composition Comment Invalid Interpretation Code [facility] Comment on above: Result Comment: Perc entage (Represents the % composition) Performed By: #### 1 [id number] ####[facility] [address] [place] [address] Disclaimer: Comment Invalid Interpretation Code [facility] Comment on above: Result Comment: This test was developed and its performance characteristics determined by [facility]. It has not been cleared or approved by the Food and Drug Administration. Performed at: [facility] [address] [id number] Emanuel Silverman Performed By: #### 1 [id number] ####[facility] [address] [place] [address] Laboratory comment Daniel (Report) Comment Invalid Interpretation Code [facility] Comment on above: Result Comment: Mina aguilar questions regarding Calculi Analysis contact [facility] at: [phone]. Performed By: #### 1 [id number] ####[facility] [address] [place] [address] Please Note: Comment Invalid Interpretation Code [facility] Comment on above: Result Comment: Calc melissa report will follow via computer, mail or hand tool filer delivery. Performed By: #### 1 [id number] ####[place] [place] [address] Size (Stone) [Entitic vol] 2x3 Invalid Interpretation Code [facility] Comment on above: Result Comment: Mult iple pieces received. Dimensions of the largest piece reported. Performed By: #### 1 [id number] ####[address] [address] Specimen source subject Nom Comment Invalid Interpretation Code [facility] Comment on above: Result Comment: Not provided Performed By: #### 1 [id number] ####[facility] [address] [place] [address] Stone Photo Comment Invalid Interpretation Code [facility] Comment on above: Result Comment: Phot ograph will follow under a separate cover Performed By: #### 1 [id number] ####[facility] [address] [place] [address] Weight (Stone) 12 mg Invalid Interpretation Code [facility] Comment on above: Performed By: #### 1 [id number] ####[facility] [address] [place] [address] Consent for Procedure/Surger yon 05-05-2023 Consent for Procedure/Surgery [id number]#1.00TIFF Normal [facility] RAD - MISCon 05-05-2023 RAD - MISC [id number]#1.00TIFF [facility] Ambulatory Visit Summaryon 0 05-04-2023 Ambulatory [...] Ivelisse Hassan MD Primary Care Physician - ENRICO AMADOR, SHAILESH [...] [facility] Patient Educationon 05-04-19 Patient Education Nephrology Dietary [...] ? 8 oz (237 mL) of milk, vewqepz-caarhjkkjeua-epbdc milk, and calcium-fortifiedfruit juice. Calcium-fortified means that [...] Spinach (cooked), rhubarb, beets, sweet potatoes, and Nigerien chard. ? Peanuts. ? Potato chips, cayman islander fries, and baked potatoes with skin on. ? Nuts and nut products. ? Chocolate. ? If you regularly take a diuretic medicine, make sure to eat at least 1 or 2 servings of fruits or vegetables that are high in potassium each day. These include: ? Avocado. ? Banana. ? [place], prune, carrot, or tomato juice. ? Baked [...] fish oil, or vitamin B6. ? Take vjbn-iqz-rqziypw and prescription medicines only as told by your health care provider. These include supplements. What foods sh (more content not included)... Normal [facility] RAD - MISCon 05-04-2023 RAD - MIS [id number]#1.00TIFF Normal [facility] Urology Office/Clinic Noteon 05-04-2023 Urology Office/Clinic [...] lower urinary tract symptoms) hx TURP by [facility] 2019, prostate small on 05/11/22 CT scan [...] ago, denies complications. 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 Normal [facility] Comment on above: Result Comment: Elec tronically Signed By: Ivelisse Hassan MD\.br\Date and Time Signed: 05/04/23 12:02 EST\.br\Electronically Co-Signed By: Eleonora Belcher\.br\Date and Time Co-Signed: 05/04/23 11:47 EST Operative Reporton Operative Report [id number]#1.00TIFF Normal [facility] Physician Orderon 04-29-2023 Physician Order [id number]#1.00TIFF Normal [facility] RAD - MISCon 04-28-2023 RAD - MISC [id number]#1.00TIFF Normal [facility] Consultation Noteon 04-23-19 Consultation Note [id number]#1.00TIFF Normal [facility] Formson 04-23-2023 Forms [id number]#1.00TIFF Normal [facility] Consent for Procedure/Surger yon 04-21-2023 Consent for Procedure/Surgery [id number]#1.00TIFF [facility] Lab Reportson 04-21-2023 Lab Reports [id number]#1.00TIFF Normal [facility] Lab Reports [id number]#1.00TIFF Normal [facility] Activated partial thrombopla stin time (aPTT) in platelet poor plasma by coagulation aon 04-20-2023 aPTT Coag (PPP) [Time] 32.6 s 22.3-36.2 [facility] Basophils Auto (Bld) [#/Vol] on 04-20-2023 Basophils (Bld) [#/Vol] 0.1 10 3/uL 0.0-0.1 [facility] Basophils/100 WBC Auto (Bld) on 04-20-2023 Basophils/100 WBC (Bld) 0.5 % 0.2-2.0 [facility] Eosinophils/100 WBC Auto (Bl d)on 04-20-2023 Eosinophils/100 WBC (Bld) 1.2 % 0.9-7.0 [facility] Erythrocyte distribution wid th Auto (RBC) [Ratio]on 04-20-2023 Erythrocyte distribution width (RBC) [Ratio] 12.4 % 11.0-15.0 [facility] Estimated glomerular filtrat ion rate (GFR) non- Americanon 04-20-2023 GFR/1.73 sq M.predicted among non-blacks MDRD (S/P/Bld) [Vol rate/Area] mL/min/{1.73_m2} >=60 [facility] Formson 04-20-2023 Forms [id number]#1.00TIFF Normal [facility] Hematocrit Auto (Bld) [Volum e fraction]on 04-20-2023 Hematocrit (Bld) [Volume fraction] 36.7 % 42.0-54.0 [facility] Hemoglobin [Mass/volume] in Bloodon 04-20-2023 Hemoglobin (Bld) [Mass/Vol] 11.5 g/dL 14.0-18.0 [facility] INR in Platelet poor plasma by Coagulation assayon 04-20-2023 INR Coag (PPP) [Relative time] 1.01 {INR} [facility] Comment on above: DESIRED INR:2.0-3.0 CONDITIONS NOT LISTED BELOW2.5-3.5 FOR PROSTHETIC HEART VALVE REPLACEMENT2.5-3.5 RECURRENT THROMBOSIS Laboratory - Chemistry and C hemistry - challengeon 04-20-2023 Calcium [Mass/Vol] 9.0 mg/dL 8.5-10.1 [facility] Chloride [Moles/Vol] 104 mmol/L 98-107 [facility] CO2 [Moles/Vol] 28.9 mmol/L 21.0-32.0 [facility] Creatinine [Mass/Vol] 0.89 mg/dL 0.70-1.30 [facility] GFR/1.73 sq M.predicted MDRD (S/P/Bld) [Vol rate/Area] mL/min/{1.73_m2} >=60 [facility] Glucose [Mass/Vol] 133 mg/dL 74-106 [facility] Potassium [Moles/Vol] 4.6 mmol/L 3.5-5.1 [facility] Sodium [Moles/Vol] 140 mmol/L 136-145 [facility] Urea nitrogen [Mass/Vol] 15.0 mg/dL 7.0-18.0 [facility] Urea nitrogen/Creatinine [Mass ratio] 16.9 mg/mg [facility] Laboratory - Hematology and Cell countson 04-20-2023 Immature granulocytes/100 WBC (Bld) 0.3 % 0.0-0.5 [facility] Leukocytes [#/volume] correc shyann for nucleated erythrocytes in Blood by Automated counon 04-20-2023 WBC corrected for nucl RBC Auto (Bld) [#/Vol] 9.9 10 3/uL 4.0-11.0 [facility] Lymphocytes Auto (Bld) [#/Vo l]on 04-20-2023 Lymphocytes (Bld) [#/Vol] 1.1 10 3/uL 1.2-3.8 [facility] Lymphocytes/100 WBC Auto (Bl d)on 04-20-2023 Lymphocytes/100 WBC (Bld) 11.3 % 20.5-60.0 [facility] MCH Auto (RBC) [Entitic mass ]on 04-20-2023 MCH (RBC) [Entitic mass] 29.6 pg 25.9-34.0 [facility] MCHC Auto (RBC) [Mass/Vol]on 04-20-2023 MCHC (RBC) [Mass/Vol] 31.3 g/dL 29.9-35.2 [facility] MCV Auto (RBC) [Entitic vol] on 04-20-2023 MCV (RBC) [Entitic vol] 94.6 fL 80.0-94.0 [facility] Monocytes Auto (Bld) [#/Vol] on 04-20-2023 Monocytes (Bld) [#/Vol] 0.8 10 3/uL 0.3-0.8 [facility] Monocytes/100 WBC Auto (Bld) on 04-20-2023 Monocytes/100 WBC (Bld) 8.5 % 1.7-12.0 [facility] Neutrophils Auto (Bld) [#/Vo l]on 04-20-2023 Neutrophils (Bld) [#/Vol] 7.8 10 3/uL 1.4-6.5 [facility] Neutrophils/100 WBC Auto (Bl d)on 04-20-2023 Neutrophils/100 WBC (Bld) 78.2 % 43.0-75.0 [facility] No Panel Informationon 04-20 Eosinophils # (Auto) 0.1 10 3/uL 0.0-0.7 [facility] Immature Granulocyte # (Auto) 0.03 10 3/uL 0.00-0.03 [facility] Platelet mean volume Auto (B ld) [Entitic vol]on 04-20-2023 Platelet mean volume (Bld) [Entitic vol] 9.4 fL 9.5-13.5 [facility] Platelets Auto (Bld) [#/Vol] on 04-20-2023 Platelets (Bld) [#/Vol] 188 10 3/uL 150-450 [facility] Prothrombin time (PT)on 04-08 PT Coag (PPP) [Time] 10.7 s 9.0-11.6 [facility] RBC Auto (Bld) [#/Vol]on RBC (Bld) [#/Vol] 3.88 10 6/uL 4.70-6.10 [facility] Serum or plasma anion gap de terminationon 04-20-2023 Anion gap [Moles/Vol] 11.7 mmol/L [facility] RAD - MISCon 04-08-2023 [facility] - MIS [id number]#1.00TIFF Normal [facility] Operative Reporton Operative Report [id number]#1.00TIFF Normal [facility] RAD - MISCon 03-25-2023 RAD - MISC [id number]#1.00TIFF Normal [facility] Consent for Procedure/Surger yon 03-22-2023 Consent for Procedure/Surgery [id number]#1.00TIFF Normal [facility] Lab Reportson 03-19-2023 Lab Reports [id number]#1.00TIFF Normal [facility] RAD - MISCon 03-19-2023 RAD - [facility] [id number]#1.00TIFF Normal [facility] Reminderson 03-03-2023 Reminders - From: Faviola Clemens To: EU - Recalls Lue; Sent: 01/13/2023 10:01:25 EST Show up: 02/12/2023 10:01:00 EST Subject: LINDSEY and KUB Due Date/Time: 02/12/2023 10:01:00 EST Pt to have LINDSEY and KUB done in March at [facility]. Orders placed. Possible ESWL pending size of stones. No follow up at this time. Pt to be called with results. Called pt and reminded him to complete LINDSEY/KUB @ [facility] in the next month. Orders were faxed today. From: Sarika Horta (EU - Recalls Lue) To: ADALGISA ANTOINE PA-C; Sent: 02/22/2023 09:37:39 EST Show up: 02/22/2023 09:31:00 EST Subject: RE: LINDSEY and KUB 02/19/23 KUB: 02/19/23 LINDSEY: Per last OV, possible ESWL. Next steps? From: ADALGISA ANTOINE PA-C To: Ivelisse Hassan MD; Sent: 02/22/2023 16:06:07 EST ! Show up: 02/22/2023 16:05:00 EST From: Belkis Johnson MA (EU - Recalls Lue) To: Ivelisse Hassan MD; Sent: 02/25/2023 13:44:44 EST Show up: 02/25/2023 13:44:00 EST Subject: RE: LINDSEY and KUB Pt called requesting results From: Mo LEIJA, Ivelisse Schreiber To: Sandi Ibarra; Sent: 02/25/2023 17:11:14 EST [...] KML Patient is scheduled for 03/24/22 @ [facility] Comment on above: Result Comment: Miss ing Attachment - attachment exceeds size limitation (02/19/2023) RAD - Ultrasound Report Can be viewed in source system Missing Attachment - attachment exceeds size limitation (02/19/2023) RAD - MISC Can be viewed in source system RAD - MISCon 02-22-2023 RAD - MISC [id number]#1.00TIFF [facility] RAD - Ultrasound Reporton RAD - Ultrasound Report [id number]#1.00TIFF [facility] Screenson 01-14-2023 Screens [id number]#1.00TIFF [facility] Screens [id number]#1.00TIFF [facility] Patient Educationon 01-14-20 Patient Education Urology [...] Follow these instructions at home: ? Take xqtp-guw-pzcmyhz and prescription medicines only as told by [...] the medicine (more content not included)... Normal [facility] Urology Office/Clinic Noteon 01-13-2023 Urology Office/Clinic [...] with voice recognition artificial intelligence software, specifically [employer] and or [employer]. Substitutions may have occurred due to the inherent limitations of voice recognition and artificial intelligence software. 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 Normal [facility] Comment on above: Result Comment: Elec tronically Signed By: Ivelisse Hassan MD\.br\Date and Time Signed: 01/13/23 16:25 EST\.br\Electronically Co-Signed By: Faviola Clemens\.br\Date and Time Co-Signed: 01/13/23 09:59 EST Screenson 10-08-2022 Screens [id number]#1.00CD:127 Normal [facility] Screens [id number]#1.00CD:127 [facility] Ambulatory Visit Summaryon 0 10-07-2022 Ambulatory Visit Summary CHICO BAKER :1940 Visit Date:10/07/2022 Ambulatory Visit Instructions Your Diagnosis BPH with obstruction/lower urinary tract symptoms History of kidney stones Asymptomatic microscopic hematuria 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 Tests Performed Urnls Dip Stick Auto w/o Microscopy POC [id number] Your Care Team Attending Physician - Ivelisse [...] LEIJA, Ivelisse Schreiber Where: [facility] Patient Educationon 10-08-19 Patient Education [...] Follow these instructions at home: ? Take wckv-llx-mtkwxrh and prescription medicines only as told by [...] the medicine (more content not included)... Normal [facility] Urology Office/Clinic Noteon 10-07-2022 Urology Office/Clinic [...] lower urinary tract symptoms) hx TURP by [facility] 2019, prostate small on 05/11/22 CT scan [...] neg, s (more content not included)... Normal [facility] Comment on above: Result Comment: Elec tronically Signed By: Ivelisse Hassan MD\.br\Date and Time Signed: 10/07/22 10:28 EDT\.br\Electronically Co-Signed By: Eleonora Belcher.br\Date and Time Co-Signed: 10/07/22 09:25 EDT Consent for Procedure/Surger yon 07-29-2022 Consent for Procedure/Surgery [id number]#1.00CD:127 Normal [facility] Patient Educationon 07-29-19 Patient Education [...] these instructions at home: Medicines ? Take clnr-hji-tgzobvo and prescription medicines only as told by [...] include cig (more content not included)... Normal [facility] Urology Office/Clinic Noteon 07-28-2022 Urology [...] urine The Urethra was dilated to: 16-24 Croatian with connor sounds without difficulty Soft 14 [...] (erectile d (more content not included)... Normal [facility] Comment on above: Result Comment: Elec tronically Signed By: Mo LEIJA, Ivelisse Schreiber\.br\Date and Time Signed: 07/28/22 10:49 EDT\.br\Electronically Co-Signed By: Clarissa Joaquin MA\.br\Date and Time Co-Signed: 07/28/22 10:28 EDT Blood activated clotting sue e by coagulation assayOrdered By: Raul Quan on 07-08-2022 ACT Coag (Bld) 335 s 90-139 [facility] Comment on above: Reference Range: 90- 139 (Non-heparinized) Laboratory - CoagulationOrde red By: Raul Quan on 07-08-2022 PT Coag (PPP) [Time] 11.7 s 9.0-12.9 [facility] Platelet poor plasma interna tional normalized ratio (INR) by coagulation assay (relatOrdered By: Raul Quan on 07-08-2022 INR Coag (PPP) [Relative time] 1.0 {INR} [facility] Comment on above: INR Therapeutic Rang [...] 07-01-2022 ALT [Catalytic activity/Vol] 9 U/L 7-52 [facility] Albumin [Mass/volume] in Ser um or Plasma by Bromocresol green (BCG) dye binding methoOrdered By: Raul Quan on 07-01-2022 Albumin BCG dye [Mass/Vol] 3.7 g/dL 3.5-5.7 [facility] Alkaline phosphatase [Enzyma tic activity/volume] in Serum or PlasmaOrdered By: Raul Quan on 07-01-2022 ALP [Catalytic activity/Vol] 96 U/L 34-104 [facility] Aspartate aminotransferase [ Enzymatic activity/volume] in Serum or PlasmaOrdered By: Raul Quan on 07-01-2022 AST [Catalytic activity/Vol] 14 U/L 13-39 [facility] Basophils Auto (Bld) [#/Vol] Ordered By: Raul Quan on 07-01-2022 Basophils (Bld) [#/Vol] 0.1 10*3/uL 0.0-0.2 [facility] Basophils/100 WBC Auto (Bld) Ordered By: Raul Quan on 07-01-2022 Basophils/100 WBC (Bld) 0.7 % . [facility] Bilirubin.total [Mass/volume ] in Serum or PlasmaOrdered By: Raul Quan on 07-01-2022 Bilirubin [Mass/Vol] 0.5 mg/dL 0.3-1.0 [facility] Calcium [Mass/volume] in Ser um or PlasmaOrdered By: Raul Quan on 07-01-2022 Calcium [Mass/Vol] 8.5 mg/dL 8.6-10.3 [facility] Carbon dioxide, total [Moles /volume] in Serum or PlasmaOrdered By: Raul Quan on 07-01-2022 CO2 [Moles/Vol] 24.6 mmol/L 21.0-31.0 [facility] Chloride [Moles/volume] in S aisha or PlasmaOrdered By: Raul Quan on 07-01-2022 Chloride [Moles/Vol] 100 mmol/L 98-107 [facility] Creatinine [Mass/volume] in Serum or PlasmaOrdered By: Raul Quan on 07-01-2022 Creatinine [Mass/Vol] 0.87 mg/dL 0.70-1.30 [facility] Eosinophils Auto (Bld) [#/Vo l]Ordered By: Raul Quan on 07-01-2022 Eosinophils (Bld) [#/Vol] 0.1 10*3/uL 0.0-0.45 [facility] Eosinophils/100 WBC Auto (Bl d)Ordered By: Raul Quan on 07-01-2022 Eosinophils/100 WBC (Bld) 1.5 % . [facility] Erythrocyte distribution wid th Auto (RBC) [Ratio]Ordered By: Raul Quan on 07-01-2022 Erythrocyte distribution width (RBC) [Ratio] 13.0 % 12.0-14.8 [facility] Globulin Calc (S) [Mass/Vol] Ordered By: Raul Quan on 07-01-2022 Globulin (S) [Mass/Vol] 3.4 g/dL [facility] Glucose [Mass/volume] in Ser um or PlasmaOrdered By: Raul Quan on 07-01-2022 Glucose [Mass/Vol] 163 mg/dL 70-100 [facility] Comment on above: ADA recommended refe rence rangeRandom Glucose Reference Range is dependent on time and content of last meal. Glucose of more than 200 mg/dL in a nonstressed, ambulatory subject supports the diagnosis of Diabetes Mellitus. Hematocrit Auto (Bld) [Volum e fraction]Ordered By: Raul Quan on 07-01-2022 Hematocrit (Bld) [Volume fraction] 36.4 % 38.8-50.0 [facility] Hemoglobin [Mass/volume] in BloodOrdered By: Raul Quan on 07-01-2022 Hemoglobin (Bld) [Mass/Vol] 12.1 g/dL 13.0-17.0 [facility] Leukocytes [#/volume] correc shyann for nucleated erythrocytes in Blood by Automated counOrdered By: Raul Quan on 07-01-2022 WBC corrected for nucl RBC Auto (Bld) [#/Vol] 8.5 10*3/uL 4.1-10.5 [facility] Lymphocytes Auto (Bld) [#/Vo l]Ordered By: Raul Quan on 07-01-2022 Lymphocytes (Bld) [#/Vol] 1.6 10*3/uL 1.00-4.8 [facility] Lymphocytes/100 WBC Auto (Bl d)Ordered By: Raul Quan on 07-01-2022 Lymphocytes/100 WBC (Bld) 19.3 % . [facility] MCH Auto (RBC) [Entitic mass ]Ordered By: Raul Quan on 07-01-2022 MCH (RBC) [Entitic mass] 30.2 pg 27.5-35.2 [facility] MCHC Auto (RBC) [Mass/Vol]Or dered By: Raul Quan on 07-01-2022 MCHC (RBC) [Mass/Vol] 33.3 g/dL 32.5-35.6 [facility] MCV Auto (RBC) [Entitic vol] Ordered By: Raul Quan on 07-01-2022 MCV (RBC) [Entitic vol] 90.7 fL 83.5-101 [facility] Monocytes Auto (Bld) [#/Vol] Ordered By: Raul Quan on 07-01-2022 Monocytes (Bld) [#/Vol] 0.9 10*3/uL 0.0-0.8 [facility] Monocytes/100 WBC Auto (Bld) Ordered By: Raul Quan on 07-01-2022 Monocytes/100 WBC (Bld) 11.1 % . [facility] Neutrophils Auto (Bld) [#/Vo l]Ordered By: Raul Quan on 07-01-2022 Neutrophils (Bld) [#/Vol] 5.7 10*3/uL 1.8-7.7 [facility] Neutrophils/100 WBC Auto (Bl d)Ordered By: Raul Quan on 07-01-2022 Neutrophils/100 WBC (Bld) 67.4 % . [facility] No Panel InformationOrdered By: Raul Quan on 07-01-2022 Estimated GFR (CKD-EPI) > 60.0 mL/Min [facility] Creatinine Clearance (Chem N/A [facility] Nucleated erythrocytes [Pres ence] in Blood by Automated countOrdered By: Raul Quan on 07-01-2022 Nucleated RBC Auto Ql (Bld) 0.0 /100{WBC} 0-0.5 [facility] Platelet mean volume Auto (B ld) [Entitic vol]Ordered By: Raul Quan on 07-01-2022 Platelet mean volume (Bld) [Entitic vol] 7.6 fL 6.6-10.1 [facility] Platelets Auto (Bld) [#/Vol] Ordered By: Raul Quan on 07-01-2022 Platelets (Bld) [#/Vol] 198 10*3/uL 150-450 [facility] Potassium [Moles/volume] in Serum or PlasmaOrdered By: Raul Quan on 07-01-2022 Potassium [Moles/Vol] 4.4 mmol/L 3.5-5.1 [facility] Protein [Mass/volume] in Ser um or PlasmaOrdered By: Raul Quan on 07-01-2022 Protein [Mass/Vol] 7.1 g/dL 6.4-8.9 [facility] RBC Auto (Bld) [#/Vol]Ordere d By: Raul Quan on 07-01-2022 RBC (Bld) [#/Vol] 4.01 10*6/uL 3.90-5.60 [facility] Serum or plasma albumin/glob ulin mass ratioOrdered By: Raul Quan on 07-01-2022 Albumin/Globulin [Mass ratio] 1.1 {ratio} [facility] Serum or plasma anion gap de terminationOrdered By: Raul Quan on 07-01-2022 Anion gap [Moles/Vol] 13.8 mmol/L 6.0-15.0 [facility] Sodium [Moles/volume] in Ser um or PlasmaOrdered By: Raul Quan on 07-01-2022 Sodium [Moles/Vol] 134 mmol/L 136-145 [facility] Urea nitrogen [Mass/volume] in Serum or PlasmaOrdered By: Raul Lawrencemary ann on 07-01-2022 Urea nitrogen [Mass/Vol] 17 mg/dL 7 [facility] WBC Auto (Bld) [#/Vol]Ordere d By: Raul Quan on 07-01-2022 WBC (Bld) [#/Vol] 8.5 10*3/uL 4.1-10.5 [facility] Patient Educationon 06-25-19 Patient Education Urology [...] these instructions at home: Medicines ? Take nlnb-ejy-wgjxfcd and prescription medicines only as told by [...] the blood stops without treatment. ? Take tpbi-xdj-btwwqnw and prescription medicines only as told by your health care provider. ? Drink enough fluid to keep your urine pale yellow. This information is not intended to replace advice given to you by your health care provider. Make sure you discuss any questions you have with your health care provider. Document Revised: 10/23/2020 Document Reviewed: 10/23/2020 [employer] Patient Education ? 2022 [employer] Normal [facility] Screenson 06-24-2022 Screens [id number]:127 Normal [facility] Screens [id number]#[id number]:127 Normal [facility] Urology Office/Clinic Noteon 06-24-2022 Urology Office/Clinic Note Chief Complaint Review CT HPI Staff Pt is here today to review CT done 3/6/23 due to microscopic hematuria & HX of [...] Urnls Dip Stick Auto w/o Microscopy POC 61691 Urology Procedure Order 4. Penile rash (R21: Rash and other nonspecific skin eruption) Pt states rash has completely cleared up after stopping Bactrim. Denies irritation. Head of penis is not red, but is discolored. Not bothersome. D/c use of cream. Resolved Ordered: Urology Procedure Order 5. ED (erectile dysfunction) (N52.9: Male erectile dysfunction, unspecified) (more content not included)... Normal [facility] Comment on above: Result Comment: Elec tronically Signed By: Mo LEIJA, Ivelisse Doll.br\Date and Time Signed: 06/24/22 10:24 EDT RAD - CT Reporton 05-14-2022 RAD - CT Report [id number]#[id number]:127 Normal [facility] Creatinine (Bld) [Mass/Vol]O rdered By: Raul Quan on 05-11-2022 Creatinine [Mass/Vol] 0.9 mg/dL 0.6-1.3 [facility] Comment on above: ER/ESD physician is notified/shown all ISTAT results.Critical values may be confirmed by laboratory testing ifdeemed necessary by ER attending doctor. No Panel InformationOrdered By: Raul Quan on 05-11-2022 POC Estimated GFR > 60 [facility] Comment on above: GFR estimated refere nce range: According to KDOQI guidelines, <60 ml/min/1.73m2 is sufficient to diagnose a patient with chronic kidney disease. POC Estimated GFR Non- Amer > 60 [facility] URINALYSISOrdered By: Kirstie sanchez on 04-15-2022 [...] Interpretation Code Negative [facility] UA Auto SS [place].plasma/[place] .RBC (Bld) [Mass ratio] 21-30 /HPF Invalid Interpretation Code 0-3/HPF [facility] UA Auto SS Mucus Ql (Urine sed) Trace (04/15/22 12:14 PM) Normal [facility] UA Auto SS Nitrite Ql (U) Negative (04/15/22 12:14 PM) Normal Negative [facility] UA Auto SS pH (U) 6.0 *NA* (04/15/22 12:14 PM) Invalid Interpretation Code 5.0 - 9.0 [facility] Auto SS Protein (U) [Mass/Vol] Negative (04/15/22 12:14 PM) Normal Negative [facility] UA Auto SS Specific gravity (U) [Rel density] >=1.030 *NA* (04/15/22 12:14 PM) Invalid Interpretation Code 1.005 - 1.030 [facility] UA Auto SS UA Spec Desc Random Urine (04/15/22 12:14 PM) Normal [facility] UA Auto SS Urobilinogen Qn (U) 0.8071103 {Nikki'U}/dL Normal 0.0 - 1.0 EU/dL [facility] [...] Interpretation Code Negative [facility] UA Auto SS [place].plasma/[place] .RBC (Bld) [Mass ratio] 4-20 /HPF Normal [...] [facility] UA Auto SS Urobilinogen Qn (U) 0.7404355 {Nikki'U}/dL Normal 0.0 - 1.0 EU/dL [facility] UA Auto SS WBC Auto Ql (U) 1+ *ABN* (02/11/22 10:38 AM) Invalid Interpretation Code Negative [facility] UA Auto SS WBC LM.HPF (Urine sed) [#/Area] 0-5 /HPF Normal 0-5/HPF [facility] UA Auto SS Basophils Auto (Bld) [#/Vol] Ordered By: Raul Quan on 02-05-2022 Basophils (Bld) [#/Vol] 0.1 10*3/uL 0.0-0.2 [facility] Basophils/100 WBC Auto (Bld) Ordered By: Raul Quan on 02-05-2022 Basophils/100 WBC (Bld) 0.6 % . [facility] Creatinine and Glomerular fi ltration rate.predicted panel (S/P/Bld)Ordered By: Raul Quan on 02-05-2022 Creatinine [Mass/Vol] 0.94 mg/dL 0.64-1.27 [facility] Eosinophils Auto (Bld) [#/Vo l]Ordered By: Raul Quan on 02-05-2022 Eosinophils (Bld) [#/Vol] 0.1 10*3/uL 0.0-0.45 [facility] Eosinophils/100 WBC Auto (Bl d)Ordered By: Raul Quan on 02-05-2022 Eosinophils/100 WBC (Bld) 0.7 % . [facility] Erythrocyte distribution wid th Auto (RBC) [Ratio]Ordered By: Raul Quan on 02-05-2022 Erythrocyte distribution width (RBC) [Ratio] 13.8 % 12.0-14.8 [facility] Estimated glomerular filtrat ion rate (GFR) non- AmericanOrdered By: Raul Quan on 02-05-2022 GFR/1.73 sq M.predicted among non-blacks MDRD (S/P/Bld) [Vol rate/Area] > 60 mL/Min [facility] Hematocrit Auto (Bld) [Volum e fraction]Ordered By: Raul Quan on 02-05-2022 Hematocrit (Bld) [Volume fraction] 34.6 % 38.8-50.0 [facility] Hemoglobin [Mass/volume] in BloodOrdered By: Raul Quan on 02-05-2022 Hemoglobin (Bld) [Mass/Vol] 11.4 g/dL 13.0-17.0 [facility] Leukocytes [#/volume] correc shyann for nucleated erythrocytes in Blood by Automated counOrdered By: Raul Quan on 02-05-2022 WBC corrected for nucl RBC Auto (Bld) [#/Vol] 10.3 10*3/uL 4.1-10.5 [facility] Lymphocytes Auto (Bld) [#/Vo l]Ordered By: Raul Quan on 02-05-2022 Lymphocytes (Bld) [#/Vol] 1.5 10*3/uL 1.00-4.8 [facility] Lymphocytes/100 WBC Auto (Bl d)Ordered By: Raul Quan on 02-05-2022 Lymphocytes/100 WBC (Bld) 14.4 % . [facility] MCH Auto (RBC) [Entitic mass ]Ordered By: Raul Quan on 02-05-2022 MCH (RBC) [Entitic mass] 30.1 pg 27.5-35.2 [facility] MCHC Auto (RBC) [Mass/Vol]Or dered By: Raul Quan on 02-05-2022 MCHC (RBC) [Mass/Vol] 32.9 g/dL 32.5-35.6 [facility] MCV Auto (RBC) [Entitic vol] Ordered By: Raul Quan on 02-05-2022 MCV (RBC) [Entitic vol] 91.6 fL 83.5-101 [facility] Monocytes Auto (Bld) [#/Vol] Ordered By: Raul Quan on 02-05-2022 Monocytes (Bld) [#/Vol] 1.5 10*3/uL 0.0-0.8 [facility] Monocytes/100 WBC Auto (Bld) Ordered By: Raul Quan on 02-05-2022 Monocytes/100 WBC (Bld) 14.8 % . [facility] Neutrophils Auto (Bld) [#/Vo l]Ordered By: Raul Quan on 02-05-2022 Neutrophils (Bld) [#/Vol] 7.1 10*3/uL 1.8-7.7 [facility] Neutrophils/100 WBC Auto (Bl d)Ordered By: Raul Quan on 02-05-2022 Neutrophils/100 WBC (Bld) 69.5 % . [facility] No Panel InformationOrdered By: Raul Quan on 02-05-2022 Estimated GFR () > 60 mL/Min [facility] Comment on above: GFR estimated refere nce range: According to KDOQI guidelines, <60 ml/min/1.73m2 is sufficient to diagnose a patient with chronic kidney disease. Pharmacy Creatinine Clearance (Chem 57.50 [facility] Nucleated erythrocytes [Pres ence] in Blood by Automated countOrdered By: Raul Quan on 02-05-2022 Nucleated RBC Auto Ql (Bld) 0.1 /100{WBC} 0-0.5 [facility] Platelet mean volume Auto (B ld) [Entitic vol]Ordered By: Raul Quan on 02-05-2022 Platelet mean volume (Bld) [Entitic vol] 7.9 fL 6.6-10.1 [facility] Platelets Auto (Bld) [#/Vol] Ordered By: Raul Quan on 02-05-2022 Platelets (Bld) [#/Vol] 142 10*3/uL 150-450 [facility] Comment on above: Delta: 198 on -0825 RBC Auto (Bld) [#/Vol]Ordere d By: Raul Quan on 02-05-2022 RBC (Bld) [#/Vol] 3.77 10*6/uL 3.90-5.60 [facility] Serum or plasma anion gap de terminationOrdered By: Raul Quan on 02-05-2022 Anion gap [Moles/Vol] 10.4 mmol/L 6.0-15.0 [facility] Serum or plasma calcium richy urement (mass/volume)Ordered By: Raul Quan on 02-05-2022 Calcium [Mass/Vol] 8.4 mg/dL 8.2-10.2 [facility] Serum or plasma chloride young surement (moles/volume)Ordered By: Raul Quan on 02-05-2022 Chloride [Moles/Vol] 101 mmol/L 95-114 [facility] Serum or plasma glucose richy urement (mass/volume)Ordered By: Raul Quan on 02-05-2022 Glucose [Mass/Vol] 109 mg/dL 70-100 [facility] Comment on above: ADA recommended refe rence rangeRandom Glucose Reference Range is dependent on time and content of last meal. Glucose of more than 200 mg/dL in a nonstressed, ambulatory subject supports the diagnosis of Diabetes Mellitus. Serum or plasma potassium me asurement (moles/volume)Ordered By: Raul Quan on 02-05-2022 Potassium [Moles/Vol] 4.6 mmol/L 3.5-5.1 [facility] Serum or plasma sodium measu rement (moles/volume)Ordered By: Raul Quan on 02-05-2022 Sodium [Moles/Vol] 135 mmol/L 136-146 [facility] Serum or plasma total carbon dioxide measurement (moles/volume)Ordered By: Raul Quan on 02-05-2022 CO2 [Moles/Vol] 28.2 mmol/L 22.0-30.0 [facility] Serum or plasma urea nitroge n measurement (mass/volume)Ordered By: Raul Quan on 02-05-2022 Urea nitrogen [Mass/Vol] 11 mg/dL 9- [facility] WBC Auto (Bld) [#/Vol]Ordere d By: Raul Quan on 02-05-2022 WBC (Bld) [#/Vol] 10.3 10*3/uL 4.1-10.5 [facility] Covid-19 PCR (CVDTBH)on 01-07 SARS-CoV-2 (COVID-19) RNA JESSIE+probe Ql (Unsp spec) Not detected Normal NOT DETECTED [facility] Comment on above: Result Comment: This test is not yet approved or cleared by the [place] FDA. When there are no FDA-approved or cleared tests available, and other criteria are met, FDA can make tests available under an emergency access mechanism called an Emergency Use Authorization (EUA). The EUA for this test is supported by the Clinical Safety Manager of Health and Human Service's (HHS's) [...] SARS-CoV-2. Performed By: #### C VDTB #### [facility] [address] [place] [address] Dr. Jodi Oglesby CBC AUTO DIFFon 12-08-2021 BASO # 0.1 103/ul Normal 0.0-0.1 [facility] Comment on above: Performed By: #### D ATA1C #### [facility] [address] [place] [address] Dr. Jodi Oglesby Basophils/100 WBC (Bld) 0.5 % Normal 0.2-2.0 [facility] Comment on above: Performed By: #### D ATA1C #### [facility] [address] [place] [address] Dr. Jodi Oglesby EO # 0.1 103/ul Normal 0.0-0.7 [facility] Comment on above: Performed By: #### D ATA1C #### [facility] [address] [place] [address] Dr. Jodi Oglesby Eosinophils/100 WBC (Bld) 1.4 % Normal 0.9-7.0 [facility] Comment on above: Performed By: #### D ATA1C #### [facility] [address] [place] [address] Dr. Jodi Oglesby Erythrocyte distribution width (RBC) [Ratio] 13.0 % Normal 11.0-15.0 [facility] Comment on above: Performed By: #### D ATA1C #### [facility] [address] [place] [address] Dr. Jodi Oglesby Hematocrit (Bld) [Volume fraction] 36.1 % Critically low 42.0-54.0 [facility] Comment on above: Performed By: #### D ATA1C #### [facility] [address] [address] [address] Jodi Oglesby Hemoglobin (Bld) [Mass/Vol] 11.2 g/dL Critically low 14.0-18.0 [facility] Comment on above: Performed By: #### D ATA1C #### [facility] [address] [address] [address] Jodi Oglesby IG # 0.04 10e3/ul Critically high 0.00-0.03 [facility] Comment on above: Performed By: #### D ATA1C #### [facility] [address] [address] [address] Jodi Oglesby IG % 0.4 % Normal 0.0-0.5 [facility] Comment on above: Performed By: #### D ATA1C #### [facility] [address] [place] [address] Dr. Jodi Oglesby LYMPH # 1.8 103/ul Normal 1.2-3.8 [facility] Comment on above: Performed By: #### D ATA1C #### [facility] [address] [address] [address] Jodi Oglesby Lymphocytes/100 WBC (Bld) 17.2 % Critically low 20.5-60.0 [facility] Comment on above: Performed By: #### D ATA1C #### [facility] [address] [address] [address] Jodi Oglesby MANUAL DIFF REQ NO Normal [facility] Comment on above: Performed By: #### D ATA1C #### [facility] [address] [address] [address] Jodi Oglesby MCH (RBC) [Entitic mass] 30.4 pg Normal 25.9-34.0 [facility] Comment on above: Performed By: #### D ATA1C #### [facility] [address] [address] [address] Jodi Oglesby MCHC (RBC) [Mass/Vol] 31.0 g/dL Normal 29.9-35.2 [facility] Comment on above: Performed By: #### D ATA1C #### [facility] [address] [address] [address] Jodi Oglesby MCV (RBC) [Entitic vol] 98.1 fL Critically high 80.0-94.0 [facility] Comment on above: Performed By: #### D ATA1C #### [facility] [address] [address] [address] Jodi Oglesby MONO # 1.0 103/ul Critically high 0.3-0.8 [facility] Comment on above: Performed By: #### D ATA1C #### [facility] [address] [address] [address] Jodi Oglesby Monocytes/100 WBC (Bld) 9.8 % Normal 1.7-12.0 [facility] Comment on above: Performed By: #### D ATA1C #### [facility] [address] [address] [address] Jodi Oglesby NEUT # 7.3 103/ul Critically high 1.4-6.5 [facility] Comment on above: Performed By: #### Chavez ATA1C #### [facility] [address] [address] [address] Jodi Oglesby Neutrophils/100 WBC (Bld) 70.7 % Normal 43.0-75.0 [facility] Comment on above: Performed By: #### D ATA1C #### [facility] [address] [address] [address] Jodi Oglesby Platelet mean volume (Bld) [Entitic vol] 9.1 fL Critically low 9.5-13.5 [facility] Comment on above: Performed By: #### D ATA1C #### [facility] [address] [address] [address] Jodi Oglesby PLT 214 103/ul Normal 150-450 [facility] Comment on above: Performed By: #### D ATA1C #### [facility] [address] [address] [address] Jodi Oglesby RBC 3.68 106/ul Critically low 4.70-6.10 [facility] Comment on above: Performed By: #### D ATA1C #### [facility] [address] [address] [address] Jodi Oglesby WBC 10.3 103/ul Normal 4.0-11.0 [facility] Comment on above: Performed By: #### D ATA1C #### [facility] [address] [address] [address] Jodi Oglesby PROF CHEM 8 (BAS METB)on Anion gap [Moles/Vol] 9.7 mmol/L Normal [facility] Comment on above: Performed By: #### C BC #### [facility] [address] [address] [address] Jodi Oglesby Calcium [Mass/Vol] 8.9 mg/dL Normal 8.5-10.1 [facility] Comment on above: Performed By: #### C BC #### [facility] [address] [place] [address] Dr. Jodi Oglesby Chloride [Moles/Vol] 102 mmol/L Normal 98-107 [facility] Comment on above: Performed By: #### C BC #### [facility] [address] [place] [address] Dr. Jodi Oglesby CO2 [Moles/Vol] 31.0 mmol/L Normal 21.0-32.0 [facility] Comment on above: Performed By: #### C BC #### [facility] [address] [place] [address] Dr. Jodi Oglesby Creatinine [Mass/Vol] 0.85 mg/dL Normal 0.70-1.30 [facility] Comment on above: Performed By: #### C BC #### [facility] [address] [place] [address] Dr. Jodi Oglesby EGFR-AF [place] >60 Normal >=60 [facility] Comment on above: Performed By: #### C BC #### [facility] [address] [address] [address] Jodi Oglesby EGFR-NON AF [place] >60 Normal >=60 [facility] Comment on above: Performed By: #### C BC #### [facility] [address] [address] [address] Jodi Oglesby Glucose [Mass/Vol] 106 mg/dL Normal 74-106 [facility] Comment on above: Performed By: #### C BC #### [facility] [address] [address] [address] Jodi Oglesby Potassium [Moles/Vol] 4.7 mmol/L Normal 3.5-5.1 [facility] Comment on above: Performed By: #### C BC #### [facility] [address] [address] [address] Jodi Oglesby Sodium [Moles/Vol] 138 mmol/L Normal 136-145 [facility] Comment on above: Performed By: #### C BC #### [facility] [address] [place] [address] Dr. Jodi Oglesby Urea nitrogen [Mass/Vol] 14.0 mg/dL Normal 7.0-18.0 [facility] Comment on above: Performed By: #### C BC #### [facility] [address] [place] [address] Dr. Jodi Oglesby Urea nitrogen/Creatinine [Mass ratio] 16.5 mg/mg Normal [facility] Comment on above: Performed By: #### C BC #### [facility] [address] [place] [address] Dr. Jodi Oglesby XR CHEST 2 Von [...] ROCIO RICARDO Date: 2021-12-08 16:20 Normal [facility] Covid-19 PCR (CVDTB)on 11-07 SARS-CoV-2 (COVID-19) RNA JESSIE+probe Ql (Unsp spec) Not detected Normal NOT DETECTED [facility] Comment on above: Result Comment: This test is not yet approved or cleared by the [place] FDA. When there are no FDA-approved or cleared tests available, and other criteria are met, FDA can make tests available under an emergency access mechanism called an Emergency Use Authorization (EUA). The EUA for this test is supported by the [place] of Health and Human Service's (HHS's) declaration [...] SARS-CoV-2. Performed By: #### C VDTB #### [facility] [address] [place] [address] Dr. Jodi Oglesby CBC AUTO DIFFon 11-11-2021 BASO # 0.1 103/ul Normal 0.0-0.1 [facility] Comment on above: Performed By: #### C BC #### [facility] [address] [place] [address] Dr. Jodi Oglesby Basophils/100 WBC (Bld) 0.5 % Normal 0.2-2.0 [facility] Comment on above: Performed By: #### C BC #### [facility] [address] [place] [address] Dr. Jodi Oglesby EO # 0.2 103/ul Normal 0.0-0.7 [facility] Comment on above: Performed By: #### C BC #### [facility] [address] [place] [address] Dr. Jodi Oglesby Eosinophils/100 WBC (Bld) 1.9 % Normal 0.9-7.0 [facility] Comment on above: Performed By: #### C BC #### [facility] [address] [place] [address] Dr. Jodi Oglesby Erythrocyte distribution width (RBC) [Ratio] 13.6 % Normal 11.0-15.0 [facility] Comment on above: Performed By: #### C BC #### [facility] [address] [place] [address] Dr. Jodi Oglesby Hematocrit (Bld) [Volume fraction] 28.6 % Critically low 42.0-54.0 [facility] Comment on above: Performed By: #### C BC #### [facility] [address] [place] [address] Dr. Jodi Oglesby Hemoglobin (Bld) [Mass/Vol] 9.4 g/dL Critically low 14.0-18.0 [facility] Comment on above: Performed By: #### C BC #### [facility] [address] [place] [address] Dr. Jodi Oglesby IG # 0.08 10e3/ul Critically high 0.00-0.03 [facility] Comment on above: Performed By: #### C BC #### [facility] [address] [place] [address] Dr. Jodi Oglesby IG % 0.8 % Critically high 0.0-0.5 [facility] Comment on above: Performed By: #### C BC #### [facility] [address] [place] [address] Dr. Jodi Oglesby LYMPH # 1.3 103/ul Normal 1.2-3.8 [facility] Comment on above: Performed By: #### C BC #### [facility] [address] [place] [address] Dr. Jodi Oglesby Lymphocytes/100 WBC (Bld) 13.0 % Critically low 20.5-60.0 [facility] Comment on above: Performed By: #### C BC #### [facility] [address] [place] [address] Dr. Jodi Oglesby MANUAL DIFF REQ NO Normal [facility] Comment on above: Performed By: #### C BC #### [facility] [address] [place] [address] Dr. Jodi Oglesby MCH (RBC) [Entitic mass] 31.5 pg Normal 25.9-34.0 [facility] Comment on above: Performed By: #### C BC #### [facility] [address] [place] [address] Dr. Jodi Oglesby MCHC (RBC) [Mass/Vol] 32.9 g/dL Normal 29.9-35.2 [facility] Comment on above: Performed By: #### C BC #### [facility] [address] [place] [address] Dr. Jodi Oglesby MCV (RBC) [Entitic vol] 96.0 fL Critically high 80.0-94.0 [facility] Comment on above: Performed By: #### C BC #### [facility] [address] [place] [address] Dr. Jodi Oglesby MONO # 1.1 103/ul Critically high 0.3-0.8 [facility] Comment on above: Performed By: #### C BC #### [facility] [address] [place] [address] Dr. Jodi Oglesby Monocytes/100 WBC (Bld) 10.7 % Normal 1.7-12.0 [facility] Comment on above: Performed By: #### C BC #### [facility] [address] [place] [address] Dr. Jodi Oglesby NEUT # 7.4 103/ul Critically high 1.4-6.5 [facility] Comment on above: Performed By: #### C BC #### [facility] [address] [place] [address] Dr. Jodi Oglesby Neutrophils/100 WBC (Bld) 73.1 % Normal 43.0-75.0 [facility] Comment on above: Performed By: #### C BC #### [facility] [address] [place] [address] Dr. Jodi Oglesby Platelet mean volume (Bld) [Entitic vol] 9.3 fL Critically low 9.5-13.5 [facility] Comment on above: Performed By: #### C BC #### [facility] [address] [address] [address] Jodi Oglesby PLT 288 103/ul Normal 150-450 [facility] Comment on above: Performed By: #### C BC #### [facility] [address] [address] [address] Jodi Oglesby RBC 2.98 106/ul Critically low 4.70-6.10 [facility] Comment on above: Performed By: #### C BC #### [facility] [id number] Jodi Oglesby WBC 10.1 103/ul Normal 4.0-11.0 [facility] Comment on above: Performed By: #### C BC #### [facility] [address] [place] [address] ABD/PELVIS WO CONon [...] TAYO CASTILLO Date: 2021-11-11 03:10 Normal [facility] Covid-19 PCR ([facility])on SARS-CoV-2 (COVID-19) RNA JESSIE+probe Ql (Unsp spec) Not detected Normal NOT DETECTED [facility] Comment on above: Result Comment: When [...] for this test is supported by the Clinical Safety Manager of Health and Human Service's declaration [...] used). Performed By: #### C BC #### [facility] [address] [place] [address] Dr. Jodi Oglesby OCC BLD IMMUNO SCREENon OCCULT BLOOD Negative Normal NEGATIVE [facility] Comment on above: Performed By: #### D ATA1C #### [facility] [address] [place] [address] Dr. Jodi Oglesby PROF 14(COMP METB)on 022 Albumin [Mass/Vol] 3.0 g/dL Critically low 3.4-5.0 [facility] Comment on above: Performed By: #### C MP #### [facility] [address] [place] [address] Dr. Jodi Oglesby Albumin/Globulin [Mass ratio] 0.8 {ratio} Normal [facility] Comment on above: Performed By: #### C MP #### [facility] [address] [place] [address] Dr. Jodi Oglesby ALP [Catalytic activity/Vol] 126 U/L Critically high 46-116 [facility] Comment on above: Performed By: #### C MP #### [facility] [address] [place] [address] Dr. Jodi Oglesby ALT [Catalytic activity/Vol] 22 U/L Normal 16-63 [facility] Comment on above: Performed By: #### C MP #### [facility] [address] [place] [address] Dr. Jodi Oglesby Anion gap [Moles/Vol] 16.7 mmol/L Normal [facility] Comment on above: Performed By: #### C MP #### [facility] [address] [place] [address] Dr. Jodi Oglesby AST [Catalytic activity/Vol] 23 U/L Normal 15-37 [facility] Comment on above: Performed By: #### C MP #### [facility] [address] [place] [address] Dr. Jodi Oglesby Bilirubin [Mass/Vol] 0.6 mg/dL Normal 0.2-1.0 [facility] Comment on above: Performed By: #### C MP #### [facility] [address] [address] [address] Jodi Oglesby Calcium [Mass/Vol] 8.5 mg/dL Normal 8.5-10.1 [facility] Comment on above: Performed By: #### C MP #### [facility] [address] [place] [address] Dr. Jodi Oglesby Chloride [Moles/Vol] 99 mmol/L Normal 98-107 [facility] Comment on above: Performed By: #### C MP #### [facility] [address] [place] [address] Dr. Jodi Oglesby CO2 [Moles/Vol] 27.4 mmol/L Normal 21.0-32.0 [facility] Comment on above: Performed By: #### C MP #### [facility] [address] [place] [address] Dr. Jodi Oglesby Creatinine [Mass/Vol] 0.80 mg/dL Normal 0.70-1.30 [facility] Comment on above: Performed By: #### C MP #### [facility] [address] [place] [address] Dr. Jodi Oglesby EGFR-AF [place]ER >60 Normal >=60 [facility] Comment on above: Performed By: #### C MP #### [facility] [address] [place] [address] Dr. Jodi Oglesby EGFR-NON AF [place] >60 Normal >=60 [facility] Comment on above: Performed By: #### C MP #### [facility] [address] [place] [address] Dr. Jodi Oglesby Globulin (S) [Mass/Vol] 3.9 g/dL Normal [facility] Comment on above: Performed By: #### C MP #### [facility] [address] [address] [address] Jodi Oglesby Glucose [Mass/Vol] 116 mg/dL Critically high 74-106 [facility] Comment on above: Performed By: #### C MP #### [facility] [address] [address] [address] Jodi Oglesby Potassium [Moles/Vol] 4.1 mmol/L Normal 3.5-5.1 [facility] Comment on above: Performed By: #### C MP #### [facility] [address] [address] [address] Jodi Oglesby Protein [Mass/Vol] 6.9 g/dL Normal 6.4-8.2 [facility] Comment on above: Performed By: #### C MP #### [facility] [address] [address] [address] Jodi Oglesby Sodium [Moles/Vol] 129 mmol/L Critically low 136-145 [facility] Comment on above: Performed By: #### C MP #### [facility] [address] [address] [address] Jodi Oglesby Urea nitrogen [Mass/Vol] 15.0 mg/dL Normal 7.0-18.0 [facility] Comment on above: Performed By: #### C MP #### [facility] [address] [address] [address] Jodi Oglesby Urea nitrogen/Creatinine [Mass ratio] 18.8 mg/mg Normal [facility] Comment on above: Performed By: #### C MP #### [facility] [address] [address] [address] Jodi Oglesby PROTIMEon 11-11-2021 INR Coag (PPP) [Relative time] 1.01 {INR} Normal [facility] Comment on above: Performed By: #### P TT, PT #### [facility] [address] [address] [address] Jodi Oglesby INR GUIDELINES SEE BELOW Normal [facility] Comment on above: Result Comment: ESHA RED INR: 2.0 - 3.0 CONDITIONS NOT LISTED BELOW 2.5 - 3.5 FOR PROSTHETIC HEART VALVE REPLACEMENT 2.5 - 3.5 RECURRENT THROMBOSIS Performed By: #### P TT, PT #### [facility] [address] [place] [address] Dr. Jodi Oglesby PT Coag (PPP) [Time] 10.9 s Normal 9.0-11.6 [facility] Comment on above: Performed By: #### P TT, PT #### [facility] [address] [place] [address] Dr. Jodi Oglesby PTTon 11-11-2021 aPTT Coag (Bld) [Time] 25.4 s Normal 22.3-36.2 [facility] Comment on above: Performed By: #### P TT, PT #### [facility] [address] [place] [address] Dr. Jodi Oglesby CBC AUTO DIFFon 10-26-2021 BASO # 0.0 103/ul Normal 0.0-0.1 [facility] Comment on above: Performed By: #### D ATA1C #### [facility] [address] [place] [address] Dr. Jodi Oglesby Basophils/100 WBC (Bld) 0.3 % Normal 0.2-2.0 [facility] Comment on above: Performed By: #### D ATA1C #### [facility] [address] [place] [address] Dr. Jodi Oglesby EO # 0.1 103/ul Normal 0.0-0.7 [facility] Comment on above: Performed By: #### D ATA1C #### [facility] [address] [place] [address] Dr. Jodi Oglesby Eosinophils/100 WBC (Bld) 0.5 % Critically low 0.9-7.0 [facility] Comment on above: Performed By: #### D ATA1C #### [facility] [address] [place] [address] Dr. Jodi Oglesby Erythrocyte distribution width (RBC) [Ratio] 12.4 % Normal 11.0-15.0 [facility] Comment on above: Performed By: #### D ATA1C #### [facility] [address] [address] [address] Jodi Oglesby Hematocrit (Bld) [Volume fraction] 39.5 % Critically low 42.0-54.0 [facility] Comment on above: Performed By: #### D ATA1C #### [facility] [address] [place] [address] Dr. Jodi Oglesby Hemoglobin (Bld) [Mass/Vol] 12.8 g/dL Critically low 14.0-18.0 [facility] Comment on above: Performed By: #### D ATA1C #### [facility] [address] [place] [address] Dr. Jodi Oglesby IG # 0.07 10e3/ul Critically high 0.00-0.03 [facility] Comment on above: Performed By: #### D ATA1C #### [facility] [address] [place] [address] Dr. Jodi Oglesby IG % 0.5 % Normal 0.0-0.5 [facility] Comment on above: Performed By: #### D ATA1C #### [facility] [address] [place] [address] Dr. Jodi Oglesby LYMPH # 0.9 103/ul Critically low 1.2-3.8 [facility] Comment on above: Performed By: #### D ATA1C #### [facility] [address] [place] [address] Dr. Jodi Oglesby Lymphocytes/100 WBC (Bld) 6.3 % Critically low 20.5-60.0 [facility] Comment on above: Performed By: #### D ATA1C #### [facility] [address] [place] [address] Dr. Jodi Oglesby MANUAL DIFF REQ NO Normal [facility] Comment on above: Performed By: #### D ATA1C #### [facility] [address] [place] [address] Dr. Jodi Oglesby MCH (RBC) [Entitic mass] 30.8 pg Normal 25.9-34.0 [facility] Comment on above: Performed By: #### D ATA1C #### [facility] [address] [address] [address] Jodi Oglesby MCHC (RBC) [Mass/Vol] 32.4 g/dL Normal 29.9-35.2 [facility] Comment on above: Performed By: #### D ATA1C #### [facility] [address] [address] [address] Jodi Oglesby MCV (RBC) [Entitic vol] 95.2 fL Critically high 80.0-94.0 [facility] Comment on above: Performed By: #### D ATA1C #### [facility] [address] [address] [address] Jodi Oglesby MONO # 0.9 103/ul Critically high 0.3-0.8 [facility] Comment on above: Performed By: #### D ATA1C #### [facility] [address] [place] [address] Dr. Jodi Oglesby Monocytes/100 WBC (Bld) 6.2 % Normal 1.7-12.0 [facility] Comment on above: Performed By: #### D ATA1C #### [facility] [address] [address] [address] Jodi Oglesby NEUT # 12.8 103/ul Critically high 1.4-6.5 [facility] Comment on above: Performed By: #### D ATA1C #### [facility] [address] [address] [address] Jodi Oglesby Neutrophils/100 WBC (Bld) 86.2 % Critically high 43.0-75.0 [facility] Comment on above: Performed By: #### D ATA1C #### [facility] [address] [address] [address] Jodi Oglesby Platelet mean volume (Bld) [Entitic vol] 9.4 fL Critically low 9.5-13.5 [facility] Comment on above: Performed By: #### D ATA1C #### [facility] [address] [address] [address] Jodi Oglesby PLT 169 103/ul Normal 150-450 [facility] Comment on above: Performed By: #### D ATA1C #### [facility] [address], [place] [address] Dr. oJdi Oglesby RBC 4.15 106/ul Critically low 4.70-6.10 [facility] Comment on above: Performed By: #### D ATA1C #### [facility] [address] [place], [place] [address] Dr. Jodi Oglesby WBC 14.8 103/ul Critically high 4.0-11.0 [facility] Comment on above: Performed By: #### D ATA1C #### [facility] [address] [place], [place] [address] CHEST WO CONon [...] by: NICOLE SIMMS Date: 2021-10-26 17:38 Normal [facility] Covid-19 PCR ([facility])on 10-07 SARS-CoV-2 (COVID-19) RNA JESSIE+probe Ql (Unsp spec) Not detected Normal NOT DETECTED [facility] Comment on above: Result Comment: When [...] for this test is supported by the [place] of Health and Human Service's declaration that [...] used). Performed By: #### D ATA1C #### [facility] [address] [place] [address] Dr. Jodi Oglesby PROF CHEM 8 (BAS METB)on Anion gap [Moles/Vol] 11.7 mmol/L Normal [facility] Comment on above: Performed By: #### C BC #### [facility] [address] [place] [address] Dr. Jodi Oglesby Calcium [Mass/Vol] 9.2 mg/dL Normal 8.5-10.1 [facility] Comment on above: Performed By: #### C BC #### [facility] [address] [place] [address] Dr. Jodi Oglesby Chloride [Moles/Vol] 101 mmol/L Normal 98-107 [facility] Comment on above: Performed By: #### C BC #### [facility] [address] [place] [address] Dr. Jodi Oglesby CO2 [Moles/Vol] 27.6 mmol/L Normal 21.0-32.0 [facility] Comment on above: Performed By: #### C BC #### [facility] [address] [address] [address] Jodi Oglesby Creatinine [Mass/Vol] 0.98 mg/dL Normal 0.70-1.30 [facility] Comment on above: Performed By: #### C BC #### [facility] [address] [place] [address] Dr. Jodi Oglesby EGFR-AF [place]ER >60 Normal >=60 [facility] Comment on above: Performed By: #### C BC #### [facility] [address] [place] [address] Dr. Jodi Oglesby EGFR-NON AF [place] >60 Normal >=60 [facility] Comment on above: Performed By: #### C BC #### [facility] [address] [place] [address] Dr. Jodi Oglesby Glucose [Mass/Vol] 119 mg/dL Critically high 74-106 [facility] Comment on above: Performed By: #### C BC #### [facility] [address] [place] [address] Dr. Jodi Oglesby Potassium [Moles/Vol] 4.3 mmol/L Normal 3.5-5.1 [facility] Comment on above: Performed By: #### C BC #### [facility] [address] [place] [address] Dr. Jodi Oglesby Sodium [Moles/Vol] 136 mmol/L Normal 136-145 [facility] Comment on above: Performed By: #### C BC #### [facility] [address] [place] [address] Dr. Jodi Oglesby Urea nitrogen [Mass/Vol] 15.0 mg/dL Normal 7.0-18.0 [facility] Comment on above: Performed By: #### C BC #### [facility] [address] [place] [address] Dr. Jodi Oglesby Urea nitrogen/Creatinine [Mass ratio] 15.3 mg/mg Normal [facility] Comment on above: Performed By: #### C BC #### [facility] [address] [place] [address] Dr. Jodi Oglesby XR CLAVICLE RTon 10-26-2021 [...] by: JANE ALDANA Date: 2021-10-26 15:37 Normal [facility] XR ELBOW RT MIN 3 VIEWSon [...] DEL CHAKRABORTY Date: 2021-10-26 17:23 Normal [facility] XR HIP RT 2 3V W [...] ALEJANDRA Date: 2021-10-26 15:40 Normal [facility] CARDIAC STRESS/REST INJE CTIONon 10-21-2021 [facility] CARDIAC STRESS/REST INJECTION Patient Name: CHICO BAKER STUDY: MYOCARDIAL PERFUSION STRESS TEST WITH LEXISCAN Performing facility: [facility], [address] [place] [address], [address], [place] [id number] [facility] Provider: Adilene Harrington MD, [facility] PCP: Dr. Jori Dunham Supervising provider: Adilene Harrington MD, [facility] INDICATION: AAA Pre-operative risk assessment for AAA scheduled at [facility] on D. HISTORY: Gender: M; Age: 81 y/o ; Height: 0 cm; Weight: 0 kg. HTN; Carotid disease PAD AAA Denies smoking. COMPARISON: Previous nuclear testing completed at [place]. Previous echo testing completed on 2020 at [facility]. ACCESSION NUMBER(S): [id number]; [id number]; [id number] ORDERING CLINICIAN: JUDAH HARRINGTON TECHNIQUE: ONE DAY [...] Electronically signed by: ALL HUDSON MD Normal [facility] No Panel Informationon 10-21 Normal -[facility] Heart-[address] [place] Work Phone: COVID-19 Positive/NegativeOr dered By: Raul Quan on 10-13-2021 SARS-CoV-2 (COVID-19) N gene JESSIE+probe Ql (Resp) Negative Negative [facility] Comment on above: Testing for SARS-CoV -2 by RT-PCR This test was developed and its performance characteristics determined by [employer]) and validated at the [facility]. This test has not been FDA [...] 10-06-2021 Basophils (Bld) [#/Vol] 0.0 10*3/uL 0.0-0.2 [facility] Basophils/100 WBC Auto (Bld) Ordered By: Raul Quan on 10-06-2021 Basophils/100 WBC (Bld) 0.7 % . [facility] Blood hemoglobin measurement (mass/volume)Ordered By: Raul Quan on 10-06-2021 Hemoglobin (Bld) [Mass/Vol] 13.1 g/dL 13.0-17.0 [facility] Blood leukocytes automated c ount (number/volume)Ordered By: Raul Quan on 10-06-2021 WBC (Bld) [#/Vol] 5.2 10*3/uL 4.5-11.0 [facility] Creatinine and Glomerular fi ltration rate.predicted panel (S/P/Bld)Ordered By: Raul Quan on 10-06-2021 Creatinine [Mass/Vol] 0.98 mg/dL 0.64-1.27 [facility] Eosinophils Auto (Bld) [#/Vo l]Ordered By: Raul Quan on 10-06-2021 Eosinophils (Bld) [#/Vol] 0.1 10*3/uL 0.0-0.45 [facility] Eosinophils/100 WBC Auto (Bl d)Ordered By: Raul Quan on 10-06-2021 Eosinophils/100 WBC (Bld) 1.3 % . [facility] Erythrocyte distribution wid th Auto (RBC) [Ratio]Ordered By: Raul Quan on 10-06-2021 Erythrocyte distribution width (RBC) [Ratio] 13.3 % 12.0-14.8 [facility] Estimated glomerular filtrat ion rate (GFR) non- AmericanOrdered By: Raul Quan on 10-06-2021 GFR/1.73 sq M.predicted among non-blacks MDRD (S/P/Bld) [Vol rate/Area] > 60 mL/Min [facility] Hematocrit Auto (Bld) [Volum e fraction]Ordered By: Rual Quan on 10-06-2021 Hematocrit (Bld) [Volume fraction] 40.4 % 38.8-50.0 [facility] - Hematology and Cell countsOrdered By: Raul Quan on 10-06-2021 Nucleated RBC/100 WBC (Bld) [Ratio] 0.0 % 0-0.5 [facility] Lymphocytes Auto (Bld) [#/Vo l]Ordered By: Raul Quan on 10-06-2021 Lymphocytes (Bld) [#/Vol] 1.0 10*3/uL 1.00-4.8 [facility] Lymphocytes/100 WBC Auto (Bl d)Ordered By: Raul Quan on 10-06-2021 Lymphocytes/100 WBC (Bld) 18.4 % . [facility] MCH Auto (RBC) [Entitic mass ]Ordered By: Raul Quan on 10-06-2021 MCH (RBC) [Entitic mass] 30.9 pg 27.5-35.2 [facility] MCHC Auto (RBC) [Mass/Vol]Or dered By: Raul Quan on 10-06-2021 MCHC (RBC) [Mass/Vol] 32.5 g/dL 32.5-35.6 [facility] MCV Auto (RBC) [Entitic vol] Ordered By: Raul Quan on 10-06-2021 MCV (RBC) [Entitic vol] 95.2 fL 83.5-101 [facility] Monocytes Auto (Bld) [#/Vol] Ordered By: Raul Quan on 10-06-2021 Monocytes (Bld) [#/Vol] 0.6 10*3/uL 0.0-0.8 [facility] Monocytes/100 WBC Auto (Bld) Ordered By: Raul Quan on 10-06-2021 Monocytes/100 WBC (Bld) 12.0 % . [facility] Neutrophils Auto (Bld) [#/Vo l]Ordered By: Raul Quan on 10-06-2021 Neutrophils (Bld) [#/Vol] 3.5 10*3/uL 1.8-7.7 [facility] Neutrophils/100 WBC Auto (Bl d)Ordered By: Raul Quan on 10-06-2021 Neutrophils/100 WBC (Bld) 67.6 % . [facility] No Panel InformationOrdered By: Raul Quan on 10-06-2021 Estimated GFR () > 60 mL/Min [facility] Comment on above: GFR estimated refere nce range: According to KDOQI guidelines, <60 ml/min/1.73m2 is sufficient to diagnose a patient with chronic kidney disease. Pharmacy Creatinine Clearance (Chem N/A [facility] Platelet mean volume Auto (B ld) [Entitic vol]Ordered By: Raul Quan on 10-06-2021 Platelet mean volume (Bld) [Entitic vol] 8.1 fL 6.6-10.1 [facility] Platelets Auto (Bld) [#/Vol] Ordered By: Raul Quan on 10-06-2021 Platelets (Bld) [#/Vol] 185 10*3/uL 150-450 [facility] RBC Auto (Bld) [#/Vol]Ordere d By: Raul Quan on 10-06-2021 RBC (Bld) [#/Vol] 4.25 10*6/uL 3.90-5.60 [facility] Serum or plasma calcium richy urement (mass/volume)Ordered By: Raul Quan on 10-06-2021 Calcium [Mass/Vol] 9.0 mg/dL 8.2-10.2 [facility] Serum or plasma chloride young surement (moles/volume)Ordered By: Raul Quan on 10-06-2021 Chloride [Moles/Vol] 101 mmol/L 95-114 [facility] Serum or plasma glucose richy urement (mass/volume)Ordered By: Raul Quan on 10-06-2021 Glucose [Mass/Vol] 187 mg/dL 70-100 [facility] Comment on above: ADA recommended refe rence range Random Glucose Reference Range is dependent on time and content of last meal. Glucose of more than 200 mg/dL in a nonstressed, ambulatory subject supports the diagnosis of Diabetes Mellitus. Serum or plasma potassium me asurement (moles/volume)Ordered By: Raul Quan on 10-06-2021 Potassium [Moles/Vol] 4.0 mmol/L 3.5-5.1 [facility] Serum or plasma sodium measu rement (moles/volume)Ordered By: Raul Quan on 10-06-2021 Sodium [Moles/Vol] 135 mmol/L 136-146 [facility] Serum or plasma total carbon dioxide measurement (moles/volume)Ordered By: Raul Quan on 10-06-2021 CO2 [Moles/Vol] 25.1 mmol/L 22.0-30.0 [facility] Serum or plasma urea nitroge n measurement (mass/volume)Ordered By: Raul Quan on 10-06-2021 Urea nitrogen [Mass/Vol] 13 mg/dL 9-23 [facility] CBC AUTO DIFFon 09-22-2021 BASO # 0.0 103/ul Normal 0.0-0.1 [facility] Comment on above: Performed By: #### C BC #### [facility] [address] [address] [address] Jodi Oglesby Basophils/100 WBC (Bld) 0.3 % Normal 0.2-2.0 [facility] Comment on above: Performed By: #### C BC #### [facility] [address] [address] [address] Jodi Oglesby EO # 0.1 103/ul Normal 0.0-0.7 [facility] Comment on above: Performed By: #### C BC #### [facility] [address] [address] [address] Jodi Oglesby Eosinophils/100 WBC (Bld) 0.8 % Critically low 0.9-7.0 [facility] Comment on above: Performed By: #### C BC #### [facility] [address] [address] [address] Jodi Oglesby Erythrocyte distribution width (RBC) [Ratio] 12.5 % Normal 11.0-15.0 [facility] Comment on above: Performed By: #### C BC #### [facility] [address] [address] [address] Jodi Oglesby Hematocrit (Bld) [Volume fraction] 43.6 % Normal 42.0-54.0 [facility] Comment on above: Performed By: #### C BC #### [facility] [address] [address] [address] Jodi Oglesby Hemoglobin (Bld) [Mass/Vol] 14.1 g/dL Normal 14.0-18.0 [facility] Comment on above: Performed By: #### C BC #### [facility] [address] [place] [address] Dr. Jodi Oglesby IG # 0.03 10e3/ul Normal 0.00-0.03 [facility] Comment on above: Performed By: #### C BC #### [facility] [address] [place] [address] Dr. Jodi Oglesby IG % 0.3 % Normal 0.0-0.5 [facility] Comment on above: Performed By: #### C BC #### [facility] [address] [place] [address] Dr. Jodi Oglesby LYMPH # 1.5 103/ul Normal 1.2-3.8 [facility] Comment on above: Performed By: #### C BC #### [facility] [address] [place] [address] Dr. Jodi Oglesby Lymphocytes/100 WBC (Bld) 17.2 % Critically low 20.5-60.0 [facility] Comment on above: Performed By: #### C BC #### [facility] [address] [place] [address] Dr. Jodi Oglesby MANUAL DIFF REQ NO Normal [facility] Comment on above: Performed By: #### C BC #### [facility] [address] [place] [address] Dr. Jodi Oglesby MCH (RBC) [Entitic mass] 31.1 pg Normal 25.9-34.0 [facility] Comment on above: Performed By: #### C BC #### [facility] [address] [place] [address] Dr. Jodi Oglesby MCHC (RBC) [Mass/Vol] 32.3 g/dL Normal 29.9-35.2 [facility] Comment on above: Performed By: #### C BC #### [facility] [address] [place] [address] Dr. Jodi Oglesby MCV (RBC) [Entitic vol] 96.0 fL Critically high 80.0-94.0 [facility] Comment on above: Performed By: #### C BC #### [facility] [address] [place], [place] [id number] Dr. Jodi Oglesby MONO # 1.0 103/ul Critically high 0.3-0.8 [facility] Comment on above: Performed By: #### C BC #### [facility] [address] [place] [address] Dr. Jodi Oglesby Monocytes/100 WBC (Bld) 10.8 % Normal 1.7-12.0 [facility] Comment on above: Performed By: #### C BC #### [facility] [address] [place] [address] Dr. Jodi Oglesby NEUT # 6.2 103/ul Normal 1.4-6.5 [facility] Comment on above: Performed By: #### C BC #### [facility] [address] [place] [address] Dr. Jodi Oglesby Neutrophils/100 WBC (Bld) 70.6 % Normal 43.0-75.0 [facility] Comment on above: Performed By: #### C BC #### [facility] [address] [place] [address] Dr. Jodi Oglesby Platelet mean volume (Bld) [Entitic vol] 9.6 fL Normal 9.5-13.5 [facility] Comment on above: Performed By: #### C BC #### [facility] [address] [place] [address] Dr. Jodi Oglesby PLT 206 103/ul Normal 150-450 [facility] Comment on above: Performed By: #### C BC #### [facility] [address] [place] [address] Dr. Jodi Oglesby RBC 4.54 106/ul Critically low 4.70-6.10 [facility] Comment on above: Performed By: #### C BC #### [facility] [address] [place] [address] Dr. Jodi Oglesby WBC 8.8 103/ul Normal 4.0-11.0 [facility] Comment on above: Performed By: #### C BC #### [facility] [address] [place] [address] Dr. Jodi Oglesby PROF CHEM 8 (BAS METB)on Anion gap [Moles/Vol] 9.5 mmol/L Normal [facility] Comment on above: Performed By: #### B MP #### [facility] [address] [address] [address] Jodi Oglesby Calcium [Mass/Vol] 9.4 mg/dL Normal 8.5-10.1 [facility] Comment on above: Performed By: #### B MP #### [facility] [address] [address] [address] Jodi Oglesby Chloride [Moles/Vol] 100 mmol/L Normal 98-107 [facility] Comment on above: Performed By: #### B MP #### [facility] [address] [address] [address] Jodi Oglesby CO2 [Moles/Vol] 33.2 mmol/L Critically high 21.0-32.0 [facility] Comment on above: Performed By: #### B MP #### [facility] [address] [address] [address] Jodi Oglesby Creatinine [Mass/Vol] 0.99 mg/dL Normal 0.70-1.30 [facility] Comment on above: Performed By: #### B MP #### [facility] [address] [place] [address] Dr. Jodi Oglesby EGFR-AF [place]ER >60 Normal >=60 [facility] Comment on above: Performed By: #### B MP #### [facility] [address] [address] [address] Jodi Oglesby EGFR-NON AF [place]ER >60 Normal >=60 [facility] Comment on above: Performed By: #### B MP #### [facility] [address] [address] [address] Jodi Oglesby Glucose [Mass/Vol] 109 mg/dL Critically high 74-106 [facility] Comment on above: Performed By: #### B MP #### [facility] [address] [place] [address] Dr. Jodi Oglesby Potassium [Moles/Vol] 4.7 mmol/L Normal 3.5-5.1 [facility] Comment on above: Performed By: #### B MP #### [facility] [address] [address] [address] Jodi Oglesby Sodium [Moles/Vol] 138 mmol/L Normal 136-145 [facility] Comment on above: Performed By: #### B MP #### [facility] [address] [address] [address] Jodi Oglesby Urea nitrogen [Mass/Vol] 17.0 mg/dL Normal 7.0-18.0 [facility] Comment on above: Performed By: #### B MP #### [facility] [address] [address] [address] Jodi Oglesby Urea nitrogen/Creatinine [Mass ratio] 17.2 mg/mg Normal [facility] Comment on above: Performed By: #### B MP #### [facility] [address] [address] [address] Jodi Oglesby Creatinine (Bld) [Mass/Vol]O rdered By: Tamar Perea on 09-18-2021 Creatinine [Mass/Vol] 0.8 mg/dL 0.6-1.3 [facility] Comment on above: ER/ESD physician is notified/shown all ISTAT results. Critical values may be confirmed by laboratory testing if deemed necessary by ER attending doctor. No Panel InformationOrdered By: Tamar Perea on 09-18-2021 POC Estimated GFR > 60 [facility] Comment on above: GFR estimated refere nce range: According to KDOQI guidelines, <60 ml/min/1.73m2 is sufficient to diagnose a patient with chronic kidney disease. POC Estimated GFR Non- Amer > 60 [facility] CBC AUTO DIFFon 08-12-2021 BASO # 0.0 103/ul Normal 0.0-0.1 [facility] Comment on above: Performed By: #### C BC #### [facility] [address] [address] [address] Jodi Oglesby Basophils/100 WBC (Bld) 0.3 % Normal 0.2-2.0 [facility] Comment on above: Performed By: #### C BC #### [facility] [address] [place] [address] Dr. Jodi Oglesby EO # 0.1 103/ul Normal 0.0-0.7 [facility] Comment on above: Performed By: #### C BC #### [facility] [address] [place] [address] Dr. Jodi Oglesby Eosinophils/100 WBC (Bld) 1.8 % Normal 0.9-7.0 [facility] Comment on above: Performed By: #### C BC #### [facility] [address] [place] [address] Dr. Jodi Oglesby Erythrocyte distribution width (RBC) [Ratio] 12.6 % Normal 11.0-15.0 [facility] Comment on above: Performed By: #### C BC #### [facility] [address] [place] [address] Dr. Jodi Oglesby Hematocrit (Bld) [Volume fraction] 40.9 % Critically low 42.0-54.0 [facility] Comment on above: Performed By: #### C BC #### [facility] [address] [place] [address] Dr. Jodi Oglesby Hemoglobin (Bld) [Mass/Vol] 13.4 g/dL Critically low 14.0-18.0 [facility] Comment on above: Performed By: #### C BC #### [facility] [address] [place] [address] Dr. Jodi Oglesby IG # 0.03 10e3/ul Normal 0.00-0.03 [facility] Comment on above: Performed By: #### C BC #### [facility] [address] [place] [address] Dr. Jodi Oglesby IG % 0.4 % Normal 0.0-0.5 [facility] Comment on above: Performed By: #### C BC #### [facility] [address] [place] [address] Dr. Jodi Oglesby LYMPH # 1.4 103/ul Normal 1.2-3.8 [facility] Comment on above: Performed By: #### C BC #### [facility] [address] [place] [address] Dr. Jodi Oglesby Lymphocytes/100 WBC (Bld) 18.6 % Critically low 20.5-60.0 [facility] Comment on above: Performed By: #### C BC #### [facility] [address] [place] [address] Dr. Jodi Oglesby MCH (RBC) [Entitic mass] 31.5 pg Normal 25.9-34.0 [facility] Comment on above: Performed By: #### C BC #### [facility] [address] [place] [address] Dr. Jodi Oglesby MCHC (RBC) [Mass/Vol] 32.8 g/dL Normal 29.9-35.2 [facility] Comment on above: Performed By: #### C BC #### [facility] [address] [place] [address] Dr. Jodi Oglesby MCV (RBC) [Entitic vol] 96.0 fL Critically high 80.0-94.0 [facility] Comment on above: Performed By: #### C BC #### [facility] [address] [place] [address] Dr. Jodi Oglesby MONO # 0.7 103/ul Normal 0.3-0.8 [facility] Comment on above: Performed By: #### C BC #### [facility] [address] [place] [address] Dr. Jodi Oglesby Monocytes/100 WBC (Bld) 9.7 % Normal 1.7-12.0 [facility] Comment on above: Performed By: #### C BC #### [facility] [address] [place] [address] Dr. Jodi Oglesby NEUT # 5.1 103/ul Normal 1.4-6.5 [facility] Comment on above: Performed By: #### C BC #### [facility] [address] [place] [address] Dr. Jodi Oglesby Neutrophils/100 WBC (Bld) 69.2 % Normal 43.0-75.0 [facility] Comment on above: Performed By: #### C BC #### [facility] [address] [place] [address] Dr. Jodi Oglesby Platelet mean volume (Bld) [Entitic vol] 9.8 fL Normal 9.5-13.5 [facility] Comment on above: Performed By: #### C BC #### [facility] [address] [place] [address] Dr. Jodi Oglesby PLT 195 103/ul Normal 150-450 [facility] Comment on above: Performed By: #### C BC #### [facility] [address] [place] [address] Dr. Jodi Oglesby RBC 4.26 106/ul Critically low 4.70-6.10 [facility] Comment on above: Performed By: #### C BC #### [facility] [address] [place] [address] Dr. Jodi Oglesby WBC 7.4 103/ul Normal 4.0-11.0 [facility] Comment on above: Performed By: #### C BC #### [facility] [address] [place] [address] Dr. Jodi Oglesby ASHLEY - TSHon 08-12-2021 TSH 1.879 uIU/mL Normal 0.358-3.74 0 [facility] Comment on above: Performed By: #### D ATTSH DATBMP #### [facility] [address] [place] [address] Dr. Jodi Oglesby TSH RANGE SEE BELOW Normal [facility] Comment on above: Result Comment: <0.3 4 UIU/ml HYPERTHYROID 0.34-5.60 UIU/ml EUTHYROID >5.60 UIU/ml HYPOTHYROID Performed By: #### D ATTSH, DATBMP #### [facility] [address] [place] [address] Dr. Jodi Olgesby ASHLEY- BMP WITH LIPIDon 2021 Anion gap [Moles/Vol] 11.4 mmol/L Normal [facility] Comment on above: Performed By: #### D ATTSH, DATBMP #### [facility] [address] [place] [address] Dr. Jodi Oglesby Calcium [Mass/Vol] 8.7 mg/dL Normal 8.5-10.1 [facility] Comment on above: Performed By: #### D LULU DATBMP #### [facility] [address] [address] [address] Jodi Oglesby Chloride [Moles/Vol] 105 mmol/L Normal 98-107 [facility] Comment on above: Performed By: #### D LULU DATBMP #### [facility] [address] [address] [address] Jodi Oglesby Cholesterol [Mass/Vol] 113 mg/dL Normal <=200 [facility] Comment on above: Performed By: #### D LULU DATBMP #### [facility] [address] [place] [address] Dr. Jodi Oglesby Cholesterol in HDL [Mass/Vol] 47 mg/dL Normal 40-60 [facility] Comment on above: Performed By: #### D LULU DATBMP #### [facility] [address] [place] [address] Dr. Jodi Oglesby Cholesterol in LDL [Mass/Vol] 58.0 mg/dL Normal [facility] Comment on above: Performed By: #### D LULU DATBMP #### [facility] [address] [place] [address] Dr. Jodi Oglesby CO2 [Moles/Vol] 29.0 mmol/L Normal 21.0-32.0 [facility] Comment on above: Performed By: #### D LULU DATBMP #### [facility] [address] [place] [address] Dr. Jodi Oglesby Creatinine [Mass/Vol] 0.99 mg/dL Normal 0.70-1.30 [facility] Comment on above: Performed By: #### D ATTKENDELL DATBMP #### [facility] [address] [address] [address] Jodi Oglesby EGFR-AF [place]ER >60 Normal >=60 [facility] Comment on above: Performed By: #### D ATTKENDELL DATBMP #### [facility] [address] [address] [address] Jodi Oglesby EGFR-NON AF [place]ER >60 Normal >=60 [facility] Comment on above: Performed By: #### D LULU DATBMP #### [facility] [address] [address] [address] Jodi Oglesby Glucose [Mass/Vol] 116 mg/dL Critically high 74-106 [facility] Comment on above: Performed By: #### D LULU DATBMP #### [facility] [address] [address] [address] Jodi Oglesby HDL NORMAL > or = 60 mg/dl - LO W CARDIOVASCULAR RISK <40 mg/dl - HIGH CARDIOVASCULAR RISK Normal [facility] Comment on above: Performed By: #### D LULU DATBMP #### [facility] [address] [place] [address] Dr. Jodi Oglesby LDL CALC NORMAL SEE BELOW Normal [facility] Comment on above: Result Comment: <100 mg/dl OPTIMAL 100 - 129 mg/dl NEAR OR ABOVE OPTIMAL 130 - 159 mg/dl BORDERLINE HIGH 160 - 189 mg/dl HIGH >190 mg/dl VERY HIGH Performed By: #### D LULU DATBMP #### [facility] [address] [address] [address] Jodi Oglesby Potassium [Moles/Vol] 4.4 mmol/L Normal 3.5-5.1 [facility] Comment on above: Performed By: #### D LULU DATBMP #### [facility] [address] [address] [address] Jodi Oglesby Sodium [Moles/Vol] 141 mmol/L Normal 136-145 [facility] Comment on above: Performed By: #### D LULU DATBMP #### [facility] [address] [place] [address] Dr. Jodi Oglesby Triglyceride [Mass/Vol] 40 mg/dL Normal <=150 [facility] Comment on above: Performed By: #### D LULU DATBMP #### [facility] [address] [place] [address] Dr. Jodi Oglesby Urea nitrogen [Mass/Vol] 16.0 mg/dL Normal 7.0-18.0 [facility] Comment on above: Performed By: #### D LULU DATBMP #### [facility] [address] [address] [address] Jodi Oglesby Urea nitrogen/Creatinine [Mass ratio] 16.2 mg/mg Normal [facility] Comment on above: Performed By: #### Chavez LAWSON DATBMP #### [facility] [address] [address] [address] Jodi Oglesby VLDL CALC 8.0 mg/dL Normal [facility] Comment on above: Performed By: #### VALERIE TOUREP #### [facility] [address] [place] [address] Dr. Jodi Oglesby GLYCOHEMOGLOBIN A1Con 2021 ADA RECOMMENDATION SEE BELOW Normal [facility] Comment on above: Result Comment: ADA RECOMMENDED LIMIT 4.0 - 6.0 ADA THERAPEUTIC TARGET < 7.0 ACTION SUGGESTED > 7.0 Performed By: #### D ATA1C #### [facility] [address] [address] [address] Jodi Oglesby Glucose [Mass/Vol] 131 mg/dL Normal [facility] Comment on above: Performed By: #### D ATA1C #### [facility] [address] [address] [address] Jodi Oglesby HbA1c (Bld) [Mass fraction] 6.2 % Normal 4.5-6.2 [facility] Comment on above: Performed By: #### D ATA1C #### [facility] [address] [address] [address] Jodi Oglesby CNOVon 12-11-2020 CNOV Office Visit ([facility] ) -- CHICO BAKER ([id number]) 1940 M Date Time Provider Department 12/11/20 10:45 AM POWER CATHERINE During your visit today, we recorded the following information about you: Pulse Blood pressure Weight Height 60/minute 122/78 67.6 kg 1.702 m Power Catherine MD 12/11/2020 11:17 AM Signed [facility] OUTPATIENT VISIT DATE December 11, 2020 OUTPATIENT VISIT TYPE EST PRIMARY CARE PHYSICIAN: Shailesh Dunham (Jere) [address] [place] [address] REFERRING PHYSICIAN Power [address]Ctherine [address] [facility], [facility] [id number] CHIEF COMPLAINT: Patient presents with: Established Patient [...] Power Catherine MD Referring Provider: POWER CATHERINE [[id number]] Allergies As of Date: 12/11/2020 Noted Allergy Reaction SHALINI INHIBITORS 05/09/2015 16 - Unknown GADOLINIUM-CONTAINING CONTRAST ME*05/09/2015 16 - Unknown TETANUS VACCINES AND TOXOID 05/16/2015 16 - Unknown Date Reviewed: 12/11/2020 Reviewed by: Harika Menjivar - Fully Assessed Reason for Visit: Established Patient [175] Follow Up [171] 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 - nitroglycerin sublingual (NITROQUICK) 0.3 mg SL tablet (more content not included)... Normal [facility] 10-30-2020 CNPN Telephone ([facility]) -- CHICO BAKER ([id number]) 1940 M Date Time Provider Department 10/30/20 [...] [I71.4] Order(s):US ABD [facility]ORTA [facility] [[id number]] Order #: [id number] FUTURE Prescriptions as of 11/04/2020 - aspirin, [...] Status:Closed by SHERI MOLINA on 11/04/20 Normal [facility] Vital Signs Date Time Vital Sign Value Performing Clinician Facility 11-23-2023 10:05-0400 Body height 170.18 cm DO [employer]aweek Work Phone: [facility] 11-23-2023 10:05-0400 Body mass index (BMI) [Ratio] 20.9 kg/m2 DO Shailesh [employer] Work Phone: [facility] 11-23-2023 10:05-0400 Body weight 60.78 kg DO Shailesh Ball Work Phone: [facility] 11-23-2023 10:05-0400 Diastolic blood pressure 61 mm[Hg] DO Shailesh Ball Work Phone: [facility] 11-23-2023 10:05-0400 Heart rate 67 /min DO Shailesh Ball Work Phone: [facility] 11-23-2023 10:05-0400 Respiratory rate 12 /min DO Shailesh Ball Work Phone: [facility] 11-23-2023 10:05-0400 Systolic blood pressure 98 mm[Hg] DO Shailesh Ball Work Phone: [facility] 11-15-2023 10:21-0400 Body temperature 96.5 [degF] DO Shailesh Ball Work Phone: [facility] 11-15-2023 10:21-0400 Diastolic blood pressure 60 mm[Hg] DO Shailesh Ball Work Phone: [facility] 11-15-2023 10:21-0400 Heart rate 56 /min DO Shailesh Ball Work Phone: [facility] 11-15-2023 10:21-0400 SaO2% (BldA) [Mass fraction] 97 % DO Shailesh Ball Work Phone: [facility] 11-15-2023 10:21-0400 Systolic blood pressure 138 mm[Hg] DO Shailesh Ball Work Phone: [facility] 10-21-2023 09:08-0400 Body height 170.18 cm DO Shailesh Ball Work Phone: [facility] 10-21-2023 09:08-0400 Body mass index (BMI) [Ratio] 20.9 kg/m2 DO Shailesh Ball Work Phone: [facility] 10-21-2023 09:08-0400 Body weight 60.55 kg DO Shailesh Ball Work Phone: [facility] 10-21-2023 09:08-0400 Diastolic blood pressure 58 mm[Hg] DO Shailesh Ball Work Phone: [facility] 10-21-2023 09:08-0400 Heart rate 65 /min DO Shailesh Ball Work Phone: [facility] 10-21-2023 09:08-0400 Respiratory rate 12 /min DO Shailesh Ball Work Phone: [facility] 10-21-2023 09:08-0400 Systolic blood pressure 102 mm[Hg] DO Shailesh Ball Work Phone: [facility] 09-03-2023 08:49-0400 Body height 170.18 cm DO Shailesh Ball Work Phone: [facility] 09-03-2023 08:49-0400 Body mass index (BMI) [Ratio] 21.9 kg/m2 DO Shailesh Ball Work Phone: [facility] 09-03-2023 08:49-0400 Body weight 63.5 kg DO Shailesh Ball Work Phone: [facility] 09-03-2023 08:49-0400 Diastolic blood pressure 58 mm[Hg] DO Shailesh Ball Work Phone: [facility] 09-03-2023 08:49-0400 Heart rate 63 /min DO Shailesh Ball Work Phone: [facility] 09-03-2023 08:49-0400 Respiratory rate 18 /min DO Shailesh Ball Work Phone: [facility] 09-03-2023 08:49-0400 SaO2% (BldA) [Mass fraction] 97 % DO Shailesh Ball Work Phone: [facility] 09-03-2023 08:49-0400 Systolic blood pressure 110 mm[Hg] DO Shailesh Ball Work Phone: [facility] 08-27-2023 08:33-0400 Body height 170.18 cm DO Sahilesh Ball Work Phone: [facility] 08-27-2023 08:33-0400 Body mass index (BMI) [Ratio] 21.7 kg/m2 DO Sahilesh Ball Work Phone: [facility] 08-27-2023 08:33-0400 Body weight 62.76 kg DO Shailesh Ball Work Phone: [facility] 08-27-2023 08:33-0400 Diastolic blood pressure 65 mm[Hg] DO Shailesh Ball Work Phone: [facility] 08-27-2023 08:33-0400 Heart rate 64 /min DO Shailesh Ball Work Phone: [facility] 08-27-2023 08:33-0400 Respiratory rate 12 /min DO Shailesh Ball Work Phone: [facility] 08-27-2023 08:33-0400 Systolic blood pressure 132 mm[Hg] DO Shailesh Ball Work Phone: [facility] 08-19-2023 11:18-0400 Body height 170.18 cm DO Shailesh Ball Work Phone: [facility] 08-19-2023 11:18-0400 Body mass index (BMI) [Ratio] 21.9 kg/m2 DO Shailesh Ball Work Phone: [facility] 08-19-2023 11:180400 Body weight 63.5 kg DO Shailesh Ball Work Phone: [facility] 08-19-2023 11:18-0400 Diastolic blood pressure 56 mm[Hg] DO Shailesh Ball Work Phone: [facility] 08-19-2023 11:18-0400 Heart rate 60 /min DO Shailesh Ball Work Phone: [facility] 08-19-2023 11:18-0400 Respiratory rate 18 /min DO Shailesh Ball Work Phone: [facility] 08-19-2023 11:18-0400 SaO2% (BldA) [Mass fraction] 98 % DO Shailesh Ball Work Phone: [facility] 08-19-2023 11:18-0400 Systolic blood pressure 102 mm[Hg] DO Shailesh Ball Work Phone: [facility] 07-05-2023 10:23-0400 Body height 170.18 cm DO Shailesh Ball Work Phone: [facility] 07-05-2023 10:23-0400 Body mass index (BMI) [Ratio] 21.4 kg/m2 DO Shailesh Ball Work Phone: [facility] 07-05-2023 10:23-0400 Body temperature 97 [degF] DO Shailesh Ball Work Phone: [facility] 07-05-2023 10:23-0400 Body weight 62.14 kg DO Shailesh Ball Work Phone: [facility] 07-05-2023 10:23-0400 Diastolic blood pressure 48 mm[Hg] DO Shailesh Ball Work Phone: [facility] 07-05-2023 10:23-0400 Heart rate 60 /min DO Shailesh Ball Work Phone: [facility] 07-05-2023 10:23-0400 SaO2% (BldA) [Mass fraction] 97 % DO Shailesh Ball Work Phone: [facility] 07-05-2023 10:23-0400 Systolic blood pressure 96 mm[Hg] DO Shailesh Ball Work Phone: [facility] 06-22-2023 10:01-0400 Body height 170.18 cm DO Shailesh Ball Work Phone: [facility] 06-22-2023 10:01-0400 Body mass index (BMI) [Ratio] 21.5 kg/m2 DO Shailesh Ball Work Phone: [facility] 06-22-2023 10:01-0400 Body weight 62.36 kg DO Shailesh Ball Work Phone: [facility] 06-22-2023 10:01-0400 Diastolic blood pressure 69 mm[Hg] DO Shailesh Ball Work Phone: [facility] 06-22-2023 10:01-0400 Heart rate 64 /min DO Shailesh Ball Work Phone: [facility] 06-22-2023 10:01-0400 Respiratory rate 12 /min DO Shailesh Ball Work Phone: [facility] 06-22-2023 10:01-0400 Systolic blood pressure 95 mm[Hg] DO Shailesh Ball Work Phone: [facility] 05-04-2023 11:14-0500 Blood Pressure Location Ivelisse Lue [facility] 05-04-2023 11:14-0500 Diastolic blood pressure 46 mm[Hg] Ivelisse Lue [facility] 05-04-2023 11:14-0500 Heart rate 63 /min Ivelisse Lue [facility] 05-04-2023 11:14-0500 Systolic blood pressure 116 mm[Hg] Ivelisse Hassan [facility] 04-14-2023 10:15-0500 Body height 170.18 cm Shailesh Ball Other [facility] [employer] Other 04-14-2023 10:15-0500 Body mass index (BMI) [Ratio] 21.64 kg/m2 Shailesh Ball Other [facility] [employer] Other 04-14-2023 10:15-0500 Body weight 62.69 kg Shailesh Ball Other [facility] [employer] Other 04-14-2023 10:15-0500 Diastolic blood pressure 58 mm[Hg] Shailesh Ball Other [facility] [employer] Other 04-14-2023 10:15-0500 Respiratory rate 12 /min Shailesh Ball Other [facility] [employer] Other 04-14-2023 10:15-0500 Systolic blood pressure 118 mm[Hg] Shailesh Ball Other [facility] [employer] Other 03-29-2023 10:00-0500 Body height 170.18 cm Shailesh Ball Other [facility] 03-29-2023 10:00-0500 Body mass index (BMI) [Ratio] 21.8 kg/m2 Shailesh Ball Other [facility] [employer] Other 03-29-2023 10:00-0500 Body weight 63.14 kg Shailesh Ball Other [facility] 03-29-2023 10:00-0500 Diastolic blood pressure 74 mm[Hg] Shailesh Ball Other [facility] 03-29-2023 10:00-0500 Respiratory rate 12 /min Shailesh Ball Other [employer] Other 03-29-2023 10:00-0500 Systolic blood pressure 132 mm[Hg] Shailesh Ball Other [facility] 01-13-2023 08:49-0500 Blood Pressure Location Ivelisse Lue [facility] 01-13-2023 08:49-0500 Diastolic blood pressure 74 mm[Hg] Ivelisse Lue [facility] 01-13-2023 08:49-0500 Heart rate 68 /min Ivelisse Lue [facility] 01-13-2023 08:49-0500 Respiratory rate 16 /min Ivelisse Lue [facility] 01-13-2023 08:49-0500 Systolic blood pressure 156 mm[Hg] Ivelisse Lue [facility] 11-10-2022 10:30-0400 Body height 170.18 cm Raul Quan Other [employer] Other 11-10-2022 10:30-0400 Body mass index (BMI) [Ratio] 20.99 kg/m2 Raul Quan Other [employer] Other 11-10-2022 10:30-0400 Body temperature 97.8 [degF] Raul Quan Other [employer] Other 11-10-2022 10:30-0400 Body weight 60.78 kg Raul Quan Other [employer] Other 11-10-2022 10:30-0400 Diastolic blood pressure 64 mm[Hg] Raul Dovernakul Other [employer] Other 11-10-2022 10:30-0400 SaO2% (BldA) [Mass fraction] 98 % Raul Avelina Other [employer] Other 11-10-2022 10:30-0400 Systolic blood pressure 110 mm[Hg] Raul Avelina Other [employer] Other 10-07-2022 08:49-0400 Blood Pressure Location Ivelisse Lue [facility] 10-07-2022 08:49-0400 Diastolic blood pressure 74 mm[Hg] Ivelisse Lue [facility] 10-07-2022 08:49-0400 Heart rate 75 /min Ivelisse Lue [facility] 10-07-2022 08:49-0400 Systolic blood pressure 139 mm[Hg] Ivelisse Lue [facility] 08-04-2022 11:15-0400 Body height 170.18 cm Raul Avelina Other [employer] Other 08-04-2022 11:15-0400 Body mass index (BMI) [Ratio] 21.77 kg/m2 Raul Avelina Other [employer] Other 08-04-2022 11:15-0400 Body temperature 97.8 [degF] Raul Quan Other [employer] Other 08-04-2022 11:15-0400 Body weight 63.05 kg Raul Quan Other [facility] [employer] Other 08-04-2022 11:15-0400 Diastolic blood pressure 68 mm[Hg] Raul Osorior Other [employer] Other 08-04-2022 11:15-0400 SaO2% (BldA) [Mass fraction] 97 % Raul Quan Other [facility] [employer] Other 08-04-2022 11:15-0400 Systolic blood pressure 108 mm[Hg] Raul Lawrencerer Other [facility] [employer] Other 07-09-2022 08:00-0400 Body temperature 98.6 [degF] DO Shailesh Ball Work Phone: [facility] 07-09-2022 08:00-0400 Diastolic blood pressure 72 mm[Hg] DO Shailesh Ball Work Phone: [facility] 07-09-2022 08:00-0400 Heart rate 69 /min DO Shailesh Ball Work Phone: [facility] 07-09-2022 08:00-0400 Respiratory rate 16 /min DO Shailesh Ball Work Phone: [facility] 07-09-2022 08:00-0400 SaO2% (BldA) [Mass fraction] 97 % DO Shailesh Ball Work Phone: [facility] 07-09-2022 08:00-0400 Systolic blood pressure 154 mm[Hg] DO Shailesh Ball Work Phone: [facility] 07-09-2022 06:00-0400 Body weight 65.8 kg DO Shailesh Ball Work Phone: [facility] 07-08-2022 10:52-0400 Inhaled oxygen flow rate 8 L/min DO Shailesh Ball Work Phone: [facility] 07-08-2022 08:34-0400 Body height 167.64 cm DO Shailesh Ball Work Phone: [facility] 07-08-2022 08:34-0400 Body mass index (BMI) [Ratio] 22.7 kg/m2 DO Shailesh Ball Work Phone: [facility] 06-24-2022 09:27-0400 Blood Pressure Location Ivelisse Lue [facility] 06-24-2022 09:27-0400 Diastolic blood pressure 75 mm[Hg] Vielisse Lue [facility] 06-24-2022 09:27-0400 Heart rate 66 /min Ivelisse Lue [facility] 06-24-2022 09:27-0400 Respiratory rate 16 /min Ivelisse Lue [facility] 06-24-2022 09:27-0400 Systolic blood pressure 120 mm[Hg] Ivelisse Lue [facility] 05-21-2022 09:30-0400 Body height 170.18 cm Shailesh Ball Other [facility] [employer] Other 05-21-2022 09:30-0400 Body mass index (BMI) [Ratio] 21.8 kg/m2 Shailesh Ball Other [facility] [employer] Other 05-21-2022 09:30-0400 Body weight 63.14 kg Shailesh Ball Other [facility] [employer] Other 05-21-2022 09:30-0400 Diastolic blood pressure 73 mm[Hg] Shailesh Ball Other [employer] Other 05-21-2022 09:30-0400 Respiratory rate 12 /min Shailesh Ball Other [employer] Other 05-21-2022 09:30-0400 Systolic blood pressure 121 mm[Hg] Shailesh Ball Other [employer] Other 05-19-2022 11:00-0400 Body height 170.18 cm Tamar Martinezmoy Other [employer] Other 05-19-2022 11:00-0400 Body mass index (BMI) [Ratio] 22.02 kg/m2 Tamar Martinezmoy Other [employer] Other 05-19-2022 11:00-0400 Body temperature 97.5 [degF] Tamar Martinezmoy Other [employer] Other 05-19-2022 11:00-0400 Body weight 63.78 kg Tamar Martinezmoy Other [employer] Other 05-19-2022 11:00-0400 Diastolic blood pressure 76 mm[Hg] Tamar Perea Other [employer] Other 05-19-2022 11:00-0400 SaO2% (BldA) [Mass fraction] 98 % Tamar Martinezmoy Other [employer] Other 05-19-2022 11:00-0400 Systolic blood pressure 148 mm[Hg] Tamar Perea Other [employer] Other 04-15-2022 08:57-0500 Blood Pressure Location Ivelisse Mo [facility] 04-15-2022 08:57-0500 Diastolic blood pressure 78 mm[Hg] Ivelisse Lue [facility] 04-15-2022 08:57-0500 Heart rate 68 /min Ivelisse Lue [facility] 04-15-2022 08:57-0500 Respiratory rate 16 /min Ivelisse Lue [facility] 04-15-2022 08:57-0500 Systolic blood pressure 122 mm[Hg] Ivelisse Lue [facility] 03-10-2022 11:30-0500 Body height 170.18 cm Raul Quan Other [employer] Other 03-10-2022 11:30-0500 Body mass index (BMI) [Ratio] 21.2 kg/m2 Raul Quan Other [employer] Other 03-10-2022 11:30-0500 Body temperature 97.8 [degF] Raul Quan Other [employer] Other 03-10-2022 11:30-0500 Body weight 61.42 kg Raul Quan Other [employer] Other 03-10-2022 11:30-0500 Diastolic blood pressure 64 mm[Hg] Raul Quan Other [employer] Other 03-10-2022 11:30-0500 SaO2% (BldA) [Mass fraction] 98 % Raul Quan Other [facility] [employer] Other 03-10-2022 11:30-0500 Systolic blood pressure 108 mm[Hg] Raul Quan Other [facility] [employer] Other 02-25-2022 11:09-0500 Blood Pressure Location ADALGISA ARASH [facility] 02-25-2022 11:09-0500 Diastolic blood pressure 63 mm[Hg] ADALGISA ARASH [facility] 02-25-2022 11:09-0500 Heart rate 64 /min ADALGISA ARASH [facility] 02-25-2022 11:09-0500 Systolic blood pressure 105 mm[Hg] ADALGISA ARASH [facility] 02-18-2022 14:12-0500 Blood Pressure Location ADALGISA ARASH [facility] 02-18-2022 14:12-0500 Diastolic blood pressure 83 mm[Hg] ADALGISA ARASH [facility] 02-18-2022 14:12-0500 Heart rate 70 /min ADALGISA ARASH [facility] 02-18-2022 14:12-0500 Systolic blood pressure 142 mm[Hg] ADALGISA ARASH [facility] 02-11-2022 08:42-0500 Blood Pressure Location Ivelisse Hassan [facility] 02-11-2022 08:42-0500 Diastolic blood pressure 73 mm[Hg] Ivelisse Lue [facility] 02-11-2022 08:42-0500 Heart rate 68 /min Ivelisse Lue [facility] 02-11-2022 08:42-0500 Respiratory rate 16 /min Ivelisse Lue [facility] 02-11-2022 08:42-0500 Systolic blood pressure 150 mm[Hg] Ivelisse Lue [facility] 02-05-2022 08:00-0500 Body temperature 99.1 [degF] DO Shailesh Ball Work Phone: [facility] 02-05-2022 08:00-0500 Diastolic blood pressure 76 mm[Hg] DO Shailesh Ball Work Phone: [facility] 02-05-2022 08:00-0500 Heart rate 78 /min DO Shailesh Ball Work Phone: [facility] 02-05-2022 08:00-0500 Respiratory rate 16 /min DO Shailesh Ball Work Phone: [facility] 02-05-2022 08:00-0500 SaO2% (BldA) [Mass fraction] 95 % DO Shailesh Ball Work Phone: [facility] 02-05-2022 08:00-0500 Systolic blood pressure 168 mm[Hg] DO Shailesh Ball Work Phone: [facility] 02-05-2022 03:21-0500 Body weight 64.1 kg DO Shailesh Ball Work Phone: [facility] 02-04-2022 11:43-0500 Inhaled oxygen flow rate 6 L/min DO Shailesh Ball Work Phone: [facility] 02-04-2022 09:31-0500 Body height 167.64 cm DO Shailesh Ball Work Phone: [facility] 02-04-2022 09:31-0500 Body mass index (BMI) [Ratio] 23.3 kg/m2 DO Shailesh Ball Work Phone: [facility] 01-20-2022 12:30-0500 Body height 170.18 cm Raul Buehrer Other [employer] Other 01-20-2022 12:30-0500 Body mass index (BMI) [Ratio] 21.92 kg/m2 Raul Buehrer Other [employer] Other 01-20-2022 12:30-0500 Body temperature 97.7 [degF] Raul Buehrer Other [employer] Other 01-20-2022 12:30-0500 Body weight 63.5 kg Raul Buehrer Other [employer] Other 01-20-2022 12:30-0500 Diastolic blood pressure 64 mm[Hg] Raul Buehrer Other [employer] Other 01-20-2022 12:30-0500 SaO2% (BldA) [Mass fraction] 99 % Raul Buehrer Other [employer] Other 01-20-2022 12:30-0500 Systolic blood pressure 116 mm[Hg] Raul Buehrer Other [employer] Other 01-05-2022 11:15-0400 Body height 170.18 cm Raul Buehrer Other [employer] Other 01-05-2022 11:15-0400 Body mass index (BMI) [Ratio] 21.92 kg/m2 Raul Lawrencerejakub Other [employer] Other 01-05-2022 11:15-0400 Body temperature 96 [degF] Raul Lawrencerer Other [employer] Other 01-05-2022 11:15-0400 Body weight 63.5 kg Raul Quan Other [employer] Other 01-05-2022 11:15-0400 Diastolic blood pressure 58 mm[Hg] Raul Lawrencerer Other [employer] Other 01-05-2022 11:15-0400 SaO2% (BldA) [Mass fraction] 99 % Raul Quan Other [employer] Other 01-05-2022 11:15-0400 Systolic blood pressure 100 mm[Hg] Raul Lawrencerer Other [employer] Other 11-24-2021 12:30-0400 Body height 170.18 cm Tamar Martinezmoy Other [employer] Other 11-24-2021 12:30-0400 Body mass index (BMI) [Ratio] 21.92 kg/m2 Tamar Martinezmoy Other [employer] Other 11-24-2021 12:30-0400 Body temperature 97.5 [degF] Tamar Brit Other [employer] Other 11-24-2021 12:30-0400 Body weight 63.5 kg Tamar Perea Other [employer] Other 11-24-2021 12:30-0400 Diastolic blood pressure 50 mm[Hg] Tamar Perea Other [facility] [employer] Other 11-24-2021 12:30-0400 SaO2% (BldA) [Mass fraction] 98 % Tamar Perea Other [facility] [employer] Other 11-24-2021 12:30-0400 Systolic blood pressure 96 mm[Hg] Tamar Perea Other [facility] [employer] Other 10-21-2021 07:30-0400 50 1 Shailesh E Ball Work Phone: [facility] [address] [place] Work Phone: Comment on above: [id number] 10-15-2021 08:27-0400 Body height 167.64 cm DO Shailesh Ball Work Phone: [facility] 10-15-2021 08:27-0400 Body temperature 97.7 [degF] DO Shailesh Ball Work Phone: [facility] 10-15-2021 08:27-0400 Body weight 66 kg DO Shailesh Ball Work Phone: [facility] 10-15-2021 08:27-0400 Diastolic blood pressure 75 mm[Hg] DO Shailesh Ball Work Phone: [facility] 10-15-2021 08:27-0400 Heart rate 73 /min DO Shailesh Ball Work Phone: [facility] 10-15-2021 08:27-0400 Respiratory rate 16 /min DO Shailesh Ball Work Phone: [facility] 10-15-2021 08:27-0400 SaO2% (BldA) [Mass fraction] 97 % DO Shailesh Ball Work Phone: [facility] 10-15-2021 08:27-0400 Systolic blood pressure 143 mm[Hg] DO Shailesh Dunham Work Phone: [facility] 09-30-2021 13:30-0400 Body height 170.18 cm Tamar Martinezmoy Other [employer] Other 09-30-2021 13:30-0400 Body mass index (BMI) [Ratio] 24.27 kg/m2 Tamar Martinezjerardoo Other [employer] Other 09-30-2021 13:30-0400 Body temperature 97.4 [degF] Tamar Brit Other [employer] Other 09-30-2021 13:30-0400 Body weight 70.31 kg Tamar Martinezmoy Other [employer] Other 09-30-2021 13:30-0400 Diastolic blood pressure 70 mm[Hg] Tamar Martinezmoy Other [employer] Other 09-30-2021 13:30-0400 SaO2% (BldA) [Mass fraction] 98 % Tamar Martinezmoy Other [employer] Other 09-30-2021 13:30-0400 Systolic blood pressure 140 mm[Hg] Tamar Perea Other [employer] Other 09-15-2021 11:00-0400 Body height 170.18 cm Tamar Martinezmoy Other [employer] Other 09-15-2021 11:00-0400 Body mass index (BMI) [Ratio] 24.27 kg/m2 Tamar Martinezjerardoo Other [employer] Other 09-15-2021 11:00-0400 Body temperature 96.4 [degF] Tamar Perea Other [employer] Other 09-15-2021 11:00-0400 Body weight 70.31 kg Tamar Perea Other [employer] Other 09-15-2021 11:00-0400 Diastolic blood pressure 72 mm[Hg] Tamar Perea Other [employer] Other 09-15-2021 11:00-0400 SaO2% (BldA) [Mass fraction] 98 % Tamar Perea Other [employer] Other 09-15-2021 11:00-0400 Systolic blood pressure 138 mm[Hg] Tamar Perea Other [employer] Other 07-28-2021 10:45-0400 Body height 170.18 cm Raul Quan Other [employer] Other 07-28-2021 10:45-0400 Body mass index (BMI) [Ratio] 24.27 kg/m2 Raul Quan Other [employer] Other 07-28-2021 10:45-0400 Body temperature 96.6 [degF] Raul Quan Other [employer] Other 07-28-2021 10:45-0400 Body weight 70.31 kg Raul Quan Other [employer] Other 07-28-2021 10:45-0400 Diastolic blood pressure 78 mm[Hg] Raul Quan Other [facility] [employer] Other 07-28-2021 10:45-0400 SaO2% (BldA) [Mass fraction] 98 % Raul Quan Other [facility] [employer] Other 07-28-2021 10:45-0400 Systolic blood pressure 190 mm[Hg] Raul Quan Other [facility] [employer] Other Encounters Encounter Date Encounter Type Care Provider Facility Start: 11-23-2023 End: 11-23-2023 ambulatory DO Shailesh Dunham [facility] Phone[facility] Work Phone: Start: 11-23-2023 End: 11-23-2023 Patient encounter procedure DO Shailesh Ball Work Phone: [facility] Work Phone: Start: 11-15-2023 End: 11-15-2023 ambulatory DO Shailesh Dunham Work Phone: [facility] Work Phone: Start: 11-15-2023 End: 11-15-2023 Patient encounter procedure DO Shailesh Ball Work Phone: [facility] Work Phone: Start: 11-09-2023 Non-patient / Non-visit DO Ryder raines Ball Work Phone: [facility] Work Phone: Start: 10-27-2023 End: 10-27-2023 ambulatory AMBER BRYANT [facility] Start: 10-26-2023 Non-patient / Non-visit DO Ryder raines Ball Work Phone: [facility] Work Phone: Start: 10-21-2023 End: 10-21-2023 ambulatory DO Shailesh Ball Work Phone: [facility] Work Phone: Start: 10-21-2023 End: 10-21-2023 Patient encounter procedure DO Shailesh Ball Work Phone: [facility] Work Phone: Start: 10-18-2023 Non-patient / Non-visit DO Ryder raines Ball Work Phone: [facility] Work Phone: Start: 10-17-2023 Non-patient / Non-visit DO Ryder raines Ball Work Phone: [facility] Work Phone: Start: 10-16-2023 End: 10-17-2023 Non-patient / Non-visit DO Shailesh Ball Work Phone: [facility] Work Phone: Start: 10-16-2023 Non-patient / Non-visit DO Ryder raines Ball Work Phone: [facility] Work Phone: Start: 10-15-2023 End: 10-17-2023 Non-patient / Non-visit DO Shailesh Dunham Work Phone: [facility] Work Phone: Start: 10-14-2023 End: 10-17-2023 Non-patient / Non-visit DO Shailesh Ball Work Phone: [facility] Work Phone: Start: 10-14-2023 Non-patient / Non-visit DO Ryder raines Ball Work Phone: [facility] Work Phone: Start: 10-12-2023 End: 10-13-2023 Evaluation and management of inpatient AMBER BRYANT [facility] Start: 10-06-2023 End: 10-06-2023 ambulatory AMBER Melgoza [facility] Start: 10-06-2023 End: 10-06-2023 ambulatory AMBER J [facility] Start: 09-17-2023 ambulatory AMBER BRYANT [facility] Start: 09-03-2023 End: 09-03-2023 ambulatory DO Shailesh Ball Work Phone: [facility] Work Phone: Start: 09-03-2023 End: 09-03-2023 Patient encounter procedure DO Shailesh Ball Work Phone: [facility] Work Phone: Start: 08-31-2023 End: 08-31-2023 Patient encounter procedure DO Shailesh Ball Work Phone: [facility] Work Phone: Start: 08-31-2023 End: 08-31-2023 ambulatory DO Shailesh Ball Work Phone: [facility] Work Phone: Start: 08-27-2023 End: 08-27-2023 ambulatory DO Shailesh Ball Work Phone: [facility] Work Phone: Start: 08-27-2023 End: 08-27-2023 Patient encounter procedure DO Shailesh Ball Work Phone: [facility] Work Phone: Start: 08-19-2023 End: 08-19-2023 ambulatory DO Shailesh Ball Work Phone: [facility] Work Phone: Start: 08-19-2023 End: 08-19-2023 Patient encounter procedure DO Shailesh Ball Work Phone: [facility] Work Phone: Start: 08-18-2023 End: 08-18-2023 ambulatory AMBER Melgoza [facility] Start: 08-18-2023 End: 08-18-2023 ambulatory AMBER Melgoza [facility] Start: 08-17-2023 End: 08-17-2023 ambulatory MARIA EUGENIA BERRY [facility] Start: 08-13-2023 End: 08-13-2023 ambulatory MARIA EUGENIA BERRY [facility] Start: 08-04-2023 End: 08-04-2023 ambulatory MARIA EUGENIA BERRY [facility] Start: 07-27-2023 End: 07-27-2023 ambulatory CLIFTON CORREA Not Available Start: 07-05-2023 End: 07-05-2023 ambulatory DO Shailesh Ball Work Phone: [facility] Work Phone: Start: 07-05-2023 End: 07-05-2023 Patient encounter procedure DO Shailesh Ball Work Phone: [facility] V[facility] Work Phone: Start: 06-22-2023 End: 06-22-2023 ambulatory DO Shailesh Ball Work Phone: [facility] Work Phone: Start: 06-22-2023 End: 06-22-2023 Patient encounter procedure DO Shailesh Ball Work Phone: [facility] Work Phone: Start: 06-16-2023 End: 06-16-2023 Patient encounter procedure DO Shailesh Ball Work Phone: [facility] [place] Work Phone: Start: 06-16-2023 End: 06-16-2023 ambulatory DO Shailesh Ball Work Phone: [facility] Work Phone: Start: 05-04-2023 End: 05-05-2023 ambulatory Ivelisse Hassan Facility:[facility] Start: 05-04-2023 End: 05-04-2023 Lab Drop off Ivelisse Hassan [facility] Start: 05-04-2023 End: 05-04-2023 Patient encounter procedure Ivelisse Hassan [facility] Start: 04-28-2023 End: 04-29-2023 ambulatory Ivelisse Hassan Facility::[id number] Start: 04-26-2023 Non-patient / Non-visit DO Ryder raines Ball Work Phone: [facility] Work Phone: Start: 04-20-2023 Non-patient / Non-visit DO Ryder raines Ball Work Phone: [facility] Work Phone: Start: 04-20-2023 Non-patient / Non-visit DO Ryder Dunham Work Phone: [facility] Work Phone: Start: 04-14-2023 End: 04-14-2023 ambulatory Shailesh Dunham Other [employer] Other Start: 04-14-2023 Encounter for other preprocedural examination Shailesh Enrico [facility] Start: 04-14-2023 Office outpatient vi sit 15 minutes Shailesh Dunham [facility] Start: 04-08-2023 End: 04-08-2023 ambulatory Shailesh Dunham Other [employer] Other Start: 04-08-2023 Telephone encounter Shailesh AYON [facility] Start: 04-05-2023 End: 04-05-2023 ambulatory Shailesh Dunham Other [employer] Other Start: 04-05-2023 Telephone encounter Shailesh AYON [facility] Start: 04-04-2023 End: 04-04-2023 ambulatory Raul Quan Other [employer] Other Start: 04-04-2023 Telephone encounter Raul Quan [facility] Start: 03-29-2023 End: 03-29-2023 ambulatory Shailesh Dunham Other [employer] Other Start: 03-29-2023 Transitional care ellen sarkar srvc 14 day discharge Shailesh Dunham [facility] Start: 03-29-2023 End: 03-29-2023 Patient encounter procedure DO Shailesh Dunham Work Phone: [facility]- Start: 03-25-2023 End: 03-25-2023 ambulatory Raul Quan Other [employer] Other Start: 03-25-2023 Telephone encounter Raul Quan [facility] Start: 03-24-2023 End: 03-25-2023 ambulatory Ivelisse Hassan Facility:[id number] Start: 01-13-2023 End: 01-14-2023 ambulatory Ivelissenaseem Hymane Facility:[facility] Start: 01-13-2023 End: 01-13-2023 Patient encounter procedure Ivelisse Hassan [facility] Start: 11-10-2022 Office outpatient vi sit 25 minutes Raul Osoriojakub [facility] V[facility] Start: 11-10-2022 End: 11-10-2022 ambulatory DO Shailesh Dunham Work Phone: [employer] Other Start: 11-10-2022 End: 11-10-2022 Patient encounter procedure DO Shailesh Dunham Work Phone: [facility] Start: 10-07-2022 End: 10-08-2022 ambulatory Ivelissenaseem Hymane Facility:[facility] [place] Start: 10-07-2022 End: 10-07-2022 Patient encounter procedure Ivelisse Hassan [facility] Start: 08-04-2022 End: 08-04-2022 ambulatory Raul Quan Other [employer] Other Start: 08-04-2022 Postop follow up vis it related to original px Raul Quan [facility] Start: 07-28-2022 End: 07-29-2022 ambulatory Ivelisse Hassan Facility:[facility] Start: 07-14-2022 ambulatory Ivelisse Hassan Facility: [id number] Start: 07-09-2022 End: 07-09-2022 ambulatory Shailesh Dunham Other [employer] Other Start: 07-09-2022 Telephone encounter Shailesh Dunham [facility] Start: 07-08-2022 End: 07-08-2022 ambulatory Shailesh Dunham Other [employer] Other Start: 07-08-2022 Telephone encounter [facility]ail[facility] [facility] Start: 07-08-2022 End: 07-09-2022 Evaluation and management of inpatient DO Shailesh Dunham Work Phone: [facility] [place] [facility] Work Phone: Start: 07-01-2022 End: 07-01-2022 ambulatory DO Shailesh Dunham Work Phone: [facility] Work Phone: Start: 07-01-2022 End: 07-01-2022 Patient encounter procedure DO Shailesh Dunham Work Phone: [facility] Work Phone: Start: 06-24-2022 End: 06-25-2022 ambulatory Ivelisse Hassan Facility:[facility] Start: 06-24-2022 End: 06-24-2022 Patient encounter procedure Ivelisse Hassan [facility] Start: 05-21-2022 End: 05-21-2022 ambulatory Shailesh Dunham Other [employer] Other Start: 05-21-2022 Patient encounter procedure Shailesh Dunham [facility] Start: 05-19-2022 End: 05-19-2022 ambulatory Tamar Martinezjerardokhalida Other [employer] Other Start: 05-19-2022 Follow-up encounter Tamar [facility] Start: 05-13-2022 End: 05-13-2022 ambulatory Raul Quan Other [employer] Other Start: 05-13-2022 Telephone encounter Raul Quan [facility] Start: 05-11-2022 End: 05-11-2022 ambulatory DO Shailesh Dunham Work Phone: [facility] Work Phone: Start: 05-11-2022 End: 05-11-2022 Patient encounter procedure DO Shailesh Dunham Work Phone: [facility]-CT Scan [facility] [place] Work Phone: Start: 04-23-2022 End: 04-23-2022 ambulatory Raul Quan Other [employer] Other Start: 04-23-2022 Telephone encounter Raul Quan [facility] Vascular Surgery Start: 04-15-2022 End: 04-15-2022 Lab Drop off Ivelisse Hassan [facility] Start: 04-15-2022 End: 02-08-2023 Patient encounter procedure Ivelisse Hassan [facility] Start: 04-14-2022 End: 04-14-2022 ambulatory Shailesh Dunham Other [employer] Other Start: 04-14-2022 Telephone encounter Shailesh Dunham [facility] Start: 03-10-2022 End: 03-10-2022 ambulatory Raul Quan Other [employer] Other Start: 03-10-2022 Office outpatient vi sit 25 minutes Raul Quan [facility] Vascular Surgery Start: 02-25-2022 End: 02-25-2022 Patient encounter procedure ADALGISASTEPHAN BUSHRY [facility] Start: 02-18-2022 End: 02-18-2022 Patient encounter procedure ADALGISA E ARASH [facility] Start: 02-11-2022 End: 02-11-2022 Lab Drop off Ivelisse Hassan [facility] Start: 02-11-2022 End: 02-11-2022 Patient encounter procedure Ivelisse Hassan [facility] Start: 02-10-2022 End: 02-11-2022 ambulatory IVELISSE HASSAN . Facility: Start: 02-07-2022 Encounter for other preprocedural examination DR RAUL QUAN [facility] Start: 02-07-2022 Encounter for preprocedural laboratory examination DR RAUL QUAN [facility] Start: 02-04-2022 End: 02-05-2022 Evaluation and management of inpatient DO Shailesh Dunham Work Phone: [facility] Start: 02-02-2022 End: 02-03-[address] RAUL QUAN Facility:[facility] Start: 02-02-2022 End: 02-03-2022 Encounter for other preprocedural examination DR RAUL QUAN Facility:[facility] Start: 01-20-2022 Office outpatient vi sit 25 minutes Raul Quan [facility] Vascular Surgery Start: 01-20-2022 End: 01-20-2022 ambulatory DO Shailesh Dunham Work Phone: [employer] Other Start: 01-20-2022 End: 01-20-2022 Patient encounter procedure DO Shailesh Dunham Work Phone: [facility]-Ultrasound [facility] Start: 01-05-2022 End: 01-05-2022 ambulatory Raul Quan Other [employer] Other Start: 01-05-2022 Office outpatient vi sit 25 minutes Raul Quan [facility] Vascular Surgery Start: 12-08-2021 End: 12-09-[address] SHAILESH DUNHAM Facility:[facility] Start: 12-02-2021 End: 12-02-[address] SHAILESH DUNHAM Facility:[facility] Start: 11-24-2021 End: 11-24-2021 ambulatory Tamar Perea Other [employer] Other Start: 11-24-2021 Patient encounter procedure Tamar Perea [facility] Vascular Surgery Start: 11-11-2021 End: 11-11-[address] SHAILESH DUNHAM Facility:[facility] Start: 10-26-2021 End: 10-26-[address] SHAILESH DUNHAM Facility:[facility] Start: 10-21-2021 Patient encounter procedure Shailesh Dunham Work Phone: [facility] [address] [place] Work Phone: Start: 10-16-2021 Telephone encounter Judah Vivas MD Work Phone: -[facility] 250 DO Work Phone: Start: 10-15-2021 End: 10-15-2021 Evaluation and management of inpatient DO Shailesh Dunham Work Phone: [facility] Start: 10-13-2021 End: 10-13-2021 Patient encounter procedure DO Shailesh Dunham Work Phone: [facility]-Pre-Surgical Testing Start: 10-06-2021 End: 10-06-2021 Patient encounter procedure DO Shailesh Dunham Work Phone: [facility]-Pre-Surgical Testing Start: 09-30-2021 End: 09-30-2021 ambulatory Tamar Perea Other [employer] Other Start: 09-30-2021 Encounter for other preprocedural examination Tamar Perea [facility] Start: 09-30-2021 Follow-up encounter Tamar [facility] Start: 09-22-2021 End: 09-23-[address] SHAILESH DUNHAM Facility:[facility] Start: 09-18-2021 End: 09-18-2021 Patient encounter procedure DO Shailesh Dunham Work Phone: [facility]-CT Scan Main [place] Start: 09-15-2021 End: 09-15-2021 ambulatory Tamar Perea Other [employer] Other Start: 09-15-2021 Follow-up encounter Tamar [facility] Start: 08-27-2021 End: 08-27-2021 Patient encounter procedure DO Shailesh Dunham Work Phone: [facility]-Ultrasound [facility] Start: 08-12-2021 End: 08-13-[address] KURTZ LISTED REQUEST Facility:[facility] Start: 07-28-2021 End: 07-28-2021 ambulatory Raul Quan Other [employer] Other Start: 07-28-2021 Office outpatient ne w 45 minutes Raul Quan [facility] Vascular Surgery Start: 06-13-2020 End: 06-13-2020 Patient encounter procedure Lisandra Sher Work Phone: [facility] Work Phone: Patient encounter status Judah Harrington MD Work Phone: [facility] [address] DO Work Phone: Procedures Date Procedure Procedure Detail Performing Clinician Start: 11-15-2023 Doppler ultrasonography of bilateral carotid arteries DO Shailesh [employer] Work Phone: Start: 06-16-2023 Computed tomography of abdomen and pelvis with contrast DO Shailesh [employer] Work Phone: Start: 05-04-2023 Cystoscopic removal of ureteric stent Ivelisse Hassan Start: 04-28-2023 Cystoscopic insertion of ureteric stent Ivelisse Hassan Start: 11-10-2022 Doppler ultrasonography of bilateral carotid arteries DO Shailesh [employer] Work Phone: Start: 07-28-2022 Cystourethroscopy with dilation of urethral stricture Ivelissenaseem Hassan Start: 07-08-2022 Insertion of carotid artery stent DO Ryder raines [employer] Phone: Start: 05-11-2022 Computed tomography angiography of abdominal and/or pelvic blood vessel DO [employer] Work Phone: Start: 05-11-2022 CT angiography of head DO Shailesh [employer] Phone: Start: 05-11-2022 CT angiography of neck vessels DO Josué in [employer] Work Phone: Start: 02-10-2022 PSA screening IVELISSE HASSAN . Comment on above: Performed By: #### DATA1C #### [facility] [address] [place] [address] Dr. 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 Ivelisse Hassan Start: 02-04-2022 Endovascular repair of abdominal aortic aneurysm DO Shailesh [employer] Work Phone: Start: 01-20-2022 Doppler ultrasonography of bilateral carotid arteries DO Shailesh [employer] Work Phone: Start: 09-18-2021 Computed tomography angiography of abdominal and/or pelvic blood vessel DO Shailesh [employer] Work Phone: Start: 08-27-2021 US scan of aorta DO Shailesh [employer] Work Phone: Start: 08-27-2021 Doppler ultrasonography of bilateral carotid arteries DO Shailesh [employer] Work Phone: Start: 06-13-2020 Imm. administration COVID19 [employer] Work Phone: Start: 06-13-2020 SARS-CoV-2 vaccine, 0.5ml [employer] Work Phone: Start: 10-18-2019 Transurethral prostatectomy Ivelisse Lue Start: 04-06-2019 Cystoscope, device (physical object) Ivelisse Lue Start: 10-06-2016 Colonoscopy Ivelisse Lue Comment on above: 2010 Arthroscopy of knee Ivelisse Eynni e Catheterization of left heart Ivelisse Lue Esophagogastroduodenoscopy K athy Lue Plan of Treatment Date Care Activity Detail Author Start: 09-01-2023 ambulatory Ambulatory Facility:[facility] Start: 08-19-2023 [facility] Start: 07-09-2022 [facility] Start: 07-08-2022 Hospital admission [facility] Start: 07-08-2022 Patient referral to dietitian [facility] Start: 02-05-2022 [facility] Start: 02-04-2022 [facility] Start: 02-04-2022 Hospital admission [facility] Start: 10-21-2021 STRESS NUC, Provider: SAL ZUNIGA NUCLEAR 01,[id number], Status: Pen, Time: 7:30 AM STRESS NUC, Provider: SAL ARREDONDOI NUCLEAR 01,[id number], Status: Pen, Time: 7:30 AM [facility] 250 DO Work Phone: Start: 10-15-2021 [facility] Work Phone: Start: 10-15-2021 OR Percutaneous EVAR AAA (Not Applicable) OR Percutaneous EVAR AAA (Not Applicable) [facility] Start: 10-15-2021 End: 10-15-2021 Evaluation and management of inpatient AAA (abdominal aortic aneurysm) [facility]-[address] [place] [address] Surgical Start: 10-13-2021 End: 10-13-2021 Patient encounter procedure Departed Clinical [facility] Testing Comprehensive metabo lic 2000 panel - Serum or Plasma [facility] Holter monitor study [facility] Patient Education [facility] Work Phone: Patient referral [facility] Work Phone: US Gallbladder [facility] Heart limited [facility] Heart Transthoracic [facility] Heart Transthoracic [facility] Thoracic and abdo sebastian aorta [facility] Thoracic and abdo sebastian aorta [facility] Thoracic and abdo sebastian aorta [facility] US.doppler Carotid arteries - bilateral [facility] US.doppler Carotid arteries - [facility] US.doppler Carotid arteries - [facility] Immunizations Immunization Date Immunization Notes Care Provider David holloway 06-13-2020 [employer]ney [employer] Rodney COVID 19 Vaccine [facility] Comment on above: Note: Patient tolera shyann well. No signs or symptoms of adverse reactions. Patient waited a minimum of 15 minutes. NEGATED: Highlighted row has not occurred!01-13-2023 influenza virus vaccine, unspecified formulation Ivelisse Hassan [facility] [place] Payers Date Payer Category Payer Self-pay [id number] 2020 Unknown [id number] 1959 Self-pay [id number] 1959 Unknown [id number] [id number] 1959 Unknown [id number] 1959 Unknown [id number] 1942 Unknown [id number] 2.16.84 0.1.437328.3.579.2.593 1942 Unknown [id number] 2.16.84 0.1.118825.3.579.2.593 1942 Unknown [id number] 2.16.84 0.1.601505.3.579.2.593 1942 Unknown [id number] 2.16.84 0.1.043950.3.579.2.593 1942 Unknown [id number] 2.16.84 0.1.125699.3.579.2.593 1942 Unknown [id number] 2.16.84 0.1.347527.3.579.2.593 1942 Unknown [id number] 2.16.84 0.1.644582.3.579.2.593 1942 Unknown [id number] 2.16.8 40.1.885184.3.579.2.727 1942 Unknown [id number] 2.16.8 40.1.703274.3.579.2.727 1942 Unknown [id number] 2.16.8 40.1.287407.3.579.2.727 1942 Unknown [id number] 2.16.8 40.1.430836.3.579.2.727 1942 Unknown [id number] 2.16.8 40.1.108357.3.579.2.727 1942 Unknown [id number] 2.16.8 40.1.361126.3.579.2.727 1942 Unknown [id number] 2.16.8 40.1.659001.3.579.2.72 1942 Unknown [id number] 2.16.8 40.1.233019.3.579.2.727 1942 Unknown [id number] 2.16.8 40.1.636732.3.579.2.727 1942 Unknown [id number] 2.16.84 0.1.256194.3.579.2.1259 Unknown Unknown [facility] [id number] Unknown [id number] 2.16.84 0.1.095217.3.579.2.593 Unknown [id number] 2.16.8 40.1.115018.3.579.2.531 Unknown [id number] 2.16.8 40.1.127381.3.579.2.531 Unknown [id number] 2.16.8 40.1.911205.3.579.2.531 Unknown [id number] 2.16.8 40.1.938624.3.579.2.531 Social History Date Type Detail Facility Tobacco smoking status Unknown i f ever smoked [facility] Work Phone: Start: 03-08-1955 End: 03-08-1996 Sex Assigned At [facility] Start: 10-15-2021 End: 08-19-2023 Tobacco smoking status NHIS Ex-smoker (finding) [facility] Start: 1940 Sex Assigned At Male F [facility] Tobacco smoking status Never [facility] Medical Equipment Procedure Code Equipment Code Equipment Origin al Text Equipment Identifier Dates Transcarotid artery revascularization (TCAR) Bare-metal carotid artery stent ()[id number] FDA Start: 07-08-2022 Transcarotid artery revascularization (TCAR) Bare-metal carotid artery stent ()[id number] FDA Start: 07-08-2022 Percutaneous endovascular repair of abdominal aortic aneurysm (AAA) Abdominal aorta endovascular stent-graft ()[id number] FDA Start: 02-04-2022 Percutaneous endovascular repair of abdominal aortic aneurysm (AAA) Abdominal aorta endovascular stent-graft ()[id number] FDA Start: 02-04-2022 Percutaneous endovascular repair of abdominal aortic aneurysm (AAA) Abdominal aorta endovascular stent-graft ()[id number] FDA Start: 02-04-2022 Goals Date Patient Goal Desired Activity /State Functional Status Date Assessment Result Facility 05-04-2023 Functional Status N/A [facility] 01-13-2023 Functional Status N/A [facility] 10-07-2022 Functional Status N/A [facility] 07-09-2022 Functional status Patient is Pro gressing Toward Baseline [facility] Work Phone: 06-24-2022 Functional Status N/A [facility] 04-15-2022 Functional Status N/A [facility] 02-25-2022 Functional Status N/A [facility] 02-18-2022 Functional Status N/A [facility] 02-11-2022 Functional Status N/A [facility] 02-05-2022 Functional status Patient at Baseline [facility] Work Phone: 10-15-2021 Functional status Patient at Baseline [facility] Work Phone: Mental Status Date Assessment Result Facility 07-09-2022 Cognitive function Cognitive Sta tus Patient is Progressing Toward Baseline [facility] Work Phone: 02-05-2022 Cognitive function Cognitive Sta tus Patient at Baseline [facility] Work Phone: 10-15-2021 Cognitive function Cognitive Sta tus Patient at Baseline [facility] Work Phone: Clinical Notes 04-18-2020 to 10-27-2023 Note Date & Type Note Facility 10-27-2023 Note SURGERY POST-OPERATI VE NOTE Amber Bryant MD, MHPE, FACS, FSSO Hepatobiliary, pancreatic, biliary surgery Surgical Oncology General and minimally invasive surgery Reason for visit: Gallbladder polyp, status post laparoscopic robot-assisted cholecystectomy with partial liver resection PCP: Shailesh Dunham DO Chief Complaint: Gallbladder polyp History of Present Illness: Chico Baker is a 83 y.o. male who presents following laparoscopic robot-assisted cholecystectomy with partial liver resection on 10/12/2023. At the time of surgery, intraoperative ultrasound demonstrated the polyp on the liver surface of the gallbladder fundus, which appeared to be invading into the liver. An en bloc cholecystectomy and partial segment 4 5 resection was undertaken. The cystic duct margin was negative for malignancy. Gross inspection of the polyp demonstrated an obstructed sinus that contained multiple pigmented stones. Frozen section histology did not demonstrate evidence of malignancy. Postoperatively, he was admitted to the stepdown unit and had overnight telemetry monitoring. He was discharged home the following day. He then represented 3 days postop with atrial fibrillation rapid response to [facility]. He spontaneously converted and anticoagulation was begun. He is currently on Eliquis 2.5 mg p.o. twice daily. At this visit he is doing better. He is currently on Holter monitoring for a total of 3 days. He has had no nausea, vomiting, or fever. Physical Exam Vital signs: Blood pressure 156/55, pulse 56, temperature 36.3 ???C (97.4 ???F), temperature source Oral, height 1.676 m (5' 6 ), weight 61.2 kg (135 lb), SpO2 100 %. Admission Weight: Weight: 61.2 kg (135 lb) BMI: Body mass index is 21.79 kg/m???. General: no acute distress. HENT: Sclera anicteric Abdomen: Soft, not distended, no tenderness, no mass, all laparoscopic incisions are healing well Neuro: alert and oriented. PATHOLOGY: Final Diagnosis A. Cystic duct margin, resection: - Segment of cystic duct with denuded surface epithelium. - Negative for carcinoma. B. Gallbladder, cholecystectomy: - Chronic cholecystitis with cholelithiasis. - Focal cystic dilatation of gallbladder and possible sinus tract/fistula, seen grossly. - Negative for carcinoma. Imaging None new Lab Review Lab Results Component Value Date WBC 14.01 (H) 10/13/2023 HGB 9.7 (L) 10/13/2023 HCT 29.4 (L) 10/13/2023 MCV 93.6 10/13/2023 PLT 141 (L) 10/13/2023 Lab Results Component Value Date CALCIUM 8.3 (L) 10/13/2023 NA 134 (L) 10/13/2023 K 4.4 10/13/2023 CO2 22 10/13/2023 CL 104 10/13/2023 BUN 17 10/13/2023 CREATININE 0.74 10/13/2023 No results found for: AMYLASE No results found for: LIPASE Lab Results Component Value Date ALT 52 10/13/2023 AST 60 (H) 10/13/2023 ALKPHOS 89 10/13/2023 Lab Results Component Value Date INR 1.17 (H) 10/13/2023 INR 1.19 (H) 10/12/2023 INR 1.03 08/18/2023 Assessment: Chico Baker is a 83 y.o.male who is s/p laparoscopic robot-assisted cholecystectomy and partial liver resection for a large gallbladder polyp, complicated by rapid response A-fib on postop day 3. His cardiac status is now stable.. There is no evidence of malignancy on the final pathology. Plan: Follow-up with cardiology and primary care physician Return to clinic in 2 months with a hepatic panel. I spent 20 minutes in xmpi-lv-knem evaluation, discussion, and counseling with the patient regarding the treatment plan and recommendations. Amber Bryant MD [facility] 10-13-2023 Note 10/13/23 1028 Admission Assessment Questions [...] Not Interested ([facility] in [place]) Does the patient have a high risk case manager assigned to them through their [...] to return home no needs at discharge. [facility] 10-13-2023 Note HPB Surgery Attendin g Patient seen and examined. [...] all home medications Start aspirin 81 mg /9 Continue to use left arm sling in the setting of a clavicular fracture (3 weeks ago) Follow-up with me in clinic in approximately 2 weeks Amber Bryant MD [facility] 10-12-2023 Note Patient: Chico hidalgo Procedure Summary Date: 10/12/23 Room / Location: [facility] OPERATING ROOM 13 / [facility] Operating Room Anesthesia Start: 948 Anesthesia Stop: [...] 12 10/12/23 1741 SpO2 97 % 10/12/23 174 Vitals shown include unvalidated device data. Anesthesia Post Evaluation Patient location during evaluation: PACU Patient participation: complete - patient participated Level of consciousness: awake Pain score: 1 Airway patency: patent Cardiovascular status: acceptable Respiratory status: acceptable and nasal airway Hydration status: acceptable Patient is hemodynamically stable and is able to be discharged from PACU per anesthesia protocol. No notable events documented. [facility] 10-12-2023 Note Patient: Chico hidalgo Procedure Summary Date: 10/12/23 Room / Location: [facility] OPERATING ROOM 13 / [facility] Operating Room Anesthesia Start: 948 Anesthesia Stop: [...] and follow verbal commands throughout transport process [facility] 10-12-2023 Note Arterial Line: Date/Time: 10/12/2023 11:49 [...] procedure well with no complications. Staffing Performed: resident/MOTOR COACH CHAUFFEUR/CAA and anesthesiologist Anesthesiologist: Kathi Lyons MD Resident/MOTOR COACH CHAUFFEUR: Marcial Alvarado MD Performed by: Marcial Alvarado MD Authorized by: Kathi Lyons MD [facility] 10-12-2023 Note Airway Date/Time: 10/12/2023 10:03 AM Urgency: elective Airway not difficult General Information and Staff Patient location during procedure: OR Resident/MOTOR COACH CHAUFFEUR/CAA: Marcial Alvarado MD Performed: resident/MOTOR COACH CHAUFFEUR/CAA Learner assisted: Michell Castillo MS4 Indications and [...] 21 Number of attempts at approach: 1 [facility] 10-06-2023 Note SURGERY FOLLOWUP NOT E Amber Bryant MD, PE, FACS, FSSO Hepatobiliary, pancreatic, biliary surgery Surgical [...] ???F), temperature so (more content not included)... 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 Additional Equipment Requests [facility] 08-18-2023 Note HEPATOBILIARY & PANC REAS SURGERY [...] Smokeless tobacco: Never (more content not included)... [facility] 08-13-2023 Note The patient is a ple [...] fall with right femoral ORIF while playing [employer] Abdominal aortic stent Left carotid artery stent [...] of a gallbladder malignancy. Will send to [place] to see if the actual film from [...] bed and lymph node evaluation as well. [facility] 05-04-2023 Hospital Discharge instructions Patient Education 05/04/2023 [...] include: ?8 oz (237 mL) of milk, mrfnonh-tmunzbgpmrky-gpbsa milk, and calcium-fortifiedfruit juice. Calcium-fortified means that [...] ?Spinach (cooked), rhubarb, beets, sweet potatoes, and Nigerien chard. ?Peanuts. ?Potato chips, cayman islander fries, and baked potatoes with skin on. ?Nuts and nut products. ?Chocolate. If you regularly take a diuretic medicine, make sure to eat at least 1 or 2 servings of fruits or vegetables that are high in potassium each day. These include: ?Avocado. ?Banana. ?[place], prune, carrot, or tomato juice. ?Baked potato. [...] magnesium, fish oil, or vitamin B6. Take bshh-mby-sjknevy and prescription medicines only as told by [...] Casseroles. Pizza. Lasagna. Frozen meals. Potato chips. Croatian fries. The items listed above may not [...] provider. Document Revised: 06/04/2022 Document Reviewed: 06/04/2022 [employer] Patient Education 2022 [employer]. Follow Up Care 04/29/2023 08:42:17 With:Mo LEIJA, AKILAH Smith, URO Address: When:Within 4 Month(s) Comments:w/KEDAR [facility] [place] 04-14-2023 Evaluation note Encounter Date Diagnosis Assessment [...] this time and surgery could be scheduled. [employer] Other 02-07-2024 Evaluation note* Encounter Date Diagnosis [...] control to proceed with his next procedure. [employer] Other 02-01-2024 Evaluation note* Encounter Date Diagnosis Assessment Notes Treatment Notes Treatment Clinical Notes Apr, Primary hypertension (ICD-10 - I10) [employer] Other 01-29-2024 Evaluation note* Encounter Date Diagnosis Assessment Notes Treatment Notes Treatment Clinical Notes Mar, Primary hypertension (ICD-10 - I10) [employer] Other 01-28-2024 Evaluation note* Encounter Date Diagnosis Assessment Notes Treatment Notes Treatment Clinical Notes Mar, Primary hypertension (ICD-10 - I10) [employer] Other 01-22-2024 Evaluation note* Encounter Date Diagnosis [...] has resolved INstructed on increasing fluids [employer] Other 11-08-2023 Hospital Discharge instructions Patient Education [...] urethra. Follow these instructions at home: Take jefp-yiw-ohqglii and prescription medicines only as told by [...] provider. Document Revised: 09/10/2021 Document Reviewed: 09/10/2021 [employer] Patient Education 2022 [employer]. Follow Up Care 10/07/2022 09:26:45 With:Mo LEIJA, AKILAH Smith, URO Address: When: Unknown [facility] 09-05-2023 Evaluation note* Encounter Date [...] in the office with a CT scan. [employer] Other 08-02-2023 Hospital Discharge instructions Patient Education [...] urethra. Follow these instructions at home: Take znbr-ifa-axsztvk and prescription medicines only as told by [...] provider. Document Revised: 09/10/2021 Document Reviewed: 09/10/2021 [employer] Patient Education 2022 [employer]. Follow Up Care 07/28/2022 10:29:31 With:Mo LEIJA, AKILAH Smith, URO Address: When:Within 3 Day(s) [facility] [employer] 05-30-2023 Evaluation note* Encounter Date Diagnosis Assessment [...] a couple of weeks. These have resolved. [employer] Other 05-04-2023 Discharge summary Author Raul Quan [facility] July 09, 2022 12:08pm Note Date/Time July 09, 2022 8:07am [facility] [address] [place], [place] [id number] Discharge Summary Signed Patient: Chico Baker MR#: [id number] : 1940 Acct:[id number] Age/Sex: 82 / M Adm Date: 3 Loc: 4C Room: 8B7066-[address]: Raul Quan MD Copies to: [...] midline, neck is supple, no JVD. Bilateral ems manager strength is equal. He has a little [...] signed by MD Raul Quan> 07/09/22 [address] [facility] Work Phone: 1(432) 582-431005-03-2023 History and physical note Author Raul Quan [facility] July 08, 2022 11:06am Note Date/Time July 08, 2022 11:06a m [facility] [address] [place] [address] Vascular Surgery H&P Signed Patient: Chico Baker MR#: [id number] : 1940 Acct:[id number] Age/Sex: 82 / M Adm Date: 3 Loc: Room: [address] [place] [address] Type: ADM IN Attending Dr: Raul Quan [...] signed by MD Raul Quan> 07/08/22 [address] [facility] Work Phone: 1(210) 443-272704-19-2023 Hospital Discharge instructions Patient Education 06/24/2022 09:42:41 [...] Follow these instructions at home: Medicines Take jojn-ouw-yopourm and prescription medicines only as told by [...] or the blood stops without treatment. Take igur-mkc-fonnhud and prescription medicines only as told by your health care provider. Drink enough fluid to keep your urine pale yellow. This information is not intended to replace advice given to you by your health care provider. Make sure you discuss any questions you have with your health care provider. Document Revised: 10/23/2020 Document Reviewed: 10/23/2020 [employer] Patient Education 2022 [employer]. 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 Walk daily Inspect feet daily for cuts [employer] Other 03-14-2023 Evaluation note* Encounter Date Diagnosis [...] left TCAR procedure once he returns from [place] at the end of June beginning of [...] agree with plan, and denies any questions. [employer] Other 03-08-2023 Evaluation note* Encounter Date Diagnosis Assessment Notes Treatment Notes Treatment Clinical Notes May, Carotid stenosis, bilateral (ICD-10 - I65.23) CTA: < 50% right, 80% left [employer] Other 03-08-2023 Evaluation note* Encounter Date Diagnosis Assessment Notes Treatment Notes Treatment Clinical Notes May, Carotid stenosis, bilateral (ICD-10 - I65.23) CTA: < 50% right, 70% left - 05/2022 [employer] Other 02-08-2023 Hospital Discharge instructions Patient Education [...] prostate. Follow these instructions at home: Take vfmr-olg-rupcimb and prescription medicines only as told by [...] 02/19/2001 Document Revised: 05/07/2018 Document Reviewed: 11/12/2016 [employer] Patient Education 2020 [employer]. Follow Up Care 02/11/2022 10:55:52 With:Mo LEIJA, AKILAH Smith, URO Address: When: Unknown [facility] 02-07-2023 Evaluation note* Encounter Date Diagnosis Assessment Notes Treatment Notes Treatment Clinical Notes Apr, Primary hypertension (ICD-10 - I10) [employer] Other 01-03-2023 Evaluation note* Encounter Date Diagnosis [...] to perform simultaneously to minimize contrast exposure. [employer] Other 12-21-2022 Hospital Discharge instructions Patient Education 02/25/2022 12:02:33 Rash, Adult, Qjlj-qf-Llsr Rash, Adult A rash is a change [...] with your condition: Medicine Take or apply ukry-ezb-jdxleur and prescription medicines only as told by [...] the rash from spreading. Take or apply bars-mqz-doddapp and prescription medicines only as told by [...] 08/10/2008 Document Revised: 06/16/2019 Document Reviewed: 09/26/2018 [employer] Patient Education 2019 [employer] Follow Up Care 02/18/2022 14:33:21 With:Ivelisse Hassan Address:Unknown When: Unknown Comments:Appointment has already been scheduled [facility] 12-14-2022 Hospital Discharge instructions Patient Education [...] including vitamins, herbs, eye drops, creams, and csvl-amp-gvetzzi medicines. Any problems you or family members [...] provider tells you to take them. Taking zyaa-ceq-ihyqnxt medicines, vitamins, herbs, and supplements. Eating and [...] 02/22/2006 Document Revised: 06/14/2019 Document Reviewed: 11/23/2018 [employer] Patient Education 2019 [employer]. Follow Up Care 02/17/2022 16:33:06 With:ARASH BUCHANAN, ADALGISA Ellis, URL Address: [address] [place] [address] [phone] When:02/25/2022 [facility] 12-07-2022 Hospital Discharge instructions Patient [...] prostate. Follow these instructions at home: Take euea-ofc-lxfcmzs and prescription medicines only as told by [...] 02/19/2001 Document Revised: 05/07/2018 Document Reviewed: 11/12/2016 [employer] Patient Education 2019 [employer]. Follow Up Care 01/28/2021 10:15:04 With:Mo LEIJA, AKILAH Smith, URO Address: When:6 weeks [facility] 12-01-2022 Discharge summary Author Raul Quan [facility] February 05, 2022 10:08am Note Date/Time February 05, 2022 7 :52am [facility] [address] [place] [address] Discharge Summary Signed Patient: Chico Baker MR#: [id number] : 1940 Acct:[id number] Age/Sex: 81 / M Adm Date: 2 Loc: Room: [address] [place] [address]: Raul Quan MD Copies to: [...] % (Auto) 69.5, Lymph % (Auto) 14.4, Comal % (Auto) 14.8, Eos % (Auto) 0.7, Baso % (Auto) 0.6, Nucleat RBC Rel Count 0.1, Neut # (Auto) 7.1, Lymph # (Auto) 1.5, Comal # (Auto) 1.5 H, Eos # (Auto) 0.1, Baso # (Auto) 0.1 02/04/22 08:25: Corrected WBC 9.3, Uncorrected WBC Count 9.3, RBC 4.10, Hgb 12.4L, Hct 37.5 L, MCV 91.5, MCH 30.2, MCHC 33.0, RDW 13.7, Plt Count 198, MPV 8.5, Neut % (Auto) 70.1, Lymph % (Auto) 16.4, Comal % (Auto) 12.0, Eos % (Auto) 0.9, Baso % (Auto) 0.6, Nucleat RBC Rel Count 0.0, Neut # (Auto) 6.5, Lymph # (Auto) 1.5, Comal # (Auto) 1.1 H, Eos # (Auto) [...] MOUTH EVERYDAY IN THE EVENING Follow Up: aRul Quan MD [Active Staff] - 03/10/22 10:30 am (Please call the office to reschedule if this time does not work for you. Thank you.) Documented By: Tamar Perea APRN 02/05/22 0 749 Signed By: <Electronically signed by TOMMIE Perea> 02/05/22 0753 <Electronically signed by MD Raul Quan> 02/05/22 1008 [facility] Work Phone: 1(911) 439-648811-15-2022 Evaluation note* Encounter Date Diagnosis Assessment Notes [...] we will evaluate him for left TCAR. [employer] Other 10-31-2022 Evaluation note* Encounter Date Diagnosis [...] complete and CT confirms candidacy for TCAR [employer] Other 09-19-2022 Evaluation note* Encounter Date Diagnosis Assessment Notes Treatment Notes Treatment Clinical Notes Nov, AAA (abdominal aortic aneurysm) without rupture (ICD-10 - I71.4) This patient is still recovering from his recent orthopedic procedures. He continues with physical therapy and although he is getting stronger, he remains quite fatigued and weak yet. He has an upcoming appointment with his bread supervisor for preoperative risk assessment and stratification this next week. We will give him a few more weeks of physical therapy and have him back in a month or so to reschedule his AAA. He did tell me that he had some abdominal pain while in the care home facility and was taken to the [facility] where a CT of the abdomen was obtained. We will get these studies pushed over for review and comparison. He denies any abdominal pain today and tells me his appetite is pretty good. He knows to call us in the meantime with any issues. [employer] Other 07-26-2022 Evaluation note* Encounter Date Diagnosis [...] agrees with this plan, denies any questions. [employer] Other 07-11-2022 Evaluation note* Encounter Date Diagnosis [...] agrees with this plan, and denies questions. [employer] Other 07-11-2022 Evaluation note* Encounter Date Diagnosis [...] agrees with this plan, and denies questions. [employer] Other 05-23-2022 Evaluation note* Encounter Date Diagnosis [...] returns we will get baseline ankle-brachial indices. [employer] Other 10-06-2021 NoteHNO ID: [id number] Author: Power Catherine MD Service: ? Author Type: Physician Type: Progress Notes Filed: 12/11/2020 11:17 AM Note Text: [facility] OUTPATIENT VISIT DATE December 11, 2020 OUTPATIENT VISIT TYPE EST PRIMARY CARE PHYSICIAN: Shailesh Dunham (Jere) [address] [place] [address] REFERRING PHYSICIAN Power Catherine [address] [facility] [id number] CHIEF COMPLAINT: Patient presents with: Established Patient [...] up. Continue statin therapy. ? Power Catherine, [facility]02-11-2021 NotePatient Outreach (COVAMN) CHICO BAKER Abad ([id number]) 1940 Date Time Provider Department 04/18/20 KIMBERLEY REHMAN During your visit today, we recorded the following information about you: Allergies As of Date: 04/18/2020 Noted Allergy Reaction SHALINI INHIBITORS 05/09/2015 16 - Unknown GADOLINIUM-CONTAINING CONTRAST ME*05/09/2015 16 - Unknown TETANUS VACCINES AND TOXOID 05/16/2015 16 - Unknown Date Reviewed: 10/18/2017 Reviewed by: Power Catherine - Fully Assessed Order(s):SARS-COVID VACCINE 1ST DOSE APPT [[id number]] Order #: [id number] FUTURE Prescriptions as of 04/18/2020 Sig: ASPIRIN 81 MG TABLET,DELAYED * Take 81 mg by mouth once justice* ISOSORBIDE MONONITRATE ER 30 * Take 30 mg by mouth once justice* CARVEDILOL 12.5 MG TABLET Take 12.5 mg by mouth twice d* DOXAZOSIN 4 MG TABLET Take 4 mg by mouth daily at b* Problem List As Of Date: 04/18/2020 (None) Encounter Status:Closed by [employer], SoldUSER on 04/22/20[facility] Evaluation + Plan note Future Appointments Appointment Date:04/15/2022 08:45:00 AM Scheduled Provider:Ivelisse Hassan MD Location:[facility] Appointment Type:URO Office Visit [facility] evaluation + Plan note Future Appointments Appointment Date:04/15/2022 08:45:00 AM Scheduled Provider:Ivelisse Hassan MD Location:[facility] Appointment Type:URO Office Visit Diagnostic Tests Pending * [facility]rine [facility] Future Appointments Appointment Date:02/25/2022 11:00:00 AM Scheduled Provider:ADALGISA ANTOINE PA-C Location:[facility] Appointment Type:URO Office Visit Appointment Date:04/15/2022 08:45:00 AM Scheduled Provider:Ivelisse Hassan MD Location:[facility] Appointment Type:URO Office Visit [facility] evaluation + Plan note Future Appointments Appointment Date:06/24/2022 09:30:00 AM Scheduled Provider:Ivelisse Hassan MD Location:[facility] Appointment Type:URO Office Visit [facility] evaluation + Plan note Future Appointments Appointment Date:01/13/2023 09:00:00 AM Scheduled Provider:Ivelisse Hassan MD Location:[facility] Appointment Type:URO Office Visit [facility] evaluation + Plan note Future Appointments Appointment Date:09/01/2023 11:00:00 AM Scheduled Provider:Ivelisse Hassan MD Location:[facility] Appointment Type:URO Office Visit [facility] evaluation + Plan note Future Appointments Appointment Date:09/01/2023 11:00:00 AM Scheduled Provider:Ivelisse Hassan MD Location:[facility] Appointment Type:URO Office Visit Diagnostic Tests Pending * Calculi Analysis Urinary [facility]04/23 [facility] Diagnosis Onset Date Resolution Status AAA (abdominal aortic aneurysm) acute [facility] Work Phone: evaluation noteNo assessment information available [facility] Work Phone: evaluation noteNo InformationNoboone hospital center [employer] Other evaluation note* Diagnosis Onset Date Resolution Status Left carotid stenosis acute [facility] Work Phone: Evaluation note* Diagnosis Onset Date Resolution Status Hypercholesterolemia acute IFG (impaired fasting glucose) acute Kidney stones acute Nonrheumatic aortic (valve) stenosis acute Peripheral artery disease ac [place] Primary hypertension [facility] Work Phone: evaluation note* Diagnosis Onset Date Resolution Status Gallbladder polyp acute Hypercholesterolemia acute IFG (impaired fasting glucose) acute Nonrheumatic aortic (valve) stenosis acute Paget's disease of bony pelvis acute Peripheral artery disease ac [place] Primary hypertension [facility] Work Phone: Evaluation note* Diagnosis Onset Date Resolution Status Gallbladder polyp acute Hypercholesterolemia acute IFG (impaired fasting glucose) acute Nonrheumatic aortic (valve) stenosis acute Paget's disease of bony pelvis acute Peripheral artery disease ac [place] Primary hypertension acute AAA (abdominal aortic aneurysm) without rupture acute [facility] Work Phone: Evaluation note* Diagnosis Onset Date Resolution Status Gallbladder polyp acute Hypercholesterolemia acute IFG (impaired fasting glucose) acute Nonrheumatic aortic (valve) stenosis acute Paget's disease of bony pelvis acute Peripheral artery disease ac [place] Primary hypertension acute AAA (abdominal aortic aneurysm) without rupture acute AAA (abdominal aortic aneurysm) without rupture acute Benign prostatic hyperplasia with lower urinary tract symptoms acute Gallbladder polyp acute Hypercholesterolemia acute Mass of gallbladder acute Nonrheumatic aortic (valve) stenosis acute Paget's disease of bony pelvis acute Peripheral artery disease ac [place] Primary hypertension acute [facility] Work Phone: Evaluation note* Diagnosis Onset Date Resolution Status Hypercholesterolemia acute IFG (impaired fasting glucose) acute Nonrheumatic aortic (valve) stenosis acute Paget's disease of bony pelvis acute Peripheral artery disease ac [place] Primary hypertension acute AAA (abdominal aortic aneurysm) without rupture acute AAA (abdominal aortic aneurysm) without rupture acute Benign prostatic hyperplasia with lower urinary tract symptoms acute Hypercholesterolemia acute Mass of gallbladder acute Nonrheumatic aortic (valve) stenosis acute Paget's disease of bony pelvis acute Peripheral artery disease ac [place] Primary hypertension acute AAA (abdominal aortic aneurysm) without rupture acute Hypercholesterolemia acute IFG (impaired fasting glucose) acute Mass of gallbladder acute Nonrheumatic aortic (valve) stenosis acute Peripheral artery disease ac [place] Primary hypertension acute Preop exam for internal medicine noneactive [facility] Work Phone: Evaluation note* Diagnosis Onset Date Resolution Status Hypercholesterolemia acute IFG (impaired fasting glucose) acute Nonrheumatic aortic (valve) stenosis acute Paget's disease of bony pelvis acute Peripheral artery disease ac [place] Primary hypertension acute AAA (abdominal aortic aneurysm) without rupture acute AAA (abdominal aortic aneurysm) without rupture acute Benign prostatic hyperplasia with lower urinary tract symptoms acute Hypercholesterolemia acute Mass of gallbladder acute Nonrheumatic aortic (valve) stenosis acute Paget's disease of bony pelvis acute Peripheral artery disease [facility] Primary hypertension acute AAA (abdominal aortic aneurysm) without rupture acute Hypercholesterolemia acute IFG (impaired fasting glucose) acute Mass of gallbladder acute Nonrheumatic aortic (valve) stenosis acute Peripheral artery disease [facility] Primary hypertension acute Preop exam for internal medicine noneactive AAA (abdominal aortic aneurysm) without rupture acute Benign prostatic hyperplasia with lower urinary tract symptoms acute Hypercholesterolemia acute Mass of gallbladder acute Nonrheumatic aortic (valve) stenosis acute Paget's disease of bony pelvis acute Peripheral artery disease [facility] Primary hypertension acute [facility] Work Phone: Evaluation note* Diagnosis Onset Date Resolution Status AAA (abdominal aortic aneurysm) without rupture acute Benign prostatic hyperplasia with lower urinary tract symptoms acute Hypercholesterolemia acute Mass of gallbladder acute Nonrheumatic aortic (valve) stenosis acute Paget's disease of bony pelvis acute Peripheral artery disease [facility] Primary hypertension acute AAA (abdominal aortic aneurysm) without rupture acute Hypercholesterolemia acute IFG (impaired fasting glucose) acute Mass of gallbladder acute Nonrheumatic aortic (valve) stenosis acute Peripheral artery disease [facility] Primary [facility] acute Preop exam for internal medicine noneactive AAA (abdominal aortic aneurysm) without rupture acute Benign prostatic hyperplasia with lower urinary tract symptoms acute Hypercholesterolemia acute Mass of gallbladder acute Nonrheumatic aortic (valve) stenosis acute Paget's disease of bony pelvis acute Peripheral artery disease [facility] Primary hypertension acute Acute on chronic heart failu re with preserved ejection fraction (HFpEF) acute Atrial fibrillation acute Hypercholesterolemia acute IFG (impaired fasting glucose) acute Nonrheumatic aortic (valve) stenosis acute NSTEMI (non-ST elevated myocardial infarction) acute Primary hypertension acute [facility] Work Phone: Evaluation note* Diagnosis Onset Date Resolution Status AAA (abdominal aortic aneurysm) without rupture acute Benign prostatic hyperplasia with lower urinary tract symptoms acute Hypercholesterolemia acute Mass of gallbladder acute Nonrheumatic aortic (valve) stenosis acute Paget's disease of bony pelvis acute Peripheral artery disease [facility] Primary hypertension acute AAA (abdominal aortic aneurysm) without rupture acute Hypercholesterolemia acute IFG (impaired fasting glucose) acute Mass of gallbladder acute Nonrheumatic aortic (valve) stenosis acute Peripheral artery disease [facility] Primary hypertension acute Preop exam for internal medicine noneactive AAA (abdominal aortic aneurysm) without rupture acute Benign prostatic hyperplasia with lower urinary tract symptoms acute Hypercholesterolemia acute Mass of gallbladder acute Nonrheumatic aortic (valve) stenosis acute Paget's disease of bony pelvis acute Peripheral artery disease ac [place] Primary hypertension acute Acute on chronic heart failu re with preserved ejection fraction (HFpEF) acute Atrial fibrillation acute Hypercholesterolemia acute IFG (impaired fasting glucose) acute Nonrheumatic aortic (valve) stenosis acute NSTEMI (non-ST elevated myocardial infarction) acute Primary hypertension acute AAA (abdominal aortic aneurysm) without rupture acute Carotid stenosis, bilateral acute Former smoker acute [facility] Work Phone: Evaluation note* Diagnosis Onset Date Resolution Status AAA (abdominal aortic aneurysm) without rupture acute Hypercholesterolemia acute IFG (impaired fasting glucose) acute Mass of gallbladder acute Nonrheumatic aortic (valve) stenosis acute Peripheral artery disease ac [place] Primary hypertension acute Preop exam for internal medicine noneactive AAA (abdominal aortic aneurysm) without rupture acute Benign prostatic hyperplasia with lower urinary tract symptoms acute Hypercholesterolemia acute Mass of gallbladder acute Nonrheumatic aortic (valve) stenosis acute Paget's disease of bony pelvis acute Peripheral artery disease ac [place] Primary hypertension acute Acute on chronic heart failu re with preserved ejection fraction (HFpEF) acute Atrial fibrillation acute Hypercholesterolemia acute IFG (impaired fasting glucose) acute Nonrheumatic aortic (valve) stenosis acute NSTEMI (non-ST elevated myocardial infarction) acute Primary hypertension acute AAA (abdominal aortic aneurysm) without rupture acute Carotid stenosis, bilateral acute Former smoker acute Acute on chronic heart failu re with preserved ejection fraction (HFpEF) acute Atrial fibrillation acute Hypercholesterolemia acute IFG (impaired fasting glucose) acute Nonrheumatic aortic (valve) stenosis acute NSTEMI (non-ST elevated myocardial infarction) acute Primary hypertension acute [facility] Work Phone: History general Narrative - Reported* Type Description Date Medical History hypercholesterolemia Medical History abdominal aortic aneurysm Medical History Carotid stenosis Medical History PAD Surgical History TURP Surgical History knee arthroscopy LEFT Surgical History Vein stripping Hospitalization History See Above [employer] Other Hisbndt general Narrative - Reported* Type Description Date Medical History hypercholesterolemia Medical History abdominal aortic aneurysm Medical History Carotid stenosis Medical History PAD Surgical History TURP Surgical History knee arthroscopy LEFT Surgical History Vein stripping Surgical History RT FEMUR FX WITH [employer]AB[employer]LLA PLACEMENT Hospitalization History See Above [employer] Other History general Narrative - Reported* Type Description Date Medical History hypercholesterolemia Medical History abdominal aortic aneurysm Medical History Carotid stenosis Medical History PAD Medical History [ ] Surgical History TURP Surgical History knee arthroscopy LEFT Surgical History Vein stripping Surgical History RT FEMUR FX WITH ARABELLA PLACEMENT Surgical History EVAR 02/04/2022 Surgical History [ ] Hospitalization History See Above [employer] Other History general Narrative - Reported* Type [...] History COLONOSCOPY 2019 Hospitalization History See Above [employer] Other History general Narrative - Reported* Type [...] Left TCAR 07/2022 Hospitalization History See Above [employer] Other History general Narrative - Reported* Type [...] Left TCAR 07/2022 Hospitalization History See Above [employer] Other Hiswbtw general Narrative - Reported* Type Description Date [...] left ESWL 03/2023 Hospitalization History See Above [employer] Other Hospital course Narrative No data available for this section [facility] Discharge instructions No data available for this section [facility] Author Raul Quan [facility] October 15, 2021 4:31pm Note Date/Time October 15, 2021 4: 31pm [facility] [address] [place] [address] Vascular Surgery Progress Note Signed Patient: Chico Baker MR#: [id number] : 1940 Acct:[id number] Age/Sex: 81 / M Adm Date: 2 Loc: 4N Room: 3W3380-0 Type: DIS IN Attending Dr: Raul Quan [...] proceed with evaluation here. I will contact [facility] to performoutpatient cardiac evaluation and then he will be rescheduled when he is cleared. Code(s): I71.4 - Abdominal aortic aneurysm, without rupture Status: Acute Documented By: Raul Quan MD 10/15/21 162 9 Signed By: <Electronically signed by MD Raul Quan> 10/15/21 1631 [facility] Work Phone: Progress note Author Pb Zurita [facility] October 16, 2021 5:41am Note Date/Time October 16, 2021 5: 41am [facility] ENTER [address] [place] [address] Anesthesia Progress Note Signed Patient: Chico Baker MR#: [id number] : 1940 Acct:[id number] Age/Sex: 81 / M Adm Date: 2 Loc: Room: [address] [place] [address] Type: DIS IN Attending Dr: Raul Qaun MD Copies to: ~ Anesthesia Progress Note Narrative Narrative: Patient for [facility] today for 5+ centimeter infrarenal AAA. Past medical history hypertension, moderate aortic stenosis, and coronary artery disease. Review of medical records and discussion with indicates patient had stress test 2009 positive for infarct and ischemia at which time he was referred to [facility] and had cardiac cath. Medical management was apparently chosen. No interval events,testing, or intervention. Patient has been asymptomatic but sedentary and poor historian. Advised patient and family to see bread supervisor for consideration of preop stress testing. Discussed with surgeon Documented By: Pb Zurita MD 10/16/21 0535 Signed By: <Electronically signed by Pb Zurita MD> 10/16/21 0541 [facility] Work Phone: Progress note No data available for this section [facility] Reason for Referral No Reason [...] Documentation i71.4 BP check S/P EVAR; [facility] Reason for Visit Gallbladder polyp Hypercholesterolemia IFG [...] Complaint i71.4 BP check S/P EVAR; [facility] Nonrheumatic aortic stenosis Reason for Visit Gallbladder [...] Complaint i71.4 BP check S/P EVAR; [facility] Nonrheumatic aortic stenosis sugical clearance, gall bladder [...] Complaint i71.4 BP check S/P EVAR; [facility] Nonrheumatic aortic stenosis sugical clearance, gall bladder [...] Complaint i71.4 BP check S/P EVAR; [facility] Nonrheumatic aortic stenosis sugical clearance, gall bladder [...] Peripheral artery disease Primary hypertension Chief Complaint Nonrheumatic aortic stenosis sugical clearance, gall bladder removal I35.0 2 weeks Amb Documentation Amb Documentation hospital follow up Reason for Visit AAA (abdominal aorti c aneurysm) without rupture Benign prostatic hyperplasia with [...] bony pelvis Peripheral artery disease Primary hypertension Acute on chronic heart failure with preserved ejection fraction (HFpEF) Atrial fibrillation Hypercholesterolemia IFG (impaired fasting glucose) Nonrheumatic aortic (valve) stenosis NSTEMI (non-ST elevated myocardial infarction) Primary hypertension Chief Complaint Nonrheumatic aortic stenosis sugical clearance, gall bladder removal I35.0 2 weeks Amb Documentation Amb Documentation hospital follow up 1 YR F/U; CAROTID DUPLEX 10A I65.23 Reason for Visit AAA (abdominal aorti c aneurysm) without rupture Benign prostatic hyperplasia with [...] bony pelvis Peripheral artery disease Primary hypertension Acute on chronic heart failure with preserved ejection fraction (HFpEF) Atrial fibrillation Hypercholesterolemia IFG (impaired fasting glucose) Nonrheumatic aortic (valve) stenosis NSTEMI (non-ST elevated myocardial infarction) Primary hypertension Chief Complaint Nonrheumatic aortic stenosis sugical clearance, gall bladder removal I35.0 2 weeks Amb Documentation Amb Documentation hospital follow up 1 YR F/U; CAROTID DUPLEX 10A I65.23 Reason for Visit AAA (abdominal aorti c aneurysm) without rupture Benign prostatic hyperplasia with [...] bony pelvis Peripheral artery disease Primary hypertension Acute on chronic heart failure with preserved ejection fraction (HFpEF) Atrial fibrillation Hypercholesterolemia IFG (impaired fasting glucose) Nonrheumatic aortic (valve) stenosis NSTEMI (non-ST elevated myocardial infarction) Primary hypertension AAA (abdominal aortic aneurysm) without rupture Carotid stenosis, bilateral Former smoker Chief Complaint sugical clearance, g all bladder removal I35.0 2 weeks Amb Documentation Amb Documentation hospital follow up 1 YR F/U; CAROTID DUPLEX 10A I65.23 1 month f/u Reason for Visit AAA (abdominal aorti c aneurysm) without rupture Hypercholesterolemia IFG (impaired fasting glucose) Mass of gallbladder Nonrheumatic aortic (valve) stenosis Peripheral artery disease Primary hypertension Preop exam for internal medicine AAA (abdominal aortic aneurysm) without rupture Benign prostatic hyperplasia with lower urinary tract symptoms Hypercholesterolemia Mass of gallbladder 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 Peripheral artery disease Primary hypertension Acute on chronic heart failure with preserved ejection fraction (HFpEF) Atrial fibrillation Hypercholesterolemia IFG (impaired fasting glucose) Nonrheumatic aortic (valve) stenosis NSTEMI (non-ST elevated myocardial infarction) Primary hypertension AAA (abdominal aortic aneurysm) without rupture Carotid stenosis, bilateral Former smoker Acute on chronic heart failure with preserved ejection fraction (HFpEF) Atrial fibrillation Hypercholesterolemia IFG (impaired fasting glucose) Nonrheumatic aortic (valve) stenosis NSTEMI (non-ST elevated myocardial infarction) Primary hypertension Additional Source Comments Medical History [...] section and content) DATE CREATED AUTHOR 04/02/2021 [facility] DATE CREATED AUTHOR AUTHOR'S ORGANIZ ATION 10/28/2021 [facility] DATE CREATED AUTHOR AUTHOR'S ORGANIZ ATION 04/14/2022 [facility] DATE CREATED AUTHOR AUTHOR'S ORGANIZ ATION 05/13/2023 [facility] DATE CREATED AUTHOR AUTHOR'S ORGANIZ ATION 07/29/2023 [facility] EPIC DATE CREATED AUTHOR AUTHOR'S ORGANIZ ATION 10/29/2023 [facility] DATE CREATED AUTHOR AUTHOR'S ORGANIZ ATION 11/16/2023 [facility] REASON FOR VISIT (unrecogniz ed section and content) REF BY DR DUNHAM FOR AAA, PAD AND CAROTID STENOSIS, Needs a new vascular surgeon7 WK FOLLOW UP; SHYANNE'S, ABDOMINAL, CAROTID WK FOLLOW UP; [facility], ABDOMINAL, CAROTID 08/27/21FOLLOW UP AFTER [facility]A [facility] 09/18/21-AAAAAA see pt post femur fx rt and clavicle rt6 WK FOLLOW UP, Follow-up abdominal aortic aneurysmVASC 3 MONTH FOLLOW UP; CAROTID DUPLEX 11A, Abdominal aortic aneurysm3 week f/u [facility], Follow-up after percutaneous aneurysm repairNo InformationNo InformationNo InformationNo InformationNo Information2 MONTH FOLLOW UP; CTA [facility]/ Follow UpNo InformationNo InformationNo Information3 week [...] July 05, 2023 End: July 05, 2023 aRul Quan MD Attending Provider Active S tart: [...] Kirk Dunham DO Primary Care Provider Active KB Wang Attending Provider Active Team Status: Inactive Member Role Status Kirk Dunham DO Attending Provider Active Sta rt: March 29, 2023 End: March 29, 2023 Team Status: Active Member Role Status Dates Sheri Christiansen MD Light Cleaner Active Shailesh Dunham DO Primary Care Provider [...] September 03, 2023 End: September 03, 2023 Team Status: Active Member Role Status Kirk Dunham DO Primary Care Provider Active Start: October 14, 2023 Raul Chadwick DO Attending Provider Active S tart: October 14, 2023 Team Status: Active Member Role Status Kirk Dunham DO Primary Care Provider Active Start: October 15, 2023 Shaikh Agustina MD Attending Provider Active Sta rt: October 15, 2023 Team Status: Active Member Role Status Kirk Dunham DO Primary Care Provider Active Start: October 16, 2023 Shaikh Agustina MD Attending Provider Active Sta rt: October 16, 2023 Team Status: Active Member Role Status Kirk Dunham DO Primary Care Provider Active Start: October 17, 2023 Shaikh Agustina MD Attending Provider Active Sta rt: October 17, 2023 Team Status: Active Member Role Status Kirk Dunham DO Primary Care Provider Active Start: October 18, 2023 CARLOS A Buenrostro Attending Provider Active St art: October 18, 2023 Team Status: Inactive Member Role Status Kirk Dunham DO Primary Care Provide r, Attending Provider Active Start: October 21, 2023 End: October 21, 2023 Team Status: Active Member Role Status Kirk Dunham DO Primary Care Provide r, Attending Provider Active Start: October 26, 2023 Team Status: Inactive Member Role Status Kirk Dunham DO Primary Care Provider Active Start: November 15, 2023 End: November 15, 2023 Raul Quan MD Attending Provider Active S tart: November 15, 2023 End: November 15, 2023 Team Status: Active Member Role Status Kirk Dunham DO Primary Care Provider Active Start: November 15, 2023 Raul Quan MD Attending Provider Active S tart: November 15, 2023 Team Status: Active Member Role Status Dates Shailesh Ball , DO Primary Care Provide r, Attending Provider Active Start: October 14, 2023 End: October 17, 2023 Vivek Sampson MD Referring Provider Active Sta rt: October 14, 2023 End: October 17, 2023 Team Status: Active Member Role Status Dates Shailesh Dunham , DO Primary Care Provide r, Attending Provider Active Start: October 15, 2023 End: October 17, 2023 Vivek Sampson MD Referring Provider Active Sta rt: October 15, 2023 End: October 17, 2023 Team Status: Active Member Role Status Dates Shailesh Dunham DO Primary Care Provide r, Attending Provider Active Start: October 16, 2023 End: October 17, 2023 Vivek Sampson MD Referring Provider Active Sta rt: October 16, 2023 End: October 17, 2023 Team Status: Active Member Role Status Kirk Shailesh Dunham DO Primary Care Provide r, Attending Provider Active Start: November 09, 2023 Team Status: Inactive Member Role Status Kirk Shailesh Dunham DO Primary Care Provide r, Attending Provider Active Start: November 23, 2023 End: November 23, 2023 Goals (unrecognized section and content) Goals [...] BE BASED ON THE PRIMARY CLINICAL RECORDS. [facility] [employer] [facility]. provides no warranty or guarantee of the accuracy or completeness of information in this document.
--- OUTSIDE RECORDS SUMMARY | 2023-12-17 11:21 | XMS_ITS | CCD ---
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 Name Role Phone Orlando Dotson Unavailable Raul Quan Unavailable Tamar Perea Unavailable Shailesh Dunham Unavailable DO Shailesh Dunham Primary Care Provider MD Raul Quan Attending Provider KB Perea Attending Provider MD Raul Quan Admit Provider DO Shailesh Dunham Primary Care Provider KB Perea Attending Provider MD Raul Quan Admit Provider MD Raul Quan Attending Provider [phone] SHAILESH DUNHAM Primary Care Physician [phone] IVELISSE FRANCIS Admitting Unavailable IVELISSE FRANCIS Attending [...] Unavailable DO Shailesh Dunham Primary Care Provider [phone] MD Raul Quan Attending Provider DO Shailesh [...] Unavailable DO Shailesh Dunham Primary Care Provider [phone] MD Raul Quan Attending Provider CLIFTON CORREA Attending Unavailable SHAILESH DUNHAM Referring Unavailable MD Sheri Christiansen Attending Provider DO Shailesh Dunham Primary Care Provider AMBER BRYANT Referring Unavailable AMBER BRYANT Referring Unavailable MARIA EUGENIA BERRY Attending Unavailable AMBER BRYANT Attending Unavailable AMBER BRYANT Attending Unavailable AMBER BRYANT Admitting Unavailable AMBER BRYANT Attending Unavailable AMBER BRYANT Attending Unavailable AMBER BRYANT Referring Unavailable MARIA EUGENIA BERRY Referring Unavailable MARIA EUGENIA BERRY Referring Unavailable MD Raul Quan Attending Provider Shailesh Dunham Primary Care Unavailable Raul Quan Admitting Unavailable Raul Quan Attending Unavailable Shailesh Dunham Primary Care Unavailable Avelina, Raul Admitting Unavailable Raul Quan Attending Unavailable Shailesh Dunham Primary Care Unavailable Елена Sheri Admitting Unavailable Sheri Christiansen Attending Unavailable Shailesh Dunham Primary Care Unavailable Елена, Sheri Admitting Unavailable Sheri Christiansen Attending Unavailable DO Shailesh Dunham Primary Care Provider [phone] MD Sehri Christiansen Attending Provider Allergies Allergy Classification Reported Allergen(s) Allergy Type Date of Onset Reaction(s) Facility Angiotensin Converting Enzyme (SHALINI) Inhibitors (2 sources) Angiotensin Converting Enzyme (Shalini) Inhibitors Drug Allergy 08-27-19 24 [facility] Tetanus immune globulin (2 sources) Tetanus immune globulin Drug Allergy 08-27-19 24 Unknown Reaction [facility] (5 sources) Angiotensin Converting Enzyme (Shalini) Inhibitors Drug allergy Unknown [facility] Other (6 sources) Tetanus vaccine; Translations: [tetanus toxoid] Drug allergy Unknown [facility] Rep[facility] (20 sources) Angiotensin Converting Enzyme (Shalini) Inhibitors; Translations: [Angiotensin-conv erting enzyme inhibitor agent (substance)] Allergy to substance 05-09-19 16 Hives, [facility] (8 sources) Contrast media Allergy to substance 10-07-19 22 [facility] (20 sources) Tetanus immune globulin; Translations: [TETANUS IMMUNE GLOBULIN] Drug Allergy 02-24-20 19 Unknown Reaction [facility] (20 sources) Angiotensin-conve rting enzyme inhibitor agent Drug allergy Unknown [facility] Other (2 sources) Tetanus toxoid specific immunoglobulin E Drug allergy Unknown [facility] Other (12 sources) Contrast media; Translations: [Contrast Dye] Allergy to substance unknown [facility] (13 sources) Iodine; Translations: [iodine] Drug Allergy 10-27-19 22 Unknown (qualifier value) [facility] (11 sources) tetanus toxoid vaccine, inactivated; Translations: [tetanus toxoid] Drug Allergy Unknown (qualifier value) [facility] (1 source) Iodine Drug Allergy [facility] Repository (1 source) Iodine (And Iodine Containting Drugs) Drug allergy (disorder) [facility] Rep[facility] (1 source) Tetanus AND Diphtheria Tox,Adult Drug allergy (disorder) [facility] (20 sources) Tetanus vaccine Drug allergy Unknown [facility] Other (17 sources) Iodinated Contrast Media; Translations: [IODINATED CONTRAST MEDIA] Allergy to substance 10-27-19 22 [facility] (13 sources) tetanus toxoid, adsorbed; Translations: [tetanus toxoid, adsorbed] Allergy to substance 04-26-19 Unknown Reaction [facility] (1 source) GADOLINIUM-CONTAI MAYA CONTRAST MEDIA; Translations: [GADOLINIUM-CONTA INING CONTRAST MEDIA] Propensity to adverse reactions to drug (disorder) 05-09-19 16 [facility] Repository (1 source) TETANUS AND DIPHTHERIA TOXOIDS; Translations: [TETANUS AND DIPHTHERIA TOXOIDS] Propensity to adverse reactions to drug (disorder) 10-27-19 22 [facility] Repository (1 source) TETANUS VACCINES AND TOXOID; Translations: [TETANUS VACCINES AND TOXOID] Propensity to adverse reactions to drug (disorder) 05-16-19 16 [facility] Repository (1 source) ALLERGIES NOT ON FILE; Translations: [ALLERGIES NOT ON FILE] Propensity to adverse reactions (disorder) [facility] Repository Medications Current Medications Medication Drug [...] 2019 1:00am April 26, 2023 6:54pm Isosorbide [place] itrate Active isosorbide dinitrate 30 mg oral [...] Daily, # 30 tab(s), Refills(s) 6, Pharmacy: [facility]/pharmacy #[id number], 169, cm, 10/07/22 8:54:00 EDT, Height/Length [...] for 30 day(s), 60 tab(s), Refill(s) 0, [facility]/pharmacy #[id number], 169, cm, 02/11/22 8:44:00 EST, Height/Length [...] acid 7540 MG / polyethylene glycol 3350 56529 MG / potassium chloride 1200 MG / sodium ascorbate 38884 MG / sodium chloride 3200 MG Powder for Oral Solution) / 1 (polyethylene glycol 3350 029246 MG / potassium chloride 1000 MG / [...] 02-11-2022 take 2 tablets by mo [facility] three times daily calcium (as calcium citrate) [...] 12:15pm take 1 capsule by mo [facility] every twenty-four hours Tamsulosin HCl 0.4 MG [...] Coronary arteriosclerosis; Translations: [Atherosclerotic heart disease of [place] coronary artery without angina pectoris] Onset: 11-14-2021 [...] 2 Episodic Other aftercare (1 source) 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; Translations: [OTH ALF CURRENT DRUG THERAPY] Onset: 2 Episodic Other aftercare (1 source) 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; Translations: [ALF CURRNT USE ANTICOAGULANTS] Onset: 2 Episodic Other aftercare (1 source) correction (current) use of aspirin; Translations: [ALF CURRENT [...] doppler BIon 09-0 US carotid doppler BI [facility] [address] [place] [address] Ultrasound Report Signed Patient: Chico Baker MR#: [id number] 284 : 1940 Acct:[id number] Age/Sex: 83 / M ADM Date: 11/15/23 Loc: [facility] Room: Type: [facility] Attending Dr: Raul Quan MD Ordering Provider: [...] Raul Quan M.D.11/15/2023 10:27 AM Dictation Location: [place] [address] Tech: Jennifer Mancini Transcribed By: ALEX 11/15/23 1027 Dictated By: Raul Quan MD 11/15/23 1025 Signed By: 11/15/[address] [facility] Office Visiton 10-27-2023 Follow-up visit [id number] [address] 1940 M Date Provider Department Center 10/27/2023 [id number] BRYANT DCC ONC DCC Family History Problem Relation Age of Onset Heart disease Mother No Known Problems Father No Known Problems Sister Family Status - Relation Status Age at Mother Father Sister Alive Level of Service:46985 DE POSTOP FOLLOW UP VISIT RELATED TO ORIGINAL PX Reason for Visit and Comments: Post-op [483] - Here for post-op visit - S/P robot 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 Normal [facility] Basophils Auto (Bld) [#/Vol] on 10-26-2023 Basophils (Bld) [#/Vol] 0.1 10 3/uL 0.0-0.1 [facility] Basophils/100 WBC Auto (Bld) on 10-26-2023 Basophils/100 WBC (Bld) 0.5 % 0.2-2.0 [facility] Eosinophils/100 WBC Auto (Bl d)on 10-26-2023 Eosinophils/100 WBC (Bld) 2.9 % 0.9-7.0 [facility] Erythrocyte distribution wid th Auto (RBC) [Ratio]on 10-26-2023 Erythrocyte distribution width (RBC) [Ratio] 12.7 % 11.0-15.0 [facility] Estimated glomerular filtrat ion rate (GFR) non- Americanon 10-26-2023 GFR/1.73 sq M.predicted among non-blacks MDRD (S/P/Bld) [Vol rate/Area] mL/min/{1.73_m2} >=60 [facility] Globulin Calc (S) [Mass/Vol] on 10-26-2023 Globulin (S) [Mass/Vol] 3.9 g/dL [facility] Hematocrit Auto (Bld) [Volum e fraction]on 10-26-2023 Hematocrit (Bld) [Volume fraction] 32.4 % Low 42.0-54.0 [facility] Hemoglobin [Mass/volume] in Bloodon 10-26-2023 Hemoglobin (Bld) [Mass/Vol] 10.4 g/dL Low 14.0-18.0 [facility] Laboratory - Chemistry and C hemistry - challengeon 10-26-2023 Albumin [Mass/Vol] 3.1 g/dL Low 3.4-5.0 [facility] ALP [Catalytic activity/Vol] 106 U/L 46-116 [facility] ALT [Catalytic activity/Vol] 19 U/L 16-63 [facility] AST [Catalytic activity/Vol] 16 U/L 15-37 [facility] Bilirubin [Mass/Vol] 0.5 mg/dL 0.2-1.[address] [facility] Calcium [Mass/Vol] 8.8 mg/dL 8.5-10.1 [facility] Chloride [Moles/Vol] 100 mmol/L 98-[address] [facility] CO2 [Moles/Vol] 29.0 mmol/L 21.0-32.0 [facility] Creatinine [Mass/Vol] 0.95 mg/dL 0.70-1.[address] [facility] GFR/1.73 sq M.predicted MDRD (S/P/Bld) [Vol rate/Area] mL/min/{1.73_m2} >=60 [facility] Glucose [Mass/Vol] 134 mg/dL High 74-106 [facility] Potassium [Moles/Vol] 4.5 mmol/L 3.5-5.[address] [facility] Protein [Mass/Vol] 7.0 g/dL 6.4-8.2 [facility] Sodium [Moles/Vol] 136 mmol/L 136-145 [facility] TSH Qn 2.068 m[IU]/L 0.358-3.74 0 [facility] Urea nitrogen [Mass/Vol] 14.0 mg/dL 7.0-18.0 [facility] Urea nitrogen/Creatinine [Mass ratio] 14.7 mg/mg [facility] Laboratory - Hematology and Cell countson 10-26-2023 Immature granulocytes/100 WBC (Bld) 0.5 % 0.0-0.5 [facility] Leukocytes [#/volume] correc shyann for nucleated erythrocytes in Blood by Automated counon 10-26-2023 WBC corrected for nucl RBC Auto (Bld) [#/Vol] 12.4 10 3/uL High 4.0-11.0 [facility] Lymphocytes Auto (Bld) [#/Vo l]on 10-26-2023 Lymphocytes (Bld) [#/Vol] 1.4 10 3/uL 1.2-3.8 [facility] Lymphocytes/100 WBC Auto (Bl d)on 10-26-2023 Lymphocytes/100 WBC (Bld) 11.6 % Low 20.5-60.0 [facility] MCH Auto (RBC) [Entitic mass ]on 10-26-2023 MCH (RBC) [Entitic mass] 30.0 pg 25.9-34.0 [facility] MCHC Auto (RBC) [Mass/Vol]on 10-26-2023 MCHC (RBC) [Mass/Vol] 32.1 g/dL 29.9-35.[address] [facility] MCV Auto (RBC) [Entitic vol] on 10-26-2023 MCV (RBC) [Entitic vol] 93.4 fL 80.0-94.0 [facility] Monocytes Auto (Bld) [#/Vol] on 10-26-2023 Monocytes (Bld) [#/Vol] 1.4 10 3/uL High 0.3-0.8 [facility] Monocytes/100 WBC Auto (Bld) on 10-26-2023 Monocytes/100 WBC (Bld) 11.0 % 1.7-12.0 [facility] Neutrophils Auto (Bld) [#/Vo l]on 10-26-2023 Neutrophils (Bld) [#/Vol] 9.1 10 3/uL High 1.4-6.5 [facility] Neutrophils/100 WBC Auto (Bl d)on 10-26-2023 Neutrophils/100 WBC (Bld) 73.5 % 43.0-75.0 [facility] No Panel Informationon 10-25 Eosinophils # (Auto) 0.4 10 3/uL 0.0-0.[address] [facility] Immature Granulocyte # (Auto) 0.06 10 3/uL High 0.00-0.03 [facility] Platelet mean volume Auto (B ld) [Entitic vol]on 10-26-2023 Platelet mean volume (Bld) [Entitic vol] 9.2 fL Low 9.5-13.5 [facility] Platelets Auto (Bld) [#/Vol] on 10-26-2023 Platelets (Bld) [#/Vol] 209 10 3/uL 150-450 [facility] RBC Auto (Bld) [#/Vol]on RBC (Bld) [#/Vol] 3.47 10 6/uL Low 4.70-6.10 [facility] Serum or plasma albumin/glob ulin mass ratioon 10-26-2023 Albumin/Globulin [Mass ratio] 0.8 {ratio} [facility] Serum or plasma anion gap de terminationon 10-26-2023 Anion gap [Moles/Vol] 11.5 mmol[facility] Basophils Auto (Bld) [#/Vol] on 10-17-2023 Basophils (Bld) [#/Vol] 0.0 10 3/uL 0.0-0.1 [facility] Basophils/100 WBC Auto (Bld) on 10-17-2023 Basophils/100 WBC (Bld) 0.2 % 0.2-2.0 [facility] Eosinophils/100 WBC Auto (Bl d)on 10-17-2023 Eosinophils/100 WBC (Bld) 1.6 % 0.9-7.0 [facility] Erythrocyte distribution wid th Auto (RBC) [Ratio]on 10-17-2023 Erythrocyte distribution width (RBC) [Ratio] 12.2 % 11.0-15.0 [facility] Estimated glomerular filtrat ion rate (GFR) non- Americanon 10-17-2023 GFR/1.73 sq M.predicted among non-blacks MDRD (S/P/Bld) [Vol rate/Area] mL/min/{1.73_m2} >=60 [facility] Globulin Calc (S) [Mass/Vol] on 10-17-2023 Globulin (S) [Mass/Vol] 3.5 g/dL [facility] Hematocrit Auto (Bld) [Volum e fraction]on 10-17-2023 Hematocrit (Bld) [Volume fraction] 29.1 % Low 42.0-54.0 [facility] Hemoglobin [Mass/volume] in Bloodon 10-17-2023 Hemoglobin (Bld) [Mass/Vol] 9.6 g/dL Low 14.0-18.0 [facility] Laboratory - Chemistry and C hemistry - challengeon 10-17-2023 Albumin [Mass/Vol] 2.8 g/dL Low 3.4-5.0 [facility] ALP [Catalytic activity/Vol] 99 U/L 46-116 [facility] ALT [Catalytic activity/Vol] 33 U/L 16-63 [facility] AST [Catalytic activity/Vol] 15 U/L 15-37 [facility] Bilirubin [Mass/Vol] 0.8 mg/dL 0.2-1.[address] [facility] Calcium [Mass/Vol] 8.4 mg/dL Low 8.5-10.1 [facility] Chloride [Moles/Vol] 96 mmol/L Low 98-[address] [facility] CO2 [Moles/Vol] 30.9 mmol/L 21.0-32.0 [facility] Creatinine [Mass/Vol] 0.84 mg/dL 0.70-1.[address] [facility] GFR/1.73 sq M.predicted MDRD (S/P/Bld) [Vol rate/Area] mL/min/{1.73_m2} >=60 [facility] Glucose [Mass/Vol] 103 mg/dL 74-106 [facility] Natriuretic peptide B (Bld) [Mass/Vol] 1963.0 pg/mL High <=1800.0 [facility] Comment on above: RESULTS CALLED TO IC U Eder Elaine, RN @BY Fuad Carmona MLT at 0617 Potassium [Moles/Vol] 3.8 mmol/L 3.5-5.[address] [facility] Protein [Mass/Vol] 6.3 g/dL Low 6.4-8.2 [facility] Sodium [Moles/Vol] 130 mmol/L Low 136-145 [facility] Urea nitrogen [Mass/Vol] 28.0 mg/dL High 7.0-18.0 [facility] Urea nitrogen/Creatinine [Mass ratio] 33.3 mg/mg [facility] Laboratory - Hematology and Cell countson 10-17-2023 Immature granulocytes/100 WBC (Bld) 0.4 % 0.0-0.5 [facility] Leukocytes [#/volume] correc shyann for nucleated erythrocytes in Blood by Automated counon 10-17-2023 WBC corrected for nucl RBC Auto (Bld) [#/Vol] 9.1 10 3/uL 4.0-11.0 [facility] Lymphocytes Auto (Bld) [#/Vo l]on 10-17-2023 Lymphocytes (Bld) [#/Vol] 1.2 10 3/uL 1.2-3.8 [facility] Lymphocytes/100 WBC Auto (Bl d)on 10-17-2023 Lymphocytes/100 WBC (Bld) 13.5 % Low 20.5-60.0 [facility] MCH Auto (RBC) [Entitic mass ]on 10-17-2023 MCH (RBC) [Entitic mass] 30.2 pg 25.9-34.0 [facility] MCHC Auto (RBC) [Mass/Vol]on 10-17-2023 MCHC (RBC) [Mass/Vol] 33.0 g/dL 29.9-35.[address] [facility] MCV Auto (RBC) [Entitic vol] on 10-17-2023 MCV (RBC) [Entitic vol] 91.5 fL 80.0-94.0 [facility] Monocytes Auto (Bld) [#/Vol] on 10-17-2023 Monocytes (Bld) [#/Vol] 1.1 10 3/uL High 0.3-0.8 [facility] Monocytes/100 WBC Auto (Bld) on 10-17-2023 Monocytes/100 WBC (Bld) 12.0 % 1.7-12.0 [facility] Neutrophils Auto (Bld) [#/Vo l]on 10-17-2023 Neutrophils (Bld) [#/Vol] 6.6 10 3/uL High 1.4-6.5 [facility] Neutrophils/100 WBC Auto (Bl d)on 10-17-2023 Neutrophils/100 WBC (Bld) 72.3 % 43.0-75.0 [facility] No Panel Informationon 10-16 Eosinophils # (Auto) 0.2 10 3/uL 0.0-0.[address] [facility] Immature Granulocyte # (Auto) 0.04 10 3/uL High 0.00-0.03 [facility] Troponin I High Sensitivity 180.4 pg/mL High 4.0-76.1 [facility] Comment on above: RESULTS CALLED TO [...] volume (Bld) [Entitic vol] 9.7 fL 9.5-13.5 [facility] Platelets Auto (Bld) [#/Vol] on 10-17-2023 Platelets (Bld) [#/Vol] 191 10 3/uL 150-450 [facility] RBC Auto (Bld) [#/Vol]on RBC (Bld) [#/Vol] 3.18 10 6/uL Low 4.70-6.10 [facility] Serum or plasma albumin/glob ulin mass ratioon 10-17-2023 Albumin/Globulin [Mass ratio] 0.8 {ratio} [facility] Serum or plasma anion gap de terminationon 10-17-2023 Anion gap [Moles/Vol] 6.9 mmol/L [facility] Basophils Auto (Bld) [#/Vol] on 10-16-2023 Basophils (Bld) [#/Vol] 0.0 10 3/uL 0.0-0.1 [facility] Basophils/100 WBC Auto (Bld) on 10-16-2023 Basophils/100 WBC (Bld) 0.2 % 0.2-2.0 [facility] Basophils/100 WBC Manual cnt (Bld)on 10-16-2023 Basophils/100 WBC (Bld) 1.0 % 0.2-2.0 [facility] Eosinophils/100 WBC Auto (Bl d)on 10-16-2023 Eosinophils/100 WBC (Bld) 0.3 % Low 0.9-7.0 [facility] Eosinophils/100 WBC Manual c nt (Bld)on 10-16-2023 Eosinophils/100 WBC (Bld) 0.0 % Low 0.9-7.0 [facility] Erythrocyte distribution wid th Auto (RBC) [Ratio]on 10-16-2023 Erythrocyte distribution width (RBC) [Ratio] 12.4 % 11.0-15.0 [facility] Estimated glomerular filtrat ion rate (GFR) non- Americanon 10-16-2023 GFR/1.73 sq M.predicted among non-blacks MDRD (S/P/Bld) [Vol rate/Area] mL/min/{1.73_m2} >=60 [facility] Globulin Calc (S) [Mass/Vol] on 10-16-2023 Globulin (S) [Mass/Vol] 3.7 g/dL [facility] Hematocrit Auto (Bld) [Volum e fraction]on 10-16-2023 Hematocrit (Bld) [Volume fraction] 30.5 % Low 42.0-54.0 [facility] Hemoglobin [Mass/volume] in Bloodon 10-16-2023 Hemoglobin (Bld) [Mass/Vol] 10.2 g/dL Low 14.0-18.0 [facility] Laboratory - Chemistry and C hemistry - challengeon 10-16-2023 Albumin [Mass/Vol] 2.9 g/dL Low 3.4-5.0 [facility] ALP [Catalytic activity/Vol] 98 U/L 46-116 [facility] ALT [Catalytic activity/Vol] 45 U/L 16-63 [facility] AST [Catalytic activity/Vol] 19 U/L 15-37 [facility] Bilirubin [Mass/Vol] 0.8 mg/dL 0.2-1.[address] [facility] Calcium [Mass/Vol] 8.3 mg/dL Low 8.5-10.1 [facility] Chloride [Moles/Vol] 97 mmol/L Low 98-[address] [facility] CO2 [Moles/Vol] 31.7 mmol/L 21.0-32.0 [facility] Creatinine [Mass/Vol] 0.84 mg/dL 0.70-1.[address] [facility] GFR/1.73 sq M.predicted MDRD (S/P/Bld) [Vol rate/Area] mL/min/{1.73_m2} >=60 [facility] Glucose [Mass/Vol] 94 mg/dL 74-106 [facility] Natriuretic peptide B (Bld) [Mass/Vol] 4170.0 pg/mL High <=1800.0 [facility] Comment on above: RESULTS CALLED TO PRECIOUS MURPHY RN Potassium [Moles/Vol] 3.5 mmol/L 3.5-5.[address] [facility] Protein [Mass/Vol] 6.6 g/dL 6.4-8.2 [facility] Sodium [Moles/Vol] 132 mmol/L Low 136-145 [facility] Urea nitrogen [Mass/Vol] 31.0 mg/dL High 7.0-18.0 [facility] Urea nitrogen/Creatinine [Mass ratio] 36.9 mg/mg [facility] Laboratory - Hematology and Cell countson 10-16-2023 Lymphocytes/100 WBC (Bld) 12.0 % Low 20.5-60.0 [facility] Monocytes/100 WBC (Bld) 11.0 % 1.7-12.0 [facility] Immature granulocytes/100 WBC (Bld) 0.3 % 0.0-0.5 [facility] Leukocytes [#/volume] correc shyann for nucleated erythrocytes in Blood by Automated counon 10-16-2023 WBC corrected for nucl RBC Auto (Bld) [#/Vol] 11.6 10 3/uL High 4.0-11.0 [facility] Lymphocytes Auto (Bld) [#/Vo l]on 10-16-2023 Lymphocytes (Bld) [#/Vol] 1.4 10 3/uL 1.2-3.8 [facility] Lymphocytes/100 WBC Auto (Bl d)on 10-16-2023 Lymphocytes/100 WBC (Bld) 14.6 % Low 20.5-60.0 [facility] MCH Auto (RBC) [Entitic mass ]on 10-16-2023 MCH (RBC) [Entitic mass] 30.4 pg 25.9-34.0 [facility] MCHC Auto (RBC) [Mass/Vol]on 10-16-2023 MCHC (RBC) [Mass/Vol] 33.4 g/dL 29.9-35.[address] [facility] MCV Auto (RBC) [Entitic vol] on 10-16-2023 MCV (RBC) [Entitic vol] 91.0 fL 80.0-94.0 [facility] Monocytes Auto (Bld) [#/Vol] on 10-16-2023 Monocytes (Bld) [#/Vol] 1.1 10 3/uL High 0.3-0.8 [facility] Monocytes/100 WBC Auto (Bld) on 10-16-2023 Monocytes/100 WBC (Bld) 12.3 % High 1.7-12.0 [facility] Neutrophils Auto (Bld) [#/Vo l]on 10-16-2023 Neutrophils (Bld) [#/Vol] 6.7 10 3/uL High 1.4-6.5 [facility] Neutrophils/100 WBC Auto (Bl d)on 10-16-2023 Neutrophils/100 WBC (Bld) 72.3 % 43.0-75.0 [facility] No Panel Informationon 10-15 Absolute Basophils (Manual) 0.11 10 3/uL High 0.00-0.10 [facility] Eosinophils # (Manual) 0.00 10 3/uL 0.00-0.70 [facility] Lymphocytes # (Manual) 1.39 10 3/uL 1.20-3.80 [facility] Monocytes # (Manual) 1.27 10 3/uL High 0.30-0.80 [facility] Segmented Neutrophils # (Manual) 8.81 10 3/uL High 1.4-6.5 [facility] Aerobic Culture Result 1 \R\ Result 3\R\ ELECTRICIAN OUTSIDE [facility] Comment on above: [facility], Aerobic Culture Result 2 \R\ Result 4\R\ ELECTRICIAN OUTSIDE [facility] Comment on above: [facility], Gram Stain Comment (LAB) [facility] Gram Stain Result 1 Positive [facility] Comment on above: [facility], Gram Stain Result 2 Negative [facility] Comment on above: [facility], Miscellaneous Test Comment See comment [facility] Comment on above: Specimen Source: S - Sputum - Sputum - 300.100 Sputum Other Cells \R\ White Blood Cells [facility] Sputum Other Cells 2 \R\ Epithelial Cell s\R\ Few [facility] Comment on above: [facility], Eosinophils # (Auto) 0.0 10 3/uL 0.0-0.[address] [facility] Immature Granulocyte # (Auto) 0.03 10 3/uL 0.00-0.03 [facility] Troponin I High Sensitivity 209.6 pg/mL High 4.0-76.1 [facility] Comment on above: RESULTS CALLED TO [...] volume (Bld) [Entitic vol] 9.5 fL 9.5-13.5 [facility] Platelets Auto (Bld) [#/Vol] on 10-16-2023 Platelets (Bld) [#/Vol] 240 10 3/uL 150-450 [facility] RBC Auto (Bld) [#/Vol]on RBC (Bld) [#/Vol] 3.35 10 6/uL Low 4.70-6.10 [facility] Segmented neutrophils/100 WB C Manual cnt (Bld)on 10-16-2023 Segmented neutrophils/100 WBC (Bld) 76.0 % High 43.0-75.0 [facility] Serum or plasma albumin/glob ulin mass ratioon 10-16-2023 Albumin/Globulin [Mass ratio] 0.8 {ratio} [facility] Serum or plasma anion gap de terminationon 10-16-2023 Anion gap [Moles/Vol] 6.8 mmol/L [facility] Basophils Auto (Bld) [#/Vol] on 10-15-2023 Basophils (Bld) [#/Vol] 0.0 10 3/uL 0.0-0.1 [facility] Basophils/100 WBC Auto (Bld) on 10-15-2023 Basophils/100 WBC (Bld) 0.0 % Low 0.2-2.0 [facility] Cholesterol in LDL Calc [Mas s/Vol]on 10-15-2023 Cholesterol in LDL [Mass/Vol] 39.0 mg/dL [facility] Comment on above: <100 mg/dl [id number] 0-129 mg/dl NEAR OR ABOVE [id number] mg/dl BORDERLINE [id number] mg/dl HIGH>190 mg/dl VERY HIGH Cholesterol in VLDL Calc [Ma ss/Vol]on 10-15-2023 Cholesterol in VLDL [Mass/Vol] 11.2 mg/dL [facility] Eosinophils/100 WBC Auto (Bl d)on 10-15-2023 Eosinophils/100 WBC (Bld) 0.0 % Low 0.9-7.0 [facility] Erythrocyte distribution wid th Auto (RBC) [Ratio]on 10-15-2023 Erythrocyte distribution width (RBC) [Ratio] 12.4 % 11.0-15.0 [facility] Estimated glomerular filtrat ion rate (GFR) non- Americanon 10-15-2023 GFR/1.73 sq M.predicted among non-blacks MDRD (S/P/Bld) [Vol rate/Area] mL/min/{1.73_m2} >=60 [facility] Globulin Calc (S) [Mass/Vol] on 10-15-2023 Globulin (S) [Mass/Vol] 3.5 g/dL [facility] Hematocrit Auto (Bld) [Volum e fraction]on 10-15-2023 Hematocrit (Bld) [Volume fraction] 28.8 % Low 42.0-54.0 [facility] Hemoglobin [Mass/volume] in Bloodon 10-15-2023 Hemoglobin (Bld) [Mass/Vol] 9.6 g/dL Low 14.0-18.0 [facility] Laboratory - Chemistry and C hemistry - challengeon 10-15-2023 Albumin [Mass/Vol] 2.9 g/dL Low 3.4-5.0 [facility] ALP [Catalytic activity/Vol] 100 U/L 46-116 [facility] ALT [Catalytic activity/Vol] 50 U/L 16-63 [facility] AST [Catalytic activity/Vol] 27 U/L 15-37 [facility] Bilirubin [Mass/Vol] 0.8 mg/dL 0.2-1.[address] [facility] Calcium [Mass/Vol] 8.7 mg/dL 8.5-10.1 [facility] Chloride [Moles/Vol] 99 mmol/L 98-[address] [facility] Cholesterol [Mass/Vol] 89 mg/dL <=200 [facility] Cholesterol in HDL [Mass/Vol] 39 mg/dL Low 40-60 [facility] Comment on above: > or =60 mg/dl - LOW CARDIOVASCULAR RISK<40 mg/dl - HIGH CARDIOVASCULAR RISK CO2 [Moles/Vol] 26.8 mmol/L 21.0-32.0 [facility] Creatinine [Mass/Vol] 0.83 mg/dL 0.70-1.[address] [facility] GFR/1.73 sq M.predicted MDRD (S/P/Bld) [Vol rate/Area] mL/min/{1.73_m2} >=60 [facility] Glucose [Mass/Vol] 137 mg/dL High 74-106 [facility] Magnesium [Mass/Vol] 1.6 mg/dL Low 1.8-2.[address] [facility] Potassium [Moles/Vol] 3.9 mmol/L 3.5-5.[address] [facility] Protein [Mass/Vol] 6.4 g/dL 6.4-8.2 [facility] Sodium [Moles/Vol] 134 mmol/L Low 136-145 [facility] Triglyceride [Mass/Vol] 56 mg/dL <=150 [facility] TSH Qn 0.543 m[IU]/L 0.358-3.74 0 [facility] Urea nitrogen [Mass/Vol] 20.0 mg/dL High 7.0-18.0 [facility] Urea nitrogen/Creatinine [Mass ratio] 24.1 mg/mg [facility] Laboratory - Hematology and Cell countson 10-15-2023 Immature granulocytes/100 WBC (Bld) 0.4 % 0.0-0.5 [facility] Leukocytes [#/volume] correc shyann for nucleated erythrocytes in Blood by Automated counon 10-15-2023 WBC corrected for nucl RBC Auto (Bld) [#/Vol] 8.2 10 3/uL 4.0-11.0 [facility] Lymphocytes Auto (Bld) [#/Vo l]on 10-15-2023 Lymphocytes (Bld) [#/Vol] 0.8 10 3/uL Low 1.2-3.8 [facility] Lymphocytes/100 WBC Auto (Bl d)on 10-15-2023 Lymphocytes/100 WBC (Bld) 9.2 % Low 20.5-60.0 [facility] MCH Auto (RBC) [Entitic mass ]on 10-15-2023 MCH (RBC) [Entitic mass] 30.3 pg 25.9-34.0 [facility] MCHC Auto (RBC) [Mass/Vol]on 10-15-2023 MCHC (RBC) [Mass/Vol] 33.3 g/dL 29.9-35.[address] [facility] MCV Auto (RBC) [Entitic vol] on 10-15-2023 MCV (RBC) [Entitic vol] 90.9 fL 80.0-94.0 [facility] Monocytes Auto (Bld) [#/Vol] on 10-15-2023 Monocytes (Bld) [#/Vol] 0.7 10 3/uL 0.3-0.8 [facility] Monocytes/100 WBC Auto (Bld) on 10-15-2023 Monocytes/100 WBC (Bld) 9.0 % 1.7-12.0 [facility] Neutrophils Auto (Bld) [#/Vo l]on 10-15-2023 Neutrophils (Bld) [#/Vol] 6.7 10 3/uL High 1.4-6.5 [facility] Neutrophils/100 WBC Auto (Bl d)on 10-15-2023 Neutrophils/100 WBC (Bld) 81.4 % High 43.0-75.0 [facility] No Panel Informationon 10-14 Troponin I High Sensitivity 214.0 pg/mL High 4.0-76.1 [facility] Comment on above: RESULTS CALLED TO Josue Elaine (RN)@BY Adalgisa Doherty,CONTACT LENS POLISHER at 2236CUT-OFF POINTS HAVE BEEN ESTABLISHED BASED [...] Eosinophils # (Auto) 0.0 10 3/uL 0.0-0.[address] [facility] Immature Granulocyte # (Auto) 0.03 10 3/uL 0.00-0.03 [facility] Platelet mean volume Auto (B ld) [Entitic vol]on 10-15-2023 Platelet mean volume (Bld) [Entitic vol] 10.1 fL 9.5-13.5 [facility] Platelets Auto (Bld) [#/Vol] on 10-15-2023 Platelets (Bld) [#/Vol] 152 10 3/uL 150-450 [facility] RBC Auto (Bld) [#/Vol]on RBC (Bld) [#/Vol] 3.17 10 6/uL Low 4.70-6.10 [facility] Serum or plasma albumin/glob ulin mass ratioon 10-15-2023 Albumin/Globulin [Mass ratio] 0.8 {ratio} [facility] Serum or plasma anion gap de terminationon 10-15-2023 Anion gap [Moles/Vol] 12.1 mmol/L [facility] Serum or plasma total choles terol/high density lipoprotein (HDL) cholesterol mass lalo 10-15-2023 Cholesterol.total/Chol esterol in HDL [Mass ratio] 2.3 {ratio} [facility] Comment on above: 3.3 - 4.4 [...] he doesn't feel as weak. Per Dr. Brynat - see if pt can get in with his PCP today, if not then she would recommend that he go to the E.R. He may need to start on a water pill. Pt's was notified. She will call PCP to see if they can get an appt today and if not, then she will take him to the E.R. in [place]. 1:48 pm - pt's called back to let us know that she took pt to [place] E[facility] and he was dx'd with atrial [...] a time. Dr. Bryant was updated. Normal [facility] Activated partial thrombopla stin time (aPTT) in platelet poor plasma by coagulation aon 10-14-2023 aPTT Coag (PPP) [Time] 30.8 s 22.3-36.2 [facility] Basophils Auto (Bld) [#/Vol] on 10-14-2023 Basophils (Bld) [#/Vol] 0.0 10 3/uL 0.0-0.1 [facility] Basophils/100 WBC Auto (Bld) on 10-14-2023 Basophils/100 WBC (Bld) 0.1 % Low 0.2-2.0 [facility] Eosinophils/100 WBC Auto (Bl d)on 10-14-2023 Eosinophils/100 WBC (Bld) 0.1 % Low 0.9-7.0 [facility] Erythrocyte distribution wid th Auto (RBC) [Ratio]on 10-14-2023 Erythrocyte distribution width (RBC) [Ratio] 12.2 % 11.0-15.0 [facility] Estimated glomerular filtrat ion rate (GFR) non- Americanon 10-14-2023 GFR/1.73 sq M.predicted among non-blacks MDRD (S/P/Bld) [Vol rate/Area] mL/min/{1.73_m2} >=60 [facility] Hematocrit Auto (Bld) [Volum e fraction]on 10-14-2023 Hematocrit (Bld) [Volume fraction] 31.6 % Low 42.0-54.0 [facility] Hemoglobin [Mass/volume] in Bloodon 10-14-2023 Hemoglobin (Bld) [Mass/Vol] 10.6 g/dL Low 14.0-18.0 [facility] INR in Platelet poor plasma by Coagulation assayon 10-14-2023 INR Coag (PPP) [Relative time] 1.11 {INR} [facility] Comment on above: DESIRED INR:2.0-3.0 CONDITIONS NOT LISTED BELOW2.5-3.5 FOR PROSTHETIC HEART VALVE REPLACEMENT2.5-3.5 [facility] Laboratory - Chemistry and C hemistry - challengeon 10-14-2023 Natriuretic peptide B (Bld) [Mass/Vol] 9227.0 pg/mL High <=1800.0 [facility] Comment on above: RESULTS CALLED TO KENDELL LOMBARDI/SHAREE IN ICU Calcium [Mass/Vol] 8.6 mg/dL 8.5-10.1 [facility] Chloride [Moles/Vol] 95 mmol/L Low 98-[address] [facility] CO2 [Moles/Vol] 24.6 mmol/L 21.0-32.0 [facility] Creatinine [Mass/Vol] 0.97 mg/dL 0.70-1.[address] [facility] GFR/1.73 sq M.predicted MDRD (S/P/Bld) [Vol rate/Area] mL/min/{1.73_m2} >=60 [facility] Glucose [Mass/Vol] 176 mg/dL High 74-106 [facility] Potassium [Moles/Vol] 4.1 mmol/L 3.5-5.[address] [facility] Sodium [Moles/Vol] 130 mmol/L Low 136-145 [facility] Urea nitrogen [Mass/Vol] 20.0 mg/dL High 7.0-18.0 [facility] Urea nitrogen/Creatinine [Mass ratio] 20.6 mg/mg [facility] Laboratory - Hematology and Cell countson 10-14-2023 Immature granulocytes/100 WBC (Bld) 0.4 % 0.0-0.5 [facility] Leukocytes [#/volume] correc shyann for nucleated erythrocytes in Blood by Automated counon 10-14-2023 WBC corrected for nucl RBC Auto (Bld) [#/Vol] 15.7 10 3/uL High 4.0-11.0 [facility] Lymphocytes Auto (Bld) [#/Vo l]on 10-14-2023 Lymphocytes (Bld) [#/Vol] 1.4 10 3/uL 1.2-3.8 [facility] Lymphocytes/100 WBC Auto (Bl d)on 10-14-2023 Lymphocytes/100 WBC (Bld) 9.1 % Low 20.5-60.0 [facility] MCH Auto (RBC) [Entitic mass ]on 10-14-2023 MCH (RBC) [Entitic mass] 30.8 pg 25.9-34.0 [facility] MCHC Auto (RBC) [Mass/Vol]on 10-14-2023 MCHC (RBC) [Mass/Vol] 33.5 g/dL 29.9-35.[address] [facility] MCV Auto (RBC) [Entitic vol] on 10-14-2023 MCV (RBC) [Entitic vol] 91.9 fL 80.0-94.0 [facility] Monocytes Auto (Bld) [#/Vol] on 10-14-2023 Monocytes (Bld) [#/Vol] 1.5 10 3/uL High 0.3-0.8 [facility] Monocytes/100 WBC Auto (Bld) on 10-14-2023 Monocytes/100 WBC (Bld) 9.6 % 1.7-12.0 [facility] Neutrophils Auto (Bld) [#/Vo l]on 10-14-2023 Neutrophils (Bld) [#/Vol] 12.7 10 3/uL High 1.4-6.5 [facility] Neutrophils/100 WBC Auto (Bl d)on 10-14-2023 Neutrophils/100 WBC (Bld) 80.7 % High 43.0-75.0 [facility] No Panel Informationon 10-13 Troponin I High Sensitivity 279.3 pg/mL High 4.0-76.1 [facility] Comment on above: RESULTS CALLED TO [...] Eosinophils # (Auto) 0.0 10 3/uL 0.0-0.[address] [facility] Immature Granulocyte # (Auto) 0.07 10 3/uL High 0.00-0.03 [facility] Platelet mean volume Auto (B ld) [Entitic vol]on 10-14-2023 Platelet mean volume (Bld) [Entitic vol] 10.1 fL 9.5-13.5 [facility] Platelets Auto (Bld) [#/Vol] on 10-14-2023 Platelets (Bld) [#/Vol] 191 10 3/uL 150-450 [facility] Prothrombin time (PT)on PT Coag (PPP) [Time] 11.6 s 9.0-11.[address] [facility] RBC Auto (Bld) [#/Vol]on RBC (Bld) [#/Vol] 3.44 10 6/uL Low 4.70-6.10 [facility] Serum or plasma anion gap de terminationon 10-14-2023 Anion gap [Moles/Vol] 14.5 mmol/L [facility] Telephoneon 10-14-[phone] 1940 M Date Provider Department Center 10/14/2023 NICOLE PEOPLES ONC DCC Family History Problem Relation Age of Onset Heart disease Mother No Known Problems Father No Known Problems Sister Family Status - Relation Status Age at Mother Father Sister Alive Reason for Visit and Comments: Shortness of Breath [[id number]] Normal [facility] 30on 10-13-2023 30 Problem: Neurosensor y - [...] lifting and knowing s/s for infection. Normal [facility] 30 Daily Case Managemen t Update [...] PT Recommendations: OT Recommendations: New Consults: Normal [facility] CBCon 10-13-2023 Erythrocyte distribution width (RBC) [Ratio] 12.6 % Normal 11.5-15.0 [facility] Comment on above: Performed By: #### L [id number] #### [facility] ([facility]) [address] [place] [address] ERYTHROCYTE MEAN CORPUSCULAR HEMOGLOBIN CONCENTRATION (G/DL) BY AUTOMATED 33.0 g/dL Normal 32.0-35.0 [facility] Comment on above: Performed By: #### L [id number] #### [facility] ([facility]) [address] [place] [address] Hematocrit (Bld) [Volume fraction] 29.4 % Low 39.0-55.0 [facility] Comment on above: Performed By: #### L [id number] #### [facility] ([facility]) [address] [place] [address] Hemoglobin (Bld) [Mass/Vol] 9.7 g/dL Low 13.0-17.0 [facility] Comment on above: Performed By: #### L [id number] #### [facility] [address] [place] [address] MCH (RBC) [Entitic mass] 30.9 pg Normal 27.0-33.0 [facility] Comment on above: Performed By: #### L [id number] #### [facility] [address] [place] [address] MCV (RBC) [Entitic vol] 93.6 fL Normal 82.0-98.0 [facility] Comment on above: Performed By: #### L [id number] #### [facility] ([facility]) [address] [place] [address] PLATELETS (10*3/UL) IN BLOOD AUTOMATED COUNT 141 10*3/uL Low 150-400 [facility] Comment on above: Performed By: #### L [id number] #### [facility] [address] [place] [address] RBC (Bld) [#/Vol] 3.14 10*6/uL Low 4.20-5.70 [facility] Comment on above: Performed By: #### L [id number] #### [facility] ([facility]) [address] [place] [address] WBC (Bld) [#/Vol] 14.01 10*3/uL High 4.00-10.60 [facility] Comment on above: Performed By: #### L [id number] #### [facility] ([facility]) [address] [place] [address] COMPREHENSIVE METABOLIC PANE [place]anto 10-13-2023 Albumin [Mass/Vol] 3.4 g/dL Low 3.5-5.7 [facility] Comment on above: Performed By: #### L [id number] ####[facility] ([facility])[address] [place] [address] ALP [Catalytic activity/Vol] 89 U/L Normal 34-104 [facility] Comment on above: Performed By: #### L [id number] ####[facility] ([facility])[address] [place] [address] ALT [Catalytic activity/Vol] 52 U/L Normal 7-52 [facility] Comment on above: Performed By: #### L [id number] ####[facility] ([facility])[address] [place] [address] Anion gap [Moles/Vol] 12 mmol/L Normal 7-20 [facility] Comment on above: Performed By: #### L [id number] ####[facility] ([facility])[address] [place] [address] AST [Catalytic activity/Vol] 60 U/L High 13-39 [facility] Comment on above: Performed By: #### L [id number] ####[facility] [place] [address] Bilirubin [Mass/Vol] 0.8 mg/dL Normal 0.3-1.0 [facility] Comment on above: Performed By: #### L [id number] ####[facility] ([facility])[address] [place] [address] Calcium [Mass/Vol] 8.3 mg/dL Low 8.6-10.3 [facility] Comment on above: Performed By: #### L [id number] ####[facility] ([facility])[address] [place] [address] Chloride [Moles/Vol] 104 mmol/L Normal 98-107 [facility] Comment on above: Performed By: #### L [id number] ####[facility] ([facility])[address] [place] [address] CO2 [Moles/Vol] 22 mmol/L Normal 21-31 [facility] Comment on above: Performed By: #### L [id number] ####[facility] ([facility])[address] [place] [address] Creatinine [Mass/Vol] 0.74 mg/dL Normal 0.70-1.30 [facility] Comment on above: Performed By: #### L [id number] ####[facility] [place] [address] GLOMERULAR FILTRATION RATE ML/MIN/1.73 SQ M.PREDICTED 91.0 mL/min/1.73m*2 Normal >60.0 [facility] Comment on above: Result Comment: The [facility]???s estimated glomerular filtration rate (eGFR) will [...] of individuals. Performed By: #### L [id number] ####[facility] [place] [address] Glucose [Mass/Vol] 116 mg/dL High 70-100 [facility] Comment on above: Performed By: #### L [id number] ####[facility] [place] [address] Potassium [Moles/Vol] 4.4 mmol/L Normal 3.5-5.1 [facility] Comment on above: Performed By: #### L [id number] ####[facility] ([facility])[address] [place] [address] Protein [Mass/Vol] 5.9 g/dL Low 6.0-8.3 [facility] Comment on above: Performed By: #### L [id number] ####[facility] ([facility])[address] [place] [address] Sodium [Moles/Vol] 134 mmol/L Low 136-145 [facility] Comment on above: Performed By: #### L [id number] ####[facility] ([facility])[address] [place] [address] Urea nitrogen [Mass/Vol] 17 mg/dL Normal 7-25 [facility] Comment on above: Performed By: #### L [id number] ####[facility] ([facility])[address] [place] [address] UREA NITROGEN/CREATININE (MASS RATIO) IN SER/PLAS 23.0 Normal [facility] Comment on above: Performed By: #### L [id number] ####[facility] ([facility])[address] [place] [address] DSon 10-13-2023 DS Admission Admitted 10/12/2023 for [...] Your Medications These medications were sent to [facility]/pharmacy #[id number] [place] [address] acetaminophen 500 mg tablet aspirin 81 mg [...] is performed under the ED CLIA certificate #[id number]. ARTERIAL BLOOD GAS WITH CO-OXIMETRY - Abnormal [...] HCO3 POC (more content not included)... Normal [facility] MAGNESIUMon 10-13-2023 Magnesium [Mass/Vol] 1.5 mg/dL Low 1.9-2.7 [facility] Comment on above: Performed By: #### L [id number] ####[facility] ([facility])[address] [place] [address] PHOSPHORUSon 10-13-2023 Magnesium [Mass/Vol] 4.2 mg/dL Normal 2.5-5.0 [facility] Comment on above: Performed By: #### L [id number] #### [facility] ([facility]) [address] [place] [address] PROTIME-INRon 10-13-2023 INR IN PPP BY COAGULATION ASSAY 1.17 High 0.90-1.10 [facility] Comment on above: Result Comment: ACCC [...] 1995;[id number]. Performed By: #### L [id number] #### [facility] ([facility]) [address] [place] [address] PROTHROMBIN TIME (PT) IN PPP BY COAGULATION ASSAY 14.8 Seconds Normal 12.3-14.8 [facility] Comment on above: Performed By: #### L [id number] #### [facility] ([facility]) [address] [place] [address] 30on 10-12-2023 30 The patient is Moder [...] these barriers include post-op monitoring . Normal [facility] 30 Daily Case Managemen t Update [...] appropriate for patient?: Yes New Consults: Normal [facility] APTTon 10-12-2023 ACTIVATED PARTIAL THROMBOPLASTIN TIME IN PPP BY COAGULATION ASSAY 32.1 Seconds Normal 25.0-35.0 [facility] Comment on above: Order Comment: In PA CU Result Comment: Clin ical significance of the APTT is questionable in the presence of heparin. Performed By: #### L [id number] #### [facility] ([facility]) [address] [place] [address] ARTERIAL BLOOD GAS WITH CO-O XIMETRYon 10-12-2023 Base excess Calc (Bld) [Moles/Vol] -4.3000 mmol/L Low -2.0-3.0 [facility] Comment on above: Order Comment: In PA CU Performed By: #### L [id number] #### [facility] [address] [place] [address] [place] CARBOXYHEMOGLOBIN/HEMO GLOBIN TOTAL % IN BLOOD 1.2 % Normal 0.0-3.0 [facility] Comment on above: Order Comment: In PA CU Performed By: #### L [id number] #### [facility] [address] [place] [address] [place] CO2 (Bld) [Partial pressure] 42 mm[Hg] Normal 35-48 [facility] Comment on above: Order Comment: In PA CU Performed By: #### L [id number] #### [facility] [address] [place] [address] [place] DEOXYGENATED HEMOGLOBIN IN BLOOD 0.3 % Low 1-5 [facility] Comment on above: Order Comment: In PA CU Performed By: #### L [id number] #### [facility] [address] [place] [address] [place] HCO3 (Bld) [Moles/Vol] 21.6 mmol/L Normal 21.0-28.[address] [facility] Comment on above: Order Comment: In PA CU Performed By: #### L [id number] #### [facility] [address] [place] [address] [place] Hemoglobin (Bld) [Mass/Vol] 9.5 g/dL Low 11.7-17.4 [facility] Comment on above: Order Comment: In PA CU Performed By: #### L [id number] #### [facility] [address] [place] [address] [place] LPM 4 Normal [facility] Comment on above: Order Comment: In PA CU Performed By: #### L [id number] #### [facility] [address] [place] [address] [place] METHEMOGLOBIN/100 IN BLOOD 0.0 % Normal 0.0-1.5 [facility] Comment on above: Order Comment: In PA CU Performed By: #### L [id number] #### [facility] [address] [place] [address] [place] Oxygen (Bld) [Partial pressure] 137 mm[Hg] High 83-100 [facility] Comment on above: Order Comment: In PA CU Performed By: #### L [id number] #### [facility] [address] [place] [address] [place] OXYGEN SATURATION (%) IN ARTERIAL BLOOD 99.7 % High 94.0-98.0 [facility] Comment on above: Order Comment: In PA CU Performed By: #### L [id number] #### [facility] [address] [place] [address] [facility] OXYGENATED HEMOGLOBIN IN BLOOD 98.4 % High 90.0-95.0 [facility] Comment on above: Order Comment: In PA CU Performed By: #### L [id number] #### [facility] [address] [place] [address] [place] pH (Bld) 7.32 [pH] Low 7.35-7.45 [facility] Comment on above: Order Comment: In PA CU Performed By: #### L [id number] #### [facility] [address] [place] [address] [place] SOURCE OF OXYGEN Nasal cannula Normal [facility] Comment on above: Order Comment: In PA CU Performed By: #### L [id number] #### [facility] [address] [place] [address] [place] CBCon 10-12-2023 Erythrocyte distribution width (RBC) [Ratio] 12.5 % Normal 11.5-15.0 [facility] Comment on above: Order Comment: In PA CU Performed By: #### L [id number] #### [facility] ([facility]) [address] [place] [address] ERYTHROCYTE MEAN CORPUSCULAR HEMOGLOBIN CONCENTRATION (G/DL) BY AUTOMATED 32.4 g/dL Normal 32.0-35.0 [facility] Comment on above: Order Comment: In PA CU Performed By: #### L [id number] #### [facility] [address] [place] [address] Hematocrit (Bld) [Volume fraction] 28.4 % Low 39.0-55.0 [facility] Comment on above: Order Comment: In PA CU Performed By: #### L [id number] #### [facility] ([facility]) [address] [place] [address] Hemoglobin (Bld) [Mass/Vol] 9.2 g/dL Low 13.0-17.0 [facility] Comment on above: Order Comment: In PA CU Performed By: #### L [id number] #### [facility] ([facility]) [address] [place] [address] MCH (RBC) [Entitic mass] 30.6 pg Normal 27.0-33.0 [facility] Comment on above: Order Comment: In PA CU Performed By: #### L [id number] #### [facility]) [address] [place] [address] MCV (RBC) [Entitic vol] 94.4 fL Normal 82.0-98.0 [facility] Comment on above: Order Comment: In PA CU Performed By: #### L [id number] #### [facility] [address] [place] [address] PLATELETS (10*3/UL) IN BLOOD AUTOMATED COUNT 130 10*3/uL Low 150-400 [facility] Comment on above: Order Comment: In [place] CU Performed By: #### L [id number] #### [facility] [address] [place] [address] RBC (Bld) [#/Vol] 3.01 10*6/uL Low 4.20-5.70 [facility] Comment on above: Order Comment: In [place] CU Performed By: #### L [id number] #### [facility] [address] [place] [address] WBC (Bld) [#/Vol] 10.46 10*3/uL Normal 4.00-10.60 [facility] Comment on above: Order Comment: In PA CU Performed By: #### L [id number] #### [facility] ([facility]) [address] [place] [address] COMPREHENSIVE METABOLIC PANE Santo 10-12-2023 Albumin [Mass/Vol] 3.3 g/dL Low 3.5-5.7 [facility] Comment on above: Order Comment: In PA CU Performed By: #### L [id number] ####[facility] ([facility])[address] [place] [address] ALP [Catalytic activity/Vol] 84 U/L Normal 34-104 [facility] Comment on above: Order Comment: In PA CU Performed By: #### L [id number] ####[facility] ([facility])[address] [place] [address] ALT [Catalytic activity/Vol] 53 U/L High 7-52 [facility] Comment on above: Order Comment: In PA CU Performed By: #### L [id number] ####[facility] ([facility])[address] [place] [address] Anion gap [Moles/Vol] 11 mmol/L Normal 7-20 [facility] Comment on above: Order Comment: In PA CU Performed By: #### L [id number] ####[facility] ([facility])[address] [place] [address] AST [Catalytic activity/Vol] 63 U/L High 13-39 [facility] Comment on above: Order Comment: In PA CU Performed By: #### L [id number] ####[facility] ([facility])[address] [place] [address] Bilirubin [Mass/Vol] 0.9 mg/dL Normal 0.3-1.0 [facility] Comment on above: Order Comment: In PA CU Performed By: #### L [id number] ####[facility] ([facility])[address] [place] [address] Calcium [Mass/Vol] 7.9 mg/dL Low 8.6-10.3 [facility] Comment on above: Order Comment: In PA CU Performed By: #### L [id number] ####[facility] ([facility])[address] [place] [address] Chloride [Moles/Vol] 107 mmol/L Normal 98-107 [facility] Comment on above: Order Comment: In PA CU Performed By: #### L [id number] ####[facility] ([facility])[address] [place] [address] CO2 [Moles/Vol] 22 mmol/L Normal 21-31 [facility] Comment on above: Order Comment: In PA CU Performed By: #### L [id number] ####[facility] ([facility])[address] [place] [address] Creatinine [Mass/Vol] 0.73 mg/dL Normal 0.70-1.30 [facility] Comment on above: Order Comment: In PA CU Performed By: #### L [id number] ####[facility] [place] [address] GLOMERULAR FILTRATION RATE ML/MIN/1.73 SQ M.PREDICTED 91.4 mL/min/1.73m*2 Normal >60.0 [facility] Comment on above: Order Comment: In PA CU Result Comment: The [facility]???s estimated glomerular filtration rate (eGFR) will [...] of individuals. Performed By: #### L [id number] ####[facility] ([facility])[address] [place] [address] Glucose [Mass/Vol] 160 mg/dL High 70-100 [facility] Comment on above: Order Comment: In PA CU Performed By: #### L [id number] ####[facility] ([facility])[address] [place] [address] Potassium [Moles/Vol] 4.4 mmol/L Normal 3.5-5.[address] [facility] Comment on above: Order Comment: In PA CU Performed By: #### L [id number] ####[facility] ([facility])[address] [place] [address] Protein [Mass/Vol] 5.7 g/dL Low 6.0-8.3 [facility] Comment on above: Order Comment: In PA CU Performed By: #### L [id number] ####[facility] ([facility])[address] [place] [address] Sodium [Moles/Vol] 136 mmol/L Normal 136-145 [facility] Comment on above: Order Comment: In PA CU Performed By: #### L [id number] ####[facility] ([facility])[address] [place] [address] Urea nitrogen [Mass/Vol] 18 mg/dL Normal 7-25 [facility] Comment on above: Order Comment: In PA CU Performed By: #### L [id number] ####[facility] ([facility])[address] [place] [address] UREA NITROGEN/CREATININE (MASS RATIO) IN SER/PLAS 24.7 Normal [facility] Comment on above: Order Comment: In PA CU Performed By: #### L [id number] ####[facility] ([facility])[address] [place] [address] HISTOLOGY - TISSUE EXAMon LAB AP CASE REPORT Normal [facility] Comment on above: Order Comment: 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] Result Comment: Surg ical Pathology Case: [id number] Authorizing Provider: Amber Bryant MD Collected: 10/12/2023 1204 Ordering Location: [facility] Main Operating Room Received: 10/12/2023 1233 Pathologist: Marya Hudson MD Intraop: Luana Rivas MD Specimens: A) - Common Bile Duct, CYSTIC DUCT MARGIN B) - Gallbladder, GALLBLADDER AND PORTION OF SEGMENT 4/5 Performed By: #### L [id number] ####[facility] ([facility])[address] [place] [address] LAB AP CLINICAL INFORMATION Normal [facility] Comment on above: Order Comment: 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 C ommon Bile Duct. Resulted 12:53 PM 10/12/23 Gallbladder, cystic duct margin, biopsy: - No malignancy identified Intraoperative Consultation by: Luana Rivas MD B. Gallbladder. Resulted 2:58 pm 10/12/23 Gallbladder, cholecystectomy: - No malignancy identified Intraoperative Consultation by: Luana Rivas MD Performed By: #### L [id number] ####[facility] ([facility])[address] [place] [address] LAB AP MICROSCOPIC DESCRIPTION Microscopic examination performed. 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 Performed By: #### L [id number] ####[facility] ([facility])[address] [place] [address] HPon 10-12-2023 HP H&P reviewed. The pa tient was examined and there are no changes to the H&P. 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] Post-op Diagnosis * 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] Procedures Robot-Assisted Cholecystectomy with 93200 - DE LAPAROSCOPY SURG CHOLECYSTECTOMY Intraoperative Ultrasound and 76278 - DE UNLISTED LAPAROSCOPIC PROCEDURE LIVER PArtial Liver Resection of segement 06/10 24758 - DE UNLISTED LAPAROSCOPIC PROCEDURE LIVER Surgeons Primary: Amber [...] Amber Bryant MD 10/12/23 1204 Yes STAT [id number] Description: CYSTIC DUCT MARGIN B Gallbladder Tissue HISTOLOGY - TISSUE EXAM Amber Bryant MD 10/12/23 1403 Yes STAT [id number] Staff: Pigment Grinder: Woody Massey, RN; Lukas Chacon, RN; Felicity Judge, RN Relief Scrub: Rachel Martinez CST Scrub Person: Faby Garcia, LAUREN; Rachel Martinez SLAT GRADER Indications: Chico Baker is an 83 y.o. 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 Following this the 5 mm [...] The ultrasound was brought in through the microbiology lab assistant port. Intraoperative ultrasonography of the gallbladder was undertaken examining the entire gallbladder in both its longitudinal and transverse (more content not included)... Normal [facility] PHOSPHORUSon 10-12-2023 Magnesium [Mass/Vol] 3.5 mg/dL Normal 2.5-5.0 [facility] Comment on above: Order Comment: In PA CU Performed By: #### L [id number] #### [facility] ([facility]) [address] [place] [address] POCT GLUCOSE METER UNSOLICIT ED RESULTSon 10-12-2023 Glucose [Mass/Vol] 115 mg/dL High 70-105 [facility] Comment on above: Order Comment: Waive d Testing in the ED is performed under the ED CLIA certificate #[id number]. Result Comment: spin zon Performed By: #### L [id number] ####[facility] ([facility])[address] [place] [address] POCT PERFUSION PANEL UNSOLIC ITED RESULTSon 10-12-2023 CO2 [Moles/Vol] 21.0 mmol/L Normal 21.0-29.0 [facility] Comment on above: Performed By: #### L [id number] ####[facility] ([facility])[address] [place] [address] Glucose [Mass/Vol] 132 mg/dL High 70-105 [facility] Comment on above: Performed By: #### L [id number] ####[facility] ([facility])[address] [place] [address] HCO3 (Bld) [Moles/Vol] 19.3 mmol/L Low 23.0-28.0 U [facility] Comment on above: Performed By: #### L [id number] ####[facility] ([facility])[address] [place] [address] Hematocrit (Bld) [Volume fraction] 24 % Low 38-51 [facility] Comment on above: Performed By: #### L [id number] ####[facility] ([facility])[address] [place] [address] Hemoglobin (Bld) [Mass/Vol] 8.2 g/dL Low 12.0-17.0 [facility] Comment on above: Performed By: #### L [id number] ####[facility] ([facility])[address] [place] [address] POCT BASE EXCESS -7.0 mmol/L Low -2.0-3.0 [facility] Comment on above: Performed By: #### L [id number] ####[facility] ([facility])[address] [place] [address] POCT IONIZED CALCIUM 1.11 mmol/L Low 1.12-1.32 [facility] Comment on above: Performed By: #### L [id number] ####[facility] ([facility])[address] [place] [address] POCT PCO2 43.3 mmHg Normal 41.0-51.0 [facility] Comment on above: Performed By: #### L [id number] ####[facility] ([facility])[address] [place] [address] POCT PH 7.26 Low 7.31-7.41 [facility] Comment on above: Performed By: #### L [id number] ####[facility] ([facility])[address] [place] [address] POCT PO2 224 mmHg High 80-105 [facility] Comment on above: Performed By: #### L [id number] ####[facility] ([facility])[address] [place] [address] POCT SO2 100 % High 95-98 [facility] Comment on above: Performed By: #### L [id number] ####[facility] ([facility])[address] [place] [address] Potassium [Moles/Vol] 4.0 mmol/L Normal 3.5-4.9 [facility] Comment on above: Performed By: #### L [id number] ####[facility] ([facility])[address] [place] [address] Sodium [Moles/Vol] 140 mmol/L Normal 138.0-146 . 0 [facility] Comment on above: Performed By: #### L [id number] ####[facility] ([facility])[address] [place] [address] CO2 [Moles/Vol] 21.0 mmol/L Normal 21.0-29.0 [facility] Comment on above: Performed By: #### L [id number] ####[facility] ([facility])[address] [place] [address] Glucose [Mass/Vol] 146 mg/dL High 70-105 [facility] Comment on above: Performed By: #### L [id number] ####[facility] ([facility])[address] [place] [address] HCO3 (Bld) [Moles/Vol] 19.6 mmol/L Low 23.0-28.[address] [facility] Comment on above: Performed By: #### L [id number] ####[facility] ([facility])[address] [place] [address] Hematocrit (Bld) [Volume fraction] 29 % Low 38-51 [facility] Comment on above: Performed By: #### L [id number] ####[facility] [place] [address] Hemoglobin (Bld) [Mass/Vol] 9.9 g/dL Low 12.0-17.0 [facility] Comment on above: Performed By: #### L [id number] ####[facility] ([facility])[address] [place] [address] POCT BASE EXCESS -5.0 mmol/L Low -2.0-3.0 [facility] Comment on above: Performed By: #### L [id number] ####[facility] ([facility])[address] [place] [address] POCT IONIZED CALCIUM 1.12 mmol/L Normal 1.12-1.32 [facility] Comment on above: Performed By: #### L [id number] ####[facility] ([facility])[address] [place] [address] POCT PCO2 33.9 mmHg Low 41.0-51.0 [facility] Comment on above: Performed By: #### L [id number] ####[facility] ([facility])[address] [address] POCT PH 7.37 Normal 7.31-7.41 [facility] Comment on above: Performed By: #### L [id number] ####[facility] ([facility] [address] POCT PO2 230 mmHg High 80-105 [facility] Comment on above: Performed By: #### L [id number] ####[facility] ([facility])[address] [address] POCT SO2 100 % High 95-98 [facility] Comment on above: Performed By: #### L [id number] ####[facility] ([facility] [address] Potassium [Moles/Vol] 4.2 mmol/L Normal 3.5-4.9 [facility] Comment on above: Performed By: #### L [id number] ####[facility] ([facility])[address] [place] [address] Sodium [Moles/Vol] 136 mmol/L Low 138.0-146 . 0 [facility] Comment on above: Performed By: #### L [id number] ####[facility] ([facility])[address] [place] [address] CO2 [Moles/Vol] 25.0 mmol/L Normal 21.0-29.0 [facility] Comment on above: Performed By: #### L [id number] ####[facility] ([facility])[address] [place] [address] Glucose [Mass/Vol] 162 mg/dL High 70-105 [facility] Comment on above: Performed By: #### L [id number] ####[facility] ([facility])[address] [place] [address] HCO3 (Bld) [Moles/Vol] 23.4 mmol/L Normal 23.0-28.[address] [facility] Comment on above: Performed By: #### L [id number] ####[facility] ([facility])[address] [place] [address] Hematocrit (Bld) [Volume fraction] 32 % Low 38-51 [facility] Comment on above: Performed By: #### L [id number] ####[facility] ([facility])[address] [place] [address] Hemoglobin (Bld) [Mass/Vol] 10.9 g/dL Low 12.0-17.0 [facility] Comment on above: Performed By: #### L [id number] ####[facility] ([facility])[address] [place] [address] POCT BASE EXCESS -2.0 mmol/L Normal -2.0-3.0 [facility] Comment on above: Performed By: #### L [id number] ####[facility] ([facility])[address] [place] [address] POCT IONIZED CALCIUM 1.20 mmol/L Normal 1.12-1.32 [facility] Comment on above: Performed By: #### L [id number] ####[facility] ([facility])[address] [place] [address] POCT PCO2 43.6 mmHg Normal 41.0-51.0 [facility] Comment on above: Performed By: #### L [id number] ####[facility] ([facility])[address] [place] [address] POCT PH 7.34 Normal 7.31-7.41 [facility] Comment on above: Performed By: #### L [id number] ####[facility] ([facility])[address] [place] [address] POCT PO2 225 mmHg High 80-105 [facility] Comment on above: Performed By: #### L [id number] ####[facility] ([facility])[address] [place] [address] POCT SO2 100 % High 95-98 [facility] Comment on above: Performed By: #### L [id number] ####[facility] ([facility])[address] [place] [address] Potassium [Moles/Vol] 4.4 mmol/L Normal 3.5-4.9 [facility] Comment on above: Performed By: #### L [id number] ####[facility] ([facility])[address] [place] [address] Sodium [Moles/Vol] 133 mmol/L Low 138.0-146 . 0 [facility] Comment on above: Performed By: #### L [id number] ####[facility] ([facility])[address] [place] [address] PROTIME-INRon 10-12-2023 INR IN PPP BY COAGULATION ASSAY 1.19 High 0.90-1.10 [facility] Comment on above: Order Comment: In [...] CHEST 1995;108:[id number]. Performed By: #### L [id number] ####[facility] ([facility])[address] [place] [address] PROTHROMBIN TIME (PT) IN PPP BY COAGULATION ASSAY 15.0 Seconds High 12.3-14.8 [facility] Comment on above: Order Comment: In PA CU Performed By: #### L [id number] ####[facility] ([facility])[address] [place] [address] HPon 10-06-2023 SURGERY FOLLOWUP NOT E Amber [...] temperature so (more content not included)... Normal [facility] Office Visiton 10-06-2023 Follow-up visit [id number] [address] 1940 M Date Provider Department Center 10/06/2023 [id number] BRYANT DCC ONC DCC Family History Problem Relation Age of Onset Heart disease Mother No Known Problems Father No Known Problems Sister Family Status - Relation Status Age at Mother Father Sister Alive Level of Service:90897 DE OFFICE/OUTPATIENT ESTABLISHED LOW MDM 20 MIN Reason for Visit and Comments: Follow-up [430686] - Here for F/U of his gallbladder mass. Normal [facility] ANTI C3 DATon 09-17-2023 ANTI C3 ASHLEY Negative Normal [facility] Comment on above: Order Comment: 2 uni ts Performed By: #### L [id number] ####[facility], ANTI IGG DATon 09-17-2023 ANTI IGG ASHLEY Negative Normal [facility] Comment on above: Order Comment: 2 uni ts Performed By: #### L [id number] #### [facility] ([facility]) [address] [place] [address] ANTIBODY IDENTIFICATIONon ANTIBODY IDENTIFICATION [facility] Normal [facility] Comment on above: Order Comment: 2 uni ts Performed By: #### L [id number] ####[facility], Labon 09-17-[id number] 1940 M Date Provider Department Center 09/17/2023 2243-[facility] RESOURCE DCC DRAW [facility] Family History Problem Relation Age of Onset Heart disease Mother No Known Problems Father No Known Problems Sister Family Status - Relation Status Age at Mother Father Sister Alive Normal [facility] TYPE AND SCREENon 09-17-2023 AB SCREEN Positive Normal [facility] Comment on above: Order Comment: 2 uni ts Performed By: #### L [id number] #### [facility] ([facility]) [address] [place] [address] ABO group Nom (Bld) A Normal [facility] Comment on above: Order Comment: 2 uni ts Performed By: #### L [id number] #### [facility] ([facility]) [address] [place] [address] RH TYPE IN BLOOD Positive Normal [facility] Comment on above: Order Comment: 2 uni ts Performed By: #### L [id number] #### [facility] ([facility]) [address] [place] [address] Abstracton 09-14-[id number] 1940 M Date Provider Department Center 09/14/2023 [id number] BRYANT [facility] ONC [facility] Family History Problem Relation Age of Onset Heart disease Mother No Known Problems Father No Known Problems Sister Family Status - Relation Status Age at Mother Father Sister Alive Normal [facility] Abstracton 09-13-[id number] 1940 M Date Provider Department [place] 09/13/2023 [id number] BRYANT [facility] ONC [facility] Family History Problem Relation Age of Onset Heart disease Mother No Known Problems Father No Known Problems Sister Family Status - Relation Status Age at Mother Father Sister Alive Normal [facility] echo limited [facility] echo limited [facility] Main [place] [address] [place] [address] Echocardiogram Signed Patient: Chico Baker MR#: [id number] 284 : 1940 Acct:[id number] Age/Sex: 83 / M ADM Date: 08/31/23 Loc: Room: Type: [facility] Attending Dr: Sheri Christiansen MD Ordering Provider: Sheri Christiansen MD Date of Service: 08/31/23 [facility] echo limited: I35.0 - Nonrheumatic aortic (valve) [...] mmHg Transcribed By: SCV Performed At: 08/31/23 0086 Signed By: Judah Harrington MD 08/31/23 1723 Normal [facility]PG ECG *CARDIOLOGY ONLY*on 08-19-2023 FPG ECG *CARDIOLOGY ONLY* [facility] [place] [address] Electrocardiograph Report Signed Patient: Chico Baker MR#: [id number] : 1940 Acct:[id number] Age/Sex: 83 / M ADM Date: 08/19/23 Loc: EKGCARDIO Room: Type: [facility] Attending Dr: Sheri Christiansen MD Ordering Provider: [...] rhythm Normal ECG Confirmed by Sheri Christiansen ([id number]) on 08/20/2023 12:14:54 AM Referred By: Electronically Signed By:Sheri Christiansen Transcribed By: MUS Signed By Sheri Christiansen MD [address] [facility] 2908-18-2023 29 Addended by: NICOLE MONTES on: 08/19/2023 11:25 AM Modules accepted: Orders Normal [facility] APTTon 08-18-2023 ACTIVATED PARTIAL THROMBOPLASTIN TIME IN PPP BY COAGULATION ASSAY 32.1 Seconds Normal 25.0-35.0 [facility] Comment on above: Result Comment: Clin ical significance of the APTT is questionable in the presence of heparin. Performed By: #### L [id number] #### [facility] ([facility]) [address] [place] [address] CANCER ANTIGEN 19-9on 2023 CANCER AG 19-9 (U/ML) IN SER/PLAS <2 Normal <=35 [facility] Comment on above: Result Comment: INTE [...] or absence of malignant disease. Performed By: [facility] [address] [place] [address] Grade Teacher: Mario Mckeon MD, PhD CLIA Number: [id number] Performed By: #### L [id number] ####[facility] ([facility])[address] [place] [address] CBCon 08-18-2023 Erythrocyte distribution width (RBC) [Ratio] 12.6 % Normal 11.5-15.0 [facility] Comment on above: Performed By: #### L [id number] #### [facility] ([facility]) [address] [place] [address] ERYTHROCYTE MEAN CORPUSCULAR HEMOGLOBIN CONCENTRATION (G/DL) BY AUTOMATED 32.3 g/dL Normal 32.0-35.0 [facility] Comment on above: Performed By: #### L [id number] #### [facility] ([facility]) [address] [place] [address] Hematocrit (Bld) [Volume fraction] 37.8 % Low 39.0-55.0 [facility] Comment on above: Performed By: #### L [id number] #### [facility] [address] [place] [address] Hemoglobin (Bld) [Mass/Vol] 12.2 g/dL Low 13.0-17.0 [facility] Comment on above: Performed By: #### L [id number] #### [facility] ([facility]) [address] [place] [address] MCH (RBC) [Entitic mass] 30.7 pg Normal 27.0-33.0 [facility] Comment on above: Performed By: #### L [id number] #### [facility] ([facility]) [address] [place] [address] MCV (RBC) [Entitic vol] 95.0 fL Normal 82.0-98.0 [facility] Comment on above: Performed By: #### L [id number] #### [facility] ([facility]) [address] [place] [address] PLATELETS (10*3/UL) IN BLOOD AUTOMATED COUNT 206 10*3/uL Normal 150-400 [facility] Comment on above: Performed By: #### L [id number] #### [facility] ([facility]) [address] [place] [address] RBC (Bld) [#/Vol] 3.98 10*6/uL Low 4.20-5.70 [facility] Comment on above: Performed By: #### L [id number] #### [facility] ([facility]) [address] [place] [address] WBC (Bld) [#/Vol] 10.15 10*3/uL Normal 4.00-10.60 [facility] Comment on above: Performed By: #### L [id number] #### [facility] ([facility]) [address] [place] [address] COMPREHENSIVE METABOLIC PANE [place] 08-18-2023 Albumin [Mass/Vol] 4.1 g/dL Normal 3.5-5.7 [facility] Comment on above: Performed By: #### L [id number] #### [facility] ([facility]) [address] [place] [address] ALP [Catalytic activity/Vol] 122 U/L High 34-104 [facility] Comment on above: Performed By: #### L [id number] #### [facility] ([facility]) [address] [place] [address] ALT [Catalytic activity/Vol] 8 U/L Normal 7-52 [facility] Comment on above: Performed By: #### L [id number] #### [facility] ([facility]) [address] [place] [address] Anion gap [Moles/Vol] 12 mmol/L Normal 7-20 [facility] Comment on above: Performed By: #### L [id number] #### [facility] ([facility] [address] [place] [address] AST [Catalytic activity/Vol] 12 U/L Low 13-39 [facility] Comment on above: Performed By: #### L [id number] #### [facility] [address] [place] [address] Bilirubin [Mass/Vol] 0.5 mg/dL Normal 0.3-1.0 [facility] Comment on above: Performed By: #### L [id number] #### [facility] ([facility]) [address] [place] [address] Calcium [Mass/Vol] 8.9 mg/dL Normal 8.6-10.3 [facility] Comment on above: Performed By: #### L [id number] #### [facility] [address] [place] [address] Chloride [Moles/Vol] 102 mmol/L Normal 98-107 [facility] Comment on above: Performed By: #### L [id number] #### [facility] [address] [place] [address] CO2 [Moles/Vol] 26 mmol/L Normal 21-31 [facility] Comment on above: Performed By: #### L [id number] #### [facility] [address] [place] [address] Creatinine [Mass/Vol] 1.02 mg/dL Normal 0.70-1.30 [facility] Comment on above: Performed By: #### L [id number] #### [facility] [address] [place] [address] GLOMERULAR FILTRATION RATE ML/MIN/1.73 SQ M.PREDICTED 73.8 mL/min/1.73m*2 Normal >60.0 [facility] Comment on above: Result Comment: The [facility]???s estimated glomerular filtration rate (eGFR) will [...] individuals. Performed By: #### L [id number] #### [facility] ([facility]) [address] [place] [address] Glucose [Mass/Vol] 100 mg/dL Normal 70-100 [facility] Comment on above: Performed By: #### L [id number] #### [facility] ([facility]) [address] [place] [address] Potassium [Moles/Vol] 4.7 mmol/L Normal 3.5-5.1 [facility] Comment on above: Performed By: #### L [id number] #### [facility] ([facility]) [address] [place] [address] Protein [Mass/Vol] 7.8 g/dL Normal 6.0-8.3 [facility] Comment on above: Performed By: #### L [id number] #### [facility] ([facility]) [address] [place] [address] Sodium [Moles/Vol] 135 mmol/L Low 136-145 [facility] Comment on above: Performed By: #### L [id number] #### [facility] ([facility]) [address] [place] [address] Urea nitrogen [Mass/Vol] 24 mg/dL Normal 7-25 [facility] Comment on above: Performed By: #### L [id number] #### [facility] ([facility]) [address] [place] [address] UREA NITROGEN/CREATININE (MASS RATIO) IN SER/PLAS 23.5 Normal [facility] Comment on above: Performed By: #### L [id number] #### [facility] ([facility]) [address] [place] [address] Labon 08-18-[id number] 1940 M Date Provider Department [place] 08/18/2023 2242-[facility] RESOURCE [facility] Comprehensiv Family History Problem Relation Age of Onset Heart disease Mother No Known Problems Father No Known Problems Sister Family Status - Relation Status Age at Mother Father Sister Alive Normal [facility] Office Visiton 08-18-2023 Follow-up visit [id number] [address] J 1940 M Date Provider Department [place] 08/18/2023 [id number] BRYANT ONC DCC Family History Problem Relation Age of Onset Heart disease Mother No Known Problems Father No Known Problems Sister Family Status - Relation Status Age at Mother Father Sister Alive Level of Service:96844 DE OFFICE/OUTPATIENT ESTABLISHED HIGH MDM 40 MIN Reason for Visit and Comments: Consult [484] - 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 Review MRCP that was done yesterday. Normal [facility] PROTIME-INRon 08-18-2023 INR IN PPP BY COAGULATION ASSAY 1.03 Normal 0.90-1.10 [facility] Comment on above: Result Comment: ACCC [...] 1995;108:231S-246S. Performed By: #### L [id number] #### [facility] [address] [place] [address] PROTHROMBIN TIME (PT) IN PPP BY COAGULATION ASSAY 13.5 Seconds Normal 12.3-14.8 [facility] Comment on above: Performed By: #### L [id number] #### [facility] [address] [place] [address] TYPE AND SCREENon 08-18-2023 AB SCREEN Negative Normal [facility] Comment on above: Performed By: #### L [id number] #### [facility] [address] [place] [address] ABO group Nom (Bld) A Normal [facility] Comment on above: Performed By: #### L [id number] #### [facility] ([facility]) [address] [place] [address] RH TYPE IN BLOOD Positive Normal [facility] Comment on above: Performed By: #### L [id number] #### [facility] ([facility]) [address] [place] [address] MR ABDOMEN WO CONTRAST MRCPo n 08-17-2023 [...] Rodriguez MD. Not Vldtd Invalid Interpretation Code [facility] Comment on above: Order Comment: Gallb ladder mass. 08-13-2023 29 Addended by: MARIA EUGENIA BERRY on: 08/13/2023 11:35 AM Modules accepted: Orders Normal [facility] 29 Addended by: NICOLE MONTES on: 08/16/2023 11:34 AM Modules accepted: Orders Normal [facility] Office Visiton 08-13-2023 Follow-up visit [id number] [address] 1940 M Date Provider Department Center 08/13/2023 465-MARIA EUGENIA BERRY DCC ONC DCC Family History Problem Relation Age of Onset Heart disease Mother No Known Problems Father No Known Problems Sister Family Status - Relation Status Age at Mother Father Sister Alive Level of Service:NOCHG 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 and Comments: New Patient [632] - ELECTRICIAN OUTSIDE - Gallbladder mas Normal [facility] Orders Onlyon 08-04-2023 Orders Only [id number] [address] 1940 M Date Provider Department Center 08/04/2023 [id number], HISTORICAL DCC ONC DCC No family history on file Normal [facility] CT angio abdomen pelvison CT angio abdomen pelvis [facility] [place] [address] CT Scan Report Signed Patient: Chico Baker MR#: [id number] 284 : 1940 Acct:[id number] Age/Sex: 83 / M ADM Date: 06/16/23 Loc: CT Room: Type: [facility] Attending Dr: Raul Quan MD Copies to: [...] aortic 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 The tangirnaq aneurysmal sac is grossly unchanged in size [...] Payan Jr., AmairaniOSilvestre06/16/2023 1:59 PM Dictation Location: [place] [address] Transcribed By: [facility] 06/16/23 1359 Dictated By: Woody Payan Jr, DO 06/16/23 1351 Signed By: 06/16/23 1359 Normal [facility] ISTAT XRay CREon 06-16-2023 ISTAT GFR > 60.0 Normal [facility] Comment on above: Result Comment: PERF ORMED BY: [place] [address] PATHOLOGIST [employer] INVESTIGATOR ZENA CASTELLON M.D. Performed By: #### I SCRE #### [address] No Panel InformationOrdered By: Raul Quan on 04-10-2024 Bedside Estimated GFR (eGFR) > 60.0 [facility] Whole blood creatinine measu rementOrdered By: Raul Quan on 06-16-2023 Creatinine [Mass/Vol] 0.9 mg/dL Normal 0.6-1.[address] [facility] Comment on above: ER/ESD physician is notified/shown all ISTAT results.Critical values may be confirmed by laboratory testing ifdeemed necessary by ER attending doctor. Result Comment: ER/E SD physician is notified/shown all ISTAT results. Critical values may be confirmed by laboratory testing if deemed necessary by ER attending doctor. Performed By: #### I SCRE #### [facility] [address] Calculus Analysison 05-12-19 24 Calcium oxalate dihydrate Infrared spectroscopy (Stone) [Mass fraction] 20 % Invalid Interpretation Code [facility] Comment on above: Performed By: #### 1 [id number] ####[facility] [address] [place] [address] Calcium oxalate monohydrate (Stone) [Mass fraction] 80 % Invalid Interpretation Code [facility] Comment on above: Performed By: #### 1 [id number] ####[facility] [address] [place] [address] Color (Stone) Brown Invalid Interpretation Code [facility] Comment on above: Performed By: #### 1 [id number] ####[facility] [address] [place] [address] Composition Comment Invalid Interpretation Code [facility] Comment on above: Result Comment: Perc entage (Represents the % composition) Performed By: #### 1 [id number] ####[facility] [address] [place] [address] Disclaimer: Comment Invalid Interpretation Code [facility] Comment on above: Result Comment: This test was developed and its performance characteristics determined by [facility]. It has not been cleared or approved by the Food and Drug Administration. Performed at: [facility] Lab[address] [id number] Emanuel Silverman Performed By: #### 1 [id number] ####[facility] [address] [place] [address] Laboratory comment Daniel (Report) Comment Invalid Interpretation Code [facility] Comment on above: Result Comment: Mina aguilar questions regarding Calculi Analysis contact [facility] at: [phone]. Performed By: #### 1 [id number] ####[facility] [address] [place] [address] Please Note: Comment Invalid Interpretation Code [facility] Comment on above: Result Comment: Calc melissa report will follow via computer, mail or oyster tonger delivery. Performed By: #### 1 [id number] ####[place] [address] [place] [address] Size (Stone) [Entitic vol] 2x3 Invalid Interpretation Code [facility] Comment on above: Result Comment: Mult iple pieces received. Dimensions of the largest piece reported. Performed By: #### 1 [id number] ####[address] [address] Specimen source subject Nom Comment Invalid Interpretation Code [facility] Comment on above: Result Comment: Not provided Performed By: #### 1 [id number] ####[facility] [address] [place] [address] Stone Photo Comment Invalid Interpretation Code [facility] Comment on above: Result Comment: Phot ograph will follow under a separate cover Performed By: #### 1 [id number] ####[facility] [address] [place] [address] Weight (Stone) 12 mg Invalid Interpretation Code [facility] Comment on above: Performed By: #### 1 [id number] ####[facility] [address] [place] [address] Consent for Procedure/Surger yon 05-05-2023 Consent for Procedure/Surgery [id number]#1.00TIFF Normal [facility] RAD - MISCon 05-05-2023 RAD - MISC [id number]#1.00TIFF [facility] Ambulatory Visit Summaryon 0 05-04-2023 Ambulatory [...] Ivelisse Hassan MD Where: [facility] Patient Educationon 05-04-19 Patient Education Nephrology Dietary [...] ? 8 oz (237 mL) of milk, syidmmi-ibszondxwnsw-rmlmk milk, and calcium-fortifiedfruit juice. Calcium-fortified means that [...] Spinach (cooked), rhubarb, beets, sweet potatoes, and Estonian chard. ? Peanuts. ? Potato chips, south african fries, and baked potatoes with skin on. ? Nuts and nut products. ? Chocolate. ? If you regularly take a diuretic medicine, make sure to eat at least 1 or 2 servings of fruits or vegetables that are high in potassium each day. These include: ? Avocado. ? Banana. ? [place], prune, carrot, or tomato juice. ? Baked [...] fish oil, or vitamin B6. ? Take boei-uml-mbjvufe and prescription medicines only as told by your health care provider. These include supplements. What foods sh (more content not included)... Normal [facility] RAD - MISCon 05-04-2023 RAD - MIS [id number]#1.00TIFF Normal [facility] Urology Office/Clinic Noteon 05-04-2023 Urology Office/Clinic Note [...] lower urinary tract symptoms) hx TURP by [facility] 2019, prostate small on 05/11/22 CT [...] All questions/concern (more content not included)... Normal [facility] Comment on above: Result Comment: Elec tronically Signed By: Ivelisse Hassan MD\.br\Date and Time Signed: 05/04/23 12:02 EST\.br\Electronically Co-Signed By: Eleonora Belcher\.br\Date and Time Co-Signed: 05/04/23 11:47 EST Operative Reporton Operative Report [id number]#1.00TIFF Normal [facility] Physician Orderon 04-29-2023 Physician Order [id number]#1.00TIFF Normal [facility] RAD - MISCon 04-28-2023 RAD - MISC [id number]#1.00TIFF Normal [facility] Consultation Noteon 04-23-19 Consultation Note [id number]#1.00TIFF Normal [facility] Formson 04-23-2023 Forms [id number]#1.00TIFF Normal [facility] Consent for Procedure/Surger yon 04-21-2023 Consent for Procedure/Surgery [id number]#1.00TIFF [facility] Lab Reportson 04-21-2023 Lab Reports [id number]#1.00TIFF Normal [facility] Lab Reports [id number]#1.00TIFF Normal [facility] Activated partial thrombopla stin time (aPTT) in platelet poor plasma by coagulation aon 04-20-2023 aPTT Coag (PPP) [Time] 32.6 s 22.3-36.2 [facility] Basophils Auto (Bld) [#/Vol] on 04-20-2023 Basophils (Bld) [#/Vol] 0.1 10 3/uL 0.0-0.1 [facility] Basophils/100 WBC Auto (Bld) on 04-20-2023 Basophils/100 WBC (Bld) 0.5 % 0.2-2.0 [facility] Eosinophils/100 WBC Auto (Bl d)on 04-20-2023 Eosinophils/100 WBC (Bld) 1.2 % 0.9-7.0 [facility] Erythrocyte distribution wid th Auto (RBC) [Ratio]on 04-20-2023 Erythrocyte distribution width (RBC) [Ratio] 12.4 % 11.0-15.0 [facility] Estimated glomerular filtrat ion rate (GFR) non- Americanon 04-20-2023 GFR/1.73 sq M.predicted among non-blacks MDRD (S/P/Bld) [Vol rate/Area] mL/min/{1.73_m2} >=60 [facility] Formson 04-20-2023 Forms [id number]#1.00TIFF Normal [facility] Hematocrit Auto (Bld) [Volum e fraction]on 04-20-2023 Hematocrit (Bld) [Volume fraction] 36.7 % 42.0-54.0 [facility] Hemoglobin [Mass/volume] in Bloodon 04-20-2023 Hemoglobin (Bld) [Mass/Vol] 11.5 g/dL 14.0-18.0 [facility] INR in Platelet poor plasma by Coagulation assayon 04-20-2023 INR Coag (PPP) [Relative time] 1.01 {INR} [facility] Comment on above: DESIRED INR:2.0-3.0 CONDITIONS NOT LISTED BELOW2.5-3.5 FOR PROSTHETIC HEART VALVE REPLACEMENT2.5-3.5 RECURRENT THROMBOSIS Laboratory - Chemistry and C hemistry - challengeon 04-20-2023 Calcium [Mass/Vol] 9.0 mg/dL 8.5-10.1 [facility] Chloride [Moles/Vol] 104 mmol/L 98-[address] [facility] CO2 [Moles/Vol] 28.9 mmol/L 21.0-32.0 [facility] Creatinine [Mass/Vol] 0.89 mg/dL 0.70-1.[address] [facility] GFR/1.73 sq M.predicted MDRD (S/P/Bld) [Vol rate/Area] mL/min/{1.73_m2} >=60 [facility] Glucose [Mass/Vol] 133 mg/dL 74-106 [facility] Potassium [Moles/Vol] 4.6 mmol/L 3.5-5.[address] [facility] Sodium [Moles/Vol] 140 mmol/L 136-145 [facility] Urea nitrogen [Mass/Vol] 15.0 mg/dL 7.0-18.0 [facility] Urea nitrogen/Creatinine [Mass ratio] 16.9 mg/mg [facility] Laboratory - Hematology and Cell countson 04-20-2023 Immature granulocytes/100 WBC (Bld) 0.3 % 0.0-0.5 [facility] Leukocytes [#/volume] correc shyann for nucleated erythrocytes in Blood by Automated counon 04-20-2023 WBC corrected for nucl RBC Auto (Bld) [#/Vol] 9.9 10 3/uL 4.0-11.0 [facility] Lymphocytes Auto (Bld) [#/Vo l]on 04-20-2023 Lymphocytes (Bld) [#/Vol] 1.1 10 3/uL 1.2-3.8 [facility] Lymphocytes/100 WBC Auto (Bl d)on 04-20-2023 Lymphocytes/100 WBC (Bld) 11.3 % 20.5-60.0 [facility] MCH Auto (RBC) [Entitic mass ]on 04-20-2023 MCH (RBC) [Entitic mass] 29.6 pg 25.9-34.0 [facility] MCHC Auto (RBC) [Mass/Vol]on 04-20-2023 MCHC (RBC) [Mass/Vol] 31.3 g/dL 29.9-35.[address] [facility] MCV Auto (RBC) [Entitic vol] on 04-20-2023 MCV (RBC) [Entitic vol] 94.6 fL 80.0-94.0 [facility] Monocytes Auto (Bld) [#/Vol] on 04-20-2023 Monocytes (Bld) [#/Vol] 0.8 10 3/uL 0.3-0.8 [facility] Monocytes/100 WBC Auto (Bld) on 04-20-2023 Monocytes/100 WBC (Bld) 8.5 % 1.7-12.0 [facility] Neutrophils Auto (Bld) [#/Vo l]on 04-20-2023 Neutrophils (Bld) [#/Vol] 7.8 10 3/uL 1.4-6.5 [facility] Neutrophils/100 WBC Auto (Bl d)on 04-20-2023 Neutrophils/100 WBC (Bld) 78.2 % 43.0-75.0 [facility] No Panel Informationon 04-20 Eosinophils # (Auto) 0.1 10 3/uL 0.0-0.[address] [facility] Immature Granulocyte # (Auto) 0.03 10 3/uL 0.00-0.03 [facility] Platelet mean volume Auto (B ld) [Entitic vol]on 04-20-2023 Platelet mean volume (Bld) [Entitic vol] 9.4 fL 9.5-13.5 [facility] Platelets Auto (Bld) [#/Vol] on 04-20-2023 Platelets (Bld) [#/Vol] 188 10 3/uL 150-450 [facility] Prothrombin time (PT)on 04-08 PT Coag (PPP) [Time] 10.7 s 9.0-11.[address] [facility] RBC Auto (Bld) [#/Vol]on RBC (Bld) [#/Vol] 3.88 10 6/uL 4.70-6.10 [facility] Serum or plasma anion gap de terminationon 04-20-2023 Anion gap [Moles/Vol] 11.7 mmol/L [facility] RAD - MISCon 04-08-2023 [facility] - MIS [id number]#1.00TIFF Normal [facility] Operative Reporton Operative Report [id number]#1.00TIFF Normal [facility] RAD - MISCon 03-25-2023 RAD - MISC [id number]#1.00TIFF Normal [facility] Consent for Procedure/Surger yon 03-22-2023 Consent for Procedure/Surgery [id number]#1.00TIFF Normal [facility] Lab Reportson 03-19-2023 Lab Reports [id number]#1.00TIFF Normal [facility] RAD - MISCon 03-19-2023 RAD - [facility] [id number]#1.00TIFF Normal [facility] Reminderson 03-03-2023 Reminders - From: Faviola Clemens To: EU - Recalls Lue; Sent: 01/13/2023 10:01:25 EST Show up: 02/12/2023 10:01:00 EST Subject: LINDSEY and KUB Due Date/Time: 02/12/2023 10:01:00 EST Pt to have LINDSEY and KUB done in March at [facility]. Orders placed. Possible ESWL pending size of stones. No follow up at this time. Pt to be called with results. Called pt and reminded him to complete LINDSEY/KUB @ [facility] in the next month. Orders were [...] KML Patient is scheduled for 03/24/22 @ [facility] Comment on above: Result Comment: Miss ing Attachment - attachment exceeds size limitation (02/19/2023) RAD - Ultrasound Report Can be viewed in source system Missing Attachment - attachment exceeds size limitation (02/19/2023) RAD - MISC Can be viewed in source system RAD - MISCon 02-22-2023 RAD - MISC [id number]#1.00TIFF [facility] RAD - Ultrasound Reporton RAD - Ultrasound Report [id number]#1.00TIFF [facility] Screenson 01-14-2023 Screens [id number]#1.00TIFF [facility] Screens [id number]#1.00TIFF [facility] Patient Educationon 01-14-20 Patient Education Urology [...] Follow these instructions at home: ? Take xlez-ufc-aksvqbm and prescription medicines only as told by [...] the medicine (more content not included)... Normal [facility] Urology Office/Clinic Noteon 01-13-2023 Urology Office/Clinic Note [...] with voice recognition artificial intelligence software, specifically [employer], [employer] and or [employer]. Substitutions may have occurred due to the [...] stones no (more content not included)... Normal [facility] Comment on above: Result Comment: Elec tronically Signed By: Ivelisse Hassan MD\.br\Date and Time Signed: 01/13/23 16:25 EST\.br\Electronically Co-Signed By: Faviola Clemens\.br\Date and Time Co-Signed: 01/13/23 09:59 EST Screenson 10-08-2022 Screens [id number]:127 [facility] Screens [id number]#[id number]:127 [facility] Ambulatory Visit Summaryon 0 10-07-2022 Ambulatory Visit Summary CHICO BAKER :1940 Visit Date:10/07/2022 Ambulatory Visit Instructions Your Diagnosis BPH with obstruction/lower urinary tract symptoms History of kidney stones Asymptomatic microscopic hematuria 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 Tests Performed Urnls Dip Stick Auto w/o Microscopy POC 96536 Your Care Team Attending Physician - Ivelisse [...] LEIJA, Ivelisse Schreiber Where: [facility] Patient Educationon 10-08-19 Patient Education Urology Benign [...] Follow these instructions at home: ? Take gtng-ydg-qycgadp and prescription medicines only as told by [...] the medicine (more content not included)... [facility] Urology Office/Clinic Noteon 10-07-2022 Urology Office/Clinic Note [...] lower urinary tract symptoms) hx TURP by [facility] 2019, prostate small on 05/11/22 CT [...] neg, s (more content not included)... [facility] Comment on above: Result Comment: Elec tronically Signed By: Ivelisse Hassan MD\.br\Date and Time Signed: 10/07/22 10:28 EDT\.br\Electronically Co-Signed By: Eleonora Belcher.br\Date and Time Co-Signed: 10/07/22 09:25 EDT Consent for Procedure/Surger yon 07-29-2022 Consent for Procedure/Surgery [id number]#[id number]:127 [facility] Patient Educationon 07-29-19 Patient Education Urology Erectile [...] these instructions at home: Medicines ? Take afiv-fwt-hnilgqb and prescription medicines only as told by [...] include cig (more content not included)... [facility] Urology Office/Clinic Noteon 07-28-2022 Urology Office/Clinic Note [...] urine The Urethra was dilated to: 16-24 Peruvian with connor sounds without difficulty Soft 14 [...] (erectile d (more content not included)... [facility] Comment on above: Result Comment: Elec tronically Signed By: Mo LEIJA, Ivelisse Schreiber\.br\Date and Time Signed: 07/28/22 10:49 EDT\.br\Electronically Co-Signed By: Clarissa Joaquin MA\.br\Date and Time Co-Signed: 07/28/22 10:28 EDT Blood activated clotting sue e by coagulation assayOrdered By: Raul Quan on 07-08-2022 ACT Coag (Bld) 335 s 90-139 [facility] Comment on above: Reference Range: 90- 139 (Non-heparinized) Laboratory - CoagulationOrde red By: Raul Quan on 07-08-2022 PT Coag (PPP) [Time] 11.7 s 9.0-12.[address] [facility] Platelet poor plasma interna tional normalized ratio (INR) by coagulation assay (relatOrdered By: Raul Quan on 07-08-2022 INR Coag (PPP) [Relative time] 1.0 {INR} [facility] Comment on above: INR Therapeutic Rang [...] 07-01-2022 ALT [Catalytic activity/Vol] 9 U/L 7-52 [facility] Albumin [Mass/volume] in Ser um or Plasma by Bromocresol green (BCG) dye binding methoOrdered By: Raul Quan on 07-01-2022 Albumin BCG dye [Mass/Vol] 3.7 g/dL 3.5-5.7 [facility] Alkaline phosphatase [Enzyma tic activity/volume] in Serum or PlasmaOrdered By: Raul Quan on 07-01-2022 ALP [Catalytic activity/Vol] 96 U/L 34-104 [facility] Aspartate aminotransferase [ Enzymatic activity/volume] in Serum or PlasmaOrdered By: Raul Quan on 07-01-2022 AST [Catalytic activity/Vol] 14 U/L 13-39 [facility] Basophils Auto (Bld) [#/Vol] Ordered By: Raul Quan on 07-01-2022 Basophils (Bld) [#/Vol] 0.1 10*3/uL 0.0-0.2 [facility] Basophils/100 WBC Auto (Bld) Ordered By: Raul Quan on 07-01-2022 Basophils/100 WBC (Bld) 0.7 % . [facility] Bilirubin.total [Mass/volume ] in Serum or PlasmaOrdered By: Raul Quan on 07-01-2022 Bilirubin [Mass/Vol] 0.5 mg/dL 0.3-1.[address] [facility] Calcium [Mass/volume] in Ser um or PlasmaOrdered By: Raul Quan on 07-01-2022 Calcium [Mass/Vol] 8.5 mg/dL 8.6-10.3 [facility] Carbon dioxide, total [Moles /volume] in Serum or PlasmaOrdered By: Raul Quan on 07-01-2022 CO2 [Moles/Vol] 24.6 mmol/L 21.0-31.0 [facility] Chloride [Moles/volume] in S aisha or PlasmaOrdered By: Raul Quan on 07-01-2022 Chloride [Moles/Vol] 100 mmol/L 98-[address] [facility] Creatinine [Mass/volume] in Serum or PlasmaOrdered By: Raul Quan on 07-01-2022 Creatinine [Mass/Vol] 0.87 mg/dL 0.70-1.[address] [facility] Eosinophils Auto (Bld) [#/Vo l]Ordered By: Raul Quan on 07-01-2022 Eosinophils (Bld) [#/Vol] 0.1 10*3/uL 0.0-0.45 [facility] Eosinophils/100 WBC Auto (Bl d)Ordered By: Raul Quan on 07-01-2022 Eosinophils/100 WBC (Bld) 1.5 % . [facility] Erythrocyte distribution wid th Auto (RBC) [Ratio]Ordered By: Raul Quan on 07-01-2022 Erythrocyte distribution width (RBC) [Ratio] 13.0 % 12.0-14.8 [facility] Globulin Calc (S) [Mass/Vol] Ordered By: Raul Quan on 07-01-2022 Globulin (S) [Mass/Vol] 3.4 g/dL [facility] Glucose [Mass/volume] in Ser um or PlasmaOrdered By: Raul Quan on 07-01-2022 Glucose [Mass/Vol] 163 mg/dL 70-100 [facility] Comment on above: ADA recommended refe rence rangeRandom Glucose Reference Range is dependent on time and content of last meal. Glucose of more than 200 mg/dL in a nonstressed, ambulatory subject supports the diagnosis of Diabetes Mellitus. Hematocrit Auto (Bld) [Volum e fraction]Ordered By: Raul Quan on 07-01-2022 Hematocrit (Bld) [Volume fraction] 36.4 % 38.8-50.0 [facility] Hemoglobin [Mass/volume] in BloodOrdered By: Raul Quan on 07-01-2022 Hemoglobin (Bld) [Mass/Vol] 12.1 g/dL 13.0-17.0 [facility] Leukocytes [#/volume] correc shyann for nucleated erythrocytes in Blood by Automated counOrdered By: Raul Quan on 07-01-2022 WBC corrected for nucl RBC Auto (Bld) [#/Vol] 8.5 10*3/uL 4.1-10.5 [facility] Lymphocytes Auto (Bld) [#/Vo l]Ordered By: Raul Quan on 07-01-2022 Lymphocytes (Bld) [#/Vol] 1.6 10*3/uL 1.00-4.8 [facility] Lymphocytes/100 WBC Auto (Bl d)Ordered By: Raul Quan on 07-01-2022 Lymphocytes/100 WBC (Bld) 19.3 % . [facility] MCH Auto (RBC) [Entitic mass ]Ordered By: Raul Quan on 07-01-2022 MCH (RBC) [Entitic mass] 30.2 pg 27.5-35.2 [facility] MCHC Auto (RBC) [Mass/Vol]Or dered By: Raul Quan on 07-01-2022 MCHC (RBC) [Mass/Vol] 33.3 g/dL 32.5-35.[address] [facility] MCV Auto (RBC) [Entitic vol] Ordered By: Raul Quan on 07-01-2022 MCV (RBC) [Entitic vol] 90.7 fL 83.5-101 [facility] Monocytes Auto (Bld) [#/Vol] Ordered By: Raul Quan on 07-01-2022 Monocytes (Bld) [#/Vol] 0.9 10*3/uL 0.0-0.8 [facility] Monocytes/100 WBC Auto (Bld) Ordered By: Raul Quan on 07-01-2022 Monocytes/100 WBC (Bld) 11.1 % . [facility] Neutrophils Auto (Bld) [#/Vo l]Ordered By: Raul Quan on 07-01-2022 Neutrophils (Bld) [#/Vol] 5.7 10*3/uL 1.8-7.7 [facility] Neutrophils/100 WBC Auto (Bl d)Ordered By: Raul Quan on 07-01-2022 Neutrophils/100 WBC (Bld) 67.4 % . [facility] No Panel InformationOrdered By: Raul Quan on 07-01-2022 Estimated GFR (CKD-EPI) > 60.0 mL/Min [facility] Creatinine Clearance (Chem N/A [facility] Nucleated erythrocytes [Pres ence] in Blood by Automated countOrdered By: Raul Quan on 07-01-2022 Nucleated RBC Auto Ql (Bld) 0.0 /100{WBC} 0-0.5 [facility] Platelet mean volume Auto (B ld) [Entitic vol]Ordered By: Raul Quan on 07-01-2022 Platelet mean volume (Bld) [Entitic vol] 7.6 fL 6.6-10.1 [facility] Platelets Auto (Bld) [#/Vol] Ordered By: Raul Quan on 07-01-2022 Platelets (Bld) [#/Vol] 198 10*3/uL 150-450 [facility] Potassium [Moles/volume] in Serum or PlasmaOrdered By: Raul Quan on 07-01-2022 Potassium [Moles/Vol] 4.4 mmol/L 3.5-5.[address] [facility] Protein [Mass/volume] in Ser um or PlasmaOrdered By: aRul Quan on 07-01-2022 Protein [Mass/Vol] 7.1 g/dL 6.4-8.9 [facility] RBC Auto (Bld) [#/Vol]Ordere d By: Raul Quan on 07-01-2022 RBC (Bld) [#/Vol] 4.01 10*6/uL 3.90-5.60 [facility] Serum or plasma albumin/glob ulin mass ratioOrdered By: Raul Quan on 07-01-2022 Albumin/Globulin [Mass ratio] 1.1 {ratio} [facility] Serum or plasma anion gap de terminationOrdered By: Raul Quan on 07-01-2022 Anion gap [Moles/Vol] 13.8 mmol/L 6.0-15.0 [facility] Sodium [Moles/volume] in Ser um or PlasmaOrdered By: Raul Quan on 07-01-2022 Sodium [Moles/Vol] 134 mmol/L 136-145 [facility] Urea nitrogen [Mass/volume] in Serum or PlasmaOrdered By: Raul Lawrencemary ann on 07-01-2022 Urea nitrogen [Mass/Vol] 17 mg/dL 7 [facility] WBC Auto (Bld) [#/Vol]Ordere d By: Raul Quan on 07-01-2022 WBC (Bld) [#/Vol] 8.5 10*3/uL 4.1-10.5 [facility] Patient Educationon 06-25-19 Patient Education Urology [...] these instructions at home: Medicines ? Take yzvb-zzx-ckhqino and prescription medicines only as told by [...] the blood stops without treatment. ? Take zdwf-ebd-cfbxuvs and prescription medicines only as told by your health care provider. ? Drink enough fluid to keep your urine pale yellow. This information is not intended to replace advice given to you by your health care provider. Make sure you discuss any questions you have with your health care provider. Document Revised: 10/23/2020 Document Reviewed: 10/23/2020 [employer] Patient Education ? 2022 [employer] [facility] Screenson 06-24-2022 Screens [id number]#[id number]:127 [facility] Screens [id number]#[id number]:127 [facility] Urology Office/Clinic Noteon 06-24-2022 Urology Office/Clinic Note [...] Urnls Dip Stick Auto w/o Microscopy POC 49098 Urology Procedure Order 4. Penile rash (R21: Rash and other nonspecific skin eruption) Pt states rash has completely cleared up after stopping Bactrim. Denies irritation. Head of penis is not red, but is discolored. Not bothersome. D/c use of cream. Resolved Ordered: Urology Procedure Order 5. ED (erectile dysfunction) (N52.9: Male erectile dysfunction, unspecified) (more content not included)... [facility] Comment on above: Result Comment: Elec tronically Signed By: Mo LEIJA, Ivelisse Doll.br\Date and Time Signed: 06/24/22 10:24 EDT RAD - CT Reporton 05-14-2022 RAD - CT Report [id number]#1.00CD:127 [facility] Creatinine (Bld) [Mass/Vol]O rdered By: Raul Quan on 05-11-2022 Creatinine [Mass/Vol] 0.9 mg/dL 0.6-1.[address] [facility] Comment on above: ER/ESD physician is notified/shown all ISTAT results.Critical values may be confirmed by laboratory testing ifdeemed necessary by ER attending doctor. No Panel InformationOrdered By: Raul Quan on 05-11-2022 POC Estimated GFR > 60 [facility] Comment on above: GFR estimated refere nce range: According to KDOQI guidelines, <60 ml/min/1.73m2 is sufficient to diagnose a patient with chronic kidney disease. POC Estimated GFR Non- Amer > 60 [facility] URINALYSISOrdered By: Kirstie sanchez on [...] Interpretation Code Negative [facility] UA Auto SS [place].plasma/[place] .RBC (Bld) [Mass ratio] 21-30 /HPF Invalid [...] Desc Random Urine (04/15/22 12:14 PM) Normal [facility] [place] UA Auto SS Urobilinogen Qn (U) 0.0503971 {Nikki'U}/dL Normal 0.0 - 1.0 EU/dL [facility] [...] Interpretation Code Negative [facility] UA Auto SS [place].plasma/[place] .RBC (Bld) [Mass ratio] 4-20 /HPF Normal [...] [facility] UA Auto SS Urobilinogen Qn (U) 0.7820042 {Nikki'U}/dL Normal 0.0 - 1.0 EU/dL [facility] UA Auto SS WBC Auto Ql (U) 1+ *ABN* (02/11/22 10:38 AM) Invalid Interpretation Code Negative [facility] UA Auto SS WBC LM.HPF (Urine sed) [#/Area] 0-5 /HPF Normal 0-5/HPF [facility] UA Auto SS Basophils Auto (Bld) [#/Vol] Ordered By: Raul Quan on 02-05-2022 Basophils (Bld) [#/Vol] 0.1 10*3/uL 0.0-0.2 [facility] Basophils/100 WBC Auto (Bld) Ordered By: Raul Quan on 02-05-2022 Basophils/100 WBC (Bld) 0.6 % . [facility] Creatinine and Glomerular fi ltration rate.predicted panel (S/P/Bld)Ordered By: Raul Quan on 02-05-2022 Creatinine [Mass/Vol] 0.94 mg/dL 0.64-1.[address] [facility] Eosinophils Auto (Bld) [#/Vo l]Ordered By: Raul Quan on 02-05-2022 Eosinophils (Bld) [#/Vol] 0.1 10*3/uL 0.0-0.45 [facility] Eosinophils/100 WBC Auto (Bl d)Ordered By: Raul Quan on 02-05-2022 Eosinophils/100 WBC (Bld) 0.7 % . [facility] Erythrocyte distribution wid th Auto (RBC) [Ratio]Ordered By: Raul Quan on 02-05-2022 Erythrocyte distribution width (RBC) [Ratio] 13.8 % 12.0-14.8 [facility] Estimated glomerular filtrat ion rate (GFR) non- AmericanOrdered By: Raul Quan on 02-05-2022 GFR/1.73 sq M.predicted among non-blacks MDRD (S/P/Bld) [Vol rate/Area] > 60 mL/Min [facility] Hematocrit Auto (Bld) [Volum e fraction]Ordered By: Raul Quan on 02-05-2022 Hematocrit (Bld) [Volume fraction] 34.6 % 38.8-50.0 [facility] Hemoglobin [Mass/volume] in BloodOrdered By: Raul Quan on 02-05-2022 Hemoglobin (Bld) [Mass/Vol] 11.4 g/dL 13.0-17.0 [facility] Leukocytes [#/volume] correc shyann for nucleated erythrocytes in Blood by Automated counOrdered By: Raul Quan on 02-05-2022 WBC corrected for nucl RBC Auto (Bld) [#/Vol] 10.3 10*3/uL 4.1-10.5 [facility] Lymphocytes Auto (Bld) [#/Vo l]Ordered By: Raul Quan on 02-05-2022 Lymphocytes (Bld) [#/Vol] 1.5 10*3/uL 1.00-4.8 [facility] Lymphocytes/100 WBC Auto (Bl d)Ordered By: Raul Quan on 02-05-2022 Lymphocytes/100 WBC (Bld) 14.4 % . [facility] MCH Auto (RBC) [Entitic mass ]Ordered By: Raul Quan on 02-05-2022 MCH (RBC) [Entitic mass] 30.1 pg 27.5-35.2 [facility] MCHC Auto (RBC) [Mass/Vol]Or dered By: Raul Quan on 02-05-2022 MCHC (RBC) [Mass/Vol] 32.9 g/dL 32.5-35.[address] [facility] MCV Auto (RBC) [Entitic vol] Ordered By: Raul Quan on 02-05-2022 MCV (RBC) [Entitic vol] 91.6 fL 83.5-101 [facility] Monocytes Auto (Bld) [#/Vol] Ordered By: Raul Quan on 02-05-2022 Monocytes (Bld) [#/Vol] 1.5 10*3/uL 0.0-0.8 [facility] Monocytes/100 WBC Auto (Bld) Ordered By: Raul Quan on 02-05-2022 Monocytes/100 WBC (Bld) 14.8 % . [facility] Neutrophils Auto (Bld) [#/Vo l]Ordered By: Raul Quan on 02-05-2022 Neutrophils (Bld) [#/Vol] 7.1 10*3/uL 1.8-7.7 [facility] Neutrophils/100 WBC Auto (Bl d)Ordered By: Raul Quan on 02-05-2022 Neutrophils/100 WBC (Bld) 69.5 % . [facility] No Panel InformationOrdered By: Raul Quan on 02-05-2022 Estimated GFR () > 60 mL/Min [facility] Comment on above: GFR estimated refere nce range: According to KDOQI guidelines, <60 ml/min/1.73m2 is sufficient to diagnose a patient with chronic kidney disease. Pharmacy Creatinine Clearance (Chem 57.50 [facility] Nucleated erythrocytes [Pres ence] in Blood by Automated countOrdered By: Raul Quan on 02-05-2022 Nucleated RBC Auto Ql (Bld) 0.1 /100{WBC} 0-0.5 [facility] Platelet mean volume Auto (B ld) [Entitic vol]Ordered By: Raul Quan on 02-05-2022 Platelet mean volume (Bld) [Entitic vol] 7.9 fL 6.6-10.1 [facility] Platelets Auto (Bld) [#/Vol] Ordered By: Raul Quan on 02-05-2022 Platelets (Bld) [#/Vol] 142 10*3/uL 150-450 [facility] Comment on above: Delta: 198 on -0825 RBC Auto (Bld) [#/Vol]Ordere d By: Raul Quan on 02-05-2022 RBC (Bld) [#/Vol] 3.77 10*6/uL 3.90-5.60 [facility] Serum or plasma anion gap de terminationOrdered By: Raul Quan on 02-05-2022 Anion gap [Moles/Vol] 10.4 mmol/L 6.0-15.0 [facility] Serum or plasma calcium richy urement (mass/volume)Ordered By: Raul Quan on 02-05-2022 Calcium [Mass/Vol] 8.4 mg/dL 8.2-10.2 [facility] Serum or plasma chloride young surement (moles/volume)Ordered By: Raul Quan on 02-05-2022 Chloride [Moles/Vol] 101 mmol/L 95-[address] [facility] Serum or plasma glucose richy urement (mass/volume)Ordered By: Raul Quan on 02-05-2022 Glucose [Mass/Vol] 109 mg/dL 70-100 [facility] Comment on above: ADA recommended refe rence rangeRandom Glucose Reference Range is dependent on time and content of last meal. Glucose of more than 200 mg/dL in a nonstressed, ambulatory subject supports the diagnosis of Diabetes Mellitus. Serum or plasma potassium me asurement (moles/volume)Ordered By: Raul Quan on 02-05-2022 Potassium [Moles/Vol] 4.6 mmol/L 3.5-5.[address] [facility] Serum or plasma sodium measu rement (moles/volume)Ordered By: Raul Quan on 02-05-2022 Sodium [Moles/Vol] 135 mmol/L 136-146 [facility] Serum or plasma total carbon dioxide measurement (moles/volume)Ordered By: Raul Quan on 02-05-2022 CO2 [Moles/Vol] 28.2 mmol/L 22.0-30.0 [facility] Serum or plasma urea nitroge n measurement (mass/volume)Ordered By: Raul Quan on 02-05-2022 Urea nitrogen [Mass/Vol] 11 mg/dL 9- [facility] WBC Auto (Bld) [#/Vol]Ordere d By: Raul Quan on 02-05-2022 WBC (Bld) [#/Vol] 10.3 10*3/uL 4.1-10.5 [facility] Covid-19 PCR (CVDTBH)on 01-07 SARS-CoV-2 (COVID-19) RNA JESSIE+probe Ql (Unsp spec) Not detected Normal NOT DETECTED [facility] Comment on above: Result Comment: This test is not yet approved or cleared by the [place] FDA. When there are no FDA-approved or cleared tests available, and other criteria are met, FDA can make tests available under an emergency access mechanism called an Emergency Use Authorization (EUA). The EUA for this test is supported by the [place] of Health and Human Service's (HHS's) declaration [...] SARS-CoV-2. Performed By: #### C VDTB #### [facility] [address] [place] [address] Dr. Jodi Oglesby CBC AUTO DIFFon 12-08-2021 BASO # 0.1 103/ul Normal 0.0-0.1 [facility] Comment on above: Performed By: #### D ATA1C #### [facility] [address] [place] [address] Dr. Jodi Oglesby Basophils/100 WBC (Bld) 0.5 % Normal 0.2-2.0 [facility] Comment on above: Performed By: #### D ATA1C #### [facility] [address] [place] [address] Dr. Jodi Oglesby EO # 0.1 103/ul Normal 0.0-0.7 [facility] Comment on above: Performed By: #### D ATA1C #### [facility] [address] [place] [address] Dr. Jodi Oglesby Eosinophils/100 WBC (Bld) 1.4 % Normal 0.9-7.0 [facility] Comment on above: Performed By: #### D ATA1C #### [facility] [address] [place] [address] Dr. Jodi Oglesby Erythrocyte distribution width (RBC) [Ratio] 13.0 % Normal 11.0-15.0 [facility] Comment on above: Performed By: #### D ATA1C #### [facility] [address] [place] [address] Dr. Jodi Oglesby Hematocrit (Bld) [Volume fraction] 36.1 % Critically low 42.0-54.0 [facility] Comment on above: Performed By: #### D ATA1C #### [facility] [address] [address] [address] Jodi Oglesby Hemoglobin (Bld) [Mass/Vol] 11.2 g/dL Critically low 14.0-18.0 [facility] Comment on above: Performed By: #### D ATA1C #### [facility] [address] [address] [address] Jodi Oglesby IG # 0.04 10e3/ul Critically high 0.00-0.03 [facility] Comment on above: Performed By: #### D ATA1C #### [facility] [address] [address] [address] Jodi Oglesby IG % 0.4 % Normal 0.0-0.5 [facility] Comment on above: Performed By: #### D ATA1C #### [facility] [address] [place] [address] Dr. Jodi Oglesby LYMPH # 1.8 103/ul Normal 1.2-3.8 [facility] Comment on above: Performed By: #### D ATA1C #### [facility] [address] [address] [address] Jodi Oglesby Lymphocytes/100 WBC (Bld) 17.2 % Critically low 20.5-60.0 [facility] Comment on above: Performed By: #### D ATA1C #### [facility] [address] [address] [address] Jodi Oglesby MANUAL DIFF REQ NO Normal [facility] Comment on above: Performed By: #### D ATA1C #### [facility] [address] [address] [address] Jdoi Oglesby MCH (RBC) [Entitic mass] 30.4 pg Normal 25.9-34.0 [facility] Comment on above: Performed By: #### D ATA1C #### [facility] [address] [address] [address] Jodi Oglesby MCHC (RBC) [Mass/Vol] 31.0 g/dL Normal 29.9-35.2 [facility] Comment on above: Performed By: #### D ATA1C #### [facility] [address] [address] [address] Jodi Oglesby MCV (RBC) [Entitic vol] 98.1 fL Critically high 80.0-94.0 [facility] Comment on above: Performed By: #### D ATA1C #### [facility] [address] [address] [address] Jodi Oglesby MONO # 1.0 103/ul Critically high 0.3-0.8 [facility] Comment on above: Performed By: #### D ATA1C #### [facility] [address] [address] [address] Jodi Oglesby Monocytes/100 WBC (Bld) 9.8 % Normal 1.7-12.0 [facility] Comment on above: Performed By: #### D ATA1C #### [facility] [address] [address] [address] Jodi Oglesby NEUT # 7.3 103/ul Critically high 1.4-6.5 [facility] Comment on above: Performed By: #### Chavez ATA1C #### [facility] [address] [address] [address] Jodi Oglesby Neutrophils/100 WBC (Bld) 70.7 % Normal 43.0-75.0 [facility] Comment on above: Performed By: #### D ATA1C #### [facility] [address] [address] [address] Jodi Oglesby Platelet mean volume (Bld) [Entitic vol] 9.1 fL Critically low 9.5-13.5 [facility] Comment on above: Performed By: #### D ATA1C #### [facility] [address] [address] [address] Jodi Oglesby PLT 214 103/ul Normal 150-450 [facility] Comment on above: Performed By: #### D ATA1C #### [facility] [address] [address] [address] Jodi Oglesby RBC 3.68 106/ul Critically low 4.70-6.10 [facility] Comment on above: Performed By: #### D ATA1C #### [facility] [address] [address] [address] Jodi Oglesby WBC 10.3 103/ul Normal 4.0-11.0 [facility] Comment on above: Performed By: #### D ATA1C #### [facility] [address] [address] [address] Jodi Oglesby PROF CHEM 8 (BAS METB)on Anion gap [Moles/Vol] 9.7 mmol/L Normal [facility] Comment on above: Performed By: #### C BC #### [facility] [address] [address] [address] Jodi Oglesby Calcium [Mass/Vol] 8.9 mg/dL Normal 8.5-10.1 [facility] Comment on above: Performed By: #### C BC #### [facility] [address] [place] [address] Dr. Jodi Oglesby Chloride [Moles/Vol] 102 mmol/L Normal 98-107 [facility] Comment on above: Performed By: #### C BC #### [facility] [address] [place] [address] Dr. Jodi Oglesby CO2 [Moles/Vol] 31.0 mmol/L Normal 21.0-32.0 [facility] Comment on above: Performed By: #### C BC #### [facility] [address] [place] [address] Dr. Jodi Oglesby Creatinine [Mass/Vol] 0.85 mg/dL Normal 0.70-1.30 [facility] Comment on above: Performed By: #### C BC #### [facility] [address] [place] [address] Dr. Jodi Oglesby EGFR-AF COOK ISLANDER >60 Normal >=60 [facility] Comment on above: Performed By: #### C BC #### [facility] [address] [address] [address] Jodi Oglesby EGFR-NON AF COOK ISLANDER >60 Normal >=60 [facility] Comment on above: Performed By: #### C BC #### [facility] [address] [address] [address] Jodi Oglesby Glucose [Mass/Vol] 106 mg/dL Normal 74-106 [facility] Comment on above: Performed By: #### C BC #### [facility] [address] [address] [address] Jodi Oglesby Potassium [Moles/Vol] 4.7 mmol/L Normal 3.5-5.1 [facility] Comment on above: Performed By: #### C BC #### [facility] [address] [address] [address] Jodi Oglesby Sodium [Moles/Vol] 138 mmol/L Normal 136-145 [facility] Comment on above: Performed By: #### C BC #### [facility] [address] [place] [address] Dr. Jodi Oglesby Urea nitrogen [Mass/Vol] 14.0 mg/dL Normal 7.0-18.0 [facility] Comment on above: Performed By: #### C BC #### [facility] [address] [place] [address] Dr. Jodi Oglesby Urea nitrogen/Creatinine [Mass ratio] 16.5 mg/mg Normal [facility] Comment on above: Performed By: #### C BC #### [facility] [address] [place] [address] Dr. Jodi Oglesby XR CHEST 2 Von [...] ROCIO RICARDO Date: 2021-12-08 16:20 Normal [facility] Covid-19 PCR (CVDTB)on 11-07 SARS-CoV-2 (COVID-19) RNA JESSIE+probe Ql (Unsp spec) Not detected Normal NOT DETECTED [facility] Comment on above: Result Comment: This test is not yet approved or cleared by the [place] FDA. When there are no FDA-approved or cleared tests available, and other criteria are met, FDA can make tests available under an emergency access mechanism called an Emergency Use Authorization (EUA). The EUA for this test is supported by the [place] of Health and Human Service's (HHS's) declaration [...] SARS-CoV-2. Performed By: #### C VDTB #### [facility] [address] [place] [address] Dr. Jodi Oglesby CBC AUTO DIFFon 11-11-2021 BASO # 0.1 103/ul Normal 0.0-0.1 [facility] Comment on above: Performed By: #### C BC #### [facility] [address] [place] [address] Dr. Jodi Oglesby Basophils/100 WBC (Bld) 0.5 % Normal 0.2-2.0 [facility] Comment on above: Performed By: #### C BC #### [facility] [address] [place] [address] Dr. Jodi Oglesby EO # 0.2 103/ul Normal 0.0-0.7 [facility] Comment on above: Performed By: #### C BC #### [facility] [address] [place] [address] Dr. Jodi Oglesby Eosinophils/100 WBC (Bld) 1.9 % Normal 0.9-7.0 [facility] Comment on above: Performed By: #### C BC #### [facility] [address] [place] [address] Dr. Jodi Oglesby Erythrocyte distribution width (RBC) [Ratio] 13.6 % Normal 11.0-15.0 [facility] Comment on above: Performed By: #### C BC #### [facility] [address] [place] [address] Dr. Jodi Oglesby Hematocrit (Bld) [Volume fraction] 28.6 % Critically low 42.0-54.0 [facility] Comment on above: Performed By: #### C BC #### [facility] [address] [place] [address] Dr. Jodi Oglesby Hemoglobin (Bld) [Mass/Vol] 9.4 g/dL Critically low 14.0-18.0 [facility] Comment on above: Performed By: #### C BC #### [facility] [address] [place] [address] Dr. Jodi Oglesby IG # 0.08 10e3/ul Critically high 0.00-0.03 [facility] Comment on above: Performed By: #### C BC #### [facility] [address] [place] [address] Dr. Jodi Oglesby IG % 0.8 % Critically high 0.0-0.5 [facility] Comment on above: Performed By: #### C BC #### [facility] [address] [place] [address] Dr. Jodi Oglesby LYMPH # 1.3 103/ul Normal 1.2-3.8 [facility] Comment on above: Performed By: #### C BC #### [facility] [address] [place] [address] Dr. Jodi Oglesby Lymphocytes/100 WBC (Bld) 13.0 % Critically low 20.5-60.0 [facility] Comment on above: Performed By: #### C BC #### [facility] [address] [place] [address] Dr. Jodi Oglesby MANUAL DIFF REQ NO Normal [facility] Comment on above: Performed By: #### C BC #### [facility] [address] [place] [address] Dr. Joid Oglesby MCH (RBC) [Entitic mass] 31.5 pg Normal 25.9-34.0 [facility] Comment on above: Performed By: #### C BC #### [facility] [address] [place] [address] Dr. Jodi Oglesby MCHC (RBC) [Mass/Vol] 32.9 g/dL Normal 29.9-35.2 [facility] Comment on above: Performed By: #### C BC #### [facility] [address] [place] [address] Dr. Jodi Oglesby MCV (RBC) [Entitic vol] 96.0 fL Critically high 80.0-94.0 [facility] Comment on above: Performed By: #### C BC #### [facility] [address] [place] [address] Dr. Jodi Oglesby MONO # 1.1 103/ul Critically high 0.3-0.8 [facility] Comment on above: Performed By: #### C BC #### [facility] [address] [place] [address] Dr. Jodi Oglesby Monocytes/100 WBC (Bld) 10.7 % Normal 1.7-12.0 [facility] Comment on above: Performed By: #### C BC #### [facility] [address] [place] [address] Dr. Jodi Oglesby NEUT # 7.4 103/ul Critically high 1.4-6.5 [facility] Comment on above: Performed By: #### C BC #### [facility] [address] [place] [address] Dr. Jodi Oglesby Neutrophils/100 WBC (Bld) 73.1 % Normal 43.0-75.0 [facility] Comment on above: Performed By: #### C BC #### [facility] [address] [place] [address] Dr. Jodi Oglesby Platelet mean volume (Bld) [Entitic vol] 9.3 fL Critically low 9.5-13.5 [facility] Comment on above: Performed By: #### C BC #### [facility] [address] [address] [address] Jodi Oglesby PLT 288 103/ul Normal 150-450 [facility] Comment on above: Performed By: #### C BC #### [facility] [address] [address] [address] Jodi Oglesby RBC 2.98 106/ul Critically low 4.70-6.10 [facility] Comment on above: Performed By: #### C BC #### [facility] [id number] Jodi Oglesby WBC 10.1 103/ul Normal 4.0-11.0 [facility] Comment on above: Performed By: #### C BC #### [facility] [address] [place] [address] ABD/PELVIS WO CONon [...] TAYO CASTILLO Date: 2021-11-11 03:10 Normal [facility] Covid-19 PCR ([facility])on SARS-CoV-2 (COVID-19) RNA JESSIE+probe Ql (Unsp spec) Not detected Normal NOT DETECTED [facility] Comment on above: Result Comment: When diagnostic [...] for this test is supported by the [place] of Health and Human Service's declaration that [...] used). Performed By: #### C BC #### [facility] [address] [place] [address] Dr. Jodi Oglesby OCC BLD IMMUNO SCREENon OCCULT BLOOD Negative Normal NEGATIVE [facility] Comment on above: Performed By: #### D ATA1C #### [facility] [address] [place] [address] Dr. Jodi Oglesby PROF 14(COMP METB)on 022 Albumin [Mass/Vol] 3.0 g/dL Critically low 3.4-5.0 [facility] [place] Comment on above: Performed By: #### C MP #### [facility] [address] [place] [address] Dr. Jodi Oglesby Albumin/Globulin [Mass ratio] 0.8 {ratio} Normal [facility] Comment on above: Performed By: #### C MP #### [facility] [address] [place] [address] Dr. Jodi Oglesby ALP [Catalytic activity/Vol] 126 U/L Critically high 46-116 [facility] Comment on above: Performed By: #### C MP #### [facility] [address] [place] [address] Dr. Jodi Oglesby ALT [Catalytic activity/Vol] 22 U/L Normal 16-63 [facility] Comment on above: Performed By: #### C MP #### [facility] [address] [place] [address] Dr. Jodi Oglesby Anion gap [Moles/Vol] 16.7 mmol/L Normal [facility] [place] Comment on above: Performed By: #### C MP #### [facility] [address] [place] [address] Dr. Jodi Oglesby AST [Catalytic activity/Vol] 23 U/L Normal 15-37 [facility] Comment on above: Performed By: #### C MP #### [facility] [address] [place] [address] Dr. Jodi Oglesby Bilirubin [Mass/Vol] 0.6 mg/dL Normal 0.2-1.0 [facility] Comment on above: Performed By: #### C MP #### [facility] [address] [address] [address] Jodi Oglesby Calcium [Mass/Vol] 8.5 mg/dL Normal 8.5-10.1 [facility] Comment on above: Performed By: #### C MP #### [facility] [address] [place] [address] Dr. Jodi Oglesby Chloride [Moles/Vol] 99 mmol/L Normal 98-107 [facility] Comment on above: Performed By: #### C MP #### [facility] [address] [place] [address] Dr. Jodi Oglesby CO2 [Moles/Vol] 27.4 mmol/L Normal 21.0-32.0 [facility] Comment on above: Performed By: #### C MP #### [facility] [address] [place] [address] Dr. Jodi Oglesby Creatinine [Mass/Vol] 0.80 mg/dL Normal 0.70-1.30 [facility] Comment on above: Performed By: #### C MP #### [facility] [address] [place] [address] Dr. Jodi Oglesby EGFR-AF COOK ISLANDER >60 Normal >=60 [facility] Comment on above: Performed By: #### C MP #### [facility] [address] [place] [address] Dr. Jodi Oglesby EGFR-NON AF COOK ISLANDER >60 Normal >=60 [facility] Comment on above: Performed By: #### C MP #### [facility] [address] [place] [address] Dr. Jodi Oglesby Globulin (S) [Mass/Vol] 3.9 g/dL Normal [facility] Comment on above: Performed By: #### C MP #### [facility] [address] [address] [address] Jodi Oglesby Glucose [Mass/Vol] 116 mg/dL Critically high 74-106 [facility] Comment on above: Performed By: #### C MP #### [facility] [address] [address] [address] Jodi Oglesby Potassium [Moles/Vol] 4.1 mmol/L Normal 3.5-5.1 [facility] Comment on above: Performed By: #### C MP #### [facility] [address] [address] [address] Jodi Oglesby Protein [Mass/Vol] 6.9 g/dL Normal 6.4-8.2 [facility] Comment on above: Performed By: #### C MP #### [facility] [address] [address] [address] Jodi Oglesby Sodium [Moles/Vol] 129 mmol/L Critically low 136-145 Th [facility] Comment on above: Performed By: #### C MP #### [facility] [address] [address] [address] Jodi Oglesby Urea nitrogen [Mass/Vol] 15.0 mg/dL Normal 7.0-18.0 [facility] Comment on above: Performed By: #### C MP #### [facility] [address] [address] [address] Jodi Oglesby Urea nitrogen/Creatinine [Mass ratio] 18.8 mg/mg Normal [facility] Comment on above: Performed By: #### C MP #### [facility] [address] [address] [address] Jodi Oglesby PROTIMEon 11-11-2021 INR Coag (PPP) [Relative time] 1.01 {INR} Normal [facility] Comment on above: Performed By: #### P TT, PT #### [facility] [address] [address] [address] Jodi Oglesby INR GUIDELINES SEE BELOW Normal [facility] Comment on above: Result Comment: ESHA RED INR: 2.0 - 3.0 CONDITIONS NOT LISTED BELOW 2.5 - 3.5 FOR PROSTHETIC HEART VALVE REPLACEMENT 2.5 - 3.5 RECURRENT THROMBOSIS Performed By: #### P TT, PT #### [facility] [address] [place] [address] Dr. Jodi Oglesby PT Coag (PPP) [Time] 10.9 s Normal 9.0-11.6 [facility] Comment on above: Performed By: #### P TT, PT #### [facility] [address] [place] [address] Dr. Jodi Oglesby PTTon 11-11-2021 aPTT Coag (Bld) [Time] 25.4 s Normal 22.3-36.2 Th [facility] Comment on above: Performed By: #### P TT, PT #### [facility] [address] [place] [address] Dr. Jodi Oglesby CBC AUTO DIFFon 10-26-2021 BASO # 0.0 103/ul Normal 0.0-0.1 [facility] Comment on above: Performed By: #### D ATA1C #### [facility] [address] [place] [address] Dr. Jodi Oglesby Basophils/100 WBC (Bld) 0.3 % Normal 0.2-2.0 [facility] Comment on above: Performed By: #### D ATA1C #### [facility] [address] [place] [address] Dr. Jodi Oglesby EO # 0.1 103/ul Normal 0.0-0.7 [facility] Comment on above: Performed By: #### D ATA1C #### [facility] [address] [place] [address] Dr. Jodi Oglesby Eosinophils/100 WBC (Bld) 0.5 % Critically low 0.9-7.0 [facility] Comment on above: Performed By: #### D ATA1C #### [facility] [address] [place] [address] Dr. Jodi Oglesby Erythrocyte distribution width (RBC) [Ratio] 12.4 % Normal 11.0-15.0 [facility] Comment on above: Performed By: #### D ATA1C #### [facility] [address] [address] [address] Jodi Oglesby Hematocrit (Bld) [Volume fraction] 39.5 % Critically low 42.0-54.0 [facility] Comment on above: Performed By: #### D ATA1C #### [facility] [address] [place] [address] Dr. Jodi Oglesby Hemoglobin (Bld) [Mass/Vol] 12.8 g/dL Critically low 14.0-18.0 [facility] Comment on above: Performed By: #### D ATA1C #### [facility] [address] [place] [address] Dr. Jodi Oglesby IG # 0.07 10e3/ul Critically high 0.00-0.03 [facility] Comment on above: Performed By: #### D ATA1C #### [facility] [address] [place] [address] Dr. Jodi Oglesby IG % 0.5 % Normal 0.0-0.5 [facility] Comment on above: Performed By: #### D ATA1C #### [facility] [address] [place] [address] Dr. Jodi Oglesby LYMPH # 0.9 103/ul Critically low 1.2-3.8 [facility] Comment on above: Performed By: #### D ATA1C #### [facility] [address] [place] [address] Dr. Jodi Oglesby Lymphocytes/100 WBC (Bld) 6.3 % Critically low 20.5-60.0 [facility] Comment on above: Performed By: #### D ATA1C #### [facility] [address] [place] [address] Dr. Jodi Oglesby MANUAL DIFF REQ NO Normal [facility] Comment on above: Performed By: #### D ATA1C #### [facility] [address] [place] [address] Dr. Jodi Oglesby MCH (RBC) [Entitic mass] 30.8 pg Normal 25.9-34.0 [facility] Comment on above: Performed By: #### D ATA1C #### [facility] [address] [address] [address] Jodi Oglesby MCHC (RBC) [Mass/Vol] 32.4 g/dL Normal 29.9-35.2 [facility] Comment on above: Performed By: #### D ATA1C #### [facility] [address] [address] [address] Jdoi Oglesby MCV (RBC) [Entitic vol] 95.2 fL Critically high 80.0-94.0 [facility] Comment on above: Performed By: #### D ATA1C #### [facility] [address] [address] [address] Jodi Oglesby MONO # 0.9 103/ul Critically high 0.3-0.8 [facility] Comment on above: Performed By: #### D ATA1C #### [facility] [address] [place] [address] Dr. Jodi Oglesby Monocytes/100 WBC (Bld) 6.2 % Normal 1.7-12.0 [facility] Comment on above: Performed By: #### D ATA1C #### [facility] [address] [address] [address] Jodi Oglesby NEUT # 12.8 103/ul Critically high 1.4-6.5 [facility] Comment on above: Performed By: #### D ATA1C #### [facility] [address] [address] [address] Jodi Oglesby Neutrophils/100 WBC (Bld) 86.2 % Critically high 43.0-75.0 [facility] Comment on above: Performed By: #### D ATA1C #### [facility] [address] [address] [address] Jodi Oglesby Platelet mean volume (Bld) [Entitic vol] 9.4 fL Critically low 9.5-13.5 [facility] Comment on above: Performed By: #### D ATA1C #### [facility] [address] [address] [address] Jodi Oglesby PLT 169 103/ul Normal 150-450 [facility] Comment on above: Performed By: #### D ATA1C #### [facility] [address] [place], [place] [address] Dr. Jodi Oglesby RBC 4.15 106/ul Critically low 4.70-6.10 [facility] Comment on above: Performed By: #### D ATA1C #### [facility] [address] [place], [place] [address] Dr. Jodi Oglesby WBC 14.8 103/ul Critically high 4.0-11.0 [facility] Comment on above: Performed By: #### D ATA1C #### [facility] [address] [place], [place] [address] CHEST WO CONon [...] by: NICOLE SIMMS Date: 2021-10-26 17:38 Normal [facility] Covid-19 PCR (CVDTBH)on 10-07 SARS-CoV-2 (COVID-19) RNA JESSIE+probe Ql (Unsp spec) Not detected Normal NOT DETECTED [facility] Comment on above: Result Comment: When diagnostic [...] for this test is supported by the [place] of Health and Human Service's declaration that [...] used). Performed By: #### D ATA1C #### [facility] [address] [place] [address] Dr. Jodi Oglseby PROF CHEM 8 (BAS METB)on Anion gap [Moles/Vol] 11.7 mmol/L Normal [facility] Comment on above: Performed By: #### C BC #### [facility] [address] [place] [address] Dr. Jodi Oglesby Calcium [Mass/Vol] 9.2 mg/dL Normal 8.5-10.1 [facility] Comment on above: Performed By: #### C BC #### [facility] [address] [place] [address] Dr. Jodi Oglesby Chloride [Moles/Vol] 101 mmol/L Normal 98-107 [facility] Comment on above: Performed By: #### C BC #### [facility] [address] [place] [address] Dr. Jodi Oglesby CO2 [Moles/Vol] 27.6 mmol/L Normal 21.0-32.0 [facility] Comment on above: Performed By: #### C BC #### [facility] [address] [address] [address] Jodi Oglesby Creatinine [Mass/Vol] 0.98 mg/dL Normal 0.70-1.30 [facility] Comment on above: Performed By: #### C BC #### [facility] [address] [place] [address] Dr. Jodi Oglesby EGFR-AF C[place] ISLANDER >60 Normal >=60 [facility] Comment on above: Performed By: #### C BC #### [facility] [address] [place] [address] Dr. Jodi Oglesby EGFR-NON AF [place] ISLANDER >60 Normal >=60 [facility] Comment on above: Performed By: #### C BC #### [facility] [address] [place] [address] Dr. Jodi Oglesby Glucose [Mass/Vol] 119 mg/dL Critically high 74-106 T [facility] Comment on above: Performed By: #### C BC #### [facility] [address] [place] [address] Dr. Jodi Oglesby Potassium [Moles/Vol] 4.3 mmol/L Normal 3.5-5.1 [facility] Comment on above: Performed By: #### C BC #### [facility] [address] [place] [address] Dr. Jodi Oglesby Sodium [Moles/Vol] 136 mmol/L Normal 136-145 [facility] Comment on above: Performed By: #### C BC #### [facility] [address] [place] [address] Dr. Jodi Oglesby Urea nitrogen [Mass/Vol] 15.0 mg/dL Normal 7.0-18.0 [facility] Comment on above: Performed By: #### C BC #### [facility] [address] [place] [address] Dr. Jodi Oglesby Urea nitrogen/Creatinine [Mass ratio] 15.3 mg/mg Normal [facility] Comment on above: Performed By: #### C BC #### [facility] [address] [place] [address] Dr. Jodi Oglesby XR CLAVICLE RTon 10-26-2021 [...] by: JANE ALDANA Date: 2021-10-26 15:37 Normal [facility] XR ELBOW RT MIN 3 VIEWSon [...] DEL CHAKRABORTY Date: 2021-10-26 17:23 Normal [facility] XR HIP RT 2 3V W PELVISon [...] by: CHARLES ALEJANDRA Date: 2021-10-26 15:40 Normal [facility] CARDIAC STRESS/REST INJE CTIONon 10-21-2021 [facility] CARDIAC STRESS/REST INJECTION Patient Name: CHICO BAKER STUDY: MYOCARDIAL PERFUSION STRESS TEST WITH LEXISCAN Performing facility: [facility], [address] [place] [address], [address], [place] [id number] [facility] Provider: Adilene Harrington MD, MERGED WITH [facility] PCP: Dr. Jori Dunham Supervising provider: Adilene Harrington MD, MERGED WITH [facility] INDICATION: AAA Pre-operative risk assessment for AAA scheduled at [facility] [place] D. HISTORY: Gender: M; Age: 81 y/o ; Height: 0 cm; Weight: 0 kg. HTN; Carotid disease PAD AAA Denies smoking. COMPARISON: Previous nuclear testing completed at [place]. Previous echo testing completed on 2020 at [facility] [place] ACCESSION NUMBER(S): [id number]; [id number]; [id number] ORDERING CLINICIAN: JUDAH HARRINGTON TECHNIQUE: ONE DAY [...] Electronically signed by: ALL HUDSON MD Normal [facility] No Panel Informationon 10-21 Normal -[facility] [place] Work Phone: COVID-19 Positive/NegativeOr dered By: Raul Quan on 10-13-2021 SARS-CoV-2 (COVID-19) N gene JESSIE+probe Ql (Resp) Negative Negative [facility] Comment on above: Testing for SARS-CoV -2 by RT-PCR This test was developed and its performance characteristics determined by [employer] ([employer] and validated at the [facility]. This test has not been FDA [...] 10-06-2021 Basophils (Bld) [#/Vol] 0.0 10*3/uL 0.0-0.2 [facility] Basophils/100 WBC Auto (Bld) Ordered By: Raul Quan on 10-06-2021 Basophils/100 WBC (Bld) 0.7 % . [facility] Blood hemoglobin measurement (mass/volume)Ordered By: Raul Quan on 10-06-2021 Hemoglobin (Bld) [Mass/Vol] 13.1 g/dL 13.0-17.0 [facility] Blood leukocytes automated c ount (number/volume)Ordered By: Raul Quan on 10-06-2021 WBC (Bld) [#/Vol] 5.2 10*3/uL 4.5-11.0 [facility] Creatinine and Glomerular fi ltration rate.predicted panel (S/P/Bld)Ordered By: Raul Quan on 10-06-2021 Creatinine [Mass/Vol] 0.98 mg/dL 0.64-1.[address] [facility] Eosinophils Auto (Bld) [#/Vo l]Ordered By: Raul Quan on 10-06-2021 Eosinophils (Bld) [#/Vol] 0.1 10*3/uL 0.0-0.45 [facility] Eosinophils/100 WBC Auto (Bl d)Ordered By: Raul Quan on 10-06-2021 Eosinophils/100 WBC (Bld) 1.3 % . [facility] Erythrocyte distribution wid th Auto (RBC) [Ratio]Ordered By: Raul Quan on 10-06-2021 Erythrocyte distribution width (RBC) [Ratio] 13.3 % 12.0-14.8 [facility] Estimated glomerular filtrat ion rate (GFR) non- AmericanOrdered By: Raul Quan on 10-06-2021 GFR/1.73 sq M.predicted among non-blacks MDRD (S/P/Bld) [Vol rate/Area] > 60 mL/Min [facility] Hematocrit Auto (Bld) [Volum e fraction]Ordered By: Raul Quan on 10-06-2021 Hematocrit (Bld) [Volume fraction] 40.4 % 38.8-50.0 [facility] Laboratory - Hematology and Cell countsOrdered By: Raul Quan on 10-06-2021 Nucleated RBC/100 WBC (Bld) [Ratio] 0.0 % 0-0.5 [facility] Lymphocytes Auto (Bld) [#/Vo l]Ordered By: Raul Quan on 10-06-2021 Lymphocytes (Bld) [#/Vol] 1.0 10*3/uL 1.00-4.8 [facility] Lymphocytes/100 WBC Auto (Bl d)Ordered By: Raul Quan on 10-06-2021 Lymphocytes/100 WBC (Bld) 18.4 % . [facility] MCH Auto (RBC) [Entitic mass ]Ordered By: Raul Quan on 10-06-2021 MCH (RBC) [Entitic mass] 30.9 pg 27.5-35.2 [facility] MCHC Auto (RBC) [Mass/Vol]Or dered By: Raul uQan on 10-06-2021 MCHC (RBC) [Mass/Vol] 32.5 g/dL 32.5-35.6 [facility] MCV Auto (RBC) [Entitic vol] Ordered By: Raul Quan on 10-06-2021 MCV (RBC) [Entitic vol] 95.2 fL 83.5-101 [facility] Monocytes Auto (Bld) [#/Vol] Ordered By: Raul Quan on 10-06-2021 Monocytes (Bld) [#/Vol] 0.6 10*3/uL 0.0-0.8 [facility] Monocytes/100 WBC Auto (Bld) Ordered By: Raul Quan on 10-06-2021 Monocytes/100 WBC (Bld) 12.0 % . [facility] Neutrophils Auto (Bld) [#/Vo l]Ordered By: aRul Quan on 10-06-2021 Neutrophils (Bld) [#/Vol] 3.5 10*3/uL 1.8-7.7 [facility] Neutrophils/100 WBC Auto (Bl d)Ordered By: Raul Quan on 10-06-2021 Neutrophils/100 WBC (Bld) 67.6 % . [facility] No Panel InformationOrdered By: Raul Quan on 10-06-2021 Estimated GFR () > 60 mL/Min [facility] Comment on above: GFR estimated refere nce range: According to KDOQI guidelines, <60 ml/min/1.73m2 is sufficient to diagnose a patient with chronic kidney disease. Pharmacy Creatinine Clearance (Chem N/A [facility] Platelet mean volume Auto (B ld) [Entitic vol]Ordered By: Raul Quan on 10-06-2021 Platelet mean volume (Bld) [Entitic vol] 8.1 fL 6.6-10.1 [facility] Platelets Auto (Bld) [#/Vol] Ordered By: Raul Quan on 10-06-2021 Platelets (Bld) [#/Vol] 185 10*3/uL 150-450 [facility] RBC Auto (Bld) [#/Vol]Ordere d By: Raul Quan on 10-06-2021 RBC (Bld) [#/Vol] 4.25 10*6/uL 3.90-5.60 [facility] Serum or plasma calcium richy urement (mass/volume)Ordered By: Raul Quan on 10-06-2021 Calcium [Mass/Vol] 9.0 mg/dL 8.2-10.2 [facility] Serum or plasma chloride young surement (moles/volume)Ordered By: Raul Quan on 10-06-2021 Chloride [Moles/Vol] 101 mmol/L 95-[address] [facility] Serum or plasma glucose richy urement (mass/volume)Ordered By: Raul Quan on 10-06-2021 Glucose [Mass/Vol] 187 mg/dL 70-100 [facility] Comment on above: ADA recommended refe rence range Random Glucose Reference Range is dependent on time and content of last meal. Glucose of more than 200 mg/dL in a nonstressed, ambulatory subject supports the diagnosis of Diabetes Mellitus. Serum or plasma potassium me asurement (moles/volume)Ordered By: Raul Quan on 10-06-2021 Potassium [Moles/Vol] 4.0 mmol/L 3.5-5.[address] [facility] Serum or plasma sodium measu rement (moles/volume)Ordered By: Raul Quan on 10-06-2021 Sodium [Moles/Vol] 135 mmol/L 136-146 [facility] Serum or plasma total carbon dioxide measurement (moles/volume)Ordered By: Raul Quan on 10-06-2021 CO2 [Moles/Vol] 25.1 mmol/L 22.0-30.0 [facility] Serum or plasma urea nitroge n measurement (mass/volume)Ordered By: Raul Quan on 10-06-2021 Urea nitrogen [Mass/Vol] 13 mg/dL 9-23 [facility] CBC AUTO DIFFon 09-22-2021 BASO # 0.0 103/ul Normal 0.0-0.1 [facility] Comment on above: Performed By: #### C BC #### [facility] [address] [address] [address] Jodi Oglesby Basophils/100 WBC (Bld) 0.3 % Normal 0.2-2.0 [facility] Comment on above: Performed By: #### C BC #### [facility] [address] [address] [address] Jodi Oglesby EO # 0.1 103/ul Normal 0.0-0.7 [facility] Comment on above: Performed By: #### C BC #### [facility] [address] [address] [address] Jodi Oglesby Eosinophils/100 WBC (Bld) 0.8 % Critically low 0.9-7.0 [facility] Comment on above: Performed By: #### C BC #### [facility] [address] [address] [address] Jodi Oglesby Erythrocyte distribution width (RBC) [Ratio] 12.5 % Normal 11.0-15.0 [facility] Comment on above: Performed By: #### C BC #### [facility] [address] [address] [address] Jodi Oglesby Hematocrit (Bld) [Volume fraction] 43.6 % Normal 42.0-54.0 [facility] Comment on above: Performed By: #### C BC #### [facility] [address] [address] [address] Jodi Oglesby Hemoglobin (Bld) [Mass/Vol] 14.1 g/dL Normal 14.0-18.0 [facility] Comment on above: Performed By: #### C BC #### [facility] [address] [place] [address] Dr. Jodi Oglesby IG # 0.03 10e3/ul Normal 0.00-0.03 [facility] Comment on above: Performed By: #### C BC #### [facility] [address] [place] [address] Dr. Jodi Oglesby IG % 0.3 % Normal 0.0-0.5 [facility] Comment on above: Performed By: #### C BC #### [facility] [address] [place] [address] Dr. Jodi Oglesby LYMPH # 1.5 103/ul Normal 1.2-3.8 [facility] Comment on above: Performed By: #### C BC #### [facility] [address] [place] [address] Dr. Jodi Oglesby Lymphocytes/100 WBC (Bld) 17.2 % Critically low 20.5-60.0 [facility] Comment on above: Performed By: #### C BC #### [facility] [address] [place] [address] Dr. Jodi Oglesby MANUAL DIFF REQ NO Normal [facility] Comment on above: Performed By: #### C BC #### [facility] [address] [place] [address] Dr. Jodi Oglesby MCH (RBC) [Entitic mass] 31.1 pg Normal 25.9-34.0 [facility] Comment on above: Performed By: #### C BC #### [facility] [address] [place] [address] Dr. Jodi Oglesby MCHC (RBC) [Mass/Vol] 32.3 g/dL Normal 29.9-35.2 [facility] Comment on above: Performed By: #### C BC #### [facility] [address] [place] [address] Dr. Jodi Oglesby MCV (RBC) [Entitic vol] 96.0 fL Critically high 80.0-94.0 [facility] Comment on above: Performed By: #### C BC #### [facility] [address] [place], [place] [id number] Dr. Jodi Oglesby MONO # 1.0 103/ul Critically high 0.3-0.8 [facility] Comment on above: Performed By: #### C BC #### [facility] [address] [place] [address] Dr. Jodi Oglesby Monocytes/100 WBC (Bld) 10.8 % Normal 1.7-12.0 [facility] Comment on above: Performed By: #### C BC #### [facility] [address] [place] [address] Dr. Jodi Oglesby NEUT # 6.2 103/ul Normal 1.4-6.5 [facility] Comment on above: Performed By: #### C BC #### [facility] [address] [place] [address] Dr. Jodi Oglesby Neutrophils/100 WBC (Bld) 70.6 % Normal 43.0-75.0 [facility] Comment on above: Performed By: #### C BC #### [facility] [address] [place] [address] Dr. Jodi Oglesby Platelet mean volume (Bld) [Entitic vol] 9.6 fL Normal 9.5-13.5 [facility] Comment on above: Performed By: #### C BC #### [facility] [address] [place] [address] Dr. Jodi Oglesby PLT 206 103/ul Normal 150-450 [facility] Comment on above: Performed By: #### C BC #### [facility] [address] [place] [address] Dr. Jodi Oglesby RBC 4.54 106/ul Critically low 4.70-6.10 [facility] Comment on above: Performed By: #### C BC #### [facility] [address] [place] [address] Dr. Jodi Oglesby WBC 8.8 103/ul Normal 4.0-11.0 [facility] Comment on above: Performed By: #### C BC #### [facility] [address] [place] [address] Dr. Jodi Oglesby PROF CHEM 8 (BAS METB)on Anion gap [Moles/Vol] 9.5 mmol/L Normal [facility] Comment on above: Performed By: #### B MP #### [facility] [address] [address] [address] Jodi Oglesby Calcium [Mass/Vol] 9.4 mg/dL Normal 8.5-10.1 [facility] Comment on above: Performed By: #### B MP #### [facility] [address] [address] [address] Jodi Oglesby Chloride [Moles/Vol] 100 mmol/L Normal 98-107 [facility] Comment on above: Performed By: #### B MP #### [facility] [address] [address] [address] Jodi Oglesby CO2 [Moles/Vol] 33.2 mmol/L Critically high 21.0-32.0 [facility] Comment on above: Performed By: #### B MP #### [facility] [address] [address] [address] Jodi Oglesby Creatinine [Mass/Vol] 0.99 mg/dL Normal 0.70-1.30 [facility] Comment on above: Performed By: #### B MP #### [facility] [address] [place] [address] Dr. Jodi Oglesby EGFR-AF COOK ISLANDER >60 Normal >=60 [facility] Comment on above: Performed By: #### B MP #### [facility] [address] [address] [address] Jodi Oglesby EGFR-NON AF COOK ISLANDER >60 Normal >=60 [facility] Comment on above: Performed By: #### B MP #### [facility] [address] [address] [address] Jodi Oglesby Glucose [Mass/Vol] 109 mg/dL Critically high 74-[address] [facility] Comment on above: Performed By: #### B MP #### [facility] [address] [place] [address] Dr. Jodi Oglesby Potassium [Moles/Vol] 4.7 mmol/L Normal 3.5-5.1 [facility] Comment on above: Performed By: #### B MP #### [facility] [address] [address] [address] Jodi Oglesby Sodium [Moles/Vol] 138 mmol/L Normal 136-145 [facility] Comment on above: Performed By: #### B MP #### [facility] [address] [address] [address] Jodi Oglesby Urea nitrogen [Mass/Vol] 17.0 mg/dL Normal 7.0-18.0 [facility] Comment on above: Performed By: #### B MP #### [facility] [address] [address] [address] Jodi Oglesby Urea nitrogen/Creatinine [Mass ratio] 17.2 mg/mg Normal [facility] Comment on above: Performed By: #### B MP #### [facility] [address] [address] [address] Jodi Oglesby Creatinine (Bld) [Mass/Vol]O rdered By: Tamar Perea on 09-18-2021 Creatinine [Mass/Vol] 0.8 mg/dL 0.6-1.[address] [facility] Comment on above: ER/ESD physician is notified/shown all ISTAT results. Critical values may be confirmed by laboratory testing if deemed necessary by ER attending doctor. No Panel InformationOrdered By: Tamar Perea on 09-18-2021 POC Estimated GFR > 60 [facility] Comment on above: GFR estimated refere nce range: According to KDOQI guidelines, <60 ml/min/1.73m2 is sufficient to diagnose a patient with chronic kidney disease. POC Estimated GFR Non- Amer > 60 [facility] CBC AUTO DIFFon 08-12-2021 BASO # 0.0 103/ul Normal 0.0-0.1 [facility] Comment on above: Performed By: #### C BC #### [facility] [address] [address] [address] Jodi Oglesby Basophils/100 WBC (Bld) 0.3 % Normal 0.2-2.0 [facility] Comment on above: Performed By: #### C BC #### [facility] [address] [place] [address] Dr. Jodi Oglesby EO # 0.1 103/ul Normal 0.0-0.7 [facility] Comment on above: Performed By: #### C BC #### [facility] [address] [place] [address] Dr. Jodi Oglesby Eosinophils/100 WBC (Bld) 1.8 % Normal 0.9-7.0 [facility] Comment on above: Performed By: #### C BC #### [facility] [address] [place] [address] Dr. Jodi Oglesby Erythrocyte distribution width (RBC) [Ratio] 12.6 % Normal 11.0-15.0 [facility] Comment on above: Performed By: #### C BC #### [facility] [address] [place] [address] Dr. Jodi Oglesby Hematocrit (Bld) [Volume fraction] 40.9 % Critically low 42.0-54.0 [facility] Comment on above: Performed By: #### C BC #### [facility] [address] [place] [address] Dr. Jodi Oglesby Hemoglobin (Bld) [Mass/Vol] 13.4 g/dL Critically low 14.0-18.0 [facility] Comment on above: Performed By: #### C BC #### [facility] [address] [place] [address] Dr. Jodi Oglesby IG # 0.03 10e3/ul Normal 0.00-0.03 [facility] Comment on above: Performed By: #### C BC #### [facility] [address] [place] [address] Dr. Jodi Oglesby IG % 0.4 % Normal 0.0-0.5 [facility] Comment on above: Performed By: #### C BC #### [facility] [address] [place] [address] Dr. Jodi Oglesby LYMPH # 1.4 103/ul Normal 1.2-3.8 [facility] Comment on above: Performed By: #### C BC #### [facility] [address] [place] [address] Dr. Jodi Oglesby Lymphocytes/100 WBC (Bld) 18.6 % Critically low 20.5-60.0 [facility] Comment on above: Performed By: #### C BC #### [facility] [address] [place] [address] Dr. Jodi Oglesby MCH (RBC) [Entitic mass] 31.5 pg Normal 25.9-34.0 [facility] Comment on above: Performed By: #### C BC #### [facility] [address] [place] [address] Dr. Jodi Oglesby MCHC (RBC) [Mass/Vol] 32.8 g/dL Normal 29.9-35.2 [facility] Comment on above: Performed By: #### C BC #### [facility] [address] [place] [address] Dr. Jodi Oglesby MCV (RBC) [Entitic vol] 96.0 fL Critically high 80.0-94.0 [facility] Comment on above: Performed By: #### C BC #### [facility] [address] [place] [address] Dr. Jodi Oglesby MONO # 0.7 103/ul Normal 0.3-0.8 [facility] Comment on above: Performed By: #### C BC #### [facility] [address] [place] [address] Dr. Jodi Oglesby Monocytes/100 WBC (Bld) 9.7 % Normal 1.7-12.0 [facility] Comment on above: Performed By: #### C BC #### [facility] [address] [place] [address] Dr. Jodi Oglesby NEUT # 5.1 103/ul Normal 1.4-6.5 [facility] Comment on above: Performed By: #### C BC #### [facility] [address] [place] [address] Dr. Jodi Oglesby Neutrophils/100 WBC (Bld) 69.2 % Normal 43.0-75.0 [facility] Comment on above: Performed By: #### C BC #### [facility] [address] [place] [address] Dr. Jodi Oglesby Platelet mean volume (Bld) [Entitic vol] 9.8 fL Normal 9.5-13.5 [facility] Comment on above: Performed By: #### C BC #### [facility] [address] [place] [address] Dr. Jodi Oglesby PLT 195 103/ul Normal 150-450 [facility] Comment on above: Performed By: #### C BC #### [facility] [address] [place] [address] Dr. Jodi Oglesby RBC 4.26 106/ul Critically low 4.70-6.10 [facility] Comment on above: Performed By: #### C BC #### [facility] [address] [place] [address] Dr. Jodi Oglesby WBC 7.4 103/ul Normal 4.0-11.0 [facility] Comment on above: Performed By: #### C BC #### [facility] [address] [place] [address] Dr. Jodi Oglesby ASHLEY - TSHon 08-12-2021 TSH 1.879 uIU/mL Normal 0.358-3.74 0 [facility] Comment on above: Performed By: #### D ATTSH DATBMP #### [facility] [address] [place] [address] Dr. Jodi Oglesby TSH RANGE SEE BELOW Normal [facility] Comment on above: Result Comment: <0.3 4 UIU/ml HYPERTHYROID 0.34-5.60 UIU/ml EUTHYROID >5.60 UIU/ml HYPOTHYROID Performed By: #### D ATTSH, DATBMP #### [facility] [address] [place] [address] Dr. Jodi Oglesby ASHLEY- BMP WITH LIPIDon 2021 Anion gap [Moles/Vol] 11.4 mmol/L Normal [facility] Comment on above: Performed By: #### D ATTSH, DATBMP #### [facility] [address] [place] [address] Dr. Jodi Oglesby Calcium [Mass/Vol] 8.7 mg/dL Normal 8.5-10.1 [facility] Comment on above: Performed By: #### D LULU DATBMP #### [facility] [address] [address] [address] Jodi Oglesby Chloride [Moles/Vol] 105 mmol/L Normal 98-107 [facility] Comment on above: Performed By: #### D LULU DATBMP #### [facility] [address] [address] [address] Jodi Oglesby Cholesterol [Mass/Vol] 113 mg/dL Normal <=200 [facility] Comment on above: Performed By: #### D LULU DATBMP #### [facility] [address] [place] [address] Dr. Jodi Oglesby Cholesterol in HDL [Mass/Vol] 47 mg/dL Normal 40-60 [facility] Comment on above: Performed By: #### D LULU DATBMP #### [facility] [address] [place] [address] Dr. Jodi Oglesby Cholesterol in LDL [Mass/Vol] 58.0 mg/dL Normal [facility] Comment on above: Performed By: #### D LULU DATBMP #### [facility] [address] [place] [address] Dr. Jodi Oglesby CO2 [Moles/Vol] 29.0 mmol/L Normal 21.0-32.0 [facility] Comment on above: Performed By: #### D LULU DATBMP #### [facility] [address] [place] [address] Dr. Jodi Oglesby Creatinine [Mass/Vol] 0.99 mg/dL Normal 0.70-1.30 [facility] Comment on above: Performed By: #### D ATTKENDELL DATBMP #### [facility] [address] [address] [address] Jodi Oglesby EGFR-AF [place]OOK ISLANDER >60 Normal >=60 [facility] Comment on above: Performed By: #### D ATTKENDELL DATBMP #### [facility] [address] [address] [address] Jodi Oglesby EGFR-NON AF [place] ISLANDER >60 Normal >=60 [facility] Comment on above: Performed By: #### D LULU DATBMP #### [facility] [address] [address] [address] Jodi Oglesby Glucose [Mass/Vol] 116 mg/dL Critically high 74-106 [facility] Comment on above: Performed By: #### D LULU DATBMP #### [facility] [address] [address] [address] Jodi Oglesby HDL NORMAL > or = 60 mg/dl - LO W CARDIOVASCULAR RISK <40 mg/dl - HIGH CARDIOVASCULAR RISK Normal [facility] Comment on above: Performed By: #### D LULU DATBMP #### [facility] [address] [place] [address] Dr. Jodi Oglesby LDL CALC NORMAL SEE BELOW Normal [facility] Comment on above: Result Comment: <100 mg/dl OPTIMAL 100 - 129 mg/dl NEAR OR ABOVE OPTIMAL 130 - 159 mg/dl BORDERLINE HIGH 160 - 189 mg/dl HIGH >190 mg/dl VERY HIGH Performed By: #### D LULU DATBMP #### [facility] [address] [address] [address] Jodi Oglesby Potassium [Moles/Vol] 4.4 mmol/L Normal 3.5-5.1 [facility] Comment on above: Performed By: #### D LULU DATBMP #### [facility] [address] [address] [address] Jodi Oglesby Sodium [Moles/Vol] 141 mmol/L Normal 136-145 [facility] Comment on above: Performed By: #### D LULU DATBMP #### [facility] [address] [place] [address] Dr. Jodi Oglesby Triglyceride [Mass/Vol] 40 mg/dL Normal <=150 [facility] Comment on above: Performed By: #### D LULU DATBMP #### [facility] [address] [place] [address] Dr. Jodi Oglesby Urea nitrogen [Mass/Vol] 16.0 mg/dL Normal 7.0-18.0 [facility] Comment on above: Performed By: #### D LULU DATBMP #### [facility] Laboratory [address] [address] [address] Jodi Oglesby Urea nitrogen/Creatinine [Mass ratio] 16.2 mg/mg Normal [facility] Comment on above: Performed By: #### Chavez LAWSON DATBMP #### [facility] [address] [address] [address] Jodi Oglesby VLDL CALC 8.0 mg/dL Normal [facility] Comment on above: Performed By: #### VALERIE TOUREP #### [facility] [address] [place] [address] Dr. Jodi Oglesby GLYCOHEMOGLOBIN A1Con 2021 ADA RECOMMENDATION SEE BELOW Normal [facility] Comment on above: Result Comment: ADA RECOMMENDED LIMIT 4.0 - 6.0 ADA THERAPEUTIC TARGET < 7.0 ACTION SUGGESTED > 7.0 Performed By: #### D ATA1C #### [facility] [address] [address] [address] Jodi Oglesby Glucose [Mass/Vol] 131 mg/dL Normal [facility] Comment on above: Performed By: #### D ATA1C #### [facility] [address] [address] [address] Jodi Oglesby HbA1c (Bld) [Mass fraction] 6.2 % Normal 4.5-6.2 [facility] Comment on above: Performed By: #### D ATA1C #### [facility] [address] [address] [address] Jodi Oglesby CNOVon 12-11-2020 CNOV Office Visit ([facility]ASSMD ) -- CHICO BAKER ([id number]) 1940 M Date Time Provider Department 12/11/20 10:45 AM POWER CATHERINE During your visit today, we recorded the following information about you: Pulse Blood pressure Weight Height 60/minute 122/78 67.6 kg 1.702 m Power Catherine MD 12/11/2020 11:17 AM Signed [facility] OUTPATIENT VISIT DATE December 11, 2020 OUTPATIENT VISIT TYPE EST PRIMARY CARE PHYSICIAN: Shailesh Dunham (Jere) [address] [place] [address] REFERRING PHYSICIAN Power Catherine [address] [facility] [address] CHIEF COMPLAINT: Patient presents with: Established Patient [...] Power Catherine MD Referring Provider: POWER CATHERINE [[id number]] Allergies As of Date: 12/11/2020 Noted Allergy Reaction SHALINI INHIBITORS 05/09/2015 16 - Unknown GADOLINIUM-CONTAINING CONTRAST ME*05/09/2015 16 - Unknown TETANUS VACCINES AND TOXOID 05/16/2015 16 - Unknown Date Reviewed: 12/11/2020 Reviewed by: Harika Menjivar - Fully Assessed Reason for Visit: Established Patient [175] Follow Up [171] 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 - nitroglycerin sublingual (NITROQUICK) 0.3 mg SL tablet (more content not included)... Normal [facility] 10-30-2020 CNPN Telephone ([facility]) -- CHICO BAKER ([id number]) 1940 M Date Time Provider Department 10/30/20 [...] [I71.4] Order(s):US ABD AORTA COMPLETE [facility] [[id number]] Order #: [id number] FUTURE Prescriptions as of 11/04/2020 - aspirin, [...] Status:Closed by SHERI MOLINA on 11/04/20 Normal [facility] Vital Signs Date Time Vital Sign Value Performing Clinician Facility 11-23-2023 10:05-0400 Body height 170.18 cm DO [employer] Work Phone: [facility] 11-23-2023 10:05-0400 Body mass index (BMI) [Ratio] 20.9 kg/m2 DO Shailesh Infinia Work Phone: [facility] 11-23-2023 10:05-0400 Body weight 60.78 kg DO Shailesh Ball Work Phone: [facility] 11-23-2023 10:05-0400 Diastolic blood pressure 61 mm[Hg] DO Shailesh Ball Work Phone: [facility] 11-23-2023 10:05-0400 Heart rate 67 /min DO Shailesh Ball Work Phone: [facility] 11-23-2023 10:05-0400 Respiratory rate 12 /min DO Shailesh Ball Work Phone: [facility] 11-23-2023 10:05-0400 Systolic blood pressure 98 mm[Hg] DO Shailesh Ball Work Phone: [facility] 11-15-2023 10:21-0400 Body temperature 96.5 [degF] DO Shailesh Ball Work Phone: [facility] 11-15-2023 10:21-0400 Diastolic blood pressure 60 mm[Hg] DO Shailesh Ball Work Phone: [facility] 11-15-2023 10:21-0400 Heart rate 56 /min DO Shailesh Ball Work Phone: [facility] 11-15-2023 10:21-0400 SaO2% (BldA) [Mass fraction] 97 % DO Shailesh Ball Work Phone: [facility] 11-15-2023 10:21-0400 Systolic blood pressure 138 mm[Hg] DO Shailesh Ball Work Phone: [facility] 10-21-2023 09:08-0400 Body height 170.18 cm DO Shailesh Ball Work Phone: [facility] 10-21-2023 09:08-0400 Body mass index (BMI) [Ratio] 20.9 kg/m2 DO Shailesh Ball Work Phone: [facility] 10-21-2023 09:08-0400 Body weight 60.55 kg DO Shailesh Ball Work Phone: [facility] 10-21-2023 09:08-0400 Diastolic blood pressure 58 mm[Hg] DO Shailesh Ball Work Phone: [facility] 10-21-2023 09:08-0400 Heart rate 65 /min DO Shailesh Ball Work Phone: [facility] 10-21-2023 09:08-0400 Respiratory rate 12 /min DO Shailesh Ball Work Phone: [facility] 10-21-2023 09:08-0400 Systolic blood pressure 102 mm[Hg] DO Shailesh Ball Work Phone: [facility] 09-03-2023 08:49-0400 Body height 170.18 cm DO Shailesh Ball Work Phone: [facility] 09-03-2023 08:49-0400 Body mass index (BMI) [Ratio] 21.9 kg/m2 DO Shailesh Ball Work Phone: [facility] 09-03-2023 08:49-0400 Body weight 63.5 kg DO Shailesh Ball Work Phone: [facility] 09-03-2023 08:49-0400 Diastolic blood pressure 58 mm[Hg] DO Shailesh Ball Work Phone: [facility] 09-03-2023 08:49-0400 Heart rate 63 /min DO Shailesh Ball Work Phone: [facility] 09-03-2023 08:49-0400 Respiratory rate 18 /min DO Shailesh Ball Work Phone: [facility] 09-03-2023 08:49-0400 SaO2% (BldA) [Mass fraction] 97 % DO Shailesh Ball Work Phone: [facility] 09-03-2023 08:49-0400 Systolic blood pressure 110 mm[Hg] DO Shailesh Ball Work Phone: [facility] 08-27-2023 08:33-0400 Body height 170.18 cm DO Shailesh Ball Work Phone: [facility] 08-27-2023 08:33-0400 Body mass index (BMI) [Ratio] 21.7 kg/m2 DO Shailesh Ball Work Phone: [facility] 08-27-2023 08:33-0400 Body weight 62.76 kg DO Shailesh Ball Work Phone: [facility] 08-27-2023 08:33-0400 Diastolic blood pressure 65 mm[Hg] DO Shailesh Ball Work Phone: [facility] 08-27-2023 08:33-0400 Heart rate 64 /min DO Shailesh Ball Work Phone: [facility] 08-27-2023 08:33-0400 Respiratory rate 12 /min DO Shailesh Ball Work Phone: [facility] 08-27-2023 08:33-0400 Systolic blood pressure 132 mm[Hg] DO Shailesh Ball Work Phone: [facility] 08-19-2023 11:18-0400 Body height 170.18 cm DO Shailesh Ball Work Phone: [facility] 08-19-2023 11:18-0400 Body mass index (BMI) [Ratio] 21.9 kg/m2 DO Shailesh Ball Work Phone: [facility] 08-19-2023 11:180400 Body weight 63.5 kg DO Shailesh Ball Work Phone: [facility] 08-19-2023 11:18-0400 Diastolic blood pressure 56 mm[Hg] DO Shailesh Ball Work Phone: [facility] 08-19-2023 11:18-0400 Heart rate 60 /min DO Shailesh Ball Work Phone: [facility] 08-19-2023 11:18-0400 Respiratory rate 18 /min DO Shailesh Ball Work Phone: [facility] 08-19-2023 11:18-0400 SaO2% (BldA) [Mass fraction] 98 % DO Shailesh Ball Work Phone: [facility] 08-19-2023 11:18-0400 Systolic blood pressure 102 mm[Hg] DO Shailesh Ball Work Phone: [facility] 07-05-2023 10:23-0400 Body height 170.18 cm DO Shailesh Ball Work Phone: [facility] 07-05-2023 10:23-0400 Body mass index (BMI) [Ratio] 21.4 kg/m2 DO Shailesh Ball Work Phone: [facility] 07-05-2023 10:23-0400 Body temperature 97 [degF] DO Shailesh Ball Work Phone: [facility] 07-05-2023 10:23-0400 Body weight 62.14 kg DO Shailesh Ball Work Phone: [facility] 07-05-2023 10:23-0400 Diastolic blood pressure 48 mm[Hg] DO Shailesh Ball Work Phone: [facility] 07-05-2023 10:23-0400 Heart rate 60 /min DO Shailesh Ball Work Phone: [facility] 07-05-2023 10:23-0400 SaO2% (BldA) [Mass fraction] 97 % DO Shailesh Ball Work Phone: [facility] 07-05-2023 10:23-0400 Systolic blood pressure 96 mm[Hg] DO Shailesh Ball Work Phone: [facility] 06-22-2023 10:01-0400 Body height 170.18 cm DO Shailesh Ball Work Phone: [facility] 06-22-2023 10:01-0400 Body mass index (BMI) [Ratio] 21.5 kg/m2 DO Shailesh Ball Work Phone: [facility] 06-22-2023 10:01-0400 Body weight 62.36 kg DO Shailesh Ball Work Phone: [facility] 06-22-2023 10:01-0400 Diastolic blood pressure 69 mm[Hg] DO Shailesh Ball Work Phone: [facility] 06-22-2023 10:01-0400 Heart rate 64 /min DO Shailesh Ball Work Phone: [facility] 06-22-2023 10:01-0400 Respiratory rate 12 /min DO Shailesh Ball Work Phone: [facility] 06-22-2023 10:01-0400 Systolic blood pressure 95 mm[Hg] DO Shailesh Ball Work Phone: [facility] 05-04-2023 11:14-0500 Blood Pressure Location Ivelisse Lue [facility] 05-04-2023 11:14-0500 Diastolic blood pressure 46 mm[Hg] Ivelisse Lue [facility] 05-04-2023 11:14-0500 Heart rate 63 /min Ivelisse Lue [facility] 05-04-2023 11:14-0500 Systolic blood pressure 116 mm[Hg] Ivelisse Hassan [facility] 04-14-2023 10:15-0500 Body height 170.18 cm Shailesh Ball Other [facility] [employer] Other 04-14-2023 10:15-0500 Body mass index (BMI) [Ratio] 21.64 kg/m2 Shailesh Ball Other [facility] [employer] Other 04-14-2023 10:15-0500 Body weight 62.69 kg Shailesh Ball Other [facility] [employer] Other 04-14-2023 10:15-0500 Diastolic blood pressure 58 mm[Hg] Shailesh Ball Other [facility] [employer] Other 04-14-2023 10:15-0500 Respiratory rate 12 /min Shailesh Ball Other [facility] [employer] Other 04-14-2023 10:15-0500 Systolic blood pressure 118 mm[Hg] Shailesh Ball Other [facility] [employer] Other 03-29-2023 10:00-0500 Body height 170.18 cm Shailesh Ball Other [facility] 03-29-2023 10:00-0500 Body mass index (BMI) [Ratio] 21.8 kg/m2 Shailesh Ball Other [facility] [employer] Other 03-29-2023 10:00-0500 Body weight 63.14 kg Shailesh Ball Other [facility] 03-29-2023 10:00-0500 Diastolic blood pressure 74 mm[Hg] Shailesh Ball Other [facility] 03-29-2023 10:00-0500 Respiratory rate 12 /min Shailesh Ball Other [employer] Other 03-29-2023 10:00-0500 Systolic blood pressure 132 mm[Hg] Shailesh Ball Other [facility] 01-13-2023 08:49-0500 Blood Pressure Location Ivelisse Lue [facility] 01-13-2023 08:49-0500 Diastolic blood pressure 74 mm[Hg] Ivelisse Lue [facility] 01-13-2023 08:49-0500 Heart rate 68 /min Ivelisse Lue [facility] 01-13-2023 08:49-0500 Respiratory rate 16 /min Ivelisse Lue [facility] 01-13-2023 08:49-0500 Systolic blood pressure 156 mm[Hg] Ivelisse Lue [facility] 11-10-2022 10:30-0400 Body height 170.18 cm Raul Quan Other [employer] Other 11-10-2022 10:30-0400 Body mass index (BMI) [Ratio] 20.99 kg/m2 Raul Quan Other [employer] Other 11-10-2022 10:30-0400 Body temperature 97.8 [degF] Raul Quan Other [employer] Other 11-10-2022 10:30-0400 Body weight 60.78 kg Raul Quan Other [employer] Other 11-10-2022 10:30-0400 Diastolic blood pressure 64 mm[Hg] Raul Dovernakul Other [employer] Other 11-10-2022 10:30-0400 SaO2% (BldA) [Mass fraction] 98 % Raul Avelina Other [employer] Other 11-10-2022 10:30-0400 Systolic blood pressure 110 mm[Hg] Raul Avelina Other [employer] Other 10-07-2022 08:49-0400 Blood Pressure Location Ivelisse Lue [facility] 10-07-2022 08:49-0400 Diastolic blood pressure 74 mm[Hg] Ivelisse Lue [facility] 10-07-2022 08:49-0400 Heart rate 75 /min Ivelisse Lue [facility] 10-07-2022 08:49-0400 Systolic blood pressure 139 mm[Hg] Ivelisse Lue [facility] 08-04-2022 11:15-0400 Body height 170.18 cm Raul Avelina Other [employer] Other 08-04-2022 11:15-0400 Body mass index (BMI) [Ratio] 21.77 kg/m2 Raul Avelina Other [employer] Other 08-04-2022 11:15-0400 Body temperature 97.8 [degF] Raul Quan Other [employer] Other 08-04-2022 11:15-0400 Body weight 63.05 kg Raul Quan Other [facility] [employer] Other 08-04-2022 11:15-0400 Diastolic blood pressure 68 mm[Hg] Raul Osorior Other [facility] [employer] Other 08-04-2022 11:15-0400 SaO2% (BldA) [Mass fraction] 97 % Raul Quan Other [facility] [employer] Other 08-04-2022 11:15-0400 Systolic blood pressure 108 mm[Hg] Raul Lawrencerer Other [facility] [employer] Other 07-09-2022 08:00-0400 Body temperature 98.6 [degF] DO Shailesh Ball Work Phone: [facility] 07-09-2022 08:00-0400 Diastolic blood pressure 72 mm[Hg] DO Shailesh Ball Work Phone: [facility] 07-09-2022 08:00-0400 Heart rate 69 /min DO Shailesh Ball Work Phone: [facility] 07-09-2022 08:00-0400 Respiratory rate 16 /min DO Shailesh Ball Work Phone: [facility] 07-09-2022 08:00-0400 SaO2% (BldA) [Mass fraction] 97 % DO Shailesh Ball Work Phone: [facility] 07-09-2022 08:00-0400 Systolic blood pressure 154 mm[Hg] DO Shailesh Ball Work Phone: [facility] 07-09-2022 06:00-0400 Body weight 65.8 kg DO Shailesh Ball Work Phone: [facility] 07-08-2022 10:52-0400 Inhaled oxygen flow rate 8 L/min DO Shailesh Ball Work Phone: [facility] 07-08-2022 08:34-0400 Body height 167.64 cm DO Shailesh Ball Work Phone: [facility] 07-08-2022 08:34-0400 Body mass index (BMI) [Ratio] 22.7 kg/m2 DO Shailesh Ball Work Phone: [facility] 06-24-2022 09:27-0400 Blood Pressure Location Ivelisse Lue [facility] 06-24-2022 09:27-0400 Diastolic blood pressure 75 mm[Hg] Ivelisse Lue [facility] 06-24-2022 09:27-0400 Heart rate 66 /min Ivelisse Lue [facility] 06-24-2022 09:27-0400 Respiratory rate 16 /min Ivelisse Lue [facility] 06-24-2022 09:27-0400 Systolic blood pressure 120 mm[Hg] Ivelisse Lue [facility] 05-21-2022 09:30-0400 Body height 170.18 cm Shailesh Ball Other [facility] [employer] Other 05-21-2022 09:30-0400 Body mass index (BMI) [Ratio] 21.8 kg/m2 Shailesh Ball Other [facility] [employer] Other 05-21-2022 09:30-0400 Body weight 63.14 kg Shailesh Ball Other [facility] [employer] Other 05-21-2022 09:30-0400 Diastolic blood pressure 73 mm[Hg] Shailesh Ball Other [employer] Other 05-21-2022 09:30-0400 Respiratory rate 12 /min Shailesh Ball Other [employer] Other 05-21-2022 09:30-0400 Systolic blood pressure 121 mm[Hg] Shailesh Ball Other [employer] Other 05-19-2022 11:00-0400 Body height 170.18 cm Tamar Martinezmoy Other [employer] Other 05-19-2022 11:00-0400 Body mass index (BMI) [Ratio] 22.02 kg/m2 Tamar Martinezmoy Other [employer] Other 05-19-2022 11:00-0400 Body temperature 97.5 [degF] Tamar Martinezmoy Other [employer] Other 05-19-2022 11:00-0400 Body weight 63.78 kg Tamar Martinezmoy Other [employer] Other 05-19-2022 11:00-0400 Diastolic blood pressure 76 mm[Hg] Tamar Perea Other [employer] Other 05-19-2022 11:00-0400 SaO2% (BldA) [Mass fraction] 98 % Tamar Martinezmoy Other [employer] Other 05-19-2022 11:00-0400 Systolic blood pressure 148 mm[Hg] Tamar Perea Other [employer] Other 04-15-2022 08:57-0500 Blood Pressure Location Ivelisse Mo [facility] 04-15-2022 08:57-0500 Diastolic blood pressure 78 mm[Hg] Ivelisse Lue [facility] 04-15-2022 08:57-0500 Heart rate 68 /min Ivelisse Lue [facility] 04-15-2022 08:57-0500 Respiratory rate 16 /min Ivelisse Lue [facility] 04-15-2022 08:57-0500 Systolic blood pressure 122 mm[Hg] Ivelisse Lue [facility] 03-10-2022 11:30-0500 Body height 170.18 cm Raul Quan Other [employer] Other 03-10-2022 11:30-0500 Body mass index (BMI) [Ratio] 21.2 kg/m2 Raul Quan Other [employer] Other 03-10-2022 11:30-0500 Body temperature 97.8 [degF] Raul Quan Other [employer] Other 03-10-2022 11:30-0500 Body weight 61.42 kg Raul Quan Other [employer] Other 03-10-2022 11:30-0500 Diastolic blood pressure 64 mm[Hg] Raul Quan Other [employer] Other 03-10-2022 11:30-0500 SaO2% (BldA) [Mass fraction] 98 % Raul Quan Other [facility] [employer] Other 03-10-2022 11:30-0500 Systolic blood pressure 108 mm[Hg] Raul Quan Other [facility] [employer] Other 02-25-2022 11:09-0500 Blood Pressure Location ADALGISA ARASH [facility] 02-25-2022 11:09-0500 Diastolic blood pressure 63 mm[Hg] ADALGISA ARASH [facility] 02-25-2022 11:09-0500 Heart rate 64 /min ADALGISA ARASH [facility] 02-25-2022 11:09-0500 Systolic blood pressure 105 mm[Hg] ADALGISA ARASH [facility] 02-18-2022 14:12-0500 Blood Pressure Location ADALGISA ARASH [facility] 02-18-2022 14:12-0500 Diastolic blood pressure 83 mm[Hg] ADALGISA ARASH [facility] 02-18-2022 14:12-0500 Heart rate 70 /min ADALGISA ARASH [facility] 02-18-2022 14:12-0500 Systolic blood pressure 142 mm[Hg] ADALGISA ARASH [facility] 02-11-2022 08:42-0500 Blood Pressure Location Ivelisse Hassan [facility] 02-11-2022 08:42-0500 Diastolic blood pressure 73 mm[Hg] Ivelisse Lue [facility] 02-11-2022 08:42-0500 Heart rate 68 /min Ivelisse Lue [facility] 02-11-2022 08:42-0500 Respiratory rate 16 /min Ivelisse Lue [facility] 02-11-2022 08:42-0500 Systolic blood pressure 150 mm[Hg] Ivelisse Lue [facility] 02-05-2022 08:00-0500 Body temperature 99.1 [degF] DO Shailesh Ball Work Phone: [facility] 02-05-2022 08:00-0500 Diastolic blood pressure 76 mm[Hg] DO Shailesh Ball Work Phone: [facility] 02-05-2022 08:00-0500 Heart rate 78 /min DO Shailesh Ball Work Phone: [facility] 02-05-2022 08:00-0500 Respiratory rate 16 /min DO Shailesh Ball Work Phone: [facility] 02-05-2022 08:00-0500 SaO2% (BldA) [Mass fraction] 95 % DO Shailesh Ball Work Phone: [facility] 02-05-2022 08:00-0500 Systolic blood pressure 168 mm[Hg] DO Shailesh Ball Work Phone: [facility] 02-05-2022 03:21-0500 Body weight 64.1 kg DO Shailesh Ball Work Phone: [facility] 02-04-2022 11:43-0500 Inhaled oxygen flow rate 6 L/min DO Shailesh Ball Work Phone: [facility] 02-04-2022 09:31-0500 Body height 167.64 cm DO Shailesh Ball Work Phone: [facility] 02-04-2022 09:31-0500 Body mass index (BMI) [Ratio] 23.3 kg/m2 DO Shailesh Ball Work Phone: [facility] 01-20-2022 12:30-0500 Body height 170.18 cm Raul Buehrer Other [employer] Other 01-20-2022 12:30-0500 Body mass index (BMI) [Ratio] 21.92 kg/m2 Raul Buehrer Other [employer] Other 01-20-2022 12:30-0500 Body temperature 97.7 [degF] Raul Buehrer Other [employer] Other 01-20-2022 12:30-0500 Body weight 63.5 kg Raul Buehrer Other [employer] Other 01-20-2022 12:30-0500 Diastolic blood pressure 64 mm[Hg] Raul Buehrer Other [employer] Other 01-20-2022 12:30-0500 SaO2% (BldA) [Mass fraction] 99 % Raul Buehrer Other [employer] Other 01-20-2022 12:30-0500 Systolic blood pressure 116 mm[Hg] Raul Buehrer Other [employer] Other 01-05-2022 11:15-0400 Body height 170.18 cm Raul Buehrer Other [employer] Other 01-05-2022 11:15-0400 Body mass index (BMI) [Ratio] 21.92 kg/m2 Raul Lawrencerejakub Other [employer] Other 01-05-2022 11:15-0400 Body temperature 96 [degF] Raul Lawrencerer Other [employer] Other 01-05-2022 11:15-0400 Body weight 63.5 kg Raul Quan Other [employer] Other 01-05-2022 11:15-0400 Diastolic blood pressure 58 mm[Hg] Raul Lawrencerer Other [employer] Other 01-05-2022 11:15-0400 SaO2% (BldA) [Mass fraction] 99 % Raul Quan Other [employer] Other 01-05-2022 11:15-0400 Systolic blood pressure 100 mm[Hg] Raul Lawrencerer Other [employer] Other 11-24-2021 12:30-0400 Body height 170.18 cm Tamar Martinezmoy Other [employer] Other 11-24-2021 12:30-0400 Body mass index (BMI) [Ratio] 21.92 kg/m2 Tamar Martinezmoy Other [employer] Other 11-24-2021 12:30-0400 Body temperature 97.5 [degF] Tamar Brit Other [employer] Other 11-24-2021 12:30-0400 Body weight 63.5 kg Tamar Perea Other [employer] Other 11-24-2021 12:30-0400 Diastolic blood pressure 50 mm[Hg] Tamar Perea Other [facility] [employer] Other 11-24-2021 12:30-0400 SaO2% (BldA) [Mass fraction] 98 % Tamar Perea Other [facility] [employer] Other 11-24-2021 12:30-0400 Systolic blood pressure 96 mm[Hg] Tamar Perea Other [facility] [employer] Other 10-21-2021 07:30-0400 50 1 Shailesh E Ball Work Phone: [facility] [address] [place] Work Phone: Comment on above: [id number] 10-15-2021 08:27-0400 Body height 167.64 cm DO Shailesh Ball Work Phone: [facility] 10-15-2021 08:27-0400 Body temperature 97.7 [degF] DO Shailesh Ball Work Phone: [facility] 10-15-2021 08:27-0400 Body weight 66 kg DO Shailesh Ball Work Phone: [facility] 10-15-2021 08:27-0400 Diastolic blood pressure 75 mm[Hg] DO Shailesh Ball Work Phone: [facility] 10-15-2021 08:27-0400 Heart rate 73 /min DO Shailesh Ball Work Phone: [facility] 10-15-2021 08:27-0400 Respiratory rate 16 /min DO Shailesh Ball Work Phone: [facility] 10-15-2021 08:27-0400 SaO2% (BldA) [Mass fraction] 97 % DO Shailesh Ball Work Phone: [facility] 10-15-2021 08:27-0400 Systolic blood pressure 143 mm[Hg] DO Shailesh Dunham Work Phone: [facility] 09-30-2021 13:30-0400 Body height 170.18 cm Tamar Martinezmoy Other [employer] Other 09-30-2021 13:30-0400 Body mass index (BMI) [Ratio] 24.27 kg/m2 Tamar Martinezjerardoo Other [employer] Other 09-30-2021 13:30-0400 Body temperature 97.4 [degF] Tamar Brit Other [employer] Other 09-30-2021 13:30-0400 Body weight 70.31 kg Tamar Martinezmoy Other [employer] Other 09-30-2021 13:30-0400 Diastolic blood pressure 70 mm[Hg] Tamar Martinezmoy Other [employer] Other 09-30-2021 13:30-0400 SaO2% (BldA) [Mass fraction] 98 % aTmar Martinezmoy Other [employer] Other 09-30-2021 13:30-0400 Systolic blood pressure 140 mm[Hg] Tamar Perea Other [employer] Other 09-15-2021 11:00-0400 Body height 170.18 cm Tamar Martinezmoy Other [employer] Other 09-15-2021 11:00-0400 Body mass index (BMI) [Ratio] 24.27 kg/m2 Tamar Martinezjerardoo Other [employer] Other 09-15-2021 11:00-0400 Body temperature 96.4 [degF] Tamar Perea Other [employer] Other 09-15-2021 11:00-0400 Body weight 70.31 kg Tamar Perea Other [employer] Other 09-15-2021 11:00-0400 Diastolic blood pressure 72 mm[Hg] Tamar Perea Other [employer] Other 09-15-2021 11:00-0400 SaO2% (BldA) [Mass fraction] 98 % Tamar Perea Other [employer] Other 09-15-2021 11:00-0400 Systolic blood pressure 138 mm[Hg] Tamar Perea Other [employer] Other 07-28-2021 10:45-0400 Body height 170.18 cm Raul Quan Other [employer] Other 07-28-2021 10:45-0400 Body mass index (BMI) [Ratio] 24.27 kg/m2 Raul Quan Other [employer] Other 07-28-2021 10:45-0400 Body temperature 96.6 [degF] Raul Quan Other [employer] Other 07-28-2021 10:45-0400 Body weight 70.31 kg Raul Quan Other [employer] Other 07-28-2021 10:45-0400 Diastolic blood pressure 78 mm[Hg] Raul Quan Other [facility] [employer] Other 07-28-2021 10:45-0400 SaO2% (BldA) [Mass fraction] 98 % Raul Quan Other [facility] [employer] Other 07-28-2021 10:45-0400 Systolic blood pressure 190 mm[Hg] Raul Quan Other [facility] [employer] Other Encounters Encounter Date Encounter Type Care Provider Facility Start: 11-23-2023 End: 11-23-2023 ambulatory DO Shailesh Dunham Work Phone: [facility] Work Phone: Start: 11-23-2023 End: 11-23-2023 Patient encounter procedure DO Shailesh Ball Work Phone: [facility] Work Phone: Start: 11-15-2023 End: 11-15-2023 ambulatory DO Shailesh Dunham Work Phone: [facility] Work Phone: Start: 11-15-2023 End: 11-15-2023 Patient encounter procedure DO Shailesh Ball Work Phone: [facility] Work Phone: Start: 11-09-2023 Non-patient / Non-visit DO Ryder raines Ball Work Phone: [facility] Work Phone: Start: 10-27-2023 End: 10-27-2023 ambulatory AMBER BRYANT [facility] Start: 10-26-2023 Non-patient / Non-visit DO Ryder raines Ball Work Phone: [facility] Work Phone: Start: 10-21-2023 End: 10-21-2023 ambulatory DO Shailesh Ball Work Phone: [facility] Work Phone: Start: 10-21-2023 End: 10-21-2023 Patient encounter procedure DO Shailesh Ball Work Phone: [facility] Work Phone: Start: 10-18-2023 Non-patient / Non-visit DO Ryder raines Ball Work Phone: [facility] Work Phone: Start: 10-17-2023 Non-patient / Non-visit DO Ryder raines Ball Work Phone: [facility] Work Phone: Start: 10-16-2023 End: 10-17-2023 Non-patient / Non-visit DO Shailesh Ball Work Phone: [facility] Work Phone: Start: 10-16-2023 Non-patient / Non-visit DO Ryder raines Ball Work Phone: [facility] Work Phone: Start: 10-15-2023 End: 10-17-2023 Non-patient / Non-visit DO Shailesh Dunham Work Phone: [facility] Work Phone: Start: 10-14-2023 End: 10-17-2023 Non-patient / Non-visit DO Shailesh Ball Work Phone: [facility] Work Phone: Start: 10-14-2023 Non-patient / Non-visit DO Ryder raines Ball Work Phone: [facility] Work Phone: Start: 10-12-2023 End: 10-13-2023 Evaluation and management of inpatient AMBER BRYANT [facility] Start: 10-06-2023 End: 10-06-2023 ambulatory AMBER Melgoza [facility] Start: 10-06-2023 End: 10-06-2023 ambulatory AMBER J [facility] Start: 09-17-2023 ambulatory AMBER BRYANT [facility] Start: 09-03-2023 End: 09-03-2023 ambulatory DO Shailesh Ball Work Phone: [facility] Work Phone: Start: 09-03-2023 End: 09-03-2023 Patient encounter procedure DO Shailesh Ball Work Phone: [facility] Work Phone: Start: 08-31-2023 End: 08-31-2023 Patient encounter procedure DO Shailesh Ball Work Phone: [facility]-Electrodiagnostics Work Phone: Start: 08-31-2023 End: 08-31-2023 ambulatory DO Shailesh Ball Work Phone: [facility] Work Phone: Start: 08-27-2023 End: 08-27-2023 ambulatory DO Shailesh Ball Work Phone: [facility] Work Phone: Start: 08-27-2023 End: 08-27-2023 Patient encounter procedure DO Shailesh Ball Work Phone: [facility] Work Phone: Start: 08-19-2023 End: 08-19-2023 ambulatory DO Shailesh Ball Work Phone: [facility] Work Phone: Start: 08-19-2023 End: 08-19-2023 Patient encounter procedure DO Shailesh Ball Work Phone: [facility] Work Phone: Start: 08-18-2023 End: 08-18-2023 ambulatory AMBER Melgoza [facility] Start: 08-18-2023 End: 08-18-2023 ambulatory AMBER Melgoza [facility] Start: 08-17-2023 End: 08-17-2023 ambulatory MARIA EUGENIA BERRY [facility] Start: 08-13-2023 End: 08-13-2023 ambulatory MARIA EUGENIA BERRY [facility] Start: 08-04-2023 End: 08-04-2023 ambulatory MARIA EUGENIA BERRY [facility] Start: 07-27-2023 End: 07-27-2023 ambulatory CLIFTON CORREA Not Available Start: 07-05-2023 End: 07-05-2023 ambulatory DO Shailesh Ball Work Phone: [facility] Work Phone: Start: 07-05-2023 End: 07-05-2023 Patient encounter procedure DO Shailesh Ball Work Phone: [facility] Vascular Surgery Work Phone: Start: 06-22-2023 End: 06-22-2023 ambulatory DO Shailesh Ball Work Phone: [facility] Work Phone: Start: 06-22-2023 End: 06-22-2023 Patient encounter procedure DO Shailesh Ball Work Phone: [facility] Work Phone: Start: 06-16-2023 End: 06-16-2023 Patient encounter procedure DO Shailesh Ball Work Phone: [facility]-CT Scan [facility] [place] Work Phone: Start: 06-16-2023 End: 06-16-2023 ambulatory DO Shailesh Ball Work Phone: [facility] Work Phone: Start: 05-04-2023 End: 05-05-2023 ambulatory Ivelisse Hassan [place] Start: 05-04-2023 End: 05-04-2023 Lab Drop off Ivelisse Hassan [facility] Start: 05-04-2023 End: 05-04-2023 Patient encounter procedure Ivelisse Hassan [facility] Start: 04-28-2023 End: 04-29-2023 ambulatory Ivelisse Hassan Facility::[id number] Start: 04-26-2023 Non-patient / Non-visit DO Ryder raines Ball Work Phone: [facility] Work Phone: Start: 04-20-2023 Non-patient / Non-visit DO Ryder raines Ball Work Phone: [facility] Work Phone: Start: 04-20-2023 Non-patient / Non-visit DO Ryder Dunham Work Phone: [facility] Work Phone: Start: 04-14-2023 End: 04-14-2023 ambulatory Shailesh Dunham Other [employer] Other Start: 04-14-2023 Encounter for other preprocedural examination Shailesh Enrico [facility] Start: 04-14-2023 Office outpatient vi sit 15 minutes Shailesh Dunham [facility] Start: 04-08-2023 End: 04-08-2023 ambulatory Shailesh Dunham Other [employer] Other Start: 04-08-2023 Telephone encounter Shailesh AYON [facility] Start: 04-05-2023 End: 04-05-2023 ambulatory Shailesh Dunham Other [employer] Other Start: 04-05-2023 Telephone encounter Shailesh AYON [facility] Start: 04-04-2023 End: 04-04-2023 ambulatory Raul Quan Other [employer] Other Start: 04-04-2023 Telephone encounter Raul Quan [facility] Start: 03-29-2023 End: 03-29-2023 ambulatory Shailesh Dunham Other [employer] Other Start: 03-29-2023 Transitional care ellen sarkar srvc 14 day discharge Shailesh Dunham [facility] Start: 03-29-2023 End: 03-29-2023 Patient encounter procedure DO Shailesh Dunham Work Phone: [facility]- Start: 03-25-2023 End: 03-25-2023 ambulatory Raul Quan Other [employer] Other Start: 03-25-2023 Telephone encounter Raul Quan [facility] Start: 03-24-2023 End: 03-25-2023 ambulatory Ivelisse Hassan Facility:CD:[id number] Start: 01-13-2023 End: 01-14-2023 ambulatory Ivelissenaseem Hymane Facility:[facility] Start: 01-13-2023 End: 01-13-2023 Patient encounter procedure Ivelisse Hassan [facility] Start: 11-10-2022 Office outpatient vi sit 25 minutes Raul Osoriojakub [facility] Vascular Surgery Start: 11-10-2022 End: 11-10-2022 ambulatory DO Shailesh Dunham Work Phone: [employer] Other Start: 11-10-2022 End: 11-10-2022 Patient encounter procedure DO Shailesh Dunham Work Phone: [facility]-Ultrasound [facility] Start: 10-07-2022 End: 10-08-2022 ambulatory Ivelissenaseem Hymane Facility:[facility] [place] Start: 10-07-2022 End: 10-07-2022 Patient encounter procedure Ivelisse Hassan [facility] Start: 08-04-2022 End: 08-04-2022 ambulatory Raul Quan Other [employer] Other Start: 08-04-2022 Postop follow up vis it related to original px Raul Quan [facility] Start: 07-28-2022 End: 07-29-2022 ambulatory Ivelisse Hassan Facility:[facility] Start: 07-14-2022 ambulatory Ivelisse Hassan Facility: [id number] Start: 07-09-2022 End: 07-09-2022 ambulatory Shailesh Dunham Other [employer] Other Start: 07-09-2022 Telephone encounter Shailesh Dunham NANY [facility] Start: 07-08-2022 End: 07-08-2022 ambulatory Shailesh Dunham Other [employer] Other Start: 07-08-2022 Telephone encounter Shailesh Dunham NANY [facility] Start: 07-08-2022 End: 07-09-2022 Evaluation and management of inpatient DO Shailesh Dunham Work Phone: [facility] Work Phone: Start: 07-01-2022 End: 07-01-2022 ambulatory DO Shailesh Dunham Work Phone: [facility] Work Phone: Start: 07-01-2022 End: 07-01-2022 Patient encounter procedure DO Shailesh Dunham Work Phone: [facility] Sxh-Txg-[facility] Testing Work Phone: Start: 06-24-2022 End: 06-25-2022 ambulatory Ivelisse Hassan Facility:[facility] Start: 06-24-2022 End: 06-24-2022 Patient encounter procedure Ivelisse Hassan [facility] Start: 05-21-2022 End: 05-21-2022 ambulatory Shailesh Dunham Other [employer] Other Start: 05-21-2022 Patient encounter procedure Shailesh Dunham [facility] Start: 05-19-2022 End: 05-19-2022 ambulatory Tamar Martinezjerardokhalida Other [employer] Other Start: 05-19-2022 Follow-up encounter Tamar [facility] Start: 05-13-2022 End: 05-13-2022 ambulatory Raul Quan Other [employer] Other Start: 05-13-2022 Telephone encounter Raul Quan [facility] Start: 05-11-2022 End: 05-11-2022 ambulatory DO Shailesh Dunham Work Phone: [facility] Work Phone: Start: 05-11-2022 End: 05-11-2022 Patient encounter procedure DO Shailesh Dunham Work Phone: [facility]-CT Scan [facility] [place] Work Phone: Start: 04-23-2022 End: 04-23-2022 ambulatory Raul Quan Other [employer] Other Start: 04-23-2022 Telephone encounter Raul Quan [facility] Vascular Surgery Start: 04-15-2022 End: 04-15-2022 Lab Drop off Ivelisse Hassan [facility] Start: 04-15-2022 End: 02-08-2023 Patient encounter procedure Ivelisse Hassan [facility] Start: 04-14-2022 End: 04-14-2022 ambulatory Shailesh Dunham Other [employer] Other Start: 04-14-2022 Telephone encounter Shailesh Dunham [facility] Start: 03-10-2022 End: 03-10-2022 ambulatory Raul Quan Other [employer] Other Start: 03-10-2022 Office outpatient vi sit 25 minutes Raul Quan [facility] Vascular Surgery Start: 02-25-2022 End: 02-25-2022 Patient encounter procedure ADALGISASTEPHAN BUSHRY [facility] Start: 02-18-2022 End: 02-18-2022 Patient encounter procedure ADALGISA E ARASH [facility] Start: 02-11-2022 End: 02-11-2022 Lab Drop off Ivelisse Hassan [facility] Start: 02-11-2022 End: 02-11-2022 Patient encounter procedure Ivelisse Hassan [facility] Start: 02-10-2022 End: 02-11-2022 ambulatory IVELISSE HASSAN . Facility: Start: 02-07-2022 Encounter for other preprocedural examination DR RAUL QUAN [facility] Start: 02-07-2022 Encounter for preprocedural laboratory examination DR RAUL QUAN [facility] Start: 02-04-2022 End: 02-05-2022 Evaluation and management of inpatient DO Shailesh Dunham Work Phone: [facility] Start: 02-02-2022 End: 02-03-[address] RAUL QUAN Facility:[facility] Start: 02-02-2022 End: 02-03-2022 Encounter for other preprocedural examination DR RAUL QUAN Facility:[facility] Start: 01-20-2022 Office outpatient vi sit 25 minutes Raul Quan [facility] V[facility] Surgery Start: 01-20-2022 End: 01-20-2022 ambulatory DO Shailesh Dunham Work Phone: [employer] Other Start: 01-20-2022 End: 01-20-2022 Patient encounter procedure DO Shailesh Dunham Work Phone: [facility] C[facility]-Ultrasound [facility] Start: 01-05-2022 End: 01-05-2022 ambulatory Raul Quan Other [employer] Other Start: 01-05-2022 Office outpatient vi sit 25 minutes Raul Quan [facility] Vascular Surgery Start: 12-08-2021 End: 12-09-[address] SHAILESH DUNHAM Facility:[facility] Start: 12-02-2021 End: 12-02-[address] SHAILESH DUNHAM Facility:[facility] Start: 11-24-2021 End: 11-24-2021 ambulatory Tamar Perea Other [employer] Other Start: 11-24-2021 Patient encounter procedure Tamar Perea [facility] Vascular Surgery Start: 11-11-2021 End: 11-11-[address] SHAILESH DUNHAM Facility:[facility] Start: 10-26-2021 End: 10-26-[address] SHAILESH DUNHAM Facility:[facility] Start: 10-21-2021 Patient encounter procedure Shailesh Dunham Work Phone: [facility] [address] [place] Work Phone: Start: 10-16-2021 Telephone encounter Judah Vivas MD Work Phone: -[facility] 250 DO Work Phone: Start: 10-15-2021 End: 10-15-2021 Evaluation and management of inpatient DO Shailesh Dunham Work Phone: [facility]-4 [facility] Start: 10-13-2021 End: 10-13-2021 Patient encounter procedure DO Shailesh Dunham Work Phone: [facility]-Pre-Surgical Testing Start: 10-06-2021 End: 10-06-2021 Patient encounter procedure DO Shailesh Dunham Work Phone: [facility]-Pre-Surgical Testing Start: 09-30-2021 End: 09-30-2021 ambulatory Tamar Perea Other [employer] Other Start: 09-30-2021 Encounter for other preprocedural examination Tamar Perea [facility] Start: 09-30-2021 Follow-up encounter Tamar [facility] Start: 09-22-2021 End: 09-23-[address] SHAILESH DUNHAM Facility:[facility] Start: 09-18-2021 End: 09-18-2021 Patient encounter procedure DO Shailesh Dunham Work Phone: [facility]-CT Scan [facility] [place] Start: 09-15-2021 End: 09-15-2021 ambulatory Tamar Perea Other [employer] Other Start: 09-15-2021 Follow-up encounter Tamar [facility] Start: 08-27-2021 End: 08-27-2021 Patient encounter procedure DO Shailesh Dunham Work Phone: [facility]-Ultrasound [facility] Start: 08-12-2021 End: 08-13-[address] KURTZ LISTED REQUEST Facility:[facility]1 Start: 07-28-2021 End: 07-28-2021 ambulatory Raul Quan Other [employer] Other Start: 07-28-2021 Office outpatient ne w 45 minutes Raul Quan [facility] Vascular Surgery Start: 06-13-2020 End: 06-13-2020 Patient encounter procedure Lisandra Sher Work Phone: [facility] Work Phone: Patient encounter status Judah Harrington MD Work Phone: [facility] 250 DO Work Phone: Procedures Date Procedure Procedure Detail Performing Clinician Start: 11-15-2023 Doppler ultrasonography of bilateral carotid arteries DO Shailesh In[employer]ia Work Phone: Start: 06-16-2023 Computed tomography of abdomen and pelvis with contrast DO Shailesh In[employer]ia Work Phone: Start: 05-04-2023 Cystoscopic removal of ureteric stent Ivelisse Hassan Start: 04-28-2023 Cystoscopic insertion of ureteric stent Ivelisse Hassan Start: 11-10-2022 Doppler ultrasonography of bilateral carotid arteries DO Shailesh Infinia Work Phone: Start: 07-28-2022 Cystourethroscopy with dilation of urethral stricture Ivelissenaseem Hassan Start: 07-08-2022 Insertion of carotid artery stent DO Ryder raines [employer] Phone: Start: 05-11-2022 Computed tomography angiography of abdominal and/or pelvic blood vessel DO [employer] Work Phone: Start: 05-11-2022 CT angiography of head DO Shailesh [employer] Phone: Start: 05-11-2022 CT angiography of neck vessels DO Josué in [employer] Work Phone: Start: 02-10-2022 PSA screening IVELISSE HASSAN . Comment on above: Performed By: #### DATA1C #### [facility] [address] [place] [address] Dr. 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 Ivelisse Hassan Start: 02-04-2022 Endovascular repair of abdominal aortic aneurysm DO Shailesh Infinia Work Phone: Start: 01-20-2022 Doppler ultrasonography of bilateral carotid arteries DO Shailesh In[employer]ia Work Phone: Start: 09-18-2021 Computed tomography angiography of abdominal and/or pelvic blood vessel DO Shailesh In[employer]ia Work Phone: Start: 08-27-2021 US scan of aorta DO Shailesh Infinia Work Phone: Start: 08-27-2021 Doppler ultrasonography of bilateral carotid arteries DO Shailesh Infinia Work Phone: Start: 06-13-2020 Imm. administration COVID19 [employer] Work Phone: Start: 06-13-2020 SARS-CoV-2 vaccine, 0.5ml [employer] Work Phone: Start: 10-18-2019 Transurethral prostatectomy Ivelisse Lue Start: 04-06-2019 Cystoscope, device (physical object) Ivelisse Lue Start: 10-06-2016 Colonoscopy Ivelisse Lue Comment on above: 2010 Arthroscopy of knee Ivelisse Yenni e Catheterization of left heart Ivelisse Lue Esophagogastroduodenoscopy K athy Lue Plan of Treatment Date Care Activity Detail Author Start: 09-01-2023 ambulatory Ambulatory Facility:[facility] Start: 08-19-2023 [facility] Start: 07-09-2022 [facility] Start: 07-08-2022 Hospital admission [facility] Start: 07-08-2022 Patient referral to dietitian [facility] Start: 02-05-2022 [facility] Start: 02-04-2022 [facility] Start: 02-04-2022 Hospital admission [facility] Start: 10-21-2021 STRESS NUC, Provider: SAL ZUNIGA NUCLEAR 01,[id number], Status: Pen, Time: 7:30 AM STRESS NUC, Provider: SAL ARREDONDOI NUCLEAR 01,[id number], Status: Pen, Time: 7:30 AM [facility] 250 DO Work Phone: Start: 10-15-2021 [facility] Work Phone: Start: 10-15-2021 OR Percutaneous EVAR AAA (Not Applicable) OR Percutaneous EVAR AAA (Not Applicable) [facility] Start: 10-15-2021 End: 10-15-2021 Evaluation and management of inpatient AAA (abdominal aortic aneurysm) [facility]-[address] [place] [address] Surgical Start: 10-13-2021 End: 10-13-2021 Patient encounter procedure Departed Clinical [facility]-Pre-Surgical Testing Comprehensive metabo lic 2000 panel - Serum or Plasma [facility] Holter monitor study [facility] Patient Education [facility] Work Phone: Patient referral [facility] Work Phone: US Gallbladder [facility] Heart limited [facility] Heart Transthoracic [facility] Heart Transthoracic [facility] Thoracic and abdo sebastian aorta [facility] Thoracic and abdo sebastian aorta [facility] Thoracic and abdo sebastian aorta [facility] US.doppler Carotid arteries - bilateral [facility] US.doppler Carotid arteries - [facility] US.doppler Carotid arteries - [facility] Immunizations Immunization Date Immunization Notes Care Provider David holloway 06-13-2020 Rodney [employer] Rodney COVID 19 Vaccine [facility] Comment on above: Note: Patient tolera shyann well. No signs or symptoms of adverse reactions. Patient waited a minimum of 15 minutes. NEGATED: Highlighted row has not occurred!01-13-2023 influenza virus vaccine, unspecified formulation Ivelisse Hassan [facility] [place] Payers Date Payer Category Payer Self-pay [id number] 2020 Unknown [id number] 1959 Self-pay [id number] 1959 Unknown [id number] [id number] 1959 Unknown [id number] 1959 Unknown [id number] 1942 Unknown [id number] 2.16.84 0.1.970322.3.579.2.593 1942 Unknown [id number] 2.16.84 0.1.633401.3.579.2.593 1942 Unknown [id number] 2.16.84 0.1.385537.3.579.2.593 1942 Unknown [id number] 2.16.84 0.1.023570.3.579.2.593 1942 Unknown [id number] 2.16.84 0.1.006172.3.579.2.593 1942 Unknown [id number] 2.16.84 0.1.005818.3.579.2.593 1942 Unknown [id number] 2.16.84 0.1.389394.3.579.2.593 1942 Unknown [id number] 2.16.8 40.1.772589.3.579.2.727 1942 Unknown [id number] 2.16.8 40.1.045145.3.579.2.727 1942 Unknown [id number] 2.16.8 40.1.672542.3.579.2.727 1942 Unknown [id number] 2.16.8 40.1.179991.3.579.2.727 1942 Unknown [id number] 2.16.8 40.1.750909.3.579.2.727 1942 Unknown [id number] 2.16.8 40.1.328658.3.579.2.727 1942 Unknown [id number] 2.16.8 40.1.818876.3.579.2.72 1942 Unknown [id number] 2.16.8 40.1.496677.3.579.2.727 1942 Unknown [id number] 2.16.8 40.1.615599.3.579.2.727 1942 Unknown [id number] 2.16.84 0.1.407926.3.579.2.1259 Unknown Unknown [facility] [id number] Unknown [id number] 2.16.84 0.1.994703.3.579.2.593 Unknown [id number] 2.16.8 40.1.633682.3.579.2.531 Unknown [id number] 2.16.8 40.1.958579.3.579.2.531 Unknown [id number] 2.16.8 40.1.545846.3.579.2.531 Unknown [id number] 2.16.8 40.1.529835.3.579.2.531 Social History Date Type Detail Facility Tobacco smoking status Unknown i f ever smoked [facility] Work Phone: Start: 03-08-1955 End: 03-08-1996 Sex Assigned At [facility] Start: 10-15-2021 End: 08-19-2023 Tobacco smoking status NHIS Ex-smoker (finding) [facility] Start: 1940 Sex Assigned At Male F [facility] Tobacco smoking status Never [facility]u [facility] Medical Equipment Procedure Code Equipment Code Equipment Origin al Text Equipment Identifier Dates Transcarotid artery revascularization (TCAR) Bare-metal carotid artery stent ()[id number] FDA Start: 07-08-2022 Transcarotid artery revascularization (TCAR) Bare-metal carotid artery stent ()[id number] FDA Start: 07-08-2022 Percutaneous endovascular repair of abdominal aortic aneurysm (AAA) Abdominal aorta endovascular stent-graft ()[id number] FDA Start: 02-04-2022 Percutaneous endovascular repair of abdominal aortic aneurysm (AAA) Abdominal aorta endovascular stent-graft ()[id number] FDA Start: 02-04-2022 Percutaneous endovascular repair of abdominal aortic aneurysm (AAA) Abdominal aorta endovascular stent-graft ()[id number] FDA Start: 02-04-2022 Goals Date Patient Goal Desired Activity /State Functional Status Date Assessment Result Facility 05-04-2023 Functional Status N/A [facility] 01-13-2023 Functional Status N/A [facility] 10-07-2022 Functional Status N/A [facility] 07-09-2022 Functional status Patient is Pro gressing Toward Baseline [facility] Work Phone: 06-24-2022 Functional Status N/A [facility] 04-15-2022 Functional Status N/A [facility] 02-25-2022 Functional Status N/A [facility] 02-18-2022 Functional Status N/A [facility] 02-11-2022 Functional Status N/A [facility] 02-05-2022 Functional status Patient at Baseline [facility] Work Phone: 10-15-2021 Functional status Patient at Baseline [facility] Work Phone: Mental Status Date Assessment Result Facility 07-09-2022 Cognitive function Cognitive Sta tus Patient is Progressing Toward Baseline [facility] Work Phone: 02-05-2022 Cognitive function Cognitive Sta tus Patient at Baseline [facility] Work Phone: 10-15-2021 Cognitive function Cognitive Sta tus Patient at Baseline [facility] Work Phone: Clinical Notes 04-18-2020 to [...] postop with atrial fibrillation rapid response to [facility]. He spontaneously converted and anticoagulation was begun. [...] hepatic panel. I spent 20 minutes in dkon-cc-qskr evaluation, discussion, and counseling with the patient regarding the treatment plan and recommendations. Amber Bryant MD [facility] 10-13-2023 Note 10/13/23 1028 Admission Assessment Questions [...] No Pharmacy Bedside Delivery Status Not Interested ([facility] in [place]) Does the patient have a ed case manager assigned to them through their [...] to return home no needs at discharge. [facility] 10-13-2023 Note HPB Surgery Attendin g Patient [...] in approximately 2 weeks Amber Bryant MD [facility] 10-12-2023 Note Patient: Chico hidalgo Procedure Summary Date: 10/12/23 Room / Location: [facility] OPERATING ROOM 13 / [facility] Operating Room Anesthesia Start: 948 Anesthesia [...] per anesthesia protocol. No notable events documented. [facility] 10-12-2023 Note Patient: Chico hidalgo Procedure Summary Date: 10/12/23 Room / Location: [facility] OPERATING ROOM 13 / [facility] Operating Room Anesthesia Start: 948 Anesthesia [...] and follow verbal commands throughout transport process [facility] 10-12-2023 Note Arterial Line: Date/Time: 10/12/2023 [...] procedure well with no complications. Staffing Performed: resident/CALCINER OPERATOR/CAA and anesthesiologist Anesthesiologist: Kathi Lyons MD Resident/CALCINER OPERATOR: Marcial Alvarado MD Performed by: Marcial Alvarado MD Authorized by: Kathi Lyons MD [facility] 10-12-2023 Note Airway Date/Time: 10/12/2023 10:03 AM Urgency: elective Airway not difficult General Information and Staff Patient location during procedure: OR Resident/CALCINER OPERATOR/CAA: Marcial Alvarado MD Performed: resident/CALCINER OPERATOR/CAA Learner assisted: Michell Castillo MS4 Indications and [...] 21 Number of attempts at approach: 1 [facility] 10-06-2023 Note SURGERY FOLLOWUP NOT E [...] ???F), temperature so (more content not included)... 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 Additional Equipment Requests [facility] 08-18-2023 Note HEPATOBILIARY & PANC REAS [...] Smokeless tobacco: Never (more content not included)... [facility] 08-13-2023 Note The patient is a [...] fall with right femoral ORIF while playing [email or web address] Abdominal aortic stent Left carotid artery stent [...] of a gallbladder malignancy. Will send to [place] to see if the actual film from [...] bed and lymph node evaluation as well. [facility] 05-04-2023 Hospital Discharge instructions Patient Education [...] include: ?8 oz (237 mL) of milk, kqzysgi-qmbarfhknfmq-pcfbw milk, and calcium-fortifiedfruit juice. Calcium-fortified means that [...] ?Spinach (cooked), rhubarb, beets, sweet potatoes, and Estonian chard. ?Peanuts. ?Potato chips, south african fries, and baked potatoes with skin on. ?Nuts and nut products. ?Chocolate. If you regularly take a diuretic medicine, make sure to eat at least 1 or 2 servings of fruits or vegetables that are high in potassium each day. These include: ?Avocado. ?Banana. ?[place], prune, carrot, or tomato juice. ?Baked potato. [...] magnesium, fish oil, or vitamin B6. Take mykw-mfq-egpymvg and prescription medicines only as told by [...] Casseroles. Pizza. Lasagna. Frozen meals. Potato chips. Peruvian fries. The items listed above may not [...] provider. Document Revised: 06/04/2022 Document Reviewed: 06/04/2022 [employer] Patient Education 2022 [employer]. Follow Up Care 04/29/2023 08:42:17 With:Mo LEIJA, AKILAH Smith, URO Address: When:Within 4 Month(s) Comments:w/KEDAR [facility] 04-14-2023 Evaluation note Encounter Date Diagnosis Assessment [...] this time and surgery could be scheduled. [employer] Other 02-07-2024 Evaluation note* Encounter Date Diagnosis [...] control to proceed with his next procedure. [employer] Other 02-01-2024 Evaluation note* Encounter Date Diagnosis Assessment Notes Treatment Notes Treatment Clinical Notes Apr, Primary hypertension (ICD-10 - I10) [employer] Other 01-29-2024 Evaluation note* Encounter Date Diagnosis Assessment Notes Treatment Notes Treatment Clinical Notes Mar, Primary hypertension (ICD-10 - I10) [employer] Other 01-28-2024 Evaluation note* Encounter Date Diagnosis Assessment Notes Treatment Notes Treatment Clinical Notes Mar, Primary hypertension (ICD-10 - I10) [employer] Other 01-22-2024 Evaluation note* Encounter Date Diagnosis [...] has resolved INstructed on increasing fluids [employer] Other 11-08-2023 Hospital Discharge instructions Patient Education [...] urethra. Follow these instructions at home: Take efcx-hqt-ogmfgin and prescription medicines only as told by [...] provider. Document Revised: 09/10/2021 Document Reviewed: 09/10/2021 [employer] Patient Education 2022 [employer]. Follow Up Care 10/07/2022 09:26:45 With:Mo LEIJA, AKILAH Smith, URO Address: When: Unknown [facility] 09-05-2023 Evaluation note* Encounter Date Diagnosis [...] in the office with a CT scan. [employer] Other 08-02-2023 Hospital Discharge instructions Patient Education [...] urethra. Follow these instructions at home: Take dzli-dyy-oartijo and prescription medicines only as told by [...] provider. Document Revised: 09/10/2021 Document Reviewed: 09/10/2021 [employer] Patient Education 2022 [employer]. Follow Up Care 07/28/2022 10:29:31 With:Mo LEIJA, AKILAH Smith, URO Address: When:Within 3 Day(s) [facility] [employer] 05-30-2023 Evaluation note* Encounter Date Diagnosis Assessment [...] a couple of weeks. These have resolved. [employer] Other 05-04-2023 Discharge summary Author Raul Quan [facility] July 09, 2022 12:08pm Note Date/Time July 09, 2022 8:07am [facility] [address] [place], [place] [id number] Discharge Summary Signed Patient: Chico Baker MR#: [id number] : 1940 Acct:[id number] Age/Sex: 82 / M Adm Date: 3 Loc: 4C Room: 0C3077-[address]: Raul Quan MD Copies to: [...] midline, neck is supple, no JVD. Bilateral supervisor wood room strength is equal. He has a little [...] signed by MD Raul Quan> 07/09/22 1208 [facility] Work Phone: 1(692) 631-813605-03-2023 History and physical note Author Raul Quan [facility] July 08, 2022 11:06am Note Date/Time July 08, 2022 11:06a m [facility] [address] [place] [address] Vascular Surgery H&P Signed Patient: Chico Bakre MR#: [id number] : 1940 Acct:[id number] Age/Sex: 82 / M Adm Date: 3 Loc: Room: [address] [place] [address] Type: ADM IN Attending Dr: Raul Quan [...] signed by MD Raul Quan> 07/08/22 1106 [facility] Work Phone: 1(754) 184-885004-19-2023 Hospital Discharge instructions Patient Education 06/24/2022 09:42:41 [...] Follow these instructions at home: Medicines Take efaf-dhm-adaapql and prescription medicines only as told by [...] or the blood stops without treatment. Take oebe-dnn-jitaslu and prescription medicines only as told by your health care provider. Drink enough fluid to keep your urine pale yellow. This information is not intended to replace advice given to you by your health care provider. Make sure you discuss any questions you have with your health care provider. Document Revised: 10/23/2020 Document Reviewed: 10/23/2020 [employer] Patient Education 2022 [employer]art. 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 Walk daily Inspect feet daily for cuts [employer] Other 03-14-2023 Evaluation note* Encounter Date Diagnosis [...] TCAR procedure once he returns from [place] at the end of June beginning of [...] agree with plan, and denies any questions. [employer] Other 03-08-2023 Evaluation note* Encounter Date Diagnosis Assessment Notes Treatment Notes Treatment Clinical Notes May, Carotid stenosis, bilateral (ICD-10 - I65.23) CTA: < 50% right, 80% left [employer] Other 03-08-2023 Evaluation note* Encounter Date Diagnosis Assessment Notes Treatment Notes Treatment Clinical Notes May, Carotid stenosis, bilateral (ICD-10 - I65.23) CTA: < 50% right, 70% left - 05/2022 [employer] Other 02-08-2023 Hospital Discharge instructions Patient Education [...] prostate. Follow these instructions at home: Take vtxq-yze-abdwmhh and prescription medicines only as told by [...] 02/19/2001 Document Revised: 05/07/2018 Document Reviewed: 11/12/2016 [employer] Patient Education 2020 Flipkart. Follow Up Care 02/11/2022 10:55:52 With:Mo LEIJA, AKILAH Smith, URO Address: When: Unknown [facility] 02-07-2023 Evaluation note* Encounter Date Diagnosis Assessment Notes Treatment Notes Treatment Clinical Notes Apr, Primary hypertension (ICD-10 - I10) [employer] Other 01-03-2023 Evaluation note* Encounter Date Diagnosis [...] to perform simultaneously to minimize contrast exposure. [employer] Other 12-21-2022 Hospital Discharge instructions Patient Education 02/25/2022 12:02:33 Rash, Adult, Ndbf-if-Ahvu Rash, Adult A rash is a change [...] with your condition: Medicine Take or apply pavv-qjv-javbbjg and prescription medicines only as told by [...] the rash from spreading. Take or apply zfbf-pal-qjighmb and prescription medicines only as told by [...] 08/10/2008 Document Revised: 06/16/2019 Document Reviewed: 09/26/2018 [employer] Patient Education 2019 [employer] Follow Up Care 02/18/2022 14:33:21 With:Ivelisse Hassan Address:Unknown When: Unknown Comments:Appointment has already been scheduled [facility] 12-14-2022 Hospital Discharge instructions Patient Education [...] including vitamins, herbs, eye drops, creams, and csdz-nyk-emniesk medicines. Any problems you or family members [...] provider tells you to take them. Taking voxc-wcy-zoxylpb medicines, vitamins, herbs, and supplements. Eating and [...] 02/22/2006 Document Revised: 06/14/2019 Document Reviewed: 11/23/2018 [employer] Patient Education 2019 Flipkart. Follow Up Care 02/17/2022 16:33:06 With:ARASH BUCHANAN, ADALGISA Ellis, URL Address: [address] [place] [address] [phone] When:02/25/2022 [facility] 12-07-2022 Hospital Discharge instructions Patient Education [...] prostate. Follow these instructions at home: Take svlt-svq-gdikmpl and prescription medicines only as told by [...] 02/19/2001 Document Revised: 05/07/2018 Document Reviewed: 11/12/2016 [employer] Patient Education 2019 Fl[employer]kart. Follow Up Care 01/28/2021 10:15:04 With:Mo LEIJA, AKILAH Smith, URO Address: When:6 weeks [facility] 12-01-2022 Discharge summary Author Raul Quan [facility] February 05, 2022 10:08am Note Date/Time February 05, 2022 7 :52am [facility] [address] [place] [address] Discharge Summary Signed Patient: Chico Baker MR#: [id number] : 1940 Acct:[id number] Age/Sex: 81 / M Adm Date: 2 Loc: Room: [address] [place] [address]: Raul Quan MD Copies to: [...] % (Auto) 69.5, Lymph % (Auto) 14.4, Whitley % (Auto) 14.8, Eos % (Auto) 0.7, Baso % (Auto) 0.6, Nucleat RBC Rel Count 0.1, Neut # (Auto) 7.1, Lymph # (Auto) 1.5, Whitley # (Auto) 1.5 H, Eos # (Auto) 0.1, Baso # (Auto) 0.1 02/04/22 08:25: Corrected WBC 9.3, Uncorrected WBC Count 9.3, RBC 4.10, Hgb 12.4L, Hct 37.5 L, MCV 91.5, MCH 30.2, MCHC 33.0, RDW 13.7, Plt Count 198, MPV 8.5, Neut % (Auto) 70.1, Lymph % (Auto) 16.4, Whitley % (Auto) 12.0, Eos % (Auto) 0.9, Baso % (Auto) 0.6, Nucleat RBC Rel Count 0.0, Neut # (Auto) 6.5, Lymph # (Auto) 1.5, Whitley # (Auto) 1.1 H, Eos # (Auto) [...] signed by MD Raul Quan> 02/05/22 1008 [facility] Work Phone: 1(610) 920-106911-15-2022 Evaluation note* Encounter Date Diagnosis Assessment Notes [...] we will evaluate him for left TCAR. [employer] Other 10-31-2022 Evaluation note* Encounter Date Diagnosis [...] complete and CT confirms candidacy for TCAR [employer] Other 09-19-2022 Evaluation note* Encounter Date Diagnosis Assessment Notes Treatment Notes Treatment Clinical Notes Nov, AAA (abdominal aortic aneurysm) without rupture (ICD-10 - I71.4) This patient is still recovering from his recent orthopedic procedures. He continues with physical therapy and although he is getting stronger, he remains quite fatigued and weak yet. He has an upcoming appointment with his compensation/benefits specialist for preoperative risk assessment and stratification this next week. We will give him a few more weeks of physical therapy and have him back in a month or so to reschedule his AAA. He did tell me that he had some abdominal pain while in the [facility] and was taken to the [facility] where a CT of the abdomen was obtained. We will get these studies pushed over for review and comparison. He denies any abdominal pain today and tells me his appetite is pretty good. He knows to call us in the meantime with any issues. [employer] Other 07-26-2022 Evaluation note* Encounter Date Diagnosis [...] agrees with this plan, denies any questions. [employer] Other 07-11-2022 Evaluation note* Encounter Date Diagnosis [...] agrees with this plan, and denies questions. [employer] Other 07-11-2022 Evaluation note* Encounter Date Diagnosis [...] agrees with this plan, and denies questions. [employer] Other 05-23-2022 Evaluation note* Encounter Date Diagnosis [...] returns we will get baseline ankle-brachial indices. [employer] Other 10-06-2021 NoteHNO ID: [id number] Author: Power Catherine MD Service: ? Author Type: Physician Type: Progress Notes Filed: 12/11/2020 11:17 AM Note Text: [facility] OUTPATIENT VISIT DATE December 11, 2020 OUTPATIENT VISIT TYPE EST PRIMARY CARE PHYSICIAN: Shailesh Dunham (Jere) [address] [place] [address] REFERRING PHYSICIAN Power Catherine [address] [facility] [address] CHIEF COMPLAINT: Patient presents with: Established Patient [...] up. Continue statin therapy. ? Power Catherine, [facility]02-11-2021 NotePatient Outreach (COVAMN) CHICO BAKER Abad ([id number]) 1940 Date Time Provider Department 04/18/20 KIMBERLEY REHMAN During your visit today, we recorded the following information about you: Allergies As of Date: 04/18/2020 Noted Allergy Reaction SHALINI INHIBITORS 05/09/2015 16 - Unknown GADOLINIUM-CONTAINING CONTRAST ME*05/09/2015 16 - Unknown TETANUS VACCINES AND TOXOID 05/16/2015 16 - Unknown Date Reviewed: 10/18/2017 Reviewed by: Power Catherine - Fully Assessed Order(s):SARS-COVID VACCINE 1ST DOSE APPT [[id number]] Order #: [id number] FUTURE Prescriptions as of 04/18/2020 Sig: ASPIRIN 81 MG TABLET,DELAYED * Take 81 mg by mouth once justice* ISOSORBIDE MONONITRATE ER 30 * Take 30 mg by mouth once justice* CARVEDILOL 12.5 MG TABLET Take 12.5 mg by mouth twice d* DOXAZOSIN 4 MG TABLET Take 4 mg by mouth daily at b* Problem List As Of Date: 04/18/2020 (None) Encounter Status:Closed by Kuona, Secret RecipeUSER on 04/22/20[facility] Evaluation + Plan note Future Appointments Appointment Date:04/15/2022 08:45:00 AM Scheduled Provider:Ivelisse Hassan MD Location:[facility] Appointment Type:URO Office Visit [facility] evaluation + Plan note Future Appointments Appointment Date:04/15/2022 08:45:00 AM Scheduled Provider:Ivelisse Hassan MD Location:[facility] Appointment Type:URO Office Visit Diagnostic Tests Pending * Urine [facility] Future App[facility]ments Appointment Date:02/25/2022 11:00:00 AM Scheduled Provider:ADALGISA ANTOINE PA-C Location:[facility] Appointment Type:URO Office Visit Appointment Date:04/15/2022 08:45:00 AM Scheduled Provider:Ivelisse Hassan MD Location:[facility] Appointment Type:URO Office Visit [facility] evaluation + Plan note Future Appointments Appointment Date:06/24/2022 09:30:00 AM Scheduled Provider:Ivelisse Hassan MD Location:[facility] Appointment Type:URO Office Visit [facility] evaluation + Plan note Future Appointments Appointment Date:01/13/2023 09:00:00 AM Scheduled Provider:Ivelisse Hassan MD Location:[facility] Appointment Type:URO Office Visit [facility] evaluation + Plan note Future Appointments Appointment Date:09/01/2023 11:00:00 AM Scheduled Provider:Ivelisse Hassan MD Location:[facility] Appointment Type:URO Office Visit [facility] evaluation + Plan note Future Appointments Appointment Date:09/01/2023 11:00:00 AM Scheduled Provider:Ivelisse Hassan MD Location:[facility] Appointment Type:URO Office Visit Diagnostic Tests Pending * Calculi Analysis Urinary [facility]04[facility] Diagnosis Onset Date Resolution Status AAA (abdominal aortic aneurysm) acute [facility] Work Phone: evaluation noteNo assessment information available [facility] Work Phone: evaluation noteNo InformationNocitizens memorial healthcare [employer] Other evaluation note* Diagnosis Onset Date Resolution Status Left carotid stenosis acute [facility] Work Phone: Evaluation note* Diagnosis Onset Date Resolution Status Hypercholesterolemia acute IFG (impaired fasting glucose) acute Kidney stones acute Nonrheumatic aortic (valve) stenosis acute Peripheral artery disease ac [facility] Primary hypertension acute [facility] Work Phone: evaluation note* Diagnosis Onset Date Resolution Status Gallbladder polyp acute Hypercholesterolemia acute IFG (impaired fasting glucose) acute Nonrheumatic aortic (valve) stenosis acute Paget's disease of bony pelvis acute Peripheral artery disease ac [facility] Primary hypertension acute [facility] Work Phone: Evaluation note* Diagnosis Onset Date Resolution Status Gallbladder polyp acute Hypercholesterolemia acute IFG (impaired fasting glucose) acute Nonrheumatic aortic (valve) stenosis acute Paget's disease of bony pelvis acute Peripheral artery disease ac [facility] Primary hypertension acute AAA (abdominal aortic aneurysm) without rupture acute [facility] Work Phone: Evaluation note* Diagnosis Onset Date Resolution Status Gallbladder polyp acute Hypercholesterolemia acute IFG (impaired fasting glucose) acute Nonrheumatic aortic (valve) stenosis acute Paget's disease of bony pelvis acute Peripheral artery disease [facility] Primary hypertension acute AAA (abdominal aortic aneurysm) without rupture acute AAA (abdominal aortic aneurysm) without rupture acute Benign prostatic hyperplasia with lower urinary tract symptoms acute Gallbladder polyp acute Hypercholesterolemia acute Mass of gallbladder acute Nonrheumatic aortic (valve) stenosis acute Paget's disease of bony pelvis acute Peripheral artery disease ac [facility] Primary hypertension acute [facility] Work Phone: Evaluation note* Diagnosis Onset Date Resolution Status Hypercholesterolemia acute IFG (impaired fasting glucose) acute Nonrheumatic aortic (valve) stenosis acute Paget's disease of bony pelvis acute Peripheral artery disease ac [facility] Primary hypertension acute AAA (abdominal aortic aneurysm) without rupture acute AAA (abdominal aortic aneurysm) without rupture acute Benign prostatic hyperplasia with lower urinary tract symptoms acute Hypercholesterolemia acute Mass of gallbladder acute Nonrheumatic aortic (valve) stenosis acute Paget's disease of bony pelvis acute Peripheral artery disease ac [facility] Primary hypertension acute AAA (abdominal aortic aneurysm) without rupture acute Hypercholesterolemia acute IFG (impaired fasting glucose) acute Mass of gallbladder acute Nonrheumatic aortic (valve) stenosis acute Peripheral artery disease ac [facility] Primary hypertension acute Preop exam for internal medicine noneactive [facility] Work Phone: Evaluation note* Diagnosis Onset Date Resolution Status Hypercholesterolemia acute IFG (impaired fasting glucose) acute Nonrheumatic aortic (valve) stenosis acute Paget's disease of bony pelvis acute Peripheral artery disease ac [facility] Primary hypertension acute AAA (abdominal aortic aneurysm) without rupture acute AAA (abdominal aortic aneurysm) without rupture acute Benign prostatic hyperplasia with lower urinary tract symptoms acute Hypercholesterolemia acute Mass of gallbladder acute Nonrheumatic aortic (valve) stenosis acute Paget's disease of bony pelvis acute Peripheral artery disease [facility] Primary hypertension acute AAA (abdominal aortic aneurysm) without rupture acute Hypercholesterolemia acute IFG (impaired fasting glucose) acute Mass of gallbladder acute Nonrheumatic aortic (valve) stenosis acute Peripheral artery disease [facility] Primary hypertension acute Preop exam for internal medicine noneactive AAA (abdominal aortic aneurysm) without rupture acute Benign prostatic hyperplasia with lower urinary tract symptoms acute Hypercholesterolemia acute Mass of gallbladder acute Nonrheumatic aortic (valve) stenosis acute Paget's disease of bony pelvis acute Peripheral artery disease [facility] Primary hypertension acute [facility] Work Phone: Evaluation note* Diagnosis Onset Date Resolution Status AAA (abdominal aortic aneurysm) without rupture acute Benign prostatic hyperplasia with lower urinary tract symptoms acute Hypercholesterolemia acute Mass of gallbladder acute Nonrheumatic aortic (valve) stenosis acute Paget's disease of bony pelvis acute Peripheral artery disease [facility] Primary hypertension acute AAA (abdominal aortic aneurysm) without rupture acute Hypercholesterolemia acute IFG (impaired fasting glucose) acute Mass of gallbladder acute Nonrheumatic aortic (valve) stenosis acute Peripheral artery disease [facility] Primary [facility] acute Preop exam for internal medicine noneactive AAA (abdominal aortic aneurysm) without rupture acute Benign prostatic hyperplasia with lower urinary tract symptoms acute Hypercholesterolemia acute Mass of gallbladder acute Nonrheumatic aortic (valve) stenosis acute Paget's disease of bony pelvis acute Peripheral artery disease [facility] Primary hypertension acute Acute on chronic heart failu re with preserved ejection fraction (HFpEF) acute Atrial fibrillation acute Hypercholesterolemia acute IFG (impaired fasting glucose) acute Nonrheumatic aortic (valve) stenosis acute NSTEMI (non-ST elevated myocardial infarction) acute Primary hypertension acute [facility] Work Phone: Evaluation note* Diagnosis Onset Date Resolution Status AAA (abdominal aortic aneurysm) without rupture acute Benign prostatic hyperplasia with lower urinary tract symptoms acute Hypercholesterolemia acute Mass of gallbladder acute Nonrheumatic aortic (valve) stenosis acute Paget's disease of bony pelvis acute Peripheral artery disease [facility] Primary hypertension acute AAA (abdominal aortic aneurysm) without rupture acute Hypercholesterolemia acute IFG (impaired fasting glucose) acute Mass of gallbladder acute Nonrheumatic aortic (valve) stenosis acute Peripheral artery disease [facility] Primary hypertension acute Preop exam for internal medicine noneactive AAA (abdominal aortic aneurysm) without rupture acute Benign prostatic hyperplasia with lower urinary tract symptoms acute Hypercholesterolemia acute Mass of gallbladder acute Nonrheumatic aortic (valve) stenosis acute Paget's disease of bony pelvis acute Peripheral artery disease [facility] Primary hypertension acute Acute on chronic heart failu re with preserved ejection fraction (HFpEF) acute Atrial fibrillation acute Hypercholesterolemia acute IFG (impaired fasting glucose) acute Nonrheumatic aortic (valve) stenosis acute NSTEMI (non-ST elevated myocardial infarction) acute Primary hypertension acute AAA (abdominal aortic aneurysm) without rupture acute Carotid stenosis, bilateral acute Former smoker acute [facility] Work Phone: Evaluation note* Diagnosis Onset Date Resolution Status AAA (abdominal aortic aneurysm) without rupture acute Hypercholesterolemia acute IFG (impaired fasting glucose) acute Mass of gallbladder acute Nonrheumatic aortic (valve) stenosis acute Peripheral artery disease [facility] Primary hypertension acute Preop exam for internal medicine noneactive AAA (abdominal aortic aneurysm) without rupture acute Benign prostatic hyperplasia with lower urinary tract symptoms acute Hypercholesterolemia acute Mass of gallbladder acute Nonrheumatic aortic (valve) stenosis acute Paget's disease of bony pelvis acute Peripheral artery disease [facility] Primary hypertension acute Acute on chronic heart [...] elevated myocardial infarction) acute Primary hypertension acute [facility] Work Phone: History general Narrative - Reported* Type Description Date Medical History hypercholesterolemia Medical History abdominal aortic aneurysm Medical History Carotid stenosis Medical History PAD Surgical History TURP Surgical History knee arthroscopy LEFT Surgical History Vein stripping Hospitalization History See Above AddIn Social Other Hisvwoy general Narrative - Reported* Type Description Date Medical History hypercholesterolemia Medical History abdominal aortic aneurysm Medical History Carotid stenosis Medical History PAD Surgical History TURP Surgical History knee arthroscopy LEFT Surgical History Vein stripping Surgical History RT FEMUR FX WITH ARABELLA PLACEMENT Hospitalization History See Above AddIn Social Other History general Narrative - Reported* Type Description Date Medical History hypercholesterolemia Medical History abdominal aortic aneurysm Medical History Carotid stenosis Medical History PAD Medical History [ ] Surgical History TURP Surgical History knee arthroscopy LEFT Surgical History Vein stripping Surgical History RT FEMUR FX WITH ARABELLA PLACEMENT Surgical History EVAR 02/04/2022 Surgical History [ ] Hospitalization History See Above AddIn Social Other History general Narrative - Reported* Type [...] History COLONOSCOPY 2019 Hospitalization History See Above AddIn Social Other History general Narrative - Reported* Type [...] Left TCAR 07/2022 Hospitalization History See Above AddIn Social Other History general Narrative - Reported* Type [...] Left TCAR 07/2022 Hospitalization History See Above AddIn Social Other Hisfmzi general Narrative - Reported* Type Description Date [...] left ESWL 03/2023 Hospitalization History See Above AddIn Social Other Hospital course Narrative No data available for this section [facility] Discharge instructions No data available for this section [facility] Author Raul Quan [facility] October 15, 2021 4:31pm Note Date/Time October 15, 2021 4: 31pm [facility] ENTER [address] [place] [address] Vascular Surgery Progress Note Signed Patient: Chico Baker MR#: [id number] : 1940 Acct:[id number] Age/Sex: 81 / M Adm Date: 2 Loc: 4N Room: 0W9301-9 Type: DIS IN Attending Dr: Raul Quan [...] proceed with evaluation here. I will contact [facility] to performoutpatient cardiac evaluation and then he will be rescheduled when he is cleared. Code(s): I71.4 - Abdominal aortic aneurysm, without rupture Status: Acute Documented By: Raul Quan MD 10/15/21 162 9 Signed By: <Electronically signed by MD Raul Quan> 10/15/21 1631 [facility] Work Phone: Progress note Author Pb Zurita [facility] October 16, 2021 5:41am Note Date/Time October 16, 2021 5: 41am [facility] ENTER [address] [place] [address] Anesthesia Progress Note Signed Patient: Chico Baker MR#: [id number] : 1940 Acct:[id number] Age/Sex: 81 / M Adm Date: 2 Loc: Room: [address] [place] [address] Type: DIS IN Attending Dr: Raul Quan MD Copies to: ~ Anesthesia Progress Note Narrative Narrative: Patient for EVAR today for 5+ centimeter infrarenal AAA. Past medical history hypertension, moderate aortic stenosis, and coronary artery disease. Review of medical records and discussion with indicates patient had stress test 2009 positive for infarct and ischemia at which time he was referred to [facility] and had cardiac cath. Medical management was apparently chosen. No interval events,testing, or intervention. Patient has been asymptomatic but sedentary and poor historian. Advised patient and family to see compensation/benefits specialist for consideration of preop stress testing. Discussed with surgeon Documented By: Pb Zurita MD 10/16/21 0535 Signed By: <Electronically signed by Pb Zurita MD> 10/16/21 0541 [facility] Work Phone: Progress note No data available for this section [facility] Reason for Referral No Reason for [...] Documentation i71.4 BP check S/P EVAR; [facility] Reason for Visit Gallbladder polyp Hypercholesterolemia IFG [...] Complaint i71.4 BP check S/P EVAR; [facility] Nonrheumatic aortic stenosis Reason for Visit Gallbladder [...] Complaint i71.4 BP check S/P EVAR; [facility] Nonrheumatic aortic stenosis sugical clearance, gall bladder [...] Complaint i71.4 BP check S/P EVAR; [facility] Nonrheumatic aortic stenosis sugical clearance, gall bladder [...] Complaint i71.4 BP check S/P EVAR; [facility] Nonrheumatic aortic stenosis sugical clearance, gall bladder [...] section and content) DATE CREATED AUTHOR 04/02/2021 [facility] DATE CREATED AUTHOR AUTHOR'S ORGANIZ ATION 10/28/2021 [facility] DATE CREATED AUTHOR AUTHOR'S ORGANIZ ATION 04/14/2022 [facility] DATE CREATED AUTHOR AUTHOR'S ORGANIZ ATION 05/13/2023 [facility] DATE CREATED AUTHOR AUTHOR'S ORGANIZ ATION 07/29/2023 [facility] EPIC DATE CREATED AUTHOR AUTHOR'S ORGANIZ ATION 10/29/2023 [facility] DATE CREATED AUTHOR AUTHOR'S ORGANIZ ATION 11/16/2023 [facility] REASON FOR VISIT (unrecogniz ed section and content) REF BY DR DUNHAM FOR AAA, PAD AND CAROTID STENOSIS, Needs a new vascular surgeon7 WK FOLLOW UP; SHYANNE'S, ABDOMINAL, CAROTID WK FOLLOW UP; SHYANNE'S, ABDOMINAL, CAROTID 08/27/21FOLLOW UP AFTER [facility] 09/18/21-AAAAAA see pt post femur fx rt and clavicle rt6 WK FOLLOW UP, Follow-up abdominal aortic aneurysmVASC 3 MONTH FOLLOW UP; CAROTID DUPLEX 11A, Abdominal aortic aneurysm3 week f/u EVAR, Follow-up after percutaneous aneurysm repairNo InformationNo InformationNo InformationNo InformationNo Information2 MONTH FOLLOW UP; [facility]/ Follow UpNo InformationNo InformationNo Information3 [...] Member Role Status Dates Sheri Christiansen MD Technology 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 [facility] [employer] [facility]. provides no warranty or guarantee of the accuracy or completeness of information in this document.
[2023-12-17 11:30] LABS: Basophils Absolute Auto 0.1 10^3/uL (0.0-0.1); Basophils Percent Auto 0.7 % (0.2-2.0); Eosinophils Absolute Auto 0.2 10^3/uL (0.0-0.7); Eosinophils Percent Auto 1.4 % (0.9-7.0); Hemoglobin 12.7 g/dL (14.0-18.0); Immature Granulocytes Abs Auto 0.03 10^3/uL (0.00-0.03); Immature Granulocytes Pct Auto 0.3 % (0.0-0.5); Lymphocytes Absolute Auto 1.7 10^3/uL (1.2-3.8); Lymphocytes Percent Auto 15.7 % (20.5-60.0); Mean Corpuscular HGB Conc 32.6 g/dL (29.9-35.2); Mean Corpuscular Hemoglobin 30.4 pg (25.9-34.0); Mean Corpuscular Volume 93.3 fL (80.0-94.0); Mean Platelet Volume 9.4 fL (9.5-13.5); Monocytes Percent Auto 9.7 % (1.7-12.0); Neutrophils Absolute Auto 7.7 10^3/uL (1.4-6.5); Neutrophils Percent Auto 72.2 % (43.0-75.0); Platelet Count 190 10^3/uL (150-450); Red Blood Count 4.18 10^6/uL (4.70-6.10); Red Cell Distribution Width 12.3 % (11.0-15.0); White Blood Count 10.7 10^3/uL (4.0-11.0)
[2023-12-17 11:38] LABS: C Reactive Protein 0.59 mg/dL (<=0.50)
[2023-12-17 14:56] LABS: C. Difficile PCR POSITIVE (NEGATIVE)
== END 2023-12-17 11:17 | disposition home or self-care (01) ==
LOC: LAB 11:16
PROVIDERS: PCP Internal Medicine; Visit Provider Internal Medicine
DX: R19.7 Diarrhea, unspecified (principal)
CPT/HCPCS: 36415; 85025; 86140; 87045; 87046; 87427; 87493

== ENCOUNTER 2024-01-19 10:03 | Outpatient (OUT) | payer MEDICARE, OTHER, SELFPAY ==
[2024-01-19 10:57] LABS: Alanine Aminotransferase 12 U/L (16-63); Albumin Globulin Ratio 0.8; Albumin Level 3.4 g/dL (3.4-5.0); Alkaline Phosphatase 121 U/L (46-116); Aspartate Amino Transferase 13 U/L (15-37); Bilirubin Direct 0.2 mg/dL (0.0-0.2); Bilirubin Total 0.7 mg/dL (0.2-1.0); Globulin 4.4 g/dL; Total Protein 7.8 g/dL (6.4-8.2)
== END 2024-01-19 10:04 | disposition home or self-care (01) ==
PROVIDERS: PCP Internal Medicine
DX: K81.1 Chronic cholecystitis (principal)
CPT/HCPCS: 36415; 80076

== ENCOUNTER 2024-01-28 07:29 | Outpatient (OUT) | payer MEDICARE, OTHER, SELFPAY ==
--- NOTE | 2024-01-28 07:00 | NM_ITS ---
Patient Name: CHICO BAKER MR#: [id number] : 1940 Exam Date: 01/28/2024 Ordering Doctor: Jez Martin RADIOLOGY REPORT PROCEDURE: NM SOPHY PERF SPECT REST STR COMPARISON: None. INDICATIONS: VENTRICULAR TACHYCARDIA, DYSPNEA ON EXERTION TECHNIQUE: Exam Description: Stress/Rest one day protocol gated SPECT Rest Imagin.2 mCi Tc-99m Cardiolite IV on 01/28/2024 Stress Imaging 30.8 mCi Tc-99m Cardiolite IV on 01/28/2024 Exercise Protocol: 0.4 mg Lexiscan given IV Heart Rate (bpm): Rest: 65 Max: 81 PMHR: 58 Blood Pressure: Rest: 160/72 Max: 160/72 Symptoms: Rest and peak stress ECG findings were pending and the exercise portion of the study was pending per attending physician Dr. CALLOWAY . For more details please see separate cardiac stress test report. FINDINGS: QUALITY OF STUDY: Excellent. PERFUSION DEFECT: LOCATION: Mid-inferior. Apical inferior. [place]. SIZE: Medium (3-4 segments). SEVERITY: Severe. TYPE: Persistent. WALL MOTION: Mild hypokinesis: Basal inferior. Mid-inferior. Apical inferior. LV SIZE: Normal. 97 mL. TID / TCD: None; 1.0 LVEF: Abnormal. Calculated EF 51%. SUMMARY: Myocardial perfusion imaging study has ABNORMAL findings. CONCLUSION: 1. No acute or reversible ischemia. 2. Fixed absent perfusion of the apex and inferior apically wall. Moderately decreased perfusion/radiotracer within mid and basal inferior wall. 3. Slightly low ejection fraction, 51%. Normal left ventricle volume. Dictated by: Darren Page M.D. on 01/28/2024 at 15:23 Approved by: Darren Page M.D. on 01/28/2024 at 15:28
--- NOTE | 2024-01-28 07:29 | PCN_ITS ---
CARDIAC STRESS TEST ? Requesting Physician:? Jez Martin M.D.? Procedure Date:? 01/28/2024 ? PERFORMING PROVIDER:? Angel Mejia M.D. ? INDICATIONS:? Shortness of breath, V-tach. ? STRESS TEST TYPE:? Lexiscan stress test. ? Resting heart rate:? 65 Max heart rate:? 81 Resting blood pressure:? 160/72 Max blood pressure:? 160/72 Resting EKG:? Sinus rhythm with marked sinus arrhythmia, cannot rule out anterior infarct, age indeterminate, Q-wave abnormality, possible inferior ischemia. ST changes:? No ST changes meeting the criteria for ischemia. Symptoms:? Nothing significant. Arrhythmias:? PACs. ? CONCLUSIONS: 1.? Resting EKG is abnormal with sinus rhythm with marked arrhythmias, cannot rule out anterior infarct, age indeterminate, Q-wave abnormality, possible inferior ischemia. 2.? There were no significant ST changes meeting the criteria for ischemia post Lexiscan infusion.3.? Please refer to separately interpreted and reported nuclear myocardial perfusion imaging. MTDD
--- OUTSIDE RECORDS SUMMARY | 2024-01-28 07:34 | XMS_ITS | CCD ---
Author Organization [facility] Care Team Providers Care Differential Tester Name Role Phone Orlando Dtoson Unavailable Raul Quan Unavailable Tamar Perea Unavailable Shailesh Dunham Unavailable DO Shailesh Dunham Primary Care Provider MD Raul Quan Attending Provider KB Perea Attending Provider MD Raul Quan Admit Provider [phone] DO Shailesh Dunham Primary Care Provider KB Perea Attending Provider MD Raul Quan Admit Provider MD Raul Quan Attending Provider [phone] SHAILESH DUNHAM Primary Care Physician IVELISSE FRANCIS Admitting Unavailable MO .IVELISSE Attending Unavailable ENRICO, DR MEADE Primary Care Unavailable IVELISSE FRANCIS Consulting Unavailable ENRICO, DR MEADE Admitting Unavailable ENRICO, DR MEADE Attending Unavailable ENRICO, DR MEADE Referring Unavailable BALL, DR MEADE Primary Care Unavailable ENRICO, DR MEADE Consulting Unavailable ENRICO, DR MEADE Admitting Unavailable BALL, DR MEADE Attending Unavailable BALL, DR MEADE Primary Care Unavailable BALL, DR MEADE Consulting Unavailable ENRICO, DR MEADE Admitting Unavailable BALL, DR MEADE Attending Unavailable ENRICO, DR MEADE Primary Care Unavailable ENRICO, DR MEADE Consulting Unavailable WEST, DR ROCIO Dean Consulting Unavailable AVELINA, DR BILLS Admitting Unavailable TOMMYEHMAGNOLIA, DR BILLS Attending Unavailable ENRICO, DR MEADE [...] Consulting Unavailable STRAWSER, NICOLE Consulting Unavailable REQUEST, DR NONE LISTED Admitting Unavaila ble REQUEST, NONE LISTED Attending Unavaila ble ENRICO, DR MEADE Primary Care Unavailable REQUEST, NONE LISTED Consulting Unavaila Shailesh Parham Unavailable DO Shailesh Dunham Primary Care Provider MD Raul Quan Attending Provider DO Shailesh Dunham Primary Care Provider [phone] MD Raul Quan Attending Provider MD Raul Quan Admit Provider [phone] DO Shailesh Dunham Primary Care Provider MD Raul Quan Attending Provider [phone] Lue, Ivelisse MSilvestre Attending Unavailable Lue, Ivelisse M. Attending Unavailable Lue, Ivelisse M. Attending Unavailable Lue, Ivelisse M. Attending Unavailable Lue, Ivelisse M. Attending Unavailable Lue, Ivelisse M. Attending Unavailable Lue, Ivelisse M. Attending Unavailable Lue, Ivelisse M. Admitting Unavailable Lue, Ivelisse M. Attending Unavailable Lue, Ivelisse M. Referring Unavailable Lue, Ivelisse M. Attending Unavailable Lue, Ivelisse M. Attending Unavailable DO Shailesh Dunham Primary Care Provider [phone] MD Raul Quan Attending Provider CLIFTON CORREA Attending Unavailable SHAILESH DUNHAM Referring Unavailable MD Sheri Christiansen Attending Provider DO Shailesh Dunham Primary Care Provider [phone] MD Raul Quan Attending Provider DO Shailesh Dunham Primary Care Provider MD Sheri Christiansen Attending Provider DO Shailesh Dunham Primary Care Provider DO Shailesh Dunham Primary Care Provider [phone] MD Raul Quan Attending Provider [phone] Shailesh Dunham Primary Care Unavailable Avelina, Raul Admitting Unavailable Raul Quan Attending Unavailable Melindarejakub, Raul Admitting Unavailable MelindareRaul phelps Attending Unavailable Enrico, Shailesh Primary Care Unavailable Enrico, Shailesh Primary Care Unavailable Tommyehrejakub, Raul Admitting Unavailable Raul Quan Attending Unavailable Shailesh Dunham Primary Care Unavailable Sheri Christiansen Admitting Unavailable Sheri Christiansen Attending Unavailable Shailesh Dunham Primary Care Unavailable Елена, Sheri Admitting Unavailable Sheri Christiansen Attending Unavailable AMBER BRYANT Attending Unavailable AMBER BRYANT Referring Unavailable MARIA EUGENIA BERRY Referring Unavailable AMBER BRYANT Referring Unavailable MARIA EUGENIA BERRY Referring Unavailable AMBER BRYANT Attending Unavailable AMBER BRYANT Attending Unavailable MARIA EUGENIA BERRY Attending Unavailable AMBER BRYANT Attending Unavailable AMBER BRYANT Referring Unavailable CLIFTON CERDA Attending Unavailable AMBER BRYANT Admitting Unavailable AMBER BRYANT Attending Unavailable Allergies Allergy Classification Reported Allergen(s) Allergy Type Date of Onset Reaction(s) Facility Angiotensin Converting Enzyme (SHALINI) Inhibitors (2 sources) Angiotensin Converting Enzyme (Shalini) Inhibitors Drug Allergy 08-27-19 24 [facility] Tetanus immune globulin (2 sources) Tetanus immune globulin Drug Allergy 08-27-19 24 Unknown Reaction [facility] (5 sources) Angiotensin Converting Enzyme (Shalini) Inhibitors Drug allergy Unknown [facility] Other (6 sources) Tetanus vaccine; Translations: [tetanus toxoid] Drug allergy Unknown [facility] Repository (20 sources) Angiotensin Converting Enzyme (Shalini) Inhibitors; Translations: [Angiotensin-conv erting enzyme inhibitor agent (substance)] Allergy to substance 05-09-19 16 [facility] (8 sources) Contrast media Allergy to substance 10-07-19 22 [facility] (20 sources) Tetanus immune globulin; Translations: [tetanus immune globulin] Drug Allergy 02-24-20 19 Unknown Reaction [facility] (20 sources) Angiotensin-conve rting enzyme inhibitor agent Drug allergy Unknown [facility] Other (2 sources) Tetanus toxoid specific immunoglobulin E Drug allergy Unknown [facility] Other (12 sources) Contrast media; Translations: [Contrast Dye] Allergy to substance unknown [facility] (13 sources) Iodine; Translations: [iodine] Drug Allergy 10-27-19 Unknown (qualifier value) [facility] (11 sources) tetanus toxoid vaccine, inactivated; Translations: [tetanus toxoid] Drug Allergy Unknown (qualifier value) [facility] (1 source) Iodine Drug Allergy [facility] Repository (1 source) Iodine (And Iodine Containting Drugs) Drug allergy (disorder) [facility] (1 source) Tetanus AND Diphtheria Tox,Adult Drug allergy (disorder) [facility] (20 sources) Tetanus vaccine Drug allergy Unknown [facility] Other (20 sources) Iodinated Contrast Media; Translations: [Iodinated Contrast Media] Allergy to substance 10-27-19 Hives [facility] (16 sources) tetanus toxoid, adsorbed; Translations: [tetanus toxoid, adsorbed] Allergy to substance 04-26-19 Unknown Reaction [facility] (1 source) GADOLINIUM-CONTAI MAYA CONTRAST MEDIA; Translations: [GADOLINIUM-CONTA INING CONTRAST MEDIA] Propensity to adverse reactions to drug (disorder) 05-09-19 16 [facility] Repository (1 source) TETANUS AND DIPHTHERIA TOXOIDS; Translations: [TETANUS AND DIPHTHERIA TOXOIDS] Propensity to adverse reactions to drug (disorder) 10-27-19 [facility] Rep[facility] (1 source) TETANUS VACCINES AND TOXOID; Translations: [TETANUS VACCINES AND TOXOID] Propensity to adverse reactions to drug (disorder) 05-16-19 16 [facility] Repository (1 source) ALLERGIES NOT ON FILE; Translations: [ALLERGIES NOT ON FILE] Propensity to adverse reactions (disorder) [facility] Repository Medications Current Medications Medication Drug Class(es) Dates Sig (Normalized) Sig (Original) apixaban 2.5 mg oral tablet (7 sources) Factor Xa Inhibitor Start: 10-19-2023 take 1 tablet by mouth twice daily Apixaban (Eliquis) 2.5 mg tablet Active 2.5 MG PO Twice daily October 18, 2023 11:00pm carvedilol 25 mg oral tablet (20 sources) alpha-Adrenergic Patel, beta-Adrenergic Patel Start: 10-24-2023 take 1 tablet by mouth twice daily Carvedilol Active 0 .ROUTE .COMPLEX 180 October 24, 2023 4:27pm TAKE 1 TABLET BY MOUTH TWICE A DAY FOR 30 DAYS Start: 04-26-2023 End: 10-24-2023 take 25 mg by mouth twice daily Carvedilol Discontinue d 25 MG PO Twice daily 180 90 June 22, 2023 9:13am October 24, 2023 4:27pm Start: 04-14-2022 End: 04-26-2023 take 3.125 mg by mouth twice daily at mealtime Carvedilol Discontinued 3.125 MG PO Twice daily June 30, 2022 11:00pm April 26, 2023 12:02pm must administer with a meal/food Start: 02-23-2019 End: 07-01-2022 take 12.5 mg by mouth twice daily Carvedilol Discontinued 12.5 MG PO Twice daily February 23, 2019 12:00am July 01, 2022 8:44am take 1 tablet by freddy th every twelve hours Carvedilol 25 MG 1 tablet with food Orally Twice a day Active Carvedilol Activ e cholecalciferol 0.025 mg oral capsule (20 sources) Vitamin D Start: 07-01-2022 take 1 capsule by mouth twice daily Cholecalciferol (Vitamin D3) (Vitamin D3) 25 mcg (1,000 unit) Capsule Active 25 MCG PO Twice daily June 30, 2022 11:00pm Start: 10-06-2021 End: 07-01-2022 take 1 capsule by mouth once daily Cholecalciferol (Vitamin D3) (Vitamin D3) 50 mcg (2,000 unit) Capsule Discontinued 50 MCG PO Daily October 05, 2021 11:00pm July 01, 2022 8:45am take 1 tablet by freddy th every [...] 30 MG PO Daily July 20, 2023 9:18am Start: 04-26-2023 End: 07-20-2023 take 1 tablet by mouth once daily Isosorbide Mononitrate Discontinued 0 .ROUTE .COMPLEX June 28, 2023 12:30pm July 20, 2023 9:19am TAKE 1 TABLET BY MOUTH EVERY DAY Start: 02-23-2019 End: 04-26-2023 take 30 mg by mouth once daily Isosorbide Mononitrate Discontinued 30 MG PO Daily February 23, 2019 12:00am April 26, 2023 5:54pm Isosorbide [place] itrate Active isosorbide dinitrate 30 mg oral [...] 25 MG PO Daily October 22, 2023 12:27pm unless BP is greater than 140 Start: 09-03-2023 End: 10-22-2023 take 50 mg by mouth once daily Losartan Discontinued 5 0 MG PO Daily September 03, 2023 7:47am October 22, 2023 12:27pm Start: 07-26-2023 End: 09-03-2023 take 1 tablet by mouth twice daily Losartan Discontinued 0 .ROUTE .COMPLEX 180 July 26, 2023 11:44am September 03, 2023 7:47am TAKE 1 TABLET BY MOUTH TWICE A DAY FOR 30 DAYS Start: 07-26-2023 End: 09-03-2023 take 1 tablet [...] PO Daily at bedtime July 05, 2023 5:25pm July 26, 2023 11:44am Start: 06-22-2023 End: 06-22-2023 take 50 mg by mouth once daily Losartan Discontinued 5 0 MG PO Daily June 22, 2023 9:13am June 22, 2023 11:15am Start: 04-26-2023 End: 04-26-2023 take 50 mg by mouth twice daily Losartan Discontinued 50 MG PO Twice daily April 26, 2023 12:54pm April 26, 2023 12:56pm Start: 04-26-2023 End: 07-05-2023 take 50 mg by mouth twice daily Losartan Discontinued 50 MG PO Twice daily June 22, 2023 11:14am July 05, 2023 5:26pm Start: 02-04-2022 End: 04-26-2023 take 25 mg by mouth once daily Losartan Discontinued 2 5 MG PO Daily February 04, 2022 12:00am April 26, 2023 10:10am Losartan Potassi um 100 MG 1/2 Orally [...] Daily, # 30 tab(s), Refills(s) 6, Pharmacy: [facility]/pharmacy #[id number], 169, cm, 10/07/22 8:54:00 EDT, Height/Length Dosing, 61.5, kg, 10/07/22 8:54:00 EDT, Weight Dosing Start Date: 10/07/22 Status: Ordered pravastatin sodium 40 mg oral tablet (20 sources) HMG-CoA Reductase Inhibitor Start: 07-20-2023 take 40 mg by mouth once daily at bedtime Pravastatin Active 40 MG PO Daily at bedtime July 20, 2023 9:19am Start: 04-21-2023 End: 07-20-2023 take 1 tablet by mouth once daily in the evening Pravastatin Discontinued 0 .ROUTE .COMPLEX April 21, 2023 2:33pm July 20, 2023 9:19am TAKE 1 TABLET BY MOUTH EVERY DAY IN THE EVENING Start: 03-28-2019 End: 04-21-2023 take 40 mg by mouth once daily in the evening Pravastatin Discontinued 40 MG PO Every evening February 05, 2022 12:00am April 21, 2023 2:33pm Start: 02-23-2019 End: 02-05-2022 take 10 mg by mouth at bedtime Pravastatin Discontinue d 10 MG PO Bedtime February 23, 2019 12:00am February 05, 2022 6:50am Pravastatin Acti ve sulfamethoxazole 800 mg / trimethoprim 160 mg oral tablet (2 sources) Dihydrofolate Reductase Inhibitor Antibacterial, Sulfonamide Antimicrobial Start: 02-11-2022 End: 03-13-2022 Bactrim D.S. 800 mg-160 mg Tab 1 tab(s), Oral, BID for 30 day(s), 60 tab(s), Refill(s) 0, [facility]/pharmacy #[id number], 169, cm, 02/11/22 8:44:00 EST, Height/Length Dosing, 71, kg, 02/11/22 8:44:00 EST, Weight Dosing Start Date: 02/11/22 Stop Date: 03/13/22 Status: Ordered vancomycin 125 mg oral capsule (3 sources) Glycopeptide Antibacterial Start: 12-17-2023 take 125 mg by mouth four times daily Vancomycin Active 125 MG PO Four times daily 40 December 16, 2023 11:00pm Vitamin D3 (16 sources) Vitamin D3 Not-Taking [...] 2.5 MG PO Daily June 22, 2023 9:12am June 29, 2023 12:27pm Start: 04-26-2023 End: 06-22-2023 take 2.5 mg by mouth twice daily Amlodipine Discontinued 2.5 MG PO Twice daily April 26, 2023 12:00am June 22, 2023 9:15am Start: 04-05-2023 take 1 tablet by freddy th every twenty-four hours amLODIPine Besylate 2.5 MG 1 tablet Orally Once a day for 30 days Mar, Active Start: 04-05-2023 take 1 tablet by freddy th every twelve hours amLODIPine Besylate 2.5 MG 1 tablet Orally bid Mar, Active {1 (ascorbic acid 7540 MG / polyethylene glycol 3350 03212 MG / potassium chloride 1200 MG / sodium ascorbate 24819 MG / sodium chloride 3200 MG Powder for Oral Solution) / 1 (polyethylene glycol 3350 818768 MG / potassium chloride 1000 MG / [...] Discontinued 81 MG PO Daily at bedtime June 30, 2022 11:00pm October 19, 2023 3:35pm Start: 01-28-2021 take 1 mg by mouth e very other day aspirin 81 mg oral capsule mg cap(s), Oral, Every other day, Refills(s) 0 Start Date: 01/28/21 Status: Ordered Start: 02-23-2019 End: 07-01-2022 take 81 mg by mouth once daily Aspirin Discontinued 81 MG PO Daily February 23, 2019 12:00am July 01, 2022 8:43am take 1 tablet by freddy once daily Aspirin 81 81 MG 1 tablet Orally Once a day Active Calcium (13 sources) Phosphate Binder, Calcium Calciu m Not-Taking Calcium Active calcium citrate 1040 mg oral tablet (20 sources) Start: 07-01-2022 End: 06-22-2023 take 600 mg by mouth twice daily Calcium Citrate Discontinued 600 MG PO Twice daily June 30, 2022 11:00pm June 22, 2023 11:14am Start: 02-11-2022 take 2 tablets by mo [facility] three times daily calcium (as calcium citrate) 200 mg oral tablet 180 EA, TAKE 2 TABLETS BY MOUTH 3 TIMES A DAY, Refills(s) 0 Start Date: 02/11/22 Status: Ordered cefdinir 300 mg oral capsule (7 sources) Cephalosporin Antibacterial Start: 10-19-2023 End: 11-15-2023 take 300 mg by mouth twice daily Cefdinir Discontinued 300 MG PO Twice daily October 18, 2023 11:00pm November 15, 2023 9:16am clopidogrel 75 mg oral tablet (20 sources) P2Y12 Platelet Inhibitor Start: 09-16-2021 End: 04-26-2023 take 75 mg by mouth once daily in the morning Clopidogrel Discontinued 75 MG PO Every morning June 30, 2022 11:00pm April 26, 2023 12:04pm diphenhydrAMINE hydrochloride 50 mg oral capsule (20 sources) Histamine-1 Receptor Antagonist Start: 06-15-2023 End: 06-22-2023 Diphenhydramine Hcl Discontinued 50 MG PO Once 1 June 14, 2023 11:00pm June 22, 2023 11:16am Orally 60 minutes prior to test Start: 05-27-2023 End: 06-22-2023 Diphenhydramine Hcl (Benadry l Allergy) 50 mg tablet Discontinued 50 MG PO Once May 26, 2023 11:00pm June 22, 2023 11:14am Orally 60 minutes prior to test doxazosin 4 mg oral tablet (20 sources) alpha-Adrenergic Patel Start: 02-23-2019 End: 10-06-2021 take 4 mg by mouth once daily Doxazosin Discontinued 4 MG PO Daily February 23, 2019 12:00am October 06, 2021 9:38am hydroCHLOROthiazide 25 mg oral tablet (7 sources) Thiazide Diuretic Start: 10-19-2023 End: 11-23-2023 take 25 mg by mouth once daily Hydrochlorothiazide Discontinued 25 MG PO Daily October 18, 2023 11:00pm November 23, 2023 9:30am On Hold: None omeprazole 20 mg delayed release oral capsule (10 sources) Proton Pump Inhibitor Start: 08-27-2023 End: 10-19-2023 take 20 mg by mouth once daily Omeprazole Discontinued 20 MG PO Daily August 26, 2023 11:00pm October 19, 2023 3:35pm oxybutynin chloride 5 mg oral tablet (20 sources) Cholinergic Muscarinic Antagonist Start: 04-26-2023 End: 06-22-2023 take 5 mg by mouth every eight hours Oxybutynin Chloride Discontinued 5 MG PO Every 8 hours April 26, 2023 12:00am June 22, 2023 11:15am take 1 tablet by freddy th every eight hours as needed oxyBUTYnin Chloride 5 MG 1 tablet Orally every 8 hours as needed Active potassium chloride 10 meq extended release oral capsule (7 sources) Start: 10-19-2023 End: 11-23-2023 take 10 mEq by mouth twice daily Potassium Chloride Discontinued 10 MEQ PO Twice daily October 18, 2023 11:00pm November 23, 2023 9:30am On Hold: None predniSONE 50 mg oral tablet (20 sources) Start: 06-15-2023 End: 06-22-2023 Prednisone Discontinued 50 MG PO .COMPLEX 3 June 14, 2023 11:00pm June 22, 2023 11:15am 50 mg orally Three (3) doses; 6 hours apart with LAST dose ending 30 minutes before test Start: 05-27-2023 End: 06-22-2023 Prednisone Discontinued 50 M G PO Once May 26, 2023 11:00pm June 22, 2023 11:15am Orally for (3) THREE DOSES; 6 hours apart with the last dose 30 minutes before test. tamsulosin hydrochloride 0.4 mg oral capsule (20 sources) alpha-Adrenergic Patel Start: 04-26-2023 End: 06-22-2023 take 0.4 mg by mouth once daily Tamsulosin Discontinued 0.4 MG PO Daily April 26, 2023 12:00am June 22, 2023 11:15am take 1 capsule by mo [facility] every twenty-four hours Tamsulosin HCl 0.4 MG 1 capsule Orally Once a day Active Problems Active Problems Problem Classification Problem Date Documented Da te Episodic/Chronic Acute myocardial infarction (18 sources) Myocardial infarction; Translations: [Non-ST elevation (NSTEMI) myocardial infarction] 10-18-2023 Chronic Allergic reactions (15 sources) Allergy to contrast media; Translations: [Radiographic [...] kidney] Onset: 04-15-2022 03-28-2019 Episodic Cardiac dysrhythmias (20 sources) Atrial fibrillation; Translations: [Unspecified atrial fibrillation] 10-18-2023 Chronic Congestive heart failure; nonhypertensive (20 sources) Acute exacerbation of chronic congestive heart failure; Translations: [Acute on chronic diastolic (congestive) heart failure] 10-17-2023 Chronic Coronary atherosclerosis and other heart disease (20 sources) Coronary arteriosclerosis; Translations: [Atherosclerotic heart disease of [place] coronary artery without angina pectoris] Onset: 11-14-2021 [...] ; Translations: [Nonrheumatic aortic (valve) stenosis] Onset: 08-19-2023 Chronic Hyperplasia of prostate (20 sources) Benign prostatic hypertrophy with outflow obstruction; Translations: [Benign prostatic hyperplasia with lower urinary tract symptoms] Onset: 02-10-2022 Chronic Immunizations and screening for infectious disease (1 source) Encounter for immunization; Translations: [Encounter For Immunization] Onset: 06-13-2020 Episodic Inflammatory conditions of male genital organs (10 sources) Prostatitis; Translations: [Inflammatory disease of prostate, unspecified] Onset: 02-11-2022 Episodic Intestinal infection (6 sources) Clostridium difficile colitis; Translations: [Enterocolitis due to Clostridium difficile, not specified as recurrent] 12-19-2023 Episodic Nutritional deficiencies (20 sources) Vitamin D [...] Chronic Other bone disease and musculoskeletal deformities (13 sources) Paget's disease of pelvis; Translations: [Osteitis [...] uropathy] Onset: 05-04-2023 Episodic Other gastrointestinal disorders (20 sources) Diarrhea; Translations: [Diarrhea, unspecified] 12-15-2023 Episodic Other injuries and conditions due to external causes (3 sources) Foreign body in bladder; Translations: [Foreign body in bladder, initial encounter] Onset: 05-04-2023 Episodic Other lower respiratory disease (18 sources) Dyspnea on exertion; Translations: [Other forms of dyspnea] Episodic Other lower respiratory disease (2 sources) Other forms of dyspnea; Translations: [Other forms of dyspnea] Onset: 01-18-2024 Episodic Other male genital disorders (17 sources) [...] of mental health and substance abuse codes (20 sources) Ex-smoker; Translations: [Personal history of nicotine [...] [Abdominal aortic aneurysm, without rupture, unspecified] Onset: 01-11-2024 Unclassified (1 source) Other ventricular tachycardia; Translations: [Other ventricular tachycardia] Onset: 01-18-2024 Unclassified (2 sources) New Patient; Translations: [New [...] CL INIT TRICIA FX] Onset: 2 Episodic Neoplasms of unspecified nature or uncertain behavior (4 sources) Neoplasm of uncertain behavior of liver, gallbladder and bile ducts; Translations: [Neoplasm of unspecified behavior of digestive system] Onset: 4 Episodic Other aftercare (1 source) Other manager intermediate (current) drug therapy; Translations: [OTH BANKING ASSISTANT CURRENT DRUG THERAPY] Onset: 2 Episodic Other aftercare (1 source) [facility] (current) use of anticoagulants; Translations: [CARE HOME CURRNT USE ANTICOAGULANTS] Onset: 2 Episodic Other aftercare (1 source) manager intermediate (current) use of aspirin; Translations: [CARE HOME CURRENT USE OF ASPIRIN] Onset: 2 Episodic [...] SUBSQT FX RTN] Onset: 2 Episodic Other fractures (2 sources) Fracture of unspecified part of left clavicle, subsequent encounter for fracture with routine healing; Translations: [Fracture of unspecified part of left clavicle, subsequent encounter for fracture with routine healing] Onset: 4 Episodic Other non-traumatic joint disorders (3 sources) Pain in right shoulder; Translations: [PAIN IN RIGHT SHOULDER] Onset: 2 Episodic Other screening for suspected conditions (not mental disorders or infectious disease) (2 sources) Encounter for screening for diseases of the blood and blood-forming organs and certain disorders involving the immune mechanism; Translations: [Encounter for screening for diseases of the blood and blood-forming organs and certain disorders involving the immune mechanism] Onset: 4 Episodic Unclassified (4 sources) Abdominal aortic aneurysm (AAA) 3.0 cm to 5.5 cm in diameter in male I71.40 Unclassified (1 source) SUBACUTE COUGH; Translations: [SUBACUTE COUGH] Onset: 2 Unclassified (1 source) CONTACT W/AND (SUSP) EXPOS COVID-19; Translations: [CONTACT W/AND (SUSP) EXPOS COVID-19] Onset: 2 Unclassified (1 source) Infrarenal abdominal aortic aneurysm (AAA) without rupture I71.43 Unclassified (1 source) Other ventricular tachycardia; Translations: [Other ventricular tachycardia] Onset: 4 Results Test Name Value Interpretation Reference Range Facility Follow-Upon 01-19-2024 Follow-Up [id number] Clarice [address] 1940 Date Provider Department Center 01/19/2024 [id number] BRYANT DCC ONC DCC Family History Problem Relation Age of Onset Heart disease Mother No Known Problems Father No Known Problems Sister Family Status - Relation Status Age at Mother Father Sister Alive Level of Service:24623 [place] OFFICE/OUTPATIENT ESTABLISHED LOW MDM 20 MIN Reason for Visit and Comments: Follow-up [351006] - Here for 3 month F/U of his chronic cholecystitis. Review LFT's. Normal [facility] Orders Onlyon 01-19-2024 Orders Only [id number] Clarice Baker minoo Melgoza 1940 M Date Provider Department Center 01/19/2024 [id number], HISTORICAL DCC ONC DCC Family History Problem Relation Age of Onset Heart disease Mother No Known Problems Father No Known Problems Sister Family Status - Relation Status Age at Mother Father Sister Alive Normal [facility] Office Visiton 01-18-2024 Follow-up visit [id number] Kris Bakerjoan Melgoza 1940 [facility] Provider Department Center 01/18/2024 241-CL[address] [facility] Family History Problem Relation Age of Onset Heart disease Mother No Known Problems Father No Known Problems Sister Family Status - Relation Status Age at Mother Father Sister Alive Level of Service:50388 [place] OFFICE/OUTPATIENT NEW MODERATE MDM 45 MINUTES Normal [facility] US aortaon 01-11-2024 aorta [facility] [address] [place] [address] Ultrasound Report Signed Patient: Chico Baker MR#: [id number] : 1940 Acct:[id number] Age/Sex: 83 / M ADM Date: 01/11/24 Loc: [facility] Room: Type: [facility] Attending Dr: Raul Quan MD Ordering Provider: Raul Quan MD Date of Service: 01/11/24 US/ aorta: I71.40 - Abdominal aortic aneurysm, without rupture, unsp... Copies to: Raul Quan MD ULTRASOUND OF THE ABDOMINAL AORTA: CLINICAL INFORMATION: Percutaneous aneurysm repair COMPARISON : CT scan dated June 2023 TECHNIQUE AND FINDINGS: Multiple ultrasonographic scans of the abdominal aorta were obtained and show stable aneurysm sac size Following measurement were obtained: Proximal height: 1.94 cm width : 2.1 Mid height: 2.5 cm width : 2.7 Distal height: 5.12 cm width : 5.3 Bilateral common iliac arteries showstable iliac and measure 0.9 in height and 1.4 in width on the right and 1.1 in height and 1.3 in width on the left US/US aorta IMPRESSION: Stable infrarenal abdominal aortic aneurysm sac after endovascular aneurysm repair Impression dictated by: Raul Quan M.D.01/11/2024 11:12 AM Dictation Location: [place] [address] Tech: Harika Lorne Transcribed By: ALEX 01/11/24 111 Dictated By: Raul Quan MD 01/11/24 111 Signed By: 01/11/24 111 Normal [facility] Basophils Auto (Bld) [#/Vol] on 12-17-2023 Basophils (Bld) [#/Vol] 0.1 10 3/uL 0.0-0.1 [facility] Basophils/100 WBC Auto (Bld) on 12-17-2023 Basophils/100 WBC (Bld) 0.7 % 0.2-2.0 [facility] Eosinophils/100 WBC Auto (Bl d)on 12-17-2023 Eosinophils/100 WBC (Bld) 1.4 % 0.9-7.0 [facility] Erythrocyte distribution wid th Auto (RBC) [Ratio]on 12-17-2023 Erythrocyte distribution width (RBC) [Ratio] 12.3 % 11.0-15.0 [facility] Hematocrit Auto (Bld) [Volum e fraction]on 12-17-2023 Hematocrit (Bld) [Volume fraction] 39.0 % Low 42.0-54.0 [facility] Hemoglobin [Mass/volume] in Bloodon 12-17-2023 Hemoglobin (Bld) [Mass/Vol] 12.7 g/dL Low 14.0-18.0 [facility] Laboratory - Hematology and Cell countson 12-17-2023 Immature granulocytes/100 WBC (Bld) 0.3 % 0.0-0.5 [facility] Leukocytes [#/volume] correc shyann for nucleated erythrocytes in Blood by Automated counon 12-17-2023 WBC corrected for nucl RBC Auto (Bld) [#/Vol] 10.7 10 3/uL 4.0-11.0 [facility] Lymphocytes Auto (Bld) [#/Vo l]on 12-17-2023 Lymphocytes (Bld) [#/Vol] 1.7 10 3/uL 1.2-3.8 [facility] Lymphocytes/100 WBC Auto (Bl d)on 12-17-2023 Lymphocytes/100 WBC (Bld) 15.7 % Low 20.5-60.0 [facility] MCH Auto (RBC) [Entitic mass ]on 12-17-2023 MCH (RBC) [Entitic mass] 30.4 pg 25.9-34.0 [facility] MCHC Auto (RBC) [Mass/Vol]on 12-17-2023 MCHC (RBC) [Mass/Vol] 32.6 g/dL 29.9-35.2 [facility] MCV Auto (RBC) [Entitic vol] on 12-17-2023 MCV (RBC) [Entitic vol] 93.3 fL 80.0-94.0 [facility] Monocytes Auto (Bld) [#/Vol] on 12-17-2023 Monocytes (Bld) [#/Vol] 1.0 10 3/uL High 0.3-0.8 [facility] Monocytes/100 WBC Auto (Bld) on 12-17-2023 Monocytes/100 WBC (Bld) 9.7 % 1.7-12.0 [facility] Neutrophils Auto (Bld) [#/Vo l]on 12-17-2023 Neutrophils (Bld) [#/Vol] 7.7 10 3/uL High 1.4-6.5 [facility] Neutrophils/100 WBC Auto (Bl d)on 12-17-2023 Neutrophils/100 WBC (Bld) 72.2 % 43.0-75.0 [facility] No Panel Informationon 12-16 C-Reactive Protein, Quantitative 0.59 mg/dL High <=0.50 [facility] Eosinophils # (Auto) 0.2 10 3/uL 0.0-0.7 [facility] Immature Granulocyte # (Auto) 0.03 10 3/uL 0.00-0.03 [facility] Clostridium difficile (PCR)(LAB) Positive Abnormal NEGATIVE [facility] Comment on above: RESULTS CALLED TO CARLOS A RICHARDS Miscellaneous Test Comment See comment [facility] Comment on above: Specimen Source: ST - Stool - Stool - 700.100 Stool Campylobacter Culture Res 1 \R\ Campylobacter Culture\R\ No Campylobacter species isolated. [facility] Comment on above: [facility], No Panel InformationOrdered By: Shailesh Dunham on 12-17-2023 E coli Shiga Toxin EIA Fi [facility] Salmonella/Shigella Screen [facility] Platelet mean volume Auto (B ld) [Entitic vol]on 12-17-2023 Platelet mean volume (Bld) [Entitic vol] 9.4 fL Low 9.5-13.5 [facility] Platelets Auto (Bld) [#/Vol] on 12-17-2023 Platelets (Bld) [#/Vol] 190 10 3/uL 150-450 [facility] RBC Auto (Bld) [#/Vol]on RBC (Bld) [#/Vol] 4.18 10 6/uL Low 4.70-6.10 [facility] US carotid doppler BIon 09-0 [place] [address] Ultrasound Report Signed Patient: Chico Baker MR#: [id number] 284 : 1940 Acct:[id number] Age/Sex: 83 / M ADM Date: 11/15/23 Loc: [facility] Room: Type: [facility] Attending Dr: Raul Quan MD Ordering [...] Raul Quan M.D.11/15/2023 10:27 AM Dictation Location: [place] [address] Tech: Jennifer Mancini Transcribed By: ALEX 11/15/23 1027 Dictated By: Raul Quan MD 11/15/23 1025 Signed By: 11/15/23 1027 Normal [facility] Office Visiton 10-27-2023 Follow-up visit [id number] Clarice Baker minoo J 1940 M Date Provider Department Center 10/27/2023 [id number] BRYANT DCC ONC DCC Family History Problem Relation Age of Onset Heart disease Mother No Known Problems Father No Known Problems Sister Family Status - Relation Status Age at Mother Father Sister Alive Level of Service:[address] [place] POSTOP FOLLOW UP VISIT RELATED TO ORIGINAL PX Reason for Visit and Comments: Post-op [483] - Here for post-op visit - S/P robot 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 Normal [facility] Basophils Auto (Bld) [#/Vol] on 10-26-2023 Basophils (Bld) [#/Vol] 0.1 10 3/uL 0.0-0.1 [facility] Basophils/100 WBC Auto (Bld) on 10-26-2023 Basophils/100 WBC (Bld) 0.5 % 0.2-2.0 [facility] Eosinophils/100 WBC Auto (Bl d)on 10-26-2023 Eosinophils/100 WBC (Bld) 2.9 % 0.9-7.0 [facility] Erythrocyte distribution wid th Auto (RBC) [Ratio]on 10-26-2023 Erythrocyte distribution width (RBC) [Ratio] 12.7 % 11.0-15.0 [facility] Estimated glomerular filtrat ion rate (GFR) non- Americanon 10-26-2023 GFR/1.73 sq M.predicted among non-blacks MDRD (S/P/Bld) [Vol rate/Area] mL/min/{1.73_m2} >=60 [facility] Globulin Calc (S) [Mass/Vol] on 10-26-2023 Globulin (S) [Mass/Vol] 3.9 g/dL [facility] Hematocrit Auto (Bld) [Volum e fraction]on 10-26-2023 Hematocrit (Bld) [Volume fraction] 32.4 % Low 42.0-54.0 [facility] Hemoglobin [Mass/volume] in Bloodon 10-26-2023 Hemoglobin (Bld) [Mass/Vol] 10.4 g/dL Low 14.0-18.0 [facility] Laboratory - Chemistry and C hemistry - challengeon 10-26-2023 Albumin [Mass/Vol] 3.1 g/dL Low 3.4-5.0 [facility] ALP [Catalytic activity/Vol] 106 U/L 46-116 [facility] ALT [Catalytic activity/Vol] 19 U/L 16-63 [facility] AST [Catalytic activity/Vol] 16 U/L 15-37 [facility] Bilirubin [Mass/Vol] 0.5 mg/dL 0.2-1.0 [facility] Calcium [Mass/Vol] 8.8 mg/dL 8.5-10.1 [facility] Chloride [Moles/Vol] 100 mmol/L 98-107 [facility] CO2 [Moles/Vol] 29.0 mmol/L 21.0-32.0 [facility] Creatinine [Mass/Vol] 0.95 mg/dL 0.70-1.30 [facility] GFR/1.73 sq M.predicted MDRD (S/P/Bld) [Vol rate/Area] mL/min/{1.73_m2} >=60 [facility] Glucose [Mass/Vol] 134 mg/dL High 74-106 [facility] Potassium [Moles/Vol] 4.5 mmol/L 3.5-5.1 [facility] Protein [Mass/Vol] 7.0 g/dL 6.4-8.2 [facility] Sodium [Moles/Vol] 136 mmol/L 136-145 [facility] TSH Qn 2.068 m[IU]/L 0.358-3.74 0 [facility] Urea nitrogen [Mass/Vol] 14.0 mg/dL 7.0-18.0 [facility] Urea nitrogen/Creatinine [Mass ratio] 14.7 mg/mg [facility] Laboratory - Hematology and Cell countson 10-26-2023 Immature granulocytes/100 WBC (Bld) 0.5 % 0.0-0.5 [facility] Leukocytes [#/volume] correc shyann for nucleated erythrocytes in Blood by Automated counon 10-26-2023 WBC corrected for nucl RBC Auto (Bld) [#/Vol] 12.4 10 3/uL High 4.0-11.0 [facility] Lymphocytes Auto (Bld) [#/Vo l]on 10-26-2023 Lymphocytes (Bld) [#/Vol] 1.4 10 3/uL 1.2-3.8 [facility] Lymphocytes/100 WBC Auto (Bl d)on 10-26-2023 Lymphocytes/100 WBC (Bld) 11.6 % Low 20.5-60.0 [facility] MCH Auto (RBC) [Entitic mass ]on 10-26-2023 MCH (RBC) [Entitic mass] 30.0 pg 25.9-34.0 [facility] MCHC Auto (RBC) [Mass/Vol]on 10-26-2023 MCHC (RBC) [Mass/Vol] 32.1 g/dL 29.9-35.2 [facility] MCV Auto (RBC) [Entitic vol] on 10-26-2023 MCV (RBC) [Entitic vol] 93.4 fL 80.0-94.0 [facility] Monocytes Auto (Bld) [#/Vol] on 10-26-2023 Monocytes (Bld) [#/Vol] 1.4 10 3/uL High 0.3-0.8 [facility] Monocytes/100 WBC Auto (Bld) on 10-26-2023 Monocytes/100 WBC (Bld) 11.0 % 1.7-12.0 [facility] Neutrophils Auto (Bld) [#/Vo l]on 10-26-2023 Neutrophils (Bld) [#/Vol] 9.1 10 3/uL High 1.4-6.5 [facility] Neutrophils/100 WBC Auto (Bl d)on 10-26-2023 Neutrophils/100 WBC (Bld) 73.5 % 43.0-75.0 [facility] No Panel Informationon 10-25 Eosinophils # (Auto) 0.4 10 3/uL 0.0-0.7 [facility] Immature Granulocyte # (Auto) 0.06 10 3/uL High 0.00-0.03 [facility] Platelet mean volume Auto (B ld) [Entitic vol]on 10-26-2023 Platelet mean volume (Bld) [Entitic vol] 9.2 fL Low 9.5-13.5 [facility] Platelets Auto (Bld) [#/Vol] on 10-26-2023 Platelets (Bld) [#/Vol] 209 10 3/uL 150-450 [facility] RBC Auto (Bld) [#/Vol]on RBC (Bld) [#/Vol] 3.47 10 6/uL Low 4.70-6.10 [facility] Serum or plasma albumin/glob ulin mass ratioon 10-26-2023 Albumin/Globulin [Mass ratio] 0.8 {ratio} [facility] Serum or plasma anion gap de terminationon 10-26-2023 Anion gap [Moles/Vol] 11.5 mmol/L [facility] Basophils Auto (Bld) [#/Vol] on 10-17-2023 Basophils (Bld) [#/Vol] 0.0 10 3/uL 0.0-0.1 [facility] Basophils/100 WBC Auto (Bld) on 10-17-2023 Basophils/100 WBC (Bld) 0.2 % 0.2-2.0 [facility] Eosinophils/100 WBC Auto (Bl d)on 10-17-2023 Eosinophils/100 WBC (Bld) 1.6 % 0.9-7.0 [facility] Erythrocyte distribution wid th Auto (RBC) [Ratio]on 10-17-2023 Erythrocyte distribution width (RBC) [Ratio] 12.2 % 11.0-15.0 [facility] Estimated glomerular filtrat ion rate (GFR) non- Americanon 10-17-2023 GFR/1.73 sq M.predicted among non-blacks MDRD (S/P/Bld) [Vol rate/Area] mL/min/{1.73_m2} >=60 [facility] Globulin Calc (S) [Mass/Vol] on 10-17-2023 Globulin (S) [Mass/Vol] 3.5 g/dL [facility] Hematocrit Auto (Bld) [Volum e fraction]on 10-17-2023 Hematocrit (Bld) [Volume fraction] 29.1 % Low 42.0-54.0 [facility] Hemoglobin [Mass/volume] in Bloodon 10-17-2023 Hemoglobin (Bld) [Mass/Vol] 9.6 g/dL Low 14.0-18.0 [facility] Laboratory - Chemistry and C hemistry - challengeon 10-17-2023 Albumin [Mass/Vol] 2.8 g/dL Low 3.4-5.0 [facility] ALP [Catalytic activity/Vol] 99 U/L 46-116 [facility] ALT [Catalytic activity/Vol] 33 U/L 16-63 [facility] AST [Catalytic activity/Vol] 15 U/L 15-37 [facility] Bilirubin [Mass/Vol] 0.8 mg/dL 0.2-1.0 [facility] Calcium [Mass/Vol] 8.4 mg/dL Low 8.5-10.1 [facility] Chloride [Moles/Vol] 96 mmol/L Low 98-107 [facility] CO2 [Moles/Vol] 30.9 mmol/L 21.0-32.0 [facility] Creatinine [Mass/Vol] 0.84 mg/dL 0.70-1.30 [facility] GFR/1.73 sq M.predicted MDRD (S/P/Bld) [Vol rate/Area] mL/min/{1.73_m2} >=60 [facility] Glucose [Mass/Vol] 103 mg/dL 74-106 [facility] Natriuretic peptide B (Bld) [Mass/Vol] 1963.0 pg/mL High <=1800.0 [facility] Comment on above: RESULTS CALLED TO MIMI Elaine RN @BY Fuad Carmona MLT at 0617 Potassium [Moles/Vol] 3.8 mmol/L 3.5-5.1 [facility] Protein [Mass/Vol] 6.3 g/dL Low 6.4-8.2 [facility] Sodium [Moles/Vol] 130 mmol/L Low 136-145 [facility] Urea nitrogen [Mass/Vol] 28.0 mg/dL High 7.0-18.0 [facility] Urea nitrogen/Creatinine [Mass ratio] 33.3 mg/mg [facility] Laboratory - Hematology and Cell countson 10-17-2023 Immature granulocytes/100 WBC (Bld) 0.4 % 0.0-0.5 [facility] Leukocytes [#/volume] correc shyann for nucleated erythrocytes in Blood by Automated counon 10-17-2023 WBC corrected for nucl RBC Auto (Bld) [#/Vol] 9.1 10 3/uL 4.0-11.0 [facility] Lymphocytes Auto (Bld) [#/Vo l]on 10-17-2023 Lymphocytes (Bld) [#/Vol] 1.2 10 3/uL 1.2-3.8 [facility] Lymphocytes/100 WBC Auto (Bl d)on 10-17-2023 Lymphocytes/100 WBC (Bld) 13.5 % Low 20.5-60.0 [facility] MCH Auto (RBC) [Entitic mass ]on 10-17-2023 MCH (RBC) [Entitic mass] 30.2 pg 25.9-34.0 [facility] MCHC Auto (RBC) [Mass/Vol]on 10-17-2023 MCHC (RBC) [Mass/Vol] 33.0 g/dL 29.9-35.2 [facility] MCV Auto (RBC) [Entitic vol] on 10-17-2023 MCV (RBC) [Entitic vol] 91.5 fL 80.0-94.0 [facility] Monocytes Auto (Bld) [#/Vol] on 10-17-2023 Monocytes (Bld) [#/Vol] 1.1 10 3/uL High 0.3-0.8 [facility] Monocytes/100 WBC Auto (Bld) on 10-17-2023 Monocytes/100 WBC (Bld) 12.0 % 1.7-12.0 [facility] Neutrophils Auto (Bld) [#/Vo l]on 10-17-2023 Neutrophils (Bld) [#/Vol] 6.6 10 3/uL High 1.4-6.5 [facility] Neutrophils/100 WBC Auto (Bl d)on 10-17-2023 Neutrophils/100 WBC (Bld) 72.3 % 43.0-75.0 [facility] No Panel Informationon 10-16 Eosinophils # (Auto) 0.2 10 3/uL 0.0-0.7 [facility] Immature Granulocyte # (Auto) 0.04 10 3/uL High 0.00-0.03 [facility] Troponin I High Sensitivity 180.4 pg/mL High 4.0-76.1 [facility] Comment on above: RESULTS CALLED TO MIMI [...] volume (Bld) [Entitic vol] 9.7 fL 9.5-13.5 [facility] Platelets Auto (Bld) [#/Vol] on 10-17-2023 Platelets (Bld) [#/Vol] 191 10 3/uL 150-450 [facility] RBC Auto (Bld) [#/Vol]on RBC (Bld) [#/Vol] 3.18 10 6/uL Low 4.70-6.10 [facility] Serum or plasma albumin/glob ulin mass ratioon 10-17-2023 Albumin/Globulin [Mass ratio] 0.8 {ratio} [facility] Serum or plasma anion gap de terminationon 10-17-2023 Anion gap [Moles/Vol] 6.9 mmol/L [facility] Basophils Auto (Bld) [#/Vol] on 10-16-2023 Basophils (Bld) [#/Vol] 0.0 10 3/uL 0.0-0.1 [facility] Basophils/100 WBC Auto (Bld) on 10-16-2023 Basophils/100 WBC (Bld) 0.2 % 0.2-2.0 [facility] Basophils/100 WBC Manual cnt (Bld)on 10-16-2023 Basophils/100 WBC (Bld) 1.0 % 0.2-2.0 [facility] Eosinophils/100 WBC Auto (Bl d)on 10-16-2023 Eosinophils/100 WBC (Bld) 0.3 % Low 0.9-7.0 [facility] Eosinophils/100 WBC Manual c nt (Bld)on 10-16-2023 Eosinophils/100 WBC (Bld) 0.0 % Low 0.9-7.0 [facility] Erythrocyte distribution wid th Auto (RBC) [Ratio]on 10-16-2023 Erythrocyte distribution width (RBC) [Ratio] 12.4 % 11.0-15.0 [facility] Estimated glomerular filtrat ion rate (GFR) non- Americanon 10-16-2023 GFR/1.73 sq M.predicted among non-blacks MDRD (S/P/Bld) [Vol rate/Area] mL/min/{1.73_m2} >=60 [facility] Globulin Calc (S) [Mass/Vol] on 10-16-2023 Globulin (S) [Mass/Vol] 3.7 g/dL [facility] Hematocrit Auto (Bld) [Volum e fraction]on 10-16-2023 Hematocrit (Bld) [Volume fraction] 30.5 % Low 42.0-54.0 [facility] Hemoglobin [Mass/volume] in Bloodon 10-16-2023 Hemoglobin (Bld) [Mass/Vol] 10.2 g/dL Low 14.0-18.0 [facility] Laboratory - Chemistry and C hemistry - challengeon 10-16-2023 Albumin [Mass/Vol] 2.9 g/dL Low 3.4-5.0 [facility] ALP [Catalytic activity/Vol] 98 U/L 46-116 [facility] ALT [Catalytic activity/Vol] 45 U/L 16-63 [facility] AST [Catalytic activity/Vol] 19 U/L 15-37 [facility] Bilirubin [Mass/Vol] 0.8 mg/dL 0.2-1.0 [facility] Calcium [Mass/Vol] 8.3 mg/dL Low 8.5-10.1 [facility] Chloride [Moles/Vol] 97 mmol/L Low 98-107 [facility] CO2 [Moles/Vol] 31.7 mmol/L 21.0-32.0 [facility] Creatinine [Mass/Vol] 0.84 mg/dL 0.70-1.30 [facility] GFR/1.73 sq M.predicted MDRD (S/P/Bld) [Vol rate/Area] mL/min/{1.73_m2} >=60 [facility] Glucose [Mass/Vol] 94 mg/dL 74-106 [facility] Natriuretic peptide B (Bld) [Mass/Vol] 4170.0 pg/mL High <=1800.0 [facility] Comment on above: RESULTS CALLED TO PRECIOUS MURPHY RN Potassium [Moles/Vol] 3.5 mmol/L 3.5-5.1 [facility] Protein [Mass/Vol] 6.6 g/dL 6.4-8.2 [facility] Sodium [Moles/Vol] 132 mmol/L Low 136-145 [facility] Urea nitrogen [Mass/Vol] 31.0 mg/dL High 7.0-18.0 [facility] Urea nitrogen/Creatinine [Mass ratio] 36.9 mg/mg [facility] Laboratory - Hematology and Cell countson 10-16-2023 Lymphocytes/100 WBC (Bld) 12.0 % Low 20.5-60.0 [facility] Monocytes/100 WBC (Bld) 11.0 % 1.7-12.0 [facility] Immature granulocytes/100 WBC (Bld) 0.3 % 0.0-0.5 [facility] Leukocytes [#/volume] correc shyann for nucleated erythrocytes in Blood by Automated counon 10-16-2023 WBC corrected for nucl RBC Auto (Bld) [#/Vol] 11.6 10 3/uL High 4.0-11.0 [facility] Lymphocytes Auto (Bld) [#/Vo l]on 10-16-2023 Lymphocytes (Bld) [#/Vol] 1.4 10 3/uL 1.2-3.8 [facility] Lymphocytes/100 WBC Auto (Bl d)on 10-16-2023 Lymphocytes/100 WBC (Bld) 14.6 % Low 20.5-60.0 [facility] MCH Auto (RBC) [Entitic mass ]on 10-16-2023 MCH (RBC) [Entitic mass] 30.4 pg 25.9-34.0 [facility] MCHC Auto (RBC) [Mass/Vol]on 10-16-2023 MCHC (RBC) [Mass/Vol] 33.4 g/dL 29.9-35.2 [facility] MCV Auto (RBC) [Entitic vol] on 10-16-2023 MCV (RBC) [Entitic vol] 91.0 fL 80.0-94.0 [facility] Monocytes Auto (Bld) [#/Vol] on 10-16-2023 Monocytes (Bld) [#/Vol] 1.1 10 3/uL High 0.3-0.8 [facility] Monocytes/100 WBC Auto (Bld) on 10-16-2023 Monocytes/100 WBC (Bld) 12.3 % High 1.7-12.0 [facility] Neutrophils Auto (Bld) [#/Vo l]on 10-16-2023 Neutrophils (Bld) [#/Vol] 6.7 10 3/uL High 1.4-6.5 [facility] Neutrophils/100 WBC Auto (Bl d)on 10-16-2023 Neutrophils/100 WBC (Bld) 72.3 % 43.0-75.0 [facility] No Panel Informationon 10-15 Absolute Basophils (Manual) 0.11 10 3/uL High 0.00-0.10 [facility] Eosinophils # (Manual) 0.00 10 3/uL 0.00-0.70 [facility] Lymphocytes # (Manual) 1.39 10 3/uL 1.20-3.80 [facility] Monocytes # (Manual) 1.27 10 3/uL High 0.30-0.80 [facility] Segmented Neutrophils # (Manual) 8.81 10 3/uL High 1.4-6.5 [facility] Aerobic Culture Result 1 \R\ Result 3\R\ APPLIED PSYCHOLOGY CHAIR [facility] Comment on above: [facility], Aerobic Culture Result 2 \R\ Result 4\R\ APPLIED PSYCHOLOGY CHAIR [facility] Comment on above: [facility], Gram Stain Comment (LAB) [facility] Gram Stain Result 1 Positive [facility] Comment on above: [facility], Gram Stain Result 2 Negative [facility] Comment on above: [facility], Miscellaneous Test Comment See comment [facility] Comment on above: Specimen Source: S - Sputum - Sputum - 300.100 Sputum Other Cells \R\ White Blood Cells [facility] Sputum Other Cells 2 \R\ Epithelial Cell s\R\ Few [facility] Comment on above: [facility], Eosinophils # (Auto) 0.0 10 3/uL 0.0-0.7 [facility] Immature Granulocyte # (Auto) 0.03 10 3/uL 0.00-0.03 [facility] Troponin I High Sensitivity 209.6 pg/mL High 4.0-76.1 [facility] Comment on above: RESULTS CALLED TO PRECIOUS MURPHY,RNCUT-OFF POINTS HAVE BEEN ESTABLISHED BASED ON THE [...] volume (Bld) [Entitic vol] 9.5 fL 9.5-13.5 [facility] Platelets Auto (Bld) [#/Vol] on 10-16-2023 Platelets (Bld) [#/Vol] 240 10 3/uL 150-450 [facility] RBC Auto (Bld) [#/Vol]on RBC (Bld) [#/Vol] 3.35 10 6/uL Low 4.70-6.10 [facility] Segmented neutrophils/100 WB C Manual cnt (Bld)on 10-16-2023 Segmented neutrophils/100 WBC (Bld) 76.0 % High 43.0-75.0 [facility] Serum or plasma albumin/glob ulin mass ratioon 10-16-2023 Albumin/Globulin [Mass ratio] 0.8 {ratio} [facility] Serum or plasma anion gap de terminationon 10-16-2023 Anion gap [Moles/Vol] 6.8 mmol/L [facility] Basophils Auto (Bld) [#/Vol] on 10-15-2023 Basophils (Bld) [#/Vol] 0.0 10 3/uL 0.0-0.1 [facility] Basophils/100 WBC Auto (Bld) on 10-15-2023 Basophils/100 WBC (Bld) 0.0 % Low 0.2-2.0 [facility] Cholesterol in LDL Calc [Mas s/Vol]on 10-15-2023 Cholesterol in LDL [Mass/Vol] 39.0 mg/dL [facility] Comment on above: <100 mg/dl [id number] 0-129 mg/dl NEAR OR ABOVE [id number] mg/dl BORDERLINE [id number] mg/dl HIGH>190 mg/dl VERY HIGH Cholesterol in VLDL Calc [Ma ss/Vol]on 10-15-2023 Cholesterol in VLDL [Mass/Vol] 11.2 mg/dL [facility] Eosinophils/100 WBC Auto (Bl d)on 10-15-2023 Eosinophils/100 WBC (Bld) 0.0 % Low 0.9-7.0 [facility] Erythrocyte distribution wid th Auto (RBC) [Ratio]on 10-15-2023 Erythrocyte distribution width (RBC) [Ratio] 12.4 % 11.0-15.0 [facility] Estimated glomerular filtrat ion rate (GFR) non- Americanon 10-15-2023 GFR/1.73 sq M.predicted among non-blacks MDRD (S/P/Bld) [Vol rate/Area] mL/min/{1.73_m2} >=60 [facility] Globulin Calc (S) [Mass/Vol] on 10-15-2023 Globulin (S) [Mass/Vol] 3.5 g/dL [facility] Hematocrit Auto (Bld) [Volum e fraction]on 10-15-2023 Hematocrit (Bld) [Volume fraction] 28.8 % Low 42.0-54.0 [facility] Hemoglobin [Mass/volume] in Bloodon 10-15-2023 Hemoglobin (Bld) [Mass/Vol] 9.6 g/dL Low 14.0-18.0 [facility] Laboratory - Chemistry and C hemistry - challengeon 10-15-2023 Albumin [Mass/Vol] 2.9 g/dL Low 3.4-5.0 [facility] ALP [Catalytic activity/Vol] 100 U/L 46-116 [facility] ALT [Catalytic activity/Vol] 50 U/L 16-63 [facility] AST [Catalytic activity/Vol] 27 U/L 15-37 [facility] Bilirubin [Mass/Vol] 0.8 mg/dL 0.2-1.0 [facility] Calcium [Mass/Vol] 8.7 mg/dL 8.5-10.1 [facility] Chloride [Moles/Vol] 99 mmol/L 98-107 [facility] Cholesterol [Mass/Vol] 89 mg/dL <=200 [facility] Cholesterol in HDL [Mass/Vol] 39 mg/dL Low 40-60 [facility] Comment on above: > or =60 mg/dl - LOW CARDIOVASCULAR RISK<40 mg/dl - HIGH CARDIOVASCULAR RISK CO2 [Moles/Vol] 26.8 mmol/L 21.0-32.0 [facility] Creatinine [Mass/Vol] 0.83 mg/dL 0.70-1.30 [facility] GFR/1.73 sq M.predicted MDRD (S/P/Bld) [Vol rate/Area] mL/min/{1.73_m2} >=60 [facility] Glucose [Mass/Vol] 137 mg/dL High 74-106 [facility] Magnesium [Mass/Vol] 1.6 mg/dL Low 1.8-2.4 [facility] Potassium [Moles/Vol] 3.9 mmol/L 3.5-5.1 [facility] Protein [Mass/Vol] 6.4 g/dL 6.4-8.2 [facility] Sodium [Moles/Vol] 134 mmol/L Low 136-145 [facility] Triglyceride [Mass/Vol] 56 mg/dL <=150 [facility] TSH Qn 0.543 m[IU]/L 0.358-3.74 0 [facility] Urea nitrogen [Mass/Vol] 20.0 mg/dL High 7.0-18.0 [facility] Urea nitrogen/Creatinine [Mass ratio] 24.1 mg/mg [facility] Laboratory - Hematology and Cell countson 10-15-2023 Immature granulocytes/100 WBC (Bld) 0.4 % 0.0-0.5 [facility] Leukocytes [#/volume] correc shyann for nucleated erythrocytes in Blood by Automated counon 10-15-2023 WBC corrected for nucl RBC Auto (Bld) [#/Vol] 8.2 10 3/uL 4.0-11.0 [facility] Lymphocytes Auto (Bld) [#/Vo l]on 10-15-2023 Lymphocytes (Bld) [#/Vol] 0.8 10 3/uL Low 1.2-3.8 [facility] Lymphocytes/100 WBC Auto (Bl d)on 10-15-2023 Lymphocytes/100 WBC (Bld) 9.2 % Low 20.5-60.0 [facility] MCH Auto (RBC) [Entitic mass ]on 10-15-2023 MCH (RBC) [Entitic mass] 30.3 pg 25.9-34.0 [facility] MCHC Auto (RBC) [Mass/Vol]on 10-15-2023 MCHC (RBC) [Mass/Vol] 33.3 g/dL 29.9-35.2 [facility] MCV Auto (RBC) [Entitic vol] on 10-15-2023 MCV (RBC) [Entitic vol] 90.9 fL 80.0-94.0 [facility] Monocytes Auto (Bld) [#/Vol] on 10-15-2023 Monocytes (Bld) [#/Vol] 0.7 10 3/uL 0.3-0.8 [facility] Monocytes/100 WBC Auto (Bld) on 10-15-2023 Monocytes/100 WBC (Bld) 9.0 % 1.7-12.0 [facility] Neutrophils Auto (Bld) [#/Vo l]on 10-15-2023 Neutrophils (Bld) [#/Vol] 6.7 10 3/uL High 1.4-6.5 [facility] Neutrophils/100 WBC Auto (Bl d)on 10-15-2023 Neutrophils/100 WBC (Bld) 81.4 % High 43.0-75.0 [facility] No Panel Informationon 10-14 Troponin I High Sensitivity 214.0 pg/mL High 4.0-76.1 [facility] Comment on above: RESULTS CALLED TO Josue AGEE)@BY Adalgisa Doherty MLT at [id number]-OFF POINTS HAVE BEEN ESTABLISHED BASED [...] Eosinophils # (Auto) 0.0 10 3/uL 0.0-0.7 [facility] Immature Granulocyte # (Auto) 0.03 10 3/uL 0.00-0.03 [facility] Platelet mean volume Auto (B ld) [Entitic vol]on 10-15-2023 Platelet mean volume (Bld) [Entitic vol] 10.1 fL 9.5-13.5 [facility] Platelets Auto (Bld) [#/Vol] on 10-15-2023 Platelets (Bld) [#/Vol] 152 10 3/uL 150-450 [facility] RBC Auto (Bld) [#/Vol]on RBC (Bld) [#/Vol] 3.17 10 6/uL Low 4.70-6.10 [facility] Serum or plasma albumin/glob ulin mass ratioon 10-15-2023 Albumin/Globulin [Mass ratio] 0.8 {ratio} [facility] Serum or plasma anion gap de terminationon 10-15-2023 Anion gap [Moles/Vol] 12.1 mmol/L Fi relaFormerly [facility], 1928–1983 Serum or plasma total choles terol/high density lipoprotein (HDL) cholesterol mass lalo 10-15-2023 Cholesterol.total/Chol esterol in HDL [Mass ratio] 2.3 {ratio} [facility] Comment on above: 3.3 - 4.4 LOW [...] will take him to the E.R. in [place]. 1:48 pm - pt's called back to let us know that she took pt to [place] E[facility] and he was dx'd with atrial [...] a time. Dr. Bryant was updated. Normal [facility] Activated partial thrombopla stin time (aPTT) in platelet poor plasma by coagulation aon 10-14-2023 aPTT Coag (PPP) [Time] 30.8 s 22.3-36.2 [facility] Basophils Auto (Bld) [#/Vol] on 10-14-2023 Basophils (Bld) [#/Vol] 0.0 10 3/uL 0.0-0.1 [facility] Basophils/100 WBC Auto (Bld) on 10-14-2023 Basophils/100 WBC (Bld) 0.1 % Low 0.2-2.0 [facility] Eosinophils/100 WBC Auto (Bl d)on 10-14-2023 Eosinophils/100 WBC (Bld) 0.1 % Low 0.9-7.0 [facility] Erythrocyte distribution wid th Auto (RBC) [Ratio]on 10-14-2023 Erythrocyte distribution width (RBC) [Ratio] 12.2 % 11.0-15.0 [facility] Estimated glomerular filtrat ion rate (GFR) non- Americanon 10-14-2023 GFR/1.73 sq M.predicted among non-blacks MDRD (S/P/Bld) [Vol rate/Area] mL/min/{1.73_m2} >=60 [facility] Hematocrit Auto (Bld) [Volum e fraction]on 10-14-2023 Hematocrit (Bld) [Volume fraction] 31.6 % Low 42.0-54.0 [facility] Hemoglobin [Mass/volume] in Bloodon 10-14-2023 Hemoglobin (Bld) [Mass/Vol] 10.6 g/dL Low 14.0-18.0 [facility] INR in Platelet poor plasma by Coagulation assayon 10-14-2023 INR Coag (PPP) [Relative time] 1.11 {INR} [facility] Comment on above: DESIRED INR:2.0-3.0 CONDITIONS NOT LISTED BELOW2.5-3.5 FOR PROSTHETIC HEART VALVE REPLACEMENT2.5-3.5 RECURRENT THROMBOSIS Laboratory - Chemistry and C hemistry - challengeon 10-14-2023 Natriuretic peptide B (Bld) [Mass/Vol] 9227.0 pg/mL High <=1800.0 [facility] Comment on above: RESULTS CALLED TO KENDELL LOMBARDI/SHAREE IN ICU Calcium [Mass/Vol] 8.6 mg/dL 8.5-10.1 [facility] Chloride [Moles/Vol] 95 mmol/L Low 98-107 [facility] CO2 [Moles/Vol] 24.6 mmol/L 21.0-32.0 [facility] Creatinine [Mass/Vol] 0.97 mg/dL 0.70-1.30 [facility] GFR/1.73 sq M.predicted MDRD (S/P/Bld) [Vol rate/Area] mL/min/{1.73_m2} >=60 [facility] Glucose [Mass/Vol] 176 mg/dL High 74-106 [facility] Potassium [Moles/Vol] 4.1 mmol/L 3.5-5.1 [facility] Sodium [Moles/Vol] 130 mmol/L Low 136-145 [facility] Urea nitrogen [Mass/Vol] 20.0 mg/dL High 7.0-18.0 [facility] Urea nitrogen/Creatinine [Mass ratio] 20.6 mg/mg [facility] Laboratory - Hematology and Cell countson 10-14-2023 Immature granulocytes/100 WBC (Bld) 0.4 % 0.0-0.5 [facility] Leukocytes [#/volume] correc shyann for nucleated erythrocytes in Blood by Automated counon 10-14-2023 WBC corrected for nucl RBC Auto (Bld) [#/Vol] 15.7 10 3/uL High 4.0-11.0 [facility] Lymphocytes Auto (Bld) [#/Vo l]on 10-14-2023 Lymphocytes (Bld) [#/Vol] 1.4 10 3/uL 1.2-3.8 [facility] Lymphocytes/100 WBC Auto (Bl d)on 10-14-2023 Lymphocytes/100 WBC (Bld) 9.1 % Low 20.5-60.0 [facility] MCH Auto (RBC) [Entitic mass ]on 10-14-2023 MCH (RBC) [Entitic mass] 30.8 pg 25.9-34.0 [facility] MCHC Auto (RBC) [Mass/Vol]on 10-14-2023 MCHC (RBC) [Mass/Vol] 33.5 g/dL 29.9-35.2 [facility] MCV Auto (RBC) [Entitic vol] on 10-14-2023 MCV (RBC) [Entitic vol] 91.9 fL 80.0-94.0 [facility] Monocytes Auto (Bld) [#/Vol] on 10-14-2023 Monocytes (Bld) [#/Vol] 1.5 10 3/uL High 0.3-0.8 [facility] Monocytes/100 WBC Auto (Bld) on 10-14-2023 Monocytes/100 WBC (Bld) 9.6 % 1.7-12.0 [facility] Neutrophils Auto (Bld) [#/Vo l]on 10-14-2023 Neutrophils (Bld) [#/Vol] 12.7 10 3/uL High 1.4-6.5 [facility] Neutrophils/100 WBC Auto (Bl d)on 10-14-2023 Neutrophils/100 WBC (Bld) 80.7 % High 43.0-75.0 [facility] No Panel Informationon 10-13 Troponin I High Sensitivity 279.3 pg/mL High 4.0-76.1 [facility] Comment on above: RESULTS CALLED TO KENDELL [...] Eosinophils # (Auto) 0.0 10 3/uL 0.0-0.7 [facility] Immature Granulocyte # (Auto) 0.07 10 3/uL High 0.00-0.03 [facility] Platelet mean volume Auto (B ld) [Entitic vol]on 10-14-2023 Platelet mean volume (Bld) [Entitic vol] 10.1 fL 9.5-13.5 [facility] Platelets Auto (Bld) [#/Vol] on 10-14-2023 Platelets (Bld) [#/Vol] 191 10 3/uL 150-450 [facility] Prothrombin time (PT)on PT Coag (PPP) [Time] 11.6 s 9.0-11.6 [facility] RBC Auto (Bld) [#/Vol]on RBC (Bld) [#/Vol] 3.44 10 6/uL Low 4.70-6.10 [facility] Serum or plasma anion gap de terminationon 10-14-2023 Anion gap [Moles/Vol] 14.5 mmol/L [facility] Telephoneon 10-14-[phone] 1940 M Date Provider Department Center 10/14/2023 NICOLE PEOPLES ONC DCC Family History Problem Relation Age of Onset Heart disease Mother No Known Problems Father No Known Problems Sister Family Status - Relation Status Age at Mother Father Sister Alive Reason for Visit and Comments: Shortness of Breath [[id number]] Normal [facility] 30on 10-13-2023 30 Problem: Neurosensor y [...] lifting and knowing s/s for infection. Normal [facility] 30 Daily Case Managemen t Update Multidisciplinary rounds have been completed. Barriers to Discharge et per Progress Note/s: POD#1 CLD. From Home with plans to return home pending medical clearance. Diet: Dietary Orders (From admission, onward) Start Ordered 10/13/23 0751 Special Kitchen Request Once Comments: 1 soft [...] PT Recommendations: OT Recommendations: New Consults: Normal [facility] CBCon 10-13-2023 Erythrocyte distribution width (RBC) [Ratio] 12.6 % Normal 11.5-15.0 [facility] Comment on above: Performed By: #### L [id number] #### [facility] (BEAKER) [address] [place] [address] ERYTHROCYTE MEAN CORPUSCULAR HEMOGLOBIN CONCENTRATION (G/DL) BY AUTOMATED 33.0 g/dL Normal 32.0-35.0 [facility] Comment on above: Performed By: #### L [id number] #### [facility] (BEAKER) [address] [place] [address] Hematocrit (Bld) [Volume fraction] 29.4 % Low 39.0-55.0 [facility] Comment on above: Performed By: #### L [id number] #### [facility] (BEAKER) [address] [place] [address] Hemoglobin (Bld) [Mass/Vol] 9.7 g/dL Low 13.0-17.0 [facility] Comment on above: Performed By: #### L [id number] #### [facility] (BEAKER) [address] [place] [address] MCH (RBC) [Entitic mass] 30.9 pg Normal 27.0-33.0 [facility] Comment on above: Performed By: #### L [id number] #### [facility] ([facility]) [address] [place] [address] MCV (RBC) [Entitic vol] 93.6 fL Normal 82.0-98.0 [facility] Comment on above: Performed By: #### L [id number] #### [facility] ([facility]) [address] [place] [address] PLATELETS (10*3/UL) IN BLOOD AUTOMATED COUNT 141 10*3/uL Low 150-400 [facility] Comment on above: Performed By: #### L [id number] #### [facility] ([facility]) [address] [place] [address] RBC (Bld) [#/Vol] 3.14 10*6/uL Low 4.20-5.70 [facility] Comment on above: Performed By: #### L [id number] #### [facility] ([facility]) [address] [place] [address] WBC (Bld) [#/Vol] 14.01 10*3/uL High 4.00-10.60 [facility] Comment on above: Performed By: #### L [id number] #### [facility] ([facility]) [address] [place] [address] COMPREHENSIVE METABOLIC PANE Santo 10-13-2023 Albumin [Mass/Vol] 3.4 g/dL Low 3.5-5.7 [facility] Comment on above: Performed By: #### L [id number] ####[facility] ([facility])[address] [place] [address] ALP [Catalytic activity/Vol] 89 U/L Normal 34-104 [facility] Comment on above: Performed By: #### L [id number] ####[facility] ([facility])[address] [place] [address] ALT [Catalytic activity/Vol] 52 U/L Normal 7-52 [facility] Comment on above: Performed By: #### L [id number] ####[facility] (BEAKER)[address] [place] [address] Anion gap [Moles/Vol] 12 mmol/L Normal 7-20 [facility] Comment on above: Performed By: #### L [id number] ####[facility] (BEAKER)[address] [place] [address] AST [Catalytic activity/Vol] 60 U/L High 13-39 [facility] Comment on above: Performed By: #### L [id number] ####[facility] (BEAKER)[address] [place] [address] Bilirubin [Mass/Vol] 0.8 mg/dL Normal 0.3-1.0 [facility] Comment on above: Performed By: #### L [id number] ####[facility] (BEAKER)[address] [place] [address] Calcium [Mass/Vol] 8.3 mg/dL Low 8.6-10.3 [facility] Comment on above: Performed By: #### L [id number] ####[facility] (BEAKER)[address] [place] [address] Chloride [Moles/Vol] 104 mmol/L Normal 98-107 [facility] Comment on above: Performed By: #### L [id number] ####[facility] (BEAKER)[address] [place] [address] CO2 [Moles/Vol] 22 mmol/L Normal 21-31 [facility] Comment on above: Performed By: #### L [id number] ####[facility] (BEAKER)[address] [place] [address] Creatinine [Mass/Vol] 0.74 mg/dL Normal 0.70-1.30 [facility] Comment on above: Performed By: #### L [id number] ####[facility] (BEAKER)[address] [place] [address] GLOMERULAR FILTRATION RATE ML/MIN/1.73 SQ M.PREDICTED 91.0 mL/min/1.73m*2 Normal >60.0 [facility] Comment on above: Result Comment: The [facility]???s estimated glomerular filtration rate (eGFR) will [...] of individuals. Performed By: #### L [id number] ####[facility] ([facility])[address] [place] [address] Glucose [Mass/Vol] 116 mg/dL High 70-100 [facility] Comment on above: Performed By: #### L [id number] ####[facility] ([facility])[address] [place] [address] Potassium [Moles/Vol] 4.4 mmol/L Normal 3.5-5.1 [facility] Comment on above: Performed By: #### L [id number] ####[facility] ([facility])[address] [place] [address] Protein [Mass/Vol] 5.9 g/dL Low 6.0-8.3 [facility] Comment on above: Performed By: #### L [id number] ####[facility] ([facility])[address] [place] [address] Sodium [Moles/Vol] 134 mmol/L Low 136-145 [facility] Comment on above: Performed By: #### L [id number] ####[facility] ([facility])[address] [place] [address] Urea nitrogen [Mass/Vol] 17 mg/dL Normal 7-25 [facility] Comment on above: Performed By: #### L [id number] ####[facility] ([facility])[address] [facility] [place] [address] UREA NITROGEN/CREATININE (MASS RATIO) IN SER/PLAS 23.0 Normal [facility] Comment on above: Performed By: #### L [id number] ####[facility] (MERCYAKER)[address] [place] [address] DSon 10-13-2023 DS Admission Admitted 10/12/2023 for [...] Your Medications These medications were sent to [facility]/pharmacy #[id number] [place], [place] - [address] [facility] [address] [address] acetaminophen 500 mg tablet aspirin 81 mg [...] is performed under the ED CLIA certificate #[id number]. ARTERIAL BLOOD GAS WITH CO-OXIMETRY - Abnormal [...] HCO3 POC (more content not included)... Normal [facility] MAGNESIUMon 10-13-2023 Magnesium [Mass/Vol] 1.5 mg/dL Low 1.9-2.7 [facility] Comment on above: Performed By: #### L [id number] ####[facility] (BEAKER)[address] [place] [address] PHOSPHORUSon 10-13-2023 Magnesium [Mass/Vol] 4.2 mg/dL Normal 2.5-5.0 [facility] Comment on above: Performed By: #### L [id number] ####[facility] (BEAKER)[address] [place] [address] PROTIME-INRon 10-13-2023 INR IN PPP BY COAGULATION ASSAY 1.17 High 0.90-1.10 [facility] Comment on above: Result Comment: ACCC [...] 1995;[id number]. Performed By: #### L [id number] #### [facility] (BEAKER) [address] [place] [address] PROTHROMBIN TIME (PT) IN PPP BY COAGULATION ASSAY 14.8 Seconds Normal 12.3-14.8 [facility] Comment on above: Performed By: #### L [id number] #### [facility] (BEAKER) [address] [place] [address] 30on 10-12-2023 30 The patient is Moder [...] these barriers include post-op monitoring . Normal [facility] 30 Daily Case Managemen t Update [...] appropriate for patient?: Yes New Consults: Normal [facility] APTTon 10-12-2023 ACTIVATED PARTIAL THROMBOPLASTIN TIME IN PPP BY COAGULATION ASSAY 32.1 Seconds Normal 25.0-35.0 [facility] Comment on above: Order Comment: In PA CU Result Comment: Clin ical significance of the APTT is questionable in the presence of heparin. Performed By: #### L [id number] #### [facility] ([facility]) [address] [place] [address] ARTERIAL BLOOD GAS WITH CO-O XIMETRYon 10-12-2023 Base excess Calc (Bld) [Moles/Vol] -4.3000 mmol/L Low -2.0-3.0 [facility] Comment on above: Order Comment: In PA CU Performed By: #### L [id number] #### [facility] ([facility]) [address] [place] [address] CARBOXYHEMOGLOBIN/HEMO GLOBIN TOTAL % IN BLOOD 1.2 % Normal 0.0-3.0 [facility] Comment on above: Order Comment: In PA CU Performed By: #### L [id number] #### [facility] (BEAKER) [address] [place] [address] CO2 (Bld) [Partial pressure] 42 mm[Hg] Normal 35-48 [facility] Comment on above: Order Comment: In PA CU Performed By: #### L [id number] #### [facility] ([facility]) [address] [place] [address] DEOXYGENATED HEMOGLOBIN IN BLOOD 0.3 % Low 1-5 [facility] Comment on above: Order Comment: In PA CU Performed By: #### L [id number] #### [facility] (BEAKER) [address] [place] [address] HCO3 (Bld) [Moles/Vol] 21.6 mmol/L Normal 21.0-28.0 [facility] Comment on above: Order Comment: In PA CU Performed By: #### L [id number] #### [facility] (BEAKER) [address] [place] [address] Hemoglobin (Bld) [Mass/Vol] 9.5 g/dL Low 11.7-17.4 [facility] Comment on above: Order Comment: In PA CU Performed By: #### L [id number] #### [facility] ([facility]) [address] [place] [address] LPM 4 Normal [facility] Comment on above: Order Comment: In PA CU Performed By: #### L [id number] #### [facility] (AKER) [address] [place] [address] METHEMOGLOBIN/100 IN BLOOD 0.0 % Normal 0.0-1.5 [facility] Comment on above: Order Comment: In PA CU Performed By: #### L [id number] #### [facility] ([facility]) [address] [place] [address] Oxygen (Bld) [Partial pressure] 137 mm[Hg] High 83-100 [facility] Comment on above: Order Comment: In PA CU Performed By: #### L [id number] #### [facility] ([facility]) [address] [place] [address] OXYGEN SATURATION (%) IN ARTERIAL BLOOD 99.7 % High 94.0-98.0 [facility] Comment on above: Order Comment: In PA CU Performed By: #### L [id number] #### [facility] ([facility]) [address] [place] [address] OXYGENATED HEMOGLOBIN IN BLOOD 98.4 % High 90.0-95.0 [facility] Comment on above: Order Comment: In PA CU Performed By: #### L [id number] #### [facility] [address] [place] [address] pH (Bld) 7.32 [pH] Low 7.35-7.45 [facility] Comment on above: Order Comment: In PA CU Performed By: #### L [id number] #### [facility] (BEAKER) [address] [place] [address] SOURCE OF OXYGEN Nasal cannula Normal [facility] Comment on above: Order Comment: In PA CU Performed By: #### L [id number] #### [facility] ([facility] [address] [place] [address] CBCon 10-12-2023 Erythrocyte distribution width (RBC) [Ratio] 12.5 % Normal 11.5-15.0 [facility] Comment on above: Order Comment: In PA CU Performed By: #### L [id number] #### [facility] ([facility]) [address] [place] [address] ERYTHROCYTE MEAN CORPUSCULAR HEMOGLOBIN CONCENTRATION (G/DL) BY AUTOMATED 32.4 g/dL Normal 32.0-35.0 [facility] Comment on above: Order Comment: In PA CU Performed By: #### L [id number] #### [facility] ([facility]) [address] [place] [address] Hematocrit (Bld) [Volume fraction] 28.4 % Low 39.0-55.0 [facility] Comment on above: Order Comment: In PA CU Performed By: #### L [id number] #### [facility] ([facility]) [address] [place] [address] Hemoglobin (Bld) [Mass/Vol] 9.2 g/dL Low 13.0-17.0 [facility] Comment on above: Order Comment: In PA CU Performed By: #### L [id number] #### [facility] [address] [place] [address] MCH (RBC) [Entitic mass] 30.6 pg Normal 27.0-33.0 [facility] Comment on above: Order Comment: In PA CU Performed By: #### L [id number] #### [facility] ([facility] [address] [place] [address] MCV (RBC) [Entitic vol] 94.4 fL Normal 82.0-98.0 [facility] Comment on above: Order Comment: In PA CU Performed By: #### L [id number] #### [facility] (BEAKER) [address] [place] [address] PLATELETS (10*3/UL) IN BLOOD AUTOMATED COUNT 130 10*3/uL Low 150-400 [facility] Comment on above: Order Comment: In PA CU Performed By: #### L [id number] #### [facility] ([facility] [address] [place] [address] RBC (Bld) [#/Vol] 3.01 10*6/uL Low 4.20-5.70 [facility] Comment on above: Order Comment: In PA CU Performed By: #### L [id number] #### [facility] ([facility] [address] [place] [address] WBC (Bld) [#/Vol] 10.46 10*3/uL Normal 4.00-10.60 [facility] Comment on above: Order Comment: In PA CU Performed By: #### L [id number] #### [facility] ([facility]) [address] [place] [address] COMPREHENSIVE METABOLIC PANE Santo 10-12-2023 Albumin [Mass/Vol] 3.3 g/dL Low 3.5-5.7 [facility] Comment on above: Order Comment: In PA CU Performed By: #### L [id number] ####[facility] ([facility] [place] [address] ALP [Catalytic activity/Vol] 84 U/L Normal 34-104 [facility] Comment on above: Order Comment: In PA CU Performed By: #### L [id number] ####[facility] (BEAKER)[address] [place] [address] ALT [Catalytic activity/Vol] 53 U/L High 7-52 [facility] Comment on above: Order Comment: In PA CU Performed By: #### L [id number] ####[facility] (BEAKER)[address] [place] [address] Anion gap [Moles/Vol] 11 mmol/L Normal 7-20 [facility] Comment on above: Order Comment: In PA CU Performed By: #### L [id number] ####[facility] (BEAKER)[address] [place] [address] AST [Catalytic activity/Vol] 63 U/L High 13-39 [facility] Comment on above: Order Comment: In PA CU Performed By: #### L [id number] ####[facility] (BEAKER)[address] [place] [address] Bilirubin [Mass/Vol] 0.9 mg/dL Normal 0.3-1.0 [facility] Comment on above: Order Comment: In PA CU Performed By: #### L [id number] ####[facility] (BEAKER)[address] [place] [address] Calcium [Mass/Vol] 7.9 mg/dL Low 8.6-10.3 [facility] Comment on above: Order Comment: In PA CU Performed By: #### L [id number] ####[facility] (BEAKER)[address] [place] [address] Chloride [Moles/Vol] 107 mmol/L Normal 98-107 [facility] Comment on above: Order Comment: In PA CU Performed By: #### L [id number] ####[facility] (BEAKER)[address] [place] [address] CO2 [Moles/Vol] 22 mmol/L Normal 21-31 [facility] Comment on above: Order Comment: In PA CU Performed By: #### L [id number] ####[facility] (BEAKER)[address] [place] [address] Creatinine [Mass/Vol] 0.73 mg/dL Normal 0.70-1.30 [facility] Comment on above: Order Comment: In PA CU Performed By: #### L [id number] ####[facility] (BEAKER)[address] [place] [address] GLOMERULAR FILTRATION RATE ML/MIN/1.73 SQ M.PREDICTED 91.4 mL/min/1.73m*2 Normal >60.0 [facility] Comment on above: Order Comment: In PA CU Result Comment: The [facility]???s estimated glomerular filtration rate (eGFR) will [...] of individuals. Performed By: #### L [id number] ####[facility] ([facility])[address] [place] [address] Glucose [Mass/Vol] 160 mg/dL High 70-100 [facility] Comment on above: Order Comment: In PA CU Performed By: #### L [id number] ####[facility] ([facility])[address] [place] [address] Potassium [Moles/Vol] 4.4 mmol/L Normal 3.5-5.1 [facility] Comment on above: Order Comment: In PA CU Performed By: #### L [id number] ####[facility] (BEAKER)[address] [place] [address] Protein [Mass/Vol] 5.7 g/dL Low 6.0-8.3 [facility] Comment on above: Order Comment: In PA CU Performed By: #### L [id number] ####[facility] [place] [address] Sodium [Moles/Vol] 136 mmol/L Normal 136-145 [facility] Comment on above: Order Comment: In PA CU Performed By: #### L [id number] ####[facility] (BEAKER)[address] [place] [address] Urea nitrogen [Mass/Vol] 18 mg/dL Normal 7-25 [facility] Comment on above: Order Comment: In PA CU Performed By: #### L [id number] ####[facility] (BEAKER)[address] [place] [address] UREA NITROGEN/CREATININE (MASS RATIO) IN SER/PLAS 24.7 Normal [facility] Comment on above: Order Comment: In PA CU Performed By: #### L [id number] ####[facility] (BEAKER)[address] [place] [address] HISTOLOGY - TISSUE EXAMon LAB AP CASE REPORT Normal [facility] Comment on above: Order Comment: 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] Result Comment: Surg ical Pathology Case: [id number] Authorizing Provider: Amber Bryant MD Collected: 10/12/2023 1204 Ordering Location: [facility] Main Operating Room Received: 10/12/2023 1233 Pathologist: Marya Hudson MD Intraop: Luana Rivas MD Specimens: A) - Common Bile Duct, CYSTIC DUCT MARGIN B) - Gallbladder, GALLBLADDER AND PORTION OF SEGMENT 4/5 Performed By: #### L [id number] ####[facility] ([facility] [place] [address] LAB AP CLINICAL INFORMATION Normal [facility] Comment on above: Order Comment: 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 Resulted 12:53 PM 10/12/23 Gallbladder, cystic duct margin, biopsy: - No malignancy identified Intraoperative Consultation by: Luana Rivas MD B. Gallbladder. Resulted 2:58 pm 10/12/23 Gallbladder, cholecystectomy: - No malignancy identified Intraoperative Consultation by: Luana Rivas MD Performed By: #### L [id number] ####[facility] ([facility])[address] [place] [address] LAB AP MICROSCOPIC DESCRIPTION Microscopic examination performed. 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 Performed By: #### L [id number] ####[facility] ([facility])[address] [place] [address] HPon 10-12-2023 HP H&P reviewed. The pa tient was examined and there are no changes to the H&P. 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] Post-op Diagnosis * 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] Procedures Robot-Assisted Cholecystectomy with [address] - [place] LAPAROSCOPY SURG CHOLECYSTECTOMY Intraoperative Ultrasound and 96215 - [place] UNLISTED LAPAROSCOPIC PROCEDURE LIVER PArtial Liver Resection of segement 06/10 70638 - [place] UNLISTED LAPAROSCOPIC PROCEDURE LIVER Surgeons Primary: Amber [...] Amber Bryant MD 10/12/23 1204 Yes STAT [id number] Description: CYSTIC DUCT MARGIN B Gallbladder Tissue HISTOLOGY - TISSUE EXAM Amber Bryant MD 10/12/23 1403 Yes STAT [id number] Staff: Technical Support Associate: Woody Massey RN; Lukas Chacon RN; Felicity Judge RN Relief Scrub: Rachel [...] in the left lower quadrant as an banking assistant port. Following this the 5 mm [...] The ultrasound was brought in through the banking assistant port. Intraoperative ultrasonography of the gallbladder was undertaken examining the entire gallbladder in both its longitudinal and transverse (more content not included)... Normal [facility] PHOSPHORUSon 10-12-2023 Magnesium [Mass/Vol] 3.5 mg/dL Normal 2.5-5.0 [facility] Comment on above: Order Comment: In BEHZAD CU Performed By: #### L [id number] #### [facility] ([facility]) [address] [place] [address] POCT GLUCOSE METER UNSOLICIT ED RESULTSon 10-12-2023 Glucose [Mass/Vol] 115 mg/dL High 70-105 [facility] Comment on above: Order Comment: Waive d Testing in the ED is performed under the ED CLIA certificate #[id number]. Result Comment: spin zon Performed By: #### L [id number] ####[facility] (BE[facility]ER)[address] [place] [address] POCT PERFUSION PANEL UNSOLIC ITED RESULTSon 10-12-2023 CO2 [Moles/Vol] 21.0 mmol/L Normal 21.0-29.0 [facility] Comment on above: Performed By: #### L [id number] ####[facility] ([facility])[address] [place] [address] Glucose [Mass/Vol] 132 mg/dL High 70-105 [facility] Comment on above: Performed By: #### L [id number] ####[facility] ([facility]ER)[address] [place] [address] HCO3 (Bld) [Moles/Vol] 19.3 mmol/L Low 23.0-28.0 [facility] Comment on above: Performed By: #### L [id number] ####[facility] ([facility])[address] [place] [address] Hematocrit (Bld) [Volume fraction] 24 % Low 38-51 [facility] Comment on above: Performed By: #### L [id number] ####[facility] (BE[facility]ER)[address] [place] [address] Hemoglobin (Bld) [Mass/Vol] 8.2 g/dL Low 12.0-17.0 [facility] Comment on above: Performed By: #### L [id number] ####[facility] ([facility]ER)[address] [place] [address] POCT BASE EXCESS -7.0 mmol/L Low -2.0-3.0 [facility] Comment on above: Performed By: #### L [id number] ####[facility] (BEAKER)[address] [place] [address] POCT IONIZED CALCIUM 1.11 mmol/L Low 1.12-1.32 [facility] Comment on above: Performed By: #### L [id number] ####[facility] ([facility])[address] [place] [address] POCT PCO2 43.3 mmHg Normal 41.0-51.0 [facility] Comment on above: Performed By: #### L [id number] ####[facility] ([facility])[address] [place] [address] POCT PH 7.26 Low 7.31-7.41 [facility] Comment on above: Performed By: #### L [id number] ####[facility] ([facility])[address] [place] [address] POCT PO2 224 mmHg High 80-105 [facility] Comment on above: Performed By: #### L [id number] ####[facility] ([facility])[address] [place], [place] [address] POCT SO2 100 % High 95-98 [facility] Comment on above: Performed By: #### L [id number] ####[facility] ([facility])[address] [place], [place] [address] Potassium [Moles/Vol] 4.0 mmol/L Normal 3.5-4.9 [facility] Comment on above: Performed By: #### L [id number] ####[facility] ([facility])[address] [place], [place] [address] Sodium [Moles/Vol] 140 mmol/L Normal 138.0-146 . 0 [facility] Comment on above: Performed By: #### L [id number] ####[facility] ([facility])[address] [place], [place] [address] CO2 [Moles/Vol] 21.0 mmol/L Normal 21.0-29.0 [facility] Comment on above: Performed By: #### L [id number] ####[facility] ([facility])[address] [place] [address] Glucose [Mass/Vol] 146 mg/dL High 70-105 [facility] Comment on above: Performed By: #### L [id number] ####[facility] (BE[facility]ER)[address] [place] [address] HCO3 (Bld) [Moles/Vol] 19.6 mmol/L Low 23.0-28.0 [facility] Comment on above: Performed By: #### L [id number] ####[facility] ([facility])[address] [place] [address] Hematocrit (Bld) [Volume fraction] 29 % Low 38-51 [facility] Comment on above: Performed By: #### L [id number] ####[facility] (BE[facility])[address] [place] [address] Hemoglobin (Bld) [Mass/Vol] 9.9 g/dL Low 12.0-17.0 [facility] Comment on above: Performed By: #### L [id number] ####[facility] ([facility])[address] [place] [address] POCT BASE EXCESS -5.0 mmol/L Low -2.0-3.0 [facility] Comment on above: Performed By: #### L [id number] ####[facility] ([facility])[address] [place] [address] POCT IONIZED CALCIUM 1.12 mmol/L Normal 1.12-1.32 [facility] Comment on above: Performed By: #### L [id number] ####[facility] ([facility])[address] [place] [address] POCT PCO2 33.9 mmHg Low 41.0-51.0 [facility] Comment on above: Performed By: #### L [id number] ####[facility] ([facility])[address] [place] [address] POCT PH 7.37 Normal 7.31-7.41 [facility] Comment on above: Performed By: #### L [id number] ####[facility] ([facility]ER)[address] [place] [address] POCT PO2 230 mmHg High 80-105 [facility] Comment on above: Performed By: #### L [id number] ####[facility] ([facility])[address] [place] [address] POCT SO2 100 % High 95-98 [facility] Comment on above: Performed By: #### L [id number] ####[facility] ([facility])[address] [place] [address] Potassium [Moles/Vol] 4.2 mmol/L Normal 3.5-4.9 [facility] Comment on above: Performed By: #### L [id number] ####[facility] ([facility]ER)[address] [place] [address] Sodium [Moles/Vol] 136 mmol/L Low 138.0-146 . 0 [facility] Comment on above: Performed By: #### L [id number] ####[facility] ([facility]ER)[address] [place] [address] CO2 [Moles/Vol] 25.0 mmol/L Normal 21.0-29.0 [facility] Comment on above: Performed By: #### L [id number] ####[facility] ([facility]ER)[address] [place] [address] Glucose [Mass/Vol] 162 mg/dL High 70-105 [facility] Comment on above: Performed By: #### L [id number] ####[facility] ([facility]ER)[address] [place] [address] HCO3 (Bld) [Moles/Vol] 23.4 mmol/L Normal 23.0-28.0 [facility] Comment on above: Performed By: #### L [id number] ####[facility] ([facility]ER)[address] [place] [address] Hematocrit (Bld) [Volume fraction] 32 % Low 38-51 [facility] Comment on above: Performed By: #### L [id number] ####[facility] ([facility])[address] [place] [address] Hemoglobin (Bld) [Mass/Vol] 10.9 g/dL Low 12.0-17.0 [facility] Comment on above: Performed By: #### L [id number] ####[facility] ([facility])[address] [place] [address] POCT BASE EXCESS -2.0 mmol/L Normal -2.0-3.0 [facility] Comment on above: Performed By: #### L [id number] ####[facility] ([facility])[address] [address] POCT IONIZED CALCIUM 1.20 mmol/L Normal 1.12-1.32 [facility] Comment on above: Performed By: #### L [id number] ####[facility] ([facility])[address] [address] POCT PCO2 43.6 mmHg Normal 41.0-51.0 [facility] Comment on above: Performed By: #### L [id number] ####[facility] ([facility])[address] [address] POCT PH 7.34 Normal 7.31-7.41 [facility] Comment on above: Performed By: #### L [id number] ####[facility] ([facility])[address] [address] POCT PO2 225 mmHg High 80-105 [facility] Comment on above: Performed By: #### L [id number] ####[facility] ([facility])[address] [address] POCT SO2 100 % High 95-98 [facility] Comment on above: Performed By: #### L [id number] ####[facility] ([facility])[address] [place] [address] Potassium [Moles/Vol] 4.4 mmol/L Normal 3.5-4.9 [facility] Comment on above: Performed By: #### L [id number] ####[facility] ([employer])[address] [place] [address] Sodium [Moles/Vol] 133 mmol/L Low 138.0-146 . 0 [facility] Comment on above: Performed By: #### L [id number] ####[facility] ([employer])[address] [place] [address] PROTIME-INRon 10-12-2023 INR IN PPP BY COAGULATION ASSAY 1.19 High 0.90-1.10 [facility] Comment on above: Order Comment: In [...] CHEST 1995;108:[id number]. Performed By: #### L [id number] ####[facility] ([employer])[address] [place] [address] PROTHROMBIN TIME (PT) IN PPP BY COAGULATION ASSAY 15.0 Seconds High 12.3-14.8 [facility] Comment on above: Order Comment: In PA CU Performed By: #### L [id number] ####[facility] ([employer])[address] [place] [address] HPon 10-06-2023 SURGERY FOLLOWUP NOT E Amber [...] temperature so (more content not included)... Normal [facility] Office Visiton 10-06-2023 Follow-up visit [id number] [address] 1940 M Date Provider Department [place] 10/06/2023 [id number] BRYANT DCC ONC DCC Family History Problem Relation Age of Onset Heart disease Mother No Known Problems Father No Known Problems Sister Family Status - Relation Status Age at Mother Father Sister Alive Level of Service:75796 [place] OFFICE/OUTPATIENT ESTABLISHED LOW MDM 20 MIN Reason for Visit and Comments: Follow-up [170721] - Here for F/U of his gallbladder mass. Normal [facility] ANTI C3 DATon 09-17-2023 ANTI C3 ASHLEY Negative Normal [facility] Comment on above: Order Comment: 2 uni ts Performed By: #### L [id number] ####[facility], ANTI IGG DATon 09-17-2023 ANTI IGG ASHLEY Negative Normal [facility] Comment on above: Order Comment: In PA CU Performed By: #### L [id number] #### [facility] (BEAKER) [address] [place] [address] ANTIBODY IDENTIFICATIONon ANTIBODY IDENTIFICATION [facility] Normal [facility] Comment on above: Order Comment: In PA CU Performed By: #### L [id number] #### [facility] (BE[facility]ER) [address] [place] [address] Labon 09-17-[id number] 1940 M Date Provider Department Center 09/17/2023 2243-[facility] DCC LAB RESOURCE DCC DRAW DCC Family History Problem Relation Age of Onset Heart disease Mother No Known Problems Father No Known Problems Sister Family Status - Relation Status Age at Mother Father Sister Alive Normal [facility] TYPE AND SCREENon 09-17-2023 AB SCREEN Positive Normal [facility] Comment on above: Order Comment: 2 uni ts Performed By: #### L [id number] ####[facility], ABO group Nom (Bld) A Normal [facility] Comment on above: Order Comment: 2 uni ts Performed By: #### L [id number] ####[facility], RH TYPE IN BLOOD Positive Normal [facility] Comment on above: Order Comment: 2 uni ts Performed By: #### L [id number] ####[facility], Abstracton 09-14-2023 Abstract [id number] Clarice Baker minoo J 1940 M Date Provider Department Center 09/14/2023 [id number] ZUNIGA ONC XIAO Family History Problem Relation Age of Onset Heart disease Mother No Known Problems Father No Known Problems Sister Family Status - Relation Status Age at Mother Father Sister Alive Normal [facility] Abstracton 09-13-2023 Abstract [id number] Clarice Baker minoo J 1940 M Date Provider Department Center 09/13/2023 [id number] ZUNIGA ONC XIAO Family History Problem Relation Age of Onset Heart disease Mother No Known Problems Father No Known Problems Sister Family Status - Relation Status Age at Mother Father Sister Alive Normal [facility] ECH echo limited [facility] echo limited [facility] [place] [address] Echocardiogram Signed Patient: Chico Baker MR#: [id number] 284 : 1940 Acct:[id number] Age/Sex: 83 / M ADM Date: 08/31/23 Loc: Room: Type: [facility] Attending Dr: Sheri Christiansen MD Ordering Provider: Sheri Christiansen MD Date of Service: 08/31/23 [facility] limited: I35.0 - Nonrheumatic aortic [...] mmHg Transcribed By: SCV Performed At: 08/31/23 1454 Signed By: Judah Harrington MD 08/31/23 1723 Normal [facility] FPG ECG *CARDIOLOGY ONLY*on 08-19-2023 FPG ECG *CARDIOLOGY ONLY* [facility] [place] [address] Electrocardiograph Report Signed Patient: Chico Baker MR#: [id number] : 1940 Acct:[id number] Age/Sex: 83 / M ADM Date: 08/19/23 Loc: EKGCARDIO Room: Type: [facility] Attending Dr: Sheri Christiansen MD Ordering [...] rhythm Normal ECG Confirmed by Sheri Christiansen ([id number]) on 08/20/2023 12:14:54 AM Referred By: Electronically Signed By:Sheri Christiansen Transcribed By: MUS Signed By Sheri Christiansen MD 4 0014 Normal [facility] 29on 08-18-2023 29 Addended by: NICOLE MONTES on: 08/19/2023 11:25 AM Modules accepted: Orders Normal [facility] APTTon 08-18-2023 ACTIVATED PARTIAL THROMBOPLASTIN TIME IN PPP BY COAGULATION ASSAY 32.1 Seconds Normal 25.0-35.0 [facility] Comment on above: Result Comment: Clin ical significance of the APTT is questionable in the presence of heparin. Performed By: #### L [id number] #### [facility] (BEAKER) [address] [place] [address] CANCER ANTIGEN 19-9on 2023 CANCER AG 19-9 (U/ML) IN SER/PLAS <2 Normal <=35 [facility] Comment on above: Result Comment: INTE [...] or absence of malignant disease. Performed By: [employer] [address] [place] [address] Director Retirement: Mario Mckeon MD, PhD CLIA Number: [id number] Performed By: #### L [id number] #### [facility] (BEAKER) [address] [place] [address] CBCon 08-18-2023 Erythrocyte distribution width (RBC) [Ratio] 12.6 % Normal 11.5-15.0 [facility] Comment on above: Performed By: #### L [id number] #### [facility] (BEAKER) [address] [place] [address] ERYTHROCYTE MEAN CORPUSCULAR HEMOGLOBIN CONCENTRATION (G/DL) BY AUTOMATED 32.3 g/dL Normal 32.0-35.0 [facility] Comment on above: Performed By: #### L [id number] #### [facility] (BEAKER) [address] [place] [address] Hematocrit (Bld) [Volume fraction] 37.8 % Low 39.0-55.0 [facility] Comment on above: Performed By: #### L [id number] #### [facility] (BEAKER) [address] [place] [address] Hemoglobin (Bld) [Mass/Vol] 12.2 g/dL Low 13.0-17.0 [facility] Comment on above: Performed By: #### L [id number] #### [facility] (BEAKER) [address] [place] [address] MCH (RBC) [Entitic mass] 30.7 pg Normal 27.0-33.0 [facility] Comment on above: Performed By: #### L [id number] #### [facility] ([facility]) [address] [place] [address] MCV (RBC) [Entitic vol] 95.0 fL Normal 82.0-98.0 [facility] Comment on above: Performed By: #### L [id number] #### [facility] ([facility]) [address] [place] [address] PLATELETS (10*3/UL) IN BLOOD AUTOMATED COUNT 206 10*3/uL Normal 150-400 [facility] Comment on above: Performed By: #### L [id number] #### [facility] ([facility]) [address] [place] [address] RBC (Bld) [#/Vol] 3.98 10*6/uL Low 4.20-5.70 [facility] Comment on above: Performed By: #### L [id number] #### [facility] ([facility]) [address] [place] [address] WBC (Bld) [#/Vol] 10.15 10*3/uL Normal 4.00-10.60 [facility] Comment on above: Performed By: #### L [id number] #### [facility] ([facility]) [address] [place] [address] COMPREHENSIVE METABOLIC PANE [place] 08-18-2023 Albumin [Mass/Vol] 4.1 g/dL Normal 3.5-5.7 [facility] Comment on above: Performed By: #### L [id number] #### [facility] ([facility]) [address] [place] [address] ALP [Catalytic activity/Vol] 122 U/L High 34-104 [facility] Comment on above: Performed By: #### L [id number] #### [facility] ([facility] [address] [place] [address] ALT [Catalytic activity/Vol] 8 U/L Normal 7-52 [facility] Comment on above: Performed By: #### L [id number] #### [facility] ([facility]) [address] [place] [address] Anion gap [Moles/Vol] 12 mmol/L Normal 7-20 [facility] Comment on above: Performed By: #### L [id number] #### [facility] ([facility]) [address] [place] [address] AST [Catalytic activity/Vol] 12 U/L Low 13-39 [facility] Comment on above: Performed By: #### L [id number] #### [facility] ([facility]) [address] [place] [address] Bilirubin [Mass/Vol] 0.5 mg/dL Normal 0.3-1.0 [facility] Comment on above: Performed By: #### L [id number] #### [facility] ([facility]) [address] [place] [address] Calcium [Mass/Vol] 8.9 mg/dL Normal 8.6-10.3 [facility] Comment on above: Performed By: #### L [id number] #### [facility] ([facility]) [address] [place] [address] Chloride [Moles/Vol] 102 mmol/L Normal 98-107 [facility] Comment on above: Performed By: #### L [id number] #### [facility] ([facility]) [address] [place] [address] CO2 [Moles/Vol] 26 mmol/L Normal 21-31 [facility] Comment on above: Performed By: #### L [id number] #### [facility] (BEAKER) [address] [place] [address] Creatinine [Mass/Vol] 1.02 mg/dL Normal 0.70-1.30 [facility] Comment on above: Performed By: #### L [id number] #### [facility] (BEAKER) [address] [place] [address] GLOMERULAR FILTRATION RATE ML/MIN/1.73 SQ M.PREDICTED 73.8 mL/min/1.73m*2 Normal >60.0 [facility] Comment on above: Result Comment: The [facility]???s estimated glomerular filtration rate (eGFR) will [...] group of individuals. Performed By: #### L [id number] #### [facility] ([facility]) [address] [facility] [place] [address] Glucose [Mass/Vol] 100 mg/dL Normal 70-100 [facility] Comment on above: Performed By: #### L [id number] #### [facility] ([facility]) [address] [facility] [place] [address] Potassium [Moles/Vol] 4.7 mmol/L Normal 3.5-5.1 [facility] Comment on above: Performed By: #### L [id number] #### [facility] ([facility]) [address] [place] [address] Protein [Mass/Vol] 7.8 g/dL Normal 6.0-8.3 [facility] Comment on above: Performed By: #### L [id number] #### [facility] ([facility] [address] [place] [address] Sodium [Moles/Vol] 135 mmol/L Low 136-145 [facility] Comment on above: Performed By: #### L [id number] #### [facility] (BEAKER) [address] [place] [address] Urea nitrogen [Mass/Vol] 24 mg/dL Normal 7-25 [facility] Comment on above: Performed By: #### L [id number] #### [facility] (BEAKER) [address] [place] [address] UREA NITROGEN/CREATININE (MASS RATIO) IN SER/PLAS 23.5 Normal [facility] Comment on above: Performed By: #### L [id number] #### [facility] (BEAKER) [address] [place] [address] Labon 08-18-2023 Lab [id number] SamuelClarice Melgoza 1940 M Date Provider Department [place] 08/18/2023 2242-[facility] RESOURCE [facility] Comprehensiv Family History Problem Relation Age of Onset Heart disease Mother No Known Problems Father No Known Problems Sister Family Status - Relation Status Age at Mother Father Sister Alive Normal [facility] Office Visiton 08-18-2023 Follow-up visit [id number] Kris Bakerjona Melgoza 1940 M Date Provider Department [place] 08/18/2023 [id number] BRYANT DCC ONC DCC Family History Problem Relation Age of Onset Heart disease Mother No Known Problems Father No Known Problems Sister Family Status - Relation Status Age at Mother Father Sister Alive Level of Service:81292 [place] OFFICE/OUTPATIENT ESTABLISHED HIGH MDM 40 MIN Reason for Visit and Comments: Consult [484] - 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 Review MRCP that was done yesterday. Normal [facility] PROTIME-INRon 08-18-2023 INR IN PPP BY COAGULATION ASSAY 1.03 Normal 0.90-1.10 [facility] Comment on above: Result Comment: ACCC [...] 1995;108:231S-246S. Performed By: #### L [id number] #### [facility] ([facility]) [address] [place] [address] PROTHROMBIN TIME (PT) IN PPP BY COAGULATION ASSAY 13.5 Seconds Normal 12.3-14.8 [facility] Comment on above: Performed By: #### L AB320 #### [facility] ([facility]) [address] [place] [address] TYPE AND SCREENon 08-18-2023 AB SCREEN Negative Normal [facility] Comment on above: Performed By: #### L [id number] #### [facility] ([facility]) [address] [place] [address] ABO group Nom (Bld) A Normal [facility] Comment on above: Performed By: #### L [id number] #### [facility] ([facility]) [address] [place] [address] RH TYPE IN BLOOD Positive Normal [facility] Comment on above: Performed By: #### L [id number] #### [facility] ([facility]) [address] [place] [address] MR ABDOMEN WO CONTRAST MRCPo n 08-17-2023 [...] mass. Electronically signed: Mendoza Rodriguez MD. Not [place]dtd Invalid Interpretation Code [facility] Comment on above: Order Comment: Gallb ladder mass. 2908-13-2023 29 Addended by: NICOLE MONTES on: 08/16/2023 11:34 AM Modules accepted: Orders Normal [facility] 29 Addended by: MARIA EUGENIA BERRY on: 08/13/2023 11:35 AM Modules accepted: Orders Normal [facility] Office Visiton 08-13-2023 Follow-up visit [id number] Clarice Baker minoo Melgoza 1940 M Date Provider Department Center 08/13/2023 465-MARIA EUGENIA BERRY ONC DCC Family History Problem Relation Age of Onset Heart disease Mother No Known Problems Father No Known Problems Sister Family Status - Relation Status Age at Mother Father Sister Alive Level of Service:NOCHG [place] 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 for Visit and Comments: New Patient [632] - APPLIED PSYCHOLOGY CHAIR - Gallbladder mas Normal [facility] Orders Onlyon 08-04-2023 Orders Only [id number] Clarice Baker minoo Melgoza 1940 M Date Provider Department Center 08/04/2023 [id number], HISTORICAL DCC ONC DCC No family history on file Normal [facility] CT angio abdomen pelvison CT angio abdomen pelvis [facility] [place] [address] CT Scan Report Signed Patient: Chico Baker MR#: [id number] 284 : 1940 Acct:[id number] Age/Sex: 83 / M ADM Date: 06/16/23 Loc: CT Room: Type: [facility] Attending Dr: Raul Quan MD Copies [...] aortic 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 The [place] aneurysmal sac is grossly unchanged in size [...] Payan Jr., D.OSilvestre06/16/2023 1:59 PM Dictation Location: [place] [address] Transcribed By: ALEX 06/16/23 1354 Dictated By: Woody Payan Jr, DO 06/16/23 1351 Signed By: 06/16/23 1359 Normal [facility] ISTAT XRay CREon 06-16-2023 ISTAT GFR > 60.0 Normal [facility] Comment on above: Result Comment: PERF ORMED BY: [place] [address] PATHOLOGIST PASTRY COOK HELPER ZENA CASTELLON M.D. Performed By: #### I SCRE #### [address] No Panel InformationOrdered By: Raul Quan on 06-16-2023 Bedside Estimated GFR (eGFR) > 60.0 [facility] Whole blood creatinine measu rementOrdered By: Raul Quan on 06-16-2023 Creatinine [Mass/Vol] 0.9 mg/dL Normal 0.6-1.3 [facility] Comment on above: ER/ESD physician is notified/shown all ISTAT results.Critical values may be confirmed by laboratory testing ifdeemed necessary by ER attending doctor. Result Comment: ER/E SD physician is notified/shown all ISTAT results. Critical values may be confirmed by laboratory testing if deemed necessary by ER attending doctor. Performed By: #### I SCRE #### [address] Calculus Analysison 05-12-19 24 Calcium oxalate dihydrate Infrared spectroscopy (Stone) [Mass fraction] 20 % Invalid Interpretation Code [facility] Comment on above: Performed By: #### 1 [id number] ####[facility] [address] [place] [address] Calcium oxalate monohydrate (Stone) [Mass fraction] 80 % Invalid Interpretation Code [facility] Comment on above: Performed By: #### 1 [id number] ####[facility] [address] [facility] [place] [address] Color (Stone) Brown Invalid Interpretation Code [facility] Comment on above: Performed By: #### 1 [id number] ####[facility] [address] [place] [address] Composition Comment Invalid Interpretation Code [facility] Comment on above: Result Comment: Perc entage (Represents the % composition) Performed By: #### 1 [id number] ####[facility] [address] [place] [address] Disclaimer: Comment Invalid Interpretation Code [facility] Comment on above: Result Comment: This test was developed and its performance characteristics determined by [facility]. It has not been cleared or approved by the Food and Drug Administration. Performed at: [facility] Lab[address] [id number] Emanuel Jake Patela Performed By: #### 1 [id number] ####[facility] [address] [place] [address] Laboratory comment Daniel (Report) Comment Invalid Interpretation Code [facility] Comment on above: Result Comment: Mina aguilar questions regarding Calculi Analysis contact [facility] at: [phone]. Performed By: #### 1 [id number] ####[place] [place] [address] Please Note: Comment Invalid Interpretation Code [facility] Comment on above: Result Comment: Calc melissa report will follow via computer, mail or corporate associate attorney delivery. Performed By: #### 1 [id number] ####[address] [place] [address] Size (Stone) [Entitic vol] 2x3 Invalid Interpretation Code [facility] Comment on above: Result Comment: Mult iple pieces received. Dimensions of the largest piece reported. Performed By: #### 1 [id number] ####[address] [place] [address] Specimen source subject Nom Comment Invalid Interpretation Code [facility] Comment on above: Result Comment: Not provided Performed By: #### 1 [id number] ####[facility] [address] [place] [address] Stone Photo Comment Invalid Interpretation Code [facility] Comment on above: Result Comment: Phot ograph will follow under a separate cover Performed By: #### 1 [id number] ####[address] [place] [address] Weight (Stone) 12 mg Invalid Interpretation Code [facility] Comment on above: Performed By: #### 1 [id number] ####[facility] [address] [place] [address] Consent for Procedure/Surger yon 05-05-2023 Consent for Procedure/Surgery [id number]#1.00TIFF Normal [facility] RAD - MISCon 05-05-2023 RAD - MISC [id number]#1.00TIFF Normal [facility] Ambulatory Visit Summaryon 0 05-04-2023 Ambulatory [...] Contact prescribing physician if questions or concerns [facility] Prescription (#####) aspirin [...] Ivelisse Hassan MD Where: [facility] Carlos Normal [facility] Patient Educationon 05-04-19 24 Patient Education [...] ? 8 oz (237 mL) of milk, tyqmmts-abspaicwuhyr-lpgna milk, and calcium-fortifiedfruit juice. Calcium-fortified means that [...] Islander chard. ? Peanuts. ? Potato chips, serbian fries, and baked potatoes with skin on. ? Nuts and nut products. ? Chocolate. ? If you regularly take a diuretic medicine, make sure to eat at least 1 or 2 servings of fruits or vegetables that are high in potassium each day. These include: ? Avocado. ? Banana. ? [place], prune, carrot, or tomato juice. ? Baked [...] fish oil, or vitamin B6. ? Take zzfk-bbw-ysolcxu and prescription medicines only as told by your health care provider. These include supplements. What foods sh (more content not included)... Normal [facility] RAD - MISCon 05-04-2023 [facility] [id number]#1.00TIFF [facility] Urology Office/Clinic Noteon 05-04-2023 Urology Office/Clinic [...] lower urinary tract symptoms) hx TURP by [facility] 2019, prostate small on 05/11/22 [...] All questions/concern (more content not included)... Normal [facility] Comment on above: Result Comment: Elec tronically Signed By: Ivelisse Hassan MD\.br\Date and Time Signed: 05/04/23 12:02 EST\.br\Electronically Co-Signed By: Eleonora Belcher.br\Date and Time Co-Signed: 05/04/23 11:47 EST Operative Reporton Operative Report [id number]#1.00TIFF [facility] Physician Orderon 04-29-2023 Physician Order [id number]#1.00TIFF [facility] RAD - MISCon 04-28-2023 RAD - MISC [id number]#1.00TIFF [facility] Consultation Noteon 04-23-19 Consultation Note [id number]#1.00TIFF [facility] Formson 04-23-2023 Forms [id number]#1.00TIFF [facility] Consent for Procedure/Surger yon 04-21-2023 Consent for Procedure/Surgery [id number]#1.00TIFF [facility] Lab Reportson 04-21-2023 Lab Reports [id number]#1.00TIFF [facility] Lab Reports [id number]#1.00TIFF [facility] Activated partial thrombopla stin time (aPTT) in platelet poor plasma by coagulation aon 04-20-2023 aPTT Coag (PPP) [Time] 32.6 s 22.3-36.2 [facility] Basophils Auto (Bld) [#/Vol] on 04-20-2023 Basophils (Bld) [#/Vol] 0.1 10 3/uL 0.0-0.1 [facility] Basophils/100 WBC Auto (Bld) on 04-20-2023 Basophils/100 WBC (Bld) 0.5 % 0.2-2.0 [facility] Eosinophils/100 WBC Auto (Bl d)on 04-20-2023 Eosinophils/100 WBC (Bld) 1.2 % 0.9-7.0 [facility] Erythrocyte distribution wid th Auto (RBC) [Ratio]on 04-20-2023 Erythrocyte distribution width (RBC) [Ratio] 12.4 % 11.0-15.0 [facility] Estimated glomerular filtrat ion rate (GFR) non- Americanon 04-20-2023 GFR/1.73 sq M.predicted among non-blacks MDRD (S/P/Bld) [Vol rate/Area] mL/min/{1.73_m2} >=60 [facility] Formson 04-20-2023 Forms [id number]#1.00TIFF Normal [facility] Hematocrit Auto (Bld) [Volum e fraction]on 04-20-2023 Hematocrit (Bld) [Volume fraction] 36.7 % 42.0-54.0 [facility] Hemoglobin [Mass/volume] in Bloodon 04-20-2023 Hemoglobin (Bld) [Mass/Vol] 11.5 g/dL 14.0-18.0 [facility] INR in Platelet poor plasma by Coagulation assayon 04-20-2023 INR Coag (PPP) [Relative time] 1.01 {INR} [facility] Comment on above: DESIRED INR:2.0-3.0 CONDITIONS NOT LISTED BELOW2.5-3.5 FOR PROSTHETIC HEART VALVE REPLACEMENT2.5-3.5 RECURRENT THROMBOSIS Laboratory - Chemistry and C hemistry - challengeon 04-20-2023 Calcium [Mass/Vol] 9.0 mg/dL 8.5-10.1 [facility] Chloride [Moles/Vol] 104 mmol/L 98-107 [facility] CO2 [Moles/Vol] 28.9 mmol/L 21.0-32.0 [facility] Creatinine [Mass/Vol] 0.89 mg/dL 0.70-1.30 [facility] GFR/1.73 sq M.predicted MDRD (S/P/Bld) [Vol rate/Area] mL/min/{1.73_m2} >=60 [facility] Glucose [Mass/Vol] 133 mg/dL 74-106 [facility] Potassium [Moles/Vol] 4.6 mmol/L 3.5-5.1 [facility] Sodium [Moles/Vol] 140 mmol/L 136-145 [facility] Urea nitrogen [Mass/Vol] 15.0 mg/dL 7.0-18.0 [facility] Urea nitrogen/Creatinine [Mass ratio] 16.9 mg/mg [facility] Laboratory - Hematology and Cell countson 04-20-2023 Immature granulocytes/100 WBC (Bld) 0.3 % 0.0-0.5 [facility] Leukocytes [#/volume] correc shyann for nucleated erythrocytes in Blood by Automated counon 04-20-2023 WBC corrected for nucl RBC Auto (Bld) [#/Vol] 9.9 10 3/uL 4.0-11.0 [facility] Lymphocytes Auto (Bld) [#/Vo l]on 04-20-2023 Lymphocytes (Bld) [#/Vol] 1.1 10 3/uL 1.2-3.8 [facility] Lymphocytes/100 WBC Auto (Bl d)on 04-20-2023 Lymphocytes/100 WBC (Bld) 11.3 % 20.5-60.0 [facility] MCH Auto (RBC) [Entitic mass ]on 04-20-2023 MCH (RBC) [Entitic mass] 29.6 pg 25.9-34.0 [facility] MCHC Auto (RBC) [Mass/Vol]on 04-20-2023 MCHC (RBC) [Mass/Vol] 31.3 g/dL 29.9-35.2 [facility] MCV Auto (RBC) [Entitic vol] on 04-20-2023 MCV (RBC) [Entitic vol] 94.6 fL 80.0-94.0 [facility] Monocytes Auto (Bld) [#/Vol] on 04-20-2023 Monocytes (Bld) [#/Vol] 0.8 10 3/uL 0.3-0.8 [facility] Monocytes/100 WBC Auto (Bld) on 04-20-2023 Monocytes/100 WBC (Bld) 8.5 % 1.7-12.0 [facility] Neutrophils Auto (Bld) [#/Vo l]on 04-20-2023 Neutrophils (Bld) [#/Vol] 7.8 10 3/uL 1.4-6.5 [facility] Neutrophils/100 WBC Auto (Bl d)on 04-20-2023 Neutrophils/100 WBC (Bld) 78.2 % 43.0-75.0 [facility] No Panel Informationon 04-20 Eosinophils # (Auto) 0.1 10 3/uL 0.0-0.7 [facility] Immature Granulocyte # (Auto) 0.03 10 3/uL 0.00-0.03 [facility] Platelet mean volume Auto (B ld) [Entitic vol]on 04-20-2023 Platelet mean volume (Bld) [Entitic vol] 9.4 fL 9.5-13.5 [facility] Platelets Auto (Bld) [#/Vol] on 04-20-2023 Platelets (Bld) [#/Vol] 188 10 3/uL 150-450 [facility] Prothrombin time (PT)on 04-08 PT Coag (PPP) [Time] 10.7 s 9.0-11.6 [facility] RBC Auto (Bld) [#/Vol]on RBC (Bld) [#/Vol] 3.88 10 6/uL 4.70-6.10 [facility] Serum or plasma anion gap de terminationon 04-20-2023 Anion gap [Moles/Vol] 11.7 mmol/L [facility] RAD - MISCon 04-08-2023 RAD - MISC [id number]#1.00TIFF Normal [facility] Operative Reporton Operative Report [id number]#1.00TIFF Normal [facility] RAD - MISCon 03-25-2023 RAD - MISC [id number]#1.00TIFF Normal [facility] Consent for Procedure/Surger yon 03-22-2023 Consent for Procedure/Surgery [id number]#1.00TIFF Normal [facility] Lab Reportson 03-19-2023 Lab Reports [id number]#1.00TIFF Normal [facility] RAD - MISCon 03-19-2023 RAD - MISC [id number]#1.00TIFF Normal [facility] Reminderson 03-03-2023 Reminders - From: Faviola Clemens To: EU - Recalls Mo; Sent: 01/13/2023 10:01:25 EST Show up: 02/12/2023 10:01:00 EST Subject: LINDSEY and KUB Due Date/Time: 02/12/2023 10:01:00 EST Pt to have LINDSEY and KUB done in March at [facility]. Orders placed. Possible ESWL pending size of stones. No follow up at this time. Pt to be called with results. Called pt and reminded him to complete LINDSEY/KUB @ [facility] in the next month. Orders were faxed today. From: Sarika Horta (EU - Recalls oM) To: ADALGISA ANTOINE PA-C; Sent: 02/22/2023 09:37:39 [...] KML Patient is scheduled for 03/24/22 @ [facility] Comment on above: Result Comment: Miss ing Attachment - attachment exceeds size limitation (02/19/2023) RAD - Ultrasound Report Can be viewed in source system Missing Attachment - attachment exceeds size limitation (02/19/2023) RAD - MISC Can be viewed in source system RAD - MISCon 02-22-2023 RAD - MISC [id number]#1.00TIFF [facility] RAD - Ultrasound Reporton RAD - Ultrasound Report [id number]#1.00TIFF [facility] Screenson 01-14-2023 Screens [id number]#1.00TIFF [facility] Screens [id number]#1.00TIFF Normal [facility] Patient Educationon 01-14-20 Patient Education Urology Benign [...] Follow these instructions at home: ? Take wwek-sic-losbdep and prescription medicines only as told by [...] the medicine (more content not included)... Normal [facility] Urology Office/Clinic Noteon 01-13-2023 Urology Office/Clinic [...] with voice recognition artificial intelligence software, specifically [employer], [employer] and or [employer]. Substitutions may have occurred due to the [...] stones no (more content not included)... Normal [facility] Comment on above: Result Comment: Elec tronically Signed By: Mo LEIJA, Ivelisse Schreiber\.br\Date and Time Signed: 01/13/23 16:25 EST\.br\Electronically Co-Signed By: Faviola Clemens\.br\Date and Time Co-Signed: 01/13/23 09:59 EST [place] 10-08-2022 Screens [id number]#1.00CD:[address] [facility] Screens [id number]#1.00CD:[address] [facility] Ambulatory Visit Summaryon 0 10-07-2022 Ambulatory Visit Summary CHICO BAKER :1940 Visit Date:10/07/2022 Ambulatory Visit Instructions Your Diagnosis BPH with obstruction/lower urinary tract symptoms History of kidney stones Asymptomatic microscopic hematuria 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 Tests Performed Urnls Dip Stick Auto w/o Microscopy POC [id number] Your Care Team Attending Physician - Mo [...] LEIJA, Ivelisse Schreiber Where: [facility] Patient Educationon 10-08-19 Patient Education Urology [...] Follow these instructions at home: ? Take vhrm-sag-wfefjjd and prescription medicines only as told by [...] the medicine (more content not included)... Normal [facility] Urology Office/Clinic Noteon 10-07-2022 Urology Office/Clinic [...] lower urinary tract symptoms) hx TURP by [facility] 2019, prostate small on 05/11/22 [...] neg, s (more content not included)... Normal [facility] Comment on above: Result Comment: Elec tronically Signed By: Ivelisse Hassan MD.br\Date and Time Signed: 10/07/22 10:28 EDT\.br\Electronically Co-Signed By: Eleonora Belcher.br\Date and Time Co-Signed: 10/07/22 09:25 EDT Consent for Procedure/Surger yon 07-29-2022 Consent for Procedure/Surgery [id number]#1.00CD:127 Normal [facility] Patient Educationon 07-29-19 Patient Education [...] these instructions at home: Medicines ? Take xcob-nxo-lzabrwv and prescription medicines only as told by [...] include cig (more content not included)... Normal [facility] Urology Office/Clinic Noteon 07-28-2022 Urology [...] urine The Urethra was dilated to: 16-24 Irish with connor sounds without difficulty Soft 14 [...] (erectile d (more content not included)... Normal [facility] Comment on above: Result Comment: Elec tronically Signed By: Mo LEIJA, Ivelisse Schreiber\.br\Date and Time Signed: 07/28/22 10:49 EDT\.br\Electronically Co-Signed By: Clarissa Joaquin MA\.br\Date and Time Co-Signed: 07/28/22 10:28 EDT Blood activated clotting sue e by coagulation assayOrdered By: Raul Quan on 07-08-2022 ACT Coag (Bld) 335 s 90-139 [facility] Comment on above: Reference Range: 90- 139 (Non-heparinized) Laboratory - CoagulationOrde red By: Raul Quan on 07-08-2022 PT Coag (PPP) [Time] 11.7 s 9.0-12.9 [facility] Platelet poor plasma interna tional normalized ratio (INR) by coagulation assay (relatOrdered By: Raul Quan on 07-08-2022 INR Coag (PPP) [Relative time] 1.0 {INR} [facility] Comment on above: INR Therapeutic Rang e [...] [Catalytic activity/Vol] 9 U/L 7-52 [facility] Albumin [Mass/volume] in Ser um or Plasma by Bromocresol green (BCG) dye binding methoOrdered By: Raul Quan on 07-01-2022 Albumin BCG dye [Mass/Vol] 3.7 g/dL 3.5-5.7 [facility] Alkaline phosphatase [Enzyma tic activity/volume] in Serum or PlasmaOrdered By: Raul Quan on 07-01-2022 ALP [Catalytic activity/Vol] 96 U/L 34-104 [facility] Aspartate aminotransferase [ Enzymatic activity/volume] in Serum or PlasmaOrdered By: Raul Quan on 07-01-2022 AST [Catalytic activity/Vol] 14 U/L 13-39 [facility] Basophils Auto (Bld) [#/Vol] Ordered By: Raul Quan on 07-01-2022 Basophils (Bld) [#/Vol] 0.1 10*3/uL 0.0-0.2 [facility] Basophils/100 WBC Auto (Bld) Ordered By: Raul Quan on 07-01-2022 Basophils/100 WBC (Bld) 0.7 % . [facility] Bilirubin.total [Mass/volume ] in Serum or PlasmaOrdered By: Raul Quan on 07-01-2022 Bilirubin [Mass/Vol] 0.5 mg/dL 0.3-1.0 [facility] Calcium [Mass/volume] in Ser um or PlasmaOrdered By: Raul Quan on 07-01-2022 Calcium [Mass/Vol] 8.5 mg/dL 8.6-10.3 [facility] Carbon dioxide, total [Moles /volume] in Serum or PlasmaOrdered By: Raul Quan on 07-01-2022 CO2 [Moles/Vol] 24.6 mmol/L 21.0-31.0 [facility] Chloride [Moles/volume] in S aisha or PlasmaOrdered By: Raul Quan on 07-01-2022 Chloride [Moles/Vol] 100 mmol/L 98-107 [facility] Creatinine [Mass/volume] in Serum or PlasmaOrdered By: Raul Quan on 07-01-2022 Creatinine [Mass/Vol] 0.87 mg/dL 0.70-1.30 [facility] Eosinophils Auto (Bld) [#/Vo l]Ordered By: Raul Quan on 07-01-2022 Eosinophils (Bld) [#/Vol] 0.1 10*3/uL 0.0-0.45 [facility] Eosinophils/100 WBC Auto (Bl d)Ordered By: Raul Quan on 07-01-2022 Eosinophils/100 WBC (Bld) 1.5 % . [facility] Erythrocyte distribution wid th Auto (RBC) [Ratio]Ordered By: Raul Quan on 07-01-2022 Erythrocyte distribution width (RBC) [Ratio] 13.0 % 12.0-14.8 [facility] Globulin Calc (S) [Mass/Vol] Ordered By: Raul Quan 07-01-2022 Globulin (S) [Mass/Vol] 3.4 g/dL [facility] Glucose [Mass/volume] in Ser um or PlasmaOrdered By: Raul Qaun on 07-01-2022 Glucose [Mass/Vol] 163 mg/dL 70-100 [facility] Comment on above: ADA recommended refe rence rangeRandom Glucose Reference Range is dependent on time and content of last meal. Glucose of more than 200 mg/dL in a nonstressed, ambulatory subject supports the diagnosis of Diabetes Mellitus. Hematocrit Auto (Bld) [Volum e fraction]Ordered By: Raul Quan on 07-01-2022 Hematocrit (Bld) [Volume fraction] 36.4 % 38.8-50.0 [facility] Hemoglobin [Mass/volume] in BloodOrdered By: Raul Quan on 07-01-2022 Hemoglobin (Bld) [Mass/Vol] 12.1 g/dL 13.0-17.0 [facility] Leukocytes [#/volume] correc shyann for nucleated erythrocytes in Blood by Automated counOrdered By: Raul Quan on 07-01-2022 WBC corrected for nucl RBC Auto (Bld) [#/Vol] 8.5 10*3/uL 4.1-10.5 [facility] Lymphocytes Auto (Bld) [#/Vo l]Ordered By: Raul Quan on 07-01-2022 Lymphocytes (Bld) [#/Vol] 1.6 10*3/uL 1.00-4.8 [facility] Lymphocytes/100 WBC Auto (Bl d)Ordered By: Raul Quan on 07-01-2022 Lymphocytes/100 WBC (Bld) 19.3 % . [facility] MCH Auto (RBC) [Entitic mass ]Ordered By: Raul Quan on 07-01-2022 MCH (RBC) [Entitic mass] 30.2 pg 27.5-35.2 [facility] MCHC Auto (RBC) [Mass/Vol]Or dered By: Raul Quan on 07-01-2022 MCHC (RBC) [Mass/Vol] 33.3 g/dL 32.5-35.6 [facility] MCV Auto (RBC) [Entitic vol] Ordered By: Raul Quan on 07-01-2022 MCV (RBC) [Entitic vol] 90.7 fL 83.5-101 [facility] Monocytes Auto (Bld) [#/Vol] Ordered By: Raul Quan on 07-01-2022 Monocytes (Bld) [#/Vol] 0.9 10*3/uL 0.0-0.8 [facility] Monocytes/100 WBC Auto (Bld) Ordered By: Raul Quan on 07-01-2022 Monocytes/100 WBC (Bld) 11.1 % . [facility] Neutrophils Auto (Bld) [#/Vo l]Ordered By: Raul Quan on 07-01-2022 Neutrophils (Bld) [#/Vol] 5.7 10*3/uL 1.8-7.7 [facility] Neutrophils/100 WBC Auto (Bl d)Ordered By: Raul Quan on 07-01-2022 Neutrophils/100 WBC (Bld) 67.4 % . [facility] No Panel InformationOrdered By: Raul Quan on 07-01-2022 Estimated GFR (CKD-EPI) > 60.0 mL/Min [facility] Creatinine Clearance (Chem N/A [facility] Nucleated erythrocytes [Pres ence] in Blood by Automated countOrdered By: Raul Quan on 07-01-2022 Nucleated RBC Auto Ql (Bld) 0.0 /100{WBC} 0-0.5 [facility] Platelet mean volume Auto (B ld) [Entitic vol]Ordered By: Raul Quan on 07-01-2022 Platelet mean volume (Bld) [Entitic vol] 7.6 fL 6.6-10.1 [facility] Platelets Auto (Bld) [#/Vol] Ordered By: Raul Quan on 07-01-2022 Platelets (Bld) [#/Vol] 198 10*3/uL 150-450 [facility] Potassium [Moles/volume] in Serum or PlasmaOrdered By: Raul Quan on 07-01-2022 Potassium [Moles/Vol] 4.4 mmol/L 3.5-5.1 [facility] Protein [Mass/volume] in Ser um or PlasmaOrdered By: Raul Quan on 07-01-2022 Protein [Mass/Vol] 7.1 g/dL 6.4-8.9 [facility] RBC Auto (Bld) [#/Vol]Ordere d By: Raul Quan on 07-01-2022 RBC (Bld) [#/Vol] 4.01 10*6/uL 3.90-5.60 [facility] Serum or plasma albumin/glob ulin mass ratioOrdered By: Raul Quan on 07-01-2022 Albumin/Globulin [Mass ratio] 1.1 {ratio} [facility] Serum or plasma anion gap de terminationOrdered By: Raul Quan on 07-01-2022 Anion gap [Moles/Vol] 13.8 mmol/L 6.0-15.0 [facility] Sodium [Moles/volume] in Ser um or PlasmaOrdered By: Raul Quan on 07-01-2022 Sodium [Moles/Vol] 134 mmol/L 136-145 [facility] Urea nitrogen [Mass/volume] in Serum or PlasmaOrdered By: Raul Quan on 07-01-2022 Urea nitrogen [Mass/Vol] 17 mg/dL 7-25 [facility] WBC Auto (Bld) [#/Vol]Ordere d By: Raul Quan on 07-01-2022 WBC (Bld) [#/Vol] 8.5 10*3/uL 4.1-10.5 [facility] Patient Educationon 06-25-19 Patient Education Urology Hematuria, [...] these instructions at home: Medicines ? Take aprv-rgh-cbjwjcy and prescription medicines only as told by [...] the blood stops without treatment. ? Take gxel-tmi-ufcldkj and prescription medicines only as told by your health care provider. ? Drink enough fluid to keep your urine pale yellow. This information is not intended to replace advice given to you by your health care provider. Make sure you discuss any questions you have with your health care provider. Document Revised: 10/23/2020 Document Reviewed: 10/23/2020 [employer] Patient Education ? 2022 [place] [facility]. [facility] Screenson 06-24-2022 Screens [id number]:[address] [facility] Screens [id number]#[id number]:[address] [facility] Urology Office/Clinic Noteon 06-24-2022 Urology Office/Clinic [...] Prior PVR 26 ml hx TURP by 2019, prostate small on CT scan 11-20g, [...] Urnls Dip Stick Auto w/o Microscopy POC 14316 Urology Procedure Order 4. Penile rash (R21: Rash and other nonspecific skin eruption) Pt states rash has completely cleared up after stopping Bactrim. Denies irritation. Head of penis is not red, but is discolored. Not bothersome. D/c use of cream. Resolved Ordered: Urology Procedure Order 5. ED (erectile dysfunction) (N52.9: Male erectile dysfunction, unspecified) (more content not included)... Normal [facility] Comment on above: Result Comment: Elec tronically Signed By: Mo LEIJA, Ivelisse Schreiber\.br\Date and Time Signed: 06/24/22 10:24 EDT RAD - CT Reporton 05-14-2022 RAD - CT Report [id number]#[id number]:[address] [facility] Creatinine (Bld) [Mass/Vol]O rdered By: Raul Quan on 05-11-2022 Creatinine [Mass/Vol] 0.9 mg/dL 0.6-1.3 [facility] Comment on above: ER/ESD physician is notified/shown all ISTAT results.Critical values may be confirmed by laboratory testing ifdeemed necessary by ER attending doctor. No Panel InformationOrdered By: aRul Quan on 05-11-2022 POC Estimated GFR > 60 [facility] Comment on above: GFR estimated refere nce range: According to KDOQI guidelines, <60 ml/min/1.73m2 is sufficient to diagnose a patient with chronic kidney disease. POC Estimated GFR Non- Amer > 60 [facility] URINALYSISOrdered By: Kirstie sanchez on 04-15-2022 [...] Interpretation Code Negative [facility] UA Auto SS [place].plasma/[place] .RBC (Bld) [Mass ratio] 21-30 /HPF Invalid [...] [facility] UA Auto SS Urobilinogen Qn (U) 0.4239651 {Nikki'U}/dL Normal 0.0 - 1.0 EU/dL [facility] [...] Interpretation Code Negative [facility] UA Auto SS [place].plasma/[place] .RBC (Bld) [Mass ratio] 4-20 /HPF Normal [...] [facility] UA Auto SS Urobilinogen Qn (U) 0.0986817 {Nikki'U}/dL Normal 0.0 - 1.0 EU/dL [facility] UA Auto SS WBC Auto Ql (U) 1+ *ABN* (02/11/22 10:38 AM) Invalid Interpretation Code Negative [facility] UA Auto SS WBC LM.HPF (Urine sed) [#/Area] 0-5 /HPF Normal 0-5/HPF [facility] UA Auto SS Basophils Auto (Bld) [#/Vol] Ordered By: Raul Quan on 02-05-2022 Basophils (Bld) [#/Vol] 0.1 10*3/uL 0.0-0.2 [facility] Basophils/100 WBC Auto (Bld) Ordered By: Raul Quan on 02-05-2022 Basophils/100 WBC (Bld) 0.6 % . [facility] Creatinine and Glomerular fi ltration rate.predicted panel (S/P/Bld)Ordered By: Raul Quan on 02-05-2022 Creatinine [Mass/Vol] 0.94 mg/dL 0.64-1.27 [facility] Eosinophils Auto (Bld) [#/Vo l]Ordered By: Raul Quan on 02-05-2022 Eosinophils (Bld) [#/Vol] 0.1 10*3/uL 0.0-0.45 [facility] Eosinophils/100 WBC Auto (Bl d)Ordered By: Raul Quan on 02-05-2022 Eosinophils/100 WBC (Bld) 0.7 % . [facility] Erythrocyte distribution wid th Auto (RBC) [Ratio]Ordered By: Raul Quan on 02-05-2022 Erythrocyte distribution width (RBC) [Ratio] 13.8 % 12.0-14.8 [facility] Estimated glomerular filtrat ion rate (GFR) non- AmericanOrdered By: Raul Quan on 02-05-2022 GFR/1.73 sq M.predicted among non-blacks MDRD (S/P/Bld) [Vol rate/Area] > 60 mL/Min [facility] Hematocrit Auto (Bld) [Volum e fraction]Ordered By: Raul Quan on 02-05-2022 Hematocrit (Bld) [Volume fraction] 34.6 % 38.8-50.0 [facility] Hemoglobin [Mass/volume] in BloodOrdered By: Raul Quan on 02-05-2022 Hemoglobin (Bld) [Mass/Vol] 11.4 g/dL 13.0-17.0 [facility] Leukocytes [#/volume] correc shyann for nucleated erythrocytes in Blood by Automated counOrdered By: Raul Quan on 02-05-2022 WBC corrected for nucl RBC Auto (Bld) [#/Vol] 10.3 10*3/uL 4.1-10.5 [facility] Lymphocytes Auto (Bld) [#/Vo l]Ordered By: Raul Quan on 02-05-2022 Lymphocytes (Bld) [#/Vol] 1.5 10*3/uL 1.00-4.8 [facility] Lymphocytes/100 WBC Auto (Bl d)Ordered By: Raul Quan on 02-05-2022 Lymphocytes/100 WBC (Bld) 14.4 % . [facility] MCH Auto (RBC) [Entitic mass ]Ordered By: Raul Quan on 02-05-2022 MCH (RBC) [Entitic mass] 30.1 pg 27.5-35.2 [facility] MCHC Auto (RBC) [Mass/Vol]Or dered By: Raul Quan on 02-05-2022 MCHC (RBC) [Mass/Vol] 32.9 g/dL 32.5-35.6 [facility] MCV Auto (RBC) [Entitic vol] Ordered By: Raul Quan on 02-05-2022 MCV (RBC) [Entitic vol] 91.6 fL 83.5-101 [facility] Monocytes Auto (Bld) [#/Vol] Ordered By: Raul Quan on 02-05-2022 Monocytes (Bld) [#/Vol] 1.5 10*3/uL 0.0-0.8 [facility] Monocytes/100 WBC Auto (Bld) Ordered By: Raul Quan on 02-05-2022 Monocytes/100 WBC (Bld) 14.8 % . [facility] Neutrophils Auto (Bld) [#/Vo l]Ordered By: Raul Quan on 02-05-2022 Neutrophils (Bld) [#/Vol] 7.1 10*3/uL 1.8-7.7 [facility] Neutrophils/100 WBC Auto (Bl d)Ordered By: Raul Quan on 02-05-2022 Neutrophils/100 WBC (Bld) 69.5 % . [facility] No Panel InformationOrdered By: Raul Quan on 02-05-2022 Estimated GFR () > 60 mL/Min [facility] Comment on above: GFR estimated refere nce range: According to KDOQI guidelines, <60 ml/min/1.73m2 is sufficient to diagnose a patient with chronic kidney disease. Pharmacy Creatinine Clearance (Chem 57.50 [facility] Nucleated erythrocytes [Pres ence] in Blood by Automated countOrdered By: Raul Quan on 02-05-2022 Nucleated RBC Auto Ql (Bld) 0.1 /100{WBC} 0-0.5 [facility] Platelet mean volume Auto (B ld) [Entitic vol]Ordered By: Raul Quan on 02-05-2022 Platelet mean volume (Bld) [Entitic vol] 7.9 fL 6.6-10.1 [facility] Platelets Auto (Bld) [#/Vol] Ordered By: Raul Quan on 02-05-2022 Platelets (Bld) [#/Vol] 142 10*3/uL 150-450 [facility] Comment on above: Delta: 198 on RBC Auto (Bld) [#/Vol]Ordere d By: Raul Quan on 02-05-2022 RBC (Bld) [#/Vol] 3.77 10*6/uL 3.90-5.60 [facility] Serum or plasma anion gap de terminationOrdered By: Raul Quan on 02-05-2022 Anion gap [Moles/Vol] 10.4 mmol/L 6.0-15.0 [facility] Serum or plasma calcium richy urement (mass/volume)Ordered By: Raul Quan on 02-05-2022 Calcium [Mass/Vol] 8.4 mg/dL 8.2-10.2 [facility] Serum or plasma chloride young surement (moles/volume)Ordered By: Raul Quan on 02-05-2022 Chloride [Moles/Vol] 101 mmol/L 95-114 [facility] Serum or plasma glucose richy urement (mass/volume)Ordered By: Raul Quan on 02-05-2022 Glucose [Mass/Vol] 109 mg/dL 70-100 [facility] Comment on above: ADA recommended refe rence rangeRandom Glucose Reference Range is dependent on time and content of last meal. Glucose of more than 200 mg/dL in a nonstressed, ambulatory subject supports the diagnosis of Diabetes Mellitus. Serum or plasma potassium me asurement (moles/volume)Ordered By: Raul Quan on 02-05-2022 Potassium [Moles/Vol] 4.6 mmol/L 3.5-5.1 [facility] Serum or plasma sodium measu rement (moles/volume)Ordered By: Raul Quan on 02-05-2022 Sodium [Moles/Vol] 135 mmol/L 136-146 [facility] Serum or plasma total carbon dioxide measurement (moles/volume)Ordered By: Raul Quan on 02-05-2022 CO2 [Moles/Vol] 28.2 mmol/L 22.0-30.0 [facility] Serum or plasma urea nitroge n measurement (mass/volume)Ordered By: Raul Quan on 02-05-2022 Urea nitrogen [Mass/Vol] 11 mg/dL 9-23 [facility] WBC Auto (Bld) [#/Vol]Ordere d By: Raul Quan on 02-05-2022 WBC (Bld) [#/Vol] 10.3 10*3/uL 4.1-10.5 [facility] Covid-19 PCR (CVDTBH)on 01-07 SARS-CoV-2 (COVID-19) RNA JESSIE+probe Ql (Unsp spec) Not detected Normal NOT DETECTED [facility] Comment on above: Result Comment: This test is not yet approved or cleared by the [place] FDA. When there are no FDA-approved or cleared tests available, and other criteria are met, FDA can make tests available under an emergency access mechanism called an Emergency Use Authorization (EUA). The EUA for this test is supported by the [place] of Health and Human Service's (HHS's) declaration [...] SARS-CoV-2. Performed By: #### C VDTBH #### [facility] [address] [place] [address] Dr. Jodi Oglesby CBC AUTO DIFFon 12-08-2021 BASO # 0.1 103/ul Normal 0.0-0.1 [facility] Comment on above: Performed By: #### D ATA1C #### [facility] [address] [place] [address] Dr. oJdi Oglesby Basophils/100 WBC (Bld) 0.5 % Normal 0.2-2.0 [facility] Comment on above: Performed By: #### D ATA1C #### [facility] [address] [place] [address] Dr. Joid Oglesby EO # 0.1 103/ul Normal 0.0-0.7 [facility] Comment on above: Performed By: #### D ATA1C #### [facility] [address] [place] [address] Dr. Jodi Oglesby Eosinophils/100 WBC (Bld) 1.4 % Normal 0.9-7.0 [facility] Comment on above: Performed By: #### D ATA1C #### [facility] [address] [place] [address] Dr. Jodi Oglesby Erythrocyte distribution width (RBC) [Ratio] 13.0 % Normal 11.0-15.0 [facility] Comment on above: Performed By: #### D ATA1C #### [facility] [address] [place] [address] Dr. Jodi Oglesby Hematocrit (Bld) [Volume fraction] 36.1 % Critically low 42.0-54.0 [facility] Comment on above: Performed By: #### D ATA1C #### [facility] [address] [place] [address] Dr. Jodi Oglesby Hemoglobin (Bld) [Mass/Vol] 11.2 g/dL Critically low 14.0-18.0 [facility] Comment on above: Performed By: #### D ATA1C #### [facility] [address] [place] [address] Dr. Jodi Oglesby IG # 0.04 10e3/ul Critically high 0.00-0.03 [facility] Comment on above: Performed By: #### D ATA1C #### [facility] [address] [place] [address] Dr. Jodi Oglesby IG % 0.4 % Normal 0.0-0.5 [facility] Comment on above: Performed By: #### D ATA1C #### [facility] [address] [place] [address] Dr. Jodi Oglesby LYMPH # 1.8 103/ul Normal 1.2-3.8 [facility] Comment on above: Performed By: #### D ATA1C #### [facility] [address] [place] [address] Dr. Jodi Oglesby Lymphocytes/100 WBC (Bld) 17.2 % Critically low 20.5-60.0 [facility] Comment on above: Performed By: #### D ATA1C #### [facility] [address] [place] [address] Dr. Jodi Oglesby MANUAL DIFF REQ NO Normal [facility] Comment on above: Performed By: #### Chavez ATA1C #### [facility] [address] [place] [address] Dr. Jodi Oglesby MCH (RBC) [Entitic mass] 30.4 pg Normal 25.9-34.0 [facility] Comment on above: Performed By: #### D ATA1C #### [facility] [address] [address] [address] Jodi Oglesby MCHC (RBC) [Mass/Vol] 31.0 g/dL Normal 29.9-35.2 [facility] Comment on above: Performed By: #### D ATA1C #### [facility] [address] [address] [address] Jodi Oglesby MCV (RBC) [Entitic vol] 98.1 fL Critically high 80.0-94.0 [facility] Comment on above: Performed By: #### D ATA1C #### [facility] [address] [place] [address] Dr. Jodi Oglesby MONO # 1.0 103/ul Critically high 0.3-0.8 [facility] Comment on above: Performed By: #### Chavez ATA1C #### [facility] [address] [place] [address] Dr. Jodi Oglesby Monocytes/100 WBC (Bld) 9.8 % Normal 1.7-12.0 [facility] Comment on above: Performed By: #### Chavez ATA1C #### [facility] [address] [place] [address] Dr. Jodi Oglesby NEUT # 7.3 103/ul Critically high 1.4-6.5 [facility] Comment on above: Performed By: #### D ATA1C #### [facility] [address] [place] [address] Dr. Jodi Oglesby Neutrophils/100 WBC (Bld) 70.7 % Normal 43.0-75.0 [facility] Comment on above: Performed By: #### D ATA1C #### [facility] [address] [place] [address] Dr. Jodi Oglesby Platelet mean volume (Bld) [Entitic vol] 9.1 fL Critically low 9.5-13.5 [facility] Comment on above: Performed By: #### D ATA1C #### [facility] [address] [address] [address] Jodi Oglesby PLT 214 103/ul Normal 150-450 [facility] Comment on above: Performed By: #### D ATA1C #### [facility] [address] [address] [address] Jodi Oglesby RBC 3.68 106/ul Critically low 4.70-6.10 [facility] Comment on above: Performed By: #### D ATA1C #### [facility] [address] [address] [address] Jodi Oglesby WBC 10.3 103/ul Normal 4.0-11.0 [facility] Comment on above: Performed By: #### D ATA1C #### [facility] [address] [place] [address] Dr. Jodi Oglesby PROF CHEM 8 (BAS METB)on Anion gap [Moles/Vol] 9.7 mmol/L Normal [facility] Comment on above: Performed By: #### C BC #### [facility] [address] [place] [address] Dr. Jodi Oglesby Calcium [Mass/Vol] 8.9 mg/dL Normal 8.5-10.1 [facility] Comment on above: Performed By: #### C BC #### [facility] [address] [place] [address] Dr. Jodi Oglesby Chloride [Moles/Vol] 102 mmol/L Normal 98-107 [facility] Comment on above: Performed By: #### C BC #### [facility] [address] [place] [address] Dr. Jodi Oglesby CO2 [Moles/Vol] 31.0 mmol/L Normal 21.0-32.0 [facility] Comment on above: Performed By: #### C BC #### [facility] [address] [place] [address] Dr. Jodi Oglesby Creatinine [Mass/Vol] 0.85 mg/dL Normal 0.70-1.30 [facility] Comment on above: Performed By: #### C BC #### [facility] [address] [place] [address] Dr. Jodi Oglesby EGFR-AF GUATEMALAN >60 Normal >=60 [facility] Comment on above: Performed By: #### C BC #### [facility] [address] [place] [address] Dr. Jodi Oglesby EGFR-NON AF GUATEMALAN >60 Normal >=60 [facility] Comment on above: Performed By: #### C BC #### [facility] [address] [place] [address] Dr. Jodi Oglesby Glucose [Mass/Vol] 106 mg/dL Normal 74-106 [facility] Comment on above: Performed By: #### C BC #### [facility] [address] [place] [address] Dr. Jodi Oglesby Potassium [Moles/Vol] 4.7 mmol/L Normal 3.5-5.1 [facility] Comment on above: Performed By: #### C BC #### [facility] [address] [place] [address] Dr. Jodi Oglesby Sodium [Moles/Vol] 138 mmol/L Normal 136-145 [facility] Comment on above: Performed By: #### C BC #### [facility] [address] [place] [address] Dr. Jodi Oglesby Urea nitrogen [Mass/Vol] 14.0 mg/dL Normal 7.0-18.0 [facility] Comment on above: Performed By: #### C BC #### [facility] [address] [place] [address] Dr. Jodi Oglesby Urea nitrogen/Creatinine [Mass ratio] 16.5 mg/mg Normal [facility] Comment on above: Performed By: #### C BC #### [facility] [address] [place] [address] Dr. Jodi Oglesby XR CHEST 2 Von [...] ROCIO RICARDO Date: 2021-12-08 16:20 Normal [facility] SARS-CoV-2 (COVID-19) RNA JESSIE+probe Ql (Unsp spec) Not detected Normal NOT DETECTED [facility] Comment on above: Result Comment: This test is not yet approved or cleared by the [place] FDA. When there are no FDA-approved or cleared tests available, and other criteria are met, FDA can make tests available under an emergency access mechanism called an Emergency Use Authorization (EUA). The EUA for this test is supported by the [place] of Health and Human Service's (HHS's) declaration [...] SARS-CoV-2. Performed By: #### C VDTBH #### [facility] [address] [place] [address] Dr. Jodi Oglesby CBC AUTO DIFFon 11-11-2021 BASO # 0.1 103/ul Normal 0.0-0.1 [facility] Comment on above: Performed By: #### C BC #### [facility] [address] [place] [address] Dr. Jodi Oglesby Basophils/100 WBC (Bld) 0.5 % Normal 0.2-2.0 [facility] Comment on above: Performed By: #### C BC #### [facility] [address] [place] [address] Dr. Jodi Oglesby EO # 0.2 103/ul Normal 0.0-0.7 [facility] Comment on above: Performed By: #### C BC #### [facility] [address] [place] [address] Dr. Jodi Oglesby Eosinophils/100 WBC (Bld) 1.9 % Normal 0.9-7.0 [facility] Comment on above: Performed By: #### C BC #### [facility] [address] [place] [address] Dr. Jodi Oglesby Erythrocyte distribution width (RBC) [Ratio] 13.6 % Normal 11.0-15.0 [facility] Comment on above: Performed By: #### C BC #### [facility] [address] [place] [address] Dr. Jodi Oglesby Hematocrit (Bld) [Volume fraction] 28.6 % Critically low 42.0-54.0 [facility] Comment on above: Performed By: #### C BC #### [facility] [address] [place] [address] Dr. Jodi Oglesby Hemoglobin (Bld) [Mass/Vol] 9.4 g/dL Critically low 14.0-18.0 [facility] Comment on above: Performed By: #### C BC #### [facility] [address] [place] [address] Dr. Jodi Oglesby IG # 0.08 10e3/ul Critically high 0.00-0.03 [facility] Comment on above: Performed By: #### C BC #### [facility] [address] [place] [address] Dr. Jodi Oglesby IG % 0.8 % Critically high 0.0-0.5 [facility] Comment on above: Performed By: #### C BC #### [facility] [address] [place] [address] Dr. Jodi Oglesby LYMPH # 1.3 103/ul Normal 1.2-3.8 [facility] Comment on above: Performed By: #### C BC #### [facility] [address] [place] [address] Dr. Jodi Oglesby Lymphocytes/100 WBC (Bld) 13.0 % Critically low 20.5-60.0 [facility] Comment on above: Performed By: #### C BC #### [facility] [address] [place] [address] Dr. Jodi Oglesby MANUAL DIFF REQ NO Normal [facility] Comment on above: Performed By: #### C BC #### [facility] [address] [place] [address] Dr. Jodi Oglesby MCH (RBC) [Entitic mass] 31.5 pg Normal 25.9-34.0 [facility] Comment on above: Performed By: #### C BC #### [facility] [address] [place] [address] Dr. Jodi Oglesby MCHC (RBC) [Mass/Vol] 32.9 g/dL Normal 29.9-35.2 [facility] Comment on above: Performed By: #### C BC #### [facility] [address] [place] [address] Dr. Jodi Oglesby MCV (RBC) [Entitic vol] 96.0 fL Critically high 80.0-94.0 [facility] Comment on above: Performed By: #### C BC #### [facility] [address] [place] [address] Dr. Jodi Oglesby MONO # 1.1 103/ul Critically high 0.3-0.8 [facility] Comment on above: Performed By: #### C BC #### [facility] [address] [place] [address] Dr. Jodi Oglesby Monocytes/100 WBC (Bld) 10.7 % Normal 1.7-12.0 [facility] Comment on above: Performed By: #### C BC #### [facility] [address] [place] [address] Dr. Jodi Oglesby NEUT # 7.4 103/ul Critically high 1.4-6.5 [facility] Comment on above: Performed By: #### C BC #### [facility] [address] [place] [address] Dr. Jodi Oglesby Neutrophils/100 WBC (Bld) 73.1 % Normal 43.0-75.0 [facility] Comment on above: Performed By: #### C BC #### [facility] [address] [address] [address] Jodi Oglesby Platelet mean volume (Bld) [Entitic vol] 9.3 fL Critically low 9.5-13.5 [facility] Comment on above: Performed By: #### C BC #### [facility] [id number] Jodi Oglesby PLT 288 103/ul Normal 150-450 [facility] Comment on above: Performed By: #### C BC #### [facility] [address] [address] [address] Jodi Oglesby RBC 2.98 106/ul Critically low 4.70-6.10 [facility] Comment on above: Performed By: #### C BC #### [facility] [address] [address] [address] Jodi Oglesby WBC 10.1 103/ul Normal 4.0-11.0 [facility] Comment on above: Performed By: #### C BC #### [facility] [address] [place] [address] ABD/PELVIS WO CONon [...] TAYO CASTILLO Date: 2021-11-11 03:10 Normal [facility] Covid-19 PCR (CVDTB)on SARS-CoV-2 (COVID-19) RNA JESSIE+probe Ql (Unsp spec) Not detected Normal NOT DETECTED [facility] Comment on above: Result Comment: When [...] for this test is supported by the [place] of Health and Human Service's declaration that [...] used). Performed By: #### C BC #### [facility] [address] [place] [address] Dr. Jodi Oglesby OCC BLD IMMUNO SCREENon OCCULT BLOOD Negative Normal NEGATIVE [facility] Comment on above: Performed By: #### D ATA1C #### [facility] [address] [place] [address] Dr. Jodi Oglesby PROF 14(COMP METB)on 022 Albumin [Mass/Vol] 3.0 g/dL Critically low 3.4-5.0 [facility] Comment on above: Performed By: #### C MP #### [facility] [address] [place] [address] Dr. Jodi Oglesby Albumin/Globulin [Mass ratio] 0.8 {ratio} Normal [facility] Comment on above: Performed By: #### C MP #### [facility] [address] [place] [address] Dr. Jodi Oglesby ALP [Catalytic activity/Vol] 126 U/L Critically high 46-116 [facility] Comment on above: Performed By: #### C MP #### [facility] [address] [place] [address] Dr. Jodi Oglesby ALT [Catalytic activity/Vol] 22 U/L Normal 16-63 [facility] Comment on above: Performed By: #### C MP #### [facility] [address] [address] [address] Jodi Oglesby Anion gap [Moles/Vol] 16.7 mmol/L Normal [facility] Comment on above: Performed By: #### C MP #### [facility] [address] [address] [address] Jodi Oglesby AST [Catalytic activity/Vol] 23 U/L Normal 15-37 [facility] Comment on above: Performed By: #### C MP #### [facility] [address] [address] [address] Jodi Oglesby Bilirubin [Mass/Vol] 0.6 mg/dL Normal 0.2-1.0 [facility] Comment on above: Performed By: #### C MP #### [facility] [address] [address] [address] Jodi Oglesby Calcium [Mass/Vol] 8.5 mg/dL Normal 8.5-10.1 [facility] Comment on above: Performed By: #### C MP #### [facility] [address] [address] [address] Jodi Oglesby Chloride [Moles/Vol] 99 mmol/L Normal 98-107 [facility] Comment on above: Performed By: #### C MP #### [facility] [address] [address] [address] Jodi Oglesby CO2 [Moles/Vol] 27.4 mmol/L Normal 21.0-32.0 [facility] Comment on above: Performed By: #### C MP #### [facility] [address] [address] [address] Jodi Oglesby Creatinine [Mass/Vol] 0.80 mg/dL Normal 0.70-1.30 [facility] Comment on above: Performed By: #### C MP #### [facility] [address] [address] [address] Jodi Oglesby EGFR-AF GUATEMALAN >60 Normal >=60 [facility] Comment on above: Performed By: #### C MP #### [facility] [address] [place] [address] Dr. Jodi Oglesby EGFR-NON AF GUATEMALAN >60 Normal >=60 [facility] Comment on above: Performed By: #### C MP #### [facility] [address] [place] [address] Dr. Jodi Oglesby Globulin (S) [Mass/Vol] 3.9 g/dL Normal [facility] Comment on above: Performed By: #### C MP #### [facility] [address] [address] [address] Jodi Oglesby Glucose [Mass/Vol] 116 mg/dL Critically high 74-106 [facility] Comment on above: Performed By: #### C MP #### [facility] [address] [place] [address] Dr. Jodi Oglesby Potassium [Moles/Vol] 4.1 mmol/L Normal 3.5-5.1 [facility] Comment on above: Performed By: #### C MP #### [facility] [address] [place] [address] Dr. Jodi Oglesby Protein [Mass/Vol] 6.9 g/dL Normal 6.4-8.2 [facility] Comment on above: Performed By: #### C MP #### [facility] [address] [place] [address] Dr. Jodi Oglesby Sodium [Moles/Vol] 129 mmol/L Critically low 136-145 [facility] Comment on above: Performed By: #### C MP #### [facility] [address] [place] [address] Dr. Jodi Oglesby Urea nitrogen [Mass/Vol] 15.0 mg/dL Normal 7.0-18.0 [facility] Comment on above: Performed By: #### C MP #### [facility] [address] [place] [address] Dr. Jodi Oglesby Urea nitrogen/Creatinine [Mass ratio] 18.8 mg/mg Normal [facility] Comment on above: Performed By: #### C MP #### [facility] [address] [place] [address] Dr. Jodi Oglesby PROTIMEon 11-11-2021 INR Coag (PPP) [Relative time] 1.01 {INR} Normal [facility] Comment on above: Performed By: #### P TT, PT #### [facility] [address] [place] [address] Dr. Jodi Oglesby INR GUIDELINES SEE BELOW Normal [facility] Comment on above: Result Comment: ESHA RED INR: 2.0 - 3.0 CONDITIONS NOT LISTED BELOW 2.5 - 3.5 FOR PROSTHETIC HEART VALVE REPLACEMENT 2.5 - 3.5 RECURRENT THROMBOSIS Performed By: #### P TT, PT #### [facility] [address] [place] [address] Dr. Jodi Oglesby PT Coag (PPP) [Time] 10.9 s Normal 9.0-11.6 [facility] Comment on above: Performed By: #### P TT, PT #### [facility] [address] [place] [address] Dr. Jodi Oglesby PTTon 11-11-2021 aPTT Coag (Bld) [Time] 25.4 s Normal 22.3-36.2 [facility] Comment on above: Performed By: #### P TT, PT #### [facility] [address] [place] [address] Dr. Jodi Oglesby CBC AUTO DIFFon 10-26-2021 BASO # 0.0 103/ul Normal 0.0-0.1 [facility] Comment on above: Performed By: #### D ATA1C #### [facility] [address] [place] [address] Dr. Jodi Oglesby Basophils/100 WBC (Bld) 0.3 % Normal 0.2-2.0 [facility] Comment on above: Performed By: #### D ATA1C #### [facility] [address] [place] [address] Dr. Jodi Oglesby EO # 0.1 103/ul Normal 0.0-0.7 [facility] Comment on above: Performed By: #### D ATA1C #### [facility] [address] [place] [address] Dr. Jodi Oglesby Eosinophils/100 WBC (Bld) 0.5 % Critically low 0.9-7.0 [facility] Comment on above: Performed By: #### D ATA1C #### [facility] [address] [place] [address] Dr. Jodi Oglesby Erythrocyte distribution width (RBC) [Ratio] 12.4 % Normal 11.0-15.0 [facility] Comment on above: Performed By: #### D ATA1C #### [facility] [address] [place] [address] Dr. Jodi Oglesby Hematocrit (Bld) [Volume fraction] 39.5 % Critically low 42.0-54.0 [facility] Comment on above: Performed By: #### D ATA1C #### [facility] [address] [place] [address] Dr. Jodi Oglesby Hemoglobin (Bld) [Mass/Vol] 12.8 g/dL Critically low 14.0-18.0 [facility] Comment on above: Performed By: #### D ATA1C #### [facility] [address] [place] [address] Dr. Jodi Oglesby IG # 0.07 10e3/ul Critically high 0.00-0.03 [facility] Comment on above: Performed By: #### D ATA1C #### [facility] [address] [place] [address] Dr. Jodi Oglesby IG % 0.5 % Normal 0.0-0.5 [facility] Comment on above: Performed By: #### D ATA1C #### [facility] [address] [place] [address] Dr. Jodi Oglesby LYMPH # 0.9 103/ul Critically low 1.2-3.8 [facility] Comment on above: Performed By: #### D ATA1C #### [facility] [address] [place] [address] Dr. Jodi Oglesby Lymphocytes/100 WBC (Bld) 6.3 % Critically low 20.5-60.0 [facility] Comment on above: Performed By: #### D ATA1C #### [facility] [address] [place] [address] Dr. Jodi Oglesby MANUAL DIFF REQ NO Normal [facility] Comment on above: Performed By: #### D ATA1C #### [facility] [address] [place] [address] Dr. Jodi Oglesby MCH (RBC) [Entitic mass] 30.8 pg Normal 25.9-34.0 [facility] Comment on above: Performed By: #### D ATA1C #### [facility] [address] [place] [address] Dr. Jodi Oglesby MCHC (RBC) [Mass/Vol] 32.4 g/dL Normal 29.9-35.2 [facility] Comment on above: Performed By: #### D ATA1C #### [facility] [address] [place] [address] Dr. Jodi Oglesby MCV (RBC) [Entitic vol] 95.2 fL Critically high 80.0-94.0 [facility] Comment on above: Performed By: #### D ATA1C #### [facility] [address] [place] [address] Dr. Jodi Oglesby MONO # 0.9 103/ul Critically high 0.3-0.8 [facility] Comment on above: Performed By: #### D ATA1C #### [facility] [address] [place] [address] Dr. Jodi Oglesby Monocytes/100 WBC (Bld) 6.2 % Normal 1.7-12.0 [facility] Comment on above: Performed By: #### D ATA1C #### [facility] [address] [place] [address] Dr. Jodi Oglesby NEUT # 12.8 103/ul Critically high 1.4-6.5 [facility] Comment on above: Performed By: #### D ATA1C #### [facility] [address] [place] [address] Dr. Jodi Oglesby Neutrophils/100 WBC (Bld) 86.2 % Critically high 43.0-75.0 [facility] Comment on above: Performed By: #### D ATA1C #### [facility] [address] [address] [address] Jodi Oglesby Platelet mean volume (Bld) [Entitic vol] 9.4 fL Critically low 9.5-13.5 [facility] Comment on above: Performed By: #### D ATA1C #### [facility] [address] [address] [address] Jodi Oglesby PLT 169 103/ul Normal 150-450 [facility] Comment on above: Performed By: #### D ATA1C #### [facility] [address] [address] [address] Jodi Oglesby RBC 4.15 106/ul Critically low 4.70-6.10 [facility] Comment on above: Performed By: #### D ATA1C #### [facility] [address] [address] [address] Jodi Oglesby WBC 14.8 103/ul Critically high 4.0-11.0 [facility] Comment on above: Performed By: #### D ATA1C #### [facility] [address] CHEST WO CONon [...] NICOLE SIMMS Date: 2021-10-26 17:38 Normal [facility] Covid-19 PCR (CVDTB)on 10-07 SARS-CoV-2 (COVID-19) RNA JESSIE+probe Ql (Unsp spec) Not detected Normal NOT DETECTED [facility] Comment on above: Result Comment: When [...] for this test is supported by the [place] of Health and Human Service's declaration that [...] used). Performed By: #### D ATA1C #### [facility] [address] [place] [address] Dr. Jodi Oglesby PROF CHEM 8 (BAS METB)on Anion gap [Moles/Vol] 11.7 mmol/L Normal [facility] Comment on above: Performed By: #### C BC #### [facility] [address] [place] [address] Dr. Jodi Oglesby Calcium [Mass/Vol] 9.2 mg/dL Normal 8.5-10.1 [facility] Comment on above: Performed By: #### C BC #### [facility] [address] [address] [address] Jodi Oglesby Chloride [Moles/Vol] 101 mmol/L Normal 98-107 [facility] Comment on above: Performed By: #### C BC #### [facility] [address] [address] [address] Jodi Oglesby CO2 [Moles/Vol] 27.6 mmol/L Normal 21.0-32.0 [facility] Comment on above: Performed By: #### C BC #### [facility] [address] [place] [address] Dr. Jodi Oglesby Creatinine [Mass/Vol] 0.98 mg/dL Normal 0.70-1.30 [facility] Comment on above: Performed By: #### C BC #### [facility] [address] [place] [address] Dr. Jodi Oglesby EGFR-AF GUATEMALAN >60 Normal >=60 [facility] Comment on above: Performed By: #### C BC #### [facility] [address] [place] [address] Dr. Jodi Oglesby EGFR-NON AF GUATEMALAN >60 Normal >=60 [facility] Comment on above: Performed By: #### C BC #### [facility] [address] [place] [address] Dr. Jodi Oglesby Glucose [Mass/Vol] 119 mg/dL Critically high 74-106 [facility] Comment on above: Performed By: #### C BC #### [facility] [address] [place] [address] Dr. Jodi Oglesby Potassium [Moles/Vol] 4.3 mmol/L Normal 3.5-5.1 [facility] Comment on above: Performed By: #### C BC #### [facility] [address] [place] [address] Dr. Jodi Oglesby Sodium [Moles/Vol] 136 mmol/L Normal 136-145 [facility] Comment on above: Performed By: #### C BC #### [facility] [address] [place] [address] Dr. Jodi Oglesby Urea nitrogen [Mass/Vol] 15.0 mg/dL Normal 7.0-18.0 [facility] Comment on above: Performed By: #### C BC #### [facility] [address] [address] [address] Jodi Oglesby Urea nitrogen/Creatinine [Mass ratio] 15.3 mg/mg Normal [facility] Comment on above: Performed By: #### C BC #### [facility] [address] [place], [place] [address] Dr. Jodi Oglesby XR CLAVICLE RTon 10-26-2021 [...] by: JANE ALDANA Date: 2021-10-26 15:37 Normal [facility] XR ELBOW RT MIN 3 [...] DEL CHAKRABORTY Date: 2021-10-26 17:23 Normal [facility] XR HIP RT 2 3V W [...] CHARLES ALEJANDRA Date: 2021-10-26 15:40 Normal [facility] CARDIAC STRESS/REST INJE CTIONon 10-21-2021 [facility] CARDIAC STRESS/REST INJECTION Patient Name: CHICO BAEKR STUDY: MYOCARDIAL PERFUSION STRESS TEST WITH LEXISCAN Performing facility: [facility], [address] [place] [address], [address], [place], [place] [address] Provider: Adilene Harrington MD, [facility] PCP: Dr. Jori Dunham Supervising provider: Adilene Harrington MD, FACC INDICATION: AAA Pre-operative risk assessment for AAA scheduled at [facility] on D. HISTORY: Gender: M; Age: 81 y/o ; Height: 0 cm; Weight: 0 kg. HTN; Carotid disease PAD AAA Denies smoking. COMPARISON: Previous nuclear testing completed [id number] at [facility]. Previous echo testing completed on 2020 at [facility]. ACCESSION NUMBER(S): [id number]; [id number]; [id number] ORDERING CLINICIAN: JUDAH HARRINGTON TECHNIQUE: ONE DAY [...] Electronically signed by: ALL HUDSON MD Normal [facility] No Panel Informationon 10-21 Normal -[facility]-[address] [place] Work Phone: COVID-19 Positive/NegativeOr dered By: Raul Quan on 10-13-2021 SARS-CoV-2 (COVID-19) N gene JESSIE+probe Ql (Resp) Negative Negative [facility] Comment on above: Testing for SARS-CoV -2 by RT-PCR This test was developed and its performance characteristics determined by [employer] ([employer] and validated at the [facility]. This test has not been FDA cleared [...] Basophils Auto (Bld) [#/Vol] Ordered By: Raul uQan on 10-06-2021 Basophils (Bld) [#/Vol] 0.0 10*3/uL 0.0-0.2 [facility] Basophils/100 WBC Auto (Bld) Ordered By: Raul Quan on 10-06-2021 Basophils/100 WBC (Bld) 0.7 % . [facility] Blood hemoglobin measurement (mass/volume)Ordered By: Raul Quan on 10-06-2021 Hemoglobin (Bld) [Mass/Vol] 13.1 g/dL 13.0-17.0 [facility] Blood leukocytes automated c ount (number/volume)Ordered By: Raul Quan on 10-06-2021 WBC (Bld) [#/Vol] 5.2 10*3/uL 4.5-11.0 [facility] Creatinine and Glomerular fi ltration rate.predicted panel (S/P/Bld)Ordered By: Raul Quan on 10-06-2021 Creatinine [Mass/Vol] 0.98 mg/dL 0.64-1.27 [facility] Eosinophils Auto (Bld) [#/Vo l]Ordered By: Raul Quan on 10-06-2021 Eosinophils (Bld) [#/Vol] 0.1 10*3/uL 0.0-0.45 [facility] Eosinophils/100 WBC Auto (Bl d)Ordered By: Raul Qaun on 10-06-2021 Eosinophils/100 WBC (Bld) 1.3 % . [facility] Erythrocyte distribution wid th Auto (RBC) [Ratio]Ordered By: Raul Quan on 10-06-2021 Erythrocyte distribution width (RBC) [Ratio] 13.3 % 12.0-14.8 [facility] Estimated glomerular filtrat ion rate (GFR) non- AmericanOrdered By: Raul Quan on 10-06-2021 GFR/1.73 sq M.predicted among non-blacks MDRD (S/P/Bld) [Vol rate/Area] > 60 mL/Min [facility] Hematocrit Auto (Bld) [Volum e fraction]Ordered By: Raul Quan on 10-06-2021 Hematocrit (Bld) [Volume fraction] 40.4 % 38.8-50.0 [facility] - Hematology and Cell countsOrdered By: Raul Quan on 10-06-2021 Nucleated RBC/100 WBC (Bld) [Ratio] 0.0 % 0-0.5 [facility] Lymphocytes Auto (Bld) [#/Vo l]Ordered By: Raul Quan on 10-06-2021 Lymphocytes (Bld) [#/Vol] 1.0 10*3/uL 1.00-4.8 [facility] Lymphocytes/100 WBC Auto (Bl d)Ordered By: Raul Quan on 10-06-2021 Lymphocytes/100 WBC (Bld) 18.4 % . [facility] MCH Auto (RBC) [Entitic mass ]Ordered By: Raul Quan on 10-06-2021 MCH (RBC) [Entitic mass] 30.9 pg 27.5-35.2 [facility] MCHC Auto (RBC) [Mass/Vol]Or dered By: Raul Quan on 10-06-2021 MCHC (RBC) [Mass/Vol] 32.5 g/dL 32.5-35.6 [facility] MCV Auto (RBC) [Entitic vol] Ordered By: Raul Quan on 10-06-2021 MCV (RBC) [Entitic vol] 95.2 fL 83.5-101 [facility] Monocytes Auto (Bld) [#/Vol] Ordered By: Raul Quan on 10-06-2021 Monocytes (Bld) [#/Vol] 0.6 10*3/uL 0.0-0.8 [facility] Monocytes/100 WBC Auto (Bld) Ordered By: Raul Quan on 10-06-2021 Monocytes/100 WBC (Bld) 12.0 % . [facility] Neutrophils Auto (Bld) [#/Vo l]Ordered By: Raul Quan on 10-06-2021 Neutrophils (Bld) [#/Vol] 3.5 10*3/uL 1.8-7.7 [facility] Neutrophils/100 WBC Auto (Bl d)Ordered By: Raul Quan on 10-06-2021 Neutrophils/100 WBC (Bld) 67.6 % . [facility] No Panel InformationOrdered By: Raul Quan on 10-06-2021 Estimated GFR () > 60 mL/Min [facility] Comment on above: GFR estimated refere nce range: According to KDOQI guidelines, <60 ml/min/1.73m2 is sufficient to diagnose a patient with chronic kidney disease. Pharmacy Creatinine Clearance (Chem N/A [facility] Platelet mean volume Auto (B ld) [Entitic vol]Ordered By: Raul Quan on 10-06-2021 Platelet mean volume (Bld) [Entitic vol] 8.1 fL 6.6-10.1 [facility] Platelets Auto (Bld) [#/Vol] Ordered By: Raul Quan on 10-06-2021 Platelets (Bld) [#/Vol] 185 10*3/uL 150-450 [facility] RBC Auto (Bld) [#/Vol]Ordere d By: Raul Quan on 10-06-2021 RBC (Bld) [#/Vol] 4.25 10*6/uL 3.90-5.60 [facility] Serum or plasma calcium richy urement (mass/volume)Ordered By: Raul Quan on 10-06-2021 Calcium [Mass/Vol] 9.0 mg/dL 8.2-10.2 [facility] Serum or plasma chloride young surement (moles/volume)Ordered By: Raul Quan on 10-06-2021 Chloride [Moles/Vol] 101 mmol/L 95-114 [facility] Serum or plasma glucose richy urement (mass/volume)Ordered By: Raul Quan on 10-06-2021 Glucose [Mass/Vol] 187 mg/dL 70-100 [facility] Comment on above: ADA recommended refe rence range Random Glucose Reference Range is dependent on time and content of last meal. Glucose of more than 200 mg/dL in a nonstressed, ambulatory subject supports the diagnosis of Diabetes Mellitus. Serum or plasma potassium me asurement (moles/volume)Ordered By: Raul Quan on 10-06-2021 Potassium [Moles/Vol] 4.0 mmol/L 3.5-5.1 [facility] Serum or plasma sodium measu rement (moles/volume)Ordered By: Raul Quan on 10-06-2021 Sodium [Moles/Vol] 135 mmol/L 136-146 [facility] Serum or plasma total carbon dioxide measurement (moles/volume)Ordered By: Raul Quan on 10-06-2021 CO2 [Moles/Vol] 25.1 mmol/L 22.0-30.0 [facility] Serum or plasma urea nitroge n measurement (mass/volume)Ordered By: Raul Quan on 10-06-2021 Urea nitrogen [Mass/Vol] 13 mg/dL 9- [facility] CBC AUTO DIFFon 09-22-2021 BASO # 0.0 103/ul Normal 0.0-0.1 [facility] Comment on above: Performed By: #### C BC #### [facility] [address] [place] [address] Dr. Jodi Oglesby Basophils/100 WBC (Bld) 0.3 % Normal 0.2-2.0 [facility] Comment on above: Performed By: #### C BC #### [facility] [address] [place] [address] Dr. Jodi Oglesby EO # 0.1 103/ul Normal 0.0-0.7 [facility] Comment on above: Performed By: #### C BC #### [facility] [address] [place] [address] Dr. Jodi Oglesby Eosinophils/100 WBC (Bld) 0.8 % Critically low 0.9-7.0 [facility] Comment on above: Performed By: #### C BC #### [facility] [address] [place] [address] Dr. Jodi Oglesby Erythrocyte distribution width (RBC) [Ratio] 12.5 % Normal 11.0-15.0 [facility] Comment on above: Performed By: #### C BC #### [facility] [address] [place] [address] Dr. Jodi Oglesby Hematocrit (Bld) [Volume fraction] 43.6 % Normal 42.0-54.0 [facility] Comment on above: Performed By: #### C BC #### [facility] [address] [place] [address] Dr. Jodi Oglesby Hemoglobin (Bld) [Mass/Vol] 14.1 g/dL Normal 14.0-18.0 [facility] Comment on above: Performed By: #### C BC #### [facility] [address] [place] [address] Dr. Jodi Oglesby IG # 0.03 10e3/ul Normal 0.00-0.03 [facility] Comment on above: Performed By: #### C BC #### [facility] [facility] [address] [place] [address] Dr. Jodi Oglesby IG % 0.3 % Normal 0.0-0.5 [facility] Comment on above: Performed By: #### C BC #### [facility] [address] [place] [address] Dr. Jodi Oglesby LYMPH # 1.5 103/ul Normal 1.2-3.8 [facility] Comment on above: Performed By: #### C BC #### [facility] [address] [place] [address] Dr. Jodi Oglesby Lymphocytes/100 WBC (Bld) 17.2 % Critically low 20.5-60.0 [facility] Comment on above: Performed By: #### C BC #### [facility] [address] [place] [address] Dr. Jodi Oglesby MANUAL DIFF REQ NO Normal [facility] Comment on above: Performed By: #### C BC #### [facility] [address] [place] [address] Dr. Jodi Oglesby MCH (RBC) [Entitic mass] 31.1 pg Normal 25.9-34.0 [facility] Comment on above: Performed By: #### C BC #### [facility] [address] [place] [address] Dr. Jodi Oglesby MCHC (RBC) [Mass/Vol] 32.3 g/dL Normal 29.9-35.2 [facility] Comment on above: Performed By: #### C BC #### [facility] [address] [address] [address] Jodi Oglesby MCV (RBC) [Entitic vol] 96.0 fL Critically high 80.0-94.0 [facility] Comment on above: Performed By: #### C BC #### [facility] [address] [address] [address] Jodi Oglesby MONO # 1.0 103/ul Critically high 0.3-0.8 [facility] Comment on above: Performed By: #### C BC #### [facility] [address] [place] [address] Dr. Jodi Oglesby Monocytes/100 WBC (Bld) 10.8 % Normal 1.7-12.0 [facility] Comment on above: Performed By: #### C BC #### [facility] [address] [place] [address] Dr. Jodi Oglesby NEUT # 6.2 103/ul Normal 1.4-6.5 [facility] Comment on above: Performed By: #### C BC #### [facility] [address] [place] [address] Dr. Jodi Oglesby Neutrophils/100 WBC (Bld) 70.6 % Normal 43.0-75.0 [facility] Comment on above: Performed By: #### C BC #### [facility] [address] [place] [address] Dr. Jodi Oglesby Platelet mean volume (Bld) [Entitic vol] 9.6 fL Normal 9.5-13.5 [facility] Comment on above: Performed By: #### C BC #### [facility] [address] [place] [address] Dr. Jodi Oglesby PLT 206 103/ul Normal 150-450 [facility] Comment on above: Performed By: #### C BC #### [facility] [address] [place] [address] Dr. Jodi Oglesby RBC 4.54 106/ul Critically low 4.70-6.10 [facility] Comment on above: Performed By: #### C BC #### [facility] [address] [address] [address] Jodi Oglesby WBC 8.8 103/ul Normal 4.0-11.0 [facility] Comment on above: Performed By: #### C BC #### [facility] [address] [address] [address] Jodi Oglesby PROF CHEM 8 (BAS METB)on Anion gap [Moles/Vol] 9.5 mmol/L Normal [facility] Comment on above: Performed By: #### B MP #### [facility] [address] [address] [address] Jodi Oglesby Calcium [Mass/Vol] 9.4 mg/dL Normal 8.5-10.1 [facility] Comment on above: Performed By: #### B MP #### [facility] [address] [place] [address] Dr. Jodi Oglesby Chloride [Moles/Vol] 100 mmol/L Normal 98-107 [facility] Comment on above: Performed By: #### B MP #### [facility] [address] [address] [address] Jodi Oglesby CO2 [Moles/Vol] 33.2 mmol/L Critically high 21.0-32.0 [facility] Comment on above: Performed By: #### B MP #### [facility] [address] [address] [address] Jodi Oglesby Creatinine [Mass/Vol] 0.99 mg/dL Normal 0.70-1.30 [facility] Comment on above: Performed By: #### B MP #### [facility] [address] [address] [address] Jodi Oglesby EGFR-AF GUATEMALAN >60 Normal >=60 [facility] Comment on above: Performed By: #### B MP #### [facility] [address] [address] [address] Jodi Oglesby EGFR-NON AF GUATEMALAN >60 Normal >=60 [facility] Comment on above: Performed By: #### B MP #### [facility] [address] [place], [place] [address] Dr. Jodi Oglesby Glucose [Mass/Vol] 109 mg/dL Critically high 74-106 [facility] Comment on above: Performed By: #### B MP #### [facility] [address] [place], [place] [address] Dr. Jodi Oglesby Potassium [Moles/Vol] 4.7 mmol/L Normal 3.5-5.1 [facility] Comment on above: Performed By: #### B MP #### [facility] [address] [address] [address] Jodi Oglesby Sodium [Moles/Vol] 138 mmol/L Normal 136-145 [facility] Comment on above: Performed By: #### B MP #### [facility] [address] [address] [address] Jodi Oglesby Urea nitrogen [Mass/Vol] 17.0 mg/dL Normal 7.0-18.0 [facility] Comment on above: Performed By: #### B MP #### [facility] [address] [address] [address] Jodi Oglesby Urea nitrogen/Creatinine [Mass ratio] 17.2 mg/mg Normal [facility] Comment on above: Performed By: #### B MP #### [facility] [address] [address] [address] Jodi Oglesby Creatinine (Bld) [Mass/Vol]O rdered By: Tamar Perea on 09-18-2021 Creatinine [Mass/Vol] 0.8 mg/dL 0.6-1.3 [facility] Comment on above: ER/ESD physician is notified/shown all ISTAT results. Critical values may be confirmed by laboratory testing if deemed necessary by ER attending doctor. No Panel InformationOrdered By: Tamar Perea on 09-18-2021 POC Estimated GFR > 60 [facility] Comment on above: GFR estimated refere nce range: According to KDOQI guidelines, <60 ml/min/1.73m2 is sufficient to diagnose a patient with chronic kidney disease. POC Estimated GFR Non- Amer > 60 [facility] CBC AUTO DIFFon 08-12-2021 BASO # 0.0 103/ul Normal 0.0-0.1 [facility] Comment on above: Performed By: #### C BC #### [facility] [address] [address] [address] Jodi Oglesby Basophils/100 WBC (Bld) 0.3 % Normal 0.2-2.0 [facility] Comment on above: Performed By: #### C BC #### [facility] [address] [address] [address] Jodi Oglesby EO # 0.1 103/ul Normal 0.0-0.7 [facility] Comment on above: Performed By: #### C BC #### [facility] [address] [place] [address] Dr. Jodi Oglesby Eosinophils/100 WBC (Bld) 1.8 % Normal 0.9-7.0 [facility] Comment on above: Performed By: #### C BC #### [facility] [address] [place] [address] Dr. Jodi Oglesby Erythrocyte distribution width (RBC) [Ratio] 12.6 % Normal 11.0-15.0 [facility] Comment on above: Performed By: #### C BC #### [facility] [address] [place] [address] Dr. Jodi Oglesby Hematocrit (Bld) [Volume fraction] 40.9 % Critically low 42.0-54.0 [facility] Comment on above: Performed By: #### C BC #### [facility] [address] [place] [address] Dr. Jodi Oglesby Hemoglobin (Bld) [Mass/Vol] 13.4 g/dL Critically low 14.0-18.0 [facility] Comment on above: Performed By: #### C BC #### [facility] [address] [place] [address] Dr. Jodi Oglesby IG # 0.03 10e3/ul Normal 0.00-0.03 [facility] Comment on above: Performed By: #### C BC #### [facility] [address] [place] [address] Dr. Jodi Oglesby IG % 0.4 % Normal 0.0-0.5 [facility] Comment on above: Performed By: #### C BC #### [facility] [address] [place] [address] Dr. Jodi Oglesby LYMPH # 1.4 103/ul Normal 1.2-3.8 [facility] Comment on above: Performed By: #### C BC #### [facility] [address] [place] [address] Dr. Jodi Oglesby Lymphocytes/100 WBC (Bld) 18.6 % Critically low 20.5-60.0 [facility] Comment on above: Performed By: #### C BC #### [facility] [address] [place] [address] Dr. Jodi Oglesby MCH (RBC) [Entitic mass] 31.5 pg Normal 25.9-34.0 [facility] Comment on above: Performed By: #### C BC #### [facility] [address] [place] [address] Dr. Jodi Oglesby MCHC (RBC) [Mass/Vol] 32.8 g/dL Normal 29.9-35.2 [facility] Comment on above: Performed By: #### C BC #### [facility] [address] [place] [address] Dr. Jodi Oglesby MCV (RBC) [Entitic vol] 96.0 fL Critically high 80.0-94.0 [facility] Comment on above: Performed By: #### C BC #### [facility] [address] [place] [address] Dr. Jodi Oglesby MONO # 0.7 103/ul Normal 0.3-0.8 [facility] Comment on above: Performed By: #### C BC #### [facility] [address] [place] [address] Dr. Jodi Oglesby Monocytes/100 WBC (Bld) 9.7 % Normal 1.7-12.0 [facility] Comment on above: Performed By: #### C BC #### [facility] [address] [place] [address] Dr. Jodi Oglesby NEUT # 5.1 103/ul Normal 1.4-6.5 [facility] Comment on above: Performed By: #### C BC #### [facility] [address] [place] [address] Dr. Jodi Oglesby Neutrophils/100 WBC (Bld) 69.2 % Normal 43.0-75.0 [facility] Comment on above: Performed By: #### C BC #### [facility] [address] [place] [address] Dr. Jodi Oglesby Platelet mean volume (Bld) [Entitic vol] 9.8 fL Normal 9.5-13.5 [facility] Comment on above: Performed By: #### C BC #### [facility] [address] [place] [address] Dr. Jodi Oglesby PLT 195 103/ul Normal 150-450 [facility] Comment on above: Performed By: #### C BC #### [facility] [address] [place] [address] Dr. Jodi Oglesby RBC 4.26 106/ul Critically low 4.70-6.10 [facility] Comment on above: Performed By: #### C BC #### [facility] [address] [place] [address] Dr. Jodi Oglesby WBC 7.4 103/ul Normal 4.0-11.0 [facility] Comment on above: Performed By: #### C BC #### [facility] [address] [place] [address] Dr. Jodi Oglesby ASHLEY - TSHon 08-12-2021 TSH 1.879 uIU/mL Normal 0.358-3.74 0 [facility] Comment on above: Performed By: #### D LULU DATBMP #### [facility] [address] [place] [address] Dr. Jodi Oglesby TSH RANGE SEE BELOW Normal [facility] Comment on above: Result Comment: <0.3 4 UIU/ml HYPERTHYROID 0.34-5.60 UIU/ml EUTHYROID >5.60 UIU/ml HYPOTHYROID Performed By: #### D LULU DATBMP #### [facility] [address] [place] [address] Dr. Jodi Oglesby ASHLEY- BMP WITH LIPIDon 2021 Anion gap [Moles/Vol] 11.4 mmol/L Normal [facility] Comment on above: Performed By: #### D ATTSH, DATBMP #### [facility] [address] [place] [address] Dr. Jodi Oglesby Calcium [Mass/Vol] 8.7 mg/dL Normal 8.5-10.1 [facility] Comment on above: Performed By: #### D ATTSH, DATBMP #### [facility] [address] [place] [address] Dr. Jodi Oglesby Chloride [Moles/Vol] 105 mmol/L Normal 98-107 [facility] Comment on above: Performed By: #### D ATTSH, DATBMP #### [facility] [address] [place] [address] Dr. Jodi Oglesby Cholesterol [Mass/Vol] 113 mg/dL Normal <=200 [facility] Comment on above: Performed By: #### D ATTSH, DATBMP #### [facility] [address] [place] [address] Dr. Jodi Oglesby Cholesterol in HDL [Mass/Vol] 47 mg/dL Normal 40-60 [facility] Comment on above: Performed By: #### D ATTSH, DATBMP #### [facility] [address] [place] [address] Dr. Jodi Oglesby Cholesterol in LDL [Mass/Vol] 58.0 mg/dL Normal [facility] Comment on above: Performed By: #### D ATTSH, DATBMP #### [facility] [address] [place] [address] Dr. Jodi Oglesby CO2 [Moles/Vol] 29.0 mmol/L Normal 21.0-32.0 [facility] Comment on above: Performed By: #### D ATTSH, DATBMP #### [facility] [address] [place] [address] Dr. Jodi Oglesby Creatinine [Mass/Vol] 0.99 mg/dL Normal 0.70-1.30 [facility] Comment on above: Performed By: #### D ATTKENDELL, DATBMP #### [facility] [address] [address] [address] Jodi Oglesby EGFR-AF GUATEMALAN >60 Normal >=60 [facility] Comment on above: Performed By: #### D ATTSH, DATBMP #### [facility] [address] [address] [address] Jodi Oglesby EGFR-NON AF GUATEMALAN >60 Normal >=60 [facility] Comment on above: Performed By: #### D ATTKENDELL, DATBMP #### [facility] [address] [address] [address] Jodi Oglesby Glucose [Mass/Vol] 116 mg/dL Critically high 74-106 [facility] Comment on above: Performed By: #### D ATTKENDELL, DATBMP #### [facility] [address] [address] [address] Jodi Oglesby HDL NORMAL > or = 60 mg/dl - LO W CARDIOVASCULAR RISK <40 mg/dl - HIGH CARDIOVASCULAR RISK Normal [facility] Comment on above: Performed By: #### D ATTKENDELL, DATBMP #### [facility] [address] [place] [address] Dr. Jodi Oglesby LDL CALC NORMAL SEE BELOW Normal [facility] Comment on above: Result Comment: <100 mg/dl OPTIMAL 100 - 129 mg/dl NEAR OR ABOVE OPTIMAL 130 - 159 mg/dl BORDERLINE HIGH 160 - 189 mg/dl HIGH >190 mg/dl VERY HIGH Performed By: #### D ATTSH, DATBMP #### [facility] [address] [address] [address] Jodi Oglesby Potassium [Moles/Vol] 4.4 mmol/L Normal 3.5-5.1 [facility] Comment on above: Performed By: #### D ATTSH, DATBMP #### [facility] [address] [address] [address] Jodi Oglesby Sodium [Moles/Vol] 141 mmol/L Normal 136-145 [facility] Comment on above: Performed By: #### D ATTSH, DATBMP #### [facility] [address] [address] [address] Jodi Oglesby Triglyceride [Mass/Vol] 40 mg/dL Normal <=150 [facility] Comment on above: Performed By: #### D ATTSH, DATBMP #### [facility] [address] [place] [address] Dr. Jodi Oglesby Urea nitrogen [Mass/Vol] 16.0 mg/dL Normal 7.0-18.0 [facility] Comment on above: Performed By: #### D ATTSH, DATBMP #### [facility] [address] [place] [address] Dr. Jodi Oglesby Urea nitrogen/Creatinine [Mass ratio] 16.2 mg/mg Normal [facility] Comment on above: Performed By: #### D ATTSH, DATBMP #### [facility] [address] [place] [address] Dr. Jodi Oglesby VLDL CALC 8.0 mg/dL Normal [facility] Comment on above: Performed By: #### D ATTKENDELL, DATBMP #### [facility] [address] [place] [address] Dr. Jodi Oglesby GLYCOHEMOGLOBIN A1Con 2021 ADA RECOMMENDATION SEE BELOW Normal [facility] Comment on above: Result Comment: ADA RECOMMENDED LIMIT 4.0 - 6.0 ADA THERAPEUTIC TARGET < 7.0 ACTION SUGGESTED > 7.0 Performed By: #### D ATA1C #### [facility] [address] [place] [address] Dr. Jodi Oglesby Glucose [Mass/Vol] 131 mg/dL Normal [facility] Comment on above: Performed By: #### D ATA1C #### [facility] [address] [place] [address] Dr. Jodi Oglesby HbA1c (Bld) [Mass fraction] 6.2 % Normal 4.5-6.2 [facility] Comment on above: Performed By: #### D ATA1C #### [facility] [address] [place] [address] Dr. Jodi Sheppard 12-11-2020 CNOV Office Visit ([facility]ASSMD ) -- CHICO BAKER ([id number]) 1940 M Date Time Provider Department 12/11/20 10:45 AM POWER CATHERINE During your visit today, we recorded the following information about you: Pulse Blood pressure Weight Height 60/minute 122/78 67.6 kg 1.702 m Power Catherine MD 12/11/2020 11:17 AM Signed [facility] OUTPATIENT VISIT DATE December 11, 2020 OUTPATIENT VISIT TYPE EST PRIMARY CARE PHYSICIAN: Shailesh Dunham ([facility]) [address] [place] [address] REFERRING PHYSICIAN Power Catherine [address] [facility] [address] CHIEF COMPLAINT: Patient presents with: Established Patient [...] therapy. ? 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 - nitroglycerin sublingual (NITROQUICK) 0.3 mg SL tablet (more content not included)... Normal [facility] 10-30-2020 CNPN Telephone (CHERRIED) -- CHICO BAKER ([id number]) 1940 M Date Time Provider Department 10/30/20 [...] [I71.4] Order(s):US ABD AORTA [facility] [[id number]] Order #: [id number] FUTURE Prescriptions as of 11/04/2020 - aspirin, [...] Status:Closed by SHERI MOLINA on 11/04/20 Normal [facility] Vital Signs Date Time Vital Sign Value Performing Clinician Facility 01-11-2024 11:02-0500 Body height 167.64 cm DO [employer] Work Phone: [facility] 01-11-2024 11:02-0500 Body mass index (BMI) [Ratio] 21.7 kg/m2 DO [employer] Work Phone: [facility] 01-11-2024 11:02-0500 Body temperature 97.8 [degF] DO [employer] Work Phone: [facility] 01-11-2024 11:02-0500 Body weight 61.23 kg DO [employer] Work Phone: [facility] 01-11-2024 11:02-0500 Diastolic blood pressure 60 mm[Hg] DO [employer] Work Phone: [facility] 01-11-2024 11:02-0500 Heart rate 60 /min DO [employer] Work Phone: [facility] 01-11-2024 11:02-0500 SaO2% (BldA) [Mass fraction] 96 % DO [employer] Work Phone: [facility] 01-11-2024 11:02-0500 Systolic blood pressure 122 mm[Hg] DO Shailesh Ball Work Phone: [facility] 12-22-2023 13:06-0400 Body height 170.18 cm DO Shailesh Ball Work Phone: [facility] 12-22-2023 13:06-0400 Body mass index (BMI) [Ratio] 21.2 kg/m2 DO Shailesh Ball Work Phone: [facility] 12-22-2023 13:06-0400 Body weight 61.34 kg DO Shailesh Ball Work Phone: [facility] 12-22-2023 13:06-0400 Diastolic blood pressure 80 mm[Hg] DO Shailesh Ball Work Phone: [facility] 12-22-2023 13:06-0400 Diastolic blood pressure 89 mm[Hg] DO Shailesh Ball Work Phone: [facility] 12-22-2023 13:06-0400 Heart rate 62 /min DO Shailesh Ball Work Phone: [facility] 12-22-2023 13:06-0400 Respiratory rate 12 /min DO Shailesh Ball Work Phone: [facility] 12-22-2023 13:06-0400 Systolic blood pressure 173 mm[Hg] DO Shailesh Ball Work Phone: [facility] 12-22-2023 13:06-0400 Systolic blood pressure 139 mm[Hg] DO Shailesh Ball Work Phone: [facility] 11-23-2023 10:05-0400 Body height 170.18 cm DO Shailesh Ball Work Phone: [facility] 11-23-2023 10:05-0400 Body mass index (BMI) [Ratio] 20.9 kg/m2 DO Shailesh Ball Work Phone: [facility] 11-23-2023 10:05-0400 Body weight 60.78 kg DO Shailesh Ball Work Phone: [facility] 11-23-2023 10:05-0400 Diastolic blood pressure 61 mm[Hg] DO Shailesh Ball Work Phone: [facility] 11-23-2023 10:05-0400 Heart rate 67 /min DO Shailesh Ball Work Phone: [facility] 11-23-2023 10:05-0400 Respiratory rate 12 /min DO Shailesh Ball Work Phone: [facility] 11-23-2023 10:05-0400 Systolic blood pressure 98 mm[Hg] DO Shailesh Ball Work Phone: [facility] 11-15-2023 10:21-0400 Body temperature 96.5 [degF] DO Shailesh Ball Work Phone: [facility] 11-15-2023 10:21-0400 Diastolic blood pressure 60 mm[Hg] DO Shailesh Ball Work Phone: [facility] 11-15-2023 10:21-0400 Heart rate 56 /min DO Shailesh Ball Work Phone: [facility] 11-15-2023 10:21-0400 SaO2% (BldA) [Mass fraction] 97 % DO Shailesh Ball Work Phone: [facility] 11-15-2023 10:21-0400 Systolic blood pressure 138 mm[Hg] DO Shailesh Ball Work Phone: [facility] 10-21-2023 09:08-0400 Body height 170.18 cm DO Shailesh Ball Work Phone: [facility] 10-21-2023 09:08-0400 Body mass index (BMI) [Ratio] 20.9 kg/m2 DO Shailesh Ball Work Phone: [facility] 10-21-2023 09:08-0400 Body weight 60.55 kg DO Shailesh Ball Work Phone: [facility] 10-21-2023 09:08-0400 Diastolic blood pressure 58 mm[Hg] DO Shailesh Ball Work Phone: [facility] 10-21-2023 09:08-0400 Heart rate 65 /min DO Shailesh Ball Work Phone: [facility] 10-21-2023 09:08-0400 Respiratory rate 12 /min DO Shailesh Ball Work Phone: [facility] 10-21-2023 09:08-0400 Systolic blood pressure 102 mm[Hg] DO Shailesh Ball Work Phone: [facility] 09-03-2023 08:49-0400 Body height 170.18 cm DO Shailesh Ball Work Phone: [facility] 09-03-2023 08:49-0400 Body mass index (BMI) [Ratio] 21.9 kg/m2 DO Shailesh Ball Work Phone: [facility] 09-03-2023 08:49-0400 Body weight 63.5 kg DO Shailesh Ball Work Phone: [facility] 09-03-2023 08:49-0400 Diastolic blood pressure 58 mm[Hg] DO Shailesh Ball Work Phone: [facility] 09-03-2023 08:49-0400 Heart rate 63 /min DO Shailesh Ball Work Phone: [facility] 09-03-2023 08:49-0400 Respiratory rate 18 /min DO Shailesh Ball Work Phone: [facility] 09-03-2023 08:49-0400 SaO2% (BldA) [Mass fraction] 97 % DO Shailesh Ball Work Phone: [facility] 09-03-2023 08:49-0400 Systolic blood pressure 110 mm[Hg] DO Shailesh Ball Work Phone: [facility] 08-27-2023 08:33-0400 Body height 170.18 cm DO Shailesh Ball Work Phone: [facility] 08-27-2023 08:33-0400 Body mass index (BMI) [Ratio] 21.7 kg/m2 DO Shailesh Ball Work Phone: [facility] 08-27-2023 08:33-0400 Body weight 62.76 kg DO Shailesh Ball Work Phone: [facility] 08-27-2023 08:33-0400 Diastolic blood pressure 65 mm[Hg] DO Shailesh Ball Work Phone: [facility] 08-27-2023 08:33-0400 Heart rate 64 /min DO Shailesh Ball Work Phone: [facility] 08-27-2023 08:33-0400 Respiratory rate 12 /min DO Shailesh Ball Work Phone: [facility] 08-27-2023 08:33-0400 Systolic blood pressure 132 mm[Hg] DO Shailesh Ball Work Phone: [facility] 08-19-2023 11:18-0400 Body height 170.18 cm DO Shailesh Ball Work Phone: [facility] 08-19-2023 11:18-0400 Body mass index (BMI) [Ratio] 21.9 kg/m2 DO Shailesh Ball Work Phone: [facility] 08-19-2023 11:18-0400 Body weight 63.5 kg DO Shailesh Ball Work Phone: [facility] 08-19-2023 11:18-0400 Diastolic blood pressure 56 mm[Hg] DO Shailesh Ball Work Phone: [facility] 08-19-2023 11:18-0400 Heart rate 60 /min DO Shailesh Ball Work Phone: [facility] 08-19-2023 11:18-0400 Respiratory rate 18 /min DO Shailesh Ball Work Phone: [facility] 08-19-2023 11:18-0400 SaO2% (BldA) [Mass fraction] 98 % DO Shailesh Ball Work Phone: [facility] 08-19-2023 11:18-0400 Systolic blood pressure 102 mm[Hg] DO Shailesh Ball Work Phone: [facility] 07-05-2023 10:23-0400 Body height 170.18 cm DO Shailesh Ball Work Phone: [facility] 07-05-2023 10:23-0400 Body mass index (BMI) [Ratio] 21.4 kg/m2 DO Shailesh Ball Work Phone: [facility] 07-05-2023 10:23-0400 Body temperature 97 [degF] DO Shailesh Ball Work Phone: [facility] 07-05-2023 10:23-0400 Body weight 62.14 kg DO Shailesh Ball Work Phone: [facility] 07-05-2023 10:23-0400 Diastolic blood pressure 48 mm[Hg] DO Shailesh Ball Work Phone: [facility] 07-05-2023 10:23-0400 Heart rate 60 /min DO Shailesh Ball Work Phone: [facility] 07-05-2023 10:23-0400 SaO2% (BldA) [Mass fraction] 97 % DO Shailesh Ball Work Phone: [facility] 07-05-2023 10:23-0400 Systolic blood pressure 96 mm[Hg] DO Shailesh Ball Work Phone: [facility] 06-22-2023 [id number] Body height 170.18 cm DO Shailesh Ball Work Phone: [facility] 06-22-2023 10:01-0400 Body mass index (BMI) [Ratio] 21.5 kg/m2 DO Shailesh Ball Work Phone: [facility] 06-22-2023 10:01-040 Body weight 62.36 kg DO Shailesh Ball Work Phone: [facility] 06-22-2023 10:01-0400 Diastolic blood pressure 69 mm[Hg] DO Shailesh Ball Work Phone: [facility] 06-22-2023 10:01-0400 Heart rate 64 /min DO Shailesh Ball Work Phone: [facility] 06-22-2023 10:01-0400 Respiratory rate 12 /min DO Shailesh Ball Work Phone: [facility] 06-22-2023 10:01-0400 Systolic blood pressure 95 mm[Hg] DO Shailesh Ball Work Phone: [facility] 05-04-2023 11:14-0500 Blood Pressure Location Ivelisse Lue [facility] 05-04-2023 11:14-0500 Diastolic blood pressure 46 mm[Hg] Ivelisse Lue [facility] 05-04-2023 11:14-0500 Heart rate 63 /min Ivelisse Lue [facility] 05-04-2023 11:14-0500 Systolic blood pressure 116 mm[Hg] Ivelisse Lue [facility] 04-14-2023 10:15-0500 Body height 170.18 cm Shailesh Ball Other [facility] [facility] [employer] Other 04-14-2023 10:15-0500 Body mass index (BMI) [Ratio] 21.64 kg/m2 Shailesh Ball Other [employer] [facility] Other 04-14-2023 10:15-0500 Body weight 62.69 kg Shailesh Ball Other [employer] [facility] [employer] Other 04-14-2023 10:15-0500 Diastolic blood pressure 58 mm[Hg] Shailesh Ball Other [employer] [facility] Other 04-14-2023 10:15-0500 Respiratory rate 12 /min Shailesh Ball Other [facility] [employer] Other 04-14-2023 10:15-0500 Systolic blood pressure 118 mm[Hg] Shailesh Ball Other [facility] Other 03-29-2023 10:00-0500 Body height 170.18 cm Shailesh Ball Other [facility] 03-29-2023 10:00-0500 Body mass index (BMI) [Ratio] 21.8 kg/m2 Shailesh Ball Other [facility] Other 03-29-2023 10:00-0500 Body weight 63.14 kg Shailesh Ball Other [facility] 03-29-2023 10:00-0500 Diastolic blood pressure 74 mm[Hg] Shailesh Ball Other [facility] 03-29-2023 10:00-0500 Respiratory rate 12 /min Shailesh Ball Other [facility] Other 03-29-2023 10:00-0500 Systolic blood pressure 132 mm[Hg] Shailesh Ball Other [facility] 01-13-2023 08:49-0500 Blood Pressure Location Ivelisse Lue [facility] 01-13-2023 08:49-0500 Diastolic blood pressure 74 mm[Hg] Ivelisse Lue [facility] 01-13-2023 08:49-0500 Heart rate 68 /min Ivelisse Lue [facility] 01-13-2023 08:49-0500 Respiratory rate 16 /min Ivelisse Lue [facility] 01-13-2023 08:49-0500 Systolic blood pressure 156 mm[Hg] Ivelisse Lue [facility] 11-10-2022 10:30-0400 Body height 170.18 cm Raul Quan Other [employer] Other 11-10-2022 10:30-0400 Body mass index (BMI) [Ratio] 20.99 kg/m2 Raul Quan Other [employer] Other 11-10-2022 10:30-0400 Body temperature 97.8 [degF] Raul Quan Other [employer] Other 11-10-2022 10:30-0400 Body weight 60.78 kg Raul Quan Other [employer] Other 11-10-2022 10:30-0400 Diastolic blood pressure 64 mm[Hg] Raul Quan Other [employer] Other 11-10-2022 10:30-0400 SaO2% (BldA) [Mass fraction] 98 % Raul Quan Other [employer] Other 11-10-2022 10:30-0400 Systolic blood pressure 110 mm[Hg] Raul Lawrencerejakub Other [employer] Other 10-07-2022 08:49-0400 Blood Pressure Location Ivelisse Lue [facility] 10-07-2022 08:49-0400 Diastolic blood pressure 74 mm[Hg] Ivelisse Lue [facility] 10-07-2022 08:49-0400 Heart rate 75 /min Ivelisse Lue [facility] 10-07-2022 08:49-0400 Systolic blood pressure 139 mm[Hg] Ivelisse Lue [facility] 08-04-2022 11:15-0400 Body height 170.18 cm Raul Quan Other [facility] [employer] Other 08-04-2022 11:15-0400 Body mass index (BMI) [Ratio] 21.77 kg/m2 Raul Quan Other [employer] Other 08-04-2022 11:15-0400 Body temperature 97.8 [degF] Raul Quan Other [employer] Other 08-04-2022 11:15-0400 Body weight 63.05 kg Raul Quan Other [employer] Other 08-04-2022 11:15-0400 Diastolic blood pressure 68 mm[Hg] Raul Quan Other [employer] Other 08-04-2022 11:15-0400 SaO2% (BldA) [Mass fraction] 97 % Raul Quan Other [employer] Other 08-04-2022 11:15-0400 Systolic blood pressure 108 mm[Hg] Raul Quan Other [employer] Other 07-09-2022 08:00-0400 Body temperature 98.6 [degF] DO Shailesh Ball Work Phone: [facility] 07-09-2022 08:00-0400 Diastolic blood pressure 72 mm[Hg] DO Shailesh Ball Work Phone: [facility] 07-09-2022 08:00-0400 Heart rate 69 /min DO Shailesh Ball Work Phone: [facility] 07-09-2022 08:00-0400 Respiratory rate 16 /min DO Shailesh Ball Work Phone: [facility] 07-09-2022 08:00-0400 SaO2% (BldA) [Mass fraction] 97 % DO Shailesh Ball Work Phone: [facility] 07-09-2022 08:00-0400 Systolic blood pressure 154 mm[Hg] DO Shailesh Ball Work Phone: [facility] 07-09-2022 06:00-0400 Body weight 65.8 kg DO Shailesh Ball Work Phone: [facility] 07-08-2022 10:52-0400 Inhaled oxygen flow rate 8 L/min DO Shailesh Ball Work Phone: [facility] 07-08-2022 08:34-0400 Body height 167.64 cm DO Shailesh Ball Work Phone: [facility] 07-08-2022 08:34-0400 Body mass index (BMI) [Ratio] 22.7 kg/m2 DO Shailesh Ball Work Phone: [facility] 06-24-2022 09:27-0400 Blood Pressure Location Ivelisse Lue [facility] 06-24-2022 09:27-0400 Diastolic blood pressure 75 mm[Hg] Ivelisse Lue [facility] 06-24-2022 09:27-0400 Heart rate 66 /min Ivelisse Lue [facility] 06-24-2022 09:27-0400 Respiratory rate 16 /min Ivelisse Lue [facility] 06-24-2022 09:27-0400 Systolic blood pressure 120 mm[Hg] Ivelisse Lue [facility] 05-21-2022 09:30-0400 Body height 170.18 cm Shailesh Ball Other [facility] Other 05-21-2022 09:30-0400 Body mass index (BMI) [Ratio] 21.8 kg/m2 Shailesh Ball Other [employer] Other 05-21-2022 09:30-0400 Body weight 63.14 kg Shailesh Ball Other [employer] Other 05-21-2022 09:30-0400 Diastolic blood pressure 73 mm[Hg] Shailesh Ball Other [employer] Other 05-21-2022 09:30-0400 Respiratory rate 12 /min Shailesh Ball Other [employer] Other 05-21-2022 09:30-0400 Systolic blood pressure 121 mm[Hg] Shailesh Ball Other [employer] Other 05-19-2022 11:00-0400 Body height 170.18 cm Tamar Perea Other [employer] Other 05-19-2022 11:00-0400 Body mass index (BMI) [Ratio] 22.02 kg/m2 Tamar Perea Other [employer] Other 05-19-2022 11:00-0400 Body temperature 97.5 [degF] Tamar Perea Other [facility] Other 05-19-2022 11:00-0400 Body weight 63.78 kg Tamar Perea Other [employer] Other 05-19-2022 11:00-0400 Diastolic blood pressure 76 mm[Hg] Tamar Perea Other [employer] Other 05-19-2022 11:00-0400 SaO2% (BldA) [Mass fraction] 98 % Tamar Perea Other [facility] Other 05-19-2022 11:00-0400 Systolic blood pressure 148 mm[Hg] Tamar Perea Other [place] [employer] Other 04-15-2022 08:57-0500 Blood Pressure Location Ivelisse Lue [facility] 04-15-2022 08:57-0500 Diastolic blood pressure 78 mm[Hg] Ivelisse Lue [facility] 04-15-2022 08:57-0500 Heart rate 68 /min Ivelisse Lue [facility] 04-15-2022 08:57-0500 Respiratory rate 16 /min Ivelisse Lue [facility] 04-15-2022 08:57-0500 Systolic blood pressure 122 mm[Hg] Ivelisse Lue [facility] 03-10-2022 11:30-0500 Body height 170.18 cm Raul Quan Other [employer] Other 03-10-2022 11:30-0500 Body mass index (BMI) [Ratio] 21.2 kg/m2 Raul Avelina Other [employer] Other 03-10-2022 11:30-0500 Body temperature 97.8 [degF] Raul Quan Other [employer] Other 03-10-2022 11:30-0500 Body weight 61.42 kg Raul Avelina Other [employer] Other 03-10-2022 11:30-0500 Diastolic blood pressure 64 mm[Hg] Raul Quan Other [employer] Other 03-10-2022 11:30-0500 SaO2% (BldA) [Mass fraction] 98 % Raul Avelina Other [employer] Other 03-10-2022 11:30-0500 Systolic blood pressure 108 mm[Hg] Raul Quan Other [employer] Other 02-25-2022 11:09-0500 Blood Pressure Location ADALGISA ANTOINE [facility] 02-25-2022 11:09-0500 Diastolic blood pressure 63 mm[Hg] ADALGISA BUSHRY [facility] 02-25-2022 11:09-0500 Heart rate 64 /min ADALGISA ANTOINE [facility] 02-25-2022 11:09-0500 Systolic blood pressure 105 mm[Hg] ADALGISA ANTOINE [facility] 02-18-2022 14:12-0500 Blood Pressure Location ADALGISA ARASH [facility] 02-18-2022 14:12-0500 Diastolic blood pressure 83 mm[Hg] ADALGISA ARASH [facility] 02-18-2022 14:12-0500 Heart rate 70 /min ADALGISA ARASH [facility] 02-18-2022 14:12-0500 Systolic blood pressure 142 mm[Hg] ADALGISA ARASH [facility] 02-11-2022 08:42-0500 Blood Pressure Location Ivelisse Lue [facility] 02-11-2022 08:42-0500 Diastolic blood pressure 73 mm[Hg] Ivelisse Lue [facility] 02-11-2022 08:42-0500 Heart rate 68 /min Ivelisse Lue [facility] 02-11-2022 08:42-0500 Respiratory rate 16 /min Ivelisse Lue [facility] 02-11-2022 08:42-0500 Systolic blood pressure 150 mm[Hg] Ivelisse Lue [facility] 02-05-2022 08:00-0500 Body temperature 99.1 [degF] DO Shailesh Ball Work Phone: [facility] 02-05-2022 08:00-0500 Diastolic blood pressure 76 mm[Hg] DO Shailesh Ball Work Phone: [facility] 02-05-2022 08:00-0500 Heart rate 78 /min DO Shailesh Ball Work Phone: [facility] 02-05-2022 08:00-0500 Respiratory rate 16 /min DO Shailesh Ball Work Phone: [facility] 02-05-2022 08:00-0500 SaO2% (BldA) [Mass fraction] 95 % DO Shailesh Ball Work Phone: [facility] 02-05-2022 08:00-0500 Systolic blood pressure 168 mm[Hg] DO Shailesh Ball Work Phone: [facility] 02-05-2022 03:21-0500 Body weight 64.1 kg DO Shailesh Ball Work Phone: [facility] 02-04-2022 11:43-0500 Inhaled oxygen flow rate 6 L/min DO Shailesh Ball Work Phone: [facility] 02-04-2022 09:31-0500 Body height 167.64 cm DO Shailesh Ball Work Phone: [facility] 02-04-2022 09:31-0500 Body mass index (BMI) [Ratio] 23.3 kg/m2 DO Shailesh Ball Work Phone: [facility] 01-20-2022 12:30-0500 Body height 170.18 cm Raul Quan Other [employer] Other 01-20-2022 12:30-0500 Body mass index (BMI) [Ratio] 21.92 kg/m2 Raul Quan Other [employer] Other 01-20-2022 12:30-0500 Body temperature 97.7 [degF] Raul Quan Other [employer] Other 01-20-2022 12:30-0500 Body weight 63.5 kg Raul Buehrer Other [employer] Other 01-20-2022 12:30-0500 Diastolic blood pressure 64 mm[Hg] Raul Buehrer Other [employer] Other 01-20-2022 12:30-0500 SaO2% (BldA) [Mass fraction] 99 % Raul Buehrer Other [employer] Other 01-20-2022 12:30-0500 Systolic blood pressure 116 mm[Hg] Raul Buehrer Other [employer] Other 01-05-2022 11:15-0400 Body height 170.18 cm Raul Buehrer Other [employer] Other 01-05-2022 11:15-0400 Body mass index (BMI) [Ratio] 21.92 kg/m2 Raul Buehrer Other [employer] Other 01-05-2022 11:15-0400 Body temperature 96 [degF] Raul Buehrer Other [employer] Other 01-05-2022 11:15-0400 Body weight 63.5 kg Raul Buehrer Other [employer] Other 01-05-2022 11:15-0400 Diastolic blood pressure 58 mm[Hg] Raul Buehrer Other [employer] Other 01-05-2022 11:15-0400 SaO2% (BldA) [Mass fraction] 99 % Raul Buehrer Other [employer] Other 01-05-2022 11:15-0400 Systolic blood pressure 100 mm[Hg] Raul Dovernakul Other [employer] Other 11-24-2021 12:30-0400 Body height 170.18 cm Tamar Perea Other [employer] Other 11-24-2021 12:30-0400 Body mass index (BMI) [Ratio] 21.92 kg/m2 Tamar Martinezjerardokhalida Other [employer] Other 11-24-2021 12:30-0400 Body temperature 97.5 [degF] Tamar Martinezjerardokhalida Other [employer] Other 11-24-2021 12:30-0400 Body weight 63.5 kg Tamar Perea Other [employer] Other 11-24-2021 12:30-0400 Diastolic blood pressure 50 mm[Hg] Tamar Martinezjerardokhalida Other [employer] Other 11-24-2021 12:30-0400 SaO2% (BldA) [Mass fraction] 98 % Tamar Martinezjerardokhalida Other [employer] Other 11-24-2021 12:30-0400 Systolic blood pressure 96 mm[Hg] Tamar Martinezmoy Other [employer] Other 10-21-2021 07:30-0400 50 1 Shailesh Dunham Work Phone: [place] [id number] [place] Work Phone: Comment on above: [id number] 10-15-2021 08:27-0400 Body height 167.64 cm DO Shailesh Ball Work Phone: [facility] 10-15-2021 08:27-0400 Body temperature 97.7 [degF] DO Shailesh Ball Work Phone: [facility] 10-15-2021 08:27-0400 Body weight 66 kg DO Shailesh Ball Work Phone: [facility] 10-15-2021 08:27-0400 Diastolic blood pressure 75 mm[Hg] DO Shailesh Ball Work Phone: [facility] 10-15-2021 08:27-0400 Heart rate 73 /min DO Shailesh Ball Work Phone: [facility] 10-15-2021 08:27-0400 Respiratory rate 16 /min DO Shailesh Ball Work Phone: [facility] 10-15-2021 08:27-0400 SaO2% (BldA) [Mass fraction] 97 % DO Shailesh Ball Work Phone: [facility] 10-15-2021 08:27-0400 Systolic blood pressure 143 mm[Hg] DO Shailesh Ball Work Phone: [facility] 09-30-2021 13:30-0400 Body height 170.18 cm Tamar Martinezmoy Other [employer] Other 09-30-2021 13:30-0400 Body mass index (BMI) [Ratio] 24.27 kg/m2 Tamar Martinezmoy Other [employer] Other 09-30-2021 13:30-0400 Body temperature 97.4 [degF] Tamar Martinezmoy Other [employer] Other 09-30-2021 13:30-0400 Body weight 70.31 kg Tamar Brit Other [employer] Other 09-30-2021 13:30-0400 Diastolic blood pressure 70 mm[Hg] Tamar Perea Other [employer] Other 09-30-2021 13:30-0400 SaO2% (BldA) [Mass fraction] 98 % Tamar Perea Other [employer] Other 09-30-2021 13:30-0400 Systolic blood pressure 140 mm[Hg] Tamar Perea Other [employer] Other 09-15-2021 11:00-0400 Body height 170.18 cm Tamar Perea Other [employer] Other 09-15-2021 11:00-0400 Body mass index (BMI) [Ratio] 24.27 kg/m2 Tamar Perea Other [employer] Other 09-15-2021 11:00-0400 Body temperature 96.4 [degF] Tamar Perea Other [employer] Other 09-15-2021 11:00-0400 Body weight 70.31 kg Tamar Perea Other [employer] Other 09-15-2021 11:00-0400 Diastolic blood pressure 72 mm[Hg] Tamar Perea Other [employer] Other 09-15-2021 11:00-0400 SaO2% (BldA) [Mass fraction] 98 % Tamar Perea Other [employer] Other 09-15-2021 11:00-0400 Systolic blood pressure 138 mm[Hg] Tamar Perea Other [employer] Other 07-28-2021 10:45-0400 Body height 170.18 cm Raul Osoriojakub Other [employer] Other 07-28-2021 10:45-0400 Body mass index (BMI) [Ratio] 24.27 kg/m2 Raul Melindarejakub Other [employer] Other 07-28-2021 10:45-0400 Body temperature 96.6 [degF] Raul Quan Other [employer] Other 07-28-2021 10:45-0400 Body weight 70.31 kg Raul Avelina Other [employer] Other 07-28-2021 10:45-0400 Diastolic blood pressure 78 mm[Hg] Raul Quan Other [employer] Other 07-28-2021 10:45-0400 SaO2% (BldA) [Mass fraction] 98 % Raul Quan Other [employer] Other 07-28-2021 10:45-0400 Systolic blood pressure 190 mm[Hg] Raul Quan Other [employer] Other Encounters Encounter Date Encounter Type Care Provider Facility Start: 01-19-2024 End: 01-19-2024 ambulatory AMBER BRYANT [facility] Start: 01-18-2024 End: 01-18-2024 ambulatory CLIFTON CERDA [facility] Start: 01-11-2024 End: 01-11-2024 ambulatory DO Shailesh Ball Work Phone: [facility] Work Phone: Start: 01-11-2024 End: 01-11-2024 Patient encounter procedure DO Shailesh Ball Work Phone: [facility] Physician [facility] Work Phone: Start: 12-22-2023 End: 12-22-2023 ambulatory DO Shailesh Ball Work Phone: [facility] Work Phone: Start: 12-22-2023 End: 12-22-2023 Patient encounter procedure DO Shailesh Ball Work Phone: [facility] Phys[facility] Work Phone: Start: 12-17-2023 Non-patient / Non-visit DO Ryder yanna Ball Work Phone: [facility] Work Phone: Start: 11-23-2023 Patient encounter procedure DO Shailesh Ball Work Phone: [facility] Start: 11-23-2023 End: 11-23-2023 ambulatory DO Shailesh Ball Work Phone: [facility] Work Phone: Start: 11-23-2023 End: 11-23-2023 Patient encounter procedure DO Shailesh Ball Work Phone: [facility] Phys[facility] Work Phone: Start: 11-15-2023 End: 11-15-2023 ambulatory DO Shailesh Ball Work Phone: [facility] Work Phone: Start: 11-15-2023 End: 11-15-2023 Patient encounter procedure DO Shailesh Ball Work Phone: [facility] Physician [facility] Work Phone: Start: 11-09-2023 Non-patient / Non-visit DO Ryder yanna Ball Work Phone: [facility] Work Phone: Start: 10-27-2023 End: 10-27-2023 ambulatory AMBER BRYANT [facility] Start: 10-26-2023 Non-patient / Non-visit DO Ryder yanna Ball Work Phone: [facility] Work Phone: Start: 10-21-2023 End: 10-21-2023 ambulatory DO Shailesh Ball Work Phone: [facility] Work Phone: Start: 10-21-2023 End: 10-21-2023 Patient encounter procedure DO Shailesh Ball Work Phone: [facility] Work Phone: Start: 10-18-2023 Non-patient / Non-visit DO Ryder yanna Ball Work Phone: [facility] Work Phone: Start: 10-17-2023 Non-patient / Non-visit DO Ryder yanna Ball Work Phone: [facility] Work Phone: Start: 10-16-2023 End: 10-17-2023 Non-patient / Non-visit DO Shailesh Ball Work Phone: [facility] Work Phone: Start: 10-16-2023 Non-patient / Non-visit DO Ryder yanna Ball Work Phone: [facility] Work Phone: Start: 10-15-2023 End: 10-17-2023 Non-patient / Non-visit DO Shailesh Ball Work Phone: [facility] Work Phone: Start: 10-14-2023 End: 10-17-2023 Non-patient / Non-visit DO Shailesh Ball Work Phone: [facility] Work [facility] Start: 10-14-2023 Non-patient / Non-visit DO Ryder yanna Ball Work Phone: [facility] Physician [facility] Work Phone: Start: 10-12-2023 End: 10-13-2023 Evaluation and management of inpatient AMBER Melgoza [facility] Start: 10-06-2023 End: 10-06-2023 ambulatory AMBER Melgoza [facility] Start: 10-06-2023 End: 10-06-2023 ambulatory AMBER J [facility] Start: 09-17-2023 ambulatory AMBER HARRISPAMELA [facility] Start: 09-03-2023 End: 09-03-2023 ambulatory DO Shailesh Ball Work Phone: [facility] Work Phone: Start: 09-03-2023 End: 09-03-2023 Patient encounter procedure DO Shailesh Ball Work Phone: [facility] Physician [facility] Cardiology Work Phone: Start: 08-31-2023 End: 08-31-2023 Patient encounter procedure DO Shailesh Ball Work Phone: [facility] Work Phone: Start: 08-31-2023 End: 08-31-2023 ambulatory DO Shailesh Ball Work Phone: [facility] Work Phone: Start: 08-27-2023 End: 08-27-2023 ambulatory DO Shailesh Ball Work Phone: [facility] Work Phone: Start: 08-27-2023 End: 08-27-2023 Patient encounter procedure DO Shailesh Ball Work Phone: [facility] Physician [facility] Work Phone: Start: 08-19-2023 End: 08-19-2023 ambulatory DO Shailesh Ball Work Phone: [facility] Work Phone: Start: 08-19-2023 End: 08-19-2023 Patient encounter procedure DO Shailesh Ball Work Phone: [facility] Physician Group-[facility] Cardiology Work Phone: Start: 08-18-2023 End: 08-18-2023 ambulatory AMBER Melgoza [facility] Start: 08-18-2023 End: 08-18-2023 ambulatory AMBER Melgoza [facility] Start: 08-17-2023 End: 08-17-2023 [facility] Start: 08-13-2023 End: 08-13-2023 ambulatory MARIA EUGENIA Vazquez [facility] Start: 08-04-2023 End: 08-04-2023 ambulatory MARIA EUGENIA JoanSilvestre [facility] Start: 07-27-2023 End: 07-27-2023 ambulatory CLIFTON CORREA Not Available Start: 07-05-2023 End: 07-05-2023 ambulatory DO Shailesh Ball Work Phone: [facility] Work Phone: Start: 07-05-2023 End: 07-05-2023 Patient encounter procedure DO Shailesh Ball Work Phone: [facility] Physician Group-[facility] Vascular Surgery Work Phone: Start: 06-22-2023 End: 06-22-2023 ambulatory DO Shailesh Ball Work Phone: [facility] Work Phone: Start: 06-22-2023 End: 06-22-2023 Patient encounter procedure DO Shailesh Ball Work Phone: [facility]ician [facility] Work Phone: Start: 06-16-2023 End: 06-16-2023 Patient encounter procedure DO Shailesh Ball Work Phone: [facility] [place] Work Phone: Start: 06-16-2023 End: 06-16-2023 ambulatory DO Shailesh Dunham Work Phone: [facility] Work Phone: Start: 05-04-2023 End: 05-05-2023 ambulatory Ivelissenaseem Hassan Facility:[facility] Start: 05-04-2023 End: 05-04-2023 Lab Drop off Ivelisse Hassan [facility] Start: 05-04-2023 End: 05-04-2023 Patient encounter procedure Ivelisse Hassan [facility] Start: 04-28-2023 End: 04-29-2023 ambulatory Ivelissenaseem Hassan Facility:[id number] Start: 04-26-2023 Non-patient / Non-visit DO Ryder Dunham Work Phone: [facility] Work Phone: Start: 04-20-2023 Non-patient / Non-visit DO Ryder Dunham Work Phone: [facility] Work Phone: Start: 04-20-2023 Non-patient / Non-visit DO Ryder Dunham Work Phone: [facility]ly [facility] Physician [facility] OutPt Work Phone: Start: 04-14-2023 End: 04-14-2023 ambulatory Shailesh Duhnam Other [facility] Other Start: 04-14-2023 Encounter for other preprocedural examination Shailesh Dunham [facility] Start: 04-14-2023 Office outpatient vi sit 15 minutes Shailesh Dunham [facility] Start: 04-08-2023 End: 04-08-2023 ambulatory Shailesh Dunham Other [facility] Other Start: 04-08-2023 Telephone encounter Shailesh AYON [facility] Start: 04-05-2023 End: 04-05-2023 ambulatory Shailesh Dunham Other [employer] Other Start: 04-05-2023 Telephone encounter Shailesh AYON [facility] Start: 04-04-2023 End: 04-04-2023 ambulatory Raul Quan Other [facility] Other Start: 04-04-2023 Telephone encounter Raul Quan [facility] Start: 03-29-2023 End: 03-29-2023 ambulatory Shailesh Dunham Other [employer] Other Start: 03-29-2023 Transitional care ellen sarkar srvc 14 day discharge Shailesh Dunham [facility] Start: 03-29-2023 End: 03-29-2023 Patient encounter procedure DO Shailesh Dunham Work Phone: [facility] Physician Group- Start: 03-25-2023 End: 03-25-2023 ambulatory Raul Quan Other [employer] Other Start: 03-25-2023 Telephone encounter Raul Quan [facility] Start: 03-24-2023 End: 03-25-2023 ambulatory Ivelisse Hassan Facility:[id number] Start: 01-13-2023 End: 01-14-2023 ambulatory Ivelisse Hassan Facility:[facility] Start: 01-13-2023 End: 01-13-2023 Patient encounter procedure Ivelisse Hassan [facility] Start: 11-10-2022 Office outpatient vi sit 25 minutes Raul Quan [facility] Vascular Surgery Start: 11-10-2022 End: 11-10-2022 ambulatory DO Shailesh Dunham Work Phone: [employer] Other Start: 11-10-2022 End: 11-10-2022 Patient encounter procedure DO Shailesh Dunham Work Phone: [facility]-Ul[facility]ound [facility] Start: 10-07-2022 End: 10-08-2022 ambulatory Ivelisse Hassan Facility:[facility] Start: 10-07-2022 End: 10-07-2022 Patient encounter procedure Ivelisse Abdoul Hassan [facility] Start: 08-04-2022 End: 08-04-2022 ambulatory Raul Quan Other [employer] Other Start: 08-04-2022 Postop follow up vis it related to original px Raul Quan [facility] Start: 07-28-2022 End: 07-29-2022 ambulatory Ivelisse Hassan Facility:[facility] Start: 07-14-2022 ambulatory Ivelisse Hassan Facility:C [id number] Start: 07-09-2022 End: 07-09-2022 ambulatory Shailesh Dunham Other [employer] Other Start: 07-09-2022 Telephone encounter Shailesh AYON [facility] Start: 07-08-2022 End: 07-08-2022 ambulatory Shailesh Dunham Other [employer] Other Start: 07-08-2022 Telephone encounter Shailesh AYON [facility] Start: 07-08-2022 End: 07-09-2022 Evaluation and management of inpatient DO Shailesh Dunham Work Phone: [facility] [place] [facility] Work Phone: Start: 07-01-2022 End: 07-01-2022 ambulatory DO Shailesh Dunham Work Phone: [facility] Work Phone: Start: 07-01-2022 End: 07-01-2022 Patient encounter procedure DO Shailesh Dunham Work Phone: [facility] Work Phone: Start: 06-24-2022 End: 06-25-2022 ambulatory Ivelisse Hassan Facility:[facility] Start: 06-24-2022 End: 06-24-2022 Patient encounter procedure Ivelisse PorrasSilvestre Hymancaleb [facility] Start: 05-21-2022 End: 05-21-2022 ambulatory Shailesh Dunham Other [employer] Other Start: 05-21-2022 Patient encounter procedure Shailesh Dunham [facility] Start: 05-19-2022 End: 05-19-2022 ambulatory Tamar Perea Other [employer] Other Start: 05-19-2022 Follow-up encounter Tamar [facility] Start: 05-13-2022 End: 05-13-2022 ambulatory Raul Quan Other [employer] Other Start: 05-13-2022 Telephone encounter Raul Quan [facility] Start: 05-11-2022 End: 05-11-2022 ambulatory DO Shailesh Dunham Work Phone: [facility] Work Phone: Start: 05-11-2022 End: 05-11-2022 Patient encounter procedure DO Shailesh Dunham Work Phone: [facility]-CT Scan Main [place] Work Phone: Start: 04-23-2022 End: 04-23-2022 ambulatory Raul Quan Other [employer] Other Start: 04-23-2022 Telephone encounter Raul [facility]PH[facility] Start: 04-15-2022 End: 04-15-2022 Lab Drop off Ivelisse Hassan [facility] Start: 04-15-2022 End: 04-15-2022 Patient encounter procedure Ivelisse Hassan [facility] Start: 04-14-2022 End: 04-14-2022 ambulatory Shailesh Enrico Other [employer] Other Start: 04-14-2022 Telephone encounter Shailesh Dunham [facility] Start: 03-10-2022 End: 03-10-2022 ambulatory Raul Quan Other [employer] Other Start: 03-10-2022 Office outpatient vi sit 25 minutes Raul Quan [facility] Vascular Surgery Start: 02-25-2022 End: 02-25-2022 Patient encounter procedure ADALGISA ANTOINE [facility] Start: 02-18-2022 End: 02-18-2022 Patient encounter procedure ADALGISA ANTOINE [facility] Start: 02-11-2022 End: 02-11-2022 Lab Drop off Ivelisse Hassan [facility] Start: 02-11-2022 End: 02-11-2022 Patient encounter procedure Ivelisse Hassan [facility] Start: 02-10-2022 End: 02-11-2022 ambulatory IVELISSE AHSSAN . Facility:[facility] Start: 02-07-2022 Encounter for other preprocedural examination DR RAUL QUAN [facility] Start: 02-07-2022 Encounter for preprocedural laboratory examination DR RAUL QUAN [facility] Start: 02-04-2022 End: 02-05-2022 Evaluation and management of inpatient DO Shailesh Dunham Work Phone: [facility] Start: 02-02-2022 End: 02-03-[address] RAUL QUAN Facility:[facility] Start: 02-02-2022 End: 02-03-2022 Encounter for other preprocedural examination DR RAUL QUAN Facility:[facility] Start: 01-20-2022 Office outpatient vi sit 25 minutes Raul Quan [facility] Vascular Surgery Start: 01-20-2022 End: 01-20-2022 ambulatory DO Shailesh Dunham Work Phone: [employer] Other Start: 01-20-2022 End: 01-20-2022 Patient encounter procedure DO Shailesh Dunham Work Phone: [facility]-Ultrasound [facility] Start: 01-05-2022 End: 01-05-2022 ambulatory Raul Quan Other [employer] Other Start: 01-05-2022 Office outpatient vi sit 25 minutes Raul Quan [facility] Vascular Surgery Start: 12-08-2021 End: 12-09-[address] SHAILESH DUNHAM Facility:[facility] Start: 12-02-2021 End: 12-02-[address] SHAILESH DUNHAM Facility:[facility] Start: 11-24-2021 End: 11-24-2021 ambulatory Tamar Perea Other [employer] Other Start: 11-24-2021 Patient encounter procedure Tamar Perea [facility] Vascular Surgery Start: 11-11-2021 End: 11-11-[address] SHAILESH DUNHAM Facility:[facility] Start: 10-26-2021 End: 10-26-[address] SHAILESH DUNHAM Facility:[facility] Start: 10-21-2021 Patient encounter procedure Shailesh Dunham Work Phone: [facility] [address] [place] Work Phone: Start: 10-16-2021 Telephone encounter Judah Vivas MD Work Phone: [facility] [address] DO Work Phone: Start: 10-15-2021 End: 10-15-2021 Evaluation and management of inpatient DO Shailesh Dunham Work Phone: [facility] [place] [facility] Start: 10-13-2021 End: 10-13-2021 Patient encounter procedure DO Shailesh Dunham Work Phone: [facility]-Pre-Surgical Testing Start: 10-06-2021 End: 10-06-2021 Patient encounter procedure DO Shailesh Dunham Work Phone: [facility]-Pre-Surgical Testing Start: 09-30-2021 End: 09-30-2021 ambulatory Tamar Perea Other [employer] Other Start: 09-30-2021 Encounter for other preprocedural examination Tamar Perea [facility] Vascular Surgery Start: 09-30-2021 Follow-up encounter Tamar Livingston [facility] Start: 09-22-2021 End: 09-23-[address] SHAILESH DUNHAM Facility:[facility] Start: 09-18-2021 End: 09-18-2021 Patient encounter procedure DO Shailesh Dunham Work Phone: [facility]-CT Scan Main [place] Start: 09-15-2021 End: 09-15-2021 ambulatory Tamar Perea Other [employer] Other Start: 09-15-2021 Follow-up encounter Tamar [facility] Start: 08-27-2021 End: 08-27-2021 Patient encounter procedure DO [employer] Work Phone: [facility] Start: 08-12-2021 End: 08-13-2021 ambulatory NONE LISTED REQUEST Facility: Start: 07-28-2021 End: 07-28-2021 ambulatory Raul Quan Other [facility] Other Start: 07-28-2021 Office outpatient ne w 45 minutes Raul Quan [facility] Start: 06-13-2020 End: 06-13-2020 Patient encounter procedure Lisandra Sher Work Phone: [facility] Work Phone: Patient encounter status Judah Harrington MD Work Phone: [facility] [address] DO Work Phone: Procedures Date Procedure Procedure Detail Performing Clinician Start: 01-19-2024 Follow-up visit Follow-up AMBER BRYANT Start: 01-11-2024 US scan of aorta DO [employer] Work Phone: Start: 12-17-2023 E coli Shiga Toxin EIA DO Shailesh Ball Work Phone: Start: 12-17-2023 Salmonella/Shigella Screen DO [employer] Work Phone: Start: 11-15-2023 Doppler ultrasonography of bilateral carotid arteries DO Shailesh Ball Work Phone: Start: 06-16-2023 Computed tomography of abdomen and pelvis with contrast DO Shailesh Ball Work Phone: Start: 05-04-2023 Cystoscopic removal of ureteric stent Ivelisse Lue Start: 04-28-2023 Cystoscopic insertion of ureteric stent Ivelisse Lue Start: 11-10-2022 Doppler ultrasonography of bilateral carotid arteries DO Shailesh Ball Work Phone: Start: 07-28-2022 Cystourethroscopy with dilation of urethral stricture Ivelisse Lue Start: 07-08-2022 Insertion of carotid artery stent DO Ryder raines [employer] Phone: Start: 05-11-2022 Computed tomography angiography of abdominal and/or pelvic blood vessel DO Shailesh [employer] Phone: Start: 05-11-2022 CT angiography of head DO Shailesh [employer] Phone: Start: 05-11-2022 CT angiography of neck vessels DO Josué fischer [employer] Phone: Start: 02-10-2022 PSA screening IVELISSE HASSAN . Comment on above: Performed By: #### DATA1C #### [facility] [address] [place] [address] Dr. 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 Ivelisse Hassan Start: 02-04-2022 Endovascular repair of abdominal aortic aneurysm DO Shailesh [employer] Phone: Start: 01-20-2022 Doppler ultrasonography of bilateral carotid arteries DO Shailesh [employer] Phone: Start: 09-18-2021 Computed tomography angiography of abdominal and/or pelvic blood vessel DO Shailesh [employer] Phone: Start: 08-27-2021 US scan of aorta DO Shailesh [employer] Phone: Start: 08-27-2021 Doppler ultrasonography of bilateral carotid arteries DO Shailesh [employer] Phone: Start: 06-13-2020 Imm. administration COVID19 [employer] Work Phone: Start: 06-13-2020 SARS-CoV-2 vaccine, 0.5ml [employer] Work Phone: Start: 10-18-2019 Transurethral prostatectomy Ivelisse Hymane Start: 04-06-2019 Cystoscope, device (physical object) Ivelisse Lue Start: 10-06-2016 Colonoscopy Ivelisse Lue Comment on above: 2010 Arthroscopy of knee Ivelisse ellis Catheterization of left heart Ivelisse Hassan Esophagogastroduodenoscopy K britany Hassan Plan of Treatment Date Care Activity Detail Author Start: 09-01-2023 ambulatory Ambulatory Facility:[facility] Start: 08-19-2023 [facility] Start: 07-09-2022 [facility] Start: 07-08-2022 Hospital admission [facility] Start: 07-08-2022 Patient referral to dietitian [facility] Start: 02-05-2022 [facility] Start: 02-04-2022 [facility] Start: 02-04-2022 Hospital admission [facility] Start: 10-21-2021 STRESS NUC, Provider: SAL HHVI NUCLEAR 01,[id number], Status: Pen, Time: 7:30 AM STRESS NUC, Provider: [facility] HHVI NUCLEAR 01,[id number], Status: Pen, Time: 7:30 AM -[facility] [facility] DO Work Phone: Start: 10-15-2021 [facility] Work Phone: Start: 10-15-2021 OR Percutaneous EVAR AAA (Not Applicable) OR Percutaneous EVAR AAA (Not Applicable) [facility] Start: 10-15-2021 End: 10-15-2021 Evaluation and management of inpatient AAA (abdominal aortic aneurysm) [facility]-[address] [place] [address] Surgical Start: 10-13-2021 End: 10-13-2021 Patient encounter procedure Departed Clinical [facility] Testing Comprehensive metabo lic 2000 panel - Serum or Plasma [facility] Holter monitor study [facility] Patient Education [facility] Work Phone: Patient referral [facility] Work Phone: [facility] Heart limited [facility] Heart Transthoracic [facility] US Thoracic and abdo sebastian aorta [facility] US Thoracic and abdo sebastian aorta [facility] US Thoracic and abdo sebastian aorta [facility] US.doppler Carotid arteries - bilateral [facility] US.doppler Carotid arteries - bilateral [facility] US.doppler Carotid arteries - bilateral [facility] Immunizations Immunization Date Immunization Notes Care Provider David holloway 06-13-2020 [employer]ney [employer] Rodney COVID 19 Vaccine [facility] Comment on above: Note: Patient tolera shyann well. No signs or symptoms of adverse reactions. Patient waited a minimum of 15 minutes. NEGATED: Highlighted row has not occurred!01-13-2023 influenza virus vaccine, unspecified formulation Ivelisse Hassan [facility] Payers Date Payer Category Payer Self-pay [id number] 2020 Unknown [id number] 1959 Self-pay [id number] 1959 Unknown [id number] [id number] 1959 Unknown [id number] 1959 Unknown [id number] 1942 Unknown [id number] 2.16.84 0.1.250150.3.579.2.593 1942 Unknown [id number] 2.16.84 0.1.408294.3.579.2.593 1942 Unknown [id number] 2.16.84 0.1.185261.3.579.2.593 1942 Unknown [id number] 2.16.84 0.1.921942.3.579.2.593 1942 Unknown [id number] 2.16.84 0.1.568674.3.579.2.593 1942 Unknown [id number] 2.16.84 0.1.684522.3.579.2.593 1942 Unknown [id number] 2.16.84 0.1.452120.3.579.2.593 1942 Unknown [id number] 2.16.8 40.1.271275.3.579.2.727 1942 Unknown [id number] 2.16.8 40.1.433794.3.579.2.727 1942 Unknown [id number] 2.16.8 40.1.397313.3.579.2.727 1942 Unknown [id number] 2.16.8 40.1.717304.3.579.2.727 1942 Unknown [id number] 2.16.8 40.1.353938.3.579.2.727 1942 Unknown [id number] 2.16.8 40.1.859378.3.579.2.727 1942 Unknown [id number] 2.16.8 40.1.021480.3.579.2.727 1942 Unknown [id number] 2.16.8 40.1.724661.3.579.2.727 1942 Unknown [id number] 2.16.8 40.1.702778.3.579.2.727 1942 Unknown [id number] 2.16.84 0.1.700325.3.579.2.1259 Unknown Unknown [place] [id number] Unknown [id number] 2.16.84 0.1.895226.3.579.2.593 Unknown [id number] 2.16.8 40.1.515360.3.579.2.531 Unknown [id number] 2.16.8 40.1.664452.3.579.2.531 Unknown [id number] 2.16.8 40.1.957008.3.579.2.531 Unknown [id number] 2.16.8 40.1.652130.3.579.2.531 Unknown [id number] 2.16.8 40.1.428940.3.579.2.531 Social History Date Type Detail Facility Tobacco smoking status Unknown i f ever smoked [facility] Work Phone: Start: 03-08-1955 End: 03-08-1996 Sex Assigned At [facility] Start: 10-15-2021 End: 08-19-2023 Tobacco smoking status ILIS Ex-smoker (finding) [facility] Start: 1940 Sex Assigned At Male [facility] Tobacco smoking status Never [facility] Medical Equipment Procedure Code Equipment Code Equipment Origin al Text Equipment Identifier Dates Transcarotid artery revascularization (TCAR) Bare-metal carotid artery stent ()[id number] FDA Start: 07-08-2022 Transcarotid artery revascularization (TCAR) Bare-metal carotid artery stent ()[id number] FDA Start: 07-08-2022 Percutaneous endovascular repair of abdominal aortic aneurysm (AAA) Abdominal aorta endovascular stent-graft ()[id number] FDA Start: 02-04-2022 Percutaneous endovascular repair of abdominal aortic aneurysm (AAA) Abdominal aorta endovascular stent-graft ()[id number] FDA Start: 02-04-2022 Percutaneous endovascular repair of abdominal aortic aneurysm (AAA) Abdominal aorta endovascular stent-graft ()[id number] FDA Start: 02-04-2022 Goals Date Patient Goal Desired Activity /State Functional Status Date Assessment Result Facility 05-04-2023 Functional Status N/A [facility] 01-13-2023 Functional Status N/A [facility] 10-07-2022 Functional Status N/A [facility] 07-09-2022 Functional status Patient is Pro gressing Toward Baseline [facility] Work Phone: 06-24-2022 Functional Status N/A [facility] 04-15-2022 Functional Status N/A [facility] 02-25-2022 Functional Status N/A [facility] 02-18-2022 Functional Status N/A [facility] 02-11-2022 Functional Status N/A [facility] 02-05-2022 Functional status Patient at Baseline [facility] Work Phone: 10-15-2021 Functional status Patient at Baseline [facility] Work Phone: Mental Status Date Assessment Result Facility 07-09-2022 Cognitive function Cognitive Sta tus Patient is Progressing Toward Baseline [facility] Work Phone: 02-05-2022 Cognitive function Cognitive Sta tus Patient at Baseline [facility] Work Phone: 10-15-2021 Cognitive function Cognitive Sta tus Patient at Baseline [facility] Work Phone: Clinical Notes 04-18-2020 to 01-19-2024 Note Date & Type Note Facility 01-19-2024 Note SURGERY FOLLOWUP NOT E Amber Bryant MD, MHPE, FACS, FSSO Hepatobiliary, pancreatic, biliary surgery Surgical Oncology General and minimally invasive surgery Reason for visit: Postop PCP: Shailesh Dunham DO Chief Complaint: Postop History of Present Illness: Chico Baker is a 83 y.o. male who presents for follow-up after cholecystectomy Chico Baker is following laparoscopic robot-assisted cholecystectomy with partial liver [...] histology did not demonstrate evidence of malignancy. He then represented 3 days postop with atrial fibrillation rapid response to [facility]. He spontaneously converted and anticoagulation was begun. He is currently on Eliquis. His initial 3-day Holter monitor did not demonstrate further atrial fibrillation and therefore now he is on a 30-day monitor. Interval History: Overall he is doing well. He denies any abdominal pain, he denies nausea, vomiting. He does have a slight increased frequency of his bowel movements, which is not bothersome. He also complains of a bulge in the right groin. Home Meds: Current Outpatient Medications: apixaban (Eliquis) 2.5 mg tablet, Take 2.5 mg by mouth two times daily., Disp: , Rfl: aspirin 81 mg EC [...] Rfl: losartan (Cozaar) 50 mg tablet, Take 25 mg by mouth at bedtime., Disp: , Rfl: pravastatin (Pravachol) 40 mg tablet, Take 40 mg by mouth at bedtime., Disp: , Rfl: Relevant medical/surgical/family/social histories, medications, problem list and allergies reviewed and updated with patient during the office visit. Physical Exam Vital Signs: Blood pressure 165/79, pulse 62, temperature 36.4 ???C (97.5 ???F), temperature source Oral, height 1.676 m (5' 6 ), weight 62.1 kg (136 lb 12.8 oz), SpO2 100%. Admission Weight: Weight: 62.1 kg (136 lb 12.8 oz) Body mass index is 22.08 kg/m???. General: well, appearing, no acute distress. HENT: Sclera anicteric Cor: RRR, S1 S2, 3/6 systolic ejection murmur Pulmonary: normal respiratory effort. Abdomen: Soft, not distended, no tenderness, all laparoscopic incisions are well-healed Right groin: Large reducible nontender mass, consistent with hernia Neuro: alert and oriented. Lab Review 01/19/2024 Total bilirubin-0.7 Direct bilirubin 0.2 AST 13 ALT 12 Alkaline phosphatase 121 Assessment: Chico Baker is a 83 y.o.male status post robot-assisted cholecystectomy and partial liver resection for chronic cholecystitis. He is overall doing well. He now presents with a right inguinal hernia, which is asymptomatic at this time. I counseled him on observation given its asymptomatic nature. We also discussed if the hernia would become bothersome then surgical repair could be entertained at that time. We also discussed warning signs of hernia incarceration including a hard tender mass, with or without nausea and vomiting. These latter warning signs we discussed that he should report to the emergency room if any of these symptoms occur. He verbalized understanding. Plan: Patient counseled on signs and symptoms of hernia complication; observation at this time given asymptomatic nature Return to clinic as needed I spent 20 minutes in lvab-[id number]-[id number] evaluation, discussion, and counseling with the patient regarding the treatment plan and recommendations. Amber Bryant MD [facility] 01-18-2024 Note [facility] Electrophysiology Consult Note [facility] Cardiology - [facility] Reason for visit: Afib HPI: Chico Baker is a 83 y.o. year old with past medical history of aortic aneurysm s/p EVAR, carotid artery disease s/p carotid stents @[facility], underwent a robotic assisted cholecystectomy with partial liver resection on 10/12/2023 @[facility]. Subsequently the patient was noted to have postoperative atrial fibrillation and was admitted to the [facility] and spontaneously converted to sinus rhythm. He was started on Eliquis 2.5 mg twice daily and since then placed on Holter monitor. He used to see [facility] cardiology, but hasn't been seen since 2021. He denies chest pain, palpitations, and bleeding on Eliquis. He states he'd like to come off Eliquis if possible. His last creatinine check was normal. The 3-day Holter monitor did not reveal any atrial fibrillation but episode of nonsustained ventricular tachycardia. Patient was asymptomatic during these episodes. 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 COLONOSCOPY CYSTOSCOPY FEMUR FRACTURE SURGERY Right KIDNEY STONE SURGERY TRANSURETHRAL RESECTION OF PROSTATE VARICOSE VEIN SURGERY Left SH: Social Determinants of Health Tobacco Use: Medium Risk (01/18/2024) Patient History Smoking Tobacco Use: Former Smokeless Tobacco Use: Never Passive Exposure: Not on file Alcohol Use: Not on file Financial Resource Strain: Low Risk (10/12/2023) Overall Financial Resource Strain (CARDIA) Difficulty of Paying Living Expenses: Not very hard Food Insecurity: No Food Insecurity (10/12/2023) Hunger Vital Sign Worried About Running Out of Food in the Last Year: Never true Ran Out of Food in the Last Year: Not on file Transportation Needs: No Transportation Needs (10/12/2023) Transportation Lack of Transportation (Medical): No Lack of Transportation (Non-Medical): Not on file Physical Activity: Not on file Stress: Not on file Social Connections: Not on file Intimate Partner Violence: Unknown (10/27/2023) Humiliation, Afraid, Rape, and Kick questionnaire Fear of Current or Ex-Partner: No Emotionally Abused: Not on file Physically Abused: Not on file Sexually Abused: Not on file Depression: Not at risk (10/27/2023) PHQ-2 PHQ-2 Score: 0 Housing Stability: Low Risk (10/12/2023) Housing Stability Vital Sign Unable to Pay for Housing in the Last Year: Not on file Number of Places Lived in the Last Year: Not on file Unstable Housing in the Last Year: No Utilities: Not At Risk (10/12/2023) [facility] Utilities Threatened with loss of utilities: No Allergies: Allergies Allergen Reactions Shalini Inhibitors Hives and Unknown Other Reaction(s): Unknown Gadolinium-Containing Contrast Media Itching and Unknown Iodinated Contrast Media Hives Other Reaction(s): hives Iodine Unknown Tetanus And Diphtheria Toxoids Unknown Tetanus Immune Globulin Other Tetanus Vaccines And Toxoid Unknown and Other Weight: 59.9kg Visit Vitals BP 130/70 (BP Location: Right arm, Patient Position: Sitting) Pulse 58 Ht 1.676 m (5' 6 ) Wt 59.9 kg (132 lb) SpO2 97% BMI 21.31 kg/m??? Smoking Status Former BSA 1.67 m??? Meds: Current Outpatient Medications on File Prior to Visit Medication Sig Dispense Refill apixaban (Eliquis) 2.5 mg tablet Take 2.5 mg by mouth two times daily. aspirin 81 mg EC tablet Take 81 mg by mouth in the morning. carvedilol (Coreg) 25 mg tablet Take 1 tablet by mouth with breakfast and with evening meal. cholecalciferol (Vitamin D-3) 25 MCG (1000 UT) capsule in the morning and at bedtime. isosorbide mononitrate ER (Imdur) 30 mg 24 hr tablet Take 30 mg by mouth in the morning. losartan (Cozaar) 50 mg tablet Take 25 mg by mouth at bedtime. pravastatin (Pravachol) 40 mg tablet Take 40 mg by mouth at bedtime. [DISCONTINUED] acetaminophen (Tylenol) 500 mg tablet Take 1,000 mg by mouth every 6 (six) hours if needed. No current facility-administered medications on file prior to visit. ROS: Re (more content not included)... [facility] 10-27-2023 Note SURGERY POST-OPERATI VE NOTE Amber Bryant MD, MHPE, FACS, FSSO Hepatobiliary, pancreatic, biliary surgery Surgical Oncology General and minimally invasive surgery Reason for visit: Gallbladder polyp, status post laparoscopic robot-assisted cholecystectomy with partial liver resection PCP: Shailesh Ball, DO Chief Complaint: Gallbladder polyp History of [...] postop with atrial fibrillation rapid response to [facility]. He spontaneously converted and anticoagulation was [...] hepatic panel. I spent 20 minutes in swys-xk-lqlx evaluation, discussion, and counseling with the patient regarding the treatment plan and recommendations. Amber Bryant MD [facility] 10-13-2023 Note 10/13/23 1028 Admission Assessment [...] No Pharmacy Bedside Delivery Status Not Interested ([facility] [place]) Does the patient have a briefcase sewer assigned to them through their insurance? No [...] to return home no needs at discharge. [facility] 10-13-2023 Note HPB Surgery Attendin g [...] in approximately 2 weeks Amber Bryant MD [facility] 10-12-2023 Note Patient: Chico hidalgo Procedure Summary Date: 10/12/23 Room / Location: [facility] OPERATING ROOM 13 / [facility] Operating Room Anesthesia Start: 948 Anesthesia [...] per anesthesia protocol. No notable events documented. 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 Staffing Performed: resident/SENIOR TECHNICAL TRAINER/CAA and anesthesiologist Anesthesiologist: Kathi Lyons MD Resident/SENIOR TECHNICAL TRAINER: Marcial Alvarado MD Performed by: Marcial Alvarado MD Authorized by: Kathi Lyons MD [facility] 10-12-2023 Note Airway Date/Time: 10/12/2023 10:03 AM Urgency: elective Airway not difficult General Information and Staff Patient location during procedure: OR Resident/SENIOR TECHNICAL TRAINER/CAA: Marcial Alvarado MD Performed: resident/SENIOR TECHNICAL TRAINER/CAA Learner assisted: Michell Castillo MS4 Indications and [...] 21 Number of attempts at approach: 1 [facility] 10-06-2023 Note SURGERY FOLLOWUP NOT E [...] ???F), temperature so (more content not included)... [facility] 09-23-2023 Note Patient: Chico hidalgo Procedure Information Date/Time: 09/24/23729 Procedures: Robot-Assisted Cholecystectomy with Intraoperative Ultrasound and Possible Liver Resection, Lymph Node Dissection, Bile Duct Resection and Bilioenteric Anastomosis - Fortec U/S and AqueSysi BK Drop-In Probe#[id number] Location: [facility] OPERATING ROOM 13 / [facility] Operating Room Surgeons: Amber Bryant MD [...] resident and medical student. Additional Equipment Requests [facility] 08-18-2023 Note HEPATOBILIARY & PANC REAS [...] Smokeless tobacco: Never (more content not included)... [facility] 08-13-2023 Note The patient is a [...] fall with right femoral ORIF while playing [employer] Abdominal aortic stent Left carotid artery stent [...] of a gallbladder malignancy. Will send to [place] to see if the actual film from [...] bed and lymph node evaluation as well. [facility] 05-04-2023 Hospital Discharge instructions Patient Education [...] include: ?8 oz (237 mL) of milk, kixyosj-ojgxxfuniboa-lamti milk, and calcium-fortifiedfruit juice. Calcium-fortified means that [...] and [place] Islander chard. ?Peanuts. ?Potato chips, serbian fries, and baked potatoes with skin on. ?Nuts and nut products. ?Chocolate. If you regularly take a diuretic medicine, make sure to eat at least 1 or 2 servings of fruits or vegetables that are high in potassium each day. These include: ?Avocado. ?Banana. ?[place], prune, carrot, or tomato juice. ?Baked potato. [...] magnesium, fish oil, or vitamin B6. Take lyek-lxc-dxridht and prescription medicines only as told by [...] Casseroles. Pizza. Lasagna. Frozen meals. Potato chips. Irish fries. The items listed above may not [...] provider. Document Revised: 06/04/2022 Document Reviewed: 06/04/2022 [employer] Patient Education 2022 [place] [employer]. Follow Up Care 04/29/2023 08:42:17 With:Mo LEIJA, AKILAH Smith, URO Address: When:Within 4 Month(s) Comments:[facility] 04-14-2023 Evaluation note Encounter Date Diagnosis [...] this time and surgery could be scheduled. [facility] Other 02-07-2024 Evaluation note* Encounter Date Diagnosis [...] control to proceed with his next procedure. [facility] Other 02-01-2024 Evaluation note* Encounter Date Diagnosis Assessment Notes Treatment Notes Treatment Clinical Notes Apr, Primary hypertension (ICD-10 - I10) [facility] Other 01-29-2024 Evaluation note* Encounter Date Diagnosis Assessment Notes Treatment Notes Treatment Clinical Notes Mar, Primary hypertension (ICD-10 - I10) [facility] Other 01-28-2024 Evaluation note* Encounter Date Diagnosis Assessment Notes Treatment Notes Treatment Clinical Notes Mar, Primary hypertension (ICD-10 - I10) [facility] Other 01-22-2024 Evaluation note* Encounter Date Diagnosis [...] has resolved INstructed on increasing fluids Restart [employer] Other 11-08-2023 Hospital Discharge instructions Patient Education [...] urethra. Follow these instructions at home: Take mrrg-cml-jwnyarg and prescription medicines only as told by [...] provider. Document Revised: 09/10/2021 Document Reviewed: 09/10/2021 [employer] Patient Education 2022 [place] [employer]. Follow Up Care 10/07/2022 09:26:45 With:Mo LEIJA, AKILAH Smith, URO Address: When: Unknown [facility] 09-05-2023 Evaluation note* Encounter Date Diagnosis [...] in the office with a CT scan. [facility] Other 08-02-2023 Hospital Discharge instructions Patient Education [...] urethra. Follow these instructions at home: Take pqau-mzd-aynbfwl and prescription medicines only as told by [...] provider. Document Revised: 09/10/2021 Document Reviewed: 09/10/2021 [employer] Patient Education 2022 [place] [employer]. Follow Up Care 07/28/2022 10:29:31 With:Mo LEIJA, AKILAH Smith, URO Address: When:Within 3 Day(s) [facility] 05-30-2023 Evaluation note* Encounter Date Diagnosis [...] a couple of weeks. These have resolved. [facility] Other 05-04-2023 Discharge summary Author Raul Quan [facility] July 09, 2022 12:08pm Note Date/Time July 09, 2022 8:07am [facility] [address] [place] [address] Discharge Summary Signed Patient: Chico Baker MR#: [id number] : 1940 Acct:[id number] Age/Sex: 82 / M Adm Date: 3 Loc: Room: [address] [place] [address]: Raul Quan MD Copies to: [...] midline, neck is supple, no JVD. 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 He has a [...] <Electronically signed by MD Raul Quan> 07/09/22 [address] [facility] Work Phone: 1(685) 119-754805-03-2023 History and physical note Author Raul Quan [facility] July 08, 2022 11:06am Note Date/Time July 08, 2022 11:06a m [facility] [address] [place] [address] Vascular Surgery H&P Signed Patient: Chico Baker MR#: [id number] : 1940 Acct:[id number] Age/Sex: 82 / M Adm Date: 3 Loc: Room: [address] [place] [address] Type: ADM IN Attending Dr: Raul Quan [...] signed by MD Raul Quan> 07/08/22 [address] [facility] Work Phone: 1(137) 469-786004-19-2023 Hospital Discharge instructions Patient Education 06/24/2022 09:42:41 [...] Follow these instructions at home: Medicines Take kkxe-epv-ikbkicv and prescription medicines only as told by [...] or the blood stops without treatment. Take rzvl-sud-ptmgbuj and prescription medicines only as told by your health care provider. Drink enough fluid to keep your urine pale yellow. This information is not intended to replace advice given to you by your health care provider. Make sure you discuss any questions you have with your health care provider. Document Revised: 10/23/2020 Document Reviewed: 10/23/2020 [employer] Patient Education 2022 [place] [employer]. 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 Walk daily Inspect feet daily for cuts [facility] Other 03-14-2023 Evaluation note* Encounter Date Diagnosis [...] agree with plan, and denies any questions. [facility] Other 03-08-2023 Evaluation note* Encounter Date Diagnosis Assessment Notes Treatment Notes Treatment Clinical Notes May, Carotid stenosis, bilateral (ICD-10 - I65.23) CTA: < 50% right, 80% left [facility] Other 03-08-2023 Evaluation note* Encounter Date Diagnosis Assessment Notes Treatment Notes Treatment Clinical Notes May, Carotid stenosis, bilateral (ICD-10 - I65.23) CTA: < 50% right, 70% left - 05/2022 [facility] Other 02-08-2023 Hospital Discharge instructions Patient Education [...] prostate. Follow these instructions at home: Take zwdm-hzf-aagnvys and prescription medicines only as told by [...] 02/19/2001 Document Revised: 05/07/2018 Document Reviewed: 11/12/2016 [employer]Public[employer] Patient Education 2020 [place] [employer]. Follow Up Care 02/11/2022 10:55:52 With:Mo LEIJA, AKILAH Smith, URO Address: When: Unknown [facility] 02-07-2023 Evaluation note* Encounter Date Diagnosis Assessment Notes Treatment Notes Treatment Clinical Notes Apr, Primary hypertension (ICD-10 - I10) [facility] Other 01-03-2023 Evaluation note* Encounter Date Diagnosis [...] to perform simultaneously to minimize contrast exposure. [facility] Other 12-21-2022 Hospital Discharge instructions Patient Education 02/25/2022 12:02:33 Rash, Adult, Cndm-hk-Dcqq Rash, Adult A rash is a change [...] with your condition: Medicine Take or apply qcuj-scp-kofqrlt and prescription medicines only as told by [...] the rash from spreading. Take or apply menf-qev-gziphkr and prescription medicines only as told by [...] 08/10/2008 Document Revised: 06/16/2019 Document Reviewed: 09/26/2018 [employer] Patient Education 2020 [place] [employer]. Follow Up Care 02/18/2022 14:33:21 With:Ivelisse Hassan Address:Unknown When: Unknown Comments:Appointment has already been scheduled [facility] 12-14-2022 Hospital Discharge instructions Patient Education [...] including vitamins, herbs, eye drops, creams, and tgfp-uui-nyypmju medicines. Any problems you or family members [...] provider tells you to take them. Taking yntn-kdr-wvubzpa medicines, vitamins, herbs, and supplements. Eating and [...] 02/22/2006 Document Revised: 06/14/2019 Document Reviewed: 11/23/2018 [employer]Public[employer] Patient Education 2019 [place] [employer]. Follow Up Care 02/17/2022 16:33:06 With:ARASH BUCHANAN, ADALGISA Ellis, URL Address: [address] [place] [address] [phone] When:02/25/2022 [facility] 12-07-2022 Hospital Discharge instructions Patient Education [...] prostate. Follow these instructions at home: Take tawe-xnt-lchcjcd and prescription medicines only as told by [...] 02/19/2001 Document Revised: 05/07/2018 Document Reviewed: 11/12/2016 [employer] Patient Education 2020 [place] [employer]. Follow Up Care 01/28/2021 10:15:04 With:Mo LEIJA, AKILAH Smith, URO Address: When:6 weeks [facility] 12-01-2022 Discharge summary Author Raul Quan [facility] February 05, 2022 10:08am Note Date/Time February 05, 2022 7 :52am [facility] [address] [place] [address] Discharge Summary Signed Patient: Chico Baker MR#: [id number] : 1940 Acct:[id number] Age/Sex: 81 / M Adm Date: 2 Loc: 4N Room: 2Q1220-[address]: Raul Quan MD Copies to: [...] % (Auto) 69.5, Lymph % (Auto) 14.4, [place] % (Auto) 14.8, Eos % (Auto) 0.7, Baso % (Auto) 0.6, Nucleat RBC Rel Count 0.1, Neut # (Auto) 7.1, Lymph # (Auto) 1.5, [place] # (Auto) 1.5 H, Eos # (Auto) 0.1, Baso # (Auto) 0.1 02/04/22 08:25: Corrected WBC 9.3, Uncorrected WBC Count 9.3, RBC 4.10, Hgb 12.4L, Hct 37.5 L, MCV 91.5, MCH 30.2, MCHC 33.0, RDW 13.7, Plt Count 198, MPV 8.5, Neut % (Auto) 70.1, Lymph % (Auto) 16.4, [place] % (Auto) 12.0, Eos % (Auto) 0.9, Baso % (Auto) 0.6, Nucleat RBC Rel Count 0.0, Neut # (Auto) 6.5, Lymph # (Auto) 1.5, [place] # (Auto) 1.1 H, Eos # (Auto) [...] signed by MD Raul Quan> 02/05/22 [address] [facility] Work Phone: 1(188) 590-395911-15-2022 Evaluation note* Encounter Date Diagnosis Assessment Notes [...] we will evaluate him for left TCAR. [facility] Other 10-31-2022 Evaluation note* Encounter Date Diagnosis [...] complete and CT confirms candidacy for TCAR [facility] Other 09-19-2022 Evaluation note* Encounter Date Diagnosis Assessment Notes Treatment Notes Treatment Clinical Notes Nov, AAA (abdominal aortic aneurysm) without rupture (ICD-10 - I71.4) This patient is still recovering from his recent orthopedic procedures. He continues with physical therapy and although he is getting stronger, he remains quite fatigued and weak yet. He has an upcoming appointment with his athletic instructor for preoperative risk assessment and stratification this next week. We will give him a few more weeks of physical therapy and have him back in a month or so to reschedule his AAA. He did tell me that he had some abdominal pain while in the senior living facility and was taken to the [facility] where a CT of the abdomen was obtained. We will get these studies pushed over for review and comparison. He denies any abdominal pain today and tells me his appetite is pretty good. He knows to call us in the meantime with any issues. [facility] Other 07-26-2022 Evaluation note* Encounter Date Diagnosis [...] agrees with this plan, denies any questions. [facility] Other 07-11-2022 Evaluation note* Encounter Date Diagnosis [...] agrees with this plan, and denies questions. [facility] Other 07-11-2022 Evaluation note* Encounter Date Diagnosis [...] agrees with this plan, and denies questions. [facility] Other 05-23-2022 Evaluation note* Encounter Date Diagnosis [...] returns we will get baseline ankle-brachial indices. [facility] Other 10-06-2021 NoteHNO ID: [id number] Author: Power Catherine MD Service: ? Author Type: Physician Type: Progress Notes Filed: 12/11/2020 11:17 AM Note Text: [facility] OUTPATIENT VISIT DATE December 11, 2020 OUTPATIENT VISIT TYPE EST PRIMARY CARE PHYSICIAN: Shailesh Dunham (Jere) [address] [place] [address] REFERRING PHYSICIAN Power Catherine [address] [facility] [address] CHIEF COMPLAINT: Patient presents with: Established Patient [...] statin therapy. ? Power Catherine, [facility]02-11-2021 NotePatient Outreach (COVAMN) SAMUELCHICO Abad ([id number]) 1940 M Date Time Provider Department 04/18/20 KIMBERLEY REHMAN During your visit today, we recorded the following information about you: Allergies As of Date: 04/18/2020 Noted Allergy Reaction SHALINI INHIBITORS 05/09/2015 16 - Unknown GADOLINIUM-CONTAINING CONTRAST ME*05/09/2015 16 - Unknown TETANUS VACCINES AND TOXOID 05/16/2015 16 - Unknown Date Reviewed: 10/18/2017 Reviewed by: Power Catherine - Fully Assessed Order(s):SARS-COVID VACCINE 1ST DOSE APPT [[id number]] Order #: [id number] FUTURE Prescriptions as of 04/18/2020 Sig: ASPIRIN [...] (None) Encounter Status:[facility] EPIC[facility] Future Appointments Appointment Date:04/15/2022 08:45:00 AM Scheduled Provider:Ivelisse Hassan MD Location:[facility] Appointment Type:URO Office Visit [facility] evaluation + Plan note Future Appointments Appointment Date:04/15/2022 08:45:00 AM Scheduled Provider:Ivelisse Hassan MD Location:[facility] Appointment Type:URO Office Visit Diagnostic Tests Pending * [facility] Future App[facility]ments Appointment Date:02/25/2022 11:00:00 AM Scheduled Provider:ADALGISA ANTOINE PA-C Location:[facility] Appointment Type:URO Office Visit Appointment Date:04/15/2022 08:45:00 AM Scheduled Provider:Ivelisse Hassan MD Location:[facility] Appointment Type:URO Office Visit [facility] evaluation + Plan note Future Appointments Appointment Date:06/24/2022 09:30:00 AM Scheduled Provider:Ivelisse Hassan MD Location:[facility] Appointment Type:URO Office Visit [facility] evaluation + Plan note Future Appointments Appointment Date:01/13/2023 09:00:00 AM Scheduled Provider:Ivelisse Hassan MD Location:[facility] Appointment Type:URO Office Visit [facility] evaluation + Plan note Future Appointments Appointment Date:09/01/2023 11:00:00 AM Scheduled Provider:Ivelisse Hassan MD Location:[facility] Appointment Type:URO Office Visit [facility] Evaluation + Plan note Future Appointments Appointment Date:09/01/2023 11:00:00 AM Scheduled Provider:Ivelisse Hassan MD Location:[facility] Appointment Type:URO Office Visit Diagnostic Tests Pending * Calculi Analysis Urinary [facility]04[facility]23 [facility] Diagnosis Onset Date Resolution Status AAA (abdominal aortic aneurysm) acute [facility] Work Phone: evaluation noteNo assessment information available [facility] Work Phone: evaluation noteNo InformationNort [employer] Other Evaluation note* Diagnosis Onset Date Resolution Status Left carotid stenosis acute [facility] Work Phone: evaluation note* Diagnosis Onset Date Resolution Status Hypercholesterolemia acute IFG (impaired fasting glucose) acute Kidney stones acute Nonrheumatic aortic (valve) stenosis acute Peripheral artery disease ac [place] Primary hypertension acute [facility] Work Phone: evaluation note* Diagnosis Onset Date Resolution Status Gallbladder polyp acute Hypercholesterolemia acute IFG (impaired fasting glucose) acute Nonrheumatic aortic (valve) stenosis acute Paget's disease of bony pelvis acute Peripheral artery disease ac [place] Primary hypertension acute [facility] Work Phone: evaluation note* Diagnosis Onset Date Resolution Status Gallbladder polyp acute Hypercholesterolemia acute IFG (impaired fasting glucose) acute Nonrheumatic aortic (valve) stenosis acute Paget's disease of bony pelvis acute Peripheral artery disease ac [place] Primary hypertension acute AAA (abdominal aortic aneurysm) without rupture acute [facility] Work Phone: evaluation note* Diagnosis Onset Date Resolution Status Gallbladder polyp acute Hypercholesterolemia acute IFG (impaired fasting glucose) acute Nonrheumatic aortic (valve) stenosis acute Paget's disease of bony pelvis acute Peripheral artery disease ac [place] Primary hypertension acute AAA (abdominal aortic aneurysm) without rupture acute AAA (abdominal aortic aneurysm) without rupture acute Benign prostatic hyperplasia with lower urinary tract symptoms acute Gallbladder polyp acute Hypercholesterolemia acute Mass of gallbladder acute Nonrheumatic aortic (valve) stenosis acute Paget's disease of bony pelvis acute Peripheral artery disease ac [place] Primary hypertension acute [facility] Work Phone: evaluation note* Diagnosis Onset Date Resolution Status Hypercholesterolemia acute IFG (impaired fasting glucose) acute Nonrheumatic aortic (valve) stenosis acute Paget's disease of bony pelvis acute Peripheral artery disease ac [place] Primary hypertension acute AAA (abdominal aortic aneurysm) without rupture acute AAA (abdominal aortic aneurysm) without rupture acute Benign prostatic hyperplasia with lower urinary tract symptoms acute Hypercholesterolemia acute Mass of gallbladder acute Nonrheumatic aortic (valve) stenosis acute Paget's disease of bony pelvis acute Peripheral artery disease [place] Primary hypertension acute AAA (abdominal aortic aneurysm) without rupture acute Hypercholesterolemia acute IFG (impaired fasting glucose) acute Mass of gallbladder acute Nonrheumatic aortic (valve) stenosis acute Peripheral artery disease [place] Primary hypertension acute Preop exam for internal medicine noneactive [facility] Work Phone: Evaluation note* Diagnosis Onset Date Resolution Status Hypercholesterolemia acute IFG (impaired fasting glucose) acute Nonrheumatic aortic (valve) stenosis acute Paget's disease of bony pelvis acute Peripheral artery disease [facility] Primary hypertension acute AAA (abdominal aortic aneurysm) without rupture acute AAA (abdominal aortic aneurysm) without rupture acute Benign prostatic hyperplasia with lower urinary tract symptoms acute Hypercholesterolemia acute Mass of gallbladder acute Nonrheumatic aortic (valve) stenosis acute Paget's disease of bony pelvis acute Peripheral artery disease [facility] Primary hypertension acute AAA (abdominal aortic aneurysm) without rupture acute Hypercholesterolemia acute IFG (impaired fasting glucose) acute Mass of gallbladder acute Nonrheumatic aortic (valve) stenosis acute Peripheral artery disease [facility] Primary hypertension acute Preop exam for internal medicine noneactive AAA (abdominal aortic aneurysm) without rupture acute Benign prostatic hyperplasia with lower urinary tract symptoms acute Hypercholesterolemia acute Mass of gallbladder acute Nonrheumatic aortic (valve) stenosis acute Paget's disease of bony pelvis acute Peripheral artery disease [facility] Primary hypertension acute [facility] Work Phone: Evaluation note* Diagnosis Onset Date Resolution Status AAA (abdominal aortic aneurysm) without rupture acute Benign prostatic hyperplasia with lower urinary tract symptoms acute Hypercholesterolemia acute Mass of gallbladder acute Nonrheumatic aortic (valve) stenosis acute Paget's disease of bony pelvis acute Peripheral artery disease [facility] Primary hypertension acute AAA (abdominal aortic aneurysm) without rupture acute Hypercholesterolemia acute IFG (impaired fasting glucose) acute Mass of gallbladder acute Nonrheumatic aortic (valve) stenosis acute Peripheral artery disease [facility] Primary hypertension acute Preop exam for internal medicine noneactive AAA (abdominal aortic aneurysm) without rupture acute Benign prostatic hyperplasia with lower urinary tract symptoms acute Hypercholesterolemia acute Mass of gallbladder acute Nonrheumatic aortic (valve) stenosis acute Paget's disease of bony pelvis acute Peripheral artery disease [place] Primary hypertension acute Acute on chronic heart failu re with preserved ejection fraction (HFpEF) acute Atrial fibrillation acute Hypercholesterolemia acute IFG (impaired fasting glucose) acute Nonrheumatic aortic (valve) stenosis acute NSTEMI (non-ST elevated myocardial infarction) acute Primary hypertension acute [facility] Work Phone: Evaluation note* Diagnosis Onset Date Resolution Status AAA (abdominal aortic aneurysm) without rupture acute Benign prostatic hyperplasia with lower urinary tract symptoms acute Hypercholesterolemia acute Mass of gallbladder acute Nonrheumatic aortic (valve) stenosis acute Paget's disease of bony pelvis acute Peripheral artery disease [place] Primary hypertension acute AAA (abdominal aortic aneurysm) without rupture acute Hypercholesterolemia acute IFG (impaired fasting glucose) acute Mass of gallbladder acute Nonrheumatic aortic (valve) stenosis acute Peripheral artery disease [place] Primary hypertension acute Preop exam for internal medicine noneactive AAA (abdominal aortic aneurysm) without rupture acute Benign prostatic hyperplasia with lower urinary tract symptoms acute Hypercholesterolemia acute Mass of gallbladder acute Nonrheumatic aortic (valve) stenosis acute Paget's disease of bony pelvis acute Peripheral artery disease [place] Primary hypertension acute Acute on chronic heart failu re with preserved ejection fraction (HFpEF) acute Atrial fibrillation acute Hypercholesterolemia acute IFG (impaired fasting glucose) acute Nonrheumatic aortic (valve) stenosis acute NSTEMI (non-ST elevated myocardial infarction) acute Primary hypertension acute AAA (abdominal aortic aneurysm) without rupture acute Carotid stenosis, bilateral acute Former smoker acute [facility] Work Phone: Evaluation note* Diagnosis Onset Date Resolution Status AAA (abdominal aortic aneurysm) without rupture acute Hypercholesterolemia acute IFG (impaired fasting glucose) acute Mass of gallbladder acute Nonrheumatic aortic (valve) stenosis acute Peripheral artery disease [place] Primary hypertension acute Preop exam for internal medicine noneactive AAA (abdominal aortic aneurysm) without rupture acute Benign prostatic hyperplasia with lower urinary tract symptoms acute Hypercholesterolemia acute Mass of gallbladder acute Nonrheumatic aortic (valve) stenosis acute Paget's disease of bony pelvis acute Peripheral artery disease [place] Primary hypertension acute Acute on chronic heart [...] elevated myocardial infarction) acute Primary hypertension acute [facility] Work Phone: Evaluation note* Diagnosis Onset Date Resolution Status Acute on chronic heart failu re with [...] Hypercholesterolemia acute IFG (impaired fasting glucose) acute Medicare annual wellness visit, subsequent acute Nonrheumatic aortic (valve) stenosis acute NSTEMI (non-ST elevated myocardial infarction) acute Primary hypertension acute Acute on chronic heart failu re with preserved ejection fraction (HFpEF) acute Atrial fibrillation acute Clostridium difficile colitis acute Nonrheumatic aortic (valve) stenosis acute Primary hypertension acute [facility] Work Phone: Evaluation note* Diagnosis Onset Date Resolution Status Acute on chronic heart failu re with [...] Hypercholesterolemia acute IFG (impaired fasting glucose) acute Medicare annual wellness visit, subsequent acute Nonrheumatic aortic (valve) stenosis acute NSTEMI (non-ST elevated myocardial infarction) acute Primary hypertension acute Atrial fibrillation acute Clostridium difficile colitis acute NSVT (nonsustained ventricular tachycardia) acute Primary hypertension acute [facility] Work Phone: Evaluation note* Diagnosis Onset Date Resolution Status Acute on chronic heart failu re with [...] Hypercholesterolemia acute IFG (impaired fasting glucose) acute Medicare annual wellness visit, subsequent acute Nonrheumatic aortic (valve) stenosis acute NSTEMI (non-ST elevated myocardial infarction) acute Primary hypertension acute Atrial fibrillation acute Clostridium difficile colitis acute NSVT (nonsustained ventricular tachycardia) acute Primary hypertension acute AAA (abdominal aortic aneurysm) without rupture acute [facility] Work Phone: Hiszjfj general Narrative - Reported* Type Description Date Medical History hypercholesterolemia Medical History abdominal aortic aneurysm Medical History Carotid stenosis Medical History PAD Surgical History TURP Surgical History knee arthroscopy LEFT Surgical History Vein stripping Hospitalization History See Above [facility] Other Hiskjjy general Narrative - Reported* Type Description Date Medical History hypercholesterolemia Medical History abdominal aortic aneurysm Medical History Carotid stenosis Medical History PAD Surgical History TURP Surgical History knee arthroscopy LEFT Surgical History Vein stripping Surgical History RT FEMUR FX WITH ARABELLA PLACEMENT Hospitalization History See Above [facility] Other Hisjbci general Narrative - Reported* Type Description Date Medical History hypercholesterolemia Medical History abdominal aortic aneurysm Medical History Carotid stenosis Medical History PAD Medical History [ ] Surgical History TURP Surgical History knee arthroscopy LEFT Surgical History Vein stripping Surgical History RT FEMUR FX WITH ARABELLA PLACEMENT Surgical History EVAR 02/04/2022 Surgical History [ ] Hospitalization History See Above [facility] Other history general Narrative - Reported* Type [...] History COLONOSCOPY 2019 Hospitalization History See Above [facility] Other Hisgzav general Narrative - Reported* Type Description Date [...] Left TCAR 07/2022 Hospitalization History See Above [facility] Other History general Narrative - Reported* Type [...] Left TCAR 07/2022 Hospitalization History See Above [facility] Other History general Narrative - Reported* Type [...] left ESWL 03/2023 Hospitalization History See Above [facility] Other Hospital course Narrative No data available for this section [facility] Hospital Discharge instructions No data available for this section [facility] Author Raul Quan [facility] October 15, 2021 4:31pm Note Date/Time October 15, 2021 4: 31pm [facility] [address] [place] [address] Vascular Surgery Progress Note Signed Patient: Chico Baker MR#: [id number] : 1940 Acct:[id number] Age/Sex: 81 / M Adm Date: 2 Loc: 4N Room: 7D2626-8 Type: DIS IN Attending Dr: Raul Quan [...] with evaluation here. I will contact [facility] to performoutpatient cardiac evaluation and then he will be rescheduled when he is cleared. Code(s): I71.4 - Abdominal aortic aneurysm, without rupture Status: Acute Documented By: Raul Quan MD 10/15/21 162 9 Signed By: <Electronically signed by MD Raul Quan> 10/15/21 1631 [facility] Work Phone: Progress note Author Pb Zurita [facility] October 16, 2021 5:41am Note Date/Time October 16, 2021 5: 41am [facility] [address] [place] [address] Anesthesia Progress Note Signed Patient: Chico Baker MR#: [id number] : 1940 Acct:[id number] Age/Sex: 81 / M Adm Date: 2 Loc: 4N Room: [address] [place] [address] Type: DIS IN Attending Dr: Raul Quan MD Copies to: ~ Anesthesia Progress Note Narrative Narrative: Patient for EVAR today for 5+ centimeter infrarenal AAA. Past medical history hypertension, moderate aortic stenosis, and coronary artery disease. Review of medical records and discussion with indicates patient had stress test 2008 positive for infarct and ischemia at which time he was referred to [facility] and had cardiac cath. Medical management was apparently chosen. No interval events,testing, or intervention. Patient has been asymptomatic but sedentary and poor historian. Advised patient and family to see athletic instructor for consideration of preop stress testing. Discussed with surgeon Documented By: Pb Zurita MD 10/16/2135 Signed By: <Electronically signed by Pb Zurita MD> 10/16/21 0541 [facility] Work Phone: Progress note No data available for this section [facility] Reason for Referral No Reason for [...] Date Encounter for Immunization 1st COVID Vaccine wit tejas Lisandra Sher PharmD 06/13/2020 Instructions Instructions not supported [...] Documentation i71.4 BP check S/P EVAR; [facility] Reason for Visit Gallbladder polyp Hypercholesterolemia IFG (impaired fasting glucose) 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 Peripheral artery disease Primary hypertension Chief Complaint i71.4 BP check S/P EVAR; [facility] Nonrheumatic aortic stenosis Reason for Visit Gallbladder polyp Hypercholesterolemia IFG (impaired fasting glucose) 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 Peripheral artery disease Primary hypertension AAA (abdominal aortic aneurysm) without rupture Chief Complaint i71.4 BP check S/P EVAR; [facility] Nonrheumatic aortic stenosis Reason [...] Complaint i71.4 BP check S/P EVAR; [facility] Nonrheumatic aortic stenosis sugical [...] Complaint i71.4 BP check S/P EVAR; [facility] Nonrheumatic aortic stenosis sugical [...] Complaint i71.4 BP check S/P EVAR; [facility] Nonrheumatic aortic stenosis sugical [...] elevated myocardial infarction) Primary hypertension Chief Complaint Amb Documentation Amb Documentation hospital follow up 1 YR F/U; CAROTID DUPLEX 10A I65.23 1 month f/u follow up Reason for Visit Acute on chronic hea rt failure with preserved ejection fraction (HFpEF) Atrial fibrillation Hypercholesterolemia IFG (impaired fasting glucose) Nonrheumatic aortic (valve) stenosis NSTEMI (non-ST elevated myocardial infarction) Primary hypertension AAA (abdominal aortic aneurysm) without rupture Carotid stenosis, bilateral Former smoker Acute on chronic heart failure with preserved ejection fraction (HFpEF) Atrial fibrillation Hypercholesterolemia IFG (impaired fasting glucose) Medicare annual wellness visit, subsequent Nonrheumatic aortic (valve) stenosis NSTEMI (non-ST elevated myocardial infarction) Primary hypertension Acute on chronic heart failure with preserved ejection fraction (HFpEF) Atrial fibrillation Clostridium difficile colitis Nonrheumatic aortic (valve) stenosis Primary hypertension Chief Complaint Amb Documentation Amb Documentation hospital follow up 1 YR F/U; CAROTID DUPLEX 10A I65.23 1 month f/u follow up 6 MO WITH AAA 1030A I65.23 I71.40 Reason for Visit Acute on chronic hea rt failure with preserved ejection fraction (HFpEF) Atrial fibrillation Hypercholesterolemia IFG (impaired fasting glucose) Nonrheumatic aortic (valve) stenosis NSTEMI (non-ST elevated myocardial infarction) Primary hypertension AAA (abdominal aortic aneurysm) without rupture Carotid stenosis, bilateral Former smoker Acute on chronic heart failure with preserved ejection fraction (HFpEF) Atrial fibrillation Hypercholesterolemia IFG (impaired fasting glucose) Medicare annual wellness visit, subsequent Nonrheumatic aortic (valve) stenosis NSTEMI (non-ST elevated myocardial infarction) Primary hypertension Atrial fibrillation Clostridium difficile colitis NSVT (nonsustained ventricular tachycardia) Primary hypertension Chief Complaint Amb Documentation Amb Documentation hospital follow up 1 YR F/U; CAROTID DUPLEX 10A I65.23 1 month f/u follow up 6 MO WITH AAA 1030A I65.23 I71.40 Reason for Visit Acute on chronic hea rt failure with preserved ejection fraction (HFpEF) Atrial fibrillation Hypercholesterolemia IFG (impaired fasting glucose) Nonrheumatic aortic (valve) stenosis NSTEMI (non-ST elevated myocardial infarction) Primary hypertension AAA (abdominal aortic aneurysm) without rupture Carotid stenosis, bilateral Former smoker Acute on chronic heart failure with preserved ejection fraction (HFpEF) Atrial fibrillation Hypercholesterolemia IFG (impaired fasting glucose) Medicare annual wellness visit, subsequent Nonrheumatic aortic (valve) stenosis NSTEMI (non-ST elevated myocardial infarction) Primary hypertension Atrial fibrillation Clostridium difficile colitis NSVT (nonsustained ventricular tachycardia) Primary hypertension AAA (abdominal aortic aneurysm) without rupture Additional Source Comments Medical History (unrecognize d [...] section and content) DATE CREATED AUTHOR 04/02/2021 [facility] DATE CREATED AUTHOR AUTHOR'S ORGANIZ ATION 10/28/2021 [facility] DATE CREATED AUTHOR AUTHOR'S ORGANIZ ATION [facility]2022 [facility] DATE CREATED AUTHOR AUTHOR'S ORGANIZ ATION 05/13/2023 [facility] DATE CREATED AUTHOR AUTHOR'S ORGANIZ ATION 07/29/2023 [facility] EP[facility] DATE CREATED AUTHOR AUTHOR'S ORGANIZ ATION 01/12/2024 [facility] DATE CREATED AUTHOR AUTHOR'S ORGANIZ ATION 01/25/2024 [facility] REASON FOR VISIT (unrecogniz ed section and content) REF BY DR DUNHAM FOR AAA, PAD AND CAROTID STENOSIS, Needs a new vascular surgeon7 WK FOLLOW UP; SHYANNE'S, ABDOMINAL, CAROTID WK FOLLOW UP; SHYANNE'S, ABDOMINAL, CAROTID 08/27/21FOLLOW UP AFTER [facility] 09/18/21-AAAAAA see pt post femur fx rt and clavicle rt6 WK FOLLOW UP, Follow-up abdominal aortic aneurysmVASC 3 MONTH FOLLOW UP; CAROTID DUPLEX 11A, Abdominal aortic aneurysm3 week f/u EVAR, Follow-up after percutaneous aneurysm repairNo InformationNo InformationNo InformationNo InformationNo Information2 MONTH FOLLOW UP; [facility] Follow UpNo InformationNo InformationNo Information3 week f/u left TCAR, Follow-up TCAR3 MONTH FOLLOW UP; CAROTID DUPLEX 10A, Follow-up after left TCARNo InformationTBH follow upNo InformationNo InformationBP readings/concern1 week1 weekBP reading Care Teams (unrecognized sec tion and content) Team Status: Active Member Role Status Dates Shailesh Dunham DO Primary Care Provider Active Team Status: Active Member Role Status Kirk [...] Member Role Status Dates Sheri Christiansen MD Senior Linux Engineer Active Shailesh Dunham DO Primary Care Provider [...] Provider Active Start: October 17, 2023 Shaikh Agsutina MD Attending Provider Active Sta rt: October [...] November 23, 2023 End: November 23, 2023 Team Status: Active Member Role Status Kirk Dunham , DO Primary Care Provide r, Attending Provider Active Start: December 17, 2023 Team Status: Inactive Member Role Status Kirk Dunham , DO Primary Care Provide r, Attending Provider Active Start: December 22, 2023 End: December 22, 2023 Team Status: Inactive Member Role Status Kirk Dunham , DO Primary Care Provider Active Start: January 11, 2024 End: January 11, 2024 Raul Quan MD Attending Provider Active S tart: January 11, 2024 End: January 11, 2024 Team Status: Active Member Role Status Kirk Dunham , DO Primary Care Provider Active Start: January 11, 2024 Raul Quan MD Attending Provider Active S tart: January 11, 2024 Goals (unrecognized section and content) Goals may [...] BE BASED ON THE PRIMARY CLINICAL RECORDS. [facility] [employer] provides no warranty or guarantee of the accuracy or completeness of information in this document.
[2024-01-28] MEDS: REGADENOSON 0.4 MG/5 ML SYRINGE IV (09:48)
--- NOTE | 2024-01-28 09:59 | PC.NURSE ---
Nursing Note Cardiac Stress Test Reviewed: Medication, allergies and patient history reviewed. Stress Test: [x ] Patient tolerated stress test well. [ x] Patient unable to tolerate walking on treadmill. Switched to Lexiscan stress test. [x ] No chest pain noted per patient [ ] Chest pain that resolved prior to leaving stress lab. [ x] No dyspnea noted. [ ] Dyspnea that resolved prior to leaving stress lab. [ x] Patient left stress lab asymptomatic and hemodynamically stable. [ ] Patient taken to the Emergency Room due to non-resolving symptoms following stress test. [ ] Patient achieved target heart rate. [ ] Patient unable to achieve target heart rate. [ ] Aminophylline administered as reversal agent to Lexiscan (Regadenoson). [ ] Nitro administered. Nursing Comments:Pt was scheduled for Cardiolite test but due to weakness and fatigue was switched to Lexiscan. 3 weeks ago pt had gallbladder and part of liver removed and states he is still weak due to this. Pt tolerated Lexiscan well. We checked with staff at [facility] and verified that pt was ok to have a Lexiscan done prior to switching. Pt was taken down to the cafeteria via wheelchair to eat breakfast before having second scan done.
== END 2024-01-28 07:30 | disposition home or self-care (01) ==
LOC: NM 07:30
PROVIDERS: PCP Internal Medicine; Visit Provider Internal Medicine Cardiovascular Disease
DX: I47.29 Other ventricular tachycardia (principal); R06.09 Other forms of dyspnea
CPT/HCPCS: 78452; 93017; A9500; J2785

== ENCOUNTER 2024-04-06 11:52 | Outpatient (OUT) | payer MEDICARE, OTHER, SELFPAY ==
--- OUTSIDE RECORDS SUMMARY | 2024-04-06 11:58 | XMS_ITS | CCD ---
Author Organization [facility] Care Team Providers Care Telephone Collector Name Role Phone Orlando Dotson Unavailable Raul Quan Unavailable Tamar Perea Unavailable Shailesh Dunham Unavailable DO Shailesh Dunham Primary Care Provider MD Raul Quan Attending Provider [phone] KB Perea Attending Provider MD Raul Quan Admit Provider DO Shailesh Dunham Primary Care Provider KB Perea Attending Provider MD Raul Quan Admit Provider MD Raul Quan Attending Provider [phone] SHAILESH DUNHAM Primary Care Physician IVELISSE FRANCIS Admitting Unavailable IVELISSE FRANCIS Attending Unavailable ENRICO, DR MEADE Primary Care Unavailable IVELISSE FRANCIS Consulting Unavailable ENRICO, DR MEADE Admitting Unavailable ENRICO, DR MEADE Attending Unavailable ENRICO, DR MEADE Referring Unavailable BALL, DR MEADE Primary Care Unavailable ENRICO, DR MEADE Consulting Unavailable ENRICO, DR MEADE Admitting Unavailable BALL, DR MEADE Attending Unavailable ENRICO, DR EMADE Primary Care Unavailable BALL, DR MEADE Consulting Unavailable ENRICO, DR MEADE Admitting Unavailable BALL, DR MEADE Attending Unavailable ENRICO, DR MEADE Primary Care Unavailable ENRICO, DR MEADE Consulting Unavailable WEST, DR ROCIO Dean Consulting Unavailable AVELINA, DR BILLS Admitting Unavailable TOMMYEHMARY ANN, DR BILLS Attending Unavailable ENRICO, DR MEADE [...] Care Provider MD Raul Quan Attending Provider [phone] DO Shailesh Dunham Primary Care Provider MD [...] Care Provider MD Raul Quan Attending Provider [phone] DO Shailesh Dunham Primary Care Provider MD Sheri Christiansen Attending Provider [phone] DO Shailesh Dunham Primary Care Provider [phone] DO Shailesh Dunham Primary Care Provider MD Raul Quan Attending Provider Shailesh Dunham Primary Care Unavailable Avelina, Raul Admitting Unavailable Raul Quan Attending Unavailable Tommyehrejakub, Raul Admitting Unavailable TommyehreRaul phelps Attending Unavailable Enrico, Shailesh Primary Care Unavailable Enrico, Shailesh Primary Care Unavailable Buehrejakub, Raul Admitting Unavailable Tommyehrejakub, Raul Attending Unavailable Shailesh Dunham Primary Care Unavailable ЕленаSheri lopez Admitting Unavailable Sheri Christiansen Attending Unavailable Shailesh Dunham Primary Care Unavailable Елена, Sheri Admitting Unavailable Sheri Christiansen Attending Unavailable AMBER BRYANT Referring Unavailable AMBER BRYANT Referring Unavailable MARIA EUGENIA BERRY Referring Unavailable MARIA EUGENIA BERRY Attending Unavailable AMBER BRYANT Attending Unavailable AMBER BRYANT Referring Unavailable CLIFTON CERDA Attending Unavailable CLIFTON CERDA Attending Unavailable AMBER BRYANT Attending Unavailable AMBER BRYANT Admitting Unavailable AMBER BRYANT Attending Unavailable AMBER BRYANT Attending Unavailable AMBER BRYANT Attending Unavailable MARIA EUGENIA BERRY Referring Unavailable Allergies Allergy Classification Reported Allergen(s) Allergy Type Date of Onset Reaction(s) Facility Angiotensin Converting Enzyme (SHALINI) Inhibitors (2 sources) Angiotensin Converting Enzyme (Shalini) Inhibitors Drug Allergy 08-27-19 24 [facility] Tetanus immune globulin (2 sources) Tetanus immune globulin Drug Allergy 08-27-19 24 Unknown Reaction [facility] (5 sources) Angiotensin Converting Enzyme (Shalini) Inhibitors Drug allergy Unknown [facility] Other (6 sources) Tetanus vaccine; Translations: [tetanus toxoid] Drug allergy Unknown [facility] Repository (20 sources) Angiotensin Converting Enzyme (Shalini) Inhibitors; Translations: [Angiotensin-conv erting enzyme inhibitor agent (substance)] Allergy to substance 05-09-19 16 [facility] (8 sources) Contrast media Allergy to substance 10-07-19 22 [facility] (20 sources) Tetanus immune globulin; Translations: [tetanus immune globulin] Drug Allergy 02-24-20 19 Unknown Reaction [facility] (20 sources) Angiotensin-conve rting enzyme inhibitor agent Drug allergy Unknown [facility] Other (2 sources) Tetanus toxoid specific immunoglobulin E Drug allergy Unknown [facility] Other (12 sources) Contrast media; Translations: [Contrast Dye] Allergy to substance unknown [facility] (13 sources) Iodine; Translations: [iodine] Drug Allergy 10-27-19 22 Unknown (qualifier value) [facility] (11 sources) tetanus toxoid vaccine, inactivated; Translations: [tetanus toxoid] Drug Allergy Unknown (qualifier value) [facility] (1 source) Iodine Drug Allergy [facility] Repository (1 source) Iodine (And Iodine Containting Drugs) Drug allergy (disorder) [facility] Repository (1 source) Tetanus AND Diphtheria Tox,Adult Drug allergy (disorder) [facility] Rep[facility] (20 sources) Tetanus vaccine Drug allergy Unknown [facility] Other (20 sources) Iodinated Contrast Media; Translations: [Iodinated Contrast Media] Allergy to substance 10-27-19 [facility] (16 sources) tetanus toxoid, adsorbed; Translations: [tetanus toxoid, adsorbed] Allergy to substance 04-26-19 24 Unknown Reaction [facility] (1 source) GADOLINIUM-CONTAI MAYA CONTRAST MEDIA; Translations: [GADOLINIUM-CONTA INING CONTRAST MEDIA] Propensity to adverse reactions to drug (disorder) 05-09-19 16 [facility] Repository (1 source) TETANUS AND DIPHTHERIA TOXOIDS; Translations: [TETANUS AND DIPHTHERIA TOXOIDS] Propensity to adverse reactions to drug (disorder) 10-27-19 22 [facility] Repository (1 source) TETANUS VACCINES AND TOXOID; Translations: [TETANUS VACCINES AND TOXOID] Propensity to adverse reactions to drug (disorder) 05-16-19 16 [facility] Repository (1 source) ALLERGIES NOT ON FILE; Translations: [ALLERGIES NOT ON FILE] Propensity to adverse reactions (disorder) [facility] Repository Medications Current Medications Medication Drug [...] 2019 12:00am April 26, 2023 5:54pm Isosorbide Comfort itrate Active isosorbide dinitrate 30 mg oral [...] daily Active take 1 tablet by freddy every twenty-four hours Losartan Potassium 100 MG 1 tablet Orally Once a day Active Losartan Potassi um Active 24 hr mirabegron 25 mg extended release oral tablet (4 sources) beta3-Adrenergic Agonist Start: 10-07-2022 take 1 tablet by mouth once daily Myrbetriq 25 mg oral tablet, extended release 25 mg = 1 tab(s), Oral, Daily, # 30 tab(s), Refills(s) 6, Pharmacy: [facility]/pharmacy #[id number], 169, cm, 10/07/22 8:54:00 EDT, [...] for 30 day(s), 60 tab(s), Refill(s) 0, [facility]/pharmacy #[id number], 169, cm, 02/11/22 8:44:00 EST, [...] acid 7540 MG / polyethylene glycol 3350 22238 MG / potassium chloride 1200 MG / sodium ascorbate 37914 MG / sodium chloride 3200 MG Powder for Oral Solution) / 1 (polyethylene glycol 3350 135507 MG / potassium chloride 1000 MG / [...] Start: 02-11-2022 take [address] [facility] three times daily calcium (as [...] Discontinued 50 MG PO Once 1 May 26, 2023 11:00pm June 22, 2023 [...] 2023 11:15am take 1 capsule by mo ut every twenty-four hours Tamsulosin HCl 0.4 MG [...] Coronary arteriosclerosis; Translations: [Atherosclerotic heart disease of [place] coronary artery without angina pectoris] Onset: 11-14-2021 [...] pain; Translations: [EPIGASTRIC PAIN] Onset: 2 Episodic Biliary tract disease (20 sources) Polyp of gallbladder; 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] Onset: 4 06-22-2023 Episodic Deficiency and other anemia (1 source) [...] or uncertain behavior (4 sources) Neoplasm of unspecified behavior of digestive system; 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, gallbladder and bile ducts] Onset: 4 Episodic Other aftercare (1 source) 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; Translations: [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 CURRENT DRUG THERAPY] Onset: 2 Episodic Other aftercare (1 source) terminal carman (current) use of anticoagulants; Translations: [FPC CURRNT USE ANTICOAGULANTS] Onset: 2 Episodic Other aftercare (1 source) terminal carman (current) use of aspirin; Translations: [FPC CURRENT USE OF ASPIRIN] Onset: 2 Episodic [...] Test Name Value Interpretation Reference Range Facility Office Visiton 03-21-2024 Follow-up visit [id number] [address] 1940 M Date Provider Department Center 03/21/2024 241-CLIFTON CERDA RAYMOND [facility] Family History Problem Relation Age of Onset Heart disease Mother No Known Problems Father No Known Problems Sister Family Status - Relation Status Age at Mother Father Sister Alive Level of Service:74721 [place] OFFICE/OUTPATIENT ESTABLISHED LOW MDM 20 MIN [facility] Orders Onlyon 03-21-2024 Orders Only [id number] [address] 1940 [facility] Provider Department Center 03/21/2024 895-NISA SHIRLEY RAYMOND [facility] Family History Problem Relation Age of Onset Heart disease Mother No Known Problems Father No Known Problems Sister Family Status - Relation Status Age at Mother Father Sister Alive [facility] 36on 02-15-[address] Cerda - ok for patient to hold Eliquis 2 days prior to tooth extraction. Patient's and Dr. Mcgovern's office made aware. Patient's also made aware of stress test result per Dr. Cerda. He has follow up apt with him on 03/21/2024. [facility] Follow-Upon 01-19-2024 Follow-Up [id number] [address] 1940 On License Of [facility] Department Lilly 01/19/2024 [id number] BRYANT DCC ONC DCC Family History Problem Relation Age of Onset Heart disease Mother No Known Problems Father No Known Problems Sister Family Status - Relation Status Age at Mother Father Sister Alive Level of Service:34192 [place] OFFICE/OUTPATIENT ESTABLISHED LOW MDM 20 MIN Reason for Visit and Comments: Follow-up [165736] - Here for 3 month F/U of his chronic cholecystitis. Review LFT's. [facility] Orders Onlyon 01-19-2024 Orders Only [id number] [address] 1940 On License Of [facility] Department Lilly 01/19/2024 [id number], HISTORICAL DCC ONC DCC Family History Problem Relation Age of Onset Heart disease Mother No Known Problems Father No Known Problems Sister Family Status - Relation Status Age at Mother Father Sister Alive [facility] Office Visiton 01-18-2024 Follow-up visit [id number] [address] J 1940 M Date Provider Department Center 01/18/2024 Prince-CLIFTON CERDA [facility] Family History Problem Relation Age of Onset Heart disease Mother No Known Problems Father No Known Problems Sister Family Status - Relation Status Age at Mother Father Sister Alive Level of Service:01868 [place] OFFICE/OUTPATIENT NEW MODERATE MDM 45 MINUTES Normal [facility] US aortaon 01-11-2024 US aorta [facility] [address] [place] [address] Ultrasound Report Signed Patient: Chico Baker MR#: [id number] 284 : 1940 Acct:[id number] Age/Sex: 83 / M ADM Date: 01/11/24 Loc: [facility] ER Room: Type: [facility] Attending Dr: Raul Quan MD Ordering Provider: Raul Quan MD Date of Service: 01/11/24 US/US aorta: I71.40 - Abdominal aortic aneurysm, without [...] Raul Quan M.D.01/11/2024 11:12 AM Dictation Location: [place] [address] Tech: Harika Pradhan Transcribed By: ALEX 01/11/24 111 Dictated By: Raul Quan MD 01/11/24 111 Signed By: 01/11/24 111 Normal [facility] Basophils Auto (Bld) [#/Vol] on 12-17-2023 Basophils (Bld) [#/Vol] 0.1 10 3/uL 0.0-0.1 [facility] Basophils/100 WBC Auto (Bld) on 12-17-2023 Basophils/100 WBC (Bld) 0.7 % 0.2-2.0 [facility] Eosinophils/100 WBC Auto (Bl d)on 12-17-2023 Eosinophils/100 WBC (Bld) 1.4 % 0.9-7.0 [facility] Erythrocyte distribution wid th Auto (RBC) [Ratio]on 12-17-2023 Erythrocyte distribution width (RBC) [Ratio] 12.3 % 11.0-15.0 [facility] Hematocrit Auto (Bld) [Volum e fraction]on 12-17-2023 Hematocrit (Bld) [Volume fraction] 39.0 % Low 42.0-54.0 [facility] Hemoglobin [Mass/volume] in Bloodon 12-17-2023 Hemoglobin (Bld) [Mass/Vol] 12.7 g/dL Low 14.0-18.0 [facility] Laboratory - Hematology and Cell countson 12-17-2023 Immature granulocytes/100 WBC (Bld) 0.3 % 0.0-0.5 [facility] Leukocytes [#/volume] correc shyann for nucleated erythrocytes in Blood by Automated counon 12-17-2023 WBC corrected for nucl RBC Auto (Bld) [#/Vol] 10.7 10 3/uL 4.0-11.0 [facility] Lymphocytes Auto (Bld) [#/Vo l]on 12-17-2023 Lymphocytes (Bld) [#/Vol] 1.7 10 3/uL 1.2-3.8 [facility] Lymphocytes/100 WBC Auto (Bl d)on 12-17-2023 Lymphocytes/100 WBC (Bld) 15.7 % Low 20.5-60.0 [facility] MCH Auto (RBC) [Entitic mass ]on 12-17-2023 MCH (RBC) [Entitic mass] 30.4 pg 25.9-34.0 [facility] MCHC Auto (RBC) [Mass/Vol]on 12-17-2023 MCHC (RBC) [Mass/Vol] 32.6 g/dL 29.9-35.2 [facility] MCV Auto (RBC) [Entitic vol] on 12-17-2023 MCV (RBC) [Entitic vol] 93.3 fL 80.0-94.0 [facility] Monocytes Auto (Bld) [#/Vol] on 12-17-2023 Monocytes (Bld) [#/Vol] 1.0 10 3/uL High 0.3-0.8 [facility] Monocytes/100 WBC Auto (Bld) on 12-17-2023 Monocytes/100 WBC (Bld) 9.7 % 1.7-12.0 [facility] Neutrophils Auto (Bld) [#/Vo l]on 12-17-2023 Neutrophils (Bld) [#/Vol] 7.7 10 3/uL High 1.4-6.5 [facility] Neutrophils/100 WBC Auto (Bl d)on 12-17-2023 Neutrophils/100 WBC (Bld) 72.2 % 43.0-75.0 [facility] No Panel Informationon 12-16 C-Reactive Protein, Quantitative 0.59 mg/dL High <=0.50 [facility] Eosinophils # (Auto) 0.2 10 3/uL 0.0-0.7 [facility] Immature Granulocyte # (Auto) 0.03 10 3/uL 0.00-0.03 [facility] Clostridium difficile (PCR)(LAB) Positive Abnormal NEGATIVE [facility] Comment on above: RESULTS CALLED TO CARLOS A RICHARDS Miscellaneous Test Comment See comment [facility] Comment on above: Specimen Source: ST - Stool - Stool - 700.100 Stool Campylobacter Culture Res 1 \R\ Campylobacter Culture\R\ No Campylobacter species isolated. [facility] Comment on above: [facility], No Panel InformationOrdered By: Shailesh Dunham on 12-17-2023 E coli Shiga Toxin EIA Fi [facility] Salmonella/Shigella Screen [facility] Platelet mean volume Auto (B ld) [Entitic vol]on 12-17-2023 Platelet mean volume (Bld) [Entitic vol] 9.4 fL Low 9.5-13.5 [facility] Platelets Auto (Bld) [#/Vol] on 12-17-2023 Platelets (Bld) [#/Vol] 190 10 3/uL 150-450 [facility] RBC Auto (Bld) [#/Vol]on RBC (Bld) [#/Vol] 4.18 10 6/uL Low 4.70-6.10 [facility] US carotid doppler BIon 09-0 US carotid doppler BI [facility] [address] [place] [address] Ultrasound Report Signed Patient: Chico Baker MR#: [id number] 284 : 1940 Acct:[id number] Age/Sex: 83 / M ADM Date: 11/15/23 Loc: [facility] ER Room: Type: [facility] Attending Dr: Raul Quan MD Ordering Provider: [...] Raul Quan M.D.11/15/2023 10:27 AM Dictation Location: [place] [address] Tech: Jennifer Mancini Transcribed By: ALEX 11/15/23 1027 Dictated By: Raul Quan MD 11/15/23 1025 Signed By: 11/15/23 1027 Normal [facility] Office Visiton 10-27-2023 Follow-up visit [id number] [address] 1940 Date Provider Department Lilly 10/27/2023 [id number] BRYANT ONC DCC Family History Problem Relation Age of Onset Heart disease Mother No Known Problems Father No Known Problems Sister Family Status - Relation Status Age at Mother Father Sister Alive Level of Service:70368 [place] POSTOP FOLLOW UP VISIT RELATED TO ORIGINAL PX Reason for Visit and Comments: Post-op [483] - Here for post-op visit - S/P robot 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 Normal [facility] Basophils Auto (Bld) [#/Vol] on 10-26-2023 Basophils (Bld) [#/Vol] 0.1 10 3/uL 0.0-0.1 [facility] Basophils/100 WBC Auto (Bld) on 10-26-2023 Basophils/100 WBC (Bld) 0.5 % 0.2-2.0 [facility] Eosinophils/100 WBC Auto (Bl d)on 10-26-2023 Eosinophils/100 WBC (Bld) 2.9 % 0.9-7.0 [facility] Erythrocyte distribution wid th Auto (RBC) [Ratio]on 10-26-2023 Erythrocyte distribution width (RBC) [Ratio] 12.7 % 11.0-15.0 [facility] Estimated glomerular filtrat ion rate (GFR) non- Americanon 10-26-2023 GFR/1.73 sq M.predicted among non-blacks MDRD (S/P/Bld) [Vol rate/Area] mL/min/{1.73_m2} >=60 [facility] Globulin Calc (S) [Mass/Vol] on 10-26-2023 Globulin (S) [Mass/Vol] 3.9 g/dL [facility] Hematocrit Auto (Bld) [Volum e fraction]on 10-26-2023 Hematocrit (Bld) [Volume fraction] 32.4 % Low 42.0-54.0 [facility] Hemoglobin [Mass/volume] in Bloodon 10-26-2023 Hemoglobin (Bld) [Mass/Vol] 10.4 g/dL Low 14.0-18.0 [facility] Laboratory - Chemistry and C hemistry - challengeon 10-26-2023 Albumin [Mass/Vol] 3.1 g/dL Low 3.4-5.0 [facility] ALP [Catalytic activity/Vol] 106 U/L 46-116 [facility] ALT [Catalytic activity/Vol] 19 U/L 16-63 [facility] AST [Catalytic activity/Vol] 16 U/L 15-37 [facility] Bilirubin [Mass/Vol] 0.5 mg/dL 0.2-1.0 [facility] Calcium [Mass/Vol] 8.8 mg/dL 8.5-10.1 [facility] Chloride [Moles/Vol] 100 mmol/L 98-107 [facility] CO2 [Moles/Vol] 29.0 mmol/L 21.0-32.0 [facility] Creatinine [Mass/Vol] 0.95 mg/dL 0.70-1.30 [facility] GFR/1.73 sq M.predicted MDRD (S/P/Bld) [Vol rate/Area] mL/min/{1.73_m2} >=60 [facility] Glucose [Mass/Vol] 134 mg/dL High 74-106 [facility] Potassium [Moles/Vol] 4.5 mmol/L 3.5-5.1 [facility] Protein [Mass/Vol] 7.0 g/dL 6.4-8.2 [facility] Sodium [Moles/Vol] 136 mmol/L 136-145 [facility] TSH Qn 2.068 m[IU]/L 0.358-3.74 0 [facility] Urea nitrogen [Mass/Vol] 14.0 mg/dL 7.0-18.0 [facility] Urea nitrogen/Creatinine [Mass ratio] 14.7 mg/mg [facility] Laboratory - Hematology and Cell countson 10-26-2023 Immature granulocytes/100 WBC (Bld) 0.5 % 0.0-0.5 [facility] Leukocytes [#/volume] correc shyann for nucleated erythrocytes in Blood by Automated counon 10-26-2023 WBC corrected for nucl RBC Auto (Bld) [#/Vol] 12.4 10 3/uL High 4.0-11.0 [facility] Lymphocytes Auto (Bld) [#/Vo l]on 10-26-2023 Lymphocytes (Bld) [#/Vol] 1.4 10 3/uL 1.2-3.8 [facility] Lymphocytes/100 WBC Auto (Bl d)on 10-26-2023 Lymphocytes/100 WBC (Bld) 11.6 % Low 20.5-60.0 [facility] MCH Auto (RBC) [Entitic mass ]on 10-26-2023 MCH (RBC) [Entitic mass] 30.0 pg 25.9-34.0 [facility] MCHC Auto (RBC) [Mass/Vol]on 10-26-2023 MCHC (RBC) [Mass/Vol] 32.1 g/dL 29.9-35.2 [facility] MCV Auto (RBC) [Entitic vol] on 10-26-2023 MCV (RBC) [Entitic vol] 93.4 fL 80.0-94.0 [facility] Monocytes Auto (Bld) [#/Vol] on 10-26-2023 Monocytes (Bld) [#/Vol] 1.4 10 3/uL High 0.3-0.8 [facility] Monocytes/100 WBC Auto (Bld) on 10-26-2023 Monocytes/100 WBC (Bld) 11.0 % 1.7-12.0 [facility] Neutrophils Auto (Bld) [#/Vo l]on 10-26-2023 Neutrophils (Bld) [#/Vol] 9.1 10 3/uL High 1.4-6.5 [facility] Neutrophils/100 WBC Auto (Bl d)on 10-26-2023 Neutrophils/100 WBC (Bld) 73.5 % 43.0-75.0 [facility] No Panel Informationon 10-25 Eosinophils # (Auto) 0.4 10 3/uL 0.0-0.7 [facility] Immature Granulocyte # (Auto) 0.06 10 3/uL High 0.00-0.03 [facility] Platelet mean volume Auto (B ld) [Entitic vol]on 10-26-2023 Platelet mean volume (Bld) [Entitic vol] 9.2 fL Low 9.5-13.5 [facility] Platelets Auto (Bld) [#/Vol] on 10-26-2023 Platelets (Bld) [#/Vol] 209 10 3/uL 150-450 [facility] RBC Auto (Bld) [#/Vol]on RBC (Bld) [#/Vol] 3.47 10 6/uL Low 4.70-6.10 [facility] Serum or plasma albumin/glob ulin mass ratioon 10-26-2023 Albumin/Globulin [Mass ratio] 0.8 {ratio} [facility] Serum or plasma anion gap de terminationon 10-26-2023 Anion gap [Moles/Vol] 11.5 [facility] Basophils Auto (Bld) [#/Vol] on 10-17-2023 Basophils (Bld) [#/Vol] 0.0 10 3/uL 0.0-0.1 [facility] Basophils/100 WBC Auto (Bld) on 10-17-2023 Basophils/100 WBC (Bld) 0.2 % 0.2-2.0 [facility] Eosinophils/100 WBC Auto (Bl d)on 10-17-2023 Eosinophils/100 WBC (Bld) 1.6 % 0.9-7.0 [facility] Erythrocyte distribution wid th Auto (RBC) [Ratio]on 10-17-2023 Erythrocyte distribution width (RBC) [Ratio] 12.2 % 11.0-15.0 [facility] Estimated glomerular filtrat ion rate (GFR) non- Americanon 10-17-2023 GFR/1.73 sq M.predicted among non-blacks MDRD (S/P/Bld) [Vol rate/Area] mL/min/{1.73_m2} >=60 [facility] Globulin Calc (S) [Mass/Vol] on 10-17-2023 Globulin (S) [Mass/Vol] 3.5 g/dL [facility] Hematocrit Auto (Bld) [Volum e fraction]on 10-17-2023 Hematocrit (Bld) [Volume fraction] 29.1 % Low 42.0-54.0 [facility] Hemoglobin [Mass/volume] in Bloodon 10-17-2023 Hemoglobin (Bld) [Mass/Vol] 9.6 g/dL Low 14.0-18.0 [facility] Laboratory - Chemistry and C hemistry - challengeon 10-17-2023 Albumin [Mass/Vol] 2.8 g/dL Low 3.4-5.0 [facility] ALP [Catalytic activity/Vol] 99 U/L 46-116 [facility] ALT [Catalytic activity/Vol] 33 U/L 16-63 [facility] AST [Catalytic activity/Vol] 15 U/L 15-37 [facility] Bilirubin [Mass/Vol] 0.8 mg/dL 0.2-1.0 [facility] Calcium [Mass/Vol] 8.4 mg/dL Low 8.5-10.1 [facility] Chloride [Moles/Vol] 96 mmol/L Low 98-107 [facility] CO2 [Moles/Vol] 30.9 mmol/L 21.0-32.0 [facility] Creatinine [Mass/Vol] 0.84 mg/dL 0.70-1.30 [facility] GFR/1.73 sq M.predicted MDRD (S/P/Bld) [Vol rate/Area] mL/min/{1.73_m2} >=60 [facility] Glucose [Mass/Vol] 103 mg/dL 74-106 [facility] Natriuretic peptide B (Bld) [Mass/Vol] 1963.0 pg/mL High <=1800.0 [facility] Comment on above: RESULTS CALLED TO U Eder Elaine RN @BY Fuad Carmona MLT at 0617 Potassium [Moles/Vol] 3.8 mmol/L 3.5-5.1 [facility] Protein [Mass/Vol] 6.3 g/dL Low 6.4-8.2 [facility] Sodium [Moles/Vol] 130 mmol/L Low 136-145 [facility] Urea nitrogen [Mass/Vol] 28.0 mg/dL High 7.0-18.0 [facility] Urea nitrogen/Creatinine [Mass ratio] 33.3 mg/mg [facility] Laboratory - Hematology and Cell countson 10-17-2023 Immature granulocytes/100 WBC (Bld) 0.4 % 0.0-0.5 [facility] Leukocytes [#/volume] correc shyann for nucleated erythrocytes in Blood by Automated counon 10-17-2023 WBC corrected for nucl RBC Auto (Bld) [#/Vol] 9.1 10 3/uL 4.0-11.0 [facility] Lymphocytes Auto (Bld) [#/Vo l]on 10-17-2023 Lymphocytes (Bld) [#/Vol] 1.2 10 3/uL 1.2-3.8 [facility] Lymphocytes/100 WBC Auto (Bl d)on 10-17-2023 Lymphocytes/100 WBC (Bld) 13.5 % Low 20.5-60.0 [facility] MCH Auto (RBC) [Entitic mass ]on 10-17-2023 MCH (RBC) [Entitic mass] 30.2 pg 25.9-34.0 [facility] MCHC Auto (RBC) [Mass/Vol]on 10-17-2023 MCHC (RBC) [Mass/Vol] 33.0 g/dL 29.9-35.2 [facility] MCV Auto (RBC) [Entitic vol] on 10-17-2023 MCV (RBC) [Entitic vol] 91.5 fL 80.0-94.0 [facility] Monocytes Auto (Bld) [#/Vol] on 10-17-2023 Monocytes (Bld) [#/Vol] 1.1 10 3/uL High 0.3-0.8 [facility] Monocytes/100 WBC Auto (Bld) on 10-17-2023 Monocytes/100 WBC (Bld) 12.0 % 1.7-12.0 [facility] Neutrophils Auto (Bld) [#/Vo l]on 10-17-2023 Neutrophils (Bld) [#/Vol] 6.6 10 3/uL High 1.4-6.5 [facility] Neutrophils/100 WBC Auto (Bl d)on 10-17-2023 Neutrophils/100 WBC (Bld) 72.3 % 43.0-75.0 [facility] No Panel Informationon 10-16 Eosinophils # (Auto) 0.2 10 3/uL 0.0-0.7 [facility] Immature Granulocyte # (Auto) 0.04 10 3/uL High 0.00-0.03 [facility] Troponin I High Sensitivity 180.4 pg/mL High 4.0-76.1 [facility] Comment on above: RESULTS CALLED TO [...] volume (Bld) [Entitic vol] 9.7 fL 9.5-13.5 [facility] Platelets Auto (Bld) [#/Vol] on 10-17-2023 Platelets (Bld) [#/Vol] 191 10 3/uL 150-450 [facility] RBC Auto (Bld) [#/Vol]on RBC (Bld) [#/Vol] 3.18 10 6/uL Low 4.70-6.10 [facility] Serum or plasma albumin/glob ulin mass ratioon 10-17-2023 Albumin/Globulin [Mass ratio] 0.8 {ratio} [facility] Serum or plasma anion gap de terminationon 10-17-2023 Anion gap [Moles/Vol] 6.9 mmol/L [facility] Basophils Auto (Bld) [#/Vol] on 10-16-2023 Basophils (Bld) [#/Vol] 0.0 10 3/uL 0.0-0.1 [facility] Basophils/100 WBC Auto (Bld) on 10-16-2023 Basophils/100 WBC (Bld) 0.2 % 0.2-2.0 [facility] Basophils/100 WBC Manual cnt (Bld)on 10-16-2023 Basophils/100 WBC (Bld) 1.0 % 0.2-2.0 [facility] Eosinophils/100 WBC Auto (Bl d)on 10-16-2023 Eosinophils/100 WBC (Bld) 0.3 % Low 0.9-7.0 [facility] Eosinophils/100 WBC Manual c nt (Bld)on 10-16-2023 Eosinophils/100 WBC (Bld) 0.0 % Low 0.9-7.0 [facility] Erythrocyte distribution wid th Auto (RBC) [Ratio]on 10-16-2023 Erythrocyte distribution width (RBC) [Ratio] 12.4 % 11.0-15.0 [facility] Estimated glomerular filtrat ion rate (GFR) non- Americanon 10-16-2023 GFR/1.73 sq M.predicted among non-blacks MDRD (S/P/Bld) [Vol rate/Area] mL/min/{1.73_m2} >=60 [facility] Globulin Calc (S) [Mass/Vol] on 10-16-2023 Globulin (S) [Mass/Vol] 3.7 g/dL [facility] Hematocrit Auto (Bld) [Volum e fraction]on 10-16-2023 Hematocrit (Bld) [Volume fraction] 30.5 % Low 42.0-54.0 [facility] Hemoglobin [Mass/volume] in Bloodon 10-16-2023 Hemoglobin (Bld) [Mass/Vol] 10.2 g/dL Low 14.0-18.0 [facility] Laboratory - Chemistry and C hemistry - challengeon 10-16-2023 Albumin [Mass/Vol] 2.9 g/dL Low 3.4-5.0 [facility] ALP [Catalytic activity/Vol] 98 U/L 46-116 [facility] ALT [Catalytic activity/Vol] 45 U/L 16-63 [facility] AST [Catalytic activity/Vol] 19 U/L 15-37 [facility] Bilirubin [Mass/Vol] 0.8 mg/dL 0.2-1.0 [facility] Calcium [Mass/Vol] 8.3 mg/dL Low 8.5-10.1 [facility] Chloride [Moles/Vol] 97 mmol/L Low 98-107 [facility] CO2 [Moles/Vol] 31.7 mmol/L 21.0-32.0 [facility] Creatinine [Mass/Vol] 0.84 mg/dL 0.70-1.30 [facility] GFR/1.73 sq M.predicted MDRD (S/P/Bld) [Vol rate/Area] mL/min/{1.73_m2} >=60 [facility] Glucose [Mass/Vol] 94 mg/dL 74-106 [facility] Natriuretic peptide B (Bld) [Mass/Vol] 4170.0 pg/mL High <=1800.0 [facility] Comment on above: RESULTS CALLED TO PRECIOUS MURPHY RN Potassium [Moles/Vol] 3.5 mmol/L 3.5-5.1 [facility] Protein [Mass/Vol] 6.6 g/dL 6.4-8.2 [facility] Sodium [Moles/Vol] 132 mmol/L Low 136-145 [facility] Urea nitrogen [Mass/Vol] 31.0 mg/dL High 7.0-18.0 [facility] Urea nitrogen/Creatinine [Mass ratio] 36.9 mg/mg [facility] Laboratory - Hematology and Cell countson 10-16-2023 Lymphocytes/100 WBC (Bld) 12.0 % Low 20.5-60.0 [facility] Monocytes/100 WBC (Bld) 11.0 % 1.7-12.0 [facility] Immature granulocytes/100 WBC (Bld) 0.3 % 0.0-0.5 [facility] Leukocytes [#/volume] correc shyann for nucleated erythrocytes in Blood by Automated counon 10-16-2023 WBC corrected for nucl RBC Auto (Bld) [#/Vol] 11.6 10 3/uL High 4.0-11.0 [facility] Lymphocytes Auto (Bld) [#/Vo l]on 10-16-2023 Lymphocytes (Bld) [#/Vol] 1.4 10 3/uL 1.2-3.8 [facility] Lymphocytes/100 WBC Auto (Bl d)on 10-16-2023 Lymphocytes/100 WBC (Bld) 14.6 % Low 20.5-60.0 [facility] MCH Auto (RBC) [Entitic mass ]on 10-16-2023 MCH (RBC) [Entitic mass] 30.4 pg 25.9-34.0 [facility] MCHC Auto (RBC) [Mass/Vol]on 10-16-2023 MCHC (RBC) [Mass/Vol] 33.4 g/dL 29.9-35.2 [facility] MCV Auto (RBC) [Entitic vol] on 10-16-2023 MCV (RBC) [Entitic vol] 91.0 fL 80.0-94.0 [facility] Monocytes Auto (Bld) [#/Vol] on 10-16-2023 Monocytes (Bld) [#/Vol] 1.1 10 3/uL High 0.3-0.8 [facility] Monocytes/100 WBC Auto (Bld) on 10-16-2023 Monocytes/100 WBC (Bld) 12.3 % High 1.7-12.0 [facility] Neutrophils Auto (Bld) [#/Vo l]on 10-16-2023 Neutrophils (Bld) [#/Vol] 6.7 10 3/uL High 1.4-6.5 [facility] Neutrophils/100 WBC Auto (Bl d)on 10-16-2023 Neutrophils/100 WBC (Bld) 72.3 % 43.0-75.0 [facility] No Panel Informationon 10-15 Absolute Basophils (Manual) 0.11 10 3/uL High 0.00-0.10 [facility] Eosinophils # (Manual) 0.00 10 3/uL 0.00-0.70 [facility] Lymphocytes # (Manual) 1.39 10 3/uL 1.20-3.80 [facility] Monocytes # (Manual) 1.27 10 3/uL High 0.30-0.80 [facility] Segmented Neutrophils # (Manual) 8.81 10 3/uL High 1.4-6.5 [facility] Aerobic Culture Result 1 \R\ Result 3\R\ 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 [facility] Comment on above: [facility], Aerobic Culture Result 2 \R\ Result 4\R\ 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 [facility] Comment on above: [facility], Gram Stain Comment (LAB) [facility] Gram Stain Result 1 Positive [facility] Comment on above: [facility], Gram Stain Result 2 Negative [facility] Comment on above: [facility], Miscellaneous Test Comment See comment [facility] Comment on above: Specimen Source: S - Sputum - Sputum - 300.100 Sputum Other Cells \R\ White Blood Cells [facility] Sputum Other Cells 2 \R\ Epithelial Cell s\R\ Few [facility] Comment on above: [facility], Eosinophils # (Auto) 0.0 10 3/uL 0.0-0.7 [facility] Immature Granulocyte # (Auto) 0.03 10 3/uL 0.00-0.03 [facility] Troponin I High Sensitivity 209.6 pg/mL High 4.0-76.1 [facility] Comment on above: RESULTS CALLED TO [...] volume (Bld) [Entitic vol] 9.5 fL 9.5-13.5 [facility] Platelets Auto (Bld) [#/Vol] on 10-16-2023 Platelets (Bld) [#/Vol] 240 10 3/uL 150-450 [facility] RBC Auto (Bld) [#/Vol]on RBC (Bld) [#/Vol] 3.35 10 6/uL Low 4.70-6.10 [facility] Segmented neutrophils/100 WB C Manual cnt (Bld)on 10-16-2023 Segmented neutrophils/100 WBC (Bld) 76.0 % High 43.0-75.0 [facility] Serum or plasma albumin/glob ulin mass ratioon 10-16-2023 Albumin/Globulin [Mass ratio] 0.8 {ratio} [facility] Serum or plasma anion gap de terminationon 10-16-2023 Anion gap [Moles/Vol] 6.8 mmol/L [facility] Basophils Auto (Bld) [#/Vol] on 10-15-2023 Basophils (Bld) [#/Vol] 0.0 10 3/uL 0.0-0.1 [facility] Basophils/100 WBC Auto (Bld) on 10-15-2023 Basophils/100 WBC (Bld) 0.0 % Low 0.2-2.0 [facility] Cholesterol in LDL Calc [Mas s/Vol]on 10-15-2023 Cholesterol in LDL [Mass/Vol] 39.0 mg/dL [facility] Comment on above: <100 mg/dl [id number] 0-129 mg/dl NEAR OR ABOVE [id number] mg/dl BORDERLINE [id number] mg/dl HIGH>190 mg/dl VERY HIGH Cholesterol in VLDL Calc [Ma ss/Vol]on 10-15-2023 Cholesterol in VLDL [Mass/Vol] 11.2 mg/dL [facility] Eosinophils/100 WBC Auto (Bl d)on 10-15-2023 Eosinophils/100 WBC (Bld) 0.0 % Low 0.9-7.0 [facility] Erythrocyte distribution wid th Auto (RBC) [Ratio]on 10-15-2023 Erythrocyte distribution width (RBC) [Ratio] 12.4 % 11.0-15.0 [facility] Estimated glomerular filtrat ion rate (GFR) non- Americanon 10-15-2023 GFR/1.73 sq M.predicted among non-blacks MDRD (S/P/Bld) [Vol rate/Area] mL/min/{1.73_m2} >=60 [facility] Globulin Calc (S) [Mass/Vol] on 10-15-2023 Globulin (S) [Mass/Vol] 3.5 g/dL [facility] Hematocrit Auto (Bld) [Volum e fraction]on 10-15-2023 Hematocrit (Bld) [Volume fraction] 28.8 % Low 42.0-54.0 [facility] Hemoglobin [Mass/volume] in Bloodon 10-15-2023 Hemoglobin (Bld) [Mass/Vol] 9.6 g/dL Low 14.0-18.0 [facility] Laboratory - Chemistry and C hemistry - challengeon 10-15-2023 Albumin [Mass/Vol] 2.9 g/dL Low 3.4-5.0 [facility] ALP [Catalytic activity/Vol] 100 U/L 46-116 [facility] ALT [Catalytic activity/Vol] 50 U/L 16-63 [facility] AST [Catalytic activity/Vol] 27 U/L 15-37 [facility] Bilirubin [Mass/Vol] 0.8 mg/dL 0.2-1.0 [facility] Calcium [Mass/Vol] 8.7 mg/dL 8.5-10.1 [facility] Chloride [Moles/Vol] 99 mmol/L 98-107 [facility] Cholesterol [Mass/Vol] 89 mg/dL <=200 [facility] Cholesterol in HDL [Mass/Vol] 39 mg/dL Low 40-60 [facility] Comment on above: > or =60 mg/dl - LOW CARDIOVASCULAR RISK<40 mg/dl - HIGH CARDIOVASCULAR RISK CO2 [Moles/Vol] 26.8 mmol/L 21.0-32.0 [facility] Creatinine [Mass/Vol] 0.83 mg/dL 0.70-1.30 [facility] GFR/1.73 sq M.predicted MDRD (S/P/Bld) [Vol rate/Area] mL/min/{1.73_m2} >=60 [facility] Glucose [Mass/Vol] 137 mg/dL High 74-106 [facility] Magnesium [Mass/Vol] 1.6 mg/dL Low 1.8-2.4 [facility] Potassium [Moles/Vol] 3.9 mmol/L 3.5-5.1 [facility] Protein [Mass/Vol] 6.4 g/dL 6.4-8.2 [facility] Sodium [Moles/Vol] 134 mmol/L Low 136-145 [facility] Triglyceride [Mass/Vol] 56 mg/dL <=150 [facility] TSH Qn 0.543 m[IU]/L 0.358-3.74 0 [facility] Urea nitrogen [Mass/Vol] 20.0 mg/dL High 7.0-18.0 [facility] Urea nitrogen/Creatinine [Mass ratio] 24.1 mg/mg [facility] Laboratory - Hematology and Cell countson 10-15-2023 Immature granulocytes/100 WBC (Bld) 0.4 % 0.0-0.5 [facility] Leukocytes [#/volume] correc shyann for nucleated erythrocytes in Blood by Automated counon 10-15-2023 WBC corrected for nucl RBC Auto (Bld) [#/Vol] 8.2 10 3/uL 4.0-11.0 [facility] Lymphocytes Auto (Bld) [#/Vo l]on 10-15-2023 Lymphocytes (Bld) [#/Vol] 0.8 10 3/uL Low 1.2-3.8 [facility] Lymphocytes/100 WBC Auto (Bl d)on 10-15-2023 Lymphocytes/100 WBC (Bld) 9.2 % Low 20.5-60.0 [facility] MCH Auto (RBC) [Entitic mass ]on 10-15-2023 MCH (RBC) [Entitic mass] 30.3 pg 25.9-34.0 [facility] MCHC Auto (RBC) [Mass/Vol]on 10-15-2023 MCHC (RBC) [Mass/Vol] 33.3 g/dL 29.9-35.2 [facility] MCV Auto (RBC) [Entitic vol] on 10-15-2023 MCV (RBC) [Entitic vol] 90.9 fL 80.0-94.0 [facility] Monocytes Auto (Bld) [#/Vol] on 10-15-2023 Monocytes (Bld) [#/Vol] 0.7 10 3/uL 0.3-0.8 [facility] Monocytes/100 WBC Auto (Bld) on 10-15-2023 Monocytes/100 WBC (Bld) 9.0 % 1.7-12.0 [facility] Neutrophils Auto (Bld) [#/Vo l]on 10-15-2023 Neutrophils (Bld) [#/Vol] 6.7 10 3/uL High 1.4-6.5 [facility] Neutrophils/100 WBC Auto (Bl d)on 10-15-2023 Neutrophils/100 WBC (Bld) 81.4 % High 43.0-75.0 [facility] No Panel Informationon 10-14 Troponin I High Sensitivity 214.0 pg/mL High 4.0-76.1 [facility] Comment on above: RESULTS CALLED TO Josue RiveroRN)@BY Adalgisa Doherty,C ARCHITECT at 2236CUT-OFF POINTS HAVE BEEN ESTABLISHED BASED [...] Eosinophils # (Auto) 0.0 10 3/uL 0.0-0.7 [facility] Immature Granulocyte # (Auto) 0.03 10 3/uL 0.00-0.03 [facility] Platelet mean volume Auto (B ld) [Entitic vol]on 10-15-2023 Platelet mean volume (Bld) [Entitic vol] 10.1 fL 9.5-13.5 [facility] Platelets Auto (Bld) [#/Vol] on 10-15-2023 Platelets (Bld) [#/Vol] 152 10 3/uL 150-450 [facility] RBC Auto (Bld) [#/Vol]on RBC (Bld) [#/Vol] 3.17 10 6/uL Low 4.70-6.10 [facility] Serum or plasma albumin/glob ulin mass ratioon 10-15-2023 Albumin/Globulin [Mass ratio] 0.8 {ratio} [facility] Serum or plasma anion gap de terminationon 10-15-2023 Anion gap [Moles/Vol] 12.1 mmol/L [facility] Serum or plasma total choles terol/high density lipoprotein (HDL) cholesterol mass lalo 10-15-2023 Cholesterol.total/Chol esterol in HDL [Mass ratio] 2.3 {ratio} [facility] Comment on above: 3.3 - 4.4 LOW RISK4. 4 - 7.1 AVERAGE RISK7.1 - 11.0 MODERATE RISK>11.0 HIGH RISK 36on 10-14-2023 36 Pt's called ashley kurtzg that pt has been having SOB since [...] will take him to the E.R. in [place]. 1:48 pm - pt's called back to let us know that she took pt to [place] E[facility] and he was dx'd with atrial [...] a time. Dr. Bryant was updated. Normal [facility] Activated partial thrombopla stin time (aPTT) in platelet poor plasma by coagulation aon 10-14-2023 aPTT Coag (PPP) [Time] 30.8 s 22.3-36.2 [facility] Basophils Auto (Bld) [#/Vol] on 10-14-2023 Basophils (Bld) [#/Vol] 0.0 10 3/uL 0.0-0.1 [facility] Basophils/100 WBC Auto (Bld) on 10-14-2023 Basophils/100 WBC (Bld) 0.1 % Low 0.2-2.0 [facility] Eosinophils/100 WBC Auto (Bl d)on 10-14-2023 Eosinophils/100 WBC (Bld) 0.1 % Low 0.9-7.0 [facility] Erythrocyte distribution wid th Auto (RBC) [Ratio]on 10-14-2023 Erythrocyte distribution width (RBC) [Ratio] 12.2 % 11.0-15.0 [facility] Estimated glomerular filtrat ion rate (GFR) non- Americanon 10-14-2023 GFR/1.73 sq M.predicted among non-blacks MDRD (S/P/Bld) [Vol rate/Area] mL/min/{1.73_m2} >=60 [facility] Hematocrit Auto (Bld) [Volum e fraction]on 10-14-2023 Hematocrit (Bld) [Volume fraction] 31.6 % Low 42.0-54.0 [facility] Hemoglobin [Mass/volume] in Bloodon 10-14-2023 Hemoglobin (Bld) [Mass/Vol] 10.6 g/dL Low 14.0-18.0 [facility] INR in Platelet poor plasma by Coagulation assayon 10-14-2023 INR Coag (PPP) [Relative time] 1.11 {INR} [facility] Comment on above: DESIRED INR:2.0-3.0 CONDITIONS NOT LISTED BELOW2.5-3.5 FOR PROSTHETIC HEART VALVE REPLACEMENT2.5-3.5 RECURRENT THROMBOSIS Laboratory - Chemistry and C hemistry - challengeon 10-14-2023 Natriuretic peptide B (Bld) [Mass/Vol] 9227.0 pg/mL High <=1800.0 [facility] Comment on above: RESULTS CALLED TO KENDELL LOMBARDI/SHAREE IN ICU Calcium [Mass/Vol] 8.6 mg/dL 8.5-10.1 [facility] Chloride [Moles/Vol] 95 mmol/L Low 98-107 [facility] CO2 [Moles/Vol] 24.6 mmol/L 21.0-32.0 [facility] Creatinine [Mass/Vol] 0.97 mg/dL 0.70-1.30 [facility] GFR/1.73 sq M.predicted MDRD (S/P/Bld) [Vol rate/Area] mL/min/{1.73_m2} >=60 [facility] Glucose [Mass/Vol] 176 mg/dL High 74-106 [facility] Potassium [Moles/Vol] 4.1 mmol/L 3.5-5.1 [facility] Sodium [Moles/Vol] 130 mmol/L Low 136-145 [facility] Urea nitrogen [Mass/Vol] 20.0 mg/dL High 7.0-18.0 [facility] Urea nitrogen/Creatinine [Mass ratio] 20.6 mg/mg [facility] Laboratory - Hematology and Cell countson 10-14-2023 Immature granulocytes/100 WBC (Bld) 0.4 % 0.0-0.5 [facility] Leukocytes [#/volume] correc shyann for nucleated erythrocytes in Blood by Automated counon 10-14-2023 WBC corrected for nucl RBC Auto (Bld) [#/Vol] 15.7 10 3/uL High 4.0-11.0 [facility] Lymphocytes Auto (Bld) [#/Vo l]on 10-14-2023 Lymphocytes (Bld) [#/Vol] 1.4 10 3/uL 1.2-3.8 [facility] Lymphocytes/100 WBC Auto (Bl d)on 10-14-2023 Lymphocytes/100 WBC (Bld) 9.1 % Low 20.5-60.0 [facility] MCH Auto (RBC) [Entitic mass ]on 10-14-2023 MCH (RBC) [Entitic mass] 30.8 pg 25.9-34.0 [facility] MCHC Auto (RBC) [Mass/Vol]on 10-14-2023 MCHC (RBC) [Mass/Vol] 33.5 g/dL 29.9-35.2 [facility] MCV Auto (RBC) [Entitic vol] on 10-14-2023 MCV (RBC) [Entitic vol] 91.9 fL 80.0-94.0 [facility] Monocytes Auto (Bld) [#/Vol] on 10-14-2023 Monocytes (Bld) [#/Vol] 1.5 10 3/uL High 0.3-0.8 [facility] Monocytes/100 WBC Auto (Bld) on 10-14-2023 Monocytes/100 WBC (Bld) 9.6 % 1.7-12.0 [facility] Neutrophils Auto (Bld) [#/Vo l]on 10-14-2023 Neutrophils (Bld) [#/Vol] 12.7 10 3/uL High 1.4-6.5 [facility] Neutrophils/100 WBC Auto (Bl d)on 10-14-2023 Neutrophils/100 WBC (Bld) 80.7 % High 43.0-75.0 [facility] No Panel Informationon 10-13 Troponin I High Sensitivity 279.3 pg/mL High 4.0-76.1 [facility] Comment on above: RESULTS CALLED TO [...] Eosinophils # (Auto) 0.0 10 3/uL 0.0-0.7 [facility] Immature Granulocyte # (Auto) 0.07 10 3/uL High 0.00-0.03 [facility] Platelet mean volume Auto (B ld) [Entitic vol]on 10-14-2023 Platelet mean volume (Bld) [Entitic vol] 10.1 fL 9.5-13.5 [facility] Platelets Auto (Bld) [#/Vol] on 10-14-2023 Platelets (Bld) [#/Vol] 191 10 3/uL 150-450 [facility] Prothrombin time (PT)on PT Coag (PPP) [Time] 11.6 s 9.0-11.6 [facility] RBC Auto (Bld) [#/Vol]on RBC (Bld) [#/Vol] 3.44 10 6/uL Low 4.70-6.10 [facility] Serum or plasma anion gap de terminationon 10-14-2023 Anion gap [Moles/Vol] 14.5 mmol/L [facility] Telephoneon 10-14-[phone] 1940 M Date Provider Department Center 10/14/2023 NICOLE PEOPLES ONC [facility] Family History Problem Relation Age of Onset Heart disease Mother No Known Problems Father No Known Problems Sister Family Status - Relation Status Age at Mother Father Sister Alive Reason for Visit and Comments: Shortness of Breath [[id number]] [facility] 30on 10-13-2023 30 Problem: Neurosensor y [...] heavy lifting and knowing s/s for infection. [facility] 30 Daily Case Managemen t Update [...] Score: PT Recommendations: OT Recommendations: New Consults: [facility] CBCon 10-13-2023 Erythrocyte distribution width (RBC) [Ratio] 12.6 % Normal 11.5-15.0 [facility] Comment on above: Performed By: #### L [id number] #### [facility] [address] [place] [address] ERYTHROCYTE MEAN CORPUSCULAR HEMOGLOBIN CONCENTRATION (G/DL) BY AUTOMATED 33.0 g/dL Normal 32.0-35.0 [facility] Comment on above: Performed By: #### L [id number] #### [facility] [address] [place] [address] Hematocrit (Bld) [Volume fraction] 29.4 % Low 39.0-55.0 [facility] Comment on above: Performed By: #### L [id number] #### [facility] [address] [place] [address] Hemoglobin (Bld) [Mass/Vol] 9.7 g/dL Low 13.0-17.0 [facility] Comment on above: Performed By: #### L [id number] #### [facility] ([facility]) [address] [place] [address] MCH (RBC) [Entitic mass] 30.9 pg Normal 27.0-33.0 [facility] Comment on above: Performed By: #### L [id number] #### [facility] ([facility]) [address] [place] [address] MCV (RBC) [Entitic vol] 93.6 fL Normal 82.0-98.0 [facility] Comment on above: Performed By: #### L [id number] #### [facility] ([facility]) [address] [place] [address] PLATELETS (10*3/UL) IN BLOOD AUTOMATED COUNT 141 10*3/uL Low 150-400 [facility] Comment on above: Performed By: #### L [id number] #### [facility] ([facility]) [address] [place] [address] RBC (Bld) [#/Vol] 3.14 10*6/uL Low 4.20-5.70 [facility] Comment on above: Performed By: #### L [id number] #### [facility] ([facility]) [address] [place] [address] WBC (Bld) [#/Vol] 14.01 10*3/uL High 4.00-10.60 [facility] Comment on above: Performed By: #### L [id number] #### [facility] ([facility]) [address] [place] [address] COMPREHENSIVE METABOLIC PANE [place] 10-13-2023 Albumin [Mass/Vol] 3.4 g/dL Low 3.5-5.[address] [facility] Comment on above: Performed By: #### L [id number] ####[facility] ([facility])[address] [place] [address] ALP [Catalytic activity/Vol] 89 U/L Normal 34-104 [facility] Comment on above: Performed By: #### L [id number] ####[facility] ([facility])[address] [place] [address] ALT [Catalytic activity/Vol] 52 U/L Normal 7-52 [facility] Comment on above: Performed By: #### L [id number] ####[facility] ([facility])[address] [place] [address] Anion gap [Moles/Vol] 12 mmol/L Normal 7-20 [facility] Comment on above: Performed By: #### L [id number] ####[facility] ([facility])[address] [place] [address] AST [Catalytic activity/Vol] 60 U/L High 13-39 [facility] Comment on above: Performed By: #### L [id number] ####[facility] ([facility])[address] [place] [address] Bilirubin [Mass/Vol] 0.8 mg/dL Normal 0.3-1.0 [facility] Comment on above: Performed By: #### L [id number] ####[facility] ([facility])[address] [place] [address] Calcium [Mass/Vol] 8.3 mg/dL Low 8.6-10.[address] [facility] Comment on above: Performed By: #### L [id number] ####[facility] ([facility])[address] [place] [address] Chloride [Moles/Vol] 104 mmol/L Normal 98-107 [facility] Comment on above: Performed By: #### L [id number] ####[facility] ([facility])[address] [place] [address] CO2 [Moles/Vol] 22 mmol/L Normal 21-31 [facility] Comment on above: Performed By: #### L [id number] ####[facility] ([facility])[address] [place] [address] Creatinine [Mass/Vol] 0.74 mg/dL Normal 0.70-1.30 [facility] Comment on above: Performed By: #### L [id number] ####[facility] ([facility])[address] [place] [address] GLOMERULAR FILTRATION RATE ML/MIN/1.73 SQ M.PREDICTED 91.0 mL/min/1.73m*2 Normal >60.0 [facility] Comment on above: Result Comment: The [facility]???s estimated glomerular filtration rate (eGFR) will [...] of individuals. Performed By: #### L [id number] ####[facility] ([facility])[address] [place] [address] Glucose [Mass/Vol] 116 mg/dL High 70-[address] [facility] Comment on above: Performed By: #### L [id number] ####[facility] [facility] [place] [address] Potassium [Moles/Vol] 4.4 mmol/L Normal 3.5-5.1 [facility] Comment on above: Performed By: #### L [id number] ####[facility] ([facility])[address] [place] [address] Protein [Mass/Vol] 5.9 g/dL Low 6.0-8.[address] [facility] Comment on above: Performed By: #### L [id number] ####[facility] ([facility])[address] [place] [address] Sodium [Moles/Vol] 134 mmol/L Low 136-[address] [facility] Comment on above: Performed By: #### L [id number] ####[facility] ([facility])[address] [place] [address] Urea nitrogen [Mass/Vol] 17 mg/dL Normal 7-25 [facility] Comment on above: Performed By: #### L [id number] ####[facility] ([facility])[address] [place] [address] UREA NITROGEN/CREATININE (MASS RATIO) IN SER/PLAS 23.0 Normal [facility] Comment on above: Performed By: #### L [id number] ####[facility] ([facility])[address] [place] [address] DSon 10-13-2023 DS Admission Admitted 10/12/2023 for [...] Your Medications These medications were sent to [facility]/pharmacy #[id number] [place] [address] acetaminophen 500 mg tablet aspirin 81 mg [...] is performed under the ED CLIA certificate #[id number]. ARTERIAL BLOOD GAS WITH CO-OXIMETRY - Abnormal [...] HCO3 POC (more content not included)... Normal [facility] MAGNESIUMon 10-13-2023 Magnesium [Mass/Vol] 1.5 mg/dL Low 1.9-2.7 [facility] Comment on above: Performed By: #### L [id number] ####[facility] ([employer])[address] [place] [address] PHOSPHORUSon 10-13-2023 Magnesium [Mass/Vol] 4.2 mg/dL Normal 2.5-5.0 [facility] Comment on above: Performed By: #### L [id number] ####[facility] ([employer])[address] [place] [address] PROTIME-INRon 10-13-2023 INR IN PPP BY COAGULATION ASSAY 1.17 High 0.90-1.10 [facility] Comment on above: Result Comment: ACCC [...] 1995;[id number]. Performed By: #### L [id number] #### [facility] ([employer]) [address] [place] [address] PROTHROMBIN TIME (PT) IN PPP BY COAGULATION ASSAY 14.8 Seconds Normal 12.3-14.8 [facility] Comment on above: Performed By: #### L [id number] #### [facility] ([employer]) [address] [place] [address] 30on 10-12-2023 30 The patient is Moder [...] these barriers include post-op monitoring . Normal [facility] 30 Daily Case Managemen t Update [...] appropriate for patient?: Yes New Consults: Normal [facility] APTTon 10-12-2023 ACTIVATED PARTIAL THROMBOPLASTIN TIME IN PPP BY COAGULATION ASSAY 32.1 Seconds Normal 25.0-35.0 [facility] Comment on above: Order Comment: In PA CU Result Comment: Clin ical significance of the APTT is questionable in the presence of heparin. Performed By: #### L [id number] #### [facility] ([facility]) [address] [place] [address] ARTERIAL BLOOD GAS WITH CO-O XIMETRYon 10-12-2023 Base excess Calc (Bld) [Moles/Vol] -4.3000 mmol/L Low -2.0-3.0 [facility] Comment on above: Order Comment: In PA CU Performed By: #### L [id number] #### [facility] RESPIRATORY THERAPY [address] [place] [address] [place] CARBOXYHEMOGLOBIN/HEMO GLOBIN TOTAL % IN BLOOD 1.2 % Normal 0.0-3.0 [facility] Comment on above: Order Comment: In PA CU Performed By: #### L [id number] #### [facility] RESPIRATORY THERAPY [address] [place] [address] [place] CO2 (Bld) [Partial pressure] 42 mm[Hg] Normal 35-48 [facility] Comment on above: Order Comment: In PA CU Performed By: #### L [id number] #### [facility] RESPIRATORY THERAPY [address] [place] [address] [place] DEOXYGENATED HEMOGLOBIN IN BLOOD 0.3 % Low 1-5 [facility] Comment on above: Order Comment: In PA CU Performed By: #### L [id number] #### [facility] RESPIRATORY THERAPY [address] [place] [address] [place] HCO3 (Bld) [Moles/Vol] 21.6 mmol/L Normal 21.0-28.0 [facility] Comment on above: Order Comment: In PA CU Performed By: #### L [id number] #### [facility] RESPIRATORY THERAPY [address] [place] [address] [place] Hemoglobin (Bld) [Mass/Vol] 9.5 g/dL Low 11.7-17.4 [facility] Comment on above: Order Comment: In PA CU Performed By: #### L [id number] #### [facility] RESPIRATORY THERAPY [address] [place] [address] [place] LPM 4 Normal [facility] Comment on above: Order Comment: In PA CU Performed By: #### L [id number] #### [facility] RESPIRATORY THERAPY [address] [place] [address] [place] METHEMOGLOBIN/100 IN BLOOD 0.0 % Normal 0.0-1.5 [facility] Comment on above: Order Comment: In PA CU Performed By: #### L [id number] #### [facility] RESPIRATORY THERAPY [address] [place] [address] [facility] Oxygen (Bld) [Partial pressure] 137 mm[Hg] High 83-100 [facility] Comment on above: Order Comment: In PA CU Performed By: #### L [id number] #### [facility] RESPIRATORY THERAPY [address] [place] [address] [facility] OXYGEN SATURATION (%) IN ARTERIAL BLOOD 99.7 % High 94.0-98.0 [facility] Comment on above: Order Comment: In PA CU Performed By: #### L [id number] #### [facility] RESPIRATORY THERAPY [address] [place] [address] [facility] OXYGENATED HEMOGLOBIN IN BLOOD 98.4 % High 90.0-95.0 [facility] Comment on above: Order Comment: In PA CU Performed By: #### L [id number] #### [facility] RESPIRATORY THERAPY [address] [place] [address] [facility] pH (Bld) 7.32 [pH] Low 7.35-7.45 [facility] Comment on above: Order Comment: In PA CU Performed By: #### L [id number] #### [facility] RESPIRATORY THERAPY [address] [place] [address] [facility] SOURCE OF OXYGEN Nasal cannula Normal [facility] Comment on above: Order Comment: In PA CU Performed By: #### L [id number] #### [facility] RESPIRATORY THERAPY [address] [place] [address] [facility] CBCon 10-12-2023 Erythrocyte distribution width (RBC) [Ratio] 12.5 % Normal 11.5-15.0 [facility] Comment on above: Order Comment: In PA CU Performed By: #### L [id number] #### [facility] ([facility]) [address] [place] [address] ERYTHROCYTE MEAN CORPUSCULAR HEMOGLOBIN CONCENTRATION (G/DL) BY AUTOMATED 32.4 g/dL Normal 32.0-35.0 [facility] Comment on above: Order Comment: In PA CU Performed By: #### L [id number] #### [facility] ([facility]) [address] [place] [address] Hematocrit (Bld) [Volume fraction] 28.4 % Low 39.0-55.0 [facility] Comment on above: Order Comment: In PA CU Performed By: #### L [id number] #### [facility] ([facility]) [address] [place] [address] Hemoglobin (Bld) [Mass/Vol] 9.2 g/dL Low 13.0-17.0 [facility] Comment on above: Order Comment: In PA CU Performed By: #### L [id number] #### [facility] ([facility]) [address] [place] [address] MCH (RBC) [Entitic mass] 30.6 pg Normal 27.0-33.0 [facility] Comment on above: Order Comment: In PA CU Performed By: #### L [id number] #### [facility] ([facility]) [address] [place] [address] MCV (RBC) [Entitic vol] 94.4 fL Normal 82.0-98.0 [facility] Comment on above: Order Comment: In PA CU Performed By: #### L [id number] #### [facility] ([facility]) [address] [place] [address] PLATELETS (10*3/UL) IN BLOOD AUTOMATED COUNT 130 10*3/uL Low 150-400 [facility] Comment on above: Order Comment: In PA CU Performed By: #### L [id number] #### [facility] ([facility]) [address] [place] [address] RBC (Bld) [#/Vol] 3.01 10*6/uL Low 4.20-5.70 [facility] Comment on above: Order Comment: In PA CU Performed By: #### L [id number] #### [facility] [address] [place] [address] WBC (Bld) [#/Vol] 10.46 10*3/uL Normal 4.00-10.60 [facility] Comment on above: Order Comment: In PA CU Performed By: #### L [id number] #### [facility] ([facility]) [address] [place] [address] COMPREHENSIVE METABOLIC PANE Santo 10-12-2023 Albumin [Mass/Vol] 3.3 g/dL Low 3.5-5.[address] [facility] Comment on above: Order Comment: In PA CU Performed By: #### L [id number] ####[facility] ([facility])[address] [place] [address] ALP [Catalytic activity/Vol] 84 U/L Normal 34-104 [facility] Comment on above: Order Comment: In PA CU Performed By: #### L [id number] ####[facility] ([facility])[address] [place] [address] ALT [Catalytic activity/Vol] 53 U/L High 7-52 [facility] Comment on above: Order Comment: In PA CU Performed By: #### L [id number] ####[facility] ([facility])[address] [place] [address] Anion gap [Moles/Vol] 11 mmol/L Normal 7-20 [facility] Comment on above: Order Comment: In PA CU Performed By: #### L [id number] ####[facility] ([facility])[address] [place] [address] AST [Catalytic activity/Vol] 63 U/L High 13-39 [facility] Comment on above: Order Comment: In PA CU Performed By: #### L [id number] ####[facility] ([facility])[address] [place] [address] Bilirubin [Mass/Vol] 0.9 mg/dL Normal 0.3-1.0 [facility] Comment on above: Order Comment: In PA CU Performed By: #### L [id number] ####[facility] ([facility])[address] [place] [address] Calcium [Mass/Vol] 7.9 mg/dL Low 8.6-10.[address] [facility] Comment on above: Order Comment: In PA CU Performed By: #### L [id number] ####[facility] ([facility])[address] [place] [address] Chloride [Moles/Vol] 107 mmol/L Normal 98-107 [facility] Comment on above: Order Comment: In PA CU Performed By: #### L [id number] ####[facility] ([facility])[address] [place] [address] CO2 [Moles/Vol] 22 mmol/L Normal 21-31 [facility] Comment on above: Order Comment: In PA CU Performed By: #### L [id number] ####[facility] ([facility])[address] [place] [address] Creatinine [Mass/Vol] 0.73 mg/dL Normal 0.70-1.30 [facility] Comment on above: Order Comment: In PA CU Performed By: #### L [id number] ####[facility] ([facility])[address] [place] [address] GLOMERULAR FILTRATION RATE ML/MIN/1.73 SQ M.PREDICTED 91.4 mL/min/1.73m*2 Normal >60.0 [facility] Comment on above: Order Comment: In PA CU Result Comment: The [facility]???s estimated glomerular filtration rate (eGFR) will [...] of individuals. Performed By: #### L [id number] ####[facility] ([facility])[address] [place] [address] Glucose [Mass/Vol] 160 mg/dL High 70-[address] [facility] Comment on above: Order Comment: In PA CU Performed By: #### L [id number] ####[facility] ([facility])[address] [place] [address] Potassium [Moles/Vol] 4.4 mmol/L Normal 3.5-5.1 [facility] Comment on above: Order Comment: In PA CU Performed By: #### L [id number] ####[facility] ([facility])[address] [place] [address] Protein [Mass/Vol] 5.7 g/dL Low 6.0-8.[address] [facility] Comment on above: Order Comment: In PA CU Performed By: #### L [id number] ####[facility] ([facility])[address] [place] [address] Sodium [Moles/Vol] 136 mmol/L Normal 136-[address] [facility] Comment on above: Order Comment: In PA CU Performed By: #### L [id number] ####[facility] ([facility])[address] [place] [address] Urea nitrogen [Mass/Vol] 18 mg/dL Normal 7-25 [facility] Comment on above: Order Comment: In PA CU Performed By: #### L [id number] ####[facility] ([facility])[address] [place] [address] UREA NITROGEN/CREATININE (MASS RATIO) IN SER/PLAS 24.7 Normal [facility] Comment on above: Order Comment: In PA CU Performed By: #### L [id number] ####[facility] [place] [address] HISTOLOGY - TISSUE EXAMon LAB AP CASE REPORT Normal 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] Result Comment: Surg ical Pathology Case: [id number] Authorizing Provider: Amber Bryant MD Collected: 10/12/2023 1204 Ordering Location: [facility] Main Operating Room Received: 10/12/2023 1233 Pathologist: Marya Hudson MD Intraop: Luana Rivas MD Specimens: A) - Common Bile Duct, CYSTIC DUCT MARGIN B) - Gallbladder, GALLBLADDER AND PORTION OF SEGMENT 4/5 Performed By: #### L [id number] ####[facility] ([facility])[address] [place] [address] LAB AP CLINICAL INFORMATION Normal [facility] Comment on above: Order Comment: 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 Medicine Man sections are submitted as follows: B2: Soft tissue around cystic duct margin B3-5: Entire cystic defect with attached liver B6: Medicine Man section from grossly unremarkable gallbladder neck B7: Medicine Man sections from grossly unremarkablegallbladder body and fundus Quiana Newberry M.D., PGY-1 Performed By: #### L [id number] ####[facility] ([facility])[address] [place] [address] LAB AP INTRAOPERATIVE CONSULTATION [facility] Comment on above: Order Comment: Pre-o [...] Luana Rivas MD Performed By: #### L [id number] ####[facility] [place] [address] LAB AP MICROSCOPIC DESCRIPTION Microscopic examination performed. 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 Performed By: #### L [id number] ####[facility] ([facility])[address] [place] [address] HPon 10-12-2023 HP H&P reviewed. The pa tient was examined and there are no changes to the H&P. 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] Post-op Diagnosis * 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] Procedures Robot-Assisted Cholecystectomy with [address] - [place] LAPAROSCOPY SURG CHOLECYSTECTOMY Intraoperative Ultrasound and 73911 - [place] UNLISTED LAPAROSCOPIC PROCEDURE LIVER PArtial Liver Resection of segement 06/10 [address]441 - [place] UNLISTED LAPAROSCOPIC PROCEDURE LIVER Surgeons Primary: Amber [...] Amber Bryant MD 10/12/23 1204 Yes STAT [id number] Description: CYSTIC DUCT MARGIN B Gallbladder Tissue HISTOLOGY - TISSUE EXAM Amber rByant MD 10/12/23 1403 Yes STAT [id number] Staff: Intellectual Property Manager: Woody Massey RN; Lukas Chacon RN; Felicity Judge RN Relief Scrub: Rachel Martinez CST Scrub Person: Faby Garcia, LAUREN; Rachel Martinez CST Indications: Chico Baker is [...] in the left lower quadrant as an law office assistant port. Following this the 5 mm [...] The ultrasound was brought in through the law office assistant port. Intraoperative ultrasonography of the gallbladder was undertaken examining the entire gallbladder in both its longitudinal and transverse (more content not included)... Normal [facility] PHOSPHORUSon 10-12-2023 Magnesium [Mass/Vol] 3.5 mg/dL Normal 2.5-5.0 [facility] Comment on above: Order Comment: In PA CU Performed By: #### L [id number] #### [facility] ([facility]) [address] [place] [address] POCT GLUCOSE METER UNSOLICIT ED RESULTSon 10-12-2023 Glucose [Mass/Vol] 115 mg/dL High 70-[address] [facility] Comment on above: Order Comment: Waive d Testing in the ED is performed under the ED CLIA certificate #[id number]. Result Comment: spin zon Performed By: #### L [id number] ####[facility] ([facility])[address] [place] [address] POCT PERFUSION PANEL UNSOLIC ITED RESULTSon 10-12-2023 CO2 [Moles/Vol] 21.0 mmol/L Normal 21.0-29.0 [facility] Comment on above: Performed By: #### L [id number] ####[facility] ([facility])[address] [place] [address] Glucose [Mass/Vol] 132 mg/dL High 70-[address] [facility] Comment on above: Performed By: #### L [id number] ####[facility] ([facility]ER)[address] [place] [address] HCO3 (Bld) [Moles/Vol] 19.3 mmol/L Low 23.0-28.0 [facility] Comment on above: Performed By: #### L [id number] ####[facility] ([facility])[address] [place] [address] Hematocrit (Bld) [Volume fraction] 24 % Low 38-51 [facility] Comment on above: Performed By: #### L [id number] ####[facility] ([facility]ER)[address] [place] [address] Hemoglobin (Bld) [Mass/Vol] 8.2 g/dL Low 12.0-17.0 [facility] Comment on above: Performed By: #### L [id number] ####[facility] ([facility])[address] [address] POCT BASE EXCESS -7.0 mmol/L Low -2.0-3.0 [facility] Comment on above: Performed By: #### L [id number] ####[facility] ([facility]ER)[address] [place] [address] POCT IONIZED CALCIUM 1.11 mmol/L Low 1.12-1.32 [facility] Comment on above: Performed By: #### L [id number] ####[facility] ([facility]ER)[address] [address] POCT PCO2 43.3 mmHg Normal 41.0-51.0 [facility] Comment on above: Performed By: #### L [id number] ####[facility] ([facility]ER)[address] [address] POCT PH 7.26 Low 7.31-7.41 [facility] Comment on above: Performed By: #### L [id number] ####[facility] ([facility]ER)[address] [place] [address] POCT PO2 224 mmHg High 80-105 [facility] Comment on above: Performed By: #### L [id number] ####[facility] ([facility]ER)[address] [place] [address] POCT SO2 100 % High 95-98 [facility] Comment on above: Performed By: #### L [id number] ####[facility] ([facility])[address] [place] [address] Potassium [Moles/Vol] 4.0 mmol/L Normal 3.5-4.9 [facility] Comment on above: Performed By: #### L [id number] ####[facility] ([facility])[address] [place] [address] Sodium [Moles/Vol] 140 mmol/L Normal 138.0-146 . 0 [facility] Comment on above: Performed By: #### L [id number] ####[facility] ([facility])[address] [place] [address] CO2 [Moles/Vol] 21.0 mmol/L Normal 21.0-29.0 [facility] Comment on above: Performed By: #### L [id number] ####[facility] ([facility])[address] [place] [address] Glucose [Mass/Vol] 146 mg/dL High 70-[address] [facility] Comment on above: Performed By: #### L [id number] ####[facility] ([facility]ER)[address] [place] [address] HCO3 (Bld) [Moles/Vol] 19.6 mmol/L Low 23.0-28.0 [facility] Comment on above: Performed By: #### L [id number] ####[facility] ([facility]ER)[address] [place] [address] Hematocrit (Bld) [Volume fraction] 29 % Low 38-51 [facility] Comment on above: Performed By: #### L [id number] ####[facility] ([facility])[address] [place] [address] Hemoglobin (Bld) [Mass/Vol] 9.9 g/dL Low 12.0-17.0 [facility] Comment on above: Performed By: #### L [id number] ####[facility] [place] [address] POCT BASE EXCESS -5.0 mmol/L Low -2.0-3.0 [facility] Comment on above: Performed By: #### L [id number] ####[facility] ([facility])[address] [place] [address] POCT IONIZED CALCIUM 1.12 mmol/L Normal 1.12-1.32 [facility] Comment on above: Performed By: #### L [id number] ####[facility] ([facility])[address] [address] POCT PCO2 33.9 mmHg Low 41.0-51.0 [facility] Comment on above: Performed By: #### L [id number] ####[facility] ([facility])[address] [place], [place] [address] POCT PH 7.37 Normal 7.31-7.41 [facility] Comment on above: Performed By: #### L [id number] ####[facility] ([facility])[address] [place] [address] POCT PO2 230 mmHg High 80-105 [facility] Comment on above: Performed By: #### L [id number] ####[facility] ([facility])[address] [place] [address] POCT SO2 100 % High 95-98 [facility] Comment on above: Performed By: #### L [id number] ####[facility] ([facility])[address] [place] [address] Potassium [Moles/Vol] 4.2 mmol/L Normal 3.5-4.9 [facility] Comment on above: Performed By: #### L [id number] ####[facility] [place] [address] Sodium [Moles/Vol] 136 mmol/L Low 138.0-146 . 0 [facility] Comment on above: Performed By: #### L [id number] ####[facility] ([facility])[address] [place] [address] CO2 [Moles/Vol] 25.0 mmol/L Normal 21.0-29.0 [facility] Comment on above: Performed By: #### L [id number] ####[facility] ([facility])[address] [place] [address] Glucose [Mass/Vol] 162 mg/dL High 70-[address] [facility] Comment on above: Performed By: #### L [id number] ####[facility] (BE[facility]ER)[address] [place], [place] [address] HCO3 (Bld) [Moles/Vol] 23.4 mmol/L Normal 23.0-28.0 [facility] Comment on above: Performed By: #### L [id number] ####[facility] ([facility])[address] [place] [address] Hematocrit (Bld) [Volume fraction] 32 % Low 38-51 [facility] Comment on above: Performed By: #### L [id number] ####[facility] ([facility])[address] [place] [address] Hemoglobin (Bld) [Mass/Vol] 10.9 g/dL Low 12.0-17.0 [facility] Comment on above: Performed By: #### L [id number] ####[facility] ([facility])[address] [place] [address] POCT BASE EXCESS -2.0 mmol/L Normal -2.0-3.0 [facility] Comment on above: Performed By: #### L [id number] ####[facility] ([facility])[address] [place] [address] POCT IONIZED CALCIUM 1.20 mmol/L Normal 1.12-1.32 [facility] Comment on above: Performed By: #### L [id number] ####[facility] ([facility])[address] [place] [address] POCT PCO2 43.6 mmHg Normal 41.0-51.0 [facility] Comment on above: Performed By: #### L [id number] ####[facility] ([facility])[address] [place] [address] POCT PH 7.34 Normal 7.31-7.41 [facility] Comment on above: Performed By: #### L [id number] ####[facility] [place] [address] POCT PO2 225 mmHg High 80-105 [facility] Comment on above: Performed By: #### L [id number] ####[facility] ([facility] [place] [address] POCT SO2 100 % High 95-98 [facility] Comment on above: Performed By: #### L [id number] ####[facility] ([facility] [place] [address] Potassium [Moles/Vol] 4.4 mmol/L Normal 3.5-4.9 [facility] Comment on above: Performed By: #### L [id number] ####[facility] ([facility])[address] [place] [address] Sodium [Moles/Vol] 133 mmol/L Low 138.0-146 . 0 [facility] Comment on above: Performed By: #### L [id number] ####[facility] ([facility] [place] [address] PROTIME-INRon 10-12-2023 INR IN PPP BY COAGULATION ASSAY 1.19 High 0.90-1.10 [facility] Comment on above: Order Comment: [...] 1995;108:231S-246S. Performed By: #### L [id number] ####[facility] ([facility])[address] [place] [address] PROTHROMBIN TIME (PT) IN PPP BY COAGULATION ASSAY 15.0 Seconds High 12.3-14.8 [facility] Comment on above: Order Comment: In PA CU Performed By: #### L [id number] ####[facility] ([facility])[address] [place] [address] HPon 10-06-2023 SURGERY FOLLOWUP NOT E Amber [...] temperature so (more content not included)... Normal [facility] Office Visiton 10-06-2023 Follow-up visit [id number] [address] 1940 M Date Provider Department Center 10/06/2023 [id number]-[id number] BRYANT DCC ONC DCC Family History Problem Relation Age of Onset Heart disease Mother No Known Problems Father No Known Problems Sister Family Status - Relation Status Age at Mother Father Sister Alive Level of Service:32141 [place] OFFICE/OUTPATIENT ESTABLISHED LOW MDM 20 MIN Reason for Visit and Comments: Follow-up [[id number]] - Here for F/U of his gallbladder mass. Normal [facility] ANTI C3 DATon 09-17-2023 ANTI C3 ASHLEY Negative Normal [facility] Comment on above: Order Comment: 2 uni ts Performed By: #### L [id number] ####[facility], ANTI IGG DATon 09-17-2023 ANTI IGG ASHLEY Negative Normal [facility] Comment on above: Order Comment: 2 uni ts Performed By: #### L [id number] #### [facility] [address] [place] [address] ANTIBODY IDENTIFICATIONon ANTIBODY IDENTIFICATION [facility] Normal [facility] Comment on above: Order Comment: 2 uni ts Performed By: #### L [id number] #### [facility] ([facility] [address] [place] [address] Labon 09-17-[id number] 1940 M Date Provider Department Lilly 09/17/20232242-[facility] DCC LAB RESOURCE DCC DRAW DCC Family History Problem Relation Age of Onset Heart disease Mother No Known Problems Father No Known Problems Sister Family Status - Relation Status Age at Mother Father Sister Alive Normal [facility] TYPE AND SCREENon 09-17-2023 AB SCREEN Positive Normal [facility] Comment on above: Order Comment: 2 uni ts Performed By: #### L [id number] #### [facility] ([facility]) [address] [place] [address] ABO group Nom (Bld) A Normal [facility] Comment on above: Order Comment: 2 uni ts Performed By: #### L [id number] #### [facility] ([facility]) [address] [place] [address] RH TYPE IN BLOOD Positive Normal [facility] Comment on above: Order Comment: 2 uni ts Performed By: #### L [id number] #### [facility] ([facility]) [address] [place] [address] Abstracton 09-14-[id number] 1940 M Date Provider Department Center 09/14/2023 [id number] BRYANT ONC DCC Family History Problem Relation Age of Onset Heart disease Mother No Known Problems Father No Known Problems Sister Family Status - Relation Status Age at Mother Father Sister Alive Normal [facility] Abstracton 09-13-[id number] 1940 M Date Provider Department Lilly 09/13/2023 [id number], ELLEN J DCC ONC DCC Family History Problem Relation Age of Onset Heart disease Mother No Known Problems Father No Known Problems Sister Family Status - Relation Status Age at Mother Father Sister Alive Normal [facility] echo limited [facility] echo limited [facility] [address] Echocardiogram Signed Patient: Chico Baker MR#: [id number] 284 : 1940 Acct:[id number] Age/Sex: 83 / M ADM Date: 08/31/23 Loc: Room: Type: [facility] Attending Dr: Sheri Christiansen MD Ordering Provider: Sheri Christiansen MD Date of Service: 08/31/23 [facility] echo limited: I35.0 - Nonrheumatic [...] mmHg Transcribed By: SCV Performed At: 08/31/23 1456 Signed By: Judah Harrington MD 08/31/23 1723 Normal [facility] FPG ECG *CARDIOLOGY ONLY*on 08-19-2023 FPG ECG *CARDIOLOGY ONLY* [facility] [place] [address] Electrocardiograph Report Signed Patient: Chico Baker MR#: [id number] 284 : 1940 Acct:[id number] Age/Sex: 83 / M ADM Date: 08/19/23 Loc: EKGCARDIO Room: Type: DEP CLI Attending Dr: Sheri Christiansen MD Ordering Provider: [...] rhythm Normal ECG Confirmed by Sheri Christiansen ([id number]) on 08/20/2023 12:14:54 AM Referred By: Electronically Signed By:Sheri Christiansen Transcribed By: MUS Signed By Sheri Christiansen MD 4 0014 Normal [facility] 29on 08-18-2023 29 Addended by: NICOLE MONTES on: 08/19/2023 11:25 AM Modules accepted: Orders Normal [facility] APTTon 08-18-2023 ACTIVATED PARTIAL THROMBOPLASTIN TIME IN PPP BY COAGULATION ASSAY 32.1 Seconds Normal 25.0-35.0 [facility] Comment on above: Result Comment: Clin ical significance of the APTT is questionable in the presence of heparin. Performed By: #### L [id number] #### [facility] ([facility]ER) [address] [place] [address] CANCER ANTIGEN 19-9on 2023 CANCER AG 19-9 (U/ML) IN SER/PLAS <2 Normal <=35 [facility] Comment on above: Result Comment: INTE [...] or absence of malignant disease. Performed By: [employer] [address] [place] [address] Bolt Labeler: Mario Mckeon MD, PhD CLIA Number: [id number] Performed By: #### L [id number] #### [facility] ([facility]) [address] [place] [address] CBCon 08-18-2023 Erythrocyte distribution width (RBC) [Ratio] 12.6 % Normal 11.5-15.0 [facility] Comment on above: Performed By: #### L [id number] #### [facility] ([facility]) [address] [place] [address] ERYTHROCYTE MEAN CORPUSCULAR HEMOGLOBIN CONCENTRATION (G/DL) BY AUTOMATED 32.3 g/dL Normal 32.0-35.0 [facility] Comment on above: Performed By: #### L [id number] #### [facility] ([facility]) [address] [place] [address] Hematocrit (Bld) [Volume fraction] 37.8 % Low 39.0-55.0 [facility] Comment on above: Performed By: #### L [id number] #### [facility] ([facility]) [address] [place] [address] Hemoglobin (Bld) [Mass/Vol] 12.2 g/dL Low 13.0-17.0 [facility] Comment on above: Performed By: #### L [id number] #### [facility] ([facility]) [address] [place] [address] MCH (RBC) [Entitic mass] 30.7 pg Normal 27.0-33.0 [facility] Comment on above: Performed By: #### L [id number] #### [facility] ([facility]) [address] [place] [address] MCV (RBC) [Entitic vol] 95.0 fL Normal 82.0-98.0 [facility] Comment on above: Performed By: #### L [id number] #### [facility] ([facility]) [address] [place] [address] PLATELETS (10*3/UL) IN BLOOD AUTOMATED COUNT 206 10*3/uL Normal 150-400 [facility] Comment on above: Performed By: #### L [id number] #### [facility] ([facility]) [address] [place] [address] RBC (Bld) [#/Vol] 3.98 10*6/uL Low 4.20-5.70 [facility] Comment on above: Performed By: #### L [id number] #### [facility] ([facility]) [address] [place] [address] WBC (Bld) [#/Vol] 10.15 10*3/uL Normal 4.00-10.60 [facility] Comment on above: Performed By: #### L [id number] #### [facility] ([facility]) [address] [place] [address] COMPREHENSIVE METABOLIC PANE Santo 08-18-2023 Albumin [Mass/Vol] 4.1 g/dL Normal 3.5-5.[address] [facility] Comment on above: Performed By: #### L [id number] #### [facility] ([facility]) [address] [place] [address] ALP [Catalytic activity/Vol] 122 U/L High 34-104 [facility] Comment on above: Performed By: #### L [id number] #### [facility] ([facility]) [address] [place] [address] ALT [Catalytic activity/Vol] 8 U/L Normal 7-52 [facility] Comment on above: Performed By: #### L [id number] #### [facility] [address] [place] [address] Anion gap [Moles/Vol] 12 mmol/L Normal 7-20 [facility] Comment on above: Performed By: #### L [id number] #### [facility] [address] [place] [address] AST [Catalytic activity/Vol] 12 U/L Low 13-39 [facility] Comment on above: Performed By: #### L [id number] #### [facility] [address] [place] [address] Bilirubin [Mass/Vol] 0.5 mg/dL Normal 0.3-1.0 [facility] Comment on above: Performed By: #### L [id number] #### [facility] [address] [place] [address] Calcium [Mass/Vol] 8.9 mg/dL Normal 8.6-10.[address] [facility] Comment on above: Performed By: #### L [id number] #### [facility] [address] [place] [address] Chloride [Moles/Vol] 102 mmol/L Normal 98-107 [facility] Comment on above: Performed By: #### L [id number] #### [facility] ([facility]) [address] [place] [address] CO2 [Moles/Vol] 26 mmol/L Normal 21-31 [facility] Comment on above: Performed By: #### L [id number] #### [facility] [address] [place] [address] Creatinine [Mass/Vol] 1.02 mg/dL Normal 0.70-1.30 [facility] Comment on above: Performed By: #### L [id number] #### [facility] ([facility]) [address] [place] [address] GLOMERULAR FILTRATION RATE ML/MIN/1.73 SQ M.PREDICTED 73.8 mL/min/1.73m*2 Normal >60.0 [facility] Comment on above: Result Comment: The [facility]???s estimated glomerular filtration rate (eGFR) will [...] individuals. Performed By: #### L [id number] #### [facility] ([facility]) [address] [place] [address] Glucose [Mass/Vol] 100 mg/dL Normal 70-[address] [facility] Comment on above: Performed By: #### L [id number] #### [facility] ([facility]) [address] [place] [address] Potassium [Moles/Vol] 4.7 mmol/L Normal 3.5-5.1 [facility] Comment on above: Performed By: #### L [id number] #### [facility] ([facility]) [address] [place] [address] Protein [Mass/Vol] 7.8 g/dL Normal 6.0-8.[address] [facility] Comment on above: Performed By: #### L [id number] #### [facility] ([facility]) [address] [place] [address] Sodium [Moles/Vol] 135 mmol/L Low 136-[address] [facility] Comment on above: Performed By: #### L [id number] #### [facility] ([facility]) [address] [place] [address] Urea nitrogen [Mass/Vol] 24 mg/dL Normal 7-25 [facility] Comment on above: Performed By: #### L [id number] #### [facility] ([facility]) [address] [place] [address] UREA NITROGEN/CREATININE (MASS RATIO) IN SER/PLAS 23.5 Normal [facility] Comment on above: Performed By: #### L [id number] #### [facility] ([facility]) [address] [place] [address] Labon 08-18-[id number] 1940 Date Provider Department Lilly 08/18/20232241-[facility] RESOURCE [facility] Comprehensiv Family History Problem Relation Age of Onset Heart disease Mother No Known Problems Father No Known Problems Sister Family Status - Relation Status Age at Mother Father Sister Alive Normal [facility] Office Visiton 08-18-2023 Follow-up visit [id number] Clarice Baker minoo Abad 1940 M Date Provider Department Center 08/18/2023 [id number]-KSTGEKOEAMBER BRYANT DCC ONC DCC Family History Problem Relation Age of Onset Heart disease Mother No Known Problems Father No Known Problems Sister Family Status - Relation Status Age at Mother Father Sister Alive Level of Service:06530 [place] OFFICE/OUTPATIENT ESTABLISHED HIGH MDM 40 MIN Reason for Visit and Comments: Consult [484] - 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 here for evaluation of a gallbladder mass. Review MRCP that was done yesterday. Normal [facility] PROTIME-INRon 08-18-2023 INR IN PPP BY COAGULATION ASSAY 1.03 Normal 0.90-1.10 [facility] Comment on above: Result Comment: ACCC [...] 1995;108:231S-246S. Performed By: #### L [id number] #### [facility] ([facility]ER) [address] [place] [address] PROTHROMBIN TIME (PT) IN PPP BY COAGULATION ASSAY 13.5 Seconds Normal 12.3-14.8 [facility] Comment on above: Performed By: #### L [id number] #### [facility] [address] [place] [address] TYPE AND SCREENon 08-18-2023 AB SCREEN Negative Normal [facility] Comment on above: Performed By: #### L [id number] #### [facility] [address] [place] [address] ABO group Nom (Bld) A Normal [facility] Comment on above: Performed By: #### L [id number] #### [facility] [address] [place] [address] RH TYPE IN BLOOD Positive Normal [facility] Comment on above: Performed By: #### L [id number] #### [facility] ([facility]) [address] [place] [address] MR ABDOMEN WO CONTRAST MRCPo n 08-17-2023 [...] Rodriguez MD. Not Vldtd Invalid Interpretation Code [facility] Comment on above: Order Comment: Gallb ladder mass. 29on 08-13-2023 29 Addended by: MARIA EUGENIA BERRY on: 08/13/2023 11:35 AM Modules accepted: Orders Normal [facility] 29 Addended by: NICOLE MONTES on: 08/16/2023 11:34 AM Modules accepted: Orders Normal [facility] Office Visiton 08-13-2023 Follow-up visit [id number] Clariec Baker [address] 1940 M Date Provider Department Center 08/13/2023 465-MARIA EUGENIA BERRY DCC ONC DCC Family History Problem Relation Age of Onset Heart disease Mother No Known Problems Father No Known Problems Sister Family Status - Relation Status Age at Mother Father Sister Alive Level of Service:[facility] [place] 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 for Visit and Comments: 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 Patient [632] - 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 - Gallbladder mas Normal [facility] Orders Onlyon 08-04-2023 Orders Only [id number] Clarice [address] 1940 M Date Provider Department Center 08/04/2023 C6334-HFCHNKAK, HISTORICAL DCC ONC DCC No family history on file Normal [facility] CT angio abdomen pelvison CT angio abdomen pelvis [facility] [place] [address] [place] [address] CT Scan Report Signed Patient: Chico Baker MR#: [id number] 284 : 1940 Acct:[id number] Age/Sex: 83 / M ADM Date: 06/16/23 Loc: CT Room: Type: [facility] Attending Dr: Raul Quan MD Copies to: [...] aortic 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 Impression dictated by: Woody Payan Jr., DSilvestreOSilvester06/16/2023 1:59 PM Dictation Location: [place] [address] Transcribed By: [facility] 06/16/23 1359 Dictated By: Woody Payan Jr, DO 06/16/23 1351 Signed By: 06/16/23 1359 Normal [facility] ISTAT XRay CREon 06-16-2023 ISTAT GFR > 60.0 Normal [facility] Comment on above: Result Comment: PERF ORMED BY: [place] [address] PATHOLOGIST SERVICE COUNTER CASHIER ZENA CASTELLON M.D. Performed By: #### I SCRE #### [address] No Panel InformationOrdered By: Raul Quan on 06-16-2023 Bedside Estimated GFR (eGFR) > 60.0 [facility] Whole blood creatinine measu rementOrdered By: Raul Quan on 06-16-2023 Creatinine [Mass/Vol] 0.9 mg/dL Normal 0.6-1.3 [facility] Comment on above: ER/ESD physician is notified/shown all ISTAT results.Critical values may be confirmed by laboratory testing ifdeemed necessary by ER attending doctor. Result Comment: ER/E SD physician is notified/shown all ISTAT results. Critical values may be confirmed by laboratory testing if deemed necessary by ER attending doctor. Performed By: #### I SCRE #### [facility] [address] Calculus Analysison 05-12-19 24 Calcium oxalate dihydrate Infrared spectroscopy (Stone) [Mass fraction] 20 % Invalid Interpretation Code [facility] Comment on above: Performed By: #### 1 [id number] ####[facility] [address] [place] [address] Calcium oxalate monohydrate (Stone) [Mass fraction] 80 % Invalid Interpretation Code [facility] Comment on above: Performed By: #### 1 [id number] ####[facility] [address] [place] [address] Color (Stone) Brown Invalid Interpretation Code [facility] Comment on above: Performed By: #### 1 [id number] ####[facility] [address] [place] [address] Composition Comment Invalid Interpretation Code [facility] Comment on above: Result Comment: Perc entage (Represents the % composition) Performed By: #### 1 [id number] ####[facility] [address] [place] [address] Disclaimer: Comment Invalid Interpretation Code [facility] Comment on above: Result Comment: This test was developed and its performance characteristics determined by [employer]. It has not been cleared or approved by the Food and Drug Administration. Performed at: [address] [id number] Emanuel Silverman Performed By: #### 1 [id number] ####[facility] [address] [place] [address] Laboratory comment Daniel (Report) Comment Invalid Interpretation Code [facility] Comment on above: Result Comment: Phys jeff questions regarding Calculi Analysis contact [facility] at: [phone]. Performed By: #### 1 [id number] ####[facility] [address] [place] [address] Please Note: Comment Invalid Interpretation Code [facility] Comment on above: Result Comment: Calc melissa report will follow via computer, mail or embedded systems designer delivery. Performed By: #### 1 [id number] ####[facility] [address] [place] [address] Size (Stone) [Entitic vol] 2x3 Invalid Interpretation Code [facility] Comment on above: Result Comment: Mult iple pieces received. Dimensions of the largest piece reported. Performed By: #### 1 [id number] ####[facility] [address] [place] [address] Specimen source subject Nom Comment Invalid Interpretation Code [facility] Comment on above: Result Comment: Not provided Performed By: #### 1 [id number] ####[facility] [address] [place] [address] Stone Photo Comment Invalid Interpretation Code [facility] Comment on above: Result Comment: Phot ograph will follow under a separate cover Performed By: #### 1 [id number] ####[facility] [address] [place] [address] Weight (Stone) 12 mg Invalid Interpretation Code [facility] Comment on above: Performed By: #### 1 [id number] ####[facility] [address] [place] [address] Consent for Procedure/Surger yon 05-05-2023 Consent for Procedure/Surgery [id number] Normal [facility] RAD - MISCon 05-05-2023 RAD - MISC [id number] Normal [facility] Ambulatory Visit Summaryon 0 05-04-2023 Ambulatory Visit Summary CHICO BAKER:1940 Visit Date:05/04/2023 Ambulatory Visit Instructions Your Diagnosis [...] Ivelisse Hassan MD Where: [facility] Patient Educationon 05-04-19 24 Patient Education [...] ? 8 oz (237 mL) of milk, dpijjxy-zemybmpdevaw-ingkp milk, and calcium-fortifiedfruit juice. Calcium-fortified means that [...] Spinach (cooked), rhubarb, beets, sweet potatoes, and [place] chard. ? Peanuts. ? Potato chips, palauan fries, and baked potatoes with skin on. ? Nuts and nut products. ? Chocolate. ? If you regularly take a diuretic medicine, make sure to eat at least 1 or 2 servings of fruits or vegetables that are high in potassium each day. These include: ? Avocado. ? Banana. ? [place], prune, carrot, or tomato juice. ? Baked [...] fish oil, or vitamin B6. ? Take jbpo-gwl-krzjkrz and prescription medicines only as told by your health care provider. These include supplements. What foods sh (more content not included)... Normal [facility] RAD - MISCon 05-04-2023 [facility] [id number]#1.00TIFF Normal [facility] Urology Office/Clinic [...] lower urinary tract symptoms) hx TURP by [facility] 2019, prostate small on 05/11/22 CT [...] All questions/concern (more content not included)... Normal [facility] Comment on above: Result Comment: Elec tronically Signed By: Mo LEIJA, Ivelisse Schreiber\.br\Date and Time Signed: 05/04/23 12:02 EST\.br\Electronically Co-Signed By: Eleonora Belcher\.br\Date and Time Co-Signed: 05/04/23 11:47 EST Operative Reporton Operative Report [id number]#1.00TIFF Normal [facility] Physician Orderon 04-29-2023 Physician Order [id number]#1.00TIFF Normal [facility] RAD - MISCon 04-28-2023 RAD - MISC [id number]#1.00TIFF Normal [facility] Consultation Noteon 04-23-19 24 Consultation Note [id number]#1.00TIFF Normal [facility] Formson 04-23-2023 Forms [id number]#1.00TIFF Normal [facility] Consent for Procedure/Surger yon 04-21-2023 Consent for Procedure/Surgery [id number]#1.00TIFF [facility] Lab Reportson 04-21-2023 Lab Reports [id number]#1.00TIFF Normal [facility] Lab Reports [id number]#1.00TIFF Normal [facility] Activated partial thrombopla stin time (aPTT) in platelet poor plasma by coagulation aon 04-20-2023 aPTT Coag (PPP) [Time] 32.6 s 22.3-36.2 [facility] Basophils Auto (Bld) [#/Vol] on 04-20-2023 Basophils (Bld) [#/Vol] 0.1 10 3/uL 0.0-0.1 [facility] Basophils/100 WBC Auto (Bld) on 04-20-2023 Basophils/100 WBC (Bld) 0.5 % 0.2-2.0 [facility] Eosinophils/100 WBC Auto (Bl d)on 04-20-2023 Eosinophils/100 WBC (Bld) 1.2 % 0.9-7.0 [facility] Erythrocyte distribution wid th Auto (RBC) [Ratio]on 04-20-2023 Erythrocyte distribution width (RBC) [Ratio] 12.4 % 11.0-15.0 [facility] Estimated glomerular filtrat ion rate (GFR) non- Americanon 04-20-2023 GFR/1.73 sq M.predicted among non-blacks MDRD (S/P/Bld) [Vol rate/Area] mL/min/{1.73_m2} >=60 [facility] Formson 04-20-2023 Forms [id number]#1.00TIFF Normal [facility] Hematocrit Auto (Bld) [Volum e fraction]on 04-20-2023 Hematocrit (Bld) [Volume fraction] 36.7 % 42.0-54.0 [facility] Hemoglobin [Mass/volume] in Bloodon 04-20-2023 Hemoglobin (Bld) [Mass/Vol] 11.5 g/dL 14.0-18.0 [facility] INR in Platelet poor plasma by Coagulation assayon 04-20-2023 INR Coag (PPP) [Relative time] 1.01 {INR} [facility] Comment on above: DESIRED INR:2.0-3.0 CONDITIONS NOT LISTED BELOW2.5-3.5 FOR PROSTHETIC HEART VALVE REPLACEMENT2.5-3.5 RECURRENT THROMBOSIS Laboratory - Chemistry and C hemistry - challengeon 04-20-2023 Calcium [Mass/Vol] 9.0 mg/dL 8.5-10.1 [facility] Chloride [Moles/Vol] 104 mmol/L 98-107 [facility] CO2 [Moles/Vol] 28.9 mmol/L 21.0-32.0 [facility] Creatinine [Mass/Vol] 0.89 mg/dL 0.70-1.30 [facility] GFR/1.73 sq M.predicted MDRD (S/P/Bld) [Vol rate/Area] mL/min/{1.73_m2} >=60 [facility] Glucose [Mass/Vol] 133 mg/dL 74-106 [facility] Potassium [Moles/Vol] 4.6 mmol/L 3.5-5.1 [facility] Sodium [Moles/Vol] 140 mmol/L 136-145 [facility] Urea nitrogen [Mass/Vol] 15.0 mg/dL 7.0-18.0 [facility] Urea nitrogen/Creatinine [Mass ratio] 16.9 mg/mg [facility] Laboratory - Hematology and Cell countson 04-20-2023 Immature granulocytes/100 WBC (Bld) 0.3 % 0.0-0.5 [facility] Leukocytes [#/volume] correc shyann for nucleated erythrocytes in Blood by Automated counon 04-20-2023 WBC corrected for nucl RBC Auto (Bld) [#/Vol] 9.9 10 3/uL 4.0-11.0 [facility] Lymphocytes Auto (Bld) [#/Vo l]on 04-20-2023 Lymphocytes (Bld) [#/Vol] 1.1 10 3/uL 1.2-3.8 [facility] Lymphocytes/100 WBC Auto (Bl d)on 04-20-2023 Lymphocytes/100 WBC (Bld) 11.3 % 20.5-60.0 [facility] MCH Auto (RBC) [Entitic mass ]on 04-20-2023 MCH (RBC) [Entitic mass] 29.6 pg 25.9-34.0 [facility] MCHC Auto (RBC) [Mass/Vol]on 04-20-2023 MCHC (RBC) [Mass/Vol] 31.3 g/dL 29.9-35.2 [facility] MCV Auto (RBC) [Entitic vol] on 04-20-2023 MCV (RBC) [Entitic vol] 94.6 fL 80.0-94.0 [facility] Monocytes Auto (Bld) [#/Vol] on 04-20-2023 Monocytes (Bld) [#/Vol] 0.8 10 3/uL 0.3-0.8 [facility] Monocytes/100 WBC Auto (Bld) on 04-20-2023 Monocytes/100 WBC (Bld) 8.5 % 1.7-12.0 [facility] Neutrophils Auto (Bld) [#/Vo l]on 04-20-2023 Neutrophils (Bld) [#/Vol] 7.8 10 3/uL 1.4-6.5 [facility] Neutrophils/100 WBC Auto (Bl d)on 04-20-2023 Neutrophils/100 WBC (Bld) 78.2 % 43.0-75.0 [facility] No Panel Informationon 04-20 Eosinophils # (Auto) 0.1 10 3/uL 0.0-0.7 [facility] Immature Granulocyte # (Auto) 0.03 10 3/uL 0.00-0.03 [facility] Platelet mean volume Auto (B ld) [Entitic vol]on 04-20-2023 Platelet mean volume (Bld) [Entitic vol] 9.4 fL 9.5-13.5 [facility] Platelets Auto (Bld) [#/Vol] on 04-20-2023 Platelets (Bld) [#/Vol] 188 10 3/uL 150-450 [facility] Prothrombin time (PT)on 04-08 PT Coag (PPP) [Time] 10.7 s 9.0-11.6 [facility] RBC Auto (Bld) [#/Vol]on RBC (Bld) [#/Vol] 3.88 10 6/uL 4.70-6.10 [facility] Serum or plasma anion gap de terminationon 04-20-2023 Anion gap [Moles/Vol] 11.7 mmol/L [facility] RAD - MISCon 04-08-2023 RAD - MISC [id number]#1.00TIFF Normal [facility] Operative Reporton Operative Report [id number]#1.00TIFF Normal [facility] RAD - MISCon 03-25-2023 RAD - MISC [id number]#1.00TIFF Normal [facility] Consent for Procedure/Surger yon 03-22-2023 Consent for Procedure/Surgery [id number]#1.00TIFF Normal [facility] Lab Reportson 03-19-2023 Lab Reports [id number]#1.00TIFF Normal [facility] RAD - MISCon 03-19-2023 RAD - MISC [id number]#1.00TIFF [facility] Carm[facility] Reminderson 03-03-2023 Reminders - From: Faviola Clemens To: EU - Recalls Lue; Sent: 01/13/2023 10:01:25 EST Show up: 02/12/2023 10:01:00 EST Subject: LINDSEY and KUB Due Date/Time: 02/12/2023 10:01:00 EST Pt to have LINDSEY and KUB done in March at [facility]. Orders placed. Possible ESWL pending size of stones. No follow up at this time. Pt to be called with results. Called pt and reminded him to complete LINDSEY/KUB @ [facility] in the next month. Orders [...] results From: Mo LEIJA, Ivelisse Schreiber To: Fred, Sandi Chiquita; Sent: 02/25/2023 17:11:14 EST Show up: 02/25/2023 [...] KML Patient is scheduled for 03/24/22 @ [facility] Comment on above: Result Comment: Miss ing Attachment - attachment exceeds size limitation (02/19/2023) RAD - Ultrasound Report Can be viewed in source system Missing Attachment - attachment exceeds size limitation (02/19/2023) RAD - MISC Can be viewed in source system RAD - MISCon 02-22-2023 RAD - MISC [id number]#1.00TIFF [facility] RAD - Ultrasound Reporton RAD - Ultrasound Report [id number]#1.00TIFF [facility] Screenson 01-14-2023 Screens [id number]#1.00TIFF [facility] Screens [id number]#1.00TIFF [facility] Patient Educationon 01-14-20 Patient Education [...] Follow these instructions at home: ? Take yqek-dxj-iugkxwu and prescription medicines only as told by [...] the medicine (more content not included)... Normal [facility] Urology Office/Clinic Noteon 01-13-2023 Urology [...] with voice recognition artificial intelligence software, specifically [employer], [employer] and or [employer]. Substitutions may have occurred due to the inherent limitations of voice recognition and artificial intelligence software. 1. BPH with obstruction/lower urinary tract symptoms (N40.1: Benign prostatic hyperplasia with lower urinary tract symptoms) hx TURP by [facility] 2019, prostate small on 05/11/22 CT [...] stones no (more content not included)... Normal [facility] Comment on above: Result Comment: Elec tronically Signed By: Ivelisse Hassan MD\.br\Date and Time Signed: 01/13/23 16:25 EST\.br\Electronically Co-Signed By: Faviola Clemens\.br\Date and Time Co-Signed: 01/13/23 09:59 EST Screenson 10-08-2022 Screens [id number]#1.00CD:127 Normal [facility] Screens [id number]#1.00CD:127 Normal [facility] Ambulatory Visit Summaryon 0 10-07-2022 Ambulatory Visit Summary CHICO BAKER Abad :1940 Visit Date:10/07/2022 Ambulatory Visit Instructions Your Diagnosis BPH with obstruction/lower urinary tract symptoms History of kidney stones Asymptomatic microscopic hematuria 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 Tests Performed Urnls Dip Stick Auto w/o Microscopy POC 86276 Your Care Team Attending Physician - Ivelisse [...] Hassan MD Where: [facility] Carlos Normal [facility] Patient Educationon 10-08-19 Patient Education [...] Follow these instructions at home: ? Take ejmz-hga-ywkbpjq and prescription medicines only as told by [...] the medicine (more content not included)... Normal [facility] Urology Office/Clinic Noteon 10-07-2022 Urology [...] lower urinary tract symptoms) hx TURP by [facility] 2019, prostate small on 05/11/22 CT [...] neg, s (more content not included)... Normal [facility] Comment on above: Result Comment: Elec tronically Signed By: Ivelisse Hassan MD\.br\Date and Time Signed: 10/07/22 10:28 EDT\.br\Electronically Co-Signed By: Eleonora Belcher\.br\Date and Time Co-Signed: 10/07/22 09:25 EDT Consent for Procedure/Surger yon 07-29-2022 Consent for Procedure/Surgery [id number]#1.00CD:127 Normal [facility] Patient Educationon 07-29-19 Patient Education [...] these instructions at home: Medicines ? Take frvj-occ-ilsdsqk and prescription medicines only as told by [...] include cig (more content not included)... Normal [facility] Urology Office/Clinic Noteon 07-28-2022 Urology [...] (erectile d (more content not included)... Normal [facility] Comment on above: Result Comment: Elec tronically Signed By: Ivelisse Hassna MD\.br\Date and Time Signed: 07/28/22 10:49 EDT\.br\Electronically Co-Signed By: Clarissa Joaquin MA\.br\Date and Time Co-Signed: 07/28/22 10:28 EDT Blood activated clotting sue e by coagulation assayOrdered By: Raul Quan on 07-08-2022 ACT Coag (Bld) 335 s 90-139 [facility] Comment on above: Reference Range: 90- 139 (Non-heparinized) Laboratory - CoagulationOrde red By: Raul Quan on 07-08-2022 PT Coag (PPP) [Time] 11.7 s 9.0-12.9 [facility] Platelet poor plasma interna tional normalized ratio (INR) by coagulation assay (relatOrdered By: Raul Quan on 07-08-2022 INR Coag (PPP) [Relative time] 1.0 {INR} [facility] Comment on above: INR Therapeutic Rang [...] 07-01-2022 ALT [Catalytic activity/Vol] 9 U/L 7-52 [facility] Albumin [Mass/volume] in Ser um or Plasma by Bromocresol green (BCG) dye binding methoOrdered By: Raul Quan on 07-01-2022 Albumin BCG dye [Mass/Vol] 3.7 g/dL 3.5-5.7 [facility] Alkaline phosphatase [Enzyma tic activity/volume] in Serum or PlasmaOrdered By: Raul Quan on 07-01-2022 ALP [Catalytic activity/Vol] 96 U/L 34-104 [facility] Aspartate aminotransferase [ Enzymatic activity/volume] in Serum or PlasmaOrdered By: Raul Quan on 07-01-2022 AST [Catalytic activity/Vol] 14 U/L 13-39 [facility] Basophils Auto (Bld) [#/Vol] Ordered By: Raul Quan on 07-01-2022 Basophils (Bld) [#/Vol] 0.1 10*3/uL 0.0-0.2 [facility] Basophils/100 WBC Auto (Bld) Ordered By: Raul Quan on 07-01-2022 Basophils/100 WBC (Bld) 0.7 % . [facility] Bilirubin.total [Mass/volume ] in Serum or PlasmaOrdered By: Raul Quan on 07-01-2022 Bilirubin [Mass/Vol] 0.5 mg/dL 0.3-1.0 [facility] Calcium [Mass/volume] in Ser um or PlasmaOrdered By: Raul Quan on 07-01-2022 Calcium [Mass/Vol] 8.5 mg/dL 8.6-10.3 [facility] Carbon dioxide, total [Moles /volume] in Serum or PlasmaOrdered By: Raul Quan on 07-01-2022 CO2 [Moles/Vol] 24.6 mmol/L 21.0-31.0 [facility] Chloride [Moles/volume] in S aisha or PlasmaOrdered By: Raul Quan on 07-01-2022 Chloride [Moles/Vol] 100 mmol/L 98-107 [facility] Creatinine [Mass/volume] in Serum or PlasmaOrdered By: Raul Quan on 07-01-2022 Creatinine [Mass/Vol] 0.87 mg/dL 0.70-1.30 [facility] Eosinophils Auto (Bld) [#/Vo l]Ordered By: Raul Quan on 07-01-2022 Eosinophils (Bld) [#/Vol] 0.1 10*3/uL 0.0-0.45 [facility] Eosinophils/100 WBC Auto (Bl d)Ordered By: Raul Quan on 07-01-2022 Eosinophils/100 WBC (Bld) 1.5 % . [facility] Erythrocyte distribution wid th Auto (RBC) [Ratio]Ordered By: Raul Quan on 07-01-2022 Erythrocyte distribution width (RBC) [Ratio] 13.0 % 12.0-14.8 [facility] Globulin Calc (S) [Mass/Vol] Ordered By: Raul Quan on 07-01-2022 Globulin (S) [Mass/Vol] 3.4 g/dL [facility] Glucose [Mass/volume] in Ser um or PlasmaOrdered By: Raul Quan on 07-01-2022 Glucose [Mass/Vol] 163 mg/dL 70-100 [facility] Comment on above: ADA recommended refe rence rangeRandom Glucose Reference Range is dependent on time and content of last meal. Glucose of more than 200 mg/dL in a nonstressed, ambulatory subject supports the diagnosis of Diabetes Mellitus. Hematocrit Auto (Bld) [Volum e fraction]Ordered By: Raul Quan on 07-01-2022 Hematocrit (Bld) [Volume fraction] 36.4 % 38.8-50.0 [facility] Hemoglobin [Mass/volume] in BloodOrdered By: Raul Quan on 07-01-2022 Hemoglobin (Bld) [Mass/Vol] 12.1 g/dL 13.0-17.0 [facility] Leukocytes [#/volume] correc shyann for nucleated erythrocytes in Blood by Automated counOrdered By: Raul Quan on 07-01-2022 WBC corrected for nucl RBC Auto (Bld) [#/Vol] 8.5 10*3/uL 4.1-10.5 [facility] Lymphocytes Auto (Bld) [#/Vo l]Ordered By: Raul Quan on 07-01-2022 Lymphocytes (Bld) [#/Vol] 1.6 10*3/uL 1.00-4.8 [facility] Lymphocytes/100 WBC Auto (Bl d)Ordered By: Raul Quan on 07-01-2022 Lymphocytes/100 WBC (Bld) 19.3 % . [facility] MCH Auto (RBC) [Entitic mass ]Ordered By: Raul Quan on 07-01-2022 MCH (RBC) [Entitic mass] 30.2 pg 27.5-35.2 [facility] MCHC Auto (RBC) [Mass/Vol]Or dered By: Raul Quan on 07-01-2022 MCHC (RBC) [Mass/Vol] 33.3 g/dL 32.5-35.6 [facility] MCV Auto (RBC) [Entitic vol] Ordered By: Raul Quan on 07-01-2022 MCV (RBC) [Entitic vol] 90.7 fL 83.5-101 [facility] Monocytes Auto (Bld) [#/Vol] Ordered By: Raul Quan on 07-01-2022 Monocytes (Bld) [#/Vol] 0.9 10*3/uL 0.0-0.8 [facility] Monocytes/100 WBC Auto (Bld) Ordered By: Raul Quan on 07-01-2022 Monocytes/100 WBC (Bld) 11.1 % . [facility] Neutrophils Auto (Bld) [#/Vo l]Ordered By: Raul Quan on 07-01-2022 Neutrophils (Bld) [#/Vol] 5.7 10*3/uL 1.8-7.7 [facility] Neutrophils/100 WBC Auto (Bl d)Ordered By: Raul Quan on 07-01-2022 Neutrophils/100 WBC (Bld) 67.4 % . [facility] No Panel InformationOrdered By: Raul Quan on 07-01-2022 Estimated GFR (CKD-EPI) > 60.0 mL/Min [facility] Creatinine Clearance (Chem N/A [facility] Nucleated erythrocytes [Pres ence] in Blood by Automated countOrdered By: Raul Quan on 07-01-2022 Nucleated RBC Auto Ql (Bld) 0.0 /100{WBC} 0-0.5 [facility] Platelet mean volume Auto (B ld) [Entitic vol]Ordered By: Raul Quan on 07-01-2022 Platelet mean volume (Bld) [Entitic vol] 7.6 fL 6.6-10.1 [facility] Platelets Auto (Bld) [#/Vol] Ordered By: Raul Quan on 07-01-2022 Platelets (Bld) [#/Vol] 198 10*3/uL 150-450 [facility] Potassium [Moles/volume] in Serum or PlasmaOrdered By: Raul Quan on 07-01-2022 Potassium [Moles/Vol] 4.4 mmol/L 3.5-5.1 [facility] Protein [Mass/volume] in Ser um or PlasmaOrdered By: Raul Quan on 07-01-2022 Protein [Mass/Vol] 7.1 g/dL 6.4-8.9 [facility] RBC Auto (Bld) [#/Vol]Ordere d By: Raul Quan on 07-01-2022 RBC (Bld) [#/Vol] 4.01 10*6/uL 3.90-5.60 [facility] Serum or plasma albumin/glob ulin mass ratioOrdered By: Raul Quan on 07-01-2022 Albumin/Globulin [Mass ratio] 1.1 {ratio} [facility] Serum or plasma anion gap de terminationOrdered By: Raul Quan on 07-01-2022 Anion gap [Moles/Vol] 13.8 mmol/L 6.0-15.0 [facility] Sodium [Moles/volume] in Ser um or PlasmaOrdered By: Raul Quan on 07-01-2022 Sodium [Moles/Vol] 134 mmol/L 136-145 [facility] Urea nitrogen [Mass/volume] in Serum or PlasmaOrdered By: Raul Quan on 07-01-2022 Urea nitrogen [Mass/Vol] 17 mg/dL 7-25 [facility] WBC Auto (Bld) [#/Vol]Ordere d By: Raul Quan on 07-01-2022 WBC (Bld) [#/Vol] 8.5 10*3/uL 4.1-10.5 [facility] Patient Educationon 06-25-19 Patient Education Urology Hematuria, [...] these instructions at home: Medicines ? Take dsnz-hul-petqxsi and prescription medicines only as told by [...] the blood stops without treatment. ? Take pzfy-gss-wkcvvir and prescription medicines only as told by your health care provider. ? Drink enough fluid to keep your urine pale yellow. This information is not intended to replace advice given to you by your health care provider. Make sure you discuss any questions you have with your health care provider. Document Revised: 10/23/2020 Document Reviewed: 10/23/2020 [employer] Patient Education ? 2022 [employer] Normal [facility] Screenson 06-24-2022 Screens [id number]#1.00CD:127 Normal [facility] Screens [id number]#1.00CD:127 Normal [facility] Urology Office/Clinic [...] Urnls Dip Stick Auto w/o Microscopy POC 42880 Urology Procedure Order 4. Penile rash (R21: Rash and other nonspecific skin eruption) Pt states rash has completely cleared up after stopping Bactrim. Denies irritation. Head of penis is not red, but is discolored. Not bothersome. D/c use of cream. Resolved Ordered: Urology Procedure Order 5. ED (erectile dysfunction) (N52.9: Male erectile dysfunction, unspecified) (more content not included)... Normal [facility] Comment on above: Result Comment: Elec tronically Signed By: Mo LEIJA, Ivelisse Doll.br\Date and Time Signed: 06/24/22 10:24 EDT RAD - CT Reporton 05-14-2022 RAD - CT Report [id number]#1.00CD:127 Normal [facility] Creatinine (Bld) [Mass/Vol]O rdered By: Raul Quan on 05-11-2022 Creatinine [Mass/Vol] 0.9 mg/dL 0.6-1.3 [facility] Comment on above: ER/ESD physician is notified/shown all ISTAT results.Critical values may be confirmed by laboratory testing ifdeemed necessary by ER attending doctor. No Panel InformationOrdered By: Raul Quan on 05-11-2022 POC Estimated GFR > 60 [facility] Comment on above: GFR estimated refere nce range: According to KDOQI guidelines, <60 ml/min/1.73m2 is sufficient to diagnose a patient with chronic kidney disease. POC Estimated GFR Non- Amer > 60 [facility] URINALYSISOrdered By: Kirstie sanchez on 04-15-2022 [...] Interpretation Code Negative [facility] UA Auto SS [place].plasma/[place] .RBC (Bld) [Mass ratio] 21-30 /HPF Invalid [...] Desc Random Urine (04/15/22 12:14 PM) Normal [facility] UA Auto SS Urobilinogen Qn (U) 0.8450191 {Nikki'U}/dL Normal 0.0 - 1.0 EU/dL FT [...] Interpretation Code Negative [facility] UA Auto SS [place].plasma/[place] .RBC (Bld) [Mass ratio] 4-20 /HPF Normal [...] [facility] UA Auto SS Urobilinogen Qn (U) 0.5866836 {Nikki'U}/dL Normal 0.0 - 1.0 EU/dL [facility] UA Auto SS WBC Auto Ql (U) 1+ *ABN* (02/11/22 10:38 AM) Invalid Interpretation Code Negative [facility] UA Auto SS WBC LM.HPF (Urine sed) [#/Area] 0-5 /HPF Normal 0-5/HPF [facility] UA Auto SS Basophils Auto (Bld) [#/Vol] Ordered By: Raul Quan on 02-05-2022 Basophils (Bld) [#/Vol] 0.1 10*3/uL 0.0-0.2 [facility] Basophils/100 WBC Auto (Bld) Ordered By: Raul Quan on 02-05-2022 Basophils/100 WBC (Bld) 0.6 % . [facility] Creatinine and Glomerular fi ltration rate.predicted panel (S/P/Bld)Ordered By: Raul Quan on 02-05-2022 Creatinine [Mass/Vol] 0.94 mg/dL 0.64-1.27 [facility] Eosinophils Auto (Bld) [#/Vo l]Ordered By: Raul Quan on 02-05-2022 Eosinophils (Bld) [#/Vol] 0.1 10*3/uL 0.0-0.45 [facility] Eosinophils/100 WBC Auto (Bl d)Ordered By: Raul Quan on 02-05-2022 Eosinophils/100 WBC (Bld) 0.7 % . [facility] Erythrocyte distribution wid th Auto (RBC) [Ratio]Ordered By: Raul Quan on 02-05-2022 Erythrocyte distribution width (RBC) [Ratio] 13.8 % 12.0-14.8 [facility] Estimated glomerular filtrat ion rate (GFR) non- AmericanOrdered By: Rual Quan on 02-05-2022 GFR/1.73 sq M.predicted among non-blacks MDRD (S/P/Bld) [Vol rate/Area] > 60 mL/Min [facility] Hematocrit Auto (Bld) [Volum e fraction]Ordered By: Raul Quan on 02-05-2022 Hematocrit (Bld) [Volume fraction] 34.6 % 38.8-50.0 [facility] Hemoglobin [Mass/volume] in BloodOrdered By: Raul Quan on 02-05-2022 Hemoglobin (Bld) [Mass/Vol] 11.4 g/dL 13.0-17.0 [facility] Leukocytes [#/volume] correc shynan for nucleated erythrocytes in Blood by Automated counOrdered By: Raul Quan on 02-05-2022 WBC corrected for nucl RBC Auto (Bld) [#/Vol] 10.3 10*3/uL 4.1-10.5 [facility] Lymphocytes Auto (Bld) [#/Vo l]Ordered By: Raul Quan on 02-05-2022 Lymphocytes (Bld) [#/Vol] 1.5 10*3/uL 1.00-4.8 [facility] Lymphocytes/100 WBC Auto (Bl d)Ordered By: Raul Quan on 02-05-2022 Lymphocytes/100 WBC (Bld) 14.4 % . [facility] MCH Auto (RBC) [Entitic mass ]Ordered By: Raul Quan on 02-05-2022 MCH (RBC) [Entitic mass] 30.1 pg 27.5-35.2 [facility] MCHC Auto (RBC) [Mass/Vol]Or dered By: Raul Quan on 02-05-2022 MCHC (RBC) [Mass/Vol] 32.9 g/dL 32.5-35.6 [facility] MCV Auto (RBC) [Entitic vol] Ordered By: Raul Quan on 02-05-2022 MCV (RBC) [Entitic vol] 91.6 fL 83.5-101 [facility] Monocytes Auto (Bld) [#/Vol] Ordered By: Raul Quan on 02-05-2022 Monocytes (Bld) [#/Vol] 1.5 10*3/uL 0.0-0.8 [facility] Monocytes/100 WBC Auto (Bld) Ordered By: Raul Quan on 02-05-2022 Monocytes/100 WBC (Bld) 14.8 % . [facility] Neutrophils Auto (Bld) [#/Vo l]Ordered By: Raul Quan on 02-05-2022 Neutrophils (Bld) [#/Vol] 7.1 10*3/uL 1.8-7.7 [facility] Neutrophils/100 WBC Auto (Bl d)Ordered By: Raul Quan on 02-05-2022 Neutrophils/100 WBC (Bld) 69.5 % . [facility] No Panel InformationOrdered By: Raul Quan on 02-05-2022 Estimated GFR () > 60 mL/Min [facility] Comment on above: GFR estimated refere nce range: According to KDOQI guidelines, <60 ml/min/1.73m2 is sufficient to diagnose a patient with chronic kidney disease. Pharmacy Creatinine Clearance (Chem 57.50 [facility] Nucleated erythrocytes [Pres ence] in Blood by Automated countOrdered By: Raul Quan on 02-05-2022 Nucleated RBC Auto Ql (Bld) 0.1 /100{WBC} 0-0.5 [facility] Platelet mean volume Auto (B ld) [Entitic vol]Ordered By: Raul Quan on 02-05-2022 Platelet mean volume (Bld) [Entitic vol] 7.9 fL 6.6-10.1 [facility] Platelets Auto (Bld) [#/Vol] Ordered By: Raul Quan on 02-05-2022 Platelets (Bld) [#/Vol] 142 10*3/uL 150-450 [facility] Comment on above: Delta: 198 on -0825 RBC Auto (Bld) [#/Vol]Ordere d By: Raul Quan on 02-05-2022 RBC (Bld) [#/Vol] 3.77 10*6/uL 3.90-5.60 [facility] Serum or plasma anion gap de terminationOrdered By: Raul Quan on 02-05-2022 Anion gap [Moles/Vol] 10.4 mmol/L 6.0-15.0 [facility] Serum or plasma calcium richy urement (mass/volume)Ordered By: Raul Quan on 02-05-2022 Calcium [Mass/Vol] 8.4 mg/dL 8.2-10.2 [facility] Serum or plasma chloride young surement (moles/volume)Ordered By: Raul Quan on 02-05-2022 Chloride [Moles/Vol] 101 mmol/L 95-114 [facility] Serum or plasma glucose richy urement (mass/volume)Ordered By: Raul Quan on 02-05-2022 Glucose [Mass/Vol] 109 mg/dL 70-100 [facility] Comment on above: ADA recommended refe rence rangeRandom Glucose Reference Range is dependent on time and content of last meal. Glucose of more than 200 mg/dL in a nonstressed, ambulatory subject supports the diagnosis of Diabetes Mellitus. Serum or plasma potassium me asurement (moles/volume)Ordered By: Raul Quan on 02-05-2022 Potassium [Moles/Vol] 4.6 mmol/L 3.5-5.1 [facility] Serum or plasma sodium measu rement (moles/volume)Ordered By: Raul Quan on 02-05-2022 Sodium [Moles/Vol] 135 mmol/L 136-146 [facility] Serum or plasma total carbon dioxide measurement (moles/volume)Ordered By: Raul Quan on 02-05-2022 CO2 [Moles/Vol] 28.2 mmol/L 22.0-30.0 [facility] Serum or plasma urea nitroge n measurement (mass/volume)Ordered By: Raul Quan on 02-05-2022 Urea nitrogen [Mass/Vol] 11 mg/dL 9- [facility] WBC Auto (Bld) [#/Vol]Ordere d By: Raul Quan on 02-05-2022 WBC (Bld) [#/Vol] 10.3 10*3/uL 4.1-10.5 [facility] Covid-19 PCR (CVDTBH)on 01-07 SARS-CoV-2 (COVID-19) RNA JESSIE+probe Ql (Unsp spec) Not detected Normal NOT DETECTED [facility] Comment on above: Result Comment: This test is not yet approved or cleared by the [place] FDA. When there are no FDA-approved or cleared tests available, and other criteria are met, FDA can make tests available under an emergency access mechanism called an Emergency Use Authorization (EUA). The EUA for this test is supported by the [employer] of Health and Human Service's (HHS's) declaration [...] SARS-CoV-2. Performed By: #### C VDTB #### [facility] [address] [place] [address] Dr. Jodi Oglesby CBC AUTO DIFFon 12-08-2021 BASO # 0.1 103/ul Normal 0.0-0.1 [facility] Comment on above: Performed By: #### D ATA1C #### [facility] [address] [place] [address] Dr. Jodi Oglesby Basophils/100 WBC (Bld) 0.5 % Normal 0.2-2.0 [facility] Comment on above: Performed By: #### D ATA1C #### [facility] [address] [place] [address] Dr. Jodi Oglesby EO # 0.1 103/ul Normal 0.0-0.7 [facility] Comment on above: Performed By: #### D ATA1C #### [facility] [address] [place] [address] Dr. Jodi Oglesby Eosinophils/100 WBC (Bld) 1.4 % Normal 0.9-7.0 [facility] Comment on above: Performed By: #### D ATA1C #### [facility] [address] [place] [address] Dr. Jodi Oglesby Erythrocyte distribution width (RBC) [Ratio] 13.0 % Normal 11.0-15.0 [facility] Comment on above: Performed By: #### D ATA1C #### [facility] [address] [place] [address] Dr. Jodi Oglesby Hematocrit (Bld) [Volume fraction] 36.1 % Critically low 42.0-54.0 [facility] Comment on above: Performed By: #### D ATA1C #### [facility] [address] [place] [address] Dr. Jodi Oglesby Hemoglobin (Bld) [Mass/Vol] 11.2 g/dL Critically low 14.0-18.0 [facility] Comment on above: Performed By: #### D ATA1C #### [facility] [address] [place] [address] Dr. Jodi Oglesby IG # 0.04 10e3/ul Critically high 0.00-0.03 [facility] Comment on above: Performed By: #### D ATA1C #### [facility] [address] [place] [address] Dr. Jodi Oglesby IG % 0.4 % Normal 0.0-0.5 [facility] Comment on above: Performed By: #### D ATA1C #### [facility] [address] [place] [address] Dr. Jodi Oglesby LYMPH # 1.8 103/ul Normal 1.2-3.8 [facility] Comment on above: Performed By: #### D ATA1C #### [facility] [address] [place] [address] Dr. Jodi Oglesby Lymphocytes/100 WBC (Bld) 17.2 % Critically low 20.5-60.0 [facility] Comment on above: Performed By: #### D ATA1C #### [facility] [address] [place] [address] Dr. Jodi Oglesby MANUAL DIFF REQ NO Normal [facility] Comment on above: Performed By: #### D ATA1C #### [facility] [address] [place] [address] Dr. Jodi Oglesby MCH (RBC) [Entitic mass] 30.4 pg Normal 25.9-34.0 [facility] Comment on above: Performed By: #### D ATA1C #### [facility] [address] [place] [address] Dr. Jodi Oglesby MCHC (RBC) [Mass/Vol] 31.0 g/dL Normal 29.9-35.2 [facility] Comment on above: Performed By: #### D ATA1C #### [facility] [address] [place] [address] Dr. Jodi Oglesby MCV (RBC) [Entitic vol] 98.1 fL Critically high 80.0-94.0 [facility] Comment on above: Performed By: #### D ATA1C #### [facility] [address] [place] [address] Dr. Jodi Oglesby MONO # 1.0 103/ul Critically high 0.3-0.8 [facility] Comment on above: Performed By: #### D ATA1C #### [facility] [address] [place] [address] Dr. Jodi Oglesby Monocytes/100 WBC (Bld) 9.8 % Normal 1.7-12.0 [facility] Comment on above: Performed By: #### D ATA1C #### [facility] [address] [place] [address] Dr. Jodi Oglesby NEUT # 7.3 103/ul Critically high 1.4-6.5 [facility] Comment on above: Performed By: #### Chavez ATA1C #### [facility] [address] [place] [address] Dr. Jodi Oglesby Neutrophils/100 WBC (Bld) 70.7 % Normal 43.0-75.0 [facility] Comment on above: Performed By: #### Chavez ATA1C #### [facility] [address] [place] [address] Dr. Jodi Oglesby Platelet mean volume (Bld) [Entitic vol] 9.1 fL Critically low 9.5-13.5 [facility] Comment on above: Performed By: #### D ATA1C #### [facility] [address] [place] [address] Dr. Jodi Oglesby PLT 214 103/ul Normal 150-450 [facility] Comment on above: Performed By: #### D ATA1C #### [facility] [address] [place] [address] Dr. Jodi Oglesby RBC 3.68 106/ul Critically low 4.70-6.10 [facility] Comment on above: Performed By: #### Chavez ATA1C #### [facility] [address] [place] [address] Dr. Jodi Oglesby WBC 10.3 103/ul Normal 4.0-11.0 [facility] Comment on above: Performed By: #### D ATA1C #### [facility] [address] [place] [address] Dr. Jodi Oglesby PROF CHEM 8 (BAS METB)on Anion gap [Moles/Vol] 9.7 mmol/L Normal [facility] Comment on above: Performed By: #### C BC #### [facility] [address] [place] [address] Dr. Jodi Oglesby Calcium [Mass/Vol] 8.9 mg/dL Normal 8.5-10.1 [facility] Comment on above: Performed By: #### C BC #### [facility] [address] [place] [address] Dr. Jodi Oglesby Chloride [Moles/Vol] 102 mmol/L Normal 98-107 [facility] Comment on above: Performed By: #### C BC #### [facility] [address] [place] [address] Dr. Jodi Oglesby CO2 [Moles/Vol] 31.0 mmol/L Normal 21.0-32.0 [facility] Comment on above: Performed By: #### C BC #### [facility] [address] [place] [address] Dr. Jodi Oglesby Creatinine [Mass/Vol] 0.85 mg/dL Normal 0.70-1.30 [facility] Comment on above: Performed By: #### C BC #### [facility] [address] [place] [address] Dr. Jodi Oglesby EGFR-AF CZECH >60 Normal >=60 [facility] Comment on above: Performed By: #### C BC #### [facility] [address] [place] [address] Dr. Jodi Oglesby EGFR-NON AF CZECH >60 Normal >=60 [facility] Comment on above: Performed By: #### C BC #### [facility] [address] [place] [address] Dr. Jodi Oglesby Glucose [Mass/Vol] 106 mg/dL Normal 74-106 [facility] Comment on above: Performed By: #### C BC #### [facility] [address] [address] [address] Jodi Oglesby Potassium [Moles/Vol] 4.7 mmol/L Normal 3.5-5.1 [facility] Comment on above: Performed By: #### C BC #### [facility] [address] [address] [address] Jodi Oglesby Sodium [Moles/Vol] 138 mmol/L Normal 136-145 [facility] Comment on above: Performed By: #### C BC #### [facility] [address] [address] [address] Jodi Oglesby Urea nitrogen [Mass/Vol] 14.0 mg/dL Normal 7.0-18.0 [facility] Comment on above: Performed By: #### C BC #### [facility] [address] [place] [address] Dr. Jodi Oglesby Urea nitrogen/Creatinine [Mass ratio] 16.5 mg/mg Normal [facility] Comment on above: Performed By: #### C BC #### [facility] [address] [place] [address] Dr. Jodi Oglesby XR CHEST 2 Von [...] ROCIO RICARDO Date: 2021-12-08 16:20 Normal [facility] Covid-19 PCR (CVDTB)on 11-07 SARS-CoV-2 (COVID-19) RNA JESSIE+probe Ql (Unsp spec) Not detected Normal NOT DETECTED [facility] Comment on above: Result Comment: This test is not yet approved or cleared by the [place] FDA. When there are no FDA-approved or cleared tests available, and other criteria are met, FDA can make tests available under an emergency access mechanism called an Emergency Use Authorization (EUA). The EUA for this test is supported by the [employer] of Health and Human Service's (HHS's) declaration [...] SARS-CoV-2. Performed By: #### C VDTB #### [facility] [address] [place] [address] Dr. Jodi Oglesby CBC AUTO DIFFon 11-11-2021 BASO # 0.1 103/ul Normal 0.0-0.1 [facility] Comment on above: Performed By: #### C BC #### [facility] [address] [place] [address] Dr. Jodi Oglesby Basophils/100 WBC (Bld) 0.5 % Normal 0.2-2.0 [facility] Comment on above: Performed By: #### C BC #### [facility] [address] [place] [address] Dr. Jodi Oglesby EO # 0.2 103/ul Normal 0.0-0.7 [facility] Comment on above: Performed By: #### C BC #### [facility] [address] [place] [address] Dr. Jodi Oglesby Eosinophils/100 WBC (Bld) 1.9 % Normal 0.9-7.0 [facility] Comment on above: Performed By: #### C BC #### [facility] [address] [place] [address] Dr. Jodi Oglesby Erythrocyte distribution width (RBC) [Ratio] 13.6 % Normal 11.0-15.0 [facility] Comment on above: Performed By: #### C BC #### [facility] [address] [place] [address] Dr. Jodi Oglesby Hematocrit (Bld) [Volume fraction] 28.6 % Critically low 42.0-54.0 [facility] Comment on above: Performed By: #### C BC #### [facility] [address] [place] [address] Dr. Jodi Oglesby Hemoglobin (Bld) [Mass/Vol] 9.4 g/dL Critically low 14.0-18.0 [facility] Comment on above: Performed By: #### C BC #### [facility] [address] [place] [address] Dr. Jodi Oglesby IG # 0.08 10e3/ul Critically high 0.00-0.03 [facility] Comment on above: Performed By: #### C BC #### [facility] [address] [place] [address] Dr. Jodi Oglesby IG % 0.8 % Critically high 0.0-0.5 [facility] Comment on above: Performed By: #### C BC #### [facility] [address] [place] [address] Dr. Jodi Oglesby LYMPH # 1.3 103/ul Normal 1.2-3.8 [facility] Comment on above: Performed By: #### C BC #### [facility] [address] [place] [address] Dr. Jodi Oglesby Lymphocytes/100 WBC (Bld) 13.0 % Critically low 20.5-60.0 [facility] Comment on above: Performed By: #### C BC #### [facility] [address] [place] [address] Dr. Jodi Oglesby MANUAL DIFF REQ NO Normal [facility] Comment on above: Performed By: #### C BC #### [facility] [address] [place] [address] Dr. Jodi Oglesby MCH (RBC) [Entitic mass] 31.5 pg Normal 25.9-34.0 [facility] Comment on above: Performed By: #### C BC #### [facility] [address] [address] [address] Jodi Oglesby MCHC (RBC) [Mass/Vol] 32.9 g/dL Normal 29.9-35.2 [facility] Comment on above: Performed By: #### C BC #### [facility] [address] [address] [address] Jodi Oglesby MCV (RBC) [Entitic vol] 96.0 fL Critically high 80.0-94.0 [facility] Comment on above: Performed By: #### C BC #### [facility] [address] [address] [address] Jodi Oglesby MONO # 1.1 103/ul Critically high 0.3-0.8 [facility] Comment on above: Performed By: #### C BC #### [facility] [address] [address] [address] Jodi Oglesby Monocytes/100 WBC (Bld) 10.7 % Normal 1.7-12.0 [facility] Comment on above: Performed By: #### C BC #### [facility] [address] [address] [address] Jodi Oglesby NEUT # 7.4 103/ul Critically high 1.4-6.5 [facility] Comment on above: Performed By: #### C BC #### [facility] [address] [address] [address] Jodi Oglesby Neutrophils/100 WBC (Bld) 73.1 % Normal 43.0-75.0 [facility] Comment on above: Performed By: #### C BC #### [facility] [address] [address] [address] Jodi Oglesby Platelet mean volume (Bld) [Entitic vol] 9.3 fL Critically low 9.5-13.5 [facility] Comment on above: Performed By: #### C BC #### [facility] [address] [address] [address] Jodi Oglesby PLT 288 103/ul Normal 150-450 [facility] Comment on above: Performed By: #### C BC #### [facility] [address], [place] [address] Dr. Jodi Oglesby RBC 2.98 106/ul Critically low 4.70-6.10 [facility] Comment on above: Performed By: #### C BC #### [facility] [address], [place] [address] Dr. Jodi Oglesby WBC 10.1 103/ul Normal 4.0-11.0 [facility] Comment on above: Performed By: #### C BC #### [facility] [address], [place] [address] ABD/PELVIS WO CONon [...] TAYO CASTILLO Date: 2021-11-11 03:10 Normal [facility] Covid-19 PCR (CVDTBH)on SARS-CoV-2 (COVID-19) RNA JESSIE+probe Ql (Unsp spec) Not detected Normal NOT DETECTED [facility] Comment on above: Result Comment: When diagnostic [...] for this test is supported by the [employer] Health and Human Service's declaration that [...] used). Performed By: #### C BC #### [facility] [address] [place] [address] Dr. Jodi Oglesby OCC BLD IMMUNO SCREENon OCCULT BLOOD Negative Normal NEGATIVE [facility] Comment on above: Performed By: #### D ATA1C #### [facility] [address] [place] [address] Dr. Jodi Oglesby PROF 14(COMP METB)on 022 Albumin [Mass/Vol] 3.0 g/dL Critically low 3.4-5.0 [facility] Comment on above: Performed By: #### C MP #### [facility] [address] [place] [address] Dr. Jodi Oglesby Albumin/Globulin [Mass ratio] 0.8 {ratio} Normal [facility] Comment on above: Performed By: #### C MP #### [facility] [address] [place] [address] Dr. Jodi Oglesby ALP [Catalytic activity/Vol] 126 U/L Critically high 46-116 [facility] Comment on above: Performed By: #### C MP #### [facility] [address] [place] [address] Dr. Jodi Oglesby ALT [Catalytic activity/Vol] 22 U/L Normal 16-63 [facility] Comment on above: Performed By: #### C MP #### [facility] [address] [place] [address] Dr. Jodi Oglesby Anion gap [Moles/Vol] 16.7 mmol/L Normal [facility] Comment on above: Performed By: #### C MP #### [facility] [address] [place] [address] Dr. Jodi Oglesby AST [Catalytic activity/Vol] 23 U/L Normal 15-37 [facility] Comment on above: Performed By: #### C MP #### [facility] [address] [address] [address] Jodi Oglesby Bilirubin [Mass/Vol] 0.6 mg/dL Normal 0.2-1.0 [facility] Comment on above: Performed By: #### C MP #### [facility] [address] [address] [address] Jodi Oglesby Calcium [Mass/Vol] 8.5 mg/dL Normal 8.5-10.1 [facility] Comment on above: Performed By: #### C MP #### [facility] [address] [place] [address] Dr. Jodi Oglesby Chloride [Moles/Vol] 99 mmol/L Normal 98-107 [facility] Comment on above: Performed By: #### C MP #### [facility] [address] [place] [address] Dr. Jodi Oglesby CO2 [Moles/Vol] 27.4 mmol/L Normal 21.0-32.0 [facility] Comment on above: Performed By: #### C MP #### [facility] [address] [place] [address] Dr. Jodi Oglesby Creatinine [Mass/Vol] 0.80 mg/dL Normal 0.70-1.30 [facility] Comment on above: Performed By: #### C MP #### [facility] [address] [place] [address] Dr. Jodi Oglesby EGFR-AF CZECH >60 Normal >=60 [facility] Comment on above: Performed By: #### C MP #### [facility] [facility] [address] [place] [address] Dr. Jodi Oglesby EGFR-NON AF CZECH >60 Normal >=60 [facility] Comment on above: Performed By: #### C MP #### [facility] [address] [place] [address] Dr. Jodi Oglesby Globulin (S) [Mass/Vol] 3.9 g/dL Normal [facility] Comment on above: Performed By: #### C MP #### [facility] [address] [place] [address] Dr. Jodi Oglesby Glucose [Mass/Vol] 116 mg/dL Critically high 74-106 T [facility] Comment on above: Performed By: #### C MP #### [facility] [address] [address] [address] Jodi Oglesby Potassium [Moles/Vol] 4.1 mmol/L Normal 3.5-5.1 [facility] Comment on above: Performed By: #### C MP #### [facility] [address] [address] [address] Jodi Oglesby Protein [Mass/Vol] 6.9 g/dL Normal 6.4-8.2 [facility] Comment on above: Performed By: #### C MP #### [facility] [address] [address] [address] Jodi Oglesby Sodium [Moles/Vol] 129 mmol/L Critically low 136-145 [facility] Comment on above: Performed By: #### C MP #### [facility] [address] [address] [address] Jodi Oglesby Urea nitrogen [Mass/Vol] 15.0 mg/dL Normal 7.0-18.0 [facility] Comment on above: Performed By: #### C MP #### [facility] [address] [address] [address] Jodi Oglesby Urea nitrogen/Creatinine [Mass ratio] 18.8 mg/mg Normal [facility] Comment on above: Performed By: #### C MP #### [facility] [address] [address] [address] Jodi Oglesby PROTIMEon 11-11-2021 INR Coag (PPP) [Relative time] 1.01 {INR} Normal [facility] Comment on above: Performed By: #### P TT, PT #### [facility] [address] [place] [address] Dr. Jodi Oglesby INR GUIDELINES SEE BELOW Normal [facility] Comment on above: Result Comment: ESHA RED INR: 2.0 - 3.0 CONDITIONS NOT LISTED BELOW 2.5 - 3.5 FOR PROSTHETIC HEART VALVE REPLACEMENT 2.5 - 3.5 RECURRENT THROMBOSIS Performed By: #### P TT, PT #### [facility] [address] [place] [address] Dr. Jodi Oglesby PT Coag (PPP) [Time] 10.9 s Normal 9.0-11.6 [facility] Comment on above: Performed By: #### P TT, PT #### [facility] [address] [place] [address] Dr. Jodi Oglebsy PTTon 11-11-2021 aPTT Coag (Bld) [Time] 25.4 s Normal 22.3-36.2 [facility] Comment on above: Performed By: #### P TT, PT #### [facility] [address] [place] [address] Dr. Jodi Oglesby CBC AUTO DIFFon 10-26-2021 BASO # 0.0 103/ul Normal 0.0-0.1 [facility] Comment on above: Performed By: #### D ATA1C #### [facility] [address] [place] [address] Dr. Jodi Oglesby Basophils/100 WBC (Bld) 0.3 % Normal 0.2-2.0 [facility] Comment on above: Performed By: #### D ATA1C #### [facility] [address] [place] [address] Dr. Jodi Oglesby EO # 0.1 103/ul Normal 0.0-0.7 [facility] Comment on above: Performed By: #### D ATA1C #### [facility] [address] [place] [address] Dr. Jodi Oglesby Eosinophils/100 WBC (Bld) 0.5 % Critically low 0.9-7.0 [facility] Comment on above: Performed By: #### D ATA1C #### [facility] [address] [place] [address] Dr. Jodi Oglesby Erythrocyte distribution width (RBC) [Ratio] 12.4 % Normal 11.0-15.0 [facility] Comment on above: Performed By: #### D ATA1C #### [facility] [address] [place] [address] Dr. Jodi Oglesby Hematocrit (Bld) [Volume fraction] 39.5 % Critically low 42.0-54.0 [facility] Comment on above: Performed By: #### D ATA1C #### [facility] [address] [place] [address] Dr. Jodi Oglesby Hemoglobin (Bld) [Mass/Vol] 12.8 g/dL Critically low 14.0-18.0 [facility] Comment on above: Performed By: #### D ATA1C #### [facility] [address] [place] [address] Dr. Jodi Oglesby IG # 0.07 10e3/ul Critically high 0.00-0.03 [facility] Comment on above: Performed By: #### D ATA1C #### [facility] [address] [place] [address] Dr. Jodi Oglesby IG % 0.5 % Normal 0.0-0.5 [facility] Comment on above: Performed By: #### D ATA1C #### [facility] [address] [place] [address] Dr. Jodi Oglesby LYMPH # 0.9 103/ul Critically low 1.2-3.8 [facility] Comment on above: Performed By: #### D ATA1C #### [facility] [address] [place] [address] Dr. Jodi Oglesby Lymphocytes/100 WBC (Bld) 6.3 % Critically low 20.5-60.0 [facility] Comment on above: Performed By: #### D ATA1C #### [facility] [address] [place] [address] Dr. Jodi Oglesby MANUAL DIFF REQ NO Normal [facility] Comment on above: Performed By: #### D ATA1C #### [facility] [address] [place] [address] Dr. Jodi Oglesby MCH (RBC) [Entitic mass] 30.8 pg Normal 25.9-34.0 [facility] Comment on above: Performed By: #### D ATA1C #### [facility] [address] [place] [address] Dr. Jodi Oglesby MCHC (RBC) [Mass/Vol] 32.4 g/dL Normal 29.9-35.2 [facility] Comment on above: Performed By: #### D ATA1C #### [facility] [address] [address] [address] Jodi Oglesby MCV (RBC) [Entitic vol] 95.2 fL Critically high 80.0-94.0 [facility] Comment on above: Performed By: #### D ATA1C #### [facility] [address] [address] [address] Jodi Oglesby MONO # 0.9 103/ul Critically high 0.3-0.8 [facility] Comment on above: Performed By: #### D ATA1C #### [facility] [address] [place] [address] Dr. Jodi Oglesby Monocytes/100 WBC (Bld) 6.2 % Normal 1.7-12.0 [facility] Comment on above: Performed By: #### D ATA1C #### [facility] [address] [place] [address] Dr. Jodi Oglesby NEUT # 12.8 103/ul Critically high 1.4-6.5 [facility] Comment on above: Performed By: #### D ATA1C #### [facility] [address] [place] [address] Dr. Jodi Oglesby Neutrophils/100 WBC (Bld) 86.2 % Critically high 43.0-75.0 [facility] Comment on above: Performed By: #### D ATA1C #### [facility] [address] [place] [address] Dr. Jodi Oglesby Platelet mean volume (Bld) [Entitic vol] 9.4 fL Critically low 9.5-13.5 [facility] Comment on above: Performed By: #### D ATA1C #### [facility] [address] [place] [address] Dr. Jodi Oglesby PLT 169 103/ul Normal 150-450 [facility] Comment on above: Performed By: #### D ATA1C #### [facility] [address] [place] [address] Dr. Jodi Oglesby RBC 4.15 106/ul Critically low 4.70-6.10 [facility] Comment on above: Performed By: #### D ATA1C #### [facility] [address] [place], [place] [address] Dr. Jodi Oglesby WBC 14.8 103/ul Critically high 4.0-11.0 [facility] Comment on above: Performed By: #### D ATA1C #### [facility] [id number] Jodi Oglesby CT CHEST WO CONon [...] NICOLE SIMMS Date: 2021-10-26 17:38 Normal [facility] Covid-19 PCR (CVDTB)on 10-07 SARS-CoV-2 (COVID-19) RNA JESSIE+probe Ql (Unsp spec) Not detected Normal NOT DETECTED [facility] Comment on above: Result Comment: When diagnostic [...] for this test is supported by the [place] [employer] and Human Service's declaration that [...] used). Performed By: #### D ATA1C #### [facility] [address] [place] [address] Dr. Jodi Oglesby PROF CHEM 8 (BAS METB)on Anion gap [Moles/Vol] 11.7 mmol/L Normal [facility] Comment on above: Performed By: #### C BC #### [facility] [address] [place] [address] Dr. Jodi Oglesby Calcium [Mass/Vol] 9.2 mg/dL Normal 8.5-10.1 [facility] Comment on above: Performed By: #### C BC #### [facility] [address] [place] [address] Dr. Jodi Oglesby Chloride [Moles/Vol] 101 mmol/L Normal 98-107 [facility] Comment on above: Performed By: #### C BC #### [facility] [address] [place] [address] Dr. Jodi Oglesby CO2 [Moles/Vol] 27.6 mmol/L Normal 21.0-32.0 [facility] Comment on above: Performed By: #### C BC #### [facility] [address] [place] [address] Dr. Jodi Oglesby Creatinine [Mass/Vol] 0.98 mg/dL Normal 0.70-1.30 [facility] Comment on above: Performed By: #### C BC #### [facility] [address] [place] [address] Dr. Jodi Oglesby EGFR-AF CZECH >60 Normal >=60 [facility] Comment on above: Performed By: #### C BC #### [facility] [address] [place] [address] Dr. Jodi Oglesby EGFR-NON AF CZECH >60 Normal >=60 [facility] Comment on above: Performed By: #### C BC #### [facility] [address] [place] [address] Dr. Jodi Oglesby Glucose [Mass/Vol] 119 mg/dL Critically high 74-106 T [facility] Comment on above: Performed By: #### C BC #### [facility] [address] [place] [address] Dr. Jodi Oglesby Potassium [Moles/Vol] 4.3 mmol/L Normal 3.5-5.1 [facility] Comment on above: Performed By: #### C BC #### [facility] [address] [place] [address] Dr. Jodi Oglesby Sodium [Moles/Vol] 136 mmol/L Normal 136-145 [facility] Comment on above: Performed By: #### C BC #### [facility] [address] [place] [address] Dr. Jodi Oglesby Urea nitrogen [Mass/Vol] 15.0 mg/dL Normal 7.0-18.0 [facility] Comment on above: Performed By: #### C BC #### [facility] [address] [place] [address] Dr. Jodi Oglesby Urea nitrogen/Creatinine [Mass ratio] 15.3 mg/mg Normal [facility] Comment on above: Performed By: #### C BC #### [facility] [address] [place] [address] Dr. Jodi Oglesby XR CLAVICLE RTon 10-26-2021 [...] by: JANE ALDANA Date: 2021-10-26 15:37 Normal [facility] XR [...] DEL CHAKRABORTY Date: 2021-10-26 17:23 Normal [facility] XR HIP RT 2 3V W PELVISon [...] CHARLES ALEJANDRA Date: 2021-10-26 15:40 Normal [facility] CARDIAC STRESS/REST INJE CTIONon 10-21-2021 [facility] CARDIAC STRESS/REST INJECTION Patient Name: CHICO BAKER STUDY: MYOCARDIAL PERFUSION STRESS TEST WITH LEXISCAN Performing facility: [facility], [address] [place] [address], [address], [place] [address] [facility] Provider: Adilene Harrington MD, FACC PCP: Dr. Jori Dunham Supervising provider: Adilene Harrington MD, [facility] INDICATION: AAA Pre-operative risk assessment for AAA scheduled at [facility] on TBD. HISTORY: Gender: M; Age: 81 y/o ; Height: 0 cm; Weight: 0 kg. HTN; Carotid disease PAD AAA Denies smoking. COMPARISON: Previous nuclear testing completed [id number] at [place]. Previous echo testing completed on 2020 at [facility]. ACCESSION NUMBER(S): [id number]; [id number]; [id number] ORDERING CLINICIAN: JUDAH HARRINGTON TECHNIQUE: ONE DAY [...] Electronically signed by: ALL HUDSON MD Normal [facility] No Panel Informationon 10-21 Normal -[facility]-[address] [place] Work Phone: COVID-19 Positive/NegativeOr dered By: Raul Quan on 10-13-2021 SARS-CoV-2 (COVID-19) N gene JESSIE+probe Ql (Resp) Negative Negative [facility] Comment on above: Testing for SARS-CoV -2 by RT-PCR This test was developed and its performance characteristics determined by [employer] ([employer]) and validated at the [facility]. This test has not been FDA [...] 10-06-2021 Basophils (Bld) [#/Vol] 0.0 10*3/uL 0.0-0.2 [facility] Basophils/100 WBC Auto (Bld) Ordered By: Raul Quan on 10-06-2021 Basophils/100 WBC (Bld) 0.7 % . [facility] Blood hemoglobin measurement (mass/volume)Ordered By: Raul Quan on 10-06-2021 Hemoglobin (Bld) [Mass/Vol] 13.1 g/dL 13.0-17.0 [facility] Blood leukocytes automated c ount (number/volume)Ordered By: Raul Quan on 10-06-2021 WBC (Bld) [#/Vol] 5.2 10*3/uL 4.5-11.0 [facility] Creatinine and Glomerular fi ltration rate.predicted panel (S/P/Bld)Ordered By: Raul Quan on 10-06-2021 Creatinine [Mass/Vol] 0.98 mg/dL 0.64-1.27 [facility] Eosinophils Auto (Bld) [#/Vo l]Ordered By: Raul Quan on 10-06-2021 Eosinophils (Bld) [#/Vol] 0.1 10*3/uL 0.0-0.45 [facility] Eosinophils/100 WBC Auto (Bl d)Ordered By: Raul Quan on 10-06-2021 Eosinophils/100 WBC (Bld) 1.3 % . [facility] Erythrocyte distribution wid th Auto (RBC) [Ratio]Ordered By: Raul Quan on 10-06-2021 Erythrocyte distribution width (RBC) [Ratio] 13.3 % 12.0-14.8 [facility] Estimated glomerular filtrat ion rate (GFR) non- AmericanOrdered By: Raul Quan on 10-06-2021 GFR/1.73 sq M.predicted among non-blacks MDRD (S/P/Bld) [Vol rate/Area] > 60 mL/Min [facility] Hematocrit Auto (Bld) [Volum e fraction]Ordered By: Raul Quan on 10-06-2021 Hematocrit (Bld) [Volume fraction] 40.4 % 38.8-50.0 [facility] - Hematology and Cell countsOrdered By: Raul Quan on 10-06-2021 Nucleated RBC/100 WBC (Bld) [Ratio] 0.0 % 0-0.5 [facility] Lymphocytes Auto (Bld) [#/Vo l]Ordered By: Raul Quan on 10-06-2021 Lymphocytes (Bld) [#/Vol] 1.0 10*3/uL 1.00-4.8 [facility] Lymphocytes/100 WBC Auto (Bl d)Ordered By: Raul Quan on 10-06-2021 Lymphocytes/100 WBC (Bld) 18.4 % . [facility] MCH Auto (RBC) [Entitic mass ]Ordered By: Raul Quan on 10-06-2021 MCH (RBC) [Entitic mass] 30.9 pg 27.5-35.2 [facility] MCHC Auto (RBC) [Mass/Vol]Or dered By: Raul Quan on 10-06-2021 MCHC (RBC) [Mass/Vol] 32.5 g/dL 32.5-35.6 [facility] MCV Auto (RBC) [Entitic vol] Ordered By: Raul Quan on 10-06-2021 MCV (RBC) [Entitic vol] 95.2 fL 83.5-101 [facility] Monocytes Auto (Bld) [#/Vol] Ordered By: Raul Quan on 10-06-2021 Monocytes (Bld) [#/Vol] 0.6 10*3/uL 0.0-0.8 [facility] Monocytes/100 WBC Auto (Bld) Ordered By: Raul Quan on 10-06-2021 Monocytes/100 WBC (Bld) 12.0 % . [facility] Neutrophils Auto (Bld) [#/Vo l]Ordered By: Raul Quan on 10-06-2021 Neutrophils (Bld) [#/Vol] 3.5 10*3/uL 1.8-7.7 [facility] Neutrophils/100 WBC Auto (Bl d)Ordered By: Raul Quan on 10-06-2021 Neutrophils/100 WBC (Bld) 67.6 % . [facility] No Panel InformationOrdered By: Raul Quan on 10-06-2021 Estimated GFR () > 60 mL/Min [facility] Comment on above: GFR estimated refere nce range: According to KDOQI guidelines, <60 ml/min/1.73m2 is sufficient to diagnose a patient with chronic kidney disease. Pharmacy Creatinine Clearance (Chem N/A [facility] Platelet mean volume Auto (B ld) [Entitic vol]Ordered By: Raul Quan on 10-06-2021 Platelet mean volume (Bld) [Entitic vol] 8.1 fL 6.6-10.1 [facility] Platelets Auto (Bld) [#/Vol] Ordered By: Raul Quan on 10-06-2021 Platelets (Bld) [#/Vol] 185 10*3/uL 150-450 [facility] RBC Auto (Bld) [#/Vol]Ordere d By: Raul Quan on 10-06-2021 RBC (Bld) [#/Vol] 4.25 10*6/uL 3.90-5.60 [facility] Serum or plasma calcium richy urement (mass/volume)Ordered By: Raul Quan on 10-06-2021 Calcium [Mass/Vol] 9.0 mg/dL 8.2-10.2 [facility] Serum or plasma chloride young surement (moles/volume)Ordered By: Raul Quan on 10-06-2021 Chloride [Moles/Vol] 101 mmol/L 95-114 [facility] Serum or plasma glucose richy urement (mass/volume)Ordered By: Raul Quan on 10-06-2021 Glucose [Mass/Vol] 187 mg/dL 70-100 [facility] Comment on above: ADA recommended refe rence range Random Glucose Reference Range is dependent on time and content of last meal. Glucose of more than 200 mg/dL in a nonstressed, ambulatory subject supports the diagnosis of Diabetes Mellitus. Serum or plasma potassium me asurement (moles/volume)Ordered By: Raul Quan on 10-06-2021 Potassium [Moles/Vol] 4.0 mmol/L 3.5-5.1 [facility] Serum or plasma sodium measu rement (moles/volume)Ordered By: Raul Quan on 10-06-2021 Sodium [Moles/Vol] 135 mmol/L 136-146 [facility] Serum or plasma total carbon dioxide measurement (moles/volume)Ordered By: Raul Quan on 10-06-2021 CO2 [Moles/Vol] 25.1 mmol/L 22.0-30.0 [facility] Serum or plasma urea nitroge n measurement (mass/volume)Ordered By: Raul Quan on 10-06-2021 Urea nitrogen [Mass/Vol] 13 mg/dL 9 [facility] CBC AUTO DIFFon 09-22-2021 BASO # 0.0 103/ul Normal 0.0-0.1 [facility] Comment on above: Performed By: #### C BC #### [facility] [address] [place] [address] Dr. Jodi Oglesby Basophils/100 WBC (Bld) 0.3 % Normal 0.2-2.0 [facility] Comment on above: Performed By: #### C BC #### [facility] [address] [place] [address] Dr. Jodi Oglesby EO # 0.1 103/ul Normal 0.0-0.7 [facility] Comment on above: Performed By: #### C BC #### [facility] [address] [place] [address] Dr. Jodi Oglesby Eosinophils/100 WBC (Bld) 0.8 % Critically low 0.9-7.0 [facility] Comment on above: Performed By: #### C BC #### [facility] [address] [place] [address] Dr. Jodi Oglesby Erythrocyte distribution width (RBC) [Ratio] 12.5 % Normal 11.0-15.0 [facility] Comment on above: Performed By: #### C BC #### [facility] [address] [place] [address] Dr. Jodi Oglesby Hematocrit (Bld) [Volume fraction] 43.6 % Normal 42.0-54.0 [facility] Comment on above: Performed By: #### C BC #### [facility] [address] [place] [address] Dr. Jodi Oglesby Hemoglobin (Bld) [Mass/Vol] 14.1 g/dL Normal 14.0-18.0 [facility] Comment on above: Performed By: #### C BC #### [facility] [address] [place] [address] Dr. Jodi Oglesby IG # 0.03 10e3/ul Normal 0.00-0.03 [facility] Comment on above: Performed By: #### C BC #### [facility] [address] [place] [address] Dr. Jodi Oglesby IG % 0.3 % Normal 0.0-0.5 [facility] Comment on above: Performed By: #### C BC #### [facility] [address] [place] [address] Dr. Jodi Oglesby LYMPH # 1.5 103/ul Normal 1.2-3.8 [facility] Comment on above: Performed By: #### C BC #### [facility] [address] [place] [address] Dr. Jodi Oglesby Lymphocytes/100 WBC (Bld) 17.2 % Critically low 20.5-60.0 [facility] Comment on above: Performed By: #### C BC #### [facility] [address] [place] [address] Dr. Jodi Oglesby MANUAL DIFF REQ NO Normal [facility] Comment on above: Performed By: #### C BC #### [facility] [address] [place] [address] Dr. Jodi Oglesby MCH (RBC) [Entitic mass] 31.1 pg Normal 25.9-34.0 [facility] Comment on above: Performed By: #### C BC #### [facility] [address] [place] [address] Dr. Jodi Oglesby MCHC (RBC) [Mass/Vol] 32.3 g/dL Normal 29.9-35.2 [facility] Comment on above: Performed By: #### C BC #### [facility] [address] [place] [address] Dr. Jodi Oglesby MCV (RBC) [Entitic vol] 96.0 fL Critically high 80.0-94.0 [facility] Comment on above: Performed By: #### C BC #### [facility] [address] [place] [address] Dr. Jodi Oglesby MONO # 1.0 103/ul Critically high 0.3-0.8 [facility] Comment on above: Performed By: #### C BC #### [facility] [address] [address] [address] Jodi Oglesby Monocytes/100 WBC (Bld) 10.8 % Normal 1.7-12.0 [facility] Comment on above: Performed By: #### C BC #### [facility] [address] [address] [address] Jodi Oglesby NEUT # 6.2 103/ul Normal 1.4-6.5 [facility] Comment on above: Performed By: #### C BC #### [facility] [address] [place] [address] Dr. Jodi Oglesby Neutrophils/100 WBC (Bld) 70.6 % Normal 43.0-75.0 [facility] Comment on above: Performed By: #### C BC #### [facility] [address] [place] [address] Dr. Jodi Oglesby Platelet mean volume (Bld) [Entitic vol] 9.6 fL Normal 9.5-13.5 [facility] Comment on above: Performed By: #### C BC #### [facility] [address] [place] [address] Dr. Jodi Oglesby PLT 206 103/ul Normal 150-450 [facility] Comment on above: Performed By: #### C BC #### [facility] [address] [place] [address] Dr. Jodi Oglesby RBC 4.54 106/ul Critically low 4.70-6.10 [facility] Comment on above: Performed By: #### C BC #### [facility] [address] [place] [address] Dr. Jodi Oglesby WBC 8.8 103/ul Normal 4.0-11.0 [facility] Comment on above: Performed By: #### C BC #### [facility] [address] [place] [address] Dr. Jodi Oglesby PROF CHEM 8 (BAS METB)on Anion gap [Moles/Vol] 9.5 mmol/L Normal [facility] Comment on above: Performed By: #### B MP #### [facility] [address] [address] [address] Jodi Oglesby Calcium [Mass/Vol] 9.4 mg/dL Normal 8.5-10.1 [facility] Comment on above: Performed By: #### B MP #### [facility] [address] [address] [address] Jodi Oglesby Chloride [Moles/Vol] 100 mmol/L Normal 98-107 [facility] Comment on above: Performed By: #### B MP #### [facility] [address] [address] [address] Jodi Oglesby CO2 [Moles/Vol] 33.2 mmol/L Critically high 21.0-32.0 [facility] Comment on above: Performed By: #### B MP #### [facility] [address] [address] [address] Jodi Oglesby Creatinine [Mass/Vol] 0.99 mg/dL Normal 0.70-1.30 [facility] Comment on above: Performed By: #### B MP #### [facility] [address] [address] [address] Jdoi Oglesby EGFR-AF CZECH >60 Normal >=60 [facility] Comment on above: Performed By: #### B MP #### [facility] [address] [address] [address] Jodi Oglesby EGFR-NON AF CZECH >60 Normal >=60 [facility] Comment on above: Performed By: #### B MP #### [facility] [address] [address] [address] Jodi Oglesby Glucose [Mass/Vol] 109 mg/dL Critically high 74-106 [facility] Comment on above: Performed By: #### B MP #### [facility] [address] [address] [address] Jodi Oglesby Potassium [Moles/Vol] 4.7 mmol/L Normal 3.5-5.1 [facility] Comment on above: Performed By: #### B MP #### [facility] [address] [address] [address] Jodi Oglesby Sodium [Moles/Vol] 138 mmol/L Normal 136-145 [facility] Comment on above: Performed By: #### B MP #### [facility] [address] [address] [address] Jodi Oglesby Urea nitrogen [Mass/Vol] 17.0 mg/dL Normal 7.0-18.0 [facility] Comment on above: Performed By: #### B MP #### [facility] [address] [address] [address] Jodi Oglesby Urea nitrogen/Creatinine [Mass ratio] 17.2 mg/mg Normal [facility] Comment on above: Performed By: #### B MP #### [facility] [address] [place] [address] Dr. Jodi Oglesby Creatinine (Bld) [Mass/Vol]O rdered By: Tamar Perea on 09-18-2021 Creatinine [Mass/Vol] 0.8 mg/dL 0.6-1.3 [facility] Comment on above: ER/ESD physician is notified/shown all ISTAT results. Critical values may be confirmed by laboratory testing if deemed necessary by ER attending doctor. No Panel InformationOrdered By: Tamar Perea on 09-18-2021 POC Estimated GFR > 60 [facility] Comment on above: GFR estimated refere nce range: According to KDOQI guidelines, <60 ml/min/1.73m2 is sufficient to diagnose a patient with chronic kidney disease. POC Estimated GFR Non- Amer > 60 [facility] CBC AUTO DIFFon 08-12-2021 BASO # 0.0 103/ul Normal 0.0-0.1 [facility] Comment on above: Performed By: #### C BC #### [facility] [address] [place] [address] Dr. Jodi Oglesby Basophils/100 WBC (Bld) 0.3 % Normal 0.2-2.0 [facility] Comment on above: Performed By: #### C BC #### [facility] [address] [address] [address] Jodi Oglesby EO # 0.1 103/ul Normal 0.0-0.7 [facility] Comment on above: Performed By: #### C BC #### [facility] [address] [place] [address] Dr. Jodi Oglesby Eosinophils/100 WBC (Bld) 1.8 % Normal 0.9-7.0 [facility] Comment on above: Performed By: #### C BC #### [facility] [address] [place] [address] Dr. Jodi Oglesby Erythrocyte distribution width (RBC) [Ratio] 12.6 % Normal 11.0-15.0 [facility] Comment on above: Performed By: #### C BC #### [facility] [address] [place] [address] Dr. Jodi Oglesby Hematocrit (Bld) [Volume fraction] 40.9 % Critically low 42.0-54.0 [facility] Comment on above: Performed By: #### C BC #### [facility] [address] [place] [address] Dr. Jodi Oglesby Hemoglobin (Bld) [Mass/Vol] 13.4 g/dL Critically low 14.0-18.0 [facility] Comment on above: Performed By: #### C BC #### [facility] [address] [place] [address] Dr. Jodi Oglesby IG # 0.03 10e3/ul Normal 0.00-0.03 [facility] Comment on above: Performed By: #### C BC #### [facility] [address] [place] [address] Dr. Jodi Oglesby IG % 0.4 % Normal 0.0-0.5 [facility] Comment on above: Performed By: #### C BC #### [facility] [address] [place] [address] Dr. Jodi Oglesby LYMPH # 1.4 103/ul Normal 1.2-3.8 [facility] Comment on above: Performed By: #### C BC #### [facility] [address] [place] [address] Dr. Jodi Oglesby Lymphocytes/100 WBC (Bld) 18.6 % Critically low 20.5-60.0 [facility] Comment on above: Performed By: #### C BC #### [facility] [address] [place] [address] Dr. Jodi Oglesby MCH (RBC) [Entitic mass] 31.5 pg Normal 25.9-34.0 [facility] Comment on above: Performed By: #### C BC #### [facility] [address] [place] [address] Dr. Jodi Oglesby MCHC (RBC) [Mass/Vol] 32.8 g/dL Normal 29.9-35.2 [facility] Comment on above: Performed By: #### C BC #### [facility] [address] [place] [address] Dr. Jodi Oglesby MCV (RBC) [Entitic vol] 96.0 fL Critically high 80.0-94.0 [facility] Comment on above: Performed By: #### C BC #### [facility] [address] [place] [address] Dr. Jodi Oglesby MONO # 0.7 103/ul Normal 0.3-0.8 [facility] Comment on above: Performed By: #### C BC #### [facility] [address] [place] [address] Dr. Jodi Oglesby Monocytes/100 WBC (Bld) 9.7 % Normal 1.7-12.0 [facility] Comment on above: Performed By: #### C BC #### [facility] [address] [place] [address] Dr. Jodi Oglesby NEUT # 5.1 103/ul Normal 1.4-6.5 [facility] Comment on above: Performed By: #### C BC #### [facility] [address] [place] [address] Dr. Jodi Oglesby Neutrophils/100 WBC (Bld) 69.2 % Normal 43.0-75.0 [facility] Comment on above: Performed By: #### C BC #### [facility] [address] [place] [address] Dr. Jodi Oglesby Platelet mean volume (Bld) [Entitic vol] 9.8 fL Normal 9.5-13.5 [facility] Comment on above: Performed By: #### C BC #### [facility] [address] [place] [address] Dr. Jodi Oglesby PLT 195 103/ul Normal 150-450 [facility] Comment on above: Performed By: #### C BC #### [facility] [address] [place] [address] Dr. Jodi Oglesby RBC 4.26 106/ul Critically low 4.70-6.10 [facility] Comment on above: Performed By: #### C BC #### [facility] [address] [place] [address] Dr. Jodi Oglesby WBC 7.4 103/ul Normal 4.0-11.0 [facility] Comment on above: Performed By: #### C BC #### [facility] [address] [place] [address] Dr. Jodi Oglesby ASHLEY - TSHon 08-12-2021 TSH 1.879 uIU/mL Normal 0.358-3.74 0 [facility] Comment on above: Performed By: #### D ASHLEY LAWSONBMP #### [facility] [address] [place] [address] Dr. Jodi Oglesby TSH RANGE SEE BELOW Normal [facility] Comment on above: Result Comment: <0.3 4 UIU/ml HYPERTHYROID 0.34-5.60 UIU/ml EUTHYROID >5.60 UIU/ml HYPOTHYROID Performed By: #### D ATTSH DATBMP #### [facility] [address] [place] [address] Dr. Jodi Oglesby ASHLEY- BMP WITH LIPIDon 2021 Anion gap [Moles/Vol] 11.4 mmol/L Normal [facility] Comment on above: Performed By: #### D ATTSH, DATBMP #### [facility] [address] [place] [address] Dr. Jodi Oglesby Calcium [Mass/Vol] 8.7 mg/dL Normal 8.5-10.1 [facility] Comment on above: Performed By: #### D ATTSH, DATBMP #### [facility] [address] [address] [address] Jodi Oglesby Chloride [Moles/Vol] 105 mmol/L Normal 98-107 [facility] Comment on above: Performed By: #### D ATTSH, DATBMP #### [facility] [address] [address] [address] Jodi Oglesby Cholesterol [Mass/Vol] 113 mg/dL Normal <=200 [facility] Comment on above: Performed By: #### D ATTSH, DATBMP #### [facility] [address] [address] [address] Jodi Oglesby Cholesterol in HDL [Mass/Vol] 47 mg/dL Normal 40-60 [facility] Comment on above: Performed By: #### D ATTSH, DATBMP #### [facility] [address] [place] [address] Dr. Jodi Oglesby Cholesterol in LDL [Mass/Vol] 58.0 mg/dL Normal [facility] Comment on above: Performed By: #### D ATTSH, DATBMP #### [facility] [address] [place] [address] Dr. Jodi Oglesby CO2 [Moles/Vol] 29.0 mmol/L Normal 21.0-32.0 [facility] Comment on above: Performed By: #### D ATTSH, DATBMP #### [facility] [address] [place] [address] Dr. Jodi Oglesby Creatinine [Mass/Vol] 0.99 mg/dL Normal 0.70-1.30 [facility] Comment on above: Performed By: #### D ATTSH, DATBMP #### [facility] [address] [place] [address] Dr. Jodi Oglesby EGFR-AF CZECH >60 Normal >=60 [facility] Comment on above: Performed By: #### D ATTSH, DATBMP #### [facility] [address] [place] [address] Dr. Jodi Oglesby EGFR-NON AF CZECH >60 Normal >=60 [facility] Comment on above: Performed By: #### D ATTSH, DATBMP #### [facility] [address] [address] [address] Jodi Oglesby Glucose [Mass/Vol] 116 mg/dL Critically high 74-106 [facility] Comment on above: Performed By: #### D ATTSH, DATBMP #### [facility] [address] [address] [address] Jodi Oglesby HDL NORMAL > or = 60 mg/dl - LO W CARDIOVASCULAR RISK <40 mg/dl - HIGH CARDIOVASCULAR RISK Normal [facility] Comment on above: Performed By: #### D ATTKENDELL, DATBMP #### [facility] [address] [address] [address] Jodi Oglesby LDL CALC NORMAL SEE BELOW Normal [facility] Comment on above: Result Comment: <100 mg/dl OPTIMAL 100 - 129 mg/dl NEAR OR ABOVE OPTIMAL 130 - 159 mg/dl BORDERLINE HIGH 160 - 189 mg/dl HIGH >190 mg/dl VERY HIGH Performed By: #### D ATTSH, DATBMP #### [facility] [address] [address] [address] Jodi Oglesby Potassium [Moles/Vol] 4.4 mmol/L Normal 3.5-5.1 [facility] Comment on above: Performed By: #### D ATTSH, DATBMP #### [facility] [address] [address] [address] Jodi Oglesby Sodium [Moles/Vol] 141 mmol/L Normal 136-145 [facility] Comment on above: Performed By: #### D ATTSH, DATBMP #### [facility] [address] [address] [address] Jodi Oglesby Triglyceride [Mass/Vol] 40 mg/dL Normal <=150 [facility] Comment on above: Performed By: #### D ATTSH, DATBMP #### [facility] [address] [address] [address] Jodi Oglesby Urea nitrogen [Mass/Vol] 16.0 mg/dL Normal 7.0-18.0 [facility] Comment on above: Performed By: #### D ATTKENDELL, DATBMP #### [facility] [address] [address] [address] Jodi Oglesby Urea nitrogen/Creatinine [Mass ratio] 16.2 mg/mg Normal [facility] Comment on above: Performed By: #### D ATTSH, DATBMP #### [facility] [address] [address] [address] Jodi Oglesby VLDL CALC 8.0 mg/dL Normal [facility] Comment on above: Performed By: #### D LULU, DATBMP #### [facility] [address] [address] [address] Jodi Oglesby GLYCOHEMOGLOBIN A1Con 2021 ADA RECOMMENDATION SEE BELOW Normal [facility] Comment on above: Result Comment: ADA RECOMMENDED LIMIT 4.0 - 6.0 ADA THERAPEUTIC TARGET < 7.0 ACTION SUGGESTED > 7.0 Performed By: #### D ATA1C #### [facility] [address] [address] [address] Jodi Oglesby Glucose [Mass/Vol] 131 mg/dL Normal [facility] Comment on above: Performed By: #### D ATA1C #### [facility] [address] [address] [address] Jodi Oglesby HbA1c (Bld) [Mass fraction] 6.2 % Normal 4.5-6.2 [facility] Comment on above: Performed By: #### D ATA1C #### [facility] [address] [address] [address] Jodi Oglesby CNOVon 12-11-2020 CNOV Office Visit ([facility] ) -- CHICO BAKER ([id number]) 1940 Date Time Provider Department 12/11/20 10:45 AM POWER CATHERINE During your visit today, we recorded the following information about you: Pulse Blood pressure Weight Height 60/minute 122/78 67.6 kg 1.702 m Power Catherine MD 12/11/2020 11:17 AM Signed [facility] OUTPATIENT VISIT DATE December 11, 2020 OUTPATIENT VISIT TYPE EST PRIMARY CARE PHYSICIAN: Shailesh Dunham ([facility]) [address] [place] [address] REFERRING PHYSICIAN Power Catherine [address] [facility] [id number] CHIEF COMPLAINT: Patient presents with: Established Patient [...] Power Catherine MD Referring Provider: POWER CATHERINE [[id number]] Allergies As of Date: 12/11/2020 Noted Allergy Reaction SHALINI INHIBITORS 05/09/2015 16 - Unknown GADOLINIUM-CONTAINING CONTRAST ME*05/09/2015 16 - Unknown TETANUS VACCINES AND TOXOID 05/16/2015 16 - Unknown Date Reviewed: 12/11/2020 Reviewed by: Harika Menjivar - Fully Assessed Reason for Visit: Established Patient [175] Follow Up [171] Primary Visit Diagnosis: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 - nitroglycerin sublingual (NITROQUICK) 0.3 mg SL tablet (more content not included)... Normal [facility] 10-30-2020 CNPN Telephone ([facility]) -- CHICO BAKER ([id number]) 1940 M Date Time Provider Department 10/30/20 [...] [I71.4] Order(s):US ABD AORTA [facility] [[id number]] Order #: [id number] FUTURE Prescriptions as of 11/04/2020 - aspirin, [...] Status:Closed by SHERI MOLINA on 11/04/20 Normal [facility] Vital Signs Date Time Vital Sign Value Performing Clinician Facility 01-11-2024 11:02-0500 Body height 167.64 cm DO [employer] Work Phone: [facility] 01-11-2024 11:02-0500 Body mass index (BMI) [Ratio] 21.7 kg/m2 DO [employer] Work Phone: [facility] 01-11-2024 11:02-0500 Body temperature 97.8 [degF] DO [employer] Work Phone: [facility] 01-11-2024 11:02-0500 Body weight 61.23 kg DO [employer] Work Phone: [facility] 01-11-2024 11:02-0500 Diastolic blood pressure 60 mm[Hg] DO [employer] Work Phone: [facility] 01-11-2024 11:02-0500 Heart rate 60 /min DO [employer] Work Phone: [facility] 01-11-2024 11:02-0500 SaO2% (BldA) [Mass fraction] 96 % DO [employer] Work Phone: [facility] 01-11-2024 11:02-0500 Systolic blood pressure 122 mm[Hg] DO [employer] Work Phone: [facility] 12-22-2023 13:06-0400 Body height 170.18 cm DO [employer] Work Phone: [facility] 12-22-2023 13:06-0400 Body mass index (BMI) [Ratio] 21.2 kg/m2 DO [employer] Work Phone: [facility] 12-22-2023 13:06-0400 Body weight 61.34 kg DO Sahilesh Ball Work Phone: [facility] 12-22-2023 13:06-0400 Diastolic blood pressure 80 mm[Hg] DO Shailesh Ball Work Phone: [facility] 12-22-2023 13:06-0400 Diastolic blood pressure 89 mm[Hg] DO Shailesh Ball Work Phone: [facility] 12-22-2023 13:06-0400 Heart rate 62 /min DO Shailesh Ball Work Phone: [facility] 12-22-2023 13:06-0400 Respiratory rate 12 /min DO Shailesh Ball Work Phone: [facility] 12-22-2023 13:06-0400 Systolic blood pressure 173 mm[Hg] DO Shailesh Ball Work Phone: [facility] 12-22-2023 13:06-0400 Systolic blood pressure 139 mm[Hg] DO Shailesh Ball Work Phone: [facility] 11-23-2023 10:05-0400 Body height 170.18 cm DO Shailesh Ball Work Phone: [facility] 11-23-2023 10:05-0400 Body mass index (BMI) [Ratio] 20.9 kg/m2 DO Shailesh Ball Work Phone: [facility] 11-23-2023 10:05-0400 Body weight 60.78 kg DO Shailesh Ball Work Phone: [facility] 11-23-2023 10:05-0400 Diastolic blood pressure 61 mm[Hg] DO Shailesh Ball Work Phone: [facility] 11-23-2023 10:05-0400 Heart rate 67 /min DO Shailesh Ball Work Phone: [facility] 11-23-2023 10:05-0400 Respiratory rate 12 /min DO Shailesh Ball Work Phone: [facility] 11-23-2023 10:05-0400 Systolic blood pressure 98 mm[Hg] DO Shailesh Ball Work Phone: [facility] 11-15-2023 10:21-0400 Body temperature 96.5 [degF] DO Shailesh Ball Work Phone: [facility] 11-15-2023 10:21-0400 Diastolic blood pressure 60 mm[Hg] DO Shailesh Ball Work Phone: [facility] 11-15-2023 10:21-0400 Heart rate 56 /min DO Shailesh Ball Work Phone: [facility] 11-15-2023 10:21-0400 SaO2% (BldA) [Mass fraction] 97 % DO Shailesh Ball Work Phone: [facility] 11-15-2023 10:21-0400 Systolic blood pressure 138 mm[Hg] DO Shailesh Ball Work Phone: [facility] 10-21-2023 09:08-0400 Body height 170.18 cm DO Shailesh Ball Work Phone: [facility] 10-21-2023 09:08-0400 Body mass index (BMI) [Ratio] 20.9 kg/m2 DO Shailesh Ball Work Phone: [facility] 10-21-2023 09:08-0400 Body weight 60.55 kg DO Shailesh Ball Work Phone: [facility] 10-21-2023 09:08-0400 Diastolic blood pressure 58 mm[Hg] DO Shailesh Ball Work Phone: [facility] 10-21-2023 09:08-0400 Heart rate 65 /min DO Shailesh Ball Work Phone: [facility] 10-21-2023 09:08-0400 Respiratory rate 12 /min DO Shailesh Ball Work Phone: [facility] 10-21-2023 09:08-0400 Systolic blood pressure 102 mm[Hg] DO Shailesh Ball Work Phone: [facility] 09-03-2023 08:49-0400 Body height 170.18 cm DO Shailesh Ball Work Phone: [facility] 09-03-2023 08:49-0400 Body mass index (BMI) [Ratio] 21.9 kg/m2 DO Shailesh Ball Work Phone: [facility] 09-03-2023 08:49-0400 Body weight 63.5 kg DO Shailesh Ball Work Phone: [facility] 09-03-2023 08:49-0400 Diastolic blood pressure 58 mm[Hg] DO Shailesh Ball Work Phone: [facility] 09-03-2023 08:49-0400 Heart rate 63 /min DO Shailesh Ball Work Phone: [facility] 09-03-2023 08:49-0400 Respiratory rate 18 /min DO Shailesh Ball Work Phone: [facility] 09-03-2023 08:49-0400 SaO2% (BldA) [Mass fraction] 97 % DO Shailesh Ball Work Phone: [facility] 09-03-2023 08:49-0400 Systolic blood pressure 110 mm[Hg] DO Shailesh Ball Work Phone: [facility] 08-27-2023 08:33-0400 Body height 170.18 cm DO Shailesh Ball Work Phone: [facility] 08-27-2023 08:33-0400 Body mass index (BMI) [Ratio] 21.7 kg/m2 DO Shailesh Ball Work Phone: [facility] 08-27-2023 08:33-0400 Body weight 62.76 kg DO Shailesh Ball Work Phone: [facility] 08-27-2023 08:33-0400 Diastolic blood pressure 65 mm[Hg] DO Shailesh Ball Work Phone: [facility] 08-27-2023 08:33-0400 Heart rate 64 /min DO Shailesh Ball Work Phone: [facility] 08-27-2023 08:33-0400 Respiratory rate 12 /min DO Shailesh Ball Work Phone: [facility] 08-27-2023 08:33-0400 Systolic blood pressure 132 mm[Hg] DO Shailesh Ball Work Phone: [facility] 08-19-2023 11:18-0400 Body height 170.18 cm DO Shailesh Ball Work Phone: [facility] 08-19-2023 11:18-0400 Body mass index (BMI) [Ratio] 21.9 kg/m2 DO Shailesh Ball Work Phone: [facility] 08-19-2023 11:18-0400 Body weight 63.5 kg DO Shailesh Ball Work Phone: [facility] 08-19-2023 11:18-0400 Diastolic blood pressure 56 mm[Hg] DO Shailesh Ball Work Phone: [facility] 08-19-2023 11:18-0400 Heart rate 60 /min DO Shailesh Ball Work Phone: [facility] 08-19-2023 11:18-0400 Respiratory rate 18 /min DO Shailesh Ball Work Phone: [facility] 08-19-2023 11:18-0400 SaO2% (BldA) [Mass fraction] 98 % DO Shailesh Ball Work Phone: [facility] 08-19-2023 11:18-0400 Systolic blood pressure 102 mm[Hg] DO Shailesh Ball Work Phone: [facility] 07-05-2023 10:23-0400 Body height 170.18 cm DO Shailesh Ball Work Phone: [facility] 07-05-2023 10:23-0400 Body mass index (BMI) [Ratio] 21.4 kg/m2 DO Shailesh Ball Work Phone: [facility] 07-05-2023 10:23-0400 Body temperature 97 [degF] DO Shailesh Ball Work Phone: [facility] 07-05-2023 10:23-0400 Body weight 62.14 kg DO Shailesh Ball Work Phone: [facility] 07-05-2023 10:23-0400 Diastolic blood pressure 48 mm[Hg] DO Shailesh Ball Work Phone: [facility] 07-05-2023 10:23-0400 Heart rate 60 /min DO Shailesh Ball Work Phone: [facility] 07-05-2023 10:23-0400 SaO2% (BldA) [Mass fraction] 97 % DO Shailesh Ball Work Phone: [facility] 07-05-2023 10:23-0400 Systolic blood pressure 96 mm[Hg] DO Shailesh Ball Work Phone: [facility] 06-22-2023 10:01-0400 Body height 170.18 cm DO Shailesh Ball Work Phone: [facility] 06-22-2023 10:01-0400 Body mass index (BMI) [Ratio] 21.5 kg/m2 DO Shailesh Ball Work Phone: [facility] 06-22-2023 10:01-0400 Body weight 62.36 kg DO Shailesh Ball Work Phone: [facility] 06-22-2023 10:01-0400 Diastolic blood pressure 69 mm[Hg] DO Shailesh Ball Work Phone: [facility] 06-22-2023 10:01-0400 Heart rate 64 /min DO Shailesh Ball Work Phone: [facility] 06-22-2023 10:01-0400 Respiratory rate 12 /min DO Shailesh Ball Work Phone: [facility] 06-22-2023 10:01-0400 Systolic blood pressure 95 mm[Hg] DO Shailesh Ball Work Phone: [facility] 05-04-2023 11:14-0500 Blood Pressure Location Ivelisse Lue [facility] 05-04-2023 11:14-0500 Diastolic blood pressure 46 mm[Hg] Ivelisse Lue [facility] 05-04-2023 11:14-0500 Heart rate 63 /min Ivelisse Lue [facility] 05-04-2023 11:14-0500 Systolic blood pressure 116 mm[Hg] Ivelisse Lue [facility] 04-14-2023 10:15-0500 Body height 170.18 cm Shailesh Ball Other [facility] Other 04-14-2023 10:15-0500 Body mass index (BMI) [Ratio] 21.64 kg/m2 Shailesh Ball Other [facility] Other 04-14-2023 10:15-0500 Body weight 62.69 kg Shailesh Ball Other [facility] Other 04-14-2023 10:15-0500 Diastolic blood pressure 58 mm[Hg] Shailesh Ball Other [facility] Other 04-14-2023 10:15-0500 Respiratory rate 12 /min Shailesh Ball Other [employer] [facility] Other 04-14-2023 10:15-0500 Systolic blood pressure 118 mm[Hg] Shailesh Ball Other [employer] Other 03-29-2023 10:00-0500 Body height 170.18 cm Shailesh Ball Other [facility] 03-29-2023 10:00-0500 Body mass index (BMI) [Ratio] 21.8 kg/m2 Shailesh Ball Other [facility] Other 03-29-2023 10:00-0500 Body weight 63.14 kg Shailesh Ball Other [facility] 03-29-2023 10:00-0500 Diastolic blood pressure 74 mm[Hg] Shailesh Ball Other [facility] 03-29-2023 10:00-0500 Respiratory rate 12 /min Shailesh Ball Other [facility] Other 03-29-2023 10:00-0500 Systolic blood pressure 132 mm[Hg] Shailesh Ball Other [facility] 01-13-2023 08:49-0500 Blood Pressure Location Ivelisse Lue [facility] 01-13-2023 08:49-0500 Diastolic blood pressure 74 mm[Hg] Ivelisse Lue [facility] 01-13-2023 08:49-0500 Heart rate 68 /min Ivelisse Lue [facility] 01-13-2023 08:49-0500 Respiratory rate 16 /min Ivelisse Lue [facility] 01-13-2023 08:49-0500 Systolic blood pressure 156 mm[Hg] Ivelisse Lue [facility] 11-10-2022 10:30-0400 Body height 170.18 cm Raul Quan Other [facility] Other 11-10-2022 10:30-0400 Body mass index (BMI) [Ratio] 20.99 kg/m2 Raul Buehrer Other [employer] Other 11-10-2022 10:30-0400 Body temperature 97.8 [degF] Raul Avelina Other [employer] Other 11-10-2022 10:30-0400 Body weight 60.78 kg Raul Melindarer Other [employer] Other 11-10-2022 10:30-0400 Diastolic blood pressure 64 mm[Hg] Raul Quan Other [employer] Other 11-10-2022 10:30-0400 SaO2% (BldA) [Mass fraction] 98 % Raul Avelina Other [employer] Other 11-10-2022 10:30-0400 Systolic blood pressure 110 mm[Hg] Raul Avelina Other [employer] Other 10-07-2022 08:49-0400 Blood Pressure Location Ivelisse Lue [facility] 10-07-2022 08:49-0400 Diastolic blood pressure 74 mm[Hg] Ivelisse Lue [facility] 10-07-2022 08:49-0400 Heart rate 75 /min Ivelisse Lue [facility] 10-07-2022 08:49-0400 Systolic blood pressure 139 mm[Hg] Ivelisse Lue [facility] 08-04-2022 11:15-0400 Body height 170.18 cm Raul Buehrer Other [employer] Other 08-04-2022 11:15-0400 Body mass index (BMI) [Ratio] 21.77 kg/m2 Raul Avelina Other [employer] Other 08-04-2022 11:15-0400 Body temperature 97.8 [degF] Raul Quan Other [employer] Other 08-04-2022 11:15-0400 Body weight 63.05 kg Raul Tommychantellrejakub Other [employer] Other 08-04-2022 11:15-0400 Diastolic blood pressure 68 mm[Hg] Raul Quan Other [employer] Other 08-04-2022 11:15-0400 SaO2% (BldA) [Mass fraction] 97 % Raul Tommychantellmary ann Other [employer] Other 08-04-2022 11:15-0400 Systolic blood pressure 108 mm[Hg] Raul Quan Other [employer] Other 07-09-2022 08:00-0400 Body temperature 98.6 [degF] DO Shailesh Ball Work Phone: [facility] 07-09-2022 08:00-0400 Diastolic blood pressure 72 mm[Hg] DO Shailesh Ball Work Phone: [facility] 07-09-2022 08:00-0400 Heart rate 69 /min DO Shailesh Ball Work Phone: [facility] 07-09-2022 08:00-0400 Respiratory rate 16 /min DO Shailesh Ball Work Phone: [facility] 07-09-2022 08:00-0400 SaO2% (BldA) [Mass fraction] 97 % DO Shailesh Ball Work Phone: [facility] 07-09-2022 08:00-0400 Systolic blood pressure 154 mm[Hg] DO Shailesh Ball Work Phone: [facility] 07-09-2022 06:00-0400 Body weight 65.8 kg DO Shailesh Ball Work Phone: [facility] 07-08-2022 10:52-0400 Inhaled oxygen flow rate 8 L/min DO Shailesh Ball Work Phone: [facility] 07-08-2022 08:34-0400 Body height 167.64 cm DO Shailesh Ball Work Phone: [facility] 07-08-2022 08:34-0400 Body mass index (BMI) [Ratio] 22.7 kg/m2 DO Shailesh Ball Work Phone: [facility] 06-24-2022 09:27-0400 Blood Pressure Location Ivelisse Lue [facility] 06-24-2022 09:27-0400 Diastolic blood pressure 75 mm[Hg] Ivelisse Lue [facility] 06-24-2022 09:27-0400 Heart rate 66 /min Ivelisse Lue [facility] 06-24-2022 09:27-0400 Respiratory rate 16 /min Ivelisse Lue [facility] 06-24-2022 09:27-0400 Systolic blood pressure 120 mm[Hg] Ivelisse Lue [facility] 05-21-2022 09:30-0400 Body height 170.18 cm Shailesh Ball Other [employer] Other 05-21-2022 09:30-0400 Body mass index (BMI) [Ratio] 21.8 kg/m2 Shailesh Ball Other [employer] Other 05-21-2022 09:30-0400 Body weight 63.14 kg Shailesh Ball Other [employer] Other 05-21-2022 09:30-0400 Diastolic blood pressure 73 mm[Hg] Shailesh Ball Other [employer] Other 05-21-2022 09:30-0400 Respiratory rate 12 /min Shailesh Ball Other [employer] Other 05-21-2022 09:30-0400 Systolic blood pressure 121 mm[Hg] Shailesh Ball Other [employer] Other 05-19-2022 11:00-0400 Body height 170.18 cm Tamar Martinezmoy Other [employer] Other 05-19-2022 11:00-0400 Body mass index (BMI) [Ratio] 22.02 kg/m2 Tamar Martinezmoy Other [employer] Other 05-19-2022 11:00-0400 Body temperature 97.5 [degF] Tamar Martinezmoy Other [employer] Other 05-19-2022 11:00-0400 Body weight 63.78 kg Tamar Rutmoy Other [employer] Other 05-19-2022 11:00-0400 Diastolic blood pressure 76 mm[Hg] Tamar Zhuo Other [employer] Other 05-19-2022 11:00-0400 SaO2% (BldA) [Mass fraction] 98 % Tamar Perea Other [employer] [facility] [employer] Other 05-19-2022 11:00-0400 Systolic blood pressure 148 mm[Hg] Tamar Perea Other [employer] Other 04-15-2022 08:57-0500 Blood Pressure Location Ivelisse Lue [facility] 04-15-2022 08:57-0500 Diastolic blood pressure 78 mm[Hg] Ivelisse Lue [facility] 04-15-2022 08:57-0500 Heart rate 68 /min Ivelisse Lue [facility] 04-15-2022 08:57-0500 Respiratory rate 16 /min Ivelisse Lue [facility] 04-15-2022 08:57-0500 Systolic blood pressure 122 mm[Hg] Ivelisse Lue [facility] 03-10-2022 11:30-0500 Body height 170.18 cm Raul Quan Other [employer] [facility] [employer] Other 03-10-2022 11:30-0500 Body mass index (BMI) [Ratio] 21.2 kg/m2 Raul Quan Other [employer] Other 03-10-2022 11:30-0500 Body temperature 97.8 [degF] Raul Quan Other [employer] Other 03-10-2022 11:30-0500 Body weight 61.42 kg Raul Quan Other [employer] Other 03-10-2022 11:30-0500 Diastolic blood pressure 64 mm[Hg] Raul Lawrencerer Other [employer] Other 03-10-2022 11:30-0500 SaO2% (BldA) [Mass fraction] 98 % Raul Quan Other [employer] Other 03-10-2022 11:30-0500 Systolic blood pressure 108 mm[Hg] Raul Lawrencerer Other [facility] Other 02-25-2022 11:09-0500 Blood Pressure Location ADALGISA ARASH [facility] 02-25-2022 11:09-0500 Diastolic blood pressure 63 mm[Hg] ADALGISA ARASH [facility] 02-25-2022 11:09-0500 Heart rate 64 /min ADALGISA ARASH [facility] 02-25-2022 11:09-0500 Systolic blood pressure 105 mm[Hg] ADALGISA ARASH [facility] 02-18-2022 14:12-0500 Blood Pressure Location ADALGISA ARASH [facility] 02-18-2022 14:12-0500 Diastolic blood pressure 83 mm[Hg] ADALGISA ARASH [facility] 02-18-2022 14:12-0500 Heart rate 70 /min ADALGISA ARASH [facility] 02-18-2022 14:12-0500 Systolic blood pressure 142 mm[Hg] ADALGISA ANTOINE [facility] 02-11-2022 08:42-0500 Blood Pressure Location Ivelisse Lue [facility] 02-11-2022 08:42-0500 Diastolic blood pressure 73 mm[Hg] Ivelisse Lue [facility] 02-11-2022 08:42-0500 Heart rate 68 /min Ivelisse Lue [facility] 02-11-2022 08:42-0500 Respiratory rate 16 /min Ivelisse Lue [facility] 02-11-2022 08:42-0500 Systolic blood pressure 150 mm[Hg] Ivelisse Lue [facility] 02-05-2022 08:00-0500 Body temperature 99.1 [degF] DO Shailesh Ball Work Phone: [facility] 02-05-2022 08:00-0500 Diastolic blood pressure 76 mm[Hg] DO Shailesh Ball Work Phone: [facility] 02-05-2022 08:00-0500 Heart rate 78 /min DO Shailesh Ball Work Phone: [facility] 02-05-2022 08:00-0500 Respiratory rate 16 /min DO Shailesh Ball Work Phone: [facility] 02-05-2022 08:00-0500 SaO2% (BldA) [Mass fraction] 95 % DO Shailesh Ball Work Phone: [facility] 02-05-2022 08:00-0500 Systolic blood pressure 168 mm[Hg] DO Shailesh Ball Work Phone: [facility] 02-05-2022 03:21-0500 Body weight 64.1 kg DO Shailesh Ball Work Phone: [facility] 02-04-2022 11:43-0500 Inhaled oxygen flow rate 6 L/min DO Shailesh Ball Work Phone: [facility] 02-04-2022 09:31-0500 Body height 167.64 cm DO Shailesh Ball Work Phone: [facility] 02-04-2022 09:31-0500 Body mass index (BMI) [Ratio] 23.3 kg/m2 DO Shailesh Ball Work Phone: [facility] 01-20-2022 12:30-0500 Body height 170.18 cm Raul Quan Other [employer] Other 01-20-2022 12:30-0500 Body mass index (BMI) [Ratio] 21.92 kg/m2 Raul Quan Other [employer] Other 01-20-2022 12:30-0500 Body temperature 97.7 [degF] Raul Quan Other [employer] Other 01-20-2022 12:30-0500 Body weight 63.5 kg Raul Quan Other [employer] Other 01-20-2022 12:30-0500 Diastolic blood pressure 64 mm[Hg] Raul Quan Other [employer] Other 01-20-2022 12:30-0500 SaO2% (BldA) [Mass fraction] 99 % Raul Buehrer Other [employer] Other 01-20-2022 12:30-0500 Systolic blood pressure 116 mm[Hg] Raul Buehrer Other [employer] Other 01-05-2022 11:15-0400 Body height 170.18 cm Raul Buehrer Other [employer] Other 01-05-2022 11:15-0400 Body mass index (BMI) [Ratio] 21.92 kg/m2 Raul Buehrer Other [employer] Other 01-05-2022 11:15-0400 Body temperature 96 [degF] Raul Buehrer Other [employer] Other 01-05-2022 11:15-0400 Body weight 63.5 kg Raul Buehrer Other [employer] Other 01-05-2022 11:15-0400 Diastolic blood pressure 58 mm[Hg] Raul Buehrer Other [employer] Other 01-05-2022 11:15-0400 SaO2% (BldA) [Mass fraction] 99 % Raul Buehrer Other [employer] Other 01-05-2022 11:15-0400 Systolic blood pressure 100 mm[Hg] Raul Buehrer Other [employer] Other 11-24-2021 12:30-0400 Body height 170.18 cm Tamar Perea Other [employer] Other 11-24-2021 12:30-0400 Body mass index (BMI) [Ratio] 21.92 kg/m2 Tamar Perea Other [employer] Other 11-24-2021 12:30-0400 Body temperature 97.5 [degF] Tamar Perea Other [employer] Other 11-24-2021 12:30-0400 Body weight 63.5 kg Tamar Perea Other [employer] Other 11-24-2021 12:30-0400 Diastolic blood pressure 50 mm[Hg] Tamar Perea Other [employer] Other 11-24-2021 12:30-0400 SaO2% (BldA) [Mass fraction] 98 % Tamar Perea Other [employer] Other 11-24-2021 12:30-0400 Systolic blood pressure 96 mm[Hg] Tamar Perea Other [employer] Other 10-21-2021 07:30-0400 50 1 Shailesh E Ball Work Phone: [address] [place] Work Phone: Comment on above: [id number] 10-15-2021 08:27-0400 Body height 167.64 cm DO Shailesh Ball Work Phone: [facility] 10-15-2021 08:27-0400 Body temperature 97.7 [degF] DO Shailesh Ball Work Phone: [facility] 10-15-2021 08:27-0400 Body weight 66 kg DO Shailesh Ball Work Phone: [facility] 10-15-2021 08:27-0400 Diastolic blood pressure 75 mm[Hg] DO Shailesh Ball Work Phone: [facility] 10-15-2021 08:27-0400 Heart rate 73 /min DO Shailesh Ball Work Phone: [facility] 10-15-2021 08:27-0400 Respiratory rate 16 /min DO Shailesh Ball Work Phone: [facility] 10-15-2021 08:27-0400 SaO2% (BldA) [Mass fraction] 97 % DO Shailesh Ball Work Phone: [facility] 10-15-2021 08:27-0400 Systolic blood pressure 143 mm[Hg] DO Shailesh Ball Work Phone: [facility] 09-30-2021 13:30-0400 Body height 170.18 cm Tamar Martinezmoy Other [employer] [facility] [employer] Other 09-30-2021 13:30-0400 Body mass index (BMI) [Ratio] 24.27 kg/m2 Tamar Martinezmoy Other [employer] Other 09-30-2021 13:30-0400 Body temperature 97.4 [degF] Tamar Martinezmoy Other [employer] Other 09-30-2021 13:30-0400 Body weight 70.31 kg Tamar Martinezmoy Other [employer] Other 09-30-2021 13:30-0400 Diastolic blood pressure 70 mm[Hg] Tamar Brit Other [employer] Other 09-30-2021 13:30-0400 SaO2% (BldA) [Mass fraction] 98 % Tamar Martinezmoy Other [employer] Other 09-30-2021 13:30-0400 Systolic blood pressure 140 mm[Hg] Tamar Perea Other [employer] Other 09-15-2021 11:00-0400 Body height 170.18 cm Tamar Perea Other [employer] Other 09-15-2021 11:00-0400 Body mass index (BMI) [Ratio] 24.27 kg/m2 Tamar Perea Other [employer] Other 09-15-2021 11:00-0400 Body temperature 96.4 [degF] Tamar Perea Other [employer] Other 09-15-2021 11:00-0400 Body weight 70.31 kg Tamar Perea Other [employer] Other 09-15-2021 11:00-0400 Diastolic blood pressure 72 mm[Hg] Tamar Perea Other [employer] Other 09-15-2021 11:00-0400 SaO2% (BldA) [Mass fraction] 98 % Tamar Perea Other [employer] Other 09-15-2021 11:00-0400 Systolic blood pressure 138 mm[Hg] Tamar Perea Other [employer] Other 07-28-2021 10:45-0400 Body height 170.18 cm Raul Quan Other [employer] Other 07-28-2021 10:45-0400 Body mass index (BMI) [Ratio] 24.27 kg/m2 Raul Quan Other [employer] Other 07-28-2021 10:45-0400 Body temperature 96.6 [degF] Raul Quan Other [employer] Other 07-28-2021 10:45-0400 Body weight 70.31 kg Raul Quan Other [employer] Other 07-28-2021 10:45-0400 Diastolic blood pressure 78 mm[Hg] Raul Quan Other [employer] Other 07-28-2021 10:45-0400 SaO2% (BldA) [Mass fraction] 98 % Raul Quan Other [employer] Other 07-28-2021 10:45-0400 Systolic blood pressure 190 mm[Hg] Raul Quan Other [employer] Other Encounters Encounter Date Encounter Type Care Provider Facility Start: 03-21-2024 End: 03-21-2024 ambulatory [facility] Start: 01-19-2024 End: 01-19-2024 ambulatory AMBER BRYANT [facility] Start: 01-18-2024 End: 01-18-2024 ambulatory [facility] Start: 01-11-2024 End: 01-11-2024 ambulatory DO Shailesh Ball Work Phone: [facility] Work Phone: Start: 01-11-2024 End: 01-11-2024 Patient encounter procedure DO Shailesh Ball Work Phone: [facility] Work Phone: Start: 12-22-2023 End: 12-22-2023 ambulatory DO Shailesh Ball Work Phone: [facility] Work Phone: Start: 12-22-2023 End: 12-22-2023 Patient encounter procedure DO Shailesh Ball Work Phone: [facility] Work Phone: Start: 12-17-2023 Non-patient / Non-visit DO Ryder yanna Ball Work Phone: [facility] Work Phone: Start: 11-23-2023 Patient encounter procedure DO Shailesh Ball Work Phone: [facility] Start: 11-23-2023 End: 11-23-2023 ambulatory DO Shailesh Ball Work Phone: [facility] Work Phone: Start: 11-23-2023 End: 11-23-2023 Patient encounter procedure DO Shailesh Ball Work Phone: [facility] Work Phone: Start: 11-15-2023 End: 11-15-2023 ambulatory DO Shailesh Ball Work Phone: [facility] Work Phone: Start: 11-15-2023 End: 11-15-2023 Patient encounter procedure DO Shailesh Ball Work Phone: [facility] Work Phone: Start: 11-09-2023 Non-patient / Non-visit DO Ryder yanna Ball Work Phone: [facility] Work Phone: Start: 10-27-2023 End: 10-27-2023 ambulatory AMBER BRYANT [facility] Start: 10-26-2023 Non-patient / Non-visit DO Ryder yanna Ball Work Phone: [facility] Work Phone: Start: 10-21-2023 End: 10-21-2023 ambulatory DO Shailesh Ball Work Phone: [facility] Work Phone: Start: 10-21-2023 End: 10-21-2023 Patient encounter procedure DO Shailesh Ball Work Phone: [facility] Work Phone: Start: 10-18-2023 Non-patient / Non-visit DO Ryder yanna Ball Work Phone: [facility] Work Phone: Start: 10-17-2023 Non-patient / Non-visit DO Ryder raines Ball Work Phone: [facility] Work Phone: Start: 10-16-2023 End: 10-17-2023 Non-patient / Non-visit DO Shailesh Ball Work Phone: [facility] Work Phone: Start: 10-16-2023 Non-patient / Non-visit DO Ryder raines Ball Work Phone: [facility] Work Phone: Start: 10-15-2023 End: 10-17-2023 Non-patient / Non-visit DO Shailesh Ball Work Phone: [facility] Work Phone: Start: 10-14-2023 End: 10-17-2023 Non-patient / Non-visit DO Shailesh Ball Work Phone: [facility] Work Phone: Start: 10-14-2023 Non-patient / Non-visit DO Ryder raines Ball Work Phone: [facility] Work Phone: Start: 10-12-2023 End: 10-13-2023 Evaluation and management of inpatient AMEBR J [facility] Start: 10-06-2023 End: 10-06-2023 ambulatory AMBER Melgoza [facility] Start: 10-06-2023 End: 10-06-2023 ambulatory AMBER J [facility] Start: 09-17-2023 ambulatory AMBER BRYANT [facility] Start: 09-03-2023 End: 09-03-2023 ambulatory DO Shailesh Ball Work Phone: [facility] Work Phone: Start: 09-03-2023 End: 09-03-2023 Patient encounter procedure DO Shailesh Ball Work Phone: [facility] Work Phone: Start: 08-31-2023 End: 08-31-2023 Patient encounter procedure DO Shailesh Ball Work Phone: [facility] Work Phone: Start: 08-31-2023 End: 08-31-2023 ambulatory DO Shailesh Ball Work Phone: [facility] Work Phone: Start: 08-27-2023 End: 08-27-2023 ambulatory DO Shailesh Ball Work Phone: [facility] Work Phone: Start: 08-27-2023 End: 08-27-2023 Patient encounter procedure DO Shailesh Ball Work Phone: [facility] Work Phone: Start: 08-19-2023 End: 08-19-2023 ambulatory DO Shailesh Ball Work Phone: [facility] Work Phone: Start: 08-19-2023 End: 08-19-2023 Patient encounter procedure DO Shailesh Ball Work Phone: [facility] Work Phone: Start: 08-18-2023 End: 08-18-2023 ambulatory AMBER Melgoza [facility] Start: 08-18-2023 End: 08-18-2023 ambulatory AMBER Melgoza [facility] Start: 08-17-2023 End: 08-17-2023 ambulatory MARIA EUGENIA BERRY [facility] Start: 08-13-2023 End: 08-13-2023 ambulatory MARIA EUGEINA BERRY [facility] Start: 08-04-2023 End: 08-04-2023 ambulatory MARIA EUGENIA BERRY [facility] Start: 07-27-2023 End: 07-27-2023 ambulatory CLIFTON CORREA Not Available Start: 07-05-2023 End: 07-05-2023 ambulatory DO Shailesh Ball Work Phone: [facility] Work Phone: Start: 07-05-2023 End: 07-05-2023 Patient encounter procedure DO Shailesh Ball Work Phone: [facility] Work Phone: Start: 06-22-2023 End: 06-22-2023 ambulatory DO Shailesh Ball Work Phone: [facility] Work Phone: Start: 06-22-2023 End: 06-22-2023 Patient encounter procedure DO Shailesh Ball Work Phone: [facility] [facility] Work Phone: Start: 06-16-2023 End: 06-16-2023 Patient encounter procedure DO Shailesh Ball Work Phone: [facility]-CT Scan Main [place] Work Phone: Start: 06-16-2023 End: 06-16-2023 ambulatory DO Shailesh Ball Work Phone: [facility] Work Phone: Start: 05-04-2023 End: 05-05-2023 ambulatory Ivelisse Hassan Facility:[facility] Start: 05-04-2023 End: 05-04-2023 Lab Drop off Ivelisse Hassan [facility] Start: 05-04-2023 End: 05-04-2023 Patient encounter procedure Ivelisse Hassan [facility] Start: 04-28-2023 End: 04-29-2023 ambulatory Ivelisse Hassan Facility:CD:[id number] Start: 04-26-2023 Non-patient / Non-visit DO Ryder Dunham Work Phone: [facility] Work Phone: Start: 04-20-2023 Non-patient / Non-visit DO Ryder raines Ball Work Phone: [facility] Work Phone: Start: 04-20-2023 Non-patient / Non-visit DO Ryder Dunham Work Phone: [facility] Work Phone: Start: 04-14-2023 End: 04-14-2023 ambulatory Shailesh Dunham Other [employer] Other Start: 04-14-2023 Encounter for other preprocedural examination Shailesh Dunham [facility] Start: 04-14-2023 Office outpatient vi sit 15 minutes Shailesh Enrico [facility] Start: 04-08-2023 End: 04-08-2023 ambulatory Shailesh Dunham Other [employer] Other Start: 04-08-2023 Telephone encounter Shailesh AYON [facility] Start: 04-05-2023 End: 04-05-2023 ambulatory Shailesh Dunham Other [employer] Other Start: 04-05-2023 Telephone encounter Shailesh AYON [facility] Start: 04-04-2023 End: 04-04-2023 ambulatory Raul Quan Other [employer] Other Start: 04-04-2023 Telephone encounter Raul Quan [facility] Start: 03-29-2023 End: 03-29-2023 ambulatory Shailesh Dunham Other [employer] Other Start: 03-29-2023 Transitional care ellen sarkar srvc 14 day discharge Shailesh Dunham [facility] Start: 03-29-2023 End: 03-29-2023 Patient encounter procedure DO Shailesh Dunham Work Phone: [facility]- Start: 03-25-2023 End: 03-25-2023 ambulatory Raul Lawrencemary ann Other [employer] Other Start: 03-25-2023 Telephone encounter Raul Lawrencemary ann [facility] Start: 03-24-2023 End: 03-25-2023 ambulatory Ivelisse Hassan Facility:CD:[id number] Start: 01-13-2023 End: 01-14-2023 ambulatory Ivelisse MSilvestre Hymane Facility:[facility] Start: 01-13-2023 End: 01-13-2023 Patient encounter procedure Ivelisse Hassan [facility] [place] Start: 11-10-2022 Office outpatient vi sit 25 minutes Raul Quan [facility] Start: 11-10-2022 End: 11-10-2022 ambulatory DO Shailesh Dunham Work Phone: [employer] Other Start: 11-10-2022 End: 11-10-2022 Patient encounter procedure DO Shailesh Dunham Work Phone: [facility]-Ultrasound [facility] Start: 10-07-2022 End: 10-08-2022 ambulatory Ivelissenaseem Hymane Facility:[facility] [place] Start: 10-07-2022 End: 10-07-2022 Patient encounter procedure Ivelisse Hassan [facility] [place] Start: 08-04-2022 End: 08-04-2022 ambulatory Raul Quan Other [employer] Other Start: 08-04-2022 Postop follow up vis it related to original px Raul Quan [facility] Start: 07-28-2022 End: 07-29-2022 ambulatory Ivelisse Hassan Facility:[facility] Start: 07-14-2022 ambulatory Ivelisse Hassan Facility:C [id number] Start: 07-09-2022 End: 07-09-2022 ambulatory Shailesh Dunham Other [employer] Other Start: 07-09-2022 Telephone encounter Shailesh Dunham [facility] Start: 07-08-2022 End: 07-08-2022 ambulatory Shailesh Dunham Other [employer] Other Start: 07-08-2022 Telephone encounter Shailesh Dunham [facility] Start: 07-08-2022 End: 07-09-2022 Evaluation and management of inpatient DO Shailesh Dunham Work Phone: [facility] [place] [facility] Work Phone: Start: 07-01-2022 End: 07-01-2022 ambulatory DO Shailesh Dunham Work Phone: [facility] Work Phone: Start: 07-01-2022 End: 07-01-2022 Patient encounter procedure DO Shailesh Dunham Work Phone: [facility] Testing Work Phone: Start: 06-24-2022 End: 06-25-2022 ambulatory Ivelisse Hassan Facility:[facility] Start: 06-24-2022 End: 06-24-2022 Patient encounter procedure Ivelisse Hassan [facility] Start: 05-21-2022 End: 05-21-2022 ambulatory Shailesh Dunham Other [employer] Other Start: 05-21-2022 Patient encounter procedure Shailesh Dunham [facility] Start: 05-19-2022 End: 05-19-2022 ambulatory Tamar Martinezmoy Other [employer] Other Start: 05-19-2022 Follow-up encounter Tamar [facility] Start: 05-13-2022 End: 05-13-2022 ambulatory Raul Quan Other [employer] Other Start: 05-13-2022 Telephone encounter Raul Quan [facility] Start: 05-11-2022 End: 05-11-2022 ambulatory DO Shaielsh Dunham Work Phone: [facility] Work Phone: Start: 05-11-2022 End: 05-11-2022 Patient encounter procedure DO Shailesh Dunham Work Phone: [facility]-CT Scan [facility] [place] Work Phone: Start: 04-23-2022 End: 04-23-2022 ambulatory Raul Quan Other [employer] Other Start: 04-23-2022 Telephone encounter Raul Quan [facility] V[facility] Surgery Start: 04-15-2022 End: 04-15-2022 Lab Drop off Ivelisse Hassan [facility] Start: 04-15-2022 End: 04-15-2022 Patient encounter procedure Ivelisse Hassan [facility] Start: 04-14-2022 End: 04-14-2022 ambulatory Shailesh Dunham Other [employer] Other Start: 04-14-2022 Telephone encounter Shailesh Enrico [facility] Start: 03-10-2022 End: 03-10-2022 ambulatory Raul Quan Other [employer] Other Start: 03-10-2022 Office outpatient vi sit 25 minutes Raul Quan [facility] Surgery Start: 02-25-2022 End: 02-25-2022 Patient encounter procedure ADALGISA ANTOINE [facility] Start: 02-18-2022 End: 02-18-2022 Patient encounter procedure ADALGISA ANTOINE [facility] Start: 02-11-2022 End: 02-11-2022 Lab Drop off Ivelisse Hassan [facility] Start: 02-11-2022 End: 02-11-2022 Patient encounter procedure Ivelisse Hassan [facility] Start: 02-10-2022 End: 02-11-2022 ambulatory IVELISSE HASSAN . Facility: Start: 02-07-2022 Encounter for other preprocedural examination DR RAUL QUAN [facility] Start: 02-07-2022 Encounter for preprocedural laboratory examination DR RAUL QUAN [facility] Start: 02-04-2022 End: 02-05-2022 Evaluation and management of inpatient DO Shailesh Dunham Work Phone: [facility] Start: 02-02-2022 End: 02-03-[address] RAUL QUAN Facility:[facility] Start: 02-02-2022 End: 02-03-2022 Encounter for other preprocedural examination DR RAUL QUAN Facility:[facility] Start: 01-20-2022 Office outpatient vi sit 25 minutes Raul Quan [facility] Surgery Start: 01-20-2022 End: 01-20-2022 ambulatory DO Shailesh Dunham Work Phone: [employer] Other Start: 01-20-2022 End: 01-20-2022 Patient encounter procedure DO Shailesh Dunham Work Phone: [facility]-Ultrasound [facility] Start: 01-05-2022 End: 01-05-2022 ambulatory Raul Quan Other [employer] Other Start: 01-05-2022 Office outpatient vi sit 25 minutes Raul Quan [facility] Surgery Start: 12-08-2021 End: 12-09-[address] SHAILESH DUNHAM Facility:[facility] Start: 12-02-2021 End: 12-02-[address] SHAILESH DUNHAM Facility:[facility] Start: 11-24-2021 End: 11-24-2021 ambulatory Tamar Perea Other [employer] Other Start: 11-24-2021 Patient encounter procedure Tamar Perea [facility] Surgery Start: 11-11-2021 End: 11-11-[address] SHAILESH DUNHAM Facility:[facility] Start: 10-26-2021 End: 10-26-[address] SHAILESH DUNHAM Facility:[facility] Start: 10-21-2021 Patient encounter procedure Shailesh Dunham Work Phone: [facility] [address] [place] Work Phone: Start: 10-16-2021 Telephone encounter Judah Vivas MD Work Phone: -[facility] [address] DO Work Phone: Start: 10-15-2021 End: 10-15-2021 Evaluation and management of inpatient DO Shailesh Dunham Work Phone: [facility]-4 [facility] Start: 10-13-2021 End: 10-13-2021 Patient encounter procedure DO Shailesh Dunham Work Phone: [facility]-Pre-Surgical Testing Start: 10-06-2021 End: 10-06-2021 Patient encounter procedure DO Shailesh Dunham Work Phone: [facility]-Pre-Surgical Testing Start: 09-30-2021 End: 09-30-2021 ambulatory Tamar Perea Other [employer] Other Start: 09-30-2021 Encounter for other preprocedural examination Tamar Perea [facility] Start: 09-30-2021 Follow-up encounter Tamar [facility] Start: 09-22-2021 End: 09-23-[address] SHAILESH DUNHAM Facility:[facility] Start: 09-18-2021 End: 09-18-2021 Patient encounter procedure DO Shailesh Dunham Work Phone: [facility]-CT Scan Main [place] Start: 09-15-2021 End: 09-15-2021 ambulatory Tamar Perea Other [employer] Other Start: 09-15-2021 Follow-up encounter Tamar [facility] Start: 08-27-2021 End: 08-27-2021 Patient encounter procedure DO Shailesh Dunham Work Phone: [facility]-Ultrasound [facility] Start: 08-12-2021 End: 08-13-[address] KURTZ LISTED REQUEST Facility:[facility]1 Start: 07-28-2021 End: 07-28-2021 ambulatory Raul Quan Other [employer] Other Start: 07-28-2021 Office outpatient ne w 45 minutes Rual [facility] Start: 06-13-2020 End: 06-13-2020 Patient encounter procedure Lisandra Sher Work Phone: [facility] Work Phone: Patient encounter status Judah Harrington MD Work Phone: [facility] [address] DO Work Phone: Procedures Date Procedure Procedure Detail Performing Clinician Start: 01-19-2024 Follow-up visit Follow-up AMBER BRYANT Start: 01-11-2024 US scan of aorta DO Shailesh [employer] Work Phone: Start: 12-17-2023 E coli Shiga Toxin EIA DO [employer] Phone: Start: 12-17-2023 Salmonella/Shigella Screen DO [employer] Work Phone: Start: 11-15-2023 Doppler ultrasonography of bilateral carotid arteries DO [employer] Work Phone: Start: 06-16-2023 Computed tomography of abdomen and pelvis with contrast DO [employer] Phone: Start: 05-04-2023 Cystoscopic removal of ureteric stent Ivelisse Hymane Start: 04-28-2023 Cystoscopic insertion of ureteric stent Ivelisse Lue Start: 11-10-2022 Doppler ultrasonography of bilateral carotid arteries DO [employer] Work Phone: Start: 07-28-2022 Cystourethroscopy with dilation of urethral stricture Ivelisse Lue Start: 07-08-2022 Insertion of carotid artery stent DO Ryder raines [employer] Work Phone: Start: 05-11-2022 Computed tomography angiography of abdominal and/or pelvic blood vessel DO Shailesh [employer] Work Phone: Start: 05-11-2022 CT angiography of head DO Shailesh [employer] Work Phone: Start: 05-11-2022 CT angiography of neck vessels DO [employer] Phone: Start: 02-10-2022 PSA screening IVELISSE HASSAN . Comment on above: Performed By: #### DATA1C #### [facility] [address] [address] [address] 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 Ivelisse Hassan Start: 02-04-2022 Endovascular repair of abdominal aortic aneurysm DO [employer] Phone: Start: 01-20-2022 Doppler ultrasonography of bilateral carotid arteries DO [employer] Phone: Start: 09-18-2021 Computed tomography angiography of abdominal and/or pelvic blood vessel DO [employer] Phone: Start: 08-27-2021 US scan of aorta DO [employer] Phone: Start: 08-27-2021 Doppler ultrasonography of bilateral carotid arteries DO [employer] Phone: Start: 06-13-2020 Imm. administration COVID19 [employer] Work Phone: Start: 06-13-2020 SARS-CoV-2 vaccine, 0.5ml [employer] Work Phone: Start: 10-18-2019 Transurethral prostatectomy Ivelisse Lue Start: 04-06-2019 Cystoscope, device (physical object) Ivelisse Lue Start: 10-06-2016 Colonoscopy Ivelisse Lue Comment on above: 2010 Arthroscopy of knee Ivelisse Yenni e Catheterization of left heart Ivelisse Lue Esophagogastroduodenoscopy K athy Lue Plan of Treatment Date Care Activity Detail Author Start: 09-01-2023 ambulatory Ambulatory Facility:[facility] Start: 08-19-2023 [facility] Start: 07-09-2022 [facility] Start: 07-08-2022 Hospital admission [facility] Start: 07-08-2022 Patient referral to dietitian [facility] Start: 02-05-2022 [facility] Start: 02-04-2022 [facility] Start: 02-04-2022 Hospital admission [facility] Start: 10-21-2021 STRESS NUC, Provider: SAL HHVI NUCLEAR 01,[id number], Status: Pen, Time: 7:30 AM STRESS NUC, Provider: SAL HHVI NUCLEAR 01,[id number], Status: Pen, Time: 7:30 AM -[facility] [address] DO Work Phone: Start: 10-15-2021 [facility] Work Phone: Start: 10-15-2021 OR Percutaneous EVAR AAA (Not Applicable) OR Percutaneous EVAR AAA (Not Applicable) [facility] Start: 10-15-2021 End: 10-15-2021 Evaluation and management of inpatient AAA (abdominal aortic aneurysm) [facility]-[address] [place] [address] Surgical Start: 10-13-2021 End: 10-13-2021 Patient encounter procedure Departed Clinical [facility] Qxk-Kxo-Wfmsxzvr Testing Comprehensive metabo lic 2000 panel - Serum or Plasma [facility] Holter monitor study [facility] Patient Education [facility] Work Phone: Patient referral [facility] Work Phone: US Gallbladder [facility] Heart limited [facility] Heart Transthoracic [facility] Heart Transthoracic [facility] Thoracic and abdo sebastian aorta [facility] Thoracic and abdo sebastian aorta [facility] Thoracic and abdo sebastian aorta [facility] US.doppler Carotid arteries - bilateral [facility] US.doppler Carotid arteries - bilateral [facility] US.doppler Carotid arteries - [facility] Immunizations Immunization Date Immunization Notes Care Provider David holloway 06-13-2020 Rodney [employer] Rodney COVID 19 Vaccine [facility] Comment on above: Note: Patient tolera shyann well. No signs or symptoms of adverse reactions. Patient waited a minimum of 15 minutes. NEGATED: Highlighted row has not occurred!01-13-2023 influenza virus vaccine, unspecified formulation Ivelisse Hassan [facility] Payers Date Payer Category Payer Self-pay [id number] 2020 Unknown [id number] 1959 Self-pay [id number] 1959 Unknown [id number] [id number] 1959 Unknown [id number] 1959 Unknown [id number] 1942 Unknown [id number] 2.16.84 0.1.719738.3.579.2.593 1942 Unknown [id number] 2.16.84 0.1.674895.3.579.2.593 1942 Unknown [id number] 2.16.84 0.1.849082.3.579.2.593 1942 Unknown [id number] 2.16.84 0.1.377576.3.579.2.593 1942 Unknown [id number] 2.16.84 0.1.501326.3.579.2.593 1942 Unknown [id number] 2.16.84 0.1.212534.3.579.2.593 1942 Unknown [id number] 2.16.84 0.1.989822.3.579.2.593 1942 Unknown [id number] 2.16.8 40.1.364032.3.579.2.727 1942 Unknown [id number] 2.16.8 40.1.082817.3.579.2.727 1942 Unknown [id number] 2.16.8 40.1.278095.3.579.2.727 1942 Unknown [id number] 2.16.8 40.1.571459.3.579.2.72 1942 Unknown [id number] 2.16.8 40.1.895244.3.579.2.727 1942 Unknown [id number] 2.16.8 40.1.036572.3.579.2.727 1942 Unknown [id number] 2.16.8 40.1.363340.3.579.2.72 1942 Unknown [id number] 2.16.8 40.1.937646.3.579.2.72 1942 Unknown [id number] 2.16.8 40.1.677548.3.579.2.72 1942 Unknown [id number] 2.16.84 0.1.260959.3.579.2.1259 Unknown Unknown [facility] [id number] Unknown [id number] 2.16.84 0.1.350498.3.579.2.593 Unknown [id number] 2.16.8 40.1.997889.3.579.2.531 Unknown [id number] 2.16.8 40.1.956028.3.579.2.531 Unknown [id number] 2.16.8 40.1.275024.3.579.2.531 Unknown [id number] 2.16.8 40.1.017921.3.579.2.531 Unknown [id number] 2.16.8 40.1.055985.3.579.2.531 Social History Date Type Detail Facility Tobacco smoking status Unknown i f ever smoked [facility] Work Phone: Start: 03-08-1955 End: 03-08-1996 Sex Assigned At [facility] Start: 10-15-2021 End: 08-19-2023 Tobacco smoking status NHIS Ex-smoker (finding) [facility] Start: 1940 Sex Assigned At Male F [facility] Tobacco smoking status Never [facility] Medical Equipment Procedure Code Equipment Code Equipment Origin al Text Equipment Identifier Dates Transcarotid artery revascularization (TCAR) Bare-metal carotid artery stent ()[id number] FDA Start: 07-08-2022 Transcarotid artery revascularization (TCAR) Bare-metal carotid artery stent ()[id number] FDA Start: 07-08-2022 Percutaneous endovascular repair of abdominal aortic aneurysm (AAA) Abdominal aorta endovascular stent-graft ()[id number] FDA Start: 02-04-2022 Percutaneous endovascular repair of abdominal aortic aneurysm (AAA) Abdominal aorta endovascular stent-graft ()[id number] FDA Start: 02-04-2022 Percutaneous endovascular repair of abdominal aortic aneurysm (AAA) Abdominal aorta endovascular stent-graft ()[id number] FDA Start: 02-04-2022 Goals Date Patient Goal Desired Activity /State Functional Status Date Assessment Result Facility 05-04-2023 Functional Status N/A [facility] 01-13-2023 Functional Status N/A [facility] 10-07-2022 Functional Status N/A [facility] 07-09-2022 Functional status Patient is Pro gressing Toward Baseline [facility] Work Phone: 06-24-2022 Functional Status N/A [facility] 04-15-2022 Functional Status N/A [facility] 02-25-2022 Functional Status N/A [facility] 02-18-2022 Functional Status N/A [facility] 02-11-2022 Functional Status N/A [facility] 02-05-2022 Functional status Patient at Baseline [facility] Work Phone: 10-15-2021 Functional status Patient at Baseline [facility] Work Phone: Mental Status Date Assessment Result Facility 07-09-2022 Cognitive function Cognitive Sta tus Patient is Progressing Toward Baseline [facility] Work Phone: 02-05-2022 Cognitive function Cognitive Sta tus Patient at Baseline [facility] Work Phone: 10-15-2021 Cognitive function Cognitive Sta tus Patient at Baseline [facility] Work Phone: Clinical Notes 04-18-2020 to 03-21-2024 Note Date & Type Note Facility 03-21-2024 Note [place] Electrophysiology Consult Note [facility] - [facility] Reason for visit: Afib 03/21/24 Patient here for follow up stress test and 30 day event monitor. He denies chest pain, SOB, palpitations, lightheadedness/syncope, and bleeding on Eliquis. Pt had MPI which revealed fixed defect in apical area and EF 51%. 30d event monitor reveals multiple episodes of NSVT of 3-5 beats. He has no syncope. Prior HPI: Chico Baker is a 83 y.o. year old with past medical history of aortic aneurysm s/p EVAR, carotid artery disease s/p carotid stents [facility], underwent a robotic assisted cholecystectomy with partial liver resection on 10/12/2023 @[facility]. Subsequently the patient was noted to have postoperative atrial fibrillation and was admitted to the [facility] and spontaneously converted to sinus rhythm. He was started on Eliquis 2.5 mg twice daily and since then placed on Holter monitor. [facility], but hasn't been seen since 2021. [...] Determinants of Health Tobacco Use: Medium Risk (01/19/2024) Patient History Smoking Tobacco Use: Former Smokeless [...] Not on file Intimate Partner Violence: Unknown (01/19/2024) Humiliation, Afraid, Rape, and Kick questionnaire Fear of Current or Ex-Partner: No Emotionally Abused: Not on file Physically Abused: Not on file Sexually Abused: Not on file Depression: Not at risk (01/19/2024) PHQ-2 PHQ-2 Score: 0 Housing Stability: Low Risk (10/12/2023) Housing Stability Vital Sign Unable to Pay for Housing in the Last Year: Not on file Number of Places Lived in the Last Year: Not on file Unstable Housing in the Last Year: No Utilities: Not At Risk (10/12/2023) [facility] Utilities Threatened with loss of utilities: No Health Literacy: Not on file Allergies: Allergies Allergen Reactions Shalini Inhibitors Hives and Unknown Other Reaction(s): Unknown Gadolinium-Containing Contrast Media Itching and Unknown Iodinated Contrast Media Hives Other Reaction(s): hives Iodine Unknown Tetanus And Diphtheria Toxoids Unknown Tetanus Immune Globulin Other Tetanus Vaccines And Toxoid Unknown and Other Weight: 61.7kg Visit Vitals BP 155/70 (BP Location: Right arm, Patient Position: Sitting) Pulse 64 Ht 1.676 m (5' 6 ) Wt 61.7 kg (136 lb) SpO2 99% BMI 21.95 kg/m??? Smoking Status Former BSA 1.69 m??? Meds: Current Outpatient Medications on File [...] ER (Imdur) 30 mg 24 hr tablet Mg (more content not included)... [facility] 01-19-2024 Note SURGERY FOLLOWUP NOT E Ambre Bryant MD, MHPE, FACS, FSSO Hepatobiliary, pancreatic, [...] postop with atrial fibrillation rapid response to [facility]. He spontaneously converted and anticoagulation was begun. [...] as needed I spent 20 minutes in [id number] evaluation, discussion, and counseling with the patient regarding the treatment plan and recommendations. Amber Bryant MD [facility] 01-18-2024 Note NH Electrophysiology Consult Note [facility] Cardiology - [facility] Reason for visit: Afib HPI: Chico Baker is a 83 y.o. year old with past medical history of aortic aneurysm s/p EVAR, carotid artery disease s/p carotid stents @[facility], underwent a robotic assisted cholecystectomy with partial liver resection on 10/12/2023 @[facility]. Subsequently the patient was noted to have postoperative atrial fibrillation and was admitted to the [facility] and spontaneously converted to sinus rhythm. He was started on Eliquis 2.5 mg twice daily and since then placed on Holter monitor. He used to see [facility] cardiology, but hasn't been seen since 2021. [...] Year: No Utilities: Not At Risk (10/12/2023) [facility] Utilities Threatened with loss of utilities: No [...] visit. ROS: Re (more content not included)... [facility] 10-27-2023 Note SURGERY POST-OPERATI VE NOTE [...] postop with atrial fibrillation rapid response to [facility]. He spontaneously converted and anticoagulation was begun. [...] hepatic panel. I spent 20 minutes in wovz-wm-btoh evaluation, discussion, and counseling with the patient regarding the treatment plan and recommendations. Amber Bryant MD [facility] 10-13-2023 Note 10/13/23 1028 Admission Assessment [...] No Pharmacy Bedside Delivery Status Not Interested ([facility] in [place]) Does the patient have a block and case maker assigned to them through their insurance? No [...] to return home no needs at discharge. [facility] 10-13-2023 Note HPB Surgery Attendin g [...] in approximately 2 weeks Amber Bryant MD [facility] 10-12-2023 Note Patient: Chico hidalgo Procedure Summary Date: 10/12/23 Room / Location: [facility] OPERATING ROOM 13 / [facility] Operating Room Anesthesia Start: 948 Anesthesia [...] per anesthesia protocol. No notable events documented. [facility] 10-12-2023 Note Patient: Chico hidalgo Procedure Summary Date: 10/12/23 Room / Location: [facility] OPERATING ROOM 13 / [facility] Operating Room Anesthesia Start: 948 Anesthesia [...] and follow verbal commands throughout transport process [facility] 10-12-2023 Note Arterial Line: Date/Time: 10/12/2023 [...] procedure well with no complications. Staffing Performed: resident/OPTOMETRIST PRESIDENT/PRACTICE OWNER/CAA and anesthesiologist Anesthesiologist: Kathi Lyons MD Resident/OPTOMETRIST PRESIDENT/PRACTICE OWNER: Marcial Alvarado MD Performed by: Marcial Alvarado MD Authorized by: Kathi Lyons MD [facility] 10-12-2023 Note Airway Date/Time: 10/12/2023 10:03 AM Urgency: elective Airway not difficult General Information and Staff Patient location during procedure: OR Resident/OPTOMETRIST PRESIDENT/PRACTICE OWNER/CAA: Marcial Alvarado MD Performed: resident/OPTOMETRIST PRESIDENT/PRACTICE OWNER/CAA Learner assisted: Michell Castillo MS4 Indications and [...] 21 Number of attempts at approach: 1 [facility] 10-06-2023 Note SURGERY FOLLOWUP NOT E [...] ???F), temperature so (more content not included)... 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 Additional Equipment Requests [facility] 08-18-2023 Note HEPATOBILIARY & PANC REAS [...] Smokeless tobacco: Never (more content not included)... [facility] 08-13-2023 Note The patient is a [...] fall with right femoral ORIF while playing ping-pong Abdominal aortic stent Left carotid artery stent [...] of a gallbladder malignancy. Will send to [place] to see if the actual film from [...] bed and lymph node evaluation as well. [facility] 05-04-2023 Hospital Discharge instructions Patient Education [...] include: ?8 oz (237 mL) of milk, ikwtzer-goytqxprnhiq-xkkkq milk, and calcium-fortifiedfruit juice. Calcium-fortified means that [...] ?Spinach (cooked), rhubarb, beets, sweet potatoes, and Luxembourger chard. ?Peanuts. ?Potato chips, palauan fries, and baked potatoes with skin on. ?Nuts and nut products. ?Chocolate. If you regularly take a diuretic medicine, make sure to eat at least 1 or 2 servings of fruits or vegetables that are high in potassium each day. These include: ?Avocado. ?Banana. ?[place], prune, carrot, or tomato juice. ?Baked potato. [...] magnesium, fish oil, or vitamin B6. Take ahid-evi-imlwhrn and prescription medicines only as told by [...] Casseroles. Pizza. Lasagna. Frozen meals. Potato chips. Occitan fries. The items listed above may not [...] provider. Document Revised: 06/04/2022 Document Reviewed: 06/04/2022 [employer] Patient Education 2022 [employer]. Follow Up Care 04/29/2023 08:42:17 With:Mo LEIJA, Ivelisse Schreiber, AKILAH, URO Address: When:Within 4 Month(s) Comments:monica/KEDAR [facility] 04-14-2023 Evaluation note Encounter Date Diagnosis Assessment [...] this time and surgery could be scheduled. [facility] Other 02-07-2024 Evaluation note* Encounter Date Diagnosis [...] control to proceed with his next procedure. [facility] Other 02-01-2024 Evaluation note* Encounter Date Diagnosis Assessment Notes Treatment Notes Treatment Clinical Notes Apr, Primary hypertension (ICD-10 - I10) [facility] Other 01-29-2024 Evaluation note* Encounter Date Diagnosis Assessment Notes Treatment Notes Treatment Clinical Notes Mar, Primary hypertension (ICD-10 - I10) [facility] Other 01-28-2024 Evaluation note* Encounter Date Diagnosis Assessment Notes Treatment Notes Treatment Clinical Notes Mar, Primary hypertension (ICD-10 - I10) [facility] Other 01-22-2024 Evaluation note* Encounter Date Diagnosis [...] has resolved INstructed on increasing fluids [employer] Other [id number] Hospital Discharge instructions Patient Education 01/13/2023 09:52:36 [...] urethra. Follow these instructions at home: Take sxdo-iyn-zonwcpo and prescription medicines only as told by [...] provider. Document Revised: 09/10/2021 Document Reviewed: 09/10/2021 [employer] Patient Education 2022 [employer]. Follow Up Care 10/07/2022 09:26:45 With:Mo LEIJA, AKILAH Smith, URO Address: When: Unknown [facility] 09-05-2023 Evaluation note* Encounter Date [...] in the office with a CT scan. [facility] Other 08-02-2023 Hospital Discharge instructions Patient Education [...] urethra. Follow these instructions at home: Take xjgx-pgj-txrabbz and prescription medicines only as told by [...] provider. Document Revised: 09/10/2021 Document Reviewed: 09/10/2021 [employer] Patient Education 2022 [employer]. Follow Up Care 07/28/2022 10:29:31 With:Mo LEIJA, AKILAH Smith, URO Address: When:Within 3 Day(s) [facility] 05-30-2023 Evaluation note* Encounter Date [...] a couple of weeks. These have resolved. [facility] Other 05-04-2023 Discharge summary Author Raul Quan [facility] July 09, 2022 12:08pm Note Date/Time July 09, 2022 8:07am [facility] [address] [place] [address] Discharge Summary Signed Patient: Chico Baker MR#: [id number] : 1940 Acct:[id number] Age/Sex: 82 / M Adm Date: 3 Loc: Room: [address] [place] [address]: Raul Quan MD Copies to: [...] midline, neck is supple, no JVD. 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 He has a little [...] <Electronically signed by MD Raul Quan> 07/09/22 [address] [facility] Work Phone: 1(524) 717-222805-03-2023 History and physical note Author Raul Quan [facility] July 08, 2022 11:06am Note Date/Time July 08, 2022 11:06a m [facility] [address] [place] [address] Vascular Surgery H&P Signed Patient: Chico Baker MR#: [id number] : 1940 Acct:[id number] Age/Sex: 82 / M Adm Date: 3 Loc: Room: [address] [place] [address] Type: ADM IN Attending Dr: Raul Quan [...] by MD Raul Quan> 07/08/22 [address] [facility] Work Phone: 1(996) 682-121804-19-2023 Hospital Discharge instructions Patient Education 06/24/2022 09:42:41 [...] Follow these instructions at home: Medicines Take qplz-lrf-miueovy and prescription medicines only as told by [...] or the blood stops without treatment. Take ttaj-ueg-izhqhdp and prescription medicines only as told by your health care provider. Drink enough fluid to keep your urine pale yellow. This information is not intended to replace advice given to you by your health care provider. Make sure you discuss any questions you have with your health care provider. Document Revised: 10/23/2020 Document Reviewed: 10/23/2020 [employer] Patient Education 2022 [employer]. Follow Up Care 04/15/2022 10:15:03 With:Mo LEIJA, AKILAH Smith, URO Address: [address] [place] [address] [phone] When: Unknown 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 Walk daily Inspect feet daily for cuts [facility] Other 03-14-2023 Evaluation note* Encounter Date Diagnosis [...] left TCAR procedure once he returns from [place] at the end of June beginning of [...] agree with plan, and denies any questions. [facility] Other 03-08-2023 Evaluation note* Encounter Date Diagnosis Assessment Notes Treatment Notes Treatment Clinical Notes May, Carotid stenosis, bilateral (ICD-10 - I65.23) CTA: < 50% right, 80% left [facility] Other 03-08-2023 Evaluation note* Encounter Date Diagnosis Assessment Notes Treatment Notes Treatment Clinical Notes May, Carotid stenosis, bilateral (ICD-10 - I65.23) CTA: < 50% right, 70% left - 05/2022 [facility] Other 02-08-2023 Hospital Discharge instructions Patient Education [...] prostate. Follow these instructions at home: Take fudo-nzw-opvoayz and prescription medicines only as told by [...] 02/19/2001 Document Revised: 05/07/2018 Document Reviewed: 11/12/2016 Comfy Patient Education 2020 [employer]. Follow Up Care 02/11/2022 10:55:52 With:Mo LEIJA, AKILAH Smith, URO Address: When: Unknown [facility] [place] 02-07-2023 Evaluation note* Encounter Date Diagnosis Assessment Notes Treatment Notes Treatment Clinical Notes Apr, Primary hypertension (ICD-10 - I10) [facility] Other 01-03-2023 Evaluation note* Encounter Date Diagnosis [...] to perform simultaneously to minimize contrast exposure. [facility] Other 12-21-2022 Hospital Discharge instructions Patient Education 02/25/2022 12:02:33 Rash, Adult, Adzl-ne-Lqqu Rash, Adult A rash is a change [...] with your condition: Medicine Take or apply rzmt-lpy-zonzmqd and prescription medicines only as told by [...] the rash from spreading. Take or apply pmzv-nkr-whqbsmg and prescription medicines only as told by [...] 08/10/2008 Document Revised: 06/16/2019 Document Reviewed: 09/26/2018 [employer] Patient Education 2020 [employer]. Follow Up Care 02/18/2022 14:33:21 With:Ivelisse Hassan Address:Unknown When: Unknown Comments:Appointment has already been scheduled [facility] 12-14-2022 Hospital Discharge instructions Patient [...] including vitamins, herbs, eye drops, creams, and fwqp-cha-ntqksuq medicines. Any problems you or family members [...] provider tells you to take them. Taking wzru-njz-natuwot medicines, vitamins, herbs, and supplements. Eating and [...] 02/22/2006 Document Revised: 06/14/2019 Document Reviewed: 11/23/2018 Com[employer] Patient Education 2019 [employer]. Follow Up Care 02/17/2022 16:33:06 With:ARASH BUCHANAN, ADALGISA Ellis, URL Address: [address] [place] [address] [phone] When:02/25/2022 [facility] 12-07-2022 Hospital Discharge instructions Patient [...] prostate. Follow these instructions at home: Take xcxm-jev-xiyntoe and prescription medicines only as told by [...] 02/19/2001 Document Revised: 05/07/2018 Document Reviewed: 11/12/2016 Comfy Patient Education 2020 [employer]. Follow Up Care 01/28/2021 10:15:04 With:Mo LEIJA, AKILAH Smith, URO Address: When:6 weeks [facility] 12-01-2022 Discharge summary Author Raul Quan [facility] February 05, 2022 10:08am Note Date/Time February 05, 2022 7 :52am [facility] [address] [place] [address] Discharge Summary Signed Patient: Chico Baker MR#: [id number] : 1940 Acct:[id number] Age/Sex: 81 / M Adm Date: 2 Loc: 4N Room: 6Z1867-[address]: Raul Quan MD Copies to: Shailesh Dunham,DO Tamar Perea, CLOTH STRETCHER Raul Quan MD~ Providers Date of Discharge: [...] % (Auto) 69.5, Lymph % (Auto) 14.4, [place] % (Auto) 14.8, Eos % (Auto) 0.7, Baso % (Auto) 0.6, Nucleat RBC Rel Count 0.1, Neut # (Auto) 7.1, Lymph # (Auto) 1.5, [place] # (Auto) 1.5 H, Eos # (Auto) 0.1, Baso # (Auto) 0.1 02/04/22 08:25: Corrected WBC 9.3, Uncorrected WBC Count 9.3, RBC 4.10, Hgb 12.4L, Hct 37.5 L, MCV 91.5, MCH 30.2, MCHC 33.0, RDW 13.7, Plt Count 198, MPV 8.5, Neut % (Auto) 70.1, Lymph % (Auto) 16.4, [place] % (Auto) 12.0, Eos % (Auto) 0.9, Baso % (Auto) 0.6, Nucleat RBC Rel Count 0.0, Neut # (Auto) 6.5, Lymph # (Auto) 1.5, [place] # (Auto) 1.1 H, Eos # (Auto) [...] signed by MD Raul Quan> 02/05/22 100[address] [facility] Work Phone: 1(780) 456-361211-15-2022 Evaluation note* Encounter Date Diagnosis Assessment Notes [...] we will evaluate him for left TCAR. [facility] Other 10-31-2022 Evaluation note* Encounter Date Diagnosis [...] complete and CT confirms candidacy for TCAR [facility] Other 09-19-2022 Evaluation note* Encounter Date Diagnosis Assessment Notes Treatment Notes Treatment Clinical Notes Nov, AAA (abdominal aortic aneurysm) without rupture (ICD-10 - I71.4) This patient is still recovering from his recent orthopedic procedures. He continues with physical therapy and although he is getting stronger, he remains quite fatigued and weak yet. He has an upcoming appointment with his life skills specialist for preoperative risk assessment and stratification this next week. We will give him a few more weeks of physical therapy and have him back in a month or so to reschedule his AAA. He did tell me that he had some abdominal [facility] and was taken to the [facility] where a CT of the abdomen was obtained. We will get these studies pushed over for review and comparison. He denies any abdominal pain today and tells me his appetite is pretty good. He knows to call us in the meantime with any issues. [facility] Other 07-26-2022 Evaluation note* Encounter Date Diagnosis [...] agrees with this plan, denies any questions. [facility] Other 07-11-2022 Evaluation note* Encounter Date Diagnosis [...] agrees with this plan, and denies questions. [facility] Other 07-11-2022 Evaluation note* Encounter Date Diagnosis [...] agrees with this plan, and denies questions. [employer] Other 05-23-2022 Evaluation note* Encounter Date Diagnosis [...] returns we will get baseline ankle-brachial indices. [facility] Other 10-06-2021 NoteHNO ID: [id number] Author: Power Catherine MD Service: ? Author Type: Physician Type: Progress Notes Filed: 12/11/2020 11:17 AM Note Text: [facility] OUTPATIENT VISIT DATE December 11, 2020 OUTPATIENT VISIT TYPE EST PRIMARY CARE PHYSICIAN: Shailesh Dunham (Jere) [address] [place] [address] REFERRING PHYSICIAN Power Catherine [address] [facility] [id number] CHIEF COMPLAINT: Patient presents with: Established Patient [...] up. Continue statin therapy. ? Power Catherine, [facility]02-11-2021 NotePatient Outreach (COVAMN) SAMUELCHICO Abad ([id number]) 1940 M Date Time Provider Department 04/18/20 KIMBERLEY REHMAN During your visit today, we recorded the following information about you: Allergies As of Date: 04/18/2020 Noted Allergy Reaction SHALINI INHIBITORS 05/09/2015 16 - Unknown GADOLINIUM-CONTAINING CONTRAST ME*05/09/2015 16 - Unknown TETANUS VACCINES AND TOXOID 05/16/2015 16 - Unknown Date Reviewed: 10/18/2017 Reviewed by: Power Catherine - Fully Assessed Order(s):SARS-COVID VACCINE 1ST DOSE APPT [[id number]] Order #: [id number] FUTURE Prescriptions as of 04/18/2020 Sig: ASPIRIN 81 MG TABLET,DELAYED * Take 81 mg by mouth once justice* ISOSORBIDE MONONITRATE ER 30 * Take 30 mg by mouth once justice* CARVEDILOL 12.5 MG TABLET Take 12.5 mg by mouth twice d* DOXAZOSIN 4 MG TABLET Take 4 mg by mouth daily at b* Problem List As Of Date: 04/18/2020 (None) Encounter Status:Closed by [employer] PRODUSER on 04/22/20[facility] Evaluation + Plan note Future Appointments Appointment Date:04/15/2022 08:45:00 AM Scheduled Provider:Ivelisse Hassan MD Location:[facility] Appointment Type:URO Office Visit [facility] evaluation + Plan note Future Appointments Appointment Date:04/15/2022 08:45:00 AM Scheduled Provider:Ivelisse Hassan MD Location:[facility] Appointment Type:URO Office Visit Diagnostic Tests Pending * [facility] Appointment Date:02/25/2022 11:00:00 AM Scheduled Provider:ADALGISA ANTOINE PA-C Location:[facility] Appointment Type:URO Office Visit Appointment Date:04/15/2022 08:45:00 AM Scheduled Provider:Ivelisse Hassan MD Location:[facility] Appointment Type:URO Office Visit [facility] evaluation + Plan note Future Appointments Appointment Date:06/24/2022 09:30:00 AM Scheduled Provider:Ivelisse Hassan MD Location:[facility] Appointment Type:URO Office Visit [facility] evaluation + Plan note Future Appointments Appointment Date:01/13/2023 09:00:00 AM Scheduled Provider:Ivelisse Hassan MD Location:[facility] Appointment Type:URO Office Visit [facility] evaluation + Plan note Future Appointments Appointment Date:09/01/2023 11:00:00 AM Scheduled Provider:Ivelisse Hassan MD Location:[facility] Appointment Type:URO Office Visit [facility] Evaluation + Plan note Future Appointments Appointment Date:09/01/2023 11:00:00 AM Scheduled Provider:Ivelisse Hassan MD Location:[facility] Appointment Type:URO Office Visit Diagnostic Tests Pending * Calculi Analysis [facility] Diagnosis Onset Date Resolution Status AAA (abdominal aortic aneurysm) acute [facility] Work Phone: evaluation noteNo assessment information available [facility] Work Phone: evaluation noteNo InformationNort [employer] Other Evaluation note* Diagnosis Onset Date Resolution Status Left carotid stenosis acute [facility] Work Phone: Evaluation note* Diagnosis Onset Date Resolution Status Hypercholesterolemia acute IFG (impaired fasting glucose) acute Kidney stones acute Nonrheumatic aortic (valve) stenosis acute Peripheral artery disease [place] Primary hypertension acute [facility] Work Phone: evaluation note* Diagnosis Onset Date Resolution Status Gallbladder polyp acute Hypercholesterolemia acute IFG (impaired fasting glucose) acute Nonrheumatic aortic (valve) stenosis acute Paget's disease of bony pelvis acute Peripheral artery disease [place] Primary hypertension acute [facility] Work Phone: evaluation note* Diagnosis Onset Date Resolution Status Gallbladder polyp acute Hypercholesterolemia acute IFG (impaired fasting glucose) acute Nonrheumatic aortic (valve) stenosis acute Paget's disease of bony pelvis acute Peripheral artery disease [place] Primary hypertension acute AAA (abdominal aortic aneurysm) without rupture acute [facility] Work Phone: evaluation note* Diagnosis Onset Date Resolution Status Gallbladder polyp acute Hypercholesterolemia acute IFG (impaired fasting glucose) acute Nonrheumatic aortic (valve) stenosis acute Paget's disease of bony pelvis acute Peripheral artery disease [place] Primary hypertension acute AAA (abdominal aortic aneurysm) without rupture acute AAA (abdominal aortic aneurysm) without rupture acute Benign prostatic hyperplasia with lower urinary tract symptoms acute Gallbladder polyp acute Hypercholesterolemia acute Mass of gallbladder acute Nonrheumatic aortic (valve) stenosis acute Paget's disease of bony pelvis acute Peripheral artery disease [place] Primary hypertension acute [facility] Work Phone: evaluation note* Diagnosis Onset Date Resolution Status Hypercholesterolemia acute IFG (impaired fasting glucose) acute Nonrheumatic aortic (valve) stenosis acute Paget's disease of bony pelvis acute Peripheral artery disease [place] Primary hypertension acute AAA (abdominal aortic aneurysm) without rupture acute AAA (abdominal aortic aneurysm) without rupture acute Benign prostatic hyperplasia with lower urinary tract symptoms acute Hypercholesterolemia acute Mass of gallbladder acute Nonrheumatic aortic (valve) stenosis acute Paget's disease of bony pelvis acute Peripheral artery disease [place] Primary hypertension acute AAA (abdominal aortic aneurysm) without rupture acute Hypercholesterolemia acute IFG (impaired fasting glucose) acute Mass of gallbladder acute Nonrheumatic aortic (valve) stenosis acute Peripheral artery disease [place] Primary hypertension acute Preop exam for internal medicine noneactive [facility] Work Phone: Evaluation note* Diagnosis Onset Date Resolution Status Hypercholesterolemia acute IFG (impaired fasting glucose) acute Nonrheumatic aortic (valve) stenosis acute Paget's disease of bony pelvis acute Peripheral artery disease [facility] Primary hypertension acute AAA (abdominal aortic aneurysm) without rupture acute AAA (abdominal aortic aneurysm) without rupture acute Benign prostatic hyperplasia with lower urinary tract symptoms acute Hypercholesterolemia acute Mass of gallbladder acute Nonrheumatic aortic (valve) stenosis acute Paget's disease of bony pelvis acute Peripheral artery disease [facility] Primary hypertension acute AAA (abdominal aortic aneurysm) without rupture acute Hypercholesterolemia acute IFG (impaired fasting glucose) acute Mass of gallbladder acute Nonrheumatic aortic (valve) stenosis acute Peripheral artery disease [facility] Primary hypertension acute Preop exam for internal medicine noneactive AAA (abdominal aortic aneurysm) without rupture acute Benign prostatic hyperplasia with lower urinary tract symptoms acute Hypercholesterolemia acute Mass of gallbladder acute Nonrheumatic aortic (valve) stenosis acute Paget's disease of bony pelvis acute Peripheral artery disease [facility] Primary hypertension acute [facility] Work Phone: Evaluation note* Diagnosis Onset Date Resolution Status AAA (abdominal aortic aneurysm) without rupture acute Benign prostatic hyperplasia with lower urinary tract symptoms acute Hypercholesterolemia acute Mass of gallbladder acute Nonrheumatic aortic (valve) stenosis acute Paget's disease of bony pelvis acute Peripheral artery disease [facility] Primary hypertension acute AAA (abdominal aortic aneurysm) without rupture acute Hypercholesterolemia acute IFG (impaired fasting glucose) acute Mass of gallbladder acute Nonrheumatic aortic (valve) stenosis acute Peripheral artery disease [facility] Primary hypertension acute Preop exam for internal medicine noneactive AAA (abdominal aortic aneurysm) without rupture acute Benign prostatic hyperplasia with lower urinary tract symptoms acute Hypercholesterolemia acute Mass of gallbladder acute Nonrheumatic aortic (valve) stenosis acute Paget's disease of bony pelvis acute Peripheral artery disease [place] Primary hypertension acute Acute on chronic heart failu re with preserved ejection fraction (HFpEF) acute Atrial fibrillation acute Hypercholesterolemia acute IFG (impaired fasting glucose) acute Nonrheumatic aortic (valve) stenosis acute NSTEMI (non-ST elevated myocardial infarction) acute Primary hypertension acute [facility] Work Phone: Evaluation note* Diagnosis Onset Date Resolution Status AAA (abdominal aortic aneurysm) without rupture acute Benign prostatic hyperplasia with lower urinary tract symptoms acute Hypercholesterolemia acute Mass of gallbladder acute Nonrheumatic aortic (valve) stenosis acute Paget's disease of bony pelvis acute Peripheral artery disease [place] Primary hypertension acute AAA (abdominal aortic aneurysm) without rupture acute Hypercholesterolemia acute IFG (impaired fasting glucose) acute Mass of gallbladder acute Nonrheumatic aortic (valve) stenosis acute Peripheral artery disease [place] Primary hypertension acute Preop exam for internal medicine noneactive AAA (abdominal aortic aneurysm) without rupture acute Benign prostatic hyperplasia with lower urinary tract symptoms acute Hypercholesterolemia acute Mass of gallbladder acute Nonrheumatic aortic (valve) stenosis acute Paget's disease of bony pelvis acute Peripheral artery disease [place] Primary hypertension acute Acute on chronic heart failu re with preserved ejection fraction (HFpEF) acute Atrial fibrillation acute Hypercholesterolemia acute IFG (impaired fasting glucose) acute Nonrheumatic aortic (valve) stenosis acute NSTEMI (non-ST elevated myocardial infarction) acute Primary hypertension acute AAA (abdominal aortic aneurysm) without rupture acute Carotid stenosis, bilateral acute Former smoker acute [facility] Work Phone: Evaluation note* Diagnosis Onset Date Resolution Status AAA (abdominal aortic aneurysm) without rupture acute Hypercholesterolemia acute IFG (impaired fasting glucose) acute Mass of gallbladder acute Nonrheumatic aortic (valve) stenosis acute Peripheral artery disease [place] Primary hypertension acute Preop exam for internal medicine noneactive AAA (abdominal aortic aneurysm) without rupture acute Benign prostatic hyperplasia with lower urinary tract symptoms acute Hypercholesterolemia acute Mass of gallbladder acute Nonrheumatic aortic (valve) stenosis acute Paget's disease of bony pelvis acute Peripheral artery disease [place] Primary hypertension acute Acute on chronic heart [...] elevated myocardial infarction) acute Primary hypertension acute [facility] Work Phone: Evaluation note* Diagnosis [...] aortic (valve) stenosis acute Primary hypertension acute [facility] Work Phone: Evaluation note* Diagnosis [...] (nonsustained ventricular tachycardia) acute Primary hypertension acute [facility] Work Phone: Evaluation note* Diagnosis [...] (abdominal aortic aneurysm) without rupture acute [facility] Work Phone: Hisduva general Narrative - Reported* Type Description Date Medical History hypercholesterolemia Medical History abdominal aortic aneurysm Medical History Carotid stenosis Medical History PAD Surgical History TURP Surgical History knee arthroscopy LEFT Surgical History Vein stripping Hospitalization History See Above Shopt[employer] Other Hishaqq general Narrative - Reported* Type Description Date Medical History hypercholesterolemia Medical History abdominal aortic aneurysm Medical History Carotid stenosis Medical History PAD Surgical History TURP Surgical History knee arthroscopy LEFT Surgical History Vein stripping Surgical History RT FEMUR FX WITH ARABELLA PLACEMENT Hospitalization History See Above Shoptiques Other Hisuruz general Narrative - Reported* Type Description Date Medical History hypercholesterolemia Medical History abdominal aortic aneurysm Medical History Carotid stenosis Medical History PAD Medical History [ ] Surgical History TURP Surgical History knee arthroscopy LEFT Surgical History Vein stripping Surgical History RT FEMUR FX WITH ARABELLA PLACEMENT Surgical History EVAR 02/04/2022 Surgical History [ ] Hospitalization History See Above Shoptiques Other Hisnlhq general Narrative - Reported* Type Description Date [...] History COLONOSCOPY 2019 Hospitalization History See Above Shoptiques Other History general Narrative - Reported* Type [...] Left TCAR 07/2022 Hospitalization History See Above Shopt[employer] Other History general Narrative - Reported* Type [...] Left TCAR 07/2022 Hospitalization History See Above Shopt[employer] Other History general Narrative - Reported* Type [...] left ESWL 03/2023 Hospitalization History See Above Shoptiques Other Hospital course Narrative No data available for this section [facility] Discharge instructions No data available for this section [facility] Author Raul Quan [facility] October 15, 2021 4:31pm Note Date/Time October 15, 2021 4: 31pm [facility] [address] [place] [address] Vascular Surgery Progress Note Signed Patient: Chico Baker MR#: [id number] : 1940 Acct:[id number] Age/Sex: 81 / M Adm Date: 2 Loc: 4N Room: 0H7383-5 Type: DIS IN Attending Dr: Raul Quan [...] evaluation here. I will contact [facility] to performoutpatient cardiac evaluation and then he will be rescheduled when he is cleared. Code(s): I71.4 - Abdominal aortic aneurysm, without rupture Status: Acute Documented By: Raul Quan MD 10/15/21 162 9 Signed By: <Electronically signed by MD Raul Quan> 10/15/21 1631 [facility] Work Phone: Progress note Author Pb Zurita [facility] October 16, 2021 5:41am Note Date/Time October 16, 2021 5: 41am [facility] [address] [place] [address] Anesthesia Progress Note Signed Patient: Chico Baker MR#: [id number] : 1940 Acct:[id number] Age/Sex: 81 / M Adm Date: 2 Loc: 4N Room: 4V3338-6 Type: DIS IN Attending Dr: Raul Quan MD Copies to: ~ Anesthesia Progress Note Narrative Narrative: Patient for EVAR today for 5+ centimeter infrarenal AAA. Past medical history hypertension, moderate aortic stenosis, and coronary artery disease. Review of medical records and discussion with indicates patient had stress test 2008 positive for infarct and ischemia at which time he was referred to [facility] and had cardiac cath. Medical management was apparently chosen. No interval events,testing, or intervention. Patient has been asymptomatic but sedentary and poor historian. Advised patient and family to see life skills specialist for consideration of preop stress testing. Discussed with surgeon Documented By: Pb Zurita MD 10/16/21 0535 Signed By: <Electronically signed by Pb Zurita MD> 10/16/21 0541 [facility] Work Phone: Progress note No data available for this section [facility] Reason for Referral No Reason [...] Encounter for Immunization 1st COVID Vaccine manuel ximena Lisandra Sher PharmD 06/13/2020 Instructions Instructions not [...] Response Recorded Date/ Time Advance Directives No Faraz 16th , 2019 12:37pm Summary Purpose Chief Complaint and Reason [...] S/P EVAR; CTA [facility] Nonrheumatic aortic stenosis sugical clearance, gall bladder [...] Complaint i71.4 BP check S/P EVAR; [facility] Nonrheumatic aortic stenosis sugical clearance, gall bladder [...] Complaint i71.4 BP check S/P EVAR; CT[facility] Nonrheumatic aortic stenosis sugical clearance, gall bladder [...] section and content) DATE CREATED AUTHOR 04/02/2021 [facility] DATE CREATED AUTHOR AUTHOR'S ORGANIZ ATION 10/28/2021 [facility] DATE CREATED AUTHOR AUTHOR'S ORGANIZ ATION 04/14/2022 [facility] DATE CREATED AUTHOR AUTHOR'S ORGANIZ ATION 05/13/2023 [facility] DATE CREATED AUTHOR AUTHOR'S ORGANIZ ATION 07/29/2023 [facility] DATE CREATED AUTHOR AUTHOR'S ORGANIZ ATION 01/12/2024 [facility] DATE CREATED AUTHOR AUTHOR'S ORGANIZ ATION 03/24/2024 [facility] REASON FOR VISIT (unrecogniz ed section and content) REF BY DR DUHNAM FOR AAA, PAD AND CAROTID STENOSIS, Needs a new vascular surgeon7 WK FOLLOW UP; SHYANNE'S, ABDOMINAL, CAROTID WK FOLLOW UP; SHYANNE'S, ABDOMINAL, CAROTID 08/27/21FOLLOW UP AFTER CTA REPLACED BY [facility] 09/18/21-AAAAAA see pt post femur fx rt and clavicle rt6 WK FOLLOW UP, Follow-up abdominal aortic aneurysmVASC 3 MONTH FOLLOW UP; CAROTID DUPLEX 11A, Abdominal aortic aneurysm3 week f/u EVAR, Follow-up after percutaneous aneurysm repairNo InformationNo InformationNo InformationNo InformationNo Information2 MONTH FOLLOW UP; [facility] Follow UpNo InformationNo InformationNo Information3 week f/u left TCAR, Follow-up TCAR3 MONTH FOLLOW UP; CAROTID DUPLEX 10A, Follow-up after left TCARNo InformationTBH follow upNo InformationNo InformationBP readings/concern1 week1 weekBP reading Care Teams (unrecognized sec tion and content) Team Status: Active Member Role Status Kirk Dunham DO Primary Care Provider Active Team Status: Active Member Role Status Krik Dunham DO Primary Care Provide r, Attending [...] Member Role Status Dates Sheri Christiansen MD Residential Property Consultant Active Shailesh Dunham DO Primary Care Provider [...] Active Start: October 14, 2023 Raul Chadwick , Attending Provider Active S tart: October 14, [...] 2024 Team Status: Active Member Role Status Dates [...] BE BASED ON THE PRIMARY CLINICAL RECORDS. [employer] provides no warranty or guarantee of the accuracy or completeness of information in this document.
[2024-04-06 12:14] LABS: Basophils Absolute Auto 0.1 10^3/uL (0.0-0.1); Basophils Percent Auto 0.6 % (0.2-2.0); Eosinophils Absolute Auto 0.2 10^3/uL (0.0-0.7); Eosinophils Percent Auto 2.3 % (0.9-7.0); Hematocrit 38.4 % (42.0-54.0); Hemoglobin 12.2 g/dL (14.0-18.0); Immature Granulocytes Abs Auto 0.02 10^3/uL (0.00-0.03); Immature Granulocytes Pct Auto 0.2 % (0.0-0.5); Lymphocytes Absolute Auto 1.6 10^3/uL (1.2-3.8); Lymphocytes Percent Auto 19.1 % (20.5-60.0); Mean Corpuscular HGB Conc 31.8 g/dL (29.9-35.2); Mean Corpuscular Hemoglobin 29.7 pg (25.9-34.0); Mean Corpuscular Volume 93.4 fL (80.0-94.0); Mean Platelet Volume 9.6 fL (9.5-13.5); Monocytes Absolute Auto 0.9 10^3/uL (0.3-0.8); Monocytes Percent Auto 10.9 % (1.7-12.0); Neutrophils Absolute Auto 5.5 10^3/uL (1.4-6.5); Neutrophils Percent Auto 66.9 % (43.0-75.0); Platelet Count 179 10^3/uL (150-450); Red Blood Count 4.11 10^6/uL (4.70-6.10); Red Cell Distribution Width 12.9 % (11.0-15.0); White Blood Count 8.2 10^3/uL (4.0-11.0)
[2024-04-06 12:45] LABS: Anion Gap 9.1; Carbon Dioxide 30.5 mmol/L (21.0-32.0); Chloride 102 mmol/L (98-107); Estimated GFR (African America >60 (>=60 mL/min/1.73m^2); Estimated GFR (Non-African Ame >60 (>=60 mL/min/1.73m^2); Glucose 114 mg/dL (74-106); Potassium 4.6 mmol/L (3.5-5.1); Sodium 137 mmol/L (136-145)
== END 2024-04-06 11:53 | disposition home or self-care (01) ==
LOC: LAB 11:53
PROVIDERS: PCP Internal Medicine; Visit Provider Internal Medicine Cardiovascular Disease
DX: Z01.812 Encounter for preprocedural laboratory examination (principal); Z01.818 Encounter for other preprocedural examination
CPT/HCPCS: 36415; 80048; 85025

== ENCOUNTER 2024-05-25 13:58 | Outpatient (OUT) | payer MEDICARE, OTHER, SELFPAY ==
[2024-05-25 15:01] LABS: Anion Gap 10.2; BUN Creatinine Ratio 16.5; Calcium 8.6 mg/dL (8.5-10.1); Carbon Dioxide 30.2 mmol/L (21.0-32.0); Chloride 104 mmol/L (98-107); Estimated GFR (African America >60 (>=60 mL/min/1.73m^2); Estimated GFR (Non-African Ame >60 (>=60 mL/min/1.73m^2); Glucose 96 mg/dL (74-106); Potassium 4.4 mmol/L (3.5-5.1); Sodium 140 mmol/L (136-145)
== END 2024-05-25 13:59 | disposition home or self-care (01) ==
PROVIDERS: PCP Internal Medicine; Visit Provider Internal Medicine Cardiovascular Disease
DX: Z01.818 Encounter for other preprocedural examination (principal)
CPT/HCPCS: 36415; 80048

== ENCOUNTER 2024-06-21 11:02 | Outpatient (OUT) | payer MEDICARE, OTHER, SELFPAY ==
[2024-06-21 11:34] LABS: Basophils Absolute Auto 0.1 10^3/uL (0.0-0.1); Basophils Percent Auto 0.8 % (0.2-2.0); Eosinophils Absolute Auto 0.1 10^3/uL (0.0-0.7); Eosinophils Percent Auto 2.2 % (0.9-7.0); Hematocrit 34.3 % (42.0-54.0); Immature Granulocytes Abs Auto 0.02 10^3/uL (0.00-0.03); Immature Granulocytes Pct Auto 0.3 % (0.0-0.5); Lymphocytes Percent Auto 16.1 % (20.5-60.0); Mean Corpuscular HGB Conc 32.1 g/dL (29.9-35.2); Mean Corpuscular Hemoglobin 29.6 pg (25.9-34.0); Mean Corpuscular Volume 92.5 fL (80.0-94.0); Mean Platelet Volume 9.7 fL (9.5-13.5); Monocytes Absolute Auto 0.8 10^3/uL (0.3-0.8); Neutrophils Absolute Auto 4.3 10^3/uL (1.4-6.5); Neutrophils Percent Auto 67.6 % (43.0-75.0); Platelet Count 147 10^3/uL (150-450); Red Blood Count 3.71 10^6/uL (4.70-6.10); Red Cell Distribution Width 12.6 % (11.0-15.0); White Blood Count 6.4 10^3/uL (4.0-11.0)
[2024-06-21 11:42] LABS: Anion Gap 7.6; BUN Creatinine Ratio 15.4; Calcium 8.4 mg/dL (8.5-10.1); Carbon Dioxide 31.8 mmol/L (21.0-32.0); Chloride 105 mmol/L (98-107); Estimated GFR (African America >60 (>=60 mL/min/1.73m^2); Estimated GFR (Non-African Ame >60 (>=60 mL/min/1.73m^2); Glucose 119 mg/dL (74-106); Potassium 4.4 mmol/L (3.5-5.1); Sodium 140 mmol/L (136-145)
== END 2024-06-21 11:03 | disposition home or self-care (01) ==
LOC: LAB 11:04
PROVIDERS: PCP Internal Medicine; Visit Provider Internal Medicine Interventional Cardiology
DX: I35.0 Nonrheumatic aortic (valve) stenosis (principal); I08.0 Rheumatic disorders of both mitral and aortic valves
CPT/HCPCS: 36415; 80048; 82042; 85025

== ENCOUNTER 2024-07-18 11:36 | Outpatient (OUT) | payer MEDICARE, OTHER, SELFPAY ==
[2024-07-18 11:55] LABS: Basophils Percent Auto 0.5 % (0.2-2.0); Eosinophils Absolute Auto 0.1 10^3/uL (0.0-0.7); Eosinophils Percent Auto 1.8 % (0.9-7.0); Hematocrit 34.5 % (42.0-54.0); Hemoglobin 11.1 g/dL (14.0-18.0); Immature Granulocytes Abs Auto 0.02 10^3/uL (0.00-0.03); Immature Granulocytes Pct Auto 0.3 % (0.0-0.5); Lymphocytes Absolute Auto 1.3 10^3/uL (1.2-3.8); Lymphocytes Percent Auto 16.8 % (20.5-60.0); Mean Corpuscular HGB Conc 32.2 g/dL (29.9-35.2); Mean Corpuscular Hemoglobin 30.3 pg (25.9-34.0); Mean Corpuscular Volume 94.3 fL (80.0-94.0); Monocytes Percent Auto 12.1 % (1.7-12.0); Neutrophils Absolute Auto 5.4 10^3/uL (1.4-6.5); Neutrophils Percent Auto 68.5 % (43.0-75.0); Platelet Count 158 10^3/uL (150-450); Red Blood Count 3.66 10^6/uL (4.70-6.10); Red Cell Distribution Width 13.2 % (11.0-15.0); White Blood Count 7.8 10^3/uL (4.0-11.0)
[2024-07-18 11:59] LABS: Anion Gap 10.1; Calcium 8.9 mg/dL (8.5-10.1); Carbon Dioxide 29.3 mmol/L (21.0-32.0); Chloride 103 mmol/L (98-107); Estimated GFR (African America >60 (>=60 mL/min/1.73m^2); Estimated GFR (Non-African Ame >60 (>=60 mL/min/1.73m^2); Glucose 129 mg/dL (74-106); Potassium 4.4 mmol/L (3.5-5.1); Sodium 138 mmol/L (136-145)
== END 2024-07-18 11:37 | disposition home or self-care (01) ==
LOC: LAB 11:40
PROVIDERS: PCP Internal Medicine; Visit Provider Internal Medicine Interventional Cardiology
DX: I35.0 Nonrheumatic aortic (valve) stenosis (principal)
CPT/HCPCS: 36415; 80048; 85025

== ENCOUNTER 2024-08-22 09:35 | Outpatient (OUT) | payer MEDICARE, OTHER, SELFPAY ==
--- OUTSIDE RECORDS SUMMARY | 2024-08-10 13:40 | XMS_ITS | Encounter Summary ---
Author Organization [facility] Address [address] [place] [address] Care Team Providers Care Wrapper Stemmer Hand Name Role Phone KarelShailesh Primary Care Provider [phone] Reason for Referral * (Routine) - Pending Review Specialty Diagnoses / Procedures Referred By Contac t Referred To Contact Diagnoses S/P TAVR (transcatheter aortic valve replacement) Procedures ECG 12 lead Kimani Spring MD [address] [facility] [address] [place] [address] Phone: tel: fax: Referral ID Status Reason Start Date Expiration Date V isits Requested Visits Authorized [id number] Pending Review 08/10/2024 08/10/2025 1 1 Reason for Visit * Reason Comments Follow-up 1 week S/P TAVR Encounter Details Date Type Department Care Team (Late st Contact Info) Description 08/10/2024 1:40 PM EDT Follow-Up [facility] [address] [place] [id number] Kimani Spring MD [address] [facility] [address] [place] [address] S/P TAVR (transcatheter aortic valve replacement) (Primary Dx); Primary hypertension; Coronary artery disease involving augustine coronary artery of augustine heart without angina pectoris; PAF (paroxysmal atrial fibrillation) (CMS/HCC); Status post insertion of drug eluting coronary artery stent; PAD (peripheral artery disease) Social History Tobacco Use Types Packs/Day Years Used Date Smoking Tobacco: Former Cigarettes 2 40 1 958 - 1997 Smokeless Tobacco: Never Tobacco Cessation:Counseling Given: Not Answered Alcohol Use Standard Drinks/Week Comments Not Currently 3 (1 standard drink = 0.6 oz pur e alcohol) 4x week- [employer] [facility] Telebitities Answer Date Recorded In the past 12 months has th e [place], gas, oil, or water [employer] threatened to shut off services in your home? No 08/02/2024 Humiliation, Afraid, Rape, and Kick questionnair e Answer Date Recorded Within the last year, have y ou been afraid of your partner or ex-partner? No 08/10/2024 Emotionally Abused Not on file 08/10/2024 Physically Abused Not on file 08/10/2024 Sexually Abused Not on file 08/10/2024 Overall Financial Resource Strain (CARDIA) Answe r Date Recorded How hard is it for you to pa y for the very basics like food, housing, medical care, and heating? Not very hard 08/02/2024 PHQ-2 Answer Date Recorded Patient Health Questionnaire-2 Score 0 08/10/2024 Transportation Answer Date Recorded In the past 12 months, has l ack of transportation kept you from medical appointments or from getting medications? No 08/02/2024 Lack of Transportation (Non-Medical) Not on file 08/02/2024 Housing Stability Vital Sign Answer Brent e Recorded In the last 12 months, was t here a time when you were not able to pay the mortgage or rent on time? No 08/02/2024 Number of Times Moved in the Last Year Not on fi le 08/02/2024 At any time in the past 12 m [facility] [place] were you homeless or living in a [place] (including now)? No 08/02/2024 Hunger Vital Sign Answer Date Recorded Within the past 12 months, y ou worried that your food would run out before you got the money to buy more. Never true 08/03/19 25 Ran Out of Food in the Last Year Not on file 08/02/2024 Sex and Gender Information Value Date Recorded Sex Assigned at Male 07/07/2024 8:39 AM EDT Legal Sex Male 12:28 AM EDT Gender Identity Male 07/07/2024 8:39 AM EDT Sexual Orientation Heterosexual or Straight 04/2024 8:39 AM EDT documented as of this encounter Last Filed Vital Signs Vital Sign Reading Time Taken Comments Blood Pressure 164/79 08/10/2024 1:54 PM EDT Pulse 78 08/10/2024 1:54 PM EDT Temperature - - Respiratory Rate - - Oxygen Saturation - - Inhaled Oxygen Concentration - - Weight 57.6 kg (127 lb) 08/10/2024 1:43 PM EDT Height 167.6 cm (5' 6 ) 08/10/2024 1:43 PM EDT Body Mass Index 20.5 08/10/2024 1:43 PM EDT documented in this encounter Functional Status documented as of this encounter Progress Notes * Kimani Spring MD - 08/10/2024 1:40 PM EDT Images from the original note were not included. [facility] Subjective Reynaldo Polanco is a 84 y.o. year old male patient being seen for Follow-up (1 week S/P TAVR) Patient Active Problem List Diagnosis Abnormal CT scan ASHD (arteriosclerotic heart disease) Benign prostatic hyperplasia with lower urinary tract symptoms Closed nondisplaced fracture of sternal end of right clavicle Contrast media allergy Diverticulosis Dysuria Femur fracture (CMS/HCC) Foreign body in bladder Hypercholesterolemia Hyperlipidemia IFG (impaired fasting glucose) ED (erectile dysfunction) Impotence Kidney stones Left carotid stenosis Asymptomatic microscopic hematuria Gross hematuria Mixed incontinence Nocturia Gallbladder polyp 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 Preop cardiovascular exam Primary hypertension Rash of genitalia Right upper quadrant pain Ureteral stone 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 Post-void dribbling Urge incontinence Urgency of urination Vitamin D deficiency History of kidney stones Microhematuria 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 Acute on chronic heart failure with preserved ejection fraction (HFpEF) (CMS/HCC) Paroxysmal atrial fibrillation (CMS/HCC) Clostridium difficile colitis Diarrhea NSTEMI (non-ST elevated myocardial infarction) (CMS/HCC) NSVT (nonsustained ventricular tachycardia) (CMS/HCC) Abnormal stress test Coronary artery disease involving augustine coronary artery of augustine heart with angina pectoris Triple vessel coronary artery disease Hx of ventricular tachycardia S/P cholecystectomy Hx of carotid stenosis Hemoptysis Abrasion of trachea Aortic stenosis, severe Fever Urinary tract infection without hematuria 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 (CMS/HCC) Slow transit constipation Coronary artery disease involving augustine coronary artery of augustine heart without angina pectoris Abdominal aortic aneurysm (AAA) Family History Problem Relation Name Age of Onset Heart disease Mother No Known Problems Father No Known Problems Sister Social History Tobacco Use Smoking status: Former Current packs/day: 0.00 Average packs/day: 2.0 packs/day for 40.0 years (80.0 ttl pk-yrs) Types: Cigarettes Start date: 1957 Quit date: 1997 Years since quittin.4 Smokeless tobacco: Never Vaping Use Vaping status: Never Used Substance Use Topics Alcohol use: Not Currently Alcohol/week: 3.0 standard drinks of alcohol Types: 3 Shots of liquor per week Comment: 4x week- whiskey Drug use: Never HPI Reynaldo is seen in follow-up. He is a 84-year-old man with history of peripheral vascular disease who underwent cholecystectomy and partial liver resection on 10/12/2023 and developed postoperative atrial fibrillation and was started on Eliquis. He was also found to have runs of nonsustained ventricular tachycardia. He then underwent cardiac catheterization due to a stress test showing a fixed defect in the inferoapical region.This was performed on 04/12/2024 and showed severe three-vessel coronary artery disease. He also has severe low-flow low gradient aortic valve stenosis. He has prior history significant for EVAR for abdominal aortic aneurysm repair in January of 2022,left carotid artery stenosis stenting in 2022. He was evaluated by cardiothoracic surgery service Dr. Kiko Jones. He was deemed to be high riskfor CABG and AVR with an operative mortality at 7.8% and risk of morbidity and mortality at 32.1%. Him and his were not interested in open heart surgery. He was discussed at the multidisciplinary team meeting and the decision was to proceed with revascularization of the coronary artery disease percutaneously followed by TAVR. Due to his peripheral vascular disease the decision was to proceed with alternative access and the carotid artery was chosen as the best access route for that procedure. He underwent percutaneous coronary intervention to the LAD with a drug-eluting stent, the first OM with a drug-eluting stent and a second OM with balloon angioplasty on 06/27/2024. Earlier that day a transesophageal echocardiogram was attempted but was not able to be performed as the GEORGE probe wouldnot go to the esophagus. Later that day he developed hemoptysis and was managed conservatively during the hospital. He underwent bronchoscopy by pulmonary team that showed some abrasions. His hemoptysis stopped. He was discharged from the hospital on triple therapy to discontinue aspirin subsequently. He then underwent TAVR on 08/01/2024 the right carotid surgical cutdown access using a evolute self-expanding TAVR valve. He did well with the procedure but he developed a small hematoma at the carotid access site. His beta-patel and losartan were discontinued after the procedure due to bradycardia and hypotension. Today he reports that he feels weak and fatigued. He has nonspecific complaints of chest discomfort. He continues to have shortness of breath with exertion although he is not exerting himself very much. He is at home and underwent an evaluation for physical therapy and will have home health and physical therapy starting soon. Review of Systems Constitutional: Positive for malaise/fatigue. Cardiovascular: Positive for chest pain (ache in chest) and dyspnea on exertion. Respiratory: Positive for cough, shortness of breath and sputum production. Hematologic/Lymphatic: Bruises/bleeds easily. Gastrointestinal: Positive for bloating (feels full). Neurological: Positive for dizziness, light-headedness and weakness. Objective Visit Vitals BP 164/79 (BP Location: Left arm, Patient Position: Standing) Pulse 78 Ht 1.676 m (5' 6 ) Wt 57.6 kg (127 lb) BMI 20.50 kg/m?? Smoking Status Former BSA 1.64 m?? Physical Exam Constitutional: Appearance: He is well-developed. He is not ill-appearing. Comments: Thin appearing HENT: Head: Normocephalic and atraumatic. Nose: Nose normal. Eyes: General: No scleral icterus. Pupils: Pupils are equal, round, and reactive to light. Neck: Thyroid: No thyromegaly. Vascular: No JVD. Comments: Site of right carotid surgical cutdown healing well, mild swelling, likely from small hematoma, diffuse ecchymosis seen. Cardiovascular: Rate and Rhythm: Normal rate and regular rhythm. Pulses: Radial pulses are 1+ on the right side and 2+ on the left side. Heart sounds: Murmur heard. Systolic (RUSB, apex) murmur is present with a grade of 1/6. No friction rub. No gallop. Pulmonary: Effort: Pulmonary effort is normal. No respiratory distress. Breath sounds: Normal breath sounds. No wheezing or rales. Chest: Chest wall: No tenderness. Abdominal: General: Bowel sounds are normal. There is no distension. Palpations: Abdomen is soft. Tenderness: There is no abdominal tenderness. Musculoskeletal: General: No swelling. Cervical back: Neck supple. Skin: General: Skin is warm and dry. Neurological: General: No focal deficit present. Mental Status: He is alert and oriented to person, place, and time. Psychiatric: Mood and Affect: Mood normal. Behavior: Behavior is cooperative. Judgment: Judgment normal. Allergies Allergies Allergen Reactions Larry Inhibitors Hives and Unknown Other Reaction(s): Unknown Gadolinium-Containing Contrast Media Itching and Unknown Iodinated Contrast Media Hives Other Reaction(s): hives Iodine Unknown Tetanus And Diphtheria Toxoids Unknown Tetanus Immune Globulin Other Tetanus Vaccines And Toxoid Unknown and Other Medications Current Outpatient Medications: apixaban (Eliquis) 2.5 mg tablet, Take 1 tablet (2.5 mg) by mouth two times daily., Disp: 180 tablet, Rfl: 3 clopidogrel (Plavix) 75 mg tablet, Take 1 tablet (75 mg) by mouth in the morning., Disp: 90 tablet,Rfl: 3 ferrous sulfate 325 (65 Fe) MG tablet, Take 1 tablet (325 mg) by mouth with breakfast., Disp: 90 tablet, Rfl: 3 folic acid (Folvite) 1 mg tablet, Take 1 tablet (1 mg) by mouth in the morning., Disp: 90 tablet, Rfl: 3 pravastatin (Pravachol) 40 mg tablet, Take 40 mg by mouth at bedtime., Disp: , Rfl: amoxicillin (Amoxil) 500 mg tablet, Take 4 tablets (2,000 mg) by mouth 1 (one) time if needed (30-60 minutes prior to dental procedure.) for up to 1 dose., Disp: 30 tablet, Rfl: 3 losartan (Cozaar) 25 mg tablet, Take 1 tablet (25 mg) by mouth at bedtime., Disp: 90 tablet, Rfl: 3 Recent Labs No results displayed because visit has over 200 results. Hospital Outpatient Visit on 08/01/2024 Component Date Value Glucose POC 08/01/2024 166 (H) Glucose POC 08/01/2024 174 (H) Admission on 06/27/2024, Discharged on 06/30/2024 Component Date Value Ventricular Rate 06/27/2024 65 Atrial Rate 06/27/2024 65 SC Interval 06/27/2024 166 QRS DURATION 06/27/2024 92 QT Interval 06/27/2024 428 QTC CALCULATION(BAZETT) 06/27/2024 445 P [place] 06/27/2024 54 R-[place] 06/27/2024 63 T Wave [place] 06/27/2024 18 Ventricular Rate 06/27/2024 74 Atrial Rate 06/27/2024 74 SC Interval 06/27/2024 164 QRS DURATION 06/27/2024 90 QT Interval 06/27/2024 392 QTC CALCULATION(BAZETT) 06/27/2024 435 P [place] 06/27/2024 49 R-[place] 06/27/2024 61 T Wave [place] 06/27/2024 13 Hemoglobin 06/28/2024 10.4 (L) Hematocrit 06/28/2024 31.5 (L) Sodium 06/28/2024 135 (L) Potassium 06/28/2024 4.4 Chloride 06/28/2024 105 CO2 06/28/2024 24 BUN 06/28/2024 27 (H) Creatinine 06/28/2024 0.75 Glucose 06/28/2024 109 (H) Calcium 06/28/2024 8.2 (L) Anion Gap 06/28/2024 10 eGFR 06/28/2024 90.1 BUN/Creatinine Ratio 06/28/2024 36.0 Magnesium 06/28/2024 1.8 (L) Auto WBC 06/28/2024 11.44 (H) RBC 06/28/2024 3.45 (L) Hemoglobin 06/28/2024 10.5 (L) Hematocrit 06/28/2024 31.5 (L) MCV 06/28/2024 91.3 MCH 06/28/2024 30.4 MCHC 06/28/2024 33.3 RDW 06/28/2024 12.7 Platelets 06/28/2024 155 POCT ACT 06/27/2024 310 (A) QC Pass/Fail 06/27/2024 Passed QC LOT # 06/27/2024 8 QC Expiration Date 06/27/2024 73,125 POCT ACT 06/27/2024 293 (A) QC Pass/Fail 06/27/2024 Passed QC LOT # 06/27/2024 8 QC Expiration Date 06/27/2024 73,125 Hemoglobin 06/28/2024 10.6 (L) Hematocrit 06/28/2024 32.7 (L) Hemoglobin 06/28/2024 10.0 (L) Hematocrit 06/28/2024 30.6 (L) Hemoglobin 06/29/2024 10.6 (L) Hematocrit 06/29/2024 32.4 (L) Auto WBC 06/29/2024 8.52 RBC 06/29/2024 3.39 (L) Hemoglobin 06/29/2024 10.0 (L) Hematocrit 06/29/2024 31.2 (L) MCV 06/29/2024 92.0 MCH 06/29/2024 29.5 MCHC 06/29/2024 32.1 RDW 06/29/2024 13.0 Platelets 06/29/2024 164 Sodium 06/29/2024 133 (L) Potassium 06/29/2024 4.2 Chloride 06/29/2024 104 CO2 06/29/2024 25 BUN 06/29/2024 29 (H) Creatinine 06/29/2024 0.73 Glucose 06/29/2024 95 Calcium 06/29/2024 8.1 (L) Anion Gap 06/29/2024 8 eGFR 06/29/2024 90.8 BUN/Creatinine Ratio 06/29/2024 39.7 Iron 06/29/2024 40 (L) TIBC 06/29/2024 227 (L) Iron Saturation 06/29/2024 18 (L) UIBC 06/29/2024 187.0 Folate 06/29/2024 7.77 Vitamin B-12 06/29/2024 373 Transferrin 06/29/2024 195 Ferritin 06/29/2024 168.0 Hemoglobin 06/29/2024 10.7 (L) Hematocrit 06/29/2024 33.7 (L) Hemoglobin 06/29/2024 8.9 (L) Hematocrit 06/29/2024 27.7 (L) Auto WBC 06/30/2024 6.53 RBC 06/30/2024 3.11 (L) Hemoglobin 06/30/2024 9.3 (L) Hematocrit 06/30/2024 29.0 (L) MCV 06/30/2024 93.2 MCH 06/30/2024 29.9 MCHC 06/30/2024 32.1 RDW 06/30/2024 12.7 Platelets 06/30/2024 161 Sodium 06/30/2024 132 (L) Potassium 06/30/2024 3.9 Chloride 06/30/2024 103 CO2 06/30/2024 24 BUN 06/30/2024 22 Creatinine 06/30/2024 0.73 Glucose 06/30/2024 93 Calcium 06/30/2024 7.8 (L) Anion Gap 06/30/2024 9 eGFR 06/30/2024 90.8 BUN/Creatinine Ratio 06/30/2024 30.1 Hospital Outpatient Visit on 05/30/2024 Component Date Value Glucose POC 05/30/2024 120 (H) Case Report 05/30/2024 Value:Surgical Pathology Case: [id number] Authorizing Provider: La Nena Brennan MD Collected: 05/30/2024 1351 Ordering Location: [facility] Main Operating Room Received: 05/30/2024 1510 Pathologist: Jez Vazquez MD Specimens: A) - Gastric, r/o h pylori B) - Proximal Esophagus, r/o EOE C) - Distal Esophagus, r/o EOE Addendum 05/30/2024 Value:A. Immunohistochemical staining for Helicobacter pylori is negative. The control is satisfactory. Final Diagnosis 05/30/2024 Value:A. Stomach, biopsy: -Chronic inactive gastritis. -No intestinal metaplasia identified. -See comment. B. Proximal esophagus, biopsy: -Squamous mucosa with no specific abnormality. -No intraepithelial eosinophils identified. C. Distal esophagus, biopsy: -Gastroesophageal junction mucosa with nonspecific chronic inflammation. -No intestinal metaplasia identified. Clinical Information 05/30/2024 Value:Order Diagnoses R13.11 - Oral phase dysphagia [ICD-10-CM] Comment 05/30/2024 Value:A. Immunohistochemical staining for Helicobacter pylori organisms is pending with results to follow in an addendum. Gross Description 05/30/2024 Value:A. Gastric. The specimen is received in formalin labeled Reynaldo Collin and gastric biopsy. It consists of 3 bits and strips of galicia-pink irregular mucosal tissue ranging from 0.2 cm to 0.9 cm in greatest dimension. The specimen is submitted in toto in 1 cassette. Nubia Gutierrez Pathologists' Production Welder student Susy Feliciano, Pathologists' Production Welder B. Proximal Esophagus. The specimen is received in formalin labeled Reynaldo Collin and proximal esophagus biopsy. It consists of 4 bits of galicia-pink irregular mucosal tissue ranging from 0.2 cm to 0.4 cm in greatest dimension. The specimen is submitted in toto in 1 cassette. Nubia Gutierrez Pathologists' Production Welder student Susy Feliciano, Pathologists' Production Welder C. Distal Esophagus. The specimen is received in formalin labeled Reynaldo Collin and distal esophagus biopsy. It consists of 5 bits of galicia-pink irregular mucosal tissue ranging from 0.2 cm to 0.4 cm in greatest dimension. The specimen is submitted in toto in 1 cassette. Nubia Gutierrez Pathologists' Production Welder student Susy Feliciano, Pathologists' Production Welder Microscopic Description 05/30/2024 Value:Microscopic examination performed. Disclaimer 05/30/2024 Value:The interpretation of this case included the use of immunohistochemistry or special stains. These tests have not been cleared or approved by the U.S. Food and Drug Administration. The FDA has determined that such clearance or approval is not necessary. These tests are used for clinical purposes and should not be regarded as investigational or for research. This laboratory is certified to perform high complexity testing under the Clinical Laboratory Improvement Amendments of 1998. Admission on 04/12/2024, Discharged on 04/12/2024 Component Date Value Ventricular Rate 04/12/2024 64 Atrial Rate 04/12/2024 64 SC Interval 04/12/2024 152 QRS DURATION 04/12/2024 88 QT Interval 04/12/2024 416 QTC CALCULATION(BAZETT) 04/12/2024 429 P [place] 04/12/2024 60 R-[place] 04/12/2024 64 T Wave [place] 04/12/2024 44 Imaging and other tests ECG 08/10/2024: Normal sinus rhythm Right axis deviation Non-specific intra-ventricular conduction block Abnormal ECG ECG 08/02/2024: Normal sinus rhythm Anterior infarct (cited on or before 01-AUG-2024) Abnormal ECG Echocardiogram 08/02/2024: Left Ventricle: Global left ventricular systolic function is normal. The EF is 60 % visually. No regional wall motion abnormality. Right Ventricle: Normal right ventricular systolic function. Left Atrium: The left atrium appears normal in size. Aortic Valve: Bioprosthetic valve appears well seated in the aortic position with normal Doppler flows. No aortic valve regurgitation. There is trivial perivalvular regurgitation. Aortic Valve Measurements AV PGmean: 3.00 mmHg. AV Vmax, Caliper: 1.29 m/s. AV DVI: 0.57. Overall Conclusions: Due to suboptimal imaging Lumason contrast was administered foropacification and better delineation of endocardial borders. TAVR 08/01/2024: Successful transcatheter aortic valve replacement using a 29 mm Medtronic Evolut FX+ valve via opensurgical transcarotid access. ECG 06/28/2024: Normal sinus rhythm Normal ECG Cardiac catheterization 06/27/2024: Procedure Performed: Successful balloon angioplasty and drug eluting stenting of 90% stenosis in the mid left anterior descending coronary artery, with reduction of the stenosis to 0% by a Synergy XD 2.5 x 12 mm drug eluting stent. Successful balloon angioplasty and drug eluting stenting of 90% stenosis in the proximal first obtuse marginal of the circumflex, with reduction of the stenosis to 0% by a Synergy XD 2.25 x 16 mm drug eluting stent. Successful balloon angioplasty of 90% stenosis in the proximal second obtuse marginal of the circumflex, with reduction of the stenosis to 30%. Administration of intracoronary nitroglycerin. Access into the left radial artery under ultrasound guidance. Echocardiogram 04/26/2024: Left Ventricle: The left ventricle is normal size. Global left ventricular systolic function is normal. The EF is 55 % visually. Left ventricular wall thickness is normal. No regional wall motion abnormality. Unable to assess diastolic dysfunction. LVOT Vmax measures 0.62 m/s. Concentric cardiac rem odeling. Left Ventricular Measurements LVOT Vmax: 0.62 m/s. Right Ventricle: The right ventricle isnormal in size. Normal right ventricular systolic function. Unable to assess right sided pressures due to lack of measurable tricuspid regurgitation. Left Atrium: The left atrium is normal in size. Aortic Valve: Restricted opening movement of the aortic valve is present. Severe aortic valve calcification is present. No aortic valve regurgitation. Severe aortic valve stenosis.Patient with severe aortic stenosis with low flow low gradient and normal ejection fraction Aortic Valve Measurements AV PGmean: 18.00 mmHg. ASHOK D (continuity eq. Vmax): 0.9 cm??. AV Vmax, Caliper: 2.66 m/s. AV DVI: 0.23 Loop implant procedure note: DATE OF PROCEDURE: 04/12/24 PERFORMING PHYSICIAN: Dr Stan Simms RETORT FIRER: Dr. Jez Martin INDICATIONS FOR PROCEDURE: 1. SVT/AF surveillance ECG 04/12/2024: Normal sinus rhythm Normal ECG Cardiac catheterization 04/12/2024: Final Impressions: -Severe 3 V CAD CORONARY FINDINGS: LMCA - This vessel arises from the left coronary cusp and bifurcates into the left anterior descending and left circumflex coronary arteries. It is angiographically patent and without significant stenosis. LAD - There is 70% long segment stenosis in the mid LAD. There is a 90% lesion in the mid LAD. There is 99% stenosis in the distal LAD. First diagonal branch is a moderate sized vessel and has 90% stenosis at the ostium and 90% stenosis in the mid portion of the vessel. LCX - Mid Lcx has 80% stenosis. OM1 is a large size vessel and has an upper and lower branch. Thereis 90% stenosis in the proximal portion of the superior branch and a 95% stenosis in the proximal portion of the inferior branch. RCA - This arises from the right coronary cusp. It is a dominant vessel giving rise to a PDA and PLB branch. There is 75% stenosis in the proximal bend. There is 90% stenosis in the distal RCA and 90% stenosis in the proximal PDA. Echocardiogram 10/26/2023: CONCLUSION: 1. Normal ventricular systolic function. LVEF is calculated at 63%. 2. No pericardial effusion. 3. Mild biatrial dilatation. 4. Limited study performed for assessment of ventricular systolic function with no Doppler interrogation. Echocardiogram 10/14/2023: CONCLUSION: 1. Global left ventricular systolic function is difficult to assess but appears preserved; visually estimated ejection fraction is 60 to 65% 2. Unable to assess regional wall motion abnormalities with accuracy; consider contrast study for better delineation of endocardial borders 3. Normal right ventricular size and systolic function 4. The left atrium is dilated 5. Grade 2, moderate diastolic dysfunction 6. Mildly elevated right ventricular systolic pressure; RVSP 42 mmHg 7. Moderate to severe aortic valve stenosis; DVI of 0.22 is consistent with severe aortic stenosis 8. Anterior free space; trivial effusion versus fat pad Assessment/Plan Diagnoses and all orders for this visit: S/P TAVR (transcatheter aortic valve replacement) - ECG 12 lead; Future - amoxicillin (Amoxil) 500 mg tablet; Take 4 tablets (2,000 mg) by mouth 1 (one) time if needed (30-60 minutes prior to dental procedure.) for up to 1 dose. Primary hypertension - losartan (Cozaar) 25 mg tablet; Take 1 tablet (25 mg) by mouth at bedtime. Coronary artery disease involving augustine coronary artery of augustine heart without angina pectoris PAF (paroxysmal atrial fibrillation) (CMS/HCC) Status post insertion of drug eluting coronary artery stent PAD (peripheral artery disease) He is doing very well clinically after the TAVR procedure. His blood pressure is elevated and I will resume losartan 25 mg daily. I gave him a prescription for amoxicillin for endocarditis prophylaxis prior to dental procedures. One of his main issues at this point in time include adequate nutrition and physical therapy. I discussed this at length with him and his . He will have physical therapy starting soon. He has follow-up scheduled to obtain a 1 month post TAVR echocardiogram and to see me in follow-up at that time. During that visit depending on his overall physical condition, I can decide on referring him to cardiac rehab. Meanwhile continue clopidogrel and Eliquis therapy. He is in sinus rhythm by today's ECG. Follow up in 25 days (on 09/04/2024). Kimani Spring MD documented in this encounter Plan of Treatment Upcoming Encounters Date Type Department Care Team (Late st Contact Info) Description 08/31/2024 1:30 PM EDT Appointment [facility] Heart and Vascular Center Heart Station [address] [place] [phone] 09/04/2024 11:15 AM EDT Follow-Up [facility] Heart at [facility] [address] [place] [address] Kimani Spring MD [address] [facility] 1 [facility] [place] [address] 09/19/2024 3:30 PM EDT Consult [facility] Pulmonary [address] [place] [address] Paul Mayen MD [address] [place] [address] documented as of this encounter Results * ECG 12 lead (08/10/2024 3:28 PM EDT) Ventricular Rate 73 BPM GE MUSE Atrial Rate 73 BPM GE MUSE SC Interval 148 ms GE MUSE QRS DURATION 136 ms GE MUSE QT Interval 432 ms GE MUSE QTC CALCULATION(BAZE TT) 475 ms GE MUSE P [place] 59 degrees GE MUSE R-[place] 108 degrees GE MUSE T Wave [place] 13 degrees GE MUSE 08/10/2024 3:25 PM EDT 08/10/2024 6:15 PM EDT Impressions GE MUSE - 08/10/2024 6:15 PM EDT Normal sinus rhythm Right axis deviation Non-specific intra-ventricular conduction block Abnormal ECG When compared with ECG of 02-AUG-2024 14:42, QRS duration has increased T wave amplitude has increased in Lateral QT has lengthened Confirmed by Saloni SHABAZZ, SHIRA Forbes (57) on 08/10/2024 6:15:45 PM Narrative Procedure Note Shira Shabazz MD - 08/10/2024 IMPRESSION: Normal sinus rhythm Right axis deviation Non-specific intra-ventricular conduction block Abnormal ECG When compared with ECG of 02-AUG-2024 14:42, QRS duration has increased T wave amplitude has increased in Lateral QT has lengthened Confirmed by Saloni SHABAZZ SAMER J. (57) on 08/10/2024 6:15:45 PM Kimani Spring MD ECG ORDERABLES Final Result GE MUSE documented in this encounter Visit Diagnoses Diagnosis S/P TAVR (transcatheter aortic valve replacement)- Primary Primary hypertension Unspecified essential hypertension Coronary artery disease involving augustine coronary artery of augustine heart without angina pectoris PAF (paroxysmal atrial fibrillation) (CMS/HCC) Atrial fibrillation Status post insertion of drug eluting coronary artery stent PAD (peripheral artery disease) Unspecified peripheral vascular disease S/P TAVR (transcatheter aortic valve replacement) documented in this encounter Care Teams Wrapper Stemmer Hand Relationship Specialty Start Date End Date Shailesh Vinson DO [address] [facility] [place] [phone] PCP - General Family Medicine 08/04/23 Dr. Sheri Christiansen [address] [address] Water Resource Specialist Cardiology 08/18/23 documented as of this encounter
--- OUTSIDE RECORDS SUMMARY | 2024-08-10 14:00 | XMS_ITS | Encounter Summary ---
Author Organization [facility] Address [address] [place] [address] Care Team Providers Care Radio Tester Name Role Phone Shailesh Vinson DO Primary Care Provider [phone] Reason for Visit * Reason Comments Follow-up Follow Up S/P TAVR C arotid Cut Down Encounter Details Date Type Department Care Team (Late st Contact Info) Description 08/10/2024 2:00 PM EDT Follow-Up [facility] Heart and Vascular [facility] Center [address] [place] [phone] Lesly Marcial, WOOD BARKER [address] [place] [address] Hematoma of neck, sequela (Primary Dx); S/P TAVR (transcatheter aortic valve replacement) Social History Tobacco Use Types Packs/Day Years Used Date Smoking Tobacco: Former Cigarettes 2 40 1 958 - 1998 Smokeless Tobacco: Never Alcohol Use Standard Drinks/Week Comments Not Currently 3 (1 standard drink = 0.6 oz pur e alcohol) 4x week- vivian [facility] Utilities Answer Date Recorded In the past 12 months has e electric, gas, oil, or water company threatened to shut off services in your [...] any time in the past 12 m ont, were you homeless or living in a skilled nursing (including now)? No 08/02/2024 Hunger Vital Sign [...] AM EDT documented as of this encounter Functional Status documented as of this encounter Progress Notes * Lesly Marcial CNP - 08/10/2024 2:00 PM EDT Subjective Patient ID: Reynaldo Polanco is a 84 y.o. male who presents for Follow-up (Follow Up S/P TAVR Carotid Cut Down). HPI Patient recently underwent TAVR on 08/01/2024 with open transcarotid access. He was discharged home on 08/06/2024 in stable condition. He sustained a large right neck hematoma postoperatively, that improved during his hospital stay. The size of the hematoma appears to be slightly smaller, compared to hospital discharge. He has no new or worsening symptoms. No fever or chills. Denies dizziness or lightheadedness. No numbness, tingling, decreased appetite, or other new symptoms. He has been taking all of his medications daily as prescribed, including Plavix and apixaban. No signs or symptoms of bleeding. Review of Systems See HPI Objective There were no vitals taken for this visit. Physical Exam Constitutional: General: He is not in acute distress. Appearance: Normal appearance. He is not ill-appearing, toxic-appearing or diaphoretic. Neck: Comments: See skin assessment. The patient's neck is soft. Hematoma is noted. Trachea is midline. No crepitus to the neck. Cardiovascular: Rate and Rhythm: Normal rate and regular rhythm. Pulmonary: Effort: Pulmonary effort is normal. Breath sounds: Normal breath sounds. Skin: General: Skin is warm and dry. Capillary Refill: Capillary refill takes less than 2 seconds. Findings: Bruising present. Comments: Right carotid neck incision is well-approximated without redness or drainage. Moderate amount of bruising to the right neck. Moderate size right neck hematoma, underlying the carotid incision. The hematoma has decreased in size since hospital discharge. Neurological: General: No focal deficit present. Mental Status: He is alert and oriented to person, place, and time. Cranial Nerves: No cranial nerve deficit. Psychiatric: Mood and Affect: Mood normal. Behavior: Behavior normal. Assessment/Plan Diagnoses and all orders for this visit: Hematoma of neck, sequela S/P TAVR (transcatheter aortic valve replacement) Recent Results (from the past 36 hour(s)) ECG 12 lead Collection Time: 08/10/24 3:28 PM Result Value Ref Range Ventricular Rate 73 BPM Atrial Rate 73 BPM AR Interval 148 ms QRS DURATION 136 ms QT Interval 432 ms QTC CALCULATION(BAZETT) 475 ms P [place] 59 degrees R-[place] 108 degrees T Wave [place] 13 degrees Plan: - The right neck hematoma has slightly improved, compared to size at hospital discharge. Patient still has moderate amount of bruising, but stable. No underlying fluctuance or crepitus. The trachea is midline. His pain is controlled. No new or worsening symptoms. - Continue apixaban and clopidogrel and other medications per cardiology and primary teams - Patient cautioned on importance of calling to report any new symptoms such as fever, chills, increased pain to the right neck, numbness or tingling to the face or other new symptoms. documented in this encounter Plan of Treatment Upcoming Encounters Date Type Department Care Team (Late st Contact Info) Description 08/31/2024 1:30 PM EDT Appointment [facility] Heart and Vascular Center Heart Station [address] [place] [address] 09/04/2024 11:15 AM EDT Follow-Up [facility] Heart at [facility] [address] [place] [address] Kimani Spring MD [address] [facility] [address] [place] [phone] 09/19/2024 3:30 PM EDT Consult [facility] Pulmonary [address] [place] [place] [phone] Paul Mayen MD [address] [place], [place] [phone] documented as of this encounter Visit Diagnoses Diagnosis Hematoma of neck, sequela- Primary S/P TAVR (transcatheter aortic valve replacement) documented in this encounter Care Teams Radio Tester Relationship Specialty Start Date End Date Shailesh Vinson DO [address] [facility] [place] [address] PCP - General Family Medicine 08/04/23 Dr. Sheri Christiansen [address] [facility] [address] [place] [address] Tractor Trailer Driver Cardiology 08/18/23 documented as of this encounter
--- OUTSIDE RECORDS SUMMARY | 2024-08-10 15:20 | XMS_ITS | Encounter Summary ---
Author Organization [facility] Address [address] [place] [address] Care Team Providers Care Topographical Drafter Name Role Phone Shailesh Vinson DO Primary Care Provider [phone] Reason for Referral * (Routine) - Pending Review Specialty Diagnoses / Procedures Referred By Contac t Referred To Contact Diagnoses S/P TAVR (transcatheter aortic valve replacement) Procedures ECG 12 lead Kimani Spring MD [address] [place] [address] Phone: tel: fax: Referral ID Status Reason Start Date Expiration Date V isits Requested Visits Authorized [id number] Pending Review 08/10/2024 08/10/2025 1 1 Reason for Visit * (Routine) - Pending Review Specialty Diagnoses / Procedures Referred By Contac t Referred To Contact Diagnoses S/P TAVR (transcatheter aortic valve replacement) Procedures ECG 12 lead Kimani Spring MD [address] [facility] [address] [place] [address] Phone: tel: fax: Referral ID Status Reason Start Date Expiration Date V isits Requested Visits Authorized [id number] Pending Review 08/10/2024 08/10/2025 1 1 Encounter Details Date Type Department Care Team (Latest Contact Info) Description 08/10/2024 3:20 PM EDT - 08/10/2024 11:59 PM EDT Hospital Encounter [facility] Heart and Vascular Center Heart Station [address] [place] [phone] S/P TAVR (transcatheter aortic valve replacement) Discharge Disposition: Home or Self Care () Social History Tobacco Use Types Packs/Day Years Used Date Smoking Tobacco: Former Cigarettes 2 40 1 958 - 1997 Smokeless Tobacco: Never Alcohol Use Standard Drinks/Week Comments Not Currently 3 (1 standard drink = 0.6 oz pur e alcohol) 4x week- Prized [facility] Xerosities Answer Date Recorded In the past 12 [...] any time in the past 12 m [facility], were you homeless or living in a fci (including now)? No 08/02/2024 Hunger Vital Sign Answer Date Recorded Within the past 12 months, y ou worried that your food would run out before you got the money to buy more. Never true 05/28/20 25 Ran Out of Food in the Last Year Not on file 08/02/2024 Sex and Gender Information Value Date Recorded Sex Assigned at Male 07/07/2024 8:39 AM EDT Legal Sex Male 12:28 AM EDT Gender Identity Male 07/07/2024 8:39 AM EDT Sexual Orientation Heterosexual or Straight 04/2024 8:39 AM EDT documented as of this encounter Functional Status documented as of this encounter Medications at Time of Discharge amoxicillin (Amoxil) 500 mg tabletIndications: S/P TAVR (transcatheter aortic valve replacement) Take 4 tablets (2,000 mg) by mouth 1 (one) time if needed (30-60 minutes prior to dental procedure.) for up to 1 dose. 30 tablet 3 08/10/2024 apixaban (Eliquis) 2.5 mg tabletIndications: Paroxysmal atrial fibrillation (CMS/HCC) Take 1 tablet (2.5 mg) by mouth two times daily. 180 tablet 3 08/01/2024 6 clopidogrel (Plavix) 75 mg tabletIndications: Coronary artery disease involving afognak coronary artery of afognak heart without angina pectoris,Status post insertion of drug eluting coronary artery stent Take 1 tablet (75 mg) by mouth in the morning. 90 tablet 3 07/10/2024 6 ferrous sulfate 325 (65 Fe) MG tabletIndications: Chronic anemia Take 1 tablet (325 mg) by mouth with breakfast. 90 tablet 3 07/10/2024 6 folic acid (Folvite) 1 mg tabletIndications: Chronic anemia Take 1 tablet (1 mg) by mouth in the morning. 90 tablet 3 07/10/2024 6 losartan (Cozaar) 25 mg tabletIndications: Primary hypertension Take 1 tablet (25 mg) by mouth at bedtime. 90 tablet 3 08/10/2024 6 pravastatin (Pravachol) 40 mg tablet Take 40 mg by mouth at bedtime. 01/25/2022 documented as of this encounter Plan of Treatment Upcoming Encounters Date Type Department Care Team (Late st Contact Info) Description 08/31/2024 1:30 PM EDT Appointment [facility] Heart and Vascular Center Heart Station [address] [place] [address] 09/04/2024 11:15 AM EDT Follow-Up [facility] Heart at [facility] [address] [facility] [place] [address] Kimani Spring MD [address] [facility] [place] [phone] 09/19/2024 3:30 PM EDT Consult [facility] Pulmonary [address] [place] [address] Paul Mayen MD [address] [place], [place] [phone] documented as of this encounter Procedures Procedure Name Priority Date/Time Associated Diagnosis Comments ECG 12-LEAD Routine 08/10/2024 3:28 PM EDT S/P TAVR (transcatheter aortic valve replacement) documented in this encounter Results * ECG 12 lead (08/10/2024 3:28 PM EDT) [facility] Ventricular Rate 73 BPM GE MUSE Atrial Rate 73 BPM GE MUSE [place] Interval 148 ms GE MUSE QRS DURATION 136 ms GE MUSE QT Interval 432 ms GE MUSE QTC CALCULATION(BAZE TT) 475 ms GE MUSE P [place] 59 degrees GE MUSE R-[place] 108 degrees GE MUSE T Wave [place] 13 degrees GE MUSE 08/10/2024 3:25 PM EDT 08/10/2024 6:15 PM EDT Impressions GE MUSE - 08/10/2024 6:15 PM EDT Normal sinus rhythm Right axis deviation Non-specific intra-ventricular conduction block Abnormal ECG When compared with ECG of 02-AUG-2024 14:42, QRS duration has increased T wave amplitude has increased in Lateral QT has lengthened Confirmed by Saloni SHABAZZ, PONCHO Forbes (57) on 08/10/2024 6:15:45 PM Narrative Procedure Note Poncho Shabazz MD - 08/10/2024 IMPRESSION: Normal sinus rhythm Right axis deviation Non-specific intra-ventricular conduction block Abnormal ECG When compared with ECG of 02-AUG-2024 14:42, QRS duration has increased T wave amplitude has increased in Lateral QT has lengthened Confirmed by Saloni SHABAZZ, PONCHO Forbes (57) on 08/10/2024 6:15:45 PM us Kimani Spring MD ECG ORDERABLES Final Result [employer] documented in this encounter Visit Diagnoses Diagnosis S/P TAVR (transcatheter aortic valve replacement) documented in this encounter Care Teams Topographical Drafter Relationship Specialty Start Date End Date Shailesh Vinson DO [address] [place] [address] [place] [phone] PCP - General Family Medicine 08/04/23 Dr. Sheri Christiansen [address] [facility] [address] [place] [address] Bicycle Subassembler Cardiology 08/18/23 documented as of this encounter
--- OUTSIDE RECORDS SUMMARY | 2024-08-15 12:45 | XMS_ITS | Encounter Summary ---
Author Organization [facility] Address [address] [place] [address] Care Team Providers Care Compounding Assistant Name Role Phone Shailesh Vinson DO Primary Care Provider [phone] Encounter Details Date Type Department Care Team (Late st Contact Info) Description 08/15/2024 12:45 PM EDT Follow-Up [facility] Heart at [facility] [address] [place] [address] Jez Martin MD [address] [place] [phone] S/P TAVR (transcatheter aortic valve replacement) (Primary Dx) Social History Tobacco Use Types Packs/Day Years Used Date Smoking Tobacco: Former Cigarettes 2 40 1 958 - 1998 Smokeless Tobacco: Never Alcohol Use Standard Drinks/Week Comments Not Currently 3 (1 standard drink = 0.6 oz pur e alcohol) 4x week- vivian [facility] Utilities Answer Date Recorded In the past 12 months has [employer], gas, oil, or water [employer] threatened to shut off services in your [...] any time in the past 12 [facility], were you homeless or living in a m[facility]p (including now)? No 08/02/2024 Hunger Vital Sign [...] Sign Reading Time Taken Comments Blood Pressure 132/69 08/15/2024 1:24 PM EDT Pulse 78 08/15/2024 1:24 PM EDT Temperature - - Respiratory Rate - - Oxygen Saturation 99% 08/15/2024 1:24 PM EDT Inhaled Oxygen Concentration - - Weight 56.7 kg (125 lb) 08/15/2024 1:24 PM EDT Height 167.6 cm (5' 6 ) 08/15/2024 1:24 PM EDT Body Mass Index 20.18 08/15/2024 1:24 PM EDT documented in this encounter Progress Notes * Jez Martin MD - 08/15/2024 12:45 PM EDT Images from the original note were not included. [place] Electrophysiology Consult Note [place] Cardiology - [facility] Reason for visit: Afib 08/15/2024 He was noted to have multivessel CAD s/p PCI on 06/27/2024 fwho was turned down by CT surgery due tohigh risk and also noted to have aortic stenosis who subsequently underwent TAVR on 08/01/2024 has been also noted to have abdominal aortic aneurysm repair s/p EVAR in January 2022, peripheral arterial disease with left carotid artery stenosis s/p stenting in 2022. Given his peripheral artery disease his TAVR was done via right carotid surgical cutdown. He previously underwent a loop implant by me on 05/02/2024 Previously in the past he was noted to have postoperative atrial fibrillation when he underwent a cholecystectomy and partial liver resection in October 12, 2023. There were no loop transmissions since August 01, 2024 Patient is here today for A-Fib on his loop monitor. S/P Tavr x 2 weeks. Patient states I feel alright I guess, patient states he is fatigue and no energy, and RIVERA. Review of Systems Constitutional: Positive for malaise/fatigue. Cardiovascular: Positive for dyspnea on exertion. 03/21/24 Patient here for follow up stress test and 30 day event monitor. He denies chest pain, SOB, palpitations, lightheadedness/syncope, and bleeding on Eliquis. Pt had MPI which revealed fixed defect in apical area and EF 51%. 30d event monitor reveals multiple episodes of NSVT of 3-5 beats. He has no syncope. Prior HPI: Reynaldo Polanco is a 84 y.o. year old with past medical history of aortic aneurysm s/p EVAR, carotid artery disease s/p carotid stents @[facility], underwent a robotic assisted cholecystectomy with partial liver resection on 10/12/2023 @[facility]. Subsequently the patient was noted to have postoperative atrial fibrillation and was admitted to the [facility] and spontaneously converted to sinus rhythm. He was started on Eliquis 2.5 mg twice daily and since then placed on Holter monitor. He used to see [facility] cardiology, but hasn't been seen since 2021. He denies chestpain, palpitations, and bleeding on Eliquis. He states he'd like to come off Eliquis if possible. His last creatinine check was normal. The 3-day Holter monitor did not reveal any atrial fibrillation but episode of nonsustained ventricular tachycardia. Patient was asymptomatic during these episodes. 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 COLONOSCOPY CORONARY STENT PLACEMENT 06/27/2024 LEWIS CYSTOSCOPY FEMUR FRACTURE SURGERY Right KIDNEY STONE SURGERY TRANSURETHRAL RESECTION OF PROSTATE UPPER GASTROINTESTINAL ENDOSCOPY 05/30/2024 VARICOSE VEIN SURGERY Left SH: Social Determinants of Health Tobacco Use: Medium Risk (08/15/2024) Patient History Smoking Tobacco Use: Former Smokeless Tobacco Use: Never Passive Exposure: Not on file Alcohol Use: Not on file Financial Resource Strain: Low Risk (08/02/2024) Overall Financial Resource Strain (CARDIA) Difficulty of Paying Living Expenses: Not very hard Food Insecurity: No Food Insecurity (08/02/2024) Hunger Vital Sign Worried About Running Out of Food in the Last Year: Never true Ran Out of Food in the Last Year: Not on file Transportation Needs: No Transportation Needs (08/02/2024) Transportation Lack of Transportation (Medical): No Lack of Transportation (Non-Medical): Not on file Physical Activity: Not on file Stress: Not on file Social Connections: Not on file Intimate Partner Violence: Unknown (08/10/2024) Humiliation, Afraid, Rape, and Kick questionnaire Fear of Current or Ex-Partner: No Emotionally Abused: Not on file Physically Abused: Not on file Sexually Abused: Not on file Depression: Not at risk (08/10/2024) PHQ-2 PHQ-2 Score: 0 Housing Stability: Low Risk (08/02/2024) Housing Stability Vital Sign Unable to Pay for Housing in the Last Year: No Number of Times Moved in the Last Year: Not on file Homeless in the Last Year: No Utilities: Not At Risk (08/02/2024) [facility] Utilities Threatened with loss of utilities: No Health Literacy: Not on file Allergies: Allergies Allergen Reactions Larry Inhibitors Hives and Unknown Other Reaction(s): Unknown Gadolinium-Containing Contrast Media Itching and Unknown Iodinated Contrast Media Hives Other Reaction(s): hives Iodine Unknown Tetanus And Diphtheria Toxoids Unknown Tetanus Immune Globulin Other Tetanus Vaccines And Toxoid Unknown and Other Weight: 56.7kg Visit Vitals BP 132/69 (BP Location: Right arm, Patient Position: Sitting) Pulse 78 Ht 1.676 m (5' 6 ) Wt 56.7 kg (125 lb) SpO2 99% BMI 20.18 kg/m?? Smoking Status Former BSA 1.62 m?? Meds: Current Outpatient Medications on File Prior to Visit Medication Sig Dispense Refill apixaban (Eliquis) 2.5 mg tablet Take 1 tablet (2.5 mg) by mouth two times daily. 180 tablet 3 clopidogrel (Plavix) 75 mg tablet Take 1 tablet (75 mg) by mouth in the morning. 90 tablet 3 ferrous sulfate 325 (65 Fe) MG tablet Take 1 tablet (325 mg) by mouth with breakfast. 90 tablet 3 folic acid (Folvite) 1 mg tablet Take 1 tablet (1 mg) by mouth in the morning. 90 tablet 3 losartan (Cozaar) 25 mg tablet Take 1 tablet (25 mg) by mouth at bedtime. 90 tablet 3 pravastatin (Pravachol) 40 mg tablet Take 40 mg by mouth at bedtime. amoxicillin (Amoxil) 500 mg tablet Take 4 tablets (2,000 mg) by mouth 1 (one) time if needed (30-60minutes prior to dental procedure.) for up to 1 dose. (Patient not taking: Reported on 08/15/2024) 30 tablet 3 [] ciprofloxacin (Cipro) 500 mg tablet Take 1 tablet (500 mg) by mouth two times daily for 2days. (Patient not taking: Reported on 08/10/2024) 4 tablet 0 No current facility-administered medications on file prior to visit. ROS: Review of Systems Cardiovascular: Positive for dyspnea on exertion. All other systems reviewed and are negative. Physical Exam: Physical Exam Constitutional: Appearance: He is well-developed. [...] Behavior: Behavior is cooperative. Judgment: Judgment normal. Labs: @LABRESULTS@ Lab Results Component Value Date HDL 23 08/03/2024 LDL CALC 30 08/03/2024 TRIGLYCERIDES 165 (H) 08/03/2024 EKG: Encounter Date: 08/10/24 ECG 12 lead Result Value Ventricular Rate 73 Atrial Rate 73 DE Interval 148 QRS DURATION 136 QT Interval 432 QTC CALCULATION(BAZETT) 475 P [place] 59 R-[place] 108 T Wave [place] 13 Impression Normal sinus rhythm Right axis deviation Non-specific intra-ventricular conduction block Abnormal ECG When compared with ECG of 02-AUG-2024 14:42, QRS duration has increased T wave amplitude has increased in Lateral QT has lengthened Confirmed by Saloni SHAABZZ, PONCHO Forbes ([id number]) on 08/10/2024 6:15:45 PM Echo: 10/26/23 Stress test: 01/28/24 Coronary angiogram: @CATH@ Diagnostic Imaging: Assessment and Plan: -Postop atrial fibrillation with CAHDVSC acore of 4. -Multivessel CAD s/p PCI -Aortic stenosis s/p TAVR -Nonsustained ventricular tachycardia -Aortic aneurysm s/p EVAR -Carotid artery stenosis status post stent Currently patient is in sinus rhythm and the last loop transmission was in August 01, 2024. I have encouraged the patient to call by [employer] and set the device so that he can transmit again. I have also encouraged him to be more active to see how he feels once his CAD and aortic valve stenosis has been corrected. Will continue to follow up based on the event seen on loop monitor Jez Martin MD Cardiac Electrophysiology [facility] documented in this encounter Plan of Treatment Upcoming Encounters Date Type Department Care Team (Late st Contact Info) Description 08/31/2024 1:30 PM EDT Appointment [facility] [address] [place] [phone] 09/04/2024 11:15 AM EDT Follow-Up [facility] Heart at [facility] [address] [place] [address] Kimani Spring MD [address] [facility] [place] [phone] 09/19/2024 3:30 PM EDT Consult [facility] [address] [place] [phone] Paul Mayen MD [address] [place], [place] [phone] documented as of this encounter Visit Diagnoses Diagnosis S/P TAVR (transcatheter aortic valve replacement)- Primary documented in this encounter Care Teams Compounding Assistant Relationship Specialty Start Date End Date Shailesh Vinson DO [address] [place] [address] [place] [address] PCP - General Family Medicine 08/04/23 Dr. Sheri Christiansen [address] [place] [address] Chair Pad Maker Cardiology 08/18/23 documented as of this encounter
--- OUTSIDE RECORDS SUMMARY | 2024-08-22 09:38 | XMS_ITS | Encounter Summary ---
Author Organization [facility] Address [id number] [address] [place] [address] Care Team Providers Care Adzing And Boring Machine Feeder Name Role Phone Shailesh Vinson DO Primary Care Provider [phone] Encounter Details Date Type Department Care Team (Late st Contact Info) Description 05/08/2022 Orders Only [facility] [address] [place] [phone] Barbara Reynaga RN Social History Tobacco Use Types Packs/Day Years Used Date Smoking Tobacco: Former Cigarettes Smokeless Tobacco: Never Alcohol Use Standard Drinks/Week Comments Not Currently 0 (1 standard drink = 0.6 oz pur e alcohol) Sex and Gender Information Value Date Recorded Sex Assigned at Not on file Legal Sex Male 7:25 PM EDT Gender Identity Not on file Sexual Orientation Not on file documented as of this encounter Plan of Treatment Not on file documented as of this encounter Goals Goal Patient Goal Type Associated Problems Recent Progress Patient-Stated? Author Safe discharge General Yes Yane Bradford, SHAREE Note: Evaluation of progress towards goal: Patient typically lives at home independent, but had an IM nailing done today and may need some rehab post-discharge. Patient is waiting for PT/OT evaluation, but if SNF is recommended, he would appreciate a referral sent to [facility] [place]. documented as of this encounter Visit Diagnoses Not on filedocumented in this encounter Care Teams Adzing And Boring Machine Feeder Relationship Specialty Start Date End Date Shailesh Vinson DO [address] [place] [id number] PCP - General Internal Medicine 10/26/21 documented as of this encounter
--- OUTSIDE RECORDS SUMMARY | 2024-08-22 09:38 | XMS_ITS | Encounter Summary ---
Author Organization [employer] Address [id number] [address] [place] [address] Care Team Providers Care Fire Protection Inspector Name Role Phone Shailesh Vinson Primary Care Provider [phone] Encounter Details Date Type Department Care Team (Late st Contact Info) Description 02/03/2022 Orders Only [facility] [address] [place] [address] Barbara Reynaga RN Social History Tobacco Use [...] on file Sexual Orientation Not on file COVID-19 Exposure Response Date Recorded In the last month, have you been in contact with someone who was confirmed or suspected to have Coronavirus / COVID-19? No / Unsure 01/21/2022 10:43 AM EST documented as of this encounter Plan of [...] he would appreciate a referral sent to [facility]. documented as of this encounter Visit Diagnoses Not on filedocumented in this encounter Care Teams Fire Protection Inspector Relationship Specialty Start Date End Date Shailesh Vinson DO [address] [place] [address] PCP - General Internal Medicine 10/26/21 documented as of this encounter
--- OUTSIDE RECORDS SUMMARY | 2024-08-22 09:38 | XMS_ITS | Encounter Summary ---
Author Organization [facility] Address [id number] [address] [place] [address] Care Team Providers Care Sap Basis Administrator Name Role Phone Shailesh Vinson DO Primary Care Provider [phone] Encounter Details Date Type Department Care Team (Late st Contact Info) Description 04/29/2022 Orders Only [facility] [address] [place] [phone] Barbara Reynaga RN Social History Tobacco Use [...] appreciate a referral sent to [facility] [place]. documented as of this encounter Visit Diagnoses Not on filedocumented in this encounter Care Teams Sap Basis Administrator Relationship Specialty Start Date End Date Shailesh Vinson DO [address] [place] [address] PCP - General Internal Medicine 10/26/21 documented as of this encounter
--- OUTSIDE RECORDS SUMMARY | 2024-08-22 09:38 | XMS_ITS | Encounter Summary ---
Author Organization [facility] Address [address] [place] [address] Care Team Providers Care Director Of Aviation Name Role Phone Shailesh Vinson DO Primary Care Provider [phone] Encounter Details Date Type Department Care Team (Late st Contact Info) Description 07/27/[address] [facility] [address] [facility] [address] [place] [address] Jez Vigil DO [address] [place] [address] Social History Tobacco Use Types Packs/Day Years Used Date Smoking Tobacco: Never Smokeless Tobacco: Never Alcohol Use Standard Drinks/Week Comments Yes 0 (1 standard drink = 0.6 oz pur e alcohol) Sex and Gender Information Value Date Recorded Sex Assigned at Not on file Legal Sex Male 7:14 PM EDT Gender Identity Not on file Sexual Orientation Not on file documented as of this encounter Plan of Treatment Not on file documented as of this encounter Procedures Procedure Name Priority Date/Time Associated Diagnosis Comments US RUQ Routine 07/27/2023 2:35 PM EDT documented in this encounter Results * US RUQ (07/27/2023 2:35 PM EDT) Anatomical Region Laterality Modality Abdomen Ultrasound us Jez Vigil DO IMG US PROCEDURES Final Result documented in this encounter Visit Diagnoses Not on filedocumented in this encounter Care Teams Director Of Aviation Relationship Specialty Start Date End Date Shailesh Vinson DO PCP - General Internal Medicine 07/08/23 documented as of this encounter
--- OUTSIDE RECORDS SUMMARY | 2024-08-22 09:38 | XMS_ITS | Clinical Summary ---
Author Organization [facility] Address [address] [place] [address] Care Team Providers Care Information Technology Account Manager Name Role Phone Shailesh Vinson Primary Care Provider [phone] Allergies Active Allergy Reactions Criticality Noted Date Comments Larry Inhibitors 07/27/2023 Other Reaction(s): Unknown Gadolinium Derivatives Itching 05/09/2015 Iodinated Contrast Media 07/27/2023 Other Reaction(s): hives Tetanus Toxoids 07/27/2023 Other Reaction(s): Unknown Medications carvedilol (Coreg) 25 MG tablet 07/24/2023 Active pravastatin (Pravachol) 40 MG tablet 07/23/2023 Active isosorbide mononitrate ER (Imdur) 30 MG 24 hr tablet Take 30 mg by mouth Daily 06/15/2023 Active losartan (Cozaar) 50 MG tablet Take 50 mg by mouth in the morning and 50 mg before bedtime. 06/28/2023 Active [facility] D3 25 MCG (1000 UT) capsule TAKE 1 CAPSULE BY MOUTH IN THE MORNING AND ONE IN THE EVENING WITH MEALS 12/06/2022 Active nitroglycerin (Nitrostat) 0.[address] 0.3 mg under the tongue Active aspirin 81 MG EC tablet Take 81 mg by mouth in the morning. 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/27/2023 Right upper quadrant pain 07/27/2023 Preop cardiovascular exam 12/01/2021 Closed nondisplaced fracture of sternal end of right clavicle 11/14/2021 Femur fracture 10/26/2021 Family History Medical History Relation Name Comments heart Mother Relation Name Status Comments Brother 6 Father Mother Sister 4 Social History Tobacco Use Types Packs/Day Years Used Date Smoking Tobacco: Never Smokeless Tobacco: Never Tobacco Cessation:Counseling Given: Not Answered Alcohol Use Standard Drinks/Week Comments Yes 0 (1 standard drink = 0.6 oz pur e alcohol) Sex and Gender Information Value Date Recorded Sex Assigned at Not on file Legal Sex Male 7:14 PM EDT Gender Identity Not on file Sexual Orientation Not on file Last Filed Vital Signs Vital Sign Reading Time Taken Comments Blood Pressure 122/64 07/27/2023 2:06 PM EDT Pulse - - Temperature - - Respiratory Rate - - Oxygen Saturation - - Inhaled Oxygen Concentration - - Weight 71.7 kg (158 lb) 07/27/2023 2:06 PM EDT Height 167.6 cm (5' 6 ) 07/27/2023 2:06 PM EDT Body Mass Index 25.5 07/27/2023 2:06 PM EDT Plan of Treatment Health Maintenance Due Date Last Done Comments Pneumococcal Vaccine: 65+ Years (1 of - PCV) 993 Influenza Vaccine (Season Ended) 2024 Insurance MEDICARE [employer] [place] [id number] Care Teams Information Technology Account Manager Relationship Specialty Start Date End Date Shailesh Vinson DO PCP - General Internal Medicine 07/08/23
--- OUTSIDE RECORDS SUMMARY | 2024-08-22 09:38 | XMS_ITS | Clinical Summary ---
Author Organization [facility] tem Address [id number] [address] [place] [address] Care Team Providers Care Senior Accountant Name Role Phone KarelShailesh Caleb AMADOR Primary Care Provider [phone] Allergies Active Allergy Reactions Criticality Noted Date Comments Larry Inhibitors 10/26/2021 Gadolinium-Containing Contrast Media Itching 05/09/2015 Iodinated Contrast Media 10/26/2021 Iodine 10/26/2021 Tetanus And Diphtheria Toxoids 10/26 Medications isosorbide mononitrate (IMDUR) 30 mg 24 hr tablet Take 1 tablet (30 mg total) by mouth daily. Hold for systolic blood pressures less than 100. 10/30/19 22 Active acetaminophen (TYLENOL EXTRA STRENGTH) 500 mg tablet Take 2 tablets (1,000 mg total) by mouth every 6 (six) hours as needed for pain (For mild pain 1-3. Do not exceed more than 4 g Tylenol (acetaminophen ) in 24 hours.). 30 tablet 10/30/19 22 Active losartan (COZAAR) 25 mg tablet Take 1 tablet (25 mg total) by mouth in the morning. Active carvediloL (COREG) 12.5 mg tablet Take 0.5 tablets (6.25 mg total) by mouth in the morning and 0.5 tablets (6.25 mg total) in the evening. Take with meals. Active aspirin 325 mg buffered tablet Take 81 mg by mouth in the morning. Active calcium citrate (CALCITRATE) 200 mg (950 mg) tabletIndications:Morenita sed nondisplaced intertrochanteric fracture of right femur with routine healing, subsequent encounter Take 2 tablets (400 mg total) by mouth 3 (three) times a day. 180 tablet 3 12/16/19 Active Additional Information Patient taking differently:2 tablet oral2 times daily, Reported on 02/12/2022 pravastatin (PRAVACHOL) 40 mg tablet daily. 01/26/20 Active aspirin 81 mg Take 1 tablet (81 mg total) by mouth in the morning. Active polycarbophil (FIBERCON) 625 mg tablet Take 1 tablet (625 mg total) by mouth in the morning. Active cholecalciferol, vitamin D3, 25 mcg (1,000 unit) capsuleIndications:Cl osed nondisplaced intertrochanteric fracture of right femur with routine healing, subsequent encounter TAKE 1 CAPSULE BY MOUTH IN THE MORNING AND 1 IN THE EVENING WITH MEALS 60 capsule 6 08/22/19 23 Active Active Problems Problem Noted Date Diagnosed Date Preop cardiovascular exam 12/01/2021 Closed nondisplaced fracture of sternal end of right clavicle 11/14/2021 Femur fracture 10/26/2021 AAA (abdominal aortic aneurysm) Nonrheumatic aortic (valve) stenosis Immunizations No known immunizations Social History Tobacco Use Types Packs/Day Years Used Date Smoking Tobacco: Former Cigarettes Smokeless Tobacco: Never Tobacco Cessation:Counseling Given: Not [...] Sign Reading Time Taken Comments Blood Pressure 130/70 12/01/2021 1:10 PM EDT Pulse 65 12/01/2021 1:10 PM EDT Temperature 36.3 C (97.4 F) 05/14/2022 10:04 AM EST Respiratory Rate 17 10/30/2021 10:51 AM EDT Oxygen Saturation 99% 12/01/2021 1:10 PM EDT Inhaled Oxygen Concentration - - Weight 63.5 kg (140 lb) 05/14/2022 10:04 AM EST Height 167.6 cm (5' 6 ) 05/14/2022 10:04 AM EST Body Mass Index 22.6 05/14/2022 10:04 AM EST Plan of Treatment Health Maintenance Due Date Last Done Comments Depression Screening 1952 Tobacco Screening 1952 DTaP,Tdap and Td Vaccines (1 - Tdap) 1961 Zoster (Shingles) Vaccine (1 of 2) 1992 Fall Risk Screening 06/10/2007 COVID-19 Vaccine (2 - season) 11/07/202310/2020 Influenza Vaccine 11/06/2024 Goals Goal Patient Goal Type Associated Problems Recent Progress Patient-Stated? Author Safe discharge General Yes Yane Bradford, RN Note: Evaluation of progress towards goal: Patient typically lives at home independent, but had an IM nailing done today and may need some rehab post-discharge. Patient is waiting for PT/OT evaluation, but if SNF is recommended, he would appreciate a referral sent to [facility]. Medical Devices Implanted Type Area Cottage Attendant Device Identifier Shelf Expiration Date Model / Serial / Lot Nail Im 18cm 11.5mm 125d Shrt Rtrgd Trgn Intertan Ti - [id number] Implanted:Qty: 1 on 10/27/2021 by Robert Coe MD at [facility] Nail [employer] 06/15/2031 [id number] Kit Scr 85mm 11mm 7mm Hip Troch Lg Cmpr Intgr Intlk 80mm - [id number] Implanted:Qty: 1 on 10/27/2021 by Robert Coe MD at [facility] Screw [employer] 02/25/2031 [id number] Screw Bn 32.5mm 5mm Lp Intnl Hex Fem Trgn Im Nl Sys - [id number] Implanted:Qty: 1 on 10/27/2021 by Robert Coe MD at [facility] Scre[employer] 11/26/2029 [id number] Insurance MEDICARE COMMERCIAL Advance Directives * Full Code (Latest Code Status on File) Date Activated Date Inactivated Comments 10/26/2021 10:24 PM 10/30/2021 1:51 PM Care Teams Senior Accountant Relationship Specialty Start Date End Date Shailesh Vinson DO [address] [place] [address] PCP - General Internal Medicine 10/26/21
--- OUTSIDE RECORDS SUMMARY | 2024-08-22 09:38 | XMS_ITS | Encounter Summary ---
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 Name Role Phone Shailesh Vinson DO Primary Care Provider [phone] Encounter Details Date Type Department Care Team (Late st Contact Info) Description 07/18/2024 Orders Only [facility] [address] [place] [address] Jez Martin MD [address] [place] [address] Social History Tobacco Use Types Packs/Day Years Used Date Smoking Tobacco: Former Cigarettes 2 40 1 958 - 1998 Smokeless Tobacco: Never Alcohol Use Standard Drinks/Week Comments Not Currently 3 (1 standard drink = 0.6 oz pur e alcohol) 4x week- Known [facility] Utilities Answer Date Recorded In the past 12 months has [employer], gas, oil, or water oLyfe threatened to shut off services in your home? No 06/27/2024 Humiliation, Afraid, Rape, and Kick questionnair e Answer Date Recorded Within the last year, have y ou been afraid of your partner or ex-partner? No 06/27/2024 Emotionally Abused Not on file 06/27/2024 Physically Abused Not on file 06/27/2024 Sexually Abused Not on file 06/27/2024 Overall Financial Resource Strain (CARDIA) Answe r Date Recorded How hard is it for you to pa y for the very basics like food, housing, medical care, and heating? Not very hard 06/27/2024 PHQ-2 Answer Date Recorded Patient Health Questionnaire-2 Score 0 04/18/2024 Transportation Answer Date Recorded In the past 12 months, has l ack of transportation kept you from medical appointments or from getting medications? No 06/27/2024 Lack of Transportation (Non-Medical) Not on file 06/27/2024 Housing Stability Vital Sign Answer Brent e Recorded In the last 12 months, was t here a time when you were not able to pay the mortgage or rent on time? No 06/27/2024 Number of Times Moved in the Last Year Not on fi le 06/27/2024 At any time in the past 12 m [facility], were you homeless or living in a custodial (including now)? No 06/27/2024 Hunger Vital Sign Answer Date Recorded Within the past 12 months, y ou worried that your food would run out before you got the money to buy more. Never true 06/28/19 25 Ran Out of Food in the Last Year Not on file 06/27/2024 Sex and Gender Information Value Date Recorded Sex Assigned at Male 07/07/2024 8:39 AM EDT Legal Sex Male 12:28 AM EDT Gender Identity Male 07/07/2024 8:39 AM EDT Sexual Orientation Heterosexual or Straight 04/2024 8:39 AM EDT documented as of this encounter Plan of Treatment Upcoming Encounters Date Type Department Care Team (Late st Contact Info) Description 08/31/2024 1:30 PM EDT Appointment [facility] Heart [facility] Vascular Center Heart Station [address] [place] [phone] 09/04/2024 11:15 AM EDT Follow-Up [facility] Heart at [facility] [address] [place] [address] Kimani Spring MD [address] [place] [address] 09/19/2024 3:30 PM EDT [facility] [address] [place] [id number] Paul Mayen MD [address] [place] [address] documented as of this encounter Procedures Procedure Name Priority Date/Time Associated Diagnosis Comments CARDIAC DEVICE CHECK - REMOTE - LOOP RECORDER (ILR) Routine 07/18/2024 12:00 AM EDT documented in this encounter Results * Cardiac device check - Remote loop recorder (ILR) (07/18/2024 12:00 AM EDT) Anatomical Region Laterality Modality Other 07/18/2024 Jez Martin MD CV IMPLANTABLE CARDIAC DEVICE MS OCEDURES Final Result documented in this encounter Visit Diagnoses Not on filedocumented in this encounter Care Teams Strap Machine Operator Relationship Specialty Start Date End Date Shailesh Vinson DO [address] [facility] [place] [address] [place] [address] PCP - General Family Medicine 08/04/23 Dr. Sheri Christiansen [address] [facility] [address] [place] [address] [facility] 08/18/23 documented as of this encounter
--- OUTSIDE RECORDS SUMMARY | 2024-08-22 09:39 | XMS_ITS | Clinical Summary ---
Author Organization [facility] Address [address] [place] [address] Care Team Providers Care Legal Investigator Name Role Phone Shailesh Vinson DO Primary Care Provider [phone] Allergies Active Allergy Reactions Criticality Noted Date Comments Larry Inhibitors Hives,Unknown 05/09/2015 Other Reaction(s): Unknown Gadolinium-Containing Contrast Media Itching,Unknown 05/09/2015 Iodinated Contrast Media Hives 10/26/2021 Other Reaction(s): hives Iodine Unknown 10/26/2021 Tetanus And Diphtheria Toxoids Unknown 10/26/2021 Tetanus Immune Globulin Other 07/05/2023 Tetanus Vaccines And Toxoid Unknown,Other 05/16/2015 Medications pravastatin (Pravachol) 40 mg tablet Take 40 mg by mouth at bedtime. 01/26/20 22 Active folic acid (Folvite) 1 mg tabletIndication s:Chronic anemia Take 1 tablet (1 mg) by mouth in the morning. 90 tablet 3 07/11/19 25 026 Active clopidogrel (Plavix) 75 mg tabletIndication s:Coronary artery disease involving false pass coronary artery of false pass heart without angina pectoris,Status post insertion of drug eluting coronary artery stent Take 1 tablet (75 mg) by mouth in the morning. 90 tablet 3 07/11/19 25 026 Active ferrous sulfate 325 (65 Fe) MG tabletIndication s:Chronic anemia Take 1 tablet (325 mg) by mouth with breakfast. 90 tablet 3 07/11/19 25 026 Active apixaban (Eliquis) 2.5 mg tabletIndication s:Paroxysmal atrial fibrillation (CMS/HCC) Take 1 tablet (2.5 mg) by mouth two times daily. 180 tablet 3 08/02/19 25 026 Active losartan (Cozaar) 25 mg tabletIndication s:Primary hypertension Take 1 tablet (25 mg) by mouth at bedtime. 90 tablet 3 08/11/19 25 026 Active amoxicillin (Amoxil) 500 mg tabletIndication s:S/P TAVR (transcatheter aortic valve replacement) Take 4 tablets (2,000 mg) by mouth 1 (one) time if needed (30-60 minutes prior to dental procedure.) for up to 1 dose. 30 tablet 3 08/11/19 25 Active Additional Information Patient not taking.Reported on 08/15/2024 carvedilol (Coreg) 25 mg tablet Take 1 tablet by mouth with breakfast and with evening meal. 07/24/19 24 025 Discontinu ed(Stop Taking at Discharge) losartan (Cozaar) 50 mg tablet Take 25 mg by mouth at bedtime. 06/28/19 24 025 Discontinu ed(Stop Taking at Discharge) apixaban (Eliquis) 2.5 mg tabletIndication s:Paroxysmal atrial fibrillation (CMS/HCC) Take 1 tablet (2.5 mg) by mouth two times daily. Do not start before July 06, 2024. 60 tablet 07/07/19 25 025 Discontinu ed(Reorder ) aspirin 81 mg EC tabletIndication s:Triple vessel coronary artery disease Take 1 tablet (81 mg) by mouth in the morning. 30 tablet 11 07/01/19 25 025 Discontinu ed(Stop Taking at Discharge) predniSONE (Deltasone) 20 mg tabletIndication s:Contrast media allergy Take 3 tablets at 6 PM and at midnight the day before the procedure and at 6 AM the day of the procedure. 9 tablet 07/11/19 25 025 Discontinu ed(Reorder ) predniSONE (Deltasone) 20 mg tabletIndication s:Contrast media allergy Take 3 tablets at 6 PM and at midnight the day before the procedure and at 6 AM the day of the procedure. 9 tablet 07/27/19 25 025 Discontinu ed(Stop Taking at Discharge) ciprofloxacin (Cipro) 500 mg tabletIndication s:Acute cystitis without hematuria Take 1 tablet (500 mg) by mouth two times daily for 2 days. 4 tablet 08/07/19 25 025 Additional Information Patient not taking.Reported on 08/10/2024 Active Problems Problem Noted Date Diagnosed Date Slow transit constipation 08/04/2024 Assessment & Plan (08/05/2024 11:16 AM EDT): Continue daily MiraLAX Assessment & Plan (08/04/2024 3:14 PM EDT): Continue daily MiraLAX Coronary artery disease invo lving false pass coronary artery of false pass heart without angina pectoris 08/04/2024 Assessment & Plan (08/05/2024 11:16 AM EDT): S/p PCI mid LAD, OM1, balloon angioplasty of OM 2 Continue Plavix Assessment & Plan (08/04/2024 3:22 PM EDT): S/p PCI mid LAD, OM1, balloon angioplasty of OM 2 Continue Plavix Abdominal aortic aneurysm (AAA) 08/04/2024 Assessment & Plan (08/05/2024 11:16 AM EDT): S/p EVAR January 2022 Assessment & Plan (08/04/2024 3:22 PM EDT): S/p EVAR January 2022 Fever 08/03/2024 Assessment & Plan (08/05/2024 11:16 AM EDT): Blood and urine cultures pending Leukocytosis Resolved. Monitor for any ongoing fever. Assessment & Plan (08/04/2024 3:14 PM EDT): Blood and urine cultures pending Leukocytosis is improving. Assessment & Plan (08/03/2024 5:18 PM EDT): With leukocytosis UA with more than 20 RBC and WBC 11-20 and occasional epithelial cells suggestive of UTI had blood cultures done chest x-ray done which showed chronic granulomatous infiltrates ceftriaxone started if increased respiratory symptoms consider repeating CT scan of the chest patient had CTA chest done on 05/18/2024 showing chronic granulomatous disease disease Urinary tract infection without hematuria 2024 Assessment & Plan (08/05/2024 11:16 AM EDT): Urinalysis positive for UTI Urine culture pending Treat empirically with ceftriaxone Assessment & Plan (08/04/2024 3:14 PM EDT): Urinalysis positive for UTI Urine culture pending Treat empirically with ceftriaxone Assessment & Plan (08/03/2024 5:18 PM EDT): As above Awaiting blood cultures and urine cultures will continue antibiotic for now 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 Patient denies any cough/shortness of breath Assessment & Plan (08/04/2024 3:14 PM EDT): X-ray done showed chronic granulomatous infiltrates. Patient denies any cough/shortness of breath Assessment & Plan (08/03/2024 5:18 PM EDT): As above Aortic stenosis, severe 07/20/2024 Assessment & Plan (08/05/2024 11:16 AM EDT): S/p TAVR 08/01 Assessment & Plan (08/04/2024 3:22 PM EDT): S/p TAVR 08/01 Assessment & Plan (08/03/2024 5:18 PM EDT): Post transcatheter aortic valve replacement echo done a day back. Showed bioprosthetic valve appears well-seated in the aortic position with normal Doppler flow no aortic valve regurgitation there was trivial perivalvular regurgitation patient on Plavix, Eliquis is on hold because of small to moderate hematoma at right jugular access site continue follow-up hi how are you with cardiology going home tomorrow Hemoptysis 06/29/2024 Assessment & Plan (06/29/2024 4:35 PM EDT): -Pulmonology following for hemoptysis -Multi-disciplinary discussion with pulmonology and cardiology and decision was made to resume aspirin and plavix for now - Bronchoscopy found tracheal abrasion, but no significant bleed - Pulmonology recommends to hold eliquis, but okay with continuing aspirin and plavix Abrasion of trachea 06/29/2024 Triple vessel coronary artery disease 06/27/2024 Hx of ventricular tachycardia 06/27/2024 Assessment & Plan (06/29/2024 4:35 PM EDT): - Continue home meds Assessment & Plan (06/28/2024 5:18 PM EDT): - Continue home meds Assessment & Plan (06/27/2024 7:43 PM EDT): - Continue home meds S/P cholecystectomy 06/27/2024 Assessment & Plan (06/29/2024 4:35 PM EDT): - Patient with recent cholecystectomy and partial liver resection, continue outpatient follow-up with the general surgery Assessment & Plan (06/28/2024 5:18 PM EDT): - Patient with recent cholecystectomy and partial liver resection, continue outpatient follow-up with the general surgery Assessment & Plan (06/27/2024 7:43 PM EDT): - Patient with recent cholecystectomy and partial liver resection, continue outpatient follow-up with the general surgery Hx of carotid stenosis 06/27/2024 Assessment & Plan (06/29/2024 4:35 PM EDT): - Status post stenting Assessment & Plan (06/28/2024 5:18 PM EDT): - Status post stenting Assessment & Plan (06/27/2024 7:43 PM EDT): - Status post stenting Coronary artery disease invo lving false pass coronary artery of false pass heart with angina pectoris 06/20/2024 Assessment & Plan (06/29/2024 4:35 PM EDT): -Results of cardiac cath as noted in H&P -TAVR will be scheduled for a later date Assessment & Plan (06/28/2024 5:18 PM EDT): -Results of cardiac cath as noted in H&P -TAVR will be scheduled for a later date -Pulmonology following for hemoptysis -Multi-disciplinary discussion with pulmonology and cardiology and decision was made to resume aspirin and plavix for now. The risk of stent rethrombosis was too great Assessment & Plan (06/27/2024 10:51 PM EDT): -Results of cardiac cath as noted above in HPI -Patient will be started on ASA and Plavix along with Eliquis -TAVR will be scheduled for a later date -Per report from cardiology, patient with mild hemoptysis after GEORGE and they have requested pulmonology input for a.m. -Recommend holding ASA and plavix until hemoptysis has been investigated further Abnormal stress test 03/21/2024 Acute on chronic heart failu re with preserved ejection fraction (HFpEF) 01/18/2024 Paroxysmal atrial fibrillation 01/18/2024 Assessment & Plan (08/05/2024 11:16 AM EDT): Rate controlled Continue Eliquis 2.5 mg twice a day Assessment & Plan (08/04/2024 3:14 PM EDT): Rate controlled Resume Eliquis 2.5 mg twice a day Assessment & Plan (08/03/2024 5:18 PM EDT): Telemetry rate control as infiltrate above Eliquis to be resumed once hematoma stabilized Assessment & Plan (06/29/2024 4:35 PM EDT): - Loop recorder in place - Holding eliquis per pulmonology recommendation. 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 08/19/[address] scan 08/11/2023 ASHD (arteriosclerotic heart disease) 08/11/2023 Benign prostatic hyperplasia with lower urinary tract symptoms 08/11/2023 Contrast media allergy 08/11/2023 Dysuria 08/11/2023 Foreign body in bladder 08/11/2023 Hypercholesterolemia 08/11/2023 Hyperlipidemia 08/11/2023 Assessment & Plan (08/05/2024 11:16 AM EDT): Continue pravastatin Assessment & Plan (08/04/2024 3:14 PM EDT): Continue pravastatin Assessment & Plan (08/03/2024 5:18 PM EDT): Diet statin IFG (impaired fasting glucose) 08/11/2023 ED (erectile dysfunction) 08/11/2023 Impotence 08/11/2023 Kidney stones 08/11/2023 Left carotid stenosis 08/11/2023 Asymptomatic microscopic hematuria 08/11/2023 Gross hematuria 08/11/2023 Mixed incontinence 08/11/2023 Nocturia 08/11/2023 Gallbladder polyp 08/11/2023 Paget's disease of bony pelvis 08/11/2023 Primary hypertension 08/11/2023 Rash of genitalia 08/11/2023 Ureteral stone 08/11/2023 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 08/11/2023 Post-void dribbling 08/11/2023 Urge incontinence 08/11/2023 Urgency of urination 08/11/2023 Vitamin D deficiency 08/11/2023 History of kidney stones 08/11/2023 Microhematuria 08/11/2023 Diverticulosis 07/27/2023 Nonrheumatic aortic (valve) stenosis 07/27/2023 Assessment & Plan (06/29/2024 4:35 PM EDT): - Patient with severe aortic valve stenosis with plan for future TAVR Assessment & Plan (06/28/2024 5:18 PM EDT): - Patient with severe aortic valve stenosis with plan for future TAVR Assessment & Plan (06/27/2024 7:43 PM EDT): - Patient with severe aortic valve stenosis with plan for future TAVR Right upper quadrant pain 07/27/2023 Preop cardiovascular exam 12/01/2021 Closed nondisplaced fracture of sternal end of right clavicle 11/14/2021 Femur fracture 10/26/2021 Encounters Date Type Department Care Team Description 08/15/2024 12:45 PM EDT Follow-Up [address] [address] Jez Martin MD S/P TAVR (transcatheter aortic valve replacement) (Primary Dx) 08/10/2024 3:20 PM EDT - 08/10/2024 11:59 PM EDT Hospital Encounter [facility] Heart and Vascular Center Heart Station [address] [place] [phone] S/P TAVR (transcatheter aortic valve replacement) Discharge Disposition: Home or Self Care () 08/10/2024 2:00 PM EDT Follow-Up [facility] Heart and Vascular [facility] [address] [place] [address] Lesly Marcial CNP Hematoma of neck, sequela (Primary Dx); S/P TAVR (transcatheter aortic valve replacement) 08/10/2024 1:40 PM EDT Follow-Up [facility] [address] [place] [address] Kimani Spring MD S/P TAVR (transcatheter aortic valve replacement) (Primary Dx); Primary hypertension; Coronary artery disease involving false pass coronary artery of false pass heart without angina pectoris; PAF (paroxysmal atrial fibrillation) (CMS/HCC); Status post insertion of drug eluting coronary artery stent; PAD (peripheral artery disease) 08/01/2024 1:15 PM EDT Anesthesia Event [facility] [address] [facility] [place] [address] Kathi Lyons MD Uberoi, Ravindera, MD 08/01/2024 11:00 AM EDT - 08/01/2024 1:00 PM EDT Surgery [facility] [address] [facility] [place] [address] Kimani Spring MD TAVR 08/01/2024 9:20 AM EDT - 08/06/2024 3:02 PM EDT Hospital Encounter [facility] [address] [place] [address] Kimani Spring MD Lee, Jai, MD Horani, Omar, MD Iqbal, Amna, MD Severe aortic valve stenosis (Primary Dx); Nonrheumatic aortic valve stenosis; S/P TAVR (transcatheter aortic valve replacement); Aortic stenosis, severe; Acute cystitis without hematuria Discharge Disposition: Home-Health Care Svc () 08/01/2024 9:16 AM EDT - 08/01/2024 9:19 AM EDT Hospital Encounter [facility] [address] [place] [address] Nonrheumatic aortic valve stenosis Discharge Disposition: Home or Self Care () 08/01/2024 Travel 08/01/[address] [address] Machelle Mann MA Paroxysmal atrial fibrillation (CMS/HCC) 07/27/2024 Orders Only [facility] Pre-Anesthesia Clinic [address] [facility] [place] [address] Ag Hummel RN 07/26/2024 Orders Only [facility] [address] [place] [address] Lizz Mayer CNP Contrast media allergy 07/19/2024 5:15 PM EDT Ancillary Procedure [facility] [address] [place] [address] Awareness of heartbeats 07/18/2024 Orders Only [facility] [address] [place] [address] Jez Martin MD 07/13/2024 Travel 07/10/2024 9:45 AM EDT Office Visit [facility] [address] [place] [address] Kimani Spring MD Nonrheumatic aortic valve stenosis (Primary Dx); Coronary artery disease involving false pass coronary artery of false pass heart without angina pectoris; PAF (paroxysmal atrial fibrillation) (CMS/HCC); PAD (peripheral artery disease); Contrast media allergy; Status post insertion of drug eluting coronary artery stent; Chronic anemia 07/04/2024 Orders Only [facility] [address] [place] [address] Lizz Mayer CNP Nonrheumatic aortic valve stenosis (Primary Dx) 06/29/2024 3:52 PM EDT Anesthesia Event [facility] Main Operating Room [address] [facility] [place] [address] Kathi Lyons MD Brewer, Shawn, DEVIN 06/29/2024 Travel 06/27/2024 1:30 PM EDT - 06/27/2024 3:30 PM EDT Surgery [facility] [address] [place] [address] Kimani Spring MD Percutaneous coronary intervention 06/27/2024 8:42 AM EDT - 06/30/2024 2:39 PM EDT Hospital Encounter [facility] [address] [facility] [place] [address] Kimani Spring MD Salahaldeen, Aya, MD Chang, Kyu Chul, MD Abrasion of trachea (Primary Dx); 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; Nonrheumatic aortic valve stenosis; Hemoptysis; Triple vessel coronary artery disease; Paroxysmal atrial fibrillation (CMS/HCC); Chronic anemia Discharge Disposition: Home or Self Care () 06/27/2024 Travel 06/20/2024 Orders Only [facility] [address] [place] [address] Lizz Mayer CNP 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 (Primary Dx); Nonrheumatic aortic valve stenosis 06/20/2024 Travel 06/20/2024 Orders Only [facility] [address] [place] [phone] Francisca Luciano RN Nonrheumatic aortic valve stenosis (Primary Dx) 06/19/2024 8:20 PM EDT Ancillary Procedure [facility] [address] [place] [address] Awareness of heartbeats 06/19/2024 Orders Only [place] [address] [place] [address] Evy Muhammad MA 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 06/18/2024 Orders Only [facility] [address] [place] [address] Lizz Mayer CNP Nonrheumatic aortic valve stenosis (Primary Dx) 06/15/2024 Orders Only [facility] [address] [place] [address] Lizz Mayer CNP Nonrheumatic aortic valve stenosis (Primary Dx) 06/06/2024 12:23 PM EDT - 06/06/2024 11:59 PM EDT Hospital Encounter [facility] [place] [address] Nonrheumatic aortic valve stenosis Discharge Disposition: Home or Self Care () 06/06/2024 12:22 PM EDT Hospital Encounter [facility] CT Imaging [address] [place] [address] Nonrheumatic aortic valve stenosis Discharge Disposition: Home or Self Care () 05/30/2024 1:40 PM EDT Anesthesia Event [facility] [place] [address] Felipe Simon MD Brochin, Evan, MD 05/30/2024 11:13 AM EDT - 05/30/2024 11:59 PM EDT Hospital Encounter [facility] Main Operating Room [address] [place] [address] La Nena Brennan MD Casabianca, Andrew, MD Harris, Madeline S[facility] Oral phase dysphagia Discharge Disposition: Home or Self Care () 05/30/2024 10:01 AM EDT - 05/30/2024 11:12 AM EDT Hospital Encounter [facility] Vascular [place] [address] Nonrheumatic aortic valve stenosis; Other specified symptoms and signs involving the circulatory and respiratory systems Discharge Disposition: Home or Self Care () 05/30/2024 Travel 05/25/2024 Orders Only [facility] [place] [facility] [address] [place] [address] Lizz Mayer CNP Nonrheumatic aortic valve stenosis (Primary Dx); Contrast media allergy 05/24/2024 Travel 05/23/2024 Orders Only [facility] [place] [facility] [address] [place] [address] Lizz Mayer CNP Oral phase dysphagia (Primary Dx) from Last 3 Months Family History Medical History Relation Name Comments No Known Problems Father Heart disease Mother No Known Problems Sister Relation Name Status Comments Father Mother Sister Alive Social History Tobacco Use Types Packs/Day Years Used Date Smoking Tobacco: Former Cigarettes 2 40 1 958 - 1997 Smokeless Tobacco: Never Tobacco Cessation:Counseling Given: Not Answered Alcohol Use Standard Drinks/Week Comments Not Currently 3 (1 standard drink = 0.6 oz pur e alcohol) 4x week- [email or web address] [facility] Utilities Answer Date Recorded In the past 12 months has th e [employer], gas, oil, or water [employer] threatened to shut off services in your [...] any time in the past 12 m [facility], were you homeless or living in a custodial (including now)? No 08/02/2024 Hunger Vital Sign [...] Heterosexual or Straight 04/2024 8:39 AM EDT Last Filed Vital Signs Vital Sign Reading Time Taken Comments Blood Pressure 132/69 08/15/2024 1:24 PM EDT Pulse 78 08/15/2024 1:24 PM EDT Temperature 36.5 C (97.7 F) 08/06/2024 7:50 AM EDT Respiratory Rate 17 08/06/2024 12:00 PM EDT Oxygen Saturation 99% 08/15/2024 1:24 PM EDT Inhaled Oxygen Concentration - - Weight 56.7 kg (125 lb) 08/15/2024 1:24 PM EDT Height 167.6 cm (5' 6 ) 08/15/2024 1:24 PM EDT Body Mass Index 20.18 08/15/2024 1:24 PM EDT Plan of Treatment Upcoming Encounters Date Type Department Care Team (Late st Contact Info) Description 08/31/2024 1:30 PM EDT Appointment [facility] Heart and Vascular Center Heart Station [address] [address] 09/04/2024 11:15 AM EDT Follow-Up [facility] Heart at [facility] [address] [place] [address] Kimani Spring MD [address] [facility] [address] [facility] [place] [address] 09/19/2024 3:30 PM EDT [facility] [address] [place] [address] Paul Mayen MD [address] [place], [place] [id number] Health Maintenance Due Date Last Done Comments Medicare Annual Wellness (AWV) 1940 Pneumococcal Vaccine: 50+ Ye ars (1 of 2 - PCV) 1961 Adult Tetanus 1964 Zoster Vaccines (1 of 2) 1992 COVID-19 Vaccine (2 - 2023-2 5 season) 2023 06/13/2020 Influenza Vaccine (Season Ended) 2024 Depression Screening 08/10/2025 08/10/2024 Fall Risk Screening 08/10/2025 08/10/2024 HIB Vaccines Aged Out No longer eligi ble based on patient's age to complete this topic HPV Vaccines Aged Out No longer eligi ble based on patient's age to complete this topic IPV Vaccines Aged Out No longer eligi ble based on patient's age to complete this topic Meningococcal B Vaccine Aged Out No l onger eligible based on patient's age to complete this topic Meningococcal Vaccine Aged Out No ashly conrad eligible based on patient's age to complete this topic Rotavirus Vaccines Aged Out No longer eligible based on patient's age to complete this topic Medical Devices Implanted Type Area Streetcar [employer] Device Identifier Shelf Expiration Date Model / Serial / Lot Stent,Synerg y Mr 2.25 X 16 - [id number] Implanted:Qt y: 1 on 06/27/2024 by Kimani Spring MD at [facility] Drug Eluting Stent N/A: Coronary [employer] [id number] 09/06/2025 [id number] / / [id number] Stent,Synerg y Mr 2.50 X 12 - [id number] Implanted:Qt y: 1 on 06/27/2024 by Kimani Spring MD at [facility] Drug Eluting Stent N/A: Coronary [employer] [id number] 08/01/2025 [id number] / / [id number] Monitor,Card iac,Lux,Dxii +[facility] - [id number] - [id number] Implanted:Qt y: 1 on 04/12/2024 by Jez Martin MD at [facility] Implantable Loop Recorder N/A: Chest [employer] 08/02/2025 [id number] / [id number] / Valve,Aortic ,Evolutfm+,2 9mm - [id number] - [id number] Implanted:Qt y: 1 on 08/01/2024 by Kimani Spring MD at [facility] Prosthetic Valve N/A: Aorta [employer] [id number] 03/30/2026 [id number] -29 / [id number] / Procedures Procedure Name Priority Date/Time Associated Diagnosis Comments ECG 12-LEAD Routine 08/10/2024 3:28 PM EDT S/P TAVR (transcatheter aortic valve replacement) CBC WITH AUTO DIFFERENTIAL Pending Discharge 08/06/2024 3:42 AM EDT MAGNESIUM Pending Discharge 08/06/2024 3:42 AM EDT BASIC METABOLIC PANEL Pending Discharge 08/06/2024 3:42 AM EDT CBC AND DIFFERENTIAL Routine 08/06/2024 3:42 AM EDT OCCULT BLOOD X 1, STOOL Pending Discharge 08/05/2024 8:23 PM EDT PREPARE RBC Routine 08/05/2024 8:30 AM EDT CBC WITH AUTO DIFFERENTIAL STAT Add-on 08/05/2024 3:53 AM EDT CBC AND DIFFERENTIAL STAT Add-on 08/05/2024 3:53 AM EDT LAVENDER TOP Routine 08/05/2024 3:53 AM EDT EXTRA TUBES Routine 08/05/2024 3:53 AM EDT BASIC METABOLIC PANEL Pending Discharge 08/05/2024 3:53 AM EDT MAGNESIUM Pending Discharge 08/04/2024 9:15 AM EDT BASIC METABOLIC PANEL Pending Discharge 08/04/2024 9:15 AM EDT LAVENDER TOP Routine 08/04/2024 9:00 AM EDT EXTRA TUBES Routine 08/04/2024 9:00 AM EDT XR CHEST 1 VIEW Routine 08/04/2024 6:35 AM EDT MANUAL DIFFERENTIAL Routine 08/03/2024 12:33 PM EDT CBC WITH AUTO DIFFERENTIAL Routine 08/03/2024 12:33 PM EDT CBC AND DIFFERENTIAL Routine 08/03/2024 12:33 PM EDT LIPID PANEL Routine 08/03/2024 12:33 PM EDT BLOOD CULTURE Routine 08/03/2024 12:33 PM EDT BLOOD CULTURE Routine 08/03/2024 12:33 PM EDT XR CHEST 1 VIEW STAT 08/03/2024 12:06 PM EDT URINALYSIS MICROSCOPIC WITH REFLEX CULTURE Routine 08/03/2024 9:43 AM EDT URINALYSIS WITH REFLEX CULTURE Routine 08/03/2024 9:43 AM EDT URINE CULTURE Routine 08/03/2024 9:43 AM EDT ECG 12-LEAD Routine 08/02/2024 2:48 PM EDT FL ESOPHAGUS BARIUM SWALLOW WITH VIDEO AND SPEECH Routine 08/02/2024 10:46 AM EDT LIMITED ECHO (TTE) W/ LIMITED DOPPLER, COLOR FLOW AND IMAGING AGENT Routine 08/02/2024 8:58 AM EDT BASIC METABOLIC PANEL Routine 08/02/2024 4:29 AM EDT CBC Routine 08/02/2024 4:29 AM EDT XR CHEST 1 VIEW Routine 08/02/2024 3:13 AM EDT CBC Routine 08/02/2024 12:02 AM EDT ECG 12-LEAD STAT 08/01/2024 5:19 PM EDT POCT GLUCOSE METER UNSOLICITED RESULTS Routine 08/01/2024 5:02 PM EDT CBC WITH AUTO DIFFERENTIAL STAT 08/01/2024 5:00 PM EDT CBC AND DIFFERENTIAL STAT 08/01/2024 5:00 PM EDT PROTIME-INR STAT 08/01/2024 5:00 PM EDT APTT STAT 08/01/2024 5:00 PM EDT PHOSPHORUS STAT 08/01/2024 5:00 PM EDT MAGNESIUM STAT 08/01/2024 5:00 PM EDT BASIC METABOLIC PANEL STAT 08/01/2024 5:00 PM EDT TAVR Routine 08/01/2024 4:03 PM EDT Nonrheumatic aortic valve stenosis POCT ACT Routine 08/01/2024 3:49 PM EDT LIMITED ECHOCARDIOGRAM (TTE) W/ LTD DOPPLER AND COLOR FLOW Routine 08/01/2024 3:33 PM EDT Nonrheumatic aortic valve stenosis POCT ACT Routine 08/01/2024 3:14 PM EDT POCT ACT Routine 08/01/2024 2:36 PM EDT PREPARE RBC Routine 08/01/2024 1:54 PM EDT ARTERIAL BLOOD GAS WITH IONIZED CALCIUM Timed 08/01/2024 1:52 PM EDT TYPE AND SCREEN Routine 08/01/2024 1:49 PM EDT NV AN ELECTIVE ENDOTRACHEAL AIRWAY Routine 08/01/2024 1:29 PM EDT ANESTHESIA ARTERIAL LINE PLACEMENT Routine 08/01/2024 1:00 PM EDT POCT GLUCOSE METER UNSOLICITED RESULTS Routine 08/01/2024 10:20 AM EDT CARDIAC DEVICE CHECK CHECK - REMOTE Routine 07/28/2024 9:56 AM EDT Awareness of heartbeats CARDIAC DEVICE CHECK - REMOTE - LOOP RECORDER (ILR) Routine 07/18/2024 12:00 AM EDT BASIC METABOLIC PANEL Pending Discharge 06/30/2024 5:35 AM EDT CBC Pending Discharge 06/30/2024 5:35 AM EDT HEMOGLOBIN AND HEMATOCRIT, BLOOD Pending Discharge 06/29/2024 11:10 PM EDT HEMOGLOBIN AND HEMATOCRIT, BLOOD Pending Discharge 06/29/2024 6:03 PM EDT XR CHEST 1 VIEW STAT 06/29/2024 5:00 PM EDT BRONCHOSCOPY Routine 06/29/2024 4:09 PM EDT Hemoptysis FERRITIN Add-On 06/29/2024 11:06 AM EDT TRANSFERRIN Add-On 06/29/2024 11:06 AM EDT VITAMIN B12 Add-On 06/29/2024 11:06 AM EDT FOLATE Add-On 06/29/2024 11:06 AM EDT IRON AND TIBC Add-On 06/29/2024 11:06 AM EDT HEMOGLOBIN AND HEMATOCRIT, BLOOD Pending Discharge 06/29/2024 11:05 AM EDT BASIC METABOLIC PANEL Pending Discharge 06/29/2024 5:50 AM EDT CBC Pending Discharge 06/29/2024 5:50 AM EDT HEMOGLOBIN AND HEMATOCRIT, BLOOD Timed 06/28/2024 11:35 PM EDT HEMOGLOBIN AND HEMATOCRIT, BLOOD STAT 06/28/2024 5:08 PM EDT CBC STAT 06/28/2024 5:47 AM EDT MAGNESIUM Pending Discharge 06/28/2024 4:12 AM EDT BASIC METABOLIC PANEL Pending Discharge 06/28/2024 4:12 AM EDT HEMOGLOBIN AND HEMATOCRIT, BLOOD Timed 06/28/2024 12:15 AM EDT ECG 12-LEAD Today 06/27/2024 8:34 PM EDT XR CHEST 1 VIEW Routine 06/27/2024 7:18 PM EDT PERC CORONARY INTERVENTION Routine 06/27/2024 4:24 PM EDT 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 POCT ACT Routine 06/27/2024 4:01 PM EDT POCT ACT Routine 06/27/2024 3:32 PM EDT ECHO ABORTED PROCEDURE Routine 06/27/2024 10:30 AM EDT Nonrheumatic aortic valve stenosis ECG 12-LEAD STAT 06/27/2024 9:33 AM EDT CARDIAC DEVICE CHECK - REMOTE - LOOP RECORDER (ILR) Routine 06/19/2024 11:28 AM EDT Awareness of heartbeats CTA CHEST W IV CONTRAST Routine 06/06/2024 1:10 PM EDT Nonrheumatic aortic valve stenosis CTA ABDOMEN PELVIS W IV CONTRAST Routine 06/06/2024 1:10 PM EDT Nonrheumatic aortic valve stenosis EGD Routine 05/30/2024 2:03 PM EDT Oral phase dysphagia HISTOLOGY - TISSUE EXAM Routine 05/30/2024 1:51 PM EDT Oral phase dysphagia POCT GLUCOSE METER UNSOLICITED RESULTS Routine 05/30/2024 11:48 AM EDT VASC US CAROTID ARTERY DUPLEX BILATERAL Routine 05/30/2024 11:19 AM EDT Nonrheumatic aortic valve stenosis Other specified symptoms and signs involving the circulatory and respiratory systems CARDIAC DEVICE CHECK CHECK - REMOTE Routine 05/23/2024 9:22 AM EDT Awareness of heartbeats from Last 3 Months Results * ECG 12 lead (08/10/2024 3:28 PM EDT) Only the most recent of5 resultswithin the time period is included. Ventricular Rate 73 BPM GE MUSE Atrial Rate 73 BPM GE MUSE NV Interval 148 ms GE MUSE QRS DURATION 136 ms GE MUSE QT Interval 432 ms GE MUSE QTC CALCULATION(BAZE TT) 475 ms GE MUSE P Carlton 59 degrees GE MUSE R-Carlton 108 degrees GE MUSE T Wave Carlton 13 degrees GE MUSE 08/10/2024 3:25 PM EDT 08/10/2024 6:15 PM EDT Impressions GE MUSE - 08/10/2024 6:15 PM EDT Normal sinus rhythm Right axis deviation Non-specific intra-ventricular conduction block Abnormal ECG When compared with ECG of 28-MAY-2025 14:42, QRS duration has increased T wave amplitude has increased in Lateral QT has lengthened Confirmed by Saloni SHABAZZ SAMER J. ([id number]) on 08/10/2024 6:15:45 PM Narrative Procedure Note Shira Shabazz MD - 08/10/2024 IMPRESSION: Normal sinus rhythm Right axis deviation Non-specific intra-ventricular conduction block Abnormal ECG When compared with ECG of 02-AUG-2024 14:42, QRS duration has increased T wave amplitude has increased in Lateral QT has lengthened Confirmed by Saloni SHABAZZ, SHIRA Forbes ([id number]) on 08/10/2024 6:15:45 PM Kimani Spring MD ECG ORDERABLES Final Result GE MUSE * (ABNORMAL) CBC auto differential (08/06/2024 3:42 AM EDT) Only the most recent of4 resultswithin the time period is included. Auto WBC 8.24 4.00 - 10.60 10*3/uL 08/06/2024 4:38 AM EDT [facility] ([facility]) RBC 3.03(L) 4.20 - 5.70 10*6/uL 08/06/2024 4:38 AM EDT [facility] ([facility]) Hemoglobin 9.0(L) 13.0 - 17.0 g/dL 08/06/2024 4:38 AM EDT [facility] ([facility]) Hematocrit 28.0(L) 39.0 - 50.0 % 08/06/2024 4:38 AM EDT [facility] ([facility]) MCV 92.4 82.0 - 98.0 fL 08/06/2024 4:38 AM EDT [facility] ([facility]) MCH 29.7 27.0 - 33.0 pg 08/06/2024 4:38 AM EDT [facility] ([facility]) MCHC 32.1 32.0 - 35.0 g/dL 08/06/2024 4:38 AM EDT [facility] ([facility]) RDW 13.0 11.5 - 15.0 % 08/06/2024 4:38 AM T [facility] ([facility]) Neutrophils % 69.5 40.0 - 72.0 % 08/06/2024 4:38 AM T [facility] ([facility]) Lymphocytes % 16.6(L) 20.0 - 45.0 % 08/06/2024 4:38 AM [facility] ([facility]) Monocytes % 11.2 5.0 - 12.0 % 08/06/2024 4:38 AM T [facility] ([facility]) Eosinophils % 1.8 0.0 - 6.0 % 08/06/2024 4:38 AM [facility] ([facility]) Basophils % 0.4 0.0 - 1.0 % 08/06/2024 4:38 AM [facility] ([facility]) Neutrophils Absolute 5.73 1.60 - 7.60 10*3/uL 08/06/2024 4:38 AM [facility] ([facility]) Lymphocytes Absolute 1.37 1.20 - 4.00 10*3/uL 08/06/2024 4:38 AM [facility] ([facility]) Monocytes Absolute 0.92 0.10 - 1.00 10*3/uL 08/06/2024 4:38 AM [facility] ([facility]) Eosinophils Absolute 0.15 0.00 - 0.50 10*3/uL 08/06/2024 4:38 AM [facility] ([facility]) Basophils Absolute 0.03 0.00 - 0.20 10*3/uL 08/06/2024 4:38 AM [facility] ([facility]) Platelets 165 150 - 400 10*3/uL 08/06/2024 4:38 AM [facility] ([facility]) nRBC % 0.0 0 % 08/06/2024 4:38 AM [facility] ([facility]) Immature Granulocytes % 0.5 0.0 - 1.0 % 08/06/2024 4:38 AM [facility] ([facility]) Immature Granulocytes Absolute 0.04 0.00 - 0.20 10*3/uL 08/06/2024 4:38 AM EDT [facility] ([facility]) Blood Venous blood specimen / Unknown Venipuncture / Unknown 08/06/2024 3:42 AM EDT 08/06/2024 4:24 AM EDT Isa Camarillo MD LAB BLOOD ORDERABLES Final Resul t Performing Organization Address City/[facility]/ZIP Co de Phone Number [facility]) [address] [place] [phone] * (ABNORMAL) Magnesium (08/06/2024 3:42 AM EDT) Only the most recent of4 resultswithin the time period is included. Magnesium 1.7(L) 1.9 - 2.7 mg/dL 08/06/2024 4:46 AM EDT [facility] ([facility]) Blood Venous blood specimen / Unknown Venipuncture / Unknown 08/06/2024 3:42 AM EDT 08/06/2024 4:22 AM EDT Isa Camarillo MD LAB BLOOD ORDERABLES Final Resul t Performing Organization Address [facility] Co de Phone Number [facility] ([facility]) [address] [place] [phone] * (ABNORMAL) Basic metabolic panel (08/06/2024 3:42 AM EDT) Only the most recent of8 resultswithin the time period is included. Sodium 136 136 - 145 mmol/L 08/06/2024 4:46 AM EDT [facility] ([facility]) Potassium 4.1 3.5 - 5.1 mmol/L 08/06/2024 4:46 AM EDT [facility] ([facility]) Chloride 104 98 - 107 mmol/L 08/06/2024 4:46 AM EDT [facility] ([facility]) CO2 27 21 - 31 mmol/L 08/06/2024 4:46 AM EDT [facility] ([facility]) BUN 22 7 - 25 mg/dL 08/06/2024 4:46 AM EDT [facility] ([facility]) Creatinine 0.55(L) 0.70 - 1.30 mg/dL 08/06/2024 4:46 AM EDT [facility] ([facility]) Glucose 107(H) 70 - 100 mg/dL 08/06/2024 4:46 AM EDT [facility] ([facility]) Calcium 7.9(L) 8.6 - 10.3 mg/dL 08/06/2024 4:46 AM EDT [facility] ([facility]) Anion Gap 9 7 - 20 mmol/L 08/06/2024 4:46 AM EDT [facility] ([facility]) eGFR 98.9 >60.0 mL/min/1. 73m*2 08/06/2024 4:46 AM EDT [facility] ([facility]) Comment:The [facility] s estimated glomerular filtration rate (eGFR) will no longer include consideration of race in its calculation. The [employer] s eGFR Task Force developed new recommendations for [...] disproportionately affect any one group of individuals. BUN/Creatinine Ratio 40.0 03/2024 4:46 AM EDT [facility] ([facility]) Blood Venous blood specimen / Unknown Venipuncture / Unknown 08/06/2024 3:42 AM EDT 08/06/2024 4:22 AM EDT us Isa Camarillo MD LAB BLOOD ORDERABLES Final Resul t [facility]) [address] [place] [address] * Occult blood x 1, stool (08/05/2024 8:23 PM EDT) Fecal Occult Bld Negative Negative, None Detected 08/05/2024 8:54 PM EDT [facility] ([facility]) Stool Rectal contents / Unknown Non-blood Collection / Unknown 08/05/2024 8:23 PM EDT 08/05/2024 8:27 PM EDT us Isa Camarillo MD LAB BODY FLUIDS AND STOOLS ORDER LEONILA Final Result [facility] ([facility]) [address] [place] [address] * Prepare RBC (08/05/2024 8:30 AM EDT) Only the most recent of2 resultswithin the time period is included. PRODUCT CODE F3060R05 [facility] BL OOD BANK Unit Number [id number] [facility] BLOOD BANK Unit ABO A [facility] BLOOD BANK Unit Rh POS [facility] BLOOD BANK Dispense Status RE [facility] BLOOD BANK Blood Expiration Date [id number] [facility] BLOOD BANK Product Blood Type 6200 [facility] BLOOD BANK Unit Volume 300 ML [facility] BLO OD [facility]ANK PRODUCT CODE [id number] [facility] BL OOD BANK Unit Number [id number] [facility] BLOOD BANK Unit ABO A [facility] BLOOD BANK Unit Rh POS [facility] BLOOD BANK Dispense Status RE [facility] BLOOD BANK Blood Expiration Date [id number] [facility] BLOOD BANK Product Blood Type 6200 [facility] BLOOD BANK us Regino Brewer MD BLOOD BANK PRODUCT ORDERABLES Fi nal Result Performing Organization Address City/[facility]/ZIP Co de Phone Number [facility] BLOOD BANK * Lavender Top (08/05/2024 3:53 AM EDT) Only the most recent of2 resultswithin the time period is included. Extra Tube Hold for add-ons. 08/05/2024 6:01 AM EDT [facility] ([facility]) Comment:Auto resulted. Blood Venous blood specimen / Unknown 08/05/2024 3:53 AM EDT 08/05/2024 4:14 AM EDT us Isa Camarillo MD LAB BLOOD ORDERABLES Final Resul t [facility] ([facility]) [address] [place] [address] * XR chest 1 view (08/04/2024 6:35 AM EDT) Only the most recent of5 resultswithin the time period is included. Anatomical Region Laterality Modality Chest Computed Radiogr aphy 08/04/2024 7:30 AM EDT Impressions 08/04/2024 7:30 AM EDT Impression: * No consolidation or pleural fluid. No acute findings. * Electronically signed: Jun Love. Narrative 08/04/2024 7:30 AM EDT Single view chest History: leukocytosis Comparison: August 03 Procedure Note Jun Love MD - 08/04/2024 Single view chest History: leukocytosis Comparison: August 03 IMPRESSION: Impression: *No consolidation or pleural fluid. No acute findings. * Electronically signed: Jun Love. us Ian Salomon MD IMG XR PROCEDURES Final Resul t * (ABNORMAL) Manual Differential (08/03/2024 12:33 PM EDT) Immature Granulocytes % 0.8 0.0 - 1.0 % 08/03/2024 2:22 PM EDT [facility] ([facility]) Neutrophils Absolute 11.2(H) 1.6 - 7.6 10*3/uL 08/03/2024 2:22 PM EDT [facility] ([facility]) Lymphocytes Absolute 1.06(L) 1.20 - 4.00 10*3/uL 08/03/2024 2:22 PM EDT [facility] ([facility]) Monocytes Absolute 1.68(H) 0.10 - 1.00 10*3/uL 08/03/2024 2:22 PM EDT [facility] ([facility]) Eosinophils Absolute 0.00 0.00 - 0.50 10*3/uL 08/03/2024 2:22 PM EDT [facility] ([facility]) Basophils Absolute 0.01 0.00 - 0.20 10*3/uL 08/03/2024 2:22 PM EDT [facility] ([facility]) Neutrophils % 79.7(H) 40.0 - 72.0 % 08/03/2024 2:22 PM EDT [facility] ([facility]) Lymphocytes % 7.5(L) 20.0 - 45.0 % 08/03/2024 2:22 PM EDT [facility] ([facility]) Monocytes % 11.9 5.0 - 12.0 % 08/03/2024 2:22 PM EDT [facility] ([facility]) Eosinophils % 0.0 0.0 - 6.0 % 08/03/2024 2:22 PM EDT [facility] ([facility]) Basophils % 0.1 0.0 - 1.0 % 08/03/2024 2:22 PM EDT [facility] ([facility]) Immature Granulocytes Absolute 0.11 0.00 - 0.20 10*3/uL 08/03/2024 2:22 PM EDT [facility] ([facility]) Blood Venous blood specimen / Unknown Venipuncture / Unknown 08/03/2024 12:33 PM EDT 08/03/2024 1:04 PM EDT Radha Campoverde PA-C LAB BLOOD ORDERABLES Areli l Result [facility] ([facility]) [address] [place] [address] * Blood culture (08/03/2024 12:33 PM EDT) Only the most recent of2 resultswithin the time period is included. Blood Culture No growth at 5 days TONJA 08/08/2024 2:01 PM EDT [facility] ([facility]) Blood Venous blood specimen / Unknown Venipuncture / Unknown 08/03/2024 12:33 PM EDT 08/03/2024 1:04 PM EDT Lesly Marcial CNP LAB MICROBIOLOGY - GENERAL LUIZ JEONG Final Result [facility] ([facility]) [address], [place] [id number] * (ABNORMAL) Lipid panel (08/03/2024 12:33 PM EDT) Triglycerides 165(H) <150 mg/dL 08/03/2024 1:58 PM EDT [facility] ([facility]) Comment: TRIGLYCERIDE REFERENCE RANGE: 20 YEARS AND OLDER CARDIOVASCULAR RISK LESS THAN 150 mg/dL LOW RISK 150 TO 199 mg/dL BORDERLINE RISK 200 mg/dL AND GREATER HIGH RISK Cholesterol 86(L) 120 - 200 mg/dL 08/03/2024 1:58 PM EDT [facility] ([facility]) LDL Calculated 30 0 - 160 mg/dL 08/03/2024 1:58 PM EDT [facility] ([facility]) HDL 23 23 - 92 mg/dL 08/03/2024 1:58 PM EDT [facility] ([facility]) Non HDL Cholesterol 63 08/03/2024 1:58 PM EDT [facility] ([facility]) Total VLDL-C 33 0 - 40 mg/dL 08/03/2024 1:58 PM EDT [facility] ([facility]) Cholesterol/HDL Ratio 3.7 mg/dL 08/03/2024 1:58 PM EDT [facility] ([facility]) Blood Venous blood specimen / Unknown Venipuncture / Unknown 08/03/2024 12:33 PM EDT 08/03/2024 1:04 PM EDT us Stan Simms MD LAB BLOOD ORDERABLES Final Resu lt [facility] ([facility]) [address] [place] [address] * (ABNORMAL) Urinalysis microscopic with reflex culture (08/03/2024 9:43 AM EDT) RBC, Urine >20(A) None Seen, 0-2 /HPF 08/03/2024 10:22 AM EDT [facility] ([facility]) WBC, Urine 11-20(A) None Seen, 0-2 /HPF 08/03/2024 10:22 AM EDT [facility] ([facility]) Squamous Epithelial, Urine Occasional None Seen, Occasional , Few /LPF 08/03/2024 10:22 AM EDT [facility] ([facility]) Mucus, Urine Occasional None Seen, Occasional , Few /LPF 08/03/2024 10:22 AM T [facility] ([facility]) Urine Urine specimen obtained by clean catch procedure / Unknown Non-blood Collection / Unknown 08/03/2024 9:43 AM EDT 08/03/2024 9:48 AM EDT us Mark Anthony Frey MD LAB URINE ORDERABLES Final Resul t [facility] ([facility]) [address], [place] [id number] * (ABNORMAL) Urinalysis with reflex culture (08/03/2024 9:43 AM EDT) Color, Urine Yellow Colorless, Yellow, Light-Yellow 08/03/2024 10:22 AM [facility] ([facility]) Clarity, Urine Clear Clear 08/03/2024 10:22 AM [facility] ([facility]) pH, Urine 5.5 5.0 - 8.0 pH 08/03/2024 10:22 AM [facility] ([facility]) Leukocytes, Urine Moderate(A) Negative 08/03/2024 10:22 AM [facility] ([facility]) Nitrite, Urine Negative Negative 08/03/2024 10:22 AM [facility] ([facility]) Protein, Urine Negative Negative mg/dL 08/03/2024 10:22 AM [facility] ([facility]) Glucose, Urine Normal Normal mg/dL 08/03/2024 10:22 AM [facility] ([facility]) Bilirubin, Urine Negative Negative 08/03/2024 10:22 AM [facility] ([facility]) Specific Candia, Urine 1.030 1.010 - 1.030 08/03/2024 10:22 AM [facility] ([facility]) Ketones, Urine Negative Negative mg/dL 08/03/2024 10:22 AM EDT [facility] ([facility]) Blood, Urine Large(A) Negative 08/03/2024 10:22 AM EDT [facility] ([facility]) Urobilinogen, Urine Normal Normal mg/dL 08/03/2024 10:22 AM EDT [facility] ([facility]) Urine Urine specimen obtained by clean catch procedure / Unknown Non-blood Collection / Unknown 08/03/2024 9:43 AM EDT 08/03/2024 9:48 AM EDT us Mark Anthony Frey MD LAB URINE ORDERABLES Final Resul t [facility]) [address] [place] [address] * Urine culture, routine (08/03/2024 9:43 AM EDT) Urine Culture No growth at 48 hours TONJA 08/05/2024 7:43 AM EDT [facility] ([facility]) Urine Urine specimen obtained by clean catch procedure / Unknown Non-blood Collection / Unknown 08/03/2024 9:43 AM EDT 08/03/2024 9:48 AM EDT us Mark Anthony Frey MD LAB MICROBIOLOGY - GENERAL ORDER LEONILA Final Result Performing Organization Address City/[facility]/ZIP Co de Phone Number [facility]) [address] [place] [address] * FL modified barium swallow (08/02/2024 10:46 AM EDT) Anatomical Region Laterality Modality Head, Neck Radio Fluoroscop y 08/02/2024 3:42 PM EDT Impressions 08/02/2024 3:44 PM EDT Deep laryngeal penetration with thin consistency barium cup and straw and nectar consistency barium. Aspiration with thin consistency barium to the level of the cords with delayed cough response. See speech pathology report Electronically signed: Alexei Velasquez MD. Narrative 08/02/2024 3:44 PM EDT FL ESOPHAGUS BARIUM SWALLOW WITH VIDEO AND SPEECH 08/02/2024 10:29 AM CLINICAL INDICATIONS: Oral pharyngeal dysphagia, difficulty swallowing COMPARISON: No prior FINDINGS: Video fluoroscopic swallow study was performed in conjunction with members of speech pathology. Barium contrast materials of multiple consistencies were administered. Fluoroscopic time [id number] seconds. 11.4 mgy. Deep laryngeal penetration with thin consistency barium cup and straw and nectar consistency barium. Aspiration with thin consistency barium to the level of the cords with delayed cough response. Correlate with dedicated speech pathology report for additional details and recommendations. Procedure Note Alexei Velasquez MD - 08/02/2024 [place] ESOPHAGUS BARIUM SWALLOW WITH VIDEO AND SPEECH 08/02/2024 10:29 AM CLINICAL INDICATIONS: Oral pharyngeal dysphagia, difficulty swallowing COMPARISON: No prior FINDINGS: Video fluoroscopic swallow study was performed in conjunction with membersof speech pathology. Barium contrast materials of multiple consistencieswere administered. Fluoroscopic time [id number] seconds. 11.4 mgy. Deep laryngeal penetration with thin consistency barium cup and straw andnectar consistency barium. Aspiration with thin consistency barium to the levelof the cords with delayed cough response. Correlate with dedicated speech pathology report for additional detailsand recommendations. IMPRESSION: Deep laryngeal penetration with thin consistency barium cup and straw andnectar consistency barium. Aspiration with thin consistency barium to the levelof the cords with delayed cough response. See speech pathology report Electronically signed: Alexei Velasquez MD. Mark Anthony Frey MD IMG FLUOROSCOPY PROCEDURES Final Result * LIMITED ECHO (TTE) W/ LIMITED DOPPLER, COLOR FLOW AND IMAGING AGENT (08/02/2024 8:58 AM EDT) Anatomical Region Laterality Modality Other 08/02/2024 7:47 AM EDT Narrative 08/02/2024 10:27 AM EDT 1 1 [facility] [address] [address] [phone] (fax) Echocardiogram-[facility] Name: REYNALDO BAKER Study Date: 08/02/2024 07:47 AM B/P: 104 mmHg/46 mmHg HR: 64 bpm Date of : 1940 Location: [facility] Height: 66 in. Age: 84 year(s) Patient Room: 2224 Weight: 131 lb. 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 dose of Lumason Conclusions Left Ventricle: Global left ventricular systolic function [...] to suboptimal imaging Lumason contrast was administered for opacification and better delineation of endocardial borders. Measurements Left Ventricle Label Value Normal Value LVOT VTI 18 cm (18cm - 22cm) LVOT PGmax 2 mmHg LVEF visual 60 % LVOT PGmean 1 mmHg Aortic Valve Label Value Normal Value AV DVI 0.57 AV VTI 30.8 cm Great Vessels Label Value Normal Value IVC 2 cm (1.2cm - 2.3cm) Valvular Assessment LVOT 0.7 - 1.1 m/sec Aortic Valve 1.0 - 1.7 m/sec Mitral Valve 0.6 - 1.3 m/sec Tricuspid Valve 0.3 - 0.7 m/sec Pulmonic Valve 0.6 - 0.9 m/sec Regurgitation No No No Max Velocity 0.74 m/sec 1.29 m/s Max Gradient 7.00 mmHg Mean Gradient 3.00 mmHg Findings Left Ventricle: Global left ventricular systolic function is normal. The EF is 60 % visually. No regional wall motion abnormality. Right Ventricle: Normal right ventricular systolic function. Left Atrium: The left atrium appears normal in size. Right Atrium: The right atrium appears normal in size. Mitral Valve: The mitral valve is normal in mobility and thickness. No mitral regurgitation. Aortic Valve: Bioprosthetic valve appears well seated in the aortic position with normal Doppler flows. No aortic valve regurgitation. There is trivial perivalvular regurgitation. Tricuspid Valve: Normal tricuspid valve. No tricuspid regurgitation. Pulmonic Valve: Pulmonary valve not visualized. Great Vessels: IVC: The IVC is normal in size. There is inspiratory collapse of the IVC. Pericardium: No pericardial effusion. Procedure Staff Reading Group: [facility] Referring Physician: SHAILESH VINSON Photogrammetrist: Darleen Carmona RDCS, RVT, RN, BSN Ordering Physician: LIZZ MAYER Procedure Note Shira Shabazz MD - 08/02/2024 1 1 [facility] Heart Station [address] [place] [address] [phone] (fax) Echocardiogram-[facility] Name: REYNALDO BAKER Study Date: 08/02/2024 07:47 AM B/P: 104 mmHg/46 mmHg HR: 64 bpm Date of : 1940 Location: [facility] Height: 66 in. Age: 84 year(s) Patient Room: 2224 Weight: 131 lb. 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 dose of Lumason Conclusions Left Ventricle: Global left ventricular systolic function [...] to suboptimal imaging Lumason contrast was administered for opacification and better delineation of endocardial borders. Measurements Left Ventricle Label Value Normal Value LVOT VTI 18 cm (18cm - 22cm) LVOT PGmax 2 mmHg LVEF visual 60 % LVOT PGmean 1 mmHg Aortic Valve Label Value Normal Value AV DVI 0.57 AV VTI 30.8 cm Great Vessels Label Value Normal Value IVC 2 cm (1.2cm - 2.3cm) Valvular Assessment LVOT 0.7 - 1.1 m/sec Aortic Valve 1.0 - 1.7 m/sec Mitral Valve 0.6 - 1.3 m/sec Tricuspid Valve 0.3 - 0.7 m/sec Pulmonic Valve 0.6 - 0.9 m/sec Regurgitation No No No Max Velocity 0.74 m/sec 1.29 m/s Max Gradient 7.00 mmHg Mean Gradient 3.00 mmHg Findings Left Ventricle: Global left ventricular systolic function is normal. The EF is 60 % visually. No regional wall motion abnormality. Right Ventricle: Normal right ventricular systolic function. Left Atrium: The left atrium appears normal in size. Right Atrium: The right atrium appears normal in size. Mitral Valve: The mitral valve is normal in mobility and thickness. No mitral regurgitation. Aortic Valve: Bioprosthetic valve appears well seated in the aortic position with normal Doppler flows. No aortic valve regurgitation. There is trivial perivalvular regurgitation. Tricuspid Valve: Normal tricuspid valve. No tricuspid regurgitation. Pulmonic Valve: Pulmonary valve not visualized. Great Vessels: IVC: The IVC is normal in size. There is inspiratory collapse of the IVC. Pericardium: No pericardial effusion. Procedure Staff Reading Group: [facility] Referring Physician: SHAILESH VINSON Photogrammetrist: Darleen Carmona RDCS, RVT, RN, BSN Ordering Physician: LIZZ MAYER us Lizz Mayer RECORDS ANALYST CV ECHO PROCEDURES Final Resu lt * (ABNORMAL) CBC (08/02/2024 4:29 AM EDT) Only the most recent of5 resultswithin the time period is included. Auto WBC 22.16(H) 4.00 - 10.60 10*3/uL 08/02/2024 5:48 AM EDT [facility] ([facility]) RBC 2.92(L) 4.20 - 5.70 10*6/uL 08/02/2024 5:48 AM EDT [facility] ([facility]) Hemoglobin 8.7(L) 13.0 - 17.0 g/dL 08/02/2024 5:48 AM EDT [facility] ([facility]) Hematocrit 27.1(L) 39.0 - 50.0 % 08/02/2024 5:48 AM EDT [facility] ([facility]) MCV 92.8 82.0 - 98.0 fL 08/02/2024 5:48 AM EDT [facility] ([facility]) MCH 29.8 27.0 - 33.0 pg 08/02/2024 5:48 AM EDT [facility] ([facility]) MCHC 32.1 32.0 - 35.0 g/dL 08/02/2024 5:48 AM EDT [facility] ([facility]) RDW 13.1 11.5 - 15.0 % 08/02/2024 5:48 AM EDT [facility] ([facility]) Platelets 195 150 - 400 10*3/uL 08/02/2024 5:48 AM EDT [facility] ([facility]) Blood Venous blood specimen / Unknown Arterial Line / Unknown 08/02/2024 4:29 AM EDT 08/02/2024 4:40 AM EDT us Lizz Mayer [facility] BLOOD ORDERABLES Final Re sult [facility]) [address] [place] [address] * (ABNORMAL) POCT glucose meter (08/01/2024 5:02 PM EDT) Only the most recent of3 resultswithin the time period is included. Glucose POC 174(H) 70 - 105 mg/dL 08/01/2024 5:13 PM EDT [facility]) Comment:[id number] Blood Capillary blood specimen / Unknown 08/01/2024 5:02 PM EDT 08/01/2024 5:13 PM EDT Narrative [facility] ([facility]) - 08/01/2024 5:13 PM EDT Waived Testing in the ED is performed under the ED CLIA certificate #[id number]. Generic Provider Poct LAB BLOOD ORDERABLES Final Result Performing Organization Address [facility]/ZIP Co de Phone Number [facility]) [address], [place] [id number] * (ABNORMAL) APTT (08/01/2024 5:00 PM EDT) aPTT 40.3(H) 25.0 - 35.0 Seconds 08/01/2024 5:36 PM EDT [facility] ([facility]) Comment:Clinical significanc e of the APTT is questionable in the presence of heparin. Blood Venous blood specimen / Unknown Arterial Line / Unknown 08/01/2024 5:00 PM EDT 08/01/2024 5:03 PM EDT Hal Kirkpatrick RECORDS ANALYST LAB BLOOD ORDERABLES Fi nal Result Performing Organization Address [facility] Co de Phone Number [facility]) [address] [place] [address] * (ABNORMAL) Protime-INR (08/01/2024 5:00 PM EDT) Protime 16.6(H) 12.3 - 14.8 Seconds 08/01/2024 5:36 PM EDT [facility] ([facility]) INR 1.35(H) 0.90 - 1.10 08/01/2024 5:36 PM EDT [facility] ([facility]) Comment: [facility] RECOMMENDED INR FOR WARFARIN THERAPY CONDITION INR PROPHYLAXIS OF VENOUS THROMBOSIS 2-3 (HIGH-RISK SURGERY) TREATMENT OF VENOUS THROMBOSIS 2-3 TREATMENT OF PULMONARY EMBOLISM 2-3 PREVENTION OF SYSTEMIC EMBOLISM: 2-3 ACUTE MYOCARDIAL INFARCTION TISSUE HEART VALVES VALVULAR HEART DISEASE ATRIAL FIBRILLATION RECURRENT SYSTEMIC EMBOLISM MECHANICAL HEART VALVE 2.5-3.5 FROM: ORAL ANTICOAGULANTS. MECHANISM OF ACTION, CLINICAL EFFECTIVENESS, AND OPTIMAL THERAPEUTIC RANGE. CHEST 1995;108:231S-246S. Blood Venous blood specimen / Unknown Arterial Line / Unknown 08/01/2024 5:00 PM EDT 08/01/2024 5:03 PM EDT us Hal Kirkpatrick [employer] LAB BLOOD ORDERABLES Fi nal Result Performing Organization Address City/[facility]/ZIP Co de Phone Number [facility]) [address], [place] [id number] * Phosphorus (08/01/2024 5:00 PM EDT) [facility] Phosphorus 3.5 2.5 - 5.0 mg/dL 08/01/2024 5:35 PM EDT [facility] ([facility]) Blood Venous blood specimen / Unknown Arterial Line / Unknown 08/01/2024 5:00 PM EDT 08/01/2024 5:06 PM EDT us Hal Kirkpatrick [employer] LAB BLOOD ORDERABLES Fi nal Result Performing Organization Address City/[facility]/ZIP Co de Phone Number [facility]) [address] [place] [address] * TAVR (08/01/2024 4:03 PM EDT) Anatomical Region Laterality Modality Other Narrative 08/01/2024 4:32 PM EDT INDICATION: Reynaldo Baker is a 84 y.o. male with severe symptomatic stage D3 non-rheumatic aortic valve stenosis. he was evaluated in Cardiology and Cardiothoracic Surgery Clinics, and was deemed appropriate for TAVR as treatment for his aortic valve stenosis. he had shared decision making and agreed to the procedure. he is brought today for that purpose. Due to suboptimal transfemoral access, the procedure was planned be performed via open surgical transcarotid access. PROCEDURES: Successful transcatheter aortic valve replacement using a 29 mm Medtronic Evolut FX+ valve via open surgical transcarotid access. Aortic root angiography. Placement of a temporary pacemaker wire. Balloon aortic valvuloplasty. Left heart catheterization. Access into the right common femoral artery and vein under ultrasound guidance. OPERATORS: Interventional Cardiology Occupational Health Nurse Supervisor: Kimani Spring MD Cardiac Surgery Occupational Health Nurse Supervisor: Mark Anthony Frey MD Dictating Machine Mechanic Interventional Cardiology Occupational Health Nurse Supervisor: Abhay Knutson Interventional Fellow Fellow: Dr. Sander Ware METHODS: Procedure was explained to the patient with risks and benefits. he signed informed consent. he was brought to solar lab technician in a fasting state. The procedure was performed in the cardiac solar lab technician under general anesthesia. Both groin areas, and the right neck area were prepped and draped in usual fashion. Micropuncture technique and ultrasound guidance were used for access in the right common femoral artery and inner cannula angiography was performed followed by upsizing to a 6-Ugandan x 11 cm sheath. The same was done for the access in the right common femoral vein. A 5-Ugandan balloon-tipped pacemaker wire was advanced through the femoral vein sheath to the right ventricular apex and adequate capture was confirmed. Through the right common femoral sheath, an angled 6-Ugandan pigtail catheter was then advanced to the ascending aorta and into the noncoronary cusp. Aortic root angiography was performed in the cusp overlap view as determined by prior CT scan measurements. Surgical cutdown was performed by the cardiothoracic surgeon for exposure of the right common carotid. Heparin was given intravenously and therapeutic ACT confirmed during the rest of the procedure and additional heparin given as needed. Using micropuncture technique, access was obtained in the common carotid artery and a 10-Ugandan x 11 cm sheath was placed. A 6-Ugandan AL1 diagnostic catheter was advanced via the carotid sheath, and using a straight stiff Glidewire, the aortic valve was crossed and the catheter was advanced in the left ventricular cavity, and using an exchange length J-wire, a 6-Ugandan angled pigtail catheter was advanced to make sure no entanglement under mitral valve apparatus. The pigtail catheter was then used to place an exchange length Lunderquist double curve wire. Based on the prior CT scan measurements, we proceeded with a Medtronic Evolut FX+ 29 mm valve. This was prepped using standard technique and checked under fluoroscopy for satisfactory preparation. Balloon aortic valvuloplasty was performed under rapid pacing at 160 bpm using a Tyshak 23 mm balloon. The balloon was retracted. The access sheath was retracted, and using the Medtronic Evolut FX+ valve in-line sheath, we advanced the valve over the wire across the false pass aortic valve, and under pacing at 120 beats per minutes, we started deploying the valve using the cusp overlap view technique. We had to recapture the valve about 4 times in order to achieve optiaml position of the valve relative to the annulus. Angiography at the aortic root showed that the valve was at a good level relative to the aortic annulus. Therefore, we continued deployment to the point of the rumble strips under pacing at 120 beats per minute. Angiography in the left anterior oblique view was performed showing adequate position of the valve. Therefore, we decided to proceed with full deployment. This was performed slowly under pacing at 120 beats per minute. The tabs were released. The delivery system was retracted and removed outside of the body. The 14-Ugandan access sheath was placed across the carotid access and a 6-Ugandan angled pigtail catheter was advanced across the valve into the left ventricular cavity and used to perform left heart catheterization and valvular gradient. There was 2 mm Hg mean transvalvular gradient. Echocardiography was performed showing no perivalvular leak and 1 mmHg mean gradient across the valve and no pericardial effusion. Aortic root angiography was then performed with power injection of contrast showing trivial paravalvular leak and adequate position of the valve with the proximal edge at 6 mm below the annulus. The pigtail catheters were retracted. The carotid access sheath was removed and the carotid arteriotomy was surgically repaired by the surgeon. At this stage, the procedure was concluded. An electrocardiogram was performed showing sinus rhythm and no new changes compared to baseline. Therefore, the temporary pacemaker wire was retracted and removed. Protamine 50 mg was administered at the end of the procedure. The femoral access sheaths were removed an manual compression applied for hemostasis. Distal pulses in the feet were comparable to baseline. he tolerated the procedure well. he was stable throughout the procedure with no apparent complications. he will be transferred to the hospital bed for further management. RECOMMENDATIONS: 1. Clopidogrel 75 mg daily. Eliquis 2.5 mg twice daily to start tomorrow morning. 2. Echocardiogram the next morning. 3. Endocarditis prophylaxis for life after transcatheter aortic valve replacement. 4. Follow up in Cardiology and Cardiac Surgery Clinics in 1 month with echocardiogram. Kimani Spring MD Study Details Nonrheumatic aortic valve stenosis [I35.0] Lizz Mayer CNP CV CARDIAC CATH PROCEDURES Fi nal Result * POC Activated Clotting Time (08/01/2024 3:49 PM EDT) Only the most recent of5 resultswithin the time period is included. POCT ACT 137 82 - 152 seconds QC Pass/Fail Passed QC LOT # [id number] QC Expiration Date 73,125 Blood Venous blood specimen / Unknown 08/01/2024 3:49 PM EDT Narrative Scotty iJ MT - 08/07/2024 8:06 AM EDT Qc lot [id number]; floor press operator [id number] Kimani Spring MD POINT OF CARE TEST ENTER/KARTIK T ORDERABLES Final Result * LIMITED ECHOCARDIOGRAM (TTE) W/ LTD DOPPLER AND COLOR FLOW (08/01/2024 3:33 PM EDT) Anatomical Region Laterality Modality Other 08/01/2024 10:4 4 AM EDT Narrative 08/01/2024 5:24 PM EDT 1 1 [facility] Heart Station [address] [place] [address] [phone] (fax) Echocardiogram-[facility] Name: REYNALDO BAKER Study Date: 08/01/2024 10:44 AM B/P: 183 mmHg/71 mmHg HR: Date of : 1940 Location: [facility] Height: 66 in. Age: 84 year(s) Patient Room: Weight: 131 lb. Gender: Male Patient Status: OutPt BSA: 1.67 m2 Indication: Aortic Valve Stenosis, TAVR procedure; 29 mm Medtronic Evolut FX+ (transcarotid access) Examination: Limited Echo/Limited Doppler, Color flow imaging Image Quality: Fair Patient Consent: Procedure explained to patient Conclusions Left Ventricle: The left ventricle appears normal in size. Global left ventricular systolic function is normal. The EF is 55 % visually. Left ventricular wall thickness is normal. No regional wall motion abnormality. Right Ventricle: The right ventricle appears normal in size. Right ventricular systolic function appears normal. Left Atrium: The left atrium appears normal in size. Aortic Valve: Post TAVR there is a mean gradient of 1 mmHg with no insufficiency noted. Measurements Left Ventricle Label Value Normal Value LVOTd 2.2 cm (19cm - 21cm) LVOT VTI 19.2 cm (18cm - 22cm) LVOT PGmax 2 mmHg LVEF visual 55 % LVDd, 2D 4.38 cm (4.2cm - 5.9cm) LVDs, 2D 3.64 cm (2.1cm - 4cm) IVSd, 2D 0.97 cm (0.6cm - 1.1cm) LVPWd, 2D 0.9 cm (0.6cm - 1cm) LV Mass, 2D ASE 133.81 g LV Mass Index, 2D ASE 80.1 g/m?? (50g/m?? - 102.4g/m??) RWT, MM 0.41 (0 - 0.42) LVSVI, 2D 18.6 ml/m2 LVOT PGmean 1 mmHg LVSV_LVOT 73 ml Aortic Valve Label Value Normal Value AV DVI 0.88 AV VTI 19.3 cm Valvular Assessment LVOT 0.7 - 1.1 m/sec Aortic Valve 1.0 - 1.7 m/sec Mitral Valve 0.6 - 1.3 m/sec Tricuspid Valve 0.3 - 0.7 m/sec Pulmonic Valve 0.6 - 0.9 m/sec Max Velocity 0.67 m/sec 0.76 m/s Max Gradient 2.00 mmHg Mean Gradient 1.00 mmHg Valve Area 3.4 cm?? Findings Left Ventricle: The left ventricle appears normal in size. Global left ventricular systolic function is normal. The EF is 55 % visually. Left ventricular wall thickness is normal. No regional wall motion abnormality. Right Ventricle: The right ventricle appears normal in size. Right ventricular systolic function appears normal. Left Atrium: The left atrium appears normal in size. Right Atrium: The right atrium appears normal in size. Mitral Valve: Mitral valve appears normal. Aortic Valve: Post TAVR there is a mean gradient of 1 mmHg with no insufficiency noted. Tricuspid Valve: Tricuspid valve appears normal. Pulmonic Valve: Pulmonic valve is poorly visualized. Aorta: The aortic root exhibits normal size. Great Vessels: IVC: The inferior vena cava is poorly visualized. Pericardium: No pericardial effusion. Procedure Staff Reading Group: [facility] Photogrammetrist: Divina Priest RDCS Ordering Physician: LIZZ MAYER Procedure Note Shira Shabazz MD - 08/01/2024 1 1 [facility] Heart Station [address] [address] [phone] (fax) Echocardiogram-[facility] Name: REYNALDO BAKER Study Date: 08/01/2024 10:44 AM B/P: 183 mmHg/71 mmHg HR: Date of : 1940 Location: [facility] Height: 66 in. Age: 84 year(s) Patient Room: Weight: 131 lb. Gender: Male Patient Status: OutPt BSA: 1.67 m2 Indication: Aortic Valve Stenosis, TAVR procedure; 29 mm Medtronic Evolut FX+ (transcarotid access) Examination: Limited Echo/Limited Doppler, Color flow imaging Image Quality: Fair Patient Consent: Procedure explained to patient Conclusions Left Ventricle: The left ventricle appears normal in size. Global left ventricular systolic function is normal. The EF is 55 % visually. Left ventricular wall thickness is normal. No regional wall motion abnormality. Right Ventricle: The right ventricle appears normal in size. Right ventricular systolic function appears normal. Left Atrium: The left atrium appears normal in size. Aortic Valve: Post TAVR there is a mean gradient of 1 mmHg with no insufficiency noted. Measurements Left Ventricle Label Value Normal Value LVOTd 2.2 cm (19cm - 21cm) LVOT VTI 19.2 cm (18cm - 22cm) LVOT PGmax 2 mmHg LVEF visual 55 % LVDd, 2D 4.38 cm (4.2cm - 5.9cm) LVDs, 2D 3.64 cm (2.1cm - 4cm) IVSd, 2D 0.97 cm (0.6cm - 1.1cm) LVPWd, 2D 0.9 cm (0.6cm - 1cm) LV Mass, 2D ASE 133.81 g LV Mass Index, 2D ASE 80.1 g/m?? (50g/m?? - 102.4g/m??) RWT, MM 0.41(0 - 0.42) LVSVI, 2D 18.6 ml/m2 LVOT PGmean 1 mmHg LVSV_LVOT 73 ml Aortic Valve Label Value Normal Value AV DVI 0.88 AV VTI 19.3 cm Valvular Assessment LVOT 0.7 - 1.1 m/sec Aortic Valve 1.0 - 1.7 m/sec Mitral Valve 0.6 - 1.3 m/sec Tricuspid Valve 0.3 - 0.7 m/sec Pulmonic Valve 0.6 - 0.9 m/sec Max Velocity 0.67 m/sec 0.76 m/s Max Gradient 2.00 mmHg Mean Gradient 1.00 mmHg Valve Area 3.4 cm?? Findings Left Ventricle: The left ventricle appears normal in size. Global left ventricular systolic function is normal. The EF is 55 % visually. Left ventricular wall thickness is normal. No regional wall motion abnormality. Right Ventricle: The right ventricle appears normal in size. Right ventricular systolic function appears normal. Left Atrium: The left atrium appears normal in size. Right Atrium: The right atrium appears normal in size. Mitral Valve: Mitral valve appears normal. Aortic Valve: Post TAVR there is a mean gradient of 1 mmHg with no insufficiency noted. Tricuspid Valve: Tricuspid valve appears normal. Pulmonic Valve: Pulmonic valve is poorly visualized. Aorta: The aortic root exhibits normal size. Great Vessels: IVC: The inferior vena cava is poorly visualized. Pericardium: No pericardial effusion. Procedure Staff Reading Group: [facility] Photogrammetrist: Divina Priest RDCS Ordering Physician: LIZZ MAYER Lizz Mayer [facility] CV ECHO PROCEDURES Final Resu lt * (ABNORMAL) Arterial blood gas with ionized calcium (08/01/2024 1:52 PM EDT) pH, Arterial 7.46(H) 7.35 - 7.45 pH 08/01/2024 1:55 PM EDT [facility] RESPIRATORY THERAPY pCO2, Arterial 34(L) 35 - 48 mmHg 08/01/2024 1:55 PM EDT [facility] RESPIRATORY THERAPY pO2, Arterial 300(H) 83 - 100 mmHg 08/01/2024 1:55 PM EDT [facility] RESPIRATORY THERAPY HCO3, Arterial 24.2 21.0 - 28.0 mEq/L 08/01/2024 1:55 PM EDT [facility] RESPIRATORY THERAPY Calcium, Ion 1.19 1.15 - 1.33 mmol/L 08/01/2024 1:55 PM EDT [facility] RESPIRATORY [facility] O2 Sat, Arterial 98.9(H) 94.0 - 98.0 % 08/01/2024 1:55 PM EDT [facility] RESPIRATORY [facility] Base Excess, Arterial 0.8 -2.0 - 3.0 mmol/L 08/01/2024 1:55 PM EDT [facility] RESPIRATORY THERAPY Source Of Oxygen Vent 08/01/2024 1:55 PM EDT [facility] RESPIRATORY [facility] Blood Arterial blood specimen / Unknown Arterial Puncture / Unknown 08/01/2024 1:52 PM EDT 08/01/2024 1:52 PM EDT Narrative [facility] RESPIRATORY THERAPY - 08/01/2024 1:55 PM EDT labor contractor us Bebeto Rangel MD LAB BLOOD ORDERABLES Final R esult [facility] RESPIRATORY THERAPY [address] [place] [address], * Type and screen (08/01/2024 1:49 PM EDT) ABO Grouping A 08/01/2024 2:54 PM EDT [facility] BLOOD BANK Rh Type POS 08/01/2024 2:54 PM EDT [facility] BLOOD BANK Ab Scrn NEG 08/01/2024 2:54 PM EDT [facility] BLOOD BANK Blood Venous blood specimen / Unknown Venipuncture / Unknown 08/01/2024 1:49 PM EDT 08/01/2024 1:49 PM EDT Bebeto Rangel MD LAB BLOOD BANK TEST ORDERABL ES Final Result [facility] BLOOD BANK * NV AN ELECTIVE ENDOTRACHEAL AIRWAY (08/01/2024 1:29 PM EDT) Narrative Bebeto Rangel MD - 08/01/2024 1:29 PM EDT Regino Brewer MD 08/01/2024 1:43 PM Airway Date/Time: 08/01/2024 1:29 PM Urgency: elective Airway not difficult General Information and Staff Patient location during procedure: [place] Anesthesiologist: Bebeto Rangel MD Resident/PROJECT MANAGEMENT DIRECTOR/CAA: Regino Brewer MD Performed: resident/PROJECT MANAGEMENT DIRECTOR/CAA Indications and Patient Condition Indications for airway management: anesthesia Spontaneous Ventilation: absent Sedation level: deep Preoxygenated: yes Mask difficulty assessment: 1 - vent by mask Final Airway Details Final airway type: endotracheal airway Successful airway: ETT Cuffed: yes Successful intubation technique: video laryngoscopy Facilitating devices/methods: intubating stylet Endotracheal tube insertion site: oral Blade: Plascencia Blade size: #3 ETT size (mm): 7.5 Cormack-Lehane Classification: grade I - full view of glottis Placement verified by: chest auscultation and capnometry Measured from: lips ETT to lips (cm): 22 Number of attempts at approach: 1 Number of other approaches attempted: 0 Bebeto Rangel MD ANESTHESIA ORDERABLES Final Result * ANESTHESIA ARTERIAL LINE PLACEMENT (08/01/2024 1:00 PM EDT) Narrative Bebeto Rangel MD - 08/01/2024 1:00 PM EDT Bebeto Rangel MD 08/01/2024 2:17 PM Arterial Line: Date/Time: 08/01/2024 1:00 PM An arterial line was placed Procedure performed using ultrasound guidance.in the pre-op for the following indication(s): continuous blood pressure monitoring and blood sampling needed. A 20 G (size), 1 and 3/4 inch (length), Arrow (type) catheter was placed, Seldinger technique used , into the Left radial artery, secured by tape and Tegaderm. Events: patient tolerated procedure well with no complications. Additional notes: Sterile precautions used, including, if applicable: Gown, Gloves, Hat, Mask, Skin prep, Sterile drape, And / or Ultrasound probe cover. VSS. Staffing Performed: resident/PROJECT MANAGEMENT DIRECTOR/CAA Anesthesiologist: Bebeto Rangel MD Resident/PROJECT MANAGEMENT DIRECTOR: Regino Brewer MD Performed by: Regino Brewer MD Authorized by: Bebeto Rangel MD us Bebeto Rangel MD ANESTHESIA ORDERABLES Final Result * CARDIAC DEVICE CHECK - REMOTE - LOOP RECORDER (ILR) (07/28/2024 9:56 AM EDT) Only the most recent of3 resultswithin the time period is included. Jez Martin MD CV IMPLANTABLE CARDIAC DEVICE NV OCEDURES Final Result CPACS * Cardiac device check - Remote loop recorder (ILR) (07/18/2024 12:00 AM EDT) Anatomical Region Laterality Modality Other 07/18/2024 Jez Martin MD CV IMPLANTABLE CARDIAC DEVICE NV OCEDURES Final Result * (ABNORMAL) Hemoglobin and hematocrit, blood (06/29/2024 11:10 PM EDT) Only the most recent of6 resultswithin the time period is included. Hemoglobin 8.9(L) 13.0 - 17.0 g/dL 06/29/2024 11:57 PM EDT [facility] ([facility]) Hematocrit 27.7(L) 39.0 - 50.0 % 06/29/2024 11:57 PM EDT [facility]) Blood Venous blood specimen / Unknown Arterial Line / Unknown 06/29/2024 11:10 PM EDT 06/29/2024 11:32 PM EDT Mert Oglesby MD LAB BLOOD ORDERABLES Final Res ult [facility] ([place]) [address] [place] [address] * Bronchoscopy (06/29/2024 4:09 PM EDT) Anatomical Region Laterality Modality Other Narrative 06/29/2024 4:25 PM EDT Images from the original result were not included. Flexible fiberoptic bronchoscopy Pre-op Diagnosis: Hemoptysis Post-op Diagnosis: Tracheal abrasion Procedure: 1. Flexible fiberoptic bronchoscopy Bronchoscopist: Paul Mayen MD Anesthesia: MAC Indications and History (Please see today's progress notes for the latest issues, physical exam and lab data) Consent to Procedure The risks, benefits, complications, treatment options and expected outcomes were discussed with patient. The possibilities of reaction to medication, pulmonary aspiration, perforation of a viscus, bleeding, failure to diagnose a condition and creating a complication requiring transfusion or operation were discussed with the patient and/or POA who freely signed the consent. Description of Procedure A Time Out was held and the above information confirmed. Patient replaced on 6 L/min of nasal cannula oxygen. The bronchoscope was then passed into the mouth after placing a bite block. Lidocaine 1% solution 2 mL at a time was applied topically to the cub[place]. After careful inspection of the tracheal, the bronchoscope was sequentially passed into all segments of right and left endobronchial trees to the second and/or third divisions. Endobronchial findings Noted right vocal cord abrasion. Multiple abrasions on membranous trachea noted. Blood was suctioned from bilateral lower lobes, no active bleeding noted from the bronchial tree. Abrasions noted in bronchus intermedius. Estimated Blood Loss: None Complications None Specimens Obtained: None Impression/Plan: - Hemoptysis, secondary to tracheal and right bronchus intermedius abrasions. Suspect trauma from GEORGE probe. - No significant active bleeding noted. - Obtain chest x-ray - Return to the floor, recommend observation overnight. Can be discharged tomorrow if no more significant bleeding. Paul Mayen MD Pulmonary & Critical Care Medicine 4:21 PM 06/29/24 us Paul Mayen MD ENDOSCOPY PROCEDURE ORDERABLES Final Result * (ABNORMAL) Iron and TIBC (06/29/2024 11:06 AM EDT) Iron 40(L) 50 - 212 ug/dL 06/29/2024 11:53 AM EDT [facility] ([facility]) TIBC 227(L) 250 - 450 ug/dL 06/29/2024 11:53 AM EDT [facility] ([facility]) Iron Saturation 18(L) 20 - 50 % 11:53 AM EDT [facility] ([facility]) UIBC 187.0 155.0 - 355.0 ug/dL 06/29/2024 11:53 AM EDT [facility]) Blood Venous blood specimen / Unknown Arterial Line / Unknown 06/29/2024 11:06 AM EDT 06/29/2024 11:24 AM EDT us Mert Oglesby MD LAB BLOOD ORDERABLES Final Res ult [facility]) [address] [place] [address] * Transferrin (06/29/2024 11:06 AM EDT) Transferrin 195 168 - 348 mg/dL 06/29/2024 11:53 AM EDT [facility]) Blood Venous blood specimen / Unknown Arterial Line / Unknown 06/29/2024 11:06 AM EDT 06/29/2024 11:24 AM EDT us Mert Oglesby MD LAB BLOOD ORDERABLES Final Res ult [facility]) [address] [place] [address] * Folate (06/29/2024 11:06 AM EDT) Folate 7.77 6.6 - 1,000 ng/mL 06/29/2024 12:18 PM EDT [facility]) Blood Venous blood specimen / Unknown Arterial Line / Unknown 06/29/2024 11:06 AM EDT 06/29/2024 11:24 AM EDT Mert Oglesby MD LAB BLOOD ORDERABLES Final Res ult [facility]) [address] [place] [address] * Ferritin (06/29/2024 11:06 AM EDT) Ferritin 168.0 24.0 - 336.0 ng/mL 06/29/2024 12:18 PM EDT [facility] ([facility]) Blood Venous blood specimen / Unknown Arterial Line / Unknown 06/29/2024 11:06 AM EDT 06/29/2024 11:24 AM EDT Mert Oglesby MD LAB BLOOD ORDERABLES Final Res ult Performing Organization Address City/[facility]/ZIP Co de Phone Number [facility]) [address] [place] [address] * Vitamin B12 (06/29/2024 11:06 AM EDT) Pathologist [facility] Vitamin B-12 373 180 - 914 pg/mL 06/29/2024 12:18 PM EDT [facility]) Comment: REFERENCE RANGES: 180-914 pg/mL Normal 145-179 pg/mL Indeterminate <145 pg/mL Deficient Blood Venous blood specimen / Unknown Arterial Line / Unknown 06/29/2024 11:06 AM EDT 06/29/2024 11:24 AM EDT Mert Oglesby MD LAB BLOOD ORDERABLES Final Res ult [facility]) [address] [place] [address] * PERC CORONARY INTERVENTION (06/27/2024 4:24 PM EDT) Anatomical Region Laterality Modality Other Narrative 06/27/2024 5:04 PM EDT PROCEDURE PHYSICIAN: Kimani Spring MD . Indications: Reynaldo Baker is a 84 y.o. male who has complex medical history including severe coronary artery disease, severe nonrheumatic aortic valve stenosis and is being considered for TAVR. He is brought today for revascularization of his coronary artery disease percutaneously. Assistants: Dr Sander Ware. Procedure Performed: Successful balloon angioplasty and drug [...] the left radial artery under ultrasound guidance. Methods: Procedure was explained to the patient with risks and benefits; he signed informed consent. he was brought to the solar lab technician in a fasting state. The left wrist area was prepped and draped in usual fashion. Micropuncture technique was used for access in the left radial artery. A 5-Ugandan x 11 cm sheath was placed. Verapamil was given through the sheath, and heparin was administered intravenously. Heparin was administered intravenously and therapeutic ACT was confirmed during the rest of the procedure. A 5-Ugandan XB 3.5 LBT guiding catheter was advanced and used to engage the left coronary ostium. Baseline ANGELINA flow was 3. A 8aweek coronary guide wire was advanced to the distal first obtuse marginal branch coronary artery. A NC 2.0 x 15 mm Emerge non-compliant balloon was advanced and used to performed balloon angioplasty at the site of the stenosis in the proximal first OM branch with inflations up to 14 Braxton. The balloon was retracted. Angiography was performed. A Synergy XD 2.25 x 16 mm drug-eluting stent was advanced and deployed at 11 Braxton across the stenosis. Intracoronary nitroglycerin was administered followed by angiography which revealed excellent result with reduction of the stenosis to 0%, no evidence of dissection or perforation and ANGELINA 3 flow in the coronary artery and branches. The wire was retracted and advanced to the distal 2nd OM branch. Baseline ANGELINA flow was 3. A NC 2.0 x 15 mm balloon was advanced and used to performed balloon angioplasty at the site of the proximal stenosis with inflations up to 12 Braxton. The balloon was retracted. Intracoronary nitroglycerine was administered. Angiography was performed, This showed reduction of the stenosis in the proximal second obtuse marginal branch to 30%. There was ANGELINA-3 flow with no evidence of dissection or perforation. A second Prowater wire was advanced into the distal LAD and the first Prowater wire was removed. Balloon dilatation in the mid LAD was then performed using a NC Emerge 2.5 x 8 mm noncompliant balloon inflated at 12 braxton repeatedly. This was followed by advancement and deployment of a Synergy XD 2.5 x 12 mm drug-eluting stent deployed at 11 braxton. Intracoronary nitroglycerin was administered followed by angiography which revealed excellent result with reduction of the stenosis to 0%, no evidence of dissection or perforation and ANGELINA 3 flow in the coronary artery and branches. The guiding catheter and wire were removed. The patient was loaded with clopidogrel 600 mg at the beginning of the procedure. Hemostasis was achieved by TR band in the radial artery. he tolerated the procedure well and was transferred back to the cardiovascular recovery area. Hemodynamic Data: AO: 196/79 (129) Coronary angiography: LAD: This is a moderate caliber vessel. It has diffuse calcifications throughout its course. There is a 60 to 70% stenosis in the proximal segment. The mid segment has a 90% stenosis which was reduced to 0% by a Synergy XD drug-eluting stent. The apical LAD has serial 90% stenoses and is of very small caliber. Circumflex vessel: This is a moderate caliber vessel. The first obtuse marginal branch has a 90% stenosis which was reduced to 0% by a Synergy XD drug-eluting stent. The second obtuse marginal branch has a proximal 90% stenosis which was reduced to 30% by balloon angioplasty. The mid segment of the vessel has diffuse 60% stenosis and the distal vessel is of small caliber. The caliber of the vessel was thought to be not large enough to be able to accommodate a drug-eluting stent. Given adequate angioplasty resulted in the proximal segment we decided not to deploy a stent. Plan: Post intervention the patient will be maintained on aspirin 81 mg daily and clopidogrel 75 mg daily. Eliquis can be resumed tomorrow night. Given triple therapy and to reduce the risk of bleeding, aspirin will be stopped after 1 week and the patient will be continued on dual therapy with clopidogrel 75 mg daily and Eliquis. The patient will be scheduled at a later date for TAVR to treat his nonrheumatic aortic valve stenosis. 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 [I25.119], Nonrheumatic aortic valve stenosis [I35.0] Lizz Mayer CNP CV CARDIAC CATH PROCEDURES Fi nal Result * ECHO ABORTED PROCEDURE (06/27/2024 10:30 AM EDT) Anatomical Region Laterality Modality Other 06/27/2024 10:0 6 AM EDT Narrative 06/27/2024 12:46 PM EDT [facility] Heart Station [address] [place] [address] [phone] (fax) Transesophageal Echocardiogram-[facility] Name: REYNALDO BAKER Study Date: 06/27/2024 10:06 AM B/P: 170 mmHg/89 mmHg HR: 64 bpm Date of : 1940 Location: [facility] Height: 66 in. Age: 84 year(s) Patient Room: [facility] Weight: 136 lb. Gender: Male Patient Status: OutPt BSA: 1.7 m2 Indication: Severe aortic stenosis Examination: Aborted Patient Consent: Informed, written consent was obtained for the procedure Exam Location: Unable to perform GEORGE Anesthesia Pharyngeal anesthesia with viscous Lidocaine Conclusions Overall Conclusions: Unable to pass GEORGE probe Medications Date Time Name Route Form Dose Units Ordered By Given By Comment 06/27/2024 10:33 AM Midazolam HCL (Versed) 4 milligrams 06/27/2024 10:33 AM Fentanyl (Opiates) 50 micrograms Procedure Staff Reading Group: [facility] Referring Physician: SHAILESH VINSON Photogrammetrist: JODI Ponce Ordering Physician: LIZZ MAYER Procedure Note Shira Shabazz MD - 06/27/2024 1 [facility] Heart Station [address] [place] [address] [phone] (fax) Transesophageal Echocardiogram-[facility] Name: REYNALDO BAKER Study Date: 06/27/2024 10:06 AM B/P: 170 mmHg/89 mmHg HR: 64 bpm Date of : 1940 Location: [facility] Height: 66 in. Age: 84 year(s) Patient Room: [facility] Weight: 136 lb. Gender: Male Patient Status: OutPt BSA: 1.7 m2 Indication: Severe aortic stenosis Examination: Aborted Patient Consent: Informed, written consent was obtained for the procedure Exam Location: Unable to perform GEORGE Anesthesia Pharyngeal anesthesia with viscous Lidocaine Conclusions Overall Conclusions: Unable to pass GEORGE probe Medications Date Time Name Route Form Dose Units Ordered By Given By Comment 06/27/2024 10:33 AM Midazolam HCL (Versed) 4 milligrams 06/27/2024 10:33 AM Fentanyl (Opiates) 50 micrograms Procedure Staff Reading Group: [facility] Referring Physician: SHAILESH VINSON Photogrammetrist: JODI Ponce Ordering Physician: LIZZ MAYER us Lizz Mayer RECORDS ANALYST CV ECHO PROCEDURES Final Resu lt * CTA Chest W IV Contrast (06/06/2024 1:10 PM EDT) Anatomical Region Laterality Modality Body, Chest Computed Tomogra phy 06/11/2024 2:55 PM EDT Impressions 06/11/2024 3:09 PM EDT Calcified small pleural plaques bilaterally with no acute pulmonary pathology appreciated. Atherosclerotic disease and vascular calcifications. Total calcium scoring of the aortic cusp of 1414 and grade 3 calcification seen. T aVR measurements suggest valve diameter of 26 mm with the measurements listed above. Electronically signed: Mendoza Rodriguez MD. Narrative 06/11/2024 3:09 PM EDT CTA CHEST W IV CONTRAST 06/06/2024 12:27 PM CLINICAL INDICATIONS: None rheumatic Aortic valve stenosis. Pre-T aVR evaluation. PROTOCOL: Chest CTA CONTRAST: 100 mL Omnipaque 350 TECHNIQUE: Multidetector CT axial slices of the chest were obtained with IV contrast. Multiplanar reformats were performed and viewed on a separate workstation and reviewed to further define anatomy and possible pathology. All CT scans at this facility use dose modulation, iterative reconstruction, and/or weight based dosing when appropriate to reduce radiation dose to as low as reasonably achievable. COMPARISON: None. FINDINGS: Lower neck: Thyroid gland within normal limits, no supraclavicle adenopathy. Vessels: Pulmonary arteries are Within normal limits. Mild to moderate atherosclerotic changes in the aorta. and coronary arteries. Mediastinum and Mary Beth: Within normal limits. Heart: Normal size. No pericardial effusion. Airways: Layering soft tissue density is which is heterogeneous within the inferior trachea likely represent accumulated secretions. Otherwise, unremarkable airway Lungs: Visualized part of the lungs appear well aerated and grossly unremarkable. Mild centrilobular upper lobe emphysematous changes. Pleura: Calcified small pleural plaques are seen bilaterally. Chest Wall: Within normal limits. Upper Abdomen: Please refer to abdomen CT report for full details from the same day. Bones: Diffuse idiopathic skeletal hyperostosis in the lower thoracic spine. Calcium scoring Gated noncontrast calcium scoring part of the study revealed coarse grade 3 aortic cusp calcification and total calcium scoring of 1440. T aVR measurements: 3-D volume rendered images of the aortic root and coronal reconstruction of the aortic root and ascending aorta. Localization of the left coronary cusp, right cusp and noncoronary cusp in axial images and localization of the esophagus and axial and 3-D volume rendered images. 3-D volume rendered images of the aortic root are obtained in anterior projection, no IMAGING SCHEDULER-CAU views. The annulus measures 29.9 x 23.3 mm in dimension with surface area of 4.93 squared centimeter and perimeter of 83 mm. Embedded geometry suggests valve diameter of 26 mm. Height of the left coronary artery is 14.6 mm from the annulus and right coronary artery is 15.5 mm from the annulus. Diameter of the left coronary sinus is 30.9 mm, right sinus 27.2 mm and noncoronary sinus 27.3 mm. Diameter of the sinotubular junction is 22 mm and endovascular stent graft is 25.3 mm. Diameter of the right common iliac artery is 6.9 mm, right external iliac artery is 6.5 mm and right femoral artery 4.2 mm with significant vascular calcification seen. Diameter of the left common iliac artery is 6.8 mm, left external iliac artery is 6.8 mm and left femoral artery is 4 mm with vascular calcification seen. 3-D volume rendered images revealed mild tortuosity of the common and external iliac arteries bilaterally. Procedure Note Mendoza Rodriguez MD - 06/11/2024 CTA CHEST W IV CONTRAST 06/06/2024 12:27 PM CLINICAL INDICATIONS: None rheumatic Aortic valve stenosis. Pre-T aVR evaluation. PROTOCOL: Chest CTA CONTRAST: 100 mL Omnipaque 350 TECHNIQUE: Multidetector CT axial slices of the chest were obtained withIV contrast. Multiplanar reformats were performed and viewed on a separate workstation and reviewed to further define anatomy and possible pathology. All CT scans at this facility use dose modulation, iterativereconstruction, and/or weight based dosing when appropriate to reduce radiation dose to aslow as reasonably achievable. COMPARISON: None. FINDINGS: Lower neck: Thyroid gland within normal limits, no supraclavicleadenopathy. Vessels: Pulmonary arteries are Within normal limits. Mild to moderate atherosclerotic changes in the aorta. and coronary arteries. Mediastinum and Mary Beth: Within normal limits. Heart: Normal size. No pericardial effusion. Airways: Layering soft tissue density is which is heterogeneous withinthe inferior trachea likely represent accumulated secretions. Otherwise, unremarkable airway Lungs: Visualized part of the lungs appear well aerated and grossly unremarkable. Mild centrilobular upper lobe emphysematous changes. Pleura: Calcified small pleural plaques are seen bilaterally. Chest Wall: Within normal limits. Upper Abdomen: Please refer to abdomen CT report for full details from . Bones: Diffuse idiopathic skeletal hyperostosis in the lower thoracicspine. Calcium scoring Gated noncontrast calcium scoring part of the study revealed coarse grade3 aortic cusp calcification and total calcium scoring of 1440. T aVR measurements: 3-D volume rendered images of the aortic root and coronal reconstructionof the aortic root and ascending aorta. Localization of the left coronary cusp, right cusp and noncoronary cusp inaxial images and localization of the esophagus and axial and 3-D volumerendered images. 3-D volume rendered images of the aortic root are obtained in anterior projection, no IMAGING SCHEDULER-CAU views. The annulus measures 29.9 x 23.3 mm in dimension with surface area of4.93 squared centimeter and perimeter of 83 mm. Embedded geometry suggests valve diameter of 26 mm. Height of the left coronary artery is 14.6 mm from the annulus and right coronary artery is 15.5 mm from the annulus. Diameter of the left coronary sinus is 30.9 mm, right sinus 27.2 mm and noncoronary sinus 27.3 mm. Diameter of the sinotubular junction is 22 mm and endovascular stent graftis 25.3 mm. Diameter of the right common iliac artery is 6.9 mm, right external iliacartery is 6.5 mm and right femoral artery 4.2 mm with significant vascular calcification seen. Diameter of the left common iliac artery is 6.8 mm, left external iliacartery is 6.8 mm and left femoral artery is 4 mm with vascular calcificationseen. 3-D volume rendered images revealed mild tortuosity of the common andexternal iliac arteries bilaterally. IMPRESSION: Calcified small pleural plaques bilaterally with no acute pulmonarypathology appreciated. Atherosclerotic disease and vascular calcifications. Total calcium scoringof the aortic cusp of 1414 and grade 3 calcification seen. T aVR measurements suggest valve diameter of 26 mm with the measurementslisted above. Electronically signed: Mendoza Rodriguez MD. Lizz Mayer CNP [facility] [place] PROCEDURES Final Resul t * CTA Abdomen Pelvis W IV Contrast (06/06/2024 1:10 PM EDT) Anatomical Region Laterality Modality Body, Pelvis, Abdomen Computed T omography 06/11/2024 2:36 PM EDT Impressions 06/11/2024 2:55 PM EDT Hepatic steatosis and suggestion of prior cholecystectomy. Uncomplicated diverticulosis. Infrarenal abdominal aortic aneurysm with endovascular stent graft in place. Small inguinal hernia containing small part of bowel loop without evidence of obstruction. 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 Lower lumbar spondylosis. Electronically signed: Mendoza Rodriguez MD. Narrative 06/11/2024 2:55 PM EDT CTA ABDOMEN PELVIS W IV CONTRAST 06/06/2024 12:27 PM CLINICAL INDICATIONS: Stenosis. Pre-T aVR evaluation. PROTOCOL: CTA abdomen and pelvis CONTRAST: 100 mL Omnipaque 350 TECHNIQUE: Multidetector CT angiography axial slices of the abdomen and pelvis were obtained with IV contrast. Multiplanar reformats, MIP, and volume rendered 3-D images were generated on a separate workstation and reviewed to further define anatomy and possible pathology. All CT scans at this facility use dose modulation, iterative reconstruction, and/or weight based dosing when appropriate to reduce radiation dose to as low as reasonably achievable. COMPARISON: None. FINDINGS: Lower Chest: Please refer to chest CT report for full details. ABDOMEN: Liver: Visualized part of the liver revealed diffuse diminished attenuation suggesting hepatic steatosis with no focal lesions. Bile Ducts: Normal caliber. Gallbladder: Absent gallbladder likely from prior cholecystectomy. Pancreas: Within normal limits. Spleen: Within normal limits. Adrenals: Within normal limits. Kidneys: Bilateral symmetric nephrogram with small bilateral low-attenuation lesions likely represent simple renal cysts which are too small to accurately characterize by Hounsfield unit measurements. No specific follow-up is required. Pelvis: Reproductive Organs: Coarse prostatic calcifications are visualized. Metallic clips in the scrotum bilaterally likely from prior vasectomy. Few calcified phlebolith in the pelvis. Ureters: Within normal limits. Bladder: Within normal limits. Bowel: Normal caliber. Uncomplicated colonic diverticulosis. Mesenteric Lymph Nodes: No enlarged mesenteric lymph nodes. Peritoneum: No ascites or free air, no fluid collection. Vessels: Atherosclerotic changes with vascular calcification and abdominal aortic aneurysm with maximum diameter of 5.3 cm and evidence of endovascular aortic biiliac stent graft which is patent. The aneurysm is infrarenal.. Retroperitoneum: Within normal limits. Abdominal Wall: Small right inguinal hernia containing small piece of bowel loop without evidence of obstruction. Bones: Right femur intramedullary saira with compression screws seen and metallic artifacts. There is coarsened trabeculae of the left iliac bone with thickened cortex consistent with Paget's disease. Facet joint disease and mild anterolisthesis at L4-5 level with Schmorl's nodes at the superior endplate of L2 and mild wedging seen. Procedure Note Mendoza Rodriguez MD - 06/11/2024 CTA ABDOMEN PELVIS W IV CONTRAST 06/06/2024 12:27 PM CLINICAL INDICATIONS: Stenosis. Pre-T aVR evaluation. PROTOCOL: CTA abdomen and pelvis CONTRAST: 100 mL Omnipaque 350 TECHNIQUE: Multidetector CT angiography axial slices of the abdomen andpelvis were obtained with IV contrast. Multiplanar reformats, MIP, and volumerendered 3-D images were generated on a separate workstation and reviewed tofurther define anatomy and possible pathology. All CT scans at this facility use dose modulation, iterativereconstruction, and/or weight based dosing when appropriate to reduce radiation dose to aslow as reasonably achievable. COMPARISON: None. FINDINGS: Lower Chest: Please refer to chest CT report for full details. ABDOMEN: Liver: Visualized part of the liver revealed diffuse diminishedattenuation suggesting hepatic steatosis with no focal lesions. Bile Ducts: Normal caliber. Gallbladder: Absent gallbladder likely from prior cholecystectomy. Pancreas: Within normal limits. Spleen: Within normal limits. Adrenals: Within normal limits. Kidneys: Bilateral symmetric nephrogram with small bilaterallow-attenuation lesions likely represent simple renal cysts which are too small toaccurately characterize by Hounsfield unit measurements. No specific follow-up isrequired. Pelvis: Reproductive Organs: Coarse prostatic calcifications are visualized.Metallic clips in the scrotum bilaterally likely from prior vasectomy. Fewcalcified phlebolith in the pelvis. Ureters: Within normal limits. Bladder: Within normal limits. Bowel: Normal caliber. Uncomplicated colonic diverticulosis. Mesenteric Lymph Nodes: No enlarged mesenteric lymph nodes. Peritoneum: No ascites or free air, no fluid collection. Vessels: Atherosclerotic changes with vascular calcification andabdominal aortic aneurysm with maximum diameter of 5.3 cm and evidence ofendovascular aortic biiliac stent graft which is patent. The aneurysm is infrarenal.. Retroperitoneum: Within normal limits. Abdominal Wall: Small right inguinal hernia containing small piece ofbowel loop without evidence of obstruction. Bones: Right femur intramedullary saira with compression screws seen andmetallic artifacts. There is coarsened trabeculae of the left iliac bone withthickened cortex consistent with Paget's disease. Facet joint disease and mild anterolisthesis at L4-5 level with Schmorl's nodes at the superiorendplate of L2 and mild wedging seen. IMPRESSION: Hepatic steatosis and suggestion of prior cholecystectomy. Uncomplicated diverticulosis. Infrarenal abdominal aortic aneurysm with endovascular stent graft inplace. Small inguinal hernia containing small part of bowel loop without evidenceof obstruction. 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 Lower lumbar spondylosis. Electronically signed: Mendoza Rodriguez MD. Lizz Mayer RECORDS ANALYST IMG CT PROCEDURES Final Resul t * EGD w Dilation (05/30/2024 2:03 PM EDT) Anatomical Region Laterality Modality Other Narrative 06/07/2024 2:54 PM EDT Table formatting from the original result was not included. Esophagogastroduodenoscopy (EGD) Procedure Note Procedure: EGD with biopsies Indications: Dysphagia Sedation: MAC Medications: lactated Ringer's infusion 467 mL* *From user-documented volume (Totals for administrations occurring from 1334 to 1404 on 05/30/24) Attending Physician: La Nena Brennan MD Dictating Machine Mechanic: Duane Kimble MD Procedure Details: Informed consent was obtained for the procedure, including sedation. Risks of infection, perforation, hemorrhage, adverse drug reaction, and aspiration were discussed. The patient was placed in the left lateral decubitus position. The patient was monitored continuously with ECG tracing, pulse oximetry, blood pressure monitoring, and direct observation. The gastroscope was inserted into the mouth and advanced under direct vision to second portion of the duodenum. A careful inspection was made as the gastroscope was withdrawn, including a retroflexed view of the proximal stomach; findings and interventions are described below. Appropriate photodocumentation was obtained. Specimens: ID Type Source Tests Collected by Time A : r/o h pylori Biopsy Gastric HISTOLOGY - TISSUE EXAM Dipti Xiao RN 05/30/2024 1351 B : r/o EOE Biopsy Proximal Esophagus HISTOLOGY - TISSUE EXAM Dipti Xiao RN 05/30/2024 1353 C : r/o EOE Biopsy Distal Esophagus HISTOLOGY - TISSUE EXAM Dipti Xiao RN 05/30/2024 1353 Complications: None Estimated blood loss: Minimal Disposition: Home Condition: Stable Findings: A non-obstructing Schatzki's ring that could be traversed easily with the regular EGD Irregular Z-line with an island of salmon colored mucosa. Biopsied Otherwise, normal esophagus. Proximal and distal esophageal biopsies taken to rule out EoE A small sliding hiatal hernia Normal fundus, body, and antrum of the stomach. Biopsies taken to rule out H.pylori Normal duodenal bulb and second part of the duodenum Impression: Non-obstructing Schatzki's ring Irregular Z-line with an island of salmon colored mucosa. Biopsies taken to rule out EoE Normal fundus, body, and antrum of the stomach. Biopsied Normal duodenal bulb and second part of the duodenum Recommendations: Resume regular diet Await pathology results Okay to restart anticoagulation tomorrow Okay to proceed with GEORGE Attending Attestation: I was present for the entire procedure. Lizz Mayer [facility] ENDOSCOPY PROCEDURE ORDERABLE S Final Result * Histology - tissue exam (05/30/2024 1:51 PM EDT) Case Report Surgical Pathology Case: [id number] Authorizing Provider: La Nena Brennan MD Collected: 05/30/2024 1351 Ordering Location: [facility] Main Operating Room Received: 05/30/2024 1510 Pathologist: Jez Vazquez MD Specimens: A) - Gastric, r/o h pylori B) - Proximal Esophagus, r/o EOE C) - Distal Esophagus, r/o EOE 06/07/2024 3:38 PM EDT [facility] ([place]) Addendum A. Immunohistochemic al staining for Helicobacter pylori is negative. The control is satisfactory. 06/07/2024 3:38 PM EDT [facility] ([place]) Addendum electronically signed by Jez Vazquez MD on 06/07/2024 at 1538 EDT Final Diagnosis A. Stomach, biopsy: -Chronic inactive gastritis. -No intestinal metaplasia identified. -See comment. B. Proximal esophagus, biopsy: -Squamous mucosa with no specific abnormality. -No intraepithelial eosinophils identified. C. Distal esophagus, biopsy: -Gastroesophageal junction mucosa with nonspecific chronic inflammation. -No intestinal metaplasia identified. 06/07/2024 3:38 PM EDT [facility] ([place]) at 1402 EDT Clinical Information Order Diagnoses R13.11 - Oral phase dysphagia [ICD-10-CM] 06/07/2024 3:38 PM EDT [facility] ([place] Comment A. Immunohistochemic al staining for Helicobacter pylori organisms is pending with results to follow in an addendum. 06/07/2024 3:38 PM EDT [facility] ([place]) Gross Description A. Gastric. The specimen is received in formalin labeled Reynaldo Collin and gastric biopsy. It consists of 3 bits and strips of galicia-pink irregular mucosal tissue ranging from 0.2 cm to 0.9 cm in greatest dimension. The specimen is submitted in toto in 1 cassette. Nubia Gutierrez Pathologists' Dictating Machine Mechanic student Susy Feliciano, Pathologists' Dictating Machine Mechanic B. Proximal Esophagus. The specimen is received in formalin labeled Reynaldo Collin and proximal esophagus biopsy. It consists of 4 bits of galicia-pink irregular mucosal tissue ranging from 0.2 cm to 0.4 cm in greatest dimension. The specimen is submitted in toto in 1 cassette. Nubia Gutierrez Pathologists' Dictating Machine Mechanic student Susy Feliciano, Pathologists' Dictating Machine Mechanic C. Distal Esophagus. The specimen is received in formalin labeled Reynaldo Collin and distal esophagus biopsy. It consists of 5 bits of galicia-pink irregular mucosal tissue ranging from 0.2 cm to 0.4 cm in greatest dimension. The specimen is submitted in toto in 1 cassette. Nubia Gutierrez Pathologists' Dictating Machine Mechanic student Susy Feliciano, Pathologists' Dictating Machine Mechanic 06/07/2024 3:38 PM EDT [facility] Microscopic Description Microscopic examination performed. 06/07/2024 3:38 PM EDT [facility] ([place]) Disclaimer The interpretation o f this case included the use of immunohistochemistry [...] the Clinical Laboratory Improvement Amendments of 1998. 06/07/2024 3:38 PM EDT [facility] Biopsy (Gastric) 05/30/2024 1:51 PM EDT 05/30/2024 3:10 PM EDT Biopsy (procedure) (Proximal Esophagus) 05/30/2024 1:53 PM EDT 05/30/2024 3:10 PM EDT Biopsy (procedure) (Distal Esophagus) 05/30/2024 1:53 PM EDT 05/30/2024 3:10 PM EDT us La Nena Brennan MD LAB PATHOLOGY ORDERABLES Ed ited Result - Final [facility] [place] [address] [place], [place] [address] * Vascular US carotid artery duplex bilateral (05/30/2024 11:19 AM EDT) Anatomical Region Laterality Modality Neck Ultrasound 05/30/2024 11:1 7 AM EDT Impressions 05/31/2024 3:06 PM EDT Notes: Indications: Carotid artery stenosis Dx: Nonrheumatic aortic valve stenosis [I35.0 (ICD-10-CM)]; Other specified symptoms and signs involving the circulatory and respiratory systems [R09.89 (ICD-10-CM)] Performed by rickey Herrera Right: Heterogeneou irregular plaque with no significant ICA spectral Doppler or color flow disturbances: ICA 76/21 cm/sec; consistent with <50% diameter reduction. Antegrade vertebral artery flow. Left: Patent stent. Heterogeneou irregular plaque with no significant ICA spectral Doppler or color flow disturbances: ICA 66/20 cm/sec; consistent with <50% diameter reduction. Dampen ECA velocities. Antegrade vertebral artery flow. Notes: Indications: Carotid artery stenosis Dx: Nonrheumatic aortic valve stenosis [I35.0 (ICD-10-CM)]; Other specified symptoms and signs involving the circulatory and respiratory systems [R09.89 (ICD-10-CM)] Performed by rickey King. Right: Heterogeneou irregular plaque with no significant ICA spectral Doppler or color flow disturbances: ICA 76/21 cm/sec; consistent with <50% diameter reduction. Antegrade vertebral artery flow. Left: Patent stent. Heterogeneou irregular plaque with no significant ICA spectral Doppler or color flow disturbances: ICA 66/20 cm/sec; consistent with <50% diameter reduction. Dampen ECA velocities. Antegrade vertebral artery flow. Conclusions: Antegrade flow of bilateral vertebral arteries. <50% stenosis in right internal carotid artery. <50% stenosis in left internal carotid artery. Narrative 05/31/2024 3:06 PM EDT Procedure: The carotid arteries, including common carotid, internal and external carotid artery were evaluated bilaterally. This was done using real-time imaging with velocity measurement, color Doppler, and spectral analysis. The vertebral arteries were evaluated bilaterally using color ultrasound and velocity measurement. Procedure: The carotid arteries, including common carotid, internal and external carotid artery were evaluated bilaterally. This was done using real-time imaging with velocity measurement, color Doppler, and spectral analysis. The vertebral arteries were evaluated bilaterally using color ultrasound and velocity measurement. Procedure Note Meliton Newton MD - 05/31/2024 Procedure: The carotid arteries, including common carotid, internal andexternal carotid artery were evaluated bilaterally. This was done usingreal-time imaging with velocity measurement, color Doppler, and spectralanalysis. The vertebral arteries were evaluated bilaterally using colorultrasound and velocity measurement. Procedure: The carotid arteries, including common carotid, internal andexternal carotid artery were evaluated bilaterally. This was done usingreal-time imaging with velocity measurement, color Doppler, and spectralanalysis. The vertebral arteries were evaluated bilaterally using colorultrasound and velocity measurement. IMPRESSION: Notes: Indications: Carotid artery stenosis Dx: Nonrheumatic aortic valve stenosis [I35.0 (ICD-10-CM)]; Otherspecified symptoms and signs involving the circulatory and respiratorysystems [R09.89 (ICD-10-CM)] Performed by rickey King. Right: Heterogeneou irregular plaque with no significant ICA spectralDoppler or color flow disturbances: ICA 76/21 cm/sec; consistent with <50%diameter reduction. Antegrade vertebral artery flow. Left: Patent stent. Heterogeneou irregular plaque with no significant ICAspectral Doppler or color flow disturbances: ICA 66/20 cm/sec; consistentwith <50% diameter reduction. Dampen ECA velocities. Antegrade vertebralartery flow. Notes: Indications: Carotid artery stenosis Dx: Nonrheumatic aortic valve stenosis [I35.0 (ICD-10-CM)]; Otherspecified symptoms and signs involving the circulatory and respiratorysystems [R09.89 (ICD-10-CM)] Performed by rickey King. Right: Heterogeneou irregular plaque with no significant ICA spectralDoppler or color flow disturbances: ICA 76/21 cm/sec; consistent with <50%diameter reduction. Antegrade vertebral artery flow. Left: Patent stent. Heterogeneou irregular plaque with no significant ICAspectral Doppler or color flow disturbances: ICA 66/20 cm/sec; consistentwith <50% diameter reduction. Dampen ECA velocities. Antegrade vertebralartery flow. Conclusions: Antegrade flow of bilateral vertebral arteries. <50% stenosis in right internal carotid artery. <50% stenosis in left internal carotid artery. Lizz Mayer CNP IMG CV VASCULAR PROCEDURES Fi nal Result from Last 3 Months Insurance MEDICARE Member Subscriber Plan / Payer ( fective 2007-Present) Name:Reynaldo Baker Member ID:[id number] Relation to Subscriber:Self Name:Reynaldo Baker Subscriber ID:[id number] Payer ID:[id number] Group ID:Not on file Type:Medicare Address: [facility] [address] OTHER Advance Directives * Full Code (Latest Code Status on File) Date Activated Date Inactivated Comments 08/01/2024 3:51 PM 08/06/2024 5:02 PM * Full Code Date Activated Date Inactivated Comments 08/01/2024 3:39 PM 08/01/2024 3:51 PM * Full Code Date Activated Date Inactivated Comments 06/27/2024 5:05 PM 06/30/2024 4:39 PM * Full Code Date Activated Date Inactivated Comments 10/12/2023 7:55 AM 10/13/2023 2:54 PM Care Teams Legal Investigator Relationship Specialty Start Date End Date Shailesh Vinson DO [address] [place] [address] PCP - General Family Medicine 08/04/23 Dr. Sheri Christiansen [address] [address] Ventilating Engineer Cardiology 08/18/23
--- OUTSIDE RECORDS SUMMARY | 2024-08-22 09:39 | XMS_ITS | Encounter Summary ---
Author Organization [employer] Address [id number] [address] [place] [address] Care Team Providers Care Bridge Rigger Name Role Phone Shailesh Vinson DO Primary Care Provider [phone] Encounter Details Date Type Department Care Team (Late st Contact Info) Description 05/15/2022 Telephone [facility] Orthopedics/Trauma and Adult Reconstruction [address] [place] [address] Delicia Ruiz PA-C [address] [place] [address] Social History Tobacco Use Types Packs/Day Years [...] have Coronavirus / COVID-19? No / Unsure 05/14/2022 9:47 AM EST documented as of this encounter Miscellaneous Notes * Telephone Encounter - Shailesh Gifford - 05/15/2022 1:39 PM EST Called patient to schedule new osteoporosis visit per Dr. Coe's referral. Caller hung up. documented in this encounter Plan of Treatment Not on [...] he would appreciate a referral sent to [facility]. documented as of this encounter Visit Diagnoses Not on filedocumented in this encounter Care Teams Bridge Rigger Relationship Specialty Start Date End Date Shailesh Vinson DO [address] [place] [id number] PCP - General Internal Medicine 10/26/21 documented as of this encounter
--- OUTSIDE RECORDS SUMMARY | 2024-08-22 09:39 | XMS_ITS | Encounter Summary ---
Author Organization [employer] Address [id number] [address] [place] [address] Care Team Providers Care Gopherman Name Role Phone Shailesh Vinson Primary Care Provider [phone] Encounter Details Date Type Department Care Team (Late st Contact Info) Description 08/07/2022 [facility]phone [facility] [address] [place] [address] Cleo Dodge, RN Social History Tobacco Use Types Packs/Day [...] on file documented as of this encounter Miscellaneous Notes * Telephone Encounter - Cleo Dodge RN - 08/07/2022 1:54 PM EDT RN called to set up new patient appointment. No answer, left message documented in this encounter Plan of Treatment [...] [facility] documented as of this encounter Visit Diagnoses Not on filedocumented in this encounter Care Teams Gopherman Relationship Specialty Start Date End Date Shailesh Vinson DO [address] [place] [address] PCP - General Internal Medicine 10/26/21 documented as of this encounter
--- OUTSIDE RECORDS SUMMARY | 2024-08-22 09:39 | XMS_ITS | Encounter Summary ---
Author Organization [employer] Address [id number] [address] [place] [address] Care Team Providers Care Back Tender Fourdrinier Name Role Phone Shailesh Vinson Primary Care Provider [phone] Reason for Visit * Reason Onset Date Comments PT Discharge 10/30/2021 Encounter Details Date Type Department Care Team (Late st Contact Info) Description 10/30/2021 Telephone [facility] Cardiology [address] [place] [id number] Paula Amezquita MD [address] [place] [address] PT Discharge Social History Tobacco Use Types Packs/Day Years Used Date Smoking Tobacco: Former Cigarettes Alcohol Use Standard Drinks/Week Comments Not Currently [...] have Coronavirus / COVID-19? No / Unsure 10/27/2021 10:14 AM EDT documented as of this encounter Miscellaneous Notes * Telephone Encounter - Caroline Jerome - 10/30/2021 10:35 AM EDT ----- Message from Paula Amezquita MD sent at 10/30/2021 8:37 AM EDT ----- Regarding: Post discharge follow-up Patient admitted with a fall and traumatic fracture to assess. Were following for preoperative cardiac care. Echocardiogram showed [id number] aortic stenosis. He is currently stable from a cardiac standpoint. Will follow as needed. Would like him to follow-up as outpatient within 2-3 weeks from discharge. Thank you * Telephone Encounter - Indy Oropeza - 10/30/2021 10:35 AM EDT PT IS STILL ADMITTED * Telephone Encounter - Indy Oropeza - 10/30/2021 10:35 AM EDT T/C to pt to schedule PPC f/u appt. Pt states he will call back later, he just woke up. documented in this encounter Plan of Treatment Not on file documented as of this encounter Goals Goal Patient Goal Type Associated Problems Recent Progress Patient-Stated? Author Safe discharge General Yes Yane Bradford RN Note: Evaluation of progress towards goal: Patient typically lives at home independent, but had an IM nailing done today and may need some rehab post-discharge. Patient is waiting for PT/OT evaluation, but if SNF is recommended, he would appreciate a referral sent to [facility]. documented as of this encounter Visit Diagnoses Not on filedocumented in this encounter Care Teams Back Tender Fourdrinier Relationship Specialty Start Date End Date Shailesh Vinson DO [address] [place] [address] PCP - General Internal Medicine 10/26/21 documented as of this encounter
--- OUTSIDE RECORDS SUMMARY | 2024-08-22 09:39 | XMS_ITS | Clinical Summary ---
Author Organization [facility] Address [address] [place] [address] Phone Care Team Providers Care Coal Picker Name Role Phone Shailesh Vinson DO Primary Care Provider [phone] Social History Tobacco Use Types Packs/Day Years Used Date Smoking Tobacco: Never Assessed Sex and Gender Information Value Date Recorded Sex Assigned at Not on file Legal Sex Male 9:39 PM EST Gender Identity Not on file Sexual Orientation Not on file Plan of Treatment Health Maintenance Due Date Last Done Comments Lipid Panel 1940 Medicare Annual Wellness Vis it (AWV) 1940 Pneumococcal Vaccine (1 of 2 - PCV) 1961 DTaP/Tdap/Td Vaccines (1 - Tdap) 1964 Zoster Vaccines (1 of 2) 1992 RSV High Risk: (Elderly (60+ ) or Population) (1 - 1-dose 75+ series) 2017 COVID-19 Vaccine ( - 2023-2 5 season) 2023 Influenza Vaccine (Season Ended) 2024 HIB Vaccines Aged Out No longer eligi ble based on patient's age to complete this topic HPV Vaccines Aged Out No longer eligi ble based on patient's age to complete this topic Hepatitis A Vaccines Aged Out No long er eligible based on patient's age to complete this topic Hepatitis B Vaccines Aged Out No long er eligible based on patient's age to complete this topic IPV Vaccines Aged Out No longer eligi ble based on patient's age to complete this topic Meningococcal Vaccine Aged Out No ashly conrad eligible based on patient's age to complete this topic Rotavirus Vaccines Aged Out No longer eligible based on patient's age to complete this topic Insurance MEDICARE PART A AND B Care Teams Coal Picker Relationship Specialty Start Date End Date Shailesh Vinson DO PCP - General 03/08/99
--- OUTSIDE RECORDS SUMMARY | 2024-08-22 09:39 | XMS_ITS | Referral Summary ---
Author Organization [facility] Address [address] [place] [address] Care Team Providers Care Pattern Wheel Maker Name Role Phone Shailesh Vinson DO Primary Care Provider [phone] Encounters Date Type Department Care Team Description 08/15/2024 12:45 PM EDT Follow-Up [facility] [address] [place] [address] Jez Martin MD S/P TAVR (transcatheter aortic valve replacement) (Primary Dx) 08/10/2024 3:20 PM EDT - 08/10/2024 11:59 PM EDT Hospital Encounter [facility] [address] [place] [address] S/P TAVR (transcatheter aortic valve replacement) Discharge Disposition: Home or Self Care () 08/10/2024 2:00 PM EDT Follow-Up [facility] [address] [place] [address] Aggie, , ADMINISTRATIVE MEDICAL DIRECTOR Hematoma of neck, sequela (Primary Dx); S/P TAVR (transcatheter aortic valve replacement) 08/10/2024 1:40 PM EDT Follow-Up [facility] [address] [place] [address] Kimani Spring MD S/P TAVR (transcatheter aortic valve replacement) (Primary Dx); Primary hypertension; Coronary artery disease involving lower brule coronary artery of lower brule heart without angina pectoris; PAF (paroxysmal atrial fibrillation) (CMS/HCC); Status post insertion of drug eluting coronary artery stent; PAD (peripheral artery disease) 08/01/2024 9:20 AM EDT - 08/06/2024 3:02 PM EDT Hospital Encounter [facility] [address] [place] [address] Kimani Spring MD Lee, Jai, MD Horani, Omar, MD Iqbal, Amna, MD Severe aortic valve stenosis (Primary Dx); Nonrheumatic aortic valve stenosis; S/P TAVR (transcatheter aortic valve replacement); Aortic stenosis, severe; Acute cystitis without hematuria Discharge Disposition: Home-Health Care Sv () 08/01/2024 Travel 08/01/2024 Refill [facility] [place] [address] [place] [address] Machelle Mann MA Paroxysmal atrial fibrillation (CMS/HCC) 08/01/2024 1:15 PM EDT Anesthesia Event [facility] [address] [place] [address] Kathi Lyons MD Uberoi, Ravindera, MD 08/01/2024 9:16 AM EDT - 08/01/2024 9:19 AM EDT Hospital Encounter [facility] [address] [place] [address] Nonrheumatic aortic valve stenosis Discharge Disposition: Home or Self Care () 08/01/2024 11:00 AM EDT - 08/01/2024 1:00 PM EDT Surgery [facility] [address] [place] [address] Kimani Spring MD TAVR 07/27/2024 Orders Only [facility] [address] [place] [address] Ag Hummel RN 07/26/2024 Orders Only [facility] [address] [place] [address] Lizz Mayer CNP Contrast media allergy 07/19/2024 5:15 PM EDT Ancillary Procedure [facility] [address] [place] [address] Awareness of heartbeats 07/18/2024 Orders Only [facility] [address] [place] [address] Jez Martin MD 07/13/2024 Travel 07/10/2024 9:45 AM EDT Office Visit [place] [address] [place] [address] Kimani Spring MD Nonrheumatic aortic valve stenosis (Primary Dx); Coronary artery disease involving lower brule coronary artery of lower brule heart without angina pectoris; PAF (paroxysmal atrial fibrillation) (CMS/HCC); PAD (peripheral artery disease); Contrast media allergy; Status post insertion of drug eluting coronary artery stent; Chronic anemia 07/04/2024 Orders Only [facility] [address] [place] [address] Lizz Mayer CNP Nonrheumatic aortic valve stenosis (Primary Dx) 06/27/2024 8:42 AM EDT - 06/30/2024 2:39 PM EDT Hospital Encounter [facility] [address] [place] [address] Kimani Spring MD Salahaldeen, Aya, MD Chang, Kyu Chul, MD Abrasion of trachea (Primary Dx); 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; Nonrheumatic aortic valve stenosis; Hemoptysis; Triple vessel coronary artery disease; Paroxysmal atrial fibrillation (CMS/HCC); Chronic anemia Discharge Disposition: Home or Self Care () 06/29/2024 3:52 PM EDT Anesthesia Event [facility] Main Operating Room [address] [place] [address] Kathi Lyons MD Brewer, Shawn, CAA 06/29/2024 Travel 06/27/2024 Travel 06/27/2024 1:30 PM EDT - 06/27/2024 3:30 PM EDT Surgery [facility] [address] [place] [address] Kimani Spring MD Percutaneous coronary intervention 06/20/2024 Orders Only [facility] [address] [facility] [place] [address] Lizz Mayer CNP 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 (Primary Dx); Nonrheumatic aortic valve stenosis 06/20/2024 Travel 06/20/2024 Orders Only [facility] [address] [place] [place] [address] Francisca Luciano, SHAREE Nonrheumatic aortic valve stenosis (Primary Dx) 06/19/2024 8:20 PM EDT Ancillary Procedure [facility] [address] [facility] [place] [address] Awareness of heartbeats 06/19/2024 Orders Only [place] [address] [place] [address] Evy Muhammad, HUMBLE 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 06/18/2024 Orders Only [facility] [address] [facility] [place] [address] Lizz Mayer CNP Nonrheumatic aortic valve stenosis (Primary Dx) 06/15/2024 Orders Only [facility] [address] [facility] [place] [address] Lizz Mayer CNP Nonrheumatic aortic valve stenosis (Primary Dx) 06/06/2024 12:22 PM EDT Hospital Encounter [facility] [place] [address] Nonrheumatic aortic valve stenosis Discharge Disposition: Home or Self Care () 06/06/2024 12:23 PM EDT - 06/06/2024 11:59 PM EDT Hospital Encounter [facility] [address] [place] [address] Nonrheumatic aortic valve stenosis Discharge Disposition: Home or Self Care () 05/30/2024 Travel 05/30/2024 11:13 AM EDT - 05/30/2024 11:59 PM EDT Hospital Encounter [facility] Main Operating Room [address] [place] [address] L aNena Brennan MD Casabianca, Andrew, MD Harris, Madeline S., CAA Oral phase dysphagia Discharge Disposition: Home or Self Care () 05/30/2024 10:01 AM EDT - 05/30/2024 11:12 AM EDT Hospital Encounter [facility] Ul[facility]ound [facility] [address] [place] [address] Nonrheumatic aortic valve stenosis; Other specified symptoms and signs involving the circulatory and respiratory systems Discharge Disposition: Home or Self Care () 05/30/2024 1:40 PM EDT Anesthesia Event [facility] Main Operating Room [address] [place] [address] Felipe Simon MD Brochin, Evan, MD 05/25/2024 Orders Only [facility] [address] [place] [address] Lizz Mayer CNP Nonrheumatic aortic valve stenosis (Primary Dx); Contrast media allergy 05/24/2024 Travel 05/23/2024 Orders Only [facility] [address] [place] [address] Lizz Mayer CNP Oral phase dysphagia (Primary Dx) from Last 3 Months Allergies Active Allergy Reactions Criticality Noted Date Comments Larry Inhibitors Hives,Unknown 05/09/2015 Other Reaction(s): Unknown Gadolinium-Containing Contrast Media Itching,Unknown 05/09/2015 Iodinated Contrast Media Hives 10/26/2021 Other Reaction(s): hives Iodine Unknown 10/26/2021 Tetanus And Diphtheria Toxoids Unknown 10/26/2021 Tetanus Immune Globulin Other 07/05/2023 Tetanus Vaccines And Toxoid Unknown,Other 05/16/2015 Medications pravastatin (Pravachol) 40 mg tablet Take 40 mg by mouth at bedtime. 01/26/20 Active folic acid (Folvite) 1 mg tabletIndication s:Chronic anemia Take 1 tablet (1 mg) by mouth in the morning. 90 tablet 3 07/11/19 25 026 Active clopidogrel (Plavix) 75 mg tabletIndication s:Coronary artery disease involving lower brule coronary artery of lower brule heart without angina pectoris,Status post insertion of [...] daily MiraLAX Coronary artery disease invo lving lower brule coronary artery of lower brule heart without angina pectoris 08/04/2024 Assessment & [...] post stenting Coronary artery disease invo lving lower brule coronary artery of lower brule heart with angina pectoris 06/20/2024 Assessment & [...] of right clavicle 11/14/2021 Femur fracture 10/26/2021 Social History Tobacco Use Types Packs/Day Years Used Date Smoking Tobacco: Former Cigarettes 2 40 1 958 - 1998 Smokeless Tobacco: Never Tobacco Cessation:Counseling Given: Not Answered Alcohol Use Standard Drinks/Week Comments Not Currently 3 (1 standard drink = 0.6 oz pur e alcohol) 4x week- vivian [facility] Utilities Answer Date Recorded In the past 12 months has th e electric, gas, oil, or water company [...] any time in the past 12 [facility], were you homeless or living in a [facility] (including now)? No 08/02/2024 Hunger Vital Sign [...] Info) Description 08/31/2024 1:30 PM EDT Appointment [facility] [address] [place] [phone] 09/04/2024 11:15 AM EDT Follow-Up [facility] [address] [place] [address] Kimani Spring MD [address] [facility] [place] [address] 09/19/2024 3:30 PM EDT Consult [facility] [address] [place] [address] Paul Mayen MD [address] [place] [address] Medical Devices Implanted Type Area Public Affairs Specialist Device Identifier Shelf Expiration Date Model / Serial / Lot Stent,Synerg y Mr 2.25 X 16 - [id number] Implanted:Qt y: 1 on 06/27/2024 by Kimani Spring MD at [facility] Drug Eluting Stent N/A: Coronary [employer] [id number] 09/06/2025 [id number] / / [id number] Stent,Synerg y Mr 2.50 X 12 - [id number] Implanted:Qt y: 1 on 06/27/2024 by Kimani Spring MD at [facility] Drug Eluting Stent N/A: Coronary [employer] [id number] 08/01/2025 [id number] / / [id number] Monitor,Card iac,Lux,Dxii +[facility] - [id number] - [id number] Implanted:Qt y: 1 on 04/12/2024 by Jez Martin MD at [facility] Implantable Loop Recorder N/A: Chest [employer] 08/02/2025 [id number] / [id number] / Valve,Aortic ,Evolutfm+,2 9mm - [id number] - [id number] Implanted:Qt y: 1 on 08/01/2024 by Kimani Spring MD at [facility] Prosthetic Valve N/A: Aorta [employer] [id number] 03/30/2026 EVFXPLUS -29 / [id number] / Procedures Procedure Name Priority Date/Time Associated [...] AND SCREEN Routine 08/01/2024 1:49 PM EDT GA AN ELECTIVE ENDOTRACHEAL AIRWAY Routine 08/01/2024 1:29 [...] MUSE Atrial Rate 73 BPM GE MUSE GA Interval 148 ms GE MUSE QRS DURATION 136 ms GE MUSE QT Interval 432 ms GE MUSE QTC CALCULATION(BAZE TT) 475 ms GE MUSE P [place] 59 degrees GE MUSE R-[place] 108 degrees GE MUSE T Wave [place] 13 degrees GE MUSE 08/10/2024 3:25 PM [...] SAMER J. (57) on 08/10/2024 6:15:45 PM us Kimani Spring MD ECG ORDERABLES Final Result GE MUSE * (ABNORMAL) CBC auto differential (08/06/2024 3:42 AM EDT) Only the most recent of4 resultswithin the time period is included. Auto WBC 8.24 4.00 - 10.60 10*3/uL 08/06/2024 4:38 AM EDT [facility] ([facility]) RBC 3.03(L) 4.20 - 5.70 10*6/uL 08/06/2024 4:38 AM EDT [facility] ([facility]) Hemoglobin 9.0(L) 13.0 - 17.0 g/dL 08/06/2024 4:38 AM T [facility] ([facility]) Hematocrit 28.0(L) 39.0 - 50.0 % 08/06/2024 4:38 AM EDT [facility] ([facility]) MCV 92.4 82.0 - 98.0 fL 08/06/2024 4:38 AM EDT [facility] ([facility]) MCH 29.7 27.0 - 33.0 pg 08/06/2024 4:[address] [facility] ([facility]) MCHC 32.1 32.0 - 35.0 g/dL 08/06/2024 4:[address] [facility] ([facility]) RDW 13.0 11.5 - 15.0 % 08/06/2024 4:[address] [facility] ([facility]) Neutrophils % 69.5 40.0 - 72.0 % 08/06/2024 4:38 AM T [facility] ([facility]) Lymphocytes % 16.6(L) 20.0 - 45.0 % 08/06/2024 4:[address] [facility] ([facility]) Monocytes % 11.2 5.0 - 12.0 % 08/06/2024 4:38 AM EDT [facility] ([facility]) Eosinophils % 1.8 0.0 - 6.0 % 08/06/2024 4:38 AM EDT [facility] ([facility]) Basophils % 0.4 0.0 - 1.0 % 08/06/2024 4:38 AM T [facility] ([facility]) Neutrophils Absolute 5.73 1.60 - 7.60 10*3/uL 08/06/2024 4:[address] [facility] ([facility]) Lymphocytes Absolute 1.37 1.20 - 4.00 10*3/uL 08/06/2024 4:[facility] Monocytes Absolute 0.92 0.10 - 1.00 10*3/uL 08/06/2024 4:38 AM EDT [facility] ([facility]) Eosinophils Absolute 0.15 0.00 - 0.50 10*3/uL 08/06/2024 4:38 AM EDT [facility] ([facility]) Basophils Absolute 0.03 0.00 - 0.20 10*3/uL 08/06/2024 4:38 AM EDT [facility] ([facility]) Platelets 165 150 - 400 10*3/uL 08/06/2024 4:38 AM EDT [facility] ([facility]) nRBC % 0.0 0 % 08/06/2024 4:38 AM EDT [facility] ([facility]) Immature Granulocytes % 0.5 0.0 - 1.0 % 08/06/2024 4:38 AM EDT [facility] ([facility]) Immature Granulocytes Absolute 0.04 0.00 - 0.20 10*3/uL 08/06/2024 4:38 AM EDT [facility] ([facility]) Blood Venous blood specimen / Unknown Venipuncture / Unknown 08/06/2024 3:42 AM EDT 08/06/2024 4:24 AM EDT us Isa Camarillo MD LAB BLOOD ORDERABLES Final Resul t [facility]) [address] [place] [address] * (ABNORMAL) Magnesium (08/06/2024 3:42 AM EDT) Only the most recent of4 resultswithin the time period is included. Magnesium 1.7(L) 1.9 - 2.7 mg/dL 08/06/2024 4:46 AM EDT [facility] ([facility]) Blood Venous blood specimen / Unknown Venipuncture / Unknown 08/06/2024 3:42 AM EDT 08/06/2024 4:22 AM EDT us Isa Camarillo MD LAB BLOOD ORDERABLES Final Resul t [facility] ([facility]) [address] [place] [address] * (ABNORMAL) Basic metabolic panel (08/06/2024 3:42 AM EDT) Only the most recent of8 resultswithin the time period is included. Sodium 136 136 - 145 mmol/L 08/06/2024 4:46 AM EDT [facility] ([facility]) Potassium 4.1 3.5 - 5.1 mmol/L 08/06/2024 4:46 AM EDT [facility] ([facility]) Chloride 104 98 - 107 mmol/L 08/06/2024 4:46 AM EDT [facility] ([facility]) CO2 27 21 - 31 mmol/L 08/06/2024 4:46 AM EDT [facility] ([facility]) BUN 22 7 - 25 mg/dL 08/06/2024 4:46 AM EDT [facility] ([facility]) Creatinine 0.55(L) 0.70 - 1.30 mg/dL 08/06/2024 4:46 AM EDT [facility] ([facility]) Glucose 107(H) 70 - 100 mg/dL 08/06/2024 4:46 AM EDT [facility] ([facility]) Calcium 7.9(L) 8.6 - 10.3 mg/dL 08/06/2024 4:46 AM EDT [facility] ([facility]) Anion Gap 9 7 - 20 mmol/L 08/06/2024 4:46 AM EDT [facility] ([facility]) eGFR 98.9 >60.0 mL/min/1. 73m*2 08/06/2024 4:46 AM EDT [facility] ([facility]) Comment:[facility] s estimated glomerular filtration rate (eGFR) will [...] BUN/Creatinine Ratio 40.0 03/2024 4:46 AM EDT [facility]) Blood Venous blood specimen / Unknown Venipuncture / Unknown 08/06/2024 3:42 AM EDT 08/06/2024 4:22 AM EDT Isa Camarillo MD LAB BLOOD ORDERABLES Final Resul t Performing Organization Address City/[facility]/ZIP Co de Phone Number [facility]) [address] [place], [place] [id number] * Occult blood x 1, stool (08/05/2024 8:23 PM EDT) Fecal Occult Bld Negative Negative, None Detected 08/05/2024 8:54 PM EDT [facility]) Stool Rectal contents / Unknown Non-blood Collection / Unknown 08/05/2024 8:23 PM EDT 08/05/2024 8:27 PM EDT Isa Camarillo MD LAB BODY FLUIDS AND STOOLS ORDER LEONILA Final Result Performing Organization Address City/[facility]/ZIP Co de Phone Number [facility]) [address] [place] [phone] * Prepare RBC (08/05/2024 8:30 AM EDT) Only the most recent of2 resultswithin the time period is included. PRODUCT CODE [id number] [facility] Unit Number [id number] [facility] BLOOD B[facility] Unit ABO A [facility] Unit Rh POS [facility] Dispense Status RE [facility] Blood Expiration Date [id number] [facility] Product Blood Type 6200 [facility] Unit Volume 300 ML [facility] PRODUCT CODE [id number] [facility] Unit Number [id number] [facility] BLOOD BANK Unit ABO A [facility] Unit Rh POS [facility] Dispense Status RE [facility] Blood Expiration Date [id number] [facility] Product Blood Type 6200 [facility] us Regino Brewer MD BLOOD BANK PRODUCT ORDERABLES Fi nal Result [facility] * Lavender Top (08/05/2024 3:53 AM EDT) Only the most recent of2 resultswithin the time period is included. Extra Tube Hold for add-ons. 08/05/2024 6:01 AM EDT [facility] ([facility]) Comment:Auto resulted. Blood Venous blood specimen / Unknown 08/05/2024 3:53 AM EDT 08/05/2024 4:14 AM EDT us Isa Camarillo MD LAB BLOOD ORDERABLES Final Resul t Performing Organization Address City/[facility]/ZIP Co de Phone Number [facility] ([facility]) [address] [place] [address] * XR chest 1 view (08/04/2024 6:35 [...] - 1.0 % 08/03/2024 2:22 PM EDT [facility] ([facility]) Neutrophils Absolute 11.2(H) 1.6 - 7.6 10*3/uL 08/03/2024 2:22 PM EDT [facility] ([facility]) Lymphocytes Absolute 1.06(L) 1.20 - 4.00 10*3/uL 08/03/2024 2:22 PM EDT [facility] ([facility]) Monocytes Absolute 1.68(H) 0.10 - 1.00 10*3/uL 08/03/2024 2:22 PM EDT [facility] ([facility]) Eosinophils Absolute 0.00 0.00 - 0.50 10*3/uL 08/03/2024 2:22 PM EDT [facility] ([facility]) Basophils Absolute 0.01 0.00 - 0.20 10*3/uL 08/03/2024 2:22 PM T [facility] ([facility]) Neutrophils % 79.7(H) 40.0 - 72.0 % 08/03/2024 2:22 PM T [facility] ([facility]) Lymphocytes % 7.5(L) 20.0 - 45.0 % 08/03/2024 2:[address] [facility] ([facility]) Monocytes % 11.9 5.0 - 12.0 % 08/03/2024 2:22 PM T [facility] ([facility]) Eosinophils % 0.0 0.0 - 6.0 % 08/03/2024 2:[address] [facility] ([facility]) Basophils % 0.1 0.0 - 1.0 % 08/03/2024 2:22 PM T [facility] ([facility]) Immature Granulocytes Absolute 0.11 0.00 - 0.20 10*3/uL 08/03/2024 2:[address] [facility] ([facility]) Blood Venous blood specimen / Unknown Venipuncture / Unknown 08/03/2024 12:33 PM EDT 08/03/2024 1:04 PM EDT Radha Campoverde PA-C LAB BLOOD ORDERABLES Areli l Result [facility]) [address] [place], [place] [id number] * Blood culture (08/03/2024 12:33 PM EDT) Only the most recent of2 resultswithin the time period is included. Blood Culture No growth at 5 days TONJA 08/08/2024 2:01 PM EDT [facility] ([facility]) Blood Venous blood specimen / Unknown Venipuncture / Unknown 08/03/2024 12:33 PM EDT 08/03/2024 1:04 PM EDT Lesly Marcial ADMINISTRATIVE MEDICAL DIRECTOR LAB MICROBIOLOGY - GENERAL ORDE RABGERMAINE Final Result [facility] ([facility]) [address] [place] [address] * (ABNORMAL) Lipid panel (08/03/2024 12:33 PM EDT) Triglycerides 165(H) <150 mg/dL 08/03/2024 1:58 PM EDT [facility] ([facility]) Comment: TRIGLYCERIDE REFERENCE RANGE: 20 YEARS AND OLDER CARDIOVASCULAR RISK LESS THAN 150 mg/dL LOW RISK 150 TO 199 mg/dL BORDERLINE RISK 200 mg/dL AND GREATER HIGH RISK Cholesterol 86(L) 120 - 200 mg/dL 08/03/2024 1:58 PM EDT [facility] ([facility]) LDL Calculated 30 0 - 160 mg/dL 08/03/2024 1:58 PM EDT [facility] ([facility]) HDL 23 23 - 92 mg/dL 08/03/2024 1:58 PM EDT [facility] ([facility]) Non HDL Cholesterol 63 08/03/2024 1:58 PM EDT [facility] ([facility]) Total VLDL-C 33 0 - 40 mg/dL 08/03/2024 1:58 PM EDT [facility] ([facility]) Cholesterol/HDL Ratio 3.7 mg/dL 08/03/2024 1:58 PM EDT [facility] ([facility]) Blood Venous blood specimen / Unknown Venipuncture / Unknown 08/03/2024 12:33 PM EDT 08/03/2024 1:04 PM EDT us Stan Simms MD LAB BLOOD ORDERABLES Final Resu lt [facility]) [address] [place] [address] * (ABNORMAL) Urinalysis microscopic with reflex culture (08/03/2024 9:43 AM EDT) RBC, Urine >20(A) None Seen, 0-2 /HPF 08/03/2024 10:22 AM EDT [facility] ([facility]) WBC, Urine 11-20(A) None Seen, 0-2 /HPF 08/03/2024 10:22 AM EDT [facility] ([facility]) Squamous Epithelial, Urine Occasional None Seen, Occasional , Few /LPF 08/03/2024 10:22 AM EDT [facility] ([facility]) Mucus, Urine Occasional None Seen, Occasional , Few /LPF 08/03/2024 10:22 AM EDT [facility]) Urine Urine specimen obtained by clean catch procedure / Unknown Non-blood Collection / Unknown 08/03/2024 9:43 AM EDT 08/03/2024 9:48 AM EDT us Mark Anthony Frey MD LAB URINE ORDERABLES Final Resul t [facility]) [address] [place] [address] * (ABNORMAL) Urinalysis with reflex culture (08/03/2024 9:43 AM EDT) Color, Urine Yellow Colorless, Yellow, Light-Yellow 08/03/2024 10:22 AM EDT [facility] ([facility]) Clarity, Urine Clear Clear 08/03/2024 10:22 AM EDT [facility] ([facility]) pH, Urine 5.5 5.0 - 8.0 pH 08/03/2024 10:22 AM EDT [facility] ([facility]) Leukocytes, Urine Moderate(A) Negative 08/03/2024 10:22 AM EDT [facility] ([facility]) Nitrite, Urine Negative Negative 08/03/2024 10:22 AM EDT [facility] ([facility]) Protein, Urine Negative Negative mg/dL 08/03/2024 10:22 AM EDT [facility] ([facility]) Glucose, Urine Normal Normal mg/dL 08/03/2024 10:22 AM T [facility] ([facility]) Bilirubin, Urine Negative Negative 08/03/2024 10:[address] [facility] ([facility]) Specific [place], Urine 1.030 1.010 - 1.030 08/03/2024 10:22 AM T [facility] ([facility]) Ketones, Urine Negative Negative mg/dL 08/03/2024 10:22 AM T [facility] ([facility]) Blood, Urine Large(A) Negative 08/03/2024 10:22 AM T [facility] ([facility]) Urobilinogen, Urine Normal Normal mg/dL 08/03/2024 10:22 AM T [facility] ([facility]) Urine Urine specimen obtained by clean catch procedure / Unknown Non-blood Collection / Unknown 08/03/2024 9:43 AM EDT 08/03/2024 9:48 AM EDT us Mark Anthony Frey MD LAB URINE ORDERABLES Final Resul t [facility] ([facility]) [address] [place] [address] * Urine culture, routine (08/03/2024 9:43 AM EDT) Urine Culture No growth at 48 hours TONJA 08/05/2024 7:43 AM EDT [facility] ([facility]) Urine Urine specimen obtained by clean catch procedure / Unknown Non-blood Collection / Unknown 08/03/2024 9:43 AM EDT 08/03/2024 9:48 AM EDT us Mark Anthony Frey MD LAB MICROBIOLOGY - GENERAL ORDER LEONILA Final Result [facility] ([facility]) [address] [place] [address] * FL modified barium swallow (08/02/2024 10:46 [...] of multiple consistencies were administered. Fluoroscopic time [id number] seconds. 11.4 mgy. Deep laryngeal penetration with [...] materials of multiple consistencieswere administered. Fluoroscopic time [id number] seconds. 11.4 mgy. Deep laryngeal penetration with [...] Narrative 08/02/2024 10:27 AM EDT 1 1 [facility] [address] [place] [address] [phone] (fax) E[facility]ogram[facility] Name: CHICO BAKER Study Date: 08/02/2024 07:47 AM B/P: 104 mmHg/46 mmHg HR: 64 bpm Date of : 1940 Location: [facility] Height: 66 in. Age: 84 year(s) Patient [...] No pericardial effusion. Procedure Staff Reading Group: [facility] Referring Physician: SHAILESH VINSON Belt Line Feeder: Darleen Carmona RDCS, RVT, RN, BSN Ordering Physician: LIZZ MAYER Procedure Note Shira Shabazz MD - 08/02/2024 1 1 [facility] [address] [place] [address] [phone] (fax) [facility]ocardiogram[facility] Name: CHICO BAKER Study Date: 08/02/2024 07:47 AM B/P: 104 mmHg/46 mmHg HR: 64 bpm Date of : 1940 Location: [facility] Height: 66 in. Age: 84 year(s) Patient [...] No pericardial effusion. Procedure Staff Reading Group: [facility] Referring Physician: SHAILESH VINSON Belt Line Feeder: Darleen Carmona, RDCS, RVT, RN, BSN Ordering Physician: LIZZ MAYER us Lizz Mayer ADMINISTRATIVE MEDICAL DIRECTOR CV ECHO PROCEDURES Final Resu lt * (ABNORMAL) CBC (08/02/2024 4:29 AM EDT) Only the most recent of5 resultswithin the time period is included. Auto WBC 22.16(H) 4.00 - 10.60 10*3/uL 08/02/2024 5:48 AM EDT [facility] ([facility]) RBC 2.92(L) 4.20 - 5.70 10*6/uL 08/02/2024 5:48 AM EDT [facility] ([facility]) Hemoglobin 8.7(L) 13.0 - 17.0 g/dL 08/02/2024 5:48 AM EDT [facility] ([facility]) Hematocrit 27.1(L) 39.0 - 50.0 % 08/02/2024 5:48 AM EDT [facility] ([facility]) MCV 92.8 82.0 - 98.0 fL 08/02/2024 5:48 AM EDT [facility] ([facility]) MCH 29.8 27.0 - 33.0 pg 08/02/2024 5:48 AM EDT [facility] ([facility]) MCHC 32.1 32.0 - 35.0 g/dL 08/02/2024 5:48 AM EDT [facility] ([facility]) RDW 13.1 11.5 - 15.0 % 08/02/2024 5:48 AM EDT [facility] ([facility]) Platelets 195 150 - 400 10*3/uL 08/02/2024 5:48 AM EDT [facility] ([facility]) Blood Venous blood specimen / Unknown Arterial Line / Unknown 08/02/2024 4:29 AM EDT 08/02/2024 4:40 AM EDT us Lizz Mayer ADMINISTRATIVE MEDICAL DIRECTOR LAB BLOOD ORDERABLES Final Re sult Performing Organization Address [facility] Co de Phone Number [facility] ([facility]) [address] [place] [address] * (ABNORMAL) POCT glucose meter (08/01/2024 5:02 PM EDT) Only the most recent of3 resultswithin the time period is included. Glucose POC 174(H) 70 - 105 mg/dL 08/01/2024 5:13 PM EDT [facility] ([facility]) Comment:[id number] Blood Capillary blood specimen / Unknown 08/01/2024 5:02 PM EDT 08/01/2024 5:13 PM EDT Narrative [facility] ([facility]) - 08/01/2024 5:13 PM EDT Waived Testing in the ED is performed under the ED CLIA certificate #[id number]. us Generic Provider Poct LAB BLOOD ORDERABLES Final Result Performing Organization Address [facility] de Phone Number [facility] ([facility]) [address] [place] [id number] * (ABNORMAL) APTT (08/01/2024 5:00 PM EDT) aPTT 40.3(H) 25.0 - 35.0 Seconds 08/01/2024 5:36 PM EDT [facility] ([facility]) Comment:Clinical significanc e of the APTT is questionable in the presence of heparin. Blood Venous blood specimen / Unknown Arterial Line / Unknown 08/01/2024 5:00 PM EDT 08/01/2024 5:03 PM EDT us Hal Kirkpatrick ADMINISTRATIVE MEDICAL DIRECTOR LAB BLOOD ORDERABLES Fi nal Result [facility] ([facility]) [address] [place] [address] * (ABNORMAL) Protime-INR (08/01/2024 5:00 PM EDT) Protime 16.6(H) 12.3 - 14.8 Seconds 08/01/2024 5:36 PM EDT [facility] ([facility]) INR 1.35(H) 0.90 - 1.10 08/01/2024 5:36 PM EDT [facility] ([facility]) Comment: ACC RECOMMENDED INR FOR WARFARIN THERAPY CONDITION INR [...] 08/01/2024 5:03 PM EDT us Hal Kirkpatrick [facility] LAB BLOOD ORDERABLES Fi nal Result [facility] ([facility]) [address] [place] [address] * Phosphorus (08/01/2024 5:00 PM EDT) Phosphorus 3.5 2.5 - 5.0 mg/dL 08/01/2024 5:35 PM EDT [facility] ([facility]) Blood Venous blood specimen / Unknown Arterial Line / Unknown 08/01/2024 5:00 PM EDT 08/01/2024 5:06 PM EDT us Hal Kirkpatrick [facility] LAB BLOOD ORDERABLES Fi nal Result [facility] ([facility]) [address] [place] [address] * TAVR (08/01/2024 4:03 PM EDT) Anatomical Region Laterality Modality Other Narrative 08/01/2024 4:32 PM EDT INDICATION: Chico Baker is a 84 y.o. male with [...] vein under ultrasound guidance. OPERATORS: Interventional Cardiology Talent Acquisition Project Manager: Kimani Spring MD Cardiac Surgery Talent Acquisition Project Manager: Mark Anthony Frey MD Supervisor Machine Workers Interventional Cardiology Talent Acquisition Project Manager: Abhay Knutson Interventional Fellow Fellow: Dr. Sander Ware METHODS: Procedure was explained to the patient with risks and benefits. he signed informed consent. he was brought to laboratory monitor in a fasting state. The procedure was performed in the cardiac laboratory monitor under general anesthesia. Both groin areas, and the right neck area were prepped and draped in usual fashion. Micropuncture technique and ultrasound guidance were used for access in the right common femoral artery and inner cannula angiography was performed followed by upsizing to a 6-Niuean x 11 cm sheath. The same was done for the access in the right common femoral vein. A 5-Niuean balloon-tipped pacemaker wire was advanced through the femoral vein sheath to the right ventricular apex and adequate capture was confirmed. Through the right common femoral sheath, an angled 6-Niuean pigtail catheter was then advanced to the [...] in the common carotid artery and a 10-Niuean x 11 cm sheath was placed. A 6-Niuean AL1 diagnostic catheter was advanced via the carotid sheath, and using a straight stiff Glidewire, the aortic valve was crossed and the catheter was advanced in the left ventricular cavity, and using an exchange length J-wire, a 6-Niuean angled pigtail catheter was advanced to make [...] the valve over the wire across the lower brule aortic valve, and under pacing at 120 [...] and removed outside of the body. The 14-Niuean access sheath was placed across the carotid access and a 6-Niuean angled pigtail catheter was advanced across the [...] Unknown 08/01/2024 3:49 PM EDT Narrative Scotty Ji, [place] - 08/07/2024 8:06 AM EDT Qc lot [id number]; benzene operator [id number] Kimani Spring MD POINT OF CARE TEST ENTER/KARTIK T ORDERABLES Final Result * LIMITED ECHOCARDIOGRAM (TTE) W/ LTD DOPPLER AND COLOR FLOW (08/01/2024 3:33 PM EDT) Anatomical Region Laterality Modality Other 08/01/2024 10:4 4 AM EDT Narrative 08/01/2024 5:24 PM EDT 1 1 [facility] [address] [place] [address] [phone] (fax) [facility] Name: CHICO BAKER Study Date: 08/01/2024 10:44 AM B/P: 183 mmHg/71 mmHg HR: Date of : 1940 Location: [facility] Height: 66 in. Age: 84 year(s) Patient [...] No pericardial effusion. Procedure Staff Reading Group: [facility] Belt Line Feeder: Divina Priest RDCS Ordering Physician: LIZZ MAYER Procedure Note Shira Shabazz MD - 08/01/2024 1 1 [facility] [address] [place] [address] [phone] (fax) [facility] Name: CHICO BAKER Study Date: 08/01/2024 10:44 AM B/P: 183 mmHg/71 mmHg HR: Date of : 1940 Location: [facility] Height: 66 in. Age: 84 year(s) Patient [...] No pericardial effusion. Procedure Staff Reading Group: [facility] Belt Line Feeder: Divina Priest RDCS Ordering Physician: LIZZ MAYER us Lizz Mayer [facility] CV ECHO PROCEDURES Final Resu lt * (ABNORMAL) Arterial blood gas with ionized calcium (08/01/2024 1:52 PM EDT) pH, Arterial 7.46(H) 7.35 - 7.45 pH 08/01/2024 1:55 PM EDT [facility] pCO2, Arterial 34(L) 35 - 48 mmHg 08/01/2024 1:55 PM EDT [facility] pO2, Arterial 300(H) 83 - 100 mmHg 08/01/2024 1:55 PM EDT [facility] HCO3, Arterial 24.2 21.0 - 28.0 mEq/L 08/01/2024 1:55 PM EDT [facility] Calcium, Ion 1.19 1.15 - 1.33 mmol/L 08/01/2024 1:55 PM EDT [facility] O2 Sat, Arterial 98.9(H) 94.0 - 98.0 % 08/01/2024 1:55 PM EDT [facility] Base Excess, Arterial 0.8 -2.0 - 3.0 mmol/L 08/01/2024 1:55 PM EDT [facility] Source Of Oxygen Vent 08/01/2024 1:55 PM EDT [facility] Blood Arterial blood specimen / Unknown Arterial Puncture / Unknown 08/01/2024 1:52 PM EDT 08/01/2024 1:52 PM EDT Narrative [facility] - 08/01/2024 1:55 PM EDT 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 Bebeto Rangel MD LAB BLOOD ORDERABLES Final R esult Performing Organization Address City/[facility]/ZIP Co de Phone Number [facility] [address] [place] [address], [place] * Type and screen (08/01/2024 1:49 PM EDT) ABO Grouping A 08/01/2024 2:54 PM EDT [facility] Rh Type POS 08/01/2024 2:54 PM EDT [facility] Ab Scrn NEG 08/01/2024 2:54 PM EDT [facility] Blood Venous blood specimen / Unknown Venipuncture / Unknown 08/01/2024 1:49 PM EDT 08/01/2024 1:49 PM EDT us Bebeto Rangel MD LAB BLOOD BANK TEST ORDERABL ES Final Result Performing Organization Address City/[facility] Co de Phone Number [facility] * GA AN ELECTIVE ENDOTRACHEAL AIRWAY (08/01/2024 1:29 PM EDT) Bebeto De La Paz MD - 08/01/2024 1:29 PM EDT Regino Brewer MD 08/01/2024 1:43 PM Airway Date/Time: 08/01/2024 1:29 PM Urgency: elective Airway not difficult General Information and Staff Patient location during procedure: [place] Anesthesiologist: Bebeto Rangel MD Resident/PAINTER RAILROAD CAR/CAA: Regino Brewer MD Performed: resident/PAINTER RAILROAD CAR/CAA Indications and Patient Condition Indications for airway [...] ARTERIAL LINE PLACEMENT (08/01/2024 1:00 PM EDT) Bebeto De La Paz MD - 08/01/2024 1:00 PM EDT Bebeto [...] or Ultrasound probe cover. VSS. Staffing Performed: resident/PAINTER RAILROAD CAR/CAA Anesthesiologist: Bebeto Rangel MD Resident/PAINTER RAILROAD CAR: Regino Brewer MD Performed by: Regino Brewer MD Authorized by: Bebeto Rangel MD Bebeto Rangel MD ANESTHESIA ORDERABLES Final Result * CARDIAC DEVICE CHECK - REMOTE - LOOP RECORDER (ILR) (07/28/2024 9:56 AM EDT) Only the most recent of3 resultswithin the time period is included. us Jez Martin MD CV IMPLANTABLE CARDIAC DEVICE GA OCEDURES Final Result [facility] * Cardiac device check - Remote loop recorder (ILR) (07/18/2024 12:00 AM EDT) Anatomical Region Laterality Modality Other 07/18/2024 us Jez Martin MD CV IMPLANTABLE CARDIAC DEVICE GA OCEDURES Final Result * (ABNORMAL) Hemoglobin and hematocrit, blood (06/29/2024 11:10 PM EDT) Only the most recent of6 resultswithin the time period is included. Hemoglobin 8.9(L) 13.0 - 17.0 g/dL 06/29/2024 11:57 PM EDT [facility] ([facility]) Hematocrit 27.7(L) 39.0 - 50.0 % 06/29/2024 11:57 PM EDT [facility] ([facility]) Blood Venous blood specimen / Unknown Arterial Line / Unknown 06/29/2024 11:10 PM EDT 06/29/2024 11:32 PM EDT us Mert Oglesby MD LAB BLOOD ORDERABLES Final Res ult [facility] ([facility]) [address] [place] [address] * Bronchoscopy (06/29/2024 4:09 PM EDT) Anatomical [...] - 212 ug/dL 06/29/2024 11:53 AM EDT [facility] ([facility]) TIBC 227(L) 250 - 450 ug/dL 06/29/2024 11:53 AM EDT [facility] ([facility]) Iron Saturation 18(L) 20 - 50 % 11:53 AM EDT [facility] ([facility]) UIBC 187.0 155.0 - 355.0 ug/dL 06/29/2024 11:53 AM EDT [facility] ([facility]) Blood Venous blood specimen / Unknown Arterial Line / Unknown 06/29/2024 11:06 AM EDT 06/29/2024 11:24 AM EDT us Mert Oglesby MD LAB BLOOD ORDERABLES Final Res ult [facility] ([facility]) [address] [place] [address] * Transferrin (06/29/2024 11:06 AM EDT) Transferrin 195 168 - 348 mg/dL 06/29/2024 11:53 AM EDT [facility]) Blood Venous blood specimen / Unknown Arterial Line / Unknown 06/29/2024 11:06 AM EDT 06/29/2024 11:24 AM EDT us Mert Oglesby MD LAB BLOOD ORDERABLES Final Res ult [facility]) [address] [place] [address] * Folate (06/29/2024 11:06 AM EDT) Folate 7.77 6.6 - 1,000 ng/mL 06/29/2024 12:18 PM EDT [facility]) Blood Venous blood specimen / Unknown Arterial Line / Unknown 06/29/2024 11:06 AM EDT 06/29/2024 11:24 AM EDT us Mert Oglesby MD LAB BLOOD ORDERABLES Final Res ult Performing Organization Address City/[facility]/ZIP Co de Phone Number [facility]) [address] [place] [address] * Ferritin (06/29/2024 11:06 AM EDT) Ferritin 168.0 24.0 - 336.0 ng/mL 06/29/2024 12:18 PM EDT [facility]) Blood Venous blood specimen / Unknown Arterial Line / Unknown 06/29/2024 11:06 AM EDT 06/29/2024 11:24 AM EDT us Mert Oglesby MD LAB BLOOD ORDERABLES Final Res ult [facility]) [address] [place] [address] * Vitamin B12 (06/29/2024 11:06 AM EDT) Vitamin B-12 373 180 - 914 pg/mL 06/29/2024 12:18 PM EDT [facility] ([facility]) Comment: REFERENCE RANGES: 180-914 pg/mL Normal 145-179 pg/mL Indeterminate <145 pg/mL Deficient Blood Venous blood specimen / Unknown Arterial Line / Unknown 06/29/2024 11:06 AM EDT 06/29/2024 11:24 AM EDT us Mert Oglesby MD LAB BLOOD ORDERABLES Final Res ult [facility] ([facility]) [address] [place] [address] * PERC CORONARY INTERVENTION (06/27/2024 4:24 PM EDT) Anatomical Region Laterality Modality Other Narrative 06/27/2024 5:04 PM EDT PROCEDURE PHYSICIAN: Kimani Spring MD . Indications: Chico Baker is a 84 y.o. male who [...] informed consent. he was brought to the laboratory monitor in a fasting state. The left wrist area was prepped and draped in usual fashion. Micropuncture technique was used for access in the left radial artery. A 5-Niuean x 11 cm sheath was placed. Verapamil was given through the sheath, and heparin was administered intravenously. Heparin was administered intravenously and therapeutic ACT was confirmed during the rest of the procedure. A 5-Niuean XB 3.5 LBT guiding catheter was advanced and used to engage the left coronary ostium. Baseline ANGELINA flow was 3. A P[place] coronary guide wire was advanced to the distal first obtuse marginal branch coronary artery. A NC 2.0 x 15 mm Emerge non-compliant balloon was advanced and used to performed balloon angioplasty at the site of the stenosis in the proximal first OM branch with inflations up to 14 Tommy. The balloon was retracted. Angiography was performed. A Synergy XD 2.25 x 16 mm drug-eluting stent was advanced and deployed at 11 Tommy across the stenosis. Intracoronary nitroglycerin was administered [...] proximal stenosis with inflations up to 12 Tommy. The balloon was retracted. Intracoronary nitroglycerine was [...] 8 mm noncompliant balloon inflated at 12 tommy repeatedly. This was followed by advancement and deployment of a Synergy XD 2.5 x 12 mm drug-eluting stent deployed at 11 tommy. 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 [address] [phone] (fax) Transesophageal Echocardiogram[facility] Name: CHICO BAKER Study Date: 06/27/2024 10:06 AM B/P: 170 mmHg/89 mmHg HR: 64 bpm Date of : 1940 Location: [facility] Height: 66 in. Age: 84 year(s) Patient Room: [facility] Weight: 136 lb. Gender: Male [...] (Opiates) 50 micrograms Procedure Staff Reading Group: [facility] Referring Physician: SHAILESH VINSON Belt Line Feeder: JODI Pocne Ordering Physician: LIZZ MAYER Procedure Note Shira Shabazz MD - 06/27/2024 1 [facility] [address] [id number] [phone] (fax) Transesophageal Echocardiogram[facility] Name: CHICO BAKER Study Date: 06/27/2024 10:06 AM B/P: 170 mmHg/89 mmHg HR: 64 bpm Date of : 1940 Location: [facility] Height: 66 in. Age: 84 year(s) Patient Room: [facility] Weight: 136 lb. Gender: Male [...] (Opiates) 50 micrograms Procedure Staff Reading Group: [facility] Referring Physician: SHAILESH VINSON Belt Line Feeder: JODI Ponce Ordering Physician: LIZZ MAYER Lizz Mayer ADMINISTRATIVE MEDICAL DIRECTOR CV ECHO PROCEDURES Final Resu lt * [...] root are obtained in anterior projection, no CAR UNLOADER-CAU views. The annulus measures 29.9 x 23.3 [...] root are obtained in anterior projection, no CAR UNLOADER-CAU views. The annulus measures 29.9 x 23.3 [...] Electronically signed: Mendoza Rodriguez MD. Lizz Mayer ADMINISTRATIVE MEDICAL DIRECTOR IM CT PROCEDURES Final Resul t * CTA [...] Electronically signed: Mendoza Rodriguez MD. Lizz Mayer ADMINISTRATIVE MEDICAL DIRECTOR IM CT PROCEDURES Final Resul t * EGD [...] 05/30/24) Attending Physician: La Nena Brennan MD Supervisor Machine Workers: Duane Kimble MD Procedure Details: Informed consent [...] present for the entire procedure. Lizz Mayer [facility] ENDOSCOPY PROCEDURE ORDERABLE S Final Result * Histology - tissue exam (05/30/2024 1:51 PM EDT) Case Report Surgical Pathology Case: [id number] Authorizing Provider: La Nena Brennan MD Collected: 05/30/2024 1351 Ordering Location: [facility] Main Operating Room Received: 05/30/2024 0560 Pathologist: Jez Vazquez MD Specimens: A) - Gastric, r/o h pylori B) - Proximal Esophagus, r/o EOE C) - Distal Esophagus, r/o EOE 06/07/2024 3:38 PM EDT [facility]) Addendum A. Immunohistochemic al staining for Helicobacter pylori is negative. The control is satisfactory. 06/07/2024 3:38 PM EDT [facility] ([facility]) Addendum electronically signed by Jez Vazquez MD on 06/07/2024 at 1538 EDT Final Diagnosis A. Stomach, biopsy: -Chronic inactive gastritis. -No intestinal metaplasia identified. -See comment. B. Proximal esophagus, biopsy: -Squamous mucosa with no specific abnormality. -No intraepithelial eosinophils identified. C. Distal esophagus, biopsy: -Gastroesophageal junction mucosa with nonspecific chronic inflammation. -No intestinal metaplasia identified. 06/07/2024 3:38 PM EDT [facility] ([facility]) at 1402 EDT Clinical Information Order Diagnoses R13.11 - Oral phase dysphagia [ICD-10-CM] 06/07/2024 3:38 PM EDT [facility] ([facility]) Comment A. Immunohistochemic al staining for Helicobacter pylori organisms is pending with results to follow in an addendum. 06/07/2024 3:38 PM EDT [facility] ([facility]) Gross Description A. Gastric. The specimen is received in formalin labeled Chico Collin and gastric biopsy. It consists of 3 bits and strips of galicia-pink irregular mucosal tissue ranging from 0.2 cm to 0.9 cm in greatest dimension. The specimen is submitted in toto in 1 cassette. Nubia Gutierrez, Pathologists' Supervisor Machine Workers student Susy Feliciano, Pathologists' Supervisor Machine Workers B. Proximal Esophagus. The specimen is received in formalin labeled Chico Collin and proximal esophagus biopsy. It consists of 4 bits of galicia-pink irregular mucosal tissue ranging from 0.2 cm to 0.4 cm in greatest dimension. The specimen is submitted in toto in 1 cassette. Nubia Gutierrez Pathologists' Supervisor Machine Workers student Susy Feliciano, Pathologists' Supervisor Machine Workers C. Distal Esophagus. The specimen is received in formalin labeled Chico Collin and distal esophagus biopsy. It consists of 5 bits of galicia-pink irregular mucosal tissue ranging from 0.2 cm to 0.4 cm in greatest dimension. The specimen is submitted in toto in 1 cassette. Nubia Gutierrez Pathologists' Supervisor Machine Workers student Ssuy Feliciano, Pathologists' Supervisor Machine Workers 06/07/2024 3:38 PM EDT [facility] ([facility]) Microscopic Description Microscopic examination performed. 06/07/2024 3:38 PM EDT [facility] ([facility]) Disclaimer The interpretation o f [...] Amendments of 1998. 06/07/2024 3:38 PM EDT [facility]) Biopsy (Gastric) 05/30/2024 1:51 PM EDT 05/30/2024 3:10 PM EDT Biopsy (procedure) (Proximal Esophagus) 05/30/2024 1:53 PM EDT 05/30/2024 3:10 PM EDT Biopsy (procedure) (Distal Esophagus) 05/30/2024 1:53 PM EDT 05/30/2024 3:10 PM EDT us La Nena Brennan MD LAB PATHOLOGY ORDERABLES Ed ited Result - Final [facility] ([facility]) [address] [place] [address] * Vascular US carotid artery duplex bilateral (05/30/2024 11:19 AM EDT) Anatomical Region Laterality Modality Neck Ultrasound 05/30/2024 11:1 7 AM EDT Impressions 05/31/2024 3:06 PM EDT Notes: Indications: Carotid artery stenosis Dx: Nonrheumatic aortic valve stenosis [I35.0 (ICD-10-CM)]; Other specified symptoms and signs involving the circulatory and respiratory systems [R09.89 (ICD-10-CM)] Performed by student Paris Herrera Right: Heterogeneou irregular plaque with no [...] and respiratory systems [R09.89 (ICD-10-CM)] Performed by student Paris Herrera Right: Heterogeneou irregular plaque with no [...] left internal carotid artery. Lizz Mayer CNP [facility]MM[facility] CV VASCULAR PROCEDURES Fi nal Result from Last 3 Months Insurance MEDICARE Member Subscriber Plan / Payer (Ef fective 2007-Present) Name:Chico Baker Member ID:[id number] Relation to Subscriber:Self Name:Chico Baker Subscriber ID:[id number] Payer ID:[id number] Group ID:Not on file Type:Medicare Address: [facility] [address] OTHER Advance Directives * Full Code [...] 7:55 AM 10/13/2023 2:54 PM Care Teams Pattern Wheel Maker Relationship Specialty Start Date End Date Shailesh Vinson DO [address] [facility] [facility] [place] [address] [place] [phone] PCP - General Family Medicine 08/04/23 Dr. Sheri Christiansen [address] [facility] [address] [place] [address] International Coordinator Cardiology 08/18/23
--- OUTSIDE RECORDS SUMMARY | 2024-08-22 09:39 | XMS_ITS | Encounter Summary ---
Author Organization [facility] Address [address] [place] [address] Phone Care Team Providers Care Informatics Nurse Name Role Phone Shailesh Vinson DO Primary Care Provider [phone] Encounter Details Date Type Department Care Team (Late st Contact Info) Description 08/31/2023 Scanned Document [facility] [address] [place] [address] Scanning, Generic Provider Social History Tobacco Use Types Packs/Day Years [...] Procedure Name Priority Date/Time Associated Diagnosis Comments ECHOCARDIOGRAM 08/31/2023 documented in this encounter Results * Echocardiogram (08/31/2023) Narrative 08/31/2023 Ordered by an unspecified provider. us Generic Provider Scanning CV ECHO PROCEDURES Fin al Result documented in this encounter Visit Diagnoses Not on filedocumented in this encounter Care Teams Informatics Nurse Relationship Specialty Start Date End Date Shailesh Vinson DO PCP - General 03/08/99 documented as of this encounter
--- OUTSIDE RECORDS SUMMARY | 2024-08-22 09:39 | XMS_ITS | Clinical Summary ---
Author Organization [facility] Address [address] [place], [place] [id number] Care Team Providers Care Cnc Machine Operator Name Role Phone Shailesh Vinson Primary Care Provider [phone] Allergies Active Allergy Reactions Criticality Noted Date Comments Larry Inhibitors Unknown 05/09/2015 Gadolinium-Containing Contrast Media Unknown 05/09/2015 Tetanus Vaccines And Toxoid Unknown 05/16/19 16 Medications isosorbide mononitrate ER (IMDUR) 30 mg 24 hr tablet Take 30 mg by mouth once daily. Active carvedilol (COREG) 12.5 mg tablet Take 12.5 mg by mouth twice daily with meals. Active doxazosin (CARDURA) 4 mg tablet Take 4 mg by mouth daily at bedtime. Active aspirin, enteric coated (ASPIRIN, ENTERIC COATED) 81 mg EC tablet Take 81 mg by mouth once daily. Active pravastatin (PRAVACHOL) 40 mg tablet Take 40 mg by mouth once daily. Active nitroglycerin sublingual (NITROQUICK) 0.3 mg SL tablet Dissolve 0.3 mg under the tongue every 5 minutes as needed. Active Active Problems No known active problems Family History Medical History Relation Comments Cancer Brother 8 Cancer Brother 9 Hypertension Brother 10 None Father None Mother Diabetes Sister 5 Hypertension Sister 6 Relation Status Comments Brother 1 Brother 2 Brother 3 Brother 4 Brother 5 Brother 6 Brother 7 Brother 8 Brother 9 Brother 10 Father Mother Sister 1 Sister 2 Sister 3 Sister 4 Alive Sister 5 Sister 6 Social History Tobacco Use Types Packs/Day Years Used Date Smoking Tobacco: Former Cigarettes Smokeless Tobacco: Never Alcohol Use Standard Drinks/Week Comments Yes 5 (1 standard drink = 0.6 oz pur e alcohol) Area Deprivation Index Answer Date Wilfred rded National Score (1-100), lower number is lower ri sk Not on file 02/14/2020 State Score (1-10), lower number is lower risk N ot on file 02/14/2020 Data from: https://www.neighborhoodatlas.medicine.[facility]/. Last address used for calculation Not on file 02/14/2020 Sex and Gender Information Value Date Recorded Sex Assigned at Not on file Legal Sex Male 10:09 AM EST Gender Identity Not on file Sexual Orientation Not on file Last Filed Vital Signs Vital Sign Reading Time Taken Comments Blood Pressure 122/78 12/11/2020 10:42 AM EDT Pulse 60 12/11/2020 10:42 AM EDT Temperature 36.3 C (97.4 F) 05/30/2015 1:00 PM EDT Respiratory Rate 16 10/18/2017 10:28 AM EDT Oxygen Saturation 98% 12/11/2020 10:42 AM EDT Inhaled Oxygen Concentration - - Weight 67.6 kg (149 lb) 12/11/2020 10:42 AM EDT Height 170.2 cm (5' 7 ) 12/11/2020 10:42 AM EDT Body Mass Index 23.34 12/11/2020 10:42 AM EDT Plan of Treatment Health Maintenance Due Date Last Done Comments Anxiety Screening 1960 Depression Screening 1960 DTaP,Tdap,Td Vaccine (1 - Tdap) 1961 Diabetes Screening 06/10/1987 Pneumococcal Vaccine: 50+ (1 of 1 - PCV) 1992 Shingrix Vaccine (1 of 2) 1992 RSV Vaccine (1 - 1-dose 75+ series) 2017 Covid-19 Vaccine (2 - season) 11/07/202310/2020 Advance Directive Discussion 03/08/2024 Influenza Vaccine (Season Ended) 2024 Insurance MEDICARE [place] [id number] Care Teams Cnc Machine Operator Relationship Specialty Start Date End Date Shailesh Vinson DO PCP - General Internal Medicine 05/09/15
--- OUTSIDE RECORDS SUMMARY | 2024-08-22 09:39 | XMS_ITS | Encounter Summary ---
Author Organization [employer] Address [id number] [address] [place] [address] Care Team Providers Care Geographic Information Systems Engineer Name Role Phone KarelShailesh Primary Care Provider [phone] Reason for Visit * Reason Comments Med Refill Encounter Details Date Type Department Care Team (Late st Contact Info) Description 07/25/2022 Refill [facility] [address] [place] [phone] Xi Mccoy PAMichelle [address] [place] [address] Closed nondisplaced intertrochanteric fracture of right femur with routine healing, subsequent encounter Social History Tobacco Use Types Packs/Day Years [...] would appreciate a referral sent to [facility]. documented as of this encounter Visit Diagnoses Diagnosis Closed nondisplaced intertrochanteric fracture of right femur with routine healing, subsequent encounter documented in this encounter Care Teams Geographic Information Systems Engineer Relationship Specialty Start Date End Date Shailesh Vinson DO [address] [place] [address] PCP - General Internal Medicine 10/26/21 documented as of this encounter
--- OUTSIDE RECORDS SUMMARY | 2024-08-22 09:39 | XMS_ITS | Encounter Summary ---
Author Organization [employer] Address [id number] [address] [place] [address] Care Team Providers Care Security System Administrator Name Role Phone Shailesh Vinson Primary Care Provider [phone] Encounter Details Date Type Department Care Team (Late st Contact Info) Description 08/10/2022 [facility] [address] [facility] [address] [place] [address] Cleo Dodge, SHAREE Social History Tobacco Use Types Packs/Day Years [...] Telephone Encounter - Cleo Dodge RN - 08/10/2022 3:10 PM EDT RN called to set up new patient appointment. Patient answered and said he will call back later. documented in this encounter Plan of Treatment [...] he would appreciate a [facility] documented as of this encounter Visit Diagnoses Not on filedocumented in this encounter Care Teams Security System Administrator Relationship Specialty Start Date End Date Shailesh Vinson DO [facility] [place] [address] PCP - General Internal Medicine 10/26/21 documented as of this encounter
[2024-08-22 10:00] LABS: Basophils Percent Auto 0.6 % (0.2-2.0); Eosinophils Absolute Auto 0.1 10^3/uL (0.0-0.7); Eosinophils Percent Auto 1.7 % (0.9-7.0); Hematocrit 35.1 % (42.0-54.0); Hemoglobin 11.4 g/dL (14.0-18.0); Immature Granulocytes Abs Auto 0.02 10^3/uL (0.00-0.03); Immature Granulocytes Pct Auto 0.3 % (0.0-0.5); Lymphocytes Absolute Auto 1.1 10^3/uL (1.2-3.8); Lymphocytes Percent Auto 15.8 % (20.5-60.0); Mean Corpuscular HGB Conc 32.5 g/dL (29.9-35.2); Mean Corpuscular Hemoglobin 30.6 pg (25.9-34.0); Mean Corpuscular Volume 94.4 fL (80.0-94.0); Mean Platelet Volume 10.2 fL (9.5-13.5); Monocytes Absolute Auto 0.7 10^3/uL (0.3-0.8); Monocytes Percent Auto 10.4 % (1.7-12.0); Neutrophils Absolute Auto 4.9 10^3/uL (1.4-6.5); Neutrophils Percent Auto 71.2 % (43.0-75.0); Platelet Count 181 10^3/uL (150-450); Red Blood Count 3.72 10^6/uL (4.70-6.10); Red Cell Distribution Width 13.2 % (11.0-15.0); White Blood Count 6.9 10^3/uL (4.0-11.0)
[2024-08-22 10:33] LABS: Alanine Aminotransferase 16 U/L (16-63); Albumin Globulin Ratio 0.7; Albumin Level 3.1 g/dL (3.4-5.0); Alkaline Phosphatase 116 U/L (46-116); Anion Gap 14.1; Aspartate Amino Transferase 16 U/L (15-37); BUN Creatinine Ratio 23.8; Bilirubin Total 0.6 mg/dL (0.2-1.0); Carbon Dioxide 27.9 mmol/L (21.0-32.0); Chloride 103 mmol/L (98-107); Estimated GFR (African America >60 (>=60 mL/min/1.73m^2); Estimated GFR (Non-African Ame >60 (>=60 mL/min/1.73m^2); Globulin 4.5 g/dL; Glucose 158 mg/dL (74-106); Sodium 141 mmol/L (136-145); Thyroid Stimulating Hormone 1.809 uIU/mL (0.358-3.740); Total Protein 7.6 g/dL (6.4-8.2)
[2024-08-23 06:08] LABS: Vitamin B12 620 pg/mL (232-1245)
== END 2024-08-22 09:36 | disposition home or self-care (01) ==
LOC: LAB 09:36
PROVIDERS: PCP Internal Medicine; Visit Provider Internal Medicine
DX: D64.9 Anemia, unspecified (principal); I25.10 Atherosclerotic heart disease of native coronary artery without angina pectoris; I10 Essential (primary) hypertension; I48.0 Paroxysmal atrial fibrillation; R63.4 Abnormal weight loss; R53.83 Other fatigue
CPT/HCPCS: 36415; 80053; 82607; 82728; 82746; 84443

== ENCOUNTER 2024-09-01 11:43 | Emergency (ER) | payer MEDICARE, OTHER, SELFPAY ==
--- OUTSIDE RECORDS SUMMARY | 2023-09-24 04:15 | XMS_ITS ---
Author Organization [facility] pecialists [facility] Address [address] [address] Care Team Providers Care Wash House Supervisor Name Role Phone Shailesh Vinson DO Primary Care Provider Maria Eugenia Robbins [phone] REASON FOR VISIT [facility]-asst Dr[facility] Felder with [facility] LGB and possible liver/lymph node and bile duct excision Encounters Encounter Location Date Provider Diagnosis [facility] Outpatient [address] [place] [address] 09/24/2023 Maria Eugenia Berry Plan Of Treatment No Information Progress Notes * Reynaldo POLANCO AbadDOB:[birth year] (84 yo M)Acc No.[id number]:09/24/2023 Patient: Reynaldo RALPH Provider: Adrien Berry MD :1940 A ge:83 Y S ex:Male Date:09/24/2023 Address:[address] [id number] Pcp:Shailesh Vinson DO * Images: * Electronic signature of Maria Eugenia Berry MD on 09/01/2024 at 11:55 AM EDT Sign off status: Pending * Provider: Adrien Berry MD Date: 0 09/24/2023 Generated for Printi ng/Faxing/eTransmitting on: 09/01/2024 11:55 AM EDT
--- OUTSIDE RECORDS SUMMARY | 2023-10-12 05:30 | XMS_ITS ---
Author Organization [facility]cialists [facility] Address [address] [place] [address] Care Team Providers Care Housing Assistant Name Role Phone Shailesh Vinson DO Primary Care Provider Unavaila Maria Eugenia Nam Unavailable [phone] REASON FOR VISIT 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
--- OUTSIDE RECORDS SUMMARY | 2024-08-31 13:28 | XMS_ITS | Encounter Summary ---
Author Organization [facility] Address [address] [place] [address] Care Team Providers Care Bar Hostess Name Role Phone KarelShailesh Primary Care Provider [phone] Reason for Referral * Imaging (Routine) - Authorized Specialty Diagnoses / Procedures Referred By Contac t Referred To Contact Cardiology Diagnoses Nonrheumatic aortic valve stenosis Procedures Transthoracic echo (TTE) complete Lizz Irvin CNP [address] [place] [address] Phone: tel: fax: [facility] [address] [place] [address] Phone: tel: fax: Referral ID Status Reason Start Date Expiration Date Visits Requested Visits Authorized [id number] Authorized Perform Procedure 07/04/2024 07/04/2025 1 1 Reason for Visit * Imaging (Routine) - Authorized Specialty Diagnoses / Procedures Referred By Contac t Referred To Contact Cardiology Diagnoses Nonrheumatic aortic valve stenosis Procedures Transthoracic echo (TTE) complete Lizz Irvin CNP [address] [place] [address] Phone: tel: fax: [facility] [address] [place] [address] Phone: tel: fax: Referral ID Status Reason Start Date Expiration Date Visits Requested Visits Authorized [id number] Authorized Perform Procedure 07/04/2024 07/04/2025 1 1 Encounter Details Date Type Department Care Team (Latest Contact Info) Description 08/31/2024 1:28 PM EDT - 08/31/2024 2:13 PM EDT Hospital Encounter [facility] Heart and Vascular Center Heart Station [address] [place] [address] Nonrheumatic aortic valve stenosis Discharge Disposition: Home or Self Care () Social History Tobacco Use Types Packs/Day Years Used Date Smoking Tobacco: Former Cigarettes 2 40 1 958 - 1998 Passive Smoke Exposure: Past Smokeless Tobacco: Never Alcohol Use Standard Drinks/Week Comments Not Currently 3 (1 standard drink = 0.6 oz pur e alcohol) 4x week- [employer] [facility] mobifriendsities Answer Date Recorded In the past 12 [...] any time in the past 12 m [facility], were you homeless or living in a long term (including now)? No 08/02/2024 Hunger Vital Sign [...] 75 mg tabletIndications: Coronary artery disease involving koi coronary artery of koi heart without angina pectoris,Status post insertion of [...] Info) Description 09/04/2024 11:15 AM EDT Follow-Up [facility] Heart at [facility] [address] [place] [address] Kimani Spring MD [address] [facility] [place] [address] 09/19/2024 3:30 PM EDT Consult [facility] Pulmonary [address] [place] [phone] Paul Mayen MD [address] [place] [address] documented as of this encounter Procedures Procedure Name Priority Date/Time Associated Diagnosis Comments COMPLETE ECHO (TTE) W/ IMAGING AGENT Routine 08/31/2024 2:29 PM EDT Nonrheumatic aortic valve stenosis documented in this encounter Results * COMPLETE ECHO (TTE) W/ IMAGING AGENT (08/31/2024 2:29 PM EDT) Anatomical Region Laterality Modality Other 08/31/2024 1:34 PM EDT Narrative 08/31/2024 2:48 PM EDT 1 1 [place] [facility] Heart Station [address] [place] [address] (fax) Echocardiogram-[facility] Name: REYNALDO POLANCO Study Date: 08/31/2024 01:34 PM B/P: / HR: Date of : 1940 Location: [facility] Height: 66 in. Age: 84 [...] No pericardial effusion. Procedure Staff Reading Group: [facility] Policy Checker: Timur Grijalva RDCS Ordering Physician: LIZZ IRVIN Procedure Note Shira Cruz MD - 08/31/2024 1 1 [facility] Heart Station [address] [place] [address] [phone] (fax) Echocardiogram-[facility] Name: REYNALDO POLANCO Study Date: 08/31/2024 01:34 PM B/P: / HR: Date of : 1940 Location: [facility] Height: 66 in. Age: 84 [...] No pericardial effusion. Procedure Staff Reading Group: [facility] Policy Checker: Timur Grijalva RDCS Ordering Physician: LIZZ IRVIN Lizz Irvin [facility] CV ECHO PROCEDURES Final Resu lt documented [...] mg documented in this encounter Care Teams Bar Hostess Relationship Specialty Start Date End Date Shailesh Vinson DO [address] [facility] [place] [address] PCP - General Family Medicine 08/04/23 Dr. Sheri Christiansen [address] [address] Paralegal Internship Cardiology 08/18/23 documented as of this encounter
--- OUTSIDE RECORDS SUMMARY | 2024-08-31 14:15 | XMS_ITS | Encounter Summary ---
Author Organization [facility] Address [address] [place] [address] Care Team Providers Care Tool Setter Apprentice Name Role Phone Shailesh Vinson DO Primary Care Provider [phone] Encounter Details Date Type Department Care Team (Late st Contact Info) Description 08/31/2024 2:15 PM EDT Office Visit [facility] [address] [place] [phone] Regino Corral, WARPING MACHINE OPERATOR [address] [place] [address] Chest pain, unspecified type (Primary Dx); Severe aortic valve stenosis; S/P TAVR (transcatheter aortic valve replacement); RIVERA (dyspnea on exertion); Coronary artery disease involving spokane coronary artery of sp[place]ane heart without angina pectoris; PAF (paroxysmal atrial fibrillation) ([facility]/HCC); Implantable loop recorder present; Primary hypertension Social History Tobacco Use Types Packs/Day Years Used Date Smoking Tobacco: Former Cigarettes 2 40 1 958 - 1998 Passive Smoke Exposure: Past Smokeless Tobacco: Never Tobacco Cessation:Counseling Given: No Alcohol Use Standard Drinks/Week Comments Not Currently 3 (1 standard drink = 0.6 oz pur e alcohol) 4x week- vivian [facility] [employer] Answer Date Recorded In the past 12 months has e [employer], gas, oil, or water [employer] threatened to shut off services in your [...] for arrhythmia found during echocardiogram today per electrical instrument technician, reports chest pain also. HPI: Reynaldo [...] office followed by his echocardiogram. The performing Pan Operator explained during exam she had noticed some [...] Interval 08/31/2024 408 QTC CALCULATION(BAZETT) 08/31/2024 499 R-Cranston 08/31/2024 57 T Wave [place] 08/31/2024 39 Hospital Outpatient Visit on 08/10/2024 Component Date Value Ventricular Rate 08/10/2024 73 Atrial Rate 08/10/2024 73 GA Interval 08/10/2024 148 QRS DURATION 08/10/2024 136 QT Interval 08/10/2024 432 QTC CALCULATION(BAZETT) 08/10/2024 475 P [place] 08/10/2024 59 R-Cranston 08/10/2024 108 T Wave [place] 08/10/2024 13 No results displayed because visit [...] 138 QT Interval 408 QTC CALCULATION(BAZETT) 499 R-Cranston 57 T Wave [place] 39 Impression Sinus rhythm with Premature atrial complexes Non-specific intra-ventricular conduction block Minimal voltage criteria for LVH, may be normal variant ( [place] product ) Cannot rule out Anterior infarct [...] Status post TAVR on 08/01/2024 #Paroxysmal A-fib [id number] at least 4 (HTN, age, [place]) - Continue apixaban 2.5 mg twice daily [...] Spring. No follow-ups on file. Regino Corral, [facility] Cardiovascular Medicine [1] Past Medical History: Diagnosis [...] Contrast media allergy Diverticulosis Dysuria Femur fracture ([facility]/HCC) Foreign body in bladder Hypercholesterolemia Hyperlipidemia IFG [...] heart failure with preserved ejection fraction (HFpEF) ([facility]/HCC) Paroxysmal atrial fibrillation ([facility]/HCC) Clostridium difficile colitis Diarrhea NSTEMI (non-ST elevated myocardial infarction) ([facility]/HCC) NSVT (nonsustained ventricular tachycardia) ([facility]/HCC) Abnormal stress test Coronary artery disease involving spokane coronary artery of sp[place]ane heart with angina pectoris Triple vessel coronary artery disease Hx of ventricular tachycardia S/P cholecystectomy Hx of carotid stenosis Hemoptysis Abrasion of trachea Aortic stenosis, severe Fever Urinary tract infection without hematuria 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 (CMS/HCC) Slow transit constipation Coronary artery disease involving sp[place]ane coronary artery of [place] heart without angina pectoris Abdominal aortic aneurysm [...] Info) Description 09/04/2024 11:15 AM EDT Follow-Up [facility] [address] [place] [address] Kimani Spring MD [address] [place] [address] 09/19/2024 3:30 PM EDT Consult [facility] Pulmonary [address] [place] [address] Paul Mayen MD [address] [place], [place] [id number] documented as of this encounter Procedures Procedure Name Priority Date/Time Associated Diagnosis Comments HIGH SENSITIVITY TROPONIN I Routine 08/31/2024 3:23 PM EDT Chest pain, unspecified type BASIC METABOLIC PANEL Routine 08/31/2024 3:23 PM EDT Chest pain, unspecified type documented in this encounter Results * (ABNORMAL) Basic metabolic panel (08/31/2024 3:23 PM EDT) Sodium 138 136 - 145 mmol/L 08/31/2024 4:10 PM EDT [facility] ([facility]) Potassium 4.4 3.5 - 5.1 mmol/L 08/31/2024 4:10 PM EDT [facility] ([facility]) Chloride 108(H) 98 - 107 mmol/L 08/31/2024 4:10 PM EDT [facility] ([facility]) CO2 21 21 - 31 mmol/L 08/31/2024 4:10 PM EDT [facility] ([facility]) BUN 19 7 - 25 mg/dL 08/31/2024 4:10 PM EDT [facility] ([facility]) Creatinine 0.79 0.70 - 1.30 mg/dL 08/31/2024 4:10 PM EDT [facility] ([facility]) Glucose 106(H) 70 - 100 mg/dL 08/31/2024 4:10 PM EDT [facility] ([facility]) Calcium 8.9 8.6 - 10.3 mg/dL 08/31/2024 4:10 PM EDT [facility] ([facility]) Anion Gap 13 7 - 20 mmol/L 08/31/2024 4:10 PM EDT [facility] ([facility]) eGFR 88.7 >60.0 mL/min/1. 73m*2 08/31/2024 4:10 PM EDT [facility] ([facility]) Comment:[facility] s estimated glomerular filtration rate (eGFR) [...] BUN/Creatinine Ratio 24.1 08/07 4:10 PM EDT [facility] ([facility]) Blood Venous blood specimen / Unknown Venipuncture / Unknown 08/31/2024 3:23 PM EDT 08/31/2024 3:27 PM EDT us Regino Corral [facility] BLOOD ORDERABLES Final Resul t [facility] ([facility]) [address] [place] [address] * (ABNORMAL) High Sensitivity Troponin I (08/31/2024 3:23 PM EDT) High Sensitivity Troponin I 25(H) <20 ng/L 08/31/2024 4:10 PM EDT [facility] ([place]) Blood Venous blood specimen / Unknown Venipuncture / Unknown 08/31/2024 3:23 PM EDT 08/31/2024 3:27 PM EDT us Regino Corral [facility] BLOOD ORDERABLES Final Resul t [facility] ([place]) [address] [place] [address] documented in this encounter Visit Diagnoses Diagnosis Chest pain, unspecified type- Primary Severe aortic valve stenosis Aortic valve disorders S/P TAVR (transcatheter aortic valve replacement) RIVERA (dyspnea on exertion) Other dyspnea and respiratory abnormality Coronary artery disease involving sp[place] coronary artery of sp[place] heart without angina pectoris PAF (paroxysmal atrial fibrillation) ([facility]) Atrial fibrillation Implantable loop recorder present Primary hypertension Unspecified essential hypertension documented in this encounter Care Teams Tool Setter Apprentice Relationship Specialty Start Date End Date Shailesh Vinson DO [address] [place] [address] [place] [address] PCP - General Family Medicine 08/04/23 Dr. Sheri Christiansen [address] [facility] [address] [place] [address] Wet Chemistry Analyst Cardiology 08/18/23 documented as of this encounter
[2024-09-01] VITALS (17 sets, daily range): BP systolic 110–163; BP diastolic 60–98; PULSE 78–147; TEMP 36.8; O2SAT 97–100; BMI 20.2
--- OUTSIDE RECORDS SUMMARY | 2024-09-01 11:55 | XMS_ITS | Encounter Summary ---
Author Organization [facility] Address [address] [place] [place] [address] Care Team Providers Care Catering Sous Chef Name Role Phone Shailesh Vinson DO Primary Care Provider [phone] Encounter Details Date Type Department Care Team (Late st Contact Info) Description 07/18/2024 Orders Only [facility] Cardiology Clinic [address] [place] [address] Jez Martin MD [address] [place] [address] Social History Tobacco Use Types Packs/Day Years Used Date Smoking Tobacco: Former Cigarettes 2 40 1 958 - 1998 Smokeless Tobacco: Never Alcohol Use Standard Drinks/Week Comments Not Currently 3 (1 standard drink = 0.6 oz pur e alcohol) 4x week- [facility] Utilities Answer Date Recorded In the past 12 months has [employer], gas, oil, or water [employer] threatened to shut off services in your [...] any time in the past 12 m [facility], were you homeless or living in a half-way (including now)? No 06/27/2024 Hunger Vital Sign [...] Info) Description 09/04/2024 11:15 AM EDT Follow-Up [facility] Heart at [address] [address] Kimani Spring MD [address] [facility] [place] [address] 09/19/2024 3:30 PM EDT Consult [facility] [address] [place] [phone] Paul Mayen MD [address] [place] [address] documented as of this encounter Procedures Procedure Name Priority Date/Time Associated Diagnosis Comments CARDIAC DEVICE CHECK - REMOTE - LOOP RECORDER (ILR) Routine 07/18/2024 12:00 AM EDT documented in this encounter Results * Cardiac device check - Remote loop recorder (ILR) (07/18/2024 12:00 AM EDT) Anatomical Region Laterality Modality Other 07/18/2024 us Jez Martin MD CV IMPLANTABLE CARDIAC DEVICE NV OCEDURES Final Result documented in this encounter Visit Diagnoses Not on filedocumented in this encounter Care Teams Catering Sous Chef Relationship Specialty Start Date End Date Shailesh Vinson DO [address] [facility] [place] [address] [address] [place] [address] PCP - General Family Medicine 08/04/[address] Dr[address] Sheri Christiansen [address] [facility] [address] [place] [address] Amusement Park Worker Cardiology 08/18/23 documented as of this encounter
--- OUTSIDE RECORDS SUMMARY | 2024-09-01 11:55 | XMS_ITS | Encounter Summary ---
Author Organization [employer] Address [id number] [address] [place] [address] Care Team Providers Care Activities Concierge Name Role Phone Shailesh Vinson Primary Care Provider [phone] Encounter Details Date Type Department Care Team (Late st Contact Info) Description 08/10/2022 Telephone [facility]/Trauma and Adult Reconstruction [address] [facility] [address] [place] [address] Cleo Dodge, SHAREE Social History [...] he would appreciate a [facility]. documented as of this encounter Visit Diagnoses Not on filedocumented in this encounter Care Teams Activities Concierge Relationship Specialty Start Date End Date Shailesh Vinson DO [facility] [place] [address] PCP - General Internal Medicine 10/26/21 documented as of this encounter
--- OUTSIDE RECORDS SUMMARY | 2024-09-01 11:55 | XMS_ITS | Encounter Summary ---
Author Organization [facility] Address [address] [place] [address] Care Team Providers Care Piece Worker Name Role Phone Shailesh Vinson DO Primary Care Provider [phone] Encounter Details Date Type Department Care Team (Late st Contact Info) Description 07/27/[address] [facility] [address] [facility] [address] [place] [address] Jez Vigil DO [address] [place] [address] Social History Tobacco Use Types [...] on filedocumented in this encounter Care Teams Piece Worker Relationship Specialty Start Date End Date Shailesh Vinson DO PCP - General Internal Medicine 07/08/23 documented as of this encounter
--- OUTSIDE RECORDS SUMMARY | 2024-09-01 11:55 | XMS_ITS | Encounter Summary ---
Author Organization [facility] Address [id number] [address] [place] [address] Care Team Providers Care Repeater Operator Name Role Phone Shailesh Vinson DO Primary Care Provider [phone] Encounter Details Date Type Department Care Team (Late st Contact Info) Description 04/29/2022 Orders Only [facility] Orthopedics/Trauma and Adult Reconstruction [address] [place] [phone] Barbara Reynaga RN Social History Tobacco Use [...] appreciate a referral sent to [facility]. documented as of this encounter Visit Diagnoses Not on filedocumented in this encounter Care Teams Repeater Operator Relationship Specialty Start Date End Date Shailesh Vinson DO [address] [place] [address] PCP - General Internal Medicine 10/26/21 documented as of this encounter
--- OUTSIDE RECORDS SUMMARY | 2024-09-01 11:55 | XMS_ITS | Clinical Summary ---
Author Organization [employer] Address [id number] [address] [place] [address] Care Team Providers Care Family Partner Name Role Phone KarelShailesh Caleb AMADOR Primary Care Provider [phone] Allergies Active Allergy Reactions Criticality Noted Date [...] to Leyla. Medical Devices Implanted Type Area Corporate Webmaster Device Identifier Shelf Expiration Date Model / Serial / Lot Nail Im 18cm 11.5mm 125d Shrt Rtrgd Trgn Intertan Ti - [id number] Implanted:Qty: 1 on 10/27/2021 by Robert Coe MD at [facility] Nail [employer] 06/15/2031 [id number] Kit Scr 85mm 11mm 7mm Hip Troch Lg Cmpr Intgr Intlk 80mm - [id number] Implanted:Qty: 1 on 10/27/2021 by Robert Coe MD at [facility] Screw [employer] 02/25/2031 [id number] Screw Bn 32.5mm 5mm Lp Intnl Hex Fem Trgn Im Nl Sys - [id number] Implanted:Qty: 1 on 10/27/2021 by Robert Coe MD at [facility] Scre[employer] 11/26/2029 [id number] Insurance MEDICARE COMMERCIAL Advance Directives * Full Code (Latest Code Status on File) Date Activated Date Inactivated Comments 10/26/2021 10:24 PM 10/30/2021 1:51 PM Care Teams Family Partner Relationship Specialty Start Date End Date Shailesh Vinson DO [address] [place] [address] PCP - General Internal Medicine 10/26/21
--- OUTSIDE RECORDS SUMMARY | 2024-09-01 11:55 | XMS_ITS | Encounter Summary ---
Author Organization [employer] Address [id number] [address] [place] [address] Care Team Providers Care Proof Clerk Name Role Phone Shailesh Vinson DO Primary Care Provider [phone] Encounter Details Date Type Department Care Team (Late st Contact Info) Description 05/15/2022 Telephone [facility] Orthopedics/Trauma and Adult Reconstruction [address] [facility] [address] [place] [address] Delicia Ruiz PA-C [address] [place] [address] Social History Tobacco Use Types [...] he would appreciate a referral sent to [facility]. documented as of this encounter Visit Diagnoses Not on filedocumented in this encounter Care Teams Proof Clerk Relationship Specialty Start Date End Date Shailesh Vinson DO [address] [place] [address] PCP - General Internal Medicine 10/26/21 documented as of this encounter
--- OUTSIDE RECORDS SUMMARY | 2024-09-01 11:55 | XMS_ITS | Encounter Summary ---
Author Organization [employer] Address [facility][id number] [address] [place] [address] Care Team Providers Care Certified Flight Instructor Name Role Phone Shailesh Vinson Primary Care Provider [phone] Encounter Details Date Type Department Care Team (Late st Contact Info) Description 02/03/2022 Orders Only [facility] Orthopedics/Trauma and Adult Reconstruction [address] [place] [address] Barbara Reynaga RN Social History [...] he would appreciate a referral sent to [facility]. documented as of this encounter Visit Diagnoses Not on filedocumented in this encounter Care Teams Certified Flight Instructor Relationship Specialty Start Date End Date Shailesh Vinson DO [address] [place] [address] PCP - General Internal Medicine 10/26/21 documented as of this encounter
--- OUTSIDE RECORDS SUMMARY | 2024-09-01 11:55 | XMS_ITS | Referral Summary ---
Author Organization [facility] Address [address] [place] [address] Care Team Providers Care Practicing Urologist Name Role Phone Shailesh Vinson DO Primary Care Provider [phone] Encounters Date Type Department Care Team Description 09/01/2024 Results Follow-Up [facility] [address] [place] [phone] Harika Rees CNP ECG 12 lead 08/31/2024 2:14 PM EDT - 08/31/2024 11:59 PM EDT Hospital Encounter [facility] [address] [place] [address] Arrived Discharge Disposition: Home or Self Care (01) 08/31/2024 2:15 PM EDT Office Visit [facility] [address] [place] [address] Regino Dunn CNP Chest pain, unspecified type (Primary Dx); Severe aortic valve stenosis; S/P TAVR (transcatheter aortic valve replacement); RIVERA (dyspnea on exertion); Coronary artery disease involving [place] coronary artery of [place] heart without angina pectoris; PAF (paroxysmal atrial fibrillation) (CMS/HCC); Implantable loop recorder present; Primary hypertension 08/31/2024 Orders Only [facility] [address] [place] [phone] Harika Rees CNP Coronary artery disease involving [place] coronary artery of [place] heart without angina pectoris (Primary Dx); Paroxysmal atrial fibrillation (CMS/HCC) 08/31/2024 1:28 PM EDT - 08/31/2024 2:13 PM EDT Hospital Encounter [facility] [address] [place] [address] Nonrheumatic aortic valve stenosis Discharge Disposition: Home or Self Care () 08/15/2024 12:45 PM EDT Follow-Up [facility] [address] [place] [address] Jez Martin MD S/P TAVR (transcatheter aortic valve replacement) (Primary Dx) 08/10/2024 3:20 PM EDT - 08/10/2024 11:59 PM EDT Hospital Encounter [facility] [address] [place] [address] S/P TAVR (transcatheter aortic valve replacement) Discharge Disposition: Home or Self Care () 08/10/2024 2:00 PM EDT Follow-Up [facility] [address] [place] [address] Aggie, , BROKERAGE COORDINATOR Hematoma of neck, sequela (Primary Dx); S/P TAVR (transcatheter aortic valve replacement) 08/10/2024 1:40 PM EDT Follow-Up [facility] [address] [place] [address] Kimani Spring MD S/P TAVR (transcatheter aortic valve replacement) (Primary Dx); Primary hypertension; Coronary artery disease involving [place] coronary artery of [place] heart without angina pectoris; PAF (paroxysmal atrial fibrillation) (CMS/HCC); Status post insertion of drug eluting coronary artery stent; PAD (peripheral artery disease) 08/01/2024 9:20 AM EDT - 08/06/2024 3:02 PM EDT Hospital Encounter [facility] [address] [place] [address] Kimani Spring MD Lee, Jai, MD Horani, Omar, MD Iqbal, Isa, MD Severe aortic valve stenosis (Primary Dx); Nonrheumatic aortic valve stenosis; S/P TAVR (transcatheter aortic valve replacement); Aortic stenosis, severe; Acute cystitis without hematuria Discharge Disposition: Home-Health Care Svc (06) 08/01/2024 Travel 08/01/2024 Refill [facility] [address] [place] [phone] Machelle Mann MA Paroxysmal atrial fibrillation ([facility]/HCC) 08/01/2024 1:15 PM EDT Anesthesia Event [facility] [place] [facility] [address] [place] [address] Kathi Lyons MD Uberoi, Ravindera, MD 08/01/2024 9:16 AM EDT - 08/01/2024 9:19 AM EDT [facility] [address] [place] [address] Nonrheumatic aortic valve stenosis Discharge Disposition: Home or Self Care () 08/01/2024 11:00 AM EDT - 08/01/2024 1:00 PM EDT Surgery [facility] [address] [place] [address] Kimani Spring MD TAVR 07/27/2024 Orders Only [facility] [address] [place] [address] Ag Hummel, SHAREE 07/26/2024 Orders Only [facility] [address] [facility] [place] [address] Lizz Mayer, JOANNA Contrast media allergy 07/19/2024 5:15 PM EDT Ancillary Procedure [facility] [address] [facility] [place] [address] Awareness of heartbeats 07/18/2024 Orders Only [facility] [address] [place] [address] Jez Martin MD 07/13/2024 Travel 07/10/2024 9:45 AM EDT Office Visit [facility] [address] [place] [address] Kimani Spring MD Nonrheumatic aortic valve stenosis (Primary Dx); Coronary artery disease involving [place] coronary artery of [place] heart without angina pectoris; PAF (paroxysmal atrial fibrillation) (CMS/HCC); PAD (peripheral artery disease); Contrast media allergy; Status post insertion of drug eluting coronary artery stent; Chronic anemia 07/04/2024 Orders Only [facility] [address] [facility] [place] [address] Lizz Mayer CNP Nonrheumatic aortic valve stenosis (Primary Dx) 06/27/2024 8:42 AM EDT - 06/30/2024 2:39 PM EDT Hospital Encounter [facility] [address] [facility] [place] [address] Kimani Spring MD Salahaldeen, Aya, MD Chang, Kyu Chul, MD Abrasion of trachea (Primary Dx); 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; Nonrheumatic aortic valve stenosis; Hemoptysis; Triple vessel coronary artery disease; Paroxysmal atrial fibrillation (CMS/HCC); Chronic anemia Discharge Disposition: Home or Self Care () 06/29/2024 3:52 PM EDT Anesthesia Event [facility] Main Operating Room [address] [facility] [place] [address] Kathi Lyons MD Brewer, Shawn, DEVIN 06/29/2024 Travel 06/27/2024 Travel 06/27/2024 1:30 PM EDT - 06/27/2024 3:30 PM EDT Surgery [facility] [address] [facility] [place] [address] Kimani Spring MD Percutaneous coronary intervention 06/20/2024 Orders Only [facility] [address] [facility] [place] [address] Lizz Mayer CNP 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 (Primary Dx); Nonrheumatic aortic valve stenosis 06/20/2024 Travel 06/20/2024 Orders Only [facility] [address] [place] [address] Francisca Luciano RN Nonrheumatic aortic valve stenosis (Primary Dx) 06/19/2024 8:20 PM EDT Ancillary Procedure [facility] [address] [facility] [place] [address] Awareness of heartbeats 06/19/2024 Orders Only [place] [address] [place] [address] Evy Muhammad MA 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 06/18/2024 Orders Only [facility] [address] [place] [address] Lizz Mayer CNP Nonrheumatic aortic valve stenosis (Primary Dx) 06/15/2024 Orders Only [facility] [address] [place] [address] Lizz Mayer CNP Nonrheumatic aortic valve stenosis (Primary Dx) 06/06/2024 12:22 PM EDT Hospital Encounter [facility] [place] [address] Nonrheumatic aortic valve stenosis Discharge Disposition: Home or Self Care () 06/06/2024 12:23 PM EDT - 06/06/2024 11:59 PM EDT Hospital Encounter [facility] [address] [facility] [place] [address] Nonrheumatic aortic valve stenosis Discharge Disposition: Home or Self Care () from Last 3 Months Allergies Active Allergy [...] 75 mg tabletIndication s:Coronary artery disease involving [place] coronary artery of [place] heart without angina pectoris,Status post insertion of [...] 24 025 Discontinu ed(Stop Taking at Discharge) aspirin 81 mg EC tabletIndication s:Triple vessel [...] daily MiraLAX Coronary artery disease invo lving [place] coronary artery of [place] heart without angina pectoris 08/04/2024 Assessment & [...] post stenting Coronary artery disease invo lving [place] coronary artery of [place] heart with angina pectoris 06/20/2024 Assessment & [...] 0.6 oz pur e alcohol) 4x week- impok [facility] [employer] Answer Date Recorded In the past 12 months has [employer], [employer], or [employer] threatened to shut off services in your [...] time in the past 12 m [facility], were you homeless or living in [...] F) 08/31/2024 2:42 PM EDT Respiratory Rate 17 08/06/2024 12:00 PM EDT Oxygen Saturation 99% 08/15/2024 1:24 PM EDT Inhaled Oxygen Concentration - - Weight 56.7 kg (125 lb) 08/31/2024 2:42 PM EDT Height 167.6 cm (5' 6 ) 08/31/2024 2:42 PM EDT Body Mass Index 20.18 08/31/2024 2:42 PM EDT Plan of Treatment Upcoming Encounters Date Type Department Care Team (Late st Contact Info) Description 09/04/2024 11:15 AM EDT Follow-Up [facility] [address] [place] [address] Kimani Spring MD [address] [facility] [address] [facility] [place] [address] 09/19/2024 3:30 PM EDT Consult [facility] [address] [place] [phone] Paul Mayen MD [address] [place] [address] Medical Devices Implanted Type Area Compressor Technician Device Identifier Shelf Expiration Date Model / Serial / Lot Stent,Synerg y Mr 2.25 X 16 - [id number] Implanted:Qt y: 1 on 06/27/2024 by Kimani Spring MD at [facility] Drug Eluting Stent N/A: Coronary [employer] [id number] 09/06/2025 [id number] / / [id number] Stent,Synerg y Mr 2.50 X 12 - [id number] Implanted:Qt y: 1 on 06/27/2024 by Kimani Spring MD at [facility] Drug Eluting Stent N/A: Coronary [employer] [id number] 08/01/2025 [id number] / / [id number] Monitor,Card iac,Lux,Dxii +[facility] - [id number] - [id number] Implanted:Qt y: 1 on 04/12/2024 by Jez Martin MD at [facility] Implantable Loop Recorder N/A: Chest [employer] 08/02/2025 [id number] / [id number] / Valve,Aortic ,Evolutfm+,2 9mm - [id number] - [id number] Implanted:Qt y: 1 on 08/01/2024 by Kimani Spring MD at [facility] Prosthetic Valve N/A: Aorta [employer] [id number] 03/30/2026 EVFXPLUS -29 / [id number] / Procedures Procedure Name Priority Date/Time Associated Diagnosis Comments CBC WITH AUTO DIFFERENTIAL Routine 08/31/2024 3:23 PM EDT Nonrheumatic aortic valve stenosis BASIC METABOLIC PANEL Routine 08/31/2024 3:23 PM EDT Chest pain, unspecified type HIGH SENSITIVITY TROPONIN I Routine 08/31/2024 3:23 PM EDT Chest pain, unspecified type CBC AND DIFFERENTIAL Routine 08/31/2024 3:23 PM EDT Nonrheumatic aortic valve stenosis COMPLETE ECHO (TTE) W/ IMAGING AGENT Routine 08/31/2024 2:29 PM EDT Nonrheumatic aortic valve stenosis ECG 12-LEAD Routine 08/31/2024 2:20 PM EDT Coronary artery disease involving [place] coronary artery of [place] heart without angina pectoris Paroxysmal atrial fibrillation (CMS/HCC) ECG 12-LEAD Routine 08/10/2024 3:28 PM EDT [...] AND SCREEN Routine 08/01/2024 1:49 PM EDT WA AN ELECTIVE ENDOTRACHEAL AIRWAY Routine 08/01/2024 1:29 [...] 1:10 PM EDT Nonrheumatic aortic valve stenosis from Last 3 Months Results * (ABNORMAL) High Sensitivity Troponin I (08/31/2024 3:23 PM EDT) [facility] High Sensitivity Troponin I 25(H) <20 ng/L 08/31/2024 4:10 PM EDT [facility] ([facility]) Blood Venous blood specimen / Unknown Venipuncture / Unknown 08/31/2024 3:23 PM EDT 08/31/2024 3:27 PM EDT us Regino Dunn BROKERAGE COORDINATOR LAB BLOOD ORDERABLES Final Resul t [facility] ([facility]) [address] [place] [address] * (ABNORMAL) CBC auto differential (08/31/2024 3:23 PM EDT) Only the most recent of5 resultswithin the time period is included. Auto WBC 11.33(H) 4.00 - 10.60 10*3/uL 08/31/2024 3:35 PM EDT [facility] ([facility]) RBC 4.01(L) 4.20 - 5.70 10*6/uL 08/31/2024 3:35 PM EDT [facility] ([facility]) Hemoglobin 11.9(L) 13.0 - 17.0 g/dL 08/31/2024 3:35 PM EDT [facility] ([facility]) Hematocrit 37.9(L) 39.0 - 50.0 % 08/31/2024 3:35 PM EDT [facility] ([facility]) MCV 94.5 82.0 - 98.0 fL 08/31/2024 3:35 PM EDT [facility] ([facility]) MCH 29.7 27.0 - 33.0 pg 08/31/2024 3:35 PM EDT [facility] ([facility]) MCHC 31.4(L) 32.0 - 35.0 g/dL 08/31/2024 3:35 PM EDT [facility] ([facility]) RDW 13.4 11.5 - 15.0 % 08/31/2024 3:35 PM EDT [facility] ([facility]) Neutrophils % 75.8(H) 40.0 - 72.0 % 08/31/2024 3:35 PM EDT [facility]) Lymphocytes % 14.0(L) 20.0 - 45.0 % 08/31/2024 3:35 PM EDT [facility] ([facility]) Monocytes % 8.3 5.0 - 12.0 % 08/31/2024 3:35 PM EDT [facility] ([facility]) Eosinophils % 1.1 0.0 - 6.0 % 08/31/2024 3:35 PM EDT [facility] ([facility]) Basophils % 0.4 0.0 - 1.0 % 08/31/2024 3:35 PM T [facility] ([facility]) Neutrophils Absolute 8.58(H) 1.60 - 7.60 10*3/uL 08/31/2024 3:35 PM EDT [facility] ([facility]) Lymphocytes Absolute 1.59 1.20 - 4.00 10*3/uL 08/31/2024 3:35 PM EDT [facility] ([facility]) Monocytes Absolute 0.94 0.10 - 1.00 10*3/uL 08/31/2024 3:35 PM EDT [facility]) Eosinophils Absolute 0.13 0.00 - 0.50 10*3/uL 08/31/2024 3:35 PM EDT [facility] ([facility]) Basophils Absolute 0.05 0.00 - 0.20 10*3/uL 08/31/2024 3:35 PM EDT [facility]) Platelets 195 150 - 400 10*3/uL 08/31/2024 3:35 PM EDT [facility]) nRBC % 0.0 0 % 08/31/2024 3:35 PM T [facility]) Immature Granulocytes % 0.4 0.0 - 1.0 % 08/31/2024 3:35 PM T [facility]) Immature Granulocytes Absolute 0.04 0.00 - 0.20 10*3/uL 08/31/2024 3:35 PM T [facility]) Blood Venous blood specimen / Unknown Venipuncture / Unknown 08/31/2024 3:23 PM EDT 08/31/2024 3:27 PM EDT us Lizz Mayer BROKERAGE COORDINATOR LAB BLOOD ORDERABLES Final Re sult [facility] ([facility]) [address] [place] [address] * (ABNORMAL) Basic metabolic panel (08/31/2024 3:23 PM EDT) Only the most recent of9 resultswithin the time period is included. Sodium 138 136 - 145 mmol/L 08/31/2024 4:10 PM EDT [facility] ([facility]) Potassium 4.4 3.5 - 5.1 mmol/L 08/31/2024 4:10 PM EDT [facility] ([facility]) Chloride 108(H) 98 - 107 mmol/L 08/31/2024 4:10 PM EDT [facility] ([facility]) CO2 21 21 - 31 mmol/L 08/31/2024 4:10 PM EDT [facility] ([facility]) BUN 19 7 - 25 mg/dL 08/31/2024 4:10 PM EDT [facility] ([facility]) Creatinine 0.79 0.70 - 1.30 mg/dL 08/31/2024 4:10 PM EDT [facility] ([facility]) Glucose 106(H) 70 - 100 mg/dL 08/31/2024 4:10 PM EDT [facility] ([facility]) Calcium 8.9 8.6 - 10.3 mg/dL 08/31/2024 4:10 PM EDT [facility] ([facility]) Anion Gap 13 7 - 20 mmol/L 08/31/2024 4:10 PM EDT [facility] ([facility]) eGFR 88.7 >60.0 mL/min/1. 73m*2 08/31/2024 4:10 PM EDT [facility] ([facility]) Comment:[facility] s estimated glomerular filtration rate (eGFR) will [...] BUN/Creatinine Ratio 24.1 08/07 4:10 PM EDT [facility] ([facility]) Blood Venous blood specimen / Unknown Venipuncture / Unknown 08/31/2024 3:23 PM EDT 08/31/2024 3:27 PM EDT us Regino Dunn [facility] LAB BLOOD ORDERABLES Final Resul t [facility] ([facility]) [address] [place], [place] [id number] * COMPLETE ECHO (TTE) W/ IMAGING AGENT (08/31/2024 2:29 PM EDT) Anatomical Region Laterality Modality Other 08/31/2024 1:34 PM EDT Narrative 08/31/2024 2:48 PM EDT 1 1 [facility] [address] [place], [place] [id number] (fax) Echocardiogram-[facility] Name: REYNALDO BAKER Study Date: 08/31/2024 01:34 PM B/P: / HR: Date of : 1940 Location: [facility] [...] No pericardial effusion. Procedure Staff Reading Group: [facility] [employer] Machine Tender: Timur Grijalva RDCS Ordering Physician: LIZZ MAYER Procedure Note Shira Cruz MD - 08/31/2024 1 1 [facility] [address] [place] [address] [phone] (fax) Echocardiogram[facility] Name: REYNALDO BAKER Study Date: 08/31/2024 01:34 PM B/P: / HR: Date of : 1940 Location: [facility] [...] days- Spoke with Dr. Spring and Regino WEN is seeing patient in Clinic today Due [...] No pericardial effusion. Procedure Staff Reading Group: [facility] [employer] Machine Tender: Timur Grijalva RDCS Ordering Physician: LIZZ MAYER Lizz Mayer [facility] CV ECHO PROCEDURES Final Resu lt * ECG 12 lead (08/31/2024 2:20 PM EDT) Only the most recent of6 resultswithin the time period is included. Ventricular Rate 90 BPM GE MUSE QRS DURATION 138 ms GE MUSE QT Interval 408 ms GE MUSE QTC CALCULATION(BAZE TT) 499 ms GE MUSE R-Lamar 57 degrees GE MUSE T Wave Lamar 39 degrees GE MUSE 08/31/2024 2:17 PM EDT 08/31/2024 2:27 PM EDT Impressions GE MUSE - 08/31/2024 2:27 PM EDT Sinus rhythm with Premature atrial complexes Non-specific intra-ventricular conduction block Minimal voltage criteria for LVH, may be normal variant ( Durant product ) Cannot rule out Anterior infarct , age undetermined Abnormal ECG When compared with ECG of 10-AUG-2024 15:25, QRS axis Shifted left Confirmed by Saloni HORN, L.S. (2) on 08/31/2024 2:27:23 PM Narrative Procedure Note Brianna Horn MD - 08/31/2024 IMPRESSION: Sinus rhythm with Premature atrial complexes Non-specific intra-ventricular conduction block Minimal voltage criteria for LVH, may be normal variant ( Durant product ) Cannot rule out Anterior infarct , age undetermined Abnormal ECG When compared with ECG of 10-AUG-2024 15:25, QRS axis Shifted left Confirmed by Saloni HORN, L.S. (2) on 08/31/2024 2:27:23 PM us Harika Rees BROKERAGE COORDINATOR ECG ORDERABLES Final Result Performing Organization Address City/[facility]/ZIP Co de Phone Number GE MUSE * (ABNORMAL) Magnesium (08/06/2024 3:42 AM EDT) Only the most recent of4 resultswithin the time period is included. Pathologist [facility] Magnesium 1.7(L) 1.9 - 2.7 mg/dL 08/06/2024 4:46 AM EDT [facility] ([facility]) Blood Venous blood specimen / Unknown Venipuncture / Unknown 08/06/2024 3:42 AM EDT 08/06/2024 4:22 AM EDT us Isa Camarillo MD LAB BLOOD ORDERABLES Final Resul t Performing Organization Address [facility] de Phone Number [facility]) [address] [place] [address] * Occult blood x 1, stool (08/05/2024 8:23 PM EDT) Pathologist [facility] Fecal Occult Bld Negative Negative, None Detected 08/05/2024 8:54 PM EDT [facility]) Stool Rectal contents / Unknown Non-blood Collection / Unknown 08/05/2024 8:23 PM EDT 08/05/2024 8:27 PM EDT us Isa Camarillo MD LAB BODY FLUIDS AND STOOLS ORDER LEONILA Final Result Performing Organization Address City/[facility] Co de Phone Number [facility]) [address] [place] [address] * Prepare RBC (08/05/2024 8:30 AM EDT) Only the most recent of2 resultswithin the time period is included. PRODUCT CODE [id number] [facility] Unit Number [id number] [facility] BLOOD BANK Unit ABO A [facility] Unit Rh POS [facility] Dispense Status RE [facility] Blood Expiration Date [id number] [facility] Product Blood Type 6200 [facility] Unit Volume 300 ML [facility] PRODUCT CODE [id number] [facility] Unit Number [id number] [facility] BLOOD BANK Unit ABO A [facility] Unit Rh POS [facility] Dispense Status RE [facility] Blood Expiration Date [id number] [facility] Product Blood Type 6200 [facility] us Regino Brewer MD BLOOD BANK PRODUCT ORDERABLES Fi nal Result Performing Organization Address City/[facility]/ZIP Co de Phone Number [facility] * Lavender Top (08/05/2024 3:53 AM EDT) Only the most recent of2 resultswithin the time period is included. Extra Tube Hold for add-ons. 08/05/2024 6:01 AM EDT [facility] ([facility]) Comment:Auto resulted. Blood Venous blood specimen / Unknown 08/05/2024 3:53 AM EDT 08/05/2024 4:14 AM EDT us Isa Camarillo MD LAB BLOOD ORDERABLES Final Resul t [facility] ([facility]) [address] [place] [address] * XR chest 1 view (08/04/2024 6:35 [...] - 1.0 % 08/03/2024 2:22 PM EDT [facility] ([facility]) Neutrophils Absolute 11.2(H) 1.6 - 7.6 10*3/uL 08/03/2024 2:22 PM EDT [facility] ([facility]) Lymphocytes Absolute 1.06(L) 1.20 - 4.00 10*3/uL 08/03/2024 2:22 PM EDT [facility] ([facility]) Monocytes Absolute 1.68(H) 0.10 - 1.00 10*3/uL 08/03/2024 2:22 PM EDT [facility] ([facility]) Eosinophils Absolute 0.00 0.00 - 0.50 10*3/uL 08/03/2024 2:22 PM EDT [facility] ([facility]) Basophils Absolute 0.01 0.00 - 0.20 10*3/uL 08/03/2024 2:22 PM EDT [facility] ([facility]) Neutrophils % 79.7(H) 40.0 - 72.0 % 08/03/2024 2:22 PM EDT [facility] ([facility]) Lymphocytes % 7.5(L) 20.0 - 45.0 % 08/03/2024 2:22 PM EDT [facility] ([facility]) Monocytes % 11.9 5.0 - 12.0 % 08/03/2024 2:22 PM EDT [facility] ([facility]) Eosinophils % 0.0 0.0 - 6.0 % 08/03/2024 2:22 PM EDT [facility] ([facility]) Basophils % 0.1 0.0 - 1.0 % 08/03/2024 2:22 PM EDT [facility] ([facility]) Immature Granulocytes Absolute 0.11 0.00 - 0.20 10*3/uL 08/03/2024 2:22 PM EDT [facility] ([facility]) Blood Venous blood specimen / Unknown Venipuncture / Unknown 08/03/2024 12:33 PM EDT 08/03/2024 1:04 PM EDT Radha Campoverde PA-C LAB BLOOD ORDERABLES Areli l Result [facility]) [address] [place], [place] [id number] * Blood culture (08/03/2024 12:33 PM EDT) Only the most recent of2 resultswithin the time period is included. Blood Culture No growth at 5 days TONJA 08/08/2024 2:01 PM EDT [facility] ([facility]) Blood Venous blood specimen / Unknown Venipuncture / Unknown 08/03/2024 12:33 PM EDT 08/03/2024 1:04 PM EDT Lesly Marcial CNP LAB MICROBIOLOGY - GENERAL ORDAmy JEONG Final Result [facility]) [address] [place] [address] * (ABNORMAL) Lipid panel (08/03/2024 12:33 PM EDT) Triglycerides 165(H) <150 mg/dL 08/03/2024 1:58 PM EDT [facility]) Comment: TRIGLYCERIDE REFERENCE RANGE: 20 YEARS AND OLDER CARDIOVASCULAR RISK LESS THAN 150 mg/dL LOW RISK 150 TO 199 mg/dL BORDERLINE RISK 200 mg/dL AND GREATER HIGH RISK Cholesterol 86(L) 120 - 200 mg/dL 08/03/2024 1:58 PM EDT [facility] ([facility]) LDL Calculated 30 0 - 160 mg/dL 08/03/2024 1:58 PM EDT [facility] ([facility]) HDL 23 23 - 92 mg/dL 08/03/2024 1:58 PM EDT [facility] ([facility]) Non HDL Cholesterol 63 08/03/2024 1:58 PM EDT [facility] ([facility]) Total VLDL-C 33 0 - 40 mg/dL 08/03/2024 1:58 PM EDT [facility] ([facility]) Cholesterol/HDL Ratio 3.7 mg/dL 08/03/2024 1:58 PM EDT [facility] ([facility]) Blood Venous blood specimen / Unknown Venipuncture / Unknown 08/03/2024 12:33 PM EDT 08/03/2024 1:04 PM EDT Stan Simms MD LAB BLOOD ORDERABLES Final Resu lt [facility] ([facility]) [address] [place] [address] * (ABNORMAL) Urinalysis microscopic with reflex culture (08/03/2024 9:43 AM EDT) RBC, Urine >20(A) None Seen, 0-2 /HPF 08/03/2024 10:22 AM EDT [facility] ([facility]) WBC, Urine 11-20(A) None Seen, 0-2 /HPF 08/03/2024 10:22 AM EDT [facility] ([facility]) Squamous Epithelial, Urine Occasional None Seen, Occasional , Few /LPF 08/03/2024 10:22 AM EDT [facility] ([facility]) Mucus, Urine Occasional None Seen, Occasional , Few /LPF 08/03/2024 10:22 AM T [facility] ([facility]) Urine Urine specimen obtained by clean catch procedure / Unknown Non-blood Collection / Unknown 08/03/2024 9:43 AM EDT 08/03/2024 9:48 AM EDT us Mark Anthony Frey MD LAB URINE ORDERABLES Final Resul t [facility] ([facility]) [address] [place], [place] [id number] * (ABNORMAL) Urinalysis with reflex culture (08/03/2024 9:43 AM EDT) Color, Urine Yellow Colorless, Yellow, Light-Yellow 08/03/2024 10:22 AM EDT [facility] ([facility]) Clarity, Urine Clear Clear 08/03/2024 10:22 AM EDT [facility] ([facility]) pH, Urine 5.5 5.0 - 8.0 pH 08/03/2024 10:22 AM EDT [facility] ([facility]) Leukocytes, Urine Moderate(A) Negative 08/03/2024 10:22 AM EDT [facility] ([facility]) Nitrite, Urine Negative Negative 08/03/2024 10:22 AM EDT [facility] ([facility]) Protein, Urine Negative Negative mg/dL 08/03/2024 10:22 AM EDT [facility] ([facility]) Glucose, Urine Normal Normal mg/dL 08/03/2024 10:22 AM EDT [facility] ([facility]) Bilirubin, Urine Negative Negative 08/03/2024 10:22 AM EDT [facility] ([facility]) Specific [place], Urine 1.030 1.010 - 1.030 08/03/2024 10:22 AM EDT [facility] ([facility]) Ketones, Urine Negative Negative mg/dL 08/03/2024 10:22 AM EDT [facility] ([facility]) Blood, Urine Large(A) Negative 08/03/2024 10:22 AM EDT [facility] ([facility]) Urobilinogen, Urine Normal Normal mg/dL 08/03/2024 10:22 AM T [facility] ([facility]) Urine Urine specimen obtained by clean catch procedure / Unknown Non-blood Collection / Unknown 08/03/2024 9:43 AM EDT 08/03/2024 9:48 AM EDT Mark Anthony Frey MD LAB URINE ORDERABLES Final Resul t [facility] ([facility]) [address] [place] [address] * Urine culture, routine (08/03/2024 9:43 AM EDT) Urine Culture No growth at 48 hours TONJA 08/05/2024 7:43 AM EDT [facility] ([facility]) Urine Urine specimen obtained by clean catch procedure / Unknown Non-blood Collection / Unknown 08/03/2024 9:43 AM EDT 08/03/2024 9:48 AM EDT Mark Anthony Frey MD LAB MICROBIOLOGY - GENERAL ORDER LEONILA Final Result Performing Organization Address City/[facility] Co de Phone Number [facility] ([facility]) [address] [place] [address] * FL modified barium swallow (08/02/2024 10:46 [...] of multiple consistencies were administered. Fluoroscopic time [id number] seconds. 11.4 mgy. Deep laryngeal penetration with [...] materials of multiple consistencieswere administered. Fluoroscopic time [id number] seconds. 11.4 mgy. Deep laryngeal penetration with [...] Narrative 08/02/2024 10:27 AM EDT 1 [facility] [address] [place] [address] [phone] (fax) [facility]ch[facility]ogram[facility] Name: REYNALDO BAKER Study Date: 08/02/2024 07:47 [...] No pericardial effusion. Procedure Staff Reading Group: [facility] Referring Physician: SHAILESH VINSON Marble Machine Tender: Darleen Carmona, PAYAM, RVT, RN, BSN Ordering Physician: LIZZ MAYER Procedure Note Shira Cruz MD - 08/02/2024 1 1 [facility] [address] [place] [address] [phone] (fax) Echocardiogram[facility] Name: REYNALDO BAKER Study Date: 08/02/2024 07:47 [...] No pericardial effusion. Procedure Staff Reading Group: [facility] Referring Physician: SHAILESH VINSON Marble Machine Tender: Darleen Carmona RDCS, RVT, RN, BSN Ordering Physician: LIZZ MAYER us Lizz Mayer BROKERAGE COORDINATOR CV ECHO PROCEDURES Final Resu lt * (ABNORMAL) CBC (08/02/2024 4:29 AM EDT) Only the most recent of5 resultswithin the time period is included. Auto WBC 22.16(H) 4.00 - 10.60 10*3/uL 08/02/2024 5:48 AM EDT [facility] ([facility]) RBC 2.92(L) 4.20 - 5.70 10*6/uL 08/02/2024 5:48 AM EDT [facility] ([facility]) Hemoglobin 8.7(L) 13.0 - 17.0 g/dL 08/02/2024 5:48 AM EDT [facility] ([facility]) Hematocrit 27.1(L) 39.0 - 50.0 % 08/02/2024 5:48 AM EDT [facility] ([facility]) MCV 92.8 82.0 - 98.0 fL 08/02/2024 5:48 AM EDT [facility] ([facility]) MCH 29.8 27.0 - 33.0 pg 08/02/2024 5:48 AM EDT [facility] ([facility]) MCHC 32.1 32.0 - 35.0 g/dL 08/02/2024 5:48 AM EDT [facility] ([facility]) RDW 13.1 11.5 - 15.0 % 08/02/2024 5:48 AM EDT [facility] ([facility]) Platelets 195 150 - 400 10*3/uL 08/02/2024 5:48 AM EDT [facility] ([facility]) Blood Venous blood specimen / Unknown Arterial Line / Unknown 08/02/2024 4:29 AM EDT 08/02/2024 4:40 AM EDT us Lizz Mayer [facility] BLOOD ORDERABLES Final Re sult Performing Organization Address City/[facility]/ZIP Co de Phone Number [facility]) [address] [place] [address] * (ABNORMAL) POCT glucose meter (08/01/2024 5:02 PM EDT) Only the most recent of2 resultswithin the time period is included. Glucose POC 174(H) 70 - 105 mg/dL 08/01/2024 5:13 PM EDT [facility] ([facility]) Comment: Blood Capillary blood specimen / Unknown 08/01/2024 5:02 PM EDT 08/01/2024 5:13 PM EDT Narrative [facility] ([facility]) - 08/01/2024 5:13 PM EDT Waived Testing in the ED is performed under the ED CLIA certificate #[id number]. us Generic Provider Poct LAB BLOOD ORDERABLES Final Result [facility]) [address] [place], [place] [id number] * (ABNORMAL) APTT (08/01/2024 5:00 PM EDT) aPTT 40.3(H) 25.0 - 35.0 Seconds 08/01/2024 5:36 PM EDT [facility] ([facility]) Comment:Clinical significanc e of the APTT is questionable in the presence of heparin. Blood Venous blood specimen / Unknown Arterial Line / Unknown 08/01/2024 5:00 PM EDT 08/01/2024 5:03 PM EDT us Hal Kirkpatrick [facility] BLOOD ORDERABLES Fi nal Result [facility] ([facility]) [address] [place] [address] * (ABNORMAL) Protime-INR (08/01/2024 5:00 PM EDT) Protime 16.6(H) 12.3 - 14.8 Seconds 08/01/2024 5:36 PM EDT [facility] ([facility]) INR 1.35(H) 0.90 - 1.10 08/01/2024 5:36 PM EDT [facility] ([facility]) Comment: ACCCP RECOMMENDED INR FOR WARFARIN THERAPY [...] PM EDT 08/01/2024 5:03 PM EDT Hal Melgoza [employer] [facility] BLOOD ORDERABLES Fi nal Result [facility] ([facility]) [address] [place] [address] * Phosphorus (08/01/2024 5:00 PM EDT) Phosphorus 3.5 2.5 - 5.0 mg/dL 08/01/2024 5:35 PM EDT [facility] ([facility]) Blood Venous blood specimen / Unknown Arterial Line / Unknown 08/01/2024 5:00 PM EDT 08/01/2024 5:06 PM EDT Hal [employer] [facility] BLOOD ORDERABLES Fi nal Result Performing Organization Address [facility] Co de Phone Number [facility] ([facility]) [address] [place] [address] * TAVR (08/01/2024 4:03 PM EDT) Anatomical [...] vein under ultrasound guidance. OPERATORS: Interventional Cardiology Wood Turner: Kimani Spring MD Cardiac Surgery Wood Turner: Mark Anthony Frey MD Supervisor Research Kennel Interventional Cardiology Wood Turner: Abhay Knutson Interventional Fellow Fellow: Dr. Sander Ware METHODS: Procedure was explained to the patient with risks and benefits. he signed informed consent. he was brought to photographic laboratory supervisor in a fasting state. The procedure was performed in the cardiac photographic laboratory supervisor under general anesthesia. Both groin areas, and the right neck area were prepped and draped in usual fashion. Micropuncture technique and ultrasound guidance were used for access in the right common femoral artery and inner cannula angiography was performed followed by upsizing to a 6-Kyrgyz x 11 cm sheath. The same was done for the access in the right common femoral vein. A 5-Kyrgyz balloon-tipped pacemaker wire was advanced through the femoral vein sheath to the right ventricular apex and adequate capture was confirmed. Through the right common femoral sheath, an angled 6-Kyrgyz pigtail catheter was then advanced to the [...] in the common carotid artery and a 10-Kyrgyz x 11 cm sheath was placed. A 6-Kyrgyz AL1 diagnostic catheter was advanced via the carotid sheath, and using a straight stiff Glidewire, the aortic valve was crossed and the catheter was advanced in the left ventricular cavity, and using an exchange length J-wire, a 6-Kyrgyz angled pigtail catheter was advanced to make [...] the valve over the wire across the [place] aortic valve, and under pacing at 120 [...] and removed outside of the body. The 14-Kyrgyz access sheath was placed across the carotid access and a 6-Kyrgyz angled pigtail catheter was advanced across the [...] - 08/07/2024 8:06 AM EDT Qc lot [id number]; custom feed mill operator [id number] Kimani Spring MD POINT OF CARE TEST ENTER/KARTIK T ORDERABLES Final Result * LIMITED ECHOCARDIOGRAM (TTE) W/ LTD DOPPLER AND COLOR FLOW (08/01/2024 3:33 PM EDT) Anatomical Region Laterality Modality Other 08/01/2024 10:4 4 AM EDT Narrative 08/01/2024 5:24 PM EDT 1 1 [facility] [address] [place] [address] [phone] (fax) [facility]chocardiogram[facility] Name: REYNALDO BAKER Study Date: 08/01/2024 10:44 [...] No pericardial effusion. Procedure Staff Reading Group: [facility] Marble Machine Tender: Divina Priest RDCS Ordering Physician: LIZZ MAYER Procedure Note Shira Cruz MD - 08/01/2024 1 1 [facility] [address] [place] [address] [phone] (fax) [facility]ocardiogram[facility] Name: REYNALDO BAKER Study Date: 08/01/2024 10:44 [...] No pericardial effusion. Procedure Staff Reading Group: [facility] Marble Machine Tender: Divina Priest RDCS Ordering Physician: LIZZ MAYER Lizz Mayer [facility] CV ECHO PROCEDURES Final Resu lt [...] RESPIRATORY THERAPY - 08/01/2024 1:55 PM EDT curb and gutter laborer us Bebeto Rangel MD LAB BLOOD ORDERABLES Final R esult [facility] [address] [place] [address], * Type and screen (08/01/2024 1:49 PM [...] BLOOD BANK TEST ORDERABL ES Final Result [facility] * WA AN ELECTIVE ENDOTRACHEAL AIRWAY (08/01/2024 1:29 PM EDT) Narrative Bebeto Rangel MD - 08/01/2024 1:29 PM EDT Regino Brewer MD 08/01/2024 1:43 PM Airway Date/Time: 08/01/2024 1:29 PM Urgency: elective Airway not difficult General Information and Staff Patient location during procedure: OR Anesthesiologist: Bebeto Rangel MD Resident/SORT OPERATIONS SUPERVISOR/CAA: Regino Brewer MD Performed: resident/SORT OPERATIONS SUPERVISOR/CAA Indications and Patient Condition Indications for airway management: anesthesia Spontaneous Ventilation: absent Sedation level: deep Preoxygenated: yes Mask difficulty assessment: 1 - vent by mask Final Airway Details Final airway type: endotracheal airway Successful airway: ETT Cuffed: yes Successful intubation technique: video laryngoscopy Facilitating devices/methods: intubating stylet Endotracheal tube insertion site: oral Blade: Plascnecia Blade size: #3 ETT size (mm): 7.5 Cormack-Lehane Classification: grade I - full view of glottis Placement verified by: chest auscultation and capnometry Measured from: lips ETT to lips (cm): 22 Number of attempts at approach: 1 Number of other approaches attempted: 0 us Bebeto Rangel MD ANESTHESIA ORDERABLES Final [...] or Ultrasound probe cover. VSS. Staffing Performed: resident/ATTILA/DEVIN Anesthesiologist: Bebeto Rangel MD Resident/SORT OPERATIONS SUPERVISOR: Regino Brewer MD Performed by: Regino Brewer MD Authorized by: Bebeto Rangel MD us Bebeto Rangel MD ANESTHESIA ORDERABLES Final Result * CARDIAC DEVICE CHECK - REMOTE - LOOP RECORDER (ILR) (07/28/2024 9:56 AM EDT) Only the most recent of2 resultswithin the time period is included. us Jez Martin MD CV IMPLANTABLE CARDIAC DEVICE WA OCEDURES Final Result Performing Organization Address City/[facility] Co de Phone Number [facility] * Cardiac device check - Remote loop recorder (ILR) (07/18/2024 12:00 AM EDT) Anatomical Region Laterality Modality Other 07/18/2024 Jez Martin MD CV IMPLANTABLE CARDIAC DEVICE WA OCEDURES Final Result * (ABNORMAL) Hemoglobin and hematocrit, blood (06/29/2024 11:10 PM EDT) Only the most recent of6 resultswithin the time period is included. Hemoglobin 8.9(L) 13.0 - 17.0 g/dL 06/29/2024 11:57 PM EDT [facility] ([facility]) Hematocrit 27.7(L) 39.0 - 50.0 % 06/29/2024 11:57 PM EDT [facility] ([facility]) Blood Venous blood specimen / Unknown Arterial Line / Unknown 06/29/2024 11:10 PM EDT 06/29/2024 11:32 PM EDT us Mert Oglesby MD LAB BLOOD ORDERABLES Final Res ult [facility] ([facility]) [address] [place] [address] * Bronchoscopy (06/29/2024 4:09 PM EDT) Anatomical [...] & Critical Care Medicine 4:21 PM 06/29/24 Paul Mayen MD ENDOSCOPY PROCEDURE ORDERABLES Final Result * (ABNORMAL) Iron and TIBC (06/29/2024 11:06 AM EDT) Iron 40(L) 50 - 212 ug/dL 06/29/2024 11:53 AM EDT [facility] ([facility]) TIBC 227(L) 250 - 450 ug/dL 06/29/2024 11:53 AM EDT [facility] ([facility]) Iron Saturation 18(L) 20 - 50 % 11:53 AM EDT [facility] ([facility]) UIBC 187.0 155.0 - 355.0 ug/dL 06/29/2024 11:53 AM EDT [facility]) Blood Venous blood specimen / Unknown Arterial Line / Unknown 06/29/2024 11:06 AM EDT 06/29/2024 11:24 AM EDT Mert Oglesby MD LAB BLOOD ORDERABLES Final Res ult [facility]) [address] [place] [address] * Transferrin (06/29/2024 11:06 AM EDT) Transferrin 195 168 - 348 mg/dL 06/29/2024 11:53 AM EDT [facility]) Blood Venous blood specimen / Unknown Arterial Line / Unknown 06/29/2024 11:06 AM EDT 06/29/2024 11:24 AM EDT Mert Oglesby MD LAB BLOOD ORDERABLES Final Res ult Performing Organization Address [facility]/ZIP Co de Phone Number [facility]) [address] [place] [address] * Folate (06/29/2024 11:06 AM EDT) Folate 7.77 6.6 - 1,000 ng/mL 06/29/2024 12:18 PM EDT [facility]) Blood Venous blood specimen / Unknown Arterial Line / Unknown 06/29/2024 11:06 AM EDT 06/29/2024 11:24 AM EDT us Mert Oglesby MD LAB BLOOD ORDERABLES Final Res ult [facility]) [address] [place] [address] * Ferritin (06/29/2024 11:06 AM EDT) Ferritin 168.0 24.0 - 336.0 ng/mL 06/29/2024 12:18 PM EDT [facility] ([facility]) Blood Venous blood specimen / Unknown Arterial Line / Unknown 06/29/2024 11:06 AM EDT 06/29/2024 11:24 AM EDT us Mert Oglesby MD LAB BLOOD ORDERABLES Final Res ult Performing Organization Address City/[facility]/ZIP Co de Phone Number [facility] ([facility]) [address] [place] [address] * Vitamin B12 (06/29/2024 11:06 AM EDT) Vitamin B-12 373 180 - 914 pg/mL 06/29/2024 12:18 PM EDT [facility] ([facility]) Comment: REFERENCE RANGES: 180-914 pg/mL Normal 145-179 pg/mL Indeterminate <145 pg/mL Deficient Blood Venous blood specimen / Unknown Arterial Line / Unknown 06/29/2024 11:06 AM EDT 06/29/2024 11:24 AM EDT us Mert Oglesby MD LAB BLOOD ORDERABLES Final Res ult Performing Organization Address City/[facility] Co de Phone Number [facility] ([facility]) [address] [place] [address] * PERC CORONARY INTERVENTION (06/27/2024 4:24 PM [...] informed consent. he was brought to the photographic laboratory supervisor in a fasting state. The left wrist area was prepped and draped in usual fashion. Micropuncture technique was used for access in the left radial artery. A 5-Kyrgyz x 11 cm sheath was placed. Verapamil was given through the sheath, and heparin was administered intravenously. Heparin was administered intravenously and therapeutic ACT was confirmed during the rest of the procedure. 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 [address] [phone] (fax) Transesophageal Echocardiogram-[facility] Name: REYNALDO BAKER Study Date: 06/27/2024 10:06 AM B/P: 170 mmHg/89 mmHg HR: 64 bpm Date of : 1940 Location: [facility] Height: 66 in. Age: 84 year(s) Patient Room: [facility] Weight: 136 lb. Gender: Male Patient Status: [...] (Opiates) 50 micrograms Procedure Staff Reading Group: [facility] Referring Physician: SHAILESH VINSON Marble Machine Tender: JODI Ponce Ordering Physician: LIZZ MAYER Procedure Note Shira Cruz MD - 06/27/2024 1 [place] [facility] [address] [facility] [place] [address] [phone] (fax) Transesophageal Echocardiogram[facility] Name: REYNALDO BAKER Study Date: 06/27/2024 10:06 AM B/P: 170 mmHg/89 mmHg HR: 64 bpm Date of : 1940 Location: [facility] Height: 66 in. Age: 84 year(s) Patient Room: [facility] Weight: 136 lb. Gender: Male [...] (Opiates) 50 micrograms Procedure Staff Reading Group: [facility] Referring Physician: SHAILESH VINSON Marble Machine Tender: Ngozi Onofre [facility] Ordering Physician: LIZZ MAYER us Lizz Mayer BROKERAGE COORDINATOR CV ECHO PROCEDURES Final Resu lt * [...] root are obtained in anterior projection, no SECURITY CONSULTANT-CAU views. The annulus measures 29.9 x 23.3 [...] root are obtained in anterior projection, no SECURITY CONSULTANT-CAU views. The annulus measures 29.9 x 23.3 [...] Electronically signed: Mendoza Rodriguez MD. Lizz Mayer [facility] CT PROCEDURES Final Resul t * CTA [...] signed: Mendoza Rodriguez MD. Lizz Mayer CNP [facility] CT PROCEDURES Final Resul t from Last 3 Months Insurance MEDICARE GENERIC OTHER Advance Directives * Full Code (Latest [...] 7:55 AM 10/13/2023 2:54 PM Care Teams Practicing Urologist Relationship Specialty Start Date End Date Shailesh Vinson DO [address] [facility] [place] [address] PCP - General Family Medicine 08/04/23 Dr. Sheri Christiansen [address] [facility] [address] [place] [id number] Spray Ii Painter Cardiology 08/18/23
--- OUTSIDE RECORDS SUMMARY | 2024-09-01 11:55 | XMS_ITS | Encounter Summary ---
Author Organization Tails tem Address [id number] [address] [place] [address] Care Team Providers Care Electric Motor Tester Name Role Phone Shailesh Vinson Primary Care Provider [phone] Encounter Details Date Type Department Care Team (Late st Contact Info) Description 08/07/2022 [facility]phone [facility]/Trauma and Adult Reconstruction [address] [facility] [address] [place] [address] Cleo Dodge, RN Social History [...] [facility] a [facility] documented as of this encounter Visit Diagnoses Not on filedocumented in this encounter Care Teams Electric Motor Tester Relationship Specialty Start Date End Date Shailesh Vinson DO [address] [place] [address] PCP - General Internal Medicine 10/26/21 documented as of this encounter
--- OUTSIDE RECORDS SUMMARY | 2024-09-01 11:55 | XMS_ITS | Encounter Summary ---
Author Organization [facility] Address [address] [place] [address] Care Team Providers Care Tram Operator Name Role Phone Shailesh Vinson DO Primary Care Provider [phone] Reason for Referral * (Routine) - Pending Review Specialty Diagnoses / Procedures Referred By Contac t Referred To Contact Diagnoses Coronary artery disease involving [place] coronary artery of [place] heart without angina pectoris Paroxysmal atrial fibrillation (CMS/HCC) Procedures ECG 12 lead Harika Rees CNP [address] [place] [address] Phone: tel: fax: Referral ID Status Reason Start Date Expiration Date V isits Requested Visits Authorized [id number] Pending Review 08/31/2024 08/31/2025 1 1 Encounter Details Date Type Department Care Team (Late st Contact Info) Description 08/31/2024 Orders Only [facility] Heart and Vascular [facility] Heart Station [address] [place] [address] Harika Rees CNP [address] [place] [address] Coronary artery disease involving manchester coronary artery of [place] heart without angina pectoris (Primary Dx); Paroxysmal atrial fibrillation (CMS/HCC) Social History Tobacco Use Types Packs/Day Years Used Date Smoking Tobacco: Former Cigarettes 2 40 1 958 - 1997 Passive Smoke Exposure: Past Smokeless Tobacco: Never Alcohol Use Standard Drinks/Week Comments Not Currently 3 (1 standard drink = 0.6 oz pur e alcohol) 4x week- sivaemi [facility] Utilities Answer Date Recorded In [...] any time in the past 12 m [facility], were you homeless or living in a long-term (including now)? No 08/02/2024 Hunger Vital Sign [...] AM EDT documented as of this encounter Progress Notes * Harika Rees CNP - 08/31/2024 2:01 PM EDT technical support director requested EKG to be ordered for noted irregular rhythm during echo Harika Rees [facility] Cardiology Available 7a-3pm via [employer] [phone] documented in this encounter Plan of Treatment Upcoming Encounters Date Type Department Care Team (Late st Contact Info) Description 09/04/2024 11:15 AM EDT Follow-Up [facility] Heart at [facility] [address] [place] [address] Kimani Spring MD [address] [facility] [address] [facility] [place] [id number] 09/19/2024 3:30 PM EDT Consult [facility] Pulmonary [address] [place] [address] Paul Mayen MD [address] [place] [address] documented as of this encounter Procedures Procedure Name Priority Date/Time Associated Diagnosis Comments ECG 12-LEAD Routine 08/31/2024 2:20 PM EDT Coronary artery disease involving [place] coronary artery of [place] heart without angina pectoris Paroxysmal atrial fibrillation (CMS/HCC) documented in this encounter Results * ECG 12 lead (08/31/2024 2:20 PM EDT) Ventricular Rate 90 BPM GE MUSE QRS DURATION 138 ms GE MUSE QT Interval 408 ms GE MUSE QTC CALCULATION(BAZE TT) 499 ms GE MUSE R-Converse 57 degrees GE MUSE T Wave Converse 39 degrees GE MUSE 08/31/2024 2:17 PM EDT 08/31/2024 2:27 PM EDT Impressions GE MUSE - 08/31/2024 2:27 PM EDT Sinus rhythm with Premature atrial complexes Non-specific intra-ventricular conduction block Minimal voltage criteria for LVH, may be normal variant ( [place] product ) Cannot rule out Anterior infarct , age undetermined Abnormal ECG When compared with ECG of 10-AUG-2024 15:25, QRS axis Shifted left Confirmed by Saloni JOE, L.S. (2) on 08/31/2024 2:27:23 PM Narrative Procedure Note Brianna Joe MD - 08/31/2024 IMPRESSION: Sinus rhythm with Premature atrial complexes Non-specific intra-ventricular conduction block Minimal voltage criteria for LVH, may be normal variant ( [place] product ) Cannot rule out Anterior infarct , age undetermined Abnormal ECG When compared with ECG of 10-AUG-2024 15:25, QRS axis Shifted left Confirmed by Saloni JOE, L.S. (2) on 08/31/2024 2:27:23 PM Harikayessi Rees [facility] ECG ORDERABLES Final Result [place] [employer] documented in this encounter Visit Diagnoses Diagnosis Coronary artery disease involving [place] coronary artery of [place] heart without angina pectoris- Primary Paroxysmal atrial fibrillation (CMS/HCC) Atrial fibrillation documented in this encounter Care Teams Tram Operator Relationship Specialty Start Date End Date Shailesh Vinson DO [address] [facility] [place] [address] [place] [address] PCP - General Family Medicine 08/04/23 Dr. Sheri Christiansen [address] [facility] [address] [place] [address] Public Policy Associate Cardiology 08/18/23 documented as of this encounter
--- OUTSIDE RECORDS SUMMARY | 2024-09-01 11:55 | XMS_ITS | Encounter Summary ---
Author Organization [employer] [facility] Address [id number] [address] [place] [address] Care Team Providers Care Lead Etl Developer Name Role Phone KarelShailesh Primary Care Provider [phone] Reason for Visit * Reason Comments Med Refill Encounter Details Date Type Department Care Team (Late st Contact Info) Description 07/25/2022 Refill [facility] [address] [place] [phone] Xi Mccoy PAMichelle [address] [place] [address] Closed nondisplaced intertrochanteric fracture of [...] would appreciate a referral sent to [facility]. documented as of this encounter Visit Diagnoses Diagnosis Closed nondisplaced intertrochanteric fracture of right femur with routine healing, subsequent encounter documented in this encounter Care Teams Lead Etl Developer Relationship Specialty Start Date End Date Shailesh Vinson DO [address] [place] [address] PCP - General Internal Medicine 10/26/21 documented as of this encounter
--- OUTSIDE RECORDS SUMMARY | 2024-09-01 11:55 | XMS_ITS | Encounter Summary ---
Author Organization [facility] Address [id number] [address] [place] [address] Care Team Providers Care Hedis Manager Name Role Phone Shailesh Vinson DO Primary Care Provider [phone] Encounter Details Date Type Department Care Team (Late st Contact Info) Description 05/08/2022 Orders Only [facility] [address] [place] [phone] Barbara Reynaga RN Social History Tobacco Use [...] Progress Patient-Stated? Author Safe discharge General Yes aYne Bradford, SHAREE Note: Evaluation of progress towards goal: Patient typically lives at home independent, but had an IM nailing done today and may need some rehab post-discharge. Patient is waiting for PT/OT evaluation, but if SNF is recommended, he would appreciate a referral sent to [facility] [place]. documented as of this encounter Visit Diagnoses Not on filedocumented in this encounter Care Teams Hedis Manager Relationship Specialty Start Date End Date Shailesh Vinson DO [address] [place] [address] PCP - General Internal Medicine 10/26/21 documented as of this encounter
--- OUTSIDE RECORDS SUMMARY | 2024-09-01 11:55 | XMS_ITS | Encounter Summary ---
Author Organization [facility] Address [address] [place] [address] Care Team Providers Care Criminal Investigative Agent Name Role Phone Shailesh Vinson DO Primary Care Provider [phone] Encounter Details Date Type Department Care Team (Late st Contact Info) Description 09/01/2024 Results Follow-Up [facility] Heart and Vascular Center Heart Station [address] [place] [address] Harika Rees, JOANNA [address] [place] [address] ECG 12 lead Social History Tobacco Use Types Packs/Day Years Used Date Smoking Tobacco: Former Cigarettes 2 40 1 958 - 1998 Passive Smoke Exposure: Past Smokeless Tobacco: Never Alcohol Use Standard Drinks/Week Comments Not Currently 3 (1 standard drink = 0.6 oz pur e alcohol) 4x week- [facility] Utilities Answer Date Recorded In the past 12 months has [employer], gas, oil, or water [employer] threatened to shut off services in your [...] any time in the past [address] [facility], were you homeless or living in a senior care (including now)? No 08/02/2024 Hunger Vital Sign [...] as of this encounter Miscellaneous Notes * Result Encounter Note - Harika Rees CNP - 09/01/2024 10:21 AM EDT EKG sinus rhythm with frequent PACs documented in this encounter Plan of Treatment Upcoming Encounters Date Type Department Care Team (Late st Contact Info) Description 09/04/2024 11:15 AM EDT Follow-Up [facility] Heart at [place] [address] [place] [address] Kimani Spring MD [address] [facility] [address] [facility] [place] [address] 09/19/2024 3:30 PM EDT Consult [facility] Pulmonary [address] [place] [address] Paul Mayen MD [address] [place] [address] documented as of this encounter Visit Diagnoses Not on filedocumented in this encounter Care Teams Criminal Investigative Agent Relationship Specialty Start Date End Date Shailesh Vinson DO [address] [facility] [place] [address] PCP - General Family Medicine 08/04/23 Dr. Sheri Christiansen [address] [address] Copy Room Technician Cardiology 08/18/23 documented as of this encounter
--- OUTSIDE RECORDS SUMMARY | 2024-09-01 11:56 | XMS_ITS | Encounter Summary ---
Author Organization [employer] Address [id number] [address] [place] [address] Care Team Providers Care Dental Scheduler Name Role Phone Shailesh Vinson Primary Care Provider [phone] Reason for Visit * Reason Onset Date Comments PT Discharge 10/30/2021 Encounter Details Date Type Department Care Team (Late st Contact Info) Description 10/30/2021 Telephone [facility] [address] [place] [address] Paula Amezquita MD [address] [place] [address] PT Discharge Social History Tobacco [...] following for preoperative cardiac care. Echocardiogram showed [id number] aortic stenosis. He is currently stable from [...] he would appreciate a referral sent to [facility]. documented as of this encounter Visit Diagnoses Not on filedocumented in this encounter Care Teams Dental Scheduler Relationship Specialty Start Date End Date Shailesh Vinson DO [address] [place] [address] PCP - General Internal Medicine 10/26/21 documented as of this encounter
--- OUTSIDE RECORDS SUMMARY | 2024-09-01 11:56 | XMS_ITS | Patient Health Record ---
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 Assessments Encounter Date Diagnosis (ICD Code) Assessment Notes Treatment Notes Treatment Clinical Notes Section Notes 10/12/2023 Neoplasm of uncertain behavior of liver, 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
--- OUTSIDE RECORDS SUMMARY | 2024-09-01 11:56 | XMS_ITS | Clinical Summary ---
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 with angina pectoris 06/20/2024 Assessment & [...] Department Care Team Description 09/01/2024 Results Follow-Up [facility] [address] [place] [address] Harika Rees CNP ECG 12 lead 08/31/2024 2:15 PM EDT Office Visit [facility] [address] [place] [address] Regino Dunn CNP Chest pain, unspecified type (Primary Dx); Severe aortic valve stenosis; S/P TAVR (transcatheter aortic valve replacement); RIVERA (dyspnea on exertion); 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; PAF (paroxysmal atrial fibrillation) ([facility]); Implantable loop recorder present; Primary hypertension 08/31/2024 2:14 PM EDT - 08/31/2024 11:59 PM EDT Hospital Encounter [facility] [address] [place] [address] Arrived Discharge Disposition: Home or Self Care () 08/31/2024 1:28 PM EDT - 08/31/2024 2:13 PM EDT Hospital Encounter [facility] [address] [place] [address] Nonrheumatic aortic valve stenosis Discharge Disposition: Home or Self Care () 08/31/2024 Orders Only [facility] [address] [place] [address] Harika Rees CNP 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 (Primary Dx); Paroxysmal atrial fibrillation (CMS/HCC) 08/15/2024 12:45 PM EDT Follow-Up [facility] [address] [place] [address] Jez Martin MD S/P TAVR (transcatheter aortic valve replacement) (Primary Dx) 08/10/2024 3:20 PM EDT - 08/10/2024 11:59 PM EDT Hospital Encounter [facility] Heart [facility] [address] [place] [address] S/P TAVR (transcatheter aortic valve replacement) Discharge Disposition: Home or Self Care (01) 08/10/2024 2:00 PM EDT Follow-Up [facility] [address] [place] [address] Lesly Marcial CNP Hematoma of neck, sequela (Primary Dx); S/P TAVR (transcatheter aortic valve replacement) 08/10/2024 1:40 PM EDT Follow-Up [facility] [address] [place] [address] Kimani Spring MD S/P TAVR (transcatheter aortic valve replacement) (Primary Dx); Primary hypertension; 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; PAF (paroxysmal atrial fibrillation) (CMS/HCC); Status post insertion of drug eluting coronary artery stent; PAD (peripheral artery disease) 08/01/2024 1:15 PM EDT Anesthesia Event [facility] [address] [place] [address] Kathi Lyons MD Uberoi, Ravindera, MD 08/01/2024 11:00 AM EDT - 08/01/2024 1:00 PM EDT Surgery [facility] [address] [place] [address] Kimani Spring MD TAVR 08/01/2024 9:20 AM EDT - 08/06/2024 3:02 PM EDT Hospital Encounter [facility]VCU [address] [place] [address] Kimani Spring MD Lee, Jai, MD Horani, Omar, MD Iqbal, Amna, MD Severe aortic valve stenosis (Primary Dx); Nonrheumatic aortic valve stenosis; S/P TAVR (transcatheter aortic valve replacement); Aortic stenosis, severe; Acute cystitis without hematuria Discharge Disposition: Home-Health Care Svc () 08/01/2024 9:16 AM EDT - 08/01/2024 9:19 AM EDT Hospital Encounter [facility] [address] [address] Nonrheumatic aortic valve stenosis Discharge Disposition: Home or Self Care () 08/01/2024 Travel 08/01/[address] [address] Machelle Mann MA Paroxysmal atrial fibrillation (CMS/HCC) 07/27/2024 Orders Only [facility] Pre-Anesthesia Clinic [address] [address] Ag Hummel RN 07/26/2024 Orders Only [facility] [address] [place] [address] Lizz Mayer CNP Contrast media allergy 07/19/2024 5:15 PM EDT Ancillary Procedure [facility] [address] [place] [address] Awareness of heartbeats 07/18/2024 Orders Only [facility] [address] [place], [place] [address] [place] [address] Jez Martin MD 07/13/2024 Travel 07/10/2024 9:45 AM EDT Office Visit [facility] [address] [place] [address] Kimani Spring MD Nonrheumatic aortic valve stenosis (Primary Dx); 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; PAF (paroxysmal atrial fibrillation) (CMS/HCC); PAD (peripheral artery disease); Contrast media allergy; Status post insertion of drug eluting coronary artery stent; Chronic anemia 07/04/2024 Orders Only [facility] [address] [place] [address] Lizz Mayer CNP Nonrheumatic aortic valve stenosis (Primary Dx) 06/29/2024 3:52 PM EDT Anesthesia Event [facility] Main Operating Room [address] [place] [address] Kathi Lyons MD Brewer, Shawn, CAA 06/29/2024 Travel 06/27/2024 1:30 PM EDT - 06/27/2024 3:30 PM EDT Surgery [facility] [address] [place] [address] Kimani Spring MD Percutaneous coronary intervention 06/27/2024 8:42 AM EDT - 06/30/2024 2:39 PM EDT Hospital Encounter [facility] [address] [place] [address] Kimani Spring MD Salahaldeen, Aya, MD Chang, Kyu Chul, MD Abrasion of trachea (Primary Dx); 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; Nonrheumatic aortic valve stenosis; Hemoptysis; Triple vessel coronary artery disease; Paroxysmal atrial fibrillation (CMS/HCC); Chronic anemia Discharge Disposition: Home or Self Care () 06/27/2024 Travel 06/20/2024 Orders Only [facility] [address] [place] [address] Lizz Mayer CNP 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 (Primary Dx); Nonrheumatic aortic valve stenosis 06/20/2024 Travel 06/20/2024 Orders Only [facility] Heart [facility] [address] [place] [address] Francisca Luciano RN Nonrheumatic aortic valve stenosis (Primary Dx) 06/19/2024 8:20 PM EDT Ancillary Procedure [facility] [address] [place] [address] Awareness of heartbeats 06/19/2024 Orders Only [facility] [address] [place] [address] Evy Muhammad MA 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 06/18/2024 Orders Only [facility] [address] [place] [address] Lizz Mayer CNP Nonrheumatic aortic valve stenosis (Primary Dx) 06/15/2024 Orders Only [facility] [address] [place] [address] Lizz Mayer CNP Nonrheumatic aortic valve stenosis (Primary Dx) 06/06/2024 12:23 PM EDT - 06/06/2024 11:59 PM EDT Hospital Encounter [facility] CT Imaging [address] [place], [place] [address] [address] Nonrheumatic aortic valve stenosis Discharge Disposition: Home or Self Care () 06/06/2024 12:22 PM EDT Hospital Encounter [facility] CT Imaging [address] [place] [address] Nonrheumatic aortic valve stenosis Discharge Disposition: Home or Self Care () from Last 3 Months Family History Medical [...] oz pur e alcohol) 4x week- vivian [facility] Utilities Answer Date Recorded In the past [...] any time in the past 12 m [facility], were you homeless or [...] Info) Description 09/04/2024 11:15 AM EDT Follow-Up [facility] at [facility] [address] [place] [address] Kimani Spring MD [address] [facility] [place] [address] 09/19/2024 3:30 PM EDT Consult [facility] [[email or web address]] Pulmonary [address] [place] [phone] Paul Mayen MD [address] [place], [place] [id number] Health Maintenance Due Date Last Done Comments [...] this topic Medical Devices Implanted Type Area Centralized Traffic Control Operator Device Identifier Shelf Expiration Date Model / Serial / Lot Stent,Synerg y Mr 2.25 X 16 - [id number] Implanted:Qt y: 1 on 06/27/2024 by Kimani Spring MD at [facility] Drug Eluting Stent N/A: Coronary [employer] [id number] 09/06/2025 [id number] / / [id number] Stent,Synerg y Mr 2.50 X 12 - [id number] Implanted:Qt y: 1 on 06/27/2024 by Kimani Spring MD at [facility] Drug Eluting Stent N/A: Coronary Beulah Arista Power [id number] 08/01/2025 [id number] / / [id number] Monitor,Card iac,Lux,Dxii +[facility] - [id number] - [id number] Implanted:Qt y: 1 on 04/12/2024 by Jez Martin MD at [facility] Implantable Loop Recorder N/A: Chest [employer] 08/02/2025 [id number] / [id number] / Valve,Aortic ,Evolutfm+,2 9mm - [id number] - [id number] Implanted:Qt y: 1 on 08/01/2024 by Kimani Spring MD at [facility] Prosthetic Valve N/A: Aorta [employer] [id number] 03/30/2026 [id number] -29 / [id number] / Procedures Procedure Name Priority Date/Time Associated [...] 2:20 PM EDT 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 Paroxysmal atrial fibrillation ([facility]) ECG 12-LEAD Routine 08/10/2024 3:28 PM EDT [...] AND SCREEN Routine 08/01/2024 1:49 PM EDT [place] AN ELECTIVE ENDOTRACHEAL AIRWAY Routine 08/01/2024 1:29 [...] Sensitivity Troponin I (08/31/2024 3:23 PM EDT) [facility] High Sensitivity Troponin I 25(H) <20 ng/L 08/31/2024 4:10 PM EDT [facility] ([facility]) Blood Venous blood specimen / Unknown Venipuncture / Unknown 08/31/2024 3:23 PM EDT 08/31/2024 3:27 PM EDT us Regino Dunn [facility] BLOOD ORDERABLES Final Resul t [facility] ([facility]) [address] [place], [place] [id number] * (ABNORMAL) CBC auto differential (08/31/2024 3:23 PM EDT) Only the most recent of5 resultswithin the time period is included. [facility] Auto WBC 11.33(H) 4.00 - 10.60 10*3/uL 08/31/2024 3:35 PM EDT [facility] ([facility]) RBC 4.01(L) 4.20 - 5.70 10*6/uL 08/31/2024 3:35 PM EDT [facility] ([facility]) Hemoglobin 11.9(L) 13.0 - 17.0 g/dL 08/31/2024 3:35 PM EDT [facility] ([facility]) Hematocrit 37.9(L) 39.0 - 50.0 % 08/31/2024 3:35 PM EDT [facility] ([facility]) MCV 94.5 82.0 - 98.0 fL 08/31/2024 3:35 PM EDT [facility] ([facility]) MCH 29.7 27.0 - 33.0 pg 08/31/2024 3:35 PM EDT [facility] ([facility]) MCHC 31.4(L) 32.0 - 35.0 g/dL 08/31/2024 3:35 PM EDT [facility] ([facility]) RDW 13.4 11.5 - 15.0 % 08/31/2024 3:35 PM T [facility] ([facility]) Neutrophils % 75.8(H) 40.0 - 72.0 % 08/31/2024 3:35 PM T [facility] ([facility]) Lymphocytes % 14.0(L) 20.0 - 45.0 % 08/31/2024 3:35 PM EDT [facility] ([facility]) Monocytes % 8.3 5.0 - 12.0 % 08/31/2024 3:35 PM EDT [facility] ([facility]) Eosinophils % 1.1 0.0 - 6.0 % 08/31/2024 3:35 PM EDT [facility] ([facility]) Basophils % 0.4 0.0 - 1.0 % 08/31/2024 3:35 PM EDT [facility] ([facility]) Neutrophils Absolute 8.58(H) 1.60 - 7.60 10*3/uL 08/31/2024 3:35 PM EDT [facility] ([facility]) Lymphocytes Absolute 1.59 1.20 - 4.00 10*3/uL 08/31/2024 3:35 PM EDT [facility] ([facility]) Monocytes Absolute 0.94 0.10 - 1.00 10*3/uL 08/31/2024 3:35 PM EDT [facility] ([facility]) Eosinophils Absolute 0.13 0.00 - 0.50 10*3/uL 08/31/2024 3:35 PM EDT [facility] ([facility]) Basophils Absolute 0.05 0.00 - 0.20 10*3/uL 08/31/2024 3:35 PM EDT [facility] ([facility]) Platelets 195 150 - 400 10*3/uL 08/31/2024 3:35 PM EDT [facility] ([facility]) nRBC % 0.0 0 % 08/31/2024 3:35 PM EDT [facility] ([facility]) Immature Granulocytes % 0.4 0.0 - 1.0 % 08/31/2024 3:35 PM EDT [facility] ([facility]) Immature Granulocytes Absolute 0.04 0.00 - 0.20 10*3/uL 08/31/2024 3:35 PM EDT [facility] ([facility]) Blood Venous blood specimen / Unknown Venipuncture / Unknown 08/31/2024 3:23 PM EDT 08/31/2024 3:27 PM EDT Lizz Mayer [facility] BLOOD ORDERABLES Final Re sult [facility] ([facility]) [address] [place] [address] * (ABNORMAL) Basic metabolic panel (08/31/2024 3:23 PM EDT) Only the most recent of9 resultswithin the time period is included. Sodium 138 136 - 145 mmol/L 08/31/2024 4:10 PM EDT [facility] ([facility]) Potassium 4.4 3.5 - 5.1 mmol/L 08/31/2024 4:10 PM EDT [facility] ([facility]) Chloride 108(H) 98 - 107 mmol/L 08/31/2024 4:10 PM EDT [facility] ([facility]) CO2 21 21 - 31 mmol/L 08/31/2024 4:10 PM EDT [facility] ([facility]) BUN 19 7 - 25 mg/dL 08/31/2024 4:10 PM EDT [facility] ([facility]) Creatinine 0.79 0.70 - 1.30 mg/dL 08/31/2024 4:10 PM EDT [facility] ([facility]) Glucose 106(H) 70 - 100 mg/dL 08/31/2024 4:10 PM EDT [facility] ([facility]) Calcium 8.9 8.6 - 10.3 mg/dL 08/31/2024 4:10 PM EDT [facility] ([facility]) Anion Gap 13 7 - 20 mmol/L 08/31/2024 4:10 PM EDT [facility] ([facility]) eGFR 88.7 >60.0 mL/min/1. 73m*2 08/31/2024 4:10 PM EDT [facility] ([facility]) Comment:[facility] s estimated glomerular filtration rate (eGFR) will [...] BUN/Creatinine Ratio 24.1 08/07 4:10 PM EDT [facility] ([facility]) Blood Venous blood specimen / Unknown Venipuncture / Unknown 08/31/2024 3:23 PM EDT 08/31/2024 3:27 PM EDT us Regino Dunn [facility] BLOOD ORDERABLES Final Resul t [facility] ([facility]) [address] [place] [address] * COMPLETE ECHO (TTE) W/ IMAGING AGENT (08/31/2024 2:29 PM EDT) Anatomical Region Laterality Modality Other 08/31/2024 1:34 PM EDT Narrative 08/31/2024 2:48 PM EDT 1 1 MD [facility] and V[facility] Center [facility] Heart Station [address] [place] [address] [phone] (fax) Echocardiogram-[facility] Name: REYNALDO BAKER Study Date: 08/31/2024 01:34 PM B/P: / HR: Date of : 1940 Location: [facility] Height: 66 in. Age: 84 year(s) Patient [...] No pericardial effusion. Procedure Staff Reading Group: [facility] Storm Door Maker: Timur Grijalva RDCS Ordering Physician: LIZZ MAYER Procedure Note Shira Cruz MD - 08/31/2024 1 1 MD [facility] and V[facility] Center [facility] Heart Station [address] [place] [address] [phone] (fax) Echocardiogram-[facility] Name: REYNALDO BAKER Study Date: 08/31/2024 01:34 PM B/P: / HR: Date of : 1940 Location: [facility] Height: 66 in. Age: 84 year(s) Patient [...] No pericardial effusion. Procedure Staff Reading Group: [facility] Storm Door Maker: Timur Grijalva RDCS Ordering Physician: LIZZ MAYER Lizz Mayer [facility] CV ECHO PROCEDURES Final Resu lt * ECG 12 lead (08/31/2024 2:20 PM EDT) Only the most recent of6 resultswithin the time period is included. Ventricular Rate 90 BPM GE MUSE QRS DURATION 138 ms GE MUSE QT Interval 408 ms GE MUSE QTC CALCULATION(BAZE TT) 499 ms GE MUSE R-[place] 57 degrees GE MUSE T Wave [place] 39 degrees GE MUSE 08/31/2024 2:17 PM [...] HORN, L.S. (2) on 08/31/2024 2:27:23 PM Harika Rees [facility] ECG ORDERABLES Final Result GE MUSE * (ABNORMAL) Magnesium (08/06/2024 3:42 AM EDT) Only the most recent of4 resultswithin the time period is included. Magnesium 1.7(L) 1.9 - 2.7 mg/dL 08/06/2024 4:46 AM EDT [facility] ([facility]) Blood Venous blood specimen / Unknown Venipuncture / Unknown 08/06/2024 3:42 AM EDT 08/06/2024 4:22 AM EDT us Isa Camarillo MD LAB BLOOD ORDERABLES Final Resul t [facility]) [address] [place] [address] * Occult blood x 1, stool (08/05/2024 8:23 PM EDT) Fecal Occult Bld Negative Negative, None Detected 08/05/2024 8:54 PM EDT [facility]) Stool Rectal contents / Unknown Non-blood Collection / Unknown 08/05/2024 8:23 PM EDT 08/05/2024 8:27 PM EDT us Isa Camarillo MD LAB BODY FLUIDS AND STOOLS ORDER LEONILA Final Result Performing Organization Address City/[facility]/ZIP Co de Phone Number [facility]) [address] [place] [id number] * Prepare RBC (08/05/2024 8:30 AM EDT) Only the most recent of2 resultswithin the time period is included. PRODUCT CODE [id number] [facility] BL OOD BANK Unit Number [id number] [facility] BLOOD BANK Unit ABO A [facility] BLOOD BANK Unit Rh POS [facility] BLOOD BANK Dispense Status RE [facility] BLOOD [facility] Blood Expiration Date [id number] [facility] BLOOD B[facility] Product Blood Type 6200 [facility] BLOOD BANK Unit Volume 300 ML [facility] BLO OD BANK PRODUCT CODE [id number] [facility] BL OOD BANK Unit Number [id number] [facility] BLOOD BANK Unit ABO A [facility] BLOOD BANK Unit Rh POS [facility] BLOOD BANK Dispense Status RE [facility] BLOOD BANK Blood Expiration Date [id number] [facility] BLOOD BANK Product Blood Type 6200 [facility] BLOOD BANK us Regino Brewer MD BLOOD BANK PRODUCT ORDERABLES Fi nal Result [facility] BLOOD BANK * Lavender Top (08/05/2024 3:53 AM EDT) Only the most recent of2 resultswithin the time period is included. Extra Tube Hold for add-ons. 08/05/2024 6:01 AM EDT [facility] ([facility]) Comment:Auto resulted. Blood Venous blood specimen / Unknown 08/05/2024 3:53 AM EDT 08/05/2024 4:14 AM EDT us Isa Camarillo MD LAB BLOOD ORDERABLES Final Resul t [facility] ([facility]) [address] [place] [address] * XR chest 1 view (08/04/2024 6:35 [...] - 1.0 % 08/03/2024 2:22 PM EDT [facility] ([facility]) Neutrophils Absolute 11.2(H) 1.6 - 7.6 10*3/uL 08/03/2024 2:22 PM EDT [facility] ([facility]) Lymphocytes Absolute 1.06(L) 1.20 - 4.00 10*3/uL 08/03/2024 2:22 PM EDT [facility] ([facility]) Monocytes Absolute 1.68(H) 0.10 - 1.00 10*3/uL 08/03/2024 2:22 PM EDT [facility] ([facility]) Eosinophils Absolute 0.00 0.00 - 0.50 10*3/uL 08/03/2024 2:22 PM EDT [facility] ([facility]) Basophils Absolute 0.01 0.00 - 0.20 10*3/uL 08/03/2024 2:22 PM EDT [facility] ([facility]) Neutrophils % 79.7(H) 40.0 - 72.0 % 08/03/2024 2:22 PM EDT [facility] ([facility]) Lymphocytes % 7.5(L) 20.0 - 45.0 % 08/03/2024 2:22 PM EDT [facility] ([facility]) Monocytes % 11.9 5.0 - 12.0 % 08/03/2024 2:22 PM EDT [facility] ([facility]) Eosinophils % 0.0 0.0 - 6.0 % 08/03/2024 2:22 PM EDT [facility] ([facility]) Basophils % 0.1 0.0 - 1.0 % 08/03/2024 2:22 PM EDT [facility] ([facility]) Immature Granulocytes Absolute 0.11 0.00 - 0.20 10*3/uL 08/03/2024 2:22 PM EDT [facility] ([facility]) Blood Venous blood specimen / Unknown Venipuncture / Unknown 08/03/2024 12:33 PM EDT 08/03/2024 1:04 PM EDT us Radha Campoverde PA-C LAB BLOOD ORDERABLES Areli kevin Result [facility] ([facility]) [address] [place] [address] * Blood culture (08/03/2024 12:33 PM EDT) Only the most recent of2 resultswithin the time period is included. Blood Culture No growth at 5 days TONJA 08/08/2024 2:01 PM EDT [facility] ([facility]) Blood Venous blood specimen / Unknown Venipuncture / Unknown 08/03/2024 12:33 PM EDT 08/03/2024 1:04 PM EDT Lesly Marcial MACHINE MAINTENANCE SERVICER LAB MICROBIOLOGY - GENERAL ORDE JEAN-PAUL Final Result Performing Organization Address City/State/[facility] Co de Phone Number [facility] ([facility]) [address] [place] [address] * (ABNORMAL) Lipid panel (08/03/2024 12:33 PM EDT) Triglycerides 165(H) <150 mg/dL 08/03/2024 1:58 PM EDT [facility] ([facility]) Comment: TRIGLYCERIDE REFERENCE RANGE: 20 YEARS AND OLDER CARDIOVASCULAR RISK LESS THAN 150 mg/dL LOW RISK 150 TO 199 mg/dL BORDERLINE RISK 200 mg/dL AND GREATER HIGH RISK Cholesterol 86(L) 120 - 200 mg/dL 08/03/2024 1:58 PM EDT [facility] ([facility]) LDL Calculated 30 0 - 160 mg/dL 08/03/2024 1:58 PM EDT [facility] ([facility]) HDL 23 23 - 92 mg/dL 08/03/2024 1:58 PM EDT [facility] ([facility]) Non HDL Cholesterol 63 08/03/2024 1:58 PM EDT [facility] ([facility]) Total VLDL-C 33 0 - 40 mg/dL 08/03/2024 1:58 PM EDT [facility] ([facility]) Cholesterol/HDL Ratio 3.7 mg/dL 08/03/2024 1:58 PM EDT [facility] ([facility]) Blood Venous blood specimen / Unknown Venipuncture / Unknown 08/03/2024 12:33 PM EDT 08/03/2024 1:04 PM EDT Stan Simms MD LAB BLOOD ORDERABLES Final Resu lt Performing Organization Address City/[facility]/ZIP Co de Phone Number [facility] ([facility]) [address] [place] [address] * (ABNORMAL) Urinalysis microscopic with reflex culture (08/03/2024 9:43 AM EDT) RBC, Urine >20(A) None Seen, 0-2 /HPF 08/03/2024 10:22 AM EDT [facility] ([facility]) WBC, Urine 11-20(A) None Seen, 0-2 /HPF 08/03/2024 10:22 AM EDT [facility] ([facility]) Squamous Epithelial, Urine Occasional None Seen, Occasional , Few /LPF 08/03/2024 10:22 AM EDT [facility] ([facility]) Mucus, Urine Occasional None Seen, Occasional , Few /LPF 08/03/2024 10:22 AM EDT [facility] ([facility]) Urine Urine specimen obtained by clean catch procedure / Unknown Non-blood Collection / Unknown 08/03/2024 9:43 AM EDT 08/03/2024 9:48 AM EDT us Mark Anthony Frey MD LAB URINE ORDERABLES Final Resul t Performing Organization Address [facility]/ZIP Co de Phone Number [facility] ([facility]) [address] [place], [place] [id number] * (ABNORMAL) Urinalysis with reflex culture (08/03/2024 9:43 AM EDT) Color, Urine Yellow Colorless, Yellow, Light-Yellow 08/03/2024 10:22 AM EDT [facility] ([facility]) Clarity, Urine Clear Clear 08/03/2024 10:22 AM EDT [facility] ([facility]) pH, Urine 5.5 5.0 - 8.0 pH 08/03/2024 10:22 AM EDT [facility] ([facility]) Leukocytes, Urine Moderate(A) Negative 08/03/2024 10:22 AM EDT [facility] ([facility]) Nitrite, Urine Negative Negative 08/03/2024 10:22 AM EDT [facility] ([facility]) Protein, Urine Negative Negative mg/dL 08/03/2024 10:22 AM EDT [facility] ([facility]) Glucose, Urine Normal Normal mg/dL 08/03/2024 10:22 AM EDT [facility] ([facility]) Bilirubin, Urine Negative Negative 08/03/2024 10:22 AM EDT [facility] ([facility]) Specific [place], Urine 1.030 1.010 - 1.030 08/03/2024 10:22 AM EDT [facility] ([facility]) Ketones, Urine Negative Negative mg/dL 08/03/2024 10:22 AM EDT [facility] ([facility]) Blood, Urine Large(A) Negative 08/03/2024 10:22 AM EDT [facility] ([facility]) Urobilinogen, Urine Normal Normal mg/dL 08/03/2024 10:22 AM EDT [facility] ([facility]) Urine Urine specimen obtained by clean catch procedure / Unknown Non-blood Collection / Unknown 08/03/2024 9:43 AM EDT 08/03/2024 9:48 AM EDT Mark Anthony Frey MD LAB URINE ORDERABLES Final Resul t [facility]) [address] [place], [place] [id number] * Urine culture, routine (08/03/2024 9:43 AM EDT) Urine Culture No growth at 48 hours TONJA 08/05/2024 7:43 AM EDT [facility] ([facility]) Urine Urine specimen obtained by clean catch procedure / Unknown Non-blood Collection / Unknown 08/03/2024 9:43 AM EDT 08/03/2024 9:48 AM EDT Mark Anthony Frey MD LAB MICROBIOLOGY - GENERAL ORDER LEONILA Final Result [facility]) [address] [place], [place] [id number] * FL modified barium swallow (08/02/2024 10:46 [...] of multiple consistencies were administered. Fluoroscopic time [id number] seconds. 11.4 mgy. Deep laryngeal penetration with [...] materials of multiple consistencieswere administered. Fluoroscopic time [id number] seconds. 11.4 mgy. Deep laryngeal penetration with [...] pathology report Electronically signed: Alexei Velasquez MD. us Mark Anthony Frey MD IMG FLUOROSCOPY PROCEDURES Final Result * LIMITED ECHO (TTE) W/ LIMITED DOPPLER, COLOR FLOW AND IMAGING AGENT (08/02/2024 8:58 AM EDT) Anatomical Region Laterality Modality Other 08/02/2024 7:47 AM EDT Narrative 08/02/2024 10:27 AM EDT 1 1 [facility] Heart Station [address] [place] [address] [phone] (fax) Echocardiogram-[facility] Name: REYNALDO BAKER Study Date: 08/02/2024 07:47 AM B/P: 104 mmHg/46 mmHg HR: 64 bpm Date of : 1940 Location: [facility] Height: 66 in. Age: 84 year(s) Patient [...] No pericardial effusion. Procedure Staff Reading Group: [facility] Referring Physician: SHAILESH VINSON Storm Door Maker: Darleen Carmona RDCS, RVT, RN, BSN Ordering Physician: LIZZ MAYER Procedure Note Shira Cruz MD - 08/02/2024 1 1 [facility] Heart Station [address] [place] [address] [phone] (fax) Echocardiogram-[facility] Name: REYNALDO BAKER Study Date: 08/02/2024 07:47 AM B/P: 104 mmHg/46 mmHg HR: 64 bpm Date of : 1940 Location: [facility] Height: 66 in. Age: 84 year(s) Patient [...] No pericardial effusion. Procedure Staff Reading Group: [facility] Referring Physician: SHAILESH VINSON Storm Door Maker: Darleen Carmona, PAYAM, RVT, RN, BSN Ordering Physician: LIZZ MAYER us Lizz Mayer MACHINE MAINTENANCE SERVICER CV ECHO PROCEDURES Final Resu lt * (ABNORMAL) CBC (08/02/2024 4:29 AM EDT) Only the most recent of5 resultswithin the time period is included. Auto WBC 22.16(H) 4.00 - 10.60 10*3/uL 08/02/2024 5:48 AM EDT [facility] ([facility]) RBC 2.92(L) 4.20 - 5.70 10*6/uL 08/02/2024 5:48 AM EDT [facility] ([facility]) Hemoglobin 8.7(L) 13.0 - 17.0 g/dL 08/02/2024 5:48 AM EDT [facility] ([facility]) Hematocrit 27.1(L) 39.0 - 50.0 % 08/02/2024 5:48 AM EDT [facility] ([facility]) MCV 92.8 82.0 - 98.0 fL 08/02/2024 5:48 AM EDT [facility] ([facility]) MCH 29.8 27.0 - 33.0 pg 08/02/2024 5:48 AM EDT [facility] ([facility]) MCHC 32.1 32.0 - 35.0 g/dL 08/02/2024 5:48 AM EDT [facility] ([facility]) RDW 13.1 11.5 - 15.0 % 08/02/2024 5:48 AM EDT [facility] ([facility]) Platelets 195 150 - 400 10*3/uL 08/02/2024 5:48 AM EDT [facility] ([facility]) Blood Venous blood specimen / Unknown Arterial Line / Unknown 08/02/2024 4:29 AM EDT 08/02/2024 4:40 AM EDT us Lizz Mayer MACHINE MAINTENANCE SERVICER LAB BLOOD ORDERABLES Final Re sult [facility] ([facility]) [address] [place] [address] * (ABNORMAL) POCT glucose meter (08/01/2024 5:02 PM EDT) Only the most recent of2 resultswithin the time period is included. Glucose POC 174(H) 70 - 105 mg/dL 08/01/2024 5:13 PM EDT [facility] ([facility]) Comment: Blood Capillary blood specimen / Unknown 08/01/2024 5:02 PM EDT 08/01/2024 5:13 PM EDT Narrative [facility] ([facility]) - 08/01/2024 5:13 PM EDT Waived Testing in the ED is performed under the ED CLIA certificate #[id number]. us Generic Provider Poct LAB BLOOD ORDERABLES Final Result Performing Organization Address [facility]/ZIP Co de Phone Number [facility]) [address] [place] [address] * (ABNORMAL) APTT (08/01/2024 5:00 PM EDT) aPTT 40.3(H) 25.0 - 35.0 Seconds 08/01/2024 5:36 PM EDT [facility] ([facility]) Comment:Clinical significanc e of the APTT is questionable in the presence of heparin. Blood Venous blood specimen / Unknown Arterial Line / Unknown 08/01/2024 5:00 PM EDT 08/01/2024 5:03 PM EDT us Hal Kirkpatirck MACHINE MAINTENANCE SERVICER LAB BLOOD ORDERABLES Fi nal Result [facility]) [address] [place] [address] * (ABNORMAL) Protime-INR (08/01/2024 5:00 PM EDT) Protime 16.6(H) 12.3 - 14.8 Seconds 08/01/2024 5:36 PM EDT [facility] ([facility]) INR 1.35(H) 0.90 - 1.10 08/01/2024 5:36 PM EDT [facility] ([facility]) Comment: ACC RECOMMENDED INR FOR WARFARIN THERAPY [...] 08/01/2024 5:03 PM EDT us Hal Kirkpatrick [facility] LAB BLOOD ORDERABLES Fi nal Result [facility] Mat[facility]) [address] [place], [place] [id number] * Phosphorus (08/01/2024 5:00 PM EDT) Phosphorus 3.5 2.5 - 5.0 mg/dL 08/01/2024 5:35 PM EDT [facility] ([facility]) Blood Venous blood specimen / Unknown Arterial Line / Unknown 08/01/2024 5:00 PM EDT 08/01/2024 5:06 PM EDT Hal Alexandercharles MACHINE MAINTENANCE SERVICER LAB BLOOD ORDERABLES Fi nal Result [facility] ([facility]) [address] [place], [place] [id number] * TAVR (08/01/2024 4:03 PM EDT) Anatomical [...] vein under ultrasound guidance. OPERATORS: Interventional Cardiology Senior Auditor: Kimani Spring MD Cardiac Surgery Senior Auditor: Mark Anthony Frey MD Web Search Evaluator Interventional Cardiology Senior Auditor: Abhay Knutson Interventional Fellow Fellow: Dr. Sander Ware METHODS: Procedure was explained to the patient with risks and benefits. he signed informed consent. he was brought to vp lab in a fasting state. The procedure was performed in the cardiac vp lab under general anesthesia. Both groin areas, and the right neck area were prepped and draped in usual fashion. Micropuncture technique and ultrasound guidance were used for access in the right common femoral artery and inner cannula angiography was performed followed by upsizing to a 6-Turkish x 11 cm sheath. The same was done for the access in the right common femoral vein. A 5-Turkish balloon-tipped pacemaker wire was advanced through the femoral vein sheath to the right ventricular apex and adequate capture was confirmed. Through the right common femoral sheath, an angled 6-Turkish pigtail catheter was then advanced to the [...] in the common carotid artery and a 10-Turkish x 11 cm sheath was placed. A 6-Turkish AL1 diagnostic catheter was advanced via the carotid sheath, and using a straight stiff Glidewire, the aortic valve was crossed and the catheter was advanced in the left ventricular cavity, and using an exchange length J-wire, a 6-Turkish angled pigtail catheter was advanced to make [...] the valve over the wire across the wainwright aortic valve, and under pacing at 120 [...] and removed outside of the body. The 14-Turkish access sheath was placed across the carotid access and a 6-Turkish angled pigtail catheter was advanced across the [...] of5 resultswithin the time period is included. 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 beater machine operator [id number] Kimani Spring MD POINT OF CARE TEST ENTER/KARTIK T ORDERABLES Final Result * LIMITED ECHOCARDIOGRAM (TTE) W/ LTD DOPPLER AND COLOR FLOW (08/01/2024 3:33 PM EDT) Anatomical Region Laterality Modality Other 08/01/2024 10:4 4 AM EDT Narrative 08/01/2024 5:24 PM EDT 1 1 MD [facility] V[facility] Center [facility] Heart Station [address] [place] [address] [phone] (fax) Echocardiogram-[facility] Name: REYNALDO BAKER Study Date: 08/01/2024 10:44 AM B/P: 183 mmHg/71 mmHg HR: Date of : 1940 Location: [facility] Height: 66 in. Age: 84 year(s) Patient [...] No pericardial effusion. Procedure Staff Reading Group: [facility] Storm Door Maker: Divina Priest RDCS Ordering Physician: LIZZ MAYER Procedure Note Shira Cruz MD - 08/01/2024 1 1 MD [facility] Heart Station [address] [facility] [place] [address] [phone] (fax) Echocardiogram-[facility] Name: REYNALDO BAEKR Study Date: 08/01/2024 10:44 AM B/P: 183 mmHg/71 mmHg HR: Date of : 1940 Location: [facility] Height: 66 in. Age: 84 year(s) Patient [...] No pericardial effusion. Procedure Staff Reading Group: [facility] Storm Door Maker: Divina Priest RDCS Ordering Physician: LIZZ MAYER us Lizz Mayer MACHINE MAINTENANCE SERVICER CV ECHO PROCEDURES Final Resu lt * (ABNORMAL) Arterial blood gas with ionized calcium (08/01/2024 1:52 PM EDT) pH, Arterial 7.46(H) 7.35 - 7.45 pH 08/01/2024 1:55 PM EDT [facility] RESPIRATORY THERAPY pCO2, Arterial 34(L) 35 - 48 mmHg 08/01/2024 1:55 PM EDT [facility] RESPIRATORY [facility] pO2, Arterial 300(H) 83 - 100 mmHg 08/01/2024 1:55 PM EDT [facility] RESPIRATORY THERAPY HCO3, Arterial 24.2 21.0 - 28.0 mEq/L 08/01/2024 1:55 PM EDT [facility] RESPIRATORY [facility] Calcium, Ion 1.19 1.15 - 1.33 mmol/L 08/01/2024 1:55 PM EDT [facility] RESPIRATORY [facility] O2 Sat, Arterial 98.9(H) 94.0 - 98.0 % 08/01/2024 1:55 PM EDT [facility] RESPIRATORY [facility] Base Excess, Arterial 0.8 -2.0 - 3.0 mmol/L 08/01/2024 1:55 PM EDT [facility] RESPIRATORY THERAPY Source Of Oxygen Vent 08/01/2024 1:55 PM EDT [facility] RESPIRATORY THERAPY Blood Arterial blood specimen / Unknown Arterial Puncture / Unknown 08/01/2024 1:52 PM EDT 08/01/2024 1:52 PM EDT Narrative [facility] RESPIRATORY THERAPY - 08/01/2024 1:55 PM EDT 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 and 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 laborer us Bebeto Rangel MD LAB BLOOD ORDERABLES Final R esult [facility] RESPIRATORY THERAPY [address] [address], [place] * Type and screen (08/01/2024 1:49 PM EDT) ABO Grouping A 08/01/2024 2:54 PM EDT [facility] BLOOD BANK Rh Type POS 08/01/2024 2:54 PM EDT [facility] BLOOD BANK Ab Scrn NEG 08/01/2024 2:54 PM EDT [facility] BLOOD BANK Blood Venous blood specimen / Unknown Venipuncture / Unknown 08/01/2024 1:49 PM EDT 08/01/2024 1:49 PM EDT Bebeto Rangel MD LAB BLOOD BANK TEST ORDERABL ES Final Result [facility] BLOOD BANK * [place] AN ELECTIVE ENDOTRACHEAL AIRWAY (08/01/2024 1:29 PM EDT) Bebeto De La Paz MD - 08/01/2024 1:29 PM EDT Regino Brewer MD 08/01/2024 1:43 PM Airway Date/Time: 08/01/2024 1:29 PM Urgency: elective Airway not difficult General Information and Staff Patient location during procedure: [place] Anesthesiologist: Bebeto Rangel MD Resident/OBGYN NURSE/CAA: Regino Brewer MD Performed: resident/OBGYN NURSE/CAA Indications and Patient Condition Indications for airway [...] or Ultrasound probe cover. VSS. Staffing Performed: resident/OBGYN NURSE/CAA Anesthesiologist: Bebeto Rangel MD Resident/OBGYN NURSE: Regino Brewer MD Performed by: Regino Brewer MD Authorized by: Bebeto Rangel MD Bebeto Rangel MD ANESTHESIA ORDERABLES Final Result * CARDIAC DEVICE CHECK - REMOTE - LOOP RECORDER (ILR) (07/28/2024 9:56 AM EDT) Only the most recent of2 resultswithin the time period is included. Jez Martin MD CV IMPLANTABLE CARDIAC DEVICE [place] OCEDURES Final Result [facility] * Cardiac device check - Remote loop recorder (ILR) (07/18/2024 12:00 AM EDT) Anatomical Region Laterality Modality Other 07/18/2024 Jez Martin MD CV IMPLANTABLE CARDIAC DEVICE [place] OCEDURES Final Result * (ABNORMAL) Hemoglobin and hematocrit, blood (06/29/2024 11:10 PM EDT) Only the most recent of6 resultswithin the time period is included. Hemoglobin 8.9(L) 13.0 - 17.0 g/dL 06/29/2024 11:57 PM EDT [facility] ([facility]) Hematocrit 27.7(L) 39.0 - 50.0 % 06/29/2024 11:57 PM EDT [facility] ([facility]) Blood Venous blood specimen / Unknown Arterial Line / Unknown 06/29/2024 11:10 PM EDT 06/29/2024 11:32 PM EDT us Mert Oglesby MD LAB BLOOD ORDERABLES Final Res ult [facility] ([facility]) [address] [place] [address] * Bronchoscopy (06/29/2024 4:09 PM EDT) Anatomical [...] - 212 ug/dL 06/29/2024 11:53 AM EDT [facility] ([facility]) TIBC 227(L) 250 - 450 ug/dL 06/29/2024 11:53 AM EDT [facility] ([facility]) Iron Saturation 18(L) 20 - 50 % 11:53 AM EDT [facility] ([facility]) UIBC 187.0 155.0 - 355.0 ug/dL 06/29/2024 11:53 AM EDT [facility] ([facility]) Blood Venous blood specimen / Unknown Arterial Line / Unknown 06/29/2024 11:06 AM EDT 06/29/2024 11:24 AM EDT Mert Oglesby MD LAB BLOOD ORDERABLES Final Res ult [facility] ([facility]) [address] [place] [address] * Transferrin (06/29/2024 11:06 AM EDT) Transferrin 195 168 - 348 mg/dL 06/29/2024 11:53 AM EDT [facility] ([facility]) Blood Venous blood specimen / Unknown Arterial Line / Unknown 06/29/2024 11:06 AM EDT 06/29/2024 11:24 AM EDT Mert Oglesby MD LAB BLOOD ORDERABLES Final Res ult [facility]) [address] [place] [address] * Folate (06/29/2024 11:06 AM EDT) Folate 7.77 6.6 - 1,000 ng/mL 06/29/2024 12:18 PM EDT [facility] ([facility]) Blood Venous blood specimen / Unknown Arterial Line / Unknown 06/29/2024 11:06 AM EDT 06/29/2024 11:24 AM EDT Mert Oglesby MD LAB BLOOD ORDERABLES Final Res ult Performing Organization Address City/[facility]/ZIP Co de Phone Number [facility]) [address] [place] [address] * Ferritin (06/29/2024 11:06 AM EDT) Ferritin 168.0 24.0 - 336.0 ng/mL 06/29/2024 12:18 PM EDT [facility]) Blood Venous blood specimen / Unknown Arterial Line / Unknown 06/29/2024 11:06 AM EDT 06/29/2024 11:24 AM EDT Mert Oglesby MD LAB BLOOD ORDERABLES Final Res ult [facility]) [address] [place] [address] * Vitamin B12 (06/29/2024 11:06 AM EDT) Vitamin B-12 373 180 - 914 pg/mL 06/29/2024 12:18 PM EDT [facility]) Comment: REFERENCE RANGES: 180-914 pg/mL Normal 145-179 pg/mL Indeterminate <145 pg/mL Deficient Blood Venous blood specimen / Unknown Arterial Line / Unknown 06/29/2024 11:06 AM EDT 06/29/2024 11:24 AM EDT us Mert Oglesby MD LAB BLOOD ORDERABLES Final Res ult [facility] ([facility]) [address] [place] [address] * PERC CORONARY INTERVENTION (06/27/2024 4:24 PM [...] informed consent. he was brought to the vp lab in a fasting state. The left wrist area was prepped and draped in usual fashion. Micropuncture technique was used for access in the left radial artery. A 5-Turkish x 11 cm sheath was placed. Verapamil was given through the sheath, and heparin was administered intravenously. Heparin was administered intravenously and therapeutic ACT was confirmed during the rest of the procedure. A 5-Turkish XB 3.5 LBT guiding catheter was advanced [...] to the distal 2nd OM branch. Baseline ANGLEINA flow was 3. 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], Nonrheumatic aortic valve stenosis [I35.0] Lizz Mayer CNP CV CARDIAC CATH PROCEDURES Fi nal Result * ECHO ABORTED PROCEDURE (06/27/2024 10:30 AM EDT) Anatomical Region Laterality Modality Other 06/27/2024 10:0 6 AM EDT Narrative 06/27/2024 12:46 PM EDT 1 MD Heart and Vascular Center [facility] Heart Station [address] [place] [address] [phone] (fax) Transesophageal Echocardiogram-[facility] Name: REYNALDO BAKER Study Date: 06/27/2024 10:06 AM B/P: 170 mmHg/89 mmHg HR: 64 bpm Date of : 1940 Location: [facility] Height: 66 in. Age: 84 year(s) Patient Room: [facility] VASCULAR POOL Weight: 136 lb. Gender: [...] (Opiates) 50 micrograms Procedure Staff Reading Group: MD Cardiovascular Group Referring Physician: SHAILESH VINSON Storm Door Maker: JODI Ponce Ordering Physician: LIZZ MAYER Procedure Note Shira Cruz MD - 06/27/2024 1 MD [facility] Heart Station [address] [place] [address] [phone] (fax) Transesophageal Echocardiogram-[facility] Name: REYNALDO BAKER Study Date: 06/27/2024 10:06 AM B/P: 170 mmHg/89 mmHg HR: 64 bpm Date of : 1940 Location: [facility] Height: 66 in. Age: 84 year(s) Patient Room: [facility] VASCULAR POOL Weight: 136 lb. Gender: [...] (Opiates) 50 micrograms Procedure Staff Reading Group: MD Cardiovascular Group Referring Physician: SHAILESH VINSON Storm Door Maker: JODI Ponce Ordering Physician: LIZZ MAYER us Lizz Mayer MACHINE MAINTENANCE SERVICER CV ECHO PROCEDURES Final Resu lt * [...] root are obtained in anterior projection, no SUPERVISOR DYER-CAU views. The annulus measures 29.9 x 23.3 [...] root are obtained in anterior projection, no SUPERVISOR DYER-CAU views. The annulus measures 29.9 x 23.3 [...] signed: Mendoza Rodriguez MD. Lizz Mayer CNP IM CT PROCEDURES Final Resul t * [...] signed: Mendoza Rodriguez MD. Lizz Mayer CNP IM CT PROCEDURES Final Resul t from Last [...] 7:55 AM 10/13/2023 2:54 PM Care Teams Center Administrator Relationship Specialty Start Date End Date Shailesh Vinson DO [address] [facility] [place] [address] PCP - General Family Medicine 08/04/23 Dr. Sheri Christiansen [address] [address] Airline Lounge Receptionist Cardiology 08/18/23
--- OUTSIDE RECORDS SUMMARY | 2024-09-01 11:56 | XMS_ITS | Clinical Summary ---
Author Organization [facility] Address [address] [place] [address] Phone Care Team Providers Care Professor Of Business Administration Name Role Phone Shailesh Vinson DO Primary Care Provider [phone] Social History Tobacco Use Types Packs/Day Years Used Date Smoking Tobacco: Never Assessed Sex and Gender Information Value Date Recorded Sex Assigned at Not on file Legal Sex Male 9:39 PM EST Gender Identity Not on file Sexual Orientation Not on file Plan of Treatment Health Maintenance Due Date Last Done Comments Lipid Panel 1940 Medicare Annual Wellness Vis it (AWV) 1940 Skin Cancer Screening 1940 Pneumococcal Vaccine (1 of 2 - [...] age to complete this topic HPV Vaccines (No Doses Required) Completed Hepatitis A Vaccines Aged Out No long [...] MEDICARE PART A AND B Care Teams Professor Of Business Administration Relationship Specialty Start Date End Date Shailesh Vinson DO PCP - General 03/08/99
--- OUTSIDE RECORDS SUMMARY | 2024-09-01 11:56 | XMS_ITS | Clinical Summary ---
Author Organization [facility] Address [address] [place], [place] [address] Care Team Providers Care Information Technology Security Manager Name Role Phone Shailesh Vinson Primary Care Provider [phone] Allergies Active Allergy Reactions Criticality Noted Date [...] N ot on file 02/14/2020 Data from: https://www.neighborhoodatlas.medicine.[email or web address]/. Last address used for calculation Not on [...] Influenza Vaccine (Season Ended) 2024 Insurance MEDICARE [place] [id number] [facility] Care Teams Information Technology Security Manager Relationship Specialty Start Date End Date Shailesh Vinson DO PCP - General Internal Medicine 05/09/15
--- OUTSIDE RECORDS SUMMARY | 2024-09-01 11:56 | XMS_ITS | Encounter Summary ---
Author Organization [facility] Address [address] [place] [address] Phone Care Team Providers Care Regional Director Of Admissions Name Role Phone Shailesh Vinson DO Primary Care Provider [phone] Encounter Details Date Type Department Care Team (Late st Contact Info) Description 08/31/2023 Scanned Document [facility] [address] [place] [address] Scanning, Generic Provider Social History [...] on filedocumented in this encounter Care Teams Regional Director Of Admissions Relationship Specialty Start Date End Date Shailesh Vinson DO PCP - General 03/08/99 documented as of this encounter
--- NOTE | 2024-09-01 11:59 | ED_ITS ---
HPI HPI - General Adult General Chief complaint: Chest Pain Stated complaint: FAST HEART RATE Time Seen by Provider: 09/01/24 11:54 Source: patient and family Mode of arrival: Wheelchair Limitations: physical limitation History of Present Illness HPI narrative: 84-year-old male presents to the emergency department for fast heartbeat. It was noticed when he was getting physical therapy today. The patient tells me it happened a few times in the past few days. His states that he had an outpatient echo at [facility] yesterday and his heart rate was not fast then. He is a bit short of breath and states his chest hurts. It is not clear when this tachycardia started this time. Related Data Home Medications ?Medication ?Instructions ?Recorded ?Confirmed pravastatin 40 mg tablet 40 mg PO QPM 03/12/23 losartan 50 mg tablet 25 mg PO QPM 10/14/23 clopidogrel 75 mg tablet 75 mg PO DAILY 09/01/2408/07 ferrous sulfate 325 mg (65 mg 325 mg PO DAILY 09/01/24 09/01/24 iron) tablet folic acid 1 mg tablet 1 mg PO DAILY 09/01/2409/01 Previous Rx's ?Medication ?Instructions ?Recorded apixaban 2.5 mg tablet (Eliquis) 2.5 mg PO BID #60 tab s 10/17/23 Allergies Allergy/AdvReac Type Severity Reaction Status Date / Time SHALINI Inhibitors Allergy Unknown Unknown Verified 09/22/23 21:07 Iodinated Contrast Media Allergy Unknown Hives Verified 09/22/23 21:07 iodine Allergy Unknown Hives Verified 09/22/23 21:07 tetanus toxoid, adsorbed Allergy Unknown Unknown Verified 09/22/23 21:07 Opioid HPI Opioid Management Most Recent Opioid Data: Last Pain Scale 7 Today, 12:36 Last ORT Total Score 0 10/14/23, 14:31 Last ORT Risk Category Low Risk 10/14/23, 14:31 Review of Systems ROS Narrative A ten point review of systems is negative except as noted above. [facility] Medical History (Updated 09/01/24 @ 13:22 by Walt Chadwick MD) Hyponatremia ?E87.1 - Hypo-osmolality and hyponatremia (ICD-10) Acute on chronic diastolic (congestive) heart failure ?I50.33 - Acute on chronic diastolic (congestive) heart failure (ICD-10) NSTEMI (non-ST elevated myocardial infarction) ?I21.4 - Non-ST elevation (NSTEMI) myocardial infarction (ICD-10) Atrial fibrillation with RVR ?I48.91 - Unspecified atrial fibrillation (ICD-10) Clavicular fracture ?S42.009A - Fracture of unspecified part of unspecified clavicle, initial encounter for closed fracture (ICD-10) Presence of internal carotid stent (~07/2022) ?Z95.828 - Presence of other vascular implants and grafts (ICD-10) Aortic valve stenosis ?I35.0 - Nonrheumatic aortic (valve) stenosis (ICD-10) Heart murmur ?R01.1 - Cardiac murmur, unspecified (ICD-10) Carotid stenosis ?I65.29 - Occlusion and stenosis of unspecified carotid artery (ICD-10) Anemia ?D64.9 - Anemia, unspecified (ICD-10) Femur fracture (~10/2021) ?S72.90XA - Unspecified fracture of unspecified femur, initial encounter for closed fracture (ICD-10) AAA (abdominal aortic aneurysm) ?I71.40 - Abdominal aortic aneurysm, without rupture, unspecified (ICD-10) Heartburn ?R12 - Heartburn (ICD-10) Delayed recovery from anesthesia Urethral stricture ?N35.919 - Unspecified urethral stricture, male, unspecified site (ICD-10) Post-void dribbling ?N39.43 - Post-void dribbling (ICD-10) Penile rash ?R21 - Rash and other nonspecific skin eruption (ICD-10) Paget's disease Nocturia ?R35.1 - Nocturia (ICD-10) Incontinence ?R32 - Unspecified urinary incontinence (ICD-10) Microhematuria ?R31.29 - Other microscopic hematuria (ICD-10) Impotence ?N52.9 - Male erectile dysfunction, unspecified (ICD-10) Hypertension ?I10 - Essential (primary) hypertension (ICD-10) Hyperlipidemia ?E78.5 - Hyperlipidemia, unspecified (ICD-10) Kidney stones ?N20.0 - Calculus of kidney (ICD-10) Gross hematuria ?R31.0 - Gross hematuria (ICD-10) Erectile dysfunction ?N52.9 - Male erectile dysfunction, unspecified (ICD-10) Dysuria ?R30.0 - Dysuria (ICD-10) BPH (benign prostatic hyperplasia) ?N40.0 - Benign prostatic hyperplasia without lower urinary tract symptoms (ICD-10) Asymptomatic microscopic hematuria ?R31.21 - Asymptomatic microscopic hematuria (ICD-10) ASHD (arteriosclerotic heart disease) ?I25.10 - Atherosclerotic heart disease of [place] coronary artery without angina pectoris (ICD-10) Surgical History H/O lithotripsy ?Z98.890 - Other specified postprocedural states (ICD-10) History of open reduction and internal fixation (ORIF) procedure (~10/2021) ?Z98.890 - Other specified postprocedural states (ICD-10) Hx of esophagogastroduodenoscopy ?Z98.890 - Other specified postprocedural states (ICD-10) H/O cardiac catheterization ?Z98.890 - Other specified postprocedural states (ICD-10) H/O arthroscopy of knee ?Z98.890 - Other specified postprocedural states (ICD-10) H/O colonoscopy ?Z98.890 - Other specified postprocedural states (ICD-10) H/O cystoscopy ?Z98.890 - Other specified postprocedural states (ICD-10) H/O transurethral resection of prostate ?Z98.890 - Other specified postprocedural states (ICD-10) ?Z90.79 - Acquired absence of other genital organ(s) (ICD-10) S/P AAA repair (~02/2022) ?Z98.890 - Other specified postprocedural states (ICD-10) ?Z86.79 - Personal history of other diseases of the circulatory system (ICD- 10) S/P cystourethroscopy with dilation of urethral stricture ?Z98.890 - Other specified postprocedural states (ICD-10) Social History Within the past year, how often did you have a drink containing alcohol: 2-3 times a week Smoking status: Former smoker Non-prescribed substance use: denies use Previous occupational history: retired Highest level of school completed/degree received: high school graduate Are you now , , , , never or living with a partner: In a typical week, how many times do you talk on the telephone with family, friends, or neighbors: twice per week How often do you get together with friends or relatives: twice per week Little interest or pleasure in doing things: not at all Feeling down, depressed, or hopeless: not at all Feel stressed/tense/nervous/anxious/difficulty sleeping: not at all Do you think of yourself as: straight/heterosexual Gender Identity: male Exam Narrative Exam Narrative: Nurses note and vital signs reviewed and patient is not hypoxic. General: The patient appears in no apparent distress. Patient is resting comfortably on cart. Skin: Warm, dry, no pallor noted. There is no rash noted. Head: Normocephalic, atraumatic Eye: Normal conjunctiva, no drainage Ears, Nose, Mouth, and Throat: oral mucosa is moist. Nares patent. Cardiovascular: Irregular irregular and tachycardic Respiratory: Patient is in no distress, no accessory muscle use, lungs are clear to auscultation, no wheezing, rales or rhonchi Back: non-tender GI: Soft and nontender Musculoskeletal: The patient has no evidence of calf tenderness, no pitting edema, symmetrical pulses noted bilaterally Neurological: Awake and alert Psychiatric: Cooperative Constitutional Vital Signs, click to edit/add: Last Vital Signs Temp 98.2 F 09/01/24 11:50 Pulse 84 09/01/24 12:30 Resp 18 09/01/24 12:30 BP 118/71 09/01/24 12:30 Pulse Ox 97 09/01/24 12:38 O2 Del Method Room Air 09/01/24 12:38 Course Vital Signs Vital signs: Vital Signs Temperature 98.2 F 09/01/24 11:50 Pulse Rate 147 H 09/01/24 11:50 Respiratory Rate 18 09/01/24 11:50 Blood Pressure 163/98 H 09/01/24 11:50 Pulse Oximetry 100 09/01/24 11:50 Oxygen Delivery Method Room Air 09/01/24 11:50 Temperature 98.2 F 09/01/24 11:50 Pulse Rate 84 09/01/24 12:30 Respiratory Rate 18 09/01/24 12:30 Blood Pressure 118/71 09/01/24 12:30 Pulse Oximetry 97 09/01/24 12:38 Oxygen Delivery Method Room Air 09/01/24 12:38 Medical Decision Making MDM Narrative Medical decision making narrative: The patient presented with atrial fibrillation with a heart rate in the 130s and 140s. He was given IV Cardizem bolus which slowed his heart rate down and then he was placed on a Cardizem drip. The patient then converted back into sinus rhythm and was having some PVCs and PACs. He is asymptomatic now and his workup is negative and he is able to be released. Treatment diagnosis and follow-up were discussed with the patient and his Differential Diagnosis Differential Diagnosis: Atrial fibrillation Lab Data Lab results reviewed: Yes I reviewed the patient's lab results Labs: Lab Results 09/01/24 Range/Units 11:58 WBC 9.6 (4.0-11.0) 10^3/uL RBC 3.93 L (4.70-6.10) 10^6/uL Hgb 11.8 L (14.0-18.0) g/dL Hct 36.8 L (42.0-54.0) % MCV 93.6 (80.0-94.0) fL MCH 30.0 (25.9-34.0) pg MCHC 32.1 (29.9-35.2) g/dL RDW 13.5 (11.0-15.0) % Plt Count 179 (150-450) 10^3/uL MPV 10.7 (9.5-13.5) fL Neut % (Auto) 71.5 (43.0-75.0) % Lymph % (Auto) 17.9 L (20.5-60.0) % [place] % (Auto) 9.4 (1.7-12.0) % Eos % (Auto) 0.5 L (0.9-7.0) % Baso % (Auto) 0.4 (0.2-2.0) % Neut # (Auto) 6.9 H (1.4-6.5) 10^3/uL Lymph # (Auto) 1.7 (1.2-3.8) 10^3/uL [place] # (Auto) 0.9 H (0.3-0.8) 10^3/uL Eos # (Auto) 0.1 (0.0-0.7) 10^3/uL Baso # (Auto) 0.0 (0.0-0.1) 10^3/uL Abs Immat Gran (auto) 0.03 (0.00-0.03) 10^3/uL Imm/Tot Granulo (auto) 0.3 (0.0-0.5) % Sodium 145 (136-145) mmol/L Potassium 4.0 (3.5-5.1) mmol/L Chloride 108 H (98-107) mmol/L Carbon Dioxide 25.1 (21.0-32.0) mmol/L Anion Gap 15.9 BUN 20.0 H (7.0-18.0) mg/dL Creatinine 0.86 (0.70-1.30) mg/dL Est GFR ( Amer) >60 (>=60 mL/min/1.73m^2) Est GFR (Non-Af Amer) >60 (>=60 mL/min/1.73m^2) BUN/Creatinine Ratio 23.3 Glucose 127 H (74-106) mg/dL Calcium 8.8 (8.5-10.1) mg/dL Troponin I High Sens 31.5 (4.0-76.1) pg/mL Imaging Data Chest x-ray: Radiologist's impression: ITS Impressions Chest X-Ray 09/01/24 11:59 IMPRESSION: No acute cardiopulmonary pathology. Impression dictated by: Cruz Jain M.D. 09/01/2024 12:48 PM Dictation Location: [place] [address] Electronically authenticated by: [id number] Y Date: 09/01/2024 12:48 ECG Data Attestation: I personally reviewed and interpreted this ECG as follows: (First EKG on my interpretation shows atrial fibrillation with RVR. Repeat EKG at 12:45 PM shows sinus rhythm) Discharge Plan Discharge Chief Complaint: Chest Pain Clinical Impression: Atrial fibrillation Patient Disposition: Home, Self-Care Time of Disposition Decision: 13:22 Condition: Good Mode of Transportation: Private Vehicle Prescriptions / Home Meds: No Action pravastatin 40 mg tablet 40 mg PO QPM clopidogrel 75 mg tablet 75 mg PO DAILY ferrous sulfate 325 mg (65 mg iron) tablet 325 mg PO DAILY folic acid 1 mg tablet 1 mg PO DAILY losartan 50 mg tablet 25 mg PO QPM Eliquis 2.5 mg tablet 2.5 mg PO BID Qty: 60 11RF Print Language: Nepali Instructions: A-fib (Atrial Fibrillation) (ED) Referrals: Shailesh Vinson DO [Primary Care Provider, Internal Medicine] - 1 week
--- NOTE | 2024-09-01 11:59 | ECG_ITS ---
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 Measurements Intervals [place] Rate: 131 P: -66468 PA: -39393 QRS: 143 QRSD: 124 T: 7 QT: 360 QTc: 437 Interpretive Statements 03417 Atrial fibrillation with rapid ventricular response 3114 Cannot rule out anterior myocardial infarction, age undetermined [address] depression, possible subendocardial injury or digitalis effect 21951 Twave abnormality, possible lateral ischemia or digitalis effect 5120 Possible right ventricular hypertrophy 9150 abnormal ECG Compared to ECG 10/16/2023 03:13:25 Possible ischemia now present Sinus rhythm no longer present Electronically Signed On 09-02-2024 11:59:39 EDT by JOEL BARNES M.D.
--- NOTE | 2024-09-01 11:59 | XR_ITS ---
The [address] [address] Patient Name: CHICO BAKER MRN: [id number] date: 1940 Sex: M Assigned Patient Location: ER Current Patient Location: ER Accession/Order Number: [id number] Exam Date: 09/01/2024 12:47 Report Date: 09/01/2024 12:48 At the request of: DAGO AGUILAR MD Procedure: XR chest 1V XR chest 1V 09/01/2024 12:16 PM SIGNS AND SYMPTOMS: ^SOB ^Y PROTOCOL: Frontal radiograph of the chest COMPARISON: 10/16/2023 FINDINGS: The trachea is midline. Atherosclerotic changes are noted in the thoracic aorta. The heart and mediastinal structures are within normal limits. There is a cardiac monitoring device along the left anterior chest wall. The lung parenchyma is clear. The bony thorax is intact. Degenerative changes are noted in the shoulders and thoracic spine. XR/XR chest 1V IMPRESSION: No acute cardiopulmonary pathology. Impression dictated by: Cruz Jain M.D. 09/01/2024 12:48 PM Dictation Location: [place] [address] Electronically authenticated by: [id number] Y Date: 09/01/2024 12:48
[2024-09-01] MEDS: DILTIAZEM HCL 25 MG/5 ML VIAL 10 MG IV (12:05)
--- NOTE | 2024-09-01 12:05 | ECG_ITS ---
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 Measurements Intervals [place] Rate: 80 P: -24407 [place]: -87138 QRS: 141 QRSD: 130 T: 7 QT: 418 QTc: 454 Interpretive Statements 84129 Atrial flutter with aberrant conduction, or ventricular premature complexes 3114 Cannot rule out anterior myocardial infarction, age undetermined [address] depression, possible subendocardial injury 4564 Twave abnormality, possible lateral ischemia 7100 Abnormal right axis deviation 9150 abnormal ECG Compared to ECG 09/01/2024 11:54:13 Ventricular premature complex(es) now present Aberrant conduction of supraventricular beat(s) now present Atrial fibrillation no longer present Electronically Signed On 09-02-2024 12:00:51 EDT by JOEL BARNES M.D.
[2024-09-01 12:10] LABS: Basophils Percent Auto 0.4 % (0.2-2.0); Eosinophils Absolute Auto 0.1 10^3/uL (0.0-0.7); Eosinophils Percent Auto 0.5 % (0.9-7.0); Hematocrit 36.8 % (42.0-54.0); Hemoglobin 11.8 g/dL (14.0-18.0); Immature Granulocytes Abs Auto 0.03 10^3/uL (0.00-0.03); Immature Granulocytes Pct Auto 0.3 % (0.0-0.5); Lymphocytes Absolute Auto 1.7 10^3/uL (1.2-3.8); Lymphocytes Percent Auto 17.9 % (20.5-60.0); Mean Corpuscular HGB Conc 32.1 g/dL (29.9-35.2); Mean Corpuscular Volume 93.6 fL (80.0-94.0); Mean Platelet Volume 10.7 fL (9.5-13.5); Monocytes Absolute Auto 0.9 10^3/uL (0.3-0.8); Monocytes Percent Auto 9.4 % (1.7-12.0); Neutrophils Absolute Auto 6.9 10^3/uL (1.4-6.5); Neutrophils Percent Auto 71.5 % (43.0-75.0); Platelet Count 179 10^3/uL (150-450); Red Blood Count 3.93 10^6/uL (4.70-6.10); Red Cell Distribution Width 13.5 % (11.0-15.0); White Blood Count 9.6 10^3/uL (4.0-11.0)
[2024-09-01] MEDS: dilTIAZem HCL 125 MG in 0.9 % SODIUM CHLORIDE 100 ML IV (12:16)
[2024-09-01 12:32] LABS: Anion Gap 15.9; BUN Creatinine Ratio 23.3; Calcium 8.8 mg/dL (8.5-10.1); Carbon Dioxide 25.1 mmol/L (21.0-32.0); Chloride 108 mmol/L (98-107); Estimated GFR (African America >60 (>=60 mL/min/1.73m^2); Estimated GFR (Non-African Ame >60 (>=60 mL/min/1.73m^2); Glucose 127 mg/dL (74-106); Sodium 145 mmol/L (136-145); Troponin I High Sensitivity 31.5 pg/mL (4.0-76.1)
--- NOTE | 2024-09-01 12:46 | ECG_ITS ---
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 Measurements Intervals [place] Rate: 81 P: 90 [place]: 218 QRS: 113 QRSD: 134 T: 3 QT: 440 QTc: 478 Interpretive Statements Atrial flutter 2330 Nonspecific intraventricular conduction block 3114 Cannot rule out anterior myocardial infarction, age undetermined 4564 Twave abnormality, possible lateral ischemia 9150 abnormal ECG Compared to ECG 09/01/2024 12:05:02 Aberrant conduction of supraventricular beat(s) no longer present Electronically Signed On 09-02-2024 12:03:31 EDT by JOEL BARNES M.D.
== END 2024-09-01 13:38 | disposition home or self-care (01) ==
PROVIDERS: Emergency Provider Emergency Medicine; PCP Internal Medicine
DX: I48.91 Unspecified atrial fibrillation (principal); R06.02 Shortness of breath; R07.9 Chest pain, unspecified; Z87.891 Personal history of nicotine dependence
CPT/HCPCS: 36415; 71045; 80048; 84484; 85025; 93005; 96365; 96376; 99285

== ENCOUNTER 2024-09-02 09:22 | Emergency (ER) | payer MEDICARE, OTHER, SELFPAY ==
--- OUTSIDE RECORDS SUMMARY | 2023-09-24 04:15 | XMS_ITS ---
Author Organization [facility] Address [address] [place] [address] Care Team Providers Care Keyliner Name Role Phone Shailesh Vinson DO Primary Care Provider Maria Eugenia Robbins [phone] REASON FOR VISIT [facility] and possible liver/lymph node and bile duct excision Encounters Encounter Location Date Provider Diagnosis [facility] Outpatient [address] [address] 09/24/2023 Maria Eugenia Berry Plan Of Treatment No Information Progress Notes * Reynaldo POLANCO AbadDOB:[birth year] (84 yo M)Acc No.[id number]:09/24/2023 Patient: Reynaldo RALPH Provider: Adrien Berry MD :1940 A ge:83 Y S ex:Male Date:09/24/2023 Address:[id number] Pcp:Shailesh Vinson DO * Images: * Electronic signature of Maria Eugenia Berry MD on 09/02/2024 at 09:47 AM EDT Sign off status: Pending * Provider: Adrien Berry MD Date: 0 09/24/2023 Generated for Printi ng/Faxing/eTransmitting on: 09/02/2024 09:47 AM EDT
--- OUTSIDE RECORDS SUMMARY | 2023-10-12 05:30 | XMS_ITS ---
Author Organization [facility]cialists [facility] Address [address] [place] [address] Care Team Providers Care Repairer [employer] Name Role Phone Shailesh Vinson DO Primary Care Provider Unavaila Maria Eugenia Nam Unavailable [phone] REASON FOR VISIT 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
--- OUTSIDE RECORDS SUMMARY | 2024-08-31 13:28 | XMS_ITS | Encounter Summary ---
Author Organization [facility] Address [address] [place] [address] Care Team Providers Care Plating Engineer Name Role Phone KarelShailesh Primary Care Provider [phone] Reason for Referral * Imaging (Routine) - Authorized Specialty Diagnoses / Procedures Referred By Contac t Referred To Contact Cardiology Diagnoses Nonrheumatic aortic valve stenosis Procedures Transthoracic echo (TTE) complete Lizz Irvin CNP [address] [place] [address] Phone: tel: fax: [facility] [address] [place] [address] Phone: tel: fax: Referral ID Status Reason Start Date Expiration Date Visits Requested Visits Authorized [id number] Authorized Perform Procedure 07/04/2024 07/04/2025 1 1 Reason for Visit * Imaging (Routine) - Authorized Specialty Diagnoses / Procedures Referred By Contac t Referred To Contact Cardiology Diagnoses Nonrheumatic aortic valve stenosis Procedures Transthoracic echo (TTE) complete Lizz Irvin CNP [address] [place] [address] Phone: tel: fax: [facility] [address] [place] [address] Phone: tel: fax: Referral ID Status Reason Start Date Expiration Date Visits Requested Visits Authorized [id number] Authorized Perform Procedure 07/04/2024 07/04/2025 1 1 Encounter Details Date Type Department Care Team (Latest Contact Info) Description 08/31/2024 1:28 PM EDT - 08/31/2024 2:13 PM EDT Hospital Encounter [facility] Heart Station [address] [place] [address] Nonrheumatic aortic valve stenosis Discharge Disposition: Home or Self Care () Social History Tobacco Use Types Packs/Day Years Used Date Smoking Tobacco: Former Cigarettes 2 40 1 958 - 1998 Passive Smoke Exposure: Past Smokeless Tobacco: Never Alcohol Use Standard Drinks/Week Comments Not Currently 3 (1 standard drink = 0.6 oz pur e alcohol) 4x week- [employer] [facility] [employer] Answer Date Recorded In the past 12 [...] any time in the past 12 m [facility], were you homeless or living in a senior living (including now)? 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,Status post insertion of [...] Care Team (Late st Contact Info) Description 09/04/2024 11:15 AM EDT Follow-Up [facility] Heart at [facility] [address] [place] [phone] Kimani Spring MD [address] [facility] [place] [phone] 09/19/2024 3:30 PM EDT Consult [facility] Pulmonary [address] [place] [phone] Paul Mayen MD [address] [place] [address] documented as of this encounter Procedures Procedure Name Priority Date/Time Associated Diagnosis Comments COMPLETE ECHO (TTE) W/ IMAGING AGENT Routine 08/31/2024 2:29 PM EDT Nonrheumatic aortic valve stenosis documented in this encounter Results * COMPLETE ECHO (TTE) W/ IMAGING AGENT (08/31/2024 2:29 PM EDT) Anatomical Region Laterality Modality Other 08/31/2024 1:34 PM EDT Narrative 08/31/2024 2:48 PM EDT 1 1 [place] [facility] Heart Station [address] [place] [address] (fax) Echocardiogram-[facility] Name: REYNALDO POLANCO Study Date: 08/31/2024 01:34 PM B/P: / HR: Date of : 1940 Location: [facility] Height: 66 in. Age: 84 year(s) Patient Room: Weight: 125 lb. 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 Examination: Echocardiogram (Complete), Lumason Contrast Image Quality: Technically Difficult study Patient Consent: Procedure explained to patient Exam Details Contrast: I.V. dose of Lumason Conclusions Left Ventricle: The left ventricle is normal size. Global left ventricular systolic function is difficult to assess due to rhythm but appears reduced. Left ventricular wall thickness is normal. Right Ventricle: The right ventricle is normal in size. Right ventricular systolic function is difficult to assess. Unable to assess right sided pressures due to lack of measurable tricuspid regurgitation. Left Atrium: The left atrium is normal in size. Aortic Valve: The TAVR valve is well seated in the aortic position with normal Doppler flows. Overall Conclusions: Patient having chest pain for multiple days- Spoke with Dr. Spring and Regino Dunn PA is seeing patient in Clinic today Due to suboptimal imaging Lumason contrast was administered for opacification and better delineation of endocardial borders. Measurements Left Ventricle Label Value Normal Value LVOT VTI 14 cm (18cm - 22cm) LVOT PGmax 2 mmHg LVDd, 2D 4.58 cm (4.2cm - 5.9cm) LVDs, 2D 3.77 cm (2.1cm - 4cm) IVSd, 2D 0.81 cm (0.6cm - 1.1cm) LVPWd, 2D 0.69 cm (0.6cm - 1cm) LV Mass, 2D ASE 107.66 g LV Mass Index, 2D ASE 65.6 g/m?? (50g/m?? - 102.4g/m??) RWT, MM 0.3 (0 - 0.42) LVSVI, 2D 22 ml/m2 LVOT PGmean 1 mmHg Right Ventricle Label Value Normal Value RVDd, 2D 4.1 cm (1.9cm - 3.8cm) Left Atrium Label Value Normal Value LA Volume, BP 46 ml (18ml - 58ml) LADs, 2D 3.7 cm (3cm - 4cm) LAESV index, BP 28 ml/m?? Aortic Valve Label Value Normal Value AV DVI 0.65 AV VTI 24 cm Great Vessels Label Value Normal Value IVC 1.5 cm (1.2cm - 2.3cm) Valvular Assessment LVOT 0.7 - 1.1 m/sec Aortic Valve 1.0 - 1.7 m/sec Mitral Valve 0.6 - 1.3 m/sec Tricuspid Valve 0.3 - 0.7 m/sec Pulmonic Valve 0.6 - 0.9 m/sec Regurgitation Trivial No No Max Velocity 0.72 m/sec 1.11 m/s Max Gradient 5.00 mmHg Mean Gradient 2.00 mmHg Findings Left Ventricle: The left ventricle is normal size. Global left ventricular systolic function is difficult to assess due to rhythm but appears reduced. Left ventricular wall thickness is normal. Right Ventricle: The right ventricle is normal in size. Right ventricular systolic function is difficult to assess. Unable to assess right sided pressures due to lack of measurable tricuspid regurgitation. Left Atrium: The left atrium is normal in size. Right Atrium: The right atrium appears normal in size. Mitral Valve: The mitral valve is normal in mobility and thickness. Trivial mitral regurgitation. Aortic Valve: The TAVR valve is well seated in the aortic position with normal Doppler flows. No prosthesis regurgitation. There is no significant perivalvular regurgitation. Tricuspid Valve: Tricuspid valve appears normal. No tricuspid regurgitation. Pulmonic Valve: Pulmonary valve appears normal. No pulmonary regurgitation. Aorta: The aortic root is normal in size. Great Vessels: IVC: The IVC is not well visualized. Pericardium: No pericardial effusion. Procedure Staff Reading Group: [place] [facility] Control Operator: Timur Grijalva RDCS Ordering Physician: LIZZ IRVIN Procedure Note Shira Cruz MD - 08/31/2024 1 1 [place] [facility] Heart Station [address] [place] [address] [phone] (fax) Echocardiogram-[facility] Name: REYNALDO POLANCO Study Date: 08/31/2024 01:34 PM B/P: / HR: Date of : 1940 Location: [facility] Height: 66 in. Age: 84 year(s) Patient Room: Weight: 125 lb. 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 Examination: Echocardiogram (Complete), Lumason Contrast Image Quality: Technically Difficult study Patient Consent: Procedure explained to patient Exam Details Contrast: I.V. dose of Lumason Conclusions Left Ventricle: The left ventricle is normal size. Global left ventricular systolic function is difficult to assess due to rhythm but appears reduced. Left ventricular wall thickness is normal. Right Ventricle: The right ventricle is normal in size. Right ventricular systolic function is difficult to assess. Unable to assess right sided pressures due to lack of measurable tricuspid regurgitation. Left Atrium: The left atrium is normal in size. Aortic Valve: The TAVR valve is well seated in the aortic position with normal Doppler flows. Overall Conclusions: Patient having chest pain for multiple days- Spoke with Dr. Spring and Regino Dunn PA is seeing patient in Clinic today Due to suboptimal imaging Lumason contrast was administered for opacification and better delineation of endocardial borders. Measurements Left Ventricle Label Value Normal Value LVOT VTI 14 cm (18cm - 22cm) LVOT PGmax 2 mmHg LVDd, 2D 4.58 cm (4.2cm - 5.9cm) LVDs, 2D 3.77 cm (2.1cm - 4cm) IVSd, 2D 0.81 cm (0.6cm - 1.1cm) LVPWd, 2D 0.69 cm (0.6cm - 1cm) LV Mass, 2D ASE 107.66 g LV Mass Index, 2D ASE 65.6 g/m?? (50g/m?? - 102.4g/m??)RWT, MM 0.3 (0 - 0.42) LVSVI, 2D 22 ml/m2 LVOT PGmean 1 mmHg Right Ventricle Label Value Normal Value RVDd, 2D 4.1 cm (1.9cm - 3.8cm) Left Atrium Label Value Normal Value LA Volume, BP 46 ml (18ml - 58ml) LADs, 2D 3.7 cm (3cm - 4cm) LAESV index, BP 28 ml/m?? Aortic Valve Label Value Normal Value AV DVI 0.65 AV VTI 24 cm Great Vessels Label Value Normal Value IVC 1.5 cm (1.2cm - 2.3cm) Valvular Assessment LVOT 0.7 - 1.1 m/sec Aortic Valve 1.0 - 1.7 m/sec Mitral Valve 0.6 - 1.3 m/sec Tricuspid Valve 0.3 - 0.7 m/sec Pulmonic Valve 0.6 - 0.9 m/sec Regurgitation Trivial No No Max Velocity 0.72 m/sec 1.11 m/s Max Gradient 5.00 mmHg Mean Gradient 2.00 mmHg Findings Left Ventricle: The left ventricle is normal size. Global left ventricular systolic function is difficult to assess due to rhythm but appears reduced. Left ventricular wall thickness is normal. Right Ventricle: The right ventricle is normal in size. Right ventricular systolic function is difficult to assess. Unable to assess right sided pressures due to lack of measurable tricuspid regurgitation. Left Atrium: The left atrium is normal in size. Right Atrium: The right atrium appears normal in size. Mitral Valve: The mitral valve is normal in mobility and thickness. Trivial mitral regurgitation. Aortic Valve: The TAVR valve is well seated in the aortic position with normal Doppler flows. No prosthesis regurgitation. There is no significant perivalvular regurgitation. Tricuspid Valve: Tricuspid valve appears normal. No tricuspid regurgitation. Pulmonic Valve: Pulmonary valve appears normal. No pulmonary regurgitation. Aorta: The aortic root is normal in size. Great Vessels: IVC: The IVC is not well visualized. Pericardium: No pericardial effusion. Procedure Staff Reading Group: [place] [facility] Control Operator: Timur Grijalva RDCS Ordering Physician: LIZZ IRVIN Lizz Irvin [facility] CV ECHO PROCEDURES Final Resu lt documented in this encounter Visit Diagnoses Diagnosis Nonrheumatic aortic valve stenosis documented in this encounter Administered Medications Inactive Administered Medications - up to 3 most recent administrations Medication Order MAR Action Action Date Dose Rate Site sulfur hexafluoride microsphr (Lumason) injection 24.28 mg 24.28 mg (2 mL), intravenous, Once in imaging, Starting on Meghan 08/31/24 at 1429, For 1 dose Given 08/31/2024 2:30 PM EDT 24.28 mg documented in this encounter Care Teams Plating Engineer Relationship Specialty Start Date End Date Shailesh Vinson DO [address] [facility] [phone] PCP - General Family Medicine 08/04/23 Dr. Sheri Christiansen [address] [address] Territory Outside Sales Manager Cardiology 08/18/23 documented as of this encounter
--- OUTSIDE RECORDS SUMMARY | 2024-08-31 14:14 | XMS_ITS | Encounter Summary ---
Author Organization [facility] Address [address] [place] [address] Care Team Providers Care Marketing Operations Specialist Name Role Phone Shailesh Vinson DO Primary Care Provider [phone] Reason for Visit * (Routine) - Pending Review Specialty Diagnoses / Procedures Referred By Contac t Referred To Contact Diagnoses Coronary artery disease involving [place] coronary artery of [place] heart without angina pectoris Paroxysmal atrial fibrillation (CMS/HCC) Procedures ECG 12 lead Harika Rees CNP [address] [place] [address] Phone: tel: fax: Referral ID Status Reason Start Date Expiration Date V isits Requested Visits Authorized [id number] Pending Review 08/31/2024 08/31/2025 1 1 Encounter Details Date Type Department Care Team (Latest Contact Info) Description 08/31/2024 2:14 PM EDT - 08/31/2024 11:59 PM EDT Hospital Encounter [facility] Heart and Vascular Center Heart Station [address] [place] [address] Arrived Discharge Disposition: Home or Self Care () Social History Tobacco Use Types Packs/Day Years Used Date Smoking Tobacco: Former Cigarettes 2 40 1 958 - 1997 Passive Smoke Exposure: Past Smokeless Tobacco: Never Alcohol Use Standard Drinks/Week Comments Not Currently 3 (1 standard drink = 0.6 oz pur e alcohol) 4x week- [employer] [facility] Utilities Answer Date Recorded In the past 12 months has [employer] electric, gas, oil, or water company threatened [...] any time in the past 12 m [facility], were you homeless or living in a detention (including now)? No 08/02/2024 Hunger Vital Sign [...] 75 mg tabletIndications: Coronary artery disease involving [place] coronary artery of [place] heart without angina pectoris,Status post insertion of [...] Info) Description 09/04/2024 11:15 AM EDT Follow-Up [place] [address] [place] [address] Kimani Spring MD [address] [facility] [place] [address] 09/19/2024 3:30 PM EDT Consult [facility] Pulmonary [address] [place] [address] Paul Mayen MD [address] [place] [address] documented as of this encounter Procedures Procedure Name Priority Date/Time Associated Diagnosis Comments ECG 12-LEAD Routine 08/31/2024 2:20 PM EDT Coronary artery disease involving [place] coronary artery of [place] heart without angina pectoris Paroxysmal atrial fibrillation (CMS/HCC) documented in this encounter Results * ECG 12 lead (08/31/2024 2:20 PM EDT) Ventricular Rate 90 BPM GE MUSE QRS DURATION 138 ms GE MUSE QT Interval 408 ms GE MUSE QTC CALCULATION(BAZE TT) 499 ms GE MUSE R-Ward 57 degrees GE MUSE T Wave [place] 39 degrees GE MUSE 08/31/2024 2:17 PM EDT 08/31/2024 2:27 PM EDT Impressions GE MUSE - 08/31/2024 2:27 PM EDT Sinus rhythm with Premature atrial complexes Non-specific intra-ventricular conduction block Minimal voltage criteria for LVH, may be normal variant ( Cj product ) Cannot rule out Anterior infarct , age undetermined Abnormal ECG When compared with ECG of 10-AUG-2024 15:25, QRS axis Shifted left Confirmed by Saloni JOE, L.S. (2) on 08/31/2024 2:27:23 PM Narrative Procedure Note Brianna Joe MD - 08/31/2024 IMPRESSION: Sinus rhythm with Premature atrial complexes Non-specific intra-ventricular conduction block Minimal voltage criteria for LVH, may be normal variant ( [place] product ) Cannot rule out Anterior infarct , age undetermined Abnormal ECG When compared with ECG of 10-AUG-2024 15:25, QRS axis Shifted left Confirmed by Saloni JOE, L.S. (2) on 08/31/2024 2:27:23 PM us Harika Rees CNP ECG ORDERABLES Final Result GE MUSE documented in this encounter Visit Diagnoses Not on filedocumented in this encounter Care Teams Marketing Operations Specialist Relationship Specialty Start Date End Date Shailesh Vinson DO [address] [place] [address] [place] [address] PCP - General Family Medicine 08/04/23 Dr. Sheri Christiansen [address] [place] [address] Ocean Rescue Lieutenant Cardiology 08/18/23 documented as of this encounter
--- OUTSIDE RECORDS SUMMARY | 2024-08-31 14:15 | XMS_ITS | Encounter Summary ---
Author Organization [facility] Address [address] [place] [address] Care Team Providers Care Commercial Credit Reviewer Name Role Phone Shailesh Vinson DO Primary Care Provider [phone] Encounter Details Date Type Department Care Team (Late st Contact Info) Description 08/31/2024 2:15 PM EDT Office Visit [facility] Cardiology Clinic [address] [place] [phone] Regino Corral, AIR CONTROL/ANTI AIR WARFARE OFFICER [address] [place] [address] Chest pain, unspecified type (Primary Dx); Severe aortic valve stenosis; S/P TAVR (transcatheter aortic valve replacement); RIVERA (dyspnea on exertion); Coronary artery disease involving [place] coronary artery of [place] heart without angina pectoris; PAF (paroxysmal atrial fibrillation) ([facility]/HCC); Implantable loop recorder present; Primary hypertension Social History Tobacco Use Types Packs/Day Years Used Date Smoking Tobacco: Former Cigarettes 2 40 1 958 - 1998 Passive Smoke Exposure: Past Smokeless Tobacco: Never Tobacco Cessation:Counseling Given: No Alcohol Use Standard Drinks/Week Comments Not Currently 3 (1 standard drink = 0.6 oz pur e alcohol) 4x week- vivian [facility] Gdd Hcanalyticsities Answer Date Recorded In the past 12 months has e [employer], gas, oil, or water [employer] threatened to shut off services in your [...] any time in the past 12 m [facility], were you homeless or living in a group home (including now)? No 08/02/2024 Hunger Vital Sign [...] Sign Reading Time Taken Comments Blood Pressure 162/62 08/31/2024 2:42 PM EDT Pulse 69 08/31/2024 2:42 PM EDT Temperature 36.6 C (97.8 F) 08/31/2024 2:42 PM EDT Respiratory Rate - - Oxygen Saturation - - Inhaled Oxygen Concentration - - Weight 56.7 kg (125 lb) 08/31/2024 2:42 PM EDT Height 167.6 cm (5' 6 ) 08/31/2024 2:42 PM EDT Body Mass Index 20.18 08/31/2024 2:42 PM EDT documented in this encounter Progress Notes * Regino Corral, JOANNA - 08/31/2024 2:15 PM EDT Images from the original note were not included. SUBJECTIVE Reason for Visit: Reynaldo Polanco is a 84 y.o. year old male patient being seen for arrhythmia found during echocardiogram today per photovoltaic testing technician, reports chest pain also. HPI: Reynaldo Polanco is a 84 y.o. 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 08/31/2024 office visit: Patient seen evaluated in the office followed by his echocardiogram. The performing Gun Examiner explained during exam she had noticed some concerning arrhythmias during his ultrasound. He also complained of chest pain. I agreed to see the patient. Seen and evaluated in the office accompanied by his . He endorses chest pain last night that woke him up from sleep lasting 20 minutes dull in nature, and also the night before he went to bed a similar episode. It did not radiate, and went away on its own. Endorses SOB that stable. Denies palpitations, or LE leg swelling Medical History[1] Surgical History[2] Problem List[3] family history includes Heart disease in his mother; No Known Problems in his father and sister. Social History[4] OBJECTIVE Visit Vitals Temp 36.6 ??C (97.8 ??F) (Temporal) Ht 1.676 m (5' 6 ) Wt 56.7 kg (125 lb) BMI 20.18 kg/m?? Smoking Status Former BSA 1.62 m?? Physical Exam Constitutional: General Appearance: well-developed, appears stated age. Level of Distress: no acute distress. Neck: Jugular Veins: normal jugular venous pressure. Lungs: Auscultation: no rales or rhonchi and normal breath sounds. Cardiovascular: Rate And Rhythm: regular Heart Sounds: normal S1 and s2; Systolic Murmur: not heard. Diastolic Murmur: not heard. Extremities: no edema Peripheral Pulses: Pulses: full and equal in all extremities except if noted. Abdomen: Inspection and Palpation: non distended or tender and soft. Musculoskeletal: Inspection: no joint tenderness or swelling. Neurologic: Gait: normal gait. Psychiatric: Mental Status: alert and normal affect. Skin: Inspection and Palpation: warm and dry. Allergies: Allergies[5] Outpatient Medications: Current Outpatient Medications Medication Instructions amoxicillin (AMOXIL) 2,000 mg, oral, Once as needed apixaban (ELIQUIS) 2.5 mg, oral, 2 times daily clopidogrel (PLAVIX) 75 mg, oral, Daily ferrous sulfate 325 mg, oral, Daily with breakfast folic acid (FOLVITE) 1 mg, oral, Daily losartan (COZAAR) 25 mg, oral, Nightly pravastatin (PRAVACHOL) 40 mg, Nightly Recent Labs: Orders Only on 08/31/2024 Component Date Value Ventricular Rate 08/31/2024 90 QRS DURATION 08/31/2024 138 QT Interval 08/31/2024 408 QTC CALCULATION(BAZETT) 08/31/2024 499 R-[place] 08/31/2024 57 T Wave [place] 08/31/2024 39 Hospital Outpatient Visit on 08/10/2024 Component Date Value Ventricular Rate 08/10/2024 73 Atrial Rate 08/10/2024 73 FL Interval 08/10/2024 148 QRS DURATION 08/10/2024 136 QT Interval 08/10/2024 432 QTC CALCULATION(BAZETT) 08/10/2024 475 P [place] 08/10/2024 59 R-[place] 08/10/2024 108 T Wave [place] 08/10/2024 13 No results displayed because visit has over 200 results. Hospital Outpatient Visit on 08/01/2024 Component Date Value Glucose POC 08/01/2024 166 (H) Glucose POC 08/01/2024 174 (H) I have personally reviewed and anaylzed the following laboratory results above. These findings havebeen analyzed in the context of the patient's clinical presentation. Cardiovascular Diagnostic Studies: TTE (limited) 08/02/2024: Left Ventricle: Global left ventricular systolic [...] administered foropacification and better delineation of endocardial borders 12 Lead ECG: Encounter Date: 08/31/24 ECG 12 lead Result Value Ventricular Rate 90 QRS DURATION 138 QT Interval 408 QTC CALCULATION(BAZETT) 499 R-[place] 57 T Wave [place] 39 Impression Sinus rhythm with Premature atrial complexes Non-specific intra-ventricular conduction block Minimal voltage criteria for LVH, may be normal variant ( [place] product ) Cannot rule out Anterior infarct , age undetermined Abnormal ECG When compared with ECG of 10-AUG-2024 15:25, QRS axis Shifted left Confirmed by Saloni HORN, L.S. (2) on 08/31/2024 2:27:23 PM Loop recorder-remote 07/18/2024: I have personally reviewed and analyzed all available cardiac diagnostic tests and imaging reports.Findings have been analyzed in the context of the patient's clinical status. Assessment and Plan #Chest pain #CAD Currently denies chest pain Endorses chest pain last night that woke him up from sleep lasting 20 minutes dull in nature, and also the night before he went to bed a similar episode. It did not radiate, and went away on its own.Endorses SOB that stable. Denies palpitations, or LE leg swelling Multivessel CAD status post PCI on 06/27/[address] surgery due to high risk and also notedto have aortic stenosis Twelve-lead ECG performed today, reviewed with Dr. Spring - Continue clopidogrel 75 mg daily - Continue pravastatin 40 mg nightly #Aortic stenosis Status post TAVR on 08/01/2024 #Paroxysmal A-fib [id number] at least 4 (HTN, age, [place]) - Continue apixaban 2.5 mg twice daily #Loop recorder in situ Date of implant April 12, 2024 Remote device check 07/18/2024 Presenting rhythm sinus rhythm, PVC A-fib burden 0% #Hypertension Blood pressure today is 162/62, heart rate 69 Elevated -is anxious - Continue to monitor - Continue losartan 25 mg #AAA Noted to have abdominal aortic aneurysm repair status post EVAR in January 2022 #Hyperlipidemia - Continue pravastatin 40 mg #PAD #Left carotid artery stenosis Left carotid artery stenosis status post tenting in 2022 #Former smoker Quit over 25 years ago Plan Overview: Labs - HS trop, BMP, CBC ---> patient instructed to wait for results and will make a clinical decision to send him to the emergency room or not based on his troponin level Twelve-lead ECG Has FU with Dr Spring Wednesday Case reviewed with Dr. Spring. No follow-ups on file. Regino Corral, [facility] Cardiovascular Medicine [1] Past Medical History: Diagnosis Date AAA (abdominal [...] bone Varicose veins of both lower extremities [2] Past Surgical History: Procedure Laterality Date ABDOMINAL AORTIC ANEURYSM REPAIR EVAR BRONCHOSCOPY 06/29/2024 CARDIAC CATHETERIZATION CAROTID STENT Left CATARACT EXTRACTION, BILATERAL Bilateral CHOLECYSTECTOMY 10/12/2023 Robot assisted laparoscopic cholecystectomy, partial liver resection. COLONOSCOPY CORONARY STENT PLACEMENT 06/27/2024 LEWIS CYSTOSCOPY FEMUR FRACTURE SURGERY Right KIDNEY STONE SURGERY TRANSURETHRAL RESECTION OF PROSTATE UPPER GASTROINTESTINAL ENDOSCOPY 05/30/2024 VARICOSE VEIN SURGERY Left [3] Patient Active Problem List Diagnosis Abnormal CT scan ASHD (arteriosclerotic heart disease) Benign prostatic hyperplasia with lower urinary tract symptoms Closed nondisplaced fracture of sternal end of right clavicle Contrast media allergy Diverticulosis Dysuria Femur fracture ([facility]/HCC) Foreign body in bladder Hypercholesterolemia Hyperlipidemia IFG [...] heart failure with preserved ejection fraction (HFpEF) ([facility]/HCC) Paroxysmal atrial fibrillation ([facility]/HCC) Clostridium difficile colitis Diarrhea NSTEMI (non-ST elevated myocardial infarction) ([facility]/HCC) NSVT (nonsustained ventricular tachycardia) ([facility]/HCC) Abnormal stress test Coronary artery disease involving [place] coronary artery of [place] heart with angina pectoris Triple vessel coronary artery disease Hx of ventricular tachycardia S/P cholecystectomy Hx of carotid stenosis Hemoptysis Abrasion of trachea Aortic stenosis, severe Fever Urinary tract infection without hematuria 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 (CMS/HCC) Slow transit constipation Coronary artery disease involving [place] coronary artery of [place] heart without angina pectoris Abdominal aortic aneurysm (AAA) [4] Social History Tobacco Use Smoking status: Former Current packs/day: 0.00 Average packs/day: 2.0 packs/day for 40.0 years (80.0 ttl pk-yrs) Types: Cigarettes Start date: 1955 Quit date: 1997 Years since quittin.5 Passive exposure: Past Smokeless tobacco: Never Vaping Use Vaping status: Never Used Substance Use Topics Alcohol use: Not Currently Alcohol/week: 3.0 standard drinks of alcohol Types: 3 Shots of liquor per week Comment: 4x week- whiskey Drug use: Never [5] Allergies Allergen Reactions Larry Inhibitors Hives and Unknown Other Reaction(s): Unknown Gadolinium-Containing Contrast Media Itching and Unknown Iodinated Contrast Media Hives Other Reaction(s): hives Iodine Unknown Tetanus And Diphtheria Toxoids Unknown Tetanus Immune Globulin Other Tetanus Vaccines And Toxoid Unknown and Other documented in this encounter Miscellaneous Notes * Addendum Note - Regino Corral CNP - 08/31/2024 2:15 PM EDTAddended by: REGINO CORRAL on: 08/31/2024 07:31 PM Modules accepted: Level of Service documented in this encounter Plan of Treatment Upcoming Encounters Date Type Department Care Team (Late st Contact Info) Description 09/04/2024 11:15 AM EDT Follow-Up [facility] Heart at [facility] [address] [place] [address] Kimani Spring MD [address] [facility] [place] [address] 09/19/2024 3:30 PM EDT Consult [facility] Pulmonary [address] [place] [address] Paul Mayen MD [address] [place], [place] [id number] documented as of this encounter Procedures Procedure Name Priority Date/Time Associated Diagnosis Comments HIGH SENSITIVITY TROPONIN I Routine 08/31/2024 3:23 PM EDT Chest pain, unspecified type BASIC METABOLIC PANEL Routine 08/31/2024 3:23 PM EDT Chest pain, unspecified type documented in this encounter Results * (ABNORMAL) Basic metabolic panel (08/31/2024 3:23 PM EDT) Sodium 138 136 - 145 mmol/L 08/31/2024 4:10 PM EDT [facility] ([facility]) Potassium 4.4 3.5 - 5.1 mmol/L 08/31/2024 4:10 PM EDT [facility] ([facility]) Chloride 108(H) 98 - 107 mmol/L 08/31/2024 4:10 PM EDT [facility] ([facility] CO2 21 21 - 31 mmol/L 08/31/2024 4:10 PM EDT [facility] ([facility] BUN 19 7 - 25 mg/dL 08/31/2024 4:10 PM EDT [facility] ([facility]) Creatinine 0.79 0.70 - 1.30 mg/dL 08/31/2024 4:10 PM EDT [facility] ([facility]) Glucose 106(H) 70 - 100 mg/dL 08/31/2024 4:10 PM EDT [facility] ([facility]) Calcium 8.9 8.6 - 10.3 mg/dL 08/31/2024 4:10 PM EDT [facility] ([facility]) Anion Gap 13 7 - 20 mmol/L 08/31/2024 4:10 PM EDT [facility] ([facility]) eGFR 88.7 >60.0 mL/min/1. 73m*2 08/31/2024 4:10 PM EDT [facility] ([facility]) Comment:[facility] s estimated glomerular filtration rate (eGFR) will [...] any one group of individuals. BUN/Creatinine Ratio 24.1 08/07 4:10 PM EDT [facility] ([facility]) Blood Venous blood specimen / Unknown Venipuncture / Unknown 08/31/2024 3:23 PM EDT 08/31/2024 3:27 PM EDT us Regino Corral [facility] BLOOD ORDERABLES Final Resul t [facility] ([facility]) [address] [place] [address] * (ABNORMAL) High Sensitivity Troponin I (08/31/2024 3:23 PM EDT) High Sensitivity Troponin I 25(H) <20 ng/L 08/31/2024 4:10 PM EDT [facility] ([place]) Blood Venous blood specimen / Unknown Venipuncture / Unknown 08/31/2024 3:23 PM EDT 08/31/2024 3:27 PM EDT us Regino Corral [facility] BLOOD ORDERABLES Final Resul t [facility] ([place]) [address] [place] [address] documented in this encounter Visit Diagnoses Diagnosis Chest pain, unspecified type- Primary Severe aortic valve stenosis Aortic valve disorders S/P TAVR (transcatheter aortic valve replacement) RIVERA (dyspnea on exertion) Other dyspnea and respiratory abnormality Coronary artery disease involving [place] coronary artery of [place] heart without angina pectoris PAF (paroxysmal atrial fibrillation) ([facility]) Atrial fibrillation Implantable loop recorder present Primary hypertension Unspecified essential hypertension documented in this encounter Care Teams Commercial Credit Reviewer Relationship Specialty Start Date End Date Shailesh Vinson DO [address] [place] [address] [place] [address] PCP - General Family Medicine 08/04/23 Dr. Sheri Christiansen [address] [facility] [address] [place] [address] Mounted Police Officer Cardiology 08/18/23 documented as of this encounter
[2024-09-02] VITALS (31 sets, daily range): BP systolic 93–145; BP diastolic 57–102; PULSE 77–147; TEMP 36.4; O2SAT 96–100; BMI 20.2
--- NOTE | 2024-09-02 09:33 | ECG_ITS ---
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 Measurements Intervals [place] Rate: 147 P: -10969 [place]: -50346 QRS: 161 QRSD: 120 T: 56 QT: 358 QTc: 442 Interpretive Statements Atrial flutter with rapid ventricular response 3114 Cannot rule out anterior myocardial infarction, age undetermined [address] depression, probably digitalis effect 7100 Abnormal right axis deviation 9150 abnormal ECG Compared to ECG 09/01/2024 12:45:41 ST (T wave) deviation now present Right-axis deviation now present Electronically Signed On 09-02-2024 12:08:16 EDT by JOEL BARNES M.D.
--- NOTE | 2024-09-02 09:33 | XR_ITS ---
The [address] [address] Patient Name: CHICO BAKER MRN: [id number] date: 1940 Sex: M Assigned Patient Location: ER Current Patient Location: ED.MAIN Accession/Order Number: [id number] Exam Date: 09/02/2024 10:21 Report Date: 09/02/2024 10:21 At the request of: DAGO AGUILAR MD Procedure: XR chest 1V PA CHEST: CLINICAL HISTORY: Tachycardia COMPARISON: 09/01/2024 Stable cardiomediastinal silhouette. Lungs are clear effusion or pneumothorax. XR/XR chest 1V IMPRESSION: Negative acute pleural-parenchymal disease. Impression dictated by: Jordan Fair M.D. 09/02/2024 10:21 AM Dictation Location: [place] [address] Electronically authenticated by: [id number] Y Date: 09/02/2024 10:21
--- NOTE | 2024-09-02 09:35 | ED.GENADUL1 ---
HPI HPI - General Adult General Chief complaint: Arrhythmia/Palpitations Stated complaint: AFIB/HIGH BLOOD PRESSURE Time Seen by Provider: 09/02/24 09:25 Source: patient Mode of arrival: Wheelchair History of Present Illness HPI narrative: 84-year-old male presents for fast heartbeat. He was seen here yesterday for similar circumstances and he was given 10 mg of IV Cardizem and he converted and was asymptomatic and was discharged home after negative workup. He was fine last night and then less than an hour ago after breakfast he developed palpitations again and his brought him in. His states that the patient did not want to come in. No syncope and he does not complain of chest pain but has the sense of palpitations. Related Data Home Medications ?Medication ?Instructions ?Recorded ?Confirmed pravastatin 40 mg tablet 40 mg PO QPM 03/12/23 09/01/24 losartan 50 mg tablet 25 mg PO QPM 10/14/23 09/01/24 clopidogrel 75 mg tablet 75 mg PO DAILY 09/01/24 09/01/24 ferrous sulfate 325 mg (65 mg 325 mg PO DAILY 09/01/24 09/01/24 iron) tablet folic acid 1 mg tablet 1 mg PO DAILY 09/01/24 09/01/24 Previous Rx's ?Medication ?Instructions ?Recorded apixaban 2.5 mg tablet (Eliquis) 2.5 mg PO BID #60 tabs 10/17/23 Allergies Allergy/AdvReac Type Severity Reaction Status Date / Time SHALINI Inhibitors Allergy Unknown Unknown Verified 09/22/23 21:07 Iodinated Contrast Media Allergy Unknown Hives Verified 09/22/23 21:07 iodine Allergy Unknown Hives Verified 09/22/23 21:07 tetanus toxoid, adsorbed Allergy Unknown Unknown Verified 09/22/23 21:07 Opioid HPI Opioid Management Most Recent Opioid Data: Last Pain Scale 0 09/01/24, 13:37 Last ED Pain Assessment 09/01/24, 13:37 Last ORT Total Score 0 10/14/23, 14:31 Last ORT Risk Category Low Risk 10/14/23, 14:31 Review of Systems ROS Narrative A ten point review of systems is negative except as noted above. PFS PFS Medical History (Updated 09/02/24 @ 12:35 by Walt Chadwick MD) Hyponatremia ?E87.1 - Hypo-osmolality and hyponatremia (ICD-10) Acute on chronic diastolic (congestive) heart failure ?I50.33 - Acute on chronic diastolic (congestive) heart failure (ICD-10) NSTEMI (non-ST elevated myocardial infarction) ?I21.4 - Non-ST elevation (NSTEMI) myocardial infarction (ICD-10) Atrial fibrillation with RVR ?I48.91 - Unspecified atrial fibrillation (ICD-10) Clavicular fracture ?S42.009A - Fracture of unspecified part of unspecified clavicle, initial encounter for closed fracture (ICD-10) Presence of internal carotid stent (~07/2022) ?Z95.828 - Presence of other vascular implants and grafts (ICD-10) Aortic valve stenosis ?I35.0 - Nonrheumatic aortic (valve) stenosis (ICD-10) Heart murmur ?R01.1 - Cardiac murmur, unspecified (ICD-10) Carotid stenosis ?I65.29 - Occlusion and stenosis of unspecified carotid artery (ICD-10) Anemia ?D64.9 - Anemia, unspecified (ICD-10) Femur fracture (~10/2021) ?S72.90XA - Unspecified fracture of unspecified femur, initial encounter for closed fracture (ICD-10) AAA (abdominal aortic aneurysm) ?I71.40 - Abdominal aortic aneurysm, without rupture, unspecified (ICD-10) Heartburn ?R12 - Heartburn (ICD-10) Delayed recovery from anesthesia Urethral stricture ?N35.919 - Unspecified urethral stricture, male, unspecified site (ICD-10) Post-void dribbling ?N39.43 - Post-void dribbling (ICD-10) Penile rash ?R21 - Rash and other nonspecific skin eruption (ICD-10) Paget's disease Nocturia ?R35.1 - Nocturia (ICD-10) Incontinence ?R32 - Unspecified urinary incontinence (ICD-10) Microhematuria ?R31.29 - Other microscopic hematuria (ICD-10) Impotence ?N52.9 - Male erectile dysfunction, unspecified (ICD-10) Hypertension ?I10 - Essential (primary) hypertension (ICD-10) Hyperlipidemia ?E78.5 - Hyperlipidemia, unspecified (ICD-10) Kidney stones ?N20.0 - Calculus of kidney (ICD-10) Gross hematuria ?R31.0 - Gross hematuria (ICD-10) Erectile dysfunction ?N52.9 - Male erectile dysfunction, unspecified (ICD-10) Dysuria ?R30.0 - Dysuria (ICD-10) BPH (benign prostatic hyperplasia) ?N40.0 - Benign prostatic hyperplasia without lower urinary tract symptoms (ICD-10) Asymptomatic microscopic hematuria ?R31.21 - Asymptomatic microscopic hematuria (ICD-10) ASHD (arteriosclerotic heart disease) ?I25.10 - Atherosclerotic heart disease of [place] coronary artery without angina pectoris (ICD-10) Surgical History H/O lithotripsy ?Z98.890 - Other specified postprocedural states (ICD-10) History of open reduction and internal fixation (ORIF) procedure (~10/2021) ?Z98.890 - Other specified postprocedural states (ICD-10) Hx of esophagogastroduodenoscopy ?Z98.890 - Other specified postprocedural states (ICD-10) H/O cardiac catheterization ?Z98.890 - Other specified postprocedural states (ICD-10) H/O arthroscopy of knee ?Z98.890 - Other specified postprocedural states (ICD-10) H/O colonoscopy ?Z98.890 - Other specified postprocedural states (ICD-10) H/O cystoscopy ?Z98.890 - Other specified postprocedural states (ICD-10) H/O transurethral resection of prostate ?Z98.890 - Other specified postprocedural states (ICD-10) ?Z90.79 - Acquired absence of other genital organ(s) (ICD-10) S/P AAA repair (~02/2022) ?Z98.890 - Other specified postprocedural states (ICD-10) ?Z86.79 - Personal history of other diseases of the circulatory system (ICD-10) S/P cystourethroscopy with dilation of urethral stricture ?Z98.890 - Other specified postprocedural states (ICD-10) Social History Within the past year, how often did you have a drink containing alcohol: 2-3 times a week Smoking status: Former smoker Non-prescribed substance use: denies use Previous occupational history: retired Highest level of school completed/degree received: high school graduate Are you now , , , , never or living with a partner: In a typical week, how many times do you talk on the telephone with family, friends, or neighbors: twice per week How often do you get together with friends or relatives: twice per week Little interest or pleasure in doing things: not at all Feeling down, depressed, or hopeless: not at all Feel stressed/tense/nervous/anxious/difficulty sleeping: not at all Do you think of yourself as: straight/heterosexual Gender Identity: male Exam Narrative Exam Narrative: Nurses note and vital signs reviewed and patient is not hypoxic. General: The patient appears well and in no apparent distress. Patient is resting comfortably on cart. Skin: Warm, dry, no pallor noted. There is no rash noted. Head: Normocephalic, atraumatic Eye: Normal conjunctiva, no drainage Ears, Nose, Mouth, and Throat: oral mucosa is moist. Nares patent. Cardiovascular: Irregularly irregular and tachycardic Respiratory: Patient is in no distress, no accessory muscle use, lungs are clear to auscultation, no wheezing, rales or rhonchi Back: non-tender GI: Soft and nontender Musculoskeletal: The patient has no evidence of calf tenderness, no pitting edema, symmetrical pulses noted bilaterally Neurological: Awake and alert Psychiatric: Cooperative Constitutional Vital Signs, click to edit/add: Last Vital Signs Temp 97.6 F 09/02/24 09:28 Pulse 82 09/02/24 11:10 Resp 17 09/02/24 11:10 BP 128/58 09/02/24 11:01 Pulse Ox 97 09/02/24 11:10 Course Vital Signs Vital signs: Vital Signs Temperature 97.6 F 09/02/24 09:28 Pulse Rate 147 H 09/02/24 09:28 Respiratory Rate 20 09/02/24 09:28 Blood Pressure 145/102 H 09/02/24 09:28 Pulse Oximetry 98 09/02/24 09:28 Temperature 97.6 F 09/02/24 09:28 Pulse Rate 82 09/02/24 11:10 Respiratory Rate 17 09/02/24 11:10 Blood Pressure 128/58 09/02/24 11:01 Pulse Oximetry 97 09/02/24 11:10 Medical Decision Making MDM Narrative Medical decision making narrative: The patient presented with atrial fibrillation with RVR. He was given 10 mg of IV Cardizem which slowed him down and then converting back into a sinus rhythm. He is maintained on IV Cardizem drip. Initial troponin was 85 and the repeat 126. I discussed the case with Dr. Simms who accepts the patient in transfer. The patient is stable and agreeable for transfer. Differential Diagnosis Differential Diagnosis: Atrial fibrillation, [place], rate dependent ischemia Lab Data Lab results reviewed: Yes I reviewed the patient's lab results Labs: Lab Results 09/02/24 09/02/24 Range/Units 09:33 11:10 WBC 7.8 (4.0-11.0) 10^3/uL RBC 3.65 L (4.70-6.10) 10^6/uL Hgb 11.2 L (14.0-18.0) g/dL Hct 34.2 L (42.0-54.0) % MCV 93.7 (80.0-94.0) fL MCH 30.7 (25.9-34.0) pg MCHC 32.7 (29.9-35.2) g/dL RDW 13.5 (11.0-15.0) % Plt Count 157 (150-450) 10^3/uL MPV 10.8 (9.5-13.5) fL Neut % (Auto) 74.3 (43.0-75.0) % Lymph % (Auto) 15.2 L (20.5-60.0) % [place] % (Auto) 9.1 (1.7-12.0) % Eos % (Auto) 0.8 L (0.9-7.0) % Baso % (Auto) 0.3 (0.2-2.0) % Neut # (Auto) 5.8 (1.4-6.5) 10^3/uL Lymph # (Auto) 1.2 (1.2-3.8) 10^3/uL [place] # (Auto) 0.7 (0.3-0.8) 10^3/uL Eos # (Auto) 0.1 (0.0-0.7) 10^3/uL Baso # (Auto) 0.0 (0.0-0.1) 10^3/uL Abs Immat Gran (auto) 0.02 (0.00-0.03) 10^3/uL Imm/Tot Granulo (auto) 0.3 (0.0-0.5) % Sodium 144 (136-145) mmol/L Potassium 4.3 (3.5-5.1) mmol/L Chloride 107 (98-107) mmol/L Carbon Dioxide 25.8 (21.0-32.0) mmol/L Anion Gap 15.5 BUN 20.0 H (7.0-18.0) mg/dL Creatinine 0.87 (0.70-1.30) mg/dL Est GFR ( Amer) >60 (>=60 mL/min/1.73m^2) Est GFR (Non-Af Amer) >60 (>=60 mL/min/1.73m^2) BUN/Creatinine Ratio 23.0 Glucose 168 H (74-106) mg/dL Calcium 8.6 (8.5-10.1) mg/dL Troponin I High Sens 84.8 H* 126.5 H* (4.0-76.1) pg/mL Imaging Data Chest x-ray: Radiologist's impression: ITS Impressions Chest X-Ray 09/02/24 09:33 IMPRESSION: Negative acute pleural-parenchymal disease. Impression dictated by: Jordan Fair M.D. 09/02/2024 10:21 AM Dictation Location: [place] [address] Electronically authenticated by: [id number] Y Date: 09/02/2024 10:21 ECG Data Attestation: I personally reviewed and interpreted this ECG as follows: (EKG on my interpretation shows atrial fibrillation with a rate of 147) Critical Care Time Critical Care Time Critical Care Time: Yes Total Critical Care Time: 35 Attestation: Due to the high probability of sudden and clinically significant deterioration in the patient's condition he/she required the highest level of my preparedness to intervene urgently I provided critical care time including documentation time, medication orders and management, reevaluation, vital sign assessment, ordering and reviewing of lab tests, ordering and reviewing of x-ray studies, and admission orders. Aggregate critical care time is 35 minutes including only time during which I was engaged in work directly related to his/her care and did not include time spent treating other patients simultaneously. Discharge Plan Discharge Chief Complaint: Arrhythmia/Palpitations Clinical Impression: Atrial fibrillation with RVR, Elevated troponin Patient Disposition: [facility] Time of Disposition Decision: 12:34 Discharge Location: [facility] Condition: Fair Mode of Transportation: EMS
--- OUTSIDE RECORDS SUMMARY | 2024-09-02 09:46 | XMS_ITS | Encounter Summary ---
Author Organization [facility] Address [address] [place] [address] Care Team Providers Care Business Services Representative Name Role Phone Shailesh Vinson DO Primary Care Provider [phone] Encounter Details Date Type Department Care Team (Late st Contact Info) Description 07/27/[address] [facility] [address] [facility] [address] [place] [address] Jez Vigil DO [address] [place] [address] Social History Tobacco Use Types [...] on filedocumented in this encounter Care Teams Business Services Representative Relationship Specialty Start Date End Date Shailesh Vinson DO PCP - General Internal Medicine 07/08/23 documented as of this encounter
--- OUTSIDE RECORDS SUMMARY | 2024-09-02 09:46 | XMS_ITS | Clinical Summary ---
Author Organization [employer] Address [facility][id number] [address] [place] [address] Care Team Providers Care Placement Coordinator Name Role Phone KarelShailesh Caleb AMADOR Primary Care Provider [phone] Allergies Active Allergy Reactions Criticality Noted Date [...] to Leyla. Medical Devices Implanted Type Area Youth Pastor Device Identifier Shelf Expiration Date Model / Serial / Lot Nail Im 18cm 11.5mm 125d Shrt Rtrgd Trgn Intertan Ti - [id number] Implanted:Qty: 1 on 10/27/2021 by Robert Coe MD at [facility] Nail [employer] 06/15/2031 [id number] Kit Scr 85mm 11mm 7mm Hip Troch Lg Cmpr Intgr Intlk 80mm - [id number] Implanted:Qty: 1 on 10/27/2021 by Robert Coe MD at [facility] Screw [employer] 02/25/2031 [id number] Screw Bn 32.5mm 5mm Lp Intnl Hex Fem Trgn Im Nl Sys - [id number] Implanted:Qty: 1 on 10/27/2021 by Robert Coe MD at [facility] Screw [employer] 11/26/2029 [id number] Insurance MEDICARE COMMERCIAL Advance Directives * Full Code (Latest Code Status on File) Date Activated Date Inactivated Comments 10/26/2021 10:24 PM 10/30/2021 1:51 PM Care Teams Placement Coordinator Relationship Specialty Start Date End Date Shailesh Vinson DO [address] [place] [address] PCP - General Internal Medicine 10/26/21
--- OUTSIDE RECORDS SUMMARY | 2024-09-02 09:46 | XMS_ITS | Encounter Summary ---
Author Organization [facility] Address [address] [place] [address] Care Team Providers Care Painting Contractor Name Role Phone Shailesh Vinson DO Primary Care Provider [phone] Encounter Details Date Type Department Care Team (Late st Contact Info) Description 09/01/2024 Results Follow-Up [facility] V[facility] Heart Station [address] [place] [address] Harika Rees, JOANNA [address] [place] [address] ECG 12 lead Social History Tobacco Use Types Packs/Day Years Used Date Smoking Tobacco: Former Cigarettes 2 40 1 958 - 1998 Passive Smoke Exposure: Past Smokeless Tobacco: Never Alcohol Use Standard Drinks/Week Comments Not Currently 3 (1 standard drink = 0.6 oz pur e alcohol) 4x week- [facility] Utilities Answer Date Recorded In the past 12 months has [employer], gas, oil, or water [employer] threatened to shut off services in your [...] time in the past 12 m [facility], were you homeless or living in a nursing home (including now)? No 08/02/2024 Hunger Vital [...] Info) Description 09/04/2024 11:15 AM EDT Follow-Up [facility] at [place] [address] [place] [address] Kimani Spring MD [address] [facility] [address] [place] [address] 09/19/2024 3:30 PM EDT Consult [facility] Pulmonary [address] [place] [address] Paul Mayen MD [address] [place] [address] documented as of this encounter Visit Diagnoses Not on filedocumented in this encounter Care Teams Painting Contractor Relationship Specialty Start Date End Date Shailesh Vinson DO [address] [facility] [place] [address] PCP - General Family Medicine 08/04/23 Dr. Sheri Christiansen [address] [address] Visual Effects Editor Cardiology 08/18/23 documented as of this encounter
--- OUTSIDE RECORDS SUMMARY | 2024-09-02 09:46 | XMS_ITS | Encounter Summary ---
Author Organization [facility] Address [facility][id number] [address] [place] [address] Care Team Providers Care Window Glazier Name Role Phone Shailesh Vinson DO Primary Care Provider [phone] Encounter Details Date Type Department Care Team (Late st Contact Info) Description 05/08/2022 Orders Only [facility] [address] [place] [address] Barabra Reynaga RN Social History Tobacco Use Types [...] appreciate a referral sent to [facility] [place]. documented as of this encounter Visit Diagnoses Not on filedocumented in this encounter Care Teams Window Glazier Relationship Specialty Start Date End Date Shailesh Vinson DO [address] [place] [address] PCP - General Internal Medicine 10/26/21 documented as of this encounter
--- OUTSIDE RECORDS SUMMARY | 2024-09-02 09:46 | XMS_ITS | Clinical Summary ---
Author Organization [facility] Address [address] [place] [address] Care Team Providers Care Winter Sports Manager Name Role Phone Shailesh Vinson Primary Care Provider [phone] Allergies Active Allergy Reactions Criticality Noted Date [...] (Season Ended) 2024 Insurance MEDICARE GENERIC COMMERCIAL [place] [id number] Care Teams Winter Sports Manager Relationship Specialty Start Date End Date Shailesh Vinson DO PCP - General Internal Medicine 07/08/23
--- OUTSIDE RECORDS SUMMARY | 2024-09-02 09:46 | XMS_ITS | Encounter Summary ---
Author Organization [employer] Address [id number] [address] [place] [address] Care Team Providers Care Yoker Name Role Phone Shailesh Vinson Primary Care Provider [phone] Encounter Details Date Type Department Care Team (Late st Contact Info) Description 02/03/2022 Orders Only [facility] [address] [place] [address] Barbara Reynaga RN Social History [...] he would appreciate a referral sent to [facility]. documented as of this encounter Visit Diagnoses Not on filedocumented in this encounter Care Teams Yoker Relationship Specialty Start Date End Date Shailesh Vinson DO [address] [place] [address] PCP - General Internal Medicine 10/26/21 documented as of this encounter
--- OUTSIDE RECORDS SUMMARY | 2024-09-02 09:46 | XMS_ITS | Encounter Summary ---
Author Organization [employer] Address [facility][id number] [address] [place] [address] Care Team Providers Care Sound Ranging Crewmember Name Role Phone Shailesh Vinson DO Primary Care Provider [phone] Encounter Details Date Type Department Care Team (Late st Contact Info) Description 05/15/2022 Telephone [facility] [address] [facility] [address] [place] [address] Delicia Ruiz PA-C [address] [place] [address] Social History Tobacco Use Types [...] he would appreciate a referral sent to [facility] [place]. documented as of this encounter Visit Diagnoses Not on filedocumented in this encounter Care Teams Sound Ranging Crewmember Relationship Specialty Start Date End Date Shailesh Vinson DO [address] [place] [address] PCP - General Internal Medicine 10/26/21 documented as of this encounter
--- OUTSIDE RECORDS SUMMARY | 2024-09-02 09:46 | XMS_ITS | Encounter Summary ---
Author Organization [facility] Address [facility]-[id number] [address] [place] [address] Care Team Providers Care Ethylbenzene Converter Operator Name Role Phone Shailesh Vinson DO Primary Care Provider [phone] Encounter Details Date Type Department Care Team (Late st Contact Info) Description 04/29/2022 Orders Only [facility] [address] [place] [address] Barbara Reynaga RN Social History Tobacco Use [...] appreciate a referral sent to [facility] [place]. documented as of this encounter Visit Diagnoses Not on filedocumented in this encounter Care Teams Ethylbenzene Converter Operator Relationship Specialty Start Date End Date Shailesh Vinson DO [address] [place] [address] PCP - General Internal Medicine 10/26/21 documented as of this encounter
--- OUTSIDE RECORDS SUMMARY | 2024-09-02 09:46 | XMS_ITS | Encounter Summary ---
Author Organization [facility] Address [address] [facility] [place] [address] Care Team Providers Care Bottle Tester Name Role Phone Shailesh Vinson DO Primary Care Provider [phone] Encounter Details Date Type Department Care Team (Late st Contact Info) Description 07/18/2024 Orders Only [facility] V[facility] Cardiology Clinic [address] [place] [address] Jez Martin MD [address] [place] [address] Social History Tobacco Use Types Packs/Day Years Used Date Smoking Tobacco: Former Cigarettes 2 40 1 958 - 1998 Smokeless Tobacco: Never Alcohol Use Standard Drinks/Week Comments Not Currently 3 (1 standard drink = 0.6 oz pur e alcohol) 4x week- [employer] [facility] Utilities Answer Date Recorded In the past 12 months has [employer], gas, oil, or water [employer] threatened to shut off services in your [...] in a senior living (including now)? No 06/27/2024 Hunger Vital Sign [...] Info) Description 09/04/2024 11:15 AM EDT Follow-Up [facility] Heart at [address] [address] Kimani Spring MD [address] [facility] [place] [address] 09/19/2024 3:30 PM EDT [facility] Pulmonary [address] [place] [phone] Paul Mayen MD [address] [place] [address] documented as of this encounter Procedures Procedure Name Priority Date/Time Associated Diagnosis Comments CARDIAC DEVICE CHECK - REMOTE - LOOP RECORDER (ILR) Routine 07/18/2024 12:00 AM EDT documented in this encounter Results * Cardiac device check - Remote loop recorder (ILR) (07/18/2024 12:00 AM EDT) Anatomical Region Laterality Modality Other 07/18/2024 us Jez Martin MD CV IMPLANTABLE CARDIAC DEVICE MD OCEDURES Final Result documented in this encounter Visit Diagnoses Not on filedocumented in this encounter Care Teams Bottle Tester Relationship Specialty Start Date End Date Shailesh Vinson DO [address] [facility] [place] [address] PCP - General Family Medicine 08/04/23 Dr. Sheri Christiansen [address] [facility] [address] [place] [address] Range Operator Cardiology 08/18/23 documented as of this encounter
--- OUTSIDE RECORDS SUMMARY | 2024-09-02 09:46 | XMS_ITS | Encounter Summary ---
Author Organization [employer] Address [facility][id number] [address] [place] [address] Care Team Providers Care Lead Cook Name Role Phone Shailesh Vinson Primary Care Provider [phone] Encounter Details Date Type Department Care Team (Late st Contact Info) Description 08/10/2022 [facility]phone [facility] [address] [facility] [address] [place] [address] Cleo Dodge, SHAREE Social History [...] he [facility] a [facility] documented as of this encounter Visit Diagnoses Not on filedocumented in this encounter Care Teams Lead Cook Relationship Specialty Start Date End Date Shailesh Vinson DO [facility] [place] [address] PCP - General Internal Medicine 10/26/21 documented as of this encounter
--- OUTSIDE RECORDS SUMMARY | 2024-09-02 09:46 | XMS_ITS | Encounter Summary ---
Author Organization [employer] Address [facility][id number] [address] [place] [address] Care Team Providers Care Guard Driver Name Role Phone Shailesh Vinson Primary Care Provider [phone] Encounter Details Date Type Department Care Team (Late st Contact Info) Description 08/07/2022 Telephone [facility] [address] [facility] [address] [place] [address] Cleo Dodge, RN Social History [...] he would [facility] a [facility] documented as of this encounter Visit Diagnoses Not on filedocumented in this encounter Care Teams Guard Driver Relationship Specialty Start Date End Date Shailesh Vinson DO [address] [place] [address] PCP - General Internal Medicine 10/26/21 documented as of this encounter
--- OUTSIDE RECORDS SUMMARY | 2024-09-02 09:46 | XMS_ITS | Encounter Summary ---
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 angina pectoris Paroxysmal atrial fibrillation (CMS/HCC) Procedures ECG 12 lead Harika Rees CNP [address] [place] [address] Phone: tel: fax: Referral ID Status Reason Start Date Expiration Date V isits Requested Visits Authorized [id number] Pending Review 08/31/2024 08/31/2025 1 1 Encounter Details Date Type Department Care Team (Late st Contact Info) Description 08/31/2024 Orders Only [facility] Heart Station [address] [place] [address] Harika Rees CNP [address] [place] [address] Coronary artery disease involving algaaciq coronary artery of algaaciq heart without angina pectoris (Primary Dx); Paroxysmal atrial fibrillation (CMS/HCC) Social History Tobacco Use Types Packs/Day Years Used Date Smoking Tobacco: Former Cigarettes 2 40 1 958 - 1997 Passive Smoke Exposure: Past Smokeless Tobacco: Never Alcohol Use Standard Drinks/Week Comments Not Currently 3 (1 standard drink = 0.6 oz pur e alcohol) 4x week- sivaemi [facility] Utilities Answer Date Recorded In the past [...] were you homeless or living in a halfway (including now)? 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 requested EKG to be ordered for noted irregular rhythm during echo Harika Rees [facility] Cardiology Available 7a-3pm via [employer] Chat [phone] documented in this encounter Plan of Treatment Upcoming Encounters Date Type Department Care Team (Late st Contact Info) Description 09/04/2024 11:15 AM EDT Follow-Up [facility] Heart at [facility] [address] [place] [address] Kimani Spring MD [address] [facility] [address] [facility] [place] [id number] 09/19/2024 3:30 PM EDT Consult [facility] Pulmonary [address] [place] [phone] Paul Mayen MD [address] [place] [address] documented as of this encounter Procedures Procedure Name Priority Date/Time Associated Diagnosis Comments ECG 12-LEAD Routine 08/31/2024 2:20 PM EDT Coronary artery disease involving algaaciq coronary artery of algaaciq heart without angina pectoris Paroxysmal atrial fibrillation (CMS/HCC) documented in this encounter Results * ECG 12 lead (08/31/2024 2:20 PM EDT) Ventricular Rate 90 BPM GE MUSE QRS DURATION 138 ms GE MUSE QT Interval 408 ms GE MUSE QTC CALCULATION(BAZE TT) 499 ms GE MUSE R-Helix 57 degrees GE MUSE T Wave Helix 39 degrees GE MUSE 08/31/2024 2:17 PM EDT 08/31/2024 2:27 PM EDT Impressions GE MUSE - 08/31/2024 2:27 PM EDT Sinus rhythm with Premature atrial complexes Non-specific intra-ventricular conduction block Minimal voltage criteria for LVH, may be normal variant ( Bigelow product ) Cannot rule out Anterior infarct , age undetermined Abnormal ECG When compared with ECG of 10-AUG-2024 15:25, QRS axis Shifted left Confirmed by Saloni JOE, L.S. (2) on 08/31/2024 2:27:23 PM Narrative Procedure Note Brianna Joe MD - 08/31/2024 IMPRESSION: Sinus rhythm with Premature atrial complexes Non-specific intra-ventricular conduction block Minimal voltage criteria for LVH, may be normal variant ( Bigelow product ) Cannot rule out Anterior infarct , age undetermined Abnormal ECG When compared with ECG of 10-AUG-2024 15:25, QRS axis Shifted left Confirmed by Saloni JOE, L.S. (2) on 08/31/2024 2:27:23 PM Harikayessi Rees [facility] ECG ORDERABLES Final Result [employer] documented in this encounter Visit Diagnoses Diagnosis Coronary artery disease involving algaaciq coronary artery of algaaciq heart without angina pectoris- Primary Paroxysmal atrial fibrillation (CMS/HCC) Atrial fibrillation documented in this encounter Care Teams Dental Associate Relationship Specialty Start Date End Date Shailesh Vinson DO [address] [facility] [place] [address] [place] [phone] PCP - General Family Medicine 08/04/23 Dr. Sheri Christiansen [address] [facility] [address] [place] [address] Author Cardiology 08/18/23 documented as of this encounter
--- OUTSIDE RECORDS SUMMARY | 2024-09-02 09:46 | XMS_ITS | Encounter Summary ---
Author Organization [employer] Address [id number] [address] [place] [address] Care Team Providers Care Professional Volleyball Player Name Role Phone KarelShailesh Primary Care Provider [phone] Reason for Visit * Reason Comments Med Refill Encounter Details Date Type Department Care Team (Late st Contact Info) Description 07/25/2022 Refill [facility] [address] [place] [phone] Xi Mccoy PAMichelle [address] [place] [address] Closed nondisplaced intertrochanteric fracture of [...] would appreciate a referral sent to [facility]. documented as of this encounter Visit Diagnoses Diagnosis Closed nondisplaced intertrochanteric fracture of right femur with routine healing, subsequent encounter documented in this encounter Care Teams Professional Volleyball Player Relationship Specialty Start Date End Date Shailesh Vinson DO [address] [place] [address] PCP - General Internal Medicine 10/26/21 documented as of this encounter
--- OUTSIDE RECORDS SUMMARY | 2024-09-02 09:47 | XMS_ITS | Referral Summary ---
Author Organization [facility] Address [address] [place] [address] Care Team Providers Care Comparative Sociology Professor Name Role Phone Shailesh Vinson DO Primary Care Provider [phone] Encounters Date Type Department Care Team Description 09/01/2024 Results Follow-Up [facility] Station [address] [place] [phone] Harika Rees CNP ECG 12 lead 08/31/2024 2:14 PM EDT - 08/31/2024 11:59 PM EDT Hospital Encounter [facility] Station [address] [place] [address] Arrived Discharge Disposition: Home or Self Care (01) 08/31/2024 2:15 PM EDT Office Visit [facility] [address] [place] [address] Regino Dunn CNP Chest pain, unspecified type (Primary Dx); Severe aortic valve stenosis; S/P TAVR (transcatheter aortic valve replacement); RIVERA (dyspnea on exertion); Coronary artery disease involving white mountain coronary artery of white mountain heart without angina pectoris; PAF (paroxysmal atrial fibrillation) (CMS/HCC); Implantable loop recorder present; Primary hypertension 08/31/2024 Orders Only [facility] Station [address] [place] [phone] Harika Rees CNP Coronary artery disease involving white mountain coronary artery of white mountain heart without angina pectoris (Primary Dx); Paroxysmal atrial fibrillation (CMS/HCC) 08/31/2024 1:28 PM EDT - 08/31/2024 2:13 PM EDT Hospital Encounter [facility] Heart community health [facility] [address] [place] [address] Nonrheumatic aortic valve stenosis Discharge Disposition: Home or Self Care () 08/15/2024 12:45 PM EDT Follow-Up [facility] [address] [place] [address] Jez Martin MD S/P TAVR (transcatheter aortic valve replacement) (Primary Dx) 08/10/2024 3:20 PM EDT - 08/10/2024 11:59 PM EDT Hospital Encounter [facility] Station [address] [place] [address] S/P TAVR (transcatheter aortic valve replacement) Discharge Disposition: Home or Self Care () 08/10/2024 2:00 PM EDT Follow-Up [facility] Heart community health [facility] [address] [place] [phone] Aggie, , CELL INSTALLER Hematoma of neck, sequela (Primary Dx); S/P TAVR (transcatheter aortic valve replacement) 08/10/2024 1:40 PM EDT Follow-Up [facility] Cardiology Clinic [address] [place] [phone] Kimani Spring MD S/P TAVR (transcatheter aortic valve replacement) (Primary Dx); Primary hypertension; Coronary artery disease involving white mountain coronary artery of white mountain heart without angina pectoris; PAF (paroxysmal atrial fibrillation) (CMS/HCC); Status post insertion of drug eluting coronary artery stent; PAD (peripheral artery disease) 08/01/2024 9:20 AM EDT - 08/06/2024 3:02 PM EDT Hospital Encounter [facility] [address] [place] [address] Kimani Spring MD Lee, Jai, MD Horani, Omar, MD Iqbal, Isa, MD Severe aortic valve stenosis (Primary Dx); Nonrheumatic aortic valve stenosis; S/P TAVR (transcatheter aortic valve replacement); Aortic stenosis, severe; Acute cystitis without hematuria Discharge Disposition: Home-Health Care Svc (06) 08/01/2024 Travel 08/01/2024 Refill [facility] Heart at [facility] [address] [place] [phone] Machelle Mann MA Paroxysmal atrial fibrillation ([facility]/HCC) 08/01/2024 1:15 PM EDT Anesthesia Event [facility] Heart community health [facility] [address] [address] Kathi Lyons MD Uberoi, Ravindera, MD 08/01/2024 9:16 AM EDT - 08/01/2024 9:19 AM EDT Hospital Encounter Critical access [facility] [address] [address] Nonrheumatic aortic valve stenosis Discharge Disposition: Home or Self Care () 08/01/2024 11:00 AM EDT - 08/01/2024 1:00 PM EDT Surgery [facility] Heart [facility] Vascular Lab [address] [place] [address] Kimani Spring MD TAVR 07/27/2024 Orders Only [facility] Pre-Anesthesia Clinic [address] [place] [address] Ag Hummel, SHAREE 07/26/2024 Orders Only [facility] [address] [facility] [place] [address] Lizz Mayer, JOANNA Contrast media allergy 07/19/2024 5:15 PM EDT Ancillary Procedure [facility] [address] [facility] [place] [address] Awareness of heartbeats 07/18/2024 Orders Only [facility] [address] [place] [address] Jez Martin MD 07/13/2024 Travel 07/10/2024 9:45 AM EDT Office Visit [facility] [address] [place] [address] Kimani Spring MD Nonrheumatic aortic valve stenosis (Primary Dx); Coronary artery disease involving white mountain coronary artery of white mountain heart without angina pectoris; PAF (paroxysmal atrial fibrillation) (CMS/HCC); PAD (peripheral artery disease); Contrast media allergy; Status post insertion of drug eluting coronary artery stent; Chronic anemia 07/04/2024 Orders Only [facility] Card[facility] [address] [facility] [place] [address] Lizz Mayer CNP Nonrheumatic aortic valve stenosis (Primary Dx) 06/27/2024 8:42 AM EDT - 06/30/2024 2:39 PM EDT Hospital Encounter [facility] [address] [facility] [place] [address] Kimani Spring MD Salahaldeen, Aya, MD Chang, Kyu Chul, MD Abrasion of trachea (Primary Dx); 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; Nonrheumatic aortic valve stenosis; Hemoptysis; Triple vessel coronary artery disease; Paroxysmal atrial fibrillation (CMS/HCC); Chronic anemia Discharge Disposition: Home or Self Care () 06/29/2024 3:52 PM EDT Anesthesia Event [facility] Main Operating Room [address] [facility] [place] [address] Kathi Lyons MD Brewer, Shawn, DEVIN 06/29/2024 Travel 06/27/2024 Travel 06/27/2024 1:30 PM EDT - 06/27/2024 3:30 PM EDT Surgery [facility] Heart [facility] Vascular Lab [address] [facility] [place] [address] Kimani Spring MD Percutaneous coronary intervention 06/20/2024 Orders Only [facility] Cardiology Clinic [address] [facility] [place] [address] Lizz Mayer CNP 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 (Primary Dx); Nonrheumatic aortic valve stenosis 06/20/2024 Travel 06/20/2024 Orders Only [facility] Vascular Lab [address] [place] [address] Francisca Luciano RN Nonrheumatic aortic valve stenosis (Primary Dx) 06/19/2024 8:20 PM EDT Ancillary Procedure [facility] Cardiology Clinic [address] [facility] [place] [address] Awareness of heartbeats 06/19/2024 Orders Only [place] [address] [place] [address] Evy Muhammad MA 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 06/18/2024 Orders Only [facility] Cardiology Clinic [address] [place] [address] Lizz Mayer CNP Nonrheumatic aortic valve stenosis (Primary Dx) 06/15/2024 Orders Only [facility] Cardiology Clinic [address] [place] [address] Lizz Mayer CNP Nonrheumatic aortic valve stenosis (Primary Dx) 06/06/2024 12:22 PM EDT Hospital Encounter [facility] CT Imaging [place] [facility] [place] [address] Nonrheumatic aortic valve stenosis Discharge Disposition: Home or Self Care () 06/06/2024 12:23 PM EDT - 06/06/2024 11:59 PM EDT Hospital Encounter [facility] CT Imaging [address] [facility] [place] [address] Nonrheumatic aortic valve stenosis Discharge Disposition: Home [...] 75 mg tabletIndication s:Coronary artery disease involving white mountain coronary artery of white mountain heart without angina pectoris,Status post insertion of [...] daily MiraLAX Coronary artery disease invo lving white mountain coronary artery of white [place] heart without angina pectoris 08/04/2024 Assessment & [...] post stenting Coronary artery disease invo lving white mountain coronary artery of white mountain heart with angina pectoris 06/20/2024 Assessment & [...] 0.6 oz pur e alcohol) 4x week- [employer] [facility] [employer] Answer Date Recorded In the past 12 months has [employer], [employer], or [employer] threatened to shut off services in your [...] any time in the past 12 [facility], were you homeless or living in [...] Info) Description 09/04/2024 11:15 AM EDT Follow-Up [facility] Heart [facility] [address] [place] [address] Kimani Spring MD [address] [facility] [address] [place] [phone] 09/19/2024 3:30 PM EDT Consult [facility] Pulmonary [address] [place] [phone] Paul Mayen MD [address] [place] [address] Medical Devices Implanted Type Area Snack Bar Cook Device Identifier Shelf Expiration Date Model / Serial / Lot Stent,Synerg y Mr 2.25 X 16 - [id number] Implanted:Qt y: 1 on 06/27/2024 by Kimani Spring MD at [facility] Eluting Stent N/A: Coronary [employer] [id number] 09/06/2025 [id number] / / [id number] Stent,Synerg y Mr 2.50 X 12 - [id number] Implanted:Qt y: 1 on 06/27/2024 by Kimani Spirng MD at [facility] Eluting Stent N/A: Coronary [employer] [id number] 08/01/2025 [id number] / / [id number] Monitor,Card iac,Lux,Dxii +[facility] - [id number] - [id number] Implanted:Qt y: 1 on 04/12/2024 by Jez Martin MD at [facility] Implantable Loop Recorder N/A: Chest [employer] 08/02/2025 [id number] / [id number] / Valve,Aortic ,Evolutfm+,2 9mm - [id number] - [id number] Implanted:Qt y: 1 on 08/01/2024 by Kimani Spring MD at [facility] Prosthetic Valve N/A: Aorta [employer] [id number] 03/30/2026 EVFXPLUS -29 / [id number] / Procedures Procedure Name Priority Date/Time Associated [...] 2:20 PM EDT Coronary artery disease involving white mountain coronary artery of white mountain heart without angina pectoris Paroxysmal atrial fibrillation [...] AND SCREEN Routine 08/01/2024 1:49 PM EDT AR AN ELECTIVE ENDOTRACHEAL AIRWAY Routine 08/01/2024 1:29 [...] PM EDT) [facility] High Sensitivity Troponin I 25(H) <20 ng/L 08/31/2024 4:10 PM EDT [facility] ([facility]) Blood Venous blood specimen / Unknown Venipuncture / Unknown 08/31/2024 3:23 PM EDT 08/31/2024 3:27 PM EDT us Regino Dunn CELL INSTALLER LAB BLOOD ORDERABLES Final Resul t [facility] ([facility]) [address] [place] [address] * (ABNORMAL) CBC auto differential (08/31/2024 3:23 PM EDT) Only the most recent of5 resultswithin the time period is included. Auto WBC 11.33(H) 4.00 - 10.60 10*3/uL 08/31/2024 3:35 PM EDT [facility] ([facility]) RBC 4.01(L) 4.20 - 5.70 10*6/uL 08/31/2024 3:35 PM EDT [facility] ([facility]) Hemoglobin 11.9(L) 13.0 - 17.0 g/dL 08/31/2024 3:35 PM EDT [facility] ([facility]) Hematocrit 37.9(L) 39.0 - 50.0 % 08/31/2024 3:35 PM EDT [facility] ([facility]) MCV 94.5 82.0 - 98.0 fL 08/31/2024 3:35 PM EDT [facility] ([facility]) MCH 29.7 27.0 - 33.0 pg 08/31/2024 3:35 PM EDT [facility] ([facility]) MCHC 31.4(L) 32.0 - 35.0 g/dL 08/31/2024 3:35 PM EDT [facility] ([facility]) RDW 13.4 11.5 - 15.0 % 08/31/2024 3:35 PM EDT [facility] ([facility]) Neutrophils % 75.8(H) 40.0 - 72.0 % 08/31/2024 3:35 PM EDT [facility] Lymphocytes % 14.0(L) 20.0 - 45.0 % 08/31/2024 3:35 PM EDT [facility] ([facility]) Monocytes % 8.3 5.0 - 12.0 % 08/31/2024 3:35 PM EDT [facility] ([facility]) Eosinophils % 1.1 0.0 - 6.0 % 08/31/2024 3:35 PM EDT [facility] ([facility]) Basophils % 0.4 0.0 - 1.0 % 08/31/2024 3:35 PM T [facility] ([facility]) Neutrophils Absolute 8.58(H) 1.60 - 7.60 10*3/uL 08/31/2024 3:35 PM EDT [facility] ([facility]) Lymphocytes Absolute 1.59 1.20 - 4.00 10*3/uL 08/31/2024 3:35 PM EDT [facility] ([facility]) Monocytes Absolute 0.94 0.10 - 1.00 10*3/uL 08/31/2024 3:35 PM EDT [facility]) Eosinophils Absolute 0.13 0.00 - 0.50 10*3/uL 08/31/2024 3:35 PM EDT [facility] ([facility]) Basophils Absolute 0.05 0.00 - 0.20 10*3/uL 08/31/2024 3:35 PM EDT [facility]) Platelets 195 150 - 400 10*3/uL 08/31/2024 3:35 PM EDT [facility]) nRBC % 0.0 0 % 08/31/2024 3:35 PM T [facility]) Immature Granulocytes % 0.4 0.0 - 1.0 % 08/31/2024 3:35 PM T [facility]) Immature Granulocytes Absolute 0.04 0.00 - 0.20 10*3/uL 08/31/2024 3:35 PM T [facility]) Blood Venous blood specimen / Unknown Venipuncture / Unknown 08/31/2024 3:23 PM EDT 08/31/2024 3:27 PM EDT us Lizz Mayer CELL INSTALLER LAB BLOOD ORDERABLES Final Re sult [facility] ([facility]) [address] [place] [address] * (ABNORMAL) Basic metabolic panel (08/31/2024 3:23 PM EDT) Only the most recent of9 resultswithin the time period is included. Sodium 138 136 - 145 mmol/L 08/31/2024 4:10 PM EDT [facility] ([facility]) Potassium 4.4 3.5 - 5.1 mmol/L 08/31/2024 4:10 PM EDT [facility] ([facility]) Chloride 108(H) 98 - 107 mmol/L 08/31/2024 4:10 PM EDT [facility] ([facility]) CO2 21 21 - 31 mmol/L 08/31/2024 4:10 PM EDT [facility] ([facility]) BUN 19 7 - 25 mg/dL 08/31/2024 4:10 PM EDT [facility] ([facility]) Creatinine 0.79 0.70 - 1.30 mg/dL 08/31/2024 4:10 PM EDT [facility] ([facility]) Glucose 106(H) 70 - 100 mg/dL 08/31/2024 4:10 PM EDT [facility] ([facility]) Calcium 8.9 8.6 - 10.3 mg/dL 08/31/2024 4:10 PM EDT [facility] ([facility]) Anion Gap 13 7 - 20 mmol/L 08/31/2024 4:10 PM EDT [facility] ([facility]) eGFR 88.7 >60.0 mL/min/1. 73m*2 08/31/2024 4:10 PM EDT [facility] ([facility]) Comment:[facility] s estimated glomerular filtration rate (eGFR) [...] BUN/Creatinine Ratio 24.1 08/07 4:10 PM EDT [facility] ([facility]) Blood Venous blood specimen / Unknown Venipuncture / Unknown 08/31/2024 3:23 PM EDT 08/31/2024 3:27 PM EDT us Regino Dunn [facility] LAB BLOOD ORDERABLES Final Resul t [facility] ([facility]) [address] [place], [place] [id number] * COMPLETE ECHO (TTE) W/ IMAGING AGENT (08/31/2024 2:29 PM EDT) Anatomical Region Laterality Modality Other 08/31/2024 1:34 PM EDT Narrative 08/31/2024 2:48 PM EDT [address] Heart and Vascular Center [facility] Heart Station [address] [place], [place] [id number] (fax) Echocardiogram-[facility] Name: REYNALDO BAKER Study Date: 08/31/2024 01:34 [...] No pericardial effusion. Procedure Staff Reading Group: CT Cardiovascular Group Buckle Attaching Machine Operator: Timur Grijalva RDCS Ordering Physician: LIZZ MAYER Procedure Note Shira Cruz MD - 08/31/[address] Heart and Vascular Center [facility] Heart Station [address] [place] [address] [phone] (fax) Echocardiogram-[facility] Name: REYNALDO BAKER Study Date: 08/31/2024 01:34 [...] No pericardial effusion. Procedure Staff Reading Group: CT Cardiovascular Group Buckle Attaching Machine Operator: Timur Grijalva RDCS Ordering Physician: LIZZ MAYER Lizz Mayer [facility] CV ECHO PROCEDURES Final Resu lt * ECG 12 lead (08/31/2024 2:20 PM EDT) Only the most recent of6 resultswithin the time period is included. Ventricular Rate 90 BPM GE MUSE QRS DURATION 138 ms GE MUSE QT Interval 408 ms GE MUSE QTC CALCULATION(BAZE TT) 499 ms GE MUSE R-[place] 57 degrees GE MUSE T Wave [place] 39 degrees GE MUSE 08/31/2024 2:17 PM EDT 08/31/2024 2:27 PM EDT Impressions GE MUSE - 08/31/2024 2:27 PM EDT Sinus rhythm with Premature atrial complexes Non-specific intra-ventricular conduction block Minimal voltage criteria for LVH, may be normal variant ( [place] product ) Cannot rule out Anterior infarct , age undetermined Abnormal ECG When compared with ECG of 10-AUG-2024 15:25, QRS axis Shifted left Confirmed by Saloni HORN, L.S. (2) on 08/31/2024 2:27:23 PM Narrative Procedure Note Brianna Horn MD - 08/31/2024 IMPRESSION: Sinus rhythm with Premature atrial complexes Non-specific intra-ventricular conduction block Minimal voltage criteria for LVH, may be normal variant ( [place] product ) Cannot rule out Anterior infarct , age undetermined Abnormal ECG When compared with ECG of 10-AUG-2024 15:25, QRS axis Shifted left Confirmed by Saloni HORN, L.S. (2) on 08/31/2024 2:27:23 PM us Harika Rees CELL INSTALLER ECG ORDERABLES Final Result Performing Organization Address City/[facility]/ZIP Co de Phone Number GE MUSE * (ABNORMAL) Magnesium (08/06/2024 3:42 AM EDT) Only the most recent of4 resultswithin the time period is included. Pathologist [facility] Magnesium 1.7(L) 1.9 - 2.7 mg/dL 08/06/2024 4:46 AM EDT [facility] ([facility]) Blood Venous blood specimen / Unknown Venipuncture / Unknown 08/06/2024 3:42 AM EDT 08/06/2024 4:22 AM EDT us Isa Camarillo MD LAB BLOOD ORDERABLES Final Resul t Performing Organization Address [facility] de Phone Number [facility] [address] [place] [address] * Occult blood x 1, stool (08/05/2024 8:23 PM EDT) Pathologist [facility] Fecal Occult Bld Negative Negative, None Detected 08/05/2024 8:54 PM EDT [facility] Stool Rectal contents / Unknown Non-blood Collection / Unknown 08/05/2024 8:23 PM EDT 08/05/2024 8:27 PM EDT us Isa Camarillo MD LAB BODY FLUIDS AND STOOLS ORDER LEONILA Final Result Performing Organization Address City/[facility] Co de Phone Number [facility] [address] [place] [address] * Prepare RBC (08/05/2024 8:30 AM EDT) Only the most recent of2 resultswithin the time period is included. PRODUCT CODE [id number] [facility] BL OOD BANK Unit Number [id number] [facility] BLOOD B[facility] Unit ABO A [facility] BLOOD B[facility] Unit Rh POS [facility] BLOOD [facility] Dispense Status RE [facility] BLOOD [facility] Blood Expiration Date [id number] [facility] BLOOD [facility] Product Blood Type 6200 [facility] BLOOD [facility] Unit Volume 300 ML [facility] BLO OD BANK PRODUCT CODE [id number] [facility] BL OOD BANK Unit Number [id number] [facility] BLOOD [facility] Unit ABO A [facility] BLOOD B[facility] Unit Rh POS [facility] BLOOD [facility] Dispense Status RE [facility] BLOOD [facility] Blood Expiration Date [id number] [facility] BLOOD [facility] Product Blood Type 6200 [facility] BLOOD [facility]ANK us Regino Brewer MD BLOOD BANK PRODUCT ORDERABLES Fi nal Result Performing Organization Address City/[facility]/ZIP Co de Phone Number [facility] BLOOD BANK * Lavender Top (08/05/2024 3:53 AM EDT) Only the most recent of2 resultswithin the time period is included. Extra Tube Hold for add-ons. 08/05/2024 6:01 AM EDT [facility] ([facility]) Comment:Auto resulted. Blood Venous blood specimen / Unknown 08/05/2024 3:53 AM EDT 08/05/2024 4:14 AM EDT us Isa Camarillo MD LAB BLOOD ORDERABLES Final Resul t [facility] ([facility]) [address] [place] [address] * XR chest 1 view (08/04/2024 6:35 [...] - 1.0 % 08/03/2024 2:22 PM EDT [facility] ([facility]) Neutrophils Absolute 11.2(H) 1.6 - 7.6 10*3/uL 08/03/2024 2:22 PM EDT [facility] ([facility]) Lymphocytes Absolute 1.06(L) 1.20 - 4.00 10*3/uL 08/03/2024 2:22 PM EDT [facility] ([facility]) Monocytes Absolute 1.68(H) 0.10 - 1.00 10*3/uL 08/03/2024 2:22 PM EDT [facility] ([facility]) Eosinophils Absolute 0.00 0.00 - 0.50 10*3/uL 08/03/2024 2:22 PM EDT [facility] ([facility]) Basophils Absolute 0.01 0.00 - 0.20 10*3/uL 08/03/2024 2:22 PM EDT [facility] ([facility]) Neutrophils % 79.7(H) 40.0 - 72.0 % 08/03/2024 2:22 PM EDT [facility] ([facility]) Lymphocytes % 7.5(L) 20.0 - 45.0 % 08/03/2024 2:22 PM EDT [facility] ([facility]) Monocytes % 11.9 5.0 - 12.0 % 08/03/2024 2:22 PM EDT [facility] ([facility]) Eosinophils % 0.0 0.0 - 6.0 % 08/03/2024 2:22 PM EDT [facility] ([facility]) Basophils % 0.1 0.0 - 1.0 % 08/03/2024 2:22 PM EDT [facility] ([facility]) Immature Granulocytes Absolute 0.11 0.00 - 0.20 10*3/uL 08/03/2024 2:22 PM EDT [facility] ([facility]) Blood Venous blood specimen / Unknown Venipuncture / Unknown 08/03/2024 12:33 PM EDT 08/03/2024 1:04 PM EDT Radha Campoverde PA-C LAB BLOOD ORDERABLES Areli l Result [facility] [address] [place], [place] [id number] * Blood culture (08/03/2024 12:33 PM EDT) Only the most recent of2 resultswithin the time period is included. Blood Culture No growth at 5 days TONJA 08/08/2024 2:01 PM EDT [facility] ([facility]) Blood Venous blood specimen / Unknown Venipuncture / Unknown 08/03/2024 12:33 PM EDT 08/03/2024 1:04 PM EDT Lesly Marcial CNP LAB MICROBIOLOGY - GENERAL ORDAmy JEONG Final Result [facility] [address] [place] [address] * (ABNORMAL) Lipid panel (08/03/2024 12:33 PM EDT) Triglycerides 165(H) <150 mg/dL 08/03/2024 1:58 PM EDT [facility] Comment: TRIGLYCERIDE REFERENCE RANGE: 20 YEARS AND OLDER CARDIOVASCULAR RISK LESS THAN 150 mg/dL LOW RISK 150 TO 199 mg/dL BORDERLINE RISK 200 mg/dL AND GREATER HIGH RISK Cholesterol 86(L) 120 - 200 mg/dL 08/03/2024 1:58 PM EDT [facility] ([facility]) LDL Calculated 30 0 - 160 mg/dL 08/03/2024 1:58 PM EDT [facility] ([facility]) HDL 23 23 - 92 mg/dL 08/03/2024 1:58 PM EDT [facility] ([facility]) Non HDL Cholesterol 63 08/03/2024 1:58 PM EDT [facility] ([facility]) Total VLDL-C 33 0 - 40 mg/dL 08/03/2024 1:58 PM EDT [facility] ([facility]) Cholesterol/HDL Ratio 3.7 mg/dL 08/03/2024 1:58 PM EDT [facility] ([facility]) Blood Venous blood specimen / Unknown Venipuncture / Unknown 08/03/2024 12:33 PM EDT 08/03/2024 1:04 PM EDT Stan Simms MD LAB BLOOD ORDERABLES Final Resu lt [facility] ([facility]) [address] [place] [address] * (ABNORMAL) Urinalysis microscopic with reflex culture (08/03/2024 9:43 AM EDT) RBC, Urine >20(A) None Seen, 0-2 /HPF 08/03/2024 10:22 AM EDT [facility] ([facility]) WBC, Urine 11-20(A) None Seen, 0-2 /HPF 08/03/2024 10:22 AM EDT [facility] ([facility]) Squamous Epithelial, Urine Occasional None Seen, Occasional , Few /LPF 08/03/2024 10:22 AM EDT [facility] ([facility]) Mucus, Urine Occasional None Seen, Occasional , Few /LPF 08/03/2024 10:22 AM T [facility] ([facility]) Urine Urine specimen obtained by clean catch procedure / Unknown Non-blood Collection / Unknown 08/03/2024 9:43 AM EDT 08/03/2024 9:48 AM EDT us Mark Anthony Frey MD LAB URINE ORDERABLES Final Resul t [facility] ([facility]) [address] [place], [place] [id number] * (ABNORMAL) Urinalysis with reflex culture (08/03/2024 9:43 AM EDT) Color, Urine Yellow Colorless, Yellow, Light-Yellow 08/03/2024 10:22 AM EDT [facility] ([facility]) Clarity, Urine Clear Clear 08/03/2024 10:22 AM EDT [facility] ([facility]) pH, Urine 5.5 5.0 - 8.0 pH 08/03/2024 10:22 AM EDT [facility] ([facility]) Leukocytes, Urine Moderate(A) Negative 08/03/2024 10:22 AM EDT [facility] ([facility]) Nitrite, Urine Negative Negative 08/03/2024 10:22 AM EDT [facility] ([facility]) Protein, Urine Negative Negative mg/dL 08/03/2024 10:22 AM EDT [facility] ([facility]) Glucose, Urine Normal Normal mg/dL 08/03/2024 10:22 AM EDT [facility] ([facility]) Bilirubin, Urine Negative Negative 08/03/2024 10:22 AM EDT [facility] ([facility]) Specific [place], Urine 1.030 1.010 - 1.030 08/03/2024 10:22 AM EDT [facility] ([facility]) Ketones, Urine Negative Negative mg/dL 08/03/2024 10:22 AM EDT [facility] ([facility]) Blood, Urine Large(A) Negative 08/03/2024 10:22 AM EDT [facility] ([facility]) Urobilinogen, Urine Normal Normal mg/dL 08/03/2024 10:22 AM T [facility] ([facility]) Urine Urine specimen obtained by clean catch procedure / Unknown Non-blood Collection / Unknown 08/03/2024 9:43 AM EDT 08/03/2024 9:48 AM EDT Mark Anthony Frey MD LAB URINE ORDERABLES Final Resul t [facility] ([facility]) [address] [place] [address] * Urine culture, routine (08/03/2024 9:43 AM EDT) Urine Culture No growth at 48 hours TONJA 08/05/2024 7:43 AM EDT [facility] ([facility]) Urine Urine specimen obtained by clean catch procedure / Unknown Non-blood Collection / Unknown 08/03/2024 9:43 AM EDT 08/03/2024 9:48 AM EDT Mark Anthony Frey MD LAB MICROBIOLOGY - GENERAL ORDER LEONILA Final Result Performing Organization Address City/[facility] Co de Phone Number [facility] ([facility]) [address] [place] [address] * FL modified barium swallow (08/02/2024 10:46 [...] of multiple consistencies were administered. Fluoroscopic time [id number] seconds. 11.4 mgy. Deep laryngeal penetration with [...] materials of multiple consistencieswere administered. Fluoroscopic time [id number] seconds. 11.4 mgy. Deep laryngeal penetration with [...] Narrative 08/02/2024 10:27 AM EDT [address] [facility] Heart Station [address] [place] [address] [phone] (fax) Echocardiogram-[facility] Name: REYNALDO BAKER Study Date: 08/02/2024 07:47 AM B/P: 104 mmHg/46 mmHg HR: 64 bpm Date of : 1940 [facility] No pericardial effusion. Procedure Staff Reading Group: [facility] Referring Physician: SHAILESH VINSON Buckle Attaching Machine Operator: Darleen Carmona, PAYAM, RVT, RN, BSN Ordering Physician: LIZZ MAYER Procedure Note Shira Cruz MD - 08/02/[address] [facility] Heart Station [address] [place] [address] [phone] (fax) Echocardiogram-[facility] Name: REYNALDO BAKER Study Date: 08/02/2024 07:47 AM B/P: 104 mmHg/46 mmHg HR: 64 bpm Date of : 1940 [facility] No pericardial effusion. Procedure Staff Reading Group: [facility] Referring Physician: SHAILESH VINSON Buckle Attaching Machine Operator: Darleen Carmona RDCS, RVT, RN, BSN Ordering Physician: LIZZ MAYER us Lizz Mayer CELL INSTALLER CV ECHO PROCEDURES Final Resu lt * (ABNORMAL) CBC (08/02/2024 4:29 AM EDT) Only the most recent of5 resultswithin the time period is included. Auto WBC 22.16(H) 4.00 - 10.60 10*3/uL 08/02/2024 5:48 AM EDT [facility] ([facility]) RBC 2.92(L) 4.20 - 5.70 10*6/uL 08/02/2024 5:48 AM EDT [facility] ([facility]) Hemoglobin 8.7(L) 13.0 - 17.0 g/dL 08/02/2024 5:48 AM EDT [facility] ([facility]) Hematocrit 27.1(L) 39.0 - 50.0 % 08/02/2024 5:48 AM EDT [facility] ([facility]) MCV 92.8 82.0 - 98.0 fL 08/02/2024 5:48 AM EDT [facility] ([facility]) MCH 29.8 27.0 - 33.0 pg 08/02/2024 5:48 AM EDT [facility] ([facility]) MCHC 32.1 32.0 - 35.0 g/dL 08/02/2024 5:48 AM EDT [facility] ([facility]) RDW 13.1 11.5 - 15.0 % 08/02/2024 5:48 AM EDT [facility] ([facility]) Platelets 195 150 - 400 10*3/uL 08/02/2024 5:48 AM EDT [facility] ([facility]) Blood Venous blood specimen / Unknown Arterial Line / Unknown 08/02/2024 4:29 AM EDT 08/02/2024 4:40 AM EDT us Lizz Mayer [facility] LAB BLOOD ORDERABLES Final Re sult Performing Organization Address City/[facility]/ZIP Co de Phone Number [facility] [address] [place] [address] * (ABNORMAL) POCT glucose meter (08/01/2024 5:02 PM EDT) Only the most recent of2 resultswithin the time period is included. Glucose POC 174(H) 70 - 105 mg/dL 08/01/2024 5:13 PM EDT [facility] ([facility]) Comment: Blood Capillary blood specimen / Unknown 08/01/2024 5:02 PM EDT 08/01/2024 5:13 PM EDT Narrative [facility] ([facility]) - 08/01/2024 5:13 PM EDT Waived Testing in the ED is performed under the ED CLIA certificate #[id number]. us Generic Provider Poct LAB BLOOD ORDERABLES Final Result [facility] [address] [place], [place] [id number] * (ABNORMAL) APTT (08/01/2024 5:00 PM EDT) aPTT 40.3(H) 25.0 - 35.0 Seconds 08/01/2024 5:36 PM EDT [facility] ([facility]) Comment:Clinical significanc e of the APTT is questionable in the presence of heparin. Blood Venous blood specimen / Unknown Arterial Line / Unknown 08/01/2024 5:00 PM EDT 08/01/2024 5:03 PM EDT us Hal Kirkpatrick [facility] LAB BLOOD ORDERABLES Fi nal Result [facility] ([facility]) [address] [place] [address] * (ABNORMAL) Protime-INR (08/01/2024 5:00 PM EDT) Protime 16.6(H) 12.3 - 14.8 Seconds 08/01/2024 5:36 PM EDT [facility] ([facility]) INR 1.35(H) 0.90 - 1.10 08/01/2024 5:36 PM EDT [facility] ([facility]) Comment: ACCCP RECOMMENDED INR [...] EDT 08/01/2024 5:03 PM EDT Hal Melgoza [employer] [facility] LAB BLOOD ORDERABLES Fi nal Result [facility] ([facility]) [address] [place] [address] * Phosphorus (08/01/2024 5:00 PM EDT) Phosphorus 3.5 2.5 - 5.0 mg/dL 08/01/2024 5:35 PM EDT [facility] ([facility]) Blood Venous blood specimen / Unknown Arterial Line / Unknown 08/01/2024 5:00 PM EDT 08/01/2024 5:06 PM EDT Ahl [employer] [facility] LAB BLOOD ORDERABLES Fi nal Result Performing Organization Address [facility] Co de Phone Number [facility] ([facility]) [address] [place] [address] * TAVR (08/01/2024 4:03 PM EDT) Anatomical [...] vein under ultrasound guidance. OPERATORS: Interventional Cardiology Range Mechanic: Kimani Spring MD Cardiac Surgery Range Mechanic: Mark Anthony Frey MD Relationship Banker Interventional Cardiology Range Mechanic: Abahy Knutson Interventional Fellow Fellow: Dr. Sander Ware METHODS: Procedure was explained to the patient with risks and benefits. he signed informed consent. he was brought to labor standards director in a fasting state. The procedure was performed in the cardiac labor standards director under general anesthesia. Both groin areas, and the right neck area were prepped and draped in usual fashion. Micropuncture technique and ultrasound guidance were used for access in the right common femoral artery and inner cannula angiography was performed followed by upsizing to a 6-Iraqi x 11 cm sheath. The same was done for the access in the right common femoral vein. A 5-Iraqi balloon-tipped pacemaker wire was advanced through the femoral vein sheath to the right ventricular apex and adequate capture was confirmed. Through the right common femoral sheath, an angled 6-Iraqi pigtail catheter was then advanced to the [...] in the common carotid artery and a 10-Iraqi x 11 cm sheath was placed. A 6-Iraqi AL1 diagnostic catheter was advanced via the carotid sheath, and using a straight stiff Glidewire, the aortic valve was crossed and the catheter was advanced in the left ventricular cavity, and using an exchange length J-wire, a 6-Iraqi angled pigtail catheter was advanced to make [...] the valve over the wire across the white mountain aortic valve, and under pacing at 120 [...] and removed outside of the body. 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 Procedure Staff Reading Group: [facility] Buckle Attaching Machine Operator: Divina Priest RDCS Ordering Physician: LIZZ MAYER Procedure Note Shira Cruz MD - 08/01/[address] [facility] Heart Station [address] [place] [address] [phone] (fax) Echocardiogram-[facility] Name: REYNALDO BAKER Study Date: 08/01/2024 10:44 AM B/P: 183 mmHg/71 mmHg HR: Date of : 1940 Location: [facility] [...] No pericardial effusion. Procedure Staff Reading Group: [facility] Buckle Attaching Machine Operator: Divina Priest RDCS Ordering Physician: LIZZ MAYER Lizz Mayer [facility] CV ECHO PROCEDURES Final Resu lt * (ABNORMAL) Arterial blood gas with ionized calcium (08/01/2024 1:52 PM EDT) pH, Arterial 7.46(H) 7.35 - 7.45 pH 08/01/2024 1:55 PM EDT [facility] RESPIRATORY THERAPY pCO2, Arterial 34(L) 35 - 48 mmHg 08/01/2024 1:55 PM EDT [facility] RESPIRATORY THERAPY pO2, Arterial 300(H) 83 - 100 mmHg 08/01/2024 1:55 PM EDT [facility] RESPIRATORY THERAPY HCO3, Arterial 24.2 21.0 - 28.0 mEq/L 08/01/2024 1:55 PM EDT [facility] RESPIRATORY THERAPY Calcium, Ion 1.19 1.15 - 1.33 mmol/L 08/01/2024 1:55 PM EDT [facility] RESPIRATORY THERAPY O2 Sat, Arterial 98.9(H) 94.0 - 98.0 % 08/01/2024 1:55 PM EDT [facility] RESPIRATORY THERAPY Base Excess, Arterial 0.8 -2.0 - 3.0 mmol/L 08/01/2024 1:55 PM EDT [facility] RESPIRATORY THERAPY Source Of Oxygen Vent 08/01/2024 1:55 PM EDT [facility] RESPIRATORY THERAPY Blood Arterial blood specimen / Unknown Arterial Puncture / Unknown 08/01/2024 1:52 PM EDT 08/01/2024 1:52 PM EDT Narrative [facility] RESPIRATORY THERAPY - 08/01/2024 1:55 PM EDT lab systems analyst us Bebeto Rangel MD LAB BLOOD ORDERABLES Final R esult [facility] RESPIRATORY THERAPY [address] [place] [address], * Type and screen (08/01/2024 1:49 PM EDT) ABO Grouping A 08/01/2024 2:54 PM EDT [facility] BLOOD BANK Rh Type POS 08/01/2024 2:54 PM EDT [facility] BLOOD [facility] Ab Scrn NEG 08/01/2024 2:54 PM EDT [facility] BLOOD [facility] Blood Venous blood specimen / Unknown Venipuncture / Unknown 08/01/2024 1:49 PM EDT 08/01/2024 1:49 PM EDT us Bebeto Rangel MD LAB BLOOD BANK TEST ORDERABL ES Final Result [facility] BLOOD BANK * AR AN ELECTIVE ENDOTRACHEAL AIRWAY (08/01/2024 1:29 PM EDT) Narrative Bebeto Rangel MD - 08/01/2024 1:29 PM EDT Regino Brewer MD 08/01/2024 1:43 PM Airway Date/Time: 08/01/2024 1:29 PM Urgency: elective Airway not difficult General Information and Staff Patient location during procedure: [place] Anesthesiologist: Bebeto Rangel MD Resident/FIELD EDUCATION DIRECTOR/CAA: Regino Brewer MD Performed: resident/FIELD EDUCATION DIRECTOR/CAA Indications and Patient Condition Indications for [...] Staffing Performed: resident/ATTILA/DEVIN Anesthesiologist: Bebeto Rangel MD Resident/FIELD EDUCATION DIRECTOR: Regino Brewer MD Performed by: Regino Brewer MD Authorized by: Bebeto Rangel MD us Bebeto Rangel MD ANESTHESIA ORDERABLES Final Result * CARDIAC DEVICE CHECK - REMOTE - LOOP RECORDER (ILR) (07/28/2024 9:56 AM EDT) Only the most recent of2 resultswithin the time period is included. us Jez Martin MD CV IMPLANTABLE CARDIAC DEVICE AR OCEDURES Final Result Performing Organization Address City/[facility] Co de Phone Number [facility] * Cardiac device check - Remote loop recorder (ILR) (07/18/2024 12:00 AM EDT) Anatomical Region Laterality Modality Other 07/18/2024 Jez Martin MD CV IMPLANTABLE CARDIAC DEVICE AR OCEDURES Final Result * (ABNORMAL) Hemoglobin and hematocrit, blood (06/29/2024 11:10 PM EDT) Only the most recent of6 resultswithin the time period is included. Hemoglobin 8.9(L) 13.0 - 17.0 g/dL 06/29/2024 11:57 PM EDT [facility] ([facility]) Hematocrit 27.7(L) 39.0 - 50.0 % 06/29/2024 11:57 PM EDT [facility] ([facility]) Blood Venous blood specimen / Unknown Arterial Line / Unknown 06/29/2024 11:10 PM EDT 06/29/2024 11:32 PM EDT us Mert Oglesby MD LAB BLOOD ORDERABLES Final Res ult [facility] ([facility]) [address] [place] [address] * Bronchoscopy (06/29/2024 4:09 PM EDT) Anatomical [...] - 212 ug/dL 06/29/2024 11:53 AM EDT [facility] ([facility]) TIBC 227(L) 250 - 450 ug/dL 06/29/2024 11:53 AM EDT [facility] ([facility]) Iron Saturation 18(L) 20 - 50 % 11:53 AM EDT [facility] ([facility]) UIBC 187.0 155.0 - 355.0 ug/dL 06/29/2024 11:53 AM EDT [facility] Blood Venous blood specimen / Unknown Arterial Line / Unknown 06/29/2024 11:06 AM EDT 06/29/2024 11:24 AM EDT Mert Oglesby MD LAB BLOOD ORDERABLES Final Res ult [facility] [address] [place] [address] * Transferrin (06/29/2024 11:06 AM EDT) Transferrin 195 168 - 348 mg/dL 06/29/2024 11:53 AM EDT [facility]) Blood Venous blood specimen / Unknown Arterial Line / Unknown 06/29/2024 11:06 AM EDT 06/29/2024 11:24 AM EDT Mert Oglesby MD LAB BLOOD ORDERABLES Final Res ult Performing Organization Address [facility]/ZIP Co de Phone Number [facility]) [address] [place] [id number] * Folate (06/29/2024 11:06 AM EDT) Folate 7.77 6.6 - 1,000 ng/mL 06/29/2024 12:18 PM EDT [facility]) Blood Venous blood specimen / Unknown Arterial Line / Unknown 06/29/2024 11:06 AM EDT 06/29/2024 11:24 AM EDT us Mert Oglesby MD LAB BLOOD ORDERABLES Final Res ult [facility] [address] [place] [address] * Ferritin (06/29/2024 11:06 AM EDT) Ferritin 168.0 24.0 - 336.0 ng/mL 06/29/2024 12:18 PM EDT [facility] ([facility]) Blood Venous blood specimen / Unknown Arterial Line / Unknown 06/29/2024 11:06 AM EDT 06/29/2024 11:24 AM EDT us Mert Oglesby MD LAB BLOOD ORDERABLES Final Res ult Performing Organization Address City/[facility]/ZIP Co de Phone Number [facility] ([facility]) [address] [place] [address] * Vitamin B12 (06/29/2024 11:06 AM EDT) Vitamin B-12 373 180 - 914 pg/mL 06/29/2024 12:18 PM EDT [facility] ([facility]) Comment: REFERENCE RANGES: 180-914 pg/mL Normal 145-179 pg/mL Indeterminate <145 pg/mL Deficient Blood Venous blood specimen / Unknown Arterial Line / Unknown 06/29/2024 11:06 AM EDT 06/29/2024 11:24 AM EDT us Mert Oglesby MD LAB BLOOD ORDERABLES Final Res ult Performing Organization Address City/[facility] Co de Phone Number [facility] ([facility]) [address] [place] [address] * PERC CORONARY INTERVENTION (06/27/2024 4:24 PM [...] informed consent. he was brought to the labor standards director in a fasting state. The left wrist area was prepped and draped in usual fashion. Micropuncture technique was used for access in the left radial artery. A 5-Iraqi x 11 cm sheath was placed. Verapamil was given through the sheath, and heparin was administered intravenously. Heparin was administered intravenously and therapeutic ACT was confirmed during the rest of the procedure. 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 [place] [address] [phone] (fax) Transesophageal Echocardiogram-[facility] Name: REYNALDO BAKER Study Date: 06/27/2024 10:06 AM B/P: 170 mmHg/89 mmHg HR: 64 bpm Date of : 1940 Location: [facility] Height: 66 in. Age: 84 year(s) Patient Room: [facility] [place] Weight: 136 lb. Gender: Male Patient Status: [...] (Opiates) 50 micrograms Procedure Staff Reading Group: [facility] Referring Physician: SHAILESH VINSON Buckle Attaching Machine Operator: JODI Ponce Ordering Physician: LIZZ MAYER Procedure Note Shira Cruz MD - 06/27/[address] Heart [facility] Vascular [facility] Heart Station [address] [facility] [place] [address] [phone] (fax) Transesophageal Echocardiogram-[facility] Name: REYNALDO BAKER Study Date: 06/27/2024 10:06 AM B/P: 170 mmHg/89 mmHg HR: 64 bpm Date of : 1940 Location: [facility] Height: 66 in. Age: 84 year(s) Patient Room: [facility] Weight: 136 lb. Gender: Male [...] (Opiates) 50 micrograms Procedure Staff Reading Group: [facility] Referring Physician: SHAILESH VINSON Buckle Attaching Machine Operator: Ngozi Onofre [facility] Ordering Physician: LIZZ MAYER us Lizz Mayer CELL INSTALLER CV ECHO PROCEDURES Final Resu lt * [...] root are obtained in anterior projection, no HEALTH/SAFETY JOB TITLES-CAU views. The annulus measures 29.9 x 23.3 [...] root are obtained in anterior projection, no HEALTH/SAFETY JOB TITLES-CAU views. The annulus measures 29.9 x 23.3 [...] Electronically signed: Mendoza Rodriguez MD. Lizz Mayer [facility] CT PROCEDURES Final Resul t * CTA [...] signed: Mendoza Rodriguez MD. Lizz Mayer CNP [facility] CT PROCEDURES Final Resul t from Last [...] 7:55 AM 10/13/2023 2:54 PM Care Teams Comparative Sociology Professor Relationship Specialty Start Date End Date Shailesh Vinson DO [address] [facility] [place] [address] PCP - General Family Medicine 08/04/23 Dr. Sheri Christiansen [address] [facility] [address] [place] [address] Ice Skating Teacher Cardiology 08/18/23
--- OUTSIDE RECORDS SUMMARY | 2024-09-02 09:47 | XMS_ITS | Clinical Summary ---
Author Organization [facility] Address [address] [place], [place] [id number] Care Team Providers Care Beam Carrier Hauler Pusher Name Role Phone Shailesh Vinson Primary Care Provider [phone] Allergies Active Allergy Reactions Criticality Noted Date [...] N ot on file 02/14/2020 Data from: [email or web address] Last address used for calculation [...] Influenza Vaccine (Season Ended) 2024 Insurance MEDICARE [place] [id number] [facility]IC Care Teams Beam Carrier Hauler Pusher Relationship Specialty Start Date End Date Shailesh Vinson DO PCP - General Internal Medicine 05/09/15
--- OUTSIDE RECORDS SUMMARY | 2024-09-02 09:47 | XMS_ITS | Patient Health Record ---
Author Organization [facility] pecialists [facility] Address [address] [place] [address] Care Team Providers Care Self Storage Manager Name Role Phone Shailesh Vinson DO Primary Care Provider Jami Berry Maria [place]enia Alfredo [phone] Reason For Referral No Information Encounters Encounter Location Date Provider Diagnosis [facility] Inpatient [address] [place] [address] 10/12/2023 Maria [place]enia Berry Neoplasm of uncert [...] End Date [facility] Medicare [place] [address] [id number] Reynaldo Polanco Self - patient is the insured [facility] [address] [address] [place] [address] [id number] PLAN G Reynaldo Polanco Self - patient is the insured
--- OUTSIDE RECORDS SUMMARY | 2024-09-02 09:47 | XMS_ITS | Clinical Summary ---
Author Organization [facility] Address [address] [place] [address] Care Team Providers Care Television Engineer Name Role Phone Shailesh Vinson DO Primary Care Provider [phone] Allergies Active Allergy Reactions Criticality Noted Date [...] 75 mg tabletIndication s:Coronary artery disease involving guid[place] coronary artery of guid[place] heart without angina pectoris,Status post insertion of [...] daily MiraLAX Coronary artery disease invo lving guid[place] coronary artery of guid[place] heart without angina pectoris 08/04/2024 Assessment & [...] post stenting Coronary artery disease invo lving guid[place] coronary artery of [place] heart with angina pectoris 06/20/2024 Assessment & [...] Department Care Team Description 09/01/2024 Results Follow-Up [facility] Station [address] [place] [address] Harika Rees CNP ECG 12 lead 08/31/2024 2:15 PM EDT Office Visit [facility] [address] [place] [address] Regino Dunn CNP Chest pain, unspecified type (Primary Dx); Severe aortic valve stenosis; S/P TAVR (transcatheter aortic valve replacement); RIVERA (dyspnea on exertion); Coronary artery disease involving guid[place]le coronary artery of guidiville heart without angina pectoris; PAF (paroxysmal atrial fibrillation) ([facility] Implantable loop recorder present; Primary hypertension 08/31/2024 2:14 PM EDT - 08/31/2024 11:59 PM EDT Hospital Encounter [facility] [address] [place] [address] Arrived Discharge Disposition: Home or Self Care () 08/31/2024 1:28 PM EDT - 08/31/2024 2:13 PM EDT Hospital Encounter [facility] [address] [place] [address] Nonrheumatic aortic valve stenosis Discharge Disposition: Home or Self Care () 08/31/2024 Orders Only [facility] [address] [place] [address] Harika Rees CNP Coronary artery disease involving guid[place]le coronary artery of guidiville heart without angina pectoris (Primary Dx); Paroxysmal atrial fibrillation (CMS/HCC) 08/15/2024 12:45 PM EDT Follow-Up [facility] at [facility] [address] [place] [address] Jez Martin MD S/P TAVR (transcatheter aortic valve replacement) (Primary Dx) 08/10/2024 3:20 PM EDT - 08/10/2024 11:59 PM EDT Hospital Encounter [facility] Heart [facility] [place] [facility] [address] [place] [address] S/P TAVR (transcatheter aortic valve replacement) Discharge Disposition: Home or Self Care (01) 08/10/2024 2:00 PM EDT Follow-Up [facility] Heart [facility] V[facility] [address] [place] [address] Lesly Marcial CNP Hematoma of neck, sequela (Primary Dx); S/P TAVR (transcatheter aortic valve replacement) 08/10/2024 1:40 PM EDT Follow-Up [facility] [address] [place] [address] Kimani Spring MD S/P TAVR (transcatheter aortic valve replacement) (Primary Dx); Primary hypertension; Coronary artery disease involving guidivil[place] coronary artery of guidivil[place] heart without angina pectoris; PAF (paroxysmal atrial fibrillation) (CMS/HCC); Status post insertion of drug eluting coronary artery stent; PAD (peripheral artery disease) 08/01/2024 1:15 PM EDT Anesthesia Event [facility] Lab [address] [place] [address] Kathi Lyons MD Uberoi, Ravindera, MD 08/01/2024 11:00 AM EDT - 08/01/2024 1:00 PM EDT Surgery [facility] Lab [address] [place] [address] Kimani Spring MD TAVR 08/01/2024 9:20 AM EDT - 08/06/2024 3:02 PM EDT Hospital Encounter [facility] [address] [place] [address] Kimani Spring MD Lee, Jai, MD Horani, Omar, MD Iqbal, Amna, MD Severe aortic valve stenosis (Primary Dx); Nonrheumatic aortic valve stenosis; S/P TAVR (transcatheter aortic valve replacement); Aortic stenosis, severe; Acute cystitis without hematuria Discharge Disposition: Home-Health Care Svc () 08/01/2024 9:16 AM EDT - 08/01/2024 9:19 AM EDT Hospital Encounter [facility] Station [address] [place] [address] Nonrheumatic aortic valve stenosis Discharge Disposition: Home or Self Care () 08/01/2024 Travel 08/01/[address] [address] Machelle Mann MA Paroxysmal atrial fibrillation (CMS/HCC) 07/27/2024 Orders Only [facility] Pre-Anesthesia Clinic [address] [address] Ag Hummel RN 07/26/2024 Orders Only [facility] [address] [place] [address] Lizz Mayer CNP Contrast media allergy 07/19/2024 5:15 PM EDT Ancillary Procedure [facility] [address] [place] [address] Awareness of heartbeats 07/18/2024 Orders Only [facility] [address] [place], [place] [address] [address] Jez Martin MD 07/13/2024 Travel 07/10/2024 9:45 AM EDT Office Visit [facility] [address] [place] [address] Kimani Spring MD Nonrheumatic aortic valve stenosis (Primary Dx); Coronary artery disease involving guid[place]le coronary artery of guidiville heart without angina pectoris; PAF (paroxysmal atrial fibrillation) (CMS/HCC); PAD (peripheral artery disease); Contrast media allergy; Status post insertion of drug eluting coronary artery stent; Chronic anemia 07/04/2024 Orders Only [facility] [address] [place] [address] Lizz Mayer CNP Nonrheumatic aortic valve stenosis (Primary Dx) 06/29/2024 3:52 PM EDT Anesthesia Event [facility] Main Operating Room [address] [place] [address] Kathi Lyons MD Brewer, Shawn, CAA 06/29/2024 Travel 06/27/2024 1:30 PM EDT - 06/27/2024 3:30 PM EDT Surgery [facility] Lab [address] [place] [address] Kimani Spring MD Percutaneous coronary intervention 06/27/2024 8:42 AM EDT - 06/30/2024 2:39 PM EDT Hospital Encounter [facility] [address] [place] [address] Kimani Spring MD Salahaldeen, Aya, MD Chang, Kyu Chul, MD Abrasion of trachea (Primary Dx); 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; Nonrheumatic aortic valve stenosis; Hemoptysis; Triple vessel coronary artery disease; Paroxysmal atrial fibrillation (CMS/HCC); Chronic anemia Discharge Disposition: Home or Self Care () 06/27/2024 Travel 06/20/2024 Orders Only [facility] [address] [place] [address] Lizz Mayer CNP 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 (Primary Dx); Nonrheumatic aortic valve stenosis 06/20/2024 Travel 06/20/2024 Orders Only [facility] Heart [facility] Vascular [place] Vascular Lab [address] [place] [address] Francisca Luciano RN Nonrheumatic aortic valve stenosis (Primary Dx) 06/19/2024 8:20 PM EDT Ancillary Procedure [facility] [address] [place] [address] Awareness of heartbeats 06/19/2024 Orders Only [facility] [address] [place] [address] Evy Muhammad MA 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 06/18/2024 Orders Only [facility] [address] [place] [address] Lizz Mayer CNP Nonrheumatic aortic valve stenosis (Primary Dx) 06/15/2024 Orders Only [facility] [address] [place] [address] Lizz Mayer CNP Nonrheumatic aortic valve stenosis (Primary Dx) 06/06/2024 12:23 PM EDT - 06/06/2024 11:59 PM EDT Hospital Encounter [facility] CT Imaging [address] [place], [place] [address] [address] Nonrheumatic aortic valve stenosis Discharge Disposition: Home or Self Care () 06/06/2024 12:22 PM EDT Hospital Encounter [facility] CT Imaging [address] [place] [address] Nonrheumatic aortic valve stenosis Discharge Disposition: Home [...] oz pur e alcohol) 4x week- vivian [facility] Utilities Answer Date Recorded In the past [...] any time in the past 12 m [facility], were you homeless or living in a assisted (including now)? No 08/02/2024 Hunger Vital Sign [...] 09/04/2024 11:15 AM EDT Follow-Up [facility] at [facility] [address] [place] [address] Kimani Spring MD [address] [facility] [place] [address] 09/19/2024 3:30 PM EDT Consult [facility] Pulmonary [address] [place] [address] Paul Mayen MD [address] [place], [place] [id number] Health Maintenance Due Date Last Done Comments [...] this topic Medical Devices Implanted Type Area Oxygen Equipment Aide Device Identifier Shelf Expiration Date Model / Serial / Lot Stent,Synerg y Mr 2.25 X 16 - [id number] Implanted:Qt y: 1 on 06/27/2024 by Kimani Spring MD at [facility] Drug Eluting Stent N/A: Coronary Jingshi [employer] [id number] 09/06/2025 [id number] / / [id number] Stent,Synerg y Mr 2.50 X 12 - [id number] Implanted:Qt y: 1 on 06/27/2024 by Kimani Spring MD at [facility] Drug Eluting Stent N/A: Coronary Beulah [employer] [id number] 08/01/2025 [id number] / / [id number] Monitor,Card iac,Lux,Dxii +[facility] - [id number] - [id number] Implanted:Qt y: 1 on 04/12/2024 by Jez Martin MD at [facility] Implantable Loop Recorder N/A: Chest Jingshi [employer] 08/02/2025 [id number] / [id number] / Valve,Aortic ,Evolutfm+,2 9mm - [id number] - [id number] Implanted:Qt y: 1 on 08/01/2024 by Kimani Spring MD at [facility] Prosthetic Valve N/A: Aorta [employer] [id number] 03/30/2026 [id number] -29 / [id number] / Procedures Procedure Name Priority Date/Time Associated [...] 2:20 PM EDT Coronary artery disease involving guid[place] coronary artery of guidiville heart without angina pectoris Paroxysmal atrial fibrillation ([facility]) ECG 12-LEAD Routine 08/10/2024 [...] AND SCREEN Routine 08/01/2024 1:49 PM EDT MO AN ELECTIVE ENDOTRACHEAL AIRWAY Routine 08/01/2024 1:29 [...] Sensitivity Troponin I (08/31/2024 3:23 PM EDT) [facility] High Sensitivity Troponin I 25(H) <20 ng/L 08/31/2024 4:10 PM EDT [facility] ([facility] Blood Venous blood specimen / Unknown Venipuncture / Unknown 08/31/2024 3:23 PM EDT 08/31/2024 3:27 PM EDT us Regino Dunn [facility] LAB BLOOD ORDERABLES Final Resul t [facility] ([facility]) [address], [place] [id number] * (ABNORMAL) CBC auto differential (08/31/2024 3:23 PM EDT) Only the most recent of5 resultswithin the time period is included. [facility] Auto WBC 11.33(H) 4.00 - 10.60 10*3/uL 08/31/2024 3:35 PM EDT [facility] ([facility] RBC 4.01(L) 4.20 - 5.70 10*6/uL 08/31/2024 3:35 PM EDT [facility] ([facility] Hemoglobin 11.9(L) 13.0 - 17.0 g/dL 08/31/2024 3:35 PM EDT [facility] ([facility] Hematocrit 37.9(L) 39.0 - 50.0 % 08/31/2024 3:35 PM EDT [facility] ([facility] MCV 94.5 82.0 - 98.0 fL 08/31/2024 3:35 PM EDT [facility] ([facility] MCH 29.7 27.0 - 33.0 pg 08/31/2024 3:35 PM EDT [facility] ([facility] MCHC 31.4(L) 32.0 - 35.0 g/dL 08/31/2024 3:35 PM EDT [facility] ([facility] RDW 13.4 11.5 - 15.0 % 08/31/2024 3:35 PM T [facility] ([facility] Neutrophils % 75.8(H) 40.0 - 72.0 % 08/31/2024 3:35 PM T [facility] ([facility] Lymphocytes % 14.0(L) 20.0 - 45.0 % 08/31/2024 3:35 PM EDT [facility] ([facility] Monocytes % 8.3 5.0 - 12.0 % 08/31/2024 3:35 PM EDT [facility] ([facility] Eosinophils % 1.1 0.0 - 6.0 % 08/31/2024 3:35 PM EDT [facility] ([facility] Basophils % 0.4 0.0 - 1.0 % 08/31/2024 3:35 PM EDT [facility] ([facility] Neutrophils Absolute 8.58(H) 1.60 - 7.60 10*3/uL 08/31/2024 3:35 PM EDT [facility] ([facility] Lymphocytes Absolute 1.59 1.20 - 4.00 10*3/uL 08/31/2024 3:35 PM EDT [facility] ([facility] Monocytes Absolute 0.94 0.10 - 1.00 10*3/uL 08/31/2024 3:35 PM EDT [facility] ([facility] Eosinophils Absolute 0.13 0.00 - 0.50 10*3/uL 08/31/2024 3:35 PM EDT [facility] ([facility] Basophils Absolute 0.05 0.00 - 0.20 10*3/uL 08/31/2024 3:35 PM EDT [facility] ([facility] Platelets 195 150 - 400 10*3/uL 08/31/2024 3:35 PM EDT [facility] ([facility] nRBC % 0.0 0 % 08/31/2024 3:35 PM EDT [facility] ([facility] Immature Granulocytes % 0.4 0.0 - 1.0 % 08/31/2024 3:35 PM EDT [facility] ([facility] Immature Granulocytes Absolute 0.04 0.00 - 0.20 10*3/uL 08/31/2024 3:35 PM EDT [facility] ([facility] Blood Venous blood specimen / Unknown Venipuncture / Unknown 08/31/2024 3:23 PM EDT 08/31/2024 3:27 PM EDT Lizz Mayer [facility] BLOOD ORDERABLES Final Re sult [facility] ([facility] [address] [place] [address] * (ABNORMAL) Basic metabolic panel (08/31/2024 3:23 PM EDT) Only the most recent of9 resultswithin the time period is included. Sodium 138 136 - 145 mmol/L 08/31/2024 4:10 PM EDT [facility] ([facility] Potassium 4.4 3.5 - 5.1 mmol/L 08/31/2024 4:10 PM EDT [facility] ([facility] Chloride 108(H) 98 - 107 mmol/L 08/31/2024 4:10 PM EDT [facility] ([facility] CO2 21 21 - 31 mmol/L 08/31/2024 4:10 PM EDT [facility] ([facility] BUN 19 7 - 25 mg/dL 08/31/2024 4:10 PM EDT [facility] ([facility] Creatinine 0.79 0.70 - 1.30 mg/dL 08/31/2024 4:10 PM EDT [facility] ([facility] Glucose 106(H) 70 - 100 mg/dL 08/31/2024 4:10 PM EDT [facility] ([facility] Calcium 8.9 8.6 - 10.3 mg/dL 08/31/2024 4:10 PM EDT [facility] ([facility] Anion Gap 13 7 - 20 mmol/L 08/31/2024 4:10 PM EDT [facility] ([facility] eGFR 88.7 >60.0 mL/min/1. 73m*2 08/31/2024 4:10 PM EDT [facility] ([facility] Comment:[facility] s estimated glomerular filtration rate (eGFR) [...] BUN/Creatinine Ratio 24.1 08/07 4:10 PM EDT [facility] ([facility] Blood Venous blood specimen / Unknown Venipuncture / Unknown 08/31/2024 3:23 PM EDT 08/31/2024 3:27 PM EDT us Regino Dunn [facility] BLOOD ORDERABLES Final Resul t [facility] ([facility])) [address] [place] [address] * COMPLETE ECHO (TTE) W/ IMAGING AGENT (08/31/2024 2:29 PM EDT) Anatomical Region Laterality Modality Other 08/31/2024 1:34 PM EDT Narrative 08/31/2024 2:48 PM EDT 1 1 [facility] Heart Station [address] [place] [address] [phone] (fax) Echocardiogram-[facility] Name: REYNALDO BAKER Study Date: 08/31/2024 01:34 PM B/P: / HR: Date of : 1940 Location: [facility] Height: 66 in. Age: 84 year(s) Patient [...] No pericardial effusion. Procedure Staff Reading Group: [facility] Floorworker Distributor: Timur Grijalva RDCS Ordering Physician: LIZZ MAYER Procedure Note Shira Cruz MD - 08/31/2024 1 1 [facility] Heart Station [address] [place] [address] [phone] (fax) Echocardiogram-[facility] Name: REYNALDO BAKER Study Date: 08/31/2024 01:34 PM B/P: / HR: Date of : 1940 Location: [facility] Height: 66 in. Age: 84 year(s) Patient [...] No pericardial effusion. Procedure Staff Reading Group: [facility] Floorworker Distributor: Tmiur Grijalva RDCS Ordering Physician: LIZZ MAYER Lizz Mayer [facility] CV ECHO PROCEDURES Final Resu lt * ECG 12 lead (08/31/2024 2:20 PM EDT) Only the most recent of6 resultswithin the time period is included. Ventricular Rate 90 BPM GE MUSE QRS DURATION 138 ms GE MUSE QT Interval 408 ms GE MUSE QTC CALCULATION(BAZE TT) 499 ms GE MUSE R-Regina 57 degrees GE MUSE T Wave Regina 39 degrees GE MUSE 08/31/2024 2:17 PM [...] (2) on 08/31/2024 2:27:23 PM Harika Rees [facility] ECG ORDERABLES Final Result GE MUSE * (ABNORMAL) Magnesium (08/06/2024 3:42 AM EDT) Only the most recent of4 resultswithin the time period is included. Magnesium 1.7(L) 1.9 - 2.7 mg/dL 08/06/2024 4:46 AM EDT [facility] ([facility]) Blood Venous blood specimen / Unknown Venipuncture / Unknown 08/06/2024 3:42 AM EDT 08/06/2024 4:22 AM EDT us Isa Camarillo MD LAB BLOOD ORDERABLES Final Resul t [facility]) [address] [place] [id number] * Occult blood x 1, stool (08/05/2024 8:23 PM EDT) Fecal Occult Bld Negative Negative, None Detected 08/05/2024 8:54 PM EDT [facility]) Stool Rectal contents / Unknown Non-blood Collection / Unknown 08/05/2024 8:23 PM EDT 08/05/2024 8:27 PM EDT us Isa Camarillo MD LAB BODY FLUIDS AND STOOLS ORDER LEONILA Final Result Performing Organization Address City/[facility]/ZIP Co de Phone Number [facility]) [address] [place] [phone] * Prepare RBC (08/05/2024 8:30 AM EDT) Only the most recent of2 resultswithin the time period is included. PRODUCT CODE [id number] [facility] BL OOD BANK Unit Number [id number] [facility] Unit ABO A [facility] BLOOD [facility] Unit Rh POS [facility] Dispense Status RE [facility] Blood Expiration Date [id number] [facility] Product Blood Type 6200 [facility] BLOOD [facility] Unit Volume 300 ML [facility] BLO OD BANK PRODUCT CODE [id number] [facility] BL OOD [facility] Unit Number [id number] [facility] B[facility]OD [facility] Unit ABO A [facility] BLOOD [facility] Unit Rh POS [facility] BLOOD [facility] Dispense Status RE [facility] Blood Expiration Date [id number] [facility] BLOOD [facility] Product Blood Type 6200 [facility] BLOOD [facility] us Regino Brewer MD BLOOD BANK PRODUCT ORDERABLES Fi nal Result [facility] B[facility]OD [facility] * Lavender Top (08/05/2024 3:53 AM EDT) Only the most recent of2 resultswithin the time period is included. Extra Tube Hold for add-ons. 08/05/2024 6:01 AM EDT [facility] ([facility] Comment:Auto resulted. Blood Venous blood specimen / Unknown 08/05/2024 3:53 AM EDT 08/05/2024 4:14 AM EDT us Isa Camarillo MD LAB BLOOD ORDERABLES Final Resul t [facility] ([facility] [address] [place] [address] * XR chest 1 view (08/04/2024 6:35 [...] - 1.0 % 08/03/2024 2:22 PM EDT [facility] ([facility] Neutrophils Absolute 11.2(H) 1.6 - 7.6 10*3/uL 08/03/2024 2:22 PM EDT [facility] ([facility] Lymphocytes Absolute 1.06(L) 1.20 - 4.00 10*3/uL 08/03/2024 2:22 PM EDT [facility] ([facility] Monocytes Absolute 1.68(H) 0.10 - 1.00 10*3/uL 08/03/2024 2:22 PM EDT [facility] ([facility])) Eosinophils Absolute 0.00 0.00 - 0.50 10*3/uL 08/03/2024 2:22 PM EDT [facility] ([facility])) Basophils Absolute 0.01 0.00 - 0.20 10*3/uL 08/03/2024 2:22 PM EDT [facility] ([facility])) Neutrophils % 79.7(H) 40.0 - 72.0 % 08/03/2024 2:22 PM EDT [facility] ([facility])) Lymphocytes % 7.5(L) 20.0 - 45.0 % 08/03/2024 2:22 PM EDT [facility] ([facility])) Monocytes % 11.9 5.0 - 12.0 % 08/03/2024 2:22 PM EDT [facility] ([facility])) Eosinophils % 0.0 0.0 - 6.0 % 08/03/2024 2:22 PM EDT [facility] ([facility])) Basophils % 0.1 0.0 - 1.0 % 08/03/2024 2:22 PM EDT [facility] ([facility] Immature Granulocytes Absolute 0.11 0.00 - 0.20 10*3/uL 08/03/2024 2:22 PM EDT [facility] ([facility] Blood Venous blood specimen / Unknown Venipuncture / Unknown 08/03/2024 12:33 PM EDT 08/03/2024 1:04 PM EDT us Radha Campoverde PA-C LAB BLOOD ORDERABLES Areli kevin Result [facility] [facility])) [address] [place] [address] * Blood culture (08/03/2024 12:33 PM EDT) Only the most recent of2 resultswithin the time period is included. Blood Culture No growth at 5 days TONJA 08/08/2024 2:01 PM EDT [facility] ([facility] Blood Venous blood specimen / Unknown Venipuncture / Unknown 08/03/2024 12:33 PM EDT 08/03/2024 1:04 PM EDT Lesly Marcial THEOLOGY TEACHER LAB MICROBIOLOGY - GENERAL ORDE JEAN-PAUL Final Result Performing Organization Address City/State/[facility] Co de Phone Number [facility] ([facility] [address] [place] [address] * (ABNORMAL) Lipid panel (08/03/2024 12:33 PM EDT) Triglycerides 165(H) <150 mg/dL 08/03/2024 1:58 PM EDT [facility] ([facility] Comment: TRIGLYCERIDE REFERENCE RANGE: 20 YEARS AND OLDER CARDIOVASCULAR RISK LESS THAN 150 mg/dL LOW RISK 150 TO 199 mg/dL BORDERLINE RISK 200 mg/dL AND GREATER HIGH RISK Cholesterol 86(L) 120 - 200 mg/dL 08/03/2024 1:58 PM EDT [facility] ([facility] LDL Calculated 30 0 - 160 mg/dL 08/03/2024 1:58 PM EDT [facility] ([facility] HDL 23 23 - 92 mg/dL 08/03/2024 1:58 PM EDT [facility] ([facility] Non HDL Cholesterol 63 08/03/2024 1:58 PM EDT [facility] ([facility] Total VLDL-C 33 0 - 40 mg/dL 08/03/2024 1:58 PM EDT [facility] ([facility] Cholesterol/HDL Ratio 3.7 mg/dL 08/03/2024 1:58 PM EDT [facility] ([facility] Blood Venous blood specimen / Unknown Venipuncture / Unknown 08/03/2024 12:33 PM EDT 08/03/2024 1:04 PM EDT Stan Simms MD LAB BLOOD ORDERABLES Final Resu lt Performing Organization Address City/[facility]/ZIP Co de Phone Number [facility] ([facility])) [address] [place] [address] * (ABNORMAL) Urinalysis microscopic with reflex culture (08/03/2024 9:43 AM EDT) RBC, Urine >20(A) None Seen, 0-2 /HPF 08/03/2024 10:22 AM EDT [facility] ([facility] WBC, Urine 11-20(A) None Seen, 0-2 /HPF 08/03/2024 10:22 AM EDT [facility] ([facility] Squamous Epithelial, Urine Occasional None Seen, Occasional , Few /LPF 08/03/2024 10:22 AM EDT [facility] ([facility] Mucus, Urine Occasional None Seen, Occasional , Few /LPF 08/03/2024 10:22 AM EDT [facility] ([facility] Urine Urine specimen obtained by clean catch procedure / Unknown Non-blood Collection / Unknown 08/03/2024 9:43 AM EDT 08/03/2024 9:48 AM EDT us Mark Anthony Frey MD LAB URINE ORDERABLES Final Resul t Performing Organization Address [facility]/ZIP Co de Phone Number [facility] ([facility])) [address] [place], [place] [id number] * (ABNORMAL) Urinalysis with reflex culture (08/03/2024 9:43 AM EDT) Color, Urine Yellow Colorless, Yellow, Light-Yellow 08/03/2024 10:22 AM EDT [facility] ([facility] Clarity, Urine Clear Clear 08/03/2024 10:22 AM EDT [facility] ([facility] pH, Urine 5.5 5.0 - 8.0 pH 08/03/2024 10:22 AM EDT [facility] ([facility] Leukocytes, Urine Moderate(A) Negative 08/03/2024 10:22 AM EDT [facility] ([facility] Nitrite, Urine Negative Negative 08/03/2024 10:22 AM EDT [facility] ([facility] Protein, Urine Negative Negative mg/dL 08/03/2024 10:22 AM EDT [facility] ([facility] Glucose, Urine Normal Normal mg/dL 08/03/2024 10:22 AM EDT [facility] ([facility] Bilirubin, Urine Negative Negative 08/03/2024 10:22 AM EDT [facility] ([facility] Specific Amma, Urine 1.030 1.010 - 1.030 08/03/2024 10:22 AM EDT [facility] ([facility])) Ketones, Urine Negative Negative mg/dL 08/03/2024 10:22 AM EDT [facility] ([facility] Blood, Urine Large(A) Negative 08/03/2024 10:22 AM EDT [facility] ([facility] Urobilinogen, Urine Normal Normal mg/dL 08/03/2024 10:22 AM EDT [facility] ([facility] Urine Urine specimen obtained by clean catch procedure / Unknown Non-blood Collection / Unknown 08/03/2024 9:43 AM EDT 08/03/2024 9:48 AM EDT Mark Anthony Frey MD LAB URINE ORDERABLES Final Resul t [facility]) [address] [place], [place] [id number] * Urine culture, routine (08/03/2024 9:43 AM EDT) Urine Culture No growth at 48 hours TONJA 08/05/2024 7:43 AM EDT [facility] ([facility] Urine Urine specimen obtained by clean catch procedure / Unknown Non-blood Collection / Unknown 08/03/2024 9:43 AM EDT 08/03/2024 9:48 AM EDT Mark Anthony Frey MD LAB MICROBIOLOGY - GENERAL ORDER LEONILA Final Result [facility]) [address] [place], [place] [id number] * FL modified barium swallow (08/02/2024 10:46 [...] of multiple consistencies were administered. Fluoroscopic time [id number] seconds. 11.4 mgy. Deep laryngeal penetration with [...] materials of multiple consistencieswere administered. Fluoroscopic time qsw791 seconds. 11.4 mgy. Deep laryngeal penetration with [...] Narrative 08/02/2024 10:27 AM EDT 1 [facility] Heart Station [address] [place] [address] [phone] (fax) Echocardiogram-[facility] Name: REYNALDO BAKER Study Date: 08/02/2024 07:47 AM B/P: 104 mmHg/46 mmHg HR: 64 bpm Date of : 1940 Location: [facility] Height: 66 in. Age: 84 year(s) Patient [...] No pericardial effusion. Procedure Staff Reading Group: [facility] Referring Physician: SHAILESH VINSON Floorworker Distributor: Darleen Carmona RDCS, RVT, RN, BSN Ordering Physician: LIZZ MAYER Procedure Note Shira Cruz MD - 08/02/2024 1 1 [facility] Heart Station [address] [place] [address] [phone] (fax) Echocardiogram-[facility] Name: REYNALDO BAKER Study Date: 08/02/2024 07:47 AM B/P: 104 mmHg/46 mmHg HR: 64 bpm Date of : 1940 Location: [facility] Height: 66 in. Age: 84 year(s) Patient [...] No pericardial effusion. Procedure Staff Reading Group: [facility] Referring Physician: SHAILESH VINSON Floorworker Distributor: Darleen Carmona, PAYAM, RVT, RN, BSN Ordering Physician: LIZZ MAYER us Lizz Mayer THEOLOGY TEACHER CV ECHO PROCEDURES Final Resu lt * (ABNORMAL) CBC (08/02/2024 4:29 AM EDT) Only the most recent of5 resultswithin the time period is included. Auto WBC 22.16(H) 4.00 - 10.60 10*3/uL 08/02/2024 5:48 AM EDT [facility] ([facility] RBC 2.92(L) 4.20 - 5.70 10*6/uL 08/02/2024 5:48 AM EDT [facility] ([facility] Hemoglobin 8.7(L) 13.0 - 17.0 g/dL 08/02/2024 5:48 AM EDT [facility] ([facility])) Hematocrit 27.1(L) 39.0 - 50.0 % 08/02/2024 5:48 AM EDT [facility] ([facility])) MCV 92.8 82.0 - 98.0 fL 08/02/2024 5:48 AM EDT [facility] ([facility])) MCH 29.8 27.0 - 33.0 pg 08/02/2024 5:48 AM EDT [facility] ([facility])) MCHC 32.1 32.0 - 35.0 g/dL 08/02/2024 5:48 AM EDT [facility] ([facility])) RDW 13.1 11.5 - 15.0 % 08/02/2024 5:48 AM EDT [facility] ([facility])) Platelets 195 150 - 400 10*3/uL 08/02/2024 5:48 AM EDT [facility] ([facility])) Blood Venous blood specimen / Unknown Arterial Line / Unknown 08/02/2024 4:29 AM EDT 08/02/2024 4:40 AM EDT us 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 Glucose POC 174(H) 70 - 105 mg/dL 08/01/2024 5:13 PM EDT [facility] ([facility] Comment:[id number] Blood Capillary blood specimen / Unknown 08/01/2024 5:02 PM EDT 08/01/2024 5:13 PM EDT Narrative [facility] ([facility] - 08/01/2024 5:13 PM EDT Waived Testing in the ED is performed under the ED CLIA certificate #[id number]. us Generic Provider Poct LAB BLOOD ORDERABLES Final Result Performing Organization Address [facility]/ZIP Co de Phone Number [facility]) [address] [place] [address] * (ABNORMAL) APTT (08/01/2024 5:00 PM EDT) aPTT 40.3(H) 25.0 - 35.0 Seconds 08/01/2024 5:36 PM EDT [facility] ([facility])) Comment:Clinical significanc e of the APTT is questionable in the presence of heparin. Blood Venous blood specimen / Unknown Arterial Line / Unknown 08/01/2024 5:00 PM EDT 08/01/2024 5:03 PM EDT us Hal Kirkpatrick THEOLOGY TEACHER LAB BLOOD ORDERABLES Fi nal Result [facility]) [address] [place] [address] * (ABNORMAL) Protime-INR (08/01/2024 5:00 PM EDT) Protime 16.6(H) 12.3 - 14.8 Seconds 08/01/2024 5:36 PM EDT [facility] ([facility])) INR 1.35(H) 0.90 - 1.10 08/01/2024 5:36 PM EDT [facility] ([facility]) Comment: ACC RECOMMENDED INR FOR WARFARIN [...] 08/01/2024 5:03 PM EDT us Hal Kirkpatrick [facility] LAB BLOOD ORDERABLES Fi nal Result [facility] Mat[facility]) [address] [place], [place] [id number] * Phosphorus (08/01/2024 5:00 PM EDT) Phosphorus 3.5 2.5 - 5.0 mg/dL 08/01/2024 5:35 PM EDT [facility] ([facility]) Blood Venous blood specimen / Unknown Arterial Line / Unknown 08/01/2024 5:00 PM EDT 08/01/2024 5:06 PM EDT Hal Alexandercharles THEOLOGY TEACHER LAB BLOOD ORDERABLES Fi nal Result [facility] ([facility]) [address] [place], [place] [id number] * TAVR (08/01/2024 4:03 PM EDT) Anatomical [...] vein under ultrasound guidance. OPERATORS: Interventional Cardiology Manager Flight: Kimani Spring MD Cardiac Surgery Manager Flight: Mark Anthony Frey MD Php Programmer Interventional Cardiology Manager Flight: Abhay Knutson Interventional Fellow Fellow: Dr. Sander Ware METHODS: Procedure was explained to the patient with risks and benefits. he signed informed consent. he was brought to label press operator in a fasting state. The procedure was performed in the cardiac label press operator under general anesthesia. Both groin areas, and the right neck area were prepped and draped in usual fashion. Micropuncture technique and ultrasound guidance were used for access in the right common femoral artery and inner cannula angiography was performed followed by upsizing to a 6-Kenyan x 11 cm sheath. The same was done for the access in the right common femoral vein. A 5-Kenyan balloon-tipped pacemaker wire was advanced through the femoral vein sheath to the right ventricular apex and adequate capture was confirmed. Through the right common femoral sheath, an angled 6-Kenyan pigtail catheter was then advanced to the [...] in the common carotid artery and a 10-Kenyan x 11 cm sheath was placed. A 6-Kenyan AL1 diagnostic catheter was advanced via the carotid sheath, and using a straight stiff Glidewire, the aortic valve was crossed and the catheter was advanced in the left ventricular cavity, and using an exchange length J-wire, a 6-Kenyan angled pigtail catheter was advanced to make [...] the valve over the wire across the guidiville aortic valve, and under pacing at 120 [...] and removed outside of the body. The 14-Kenyan access sheath was placed across the carotid access and a 6-Kenyan angled pigtail catheter was advanced across the [...] of5 resultswithin the time period is included. [facility] POCT ACT 137 82 - 152 seconds QC Pass/Fail Passed QC LOT # [id number] QC Expiration Date 73,125 Blood Venous blood specimen / Unknown 08/01/2024 3:49 PM EDT Narrative Scotty Ji MT - 08/07/2024 8:06 AM EDT Qc lot [id number]; desizing machine operator [id number] Kimani Spring MD POINT OF CARE TEST ENTER/KARTIK T ORDERABLES Final Result * LIMITED ECHOCARDIOGRAM (TTE) W/ LTD DOPPLER AND COLOR FLOW (08/01/2024 3:33 PM EDT) Anatomical Region Laterality Modality Other 08/01/2024 10:4 4 AM EDT Narrative 08/01/2024 5:24 PM EDT 1 1 [facility] Heart Station [address] [place] [address] [phone] (fax) Echocardiogram-[facility] Name: REYNALDO BAKER Study Date: 08/01/2024 10:44 AM B/P: 183 mmHg/71 mmHg HR: Date of : 1940 Location: [facility] Height: 66 in. Age: 84 year(s) Patient [...] No pericardial effusion. Procedure Staff Reading Group: [facility] Floorworker Distributor: Divina Priest RDCS Ordering Physician: LIZZ MAYER Procedure Note Shira Cruz MD - 08/01/2024 1 1 [facility] Heart Station [address] [facility] [place] [address] [phone] (fax) Echocardiogram-[facility] Name: REYNALDO BAKER Study Date: 08/01/2024 10:44 AM B/P: 183 mmHg/71 mmHg HR: Date of : 1940 Location: [facility] Height: 66 in. Age: 84 year(s) Patient [...] No pericardial effusion. Procedure Staff Reading Group: [facility] Floorworker Distributor: Divina Priest RDCS Ordering Physician: LIZZ MAYER us Lizz Mayer THEOLOGY TEACHER CV ECHO PROCEDURES Final Resu lt * (ABNORMAL) Arterial blood gas with ionized calcium (08/01/2024 1:52 PM EDT) pH, Arterial 7.46(H) 7.35 - 7.45 pH 08/01/2024 1:55 PM EDT [facility] RESPIRATORY THERAPY pCO2, Arterial 34(L) 35 - 48 mmHg 08/01/2024 1:55 PM EDT [facility] RESPIRATORY [facility] pO2, Arterial 300(H) 83 - 100 mmHg 08/01/2024 1:55 PM EDT [facility] RESPIRATORY THERAPY HCO3, Arterial 24.2 21.0 - 28.0 mEq/L 08/01/2024 1:55 PM EDT [facility] RESPIRATORY [facility] Calcium, Ion 1.19 1.15 - 1.33 mmol/L 08/01/2024 1:55 PM EDT [facility] RESPIRATORY [facility] O2 Sat, Arterial 98.9(H) 94.0 - 98.0 % 08/01/2024 1:55 PM EDT [facility] RESPIRATORY [facility] Base Excess, Arterial 0.8 -2.0 - 3.0 mmol/L 08/01/2024 1:55 PM EDT [facility] RESPIRATORY THERAPY Source Of Oxygen Vent 08/01/2024 1:55 PM EDT [facility] RES[facility]IRATORY THERAPY Blood Arterial blood specimen / Unknown Arterial Puncture / Unknown 08/01/2024 1:52 PM EDT 08/01/2024 1:52 PM EDT Narrative [facility]IR[facility]ORY [facility]ERAP[facility] - 08/01/2024 1:55 PM EDT 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 Bebeto Rangel MD LAB BLOOD ORDERABLES Final R esult [facility] RESPIRATORY THERAPY [address] [address], [place] * Type and screen (08/01/2024 1:49 PM EDT) ABO Grouping A 08/01/2024 2:54 PM EDT [facility] Rh Type POS 08/01/2024 2:54 PM EDT [facility] Ab Scrn NEG 08/01/2024 2:54 PM EDT [facility] Blood Venous blood specimen / Unknown Venipuncture / Unknown 08/01/2024 1:49 PM EDT 08/01/2024 1:49 PM EDT Bebeto Rangel MD LAB BLOOD BANK TEST ORDERABL ES Final Result [facility] * MO AN ELECTIVE ENDOTRACHEAL AIRWAY (08/01/2024 1:29 PM EDT) Bebeto De La Paz MD - 08/01/2024 1:29 PM EDT Regino Brewer MD 08/01/2024 1:43 PM Airway Date/Time: 08/01/2024 1:29 PM Urgency: elective Airway not difficult General Information and Staff Patient location during procedure: [place] Anesthesiologist: Bebeto Rangel MD Resident/PORTRAIT ARTIST/CAA: Regino Brewer MD Performed: resident/PORTRAIT ARTIST/CAA Indications and Patient Condition Indications for airway [...] or Ultrasound probe cover. VSS. Staffing Performed: resident/PORTRAIT ARTIST/CAA Anesthesiologist: Bebeto Rangel MD Resident/PORTRAIT ARTIST: Regino Brewer MD Performed by: Regino Brewer MD Authorized by: Bebeto Rangel MD Bebeto Rangel MD ANESTHESIA ORDERABLES Final Result * CARDIAC DEVICE CHECK - REMOTE - LOOP RECORDER (ILR) (07/28/2024 9:56 AM EDT) Only the most recent of2 resultswithin the time period is included. Jez Martin MD CV IMPLANTABLE CARDIAC DEVICE MO OCEDURES Final Result [facility] * Cardiac device check - Remote loop recorder (ILR) (07/18/2024 12:00 AM EDT) Anatomical Region Laterality Modality Other 07/18/2024 Jez Martin MD CV IMPLANTABLE CARDIAC DEVICE MO OCEDURES Final Result * (ABNORMAL) Hemoglobin and hematocrit, blood (06/29/2024 11:10 PM EDT) Only the most recent of6 resultswithin the time period is included. Hemoglobin 8.9(L) 13.0 - 17.0 g/dL 06/29/2024 11:57 PM EDT [facility] ([facility]) Hematocrit 27.7(L) 39.0 - 50.0 % 06/29/2024 11:57 PM EDT [facility] ([facility]) Blood Venous blood specimen / Unknown Arterial Line / Unknown 06/29/2024 11:10 PM EDT 06/29/2024 11:32 PM EDT us Mert Oglesby MD LAB BLOOD ORDERABLES Final Res ult [facility] ([facility]) [address] [place] [address] * Bronchoscopy (06/29/2024 4:09 PM EDT) Anatomical [...] - 212 ug/dL 06/29/2024 11:53 AM EDT [facility] ([facility] TIBC 227(L) 250 - 450 ug/dL 06/29/2024 11:53 AM EDT [facility] ([facility] Iron Saturation 18(L) 20 - 50 % 11:53 AM EDT [facility] ([facility] UIBC 187.0 155.0 - 355.0 ug/dL 06/29/2024 11:53 AM EDT [facility] ([facility] Blood Venous blood specimen / Unknown Arterial Line / Unknown 06/29/2024 11:06 AM EDT 06/29/2024 11:24 AM EDT Mert Oglseby MD LAB BLOOD ORDERABLES Final Res ult [facility] ([facility])) [address] [place] [address] * Transferrin (06/29/2024 11:06 AM EDT) Transferrin 195 168 - 348 mg/dL 06/29/2024 11:53 AM EDT [facility] ([facility] Blood Venous blood specimen / Unknown Arterial Line / Unknown 06/29/2024 11:06 AM EDT 06/29/2024 11:24 AM EDT Mert Oglesby MD LAB BLOOD ORDERABLES Final Res ult [facility]) [address] [place] [address] * Folate (06/29/2024 11:06 AM EDT) Folate 7.77 6.6 - 1,000 ng/mL 06/29/2024 12:18 PM EDT [facility] ([facility] Blood Venous blood specimen / Unknown Arterial Line / Unknown 06/29/2024 11:06 AM EDT 06/29/2024 11:24 AM EDT Mert Oglesby MD LAB BLOOD ORDERABLES Final Res ult Performing Organization Address City/[facility]/ZIP Co de Phone Number [facility]) [address] [place] [address] * Ferritin (06/29/2024 11:06 AM EDT) Ferritin 168.0 24.0 - 336.0 ng/mL 06/29/2024 12:18 PM EDT [facility]) Blood Venous blood specimen / Unknown Arterial Line / Unknown 06/29/2024 11:06 AM EDT 06/29/2024 11:24 AM EDT Mert Oglesby MD LAB BLOOD ORDERABLES Final Res ult [facility]) [address] [place] [address] * Vitamin B12 (06/29/2024 11:06 AM EDT) Vitamin B-12 373 180 - 914 pg/mL 06/29/2024 12:18 PM EDT [facility]) Comment: REFERENCE RANGES: 180-914 pg/mL Normal 145-179 pg/mL Indeterminate <145 pg/mL Deficient Blood Venous blood specimen / Unknown Arterial Line / Unknown 06/29/2024 11:06 AM EDT 06/29/2024 11:24 AM EDT us Mert Oglesby MD LAB BLOOD ORDERABLES Final Res ult [facility] ([facility]) [address] [place] [address] * PERC CORONARY INTERVENTION (06/27/2024 4:24 PM [...] informed consent. he was brought to the label press operator in a fasting state. The left wrist area was prepped and draped in usual fashion. Micropuncture technique was used for access in the left radial artery. A 5-Kenyan x 11 cm sheath was placed. Verapamil was given through the sheath, and heparin was administered intravenously. Heparin was administered intravenously and therapeutic ACT was confirmed during the rest of the procedure. 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 Age: 84 year(s) Patient Room: [facility] VASCULAR POOL Weight: 136 lb. Gender: [...] (Opiates) 50 micrograms Procedure Staff Reading Group: [facility] Referring Physician: SHAILESH VINSON Floorworker Distributor: JODI Ponce Ordering Physician: LIZZ MAYER Procedure Note Shira Cruz MD - 06/27/2024 1 [facility] Heart Station [address] [place] [address] [phone] (fax) Transesophageal Echocardiogram-[facility] Name: REYNALDO BAKER Study Date: 06/27/2024 10:06 AM B/P: 170 mmHg/89 mmHg HR: 64 bpm Date of : 1940 Location: [facility] Height: 66 in. Age: 84 year(s) Patient Room: [facility] VASCULAR POOL Weight: 136 lb. Gender: [...] (Opiates) 50 micrograms Procedure Staff Reading Group: [facility] Referring Physician: SHAILESH VINSON Floorworker Distributor: JODI Ponce Ordering Physician: LIZZ MAYER us Lizz Mayer THEOLOGY TEACHER CV ECHO PROCEDURES Final Resu lt * [...] root are obtained in anterior projection, no TRAVEL COTA-CAU views. The annulus measures 29.9 x 23.3 [...] root are obtained in anterior projection, no TRAVEL COTA-CAU views. The annulus measures 29.9 x 23.3 [...] 7:55 AM 10/13/2023 2:54 PM Care Teams Television Engineer Relationship Specialty Start Date End Date Shailesh Vinson DO [address] [facility] [place] [address] PCP - General Family Medicine 08/04/23 Dr. Sheri Christiansen [address] [address] Project Manager/Design Manager Cardiology 08/18/23
--- OUTSIDE RECORDS SUMMARY | 2024-09-02 09:47 | XMS_ITS | Encounter Summary ---
Author Organization [facility] Address [address] [place] [address] Phone Care Team Providers Care Organic Section Technical Lead Name Role Phone Shailesh Vinson DO Primary Care Provider [phone] Encounter Details Date Type Department Care Team (Late st Contact Info) Description 08/31/2023 Scanned Document [facility] [address] [place] [address] Scanning, Generic Provider Social History [...] on filedocumented in this encounter Care Teams Organic Section Technical Lead Relationship Specialty Start Date End Date Shailesh Vinson DO PCP - General 03/08/99 documented as of this encounter
--- OUTSIDE RECORDS SUMMARY | 2024-09-02 09:47 | XMS_ITS | CCD ---
Author Organization [facility] Care Team Providers Care Customer Security Clerk Name Role Phone Orlando Dotson Unavailable Raul Quan Unavailable Tamar Perea Unavailable Shailesh Dunham Unavailable DO Shailesh Dunham Primary Care Provider [phone] MD Raul Quan Attending Provider KB Perea Attending Provider MD Raul Quan Admit Provider DO Shailesh Dunham Primary Care Provider KB Perea Attending Provider MD Raul Quan Admit Provider [phone] MD Raul Quan Attending Provider SHAILESH DUNHAM Primary Care Physician IVELISSE FRANCIS [...] Provider DO Shailesh Dunham Primary Care Provider [phone] MD Raul Quan Attending Provider MD Raul [...] Care Provider MD Raul Quan Attending Provider [phone] JEZ CORREA Attending Unavailable SHAILESH DUNHAM Referring Unavailable MD Sheri Christiansen Attending Provider DO Shailesh Dunham Primary Care Provider MD Raul Quan Attending Provider [phone] DO Shailesh Dunham Primary Care Provider MD Sheri Christiansen Attending Provider DO Enrico Shailesh Primary Care Provider [phone] DO Shailesh Dunham Primary Care Provider MD Raul Quan Attending Provider Sahilesh Dunham Primary Care Unavailable Raul Quan Admitting Unavailable Raul Quan Attending Unavailable Avelina, Raul Admitting Unavailable Raul Quan Attending Unavailable Enrico, Shailesh Primary Care Unavailable Enrico, Shailesh Primary Care Unavailable Buehmary ann, Raul Admitting Unavailable StanislawehRaul reese Attending Unavailable Enrico, Shailesh Primary Care Unavailable Sheri Christiansen Admitting Unavailable Sheri Christiansen Attending Unavailable Enrico, Shailesh Primary Care Unavailable Sheri Christiansen Admitting Unavailable Sheri Christiansen Attending Unavailable ALGHOTHMARIANO KELLY Attending Unavailable ALGHOTHANI, MOHAMAD Admitting Unavailable SAMMIE CORRAL Attending Unavailable JEZ CERDA Referring Unavailable ABEL, LEVY CHILDERS Attending Unavailable SALAHALDEEN, AYA Admitting Unavailable MEENA, KEATON Referring Unavailable GIOVANNY CARRIZALES Attending Unavailable MAYER, ESTUARDO Referring Unavailable AMBER BRYANT Attending Unavailable CHRIS CHAVEZ Referring Unavailable OSPINAPILY Referring Unavailable SAMMIE CORRAL Referring Unavailable MAYER, ESTUARDO Referring Unavailable FRANKIE BRENNAN Attending Unavailable ALGHOTHANI, MOHAMAD Referring Unavailable MAYER, ESTUARDO Referring Unavailable MAYER, ESTUARDO Referring Unavailable MAYER, ESTUARDO Referring Unavailable MYAER, ESTUARDO Referring Unavailable ALGHOTHANI, MARIANO Attending Unavailable JOEL SPRING Attending Unavailable LOYDAUKAJOEL MASCORRO Referring Unavailable ALGHOTHANI, MOHAMAD Referring Unavailable JEZ CERDA Referring Unavailable AMBER BRYANT Attending Unavailable SEYMOUR COHN Attending Unavailable JOEL SPRING Referring Unavailable MOUKAJOEL MASCORRO Attending Unavailable JEZ CERDA Referring Unavailable MAYER, ESTUARDO Referring Unavailable AMBER BRYANT Attending Unavailable ABEL, LEVY CHILDERS Referring Unavailable SALAHALDEEN, AYA Referring Unavailable JOEL SPRING Referring Unavailable ARTEMIO WALDROP Referring Unavailable FRANCE BENITEZ Attending Unavailable HAILE BLAIR Referring Unavailabl e JOEL SPRING Attending Unavailable JEZ CERDA Attending Unavailable AMBER BRYANT Referring Unavailable HARIKA LIRIANO Referring Unavailable ESTUARDO MAYER Referring Unavailable JOEL SPRING Referring Unavailable JEZ CERDA Attending Unavailable AMBER BRYANT Attending Unavailable AMBER BRYANT Admitting Unavailable CARDOSO, LAZARA Attending Unavailable CHRIS CHAVEZ Admitting Unavailable JEZ CERDA Attending Unavailable Allergies Allergy Classification Reported Allergen(s) Allergy Type Date of Onset Reaction(s) Facility Angiotensin Converting Enzyme (SHALINI) Inhibitors (2 sources) Angiotensin Converting Enzyme (Shalini) Inhibitors Drug Allergy 08-27-19 24 [facility] Tetanus immune globulin (2 sources) Tetanus immune globulin Drug Allergy 08-27-19 Unknown Reaction [facility] (5 sources) Angiotensin Converting Enzyme (Shalini) Inhibitors Drug allergy Unknown [facility] Other (6 sources) Tetanus vaccine; Translations: [tetanus toxoid] Drug allergy Unknown [facility] Repository (20 sources) Angiotensin Converting Enzyme (Shalini) Inhibitors; Translations: [Angiotensin-conv erting enzyme inhibitor agent (substance)] Allergy to substance 05-09-19 16 Hives, [facility] (8 sources) Contrast media Allergy to substance 10-07-19 22 [facility] (20 sources) Tetanus immune globulin; Translations: [tetanus immune globulin] Drug Allergy 02-24-20 19 Unknown Reaction [facility] (20 sources) Angiotensin-conve rting enzyme inhibitor agent Drug allergy Unknown [facility] Other (2 sources) Tetanus toxoid specific immunoglobulin E Drug allergy Unknown [facility] Other (12 sources) Contrast media; Translations: [Contrast Dye] Allergy to substance unknown [facility] (13 sources) Iodine; Translations: [iodine] Drug Allergy 10-27-19 Unknown (qualifier value) [facility] (11 sources) tetanus toxoid vaccine, inactivated; Translations: [tetanus toxoid] Drug Allergy Unknown (qualifier value) [facility] (1 source) Iodine Drug Allergy [facility] Rep[facility] (1 source) Iodine (And Iodine Containting Drugs) Drug allergy (disorder) [facility] (1 source) Tetanus AND Diphtheria Tox,Adult Drug allergy (disorder) [facility] (20 sources) Tetanus vaccine Drug allergy Unknown [facility] Other (20 sources) Iodinated Contrast Media; Translations: [Iodinated Contrast Media] Allergy to substance 10-27-19 22 Hives [facility] (18 sources) tetanus toxoid, adsorbed; Translations: [tetanus toxoid, adsorbed] Allergy to substance 04-26-19 24 Unknown Reaction [facility] (1 source) GADOLINIUM-CONTAI MAYA CONTRAST MEDIA; Translations: [GADOLINIUM-CONTA INING CONTRAST MEDIA] Propensity to adverse reactions to drug (disorder) 05-09-19 [facility] Repository (1 source) TETANUS AND DIPHTHERIA TOXOIDS; Translations: [TETANUS AND DIPHTHERIA TOXOIDS] Propensity to adverse reactions to drug (disorder) 10-27-19 [facility] Repository (1 source) TETANUS VACCINES AND TOXOID; Translations: [TETANUS VACCINES AND TOXOID] Propensity to adverse reactions to drug (disorder) 05-16-19 16 [facility] Repository Medications Current Medications Medication Drug Class(es) Dates Sig (Normalized) Sig (Original) apixaban 2.5 mg oral tablet (10 sources) Factor Xa Inhibitor Start: 08-07-2024 take 1 tablet by mouth twice daily Apixaban (Eliquis) 2.5 mg tablet Active 2.5 MG PO Twice daily August 07, 2024 12:00am Start: 10-19-2023 End: 01-22-2024 take 1 tablet by mouth twice daily Apixaban (Eliquis) 2.5 mg tablet Discontinued 2.5 MG PO Twice daily October 19, 2023 12:00am January 22, 2024 1:17pm clopidogrel 75 mg oral tablet (20 sources) [id number] Platelet Inhibitor Start: 07-12-2024 take 1 tablet by mouth once daily Clopidogrel 75 mg tablet Active 75 MG PO Daily July 12, 2024 12:00am Start: 09-16-2021 End: 04-26-2023 take 1 tablet by mouth once daily in the morning Clopidogrel 75 mg tablet Discontinued 75 MG PO Every morning July 01, 2022 12:00am April 26, 2023 1:04pm Enoxaparin (2 sources) Low Molecular Weight Heparin Enoxaparin Sodium until 11/27/21 Active ferrous sulfate 325 mg oral tablet (2 sources) Start: 07-12-2024 take 1 tablet by mouth once daily Ferrous Sulfate 325 mg (65 mg iron) tablet Active 325 MG PO Daily July 12, 2024 12:00am folic acid 1 mg oral tablet (2 sources) Start: 07-12-2024 take 1 tablet by mouth once daily Folic Acid 1 mg tablet Active 1 MG PO Daily July 12, 2024 12:00am isosorbide dinitrate 30 mg oral tablet (11 sources) Nitrate Vasodilator Start: 03-28-2019 take 30 mg by mouth once daily isosorbide dinitrate 30 mg, Oral, Daily, Refills(s) 0 Start Date: 03/28/19 Status: Ordered losartan potassium 25 mg oral tablet (20 sources) Angiotensin 2 Receptor Helder Start: 03-09-2024 take 1 tablet by mouth once daily Losartan 25 mg tablet Active 25 MG PO Daily 90 90 March 09, 2024 6:02pm unless BP is greater than 140 Start: 10-22-2023 End: 03-09-2024 Losartan 50 mg tablet Discon tinued 25 MG PO Daily October 22, 2023 1:27pm March 09, 2024 6:02pm unless BP is greater than 140 Start: 10-22-2023 take 25 mg by mouth once daily Losartan Active 25 MG PO Daily October 22, 2023 12:27pm unless BP is greater than 140 Start: 09-03-2023 End: 10-22-2023 take 1 tablet by mouth once daily Losartan 50 mg tablet Discontinued 50 MG PO Daily September 03, 2023 8:47am October 22, 2023 1:27pm Start: 07-26-2023 End: 09-03-2023 take 1 tablet by mouth twice daily Losartan 50 mg tablet Discontinued 0 .ROUTE .COMPLEX 180 July 26, [...] 30 DAYS Start: 07-05-2023 End: 07-26-2023 take 1 tablet by mouth once daily at bedtime Losartan 50 mg tablet Discontinued 50 MG PO Daily at bedtime July 05, 2023 6:25pm July 26, 2023 12:44pm Start: 06-22-2023 End: 06-22-2023 take 1 tablet by mouth once daily Losartan 50 mg tablet Discontinued 50 MG PO Daily 90 90 June 22, 2023 10:13am June 22, 2023 12:15pm Start: 04-26-2023 End: 04-26-2023 Losartan 100 mg tablet Disco ntinued 50 MG PO Twice daily April 26, 2023 1:54pm April 26, 2023 1:56pm Start: 04-26-2023 End: 07-05-2023 take 1 tablet by mouth twice daily Losartan 50 mg tablet Discontinued 50 MG PO Twice daily June 22, 2023 12:14pm July 05, 2023 6:26pm Start: 04-26-2023 End: 04-26-2023 take 50 mg by mouth twice daily Losartan Discontinued 50 MG PO Twice daily April 26, 2023 12:54pm April 26, 2023 12:56pm Start: 02-04-2022 End: 04-26-2023 take 1 tablet by mouth once daily Losartan 25 mg tablet Discontinued 25 MG PO Daily February 04, 2022 1:00am [...] tablet (20 sources) HMG-CoA Reductase Inhibitor Start: 04-25-2024 take 1 tablet by mouth once daily in the evening Pravastatin 40 mg tablet Active 0 .ROUTE .COMPLEX April 25, 2024 7:59am TAKE 1 TABLET BY MOUTH EVERY DAY IN THE EVENING Start: 07-20-2023 End: 04-25-2024 take 1 tablet by mouth once daily at bedtime Pravastatin 40 mg tablet Discontinued 40 MG PO Daily at bedtime July 20, 2023 10:19am April 25, 2024 7:59am Start: 04-21-2023 End: 07-20-2023 take 1 tablet by mouth once daily in the evening Pravastatin 40 mg tablet Discontinued 0 .ROUTE .COMPLEX April 21, 2023 3:33pm July 20, 2023 10:19am TAKE 1 TABLET BY MOUTH EVERY DAY IN THE EVENING Start: 03-28-2019 End: 04-21-2023 take 1 tablet by mouth once daily in the evening Pravastatin 40 mg tablet Discontinued 40 MG PO Every evening February 05, 2022 1:00am April 21, 2023 3:33pm Start: 02-23-2019 End: 02-05-2022 take 1 tablet by mouth at bedtime Pravastatin 10 mg tablet Discontinued 10 MG PO Bedtime February 23, 2019 1:00am February 05, 2022 7:50am Pravastatin Acti ve sulfamethoxazole 800 mg / trimethoprim 160 mg oral tablet (2 sources) Dihydrofolate Reductase Inhibitor Antibacterial, Sulfonamide Antimicrobial Start: 02-11-2022 End: 03-13-2022 Bactrim D.S. 800 mg-160 mg Tab 1 tab(s), Oral, BID for 30 day(s), 60 tab(s), Refill(s) 0, [facility]/pharmacy #[id number], 169, cm, 02/11/22 8:44:00 [...] oral tablet (20 sources) Dihydropyridine Calcium Channel Helder Start: 06-22-2023 End: 06-29-2023 take 1 tablet by mouth once daily Amlodipine 2.5 mg tablet Discontinued 2.5 MG PO Daily June 22, 2023 10:12am June 29, 2023 1:27pm Start: 04-26-2023 End: 06-22-2023 take 1 tablet by mouth twice daily Amlodipine 2.5 mg tablet Discontinued 2.5 MG PO Twice daily April [...] acid 7540 MG / polyethylene glycol 3350 43054 MG / potassium chloride 1200 MG / sodium ascorbate 66576 MG / sodium chloride 3200 MG Powder for Oral Solution) / 1 (polyethylene glycol 3350 [id number] MG / potassium chloride 1000 MG / [...] Platelet Aggregation Inhibitor, Nonsteroidal Anti-inflammatory Drug Start: 08-07-2024 End: 08-14-2024 take 1 tablet by mouth once daily Aspirin 81 mg tablet,delayed release (DR/EC) Discontinued 81 MG PO Daily August 07, 2024 12:00am August 14, 2024 11:48am Start: 07-01-2022 End: 10-19-2023 take 1 tablet by mouth once daily at bedtime Aspirin 81 mg Tablet,Delayed Release (Dr/Ec) Discontinued 81 MG PO Daily at bedtime July 01, 2022 12:00am October 19, 2023 4:35pm Start: 01-28-2021 take 1 mg by mouth e very other day aspirin 81 mg oral capsule mg cap(s), Oral, Every other day, Refills(s) 0 Start Date: 01/28/21 Status: Ordered Start: 02-23-2019 End: 07-01-2022 take 1 tablet by mouth once daily Aspirin 81 mg Tablet,Chewable Discontinued 81 MG PO Daily February 23, 2019 1:00am July 01, 2022 9:43am take 1 tablet by freddy once daily Aspirin 81 81 MG 1 tablet Orally Once a day Active Calcium (13 sources) Phosphate Binder, Calcium Calciu m Not-Taking Calcium Active calcium citrate 1040 mg oral tablet (20 sources) Start: 07-01-2022 End: 06-22-2023 Calcium Citrate 250 mg calci um Tablet Discontinued 600 MG PO Twice daily July 01, 2022 12:00am June 22, 2023 12:14pm Start: 07-01-2022 End: 06-22-2023 take 600 mg [...] 25 mg oral tablet (20 sources) alpha-Adrenergic Helder, beta-Adrenergic Helder Start: 10-24-2023 End: 08-14-2024 take 1 tablet by mouth twice daily Carvedilol 25 mg tablet Discontinued 0 .ROUTE .COMPLEX 180 March 09, 2024 10:09am August 14, 2024 11:48am TAKE 1 TABLET BY MOUTH TWICE A DAY FOR 30 DAYS Start: 04-26-2023 End: 10-24-2023 take 1 tablet by mouth twice daily Carvedilol 25 mg tablet Discontinued 25 MG PO Twice daily 180 90 June 22, 2023 10:13am October 24, 2023 5:27pm Start: 04-14-2022 End: 04-26-2023 take 1 tablet by mouth twice daily at mealtime Carvedilol 3.125 mg Tablet Discontinued 3.125 MG PO Twice daily July 01, 2022 12:00am April 26, 2023 1:02pm must administer with a meal/food Start: 02-23-2019 End: 07-01-2022 take 1 tablet by mouth twice daily Carvedilol 12.5 mg tablet Discontinued 12.5 MG PO Twice daily February 23, 2019 1:00am July 01, 2022 9:44am take 1 tablet by freddy th every twelve hours Carvedilol 25 MG 1 tablet with food Orally Twice a day Active Carvedilol Activ e cefdinir 300 mg oral capsule (9 sources) Cephalosporin Antibacterial Start: 10-19-2023 End: 11-15-2023 take 1 capsule by mouth twice daily Cefdinir 300 mg capsule Discontinued 300 MG PO Twice daily October 19, 2023 12:00am November 15, 2023 10:16am cholecalciferol 0.025 mg oral capsule (20 sources) Vitamin D Start: 07-01-2022 End: 07-12-2024 take 1 capsule by mouth twice daily Cholecalciferol (Vitamin D3) (Vitamin D3) 25 mcg (1,000 unit) Capsule Discontinued 25 MCG PO Twice daily July 01, 2022 12:00am July 12, 2024 3:19pm Start: 10-06-2021 End: 07-01-2022 take 1 capsule by mouth once daily Cholecalciferol (Vitamin D3) (Vitamin D3) 50 mcg (2,000 unit) Capsule Discontinued 50 MCG PO Daily October 06, 2021 12:00am July 01, 2022 9:45am take 1 tablet by freddy th every twenty-four hours Vitamin D3 25 MCG (1000 UT) 1 tablet Orally Once a day Active diphenhydrAMINE hydrochloride 50 mg oral capsule (20 sources) Histamine-1 Receptor Antagonist Start: 06-15-2023 End: 06-22-2023 Diphenhydramine Hcl 50 mg capsule Discontinued 50 MG PO Once 1 June 15, 2023 12:00am June 22, 2023 12:16pm Orally 60 minutes prior to test Start: 05-27-2023 End: 06-22-2023 take 1 tablet by mouth once as needed Diphenhydramine Hcl (Benadryl Allergy) 50 mg tablet Discontinued 50 MG PO Once as needed for allergic reaction May 27, 2023 12:00am June 22, 2023 12:14pm Orally 60 minutes prior to test Start: 05-27-2023 End: 06-22-2023 Diphenhydramine Hcl (Benadry l Allergy) 50 mg tablet Discontinued 50 MG PO Once May 26, 2023 11:00pm June 22, 2023 11:14am Orally 60 minutes prior to test doxazosin 4 mg oral tablet (20 sources) alpha-Adrenergic Helder Start: 02-23-2019 End: 10-06-2021 take 1 tablet by mouth once daily Doxazosin 4 mg tablet Discontinued 4 MG PO Daily February 23, 2019 1:00am October 06, 2021 10:38am hydroCHLOROthiazide 25 mg oral tablet (9 sources) Thiazide Diuretic Start: 10-19-2023 End: 11-23-2023 take 1 tablet by mouth once daily Hydrochlorothiazide 25 mg tablet Discontinued 25 MG PO Daily October 19, 2023 12:00am November 23, 2023 10:30am On Hold: None 24 hr isosorbide mononitrate 30 mg extended release oral tablet (20 sources) Nitrate Vasodilator Start: 07-20-2023 End: 07-12-2024 take 1 tablet by mouth once daily, then take 1 tablet by mouth every twenty-fo ur hours Isosorbide Mononitrate 30 mg tablet extended release 24 hr Discontinued 30 MG PO Daily July 20, 2023 10:18am July 12, 2024 3:20pm Start: 04-26-2023 End: 07-20-2023 take 1 tablet by mouth once daily Isosorbide Mononitrate 30 mg tablet extended release 24 hr Discontinued 0 .ROUTE .COMPLEX 90 June 28, 2023 1:30pm July 20, 2023 10:19am TAKE 1 TABLET BY MOUTH EVERY DAY Start: 02-23-2019 End: 04-26-2023 take 1 tablet by mouth once daily, then take 1 tablet by mouth every twenty-four hours Isosorbide Mononitrate 30 mg tablet extended release 24 hr Discontinued 30 MG PO Daily February 23, 2019 1:00am April 26, 2023 6:54pm Isosorbide [place] itrate Active omeprazole 20 mg delayed release oral capsule (12 sources) Proton Pump Inhibitor Start: 08-27-2023 End: 10-19-2023 take 1 capsule by mouth once daily Omeprazole 20 mg capsule,delayed release(DR/EC) Discontinued 20 MG PO Daily August 27, 2023 12:00am October 19, 2023 4:35pm oxybutynin chloride 5 mg oral tablet (20 sources) Cholinergic Muscarinic Antagonist Start: 04-26-2023 End: 06-22-2023 take 1 tablet by mouth every eight hours as needed Oxybutynin Chloride 5 mg tablet Discontinued 5 MG PO Every 8 hours as needed April 26, 2023 1:00am June 22, 2023 12:15pm take 1 tablet by freddy th every eight hours as needed oxyBUTYnin Chloride 5 MG 1 tablet Orally every 8 hours as needed Active potassium chloride 10 meq extended release oral capsule (9 sources) Start: 10-19-2023 End: 11-23-2023 take 1 capsule by mouth twice daily Potassium Chloride 10 mEq capsule, extended release Discontinued 10 MEQ PO Twice daily October 19, 2023 12:00am November 23, 2023 10:30am On Hold: None predniSONE 50 mg oral tablet (20 sources) Start: 06-15-2023 End: 06-22-2023 Prednisone 50 mg tablet Discontinued 50 MG PO .COMPLEX 3 June 15, 2023 12:00am June 22, 2023 12:15pm 50 mg orally Three (3) doses; 6 hours apart with LAST dose ending 30 minutes before test Start: 05-27-2023 End: 06-22-2023 Prednisone 50 mg tablet Disc ontinued 50 MG PO Once 3 May 27, 2023 12:00am June 22, 2023 12:15pm Orally for (3) THREE DOSES; 6 hours apart with the last dose 30 minutes before test. rivaroxaban 15 mg oral tablet (2 sources) Factor Xa Inhibitor Start: 01-22-2024 End: 07-12-2024 take 1 tablet by mouth once daily at dinner Rivaroxaban (Xarelto) 15 mg tablet Discontinued 15 MG PO Daily 30 January 22, 2024 1:00am July 12, 2024 3:19pm must administer with evening meal tamsulosin hydrochloride 0.4 mg oral capsule (20 sources) alpha-Adrenergic Helder Start: 04-26-2023 End: 06-22-2023 take 1 capsule by mouth once daily Tamsulosin 0.4 mg capsule Discontinued 0.4 MG PO Daily April 26, 2023 1:00am June 22, 2023 12:15pm take 1 capsule by mo [facility] every twenty-four hours Tamsulosin HCl 0.4 MG 1 capsule Orally Once a day Active vancomycin 125 mg oral capsule (5 sources) Glycopeptide Antibacterial Start: 12-17-2023 End: 07-12-2024 take 1 capsule by mouth four times daily Vancomycin 125 mg capsule Discontinued 125 MG PO Four times daily 40 December 17, 2023 12:00am July 12, 2024 3:19pm Problems Active Problems Problem Classification Problem Date Documented Da te Episodic/Chronic Acute myocardial infarction (20 sources) Myocardial infarction; Translations: [Non-ST elevation (NSTEMI) myocardial infarction] 10-18-2023 Chronic Aortic; peripheral; and visceral artery aneurysms (20 sources) Abdominal aortic aneurysm without rupture; Translations: [Abdominal aortic aneurysm, without rupture] Onset: 07-28-2021 Resolved: 11-24-2021 Chronic Comment on above: Problem List clean-u p per request of Phys. EHR Cmte Calculus of urinary tract (20 sources) Kidney stone; Translations: [History of calculus of kidney] Onset: 04-15-2022 03-28-2019 Episodic Cardiac dysrhythmias (20 sources) Atrial fibrillation; Translations: [Unspecified atrial fibrillation] Onset: 06-27-2024 10-18-2023 Chronic Comment on above: Implantable loop rec order - 04/2024 Event monitor: NSVT, longest duration 5 beats - 03/2024Implantable loop recorder - 04/2024 Cardiac dysrhythmias (2 sources) Palpitations; Translations: [Palpitations] Onset: 07-28-2024 Episodic Congestive heart failure; nonhypertensive (20 sources) Acute exacerbation of chronic congestive heart failure; Translations: [Acute on chronic diastolic (congestive) heart failure] 10-17-2023 Chronic Comment on above: Echo: LVEF 60-65%, n ormal RV size/function, RVSP 42, AV velocity 209, gradient 34/19 - 10/2023 Echo: LVEF 55%, normal RV size/function, ASHOK 0.9cm, velocity 266, gradient 28/18 - 04/2024 Coronary atherosclerosis and other heart disease (20 sources) Coronary arteriosclerosis; Translations: [Atherosclerotic heart disease of [place] coronary artery without angina pectoris] Onset: 11-14-2021 03-28-2019 Chronic Comment on above: Stress: fixed defect infero-apical wall, LVEF 51% - 01/2024,Event monitor: NSVT - 03/2024,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,LHC: PTCA/stent mid LAD, PTCA/stent 1st OM, PTCA/stent 2nd OM - 06/2024 Coronary atherosclerosis and other heart disease (2 sources) Presence of coronary angioplasty implant and graft; Translations: [Presence of coronary angioplasty implant and graft] Onset: 08-10-2024 Episodic Deficiency and other anemia (7 sources) Anemia, unspecified; Translations: [Anemia, unspecified] Onset: 09-22-2021 Episodic Deficiency and other anemia (19 sources) Anemia; Translations: [Anemia, unspecified] 08-14-2024 Episodic Diabetes mellitus without complication (20 sources) [...] [Nonrheumatic aortic (valve) stenosis] Onset: 08-19-2023 Chronic Comment on above: Echo: LVEF 60-65%, n ormal RV size/function, AO velocity 312, AO gradient 34/22, ASHKO 0.98 - 08/2023Echo: LVEF 60-65%, normal RV size/function, RVSP 42, Velocity 209, gradient 34/19 - 10/2023 Hyperplasia of prostate (20 sources) Benign prostatic [...] difficile, not specified as recurrent] 12-19-2023 Episodic Nonspecific chest pain (2 sources) Chest pain, unspecified; Translations: [Chest pain, unspecified] Onset: 08-31-2024 Episodic Nutritional deficiencies (20 sources) Vitamin D deficiency; Translations: [Vitamin D deficiency, unspecified] 04-26-2023 Chronic Occlusion or stenosis of precerebral arteries (20 sources) Carotid artery stenosis; Translations: [Occlusion and stenosis of unspecified carotid artery] Onset: 07-28-2021 Resolved: 09-15-2021 Chronic Comment on above: Carotid US: < 50% B/ L - 05/2024 Problem List clean-u p per request of Phys. 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; 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] Chronic Other bone disease and musculoskeletal deformities (15 sources) Paget's disease of pelvis; 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] 06-22-2023 Chronic Other bone disease and musculoskeletal deformities (18 sources) Osteitis deformans of other bones; Translations: [Osteitis deformans without mention of bone tumor] 06-22-2023 Chronic Other circulatory disease (2 sources) Presence of other cardiac implants and grafts; Translations: [Presence of other cardiac implants and grafts] Onset: 08-31-2024 Chronic Other diseases of bladder and urethra [...] dyspnea; Translations: [Other forms of dyspnea] Onset: 08-31-2024 Episodic Other lower respiratory disease (2 sources) Hemoptysis; Translations: [Hemoptysis] Onset: 06-27-2024 Episodic Other male genital disorders (17 sources) Male erectile dysfunction, unspecified; Translations: [Erectile dysfunction] Onset: 02-11-2022 Chronic Other nutritional; endocrine; and metabolic disorders (18 sources) Abnormal weight loss; Translations: [Abnormal weight loss] Episodic Other screening for suspected conditions (not mental disorders or infectious disease) (20 sources) Computed tomography result abnormal; Translations: [Abnormal findings on diagnostic imaging of other specified body structures] 02-23-2019 Chronic Comment on above: Problem List clean-u p per request of Phys. EHR Cmte Other skin disorders (4 sources) Eruption; Translations: [...] of nicotine dependence] Onset: 11-14-2021 08-15-2019 Episodic Superficial injury; contusion (4 sources) Contusion of unspecified part of neck, sequela; Translations: [Abrasion of throat, initial encounter] Onset: 06-27-2024 Episodic Unclassified (11 sources) Asymptomatic microscopic hematuria [...] tachycardia; Translations: [Other ventricular tachycardia] Onset: 01-18-2024 Urinary tract infections (2 sources) Acute cystitis without hematuria; Translations: [Acute cystitis without hematuria] Onset: 08-01-2024 Episodic Past or Other Problems Problem Classification Problem Date Documented Da te Episodic/Chronic Abdominal pain (3 sources) Epigastric pain; Translations: [EPIGASTRIC PAIN] Onset: 2 Episodic Allergic reactions (19 sources) Allergy to contrast media; Translations: [Radiographic dye allergy status] Onset: 4 05-27-2023 Episodic Biliary tract disease (20 sources) Polyp of gallbladder; 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] Onset: 4 06-22-2023 Episodic Deficiency and other anemia (1 source) Other specified anemias; Translations: [OTHER SPECIFIED ANEMIAS] Onset: 2 Episodic E Codes: Fall (2 [...] 4 Episodic Other aftercare (1 source) Other long term care pharmacist (current) drug therapy; Translations: [OTH TALENT ASSOCIATE CURRENT DRUG THERAPY] Onset: 2 Episodic Other aftercare (1 source) snf (current) use of anticoagulants; Translations: [TALENT ASSOCIATE CURRNT USE ANTICOAGULANTS] Onset: 2 Episodic Other aftercare (1 source) snf (current) use of aspirin; Translations: [ALF CURRENT USE OF ASPIRIN] Onset: 2 Episodic Other bone disease and musculoskeletal deformities (1 source) Other specified disorders of bone density and structure, unspecified site; Translations: [OTH D/O BONE DEN STRUCT UNS SITE] Onset: 2 Episodic Other circulatory disease (2 sources) Other specified symptoms and signs involving the circulatory and respiratory systems; Translations: [Other specified symptoms and signs involving the circulatory and respiratory systems] Onset: 5 Episodic Other fractures (1 source) Fracture of [...] with routine healing] Onset: 4 Episodic Other gastrointestinal disorders (2 sources) Dysphagia, oral phase; Translations: [Dysphagia, oral phase] Onset: 5 Episodic Other non-traumatic joint disorders (3 sources) Pain in right shoulder; Translations: [PAIN IN RIGHT SHOULDER] Onset: 2 Episodic Other screening for suspected conditions (not mental disorders or infectious disease) (2 sources) Abnormal result of other cardiovascular function study; Translations: [Abnormal result of other cardiovascular function study] Onset: 5 Episodic Unclassified (4 sources) Abdominal aortic aneurysm [...] ventricular tachycardia; Translations: [Other ventricular tachycardia] Onset: 5 Results Test Name Value Interpretation Reference Range Facility Results Follow-Upon 09-02-19 25 Results Follow-Up Normal [facility] 29on 08-31-2024 29 Addended by: SAMMIE CORRAL on: 08/31/2024 07:31 PM Modules accepted: Level of Service Normal [facility] BASIC METABOLIC PANELon 08-07 Anion gap [Moles/Vol] 13 mmol/L Normal 7-[address] [facility] Comment on above: Performed By: #### L [id number] ####[facility] ([facility]AK[facility])[address] [place] [address] Calcium [Mass/Vol] 8.9 mg/dL Normal 8.6-10.3 [facility] Comment on above: Performed By: #### L [id number] ####[facility] ([facility])[address] [place] [address] Chloride [Moles/Vol] 108 mmol/L High 98-107 [facility] Comment on above: Performed By: #### L [id number] ####[facility] ([facility])[address] [place] [address] CO2 [Moles/Vol] 21 mmol/L Normal 21-31 [facility] Comment on above: Performed By: #### L [id number] ####[facility] ([facility])[address] [place] [address] Creatinine [Mass/Vol] 0.79 mg/dL Normal 0.70-1.30 [facility] Comment on above: Performed By: #### L [id number] ####[facility] ([facility])[address] [place] [address] GLOMERULAR FILTRATION RATE ML/MIN/1.73 SQ M.PREDICTED 88.7 mL/min/1.73m*2 Normal >60.0 [facility] Comment on above: Result Comment: [facility]???s estimated glomerular filtration rate (eGFR) will [...] group of individuals. Performed By: #### L [id number] ####[facility] ([facility])[address] [place] [address] Glucose [Mass/Vol] 106 mg/dL High 70-100 [facility] Comment on above: Performed By: #### L [id number] ####[facility] ([facility])[address] [place] [address] Potassium [Moles/Vol] 4.4 mmol/L Normal 3.5-5.1 [facility] Comment on above: Performed By: #### L [id number] ####[facility] ([facility])[address] [place] [address] Sodium [Moles/Vol] 138 mmol/L Normal 136-145 [facility] Comment on above: Performed By: #### L [id number] ####[facility] ([facility])[address] [place] [address] Urea nitrogen [Mass/Vol] 19 mg/dL Normal 7-25 [facility] Comment on above: Performed By: #### L [id number] ####[facility] ([facility])[address] [place] [address] UREA NITROGEN/CREATININE (MASS RATIO) IN SER/PLAS 24.1 Normal [facility] Comment on above: Performed By: #### L [id number] ####[facility] ([facility])[address] [place] [address] CBC WITH AUTO DIFFERENTIALon 08-31-2024 Basophils (Bld) [#/Vol] 0.05 10*3/uL Normal 0.00-0.20 [facility] Comment on above: Performed By: #### L [id number] ####[facility] ([facility])[address] [place] [address] Basophils/100 WBC (Bld) 0.4 % Normal 0.0-1.0 [facility] Comment on above: Performed By: #### L [id number] ####[facility] ([facility])[address] [place] [address] Eosinophils (Bld) [#/Vol] 0.13 10*3/uL Normal 0.00-0.50 [facility] Comment on above: Performed By: #### L [id number] ####[facility] ([facility])[address] [place] [address] Eosinophils/100 WBC (Bld) 1.1 % Normal 0.0-6.0 [facility] Comment on above: Performed By: #### L [id number] ####[facility] ([facility])[address] [place] [address] Erythrocyte distribution width (RBC) [Ratio] 13.4 % Normal 11.5-15.0 [facility] Comment on above: Performed By: #### L [id number] ####[facility] ([facility])[address] [place] [address] ERYTHROCYTE MEAN CORPUSCULAR HEMOGLOBIN CONCENTRATION (G/DL) BY AUTOMATED 31.4 g/dL Low 32.0-35.0 [facility] Comment on above: Performed By: #### L [id number] ####[facility] ([facility]ER)[address] [place] [address] Hematocrit (Bld) [Volume fraction] 37.9 % Low 39.0-50.0 [facility] Comment on above: Performed By: #### L [id number] ####[facility] ([facility]ER)[address] [place] [address] Hemoglobin (Bld) [Mass/Vol] 11.9 g/dL Low 13.0-17.0 [facility] Comment on above: Performed By: #### L [id number] ####[facility] ([facility]ER)[address] [place] [address] Immature granulocytes (Bld) [#/Vol] 0.04 10*3/uL Normal 0.00-0.20 [facility] Comment on above: Performed By: #### L [id number] ####[facility] ([facility]ER)[address] [place] [address] Immature granulocytes/100 WBC (Bld) 0.4 % Normal 0.0-1.0 [facility] Comment on above: Performed By: #### L [id number] ####[facility] ([facility]ER)[address] [place] [address] Lymphocytes (Bld) [#/Vol] 1.59 10*3/uL Normal 1.20-4.00 [facility] Comment on above: Performed By: #### L [id number] ####[facility] ([facility])[address] [place] [address] Lymphocytes/100 WBC (Bld) 14.0 % Low 20.0-45.0 [facility] Comment on above: Performed By: #### L [id number] ####[facility] ([facility]ER)[address] [place] [address] MCH (RBC) [Entitic mass] 29.7 pg Normal 27.0-33.0 [facility] Comment on above: Performed By: #### L [id number] ####[facility] [place] [address] MCV (RBC) [Entitic vol] 94.5 fL Normal 82.0-98.0 [facility] Comment on above: Performed By: #### L [id number] ####[facility] [place] [address] Monocytes (Bld) [#/Vol] 0.94 10*3/uL Normal 0.10-1.00 [facility] Comment on above: Performed By: #### L [id number] ####[facility] [place] [address] Monocytes/100 WBC (Bld) 8.3 % Normal 5.0-12.0 [facility] Comment on above: Performed By: #### L [id number] ####[facility] ([facility])[address] [place] [address] Neutrophils (Bld) [#/Vol] 8.58 10*3/uL High 1.60-7.60 [facility] Comment on above: Performed By: #### L [id number] ####[facility] ([facility])[address] [place] [address] Neutrophils/100 WBC (Bld) 75.8 % High 40.0-72.0 [facility] Comment on above: Performed By: #### L [id number] ####[facility] ([facility])[address] [place] [address] NRBC (PER 100 WBCS) BY AUTOMATED COUNT 0.0 % Normal 0 [facility] Comment on above: Performed By: #### L [id number] ####[facility] ([facility])[address] [place] [address] PLATELETS (10*3/UL) IN BLOOD AUTOMATED COUNT 195 10*3/uL Normal 150-400 [facility] Comment on above: Performed By: #### L [id number] ####[facility] ([facility])[address] [place] [address] RBC (Bld) [#/Vol] 4.01 10*6/uL Low 4.20-5.70 [facility] Comment on above: Performed By: #### L [id number] ####[facility] ([facility])[address] [place] [address] WBC (Bld) [#/Vol] 11.33 10*3/uL High 4.00-10.60 [facility] Comment on above: Performed By: #### L [id number] ####[facility] ([facility])[address] [place] [address] HIGH SENSITIVITY TROPONIN Io n 08-31-2024 HS TROPONIN I (NG/L) 25 ng/L High <20 [facility] Comment on above: Performed By: #### L [id number] ####[facility] ([facility])[address] [place] [address] Orders Onlyon 08-31-2024 Orders Only Normal [facility] Follow-Upon 08-15-2024 Follow-Up Normal [facility] Follow-Upon 08-10-2024 Follow-Up Normal [facility] 30on 08-06-2024 30 Normal [facility] BASIC METABOLIC PANELon 06-0 Anion gap [Moles/Vol] 9 mmol/L Normal 7-20 [facility] Comment on above: Performed By: #### L [id number] ####[facility] ([facility])[address] [place] [address] Calcium [Mass/Vol] 7.9 mg/dL Low 8.6-10.3 [facility] Comment on above: Performed By: #### L [id number] ####[facility] [place] [address] Chloride [Moles/Vol] 104 mmol/L Normal 98-107 [facility] Comment on above: Performed By: #### L [id number] ####[facility] ([facility])[address] [place] [address] CO2 [Moles/Vol] 27 mmol/L Normal 21-31 [facility] Comment on above: Performed By: #### L [id number] ####[facility] ([facility])[address] [place] [address] Creatinine [Mass/Vol] 0.55 mg/dL Low 0.70-1.30 [facility] Comment on above: Performed By: #### L [id number] ####[facility] ([facility])[address] [place] [address] GLOMERULAR FILTRATION RATE ML/MIN/1.73 SQ M.PREDICTED 98.9 mL/min/1.73m*2 Normal >60.0 [facility] Comment on above: Result Comment: [facility]???s estimated glomerular filtration rate (eGFR) will [...] group of individuals. Performed By: #### L [id number] ####[facility] ([facility])[address] [place] [address] Glucose [Mass/Vol] 107 mg/dL High 70-100 [facility] Comment on above: Performed By: #### L [id number] ####[facility] ([facility])[address] [place] [address] Potassium [Moles/Vol] 4.1 mmol/L Normal 3.5-5.[address] [facility] Comment on above: Performed By: #### L [id number] ####[facility] [place] [address] Sodium [Moles/Vol] 136 mmol/L Normal 136-145 [facility] Comment on above: Performed By: #### L [id number] ####[facility] ([facility] [place] [address] Urea nitrogen [Mass/Vol] 22 mg/dL Normal 7-25 [facility] Comment on above: Performed By: #### L [id number] ####[facility] [place] [address] UREA NITROGEN/CREATININE (MASS RATIO) IN SER/PLAS 40.0 Normal [facility] Comment on above: Performed By: #### L [id number] ####[facility] [place] [address] CBC WITH AUTO DIFFERENTIALon 08-06-2024 Basophils (Bld) [#/Vol] 0.03 10*3/uL Normal 0.00-0.20 [facility] Comment on above: Performed By: #### L [id number] ####[facility] [place] [address] Basophils/100 WBC (Bld) 0.4 % Normal 0.0-1.0 [facility] Comment on above: Performed By: #### L [id number] ####[facility] ([facility])[address] [place] [address] Eosinophils (Bld) [#/Vol] 0.15 10*3/uL Normal 0.00-0.50 [facility] Comment on above: Performed By: #### L [id number] ####[facility] ([facility])[address] [place] [address] Eosinophils/100 WBC (Bld) 1.8 % Normal 0.0-6.0 [facility] Comment on above: Performed By: #### L [id number] ####[facility] ([facility])[address] [place] [address] Erythrocyte distribution width (RBC) [Ratio] 13.0 % Normal 11.5-15.0 [facility] Comment on above: Performed By: #### L [id number] ####[facility] ([facility])[address] [place] [address] ERYTHROCYTE MEAN CORPUSCULAR HEMOGLOBIN CONCENTRATION (G/DL) BY AUTOMATED 32.1 g/dL Normal 32.0-35.0 [facility] Comment on above: Performed By: #### L [id number] ####[facility] ([facility])[address] [place] [address] Hematocrit (Bld) [Volume fraction] 28.0 % Low 39.0-50.0 [facility] Comment on above: Performed By: #### L [id number] ####[facility] ([facility])[address] [place] [address] Hemoglobin (Bld) [Mass/Vol] 9.0 g/dL Low 13.0-17.0 [facility] Comment on above: Performed By: #### L [id number] ####[facility] (AKER)[address] [place] [address] Immature granulocytes (Bld) [#/Vol] 0.04 10*3/uL Normal 0.00-0.20 [facility] Comment on above: Performed By: #### L [id number] ####[facility] ([facility])[address] [place] [address] Immature granulocytes/100 WBC (Bld) 0.5 % Normal 0.0-1.0 [facility] Comment on above: Performed By: #### L [id number] ####[facility] ([facility]ER)[address] [place] [address] Lymphocytes (Bld) [#/Vol] 1.37 10*3/uL Normal 1.20-4.00 [facility] Comment on above: Performed By: #### L [id number] ####[facility] ([facility])[address] [place] [address] Lymphocytes/100 WBC (Bld) 16.6 % Low 20.0-45.0 [facility] Comment on above: Performed By: #### L [id number] ####[facility] ([facility]ER)[address] [place] [address] MCH (RBC) [Entitic mass] 29.7 pg Normal 27.0-33.0 [facility] Comment on above: Performed By: #### L [id number] ####[facility] [place] [address] MCV (RBC) [Entitic vol] 92.4 fL Normal 82.0-98.0 [facility] Comment on above: Performed By: #### L [id number] ####[facility] [place] [address] Monocytes (Bld) [#/Vol] 0.92 10*3/uL Normal 0.10-1.00 [facility] Comment on above: Performed By: #### L [id number] ####[facility] ([facility])[address] [place] [address] Monocytes/100 WBC (Bld) 11.2 % Normal 5.0-12.0 [facility] Comment on above: Performed By: #### L [id number] ####[facility] ([facility])[address] [place] [address] Neutrophils (Bld) [#/Vol] 5.73 10*3/uL Normal 1.60-7.60 [facility] Comment on above: Performed By: #### L [id number] ####[facility] ([facility])[address] [place] [address] Neutrophils/100 WBC (Bld) 69.5 % Normal 40.0-72.0 [facility] Comment on above: Performed By: #### L [id number] ####[facility] ([facility])[address] [place] [address] NRBC (PER 100 WBCS) BY AUTOMATED COUNT 0.0 % Normal 0 [facility] Comment on above: Performed By: #### L [id number] ####[facility] ([facility])[address] [place] [address] PLATELETS (10*3/UL) IN BLOOD AUTOMATED COUNT 165 10*3/uL Normal 150-400 [facility] Comment on above: Performed By: #### L [id number] ####[facility] ([facility])[address] [place] [address] RBC (Bld) [#/Vol] 3.03 10*6/uL Low 4.20-5.70 [facility] Comment on above: Performed By: #### L [id number] ####[facility] ([facility])[address] [place] [address] WBC (Bld) [#/Vol] 8.24 10*3/uL Normal 4.00-10.60 [facility] Comment on above: Performed By: #### L [id number] ####[facility] ([facility])[address] [place] [address] DSon 08-06-2024 DS [facility] MAGNESIUMon 08-06-2024 Magnesium [Mass/Vol] 1.7 mg/dL Low 1.9-2.7 [facility] Comment on above: Performed By: #### L [id number] ####[facility] ([facility])[address] [place] [address] 30on 08-05-2024 30 Normal [facility] 30 Normal [facility] BASIC METABOLIC PANELon 05-3 Anion gap [Moles/Vol] 9 mmol/L Normal 7-20 [facility] Comment on above: Performed By: #### L [id number] ####[facility] ([facility])[address] [place] [address] Calcium [Mass/Vol] 7.8 mg/dL Low 8.6-10.3 [facility] Comment on above: Performed By: #### L [id number] ####[facility] [place] [address] Chloride [Moles/Vol] 105 mmol/L Normal 98-107 [facility] Comment on above: Performed By: #### L [id number] ####[facility] [place] [address] CO2 [Moles/Vol] 27 mmol/L Normal 21-31 [facility] Comment on above: Performed By: #### L [id number] ####[facility] ([facility])[address] [place] [address] Creatinine [Mass/Vol] 0.49 mg/dL Low 0.70-1.30 [facility] Comment on above: Performed By: #### L [id number] ####[facility] ([facility])[address] [place] [address] GLOMERULAR FILTRATION RATE ML/MIN/1.73 SQ M.PREDICTED 102.5 mL/min/1.73m*2 Normal >60.0 [facility] Comment on above: Result Comment: [facility]???s estimated glomerular filtration rate (eGFR) will [...] group of individuals. Performed By: #### L [id number] ####[facility] [place] [address] Glucose [Mass/Vol] 107 mg/dL High 70-100 [facility] Comment on above: Performed By: #### L [id number] ####[facility] [place] [address] Potassium [Moles/Vol] 4.0 mmol/L Normal 3.5-5.[address] [facility] Comment on above: Performed By: #### L [id number] ####[facility] [place] [address] Sodium [Moles/Vol] 137 mmol/L Normal 136-145 [facility] Comment on above: Performed By: #### L [id number] ####[facility] [place] [address] Urea nitrogen [Mass/Vol] 23 mg/dL Normal 7-25 [facility] Comment on above: Performed By: #### L [id number] ####[facility] ([facility])[address] [place] [address] UREA NITROGEN/CREATININE (MASS RATIO) IN SER/PLAS 46.9 Normal [facility] Comment on above: Performed By: #### L [id number] ####[facility] ([facility])[address] [place] [address] CBC WITH AUTO DIFFERENTIALon 08-05-2024 Basophils (Bld) [#/Vol] 0.02 10*3/uL Normal 0.00-0.20 [facility] Comment on above: Performed By: #### L [id number] ####[facility] [place] [address] Basophils/100 WBC (Bld) 0.2 % Normal 0.0-1.0 [facility] Comment on above: Performed By: #### L [id number] ####[facility] (BEAKER)[address] [place] [address] Eosinophils (Bld) [#/Vol] 0.09 10*3/uL Normal 0.00-0.50 [facility] Comment on above: Performed By: #### L [id number] ####[facility] (BEAKER)[address] [place] [address] Eosinophils/100 WBC (Bld) 1.0 % Normal 0.0-6.0 [facility] Comment on above: Performed By: #### L [id number] ####[facility] (BE[facility]ER)[address] [place] [address] Erythrocyte distribution width (RBC) [Ratio] 13.2 % Normal 11.5-15.0 [facility] Comment on above: Performed By: #### L [id number] ####[facility] ([facility]ER)[address] [address] ERYTHROCYTE MEAN CORPUSCULAR HEMOGLOBIN CONCENTRATION (G/DL) BY AUTOMATED 32.0 g/dL Normal 32.0-35.0 [facility] Comment on above: Performed By: #### L [id number] ####[facility] ([facility])[address], [place] [address] Hematocrit (Bld) [Volume fraction] 26.6 % Low 39.0-50.0 [facility] Comment on above: Performed By: #### L [id number] ####[facility] [facility])[address] [place] [address] Hemoglobin (Bld) [Mass/Vol] 8.5 g/dL Low 13.0-17.0 [facility] Comment on above: Performed By: #### L [id number] ####[facility] (AKER)[address] [place], [place] [address] Immature granulocytes (Bld) [#/Vol] 0.02 10*3/uL Normal 0.00-0.20 [facility] Comment on above: Performed By: #### L [id number] ####[facility] (BEAKER)[address] [place] [address] Immature granulocytes/100 WBC (Bld) 0.2 % Normal 0.0-1.0 [facility] Comment on above: Performed By: #### L [id number] ####[facility] (BEAKER)[address], [place] [address] Lymphocytes (Bld) [#/Vol] 1.29 10*3/uL Normal 1.20-4.00 [facility] Comment on above: Performed By: #### L [id number] ####[facility] (BEAKER)[address] [place] [address] Lymphocytes/100 WBC (Bld) 14.2 % Low 20.0-45.0 [facility] Comment on above: Performed By: #### L [id number] ####[facility] (BEAKER)[address] [place] [address] MCH (RBC) [Entitic mass] 29.9 pg Normal 27.0-33.0 [facility] Comment on above: Performed By: #### L [id number] ####[facility] (BEAKER)[address] [place] [address] MCV (RBC) [Entitic vol] 93.7 fL Normal 82.0-98.0 [facility] Comment on above: Performed By: #### L [id number] ####[facility] (BEAKER)[address] [place] [address] Monocytes (Bld) [#/Vol] 0.90 10*3/uL Normal 0.10-1.00 [facility] Comment on above: Performed By: #### L [id number] ####[facility] (BEAKER)[address] [place] [address] Monocytes/100 WBC (Bld) 9.9 % Normal 5.0-12.0 [facility] Comment on above: Performed By: #### L [id number] ####[facility] (BEAKER)[address] [place] [address] Neutrophils (Bld) [#/Vol] 6.75 10*3/uL Normal 1.60-7.60 [facility] Comment on above: Performed By: #### L [id number] ####[facility] (BEAKER)[address] [place] [address] Neutrophils/100 WBC (Bld) 74.5 % High 40.0-72.0 [facility] Comment on above: Performed By: #### L [id number] ####[facility] (BEAKER)[address] [place] [address] NRBC (PER 100 WBCS) BY AUTOMATED COUNT 0.0 % Normal 0 [facility] Comment on above: Performed By: #### L [id number] ####[facility] ([facility])[address] [place] [address] PLATELETS (10*3/UL) IN BLOOD AUTOMATED COUNT 142 10*3/uL Low 150-400 [facility] Comment on above: Performed By: #### L [id number] ####[facility] ([facility])[address] [place] [address] RBC (Bld) [#/Vol] 2.84 10*6/uL Low 4.20-5.70 [facility] Comment on above: Performed By: #### L [id number] ####[facility] ([facility])[address] [place] [address] WBC (Bld) [#/Vol] 9.07 10*3/uL Normal 4.00-10.60 [facility] Comment on above: Performed By: #### L [id number] ####[facility] ([facility])[address] [place] [address] OCCULT BLOOD X 1, STOOLon HEMOGLOBIN GASTROINTESTINAL PRESENCE IN STOOL Negative Normal Negative, None Detected [facility] Comment on above: Performed By: #### L [id number] ####[facility] ([facility])[address] [place] [address] 30on 08-04-2024 30 Normal [facility] 30 Normal [facility] BASIC METABOLIC PANELon 05 Anion gap [Moles/Vol] 10 mmol/L Normal 7-20 [facility] Comment on above: Performed By: #### L [id number] ####[facility] [place] [address] Calcium [Mass/Vol] 8.1 mg/dL Low 8.6-10.3 [facility] Comment on above: Performed By: #### L [id number] ####[facility] [place] [address] Chloride [Moles/Vol] 104 mmol/L Normal 98-107 [facility] Comment on above: Performed By: #### L [id number] ####[facility] ([facility])[address] [place] [address] CO2 [Moles/Vol] 29 mmol/L Normal 21-31 [facility] Comment on above: Performed By: #### L [id number] ####[facility] ([facility])[address] [place] [address] Creatinine [Mass/Vol] 0.63 mg/dL Low 0.70-1.30 [facility] Comment on above: Performed By: #### L [id number] ####[facility] ([facility])[address] [place] [address] GLOMERULAR FILTRATION RATE ML/MIN/1.73 SQ M.PREDICTED 95.0 mL/min/1.73m*2 Normal >60.0 [facility] Comment on above: Result Comment: [facility]???s estimated glomerular filtration rate (eGFR) will [...] group of individuals. Performed By: #### L [id number] ####[facility] ([facility])[address] [place] [address] Glucose [Mass/Vol] 129 mg/dL High 70-100 [facility] Comment on above: Performed By: #### L [id number] ####[facility] ([facility])[address] [place] [address] Potassium [Moles/Vol] 3.9 mmol/L Normal 3.5-5.1 [facility] Comment on above: Performed By: #### L [id number] ####[facility] [place] [address] Sodium [Moles/Vol] 139 mmol/L Normal 136-145 [facility] Comment on above: Performed By: #### L [id number] ####[facility] [place] [address] Urea nitrogen [Mass/Vol] 24 mg/dL Normal 7-25 [facility] Comment on above: Performed By: #### L [id number] ####[facility] ([facility])[address] [place] [address] UREA NITROGEN/CREATININE (MASS RATIO) IN SER/PLAS 38.1 Normal [facility] Comment on above: Performed By: #### L [id number] ####[facility] ([facility])[address] [place] [address] MAGNESIUMon 08-04-2024 Magnesium [Mass/Vol] 1.9 mg/dL Normal 1.9-2.7 [facility] Comment on above: Performed By: #### L [id number] ####[facility] ([facility])[address] [place] [address] 30on 08-03-2024 30 Normal [facility] 30 The patient is Moder ately Stable - Low risk of patient condition declining or worsening The patient's goals for the shift include rest/comfort The clinical goals for the shift include vss, safety Normal [facility] BLOOD CULTUREon 08-03-2024 Bacteria identified Cx Nom (Bld) No growth at 5 days Normal [facility] Comment on above: Order Comment: 2 of 2 Performed By: #### L [id number] ####[facility] ([facility])[address] [place] [address] CBC WITH AUTO DIFFERENTIALon 08-03-2024 Erythrocyte distribution width (RBC) [Ratio] 13.1 % Normal 11.5-15.0 [facility] Comment on above: Performed By: #### L [id number] ####[facility] [place] [address] ERYTHROCYTE MEAN CORPUSCULAR HEMOGLOBIN CONCENTRATION (G/DL) BY AUTOMATED 32.0 g/dL Normal 32.0-35.0 [facility] Comment on above: Performed By: #### L [id number] ####[facility] (BEAKER)[address] [place] [address] Hematocrit (Bld) [Volume fraction] 27.8 % Low 39.0-50.0 [facility] Comment on above: Performed By: #### L [id number] ####[facility] (BEAKER)[address] [place] [address] Hemoglobin (Bld) [Mass/Vol] 8.9 g/dL Low 13.0-17.0 [facility] Comment on above: Performed By: #### L [id number] ####[facility] (BEAKER)[address] [place] [address] MCH (RBC) [Entitic mass] 30.0 pg Normal 27.0-33.0 [facility] Comment on above: Performed By: #### L [id number] ####[facility] (BEAKER)[address] [place] [address] MCV (RBC) [Entitic vol] 93.6 fL Normal 82.0-98.0 [facility] Comment on above: Performed By: #### L [id number] ####[facility] (BEAKER)[address] [place] [address] NRBC (PER 100 WBCS) BY AUTOMATED COUNT 0.0 % Normal 0 [facility] Comment on above: Performed By: #### L [id number] ####[facility] (BEAKER)[address] [place] [address] PLATELETS (10*3/UL) IN BLOOD AUTOMATED COUNT 149 10*3/uL Low 150-400 [facility] Comment on above: Performed By: #### L [id number] ####[facility] (BEAKER)[address] [place] [address] RBC (Bld) [#/Vol] 2.97 10*6/uL Low 4.20-5.70 [facility] Comment on above: Performed By: #### L [id number] ####[facility] ([facility])[address] [place] [address] WBC (Bld) [#/Vol] 14.09 10*3/uL High 4.00-10.60 [facility] Comment on above: Performed By: #### L [id number] ####[facility] ([facility])[address] [place] [address] HPon 08-03-2024 HP Normal [facility] LIPID PANELon 08-03-2024 CHOL/HDL 3.7 mg/dL [facility] Comment on above: Performed By: #### L [id number] ####[facility] ([facility])[address] [place] [address] Cholesterol [Mass/Vol] 86 mg/dL Low 120-200 [facility] Comment on above: Performed By: #### L [id number] ####[facility] ([facility])[address] [facility] [address] Magnesium [Mass/Vol] 165 mg/dL High <150 [facility] Comment on above: Result Comment: TRIG LYCERIDE REFERENCE RANGE:20 YEARS AND OLDER CARDIOVASCULAR RISKLESS THAN 150 mg/dL LOW [id number] TO 199 mg/dL BORDERLINE [id number] mg/dL AND GREATER HIGH RISK Performed By: #### L [id number] ####[facility] ([facility])[address] [place] [address] Magnesium [Mass/Vol] 30 mg/dL Normal 0-160 [facility] Comment on above: Performed By: #### L [id number] ####[facility] ([facility])[address] [facility] [place] [address] Magnesium [Mass/Vol] 23 mg/dL Normal 23-92 [facility] Comment on above: Performed By: #### L [id number] ####[facility] [place] [address] NON HDL CHOL. (LDL+VLDL) 63 Normal [facility] Comment on above: Performed By: #### L [id number] ####[facility] ([facility])[address] [place] [address] TOTAL VLDL-C 33 mg/dL Normal 0-40 [facility] Comment on above: Performed By: #### L [id number] ####[facility] ([facility])[address] [place] [address] MANUAL DIFFERENTIALon 2024 BASOPHILS (10*3/UL) IN BLOOD BY CALCULATION 0.01 10*3/uL Normal 0.00-0.20 [facility] Comment on above: Performed By: #### L [id number] ####[facility] ([facility])[address] [place] [address] BASOPHILS/100 LEUKOCYTES IN BLOOD BY AUTOMATED COUNT 0.1 % Normal 0.0-1.0 [facility] Comment on above: Performed By: #### L [id number] ####[facility] ([facility])[address] [facility] [place] [address] EOSINOPHILS (10*3/UL) IN BLOOD BY CALCULATION 0.00 10*3/uL Normal 0.00-0.50 [facility] Comment on above: Performed By: #### L [id number] ####[facility] ([facility])[address] [place] [address] EOSINOPHILS/100 LEUKOCYTES IN BLOOD BY AUTOMATED COUNT 0.0 % Normal 0.0-6.0 [facility] Comment on above: Performed By: #### L [id number] ####[facility] ([facility])[address] [place] [address] IMMATURE GRANULOCYTES (10*3/UL) IN BLOOD BY CALCULATION 0.11 10*3/uL Normal 0.00-0.20 [facility] Comment on above: Performed By: #### L [id number] ####[facility] ([facility])[address] [facility] [address] IMMATURE GRANULOCYTES/100 LEUKOCYTES IN BLOOD BY AUTOMATED COUNT 0.8 % Normal 0.0-1.0 [facility] Comment on above: Performed By: #### L [id number] ####[facility] ([facility])[address] [place] [address] LYMPHOCYTES (10*3/UL) IN BLOOD BY CALCULATION 1.06 10*3/uL Low 1.20-4.00 [facility] Comment on above: Performed By: #### L [id number] ####[facility] ([facility])[address] [place] [address] LYMPHOCYTES/100 LEUKOCYTES IN BLOOD BY AUTOMATED COUNT 7.5 % Low 20.0-45.0 [facility] Comment on above: Performed By: #### L [id number] ####[facility] ([facility])[address] [place] [address] MONOCYTES (10*3/UL) IN BLOOD BY CALCUATION 1.68 10*3/uL High 0.10-1.00 [facility] Comment on above: Performed By: #### L [id number] ####[facility] ([facility])[address] [place] [address] MONOCYTES/100 LEUKOCYTES IN BLOOD BY AUTOMATED COUNT 11.9 % Normal 5.0-12.0 [facility] Comment on above: Performed By: #### L [id number] ####[facility] ([facility])[address] [place] [address] NEUTROPHILS (10*3/UL) IN BLOOD BY CALCULATION 11.2 10*3/uL High 1.6-7.6 [facility] Comment on above: Performed By: #### L [id number] ####[facility] ([facility])[address] [place] [address] NEUTROPHILS/100 LEUKOCYTES IN BLOOD BY AUTOMATED COUNT 79.7 % High 40.0-72.0 [facility] Comment on above: Performed By: #### L [id number] ####[facility] ([facility])[address] [place] [address] NURSNOTEon 08-03-2024 NURSNOTE Normal [facility] NURSNOTE Normal [facility] URINALYSIS MICROSCOPIC WITH REFLEX CULTUREon 08-03-2024 MUCUS (#/LPF) IN URINE SEDIMENT Occasional Normal None Seen, Occasional , Few [facility] Comment on above: Performed By: #### L [id number] ####[facility] [place] [address] RBC (#/HPF) IN URINE SEDIMENT >20 Abnormal None Seen, 0-2 [facility] Comment on above: Performed By: #### L [id number] ####[facility] ([facility])[address] [place] [address] SQUAMOUS EPITHELIAL CELLS (#/LPF) IN URINE SEDIMENT Occasional Normal None Seen, Occasional , Few [facility] Comment on above: Performed By: #### L [id number] ####[facility] ([facility])[address] [place] [address] WBC (LEUKOCYTE) (#/HPF) IN URINE SEDIMENT 11-20 Abnormal None Seen, 0-2 [facility] Comment on above: Performed By: #### L [id number] ####[facility] ([facility])[address] [place] [address] URINALYSIS WITH REFLEX CULTU REon 08-03-2024 BILIRUBIN, TOTAL PRESENCE IN URINE Negative Normal Negative [facility] Comment on above: Performed By: #### L [id number] ####[facility] ([facility])[address] [place] [address] Clarity (U) Clear Normal Clear [facility] Comment on above: Performed By: #### L [id number] ####[facility] [place] [address] Color (U) Yellow Normal Colorless, Yellow, Light-[place] ow [facility] Comment on above: Performed By: #### L [id number] ####[facility] ([facility])[address] [place] [address] GLUCOSE (MG/DL) IN URINE Normal Normal Normal [facility] Comment on above: Performed By: #### L [id number] ####[facility] ([facility])[address] [place] [address] HEMOGLOBIN PRESENCE IN URINE Large Abnormal Negative [facility] Comment on above: Performed By: #### L [id number] ####[facility] ([facility])[address] [place] [address] Ketones Ql (U) Negative Normal Negative [facility] Comment on above: Performed By: #### L [id number] ####[facility] ([facility])[address] [place] [address] LEUKOCYTE ESTERASE PRESENCE IN URINE BY TEST STRIP Moderate Abnormal Negative [facility] Comment on above: Performed By: #### L [id number] ####[facility] ([facility])[address] [place] [address] NITRITE PRESENCE IN URINE Negative Normal Negative [facility] Comment on above: Performed By: #### L [id number] ####[facility] ([facility])[address] [place] [address] pH (U) 5.5 [pH] Normal 5.0-8.0 [facility] Comment on above: Performed By: #### L [id number] ####[facility] ([facility])[address] [place] [address] Protein (U) [Mass/Vol] Negative Normal Negative [facility] Comment on above: Performed By: #### L [id number] ####[facility] ([facility])[address] [place] [address] Specific gravity (U) [Rel density] 1.030 Normal 1.010-1.03 0 [facility] Comment on above: Performed By: #### L [id number] ####[facility] ([facility])[address] [place] [address] UROBILINOGEN (MG/DL) IN URINE Normal Normal Normal [facility] Comment on above: Performed By: #### L [id number] ####[facility] ([facility])[address] [place] [address] URINE CULTURE, ROUTINEon Bacteria identified Cx Nom (U) No growth at 48 hours Normal [facility] Comment on above: Performed By: #### L [id number] ####[facility] (BEAKER)[address] [place] [address] 30on 08-02-2024 30 Normal [facility] 30 Normal [facility] 30 Normal [facility] BASIC METABOLIC PANELon 07-07 Anion gap [Moles/Vol] 9 mmol/L Normal 7-20 [facility] Comment on above: Performed By: #### L [id number] ####[facility] ([facility])[address] [place] [address] Calcium [Mass/Vol] 7.8 mg/dL Low 8.6-10.3 [facility] Comment on above: Performed By: #### L [id number] ####[facility] (BEAKER)[address] [place] [address] Chloride [Moles/Vol] 105 mmol/L Normal 98-107 [facility] Comment on above: Performed By: #### L [id number] ####[facility] (BEAKER)[address] [place] [address] CO2 [Moles/Vol] 26 mmol/L Normal 21-31 [facility] Comment on above: Performed By: #### L [id number] ####[facility] (BEAKER)[address] [place] [address] Creatinine [Mass/Vol] 0.96 mg/dL Normal 0.70-1.30 [facility] Comment on above: Performed By: #### L [id number] ####[facility] (BEAKER)[address] [place] [address] GLOMERULAR FILTRATION RATE ML/MIN/1.73 SQ M.PREDICTED 78.9 mL/min/1.73m*2 Normal >60.0 [facility] Comment on above: Result Comment: [facility]???s estimated glomerular filtration rate (eGFR) will [...] group of individuals. Performed By: #### L [id number] ####[facility] ([facility])[address] [facility] [address] Glucose [Mass/Vol] 135 mg/dL High 70-100 [facility] Comment on above: Performed By: #### L [id number] ####[facility] ([facility])[address] [place] [address] Potassium [Moles/Vol] 4.3 mmol/L Normal 3.5-5.[address] [facility] Comment on above: Performed By: #### L [id number] ####[facility] ([facility])[address] [facility] [place] [address] Sodium [Moles/Vol] 136 mmol/L Normal 136-145 [facility] Comment on above: Performed By: #### L [id number] ####[facility] ([facility])[address] [facility] [place] [address] Urea nitrogen [Mass/Vol] 24 mg/dL Normal 7-25 [facility] Comment on above: Performed By: #### L [id number] ####[facility] ([facility])[address] [facility] [address] UREA NITROGEN/CREATININE (MASS RATIO) IN SER/PLAS 25.0 Normal [facility] Comment on above: Performed By: #### L [id number] ####[facility] ([facility])[address] [facility] [place] [address] CBCon 08-02-2024 Erythrocyte distribution width (RBC) [Ratio] 13.1 % Normal 11.5-15.0 [facility] Comment on above: Performed By: #### L [id number] ####[facility] ([facility])[address] [place] [address] ERYTHROCYTE MEAN CORPUSCULAR HEMOGLOBIN CONCENTRATION (G/DL) BY AUTOMATED 32.1 g/dL Normal 32.0-35.0 [facility] Comment on above: Performed By: #### L [id number] ####[facility] (BEAKER)[address] [place], [place] [address] Hematocrit (Bld) [Volume fraction] 27.1 % Low 39.0-50.0 [facility] Comment on above: Performed By: #### L [id number] ####[facility] (BEAKER)[address] [place] [address] Hemoglobin (Bld) [Mass/Vol] 8.7 g/dL Low 13.0-17.0 [facility] Comment on above: Performed By: #### L [id number] ####[facility] (BEAKER)[address] [place] [address] MCH (RBC) [Entitic mass] 29.8 pg Normal 27.0-33.0 [facility] Comment on above: Performed By: #### L [id number] ####[facility] (BEAKER)[address] [place] [address] MCV (RBC) [Entitic vol] 92.8 fL Normal 82.0-98.0 [facility] Comment on above: Performed By: #### L [id number] ####[facility] (BEAKER)[address] [place] [address] PLATELETS (10*3/UL) IN BLOOD AUTOMATED COUNT 195 10*3/uL Normal 150-400 [facility] Comment on above: Performed By: #### L [id number] ####[facility] (BEAKER)[address] [place] [address] RBC (Bld) [#/Vol] 2.92 10*6/uL Low 4.20-5.70 [facility] Comment on above: Performed By: #### L [id number] ####[facility] (BEAKER)[address] [place] [address] WBC (Bld) [#/Vol] 22.16 10*3/uL High 4.00-10.60 [facility] Comment on above: Performed By: #### L [id number] ####[facility] [place] [address] Erythrocyte distribution width (RBC) [Ratio] 12.9 % Normal 11.5-15.0 [facility] Comment on above: Performed By: #### L [id number] ####[facility] ([facility])[address] [place] [address] ERYTHROCYTE MEAN CORPUSCULAR HEMOGLOBIN CONCENTRATION (G/DL) BY AUTOMATED 33.1 g/dL Normal 32.0-35.0 [facility] Comment on above: Performed By: #### L [id number] ####[facility] ([facility])[address] [place] [address] Hematocrit (Bld) [Volume fraction] 27.2 % Low 39.0-50.0 [facility] Comment on above: Performed By: #### L [id number] ####[facility] ([facility])[address] [place] [address] Hemoglobin (Bld) [Mass/Vol] 9.0 g/dL Low 13.0-17.0 [facility] Comment on above: Performed By: #### L [id number] ####[facility] ([facility])[address] [place] [address] MCH (RBC) [Entitic mass] 30.2 pg Normal 27.0-33.0 [facility] Comment on above: Performed By: #### L [id number] ####[facility] ([facility])[address] [place] [address] Performed By: #### L [id number] ####[facility] [place] [address] MCV (RBC) [Entitic vol] 91.3 fL Normal 82.0-98.0 [facility] Comment on above: Performed By: #### L [id number] ####[facility] ([facility])[address] [place] [address] PLATELETS (10*3/UL) IN BLOOD AUTOMATED COUNT 193 10*3/uL Normal 150-400 [facility] Comment on above: Performed By: #### L [id number] ####[facility] ([facility])[address] [place] [address] RBC (Bld) [#/Vol] 2.98 10*6/uL Low 4.20-5.70 [facility] Comment on above: Performed By: #### L [id number] ####[facility] ([facility])[address] [address] WBC (Bld) [#/Vol] 25.71 10*3/uL High 4.00-10.60 [facility] Comment on above: Performed By: #### L [id number] ####[facility] ([facility])[address] [place] [address] FL ESOPHAGUS BARIUM SWALLOW WITH VIDEO AND SPEECHon 08-02-2024 FL ESOPHAGUS BARIUM SWALLOW WITH VIDEO AND SPEECH Normal [facility] NURSNOTEon 08-02-2024 NURSNOTE Normal [facility] ANESon 08-01-2024 ANES Normal [facility] ANES Normal [facility] APTTon 08-01-2024 ACTIVATED PARTIAL THROMBOPLASTIN TIME IN PPP BY COAGULATION ASSAY 40.3 Seconds High 25.0-35.0 [facility] Comment on above: Result Comment: Clin ical significance of the APTT is questionable in the presence of heparin. 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 By: #### L [id number] ####[facility] RESPIR[facility] [id number] [place] [address] [facility] CO2 (Bld) [Partial pressure] 34 mm[Hg] Low 35-48 [facility] Comment on above: 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 By: #### L [id number] ####[facility] RESPIRATORY [id number] [place] [address] [facility] HCO3 (Bld) [Moles/Vol] 24.2 mmol/L Normal 21.0-28.0 [facility] Comment on above: 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 By: #### L [id number] ####[facility] RESPIRATORY [id number] [place] [address] [facility] Oxygen (Bld) [Partial pressure] 300 mm[Hg] High 83-100 [facility] Comment on above: 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 Performed By: #### L [id number] ####[facility] RESPIRATORY [id number] [place] [address] [facility] OXYGEN SATURATION (%) IN ARTERIAL BLOOD 98.9 % High 94.0-98.0 [facility] Comment on above: 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)[address] [place] [address] Calcium [Mass/Vol] 7.8 mg/dL Low 8.6-10.3 [facility] Comment on above: Performed By: #### L [id number] ####[facility] ([facility])[address] [place] [address] Chloride [Moles/Vol] 106 mmol/L Normal 98-107 [facility] Comment on above: Performed By: #### L [id number] ####[facility] ([facility])[address] [place] [address] CO2 [Moles/Vol] 24 mmol/L Normal 21-31 [facility] Comment on above: Performed By: #### L [id number] ####[facility] ([facility])[address] [place] [address] Creatinine [Mass/Vol] 0.63 mg/dL Low 0.70-1.30 [facility] Comment on above: Performed By: #### L [id number] ####[facility] ([facility])[address] [place] [address] GLOMERULAR FILTRATION RATE ML/MIN/1.73 SQ M.PREDICTED 95.0 mL/min/1.73m*2 Normal >60.0 [facility] Comment on above: Result Comment: [facility]???s estimated glomerular filtration rate (eGFR) will [...] group of individuals. Performed By: #### L [id number] ####[facility] ([facility])[address] [place] [address] Glucose [Mass/Vol] 160 mg/dL High 70-100 [facility] Comment on above: Performed By: #### L [id number] ####[facility] ([facility])[address] [place] [address] Potassium [Moles/Vol] 4.1 mmol/L Normal 3.5-5.[address] [facility] Comment on above: Performed By: #### L [id number] ####[facility] ([facility])[address] [place] [address] Sodium [Moles/Vol] 136 mmol/L Normal 136-145 [facility] Comment on above: Performed By: #### L [id number] ####[facility] ([facility])[address] [place] [address] Urea nitrogen [Mass/Vol] 16 mg/dL Normal 7-25 [facility] Comment on above: Performed By: #### L [id number] ####[facility] ([facility])[address] [place] [address] UREA NITROGEN/CREATININE (MASS RATIO) IN SER/PLAS 25.4 Normal [facility] Comment on above: Performed By: #### L [id number] ####[facility] ([facility])[address] [place] [address] CBC WITH AUTO DIFFERENTIALon 08-01-2024 Basophils (Bld) [#/Vol] 0.01 10*3/uL Normal 0.00-0.20 [facility] Comment on above: Performed By: #### L [id number] ####[facility] ([facility])[address] [place] [address] Basophils/100 WBC (Bld) 0.1 % Normal 0.0-1.0 [facility] Comment on above: Performed By: #### L [id number] ####[facility] ([facility])[address] [place] [address] Eosinophils (Bld) [#/Vol] 0.00 10*3/uL Normal 0.00-0.50 [facility] Comment on above: Performed By: #### L [id number] ####[facility] [place] [address] Eosinophils/100 WBC (Bld) 0.0 % Normal 0.0-6.0 [facility] Comment on above: Performed By: #### L [id number] ####[facility] ([facility])[address] [place] [address] Erythrocyte distribution width (RBC) [Ratio] 12.8 % Normal 11.5-15.0 [facility] Comment on above: Performed By: #### L [id number] ####[facility] ([facility])[address] [place] [address] ERYTHROCYTE MEAN CORPUSCULAR HEMOGLOBIN CONCENTRATION (G/DL) BY AUTOMATED 32.8 g/dL Normal 32.0-35.0 [facility] Comment on above: Performed By: #### L [id number] ####[facility] [place] [address] Hematocrit (Bld) [Volume fraction] 28.7 % Low 39.0-50.0 [facility] Comment on above: Performed By: #### L [id number] ####[facility] ([facility])[address] [place] [address] Hemoglobin (Bld) [Mass/Vol] 9.4 g/dL Low 13.0-17.0 [facility] Comment on above: Performed By: #### L [id number] ####[facility] [place] [address] Immature granulocytes (Bld) [#/Vol] 0.21 10*3/uL High 0.00-0.20 [facility] Comment on above: Performed By: #### L [id number] ####[facility] ([facility])[address] [place] [address] Immature granulocytes/100 WBC (Bld) 2.1 % High 0.0-1.0 [facility] Comment on above: Performed By: #### L [id number] ####[facility] ([facility])[address] [place] [address] Lymphocytes (Bld) [#/Vol] 0.68 10*3/uL Low 1.20-4.00 [facility] Comment on above: Performed By: #### L [id number] ####[facility] [place] [address] Lymphocytes/100 WBC (Bld) 6.9 % Low 20.0-45.0 [facility] Comment on above: Performed By: #### L [id number] ####[facility] [place] [address] MCV (RBC) [Entitic vol] 92.3 fL Normal 82.0-98.0 [facility] Comment on above: Performed By: #### L [id number] ####[facility] [place] [address] Monocytes (Bld) [#/Vol] 0.57 10*3/uL Normal 0.10-1.00 [facility] Comment on above: Performed By: #### L [id number] ####[facility] [place] [address] Monocytes/100 WBC (Bld) 5.7 % Normal 5.0-12.0 [facility] Comment on above: Performed By: #### L [id number] ####[facility] ([facility])[address] [place] [address] Neutrophils (Bld) [#/Vol] 8.45 10*3/uL High 1.60-7.60 [facility] Comment on above: Performed By: #### L [id number] ####[facility] ([facility])[address] [place] [address] Neutrophils/100 WBC (Bld) 85.2 % High 40.0-72.0 [facility] Comment on above: Performed By: #### L [id number] ####[facility] ([facility])[address] [place] [address] NRBC (PER 100 WBCS) BY AUTOMATED COUNT 0.0 % Normal 0 [facility] Comment on above: Performed By: #### L [id number] ####[facility] ([facility])[address] [place] [address] PLATELETS (10*3/UL) IN BLOOD AUTOMATED COUNT 161 10*3/uL Normal 150-400 [facility] Comment on above: Performed By: #### L [id number] ####[facility] ([facility])[address] [place] [address] RBC (Bld) [#/Vol] 3.11 10*6/uL Low 4.20-5.70 [facility] Comment on above: Performed By: #### L [id number] ####[facility] ([facility])[address] [place] [address] WBC (Bld) [#/Vol] 9.92 10*3/uL Normal 4.00-10.60 [facility] Comment on above: Performed By: #### L [id number] ####[facility] ([facility])[address] [place] [address] HPon 08-01-2024 HP H&P reviewed. The cora cee was examined and there are no changes to the H&P. [facility] MAGNESIUMon 08-01-2024 Magnesium [Mass/Vol] 1.7 mg/dL Low 1.9-2.7 [facility] Comment on above: Performed By: #### L [id number] ####[facility] ([facility])[address] [place] [address] OPNOTEon 08-01-2024 OPNOTE Normal [facility] PHOSPHORUSon 08-01-2024 Magnesium [Mass/Vol] 3.5 mg/dL Normal 2.5-5.0 [facility] Comment on above: Performed By: #### L [id number] ####[facility] ([facility])[address] [place] [address] POCT GLUCOSE METER UNSOLICIT ED RESULTSon 08-01-2024 Glucose [Mass/Vol] 174 mg/dL High 70-105 [facility] Comment on above: Order Comment: Waive d Testing in the ED is performed under the ED CLIA certificate #[id number]. Result Comment: [email or web address] Performed By: #### L [id number] ####[facility] ([facility])[address] [place] [address] Glucose [Mass/Vol] 166 mg/dL High 70-105 [facility] Comment on above: Order Comment: Waive d Testing in the ED is performed under the ED CLIA certificate #[id number]. Result Comment: [email or web address] Performed By: #### L [id number] ####[facility] ([facility])[address] [place] [address] PROTIME-INRon 08-01-2024 INR IN PPP BY COAGULATION ASSAY 1.35 High 0.90-1.10 [facility] Comment on above: Result Comment: ACCC P RECOMMENDED INR FOR WARFARIN THERAPY CONDITION INRPROPHYLAXIS OF VENOUS THROMBOSIS 2-3(HIGH-RISK SURGERY)TREATMENT OF VENOUS THROMBOSIS 2-3TREATMENT OF PULMONARY EMBOLISM 2-3PREVENTION OF SYSTEMIC EMBOLISM: 2-3 ACUTE MYOCARDIAL INFARCTION TISSUE HEART VALVES VALVULAR HEART DISEASE ATRIAL FIBRILLATION RECURRENT SYSTEMIC EMBOLISMMECHANICAL HEART VALVE 2.5-3.5 FROM: ORAL ANTICOAGULANTS. MECHANISM OF ACTION, CLINICAL EFFECTIVENESS, AND OPTIMAL THERAPEUTIC RANGE. CHEST 1995;108:231S-246S. Performed By: #### L [id number] ####[facility] (BEAKER)[address] [facility] [address] PROTHROMBIN TIME (PT) IN PPP BY COAGULATION ASSAY 16.6 Seconds High 12.3-14.8 [facility] Comment on above: Performed By: #### L [id number] ####[facility] (BE[facility]ER)[address] [place] [address] TYPE AND SCREENon 08-01-2024 AB SCREEN Negative Normal [facility] Comment on above: Performed By: #### L [id number] ####[facility] BLOOD B[facility], ABO group Nom (Bld) A Normal [facility] Comment on above: Performed By: #### L [id number] ####[facility], RH TYPE IN BLOOD Positive Normal [facility] Comment on above: Performed By: #### L [id number] ####[facility], Orders Onlyon 07-27-2024 Orders Only Normal [facility] Orders Onlyon 07-26-2024 Orders Only Normal [facility] Basophils Auto (Bld) [#/Vol] on 07-18-2024 Basophils (Bld) [#/Vol] Automated basophil count 0.0-0.[address] [facility] Basophils/100 WBC Auto (Bld) on 07-18-2024 Basophils/100 WBC (Bld) Automated basophil % 0.2-2.0 [facility] Eosinophils/100 WBC Auto (Bl d)on 07-18-2024 Eosinophils/100 WBC (Bld) Automated eosinophil % 0.9-7.0 [facility] Erythrocyte distribution wid th Auto (RBC) [Ratio]on 07-18-2024 Erythrocyte distribution width (RBC) [Ratio] Erythrocyte distribution width [Ratio] by Automated count 11.0-15.0 [facility] Estimated glomerular filtrat ion rate (GFR) non- Americanon 07-18-2024 GFR/1.73 sq M.predicted among non-blacks MDRD (S/P/Bld) [Vol rate/Area] Estimated glomerular filtration rate (GFR) non- >=60 mL/min/1.7 3m 2 [facility] Hematocrit Auto (Bld) [Volum e fraction]on 07-18-2024 Hematocrit (Bld) [Volume fraction] Hematocrit [Volume Fraction] of Blood by Automated count Low 42.0-54.0 [facility] Hemoglobin [Mass/volume] in Bloodon 07-18-2024 Hemoglobin (Bld) [Mass/Vol] Hemoglobin [Mass/volume] in Blood Low 14.0-18.0 [facility] Laboratory - Chemistry and C hemistry - challengeon 07-18-2024 Calcium [Mass/Vol] 8.9 mg/dL 8.5-10.1 [facility] Chloride [Moles/Vol] 103 mmol/L 98-107 [facility] CO2 [Moles/Vol] 29.3 mmol/L 21.0-32.0 [facility] Creatinine [Mass/Vol] 1.00 mg/dL 0.70-1.30 [facility] GFR/1.73 sq M.predicted MDRD (S/P/Bld) [Vol rate/Area] mL/min/{1.73_m2} >=60 mL/min/1.7 3m 2 [facility] Glucose [Mass/Vol] 129 mg/dL High 74-106 [facility] Potassium [Moles/Vol] 4.4 mmol/L 3.5-5.1 [facility] Sodium [Moles/Vol] 138 mmol/L 136-145 [facility] Urea nitrogen [Mass/Vol] 18.0 mg/dL 7.0-18.0 [facility] Urea nitrogen/Creatinine [Mass ratio] 18.0 mg/mg [facility] Laboratory - Hematology and Cell countson 07-18-2024 Immature granulocytes/100 WBC (Bld) 0.3 % 0.0-0.5 [facility] Leukocytes [#/volume] correc shyann for nucleated erythrocytes in Blood by Automated counon 07-18-2024 WBC corrected for nucl RBC Auto (Bld) [#/Vol] Leukocytes [#/volume] corrected for nucleated erythrocytes in Blood by Automated coun 4.0-11.0 [facility] Lymphocytes Auto (Bld) [#/Vo l]on 07-18-2024 Lymphocytes (Bld) [#/Vol] Lymphocytes [#/volume] in Blood by Automated count 1.2-3.8 [facility] Lymphocytes/100 WBC Auto (Bl d)on 07-18-2024 Lymphocytes/100 WBC (Bld) Lymphocytes/100 leukocytes in Blood by Automated count Low 20.5-60.0 [facility] MCH Auto (RBC) [Entitic mass ]on 07-18-2024 MCH (RBC) [Entitic mass] MCH [Entitic mass] by Automated count 25.9-34.0 [facility] MCHC Auto (RBC) [Mass/Vol]on 07-18-2024 MCHC (RBC) [Mass/Vol] MCHC [Mass/volume] by Automated count 29.9-35.2 [facility] MCV Auto (RBC) [Entitic vol] on 07-18-2024 MCV (RBC) [Entitic vol] MCV [Entitic volume] by Automated count High 80.0-94.0 [facility] Monocytes Auto (Bld) [#/Vol] on 07-18-2024 Monocytes (Bld) [#/Vol] Automated blood monocyte count High 0.3-0.8 [facility] Monocytes/100 WBC Auto (Bld) on 07-18-2024 Monocytes/100 WBC (Bld) Automated monocyte % High 1.7-12.0 [facility] Neutrophils Auto (Bld) [#/Vo l]on 07-18-2024 Neutrophils (Bld) [#/Vol] Neutrophils [#/volume] in Blood by Automated count 1.4-6.5 [facility] Neutrophils/100 WBC Auto (Bl d)on 07-18-2024 Neutrophils/100 WBC (Bld) Automated neutrophil % 43.0-75.0 [facility] No Panel Informationon 07-18 Eosinophils # (Auto) 0.1 10 3/uL 0.0-0.7 [facility] Immature Granulocyte # (Auto) 0.02 10 3/uL 0.00-0.03 [facility] Platelet mean volume Auto (B ld) [Entitic vol]on 07-18-2024 Platelet mean volume (Bld) [Entitic vol] Platelet mean volume [Entitic volume] in Blood by Automated count 9.-.5 [facility] Platelets Auto (Bld) [#/Vol] on 07-18-2024 Platelets (Bld) [#/Vol] Platelets [#/volume] in Blood by Automated count 150-450 [facility] RBC Auto (Bld) [#/Vol]on RBC (Bld) [#/Vol] Erythrocytes [#/volu me] in Blood by Automated count Low 4.70-6.10 [facility] Serum or plasma anion gap de terminationon 07-18-2024 Anion gap [Moles/Vol] Serum or plasma an ion gap determination [facility] HPon 07-10-2024 HP Normal [facility] Orders Onlyon 07-04-2024 Orders Only Normal [facility] BASIC METABOLIC PANELon 06-07 Anion gap [Moles/Vol] 9 mmol/L Normal 7-20 [facility] Comment on above: Performed By: #### L [id number] ####[facility] ([facility]AKER)[address] [place] [address] Calcium [Mass/Vol] 7.8 mg/dL Low 8.6-10.3 [facility] Comment on above: Performed By: #### L [id number] ####[facility] (BEAKER)[address] [place] [address] Chloride [Moles/Vol] 103 mmol/L Normal 98-107 [facility] Comment on above: Performed By: #### L [id number] ####[facility] ([facility]ER)[address] [place] [address] CO2 [Moles/Vol] 24 mmol/L Normal 21-31 [facility] Comment on above: Performed By: #### L [id number] ####[facility] (BEAKER)[address] [place] [address] Creatinine [Mass/Vol] 0.73 mg/dL Normal 0.70-1.30 [facility] Comment on above: Performed By: #### L [id number] ####[facility] (BEAKER)[address] [place] [address] GLOMERULAR FILTRATION RATE ML/MIN/1.73 SQ M.PREDICTED 90.8 mL/min/1.73m*2 Normal >60.0 [facility] Comment on above: Result Comment: [facility]???s estimated glomerular filtration rate (eGFR) will [...] group of individuals. Performed By: #### L [id number] ####[facility] ([facility])[address] [place] [address] Glucose [Mass/Vol] 93 mg/dL Normal 70-100 [facility] Comment on above: Performed By: #### L [id number] ####[facility] ([facility])[address] [place] [address] Potassium [Moles/Vol] 3.9 mmol/L Normal 3.5-5.1 [facility] Comment on above: Performed By: #### L [id number] ####[facility] ([facility])[address] [place] [address] Sodium [Moles/Vol] 132 mmol/L Low 136-145 [facility] Comment on above: Performed By: #### L [id number] ####[facility] [place] [address] Urea nitrogen [Mass/Vol] 22 mg/dL Normal 7-25 [facility] Comment on above: Performed By: #### L [id number] ####[facility] ([facility])[address] [place] [address] UREA NITROGEN/CREATININE (MASS RATIO) IN SER/PLAS 30.1 Normal [facility] Comment on above: Performed By: #### L [id number] ####[facility] [place] [address] CBCon 06-30-2024 Erythrocyte distribution width (RBC) [Ratio] 12.7 % Normal 11.5-15.0 [facility] Comment on above: Performed By: #### L [id number] ####[facility] ([facility])[address] [place] [address] ERYTHROCYTE MEAN CORPUSCULAR HEMOGLOBIN CONCENTRATION (G/DL) BY AUTOMATED 32.1 g/dL Normal 32.0-35.0 [facility] Comment on above: Performed By: #### L [id number] ####[facility] ([facility])[address] [place] [address] Hematocrit (Bld) [Volume fraction] 29.0 % Low 39.0-50.0 [facility] Comment on above: Performed By: #### L [id number] ####[facility] ([facility])[address] [place] [id number] Hemoglobin (Bld) [Mass/Vol] 9.3 g/dL Low 13.0-17.0 [facility] Comment on above: Performed By: #### L [id number] ####[facility] ([facility])[address] [place] [address] MCH (RBC) [Entitic mass] 29.9 pg Normal 27.0-33.0 [facility] Comment on above: Performed By: #### L [id number] ####[facility] ([facility])[address] [place] [address] MCV (RBC) [Entitic vol] 93.2 fL Normal 82.0-98.0 [facility] Comment on above: Performed By: #### L [id number] ####[facility] [place] [address] PLATELETS (10*3/UL) IN BLOOD AUTOMATED COUNT 161 10*3/uL Normal 150-400 [facility] Comment on above: Performed By: #### L [id number] ####[facility] (BEAKER)[address] [place] [address] RBC (Bld) [#/Vol] 3.11 10*6/uL Low 4.20-5.70 [facility] Comment on above: Performed By: #### L [id number] ####[facility] (BEAKER)[address] [place] [address] WBC (Bld) [#/Vol] 6.53 10*3/uL Normal 4.00-10.60 [facility] Comment on above: Performed By: #### L [id number] ####[facility] ([facility])[address] [place] [address] DSon 06-30-2024 DS Normal [facility] 30on 06-29-2024 30 Normal [facility] ANESon 06-29-2024 ANES Normal [facility] ANES [facility] BASIC METABOLIC PANELon 06-07 Anion gap [Moles/Vol] 8 mmol/L Normal 7-20 [facility] Comment on above: Performed By: #### L [id number] ####[facility] [place] [address] Calcium [Mass/Vol] 8.1 mg/dL Low 8.6-10.3 [facility] Comment on above: Performed By: #### L [id number] ####[facility] (BEAKER)[address] [place] [address] Chloride [Moles/Vol] 104 mmol/L Normal 98-107 [facility] Comment on above: Performed By: #### L [id number] ####[facility] (BEAKER)[address] [place] [address] CO2 [Moles/Vol] 25 mmol/L Normal 21-31 [facility] Comment on above: Performed By: #### L [id number] ####[facility] ([facility]ER)[address] [place] [address] Creatinine [Mass/Vol] 0.73 mg/dL Normal 0.70-1.30 [facility] Comment on above: Performed By: #### L [id number] ####[facility] ([facility])[address] [address] GLOMERULAR FILTRATION RATE ML/MIN/1.73 SQ M.PREDICTED 90.8 mL/min/1.73m*2 Normal >60.0 [facility] Comment on above: Result Comment: [facility]???s estimated glomerular filtration rate (eGFR) will [...] group of individuals. Performed By: #### L [id number] ####[facility] ([facility])[address] [place] [address] Glucose [Mass/Vol] 95 mg/dL Normal 70-100 [facility] Comment on above: Performed By: #### L [id number] ####[facility] ([facility])[address] [place] [address] Potassium [Moles/Vol] 4.2 mmol/L Normal 3.5-5.1 [facility] Comment on above: Performed By: #### L [id number] ####[facility] ([facility])[address] [place] [address] Sodium [Moles/Vol] 133 mmol/L Low 136-145 [facility] Comment on above: Performed By: #### L [id number] ####[facility] ([facility])[address] [place] [address] Urea nitrogen [Mass/Vol] 29 mg/dL High 7-25 [facility] Comment on above: Performed By: #### L [id number] ####[facility] [place] [address] UREA NITROGEN/CREATININE (MASS RATIO) IN SER/PLAS 39.7 Normal [facility] Comment on above: Performed By: #### L [id number] ####[facility] ([facility])[address] [address] CBCon 06-29-2024 Erythrocyte distribution width (RBC) [Ratio] 13.0 % Normal 11.5-15.0 [facility] Comment on above: Performed By: #### L [id number] ####[facility] ([facility])[address] [place] [address] ERYTHROCYTE MEAN CORPUSCULAR HEMOGLOBIN CONCENTRATION (G/DL) BY AUTOMATED 32.1 g/dL Normal 32.0-35.0 [facility] Comment on above: Performed By: #### L [id number] ####[facility] ([facility])[address] [place] [address] Hematocrit (Bld) [Volume fraction] 31.2 % Low 39.0-50.0 [facility] Comment on above: Performed By: #### L [id number] ####[facility] ([facility])[address] [place] [address] Hemoglobin (Bld) [Mass/Vol] 10.0 g/dL Low 13.0-17.0 [facility] Comment on above: Performed By: #### L [id number] ####[facility] ([facility])[address] [place] [address] MCH (RBC) [Entitic mass] 29.5 pg Normal 27.0-33.0 [facility] Comment on above: Performed By: #### L [id number] ####[facility] ([facility])[address] [place] [address] MCV (RBC) [Entitic vol] 92.0 fL Normal 82.0-98.0 [facility] Comment on above: Performed By: #### L [id number] ####[facility] ([facility])[address] [place] [address] PLATELETS (10*3/UL) IN BLOOD AUTOMATED COUNT 164 10*3/uL Normal 150-400 [facility] Comment on above: Performed By: #### L [id number] ####[facility] ([facility])[address] [address] RBC (Bld) [#/Vol] 3.39 10*6/uL Low 4.20-5.70 [facility] Comment on above: Performed By: #### L [id number] ####[facility] ([facility])[address] [address] WBC (Bld) [#/Vol] 8.52 10*3/uL Normal 4.00-10.60 [facility] Comment on above: Performed By: #### L [id number] ####[facility] ([facility])[address] [address] FERRITINon 06-29-2024 FERRITIN (NG/ML) IN SER/PLAS 168.0 ng/mL Normal 24.0-336.0 [facility] Comment on above: Performed By: #### L [id number] ####[facility] ([facility])[address] [address] FOLATEon 06-29-2024 FOLATE (NG/ML) IN SER/PLAS 7.77 ng/mL Normal 6.6-1000 [facility] Comment on above: Performed By: #### L [id number] ####[facility] ([facility])[address] [place] [address] HEMOGLOBIN AND HEMATOCRIT, B LOODon 06-29-2024 Hematocrit (Bld) [Volume fraction] 27.7 % Low 39.0-50.0 [facility] Comment on above: Performed By: #### L [id number] ####[facility] ([facility])[address] [address] Hemoglobin (Bld) [Mass/Vol] 8.9 g/dL Low 13.0-17.0 [facility] Comment on above: Performed By: #### L [id number] ####[facility] (BEAKER)[address] [place] [address] Hematocrit (Bld) [Volume fraction] 33.7 % Low 39.0-50.0 [facility] Comment on above: Performed By: #### L [id number] ####[facility] (BEAKER)[address] [place] [address] Hemoglobin (Bld) [Mass/Vol] 10.7 g/dL Low 13.0-17.0 [facility] Comment on above: Performed By: #### L [id number] ####[facility] (BEAKER)[address] [place] [address] Hematocrit (Bld) [Volume fraction] 32.4 % Low 39.0-50.0 [facility] Comment on above: Performed By: #### L [id number] ####[facility] (BEAKER)[address] [place] [address] Hemoglobin (Bld) [Mass/Vol] 10.6 g/dL Low 13.0-17.0 [facility] Comment on above: Performed By: #### L [id number] ####[facility] (AKER)[address] [place] [address] IRON AND TIBCon 06-29-2024 IRON (UG/DL) IN SER/PLAS 40 ug/dL Low 50-212 [facility] Comment on above: Performed By: #### L [id number] ####[facility] (BEAKER)[address] [place] [address] IRON BINDING CAPACITY (UG/DL) IN SER/PLAS 227 ug/dL Low 250-450 [facility] Comment on above: Performed By: #### L [id number] ####[facility] (BEAKER)[address] [place] [address] IRON BINDING CAPACITY.UNSATURATED (UG/DL) IN SER/PLAS 187.0 ug/dL Normal 155.0-355. 0 [facility] Comment on above: Performed By: #### L [id number] ####[facility] (BEAKER)[address] [place] [address] IRON SATURATION (%) IN SER/PLAS 18 % Low 20-50 [facility] Comment on above: Performed By: #### L [id number] ####[facility] ([facility])[address] [place] [address] TRANSFERRINon 06-29-2024 Magnesium [Mass/Vol] 195 mg/dL Normal 168-348 [facility] Comment on above: Performed By: #### L [id number] ####[facility] ([facility])[address] [place] [address] VITAMIN B12on 06-29-2024 Cobalamin (Vitamin B12) [Mass/Vol] 373 pg/mL Normal 180-914 [facility] Comment on above: Result Comment: REFE RENCE RANGES:180-914 pg/mL [id number] pg/mL Indeterminate<145 pg/mL Deficient Performed By: #### L [id number] ####[facility] ([facility])[address] [place] [address] 30on 06-28-2024 30 Normal [facility] 30 Normal [facility] 30 Normal [facility] BASIC METABOLIC PANELon 06-07 Anion gap [Moles/Vol] 10 mmol/L Normal 7-20 [facility] Comment on above: Performed By: #### L [id number] ####[facility] ([facility])[address] [place] [address] Calcium [Mass/Vol] 8.2 mg/dL Low 8.6-10.3 [facility] Comment on above: Performed By: #### L [id number] ####[facility] [place] [address] Chloride [Moles/Vol] 105 mmol/L Normal 98-107 [facility] Comment on above: Performed By: #### L [id number] ####[facility] (BEAKER)[address] [place] [address] CO2 [Moles/Vol] 24 mmol/L Normal 21-31 [facility] Comment on above: Performed By: #### L [id number] ####[facility] ([facility])[address] [place] [address] Creatinine [Mass/Vol] 0.75 mg/dL Normal 0.70-1.[address] [facility] Comment on above: Performed By: #### L [id number] ####[facility] ([facility])[address] [place] [address] GLOMERULAR FILTRATION RATE ML/MIN/1.73 SQ M.PREDICTED 90.1 mL/min/1.73m*2 Normal >60.0 [facility] Comment on above: Result Comment: [facility]???s estimated glomerular filtration rate (eGFR) will [...] group of individuals. Performed By: #### L [id number] ####[facility] ([facility])[address] [place] [address] Glucose [Mass/Vol] 109 mg/dL High 70-100 [facility] Comment on above: Performed By: #### L [id number] ####[facility] ([facility])[address] [place] [address] Potassium [Moles/Vol] 4.4 mmol/L Normal 3.5-5.[address] [facility] Comment on above: Performed By: #### L [id number] ####[facility] ([facility])[address] [place] [address] Sodium [Moles/Vol] 135 mmol/L Low 136-145 [facility] Comment on above: Performed By: #### L [id number] ####[facility] ([facility])[address] [place] [address] Urea nitrogen [Mass/Vol] 27 mg/dL High 7-25 [facility] Comment on above: Performed By: #### L [id number] ####[facility] [place] [address] UREA NITROGEN/CREATININE (MASS RATIO) IN SER/PLAS 36.0 Normal [facility] Comment on above: Performed By: #### L [id number] ####[facility] [place] [address] CBCon 06-28-2024 Erythrocyte distribution width (RBC) [Ratio] 12.7 % Normal 11.5-15.0 [facility] Comment on above: Performed By: #### L [id number] ####[facility] ([facility])[address] [place] [address] ERYTHROCYTE MEAN CORPUSCULAR HEMOGLOBIN CONCENTRATION (G/DL) BY AUTOMATED 33.3 g/dL Normal 32.0-35.0 [facility] Comment on above: Performed By: #### L [id number] ####[facility] [place] [address] Hematocrit (Bld) [Volume fraction] 31.5 % Low 39.0-50.0 [facility] Comment on above: Performed By: #### L [id number] ####[facility] [place] [address] Hemoglobin (Bld) [Mass/Vol] 10.5 g/dL Low 13.0-17.0 [facility] Comment on above: Performed By: #### L [id number] ####[facility] [place] [address] MCH (RBC) [Entitic mass] 30.4 pg Normal 27.0-33.0 [facility] Comment on above: Performed By: #### L [id number] ####[facility] (BEAKER)[address] [place] [address] MCV (RBC) [Entitic vol] 91.3 fL Normal 82.0-98.0 [facility] Comment on above: Performed By: #### L [id number] ####[facility] (BEAKER)[address] [address] PLATELETS (10*3/UL) IN BLOOD AUTOMATED COUNT 155 10*3/uL Normal 150-400 [facility] Comment on above: Performed By: #### L [id number] ####[facility] (BEAKER)[address] [address] RBC (Bld) [#/Vol] 3.45 10*6/uL Low 4.20-5.70 [facility] Comment on above: Performed By: #### L [id number] ####[facility] (BEAKER)[address] [address] WBC (Bld) [#/Vol] 11.44 10*3/uL High 4.00-10.60 [facility] Comment on above: Performed By: #### L [id number] ####[facility] (BEAKER)[address] [address] CONSULTon 06-28-2024 CONSULT Normal [facility] CONSULT Normal [facility] HEMOGLOBIN AND HEMATOCRIT, B LOODon 06-28-2024 Hematocrit (Bld) [Volume fraction] 30.6 % Low 39.0-50.0 [facility] Comment on above: Performed By: #### L [id number] ####[facility] (BEAKER)[address] [place] [address] Hemoglobin (Bld) [Mass/Vol] 10.0 g/dL Low 13.0-17.0 [facility] Comment on above: Performed By: #### L [id number] ####[facility] (BEAKER)[address] [address] Hematocrit (Bld) [Volume fraction] 32.7 % Low 39.0-50.0 [facility] Comment on above: Performed By: #### L [id number] ####[facility] (BEAKER)[address] [address] Hemoglobin (Bld) [Mass/Vol] 10.6 g/dL Low 13.0-17.0 [facility] Comment on above: Performed By: #### L [id number] ####[facility] (BEAKER)[address] [place] [address] Hematocrit (Bld) [Volume fraction] 31.5 % Low 39.0-50.0 [facility] Comment on above: Performed By: #### L [id number] ####[facility] (BEAKER)[address] [place] [address] Hemoglobin (Bld) [Mass/Vol] 10.4 g/dL Low 13.0-17.0 [facility] Comment on above: Performed By: #### L [id number] ####[facility] (BEAKER)[address] [place] [address] MAGNESIUMon 06-28-2024 Magnesium [Mass/Vol] 1.8 mg/dL Low 1.9-2.7 [facility] Comment on above: Performed By: #### L [id number] ####[facility] (BEAKER)[address] [place] [address] ANESon 06-27-2024 ANES Normal [facility] ANES Normal [facility] HPon 06-27-2024 HP Normal [facility] HP Normal [facility] HP Normal [facility] Basophils Auto (Bld) [#/Vol] on 06-21-2024 Basophils (Bld) [#/Vol] Automated basophil count 0.0-0.[address] [facility] Basophils/100 WBC Auto (Bld) on 06-21-2024 Basophils/100 WBC (Bld) Automated basophil % 0.2-2.0 [facility] Eosinophils/100 WBC Auto (Bl d)on 06-21-2024 Eosinophils/100 WBC (Bld) Automated eosinophil % 0.9-7.0 [facility] Erythrocyte distribution wid th Auto (RBC) [Ratio]on 06-21-2024 Erythrocyte distribution width (RBC) [Ratio] Erythrocyte distribution width [Ratio] by Automated count 11.0-15.0 [facility] Estimated glomerular filtrat ion rate (GFR) non- Americanon 06-21-2024 GFR/1.73 sq M.predicted among non-blacks MDRD (S/P/Bld) [Vol rate/Area] Estimated glomerular filtration rate (GFR) non- >=60 mL/min/1.7 3m 2 [facility] Hematocrit Auto (Bld) [Volum e fraction]on 06-21-2024 Hematocrit (Bld) [Volume fraction] Hematocrit [Volume Fraction] of Blood by Automated count Low 42.0-54.0 [facility] Hemoglobin [Mass/volume] in Bloodon 06-21-2024 Hemoglobin (Bld) [Mass/Vol] Hemoglobin [Mass/volume] in Blood Low 14.0-18.0 [facility] Laboratory - Chemistry and C hemistry - challengeon 06-21-2024 Albumin [Mass/Vol] 3.0 g/dL Low 3.4-5.0 [facility] Calcium [Mass/Vol] 8.4 mg/dL Low 8.5-10.1 [facility] Chloride [Moles/Vol] 105 mmol/L 98-107 [facility] CO2 [Moles/Vol] 31.8 mmol/L 21.0-32.0 [facility] Creatinine [Mass/Vol] 1.04 mg/dL 0.70-1.30 [facility] GFR/1.73 sq M.predicted MDRD (S/P/Bld) [Vol rate/Area] mL/min/{1.73_m2} >=60 mL/min/1.7 3m 2 [facility] Glucose [Mass/Vol] 119 mg/dL High 74-106 [facility] Potassium [Moles/Vol] 4.4 mmol/L 3.5-5.1 [facility] Sodium [Moles/Vol] 140 mmol/L 136-145 [facility] Urea nitrogen [Mass/Vol] 16.0 mg/dL 7.0-18.0 [facility] Urea nitrogen/Creatinine [Mass ratio] 15.4 mg/mg [facility] Laboratory - Hematology and Cell countson 06-21-2024 Immature granulocytes/100 WBC (Bld) 0.3 % 0.0-0.5 [facility] Leukocytes [#/volume] correc shyann for nucleated erythrocytes in Blood by Automated counon 06-21-2024 WBC corrected for nucl RBC Auto (Bld) [#/Vol] Leukocytes [#/volume] corrected for nucleated erythrocytes in Blood by Automated coun 4.0-11.0 [facility] Lymphocytes Auto (Bld) [#/Vo l]on 06-21-2024 Lymphocytes (Bld) [#/Vol] Lymphocytes [#/volume] in Blood by Automated count Low 1.2-3.8 [facility] Lymphocytes/100 WBC Auto (Bl d)on 06-21-2024 Lymphocytes/100 WBC (Bld) Lymphocytes/100 leukocytes in Blood by Automated count Low 20.5-60.0 [facility] MCH Auto (RBC) [Entitic mass ]on 06-21-2024 MCH (RBC) [Entitic mass] MCH [Entitic mass] by Automated count 25.9-34.0 [facility] MCHC Auto (RBC) [Mass/Vol]on 06-21-2024 MCHC (RBC) [Mass/Vol] MCHC [Mass/volume] by Automated count 29.9-35.2 [facility] MCV Auto (RBC) [Entitic vol] on 06-21-2024 MCV (RBC) [Entitic vol] MCV [Entitic volume] by Automated count 80.0-94.0 [facility] Monocytes Auto (Bld) [#/Vol] on 06-21-2024 Monocytes (Bld) [#/Vol] Automated blood monocyte count 0.3-0.8 [facility] Monocytes/100 WBC Auto (Bld) on 06-21-2024 Monocytes/100 WBC (Bld) Automated monocyte % High 1.7-12.0 [facility] Neutrophils Auto (Bld) [#/Vo l]on 06-21-2024 Neutrophils (Bld) [#/Vol] Neutrophils [#/volume] in Blood by Automated count 1.4-6.5 [facility] Neutrophils/100 WBC Auto (Bl d)on 06-21-2024 Neutrophils/100 WBC (Bld) Automated neutrophil % 43.0-75.0 [facility] No Panel Informationon 06-21 Eosinophils # (Auto) 0.1 10 3/uL 0.0-0.7 [facility] Immature Granulocyte # (Auto) 0.02 10 3/uL 0.00-0.03 [facility] Platelet mean volume Auto (B ld) [Entitic vol]on 06-21-2024 Platelet mean volume (Bld) [Entitic vol] Platelet mean volume [Entitic volume] in Blood by Automated count 9.5-13.5 [facility] Platelets Auto (Bld) [#/Vol] on 06-21-2024 Platelets (Bld) [#/Vol] Platelets [#/volume] in Blood by Automated count Low 150-450 [facility] RBC Auto (Bld) [#/Vol]on RBC (Bld) [#/Vol] Erythrocytes [#/volu me] in Blood by Automated count Low 4.70-6.10 [facility] Serum or plasma anion gap de terminationon 06-21-2024 Anion gap [Moles/Vol] Serum or plasma an ion gap determination [facility] Orders Onlyon 06-20-2024 Orders Only Normal [facility] Orders Onlyon 06-18-2024 Orders Only Normal [facility] Orders Onlyon 06-15-2024 Orders Only Normal [facility] CTA ABDOMEN PELVIS W IV CONT RASTon 06-06-2024 CTA ABDOMEN PELVIS W IV CONTRAST Invalid Interpretation Code [facility] CTA CHEST W IV CONTRASTon CTA CHEST W IV CONTRAST Invalid Interpretation Code [facility] [id number] 05-30-2024 [id number] Normal [facility] ANESon 05-30-2024 ANES Normal [facility] ANES Normal [facility] HISTOLOGY - TISSUE EXAMon LAB AP ADDENDUM 1 Normal [facility] Comment on above: Result Comment: A. I mmunohistochemical staining for Helicobacter pylori is negative. The control is satisfactory.Addendum electronically signed by Jez Vazquez MD on 06/07/2024 at 3:38 PM Performed By: #### L [id number] ####[facility] (BEAKER)[address] [place] [address] LAB AP ASR DISCLAIMER Normal Uni versity [facility] Comment on above: Performed By: #### L [id number] ####[facility] (BEAKER)[address] [place] [address] LAB AP [facility] REPORT [facility] Comment on above: Result Comment: Surg ical Pathology Case: [id number] Provider: Frankie Brennan MD Collected: 05/30/2024 [id number] Location: [facility] Main Operating Room Received: 05/30/2024 1510Pathologist: KATE Sanchezpecimens: A) - Gastric, r/o h pylori B) - Proximal Esophagus, r/o EOE C) - Distal Esophagus, r/o EOE Performed By: #### L [id number] ####[facility] (BEAKER)[address] [place] [address] LAB AP CLINICAL INFORMATION Order Diagnoses [facility] Comment on above: Result Comment: R13. 11 - Oral phase dysphagia [ICD-10-CM] Performed By: #### L [id number] ####[facility] (BEAKER)[address] [place] [address] LAB AP DIAGNOSIS COMMENT A. Immunohistochemical staining for Helicobacter pylori organisms is pending with results to follow in an addendum. [facility] Comment on above: Performed By: #### L [id number] ####[facility] (BEAKER)[address] [place] [address] LAB AP GROSS DESCRIPTION A. Gastric. [facility] Comment on above: Result Comment: The specimen is received in formalin labeled [place] and gastric biopsy. It consists of 3 bits and strips of galicia-pink irregular mucosal tissue ranging from 0.2 cm to 0.9 cm in greatest dimension. The specimen is submitted in toto in 1 cassette.Nubia Gutierrez, Pathologists' Dough Cutter Hugo Feliciano, Pathologists' AssistantB. Proximal Esophagus.The specimen is received in formalin labeled [place] and proximal esophagus biopsy. It consists of 4 bits of galicia-pink irregular mucosal tissue ranging from 0.2 cm to 0.4 cm in greatest dimension. The specimen is submitted in toto in 1 cassette.Nubia Gutierrez Pathologists' Assistant Hugo Feliciano Pathologists' C. Distal Esophagus.The specimen is received in formalin labeled [place] and distal esophagus biopsy. It consists of 5 bits of galicia-pink irregular mucosal tissue ranging from 0.2 cm to 0.4 cm in greatest dimension. The specimen is submitted in toto in 1 cassette.Nubia Gutierrez Pathologists' Assistant Hugo Feliciano Pathologists' Performed By: #### L [id number] ####[facility] ([facility])[address] [place] [address] LAB AP MICROSCOPIC DESCRIPTION Microscopic examination performed. [facility] Comment on above: Performed By: #### L [id number] ####[facility] HOSPITAL)[address] [place] [address] LAB AP REPORT FINAL DIAGNOSIS NARRATIVE [facility] Comment on above: Result Comment: A. S tomach, biopsy: -Chronic inactive gastritis. -No intestinal metaplasia identified. -See comment.B. Proximal esophagus, biopsy: -Squamous mucosa with no specific abnormality.-No intraepithelial eosinophils identified.C. Distal esophagus, biopsy: -Gastroesophageal junction mucosa with nonspecific chronic inflammation. -No intestinal metaplasia identified. Performed By: #### L [id number] ####[facility] ([facility])[address] [place] [address] HPon 05-30-2024 HP H&P reviewed. The pa tient was examined and there are no changes to the H&P. [facility] POCT GLUCOSE METER UNSOLICIT ED RESULTSon 05-30-2024 Glucose [Mass/Vol] 120 mg/dL High 70-105 [facility] Comment on above: Order Comment: Waive d Testing in the ED is performed under the ED CLIA certificate #[id number]. Result Comment: acas til5 Performed By: #### L [id number] ####[facility] (BEAKER)[address] [place] [address] Prep for Procedureon 025 Prep for Procedure Normal [facility] Estimated glomerular filtrat ion rate (GFR) non- Americanon 05-25-2024 GFR/1.73 sq M.predicted among non-blacks MDRD (S/P/Bld) [Vol rate/Area] Estimated glomerular filtration rate (GFR) non- >=60 mL/min/1.7 3m 2 [facility] Laboratory - Chemistry and C hemistry - challengeon 05-25-2024 Calcium [Mass/Vol] 8.6 mg/dL 8.5-10.1 [facility] Chloride [Moles/Vol] 104 mmol/L 98-107 [facility] CO2 [Moles/Vol] 30.2 mmol/L 21.0-32.0 [facility] Creatinine [Mass/Vol] 0.97 mg/dL 0.70-1.30 [facility] GFR/1.73 sq M.predicted MDRD (S/P/Bld) [Vol rate/Area] mL/min/{1.73_m2} >=60 mL/min/1.7 3m 2 [facility] Glucose [Mass/Vol] 96 mg/dL 74-106 [facility] Potassium [Moles/Vol] 4.4 mmol/L 3.5-5.1 [facility] Sodium [Moles/Vol] 140 mmol/L 136-145 [facility] Urea nitrogen [Mass/Vol] 16.0 mg/dL 7.0-18.0 [facility] Urea nitrogen/Creatinine [Mass ratio] 16.5 mg/mg [facility] Orders Onlyon 05-25-2024 Orders Only Normal [facility] Serum or plasma anion gap de terminationon 05-25-2024 Anion gap [Moles/Vol] Serum or plasma an ion gap determination [facility] Orders Onlyon 05-23-2024 Orders Only Normal [facility] Orders Onlyon 05-19-2024 Orders Only Normal [facility] Orders Onlyon 05-18-2024 Orders Only Normal [facility] HPon 05-03-2024 HP [facility] Consulton 04-18-2024 Consult [facility] ANESon 04-12-2024 ANES [facility] HPon 04-12-2024 HP Normal [facility] HP [facility] NURSNOTEon 04-12-2024 NURSNOTE Normal [facility] HPon 03-21-2024 HP Normal [facility] Orders Onlyon 03-21-2024 Orders Only [facility] 36on 02-15-[address] Cerda - ok for patient to hold Eliquis 2 days prior to tooth extraction. Patient's and Dr. Mcgovern's office made aware. Patient's also made aware of stress test result per Dr. Cerda. He has follow up apt with him on 03/21/2024. [facility] Follow-Upon 01-19-2024 Follow-Up [facility] Orders Onlyon 01-19-2024 Orders Only Normal [facility] US aortaon 01-11-2024 aorta [facility] [address] [place] [address] Ultrasound Report Signed Patient: Chico Baker MR#: [id number] : 1940 Acct:[id number] Age/Sex: 83 / M ADM Date: 01/11/24 Loc: [facility] Room: Type: [facility] Attending [...] Raul Quan M.D.01/11/2024 11:12 AM Dictation Location: [place] [address] Tech: Harika Lorne Transcribed By: ALEX 01/11/241111 Dictated By: Raul Quan MD 01/11/241109 Signed By: 01/11/24 111 Normal [facility] Basophils Auto (Bld) [#/Vol] on 12-17-2023 Basophils (Bld) [#/Vol] 0.1 10 3/uL 0.0-0.1 [facility] Basophils/100 WBC Auto (Bld) on 12-17-2023 Basophils/100 WBC (Bld) 0.7 % 0.2-2.0 [facility] Eosinophils/100 WBC Auto (Bl d)on 12-17-2023 Eosinophils/100 WBC (Bld) 1.4 % 0.9-7.0 [facility] Erythrocyte distribution wid th Auto (RBC) [Ratio]on 12-17-2023 Erythrocyte distribution width (RBC) [Ratio] 12.3 % 11.0-15.0 [facility] Hematocrit Auto (Bld) [Volum e fraction]on 12-17-2023 Hematocrit (Bld) [Volume fraction] 39.0 % Low 42.0-54.0 [facility] Hemoglobin [Mass/volume] in Bloodon 12-17-2023 Hemoglobin (Bld) [Mass/Vol] 12.7 g/dL Low 14.0-18.0 [facility] Laboratory - Hematology and Cell countson 12-17-2023 Immature granulocytes/100 WBC (Bld) 0.3 % 0.0-0.5 [facility] Leukocytes [#/volume] correc shyann for nucleated erythrocytes in Blood by Automated counon 12-17-2023 WBC corrected for nucl RBC Auto (Bld) [#/Vol] 10.7 10 3/uL 4.0-11.0 [facility] Lymphocytes Auto (Bld) [#/Vo l]on 12-17-2023 Lymphocytes (Bld) [#/Vol] 1.7 10 3/uL 1.2-3.8 [facility] Lymphocytes/100 WBC Auto (Bl d)on 12-17-2023 Lymphocytes/100 WBC (Bld) 15.7 % Low 20.5-60.0 [facility] MCH Auto (RBC) [Entitic mass ]on 12-17-2023 MCH (RBC) [Entitic mass] 30.4 pg 25.9-34.0 [facility] MCHC Auto (RBC) [Mass/Vol]on 12-17-2023 MCHC (RBC) [Mass/Vol] 32.6 g/dL 29.9-35.2 [facility] MCV Auto (RBC) [Entitic vol] on 12-17-2023 MCV (RBC) [Entitic vol] 93.3 fL 80.0-94.0 [facility] Monocytes Auto (Bld) [#/Vol] on 12-17-2023 Monocytes (Bld) [#/Vol] 1.0 10 3/uL High 0.3-0.8 [facility] Monocytes/100 WBC Auto (Bld) on 12-17-2023 Monocytes/100 WBC (Bld) 9.7 % 1.7-12.0 [facility] Neutrophils Auto (Bld) [#/Vo l]on 12-17-2023 Neutrophils (Bld) [#/Vol] 7.7 10 3/uL High 1.4-6.5 [facility] Neutrophils/100 WBC Auto (Bl d)on 12-17-2023 Neutrophils/100 WBC (Bld) 72.2 % 43.0-75.0 [facility] No Panel Informationon 12-16 C-Reactive Protein, Quantitative 0.59 mg/dL High <=0.50 [facility] Eosinophils # (Auto) 0.2 10 3/uL 0.0-0.7 [facility] Immature Granulocyte # (Auto) 0.03 10 3/uL 0.00-0.03 [facility] Clostridium difficile (PCR)(LAB) Positive Abnormal NEGATIVE [facility] Comment on above: RESULTS CALLED TO CARLOS A RICHARDS Miscellaneous Test Comment See comment [facility] Comment on above: Specimen Source: ST - Stool - Stool - 700.100 Stool Campylobacter Culture Res 1 \R\ Campylobacter Culture\R\ No Campylobacter species isolated. [facility] Comment on above: [facility], No Panel InformationOrdered By: Shailesh Dunham on 12-17-2023 E coli Shiga Toxin EIA Fi [facility] Salmonella/Shigella Screen [facility] Platelet mean volume Auto (B ld) [Entitic vol]on 12-17-2023 Platelet mean volume (Bld) [Entitic vol] 9.4 fL Low 9.5-13.5 [facility] Platelets Auto (Bld) [#/Vol] on 12-17-2023 Platelets (Bld) [#/Vol] 190 10 3/uL 150-450 [facility] RBC Auto (Bld) [#/Vol]on RBC (Bld) [#/Vol] 4.18 10 6/uL Low 4.70-6.10 [facility] US carotid doppler BIon 09-0 [place] [address] Ultrasound Report Signed Patient: Chico Baker MR#: [id number] 284 : 1940 Acct:[id number] Age/Sex: 83 / M ADM Date: 11/15/23 Loc: [facility] Room: Type: [facility] Attending [...] Raul Quan M.D.11/15/2023 10:27 AM Dictation Location: [place] [address] Tech: Jennifer Mancini Transcribed By: ALEX 11/15/23 1027 Dictated By: Raul Quan MD 11/15/23 1025 Signed By: 11/15/23 1027 Normal [facility] Basophils Auto (Bld) [#/Vol] on 10-26-2023 Basophils (Bld) [#/Vol] 0.1 10 3/uL 0.0-0.1 [facility] Basophils/100 WBC Auto (Bld) on 10-26-2023 Basophils/100 WBC (Bld) 0.5 % 0.2-2.0 [facility] Eosinophils/100 WBC Auto (Bl d)on 10-26-2023 Eosinophils/100 WBC (Bld) 2.9 % 0.9-7.0 [facility] Erythrocyte distribution wid th Auto (RBC) [Ratio]on 10-26-2023 Erythrocyte distribution width (RBC) [Ratio] 12.7 % 11.0-15.0 [facility] Estimated glomerular filtrat ion rate (GFR) non- Americanon 10-26-2023 GFR/1.73 sq M.predicted among non-blacks MDRD (S/P/Bld) [Vol rate/Area] mL/min/{1.73_m2} >=60 [facility] Globulin Calc (S) [Mass/Vol] on 10-26-2023 Globulin (S) [Mass/Vol] 3.9 g/dL [facility] Hematocrit Auto (Bld) [Volum e fraction]on 10-26-2023 Hematocrit (Bld) [Volume fraction] 32.4 % Low 42.0-54.0 [facility] Hemoglobin [Mass/volume] in Bloodon 10-26-2023 Hemoglobin (Bld) [Mass/Vol] 10.4 g/dL Low 14.0-18.0 [facility] Laboratory - Chemistry and C hemistry - challengeon 10-26-2023 Albumin [Mass/Vol] 3.1 g/dL Low 3.4-5.0 [facility] ALP [Catalytic activity/Vol] 106 U/L 46-116 [facility] ALT [Catalytic activity/Vol] 19 U/L 16-63 [facility] AST [Catalytic activity/Vol] 16 U/L 15-37 [facility] Bilirubin [Mass/Vol] 0.5 mg/dL 0.2-1.0 [facility] Calcium [Mass/Vol] 8.8 mg/dL 8.5-10.1 [facility] Chloride [Moles/Vol] 100 mmol/L 98-107 [facility] CO2 [Moles/Vol] 29.0 mmol/L 21.0-32.0 [facility] Creatinine [Mass/Vol] 0.95 mg/dL 0.70-1.30 [facility] GFR/1.73 sq M.predicted MDRD (S/P/Bld) [Vol rate/Area] mL/min/{1.73_m2} >=60 [facility] Glucose [Mass/Vol] 134 mg/dL High 74-106 [facility] Potassium [Moles/Vol] 4.5 mmol/L 3.5-5.1 [facility] Protein [Mass/Vol] 7.0 g/dL 6.4-8.2 [facility] Sodium [Moles/Vol] 136 mmol/L 136-145 [facility] TSH Qn 2.068 m[IU]/L 0.358-3.74 0 [facility] Urea nitrogen [Mass/Vol] 14.0 mg/dL 7.0-18.0 [facility] Urea nitrogen/Creatinine [Mass ratio] 14.7 mg/mg [facility] Laboratory - Hematology and Cell countson 10-26-2023 Immature granulocytes/100 WBC (Bld) 0.5 % 0.0-0.5 [facility] Leukocytes [#/volume] correc shyann for nucleated erythrocytes in Blood by Automated counon 10-26-2023 WBC corrected for nucl RBC Auto (Bld) [#/Vol] 12.4 10 3/uL High 4.0-11.0 [facility] Lymphocytes Auto (Bld) [#/Vo l]on 10-26-2023 Lymphocytes (Bld) [#/Vol] 1.4 10 3/uL 1.2-3.8 [facility] Lymphocytes/100 WBC Auto (Bl d)on 10-26-2023 Lymphocytes/100 WBC (Bld) 11.6 % Low 20.5-60.0 [facility] MCH Auto (RBC) [Entitic mass ]on 10-26-2023 MCH (RBC) [Entitic mass] 30.0 pg 25.9-34.0 [facility] MCHC Auto (RBC) [Mass/Vol]on 10-26-2023 MCHC (RBC) [Mass/Vol] 32.1 g/dL 29.9-35.2 [facility] MCV Auto (RBC) [Entitic vol] on 10-26-2023 MCV (RBC) [Entitic vol] 93.4 fL 80.0-94.0 [facility] Monocytes Auto (Bld) [#/Vol] on 10-26-2023 Monocytes (Bld) [#/Vol] 1.4 10 3/uL High 0.3-0.8 [facility] Monocytes/100 WBC Auto (Bld) on 10-26-2023 Monocytes/100 WBC (Bld) 11.0 % 1.7-12.0 [facility] Neutrophils Auto (Bld) [#/Vo l]on 10-26-2023 Neutrophils (Bld) [#/Vol] 9.1 10 3/uL High 1.4-6.5 [facility] Neutrophils/100 WBC Auto (Bl d)on 10-26-2023 Neutrophils/100 WBC (Bld) 73.5 % 43.0-75.0 [facility] No Panel Informationon 10-25 Eosinophils # (Auto) 0.4 10 3/uL 0.0-0.7 [facility] Immature Granulocyte # (Auto) 0.06 10 3/uL High 0.00-0.03 [facility] Platelet mean volume Auto (B ld) [Entitic vol]on 10-26-2023 Platelet mean volume (Bld) [Entitic vol] 9.2 fL Low 9.5-13.5 [facility] Platelets Auto (Bld) [#/Vol] on 10-26-2023 Platelets (Bld) [#/Vol] 209 10 3/uL 150-450 [facility] RBC Auto (Bld) [#/Vol]on RBC (Bld) [#/Vol] 3.47 10 6/uL Low 4.70-6.10 [facility] Serum or plasma albumin/glob ulin mass ratioon 10-26-2023 Albumin/Globulin [Mass ratio] 0.8 {ratio} [facility] Serum or plasma anion gap de terminationon 10-26-2023 Anion gap [Moles/Vol] 11.5 mmol/L [facility] Basophils Auto (Bld) [#/Vol] on 10-17-2023 Basophils (Bld) [#/Vol] 0.0 10 3/uL 0.0-0.1 [facility] Basophils/100 WBC Auto (Bld) on 10-17-2023 Basophils/100 WBC (Bld) 0.2 % 0.2-2.0 [facility] Eosinophils/100 WBC Auto (Bl d)on 10-17-2023 Eosinophils/100 WBC (Bld) 1.6 % 0.9-7.0 [facility] Erythrocyte distribution wid th Auto (RBC) [Ratio]on 10-17-2023 Erythrocyte distribution width (RBC) [Ratio] 12.2 % 11.0-15.0 [facility] Estimated glomerular filtrat ion rate (GFR) non- Americanon 10-17-2023 GFR/1.73 sq M.predicted among non-blacks MDRD (S/P/Bld) [Vol rate/Area] mL/min/{1.73_m2} >=60 [facility] Globulin Calc (S) [Mass/Vol] on 10-17-2023 Globulin (S) [Mass/Vol] 3.5 g/dL [facility] Hematocrit Auto (Bld) [Volum e fraction]on 10-17-2023 Hematocrit (Bld) [Volume fraction] 29.1 % Low 42.0-54.0 [facility] Hemoglobin [Mass/volume] in Bloodon 10-17-2023 Hemoglobin (Bld) [Mass/Vol] 9.6 g/dL Low 14.0-18.0 [facility] Laboratory - Chemistry and C hemistry - challengeon 10-17-2023 Albumin [Mass/Vol] 2.8 g/dL Low 3.4-5.0 [facility] ALP [Catalytic activity/Vol] 99 U/L 46-116 [facility] ALT [Catalytic activity/Vol] 33 U/L 16-63 [facility] AST [Catalytic activity/Vol] 15 U/L 15-37 [facility] Bilirubin [Mass/Vol] 0.8 mg/dL 0.2-1.0 [facility] Calcium [Mass/Vol] 8.4 mg/dL Low 8.5-10.1 [facility] Chloride [Moles/Vol] 96 mmol/L Low 98-107 [facility] CO2 [Moles/Vol] 30.9 mmol/L 21.0-32.0 [facility] Creatinine [Mass/Vol] 0.84 mg/dL 0.70-1.30 [facility] GFR/1.73 sq M.predicted MDRD (S/P/Bld) [Vol rate/Area] mL/min/{1.73_m2} >=60 [facility] Glucose [Mass/Vol] 103 mg/dL 74-106 [facility] Natriuretic peptide B (Bld) [Mass/Vol] 1963.0 pg/mL High <=1800.0 [facility] Comment on above: RESULTS CALLED TO IC Allison Elaine RN @BY Fuad Carmona MLT at 0617 Potassium [Moles/Vol] 3.8 mmol/L 3.5-5.1 [facility] Protein [Mass/Vol] 6.3 g/dL Low 6.4-8.2 [facility] Sodium [Moles/Vol] 130 mmol/L Low 136-145 [facility] Urea nitrogen [Mass/Vol] 28.0 mg/dL High 7.0-18.0 [facility] Urea nitrogen/Creatinine [Mass ratio] 33.3 mg/mg [facility] Laboratory - Hematology and Cell countson 10-17-2023 Immature granulocytes/100 WBC (Bld) 0.4 % 0.0-0.5 [facility] Leukocytes [#/volume] correc shyann for nucleated erythrocytes in Blood by Automated counon 10-17-2023 WBC corrected for nucl RBC Auto (Bld) [#/Vol] 9.1 10 3/uL 4.0-11.0 [facility] Lymphocytes Auto (Bld) [#/Vo l]on 10-17-2023 Lymphocytes (Bld) [#/Vol] 1.2 10 3/uL 1.2-3.8 [facility] Lymphocytes/100 WBC Auto (Bl d)on 10-17-2023 Lymphocytes/100 WBC (Bld) 13.5 % Low 20.5-60.0 [facility] MCH Auto (RBC) [Entitic mass ]on 10-17-2023 MCH (RBC) [Entitic mass] 30.2 pg 25.9-34.0 [facility] MCHC Auto (RBC) [Mass/Vol]on 10-17-2023 MCHC (RBC) [Mass/Vol] 33.0 g/dL 29.9-35.2 [facility] MCV Auto (RBC) [Entitic vol] on 10-17-2023 MCV (RBC) [Entitic vol] 91.5 fL 80.0-94.0 [facility] Monocytes Auto (Bld) [#/Vol] on 10-17-2023 Monocytes (Bld) [#/Vol] 1.1 10 3/uL High 0.3-0.8 [facility] Monocytes/100 WBC Auto (Bld) on 10-17-2023 Monocytes/100 WBC (Bld) 12.0 % 1.7-12.0 [facility] Neutrophils Auto (Bld) [#/Vo l]on 10-17-2023 Neutrophils (Bld) [#/Vol] 6.6 10 3/uL High 1.4-6.5 [facility] Neutrophils/100 WBC Auto (Bl d)on 10-17-2023 Neutrophils/100 WBC (Bld) 72.3 % 43.0-75.0 [facility] No Panel Informationon 10-16 Eosinophils # (Auto) 0.2 10 3/uL 0.0-0.7 [facility] Immature Granulocyte # (Auto) 0.04 10 3/uL High 0.00-0.03 [facility] Troponin I High Sensitivity 180.4 pg/mL High 4.0-76.1 [facility] Comment on above: RESULTS CALLED TO MIMI Wagnerd, RN @BY Fuad Carmona MLT at 0617CUT-OFF [...] volume (Bld) [Entitic vol] 9.7 fL 9.5-13.5 [facility] Platelets Auto (Bld) [#/Vol] on 10-17-2023 Platelets (Bld) [#/Vol] 191 10 3/uL 150-450 [facility] RBC Auto (Bld) [#/Vol]on RBC (Bld) [#/Vol] 3.18 10 6/uL Low 4.70-6.10 [facility] Serum or plasma albumin/glob ulin mass ratioon 10-17-2023 Albumin/Globulin [Mass ratio] 0.8 {ratio} [facility] Serum or plasma anion gap de terminationon 10-17-2023 Anion gap [Moles/Vol] 6.9 mmol/L [facility] Basophils Auto (Bld) [#/Vol] on 10-16-2023 Basophils (Bld) [#/Vol] 0.0 10 3/uL 0.0-0.1 [facility] Basophils/100 WBC Auto (Bld) on 10-16-2023 Basophils/100 WBC (Bld) 0.2 % 0.2-2.0 [facility] Basophils/100 WBC Manual cnt (Bld)on 10-16-2023 Basophils/100 WBC (Bld) 1.0 % 0.2-2.0 [facility] Eosinophils/100 WBC Auto (Bl d)on 10-16-2023 Eosinophils/100 WBC (Bld) 0.3 % Low 0.9-7.0 [facility] Eosinophils/100 WBC Manual c nt (Bld)on 10-16-2023 Eosinophils/100 WBC (Bld) 0.0 % Low 0.9-7.0 [facility] Erythrocyte distribution wid th Auto (RBC) [Ratio]on 10-16-2023 Erythrocyte distribution width (RBC) [Ratio] 12.4 % 11.0-15.0 [facility] Estimated glomerular filtrat ion rate (GFR) non- Americanon 10-16-2023 GFR/1.73 sq M.predicted among non-blacks MDRD (S/P/Bld) [Vol rate/Area] mL/min/{1.73_m2} >=60 [facility] Globulin Calc (S) [Mass/Vol] on 10-16-2023 Globulin (S) [Mass/Vol] 3.7 g/dL [facility] Hematocrit Auto (Bld) [Volum e fraction]on 10-16-2023 Hematocrit (Bld) [Volume fraction] 30.5 % Low 42.0-54.0 [facility] Hemoglobin [Mass/volume] in Bloodon 10-16-2023 Hemoglobin (Bld) [Mass/Vol] 10.2 g/dL Low 14.0-18.0 [facility] Laboratory - Chemistry and C hemistry - challengeon 10-16-2023 Albumin [Mass/Vol] 2.9 g/dL Low 3.4-5.0 [facility] ALP [Catalytic activity/Vol] 98 U/L 46-116 [facility] ALT [Catalytic activity/Vol] 45 U/L 16-63 [facility] AST [Catalytic activity/Vol] 19 U/L 15-37 [facility] Bilirubin [Mass/Vol] 0.8 mg/dL 0.2-1.0 [facility] Calcium [Mass/Vol] 8.3 mg/dL Low 8.5-10.1 [facility] Chloride [Moles/Vol] 97 mmol/L Low 98-107 [facility] CO2 [Moles/Vol] 31.7 mmol/L 21.0-32.0 [facility] Creatinine [Mass/Vol] 0.84 mg/dL 0.70-1.30 [facility] GFR/1.73 sq M.predicted MDRD (S/P/Bld) [Vol rate/Area] mL/min/{1.73_m2} >=60 [facility] Glucose [Mass/Vol] 94 mg/dL 74-106 [facility] Natriuretic peptide B (Bld) [Mass/Vol] 4170.0 pg/mL High <=1800.0 [facility] Comment on above: RESULTS CALLED TO PRECIOUS MURPHY RN Potassium [Moles/Vol] 3.5 mmol/L 3.5-5.1 [facility] Protein [Mass/Vol] 6.6 g/dL 6.4-8.2 [facility] Sodium [Moles/Vol] 132 mmol/L Low 136-145 [facility] Urea nitrogen [Mass/Vol] 31.0 mg/dL High 7.0-18.0 [facility] Urea nitrogen/Creatinine [Mass ratio] 36.9 mg/mg [facility] Laboratory - Hematology and Cell countson 10-16-2023 Lymphocytes/100 WBC (Bld) 12.0 % Low 20.5-60.0 [facility] Monocytes/100 WBC (Bld) 11.0 % 1.7-12.0 [facility] Immature granulocytes/100 WBC (Bld) 0.3 % 0.0-0.5 [facility] Leukocytes [#/volume] correc shyann for nucleated erythrocytes in Blood by Automated counon 10-16-2023 WBC corrected for nucl RBC Auto (Bld) [#/Vol] 11.6 10 3/uL High 4.0-11.0 [facility] Lymphocytes Auto (Bld) [#/Vo l]on 10-16-2023 Lymphocytes (Bld) [#/Vol] 1.4 10 3/uL 1.2-3.8 [facility] Lymphocytes/100 WBC Auto (Bl d)on 10-16-2023 Lymphocytes/100 WBC (Bld) 14.6 % Low 20.5-60.0 [facility] MCH Auto (RBC) [Entitic mass ]on 10-16-2023 MCH (RBC) [Entitic mass] 30.4 pg 25.9-34.0 [facility] MCHC Auto (RBC) [Mass/Vol]on 10-16-2023 MCHC (RBC) [Mass/Vol] 33.4 g/dL 29.9-35.2 [facility] MCV Auto (RBC) [Entitic vol] on 10-16-2023 MCV (RBC) [Entitic vol] 91.0 fL 80.0-94.0 [facility] Monocytes Auto (Bld) [#/Vol] on 10-16-2023 Monocytes (Bld) [#/Vol] 1.1 10 3/uL High 0.3-0.8 [facility] Monocytes/100 WBC Auto (Bld) on 10-16-2023 Monocytes/100 WBC (Bld) 12.3 % High 1.7-12.0 [facility] Neutrophils Auto (Bld) [#/Vo l]on 10-16-2023 Neutrophils (Bld) [#/Vol] 6.7 10 3/uL High 1.4-6.5 [facility] Neutrophils/100 WBC Auto (Bl d)on 10-16-2023 Neutrophils/100 WBC (Bld) 72.3 % 43.0-75.0 [facility] No Panel Informationon 10-15 Absolute Basophils (Manual) 0.11 10 3/uL High 0.00-0.10 [facility] Eosinophils # (Manual) 0.00 10 3/uL 0.00-0.70 [facility] Lymphocytes # (Manual) 1.39 10 3/uL 1.20-3.80 [facility] Monocytes # (Manual) 1.27 10 3/uL High 0.30-0.80 [facility] Segmented Neutrophils # (Manual) 8.81 10 3/uL High 1.4-6.5 [facility] Aerobic Culture Result 1 \R\ Result 3\R\ BUILDING SERVICES ENGINEER [facility] Comment on above: [facility], Aerobic Culture Result 2 \R\ Result 4\R\ BUILDING SERVICES ENGINE[employer] [facility] Comment on above: [facility], Gram Stain Comment (LAB) [facility] Gram Stain Result 1 Positive [facility] Comment on above: [facility], Gram Stain Result 2 Negative [facility] Comment on above: [facility], Miscellaneous Test Comment See comment [facility] Comment on above: Specimen Source: S - Sputum - Sputum - 300.100 Sputum Other Cells \R\ White Blood Cells [facility] Sputum Other Cells 2 \R\ Epithelial Cell s\R\ Few [facility] Comment on above: [facility], Eosinophils # (Auto) 0.0 10 3/uL 0.0-0.7 [facility] Immature Granulocyte # (Auto) 0.03 10 3/uL 0.00-0.03 [facility] Troponin I High Sensitivity 209.6 pg/mL High 4.0-76.1 [facility] Comment on above: RESULTS CALLED TO PRECIOUS MURPHYRNCUT-OFF POINTS HAVE BEEN ESTABLISHED BASED ON THE FOURTHIVERSAL DEFINITION OF MYOCARDIAL INFARCTION. THE UPPERREFERENCE LIMIT [...] volume (Bld) [Entitic vol] 9.5 fL 9.5-13.5 [facility] Platelets Auto (Bld) [#/Vol] on 10-16-2023 Platelets (Bld) [#/Vol] 240 10 3/uL 150-450 [facility] RBC Auto (Bld) [#/Vol]on RBC (Bld) [#/Vol] 3.35 10 6/uL Low 4.70-6.10 [facility] Segmented neutrophils/100 WB C Manual cnt (Bld)on 10-16-2023 Segmented neutrophils/100 WBC (Bld) 76.0 % High 43.0-75.0 [facility] Serum or plasma albumin/glob ulin mass ratioon 10-16-2023 Albumin/Globulin [Mass ratio] 0.8 {ratio} [facility] Serum or plasma anion gap de terminationon 10-16-2023 Anion gap [Moles/Vol] 6.8 mmol/L [facility] Basophils Auto (Bld) [#/Vol] on 10-15-2023 Basophils (Bld) [#/Vol] 0.0 10 3/uL 0.0-0.1 [facility] Basophils/100 WBC Auto (Bld) on 10-15-2023 Basophils/100 WBC (Bld) 0.0 % Low 0.2-2.0 [facility] Cholesterol in LDL Calc [Mas s/Vol]on 10-15-2023 Cholesterol in LDL [Mass/Vol] 39.0 mg/dL [facility] Comment on above: <100 mg/dl [id number] 0-129 mg/dl NEAR OR ABOVE [id number] mg/dl BORDERLINE [id number] mg/dl HIGH>190 mg/dl VERY HIGH Cholesterol in VLDL Calc [Ma ss/Vol]on 10-15-2023 Cholesterol in VLDL [Mass/Vol] 11.2 mg/dL [facility] Eosinophils/100 WBC Auto (Bl d)on 10-15-2023 Eosinophils/100 WBC (Bld) 0.0 % Low 0.9-7.0 [facility] Erythrocyte distribution wid th Auto (RBC) [Ratio]on 10-15-2023 Erythrocyte distribution width (RBC) [Ratio] 12.4 % 11.0-15.0 [facility] Estimated glomerular filtrat ion rate (GFR) non- Americanon 10-15-2023 GFR/1.73 sq M.predicted among non-blacks MDRD (S/P/Bld) [Vol rate/Area] mL/min/{1.73_m2} >=60 [facility] Globulin Calc (S) [Mass/Vol] on 10-15-2023 Globulin (S) [Mass/Vol] 3.5 g/dL [facility] Hematocrit Auto (Bld) [Volum e fraction]on 10-15-2023 Hematocrit (Bld) [Volume fraction] 28.8 % Low 42.0-54.0 [facility] Hemoglobin [Mass/volume] in Bloodon 10-15-2023 Hemoglobin (Bld) [Mass/Vol] 9.6 g/dL Low 14.0-18.0 [facility] Laboratory - Chemistry and C hemistry - challengeon 10-15-2023 Albumin [Mass/Vol] 2.9 g/dL Low 3.4-5.0 [facility] ALP [Catalytic activity/Vol] 100 U/L 46-116 [facility] ALT [Catalytic activity/Vol] 50 U/L 16-63 [facility] AST [Catalytic activity/Vol] 27 U/L 15-37 [facility] Bilirubin [Mass/Vol] 0.8 mg/dL 0.2-1.0 [facility] Calcium [Mass/Vol] 8.7 mg/dL 8.5-10.1 [facility] Chloride [Moles/Vol] 99 mmol/L 98-107 [facility] Cholesterol [Mass/Vol] 89 mg/dL <=200 [facility] Cholesterol in HDL [Mass/Vol] 39 mg/dL Low 40-60 [facility] Comment on above: > or =60 mg/dl - LOW CARDIOVASCULAR RISK<40 mg/dl - HIGH CARDIOVASCULAR RISK CO2 [Moles/Vol] 26.8 mmol/L 21.0-32.0 [facility] Creatinine [Mass/Vol] 0.83 mg/dL 0.70-1.30 [facility] GFR/1.73 sq M.predicted MDRD (S/P/Bld) [Vol rate/Area] mL/min/{1.73_m2} >=60 [facility] Glucose [Mass/Vol] 137 mg/dL High 74-106 [facility] Magnesium [Mass/Vol] 1.6 mg/dL Low 1.8-2.4 [facility] Potassium [Moles/Vol] 3.9 mmol/L 3.5-5.1 [facility] Protein [Mass/Vol] 6.4 g/dL 6.4-8.2 [facility] Sodium [Moles/Vol] 134 mmol/L Low 136-145 [facility] Triglyceride [Mass/Vol] 56 mg/dL <=150 [facility] TSH Qn 0.543 m[IU]/L 0.358-3.74 0 [facility] Urea nitrogen [Mass/Vol] 20.0 mg/dL High 7.0-18.0 [facility] Urea nitrogen/Creatinine [Mass ratio] 24.1 mg/mg [facility] Laboratory - Hematology and Cell countson 10-15-2023 Immature granulocytes/100 WBC (Bld) 0.4 % 0.0-0.5 [facility] Leukocytes [#/volume] correc shyann for nucleated erythrocytes in Blood by Automated counon 10-15-2023 WBC corrected for nucl RBC Auto (Bld) [#/Vol] 8.2 10 3/uL 4.0-11.0 [facility] Lymphocytes Auto (Bld) [#/Vo l]on 10-15-2023 Lymphocytes (Bld) [#/Vol] 0.8 10 3/uL Low 1.2-3.8 [facility] Lymphocytes/100 WBC Auto (Bl d)on 10-15-2023 Lymphocytes/100 WBC (Bld) 9.2 % Low 20.5-60.0 [facility] MCH Auto (RBC) [Entitic mass ]on 10-15-2023 MCH (RBC) [Entitic mass] 30.3 pg 25.9-34.0 [facility] MCHC Auto (RBC) [Mass/Vol]on 10-15-2023 MCHC (RBC) [Mass/Vol] 33.3 g/dL 29.9-35.2 [facility] MCV Auto (RBC) [Entitic vol] on 10-15-2023 MCV (RBC) [Entitic vol] 90.9 fL 80.0-94.0 [facility] Monocytes Auto (Bld) [#/Vol] on 10-15-2023 Monocytes (Bld) [#/Vol] 0.7 10 3/uL 0.3-0.8 [facility] Monocytes/100 WBC Auto (Bld) on 10-15-2023 Monocytes/100 WBC (Bld) 9.0 % 1.7-12.0 [facility] Neutrophils Auto (Bld) [#/Vo l]on 10-15-2023 Neutrophils (Bld) [#/Vol] 6.7 10 3/uL High 1.4-6.5 [facility] Neutrophils/100 WBC Auto (Bl d)on 10-15-2023 Neutrophils/100 WBC (Bld) 81.4 % High 43.0-75.0 [facility] No Panel Informationon 10-14 Troponin I High Sensitivity 214.0 pg/mL High 4.0-76.1 [facility] Comment on above: RESULTS CALLED TO Josue RiveroRN)@BY Adalgisa Doherty,FIRST PRESS OPERATOR at 2236CUT-OFF POINTS HAVE BEEN ESTABLISHED BASED [...] Eosinophils # (Auto) 0.0 10 3/uL 0.0-0.7 [facility] Immature Granulocyte # (Auto) 0.03 10 3/uL 0.00-0.03 [facility] Platelet mean volume Auto (B ld) [Entitic vol]on 10-15-2023 Platelet mean volume (Bld) [Entitic vol] 10.1 fL 9.5-13.5 [facility] Platelets Auto (Bld) [#/Vol] on 10-15-2023 Platelets (Bld) [#/Vol] 152 10 3/uL 150-450 [facility] RBC Auto (Bld) [#/Vol]on RBC (Bld) [#/Vol] 3.17 10 6/uL Low 4.70-6.10 [facility] Serum or plasma albumin/glob ulin mass ratioon 10-15-2023 Albumin/Globulin [Mass ratio] 0.8 {ratio} [facility] Serum or plasma anion gap de terminationon 10-15-2023 Anion gap [Moles/Vol] 12.1 mmol/L [facility] Serum or plasma total choles terol/high density lipoprotein (HDL) cholesterol mass lalo 10-15-2023 Cholesterol.total/Chol esterol in HDL [Mass ratio] 2.3 {ratio} [facility] Comment on above: 3.3 - 4.4 LOW RISK4. 4 - 7.1 AVERAGE RISK7.1 - 11.0 MODERATE RISK>11.0 HIGH RISK 36on 10-14-2023 36 Normal [facility] Activated partial thrombopla stin time (aPTT) in platelet poor plasma by coagulation aon 10-14-2023 aPTT Coag (PPP) [Time] 30.8 s 22.3-36.2 [facility] Basophils Auto (Bld) [#/Vol] on 10-14-2023 Basophils (Bld) [#/Vol] 0.0 10 3/uL 0.0-0.1 [facility] Basophils/100 WBC Auto (Bld) on 10-14-2023 Basophils/100 WBC (Bld) 0.1 % Low 0.2-2.0 [facility] Eosinophils/100 WBC Auto (Bl d)on 10-14-2023 Eosinophils/100 WBC (Bld) 0.1 % Low 0.9-7.0 [facility] Erythrocyte distribution wid th Auto (RBC) [Ratio]on 10-14-2023 Erythrocyte distribution width (RBC) [Ratio] 12.2 % 11.0-15.0 [facility] Estimated glomerular filtrat ion rate (GFR) non- Americanon 10-14-2023 GFR/1.73 sq M.predicted among non-blacks MDRD (S/P/Bld) [Vol rate/Area] mL/min/{1.73_m2} >=60 [facility] Hematocrit Auto (Bld) [Volum e fraction]on 10-14-2023 Hematocrit (Bld) [Volume fraction] 31.6 % Low 42.0-54.0 [facility] Hemoglobin [Mass/volume] in Bloodon 10-14-2023 Hemoglobin (Bld) [Mass/Vol] 10.6 g/dL Low 14.0-18.0 [facility] INR in Platelet poor plasma by Coagulation assayon 10-14-2023 INR Coag (PPP) [Relative time] 1.11 {INR} [facility] Comment on above: DESIRED INR:2.0-3.0 CONDITIONS NOT LISTED BELOW2.5-3.5 FOR PROSTHETIC HEART VALVE REPLACEMENT2.5-3.5 RECURRENT THROMBOSIS Laboratory - Chemistry and C hemistry - challengeon 10-14-2023 Natriuretic peptide B (Bld) [Mass/Vol] 9227.0 pg/mL High <=1800.0 [facility] Comment on above: RESULTS CALLED TO KENDELL LOMBARDI/SHAREE IN ICU Calcium [Mass/Vol] 8.6 mg/dL 8.5-10.1 [facility] Chloride [Moles/Vol] 95 mmol/L Low 98-107 [facility] CO2 [Moles/Vol] 24.6 mmol/L 21.0-32.0 [facility] Creatinine [Mass/Vol] 0.97 mg/dL 0.70-1.30 [facility] GFR/1.73 sq M.predicted MDRD (S/P/Bld) [Vol rate/Area] mL/min/{1.73_m2} >=60 [facility] Glucose [Mass/Vol] 176 mg/dL High 74-106 [facility] Potassium [Moles/Vol] 4.1 mmol/L 3.5-5.1 [facility] Sodium [Moles/Vol] 130 mmol/L Low 136-145 [facility] Urea nitrogen [Mass/Vol] 20.0 mg/dL High 7.0-18.0 [facility] Urea nitrogen/Creatinine [Mass ratio] 20.6 mg/mg [facility] Laboratory - Hematology and Cell countson 10-14-2023 Immature granulocytes/100 WBC (Bld) 0.4 % 0.0-0.5 [facility] Leukocytes [#/volume] correc shyann for nucleated erythrocytes in Blood by Automated counon 10-14-2023 WBC corrected for nucl RBC Auto (Bld) [#/Vol] 15.7 10 3/uL High 4.0-11.0 [facility] Lymphocytes Auto (Bld) [#/Vo l]on 10-14-2023 Lymphocytes (Bld) [#/Vol] 1.4 10 3/uL 1.2-3.8 [facility] Lymphocytes/100 WBC Auto (Bl d)on 10-14-2023 Lymphocytes/100 WBC (Bld) 9.1 % Low 20.5-60.0 [facility] MCH Auto (RBC) [Entitic mass ]on 10-14-2023 MCH (RBC) [Entitic mass] 30.8 pg 25.9-34.0 [facility] MCHC Auto (RBC) [Mass/Vol]on 10-14-2023 MCHC (RBC) [Mass/Vol] 33.5 g/dL 29.9-35.2 [facility] MCV Auto (RBC) [Entitic vol] on 10-14-2023 MCV (RBC) [Entitic vol] 91.9 fL 80.0-94.0 [facility] Monocytes Auto (Bld) [#/Vol] on 10-14-2023 Monocytes (Bld) [#/Vol] 1.5 10 3/uL High 0.3-0.8 [facility] Monocytes/100 WBC Auto (Bld) on 10-14-2023 Monocytes/100 WBC (Bld) 9.6 % 1.7-12.0 [facility] Neutrophils Auto (Bld) [#/Vo l]on 10-14-2023 Neutrophils (Bld) [#/Vol] 12.7 10 3/uL High 1.4-6.5 [facility] Neutrophils/100 WBC Auto (Bl d)on 10-14-2023 Neutrophils/100 WBC (Bld) 80.7 % High 43.0-75.0 [facility] No Panel Informationon 10-13 Troponin I High Sensitivity 279.3 pg/mL High 4.0-76.1 [facility] Comment on above: RESULTS CALLED TO [...] Eosinophils # (Auto) 0.0 10 3/uL 0.0-0.7 [facility] Immature Granulocyte # (Auto) 0.07 10 3/uL High 0.00-0.03 [facility] Platelet mean volume Auto (B ld) [Entitic vol]on 10-14-2023 Platelet mean volume (Bld) [Entitic vol] 10.1 fL 9.5-13.5 [facility] Platelets Auto (Bld) [#/Vol] on 10-14-2023 Platelets (Bld) [#/Vol] 191 10 3/uL 150-450 [facility] Prothrombin time (PT)on PT Coag (PPP) [Time] 11.6 s 9.0-11.6 [facility] RBC Auto (Bld) [#/Vol]on RBC (Bld) [#/Vol] 3.44 10 6/uL Low 4.70-6.10 [facility] Serum or plasma anion gap de terminationon 10-14-2023 Anion gap [Moles/Vol] 14.5 mmol/L [facility] Telephoneon 10-14-2023 Telephone Normal [facility] 30on 10-13-2023 30 Normal [facility] 30 Normal [facility] CBCon 10-13-2023 Erythrocyte distribution width (RBC) [Ratio] 12.6 % Normal 11.5-15.0 [facility] Comment on above: Performed By: #### L [id number] ####[facility] (BEAKER)[address] [place] [address] ERYTHROCYTE MEAN CORPUSCULAR HEMOGLOBIN CONCENTRATION (G/DL) BY AUTOMATED 33.0 g/dL Normal 32.0-35.0 [facility] Comment on above: Performed By: #### L [id number] ####[facility] (BEAKER)[address] [place] [address] Hematocrit (Bld) [Volume fraction] 29.4 % Low 39.0-55.0 [facility] Comment on above: Performed By: #### L [id number] ####[facility] (BEAKER)[address] [place] [address] Hemoglobin (Bld) [Mass/Vol] 9.7 g/dL Low 13.0-17.0 [facility] Comment on above: Performed By: #### L [id number] ####[facility] [place] [address] MCH (RBC) [Entitic mass] 30.9 pg Normal 27.0-33.0 [facility] Comment on above: Performed By: #### L [id number] ####[facility] ([facility])[address] [place] [address] MCV (RBC) [Entitic vol] 93.6 fL Normal 82.0-98.0 [facility] Comment on above: Performed By: #### L [id number] ####[facility] ([facility])[address] [place] [address] PLATELETS (10*3/UL) IN BLOOD AUTOMATED COUNT 141 10*3/uL Low 150-400 [facility] Comment on above: Performed By: #### L [id number] ####[facility] ([facility])[address] [place] [address] RBC (Bld) [#/Vol] 3.14 10*6/uL Low 4.20-5.70 [facility] Comment on above: Performed By: #### L [id number] ####[facility] [place] [address] WBC (Bld) [#/Vol] 14.01 10*3/uL High 4.00-10.60 [facility] Comment on above: Performed By: #### L [id number] ####[facility] (BEAKER)[address] [place] [address] COMPREHENSIVE METABOLIC PANE Santo 10-13-2023 Albumin [Mass/Vol] 3.4 g/dL Low 3.5-5.7 [facility] Comment on above: Performed By: #### L [id number] ####[facility] (BEAKER)[address] [place] [address] ALP [Catalytic activity/Vol] 89 U/L Normal 34-104 [facility] Comment on above: Performed By: #### L [id number] ####[facility] ([facility])[address] [place] [address] ALT [Catalytic activity/Vol] 52 U/L Normal 7-52 [facility] Comment on above: Performed By: #### L [id number] ####[facility] ([facility])[address] [place] [address] Anion gap [Moles/Vol] 12 mmol/L Normal 7-20 [facility] Comment on above: Performed By: #### L [id number] ####[facility] ([facility])[address] [place] [address] AST [Catalytic activity/Vol] 60 U/L High 13-39 [facility] Comment on above: Performed By: #### L [id number] ####[facility] ([facility])[address] [place] [address] Bilirubin [Mass/Vol] 0.8 mg/dL Normal 0.3-1.0 [facility] Comment on above: Performed By: #### L [id number] ####[facility] ([facility])[address] [place] [address] Calcium [Mass/Vol] 8.3 mg/dL Low 8.6-10.3 [facility] Comment on above: Performed By: #### L [id number] ####[facility] ([facility])[address] [place] [address] Chloride [Moles/Vol] 104 mmol/L Normal 98-107 [facility] Comment on above: Performed By: #### L [id number] ####[facility] [place] [address] CO2 [Moles/Vol] 22 mmol/L Normal 21-31 [facility] Comment on above: Performed By: #### L [id number] ####[facility] ([facility])[address] [place] [address] Creatinine [Mass/Vol] 0.74 mg/dL Normal 0.70-1.30 [facility] Comment on above: Performed By: #### L [id number] ####[facility] ([facility])[address] [place] [address] GLOMERULAR FILTRATION RATE ML/MIN/1.73 SQ M.PREDICTED 91.0 mL/min/1.73m*2 Normal >60.0 [facility] Comment on above: Result Comment: [facility]???s estimated glomerular filtration rate (eGFR) will [...] individuals. Performed By: #### L [id number] ####[facility] ([facility])[address] [place] [address] Glucose [Mass/Vol] 116 mg/dL High 70-100 [facility] Comment on above: Performed By: #### L [id number] ####[facility] ([facility])[address] [place] [address] Potassium [Moles/Vol] 4.4 mmol/L Normal 3.5-5.1 [facility] Comment on above: Performed By: #### L [id number] ####[facility] ([facility])[address] [place] [address] Protein [Mass/Vol] 5.9 g/dL Low 6.0-8.3 [facility] Comment on above: Performed By: #### L [id number] ####[facility] ([facility])[address] [place] [address] Sodium [Moles/Vol] 134 mmol/L Low 136-145 [facility] Comment on above: Performed By: #### L [id number] ####[facility] ([facility])[address] [place] [address] Urea nitrogen [Mass/Vol] 17 mg/dL Normal 7-25 [facility] Comment on above: Performed By: #### L [id number] ####[facility] ([facility])[address] [place] [address] UREA NITROGEN/CREATININE (MASS RATIO) IN SER/PLAS 23.0 [facility] Comment on above: Performed By: #### L [id number] ####[facility] ([facility])[address] [place] [address] DSon 10-13-2023 DS Normal [facility] MAGNESIUMon 10-13-2023 Magnesium [Mass/Vol] 1.5 mg/dL Low 1.9-2.7 [facility] Comment on above: Performed By: #### L [id number] ####[facility] ([facility])[address] [place] [address] PHOSPHORUSon 10-13-2023 Magnesium [Mass/Vol] 4.2 mg/dL Normal 2.5-5.0 [facility] Comment on above: Performed By: #### L [id number] ####[facility] ([facility])[address] [place] [address] PROTIME-INRon 10-13-2023 INR IN PPP BY COAGULATION ASSAY 1.17 High 0.90-1.10 [facility] Comment on above: Result Comment: ACCC P RECOMMENDED INR FOR WARFARIN THERAPY CONDITION INRPROPHYLAXIS OF VENOUS THROMBOSIS 2-3(HIGH-RISK SURGERY)TREATMENT OF VENOUS THROMBOSIS 2-3TREATMENT OF PULMONARY EMBOLISM 2-3PREVENTION OF SYSTEMIC EMBOLISM: 2-3 ACUTE MYOCARDIAL INFARCTION TISSUE HEART VALVES VALVULAR HEART DISEASE ATRIAL FIBRILLATION RECURRENT SYSTEMIC EMBOLISMMECHANICAL HEART VALVE 2.5-3.5 FROM: ORAL ANTICOAGULANTS. MECHANISM OF ACTION, CLINICAL EFFECTIVENESS, AND OPTIMAL THERAPEUTIC RANGE. CHEST 1995;108:231S-246S. Performed By: #### L [id number] ####[facility] ([facility])[address] [place] [address] PROTHROMBIN TIME (PT) IN PPP BY COAGULATION ASSAY 14.8 Seconds Normal 12.3-14.8 [facility] Comment on above: Performed By: #### L [id number] ####[facility] ([facility])[address] [place] [address] [id number] 10-12-2023 [id number] Normal [facility] 30on 10-12-2023 30 Normal [facility] 30 Normal [facility] ANESon 10-12-2023 ANES Normal [facility] APTTon 10-12-2023 ACTIVATED PARTIAL THROMBOPLASTIN TIME IN PPP BY COAGULATION ASSAY 32.1 Seconds Normal 25.0-35.0 [facility] Comment on above: Order Comment: In PA CU Result Comment: Clin ical significance of the APTT is questionable in the presence of heparin. Performed By: #### L [id number] ####[facility] ([facility])[address] [place] [address] ARTERIAL BLOOD GAS WITH CO-O XIMETRYon 10-12-2023 Base excess Calc (Bld) [Moles/Vol] -4.3000 mmol/L Low -2.0-3.0 [facility] Comment on above: Order Comment: In PA CU Performed By: #### L [id number] ####[facility] [id number] [place] [address] [place] CARBOXYHEMOGLOBIN/HEMO GLOBIN TOTAL % IN BLOOD 1.2 % Normal 0.0-3.0 [facility] Comment on above: Order Comment: In PA CU Performed By: #### L [id number] ####[facility] [id number] [place] [address] [place] CO2 (Bld) [Partial pressure] 42 mm[Hg] Normal 35-48 [facility] Comment on above: Order Comment: In PA CU Performed By: #### L [id number] ####[facility] [id number] [place] [address] [place] DEOXYGENATED HEMOGLOBIN IN BLOOD 0.3 % Low 1-5 [facility] Comment on above: Order Comment: In PA CU Performed By: #### L [id number] ####[facility] RESPIR[facility] [id number] [place] [address] [place] HCO3 (Bld) [Moles/Vol] 21.6 mmol/L Normal 21.0-28.0 [facility] Comment on above: Order Comment: In PA CU Performed By: #### L [id number] ####[facility] RESP[facility] [id number] [place] [address] [place] Hemoglobin (Bld) [Mass/Vol] 9.5 g/dL Low 11.7-17.4 [facility] Comment on above: Order Comment: In PA CU Performed By: #### L [id number] ####[facility] RESPIR[facility] [id number] [place] [address] [place] LPM 4 Normal [facility] Comment on above: Order Comment: In PA CU Performed By: #### L [id number] ####[facility] RESP[facility] [id number] [place] [address] [place] METHEMOGLOBIN/100 IN BLOOD 0.0 % Normal 0.0-1.5 [facility] Comment on above: Order Comment: In PA CU Performed By: #### L [id number] ####[facility] RESPIRATORY [id number] [place] [address] [place] Oxygen (Bld) [Partial pressure] 137 mm[Hg] High 83-100 [facility] Comment on above: Order Comment: In PA CU Performed By: #### L [id number] ####[facility] RESPIR[facility] [id number] [place] [address] [place] OXYGEN SATURATION (%) IN ARTERIAL BLOOD 99.7 % High 94.0-98.0 [facility] Comment on above: Order Comment: In PA CU Performed By: #### L [id number] ####[facility] RESPIR[facility] [id number] [place] [address] [place] OXYGENATED HEMOGLOBIN IN BLOOD 98.4 % High 90.0-95.0 [facility] Comment on above: Order Comment: In PA CU Performed By: #### L [id number] ####[facility] RESP[facility] [id number] [place] [address] [place] pH (Bld) 7.32 [pH] Low 7.35-7.45 [facility] Comment on above: Order Comment: In PA CU Performed By: #### L [id number] ####[facility] RESP[facility] [id number] [place] [address] [facility] SOURCE OF OXYGEN Nasal cannula Normal [facility] Comment on above: Order Comment: In PA CU Performed By: #### L [id number] ####[facility] RESPIR[facility] [id number] [place] [address] [facility] CBCon 10-12-2023 Erythrocyte distribution width (RBC) [Ratio] 12.5 % Normal 11.5-15.0 [facility] Comment on above: Order Comment: In PA CU Performed By: #### L [id number] ####[facility] HOSPITAL LAB (BEAKER)[address] [place] [address] ERYTHROCYTE MEAN CORPUSCULAR HEMOGLOBIN CONCENTRATION (G/DL) BY AUTOMATED 32.4 g/dL Normal 32.0-35.0 [facility] Comment on above: Order Comment: In PA CU Performed By: #### L [id number] ####[facility] HOSP[facility] LAB (BEAKER)[address] [place] [address] Hematocrit (Bld) [Volume fraction] 28.4 % Low 39.0-55.0 [facility] Comment on above: Order Comment: In PA CU Performed By: #### L [id number] ####[facility] LAB (BEAKER)[address] [place] [address] Hemoglobin (Bld) [Mass/Vol] 9.2 g/dL Low 13.0-17.0 [facility] Comment on above: Order Comment: In PA CU Performed By: #### L [id number] ####[facility] [place] [address] [facility] ([facility]) [Entitic mass] 30.6 pg Normal 27.0-33.0 [facility] Comment on above: Order Comment: In PA CU Performed By: #### L [id number] ####[facility] ([facility])[address] [place] [address] MCV (RBC) [Entitic vol] 94.4 fL Normal 82.0-98.0 [facility] Comment on above: Order Comment: In PA CU Performed By: #### L [id number] ####[facility] ([facility])[address] [place] [address] PLATELETS (10*3/UL) IN BLOOD AUTOMATED COUNT 130 10*3/uL Low 150-400 [facility] Comment on above: Order Comment: In PA CU Performed By: #### L [id number] ####[facility] ([facility])[address] [place] [address] RBC (Bld) [#/Vol] 3.01 10*6/uL Low 4.20-5.70 [facility] Comment on above: Order Comment: In PA CU Performed By: #### L [id number] ####[facility] [place] [address] WBC (Bld) [#/Vol] 10.46 10*3/uL Normal 4.00-10.60 [facility] Comment on above: Order Comment: In PA CU Performed By: #### L [id number] ####[facility] (BE[facility]ER)[address] [place] [address] COMPREHENSIVE METABOLIC PANE Santo 10-12-2023 Albumin [Mass/Vol] 3.3 g/dL Low 3.5-5.7 [facility] Comment on above: Order Comment: In PA CU Performed By: #### L [id number] ####[facility] ([facility])[address] [place] [address] ALP [Catalytic activity/Vol] 84 U/L Normal 34-104 [facility] Comment on above: Order Comment: In PA CU Performed By: #### L [id number] ####[facility] ([facility])[address] [place] [address] ALT [Catalytic activity/Vol] 53 U/L High 7-52 [facility] Comment on above: Order Comment: In PA CU Performed By: #### L [id number] ####[facility] ([facility])[address] [place] [address] Anion gap [Moles/Vol] 11 mmol/L Normal 7-[address] [facility] Comment on above: Order Comment: In PA CU Performed By: #### L [id number] ####[facility] ([facility])[address] [place] [address] AST [Catalytic activity/Vol] 63 U/L High 13-39 [facility] Comment on above: Order Comment: In PA CU Performed By: #### L [id number] ####[facility] [place] [address] Bilirubin [Mass/Vol] 0.9 mg/dL Normal 0.3-1.0 [facility] Comment on above: Order Comment: In PA CU Performed By: #### L [id number] ####[facility] [place] [address] Calcium [Mass/Vol] 7.9 mg/dL Low 8.6-10.3 [facility] Comment on above: Order Comment: In PA CU Performed By: #### L [id number] ####[facility] ([facility])[address] [place] [address] Chloride [Moles/Vol] 107 mmol/L Normal 98-107 [facility] Comment on above: Order Comment: In PA CU Performed By: #### L [id number] ####[facility] [place] [address] CO2 [Moles/Vol] 22 mmol/L Normal 21-31 [facility] Comment on above: Order Comment: In PA CU Performed By: #### L [id number] ####[facility] ([facility])[address] [place] [address] Creatinine [Mass/Vol] 0.73 mg/dL Normal 0.70-1.30 [facility] Comment on above: Order Comment: In PA CU Performed By: #### L [id number] ####[facility] ([facility])[address] [place] [address] GLOMERULAR FILTRATION RATE ML/MIN/1.73 SQ M.PREDICTED 91.4 mL/min/1.73m*2 Normal >60.0 [facility] Comment on above: Order Comment: In PA CU Result Comment: The [facility]???s estimated glomerular filtration rate (eGFR) will [...] individuals. Performed By: #### L [id number] ####[facility] ([facility])[address] [place] [address] Glucose [Mass/Vol] 160 mg/dL High 70-100 [facility] Comment on above: Order Comment: In PA CU Performed By: #### L [id number] ####[facility] ([facility])[address] [place] [address] Potassium [Moles/Vol] 4.4 mmol/L Normal 3.5-5.1 [facility] Comment on above: Order Comment: In PA CU Performed By: #### L [id number] ####[facility] ([facility])[address] [place] [address] Protein [Mass/Vol] 5.7 g/dL Low 6.0-8.3 [facility] Comment on above: Order Comment: In PA CU Performed By: #### L [id number] ####[facility] ([facility])[address] [place] [address] Sodium [Moles/Vol] 136 mmol/L Normal 136-145 [facility] Comment on above: Order Comment: In PA CU Performed By: #### L [id number] ####[facility] ([facility])[address] [place] [address] Urea nitrogen [Mass/Vol] 18 mg/dL Normal 7-25 [facility] Comment on above: Order Comment: In PA CU Performed By: #### L [id number] ####[facility] ([facility])[address] [place] [address] UREA NITROGEN/CREATININE (MASS RATIO) IN SER/PLAS 24.7 Normal [facility] Comment on above: Order Comment: In PA CU Performed By: #### L [id number] ####[facility] ([facility])[address] [place] [address] HISTOLOGY - TISSUE EXAMon LAB AP CASE REPORT Normal [facility] Comment on above: Order Comment: 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] Result Comment: Surg ical Pathology Case: [id number] Provider: Amber Bryant MD Collected: 10/12/2023 1204Ordering Location: [facility] Main Operating Room Received: 10/12/2023 1233Pathologist: Marya Hudson MDIntraop: KATE Orozcopecimens: A) - Common Bile Duct, CYSTIC DUCT MARGIN B) - Gallbladder, GALLBLADDER AND PORTION OF SEGMENT 4/5 Performed By: #### L [id number] ####[facility] ([facility])[address] [place] [address] LAB AP CLINICAL INFORMATION Normal [facility] Comment on above: Order Comment: 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 The specimen is submitted for frozen section and examined intraoperatively for malignancy. The specimen is submitted entirely in 1 cassette.Quiana Newberry M.D., PGY-1B. Gallbladder.Received fresh for frozen section labeled Chico Baker [...] of the frozen tissue is submitted in B1.The gallbladder is opened along the previous incision by the surgeon. The mucosal surface is galicia-pink and velvety. The cut surface of the defect reveals a galicia, wrinkled cystic cavity containing 3-4 black choleliths. Office Machine Mechanic sections are submitted as follows:B2: Soft tissue around cystic duct marginB3-5: Entire cystic defect with attached liverB6: Office Machine Mechanic section from grossly unremarkable gallbladder neckB7: Office Machine Mechanic sections from grossly unremarkablegallbladder body and fundusCaroline Saloni Newberry, PGY-1 Performed By: #### L [id number] ####[facility] [place] [address] LAB AP INTRAOPERATIVE CONSULTATION [facility] Comment on above: Order Comment: 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 C ommon Bile Duct.Resulted 12:53 PM 10/12/23Gallbladder, cystic duct margin, biopsy: - No malignancy identifiedIntraoperative Consultation by: Luana Rivas MDB. Gallbladder.Resulted 2:58 pm 10/12/23Gallbladder, cholecystectomy: - No malignancy identifiedIntraoperative Consultation by: Luana Rivas MD Performed By: #### L [id number] ####[facility] ([facility])[address] [place] [address] LAB AP MICROSCOPIC DESCRIPTION Microscopic examination performed. 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 C ystic duct margin, resection:- Segment of cystic duct with denuded surface epithelium.- Negative for carcinoma.B. Gallbladder, cholecystectomy:- Chronic cholecystitis with cholelithiasis.- Focal cystic dilatation of gallbladder and possible sinus tract/fistula, seen grossly.- Negative for carcinoma. Performed By: #### L [id number] ####[facility] (BEAKER)[address] [place] [address] HPon 10-12-2023 HP H&P reviewed. The pa tient was examined and there are no changes to the H&P. Normal [facility] MAGNESIUMon 10-12-2023 Magnesium [Mass/Vol] 1.4 mg/dL Low 1.9-2.7 [facility] Comment on above: Order Comment: In PA CU Performed By: #### L [id number] ####[facility] ([facility])[address] [place] [address] OPNOTEon 10-12-2023 OPNOTE Normal [facility] PHOSPHORUSon 10-12-2023 Magnesium [Mass/Vol] 3.5 mg/dL Normal 2.5-5.0 [facility] Comment on above: Order Comment: In PA CU Performed By: #### L [id number] ####[facility] ([facility])[address] [place] [address] POCT GLUCOSE METER UNSOLICIT ED RESULTSon 10-12-2023 Glucose [Mass/Vol] 115 mg/dL High 70-105 [facility] Comment on above: Order Comment: Waive d Testing in the ED is performed under the ED CLIA certificate #[id number]. Result Comment: spin zon Performed By: #### L [id number] ####[facility] ([facility])[address] [place] [address] POCT PERFUSION PANEL UNSOLIC ITED RESULTSon 10-12-2023 CO2 [Moles/Vol] 21.0 mmol/L Normal 21.0-29.0 [facility] Comment on above: Performed By: #### L [id number] ####[facility] ([facility])[address] [place] [address] Glucose [Mass/Vol] 132 mg/dL High 70-105 [facility] Comment on above: Performed By: #### L [id number] ####[facility] ([facility])[address] [place] [address] HCO3 (Bld) [Moles/Vol] 19.3 mmol/L Low 23.0-28.0 U [facility] Comment on above: Performed By: #### L [id number] ####[facility] ([facility])[address] [place] [address] Hematocrit (Bld) [Volume fraction] 24 % Low 38-51 [facility] Comment on above: Performed By: #### L [id number] ####[facility] ([facility])[address] [place] [address] Hemoglobin (Bld) [Mass/Vol] 8.2 g/dL Low 12.0-17.0 [facility] Comment on above: Performed By: #### L [id number] ####[facility] ([facility])[address] [place] [address] POCT BASE EXCESS -7.0 mmol/L Low -2.0-3.0 [facility] Comment on above: Performed By: #### L [id number] ####[facility] ([facility])[address] [place] [address] POCT IONIZED CALCIUM 1.11 mmol/L Low 1.12-1.32 [facility] Comment on above: Performed By: #### L [id number] ####[facility] ([facility])[address] [place] [address] POCT PCO2 43.3 mmHg Normal 41.0-51.0 [facility] Comment on above: Performed By: #### L [id number] ####[facility] ([facility])[address] [place] [address] POCT PH 7.26 Low 7.31-7.41 [facility] Comment on above: Performed By: #### L [id number] ####[facility] ([facility])[address] [place] [address] POCT PO2 224 mmHg High 80-105 [facility] Comment on above: Performed By: #### L [id number] ####[facility] ([facility])[address] [place] [address] POCT SO2 100 % High 95-98 [facility] Comment on above: Performed By: #### L [id number] ####[facility] ([facility])[address] [place] [address] Potassium [Moles/Vol] 4.0 mmol/L Normal 3.5-4.9 [facility] Comment on above: Performed By: #### L [id number] ####[facility] ([facility])[address] [place] [address] Sodium [Moles/Vol] 140 mmol/L Normal 138.0-146 . 0 [facility] Comment on above: Performed By: #### L [id number] ####[facility] (BE[facility]ER)[address] [place] [address] CO2 [Moles/Vol] 21.0 mmol/L Normal 21.0-29.0 [facility] Comment on above: Performed By: #### L [id number] ####[facility] (BE[facility]ER)[address] [place] [address] Glucose [Mass/Vol] 146 mg/dL High 70-105 [facility] Comment on above: Performed By: #### L [id number] ####[facility] (BE[facility]ER)[address] [place] [address] HCO3 (Bld) [Moles/Vol] 19.6 mmol/L Low 23.0-28.0 [facility] Comment on above: Performed By: #### L [id number] ####[facility] ([facility])[address] [place] [address] Hematocrit (Bld) [Volume fraction] 29 % Low 38-51 [facility] Comment on above: Performed By: #### L [id number] ####[facility] ([facility])[address] [place] [address] Hemoglobin (Bld) [Mass/Vol] 9.9 g/dL Low 12.0-17.0 [facility] Comment on above: Performed By: #### L [id number] ####[facility] ([facility])[address] [place] [address] POCT BASE EXCESS -5.0 mmol/L Low -2.0-3.0 [facility] Comment on above: Performed By: #### L [id number] ####[facility] ([facility]ER)[address] [place] [address] POCT IONIZED CALCIUM 1.12 mmol/L Normal 1.12-1.32 [facility] Comment on above: Performed By: #### L [id number] ####[facility] ([facility])[address] [address] POCT PCO2 33.9 mmHg Low 41.0-51.0 [facility] Comment on above: Performed By: #### L [id number] ####[facility] [address] POCT PH 7.37 Normal 7.31-7.41 [facility] Comment on above: Performed By: #### L [id number] ####[facility] ([facility])[address] [address] POCT PO2 230 mmHg High 80-105 [facility] Comment on above: Performed By: #### L [id number] ####[facility] (BE[facility]ER)[address] [address] POCT SO2 100 % High 95-98 [facility] Comment on above: Performed By: #### L [id number] ####[facility] [address] Potassium [Moles/Vol] 4.2 mmol/L Normal 3.5-4.9 [facility] Comment on above: Performed By: #### L [id number] ####[facility] ([facility])[address] [address] Sodium [Moles/Vol] 136 mmol/L Low 138.0-146 . 0 [facility] Comment on above: Performed By: #### L [id number] ####[facility] (BEAKER)[address] [address] CO2 [Moles/Vol] 25.0 mmol/L Normal 21.0-29.0 [facility] Comment on above: Performed By: #### L [id number] ####[facility] ([facility]ER)[address] [place] [address] Glucose [Mass/Vol] 162 mg/dL High 70-105 [facility] Comment on above: Performed By: #### L [id number] ####[facility] [address] HCO3 (Bld) [Moles/Vol] 23.4 mmol/L Normal 23.0-28.0 [facility] Comment on above: Performed By: #### L [id number] ####[facility] [place] [address] Hematocrit (Bld) [Volume fraction] 32 % Low 38-51 [facility] Comment on above: Performed By: #### L [id number] ####[facility] (BEAKER)[address] [place] [address] Hemoglobin (Bld) [Mass/Vol] 10.9 g/dL Low 12.0-17.0 [facility] Comment on above: Performed By: #### L [id number] ####[facility] (BEAKER)[address] [place] [address] POCT BASE EXCESS -2.0 mmol/L Normal -2.0-3.0 [facility] Comment on above: Performed By: #### L [id number] ####[facility] (BEAKER)[address] [place] [address] POCT IONIZED CALCIUM 1.20 mmol/L Normal 1.12-1.32 [facility] Comment on above: Performed By: #### L [id number] ####[facility] (BE[facility]ER)[address] [place] [address] POCT PCO2 43.6 mmHg Normal 41.0-51.0 [facility] Comment on above: Performed By: #### L [id number] ####[facility] [place] [address] POCT PH 7.34 Normal 7.31-7.41 [facility] Comment on above: Performed By: #### L [id number] ####[facility] [place] [address] POCT PO2 225 mmHg High 80-105 [facility] Comment on above: Performed By: #### L [id number] ####[facility] ([facility])[address] [place] [address] POCT SO2 100 % High 95-98 [facility] Comment on above: Performed By: #### L [id number] ####[facility] ([facility])[address] [place] [address] Potassium [Moles/Vol] 4.4 mmol/L Normal 3.5-4.9 [facility] Comment on above: Performed By: #### L [id number] ####[facility] ([facility])[address] [place] [address] Sodium [Moles/Vol] 133 mmol/L Low 138.0-146 . 0 [facility] Comment on above: Performed By: #### L [id number] ####[facility] ([facility])[address] [place] [address] PROTIME-INRon 10-12-2023 INR IN PPP BY COAGULATION ASSAY 1.19 High 0.90-1.10 [facility] Comment on above: Order Comment: In PA CU Result Comment: ACCC P RECOMMENDED INR FOR WARFARIN THERAPY CONDITION INRPROPHYLAXIS OF VENOUS THROMBOSIS 2-3(HIGH-RISK SURGERY)TREATMENT OF VENOUS THROMBOSIS 2-3TREATMENT OF PULMONARY EMBOLISM 2-3PREVENTION OF SYSTEMIC EMBOLISM: 2-3 ACUTE MYOCARDIAL INFARCTION TISSUE HEART VALVES VALVULAR HEART DISEASE ATRIAL FIBRILLATION RECURRENT SYSTEMIC EMBOLISMMECHANICAL HEART VALVE 2.5-3.5 FROM: ORAL ANTICOAGULANTS. MECHANISM OF ACTION, CLINICAL EFFECTIVENESS, AND OPTIMAL THERAPEUTIC RANGE. CHEST 1995;108:231S-246S. Performed By: #### L [id number] ####[facility] ([facility])[address] [place] [address] PROTHROMBIN TIME (PT) IN PPP BY COAGULATION ASSAY 15.0 Seconds High 12.3-14.8 [facility] Comment on above: Order Comment: In PA CU Performed By: #### L [id number] ####[facility] [place] [address] HPon 10-06-2023 HP Normal [facility] ANESon 09-23-2023 ANES [facility] ANTI C3 DATon 09-17-2023 ANTI C3 ASHLEY Negative [facility] Comment on above: Order Comment: 2 uni ts Performed By: #### L [id number] ####[facility], ANTI IGG DATon 09-17-2023 ANTI IGG ASHLEY Negative [facility] Comment on above: Order Comment: 2 uni ts Performed By: #### L [id number] ####[facility], ANTIBODY IDENTIFICATIONon ANTIBODY IDENTIFICATION [facility] Comment on above: Order Comment: 2 uni ts Performed By: #### L [id number] ####[facility], Labon 09-17-2023 Lab Normal [facility] TYPE AND SCREENon 09-17-2023 AB SCREEN Positive [facility] Comment on above: Order Comment: 2 uni ts Performed By: #### L [id number] ####[facility], ABO group Nom (Bld) A [facility] Comment on above: Order Comment: 2 uni ts Performed By: #### L [id number] ####[facility], RH TYPE IN BLOOD Positive Normal [facility] Comment on above: Order Comment: 2 uni ts Performed By: #### L [id number] ####[facility] B[facility], Abstracton 09-14-2023 Abstract Normal [facility] Abstracton 09-13-2023 Abstract Normal [facility] echo limitedon [facility] echo limited [facility] [place] [address] Echocardiogram Signed Patient: Chico Baker MR#: [id number] : 1940 Acct:[id number] Age/Sex: 83 / M ADM Date: 08/31/23 Loc: Room: Type: [facility] Attending Dr: Sheri Christiansen MD Ordering Provider: Sheri Christiansen MD Date of Service: 08/31/23 [facility] echo limited: I35.0 - Nonrheumatic aortic [...] mmHg Transcribed By: SCV Performed At: 08/31/23 1453 Signed By: Judah Harrington MD 08/31/23 1723 Normal [facility] FPG ECG *CARDIOLOGY ONLY*on 08-19-2023 FPG ECG *CARDIOLOGY ONLY* [facility] [place] [address] Electrocardiograph Report Signed Patient: Chico Baker MR#: [id number] : 1940 Acct:[id number] Age/Sex: 83 / M ADM Date: 08/19/23 Loc: EKGCARDIO Room: Type: [employer] Attending Dr: Sheri Christiansen MD Ordering Provider: [...] rhythm Normal ECG Confirmed by Sheri Christiansen ([id number]) on 08/20/2023 12:14:54 AM Referred By: Electronically Signed By:Sheri Christiansen Transcribed By: MUS Signed By Sheri Christiansen MD 4 0014 Normal [facility] CT angio abdomen pelvison CT angio abdomen pelvis [facility] [place] [address] [place] [address] CT Scan Report Signed Patient: Chico Baker MR#: [id number] : 1940 Acct:[id number] Age/Sex: 83 / M ADM Date: 06/16/23 Loc: CT Room: [facility] [...] aortic 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 Performed By: #### I SCRE #### [address] No Panel InformationOrdered By: Raul Quan on 06-16-2023 Bedside Estimated GFR (eGFR) > 60.0 [facility] Whole blood creatinine measu rementOrdered By: Raul Quan on 06-16-2023 Creatinine [Mass/Vol] 0.9 mg/dL Normal 0.6-1.3 [facility] Comment on above: ER/ESD physician is notified/shown all ISTAT results.Critical values may be confirmed by laboratory testing ifdeemed necessary by ER attending doctor. Result Comment: ER/E SD physician is notified/shown all ISTAT results. Critical values may be confirmed by laboratory testing if deemed necessary by ER attending doctor. Performed By: #### I SCRE #### [address] Calculus Analysison 05-12-19 24 Calcium oxalate dihydrate Infrared spectroscopy (Stone) [Mass fraction] 20 % Invalid Interpretation Code [facility] Comment on above: Performed By: #### 1 [id number] ####[facility] [address] [place] [address] Calcium oxalate monohydrate (Stone) [Mass fraction] 80 % Invalid Interpretation Code [facility] Comment on above: Performed By: #### 1 [id number] ####[facility] [address] [place] [address] Color (Stone) Brown Invalid Interpretation Code [facility] Comment on above: Performed By: #### 1 [id number] ####[facility] [address] [place] [address] Composition Comment Invalid Interpretation Code [facility] Comment on above: Result Comment: Perc entage (Represents the % composition) Performed By: #### 1 [id number] ####[facility] [address] [place] [address] Disclaimer: Comment Invalid Interpretation Code [facility] Comment on above: Result Comment: This test was developed and its performance characteristics determined by [facility]. It has not been cleared or approved by the Food and Drug Administration. Performed at: [address] [id number] Emanuel Jake Silverman Performed By: #### 1 [id number] ####[address] [place] [address] Laboratory comment Daniel (Report) Comment Invalid Interpretation Code [facility] Comment on above: Result Comment: Phys ician questions regarding Calculi Analysis contact [facility] at: [phone]. Performed By: #### 1 [id number] ####[address] [address] Please Note: Comment Invalid Interpretation Code [facility] Comment on above: Result Comment: Calc melissa report will follow via computer, mail or chief nurse executive delivery. Performed By: #### 1 [id number] ####[address] [address] Size (Stone) [Entitic vol] 2x3 Invalid Interpretation Code [facility] Comment on above: Result Comment: Mult iple pieces received. Dimensions of the largest piece reported. Performed By: #### 1 [id number] ####[address] [address] Specimen source subject Nom Comment Invalid Interpretation Code [facility] Comment on above: Result Comment: Not provided Performed By: #### 1 [id number] ####[address] [place] [address] Stone Photo Comment Invalid Interpretation Code [facility] Comment on above: Result Comment: Phot ograph will follow under a separate cover Performed By: #### 1 [id number] ####[address] [place] [address] Weight (Stone) 12 mg Invalid Interpretation Code [facility] Comment on above: Performed By: #### 1 [id number] ####[address] [place] [address] Consent for Procedure/Surger yon 05-05-2023 Consent for Procedure/Surgery [id number]#1.00TIFF [facility] RAD - MISCon 05-05-2023 RAD - MISC [id number]#1.00TIFF [facility] Ambulatory Visit Summaryon 0 05-04-2023 Ambulatory [...] Contact prescribing physician if questions or concerns [facility] Prescription (#####) aspirin (aspirin 81 mg oral [...] Ivelisse Hassan MD Where: [facility] Patient Educationon 05-04-19 24 Patient Education Nephrology [...] ? 8 oz (237 mL) of milk, xrmpmof-iknufxccbbza-tntma milk, and calcium-fortifiedfruit juice. Calcium-fortified means that [...] Spinach (cooked), rhubarb, beets, sweet potatoes, and Lao chard. ? Peanuts. ? Potato chips, prydeinig fries, and baked potatoes with skin on. ? Nuts and nut products. ? Chocolate. ? If you regularly take a diuretic medicine, make sure to eat at least 1 or 2 servings of fruits or vegetables that are high in potassium each day. These include: ? Avocado. ? Banana. ? [place], prune, carrot, or tomato juice. ? Baked [...] fish oil, or vitamin B6. ? Take ehea-guc-oggcsfa and prescription medicines only as told by your health care provider. These include supplements. What foods sh (more content not included)... [facility] [id number]#1.00TIFF Normal [facility] Urology Office/Clinic Noteon 05-04-2023 Urology [...] TURP by [facility] 2019, prostate small on 05/11/22 CT [...] All questions/concern (more content not included)... Normal [facility] Comment on above: Result Comment: Elec tronically Signed By: Ivelisse Hassan MD\.br\Date and Time Signed: 05/04/23 12:02 EST\.br\Electronically Co-Signed By: Eleonora Belcher.br\Date and Time Co-Signed: 05/04/23 11:47 EST Operative Reporton Operative Report [id number]#1.00TIFF Normal [facility] Physician Orderon 04-29-2023 Physician Order [id number]#1.00TIFF Normal [facility] RAD - MISCon 04-28-2023 RAD - MISC [id number]#1.00TIFF Normal [facility] Consultation Noteon 04-23-19 Consultation Note [id number]#1.00TIFF [facility] Formson 04-23-2023 Forms [id number]#1.00TIFF [facility] Consent for Procedure/Surger yon 04-21-2023 Consent for Procedure/Surgery [id number]#1.00TIFF [facility] Lab Reportson 04-21-2023 Lab Reports [id number]#1.00TIFF [facility] Lab Reports [id number]#1.00TIFF [facility] Activated partial thrombopla stin time (aPTT) in platelet poor plasma by coagulation aon 04-20-2023 aPTT Coag (PPP) [Time] 32.6 s 22.3-36.2 [facility] Basophils Auto (Bld) [#/Vol] on 04-20-2023 Basophils (Bld) [#/Vol] 0.1 10 3/uL 0.0-0.1 [facility] Basophils/100 WBC Auto (Bld) on 04-20-2023 Basophils/100 WBC (Bld) 0.5 % 0.2-2.0 [facility] Eosinophils/100 WBC Auto (Bl d)on 04-20-2023 Eosinophils/100 WBC (Bld) 1.2 % 0.9-7.0 [facility] Erythrocyte distribution wid th Auto (RBC) [Ratio]on 04-20-2023 Erythrocyte distribution width (RBC) [Ratio] 12.4 % 11.0-15.0 [facility] Estimated glomerular filtrat ion rate (GFR) non- Americanon 04-20-2023 GFR/1.73 sq M.predicted among non-blacks MDRD (S/P/Bld) [Vol rate/Area] mL/min/{1.73_m2} >=60 [facility] Formson 04-20-2023 Forms [id number]#1.00TIFF Normal [facility] Hematocrit Auto (Bld) [Volum e fraction]on 04-20-2023 Hematocrit (Bld) [Volume fraction] 36.7 % 42.0-54.0 [facility] Hemoglobin [Mass/volume] in Bloodon 04-20-2023 Hemoglobin (Bld) [Mass/Vol] 11.5 g/dL 14.0-18.0 [facility] INR in Platelet poor plasma by Coagulation assayon 04-20-2023 INR Coag (PPP) [Relative time] 1.01 {INR} [facility] Comment on above: DESIRED INR:2.0-3.0 CONDITIONS NOT LISTED BELOW2.5-3.5 FOR PROSTHETIC HEART VALVE REPLACEMENT2.5-3.5 RECURRENT THROMBOSIS Laboratory - Chemistry and C hemistry - challengeon 04-20-2023 Calcium [Mass/Vol] 9.0 mg/dL 8.5-10.1 [facility] Chloride [Moles/Vol] 104 mmol/L 98-107 [facility] CO2 [Moles/Vol] 28.9 mmol/L 21.0-32.0 [facility] Creatinine [Mass/Vol] 0.89 mg/dL 0.70-1.30 [facility] GFR/1.73 sq M.predicted MDRD (S/P/Bld) [Vol rate/Area] mL/min/{1.73_m2} >=60 [facility] Glucose [Mass/Vol] 133 mg/dL 74-106 [facility] Potassium [Moles/Vol] 4.6 mmol/L 3.5-5.1 [facility] Sodium [Moles/Vol] 140 mmol/L 136-145 [facility] Urea nitrogen [Mass/Vol] 15.0 mg/dL 7.0-18.0 [facility] Urea nitrogen/Creatinine [Mass ratio] 16.9 mg/mg [facility] Laboratory - Hematology and Cell countson 04-20-2023 Immature granulocytes/100 WBC (Bld) 0.3 % 0.0-0.5 [facility] Leukocytes [#/volume] correc shyann for nucleated erythrocytes in Blood by Automated counon 04-20-2023 WBC corrected for nucl RBC Auto (Bld) [#/Vol] 9.9 10 3/uL 4.0-11.0 [facility] Lymphocytes Auto (Bld) [#/Vo l]on 04-20-2023 Lymphocytes (Bld) [#/Vol] 1.1 10 3/uL 1.2-3.8 [facility] Lymphocytes/100 WBC Auto (Bl d)on 04-20-2023 Lymphocytes/100 WBC (Bld) 11.3 % 20.5-60.0 [facility] MCH Auto (RBC) [Entitic mass ]on 04-20-2023 MCH (RBC) [Entitic mass] 29.6 pg 25.9-34.0 [facility] MCHC Auto (RBC) [Mass/Vol]on 04-20-2023 MCHC (RBC) [Mass/Vol] 31.3 g/dL 29.9-35.2 [facility] MCV Auto (RBC) [Entitic vol] on 04-20-2023 MCV (RBC) [Entitic vol] 94.6 fL 80.0-94.0 [facility] Monocytes Auto (Bld) [#/Vol] on 04-20-2023 Monocytes (Bld) [#/Vol] 0.8 10 3/uL 0.3-0.8 [facility] Monocytes/100 WBC Auto (Bld) on 04-20-2023 Monocytes/100 WBC (Bld) 8.5 % 1.7-12.0 [facility] Neutrophils Auto (Bld) [#/Vo l]on 04-20-2023 Neutrophils (Bld) [#/Vol] 7.8 10 3/uL 1.4-6.5 [facility] Neutrophils/100 WBC Auto (Bl d)on 04-20-2023 Neutrophils/100 WBC (Bld) 78.2 % 43.0-75.0 [facility] No Panel Informationon 04-20 Eosinophils # (Auto) 0.1 10 3/uL 0.0-0.7 [facility] Immature Granulocyte # (Auto) 0.03 10 3/uL 0.00-0.03 [facility] Platelet mean volume Auto (B ld) [Entitic vol]on 04-20-2023 Platelet mean volume (Bld) [Entitic vol] 9.4 fL 9.5-13.5 [facility] Platelets Auto (Bld) [#/Vol] on 04-20-2023 Platelets (Bld) [#/Vol] 188 10 3/uL 150-450 [facility] Prothrombin time (PT)on 04-08 PT Coag (PPP) [Time] 10.7 s 9.0-11.6 [facility] RBC Auto (Bld) [#/Vol]on RBC (Bld) [#/Vol] 3.88 10 6/uL 4.70-6.10 [facility] Serum or plasma anion gap de terminationon 04-20-2023 Anion gap [Moles/Vol] 11.7 mmol/L [facility] RAD - MISCon 04-08-2023 RAD - MIS [id number]#1.00TIFF Normal [facility] Operative Reporton Operative Report [id number]#1.00TIFF Normal [facility] RAD - MISCon 03-25-2023 RAD - MISC [id number]#1.00TIFF Normal [facility] Consent for Procedure/Surger yon 03-22-2023 Consent for Procedure/Surgery [id number]#1.00TIFF Normal [facility] Lab Reportson 03-19-2023 Lab Reports [id number]#1.00TIFF Normal [facility] RAD - MISCon 03-19-2023 RAD - MISC [id number]#1.00TIFF Normal [facility] Reminderson 03-03-2023 Reminders - From: Faviola Clemens To: EU - Recalls Mo; Sent: 01/13/2023 10:01:25 EST Show up: 02/12/2023 10:01:00 EST Subject: LINDSEY and KUB Due Date/Time: 02/12/2023 10:01:00 EST Pt to have LINDSEY and KUB done in March at [facility]. Orders placed. Possible ESWL pending size of stones. No follow up at this time. Pt to be called with results. Called pt and reminded him to complete LINDSEY/KUB @ [facility] in the next month. Orders were faxed today. From: Sarika Horta (EU - Recallnils Hassan) To: ADALGISA ANTOINE PA-C; Sent: 02/22/2023 09:37:39 EST Show up: 02/22/2023 09:31:00 EST Subject: RE: LINDSEY and KUB 02/19/23 KUB: 02/19/23 LINDSEY: Per last OV, possible ESWL. Next steps? From: ADALGISA ANTOINE PA-C To: Mo LEIJA, Ivelisse Schreiber; Sent: 02/22/2023 16:06:07 EST ! Show up: 02/22/2023 16:05:00 EST From: Belkis Johnson MA ([facility] Recallnils Hassan) To: Ivelisse Hassan MD; Sent: 02/25/2023 13:44:44 [...] KML Patient is scheduled for 03/24/22 @ [facility] Comment on above: Result Comment: Miss ing Attachment - attachment exceeds size limitation (02/19/2023) RAD - Ultrasound Report Can be viewed in source system Missing Attachment - attachment exceeds size limitation (02/19/2023) RAD - MISC Can be viewed in source system RAD - MISCon 02-22-2023 RAD - MISC [id number]#1.00TIFF [facility] RAD - Ultrasound Reporton RAD - Ultrasound Report [id number]#1.00TIFF [facility] Screenson 01-14-2023 Screens [id number]#1.00TIFF [facility] Screens [id number]#1.00TIFF Normal [facility] Patient Educationon 01-14-20 Patient Education Urology Benign [...] Follow these instructions at home: ? Take yvse-wlz-ixchbma and prescription medicines only as told by [...] the medicine (more content not included)... Normal Amol [facility] Urology Office/Clinic Noteon 01-13-2023 Urology Office/Clinic Note [...] with voice recognition artificial intelligence software, specifically [employer], [employer] and or [employer]. Substitutions may have occurred due to the [...] (more content not included)... Normal [facility] Comment on above: Result Comment: Elec tronically Signed By: Ivelisse Hassan MD\.br\Date and Time Signed: 01/13/23 16:25 EST\.br\Electronically Co-Signed By: Faviola Clemens\.br\Date and Time Co-Signed: 01/13/23 09:59 EST [place] 10-08-2022 Screens [id number]#1.00CD:127 [facility] Screens [id number]#1.00CD:127 [facility] Ambulatory Visit Summaryon 0 10-07-2022 Ambulatory Visit Summary CHICO BAKER :1940 Visit Date:10/07/2022 Ambulatory Visit Instructions Your Diagnosis BPH with obstruction/lower urinary tract symptoms History of kidney stones Asymptomatic microscopic hematuria 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 Take thpd-mxr-oshizmj and prescription medicines only as told by [...] (more content not included)... Normal [facility] Urology Office/Clinic Noteon 10-07-2022 Urology [...] TURP by [facility] 2019, prostate small on 05/11/22 CT [...] (more content not included)... Normal [facility] Comment on above: Result Comment: Elec tronically Signed By: Ivelisse Hassan MD\.br\Date and Time Signed: 10/07/22 10:28 EDT\.br\Electronically Co-Signed By: Eleonora Belcher.br\Date and Time Co-Signed: 10/07/22 09:25 EDT Consent for Procedure/Surger yon 07-29-2022 Consent for Procedure/Surgery [id number]#1.00CD:127 Kaushik [facility] Patient Educationon 07-29-19 Patient Education Urology Erectile [...] these instructions at home: Medicines ? Take tuyc-zbw-opogcff and prescription medicines only as told by [...] (more content not included)... Normal [facility] Urology Office/Clinic Noteon 07-28-2022 Urology [...] (more content not included)... Normal [facility] Comment on above: Result Comment: Elec tronically Signed By: Mo LEIJA, Ivelisse Schreiber\.br\Date and Time Signed: 07/28/22 10:49 EDT\.br\Electronically Co-Signed By: Clarissa Joaquin MA\.br\Date and Time Co-Signed: 07/28/22 10:28 EDT Blood activated clotting sue e by coagulation assayOrdered By: Raul Quan on 07-08-2022 ACT Coag (Bld) 335 s 90-139 [facility] Comment on above: Reference Range: 90- 139 (Non-heparinized) Laboratory - CoagulationOrde red By: Raul Quan on 07-08-2022 PT Coag (PPP) [Time] 11.7 s 9.0-12.9 [facility] Platelet poor plasma interna tional normalized ratio (INR) by coagulation assay (relatOrdered By: Raul Quan on 07-08-2022 INR Coag (PPP) [Relative time] 1.0 {INR} [facility] Comment on above: INR Therapeutic Rang [...] [Catalytic activity/Vol] 9 U/L 7-52 [facility] Albumin [Mass/volume] in Ser um or Plasma by Bromocresol green (BCG) dye binding methoOrdered By: Raul Quan on 07-01-2022 Albumin BCG dye [Mass/Vol] 3.7 g/dL 3.5-5.7 [facility] Alkaline phosphatase [Enzyma tic activity/volume] in Serum or PlasmaOrdered By: Raul Quan on 07-01-2022 ALP [Catalytic activity/Vol] 96 U/L 34-104 [facility] Aspartate aminotransferase [ Enzymatic activity/volume] in Serum or PlasmaOrdered By: Raul Quan on 07-01-2022 AST [Catalytic activity/Vol] 14 U/L 13-39 [facility] Basophils Auto (Bld) [#/Vol] Ordered By: Raul Quan on 07-01-2022 Basophils (Bld) [#/Vol] 0.1 10*3/uL 0.0-0.2 [facility] Basophils/100 WBC Auto (Bld) Ordered By: Raul Quan on 07-01-2022 Basophils/100 WBC (Bld) 0.7 % . [facility] Bilirubin.total [Mass/volume ] in Serum or PlasmaOrdered By: Raul Quan on 07-01-2022 Bilirubin [Mass/Vol] 0.5 mg/dL 0.3-1.0 [facility] Calcium [Mass/volume] in Ser um or PlasmaOrdered By: Raul Quan on 07-01-2022 Calcium [Mass/Vol] 8.5 mg/dL 8.6-10.3 [facility] Carbon dioxide, total [Moles /volume] in Serum or PlasmaOrdered By: Raul Quan on 07-01-2022 CO2 [Moles/Vol] 24.6 mmol/L 21.0-31.0 [facility] Chloride [Moles/volume] in S aisha or PlasmaOrdered By: Raul Quan on 07-01-2022 Chloride [Moles/Vol] 100 mmol/L 98-107 [facility] Creatinine [Mass/volume] in Serum or PlasmaOrdered By: Raul Quan on 07-01-2022 Creatinine [Mass/Vol] 0.87 mg/dL 0.70-1.30 [facility] Eosinophils Auto (Bld) [#/Vo l]Ordered By: Raul Quan on 07-01-2022 Eosinophils (Bld) [#/Vol] 0.1 10*3/uL 0.0-0.45 [facility] Eosinophils/100 WBC Auto (Bl d)Ordered By: Raul Quan on 07-01-2022 Eosinophils/100 WBC (Bld) 1.5 % . [facility] Erythrocyte distribution wid th Auto (RBC) [Ratio]Ordered By: Raul Quan on 07-01-2022 Erythrocyte distribution width (RBC) [Ratio] 13.0 % 12.0-14.8 [facility] Globulin Calc (S) [Mass/Vol] Ordered By: Raul Quan on 07-01-2022 Globulin (S) [Mass/Vol] 3.4 g/dL [facility] Glucose [Mass/volume] in Ser um or PlasmaOrdered By: Raul Quan on 07-01-2022 Glucose [Mass/Vol] 163 mg/dL 70-100 [facility] Comment on above: ADA recommended refe rence rangeRandom Glucose Reference Range is dependent on time and content of last meal. Glucose of more than 200 mg/dL in a nonstressed, ambulatory subject supports the diagnosis of Diabetes Mellitus. Hematocrit Auto (Bld) [Volum e fraction]Ordered By: Raul Quan on 07-01-2022 Hematocrit (Bld) [Volume fraction] 36.4 % 38.8-50.0 [facility] Hemoglobin [Mass/volume] in BloodOrdered By: aRul Quan on 07-01-2022 Hemoglobin (Bld) [Mass/Vol] 12.1 g/dL 13.0-17.0 [facility] Leukocytes [#/volume] correc shyann for nucleated erythrocytes in Blood by Automated counOrdered By: Raul Quan on 07-01-2022 WBC corrected for nucl RBC Auto (Bld) [#/Vol] 8.5 10*3/uL 4.1-10.5 [facility] Lymphocytes Auto (Bld) [#/Vo l]Ordered By: Raul Quan on 07-01-2022 Lymphocytes (Bld) [#/Vol] 1.6 10*3/uL 1.00-4.8 [facility] Lymphocytes/100 WBC Auto (Bl d)Ordered By: Raul Quan on 07-01-2022 Lymphocytes/100 WBC (Bld) 19.3 % . [facility] MCH Auto (RBC) [Entitic mass ]Ordered By: Raul Quan on 07-01-2022 MCH (RBC) [Entitic mass] 30.2 pg 27.5-35.2 [facility] MCHC Auto (RBC) [Mass/Vol]Or dered By: Raul Quan on 07-01-2022 MCHC (RBC) [Mass/Vol] 33.3 g/dL 32.5-35.6 [facility] MCV Auto (RBC) [Entitic vol] Ordered By: Raul Quan on 07-01-2022 MCV (RBC) [Entitic vol] 90.7 fL 83.5-101 [facility] Monocytes Auto (Bld) [#/Vol] Ordered By: Raul Quan on 07-01-2022 Monocytes (Bld) [#/Vol] 0.9 10*3/uL 0.0-0.8 [facility] Monocytes/100 WBC Auto (Bld) Ordered By: Raul Quan on 07-01-2022 Monocytes/100 WBC (Bld) 11.1 % . [facility] Neutrophils Auto (Bld) [#/Vo l]Ordered By: Raul Quan on 07-01-2022 Neutrophils (Bld) [#/Vol] 5.7 10*3/uL 1.8-7.7 [facility] Neutrophils/100 WBC Auto (Bl d)Ordered By: Raul Quan on 07-01-2022 Neutrophils/100 WBC (Bld) 67.4 % . [facility] No Panel InformationOrdered By: Raul Quan on 07-01-2022 Estimated GFR (CKD-EPI) > 60.0 mL/Min [facility] Creatinine Clearance (Chem N/A [facility] Nucleated erythrocytes [Pres ence] in Blood by Automated countOrdered By: Raul Quan on 07-01-2022 Nucleated RBC Auto Ql (Bld) 0.0 /100{WBC} 0-0.5 [facility] Platelet mean volume Auto (B ld) [Entitic vol]Ordered By: Raul Quan on 07-01-2022 Platelet mean volume (Bld) [Entitic vol] 7.6 fL 6.6-10.1 [facility] Platelets Auto (Bld) [#/Vol] Ordered By: Raul Quan on 07-01-2022 Platelets (Bld) [#/Vol] 198 10*3/uL 150-450 [facility] Potassium [Moles/volume] in Serum or PlasmaOrdered By: Raul Quan on 07-01-2022 Potassium [Moles/Vol] 4.4 mmol/L 3.5-5.1 [facility] Protein [Mass/volume] in Ser um or PlasmaOrdered By: Raul Quan on 07-01-2022 Protein [Mass/Vol] 7.1 g/dL 6.4-8.9 [facility] RBC Auto (Bld) [#/Vol]Ordere d By: Raul Quan on 07-01-2022 RBC (Bld) [#/Vol] 4.01 10*6/uL 3.90-5.60 [facility] Serum or plasma albumin/glob ulin mass ratioOrdered By: Raul Quan on 07-01-2022 Albumin/Globulin [Mass ratio] 1.1 {ratio} [facility] Serum or plasma anion gap de terminationOrdered By: Raul Quan on 07-01-2022 Anion gap [Moles/Vol] 13.8 mmol/L 6.0-15.0 [facility] Sodium [Moles/volume] in Ser um or PlasmaOrdered By: Raul Quan on 07-01-2022 Sodium [Moles/Vol] 134 mmol/L 136-145 [facility] Urea nitrogen [Mass/volume] in Serum or PlasmaOrdered By: Raul Quan on 07-01-2022 Urea nitrogen [Mass/Vol] 17 mg/dL 7-25 [facility] WBC Auto (Bld) [#/Vol]Ordere d By: Raul Quan on 07-01-2022 WBC (Bld) [#/Vol] 8.5 10*3/uL 4.1-10.5 [facility] Patient Educationon 06-25-19 Patient Education Urology [...] these instructions at home: Medicines ? Take xcmy-vbm-plctvpa and prescription medicines only as told by [...] the blood stops without treatment. ? Take emge-ite-vxaazgv and prescription medicines only as told by your health care provider. ? Drink enough fluid to keep your urine pale yellow. This information is not intended to replace advice given to you by your health care provider. Make sure you discuss any questions you have with your health care provider. Document Revised: 10/23/2020 Document Reviewed: 10/23/2020 [employer] Patient Education ? 2022 [employer]. [facility] Screenson 06-24-2022 Screens [id number]:127 Normal [facility] Screens [id number]:127 Normal [facility] Urology Office/Clinic Noteon 06-24-2022 Urology [...] Urnls Dip Stick Auto w/o Microscopy POC 43340 Urology Procedure Order 4. Penile rash (R21: Rash and other nonspecific skin eruption) Pt states rash has completely cleared up after stopping Bactrim. Denies irritation. Head of penis is not red, but is discolored. Not bothersome. D/c use of cream. Resolved Ordered: Urology Procedure Order 5. ED (erectile dysfunction) (N52.9: Male erectile dysfunction, unspecified) (more content not included)... Normal [facility] Comment on above: Result Comment: Elec tronically Signed By: Mo LEIJA, Ivelisse Schreiber\.br\Date and Time Signed: 06/24/22 10:24 EDT RAD - CT Reporton 05-14-2022 RAD - CT Report [id number]:127 Normal [facility] Creatinine (Bld) [Mass/Vol]O rdered By: Raul Quan on 05-11-2022 Creatinine [Mass/Vol] 0.9 mg/dL 0.6-1.3 [facility] Comment on above: ER/ESD physician is notified/shown all ISTAT results.Critical values may be confirmed by laboratory testing ifdeemed necessary by ER attending doctor. No Panel InformationOrdered By: Raul Quan on 05-11-2022 POC Estimated GFR > 60 [facility] Comment on above: GFR estimated refere nce range: According to KDOQI guidelines, <60 ml/min/1.73m2 is sufficient to diagnose a patient with chronic kidney disease. POC Estimated GFR Non- Amer > 60 [facility] URINALYSISOrdered By: Kirstie sanchez on 04-15-2022 Bacteria LM Ql (Urine sed) Trace /HPF Normal Trace/HPF [facility] UA Auto SS Bilirubin Ql (U) Negative (2/8/23 12:14 PM) Normal Negative [facility] UA Auto [...] Interpretation Code Negative [facility] UA Auto SS [place].plasma/[place] .RBC (Bld) [Mass ratio] 21-30 /HPF Invalid [...] [facility] UA Auto SS Urobilinogen Qn (U) [id number] {Nikki'U}/dL Normal 0.0 - 1.0 EU/dL [facility] [...] Interpretation Code Negative [facility] UA Auto SS [place].plasma/[place] .RBC (Bld) [Mass ratio] 4-20 /HPF Normal [...] [facility] UA Auto SS Urobilinogen Qn (U) 0.3171265 {Nikki'U}/dL Normal 0.0 - 1.0 EU/dL [facility] UA Auto SS WBC Auto Ql (U) 1+ *ABN* (02/11/22 10:38 AM) Invalid Interpretation Code Negative [facility] UA Auto SS WBC LM.HPF (Urine sed) [#/Area] 0-5 /HPF Normal 0-5/HPF [facility] UA Auto SS Basophils Auto (Bld) [#/Vol] Ordered By: Raul Quan on 02-05-2022 Basophils (Bld) [#/Vol] 0.1 10*3/uL 0.0-0.2 [facility] Basophils/100 WBC Auto (Bld) Ordered By: Raul Quan on 02-05-2022 Basophils/100 WBC (Bld) 0.6 % . [facility] Creatinine and Glomerular fi ltration rate.predicted panel (S/P/Bld)Ordered By: Raul Quan on 02-05-2022 Creatinine [Mass/Vol] 0.94 mg/dL 0.64-1.27 [facility] Eosinophils Auto (Bld) [#/Vo l]Ordered By: Raul Quan on 02-05-2022 Eosinophils (Bld) [#/Vol] 0.1 10*3/uL 0.0-0.45 [facility] Eosinophils/100 WBC Auto (Bl d)Ordered By: Raul Quan on 02-05-2022 Eosinophils/100 WBC (Bld) 0.7 % . [facility] Erythrocyte distribution wid th Auto (RBC) [Ratio]Ordered By: Raul Quan on 02-05-2022 Erythrocyte distribution width (RBC) [Ratio] 13.8 % 12.0-14.8 [facility] Estimated glomerular filtrat ion rate (GFR) non- AmericanOrdered By: Raul Quan on 02-05-2022 GFR/1.73 sq M.predicted among non-blacks MDRD (S/P/Bld) [Vol rate/Area] > 60 mL/Min [facility] Hematocrit Auto (Bld) [Volum e fraction]Ordered By: Raul Quan on 02-05-2022 Hematocrit (Bld) [Volume fraction] 34.6 % 38.8-50.0 [facility] Hemoglobin [Mass/volume] in BloodOrdered By: Raul Quan on 02-05-2022 Hemoglobin (Bld) [Mass/Vol] 11.4 g/dL 13.0-17.0 [facility] Leukocytes [#/volume] correc shyann for nucleated erythrocytes in Blood by Automated counOrdered By: Raul Quan on 02-05-2022 WBC corrected for nucl RBC Auto (Bld) [#/Vol] 10.3 10*3/uL 4.1-10.5 [facility] Lymphocytes Auto (Bld) [#/Vo l]Ordered By: Raul Quan on 02-05-2022 Lymphocytes (Bld) [#/Vol] 1.5 10*3/uL 1.00-4.8 [facility] Lymphocytes/100 WBC Auto (Bl d)Ordered By: Raul Quan on 02-05-2022 Lymphocytes/100 WBC (Bld) 14.4 % . [facility] MCH Auto (RBC) [Entitic mass ]Ordered By: Raul Quan on 02-05-2022 MCH (RBC) [Entitic mass] 30.1 pg 27.5-35.2 [facility] MCHC Auto (RBC) [Mass/Vol]Or dered By: Raul Quan on 02-05-2022 MCHC (RBC) [Mass/Vol] 32.9 g/dL 32.5-35.6 [facility] MCV Auto (RBC) [Entitic vol] Ordered By: Raul Quan on 02-05-2022 MCV (RBC) [Entitic vol] 91.6 fL 83.5-101 [facility] Monocytes Auto (Bld) [#/Vol] Ordered By: Raul Quan on 02-05-2022 Monocytes (Bld) [#/Vol] 1.5 10*3/uL 0.0-0.8 [facility] Monocytes/100 WBC Auto (Bld) Ordered By: Raul Quan on 02-05-2022 Monocytes/100 WBC (Bld) 14.8 % . [facility] Neutrophils Auto (Bld) [#/Vo l]Ordered By: Raul Quan on 02-05-2022 Neutrophils (Bld) [#/Vol] 7.1 10*3/uL 1.8-7.7 [facility] Neutrophils/100 WBC Auto (Bl d)Ordered By: Raul Quan on 02-05-2022 Neutrophils/100 WBC (Bld) 69.5 % . [facility] No Panel InformationOrdered By: Raul Quan on 02-05-2022 Estimated GFR () > 60 mL/Min [facility] Comment on above: GFR estimated refere nce range: According to KDOQI guidelines, <60 ml/min/1.73m2 is sufficient to diagnose a patient with chronic kidney disease. Pharmacy Creatinine Clearance (Chem 57.50 [facility] Nucleated erythrocytes [Pres ence] in Blood by Automated countOrdered By: Raul Quan on 02-05-2022 Nucleated RBC Auto Ql (Bld) 0.1 /100{WBC} 0-0.5 [facility] Platelet mean volume Auto (B ld) [Entitic vol]Ordered By: Raul Quan on 02-05-2022 Platelet mean volume (Bld) [Entitic vol] 7.9 fL 6.6-10.1 [facility] Platelets Auto (Bld) [#/Vol] Ordered By: Raul Quan on 02-05-2022 Platelets (Bld) [#/Vol] 142 10*3/uL 150-450 [facility] Comment on above: Delta: 198 on RBC Auto (Bld) [#/Vol]Ordere d By: Raul Quan on 02-05-2022 RBC (Bld) [#/Vol] 3.77 10*6/uL 3.90-5.60 [facility] Serum or plasma anion gap de terminationOrdered By: Raul Quan on 02-05-2022 Anion gap [Moles/Vol] 10.4 mmol/L 6.0-15.0 [facility] Serum or plasma calcium richy urement (mass/volume)Ordered By: Raul Quan on 02-05-2022 Calcium [Mass/Vol] 8.4 mg/dL 8.2-10.2 [facility] Serum or plasma chloride young surement (moles/volume)Ordered By: Raul Quan on 02-05-2022 Chloride [Moles/Vol] 101 mmol/L 95-114 [facility] Serum or plasma glucose richy urement (mass/volume)Ordered By: Raul Quan on 02-05-2022 Glucose [Mass/Vol] 109 mg/dL 70-100 [facility] Comment on above: ADA recommended refe rence rangeRandom Glucose Reference Range is dependent on time and content of last meal. Glucose of more than 200 mg/dL in a nonstressed, ambulatory subject supports the diagnosis of Diabetes Mellitus. Serum or plasma potassium me asurement (moles/volume)Ordered By: Raul Quan on 02-05-2022 Potassium [Moles/Vol] 4.6 mmol/L 3.5-5.1 [facility] Serum or plasma sodium measu rement (moles/volume)Ordered By: Raul Quan on 02-05-2022 Sodium [Moles/Vol] 135 mmol/L 136-146 [facility] Serum or plasma total carbon dioxide measurement (moles/volume)Ordered By: Raul Quan on 02-05-2022 CO2 [Moles/Vol] 28.2 mmol/L 22.0-30.0 [facility] Serum or plasma urea nitroge n measurement (mass/volume)Ordered By: Raul Quan on 02-05-2022 Urea nitrogen [Mass/Vol] 11 mg/dL 11-28 [facility] WBC Auto (Bld) [#/Vol]Ordere d By: Raul Quan on 02-05-2022 WBC (Bld) [#/Vol] 10.3 10*3/uL 4.1-10.5 [facility] Covid-19 PCR (CVDTBH)on 01-07 SARS-CoV-2 (COVID-19) RNA JESSIE+probe Ql (Unsp spec) Not detected Normal NOT DETECTED [facility] Comment on above: Result Comment: This test is not yet approved or cleared by the [place] FDA. When there are no FDA-approved or cleared tests available, and other criteria are met, FDA can make tests available under an emergency access mechanism called an Emergency Use Authorization (EUA). The EUA for this test is supported by the Facilities Operations Technician of Health and Human Service's (HHS's) [...] SARS-CoV-2. Performed By: #### C VDTB #### [facility] [address] [place] [address] Dr. Jodi Roman CBC AUTO DIFFon 12-08-2021 BASO # 0.1 103/ul Normal 0.0-0.1 [facility] Comment on above: Performed By: #### D ATA1C #### [facility] [address] [place] [address] Dr. Jodi Roman Basophils/100 WBC (Bld) 0.5 % Normal 0.2-2.0 [facility] Comment on above: Performed By: #### D ATA1C #### [facility] [address] [place] [address] Dr. Jodi Roman EO # 0.1 103/ul Normal 0.0-0.7 [facility] Comment on above: Performed By: #### D ATA1C #### [facility] [address] [place] [address] Dr. Jodi Roman Eosinophils/100 WBC (Bld) 1.4 % Normal 0.9-7.0 [facility] Comment on above: Performed By: #### D ATA1C #### [facility] [address] [place] [address] Dr. Jodi Roman Erythrocyte distribution width (RBC) [Ratio] 13.0 % Normal 11.0-15.0 [facility] Comment on above: Performed By: #### D ATA1C #### [facility] [address] [place] [address] Dr. Jodi Roman Hematocrit (Bld) [Volume fraction] 36.1 % Critically low 42.0-54.0 [facility] Comment on above: Performed By: #### D ATA1C #### [facility] [address] [place] [address] Dr. Jodi Roman Hemoglobin (Bld) [Mass/Vol] 11.2 g/dL Critically low 14.0-18.0 [facility] Comment on above: Performed By: #### D ATA1C #### [facility] [address] [place] [address] Dr. Jodi Roman IG # 0.04 10e3/ul Critically high 0.00-0.03 [facility] Comment on above: Performed By: #### D ATA1C #### [facility] [address] [place] [address] Dr. Jodi Roman IG % 0.4 % Normal 0.0-0.5 [facility] Comment on above: Performed By: #### D ATA1C #### [facility] [address] [place] [address] Dr. Jodi Roman LYMPH # 1.8 103/ul Normal 1.2-3.8 [facility] Comment on above: Performed By: #### D ATA1C #### [facility] [address] [place] [address] Dr. Jodi Roman Lymphocytes/100 WBC (Bld) 17.2 % Critically low 20.5-60.0 [facility] Comment on above: Performed By: #### D ATA1C #### [facility] [address] [place] [address] Dr. Jodi Roman MANUAL DIFF REQ NO Normal [facility] Comment on above: Performed By: #### D ATA1C #### [facility] [address] [place] [address] Dr. Jodi Roman MCH (RBC) [Entitic mass] 30.4 pg Normal 25.9-34.0 [facility] Comment on above: Performed By: #### D ATA1C #### [facility] [address] [place] [address] Dr. Jodi Roman MCHC (RBC) [Mass/Vol] 31.0 g/dL Normal 29.9-35.2 [facility] Comment on above: Performed By: #### D ATA1C #### [facility] [address] [place] [address] Dr. Jodi Roman MCV (RBC) [Entitic vol] 98.1 fL Critically high 80.0-94.0 [facility] Comment on above: Performed By: #### D ATA1C #### [facility] [address] [place] [address] Dr. Jodi Roman MONO # 1.0 103/ul Critically high 0.3-0.8 [facility] Comment on above: Performed By: #### D ATA1C #### [facility] [address] [place] [address] Dr. Jodi Roman Monocytes/100 WBC (Bld) 9.8 % Normal 1.7-12.0 [facility] Comment on above: Performed By: #### D ATA1C #### [facility] [address] [place] [address] Dr. Jodi Roman NEUT # 7.3 103/ul Critically high 1.4-6.5 [facility] Comment on above: Performed By: #### D ATA1C #### [facility] [address] [place] [address] Dr. Jodi Roman Neutrophils/100 WBC (Bld) 70.7 % Normal 43.0-75.0 [facility] Comment on above: Performed By: #### D ATA1C #### [facility] [address] [place] [address] Dr. Jodi Roman Platelet mean volume (Bld) [Entitic vol] 9.1 fL Critically low 9.5-13.5 [facility] Comment on above: Performed By: #### D ATA1C #### [facility] [address] [place] [address] Dr. Jodi Roman PLT 214 103/ul Normal 150-450 [facility] Comment on above: Performed By: #### D ATA1C #### [facility] [address] [place] [address] Dr. Jodi Roman RBC 3.68 106/ul Critically low 4.70-6.10 [facility] Comment on above: Performed By: #### D ATA1C #### [facility] [address] [place] [address] Dr. Jodi Roman WBC 10.3 103/ul Normal 4.0-11.0 [facility] Comment on above: Performed By: #### D ATA1C #### [facility] [address] [place] [address] Dr. Jodi Roman PROF CHEM 8 (BAS METB)on Anion gap [Moles/Vol] 9.7 mmol/L Normal [facility] Comment on above: Performed By: #### C BC #### [facility] [address] [place] [address] Dr. Jodi Roman Calcium [Mass/Vol] 8.9 mg/dL Normal 8.5-10.1 [facility] Comment on above: Performed By: #### C BC #### [facility] [address] [place] [address] Dr. Jodi Roman Chloride [Moles/Vol] 102 mmol/L Normal 98-107 [facility] Comment on above: Performed By: #### C BC #### [facility] [address] [place] [address] Dr. Jodi Roman CO2 [Moles/Vol] 31.0 mmol/L Normal 21.0-32.0 [facility] Comment on above: Performed By: #### C BC #### [facility] [address] [place] [address] Dr. Jodi Roman Creatinine [Mass/Vol] 0.85 mg/dL Normal 0.70-1.30 [facility] Comment on above: Performed By: #### C BC #### [facility] [address] [place] [address] Dr. Jodi Roman EGFR-AF GERMAN >60 Normal >=60 [facility] Comment on above: Performed By: #### C BC #### [facility] [address] [address] [address] Jodi Roman EGFR-NON AF GERMAN >60 Normal >=60 [facility] Comment on above: Performed By: #### C BC #### [facility] [address] [address] [address] Jodi Roman Glucose [Mass/Vol] 106 mg/dL Normal 74-106 [facility] Comment on above: Performed By: #### C BC #### [facility] [address] [address] [address] Jodi Roman Potassium [Moles/Vol] 4.7 mmol/L Normal 3.5-5.1 [facility] Comment on above: Performed By: #### C BC #### [facility] [address] [place] [address] Dr. Jodi Roman Sodium [Moles/Vol] 138 mmol/L Normal 136-145 [facility] Comment on above: Performed By: #### C BC #### [facility] [address] [address] [address] Jodi Roman Urea nitrogen [Mass/Vol] 14.0 mg/dL Normal 7.0-18.0 [facility] Comment on above: Performed By: #### C BC #### [facility] [address] [place] [address] Dr. Jodi Roman Urea nitrogen/Creatinine [Mass ratio] 16.5 mg/mg Normal [facility] Comment on above: Performed By: #### C BC #### [facility] [address] [address] [address] Jodi Roman XR CHEST 2 Von 12-08-2021 XR CHEST [...] ROCIO RICARDO Date: 2021-12-08 16:20 Normal [facility] Covid-19 PCR (CVDTB)on 11-07 SARS-CoV-2 (COVID-19) RNA JESSIE+probe Ql (Unsp spec) Not detected Normal NOT DETECTED [facility] Comment on above: Result Comment: This test is not yet approved or cleared by the [place] FDA. When there are no FDA-approved or cleared tests available, and other criteria are met, FDA can make tests available under an emergency access mechanism called an Emergency Use Authorization (EUA). The EUA for this test is supported by the Facilities Operations Technician of Health and Human Service's (HHS's) [...] SARS-CoV-2. Performed By: #### C VDTB #### [facility] [address] [place] [address] Dr. Jodi Roman CBC AUTO DIFFon 11-11-2021 BASO # 0.1 103/ul Normal 0.0-0.1 [facility] Comment on above: Performed By: #### C BC #### [facility] [address] [place] [address] Dr. Jodi Roman Basophils/100 WBC (Bld) 0.5 % Normal 0.2-2.0 [facility] Comment on above: Performed By: #### C BC #### [facility] [address] [place] [address] Dr. Jodi Roman EO # 0.2 103/ul Normal 0.0-0.7 [facility] Comment on above: Performed By: #### C BC #### [facility] [address] [place] [address] Dr. Jodi Roman Eosinophils/100 WBC (Bld) 1.9 % Normal 0.9-7.0 [facility] Comment on above: Performed By: #### C BC #### [facility] [address] [place] [address] Dr. Jodi Roman Erythrocyte distribution width (RBC) [Ratio] 13.6 % Normal 11.0-15.0 [facility] Comment on above: Performed By: #### C BC #### [facility] [address] [place] [address] Dr. Jodi Roman Hematocrit (Bld) [Volume fraction] 28.6 % Critically low 42.0-54.0 [facility] Comment on above: Performed By: #### C BC #### [facility] [address] [place] [address] Dr. Jodi Roman Hemoglobin (Bld) [Mass/Vol] 9.4 g/dL Critically low 14.0-18.0 [facility] Comment on above: Performed By: #### C BC #### [facility] [address] [place] [address] Dr. Jodi Roman IG # 0.08 10e3/ul Critically high 0.00-0.03 [facility] Comment on above: Performed By: #### C BC #### [facility] [address] [place] [address] Dr. Jodi Roman IG % 0.8 % Critically high 0.0-0.5 [facility] Comment on above: Performed By: #### C BC #### [facility] [address] [place] [address] Dr. Jodi Roman LYMPH # 1.3 103/ul Normal 1.2-3.8 [facility] Comment on above: Performed By: #### C BC #### [facility] [address] [place] [address] Dr. Jodi Roman Lymphocytes/100 WBC (Bld) 13.0 % Critically low 20.5-60.0 [facility] Comment on above: Performed By: #### C BC #### [facility] [address] [place] [address] Dr. Jodi Roman MANUAL DIFF REQ NO Normal [facility] Comment on above: Performed By: #### C BC #### [facility] [address] [place] [address] Dr. Jodi Roman MCH (RBC) [Entitic mass] 31.5 pg Normal 25.9-34.0 [facility] Comment on above: Performed By: #### C BC #### [facility] [address] [place] [address] Dr. Jodi Roman MCHC (RBC) [Mass/Vol] 32.9 g/dL Normal 29.9-35.2 [facility] Comment on above: Performed By: #### C BC #### [facility] [address] [place] [address] Dr. Jodi Roman MCV (RBC) [Entitic vol] 96.0 fL Critically high 80.0-94.0 [facility] Comment on above: Performed By: #### C BC #### [facility] [address] [place] [address] Dr. Jodi Roman MONO # 1.1 103/ul Critically high 0.3-0.8 [facility] Comment on above: Performed By: #### C BC #### [facility] [address] [place] [address] Dr. Jodi Roman Monocytes/100 WBC (Bld) 10.7 % Normal 1.7-12.0 [facility] Comment on above: Performed By: #### C BC #### [facility] [address] [place] [address] Dr. Jodi Roman NEUT # 7.4 103/ul Critically high 1.4-6.5 [facility] Comment on above: Performed By: #### C BC #### [facility] [address] [place] [address] Dr. Jodi Roman Neutrophils/100 WBC (Bld) 73.1 % Normal 43.0-75.0 [facility] Comment on above: Performed By: #### C BC #### [facility] [address] [place], [place] [address] Dr. Jodi Roman Platelet mean volume (Bld) [Entitic vol] 9.3 fL Critically low 9.5-13.5 [facility] Comment on above: Performed By: #### C BC #### [facility] [address] [place], [place] [address] Dr. Jodi Roman PLT 288 103/ul Normal 150-450 [facility] Comment on above: Performed By: #### C BC #### [facility] [id number] Jodi Roman RBC 2.98 106/ul Critically low 4.70-6.10 [facility] Comment on above: Performed By: #### C BC #### [facility] [address] [place], [place] [id number] Dr. Jodi Roman WBC 10.1 103/ul Normal 4.0-11.0 [facility] Comment on above: Performed By: #### C BC #### [facility] [address] [place] [address] ABD/PELVIS WO CONon 11-11 CT ABD/PELVIS [...] TAYO CASTILLO Date: 2021-11-11 03:10 Normal [facility] Covid-19 PCR (CVDTB)on SARS-CoV-2 (COVID-19) RNA JESSIE+probe Ql (Unsp spec) Not detected Normal NOT DETECTED [facility] Comment on above: Result Comment: When [...] for this test is supported by the [place] of Health and Human Service's declaration that [...] used). Performed By: #### C BC #### [facility] [address] [place] [address] Dr. Jodi Roman OCC BLD IMMUNO SCREENon OCCULT BLOOD Negative Normal NEGATIVE [facility] Comment on above: Performed By: #### D ATA1C #### [facility] [address] [place] [address] Dr. Jodi Roman PROF 14(COMP METB)on 022 Albumin [Mass/Vol] 3.0 g/dL Critically low 3.4-5.0 Th e [facility] Comment on above: Performed By: #### C MP #### [facility] [address] [place] [address] Dr. Jodi Roman Albumin/Globulin [Mass ratio] 0.8 {ratio} Normal [facility] Comment on above: Performed By: #### C MP #### [facility] [address] [place] [address] Dr. Jodi Roman ALP [Catalytic activity/Vol] 126 U/L Critically high 46-116 [facility] Comment on above: Performed By: #### C MP #### [facility] [address] [place] [address] Dr. Jodi Roman ALT [Catalytic activity/Vol] 22 U/L Normal 16-63 [facility] Comment on above: Performed By: #### C MP #### [facility] [address] [address] [address] Jodi Roman Anion gap [Moles/Vol] 16.7 mmol/L Normal Th [facility] Comment on above: Performed By: #### C MP #### [facility] [address] [address] [address] Jodi Roman AST [Catalytic activity/Vol] 23 U/L Normal 15-37 [facility] Comment on above: Performed By: #### C MP #### [facility] [address] [place] [address] Dr. Jodi Roman Bilirubin [Mass/Vol] 0.6 mg/dL Normal 0.2-1.0 [facility] Comment on above: Performed By: #### C MP #### [facility] [address] [place] [address] Dr. Jodi Roman Calcium [Mass/Vol] 8.5 mg/dL Normal 8.5-10.1 [facility] Comment on above: Performed By: #### C MP #### [facility] [address] [place] [address] Dr. Jodi Roman Chloride [Moles/Vol] 99 mmol/L Normal 98-107 [facility] Comment on above: Performed By: #### C MP #### [facility] [address] [place] [address] Dr. Jodi Roman CO2 [Moles/Vol] 27.4 mmol/L Normal 21.0-32.0 [facility] Comment on above: Performed By: #### C MP #### [facility] [address] [place] [address] Dr. Jodi Roman Creatinine [Mass/Vol] 0.80 mg/dL Normal 0.70-1.30 [facility] Comment on above: Performed By: #### C MP #### [facility] [address] [place] [address] Dr. Jodi Roman EGFR-AF GERMAN >60 Normal >=60 [facility] Comment on above: Performed By: #### C MP #### [facility] [address] [place] [address] Dr. Jodi Roman EGFR-NON AF GERMAN >60 Normal >=60 [facility] Comment on above: Performed By: #### C MP #### [facility] [address] [place] [address] Dr. Jodi Roman Globulin (S) [Mass/Vol] 3.9 g/dL Normal [facility] Comment on above: Performed By: #### C MP #### [facility] [address] [address] [address] Jodi Roman Glucose [Mass/Vol] 116 mg/dL Critically high 74-106 [facility] Comment on above: Performed By: #### C MP #### [facility] [address] [address] [address] Jodi Roman Potassium [Moles/Vol] 4.1 mmol/L Normal 3.5-5.1 [facility] Comment on above: Performed By: #### C MP #### [facility] [address] [place] [address] Dr. Jodi Roman Protein [Mass/Vol] 6.9 g/dL Normal 6.4-8.2 [facility] Comment on above: Performed By: #### C MP #### [facility] [address] [place] [address] Dr. Jodi Roman Sodium [Moles/Vol] 129 mmol/L Critically low 136-145 [facility] Comment on above: Performed By: #### C MP #### [facility] [address] [place] [address] Dr. Jodi Roman Urea nitrogen [Mass/Vol] 15.0 mg/dL Normal 7.0-18.0 [facility] Comment on above: Performed By: #### C MP #### [facility] [address] [place] [address] Dr. Jodi Roman Urea nitrogen/Creatinine [Mass ratio] 18.8 mg/mg Normal [facility] Comment on above: Performed By: #### C MP #### [facility] [address] [place] [address] Dr. Jodi Roman PROTIMEon 11-11-2021 INR Coag (PPP) [Relative time] 1.01 {INR} Normal [facility] Comment on above: Performed By: #### P TT, PT #### [facility] [address] [place] [address] Dr. Jodi Roman INR GUIDELINES SEE BELOW Normal [facility] Comment on above: Result Comment: ESHA RED INR: 2.0 - 3.0 CONDITIONS NOT LISTED BELOW 2.5 - 3.5 FOR PROSTHETIC HEART VALVE REPLACEMENT 2.5 - 3.5 RECURRENT THROMBOSIS Performed By: #### P TT, PT #### [facility] [address] [place] [address] Dr. Jodi Roman PT Coag (PPP) [Time] 10.9 s Normal 9.0-11.6 [facility] Comment on above: Performed By: #### P TT, PT #### [facility] [address] [place] [address] Dr. Jodi Roman PTTon 11-11-2021 aPTT Coag (Bld) [Time] 25.4 s Normal 22.3-36.2 [facility] Comment on above: Performed By: #### P TT, PT #### [facility] [address] [place] [address] Dr. Jodi Roman CBC AUTO DIFFon 10-26-2021 BASO # 0.0 103/ul Normal 0.0-0.1 [facility] Comment on above: Performed By: #### D ATA1C #### [facility] [address] [place] [address] Dr. Jodi Roman Basophils/100 WBC (Bld) 0.3 % Normal 0.2-2.0 [facility] Comment on above: Performed By: #### D ATA1C #### [facility] [address] [place] [address] Dr. Jodi Roman EO # 0.1 103/ul Normal 0.0-0.7 [facility] Comment on above: Performed By: #### D ATA1C #### [facility] [address] [place] [address] Dr. Jodi Roman Eosinophils/100 WBC (Bld) 0.5 % Critically low 0.9-7.0 [facility] Comment on above: Performed By: #### D ATA1C #### [facility] [address] [address] [address] Jodi Roman Erythrocyte distribution width (RBC) [Ratio] 12.4 % Normal 11.0-15.0 [facility] Comment on above: Performed By: #### D ATA1C #### [facility] [address] [address] [address] Jodi Roman Hematocrit (Bld) [Volume fraction] 39.5 % Critically low 42.0-54.0 [facility] Comment on above: Performed By: #### D ATA1C #### [facility] [address] [place] [address] Dr. Jodi Roman Hemoglobin (Bld) [Mass/Vol] 12.8 g/dL Critically low 14.0-18.0 [facility] Comment on above: Performed By: #### D ATA1C #### [facility] [address] [place] [address] Dr. Jodi Roman IG # 0.07 10e3/ul Critically high 0.00-0.03 [facility] Comment on above: Performed By: #### D ATA1C #### [facility] [address] [place] [address] Dr. Jodi Roman IG % 0.5 % Normal 0.0-0.5 [facility] Comment on above: Performed By: #### D ATA1C #### [facility] [address] [place] [address] Dr. Jodi Roman LYMPH # 0.9 103/ul Critically low 1.2-3.8 [facility] Comment on above: Performed By: #### D ATA1C #### [facility] [address] [place] [address] Dr. Jodi Roman Lymphocytes/100 WBC (Bld) 6.3 % Critically low 20.5-60.0 [facility] Comment on above: Performed By: #### D ATA1C #### [facility] [address] [place] [address] Dr. Jodi Roman MANUAL DIFF REQ NO Normal [facility] Comment on above: Performed By: #### D ATA1C #### [facility] [address] [address] [address] Jodi Roman MCH (RBC) [Entitic mass] 30.8 pg Normal 25.9-34.0 [facility] Comment on above: Performed By: #### D ATA1C #### [facility] [address] [place] [address] Dr. Jodi Roman MCHC (RBC) [Mass/Vol] 32.4 g/dL Normal 29.9-35.2 [facility] Comment on above: Performed By: #### D ATA1C #### [facility] [address] [place] [address] Dr. Jodi Roman MCV (RBC) [Entitic vol] 95.2 fL Critically high 80.0-94.0 [facility] Comment on above: Performed By: #### D ATA1C #### [facility] [address] [place] [address] Dr. Jodi Roman MONO # 0.9 103/ul Critically high 0.3-0.8 [facility] Comment on above: Performed By: #### D ATA1C #### [facility] [address] [place] [address] Dr. Jodi Roman Monocytes/100 WBC (Bld) 6.2 % Normal 1.7-12.0 [facility] Comment on above: Performed By: #### D ATA1C #### [facility] [address] [place] [address] Dr. Jodi Roman NEUT # 12.8 103/ul Critically high 1.4-6.5 [facility] Comment on above: Performed By: #### D ATA1C #### [facility] [address] [place] [address] Dr. Jodi Roman Neutrophils/100 WBC (Bld) 86.2 % Critically high 43.0-75.0 [facility] Comment on above: Performed By: #### D ATA1C #### [facility] [address] [place] [address] Dr. Jodi Roman Platelet mean volume (Bld) [Entitic vol] 9.4 fL Critically low 9.5-13.5 [facility] Comment on above: Performed By: #### D ATA1C #### [facility] [address] [address] [address] Jodi Roman PLT 169 103/ul Normal 150-450 [facility] Comment on above: Performed By: #### D ATA1C #### [facility] [address] [address] [address] Jodi Roman RBC 4.15 106/ul Critically low 4.70-6.10 [facility] Comment on above: Performed By: #### D ATA1C #### [facility] [address] [address] [address] Jodi Roman WBC 14.8 103/ul Critically high 4.0-11.0 [facility] Comment on above: Performed By: #### D ATA1C #### [facility] [address] [place] [address] CHEST WO CONon 10-26-2021 CT CHEST [...] NICOLE SIMMS Date: 2021-10-26 17:38 Normal [facility] SARS-CoV-2 (COVID-19) RNA JESSIE+probe Ql (Unsp spec) Not detected Normal NOT DETECTED [facility] Comment on above: Result Comment: When [...] for this test is supported by the Facilities Operations Technician of Health and Human Service's declaration [...] used). Performed By: #### D ATA1C #### [facility] [address] [place] [address] Dr. Jodi Roman PROF CHEM 8 (BAS METB)on Anion gap [Moles/Vol] 11.7 mmol/L Normal [facility] Comment on above: Performed By: #### C BC #### [facility] [address] [place] [address] Dr. Jodi Roman Calcium [Mass/Vol] 9.2 mg/dL Normal 8.5-10.1 [facility] Comment on above: Performed By: #### C BC #### [facility] [address] [place] [address] Dr. Jodi Roman Chloride [Moles/Vol] 101 mmol/L Normal 98-107 [facility] Comment on above: Performed By: #### C BC #### [facility] [address] [place] [address] Dr. Jodi Roman CO2 [Moles/Vol] 27.6 mmol/L Normal 21.0-32.0 [facility] Comment on above: Performed By: #### C BC #### [facility] [address] [place] [address] Dr. Jodi Roman Creatinine [Mass/Vol] 0.98 mg/dL Normal 0.70-1.30 [facility] Comment on above: Performed By: #### C BC #### [facility] [address] [place] [address] Dr. Jodi Roman EGFR-AF GERMAN >60 Normal >=60 [facility] Comment on above: Performed By: #### C BC #### [facility] [address] [place] [address] Dr. Jodi Roman EGFR-NON AF GERMAN >60 Normal >=60 [facility] Comment on above: Performed By: #### C BC #### [facility] [address] [place] [address] Dr. Jodi Roman Glucose [Mass/Vol] 119 mg/dL Critically high 74-106 [facility] Comment on above: Performed By: #### C BC #### [facility] [address] [place] [address] Dr. Jodi Roman Potassium [Moles/Vol] 4.3 mmol/L Normal 3.5-5.1 [facility] Comment on above: Performed By: #### C BC #### [facility] [address] [place] [address] Dr. Jodi Roman Sodium [Moles/Vol] 136 mmol/L Normal 136-145 [facility] Comment on above: Performed By: #### C BC #### [facility] [address] [place] [address] Dr. Jodi Roman Urea nitrogen [Mass/Vol] 15.0 mg/dL Normal 7.0-18.0 [facility] Comment on above: Performed By: #### C BC #### [facility] [address] [place], [place] [address] Dr. Jodi Roman Urea nitrogen/Creatinine [Mass ratio] 15.3 mg/mg Normal [facility] Comment on above: Performed By: #### C BC #### [facility] [address] [place], [place] [address] Dr. Jodi Roman XR CLAVICLE RTon 10-26-2021 XR CLAVICLE RT [...] JANE ALDANA Date: 2021-10-26 15:37 Normal [facility] XR ELBOW RT MIN 3 VIEWSon [...] DEL CHAKRABORTY Date: 2021-10-26 17:23 Normal [facility] XR HIP RT 2 3V W [...] by: CHARLES ALEJANDRA Date: 2021-10-26 15:40 Normal [facility] CARDIAC STRESS/REST INJE CTIONon 10-21-2021 [facility] CARDIAC STRESS/REST INJECTION Patient Name: CHICO BAKER STUDY: MYOCARDIAL PERFUSION STRESS TEST WITH LEXISCAN Performing facility: [facility], [address] [place] [address], [address], [place] [address] [facility] Provider: Adil[facility] Harrington MD, [facility] PCP: Dr. Jori Dunham Supervising provider: Adilene Harrington MD, [facility] INDICATION: AAA Pre-operative risk assessment for AAA scheduled at [facility] on TBD. HISTORY: Gender: M; Age: 81 y/o ; Height: 0 cm; Weight: 0 kg. HTN; Carotid disease PAD AAA Denies smoking. COMPARISON: Previous nuclear testing completed at [facility]. Previous echo testing completed on 2020 at [facility]. ACCESSION NUMBER(S): [id number]; [id number]; [id number] ORDERING CLINICIAN: JUDAH HARRINGTON TECHNIQUE: ONE DAY [...] Electronically signed by: ALL HUDSON MD Normal [facility] No Panel Informationon 10-21 Normal -[facility]-[address] [place] Work Phone: COVID-19 Positive/NegativeOr dered By: Raul Quan on 10-13-2021 SARS-CoV-2 (COVID-19) N gene JESSIE+probe Ql (Resp) Negative Negative [facility] Comment on above: Testing for SARS-CoV -2 by RT-PCR This test was developed and its performance characteristics determined by [employer] and validated at the [facility]. This test has not been FDA [...] (Bld) [#/Vol] 0.0 10*3/uL 0.0-0.2 [facility] Basophils/100 WBC Auto (Bld) Ordered By: Raul Quan on 10-06-2021 Basophils/100 WBC (Bld) 0.7 % . [facility] Blood hemoglobin measurement (mass/volume)Ordered By: Raul Quan on 10-06-2021 Hemoglobin (Bld) [Mass/Vol] 13.1 g/dL 13.0-17.0 [facility] Blood leukocytes automated c ount (number/volume)Ordered By: Raul Quan on 10-06-2021 WBC (Bld) [#/Vol] 5.2 10*3/uL 4.5-11.0 [facility] Creatinine and Glomerular fi ltration rate.predicted panel (S/P/Bld)Ordered By: Raul Quan on 10-06-2021 Creatinine [Mass/Vol] 0.98 mg/dL 0.64-1.27 [facility] Eosinophils Auto (Bld) [#/Vo l]Ordered By: Raul Quan on 10-06-2021 Eosinophils (Bld) [#/Vol] 0.1 10*3/uL 0.0-0.45 [facility] Eosinophils/100 WBC Auto (Bl d)Ordered By: Raul Quan on 10-06-2021 Eosinophils/100 WBC (Bld) 1.3 % . [facility] Erythrocyte distribution wid th Auto (RBC) [Ratio]Ordered By: Raul Quan on 10-06-2021 Erythrocyte distribution width (RBC) [Ratio] 13.3 % 12.0-14.8 [facility] Estimated glomerular filtrat ion rate (GFR) non- AmericanOrdered By: Raul Quan on 10-06-2021 GFR/1.73 sq M.predicted among non-blacks MDRD (S/P/Bld) [Vol rate/Area] > 60 mL/Min [facility] Hematocrit Auto (Bld) [Volum e fraction]Ordered By: Raul Quan on 10-06-2021 Hematocrit (Bld) [Volume fraction] 40.4 % 38.8-50.0 [facility] - Hematology and Cell countsOrdered By: Raul Quan on 10-06-2021 Nucleated RBC/100 WBC (Bld) [Ratio] 0.0 % 0-0.5 [facility] Lymphocytes Auto (Bld) [#/Vo l]Ordered By: Raul Quan on 10-06-2021 Lymphocytes (Bld) [#/Vol] 1.0 10*3/uL 1.00-4.8 [facility] Lymphocytes/100 WBC Auto (Bl d)Ordered By: Raul Quan on 10-06-2021 Lymphocytes/100 WBC (Bld) 18.4 % . [facility] MCH Auto (RBC) [Entitic mass ]Ordered By: Raul Quan on 10-06-2021 MCH (RBC) [Entitic mass] 30.9 pg 27.5-35.2 [facility] MCHC Auto (RBC) [Mass/Vol]Or dered By: Raul Quan on 10-06-2021 MCHC (RBC) [Mass/Vol] 32.5 g/dL 32.5-35.6 [facility] MCV Auto (RBC) [Entitic vol] Ordered By: Raul Quan on 10-06-2021 MCV (RBC) [Entitic vol] 95.2 fL 83.5-101 [facility] Monocytes Auto (Bld) [#/Vol] Ordered By: Raul Quan on 10-06-2021 Monocytes (Bld) [#/Vol] 0.6 10*3/uL 0.0-0.8 [facility] Monocytes/100 WBC Auto (Bld) Ordered By: Raul Quan on 10-06-2021 Monocytes/100 WBC (Bld) 12.0 % . [facility] Neutrophils Auto (Bld) [#/Vo l]Ordered By: Raul Quan on 10-06-2021 Neutrophils (Bld) [#/Vol] 3.5 10*3/uL 1.8-7.7 [facility] Neutrophils/100 WBC Auto (Bl d)Ordered By: Raul Quan on 10-06-2021 Neutrophils/100 WBC (Bld) 67.6 % . [facility] No Panel InformationOrdered By: Raul Quan on 10-06-2021 Estimated GFR () > 60 mL/Min [facility] Comment on above: GFR estimated refere nce range: According to KDOQI guidelines, <60 ml/min/1.73m2 is sufficient to diagnose a patient with chronic kidney disease. Pharmacy Creatinine Clearance (Chem N/A [facility] Platelet mean volume Auto (B ld) [Entitic vol]Ordered By: Raul Quan on 10-06-2021 Platelet mean volume (Bld) [Entitic vol] 8.1 fL 6.6-10.1 [facility] Platelets Auto (Bld) [#/Vol] Ordered By: Raul Quan on 10-06-2021 Platelets (Bld) [#/Vol] 185 10*3/uL 150-450 [facility] RBC Auto (Bld) [#/Vol]Ordere d By: Raul Quan on 10-06-2021 RBC (Bld) [#/Vol] 4.25 10*6/uL 3.90-5.60 [facility] Serum or plasma calcium richy urement (mass/volume)Ordered By: Raul Quan on 10-06-2021 Calcium [Mass/Vol] 9.0 mg/dL 8.2-10.2 [facility] Serum or plasma chloride young surement (moles/volume)Ordered By: Raul Quan on 10-06-2021 Chloride [Moles/Vol] 101 mmol/L 95-114 [facility] Serum or plasma glucose richy urement (mass/volume)Ordered By: Raul Quan on 10-06-2021 Glucose [Mass/Vol] 187 mg/dL 70-100 [facility] Comment on above: ADA recommended refe rence range Random Glucose Reference Range is dependent on time and content of last meal. Glucose of more than 200 mg/dL in a nonstressed, ambulatory subject supports the diagnosis of Diabetes Mellitus. Serum or plasma potassium me asurement (moles/volume)Ordered By: Raul Quan on 10-06-2021 Potassium [Moles/Vol] 4.0 mmol/L 3.5-5.1 [facility] Serum or plasma sodium measu rement (moles/volume)Ordered By: Raul Quan on 10-06-2021 Sodium [Moles/Vol] 135 mmol/L 136-146 [facility] Serum or plasma total carbon dioxide measurement (moles/volume)Ordered By: Raul Quan on 10-06-2021 CO2 [Moles/Vol] 25.1 mmol/L 22.0-30.0 [facility] Serum or plasma urea nitroge n measurement (mass/volume)Ordered By: Raul Quan on 10-06-2021 Urea nitrogen [Mass/Vol] 13 mg/dL 9- [facility] CBC AUTO DIFFon 09-22-2021 BASO # 0.0 103/ul Normal 0.0-0.1 [facility] Comment on above: Performed By: #### C BC #### [facility] [address] [address] [address] Jodi Roman Basophils/100 WBC (Bld) 0.3 % Normal 0.2-2.0 [facility] Comment on above: Performed By: #### C BC #### [facility] [address] [address] [address] Jodi Roman EO # 0.1 103/ul Normal 0.0-0.7 [facility] Comment on above: Performed By: #### C BC #### [facility] [address] [address] [address] Jodi Roman Eosinophils/100 WBC (Bld) 0.8 % Critically low 0.9-7.0 [facility] Comment on above: Performed By: #### C BC #### [facility] [address] [address] [address] Jodi Roman Erythrocyte distribution width (RBC) [Ratio] 12.5 % Normal 11.0-15.0 [facility] Comment on above: Performed By: #### C BC #### [facility] [address] [address] [address] Jodi Roman Hematocrit (Bld) [Volume fraction] 43.6 % Normal 42.0-54.0 [facility] Comment on above: Performed By: #### C BC #### [facility] [address] [place] [address] Dr. Jodi Roman Hemoglobin (Bld) [Mass/Vol] 14.1 g/dL Normal 14.0-18.0 [facility] Comment on above: Performed By: #### C BC #### [facility] [address] [place] [address] Dr. Jodi Roman IG # 0.03 10e3/ul Normal 0.00-0.03 [facility] Comment on above: Performed By: #### C BC #### [facility] [address] [place] [address] Dr. Jodi Roman IG % 0.3 % Normal 0.0-0.5 [facility] Comment on above: Performed By: #### C BC #### [facility] [address] [place] [address] Dr. Jodi Roman LYMPH # 1.5 103/ul Normal 1.2-3.8 [facility] Comment on above: Performed By: #### C BC #### [facility] [address] [place] [address] Dr. Jodi Roman Lymphocytes/100 WBC (Bld) 17.2 % Critically low 20.5-60.0 [facility] Comment on above: Performed By: #### C BC #### [facility] [address] [place] [address] Dr. Jodi Roman MANUAL DIFF REQ NO Normal [facility] Comment on above: Performed By: #### C BC #### [facility] [address] [place] [address] Dr. Jodi Roman MCH (RBC) [Entitic mass] 31.1 pg Normal 25.9-34.0 [facility] Comment on above: Performed By: #### C BC #### [facility] [address] [place] [address] Dr. Jodi Roman MCHC (RBC) [Mass/Vol] 32.3 g/dL Normal 29.9-35.2 [facility] Comment on above: Performed By: #### C BC #### [facility] [address] [address] [address] Jodi Roman MCV (RBC) [Entitic vol] 96.0 fL Critically high 80.0-94.0 [facility] Comment on above: Performed By: #### C BC #### [facility] [address] [address] [address] Jodi Roman MONO # 1.0 103/ul Critically high 0.3-0.8 [facility] Comment on above: Performed By: #### C BC #### [facility] [address] [address] [address] Jodi Roman Monocytes/100 WBC (Bld) 10.8 % Normal 1.7-12.0 [facility] Comment on above: Performed By: #### C BC #### [facility] [address] [place] [address] Dr. Jodi Roman NEUT # 6.2 103/ul Normal 1.4-6.5 [facility] Comment on above: Performed By: #### C BC #### [facility] [address] [place] [address] Dr. Jodi Roman Neutrophils/100 WBC (Bld) 70.6 % Normal 43.0-75.0 [facility] Comment on above: Performed By: #### C BC #### [facility] [address] [place] [address] Dr. Jodi Roman Platelet mean volume (Bld) [Entitic vol] 9.6 fL Normal 9.5-13.5 [facility] Comment on above: Performed By: #### C BC #### [facility] [address] [place] [address] Dr. Jodi Roman PLT 206 103/ul Normal 150-450 [facility] Comment on above: Performed By: #### C BC #### [facility] [address] [place] [address] Dr. Jodi Roman RBC 4.54 106/ul Critically low 4.70-6.10 [facility] Comment on above: Performed By: #### C BC #### [facility] [address] [address] [address] Jodi Roman WBC 8.8 103/ul Normal 4.0-11.0 [facility] Comment on above: Performed By: #### C BC #### [facility] [address] [place] [address] Dr. Jodi Roman PROF CHEM 8 (BAS METB)on Anion gap [Moles/Vol] 9.5 mmol/L Normal [facility] Comment on above: Performed By: #### B MP #### [facility] [address] [place] [address] Dr. Jodi Roman Calcium [Mass/Vol] 9.4 mg/dL Normal 8.5-10.1 [facility] Comment on above: Performed By: #### B MP #### [facility] [address] [place] [address] Dr. Jodi Roman Chloride [Moles/Vol] 100 mmol/L Normal 98-107 [facility] Comment on above: Performed By: #### B MP #### [facility] [address] [place] [address] Dr. Jodi Roman CO2 [Moles/Vol] 33.2 mmol/L Critically high 21.0-32.0 [facility] Comment on above: Performed By: #### B MP #### [facility] [address] [place] [address] Dr. Jodi Roman Creatinine [Mass/Vol] 0.99 mg/dL Normal 0.70-1.30 [facility] Comment on above: Performed By: #### B MP #### [facility] [address] [place] [address] Dr. Jodi Roman EGFR-AF GERMAN >60 Normal >=60 [facility] Comment on above: Performed By: #### B MP #### [facility] [address] [place] [address] Dr. Jodi Roman EGFR-NON AF GERMAN >60 Normal >=60 [facility] Comment on above: Performed By: #### B MP #### [facility] [address] [place] [address] Dr. Jodi Roman Glucose [Mass/Vol] 109 mg/dL Critically high 74-106 [facility] Comment on above: Performed By: #### B MP #### [facility] [address] [place], [place] [address] Dr. Jodi Roman Potassium [Moles/Vol] 4.7 mmol/L Normal 3.5-5.1 [facility] Comment on above: Performed By: #### B MP #### [facility] [id number] Jodi Roman Sodium [Moles/Vol] 138 mmol/L Normal 136-145 [facility] Comment on above: Performed By: #### B MP #### [facility] [id number] Jodi Roman Urea nitrogen [Mass/Vol] 17.0 mg/dL Normal 7.0-18.0 [facility] Comment on above: Performed By: #### B MP #### [facility] [id number] Jodi Roman Urea nitrogen/Creatinine [Mass ratio] 17.2 mg/mg Normal [facility] Comment on above: Performed By: #### B MP #### [facility] [id number] Jodi Roman Creatinine (Bld) [Mass/Vol]O rdered By: Tamar Perea on 09-18-2021 Creatinine [Mass/Vol] 0.8 mg/dL 0.6-1.3 [facility] Comment on above: ER/ESD physician is notified/shown all ISTAT results. Critical values may be confirmed by laboratory testing if deemed necessary by ER attending doctor. No Panel InformationOrdered By: Tamar Perea on 09-18-2021 POC Estimated GFR > 60 [facility] Comment on above: GFR estimated refere nce range: According to KDOQI guidelines, <60 ml/min/1.73m2 is sufficient to diagnose a patient with chronic kidney disease. POC Estimated GFR Non- Amer > 60 [facility] CBC AUTO DIFFon 08-12-2021 BASO # 0.0 103/ul Normal 0.0-0.1 [facility] Comment on above: Performed By: #### C BC #### [facility] [address] [place] [address] Dr. Jodi Roman Basophils/100 WBC (Bld) 0.3 % Normal 0.2-2.0 [facility] Comment on above: Performed By: #### C BC #### [facility] [address] [place] [address] Dr. Jodi Roman EO # 0.1 103/ul Normal 0.0-0.7 [facility] Comment on above: Performed By: #### C BC #### [facility] [address] [place] [address] Dr. Jodi Roman Eosinophils/100 WBC (Bld) 1.8 % Normal 0.9-7.0 [facility] Comment on above: Performed By: #### C BC #### [facility] [address] [place] [address] Dr. Jodi Roman Erythrocyte distribution width (RBC) [Ratio] 12.6 % Normal 11.0-15.0 [facility] Comment on above: Performed By: #### C BC #### [facility] [address] [place] [address] Dr. Jodi Roman Hematocrit (Bld) [Volume fraction] 40.9 % Critically low 42.0-54.0 [facility] Comment on above: Performed By: #### C BC #### [facility] [address] [place] [address] Dr. Jodi Roman Hemoglobin (Bld) [Mass/Vol] 13.4 g/dL Critically low 14.0-18.0 [facility] Comment on above: Performed By: #### C BC #### [facility] [address] [place] [address] Dr. Jodi Roman IG # 0.03 10e3/ul Normal 0.00-0.03 [facility] Comment on above: Performed By: #### C BC #### [facility] [address] [place] [address] Dr. Jodi Roman IG % 0.4 % Normal 0.0-0.5 [facility] Comment on above: Performed By: #### C BC #### [facility] [address] [place] [address] Dr. Jodi Roman LYMPH # 1.4 103/ul Normal 1.2-3.8 [facility] Comment on above: Performed By: #### C BC #### [facility] [address] [place] [address] Dr. Jodi Roman Lymphocytes/100 WBC (Bld) 18.6 % Critically low 20.5-60.0 [facility] Comment on above: Performed By: #### C BC #### [facility] [address] [place] [address] Dr. Jodi Roman MCH (RBC) [Entitic mass] 31.5 pg Normal 25.9-34.0 [facility] Comment on above: Performed By: #### C BC #### [facility] [address] [place] [address] Dr. Jodi Roman MCHC (RBC) [Mass/Vol] 32.8 g/dL Normal 29.9-35.2 [facility] Comment on above: Performed By: #### C BC #### [facility] [address] [place] [address] Dr. Jodi Roman MCV (RBC) [Entitic vol] 96.0 fL Critically high 80.0-94.0 [facility] Comment on above: Performed By: #### C BC #### [facility] [address] [place] [address] Dr. Jodi Roman MONO # 0.7 103/ul Normal 0.3-0.8 [facility] Comment on above: Performed By: #### C BC #### [facility] [address] [place] [address] Dr. Jodi Roman Monocytes/100 WBC (Bld) 9.7 % Normal 1.7-12.0 [facility] Comment on above: Performed By: #### C BC #### [facility] [address] [place] [address] Dr. Jodi Roman NEUT # 5.1 103/ul Normal 1.4-6.5 [facility] Comment on above: Performed By: #### C BC #### [facility] [address] [place] [address] Dr. Jodi Roman Neutrophils/100 WBC (Bld) 69.2 % Normal 43.0-75.0 [facility] Comment on above: Performed By: #### C BC #### [facility] [address] [place] [address] Dr. Jodi Roman Platelet mean volume (Bld) [Entitic vol] 9.8 fL Normal 9.5-13.5 [facility] Comment on above: Performed By: #### C BC #### [facility] [address] [place] [address] Dr. Jodi Roman PLT 195 103/ul Normal 150-450 [facility] Comment on above: Performed By: #### C BC #### [facility] [address] [place] [address] Dr. Jodi Roman RBC 4.26 106/ul Critically low 4.70-6.10 [facility] Comment on above: Performed By: #### C BC #### [facility] [address] [place] [address] Dr. Jodi Roman WBC 7.4 103/ul Normal 4.0-11.0 [facility] Comment on above: Performed By: #### C BC #### [facility] [address] [place] [address] Dr. Jodi Roman ASHLEY - TSHon 08-12-2021 TSH 1.879 uIU/mL Normal 0.358-3.74 0 [facility] Comment on above: Performed By: #### D ATTSH, DATBMP #### [facility] [address] [place] [address] Dr. Jodi Roman TSH RANGE SEE BELOW Normal [facility] Comment on above: Result Comment: <0.3 4 UIU/ml HYPERTHYROID 0.34-5.60 UIU/ml EUTHYROID >5.60 UIU/ml HYPOTHYROID Performed By: #### D ATTSH, DATBMP #### [facility] [address] [address] [address] Jodi Roman ASHLEY- BMP WITH LIPIDon 2021 Anion gap [Moles/Vol] 11.4 mmol/L Normal [facility] Comment on above: Performed By: #### D ATTSH, DATBMP #### [facility] [address] [address] [address] Jodi Roman Calcium [Mass/Vol] 8.7 mg/dL Normal 8.5-10.1 [facility] Comment on above: Performed By: #### D ATTSH, DATBMP #### [facility] [address] [address] [address] Jodi Roman Chloride [Moles/Vol] 105 mmol/L Normal 98-107 [facility] Comment on above: Performed By: #### D ATTSH, DATBMP #### [facility] [address] [place] [address] Dr. Jodi Roman Cholesterol [Mass/Vol] 113 mg/dL Normal <=200 [facility] Comment on above: Performed By: #### D ATTSH, DATBMP #### [facility] [address] [address] [address] Jodi Roman Cholesterol in HDL [Mass/Vol] 47 mg/dL Normal 40-60 [facility] Comment on above: Performed By: #### D ATTSH, DATBMP #### [facility] [address] [place] [address] Dr. Jodi Roman Cholesterol in LDL [Mass/Vol] 58.0 mg/dL Normal [facility] Comment on above: Performed By: #### D ATTSH, DATBMP #### [facility] [address] [place] [address] Dr. Jodi Roman CO2 [Moles/Vol] 29.0 mmol/L Normal 21.0-32.0 [facility] Comment on above: Performed By: #### D ATTSH, DATBMP #### [facility] [address] [place] [address] Dr. Jodi Roman Creatinine [Mass/Vol] 0.99 mg/dL Normal 0.70-1.30 [facility] Comment on above: Performed By: #### D ATTSH, DATBMP #### [facility] [address] [address] [address] Jodi Roman EGFR-AF GERMAN >60 Normal >=60 [facility] Comment on above: Performed By: #### D ATTSH, DATBMP #### [facility] [address] [address] [address] Jodi Roman EGFR-NON AF GERMAN >60 Normal >=60 [facility] Comment on above: Performed By: #### D ATTSH, DATBMP #### [facility] [address] [address] [address] Jodi Roman Glucose [Mass/Vol] 116 mg/dL Critically high 74-106 [facility] Comment on above: Performed By: #### D ATTSH, DATBMP #### [facility] [address] [address] [address] Jodi Roman HDL NORMAL > or = 60 mg/dl - LO W CARDIOVASCULAR RISK <40 mg/dl - HIGH CARDIOVASCULAR RISK Normal [facility] Comment on above: Performed By: #### D ATTSH, DATBMP #### [facility] [address] [address] [address] Jodi Roman LDL CALC NORMAL SEE BELOW Normal [facility] Comment on above: Result Comment: <100 mg/dl OPTIMAL 100 - 129 mg/dl NEAR OR ABOVE OPTIMAL 130 - 159 mg/dl BORDERLINE HIGH 160 - 189 mg/dl HIGH >190 mg/dl VERY HIGH Performed By: #### D ATTSH, DATBMP #### [facility] [address] [address] [address] Jodi Roman Potassium [Moles/Vol] 4.4 mmol/L Normal 3.5-5.1 [facility] Comment on above: Performed By: #### D ATTSH, DATBMP #### [facility] [address] [address] [address] Jodi Roman Sodium [Moles/Vol] 141 mmol/L Normal 136-145 [facility] Comment on above: Performed By: #### D ATTSH, DATBMP #### [facility] [address] [address] [address] Jodi Roman Triglyceride [Mass/Vol] 40 mg/dL Normal <=150 [facility] Comment on above: Performed By: #### D ATTKENDELL, DATBMP #### [facility] [address] [address] [address] Jodi Roman Urea nitrogen [Mass/Vol] 16.0 mg/dL Normal 7.0-18.0 [facility] Comment on above: Performed By: #### D LULU DATBMP #### [facility] [address] [address] [address] Jodi Roman Urea nitrogen/Creatinine [Mass ratio] 16.2 mg/mg Normal [facility] Comment on above: Performed By: #### D LULU DATBMP #### [facility] [address] [place] [address] Dr. Jodi Roman VLDL CALC 8.0 mg/dL Normal [facility] Comment on above: Performed By: #### D LULU DATBMP #### [facility] [address] [place] [address] Dr. Jodi Roman GLYCOHEMOGLOBIN A1Con 2021 ADA RECOMMENDATION SEE BELOW Normal [facility] Comment on above: Result Comment: ADA RECOMMENDED LIMIT 4.0 - 6.0 ADA THERAPEUTIC TARGET < 7.0 ACTION SUGGESTED > 7.0 Performed By: #### D ATA1C #### [facility] [address] [place] [address] Dr. Jodi Roman Glucose [Mass/Vol] 131 mg/dL Normal [facility] Comment on above: Performed By: #### D ATA1C #### [facility] [address] [address] [address] Jodi Roman HbA1c (Bld) [Mass fraction] 6.2 % Normal 4.5-6.2 [facility] Comment on above: Performed By: #### D ATA1C #### [facility] [address] [place] [address] Dr. Jodi Roman CNOVon 12-11-2020 CNOV Office Visit ([facility] ) -- CHICO BAKER ([id number]) 1940 M Date Time Provider Department 12/11/20 10:45 AM POWER CATHERINE During your visit today, we recorded the following information about you: Pulse Blood pressure Weight Height 60/minute 122/78 67.6 kg 1.702 m Power Catherine MD 12/11/2020 11:17 AM Signed [facility] OUTPATIENT VISIT DATE December 11, 2020 OUTPATIENT VISIT TYPE EST PRIMARY CARE PHYSICIAN: Shailesh Dunham ([facility]) [address] [id number] REFERRING PHYSICIAN Power Catherine [address] [facility] [id number] CHIEF COMPLAINT: Patient presents with: Established Patient [...] Power Catherine MD Referring Provider: POWER CATHERINE [[id number]] Allergies As of Date: 12/11/2020 Noted Allergy Reaction SHALINI INHIBITORS 05/09/2015 16 - Unknown GADOLINIUM-CONTAINING CONTRAST ME*05/09/2015 16 - Unknown TETANUS VACCINES AND TOXOID 05/16/2015 16 - Unknown Date Reviewed: 12/11/2020 Reviewed by: Harika Menjivar - Fully Assessed Reason for Visit: Established Patient [175] Follow Up [171] 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 - nitroglycerin sublingual (NITROQUICK) 0.3 mg SL tablet (more content not included)... Normal [facility] 10-30-2020 CNPN Telephone ([facility]) -- CHICO BAKER ([id number]) 1940 M Date Time Provider Department 10/30/20 [...] [I71.4] Order(s):US ABD AORTA [facility] [[id number]] Order #: [id number] FUTURE Prescriptions as of 11/04/2020 - aspirin, [...] Status:Closed by SHERI MOLINA on 11/04/20 Normal [facility] Vital Signs Date Time Vital Sign Value Performing Clinician Facility 08-14-2024 11:41-0400 Body height 167.64 cm [facility] 08-14-2024 11:41-0400 Body mass index (BMI) [Ratio] 20.6 kg/m2 [facility] 08-14-2024 11:41-0400 Body weight 58.05 kg [facility] 08-14-2024 11:41-0400 Diastolic blood pressure 67 mm[Hg] [facility] 08-14-2024 11:41-0400 Heart rate 83 /min [facility] 08-14-2024 11:41-0400 Respiratory rate 12 /min [facility] 08-14-2024 11:41-0400 SaO2% (BldA) [Mass fraction] 94 % [facility] 08-14-2024 11:41-0400 Systolic blood pressure 124 mm[Hg] [facility] 07-12-2024 15:20-0400 Body height 167.64 cm [facility] 07-12-2024 15:20-0400 Body mass index (BMI) [Ratio] 21.3 kg/m2 [facility] 07-12-2024 15:20-0400 Body weight 60.04 kg [facility] 07-12-2024 15:20-0400 Diastolic blood pressure 86 mm[Hg] [facility] 07-12-2024 15:20-0400 Diastolic blood pressure 89 mm[Hg] [facility] 07-12-2024 15:20-0400 Heart rate 66 /min [facility] 07-12-2024 15:20-0400 Respiratory rate 12 /min [facility] 07-12-2024 15:20-0400 Systolic blood pressure 164 mm[Hg] [facility] 07-12-2024 15:20-0400 Systolic blood pressure 139 mm[Hg] [facility] 01-11-2024 11:02-0500 Body height 167.64 cm DO Shailesh Ball Work Phone: [facility] 01-11-2024 11:02-0500 Body mass index (BMI) [Ratio] 21.7 kg/m2 DO Shailesh Ball Work Phone: [facility] 01-11-2024 11:02-0500 Body temperature 97.8 [degF] DO Shailesh Ball Work Phone: [facility] 01-11-2024 11:02-0500 Body weight 61.23 kg DO Shailesh Ball Work Phone: [facility] 01-11-2024 11:02-0500 Diastolic blood pressure 60 mm[Hg] DO Shailesh Ball Work Phone: [facility] 01-11-2024 11:02-0500 Heart rate 60 /min DO Shailesh Ball Work Phone: [facility] 01-11-2024 11:02-0500 SaO2% (BldA) [Mass fraction] 96 % DO Shailesh Ball Work Phone: [facility] 01-11-2024 11:02-0500 Systolic blood pressure 122 mm[Hg] DO Shailesh Ball Work Phone: [facility] 12-22-2023 13:06-0400 Body height 170.18 cm DO Shailesh Ball Work Phone: [facility] 12-22-2023 13:06-0400 Body mass index (BMI) [Ratio] 21.2 kg/m2 DO Shailesh Ball Work Phone: [facility] 12-22-2023 13:06-0400 Body weight 61.34 kg DO Shailesh Ball Work Phone: [facility] 12-22-2023 13:06-0400 Diastolic blood pressure 80 mm[Hg] DO Shailesh Ball Work Phone: [facility] 12-22-2023 13:06-0400 Diastolic blood pressure 89 mm[Hg] DO Shailesh Ball Work Phone: [facility] 12-22-2023 13:06-0400 Heart rate 62 /min DO Shailesh Ball Work Phone: [facility] 12-22-2023 13:06-0400 Respiratory rate 12 /min DO Shailesh Ball Work Phone: [facility] 12-22-2023 13:06-0400 Systolic blood pressure 173 mm[Hg] DO Shailesh Ball Work Phone: [facility] 12-22-2023 13:06-0400 Systolic blood pressure 139 mm[Hg] DO Shailesh Ball Work Phone: [facility] 11-23-2023 10:05-0400 Body height 170.18 cm DO Shailesh Ball Work Phone: [facility] 11-23-2023 10:05-0400 Body mass index (BMI) [Ratio] 20.9 kg/m2 DO Shailesh Ball Work Phone: [facility] 11-23-2023 10:05-0400 Body weight 60.78 kg DO Shailesh Ball Work Phone: [facility] 11-23-2023 10:05-0400 Diastolic blood pressure 61 mm[Hg] DO Shailesh Ball Work Phone: [facility] 11-23-2023 10:05-0400 Heart rate 67 /min DO Shailesh Ball Work Phone: [facility] 11-23-2023 10:05-0400 Respiratory rate 12 /min DO Shailesh Ball Work Phone: [facility] 11-23-2023 10:05-0400 Systolic blood pressure 98 mm[Hg] DO Shailesh Ball Work Phone: [facility] 11-15-2023 10:21-0400 Body temperature 96.5 [degF] DO Shailesh Ball Work Phone: [facility] 11-15-2023 10:21-0400 Diastolic blood pressure 60 mm[Hg] DO Shailesh Ball Work Phone: [facility] 11-15-2023 10:21-0400 Heart rate 56 /min DO Shailesh Ball Work Phone: [facility] 11-15-2023 10:21-0400 SaO2% (BldA) [Mass fraction] 97 % DO Shailesh Ball Work Phone: [facility] 11-15-2023 10:21-0400 Systolic blood pressure 138 mm[Hg] DO Shailesh Ball Work Phone: [facility] 10-21-2023 09:08-0400 Body height 170.18 cm DO Shailesh Ball Work Phone: [facility] 10-21-2023 09:08-0400 Body mass index (BMI) [Ratio] 20.9 kg/m2 DO Shailesh Ball Work Phone: [facility] 10-21-2023 09:08-0400 Body weight 60.55 kg DO Shailesh Ball Work Phone: [facility] 10-21-2023 09:08-0400 Diastolic blood pressure 58 mm[Hg] DO Shailesh Ball Work Phone: [facility] 10-21-2023 09:08-0400 Heart rate 65 /min DO Shailesh Ball Work Phone: [facility] 10-21-2023 09:08-0400 Respiratory rate 12 /min DO Shailesh Ball Work Phone: [facility] 10-21-2023 09:08-0400 Systolic blood pressure 102 mm[Hg] DO Shailesh Ball Work Phone: [facility] 09-03-2023 08:49-0400 Body height 170.18 cm DO Shailesh Ball Work Phone: [facility] 09-03-2023 08:49-0400 Body mass index (BMI) [Ratio] 21.9 kg/m2 DO Shailesh Ball Work Phone: [facility] 09-03-2023 08:49-0400 Body weight 63.5 kg DO Shailesh Ball Work Phone: [facility] 09-03-2023 08:49-0400 Diastolic blood pressure 58 mm[Hg] DO Shailesh Ball Work Phone: [facility] 09-03-2023 08:49-0400 Heart rate 63 /min DO Shailesh Ball Work Phone: [facility] 09-03-2023 08:49-0400 Respiratory rate 18 /min DO Shailesh Ball Work Phone: [facility] 09-03-2023 08:49-0400 SaO2% (BldA) [Mass fraction] 97 % DO Shailesh Ball Work Phone: [facility] 09-03-2023 08:49-0400 Systolic blood pressure 110 mm[Hg] DO Shailesh Ball Work Phone: [facility] 08-27-2023 08:33-0400 Body height 170.18 cm DO Shailesh Ball Work Phone: [facility] 08-27-2023 08:33-0400 Body mass index (BMI) [Ratio] 21.7 kg/m2 DO Shailesh Ball Work Phone: [facility] 08-27-2023 08:33-0400 Body weight 62.76 kg DO Shailesh Ball Work Phone: [facility] 08-27-2023 08:33-0400 Diastolic blood pressure 65 mm[Hg] DO Shailesh Ball Work Phone: [facility] 08-27-2023 08:33-0400 Heart rate 64 /min DO Shailesh Ball Work Phone: [facility] 08-27-2023 08:33-0400 Respiratory rate 12 /min DO Shailesh Ball Work Phone: [facility] 08-27-2023 08:33-0400 Systolic blood pressure 132 mm[Hg] DO Shailesh Ball Work Phone: [facility] 08-19-2023 11:18-0400 Body height 170.18 cm DO Shailesh Ball Work Phone: [facility] 08-19-2023 11:18-0400 Body mass index (BMI) [Ratio] 21.9 kg/m2 DO Shailesh Ball Work Phone: [facility] 08-19-2023 11:18-0400 Body weight 63.5 kg DO Shailesh Ball Work Phone: [facility] 08-19-2023 11:18-0400 Diastolic blood pressure 56 mm[Hg] DO Shailesh Ball Work Phone: [facility] 08-19-2023 11:18-0400 Heart rate 60 /min DO Shailesh Ball Work Phone: [facility] 08-19-2023 11:18-0400 Respiratory rate 18 /min DO Shailesh Ball Work Phone: [facility] 08-19-2023 11:18-0400 SaO2% (BldA) [Mass fraction] 98 % DO Shailesh Ball Work Phone: [facility] 08-19-2023 11:18-0400 Systolic blood pressure 102 mm[Hg] DO Shailesh Ball Work Phone: [facility] 07-05-2023 10:23-0400 Body height 170.18 cm DO Shailesh Ball Work Phone: [facility] 07-05-2023 10:23-0400 Body mass index (BMI) [Ratio] 21.4 kg/m2 DO Shailesh Ball Work Phone: [facility] 07-05-2023 10:23-0400 Body temperature 97 [degF] DO Shailesh Ball Work Phone: [facility] 07-05-2023 10:23-0400 Body weight 62.14 kg DO Shailesh Ball Work Phone: [facility] 07-05-2023 10:23-0400 Diastolic blood pressure 48 mm[Hg] DO Shailesh Ball Work Phone: [facility] 07-05-2023 10:23-0400 Heart rate 60 /min DO Shailesh Ball Work Phone: [facility] 07-05-2023 10:23-0400 SaO2% (BldA) [Mass fraction] 97 % DO Shailesh Ball Work Phone: [facility] 07-05-2023 10:23-0400 Systolic blood pressure 96 mm[Hg] DO Shailesh Ball Work Phone: [facility] 06-22-2023 10:01-0400 Body height 170.18 cm DO Shailesh Ball Work Phone: [facility] 06-22-2023 10:01-0400 Body mass index (BMI) [Ratio] 21.5 kg/m2 DO Shailesh Ball Work Phone: [facility] 06-22-2023 10:01-0400 Body weight 62.36 kg DO Shailesh Ball Work Phone: [facility] 06-22-2023 10:01-0400 Diastolic blood pressure 69 mm[Hg] DO Shailesh Ball Work Phone: [facility] 06-22-2023 10:01-0400 Heart rate 64 /min DO Shailesh Ball Work Phone: [facility] 06-22-2023 10:01-0400 Respiratory rate 12 /min DO Shailesh Ball Work Phone: [facility] 06-22-2023 10:01-0400 Systolic blood pressure 95 mm[Hg] DO Shailesh Ball Work Phone: [facility] 05-04-2023 11:14-0500 Blood Pressure Location Ivelisse Lue [facility] 05-04-2023 11:14-0500 Diastolic blood pressure 46 mm[Hg] Ivelisse Lue [facility] 05-04-2023 11:14-0500 Heart rate 63 /min Ivelisse Lue [facility] 05-04-2023 11:14-0500 Systolic blood pressure 116 mm[Hg] Ivelisse Lue [facility] 04-14-2023 10:15-0500 Body height 170.18 cm Shailesh Ball Other [facility] Other 04-14-2023 10:15-0500 Body mass index (BMI) [Ratio] 21.64 kg/m2 Shailesh Ball Other [facility] Other 04-14-2023 10:15-0500 Body weight 62.69 kg Shailesh Ball Other [facility] Other 04-14-2023 10:15-0500 Diastolic blood pressure 58 mm[Hg] Shailesh Ball Other [facility] Other 04-14-2023 10:15-0500 Respiratory rate 12 /min Shailesh Ball Other [facility] Other 04-14-2023 10:15-0500 Systolic blood pressure 118 mm[Hg] Shailesh Ball Other [facility] Other 03-29-2023 10:00-0500 Body height 170.18 cm Shailesh Ball Other [facility] 03-29-2023 10:00-0500 Body mass index (BMI) [Ratio] 21.8 kg/m2 Shailesh Ball Other [facility] Other 03-29-2023 10:00-0500 Body weight 63.14 kg Shailesh Ball Other [facility] 03-29-2023 10:00-0500 Diastolic blood pressure 74 mm[Hg] Shailesh Ball Other [facility] 03-29-2023 10:00-0500 Respiratory rate 12 /min Shailesh Ball Other [facility] Other 03-29-2023 10:00-0500 Systolic blood pressure 132 mm[Hg] Shailesh Ball Other [facility] 01-13-2023 08:49-0500 Blood Pressure Location Ivelisse Lue [facility] 01-13-2023 08:49-0500 Diastolic blood pressure 74 mm[Hg] Ivelisse Lue [facility] 01-13-2023 08:49-0500 Heart rate 68 /min Ivelisse Lue [facility] 01-13-2023 08:49-0500 Respiratory rate 16 /min Ivelisse Lue [facility] 01-13-2023 08:49-0500 Systolic blood pressure 156 mm[Hg] Ivelisse Lue [facility] 11-10-2022 10:30-0400 Body height 170.18 cm Raul Quna Other [facility] Other 11-10-2022 10:30-0400 Body mass index (BMI) [Ratio] 20.99 kg/m2 Raul Lawrencemary ann Other [facility] Other 11-10-2022 10:30-0400 Body temperature 97.8 [degF] Raul Stanislawchantellmary ann Other [facility] Other 11-10-2022 10:30-0400 Body weight 60.78 kg Raul Osoriojakub Other [facility] Other 11-10-2022 10:30-0400 Diastolic blood pressure 64 mm[Hg] Raul Avelina Other [facility] Other 11-10-2022 10:30-0400 SaO2% (BldA) [Mass fraction] 98 % Raul Avelina Other [facility] Other 11-10-2022 10:30-0400 Systolic blood pressure 110 mm[Hg] Raulchristiana Quan Other [facility] Other 10-07-2022 08:49-0400 Blood Pressure Location Ivelisse Lue [facility] 10-07-2022 08:49-0400 Diastolic blood pressure 74 mm[Hg] Ivelisse Lue [facility] 10-07-2022 08:49-0400 Heart rate 75 /min Ivelisse Lue [facility] 10-07-2022 08:49-0400 Systolic blood pressure 139 mm[Hg] Ivelisse Lue [facility] 08-04-2022 11:15-0400 Body height 170.18 cm Raul Avelina Other [facility] Other 08-04-2022 11:15-0400 Body mass index (BMI) [Ratio] 21.77 kg/m2 Raul Melindarer Other [facility] Other 08-04-2022 11:15-0400 Body temperature 97.8 [degF] Raul Lawrencerer Other [facility] Other 08-04-2022 11:15-0400 Body weight 63.05 kg Raul Avelina Other [facility] Other 08-04-2022 11:15-0400 Diastolic blood pressure 68 mm[Hg] Raul Quan Other [facility] Other 08-04-2022 11:15-0400 SaO2% (BldA) [Mass fraction] 97 % Raul Quan Other [facility] Other 08-04-2022 11:15-0400 Systolic blood pressure 108 mm[Hg] Raul Lawrencerer Other [facility] Other 07-09-2022 08:00-0400 Body temperature 98.6 [degF] DO Shailesh Ball Work Phone: [facility] 07-09-2022 08:00-0400 Diastolic blood pressure 72 mm[Hg] DO Shailesh Ball Work Phone: [facility] 07-09-2022 08:00-0400 Heart rate 69 /min DO Shailesh Ball Work Phone: [facility] 07-09-2022 08:00-0400 Respiratory rate 16 /min DO Shailesh Ball Work Phone: [facility] 07-09-2022 08:00-0400 SaO2% (BldA) [Mass fraction] 97 % DO Shailesh Ball Work Phone: [facility] 07-09-2022 08:00-0400 Systolic blood pressure 154 mm[Hg] DO Shailesh Ball Work Phone: [facility] 07-09-2022 06:00-0400 Body weight 65.8 kg DO Shailesh Ball Work Phone: [facility] 07-08-2022 10:52-0400 Inhaled oxygen flow rate 8 L/min DO Shailesh Ball Work Phone: [facility] 07-08-2022 08:34-0400 Body height 167.64 cm DO Shailesh Ball Work Phone: [facility] 07-08-2022 08:34-0400 Body mass index (BMI) [Ratio] 22.7 kg/m2 DO Shailesh Ball Work Phone: [facility] 06-24-2022 09:27-0400 Blood Pressure Location Ivelisse Lue [facility] 06-24-2022 09:27-0400 Diastolic blood pressure 75 mm[Hg] Ivelisse Lue [facility] 06-24-2022 09:27-0400 Heart rate 66 /min Ivelisse Lue [facility] 06-24-2022 09:27-0400 Respiratory rate 16 /min Ivelisse Lue [facility] 06-24-2022 09:27-0400 Systolic blood pressure 120 mm[Hg] Ivelisse Lue [facility] 05-21-2022 09:30-0400 Body height 170.18 cm Shailesh Ball Other [facility] Other 05-21-2022 09:30-0400 Body mass index (BMI) [Ratio] 21.8 kg/m2 Shailesh Ball Other [facility] Other 05-21-2022 09:30-0400 Body weight 63.14 kg Shailesh Ball Other [facility] Other 05-21-2022 09:30-0400 Diastolic blood pressure 73 mm[Hg] Shailesh Ball Other [facility] Other 05-21-2022 09:30-0400 Respiratory rate 12 /min Shailesh Ball Other [facility] Other 05-21-2022 09:30-0400 Systolic blood pressure 121 mm[Hg] Shailesh Ball Other [facility] Other 05-19-2022 11:00-0400 Body height 170.18 cm Tamar Perea Other [facility] Other 05-19-2022 11:00-0400 Body mass index (BMI) [Ratio] 22.02 kg/m2 Tamar Perea Other [facility] Other 05-19-2022 11:00-0400 Body temperature 97.5 [degF] Tamar Perea Other [facility] Other 05-19-2022 11:00-0400 Body weight 63.78 kg Tamar Perea Other [facility] Other 05-19-2022 11:00-0400 Diastolic blood pressure 76 mm[Hg] Tamar Perea Other [facility] Other 05-19-2022 11:00-0400 SaO2% (BldA) [Mass fraction] 98 % Tamar Perea Other [facility] Other 05-19-2022 11:00-0400 Systolic blood pressure 148 mm[Hg] Tamar Perea Other [facility] Other 04-15-2022 08:57-0500 Blood Pressure Location Ivelisse Lue [facility] 04-15-2022 08:57-0500 Diastolic blood pressure 78 mm[Hg] Ivelisse Lue [facility] 04-15-2022 08:57-0500 Heart rate 68 /min Ivelisse Lue [facility] 04-15-2022 08:57-0500 Respiratory rate 16 /min Ivelisse Lue [facility] 04-15-2022 08:57-0500 Systolic blood pressure 122 mm[Hg] Ivelisse Lue [facility] 03-10-2022 11:30-0500 Body height 170.18 cm Raul Quan Other [facility] Other 03-10-2022 11:30-0500 Body mass index (BMI) [Ratio] 21.2 kg/m2 Raul Quan Other [facility] Other 03-10-2022 11:30-0500 Body temperature 97.8 [degF] Raul Quan Other [facility] Other 03-10-2022 11:30-0500 Body weight 61.42 kg Raul Quan Other [facility] Other 03-10-2022 11:30-0500 Diastolic blood pressure 64 mm[Hg] Raul Dovernakul Other [facility] Other 03-10-2022 11:30-0500 SaO2% (BldA) [Mass fraction] 98 % Raul Osoriojakub Other [facility] Other 03-10-2022 11:30-0500 Systolic blood pressure 108 mm[Hg] Raul Lawrencemary ann Other [facility] Other 02-25-2022 11:09-0500 Blood Pressure Location ADALGISA BUSHRY [facility] 02-25-2022 11:09-0500 Diastolic blood pressure 63 mm[Hg] ADALGISA ARASH [facility] 02-25-2022 11:09-0500 Heart rate 64 /min ADALGISA ARASH [facility] 02-25-2022 11:09-0500 Systolic blood pressure 105 mm[Hg] ADALGISA ARASH [facility] 02-18-2022 14:12-0500 Blood Pressure Location ADALGISA ARASH [facility] 02-18-2022 14:12-0500 Diastolic blood pressure 83 mm[Hg] ADALGISA BUSHRY [facility] 02-18-2022 14:12-0500 Heart rate 70 /min ADALGISA ARASH [facility] 02-18-2022 14:12-0500 Systolic blood pressure 142 mm[Hg] ADALGISA ARASH [facility] 02-11-2022 08:42-0500 Blood Pressure Location Ivelisse Lue [facility] 02-11-2022 08:42-0500 Diastolic blood pressure 73 mm[Hg] Ivelisse Lue [facility] 02-11-2022 08:42-0500 Heart rate 68 /min Ivelisse Lue [facility] 02-11-2022 08:42-0500 Respiratory rate 16 /min Ivelisse Lue [facility] 02-11-2022 08:42-0500 Systolic blood pressure 150 mm[Hg] Ivelisse Lue [facility] 02-05-2022 08:00-0500 Body temperature 99.1 [degF] DO Shailesh Ball Work Phone: [facility] 02-05-2022 08:00-0500 Diastolic blood pressure 76 mm[Hg] DO Shailesh Ball Work Phone: [facility] 02-05-2022 08:00-0500 Heart rate 78 /min DO Shailesh Ball Work Phone: [facility] 02-05-2022 08:00-0500 Respiratory rate 16 /min DO Shailesh Ball Work Phone: [facility] 02-05-2022 08:00-0500 SaO2% (BldA) [Mass fraction] 95 % DO Shailesh Ball Work Phone: [facility] 02-05-2022 08:00-0500 Systolic blood pressure 168 mm[Hg] DO Shailesh Ball Work Phone: [facility] 02-05-2022 03:21-0500 Body weight 64.1 kg DO Shailesh Ball Work Phone: [facility] 02-04-2022 11:43-0500 Inhaled oxygen flow rate 6 L/min DO Shailesh Ball Work Phone: [facility] 02-04-2022 09:31-0500 Body height 167.64 cm DO Shailesh Ball Work Phone: [facility] 02-04-2022 09:31-0500 Body mass index (BMI) [Ratio] 23.3 kg/m2 DO Shailesh Ball Work Phone: [facility] 01-20-2022 12:30-0500 Body height 170.18 cm Raul Quan Other [facility] Other 01-20-2022 12:30-0500 Body mass index (BMI) [Ratio] 21.92 kg/m2 Raul Quan Other [facility] Other 01-20-2022 12:30-0500 Body temperature 97.7 [degF] Raul Quan Other [facility] Other 01-20-2022 12:30-0500 Body weight 63.5 kg Raul Quan Other [facility] Other 01-20-2022 12:30-0500 Diastolic blood pressure 64 mm[Hg] Raul Quan Other [facility] Other 01-20-2022 12:30-0500 SaO2% (BldA) [Mass fraction] 99 % Raul Buehrer Other [facility] Other 01-20-2022 12:30-0500 Systolic blood pressure 116 mm[Hg] Raul Buehrer Other [facility] Other 01-05-2022 11:15-0400 Body height 170.18 cm Raul Buehrer Other [facility] Other 01-05-2022 11:15-0400 Body mass index (BMI) [Ratio] 21.92 kg/m2 Raul Buehrer Other [facility] Other 01-05-2022 11:15-0400 Body temperature 96 [degF] Raul Buehrer Other [facility] Other 01-05-2022 11:15-0400 Body weight 63.5 kg Raul Buehrer Other [facility] Other 01-05-2022 11:15-0400 Diastolic blood pressure 58 mm[Hg] Raul Buehrer Other [facility] Other 01-05-2022 11:15-0400 SaO2% (BldA) [Mass fraction] 99 % Raul Buehrer Other [facility] Other 01-05-2022 11:15-0400 Systolic blood pressure 100 mm[Hg] Raul Buehrer Other [facility] Other 11-24-2021 12:30-0400 Body height 170.18 cm Tamar Perea Other [facility] Other 11-24-2021 12:30-0400 Body mass index (BMI) [Ratio] 21.92 kg/m2 Tamar Perea Other [facility] Other 11-24-2021 12:30-0400 Body temperature 97.5 [degF] Tamar Perea Other [facility] Other 11-24-2021 12:30-0400 Body weight 63.5 kg Tamar Perea Other [facility] Other 11-24-2021 12:30-0400 Diastolic blood pressure 50 mm[Hg] Tamar Perea Other [facility] Other 11-24-2021 12:30-0400 SaO2% (BldA) [Mass fraction] 98 % Tamar Perea Other [facility] Other 11-24-2021 12:30-0400 Systolic blood pressure 96 mm[Hg] Tamar Perea Other [facility] Other 10-21-2021 07:30-0400 50 1 Shailesh E Ball Work Phone: [facility] [address] [place] Work Phone: Comment on above: [id number] 10-15-2021 08:27-0400 Body height 167.64 cm DO Shailesh Ball Work Phone: [facility] 10-15-2021 08:27-0400 Body temperature 97.7 [degF] DO Shailesh Ball Work Phone: [facility] 10-15-2021 08:27-0400 Body weight 66 kg DO Shailesh Ball Work Phone: [facility] 10-15-2021 08:27-0400 Diastolic blood pressure 75 mm[Hg] DO Shailesh Ball Work Phone: [facility] 10-15-2021 08:27-0400 Heart rate 73 /min DO Shailesh Ball Work Phone: [facility] 10-15-2021 08:27-0400 Respiratory rate 16 /min DO Shailesh Ball Work Phone: [facility] 10-15-2021 08:27-0400 SaO2% (BldA) [Mass fraction] 97 % DO Shailesh Ball Work Phone: [facility] 10-15-2021 08:27-0400 Systolic blood pressure 143 mm[Hg] DO Shailesh Ball Work Phone: [facility] 09-30-2021 13:30-0400 Body height 170.18 cm Tamar Perea Other [facility] Other 09-30-2021 13:30-0400 Body mass index (BMI) [Ratio] 24.27 kg/m2 Tamar Perea Other [facility] Other 09-30-2021 13:30-0400 Body temperature 97.4 [degF] Tamar Martinezjerardosb Other [facility] Other 09-30-2021 13:30-0400 Body weight 70.31 kg Tamar Perea Other [facility] Other 09-30-2021 13:30-0400 Diastolic blood pressure 70 mm[Hg] Tamar Martinezjerardosb Other [facility] Other 09-30-2021 13:30-0400 SaO2% (BldA) [Mass fraction] 98 % Tamar Perea Other [facility] Other 09-30-2021 13:30-0400 Systolic blood pressure 140 mm[Hg] Tamar Perea Other [facility] Other 09-15-2021 11:00-0400 Body height 170.18 cm Tamar Perea Other [facility] Other 09-15-2021 11:00-0400 Body mass index (BMI) [Ratio] 24.27 kg/m2 Tamar Perea Other [facility] Other 09-15-2021 11:00-0400 Body temperature 96.4 [degF] Tamar Martinezjerardosb Other [facility] Other 09-15-2021 11:00-0400 Body weight 70.31 kg Tamar Perea Other [facility] Other 09-15-2021 11:00-0400 Diastolic blood pressure 72 mm[Hg] Tamar Martinezjerardosb Other [facility] Other 09-15-2021 11:00-0400 SaO2% (BldA) [Mass fraction] 98 % Tamar Martinezjerardosb Other [facility] Other 09-15-2021 11:00-0400 Systolic blood pressure 138 mm[Hg] Tamar Martinezmoy Other [facility] Other 07-28-2021 10:45-0400 Body height 170.18 cm Raul Quan Other [facility] Other 07-28-2021 10:45-0400 Body mass index (BMI) [Ratio] 24.27 kg/m2 Raul Lawrencemary ann Other [facility] Other 07-28-2021 10:45-0400 Body temperature 96.6 [degF] Raul Quan Other [facility] Other 07-28-2021 10:45-0400 Body weight 70.31 kg Raul Quan Other [facility] Other 07-28-2021 10:45-0400 Diastolic blood pressure 78 mm[Hg] Raul Lawrencemary ann Other [facility] Other 07-28-2021 10:45-0400 SaO2% (BldA) [Mass fraction] 98 % Raul Dovernakul Other [facility] Other 07-28-2021 10:45-0400 Systolic blood pressure 190 mm[Hg] Raul Lawrencemary ann Other [facility] Other Encounters Encounter Date Encounter Type Care Provider Facility Start: 08-31-2024 ambulatory MARIANO DOOLEY [facility] Start: 08-31-2024 End: 08-31-2024 ambulatory HARIKA LIRIANO [facility] Start: 08-15-2024 End: 08-15-2024 ambulatory JEZ CERDA [facility] Start: 08-14-2024 End: 08-14-2024 ambulatory [facility] Work Phone: Start: 08-14-2024 End: 08-14-2024 Patient encounter procedure [facility] [facility] Work Phone: Start: 08-10-2024 End: 08-10-[address] [facility] Start: 08-10-2024 End: 08-10-[address] [facility] Start: 08-07-2024 Non-patient / Non-visit [facility] Work Phone: Start: 08-04-2024 Evaluation and management of inpatient ARTEMIO WALDROP [facility] Start: 08-03-2024 Evaluation and management of inpatient SAMMIE SHAYNA [facility] Start: 08-02-2024 Evaluation and management of inpatient PILY OSPINA [facility] Start: 08-02-2024 Evaluation and management of inpatient CHRIS CHAVEZ [facility] Start: 08-02-2024 Evaluation and management of inpatient ESTUARDO [facility] Start: 08-02-2024 Evaluation and management of inpatient HAILE BLAIR [facility] Start: 08-01-2024 Evaluation and management of inpatient [facility] Start: 08-01-2024 End: 08-06-2024 Evaluation and management of inpatient LAZARA CARDOSO [facility] Start: 08-01-2024 End: 08-01-[address] [facility] Start: 07-28-2024 ambulatory JEZ CERDA [facility] Start: 07-18-2024 Non-patient / Non-visit [facility] Work Phone: Start: 07-12-2024 End: 07-12-2024 ambulatory [facility] Work Phone: Start: 07-12-2024 End: 07-12-2024 Patient encounter procedure [facility] Work Phone: Start: 07-10-2024 End: 07-10-[address] [facility] Start: 07-03-2024 Non-patient / Non-visit [facility] Work Phone: Start: 06-29-2024 Evaluation and management of inpatient LEVY ALVARADO ROMAN [facility] Start: 06-29-2024 Evaluation and management of inpatient KEATONMAISHA ROBLEDO [facility] Start: 06-27-2024 Evaluation and management of inpatient HELEN MATHEWS [facility] Start: 06-27-2024 [facility]: [facility] 06-27-[facility]24 End: 06-30-2024 Evaluation and management of inpatient LEVY CHILDERS [facility] Start: 06-21-2024 Non-patient / Non-visit [facility] Work Phone: Start: 06-19-2024 ambulatory JEZ [facility] Start: 06-06-2024 End: 06-06-[address] [facility] Start: 05-30-2024 End: 05-30-[address] [facility] Start: 05-30-2024 End: 05-30-[address] [facility] Start: 05-25-2024 Non-patient / Non-visit [facility] Work Phone: Start: 05-23-2024 ambulatory [facility] Start: 05-03-2024 End: 05-04-[address] [facility] Start: 04-26-2024 End: 04-26-2024 ambulatory [facility] Start: 04-19-2024 End: 04-19-2024 ambulatory [facility] Start: 04-18-2024 [facility]: 04-12-2024 End: 04-12-2024 ambulatory [facility] Start: 03-21-2024 End: 03-21-2024 ambulatory [facility] Start: 01-19-2024 End: 01-19-2024 ambulatory AMBER BRYANT [facility] Start: 01-18-2024 End: 01-18-2024 ambulatory [facility] Start: 01-11-2024 End: 01-11-2024 ambulatory DO Shailesh Ball Work Phone: [facility] Work Phone: Start: 01-11-2024 End: 01-11-2024 Patient encounter procedure DO Shailesh Ball Work Phone: [facility] Vascular Surgery Work Phone: Start: 12-22-2023 End: 12-22-2023 ambulatory DO Shailesh Ball Work Phone: [facility] Work Phone: Start: 12-22-2023 End: 12-22-2023 Patient encounter procedure DO Shailesh Ball Work Phone: [facility] Work Phone: Start: 12-17-2023 Non-patient / Non-visit DO Ryder yanna Ball Work Phone[facility] Work Phone: Start: 11-23-2023 Patient encounter procedure DO Shailesh Ball Work Phone: [facility] Start: 11-23-2023 End: 11-23-2023 ambulatory DO Shailesh Ball Work Phone: [facility] Work Phone: Start: 11-23-2023 End: 11-23-2023 Patient encounter procedure DO Shailesh Ball Work Phone: [facility] Work Phone: Start: 11-15-2023 End: 11-15-2023 ambulatory DO Shailesh Ball Work Phone: [facility] Work Phone: Start: 11-15-2023 End: 11-15-2023 Patient encounter procedure DO Shailesh Ball Work Phone: [facility] Vascular Surgery Work Phone: Start: 11-09-2023 Non-patient / Non-visit DO Ryder yanna Ball Work Phone: [facility] Work Phone: Start: 10-27-2023 End: 10-27-2023 ambulatory AMBER Melgoza [facility] Start: 10-26-2023 Non-patient / Non-visit DO Ryder yanna Ball Work Phone: [facility] Work Phone: Start: 10-21-2023 End: 10-21-2023 ambulatory DO Shailesh Ball Work Phone: [facility] Work Phone: Start: 10-21-2023 End: 10-21-2023 Patient encounter procedure DO Shailesh Ball Work Phone: [facility] Work Phone: Start: 10-18-2023 Non-patient / Non-visit DO Ryder yanan Ball Work Phone: [facility] Work Phone: Start: 10-17-2023 Non-patient / Non-visit DO Ryder yanna Ball Work Phone: [facility] Work Phone: Start: 10-16-2023 End: 10-17-2023 Non-patient / Non-visit DO Shailesh Ball Work Phone: [facility] Work Phone: Start: 10-16-2023 Non-patient / Non-visit DO Ryder yanna Ball Work Phone: [facility] Work Phone: Start: 10-15-2023 End: 10-17-2023 Non-patient / Non-visit DO Shailesh Ball Work Phone: [facility] Work Phone: Start: 10-14-2023 End: 10-17-2023 Non-patient / Non-visit DO Shailesh Ball Work Phone: [facility] Work Phone: Start: 10-14-2023 Non-patient / Non-visit DO Ryder yanna Ball Work Phone: [facility] Work Phone: Start: 10-12-2023 End: 10-13-2023 Evaluation and management of inpatient [facility] Start: 10-06-2023 End: 10-06-2023 ambulatory [facility] Start: 10-06-2023 End: 10-06-2023 ambulatory [facility] Start: 09-17-2023 [facility] Start: 09-03-2023 End: 09-03-2023 ambulatory DO Shailesh Ball Work Phone: [facility] Work Phone: Start: 09-03-2023 End: 09-03-2023 Patient encounter procedure DO Shailesh Ball Work Phone: [facility] Work Phone: Start: 08-31-2023 End: 08-31-2023 Patient encounter procedure DO Shailesh Ball Work Phone: [facility]Electrodiagnostics Work Phone: Start: 08-31-2023 End: 08-31-2023 ambulatory DO Shailesh Ball Work Phone: [facility] Work Phone: Start: 08-27-2023 End: 08-27-2023 ambulatory DO Shailesh Ball Work Phone: [facility] Work Phone: Start: 08-27-2023 End: 08-27-2023 Patient encounter procedure DO Shailesh Ball Work Phone: [facility] Work Phone: Start: 08-19-2023 End: 08-19-2023 ambulatory DO Shailesh Ball Work Phone: [facility] Work Phone: Start: 08-19-2023 End: 08-19-2023 Patient encounter procedure DO Shailesh Ball Work Phone: [facility] Cardiology Work Phone: Start: 07-27-2023 End: 07-27-2023 ambulatory JEZ CORREA Not Available Start: 07-05-2023 End: 07-05-2023 ambulatory DO Shailesh Ball Work Phone: [facility] Work Phone: Start: 07-05-2023 End: 07-05-2023 Patient encounter procedure DO Shailesh Ball Work Phone: [facility] Vascular Surgery Work Phone: Start: 06-22-2023 End: 06-22-2023 ambulatory DO Shailesh Ball Work Phone: [facility] Work Phone: Start: 06-22-2023 End: 06-22-2023 Patient encounter procedure DO Shailesh Ball Work Phone: [facility] Work Phone: Start: 06-16-2023 End: 06-16-2023 Patient encounter procedure DO Shailesh Ball Work Phone: [facility] [place] Work Phone: Start: 06-16-2023 End: 06-16-2023 ambulatory DO Shailesh Dunham Work Phone: [facility] Work Phone: Start: 05-04-2023 End: 05-05-2023 ambulatory Ivelisse Hassan Facility:[facility] Start: 05-04-2023 End: 05-04-2023 Lab Drop off Ivelisse Hassan [facility] Start: 05-04-2023 End: 05-04-2023 Patient encounter procedure Ivelisse Hassan [facility] Start: 04-28-2023 End: 04-29-2023 ambulatory Ivelisse Hassan Facility::[id number] Start: 04-26-2023 Non-patient / Non-visit DO Ryder Dunham Work Phone: [facility] Work Phone: Start: 04-20-2023 Non-patient / Non-visit DO Ryder Dunham Work Phone: [facility] Work Phone: Start: 04-20-2023 Non-patient / Non-visit DO Ryder Dunham Work Phone: [facility] Work Phone: Start: 04-14-2023 End: 04-14-2023 ambulatory Shailesh Dunham Other [employer] Other Start: 04-14-2023 Encounter for other preprocedural examination Shailesh [facility] Start: 04-14-2023 Office outpatient vi sit 15 minutes Shailesh [place] Start: 04-08-2023 End: 04-08-2023 ambulatory Shailesh Dunham Other [employer] Other Start: 04-08-2023 Telephone encounter [facility] Start: 04-05-2023 End: 04-05-2023 ambulatory Shailesh Dunham Other [employer] Other Start: 04-05-2023 Telephone encounter [facility]ailesh [facility] Start: 04-04-2023 End: 04-04-2023 ambulatory Raul Stanislawchantellmary ann Other [employer] Other Start: 04-04-2023 Telephone encounter Raul Quan [facility] Start: 03-29-2023 End: 03-29-2023 ambulatory Shailesh Dunham Other [employer] Other Start: 03-29-2023 Transitional care ellen sarkar [facility] 14 day discharge Shailesh Dunham [facility] Start: 03-29-2023 End: 03-29-2023 Patient encounter procedure DO Shailesh Dunham Work Phone: [facility]- Start: 03-25-2023 End: 03-25-2023 ambulatory Raul Melindamary ann Other [employer] Other Start: 03-25-2023 Telephone encounter Raul Quan [facility] Start: 03-24-2023 End: 03-25-2023 ambulatory Ivelisse Hassan Facility:CD:[id number] Start: 01-13-2023 End: 01-14-2023 ambulatory Ivelisse Hassan Facility:[facility] Start: 01-13-2023 End: 01-13-2023 Patient encounter procedure Ivelisse Hassan [facility] Start: 11-10-2022 Office outpatient vi sit 25 minutes Raul Quan [facility] Start: 11-10-2022 End: 11-10-2022 ambulatory DO Shailesh Dunham Work Phone: [employer] Other Start: 11-10-2022 End: 11-10-2022 Patient encounter procedure DO Shailesh Dunham Work Phone: [facility]Ultrasound [facility] Start: 10-07-2022 End: 10-08-2022 ambulatory Ivelisse Hassan Facility:[facility] Start: 10-07-2022 End: 10-07-2022 Patient encounter procedure Ivelisse Hassan [facility] Start: 08-04-2022 End: 08-04-2022 ambulatory Raul Buchantellmary ann Other [employer] Other Start: 08-04-2022 Postop follow up vis it related to original px Raul Quan [facility] Start: 07-28-2022 End: 07-29-2022 ambulatory Ivelisse Hassan Facility:[facility] Start: 07-14-2022 ambulatory Ivelisse Hassan Facility:C [id number] Start: 07-09-2022 End: 07-09-2022 ambulatory Shailesh Dunham Other [employer] Other Start: 07-09-2022 Telephone encounter Shailesh Dunham [facility] Start: 07-08-2022 End: 07-08-2022 ambulatory Shailesh Dunham Other [employer] Other Start: 07-08-2022 Telephone encounter Shailesh Ball [facility] Start: 07-08-2022 End: 07-09-2022 Evaluation and management of inpatient DO Shailesh Ball Work Phone: [facility] [place] [facility] Work Phone: Start: 07-01-2022 End: 07-01-2022 ambulatory DO Shailesh Ball Work Phone: [facility] Work Phone: Start: 07-01-2022 End: 07-01-2022 Patient encounter procedure DO Shailesh Dunham Work Phone: [facility]-Pre-Surgical Testing Work Phone: Start: 06-24-2022 End: 06-25-2022 ambulatory Ivelisse Hassan Facility:[facility] Start: 06-24-2022 End: 06-24-2022 Patient encounter procedure Ivelisse PorrasSilvestre Mo [facility] Start: 05-21-2022 End: 05-21-2022 ambulatory Shailesh Dunham Other [employer] Other Start: 05-21-2022 Patient encounter procedure Shailesh Dunham [facility] Start: 05-19-2022 End: 05-19-2022 ambulatory Tamar Perea Other [employer] Other Start: 05-19-2022 Follow-up encounter Tamar [facility] Start: 05-13-2022 End: 05-13-2022 ambulatory Raul Quan Other [employer] Other Start: 05-13-2022 Telephone encounter Raul Quan [facility] Start: 05-11-2022 End: 05-11-2022 ambulatory DO Shailesh Dunham Work Phone: [facility] Work Phone: Start: 05-11-2022 End: 05-11-2022 Patient encounter procedure DO Shailesh Dunham Work Phone: [facility] [place] Work Phone: Start: 04-23-2022 End: 04-23-2022 ambulatory Raul Quan Other [employer] Other Start: 04-23-2022 Telephone encounter Raul Quan [facility] Vascular Surgery Start: 04-15-2022 End: 04-15-2022 Lab Drop off Ivelisse Hassan [facility] Start: 04-15-2022 End: 04-15-2022 Patient encounter procedure Ivelisse Hassan [facility] Start: 04-14-2022 End: 04-14-2022 ambulatory Shailesh Dunham Other [employer] Other Start: 04-14-2022 Telephone encounter Shailesh Dunham [facility] Start: 03-10-2022 End: 03-10-2022 ambulatory Raul Quan Other [employer] Other Start: 03-10-2022 Office outpatient vi sit 25 minutes Raul Quan [facility] Vascular Surgery Start: 02-25-2022 End: 02-25-2022 Patient encounter procedure ADALGISA ANTOINE [facility] Start: 02-18-2022 End: 02-18-2022 Patient encounter procedure ADALGISA ANTOINE [facility] Start: 02-11-2022 End: 02-11-2022 Lab Drop off Ivelisse ChiquitaSilvestre Hassan [facility] Start: 02-11-2022 End: 02-11-2022 Patient encounter procedure Ivelisse Hassan [facility] Start: 02-10-2022 End: 02-11-2022 ambulatory IVELISSE HASSAN . Facility:[facility] Start: 02-07-2022 Encounter for other preprocedural examination DR RAUL QUAN [facility] Start: 02-07-2022 Encounter for preprocedural laboratory examination DR RAUL QUAN [facility] Start: 02-04-2022 End: 02-05-2022 Evaluation and management of inpatient DO Shailesh Dunham Work Phone: [facility] Start: 02-02-2022 End: 02-03-[address] RAUL QUAN Facility:[facility] Start: 02-02-2022 End: 02-03-2022 Encounter for other preprocedural examination DR RAUL QUAN Facility:[facility] Start: 01-20-2022 Office outpatient vi sit 25 minutes Raul Quan [facility] Vascular Surgery Start: 01-20-2022 End: 01-20-2022 ambulatory DO Shailesh Dunham Work Phone: [employer] Other Start: 01-20-2022 End: 01-20-2022 Patient encounter procedure DO Shailesh Dunham Work Phone: [facility]-Ultrasound [facility] Start: 01-05-2022 End: 01-05-2022 ambulatory Raul uQan Other [employer] Other Start: 01-05-2022 Office outpatient vi sit 25 minutes Raul Quan [facility] Vascular Surgery Start: 12-08-2021 End: 12-09-[address] SHAILESH DUNHAM Facility:[facility] Start: 12-02-2021 End: 12-02-[address] SHAILESH DUNHAM Facility:[facility] Start: 11-24-2021 End: 11-24-2021 ambulatory Tamar Perea Other [employer] Other Start: 11-24-2021 Patient encounter procedure Tamar Perea [facility] Vascular Surgery Start: 11-11-2021 End: 11-11-[address] SHAILESH DUNHAM Facility:[facility] Start: 10-26-2021 End: 10-26-[address] SHAILESH DUNHAM Facility:[facility] Start: 10-21-2021 Patient encounter procedure Shailesh Dunham Work Phone: [facility] [address] [place] Work Phone: Start: 10-16-2021 Telephone encounter Judah Vivas MD Work Phone: [facility] [address] DO Work Phone: Start: 10-15-2021 End: 10-15-2021 Evaluation and management of inpatient DO Shailesh Dunham Work Phone: [facility] [place] [facility] Start: 10-13-2021 End: 10-13-2021 Patient encounter procedure DO Shailesh Dunham Work Phone: [facility]-Pre-Surgical Testing Start: 10-06-2021 End: 10-06-2021 Patient encounter procedure DO Shailesh Dunham Work Phone: [facility]-Pre-Surgical Testing Start: 09-30-2021 End: 09-30-2021 ambulatory Tamar Perea Other [employer] Other Start: 09-30-2021 Encounter for other preprocedural examination Tamar Perea [facility] Vascular Surgery Start: 09-30-2021 Follow-up encounter Tamar [facility] Start: 09-22-2021 End: 09-23-[address] SHAILESH DUNHAM Facility:[facility] Start: 09-18-2021 End: 09-18-2021 Patient encounter procedure DO Shailesh Dunham Work Phone: [facility] [place] Start: 09-15-2021 End: 09-15-2021 ambulatory Tamar Perea Other [employer] Other Start: 09-15-2021 Follow-up encounter Tamar [facility] Start: 08-27-2021 End: 08-27-2021 Patient encounter procedure DO Shailesh Dunham Work Phone: [facility]-Ultrasound [facility] Start: 08-12-2021 End: 08-13-[address] NONE LISTED REQUEST Facility: Start: 07-28-2021 End: 07-28-2021 ambulatory Raul Quan [facility] Other Start: 07-28-2021 Office outpatient ne w 45 minutes Raul Quan [facility] Vascular Surgery Start: 06-13-2020 End: 06-13-2020 Patient encounter procedure Lisandra Sher Work Phone: [facility] Work Phone: Patient encounter status Judah Harrington MD Work Phone: -[facility] [address] DO Work Phone: Procedures Date Procedure Procedure Detail Performing Clinician Start: 08-31-2024 Follow-up visit MARIANO DOOLEY Start: 07-10-2024 Follow-up visit MARIANO DOOLEY Start: 05-03-2024 Follow-up visit MARIANO DOOLEY Start: 04-19-2024 Follow-up visit MARIANO DOOLEY Start: 03-21-2024 Follow-up visit MARIANO DOOLEY Start: 01-19-2024 Follow-up visit Follow-up AMBER BRYANT Start: 01-18-2024 Follow-up visit MARIANO DOOLEY Start: 01-11-2024 US scan of aorta DO [employer] Work Phone: Start: 12-17-2023 E coli Shiga Toxin EIA DO [employer] Work Phone: Start: 12-17-2023 Salmonella/Shigella Screen DO [employer] Work Phone: Start: 11-15-2023 Doppler ultrasonography of bilateral carotid arteries DO [employer] Work Phone: Start: 10-27-2023 Follow-up visit MARIANO DOOLEY Start: 10-06-2023 Follow-up visit MARIANO DOOLEY Start: 06-16-2023 Computed tomography of abdomen and pelvis with contrast DO Shailesh Dunham Work Phone: Start: 05-04-2023 Cystoscopic removal of ureteric stent Ivelisse Hassan Start: 04-28-2023 Cystoscopic insertion of ureteric stent Ivelisse Hassan Start: 11-10-2022 Doppler ultrasonography of bilateral carotid arteries DO Shailesh Dunham [employer] Phone: Start: 07-28-2022 Cystourethroscopy with dilation of urethral stricture Ivelisse Hassan Start: 07-08-2022 Insertion of carotid artery stent DO Ryder Dunham Work Phone: Start: 05-11-2022 Computed tomography angiography of abdominal and/or pelvic blood vessel DO Shailesh [employer] Phone: Start: 05-11-2022 CT angiography of head DO Shailesh [employer] Phone: Start: 05-11-2022 CT angiography of neck vessels DO Josué fischer [employer] Work Phone: Start: 02-10-2022 PSA screening IVELISSE HASSAN . Comment on above: Performed By: #### DATA1C #### [facility] [address] [place] [address] Dr. Jodi Roman Start: 02-05-2022 Repair of aortic aneurysm using bifurcation graft Ivelisse Hassan Start: 02-04-2022 Endovascular repair of abdominal aortic aneurysm DO Shailesh [employer] Work Phone: Start: 01-20-2022 Doppler ultrasonography of bilateral carotid arteries DO [employer] Phone: Start: 09-18-2021 Computed tomography angiography of abdominal and/or pelvic blood vessel DO [employer] Phone: Start: 08-27-2021 US scan of aorta DO Shailesh [employer] Phone: Start: 08-27-2021 Doppler ultrasonography of bilateral carotid arteries DO [employer] Phone: Start: 06-13-2020 Imm. administration COVID19 [employer] Lisandra [employer] Work Phone: Start: 06-13-2020 SARS-CoV-2 vaccine, 0.5ml [employer] Lisandra Sher Work Phone: Start: 10-18-2019 Transurethral prostatectomy Ivelisse Hymane Start: 04-06-2019 Cystoscope, device (physical object) Ivelisse Lue Start: 10-06-2016 Colonoscopy Ivelisse Lue Comment on above: 2010 Arthroscopy of knee Ivelisse Yenni e Catheterization of left heart Ivelisse Lue Esophagogastroduodenoscopy K athy Lue Plan of Treatment Date Care Activity Detail Author Start: 09-01-2023 ambulatory Ambulatory Facility:[facility] Start: 08-19-2023 [facility] Start: 07-09-2022 [facility] Start: 07-08-2022 Hospital admission [facility] Start: 07-08-2022 Patient referral to dietitian [facility] Start: 02-05-2022 [facility] Start: 02-04-2022 [facility] Start: 02-04-2022 Hospital admission [facility] Start: 10-21-2021 STRESS NUC, Provider: SAL ARREDONDOI NUCLEAR 01,[id number], Status: Pen, Time: 7:30 AM STRESS NUC, Provider: SAL HHVI NUCLEAR 01,[id number], Status: Pen, Time: 7:30 AM [facility] [address] DO Work Phone: Start: 10-15-2021 [facility] Work Phone: Start: 10-15-2021 OR Percutaneous EVAR AAA (Not Applicable) OR Percutaneous EVAR AAA (Not Applicable) [facility] Start: 10-15-2021 End: 10-15-2021 Evaluation and management of inpatient AAA (abdominal aortic aneurysm) [facility]-[address] [place] [address] Surgical Start: 10-13-2021 End: 10-13-2021 Patient encounter procedure Departed Clinical [facility]vc-[facility] Testing Comprehensive metabo lic 1999 panel - Serum or Plasma [facility] Comprehensive metabo lic 1999 panel - Serum or Plasma [facility] Holter monitor study [facility] Patient Education [facility] Work Phone: Patient referral [facility] Work Phone: US Gallbladder [facility] Heart limited [facility] Heart Transthoracic [facility] Heart Transthoracic [facility] Thoracic and abdo sebastian aorta [facility] Thoracic and abdo sebastian aorta [facility] US Thoracic and abdo sebastian aorta [facility] US.doppler Carotid arteries - bilateral [facility] US.doppler Carotid arteries - bilateral [facility] US.doppler Carotid arteries - bilateral [facility] Immunizations Immunization Date Immunization Notes Care Provider David holloway 06-13-2020 [employer] COVID 19 Vaccine [facility] Comment on above: Note: Patient tolera shyann well. No signs or symptoms of adverse reactions. Patient waited a minimum of 15 minutes. NEGATED: Highlighted row has not occurred!01-13-2023 influenza virus vaccine, unspecified formulation Ivelisse Hassan [facility] Payers Date Payer Category Payer Self-pay [id number] 2020 Unknown [id number] 1959 Self-pay [id number] 1959 Unknown [id number] [id number] 1959 Unknown [id number] 1959 Unknown [id number] 1942 Unknown [id number] 2.16.84 0.1.960594.3.579.2.593 1942 Unknown [id number] 2.16.84 0.1.458980.3.579.2.593 1942 Unknown [id number] 2.16.84 0.1.635727.3.579.2.593 1942 Unknown [id number] 2.16.84 0.1.117269.3.579.2.593 1942 Unknown [id number] 2.16.84 0.1.718975.3.579.2.593 1942 Unknown [id number] 2.16.84 0.1.409291.3.579.2.593 1942 Unknown [id number] 2.16.84 0.1.550129.3.579.2.593 1942 Unknown [id number] 2.16.8 40.1.622183.3.579.2.727 1942 Unknown [id number] 2.16.8 40.1.696492.3.579.2.727 1942 Unknown [id number] 2.16.8 40.1.516038.3.579.2.727 1942 Unknown [id number] 2.16.8 40.1.236601.3.579.2.727 1942 Unknown [id number] 2.16.8 40.1.405411.3.579.2.727 1942 Unknown [id number] 2.16.8 40.1.741941.3.579.2.727 1942 Unknown [id number] 2.16.8 40.1.637997.3.579.2.727 1942 Unknown [id number] 2.16.8 40.1.999976.3.579.2.727 1942 Unknown [id number] 2.16.8 40.1.124327.3.579.2.727 1942 Unknown [id number] 2.16.84 0.1.341022.3.579.2.1259 Unknown Unknown [facility] [id number] Unknown [id number] 2.16.84 0.1.637503.3.579.2.593 Unknown [id number] 2.16.8 40.1.844191.3.579.2.531 Unknown [id number] 2.16.8 40.1.104435.3.579.2.531 Unknown [id number] 2.16.8 40.1.416577.3.579.2.531 Unknown [id number] 2.16.8 40.1.426448.3.579.2.531 Unknown [id number] 2.16.8 40.1.438212.3.579.2.531 Social History Date Type Detail Facility Tobacco smoking status Unknown i f ever smoked [facility] Work Phone: Start: 03-08-1955 End: 03-08-1996 Sex Assigned At [facility] Start: 10-15-2021 End: 08-19-2023 Tobacco smoking status NHIS Ex-smoker (finding) [facility] Start: 1940 Sex Assigned At Male F [facility] Tobacco smoking status Never [facility] Start: 07-12-2024 End: 08-14-2024 Sex Male (finding) [facility] Medical Equipment Procedure Code Equipment Code Equipment Origin al Text Equipment Identifier Dates Transcarotid artery revascularization (TCAR) Bare-metal carotid artery stent ()[id number] FDA Start: 07-08-2022 Transcarotid artery revascularization (TCAR) Bare-metal carotid artery stent ()[id number] FDA Start: 07-08-2022 Percutaneous endovascular repair of abdominal aortic aneurysm (AAA) Abdominal aorta endovascular stent-graft ()[id number]) [id number] FDA Start: 02-04-2022 Percutaneous endovascular repair of abdominal aortic aneurysm (AAA) Abdominal aorta endovascular stent-graft ()[id number]) [id number] FDA Start: 02-04-2022 Percutaneous endovascular repair of abdominal aortic aneurysm (AAA) Abdominal aorta endovascular stent-graft ()[id number]) [id number] FDA Start: 02-04-2022 Goals Date Patient Goal Desired Activity /State Functional Status Date Assessment Result Facility 05-04-2023 Functional Status N/A [facility] 01-13-2023 Functional Status N/A [facility] 10-07-2022 Functional Status N/A [facility] 07-09-2022 Functional status Patient is Pro gressing Toward Baseline [facility] Work Phone: 06-24-2022 Functional Status N/A [facility] 04-15-2022 Functional Status N/A [facility] 02-25-2022 Functional Status N/A [facility] 02-18-2022 Functional Status N/A [facility] 02-11-2022 Functional Status N/A [facility] 02-05-2022 Functional status Patient at Baseline [facility] Work Phone: 10-15-2021 Functional status Patient at Baseline [facility] Work Phone: Mental Status Date Assessment Result Facility 07-09-2022 Cognitive function Cognitive Sta tus Patient is Progressing Toward Baseline [facility] Work Phone: 02-05-2022 Cognitive function Cognitive Sta tus Patient at Baseline [facility] Work Phone: 10-15-2021 Cognitive function Cognitive Sta tus Patient at Baseline [facility] Work Phone: Clinical Notes 04-18-2020 to 09-01-2024 Note Date & Type Note Facility 09-01-2024 Note EKG sinus rhythm with frequent P ACs [facility] 08-31-2024 Note [facility] 08-31-2024 Note medical technician requested EKG to be ordered for noted irregular rhythm during echo Harika Liriano [facility] Cardiology Available 7a-3pm via eTec [phone] [facility] 08-15-2024 Note [facility] 08-10-2024 Note [facility] 08-10-2024 Note [facility] 08-06-2024 Note [facility] 08-06-2024 Note [facility] 08-05-2024 Note [facility] 08-05-2024 Note Continue pravastatin [facility] 08-05-2024 Note S/p PCI mid LAD, OM1 , balloon angioplasty of OM 2 Continue Plavix [facility] 08-05-2024 Note S/p EVAR January 2022 [facility] 08-05-2024 Note Continue daily MiraLAX [facility] 08-05-2024 Note Rate controlled Continue Eliquis 2.5 mg twice a day [facility] 08-05-2024 Note S/p TAVR 08/01 [facility] 08-05-2024 Note Blood and urine cult ures pending Leukocytosis Resolved. Monitor for any ongoing fever. [facility] 08-05-2024 Note Urinalysis positive for UTI Urine culture pending Treat empirically with ceftriaxone [facility] 08-05-2024 Note X-ray done showed ch ronic granulomatous infiltrates. Patient denies any cough/shortness of breath [facility] 08-05-2024 Note [facility] 08-05-2024 Note [facility] 08-04-2024 Note [facility] 08-04-2024 Note [facility] 08-04-2024 Note [facility] 08-04-2024 Note S/p PCI mid LAD, OM1 , balloon angioplasty of OM 2 Continue Plavix [facility] 08-04-2024 Note S/p TAVR 08/01 [facility] 08-04-2024 Note S/p EVAR January 2022 [facility] 08-04-2024 Note Urinalysis positive for UTI Urine culture pending Treat empirically with ceftriaxone [facility] 08-04-2024 Note Continue daily MiraLAX [facility] 08-04-2024 Note Rate controlled Resume Eliquis 2.5 mg twice a day [facility] 08-04-2024 Note Continue pravastatin [facility] 08-04-2024 Note X-ray done showed ch ronic granulomatous infiltrates. Patient denies any cough/shortness of breath [facility] 08-04-2024 Note Blood and urine cult ures pending Leukocytosis is improving. [facility] 08-04-2024 Note [facility] 08-04-2024 Note [facility] 08-03-2024 Note [facility] 08-03-2024 Note As above [facility] 08-03-2024 Note Diet statin [facility] 08-03-2024 Note As above Awaiting blood cultures and urine cultures will continue antibiotic for now [facility] 08-03-2024 Note [facility] 08-03-2024 Note Telemetry rate contr ol as infiltrate above Eliquis to be resumed once hematoma stabilized [facility] 08-03-2024 Note [facility] 08-03-2024 Note [facility] 08-03-2024 Note [facility] 08-03-2024 Note [facility] 08-03-2024 Note [facility] 08-02-2024 Note [facility] 08-02-2024 Note [facility] 08-01-2024 Note [facility] 08-01-2024 Note [facility] 07-12-2024 Evaluation note Diagnosis Onset Date Resolution AAA (abdominal aortic aneurysm) without rupture acute July 3:00pm ASHD (arteriosclerotic heart disease) acute July 12, 2024 3:00pm Atrial fibrillation acute July 122024 3:00pm Carotid stenosis, bilateral acute July 12, 2024 3:00pm Chronic heart failure with preserved ejection fraction (HFpEF) acute July 12, 2024 3:00pm Hypercholesterolemia acute July 12, 2024 3:00pm IFG (impaired fasting glucose) acute July 12, 2024 3:00pm Nonrheumatic aortic (valve) stenosis acute July 12, 2024 3:00pm NSVT (nonsustained ventricular tachycardia) acute July 3:00pm Primary hypertension acute July 12, 2024 3:00pm AAA (abdominal aortic aneurysm) without rupture acute August 142024 11:39am Anemia acute August 14, 2024 11:39am ASHD (arteriosclerotic heart disease) acute August 14, 2024 11:39am Atrial fibrillation acute August 14, 2024 11:39am Carotid stenosis, bilateral acute August 14, 2024 11:39am Chronic heart failure with preserved ejection fraction (HFpEF) acute August 14, 2024 11:39am Hypercholesterolemia acute August 14, 2024 11:39am IFG (impaired fasting glucose) acute August 14, 2024 11:39am Nonrheumatic aortic (valve) stenosis acute August 14, 2024 11:39am NSVT (nonsustained ventricular tachycardia) acute August 11:39am Primary hypertension acute August 14, 2024 11:39am S/P TAVR (transcatheter aortic valve replacement) Jul, 2024 acute August 142024 11:39am [facility] Work Phone: [phone]) 319-284905-05-20[facility] Note- Patient with recent cholecystectomy and partial liver resection, [facility]-29-[facility] Note- [facility] [place] Note- Loop recorder in place - Holding eliquis per pulmonology recommendation. Plan is to hold for 1 week [facility]04-24-2025 Note- S/p [facility]Un[facility]04-24-2025 Note- Patient with severe aortic valve stenosis with plan for future [facility]-24-[facility]25 Note- Status post [facility]ing[facility]04-[facility]-2025 Note-Results of cardiac cath as noted in H&P -TAVR will be scheduled for a later date[facility] 06-29-2024 [facility]04-24-2025 [facility] 06-28-2024 Note- Status post stentingUnBelle[facility] 06-28-2024 Note- Loop recorder in place - Holding eliquis per pulmonology recommendationUnBellevue Hospital04-23-2025 Note- Patient with severe aortic valve stenosis with plan for future TAVRUniversSelect Medical [facility] [place]-23-20[facility] Note- Patient with recent cholecystectomy and partial liver resection, continue outpatient follow-up with the [facility] 06-28-2024 Note- Continue home medsUniMer[facility]04-23-2025 Note- S/p EVARUnBellevue Hospital04-23-2025 [facility]04-[facility]-2025 [facility] 06-28-2024 [facility]04-23-2025 [facility]04-23-2025 NoteChart reviewed assessment and plan reviewed with nurse practitioner and agreedMary [facility]04-22-2025 [facility]04-22-2025 Note- Status post stenting [facility]04-22-2025 Note- Loop recorder in place -Okay to continue Eliquis per cardiology team on 06/28/2024UnB[facility]04-22-2025 Note- Patient with severe aortic valve stenosis with plan for future TAVRUniversSelect Medical [facility] [place]04-22-2025 Note- Patient with recent cholecystectomy and partial liver resection, [facility] 06-27-2024 Note- Continue home medsUniMer[facility]04-22-2025 Note- S/p EVARUnBellevue Hospital02-26-2025 [facility]-12-2025 [facility] 04-18-2024 [facility]-11-2025 [facility]-11-2025 [facility] 04-12-2024 [facility]-14-2025 [facility]13[facility]2024 [facility] 01-18-2024 [facility]-2024 [facility]20[facility] 10-13-2023 [facility]-20[facility]-20[facility] 10-06-2023 [facility]24 Hospital Discharge instructions Patient Education 05/04/2023 11:46:04 [...] about 300 mg of calcium at each meal.Foods that contain 200 500 mg of calcium a serving include: ?8 oz (237 mL) of milk, vymjbxj-vtixsfzeossl-shbyn milk, and calcium- fortifiedfruit juice. Calcium-fortified means that calcium has been [...] the table and allow each person to addtheir own salt to taste. Use vegetable protein, such as beans, textured vegetable protein (TVP), or tofu, instead of meat inpasta, casseroles, and soups. Meal planning Eat less salt, if told by your dietitian. To do this: ?Avoid eating processed or pre-made food. ?Avoid eating fast food. Eat less animal protein, including cheese, meat, poultry, or fish, if told by your dietitian. To dothis: ?Limit the number of times you have meat, poultry, fish, or cheese each week. Eat a diet free of meat at least 2 days a week. ?Eat only one serving each day of meat, poultry, fish, or seafood. ?When you prepare animal proteins, cut pieces into small portion sizes. For most meat and fish, oneserving is about the size of the palm [...] ?Spinach (cooked), rhubarb, beets, sweet potatoes, and Lao chard. ?Peanuts. ?Potato chips, prydeinig fries, and baked potatoes with skin on. ?Nuts and nut products. ?Chocolate. If you regularly take a diuretic medicine, make sure to eat at least 1 or 2 servings of fruits or vegetables that are high in potassium each day. These include: ?Avocado. ?Banana. ?[place], prune, carrot, or tomato juice. ?Baked potato. [...] magnesium, fish oil, or vitamin B6. Take yzdu-mrh-mmavqqw and prescription medicines only as told by [...] based on the type of kidney stones youhave and your overall health. Fruits Grapefruit. The item listed above may not be a complete list of foods and beverages you should avoid. Contact adietitian for more information. Summary Kidney stones are [...] provider. Document Revised: 06/04/2022 Document Reviewed: 06/04/2022 [employer] Patient Education 2022 [employer]. Follow Up Care 04/29/2023 08:42:17 With:Mo LEIJA, AKILAH Smith, URO Address: When:Within 4 Month(s) Comments:w/KEADR [facility] Sal 02-07-2024 Evaluation note* Encounter Date Diagnosis Assessment Notes Treatment Notes Treatment Clinical Notes Apr, ASHD (arteriosclerot ic heart disease) (ICD-10 - I25.10) This patient [...] this time and surgery could be scheduled. [facility] Other 02-07-2024 Evaluation note* Encounter Date Diagnosis [...] control to proceed with his next procedure. [facility] Other 02-01-2024 Evaluation note* Encounter Date Diagnosis Assessment Notes Treatment Notes Treatment Clinical Notes Apr, Primary hypertension (ICD-10 - I10) [facility] Other 01-29-2024 Evaluation note* Encounter Date Diagnosis Assessment Notes Treatment Notes Treatment Clinical Notes Mar, Primary hypertension (ICD-10 - I10) [facility] Other 01-28-2024 Evaluation note* Encounter Date Diagnosis Assessment Notes Treatment Notes Treatment Clinical Notes Mar, Primary hypertension (ICD-10 - I10) [facility] Other 01-22-2024 Evaluation note* Encounter Date Diagnosis [...] has resolved INstructed on increasing fluids [facility] Other 11-08-2023 Hospital Discharge instructions Patient Education [...] urethra. Follow these instructions at home: Take hxns-fur-stclhat and prescription medicines only as told by [...] provider. Document Revised: 09/10/2021 Document Reviewed: 09/10/2021 [employer] Patient Education 2022 [employer]. Follow Up Care 10/07/2022 09:26:45 With:Mo LEIJA, AKILAH Smith, URO Address: When: Unknown [facility] 09-05-2023 Evaluation note* Encounter Date Diagnosis [...] in the office with a CT scan. [facility] Other 08-02-2023 Hospital Discharge instructions Patient Education [...] urethra. Follow these instructions at home: Take ffug-erf-qnjkuno and prescription medicines only as told by [...] provider. Document Revised: 09/10/2021 Document Reviewed: 09/10/2021 [employer] Patient Education 2022 [employer]. Follow Up Care 07/28/2022 10:29:31 With:Mo LEIJA, AKILAH Smith, URO Address: When:Within 3 Day(s) [facility] [place] 05-30-2023 Evaluation note* Encounter Date Diagnosis Assessment [...] a couple of weeks. These have resolved. [facility] Other 05-04-2023 Discharge summary Author Raul Quan [facility] July 09, 2022 12:08pm Note Date/Time July 09, 2022 8:07am [facility] [address] [place] [address] Discharge Summary Signed Patient: Chico Baker MR#: [id number] : 1940 Acct:[id number] Age/Sex: 82 / M Adm Date: 3 Loc: Room: [address] [place] [address]: Raul Quan MD Copies to: [...] midline, neck is supple, no JVD. Bilateral rn hospice strength is equal. He has a little [...] <Electronically signed by MD Raul Quan> 07/09/22 [address] [facility] Work Phone: 1(193) 248-574605-03-2023 History and physical note Author Raul Quan [facility] July 08, 2022 11:06am Note Date/Time July 08, 2022 11:06a m [facility] [address] [place] [address] Vascular Surgery H&P Signed Patient: Chico Baker MR#: [id number] : 1940 Acct:[id number] Age/Sex: 82 / M Adm Date: 3 Loc: Room: [address] [place] [address] Type: ADM IN Attending Dr: Raul Quan [...] signed by MD Raul Quan> 07/08/22 1106 [facility] Work Phone: 1(453) 539-303504-19-2023 Hospital Discharge instructions Patient Education 06/24/2022 09:42:41 [...] Follow these instructions at home: Medicines Take xvtu-jel-xxlpcbs and prescription medicines only as told by [...] or the blood stops without treatment. Take wtib-sxe-paeynhy and prescription medicines only as told by your health care provider. Drink enough fluid to keep your urine pale yellow. This information is not intended to replace advice given to you by your health care provider. Make sure you discuss any questions you have with your health care provider. Document Revised: 10/23/2020 Document Reviewed: 10/23/2020 [employer] Patient Education 2022 [employer]. 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 Walk daily Inspect feet daily for cuts [facility] Other 03-14-2023 Evaluation note* Encounter Date Diagnosis [...] appointment. We will submit his imaging to [facility] for review and planning for future TCAR. Patient has prescription for Plavix which we will start prior to his TCAR procedure as well. They verbalized understanding of all discussion today, agree with plan, and denies any questions. [facility] Other 03-08-2023 Evaluation note* Encounter Date Diagnosis Assessment Notes Treatment Notes Treatment Clinical Notes May, Carotid stenosis, bilateral (ICD-10 - I65.23) CTA: < 50% right, 80% left [facility] Other 03-08-2023 Evaluation note* Encounter Date Diagnosis Assessment Notes Treatment Notes Treatment Clinical Notes May, Carotid stenosis, bilateral (ICD-10 - I65.23) CTA: < 50% right, 70% left - 05/2022 [facility] Other 02-08-2023 Hospital Discharge instructions Patient Education [...] prostate. Follow these instructions at home: Take qsik-ssu-ijaajtl and prescription medicines only as told by [...] 02/19/2001 Document Revised: 05/07/2018 Document Reviewed: 11/12/2016 [employer] Patient Education 2020 [employer]. Follow Up Care 02/11/2022 10:55:52 With:Mo LEIJA, AKILAH Smith, URO Address: When: Unknown [facility] 02-07-2023 Evaluation note* Encounter Date Diagnosis Assessment Notes Treatment Notes Treatment Clinical Notes Apr, Primary hypertension (ICD-10 - I10) [facility] Other 01-03-2023 Evaluation note* Encounter Date Diagnosis [...] to perform simultaneously to minimize contrast exposure. [facility] Other 12-21-2022 Hospital Discharge instructions Patient Education 02/25/2022 12:02:33 Rash, Adult, Kvzj-li-Lvrh Rash, Adult A rash is a change [...] with your condition: Medicine Take or apply rfpa-umi-ruebynx and prescription medicines only as told by [...] the rash from spreading. Take or apply rhez-ead-gpgpzqa and prescription medicines only as told by [...] 08/10/2008 Document Revised: 06/16/2019 Document Reviewed: 09/26/2018 Elsevier Patient Education 2020 [employer] Inc. Follow Up Care 02/18/2022 14:33:21 With:Ivelisse Hassan Address:Unknown When: Unknown Comments:Appointment has already been scheduled [facility] [place] 12-14-2022 Hospital Discharge instructions Patient [...] including vitamins, herbs, eye drops, creams, and vmqb-sck-taugjyt medicines. Any problems you or family members [...] provider tells you to take them. Taking krff-xfg-zxvfpab medicines, vitamins, herbs, and supplements. Eating and [...] 02/22/2006 Document Revised: 06/14/2019 Document Reviewed: 11/23/2018 [employer] Patient Education 2020 [employer]. Follow Up Care 02/17/2022 16:33:06 With:ADALGISA ANTOINE PA-C, URL Address: [address] [place], [place] [address] [address] [phone] When:02/25/2022 [facility] 12-07-2022 Hospital Discharge instructions Patient Education [...] prostate. Follow these instructions at home: Take hwfz-kzx-jilmtel and prescription medicines only as told by [...] 02/19/2001 Document Revised: 05/07/2018 Document Reviewed: 11/12/2016 Else[employer] Patient Education 2020 [employer]. Follow Up Care 01/28/2021 10:15:04 With:Mo LEIJA, AKILAH Smith, URO Address: When:6 weeks [facility] 12-01-2022 Discharge summary Author Raul Buehrer [facility] February 05, 2022 10:08am Note Date/Time February 05, 2022 7 :52am [facility] [address] [place] [address] Discharge Summary Signed Patient: Chico Baker MR#: [id number] : 1940 Acct:[id number] Age/Sex: 81 / M Adm Date: 2 Loc: Room: [address] [place] [address]: Raul Quan MD Copies to: Shailesh Dunham,DO Tamar Perea, CORNER TRIMMER OPERATOR Raul Quan MD~ Providers Date of Discharge: [...] % (Auto) 69.5, Lymph % (Auto) 14.4, [place] % (Auto) 14.8, Eos % (Auto) 0.7, Baso % (Auto) 0.6, Nucleat RBC Rel Count 0.1, Neut # (Auto) 7.1, Lymph # (Auto) 1.5, [place] # (Auto) 1.5 H, Eos # (Auto) 0.1, Baso # (Auto) 0.1 02/04/22 08:25: Corrected WBC 9.3, Uncorrected WBC Count 9.3, RBC 4.10, Hgb 12.4L, Hct 37.5 L, MCV 91.5, MCH 30.2, MCHC 33.0, RDW 13.7, Plt Count 198, MPV 8.5, Neut % (Auto) 70.1, Lymph % (Auto) 16.4, [place] % (Auto) 12.0, Eos % (Auto) 0.9, Baso % (Auto) 0.6, Nucleat RBC Rel Count 0.0, Neut # (Auto) 6.5, Lymph # (Auto) 1.5, [place] # (Auto) 1.1 H, Eos # (Auto) [...] 02/05/22 1008 [facility] Work Phone: 1(906) 764-478411-15-2022 Evaluation note* Encounter Date Diagnosis Assessment Notes [...] we will evaluate him for left TCAR. [facility] Other 10-31-2022 Evaluation note* Encounter Date Diagnosis [...] complete and CT confirms candidacy for TCAR [facility] Other 09-19-2022 Evaluation note* Encounter Date Diagnosis Assessment Notes Treatment Notes Treatment Clinical Notes Nov, AAA (abdominal aortic aneurysm) without rupture (ICD-10 - I71.4) This patient is still recovering from his recent orthopedic procedures. He continues with physical therapy and although he is getting stronger, he remains quite fatigued and weak yet. He has an upcoming appointment with his obstetrics and gynecology professor for preoperative risk assessment and stratification this next week. We will give him a few more weeks of physical therapy and have him back in a month or so to reschedule his AAA. He did tell me that he had some abdominal pain while in the half-way facility and was taken to the [facility] where a CT of the abdomen was obtained. We will get these studies pushed over for review and comparison. He denies any abdominal pain today and tells me his appetite is pretty good. He knows to call us in the meantime with any issues. [facility] Other 07-26-2022 Evaluation note* Encounter Date Diagnosis [...] agrees with this plan, denies any questions. [facility] Other 07-11-2022 Evaluation note* Encounter Date Diagnosis [...] agrees with this plan, and denies questions. [facility] Other 07-11-2022 Evaluation note* Encounter Date Diagnosis [...] agrees with this plan, and denies questions. [facility] Other 05-23-2022 Evaluation note* Encounter Date Diagnosis [...] returns we will get baseline ankle-brachial indices. [facility] Other 10-06-2021 NoteHNO ID: [id number] Author: Power Catherine MD Service: ? Author Type: Physician Type: Progress Notes Filed: 12/11/2020 11:17 AM Note Text: [facility] OUTPATIENT VISIT DATE December 11, 2020 OUTPATIENT VISIT TYPE EST PRIMARY CARE PHYSICIAN: Shailesh Dunham (Jere) [address] [place] [address] REFERRING PHYSICIAN Power Catherine [address] [facility] [address] CHIEF COMPLAINT: Patient presents with: Established Patient [...] up. Continue statin therapy. ? Power Catherine, [facility]02-11-2021 NotePatient Outreach (COVAMN) CHICO BAKER Abad ([id number]) 1940 M Date Time Provider Department 04/18/20 KIMBERLEY REHMAN During your visit today, we recorded the following information about you: Allergies As of Date: 04/18/2020 Noted Allergy Reaction SHALINI INHIBITORS 05/09/2015 16 - Unknown GADOLINIUM-CONTAINING CONTRAST ME*05/09/2015 16 - Unknown TETANUS VACCINES AND TOXOID 05/16/2015 16 - Unknown Date Reviewed: 10/18/2017 Reviewed by: Power Catherine - Fully Assessed Order(s):SARS-COVID VACCINE 1ST DOSE APPT [[id number]] Order #: [id number] FUTURE Prescriptions as of 04/18/2020 Sig: ASPIRIN 81 MG TABLET,DELAYED * Take 81 mg by mouth once justice* ISOSORBIDE MONONITRATE ER 30 * Take 30 mg by mouth once justice* CARVEDILOL 12.5 MG TABLET Take 12.5 mg by mouth twice d* DOXAZOSIN 4 MG TABLET Take 4 mg by mouth daily at b* Problem List As Of Date: 04/18/2020 (None) Encounter Status:Closed by TIFFANIE JOHNSONUSER on 04/22/20[facility] Evaluation + Plan note Future Appointments Appointment Date:04/15/2022 08:45:00 AM Scheduled Provider:Ivelisse Hassan MD Location:[facility] Appointment Type:URO Office Visit [facility] evaluation + Plan note Future Appointments Appointment Date:04/15/2022 08:45:00 AM Scheduled Provider:Ivelisse Hassan MD Location:[facility] Appointment Type:URO Office Visit Diagnostic Tests Pending * [facility] App[facility]ments Appointment Date:02/25/2022 11:00:00 AM Scheduled Provider:ADALGISA ANTOINE PA-C Location:[facility] Appointment Type:URO Office Visit Appointment Date:04/15/2022 08:45:00 AM Scheduled Provider:Ivelisse Hassan MD Location:[facility] Appointment Type:URO Office Visit [facility] evaluation + Plan note Future Appointments Appointment Date:06/24/2022 09:30:00 AM Scheduled Provider:Ivelisse Hassan MD Location:[facility] Appointment Type:URO Office Visit [facility] evaluation + Plan note Future Appointments Appointment Date:01/13/2023 09:00:00 AM Scheduled Provider:Ivelisse Hassan MD Location:[facility] Appointment Type[facility] Future Appointments Appointment Date:09/01/2023 11:00:00 AM Scheduled Provider:Ivelisse Hassan MD Location:[facility] Appointment Type:URO Office Visit [facility] Evaluation + Plan note Future Appointments Appointment Date:09/01/2023 11:00:00 AM Scheduled Provider:Ivelisse Hassan MD Location:[facility] Appointment Type:URO Office Visit Diagnostic Tests Pending * Calculi Analysis [facility] Diagnosis Onset Date Resolution Status AAA (abdominal aortic aneurysm) acute [facility] Work Phone: evaluation noteNo assessment information available [facility] Work Phone: evaluation noteNo InformationNortServer Density Other evaluation note* Diagnosis Onset Date Resolution Status Left carotid stenosis acute [facility] Work Phone: evaluation note* Diagnosis Onset Date Resolution Status Hypercholesterolemia acute IFG (impaired fasting glucose) acute Kidney stones acute Nonrheumatic aortic (valve) stenosis acute Peripheral artery disease ac [place] Primary hypertension acute [facility] Work Phone: evaluation note* Diagnosis Onset Date Resolution Status Gallbladder polyp acute Hypercholesterolemia acute IFG (impaired fasting glucose) acute Nonrheumatic aortic (valve) stenosis acute Paget's disease of bony pelvis acute Peripheral artery disease ac [place] Primary hypertension acute [facility] Work Phone: evaluation note* Diagnosis Onset Date Resolution Status Gallbladder polyp acute Hypercholesterolemia acute IFG (impaired fasting glucose) acute Nonrheumatic aortic (valve) stenosis acute Paget's disease of bony pelvis acute Peripheral artery disease ac [place] Primary hypertension acute AAA (abdominal aortic aneurysm) without rupture acute [facility] Work Phone: Evaluation note* Diagnosis Onset Date Resolution Status Gallbladder polyp acute Hypercholesterolemia acute IFG (impaired fasting glucose) acute Nonrheumatic aortic (valve) stenosis acute Paget's disease of bony pelvis acute Peripheral artery disease ac [place] Primary hypertension acute AAA (abdominal aortic aneurysm) without rupture acute AAA (abdominal aortic aneurysm) without rupture acute Benign prostatic hyperplasia with lower urinary tract symptoms acute Gallbladder polyp acute Hypercholesterolemia acute Mass of gallbladder acute Nonrheumatic aortic (valve) stenosis acute Paget's disease of bony pelvis acute Peripheral artery disease ac [place] Primary hypertension acute [facility] Work Phone: Evaluation note* Diagnosis Onset Date Resolution Status Hypercholesterolemia acute IFG (impaired fasting glucose) acute Nonrheumatic aortic (valve) stenosis acute Paget's disease of bony pelvis acute Peripheral artery disease [facility] Primary hypertension acute AAA (abdominal aortic aneurysm) without rupture acute AAA (abdominal aortic aneurysm) without rupture acute Benign prostatic hyperplasia with lower urinary tract symptoms acute Hypercholesterolemia acute Mass of gallbladder acute Nonrheumatic aortic (valve) stenosis acute Paget's disease of bony pelvis acute Peripheral artery disease [facility] Primary hypertension acute AAA (abdominal aortic aneurysm) without rupture acute Hypercholesterolemia acute IFG (impaired fasting glucose) acute Mass of gallbladder acute Nonrheumatic aortic (valve) stenosis acute Peripheral artery disease [facility] Primary hypertension acute Preop exam for internal medicine noneactive [facility] Work Phone: Evaluation note* Diagnosis Onset Date Resolution Status Hypercholesterolemia acute IFG (impaired fasting glucose) acute Nonrheumatic aortic (valve) stenosis acute Paget's disease of bony pelvis acute Peripheral artery disease [facility] Primary hypertension acute AAA (abdominal aortic aneurysm) without rupture acute AAA (abdominal aortic aneurysm) without rupture acute Benign prostatic hyperplasia with lower urinary tract symptoms acute Hypercholesterolemia acute Mass of gallbladder acute Nonrheumatic aortic (valve) stenosis acute Paget's disease of bony pelvis acute Peripheral artery disease ac [place] Primary hypertension acute AAA (abdominal aortic aneurysm) without rupture acute Hypercholesterolemia acute IFG (impaired fasting glucose) acute Mass of gallbladder acute Nonrheumatic aortic (valve) stenosis acute Peripheral artery disease ac [place] Primary hypertension acute Preop exam for internal medicine noneactive AAA (abdominal aortic aneurysm) without rupture acute Benign prostatic hyperplasia with lower urinary tract symptoms acute Hypercholesterolemia acute Mass of gallbladder acute Nonrheumatic aortic (valve) stenosis acute Paget's disease of bony pelvis acute Peripheral artery disease ac [place] Primary hypertension acute [facility] Work Phone: Evaluation note* Diagnosis Onset Date Resolution Status AAA (abdominal aortic aneurysm) without rupture acute Benign prostatic hyperplasia with lower urinary tract symptoms acute Hypercholesterolemia acute Mass of gallbladder acute Nonrheumatic aortic (valve) stenosis acute Paget's disease of bony pelvis acute Peripheral artery disease ac [place] Primary hypertension acute AAA (abdominal aortic aneurysm) without rupture acute Hypercholesterolemia acute IFG (impaired fasting glucose) acute Mass of gallbladder acute Nonrheumatic aortic (valve) stenosis acute Peripheral artery disease ac [place] Primary hypertension acute Preop exam for internal medicine noneactive AAA (abdominal aortic aneurysm) without rupture acute Benign prostatic hyperplasia with lower urinary tract symptoms acute Hypercholesterolemia acute Mass of gallbladder acute Nonrheumatic aortic (valve) stenosis acute Paget's disease of bony pelvis acute Peripheral artery disease [facility] Primary hypertension acute Acute on chronic heart failu re with preserved ejection fraction (HFpEF) acute Atrial fibrillation acute Hypercholesterolemia acute IFG (impaired fasting glucose) acute Nonrheumatic aortic (valve) stenosis acute NSTEMI (non-ST elevated myocardial infarction) acute Primary hypertension acute [facility] Work Phone: Evaluation note* Diagnosis Onset Date Resolution Status AAA (abdominal aortic aneurysm) without rupture acute Benign prostatic hyperplasia with lower urinary tract symptoms acute Hypercholesterolemia acute Mass of gallbladder acute Nonrheumatic aortic (valve) stenosis acute Paget's disease of bony pelvis acute Peripheral artery disease [facility] Primary hypertension acute AAA (abdominal aortic aneurysm) without rupture acute Hypercholesterolemia acute IFG (impaired fasting glucose) acute Mass of gallbladder acute Nonrheumatic aortic (valve) stenosis acute Peripheral artery disease [facility] Primary hypertension acute Preop exam for internal medicine noneactive AAA (abdominal aortic aneurysm) without rupture acute Benign prostatic hyperplasia with lower urinary tract symptoms acute Hypercholesterolemia acute Mass of gallbladder acute Nonrheumatic aortic (valve) stenosis acute Paget's disease of bony pelvis acute Peripheral artery disease ac [place] Primary hypertension acute Acute on chronic heart failu re with preserved ejection fraction (HFpEF) acute Atrial fibrillation acute Hypercholesterolemia acute IFG (impaired fasting glucose) acute Nonrheumatic aortic (valve) stenosis acute NSTEMI (non-ST elevated myocardial infarction) acute Primary hypertension acute AAA (abdominal aortic aneurysm) without rupture acute Carotid stenosis, bilateral acute Former smoker acute [facility] Work Phone: Evaluation note* Diagnosis Onset Date Resolution Status AAA (abdominal aortic aneurysm) without rupture acute Hypercholesterolemia acute IFG (impaired fasting glucose) acute Mass of gallbladder acute Nonrheumatic aortic (valve) stenosis acute Peripheral artery disease ac [place] Primary hypertension acute Preop exam for internal medicine noneactive AAA (abdominal aortic aneurysm) without rupture acute Benign prostatic hyperplasia with lower urinary tract symptoms acute Hypercholesterolemia acute Mass of gallbladder acute Nonrheumatic aortic (valve) stenosis acute Paget's disease of bony pelvis acute Peripheral artery disease ac [place] Primary hypertension acute Acute on chronic heart [...] elevated myocardial infarction) acute Primary hypertension acute [facility] Work Phone: Evaluation note* Diagnosis Onset [...] aortic (valve) stenosis acute Primary hypertension acute [facility] Work Phone: Evaluation note* Diagnosis Onset [...] (nonsustained ventricular tachycardia) acute Primary hypertension acute [facility] Work Phone: Evaluation note* Diagnosis Onset [...] AAA (abdominal aortic aneurysm) without rupture acute [facility] Work Phone: Evaluation note* Diagnosis Onset Date Resolution Status Admit Date AAA (abdominal aortic aneury sm) without rupture acute July 12, 2024 3: 00pm ASHD (arteriosclerotic heart disease) acute July 12, 2024 3: 00pm Atrial fibrillation acute July 122024 3:00pm Carotid stenosis, bilateral acute July 12, 2024 3:00pm Chronic heart failure with p reserved ejection fraction (HFpEF) acute July 3:00pm Hypercholesterolemia acute July 12, 2024 3:00pm IFG (impaired fasting glucose) acute July 12, 2024 3:00pm Nonrheumatic aortic (valve) stenosis acute July 12, 2024 3:00pm NSVT (nonsustained ventricul ar tachycardia) acute July 12, 2024 3: 00pm Primary hypertension acute July 12, 2024 3:00pm [facility] Work Phone: Hisiuao general Narrative - Reported* Type Description Date Medical History hypercholesterolemia Medical History abdominal aortic aneurysm Medical History Carotid stenosis Medical History PAD Surgical History TURP Surgical History knee arthroscopy LEFT Surgical History Vein stripping Hospitalization History See Above Hydrostor Other Hisjisd general Narrative - Reported* Type Description Date Medical History hypercholesterolemia Medical History abdominal aortic aneurysm Medical History Carotid stenosis Medical History PAD Surgical History TURP Surgical History knee arthroscopy LEFT Surgical History Vein stripping Surgical History RT FEMUR FX WITH ARABELLA PLACEMENT Hospitalization History See Above Hydrostor Other Hisgwku general Narrative - Reported* Type Description Date Medical History hypercholesterolemia Medical History abdominal aortic aneurysm Medical History Carotid stenosis Medical History PAD Medical History [ ] Surgical History TURP Surgical History knee arthroscopy LEFT Surgical History Vein stripping Surgical History RT FEMUR FX WITH ARABELLA PLACEMENT Surgical History EVAR 02/04/2022 Surgical History [ ] Hospitalization History See Above Hydrostor Other Hisgrxl general Narrative - Reported* Type Description Date [...] History COLONOSCOPY 2019 Hospitalization History See Above Hydrostor Other Hisukpj general Narrative - Reported* Type Description Date [...] Left TCAR 07/2022 Hospitalization History See Above Hydrostor Other History general Narrative - Reported* Type [...] Left TCAR 07/2022 Hospitalization History See Above Hydrostor Other History general Narrative - Reported* Type [...] left ESWL 03/2023 Hospitalization History See Above Hydrostor Other Hospital course Narrative No data available for this section [facility] Discharge instructions No data available for this section [facility] Raul Quan [facility] October 15, 2021 4:31pm Note Date/Time October 15, 2021 4: 31pm [facility] EN[facility] [address] [place] [address] Vascular Surgery Progress Note Signed Patient: Chico Baker MR#: [id number] : 1940 Acct:[id number] Age/Sex: 81 / M Adm Date: 2 Loc: Room: [address] [place] [address] Type: DIS IN Attending Dr: Raul Quan [...] with evaluation here. I will contact [facility] to performoutpatient cardiac evaluation and then he will be rescheduled when he is cleared. Code(s): I71.4 - Abdominal aortic aneurysm, without rupture Status: Acute Documented By: Raul Quan MD 10/15/21 162 9 Signed By: <Electronically signed by MD Raul Quan> 10/15/21 1631 [facility] Work Phone: Proyajle note Author Pb Zurita [facility] October 16, 2021 5:41am Note Date/Time October 16, 2021 5: 41am [facility] EN[facility] [address] [place] [address] Anesthesia Progress Note Signed Patient: Chico Baker MR#: [id number] : 1940 Acct:[id number] Age/Sex: 81 / M Adm Date: 2 Loc: Room: [address] [place] [address] Type: DIS IN Attending Dr: Raul Quan [...] historian. Advised patient and family to see obstetrics and gynecology professor for consideration of preop stress testing. Discussed with surgeon Documented By: Pb Zurita MD 10/16/21 7735 Signed By: <Electronically signed by Pb Zurita MD> 10/16/21 3436 [facility] Work Phone: Progness note No data available for this section [facility] Reason for Referral No Reason for [...] Documentation i71.4 BP check S/P EVAR; [facility] Reason for Visit Gallbladder polyp Hypercholesterolemia IFG [...] Complaint i71.4 BP check S/P EVAR; [facility] Nonrheumatic aortic stenosis Reason for Visit Gallbladder [...] Complaint i71.4 BP check S/P EVAR; [facility] Nonrheumatic aortic stenosis sugical clearance, gall bladder [...] Complaint i71.4 BP check S/P EVAR; [facility] Nonrheumatic aortic stenosis sugical clearance, gall bladder [...] Complaint i71.4 BP check S/P EVAR; [facility] Nonrheumatic aortic stenosis sugical clearance, gall bladder [...] (abdominal aortic aneurysm) without rupture Chief Complaint Admit Date Amb Documentation July 03, 2024 11: 37am [facility] f/u cath-HIGH RISK July 12, 2024 3: 00pm Reason for Visit Admit Date AAA (abdominal aortic aneurysm) without rupture July 12, 2024 3:00pm ASHD (arteriosclerotic heart disease) Ma y 2024 3:00pm Atrial fibrillation July 12, 2024 3:00pm Carotid stenosis, bilateral July 12 3:00pm Chronic heart failure with preserved eje ction fraction (HFpEF) July 12, 2024 3:00pm Hypercholesterolemia July 12, 2024 3:00p m IFG (impaired fasting glucose) July 12, 2024 3:00pm Nonrheumatic aortic (valve) stenosis July 12, 2024 3:00pm NSVT (nonsustained ventricular tachycard ia) July 12, 2024 3:00pm Primary hypertension July 12, 2024 3:00p m Chief Complaint Admit Date Amb Documentation July 03, 2024 11: 37am [facility] f/u cath-HIGH RISK July 12, 2024 3: 00pm Amb Documentation August 07, 2024 10:09 am [facility]; TAVR August 14, 2024 11:39 am Reason for Visit Admit Date AAA (abdominal aortic aneurysm) without rupture July 12, 2024 3:00pm ASHD (arteriosclerotic heart disease) Ma y 2024 3:00pm Atrial fibrillation July 12, 2024 3:00pm Carotid stenosis, bilateral July 12 3:00pm Chronic heart failure with preserved eje ction fraction (HFpEF) July 12, 2024 3:00pm Hypercholesterolemia July 12, 2024 3:00p m IFG (impaired fasting glucose) July 12, 2024 3:00pm Nonrheumatic aortic (valve) stenosis July 12, 2024 3:00pm NSVT (nonsustained ventricular tachycard ia) July 12, 2024 3:00pm Primary hypertension July 12, 2024 3:00p m AAA (abdominal aortic aneurysm) without rupture August 14, 2024 11:39am Anemia August 14, 2024 11:39 am ASHD (arteriosclerotic heart disease) Ju ne 2024 11:39am Atrial fibrillation August 14, 2024 11:39 am Carotid stenosis, bilateral August 14 11:39am Chronic heart failure with preserved eje ction fraction (HFpEF) August 14, 2024 11:39am Hypercholesterolemia August 14, 2024 11:3 9am IFG (impaired fasting glucose) August 14, 2024 11:39am Nonrheumatic aortic (valve) stenosis Kenji e 2024 11:39am NSVT (nonsustained ventricular tachycard ia) August 14, 2024 11:39am Primary hypertension August 14, 2024 11:3 9am S/P TAVR (transcatheter aortic valve rep lacement) August 14, 2024 11:39am Additional Source Comments Medical History (unrecognize d [...] section and content) DATE CREATED AUTHOR 04/02/2021 [facility] DATE CREATED AUTHOR AUTHOR'S ORGANIZ ATION 10/28/2021 [facility] DATE CREATED AUTHOR AUTHOR'S ORGANIZ ATION 04/14/2022 [facility] DATE CREATED AUTHOR AUTHOR'S ORGANIZ ATION 05/13/2023 [place] [facility] DATE CREATED AUTHOR AUTHOR'S ORGANIZ ATION 07/29/2023 [facility] DATE CREATED AUTHOR AUTHOR'S ORGANIZ ATION 01/12/2024 [facility] DATE CREATED AUTHOR AUTHOR'S ORGANIZ ATION 09/01/2024 [facility] REASON FOR VISIT (unrecogniz ed section and content) REF BY DR DUNHAM FOR AAA, PAD AND CAROTID STENOSIS, Needs a new vascular surgeon7 WK FOLLOW UP; SHYANNE'S, ABDOMINAL, CAROTID WK FOLLOW UP; SHYANNE'S, ABDOMINAL, CAROTID 08/27/21FOLLOW UP AFTER [facility] 09/18/21-AAAAAA see pt post femur fx rt and clavicle rt6 WK FOLLOW UP, Follow-up abdominal aortic aneurysmVASC 3 MONTH FOLLOW UP; CAROTID DUPLEX 11A, Abdominal aortic aneurysm3 week f/u EVAR, Follow-up after percutaneous aneurysm repairNo InformationNo InformationNo InformationNo InformationNo Information2 MONTH FOLLOW UP; [facility] Up[facility] InformationNo InformationNo Information3 week f/u [...] Shailesh Dunham DO Primary Care Provider Active BK Wang Attending Provider Active Team Status: Inactive Member Role Status Kirk Dunham DO Attending Provider Active Sta rt: March 29, 2023 End: March 29, 2023 Team Status: Active Member Role Status Dates Sheri Christiansen MD Stable Attendant Active Shailesh Dunham DO Primary Care Provider Active Team Status: Inactive Member Role Status Kirk Dunham DO Primary Care Provide r, Referring Provider Active Start: August 19, 2023 End: August 19, 2023 Sheri Christiansen MD Attending Provider Active Sta rt: August 19, 2023 End: August 19, 2023 Team Status: Active Member Role Status Kirk Dunahm DO Primary Care Provider Active Start: August [...] Dunham DO Primary Care Provider Active Start: January 11, 2024 End: January 11, 2024 Raul Quan MD Attending Provider Active S tart: January 11, 2024 End: January 11, 2024 Team Status: Active Member Role Status Dates Shailesh Dunham DO Primary Care Provider Active Start: January 11, 2024 Raul Quan MD Attending Provider Active S tart: January 11, 2024 Team Status: Active Member Role Status Dates Shailesh Dunham DO Primary Care Provider Active Start: May 25, 2024 Jez Cerda MD Attending Provider Active Start : May 25, 2024 Team Status: Active Member Role Status Dates Shailesh Dunham DO Primary Care Provider Active Start: June 21, 2024 Joel Spring MD Attending Provider Active Start: June 21, 2024 Team Status: Active Member Role Status Dates Shailesh Dunham DO Primary Care Provider Active Start: July 03, 2024 Maureen Velasquez CMA Attending Provider Active Start: July 03, 2024 Team Status: Inactive Member Role Status Dates Shailesh Duhnam DO Primary Care Provide r, Attending Provider Active Start: July 12, 2024 End: July 12, 2024 Team Status: Active Member Role Status Dates Shailesh Dunham DO Primary Care Provider Active Start: July 18, 2024 Joel Spring MD Attending Provider Active Start: July 18, 2024 Team Status: Active Member Role Status Dates Shailesh Dunham DO Primary Care Provider Active Start: August 07, 2024 Maureen Velasquez CMA Attending Provider Active Start: August 07, 2024 Team Status: Inactive Member Role Status Dates Shailesh Dunham DO Primary Care Provide r, Attending Provider Active Start: August 14, 2024 End: August 14, 2024 Maureen Velasquez CMA Reinforced Concrete Inspector Active art: August 14, 2024 End: August 14, 2024 Goals (unrecognized section and content) Goals [...] BE BASED ON THE PRIMARY CLINICAL RECORDS. [facility]. provides no warranty or guarantee of the accuracy or completeness of information in this document.
--- OUTSIDE RECORDS SUMMARY | 2024-09-02 09:47 | XMS_ITS | Encounter Summary ---
Author Organization [employer] Address [facility] [place] [id number] [address] [place] [address] Care Team Providers Care Film Washer Name Role Phone Shailesh Vinson Primary Care Provider [phone] Reason for Visit * Reason Onset Date Comments PT Discharge 10/30/2021 Encounter Details Date Type Department Care Team (Late st Contact Info) Description 10/30/2021 Telephone [facility] [address] [place] [id number] Paula Amezquita MD [address] [place] [address] PT Discharge Social History Tobacco [...] following for preoperative cardiac care. Echocardiogram showed [id number] aortic stenosis. He is currently stable from [...] would appreciate a referral sent to [facility]. documented as of this encounter Visit Diagnoses Not on filedocumented in this encounter Care Teams Film Washer Relationship Specialty Start Date End Date Shailesh Vinson DO [address] [place] [address] PCP - General Internal Medicine 10/26/21 documented as of this encounter
--- OUTSIDE RECORDS SUMMARY | 2024-09-02 09:47 | XMS_ITS | Clinical Summary ---
Author Organization [facility] Address [address] [place] [address] Phone Care Team Providers Care National Account Manager Name Role Phone Shailesh Vinson DO Primary Care Provider [phone] Social History Tobacco Use Types Packs/Day Years Used Date Smoking Tobacco: Never Assessed Sex and Gender Information Value Date Recorded Sex Assigned at Not on file Legal Sex Male 9:39 PM EST Gender Identity Not on file Sexual Orientation Not on file Plan of Treatment Health Maintenance Due Date Last Done Comments Lipid Panel 1940 Medicare Annual Wellness Vis it (AWV) 1940 DTaP/Tdap/Td Vaccines (1 - Tdap) 1964 Pneumococcal Vaccine (1 of 1 - PCV) 1992 Zoster Vaccines (1 of 2) 1992 RSV [...] MEDICARE PART A AND B Care Teams National Account Manager Relationship Specialty Start Date End Date Shailesh Vinson DO PCP - General 03/08/99
[2024-09-02] MEDS: DILTIAZEM HCL 25 MG/5 ML VIAL 10 MG IV (09:56)
[2024-09-02 10:10] LABS: Basophils Percent Auto 0.3 % (0.2-2.0); Eosinophils Absolute Auto 0.1 10^3/uL (0.0-0.7); Eosinophils Percent Auto 0.8 % (0.9-7.0); Hematocrit 34.2 % (42.0-54.0); Hemoglobin 11.2 g/dL (14.0-18.0); Immature Granulocytes Abs Auto 0.02 10^3/uL (0.00-0.03); Immature Granulocytes Pct Auto 0.3 % (0.0-0.5); Lymphocytes Absolute Auto 1.2 10^3/uL (1.2-3.8); Lymphocytes Percent Auto 15.2 % (20.5-60.0); Mean Corpuscular HGB Conc 32.7 g/dL (29.9-35.2); Mean Corpuscular Hemoglobin 30.7 pg (25.9-34.0); Mean Corpuscular Volume 93.7 fL (80.0-94.0); Mean Platelet Volume 10.8 fL (9.5-13.5); Monocytes Absolute Auto 0.7 10^3/uL (0.3-0.8); Monocytes Percent Auto 9.1 % (1.7-12.0); Neutrophils Absolute Auto 5.8 10^3/uL (1.4-6.5); Neutrophils Percent Auto 74.3 % (43.0-75.0); Platelet Count 157 10^3/uL (150-450); Red Blood Count 3.65 10^6/uL (4.70-6.10); Red Cell Distribution Width 13.5 % (11.0-15.0); White Blood Count 7.8 10^3/uL (4.0-11.0)
[2024-09-02] MEDS: dilTIAZem HCL 125 MG in 0.9 % SODIUM CHLORIDE 100 ML 10 MG IV (10:32)
[2024-09-02 10:34] LABS: Anion Gap 15.5; Calcium 8.6 mg/dL (8.5-10.1); Carbon Dioxide 25.8 mmol/L (21.0-32.0); Chloride 107 mmol/L (98-107); Estimated GFR (African America >60 (>=60 mL/min/1.73m^2); Estimated GFR (Non-African Ame >60 (>=60 mL/min/1.73m^2); Glucose 168 mg/dL (74-106); Potassium 4.3 mmol/L (3.5-5.1); Sodium 144 mmol/L (136-145)
[2024-09-02 10:37] LABS: Troponin I High Sensitivity 84.8 pg/mL (4.0-76.1)
--- NOTE | 2024-09-02 10:43 | ECG_ITS ---
[facility] Test Date: 2024-09-02 Pat Name: CHICO BAKER Department: Room: - Gender: Male [employer] In[employer]: : 1940 Requested By: DESHAUN WESTON Order Number: [id number] Reading MD: JOEL BARNES M.D. Measurements Intervals [place] Rate: 83 P: 67 ME: 162 QRS: 72 QRSD: 130 T: 30 QT: 436 QTc: 476 Interpretive Statements 1100 Sinus rhythm 1470 with occasional supraventricular premature complexes 1574 with frequent ventricular premature complexes 3114 Cannot rule out anterior myocardial infarction, age undetermined [address] depression 7300 Indeterminate axis 9150 abnormal ECG Compared to ECG 09/02/2024 09:30:45 Ventricular premature complex(es) now present Atrial flutter no longer present Electronically Signed On 09-02-2024 12:10:11 EDT by JOEL BARNES M.D.
[2024-09-02 11:41] LABS: Troponin I High Sensitivity 126.5 pg/mL (4.0-76.1)
== END 2024-09-02 14:45 | disposition short-term general hospital (02) ==
PROVIDERS: Emergency Provider Emergency Medicine; PCP Internal Medicine
DX: I48.91 Unspecified atrial fibrillation (principal); R79.89 Other specified abnormal findings of blood chemistry; Z87.891 Personal history of nicotine dependence
CPT/HCPCS: 36415; 71045; 80048; 84484; 85025; 93005; 96365; 96366; 96376; 99285

== ENCOUNTER 2024-10-25 13:34 | Observation (INO) | payer MEDICARE, OTHER, SELFPAY ==
[2024-10-25] VITALS (40 sets, daily range): BP systolic 125–206; BP diastolic 57–102; PULSE 62–82; TEMP 36.6–36.8; O2SAT 88–100; BMI 20.2; BMI 20.6
--- NOTE | 2024-10-25 13:50 | ECG_ITS ---
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 Measurements Intervals [place] Rate: 66 P: 75 CT: 162 QRS: 69 QRSD: 96 T: 41 QT: 424 QTc: 438 Interpretive Statements 1100 Sinus rhythm 4068 Nonspecific Twave abnormality 9130 borderline ECG Compared to ECG 09/02/2024 10:49:51 Ventricular premature complex(es) no longer present Myocardial infarct finding no longer present ST (T wave) deviation no longer present Indeterminate axis no longer present Electronically Signed On 10-25-2024 18:23:11 EDT by JOEL BARNES M.D.
--- OUTSIDE RECORDS SUMMARY | 2024-10-25 13:57 | XMS_ITS | CCD ---
Author Organization [facility] Care Team Providers Care At Risk Specialist Name Role Phone Oralndo Dotson Unavailable Raul Quan Unavailable Tamar Perea Unavailable Shailesh Dunham Unavailable DO Shailesh Dunham Primary Care Provider MD Raul Quan Attending Provider [phone] KB Perea Attending Provider MD Raul Quan Admit Provider DO Shailesh Dunham Primary Care Provider BK Perea Attending Provider MD Raul Quan Admit Provider MD Raul Quan Attending Provider SHAILESH DUNHAM Primary Care Physician IVELISSE FRANCIS Admitting Unavailable IVELISSE FRANCIS Attending Unavailable ENRICO, DR CASH Primary Care Unavailable IVELISSE FRANCIS Consulting Unavailable ENRICO, DR CASH Admitting Unavailable ENRICO, DR CASH Attending Unavailable ENRICO, DR CASH Referring Unavailable BALL, DR CASH Primary Care Unavailable ENRICO, DR CASH Consulting Unavailable ENRICO, DR CASH Admitting Unavailable ENRICO, DR CASH Attending Unavailable ENRICO, DR CASH Primary Care Unavailable ENRICO, DR CASH Consulting Unavailable ENRICO, DR CASH Admitting Unavailable ENRICO, DR CASH Attending Unavailable ENRICO, DR CASH Primary Care Unavailable ENRICO, DR CASH Consulting Unavailable DAVION, DR ROCIO Dean Consulting Unavailable AVELINA, DR BILLS Admitting Unavailable AVELINA, DR BILLS Attending Unavailable ENRICO, DR CASH Primary Care Unavailable AVELINA, DR BILLS Consulting Unavailable ENRICO, DR CASH Primary Care Unavailable CARLOS, DR SUZE Phelps Admitting Unavailable CARLOS, DR SUZE Phelps Attending Unavailable CARLOS, DR SUZE Phelps Consulting Unavailable TAYO CASTILLO Consulting Unavailable ENRICO, DR CASH Primary Care Unavailable GORAN, GILES Admitting Unavailable GORAN, GILES Attending Unavailable NY, CHARLES Consulting Unavailable GORAN, GILES Consulting Unavailable SCHREIBMAN, DEL Consulting Unavailable PELZ, JANE Consulting Unavailable STRAWSER, NICOLE Consulting Unavailable REQUEST, DR NONE LISTED Admitting Unavaila ble REQUEST, NONE LISTED Attending Unavaila ble ENRICO, DR CASH Primary Care Unavailable REQUEST, NONE LISTED Consulting Unavaila ble Shailesh Dunham Unavailable DO Shailesh Dunham Primary Care Provider MD Raul Quan Attending Provider DO Shailesh Dunham Primary Care Provider MD Raul Quan Attending Provider [phone] MD Raul Quan Admit Provider DO Shailesh [...] Care Provider MD Raul Quan Attending Provider [phone] JEZ CORREA Attending Unavailable SHAILESH DUNHAM Referring Unavailable MD Sheri Christiansen Attending Provider [phone] DO Shailesh Dunham Primary Care Provider [phone] MD Raul Quan Attending Provider [phone] DO Shailesh Dunham Primary Care Provider [phone] MD Sheri Christiansen Attending Provider [phone] Enrico Shailesh Primary Care Provider Enrico, DO Cahs Primary Care Provider [phone] MD Raul Quan Attending Provider Shailesh Dunham Primary Care Unavailable Melindarer, Raul Admitting Unavailable Avelina, Raul Attending Unavailable Avelina, Raul Admitting Unavailable MelindareRaul phelps Attending Unavailable Enrico, Shailesh Primary Care Unavailable Ball, Shailesh Primary Care Unavailable Buehrer, Raul Admitting Unavailable Buehrer, Raul Attending Unavailable Enrico, Shailesh Primary Care Unavailable Елена, Sheri Admitting Unavailable Елена, Sheri Attending Unavailable Enrico, Shailesh Primary Care Unavailable Елена, Sheri Admitting Unavailable Елена, Sheri Attending Unavailable Enrico AMADOR Shailesh Primary Care Provider Joel Spring MD, V Attending Provider Maureen Velasquez CMA Attending Provider Unavaila ble Shailesh Dunham DO Attending Provider Raul Chadwick DO Attending Provider MARIANO DOOLEY Attending Unavailable YAZHOHAILEY, MOHAMAChavez Admitting Unavailable JEZ CERDA Attending Unavailable JOEL SPRING Attending Unavailable LEVY ROMAN Referring Unavailable LEXII JULIAN Attending Unavailable DIEGO SOUSA Admitting Unavailable ADGO CHADWICK Referring Unavailable JEZ CERDA Referring Unavailable JOEL SPRING Attending Unavailable FRANCE BENITEZ Attending Unavailable JOEL SPRING Referring Unavailable MAYER, ESTUARDO Referring Unavailable ALGHOTHANI, MOHAMAD Referring Unavailable MAYER, ESTUARDO Referring Unavailable MAYER, ESTUARDO Referring Unavailable MAYER, ESTUARDO Referring Unavailable FRANKIE BRENNAN Attending Unavailable LEXII JULIAN Referring Unavailable JEZ CERDA Referring Unavailable JEZ CERDA Referring Unavailable ARUN STOCK Referring Unavailable MOJOEL CUMMINGS Attending Unavailable JOEL SPRING Referring Unavailable DAYAMI, ARUN Referring Unavailable DEANDRA, HARIKA Referring Unavailable MAYER, ESTUARDO Referring Unavailable MAYER, ESTUARDO Referring Unavailable JEZ CERDA Attending Unavailable MARIANO DOOLEY Attending Unavailable KULAKOWSKI, HAILE J Referring UnavailESTUARDO Pack Referring Unavailable CHRIS CHAVEZ Referring Unavailable OSPINA, PILY Referring Unavailable SAMMIE CORRAL Referring Unavailable SANARTEMIO CASTLE Referring Unavailable PRASHANTJEZ WATT Referring Unavailable ARUN STOCK Attending Unavailable BLANCA CARR Referring Unavailable ARUN STOCK Attending Unavailable HELEN MATHEWS Referring Unavailable MOUKAJOEL MASCORRO Referring Unavailable MOUKARBEL, JOEL Referring Unavailable MEENA, KEATON Referring Unavailable GIOVANNY CARRIZALES Attending Unavailable CHUN BRYANT Attending Unavailable CHUN BRYANT Attending Unavailable JEZ CERDA Referring Unavailable ALGHOMARIANO HART Referring Unavailable MOUKARBEL, JOEL Referring Unavailable SEYMOUR COHN Attending Unavailable MEENA, KEATON Attending Unavailable MOUKALUDWIN, JOEL Attending Unavailable SHAYNA, SAMMIE Attending Unavailable ESTUARDO MAYER Referring Unavailable PRASHANTJEZ Basurto Attending Unavailable LEVY ROMAN Attending Unavailable SALAHALDEEN, AYA Admitting Unavailable CARDOSO, LAZARA Attending Unavailable KATHY, CHRIS Admitting Unavailable Allergies Allergy Classification Reported Allergen(s) Allergy Type Date of Onset Reaction(s) Facility Angiotensin Converting Enzyme (SHALINI) Inhibitors (2 sources) Angiotensin Converting Enzyme (Shalini) Inhibitors Drug Allergy 08-27-19 24 [facility] Tetanus immune globulin (2 sources) Tetanus immune globulin Drug Allergy 08-27-19 24 Unknown Reaction [facility] (5 sources) Angiotensin Converting Enzyme (Shalini) Inhibitors Drug allergy Unknown [facility] Other (6 sources) Tetanus vaccine; Translations: [tetanus toxoid] Drug allergy Unknown [facility] Repository (20 sources) Angiotensin Converting Enzyme (Shalini) Inhibitors; Translations: [Angiotensin-conv erting enzyme inhibitor agent (substance)] Allergy to substance 05-09-[address] [facility], [facility] (8 sources) Contrast media Allergy to substance 10-07-19 22 [facility] (20 sources) Tetanus immune globulin; Translations: [tetanus immune globulin] Drug Allergy 02-24-20 19 Unknown Reaction [facility] (20 sources) Angiotensin-conve rting enzyme inhibitor agent Drug allergy Unknown [facility] Other (2 sources) Tetanus toxoid specific immunoglobulin E Drug allergy Unknown [facility] Other (12 sources) Contrast media; Translations: [Contrast Dye] Allergy to substance unknown [facility] (13 sources) Iodine; Translations: [iodine] Drug Allergy 10-27-19 Unknown (qualifier value) [facility] (11 sources) tetanus toxoid vaccine, inactivated; Translations: [tetanus toxoid] Drug Allergy Unknown (qualifier value) [facility] (1 source) Iodine Drug Allergy [facility] Repository (1 source) Iodine (And Iodine Containting Drugs) Drug allergy (disorder) [facility] Repository (1 source) Tetanus AND Diphtheria Tox,Adult Drug allergy (disorder) [facility] Repository (20 sources) Tetanus vaccine Drug allergy Unknown [facility] Other (20 sources) Iodinated Contrast Media; Translations: [Iodinated Contrast Media] Allergy to substance 10-27-19 Hives [facility] (19 sources) tetanus toxoid, adsorbed; Translations: [tetanus toxoid, adsorbed] Allergy to substance 04-26-19 Unknown Reaction [facility] (1 source) GADOLINIUM-CONTAI MAYA CONTRAST MEDIA; Translations: [GADOLINIUM-CONTA INING CONTRAST MEDIA] Propensity to adverse reactions to drug (disorder) 05-09-[address] [facility] Repository (1 source) TETANUS AND DIPHTHERIA TOXOIDS; Translations: [TETANUS AND DIPHTHERIA TOXOIDS] Propensity to adverse reactions to drug (disorder) 10-27-19 [facility] Repository (1 source) TETANUS VACCINES AND TOXOID; Translations: [TETANUS VACCINES AND TOXOID] Propensity to adverse reactions to drug (disorder) 05-16-[address] [facility] Repository Medications Current Medications Medication Drug Class(es) Dates Sig (Normalized) Sig (Original) amiodarone hydrochloride 200 mg oral tablet (2 sources) Antiarrhythmic Start: 09-13-2024 take 1 tablet by mouth twice daily Start: 09-07-2024 End: 09-13-2024 take 1 tablet by mouth once daily Amiodarone 200 mg tablet Discontinued 200 MG PO Daily September 07, 2024 12:00am September 13, 2024 11:53am apixaban 2.5 mg oral tablet (12 sources) Factor Xa Inhibitor Start: 08-07-2024 take 1 tablet by mouth twice daily Apixaban (Eliquis) 2.5 mg tablet Active 2.5 MG PO Twice daily August 07, 2024 12:00am Complies with drug therapy Start: 10-19-2023 End: 01-22-2024 take 1 tablet by mouth twice daily Apixaban (Eliquis) 2.5 mg tablet Discontinued 2.5 MG PO Twice daily October 19, 2023 12:00am January 22, 2024 1:17pm clopidogrel 75 mg oral tablet (20 sources) [id number] Platelet Inhibitor Start: 07-12-2024 take 1 tablet by mouth once daily Clopidogrel 75 mg tablet Active 75 MG PO Daily July 12, 2024 12:00am Complies with drug therapy Start: 09-16-2021 End: 04-26-2023 take 1 tablet by mouth once daily in the morning Clopidogrel 75 mg tablet Discontinued 75 MG PO Every morning July 01, 2022 12:00am April 26, 2023 1:04pm Enoxaparin (2 sources) Low Molecular Weight Heparin Enoxaparin Sodium until 11/27/21 Active ferrous sulfate 325 mg oral tablet (3 sources) Start: 5 take 1 tablet by mouth once daily Ferrous Sulfate 325 mg (65 mg iron) tablet Active 325 MG PO Daily July 12, 2024 12:00am Complies with drug therapy folic acid 1 mg oral tablet (3 sources) Start: 5 take 1 tablet by mouth once daily Folic Acid 1 mg tablet Active 1 MG PO Daily July 12, 2024 12:00am Complies with drug therapy hydrALAZINE hydrochloride 10 mg oral tablet (1 source) Arteriolar Vasodilator Start: 5 take 1 tablet by mouth three times daily Hydralazine 10 mg tablet Active 10 MG PO Three times daily September 13, 2024 12:00am Complies with drug therapy isosorbide dinitrate 20 mg oral tablet (12 sources) Nitrate Vasodilator Start: 5 take 1 tablet by mouth three times daily Isosorbide Dinitrate 20 mg tablet Active 20 MG PO Three times daily September 13, 2024 12:00am allow nitrate-free interval of 12-14 hrs per 24-hr period Complies with drug therapy Start: 03-28-2019 take 30 mg by mouth [...] 6:02pm unless BP is greater than 140 Complies with drug therapy Start: 10-22-2023 End: 03-09-2024 Losartan 50 mg [...] DAYS Start: 07-26-2023 take 1 tablet by shirlene th twice daily Losartan Active 0 .ROUTE [...] twice daily Active take 1 tablet by shirlene th every twenty-four hours Losartan Potassium 100 MG 1 tablet Orally Once a day Active Losartan Potassi um Active metoprolol tartrate 25 mg oral tablet (1 source) beta-Adrenergic Helder Start: 09-13-2024 take 1 tablet by mouth twice daily Metoprolol Tartrate 25 mg tablet Active 25 MG PO Twice daily September 13, 2024 12:00am Complies with drug therapy 24 hr mirabegron 25 mg extended release [...] BY MOUTH EVERY DAY IN THE EVENING Complies with drug therapy Start: 07-20-2023 End: 04-25-2024 take 1 tablet [...] 10:15am Start: 04-05-2023 take 1 tablet by shirlene th every twenty-four hours amLODIPine Besylate 2.5 MG 1 tablet Orally Once a day for 30 days Mar, Active Start: 04-05-2023 take 1 tablet by shirlene th every twelve hours amLODIPine Besylate 2.5 MG 1 tablet Orally bid Mar, Active {1 (ascorbic acid 7540 MG / polyethylene glycol 3350 99962 MG / potassium chloride 1200 MG / sodium ascorbate 57830 MG / sodium chloride 3200 MG Powder for Oral Solution) / 1 (polyethylene glycol 3350 [id number] MG / potassium chloride 1000 MG / [...] 01, 2022 9:43am take 1 tablet by shirlene once daily Aspirin 81 81 MG 1 [...] Start: 02-11-2022 take 2 tablets by mo [facility] three times daily calcium (as calcium citrate) [...] 01, 2022 9:44am take 1 tablet by shirlene th every twelve hours Carvedilol 25 MG 1 tablet with food Orally Twice a day Active Carvedilol Activ e cefdinir 300 mg oral capsule (10 sources) Cephalosporin Antibacterial Start: 10-19-2023 End: 11-15-2023 [...] 01, 2022 9:45am take 1 tablet by shirlene th every twenty-four hours Vitamin D3 25 [...] 2021 10:38am hydroCHLOROthiazide 25 mg oral tablet (10 sources) Thiazide Diuretic Start: 10-19-2023 End: 11-23-2023 [...] release 24 hr Discontinued 0 .ROUTE .COMPLEX June 28, 2023 1:30pm July 20, 2023 10:19am TAKE 1 TABLET BY MOUTH EVERY DAY Start: 02-23-2019 End: 04-26-2023 take 1 tablet by mouth once daily, then take 1 tablet by mouth every twenty-four hours Isosorbide Mononitrate 30 mg tablet extended release 24 hr Discontinued 30 MG PO Daily February 23, 2019 1:00am April 26, 2023 6:54pm Isosorbide Jeffrey itrate Active omeprazole 20 mg delayed release oral capsule (13 sources) Proton Pump Inhibitor Start: 08-27-2023 End: [...] 22, 2023 12:15pm take 1 tablet by shirlene th every eight hours as needed oxyBUTYnin Chloride 5 MG 1 tablet Orally every 8 hours as needed Active potassium chloride 10 meq extended release oral capsule (10 sources) Start: 10-19-2023 End: 11-23-2023 take 1 [...] tablet Disc ontinued 50 MG PO Once May 27, 2023 12:00am June 22, 2023 12:15pm Orally for (3) THREE DOSES; 6 hours apart with the last dose 30 minutes before test. rivaroxaban 15 mg oral tablet (3 sources) Factor Xa Inhibitor Start: 01-22-2024 End: [...] 22, 2023 12:15pm take 1 capsule by [facility] every twenty-four hours Tamsulosin HCl 0.4 MG 1 capsule Orally Once a day Active vancomycin 125 mg oral capsule (6 sources) Glycopeptide Antibacterial Start: 12-17-2023 End: 07-12-2024 [...] [Acute on chronic diastolic (congestive) heart failure] Onset: 01-18-2024 10-17-2023 Chronic Comment on above: Echo: LVEF 60-65%, n ormal RV size/function, RVSP 42, AV velocity 209, gradient 34/19 - 10/2023 Echo: LVEF 55%, normal RV size/function, ASHOK 0.9cm, velocity 266, gradient 28/18 - 04/2024 Coronary atherosclerosis and other heart disease (20 sources) Coronary arteriosclerosis; Translations: [Atherosclerotic heart disease of [place] coronary artery without angina pectoris] Onset: 11-14-2021 03-28-2019 Chronic Comment on above: Stress: fixed defect infero-apical wall, LVEF 51% - 01/2024,Event monitor: NSVT - 03/2024,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,LHC: PTCA/stent mid LAD, PTCA/stent 1st OM, PTCA/stent 2nd OM - 06/2024 Deficiency and other anemia (20 sources) Anemia; Translations: [Anemia, unspecified] 08-14-2024 Episodic [...] size/function, AO velocity 312, AO gradient 34/22, ASHOK 0.98 - 08/2023Echo: LVEF 60-65%, normal RV [...] Chronic Other bone disease and musculoskeletal deformities (16 sources) Paget's disease of pelvis; 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] 06-22-2023 Chronic Other bone disease and musculoskeletal deformities (18 sources) Osteitis deformans of other bones; Translations: [Osteitis deformans without mention of bone tumor] 06-22-2023 Chronic Other circulatory disease (2 sources) Presence of other cardiac implants and grafts; Translations: [Presence of other cardiac implants and grafts] Onset: 05-03-2024 Chronic Other diseases of bladder and urethra [...] disease (2 sources) Hemoptysis; Translations: [Hemoptysis] Onset: 06-29-2024 Episodic Other male genital disorders (17 sources) [...] 08-15-2019 Episodic Superficial injury; contusion (4 sources) Abrasion of throat, initial encounter; Translations: [Contusion of unspecified part of neck, sequela] Onset: 06-29-2024 Episodic Unclassified (11 sources) Asymptomatic microscopic hematuria [...] [EPIGASTRIC PAIN] Onset: 2 Episodic Allergic reactions (20 sources) Allergy to contrast media; Translations: [Radiographic dye allergy status] Onset: 4 05-27-2023 Episodic Biliary tract disease (20 sources) Polyp of gallbladder; 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] Onset: 4 06-22-2023 Episodic Coronary atherosclerosis and other heart disease (2 sources) Presence of coronary angioplasty implant and graft; Translations: [Presence of coronary angioplasty implant and graft] Onset: 5 Episodic Deficiency and other anemia (1 source) Other specified anemias; Translations: [OTHER SPECIFIED ANEMIAS] Onset: 2 Episodic Deficiency and other anemia (7 sources) Anemia, unspecified; Translations: [Anemia, unspecified] Onset: 2 Episodic E Codes: Fall (2 [...] 2 Episodic Other aftercare (1 source) Other watermelon inspector (current) drug therapy; Translations: [OTH CORPORATE TRAVEL CONSULTANT CURRENT DRUG THERAPY] Onset: 2 Episodic Other aftercare (1 source) intermission coordinator (current) use of anticoagulants; Translations: [SKILLED NURSING CURRNT USE ANTICOAGULANTS] Onset: 2 Episodic Other aftercare (1 source) intermission coordinator (current) use of aspirin; Translations: [CORPORATE TRAVEL CONSULTANT CURRENT USE OF ASPIRIN] Onset: 2 Episodic [...] SUBSQT FX RTN] Onset: 2 Episodic Other gastrointestinal disorders (2 sources) Dysphagia, oral phase; Translations: [Dysphagia, oral phase] Onset: 5 Episodic Other lower respiratory disease (2 sources) Other forms of dyspnea; Translations: [Other forms of dyspnea] Onset: 4 Episodic Other non-traumatic joint disorders [...] Test Name Value Interpretation Reference Range Facility Orders Onlyon 10-19-2024 Orders Only [facility] 36on 10-10-[address] Shirlene lopez would like patient seen to discuss afib ablation. Msg left appt is scheduled October 16 at 2:40 pm [facility] 36on 09-26-2024 36 Lakisha calls to confi rm amiodarone dose. Dr. Stock writes he is decreasing the dose to 100 mg daily. Lakisha notified. They don't need any medication refills [facility] Follow-Upon 09-25-2024 Follow-Up [facility] Consulton 09-19-2024 Consult [facility] Orders Onlyon 09-18-2024 Orders Only [facility] 36on 09-05-2024 36 [facility] Telephoneon 09-05-2024 Telephone [facility] 30on 09-04-2024 30 [facility] 30 [facility] APTTon 09-04-2024 ACTIVATED PARTIAL THROMBOPLASTIN TIME IN PPP BY COAGULATION ASSAY 83.1 Seconds High 25.0-35.0 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: Check aPTT every 6 hours while on heparin infusion, or per protocol. Result Comment: Clin ical significance of the APTT is questionable in the presence of heparin. Performed By: #### L [id number] ####[facility] ([facility])[address] [place] [address] DSon 09-04-[address] [facility] 30on 09-03-[address] [facility] APTTon 09-03-2024 ACTIVATED PARTIAL THROMBOPLASTIN TIME IN PPP BY COAGULATION ASSAY 72.6 Seconds High 25.0-35.0 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: Check aPTT every 6 hours while on heparin infusion, or per protocol. Result Comment: Clin ical significance of the APTT is questionable in the presence of heparin. Performed By: #### L [id number] ####[facility] [[email or web address] ([facility])[address] [place] [address] ACTIVATED PARTIAL THROMBOPLASTIN TIME IN PPP BY COAGULATION ASSAY 120.1 Seconds High 25.0-35.0 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: Check aPTT every 6 hours while on heparin infusion, or per protocol. Result Comment: Clin ical significance of the APTT is questionable in the presence of heparin. Performed By: #### L [id number] ####[facility] [[email or web address] ([facility])[address] [place] [address] ACTIVATED PARTIAL THROMBOPLASTIN TIME IN PPP BY COAGULATION ASSAY 42.3 Seconds High 25.0-35.0 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: Basel ine aPTT before initiating heparin infusion. Result Comment: Clin ical significance of the APTT is questionable in the presence of heparin. Performed By: #### L [id number] ####[facility] [[email or web address] ([facility])[address] [place] [address] BASIC METABOLIC PANELon 08-07 Anion gap [Moles/Vol] 8 mmol/L Normal 7-20 [facility] Comment on above: Performed By: #### L AB15 ####[facility] [[email or web address] ([facility])[address] [place] [address] Calcium [Mass/Vol] 8.1 mg/dL Low 8.6-10.3 [facility] Comment on above: Performed By: #### L [id number] ####[facility] [[email or web address] ([facility])[address] [place] [address] Chloride [Moles/Vol] 106 mmol/L Normal 98-107 [facility] Comment on above: Performed By: #### L [id number] ####[facility] [[email or web address] ([facility])[address] [place] [address] CO2 [Moles/Vol] 28 mmol/L Normal 21-31 [facility] Comment on above: Performed By: #### L [id number] ####[facility] [[email or web address] ([facility])[address] [place] [address] Creatinine [Mass/Vol] 0.88 mg/dL Normal 0.70-1.30 [facility] Comment on above: Performed By: #### L AB15 ####[facility] [[email or web address] ([facility])[address] [place] [address] GLOMERULAR FILTRATION RATE ML/MIN/1.73 SQ M.PREDICTED 85.9 mL/min/1.73m*2 Normal >60.0 [facility] Comment on above: Result Comment: [facility]???s estimated glomerular filtration rate (eGFR) will [...] of individuals. Performed By: #### L [id number] ####[facility] [[email or web address] ([facility])[address] [place] [address] Glucose [Mass/Vol] 109 mg/dL High 70-100 [facility] Comment on above: Performed By: #### L [id number] ####[facility] [[email or web address] LAB ([facility])[address] [place] [address] Potassium [Moles/Vol] 4.2 mmol/L Normal 3.5-5.1 [facility] Comment on above: Performed By: #### L AB15 ####[facility] ([facility])[address] [place] [address] Sodium [Moles/Vol] 138 mmol/L Normal 136-145 [facility] Comment on above: Performed By: #### L [id number] ####[facility] [[email or web address] LAB ([facility])[address] [place] [address] Urea nitrogen [Mass/Vol] 16 mg/dL Normal 7-25 [facility] Comment on above: Performed By: #### L [id number] ####[facility] [[email or web address] ([facility])[address] [place] [address] UREA NITROGEN/CREATININE (MASS RATIO) IN SER/PLAS 18.[address] [facility] Comment on above: Performed By: #### L [id number] ####[facility] [[email or web address] LAB ([facility] [address] CBCon 09-03-2024 Erythrocyte distribution width (RBC) [Ratio] 13.6 % Normal 11.5-15.0 [facility] Comment on above: Performed By: #### L [id number] ####[facility] [[email or web address] LAB ([facility] [place] [address] ERYTHROCYTE MEAN CORPUSCULAR HEMOGLOBIN CONCENTRATION (G/DL) BY AUTOMATED 32.1 g/dL Normal 32.0-35.0 [facility] Comment on above: Performed By: #### L [id number] ####[facility] [[email or web address] LAB (BEAKER)[address], [place] [address] Hematocrit (Bld) [Volume fraction] 31.8 % Low 39.0-50.0 [facility] Comment on above: Performed By: #### L [id number] ####[facility] [[email or web address] LAB (BEAKER)[address], [place] [address] Hemoglobin (Bld) [Mass/Vol] 10.2 g/dL Low 13.0-17.0 [facility] Comment on above: Performed By: #### L [id number] ####[facility] [[email or web address] LAB (BEAKER)[address] [place] [address] MCH (RBC) [Entitic mass] 30.2 pg Normal 27.0-33.0 [facility] Comment on above: Performed By: #### L [id number] ####[facility] [[email or web address] LAB ([facility])[address] [place] [address] MCV (RBC) [Entitic vol] 94.1 fL Normal 82.0-98.0 [facility] Comment on above: Performed By: #### L [id number] ####[facility] [[email or web address] LAB ([facility])[address] [place] [address] PLATELETS (10*3/UL) IN BLOOD AUTOMATED COUNT 154 10*3/uL Normal 150-400 [facility] Comment on above: Performed By: #### L [id number] ####[facility] [[email or web address] LAB ([facility])[address] [place] [address] RBC (Bld) [#/Vol] 3.38 10*6/uL Low 4.20-5.70 [facility] Comment on above: Performed By: #### L [id number] ####[facility] [[email or web address] LAB ([facility])[address] [place] [address] WBC (Bld) [#/Vol] 9.73 10*3/uL Normal 4.00-10.60 [facility] Comment on above: Performed By: #### L [id number] ####[facility] [[email or web address] LAB ([facility])[address] [place] [address] CONSULTon 09-03-[address] [facility] HIGH SENSITIVITY TROPONIN Io n 09-03-2024 HS TROPONIN I (NG/L) 89 ng/L Critically high <20 [facility] Comment on above: Performed By: #### L [id number] ####[facility] [[email or web address] LAB ([facility] [place] [address] HS TROPONIN I (NG/L) 123 ng/L Critically high <20 [facility] Comment on above: Performed By: #### L [id number] ####[facility] [[email or web address] LAB ([facility])[address] [place] [address] MAGNESIUMon 09-03-2024 Magnesium [Mass/Vol] 1.8 mg/dL Low 1.9-2.7 [facility] Comment on above: Performed By: #### L [id number] ####[facility] ([facility])[address] [place] [address] 30on 09-02-[address] [facility] Basophils Auto (Bld) [#/Vol] Ordered By: Raul Chadwick on 09-02-2024 Basophils (Bld) [#/Vol] 0.0 10 3/uL 0.0-0.1 [facility] Basophils/100 WBC Auto (Bld) Ordered By: Raul Chadwick on 09-02-2024 Basophils/100 WBC (Bld) 0.3 % 0.2-2.0 [facility] Eosinophils/100 WBC Auto (Bl d)Ordered By: Raul Chadwick on 09-02-2024 Eosinophils/100 WBC (Bld) 0.8 % Low 0.9-7.0 [facility] Erythrocyte distribution wid th Auto (RBC) [Ratio]Ordered By: Raul Chadwick on 09-02-2024 Erythrocyte distribution width (RBC) [Ratio] 13.5 % 11.0-15.0 [facility] Estimated glomerular filtrat ion rate (GFR) non- AmericanOrdered By: Raul Chadwick on 09-02-2024 GFR/1.73 sq M.predicted among non-blacks MDRD (S/P/Bld) [Vol rate/Area] mL/min/{1.73_m2} >=60 mL/min/1.7 3m 2 [facility] HPon 09-02-2024 HP [facility] Hematocrit Auto (Bld) [Volum e fraction]Ordered By: Raul Chadwick on 09-02-2024 Hematocrit (Bld) [Volume fraction] 34.2 % Low 42.0-54.0 [facility] Hemoglobin [Mass/volume] in BloodOrdered By: Raul Chadwick on 09-02-2024 Hemoglobin (Bld) [Mass/Vol] 11.2 g/dL Low 14.0-18.0 [facility] Laboratory - Chemistry and C hemistry - challengeOrdered By: Raul Chadwick on 09-02-2024 Calcium [Mass/Vol] 8.6 mg/dL 8.5-10.1 [facility] Chloride [Moles/Vol] 107 mmol/L 98-107 [facility] CO2 [Moles/Vol] 25.8 mmol/L 21.0-32.0 [facility] Creatinine [Mass/Vol] 0.87 mg/dL 0.70-1.[address] [facility] GFR/1.73 sq M.predicted MDRD (S/P/Bld) [Vol rate/Area] mL/min/{1.73_m2} >=60 mL/min/1.7 3m 2 [facility] Glucose [Mass/Vol] 168 mg/dL High 74-106 [facility] Potassium [Moles/Vol] 4.3 mmol/L 3.5-5.[address] [facility] Sodium [Moles/Vol] 144 mmol/L 136-145 [facility] Urea nitrogen [Mass/Vol] 20.0 mg/dL High 7.0-18.0 [facility] Urea nitrogen/Creatinine [Mass ratio] 23.0 mg/mg [facility] Laboratory - Hematology and Cell countsOrdered By: Raul Chadwick on 09-02-2024 Immature granulocytes/100 WBC (Bld) 0.3 % 0.0-0.5 [facility] Leukocytes [#/volume] correc shyann for nucleated erythrocytes in Blood by Automated counOrdered By: Raul Chadwick on 09-02-2024 WBC corrected for nucl RBC Auto (Bld) [#/Vol] 7.8 10 3/uL 4.0-11.0 [facility] Lymphocytes Auto (Bld) [#/Vo l]Ordered By: Raul Chadwick on 09-02-2024 Lymphocytes (Bld) [#/Vol] 1.2 10 3/uL 1.2-3.8 [facility] Lymphocytes/100 WBC Auto (Bl d)Ordered By: Raul Chadwick on 09-02-2024 Lymphocytes/100 WBC (Bld) 15.2 % Low 20.5-60.0 [facility] MCH Auto (RBC) [Entitic mass ]Ordered By: Raul Chadwick on 09-02-2024 MCH (RBC) [Entitic mass] 30.7 pg 25.9-34.0 [facility] MCHC Auto (RBC) [Mass/Vol]Or dered By: Raul Chadwick on 09-02-2024 MCHC (RBC) [Mass/Vol] 32.7 g/dL 29.9-35.[address] [facility] MCV Auto (RBC) [Entitic vol] Ordered By: Raul Chadwick on 09-02-2024 MCV (RBC) [Entitic vol] 93.7 fL 80.0-94.0 [facility] Monocytes Auto (Bld) [#/Vol] Ordered By: Raul Chadwick on 09-02-2024 Monocytes (Bld) [#/Vol] 0.7 10 3/uL 0.3-0.8 [facility] Monocytes/100 WBC Auto (Bld) Ordered By: Raul Chadwick on 09-02-2024 Monocytes/100 WBC (Bld) 9.1 % 1.7-12.0 [facility] Neutrophils Auto (Bld) [#/Vo l]Ordered By: Raul Chadwick on 09-02-2024 Neutrophils (Bld) [#/Vol] 5.8 10 3/uL 1.4-6.5 [facility] Neutrophils/100 WBC Auto (Bl d)Ordered By: Raul Chadwick on 09-02-2024 Neutrophils/100 WBC (Bld) 74.3 % 43.0-75.0 [facility] No Panel InformationOrdered By: Raul Chadwick on 09-02-2024 Troponin I High Sensitivity 126.5 pg/mL Critically high 4.0-76.1 [facility] Comment on above: RESULTS CALLED TO ARIELLA POLLACK RNCUT-OFF POINTS HAVE BEEN ESTABLISHED BASED ON THE FOURTHUNIVERSAL DEFINITION OF MYOCARDIAL INFARCTION. THE UPPERREFERENCE LIMIT (URL) OF TROPONIN, DEFINED THE 99THPERCENTILE OF cTnI DISTRIBUTION IN A REFERENCE POPULATION,HAS BEEN CONFIRMED THE DECISION THRESHOLD FOR MIDIAGNOSIS.99TH PERCENTILE = 76.2 PG/MLNOTE: HIGH-SENSITIVITY TROPONIN ASSAY IS NOT INTENDED TO BEUSED IN ISOLATION BUT SHOULD BE INTERPRETED IN CONJUNCTIONWITH OTHER DIAGNOSTIC AND CLINICAL INFORMATION. Eosinophils # (Auto) 0.1 10 3/uL 0.0-0.[address] [facility] Immature Granulocyte # (Auto) 0.02 10 3/uL 0.00-0.03 [facility] Platelet mean volume Auto (B ld) [Entitic vol]Ordered By: Raul Chadwick on 09-02-2024 Platelet mean volume (Bld) [Entitic vol] 10.8 fL 9.5-13.5 [facility] Platelets Auto (Bld) [#/Vol] Ordered By: Raul Chadwick on 09-02-2024 Platelets (Bld) [#/Vol] 157 10 3/uL 150-450 [facility] RBC Auto (Bld) [#/Vol]Ordere d By: Raul Chadwick on 09-02-2024 RBC (Bld) [#/Vol] 3.65 10 6/uL Low 4.70-6.10 [facility] Serum or plasma anion gap de terminationOrdered By: Raul Chadwick on 09-02-2024 Anion gap [Moles/Vol] 15.5 mmol/L [facility] Basophils Auto (Bld) [#/Vol] Ordered By: Raul Chadwick on 09-01-2024 Basophils (Bld) [#/Vol] 0.0 10 3/uL 0.0-0.1 [facility] Basophils/100 WBC Auto (Bld) Ordered By: Raul Chadwick on 09-01-2024 Basophils/100 WBC (Bld) 0.4 % 0.2-2.0 [facility] Eosinophils/100 WBC Auto (Bl d)Ordered By: Raul Chadwick on 09-01-2024 Eosinophils/100 WBC (Bld) 0.5 % Low 0.9-7.0 [facility] Erythrocyte distribution wid th Auto (RBC) [Ratio]Ordered By: Raul Chadwick on 09-01-2024 Erythrocyte distribution width (RBC) [Ratio] 13.5 % 11.0-15.0 [facility] Estimated glomerular filtrat ion rate (GFR) non- AmericanOrdered By: Raul Chadwick on 09-01-2024 GFR/1.73 sq M.predicted among non-blacks MDRD (S/P/Bld) [Vol rate/Area] mL/min/{1.73_m2} >=60 mL/min/1.[address] [place] [address] Hematocrit Auto (Bld) [Volum e fraction]Ordered By: Raul Chadwick on 09-01-2024 Hematocrit (Bld) [Volume fraction] 36.8 % Low 42.0-54.0 [facility] Hemoglobin [Mass/volume] in BloodOrdered By: Raul Chadwick on 09-01-2024 Hemoglobin (Bld) [Mass/Vol] 11.8 g/dL Low 14.0-18.0 [facility] Laboratory - Chemistry and C hemistry - challengeOrdered By: Raul Chadwick on 09-01-2024 Calcium [Mass/Vol] 8.8 mg/dL 8.5-10.1 [facility] Chloride [Moles/Vol] 108 mmol/L High 98-107 [facility] CO2 [Moles/Vol] 25.1 mmol/L 21.0-32.0 [facility] Creatinine [Mass/Vol] 0.86 mg/dL 0.70-1.[address] [facility] GFR/1.73 sq M.predicted MDRD (S/P/Bld) [Vol rate/Area] mL/min/{1.73_m2} >=60 mL/min/1.[address] [place] [address] Glucose [Mass/Vol] 127 mg/dL High 74-106 [facility] Potassium [Moles/Vol] 4.0 mmol/L 3.5-5.[address] [facility] Sodium [Moles/Vol] 145 mmol/L 136-145 [facility] Urea nitrogen [Mass/Vol] 20.0 mg/dL High 7.0-18.0 [facility] Urea nitrogen/Creatinine [Mass ratio] 23.3 mg/mg [facility] Laboratory - Hematology and Cell countsOrdered By: Raul Chadwick on 09-01-2024 Immature granulocytes/100 WBC (Bld) 0.3 % 0.0-0.5 [facility] Leukocytes [#/volume] correc shyann for nucleated erythrocytes in Blood by Automated counOrdered By: Raul Chadwick on 09-01-2024 WBC corrected for nucl RBC Auto (Bld) [#/Vol] 9.6 10 3/uL 4.0-11.0 [facility] Lymphocytes Auto (Bld) [#/Vo l]Ordered By: Raul Chadwick on 09-01-2024 Lymphocytes (Bld) [#/Vol] 1.7 10 3/uL 1.2-3.8 [facility] Lymphocytes/100 WBC Auto (Bl d)Ordered By: Raul Chadwick on 09-01-2024 Lymphocytes/100 WBC (Bld) 17.9 % Low 20.5-60.0 [facility] MCH Auto (RBC) [Entitic mass ]Ordered By: Raul Chadwick on 09-01-2024 MCH (RBC) [Entitic mass] 30.0 pg 25.9-34.0 [facility] MCHC Auto (RBC) [Mass/Vol]Or dered By: Raul Chadwick on 09-01-2024 MCHC (RBC) [Mass/Vol] 32.1 g/dL 29.9-35.[address] [facility] MCV Auto (RBC) [Entitic vol] Ordered By: Raul Chadwick on 09-01-2024 MCV (RBC) [Entitic vol] 93.6 fL 80.0-94.0 [facility] Monocytes Auto (Bld) [#/Vol] Ordered By: Raul Chadwick on 09-01-2024 Monocytes (Bld) [#/Vol] 0.9 10 3/uL High 0.3-0.8 [facility] Monocytes/100 WBC Auto (Bld) Ordered By: Raul Chadwick on 09-01-2024 Monocytes/100 WBC (Bld) 9.4 % 1.7-12.0 [facility] Neutrophils Auto (Bld) [#/Vo l]Ordered By: Raul Chadwick on 09-01-2024 Neutrophils (Bld) [#/Vol] 6.9 10 3/uL High 1.4-6.5 [facility] Neutrophils/100 WBC Auto (Bl d)Ordered By: Raul Chadwick on 09-01-2024 Neutrophils/100 WBC (Bld) 71.5 % 43.0-75.0 [facility] No Panel InformationOrdered By: Raul Chadwick on 09-01-2024 Eosinophils # (Auto) 0.1 10 3/uL 0.0-0.[address] [facility] Immature Granulocyte # (Auto) 0.03 10 3/uL 0.00-0.03 [facility] Troponin I High Sensitivity 31.5 pg/mL 4.0-76.1 [facility] Comment on above: CUT-OFF POINTS HAVE BEEN ESTABLISHED BASED ON THE [...] Auto (B ld) [Entitic vol]Ordered By: Raul Chadwick on 09-01-2024 Platelet mean volume (Bld) [Entitic vol] 10.7 fL 9.5-13.5 [facility] Platelets Auto (Bld) [#/Vol] Ordered By: Raul Chadwick on 09-01-2024 Platelets (Bld) [#/Vol] 179 10 3/uL 150-450 [facility] RBC Auto (Bld) [#/Vol]Ordere d By: Raul Chadwick on 09-01-2024 RBC (Bld) [#/Vol] 3.93 10 6/uL Low 4.70-6.10 [facility] Results Follow-Upon 09-02-19 25 Results Follow-Up Normal [facility] Serum or plasma anion gap de terminationOrdered By: Raul Chadwick on 09-01-2024 Anion gap [Moles/Vol] 15.9 mmol/L [facility] 29on 08-31-2024 29 Addended by: SAMMIE CORRAL on: 08/31/2024 07:31 PM Modules accepted: Level of Service Normal [facility] BASIC METABOLIC PANELon 08-07 Anion gap [Moles/Vol] 13 mmol/L Normal 7-20 [facility] Comment on above: Performed By: #### L [id number] ####[facility] [[email or web address]] LAB ([facility] [place] [address] Calcium [Mass/Vol] 8.9 mg/dL Normal 8.6-10.3 [facility] Comment on above: Performed By: #### L [id number] ####[facility] [[email or web address] LAB ([facility] [place] [address] Chloride [Moles/Vol] 108 mmol/L High 98-107 [facility] Comment on above: Performed By: #### L [id number] ####[facility] [[email or web address] LAB ([facility])[address] [place] [address] CO2 [Moles/Vol] 21 mmol/L Normal 21-31 [facility] Comment on above: Performed By: #### L [id number] ####[facility] [[email or web address] LAB ([facility])[address] [place] [address] Creatinine [Mass/Vol] 0.79 mg/dL Normal 0.70-1.30 [facility] Comment on above: Performed By: #### L [id number] ####[facility] [[email or web address] LAB ([facility])[address] [place] [address] GLOMERULAR FILTRATION RATE ML/MIN/1.73 SQ M.PREDICTED 88.7 mL/min/1.73m*2 Normal >60.0 [facility] Comment on above: Result Comment: [facility]???s estimated glomerular filtration rate (eGFR) will [...] of individuals. Performed By: #### L [id number] ####[facility] [[email or web address]] LAB ([facility] [place] [address] Glucose [Mass/Vol] 106 mg/dL High 70-100 [facility] Comment on above: Performed By: #### L [id number] ####[facility] [[email or web address] LAB ([facility])[address] [place] [address] Potassium [Moles/Vol] 4.4 mmol/L Normal 3.5-5.1 [facility] Comment on above: Performed By: #### L [id number] ####[facility] [[email or web address] LAB ([facility])[address] [place] [address] Sodium [Moles/Vol] 138 mmol/L Normal 136-145 [facility] Comment on above: Performed By: #### L [id number] ####[facility] [[email or web address] LAB ([facility])[address] [place] [address] Urea nitrogen [Mass/Vol] 19 mg/dL Normal 7-25 [facility] Comment on above: Performed By: #### L [id number] ####[facility] [[email or web address] LAB ([facility])[address] [place] [address] UREA NITROGEN/CREATININE (MASS RATIO) IN SER/PLAS 24.[address] [facility] Comment on above: Performed By: #### L [id number] ####[facility] [[email or web address] LAB ([facility])[address] [place] [address] CBC WITH AUTO DIFFERENTIALon 08-31-2024 Basophils (Bld) [#/Vol] 0.05 10*3/uL Normal 0.00-0.20 [facility] Comment on above: Performed By: #### L [id number] ####[facility] [[email or web address] LAB ([facility])[address] [place] [address] Basophils/100 WBC (Bld) 0.4 % Normal 0.0-1.0 [facility] Comment on above: Performed By: #### L [id number] ####[facility] [[email or web address] LAB ([facility])[address] [place] [address] Eosinophils (Bld) [#/Vol] 0.13 10*3/uL Normal 0.00-0.50 [facility] Comment on above: Performed By: #### L [id number] ####[facility] [[email or web address]] LAB (BEAKER)[address] [place] [address] Eosinophils/100 WBC (Bld) 1.1 % Normal 0.0-6.0 [facility] Comment on above: Performed By: #### L [id number] ####[facility] [[email or web address] LAB ([facility])[address] [place] [address] Erythrocyte distribution width (RBC) [Ratio] 13.4 % Normal 11.5-15.0 [facility] Comment on above: Performed By: #### L [id number] ####[facility] [[email or web address] LAB ([facility])[address] [place] [address] ERYTHROCYTE MEAN CORPUSCULAR HEMOGLOBIN CONCENTRATION (G/DL) BY AUTOMATED 31.4 g/dL Low 32.0-35.0 [facility] Comment on above: Performed By: #### L [id number] ####[facility] [[email or web address] LAB ([facility] [place] [address] Hematocrit (Bld) [Volume fraction] 37.9 % Low 39.0-50.0 [facility] Comment on above: Performed By: #### L [id number] ####[facility] [[email or web address]] LAB (BEAKER)[address] [place] [address] Hemoglobin (Bld) [Mass/Vol] 11.9 g/dL Low 13.0-17.0 [facility] Comment on above: Performed By: #### L [id number] ####[facility] [[email or web address] LAB (BEAKER)[address] [place] [address] Immature granulocytes (Bld) [#/Vol] 0.04 10*3/uL Normal 0.00-0.20 [facility] Comment on above: Performed By: #### L [id number] ####[facility] [[email or web address] LAB (BEAKER)[address] [place] [address] Immature granulocytes/100 WBC (Bld) 0.4 % Normal 0.0-1.0 [facility] Comment on above: Performed By: #### L [id number] ####[facility] ([facility] [place] [address] Lymphocytes (Bld) [#/Vol] 1.59 10*3/uL Normal 1.20-4.00 [facility] Comment on above: Performed By: #### L [id number] ####[facility] [[email or web address] LAB ([facility] [place] [address] Lymphocytes/100 WBC (Bld) 14.0 % Low 20.0-45.0 [facility] Comment on above: Performed By: #### L [id number] ####[facility] [[email or web address] ([facility] [place] [address] MCH (RBC) [Entitic mass] 29.7 pg Normal 27.0-33.0 [facility] Comment on above: Performed By: #### L [id number] ####[facility] [[email or web address] ([facility] [place] [address] MCV (RBC) [Entitic vol] 94.5 fL Normal 82.0-98.0 [facility] Comment on above: Performed By: #### L [id number] ####[facility] [[email or web address] ([facility] [place] [address] Monocytes (Bld) [#/Vol] 0.94 10*3/uL Normal 0.10-1.00 [facility] Comment on above: Performed By: #### L [id number] ####[facility] [[email or web address] ([facility] [place] [address] Monocytes/100 WBC (Bld) 8.3 % Normal 5.0-12.0 [facility] Comment on above: Performed By: #### L [id number] ####[facility] [[email or web address] ([facility] [place] [address] Neutrophils (Bld) [#/Vol] 8.58 10*3/uL High 1.60-7.60 [facility] Comment on above: Performed By: #### L [id number] ####[facility] ([facility] [place] [address] Neutrophils/100 WBC (Bld) 75.8 % High 40.0-72.0 [facility] Comment on above: Performed By: #### L [id number] ####[facility] [[email or web address] ([facility] [place] [address] NRBC (PER 100 WBCS) BY AUTOMATED COUNT 0.0 % Normal 0 [facility] Comment on above: Performed By: #### L [id number] ####[facility] [[email or web address] LAB ([facility])[address] [place] [address] PLATELETS (10*3/UL) IN BLOOD AUTOMATED COUNT 195 10*3/uL Normal 150-400 [facility] Comment on above: Performed By: #### L [id number] ####[facility] [[email or web address] ([facility])[address] [address] RBC (Bld) [#/Vol] 4.01 10*6/uL Low 4.20-5.70 [facility] Comment on above: Performed By: #### L [id number] ####[facility] [[email or web address] LAB ([facility])[address], [place] [address] WBC (Bld) [#/Vol] 11.33 10*3/uL High 4.00-10.60 [facility] Comment on above: Performed By: #### L [id number] ####[facility] [[email or web address] LAB ([facility])[address] [address] HIGH SENSITIVITY TROPONIN Io n 08-31-2024 HS TROPONIN I (NG/L) 25 ng/L High <20 [facility] Comment on above: Performed By: #### L [id number] ####[facility] [[email or web address] ([facility])[address], [place] [address] Orders Onlyon 08-31-[address] [facility] Basophils Auto (Bld) [#/Vol] Ordered By: Shailesh Dunham on 08-22-2024 Basophils (Bld) [#/Vol] 0.0 10 3/uL 0.0-0.1 [facility] Basophils/100 WBC Auto (Bld) Ordered By: Shailesh Dunham on 08-22-2024 Basophils/100 WBC (Bld) 0.6 % 0.2-2.0 [facility] Eosinophils/100 WBC Auto (Bl d)Ordered By: Shailesh Dunham on 08-22-2024 Eosinophils/100 WBC (Bld) 1.7 % 0.9-7.0 [facility] Erythrocyte distribution wid th Auto (RBC) [Ratio]Ordered By: Shailesh Dunham on 08-22-2024 Erythrocyte distribution width (RBC) [Ratio] 13.2 % 11.0-15.0 [facility] Estimated glomerular filtrat ion rate (GFR) non- AmericanOrdered By: Shailesh Dunham on 08-22-2024 GFR/1.73 sq M.predicted among non-blacks MDRD (S/P/Bld) [Vol rate/Area] mL/min/{1.73_m2} >=60 mL/min/1.7 3m 2 [facility] Globulin Calc (S) [Mass/Vol] Ordered By: Shailesh Dunham on 08-22-2024 Globulin (S) [Mass/Vol] 4.5 g/dL [facility] Hematocrit Auto (Bld) [Volum e fraction]Ordered By: Shailesh Dunham on 08-22-2024 Hematocrit (Bld) [Volume fraction] 35.1 % Low 42.0-54.0 [facility] Hemoglobin [Mass/volume] in BloodOrdered By: Shailesh Dunham on 08-22-2024 Hemoglobin (Bld) [Mass/Vol] 11.4 g/dL Low 14.0-18.0 [facility] Laboratory - Chemistry and C hemistry - challengeOrdered By: Shailesh Dunham on 08-22-2024 Albumin [Mass/Vol] 3.1 g/dL Low 3.4-5.0 [facility] ALP [Catalytic activity/Vol] 116 U/L 46-116 [facility] ALT [Catalytic activity/Vol] 16 U/L 16-63 [facility] AST [Catalytic activity/Vol] 16 U/L 15-37 [facility] Bilirubin [Mass/Vol] 0.6 mg/dL 0.2-1.0 [facility] Calcium [Mass/Vol] 9.0 mg/dL 8.5-10.1 [facility] Chloride [Moles/Vol] 103 mmol/L 98-107 [facility] CO2 [Moles/Vol] 27.9 mmol/L 21.0-32.0 [facility] Cobalamin (Vitamin B12) [Mass/Vol] 620 pg/mL 232-1245 [facility] Comment on above: Performed at: - [email or web address] [id number] Director: Stevie Leon PhD, Phone: [phone] Creatinine [Mass/Vol] 1.05 mg/dL 0.70-1.[address] [facility] Ferritin [Mass/Vol] 141.0 ng/mL 26.0-388.0 [facility] GFR/1.73 sq M.predicted MDRD (S/P/Bld) [Vol rate/Area] mL/min/{1.73_m2} >=60 mL/min/1.7 3m 2 [facility] Glucose [Mass/Vol] 158 mg/dL High 74-106 [facility] Potassium [Moles/Vol] 4.0 mmol/L 3.5-5.[address] [facility] Protein [Mass/Vol] 7.6 g/dL 6.4-8.2 [facility] Sodium [Moles/Vol] 141 mmol/L 136-145 [facility] TSH Qn 1.809 m[IU]/L 0.358-3.74 0 [facility] Urea nitrogen [Mass/Vol] 25.0 mg/dL High 7.0-18.0 [facility] Urea nitrogen/Creatinine [Mass ratio] 23.8 mg/mg [facility] Laboratory - Hematology and Cell countsOrdered By: Shailesh Dunham on 08-22-2024 Immature granulocytes/100 WBC (Bld) 0.3 % 0.0-0.5 [facility] Leukocytes [#/volume] correc shyann for nucleated erythrocytes in Blood by Automated counOrdered By: Shailesh Dunham on 08-22-2024 WBC corrected for nucl RBC Auto (Bld) [#/Vol] 6.9 10 3/uL 4.0-11.0 [facility] Lymphocytes Auto (Bld) [#/Vo l]Ordered By: Shailesh Dunham on 08-22-2024 Lymphocytes (Bld) [#/Vol] 1.1 10 3/uL Low 1.2-3.8 [facility] Lymphocytes/100 WBC Auto (Bl d)Ordered By: Shailesh Dunham on 08-22-2024 Lymphocytes/100 WBC (Bld) 15.8 % Low 20.5-60.0 [facility] MCH Auto (RBC) [Entitic mass ]Ordered By: Shailesh Dunham on 08-22-2024 MCH (RBC) [Entitic mass] 30.6 pg 25.9-34.0 [facility] MCHC Auto (RBC) [Mass/Vol]Or dered By: Shailesh Dunham on 08-22-2024 MCHC (RBC) [Mass/Vol] 32.5 g/dL 29.9-35.[address] [facility] MCV Auto (RBC) [Entitic vol] Ordered By: Shailesh Dunham on 08-22-2024 MCV (RBC) [Entitic vol] 94.4 fL High 80.0-94.0 [facility] Monocytes Auto (Bld) [#/Vol] Ordered By: Shailesh Dunham on 08-22-2024 Monocytes (Bld) [#/Vol] 0.7 10 3/uL 0.3-0.8 [facility] Monocytes/100 WBC Auto (Bld) Ordered By: Shailesh Dunham on 08-22-2024 Monocytes/100 WBC (Bld) 10.4 % 1.7-12.0 [facility] Neutrophils Auto (Bld) [#/Vo l]Ordered By: Shailesh Dunham on 08-22-2024 Neutrophils (Bld) [#/Vol] 4.9 10 3/uL 1.4-6.5 [facility] Neutrophils/100 WBC Auto (Bl d)Ordered By: Shailesh Dunham on 08-22-2024 Neutrophils/100 WBC (Bld) 71.2 % 43.0-75.0 [facility] No Panel InformationOrdered By: Shailesh Dunham on 08-22-2024 Eosinophils # (Auto) 0.1 10 3/uL 0.0-0.[address] [facility] Folate 47.20 ng/mL 8.60-58.90 [facility] Immature Granulocyte # (Auto) 0.02 10 3/uL 0.00-0.03 [facility] Platelet mean volume Auto (B ld) [Entitic vol]Ordered By: Shailesh Dunham on 08-22-2024 Platelet mean volume (Bld) [Entitic vol] 10.2 fL 9.5-13.5 [facility] Platelets Auto (Bld) [#/Vol] Ordered By: Shailesh Dunham on 08-22-2024 Platelets (Bld) [#/Vol] 181 10 3/uL 150-450 [facility] RBC Auto (Bld) [#/Vol]Ordere d By: Shailesh Dunham on 08-22-2024 RBC (Bld) [#/Vol] 3.72 10 6/uL Low 4.70-6.10 [facility] Serum or plasma albumin/glob ulin mass ratioOrdered By: Shailesh Dunham on 08-22-2024 Albumin/Globulin [Mass ratio] 0.7 {ratio} [facility] Serum or plasma anion gap de terminationOrdered By: Shailesh Dunham on 08-22-2024 Anion gap [Moles/Vol] 14.1 mmol/L [facility] Follow-Upon 08-15-2024 Follow-Up Normal [facility] Follow-Upon 08-10-2024 Follow-Up Normal [facility] 30on 08-06-[address] [facility] BASIC METABOLIC PANELon 06-0 Anion gap [Moles/Vol] 9 mmol/L Normal 7-20 [facility] Comment on above: Performed By: #### L [id number] ####[facility] [[email or web address]] LAB (BEAKER)[address] [place] [address] Calcium [Mass/Vol] 7.9 mg/dL Low 8.6-10.3 [facility] Comment on above: Performed By: #### L [id number] ####[facility] [[email or web address] LAB (BEAKER)[address] [place] [address] Chloride [Moles/Vol] 104 mmol/L Normal 98-107 [facility] Comment on above: Performed By: #### L [id number] ####[facility] [[email or web address] LAB ([facility])[address] [place] [address] CO2 [Moles/Vol] 27 mmol/L Normal 21-31 [facility] Comment on above: Performed By: #### L [id number] ####[facility] [[email or web address] LAB ([facility])[address] [place] [address] Creatinine [Mass/Vol] 0.55 mg/dL Low 0.70-1.30 [facility] Comment on above: Performed By: #### L [id number] ####[facility] [[email or web address] LAB ([facility])[address] [place] [address] GLOMERULAR FILTRATION RATE ML/MIN/1.73 SQ M.PREDICTED 98.9 mL/min/1.73m*2 Normal >60.0 [facility] Comment on above: Result Comment: [facility]???s estimated glomerular filtration rate (eGFR) will [...] of individuals. Performed By: #### L [id number] ####[facility] [[email or web address] LAB ([facility])[address] [place] [address] Glucose [Mass/Vol] 107 mg/dL High 70-100 [facility] Comment on above: Performed By: #### L [id number] ####[facility] [[email or web address] LAB ([facility])[address] [place] [address] Potassium [Moles/Vol] 4.1 mmol/L Normal 3.5-5.1 [facility] Comment on above: Performed By: #### L [id number] ####[facility] [[email or web address] LAB ([facility])[address] [place] [address] Sodium [Moles/Vol] 136 mmol/L Normal 136-145 [facility] Comment on above: Performed By: #### L [id number] ####[facility] [[email or web address] LAB ([facility])[address] [place] [address] Urea nitrogen [Mass/Vol] 22 mg/dL Normal 7-25 [facility] Comment on above: Performed By: #### L [id number] ####[facility] [[email or web address] LAB ([facility])[address] [place] [address] UREA NITROGEN/CREATININE (MASS RATIO) IN SER/PLAS 40.[address] [facility] Comment on above: Performed By: #### L [id number] ####[facility] [[email or web address] LAB ([facility])[address] [place] [address] CBC WITH AUTO DIFFERENTIALon 08-06-2024 Basophils (Bld) [#/Vol] 0.03 10*3/uL Normal 0.00-0.20 [facility] Comment on above: Performed By: #### L [id number] ####[facility] [[email or web address]] LAB ([facility])[address] [place] [address] Basophils/100 WBC (Bld) 0.4 % Normal 0.0-1.0 [facility] Comment on above: Performed By: #### L [id number] ####[facility] [[email or web address] LAB ([facility])[address] [place] [address] Eosinophils (Bld) [#/Vol] 0.15 10*3/uL Normal 0.00-0.50 [facility] Comment on above: Performed By: #### L [id number] ####[facility] [[email or web address] LAB ([facility])[address] [place] [address] Eosinophils/100 WBC (Bld) 1.8 % Normal 0.0-6.0 [facility] Comment on above: Performed By: #### L [id number] ####[facility] [[email or web address]] LAB ([facility])[address] [place] [address] Erythrocyte distribution width (RBC) [Ratio] 13.0 % Normal 11.5-15.0 [facility] Comment on above: Performed By: #### L [id number] ####[facility] [[email or web address]] LAB (BEAKER)[address] [place] [address] ERYTHROCYTE MEAN CORPUSCULAR HEMOGLOBIN CONCENTRATION (G/DL) BY AUTOMATED 32.1 g/dL Normal 32.0-35.0 [facility] Comment on above: Performed By: #### L [id number] ####[facility] [[email or web address]] LAB (BEAKER)[address] [place] [address] Hematocrit (Bld) [Volume fraction] 28.0 % Low 39.0-50.0 [facility] Comment on above: Performed By: #### L [id number] ####[facility] [[email or web address]] LAB (BEAKER)[address] [place] [address] Hemoglobin (Bld) [Mass/Vol] 9.0 g/dL Low 13.0-17.0 [facility] Comment on above: Performed By: #### L [id number] ####[facility] [[email or web address]] LAB (BEAKER)[address] [place] [address] Immature granulocytes (Bld) [#/Vol] 0.04 10*3/uL Normal 0.00-0.20 [facility] Comment on above: Performed By: #### L [id number] ####[facility] [[email or web address]] LAB (BEAKER)[address] [place] [address] Immature granulocytes/100 WBC (Bld) 0.5 % Normal 0.0-1.0 [facility] Comment on above: Performed By: #### L [id number] ####[facility] [[email or web address]] LAB (BEAKER)[address] [place] [address] Lymphocytes (Bld) [#/Vol] 1.37 10*3/uL Normal 1.20-4.00 [facility] Comment on above: Performed By: #### L [id number] ####[facility] [[email or web address]] LAB (BEAKER)[address] [place] [address] Lymphocytes/100 WBC (Bld) 16.6 % Low 20.0-45.0 [facility] Comment on above: Performed By: #### L [id number] ####[facility] (BEAKER)[address] [place] [address] MCH (RBC) [Entitic mass] 29.7 pg Normal 27.0-33.0 [facility] Comment on above: Performed By: #### L [id number] ####[facility] [[email or web address]] LAB (BEAKER)[address] [place] [address] MCV (RBC) [Entitic vol] 92.4 fL Normal 82.0-98.0 [facility] Comment on above: Performed By: #### L [id number] ####[facility] [[email or web address]] LAB (BEAKER)[address] [place] [address] Monocytes (Bld) [#/Vol] 0.92 10*3/uL Normal 0.10-1.00 [facility] Comment on above: Performed By: #### L [id number] ####[facility] [[email or web address]] LAB (BEAKER)[address] [place] [address] Monocytes/100 WBC (Bld) 11.2 % Normal 5.0-12.0 [facility] Comment on above: Performed By: #### L [id number] ####[facility] [[email or web address]] LAB (BEAKER)[address] [place] [address] Neutrophils (Bld) [#/Vol] 5.73 10*3/uL Normal 1.60-7.60 [facility] Comment on above: Performed By: #### L [id number] ####[facility] [[email or web address]] LAB (BEAKER)[address] [place] [address] Neutrophils/100 WBC (Bld) 69.5 % Normal 40.0-72.0 [facility] Comment on above: Performed By: #### L [id number] ####[facility] [[email or web address]] LAB (BEAKER)[address] [place] [address] NRBC (PER 100 WBCS) BY AUTOMATED COUNT 0.0 % Normal 0 [facility] Comment on above: Performed By: #### L [id number] ####[facility] [[email or web address]] LAB (BEAKER)[address] [place] [address] PLATELETS (10*3/UL) IN BLOOD AUTOMATED COUNT 165 10*3/uL Normal 150-400 [facility] Comment on above: Performed By: #### L [id number] ####[facility] [[email or web address]] LAB ([facility] [place] [address] RBC (Bld) [#/Vol] 3.03 10*6/uL Low 4.20-5.70 [facility] Comment on above: Performed By: #### L [id number] ####[facility] [[email or web address] LAB ([facility] [place] [address] WBC (Bld) [#/Vol] 8.24 10*3/uL Normal 4.00-10.60 [facility] Comment on above: Performed By: #### L [id number] ####[facility] [[email or web address]] LAB (BEAKER)[address] [place] [address] DSon 08-06-2024 DS [facility] MAGNESIUMon 08-06-2024 Magnesium [Mass/Vol] 1.7 mg/dL Low 1.9-2.7 [facility] Comment on above: Performed By: #### L [id number] ####[facility] [[email or web address] LAB ([facility] [address] 30on 08-05-[address] [facility] [address] [facility] BASIC METABOLIC PANELon 05-3 Anion gap [Moles/Vol] 9 mmol/L Normal 7-20 [facility] Comment on above: Performed By: #### L [id number] ####[facility] [[email or web address]] LAB (BEAKER)[address] [place] [address] Calcium [Mass/Vol] 7.8 mg/dL Low 8.6-10.3 [facility] Comment on above: Performed By: #### L [id number] ####[facility] [[email or web address] LAB (BEAKER)[address] [place] [address] Chloride [Moles/Vol] 105 mmol/L Normal 98-107 [facility] Comment on above: Performed By: #### L [id number] ####[facility] [[email or web address] LAB ([facility])[address] [place] [address] CO2 [Moles/Vol] 27 mmol/L Normal 21-31 [facility] Comment on above: Performed By: #### L [id number] ####[facility] [[email or web address] LAB ([facility])[address] [place] [address] Creatinine [Mass/Vol] 0.49 mg/dL Low 0.70-1.30 [facility] Comment on above: Performed By: #### L [id number] ####[facility] [[email or web address] LAB ([facility])[address] [place] [address] GLOMERULAR FILTRATION RATE ML/MIN/1.73 SQ M.PREDICTED 102.5 mL/min/1.73m*2 Normal >60.0 [facility] Comment on above: Result Comment: [facility]???s estimated glomerular filtration rate (eGFR) will [...] of individuals. Performed By: #### L [id number] ####[facility] [[email or web address]] LAB ([facility])[address] [place] [address] Glucose [Mass/Vol] 107 mg/dL High 70-100 [facility] Comment on above: Performed By: #### L [id number] ####[facility] [[email or web address]] LAB ([facility] [place] [address] Potassium [Moles/Vol] 4.0 mmol/L Normal 3.5-5.1 [facility] Comment on above: Performed By: #### L [id number] ####[facility] [[email or web address] LAB ([facility])[address] [place] [address] Sodium [Moles/Vol] 137 mmol/L Normal 136-145 [facility] Comment on above: Performed By: #### L [id number] ####[facility] [[email or web address] LAB ([facility])[address] [place] [address] Urea nitrogen [Mass/Vol] 23 mg/dL Normal 7-25 [facility] Comment on above: Performed By: #### L [id number] ####[facility] [[email or web address] LAB ([facility])[address] [place] [address] UREA NITROGEN/CREATININE (MASS RATIO) IN SER/PLAS 46.[address] [facility] Comment on above: Performed By: #### L [id number] ####[facility] [[email or web address] LAB ([facility])[address] [place] [address] CBC WITH AUTO DIFFERENTIALon 08-05-2024 Basophils (Bld) [#/Vol] 0.02 10*3/uL Normal 0.00-0.20 [facility] Comment on above: Performed By: #### L [id number] ####[facility] [[email or web address]] LAB ([facility])[address] [place] [address] Basophils/100 WBC (Bld) 0.2 % Normal 0.0-1.0 [facility] Comment on above: Performed By: #### L [id number] ####[facility] [[email or web address] LAB ([facility])[address] [place] [address] Eosinophils (Bld) [#/Vol] 0.09 10*3/uL Normal 0.00-0.50 [facility] Comment on above: Performed By: #### L [id number] ####[facility] [[email or web address]] LAB ([facility])[address] [place] [address] Eosinophils/100 WBC (Bld) 1.0 % Normal 0.0-6.0 [facility] Comment on above: Performed By: #### L [id number] ####[facility] [[email or web address] LAB ([facility] [place] [address] Erythrocyte distribution width (RBC) [Ratio] 13.2 % Normal 11.5-15.0 [facility] Comment on above: Performed By: #### L [id number] ####[facility] [[email or web address]] LAB (BEAKER)[address] [place] [address] ERYTHROCYTE MEAN CORPUSCULAR HEMOGLOBIN CONCENTRATION (G/DL) BY AUTOMATED 32.0 g/dL Normal 32.0-35.0 [facility] Comment on above: Performed By: #### L [id number] ####[facility] [[email or web address]] LAB (BEAKER)[address] [place] [address] Hematocrit (Bld) [Volume fraction] 26.6 % Low 39.0-50.0 [facility] Comment on above: Performed By: #### L [id number] ####[facility] [[email or web address]] LAB (BEAKER)[address] [place] [address] Hemoglobin (Bld) [Mass/Vol] 8.5 g/dL Low 13.0-17.0 [facility] Comment on above: Performed By: #### L [id number] ####[facility] [[email or web address]] LAB (BEAKER)[address] [place] [address] Immature granulocytes (Bld) [#/Vol] 0.02 10*3/uL Normal 0.00-0.20 [facility] Comment on above: Performed By: #### L [id number] ####[facility] [[email or web address]] LAB (BEAKER)[address] [place] [address] Immature granulocytes/100 WBC (Bld) 0.2 % Normal 0.0-1.0 [facility] Comment on above: Performed By: #### L [id number] ####[facility] [[email or web address]] LAB (BEAKER)[address] [place] [address] Lymphocytes (Bld) [#/Vol] 1.29 10*3/uL Normal 1.20-4.00 [facility] Comment on above: Performed By: #### L [id number] ####[facility] [[email or web address]] LAB (BEAKER)[address] [place] [address] Lymphocytes/100 WBC (Bld) 14.2 % Low 20.0-45.0 [facility] Comment on above: Performed By: #### L [id number] ####[facility] (BEAKER)[address] [place] [address] MCH (RBC) [Entitic mass] 29.9 pg Normal 27.0-33.0 [facility] Comment on above: Performed By: #### L [id number] ####[facility] [[email or web address]] LAB (BEAKER)[address] [place] [address] MCV (RBC) [Entitic vol] 93.7 fL Normal 82.0-98.0 [facility] Comment on above: Performed By: #### L [id number] ####[facility] [[email or web address]] LAB (BEAKER)[address] [place] [address] Monocytes (Bld) [#/Vol] 0.90 10*3/uL Normal 0.10-1.00 [facility] Comment on above: Performed By: #### L [id number] ####[facility] [[email or web address] LAB (BEAKER)[address] [place] [address] Monocytes/100 WBC (Bld) 9.9 % Normal 5.0-12.0 [facility] Comment on above: Performed By: #### L [id number] ####[facility] [[email or web address] LAB (BEAKER)[address] [place] [address] Neutrophils (Bld) [#/Vol] 6.75 10*3/uL Normal 1.60-7.60 [facility] Comment on above: Performed By: #### L [id number] ####[facility] [[email or web address]] LAB (BEAKER)[address] [place] [address] Neutrophils/100 WBC (Bld) 74.5 % High 40.0-72.0 [facility] Comment on above: Performed By: #### L [id number] ####[facility] [[email or web address]] LAB (BEAKER)[address] [place] [address] NRBC (PER 100 WBCS) BY AUTOMATED COUNT 0.0 % Normal 0 [facility] Comment on above: Performed By: #### L [id number] ####[facility] [[email or web address]] LAB (BEAKER)[address] [place] [address] PLATELETS (10*3/UL) IN BLOOD AUTOMATED COUNT 142 10*3/uL Low 150-400 [facility] Comment on above: Performed By: #### L [id number] ####[facility] [[email or web address]] LAB ([facility])[address] [place] [address] RBC (Bld) [#/Vol] 2.84 10*6/uL Low 4.20-5.70 [facility] Comment on above: Performed By: #### L [id number] ####[facility] [[email or web address]] LAB ([facility])[address] [place] [address] WBC (Bld) [#/Vol] 9.07 10*3/uL Normal 4.00-10.60 [facility] Comment on above: Performed By: #### L [id number] ####[facility] [[email or web address]] LAB ([facility])[address] [place] [address] OCCULT BLOOD X 1, STOOLon HEMOGLOBIN GASTROINTESTINAL PRESENCE IN STOOL Negative Normal Negative, None Detected [facility] Comment on above: Performed By: #### L [id number] ####[facility] [[email or web address] ([facility] [facility], [place] [address] 30on 08-04-[address] [facility] [address] [facility] BASIC METABOLIC PANELon 053 Anion gap [Moles/Vol] 10 mmol/L Normal 7-20 [facility] Comment on above: Performed By: #### L [id number] ####[facility] [[email or web address] ([facility] [place] [address] Calcium [Mass/Vol] 8.1 mg/dL Low 8.6-10.3 [facility] Comment on above: Performed By: #### L [id number] ####[facility] [[email or web address] LAB (BEAKER)[address] [place] [address] Chloride [Moles/Vol] 104 mmol/L Normal 98-107 [facility] Comment on above: Performed By: #### L [id number] ####[facility] [[email or web address] ([facility] [place] [address] CO2 [Moles/Vol] 29 mmol/L Normal 21-31 [facility] Comment on above: Performed By: #### L [id number] ####[facility] [[email or web address] ([facility] [place] [address] Creatinine [Mass/Vol] 0.63 mg/dL Low 0.70-1.30 [facility] Comment on above: Performed By: #### L [id number] ####[facility] [[email or web address] LAB ([facility])[address] [place] [address] GLOMERULAR FILTRATION RATE ML/MIN/1.73 SQ M.PREDICTED 95.0 mL/min/1.73m*2 Normal >60.0 [facility] Comment on above: Result Comment: [facility]???s estimated glomerular filtration rate (eGFR) will [...] of individuals. Performed By: #### L [id number] ####[facility] [[email or web address] ([facility] [place] [address] Glucose [Mass/Vol] 129 mg/dL High 70-100 [facility] Comment on above: Performed By: #### L [id number] ####[facility] [[email or web address] LAB (BEAKER)[address] [place] [address] Potassium [Moles/Vol] 3.9 mmol/L Normal 3.5-5.1 [facility] Comment on above: Performed By: #### L [id number] ####[facility] [[email or web address] ([facility] [place] [address] Sodium [Moles/Vol] 139 mmol/L Normal 136-145 [facility] Comment on above: Performed By: #### L [id number] ####[facility] [[email or web address] ([facility] [place] [address] Urea nitrogen [Mass/Vol] 24 mg/dL Normal 7-25 [facility] Comment on above: Performed By: #### L [id number] ####[facility] [[email or web address] LAB ([facility])[address] [place] [address] UREA NITROGEN/CREATININE (MASS RATIO) IN SER/PLAS 38.[address] [facility] Comment on above: Performed By: #### L [id number] ####[facility] [[email or web address] LAB ([facility])[address] [place] [address] MAGNESIUMon 08-04-2024 Magnesium [Mass/Vol] 1.9 mg/dL Normal 1.9-2.7 [facility] Comment on above: Performed By: #### L [id number] ####[facility] [[email or web address] LAB ([facility])[address] [place] [address] 30on 08-03-[address] [facility] 30 The patient is Moder ately Stable - Low risk of patient condition declining or worsening The patient's goals for the shift include rest/comfort The clinical goals for the shift include vss, safety Normal [facility] BLOOD CULTUREon 08-03-2024 Bacteria identified Cx Nom (Bld) No growth at [address] [facility] Comment on above: Performed By: #### L [id number] ####[facility] [[email or web address] LAB ([facility] [place] [address] Order Comment: 2 of 2 CBC WITH AUTO DIFFERENTIALon 08-03-2024 Erythrocyte distribution width (RBC) [Ratio] 13.1 % Normal 11.5-15.0 [facility] Comment on above: Performed By: #### L [id number] ####[facility] [[email or web address] LAB ([facility] [place] [address] ERYTHROCYTE MEAN CORPUSCULAR HEMOGLOBIN CONCENTRATION (G/DL) BY AUTOMATED 32.0 g/dL Normal 32.0-35.0 [facility] Comment on above: Performed By: #### L [id number] ####[facility] [[email or web address]] LAB (BEAKER)[address] [place] [address] Hematocrit (Bld) [Volume fraction] 27.8 % Low 39.0-50.0 [facility] Comment on above: Performed By: #### L [id number] ####[facility] [[email or web address] LAB ([facility] [place] [address] Hemoglobin (Bld) [Mass/Vol] 8.9 g/dL Low 13.0-17.0 [facility] Comment on above: Performed By: #### L [id number] ####[facility] [[email or web address] LAB ([facility])[address] [place] [address] MCH (RBC) [Entitic mass] 30.0 pg Normal 27.0-33.0 [facility] Comment on above: Performed By: #### L [id number] ####[facility] [[email or web address] LAB ([facility] [place] [address] MCV (RBC) [Entitic vol] 93.6 fL Normal 82.0-98.0 [facility] Comment on above: Performed By: #### L [id number] ####[facility] [[email or web address] LAB ([facility])[address] [place] [address] NRBC (PER 100 WBCS) BY AUTOMATED COUNT 0.0 % Normal 0 [facility] Comment on above: Performed By: #### L [id number] ####[facility] [[email or web address]] LAB ([facility] [place] [address] PLATELETS (10*3/UL) IN BLOOD AUTOMATED COUNT 149 10*3/uL Low 150-400 [facility] Comment on above: Performed By: #### L [id number] ####[facility] [[email or web address] LAB ([facility] [place] [address] RBC (Bld) [#/Vol] 2.97 10*6/uL Low 4.20-5.70 [facility] Comment on above: Performed By: #### L [id number] ####[facility] [[email or web address]] LAB (BEAKER)[address] [place] [address] WBC (Bld) [#/Vol] 14.09 10*3/uL High 4.00-10.60 [facility] Comment on above: Performed By: #### L [id number] ####[facility] [[email or web address]] LAB ([facility]AKER)[address] [place] [address] HPon 08-03-[address] [facility] LIPID PANELon 08-03-2024 CHOL/HDL 3.7 mg/dL [facility] Comment on above: Performed By: #### L [id number] ####[facility] [[email or web address] LAB ([facility])[address] [place] [address] Cholesterol [Mass/Vol] 86 mg/dL Low 120-200 [facility] Comment on above: Performed By: #### L [id number] ####[facility] [[email or web address] LAB ([facility] [facility] [address] Magnesium [Mass/Vol] 165 mg/dL High <150 [facility] Comment on above: Result Comment: TRIG LYCERIDE REFERENCE RANGE:20 YEARS AND OLDER CARDIOVASCULAR RISKLESS THAN 150 mg/dL LOW [id number] TO 199 mg/dL BORDERLINE [id number] mg/dL AND GREATER HIGH RISK Performed By: #### L [id number] ####[facility] [[email or web address]] LAB (BEAKER)[address] [place] [address] Magnesium [Mass/Vol] 30 mg/dL Normal 0-160 [facility] Comment on above: Performed By: #### L [id number] ####[facility] [[email or web address]] LAB (BEAKER)[address] [place] [address] Magnesium [Mass/Vol] 23 mg/dL Normal 23-92 [facility] Comment on above: Performed By: #### L [id number] ####[facility] [[email or web address]] LAB (BEAKER)[address] [place] [address] NON HDL CHOL. (LDL+VLDL) [address] [facility] Comment on above: Performed By: #### L [id number] ####[facility] [[email or web address]] LAB (BEAKER)[address] [place] [address] TOTAL VLDL-C 33 mg/dL Normal 0-40 [facility] Comment on above: Performed By: #### L [id number] ####[facility] [[email or web address] LAB ([facility])[address] [place] [address] MANUAL DIFFERENTIALon 2024 BASOPHILS (10*3/UL) IN BLOOD BY CALCULATION 0.01 10*3/uL Normal 0.00-0.20 [facility] Comment on above: Performed By: #### L [id number] ####[facility] [[email or web address] LAB ([facility])[address] [place] [address] BASOPHILS/100 LEUKOCYTES IN BLOOD BY AUTOMATED COUNT 0.1 % Normal 0.0-1.0 [facility] Comment on above: Performed By: #### L [id number] ####[facility] [[email or web address] LAB ([facility])[address] [place] [address] EOSINOPHILS (10*3/UL) IN BLOOD BY CALCULATION 0.00 10*3/uL Normal 0.00-0.50 [facility] Comment on above: Performed By: #### L [id number] ####[facility] [[email or web address] LAB ([facility])[address] [place] [address] EOSINOPHILS/100 LEUKOCYTES IN BLOOD BY AUTOMATED COUNT 0.0 % Normal 0.0-6.0 [facility] Comment on above: Performed By: #### L [id number] ####[facility] [[email or web address] LAB ([facility])[address] [place] [address] IMMATURE GRANULOCYTES (10*3/UL) IN BLOOD BY CALCULATION 0.11 10*3/uL Normal 0.00-0.20 [facility] Comment on above: Performed By: #### L [id number] ####[facility] [[email or web address] LAB ([facility])[address] [place] [address] IMMATURE GRANULOCYTES/100 LEUKOCYTES IN BLOOD BY AUTOMATED COUNT 0.8 % Normal 0.0-1.0 [facility] Comment on above: Performed By: #### L [id number] ####[facility] [[email or web address] LAB ([facility])[address] [place] [address] LYMPHOCYTES (10*3/UL) IN BLOOD BY CALCULATION 1.06 10*3/uL Low 1.20-4.00 [facility] Comment on above: Performed By: #### L [id number] ####[facility] [[email or web address] LAB ([facility])[address] [place] [address] LYMPHOCYTES/100 LEUKOCYTES IN BLOOD BY AUTOMATED COUNT 7.5 % Low 20.0-45.0 [facility] Comment on above: Performed By: #### L [id number] ####[facility] [[email or web address] LAB ([facility])[address] [place] [address] MONOCYTES (10*3/UL) IN BLOOD BY CALCUATION 1.68 10*3/uL High 0.10-1.00 [facility] Comment on above: Performed By: #### L [id number] ####[facility] [[email or web address] LAB ([facility])[address] [place] [address] MONOCYTES/100 LEUKOCYTES IN BLOOD BY AUTOMATED COUNT 11.9 % Normal 5.0-12.0 [facility] Comment on above: Performed By: #### L [id number] ####[facility] [[email or web address] LAB ([facility])[address] [place] [address] NEUTROPHILS (10*3/UL) IN BLOOD BY CALCULATION 11.2 10*3/uL High 1.6-7.6 [facility] Comment on above: Performed By: #### L [id number] ####[facility] [[email or web address] LAB ([facility])[address] [place] [address] NEUTROPHILS/100 LEUKOCYTES IN BLOOD BY AUTOMATED COUNT 79.7 % High 40.0-72.0 [facility] Comment on above: Performed By: #### L [id number] ####[facility] [[email or web address]] LAB ([facility])[address] [place] [address] NURSNOTEon 08-03-[address] [facility] NURSNOTE Normal [facility] URINALYSIS MICROSCOPIC WITH REFLEX CULTUREon 08-03-2024 MUCUS (#/LPF) IN URINE SEDIMENT Occasional Normal None Seen, Occasional , Few [facility] Comment on above: Performed By: #### L [id number] ####[facility] (BEAKER)[address] [place] [address] RBC (#/HPF) IN URINE SEDIMENT >20 Abnormal None Seen, 0-2 [facility] Comment on above: Performed By: #### L [id number] ####[facility] [[email or web address]] LAB (BEAKER)[address] [place] [address] SQUAMOUS EPITHELIAL CELLS (#/LPF) IN URINE SEDIMENT Occasional Normal None Seen, Occasional , Few [facility] Comment on above: Performed By: #### L [id number] ####[facility] [[email or web address]] LAB (BEAKER)[address] [place] [address] WBC (LEUKOCYTE) (#/HPF) IN URINE SEDIMENT 11-20 Abnormal None Seen, 0-2 [facility] Comment on above: Performed By: #### L [id number] ####[facility] [[email or web address]] LAB ([facility])[address] [place] [address] URINALYSIS WITH REFLEX CULTU REon 08-03-2024 BILIRUBIN, TOTAL PRESENCE IN URINE Negative Normal Negative [facility] Comment on above: Performed By: #### L [id number] ####[facility] [[email or web address]] LAB (BEAKER)[address] [place] [address] Clarity (U) Clear Normal Clear [facility] Comment on above: Performed By: #### L [id number] ####[facility] [[email or web address]] LAB (BEAKER)[address] [place] [address] Color (U) Yellow Normal Colorless, Yellow, Light[place] ow [facility] Comment on above: Performed By: #### L [id number] ####[facility] [[email or web address]] LAB (BEAKER)[address] [place] [address] GLUCOSE (MG/DL) IN URINE Normal Normal Normal [facility] Comment on above: Performed By: #### L [id number] ####[facility] [[email or web address]] LAB (BEAKER)[address] [place] [address] HEMOGLOBIN PRESENCE IN URINE Large Abnormal Negative [facility] Comment on above: Performed By: #### L [id number] ####[facility] [[email or web address] LAB ([facility])[address] [place] [address] Ketones Ql (U) Negative Normal Negative [facility] Comment on above: Performed By: #### L [id number] ####[facility] [[email or web address] LAB ([facility])[address] [place] [address] LEUKOCYTE ESTERASE PRESENCE IN URINE BY TEST STRIP Moderate Abnormal Negative [facility] Comment on above: Performed By: #### L [id number] ####[facility] [[email or web address] LAB ([facility])[address] [place] [address] NITRITE PRESENCE IN URINE Negative Normal Negative [facility] Comment on above: Performed By: #### L [id number] ####[facility] [[email or web address] LAB ([facility])[address] [place] [address] pH (U) 5.5 [pH] Normal 5.0-8.0 [facility] Comment on above: Performed By: #### L [id number] ####[facility] [[email or web address] LAB ([facility])[address] [place] [address] Protein (U) [Mass/Vol] Negative Normal Negative Un [facility] Comment on above: Performed By: #### L [id number] ####[facility] [[email or web address] LAB ([facility])[address] [place] [address] Specific gravity (U) [Rel density] 1.030 Normal 1.010-1.[address] [facility] Comment on above: Performed By: #### L [id number] ####[facility] [[email or web address] LAB ([facility])[address] [place] [address] UROBILINOGEN (MG/DL) IN URINE Normal Normal Normal [facility] Comment on above: Performed By: #### L [id number] ####[facility] [[email or web address] LAB ([facility])[address] [place] [address] URINE CULTURE, ROUTINEon Bacteria identified Cx Nom (U) No growth at [address] [facility] Comment on above: Performed By: #### L [id number] ####[facility] [[email or web address] LAB ([facility] [place] [address] 30on 08-02-[address] [facility] [address] [facility] [address] [facility] BASIC METABOLIC PANELon 07-07 Anion gap [Moles/Vol] 9 mmol/L Normal 7-20 [facility] Comment on above: Performed By: #### L [id number] ####[facility] [[email or web address] LAB ([facility])[address] [place] [address] Calcium [Mass/Vol] 7.8 mg/dL Low 8.6-10.3 [facility] Comment on above: Performed By: #### L [id number] ####[facility] [[email or web address] LAB ([facility])[address] [place] [address] Chloride [Moles/Vol] 105 mmol/L Normal 98-107 [facility] Comment on above: Performed By: #### L [id number] ####[facility] [[email or web address] LAB ([facility])[address] [place] [address] CO2 [Moles/Vol] 26 mmol/L Normal 21-31 [facility] Comment on above: Performed By: #### L [id number] ####[facility] [[email or web address] LAB ([facility])[address] [place] [address] Creatinine [Mass/Vol] 0.96 mg/dL Normal 0.70-1.30 [facility] Comment on above: Performed By: #### L [id number] ####[facility] [[email or web address] LAB ([facility])[address] [place] [address] GLOMERULAR FILTRATION RATE ML/MIN/1.73 SQ M.PREDICTED 78.9 mL/min/1.73m*2 Normal >60.0 [facility] Comment on above: Result Comment: [facility]???s estimated glomerular filtration rate (eGFR) will [...] of individuals. Performed By: #### L [id number] ####[facility] [[email or web address] LAB (BEAKER)[address] [place] [address] Glucose [Mass/Vol] 135 mg/dL High 70-100 [facility] Comment on above: Performed By: #### L [id number] ####[facility] [[email or web address] LAB ([facility] [place] [address] Potassium [Moles/Vol] 4.3 mmol/L Normal 3.5-5.1 [facility] Comment on above: Performed By: #### L [id number] ####[facility] [[email or web address] LAB ([facility] [place] [address] Sodium [Moles/Vol] 136 mmol/L Normal 136-145 [facility] Comment on above: Performed By: #### L [id number] ####[facility] [[email or web address] LAB ([facility] [place] [address] Urea nitrogen [Mass/Vol] 24 mg/dL Normal 7-25 [facility] Comment on above: Performed By: #### L [id number] ####[facility] [[email or web address] LAB (BEAKER)[address] [place] [address] UREA NITROGEN/CREATININE (MASS RATIO) IN SER/PLAS 25.[address] [facility] Comment on above: Performed By: #### L [id number] ####[email or web address] ([facility] [place] [address] CBCon 08-02-2024 Erythrocyte distribution width (RBC) [Ratio] 13.1 % Normal 11.5-15.0 [facility] Comment on above: Performed By: #### L [id number] ####[facility] [[email or web address] LAB (BEAKER)[address] [place] [address] ERYTHROCYTE MEAN CORPUSCULAR HEMOGLOBIN CONCENTRATION (G/DL) BY AUTOMATED 32.1 g/dL Normal 32.0-35.0 [facility] Comment on above: Performed By: #### L [id number] ####[email or web address] LAB ([facility])[address] [place] [address] Hematocrit (Bld) [Volume fraction] 27.1 % Low 39.0-50.0 [facility] Comment on above: Performed By: #### L [id number] ####[email or web address] LAB ([facility])[address] [address] Hemoglobin (Bld) [Mass/Vol] 8.7 g/dL Low 13.0-17.0 [facility] Comment on above: Performed By: #### L [id number] ####[email or web address] LAB ([facility])[address] [place] [address] MCH (RBC) [Entitic mass] 29.8 pg Normal 27.0-33.0 [facility] Comment on above: Performed By: #### L [id number] ####[email or web address] LAB ([facility])[address] [place] [address] MCV (RBC) [Entitic vol] 92.8 fL Normal 82.0-98.0 [facility] Comment on above: Performed By: #### L [id number] ####[email or web address] LAB ([facility])[address] [place] [address] PLATELETS (10*3/UL) IN BLOOD AUTOMATED COUNT 195 10*3/uL Normal 150-400 [facility] Comment on above: Performed By: #### L [id number] ####[email or web address] LAB ([facility])[address] [place] [address] RBC (Bld) [#/Vol] 2.92 10*6/uL Low 4.20-5.70 [facility] Comment on above: Performed By: #### L [id number] ####[email or web address] ([facility] [place] [address] WBC (Bld) [#/Vol] 22.16 10*3/uL High 4.00-10.60 [facility] Comment on above: Performed By: #### L [id number] ####[facility] [[email or web address] ([facility] [place] [address] Erythrocyte distribution width (RBC) [Ratio] 12.9 % Normal 11.5-15.0 [facility] Comment on above: Performed By: #### L [id number] ####[facility] [[email or web address] ([facility])[address] [place] [address] ERYTHROCYTE MEAN CORPUSCULAR HEMOGLOBIN CONCENTRATION (G/DL) BY AUTOMATED 33.1 g/dL Normal 32.0-35.0 [facility] Comment on above: Performed By: #### L [id number] ####[facility] [[email or web address] ([facility])[address] [place] [address] Hematocrit (Bld) [Volume fraction] 27.2 % Low 39.0-50.0 [facility] Comment on above: Performed By: #### L [id number] ####[facility] [[email or web address] ([facility])[address] [place] [address] Hemoglobin (Bld) [Mass/Vol] 9.0 g/dL Low 13.0-17.0 [facility] Comment on above: Performed By: #### L [id number] ####[facility] [[email or web address] ([facility])[address] [place] [address] MCH (RBC) [Entitic mass] 30.2 pg Normal 27.0-33.0 [facility] Comment on above: Performed By: #### L [id number] ####[facility] [email or web address] ([facility] [place] [address] Performed By: #### L [id number] ####[facility] [[email or web address] LAB ([facility])[address] [place] [address] MCV (RBC) [Entitic vol] 91.3 fL Normal 82.0-98.0 [facility] Comment on above: Performed By: #### L [id number] ####[facility] [[email or web address] LAB ([facility] [place] [address] PLATELETS (10*3/UL) IN BLOOD AUTOMATED COUNT 193 10*3/uL Normal 150-400 [facility] Comment on above: Performed By: #### L [id number] ####[facility] [[email or web address] LAB ([facility])[address] [place] [address] RBC (Bld) [#/Vol] 2.98 10*6/uL Low 4.20-5.70 [facility] Comment on above: Performed By: #### L [id number] ####[facility] [[email or web address] LAB ([facility])[address] [place] [address] WBC (Bld) [#/Vol] 25.71 10*3/uL High 4.00-10.60 [facility] Comment on above: Performed By: #### L [id number] ####[facility] [[email or web address] LAB ([facility])[address] [place] [address] FL ESOPHAGUS BARIUM SWALLOW WITH VIDEO AND SPEECHon 08-02-2024 FL ESOPHAGUS BARIUM SWALLOW WITH VIDEO AND SPEECH Normal [facility] NURSNOTEon 08-02-[address] [facility] ANESon 08-01-[address] [facility] ANES Normal [facility] APTTon 08-01-2024 ACTIVATED PARTIAL THROMBOPLASTIN TIME IN PPP BY COAGULATION ASSAY 40.3 Seconds High 25.0-35.0 [facility] Comment on above: Result Comment: Clin ical significance of the APTT is questionable in the presence of heparin. Performed By: #### L [id number] ####[facility] [[email or web address] LAB ([facility])[address] [place] [address] ARTERIAL BLOOD GAS WITH IONI ZED CALCIUMon 08-01-2024 Base excess Calc (Bld) [Moles/Vol] 0.8 mmol/L Normal -2.0-3.0 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: nitriles lab technician Performed By: #### L [id number] ####[facility] RESPIRATORY [id number] [place] [address] [facility] [[email or web address]] SOURCE OF OXYGEN Vent Normal [facility] Comment on above: Order Comment: nitriles lab technician Performed By: #### L [id number] ####[facility] RESPIRATORY [id number] [place] [address] [facility] [[email or web address]] BASIC METABOLIC PANELon 05-2 Anion gap [Moles/Vol] 10 mmol/L Normal 7-20 [facility] Comment on above: Performed By: #### L [id number] ####[facility] ([facility] [place] [address] Calcium [Mass/Vol] 7.8 mg/dL Low 8.6-10.3 [facility] Comment on above: Performed By: #### L [id number] ####[facility] [[email or web address] LAB ([facility] [place] [address] Chloride [Moles/Vol] 106 mmol/L Normal 98-107 [facility] Comment on above: Performed By: #### L [id number] ####[facility] [[email or web address] LAB ([facility])[address] [place] [address] CO2 [Moles/Vol] 24 mmol/L Normal 21-31 [facility] Comment on above: Performed By: #### L [id number] ####[facility] [[email or web address] LAB ([facility])[address] [place] [address] Creatinine [Mass/Vol] 0.63 mg/dL Low 0.70-1.30 [facility] Comment on above: Performed By: #### L [id number] ####[facility] [[email or web address] LAB ([facility])[address] [place] [address] GLOMERULAR FILTRATION RATE ML/MIN/1.73 SQ M.PREDICTED 95.0 mL/min/1.73m*2 Normal >60.0 [facility] Comment on above: Result Comment: [facility]???s estimated glomerular filtration rate (eGFR) will [...] of individuals. Performed By: #### L [id number] ####[facility] [[email or web address] LAB ([facility])[address] [place] [address] Glucose [Mass/Vol] 160 mg/dL High 70-100 [facility] Comment on above: Performed By: #### L [id number] ####[facility] [[email or web address] LAB ([facility] [place] [address] Potassium [Moles/Vol] 4.1 mmol/L Normal 3.5-5.1 [facility] Comment on above: Performed By: #### L [id number] ####[facility] [[email or web address] LAB ([facility])[address] [place] [address] Sodium [Moles/Vol] 136 mmol/L Normal 136-145 [facility] Comment on above: Performed By: #### L [id number] ####[facility] [[email or web address] LAB ([facility])[address] [place] [address] Urea nitrogen [Mass/Vol] 16 mg/dL Normal 7-25 [facility] Comment on above: Performed By: #### L [id number] ####[facility] [[email or web address] LAB ([facility])[address] [place] [address] UREA NITROGEN/CREATININE (MASS RATIO) IN SER/PLAS 25.[address] [facility] Comment on above: Performed By: #### L [id number] ####[facility] [[email or web address] LAB ([facility])[address] [place] [address] CBC WITH AUTO DIFFERENTIALon 08-01-2024 Basophils (Bld) [#/Vol] 0.01 10*3/uL Normal 0.00-0.20 [facility] Comment on above: Performed By: #### L [id number] ####[facility] [[email or web address] LAB ([facility])[address] [place] [address] Basophils/100 WBC (Bld) 0.1 % Normal 0.0-1.0 [facility] Comment on above: Performed By: #### L [id number] ####[facility] [[email or web address] LAB ([facility] [place] [address] Eosinophils (Bld) [#/Vol] 0.00 10*3/uL Normal 0.00-0.50 [facility] Comment on above: Performed By: #### L [id number] ####[facility] [[email or web address] LAB ([facility])[address] [place] [address] Eosinophils/100 WBC (Bld) 0.0 % Normal 0.0-6.0 [facility] Comment on above: Performed By: #### L [id number] ####[facility] [[email or web address] LAB ([facility])[address] [place] [address] Erythrocyte distribution width (RBC) [Ratio] 12.8 % Normal 11.5-15.0 [facility] Comment on above: Performed By: #### L [id number] ####[facility] [[email or web address] LAB ([facility])[address] [place] [address] ERYTHROCYTE MEAN CORPUSCULAR HEMOGLOBIN CONCENTRATION (G/DL) BY AUTOMATED 32.8 g/dL Normal 32.0-35.0 [facility] Comment on above: Performed By: #### L [id number] ####[facility] [[email or web address] LAB ([facility])[address] [place] [address] Hematocrit (Bld) [Volume fraction] 28.7 % Low 39.0-50.0 [facility] Comment on above: Performed By: #### L [id number] ####[facility] [[email or web address] LAB ([facility])[address] [place] [address] Hemoglobin (Bld) [Mass/Vol] 9.4 g/dL Low 13.0-17.0 [facility] Comment on above: Performed By: #### L [id number] ####[facility] [[email or web address] LAB ([facility] [place] [address] Immature granulocytes (Bld) [#/Vol] 0.21 10*3/uL High 0.00-0.20 [facility] Comment on above: Performed By: #### L [id number] ####[facility] [[email or web address] LAB (BE[facility]ER)[address] [place] [address] Immature granulocytes/100 WBC (Bld) 2.1 % High 0.0-1.0 [facility] Comment on above: Performed By: #### L [id number] ####[facility] [[email or web address] LAB ([facility])[address] [place] [address] Lymphocytes (Bld) [#/Vol] 0.68 10*3/uL Low 1.20-4.00 [facility] Comment on above: Performed By: #### L [id number] ####[facility] [[email or web address] LAB ([facility])[address] [place] [address] Lymphocytes/100 WBC (Bld) 6.9 % Low 20.0-45.0 [facility] Comment on above: Performed By: #### L [id number] ####[facility] [[email or web address] LAB (BE[facility]ER)[address] [place] [address] MCV (RBC) [Entitic vol] 92.3 fL Normal 82.0-98.0 [facility] Comment on above: Performed By: #### L [id number] ####[facility] [[email or web address] LAB ([facility])[address] [place] [address] Monocytes (Bld) [#/Vol] 0.57 10*3/uL Normal 0.10-1.00 [facility] Comment on above: Performed By: #### L [id number] ####[facility] [[email or web address] LAB ([facility])[address] [place] [address] Monocytes/100 WBC (Bld) 5.7 % Normal 5.0-12.0 [facility] Comment on above: Performed By: #### L [id number] ####[facility] [[email or web address] LAB ([facility])[address] [place] [address] Neutrophils (Bld) [#/Vol] 8.45 10*3/uL High 1.60-7.60 [facility] Comment on above: Performed By: #### L [id number] ####[facility] [[email or web address] LAB ([facility])[address] [place] [address] Neutrophils/100 WBC (Bld) 85.2 % High 40.0-72.0 [facility] Comment on above: Performed By: #### L [id number] ####[facility] [[email or web address] LAB ([facility])[address] [place] [address] NRBC (PER 100 WBCS) BY AUTOMATED COUNT 0.0 % Normal 0 [facility] Comment on above: Performed By: #### L [id number] ####[facility] [[email or web address] LAB ([facility])[address] [place] [address] PLATELETS (10*3/UL) IN BLOOD AUTOMATED COUNT 161 10*3/uL Normal 150-400 [facility] Comment on above: Performed By: #### L [id number] ####[facility] [[email or web address] LAB ([facility])[address] [place] [address] RBC (Bld) [#/Vol] 3.11 10*6/uL Low 4.20-5.70 [facility] Comment on above: Performed By: #### L [id number] ####[facility] [[email or web address] LAB ([facility])[address] [place] [address] WBC (Bld) [#/Vol] 9.92 10*3/uL Normal 4.00-10.60 [facility] Comment on above: Performed By: #### L [id number] ####[facility] [[email or web address] LAB ([facility])[address] [place] [address] HPon 08-01-2024 HP H&P reviewed. The cora cee was examined and there are no changes to the H&P. [facility] MAGNESIUMon 08-01-2024 Magnesium [Mass/Vol] 1.7 mg/dL Low 1.9-2.7 [facility] Comment on above: Performed By: #### L [id number] ####[facility] [[email or web address] LAB ([facility])[address] [facility] [address] OPNOTEon 08-01-[address] [facility] PHOSPHORUSon 08-01-2024 Magnesium [Mass/Vol] 3.5 mg/dL Normal 2.5-5.0 [facility] Comment on above: Performed By: #### L [id number] ####[facility] [[email or web address] LAB ([facility])[address] [place] [address] POCT GLUCOSE METER UNSOLICIT ED RESULTSon 08-01-2024 Glucose [Mass/Vol] 174 mg/dL High 70-105 [facility] Comment on above: Order Comment: Waive d Testing in the ED is performed under the ED CLIA certificate #[id number]. Result Comment: [email or web address] Performed By: #### L [id number] ####[facility] [[email or web address] LAB ([facility])[address] [place] [address] Glucose [Mass/Vol] 166 mg/dL High 70-105 [facility] Comment on above: Order Comment: Waive d Testing in the ED is performed under the ED CLIA certificate #[id number]. Result Comment: [email or web address] Performed By: #### L [id number] ####[facility] [[email or web address] LAB ([facility])[address] [place] [address] PROTIME-INRon 08-01-2024 INR IN PPP BY COAGULATION ASSAY 1.35 High 0.90-1.10 [facility] Comment on above: Result Comment: ACCC [...] CHEST 1995;[id number]. Performed By: #### L [id number] ####[facility] [[email or web address] LAB ([facility])[address] [place] [address] PROTHROMBIN TIME (PT) IN PPP BY COAGULATION ASSAY 16.6 Seconds High 12.3-14.8 [facility] Comment on above: Performed By: #### L [id number] ####[facility] LAB (BEAKER)[address] [place] [address] TYPE AND SCREENon 08-01-[address] AB [address]CRE[address] Negative Normal [facility] Comment on above: Performed By: #### L [id number] ####[facility] BLOOD BANK, ABO group Nom (Bld) A Normal [facility] Comment on above: Performed By: #### L [id number] ####[facility] BLOOD BANK, RH TYPE IN BLOOD Positive Normal [facility] Comment on above: Performed By: #### L [id number] ####[facility] BLOOD BANK, Orders Onlyon 07-27-[address] [facility] Orders Onlyon 07-26-[address] [facility] Basophils Auto (Bld) [#/Vol] on 07-18-2024 Basophils (Bld) [#/Vol] Automated basophil count 0.0-0.1 [facility] Basophils (Bld) [#/Vol] 0.0 10 3/uL 0.0-0.1 [facility] Basophils/100 WBC Auto (Bld) on 07-18-2024 Basophils/100 WBC (Bld) Automated basophil % 0.2-2.0 [facility] Basophils/100 WBC (Bld) 0.5 % 0.2-2.0 [facility] Eosinophils/100 WBC Auto (Bl d)on 07-18-2024 Eosinophils/100 WBC (Bld) Automated eosinophil % 0.9-7.0 [facility] Eosinophils/100 WBC (Bld) 1.8 % 0.9-7.0 [facility] Erythrocyte distribution wid th Auto (RBC) [Ratio]on 07-18-2024 Erythrocyte distribution width (RBC) [Ratio] Erythrocyte distribution width [Ratio] by Automated count 11.0-15.0 [facility] Erythrocyte distribution width (RBC) [Ratio] 13.2 % 11.0-15.0 [facility] Estimated glomerular filtrat ion rate (GFR) non- Americanon 07-18-2024 GFR/1.73 sq M.predicted among non-blacks MDRD (S/P/Bld) [Vol rate/Area] Estimated glomerular filtration rate (GFR) non- >=60 mL/min/1.7 3m 2 [facility] GFR/1.73 sq M.predicted among non-blacks MDRD (S/P/Bld) [Vol rate/Area] mL/min/{1.73_m2} >=60 mL/min/1.7 3m 2 [facility] Hematocrit Auto (Bld) [Volum e fraction]on 07-18-2024 Hematocrit (Bld) [Volume fraction] Hematocrit [Volume Fraction] of Blood by Automated count Low 42.0-54.0 [facility] Hematocrit (Bld) [Volume fraction] 34.5 % Low 42.0-54.0 [facility] Hemoglobin [Mass/volume] in Bloodon 07-18-2024 Hemoglobin (Bld) [Mass/Vol] Hemoglobin [Mass/volume] in Blood Low 14.0-18.0 [facility] Hemoglobin (Bld) [Mass/Vol] 11.1 g/dL Low 14.0-18.0 [facility] Laboratory - Chemistry and C hemistry - challengeon 07-18-2024 Calcium [Mass/Vol] 8.9 mg/dL 8.5-10.1 [facility] Chloride [Moles/Vol] 103 mmol/L 98-107 [facility] CO2 [Moles/Vol] 29.3 mmol/L 21.0-32.0 [facility] Creatinine [Mass/Vol] 1.00 mg/dL 0.70-1.[address] [facility] GFR/1.73 sq M.predicted MDRD (S/P/Bld) [Vol rate/Area] mL/min/{1.73_m2} >=60 mL/min/1.7 3m 2 [facility] Glucose [Mass/Vol] 129 mg/dL High 74-106 [facility] Potassium [Moles/Vol] 4.4 mmol/L 3.5-5.[address] [facility] Sodium [Moles/Vol] 138 mmol/L 136-145 [facility] Urea nitrogen [Mass/Vol] 18.0 mg/dL 7.0-18.0 [facility] Urea nitrogen/Creatinine [Mass ratio] 18.0 mg/mg [facility] Laboratory - Hematology and Cell countson 07-18-2024 Immature granulocytes/100 WBC (Bld) 0.3 % 0.0-0.5 [facility] Leukocytes [#/volume] correc shyann for nucleated erythrocytes in Blood by Automated counon 07-18-2024 WBC corrected for nucl RBC Auto (Bld) [#/Vol] Leukocytes [#/volume] corrected for nucleated erythrocytes in Blood by Automated coun 4.0-11.0 [facility] WBC corrected for nucl RBC Auto (Bld) [#/Vol] 7.8 10 3/uL 4.0-11.0 [facility] Lymphocytes Auto (Bld) [#/Vo l]on 07-18-2024 Lymphocytes (Bld) [#/Vol] Lymphocytes [#/volume] in Blood by Automated count 1.2-3.8 [facility] Lymphocytes (Bld) [#/Vol] 1.3 10 3/uL 1.2-3.8 [facility] Lymphocytes/100 WBC Auto (Bl d)on 07-18-2024 Lymphocytes/100 WBC (Bld) Lymphocytes/100 leukocytes in Blood by Automated count Low 20.5-60.0 [facility] Lymphocytes/100 WBC (Bld) 16.8 % Low 20.5-60.0 [facility] MCH Auto (RBC) [Entitic mass ]on 07-18-2024 MCH (RBC) [Entitic mass] MCH [Entitic mass] by Automated count 25.9-34.0 [facility] MCH (RBC) [Entitic mass] 30.3 pg 25.9-34.0 [facility] MCHC Auto (RBC) [Mass/Vol]on 07-18-2024 MCHC (RBC) [Mass/Vol] MCHC [Mass/volume] by Automated count 29.9-35.2 [facility] MCHC (RBC) [Mass/Vol] 32.2 g/dL 29.9-35.[address] [facility] MCV Auto (RBC) [Entitic vol] on 07-18-2024 MCV (RBC) [Entitic vol] MCV [Entitic volume] by Automated count High 80.0-94.0 [facility] MCV (RBC) [Entitic vol] 94.3 fL High 80.0-94.0 [facility] Monocytes Auto (Bld) [#/Vol] on 07-18-2024 Monocytes (Bld) [#/Vol] Automated blood monocyte count High 0.3-0.8 [facility] Monocytes (Bld) [#/Vol] 1.0 10 3/uL High 0.3-0.8 [facility] Monocytes/100 WBC Auto (Bld) on 07-18-2024 Monocytes/100 WBC (Bld) Automated monocyte % High 1.7-12.0 [facility] Monocytes/100 WBC (Bld) 12.1 % High 1.7-12.0 [facility] Neutrophils Auto (Bld) [#/Vo l]on 07-18-2024 Neutrophils (Bld) [#/Vol] Neutrophils [#/volume] in Blood by Automated count 1.4-6.5 [facility] Neutrophils (Bld) [#/Vol] 5.4 10 3/uL 1.4-6.5 [facility] Neutrophils/100 WBC Auto (Bl d)on 07-18-2024 Neutrophils/100 WBC (Bld) Automated neutrophil % 43.0-75.0 [facility] Neutrophils/100 WBC (Bld) 68.5 % 43.0-75.0 [facility] No Panel Informationon 07-18 Eosinophils # (Auto) 0.1 10 3/uL 0.0-0.[address] [facility] Immature Granulocyte # (Auto) 0.02 10 3/uL 0.00-0.03 [facility] Platelet mean volume Auto (B ld) [Entitic vol]on 07-18-2024 Platelet mean volume (Bld) [Entitic vol] Platelet mean volume [Entitic volume] in Blood by Automated count 9.5-13. [facility] Platelet mean volume (Bld) [Entitic vol] 10.0 fL 9.5-13. [facility] Platelets Auto (Bld) [#/Vol] on 07-18-2024 Platelets (Bld) [#/Vol] Platelets [#/volume] in Blood by Automated count 150-450 [facility] Platelets (d) [#/Vol] 158 10 3/uL 150-450 [facility] RBC Auto (Bld) [#/Vol]on RBC (Bld) [#/Vol] Erythrocytes [#/volu me] in Blood by Automated count Low 4.70-6.10 [facility] RBC (Bld) [#/Vol] 3.66 10 6/uL Low 4.70-6.10 [facility] Serum or plasma anion gap de terminationon 07-18-2024 Anion gap [Moles/Vol] Serum or plasma an ion gap determination [facility] Anion gap [Moles/Vol] 10.1 mmol/L Fi [facility] HPon 07-10-[address] [facility] Orders Onlyon 07-04-[address] [facility] BASIC METABOLIC PANELon - Anion gap [Moles/Vol] 9 mmol/L Normal 7-20 [facility] Comment on above: Performed By: #### L [id number] ####[facility] [[email or web address] LAB (BEAKER)[address] [place] [address] Calcium [Mass/Vol] 7.8 mg/dL Low 8.6-10.3 [facility] Comment on above: Performed By: #### L [id number] ####[facility] (BEAKER)[address] [facility] [place] [address] Chloride [Moles/Vol] 103 mmol/L Normal 98-107 [facility] Comment on above: Performed By: #### L [id number] ####[facility] [[email or web address] LAB (BEAKER)[address] [facility] [place] [address] CO2 [Moles/Vol] 24 mmol/L Normal 21-31 [facility] Comment on above: Performed By: #### L [id number] ####[facility] [[email or web address] LAB (BEAKER)[address] [facility] [place] [address] Creatinine [Mass/Vol] 0.73 mg/dL Normal 0.70-1.30 [facility] Comment on above: Performed By: #### L [id number] ####[facility] [[email or web address] LAB ([facility])[address] [place] [address] GLOMERULAR FILTRATION RATE ML/MIN/1.73 SQ M.PREDICTED 90.8 mL/min/1.73m*2 Normal >60.0 [facility] Comment on above: Result Comment: [facility]???s estimated glomerular filtration rate (eGFR) will [...] of individuals. Performed By: #### L [id number] ####[facility] [[email or web address] LAB ([facility])[address] [place] [address] Glucose [Mass/Vol] 93 mg/dL Normal 70-100 [facility] Comment on above: Performed By: #### L [id number] ####[facility] [[email or web address] LAB ([facility])[address] [place] [address] Potassium [Moles/Vol] 3.9 mmol/L Normal 3.5-5.1 [facility] Comment on above: Performed By: #### L [id number] ####[facility] [[email or web address] LAB ([facility])[address] [place] [address] Sodium [Moles/Vol] 132 mmol/L Low 136-145 [facility] Comment on above: Performed By: #### L [id number] ####[facility] [[email or web address] LAB ([facility])[address] [place] [address] Urea nitrogen [Mass/Vol] 22 mg/dL Normal 7-25 [facility] Comment on above: Performed By: #### L [id number] ####[facility] [[email or web address] LAB ([facility])[address] [place] [address] UREA NITROGEN/CREATININE (MASS RATIO) IN SER/PLAS 30.[address] [facility] Comment on above: Performed By: #### L [id number] ####[facility] [[email or web address] LAB ([facility])[address] [place] [address] CBCon 06-30-2024 Erythrocyte distribution width (RBC) [Ratio] 12.7 % Normal 11.5-15.0 [facility] Comment on above: Performed By: #### L [id number] ####[facility] [[email or web address] LAB ([facility])[address] [place] [address] ERYTHROCYTE MEAN CORPUSCULAR HEMOGLOBIN CONCENTRATION (G/DL) BY AUTOMATED 32.1 g/dL Normal 32.0-35.0 [facility] Comment on above: Performed By: #### L [id number] ####[facility] [[email or web address] LAB ([facility])[address] [place] [address] Hematocrit (Bld) [Volume fraction] 29.0 % Low 39.0-50.0 [facility] Comment on above: Performed By: #### L [id number] ####[facility] [[email or web address] LAB ([facility])[address] [place] [address] Hemoglobin (Bld) [Mass/Vol] 9.3 g/dL Low 13.0-17.0 [facility] Comment on above: Performed By: #### L [id number] ####[facility] [[email or web address] LAB ([facility])[address] [place] [address] MCH (RBC) [Entitic mass] 29.9 pg Normal 27.0-33.0 [facility] Comment on above: Performed By: #### L [id number] ####[facility] [[email or web address] LAB ([facility])[address] [place] [address] MCV (RBC) [Entitic vol] 93.2 fL Normal 82.0-98.0 [facility] Comment on above: Performed By: #### L [id number] ####[facility] [[email or web address]] LAB (BEAKER)[address] [address] PLATELETS (10*3/UL) IN BLOOD AUTOMATED COUNT 161 10*3/uL Normal 150-400 [facility] Comment on above: Performed By: #### L [id number] ####[facility] [[email or web address] LAB ([facility])[address] [address] RBC (Bld) [#/Vol] 3.11 10*6/uL Low 4.20-5.70 [facility] Comment on above: Performed By: #### L [id number] ####[facility] [[email or web address] LAB ([facility])[address] [address] WBC (Bld) [#/Vol] 6.53 10*3/uL Normal 4.00-10.60 [facility] Comment on above: Performed By: #### L [id number] ####[facility] [[email or web address] LAB ([facility])[address] [address] DSon 06-30-[address] [facility] 30on 06-29-[address] [facility] ANESon 06-29-[address] [facility] ANES Normal [facility] BASIC METABOLIC PANELon 06-07 Anion gap [Moles/Vol] 8 mmol/L Normal 7-20 [facility] Comment on above: Performed By: #### L [id number] ####[facility] [[email or web address] LAB ([facility] [place] [address] Calcium [Mass/Vol] 8.1 mg/dL Low 8.6-10.3 [facility] Comment on above: Performed By: #### L [id number] ####[facility] [[email or web address] LAB ([facility])[address] [address] Chloride [Moles/Vol] 104 mmol/L Normal 98-107 [facility] Comment on above: Performed By: #### L [id number] ####[facility] [[email or web address] LAB ([facility] [place] [address] CO2 [Moles/Vol] 25 mmol/L Normal 21-31 [facility] Comment on above: Performed By: #### L [id number] ####[facility] [[email or web address] LAB ([facility])[address] [place] [address] Creatinine [Mass/Vol] 0.73 mg/dL Normal 0.70-1.30 [facility] Comment on above: Performed By: #### L [id number] ####[facility] [[email or web address] LAB ([facility])[address] [place] [address] GLOMERULAR FILTRATION RATE ML/MIN/1.73 SQ M.PREDICTED 90.8 mL/min/1.73m*2 Normal >60.0 [facility] Comment on above: Result Comment: [facility]???s estimated glomerular filtration rate (eGFR) will [...] of individuals. Performed By: #### L [id number] ####[facility] [[email or web address] LAB ([facility])[address] [place] [address] Glucose [Mass/Vol] 95 mg/dL Normal 70-100 [facility] Comment on above: Performed By: #### L [id number] ####[facility] [[email or web address] LAB ([facility])[address] [place] [address] Potassium [Moles/Vol] 4.2 mmol/L Normal 3.5-5.1 [facility] Comment on above: Performed By: #### L [id number] ####[facility] [[email or web address] LAB ([facility])[address] [place] [address] Sodium [Moles/Vol] 133 mmol/L Low 136-145 [facility] Comment on above: Performed By: #### L [id number] ####[facility] [[email or web address] LAB (BEAKER)[address] [address] Urea nitrogen [Mass/Vol] 29 mg/dL High 7-25 [facility] Comment on above: Performed By: #### L [id number] ####[facility] [[email or web address] LAB ([facility] [address] UREA NITROGEN/CREATININE (MASS RATIO) IN SER/PLAS 39.[address] [facility] Comment on above: Performed By: #### L [id number] ####[facility] [[email or web address] LAB ([facility] [address] CBCon 06-29-2024 Erythrocyte distribution width (RBC) [Ratio] 13.0 % Normal 11.5-15.0 [facility] Comment on above: Performed By: #### L [id number] ####[facility] [[email or web address] LAB ([facility])[address] [address] ERYTHROCYTE MEAN CORPUSCULAR HEMOGLOBIN CONCENTRATION (G/DL) BY AUTOMATED 32.1 g/dL Normal 32.0-35.0 [facility] Comment on above: Performed By: #### L [id number] ####[facility] [[email or web address] LAB ([facility] [address] Hematocrit (Bld) [Volume fraction] 31.2 % Low 39.0-50.0 [facility] Comment on above: Performed By: #### L [id number] ####[facility] [[email or web address] LAB ([facility] [address] Hemoglobin (Bld) [Mass/Vol] 10.0 g/dL Low 13.0-17.0 [facility] Comment on above: Performed By: #### L [id number] ####[facility] [[email or web address] LAB ([facility] [address] MCH (RBC) [Entitic mass] 29.5 pg Normal 27.0-33.0 [facility] Comment on above: Performed By: #### L [id number] ####[facility] [[email or web address]] LAB (BEAKER)[address] [address] MCV (RBC) [Entitic vol] 92.0 fL Normal 82.0-98.0 [facility] Comment on above: Performed By: #### L [id number] ####[facility] [[email or web address] LAB ([facility] [place] [address] PLATELETS (10*3/UL) IN BLOOD AUTOMATED COUNT 164 10*3/uL Normal 150-400 [facility] Comment on above: Performed By: #### L [id number] ####[facility] [[email or web address] LAB ([facility])[address] [place] [address] RBC (Bld) [#/Vol] 3.39 10*6/uL Low 4.20-5.70 [facility] Comment on above: Performed By: #### L [id number] ####[facility] [[email or web address] LAB ([facility])[address] [place] [address] WBC (Bld) [#/Vol] 8.52 10*3/uL Normal 4.00-10.60 [facility] Comment on above: Performed By: #### L [id number] ####[facility] [[email or web address] LAB ([facility])[address] [place] [address] FERRITINon 06-29-2024 FERRITIN (NG/ML) IN SER/PLAS 168.0 ng/mL Normal 24.0-336.0 [facility] Comment on above: Performed By: #### L [id number] ####[facility] [[email or web address]] LAB ([facility])[address] [place] [address] FOLATEon 06-29-2024 FOLATE (NG/ML) IN SER/PLAS 7.77 ng/mL Normal 6.6-1000 [facility] Comment on above: Performed By: #### L [id number] ####[facility] [[email or web address]] LAB ([facility] [place] [address] HEMOGLOBIN AND HEMATOCRIT, B LOODon 06-29-2024 Hematocrit (Bld) [Volume fraction] 27.7 % Low 39.0-50.0 [facility] Comment on above: Performed By: #### L [id number] ####[facility] [[email or web address] LAB ([facility] [place] [address] Hemoglobin (Bld) [Mass/Vol] 8.9 g/dL Low 13.0-17.0 [facility] Comment on above: Performed By: #### L [id number] ####[facility] [[email or web address]] LAB (BEAKER)[address] [place] [address] Hematocrit (Bld) [Volume fraction] 33.7 % Low 39.0-50.0 [facility] Comment on above: Performed By: #### L [id number] ####[facility] [[email or web address]] LAB (BEAKER)[address] [place] [address] Hemoglobin (Bld) [Mass/Vol] 10.7 g/dL Low 13.0-17.0 [facility] Comment on above: Performed By: #### L [id number] ####[facility] [[email or web address]] LAB (BEAKER)[address] [place] [address] Hematocrit (Bld) [Volume fraction] 32.4 % Low 39.0-50.0 [facility] Comment on above: Performed By: #### L [id number] ####[facility] [[email or web address]] LAB (BEAKER)[address] [place] [address] Hemoglobin (Bld) [Mass/Vol] 10.6 g/dL Low 13.0-17.0 [facility] Comment on above: Performed By: #### L [id number] ####[facility] [[email or web address]] LAB (BEAKER)[address] [place] [address] IRON AND TIBCon 06-29-2024 IRON (UG/DL) IN SER/PLAS 40 ug/dL Low 50-212 [facility] Comment on above: Performed By: #### L [id number] ####[facility] [[email or web address]] LAB (BEAKER)[address] [place] [address] IRON BINDING CAPACITY (UG/DL) IN SER/PLAS 227 ug/dL Low 250-450 [facility] Comment on above: Performed By: #### L [id number] ####[facility] [[email or web address]] LAB (BEAKER)[address] [place] [address] IRON BINDING CAPACITY.UNSATURATED (UG/DL) IN SER/PLAS 187.0 ug/dL Normal 155.0-355. 0 [facility] Comment on above: Performed By: #### L [id number] ####[facility] [[email or web address] LAB ([facility])[address] [place] [address] IRON SATURATION (%) IN SER/PLAS 18 % Low 20-50 [facility] Comment on above: Performed By: #### L [id number] ####[facility] [[email or web address] LAB ([facility] [place] [address] TRANSFERRINon 06-29-2024 Magnesium [Mass/Vol] 195 mg/dL Normal 168-348 [facility] Comment on above: Performed By: #### L [id number] ####[facility] [[email or web address] LAB ([facility])[address] [place] [address] VITAMIN B12on 06-29-2024 Cobalamin (Vitamin B12) [Mass/Vol] 373 pg/mL Normal 180-914 [facility] Comment on above: Result Comment: REFE RENCE RANGES:180-914 pg/mL Deddya341-032 pg/mL Indeterminate<145 pg/mL Deficient Performed By: #### L [id number] ####[facility] [[email or web address] LAB ([facility])[address] [place] [address] 30on 06-28-[address] [facility] [address] [facility] [address] [facility] BASIC METABOLIC PANELon 04-2 Anion gap [Moles/Vol] 10 mmol/L Normal 7-20 [facility] Comment on above: Performed By: #### L [id number] ####[facility] [[email or web address] LAB ([facility] [place] [address] Calcium [Mass/Vol] 8.2 mg/dL Low 8.6-10.3 [facility] Comment on above: Performed By: #### L [id number] ####[facility] [[email or web address] LAB ([facility] [place] [address] Chloride [Moles/Vol] 105 mmol/L Normal 98-107 [facility] Comment on above: Performed By: #### L [id number] ####[facility] [[email or web address]] LAB (BEAKER)[address] [place] [address] CO2 [Moles/Vol] 24 mmol/L Normal 21-31 [facility] Comment on above: Performed By: #### L [id number] ####[facility] [[email or web address] LAB ([facility] [place] [address] Creatinine [Mass/Vol] 0.75 mg/dL Normal 0.70-1.30 [facility] Comment on above: Performed By: #### L [id number] ####[facility] [[email or web address] LAB ([facility])[address] [place] [address] GLOMERULAR FILTRATION RATE ML/MIN/1.73 SQ M.PREDICTED 90.1 mL/min/1.73m*2 Normal >60.0 [facility] Comment on above: Result Comment: [facility]???s estimated glomerular filtration rate (eGFR) will [...] of individuals. Performed By: #### L [id number] ####[facility] [[email or web address] LAB ([facility] [place] [address] Glucose [Mass/Vol] 109 mg/dL High 70-100 [facility] Comment on above: Performed By: #### L [id number] ####[facility] [[email or web address] LAB ([facility] [place] [address] Potassium [Moles/Vol] 4.4 mmol/L Normal 3.5-5.1 [facility] Comment on above: Performed By: #### L [id number] ####[facility] [[email or web address] LAB ([facility] [place] [address] Sodium [Moles/Vol] 135 mmol/L Low 136-145 [facility] Comment on above: Performed By: #### L [id number] ####[facility] [[email or web address] LAB ([facility] [place] [address] Urea nitrogen [Mass/Vol] 27 mg/dL High 7-25 [facility] Comment on above: Performed By: #### L [id number] ####[facility] [[email or web address] LAB ([facility] [place] [address] UREA NITROGEN/CREATININE (MASS RATIO) IN SER/PLAS 36.[address] [facility] Comment on above: Performed By: #### L [id number] ####[facility] [[email or web address] LAB ([facility] [place] [address] CBCon 06-28-2024 Erythrocyte distribution width (RBC) [Ratio] 12.7 % Normal 11.5-15.0 [facility] Comment on above: Performed By: #### L [id number] ####[facility] [[email or web address] LAB ([facility] [place] [address] ERYTHROCYTE MEAN CORPUSCULAR HEMOGLOBIN CONCENTRATION (G/DL) BY AUTOMATED 33.3 g/dL Normal 32.0-35.0 [facility] Comment on above: Performed By: #### L [id number] ####[facility] [[email or web address] LAB ([facility] [place] [address] Hematocrit (Bld) [Volume fraction] 31.5 % Low 39.0-50.0 [facility] Comment on above: Performed By: #### L [id number] ####[facility] [[email or web address] LAB ([facility] [place] [address] Hemoglobin (Bld) [Mass/Vol] 10.5 g/dL Low 13.0-17.0 [facility] Comment on above: Performed By: #### L [id number] ####[facility] [[email or web address] LAB (BEAKER)[address] [place] [address] MCH (RBC) [Entitic mass] 30.4 pg Normal 27.0-33.0 [facility] Comment on above: Performed By: #### L [id number] ####[facility] (BEAKER)[address] [address] MCV (RBC) [Entitic vol] 91.3 fL Normal 82.0-98.0 [facility] Comment on above: Performed By: #### L [id number] ####[facility] [[email or web address] LAB (BEAKER)[address] [place] [address] PLATELETS (10*3/UL) IN BLOOD AUTOMATED COUNT 155 10*3/uL Normal 150-400 [facility] Comment on above: Performed By: #### L [id number] ####[facility] [[email or web address] LAB (BEAKER)[address] [place] [address] RBC (Bld) [#/Vol] 3.45 10*6/uL Low 4.20-5.70 [facility] Comment on above: Performed By: #### L [id number] ####[email or web address] LAB (BEAKER)[address] [place] [address] WBC (Bld) [#/Vol] 11.44 10*3/uL High 4.00-10.60 [facility] Comment on above: Performed By: #### L [id number] ####[facility] [[email or web address] LAB (BEAKER)[address] [address] CONSULTon 06-28-[address] [facility] [address]SULT Normal [facility] HEMOGLOBIN AND HEMATOCRIT, B LOODon 06-28-2024 Hematocrit (Bld) [Volume fraction] 30.6 % Low 39.0-50.0 [facility] Comment on above: Performed By: #### L [id number] ####[facility] [[email or web address] LAB (BEAKER)[address] [place] [address] Hemoglobin (Bld) [Mass/Vol] 10.0 g/dL Low 13.0-17.0 [facility] Comment on above: Performed By: #### L [id number] ####[facility] [[email or web address] LAB (BEAKER)[address] [place] [address] Hematocrit (Bld) [Volume fraction] 32.7 % Low 39.0-50.0 [facility] Comment on above: Performed By: #### L [id number] ####[facility] (BEAKER)[address] [place] [address] Hemoglobin (Bld) [Mass/Vol] 10.6 g/dL Low 13.0-17.0 [facility] Comment on above: Performed By: #### L [id number] ####[facility] [[email or web address] LAB (BEAKER)[address] [place] [address] Hematocrit (Bld) [Volume fraction] 31.5 % Low 39.0-50.0 [facility] Comment on above: Performed By: #### L [id number] ####[facility] [[email or web address] LAB (BEAKER)[address] [place] [address] Hemoglobin (Bld) [Mass/Vol] 10.4 g/dL Low 13.0-17.0 [facility] Comment on above: Performed By: #### L [id number] ####[facility] [[email or web address] LAB (BEAKER)[address] [place] [address] MAGNESIUMon 06-28-2024 Magnesium [Mass/Vol] 1.8 mg/dL Low 1.9-2.7 [facility] Comment on above: Performed By: #### L [id number] ####[email or web address] LAB (BEAKER)[address] [place] [address] ANESon 06-27-[address] [facility] ANES Normal [facility] HPon 06-27-[address] [facility] HP Normal [facility] HP [facility] Basophils Auto (Bld) [#/Vol] on 06-21-2024 Basophils (Bld) [#/Vol] Automated basophil count 0.0-0.1 [facility] Basophils (Bld) [#/Vol] 0.1 10 3/uL 0.0-0.1 [facility] Basophils/100 WBC Auto (Bld) on 06-21-2024 Basophils/100 WBC (Bld) Automated basophil % 0.2-2.0 [facility] Basophils/100 WBC (Bld) 0.8 % 0.2-2.0 [facility] Eosinophils/100 WBC Auto (Bl d)on 06-21-2024 Eosinophils/100 WBC (Bld) Automated eosinophil % 0.9-7.0 [facility] Eosinophils/100 WBC (Bld) 2.2 % 0.9-7.0 [facility] Erythrocyte distribution wid th Auto (RBC) [Ratio]on 06-21-2024 Erythrocyte distribution width (RBC) [Ratio] Erythrocyte distribution width [Ratio] by Automated count 11.0-15.0 [facility] Erythrocyte distribution width (RBC) [Ratio] 12.6 % 11.0-15.0 [facility] Estimated glomerular filtrat ion rate (GFR) non- Americanon 06-21-2024 GFR/1.73 sq M.predicted among non-blacks MDRD (S/P/Bld) [Vol rate/Area] Estimated glomerular filtration rate (GFR) non- >=60 mL/min/1.7 3m 2 [facility] GFR/1.73 sq M.predicted among non-blacks MDRD (S/P/Bld) [Vol rate/Area] mL/min/{1.73_m2} >=60 mL/min/1.7 3m 2 [facility] Hematocrit Auto (Bld) [Volum e fraction]on 06-21-2024 Hematocrit (Bld) [Volume fraction] Hematocrit [Volume Fraction] of Blood by Automated count Low 42.0-54.0 [facility] Hematocrit (Bld) [Volume fraction] 34.3 % Low 42.0-54.0 [facility] Hemoglobin [Mass/volume] in Bloodon 06-21-2024 Hemoglobin (Bld) [Mass/Vol] Hemoglobin [Mass/volume] in Blood Low 14.0-18.0 [facility] [facility] Hemoglobin (Bld) [Mass/Vol] 11.0 g/dL Low 14.0-18.0 [facility] Laboratory - Chemistry and C hemistry - challengeon 06-21-2024 Albumin [Mass/Vol] 3.0 g/dL Low 3.4-5.0 [facility] Calcium [Mass/Vol] 8.4 mg/dL Low 8.5-10.1 [facility] Chloride [Moles/Vol] 105 mmol/L 98-107 [facility] CO2 [Moles/Vol] 31.8 mmol/L 21.0-32.0 [facility] Creatinine [Mass/Vol] 1.04 mg/dL 0.70-1.[address] [facility] GFR/1.73 sq M.predicted MDRD (S/P/Bld) [Vol rate/Area] mL/min/{1.73_m2} >=60 mL/min/1.7 3m 2 [facility] Glucose [Mass/Vol] 119 mg/dL High 74-106 [facility] Potassium [Moles/Vol] 4.4 mmol/L 3.5-5.[address] [facility] Sodium [Moles/Vol] 140 mmol/L 136-145 [facility] Urea nitrogen [Mass/Vol] 16.0 mg/dL 7.0-18.0 [facility] Urea nitrogen/Creatinine [Mass ratio] 15.4 mg/mg [facility] Laboratory - Hematology and Cell countson 06-21-2024 Immature granulocytes/100 WBC (Bld) 0.3 % 0.0-0.5 [facility] Leukocytes [#/volume] correc shyann for nucleated erythrocytes in Blood by Automated counon 06-21-2024 WBC corrected for nucl RBC Auto (Bld) [#/Vol] Leukocytes [#/volume] corrected for nucleated erythrocytes in Blood by Automated coun 4.0-11.0 [facility] WBC corrected for nucl RBC Auto (Bld) [#/Vol] 6.4 10 3/uL 4.0-11.0 [facility] Lymphocytes Auto (Bld) [#/Vo l]on 06-21-2024 Lymphocytes (Bld) [#/Vol] Lymphocytes [#/volume] in Blood by Automated count Low 1.2-3.8 [facility] Lymphocytes (Bld) [#/Vol] 1.0 10 3/uL Low 1.2-3.8 [facility] Lymphocytes/100 WBC Auto (Bl d)on 06-21-2024 Lymphocytes/100 WBC (Bld) Lymphocytes/100 leukocytes in Blood by Automated count Low 20.5-60.0 [facility] Lymphocytes/100 WBC (Bld) 16.1 % Low 20.5-60.0 [facility] MCH Auto (RBC) [Entitic mass ]on 06-21-2024 MCH (RBC) [Entitic mass] MCH [Entitic mass] by Automated count 25.9-34.0 [facility] MCH (RBC) [Entitic mass] 29.6 pg 25.9-34.0 [facility] MCHC Auto (RBC) [Mass/Vol]on 06-21-2024 MCHC (RBC) [Mass/Vol] MCHC [Mass/volume] by Automated count 29.9-35.2 [facility] MCHC (RBC) [Mass/Vol] 32.1 g/dL 29.9-35.[address] [facility] MCV Auto (RBC) [Entitic vol] on 06-21-2024 MCV (RBC) [Entitic vol] MCV [Entitic volume] by Automated count 80.0-94.0 [facility] MCV (RBC) [Entitic vol] 92.5 fL 80.0-94.0 [facility] Monocytes Auto (Bld) [#/Vol] on 06-21-2024 Monocytes (Bld) [#/Vol] Automated blood monocyte count 0.3-0.8 [facility] Monocytes (Bld) [#/Vol] 0.8 10 3/uL 0.3-0.8 [facility] Monocytes/100 WBC Auto (Bld) on 06-21-2024 Monocytes/100 WBC (Bld) Automated monocyte % High 1.7-12.0 [facility] Monocytes/100 WBC (Bld) 13.0 % High 1.7-12.0 [facility] Neutrophils Auto (Bld) [#/Vo l]on 06-21-2024 Neutrophils (Bld) [#/Vol] Neutrophils [#/volume] in Blood by Automated count 1.4-6.5 [facility] Neutrophils (Bld) [#/Vol] 4.3 10 3/uL 1.4-6.5 [facility] Neutrophils/100 WBC Auto (Bl d)on 06-21-2024 Neutrophils/100 WBC (Bld) Automated neutrophil % 43.0-75.0 [facility] Neutrophils/100 WBC (Bld) 67.6 % 43.0-75.0 [facility] No Panel Informationon 06-21 Eosinophils # (Auto) 0.1 10 3/uL 0.0-0.[address] [facility] Immature Granulocyte # (Auto) 0.02 10 3/uL 0.00-0.03 [facility] Platelet mean volume Auto (B ld) [Entitic vol]on 06-21-2024 Platelet mean volume (Bld) [Entitic vol] Platelet mean volume [Entitic volume] in Blood by Automated count 9.5-13.5 [facility] Platelet mean volume (Bld) [Entitic vol] 9.7 fL 9.5-13.5 [facility] Platelets Auto (Bld) [#/Vol] on 06-21-2024 Platelets (Bld) [#/Vol] Platelets [#/volume] in Blood by Automated count Low 150-450 [facility] Platelets (Bld) [#/Vol] 147 10 3/uL Low 150-450 [facility] RBC Auto (Bld) [#/Vol]on RBC (Bld) [#/Vol] Erythrocytes [#/volu me] in Blood by Automated count Low 4.70-6.10 [facility] RBC (Bld) [#/Vol] 3.71 10 6/uL Low 4.70-6.10 [facility] Serum or plasma anion gap de terminationon 06-21-2024 Anion gap [Moles/Vol] Serum or plasma an ion gap determination [facility] Anion gap [Moles/Vol] 7.6 mmol/L [facility] Orders Onlyon 06-20-[address] [facility] Orders Onlyon 06-18-[address] [facility] Orders Onlyon 06-15-[address] [facility] CTA ABDOMEN PELVIS W IV CONT RASTon 06-06-2024 CTA ABDOMEN PELVIS W IV CONTRAST Invalid Interpretation Code [facility] CTA CHEST W IV CONTRASTon CTA CHEST W IV CONTRAST Invalid Interpretation Code [facility] [id number] 05-30-[id number] [facility] ANESon 05-30-[address] [facility] ANES Normal [facility] HISTOLOGY - TISSUE EXAMon LAB AP ADDENDUM 1 Normal [facility] Comment on above: Result Comment: A. I mmunohistochemical staining for Helicobacter pylori is negative. The control is satisfactory.Addendum electronically signed by Jez Vazquez MD on 06/07/2024 at 3:38 PM Performed By: #### L [id number] ####[facility] [[email or web address]] LAB (BEAKER)[address] [place] [address] LAB AP ASR DISCLAIMER Normal [facility] Comment on above: Performed By: #### L [id number] ####[facility] [[email or web address]] LAB (BEAKER)[address] [place] [address] LAB AP CASE REPORT Normal [facility] Comment on above: Result Comment: Surg ical Pathology Case: [id number] Provider: Frankie Brennan MD Collected: 05/30/2024 1351Ordering Location: [facility] Main Operating Room Received: 05/30/2024 1510Pathologist: KATE Sanchezpecimens: A) - Gastric, r/o h pylori B) - Proximal Esophagus, r/o EOE C) - Distal Esophagus, r/o EOE Performed By: #### L [id number] ####[facility] [[email or web address]] LAB (BEAKER)[address] [place] [address] LAB AP CLINICAL INFORMATION Order Diagnoses Normal [facility] Comment on above: Result Comment: R13. 11 - Oral phase dysphagia [ICD-10-CM] Performed By: #### L [id number] ####[facility] LAB (BEAKER)[address] [place] [address] LAB AP DIAGNOSIS COMMENT A. Immunohistochemical staining for Helicobacter pylori organisms is pending with results to follow in an addendum. [facility] Comment on above: Performed By: #### L [id number] ####[facility] [[email or web address]] LAB ([facility])[address] [place] [address] LAB AP GROSS DESCRIPTION A. Gastric. [facility] Comment on above: Result Comment: The specimen is received in formalin labeled Ch[place] Samuel and gastric biopsy. It consists of 3 bits and strips of galicia-pink irregular mucosal tissue ranging from 0.2 cm to 0.9 cm in greatest dimension. The specimen is submitted in toto in 1 cassette.Nubia Gutierrez, Pathologists' Assistant Hugo Feliciano, Pathologists' AssistantB. Proximal Esophagus.The specimen is received in formalin labeled Chico Samuel and proximal esophagus biopsy. It consists of 4 bits of galicia-pink irregular mucosal tissue ranging from 0.2 cm to 0.4 cm in greatest dimension. The specimen is submitted in toto in 1 cassette.Nubia Gutierrez Pathologists' Assistant Hugo Feliciano, Pathologists' AssistantC. Distal Esophagus.The specimen is received in formalin labeled Ch[place] Samuel and distal esophagus biopsy. It consists of 5 bits of galicia-pink irregular mucosal tissue ranging from 0.2 cm to 0.4 cm in greatest dimension. The specimen is submitted in toto in 1 cassette.Nubia Gutierrez Pathologists' Assistant Hugo Feliciano, Pathologists' Gore Cutter Performed By: #### L [id number] ####[facility] [[email or web address]] LAB ([facility])[address] [place] [address] LAB AP MICROSCOPIC DESCRIPTION Microscopic examination performed. [facility] Comment on above: Performed By: #### L [id number] ####[facility] [[email or web address]] LAB ([facility])[address] [place] [address] LAB AP REPORT FINAL DIAGNOSIS NARRATIVE [facility] Comment on above: Result Comment: A. S tomach, biopsy: -Chronic inactive gastritis. -No intestinal metaplasia identified. -See comment.B. Proximal esophagus, biopsy: -Squamous mucosa with no specific abnormality.-No intraepithelial eosinophils identified.C. Distal esophagus, biopsy: -Gastroesophageal junction mucosa with nonspecific chronic inflammation. -No intestinal metaplasia identified. Performed By: #### L [id number] ####[facility] [[email or web address]] LAB (BEAKER)[address] [place] [address] HPon 05-30-2024 HP H&P reviewed. The cora cee was examined and there are no changes to the H&P. Normal [facility] POCT GLUCOSE METER UNSOLICIT ED RESULTSon 05-30-2024 Glucose [Mass/Vol] 120 mg/dL High 70-105 [facility] Comment on above: Order Comment: Waive d Testing in the ED is performed under the ED CLIA certificate #[id number]. Result Comment: acas til5 Performed By: #### L [id number] ####[facility] [[email or web address]] LAB (BEAKER)[address] [place] [address] Prep for Procedureon 025 Prep for Procedure Normal [facility] Estimated glomerular filtrat ion rate (GFR) non- Americanon 05-25-2024 GFR/1.73 sq M.predicted among non-blacks MDRD (S/P/Bld) [Vol rate/Area] Estimated glomerular filtration rate (GFR) non- >=60 mL/min/1.[address] [place] [address] Laboratory - Chemistry and C hemistry - challengeon 05-25-2024 Calcium [Mass/Vol] 8.6 mg/dL 8.5-10.1 [facility] Chloride [Moles/Vol] 104 mmol/L 98-107 [facility] CO2 [Moles/Vol] 30.2 mmol/L 21.0-32.0 [facility] Creatinine [Mass/Vol] 0.97 mg/dL 0.70-1.[address] [facility] GFR/1.73 sq M.predicted MDRD (S/P/Bld) [Vol rate/Area] mL/min/{1.73_m2} >=60 mL/min/1.[address] [place] [address] Glucose [Mass/Vol] 96 mg/dL 74-106 [facility] Potassium [Moles/Vol] 4.4 mmol/L 3.5-5.[address] [facility] Sodium [Moles/Vol] 140 mmol/L 136-145 [facility] Urea nitrogen [Mass/Vol] 16.0 mg/dL 7.0-18.0 [facility] Urea nitrogen/Creatinine [Mass ratio] 16.5 mg/mg [facility] Orders Onlyon 05-25-[address] [facility] Serum or plasma anion gap de terminationon 05-25-2024 Anion gap [Moles/Vol] Serum or plasma an ion gap determination [facility] Orders Onlyon 05-23-[address] [facility] Orders Onlyon 05-19-[address] [facility] Orders Onlyon 05-18-[address] [facility] HPon 05-03-2024 HP [facility] Consulton 04-18-2024 Consult [facility] ANESon 04-12-[address] [facility] HPon 04-12-[address] [facility] HP Normal [facility] NURSNOTEon 04-12-[address] [facility] HPon 03-21-[address] [facility] Orders Onlyon 03-21-2024 Orders Only [facility] 36on 02-15-[address] Cerda - ok for patient to hold Eliquis 2 days prior to tooth extraction. Patient's and Dr. Mcgovern's office made aware. Patient's also made aware of stress test result per Dr. Cerda. He has follow up apt with him on 03/21/2024. [facility] Follow-Upon 01-19-2024 Follow-Up [facility] Orders Onlyon 01-19-[address] [facility] US aortaon 01-11-2024 US aorta [facility] [address] [place] [address] Ultrasound Report Signed Patient: Chico Baker MR#: [id number] 284 : 1940 Acct:[id number] Age/Sex: 83 / M ADM Date: 01/11/24 Loc: [facility] Room: Type: [facility] Attending Dr: Raul Quan MD Ordering Provider: [...] Raul Quan M.D.01/11/2024 11:12 AM Dictation Location: [place] [address] Tech: Harika Lorne Transcribed By: ALEX 01/11/24 111 Dictated By: Raul Quan MD 01/11/24 111 Signed By: 01/11/24 1112 Normal [facility] Basophils Auto (Bld) [#/Vol] on 12-17-2023 Basophils (Bld) [#/Vol] 0.1 10 3/uL 0.0-0.1 [facility] Basophils/100 WBC Auto (Bld) on 12-17-2023 Basophils/100 WBC (Bld) 0.7 % 0.2-2.0 [facility] Eosinophils/100 WBC Auto (Bl d)on 12-17-2023 Eosinophils/100 WBC (Bld) 1.4 % 0.9-7.0 [facility] Erythrocyte distribution wid th Auto (RBC) [Ratio]on 12-17-2023 Erythrocyte distribution width (RBC) [Ratio] 12.3 % 11.0-15.0 [facility] Hematocrit Auto (Bld) [Volum e fraction]on 12-17-2023 Hematocrit (Bld) [Volume fraction] 39.0 % Low 42.0-54.0 [facility] Hemoglobin [Mass/volume] in Bloodon 12-17-2023 Hemoglobin (Bld) [Mass/Vol] 12.7 g/dL Low 14.0-18.0 [facility] Laboratory - Hematology and Cell countson 12-17-2023 Immature granulocytes/100 WBC (Bld) 0.3 % 0.0-0.5 [facility] Leukocytes [#/volume] correc shyann for nucleated erythrocytes in Blood by Automated counon 12-17-2023 WBC corrected for nucl RBC Auto (Bld) [#/Vol] 10.7 10 3/uL 4.0-11.0 [facility] Lymphocytes Auto (Bld) [#/Vo l]on 12-17-2023 Lymphocytes (Bld) [#/Vol] 1.7 10 3/uL 1.2-3.8 [facility] Lymphocytes/100 WBC Auto (Bl d)on 12-17-2023 Lymphocytes/100 WBC (Bld) 15.7 % Low 20.5-60.0 [facility] MCH Auto (RBC) [Entitic mass ]on 12-17-2023 MCH (RBC) [Entitic mass] 30.4 pg 25.9-34.0 [facility] MCHC Auto (RBC) [Mass/Vol]on 12-17-2023 MCHC (RBC) [Mass/Vol] 32.6 g/dL 29.9-35.[address] [facility] MCV Auto (RBC) [Entitic vol] on 12-17-2023 MCV (RBC) [Entitic vol] 93.3 fL 80.0-94.0 [facility] Monocytes Auto (Bld) [#/Vol] on 12-17-2023 Monocytes (Bld) [#/Vol] 1.0 10 3/uL High 0.3-0.8 [facility] Monocytes/100 WBC Auto (Bld) on 12-17-2023 Monocytes/100 WBC (Bld) 9.7 % 1.7-12.0 [facility] Neutrophils Auto (Bld) [#/Vo l]on 12-17-2023 Neutrophils (Bld) [#/Vol] 7.7 10 3/uL High 1.4-6.5 [facility] Neutrophils/100 WBC Auto (Bl d)on 12-17-2023 Neutrophils/100 WBC (Bld) 72.2 % 43.0-75.0 [facility] No Panel Informationon 12-16 C-Reactive Protein, Quantitative 0.59 mg/dL High <=0.50 [facility] Eosinophils # (Auto) 0.2 10 3/uL 0.0-0.[address] [facility] Immature Granulocyte # (Auto) 0.03 10 3/uL 0.00-0.03 [facility] Clostridium difficile (PCR)(LAB) Positive Abnormal NEGATIVE [facility] Comment on above: RESULTS CALLED TO CARLOS A RICHARDS Miscellaneous Test Comment See comment [facility] Comment on above: Specimen Source: ST - Stool - Stool - 700.100 Stool Campylobacter Culture Res 1 \R\ Campylobacter Culture\R\ No Campylobacter species isolated. [facility] Comment on above: [facility], No Panel InformationOrdered By: Shailesh Dunham on 12-17-2023 E coli Shiga Toxin EIA Fi [facility] Salmonella/Shigella Screen [facility] Platelet mean volume Auto (B ld) [Entitic vol]on 12-17-2023 Platelet mean volume (Bld) [Entitic vol] 9.4 fL Low 9.5-13.5 [facility] Platelets Auto (Bld) [#/Vol] on 12-17-2023 Platelets (Bld) [#/Vol] 190 10 3/uL 150-450 [facility] RBC Auto (Bld) [#/Vol]on RBC (Bld) [#/Vol] 4.18 10 6/uL Low 4.70-6.10 [facility] US carotid doppler BIon 09-0 US carotid doppler BI [facility] [address] [place] [address] Ultrasound Report Signed Patient: SamuelChico pickard MR#: [id number] 284 : 1940 Acct:[id number] Age/Sex: 83 / M ADM Date: 11/15/23 Loc: [facility] Room: Type: [facility] Attending Dr: Raul Quan MD Ordering Provider: [...] Raul Quan M.D.11/15/2023 10:27 AM Dictation Location: [place] [address] Tech: Jennifer Addis Transcribed By: ALEX 11/15/23 1027 Dictated By: Raul Quan MD 11/15/23 1025 Signed By: 11/15/23 1027 Normal [facility] Basophils Auto (Bld) [#/Vol] on 10-26-2023 Basophils (Bld) [#/Vol] 0.1 10 3/uL 0.0-0.1 [facility] Basophils/100 WBC Auto (Bld) on 10-26-2023 Basophils/100 WBC (Bld) 0.5 % 0.2-2.0 [facility] Eosinophils/100 WBC Auto (Bl d)on 10-26-2023 Eosinophils/100 WBC (Bld) 2.9 % 0.9-7.0 [facility] Erythrocyte distribution wid th Auto (RBC) [Ratio]on 10-26-2023 Erythrocyte distribution width (RBC) [Ratio] 12.7 % 11.0-15.0 [facility] Estimated glomerular filtrat ion rate (GFR) non- Americanon 10-26-2023 GFR/1.73 sq M.predicted among non-blacks MDRD (S/P/Bld) [Vol rate/Area] mL/min/{1.73_m2} >=60 [facility] Globulin Calc (S) [Mass/Vol] on 10-26-2023 Globulin (S) [Mass/Vol] 3.9 g/dL [facility] Hematocrit Auto (Bld) [Volum e fraction]on 10-26-2023 Hematocrit (Bld) [Volume fraction] 32.4 % Low 42.0-54.0 [facility] Hemoglobin [Mass/volume] in Bloodon 10-26-2023 Hemoglobin (Bld) [Mass/Vol] 10.4 g/dL Low 14.0-18.0 [facility] Laboratory - Chemistry and C hemistry - challengeon 10-26-2023 Albumin [Mass/Vol] 3.1 g/dL Low 3.4-5.0 [facility] ALP [Catalytic activity/Vol] 106 U/L 46-116 [facility] ALT [Catalytic activity/Vol] 19 U/L 16-63 [facility] AST [Catalytic activity/Vol] 16 U/L 15-37 [facility] Bilirubin [Mass/Vol] 0.5 mg/dL 0.2-1.0 [facility] Calcium [Mass/Vol] 8.8 mg/dL 8.5-10.1 [facility] Chloride [Moles/Vol] 100 mmol/L 98-107 [facility] CO2 [Moles/Vol] 29.0 mmol/L 21.0-32.0 [facility] Creatinine [Mass/Vol] 0.95 mg/dL 0.70-1.[address] [facility] GFR/1.73 sq M.predicted MDRD (S/P/Bld) [Vol rate/Area] mL/min/{1.73_m2} >=60 [facility] Glucose [Mass/Vol] 134 mg/dL High 74-106 [facility] Potassium [Moles/Vol] 4.5 mmol/L 3.5-5.[address] [facility] Protein [Mass/Vol] 7.0 g/dL 6.4-8.2 [facility] Sodium [Moles/Vol] 136 mmol/L 136-145 [facility] TSH Qn 2.068 m[IU]/L 0.358-3.74 0 [facility] Urea nitrogen [Mass/Vol] 14.0 mg/dL 7.0-18.0 [facility] Urea nitrogen/Creatinine [Mass ratio] 14.7 mg/mg [facility] Laboratory - Hematology and Cell countson 10-26-2023 Immature granulocytes/100 WBC (Bld) 0.5 % 0.0-0.5 [facility] Leukocytes [#/volume] correc shyann for nucleated erythrocytes in Blood by Automated counon 10-26-2023 WBC corrected for nucl RBC Auto (Bld) [#/Vol] 12.4 10 3/uL High 4.0-11.0 [facility] Lymphocytes Auto (Bld) [#/Vo l]on 10-26-2023 Lymphocytes (Bld) [#/Vol] 1.4 10 3/uL 1.2-3.8 [facility] Lymphocytes/100 WBC Auto (Bl d)on 10-26-2023 Lymphocytes/100 WBC (Bld) 11.6 % Low 20.5-60.0 [facility] MCH Auto (RBC) [Entitic mass ]on 10-26-2023 MCH (RBC) [Entitic mass] 30.0 pg 25.9-34.0 [facility] MCHC Auto (RBC) [Mass/Vol]on 10-26-2023 MCHC (RBC) [Mass/Vol] 32.1 g/dL 29.9-35.[address] [facility] MCV Auto (RBC) [Entitic vol] on 10-26-2023 MCV (RBC) [Entitic vol] 93.4 fL 80.0-94.0 [facility] Monocytes Auto (Bld) [#/Vol] on 10-26-2023 Monocytes (Bld) [#/Vol] 1.4 10 3/uL High 0.3-0.8 [facility] Monocytes/100 WBC Auto (Bld) on 10-26-2023 Monocytes/100 WBC (Bld) 11.0 % 1.7-12.0 [facility] Neutrophils Auto (Bld) [#/Vo l]on 10-26-2023 Neutrophils (Bld) [#/Vol] 9.1 10 3/uL High 1.4-6.5 [facility] Neutrophils/100 WBC Auto (Bl d)on 10-26-2023 Neutrophils/100 WBC (Bld) 73.5 % 43.0-75.0 [facility] No Panel Informationon 10-25 Eosinophils # (Auto) 0.4 10 3/uL 0.0-0.[address] [facility] Immature Granulocyte # (Auto) 0.06 10 3/uL High 0.00-0.03 [facility] Platelet mean volume Auto (B ld) [Entitic vol]on 10-26-2023 Platelet mean volume (Bld) [Entitic vol] 9.2 fL Low 9.5-13.5 [facility] Platelets Auto (Bld) [#/Vol] on 10-26-2023 Platelets (Bld) [#/Vol] 209 10 3/uL 150-450 [facility] RBC Auto (Bld) [#/Vol]on RBC (Bld) [#/Vol] 3.47 10 6/uL Low 4.70-6.10 [facility] Serum or plasma albumin/glob ulin mass ratioon 10-26-2023 Albumin/Globulin [Mass ratio] 0.8 {ratio} [facility] Serum or plasma anion gap de terminationon 10-26-2023 Anion gap [Moles/Vol] 11.5 [facility] Basophils Auto (Bld) [#/Vol] on 10-17-2023 Basophils (Bld) [#/Vol] 0.0 10 3/uL 0.0-0.1 [facility] Basophils/100 WBC Auto (Bld) on 10-17-2023 Basophils/100 WBC (Bld) 0.2 % 0.2-2.0 [facility] Eosinophils/100 WBC Auto (Bl d)on 10-17-2023 Eosinophils/100 WBC (Bld) 1.6 % 0.9-7.0 [facility] Erythrocyte distribution wid th Auto (RBC) [Ratio]on 10-17-2023 Erythrocyte distribution width (RBC) [Ratio] 12.2 % 11.0-15.0 [facility] Estimated glomerular filtrat ion rate (GFR) non- Americanon 10-17-2023 GFR/1.73 sq M.predicted among non-blacks MDRD (S/P/Bld) [Vol rate/Area] mL/min/{1.73_m2} >=60 [facility] Globulin Calc (S) [Mass/Vol] on 10-17-2023 Globulin (S) [Mass/Vol] 3.5 g/dL [facility] Hematocrit Auto (Bld) [Volum e fraction]on 10-17-2023 Hematocrit (Bld) [Volume fraction] 29.1 % Low 42.0-54.0 [facility] Hemoglobin [Mass/volume] in Bloodon 10-17-2023 Hemoglobin (Bld) [Mass/Vol] 9.6 g/dL Low 14.0-18.0 [facility] Laboratory - Chemistry and C hemistry - challengeon 10-17-2023 Albumin [Mass/Vol] 2.8 g/dL Low 3.4-5.0 [facility] ALP [Catalytic activity/Vol] 99 U/L 46-116 [facility] ALT [Catalytic activity/Vol] 33 U/L 16-63 [facility] AST [Catalytic activity/Vol] 15 U/L 15-37 [facility] Bilirubin [Mass/Vol] 0.8 mg/dL 0.2-1.0 [facility] Calcium [Mass/Vol] 8.4 mg/dL Low 8.5-10.1 [facility] Chloride [Moles/Vol] 96 mmol/L Low 98-107 [facility] CO2 [Moles/Vol] 30.9 mmol/L 21.0-32.0 [facility] Creatinine [Mass/Vol] 0.84 mg/dL 0.70-1.[address] [facility] GFR/1.73 sq M.predicted MDRD (S/P/Bld) [Vol rate/Area] mL/min/{1.73_m2} >=60 [facility] Glucose [Mass/Vol] 103 mg/dL 74-106 [facility] Natriuretic peptide B (Bld) [Mass/Vol] 1963.0 pg/mL High <=1800.0 [facility] Comment on above: RESULTS CALLED TO MIMI Elaine RN @BY Fuad Carmona MLT at 0617 Potassium [Moles/Vol] 3.8 mmol/L 3.5-5.[address] [facility] Protein [Mass/Vol] 6.3 g/dL Low 6.4-8.2 [facility] Sodium [Moles/Vol] 130 mmol/L Low 136-145 [facility] Urea nitrogen [Mass/Vol] 28.0 mg/dL High 7.0-18.0 [facility] Urea nitrogen/Creatinine [Mass ratio] 33.3 mg/mg [facility] Laboratory - Hematology and Cell countson 10-17-2023 Immature granulocytes/100 WBC (Bld) 0.4 % 0.0-0.5 [facility] Leukocytes [#/volume] correc shyann for nucleated erythrocytes in Blood by Automated counon 10-17-2023 WBC corrected for nucl RBC Auto (Bld) [#/Vol] 9.1 10 3/uL 4.0-11.0 [facility] Lymphocytes Auto (Bld) [#/Vo l]on 10-17-2023 Lymphocytes (Bld) [#/Vol] 1.2 10 3/uL 1.2-3.8 [facility] Lymphocytes/100 WBC Auto (Bl d)on 10-17-2023 Lymphocytes/100 WBC (Bld) 13.5 % Low 20.5-60.0 [facility] MCH Auto (RBC) [Entitic mass ]on 10-17-2023 MCH (RBC) [Entitic mass] 30.2 pg 25.9-34.0 [facility] MCHC Auto (RBC) [Mass/Vol]on 10-17-2023 MCHC (RBC) [Mass/Vol] 33.0 g/dL 29.9-35.[address] [facility] MCV Auto (RBC) [Entitic vol] on 10-17-2023 MCV (RBC) [Entitic vol] 91.5 fL 80.0-94.0 [facility] Monocytes Auto (Bld) [#/Vol] on 10-17-2023 Monocytes (Bld) [#/Vol] 1.1 10 3/uL High 0.3-0.8 [facility] Monocytes/100 WBC Auto (Bld) on 10-17-2023 Monocytes/100 WBC (Bld) 12.0 % 1.7-12.0 [facility] Neutrophils Auto (Bld) [#/Vo l]on 10-17-2023 Neutrophils (Bld) [#/Vol] 6.6 10 3/uL High 1.4-6.5 [facility] Neutrophils/100 WBC Auto (Bl d)on 10-17-2023 Neutrophils/100 WBC (Bld) 72.3 % 43.0-75.0 [facility] No Panel Informationon 10-16 Eosinophils # (Auto) 0.2 10 3/uL 0.0-0.[address] [facility] Immature Granulocyte # (Auto) 0.04 10 3/uL High 0.00-0.03 [facility] Troponin I High Sensitivity 180.4 pg/mL High 4.0-76.1 [facility] Comment on above: RESULTS CALLED TO [...] volume (Bld) [Entitic vol] 9.7 fL 9.5-13.5 [facility] Platelets Auto (Bld) [#/Vol] on 10-17-2023 Platelets (Bld) [#/Vol] 191 10 3/uL 150-450 [facility] RBC Auto (Bld) [#/Vol]on RBC (Bld) [#/Vol] 3.18 10 6/uL Low 4.70-6.10 [facility] Serum or plasma albumin/glob ulin mass ratioon 10-17-2023 Albumin/Globulin [Mass ratio] 0.8 {ratio} [facility] Serum or plasma anion gap de terminationon 10-17-2023 Anion gap [Moles/Vol] 6.9 mmol/L [facility] Basophils Auto (Bld) [#/Vol] on 10-16-2023 Basophils (Bld) [#/Vol] 0.0 10 3/uL 0.0-0.1 [facility] Basophils/100 WBC Auto (Bld) on 10-16-2023 Basophils/100 WBC (Bld) 0.2 % 0.2-2.0 [facility] Basophils/100 WBC Manual cnt (Bld)on 10-16-2023 Basophils/100 WBC (Bld) 1.0 % 0.2-2.0 [facility] Eosinophils/100 WBC Auto (Bl d)on 10-16-2023 Eosinophils/100 WBC (Bld) 0.3 % Low 0.9-7.0 [facility] Eosinophils/100 WBC Manual c nt (Bld)on 10-16-2023 Eosinophils/100 WBC (Bld) 0.0 % Low 0.9-7.0 [facility] Erythrocyte distribution wid th Auto (RBC) [Ratio]on 10-16-2023 Erythrocyte distribution width (RBC) [Ratio] 12.4 % 11.0-15.0 [facility] Estimated glomerular filtrat ion rate (GFR) non- Americanon 10-16-2023 GFR/1.73 sq M.predicted among non-blacks MDRD (S/P/Bld) [Vol rate/Area] mL/min/{1.73_m2} >=60 [facility] Globulin Calc (S) [Mass/Vol] on 10-16-2023 Globulin (S) [Mass/Vol] 3.7 g/dL [facility] Hematocrit Auto (Bld) [Volum e fraction]on 10-16-2023 Hematocrit (Bld) [Volume fraction] 30.5 % Low 42.0-54.0 [facility] Hemoglobin [Mass/volume] in Bloodon 10-16-2023 Hemoglobin (Bld) [Mass/Vol] 10.2 g/dL Low 14.0-18.0 [facility] Laboratory - Chemistry and C hemistry - challengeon 10-16-2023 Albumin [Mass/Vol] 2.9 g/dL Low 3.4-5.0 [facility] ALP [Catalytic activity/Vol] 98 U/L 46-116 [facility] ALT [Catalytic activity/Vol] 45 U/L 16-63 [facility] AST [Catalytic activity/Vol] 19 U/L 15-37 [facility] Bilirubin [Mass/Vol] 0.8 mg/dL 0.2-1.0 [facility] Calcium [Mass/Vol] 8.3 mg/dL Low 8.5-10.1 [facility] Chloride [Moles/Vol] 97 mmol/L Low 98-107 [facility] CO2 [Moles/Vol] 31.7 mmol/L 21.0-32.0 [facility] Creatinine [Mass/Vol] 0.84 mg/dL 0.70-1.[address] [facility] GFR/1.73 sq M.predicted MDRD (S/P/Bld) [Vol rate/Area] mL/min/{1.73_m2} >=60 [facility] Glucose [Mass/Vol] 94 mg/dL 74-106 [facility] Natriuretic peptide B (Bld) [Mass/Vol] 4170.0 pg/mL High <=1800.0 [facility] Comment on above: RESULTS CALLED TO PRECIOUS MURPHY RN Potassium [Moles/Vol] 3.5 mmol/L 3.5-5.[address] [facility] Protein [Mass/Vol] 6.6 g/dL 6.4-8.2 [facility] Sodium [Moles/Vol] 132 mmol/L Low 136-145 [facility] Urea nitrogen [Mass/Vol] 31.0 mg/dL High 7.0-18.0 [facility] Urea nitrogen/Creatinine [Mass ratio] 36.9 mg/mg [facility] Laboratory - Hematology and Cell countson 10-16-2023 Lymphocytes/100 WBC (Bld) 12.0 % Low 20.5-60.0 [facility] Monocytes/100 WBC (Bld) 11.0 % 1.7-12.0 [facility] Immature granulocytes/100 WBC (Bld) 0.3 % 0.0-0.5 [facility] Leukocytes [#/volume] correc shyann for nucleated erythrocytes in Blood by Automated counon 10-16-2023 WBC corrected for nucl RBC Auto (Bld) [#/Vol] 11.6 10 3/uL High 4.0-11.0 [facility] Lymphocytes Auto (Bld) [#/Vo l]on 10-16-2023 Lymphocytes (Bld) [#/Vol] 1.4 10 3/uL 1.2-3.8 [facility] Lymphocytes/100 WBC Auto (Bl d)on 10-16-2023 Lymphocytes/100 WBC (Bld) 14.6 % Low 20.5-60.0 [facility] MCH Auto (RBC) [Entitic mass ]on 10-16-2023 MCH (RBC) [Entitic mass] 30.4 pg 25.9-34.0 [facility] MCHC Auto (RBC) [Mass/Vol]on 10-16-2023 MCHC (RBC) [Mass/Vol] 33.4 g/dL 29.9-35.[address] [facility] MCV Auto (RBC) [Entitic vol] on 10-16-2023 MCV (RBC) [Entitic vol] 91.0 fL 80.0-94.0 [facility] Monocytes Auto (Bld) [#/Vol] on 10-16-2023 Monocytes (Bld) [#/Vol] 1.1 10 3/uL High 0.3-0.8 [facility] Monocytes/100 WBC Auto (Bld) on 10-16-2023 Monocytes/100 WBC (Bld) 12.3 % High 1.7-12.0 [facility] Neutrophils Auto (Bld) [#/Vo l]on 10-16-2023 Neutrophils (Bld) [#/Vol] 6.7 10 3/uL High 1.4-6.5 [facility] Neutrophils/100 WBC Auto (Bl d)on 10-16-2023 Neutrophils/100 WBC (Bld) 72.3 % 43.0-75.0 [facility] No Panel Informationon 10-15 Absolute Basophils (Manual) 0.11 10 3/uL High 0.00-0.10 [facility] Eosinophils # (Manual) 0.00 10 3/uL 0.00-0.70 [facility] Lymphocytes # (Manual) 1.39 10 3/uL 1.20-3.80 [facility] Monocytes # (Manual) 1.27 10 3/uL High 0.30-0.80 [facility] Segmented Neutrophils # (Manual) 8.81 10 3/uL High 1.4-6.5 [facility] Aerobic Culture Result 1 \R\ Result 3\R\ TRAIN INSPECTOR [facility] Comment on above: [facility], Aerobic Culture Result 2 \R\ Result 4\R\ TRAIN INSPECTOR [facility] Comment on above: [facility], Gram Stain Comment (LAB) [facility] Gram Stain Result [address] [facility] Comment on above: [facility], Gram Stain Result [address] [facility] Comment on above: [facility], Miscellaneous Test Comment See comment [facility] Comment on above: Specimen Source: S - Sputum - Sputum - 300.100 Sputum Other Cells \R\ White Blood Cells [facility] Sputum Other Cells 2 \R\ Epithelial Cell s\R\ Few [facility] Comment on above: [facility], Eosinophils # (Auto) 0.0 10 3/uL 0.0-0.[address] [facility] Immature Granulocyte # (Auto) 0.03 10 3/uL 0.00-0.03 [facility] Troponin I High Sensitivity 209.6 pg/mL High 4.0-76.1 [facility] Comment on above: RESULTS CALLED TO [...] volume (Bld) [Entitic vol] 9.5 fL 9.5-13.5 [facility] Platelets Auto (Bld) [#/Vol] on 10-16-2023 Platelets (Bld) [#/Vol] 240 10 3/uL 150-450 [facility] RBC Auto (Bld) [#/Vol]on RBC (Bld) [#/Vol] 3.35 10 6/uL Low 4.70-6.10 [facility] Segmented neutrophils/100 WB C Manual cnt (Bld)on 10-16-2023 Segmented neutrophils/100 WBC (Bld) 76.0 % High 43.0-75.0 [facility] Serum or plasma albumin/glob ulin mass ratioon 10-16-2023 Albumin/Globulin [Mass ratio] 0.8 {ratio} [facility] Serum or plasma anion gap de terminationon 10-16-2023 Anion gap [Moles/Vol] 6.8 mmol/L [facility] Basophils Auto (Bld) [#/Vol] on 10-15-2023 Basophils (Bld) [#/Vol] 0.0 10 3/uL 0.0-0.1 [facility] Basophils/100 WBC Auto (Bld) on 10-15-2023 Basophils/100 WBC (Bld) 0.0 % Low 0.2-2.0 [facility] Cholesterol in LDL Calc [Mas s/Vol]on 10-15-2023 Cholesterol in LDL [Mass/Vol] 39.0 mg/dL [facility] Comment on above: <100 mg/dl [id number] 0-129 mg/dl NEAR OR ABOVE [id number] mg/dl BORDERLINE [id number] mg/dl HIGH>190 mg/dl VERY HIGH Cholesterol in VLDL Calc [Ma ss/Vol]on 10-15-2023 Cholesterol in VLDL [Mass/Vol] 11.2 mg/dL [facility] Eosinophils/100 WBC Auto (Bl d)on 10-15-2023 Eosinophils/100 WBC (Bld) 0.0 % Low 0.9-7.0 [facility] Erythrocyte distribution wid th Auto (RBC) [Ratio]on 10-15-2023 Erythrocyte distribution width (RBC) [Ratio] 12.4 % 11.0-15.0 [facility] Estimated glomerular filtrat ion rate (GFR) non- Americanon 10-15-2023 GFR/1.73 sq M.predicted among non-blacks MDRD (S/P/Bld) [Vol rate/Area] mL/min/{1.73_m2} >=60 [facility] Globulin Calc (S) [Mass/Vol] on 10-15-2023 Globulin (S) [Mass/Vol] 3.5 g/dL [facility] Hematocrit Auto (Bld) [Volum e fraction]on 10-15-2023 Hematocrit (Bld) [Volume fraction] 28.8 % Low 42.0-54.0 [facility] Hemoglobin [Mass/volume] in Bloodon 10-15-2023 Hemoglobin (Bld) [Mass/Vol] 9.6 g/dL Low 14.0-18.0 [facility] Laboratory - Chemistry and C hemistry - challengeon 10-15-2023 Albumin [Mass/Vol] 2.9 g/dL Low 3.4-5.0 [facility] ALP [Catalytic activity/Vol] 100 U/L 46-116 [facility] ALT [Catalytic activity/Vol] 50 U/L 16-63 [facility] AST [Catalytic activity/Vol] 27 U/L 15-37 [facility] Bilirubin [Mass/Vol] 0.8 mg/dL 0.2-1.0 [facility] Calcium [Mass/Vol] 8.7 mg/dL 8.5-10.1 [facility] Chloride [Moles/Vol] 99 mmol/L 98-107 [facility] Cholesterol [Mass/Vol] 89 mg/dL <=200 [facility] Cholesterol in HDL [Mass/Vol] 39 mg/dL Low 40-60 [facility] Comment on above: > or =60 mg/dl - LOW CARDIOVASCULAR RISK<40 mg/dl - HIGH CARDIOVASCULAR RISK CO2 [Moles/Vol] 26.8 mmol/L 21.0-32.0 [facility] Creatinine [Mass/Vol] 0.83 mg/dL 0.70-1.[address] [facility] GFR/1.73 sq M.predicted MDRD (S/P/Bld) [Vol rate/Area] mL/min/{1.73_m2} >=60 [facility] Glucose [Mass/Vol] 137 mg/dL High 74-106 [facility] Magnesium [Mass/Vol] 1.6 mg/dL Low 1.8-2.4 [facility] Potassium [Moles/Vol] 3.9 mmol/L 3.5-5.[address] [facility] Protein [Mass/Vol] 6.4 g/dL 6.4-8.2 [facility] Sodium [Moles/Vol] 134 mmol/L Low 136-145 [facility] Triglyceride [Mass/Vol] 56 mg/dL <=150 [facility] TSH Qn 0.543 m[IU]/L 0.358-3.74 0 [facility] Urea nitrogen [Mass/Vol] 20.0 mg/dL High 7.0-18.0 [facility] Urea nitrogen/Creatinine [Mass ratio] 24.1 mg/mg [facility] Laboratory - Hematology and Cell countson 10-15-2023 Immature granulocytes/100 WBC (Bld) 0.4 % 0.0-0.5 [facility] Leukocytes [#/volume] correc shyann for nucleated erythrocytes in Blood by Automated counon 10-15-2023 WBC corrected for nucl RBC Auto (Bld) [#/Vol] 8.2 10 3/uL 4.0-11.0 [facility] Lymphocytes Auto (Bld) [#/Vo l]on 10-15-2023 Lymphocytes (Bld) [#/Vol] 0.8 10 3/uL Low 1.2-3.8 [facility] Lymphocytes/100 WBC Auto (Bl d)on 10-15-2023 Lymphocytes/100 WBC (Bld) 9.2 % Low 20.5-60.0 [facility] MCH Auto (RBC) [Entitic mass ]on 10-15-2023 MCH (RBC) [Entitic mass] 30.3 pg 25.9-34.0 [facility] MCHC Auto (RBC) [Mass/Vol]on 10-15-2023 MCHC (RBC) [Mass/Vol] 33.3 g/dL 29.9-35.[address] [facility] MCV Auto (RBC) [Entitic vol] on 10-15-2023 MCV (RBC) [Entitic vol] 90.9 fL 80.0-94.0 [facility] Monocytes Auto (Bld) [#/Vol] on 10-15-2023 Monocytes (Bld) [#/Vol] 0.7 10 3/uL 0.3-0.8 [facility] Monocytes/100 WBC Auto (Bld) on 10-15-2023 Monocytes/100 WBC (Bld) 9.0 % 1.7-12.0 [facility] Neutrophils Auto (Bld) [#/Vo l]on 10-15-2023 Neutrophils (Bld) [#/Vol] 6.7 10 3/uL High 1.4-6.5 [facility] Neutrophils/100 WBC Auto (Bl d)on 10-15-2023 Neutrophils/100 WBC (Bld) 81.4 % High 43.0-75.0 [facility] No Panel Informationon 10-14 Troponin I High Sensitivity 214.0 pg/mL High 4.0-76.1 [facility] Comment on above: RESULTS CALLED TO [...] Granulocyte # (Auto) 0.03 10 3/uL 0.00-0.03 [facility] Platelet mean volume Auto (B ld) [Entitic vol]on 10-15-2023 Platelet mean volume (Bld) [Entitic vol] 10.1 fL 9.5-13.5 [facility] Platelets Auto (Bld) [#/Vol] on 10-15-2023 Platelets (Bld) [#/Vol] 152 10 3/uL 150-450 [facility] RBC Auto (Bld) [#/Vol]on RBC (Bld) [#/Vol] 3.17 10 6/uL Low 4.70-6.10 [facility] Serum or plasma albumin/glob ulin mass ratioon 10-15-2023 Albumin/Globulin [Mass ratio] 0.8 {ratio} [facility] Serum or plasma anion gap de terminationon 10-15-2023 Anion gap [Moles/Vol] 12.1 mmol/L [facility] Serum or plasma total choles terol/high density lipoprotein (HDL) cholesterol mass lalo 10-15-2023 Cholesterol.total/Chol esterol in HDL [Mass ratio] 2.3 {ratio} [facility] Comment on above: 3.3 - 4.4 LOW RISK4. 4 - 7.1 AVERAGE RISK7.1 - 11.0 MODERATE RISK>11.0 HIGH RISK Activated partial thrombopla stin time (aPTT) in platelet poor plasma by coagulation aon 10-14-2023 aPTT Coag (PPP) [Time] 30.8 s 22.3-36.2 [facility] Basophils Auto (Bld) [#/Vol] on 10-14-2023 Basophils (Bld) [#/Vol] 0.0 10 3/uL 0.0-0.1 [facility] Basophils/100 WBC Auto (Bld) on 10-14-2023 Basophils/100 WBC (Bld) 0.1 % Low 0.2-2.0 [facility] Eosinophils/100 WBC Auto (Bl d)on 10-14-2023 Eosinophils/100 WBC (Bld) 0.1 % Low 0.9-7.0 [facility] Erythrocyte distribution wid th Auto (RBC) [Ratio]on 10-14-2023 Erythrocyte distribution width (RBC) [Ratio] 12.2 % 11.0-15.0 [facility] Estimated glomerular filtrat ion rate (GFR) non- Americanon 10-14-2023 GFR/1.73 sq M.predicted among non-blacks MDRD (S/P/Bld) [Vol rate/Area] mL/min/{1.73_m2} >=60 [facility] Hematocrit Auto (Bld) [Volum e fraction]on 10-14-2023 Hematocrit (Bld) [Volume fraction] 31.6 % Low 42.0-54.0 [facility] Hemoglobin [Mass/volume] in Bloodon 10-14-2023 Hemoglobin (Bld) [Mass/Vol] 10.6 g/dL Low 14.0-18.0 [facility] INR in Platelet poor plasma by Coagulation assayon 10-14-2023 INR Coag (PPP) [Relative time] 1.11 {INR} [facility] Comment on above: DESIRED INR:2.0-3.0 CONDITIONS NOT LISTED BELOW2.5-3.5 FOR PROSTHETIC HEART VALVE REPLACEMENT2.5-3.5 RECURRENT THROMBOSIS Laboratory - Chemistry and C hemistry - challengeon 10-14-2023 Natriuretic peptide B (Bld) [Mass/Vol] 9227.0 pg/mL High <=1800.0 [facility] Comment on above: RESULTS CALLED TO KENDELL LOMBARDI/SHAREE IN ICU Calcium [Mass/Vol] 8.6 mg/dL 8.5-10.1 [facility] Chloride [Moles/Vol] 95 mmol/L Low 98-107 [facility] CO2 [Moles/Vol] 24.6 mmol/L 21.0-32.0 [facility] Creatinine [Mass/Vol] 0.97 mg/dL 0.70-1.[address] [facility] GFR/1.73 sq M.predicted MDRD (S/P/Bld) [Vol rate/Area] mL/min/{1.73_m2} >=60 [facility] Glucose [Mass/Vol] 176 mg/dL High 74-106 [facility] Potassium [Moles/Vol] 4.1 mmol/L 3.5-5.[address] [facility] Sodium [Moles/Vol] 130 mmol/L Low 136-145 [facility] Urea nitrogen [Mass/Vol] 20.0 mg/dL High 7.0-18.0 [facility] Urea nitrogen/Creatinine [Mass ratio] 20.6 mg/mg [facility] Laboratory - Hematology and Cell countson 10-14-2023 Immature granulocytes/100 WBC (Bld) 0.4 % 0.0-0.5 [facility] Leukocytes [#/volume] correc shyann for nucleated erythrocytes in Blood by Automated counon 10-14-2023 WBC corrected for nucl RBC Auto (Bld) [#/Vol] 15.7 10 3/uL High 4.0-11.0 [facility] Lymphocytes Auto (Bld) [#/Vo l]on 10-14-2023 Lymphocytes (Bld) [#/Vol] 1.4 10 3/uL 1.2-3.8 [facility] Lymphocytes/100 WBC Auto (Bl d)on 10-14-2023 Lymphocytes/100 WBC (Bld) 9.1 % Low 20.5-60.0 [facility] MCH Auto (RBC) [Entitic mass ]on 10-14-2023 MCH (RBC) [Entitic mass] 30.8 pg 25.9-34.0 [facility] MCHC Auto (RBC) [Mass/Vol]on 10-14-2023 MCHC (RBC) [Mass/Vol] 33.5 g/dL 29.9-35.[address] [facility] MCV Auto (RBC) [Entitic vol] on 10-14-2023 MCV (RBC) [Entitic vol] 91.9 fL 80.0-94.0 [facility] Monocytes Auto (Bld) [#/Vol] on 10-14-2023 Monocytes (Bld) [#/Vol] 1.5 10 3/uL High 0.3-0.8 [facility] Monocytes/100 WBC Auto (Bld) on 10-14-2023 Monocytes/100 WBC (Bld) 9.6 % 1.7-12.0 [facility] Neutrophils Auto (Bld) [#/Vo l]on 10-14-2023 Neutrophils (Bld) [#/Vol] 12.7 10 3/uL High 1.4-6.5 [facility] Neutrophils/100 WBC Auto (Bl d)on 10-14-2023 Neutrophils/100 WBC (Bld) 80.7 % High 43.0-75.0 [facility] No Panel Informationon 10-13 Troponin I High Sensitivity 279.3 pg/mL High 4.0-76.1 [facility] Comment on above: RESULTS CALLED TO [...] # (Auto) 0.07 10 3/uL High 0.00-0.03 [facility] Platelet mean volume Auto (B ld) [Entitic vol]on 10-14-2023 Platelet mean volume (Bld) [Entitic vol] 10.1 fL 9.5-13.5 [facility] Platelets Auto (Bld) [#/Vol] on 10-14-2023 Platelets (Bld) [#/Vol] 191 10 3/uL 150-450 [facility] Prothrombin time (PT)on PT Coag (PPP) [Time] 11.6 s 9.0-11.6 [facility] RBC Auto (Bld) [#/Vol]on RBC (Bld) [#/Vol] 3.44 10 6/uL Low 4.70-6.10 [facility] Serum or plasma anion gap de terminationon 10-14-2023 Anion gap [Moles/Vol] 14.5 mmol/L [facility] ECH echo limitedon ECH echo limited [facility] [place] [address] Echocardiogram Signed Patient: Chico Baker MR#: [id number] 284 : 1940 Acct:[id number] Age/Sex: 83 / M ADM Date: 08/31/23 Loc: Room: Type: [facility] Attending Dr: Sheri Christiansen MD Ordering Provider: Sheri Christiansen MD Date of Service: 08/31/23 [facility] echo limited: I35.0 - Nonrheumatic aortic (valve) stenosis Copies to: MD Judah Schmidt MD Ordering Physician: Sheri Christianesn Height: 65.5 in Weight: 140 lb Performed [...] Harrington MD 08/31/23 1723 Normal [facility] FPG ECG *CARDIOLOGY ONLY*on 08-19-2023 FPG ECG *CARDIOLOGY ONLY* [facility] Main [place] [id number] Electrocardiograph Report Signed Patient: Chico Baker MR#: [id number] 284 : 1940 Acct:[id number] Age/Sex: 83 / M ADM Date: 08/19/23 Loc: [facility] Room: Type: [facility] Attending Dr: Sheri Christiansen MD Ordering [...] rhythm Normal ECG Confirmed by Sheri Christiansen ([id number]) on 08/20/2023 12:14:54 AM Referred By: Electronically Signed By:Sheri Christiansen Transcribed By: MUS Signed By Sheri Christiansen MD 4 0014 Normal [facility] CT angio abdomen pelvison CT angio abdomen pelvis [facility] Main [address] [address] [address] Scan Report Signed Patient: Chico Baker MR#: [id number] 284 : 1940 Acct:[id number] Age/Sex: 83 / M ADM Date: 06/16/23 Loc: CT Room: Type: [facility] Attending Dr: Raul Quan MD Copies to: [...] aortic 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 The [place] aneurysmal sac is grossly unchanged in size [...] study. Impression dictated by: Woody Payan Jr., Marvin06/16/2023 1:59 PM Dictation Location: [place] [address] Transcribed By: [facility] 06/16/23 1359 Dictated By: Woody Payan Jr, DO 06/16/23 1351 Signed By: 06/16/23 1359 Normal [facility] ISTAT XRay CREon 06-16-2023 ISTAT GFR > 60.0 Normal [facility] Comment on above: Result Comment: PERF ORMED BY: [place] [address] PATHOLOGIST [employer] COMMANDING OFFICER ZENA CASTELLON M.D. Performed By: #### I SCRE #### [address] No Panel InformationOrdered By: Raul Quan on 06-16-2023 Bedside Estimated GFR (eGFR) > 60.0 [facility] Whole blood creatinine measu rementOrdered By: [...] doctor. Performed By: #### I SCRE #### [facility] [address] Calculus Analysison 05-12-19 24 Calcium oxalate dihydrate Infrared spectroscopy (Stone) [Mass fraction] 20 % Invalid Interpretation Code [facility] Comment on above: Performed By: #### 1 [id number] ####[facility] [address] [place] [address] Calcium oxalate monohydrate (Stone) [Mass fraction] 80 % Invalid Interpretation Code [facility] Comment on above: Performed By: #### 1 [id number] ####[facility] [address] [place] [address] Color (Stone) Brown Invalid Interpretation Code [facility] Comment on above: Performed By: #### 1 [id number] ####[facility] [address] [place] [address] Composition Comment Invalid Interpretation Code [facility] Comment on above: Result Comment: Perc entage (Represents the % composition) Performed By: #### 1 [id number] ####[facility] [address] [place] [address] Disclaimer: Comment Invalid Interpretation Code [facility] Comment on above: Result Comment: This test was developed and its performance characteristics determined by [employer]. It has not been cleared or approved by the Food and Drug Administration. Performed at: [address] [id number] Emanuel Silverman Performed By: #### 1 [id number] ####[facility] [address] [place] [address] Laboratory comment Daniel (Report) Comment Invalid Interpretation Code [facility] Comment on above: Result Comment: Mina aguilar questions regarding Calculi Analysis contact [facility] at: [phone]. Performed By: #### 1 [id number] ####[facility] [address] [place] [address] Please Note: Comment Invalid Interpretation Code [facility] Comment on above: Result Comment: Calc melissa report will follow via computer, mail or construction contractor delivery. Performed By: #### 1 [id number] ####[facility] [address] [place] [address] Size (Stone) [Entitic vol] 2x3 Invalid Interpretation Code [facility] Comment on above: Result Comment: Mult iple pieces received. Dimensions of the largest piece reported. Performed By: #### 1 [id number] ####[facility] [address] [place] [address] Specimen source subject Nom Comment Invalid Interpretation Code [facility] Comment on above: Result Comment: Not provided Performed By: #### 1 [id number] ####[facility] [address] [place] [address] Stone Photo Comment Invalid Interpretation Code [facility] Comment on above: Result Comment: Phot ograph will follow under a separate cover Performed By: #### 1 [id number] ####[facility] [address] [place] [address] Weight (Stone) 12 mg Invalid Interpretation Code [facility] Comment on above: Performed By: #### 1 [id number] ####[facility] [address] [place] [address] Consent for Procedure/Surger yon 05-05-2023 Consent for Procedure/Surgery [id number]#1.00TIFF Normal [facility] RAD - MISCon 05-05-2023 RAD - MISC [id number]#1.00TIFF Normal [facility] Ambulatory Visit Summaryon 0 05-04-2023 Ambulatory Visit Summary CHICO BAKER Abad :1940 Visit Date:05/04/2023 Ambulatory Visit Instructions Your [...] Contact prescribing physician if questions or concerns [facility] Prescription (#####) aspirin (aspirin 81 mg oral [...] Ivelisse Hassan MD Where: [facility] Patient Educationon 05-04-19 Patient Education Nephrology Dietary [...] ? 8 oz (237 mL) of milk, gsbtymw-ngurszylpkne-hywvi milk, and calcium-fortifiedfruit juice. Calcium-fortified means that [...] Spinach (cooked), rhubarb, beets, sweet potatoes, and Cypriot chard. ? Peanuts. ? Potato chips, south sudanese fries, and baked potatoes with skin on. ? Nuts and nut products. ? Chocolate. ? If you regularly take a diuretic medicine, make sure to eat at least 1 or 2 servings of fruits or vegetables that are high in potassium each day. These include: ? Avocado. ? Banana. ? Stephenson, prune, carrot, or tomato juice. ? Baked [...] fish oil, or vitamin B6. ? Take xoyn-azy-hncaiux and prescription medicines only as told by your health care provider. These include supplements. What foods sh (more content not included)... Normal [facility] RAD - MISCon 05-04-2023 RAD - MIS [id number]#1.00TIFF Kaushik Carmichael [facility] Urology Office/Clinic Noteon 05-04-2023 Urology Office/Clinic Note [...] w/KUB. All questions/concern (more content not included)... [facility] Comment on above: Result Comment: Elec tronically Signed By: Mo LEIJA, Ivelisse Schreiber\.br\Date and Time Signed: 05/04/23 12:02 EST\.br\Electronically Co-Signed By: Eleonora Belcher\.br\Date and Time Co-Signed: 05/04/23 11:47 EST Operative Reporton Operative Report [id number]#1.00TIFF [facility] Physician Orderon 04-29-2023 Physician Order [id number]#1.00TIFF [facility] RAD - MISCon 04-28-2023 RAD - MISC [id number]#1.00TIFF [facility] Consultation Noteon 04-23-19 Consultation Note [id number]#1.00TIFF [facility] Formson 04-23-2023 Forms [id number]#1.00TIFF [facility] Consent for Procedure/Surger yon 04-21-2023 Consent for Procedure/Surgery [id number]#1.00TIFF Normal [facility] Lab Reportson 04-21-2023 Lab Reports [id number]#1.00TIFF Normal [facility] Lab Reports [id number]#1.00TIFF Normal [facility] Activated partial thrombopla stin time (aPTT) in platelet poor plasma by coagulation aon 04-20-2023 aPTT Coag (PPP) [Time] 32.6 s 22.3-36.2 [facility] Basophils Auto (Bld) [#/Vol] on 04-20-2023 Basophils (Bld) [#/Vol] 0.1 10 3/uL 0.0-0.1 [facility] Basophils/100 WBC Auto (Bld) on 04-20-2023 Basophils/100 WBC (Bld) 0.5 % 0.2-2.0 [facility] Eosinophils/100 WBC Auto (Bl d)on 04-20-2023 Eosinophils/100 WBC (Bld) 1.2 % 0.9-7.0 [facility] Erythrocyte distribution wid th Auto (RBC) [Ratio]on 04-20-2023 Erythrocyte distribution width (RBC) [Ratio] 12.4 % 11.0-15.0 [facility] Estimated glomerular filtrat ion rate (GFR) non- Americanon 04-20-2023 GFR/1.73 sq M.predicted among non-blacks MDRD (S/P/Bld) [Vol rate/Area] mL/min/{1.73_m2} >=60 [facility] Formson 04-20-2023 Forms [id number]#1.00TIFF Normal [facility] Hematocrit Auto (Bld) [Volum e fraction]on 04-20-2023 Hematocrit (Bld) [Volume fraction] 36.7 % 42.0-54.0 [facility] Hemoglobin [Mass/volume] in Bloodon 04-20-2023 Hemoglobin (Bld) [Mass/Vol] 11.5 g/dL 14.0-18.0 [facility] INR in Platelet poor plasma by Coagulation assayon 04-20-2023 INR Coag (PPP) [Relative time] 1.01 {INR} [facility] Comment on above: DESIRED INR:2.0-3.0 CONDITIONS NOT LISTED BELOW2.5-3.5 FOR PROSTHETIC HEART VALVE REPLACEMENT2.5-3.5 RECURRENT THROMBOSIS Laboratory - Chemistry and C hemistry - challengeon 04-20-2023 Calcium [Mass/Vol] 9.0 mg/dL 8.5-10.1 [facility] Chloride [Moles/Vol] 104 mmol/L 98-107 [facility] CO2 [Moles/Vol] 28.9 mmol/L 21.0-32.0 [facility] Creatinine [Mass/Vol] 0.89 mg/dL 0.70-1.[address] [facility] GFR/1.73 sq M.predicted MDRD (S/P/Bld) [Vol rate/Area] mL/min/{1.73_m2} >=60 [facility] Glucose [Mass/Vol] 133 mg/dL 74-106 [facility] Potassium [Moles/Vol] 4.6 mmol/L 3.5-5.[address] [facility] Sodium [Moles/Vol] 140 mmol/L 136-145 [facility] Urea nitrogen [Mass/Vol] 15.0 mg/dL 7.0-18.0 [facility] Urea nitrogen/Creatinine [Mass ratio] 16.9 mg/mg [facility] Laboratory - Hematology and Cell countson 04-20-2023 Immature granulocytes/100 WBC (Bld) 0.3 % 0.0-0.5 [facility] Leukocytes [#/volume] correc shyann for nucleated erythrocytes in Blood by Automated counon 04-20-2023 WBC corrected for nucl RBC Auto (Bld) [#/Vol] 9.9 10 3/uL 4.0-11.0 [facility] Lymphocytes Auto (Bld) [#/Vo l]on 04-20-2023 Lymphocytes (Bld) [#/Vol] 1.1 10 3/uL 1.2-3.8 [facility] Lymphocytes/100 WBC Auto (Bl d)on 04-20-2023 Lymphocytes/100 WBC (Bld) 11.3 % 20.5-60.0 [facility] MCH Auto (RBC) [Entitic mass ]on 04-20-2023 MCH (RBC) [Entitic mass] 29.6 pg 25.9-34.0 [facility] MCHC Auto (RBC) [Mass/Vol]on 04-20-2023 MCHC (RBC) [Mass/Vol] 31.3 g/dL 29.9-35.[address] [facility] MCV Auto (RBC) [Entitic vol] on 04-20-2023 MCV (RBC) [Entitic vol] 94.6 fL 80.0-94.0 [facility] Monocytes Auto (Bld) [#/Vol] on 04-20-2023 Monocytes (Bld) [#/Vol] 0.8 10 3/uL 0.3-0.8 [facility] Monocytes/100 WBC Auto (Bld) on 04-20-2023 Monocytes/100 WBC (Bld) 8.5 % 1.7-12.0 [facility] Neutrophils Auto (Bld) [#/Vo l]on 04-20-2023 Neutrophils (Bld) [#/Vol] 7.8 10 3/uL 1.4-6.5 [facility] Neutrophils/100 WBC Auto (Bl d)on 04-20-2023 Neutrophils/100 WBC (Bld) 78.2 % 43.0-75.0 [facility] No Panel Informationon 04-20 Eosinophils # (Auto) 0.1 10 3/uL 0.0-0.[address] [facility] Immature Granulocyte # (Auto) 0.03 10 3/uL 0.00-0.03 [facility] Platelet mean volume Auto (B ld) [Entitic vol]on 04-20-2023 Platelet mean volume (Bld) [Entitic vol] 9.4 fL 9.5-13.5 [facility] Platelets Auto (Bld) [#/Vol] on 04-20-2023 Platelets (Bld) [#/Vol] 188 10 3/uL 150-450 [facility] Prothrombin time (PT)on 04-08 PT Coag (PPP) [Time] 10.7 s 9.0-11.6 [facility] RBC Auto (Bld) [#/Vol]on RBC (Bld) [#/Vol] 3.88 10 6/uL 4.70-6.10 [facility] Serum or plasma anion gap de terminationon 04-20-2023 Anion gap [Moles/Vol] 11.7 mmol/L [facility] RAD - MISCon 04-08-2023 [facility] [id number]#1.00TIFF Normal [facility] Operative Reporton Operative Report [id number]#1.00TIFF Normal [facility] RAD - MISCon 03-25-2023 RAD - [facility] [id number]#1.00TIFF Normal [facility] Consent for Procedure/Surger yon 03-22-2023 Consent for Procedure/Surgery [id number]#1.00TIFF Normal [facility] Lab Reportson 03-19-2023 Lab Reports [id number]#1.00TIFF Normal [facility] RAD - MISCon 03-19-2023 [facility] [id number]#1.00TIFF Normal [facility] Reminderson 03-03-2023 Reminders - From: Faviola Clemens To: EU - Recalls Luamy; Sent: 01/13/2023 10:01:25 EST Show up: 02/12/2023 10:01:00 EST Subject: LINDSEY and KUB Due Date/Time: 02/12/2023 10:01:00 EST Pt to have ILNDSEY and KUB done in March at [facility]. Orders placed. Possible ESWL pending size of stones. No follow up at this time. Pt to be called with results. Called pt and reminded him to complete LINDSEY/KUB @ [facility] in the next month. Orders were [...] RO Patient is scheduled for 03/24/22 @ [facility] Comment on above: Result Comment: Miss ing Attachment - attachment exceeds size limitation (02/19/2023) RAD - Ultrasound Report Can be viewed in source system Missing Attachment - attachment exceeds size limitation (02/19/2023) RAD - MISC Can be viewed in source system RAD - MISCon 02-22-2023 RAD - MISC [id number]#1.00TIFF [facility] RAD - Ultrasound Reporton RAD - Ultrasound Report [id number]#1.00TIFF [facility] Screenson 01-14-2023 Screens [id number]#1.00TIFF [facility] Screens [id number]#1.00TIFF [facility] Patient Educationon 01-14-20 Patient Education Urology Benign [...] Follow these instructions at home: ? Take srep-zbr-vijkhxq and prescription medicines only as told by [...] the medicine (more content not included)... Normal [facility] Urology Office/Clinic Noteon 01-13-2023 Urology [...] with voice recognition artificial intelligence software, specifically Infinit, Topple Track and or [employer]. Substitutions may have occurred due to the [...] stones no (more content not included)... Normal [facility] Comment on above: Result Comment: Elec tronically Signed By: Mo LEIJA, Ivelisse Schreiber\.br\Date and Time Signed: 01/13/23 16:25 EST\.br\Electronically Co-Signed By: Faviola Clemens\.br\Date and Time Co-Signed: 01/13/23 09:59 EST Screenson 10-08-2022 Screens [id number]#1.00CD:127 Normal [facility] Screens [id number]#1.00CD:127 Normal [facility] Ambulatory Visit Summaryon 0 10-07-2022 Ambulatory Visit Summary CHICO BAKER :1940 Visit Date:10/07/2022 Ambulatory Visit Instructions Your Diagnosis BPH with obstruction/lower urinary tract symptoms History of kidney stones Asymptomatic microscopic hematuria 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 Tests Performed Urnls Dip Stick Auto w/o Microscopy POC 67095 Your Care Team Attending Physician - Ivelisse [...] MD Where: [facility] Normal [facility] Patient Educationon 10-08-19 Patient Education Urology [...] Follow these instructions at home: ? Take dtdp-aru-vutszul and prescription medicines only as told by [...] the medicine (more content not included)... Normal [facility] Urology Office/Clinic Noteon 10-07-2022 Urology [...] neg, s (more content not included)... Normal [facility] Comment on above: Result Comment: Elec tronically Signed By: Mo LEIJA, Ivelisse Schreiber\.br\Date and Time Signed: 10/07/22 10:28 EDT\.br\Electronically Co-Signed By: Eleonora Belcher\.br\Date and Time Co-Signed: 10/07/22 09:25 EDT Consent for Procedure/Surger yon 07-29-2022 Consent for Procedure/Surgery [id number]#1.00CD:127 [facility] Patient Educationon 07-29-19 [...] these instructions at home: Medicines ? Take hauw-fgh-vebmhsq and prescription medicines only as told by [...] include cig (more content not included)... Normal [facility] Urology Office/Clinic Noteon 07-28-2022 Urology [...] urine The Urethra was dilated to: 16-24 Somali with connor sounds without difficulty Soft 14 [...] (erectile d (more content not included)... Normal [facility] Comment on above: Result Comment: Elec tronically Signed By: Mo LEIJA, Ivelisse Schreiber\.br\Date and Time Signed: 07/28/22 10:49 EDT\.br\Electronically Co-Signed By: Clarissa Joaquin MA\.br\Date and Time Co-Signed: 07/28/22 10:28 EDT Blood activated clotting sue e by coagulation assayOrdered By: Raul Quan on 07-08-2022 ACT Coag (Bld) 335 s 90-139 [facility] Comment on above: Reference Range: 90- 139 (Non-heparinized) Laboratory - CoagulationOrde red By: Raul Quan on 07-08-2022 PT Coag (PPP) [Time] 11.7 s 9.0-12.9 [facility] Platelet poor plasma interna tional normalized ratio (INR) by coagulation assay (relatOrdered By: Raul Quan on 07-08-2022 INR Coag (PPP) [Relative time] 1.0 {INR} [facility] Comment on above: INR Therapeutic Rang [...] 07-01-2022 ALT [Catalytic activity/Vol] 9 U/L 7-52 [facility] Albumin [Mass/volume] in Ser um or Plasma by Bromocresol green (BCG) dye binding methoOrdered By: Raul Quan on 07-01-2022 Albumin BCG dye [Mass/Vol] 3.7 g/dL 3.5-5.7 [facility] Alkaline phosphatase [Enzyma tic activity/volume] in Serum or PlasmaOrdered By: Raul Quan on 07-01-2022 ALP [Catalytic activity/Vol] 96 U/L 34-104 [facility] Aspartate aminotransferase [ Enzymatic activity/volume] in Serum or PlasmaOrdered By: Raul Quan on 07-01-2022 AST [Catalytic activity/Vol] 14 U/L 13-39 [facility] Basophils Auto (Bld) [#/Vol] Ordered By: Raul Quan on 07-01-2022 Basophils (Bld) [#/Vol] 0.1 10*3/uL 0.0-0.2 [facility] Basophils/100 WBC Auto (Bld) Ordered By: Raul Quan on 07-01-2022 Basophils/100 WBC (Bld) 0.7 % . [facility] Bilirubin.total [Mass/volume ] in Serum or PlasmaOrdered By: Raul Quan on 07-01-2022 Bilirubin [Mass/Vol] 0.5 mg/dL 0.3-1.0 [facility] Calcium [Mass/volume] in Ser um or PlasmaOrdered By: Raul Quan on 07-01-2022 Calcium [Mass/Vol] 8.5 mg/dL 8.6-10.3 [facility] Carbon dioxide, total [Moles /volume] in Serum or PlasmaOrdered By: Raul Quan on 07-01-2022 CO2 [Moles/Vol] 24.6 mmol/L 21.0-31.0 [facility] Chloride [Moles/volume] in S aisha or PlasmaOrdered By: Raul Quan on 07-01-2022 Chloride [Moles/Vol] 100 mmol/L 98-107 [facility] Creatinine [Mass/volume] in Serum or PlasmaOrdered By: Raul Quan on 07-01-2022 Creatinine [Mass/Vol] 0.87 mg/dL 0.70-1.[address] [facility] Eosinophils Auto (Bld) [#/Vo l]Ordered By: Raul Quan on 07-01-2022 Eosinophils (Bld) [#/Vol] 0.1 10*3/uL 0.0-0.45 [facility] Eosinophils/100 WBC Auto (Bl d)Ordered By: Raul Quan on 07-01-2022 Eosinophils/100 WBC (Bld) 1.5 % . [facility] Erythrocyte distribution wid th Auto (RBC) [Ratio]Ordered By: Raul Quan on 07-01-2022 Erythrocyte distribution width (RBC) [Ratio] 13.0 % 12.0-14.8 [facility] Globulin Calc (S) [Mass/Vol] Ordered By: Raul Quan on 07-01-2022 Globulin (S) [Mass/Vol] 3.4 g/dL [facility] Glucose [Mass/volume] in Ser um or PlasmaOrdered By: Raul Quan on 07-01-2022 Glucose [Mass/Vol] 163 mg/dL 70-100 [facility] Comment on above: ADA recommended refe rence rangeRandom Glucose Reference Range is dependent on time and content of last meal. Glucose of more than 200 mg/dL in a nonstressed, ambulatory subject supports the diagnosis of Diabetes Mellitus. Hematocrit Auto (Bld) [Volum e fraction]Ordered By: Raul Quan on 07-01-2022 Hematocrit (Bld) [Volume fraction] 36.4 % 38.8-50.0 [facility] Hemoglobin [Mass/volume] in BloodOrdered By: Raul Quan on 07-01-2022 Hemoglobin (Bld) [Mass/Vol] 12.1 g/dL 13.0-17.0 [facility] Leukocytes [#/volume] correc shyann for nucleated erythrocytes in Blood by Automated counOrdered By: Raul Quan on 07-01-2022 WBC corrected for nucl RBC Auto (Bld) [#/Vol] 8.5 10*3/uL 4.1-10.5 [facility] Lymphocytes Auto (Bld) [#/Vo l]Ordered By: Raul Quan on 07-01-2022 Lymphocytes (Bld) [#/Vol] 1.6 10*3/uL 1.00-4.8 [facility] Lymphocytes/100 WBC Auto (Bl d)Ordered By: Raul Quan on 07-01-2022 Lymphocytes/100 WBC (Bld) 19.3 % . [facility] MCH Auto (RBC) [Entitic mass ]Ordered By: Raul Quan on 07-01-2022 MCH (RBC) [Entitic mass] 30.2 pg 27.5-35.2 [facility] MCHC Auto (RBC) [Mass/Vol]Or dered By: Raul Quan on 07-01-2022 MCHC (RBC) [Mass/Vol] 33.3 g/dL 32.5-35.[address] [facility] MCV Auto (RBC) [Entitic vol] Ordered By: Raul Quan on 07-01-2022 MCV (RBC) [Entitic vol] 90.7 fL 83.5-101 [facility] [facility] Auto (Bld) [#/Vol] Ordered By: Raul Quan on 07-01-2022 Monocytes (Bld) [#/Vol] 0.9 10*3/uL 0.0-0.8 [facility] Monocytes/100 WBC Auto (Bld) Ordered By: Raul Quan on 07-01-2022 Monocytes/100 WBC (Bld) 11.1 % . [facility] Neutrophils Auto (Bld) [#/Vo l]Ordered By: Raul Quan on 07-01-2022 Neutrophils (Bld) [#/Vol] 5.7 10*3/uL 1.8-7.7 [facility] Neutrophils/100 WBC Auto (Bl d)Ordered By: Raul Quan on 07-01-2022 Neutrophils/100 WBC (Bld) 67.4 % . [facility] No Panel InformationOrdered By: Raul Quan on 07-01-2022 Estimated GFR (CKD-EPI) > 60.0 mL/Min [facility] Pharmacy Creatinine Clearance (Chem N/A [facility] Nucleated erythrocytes [Pres ence] in Blood by Automated countOrdered By: Raul Quan on 07-01-2022 Nucleated RBC Auto Ql (Bld) 0.0 /100{WBC} 0-0.5 [facility] Platelet mean volume Auto (B ld) [Entitic vol]Ordered By: Raul Quan on 07-01-2022 Platelet mean volume (Bld) [Entitic vol] 7.6 fL 6.6-10.1 [facility] Platelets Auto (Bld) [#/Vol] Ordered By: Raul Quan on 07-01-2022 Platelets (Bld) [#/Vol] 198 10*3/uL 150-450 [facility] Potassium [Moles/volume] in Serum or PlasmaOrdered By: Raul Quan on 07-01-2022 Potassium [Moles/Vol] 4.4 mmol/L 3.5-5.[address] [facility] Protein [Mass/volume] in Ser um or PlasmaOrdered By: Raul Quan on 07-01-2022 Protein [Mass/Vol] 7.1 g/dL 6.4-8.9 [facility] RBC Auto (Bld) [#/Vol]Ordere d By: Raul Quan on 07-01-2022 RBC (Bld) [#/Vol] 4.01 10*6/uL 3.90-5.60 [facility] Serum or plasma albumin/glob ulin mass ratioOrdered By: Raul Quan on 07-01-2022 Albumin/Globulin [Mass ratio] 1.1 {ratio} [facility] Serum or plasma anion gap de terminationOrdered By: Raul Quan on 07-01-2022 Anion gap [Moles/Vol] 13.8 mmol/L 6.0-15.0 [facility] Sodium [Moles/volume] in Ser um or PlasmaOrdered By: Raul Quan on 07-01-2022 Sodium [Moles/Vol] 134 mmol/L 136-145 [facility] Urea nitrogen [Mass/volume] in Serum or PlasmaOrdered By: Raul Quan on 07-01-2022 Urea nitrogen [Mass/Vol] 17 mg/dL 7-25 [facility] WBC Auto (Bld) [#/Vol]Ordere d By: Raul Quan on 07-01-2022 WBC (Bld) [#/Vol] 8.5 10*3/uL 4.1-10.5 [facility] Patient Educationon 06-25-19 Patient Education [...] these instructions at home: Medicines ? Take cqsf-qtz-blgjyap and prescription medicines only as told by [...] the blood stops without treatment. ? Take evok-qbw-tyhrbab and prescription medicines only as told by your health care provider. ? Drink enough fluid to keep your urine pale yellow. This information is not intended to replace advice given to you by your health care provider. Make sure you discuss any questions you have with your health care provider. Document Revised: 10/23/2020 Document Reviewed: 10/23/2020 [employer] Patient Education ? 2022 [employer] Normal [facility] Screenson 06-24-2022 Screens [id number]:127 Normal [facility] Screens [id number]#[id number]:127 Normal [facility] Urology Office/Clinic Noteon 06-24-2022 Urology [...] Urnls Dip Stick Auto w/o Microscopy POC 65821 Urology Procedure Order 4. Penile rash (R21: Rash and other nonspecific skin eruption) Pt states rash has completely cleared up after stopping Bactrim. Denies irritation. Head of penis is not red, but is discolored. Not bothersome. D/c use of cream. Resolved Ordered: Urology Procedure Order 5. ED (erectile dysfunction) (N52.9: Male erectile dysfunction, unspecified) (more content not included)... Normal [facility] Comment on above: Result Comment: Elec tronically Signed By: Mo LEIJA, Ivelisse Schreiber\.br\Date and Time Signed: 06/24/22 10:24 EDT RAD - CT Reporton 05-14-2022 RAD - CT Report [id number]#[id number]:127 Normal [facility] Creatinine (Bld) [Mass/Vol]O rdered By: Raul Quan on 05-11-2022 Creatinine [Mass/Vol] 0.9 mg/dL 0.6-1.[address] [facility] Comment on above: ER/ESD physician is notified/shown all ISTAT results.Critical values may be confirmed by laboratory testing ifdeemed necessary by ER attending doctor. No Panel InformationOrdered By: Raul Quan on 05-11-2022 POC Estimated GFR > 60 [facility] Comment on above: GFR estimated refere nce range: According to KDOQI guidelines, <60 ml/min/1.73m2 is sufficient to diagnose a patient with chronic kidney disease. POC Estimated GFR Non- Amer > 60 [facility] URINALYSISOrdered By: Kirstie sanchez on 04-15-2022 [...] Interpretation Code Negative [facility] UA Auto SS [place].plasma/[place] .RBC (Bld) [Mass ratio] 21-30 /HPF Invalid [...] [facility] UA Auto SS Urobilinogen Qn (U) 0.2379275 {Nikki'U}/dL Normal 0.0 - 1.0 EU/dL [facility] [...] Interpretation Code Negative [facility] UA Auto SS [place].plasma/[place] .RBC (Bld) [Mass ratio] 4-20 /HPF Normal 0-3/HPF [facility] UA Auto SS Nitrite Ql (U) Negative (02/11/22 10:38 AM) Normal Negative [facility] UA Auto SS pH (U) 5.5 *NA* (02/11/22 10:38 AM) Invalid Interpretation Code 5.0 - 9.0 [facility] UA Auto SS Protein (U) [Mass/Vol] Negative (02/11/22 10:38 AM) Normal Negative [facility] UA Auto SS Specific gravity (U) [Rel density] 1.020 *NA* (02/11/22 10:38 AM) Invalid Interpretation Code 1.005 - 1.030 [facility] UA Auto SS UA Spec Desc Random Urine (02/11/22 10:38 AM) Normal [facility] UA Auto SS Urobilinogen Qn (U) 0.4120503 {Nikki'U}/dL Normal 0.0 - 1.0 EU/dL [facility] UA Auto SS WBC Auto Ql (U) 1+ *ABN* (02/11/22 10:38 AM) Invalid Interpretation Code Negative [facility] UA Auto SS WBC LM.HPF (Urine sed) [#/Area] 0-5 /HPF Normal 0-5/HPF [facility] UA Auto SS Basophils Auto (Bld) [#/Vol] Ordered By: Raul Quan on 02-05-2022 Basophils (Bld) [#/Vol] 0.1 10*3/uL 0.0-0.2 [facility] Basophils/100 WBC Auto (Bld) Ordered By: Raul Quan on 02-05-2022 Basophils/100 WBC (Bld) 0.6 % . [facility] Creatinine and Glomerular fi ltration rate.predicted panel (S/P/Bld)Ordered By: Raul Quan on 02-05-2022 Creatinine [Mass/Vol] 0.94 mg/dL 0.64-1.[address] [facility] Eosinophils Auto (Bld) [#/Vo l]Ordered By: Raul Quan on 02-05-2022 Eosinophils (Bld) [#/Vol] 0.1 10*3/uL 0.0-0.45 [facility] Eosinophils/100 WBC Auto (Bl d)Ordered By: Raul Quan on 02-05-2022 Eosinophils/100 WBC (Bld) 0.7 % . [facility] Erythrocyte distribution wid th Auto (RBC) [Ratio]Ordered By: Raul Quan on 02-05-2022 Erythrocyte distribution width (RBC) [Ratio] 13.8 % 12.0-14.8 [facility] Estimated glomerular filtrat ion rate (GFR) non- AmericanOrdered By: Raul Quan on 02-05-2022 GFR/1.73 sq M.predicted among non-blacks MDRD (S/P/Bld) [Vol rate/Area] > 60 mL/Min [facility] Hematocrit Auto (Bld) [Volum e fraction]Ordered By: Raul Quan on 02-05-2022 Hematocrit (Bld) [Volume fraction] 34.6 % 38.8-50.0 [facility] Hemoglobin [Mass/volume] in BloodOrdered By: Raul Quan on 02-05-2022 Hemoglobin (Bld) [Mass/Vol] 11.4 g/dL 13.0-17.0 [facility] Leukocytes [#/volume] correc shyann for nucleated erythrocytes in Blood by Automated counOrdered By: Raul Quan on 02-05-2022 WBC corrected for nucl RBC Auto (Bld) [#/Vol] 10.3 10*3/uL 4.1-10.5 [facility] Lymphocytes Auto (Bld) [#/Vo l]Ordered By: Raul Quan on 02-05-2022 Lymphocytes (Bld) [#/Vol] 1.5 10*3/uL 1.00-4.8 [facility] Lymphocytes/100 WBC Auto (Bl d)Ordered By: Raul Quan on 02-05-2022 Lymphocytes/100 WBC (Bld) 14.4 % . [facility] MCH Auto (RBC) [Entitic mass ]Ordered By: Raul Quan on 02-05-2022 MCH (RBC) [Entitic mass] 30.1 pg 27.5-35.2 [facility] MCHC Auto (RBC) [Mass/Vol]Or dered By: Raul Quan on 02-05-2022 MCHC (RBC) [Mass/Vol] 32.9 g/dL 32.5-35.[address] [facility] MCV Auto (RBC) [Entitic vol] Ordered By: Raul Quan on 02-05-2022 MCV (RBC) [Entitic vol] 91.6 fL 83.5-101 [facility] Monocytes Auto (Bld) [#/Vol] Ordered By: Raul Quan on 02-05-2022 Monocytes (Bld) [#/Vol] 1.5 10*3/uL 0.0-0.8 [facility] Monocytes/100 WBC Auto (Bld) Ordered By: Raul Quan on 02-05-2022 Monocytes/100 WBC (Bld) 14.8 % . [facility] Neutrophils Auto (Bld) [#/Vo l]Ordered By: Raul Quan on 02-05-2022 Neutrophils (Bld) [#/Vol] 7.1 10*3/uL 1.8-7.7 [facility] Neutrophils/100 WBC Auto (Bl d)Ordered By: Raul Quan on 02-05-2022 Neutrophils/100 WBC (Bld) 69.5 % . [facility] No Panel InformationOrdered By: Raul Quan on 02-05-2022 Estimated GFR () > 60 mL/Min [facility] Comment on above: GFR estimated refere nce range: According to KDOQI guidelines, <60 ml/min/1.73m2 is sufficient to diagnose a patient with chronic kidney disease. Pharmacy Creatinine Clearance (Chem 57.50 [facility] Nucleated erythrocytes [Pres ence] in Blood by Automated countOrdered By: Raul Quan on 02-05-2022 Nucleated RBC Auto Ql (Bld) 0.1 /100{WBC} 0-0.5 [facility] Platelet mean volume Auto (B ld) [Entitic vol]Ordered By: Raul Quan on 02-05-2022 Platelet mean volume (Bld) [Entitic vol] 7.9 fL 6.6-10.1 [facility] Platelets Auto (Bld) [#/Vol] Ordered By: Raul Quan on 02-05-2022 Platelets (Bld) [#/Vol] 142 10*3/uL 150-450 [facility] Comment on above: Delta: 198 on RBC Auto (Bld) [#/Vol]Ordere d By: Raul Quan on 02-05-2022 RBC (Bld) [#/Vol] 3.77 10*6/uL 3.90-5.60 [facility] Serum or plasma anion gap de terminationOrdered By: Raul Quan on 02-05-2022 Anion gap [Moles/Vol] 10.4 mmol/L 6.0-15.0 [facility] Serum or plasma calcium richy urement (mass/volume)Ordered By: Raul Quan on 02-05-2022 Calcium [Mass/Vol] 8.4 mg/dL 8.2-10.2 [facility] Serum or plasma chloride young surement (moles/volume)Ordered By: Raul Quan on 02-05-2022 Chloride [Moles/Vol] 101 mmol/L 95-114 [facility] Serum or plasma glucose richy urement (mass/volume)Ordered By: Raul Quan on 02-05-2022 Glucose [Mass/Vol] 109 mg/dL 70-100 [facility] Comment on above: ADA recommended [...] on 02-05-2022 Sodium [Moles/Vol] 135 mmol/L 136-146 [facility] Serum or plasma total carbon dioxide measurement (moles/volume)Ordered By: Raul Quan on 02-05-2022 CO2 [Moles/Vol] 28.2 mmol/L 22.0-30.0 [facility] Serum or plasma urea nitroge n measurement (mass/volume)Ordered By: Raul Qaun on 02-05-2022 Urea nitrogen [Mass/Vol] 11 mg/dL 9- [facility] WBC Auto (Bld) [#/Vol]Ordere d By: Raul Quan on 02-05-2022 WBC (Bld) [#/Vol] 10.3 10*3/uL 4.1-10.5 [facility] Covid-19 PCR (CVDTB)on 01-07 SARS-CoV-2 (COVID-19) RNA JESSIE+probe Ql (Unsp spec) Not detected Normal NOT DETECTED [facility] Comment on above: Result Comment: This test is not yet approved or cleared by the [place] FDA. When there are no FDA-approved or cleared tests available, and other criteria are met, FDA can make tests available under an emergency access mechanism called an Emergency Use Authorization (EUA). The EUA for this test is supported by the Application Project Leader of Health and Human Service's (HHS's) declaration [...] By: #### C VDTB #### [facility] [address] [place] [address] Dr. Jodi Roman CBC AUTO DIFFon 12-08-2021 BASO # 0.1 103/ul Normal 0.0-0.1 [facility] Comment on above: Performed By: #### D ATA1C #### [facility] [address] [address] [address] Jodi Roman Basophils/100 WBC (Bld) 0.5 % Normal 0.2-2.0 [facility] Comment on above: Performed By: #### D ATA1C #### [facility] [address] [address] [address] Jodi Roman EO # 0.1 103/ul Normal 0.0-0.7 [facility] Comment on above: Performed By: #### D ATA1C #### [facility] [address] [address] [address] Jodi Roman Eosinophils/100 WBC (Bld) 1.4 % Normal 0.9-7.0 [facility] Comment on above: Performed By: #### D ATA1C #### [facility] [address] [address] [address] Jodi Roman Erythrocyte distribution width (RBC) [Ratio] 13.0 % Normal 11.0-15.0 [facility] Comment on above: Performed By: #### D ATA1C #### [facility] [address] [place] [address] Dr. Jodi Roman Hematocrit (Bld) [Volume fraction] 36.1 % Critically low 42.0-54.0 [facility] Comment on above: Performed By: #### D ATA1C #### [facility] [address] [address] [address] Jodi Roman Hemoglobin (Bld) [Mass/Vol] 11.2 g/dL Critically low 14.0-18.0 [facility] Comment on above: Performed By: #### D ATA1C #### [facility] [address] [address] [address] Jodi Roman IG # 0.04 10e3/ul Critically high 0.00-0.03 [facility] Comment on above: Performed By: #### D ATA1C #### [facility] [address] [address] [address] Jodi Roman IG % 0.4 % Normal 0.0-0.5 [facility] Comment on above: Performed By: #### D ATA1C #### [facility] [address] [address] [address] Jodi Roman LYMPH # 1.8 103/ul Normal 1.2-3.8 [facility] Comment on above: Performed By: #### D ATA1C #### [facility] [address] [place] [address] Dr. Jodi Roman Lymphocytes/100 WBC (Bld) 17.2 % Critically low 20.5-60.0 [facility] Comment on above: Performed By: #### D ATA1C #### [facility] [address] [place] [address] Dr. Jodi Roman MANUAL DIFF REQ NO Normal [facility] Comment on above: Performed By: #### D ATA1C #### [facility] [address] [place] [address] Dr. Jodi Roman MCH (RBC) [Entitic mass] 30.4 pg Normal 25.9-34.0 [facility] Comment on above: Performed By: #### D ATA1C #### [facility] [address] [place] [address] Dr. Jodi Roman MCHC (RBC) [Mass/Vol] 31.0 g/dL Normal 29.9-35.2 [facility] Comment on above: Performed By: #### D ATA1C #### [facility] [address] [place] [address] Dr. Jodi Roman MCV (RBC) [Entitic vol] 98.1 fL Critically high 80.0-94.0 [facility] Comment on above: Performed By: #### D ATA1C #### [facility] [address] [place] [address] Dr. Jodi Roman MONO # 1.0 103/ul Critically high 0.3-0.8 [facility] Comment on above: Performed By: #### D ATA1C #### [facility] [address] [address] [address] Jodi Roman Monocytes/100 WBC (Bld) 9.8 % Normal 1.7-12.0 [facility] Comment on above: Performed By: #### D ATA1C #### [facility] [address] [address] [address] Jodi Roman NEUT # 7.3 103/ul Critically high 1.4-6.5 [facility] Comment on above: Performed By: #### D ATA1C #### [facility] [address] [address] [address] Jodi Roman Neutrophils/100 WBC (Bld) 70.7 % Normal 43.0-75.0 [facility] Comment on above: Performed By: #### D ATA1C #### [facility] [address] [place] [address] Dr. Jodi Roman Platelet mean volume (Bld) [Entitic vol] 9.1 fL Critically low 9.5-13.5 [facility] Comment on above: Performed By: #### D ATA1C #### [facility] [address] [address] [address] Jodi Roman PLT 214 103/ul Normal 150-450 [facility] Comment on above: Performed By: #### D ATA1C #### [facility] [address] [place] [address] Dr. Jodi Roman RBC 3.68 106/ul Critically low 4.70-6.10 [facility] Comment on above: Performed By: #### D ATA1C #### [facility] [address] [place] [address] Dr. Jodi Roman WBC 10.3 103/ul Normal 4.0-11.0 [facility] Comment on above: Performed By: #### D ATA1C #### [facility] [address] [address] [address] Jodi Roman PROF CHEM 8 (BAS METB)on Anion gap [Moles/Vol] 9.7 mmol/L Normal [facility] Comment on above: Performed By: #### C BC #### [facility] [address] [address] [address] Jodi Roman Calcium [Mass/Vol] 8.9 mg/dL Normal 8.5-10.1 [facility] Comment on above: Performed By: #### C BC #### [facility] [address] [address] [address] Jodi Roman Chloride [Moles/Vol] 102 mmol/L Normal 98-107 [facility] Comment on above: Performed By: #### C BC #### [facility] [address] [place] [address] Dr. Jodi Roman CO2 [Moles/Vol] 31.0 mmol/L Normal 21.0-32.0 [facility] Comment on above: Performed By: #### C BC #### [facility] [address] [place] [address] Dr. Jodi Roman Creatinine [Mass/Vol] 0.85 mg/dL Normal 0.70-1.30 [facility] Comment on above: Performed By: #### C BC #### [facility] [address] [place] [address] Dr. Jodi Roman EGFR-AF UKRAINIAN >60 Normal >=60 [facility] Comment on above: Performed By: #### C BC #### [facility] [address] [place] [address] Dr. Jodi Roman EGFR-NON AF UKRAINIAN >60 Normal >=60 [facility] Comment on above: Performed By: #### C BC #### [facility] [address] [place] [address] Dr. Jodi Roman Glucose [Mass/Vol] 106 mg/dL Normal 74-106 [facility] Comment on above: Performed By: #### C BC #### [facility] [address] [place] [address] Dr. Jodi Roman Potassium [Moles/Vol] 4.7 mmol/L Normal 3.5-5.1 [facility] Comment on above: Performed By: #### C BC #### [facility] [address] [place] [address] Dr. Jodi Roman Sodium [Moles/Vol] 138 mmol/L Normal 136-145 [facility] Comment on above: Performed By: #### C BC #### [facility] [address] [address] [address] Jodi Roman Urea nitrogen [Mass/Vol] 14.0 mg/dL Normal 7.0-18.0 [facility] Comment on above: Performed By: #### C BC #### [facility] [id number] Jodi Roman Urea nitrogen/Creatinine [Mass ratio] 16.5 mg/mg Normal [facility] Comment on above: Performed By: #### C BC #### [facility] [id number] Jodi Roman XR CHEST 2 Von [...] Date: 2021-12-08 16:20 Normal [facility] Covid-19 PCR (CVDTB)on 11-07 SARS-CoV-2 (COVID-19) RNA JESSIE+probe Ql (Unsp spec) Not detected Normal NOT DETECTED [facility] Comment on above: Result Comment: This test is not yet approved or cleared by the [place] FDA. When there are no FDA-approved or cleared tests available, and other criteria are met, FDA can make tests available under an emergency access mechanism called an Emergency Use Authorization (EUA). The EUA for this test is supported by the Application Project Leader of Health and Human Service's (HHS's) declaration [...] By: #### C VDTB #### [facility] [address] [place] [address] Dr. Jodi Roman CBC AUTO DIFFon 11-11-2021 BASO # 0.1 103/ul Normal 0.0-0.1 [facility] Comment on above: Performed By: #### C BC #### [facility] [address] [place] [address] Dr. Jodi Roman Basophils/100 WBC (Bld) 0.5 % Normal 0.2-2.0 [facility] Comment on above: Performed By: #### C BC #### [facility] [address] [place] [address] Dr. Jodi Roman EO # 0.2 103/ul Normal 0.0-0.7 [facility] Comment on above: Performed By: #### C BC #### [facility] [address] [place] [address] Dr. Jodi Roman Eosinophils/100 WBC (Bld) 1.9 % Normal 0.9-7.0 [facility] Comment on above: Performed By: #### C BC #### [facility] [address] [place] [address] Dr. Jodi Roman Erythrocyte distribution width (RBC) [Ratio] 13.6 % Normal 11.0-15.0 [facility] Comment on above: Performed By: #### C BC #### [facility] [address] [place] [address] Dr. Jodi Roman Hematocrit (Bld) [Volume fraction] 28.6 % Critically low 42.0-54.0 [facility] Comment on above: Performed By: #### C BC #### [facility] [address] [place] [address] Dr. Jodi Roman Hemoglobin (Bld) [Mass/Vol] 9.4 g/dL Critically low 14.0-18.0 [facility] Comment on above: Performed By: #### C BC #### [facility] [address] [place] [address] Dr. Jodi Roman IG # 0.08 10e3/ul Critically high 0.00-0.03 [facility] Comment on above: Performed By: #### C BC #### [facility] [address] [place] [address] Dr. Jodi Roman IG % 0.8 % Critically high 0.0-0.5 [facility] Comment on above: Performed By: #### C BC #### [facility] [address] [place] [address] Dr. Jodi Roman LYMPH # 1.3 103/ul Normal 1.2-3.8 [facility] Comment on above: Performed By: #### C BC #### [facility] [address] [place] [address] Dr. Jodi Roman Lymphocytes/100 WBC (Bld) 13.0 % Critically low 20.5-60.0 [facility] Comment on above: Performed By: #### C BC #### [facility] [address] [place] [address] Dr. Jodi Roman MANUAL DIFF REQ NO Normal [facility] Comment on above: Performed By: #### C BC #### [facility] [address] [place] [address] Dr. Jodi Roman MCH (RBC) [Entitic mass] 31.5 pg Normal 25.9-34.0 [facility] Comment on above: Performed By: #### C BC #### [facility] [address] [place] [address] Dr. Jodi Roman MCHC (RBC) [Mass/Vol] 32.9 g/dL Normal 29.9-35.2 [facility] Comment on above: Performed By: #### C BC #### [facility] [address] [place] [address] Dr. Jodi Roman MCV (RBC) [Entitic vol] 96.0 fL Critically high 80.0-94.0 [facility] Comment on above: Performed By: #### C BC #### [facility] [address] [place] [address] Dr. Jodi Roman MONO # 1.1 103/ul Critically high 0.3-0.8 [facility] Comment on above: Performed By: #### C BC #### [facility] [address] [place] [address] Dr. Jodi Roman Monocytes/100 WBC (Bld) 10.7 % Normal 1.7-12.0 [facility] Comment on above: Performed By: #### C BC #### [facility] [address] [place] [address] Dr. Jodi Roman NEUT # 7.4 103/ul Critically high 1.4-6.5 [facility] Comment on above: Performed By: #### C BC #### [facility] [address] [place] [address] Dr. Jodi Roman Neutrophils/100 WBC (Bld) 73.1 % Normal 43.0-75.0 [facility] Comment on above: Performed By: #### C BC #### [facility] [address] [place] [address] Dr. Jodi Roman Platelet mean volume (Bld) [Entitic vol] 9.3 fL Critically low 9.5-13.5 [facility] Comment on above: Performed By: #### C BC #### [facility] [address] [place] [address] Dr. Jodi Roman PLT 288 103/ul Normal 150-450 [facility] Comment on above: Performed By: #### C BC #### [facility] [address] [place], [place] [id number] Dr. Jodi Roman RBC 2.98 106/ul Critically low 4.70-6.10 [facility] Comment on above: Performed By: #### C BC #### [facility] [address] [place] [address] Dr. Jodi Roman WBC 10.1 103/ul Normal 4.0-11.0 [facility] Comment on above: Performed By: #### C #### [facility] [address] ABD/PELVIS WO CONon [...] Date: 2021-11-11 03:10 Normal [facility] Covid-19 PCR (CVDTBH)on SARS-CoV-2 (COVID-19) RNA JESSIE+probe Ql (Unsp spec) Not detected Normal NOT DETECTED [facility] Comment on above: Result Comment: When [...] for this test is supported by the Application [employer] Leader of Health and Human Service's declaration that [...] By: #### C BC #### [facility] [address] [address] [address] Jodi LOOMIS BLD IMMUNO SCREENon OCCULT BLOOD Negative Normal NEGATIVE [facility] Comment on above: Performed By: #### D ATA1C #### [facility] [address] [address] [address] Jodi Roman PROF 14(COMP METB)on 022 Albumin [Mass/Vol] 3.0 g/dL Critically low 3.4-5.0 [facility] Comment on above: Performed By: #### C MP #### [facility] [address] [address] [address] Jodi Roman Albumin/Globulin [Mass ratio] 0.8 {ratio} Normal [facility] Comment on above: Performed By: #### C MP #### [facility] [address] [place] [address] Dr. Jodi Roman ALP [Catalytic activity/Vol] 126 U/L Critically high 46-116 [facility] Comment on above: Performed By: #### C MP #### [facility] [address] [place] [address] Dr. Jodi Roman ALT [Catalytic activity/Vol] 22 U/L Normal 16-63 [facility] Comment on above: Performed By: #### C MP #### [facility] [address] [place] [address] Dr. Jodi Roman Anion gap [Moles/Vol] 16.7 mmol/L Normal [facility] Comment on above: Performed By: #### C MP #### [facility] [address] [address] [address] Jodi Roman AST [Catalytic activity/Vol] 23 U/L Normal 15-37 [facility] Comment on above: Performed By: #### C MP #### [facility] [address] [place] [address] Dr. Jodi Roman Bilirubin [Mass/Vol] 0.6 mg/dL Normal 0.2-1.0 [facility] Comment on above: Performed By: #### C MP #### [facility] [address] [place] [address] Dr. Jodi Roman Calcium [Mass/Vol] 8.5 mg/dL Normal 8.5-10.1 [facility] Comment on above: Performed By: #### C MP #### [facility] [address] [address] [address] Jodi Roman Chloride [Moles/Vol] 99 mmol/L Normal 98-107 [facility] Comment on above: Performed By: #### C MP #### [facility] [address] [address] [address] Jodi Roman CO2 [Moles/Vol] 27.4 mmol/L Normal 21.0-32.0 [facility] Comment on above: Performed By: #### C MP #### [facility] [address] [address] [address] Jodi Roman Creatinine [Mass/Vol] 0.80 mg/dL Normal 0.70-1.30 [facility] Comment on above: Performed By: #### C MP #### [facility] [address] [place] [address] Dr. Jodi Roman EGFR-AF UKRAINIAN >60 Normal >=60 [facility] Comment on above: Performed By: #### C MP #### [facility] [address] [place] [address] Dr. Jodi Roman EGFR-NON AF UKRAINIAN >60 Normal >=60 [facility] Comment on above: Performed By: #### C MP #### [facility] [address] [place] [address] Dr. Jodi Roman Globulin (S) [Mass/Vol] 3.9 g/dL Normal [facility] Comment on above: Performed By: #### C MP #### [facility] [address] [place] [address] Dr. Jodi Roman Glucose [Mass/Vol] 116 mg/dL Critically high 74-106 T [facility] Comment on above: Performed By: #### C MP #### [facility] [address] [place] [address] Dr. Jodi Roman Potassium [Moles/Vol] 4.1 mmol/L Normal 3.5-5.1 [facility] Comment on above: Performed By: #### C MP #### [facility] [address] [place], [place] [address] Dr. Jodi Roman Protein [Mass/Vol] 6.9 g/dL Normal 6.4-8.2 [facility] Comment on above: Performed By: #### C MP #### [facility] [address] [place] [address] Dr. Jodi Roman Sodium [Moles/Vol] 129 mmol/L Critically low 136-145 Th e [facility] Comment on above: Performed By: #### C MP #### [facility] [address] [address] [address] Jodi Roman Urea nitrogen [Mass/Vol] 15.0 mg/dL Normal 7.0-18.0 [facility] Comment on above: Performed By: #### C MP #### [facility] [address] [place] [address] Dr. Jodi Roman Urea nitrogen/Creatinine [Mass ratio] 18.8 mg/mg Normal [facility] Comment on above: Performed By: #### C MP #### [facility] [address] [place] [address] Dr. Jodi Roman PROTIMEon 11-11-2021 INR Coag (PPP) [Relative time] 1.01 {INR} Normal [facility] Comment on above: Performed By: #### P TT, PT #### [facility] [address] [place] [address] Dr. Jodi Roman INR GUIDELINES SEE BELOW Normal [facility] Comment on above: Result Comment: ESHA RED INR: 2.0 - 3.0 CONDITIONS NOT LISTED BELOW 2.5 - 3.5 FOR PROSTHETIC HEART VALVE REPLACEMENT 2.5 - 3.5 RECURRENT THROMBOSIS Performed By: #### P TT, PT #### [facility] [address] [place] [address] Dr. Jodi Roman PT Coag (PPP) [Time] 10.9 s Normal 9.0-11.6 [facility] Comment on above: Performed By: #### P TT, PT #### [facility] [address] [place] [address] Dr. Jodi Roman PTTon 11-11-2021 aPTT Coag (Bld) [Time] 25.4 s Normal 22.3-36.2 Th e [facility] Comment on above: Performed By: #### P TT, PT #### [facility] [address] [place] [address] Dr. Jodi Roman CBC AUTO DIFFon 10-26-2021 BASO # 0.0 103/ul Normal 0.0-0.1 [facility] Comment on above: Performed By: #### D ATA1C #### [facility] [address] [place] [address] Dr. Jodi Roman Basophils/100 WBC (Bld) 0.3 % Normal 0.2-2.0 [facility] Comment on above: Performed By: #### D ATA1C #### [facility] [address] [place] [address] Dr. Jodi Roman EO # 0.1 103/ul Normal 0.0-0.7 [facility] Comment on above: Performed By: #### D ATA1C #### [facility] [address] [place] [address] Dr. Jodi Roman Eosinophils/100 WBC (Bld) 0.5 % Critically low 0.9-7.0 [facility] Comment on above: Performed By: #### D ATA1C #### [facility] [address] [place] [address] Dr. Jodi Roman Erythrocyte distribution width (RBC) [Ratio] 12.4 % Normal 11.0-15.0 [facility] Comment on above: Performed By: #### D ATA1C #### [facility] [address] [place] [address] Dr. Jodi Roman Hematocrit (Bld) [Volume fraction] 39.5 % Critically low 42.0-54.0 [facility] Comment on above: Performed By: #### D ATA1C #### [facility] [address] [place] [address] Dr. Jodi Roman Hemoglobin (Bld) [Mass/Vol] 12.8 g/dL Critically low 14.0-18.0 [facility] Comment on above: Performed By: #### D ATA1C #### [facility] [address] [address] [address] Jodi Roman IG # 0.07 10e3/ul Critically high 0.00-0.03 [facility] Comment on above: Performed By: #### D ATA1C #### [facility] [address] [address] [address] Jodi Roman IG % 0.5 % Normal 0.0-0.5 [facility] Comment on above: Performed By: #### D ATA1C #### [facility] [address] [address] [address] Jodi Roman LYMPH # 0.9 103/ul Critically low 1.2-3.8 [facility] Comment on above: Performed By: #### D ATA1C #### [facility] [address] [place] [address] Dr. Jodi Roman Lymphocytes/100 WBC (Bld) 6.3 % Critically low 20.5-60.0 [facility] Comment on above: Performed By: #### D ATA1C #### [facility] [address] [place] [address] Dr. Jodi Roman MANUAL DIFF REQ NO Normal [facility] Comment on above: Performed By: #### D ATA1C #### [facility] [address] [place] [address] Dr. Jodi Roman MCH (RBC) [Entitic mass] 30.8 pg Normal 25.9-34.0 [facility] Comment on above: Performed By: #### D ATA1C #### [facility] [address] [address] [address] Jodi Roman MCHC (RBC) [Mass/Vol] 32.4 g/dL Normal 29.9-35.2 [facility] Comment on above: Performed By: #### D ATA1C #### [facility] [address] [address] [address] Jodi Roman MCV (RBC) [Entitic vol] 95.2 fL Critically high 80.0-94.0 [facility] Comment on above: Performed By: #### D ATA1C #### [facility] [address] [address] [address] Jodi Roman MONO # 0.9 103/ul Critically high 0.3-0.8 [facility] Comment on above: Performed By: #### D ATA1C #### [facility] [address] [place] [address] Dr. Jodi Roman Monocytes/100 WBC (Bld) 6.2 % Normal 1.7-12.0 [facility] Comment on above: Performed By: #### D ATA1C #### [facility] [address] [place] [address] Dr. Jodi Roman NEUT # 12.8 103/ul Critically high 1.4-6.5 [facility] Comment on above: Performed By: #### Chavez ATA1C #### [facility] [address] [place] [address] Dr. Jodi Roman Neutrophils/100 WBC (Bld) 86.2 % Critically high 43.0-75.0 [facility] Comment on above: Performed By: #### Chavez ATA1C #### [facility] [address] [place] [address] Dr. Jodi Roman Platelet mean volume (Bld) [Entitic vol] 9.4 fL Critically low 9.5-13.5 [facility] Comment on above: Performed By: #### D ATA1C #### [facility] [address] [place] [address] Dr. Jodi Roman PLT 169 103/ul Normal 150-450 [facility] Comment on above: Performed By: #### Chavez ATA1C #### [facility] [address] [place] [address] Dr. Jodi Roman RBC 4.15 106/ul Critically low 4.70-6.10 [facility] Comment on above: Performed By: #### D ATA1C #### [facility] [address] [place] [address] Dr. Jodi Roman WBC 14.8 103/ul Critically high 4.0-11.0 [facility] Comment on above: Performed By: #### Chavez ATA1C #### [facility] [address] [place] [address] CHEST WO CONon [...] Date: 2021-10-26 17:38 Normal [facility] Covid-19 PCR (CVDTB)on 10-07 SARS-CoV-2 (COVID-19) RNA JESSIE+probe Ql (Unsp spec) Not detected Normal NOT DETECTED [facility] Comment on above: Result Comment: When [...] for this test is supported by the [employer] of Health and Human Service's declaration that [...] By: #### D ATA1C #### [facility] [address] [place] [address] Dr. Jodi Roman PROF CHEM 8 (BAS METB)on Anion gap [Moles/Vol] 11.7 mmol/L Normal Th [facility] Comment on above: Performed By: #### C BC #### [facility] [address] [place] [address] Dr. Jodi Roman Calcium [Mass/Vol] 9.2 mg/dL Normal 8.5-10.1 [facility] Comment on above: Performed By: #### C BC #### [facility] [address] [place] [address] Dr. Jodi Roman Chloride [Moles/Vol] 101 mmol/L Normal 98-107 [facility] Comment on above: Performed By: #### C BC #### [facility] [address] [place] [address] Dr. Jodi Roman CO2 [Moles/Vol] 27.6 mmol/L Normal 21.0-32.0 [facility] Comment on above: Performed By: #### C BC #### [facility] [address] [place] [address] Dr. Jodi Roman Creatinine [Mass/Vol] 0.98 mg/dL Normal 0.70-1.30 [facility] Comment on above: Performed By: #### C BC #### [facility] [address] [place] [address] Dr. Jodi Roman EGFR-AF UKRAINIAN >60 Normal >=60 [facility] Comment on above: Performed By: #### C BC #### [facility] [address] [place] [address] Dr. Jodi Roman EGFR-NON AF UKRAINIAN >60 Normal >=60 [facility] Comment on above: Performed By: #### C BC #### [facility] [address] [address] [address] Jodi Roman Glucose [Mass/Vol] 119 mg/dL Critically high 74-106 T [facility] Comment on above: Performed By: #### C BC #### [facility] [address] [address] [address] Jodi Roman Potassium [Moles/Vol] 4.3 mmol/L Normal 3.5-5.1 [facility] Comment on above: Performed By: #### C BC #### [facility] [address] [place] [address] Dr. Jodi Roman Sodium [Moles/Vol] 136 mmol/L Normal 136-145 [facility] Comment on above: Performed By: #### C BC #### [facility] [address] [place] [address] Dr. Jodi Roman Urea nitrogen [Mass/Vol] 15.0 mg/dL Normal 7.0-18.0 [facility] Comment on above: Performed By: #### C BC #### [facility] [address] [place] [address] Dr. Jodi Roman Urea nitrogen/Creatinine [Mass ratio] 15.3 mg/mg Normal [facility] Comment on above: Performed By: #### C BC #### [facility] [address] [place] [address] Dr. Jodi Roman XR CLAVICLE RTon 10-26-2021 [...] osteoarthrosis. 3. Osteopenia. Electronically authenticated by: JANE JOVAN Date: 2021-10-26 15:37 Normal [facility] XR ELBOW RT MIN 3 VIEWSon [...] Date: 2021-10-26 17:23 Normal [facility] XR HIP RT 2 3V W [...] CHARLES ALEJANDRA Date: 2021-10-26 15:40 Normal [facility] CARDIAC STRESS/REST INJE CTIONon 10-21-2021 [facility] CARDIAC STRESS/REST INJECTION Patient Name: CHICO BAKER STUDY: MYOCARDIAL PERFUSION STRESS TEST WITH LEXISCAN Performing facility: [facility], [address] [place] [address], [address], [address] Provider: Adilene Harrington MD, [facility] PCP: Dr. Jori Dunham Supervising provider: [facility] INDICATION: AAA Pre-operative risk assessment for AAA scheduled at [facility] on D. HISTORY: Gender: M; Age: 81 y/o ; Height: 0 cm; Weight: 0 kg. HTN; Carotid disease PAD AAA Denies smoking. COMPARISON: Previous nuclear testing completed [id number] at [place]. Previous echo testing completed on 2020 at [facility]. ACCESSION NUMBER(S): [id number]; [id number]; [id number] ORDERING CLINICIAN: JUDAH HARRINGTON TECHNIQUE: ONE DAY [...] Electronically signed by: ALL HUDSON MD Normal [facility] No Panel Informationon 10-21 Normal -[facility] [address] Work Phone: COVID-19 Positive/NegativeOr dered By: Raul Quan on 10-13-2021 SARS-CoV-2 (COVID-19) N gene JESSIE+probe Ql (Resp) Negative Negative [facility] Comment on above: Testing for SARS-CoV -2 by RT-PCR This test was developed and its performance characteristics determined by [employer] ([employer]) and validated at the [facility]. This test has not been FDA [...] 10-06-2021 Basophils (Bld) [#/Vol] 0.0 10*3/uL 0.0-0.2 [facility] Basophils/100 WBC Auto (Bld) Ordered By: Raul Quan on 10-06-2021 Basophils/100 WBC (Bld) 0.7 % . [facility] Blood hemoglobin measurement (mass/volume)Ordered By: Raul Quan on 10-06-2021 Hemoglobin (Bld) [Mass/Vol] 13.1 g/dL 13.0-17.0 [facility] Blood leukocytes automated c ount (number/volume)Ordered By: Raul Quan on 10-06-2021 WBC (Bld) [#/Vol] 5.2 10*3/uL 4.5-11.0 [facility] Creatinine and Glomerular fi ltration rate.predicted panel (S/P/Bld)Ordered By: Raul Quan on 10-06-2021 Creatinine [Mass/Vol] 0.98 mg/dL 0.64-1.[address] [facility] Eosinophils Auto (Bld) [#/Vo l]Ordered By: Raul Quan on 10-06-2021 Eosinophils (Bld) [#/Vol] 0.1 10*3/uL 0.0-0.45 [facility] Eosinophils/100 WBC Auto (Bl d)Ordered By: Raul Quan on 10-06-2021 Eosinophils/100 WBC (Bld) 1.3 % . [facility] Erythrocyte distribution wid th Auto (RBC) [Ratio]Ordered By: Raul Quan on 10-06-2021 Erythrocyte distribution width (RBC) [Ratio] 13.3 % 12.0-14.8 [facility] Estimated glomerular filtrat ion rate (GFR) non- AmericanOrdered By: Raul Quan on 10-06-2021 GFR/1.73 sq M.predicted among non-blacks MDRD (S/P/Bld) [Vol rate/Area] > 60 mL/Min [facility] Hematocrit Auto (Bld) [Volum e fraction]Ordered By: Raul Quan on 10-06-2021 Hematocrit (Bld) [Volume fraction] 40.4 % 38.8-50.0 [facility] Laboratory - Hematology and Cell countsOrdered By: Raul Quan on 10-06-2021 Nucleated RBC/100 WBC (Bld) [Ratio] 0.0 % 0-0.5 [facility] Lymphocytes Auto (Bld) [#/Vo l]Ordered By: Raul Quan on 10-06-2021 Lymphocytes (Bld) [#/Vol] 1.0 10*3/uL 1.00-4.8 [facility] Lymphocytes/100 WBC Auto (Bl d)Ordered By: Raul Quan on 10-06-2021 Lymphocytes/100 WBC (Bld) 18.4 % . [facility] MCH Auto (RBC) [Entitic mass ]Ordered By: Raul Quan on 10-06-2021 MCH (RBC) [Entitic mass] 30.9 pg 27.5-35.2 [facility] MCHC Auto (RBC) [Mass/Vol]Or dered By: Raul Quan on 10-06-2021 MCHC (RBC) [Mass/Vol] 32.5 g/dL 32.5-35.[address] [facility] MCV Auto (RBC) [Entitic vol] Ordered By: Raul Quan on 10-06-2021 MCV (RBC) [Entitic vol] 95.2 fL 83.5-101 [facility] Monocytes Auto (Bld) [#/Vol] Ordered By: Raul Quan on 10-06-2021 Monocytes (Bld) [#/Vol] 0.6 10*3/uL 0.0-0.8 [facility] Monocytes/100 WBC Auto (Bld) Ordered By: Raul Quan on 10-06-2021 Monocytes/100 WBC (Bld) 12.0 % . [facility] [facility] Neutrophils Auto (Bld) [#/Vo l]Ordered By: Raul Quan on 10-06-2021 Neutrophils (Bld) [#/Vol] 3.5 10*3/uL 1.8-7.7 [facility] Neutrophils/100 WBC Auto (Bl d)Ordered By: Raul Quan on 10-06-2021 Neutrophils/100 WBC (Bld) 67.6 % . [facility] No Panel InformationOrdered By: Raul Quan on 10-06-2021 Estimated GFR () > 60 mL/Min [facility] Comment on above: GFR estimated refere nce range: According to KDOQI guidelines, <60 ml/min/1.73m2 is sufficient to diagnose a patient with chronic kidney disease. Pharmacy Creatinine Clearance (Chem N/A [facility] Platelet mean volume Auto (B ld) [Entitic vol]Ordered By: Raul Quan on 10-06-2021 Platelet mean volume (Bld) [Entitic vol] 8.1 fL 6.6-10.1 [facility] Platelets Auto (Bld) [#/Vol] Ordered By: Raul Quan on 10-06-2021 Platelets (Bld) [#/Vol] 185 10*3/uL 150-450 [facility] RBC Auto (Bld) [#/Vol]Ordere d By: Raul Quan on 10-06-2021 RBC (Bld) [#/Vol] 4.25 10*6/uL 3.90-5.60 [facility] Serum or plasma calcium richy urement (mass/volume)Ordered By: Raul Quan on 10-06-2021 Calcium [Mass/Vol] 9.0 mg/dL 8.2-10.2 [facility] Serum or plasma chloride young surement (moles/volume)Ordered By: Raul Quan on 10-06-2021 Chloride [Moles/Vol] 101 mmol/L 95-114 [facility] Serum or plasma glucose richy urement (mass/volume)Ordered By: Raul Quan on 10-06-2021 Glucose [Mass/Vol] 187 mg/dL 70-100 [facility] Comment on above: ADA recommended [...] on 10-06-2021 Sodium [Moles/Vol] 135 mmol/L 136-146 [facility] Serum or plasma total carbon dioxide measurement (moles/volume)Ordered By: Raul Quan on 10-06-2021 CO2 [Moles/Vol] 25.1 mmol/L 22.0-30.0 [facility] Serum or plasma urea nitroge n measurement (mass/volume)Ordered By: Raul Quan on 10-06-2021 Urea nitrogen [Mass/Vol] 13 mg/dL 9-23 [facility] CBC AUTO DIFFon 09-22-2021 BASO # 0.0 103/ul Normal 0.0-0.1 [facility] Comment on above: Performed By: #### C BC #### [facility] [address] [address] [address] Jodi Roman Basophils/100 WBC (Bld) 0.3 % Normal 0.2-2.0 [facility] Comment on above: Performed By: #### C BC #### [facility] [address] [place] [address] Dr. Jodi Roman EO # 0.1 103/ul Normal 0.0-0.7 [facility] Comment on above: Performed By: #### C BC #### [facility] [address] [place] [address] Dr. Jodi Roman Eosinophils/100 WBC (Bld) 0.8 % Critically low 0.9-7.0 [facility] Comment on above: Performed By: #### C BC #### [facility] [address] [place] [address] Dr. Jodi Roman Erythrocyte distribution width (RBC) [Ratio] 12.5 % Normal 11.0-15.0 [facility] Comment on above: Performed By: #### C BC #### [facility] [address] [place] [address] Dr. oJdi Roman Hematocrit (Bld) [Volume fraction] 43.6 % Normal 42.0-54.0 [facility] Comment on above: Performed By: #### C BC #### [facility] [address] [place] [address] Dr. Jodi Roman Hemoglobin (Bld) [Mass/Vol] 14.1 g/dL Normal 14.0-18.0 [facility] Comment on above: Performed By: #### C BC #### [facility] [address] [place] [address] Dr. Jodi Roman IG # 0.03 10e3/ul Normal 0.00-0.03 [facility] Comment on above: Performed By: #### C BC #### [facility] [address] [place] [address] Dr. Jodi Roman IG % 0.3 % Normal 0.0-0.5 [facility] Comment on above: Performed By: #### C BC #### [facility] [address] [place] [address] Dr. Jodi Roman LYMPH # 1.5 103/ul Normal 1.2-3.8 [facility] Comment on above: Performed By: #### C BC #### [facility] [address] [place] [address] Dr. Jodi Roman Lymphocytes/100 WBC (Bld) 17.2 % Critically low 20.5-60.0 [facility] Comment on above: Performed By: #### C BC #### [facility] [address] [place] [address] Dr. Jodi Roman MANUAL DIFF REQ NO Normal [facility] Comment on above: Performed By: #### C BC #### [facility] [address] [place] [address] Dr. Jodi Roman MCH (RBC) [Entitic mass] 31.1 pg Normal 25.9-34.0 [facility] Comment on above: Performed By: #### C BC #### [facility] [address] [place] [address] Dr. Jodi Roman MCHC (RBC) [Mass/Vol] 32.3 g/dL Normal 29.9-35.2 [facility] Comment on above: Performed By: #### C BC #### [facility] [address] [place] [address] Dr. Jodi Roman MCV (RBC) [Entitic vol] 96.0 fL Critically high 80.0-94.0 [facility] Comment on above: Performed By: #### C BC #### [facility] [address] [place] [address] Dr. Jodi Roman MONO # 1.0 103/ul Critically high 0.3-0.8 [facility] Comment on above: Performed By: #### C BC #### [facility] [address] [place] [address] Dr. Jodi Roman Monocytes/100 WBC (Bld) 10.8 % Normal 1.7-12.0 [facility] Comment on above: Performed By: #### C BC #### [facility] [address] [place] [address] Dr. Jodi Roman NEUT # 6.2 103/ul Normal 1.4-6.5 [facility] Comment on above: Performed By: #### C BC #### [facility] [address] [address] [address] Jodi Roman Neutrophils/100 WBC (Bld) 70.6 % Normal 43.0-75.0 [facility] Comment on above: Performed By: #### C BC #### [facility] [address] [address] [address] Jodi Roman Platelet mean volume (Bld) [Entitic vol] 9.6 fL Normal 9.5-13.5 [facility] Comment on above: Performed By: #### C BC #### [facility] [address] [place] [address] Dr. Jodi Roman PLT 206 103/ul Normal 150-450 [facility] Comment on above: Performed By: #### C BC #### [facility] [address] [place] [address] Dr. Jodi Roman RBC 4.54 106/ul Critically low 4.70-6.10 [facility] Comment on above: Performed By: #### C BC #### [facility] [address] [place] [address] Dr. Jodi Roman WBC 8.8 103/ul Normal 4.0-11.0 [facility] Comment on above: Performed By: #### C BC #### [facility] [address] [place] [address] Dr. Jodi Roman PROF CHEM 8 (BAS METB)on Anion gap [Moles/Vol] 9.5 mmol/L Normal [facility] Comment on above: Performed By: #### B MP #### [facility] [address] [place] [address] Dr. Jodi Roman Calcium [Mass/Vol] 9.4 mg/dL Normal 8.5-10.1 [facility] Comment on above: Performed By: #### B MP #### [facility] [address] [place] [address] Dr. Jodi Roman Chloride [Moles/Vol] 100 mmol/L Normal 98-107 [facility] Comment on above: Performed By: #### B MP #### [facility] [address] [address] [address] Jodi Roman CO2 [Moles/Vol] 33.2 mmol/L Critically high 21.0-32.0 [facility] Comment on above: Performed By: #### B MP #### [facility] [address] [address] [address] Jodi Roman Creatinine [Mass/Vol] 0.99 mg/dL Normal 0.70-1.30 [facility] Comment on above: Performed By: #### B MP #### [facility] [address] [address] [address] Jodi Roman EGFR-AF UKRAINIAN >60 Normal >=60 [facility] Comment on above: Performed By: #### B MP #### [facility] [address] [address] [address] Jodi Roman EGFR-NON AF UKRAINIAN >60 Normal >=60 [facility] Comment on above: Performed By: #### B MP #### [facility] [address] [address] [address] Jodi Roman Glucose [Mass/Vol] 109 mg/dL Critically high 74-106 [facility] Comment on above: Performed By: #### B MP #### [facility] [address] [address] [address] Jodi Roman Potassium [Moles/Vol] 4.7 mmol/L Normal 3.5-5.1 [facility] Comment on above: Performed By: #### B MP #### [facility] [address] [address] [address] Jodi Roman Sodium [Moles/Vol] 138 mmol/L Normal 136-145 [facility] Comment on above: Performed By: #### B MP #### [facility] [address] [address] [address] Jodi Roman Urea nitrogen [Mass/Vol] 17.0 mg/dL Normal 7.0-18.0 [facility] Comment on above: Performed By: #### B MP #### [facility] [address] [address] [address] Jodi Roman Urea nitrogen/Creatinine [Mass ratio] 17.2 mg/mg Normal [facility] Comment on above: Performed By: #### B MP #### [facility] [address] [place] [address] Dr. Jodi Roman Creatinine (Bld) [Mass/Vol]O rdered By: Tamar Perea on 09-18-2021 Creatinine [Mass/Vol] 0.8 mg/dL 0.6-1.[address] [facility] Comment on above: ER/ESD physician is notified/shown all ISTAT results. Critical values may be confirmed by laboratory testing if deemed necessary by ER attending doctor. No Panel InformationOrdered By: Tamar Perea on 09-18-2021 POC Estimated GFR > 60 [facility] Comment on above: GFR estimated refere nce range: According to KDOQI guidelines, <60 ml/min/1.73m2 is sufficient to diagnose a patient with chronic kidney disease. POC Estimated GFR Non- Amer > 60 [facility] CBC AUTO DIFFon 08-12-2021 BASO # 0.0 103/ul Normal 0.0-0.1 [facility] Comment on above: Performed By: #### C BC #### [facility] [address] [place] [address] Dr. Jodi Roman Basophils/100 WBC (Bld) 0.3 % Normal 0.2-2.0 [facility] Comment on above: Performed By: #### C BC #### [facility] [address] [address] [address] Jodi Roman EO # 0.1 103/ul Normal 0.0-0.7 [facility] Comment on above: Performed By: #### C BC #### [facility] [address] [address] [address] Jodi Roman Eosinophils/100 WBC (Bld) 1.8 % Normal 0.9-7.0 [facility] Comment on above: Performed By: #### C BC #### [facility] [address] [address] [address] Jodi Roman Erythrocyte distribution width (RBC) [Ratio] 12.6 % Normal 11.0-15.0 [facility] Comment on above: Performed By: #### C BC #### [facility] [address] [place] [address] Dr. Jodi Roman Hematocrit (Bld) [Volume fraction] 40.9 % Critically low 42.0-54.0 [facility] Comment on above: Performed By: #### C BC #### [facility] [address] [place] [address] Dr. Jodi Roman Hemoglobin (Bld) [Mass/Vol] 13.4 g/dL Critically low 14.0-18.0 [facility] Comment on above: Performed By: #### C BC #### [facility] [address] [place] [address] Dr. Jodi Roman IG # 0.03 10e3/ul Normal 0.00-0.03 [facility] Comment on above: Performed By: #### C BC #### [facility] [address] [place] [address] Dr. Jodi Roman IG % 0.4 % Normal 0.0-0.5 [facility] Comment on above: Performed By: #### C BC #### [facility] [address] [place] [address] Dr. Jodi Roman LYMPH # 1.4 103/ul Normal 1.2-3.8 [facility] Comment on above: Performed By: #### C BC #### [facility] [address] [place] [address] Dr. Jodi Roman Lymphocytes/100 WBC (Bld) 18.6 % Critically low 20.5-60.0 [facility] Comment on above: Performed By: #### C BC #### [facility] [address] [place] [address] Dr. Jodi Roman MCH (RBC) [Entitic mass] 31.5 pg Normal 25.9-34.0 [facility] Comment on above: Performed By: #### C BC #### [facility] [address] [place] [address] Dr. Jodi Roman MCHC (RBC) [Mass/Vol] 32.8 g/dL Normal 29.9-35.2 [facility] Comment on above: Performed By: #### C BC #### [facility] [address] [place] [address] Dr. Jodi Roman MCV (RBC) [Entitic vol] 96.0 fL Critically high 80.0-94.0 [facility] Comment on above: Performed By: #### C BC #### [facility] [address] [place] [address] Dr. Jodi Roman MONO # 0.7 103/ul Normal 0.3-0.8 [facility] Comment on above: Performed By: #### C BC #### [facility] [address] [place] [address] Dr. Jodi Roman Monocytes/100 WBC (Bld) 9.7 % Normal 1.7-12.0 [facility] Comment on above: Performed By: #### C BC #### [facility] [address] [place] [address] Dr. Jodi Roman NEUT # 5.1 103/ul Normal 1.4-6.5 [facility] Comment on above: Performed By: #### C BC #### [facility] [address] [place] [address] Dr. Jodi Roman Neutrophils/100 WBC (Bld) 69.2 % Normal 43.0-75.0 [facility] Comment on above: Performed By: #### C BC #### [facility] [address] [place] [address] Dr. Jodi Roman Platelet mean volume (Bld) [Entitic vol] 9.8 fL Normal 9.5-13.5 [facility] Comment on above: Performed By: #### C BC #### [facility] [address] [place] [address] Dr. Jodi Roman PLT 195 103/ul Normal 150-450 [facility] Comment on above: Performed By: #### C BC #### [facility] [address] [place] [address] Dr. Jodi Roman RBC 4.26 106/ul Critically low 4.70-6.10 [facility] Comment on above: Performed By: #### C BC #### [facility] [address] [place] [address] Dr. Jodi Roman WBC 7.4 103/ul Normal 4.0-11.0 [facility] Comment on above: Performed By: #### C BC #### [facility] [address] [place] [address] Dr. Jodi Roman ASHLEY - TSHon 08-12-2021 TSH 1.879 uIU/mL Normal 0.358-3.74 0 [facility] Comment on above: Performed By: #### D LULU DATBMP #### [facility] [address] [place] [address] Dr. Jodi Roman TSH RANGE SEE BELOW Normal [facility] Comment on above: Result Comment: <0.3 4 UIU/ml HYPERTHYROID 0.34-5.60 UIU/ml EUTHYROID >5.60 UIU/ml HYPOTHYROID Performed By: #### D LULU DATBMP #### [facility] [address] [place] [address] Dr. Jodi Roman ASHLEY- BMP WITH LIPIDon 2021 Anion gap [Moles/Vol] 11.4 mmol/L Normal [facility] Comment on above: Performed By: #### D LULU DATBMP #### [facility] [address] [place] [address] Dr. Jodi Roman Calcium [Mass/Vol] 8.7 mg/dL Normal 8.5-10.1 [facility] Comment on above: Performed By: #### D LULU DATBMP #### [facility] [address] [place] [address] Dr. Jodi Roman Chloride [Moles/Vol] 105 mmol/L Normal 98-107 [facility] Comment on above: Performed By: #### D ATTKENDELL DATBMP #### [facility] [address] [place] [address] Dr. Jodi Roman Cholesterol [Mass/Vol] 113 mg/dL Normal <=200 [facility] Comment on above: Performed By: #### D ATTSH, DATBMP #### [facility] [address] [place] [address] Dr. Jodi Roman Cholesterol in HDL [Mass/Vol] 47 mg/dL Normal 40-60 [facility] Comment on above: Performed By: #### D ATTSH, DATBMP #### [facility] [address] [place] [address] Dr. Jodi Roman Cholesterol in LDL [Mass/Vol] 58.0 mg/dL Normal [facility] Comment on above: Performed By: #### D ATTSH, DATBMP #### [facility] [address] [place] [address] Dr. Jodi Roman CO2 [Moles/Vol] 29.0 mmol/L Normal 21.0-32.0 [facility] Comment on above: Performed By: #### D ATTSH, DATBMP #### [facility] [address] [place] [address] Dr. Jodi Roman Creatinine [Mass/Vol] 0.99 mg/dL Normal 0.70-1.30 [facility] Comment on above: Performed By: #### D ATTSH, DATBMP #### [facility] [address] [place] [address] Dr. Jodi Roman EGFR-AF UKRAINIAN >60 Normal >=60 [facility] Comment on above: Performed By: #### D ATTSH, DATBMP #### [facility] [address] [place] [address] Dr. Jodi Roman EGFR-NON AF UKRAINIAN >60 Normal >=60 [facility] Comment on above: Performed By: #### D ATTSH, DATBMP #### [facility] [address] [place] [address] Dr. Jodi Roman Glucose [Mass/Vol] 116 mg/dL Critically high 74-106 T [facility] Comment on above: Performed By: #### D ATTSH, DATBMP #### [facility] [address] [place] [address] Dr. Jodi Roman HDL NORMAL > or = 60 mg/dl - LO W CARDIOVASCULAR RISK <40 mg/dl - HIGH CARDIOVASCULAR RISK Normal [facility] Comment on above: Performed By: #### D ATTKENDELL, DATBMP #### [facility] [address] [address] [address] Jodi Roman LDL CALC NORMAL SEE BELOW Normal [facility] Comment on above: Result Comment: <100 mg/dl OPTIMAL 100 - 129 mg/dl NEAR OR ABOVE OPTIMAL 130 - 159 mg/dl BORDERLINE HIGH 160 - 189 mg/dl HIGH >190 mg/dl VERY HIGH Performed By: #### D ATTSH, DATBMP #### [facility] [address] [address] [address] Jodi Roman Potassium [Moles/Vol] 4.4 mmol/L Normal 3.5-5.1 [facility] Comment on above: Performed By: #### D ATTKENDELL, DATBMP #### [facility] [address] [address] [address] Jodi Roman Sodium [Moles/Vol] 141 mmol/L Normal 136-145 [facility] Comment on above: Performed By: #### D ATTKENDELL, DATBMP #### [facility] [address] [address] [address] Jodi Roman Triglyceride [Mass/Vol] 40 mg/dL Normal <=150 [facility] Comment on above: Performed By: #### D ATTSH, DATBMP #### [facility] [address] [address] [address] Jodi Roman Urea nitrogen [Mass/Vol] 16.0 mg/dL Normal 7.0-18.0 [facility] Comment on above: Performed By: #### D ATTSH, DATBMP #### [facility] [address] [address] [address] Jodi Roman Urea nitrogen/Creatinine [Mass ratio] 16.2 mg/mg Normal [facility] Comment on above: Performed By: #### D ATTSH, DATBMP #### [facility] [address] [address] [address] Jodi Roman VLDL CALC 8.0 mg/dL Normal [facility] Comment on above: Performed By: #### D ATTSH, DATBMP #### [facility] [address] [address] [address] Jodi Roman GLYCOHEMOGLOBIN A1Con 2021 ADA RECOMMENDATION SEE BELOW Normal [facility] Comment on above: Result Comment: ADA RECOMMENDED LIMIT 4.0 - 6.0 ADA THERAPEUTIC TARGET < 7.0 ACTION SUGGESTED > 7.0 Performed By: #### D ATA1C #### [facility] [address] [address] [address] Jodi Roman Glucose [Mass/Vol] 131 mg/dL Normal [facility] Comment on above: Performed By: #### D ATA1C #### [facility] [address] [address] [address] Jodi Roman HbA1c (Bld) [Mass fraction] 6.2 % Normal 4.5-6.2 [facility] Comment on above: Performed By: #### D ATA1C #### [facility] [address] [address] [address] Jodi Roman CNOVon 12-11-2020 CNOV Office Visit ([facility] ) -- CHICO BAKER ([id number]) 1940 M Date Time Provider Department 12/11/20 10:45 AM POWER CATHERINE During your visit today, we recorded the following information about you: Pulse Blood pressure Weight Height 60/minute 122/78 67.6 kg 1.702 m Power Catherine MD 12/11/2020 11:17 AM [facility] OUTPATIENT VISIT DATE December 11, 2020 OUTPATIENT VISIT TYPE EST PRIMARY CARE PHYSICIAN: Shailesh Dunham (Jere) [address] [place] [address] REFERRING PHYSICIAN Power Catherine [address] [facility] [id number] CHIEF COMPLAINT: Patient presents with: Established Patient [...] Power Catherine MD Referring Provider: POWER CATHERINE [[id number]] Allergies As of Date: 12/11/2020 Noted Allergy Reaction SHALINI INHIBITORS 05/09/2015 18 - Unknown GADOLINIUM-CONTAINING CONTRAST ME*05/09/2015 16 - Unknown TETANUS VACCINES AND TOXOID 05/16/2015 16 - Unknown Date Reviewed: 12/11/2020 Reviewed by: Harika Menjivar - Fully Assessed Reason for Visit: Established Patient [175] Follow Up [171] Primary Visit Diagnosis: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 - nitroglycerin sublingual (NITROQUICK) 0.3 mg SL tablet (more content not included)... [facility] SAMUELCHICO ([id number]) 1940 M Date Time Provider Department 10/30/20 [...] [I71.4] Order(s):US ABD AORTA [facility] [[id number]] Order #: [id number] FUTURE Prescriptions as of 11/04/2020 - aspirin, [...] Time Vital Sign Value Performing Clinician Facility 09-13-2024 11:46-0400 Body height 167.64 cm Shailesh Ball DO Work Phone: [facility] 09-13-2024 11:46-0400 Body mass index (BMI) [Ratio] 20.2 kg/m2 Shailesh Ball DO Work Phone: [facility] 09-13-2024 11:46-0400 Body weight 56.81 kg Shailesh Ball DO Work Phone: [facility] 09-13-2024 11:46-0400 Diastolic blood pressure 65 mm[Hg] Shailesh Ball DO Work Phone: [facility] 09-13-2024 11:46-0400 Heart rate 61 /min Shailesh Ball DO Work Phone: [facility] 09-13-2024 11:46-0400 Respiratory rate 12 /min Shailesh Ball DO Work Phone: [facility] 09-13-2024 11:46-0400 Systolic blood pressure 147 mm[Hg] Shailesh Ball DO Work Phone: [facility] 08-14-2024 11:41-0400 Body height 167.64 cm [facility] 08-14-2024 11:41-0400 Body mass index (BMI) [Ratio] 20.6 kg/m2 [facility] 08-14-2024 11:41-0400 Body weight 58.05 kg [facility] 08-14-2024 11:41-0400 Diastolic blood pressure 67 mm[Hg] [facility] 08-14-2024 11:41-0400 Heart rate 83 /min [facility] 08-14-2024 11:41-0400 Respiratory rate 12 /min [facility] 08-14-2024 11:41-0400 SaO2% (BldA) [Mass fraction] 94 % [facility] 08-14-2024 11:41-0400 Systolic blood pressure 124 mm[Hg] [facility] 07-12-2024 15:20-0400 Body height 167.64 cm [facility] 07-12-2024 15:20-0400 Body mass index (BMI) [Ratio] 21.3 kg/m2 [facility] 07-12-2024 15:20-0400 Body weight 60.04 kg [facility] 07-12-2024 15:20-0400 Diastolic blood pressure 86 mm[Hg] [facility] 07-12-2024 15:20-0400 Diastolic blood pressure 89 mm[Hg] [facility] 07-12-2024 15:20-0400 Heart rate 66 /min [facility] 07-12-2024 15:20-0400 Respiratory rate 12 /min [facility] 07-12-2024 15:20-0400 Systolic blood pressure 164 mm[Hg] [facility] 07-12-2024 15:20-0400 Systolic blood pressure 139 mm[Hg] [facility] 01-11-2024 11:02-0500 Body height 167.64 cm DO Shailesh Ball Work Phone: [facility] 01-11-2024 11:02-0500 Body mass index (BMI) [Ratio] 21.7 kg/m2 DO Shailesh Ball Work Phone: [facility] 01-11-2024 11:02-0500 Body temperature 97.8 [degF] DO Shailesh Ball Work Phone: [facility] 01-11-2024 11:02-0500 Body weight 61.23 kg DO Shailesh Ball Work Phone: [facility] 01-11-2024 11:02-0500 Diastolic blood pressure 60 mm[Hg] DO Shailesh Ball Work Phone: [facility] 01-11-2024 11:02-0500 Heart rate 60 /min DO Shailesh Ball Work Phone: [facility] 01-11-2024 11:02-0500 SaO2% (BldA) [Mass fraction] 96 % DO Shailesh Ball Work Phone: [facility] 01-11-2024 11:02-0500 Systolic blood pressure 122 mm[Hg] DO Shailesh Ball Work Phone: [facility] 12-22-2023 13:06-0400 Body height 170.18 cm DO Shailesh Ball Work Phone: [facility] 12-22-2023 13:06-0400 Body mass index (BMI) [Ratio] 21.2 kg/m2 DO Shailesh Ball Work Phone: [facility] 12-22-2023 13:06-0400 Body weight 61.34 kg DO Shailesh Ball Work Phone: [facility] 12-22-2023 13:06-0400 Diastolic blood pressure 80 mm[Hg] DO Shailesh Ball Work Phone: [facility] 12-22-2023 13:06-0400 Diastolic blood pressure 89 mm[Hg] DO Shailesh Ball Work Phone: [facility] 12-22-2023 13:06-0400 Heart rate 62 /min DO Shailesh Ball Work Phone: [facility] 12-22-2023 13:06-0400 Respiratory rate 12 /min DO Shailesh Ball Work Phone: [facility] 12-22-2023 13:06-0400 Systolic blood pressure 173 mm[Hg] DO Shailesh Ball Work Phone: [facility] 12-22-2023 13:06-0400 Systolic blood pressure 139 mm[Hg] DO Shailesh Ball Work Phone: [facility] 11-23-2023 10:05-0400 Body height 170.18 cm DO Shailesh Ball Work Phone: [facility] 11-23-2023 10:05-0400 Body mass index (BMI) [Ratio] 20.9 kg/m2 DO Shailesh Ball Work Phone: [facility] 11-23-2023 10:05-0400 Body weight 60.78 kg DO Shailesh Ball Work Phone: [facility] 11-23-2023 10:05-0400 Diastolic blood pressure 61 mm[Hg] DO Shailesh Ball Work Phone: [facility] 11-23-2023 10:05-0400 Heart rate 67 /min DO Shailesh Ball Work Phone: [facility] 11-23-2023 10:05-0400 Respiratory rate 12 /min DO Shailesh Ball Work Phone: [facility] 11-23-2023 10:05-0400 Systolic blood pressure 98 mm[Hg] DO Shailesh Ball Work Phone: [facility] 11-15-2023 10:21-0400 Body temperature 96.5 [degF] DO Shailesh Ball Work Phone: [facility] 11-15-2023 10:21-0400 Diastolic blood pressure 60 mm[Hg] DO Shailesh Ball Work Phone: [facility] 11-15-2023 10:21-0400 Heart rate 56 /min DO Shailesh Ball Work Phone: [facility] 11-15-2023 10:21-0400 SaO2% (BldA) [Mass fraction] 97 % DO Shailesh Ball Work Phone: [facility] 11-15-2023 10:21-0400 Systolic blood pressure 138 mm[Hg] DO Shailesh Ball Work Phone: [facility] 10-21-2023 09:08-0400 Body height 170.18 cm DO Shailesh Ball Work Phone: [facility] 10-21-2023 09:08-0400 Body mass index (BMI) [Ratio] 20.9 kg/m2 DO Shailesh Ball Work Phone: [facility] 10-21-2023 09:08-0400 Body weight 60.55 kg DO Shailesh Ball Work Phone: [facility] 10-21-2023 09:08-0400 Diastolic blood pressure 58 mm[Hg] DO Shailesh Ball Work Phone: [facility] 10-21-2023 09:08-0400 Heart rate 65 /min DO Shailesh Ball Work Phone: [facility] 10-21-2023 09:08-0400 Respiratory rate 12 /min DO Shailesh Ball Work Phone: [facility] 10-21-2023 09:08-0400 Systolic blood pressure 102 mm[Hg] DO Shailesh Ball Work Phone: [facility] 09-03-2023 08:49-0400 Body height 170.18 cm DO Shailesh Ball Work Phone: [facility] 09-03-2023 08:49-0400 Body mass index (BMI) [Ratio] 21.9 kg/m2 DO Shailesh Ball Work Phone: [facility] 09-03-2023 08:49-0400 Body weight 63.5 kg DO Shailesh Ball Work Phone: [facility] 09-03-2023 08:49-0400 Diastolic blood pressure 58 mm[Hg] DO Shailesh Ball Work Phone: [facility] 09-03-2023 08:49-0400 Heart rate 63 /min DO Shailesh Ball Work Phone: [facility] 09-03-2023 08:49-0400 Respiratory rate 18 /min DO Shailesh Ball Work Phone: [facility] 09-03-2023 08:49-0400 SaO2% (BldA) [Mass fraction] 97 % DO Shailesh Ball Work Phone: [facility] 09-03-2023 08:49-0400 Systolic blood pressure 110 mm[Hg] DO Shailesh Ball Work Phone: [facility] 08-27-2023 08:33-0400 Body height 170.18 cm DO Shailesh Ball Work Phone: [facility] 08-27-2023 08:33-0400 Body mass index (BMI) [Ratio] 21.7 kg/m2 DO Shailesh Ball Work Phone: [facility] 08-27-2023 08:33-0400 Body weight 62.76 kg DO Shailesh Ball Work Phone: [facility] 08-27-2023 08:33-0400 Diastolic blood pressure 65 mm[Hg] DO Shailesh Ball Work Phone: [facility] 08-27-2023 08:33-0400 Heart rate 64 /min DO Shailesh Ball Work Phone: [facility] 08-27-2023 08:33-0400 Respiratory rate 12 /min DO Shailesh Ball Work Phone: [facility] 08-27-2023 08:33-0400 Systolic blood pressure 132 mm[Hg] DO Shailesh Ball Work Phone: [facility] 08-19-2023 11:18-0400 Body height 170.18 cm DO Shailesh Ball Work Phone: [facility] 08-19-2023 11:18-0400 Body mass index (BMI) [Ratio] 21.9 kg/m2 DO Shailesh Ball Work Phone: [facility] 08-19-2023 11:18-0400 Body weight 63.5 kg DO Shailesh Ball Work Phone: [facility] 08-19-2023 11:18-0400 Diastolic blood pressure 56 mm[Hg] DO Shailesh Ball Work Phone: [facility] 08-19-2023 11:18-0400 Heart rate 60 /min DO Shailesh Ball Work Phone: [facility] 08-19-2023 11:18-0400 Respiratory rate 18 /min DO Shailesh Ball Work Phone: [facility] 08-19-2023 11:18-0400 SaO2% (BldA) [Mass fraction] 98 % DO Shailesh Ball Work Phone: [facility] 08-19-2023 11:18-0400 Systolic blood pressure 102 mm[Hg] DO Shailesh Ball Work Phone: [facility] 07-05-2023 10:23-0400 Body height 170.18 cm DO Shailesh Ball Work Phone: [facility] 07-05-2023 10:040 Body mass index (BMI) [Ratio] 21.4 kg/m2 DO Shailesh Ball Work Phone: [facility] 07-05-2023 10:-0400 Body temperature 97 [degF] DO Shailesh Ball Work Phone: [facility] 07-05-2023 10:-040 Body weight 62.14 kg DO Shailesh Ball Work Phone: [facility] 07-05-2023 10:-040 Diastolic blood pressure 48 mm[Hg] DO Shailesh Ball Work Phone: [facility] 07-05-2023 10:-040 Heart rate 60 /min DO Shailesh Ball Work Phone: [facility] 07-05-2023 10:-0400 SaO2% (BldA) [Mass fraction] 97 % DO Shailesh Ball Work Phone: [facility] 07-05-2023 10:-040 Systolic blood pressure 96 mm[Hg] DO Shailesh Ball Work Phone: [facility] 06-22-2023 10:040 Body height 170.18 cm DO Shailesh Ball Work Phone: [facility] 06-22-2023 10:0400 Body mass index (BMI) [Ratio] 21.5 kg/m2 DO Shailesh Ball Work Phone: [facility] 06-22-2023 10:040 Body weight 62.36 kg DO Shailesh Ball Work Phone: [facility] 06-22-2023 10:-040 Diastolic blood pressure 69 mm[Hg] DO Shailesh Ball Work Phone: [facility] 06-22-2023 10:-040 Heart rate 64 /min DO Shailesh Ball Work Phone: [facility] 06-22-2023 10:01-0400 Respiratory rate 12 /min DO Shailesh Ball Work Phone: [facility] 06-22-2023 10:01-0400 Systolic blood pressure 95 mm[Hg] DO Shailesh Ball Work Phone: [facility] 05-04-2023 11:14-0500 Blood Pressure Location Ivelisse Lue [facility] 05-04-2023 11:14-0500 Diastolic blood pressure 46 mm[Hg] Ivelisse Lue [facility] 05-04-2023 11:14-0500 Heart rate 63 /min Ivelisse Lue [facility] 05-04-2023 11:14-0500 Systolic blood pressure 116 mm[Hg] Ivelisse Lue [facility] 04-14-2023 10:15-0500 Body height 170.18 cm Shailesh Ball Other [facility] Other 04-14-2023 10:15-0500 Body mass index (BMI) [Ratio] 21.64 kg/m2 Shailesh Ball Other [facility] Other 04-14-2023 10:15-0500 Body weight 62.69 kg Shailesh Ball Other [facility] Other 04-14-2023 10:15-0500 Diastolic blood pressure 58 mm[Hg] Shailesh Ball Other [facility] Other 04-14-2023 10:15-0500 Respiratory rate 12 /min Shailesh Ball Other [facility] Other 04-14-2023 10:15-0500 Systolic blood pressure 118 mm[Hg] Shailesh Ball Other [facility] Other 03-29-2023 10:00-0500 Body height 170.18 cm Shailesh Ball Other [facility] 03-29-2023 10:00-0500 Body mass index (BMI) [Ratio] 21.8 kg/m2 Shailesh Ball Other [facility] Other 03-29-2023 10:00-0500 Body weight 63.14 kg Shailesh Ball Other [facility] 03-29-2023 10:00-0500 Diastolic blood pressure 74 mm[Hg] Shailesh Ball Other [facility] 03-29-2023 10:00-0500 Respiratory rate 12 /min Shailesh Ball Other [facility] Other 03-29-2023 10:00-0500 Systolic blood pressure 132 mm[Hg] Shailesh Ball Other [facility] 01-13-2023 08:49-0500 Blood Pressure Location Ivelisse Lue [facility] 01-13-2023 08:49-0500 Diastolic blood pressure 74 mm[Hg] Ivelisse Lue [facility] 01-13-2023 08:49-0500 Heart rate 68 /min Ivelisse Lue [facility] 01-13-2023 08:49-0500 Respiratory rate 16 /min Ivelisse Lue [facility] 01-13-2023 08:49-0500 Systolic blood pressure 156 mm[Hg] Ivelisse Lue [facility] 11-10-2022 10:30-0400 Body height 170.18 cm Raul Quan Other [facility] Other 11-10-2022 10:30-0400 Body mass index (BMI) [Ratio] 20.99 kg/m2 Raul Melindarer Other [facility] Other 11-10-2022 10:30-0400 Body temperature 97.8 [degF] Raul Avelina Other [facility] Other 11-10-2022 10:30-0400 Body weight 60.78 kg Raul Stanislawchantellrejakub Other [facility] Other 11-10-2022 10:30-0400 Diastolic blood pressure 64 mm[Hg] Raul Quan Other [facility] Other 11-10-2022 10:30-0400 SaO2% (BldA) [Mass fraction] 98 % Raul Quan Other [facility] Other 11-10-2022 10:30-0400 Systolic blood pressure 110 mm[Hg] Raul Quan Other [facility] Other 10-07-2022 08:49-0400 Blood Pressure Location Ivelisse Lue [facility] 10-07-2022 08:49-0400 Diastolic blood pressure 74 mm[Hg] Ivelisse Lue [facility] 10-07-2022 08:49-0400 Heart rate 75 /min Ivelisse Lue [facility] 10-07-2022 08:49-0400 Systolic blood pressure 139 mm[Hg] Ivelisse Lue [facility] 08-04-2022 11:15-0400 Body height 170.18 cm Raul Quan Other [facility] Other 08-04-2022 11:15-0400 Body mass index (BMI) [Ratio] 21.77 kg/m2 Raul Quan Other [facility] Other 08-04-2022 11:15-0400 Body temperature 97.8 [degF] Raul Quan Other [facility] Other 08-04-2022 11:15-0400 Body weight 63.05 kg Raul Quan Other [facility] Other 08-04-2022 11:15-0400 Diastolic blood pressure 68 mm[Hg] Raul Quan Other [facility] Other 08-04-2022 11:15-0400 SaO2% (BldA) [Mass fraction] 97 % Raul Quan Other [facility] Other 08-04-2022 11:15-0400 Systolic blood pressure 108 mm[Hg] Raul Lawrencerejakub Other [facility] Other 07-09-2022 08:00-0400 Body temperature 98.6 [degF] DO Shailesh Ball Work Phone: [facility] 07-09-2022 08:00-0400 Diastolic blood pressure 72 mm[Hg] DO Shailesh Ball Work Phone: [facility] 07-09-2022 08:00-0400 Heart rate 69 /min DO Shailesh Ball Work Phone: [facility] 07-09-2022 08:00-0400 Respiratory rate 16 /min DO Shailesh Ball Work Phone: [facility] 07-09-2022 08:00-0400 SaO2% (BldA) [Mass fraction] 97 % DO Shailesh Ball Work Phone: [facility] 07-09-2022 08:00-0400 Systolic blood pressure 154 mm[Hg] DO Shailesh Ball Work Phone: [facility] 07-09-2022 06:00-0400 Body weight 65.8 kg DO Shailesh Ball Work Phone: [facility] 07-08-2022 10:52-0400 Inhaled oxygen flow rate 8 L/min DO Shailesh Ball Work Phone: [facility] 07-08-2022 08:34-0400 Body height 167.64 cm DO Shailesh Ball Work Phone: [facility] 07-08-2022 08:34-0400 Body mass index (BMI) [Ratio] 22.7 kg/m2 DO Shailesh Ball Work Phone: [facility] 06-24-2022 09:27-0400 Blood Pressure Location Ivelisse Lue [facility] 06-24-2022 09:27-0400 Diastolic blood pressure 75 mm[Hg] Ivelisse Lue [facility] 06-24-2022 09:27-0400 Heart rate 66 /min Ivelisse Lue [facility] 06-24-2022 09:27-0400 Respiratory rate 16 /min Ivelisse Lue [facility] 06-24-2022 09:27-0400 Systolic blood pressure 120 mm[Hg] Ivelisse Hassan [facility] 05-21-2022 09:30-0400 Body height 170.18 cm Shailesh Ball Other [facility] Other 05-21-2022 09:30-0400 Body mass index (BMI) [Ratio] 21.8 kg/m2 Shailesh Ball Other [facility] Other 05-21-2022 09:30-0400 Body weight 63.14 kg Shailesh Ball Other [facility] Other 05-21-2022 09:30-0400 Diastolic blood pressure 73 mm[Hg] Shailesh Ball Other [facility] Other 05-21-2022 09:30-0400 Respiratory rate 12 /min Shailesh Ball Other [facility] Other 05-21-2022 09:30-0400 Systolic blood pressure 121 mm[Hg] Shailesh Ball Other [facility] Other 05-19-2022 11:00-0400 Body height 170.18 cm Tamar Perea Other [facility] Other 05-19-2022 11:00-0400 Body mass index (BMI) [Ratio] 22.02 kg/m2 Tamar Perea Other [facility] Other 05-19-2022 11:00-0400 Body temperature 97.5 [degF] Tamar Perea Other [facility] Other 05-19-2022 11:00-0400 Body weight 63.78 kg Tamar Perea Other [facility] Other 05-19-2022 11:00-0400 Diastolic blood pressure 76 mm[Hg] Tamar Perea Other [facility] Other 05-19-2022 11:00-0400 SaO2% (BldA) [Mass fraction] 98 % Tamar Perea Other [facility] Other 05-19-2022 11:00-0400 Systolic blood pressure 148 mm[Hg] Tamar Perea Other [facility] Other 04-15-2022 08:57-0500 Blood Pressure Location Ivelisse Lue [facility] 04-15-2022 08:57-0500 Diastolic blood pressure 78 mm[Hg] Ivelisse Lue [facility] 04-15-2022 08:57-0500 Heart rate 68 /min Ivelisse Lue [facility] 04-15-2022 08:57-0500 Respiratory rate 16 /min Ivelisse Lue [facility] 04-15-2022 08:57-0500 Systolic blood pressure 122 mm[Hg] Ivelisse Lue [facility] 03-10-2022 11:30-0500 Body height 170.18 cm Raul Quan Other [facility] Other 03-10-2022 11:30-0500 Body mass index (BMI) [Ratio] 21.2 kg/m2 Raul Quan Other [facility] Other 03-10-2022 11:30-0500 Body temperature 97.8 [degF] Raul Quan Other [facility] Other 03-10-2022 11:30-0500 Body weight 61.42 kg Raul Quan Other [facility] Other 03-10-2022 11:30-0500 Diastolic blood pressure 64 mm[Hg] Raul Quan Other [facility] Other 03-10-2022 11:30-0500 SaO2% (BldA) [Mass fraction] 98 % Raul Quan Other [facility] Other 03-10-2022 11:30-0500 Systolic blood pressure 108 mm[Hg] Raul Quan Other [facility] Other 02-25-2022 11:09-0500 Blood Pressure Location ADALGISA ANTOINE [facility] 02-25-2022 11:09-0500 Diastolic blood pressure 63 mm[Hg] ADALGISA ARASH [facility] 02-25-2022 11:09-0500 Heart rate 64 /min ADALGISA ARASH [facility] 02-25-2022 11:09-0500 Systolic blood pressure 105 mm[Hg] ADALGISA ARASH [facility] 02-18-2022 14:12-0500 Blood Pressure Location ADALGISA ANTOINE [facility] 02-18-2022 14:12-0500 Diastolic blood pressure 83 mm[Hg] ADALGISA BUSHRY [facility] 02-18-2022 14:12-0500 Heart rate 70 /min ADALGISA BUSHRY [facility] 02-18-2022 14:12-0500 Systolic blood pressure 142 mm[Hg] ADALGISA BUSHRY [facility] 02-11-2022 08:42-0500 Blood Pressure Location Ivelisse Lue [facility] 02-11-2022 08:42-0500 Diastolic blood pressure 73 mm[Hg] Ivelisse Lue [facility] 02-11-2022 08:42-0500 Heart rate 68 /min Ivelisse Lue [facility] 02-11-2022 08:42-0500 Respiratory rate 16 /min Ivelisse Lue [facility] 02-11-2022 08:42-0500 Systolic blood pressure 150 mm[Hg] Ivelisse Lue [facility] 02-05-2022 08:00-0500 Body temperature 99.1 [degF] DO Shailesh Ball Work Phone: [facility] 02-05-2022 08:00-0500 Diastolic blood pressure 76 mm[Hg] DO Shailesh Ball Work Phone: [facility] 02-05-2022 08:00-0500 Heart rate 78 /min DO Shailesh Ball Work Phone: [facility] 02-05-2022 08:00-0500 Respiratory rate 16 /min DO Shailesh Ball Work Phone: [facility] 02-05-2022 08:00-0500 SaO2% (BldA) [Mass fraction] 95 % DO Shailesh Ball Work Phone: [facility] 02-05-2022 08:00-0500 Systolic blood pressure 168 mm[Hg] DO Shailesh Ball Work Phone: [facility] 02-05-2022 03:21-0500 Body weight 64.1 kg DO Shailesh Ball Work Phone: [facility] 02-04-2022 11:43-0500 Inhaled oxygen flow rate 6 L/min DO Shailesh Ball Work Phone: [facility] 02-04-2022 09:31-0500 Body height 167.64 cm DO Shailesh Ball Work Phone: [facility] 02-04-2022 09:31-0500 Body mass index (BMI) [Ratio] 23.3 kg/m2 DO Shailesh Ball Work Phone: [facility] 01-20-2022 12:30-0500 Body height 170.18 cm Raul Quan Other [facility] Other 01-20-2022 12:30-0500 Body mass index (BMI) [Ratio] 21.92 kg/m2 Raul Quan Other [facility] Other 01-20-2022 12:30-0500 Body temperature 97.7 [degF] Raul Quan Other [facility] Other 01-20-2022 12:30-0500 Body weight 63.5 kg Raul Quan Other [facility] Other 01-20-2022 12:30-0500 Diastolic blood pressure 64 mm[Hg] Raul Buehrer Other [facility] Other 01-20-2022 12:30-0500 SaO2% (BldA) [Mass fraction] 99 % Raul Buehrer Other [facility] Other 01-20-2022 12:30-0500 Systolic blood pressure 116 mm[Hg] Raul Buehrer Other [facility] Other 01-05-2022 11:15-0400 Body height 170.18 cm Raul Buehrer Other [facility] Other 01-05-2022 11:15-0400 Body mass index (BMI) [Ratio] 21.92 kg/m2 Raul Buehrer Other [facility] Other 01-05-2022 11:15-0400 Body temperature 96 [degF] Raul Buehrer Other [facility] Other 01-05-2022 11:15-0400 Body weight 63.5 kg Raul Buehrer Other [facility] Other 01-05-2022 11:15-0400 Diastolic blood pressure 58 mm[Hg] Raul Buehrer Other [facility] Other 01-05-2022 11:15-0400 SaO2% (BldA) [Mass fraction] 99 % Raul Buehrer Other [facility] Other 01-05-2022 11:15-0400 Systolic blood pressure 100 mm[Hg] Raul Buehrer Other [facility] Other 11-24-2021 12:30-0400 Body height 170.18 cm Tamar Perea Other [facility] Other 11-24-2021 12:30-0400 Body mass index (BMI) [Ratio] 21.92 kg/m2 Tamar Perea Other [facility] Other 11-24-2021 12:30-0400 Body temperature 97.5 [degF] Tamar Perea Other [facility] Other 11-24-2021 12:30-0400 Body weight 63.5 kg Tamar Perea Other [facility] Other 11-24-2021 12:30-0400 Diastolic blood pressure 50 mm[Hg] Tamar Perea Other [facility] Other 11-24-2021 12:30-0400 SaO2% (BldA) [Mass fraction] 98 % Tamar Perea Other [facility] Other 11-24-2021 12:30-0400 Systolic blood pressure 96 mm[Hg] Tamar Perea Other [facility] Other 10-21-2021 07:30-0400 50 1 Shailesh Dunham Work Phone: [facility] [address] [place] Work Phone: Comment on above: [id number] 10-15-2021 08:27-0400 Body height 167.64 cm DO Shailesh Dunham Work Phone: [facility] 10-15-2021 08:27-0400 Body temperature 97.7 [degF] DO Shailesh Ball Work Phone: [facility] 10-15-2021 08:27-0400 Body weight 66 kg DO Shailesh Ball Work Phone: [facility] 10-15-2021 08:27-0400 Diastolic blood pressure 75 mm[Hg] DO Shailesh Ball Work Phone: [facility] 10-15-2021 08:27-0400 Heart rate 73 /min DO Shailesh Ball Work Phone: [facility] 10-15-2021 08:27-0400 Respiratory rate 16 /min DO Shailesh Ball Work Phone: [facility] 10-15-2021 08:27-0400 SaO2% (BldA) [Mass fraction] 97 % DO Shailesh Ball Work Phone: [facility] 10-15-2021 08:27-0400 Systolic blood pressure 143 mm[Hg] DO Shailesh Ball Work Phone: [facility] 09-30-2021 13:30-0400 Body height 170.18 cm Tamar Perea Other [facility] Other 09-30-2021 13:30-0400 Body mass index (BMI) [Ratio] 24.27 kg/m2 Tamar Perea Other [facility] Other 09-30-2021 13:30-0400 Body temperature 97.4 [degF] Tamar Perea Other [facility] Other 09-30-2021 13:30-0400 Body weight 70.31 kg Tamar Perea Other [facility] Other 09-30-2021 13:30-0400 Diastolic blood pressure 70 mm[Hg] Tamar Ruttino Other [facility] Other 09-30-2021 13:30-0400 SaO2% (BldA) [Mass fraction] 98 % Tamar Perea Other [facility] Other 09-30-2021 13:30-0400 Systolic blood pressure 140 mm[Hg] Tamar Martinezjerardoo Other [facility] Other 09-15-2021 11:00-0400 Body height 170.18 cm Tamar Perea Other [facility] Other 09-15-2021 11:00-0400 Body mass index (BMI) [Ratio] 24.27 kg/m2 Tamar Zhuo Other [facility] Other 09-15-2021 11:00-0400 Body temperature 96.4 [degF] Tamar Perea Other [facility] Other 09-15-2021 11:00-0400 Body weight 70.31 kg Tamar Perea Other [facility] Other 09-15-2021 11:00-0400 Diastolic blood pressure 72 mm[Hg] Tamar Martinezmoy Other [facility] Other 09-15-2021 11:00-0400 SaO2% (BldA) [Mass fraction] 98 % Tamar Martinezjerardoo Other [facility] Other 09-15-2021 11:00-0400 Systolic blood pressure 138 mm[Hg] Tamar Martinezjerardoo Other [facility] Other 07-28-2021 10:45-0400 Body height 170.18 cm Raul Osoriojakub Other [facility] Other 07-28-2021 10:45-0400 Body mass index (BMI) [Ratio] 24.27 kg/m2 Raul Quan Other [facility] Other 07-28-2021 10:45-0400 Body temperature 96.6 [degF] Raul Osoriojakub Other [facility] Other 07-28-2021 10:45-0400 Body weight 70.31 kg Raul Osoriojakub Other [facility] Other 07-28-2021 10:45-0400 Diastolic blood pressure 78 mm[Hg] Raulchristiana Quan Other [facility] Other 07-28-2021 10:45-0400 SaO2% (BldA) [Mass fraction] 98 % Raul Lawrencemary ann Other [facility] Other 07-28-2021 10:45-0400 Systolic blood pressure 190 mm[Hg] Raul Avelina Other [facility] Other Encounters Encounter Date Encounter Type Care Provider Facility [facility]: 10-16-2024 End: 10-16-2024 ambulatory [facility] Start: 10-09-2024 End: 10-09-[address] [facility] Start: 09-25-2024 ambulatory ARUN [facility] Start: 09-19-2024 ambulatory KEATON [facility] Start: 09-13-2024 End: 09-13-2024 ambulatory Shailesh Dunham DO Work Phone: [facility] Work Phone: Start: 09-13-2024 End: 09-13-2024 Patient encounter procedure Shailesh Dunham DO -[facility] Work Phone: Start: 09-12-2024 ambulatory JEZ [facility] Start: 09-05-2024 Non-patient / Non-visit Maureen Kelley CMA -[facility] Work Phone: Start: 09-04-2024 Evaluation and management of inpatient [facility] Start: 09-04-2024 Evaluation and management of inpatient AURN DAYAMI [facility] Start: 09-02-2024 End: 09-04-2024 Evaluation and management of inpatient [facility] Start: 09-02-2024 Non-patient / Non-visit [facility] Work Phone: Start: 09-01-2024 Non-patient / Non-visit Raul [facility]ne [facility] Work Phone: Start: 08-31-2024 ambulatory ZIAChavez DOOLEY [facility] Start: 08-31-2024 End: 08-31-[address] [facility] Start: 08-22-2024 Non-patient / Non-visit Shailesh kevin [facility] Work Phone: Start: 08-15-2024 End: 08-15-2024 ambulatory JEZ [facility] Start: 08-14-2024 End: 08-14-2024 ambulatory [facility] Work Phone: Start: 08-14-2024 End: 08-14-2024 Patient encounter procedure [facility] Work Phone: Start: 08-10-2024 End: 08-10-2024 ambulatory [facility] Start: 08-10-2024 End: 08-10-2024 ambulatory [facility] Start: 08-07-2024 Non-patient / Non-visit [facility] Work Phone: Start: 08-04-2024 Evaluation and management of inpatient ARTEMIO PALMA [facility] Start: 08-03-2024 Evaluation and management of inpatient SAMMIE CORRAL [facility] Start: 08-02-2024 Evaluation and management of inpatient PILY OSPINA [facility] Start: 08-02-2024 Evaluation and management of inpatient CHRIS CHAVEZ [facility] Start: 08-02-2024 Evaluation and management of inpatient [facility]ARD[facility] Start: 08-02-2024 Evaluation and management of inpatient HAILE BLAIR [facility] Start: 08-01-2024 Evaluation and management of inpatient [facility] Start: 08-01-2024 End: 08-06-2024 Evaluation and management of inpatient LAZARA CARDOSO [facility] Start: 08-01-2024 End: 08-01-2024 ambulatory ESTUARDO [facility] Start: 07-28-[address] [facility] Start: 07-18-2024 Non-patient / Non-visit [facility] Physician [facility] Work Phone: Start: 07-12-2024 End: 07-12-2024 ambulatory [facility] Work Phone: Start: 07-12-2024 End: 07-12-2024 Patient encounter procedure [facility] Work Phone: Start: 07-10-2024 End: 07-10-2024 ambulatory [facility] Start: 07-03-2024 Non-patient / Non-visit [facility] Physician [facility] Work Phone: Start: 06-29-2024 Evaluation and management of inpatient LEVY ROMAN [facility] Start: 06-29-2024 Evaluation and management of inpatient KEATON ROBLEDO [facility] Start: 06-27-2024 Evaluation and management of inpatient HELEN MATHEWS [facility] Start: 06-27-2024 [facility] Start: 06-27-2024 amb[facility] Start: 06-27-2024 End: 06-30-2024 Evaluation and management of inpatient LEVY CHILDERS [facility] Start: 06-21-2024 Non-patient / Non-visit [facility] Work Phone: Start: 06-19-2024 ambulatory JEZ [facility] Start: 06-06-2024 End: 06-06-2024 ambulatory ESTUARDO [facility] Start: 05-30-2024 End: 05-30-2024 ambulatory ESTUARDO [facility] Start: 05-30-2024 End: 05-30-2024 ambulatory [facility] Start: 05-25-2024 Non-patient / Non-visit [facility] Work Phone: Start: 05-23-2024 ambulatory [facility] Start: 05-03-2024 End: 05-04-2024 ambulatory [facility] Start: 04-26-2024 End: 04-26-[address] [facility] Start: 04-19-2024 End: 04-19-[address] [facility] Start: 04-18-2024 ambulatory [facility] Start: 04-12-2024 End: 04-12-[address] [facility] Start: 03-21-2024 End: 03-21-2024 ambulatory [facility] Start: 01-19-2024 End: 01-19-[address] [facility] Start: 01-18-2024 End: 01-18-2024 ambulatory [facility] Start: 01-11-2024 End: 01-11-2024 ambulatory DO Shailesh Ball Work Phone: [facility] Work Phone: Start: 01-11-2024 End: 01-11-2024 Patient encounter procedure DO Shailesh Ball Work Phone: [facility] Vascular Surgery Work Phone: Start: 12-22-2023 End: 12-22-2023 ambulatory DO Shailesh Ball Work Phone: [facility] Work Phone: Start: 12-22-2023 End: 12-22-2023 Patient encounter procedure DO Shailesh Ball Work Phone: [facility] Work Phone: Start: 12-17-2023 Non-patient / Non-visit DO Ryder yanna Ball Work Phone: [facility] Work Phone: Start: 11-23-2023 Patient encounter procedure DO Shailesh Ball Work Phone: [facility] Start: 11-23-2023 End: 11-23-2023 ambulatory DO Shailesh Ball Work Phone: [facility] Work Phone: Start: 11-23-2023 End: 11-23-2023 Patient encounter procedure DO Shailesh Ball Work Phone: [facility] Work Phone: Start: 11-15-2023 End: 11-15-2023 ambulatory DO Shailesh Ball Work Phone: [facility] Work Phone: Start: 11-15-2023 End: 11-15-2023 Patient encounter procedure DO Shailesh Ball Work Phone: [facility] Vascular Surgery Work Phone: Start: 11-09-2023 Non-patient / Non-visit DO Ryder yanna Ball Work Phone: [facility] Work Phone: Start: 10-27-2023 End: 10-27-2023 ambulatory CHUN [facility] Start: 10-26-2023 Non-patient / Non-visit DO Ryder yanna Ball Work Phone: [facility] Work Phone: Start: 10-21-2023 End: 10-21-2023 ambulatory DO Shailesh Ball Work Phone: [facility] Work Phone: Start: 10-21-2023 End: 10-21-2023 Patient encounter procedure DO Shailesh Ball Work Phone: [facility] Work Phone: Start: 10-18-2023 Non-patient / Non-visit DO Ryder yanna Ball Work Phone: [facility] Work Phone: Start: 10-17-2023 Non-patient / Non-visit DO Ryder yanna Ball Work Phone: [facility] Work Phone: Start: 10-16-2023 End: 10-17-2023 Non-patient / Non-visit DO Shailesh Ball Work Phone: [facility] Work Phone: Start: 10-16-2023 Non-patient / Non-visit DO Ryder yanna Ball Work Phone: [facility] Work Phone: Start: 10-15-2023 End: 10-17-2023 Non-patient / Non-visit DO Shailesh Ball Work Phone: [facility] Work Phone: Start: 10-14-2023 End: 10-17-2023 Non-patient / Non-visit DO Shailesh Ball Work Phone: [facility] Physician [facility] Work Phone: Start: 10-14-2023 Non-patient / Non-visit DO Ryder yanna Ball Work Phone: [facility] Work Phone: Start: 09-03-2023 End: 09-03-2023 ambulatory DO Shailesh Ball Work Phone: [facility] Work Phone: Start: 09-03-2023 End: 09-03-2023 Patient encounter procedure DO Shailesh Ball Work Phone: [facility] Physician [facility] Work Phone: Start: 08-31-2023 End: 08-31-2023 Patient encounter procedure DO Shailesh Ball Work Phone: [facility] Work Phone: Start: 08-31-2023 End: 08-31-2023 ambulatory DO Shailesh Ball Work Phone: [facility] Work Phone: Start: 08-27-2023 End: 08-27-2023 ambulatory DO Shailesh Ball Work Phone: [facility] Work Phone: Start: 08-27-2023 End: 08-27-2023 Patient encounter procedure DO Shailesh Ball Work Phone: [facility] Physician [facility] Work Phone: Start: 08-19-2023 End: 08-19-2023 ambulatory DO Shailesh Ball Work Phone: [facility] Work Phone: Start: 08-19-2023 End: 08-19-2023 Patient encounter procedure DO Shailesh Ball Work Phone: [facility] Cardiology Work Phone: Start: 07-27-2023 End: 07-27-2023 ambulatory JEZ CORREA Not Available Start: 07-05-2023 End: 07-05-2023 ambulatory DO Shailesh Ball Work Phone: [facility] Work Phone: Start: 07-05-2023 End: 07-05-2023 Patient encounter procedure DO Shailesh Ball Work Phone: [facility] Physician [facility] Vascular Surgery Work Phone: Start: 06-22-2023 End: 06-22-2023 ambulatory DO Shailesh Ball Work Phone: [facility] Work Phone: Start: 06-22-2023 End: 06-22-2023 Patient encounter procedure DO Shailesh Ball Work Phone: [facility] Work Phone: Start: 06-16-2023 End: 06-16-2023 Patient encounter procedure DO Shailesh Ball Work Phone: [facility] [place] Work Phone: Start: 06-16-2023 End: 06-16-2023 ambulatory DO Shailesh Ball Work Phone: [facility] Work Phone: Start: 05-04-2023 End: 05-05-2023 ambulatory Ivelisse Hassan Facility:[facility] Start: 05-04-2023 End: 05-04-2023 Lab Drop off Ivelisse Hassan [facility] Start: 05-04-2023 End: 05-04-2023 Patient encounter procedure Ivelisse Hassan [facility] Start: 04-28-2023 End: 04-29-2023 ambulatory Ivelisse Hassan Facility::[id number] Start: 04-26-2023 Non-patient / Non-visit DO Ryder Dunham Work Phone: [facility] Work Phone: Start: 04-20-2023 Non-patient / Non-visit DO Ryder Dunham Work Phone: [facility] Work Phone: Start: 04-20-2023 Non-patient / Non-visit DO Ryder Dunham Work Phone: [facility] Work Phone: Start: 04-14-2023 End: 04-14-2023 ambulatory Shailesh Dunham Other [facility] Other Start: 04-14-2023 Encounter for other preprocedural examination Shailesh Dunham [facility] Start: 04-14-2023 Office outpatient vi sit 15 minutes Shailesh Dunham [facility] Start: 04-08-2023 End: 04-08-2023 ambulatory Shailesh Dunham Other [facility] Other Start: 04-08-2023 Telephone encounter Shailesh Dunham [facility] Start: 04-05-2023 End: 04-05-2023 ambulatory Shailesh Dunham Other [facility] Other Start: 04-05-2023 Telephone encounter Shailesh Dunham [facility] Start: 04-04-2023 End: 04-04-2023 ambulatory Raul Quan Other [facility] Other Start: 04-04-2023 Telephone encounter Raul Quan [facility] Start: 03-29-2023 End: 03-29-2023 ambulatory Shailesh Dunham Other [facility] Other Start: 03-29-2023 Transitional care ellen antonina srvc 14 day discharge Shailesh Dunham [facility] Start: 03-29-2023 End: 03-29-2023 Patient encounter procedure DO Shailesh Dunham Work Phone: [facility]- Start: 03-25-2023 End: 03-25-2023 ambulatory Raul Quan Other [facility] Other Start: 03-25-2023 Telephone encounter Raul Quan [facility] Start: 03-24-2023 End: 03-25-2023 ambulatory Ivelisse Hassan Facility:CD:[id number] Start: 01-13-2023 End: 01-14-2023 ambulatory Ivelisse Hassan Facility:[facility] [place] Start: 01-13-2023 End: 01-13-2023 Patient encounter procedure Ivelisse Hassan [facility] Start: 11-10-2022 Office outpatient vi sit 25 minutes Raul Quan [facility] Vascular Surgery Start: 11-10-2022 End: 11-10-2022 ambulatory DO Shailesh Dunham Work Phone: [facility] Other Start: 11-10-2022 End: 11-10-2022 Patient encounter procedure DO Shailesh Dunham Work Phone: [facility]trasound [facility] Start: 10-07-2022 End: 10-08-2022 ambulatory Ivelisse Hassan Facility:[facility] Start: 10-07-2022 End: 10-07-2022 Patient encounter procedure Ivelisse Hassan [facility] Start: 08-04-2022 End: 08-04-2022 ambulatory Ralu Quan Other [facility] Other Start: 08-04-2022 Postop follow up vis it related to original px Raul Quan [facility] Start: 07-28-2022 End: 07-29-2022 ambulatory Ivelisse M. Lue Facility:[facility] [place] Start: 07-14-2022 ambulatory Ivelisse M. Lue Facility:C [id number] Start: 07-09-2022 End: 07-09-2022 ambulatory Shailesh Dunham Other [facility] Other Start: 07-09-2022 Telephone encounter Shailesh Dunham [facility] Start: 07-08-2022 End: 07-08-2022 ambulatory Shailesh Dunham Other [facility] Other Start: 07-08-2022 Telephone encounter Shailesh Dunham [facility] Start: 07-08-2022 End: 07-09-2022 Evaluation and management of inpatient DO Shailesh Dunham Work Phone: [facility] Work Phone: Start: 07-01-2022 End: 07-01-2022 ambulatory DO Shailesh Dunham Work Phone: [facility] Work Phone: Start: 07-01-2022 End: 07-01-2022 Patient encounter procedure DO Shailesh Ball Work Phone: [facility] [facility] Work Phone: Start: 06-24-2022 End: 06-25-2022 ambulatory Ivelisse Porras. Lue Facility:[facility] Start: 06-24-2022 End: 06-24-2022 Patient encounter procedure Ivelisse Hassan [facility] Start: 05-21-2022 End: 05-21-2022 ambulatory Shailesh Dunham Other [facility] Other Start: 05-21-2022 Patient encounter procedure Shailesh Dunham [facility] Start: 05-19-2022 End: 05-19-2022 ambulatory Tamar Martinezjerardosb Other [facility] Other Start: 05-19-2022 Follow-up encounter Tamar [facility] Start: 05-13-2022 End: 05-13-2022 ambulatory Raul Quan Other [facility] Other Start: 05-13-2022 Telephone encounter Raul Quan [facility] Start: 05-11-2022 End: 05-11-2022 ambulatory DO Shailesh Dunham Work Phone: [facility] Work Phone: Start: 05-11-2022 End: 05-11-2022 Patient encounter procedure DO Shailesh Dunham Work Phone: [facility] [place] Work Phone: Start: 04-23-2022 End: 04-23-2022 ambulatory Raul Quan Other [facility] Other Start: 04-23-2022 Telephone encounter Raul Quan [facility] Vascular Surgery Start: 04-15-2022 End: 04-15-2022 Lab Drop off Ivelisse Hassan [facility] Start: 04-15-2022 End: 04-15-2022 Patient encounter procedure Ivelisse Hassan [facility] Start: 04-14-2022 End: 04-14-2022 ambulatory Shailesh Dunham Other [facility] Other Start: 04-14-2022 Telephone encounter Shailesh Dunham [facility] Start: 03-10-2022 End: 03-10-2022 ambulatory Raul Quan Other [facility] Other Start: 03-10-2022 Office outpatient vi sit 25 minutes Raul Quan [facility] Vascular Surgery Start: 02-25-2022 End: 02-25-2022 Patient encounter procedure ADALGISA ANTOINE [facility] Start: 02-18-2022 End: 02-18-2022 Patient encounter procedure ADALGISA ANTOINE [facility] [employer] Start: 02-11-2022 End: 02-11-2022 Lab Drop off Ivelisse Hassan [facility] Start: 02-11-2022 End: 02-11-2022 Patient encounter procedure Ivelisse Hassan [facility] Start: 02-10-2022 End: 02-11-2022 ambulatory IVELISSE HASSAN . Facility: Start: 02-07-2022 Encounter for other preprocedural examination DR RAUL QUAN [facility] Start: 02-07-2022 Encounter for preprocedural laboratory examination DR RAUL QUAN [facility] Start: 02-04-2022 End: 02-05-2022 Evaluation and management of inpatient DO Shailesh Dunham Work Phone: [facility] [place] [facility] Start: 02-02-2022 End: 02-03-[address] RAUL QUAN Facility:[facility] Start: 02-02-2022 End: 02-03-2022 Encounter for other preprocedural examination DR RAUL QUAN Facility:[facility] Start: 01-20-2022 Office outpatient vi sit 25 minutes Raul Quan [facility] Vascular Surgery Start: 01-20-2022 End: 01-20-2022 ambulatory DO Shailesh Dunham Work Phone: [facility] Other Start: 01-20-2022 End: 01-20-2022 Patient encounter procedure DO Shailesh Dunham Work Phone: [facility]-Ultrasound [facility] Start: 01-05-2022 End: 01-05-2022 ambulatory Raul Quan Other [facility] Other Start: 01-05-2022 Office outpatient vi sit 25 minutes Raul Quan [facility] Vascular Surgery Start: 12-08-2021 End: 12-09-[address] SHAILESH DUNHAM Facility:[facility] Start: 12-02-2021 End: 12-02-[address] SHAILESH DUNHAM Facility:H1 Start: 11-24-2021 End: 11-24-2021 ambulatory Tamar Perea Other [place] Other Start: 11-24-2021 Patient encounter procedure Tamar Perea [facility] Vascular Surgery Start: 11-11-2021 End: 11-11-[address] SHAILESH DUNHAM Facility:H1 Start: 10-26-2021 End: 10-26-[address] SHAILESH DUNHAM Facility:H1 Start: 10-21-2021 Patient encounter procedure Shailesh Dunham Work Phone: [facility] [address] [place] Work Phone: Start: 10-16-2021 Telephone encounter Judah Vivas MD Work Phone: [facility] 250 DO Work Phone: Start: 10-15-2021 End: 10-15-2021 Evaluation and management of inpatient DO Shailesh Dunham Work Phone: [facility] [place] [facility] Start: 10-13-2021 End: 10-13-2021 Patient encounter procedure DO Shailesh Dunham Work Phone: [facility]-Pre-Surgical Testing Start: 10-06-2021 End: 10-06-2021 Patient encounter procedure DO Shailesh Dunham Work Phone: [facility]-Pre-Surgical Testing Start: 09-30-2021 End: 09-30-2021 ambulatory Tamar Perea Other [employer] Other Start: 09-30-2021 Encounter for other preprocedural examination Tamar Perea [facility] Vascular Surgery Start: 09-30-2021 Follow-up encounter Tamar Livingston [facility] Start: 09-22-2021 End: 09-23-[address] SHAILESH DUNHAM Facility:H1 Start: 09-18-2021 End: 09-18-2021 Patient encounter procedure DO Shailesh Dunham Work Phone: [facility]-CT Scan [facility] [place] Start: 09-15-2021 End: 09-15-2021 ambulatory Tamar Perea Other [facility] Other Start: 09-15-2021 Follow-up encounter Tamar [facility]ston [facility] Start: 08-27-2021 End: 08-27-2021 Patient encounter procedure DO Shailesh Dunham Work Phone: [facility]-Ultrasound [facility] Vascular Start: 08-12-2021 End: 08-13-[address] KURTZ LISTED REQUEST Facility:H1 Start: 07-28-2021 End: 07-28-2021 ambulatory Raul Quan Other [facility] Other Start: 07-28-2021 Office outpatient ne w 45 minutes Raul Quan [facility] Vascular Surgery Start: 06-13-2020 End: 06-13-2020 Patient encounter procedure Lisandra Sher Work Phone: [facility] Work Phone: Patient encounter status Judah Harrington MD Work Phone: [facility] 250 [place] Work Phone: Procedures Date Procedure Procedure Detail Performing Clinician Start: 10-16-2024 Follow-up visit MARIANO DOOLEY Start: 10-09-2024 Follow-up visit MARIANO DOOLEY Start: 08-31-2024 Follow-up visit MARIANO DOOLEY Start: 07-10-2024 Follow-up visit MARIANO DOOLEY Start: 05-03-2024 Follow-up visit MARIANO DOOLEY Start: 04-19-2024 Follow-up visit MARIANO DOOLEY Start: 03-21-2024 Follow-up visit MARIANO DOOLEY Start: 01-19-2024 Follow-up visit Follow-up CHUN BRYANT Start: 01-18-2024 Follow-up visit MARIANO DOOLEY Start: 01-11-2024 US scan of aorta DO [employer] Work Phone: Start: 12-17-2023 E coli Shiga Toxin EIA DO [employer] Phone: Start: 12-17-2023 Salmonella/Shigella Screen DO [employer] Work Phone: Start: 11-15-2023 Doppler ultrasonography of bilateral carotid arteries DO [employer] Work Phone: Start: 10-27-2023 Follow-up visit BRITTANYHCIO SALVADORHAILEY Start: 06-16-2023 Computed tomography of abdomen and pelvis with contrast DO [employer] Work Phone: Start: 05-04-2023 Cystoscopic removal of ureteric stent Ivelisse Hassan Start: 04-28-2023 Cystoscopic insertion of ureteric stent Ivelisse Lue Start: 11-10-2022 Doppler ultrasonography of bilateral carotid arteries DO [employer] Work Phone: Start: 07-28-2022 Cystourethroscopy with dilation of urethral stricture Ivelisse Hassan Start: 07-08-2022 Insertion of carotid artery stent DO Ryder Dunham [employer] Phone: Start: 05-11-2022 Computed tomography angiography of abdominal and/or pelvic blood vessel DO Shailesh Dunham [employer] Phone: Start: 05-11-2022 CT angiography of head DO Shailesh Dunham [employer] Phone: Start: 05-11-2022 CT angiography of neck vessels DO Josué fischer [employer] Phone: Start: 02-10-2022 PSA screening IVELISSE HASSAN . Comment on above: Performed By: #### DATA1C #### [facility] [address] [place] [address] Dr. Jodi Roman Start: 02-05-2022 Repair of aortic aneurysm using bifurcation graft Ivelisse Hassan Start: 02-04-2022 Endovascular repair of abdominal aortic aneurysm DO Shailesh Dunham [employer] Phone: Start: 01-20-2022 Doppler ultrasonography of bilateral carotid arteries DO Shailesh [employer] Phone: Start: 09-18-2021 Computed tomography angiography of abdominal and/or pelvic blood vessel DO Shailesh Dunham [employer] Phone: Start: 08-27-2021 US scan of aorta DO Shailesh [employer] Phone: Start: 08-27-2021 Doppler ultrasonography of bilateral carotid arteries DO Shailesh [employer] Phone: Start: 06-13-2020 Imm. administration COVID19 [employer] Work Phone: Start: 06-13-2020 SARS-CoV-2 vaccine, 0.5ml [employer] Work Phone: Start: 10-18-2019 Transurethral prostatectomy Ivelisse Hassan Start: 04-06-2019 Cystoscope, device (physical object) Ivelisse Hassan Start: 10-06-2016 Colonoscopy Ivelisse Hassan Comment on above: 2010 Arthroscopy of knee Ivelisse reyes Catheterization of left heart Ivelisse Hassan Esophagogastroduodenoscopy K britany Hassan Plan of Treatment Date Care Activity Detail Author Start: 09-01-2023 ambulatory Ambulatory Facility: [place] Start: 08-19-2023 [facility] Start: 07-09-2022 [facility] Start: 07-08-2022 Hospital admission [facility] Start: 07-08-2022 Patient referral to dietitian [facility] Start: 02-05-2022 [facility] Start: 02-04-2022 [facility] Start: 02-04-2022 Hospital admission [facility] Start: 10-21-2021 STRESS NUC, Provider: SAL HHVI NUCLEAR 01,[id number], Status: Pen, Time: 7:30 AM STRESS NUC, Provider: SAL HHVI NUCLEAR 01,[id number], Status: Pen, Time: 7:30 AM -[facility] DO Work Phone: Start: 10-15-2021 [facility] Work Phone: Start: 10-15-2021 OR Percutaneous EVAR AAA (Not Applicable) OR Percutaneous EVAR AAA (Not Applicable) [facility] Start: 10-15-2021 End: 10-15-2021 Evaluation and management of inpatient AAA (abdominal aortic aneurysm) [facility]-[address] [place] [address] Surgical Start: 10-13-2021 End: 10-13-2021 Patient encounter procedure Departed Clinical [facility]-Pre-Surgical Testing Comprehensive metabo lic 1999 panel - Serum or Plasma [facility] Comprehensive metabo lic 2000 panel - Serum or Plasma [facility] Holter monitor study [facility] Patient Education [facility] Work Phone: Patient referral [facility] Work Phone: US Gallbladder [facility] Heart limited [facility]hor[facility] Heart Transthoracic [facility] Thoracic and abdo sebastian aorta [facility] Thoracic and abdo sebastian aorta [facility] Thoracic and abdo sebastian aorta [facility] US.doppler Carotid arteries - bilateral [facility] US.doppler Carotid arteries - bilateral [facility] US.doppler Carotid arteries - bilateral [facility] Immunizations Immunization Date Immunization Notes Care Provider David holloway 06-13-2020 Rodney and Rodney COVID 19 Vaccine [facility] Comment on above: Note: Patient tolera shyann well. No signs or symptoms of adverse reactions. Patient waited a minimum of 15 minutes. NEGATED: Highlighted row has not occurred!01-13-2023 influenza virus vaccine, unspecified formulation Ivelisse Mo [facility] Payers Date Payer Category Payer Self-pay [id number] 2020 Unknown [id number] 1959 Self-pay [id number] 1959 Unknown [id number] 1959 Unknown [id number] 1959 Unknown [id number] 1942 Unknown [id number] 2.16.84 0.1.278227.3.579.2.593 1942 Unknown [id number] 2.16.84 0.1.611035.3.579.2.593 1942 Unknown [id number] 2.16.84 0.1.231807.3.579.2.593 1942 Unknown [id number] 2.16.84 0.1.278361.3.579.2.593 1942 Unknown [id number] 2.16.84 0.1.096966.3.579.2.593 1942 Unknown [id number] 2.16.84 0.1.531253.3.579.2.593 1942 Unknown [id number] 2.16.84 0.1.236373.3.579.2.593 1942 Unknown [id number] 2.16.8 40.1.444451.3.579.2.727 1942 Unknown [id number] 2.16.8 40.1.516432.3.579.2.727 1942 Unknown [id number] 2.16.8 40.1.445495.3.579.2.727 1942 Unknown [id number] 2.16.8 40.1.002661.3.579.2.727 1942 Unknown [id number] 2.16.8 40.1.136838.3.579.2.727 1942 Unknown [id number] 2.16.8 40.1.613612.3.579.2.727 1942 Unknown [id number] 2.16.8 40.1.932747.3.579.2.727 1942 Unknown [id number] 2.16.8 40.1.628793.3.579.2.727 1942 Unknown [id number] 2.16.8 40.1.459880.3.579.2.727 1942 Unknown [id number] 2.16.84 0.1.358887.3.579.2.1259 Unknown Unknown [facility] [id number] Unknown [id number] 2.16.84 0.1.938927.3.579.2.593 Unknown [id number] 2.16.8 40.1.373784.3.579.2.531 Unknown [id number] 2.16.8 40.1.441551.3.579.2.531 Unknown [id number] 2.16.8 40.1.513142.3.579.2.531 Unknown [id number] 2.16.8 40.1.481245.3.579.2.531 Unknown [id number] 2.16.8 40.1.653614.3.579.2.531 Social History Date Type Detail Facility Tobacco smoking status Unknown i f ever smoked [facility] Work Phone: Start: 03-08-1955 End: 03-08-1996 Sex Assigned At [facility] Start: 10-15-2021 End: 08-19-2023 Tobacco smoking status NHIS Ex-smoker (finding) [facility] Start: 1940 Sex Assigned At Male [facility] Tobacco smoking status Never [facility] [place] Start: 07-12-2024 End: 08-14-2024 Sex Male (finding) [facility] Medical Equipment Procedure Code Equipment Code Equipment Origin al Text Equipment Identifier Dates Transcarotid artery revascularization (TCAR) Bare-metal carotid artery stent ()[id number] FDA Start: 07-08-2022 Transcarotid artery revascularization (TCAR) Bare-metal carotid artery stent ()[id number] FDA Start: 07-08-2022 Percutaneous endovascular repair of abdominal aortic aneurysm (AAA) Abdominal aorta endovascular stent-graft ()[id number] FDA Start: 02-04-2022 Percutaneous endovascular repair of abdominal aortic aneurysm (AAA) Abdominal aorta endovascular stent-graft ()[id number] FDA Start: 02-04-2022 Percutaneous endovascular repair of abdominal aortic aneurysm (AAA) Abdominal aorta endovascular stent-graft ()[id number] FDA Start: 02-04-2022 Goals Date Patient Goal Desired Activity /State Functional Status Date Assessment Result Facility 05-04-2023 Functional Status N/A [facility] 01-13-2023 Functional Status N/A [facility] 10-07-2022 Functional Status N/A [facility] 07-09-2022 Functional status Patient is Pro gressing Toward Baseline [facility] Work Phone: 06-24-2022 Functional Status N/A [facility] 04-15-2022 Functional Status N/A [facility] 02-25-2022 Functional Status N/A [facility] 02-18-2022 Functional Status N/A [facility] 02-11-2022 Functional Status N/A [facility] 02-05-2022 Functional status Patient at Baseline [facility] Work Phone: 10-15-2021 Functional status Patient at Baseline [facility] Work Phone: Mental Status Date Assessment Result Facility 07-09-2022 Cognitive function Cognitive Sta tus Patient is Progressing Toward Baseline [facility] Work Phone: 02-05-2022 Cognitive function Cognitive Sta tus Patient at Baseline [facility] Work Phone: 10-15-2021 Cognitive function Cognitive Sta tus Patient at Baseline [facility] Work Phone: Clinical Notes 04-18-2020 to 10-16-2024 Note Date & Type Note Facility 10-16-2024 Note [facility] 10-09-2024 Note [facility] 09-25-2024 Note [facility] 09-19-2024 Note [facility] 09-04-2024 Note [facility] 09-04-2024 Note -Status post EVAR in January 25 [facility] 09-04-2024 Note -Status post stent p lacement. continue with aspirin and statin [facility] 09-04-2024 Note high sensitive tropo libby mildly elevated. -Continue trending. Continue with heparin drip. -Patient with history of CAD status post multiple PCI's. continue with Plavix, metoprolol and pravastatin -cardiology on board. [facility] 09-04-2024 Note -cardiology on board , Continue with amiodarone drip. - continue with heparin drip. Pending PPM/ablation -continue monitoring on telemetry [facility] 09-04-2024 Note -Status post loop re robbin placement. Currently on amiodarone drip. [facility] 09-04-2024 Note -Continue home medic ation including losartan, hydralazine and metoprolol. [facility] 09-04-2024 Note -Status post recent TAVR JulyMay 2024. [facility] 09-04-2024 Note [facility] 09-04-2024 Note [facility] 09-04-2024 Note SW consult for C-O T/PT SW received a phone call from [facility] confirming they have ongoing services with this patient. SW added to AVS. [facility] 09-04-2024 Note [facility] 09-03-2024 Note high sensitive tropo libby mildly elevated. -Continue trending. Continue with heparin drip. -Patient with history of CAD status post multiple PCI's. continue with Plavix, metoprolol and pravastatin -cardiology on board. [facility] 09-03-2024 Note -Status post recent TAVR JulyMay 2024. [facility] 09-03-2024 Note -Status post stent p lacement. continue with aspirin and statin [facility] 09-03-2024 Note -Status post loop re robbin placement. Currently on amiodarone drip. [facility] 09-03-2024 Note -Continue home medic ation including losartan, hydralazine and metoprolol. [facility] 09-03-2024 Note high sensitive tropo libby mildly elevated. -Continue trending. Continue with heparin drip. -Patient with history of CAD status post multiple PCI's. continue with Plavix, metoprolol and pravastatin -cardiology on board. [facility] 09-03-2024 Note -cardiology on board , patient is currently on amiodarone drip. -They also switched his Eliquis to heparin drip in case he will need intervention ( ablation/PPM) -continue monitoring on telemetry [facility] 09-03-2024 Note -Status post EVAR in January 25 [facility] 09-03-2024 Note [facility] 09-02-2024 Note Patient has history of paroxysmal atrial fibrillation. He has had multiple episodes of heart palpitations associated with exertion since TAVR [facility] 09-01-2024 Note EKG sinus rhythm with frequent P ACs 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 08-15-2024 Note [facility] 08-10-2024 Note [facility] 08-10-2024 Note [facility] 08-06-2024 Note [facility] 08-06-2024 Note [facility] 08-05-2024 Note [facility] 08-05-2024 Note S/p [facility]AR [facility] Rate controlled Continue Eliquis 2.5 [address] a day [facility] 08-05-[address] [facility] 08-05-2024 Note S/p PCI mid LAD, OM1 , balloon angioplasty of OM [address] [facility] 08-05-2024 Note Continue daily [facility] 08-05-2024 Note X-ray done showed ch ronic granulomatous infiltrates. Patient denies any cough/shortness of breath [facility] 08-05-2024 Note S/p TAVR 08/01 [facility] 08-05-2024 Note Blood and urine cult ures pending Leukocytosis Resolved. Monitor for any ongoing fever. [facility] 08-05-2024 Note Urinalysis positive for UTI Urine culture pending Treat empirically with ceftriaxone [facility] 08-05-2024 Note [facility] 08-05-2024 Note [facility] 08-04-2024 Note [facility] 08-04-2024 Note [facility] 08-04-2024 Note [facility] 08-04-2024 Note S/p EVAR January 2022 [facility] 08-04-2024 Note S/p PCI mid LAD, OM1 , balloon angioplasty of OM [address] [facility] 08-04-2024 Note S/p TAVR 08/01 [facility] 08-04-2024 Note X-ray done showed ch ronic granulomatous infiltrates. Patient denies any cough/shortness of breath [facility] 08-04-2024 Note Blood and urine cult ures pending Leukocytosis is improving. [facility] 08-04-2024 Note Urinalysis positive for UTI Urine culture pending Treat empirically with ceftriaxone [facility] 08-04-2024 Note Continue daily [facility] 08-04-2024 Note Rate controlled Resume Eliquis 2.5 mg twice a day [facility] 08-04-[address] [facility] 08-04-2024 Note [facility] 08-04-2024 Note [facility] 08-03-2024 Note Diet statin [facility] 08-03-2024 Note [facility] 08-03-2024 Note As above [facility] 08-03-2024 Note As above Awaiting blood cultures and urine cultures will continue antibiotic for now [facility] 08-03-2024 Note [facility] 08-03-2024 Note Telemetry rate contr ol as infiltrate above Eliquis to be resumed once hematoma stabilized [facility] 08-03-2024 Note [facility] 08-03-2024 Note [facility] 08-03-2024 Note [facility] 08-03-2024 Note [facility] 08-03-2024 Note [facility] 08-02-2024 Note [facility] 08-02-2024 Note [facility] 08-01-2024 Note [facility] 08-01-2024 Note [facility] 07-12-2024 Evaluation note Diagnosis Onset Date Resolution [...] replacement) Jul, 2024 acute August 142024 11:39am [facility] Work Phone: 1(272) 191-399605-07-2025 Evaluation note* Diagnosis Onset Date Resolution Status [...] July 12, 2024 3:00pm AAA (abdominal aortic aneury sm) without rupture acute August 14, 2024 11:39am Anemia acute August 14, 2024 11:39am ASHD (arteriosclerotic heart disease) acute August 14, 2024 11:39am Atrial fibrillation acute August 14, 2024 11:39am Carotid stenosis, bilateral acute August 14, 2024 11:39am Chronic heart failure with p reserved ejection fraction (HFpEF) acute August 142024 11:39am Hypercholesterolemia acute August 14, 2024 11:39am IFG (impaired fasting glucose) acute August 14, 2024 11:39am Nonrheumatic aortic (valve) stenosis acute August 14, 2024 11:39am NSVT (nonsustained ventricul ar tachycardia) acute August 14, 2024 11:39am Primary hypertension acute August 14, 2024 11:39am S/P TAVR (transcatheter aort ic valve replacement) Jul, 2024 acute August 14, 2024 11:39am Anemia acute September 13, 2024 11:37am ASHD (arteriosclerotic heart disease) acute September 13, 2024 11:37am Atrial fibrillation acute September 13, 2024 11:37am Chronic heart failure with p reserved ejection fraction (HFpEF) acute September 132024 11:37am Hypercholesterolemia acute September 13, 2024 11:37am Hypertension acute September 13 11:37am IFG (impaired fasting glucose) acute September 13, 2024 11:37am Nonrheumatic aortic (valve) stenosis acute September 13, 2024 11:37am NSVT (nonsustained ventricul ar tachycardia) acute September 13, 2024 11:37am Primary hypertension acute September 13, 2024 11:37am S/P TAVR (transcatheter aort ic valve replacement) Jul, 2024 acute September 13, 2024 11:37am [facility] Work Phone: 1(696) 381-730505-05-2025 [facility]20[facility]Un[facility]20[facility] 06-29-2024 [facility]Un[facility]-20[facility] Note- Patient with recent cholecystectomy and partial liver resection, continue outpatient follow-up with the general surgeryUnB[facility] 06-29-2024 Note- [facility]Univers[facility] Note- Loop recorder in place - Holding eliquis per pulmonology recommendation. Plan is to hold for [address] [facility]04-24-2025 Note- S/p EVARUnBrecksville [facility]04-24-2025 Note- Patient with severe aortic valve stenosis with plan for future TAVRUniversSelect [facility] [place]04-24-2025 Note- Status post stentingUnBrecksville [facility]04-24-2025 Note-Results of cardiac cath as noted in H&P -TAVR will be scheduled for a later dateUnBrecksville [facility] 06-29-2024 NoteUnBrec[facility]04-24-2025 NoteUnBrec[facility]04-24-2025 NoteUnB[facility] 06-28-2024 Note- S/p EVARUnBrecksville [facility]04-23-2025 Note- Status post stentingUnBrecksville [facility]04-23-2025 Note- Continue home medsUniThe [facility]04-23-2025 Note- Loop recorder in place - Holding eliquis per pulmonology recommendationUnBrecksville [facility]04-23-2025 Note- Patient with severe aortic valve stenosis with plan for future TAVRUniThe [facility]Health System04-23-[facility]04[facility] Note- Patient with recent cholecystectomy and partial liver resection, continue outpatient follow-[facility] 06-28-[facility]04-[facility]-20[facility] NoteSt[facility]04-23-2025 NoteSt[facility] 06-28-20[facility] NoteSt[facility]04-23-2025 NoteChart reviewed assessment and plan reviewed with nurse practitioner and agreedUnBrecksville [facility]04-22-2025 NoteSt[facility] 06-27-2024 Note- Patient with recent cholecystectomy and partial liver resection, continue outpatient follow-up with the [facility] 06-27-2024 Note- Continue home medsUniThe [facility]04-22-2025 Note- Loop recorder in place -Okay to continue Eliquis per cardiology team on 06/28/2024UnBrecksville [facility]04-22-2025 Note- Patient with severe aortic valve stenosis with plan for future TAVRUniThe MetroHealth System04-22-2025 Note- Status post stentingUnBrecksville [facility]04-22-2025 Note- S/p RADHAAR [facility]02-26-20[facility] NoteSt[facility]02-12-20[facility] NoteSt[facility]02-[facility] [facility]02-11-2025 NoteSt[facility]02-11-20[facility] NoteSt[facility]02-[facility] [facility]01-14-2025 NoteSt[facility]11-13-2024 NoteSt[facility]11-12-[address] [facility]08-21-[address] [facility]02-27-2024 Hospital Discharge instructions Patient Education 05/04/2023 [...] include: ?8 oz (237 mL) of milk, eajzbcz-ojledkmepiqd-ztcmn milk, and calcium- fortifiedfruit juice. Calcium-fortified means [...] ?Spinach (cooked), rhubarb, beets, sweet potatoes, and Cypriot chard. ?Peanuts. ?Potato chips, south sudanese fries, and baked potatoes with skin on. ?Nuts and nut products. ?Chocolate. If you regularly take a diuretic medicine, make sure to eat at least 1 or 2 servings of fruits or vegetables that are high in potassium each day. These include: ?Avocado. ?Banana. ?[place], prune, carrot, or tomato juice. ?Baked potato. [...] magnesium, fish oil, or vitamin B6. Take uqze-rrx-tpofonq and prescription medicines only as told by [...] Casseroles. Pizza. Lasagna. Frozen meals. Potato chips. Somali fries. The items listed above may not [...] provider. Document Revised: 06/04/2022 Document Reviewed: 06/04/2022 [employer] Patient Education 2022 [employer]. Follow Up Care 04/29/2023 08:42:17 With:Mo LEIJA, AKILAH Smith, URO Address: When:Within 4 Month(s) Comments:w/KEDAR [facility] 02-07-2024 Evaluation note* Encounter Date Diagnosis Assessment [...] this time and surgery could be scheduled. [facility] Other 02-07-2024 Evaluation note* Encounter Date Diagnosis [...] control to proceed with his next procedure. [facility] Other 02-01-2024 Evaluation note* Encounter Date Diagnosis Assessment Notes Treatment Notes Treatment Clinical Notes Apr, Primary hypertension (ICD-10 - I10) [facility] Other 01-29-2024 Evaluation note* Encounter Date Diagnosis Assessment Notes Treatment Notes Treatment Clinical Notes Mar, Primary hypertension (ICD-10 - I10) [facility] Other 01-28-2024 Evaluation note* Encounter Date Diagnosis Assessment Notes Treatment Notes Treatment Clinical Notes Mar, Primary hypertension (ICD-10 - I10) [facility] Other 01-22-2024 Evaluation note* Encounter Date Diagnosis [...] resolved INstructed on increasing fluids Restart ASA [facility] Other 11-08-2023 Hospital Discharge instructions Patient Education [...] urethra. Follow these instructions at home: Take lqbu-owb-xyyfzmu and prescription medicines only as told by [...] provider. Document Revised: 09/10/2021 Document Reviewed: 09/10/2021 [employer] Patient Education 2022 [employer]. Follow Up Care 10/07/2022 09:26:45 With:Mo LEIJA, AKILAH Smith, URO Address: When: Unknown [facility] 09-05-2023 Evaluation note* Encounter Date Diagnosis [...] in the office with a CT scan. [facility] Other 08-02-2023 Hospital Discharge instructions Patient Education [...] urethra. Follow these instructions at home: Take dvbu-pur-jhcqklb and prescription medicines only as told by [...] provider. Document Revised: 09/10/2021 Document Reviewed: 09/10/2021 [employer] Patient Education 2022 [employer]. Follow Up Care 07/28/2022 10:29:31 With:Mo LEIJA, AKILAH Smith, URO Address: When:Within 3 Day(s) [facility]30[facility] Evaluation note* Encounter Date Diagnosis [...] a couple of weeks. These have resolved. [facility] Other 05-04-2023 Discharge summary Author Raul Quan [facility] July 09, 2022 12:08pm Note Date/Time July 09, 2022 8:07am [facility] [address] [place] [address] Discharge Summary Signed Patient: Chico Baker MR#: [id number] : 1940 Acct:[id number] Age/Sex: 82 / M Adm Date: 3 Loc: Room: [address] [place] [address]: Raul Quan MD Copies to: [...] midline, neck is supple, no JVD. Bilateral conservator artifacts strength is equal. He has a little [...] <Electronically signed by MD Raul Quan> 07/09/22 [address] [facility] Work Phone: 1(266) 945-237305-03-2023 History and physical note Author Raul Quan [facility] July 08, 2022 11:06am Note Date/Time July 08, 2022 11:06a m [facility] [address] [place] [address] Vascular Surgery H&P Signed Patient: Chico Baker MR#: [id number] : 1940 Acct:[id number] Age/Sex: 82 / M Adm Date: 3 Loc: Room: [address] [place] [address] Type: ADM IN Attending Dr: Raul Quan [...] by MD Raul Quan> 07/08/22 [address] [facility] Work Phone: 1(510) 608-474104-19-2023 Hospital Discharge instructions Patient Education 06/24/2022 09:42:41 [...] Follow these instructions at home: Medicines Take yubx-fqn-kuaaagk and prescription medicines only as told by [...] or the blood stops without treatment. Take jixn-hqs-sqlaxtf and prescription medicines only as told by your health care provider. Drink enough fluid to keep your urine pale yellow. This information is not intended to replace advice given to you by your health care provider. Make sure you discuss any questions you have with your health care provider. Document Revised: 10/23/2020 Document Reviewed: 10/23/2020 [employer] Patient Education 2022 [employer]. 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 Walk daily Inspect feet daily for cuts [facility] Other 03-14-2023 Evaluation note* Encounter Date Diagnosis [...] left TCAR procedure once he returns from [place] at the end of June beginning of July. We reviewed signs and symptoms of carotid occlusive disease and when would be appropriate to return for further evaluation prior to his next scheduled appointment. We will submit his imaging to [employer] [facility] for review and planning for future TCAR. Patient has prescription for Plavix which we will start prior to his TCAR procedure as well. They verbalized understanding of all discussion today, agree with plan, and denies any questions. [facility] Other 03-08-2023 Evaluation note* Encounter Date Diagnosis Assessment Notes Treatment Notes Treatment Clinical Notes May, Carotid stenosis, bilateral (ICD-10 - I65.23) CTA: < 50% right, 80% left [facility] Other 03-08-2023 Evaluation note* Encounter Date Diagnosis Assessment Notes Treatment Notes Treatment Clinical Notes May, Carotid stenosis, bilateral (ICD-10 - I65.23) CTA: < 50% right, 70% left - 05/2022 [facility] Other 02-08-2023 Hospital Discharge instructions Patient Education [...] prostate. Follow these instructions at home: Take eoug-lwj-rxlxveu and prescription medicines only as told by [...] 02/19/2001 Document Revised: 05/07/2018 Document Reviewed: 11/12/2016 [employer] Patient Education 2020 [employer] Follow Up Care 02/11/2022 10:55:52 With:Mo LEIJA, AKILAH Smith, URO Address: When: Unknown [facility] 02-07-2023 Evaluation note* Encounter Date Diagnosis Assessment Notes Treatment Notes Treatment Clinical Notes Apr, Primary hypertension (ICD-10 - I10) [facility] Other 01-03-2023 Evaluation note* Encounter Date Diagnosis [...] to perform simultaneously to minimize contrast exposure. [facility] Other 12-21-2022 Hospital Discharge instructions Patient Education 02/25/2022 12:02:33 Rash, Adult, Qhnd-kx-Mwoj Rash, Adult A rash is a change [...] with your condition: Medicine Take or apply xlrl-psa-gbibiis and prescription medicines only as told by [...] the rash from spreading. Take or apply oicx-izi-oascczj and prescription medicines only as told by [...] 08/10/2008 Document Revised: 06/16/2019 Document Reviewed: 09/26/2018 [employer] Patient Education 2020 [employer] Follow Up Care 02/18/2022 14:33:21 With:Ivelisse Hassan Address:Unknown When: Unknown Comments:Appointment has already been scheduled [facility] 12-14-2022 Hospital Discharge instructions Patient Education [...] including vitamins, herbs, eye drops, creams, and axbq-eql-dglpiql medicines. Any problems you or family members [...] provider tells you to take them. Taking rgeq-vlg-jtadglx medicines, vitamins, herbs, and supplements. Eating and [...] 02/22/2006 Document Revised: 06/14/2019 Document Reviewed: 11/23/2018 [employer] Patient Education 2019 [employer]. Follow Up Care 02/17/2022 16:33:06 With:ADALGISA ANTOINE PA-C, URL Address: [address] [place] [address] [phone] When:02/25/2022 [facility] 12-07-2022 Hospital Discharge instructions Patient Education [...] prostate. Follow these instructions at home: Take uhlz-zrg-vshfljc and prescription medicines only as told by [...] 02/19/2001 Document Revised: 05/07/2018 Document Reviewed: 11/12/2016 [employer] Patient Education 2020 [employer]. Follow Up Care 01/28/2021 10:15:04 With:Mo LEIJA, AKILAH Smith, URO Address: When:6 weeks [facility] 12-01-2022 Discharge summary Author Raul Quan [facility] February 05, 2022 10:08am Note Date/Time February 05, 2022 7 :52am [facility] [address] [place] [address] Discharge Summary Signed Patient: Chico Baker MR#: [id number] : 1940 Acct:[id number] Age/Sex: 81 / M Adm Date: 2 Loc: Room: [address] [place] [address]: Raul Quan MD Copies to: [...] % (Auto) 69.5, Lymph % (Auto) 14.4, [place] % (Auto) 14.8, Eos % (Auto) 0.7, Baso % (Auto) 0.6, Nucleat RBC Rel Count 0.1, Neut # (Auto) 7.1, Lymph # (Auto) 1.5, [place] # (Auto) 1.5 H, Eos # (Auto) 0.1, Baso # (Auto) 0.1 02/04/22 08:25: Corrected WBC 9.3, Uncorrected WBC Count 9.3, RBC 4.10, Hgb 12.4L, Hct 37.5 L, MCV 91.5, MCH 30.2, MCHC 33.0, RDW 13.7, Plt Count 198, MPV 8.5, Neut % (Auto) 70.1, Lymph % (Auto) 16.4, [place] % (Auto) 12.0, Eos % (Auto) 0.9, Baso % (Auto) 0.6, Nucleat RBC Rel Count 0.0, Neut # (Auto) 6.5, Lymph # (Auto) 1.5, [place] # (Auto) 1.1 H, Eos # (Auto) [...] signed by MD Raul Quan> 02/05/22 [address] [facility] Work Phone: 1([phone]) 322-892811-15-2022 Evaluation note* Encounter Date Diagnosis Assessment Notes [...] we will evaluate him for left TCAR. [facility] Other 10-31-2022 Evaluation note* Encounter Date Diagnosis [...] complete and CT confirms candidacy for TCAR [facility] Other 09-19-2022 Evaluation note* Encounter Date Diagnosis Assessment Notes Treatment Notes Treatment Clinical Notes Nov, AAA (abdominal aortic aneurysm) without rupture (ICD-10 - I71.4) This patient is still recovering from his recent orthopedic procedures. He continues with physical therapy and although he is getting stronger, he remains quite fatigued and weak yet. 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 We will give him a few more weeks of physical therapy and have him back in a month or so to reschedule his AAA. He did tell me that he had some abdominal pain [facility] and was taken to the [facility] where a CT of the abdomen was obtained. We will get these studies pushed over for review and comparison. He denies any abdominal pain today and tells me his appetite is pretty good. He knows to call us in the meantime with any issues. [facility] Other 07-26-2022 Evaluation note* Encounter Date Diagnosis [...] agrees with this plan, denies any questions. [facility] Other 07-11-2022 Evaluation note* Encounter Date Diagnosis [...] agrees with this plan, and denies questions. [facility] Other 07-11-2022 Evaluation note* Encounter Date Diagnosis [...] agrees with this plan, and denies questions. [facility] Other 05-23-2022 Evaluation note* Encounter Date Diagnosis [...] returns we will get baseline ankle-brachial indices. [facility] Other 10-06-2021 NoteHNO ID: [id number] Author: Power Catherine MD Service: ? Author Type: Physician Type: Progress Notes Filed: 12/11/2020 11:17 AM Note Text: [facility] OUTPATIENT VISIT DATE December 11, 2020 OUTPATIENT VISIT TYPE EST PRIMARY CARE PHYSICIAN: Shailesh Dunham ([facility]) [address] [place] [address] REFERRING PHYSICIAN Power Catherine [address] [facility] [address] CHIEF COMPLAINT: Patient presents with: Established Patient [...] up. Continue statin therapy. ? Power Catherine, [facility]02-11-2021 NotePatient Outreach (COVAMN) CHICO BAKER ([id number]) 1940 M Date Time Provider Department 04/18/20 KIMBERLEY REHMAN During your visit today, we recorded the following information about you: Allergies As of Date: 04/18/2020 Noted Allergy Reaction SHALINI INHIBITORS 05/09/2015 16 - Unknown GADOLINIUM-CONTAINING CONTRAST ME*05/09/2015 16 - Unknown TETANUS VACCINES AND TOXOID 05/16/2015 16 - Unknown Date Reviewed: 10/18/2017 Reviewed by: Power Catherine - Fully Assessed Order(s):SARS-COVID VACCINE 1ST DOSE APPT [[id number]] Order #: [id number] FUTURE Prescriptions as of 04/18/2020 Sig: ASPIRIN 81 MG TABLET,DELAYED * Take 81 mg by mouth once justice* ISOSORBIDE MONONITRATE ER 30 * Take 30 mg by mouth once justice* CARVEDILOL 12.5 MG TABLET Take 12.5 mg by mouth twice d* DOXAZOSIN 4 MG TABLET Take 4 mg by mouth daily at b* Problem List As Of Date: 04/18/2020 (None) Encounter Status:Closed by [employer] PublicateUSER on 04/22/20[facility] Evaluation + Plan note Future Appointments Appointment Date:04/15/2022 08:45:00 AM Scheduled Provider:Ivelisse Hassan MD Location:[facility] Appointment Type:URO Office Visit [facility] evaluation + Plan note Future Appointments Appointment Date:04/15/2022 08:45:00 AM Scheduled Provider:Ivelisse Hassan MD Location:[facility] Appointment Type:URO Office Visit Diagnostic Tests Pending * [facility]ments Appointment Date:02/25/2022 11:00:00 AM Scheduled Provider:ADALGISA ANTOINE PA-C Location:[facility] Appointment Type:URO Office Visit Appointment Date:04/15/2022 08:45:00 AM Scheduled Provider:Ivelisse Hassan MD Location:[facility] Appointment Type:URO Office Visit [facility] evaluation + Plan note Future Appointments Appointment Date:06/24/2022 09:30:00 AM Scheduled Provider:Ivelisse Hassan MD Location:[facility] Appointment Type:URO Office Visit [facility] evaluation + Plan note Future Appointments Appointment Date:01/13/2023 09:00:00 AM Scheduled Provider:Ivelisse Hassan MD Location:[facility] Appointment Type:URO Office Visit [facility] evaluation + Plan note Future Appointments Appointment Date:09/01/2023 11:00:00 AM Scheduled Provider:Ivelisse Hassan MD Location:[facility] Appointment Type:URO Office Visit [facility] Evaluation + Plan note Future Appointments Appointment Date:09/01/2023 11:00:00 AM Scheduled Provider:Ivelisse Hassan MD Location:[facility] Appointment Type:URO Office Visit Diagnostic Tests Pending * Calculi Analysis [facility] Diagnosis Onset Date Resolution Status AAA (abdominal aortic aneurysm) acute [facility] Work Phone: Evaluikygh noteNo assessment information available [facility] Work Phone: evaluation noteNo InformationNorth RewardsPay Other Evaluation note* Diagnosis Onset Date Resolution Status Left carotid stenosis acute [facility] Work Phone: Evaluation note* Diagnosis Onset Date Resolution Status Hypercholesterolemia acute IFG (impaired fasting glucose) acute Kidney stones acute Nonrheumatic aortic (valve) stenosis acute Peripheral artery disease ac [place] Primary hypertension acute [facility] Work Phone: Evaluation note* Diagnosis Onset Date Resolution Status Gallbladder polyp acute Hypercholesterolemia acute IFG (impaired fasting glucose) acute Nonrheumatic aortic (valve) stenosis acute Paget's disease of bony pelvis acute Peripheral artery disease ac [place] Primary hypertension acute [facility] Work Phone: Evaluation note* Diagnosis Onset Date Resolution Status Gallbladder polyp acute Hypercholesterolemia acute IFG (impaired fasting glucose) acute Nonrheumatic aortic (valve) stenosis acute Paget's disease of bony pelvis acute Peripheral artery disease ac [place] Primary hypertension acute AAA (abdominal aortic aneurysm) without rupture acute [facility] Work Phone: Evaluation note* Diagnosis Onset Date Resolution Status Gallbladder polyp acute Hypercholesterolemia acute IFG (impaired fasting glucose) acute Nonrheumatic aortic (valve) stenosis acute Paget's disease of bony pelvis acute Peripheral artery disease [place] Primary hypertension acute AAA (abdominal aortic aneurysm) without rupture acute AAA (abdominal aortic aneurysm) without rupture acute Benign prostatic hyperplasia with lower urinary tract symptoms acute Gallbladder polyp acute Hypercholesterolemia acute Mass of gallbladder acute Nonrheumatic aortic (valve) stenosis acute Paget's disease of bony pelvis acute Peripheral artery disease [place] Primary hypertension acute [facility] Work Phone: Evaluation note* Diagnosis Onset Date Resolution Status Hypercholesterolemia acute IFG (impaired fasting glucose) acute Nonrheumatic aortic (valve) stenosis acute Paget's disease of bony pelvis acute Peripheral artery disease [place] Primary hypertension acute AAA (abdominal aortic aneurysm) without rupture acute AAA (abdominal aortic aneurysm) without rupture acute Benign prostatic hyperplasia with lower urinary tract symptoms acute Hypercholesterolemia acute Mass of gallbladder acute Nonrheumatic aortic (valve) stenosis acute Paget's disease of bony pelvis acute Peripheral artery disease [place] Primary hypertension acute AAA (abdominal aortic aneurysm) without rupture acute Hypercholesterolemia acute IFG (impaired fasting glucose) acute Mass of gallbladder acute Nonrheumatic aortic (valve) stenosis acute Peripheral artery disease [place] Primary hypertension acute Preop exam for internal medicine noneactive [facility] Work Phone: Evaluation note* Diagnosis Onset Date Resolution Status Hypercholesterolemia acute IFG (impaired fasting glucose) acute Nonrheumatic aortic (valve) stenosis acute Paget's disease of bony pelvis acute Peripheral artery disease [place] Primary hypertension acute AAA (abdominal aortic aneurysm) without rupture acute AAA (abdominal aortic aneurysm) without rupture acute Benign prostatic hyperplasia with lower urinary tract symptoms acute Hypercholesterolemia acute Mass of gallbladder acute Nonrheumatic aortic (valve) stenosis acute Paget's disease of bony pelvis acute Peripheral artery disease ac [place] Primary hypertension acute AAA (abdominal aortic aneurysm) without rupture acute Hypercholesterolemia acute IFG (impaired fasting glucose) acute Mass of gallbladder acute Nonrheumatic aortic (valve) stenosis acute Peripheral artery disease [place] Primary hypertension acute Preop exam for internal medicine noneactive AAA (abdominal aortic aneurysm) without rupture acute Benign prostatic hyperplasia with lower urinary tract symptoms acute Hypercholesterolemia acute Mass of gallbladder acute Nonrheumatic aortic (valve) stenosis acute Paget's disease of bony pelvis acute Peripheral artery disease [place] Primary hypertension acute [facility] Work Phone: Evaluation note* Diagnosis Onset Date Resolution Status AAA (abdominal aortic aneurysm) without rupture acute Benign prostatic hyperplasia with lower urinary tract symptoms acute Hypercholesterolemia acute Mass of gallbladder acute Nonrheumatic aortic (valve) stenosis acute Paget's disease of bony pelvis acute Peripheral artery disease [place] Primary hypertension acute AAA (abdominal aortic aneurysm) without rupture acute Hypercholesterolemia acute IFG (impaired fasting glucose) acute Mass of gallbladder acute Nonrheumatic aortic (valve) stenosis acute Peripheral artery disease [facility] Primary hypertension acute Preop exam for internal medicine noneactive AAA (abdominal aortic aneurysm) without rupture acute Benign prostatic hyperplasia with lower urinary tract symptoms acute Hypercholesterolemia acute Mass of gallbladder acute Nonrheumatic aortic (valve) stenosis acute Paget's disease of bony pelvis acute Peripheral artery disease [place] Primary hypertension acute Acute on chronic heart failu re with preserved ejection fraction (HFpEF) acute Atrial fibrillation acute Hypercholesterolemia acute IFG (impaired fasting glucose) acute Nonrheumatic aortic (valve) stenosis acute NSTEMI (non-ST elevated myocardial infarction) acute Primary hypertension acute [facility] Work Phone: Evaluation note* Diagnosis Onset Date Resolution Status AAA (abdominal aortic aneurysm) without rupture acute Benign prostatic hyperplasia with lower urinary tract symptoms acute Hypercholesterolemia acute Mass of gallbladder acute Nonrheumatic aortic (valve) stenosis acute Paget's disease of bony pelvis acute Peripheral artery disease [place] Primary hypertension acute AAA (abdominal aortic aneurysm) without rupture acute Hypercholesterolemia acute IFG (impaired fasting glucose) acute Mass of gallbladder acute Nonrheumatic aortic (valve) stenosis acute Peripheral artery disease [place] Primary hypertension acute Preop exam for internal medicine noneactive AAA (abdominal aortic aneurysm) without rupture acute Benign prostatic hyperplasia with lower urinary tract symptoms acute Hypercholesterolemia acute Mass of gallbladder acute Nonrheumatic aortic (valve) stenosis acute Paget's disease of bony pelvis acute Peripheral artery disease [place] Primary hypertension acute Acute on chronic heart failu re with preserved ejection fraction (HFpEF) acute Atrial fibrillation acute Hypercholesterolemia acute IFG (impaired fasting glucose) acute Nonrheumatic aortic (valve) stenosis acute NSTEMI (non-ST elevated myocardial infarction) acute Primary hypertension acute AAA (abdominal aortic aneurysm) without rupture acute Carotid stenosis, bilateral acute Former smoker acute [facility] Work Phone: Evaluation note* Diagnosis Onset Date Resolution Status AAA (abdominal aortic aneurysm) without rupture acute Hypercholesterolemia acute IFG (impaired fasting glucose) acute Mass of gallbladder acute Nonrheumatic aortic (valve) stenosis acute Peripheral artery disease [facility] Primary hypertension acute Preop exam for internal medicine noneactive AAA (abdominal aortic aneurysm) without rupture acute Benign prostatic hyperplasia with lower urinary tract symptoms acute Hypercholesterolemia acute Mass of gallbladder acute Nonrheumatic aortic (valve) stenosis acute Paget's disease of bony pelvis acute Peripheral artery disease [facility] Primary hypertension acute Acute on chronic heart [...] elevated myocardial infarction) acute Primary hypertension acute [facility] Work Phone: Evaluation note* Diagnosis Onset [...] aortic (valve) stenosis acute Primary hypertension acute [facility] Work Phone: Evaluation note* Diagnosis Onset [...] (nonsustained ventricular tachycardia) acute Primary hypertension acute [facility] Work Phone: Evaluation note* Diagnosis Onset [...] aortic aneurysm) without rupture acute [facility] Work Phone: Evaluation note* Diagnosis Onset [...] Primary hypertension acute July 12, 2024 3:00pm [facility] Work Phone: History general Narrative - Reported* Type Description Date Medical History hypercholesterolemia Medical History abdominal aortic aneurysm Medical History Carotid stenosis Medical History PAD Surgical History TURP Surgical History knee arthroscopy LEFT Surgical History Vein stripping Hospitalization History See Above [facility] Other Hiskxqp general Narrative - Reported* Type Description Date Medical History hypercholesterolemia Medical History abdominal aortic aneurysm Medical History Carotid stenosis Medical History PAD Surgical History TURP Surgical History knee arthroscopy LEFT Surgical History Vein stripping Surgical History RT FEMUR FX WITH ARABELLA PLACEMENT Hospitalization History See Above [facility] Other Hispays general Narrative - Reported* Type Description Date Medical History hypercholesterolemia Medical History abdominal aortic aneurysm Medical History Carotid stenosis Medical History PAD Medical History [ ] Surgical History TURP Surgical History knee arthroscopy LEFT Surgical History Vein stripping Surgical History RT FEMUR FX WITH ARABELLA PLACEMENT Surgical History EVAR 02/04/2022 Surgical History [ ] Hospitalization History See Above [facility] Other Hisjfvb general Narrative - Reported* Type Description Date [...] History COLONOSCOPY 2019 Hospitalization History See Above [facility] Other Hisjaye general Narrative - Reported* Type Description Date [...] Left TCAR 07/2022 Hospitalization History See Above [facility] Other Hislams general Narrative - Reported* Type Description Date [...] Left TCAR 07/2022 Hospitalization History See Above [facility] Other History general Narrative - Reported* Type [...] left ESWL 03/2023 Hospitalization History See Above [facility] Other Hospital course Narrative No data available for this section [facility] Hospital Discharge instructions No data available for this section [facility] Author Raul Quan [facility] October 15, 2021 4:31pm Note Date/Time October 15, 2021 4: 31pm [facility] [address] [place] [address] Vascular Surgery Progress Note Signed Patient: Chico Baker MR#: [id number] : 1940 Acct:[id number] Age/Sex: 81 / M Adm Date: 2 Loc: 4N Room: 6B3571-9 Type: DIS IN Attending Dr: Raul Quan [...] with evaluation here. I will [facility] to performoutpatient cardiac evaluation and then he will be rescheduled when he is cleared. Code(s): I71.4 - Abdominal aortic aneurysm, without rupture Status: Acute Documented By: Raul Quan MD 10/15/21 162 9 Signed By: <Electronically signed by MD Raul Quan> 10/15/21 1631 [facility] Work Phone: Progress note Author Pb Zurita [facility] October 16, 2021 5:41am Note Date/Time October 16, 2021 5: 41am [facility] [address] [place] [address] Anesthesia Progress Note Signed Patient: Chico Baker MR#: [id number] : 1940 Acct:[id number] Age/Sex: 81 / M Adm Date: 2 Loc: 4N Room: 2E3706-1 Type: DIS IN Attending Dr: Raul Quan MD Copies to: ~ Anesthesia Progress Note Narrative Narrative: Patient for EVAR today for 5+ centimeter infrarenal AAA. Past medical history hypertension, moderate aortic stenosis, and coronary artery disease. Review of medical records and discussion with indicates patient had stress test 2009 positive for infarct and ischemia at which time he was referred to [facility] and had cardiac cath. Medical management was apparently chosen. No interval events,testing, or intervention. Patient has been asymptomatic but sedentary and poor historian. Advised patient and family to see mechanical drawing teacher for consideration of preop stress testing. Discussed with surgeon Documented By: Pb Zurita MD 10/16/2135 Signed By: <Electronically signed by Pb Zurita MD> 10/16/21 6277 [facility] Work Phone: Progress note No data available for this section [facility] reason for referral (narrative)No reason for referral [facility] Reason for Referral No Reason for Referral [...] Encounter for Immunization 1st COVID Vaccine manuel hSer PharmD 06/13/2020 Instructions Instructions not supported for [...] Documentation i71.4 BP check S/P EVAR; [facility] Reason for Visit Gallbladder polyp Hypercholesterolemia IFG [...] Complaint i71.4 BP check S/P EVAR; [facility] Nonrheumatic aortic stenosis sugical clearance, gall bladder [...] Complaint i71.4 BP check S/P EVAR; [facility] Nonrheumatic aortic stenosis sugical clearance, gall bladder [...] Complaint i71.4 BP check S/P EVAR; [facility] Nonrheumatic aortic stenosis sugical clearance, gall bladder [...] Amb Documentation July 03, 2024 11: 37am [facility] f/u cath-HIGH RISK July 12, [...] Amb Documentation July 03, 2024 11: 37am [facility] f/u cath-HIGH RISK July 12, 2024 3: 00pm Amb Documentation August 07, 2024 10:09 am [facility]; TAVR August 14, 2024 11:39 [...] valve rep lacement) August 14, 2024 11:39am Chief Complaint Admit Date Amb Documentation July 03, 2024 11: 37am [facility] f/u cath-HIGH RISK July 12, 2024 3: 00pm Amb Documentation August 07, 2024 10:09 am [facility]; TAVR August 14, 2024 11:39 am Amb Documentation September 05, 2024 10:47 am [facility] follow up September 13, 2024 11:37 am Reason for Visit Admit Date AAA [...] valve rep lacement) August 14, 2024 11:39am Anemia September 13, 2024 11:37 am ASHD (arteriosclerotic heart disease) Ju ly 2024 11:37am Atrial fibrillation September 13, 2024 11:37 am Chronic heart failure with preserved eje ction fraction (HFpEF) September 13, 2024 11:37am Hypercholesterolemia September 13, 2024 11:3 7am Hypertension September 13, 2024 11:37 am IFG (impaired fasting glucose) September 13, 2024 11:37am Nonrheumatic aortic (valve) stenosis Sushil y 2024 11:37am NSVT (nonsustained ventricular tachycard ia) September 13, 2024 11:37am Primary hypertension September 13, 2024 11:3 7am S/P TAVR (transcatheter aortic valve rep lacement) September 13, 2024 11:37am Additional Source Comments Medical History (unrecognize d [...] DATE CREATED AUTHOR AUTHOR'S ORGANIZ ATION 10/28/2021 [facility] DATE CREATED AUTHOR AUTHOR'S ORGANIZ ATION 04/14/2022 [facility] DATE CREATED AUTHOR AUTHOR'S ORGANIZ ATION 05/13/2023 [facility] DATE CREATED AUTHOR AUTHOR'S ORGANIZ ATION 07/29/2023 [facility] EPIC DATE CREATED AUTHOR AUTHOR'S ORGANIZ ATION 01/12/2024 [facility] DATE CREATED AUTHOR AUTHOR'S ORGANIZ ATION 10/24/2024 [facility] REASON FOR VISIT (unrecogniz ed section and content) REF BY DR DUNHAM FOR AAA, PAD AND CAROTID STENOSIS, Needs a new vascular surgeon7 WK FOLLOW UP; SHYANNE'S, ABDOMINAL, CAROTID [facility]K FOLLOW UP; [facility]YANNE'S, ABDOMINAL, CAROTID 08/27/21FOLLOW UP AFTER CTA [facility] 09/18/21-AAAAAA see pt post femur [...] Member Role Status Dates Sheri Christiansen MD Corn Cooker Active Shailesh Dunham DO Primary Care Provider [...] Team Status: Active Member Role Status Dates Shailehs Dunham DO Primary Care Provider Active Start: [...] End: August 14, 2024 Maureen Velasquez CMA [place] Floor Installer Active St art: August 14, 2024 End: August 14, 2024 Team Status: Inactive Member Role Status Dates Shailesh Dunham DO Primary Care Provider Active Start: July 12, 2024 End: July 12, 2024 Shailesh Dunham DO Attending Provider Active Sta rt: July 12, 2024 End: July 12, 2024 Team Status: Inactive Member Role Status Dates Shailesh Dunham DO Primary Care Provider Active Start: August 14, 2024 End: August 14, 2024 Shailesh Dunham , DO Attending Provider Active Sta rt: August 14, 2024 End: August 14, 2024 Maureen Velasquez CMA [place] Floor Installer Active St art: August 14, 2024 End: August 14, 2024 Team Status: Active Member Role Status Dates Shailesh Dunham , DO Primary Care Provider Active Start: August 22, 2024 Shailesh Dunham , DO Attending Provider Active Sta rt: August 22, 2024 Team Status: Active Member Role Status Dates Shailesh Dunham , DO Primary Care Provider Active Start: September 01, 2024 Raul Chadwick , DO Attending Provider Active S tart: September 01, 2024 Team Status: Active Member Role Status Dates Shailesh Dunham , DO Primary Care Provider Active Start: September 02, 2024 Raul Chadwick , DO Attending Provider Active S tart: September 02, 2024 Team Status: Active Member Role Status Dates Shailesh Dunham , DO Primary Care Provider Active Start: September 05, 2024 Maureen Velasquez CMA Attending Provider Active Start: September 05, 2024 Team Status: Inactive Member Role Status Dates Shailesh Dunham , DO Primary Care Provider Active Start: September 13, 2024 End: September 13, 2024 Shailesh Dunham , DO Attending Provider Active Sta rt: September 13, 2024 End: September 13, 2024 Goals (unrecognized section and content) Goals [...] BE BASED ON THE PRIMARY CLINICAL RECORDS. [facility] [employer] provides no warranty or guarantee of the accuracy or completeness of information in this document.
[2024-10-25] MEDS: MORPHINE SULFATE 4 MG/ML VIAL IV (14:05)
[2024-10-25 14:08] LABS: Hematocrit 35.8 % (42.0-54.0); Hemoglobin 12.0 g/dL (14.0-18.0); Immature Granulocytes Abs Auto 0.08 10^3/uL (0.00-0.03); Immature Granulocytes Pct Auto 0.5 % (0.0-0.5); Lymphocytes Absolute Auto 1.8 10^3/uL (1.2-3.8); Mean Corpuscular HGB Conc 33.5 g/dL (29.9-35.2); Mean Corpuscular Hemoglobin 30.8 pg (25.9-34.0); Mean Corpuscular Volume 91.8 fL (80.0-94.0); Platelet Count 256 10^3/uL (150-450); Red Blood Count 3.90 10^6/uL (4.70-6.10); White Blood Count 15.6 10^3/uL (4.0-11.0)
[2024-10-25 14:24] LABS: INR 1.08; Prothrombin Time 11.4 sec (9.0-11.6)
[2024-10-25 14:26] LABS: Alanine Aminotransferase 20 U/L (16-63); Albumin Globulin Ratio 0.8; Albumin Level 3.7 g/dL (3.4-5.0); Alkaline Phosphatase 105 U/L (46-116); Anion Gap 17.0; Aspartate Amino Transferase 18 U/L (15-37); Blood Urea Nitrogen 20.0 mg/dL (7.0-18.0); Calcium 9.1 mg/dL (8.5-10.1); Carbon Dioxide 25.3 mmol/L (21.0-32.0); Chloride 102 mmol/L (98-107); Estimated GFR (African America >60 (>=60 mL/min/1.73m^2); Estimated GFR (Non-African Ame >60 (>=60 mL/min/1.73m^2); Globulin 4.4 g/dL; Glucose 161 mg/dL (74-106); Potassium 4.3 mmol/L (3.5-5.1); Sodium 140 mmol/L (136-145); Total Protein 8.1 g/dL (6.4-8.2)
[2024-10-25 14:39] LABS: Lactate/Lactic Acid 2.6 mmol/L (0.4-2.0)
--- NOTE | 2024-10-25 14:46 | XR_ITS ---
The [address] [address] Patient Name: CHICO BAKER MRN: [id number] date: 1940 Sex: M Assigned Patient Location: ER Current Patient Location: ER Accession/Order Number: [id number] Exam Date: 10/25/2024 15:24 Report Date: 10/25/2024 15:27 At the request of: SAL LOUIS MD Procedure: XR chest 1V Plain film chest Single view HISTORY: Cough. Nausea. COMPARISON: 09/02/2024 FINDINGS: SUPPORT DEVICES: None POSTSURGICAL CHANGES: Loop recorder. HEART: Within normal limits PULMONARY LAVONNE: Within normal limits MEDIASTINUM: Unremarkable LUNGS AND PLEURA: No acute lung process, pleural effusion or pneumothorax identified. Remote granulomatous changes. BONY STRUCTURES: Intact ADDITIONAL FINDINGS None XR/XR chest 1V IMPRESSION: No acute process. Impression dictated by: Raul Solo M.D. 10/25/2024 3:27 PM Dictation Location: [place] Electronically authenticated by: [id number] Y Date: 10/25/2024 15:27
--- NOTE | 2024-10-25 14:46 | CT_ITS ---
The [address] [address] Patient Name: CHICO BAKER MRN: [id number] date: 1940 Sex: M Assigned Patient Location: ER Current Patient Location: ER Accession/Order Number: [id number] Exam Date: 10/25/2024 15:28 Report Date: 10/25/2024 15:37 At the request of: SAL LOUIS MD Procedure: CT abdomen pelvis wo con CT Abdomen and Pelvis withoutcontrast TECHNIQUE: Axial imaging with 2-D reconstruction. . The CT exam was performed using one or more the following dose reduction techniques: Automated exposure control, adjustment of the MA and/or Kv according to patient size, or use of the iterative reconstruction technique. COMPARISON: None History: Mid abdominal pain since this morning. Nausea. Right inguinal hernia reduction. IV dye allergy. LIMITATIONS: None LOWER THORAX aortic valve replacement mild atelectasis. LIVER: Unremarkable GALLBLADDER: Cholecystectomy clips identified. BILE DUCTS: No dilatation SPLEEN: Unremarkable PANCREAS: Unremarkable ADRENAL GLANDS: Unremarkable KIDNEYS:Bilateral nephrolithiasis measuring up to 1 cm. Ill-defined hypodensity anterior portion left kidney up to 1 cm. Indeterminate. 2 small to characterize. No hydronephrosis. AORTA: The aortobiiliac stent graft. Infrarenal fusiform thrombosed [place] aortic aneurysm measures 5.3 x 5.4 cm. No leak. RETROPERITONEUM: No significant retroperitoneal abnormalities identified. MESENTERY:Unremarkable STOMACH:Unremarkable SMALL BOWEL: The small bowel loops are nondistended. APPENDIX: The appendix is normal. COLON: Large burden of stool throughout the colon. Segmental wall thickening of the proximal sigmoid colon. Sigmoid diverticulosis. URINARY BLADDER: Urinary bladder is unremarkable. REPRODUCTIVE SYSTEM: Reproductive structures are unremarkable. PNEUMOPERITONEUM: None PERITONEAL FLUID:None BONY STRUCTURES: Degenerative change. Patchy disease left pelvis Right hip fixation hardware . Remote appearing L1 and L2 compression deformities ABDOMINAL WALL: Unremarkable CT/CT abdomen pelvis wo con IMPRESSION: No bowel obstruction. Constipation. Segment of circumferential wall thickening of proximal sigmoid colon. Numerous adjacent diverticuli. Potential chronic inflammatory changes. Possible surgical resection changes Malignancy not excluded. May consider endoscopic correlation. Unremarkable aortobiiliac stent graft. 5.4 cm in maximal dimension thrombosed [place] aortic aneurysm. No complication. Bilateral nephrolithiasis. No hydronephrosis. Impression dictated by: Raul Solo M.D. 10/25/2024 3:37 PM Dictation Location: [place] [address] Electronically authenticated by: [id number] Y Date: 10/25/2024 15:37
--- NOTE | 2024-10-25 14:49 | ED.ABDPAIN1 ---
HPI - Abdominal Pain General Chief Complaint: Abdominal Pain Stated Complaint: ABDOMINAL PAIN Time Seen by Provider: 10/25/24 13:47 Source: patient and family Mode of arrival: Wheelchair Limitations: no limitations History of Present Illness HPI narrative: The patient have a history of multiple coronary disease including abdominal aortic aneurysm and right inguinal hernia that was not operable because of him being high risk. Patient woke up this morning at 830 with severe pain in his right inguinal hernia associated also with epigastric discomfort and nausea and vomiting. And retching The patient denies any chest pain but he has some discomfort and mostly it was epigastric he also had no dizziness but was retching and nauseous The patient had abdominal pain no diarrhea no constipation and he has been having a cough that is chronic Related Data Home Medications ?Medication ?Instructions ?Recorded ?Confirmed pravastatin 40 mg tablet 40 mg PO QPM 03/12/23 10/25/24 losartan 50 mg tablet 25 mg PO QPM 10/14/23 10/25/24 clopidogrel 75 mg tablet 75 mg PO DAILY 09/01/24 10/25/24 ferrous sulfate 325 mg (65 mg 325 mg PO DAILY 09/01/24 10/25/24 iron) tablet folic acid 1 mg tablet 1 mg PO DAILY 09/01/24 10/25/24 hydralazine 10 mg tablet mg 10/25/24 losartan 25 mg tablet mg 10/25/24 metoprolol succinate 50 mg mg PO 10/25/24 tablet,extended release 24 hr Previous Rx's ?Medication ?Instructions ?Recorded apixaban 2.5 mg tablet (Eliquis) 2.5 mg PO BID #60 tabs 10/17/23 Allergies Allergy/AdvReac Type Severity Reaction Status Date / Time SHALINI Inhibitors Allergy Unknown Unknown Verified 10/25/24 13:45 Iodinated Contrast Media Allergy Unknown Hives Verified 10/25/24 13:45 iodine Allergy Unknown Hives Verified 10/25/24 13:45 tetanus toxoid, adsorbed Allergy Unknown Unknown Verified 10/25/24 13:45 Review of Systems ROS Status of ROS 10 or more systems reviewed and unremarkable except as noted in history and below [facility] Medical History (Updated 10/25/24 @ 18:22 by Elsie Benavides MD) Hyponatremia ?E87.1 - Hypo-osmolality and hyponatremia (ICD-10) Acute on chronic diastolic (congestive) heart failure ?I50.33 - Acute on chronic diastolic (congestive) heart failure (ICD-10) NSTEMI (non-ST elevated myocardial infarction) ?I21.4 - Non-ST elevation (NSTEMI) myocardial infarction (ICD-10) Atrial fibrillation with RVR ?I48.91 - Unspecified atrial fibrillation (ICD-10) Clavicular fracture ?S42.009A - Fracture of unspecified part of unspecified clavicle, initial encounter for closed fracture (ICD-10) Presence of internal carotid stent (~07/2022) ?Z95.828 - Presence of other vascular implants and grafts (ICD-10) Aortic valve stenosis ?I35.0 - Nonrheumatic aortic (valve) stenosis (ICD-10) Heart murmur ?R01.1 - Cardiac murmur, unspecified (ICD-10) Carotid stenosis ?I65.29 - Occlusion and stenosis of unspecified carotid artery (ICD-10) Anemia ?D64.9 - Anemia, unspecified (ICD-10) Femur fracture (~10/2021) ?S72.90XA - Unspecified fracture of unspecified femur, initial encounter for closed fracture (ICD-10) AAA (abdominal aortic aneurysm) ?I71.40 - Abdominal aortic aneurysm, without rupture, unspecified (ICD-10) Heartburn ?R12 - Heartburn (ICD-10) Delayed recovery from anesthesia Urethral stricture ?N35.919 - Unspecified urethral stricture, male, unspecified site (ICD-10) Post-void dribbling ?N39.43 - Post-void dribbling (ICD-10) Penile rash ?R21 - Rash and other nonspecific skin eruption (ICD-10) Paget's disease Nocturia ?R35.1 - Nocturia (ICD-10) Incontinence ?R32 - Unspecified urinary incontinence (ICD-10) Microhematuria ?R31.29 - Other microscopic hematuria (ICD-10) Impotence ?N52.9 - Male erectile dysfunction, unspecified (ICD-10) Hypertension ?I10 - Essential (primary) hypertension (ICD-10) Hyperlipidemia ?E78.5 - Hyperlipidemia, unspecified (ICD-10) Kidney stones ?N20.0 - Calculus of kidney (ICD-10) Gross hematuria ?R31.0 - Gross hematuria (ICD-10) Erectile dysfunction ?N52.9 - Male erectile dysfunction, unspecified (ICD-10) Dysuria ?R30.0 - Dysuria (ICD-10) BPH (benign prostatic hyperplasia) ?N40.0 - Benign prostatic hyperplasia without lower urinary tract symptoms (ICD-10) Asymptomatic microscopic hematuria ?R31.21 - Asymptomatic microscopic hematuria (ICD-10) ASHD (arteriosclerotic heart disease) ?I25.10 - Atherosclerotic heart disease of [place] coronary artery without angina pectoris (ICD-10) Surgical History H/O lithotripsy ?Z98.890 - Other specified postprocedural states (ICD-10) History of open reduction and internal fixation (ORIF) procedure (~10/2021) ?Z98.890 - Other specified postprocedural states (ICD-10) Hx of esophagogastroduodenoscopy ?Z98.890 - Other specified postprocedural states (ICD-10) H/O cardiac catheterization ?Z98.890 - Other specified postprocedural states (ICD-10) H/O arthroscopy of knee ?Z98.890 - Other specified postprocedural states (ICD-10) H/O colonoscopy ?Z98.890 - Other specified postprocedural states (ICD-10) H/O cystoscopy ?Z98.890 - Other specified postprocedural states (ICD-10) H/O transurethral resection of prostate ?Z98.890 - Other specified postprocedural states (ICD-10) ?Z90.79 - Acquired absence of other genital organ(s) (ICD-10) S/P AAA repair (~02/2022) ?Z98.890 - Other specified postprocedural states (ICD-10) ?Z86.79 - Personal history of other diseases of the circulatory system (ICD-10) S/P cystourethroscopy with dilation of urethral stricture ?Z98.890 - Other specified postprocedural states (ICD-10) Social History Within the past year, how often did you have a drink containing alcohol: 2-3 times a week Smoking status: Former smoker Non-prescribed substance use: denies use Previous occupational history: retired Highest level of school completed/degree received: high school graduate Are you now , , , , never or living with a partner: In a typical week, how many times do you talk on the telephone with family, friends, or neighbors: twice per week How often do you get together with friends or relatives: twice per week Little interest or pleasure in doing things: not at all Feeling down, depressed, or hopeless: not at all Feel stressed/tense/nervous/anxious/difficulty sleeping: not at all Do you think of yourself as: straight/heterosexual Gender Identity: male Exam Narrative Exam Narrative: Nurses notes and vital signs reviewed and patient is not hypoxic. General: Well-appearing and in no apparent distress. Skin: Warm, dry, no pallor noted. No rash. Head: Normocephalic, atraumatic. Neck: Supple, non-tender. Eye: Pupils are equal, round and EOMI. No scleral icterus. Ears, Nose, Mouth, and Throat: TM are clear, no nasal mucosal hypertrophy. Oral mucosa is moist, no posterior oropharynx erythema, uvula is mid-line Cardiovascular: Regular Rate and Rhythm without murmur, gallop or rub. Respiratory: No accessory muscle use or respiratory distress. Lungs are clear to auscultation, no wheezing, rales or rhonchi Chest Wall: no tenderness Back: No midline thoracic or lumbar vertebral tenderness. No CVA tenderness Musculoskeletal: normal ROM, no calf or popliteal tenderness, good bilateral anterior tibial pulse that are dopplerable GI: Abdomen is soft, non-distended. Normal bowel sounds. No masses appreciated. Right inguinal area 3 x 5 cm right inguinal hernia that is tender Neurological: A&O x4. No cranial nerve dysfunction observed. Constitutional Vital Signs, click to edit/add: Last Vital Signs Temp 98.2 F 10/25/24 13:45 Pulse 72 10/25/24 17:40 Resp 15 10/25/24 17:40 BP 163/76 H 10/25/24 17:30 Pulse Ox 98 10/25/24 17:40 O2 Del Method Nasal Cannula 10/25/24 14:36 O2 Flow Rate 2 10/25/24 14:36 Course Vital Signs Vital signs: Vital Signs Temperature 98.2 F 10/25/24 13:45 Pulse Rate 62 10/25/24 13:45 Respiratory Rate 20 10/25/24 13:45 Blood Pressure 190/102 H 10/25/24 13:45 Pulse Oximetry 100 10/25/24 13:45 Oxygen Delivery Method Room Air 10/25/24 13:45 Temperature 98.2 F 10/25/24 13:45 Pulse Rate 72 10/25/24 17:40 Respiratory Rate 15 10/25/24 17:40 Blood Pressure 163/76 H 10/25/24 17:30 Pulse Oximetry 98 10/25/24 17:40 Oxygen Delivery Method Nasal Cannula 10/25/24 14:36 Oxygen Delivery Flow Rate 2 10/25/24 14:36 MDM - Abdominal Pain MDM Narrative Medical decision making narrative: The patient EKG showing sinus rhythm with a heart rate of [address] changes compared to old EKG the patient did not have those changes and repeated EKG after few hours showed that the patient had sinus rhythm with heart rate of 65 with the same changes after his pain controlled The patient troponin went up from 13 to 59 The patient CBC shows mild leukocytosis mostly reactive the patient chemistry showing no acute significant pathology I was able after providing the patient with morphine to reduce his hernia and her initial lactic was 2.9 but repeated was normal The patient elevation in the troponin was discussed with the registered nursing professor Dr. Mitchell who agreed that the patient needed observation overnight for further evaluation although he is pain-free The patient also had his case discussed with Dr. Carroll [facility] general surgery and he agreed that the patient is still not candidate for surgery The patient case discussed with and he agreed on admitting the patient for further evaluation Lab Data Labs: Lab Results 10/25/24 10/25/24 Range/Units 13:54 16:45 WBC 15.6 H (4.0-11.0) 10^3/uL RBC 3.90 L (4.70-6.10) 10^6/uL Hgb 12.0 L (14.0-18.0) g/dL Hct 35.8 L (42.0-54.0) % MCV 91.8 (80.0-94.0) fL MCH 30.8 (25.9-34.0) pg MCHC 33.5 (29.9-35.2) g/dL RDW 13.4 (11.0-15.0) % Plt Count 256 (150-450) 10^3/uL MPV 9.9 (9.5-13.5) fL Neut % (Auto) 79.3 H (43.0-75.0) % Lymph % (Auto) 11.8 L (20.5-60.0) % [place] % (Auto) 7.6 (1.7-12.0) % Eos % (Auto) 0.4 L (0.9-7.0) % Baso % (Auto) 0.4 (0.2-2.0) % Neut # (Auto) 12.4 H (1.4-6.5) 10^3/uL Lymph # (Auto) 1.8 (1.2-3.8) 10^3/uL [place] # (Auto) 1.2 H (0.3-0.8) 10^3/uL Eos # (Auto) 0.1 (0.0-0.7) 10^3/uL Baso # (Auto) 0.1 (0.0-0.1) 10^3/uL Abs Immat Gran (auto) 0.08 H (0.00-0.03) 10^3/uL Imm/Tot Granulo (auto) 0.5 (0.0-0.5) % PT 11.4 (9.0-11.6) sec INR 1.08 Sodium 140 (136-145) mmol/L Potassium 4.3 (3.5-5.1) mmol/L Chloride 102 (98-107) mmol/L Carbon Dioxide 25.3 (21.0-32.0) mmol/L Anion Gap 17.0 BUN 20.0 H (7.0-18.0) mg/dL Creatinine 1.06 (0.70-1.30) mg/dL Est GFR ( Amer) >60 (>=60 mL/min/1.73m^2) Est GFR (Non-Af Amer) >60 (>=60 mL/min/1.73m^2) BUN/Creatinine Ratio 18.9 Glucose 161 H (74-106) mg/dL Lactate 2.6 H* 0.7 (0.4-2.0) mmol/L Calcium 9.1 (8.5-10.1) mg/dL Total Bilirubin 0.4 (0.2-1.0) mg/dL AST 18 (15-37) U/L ALT 20 (16-63) U/L Alkaline Phosphatase 105 (46-116) U/L Troponin I High Sens 13.7 59.0 (4.0-76.1) pg/mL Total Protein 8.1 (6.4-8.2) g/dL Albumin 3.7 (3.4-5.0) g/dL Globulin 4.4 g/dL Albumin/Globulin Ratio 0.8 Discharge Plan Discharge Chief Complaint: Abdominal Pain Clinical Impression: Hypertensive emergency, Inguinal hernia, Abdominal pain, Acute electrocardiogram changes, Elevated troponin Patient Disposition: Admitted as Observation Time of Disposition Decision: 18:22
--- NOTE | 2024-10-25 17:21 | ECG_ITS ---
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 Measurements Intervals [place] Rate: 65 P: 64 ID: [id number] QRS: 71 QRSD: 98 T: 14 QT: 414 QTc: 426 Interpretive Statements 1100 Sinus rhythm 1570 with occasional ventricular premature complexes 4068 Nonspecific [place] abnormality 9140 abnormal rhythm ECG Compared to ECG 10/25/2024 14:00:26 Ventricular premature complex(es) now present Electronically Signed On 10-25-2024 18:47:44 EDT by JOEL BARNES M.D.
[2024-10-25 17:27] LABS: Lactate/Lactic Acid 0.7 mmol/L (0.4-2.0)
[2024-10-25 19:45] LABS: Glucose Urine UA NEGATIVE (NEGATIVE)
[2024-10-25 19:55] LABS: Cast Seen? NONE SEEN #/LPF (NONE SEEN); Crystals Seen? None Seen #/HPF (None Seen); Urine Culture Indicated NO
--- OUTSIDE RECORDS SUMMARY | 2024-10-25 20:07 | XMS_ITS | CCD ---
Author Organization [facility] Care Team Providers [employer] Name Role Phone Orlando Dotson Unavailable Raul Quan Unavailable Tamar Perea Unavailable Shailesh Dunham Unavailable DO Shailesh Dunham Primary Care Provider MD Raul Quan Attending Provider KB Perea Attending Provider MD Raul Quan Admit Provider DO Shailesh Dunham Primary Care Provider KB Perea Attending Provider MD Raul Quan Admit Provider MD Raul Quan Attending Provider SHAILESH DUNHAM Primary Care Physician [phone] IVELISSE FRANCIS Admitting Unavailable IVELISSE FRANCIS Attending [...] Care Provider MD Raul Quan Attending Provider [phone] MD Raul Quan Admit Provider DO Shailesh [...] Unavailable DO Shailesh Dunham Primary Care Provider [phone] MD Raul Quan Attending Provider JEZ CORREA Attending Unavailable SHAILESH DUNHAM Referring Unavailable MD Sheri Christiansen Attending Provider [phone] DO Shailesh Dunham Primary Care Provider MD Raul Quan Attending Provider DO Shailesh Dunham Primary Care Provider MD Sheri Christiansen Attending Provider Enrico Shailesh Primary Care Provider [phone] Enrico, DO Cash Primary Care Provider MD Raul Quan Attending [...] JULIAN Attending Unavailable DIEGO SOUSA Admitting Unavailable DAGO CHADWICK Referring Unavailable JEZ CERDA Referring Unavailable [...] (Shalini) Inhibitors Drug Allergy 08-27-19 24 [facility] Tetanus immune globulin (2 sources) Tetanus immune globulin Drug Allergy 08-27-19 24 Unknown Reaction [facility] (5 sources) Angiotensin Converting Enzyme (Shalini) Inhibitors Drug allergy Unknown [facility] Other (6 sources) Tetanus vaccine; Translations: [tetanus toxoid] Drug allergy Unknown [facility] (20 sources) Angiotensin Converting Enzyme (Shalini) Inhibitors; Translations: [Angiotensin-conv erting enzyme inhibitor agent (substance)] Allergy to substance 05-09-19 16 [facility] (8 sources) Contrast media Allergy to substance 10-07-19 22 [facility] (20 sources) Tetanus immune globulin; Translations: [tetanus immune globulin] Drug Allergy 02-24-20 19 Unknown Reaction [facility] (20 sources) Angiotensin-conve rting enzyme inhibitor agent Drug allergy Unknown [facility] Other (2 sources) Tetanus toxoid specific immunoglobulin E Drug allergy Unknown [facility] Other (12 sources) Contrast media; Translations: [Contrast Dye] Allergy to substance unknown [facility] (13 sources) Iodine; Translations: [iodine] Drug Allergy 10-27-19 Unknown (qualifier value) [facility] (11 sources) tetanus toxoid vaccine, inactivated; Translations: [tetanus toxoid] Drug Allergy Unknown (qualifier value) [facility] (1 source) Iodine Drug Allergy [facility] (1 source) Iodine (And Iodine Containting Drugs) Drug allergy (disorder) [facility] (1 source) Tetanus AND Diphtheria Tox,Adult Drug allergy (disorder) [facility] (20 sources) Tetanus vaccine Drug allergy Unknown [facility] Other (20 sources) Iodinated Contrast Media; Translations: [Iodinated Contrast Media] Allergy to substance 10-27-19 Hives [facility] (19 sources) tetanus toxoid, adsorbed; Translations: [tetanus toxoid, adsorbed] Allergy to substance 04-26-19 Unknown Reaction [facility] (1 source) GADOLINIUM-CONTAI MAYA CONTRAST MEDIA; Translations: [GADOLINIUM-CONTA INING CONTRAST MEDIA] Propensity to adverse reactions to drug (disorder) 05-09-19 16 [facility] (1 source) TETANUS AND DIPHTHERIA TOXOIDS; Translations: [TETANUS AND DIPHTHERIA TOXOIDS] Propensity to adverse reactions to drug (disorder) 10-27-19 [facility] (1 source) TETANUS VACCINES AND TOXOID; Translations: [TETANUS VACCINES AND TOXOID] Propensity to adverse reactions to drug (disorder) 05-16-19 16 [facility] Medications Current Medications Medication Drug [...] Daily, # 30 tab(s), Refills(s) 6, Pharmacy: [facility]/pharmacy #[id number], 169, cm, 10/07/22 8:54:00 EDT, Height/Length [...] for 30 day(s), 60 tab(s), Refill(s) 0, [facility]/pharmacy #[id number], 169, cm, 02/11/22 8:44:00 EST, Height/Length [...] acid 7540 MG / polyethylene glycol 3350 90546 MG / potassium chloride 1200 MG / sodium ascorbate 53345 MG / sodium chloride 3200 MG Powder for Oral Solution) / 1 (polyethylene glycol 3350 [id number] MG / potassium chloride 1000 MG / [...] take 2 tablets by mo 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 Shirlene lopez would like patient seen to discuss afib ablation. Msg left appt is scheduled October 16 at 2:40 pm [facility] 36on 09-26-2024 36 Lakisha calls to confi rm amiodarone dose. Dr. Stock writes he is decreasing the dose to 100 mg daily. Lakisha notified. They don't need any medication refills [facility] Follow-Upon 09-25-2024 Follow-Up [facility] Consulton 09-19-2024 Consult [facility] Orders Onlyon 09-18-2024 Orders Only [facility] 36on 09-05-2024 36 [facility] Telephoneon 09-05-2024 Telephone [facility] 30on 09-04-2024 30 [facility] 30 [facility] APTTon 09-04-2024 ACTIVATED PARTIAL THROMBOPLASTIN TIME IN PPP BY COAGULATION ASSAY 83.1 Seconds High 25.0-35.0 [facility] Comment on above: Order Comment: Check aPTT every 6 hours while on heparin infusion, or per protocol. Result Comment: Clin ical significance of the APTT is questionable in the presence of heparin. Performed By: #### L [id number] ####[facility] ([facility])[address] [place] [address] DSon 09-04-2024 DS Normal [facility] 30on 09-03-2024 30 Normal [facility] APTTon 09-03-2024 ACTIVATED PARTIAL THROMBOPLASTIN TIME IN PPP BY COAGULATION ASSAY 72.6 Seconds High 25.0-35.0 [facility] Comment on above: Order Comment: Check aPTT every 6 hours while on heparin infusion, or per protocol. Result Comment: Clin ical significance of the APTT is questionable in the presence of heparin. Performed By: #### L [id number] ####[facility] ([facility])[address] [place] [address] ACTIVATED PARTIAL THROMBOPLASTIN TIME IN PPP BY COAGULATION ASSAY 120.1 Seconds High 25.0-35.0 [facility] Comment on above: Order Comment: Check aPTT every 6 hours while on heparin infusion, or per protocol. Result Comment: Clin ical significance of the APTT is questionable in the presence of heparin. Performed By: #### L [id number] ####[facility] ([facility])[address] [place] [address] ACTIVATED PARTIAL THROMBOPLASTIN TIME IN PPP BY COAGULATION ASSAY 42.3 Seconds High 25.0-35.0 [facility] Comment on above: Order Comment: Basel ine aPTT before initiating heparin infusion. Result Comment: Clin ical significance of the APTT is questionable in the presence of heparin. Performed By: #### L [id number] ####[facility] ([facility])[address] [place] [address] BASIC METABOLIC PANELon 08-07 Anion gap [Moles/Vol] 8 mmol/L Normal 7-20 [facility] Comment on above: Performed By: #### L [id number] ####[facility] ([facility])[address] [place] [address] Calcium [Mass/Vol] 8.1 mg/dL Low 8.6-10.3 [facility] Comment on above: Performed By: #### L [id number] ####[facility] ([facility])[address] [place] [address] Chloride [Moles/Vol] 106 mmol/L Normal 98-107 [facility] Comment on above: Performed By: #### L [id number] ####[facility] ([facility])[address] [place] [address] CO2 [Moles/Vol] 28 mmol/L Normal 21-31 [facility] Comment on above: Performed By: #### L [id number] ####[facility] ([facility])[address] [place] [address] Creatinine [Mass/Vol] 0.88 mg/dL Normal 0.70-1.30 [facility] Comment on above: Performed By: #### L [id number] ####[facility] ([facility])[address] [place] [address] GLOMERULAR FILTRATION RATE ML/MIN/1.73 SQ M.PREDICTED 85.9 mL/min/1.73m*2 Normal >60.0 [facility] Comment on above: Result Comment: [facility]???s estimated glomerular filtration rate (eGFR) will [...] individuals. Performed By: #### L [id number] ####[facility] ([facility])[address] [place] [address] Glucose [Mass/Vol] 109 mg/dL High 70-100 [facility] Comment on above: Performed By: #### L [id number] ####[facility] ([facility])[address] [place] [address] Potassium [Moles/Vol] 4.2 mmol/L Normal 3.5-5.1 [facility] Comment on above: Performed By: #### L [id number] ####[facility] ([facility])[address] [place] [address] Sodium [Moles/Vol] 138 mmol/L Normal 136-145 [facility] Comment on above: Performed By: #### L [id number] ####[facility] ([facility])[address] [place] [address] Urea nitrogen [Mass/Vol] 16 mg/dL Normal 7-25 [facility] Comment on above: Performed By: #### L [id number] ####[facility] ([facility])[address] [place] [address] UREA NITROGEN/CREATININE (MASS RATIO) IN SER/PLAS 18.2 Normal [facility] Comment on above: Performed By: #### L [id number] ####[facility] ([facility] [place] [address] CBCon 09-03-2024 Erythrocyte distribution width (RBC) [Ratio] 13.6 % Normal 11.5-15.0 [facility] Comment on above: Performed By: #### L [id number] ####[facility] ([facility] [place])[address] [place] [address] ERYTHROCYTE MEAN CORPUSCULAR HEMOGLOBIN CONCENTRATION (G/DL) BY AUTOMATED 32.1 g/dL Normal 32.0-35.0 [facility] Comment on above: Performed By: #### L [id number] ####[facility] ([facility])[address] [place], [place] [address] Hematocrit (Bld) [Volume fraction] 31.8 % Low 39.0-50.0 [facility] Comment on above: Performed By: #### L [id number] ####[facility] ([facility])[address] [place], [place] [address] Hemoglobin (Bld) [Mass/Vol] 10.2 g/dL Low 13.0-17.0 [facility] Comment on above: Performed By: #### L [id number] ####[facility] ([facility])[address] [place] [address] MCH (RBC) [Entitic mass] 30.2 pg Normal 27.0-33.0 [facility] Comment on above: Performed By: #### L [id number] ####[facility] ([facility])[address] [place] [address] MCV (RBC) [Entitic vol] 94.1 fL Normal 82.0-98.0 [facility] Comment on above: Performed By: #### L [id number] ####[facility] ([facility])[address] [place] [address] PLATELETS (10*3/UL) IN BLOOD AUTOMATED COUNT 154 10*3/uL Normal 150-400 [facility] Comment on above: Performed By: #### L [id number] ####[facility] ([facility])[address] [place] [address] RBC (Bld) [#/Vol] 3.38 10*6/uL Low 4.20-5.70 [facility] Comment on above: Performed By: #### L [id number] ####[facility] ([facility])[address] [place] [address] WBC (Bld) [#/Vol] 9.73 10*3/uL Normal 4.00-10.60 [facility] Comment on above: Performed By: #### L [id number] ####[facility] ([facility])[address] [place] [address] CONSULTon 09-03-2024 CONSULT Normal [facility] HIGH SENSITIVITY TROPONIN Io n 09-03-2024 HS TROPONIN I (NG/L) 89 ng/L Critically high <20 [facility] Comment on above: Performed By: #### L [id number] ####[facility] ([facility] [place] [place] [address] HS TROPONIN I (NG/L) 123 ng/L Critically high <20 [facility] Comment on above: Performed By: #### L [id number] ####[facility] ([facility])[address] [place] [address] MAGNESIUMon 09-03-2024 Magnesium [Mass/Vol] 1.8 mg/dL Low 1.9-2.7 [facility] Comment on above: Performed By: #### L [id number] ####[facility])[address] [place] [address] 30on 09-02-2024 30 Normal [facility] Basophils Auto (Bld) [#/Vol] Ordered By: Raul Chadwick on 09-02-2024 Basophils (Bld) [#/Vol] 0.0 10 3/uL 0.0-0.1 [facility] Basophils/100 WBC Auto (Bld) Ordered By: Raul Chadwick on 09-02-2024 Basophils/100 WBC (Bld) 0.3 % 0.2-2.0 [facility] Eosinophils/100 WBC Auto (Bl d)Ordered By: Raul Chadwick on 09-02-2024 Eosinophils/100 WBC (Bld) 0.8 % Low 0.9-7.0 [facility] Erythrocyte distribution wid th Auto (RBC) [Ratio]Ordered By: Raul Chadwick on 09-02-2024 Erythrocyte distribution width (RBC) [Ratio] 13.5 % 11.0-15.0 [facility] Estimated glomerular filtrat ion rate (GFR) non- AmericanOrdered By: Raul Chadwick on 09-02-2024 GFR/1.73 sq M.predicted among non-blacks MDRD (S/P/Bld) [Vol rate/Area] mL/min/{1.73_m2} >=60 mL/min/1.7 3m 2 [facility] HPon 09-02-2024 HP [facility] Hematocrit Auto (Bld) [Volum e fraction]Ordered By: Raul Chadwick on 09-02-2024 Hematocrit (Bld) [Volume fraction] 34.2 % Low 42.0-54.0 [facility] Hemoglobin [Mass/volume] in BloodOrdered By: Raul Chadwick on 09-02-2024 Hemoglobin (Bld) [Mass/Vol] 11.2 g/dL Low 14.0-18.0 [facility] Laboratory - Chemistry and C hemistry - challengeOrdered By: Raul Chadwick on 09-02-2024 Calcium [Mass/Vol] 8.6 mg/dL 8.5-10.1 [facility] Chloride [Moles/Vol] 107 mmol/L 98-107 [facility] CO2 [Moles/Vol] 25.8 mmol/L 21.0-32.0 [facility] Creatinine [Mass/Vol] 0.87 mg/dL 0.70-1.30 [facility] GFR/1.73 sq M.predicted MDRD (S/P/Bld) [Vol rate/Area] mL/min/{1.73_m2} >=60 mL/min/1.7 3m 2 [facility] Glucose [Mass/Vol] 168 mg/dL High 74-106 [facility] Potassium [Moles/Vol] 4.3 mmol/L 3.5-5.1 [facility] Sodium [Moles/Vol] 144 mmol/L 136-145 [facility] Urea nitrogen [Mass/Vol] 20.0 mg/dL High 7.0-18.0 [facility] Urea nitrogen/Creatinine [Mass ratio] 23.0 mg/mg [facility] Laboratory - Hematology and Cell countsOrdered By: Raul Chadwick on 09-02-2024 Immature granulocytes/100 WBC (Bld) 0.3 % 0.0-0.5 [facility] Leukocytes [#/volume] correc shyann for nucleated erythrocytes in Blood by Automated counOrdered By: Raul Chadwick on 09-02-2024 WBC corrected for nucl RBC Auto (Bld) [#/Vol] 7.8 10 3/uL 4.0-11.0 [facility] Lymphocytes Auto (Bld) [#/Vo l]Ordered By: Raul Chadwick on 09-02-2024 Lymphocytes (Bld) [#/Vol] 1.2 10 3/uL 1.2-3.8 [facility] Lymphocytes/100 WBC Auto (Bl d)Ordered By: Raul Chadwick on 09-02-2024 Lymphocytes/100 WBC (Bld) 15.2 % Low 20.5-60.0 [facility] MCH Auto (RBC) [Entitic mass ]Ordered By: Raul Chadwick on 09-02-2024 MCH (RBC) [Entitic mass] 30.7 pg 25.9-34.0 [facility] MCHC Auto (RBC) [Mass/Vol]Or dered By: Raul Chadwick on 09-02-2024 MCHC (RBC) [Mass/Vol] 32.7 g/dL 29.9-35.2 [facility] MCV Auto (RBC) [Entitic vol] Ordered By: Raul Chadwick on 09-02-2024 MCV (RBC) [Entitic vol] 93.7 fL 80.0-94.0 [facility] Monocytes Auto (Bld) [#/Vol] Ordered By: Raul Chadwick on 09-02-2024 Monocytes (Bld) [#/Vol] 0.7 10 3/uL 0.3-0.8 [facility] Monocytes/100 WBC Auto (Bld) Ordered By: Raul Chadwick on 09-02-2024 Monocytes/100 WBC (Bld) 9.1 % 1.7-12.0 [facility] Neutrophils Auto (Bld) [#/Vo l]Ordered By: Raul Chadwick on 09-02-2024 Neutrophils (Bld) [#/Vol] 5.8 10 3/uL 1.4-6.5 [facility] Neutrophils/100 WBC Auto (Bl d)Ordered By: Raul Chadwick on 09-02-2024 Neutrophils/100 WBC (Bld) 74.3 % 43.0-75.0 [facility] No Panel InformationOrdered By: Raul Chadwick on 09-02-2024 Troponin I High Sensitivity 126.5 pg/mL Critically high 4.0-76.1 [facility] Comment on above: RESULTS CALLED [...] Eosinophils # (Auto) 0.1 10 3/uL 0.0-0.7 [facility] Immature Granulocyte # (Auto) 0.02 10 3/uL 0.00-0.03 [facility] Platelet mean volume Auto (B ld) [Entitic vol]Ordered By: Raul Chadwick on 09-02-2024 Platelet mean volume (Bld) [Entitic vol] 10.8 fL 9.5-13.5 [facility] Platelets Auto (Bld) [#/Vol] Ordered By: Raul Chadwick on 09-02-2024 Platelets (Bld) [#/Vol] 157 10 3/uL 150-450 [facility] RBC Auto (Bld) [#/Vol]Ordere d By: Raul Chadwick on 09-02-2024 RBC (Bld) [#/Vol] 3.65 10 6/uL Low 4.70-6.[address] [facility] Serum or plasma anion gap de terminationOrdered By: Raul Chadwick on 09-02-2024 Anion gap [Moles/Vol] 15.5 mmol/L [facility] Basophils Auto (Bld) [#/Vol] Ordered By: Raul Chadwick on 09-01-2024 Basophils (Bld) [#/Vol] 0.0 10 3/uL 0.0-0.1 [facility] Basophils/100 WBC Auto (Bld) Ordered By: Raul Chadwick on 09-01-2024 Basophils/100 WBC (Bld) 0.4 % 0.2-2.0 [facility] Eosinophils/100 WBC Auto (Bl d)Ordered By: Raul Chadwick on 09-01-2024 Eosinophils/100 WBC (Bld) 0.5 % Low 0.9-7.0 [facility] Erythrocyte distribution wid th Auto (RBC) [Ratio]Ordered By: Raul Chadwick on 09-01-2024 Erythrocyte distribution width (RBC) [Ratio] 13.5 % 11.0-15.0 [facility] Estimated glomerular filtrat ion rate (GFR) non- AmericanOrdered By: Raul Chadwick on 09-01-2024 GFR/1.73 sq M.predicted among non-blacks MDRD (S/P/Bld) [Vol rate/Area] mL/min/{1.73_m2} >=60 mL/min/1.[address] [place] [address] Hematocrit Auto (Bld) [Volum e fraction]Ordered By: Raul Chadwick on 09-01-2024 Hematocrit (Bld) [Volume fraction] 36.8 % Low 42.0-54.0 [facility] Hemoglobin [Mass/volume] in BloodOrdered By: Raul Chadwick on 09-01-2024 Hemoglobin (Bld) [Mass/Vol] 11.8 g/dL Low 14.0-18.0 [facility] Laboratory - Chemistry and C hemistry - challengeOrdered By: Raul Chadwick on 09-01-2024 Calcium [Mass/Vol] 8.8 mg/dL 8.5-10.1 [facility] Chloride [Moles/Vol] 108 mmol/L High 98-107 [facility] CO2 [Moles/Vol] 25.1 mmol/L 21.0-32.0 [facility] Creatinine [Mass/Vol] 0.86 mg/dL 0.70-1.30 [facility] GFR/1.73 sq M.predicted MDRD (S/P/Bld) [Vol rate/Area] mL/min/{1.73_m2} >=60 mL/min/1.[address] [place] [address] Glucose [Mass/Vol] 127 mg/dL High 74-106 [facility] Potassium [Moles/Vol] 4.0 mmol/L 3.5-5.1 [facility] Sodium [Moles/Vol] 145 mmol/L 136-145 [facility] Urea nitrogen [Mass/Vol] 20.0 mg/dL High 7.0-18.0 [facility] Urea nitrogen/Creatinine [Mass ratio] 23.3 mg/mg [facility] Laboratory - Hematology and Cell countsOrdered By: Raul Chadwick on 09-01-2024 Immature granulocytes/100 WBC (Bld) 0.3 % 0.0-0.5 [facility] Leukocytes [#/volume] correc shyann for nucleated erythrocytes in Blood by Automated counOrdered By: Raul Chadwick on 09-01-2024 WBC corrected for nucl RBC Auto (Bld) [#/Vol] 9.6 10 3/uL 4.0-11.0 [facility] Lymphocytes Auto (Bld) [#/Vo l]Ordered By: Raul Chadwick on 09-01-2024 Lymphocytes (Bld) [#/Vol] 1.7 10 3/uL 1.2-3.8 [facility] Lymphocytes/100 WBC Auto (Bl d)Ordered By: Raul Chadwick on 09-01-2024 Lymphocytes/100 WBC (Bld) 17.9 % Low 20.5-60.0 [facility] MCH Auto (RBC) [Entitic mass ]Ordered By: Raul Chadwick on 09-01-2024 MCH (RBC) [Entitic mass] 30.0 pg 25.9-34.0 [facility] MCHC Auto (RBC) [Mass/Vol]Or dered By: Raul Chadwick on 09-01-2024 MCHC (RBC) [Mass/Vol] 32.1 g/dL 29.9-35.2 [facility] MCV Auto (RBC) [Entitic vol] Ordered By: Raul Chadwick on 09-01-2024 MCV (RBC) [Entitic vol] 93.6 fL 80.0-94.0 [facility] Monocytes Auto (Bld) [#/Vol] Ordered By: Raul Chadwick on 09-01-2024 Monocytes (Bld) [#/Vol] 0.9 10 3/uL High 0.3-0.8 [facility] Monocytes/100 WBC Auto (Bld) Ordered By: Raul Chadwick on 09-01-2024 Monocytes/100 WBC (Bld) 9.4 % 1.7-12.0 [facility] Neutrophils Auto (Bld) [#/Vo l]Ordered By: Raul Chadwick on 09-01-2024 Neutrophils (Bld) [#/Vol] 6.9 10 3/uL High 1.4-6.5 [facility] Neutrophils/100 WBC Auto (Bl d)Ordered By: Raul Chadwick on 09-01-2024 Neutrophils/100 WBC (Bld) 71.5 % 43.0-75.0 [facility] No Panel InformationOrdered By: Raul Chadwick on 09-01-2024 Eosinophils # (Auto) 0.1 10 3/uL 0.0-0.7 [facility] Immature Granulocyte # (Auto) 0.03 10 3/uL 0.00-0.03 [facility] Troponin I High Sensitivity 31.5 pg/mL 4.0-76.1 [facility] Comment on above: CUT-OFF POINTS HAVE [...] volume (Bld) [Entitic vol] 10.7 fL 9.5-13.5 [facility] Platelets Auto (Bld) [#/Vol] Ordered By: Raul Chadwick on 09-01-2024 Platelets (Bld) [#/Vol] 179 10 3/uL 150-450 [facility] RBC Auto (Bld) [#/Vol]Ordere d By: Raul Chadwick on 09-01-2024 RBC (Bld) [#/Vol] 3.93 10 6/uL Low 4.70-6.[address] [facility] Results Follow-Upon 09-02-19 25 Results Follow-Up Normal [facility] Serum or plasma anion gap de terminationOrdered By: Raul Chadwick on 09-01-2024 Anion gap [Moles/Vol] 15.9 mmol/L [facility] 29on 08-31-2024 29 Addended by: SAMMIE CORRAL on: 08/31/2024 07:31 PM Modules accepted: Level of Service Normal [facility] BASIC METABOLIC PANELon 08-07 Anion gap [Moles/Vol] 13 mmol/L Normal 7-20 [facility] Comment on above: Performed By: #### L [id number] ####[facility] ([facility] [place] [place] [address] Calcium [Mass/Vol] 8.9 mg/dL Normal 8.6-10.3 [facility] Comment on above: Performed By: #### L [id number] ####[facility] ([facility] [place] [place] [address] Chloride [Moles/Vol] 108 mmol/L High 98-107 [facility] Comment on above: Performed By: #### L [id number] ####[facility] ([facility])[address] [place] [address] CO2 [Moles/Vol] 21 mmol/L Normal 21-31 [facility] Comment on above: Performed By: #### L [id number] ####[facility] ([facility])[address] [place] [address] Creatinine [Mass/Vol] 0.79 mg/dL Normal 0.70-1.30 [facility] Comment on above: Performed By: #### L [id number] ####[facility] ([facility])[address] [place] [address] GLOMERULAR FILTRATION RATE ML/MIN/1.73 SQ M.PREDICTED 88.7 mL/min/1.73m*2 Normal >60.0 [facility] Comment on above: Result Comment: [facility]???s estimated glomerular filtration rate (eGFR) will [...] individuals. Performed By: #### L [id number] ####[facility] ([facility] [place])[address] [place] [address] Glucose [Mass/Vol] 106 mg/dL High 70-100 [facility] Comment on above: Performed By: #### L [id number] ####[facility] ([facility])[address] [place] [address] Potassium [Moles/Vol] 4.4 mmol/L Normal 3.5-5.1 [facility] Comment on above: Performed By: #### L [id number] ####[facility] ([facility])[address] [place] [address] Sodium [Moles/Vol] 138 mmol/L Normal 136-145 [facility] Comment on above: Performed By: #### L [id number] ####[facility] ([facility])[address] [place] [address] Urea nitrogen [Mass/Vol] 19 mg/dL Normal 7-25 [facility] Comment on above: Performed By: #### L [id number] ####[facility] ([facility])[address] [place] [address] UREA NITROGEN/CREATININE (MASS RATIO) IN SER/PLAS 24.1 Normal [facility] Comment on above: Performed By: #### L [id number] ####[facility] ([facility])[address] [place] [address] CBC WITH AUTO DIFFERENTIALon 08-31-2024 Basophils (Bld) [#/Vol] 0.05 10*3/uL Normal 0.00-0.20 [facility] Comment on above: Performed By: #### L [id number] ####[facility] ([facility])[address] [place] [address] Basophils/100 WBC (Bld) 0.4 % Normal 0.0-1.0 [facility] Comment on above: Performed By: #### L [id number] ####[facility] ([facility])[address] [place] [address] Eosinophils (Bld) [#/Vol] 0.13 10*3/uL Normal 0.00-0.50 [facility] Comment on above: Performed By: #### L [id number] ####[facility] ([facility])[address] [place] [address] Eosinophils/100 WBC (Bld) 1.1 % Normal 0.0-6.0 [facility] Comment on above: Performed By: #### L [id number] ####[facility] ([facility])[address] [place] [address] Erythrocyte distribution width (RBC) [Ratio] 13.4 % Normal 11.5-15.0 [facility] Comment on above: Performed By: #### L [id number] ####[facility] ([facility])[address] [place] [address] ERYTHROCYTE MEAN CORPUSCULAR HEMOGLOBIN CONCENTRATION (G/DL) BY AUTOMATED 31.4 g/dL Low 32.0-35.0 [facility] Comment on above: Performed By: #### L [id number] ####[facility] ([facility] [place])[address] [place] [address] Hematocrit (Bld) [Volume fraction] 37.9 % Low 39.0-50.0 [facility] Comment on above: Performed By: #### L [id number] ####[facility] ([facility])[address] [place] [address] Hemoglobin (Bld) [Mass/Vol] 11.9 g/dL Low 13.0-17.0 [facility] Comment on above: Performed By: #### L [id number] ####[facility] ([facility])[address] [place] [address] Immature granulocytes (Bld) [#/Vol] 0.04 10*3/uL Normal 0.00-0.20 [facility] Comment on above: Performed By: #### L [id number] ####[facility] ([facility])[address] [place] [address] Immature granulocytes/100 WBC (Bld) 0.4 % Normal 0.0-1.0 [facility] Comment on above: Performed By: #### L [id number] ####[facility] ([facility] [place])[address] [place] [address] Lymphocytes (Bld) [#/Vol] 1.59 10*3/uL Normal 1.20-4.00 [facility] Comment on above: Performed By: #### L [id number] ####[facility] ([facility] [place])[address] [place] [address] Lymphocytes/100 WBC (Bld) 14.0 % Low 20.0-45.0 [facility] Comment on above: Performed By: #### L [id number] ####[facility] ([facility] [place])[address] [place] [address] MCH (RBC) [Entitic mass] 29.7 pg Normal 27.0-33.0 [facility] Comment on above: Performed By: #### L [id number] ####[facility] ([facility] [place])[address] [place] [address] MCV (RBC) [Entitic vol] 94.5 fL Normal 82.0-98.0 [facility] Comment on above: Performed By: #### L [id number] ####[facility] ([facility] [place])[address] [place] [address] Monocytes (Bld) [#/Vol] 0.94 10*3/uL Normal 0.10-1.00 [facility] Comment on above: Performed By: #### L [id number] ####[facility] ([facility] [place])[address] [place] [address] Monocytes/100 WBC (Bld) 8.3 % Normal 5.0-12.0 [facility] Comment on above: Performed By: #### L [id number] ####[facility] ([facility] [place])[address] [place] [address] Neutrophils (Bld) [#/Vol] 8.58 10*3/uL High 1.60-7.60 [facility] Comment on above: Performed By: #### L [id number] ####[facility] ([facility] [place])[address] [place] [address] Neutrophils/100 WBC (Bld) 75.8 % High 40.0-72.0 [facility] Comment on above: Performed By: #### L [id number] ####[facility] ([facility] [place])[address] [place] [address] NRBC (PER 100 WBCS) BY AUTOMATED COUNT 0.0 % Normal 0 [facility] Comment on above: Performed By: #### L [id number] ####[facility] ([facility])[address] [place] [address] PLATELETS (10*3/UL) IN BLOOD AUTOMATED COUNT 195 10*3/uL Normal 150-400 [facility] Comment on above: Performed By: #### L [id number] ####[facility] ([facility])[address] [place] [address] RBC (Bld) [#/Vol] 4.01 10*6/uL Low 4.20-5.70 [facility] Comment on above: Performed By: #### L [id number] ####[facility] ([facility])[address] [place], [place] [address] WBC (Bld) [#/Vol] 11.33 10*3/uL High 4.00-10.60 [facility] Comment on above: Performed By: #### L [id number] ####[facility] ([facility])[address] [place] [address] HIGH SENSITIVITY TROPONIN Io n 08-31-2024 HS TROPONIN I (NG/L) 25 ng/L High <20 [facility] Comment on above: Performed By: #### L [id number] ####[facility] ([facility])[address] [place], [place] [address] Orders Onlyon 08-31-2024 Orders Only Normal [facility] Basophils Auto (Bld) [#/Vol] Ordered By: Shailesh Dunham on 08-22-2024 Basophils (Bld) [#/Vol] 0.0 10 3/uL 0.0-0.1 [facility] Basophils/100 WBC Auto (Bld) Ordered By: Shailesh Dunham on 08-22-2024 Basophils/100 WBC (Bld) 0.6 % 0.2-2.0 [facility] Eosinophils/100 WBC Auto (Bl d)Ordered By: Shailesh Dunham on 08-22-2024 Eosinophils/100 WBC (Bld) 1.7 % 0.9-7.0 [facility] Erythrocyte distribution wid th Auto (RBC) [Ratio]Ordered By: Shailesh Dunham on 08-22-2024 Erythrocyte distribution width (RBC) [Ratio] 13.2 % 11.0-15.0 [facility] Estimated glomerular filtrat ion rate (GFR) non- AmericanOrdered By: Shailesh Dunham on 08-22-2024 GFR/1.73 sq M.predicted among non-blacks MDRD (S/P/Bld) [Vol rate/Area] mL/min/{1.73_m2} >=60 mL/min/1.7 3m 2 [facility] Globulin Calc (S) [Mass/Vol] Ordered By: Shailesh Dunham on 08-22-2024 Globulin (S) [Mass/Vol] 4.5 g/dL [facility] Hematocrit Auto (Bld) [Volum e fraction]Ordered By: Shailesh Dunham on 08-22-2024 Hematocrit (Bld) [Volume fraction] 35.1 % Low 42.0-54.0 [facility] Hemoglobin [Mass/volume] in BloodOrdered By: Shailesh Dunham on 08-22-2024 Hemoglobin (Bld) [Mass/Vol] 11.4 g/dL Low 14.0-18.0 [facility] Laboratory - Chemistry and C hemistry - challengeOrdered By: Shailesh Dunham on 08-22-2024 Albumin [Mass/Vol] 3.1 g/dL Low 3.4-5.0 [facility] ALP [Catalytic activity/Vol] 116 U/L 46-116 [facility] ALT [Catalytic activity/Vol] 16 U/L 16-63 [facility] AST [Catalytic activity/Vol] 16 U/L 15-37 [facility] Bilirubin [Mass/Vol] 0.6 mg/dL 0.2-1.0 [facility] Calcium [Mass/Vol] 9.0 mg/dL 8.5-10.1 [facility] Chloride [Moles/Vol] 103 mmol/L 98-107 [facility] CO2 [Moles/Vol] 27.9 mmol/L 21.0-32.0 [facility] Cobalamin (Vitamin B12) [Mass/Vol] 620 pg/mL 232-1245 [facility] Comment on above: Performed at: - [id number] [id number] Director: Stevie Leon PhD, Phone: [phone] Creatinine [Mass/Vol] 1.05 mg/dL 0.70-1.30 [facility] Ferritin [Mass/Vol] 141.0 ng/mL 26.0-388.0 [facility] GFR/1.73 sq M.predicted MDRD (S/P/Bld) [Vol rate/Area] mL/min/{1.73_m2} >=60 mL/min/1.7 3m 2 [facility] Glucose [Mass/Vol] 158 mg/dL High 74-106 [facility] Potassium [Moles/Vol] 4.0 mmol/L 3.5-5.1 [facility] Protein [Mass/Vol] 7.6 g/dL 6.4-8.2 [facility] Sodium [Moles/Vol] 141 mmol/L 136-145 [facility] TSH Qn 1.809 m[IU]/L 0.358-3.74 0 [facility] Urea nitrogen [Mass/Vol] 25.0 mg/dL High 7.0-18.0 [facility] Urea nitrogen/Creatinine [Mass ratio] 23.8 mg/mg [facility] Laboratory - Hematology and Cell countsOrdered By: Shailesh Dunham on 08-22-2024 Immature granulocytes/100 WBC (Bld) 0.3 % 0.0-0.5 [facility] Leukocytes [#/volume] correc shyann for nucleated erythrocytes in Blood by Automated counOrdered By: Shailesh Dunham on 08-22-2024 WBC corrected for nucl RBC Auto (Bld) [#/Vol] 6.9 10 3/uL 4.0-11.0 [facility] Lymphocytes Auto (Bld) [#/Vo l]Ordered By: Shailesh Dunham on 08-22-2024 Lymphocytes (Bld) [#/Vol] 1.1 10 3/uL Low 1.2-3.8 [facility] Lymphocytes/100 WBC Auto (Bl d)Ordered By: Shailesh Dunham on 08-22-2024 Lymphocytes/100 WBC (Bld) 15.8 % Low 20.5-60.0 [facility] MCH Auto (RBC) [Entitic mass ]Ordered By: Shailesh Dunham on 08-22-2024 MCH (RBC) [Entitic mass] 30.6 pg 25.9-34.0 [facility] MCHC Auto (RBC) [Mass/Vol]Or dered By: Shailesh Dunham on 08-22-2024 MCHC (RBC) [Mass/Vol] 32.5 g/dL 29.9-35.2 [facility] MCV Auto (RBC) [Entitic vol] Ordered By: Shailesh Dunham on 08-22-2024 MCV (RBC) [Entitic vol] 94.4 fL High 80.0-94.0 [facility] Monocytes Auto (Bld) [#/Vol] Ordered By: Shailesh Dunham on 08-22-2024 Monocytes (Bld) [#/Vol] 0.7 10 3/uL 0.3-0.8 [facility] Monocytes/100 WBC Auto (Bld) Ordered By: Shailesh Dunham on 08-22-2024 Monocytes/100 WBC (Bld) 10.4 % 1.7-12.0 [facility] Neutrophils Auto (Bld) [#/Vo l]Ordered By: Shailesh Dunham on 08-22-2024 Neutrophils (Bld) [#/Vol] 4.9 10 3/uL 1.4-6.5 [facility] Neutrophils/100 WBC Auto (Bl d)Ordered By: Shailesh Dunham on 08-22-2024 Neutrophils/100 WBC (Bld) 71.2 % 43.0-75.0 [facility] No Panel InformationOrdered By: Shailesh Dunham on 08-22-2024 Eosinophils # (Auto) 0.1 10 3/uL 0.0-0.7 [facility] Folate 47.20 ng/mL 8.60-58.90 [facility] Immature Granulocyte # (Auto) 0.02 10 3/uL 0.00-0.03 [facility] Platelet mean volume Auto (B ld) [Entitic vol]Ordered By: Shailesh Dunham on 08-22-2024 Platelet mean volume (Bld) [Entitic vol] 10.2 fL 9.5-13.5 [facility] Platelets Auto (Bld) [#/Vol] Ordered By: Shailesh Dunham on 08-22-2024 Platelets (Bld) [#/Vol] 181 10 3/uL 150-450 [facility] RBC Auto (Bld) [#/Vol]Ordere d By: Shailesh Dunham on 08-22-2024 RBC (Bld) [#/Vol] 3.72 10 6/uL Low 4.70-6.[address] [facility] Serum or plasma albumin/glob ulin mass ratioOrdered By: Shailesh Dunham on 08-22-2024 Albumin/Globulin [Mass ratio] 0.7 {ratio} [facility] Serum or plasma anion gap de terminationOrdered By: Shailesh Dunham on 08-22-2024 Anion gap [Moles/Vol] 14.1 mmol/L [facility] Follow-Upon 08-15-2024 Follow-Up Normal [facility] Follow-Upon 08-10-2024 Follow-Up Normal [facility] 30on 08-06-2024 30 Normal [facility] BASIC METABOLIC PANELon 06-0 Anion gap [Moles/Vol] 9 mmol/L Normal 7-20 [facility] Comment on above: Performed By: #### L [id number] ####[facility] ([facility])[address] [place] [address] Calcium [Mass/Vol] 7.9 mg/dL Low 8.6-10.3 [facility] Comment on above: Performed By: #### L [id number] ####[facility] ([facility])[address] [place] [address] Chloride [Moles/Vol] 104 mmol/L Normal 98-107 [facility] Comment on above: Performed By: #### L [id number] ####[facility] ([facility])[address] [place] [address] CO2 [Moles/Vol] 27 mmol/L Normal 21-31 [facility] Comment on above: Performed By: #### L [id number] ####[facility] ([facility])[address] [place] [address] Creatinine [Mass/Vol] 0.55 mg/dL Low 0.70-1.30 [facility] Comment on above: Performed By: #### L [id number] ####[facility] ([facility])[address] [place] [address] GLOMERULAR FILTRATION RATE ML/MIN/1.73 SQ M.PREDICTED 98.9 mL/min/1.73m*2 Normal >60.0 [facility] Comment on above: Result Comment: [facility]???s estimated glomerular filtration rate (eGFR) will [...] individuals. Performed By: #### L [id number] ####[facility] ([facility])[address] [place] [address] Glucose [Mass/Vol] 107 mg/dL High 70-100 [facility] Comment on above: Performed By: #### L [id number] ####[facility] ([facility])[address] [place] [address] Potassium [Moles/Vol] 4.1 mmol/L Normal 3.5-5.1 [facility] Comment on above: Performed By: #### L [id number] ####[facility] ([facility])[address] [place] [address] Sodium [Moles/Vol] 136 mmol/L Normal 136-145 [facility] Comment on above: Performed By: #### L [id number] ####[facility] ([facility])[address] [place] [address] Urea nitrogen [Mass/Vol] 22 mg/dL Normal 7-25 [facility] Comment on above: Performed By: #### L [id number] ####[facility] ([facility])[address] [place] [address] UREA NITROGEN/CREATININE (MASS RATIO) IN SER/PLAS 40.0 Normal [facility] Comment on above: Performed By: #### L [id number] ####[facility] ([facility])[address] [place] [address] CBC WITH AUTO DIFFERENTIALon 08-06-2024 Basophils (Bld) [#/Vol] 0.03 10*3/uL Normal 0.00-0.20 [facility] Comment on above: Performed By: #### L [id number] ####[facility] ([facility])[address] [place] [address] Basophils/100 WBC (Bld) 0.4 % Normal 0.0-1.0 [facility] Comment on above: Performed By: #### L [id number] ####[facility] ([facility])[address] [place] [address] Eosinophils (Bld) [#/Vol] 0.15 10*3/uL Normal 0.00-0.50 [facility] Comment on above: Performed By: #### L [id number] ####[facility] ([facility])[address] [place] [address] Eosinophils/100 WBC (Bld) 1.8 % Normal 0.0-6.0 [facility] Comment on above: Performed By: #### L [id number] ####[facility] ([facility])[address] [place] [address] Erythrocyte distribution width (RBC) [Ratio] 13.0 % Normal 11.5-15.0 [facility] Comment on above: Performed By: #### L [id number] ####[facility] ([facility])[address] [place] [address] ERYTHROCYTE MEAN CORPUSCULAR HEMOGLOBIN CONCENTRATION (G/DL) BY AUTOMATED 32.1 g/dL Normal 32.0-35.0 [facility] Comment on above: Performed By: #### L [id number] ####[facility] ([facility])[address] [place] [address] Hematocrit (Bld) [Volume fraction] 28.0 % Low 39.0-50.0 [facility] Comment on above: Performed By: #### L [id number] ####[facility] ([facility])[address] [place] [address] Hemoglobin (Bld) [Mass/Vol] 9.0 g/dL Low 13.0-17.0 [facility] Comment on above: Performed By: #### L [id number] ####[facility] ([facility])[address] [place] [address] Immature granulocytes (Bld) [#/Vol] 0.04 10*3/uL Normal 0.00-0.20 [facility] Comment on above: Performed By: #### L [id number] ####[facility] ([facility])[address] [place] [address] Immature granulocytes/100 WBC (Bld) 0.5 % Normal 0.0-1.0 [facility] Comment on above: Performed By: #### L [id number] ####[facility] ([facility])[address] [place] [address] Lymphocytes (Bld) [#/Vol] 1.37 10*3/uL Normal 1.20-4.00 [facility] Comment on above: Performed By: #### L [id number] ####[facility] ([facility])[address] [place] [address] Lymphocytes/100 WBC (Bld) 16.6 % Low 20.0-45.0 [facility] Comment on above: Performed By: #### L [id number] ####[facility] ([facility])[address] [place] [address] MCH (RBC) [Entitic mass] 29.7 pg Normal 27.0-33.0 [facility] Comment on above: Performed By: #### L [id number] ####[facility] ([facility])[address] [place] [address] MCV (RBC) [Entitic vol] 92.4 fL Normal 82.0-98.0 [facility] Comment on above: Performed By: #### L [id number] ####[facility] ([facility])[address] [place] [address] Monocytes (Bld) [#/Vol] 0.92 10*3/uL Normal 0.10-1.00 [facility] Comment on above: Performed By: #### L [id number] ####[facility] ([facility])[address] [place] [address] Monocytes/100 WBC (Bld) 11.2 % Normal 5.0-12.0 [facility] Comment on above: Performed By: #### L [id number] ####[facility] ([facility])[address] [place] [address] Neutrophils (Bld) [#/Vol] 5.73 10*3/uL Normal 1.60-7.60 [facility] Comment on above: Performed By: #### L [id number] ####[facility] ([facility])[address] [place] [address] Neutrophils/100 WBC (Bld) 69.5 % Normal 40.0-72.0 [facility] Comment on above: Performed By: #### L [id number] ####[facility] ([facility])[address] [place] [address] NRBC (PER 100 WBCS) BY AUTOMATED COUNT 0.0 % Normal 0 [facility] Comment on above: Performed By: #### L [id number] ####[facility] ([facility])[address] [place] [address] PLATELETS (10*3/UL) IN BLOOD AUTOMATED COUNT 165 10*3/uL Normal 150-400 [facility] Comment on above: Performed By: #### L [id number] ####[facility] [address] RBC (Bld) [#/Vol] 3.03 10*6/uL Low 4.20-5.70 [facility] Comment on above: Performed By: #### L [id number] ####[facility] ([facility] [place] [place] [address] WBC (Bld) [#/Vol] 8.24 10*3/uL Normal 4.00-10.60 [facility] Comment on above: Performed By: #### L [id number] ####[facility] ([facility])[address] [address] DSon 08-06-2024 DS [facility] MAGNESIUMon 08-06-2024 Magnesium [Mass/Vol] 1.7 mg/dL Low 1.9-2.7 [facility] Comment on above: Performed By: #### L [id number] ####[facility] ([facility] [place] [place] [address] 30on 08-05-2024 30 Normal [facility] 30 Normal [facility] BASIC METABOLIC PANELon 05-3 Anion gap [Moles/Vol] 9 mmol/L Normal 7-20 [facility] Comment on above: Performed By: #### L [id number] ####[facility] ([facility])[address] [address] Calcium [Mass/Vol] 7.8 mg/dL Low 8.6-10.3 [facility] Comment on above: Performed By: #### L [id number] ####[facility] ([facility])[address] [place] [address] Chloride [Moles/Vol] 105 mmol/L Normal 98-107 [facility] Comment on above: Performed By: #### L [id number] ####[facility] ([facility])[address] [place] [address] CO2 [Moles/Vol] 27 mmol/L Normal 21-31 [facility] Comment on above: Performed By: #### L [id number] ####[facility] ([facility])[address] [place] [address] Creatinine [Mass/Vol] 0.49 mg/dL Low 0.70-1.30 [facility] Comment on above: Performed By: #### L [id number] ####[facility] ([facility])[address] [place] [address] GLOMERULAR FILTRATION RATE ML/MIN/1.73 SQ M.PREDICTED 102.5 mL/min/1.73m*2 Normal >60.0 [facility] Comment on above: Result Comment: [facility]???s estimated glomerular filtration rate (eGFR) will [...] individuals. Performed By: #### L [id number] ####[facility] ([facility])[address] [place] [address] Glucose [Mass/Vol] 107 mg/dL High 70-100 [facility] Comment on above: Performed By: #### L [id number] ####[facility] ([facility])[address] [place] [address] Potassium [Moles/Vol] 4.0 mmol/L Normal 3.5-5.1 [facility] Comment on above: Performed By: #### L [id number] ####[facility] ([facility])[address] [place] [address] Sodium [Moles/Vol] 137 mmol/L Normal 136-145 [facility] Comment on above: Performed By: #### L [id number] ####[facility] ([facility])[address] [place] [address] Urea nitrogen [Mass/Vol] 23 mg/dL Normal 7-25 [facility] Comment on above: Performed By: #### L [id number] ####[facility] ([facility])[address] [place] [address] UREA NITROGEN/CREATININE (MASS RATIO) IN SER/PLAS 46.9 Normal [facility] Comment on above: Performed By: #### L [id number] ####[facility] ([facility])[address] [place] [address] CBC WITH AUTO DIFFERENTIALon 08-05-2024 Basophils (Bld) [#/Vol] 0.02 10*3/uL Normal 0.00-0.20 [facility] Comment on above: Performed By: #### L [id number] ####[facility] ([facility])[address] [place] [address] Basophils/100 WBC (Bld) 0.2 % Normal 0.0-1.0 [facility] Comment on above: Performed By: #### L [id number] ####[facility] ([facility])[address] [place] [address] Eosinophils (Bld) [#/Vol] 0.09 10*3/uL Normal 0.00-0.50 [facility] Comment on above: Performed By: #### L [id number] ####[facility] ([facility])[address] [place] [address] Eosinophils/100 WBC (Bld) 1.0 % Normal 0.0-6.0 [facility] Comment on above: Performed By: #### L [id number] ####[facility] ([facility] [place] [address] Erythrocyte distribution width (RBC) [Ratio] 13.2 % Normal 11.5-15.0 [facility] Comment on above: Performed By: #### L [id number] ####[facility] ([facility])[address] [place] [address] ERYTHROCYTE MEAN CORPUSCULAR HEMOGLOBIN CONCENTRATION (G/DL) BY AUTOMATED 32.0 g/dL Normal 32.0-35.0 [facility] Comment on above: Performed By: #### L [id number] ####[facility] ([facility])[address] [place] [address] Hematocrit (Bld) [Volume fraction] 26.6 % Low 39.0-50.0 [facility] Comment on above: Performed By: #### L [id number] ####[facility] ([facility])[address] [place] [address] Hemoglobin (Bld) [Mass/Vol] 8.5 g/dL Low 13.0-17.0 [facility] Comment on above: Performed By: #### L [id number] ####[facility] ([facility])[address] [place] [address] Immature granulocytes (Bld) [#/Vol] 0.02 10*3/uL Normal 0.00-0.20 [facility] Comment on above: Performed By: #### L [id number] ####[facility] ([facility])[address] [place] [address] Immature granulocytes/100 WBC (Bld) 0.2 % Normal 0.0-1.0 [facility] Comment on above: Performed By: #### L [id number] ####[facility] ([facility])[address] [place] [address] Lymphocytes (Bld) [#/Vol] 1.29 10*3/uL Normal 1.20-4.00 [facility] Comment on above: Performed By: #### L [id number] ####[facility] ([facility])[address] [place] [address] Lymphocytes/100 WBC (Bld) 14.2 % Low 20.0-45.0 [facility] Comment on above: Performed By: #### L [id number] ####[facility] ([facility])[address] [place] [address] MCH (RBC) [Entitic mass] 29.9 pg Normal 27.0-33.0 [facility] Comment on above: Performed By: #### L [id number] ####[facility] ([facility])[address] [place] [address] MCV (RBC) [Entitic vol] 93.7 fL Normal 82.0-98.0 [facility] Comment on above: Performed By: #### L [id number] ####[facility] ([facility])[address] [place] [address] Monocytes (Bld) [#/Vol] 0.90 10*3/uL Normal 0.10-1.00 [facility] Comment on above: Performed By: #### L [id number] ####[facility] ([facility])[address] [place] [address] Monocytes/100 WBC (Bld) 9.9 % Normal 5.0-12.0 [facility] Comment on above: Performed By: #### L [id number] ####[facility] ([facility])[address] [place] [address] Neutrophils (Bld) [#/Vol] 6.75 10*3/uL Normal 1.60-7.60 [facility] Comment on above: Performed By: #### L [id number] ####[facility] ([facility])[address] [place] [address] Neutrophils/100 WBC (Bld) 74.5 % High 40.0-72.0 [facility] Comment on above: Performed By: #### L [id number] ####[facility] ([facility])[address] [place] [address] NRBC (PER 100 WBCS) BY AUTOMATED COUNT 0.0 % Normal 0 [facility] Comment on above: Performed By: #### L [id number] ####[facility] ([facility])[address] [place] [address] PLATELETS (10*3/UL) IN BLOOD AUTOMATED COUNT 142 10*3/uL Low 150-400 [facility] Comment on above: Performed By: #### L [id number] ####[facility] ([facility])[address] [place] [address] RBC (Bld) [#/Vol] 2.84 10*6/uL Low 4.20-5.70 [facility] Comment on above: Performed By: #### L [id number] ####[facility] ([facility])[address] [place] [address] WBC (Bld) [#/Vol] 9.07 10*3/uL Normal 4.00-10.60 [facility] Comment on above: Performed By: #### L [id number] ####[facility] ([facility])[address] [place] [address] OCCULT BLOOD X 1, STOOLon HEMOGLOBIN GASTROINTESTINAL PRESENCE IN STOOL Negative Normal Negative, None Detected [facility] Comment on above: Performed By: #### L [id number] ####[facility] ([facility])[address] [place], [place] [address] 30on 08-04-2024 30 Normal [facility] 30 Normal [facility] BASIC METABOLIC PANELon 053 Anion gap [Moles/Vol] 10 mmol/L Normal 7-20 [facility] Comment on above: Performed By: #### L [id number] ####[facility] ([facility])[address] [place] [address] Calcium [Mass/Vol] 8.1 mg/dL Low 8.6-10.3 [facility] Comment on above: Performed By: #### L [id number] ####[facility] ([facility])[address] [place] [address] Chloride [Moles/Vol] 104 mmol/L Normal 98-107 [facility] Comment on above: Performed By: #### L [id number] ####[facility] ([facility])[address] [place] [address] CO2 [Moles/Vol] 29 mmol/L Normal 21-31 [facility] Comment on above: Performed By: #### L [id number] ####[facility] ([facility])[address] [place] [address] Creatinine [Mass/Vol] 0.63 mg/dL Low 0.70-1.30 [facility] Comment on above: Performed By: #### L [id number] ####[facility] ([facility])[address] [place] [address] GLOMERULAR FILTRATION RATE ML/MIN/1.73 SQ M.PREDICTED 95.0 mL/min/1.73m*2 Normal >60.0 [facility] Comment on above: Result Comment: [facility]???s estimated glomerular filtration rate (eGFR) will [...] individuals. Performed By: #### L [id number] ####[facility] ([facility])[address] [place] [address] Glucose [Mass/Vol] 129 mg/dL High 70-100 [facility] Comment on above: Performed By: #### L [id number] ####[facility] ([facility])[address] [place] [address] Potassium [Moles/Vol] 3.9 mmol/L Normal 3.5-5.1 [facility] Comment on above: Performed By: #### L [id number] ####[facility] ([facility])[address] [place] [address] Sodium [Moles/Vol] 139 mmol/L Normal 136-145 [facility] Comment on above: Performed By: #### L [id number] ####[facility] ([facility])[address] [place] [address] Urea nitrogen [Mass/Vol] 24 mg/dL Normal 7-25 [facility] Comment on above: Performed By: #### L [id number] ####[facility] ([facility])[address] [place] [address] UREA NITROGEN/CREATININE (MASS RATIO) IN SER/PLAS 38.1 Normal [facility] Comment on above: Performed By: #### L [id number] ####[facility] ([facility])[address] [place] [address] MAGNESIUMon 08-04-2024 Magnesium [Mass/Vol] 1.9 mg/dL Normal 1.9-2.7 [facility] Comment on above: Performed By: #### L [id number] ####[facility] ([facility])[address] [facility] [address] 30on 08-03-2024 30 Normal [facility] 30 The patient is Moder ately Stable - Low risk of patient condition declining or worsening The patient's goals for the shift include rest/comfort The clinical goals for the shift include vss, safety Normal [facility] BLOOD CULTUREon 08-03-2024 Bacteria identified Cx Nom (Bld) No growth at 5 days Normal [facility] Comment on above: Performed By: #### L [id number] ####[facility] ([facility])[address] [place] [address] Order Comment: 2 of 2 CBC WITH AUTO DIFFERENTIALon 08-03-2024 Erythrocyte distribution width (RBC) [Ratio] 13.1 % Normal 11.5-15.0 [facility] Comment on above: Performed By: #### L [id number] ####[facility] ([facility])[address] [place] [address] ERYTHROCYTE MEAN CORPUSCULAR HEMOGLOBIN CONCENTRATION (G/DL) BY AUTOMATED 32.0 g/dL Normal 32.0-35.0 [facility] Comment on above: Performed By: #### L [id number] ####[facility] ([facility])[address] [place] [address] Hematocrit (Bld) [Volume fraction] 27.8 % Low 39.0-50.0 [facility] Comment on above: Performed By: #### L [id number] ####[facility] ([facility])[address] [place] [address] Hemoglobin (Bld) [Mass/Vol] 8.9 g/dL Low 13.0-17.0 [facility] Comment on above: Performed By: #### L [id number] ####[facility] ([facility])[address] [place] [address] MCH (RBC) [Entitic mass] 30.0 pg Normal 27.0-33.0 [facility] Comment on above: Performed By: #### L [id number] ####[facility] ([facility])[address] [place] [address] MCV (RBC) [Entitic vol] 93.6 fL Normal 82.0-98.0 [facility] Comment on above: Performed By: #### L [id number] ####[facility] ([facility])[address] [place] [address] NRBC (PER 100 WBCS) BY AUTOMATED COUNT 0.0 % Normal 0 [facility] Comment on above: Performed By: #### L [id number] ####[facility] ([facility])[address] [place] [address] PLATELETS (10*3/UL) IN BLOOD AUTOMATED COUNT 149 10*3/uL Low 150-400 [facility] Comment on above: Performed By: #### L [id number] ####[facility] ([facility])[address] [place] [address] RBC (Bld) [#/Vol] 2.97 10*6/uL Low 4.20-5.70 [facility] Comment on above: Performed By: #### L [id number] ####[facility] ([facility])[address] [place] [address] WBC (Bld) [#/Vol] 14.09 10*3/uL High 4.00-10.60 [facility] Comment on above: Performed By: #### L [id number] ####[facility] ([facility])[address] [place] [address] HPon 08-03-2024 HP Normal [facility] LIPID PANELon 08-03-2024 CHOL/HDL 3.7 mg/dL [facility] Comment on above: Performed By: #### L [id number] ####[facility] ([facility])[address] [place] [address] Cholesterol [Mass/Vol] 86 mg/dL Low 120-200 [facility] Comment on above: Performed By: #### L [id number] ####[facility] ([facility] [facility] [address] Magnesium [Mass/Vol] 165 mg/dL High <150 [facility] Comment on above: Result Comment: TRIG LYCERIDE REFERENCE RANGE:20 YEARS AND OLDER CARDIOVASCULAR RISKLESS THAN 150 mg/dL LOW [id number] TO 199 mg/dL BORDERLINE [id number] mg/dL AND GREATER HIGH RISK Performed By: #### L [id number] ####[facility] ([facility])[address] [place] [address] Magnesium [Mass/Vol] 30 mg/dL Normal 0-160 [facility] Comment on above: Performed By: #### L [id number] ####[facility] ([facility])[address] [place] [address] Magnesium [Mass/Vol] 23 mg/dL Normal 23-92 [facility] Comment on above: Performed By: #### L [id number] ####[facility] ([facility])[address] [place] [address] NON HDL CHOL. (LDL+VLDL) 63 Normal [facility] Comment on above: Performed By: #### L [id number] ####[facility] ([facility])[address] [place] [address] TOTAL VLDL-C 33 mg/dL Normal 0-40 [facility] Comment on above: Performed By: #### L [id number] ####[facility] ([facility])[address] [place] [address] MANUAL DIFFERENTIALon 2024 BASOPHILS (10*3/UL) IN BLOOD BY CALCULATION 0.01 10*3/uL Normal 0.00-0.20 [facility] Comment on above: Performed By: #### L [id number] ####[facility] ([facility])[address] [place] [address] BASOPHILS/100 LEUKOCYTES IN BLOOD BY AUTOMATED COUNT 0.1 % Normal 0.0-1.0 [facility] Comment on above: Performed By: #### L [id number] ####[facility] ([facility])[address] [place] [address] EOSINOPHILS (10*3/UL) IN BLOOD BY CALCULATION 0.00 10*3/uL Normal 0.00-0.50 [facility] Comment on above: Performed By: #### L [id number] ####[facility] ([facility])[address] [place] [address] EOSINOPHILS/100 LEUKOCYTES IN BLOOD BY AUTOMATED COUNT 0.0 % Normal 0.0-6.0 [facility] Comment on above: Performed By: #### L [id number] ####[facility] ([facility])[address] [place] [address] IMMATURE GRANULOCYTES (10*3/UL) IN BLOOD BY CALCULATION 0.11 10*3/uL Normal 0.00-0.20 [facility] Comment on above: Performed By: #### L [id number] ####[facility] ([facility])[address] [place] [address] IMMATURE GRANULOCYTES/100 LEUKOCYTES IN BLOOD BY AUTOMATED COUNT 0.8 % Normal 0.0-1.0 [facility] Comment on above: Performed By: #### L [id number] ####[facility] ([facility])[address] [place] [address] LYMPHOCYTES (10*3/UL) IN BLOOD BY CALCULATION 1.06 10*3/uL Low 1.20-4.00 [facility] Comment on above: Performed By: #### L [id number] ####[facility] ([facility])[address] [place] [address] LYMPHOCYTES/100 LEUKOCYTES IN BLOOD BY AUTOMATED COUNT 7.5 % Low 20.0-45.0 [facility] Comment on above: Performed By: #### L [id number] ####[facility] ([facility])[address] [place] [address] MONOCYTES (10*3/UL) IN BLOOD BY CALCUATION 1.68 10*3/uL High 0.10-1.00 [facility] Comment on above: Performed By: #### L [id number] ####[facility] ([facility])[address] [place] [address] MONOCYTES/100 LEUKOCYTES IN BLOOD BY AUTOMATED COUNT 11.9 % Normal 5.0-12.0 [facility] Comment on above: Performed By: #### L [id number] ####[facility] ([facility])[address] [place] [address] NEUTROPHILS (10*3/UL) IN BLOOD BY CALCULATION 11.2 10*3/uL High 1.6-7.6 [facility] Comment on above: Performed By: #### L [id number] ####[facility] ([facility])[address] [place] [address] NEUTROPHILS/100 LEUKOCYTES IN BLOOD BY AUTOMATED COUNT 79.7 % High 40.0-72.0 [facility] Comment on above: Performed By: #### L [id number] ####[facility] ([facility])[address] [place] [address] NURSNOTEon 08-03-2024 NURSNOTE Normal [facility] NURSNOTE Normal [facility] URINALYSIS MICROSCOPIC WITH REFLEX CULTUREon 08-03-2024 MUCUS (#/LPF) IN URINE SEDIMENT Occasional Normal None Seen, Occasional , Few [facility] Comment on above: Performed By: #### L [id number] ####[facility] ([facility])[address] [place] [address] RBC (#/HPF) IN URINE SEDIMENT >20 Abnormal None Seen, 0-2 [facility] Comment on above: Performed By: #### L [id number] ####[facility] ([facility])[address] [place] [address] SQUAMOUS EPITHELIAL CELLS (#/LPF) IN URINE SEDIMENT Occasional Normal None Seen, Occasional , Few [facility] Comment on above: Performed By: #### L [id number] ####[facility] ([facility])[address] [place] [address] WBC (LEUKOCYTE) (#/HPF) IN URINE SEDIMENT 11-20 Abnormal None Seen, 0-2 [facility] Comment on above: Performed By: #### L [id number] ####[facility] ([facility])[address] [place] [address] URINALYSIS WITH REFLEX CULTU REon 08-03-2024 BILIRUBIN, TOTAL PRESENCE IN URINE Negative Normal Negative [facility] Comment on above: Performed By: #### L [id number] ####[facility] ([facility])[address] [place] [address] Clarity (U) Clear Normal Clear [facility] Comment on above: Performed By: #### L [id number] ####[facility] ([facility])[address] [place] [address] Color (U) Yellow Normal Colorless, Yellow, Light-[place] ow [facility] Comment on above: Performed By: #### L [id number] ####[facility] ([facility])[address] [place] [address] GLUCOSE (MG/DL) IN URINE Normal Normal Normal [facility] Comment on above: Performed By: #### L [id number] ####[facility] ([facility])[address] [place] [address] HEMOGLOBIN PRESENCE IN URINE Large Abnormal Negative [facility] Comment on above: Performed By: #### L [id number] ####[facility] ([facility])[address] [place] [address] Ketones Ql (U) Negative Normal Negative [facility] Comment on above: Performed By: #### L [id number] ####[facility] ([facility])[address] [place] [address] LEUKOCYTE ESTERASE PRESENCE IN URINE BY TEST STRIP Moderate Abnormal Negative [facility] Comment on above: Performed By: #### L [id number] ####[facility] ([facility])[address] [place] [address] NITRITE PRESENCE IN URINE Negative Normal Negative [facility] Comment on above: Performed By: #### L [id number] ####[facility] ([facility])[address] [place] [address] pH (U) 5.5 [pH] Normal 5.0-8.0 [facility] Comment on above: Performed By: #### L [id number] ####[facility] ([facility])[address] [place] [address] Protein (U) [Mass/Vol] Negative Normal [facility] above: Performed By: #### L [id number] ####[facility] ([facility])[address] [place] [address] Specific gravity (U) [Rel density] 1.030 Normal 1.010-1.03 0 [facility] Comment on above: Performed By: #### L [id number] ####[facility] ([facility])[address] [place] [address] UROBILINOGEN (MG/DL) IN URINE Normal Normal Normal [facility] Comment on above: Performed By: #### L [id number] ####[facility] ([facility])[address] [place] [address] URINE CULTURE, ROUTINEon Bacteria identified Cx Nom (U) No growth at 48 hours Normal [facility] Comment on above: Performed By: #### L [id number] ####[facility] ([facility] [place] [address] 30on 08-02-2024 30 Normal [facility] 30 Normal [facility] 30 Normal [facility] BASIC METABOLIC PANELon 07-07 Anion gap [Moles/Vol] 9 mmol/L Normal 7-20 [facility] Comment on above: Performed By: #### L [id number] ####[facility] ([facility])[address] [place] [address] Calcium [Mass/Vol] 7.8 mg/dL Low 8.6-10.3 [facility] Comment on above: Performed By: #### L [id number] ####[facility] ([facility])[address] [place] [address] Chloride [Moles/Vol] 105 mmol/L Normal 98-107 [facility] Comment on above: Performed By: #### L [id number] ####[facility] ([facility])[address] [place] [address] CO2 [Moles/Vol] 26 mmol/L Normal 21-31 [facility] Comment on above: Performed By: #### L [id number] ####[facility] ([facility])[address] [place] [address] Creatinine [Mass/Vol] 0.96 mg/dL Normal 0.70-1.30 [facility] Comment on above: Performed By: #### L [id number] ####[facility] ([facility])[address] [place] [address] GLOMERULAR FILTRATION RATE ML/MIN/1.73 SQ M.PREDICTED 78.9 mL/min/1.73m*2 Normal >60.0 [facility] Comment on above: Result Comment: [facility]???s estimated glomerular filtration rate (eGFR) will [...] individuals. Performed By: #### L [id number] ####[facility] ([facility])[address] [place] [address] Glucose [Mass/Vol] 135 mg/dL High 70-100 [facility] Comment on above: Performed By: #### L [id number] ####[facility] ([facility] [place] [address] Potassium [Moles/Vol] 4.3 mmol/L Normal 3.5-5.1 [facility] Comment on above: Performed By: #### L [id number] ####[facility] [place] [address] Sodium [Moles/Vol] 136 mmol/L Normal 136-145 [facility] Comment on above: Performed By: #### L [id number] ####[facility] ([facility] [place] [address] Urea nitrogen [Mass/Vol] 24 mg/dL Normal 7-25 [facility] Comment on above: Performed By: #### L [id number] ####[facility] ([facility])[address] [place] [address] UREA NITROGEN/CREATININE (MASS RATIO) IN SER/PLAS 25.0 Normal [facility] Comment on above: Performed By: #### L [id number] ####[facility] ([facility] [place])[address] [place] [address] CBCon 08-02-2024 Erythrocyte distribution width (RBC) [Ratio] 13.1 % Normal 11.5-15.0 [facility] Comment on above: Performed By: #### L [id number] ####[facility] ([facility])[address] [place] [address] ERYTHROCYTE MEAN CORPUSCULAR HEMOGLOBIN CONCENTRATION (G/DL) BY AUTOMATED 32.1 g/dL Normal 32.0-35.0 [facility] Comment on above: Performed By: #### L [id number] ####[facility] ([facility])[address] [place] [address] Hematocrit (Bld) [Volume fraction] 27.1 % Low 39.0-50.0 [facility] Comment on above: Performed By: #### L [id number] ####[facility] ([facility])[address] [address] Hemoglobin (Bld) [Mass/Vol] 8.7 g/dL Low 13.0-17.0 [facility] Comment on above: Performed By: #### L [id number] ####[facility] ([facility])[address] [place] [address] MCH (RBC) [Entitic mass] 29.8 pg Normal 27.0-33.0 [facility] Comment on above: Performed By: #### L [id number] ####[facility] ([facility])[address] [place] [address] MCV (RBC) [Entitic vol] 92.8 fL Normal 82.0-98.0 [facility] Comment on above: Performed By: #### L [id number] ####[facility] ([facility])[address] [place] [address] PLATELETS (10*3/UL) IN BLOOD AUTOMATED COUNT 195 10*3/uL Normal 150-400 [facility] Comment on above: Performed By: #### L [id number] ####[facility] ([facility])[address] [place] [address] RBC (Bld) [#/Vol] 2.92 10*6/uL Low 4.20-5.70 [facility] Comment on above: Performed By: #### L [id number] ####[facility] ([facility] [place] [place] [address] WBC (Bld) [#/Vol] 22.16 10*3/uL High 4.00-10.60 [facility] Comment on above: Performed By: #### L [id number] ####[facility] ([facility] [place] [place] [address] Erythrocyte distribution width (RBC) [Ratio] 12.9 % Normal 11.5-15.0 [facility] Comment on above: Performed By: #### L [id number] ####[facility] ([facility])[address] [place] [address] ERYTHROCYTE MEAN CORPUSCULAR HEMOGLOBIN CONCENTRATION (G/DL) BY AUTOMATED 33.1 g/dL Normal 32.0-35.0 [facility] Comment on above: Performed By: #### L [id number] ####[facility] ([facility])[address] [place] [address] Hematocrit (Bld) [Volume fraction] 27.2 % Low 39.0-50.0 [facility] Comment on above: Performed By: #### L [id number] ####[facility] ([facility])[address] [place] [address] Hemoglobin (Bld) [Mass/Vol] 9.0 g/dL Low 13.0-17.0 [facility] Comment on above: Performed By: #### L [id number] ####[facility] ([facility])[address] [place] [address] MCH (RBC) [Entitic mass] 30.2 pg Normal 27.0-33.0 [facility] Comment on above: Performed By: #### L [id number] ####[facility] ([facility] [place] [place] [address] Performed By: #### L [id number] ####[facility] ([facility])[address] [place] [address] MCV (RBC) [Entitic vol] 91.3 fL Normal 82.0-98.0 [facility] Comment on above: Performed By: #### L [id number] ####[facility] ([facility] [place] [place] [address] PLATELETS (10*3/UL) IN BLOOD AUTOMATED COUNT 193 10*3/uL Normal 150-400 [facility] Comment on above: Performed By: #### L [id number] ####[facility] ([facility])[address] [place] [address] RBC (Bld) [#/Vol] 2.98 10*6/uL Low 4.20-5.70 [facility] Comment on above: Performed By: #### L [id number] ####[facility] ([facility])[address] [place] [address] WBC (Bld) [#/Vol] 25.71 10*3/uL High 4.00-10.60 [facility] Comment on above: Performed By: #### L [id number] ####[facility] ([facility])[address] [place] [address] FL ESOPHAGUS BARIUM SWALLOW WITH VIDEO AND SPEECHon 08-02-2024 FL ESOPHAGUS BARIUM SWALLOW WITH VIDEO AND SPEECH Normal [facility] NURSNOTEon 08-02-2024 NURSNOTE Normal [facility] ANESon 08-01-2024 ANES Normal [facility] ANES Normal [facility] APTTon 08-01-2024 ACTIVATED PARTIAL THROMBOPLASTIN TIME IN PPP BY COAGULATION ASSAY 40.3 Seconds High 25.0-35.0 [facility] Comment on above: Result Comment: Clin ical significance of the APTT is questionable in the presence of heparin. 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 Performed By: #### L [id number] ####[facility] RESPIRATORY [id number] [place] [address] [facility] CO2 (Bld) [Partial pressure] 34 mm[Hg] Low 35-48 [facility] Comment on above: 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 Performed By: #### L [id number] ####[facility] RESPIRATORY [id number] [place] [address] [facility] HCO3 (Bld) [Moles/Vol] 24.2 mmol/L Normal 21.0-28.0 [facility] Comment on above: 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 Performed By: #### L [id number] ####[facility] RESPIRATORY [id number] [place] [address] [facility] Oxygen (Bld) [Partial pressure] 300 mm[Hg] High 83-100 [facility] Comment on above: 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 Performed By: #### L [id number] ####[facility] RESPIRATORY [id number] [place] [address] [facility] OXYGEN SATURATION (%) IN ARTERIAL BLOOD 98.9 % High 94.0-98.0 [facility] Comment on above: 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 Performed By: #### L [id number] ####[facility] RESPIRATORY [id number] [place] [address] [facility] pH (Bld) 7.46 [pH] High 7.35-7.45 [facility] Comment on above: 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 Performed By: #### L [id number] ####[facility] RESPIRATORY [id number] [place] [address] [facility] SOURCE OF OXYGEN Vent Normal [facility] Comment on above: 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 Performed By: #### L [id number] ####[facility] RESPIRATORY [id number] [place] [address] [facility] BASIC METABOLIC PANELon 05-2 Anion gap [Moles/Vol] 10 mmol/L Normal 7-20 [facility] Comment on above: Performed By: #### L [id number] ####[facility] ([facility] [place])[address] [place] [address] Calcium [Mass/Vol] 7.8 mg/dL Low 8.6-10.3 [facility] Comment on above: Performed By: #### L [id number] ####[facility] ([facility] [place])[address] [place] [address] Chloride [Moles/Vol] 106 mmol/L Normal 98-107 [facility] Comment on above: Performed By: #### L [id number] ####[facility] ([facility])[address] [place] [address] CO2 [Moles/Vol] 24 mmol/L Normal 21-31 [facility] Comment on above: Performed By: #### L [id number] ####[facility] ([facility])[address] [place] [address] Creatinine [Mass/Vol] 0.63 mg/dL Low 0.70-1.30 [facility] Comment on above: Performed By: #### L [id number] ####[facility] ([facility])[address] [place] [address] GLOMERULAR FILTRATION RATE ML/MIN/1.73 SQ M.PREDICTED 95.0 mL/min/1.73m*2 Normal >60.0 [facility] Comment on above: Result Comment: [facility]???s estimated glomerular filtration rate (eGFR) will [...] individuals. Performed By: #### L [id number] ####[facility] ([facility])[address] [place] [address] Glucose [Mass/Vol] 160 mg/dL High 70-100 [facility] Comment on above: Performed By: #### L [id number] ####[facility] ([facility] [place] [place] [address] Potassium [Moles/Vol] 4.1 mmol/L Normal 3.5-5.1 [facility] Comment on above: Performed By: #### L [id number] ####[facility] ([facility])[address] [place] [address] Sodium [Moles/Vol] 136 mmol/L Normal 136-145 [facility] Comment on above: Performed By: #### L [id number] ####[facility] ([facility])[address] [place] [address] Urea nitrogen [Mass/Vol] 16 mg/dL Normal 7-25 [facility] Comment on above: Performed By: #### L [id number] ####[facility] ([facility])[address] [place] [address] UREA NITROGEN/CREATININE (MASS RATIO) IN SER/PLAS 25.4 Normal [facility] Comment on above: Performed By: #### L [id number] ####[facility] ([facility])[address] [place] [address] CBC WITH AUTO DIFFERENTIALon 08-01-2024 Basophils (Bld) [#/Vol] 0.01 10*3/uL Normal 0.00-0.20 [facility] Comment on above: Performed By: #### L [id number] ####[facility] ([facility])[address] [place] [address] Basophils/100 WBC (Bld) 0.1 % Normal 0.0-1.0 [facility] Comment on above: Performed By: #### L [id number] ####[facility] ([facility] [place] [place] [address] Eosinophils (Bld) [#/Vol] 0.00 10*3/uL Normal 0.00-0.50 [facility] Comment on above: Performed By: #### L [id number] ####[facility] ([facility])[address] [place] [address] Eosinophils/100 WBC (Bld) 0.0 % Normal 0.0-6.0 [facility] Comment on above: Performed By: #### L [id number] ####[facility] ([facility])[address] [place] [address] Erythrocyte distribution width (RBC) [Ratio] 12.8 % Normal 11.5-15.0 [facility] Comment on above: Performed By: #### L [id number] ####[facility] ([facility])[address] [place] [address] ERYTHROCYTE MEAN CORPUSCULAR HEMOGLOBIN CONCENTRATION (G/DL) BY AUTOMATED 32.8 g/dL Normal 32.0-35.0 [facility] Comment on above: Performed By: #### L [id number] ####[facility] ([facility])[address] [place] [address] Hematocrit (Bld) [Volume fraction] 28.7 % Low 39.0-50.0 [facility] Comment on above: Performed By: #### L [id number] ####[facility] ([facility])[address] [place] [address] Hemoglobin (Bld) [Mass/Vol] 9.4 g/dL Low 13.0-17.0 [facility] Comment on above: Performed By: #### L [id number] ####[facility] ([facility] [place] [place] [address] Immature granulocytes (Bld) [#/Vol] 0.21 10*3/uL High 0.00-0.20 [facility] Comment on above: Performed By: #### L [id number] ####[facility] ([facility])[address] [place] [address] Immature granulocytes/100 WBC (Bld) 2.1 % High 0.0-1.0 [facility] Comment on above: Performed By: #### L [id number] ####[facility] ([facility])[address] [place] [address] Lymphocytes (Bld) [#/Vol] 0.68 10*3/uL Low 1.20-4.00 [facility] Comment on above: Performed By: #### L [id number] ####[facility] ([facility])[address] [place] [address] Lymphocytes/100 WBC (Bld) 6.9 % Low 20.0-45.0 [facility] Comment on above: Performed By: #### L [id number] ####[facility] ([facility])[address] [place] [address] MCV (RBC) [Entitic vol] 92.3 fL Normal 82.0-98.0 [facility] Comment on above: Performed By: #### L [id number] ####[facility] ([facility])[address] [place] [address] Monocytes (Bld) [#/Vol] 0.57 10*3/uL Normal 0.10-1.00 [facility] Comment on above: Performed By: #### L [id number] ####[facility] ([facility])[address] [place] [address] Monocytes/100 WBC (Bld) 5.7 % Normal 5.0-12.0 [facility] Comment on above: Performed By: #### L [id number] ####[facility] ([facility])[address] [place] [address] Neutrophils (Bld) [#/Vol] 8.45 10*3/uL High 1.60-7.60 [facility] Comment on above: Performed By: #### L [id number] ####[facility] ([facility])[address] [place] [address] Neutrophils/100 WBC (Bld) 85.2 % High 40.0-72.0 [facility] Comment on above: Performed By: #### L [id number] ####[facility] ([facility])[address] [place] [address] NRBC (PER 100 WBCS) BY AUTOMATED COUNT 0.0 % Normal 0 [facility] Comment on above: Performed By: #### L [id number] ####[facility] ([facility])[address] [place] [address] PLATELETS (10*3/UL) IN BLOOD AUTOMATED COUNT 161 10*3/uL Normal 150-400 [facility] Comment on above: Performed By: #### L [id number] ####[facility] ([facility])[address] [place] [address] RBC (Bld) [#/Vol] 3.11 10*6/uL Low 4.20-5.70 [facility] Comment on above: Performed By: #### L [id number] ####[facility] ([facility])[address] [place] [address] WBC (Bld) [#/Vol] 9.92 10*3/uL Normal 4.00-10.60 [facility] Comment on above: Performed By: #### L [id number] ####[facility] ([facility])[address] [place] [address] HPon 08-01-2024 HP H&P reviewed. The cora cee was examined and there are no changes to the H&P. [facility] MAGNESIUMon 08-01-2024 Magnesium [Mass/Vol] 1.7 mg/dL Low 1.9-2.7 [facility] Comment on above: Performed By: #### L [id number] ####[facility] ([facility])[address] [address] OPNOTEon 08-01-2024 OPNOTE Normal [facility] PHOSPHORUSon 08-01-2024 Magnesium [Mass/Vol] 3.5 mg/dL Normal 2.5-5.0 [facility] Comment on above: Performed By: #### L [id number] ####[facility] ([facility])[address] [place] [address] POCT GLUCOSE METER UNSOLICIT ED RESULTSon 08-01-2024 Glucose [Mass/Vol] 174 mg/dL High 70-105 [facility] Comment on above: Order Comment: Waive d Testing in the ED is performed under the ED CLIA certificate #[id number]. Result Comment: [email or web address] Performed By: #### L [id number] ####[facility] ([facility])[address] [place] [address] [place] [address] Glucose [Mass/Vol] 166 mg/dL High 70-105 [facility] Comment on above: Order Comment: Waive d Testing in the ED is performed under the ED CLIA certificate #[id number]. Result Comment: [email or web address] Performed By: #### L [id number] ####[facility] ([facility])[address] [place] [address] PROTIME-INRon 08-01-2024 INR IN PPP BY COAGULATION ASSAY 1.35 High 0.90-1.10 [facility] Comment on above: Result Comment: ACCC [...] 1995;[id number]. Performed By: #### L [id number] ####[facility] ([facility])[address] [place] [address] [place] [address] PROTHROMBIN TIME (PT) IN PPP BY COAGULATION ASSAY 16.6 Seconds High 12.3-14.8 [facility] Comment on above: Performed By: #### L [id number] ####[facility] (BEAKER)[address] [place] [address] TYPE AND SCREENon 08-01-2024 AB SCREEN Negative Normal [facility] Comment on above: Performed By: #### L [id number] ####[facility] BLOOD BANK, ABO group Nom (Bld) A [facility] Comment on above: Performed By: #### L [id number] ####[facility] BLOOD BANK, RH TYPE IN BLOOD Positive Normal [facility] Comment on above: Performed By: #### L [id number] ####[facility] BLOOD BANK, Orders Onlyon 07-27-2024 Orders Only Normal [facility] Orders Onlyon 07-26-2024 Orders Only Normal [facility] Basophils Auto (Bld) [#/Vol] on 07-18-2024 Basophils (Bld) [#/Vol] Automated basophil count 0.0-0.1 [facility] Basophils (Bld) [#/Vol] 0.0 10 3/uL 0.0-0.1 [facility] Basophils/100 WBC Auto (Bld) on 07-18-2024 Basophils/100 WBC (Bld) Automated basophil % 0.2-2.0 [facility] Basophils/100 WBC (Bld) 0.5 % 0.2-2.0 [facility] Eosinophils/100 WBC Auto (Bl d)on 07-18-2024 Eosinophils/100 WBC (Bld) Automated eosinophil % 0.9-7.0 [facility] Eosinophils/100 WBC (Bld) 1.8 % 0.9-7.0 [facility] Erythrocyte distribution wid th Auto (RBC) [Ratio]on 07-18-2024 Erythrocyte distribution width (RBC) [Ratio] Erythrocyte distribution width [Ratio] by Automated count 11.0-15.0 [facility] Erythrocyte distribution width (RBC) [Ratio] 13.2 % 11.0-15.0 [facility] Estimated glomerular filtrat ion rate (GFR) non- Americanon 07-18-2024 GFR/1.73 sq M.predicted among non-blacks MDRD (S/P/Bld) [Vol rate/Area] Estimated glomerular filtration rate (GFR) non- >=60 mL/min/1.7 3m 2 [facility] GFR/1.73 sq M.predicted among non-blacks MDRD (S/P/Bld) [Vol rate/Area] mL/min/{1.73_m2} >=60 mL/min/1.7 3m 2 [facility] Hematocrit Auto (Bld) [Volum e fraction]on 07-18-2024 Hematocrit (Bld) [Volume fraction] Hematocrit [Volume Fraction] of Blood by Automated count Low 42.0-54.0 [facility] Hematocrit (Bld) [Volume fraction] 34.5 % Low 42.0-54.0 [facility] Hemoglobin [Mass/volume] in Bloodon 07-18-2024 Hemoglobin (Bld) [Mass/Vol] Hemoglobin [Mass/volume] in Blood Low 14.0-18.0 [facility] Hemoglobin (Bld) [Mass/Vol] 11.1 g/dL Low 14.0-18.0 [facility] Laboratory - Chemistry and C hemistry - challengeon 07-18-2024 Calcium [Mass/Vol] 8.9 mg/dL 8.5-10.1 [facility] Chloride [Moles/Vol] 103 mmol/L 98-107 [facility] CO2 [Moles/Vol] 29.3 mmol/L 21.0-32.0 [facility] Creatinine [Mass/Vol] 1.00 mg/dL 0.70-1.30 [facility] GFR/1.73 sq M.predicted MDRD (S/P/Bld) [Vol rate/Area] mL/min/{1.73_m2} >=60 mL/min/1.7 3m 2 [facility] Glucose [Mass/Vol] 129 mg/dL High 74-106 [facility] Potassium [Moles/Vol] 4.4 mmol/L 3.5-5.1 [facility] Sodium [Moles/Vol] 138 mmol/L 136-145 [facility] Urea nitrogen [Mass/Vol] 18.0 mg/dL 7.0-18.0 [facility] Urea nitrogen/Creatinine [Mass ratio] 18.0 mg/mg [facility] Laboratory - Hematology and Cell countson 07-18-2024 Immature granulocytes/100 WBC (Bld) 0.3 % 0.0-0.5 [facility] Leukocytes [#/volume] correc shyann for nucleated erythrocytes in Blood by Automated counon 07-18-2024 WBC corrected for nucl RBC Auto (Bld) [#/Vol] Leukocytes [#/volume] corrected for nucleated erythrocytes in Blood by Automated coun 4.0-11.0 [facility] WBC corrected for nucl RBC Auto (Bld) [#/Vol] 7.8 10 3/uL 4.0-11.0 [facility] Lymphocytes Auto (Bld) [#/Vo l]on 07-18-2024 Lymphocytes (Bld) [#/Vol] Lymphocytes [#/volume] in Blood by Automated count 1.2-3.8 [facility] Lymphocytes (Bld) [#/Vol] 1.3 10 3/uL 1.2-3.8 [facility] Lymphocytes/100 WBC Auto (Bl d)on 07-18-2024 Lymphocytes/100 WBC (Bld) Lymphocytes/100 leukocytes in Blood by Automated count Low 20.5-60.0 [facility] Lymphocytes/100 WBC (Bld) 16.8 % Low 20.5-60.0 [facility] MCH Auto (RBC) [Entitic mass ]on 07-18-2024 MCH (RBC) [Entitic mass] MCH [Entitic mass] by Automated count 25.9-34.0 [facility] MCH (RBC) [Entitic mass] 30.3 pg 25.9-34.0 [facility] MCHC Auto (RBC) [Mass/Vol]on 07-18-2024 MCHC (RBC) [Mass/Vol] MCHC [Mass/volume] by Automated count 29.9-35.2 [facility] MCHC (RBC) [Mass/Vol] 32.2 g/dL 29.9-35.2 [facility] MCV Auto (RBC) [Entitic vol] on 07-18-2024 MCV (RBC) [Entitic vol] MCV [Entitic volume] by Automated count High 80.0-94.0 [facility] MCV (RBC) [Entitic vol] 94.3 fL High 80.0-94.0 [facility] Monocytes Auto (Bld) [#/Vol] on 07-18-2024 Monocytes (Bld) [#/Vol] Automated blood monocyte count High 0.3-0.8 [facility] Monocytes (Bld) [#/Vol] 1.0 10 3/uL High 0.3-0.8 [facility] Monocytes/100 WBC Auto (Bld) on 07-18-2024 Monocytes/100 WBC (Bld) Automated monocyte % High 1.7-12.0 [facility] Monocytes/100 WBC (Bld) 12.1 % High 1.7-12.0 [facility] Neutrophils Auto (Bld) [#/Vo l]on 07-18-2024 Neutrophils (Bld) [#/Vol] Neutrophils [#/volume] in Blood by Automated count 1.4-6.5 [facility] Neutrophils (Bld) [#/Vol] 5.4 10 3/uL 1.4-6.5 [facility] Neutrophils/100 WBC Auto (Bl d)on 07-18-2024 Neutrophils/100 WBC (Bld) Automated neutrophil % 43.0-75.0 [facility] Neutrophils/100 WBC (Bld) 68.5 % 43.0-75.0 [facility] No Panel Informationon 07-18 Eosinophils # (Auto) 0.1 10 3/uL 0.0-0.7 [facility] Immature Granulocyte # (Auto) 0.02 10 3/uL 0.00-0.03 [facility] Platelet mean volume Auto (B ld) [Entitic vol]on 07-18-2024 Platelet mean volume (Bld) [Entitic vol] Platelet mean volume [Entitic volume] in Blood by Automated count 9.5-13. [facility] Platelet mean volume (Bld) [Entitic vol] 10.0 fL 9.5-13. [facility] Platelets Auto (Bld) [#/Vol] on 07-18-2024 Platelets (Bld) [#/Vol] Platelets [#/volume] in Blood by Automated count 150-450 [facility] Platelets (d) [#/Vol] 158 10 3/uL 150-450 [facility] RBC Auto (Bld) [#/Vol]on RBC (Bld) [#/Vol] Erythrocytes [#/volu me] in Blood by Automated count Low 4.70-6.10 [facility] RBC (Bld) [#/Vol] 3.66 10 6/uL Low 4.70-6.[address] [facility] Serum or plasma anion gap de terminationon 07-18-2024 Anion gap [Moles/Vol] Serum or plasma an ion gap determination [facility] Anion gap [Moles/Vol] 10.1 mmol/L [facility] HPon 07-10-2024 HP Normal [facility] Orders Onlyon 07-04-2024 Orders Only Normal [facility] BASIC METABOLIC PANELon - Anion gap [Moles/Vol] 9 mmol/L Normal 7-20 [facility] Comment on above: Performed By: #### L [id number] ####[facility] (BE[facility])[address] [place] [address] Calcium [Mass/Vol] 7.8 mg/dL Low 8.6-10.3 [facility] Comment on above: Performed By: #### L [id number] ####[facility] (BEAKER)[address] [place] [address] Chloride [Moles/Vol] 103 mmol/L Normal 98-107 [facility] Comment on above: Performed By: #### L [id number] ####[facility] ([facility])[address] [place] [address] CO2 [Moles/Vol] 24 mmol/L Normal 21-31 [facility] Comment on above: Performed By: #### L [id number] ####[facility] ([facility])[address] [place] [address] Creatinine [Mass/Vol] 0.73 mg/dL Normal 0.70-1.30 [facility] Comment on above: Performed By: #### L [id number] ####[facility] ([facility] [facility] [place] [address] GLOMERULAR FILTRATION RATE ML/MIN/1.73 SQ M.PREDICTED 90.8 mL/min/1.73m*2 Normal >60.0 [facility] Comment on above: Result Comment: [facility]???s estimated glomerular filtration rate (eGFR) will [...] individuals. Performed By: #### L [id number] ####[facility] ([facility])[address] [place] [address] Glucose [Mass/Vol] 93 mg/dL Normal 70-100 [facility] Comment on above: Performed By: #### L [id number] ####[facility] ([facility])[address] [place] [address] Potassium [Moles/Vol] 3.9 mmol/L Normal 3.5-5.1 [facility] Comment on above: Performed By: #### L [id number] ####[facility] ([facility])[address] [place] [address] Sodium [Moles/Vol] 132 mmol/L Low 136-145 [facility] Comment on above: Performed By: #### L [id number] ####[facility] ([facility])[address] [place] [address] Urea nitrogen [Mass/Vol] 22 mg/dL Normal 7-25 [facility] Comment on above: Performed By: #### L [id number] ####[facility] ([facility])[address] [place] [address] UREA NITROGEN/CREATININE (MASS RATIO) IN SER/PLAS 30.1 Normal [facility] Comment on above: Performed By: #### L [id number] ####[facility] ([facility])[address] [place] [address] CBCon 06-30-2024 Erythrocyte distribution width (RBC) [Ratio] 12.7 % Normal 11.5-15.0 [facility] Comment on above: Performed By: #### L [id number] ####[facility] ([facility])[address] [place] [address] ERYTHROCYTE MEAN CORPUSCULAR HEMOGLOBIN CONCENTRATION (G/DL) BY AUTOMATED 32.1 g/dL Normal 32.0-35.0 [facility] Comment on above: Performed By: #### L [id number] ####[facility] ([facility])[address] [place] [address] Hematocrit (Bld) [Volume fraction] 29.0 % Low 39.0-50.0 [facility] Comment on above: Performed By: #### L [id number] ####[facility] ([facility])[address] [place] [address] Hemoglobin (Bld) [Mass/Vol] 9.3 g/dL Low 13.0-17.0 [facility] Comment on above: Performed By: #### L [id number] ####[facility] ([facility])[address] [place] [address] MCH (RBC) [Entitic mass] 29.9 pg Normal 27.0-33.0 [facility] Comment on above: Performed By: #### L [id number] ####[facility] ([facility])[address] [place] [address] MCV (RBC) [Entitic vol] 93.2 fL Normal 82.0-98.0 [facility] Comment on above: Performed By: #### L [id number] ####[facility] ([facility])[address] [address] PLATELETS (10*3/UL) IN BLOOD AUTOMATED COUNT 161 10*3/uL Normal 150-400 [facility] Comment on above: Performed By: #### L [id number] ####[facility] ([facility])[address] [address] RBC (Bld) [#/Vol] 3.11 10*6/uL Low 4.20-5.70 [facility] Comment on above: Performed By: #### L [id number] ####[facility] ([facility])[address] [address] WBC (Bld) [#/Vol] 6.53 10*3/uL Normal 4.00-10.60 [facility] Comment on above: Performed By: #### L [id number] ####[facility] ([facility])[address] [address] DSon 06-30-2024 DS Normal [facility] 30on 06-29-2024 30 Normal [facility] ANESon 06-29-2024 ANES Normal [facility] ANES Normal [facility] BASIC METABOLIC PANELon 06-07 Anion gap [Moles/Vol] 8 mmol/L Normal 7-20 [facility] Comment on above: Performed By: #### L [id number] ####[facility] [place] [address] Calcium [Mass/Vol] 8.1 mg/dL Low 8.6-10.3 [facility] Comment on above: Performed By: #### L [id number] ####[facility] ([facility])[address] [address] Chloride [Moles/Vol] 104 mmol/L Normal 98-107 [facility] Comment on above: Performed By: #### L [id number] ####[facility] ([facility] [place] [address] CO2 [Moles/Vol] 25 mmol/L Normal 21-31 [facility] Comment on above: Performed By: #### L [id number] ####[facility] ([facility])[address] [place] [address] Creatinine [Mass/Vol] 0.73 mg/dL Normal 0.70-1.30 [facility] Comment on above: Performed By: #### L [id number] ####[facility] ([facility])[address] [place] [address] GLOMERULAR FILTRATION RATE ML/MIN/1.73 SQ M.PREDICTED 90.8 mL/min/1.73m*2 Normal >60.0 [facility] Comment on above: Result Comment: [facility]???s estimated glomerular filtration rate (eGFR) will [...] individuals. Performed By: #### L [id number] ####[facility] ([facility])[address] [place] [address] Glucose [Mass/Vol] 95 mg/dL Normal 70-100 [facility] Comment on above: Performed By: #### L [id number] ####[facility] ([facility])[address] [place] [address] Potassium [Moles/Vol] 4.2 mmol/L Normal 3.5-5.1 [facility] Comment on above: Performed By: #### L [id number] ####[facility] ([facility])[address] [place] [address] Sodium [Moles/Vol] 133 mmol/L Low 136-145 [facility] Comment on above: Performed By: #### L [id number] ####[facility] ([facility])[address] [address] Urea nitrogen [Mass/Vol] 29 mg/dL High 7-25 [facility] Comment on above: Performed By: #### L [id number] ####[facility] ([facility] [address] UREA NITROGEN/CREATININE (MASS RATIO) IN SER/PLAS 39.7 Normal [facility] Comment on above: Performed By: #### L [id number] ####[facility] ([facility])[address] [address] CBCon 06-29-2024 Erythrocyte distribution width (RBC) [Ratio] 13.0 % Normal 11.5-15.0 [facility] Comment on above: Performed By: #### L [id number] ####[facility] ([facility])[address] [address] ERYTHROCYTE MEAN CORPUSCULAR HEMOGLOBIN CONCENTRATION (G/DL) BY AUTOMATED 32.1 g/dL Normal 32.0-35.0 [facility] Comment on above: Performed By: #### L [id number] ####[facility] ([facility])[address] [address] Hematocrit (Bld) [Volume fraction] 31.2 % Low 39.0-50.0 [facility] Comment on above: Performed By: #### L [id number] ####[facility] ([facility] [address] Hemoglobin (Bld) [Mass/Vol] 10.0 g/dL Low 13.0-17.0 [facility] Comment on above: Performed By: #### L [id number] ####[facility] ([facility])[address] [address] MCH (RBC) [Entitic mass] 29.5 pg Normal 27.0-33.0 [facility] Comment on above: Performed By: #### L [id number] ####[facility] ([facility])[address] [address] MCV (RBC) [Entitic vol] 92.0 fL Normal 82.0-98.0 [facility] Comment on above: Performed By: #### L [id number] ####[facility] ([facility])[address] [place] [address] PLATELETS (10*3/UL) IN BLOOD AUTOMATED COUNT 164 10*3/uL Normal 150-400 [facility] Comment on above: Performed By: #### L [id number] ####[facility] ([facility])[address] [place] [address] RBC (Bld) [#/Vol] 3.39 10*6/uL Low 4.20-5.70 [facility] Comment on above: Performed By: #### L [id number] ####[facility] ([facility])[address] [place] [address] WBC (Bld) [#/Vol] 8.52 10*3/uL Normal 4.00-10.60 [facility] Comment on above: Performed By: #### L [id number] ####[facility] ([facility])[address] [place] [address] FERRITINon 06-29-2024 FERRITIN (NG/ML) IN SER/PLAS 168.0 ng/mL Normal 24.0-336.0 [facility] Comment on above: Performed By: #### L [id number] ####[facility] ([facility])[address] [place] [address] FOLATEon 06-29-2024 FOLATE (NG/ML) IN SER/PLAS 7.77 ng/mL Normal 6.6-1000 [facility] Comment on above: Performed By: #### L [id number] ####[facility] ([facility] [place] [address] HEMOGLOBIN AND HEMATOCRIT, B LOODon 06-29-2024 Hematocrit (Bld) [Volume fraction] 27.7 % Low 39.0-50.0 [facility] Comment on above: Performed By: #### L [id number] ####[facility] ([facility] [place] [address] Hemoglobin (Bld) [Mass/Vol] 8.9 g/dL Low 13.0-17.0 [facility] Comment on above: Performed By: #### L [id number] ####[facility] ([facility])[address] [place] [address] Hematocrit (Bld) [Volume fraction] 33.7 % Low 39.0-50.0 [facility] Comment on above: Performed By: #### L [id number] ####[facility] ([facility])[address] [place] [address] Hemoglobin (Bld) [Mass/Vol] 10.7 g/dL Low 13.0-17.0 [facility] Comment on above: Performed By: #### L [id number] ####[facility] ([facility])[address] [place] [address] Hematocrit (Bld) [Volume fraction] 32.4 % Low 39.0-50.0 [facility] Comment on above: Performed By: #### L [id number] ####[facility] ([facility])[address] [place] [address] Hemoglobin (Bld) [Mass/Vol] 10.6 g/dL Low 13.0-17.0 [facility] Comment on above: Performed By: #### L [id number] ####[facility] ([facility])[address] [place] [address] IRON AND TIBCon 06-29-2024 IRON (UG/DL) IN SER/PLAS 40 ug/dL Low 50-212 [facility] Comment on above: Performed By: #### L [id number] ####[facility] ([facility])[address] [place] [address] IRON BINDING CAPACITY (UG/DL) IN SER/PLAS 227 ug/dL Low 250-450 [facility] Comment on above: Performed By: #### L [id number] ####[facility] ([facility])[address] [place] [address] IRON BINDING CAPACITY.UNSATURATED (UG/DL) IN SER/PLAS 187.0 ug/dL Normal 155.0-355. 0 [facility] Comment on above: Performed By: #### L [id number] ####[facility] ([facility])[address] [place] [address] IRON SATURATION (%) IN SER/PLAS 18 % Low 20-50 [facility] Comment on above: Performed By: #### L [id number] ####[facility] ([facility] [place] [address] TRANSFERRINon 06-29-2024 Magnesium [Mass/Vol] 195 mg/dL Normal 168-348 [facility] Comment on above: Performed By: #### L [id number] ####[facility] ([facility])[address] [place] [address] VITAMIN B12on 06-29-2024 Cobalamin (Vitamin B12) [Mass/Vol] 373 pg/mL Normal 180-914 [facility] Comment on above: Result Comment: REFE RENCE RANGES:180-914 pg/mL Flkkpr478-432 pg/mL Indeterminate<145 pg/mL Deficient Performed By: #### L [id number] ####[facility] ([facility])[address] [place] [address] 30on 06-28-2024 30 Normal [facility] 30 Normal [facility] 30 Normal [facility] BASIC METABOLIC PANELon 04-2 Anion gap [Moles/Vol] 10 mmol/L Normal 7-20 [facility] Comment on above: Performed By: #### L [id number] ####[facility] ([facility] [place] [address] Calcium [Mass/Vol] 8.2 mg/dL Low 8.6-10.3 [facility] Comment on above: Performed By: #### L [id number] ####[facility] ([facility] [place] [address] Chloride [Moles/Vol] 105 mmol/L Normal 98-107 [facility] Comment on above: Performed By: #### L [id number] ####[facility] ([facility])[address] [place] [address] CO2 [Moles/Vol] 24 mmol/L Normal 21-31 [facility] Comment on above: Performed By: #### L [id number] ####[facility] ([facility] [place] [address] Creatinine [Mass/Vol] 0.75 mg/dL Normal 0.70-1.30 [facility] Comment on above: Performed By: #### L [id number] ####[facility] ([facility])[address] [place] [address] GLOMERULAR FILTRATION RATE ML/MIN/1.73 SQ M.PREDICTED 90.1 mL/min/1.73m*2 Normal >60.0 [facility] Comment on above: Result Comment: [facility]???s estimated glomerular filtration rate (eGFR) will [...] individuals. Performed By: #### L [id number] ####[facility] ([facility] [place] [address] Glucose [Mass/Vol] 109 mg/dL High 70-100 [facility] Comment on above: Performed By: #### L [id number] ####[facility] ([facility] [place] [address] Potassium [Moles/Vol] 4.4 mmol/L Normal 3.5-5.1 [facility] Comment on above: Performed By: #### L [id number] ####[facility] ([facility] [place] [address] Sodium [Moles/Vol] 135 mmol/L Low 136-145 [facility] Comment on above: Performed By: #### L [id number] ####[facility] ([facility] [place] [place] [address] Urea nitrogen [Mass/Vol] 27 mg/dL High 7-25 [facility] Comment on above: Performed By: #### L [id number] ####[facility] ([facility] [place] [place] [address] UREA NITROGEN/CREATININE (MASS RATIO) IN SER/PLAS 36.0 Normal [facility] Comment on above: Performed By: #### L [id number] ####[facility] ([facility] [place] [place] [address] CBCon 06-28-2024 Erythrocyte distribution width (RBC) [Ratio] 12.7 % Normal 11.5-15.0 [facility] Comment on above: Performed By: #### L [id number] ####[facility] ([facility] [place] [address] ERYTHROCYTE MEAN CORPUSCULAR HEMOGLOBIN CONCENTRATION (G/DL) BY AUTOMATED 33.3 g/dL Normal 32.0-35.0 [facility] Comment on above: Performed By: #### L [id number] ####[facility] ([facility] [place] [address] Hematocrit (Bld) [Volume fraction] 31.5 % Low 39.0-50.0 [facility] Comment on above: Performed By: #### L [id number] ####[facility] ([facility] [place] [address] Hemoglobin (Bld) [Mass/Vol] 10.5 g/dL Low 13.0-17.0 [facility] Comment on above: Performed By: #### L [id number] ####[facility] ([facility])[address] [place] [address] MCH (RBC) [Entitic mass] 30.4 pg Normal 27.0-33.0 [facility] Comment on above: Performed By: #### L [id number] ####[facility] ([facility])[address] [address] MCV (RBC) [Entitic vol] 91.3 fL Normal 82.0-98.0 [facility] Comment on above: Performed By: #### L [id number] ####[facility] ([facility])[address] [place] [address] PLATELETS (10*3/UL) IN BLOOD AUTOMATED COUNT 155 10*3/uL Normal 150-400 [facility] Comment on above: Performed By: #### L [id number] ####[facility] ([facility])[address] [place] [address] RBC (Bld) [#/Vol] 3.45 10*6/uL Low 4.20-5.70 [facility] Comment on above: Performed By: #### L [id number] ####[facility] ([facility])[address] [place] [address] WBC (Bld) [#/Vol] 11.44 10*3/uL High 4.00-10.60 [facility] Comment on above: Performed By: #### L [id number] ####[facility] ([facility])[address] [address] CONSULTon 06-28-2024 CONSULT Normal [facility] CONSULT Normal [facility] HEMOGLOBIN AND HEMATOCRIT, B LOODon 06-28-2024 Hematocrit (Bld) [Volume fraction] 30.6 % Low 39.0-50.0 [facility] Comment on above: Performed By: #### L [id number] ####[facility] ([facility])[address] [place] [address] Hemoglobin (Bld) [Mass/Vol] 10.0 g/dL Low 13.0-17.0 [facility] Comment on above: Performed By: #### L [id number] ####[facility] ([facility])[address] [place] [address] Hematocrit (Bld) [Volume fraction] 32.7 % Low 39.0-50.0 [facility] Comment on above: Performed By: #### L [id number] ####[facility] ([facility])[address] [place] [address] Hemoglobin (Bld) [Mass/Vol] 10.6 g/dL Low 13.0-17.0 [facility] Comment on above: Performed By: #### L [id number] ####[facility] ([facility])[address] [place] [address] Hematocrit (Bld) [Volume fraction] 31.5 % Low 39.0-50.0 [facility] Comment on above: Performed By: #### L [id number] ####[facility] ([facility])[address] [place] [address] Hemoglobin (Bld) [Mass/Vol] 10.4 g/dL Low 13.0-17.0 [facility] Comment on above: Performed By: #### L [id number] ####[facility] ([facility])[address] [place] [address] MAGNESIUMon 06-28-2024 Magnesium [Mass/Vol] 1.8 mg/dL Low 1.9-2.7 [facility] Comment on above: Performed By: #### L [id number] ####[facility] ([facility])[address] [place] [address] ANESon 06-27-2024 ANES Normal [facility] ANES Normal [facility] HPon 06-27-2024 HP Normal [facility] HP Normal [facility] HP [facility] Basophils Auto (Bld) [#/Vol] on 06-21-2024 Basophils (Bld) [#/Vol] Automated basophil count 0.0-0.1 [facility] Basophils (Bld) [#/Vol] 0.1 10 3/uL 0.0-0.1 [facility] Basophils/100 WBC Auto (Bld) on 06-21-2024 Basophils/100 WBC (Bld) Automated basophil % 0.2-2.0 [facility] Basophils/100 WBC (Bld) 0.8 % 0.2-2.0 [facility] Eosinophils/100 WBC Auto (Bl d)on 06-21-2024 Eosinophils/100 WBC (Bld) Automated eosinophil % 0.9-7.0 [facility] Eosinophils/100 WBC (Bld) 2.2 % 0.9-7.0 [facility] Erythrocyte distribution wid th Auto (RBC) [Ratio]on 06-21-2024 Erythrocyte distribution width (RBC) [Ratio] Erythrocyte distribution width [Ratio] by Automated count 11.0-15.0 [facility] Erythrocyte distribution width (RBC) [Ratio] 12.6 % 11.0-15.0 [facility] Estimated glomerular filtrat ion rate (GFR) non- Americanon 06-21-2024 GFR/1.73 sq M.predicted among non-blacks MDRD (S/P/Bld) [Vol rate/Area] Estimated glomerular filtration rate (GFR) non- >=60 mL/min/1.7 3m 2 [facility] GFR/1.73 sq M.predicted among non-blacks MDRD (S/P/Bld) [Vol rate/Area] mL/min/{1.73_m2} >=60 mL/min/1.7 3m 2 [facility] Hematocrit Auto (Bld) [Volum e fraction]on 06-21-2024 Hematocrit (Bld) [Volume fraction] Hematocrit [Volume Fraction] of Blood by Automated count Low 42.0-54.0 [facility] Hematocrit (Bld) [Volume fraction] 34.3 % Low 42.0-54.0 [facility] Hemoglobin [Mass/volume] in Bloodon 06-21-2024 Hemoglobin (Bld) [Mass/Vol] Hemoglobin [Mass/volume] in Blood Low 14.0-18.0 [facility] Hemoglobin (Bld) [Mass/Vol] 11.0 g/dL Low 14.0-18.0 [facility] Laboratory - Chemistry and C hemistry - challengeon 06-21-2024 Albumin [Mass/Vol] 3.0 g/dL Low 3.4-5.0 [facility] Calcium [Mass/Vol] 8.4 mg/dL Low 8.5-10.1 [facility] Chloride [Moles/Vol] 105 mmol/L 98-107 [facility] CO2 [Moles/Vol] 31.8 mmol/L 21.0-32.0 [facility] Creatinine [Mass/Vol] 1.04 mg/dL 0.70-1.30 [facility] GFR/1.73 sq M.predicted MDRD (S/P/Bld) [Vol rate/Area] mL/min/{1.73_m2} >=60 mL/min/1.7 3m 2 [facility] Glucose [Mass/Vol] 119 mg/dL High 74-106 [facility] Potassium [Moles/Vol] 4.4 mmol/L 3.5-5.1 [facility] Sodium [Moles/Vol] 140 mmol/L 136-145 [facility] Urea nitrogen [Mass/Vol] 16.0 mg/dL 7.0-18.0 [facility] Urea nitrogen/Creatinine [Mass ratio] 15.4 mg/mg [facility] Laboratory - Hematology and Cell countson 06-21-2024 Immature granulocytes/100 WBC (Bld) 0.3 % 0.0-0.5 [facility] Leukocytes [#/volume] correc shyann for nucleated erythrocytes in Blood by Automated counon 06-21-2024 WBC corrected for nucl RBC Auto (Bld) [#/Vol] Leukocytes [#/volume] corrected for nucleated erythrocytes in Blood by Automated coun 4.0-11.0 [facility] WBC corrected for nucl RBC Auto (Bld) [#/Vol] 6.4 10 3/uL 4.0-11.0 [facility] Lymphocytes Auto (Bld) [#/Vo l]on 06-21-2024 Lymphocytes (Bld) [#/Vol] Lymphocytes [#/volume] in Blood by Automated count Low 1.2-3.8 [facility] Lymphocytes (Bld) [#/Vol] 1.0 10 3/uL Low 1.2-3.8 [facility] Lymphocytes/100 WBC Auto (Bl d)on 06-21-2024 Lymphocytes/100 WBC (Bld) Lymphocytes/100 leukocytes in Blood by Automated count Low 20.5-60.0 [facility] Lymphocytes/100 WBC (Bld) 16.1 % Low 20.5-60.0 [facility] MCH Auto (RBC) [Entitic mass ]on 06-21-2024 MCH (RBC) [Entitic mass] MCH [Entitic mass] by Automated count 25.9-34.0 [facility] MCH (RBC) [Entitic mass] 29.6 pg 25.9-34.0 [facility] MCHC Auto (RBC) [Mass/Vol]on 06-21-2024 MCHC (RBC) [Mass/Vol] MCHC [Mass/volume] by Automated count 29.9-35.2 [facility] MCHC (RBC) [Mass/Vol] 32.1 g/dL 29.9-35.2 [facility] MCV Auto (RBC) [Entitic vol] on 06-21-2024 MCV (RBC) [Entitic vol] MCV [Entitic volume] by Automated count 80.0-94.0 [facility] MCV (RBC) [Entitic vol] 92.5 fL 80.0-94.0 [facility] Monocytes Auto (Bld) [#/Vol] on 06-21-2024 Monocytes (Bld) [#/Vol] Automated blood monocyte count 0.3-0.8 [facility] Monocytes (Bld) [#/Vol] 0.8 10 3/uL 0.3-0.8 [facility] Monocytes/100 WBC Auto (Bld) on 06-21-2024 Monocytes/100 WBC (Bld) Automated monocyte % High 1.7-12.0 [facility] Monocytes/100 WBC (Bld) 13.0 % High 1.7-12.0 [facility] Neutrophils Auto (Bld) [#/Vo l]on 06-21-2024 Neutrophils (Bld) [#/Vol] Neutrophils [#/volume] in Blood by Automated count 1.4-6.5 [facility] Neutrophils (Bld) [#/Vol] 4.3 10 3/uL 1.4-6.5 [facility] Neutrophils/100 WBC Auto (Bl d)on 06-21-2024 Neutrophils/100 WBC (Bld) Automated neutrophil % 43.0-75.0 [facility] Neutrophils/100 WBC (Bld) 67.6 % 43.0-75.0 [facility] No Panel Informationon 06-21 Eosinophils # (Auto) 0.1 10 3/uL 0.0-0.7 [facility] Immature Granulocyte # (Auto) 0.02 10 3/uL 0.00-0.03 [facility] Platelet mean volume Auto (B ld) [Entitic vol]on 06-21-2024 Platelet mean volume (Bld) [Entitic vol] Platelet mean volume [Entitic volume] in Blood by Automated count 9.5-13.5 [facility] Platelet mean volume (Bld) [Entitic vol] 9.7 fL 9.5-13.5 [facility] Platelets Auto (Bld) [#/Vol] on 06-21-2024 Platelets (Bld) [#/Vol] Platelets [#/volume] in Blood by Automated count Low 150-450 [facility] Platelets (Bld) [#/Vol] 147 10 3/uL Low 150-450 [facility] RBC Auto (Bld) [#/Vol]on RBC (Bld) [#/Vol] Erythrocytes [#/volu me] in Blood by Automated count Low 4.70-6.10 [facility] RBC (Bld) [#/Vol] 3.71 10 6/uL Low 4.70-6.[address] [facility] Serum or plasma anion gap de terminationon 06-21-2024 Anion gap [Moles/Vol] Serum or plasma an ion gap determination [facility] Anion gap [Moles/Vol] 7.6 mmol/L [facility] Orders Onlyon 06-20-2024 Orders Only Normal [facility] Orders Onlyon 06-18-2024 Orders Only Normal [facility] Orders Onlyon 06-15-2024 Orders Only Normal [facility] CTA ABDOMEN PELVIS W IV CONT RASTon 06-06-2024 CTA ABDOMEN PELVIS W IV CONTRAST Invalid Interpretation Code [facility] CTA CHEST W IV CONTRASTon CTA CHEST W IV CONTRAST Invalid Interpretation Code [facility] [id number] 05-30-2024 [id number] Normal [facility] ANESon 05-30-2024 ANES Normal [facility] ANES Normal [facility] HISTOLOGY - TISSUE EXAMon LAB AP ADDENDUM 1 Normal [facility] Comment on above: Result Comment: A. I mmunohistochemical staining for Helicobacter pylori is negative. The control is satisfactory.Addendum electronically signed by Jez Vazquez MD on 06/07/2024 at 3:38 PM Performed By: #### L [id number] ####[facility] ([facility])[address] [place] [address] LAB AP ASR DISCLAIMER Normal [facility] Comment on above: Performed By: #### L [id number] ####[facility] ([facility])[address] [place] [address] LAB AP CASE REPORT Normal [facility] Comment on above: Result Comment: Surg ical Pathology Case: [id number] Provider: Frankie Brennan MD Collected: 05/30/2024 1351Ordering Location: [facility] Main Operating Room Received: 05/30/2024 1510Pathologist: KATE Sanchezpecimens: A) - Gastric, r/o h pylori B) - Proximal Esophagus, r/o EOE C) - Distal Esophagus, r/o EOE Performed By: #### L [id number] ####[facility] ([facility])[address] [place] [address] LAB AP CLINICAL INFORMATION Order Diagnoses Normal [facility] Comment on above: Result Comment: R13. 11 - Oral phase dysphagia [ICD-10-CM] Performed By: #### L [id number] ####[facility] ([facility])[address] [place] [address] LAB AP DIAGNOSIS COMMENT A. Immunohistochemical staining for Helicobacter pylori organisms is pending with results to follow in an addendum. [facility] Comment on above: Performed By: #### L [id number] ####[facility] ([facility])[address] [place] [address] LAB AP GROSS DESCRIPTION A. Gastric. [facility] Comment on above: Result Comment: [...] cassette.Nubia Gutierrez Pathologists' Assistant Hugo Feliciano, Pathologists' Lead Worker Of Housekeeping And Laundry Performed By: #### L [id number] ####[facility] ([facility])[address] [place] [address] LAB AP MICROSCOPIC DESCRIPTION Microscopic examination performed. [facility] Comment on above: Performed By: #### L [id number] ####[facility] ([facility])[address] [place] [address] LAB AP REPORT FINAL DIAGNOSIS NARRATIVE [facility] Comment on above: Result Comment: A. S tomach, biopsy: -Chronic inactive gastritis. -No intestinal metaplasia identified. -See comment.B. Proximal esophagus, biopsy: -Squamous mucosa with no specific abnormality.-No intraepithelial eosinophils identified.C. Distal esophagus, biopsy: -Gastroesophageal junction mucosa with nonspecific chronic inflammation. -No intestinal metaplasia identified. Performed By: #### L [id number] ####[facility] ([facility])[address] [place] [address] HPon 05-30-2024 HP H&P reviewed. The cora cee was examined and there are no changes to the H&P. Normal [facility] POCT GLUCOSE METER UNSOLICIT ED RESULTSon 05-30-2024 Glucose [Mass/Vol] 120 mg/dL High 70-105 [facility] Comment on above: Order Comment: Waive d Testing in the ED is performed under the ED CLIA certificate #[id number]. Result Comment: acas til5 Performed By: #### L [id number] ####[facility] ([facility])[address] [place] [address] Prep for Procedureon 025 Prep for Procedure Normal [facility] Estimated glomerular filtrat ion rate (GFR) non- Americanon 05-25-2024 GFR/1.73 sq M.predicted among non-blacks MDRD (S/P/Bld) [Vol rate/Area] Estimated glomerular filtration rate (GFR) non- >=60 mL/min/1.[address] [place] [address] Laboratory - Chemistry and C hemistry - challengeon 05-25-2024 Calcium [Mass/Vol] 8.6 mg/dL 8.5-10.1 [facility] Chloride [Moles/Vol] 104 mmol/L 98-107 [facility] CO2 [Moles/Vol] 30.2 mmol/L 21.0-32.0 [facility] Creatinine [Mass/Vol] 0.97 mg/dL 0.70-1.30 [facility] GFR/1.73 sq M.predicted MDRD (S/P/Bld) [Vol rate/Area] mL/min/{1.73_m2} >=60 mL/min/1.[address] [place] [address] Glucose [Mass/Vol] 96 mg/dL 74-106 [facility] Potassium [Moles/Vol] 4.4 mmol/L 3.5-5.1 [facility] Sodium [Moles/Vol] 140 mmol/L 136-145 [facility] Urea nitrogen [Mass/Vol] 16.0 mg/dL 7.0-18.0 [facility] Urea nitrogen/Creatinine [Mass ratio] 16.5 mg/mg [facility] Orders Onlyon 05-25-2024 Orders Only Normal [facility] Serum or plasma anion gap de terminationon 05-25-2024 Anion gap [Moles/Vol] Serum or plasma an ion gap determination [facility] Orders Onlyon 05-23-2024 Orders Only Normal [facility] Orders Onlyon 05-19-2024 Orders Only Normal [facility] Orders Onlyon 05-18-2024 Orders Only Normal [facility] HPon 05-03-2024 HP [facility] Consulton 04-18-2024 Consult [facility] ANESon 04-12-2024 ANES Normal [facility] HPon 04-12-2024 HP Normal [facility] HP Normal [facility] NURSNOTEon 04-12-2024 NURSNOTE Normal [facility] HPon 03-21-2024 HP Normal [facility] Orders Onlyon 03-21-2024 Orders Only [facility] 36on 02-15-[address] Cerda - ok for patient to hold Eliquis 2 days prior to tooth extraction. Patient's and Dr. Mcgovern's office made aware. Patient's also made aware of stress test result per Dr. Cerda. He has follow up apt with him on 03/21/2024. [facility] Follow-Upon 01-19-2024 Follow-Up [facility] Orders Onlyon 01-19-2024 Orders Only Normal [facility] US aortaon 01-11-2024 US aorta [facility] [address] [place] [address] Ultrasound Report Signed Patient: Chico Baker MR#: [id number] 284 : 1940 Acct:[id number] Age/Sex: 83 / M ADM Date: 01/11/24 Loc: [facility] Room: Type: [facility] Attending Dr: Raul Quan MD Ordering [...] Raul Quan M.D.01/11/2024 11:12 AM Dictation Location: [place] [address] Tech: Harika Lorne Transcribed By: ALEX 01/11/24 111 Dictated By: Raul Quan MD 01/11/24 111 Signed By: 01/11/24 1112 Normal [facility] Basophils Auto (Bld) [#/Vol] on 12-17-2023 Basophils (Bld) [#/Vol] 0.1 10 3/uL 0.0-0.1 [facility] Basophils/100 WBC Auto (Bld) on 12-17-2023 Basophils/100 WBC (Bld) 0.7 % 0.2-2.0 [facility] Eosinophils/100 WBC Auto (Bl d)on 12-17-2023 Eosinophils/100 WBC (Bld) 1.4 % 0.9-7.0 [facility] Erythrocyte distribution wid th Auto (RBC) [Ratio]on 12-17-2023 Erythrocyte distribution width (RBC) [Ratio] 12.3 % 11.0-15.0 [facility] Hematocrit Auto (Bld) [Volum e fraction]on 12-17-2023 Hematocrit (Bld) [Volume fraction] 39.0 % Low 42.0-54.0 [facility] Hemoglobin [Mass/volume] in Bloodon 12-17-2023 Hemoglobin (Bld) [Mass/Vol] 12.7 g/dL Low 14.0-18.0 [facility] Laboratory - Hematology and Cell countson 12-17-2023 Immature granulocytes/100 WBC (Bld) 0.3 % 0.0-0.5 [facility] Leukocytes [#/volume] correc shyann for nucleated erythrocytes in Blood by Automated counon 12-17-2023 WBC corrected for nucl RBC Auto (Bld) [#/Vol] 10.7 10 3/uL 4.0-11.0 [facility] Lymphocytes Auto (Bld) [#/Vo l]on 12-17-2023 Lymphocytes (Bld) [#/Vol] 1.7 10 3/uL 1.2-3.8 [facility] Lymphocytes/100 WBC Auto (Bl d)on 12-17-2023 Lymphocytes/100 WBC (Bld) 15.7 % Low 20.5-60.0 [facility] MCH Auto (RBC) [Entitic mass ]on 12-17-2023 MCH (RBC) [Entitic mass] 30.4 pg 25.9-34.0 [facility] MCHC Auto (RBC) [Mass/Vol]on 12-17-2023 MCHC (RBC) [Mass/Vol] 32.6 g/dL 29.9-35.2 [facility] MCV Auto (RBC) [Entitic vol] on 12-17-2023 MCV (RBC) [Entitic vol] 93.3 fL 80.0-94.0 [facility] Monocytes Auto (Bld) [#/Vol] on 12-17-2023 Monocytes (Bld) [#/Vol] 1.0 10 3/uL High 0.3-0.8 [facility] Monocytes/100 WBC Auto (Bld) on 12-17-2023 Monocytes/100 WBC (Bld) 9.7 % 1.7-12.0 [facility] Neutrophils Auto (Bld) [#/Vo l]on 12-17-2023 Neutrophils (Bld) [#/Vol] 7.7 10 3/uL High 1.4-6.5 [facility] Neutrophils/100 WBC Auto (Bl d)on 12-17-2023 Neutrophils/100 WBC (Bld) 72.2 % 43.0-75.0 [facility] No Panel Informationon 12-16 C-Reactive Protein, Quantitative 0.59 mg/dL High <=0.50 [facility] Eosinophils # (Auto) 0.2 10 3/uL 0.0-0.7 [facility] Immature Granulocyte # (Auto) 0.03 10 3/uL 0.00-0.03 [facility] Clostridium difficile (PCR)(LAB) Positive Abnormal NEGATIVE [facility] Comment on above: RESULTS CALLED TO CARLOS A RICHARDS Miscellaneous Test Comment See comment [facility] Comment on above: Specimen Source: ST - Stool - Stool - 700.100 Stool Campylobacter Culture Res 1 \R\ Campylobacter Culture\R\ No Campylobacter species isolated. [facility] Comment on above: [facility], No Panel InformationOrdered By: Shailesh Dunham on 12-17-2023 E coli Shiga Toxin EIA Fi [facility] Salmonella/Shigella Screen [facility] Platelet mean volume Auto (B ld) [Entitic vol]on 12-17-2023 Platelet mean volume (Bld) [Entitic vol] 9.4 fL Low 9.5-13.5 [facility] Platelets Auto (Bld) [#/Vol] on 12-17-2023 Platelets (Bld) [#/Vol] 190 10 3/uL 150-450 [facility] RBC Auto (Bld) [#/Vol]on RBC (Bld) [#/Vol] 4.18 10 6/uL Low 4.70-6.[address] [facility] US carotid doppler BIon 09-0 US carotid doppler BI [facility] [address] [place] [address] Ultrasound Report Signed Patient: SamuelChico pickard MR#: [id number] 284 : 1940 Acct:[id number] Age/Sex: 83 / M ADM Date: 11/15/23 Loc: [facility] Room: Type: [facility] Attending Dr: Raul Quan MD Ordering [...] Raul Quan M.D.11/15/2023 10:27 AM Dictation Location: [place] [address] Tech: Jennifer Addis Transcribed By: ALEX 11/15/23 1027 Dictated By: Raul Quan MD 11/15/23 1025 Signed By: 11/15/23 1027 Normal [facility] Basophils Auto (Bld) [#/Vol] on 10-26-2023 Basophils (Bld) [#/Vol] 0.1 10 3/uL 0.0-0.1 [facility] Basophils/100 WBC Auto (Bld) on 10-26-2023 Basophils/100 WBC (Bld) 0.5 % 0.2-2.0 [facility] Eosinophils/100 WBC Auto (Bl d)on 10-26-2023 Eosinophils/100 WBC (Bld) 2.9 % 0.9-7.0 [facility] Erythrocyte distribution wid th Auto (RBC) [Ratio]on 10-26-2023 Erythrocyte distribution width (RBC) [Ratio] 12.7 % 11.0-15.0 [facility] Estimated glomerular filtrat ion rate (GFR) non- Americanon 10-26-2023 GFR/1.73 sq M.predicted among non-blacks MDRD (S/P/Bld) [Vol rate/Area] mL/min/{1.73_m2} >=60 [facility] Globulin Calc (S) [Mass/Vol] on 10-26-2023 Globulin (S) [Mass/Vol] 3.9 g/dL [facility] Hematocrit Auto (Bld) [Volum e fraction]on 10-26-2023 Hematocrit (Bld) [Volume fraction] 32.4 % Low 42.0-54.0 [facility] Hemoglobin [Mass/volume] in Bloodon 10-26-2023 Hemoglobin (Bld) [Mass/Vol] 10.4 g/dL Low 14.0-18.0 [facility] Laboratory - Chemistry and C hemistry - challengeon 10-26-2023 Albumin [Mass/Vol] 3.1 g/dL Low 3.4-5.0 [facility] ALP [Catalytic activity/Vol] 106 U/L 46-116 [facility] ALT [Catalytic activity/Vol] 19 U/L 16-63 [facility] AST [Catalytic activity/Vol] 16 U/L 15-37 [facility] Bilirubin [Mass/Vol] 0.5 mg/dL 0.2-1.0 [facility] Calcium [Mass/Vol] 8.8 mg/dL 8.5-10.1 [facility] Chloride [Moles/Vol] 100 mmol/L 98-107 [facility] CO2 [Moles/Vol] 29.0 mmol/L 21.0-32.0 [facility] Creatinine [Mass/Vol] 0.95 mg/dL 0.70-1.30 [facility] GFR/1.73 sq M.predicted MDRD (S/P/Bld) [Vol rate/Area] mL/min/{1.73_m2} >=60 [facility] Glucose [Mass/Vol] 134 mg/dL High 74-106 [facility] Potassium [Moles/Vol] 4.5 mmol/L 3.5-5.1 [facility] Protein [Mass/Vol] 7.0 g/dL 6.4-8.2 [facility] Sodium [Moles/Vol] 136 mmol/L 136-145 [facility] TSH Qn 2.068 m[IU]/L 0.358-3.74 0 [facility] Urea nitrogen [Mass/Vol] 14.0 mg/dL 7.0-18.0 [facility] Urea nitrogen/Creatinine [Mass ratio] 14.7 mg/mg [facility] Laboratory - Hematology and Cell countson 10-26-2023 Immature granulocytes/100 WBC (Bld) 0.5 % 0.0-0.5 [facility] Leukocytes [#/volume] correc shyann for nucleated erythrocytes in Blood by Automated counon 10-26-2023 WBC corrected for nucl RBC Auto (Bld) [#/Vol] 12.4 10 3/uL High 4.0-11.0 [facility] Lymphocytes Auto (Bld) [#/Vo l]on 10-26-2023 Lymphocytes (Bld) [#/Vol] 1.4 10 3/uL 1.2-3.8 [facility] Lymphocytes/100 WBC Auto (Bl d)on 10-26-2023 Lymphocytes/100 WBC (Bld) 11.6 % Low 20.5-60.0 [facility] MCH Auto (RBC) [Entitic mass ]on 10-26-2023 MCH (RBC) [Entitic mass] 30.0 pg 25.9-34.0 [facility] MCHC Auto (RBC) [Mass/Vol]on 10-26-2023 MCHC (RBC) [Mass/Vol] 32.1 g/dL 29.9-35.2 [facility] MCV Auto (RBC) [Entitic vol] on 10-26-2023 MCV (RBC) [Entitic vol] 93.4 fL 80.0-94.0 [facility] Monocytes Auto (Bld) [#/Vol] on 10-26-2023 Monocytes (Bld) [#/Vol] 1.4 10 3/uL High 0.3-0.8 [facility] Monocytes/100 WBC Auto (Bld) on 10-26-2023 Monocytes/100 WBC (Bld) 11.0 % 1.7-12.0 [facility] Neutrophils Auto (Bld) [#/Vo l]on 10-26-2023 Neutrophils (Bld) [#/Vol] 9.1 10 3/uL High 1.4-6.5 [facility] Neutrophils/100 WBC Auto (Bl d)on 10-26-2023 Neutrophils/100 WBC (Bld) 73.5 % 43.0-75.0 [facility] No Panel Informationon 10-25 Eosinophils # (Auto) 0.4 10 3/uL 0.0-0.7 [facility] Immature Granulocyte # (Auto) 0.06 10 3/uL High 0.00-0.03 [facility] Platelet mean volume Auto (B ld) [Entitic vol]on 10-26-2023 Platelet mean volume (Bld) [Entitic vol] 9.2 fL Low 9.5-13.5 [facility] Platelets Auto (Bld) [#/Vol] on 10-26-2023 Platelets (Bld) [#/Vol] 209 10 3/uL 150-450 [facility] RBC Auto (Bld) [#/Vol]on RBC (Bld) [#/Vol] 3.47 10 6/uL Low 4.70-6.[address] [facility] Serum or plasma albumin/glob ulin mass ratioon 10-26-2023 Albumin/Globulin [Mass ratio] 0.8 {ratio} [facility] Serum or plasma anion gap de terminationon 10-26-2023 Anion gap [Moles/Vol] 11.5 mmol/L [facility] Basophils Auto (Bld) [#/Vol] on 10-17-2023 Basophils (Bld) [#/Vol] 0.0 10 3/uL 0.0-0.1 [facility] Basophils/100 WBC Auto (Bld) on 10-17-2023 Basophils/100 WBC (Bld) 0.2 % 0.2-2.0 [facility] Eosinophils/100 WBC Auto (Bl d)on 10-17-2023 Eosinophils/100 WBC (Bld) 1.6 % 0.9-7.0 [facility] Erythrocyte distribution wid th Auto (RBC) [Ratio]on 10-17-2023 Erythrocyte distribution width (RBC) [Ratio] 12.2 % 11.0-15.0 [facility] Estimated glomerular filtrat ion rate (GFR) non- Americanon 10-17-2023 GFR/1.73 sq M.predicted among non-blacks MDRD (S/P/Bld) [Vol rate/Area] mL/min/{1.73_m2} >=60 [facility] Globulin Calc (S) [Mass/Vol] on 10-17-2023 Globulin (S) [Mass/Vol] 3.5 g/dL [facility] Hematocrit Auto (Bld) [Volum e fraction]on 10-17-2023 Hematocrit (Bld) [Volume fraction] 29.1 % Low 42.0-54.0 [facility] Hemoglobin [Mass/volume] in Bloodon 10-17-2023 Hemoglobin (Bld) [Mass/Vol] 9.6 g/dL Low 14.0-18.0 [facility] Laboratory - Chemistry and C hemistry - challengeon 10-17-2023 Albumin [Mass/Vol] 2.8 g/dL Low 3.4-5.0 [facility] ALP [Catalytic activity/Vol] 99 U/L 46-116 [facility] ALT [Catalytic activity/Vol] 33 U/L 16-63 [facility] AST [Catalytic activity/Vol] 15 U/L 15-37 [facility] Bilirubin [Mass/Vol] 0.8 mg/dL 0.2-1.0 [facility] Calcium [Mass/Vol] 8.4 mg/dL Low 8.5-10.1 [facility] Chloride [Moles/Vol] 96 mmol/L Low 98-107 [facility] CO2 [Moles/Vol] 30.9 mmol/L 21.0-32.0 [facility] Creatinine [Mass/Vol] 0.84 mg/dL 0.70-1.30 [facility] GFR/1.73 sq M.predicted MDRD (S/P/Bld) [Vol rate/Area] mL/min/{1.73_m2} >=60 [facility] Glucose [Mass/Vol] 103 mg/dL 74-106 [facility] Natriuretic peptide B (Bld) [Mass/Vol] 1963.0 pg/mL High <=1800.0 [facility] Comment on above: RESULTS CALLED TO MIMI Elaine RN @BY Fuad Carmona MLT at 0617 Potassium [Moles/Vol] 3.8 mmol/L 3.5-5.1 [facility] Protein [Mass/Vol] 6.3 g/dL Low 6.4-8.2 [facility] Sodium [Moles/Vol] 130 mmol/L Low 136-145 [facility] Urea nitrogen [Mass/Vol] 28.0 mg/dL High 7.0-18.0 [facility] Urea nitrogen/Creatinine [Mass ratio] 33.3 mg/mg [facility] Laboratory - Hematology and Cell countson 10-17-2023 Immature granulocytes/100 WBC (Bld) 0.4 % 0.0-0.5 [facility] Leukocytes [#/volume] correc shyann for nucleated erythrocytes in Blood by Automated counon 10-17-2023 WBC corrected for nucl RBC Auto (Bld) [#/Vol] 9.1 10 3/uL 4.0-11.0 [facility] Lymphocytes Auto (Bld) [#/Vo l]on 10-17-2023 Lymphocytes (Bld) [#/Vol] 1.2 10 3/uL 1.2-3.8 [facility] Lymphocytes/100 WBC Auto (Bl d)on 10-17-2023 Lymphocytes/100 WBC (Bld) 13.5 % Low 20.5-60.0 [facility] MCH Auto (RBC) [Entitic mass ]on 10-17-2023 MCH (RBC) [Entitic mass] 30.2 pg 25.9-34.0 [facility] MCHC Auto (RBC) [Mass/Vol]on 10-17-2023 MCHC (RBC) [Mass/Vol] 33.0 g/dL 29.9-35.2 [facility] MCV Auto (RBC) [Entitic vol] on 10-17-2023 MCV (RBC) [Entitic vol] 91.5 fL 80.0-94.0 [facility] Monocytes Auto (Bld) [#/Vol] on 10-17-2023 Monocytes (Bld) [#/Vol] 1.1 10 3/uL High 0.3-0.8 [facility] Monocytes/100 WBC Auto (Bld) on 10-17-2023 Monocytes/100 WBC (Bld) 12.0 % 1.7-12.0 [facility] Neutrophils Auto (Bld) [#/Vo l]on 10-17-2023 Neutrophils (Bld) [#/Vol] 6.6 10 3/uL High 1.4-6.5 [facility] Neutrophils/100 WBC Auto (Bl d)on 10-17-2023 Neutrophils/100 WBC (Bld) 72.3 % 43.0-75.0 [facility] No Panel Informationon 10-16 Eosinophils # (Auto) 0.2 10 3/uL 0.0-0.7 [facility] Immature Granulocyte # (Auto) 0.04 10 3/uL High 0.00-0.03 [facility] Troponin I High Sensitivity 180.4 pg/mL High 4.0-76.1 [facility] Comment on above: RESULTS CALLED [...] volume (Bld) [Entitic vol] 9.7 fL 9.5-13.5 [facility] Platelets Auto (Bld) [#/Vol] on 10-17-2023 Platelets (Bld) [#/Vol] 191 10 3/uL 150-450 [facility] RBC Auto (Bld) [#/Vol]on RBC (Bld) [#/Vol] 3.18 10 6/uL Low 4.70-6.[address] [facility] Serum or plasma albumin/glob ulin mass ratioon 10-17-2023 Albumin/Globulin [Mass ratio] 0.8 {ratio} [facility] Serum or plasma anion gap de terminationon 10-17-2023 Anion gap [Moles/Vol] 6.9 mmol/L [facility] Basophils Auto (Bld) [#/Vol] on 10-16-2023 Basophils (Bld) [#/Vol] 0.0 10 3/uL 0.0-0.1 [facility] Basophils/100 WBC Auto (Bld) on 10-16-2023 Basophils/100 WBC (Bld) 0.2 % 0.2-2.0 [facility] Basophils/100 WBC Manual cnt (Bld)on 10-16-2023 Basophils/100 WBC (Bld) 1.0 % 0.2-2.0 [facility] Eosinophils/100 WBC Auto (Bl d)on 10-16-2023 Eosinophils/100 WBC (Bld) 0.3 % Low 0.9-7.0 [facility] Eosinophils/100 WBC Manual c nt (Bld)on 10-16-2023 Eosinophils/100 WBC (Bld) 0.0 % Low 0.9-7.0 [facility] Erythrocyte distribution wid th Auto (RBC) [Ratio]on 10-16-2023 Erythrocyte distribution width (RBC) [Ratio] 12.4 % 11.0-15.0 [facility] Estimated glomerular filtrat ion rate (GFR) non- [place]on 10-16-2023 GFR/1.73 sq M.predicted among non-blacks MDRD (S/P/Bld) [Vol rate/Area] mL/min/{1.73_m2} >=60 [facility] Globulin Calc (S) [Mass/Vol] on 10-16-2023 Globulin (S) [Mass/Vol] 3.7 g/dL [facility] Hematocrit Auto (Bld) [Volum e fraction]on 10-16-2023 Hematocrit (Bld) [Volume fraction] 30.5 % Low 42.0-54.0 [facility] Hemoglobin [Mass/volume] in Bloodon 10-16-2023 Hemoglobin (Bld) [Mass/Vol] 10.2 g/dL Low 14.0-18.0 [facility] Laboratory - Chemistry and C hemistry - challengeon 10-16-2023 Albumin [Mass/Vol] 2.9 g/dL Low 3.4-5.0 [facility] ALP [Catalytic activity/Vol] 98 U/L 46-116 [facility] ALT [Catalytic activity/Vol] 45 U/L 16-63 [facility] AST [Catalytic activity/Vol] 19 U/L 15-37 [facility] Bilirubin [Mass/Vol] 0.8 mg/dL 0.2-1.0 [facility] Calcium [Mass/Vol] 8.3 mg/dL Low 8.5-10.1 [facility] Chloride [Moles/Vol] 97 mmol/L Low 98-107 [facility] CO2 [Moles/Vol] 31.7 mmol/L 21.0-32.0 [facility] Creatinine [Mass/Vol] 0.84 mg/dL 0.70-1.30 [facility] GFR/1.73 sq M.predicted MDRD (S/P/Bld) [Vol rate/Area] mL/min/{1.73_m2} >=60 [facility] Glucose [Mass/Vol] 94 mg/dL 74-106 [facility] Natriuretic peptide B (Bld) [Mass/Vol] 4170.0 pg/mL High <=1800.0 [facility] Comment on above: RESULTS CALLED TO PRECIOUS MURPHY RN Potassium [Moles/Vol] 3.5 mmol/L 3.5-5.1 [facility] Protein [Mass/Vol] 6.6 g/dL 6.4-8.2 [facility] Sodium [Moles/Vol] 132 mmol/L Low 136-145 [facility] Urea nitrogen [Mass/Vol] 31.0 mg/dL High 7.0-18.0 [facility] Urea nitrogen/Creatinine [Mass ratio] 36.9 mg/mg [facility] Laboratory - Hematology and Cell countson 10-16-2023 Lymphocytes/100 WBC (Bld) 12.0 % Low 20.5-60.0 [facility] Monocytes/100 WBC (Bld) 11.0 % 1.7-12.0 [facility] Immature granulocytes/100 WBC (Bld) 0.3 % 0.0-0.5 [facility] Leukocytes [#/volume] correc shyann for nucleated erythrocytes in Blood by Automated counon 10-16-2023 WBC corrected for nucl RBC Auto (Bld) [#/Vol] 11.6 10 3/uL High 4.0-11.0 [facility] Lymphocytes Auto (Bld) [#/Vo l]on 10-16-2023 Lymphocytes (Bld) [#/Vol] 1.4 10 3/uL 1.2-3.8 [facility] Lymphocytes/100 WBC Auto (Bl d)on 10-16-2023 Lymphocytes/100 WBC (Bld) 14.6 % Low 20.5-60.0 [facility] MCH Auto (RBC) [Entitic mass ]on 10-16-2023 MCH (RBC) [Entitic mass] 30.4 pg 25.9-34.0 [facility] MCHC Auto (RBC) [Mass/Vol]on 10-16-2023 MCHC (RBC) [Mass/Vol] 33.4 g/dL 29.9-35.2 [facility] MCV Auto (RBC) [Entitic vol] on 10-16-2023 MCV (RBC) [Entitic vol] 91.0 fL 80.0-94.0 [facility] Monocytes Auto (Bld) [#/Vol] on 10-16-2023 Monocytes (Bld) [#/Vol] 1.1 10 3/uL High 0.3-0.8 [facility] Monocytes/100 WBC Auto (Bld) on 10-16-2023 Monocytes/100 WBC (Bld) 12.3 % High 1.7-12.0 [facility] Neutrophils Auto (Bld) [#/Vo l]on 10-16-2023 Neutrophils (Bld) [#/Vol] 6.7 10 3/uL High 1.4-6.5 [facility] Neutrophils/100 WBC Auto (Bl d)on 10-16-2023 Neutrophils/100 WBC (Bld) 72.3 % 43.0-75.0 [facility] No Panel Informationon 10-15 Absolute Basophils (Manual) 0.11 10 3/uL High 0.00-0.10 [facility] Eosinophils # (Manual) 0.00 10 3/uL 0.00-0.70 [facility] Lymphocytes # (Manual) 1.39 10 3/uL 1.20-3.80 [facility] Monocytes # (Manual) 1.27 10 3/uL High 0.30-0.80 [facility] Segmented Neutrophils # (Manual) 8.81 10 3/uL High 1.4-6.5 [facility] Aerobic Culture Result 1 \R\ Result 3\R\ WORKFORCE MANAGER [facility] Comment on above: [facility], Aerobic Culture Result 2 \R\ Result 4\R\ WORKFORCE MANAGER [facility] Comment on above: [facility], Gram Stain Comment (LAB) [facility] Gram Stain Result [address] [facility] Comment on above: [facility], Gram Stain Result [address] [facility] Comment on above: [facility], Miscellaneous Test Comment See comment [facility] Comment on above: Specimen Source: S - Sputum - Sputum - 300.100 Sputum Other Cells \R\ White Blood Cells [facility] Sputum Other Cells 2 \R\ Epithelial Cell s\R\ Few [facility] Comment on above: [facility], Eosinophils # (Auto) 0.0 10 3/uL 0.0-0.7 [facility] Immature Granulocyte # (Auto) 0.03 10 3/uL 0.00-0.03 [facility] Troponin I High Sensitivity 209.6 pg/mL High 4.0-76.1 [facility] Comment on above: RESULTS CALLED [...] volume (Bld) [Entitic vol] 9.5 fL 9.5-13.5 [facility] Platelets Auto (Bld) [#/Vol] on 10-16-2023 Platelets (Bld) [#/Vol] 240 10 3/uL 150-450 [facility] RBC Auto (Bld) [#/Vol]on RBC (Bld) [#/Vol] 3.35 10 6/uL Low 4.70-6.[address] [facility] Segmented neutrophils/100 WB C Manual cnt (Bld)on 10-16-2023 Segmented neutrophils/100 WBC (Bld) 76.0 % High 43.0-75.0 [facility] Serum or plasma albumin/glob ulin mass ratioon 10-16-2023 Albumin/Globulin [Mass ratio] 0.8 {ratio} [facility] Serum or plasma anion gap de terminationon 10-16-2023 Anion gap [Moles/Vol] 6.8 mmol/L [facility] Basophils Auto (Bld) [#/Vol] on 10-15-2023 Basophils (Bld) [#/Vol] 0.0 10 3/uL 0.0-0.1 [facility] Basophils/100 WBC Auto (Bld) on 10-15-2023 Basophils/100 WBC (Bld) 0.0 % Low 0.2-2.0 [facility] Cholesterol in LDL Calc [Mas s/Vol]on 10-15-2023 Cholesterol in LDL [Mass/Vol] 39.0 mg/dL [facility] Comment on above: <100 mg/dl [id number] 0-129 mg/dl NEAR OR ABOVE [id number] mg/dl BORDERLINE [id number] mg/dl HIGH>190 mg/dl VERY HIGH Cholesterol in VLDL Calc [Ma ss/Vol]on 10-15-2023 Cholesterol in VLDL [Mass/Vol] 11.2 mg/dL [facility] Eosinophils/100 WBC Auto (Bl d)on 10-15-2023 Eosinophils/100 WBC (Bld) 0.0 % Low 0.9-7.0 [facility] Erythrocyte distribution wid th Auto (RBC) [Ratio]on 10-15-2023 Erythrocyte distribution width (RBC) [Ratio] 12.4 % 11.0-15.0 [facility] Estimated glomerular filtrat ion rate (GFR) non- Americanon 10-15-2023 GFR/1.73 sq M.predicted among non-blacks MDRD (S/P/Bld) [Vol rate/Area] mL/min/{1.73_m2} >=60 [facility] Globulin Calc (S) [Mass/Vol] on 10-15-2023 Globulin (S) [Mass/Vol] 3.5 g/dL [facility] Hematocrit Auto (Bld) [Volum e fraction]on 10-15-2023 Hematocrit (Bld) [Volume fraction] 28.8 % Low 42.0-54.0 [facility] Hemoglobin [Mass/volume] in Bloodon 10-15-2023 Hemoglobin (Bld) [Mass/Vol] 9.6 g/dL Low 14.0-18.0 [facility] Laboratory - Chemistry and C hemistry - challengeon 10-15-2023 Albumin [Mass/Vol] 2.9 g/dL Low 3.4-5.0 [facility] ALP [Catalytic activity/Vol] 100 U/L 46-116 [facility] ALT [Catalytic activity/Vol] 50 U/L 16-63 [facility] AST [Catalytic activity/Vol] 27 U/L 15-37 [facility] Bilirubin [Mass/Vol] 0.8 mg/dL 0.2-1.0 [facility] Calcium [Mass/Vol] 8.7 mg/dL 8.5-10.1 [facility] Chloride [Moles/Vol] 99 mmol/L 98-107 [facility] Cholesterol [Mass/Vol] 89 mg/dL <=200 [facility] Cholesterol in HDL [Mass/Vol] 39 mg/dL Low 40-60 [facility] Comment on above: > or =60 mg/dl - LOW CARDIOVASCULAR RISK<40 mg/dl - HIGH CARDIOVASCULAR RISK CO2 [Moles/Vol] 26.8 mmol/L 21.0-32.0 [facility] Creatinine [Mass/Vol] 0.83 mg/dL 0.70-1.30 [facility] GFR/1.73 sq M.predicted MDRD (S/P/Bld) [Vol rate/Area] mL/min/{1.73_m2} >=60 [facility] Glucose [Mass/Vol] 137 mg/dL High 74-106 [facility] Magnesium [Mass/Vol] 1.6 mg/dL Low 1.8-2.4 [facility] Potassium [Moles/Vol] 3.9 mmol/L 3.5-5.1 [facility] Protein [Mass/Vol] 6.4 g/dL 6.4-8.2 [facility] Sodium [Moles/Vol] 134 mmol/L Low 136-145 [facility] Triglyceride [Mass/Vol] 56 mg/dL <=150 [facility] TSH Qn 0.543 m[IU]/L 0.358-3.74 0 [facility] Urea nitrogen [Mass/Vol] 20.0 mg/dL High 7.0-18.0 [facility] Urea nitrogen/Creatinine [Mass ratio] 24.1 mg/mg [facility] Laboratory - Hematology and Cell countson 10-15-2023 Immature granulocytes/100 WBC (Bld) 0.4 % 0.0-0.5 [facility] Leukocytes [#/volume] correc shyann for nucleated erythrocytes in Blood by Automated counon 10-15-2023 WBC corrected for nucl RBC Auto (Bld) [#/Vol] 8.2 10 3/uL 4.0-11.0 [facility] Lymphocytes Auto (Bld) [#/Vo l]on 10-15-2023 Lymphocytes (Bld) [#/Vol] 0.8 10 3/uL Low 1.2-3.8 [facility] Lymphocytes/100 WBC Auto (Bl d)on 10-15-2023 Lymphocytes/100 WBC (Bld) 9.2 % Low 20.5-60.0 [facility] MCH Auto (RBC) [Entitic mass ]on 10-15-2023 MCH (RBC) [Entitic mass] 30.3 pg 25.9-34.0 [facility] MCHC Auto (RBC) [Mass/Vol]on 10-15-2023 MCHC (RBC) [Mass/Vol] 33.3 g/dL 29.9-35.2 [facility] MCV Auto (RBC) [Entitic vol] on 10-15-2023 MCV (RBC) [Entitic vol] 90.9 fL 80.0-94.0 [facility] Monocytes Auto (Bld) [#/Vol] on 10-15-2023 Monocytes (Bld) [#/Vol] 0.7 10 3/uL 0.3-0.8 [facility] Monocytes/100 WBC Auto (Bld) on 10-15-2023 Monocytes/100 WBC (Bld) 9.0 % 1.7-12.0 [facility] Neutrophils Auto (Bld) [#/Vo l]on 10-15-2023 Neutrophils (Bld) [#/Vol] 6.7 10 3/uL High 1.4-6.5 [facility] Neutrophils/100 WBC Auto (Bl d)on 10-15-2023 Neutrophils/100 WBC (Bld) 81.4 % High 43.0-75.0 [facility] No Panel Informationon 10-14 Troponin I High Sensitivity 214.0 pg/mL High 4.0-76.1 [facility] Comment on above: RESULTS CALLED [...] Eosinophils # (Auto) 0.0 10 3/uL 0.0-0.7 [facility] Immature Granulocyte # (Auto) 0.03 10 3/uL 0.00-0.03 [facility] Platelet mean volume Auto (B ld) [Entitic vol]on 10-15-2023 Platelet mean volume (Bld) [Entitic vol] 10.1 fL 9.5-13.5 [facility] Platelets Auto (Bld) [#/Vol] on 10-15-2023 Platelets (Bld) [#/Vol] 152 10 3/uL 150-450 [facility] RBC Auto (Bld) [#/Vol]on RBC (Bld) [#/Vol] 3.17 10 6/uL Low 4.70-6.[address] [facility] Serum or plasma albumin/glob ulin mass ratioon 10-15-2023 Albumin/Globulin [Mass ratio] 0.8 {ratio} [facility] Serum or plasma anion gap de terminationon 10-15-2023 Anion gap [Moles/Vol] 12.1 mmol/L [facility] Serum or plasma total choles terol/high density lipoprotein (HDL) cholesterol mass lalo 10-15-2023 Cholesterol.total/Chol esterol in HDL [Mass ratio] 2.3 {ratio} [facility] Comment on above: 3.3 - 4.4 LOW RISK4. 4 - 7.1 AVERAGE RISK7.1 - 11.0 MODERATE RISK>11.0 HIGH RISK Activated partial thrombopla stin time (aPTT) in platelet poor plasma by coagulation aon 10-14-2023 aPTT Coag (PPP) [Time] 30.8 s 22.3-36.2 [facility] Basophils Auto (Bld) [#/Vol] on 10-14-2023 Basophils (Bld) [#/Vol] 0.0 10 3/uL 0.0-0.1 [facility] Basophils/100 WBC Auto (Bld) on 10-14-2023 Basophils/100 WBC (Bld) 0.1 % Low 0.2-2.0 [facility] Eosinophils/100 WBC Auto (Bl d)on 10-14-2023 Eosinophils/100 WBC (Bld) 0.1 % Low 0.9-7.0 [facility] Erythrocyte distribution wid th Auto (RBC) [Ratio]on 10-14-2023 Erythrocyte distribution width (RBC) [Ratio] 12.2 % 11.0-15.0 [facility] Estimated glomerular filtrat ion rate (GFR) non- Americanon 10-14-2023 GFR/1.73 sq M.predicted among non-blacks MDRD (S/P/Bld) [Vol rate/Area] mL/min/{1.73_m2} >=60 [facility] Hematocrit Auto (Bld) [Volum e fraction]on 10-14-2023 Hematocrit (Bld) [Volume fraction] 31.6 % Low 42.0-54.0 [facility] Hemoglobin [Mass/volume] in Bloodon 10-14-2023 Hemoglobin (Bld) [Mass/Vol] 10.6 g/dL Low 14.0-18.0 [facility] INR in Platelet poor plasma by Coagulation assayon 10-14-2023 INR Coag (PPP) [Relative time] 1.11 {INR} [facility] Comment on above: DESIRED INR:2.0-3.0 CONDITIONS NOT LISTED BELOW2.5-3.5 FOR PROSTHETIC HEART VALVE REPLACEMENT2.5-3.5 RECURRENT THROMBOSIS Laboratory - Chemistry and C hemistry - challengeon 10-14-2023 Natriuretic peptide B (Bld) [Mass/Vol] 9227.0 pg/mL High <=1800.0 [facility] Comment on above: RESULTS CALLED TO KENDELL LOMBARDI/SHAREE IN ICU Calcium [Mass/Vol] 8.6 mg/dL 8.5-10.1 [facility] Chloride [Moles/Vol] 95 mmol/L Low 98-107 [facility] CO2 [Moles/Vol] 24.6 mmol/L 21.0-32.0 [facility] Creatinine [Mass/Vol] 0.97 mg/dL 0.70-1.30 [facility] GFR/1.73 sq M.predicted MDRD (S/P/Bld) [Vol rate/Area] mL/min/{1.73_m2} >=60 [facility] Glucose [Mass/Vol] 176 mg/dL High 74-106 [facility] Potassium [Moles/Vol] 4.1 mmol/L 3.5-5.1 [facility] Sodium [Moles/Vol] 130 mmol/L Low 136-145 [facility] Urea nitrogen [Mass/Vol] 20.0 mg/dL High 7.0-18.0 [facility] Urea nitrogen/Creatinine [Mass ratio] 20.6 mg/mg [facility] Laboratory - Hematology and Cell countson 10-14-2023 Immature granulocytes/100 WBC (Bld) 0.4 % 0.0-0.5 [facility] Leukocytes [#/volume] correc shyann for nucleated erythrocytes in Blood by Automated counon 10-14-2023 WBC corrected for nucl RBC Auto (Bld) [#/Vol] 15.7 10 3/uL High 4.0-11.0 [facility] Lymphocytes Auto (Bld) [#/Vo l]on 10-14-2023 Lymphocytes (Bld) [#/Vol] 1.4 10 3/uL 1.2-3.8 [facility] Lymphocytes/100 WBC Auto (Bl d)on 10-14-2023 Lymphocytes/100 WBC (Bld) 9.1 % Low 20.5-60.0 [facility] MCH Auto (RBC) [Entitic mass ]on 10-14-2023 MCH (RBC) [Entitic mass] 30.8 pg 25.9-34.0 [facility] MCHC Auto (RBC) [Mass/Vol]on 10-14-2023 MCHC (RBC) [Mass/Vol] 33.5 g/dL 29.9-35.2 [facility] MCV Auto (RBC) [Entitic vol] on 10-14-2023 MCV (RBC) [Entitic vol] 91.9 fL 80.0-94.0 [facility] Monocytes Auto (Bld) [#/Vol] on 10-14-2023 Monocytes (Bld) [#/Vol] 1.5 10 3/uL High 0.3-0.8 [facility] Monocytes/100 WBC Auto (Bld) on 10-14-2023 Monocytes/100 WBC (Bld) 9.6 % 1.7-12.0 [facility] Neutrophils Auto (Bld) [#/Vo l]on 10-14-2023 Neutrophils (Bld) [#/Vol] 12.7 10 3/uL High 1.4-6.5 [facility] Neutrophils/100 WBC Auto (Bl d)on 10-14-2023 Neutrophils/100 WBC (Bld) 80.7 % High 43.0-75.0 [facility] No Panel Informationon 10-13 Troponin I High Sensitivity 279.3 pg/mL High 4.0-76.1 [facility] Comment on above: RESULTS CALLED [...] Eosinophils # (Auto) 0.0 10 3/uL 0.0-0.7 [facility] Immature Granulocyte # (Auto) 0.07 10 3/uL High 0.00-0.03 [facility] Platelet mean volume Auto (B ld) [Entitic vol]on 10-14-2023 Platelet mean volume (Bld) [Entitic vol] 10.1 fL 9.5-13.5 [facility] Platelets Auto (Bld) [#/Vol] on 10-14-2023 Platelets (Bld) [#/Vol] 191 10 3/uL 150-450 [facility] Prothrombin time (PT)on PT Coag (PPP) [Time] 11.6 s 9.0-11.6 [facility] RBC Auto (Bld) [#/Vol]on RBC (Bld) [#/Vol] 3.44 10 6/uL Low 4.70-6.[address] [facility] Serum or plasma anion gap de terminationon 10-14-2023 Anion gap [Moles/Vol] 14.5 mmol/L [facility] ECH echo limitedon ECH echo limited [facility] [place] [address] Echocardiogram Signed Patient: Chico Baker MR#: [id number] : 1940 Acct:[id number] Age/Sex: 83 / M ADM Date: 08/31/23 Loc: Room: Type: [facility] Attending Dr: Sheri Christiansen MD Ordering Provider: Sheri Christiansen MD Date of Service: 08/31/23 [facility] echo limited: I35.0 - Nonrheumatic aortic [...] Judah Harrington MD 08/31/23 1723 Normal [facility] FPG ECG *CARDIOLOGY ONLY*on 08-19-2023 FPG ECG *CARDIOLOGY ONLY* [facility] Main [place] [id number] Electrocardiograph Report Signed Patient: Chico Baker MR#: [id number] : 1940 Acct:[id number] Age/Sex: 83 / M ADM Date: 08/19/23 Loc: [facility] Room: Type: [facility] Attending Dr: Sheri Christiansen MD Ordering [...] rhythm Normal ECG Confirmed by Sheri Christiansen ([id number]) on 08/20/2023 12:14:54 AM Referred By: Electronically Signed By:Sheri Christiansen Transcribed By: MUS Signed By Sheri Christiansen MD 4 0014 Normal [facility] CT angio abdomen pelvison CT angio abdomen pelvis [facility] Main [address] [address] [address] Scan Report Signed Patient: Chico Baker MR#: [id number] : 1940 Acct:[id number] Age/Sex: 83 / M ADM Date: 06/16/23 Loc: CT Room: Type: [facility] Attending Dr: Raul Quan MD Copies [...] aortic 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 The [place] aneurysmal sac is grossly unchanged in size [...] Payan Jr., Marvin06/16/2023 1:59 PM Dictation Location: [place] [address] Transcribed By: [facility] 06/16/23 1359 Dictated By: Woody Payan Jr, DO 06/16/23 1351 Signed By: 06/16/23 1359 Normal [facility] ISTAT XRay CREon 06-16-2023 ISTAT GFR > 60.0 Normal [facility] Comment on above: Result Comment: PERF ORMED BY: [place] [address] PATHOLOGIST [employer] ZENA CASTELLON M.D. Performed By: #### I SCRE #### [address] No Panel InformationOrdered By: Raul Quan on 06-16-2023 Bedside Estimated GFR (eGFR) > 60.0 [facility] Whole blood creatinine measu rementOrdered By: Raul Quan on 06-16-2023 Creatinine [Mass/Vol] 0.9 mg/dL Normal 0.6-1.3 [facility] Comment on above: ER/ESD physician is notified/shown all ISTAT results.Critical values may be confirmed by laboratory testing ifdeemed necessary by ER attending doctor. Result Comment: ER/E SD physician is notified/shown all ISTAT results. Critical values may be confirmed by laboratory testing if deemed necessary by ER attending doctor. Performed By: #### I SCRE #### [facility] [address] Calculus Analysison 05-12-19 24 Calcium oxalate dihydrate Infrared spectroscopy (Stone) [Mass fraction] 20 % Invalid Interpretation Code [facility] Comment on above: Performed By: #### 1 [id number] ####[facility] [address] [facility] [address] Calcium oxalate monohydrate (Stone) [Mass fraction] 80 % Invalid Interpretation Code [facility] Comment on above: Performed By: #### 1 [id number] ####[facility] [address] [facility] [address] Color (Stone) Brown Invalid Interpretation Code [facility] Comment on above: Performed By: #### 1 [id number] ####[facility] [address] [facility] [address] Composition Comment Invalid Interpretation Code [facility] Comment on above: Result Comment: Perc entage (Represents the % composition) Performed By: #### 1 [id number] ####[facility] [address] [facility] [address] Disclaimer: Comment Invalid Interpretation Code [facility] Comment on above: Result Comment: This test was developed and its performance characteristics determined by [employer]. It has not been cleared or approved by the Food and Drug Administration. Performed at: [address] [id number] Emanuel Silverman Performed By: #### 1 [id number] ####[facility] [address] [place] [address] Laboratory comment Daniel (Report) Comment Invalid Interpretation Code [facility] Comment on above: Result Comment: Mina aguilar questions regarding Calculi Analysis contact [facility] at: [phone]. Performed By: #### 1 [id number] ####[facility] [address] [place] [address] Please Note: Comment Invalid Interpretation Code [facility] Comment on above: Result Comment: Calc melissa report will follow via computer, mail or wet process technician delivery. Performed By: #### 1 [id number] ####[facility] [address] [place] [address] Size (Stone) [Entitic vol] 2x3 Invalid Interpretation Code [facility] Comment on above: Result Comment: Mult iple pieces received. Dimensions of the largest piece reported. Performed By: #### 1 [id number] ####[facility] [address] [place] [address] Specimen source subject Nom Comment Invalid Interpretation Code [facility] Comment on above: Result Comment: Not provided Performed By: #### 1 [id number] ####[facility] [address] [place] [address] Stone Photo Comment Invalid Interpretation Code [facility] Comment on above: Result Comment: Phot ograph will follow under a separate cover Performed By: #### 1 [id number] ####[facility] [address] [place] [address] Weight (Stone) 12 mg Invalid Interpretation Code [facility] Comment on above: Performed By: #### 1 [id number] ####[facility] [id number] [place] [address] Consent for Procedure/Surger yon 05-05-2023 Consent for Procedure/Surgery [id number]#1.00TIFF Normal [facility] RAD - MISCon 05-05-2023 RAD - MISC [id number]#1.00TIFF Normal [facility] Ambulatory Visit Summaryon 0 05-04-2023 [...] Ivelisse Hassan MD Where: [facility] Patient Educationon 05-04-19 Patient Education [...] ? 8 oz (237 mL) of milk, bvgyvqr-nkktihhbsozq-lafks milk, and calcium-fortifiedfruit juice. Calcium-fortified means that [...] Spinach (cooked), rhubarb, beets, sweet potatoes, and Scottish chard. ? Peanuts. ? Potato chips, montserratian fries, and baked potatoes with skin on. ? Nuts and nut products. ? Chocolate. ? If you regularly take a diuretic medicine, make sure to eat at least 1 or 2 servings of fruits or vegetables that are high in potassium each day. These include: ? Avocado. ? Banana. ? Irwin, prune, carrot, or tomato juice. ? Baked [...] fish oil, or vitamin B6. ? Take grnu-zto-eokdatd and prescription medicines only as told by your health care provider. These include supplements. What foods sh (more content not included)... [facility] RAD - MISCon 05-04-2023 RAD - MIS [id number]#1.00TIFF Kaushik Carmichael [facility] Urology Office/Clinic Noteon 05-04-2023 Urology [...] w/KUB. All questions/concern (more content not included)... [facility] Comment on above: Result Comment: Elec tronically Signed By: Mo LEIJA, Ivelisse Schreiber\.br\Date and Time Signed: 05/04/23 12:02 EST\.br\Electronically Co-Signed By: Eleonora Belcher\.br\Date and Time Co-Signed: 05/04/23 11:47 EST Operative Reporton Operative Report [id number]#1.00TIFF [facility] Physician Orderon 04-29-2023 Physician Order [id number]#1.00TIFF [facility] RAD - MISCon 04-28-2023 RAD - MISC [id number]#1.00TIFF [facility] Consultation Noteon 04-23-19 Consultation Note [id number]#1.00TIFF [facility] Formson 04-23-2023 Forms [id number]#1.00TIFF [facility] Consent for Procedure/Surger yon 04-21-2023 Consent for Procedure/Surgery [id number]#1.00TIFF Normal [facility] Lab Reportson 04-21-2023 Lab Reports [id number]#1.00TIFF Normal [facility] Lab Reports [id number]#1.00TIFF Normal [facility] Activated partial thrombopla stin time (aPTT) in platelet poor plasma by coagulation aon 04-20-2023 aPTT Coag (PPP) [Time] 32.6 s 22.3-36.2 [facility] Basophils Auto (Bld) [#/Vol] on 04-20-2023 Basophils (Bld) [#/Vol] 0.1 10 3/uL 0.0-0.1 [facility] Basophils/100 WBC Auto (Bld) on 04-20-2023 Basophils/100 WBC (Bld) 0.5 % 0.2-2.0 [facility] Eosinophils/100 WBC Auto (Bl d)on 04-20-2023 Eosinophils/100 WBC (Bld) 1.2 % 0.9-7.0 [facility] Erythrocyte distribution wid th Auto (RBC) [Ratio]on 04-20-2023 Erythrocyte distribution width (RBC) [Ratio] 12.4 % 11.0-15.0 [facility] Estimated glomerular filtrat ion rate (GFR) non- Americanon 04-20-2023 GFR/1.73 sq M.predicted among non-blacks MDRD (S/P/Bld) [Vol rate/Area] mL/min/{1.73_m2} >=60 [facility] Formson 04-20-2023 Forms [id number]#1.00TIFF [facility] Hematocrit Auto (Bld) [Volum e fraction]on 04-20-2023 Hematocrit (Bld) [Volume fraction] 36.7 % 42.0-54.0 [facility] Hemoglobin [Mass/volume] in Bloodon 04-20-2023 Hemoglobin (Bld) [Mass/Vol] 11.5 g/dL 14.0-18.0 [facility] INR in Platelet poor plasma by Coagulation assayon 04-20-2023 INR Coag (PPP) [Relative time] 1.01 {INR} [facility] Comment on above: DESIRED INR:2.0-3.0 CONDITIONS NOT LISTED BELOW2.5-3.5 FOR PROSTHETIC HEART VALVE REPLACEMENT2.5-3.5 RECURRENT THROMBOSIS Laboratory - Chemistry and C hemistry - challengeon 04-20-2023 Calcium [Mass/Vol] 9.0 mg/dL 8.5-10.1 [facility] Chloride [Moles/Vol] 104 mmol/L 98-107 [facility] CO2 [Moles/Vol] 28.9 mmol/L 21.0-32.0 [facility] Creatinine [Mass/Vol] 0.89 mg/dL 0.70-1.30 [facility] GFR/1.73 sq M.predicted MDRD (S/P/Bld) [Vol rate/Area] mL/min/{1.73_m2} >=60 [facility] Glucose [Mass/Vol] 133 mg/dL 74-106 [facility] Potassium [Moles/Vol] 4.6 mmol/L 3.5-5.1 [facility] Sodium [Moles/Vol] 140 mmol/L 136-145 [facility] Urea nitrogen [Mass/Vol] 15.0 mg/dL 7.0-18.0 [facility] Urea nitrogen/Creatinine [Mass ratio] 16.9 mg/mg [facility] Laboratory - Hematology and Cell countson 04-20-2023 Immature granulocytes/100 WBC (Bld) 0.3 % 0.0-0.5 [facility] Leukocytes [#/volume] correc shyann for nucleated erythrocytes in Blood by Automated counon 04-20-2023 WBC corrected for nucl RBC Auto (Bld) [#/Vol] 9.9 10 3/uL 4.0-11.0 [facility] Lymphocytes Auto (Bld) [#/Vo l]on 04-20-2023 Lymphocytes (Bld) [#/Vol] 1.1 10 3/uL 1.2-3.8 [facility] Lymphocytes/100 WBC Auto (Bl d)on 04-20-2023 Lymphocytes/100 WBC (Bld) 11.3 % 20.5-60.0 [facility] MCH Auto (RBC) [Entitic mass ]on 04-20-2023 MCH (RBC) [Entitic mass] 29.6 pg 25.9-34.0 [facility] MCHC Auto (RBC) [Mass/Vol]on 04-20-2023 MCHC (RBC) [Mass/Vol] 31.3 g/dL 29.9-35.2 [facility] MCV Auto (RBC) [Entitic vol] on 04-20-2023 MCV (RBC) [Entitic vol] 94.6 fL 80.0-94.0 [facility] Monocytes Auto (Bld) [#/Vol] on 04-20-2023 Monocytes (Bld) [#/Vol] 0.8 10 3/uL 0.3-0.8 [facility] Monocytes/100 WBC Auto (Bld) on 04-20-2023 Monocytes/100 WBC (Bld) 8.5 % 1.7-12.0 [facility] Neutrophils Auto (Bld) [#/Vo l]on 04-20-2023 Neutrophils (Bld) [#/Vol] 7.8 10 3/uL 1.4-6.5 [facility] Neutrophils/100 WBC Auto (Bl d)on 04-20-2023 Neutrophils/100 WBC (Bld) 78.2 % 43.0-75.0 [facility] No Panel Informationon 04-20 Eosinophils # (Auto) 0.1 10 3/uL 0.0-0.7 [facility] Immature Granulocyte # (Auto) 0.03 10 3/uL 0.00-0.03 [facility] Platelet mean volume Auto (B ld) [Entitic vol]on 04-20-2023 Platelet mean volume (Bld) [Entitic vol] 9.4 fL 9.5-13.5 [facility] Platelets Auto (Bld) [#/Vol] on 04-20-2023 Platelets (Bld) [#/Vol] 188 10 3/uL 150-450 [facility] Prothrombin time (PT)on 04-08 PT Coag (PPP) [Time] 10.7 s 9.0-11.6 [facility] RBC Auto (Bld) [#/Vol]on RBC (Bld) [#/Vol] 3.88 10 6/uL 4.70-6.[address] [facility] Serum or plasma anion gap de terminationon 04-20-2023 Anion gap [Moles/Vol] 11.7 mmol/L [facility] RAD - MISCon 04-08-2023 [facility] [id number]#1.00TIFF Normal [facility] Operative Reporton Operative Report [id number]#1.00TIFF Normal [facility] RAD - MISCon 03-25-2023 RAD - [facility] [id number]#1.00TIFF Normal [facility] Consent for Procedure/Surger yon 03-22-2023 Consent for Procedure/Surgery [id number]#1.00TIFF Normal [facility] Lab Reportson 03-19-2023 Lab Reports [id number]#1.00TIFF Normal [facility] RAD - MISCon 03-19-2023 [facility] [id number]#1.00TIFF Normal [facility] Reminderson 03-03-2023 Reminders - From: Faviola Clemens To: EU - Recalls Luamy; Sent: 01/13/2023 10:01:25 EST Show up: 02/12/2023 10:01:00 EST Subject: LINDSEY and KUB Due Date/Time: 02/12/2023 10:01:00 EST Pt to have LINDSEY and KUB done in March at [facility]. Orders placed. Possible ESWL pending size of stones. No follow up at this time. Pt to be called with results. Called pt and reminded him to complete LINDSEY/KUB @ [facility] in the next month. Orders were [...] RO Patient is scheduled for 03/24/22 @ [facility] Comment on above: Result Comment: Miss ing Attachment - attachment exceeds size limitation (02/19/2023) RAD - Ultrasound Report Can be viewed in source system Missing Attachment - attachment exceeds size limitation (02/19/2023) RAD - MISC Can be viewed in source system RAD - MISCon 02-22-2023 RAD - MISC [id number]#1.00TIFF [facility] RAD - Ultrasound Reporton RAD - Ultrasound Report [id number]#1.00TIFF [facility] Screenson 01-14-2023 Screens [id number]#1.00TIFF [facility] Screens [id number]#1.00TIFF [facility] Patient Educationon 01-14-20 Patient Education Urology [...] Follow these instructions at home: ? Take bvvm-tgd-iaspicc and prescription medicines only as told by [...] the medicine (more content not included)... [facility] Urology Office/Clinic Noteon 01-13-2023 Urology Office/Clinic [...] with voice recognition artificial intelligence software, specifically [employer], [employer] and or [employer]ormo. Substitutions may have occurred due to the inherent limitations of voice recognition and artificial intelligence software. 1. BPH with obstruction/lower urinary tract symptoms (N40.1: Benign prostatic hyperplasia with lower urinary tract symptoms) hx TURP by [facility] 2019, prostate small on 05/11/22 CT scan [...] stones no (more content not included)... [facility] Comment on above: Result Comment: Elec tronically Signed By: Mo LEIJA, Ivelisse Schreiber\.br\Date and Time Signed: 01/13/23 16:25 EST\.br\Electronically Co-Signed By: Faviola Clemens\.br\Date and Time Co-Signed: 01/13/23 09:59 EST [facility] 10-08-2022 Screens [id number]#1.00CD:127 Normal [facility] Screens [id number]#1.00CD:127 Normal [facility] Ambulatory Visit Summaryon 0 10-07-2022 Ambulatory Visit Summary CHICO BAKER :1940 Visit Date:10/07/2022 Ambulatory Visit Instructions Your Diagnosis BPH with obstruction/lower urinary tract symptoms History of kidney stones Asymptomatic microscopic hematuria 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 Tests Performed Urnls Dip Stick Auto w/o Microscopy POC 19492 Your Care Team Attending Physician - Ivelisse [...] [facility] Normal [facility] Patient Educationon 10-08-19 Patient Education Urology [...] Follow these instructions at home: ? Take mahf-ohc-ojczewy and prescription medicines only as told by [...] the medicine (more content not included)... [facility] Urology Office/Clinic Noteon 10-07-2022 Urology Office/Clinic [...] neg, s (more content not included)... [facility] Comment on above: Result Comment: Elec tronically Signed By: Mo LEIJA, Ivelisse Schreiber\.br\Date and Time Signed: 10/07/22 10:28 EDT\.br\Electronically Co-Signed By: Eleonora Belcher\.br\Date and Time Co-Signed: 10/07/22 09:25 EDT Consent for Procedure/Surger yon 07-29-2022 Consent for Procedure/Surgery [id number]#1.00CD:127 [facility] Patient Educationon 07-29-19 Patient Education Urology [...] these instructions at home: Medicines ? Take mxjo-ztc-kskeqlx and prescription medicines only as told by [...] include cig (more content not included)... [facility] Urology Office/Clinic Noteon 07-28-2022 Urology Office/Clinic [...] urine The Urethra was dilated to: 16-24 Finnish with connor sounds without difficulty Soft 14 [...] (erectile d (more content not included)... [facility] Comment on above: Result Comment: Elec tronically Signed By: Mo LEIJA, Ivelisse Schreiber\.br\Date and Time Signed: 07/28/22 10:49 EDT\.br\Electronically Co-Signed By: Clarissa Joaquin MA\.br\Date and Time Co-Signed: 07/28/22 10:28 EDT Blood activated clotting sue e by coagulation assayOrdered By: Raul Quan on 07-08-2022 ACT Coag (Bld) 335 s 90-139 [facility] Comment on above: Reference Range: 90- 139 (Non-heparinized) Laboratory - CoagulationOrde red By: Raul Quan on 07-08-2022 PT Coag (PPP) [Time] 11.7 s 9.0-12.9 [facility] Platelet poor plasma interna tional normalized ratio (INR) by coagulation assay (relatOrdered By: Raul Quan on 07-08-2022 INR Coag (PPP) [Relative time] 1.0 {INR} [facility] Comment on above: INR Therapeutic [...] 07-01-2022 ALT [Catalytic activity/Vol] 9 U/L 7-52 [facility] Albumin [Mass/volume] in Ser um or Plasma by Bromocresol green (BCG) dye binding methoOrdered By: Raul Quan on 07-01-2022 Albumin BCG dye [Mass/Vol] 3.7 g/dL 3.5-5.7 [facility] Alkaline phosphatase [Enzyma tic activity/volume] in Serum or PlasmaOrdered By: Raul Quan on 07-01-2022 ALP [Catalytic activity/Vol] 96 U/L 34-104 [facility] Aspartate aminotransferase [ Enzymatic activity/volume] in Serum or PlasmaOrdered By: Raul Quan on 07-01-2022 AST [Catalytic activity/Vol] 14 U/L 13-39 [facility] Basophils Auto (Bld) [#/Vol] Ordered By: Raul Quan on 07-01-2022 Basophils (Bld) [#/Vol] 0.1 10*3/uL 0.0-0.2 [facility] Basophils/100 WBC Auto (Bld) Ordered By: Raul Quan on 07-01-2022 Basophils/100 WBC (Bld) 0.7 % . [facility] Bilirubin.total [Mass/volume ] in Serum or PlasmaOrdered By: Raul Quan on 07-01-2022 Bilirubin [Mass/Vol] 0.5 mg/dL 0.3-1.0 [facility] Calcium [Mass/volume] in Ser um or PlasmaOrdered By: Raul Quan on 07-01-2022 Calcium [Mass/Vol] 8.5 mg/dL 8.6-10.3 [facility] Carbon dioxide, total [Moles /volume] in Serum or PlasmaOrdered By: Raul Quan on 07-01-2022 CO2 [Moles/Vol] 24.6 mmol/L 21.0-31.0 [facility] Chloride [Moles/volume] in S aisha or PlasmaOrdered By: Raul Quan on 07-01-2022 Chloride [Moles/Vol] 100 mmol/L 98-107 [facility] Creatinine [Mass/volume] in Serum or PlasmaOrdered By: Raul Quan on 07-01-2022 Creatinine [Mass/Vol] 0.87 mg/dL 0.70-1.30 [facility] Eosinophils Auto (Bld) [#/Vo l]Ordered By: Raul Quan on 07-01-2022 Eosinophils (Bld) [#/Vol] 0.1 10*3/uL 0.0-0.45 [facility] Eosinophils/100 WBC Auto (Bl d)Ordered By: Raul Quan on 07-01-2022 Eosinophils/100 WBC (Bld) 1.5 % . [facility] Erythrocyte distribution wid th Auto (RBC) [Ratio]Ordered By: Raul Quan on 07-01-2022 Erythrocyte distribution width (RBC) [Ratio] 13.0 % 12.0-14.8 [facility] Globulin Calc (S) [Mass/Vol] Ordered By: Raul Quan on 07-01-2022 Globulin (S) [Mass/Vol] 3.4 g/dL [facility] Glucose [Mass/volume] in Ser um or PlasmaOrdered By: Raul Quan on 07-01-2022 Glucose [Mass/Vol] 163 mg/dL 70-100 [facility] Comment on above: ADA recommended refe rence rangeRandom Glucose Reference Range is dependent on time and content of last meal. Glucose of more than 200 mg/dL in a nonstressed, ambulatory subject supports the diagnosis of Diabetes Mellitus. Hematocrit Auto (Bld) [Volum e fraction]Ordered By: Raul Quan on 07-01-2022 Hematocrit (Bld) [Volume fraction] 36.4 % 38.8-50.0 [facility] Hemoglobin [Mass/volume] in BloodOrdered By: Raul Quan on 07-01-2022 Hemoglobin (Bld) [Mass/Vol] 12.1 g/dL 13.0-17.0 [facility] Leukocytes [#/volume] correc shyann for nucleated erythrocytes in Blood by Automated counOrdered By: Raul Quan on 07-01-2022 WBC corrected for nucl RBC Auto (Bld) [#/Vol] 8.5 10*3/uL 4.1-10.5 [facility] Lymphocytes Auto (Bld) [#/Vo l]Ordered By: Raul Quan on 07-01-2022 Lymphocytes (Bld) [#/Vol] 1.6 10*3/uL 1.00-4.8 [facility] Lymphocytes/100 WBC Auto (Bl d)Ordered By: Raul Quan on 07-01-2022 Lymphocytes/100 WBC (Bld) 19.3 % . [facility] MCH Auto (RBC) [Entitic mass ]Ordered By: Raul Quan on 07-01-2022 MCH (RBC) [Entitic mass] 30.2 pg 27.5-35.2 [facility] MCHC Auto (RBC) [Mass/Vol]Or dered By: Raul Quan on 07-01-2022 MCHC (RBC) [Mass/Vol] 33.3 g/dL 32.5-35.6 [facility] MCV Auto (RBC) [Entitic vol] Ordered By: Raul Qaun on 07-01-2022 MCV (RBC) [Entitic vol] 90.7 fL 83.5-101 [facility] Monocytes Auto (Bld) [#/Vol] Ordered By: Raul Quan on 07-01-2022 Monocytes (Bld) [#/Vol] 0.9 10*3/uL 0.0-0.8 [facility] Monocytes/100 WBC Auto (Bld) Ordered By: Raul Quan on 07-01-2022 Monocytes/100 WBC (Bld) 11.1 % . [facility] Neutrophils Auto (Bld) [#/Vo l]Ordered By: Raul Quan on 07-01-2022 Neutrophils (Bld) [#/Vol] 5.7 10*3/uL 1.8-7.7 [facility] Neutrophils/100 WBC Auto (Bl d)Ordered By: Raul Quan on 07-01-2022 Neutrophils/100 WBC (Bld) 67.4 % . [facility] No Panel InformationOrdered By: Raul Quan on 07-01-2022 Estimated GFR (CKD-EPI) > 60.0 mL/Min [facility] Pharmacy Creatinine Clearance (Chem N/A [facility] Nucleated erythrocytes [Pres ence] in Blood by Automated countOrdered By: Raul Quan on 07-01-2022 Nucleated RBC Auto Ql (Bld) 0.0 /100{WBC} 0-0.5 [facility] Platelet mean volume Auto (B ld) [Entitic vol]Ordered By: Raul Quan on 07-01-2022 Platelet mean volume (Bld) [Entitic vol] 7.6 fL 6.6-10.1 [facility] Platelets Auto (Bld) [#/Vol] Ordered By: Raul Quan on 07-01-2022 Platelets (Bld) [#/Vol] 198 10*3/uL 150-450 [facility] Potassium [Moles/volume] in Serum or PlasmaOrdered By: Raul Quan on 07-01-2022 Potassium [Moles/Vol] 4.4 mmol/L 3.5-5.1 [facility] Protein [Mass/volume] in Ser um or PlasmaOrdered By: Raul Quan on 07-01-2022 Protein [Mass/Vol] 7.1 g/dL 6.4-8.9 [facility] RBC Auto (Bld) [#/Vol]Ordere d By: Raul Quan on 07-01-2022 RBC (Bld) [#/Vol] 4.01 10*6/uL 3.90-5.[address] [facility] Serum or plasma albumin/glob ulin mass ratioOrdered By: Raul Quan on 07-01-2022 Albumin/Globulin [Mass ratio] 1.1 {ratio} [facility] Serum or plasma anion gap de terminationOrdered By: Raul Quan on 07-01-2022 Anion gap [Moles/Vol] 13.8 mmol/L 6.0-15.0 [facility] Sodium [Moles/volume] in Ser um or PlasmaOrdered By: Raul Quan on 07-01-2022 Sodium [Moles/Vol] 134 mmol/L 136-145 [facility] Urea nitrogen [Mass/volume] in Serum or PlasmaOrdered By: Raul Quan on 07-01-2022 Urea nitrogen [Mass/Vol] 17 mg/dL 7-25 [facility] WBC Auto (Bld) [#/Vol]Ordere d By: Raul Quan on 07-01-2022 WBC (Bld) [#/Vol] 8.5 10*3/uL 4.1-10.5 [facility] Patient Educationon 06-25-19 Patient Education Urology [...] these instructions at home: Medicines ? Take dado-had-lnalopg and prescription medicines only as told by [...] the blood stops without treatment. ? Take xqmu-gle-odtoyjp and prescription medicines only as told by your health care provider. ? Drink enough fluid to keep your urine pale yellow. This information is not intended to replace advice given to you by your health care provider. Make sure you discuss any questions you have with your health care provider. Document Revised: 10/23/2020 Document Reviewed: 10/23/2020 [employer] Patient Education ? 2022 [employer] Normal [facility] Screenson 06-24-2022 Screens [id number]#1.00CD:127 Normal [facility] Screens [id number]#1.00CD:127 [facility] Urology Office/Clinic Noteon 06-24-2022 Urology Office/Clinic [...] Urnls Dip Stick Auto w/o Microscopy POC 71662 Urology Procedure Order 4. Penile rash (R21: Rash and other nonspecific skin eruption) Pt states rash has completely cleared up after stopping Bactrim. Denies irritation. Head of penis is not red, but is discolored. Not bothersome. D/c use of cream. Resolved Ordered: Urology Procedure Order 5. ED (erectile dysfunction) (N52.9: Male erectile dysfunction, unspecified) (more content not included)... [facility] Comment on above: Result Comment: Elec tronically Signed By: Mo LEIJA, Ivelisse Schreiber\.br\Date and Time Signed: 06/24/22 10:24 EDT RAD - CT Reporton 05-14-2022 RAD - CT Report [id number]#1.00CD:127 [facility] Creatinine (Bld) [Mass/Vol]O rdered By: Raul Quan on 05-11-2022 Creatinine [Mass/Vol] 0.9 mg/dL 0.6-1.3 [facility] Comment on above: ER/ESD physician is notified/shown all ISTAT results.Critical values may be confirmed by laboratory testing ifdeemed necessary by ER attending doctor. No Panel InformationOrdered By: Raul Quan on 05-11-2022 POC Estimated GFR > 60 [facility] Comment on above: GFR estimated refere nce range: According to KDOQI guidelines, <60 ml/min/1.73m2 is sufficient to diagnose a patient with chronic kidney disease. POC Estimated GFR Non- Amer > 60 [facility] URINALYSISOrdered By: Kirstie sanchez on [...] Interpretation Code Negative [facility] UA Auto SS [place].plasma/[place] .RBC (Bld) [Mass ratio] 21-30 /HPF Invalid [...] [facility] UA Auto SS Urobilinogen Qn (U) 0.1600818 {Nikki'U}/dL Normal 0.0 - 1.0 EU/dL [facility] [...] Interpretation Code Negative [facility] UA Auto SS [place].plasma/[place] .RBC (Bld) [Mass ratio] 4-20 /HPF Normal 0-3/HPF [facility] UA Auto SS Nitrite Ql (U) Negative (02/11/22 10:38 AM) Normal Negative [facility] UA Auto SS pH (U) 5.5 *NA* (02/11/22 10:38 AM) Invalid Interpretation Code 5.0 - 9.0 [facility] UA Auto SS Protein (U) [Mass/Vol] Negative (02/11/22 10:38 AM) Normal Negative [facility] UA Auto SS Specific gravity (U) [Rel density] 1.020 *NA* (02/11/22 10:38 AM) Invalid Interpretation Code 1.005 - 1.030 [facility] UA Auto SS UA Spec Desc Random Urine (02/11/22 10:38 AM) Normal [facility] UA Auto SS Urobilinogen Qn (U) 0.6065112 {Nikki'U}/dL Normal 0.0 - 1.0 EU/dL [facility] UA Auto SS WBC Auto Ql (U) 1+ *ABN* (02/11/22 10:38 AM) Invalid Interpretation Code Negative FT UA Auto SS WBC LM.HPF (Urine sed) [#/Area] 0-5 /HPF Normal 0-5/HPF FT UA Auto SS Basophils Auto (Bld) [#/Vol] Ordered By: Raul Quan on 02-05-2022 Basophils (Bld) [#/Vol] 0.1 10*3/uL 0.0-0.2 [facility] Basophils/100 WBC Auto (Bld) Ordered By: Raul Quan on 02-05-2022 Basophils/100 WBC (Bld) 0.6 % . [facility] Creatinine and Glomerular fi ltration rate.predicted panel (S/P/Bld)Ordered By: Raul Quan on 02-05-2022 Creatinine [Mass/Vol] 0.94 mg/dL 0.64-1.27 [facility] Eosinophils Auto (Bld) [#/Vo l]Ordered By: Raul Quan on 02-05-2022 Eosinophils (Bld) [#/Vol] 0.1 10*3/uL 0.0-0.45 [facility] Eosinophils/100 WBC Auto (Bl d)Ordered By: Raul Quan on 02-05-2022 Eosinophils/100 WBC (Bld) 0.7 % . [facility] Erythrocyte distribution wid th Auto (RBC) [Ratio]Ordered By: Raul Quan on 02-05-2022 Erythrocyte distribution width (RBC) [Ratio] 13.8 % 12.0-14.8 [facility] Estimated glomerular filtrat ion rate (GFR) non- AmericanOrdered By: Raul Quan on 02-05-2022 GFR/1.73 sq M.predicted among non-blacks MDRD (S/P/Bld) [Vol rate/Area] > 60 mL/Min [facility] Hematocrit Auto (Bld) [Volum e fraction]Ordered By: Raul Quan on 02-05-2022 Hematocrit (Bld) [Volume fraction] 34.6 % 38.8-50.0 [facility] Hemoglobin [Mass/volume] in BloodOrdered By: Raul Quan on 02-05-2022 Hemoglobin (Bld) [Mass/Vol] 11.4 g/dL 13.0-17.0 [facility] Leukocytes [#/volume] correc shyann for nucleated erythrocytes in Blood by Automated counOrdered By: Raul Quan on 02-05-2022 WBC corrected for nucl RBC Auto (Bld) [#/Vol] 10.3 10*3/uL 4.1-10.5 [facility] Lymphocytes Auto (Bld) [#/Vo l]Ordered By: Raul Quan on 02-05-2022 Lymphocytes (Bld) [#/Vol] 1.5 10*3/uL 1.00-4.8 [facility] Lymphocytes/100 WBC Auto (Bl d)Ordered By: Raul Quan on 02-05-2022 Lymphocytes/100 WBC (Bld) 14.4 % . [facility] MCH Auto (RBC) [Entitic mass ]Ordered By: Raul Quan on 02-05-2022 MCH (RBC) [Entitic mass] 30.1 pg 27.5-35.2 [facility] MCHC Auto (RBC) [Mass/Vol]Or dered By: Raul Quan on 02-05-2022 MCHC (RBC) [Mass/Vol] 32.9 g/dL 32.5-35.6 [facility] MCV Auto (RBC) [Entitic vol] Ordered By: Raul Quan on 02-05-2022 MCV (RBC) [Entitic vol] 91.6 fL 83.5-101 [facility] Monocytes Auto (Bld) [#/Vol] Ordered By: Raul Quan on 02-05-2022 Monocytes (Bld) [#/Vol] 1.5 10*3/uL 0.0-0.8 [facility] Monocytes/100 WBC Auto (Bld) Ordered By: Raul Quan on 02-05-2022 Monocytes/100 WBC (Bld) 14.8 % . [facility] Neutrophils Auto (Bld) [#/Vo l]Ordered By: Raul Quan on 02-05-2022 Neutrophils (Bld) [#/Vol] 7.1 10*3/uL 1.8-7.7 [facility] Neutrophils/100 WBC Auto (Bl d)Ordered By: Raul Quan on 02-05-2022 Neutrophils/100 WBC (Bld) 69.5 % . [facility] No Panel InformationOrdered By: Raul Quan on 02-05-2022 Estimated GFR () > 60 mL/Min [facility] Comment on above: GFR estimated refere nce range: According to KDOQI guidelines, <60 ml/min/1.73m2 is sufficient to diagnose a patient with chronic kidney disease. Pharmacy Creatinine Clearance (Chem 57.50 [facility] Nucleated erythrocytes [Pres ence] in Blood by Automated countOrdered By: Raul Quan on 02-05-2022 Nucleated RBC Auto Ql (Bld) 0.1 /100{WBC} 0-0.5 [facility] Platelet mean volume Auto (B ld) [Entitic vol]Ordered By: Raul Quan on 02-05-2022 Platelet mean volume (Bld) [Entitic vol] 7.9 fL 6.6-10.1 [facility] Platelets Auto (Bld) [#/Vol] Ordered By: Raul Quan on 02-05-2022 Platelets (Bld) [#/Vol] 142 10*3/uL 150-450 [facility] Comment on above: Delta: 198 on RBC Auto (Bld) [#/Vol]Ordere d By: Raul Quan on 02-05-2022 RBC (Bld) [#/Vol] 3.77 10*6/uL 3.90-5.[address] [facility] Serum or plasma anion gap de terminationOrdered By: Raul Quan on 02-05-2022 Anion gap [Moles/Vol] 10.4 mmol/L 6.0-15.0 [facility] Serum or plasma calcium richy urement (mass/volume)Ordered By: Raul Quan on 02-05-2022 Calcium [Mass/Vol] 8.4 mg/dL 8.2-10.2 [facility] Serum or plasma chloride young surement (moles/volume)Ordered By: Raul Quan on 02-05-2022 Chloride [Moles/Vol] 101 mmol/L 95-114 [facility] Serum or plasma glucose richy urement (mass/volume)Ordered By: Raul Quan on 02-05-2022 Glucose [Mass/Vol] 109 mg/dL 70-100 [facility] Comment on above: ADA recommended refe rence rangeRandom Glucose Reference Range is dependent on time and content of last meal. Glucose of more than 200 mg/dL in a nonstressed, ambulatory subject supports the diagnosis of Diabetes Mellitus. Serum or plasma potassium me asurement (moles/volume)Ordered By: Raul Quan on 02-05-2022 Potassium [Moles/Vol] 4.6 mmol/L 3.5-5.1 [facility] Serum or plasma sodium measu rement (moles/volume)Ordered By: Raul Quan on 02-05-2022 Sodium [Moles/Vol] 135 mmol/L 136-146 [facility] Serum or plasma total carbon dioxide measurement (moles/volume)Ordered By: Raul Quan on 02-05-2022 CO2 [Moles/Vol] 28.2 mmol/L 22.0-30.0 [facility] Serum or plasma urea nitroge n measurement (mass/volume)Ordered By: Raul Quan on 02-05-2022 Urea nitrogen [Mass/Vol] 11 mg/dL 9- [facility] WBC Auto (Bld) [#/Vol]Ordere d By: Raul Quan on 02-05-2022 WBC (Bld) [#/Vol] 10.3 10*3/uL 4.1-10.[address] [facility] Covid-19 PCR (CVDTB)on 01-07 SARS-CoV-2 (COVID-19) RNA JESSIE+probe Ql (Unsp spec) Not detected Normal NOT DETECTED [facility] Comment on above: Result Comment: This test is not yet approved or cleared by the [place] FDA. When there are no FDA-approved or cleared tests available, and other criteria are met, FDA can make tests available under an emergency access mechanism called an Emergency Use Authorization (EUA). The EUA for this test is supported by the Psychiatric Therapist of Health and Human Service's (HHS's) declaration [...] SARS-CoV-2. Performed By: #### C VDTB #### [facility] [address] [place] [address] Dr. Jodi Roman CBC AUTO DIFFon 12-08-2021 BASO # 0.1 103/ul Normal 0.0-0.1 [facility] Comment on above: Performed By: #### D ATA1C #### [facility] [address] [address] [address] Jodi Roman Basophils/100 WBC (Bld) 0.5 % Normal 0.2-2.0 [facility] Comment on above: Performed By: #### D ATA1C #### [facility] [address] [address] [address] Jodi Roman EO # 0.1 103/ul Normal 0.0-0.7 [facility] Comment on above: Performed By: #### D ATA1C #### [facility] [address] [address] [address] Jodi Roman Eosinophils/100 WBC (Bld) 1.4 % Normal 0.9-7.0 [facility] Comment on above: Performed By: #### D ATA1C #### [facility] [address] [address] [address] Jodi Roman Erythrocyte distribution width (RBC) [Ratio] 13.0 % Normal 11.0-15.0 [facility] Comment on above: Performed By: #### D ATA1C #### [facility] [address] [place] [address] Dr. Jodi Roman Hematocrit (Bld) [Volume fraction] 36.1 % Critically low 42.0-54.0 [facility] Comment on above: Performed By: #### D ATA1C #### [facility] [address] [address] [address] Jodi Roman Hemoglobin (Bld) [Mass/Vol] 11.2 g/dL Critically low 14.0-18.0 [facility] Comment on above: Performed By: #### D ATA1C #### [facility] [address] [address] [address] Jodi Roman IG # 0.04 10e3/ul Critically high 0.00-0.03 [facility] Comment on above: Performed By: #### D ATA1C #### [facility] [address] [address] [address] Jodi Roman IG % 0.4 % Normal 0.0-0.5 [facility] Comment on above: Performed By: #### D ATA1C #### [facility] [address] [address] [address] Jodi Roman LYMPH # 1.8 103/ul Normal 1.2-3.8 [facility] Comment on above: Performed By: #### D ATA1C #### [facility] [address] [place] [address] Dr. Jodi Roman Lymphocytes/100 WBC (Bld) 17.2 % Critically low 20.5-60.0 [facility] Comment on above: Performed By: #### D ATA1C #### [facility] [address] [place] [address] Dr. Jodi Roman MANUAL DIFF REQ NO Normal [facility] Comment on above: Performed By: #### D ATA1C #### [facility] [address] [place] [address] Dr. Jodi Roman MCH (RBC) [Entitic mass] 30.4 pg Normal 25.9-34.0 [facility] Comment on above: Performed By: #### D ATA1C #### [facility] [address] [place] [address] Dr. Jodi Roman MCHC (RBC) [Mass/Vol] 31.0 g/dL Normal 29.9-35.2 [facility] Comment on above: Performed By: #### D ATA1C #### [facility] [address] [place] [address] Dr. Jodi Roman MCV (RBC) [Entitic vol] 98.1 fL Critically high 80.0-94.0 [facility] Comment on above: Performed By: #### D ATA1C #### [facility] [address] [place] [address] Dr. Jodi Roman MONO # 1.0 103/ul Critically high 0.3-0.8 [facility] Comment on above: Performed By: #### D ATA1C #### [facility] [address] [address] [address] Jodi Roman Monocytes/100 WBC (Bld) 9.8 % Normal 1.7-12.0 [facility] Comment on above: Performed By: #### D ATA1C #### [facility] [address] [address] [address] Jodi Roman NEUT # 7.3 103/ul Critically high 1.4-6.5 [facility] Comment on above: Performed By: #### D ATA1C #### [facility] [address] [address] [address] Jodi Roman Neutrophils/100 WBC (Bld) 70.7 % Normal 43.0-75.0 [facility] Comment on above: Performed By: #### D ATA1C #### [facility] [address] [place] [address] Dr. Jodi Roman Platelet mean volume (Bld) [Entitic vol] 9.1 fL Critically low 9.5-13.5 [facility] Comment on above: Performed By: #### D ATA1C #### [facility] [address] [address] [address] Jodi Roman PLT 214 103/ul Normal 150-450 [facility] Comment on above: Performed By: #### D ATA1C #### [facility] [address] [place] [address] Dr. Jodi Roman RBC 3.68 106/ul Critically low 4.70-6.10 [facility] Comment on above: Performed By: #### D ATA1C #### [facility] [address] [place] [address] Dr. Jodi Roman WBC 10.3 103/ul Normal 4.0-11.0 [facility] Comment on above: Performed By: #### D ATA1C #### [facility] [address] [address] [address] Jodi Roman PROF CHEM 8 (BAS METB)on Anion gap [Moles/Vol] 9.7 mmol/L Normal [facility] Comment on above: Performed By: #### C BC #### [facility] [address] [address] [address] Jodi Roman Calcium [Mass/Vol] 8.9 mg/dL Normal 8.5-10.1 [facility] Comment on above: Performed By: #### C BC #### [facility] [address] [address] [address] Jodi Roman Chloride [Moles/Vol] 102 mmol/L Normal 98-107 [facility] Comment on above: Performed By: #### C BC #### [facility] [address] [place] [address] Dr. Jodi Roman CO2 [Moles/Vol] 31.0 mmol/L Normal 21.0-32.0 [facility] Comment on above: Performed By: #### C BC #### [facility] [address] [place] [address] Dr. Jodi Roman Creatinine [Mass/Vol] 0.85 mg/dL Normal 0.70-1.30 [facility] Comment on above: Performed By: #### C BC #### [facility] [address] [place] [address] Dr. Jodi Roman EGFR-AF YEMENI >60 Normal >=60 [facility] Comment on above: Performed By: #### C BC #### [facility] [address] [place] [address] Dr. Jodi Roman EGFR-NON AF YEMENI >60 Normal >=60 [facility] Comment on above: Performed By: #### C BC #### [facility] [address] [place] [address] Dr. Jodi Roman Glucose [Mass/Vol] 106 mg/dL Normal 74-106 [facility] Comment on above: Performed By: #### C BC #### [facility] [address] [place] [address] Dr. Jodi Roman Potassium [Moles/Vol] 4.7 mmol/L Normal 3.5-5.1 [facility] Comment on above: Performed By: #### C BC #### [facility] [address] [place] [address] Dr. Jodi Roman Sodium [Moles/Vol] 138 mmol/L Normal 136-145 [facility] Comment on above: Performed By: #### C BC #### [facility] [address] [address] [address] Jodi Roman Urea nitrogen [Mass/Vol] 14.0 mg/dL Normal 7.0-18.0 [facility] Comment on above: Performed By: #### C BC #### [facility] [id number] Jodi Roman Urea nitrogen/Creatinine [Mass ratio] 16.5 mg/mg Normal [facility] Comment on above: Performed By: #### C BC #### [facility] [id number] Jodi Roman XR CHEST 2 Von [...] ROCIO RICARDO Date: 2021-12-08 16:20 Normal [facility] Covid-19 PCR (CVDTB)on 11-07 SARS-CoV-2 (COVID-19) RNA JESSIE+probe Ql (Unsp spec) Not detected Normal NOT DETECTED [facility] Comment on above: Result Comment: This test is not yet approved or cleared by the [place] FDA. When there are no FDA-approved or cleared tests available, and other criteria are met, FDA can make tests available under an emergency access mechanism called an Emergency Use Authorization (EUA). The EUA for this test is supported by the Psychiatric Therapist of Health and Human Service's (HHS's) declaration [...] SARS-CoV-2. Performed By: #### C VDTB #### [facility] [address] [place] [address] Dr. Jodi Roman CBC AUTO DIFFon 11-11-2021 BASO # 0.1 103/ul Normal 0.0-0.1 [facility] Comment on above: Performed By: #### C BC #### [facility] [address] [place] [address] Dr. Jodi Roman Basophils/100 WBC (Bld) 0.5 % Normal 0.2-2.0 [facility] Comment on above: Performed By: #### C BC #### [facility] [address] [place] [address] Dr. Jodi Roman EO # 0.2 103/ul Normal 0.0-0.7 [facility] Comment on above: Performed By: #### C BC #### [facility] [address] [place] [address] Dr. Jodi Roman Eosinophils/100 WBC (Bld) 1.9 % Normal 0.9-7.0 [facility] Comment on above: Performed By: #### C BC #### [facility] [address] [place] [address] Dr. Jodi Roman Erythrocyte distribution width (RBC) [Ratio] 13.6 % Normal 11.0-15.0 [facility] Comment on above: Performed By: #### C BC #### [facility] [address] [place] [address] Dr. Jodi Roman Hematocrit (Bld) [Volume fraction] 28.6 % Critically low 42.0-54.0 [facility] Comment on above: Performed By: #### C BC #### [facility] [address] [place] [address] Dr. Jodi Roman Hemoglobin (Bld) [Mass/Vol] 9.4 g/dL Critically low 14.0-18.0 [facility] Comment on above: Performed By: #### C BC #### [facility] [address] [place] [address] Dr. Jodi Roman IG # 0.08 10e3/ul Critically high 0.00-0.03 [facility] Comment on above: Performed By: #### C BC #### [facility] [address] [place] [address] Dr. Jodi Roman IG % 0.8 % Critically high 0.0-0.5 [facility] Comment on above: Performed By: #### C BC #### [facility] [address] [place] [address] Dr. Jodi Roman LYMPH # 1.3 103/ul Normal 1.2-3.8 [facility] Comment on above: Performed By: #### C BC #### [facility] [address] [place] [address] Dr. Jodi Roman Lymphocytes/100 WBC (Bld) 13.0 % Critically low 20.5-60.0 [facility] Comment on above: Performed By: #### C BC #### [facility] [address] [place] [address] Dr. Jodi Roman MANUAL DIFF REQ NO Normal [facility] Comment on above: Performed By: #### C BC #### [facility] [address] [place] [address] Dr. Jodi Roman MCH (RBC) [Entitic mass] 31.5 pg Normal 25.9-34.0 [facility] Comment on above: Performed By: #### C BC #### [facility] [address] [place] [address] Dr. Jodi Roman MCHC (RBC) [Mass/Vol] 32.9 g/dL Normal 29.9-35.2 [facility] Comment on above: Performed By: #### C BC #### [facility] [address] [place] [address] Dr. Jodi Roman MCV (RBC) [Entitic vol] 96.0 fL Critically high 80.0-94.0 [facility] Comment on above: Performed By: #### C BC #### [facility] [address] [place] [address] Dr. Jodi Roman MONO # 1.1 103/ul Critically high 0.3-0.8 [facility] Comment on above: Performed By: #### C BC #### [facility] [address] [place] [address] Dr. Jodi Roman Monocytes/100 WBC (Bld) 10.7 % Normal 1.7-12.0 [facility] Comment on above: Performed By: #### C BC #### [facility] [address] [place] [address] Dr. Jodi Roman NEUT # 7.4 103/ul Critically high 1.4-6.5 [facility] Comment on above: Performed By: #### C BC #### [facility] [address] [place] [address] Dr. Jodi Roman Neutrophils/100 WBC (Bld) 73.1 % Normal 43.0-75.0 [facility] Comment on above: Performed By: #### C BC #### [facility] [address] [place] [address] Dr. Jodi Roman Platelet mean volume (Bld) [Entitic vol] 9.3 fL Critically low 9.5-13.5 [facility] Comment on above: Performed By: #### C BC #### [facility] [address] [place] [address] Dr. Jodi Roman PLT 288 103/ul Normal 150-450 [facility] Comment on above: Performed By: #### C BC #### [facility] [address] [place], [place] [id number] Dr. Jodi Roman RBC 2.98 106/ul Critically low 4.70-6.10 [facility] Comment on above: Performed By: #### C BC #### [facility] [address] [place] [address] Dr. Jodi Roman WBC 10.1 103/ul Normal 4.0-11.0 [facility] Comment on above: Performed By: #### C #### [facility] [address] [address] ABD/PELVIS WO CONon [...] TAYO CASTILLO Date: 2021-11-11 03:10 Normal [facility] Covid-19 PCR (CVDTBH)on SARS-CoV-2 (COVID-19) RNA JESSIE+probe Ql (Unsp spec) Not detected Normal NOT DETECTED [facility] Comment on above: Result Comment: When diagnostic [...] for this test is supported by the Psychiatric Therapist of Health and Human Service's declaration that [...] used). Performed By: #### C BC #### [facility] [address] [address] [address] Jodi LOOMIS BLD IMMUNO SCREENon OCCULT BLOOD Negative Normal NEGATIVE [facility] Comment on above: Performed By: #### D ATA1C #### [facility] [address] [address] [address] Jodi Roman PROF 14(COMP METB)on 022 Albumin [Mass/Vol] 3.0 g/dL Critically low 3.4-5.0 [facility] Comment on above: Performed By: #### C MP #### [facility] [address] [address] [address] Jodi Roman Albumin/Globulin [Mass ratio] 0.8 {ratio} Normal [facility] Comment on above: Performed By: #### C MP #### [facility] [address] [place] [address] Dr. Jodi Roman ALP [Catalytic activity/Vol] 126 U/L Critically high 46-116 [facility] Comment on above: Performed By: #### C MP #### [facility] [address] [place] [address] Dr. Jodi Roman ALT [Catalytic activity/Vol] 22 U/L Normal 16-63 [facility] Comment on above: Performed By: #### C MP #### [facility] [address] [place] [address] Dr. Jodi Roman Anion gap [Moles/Vol] 16.7 mmol/L Normal [facility] Comment on above: Performed By: #### C MP #### [facility] [address] [address] [address] Jodi Roman AST [Catalytic activity/Vol] 23 U/L Normal 15-37 [facility] Comment on above: Performed By: #### C MP #### [facility] [address] [place] [address] Dr. Jodi Roman Bilirubin [Mass/Vol] 0.6 mg/dL Normal 0.2-1.0 [facility] Comment on above: Performed By: #### C MP #### [facility] [address] [place] [address] Dr. Jodi Roman Calcium [Mass/Vol] 8.5 mg/dL Normal 8.5-10.1 [facility] Comment on above: Performed By: #### C MP #### [facility] [address] [address] [address] Jodi Roman Chloride [Moles/Vol] 99 mmol/L Normal 98-107 [facility] Comment on above: Performed By: #### C MP #### [facility] [address] [address] [address] Jodi Roman CO2 [Moles/Vol] 27.4 mmol/L Normal 21.0-32.0 [facility] Comment on above: Performed By: #### C MP #### [facility] [address] [address] [address] Jodi Roman Creatinine [Mass/Vol] 0.80 mg/dL Normal 0.70-1.30 [facility] Comment on above: Performed By: #### C MP #### [facility] [address] [place] [address] Dr. Jodi Roman EGFR-AF YEMENI >60 Normal >=60 [facility] Comment on above: Performed By: #### C MP #### [facility] [address] [place] [address] Dr. Jodi Roman EGFR-NON AF YEMENI >60 Normal >=60 [facility] Comment on above: Performed By: #### C MP #### [facility] [address] [place] [address] Dr. Jodi Roman Globulin (S) [Mass/Vol] 3.9 g/dL Normal [facility] Comment on above: Performed By: #### C MP #### [facility] [address] [place] [address] Dr. Jodi Roman Glucose [Mass/Vol] 116 mg/dL Critically high 74-106 [facility] Comment on above: Performed By: #### C MP #### [facility] [address] [place] [address] Dr. Jodi Roman Potassium [Moles/Vol] 4.1 mmol/L Normal 3.5-5.1 [facility] Comment on above: Performed By: #### C MP #### [facility] [address] [place], [place] [id number] Dr. Jodi Roman Protein [Mass/Vol] 6.9 g/dL Normal 6.4-8.2 [facility] Comment on above: Performed By: #### C MP #### [facility] [address] [place] [address] Dr. Jodi Roman Sodium [Moles/Vol] 129 mmol/L Critically low 136-145 [facility] Comment on above: Performed By: #### C MP #### [facility] [address] [address] [address] Jodi Roman Urea nitrogen [Mass/Vol] 15.0 mg/dL Normal 7.0-18.0 [facility] Comment on above: Performed By: #### C MP #### [facility] [address] [place] [address] Dr. Jodi Roman Urea nitrogen/Creatinine [Mass ratio] 18.8 mg/mg Normal [facility] Comment on above: Performed By: #### C MP #### [facility] [address] [place] [address] Dr. Jodi Roman PROTIMEon 11-11-2021 INR Coag (PPP) [Relative time] 1.01 {INR} Normal [facility] Comment on above: Performed By: #### P TT, PT #### [facility] [address] [place] [address] Dr. Jodi Roman INR GUIDELINES SEE BELOW Normal [facility] Comment on above: Result Comment: ESHA RED INR: 2.0 - 3.0 CONDITIONS NOT LISTED BELOW 2.5 - 3.5 FOR PROSTHETIC HEART VALVE REPLACEMENT 2.5 - 3.5 RECURRENT THROMBOSIS Performed By: #### P TT, PT #### [facility] [address] [place] [address] Dr. Jodi Roman PT Coag (PPP) [Time] 10.9 s Normal 9.0-11.6 [facility] Comment on above: Performed By: #### P TT, PT #### [facility] [address] [place] [address] Dr. Jodi Roman PTTon 11-11-2021 aPTT Coag (Bld) [Time] 25.4 s Normal 22.3-36.2 [facility] Comment on above: Performed By: #### P TT, PT #### [facility] [address] [place] [address] Dr. Jodi Roman CBC AUTO DIFFon 10-26-2021 BASO # 0.0 103/ul Normal 0.0-0.1 [facility] Comment on above: Performed By: #### D ATA1C #### [facility] [address] [place] [address] Dr. Jodi Roman Basophils/100 WBC (Bld) 0.3 % Normal 0.2-2.0 [facility] Comment on above: Performed By: #### D ATA1C #### [facility] [address] [place] [address] Dr. Jodi Roman EO # 0.1 103/ul Normal 0.0-0.7 [facility] Comment on above: Performed By: #### D ATA1C #### [facility] [address] [place] [address] Dr. Jodi Roman Eosinophils/100 WBC (Bld) 0.5 % Critically low 0.9-7.0 [facility] Comment on above: Performed By: #### D ATA1C #### [facility] [address] [place] [address] Dr. Jodi Roman Erythrocyte distribution width (RBC) [Ratio] 12.4 % Normal 11.0-15.0 [facility] Comment on above: Performed By: #### D ATA1C #### [facility] [address] [place] [address] Dr. Jodi oRman Hematocrit (Bld) [Volume fraction] 39.5 % Critically low 42.0-54.0 [facility] Comment on above: Performed By: #### D ATA1C #### [facility] [address] [place] [address] Dr. Jodi Roman Hemoglobin (Bld) [Mass/Vol] 12.8 g/dL Critically low 14.0-18.0 [facility] Comment on above: Performed By: #### D ATA1C #### [facility] [address] [address] [address] Jodi Roman IG # 0.07 10e3/ul Critically high 0.00-0.03 [facility] Comment on above: Performed By: #### D ATA1C #### [facility] [address] [address] [address] Jodi Roman IG % 0.5 % Normal 0.0-0.5 [facility] Comment on above: Performed By: #### D ATA1C #### [facility] [address] [address] [address] Jodi Roman LYMPH # 0.9 103/ul Critically low 1.2-3.8 [facility] Comment on above: Performed By: #### D ATA1C #### [facility] [address] [place] [address] Dr. Jodi Roman Lymphocytes/100 WBC (Bld) 6.3 % Critically low 20.5-60.0 [facility] Comment on above: Performed By: #### D ATA1C #### [facility] [address] [place] [address] Dr. Jodi Roman MANUAL DIFF REQ NO Normal [facility] Comment on above: Performed By: #### D ATA1C #### [facility] [address] [place] [address] Dr. Jodi Roman MCH (RBC) [Entitic mass] 30.8 pg Normal 25.9-34.0 [facility] Comment on above: Performed By: #### D ATA1C #### [facility] [address] [address] [address] Jodi Roman MCHC (RBC) [Mass/Vol] 32.4 g/dL Normal 29.9-35.2 [facility] Comment on above: Performed By: #### D ATA1C #### [facility] [address] [address] [address] Jodi Roman MCV (RBC) [Entitic vol] 95.2 fL Critically high 80.0-94.0 [facility] Comment on above: Performed By: #### D ATA1C #### [facility] [address] [address] [address] Jodi Roman MONO # 0.9 103/ul Critically high 0.3-0.8 [facility] Comment on above: Performed By: #### D ATA1C #### [facility] [address] [place] [address] Dr. Jodi Roman Monocytes/100 WBC (Bld) 6.2 % Normal 1.7-12.0 [facility] Comment on above: Performed By: #### D ATA1C #### [facility] [address] [place] [address] Dr. Jodi Roman NEUT # 12.8 103/ul Critically high 1.4-6.5 [facility] Comment on above: Performed By: #### Chavez ATA1C #### [facility] [address] [place] [address] Dr. Jodi Roman Neutrophils/100 WBC (Bld) 86.2 % Critically high 43.0-75.0 [facility] Comment on above: Performed By: #### Chavez ATA1C #### [facility] [address] [place] [address] Dr. Jodi Roman Platelet mean volume (Bld) [Entitic vol] 9.4 fL Critically low 9.5-13.5 [facility] Comment on above: Performed By: #### D ATA1C #### [facility] [address] [place] [address] Dr. Jodi Roman PLT 169 103/ul Normal 150-450 [facility] Comment on above: Performed By: #### Chavez ATA1C #### [facility] [address] [place] [address] Dr. Jodi Roman RBC 4.15 106/ul Critically low 4.70-6.10 [facility] Comment on above: Performed By: #### D ATA1C #### [facility] [address] [place] [address] Dr. Jodi Roman WBC 14.8 103/ul Critically high 4.0-11.0 [facility] Comment on above: Performed By: #### Chavez ATA1C #### [facility] [address] [place] [address] CHEST WO CONon [...] NICOLE SIMMS Date: 2021-10-26 17:38 Normal [facility] Covid-19 PCR (CVDTB)on 10-07 SARS-CoV-2 (COVID-19) RNA JESSIE+probe Ql (Unsp spec) Not detected Normal NOT DETECTED [facility] Comment on above: Result Comment: When diagnostic [...] for this test is supported by the [place] of [employer] and Human Service's declaration that [...] used). Performed By: #### D ATA1C #### [facility] [address] [place] [address] Dr. Jodi Roman PROF CHEM 8 (BAS METB)on Anion gap [Moles/Vol] 11.7 mmol/L Normal [facility] Comment on above: Performed By: #### C BC #### [facility] [address] [place] [address] Dr. Jodi Roman Calcium [Mass/Vol] 9.2 mg/dL Normal 8.5-10.1 [facility] Comment on above: Performed By: #### C BC #### [facility] [address] [place] [address] Dr. Jodi Roman Chloride [Moles/Vol] 101 mmol/L Normal 98-107 [facility] Comment on above: Performed By: #### C BC #### [facility] [address] [place] [address] Dr. Jodi Roman CO2 [Moles/Vol] 27.6 mmol/L Normal 21.0-32.0 [facility] Comment on above: Performed By: #### C BC #### [facility] [address] [place] [address] Dr. Jodi Roman Creatinine [Mass/Vol] 0.98 mg/dL Normal 0.70-1.30 [facility] Comment on above: Performed By: #### C BC #### [facility] [address] [place] [address] Dr. Jodi Roman EGFR-AF YEMENI >60 Normal >=60 [facility] Comment on above: Performed By: #### C BC #### [facility] [address] [place] [address] Dr. Jodi Roman EGFR-NON AF YEMENI >60 Normal >=60 [facility] Comment on above: Performed By: #### C BC #### [facility] [address] [address] [address] Jodi Roman Glucose [Mass/Vol] 119 mg/dL Critically high 74-106 [facility] Comment on above: Performed By: #### C BC #### [facility] [address] [address] [address] Jodi Roman Potassium [Moles/Vol] 4.3 mmol/L Normal 3.5-5.1 [facility] Comment on above: Performed By: #### C BC #### [facility] [address] [place] [address] Dr. Jodi Roman Sodium [Moles/Vol] 136 mmol/L Normal 136-145 [facility] Comment on above: Performed By: #### C BC #### [facility] [address] [place] [address] Dr. Jodi Roman Urea nitrogen [Mass/Vol] 15.0 mg/dL Normal 7.0-18.0 [facility] Comment on above: Performed By: #### C BC #### [facility] [address] [place] [address] Dr. Jodi Roman Urea nitrogen/Creatinine [Mass ratio] 15.3 mg/mg Normal [facility] Comment on above: Performed By: #### C BC #### [facility] [address] [place] [address] Dr. Jodi Roman XR CLAVICLE RTon 10-26-2021 [...] JANE JOVAN Date: 2021-10-26 15:37 Normal [facility] XR ELBOW RT MIN 3 VIEWSon XR [...] DEL CHAKRABORTY Date: 2021-10-26 17:23 Normal [facility] XR HIP RT 2 3V W PELVISon [...] CHARLES ALEJANDRA Date: 2021-10-26 15:40 Normal [facility] CARDIAC STRESS/REST INJE CTIONon 10-21-2021 [facility] CARDIAC STRESS/REST INJECTION Patient Name: CHICO BAKER STUDY: MYOCARDIAL PERFUSION STRESS TEST WITH LEXISCAN Performing facility: [facility], [address] [place] [address], [address], [address] Provider: Adilene Harrington MD, [facility] PCP: Dr. Jori Dunham Supervising provider: Adilene Harrington MD, [facility] INDICATION: AAA Pre-operative risk assessment for AAA scheduled at [facility] on D. HISTORY: Gender: M; Age: 81 y/o ; Height: 0 cm; Weight: 0 kg. HTN; Carotid disease PAD AAA Denies smoking. COMPARISON: Previous nuclear testing completed [id number] at [place]. Previous echo testing completed on [address] [facility]. ACCESSION NUMBER(S): [id number]; [id number]; [id number] ORDERING CLINICIAN: JUDAH HARRINGTON TECHNIQUE: ONE DAY [...] Electronically signed by: ALL HUDSON MD Normal [facility] No Panel Informationon 10-21 Normal -[facility] [address] [place] Work Phone: COVID-19 Positive/NegativeOr dered By: Raul Quan on 10-13-2021 SARS-CoV-2 (COVID-19) N gene JESSIE+probe Ql (Resp) Negative Negative [facility] Comment on above: Testing for SARS-CoV -2 by RT-PCR This test was developed and its performance characteristics determined by [employer] ([employer]) and validated at the [facility]. This test has not been [...] 10-06-2021 Basophils (Bld) [#/Vol] 0.0 10*3/uL 0.0-0.2 [facility] Basophils/100 WBC Auto (Bld) Ordered By: Raul Quan on 10-06-2021 Basophils/100 WBC (Bld) 0.7 % . [facility] Blood hemoglobin measurement (mass/volume)Ordered By: Raul Quan on 10-06-2021 Hemoglobin (Bld) [Mass/Vol] 13.1 g/dL 13.0-17.0 [facility] Blood leukocytes automated c ount (number/volume)Ordered By: Raul Quan on 10-06-2021 WBC (Bld) [#/Vol] 5.2 10*3/uL 4.5-11.0 [facility] Creatinine and Glomerular fi ltration rate.predicted panel (S/P/Bld)Ordered By: Raul Quan on 10-06-2021 Creatinine [Mass/Vol] 0.98 mg/dL 0.64-1.27 [facility] Eosinophils Auto (Bld) [#/Vo l]Ordered By: Raul Quan on 10-06-2021 Eosinophils (Bld) [#/Vol] 0.1 10*3/uL 0.0-0.45 [facility] Eosinophils/100 WBC Auto (Bl d)Ordered By: Raul Quan on 10-06-2021 Eosinophils/100 WBC (Bld) 1.3 % . [facility] Erythrocyte distribution wid th Auto (RBC) [Ratio]Ordered By: Raul Quan on 10-06-2021 Erythrocyte distribution width (RBC) [Ratio] 13.3 % 12.0-14.8 [facility] Estimated glomerular filtrat ion rate (GFR) non- AmericanOrdered By: Raul Quan on 10-06-2021 GFR/1.73 sq M.predicted among non-blacks MDRD (S/P/Bld) [Vol rate/Area] > 60 mL/Min [facility] Hematocrit Auto (Bld) [Volum e fraction]Ordered By: Raul Quan on 10-06-2021 Hematocrit (Bld) [Volume fraction] 40.4 % 38.8-50.0 [facility] Laboratory - Hematology and Cell countsOrdered By: Raul Quan on 10-06-2021 Nucleated RBC/100 WBC (Bld) [Ratio] 0.0 % 0-0.5 [facility] Lymphocytes Auto (Bld) [#/Vo l]Ordered By: Raul Quan on 10-06-2021 Lymphocytes (Bld) [#/Vol] 1.0 10*3/uL 1.00-4.8 [facility] Lymphocytes/100 WBC Auto (Bl d)Ordered By: Raul Quan on 10-06-2021 Lymphocytes/100 WBC (Bld) 18.4 % . [facility] MCH Auto (RBC) [Entitic mass ]Ordered By: Raul Quan on 10-06-2021 MCH (RBC) [Entitic mass] 30.9 pg 27.5-35.2 [facility] MCHC Auto (RBC) [Mass/Vol]Or dered By: Raul Quan on 10-06-2021 MCHC (RBC) [Mass/Vol] 32.5 g/dL 32.5-35.6 [facility] MCV Auto (RBC) [Entitic vol] Ordered By: Raul Quan on 10-06-2021 MCV (RBC) [Entitic vol] 95.2 fL 83.5-101 [facility] Monocytes Auto (Bld) [#/Vol] Ordered By: Raul Quan on 10-06-2021 Monocytes (Bld) [#/Vol] 0.6 10*3/uL 0.0-0.8 [facility] Monocytes/100 WBC Auto (Bld) Ordered By: Raul Quan on 10-06-2021 Monocytes/100 WBC (Bld) 12.0 % . [facility] Neutrophils Auto (Bld) [#/Vo l]Ordered By: Raul Quan on 10-06-2021 Neutrophils (Bld) [#/Vol] 3.5 10*3/uL 1.8-7.7 [facility] Neutrophils/100 WBC Auto (Bl d)Ordered By: Raul Quan on 10-06-2021 Neutrophils/100 WBC (Bld) 67.6 % . [facility] No Panel InformationOrdered By: Raul Quan on 10-06-2021 Estimated GFR () > 60 mL/Min [facility] Comment on above: GFR estimated refere nce range: According to KDOQI guidelines, <60 ml/min/1.73m2 is sufficient to diagnose a patient with chronic kidney disease. Pharmacy Creatinine Clearance (Chem N/A [facility] Platelet mean volume Auto (B ld) [Entitic vol]Ordered By: Raul Quan on 10-06-2021 Platelet mean volume (Bld) [Entitic vol] 8.1 fL 6.6-10.1 [facility] Platelets Auto (Bld) [#/Vol] Ordered By: Raul Quan on 10-06-2021 Platelets (Bld) [#/Vol] 185 10*3/uL 150-450 [facility] RBC Auto (Bld) [#/Vol]Ordere d By: Raul Quan on 10-06-2021 RBC (Bld) [#/Vol] 4.25 10*6/uL 3.90-5.[address] [facility] Serum or plasma calcium richy urement (mass/volume)Ordered By: Raul Quan on 10-06-2021 Calcium [Mass/Vol] 9.0 mg/dL 8.2-10.2 [facility] Serum or plasma chloride young surement (moles/volume)Ordered By: Raul Quan on 10-06-2021 Chloride [Moles/Vol] 101 mmol/L 95-114 [facility] Serum or plasma glucose richy urement (mass/volume)Ordered By: Raul Quan on 10-06-2021 Glucose [Mass/Vol] 187 mg/dL 70-100 [facility] Comment on above: ADA recommended refe rence range Random Glucose Reference Range is dependent on time and content of last meal. Glucose of more than 200 mg/dL in a nonstressed, ambulatory subject supports the diagnosis of Diabetes Mellitus. Serum or plasma potassium me asurement (moles/volume)Ordered By: Raul Quan on 10-06-2021 Potassium [Moles/Vol] 4.0 mmol/L 3.5-5.1 [facility] Serum or plasma sodium measu rement (moles/volume)Ordered By: Raul Quan on 10-06-2021 Sodium [Moles/Vol] 135 mmol/L 136-146 [facility] Serum or plasma total carbon dioxide measurement (moles/volume)Ordered By: Raul Quan on 10-06-2021 CO2 [Moles/Vol] 25.1 mmol/L 22.0-30.0 [facility] Serum or plasma urea nitroge n measurement (mass/volume)Ordered By: Raul Quan on 10-06-2021 Urea nitrogen [Mass/Vol] 13 mg/dL 9-23 [facility] CBC AUTO DIFFon 09-22-2021 BASO # 0.0 103/ul Normal 0.0-0.1 [facility] Comment on above: Performed By: #### C BC #### [facility] [address] [address] [address] Jodi Roman Basophils/100 WBC (Bld) 0.3 % Normal 0.2-2.0 [facility] Comment on above: Performed By: #### C BC #### [facility] [address] [place] [address] Dr. Jodi Roman EO # 0.1 103/ul Normal 0.0-0.7 [facility] Comment on above: Performed By: #### C BC #### [facility] [address] [place] [address] Dr. Jodi Roman Eosinophils/100 WBC (Bld) 0.8 % Critically low 0.9-7.0 [facility] Comment on above: Performed By: #### C BC #### [facility] [address] [place] [address] Dr. Jodi Roman Erythrocyte distribution width (RBC) [Ratio] 12.5 % Normal 11.0-15.0 [facility] Comment on above: Performed By: #### C BC #### [facility] [address] [place] [address] Dr. Jodi Roman Hematocrit (Bld) [Volume fraction] 43.6 % Normal 42.0-54.0 [facility] Comment on above: Performed By: #### C BC #### [facility] [address] [place] [address] Dr. Jodi Roman Hemoglobin (Bld) [Mass/Vol] 14.1 g/dL Normal 14.0-18.0 [facility] Comment on above: Performed By: #### C BC #### [facility] [address] [place] [address] Dr. Jodi Roman IG # 0.03 10e3/ul Normal 0.00-0.03 [facility] Comment on above: Performed By: #### C BC #### [facility] [address] [place] [address] Dr. Jodi Roman IG % 0.3 % Normal 0.0-0.5 [facility] Comment on above: Performed By: #### C BC #### [facility] [address] [place] [address] Dr. Jodi Roman LYMPH # 1.5 103/ul Normal 1.2-3.8 [facility] Comment on above: Performed By: #### C BC #### [facility] [address] [place] [address] Dr. Jodi Roman Lymphocytes/100 WBC (Bld) 17.2 % Critically low 20.5-60.0 [facility] Comment on above: Performed By: #### C BC #### [facility] [address] [place] [address] Dr. Jodi Roman MANUAL DIFF REQ NO Normal [facility] Comment on above: Performed By: #### C BC #### [facility] [address] [place] [address] Dr. Jodi Roman MCH (RBC) [Entitic mass] 31.1 pg Normal 25.9-34.0 [facility] Comment on above: Performed By: #### C BC #### [facility] [address] [place] [address] Dr. Jodi Roman MCHC (RBC) [Mass/Vol] 32.3 g/dL Normal 29.9-35.2 [facility] Comment on above: Performed By: #### C BC #### [facility] [address] [place] [address] Dr. Jodi Roman MCV (RBC) [Entitic vol] 96.0 fL Critically high 80.0-94.0 [facility] Comment on above: Performed By: #### C BC #### [facility] [address] [place] [address] Dr. Jodi Roman MONO # 1.0 103/ul Critically high 0.3-0.8 [facility] Comment on above: Performed By: #### C BC #### [facility] [address] [place] [address] Dr. Jodi Roman Monocytes/100 WBC (Bld) 10.8 % Normal 1.7-12.0 [facility] Comment on above: Performed By: #### C BC #### [facility] [address] [place] [address] Dr. Jodi Roman NEUT # 6.2 103/ul Normal 1.4-6.5 [facility] Comment on above: Performed By: #### C BC #### [facility] [address] [address] [address] Jodi Roman Neutrophils/100 WBC (Bld) 70.6 % Normal 43.0-75.0 [facility] Comment on above: Performed By: #### C BC #### [facility] [address] [address] [address] Jodi Roman Platelet mean volume (Bld) [Entitic vol] 9.6 fL Normal 9.5-13.5 [facility] Comment on above: Performed By: #### C BC #### [facility] [address] [place] [address] Dr. Jodi Roman PLT 206 103/ul Normal 150-450 [facility] Comment on above: Performed By: #### C BC #### [facility] [address] [place] [address] Dr. Jodi Roman RBC 4.54 106/ul Critically low 4.70-6.10 [facility] Comment on above: Performed By: #### C BC #### [facility] [address] [place] [address] Dr. Jodi Roman WBC 8.8 103/ul Normal 4.0-11.0 [facility] Comment on above: Performed By: #### C BC #### [facility] [address] [place] [address] Dr. Jodi Roman PROF CHEM 8 (BAS METB)on Anion gap [Moles/Vol] 9.5 mmol/L Normal [facility] Comment on above: Performed By: #### B MP #### [facility] [address] [place] [address] Dr. Jodi Roman Calcium [Mass/Vol] 9.4 mg/dL Normal 8.5-10.1 [facility] Comment on above: Performed By: #### B MP #### [facility] [address] [place] [address] Dr. Jodi Roman Chloride [Moles/Vol] 100 mmol/L Normal 98-107 [facility] Comment on above: Performed By: #### B MP #### [facility] [address] [address] [address] Jodi Roman CO2 [Moles/Vol] 33.2 mmol/L Critically high 21.0-32.0 [facility] Comment on above: Performed By: #### B MP #### [facility] [address] [address] [address] Jodi Roman Creatinine [Mass/Vol] 0.99 mg/dL Normal 0.70-1.30 [facility] Comment on above: Performed By: #### B MP #### [facility] [address] [address] [address] Jodi Roman EGFR-AF YEMENI >60 Normal >=60 [facility] Comment on above: Performed By: #### B MP #### [facility] [address] [address] [address] Jodi Roman EGFR-NON AF YEMENI >60 Normal >=60 [facility] Comment on above: Performed By: #### B MP #### [facility] [address] [address] [address] Jodi Roman Glucose [Mass/Vol] 109 mg/dL Critically high 74-106 [facility] Comment on above: Performed By: #### B MP #### [facility] [address] [address] [address] Jodi Romna Potassium [Moles/Vol] 4.7 mmol/L Normal 3.5-5.1 [facility] Comment on above: Performed By: #### B MP #### [facility] [address] [address] [address] Jodi Roman Sodium [Moles/Vol] 138 mmol/L Normal 136-145 [facility] Comment on above: Performed By: #### B MP #### [facility] [address] [address] [address] Jodi Roman Urea nitrogen [Mass/Vol] 17.0 mg/dL Normal 7.0-18.0 [facility] Comment on above: Performed By: #### B MP #### [facility] [address] [address] [address] Jodi Roman Urea nitrogen/Creatinine [Mass ratio] 17.2 mg/mg Normal [facility] Comment on above: Performed By: #### B MP #### [facility] [address] [place] [address] Dr. Jodi Roman Creatinine (Bld) [Mass/Vol]O rdered By: Tamar Perea on 09-18-2021 Creatinine [Mass/Vol] 0.8 mg/dL 0.6-1.3 [facility] Comment on above: ER/ESD physician is notified/shown all ISTAT results. Critical values may be confirmed by laboratory testing if deemed necessary by ER attending doctor. No Panel InformationOrdered By: Tamar Perea on 09-18-2021 POC Estimated GFR > 60 [facility] Comment on above: GFR estimated refere nce range: According to KDOQI guidelines, <60 ml/min/1.73m2 is sufficient to diagnose a patient with chronic kidney disease. POC Estimated GFR Non- Amer > 60 [facility] CBC AUTO DIFFon 08-12-2021 BASO # 0.0 103/ul Normal 0.0-0.1 [facility] Comment on above: Performed By: #### C BC #### [facility] [address] [place] [address] Dr. Jodi Rmoan Basophils/100 WBC (Bld) 0.3 % Normal 0.2-2.0 [facility] Comment on above: Performed By: #### C BC #### [facility] [address] [address] [address] Jodi Roman EO # 0.1 103/ul Normal 0.0-0.7 [facility] Comment on above: Performed By: #### C BC #### [facility] [address] [address] [address] Jodi Roman Eosinophils/100 WBC (Bld) 1.8 % Normal 0.9-7.0 [facility] Comment on above: Performed By: #### C BC #### [facility] [address] [address] [address] Jodi Roman Erythrocyte distribution width (RBC) [Ratio] 12.6 % Normal 11.0-15.0 [facility] Comment on above: Performed By: #### C BC #### [facility] [address] [place] [address] Dr. Jodi Roman Hematocrit (Bld) [Volume fraction] 40.9 % Critically low 42.0-54.0 [facility] Comment on above: Performed By: #### C BC #### [facility] [address] [place] [address] Dr. Jodi Roman Hemoglobin (Bld) [Mass/Vol] 13.4 g/dL Critically low 14.0-18.0 [facility] Comment on above: Performed By: #### C BC #### [facility] [address] [place] [address] Dr. Jodi Roman IG # 0.03 10e3/ul Normal 0.00-0.03 [facility] Comment on above: Performed By: #### C BC #### [facility] [address] [place] [address] Dr. Jodi Roman IG % 0.4 % Normal 0.0-0.5 [facility] Comment on above: Performed By: #### C BC #### [facility] [address] [place] [address] Dr. Jodi Roman LYMPH # 1.4 103/ul Normal 1.2-3.8 [facility] Comment on above: Performed By: #### C BC #### [facility] [address] [place] [address] Dr. Jodi Roman Lymphocytes/100 WBC (Bld) 18.6 % Critically low 20.5-60.0 [facility] Comment on above: Performed By: #### C BC #### [facility] [address] [place] [address] Dr. Jodi Roman MCH (RBC) [Entitic mass] 31.5 pg Normal 25.9-34.0 [facility] Comment on above: Performed By: #### C BC #### [facility] [address] [place] [address] Dr. Jodi Roman MCHC (RBC) [Mass/Vol] 32.8 g/dL Normal 29.9-35.2 [facility] Comment on above: Performed By: #### C BC #### [facility] [address] [place] [address] Dr. Jodi Roman MCV (RBC) [Entitic vol] 96.0 fL Critically high 80.0-94.0 [facility] Comment on above: Performed By: #### C BC #### [facility] [address] [place] [address] Dr. Jodi Roman MONO # 0.7 103/ul Normal 0.3-0.8 [facility] Comment on above: Performed By: #### C BC #### [facility] [address] [place] [address] Dr. Jodi Roman Monocytes/100 WBC (Bld) 9.7 % Normal 1.7-12.0 [facility] Comment on above: Performed By: #### C BC #### [facility] [address] [place] [address] Dr. Jodi Roman NEUT # 5.1 103/ul Normal 1.4-6.5 [facility] Comment on above: Performed By: #### C BC #### [facility] [address] [place] [address] Dr. Jodi Roman Neutrophils/100 WBC (Bld) 69.2 % Normal 43.0-75.0 [facility] Comment on above: Performed By: #### C BC #### [facility] [address] [place] [address] Dr. Jodi Roman Platelet mean volume (Bld) [Entitic vol] 9.8 fL Normal 9.5-13.5 [facility] Comment on above: Performed By: #### C BC #### [facility] [address] [place] [address] Dr. Jodi Roman PLT 195 103/ul Normal 150-450 [facility] Comment on above: Performed By: #### C BC #### [facility] [address] [place] [address] Dr. Jodi Roman RBC 4.26 106/ul Critically low 4.70-6.10 [facility] Comment on above: Performed By: #### C BC #### [facility] [address] [place] [address] Dr. Jodi Roman WBC 7.4 103/ul Normal 4.0-11.0 [facility] Comment on above: Performed By: #### C BC #### [facility] [address] [place] [address] Dr. Jodi Roman ASHLEY - TSHon 08-12-2021 TSH 1.879 uIU/mL Normal 0.358-3.74 0 [facility] Comment on above: Performed By: #### D LULU DATBMP #### [facility] [address] [place] [address] Dr. Jodi Roman TSH RANGE SEE BELOW Normal [facility] Comment on above: Result Comment: <0.3 4 UIU/ml HYPERTHYROID 0.34-5.60 UIU/ml EUTHYROID >5.60 UIU/ml HYPOTHYROID Performed By: #### D LULU DATBMP #### [facility] [address] [place] [address] Dr. Jodi Roman ASHLEY- BMP WITH LIPIDon 2021 Anion gap [Moles/Vol] 11.4 mmol/L Normal [facility] Comment on above: Performed By: #### D LULU DATBMP #### [facility] [address] [place] [address] Dr. Jodi Roman Calcium [Mass/Vol] 8.7 mg/dL Normal 8.5-10.1 [facility] Comment on above: Performed By: #### D LULU DATBMP #### [facility] [address] [place] [address] Dr. Jodi Roman Chloride [Moles/Vol] 105 mmol/L Normal 98-107 [facility] Comment on above: Performed By: #### D ATTKENDELL DATBMP #### [facility] [address] [place] [address] Dr. Jodi Roman Cholesterol [Mass/Vol] 113 mg/dL Normal <=200 [facility] Comment on above: Performed By: #### D ATTSH, DATBMP #### [facility] [address] [place] [address] Dr. Jodi Roman Cholesterol in HDL [Mass/Vol] 47 mg/dL Normal 40-60 [facility] Comment on above: Performed By: #### D ATTSH, DATBMP #### [facility] [address] [place] [address] Dr. Jodi Roman Cholesterol in LDL [Mass/Vol] 58.0 mg/dL Normal [facility] Comment on above: Performed By: #### D ATTSH, DATBMP #### [facility] [address] [place] [address] Dr. Jodi Roman CO2 [Moles/Vol] 29.0 mmol/L Normal 21.0-32.0 [facility] Comment on above: Performed By: #### D ATTSH, DATBMP #### [facility] [address] [place] [address] Dr. Jodi Roman Creatinine [Mass/Vol] 0.99 mg/dL Normal 0.70-1.30 [facility] Comment on above: Performed By: #### D ATTSH, DATBMP #### [facility] [address] [place] [address] Dr. Jodi Roman EGFR-AF YEMENI >60 Normal >=60 [facility] Comment on above: Performed By: #### D ATTSH, DATBMP #### [facility] [address] [place] [address] Dr. Jodi Roman EGFR-NON AF YEMENI >60 Normal >=60 [facility] Comment on above: Performed By: #### D ATTSH, DATBMP #### [facility] [address] [place] [address] Dr. Jodi Roman Glucose [Mass/Vol] 116 mg/dL Critically high 74-106 T [facility] Comment on above: Performed By: #### D ATTSH, DATBMP #### [facility] [address] [place] [address] Dr. Jodi Roman HDL NORMAL > or = 60 mg/dl - LO W CARDIOVASCULAR RISK <40 mg/dl - HIGH CARDIOVASCULAR RISK Normal [facility] Comment on above: Performed By: #### D ATTKENDELL, DATBMP #### [facility] [address] [address] [address] Jodi Roman LDL CALC NORMAL SEE BELOW Normal [facility] Comment on above: Result Comment: <100 mg/dl OPTIMAL 100 - 129 mg/dl NEAR OR ABOVE OPTIMAL 130 - 159 mg/dl BORDERLINE HIGH 160 - 189 mg/dl HIGH >190 mg/dl VERY HIGH Performed By: #### D ATTSH, DATBMP #### [facility] [address] [address] [address] Jodi Roman Potassium [Moles/Vol] 4.4 mmol/L Normal 3.5-5.1 [facility] Comment on above: Performed By: #### D ATTKENDELL, DATBMP #### [facility] [address] [address] [address] Jodi Roman Sodium [Moles/Vol] 141 mmol/L Normal 136-145 [facility] Comment on above: Performed By: #### D ATTKENDELL, DATBMP #### [facility] [address] [address] [address] Jodi Roman Triglyceride [Mass/Vol] 40 mg/dL Normal <=150 [facility] Comment on above: Performed By: #### D ATTSH, DATBMP #### [facility] [address] [address] [address] Jodi Roman Urea nitrogen [Mass/Vol] 16.0 mg/dL Normal 7.0-18.0 [facility] Comment on above: Performed By: #### D ATTSH, DATBMP #### [facility] [address] [address] [address] Jodi Roman Urea nitrogen/Creatinine [Mass ratio] 16.2 mg/mg Normal [facility] Comment on above: Performed By: #### D ATTSH, DATBMP #### [facility] [address] [address] [address] Jodi Roman VLDL CALC 8.0 mg/dL Normal [facility] Comment on above: Performed By: #### D ATTSH, DATBMP #### [facility] [address] [address] [address] Jodi Roman GLYCOHEMOGLOBIN A1Con 2021 ADA RECOMMENDATION SEE BELOW Normal [facility] Comment on above: Result Comment: ADA RECOMMENDED LIMIT 4.0 - 6.0 ADA THERAPEUTIC TARGET < 7.0 ACTION SUGGESTED > 7.0 Performed By: #### D ATA1C #### [facility] [address] [address] [address] Jodi Roman Glucose [Mass/Vol] 131 mg/dL Normal [facility] Comment on above: Performed By: #### D ATA1C #### [facility] [address] [address] [address] Jodi Roman HbA1c (Bld) [Mass fraction] 6.2 % Normal 4.5-6.2 [facility] Comment on above: Performed By: #### D ATA1C #### [facility] [address] [address] [address] Jodi Roman CNOVon 12-11-2020 CNOV Office Visit ([facility] ) -- CHICO BAKER ([id number]) 1940 M Date Time Provider Department 12/11/20 10:45 AM POWER CATHERINE During your visit today, we recorded the following information about you: Pulse Blood pressure Weight Height 60/minute 122/78 67.6 kg 1.702 m Power Catherine MD 12/11/2020 11:17 AM [facility] OUTPATIENT VISIT DATE December 11, 2020 OUTPATIENT VISIT TYPE EST PRIMARY CARE PHYSICIAN: Shailesh Dunham (Jere) [address] [place] [address] REFERRING PHYSICIAN Power Catherine [address] [facility] [id number] CHIEF COMPLAINT: Patient presents with: Established Patient [...] Power Catherine MD Referring Provider: POWER CATHERINE [[id number]] Allergies As of Date: 12/11/2020 Noted Allergy Reaction SHALINI INHIBITORS 05/09/2015 16 - Unknown GADOLINIUM-CONTAINING CONTRAST ME*05/09/2015 16 - Unknown TETANUS VACCINES AND TOXOID 05/16/2015 16 - Unknown Date Reviewed: 12/11/2020 Reviewed by: Harika Menjivar - Fully Assessed Reason for Visit: Established Patient [175] Follow Up [171] Primary Visit Diagnosis: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 - nitroglycerin sublingual (NITROQUICK) 0.3 mg SL tablet (more content not included)... [facility] SAMUELCHICO ([id number]) 1940 M Date Time Provider Department 10/30/20 [...] [I71.4] Order(s):US ABD AORTA [facility] [[id number]] Order #: [id number] FUTURE Prescriptions as of 11/04/2020 - aspirin, [...] Status:Closed by SHERI MOLINA on 11/04/20 Normal [facility] Vital Signs Date Time Vital Sign Value Performing Clinician Facility 09-13-2024 11:46-0400 Body height 167.64 cm Shailesh Ball DO Work Phone: [facility] 09-13-2024 11:46-0400 Body mass index (BMI) [Ratio] 20.2 kg/m2 Shailesh Ball DO Work Phone: [facility] 09-13-2024 11:46-0400 Body weight 56.81 kg Shailesh Ball DO Work Phone: [facility] 09-13-2024 11:46-0400 Diastolic blood pressure 65 mm[Hg] Shailesh Ball DO Work Phone: [facility] 09-13-2024 11:46-0400 Heart rate 61 /min Shailesh Ball DO Work Phone: [facility] 09-13-2024 11:46-0400 Respiratory rate 12 /min Shailesh Ball DO Work Phone: [facility] 09-13-2024 11:46-0400 Systolic blood pressure 147 mm[Hg] Shailesh Ball DO Work Phone: [facility] 08-14-2024 11:41-0400 Body height 167.64 cm [facility] 08-14-2024 11:41-0400 Body mass index (BMI) [Ratio] 20.6 kg/m2 [facility] 08-14-2024 11:41-0400 Body weight 58.05 kg [facility] 08-14-2024 11:41-0400 Diastolic blood pressure 67 mm[Hg] [facility] 08-14-2024 11:41-0400 Heart rate 83 /min [facility] 08-14-2024 11:41-0400 Respiratory rate 12 /min [facility] 08-14-2024 11:41-0400 SaO2% (BldA) [Mass fraction] 94 % [facility] 08-14-2024 11:41-0400 Systolic blood pressure 124 mm[Hg] [facility] 07-12-2024 15:20-0400 Body height 167.64 cm [facility] 07-12-2024 15:20-0400 Body mass index (BMI) [Ratio] 21.3 kg/m2 [facility] 07-12-2024 15:20-0400 Body weight 60.04 kg [facility] 07-12-2024 15:20-0400 Diastolic blood pressure 86 mm[Hg] [facility] 07-12-2024 15:20-0400 Diastolic blood pressure 89 mm[Hg] [facility] 07-12-2024 15:20-0400 Heart rate 66 /min [facility] 07-12-2024 15:20-0400 Respiratory rate 12 /min [facility] 07-12-2024 15:20-0400 Systolic blood pressure 164 mm[Hg] [facility] 07-12-2024 15:20-0400 Systolic blood pressure 139 mm[Hg] [facility] 01-11-2024 11:02-0500 Body height 167.64 cm DO Shailesh Ball Work Phone: [facility] 01-11-2024 11:02-0500 Body mass index (BMI) [Ratio] 21.7 kg/m2 DO Shailesh Ball Work Phone: [facility] 01-11-2024 11:02-0500 Body temperature 97.8 [degF] DO Shailesh Ball Work Phone: [facility] 01-11-2024 11:02-0500 Body weight 61.23 kg DO Shailesh Ball Work Phone: [facility] 01-11-2024 11:02-0500 Diastolic blood pressure 60 mm[Hg] DO Shailesh Ball Work Phone: [facility] 01-11-2024 11:02-0500 Heart rate 60 /min DO Shailesh Ball Work Phone: [facility] 01-11-2024 11:02-0500 SaO2% (BldA) [Mass fraction] 96 % DO Shailesh Ball Work Phone: [facility] 01-11-2024 11:02-0500 Systolic blood pressure 122 mm[Hg] DO Shailesh Ball Work Phone: [facility] 12-22-2023 13:06-0400 Body height 170.18 cm DO Shailesh Ball Work Phone: [facility] 12-22-2023 13:06-0400 Body mass index (BMI) [Ratio] 21.2 kg/m2 DO Shailesh Ball Work Phone: [facility] 12-22-2023 13:06-0400 Body weight 61.34 kg DO Shailesh Ball Work Phone: [facility] 12-22-2023 13:06-0400 Diastolic blood pressure 80 mm[Hg] DO Shailesh Ball Work Phone: [facility] 12-22-2023 13:06-0400 Diastolic blood pressure 89 mm[Hg] DO Shailesh Ball Work Phone: [facility] 12-22-2023 13:06-0400 Heart rate 62 /min DO Shailesh Ball Work Phone: [facility] 12-22-2023 13:06-0400 Respiratory rate 12 /min DO Shailesh Ball Work Phone: [facility] 12-22-2023 13:06-0400 Systolic blood pressure 173 mm[Hg] DO Shailesh Ball Work Phone: [facility] 12-22-2023 13:06-0400 Systolic blood pressure 139 mm[Hg] DO Shailesh Ball Work Phone: [facility] 11-23-2023 10:05-0400 Body height 170.18 cm DO Shailesh Ball Work Phone: [facility] 11-23-2023 10:05-0400 Body mass index (BMI) [Ratio] 20.9 kg/m2 DO Shailesh Ball Work Phone: [facility] 11-23-2023 10:05-0400 Body weight 60.78 kg DO Shailesh Ball Work Phone: [facility] 11-23-2023 10:05-0400 Diastolic blood pressure 61 mm[Hg] DO Shailesh Ball Work Phone: [facility] 11-23-2023 10:05-0400 Heart rate 67 /min DO Shailesh Ball Work Phone: [facility] 11-23-2023 10:05-0400 Respiratory rate 12 /min DO Shailesh Ball Work Phone: [facility] 11-23-2023 10:05-0400 Systolic blood pressure 98 mm[Hg] DO Shailesh Ball Work Phone: [facility] 11-15-2023 10:21-0400 Body temperature 96.5 [degF] DO Shailesh Ball Work Phone: [facility] 11-15-2023 10:21-0400 Diastolic blood pressure 60 mm[Hg] DO Shailesh Ball Work Phone: [facility] 11-15-2023 10:21-0400 Heart rate 56 /min DO Shailesh Ball Work Phone: [facility] 11-15-2023 10:21-0400 SaO2% (BldA) [Mass fraction] 97 % DO Shailesh Ball Work Phone: [facility] 11-15-2023 10:21-0400 Systolic blood pressure 138 mm[Hg] DO Shailesh Ball Work Phone: [facility] 10-21-2023 09:08-0400 Body height 170.18 cm DO Shailesh Ball Work Phone: [facility] 10-21-2023 09:08-0400 Body mass index (BMI) [Ratio] 20.9 kg/m2 DO Shailesh Ball Work Phone: [facility] 10-21-2023 09:08-0400 Body weight 60.55 kg DO Shailesh Ball Work Phone: [facility] 10-21-2023 09:08-0400 Diastolic blood pressure 58 mm[Hg] DO Shailesh Ball Work Phone: [facility] 10-21-2023 09:08-0400 Heart rate 65 /min DO Shailesh Ball Work Phone: [facility] 10-21-2023 09:08-0400 Respiratory rate 12 /min DO Shailesh Ball Work Phone: [facility] 10-21-2023 09:08-0400 Systolic blood pressure 102 mm[Hg] DO Shailesh Ball Work Phone: [facility] 09-03-2023 08:49-0400 Body height 170.18 cm DO Shailesh Ball Work Phone: [facility] 09-03-2023 08:49-0400 Body mass index (BMI) [Ratio] 21.9 kg/m2 DO Shailesh Ball Work Phone: [facility] 09-03-2023 08:49-0400 Body weight 63.5 kg DO Shailesh Ball Work Phone: [facility] 09-03-2023 08:49-0400 Diastolic blood pressure 58 mm[Hg] DO Shailesh Ball Work Phone: [facility] 09-03-2023 08:49-0400 Heart rate 63 /min DO Shailesh Ball Work Phone: [facility] 09-03-2023 08:49-0400 Respiratory rate 18 /min DO Shailesh Ball Work Phone: [facility] 09-03-2023 08:49-0400 SaO2% (BldA) [Mass fraction] 97 % DO Shailesh Ball Work Phone: [facility] 09-03-2023 08:49-0400 Systolic blood pressure 110 mm[Hg] DO Shailesh Ball Work Phone: [facility] 08-27-2023 08:33-0400 Body height 170.18 cm DO Shailesh Ball Work Phone: [facility] 08-27-2023 08:33-0400 Body mass index (BMI) [Ratio] 21.7 kg/m2 DO Shailesh Ball Work Phone: [facility] 08-27-2023 08:33-0400 Body weight 62.76 kg DO Shailesh Ball Work Phone: [facility] 08-27-2023 08:33-0400 Diastolic blood pressure 65 mm[Hg] DO Shailesh Ball Work Phone: [facility] 08-27-2023 08:33-0400 Heart rate 64 /min DO Shailesh Ball Work Phone: [facility] 08-27-2023 08:33-0400 Respiratory rate 12 /min DO Shailesh Ball Work Phone: [facility] 08-27-2023 08:33-0400 Systolic blood pressure 132 mm[Hg] DO Shailesh Ball Work Phone: [facility] 08-19-2023 11:18-0400 Body height 170.18 cm DO Shailesh Ball Work Phone: [facility] 08-19-2023 11:18-0400 Body mass index (BMI) [Ratio] 21.9 kg/m2 DO Shailesh Ball Work Phone: [facility] 08-19-2023 11:18-0400 Body weight 63.5 kg DO Shailesh Ball Work Phone: [facility] 08-19-2023 11:18-0400 Diastolic blood pressure 56 mm[Hg] DO Shailesh Ball Work Phone: [facility] 08-19-2023 11:18-0400 Heart rate 60 /min DO Shailesh Ball Work Phone: [facility] 08-19-2023 11:18-0400 Respiratory rate 18 /min DO Shailesh Ball Work Phone: [facility] 08-19-2023 11:18-0400 SaO2% (BldA) [Mass fraction] 98 % DO Shailesh Ball Work Phone: [facility] 08-19-2023 11:18-0400 Systolic blood pressure 102 mm[Hg] DO Shailesh Ball Work Phone: [facility] 07-05-2023 10:23-0400 Body height 170.18 cm DO Shailesh Ball Work Phone: [facility] 07-05-2023 10:040 Body mass index (BMI) [Ratio] 21.4 kg/m2 DO Shailesh Ball Work Phone: [facility] 07-05-2023 10:-0400 Body temperature 97 [degF] DO Shailesh Ball Work Phone: [facility] 07-05-2023 10:-040 Body weight 62.14 kg DO Shailesh Ball Work Phone: [facility] 07-05-2023 10:-040 Diastolic blood pressure 48 mm[Hg] DO Shailesh Ball Work Phone: [facility] 07-05-2023 10:-040 Heart rate 60 /min DO Shailesh Ball Work Phone: [facility] 07-05-2023 10:-0400 SaO2% (BldA) [Mass fraction] 97 % DO Shailesh Ball Work Phone: [facility] 07-05-2023 10:-040 Systolic blood pressure 96 mm[Hg] DO Shailesh Ball Work Phone: [facility] 06-22-2023 10:040 Body height 170.18 cm DO Shailesh Ball Work Phone: [facility] 06-22-2023 10:0400 Body mass index (BMI) [Ratio] 21.5 kg/m2 DO Shailesh Ball Work Phone: [facility] 06-22-2023 10:040 Body weight 62.36 kg DO Shailesh Ball Work Phone: [facility] 06-22-2023 10:-040 Diastolic blood pressure 69 mm[Hg] DO Shailesh Ball Work Phone: [facility] 06-22-2023 10:-040 Heart rate 64 /min DO Shailesh Ball Work Phone: [facility] 06-22-2023 10:01-0400 Respiratory rate 12 /min DO Shailesh Ball Work Phone: [facility] 06-22-2023 10:01-0400 Systolic blood pressure 95 mm[Hg] DO Shailesh Ball Work Phone: [facility] 05-04-2023 11:14-0500 Blood Pressure Location Ivelisse Lue [facility] 05-04-2023 11:14-0500 Diastolic blood pressure 46 mm[Hg] Ivelisse Lue [facility] 05-04-2023 11:14-0500 Heart rate 63 /min Ivelisse Lue [facility] 05-04-2023 11:14-0500 Systolic blood pressure 116 mm[Hg] Ivelisse Lue [facility] 04-14-2023 10:15-0500 Body height 170.18 cm Shailesh Ball Other [facility] [employer] Other 04-14-2023 10:15-0500 Body mass index (BMI) [Ratio] 21.64 kg/m2 Shailesh Ball Other [facility] [employer] Other 04-14-2023 10:15-0500 Body weight 62.69 kg Shailesh Ball Other [facility] [employer] Other 04-14-2023 10:15-0500 Diastolic blood pressure 58 mm[Hg] Shailesh Ball Other [facility] [employer] Other 04-14-2023 10:15-0500 Respiratory rate 12 /min Shailesh Ball Other [facility] [employer] Other 04-14-2023 10:15-0500 Systolic blood pressure 118 mm[Hg] Shailesh Ball Other [facility] [employer] Other 03-29-2023 10:00-0500 Body height 170.18 cm Shailesh Ball Other [facility] 03-29-2023 10:00-0500 Body mass index (BMI) [Ratio] 21.8 kg/m2 Shailesh Ball Other [facility] [employer] Other 03-29-2023 10:00-0500 Body weight 63.14 kg Shailesh Ball Other [facility] 03-29-2023 10:00-0500 Diastolic blood pressure 74 mm[Hg] Shailesh Ball Other [facility] 03-29-2023 10:00-0500 Respiratory rate 12 /min Shailesh Ball Other [facility] [employer] Other 03-29-2023 10:00-0500 Systolic blood pressure 132 mm[Hg] Shailesh Ball Other [facility] 01-13-2023 08:49-0500 Blood Pressure Location Ivelisse Lue [facility] 01-13-2023 08:49-0500 Diastolic blood pressure 74 mm[Hg] Ivelisse Lue [facility] 01-13-2023 08:49-0500 Heart rate 68 /min Ivelisse Lue [facility] 01-13-2023 08:49-0500 Respiratory rate 16 /min Ivelisse Lue [facility] 01-13-2023 08:49-0500 Systolic blood pressure 156 mm[Hg] Ivelisse Lue [facility] 11-10-2022 10:30-0400 Body height 170.18 cm Raul Quan Other [employer] Other 11-10-2022 10:30-0400 Body mass index (BMI) [Ratio] 20.99 kg/m2 Raul Melindarer Other [employer] [facility] Other 11-10-2022 10:30-0400 Body temperature 97.8 [degF] Raul Avelina Other [facility] Other 11-10-2022 10:30-0400 Body weight 60.78 kg Raul Stanislawchantellrejakub Other [facility] Other 11-10-2022 10:30-0400 Diastolic blood pressure 64 mm[Hg] Raul Quan Other [facility] Other 11-10-2022 10:30-0400 SaO2% (BldA) [Mass fraction] 98 % Raul Quan Other [facility] Other 11-10-2022 10:30-0400 Systolic blood pressure 110 mm[Hg] Raul Quan Other [facility] Other 10-07-2022 08:49-0400 Blood Pressure Location Ivelisse Lue [facility] 10-07-2022 08:49-0400 Diastolic blood pressure 74 mm[Hg] Ivelisse Lue [facility] 10-07-2022 08:49-0400 Heart rate 75 /min Ivelisse Lue [facility] 10-07-2022 08:49-0400 Systolic blood pressure 139 mm[Hg] Ivelisse Lue [facility] 08-04-2022 11:15-0400 Body height 170.18 cm Raul Quan Other [facility] Other 08-04-2022 11:15-0400 Body mass index (BMI) [Ratio] 21.77 kg/m2 Raul Quan Other [facility] Other 08-04-2022 11:15-0400 Body temperature 97.8 [degF] Raul Quan Other [facility] Other 08-04-2022 11:15-0400 Body weight 63.05 kg Raul Quan Other [facility] Other 08-04-2022 11:15-0400 Diastolic blood pressure 68 mm[Hg] Raul Quan Other [facility] Other 08-04-2022 11:15-0400 SaO2% (BldA) [Mass fraction] 97 % Raul Quan Other [facility] Other 08-04-2022 11:15-0400 Systolic blood pressure 108 mm[Hg] Raul Lawrencerejakub Other [facility] Other 07-09-2022 08:00-0400 Body temperature 98.6 [degF] DO Shailesh Ball Work Phone: [facility] 07-09-2022 08:00-0400 Diastolic blood pressure 72 mm[Hg] DO Shailesh Ball Work Phone: [facility] 07-09-2022 08:00-0400 Heart rate 69 /min DO Shailesh Ball Work Phone: [facility] 07-09-2022 08:00-0400 Respiratory rate 16 /min DO Shailesh Ball Work Phone: [facility] 07-09-2022 08:00-0400 SaO2% (BldA) [Mass fraction] 97 % DO Shailesh Ball Work Phone: [facility] 07-09-2022 08:00-0400 Systolic blood pressure 154 mm[Hg] DO Shailesh Ball Work Phone: [facility] 07-09-2022 06:00-0400 Body weight 65.8 kg DO Shailesh Ball Work Phone: [facility] 07-08-2022 10:52-0400 Inhaled oxygen flow rate 8 L/min DO Shailesh Ball Work Phone: [facility] 07-08-2022 08:34-0400 Body height 167.64 cm DO Shailesh Ball Work Phone: [facility] 07-08-2022 08:34-0400 Body mass index (BMI) [Ratio] 22.7 kg/m2 DO Shailesh Ball Work Phone: [facility] 06-24-2022 09:27-0400 Blood Pressure Location Ivelisse Lue [facility] 06-24-2022 09:27-0400 Diastolic blood pressure 75 mm[Hg] Ivelisse Lue [facility] 06-24-2022 09:27-0400 Heart rate 66 /min Ivelisse Lue [facility] 06-24-2022 09:27-0400 Respiratory rate 16 /min Ivelisse Lue [facility] 06-24-2022 09:27-0400 Systolic blood pressure 120 mm[Hg] Ivelisse Hassan [facility] 05-21-2022 09:30-0400 Body height 170.18 cm Shailesh Ball Other [facility] Other 05-21-2022 09:30-0400 Body mass index (BMI) [Ratio] 21.8 kg/m2 Shailesh Ball Other [facility] Other 05-21-2022 09:30-0400 Body weight 63.14 kg Shailesh Ball Other [facility] Other 05-21-2022 09:30-0400 Diastolic blood pressure 73 mm[Hg] Shailesh Ball Other [facility] Other 05-21-2022 09:30-0400 Respiratory rate 12 /min Shailesh Ball Other [facility] Other 05-21-2022 09:30-0400 Systolic blood pressure 121 mm[Hg] Shailesh Ball Other [facility] Other 05-19-2022 11:00-0400 Body height 170.18 cm Tamar Perea Other [facility] Other 05-19-2022 11:00-0400 Body mass index (BMI) [Ratio] 22.02 kg/m2 Tamar Perea Other [facility] Other 05-19-2022 11:00-0400 Body temperature 97.5 [degF] Tamar Perea Other [facility] Other 05-19-2022 11:00-0400 Body weight 63.78 kg Tamar Perea Other [facility] [employer] Other 05-19-2022 11:00-0400 Diastolic blood pressure 76 mm[Hg] Tamar Perea Other [facility] Other 05-19-2022 11:00-0400 SaO2% (BldA) [Mass fraction] 98 % Tamar Perea Other [employer] [employer] Other 05-19-2022 11:00-0400 Systolic blood pressure 148 mm[Hg] Tamar Perea Other [facility] [employer] Other 04-15-2022 08:57-0500 Blood Pressure Location Ivelisse Lue [facility] 04-15-2022 08:57-0500 Diastolic blood pressure 78 mm[Hg] Ivelisse Lue [facility] 04-15-2022 08:57-0500 Heart rate 68 /min Ivelisse Lue [facility] 04-15-2022 08:57-0500 Respiratory rate 16 /min Ivelisse Lue [facility] 04-15-2022 08:57-0500 Systolic blood pressure 122 mm[Hg] Ivelisse Lue [facility] 03-10-2022 11:30-0500 Body height 170.18 cm Raul Quan Other [facility] [employer] Other 03-10-2022 11:30-0500 Body mass index (BMI) [Ratio] 21.2 kg/m2 Raul Quan Other [facility] Other 03-10-2022 11:30-0500 Body temperature 97.8 [degF] Raul Quan Other [facility] Other 03-10-2022 11:30-0500 Body weight 61.42 kg Raul Quan Other [facility] Other 03-10-2022 11:30-0500 Diastolic blood pressure 64 mm[Hg] Raul Quan Other [facility] Other 03-10-2022 11:30-0500 SaO2% (BldA) [Mass fraction] 98 % Raul Quan Other [facility] Other 03-10-2022 11:30-0500 Systolic blood pressure 108 mm[Hg] Raul Quan Other [facility] Other 02-25-2022 11:09-0500 Blood Pressure Location ADALGISA ANTOINE [facility] 02-25-2022 11:09-0500 Diastolic blood pressure 63 mm[Hg] ADALGISA ARASH [facility] 02-25-2022 11:09-0500 Heart rate 64 /min ADALGISA ARASH [facility] 02-25-2022 11:09-0500 Systolic blood pressure 105 mm[Hg] ADALGISA ARASH [facility] 02-18-2022 14:12-0500 Blood Pressure Location ADALGISA ANTOINE [facility] 02-18-2022 14:12-0500 Diastolic blood pressure 83 mm[Hg] ADALGISA BUSHRY [facility] 02-18-2022 14:12-0500 Heart rate 70 /min ADALGISA BUSHRY [facility] 02-18-2022 14:12-0500 Systolic blood pressure 142 mm[Hg] ADALGISA BUSHRY [facility] 02-11-2022 08:42-0500 Blood Pressure Location Ivelisse Lue [facility] 02-11-2022 08:42-0500 Diastolic blood pressure 73 mm[Hg] Ivelisse Lue [facility] 02-11-2022 08:42-0500 Heart rate 68 /min Ivelisse Lue [facility] 02-11-2022 08:42-0500 Respiratory rate 16 /min Ivelisse Lue [facility] 02-11-2022 08:42-0500 Systolic blood pressure 150 mm[Hg] Ivelisse Lue [facility] 02-05-2022 08:00-0500 Body temperature 99.1 [degF] DO Shailesh Ball Work Phone: [facility] 02-05-2022 08:00-0500 Diastolic blood pressure 76 mm[Hg] DO Shailesh Ball Work Phone: [facility] 02-05-2022 08:00-0500 Heart rate 78 /min DO Shailesh Ball Work Phone: [facility] 02-05-2022 08:00-0500 Respiratory rate 16 /min DO Shailesh Ball Work Phone: [facility] 02-05-2022 08:00-0500 SaO2% (BldA) [Mass fraction] 95 % DO Shailesh Ball Work Phone: [facility] 02-05-2022 08:00-0500 Systolic blood pressure 168 mm[Hg] DO Shailesh Ball Work Phone: [facility] 02-05-2022 03:21-0500 Body weight 64.1 kg DO Shailesh Ball Work Phone: [facility] 02-04-2022 11:43-0500 Inhaled oxygen flow rate 6 L/min DO Shailesh Ball Work Phone: [facility] 02-04-2022 09:31-0500 Body height 167.64 cm DO Shailesh Ball Work Phone: [facility] 02-04-2022 09:31-0500 Body mass index (BMI) [Ratio] 23.3 kg/m2 DO Shailesh Ball Work Phone: [facility] 01-20-2022 12:30-0500 Body height 170.18 cm Raul Quan Other [facility] Other 01-20-2022 12:30-0500 Body mass index (BMI) [Ratio] 21.92 kg/m2 Raul Quan Other [facility] Other 01-20-2022 12:30-0500 Body temperature 97.7 [degF] Raul Quan Other [facility] Other 01-20-2022 12:30-0500 Body weight 63.5 kg Raul Quan Other [facility] Other 01-20-2022 12:30-0500 Diastolic blood pressure 64 mm[Hg] Raul Buehrer Other [facility] Other 01-20-2022 12:30-0500 SaO2% (BldA) [Mass fraction] 99 % Raul Buehrer Other [facility] Other 01-20-2022 12:30-0500 Systolic blood pressure 116 mm[Hg] Raul Buehrer Other [facility] Other 01-05-2022 11:15-0400 Body height 170.18 cm Raul Buehrer Other [facility] Other 01-05-2022 11:15-0400 Body mass index (BMI) [Ratio] 21.92 kg/m2 Raul Buehrer Other [facility] Other 01-05-2022 11:15-0400 Body temperature 96 [degF] Raul Buehrer Other [facility] Other 01-05-2022 11:15-0400 Body weight 63.5 kg Raul Buehrer Other [facility] Other 01-05-2022 11:15-0400 Diastolic blood pressure 58 mm[Hg] Raul Buehrer Other [facility] Other 01-05-2022 11:15-0400 SaO2% (BldA) [Mass fraction] 99 % Raul Buehrer Other [facility] Other 01-05-2022 11:15-0400 Systolic blood pressure 100 mm[Hg] Raul Buehrer Other [facility] Other 11-24-2021 12:30-0400 Body height 170.18 cm Tamar Perea Other [facility] Other 11-24-2021 12:30-0400 Body mass index (BMI) [Ratio] 21.92 kg/m2 Tamar Perea Other [facility] Other 11-24-2021 12:30-0400 Body temperature 97.5 [degF] Tamar Perea Other [facility] Other 11-24-2021 12:30-0400 Body weight 63.5 kg Tamar Perea Other [facility] Other 11-24-2021 12:30-0400 Diastolic blood pressure 50 mm[Hg] Tamar Perea Other [facility] Other 11-24-2021 12:30-0400 SaO2% (BldA) [Mass fraction] 98 % Tamar Perea Other [facility] Other 11-24-2021 12:30-0400 Systolic blood pressure 96 mm[Hg] Tamar Perea Other [facility] Other 10-21-2021 07:30-0400 50 1 Shailesh Dunham Work Phone: [facility] [place] Work Phone: Comment on above: [id number] 10-15-2021 08:27-0400 Body height 167.64 cm DO Shailesh Dunham Work Phone: [facility] 10-15-2021 08:27-0400 Body temperature 97.7 [degF] DO Shailesh Ball Work Phone: [facility] 10-15-2021 08:27-0400 Body weight 66 kg DO Shailesh Ball Work Phone: [facility] 10-15-2021 08:27-0400 Diastolic blood pressure 75 mm[Hg] DO Shailesh Ball Work Phone: [facility] 10-15-2021 08:27-0400 Heart rate 73 /min DO Shailesh Ball Work Phone: [facility] 10-15-2021 08:27-0400 Respiratory rate 16 /min DO Shailesh Ball Work Phone: [facility] 10-15-2021 08:27-0400 SaO2% (BldA) [Mass fraction] 97 % DO Shailesh Ball Work Phone: [facility] 10-15-2021 08:27-0400 Systolic blood pressure 143 mm[Hg] DO Shailesh Ball Work Phone: [facility] 09-30-2021 13:30-0400 Body height 170.18 cm Tamar Perea Other [facility] Other 09-30-2021 13:30-0400 Body mass index (BMI) [Ratio] 24.27 kg/m2 Tamar Perea Other [facility] Other 09-30-2021 13:30-0400 Body temperature 97.4 [degF] Tamar Perea Other [facility] Other 09-30-2021 13:30-0400 Body weight 70.31 kg Tamar Perea Other [facility] Other 09-30-2021 13:30-0400 Diastolic blood pressure 70 mm[Hg] Tamar Ruttino Other [facility] Other 09-30-2021 13:30-0400 SaO2% (BldA) [Mass fraction] 98 % Tamar Perea Other [facility] Other 09-30-2021 13:30-0400 Systolic blood pressure 140 mm[Hg] Tamar Martinezjerardoo Other [facility] Other 09-15-2021 11:00-0400 Body height 170.18 cm Tamar Perea Other [facility] Other 09-15-2021 11:00-0400 Body mass index (BMI) [Ratio] 24.27 kg/m2 Tamar Zhuo Other [facility] Other 09-15-2021 11:00-0400 Body temperature 96.4 [degF] Tamar Perea Other [facility] Other 09-15-2021 11:00-0400 Body weight 70.31 kg Tamar Perea Other [facility] Other 09-15-2021 11:00-0400 Diastolic blood pressure 72 mm[Hg] Tamar Martinezmoy Other [facility] Other 09-15-2021 11:00-0400 SaO2% (BldA) [Mass fraction] 98 % Tamar Martinezjerardoo Other [facility] Other 09-15-2021 11:00-0400 Systolic blood pressure 138 mm[Hg] Tamar Martinezjerardoo Other [facility] Other 07-28-2021 10:45-0400 Body height 170.18 cm Raul Osoriojakub Other [facility] Other 07-28-2021 10:45-0400 Body mass index (BMI) [Ratio] 24.27 kg/m2 Raul Quan Other [facility] Other 07-28-2021 10:45-0400 Body temperature 96.6 [degF] Raul Osoriojakub Other [facility] Other 07-28-2021 10:45-0400 Body weight 70.31 kg Raul Osoriojakub Other [facility] Other 07-28-2021 10:45-0400 Diastolic blood pressure 78 mm[Hg] Raulchristiana Quan Other [facility] Other 07-28-2021 10:45-0400 SaO2% (BldA) [Mass fraction] 98 % Raul Lawrencemary ann Other [facility] Other 07-28-2021 10:45-0400 Systolic blood pressure 190 mm[Hg] Raul Avelina Other [facility] Other Encounters Encounter Date Encounter Type Care Provider Facility [facility] Start: 10-16-2024 End: 10-16-2024 ambulatory ARUN [facility] Start: 10-09-2024 End: 10-09-2024 ambulatory JOEL SPR[facility] Start: 09-25-2024 ambulatory ARUN [facility] Start: 09-19-2024 ambulatory KEATON [facility] Start: 09-13-2024 End: 09-13-2024 ambulatory Shailesh Dunham DO Work Phone: [facility] Work Phone: Start: 09-13-2024 End: 09-13-2024 Patient encounter procedure Shailesh Dunham DO [facility] Work Phone: Start: 09-12-2024 ambulatory JEZ [facility] Start: 09-05-2024 Non-patient / Non-visit Maureen Kelley CMA -[facility] Work Phone: Start: 09-04-2024 Evaluation and management of inpatient [facility] Start: 09-04-2024 Evaluation and management of inpatient ARUN DAYAMI [facility] Start: 09-02-2024 End: 09-04-2024 Evaluation and management of inpatient [facility] Start: 09-02-2024 Non-[facility] / [facility] Start: 09-01-2024 Non-patient / [facility] Work [facility]: Start: 08-31-2024 ambulatory ZIAChavez DOOLEY [facility] Start: 08-31-2024 End: 08-31-2024 ambulatory HARIKA LIRIANO [facility] Start: 08-22-2024 Non-patient / Non-[facility] Work [facility]: Start: 08-15-2024 End: 08-15-2024 ambulatory JEZ [facility] Start: 08-14-2024 End: 08-14-2024 ambulatory [facility] Work Phone: Start: 08-14-2024 End: 08-14-2024 Patient encounter procedure [facility] Work Phone: Start: 08-10-2024 End: 08-10-2024 ambulatory [facility] Start: 08-10-2024 End: 08-10-2024 ambulatory [facility] Start: 08-07-2024 Non-patient / Non-visit [facility] Work Phone: Start: 08-04-2024 Evaluation and management of inpatient ARTEMIO PALMA [facility] Start: 08-03-2024 Evaluation and management of inpatient SAMMIE CORRAL [facility] Start: 08-02-2024 Evaluation and management of inpatient PILY OSPINA [facility] Start: 08-02-2024 Evaluation and management of inpatient CHRIS CHAVEZ [facility] Start: 08-02-2024 Evaluation and management of inpatient ESTUARDO [facility] Start: 08-02-2024 Evaluation and management of inpatient HAILE BLAIR [facility] Start: 08-01-2024 Evaluation and management of inpatient [facility] Start: 08-01-2024 End: 08-06-2024 Evaluation and management of inpatient LAZARA CARDOSO [facility] Start: 08-01-2024 End: 08-01-2024 ambulatory ESTUARDO [facility] Start: 07-28-2024 ambulatory JEZ CERDA [facility] Start: 07-18-2024 Non-patient / Non-visit [facility] Work Phone: Start: 07-12-2024 End: 07-12-2024 ambulatory [facility] Work Phone: Start: 07-12-2024 End: 07-12-2024 Patient encounter procedure [facility] Work Phone: Start: 07-10-2024 End: 07-10-2024 ambulatory [facility] Start: 07-03-2024 Non-patient / Non-visit [facility] Work Phone: Start: 06-29-2024 Evaluation and management of inpatient LEVY ROMAN [facility] Start: 06-29-2024 Evaluation and management of inpatient KEATON ROBLEDO [facility] Start: 06-27-2024 Evaluation and management of inpatient HELEN MATHEWS [facility] Start: 06-27-2024 [facility] Start: 06-27-2024 ambulatory [facility] Start: 06-27-2024 End: 06-30-2024 Evaluation and management of inpatient LEVY CHILDERS [facility] Start: 06-21-2024 Non-patient / Non-visit [facility] Work Phone: Start: 06-19-2024 ambulatory JEZ [facility] Start: 06-06-2024 End: 06-06-2024 ambulatory ESTUARDO [facility] Start: 05-30-2024 End: 05-30-2024 ambulatory ESTUARDO [facility] Start: 05-30-2024 End: 05-30-2024 ambulatory ESTUARDO [facility] Start: 05-25-2024 Non-patient / Non-visit [facility] Work Phone: Start: 05-23-2024 ambulatory [facility] Start: 05-03-2024 End: 05-04-2024 ambulatory [facility] Start: 04-26-2024 End: 04-26-2024 ambulatory [facility] Start: 04-19-2024 End: 04-19-2024 ambulatory [facility] Start: 04-18-2024 ambulatory SEYMOUR [facility] Start: 04-12-2024 End: 04-12-2024 ambulatory MOHAMAD ALGHOTHANI [facility] Start: 03-21-2024 End: 03-21-2024 ambulatory [facility] Start: 01-19-2024 End: 01-19-2024 ambulatory CHUN BRYANT [facility] Start: 01-18-2024 End: 01-18-2024 ambulatory [facility] Start: 01-11-2024 End: 01-11-2024 ambulatory DO Shailesh Ball Work Phone: [facility] Work Phone: Start: 01-11-2024 End: 01-11-2024 Patient encounter procedure DO Shailesh Ball Work Phone: [facility] Vascular Surgery Work Phone: Start: 12-22-2023 End: 12-22-2023 ambulatory DO Shailesh Ball Work Phone: [facility] Work Phone: Start: 12-22-2023 End: 12-22-2023 Patient encounter procedure DO Shailesh Ball Work Phone: [facility] Work Phone: Start: 12-17-2023 Non-patient / Non-visit DO Ryder yanna Ball Work Phone: [facility] Work Phone: Start: 11-23-2023 Patient encounter procedure DO Shailesh Ball Work Phone: [facility] Start: 11-23-2023 End: 11-23-2023 ambulatory DO Shailesh Ball Work Phone: [facility] Work Phone: Start: 11-23-2023 End: 11-23-2023 Patient encounter procedure DO Shailesh Ball Work Phone: [facility] Work Phone: Start: 11-15-2023 End: 11-15-2023 ambulatory DO Shailesh Ball Work Phone: [facility] Work Phone: Start: 11-15-2023 End: 11-15-2023 Patient encounter procedure DO Shailesh Ball Work Phone: [facility] Vascular Surgery Work Phone: Start: 11-09-2023 Non-patient / Non-visit DO Ryder yanna Ball Work Phone: [facility] Work Phone: Start: 10-27-2023 End: 10-27-2023 ambulatory CHUN Melgoza [facility] Start: 10-26-2023 Non-patient / Non-visit DO Ryder yanna Ball Work Phone: [facility] Work Phone: Start: 10-21-2023 End: 10-21-2023 ambulatory DO Shailesh Ball Work Phone: [facility] Work Phone: Start: 10-21-2023 End: 10-21-2023 Patient encounter procedure DO Shailesh Ball Work Phone: [facility] Work Phone: Start: 10-18-2023 Non-patient / Non-visit DO Ryder yanna Ball Work Phone: [facility] Work Phone: Start: 10-17-2023 Non-patient / Non-visit DO Ryder yanna Ball Work Phone: [facility] Work Phone: Start: 10-16-2023 End: 10-17-2023 Non-patient / Non-visit DO Shailesh Ball Work Phone: [facility] Work Phone: Start: 10-16-2023 Non-patient / Non-visit DO Ryder yanna Ball Work Phone: [facility] Work Phone: Start: 10-15-2023 End: 10-17-2023 Non-patient / Non-visit DO Shailesh Ball Work Phone: [facility] Work Phone: Start: 10-14-2023 End: 10-17-2023 Non-patient / Non-visit DO Shailesh Ball Work Phone: [facility] Work Phone: Start: 10-14-2023 Non-patient / Non-visit DO Ryder yanna Ball Work Phone: [facility] Work Phone: Start: 09-03-2023 End: 09-03-2023 ambulatory DO Shailesh Ball Work Phone: [facility] Work Phone: Start: 09-03-2023 End: 09-03-2023 Patient encounter procedure DO Shailesh Ball Work Phone: [facility] Work Phone: Start: 08-31-2023 End: 08-31-2023 Patient encounter procedure DO Shailesh Ball Work Phone: [facility] Work Phone: Start: 08-31-2023 End: 08-31-2023 ambulatory DO Shailesh Ball Work Phone: [facility] Work Phone: Start: 08-27-2023 End: 08-27-2023 ambulatory DO Shailesh Ball Work Phone: [facility] Work Phone: Start: 08-27-2023 End: 08-27-2023 Patient encounter procedure DO Shailesh Ball Work Phone: [facility] Work Phone: Start: 08-19-2023 End: 08-19-2023 ambulatory DO Shailesh Ball Work Phone: [facility] Work Phone: Start: 08-19-2023 End: 08-19-2023 Patient encounter procedure DO Shailesh Ball Work Phone: [facility] Card[facility] Work Phone: Start: 07-27-2023 End: 07-27-2023 ambulatory JEZ CORREA Not Available Start: 07-05-2023 End: 07-05-2023 ambulatory DO Shailesh Ball Work Phone: [facility] Work Phone: Start: 07-05-2023 End: 07-05-2023 Patient encounter procedure DO Shailesh Ball Work Phone: [facility] Vascular Surgery Work Phone: Start: 06-22-2023 End: 06-22-2023 ambulatory DO Shailesh Ball Work Phone: [facility] Work Phone: Start: 06-22-2023 End: 06-22-2023 Patient encounter procedure DO Shailesh [facility] Work Phone: [facility] [facility] Work Phone: Start: 06-16-2023 End: 06-16-2023 Patient encounter procedure DO Shailesh Ball Work Phone: [facility] [place] Work Phone: Start: 06-16-2023 End: 06-16-2023 ambulatory DO Shailesh Ball Work Phone: [facility] Work Phone: Start: 05-04-2023 End: 05-05-2023 ambulatory Ivelisse Hassan [facility] Start: 05-04-2023 End: 05-04-2023 Lab Drop off Ivelisse Hassan [facility] Start: 05-04-2023 End: 05-04-2023 Patient encounter procedure Ivelisse Hassan [facility] Start: 04-28-2023 End: 04-29-2023 ambulatory Ivelisse Hassan Facility::[id number] Start: 04-26-2023 Non-patient / Non-visit DO Ryder Dunham Work Phone: [facility] Work Phone: Start: 04-20-2023 Non-patient / Non-visit DO Ryder Dunham Work Phone: [facility] Work Phone: Start: 04-20-2023 Non-patient / Non-visit DO Ryder Dunham Work Phone: [facility] Work Phone: Start: 04-14-2023 End: 04-14-2023 ambulatory Shailesh Dunham Other [facility] Other Start: 04-14-2023 Encounter for other preprocedural examination Shailesh Dunham [facility] Start: 04-14-2023 Office outpatient vi sit 15 minutes Shailesh Dunham [facility] Start: 04-08-2023 End: 04-08-2023 ambulatory Shailesh Dunham Other [facility] Other Start: 04-08-2023 Telephone encounter Shailesh Dunham [facility] Start: 04-05-2023 End: 04-05-2023 ambulatory Shailesh Dunham Other [facility] Other Start: 04-05-2023 Telephone encounter Shailesh Dunham [facility] Start: 04-04-2023 End: 04-04-2023 ambulatory Raul Quan Other [facility] Other Start: 04-04-2023 Telephone encounter Raul Quan [facility] Start: 03-29-2023 End: 03-29-2023 ambulatory Shailesh Dunham Other [facility] Other Start: 03-29-2023 Transitional care ellen antonina srvc 14 day discharge Shailesh Dunham [facility] Start: 03-29-2023 End: 03-29-2023 Patient encounter procedure DO Shailesh Dunham Work Phone: [facility]- Start: 03-25-2023 End: 03-25-2023 ambulatory Raul Quan Other [facility] Other Start: 03-25-2023 Telephone encounter Raul Quan [facility] Start: 03-24-2023 End: 03-25-2023 ambulatory Ivelisse Hassan Facility:CD:[id number] Start: 01-13-2023 End: 01-14-2023 ambulatory Ivelisse Hassan Facility:[facility] [place] Start: 01-13-2023 End: 01-13-2023 Patient encounter procedure Ivelisse Hassan [facility] Start: 11-10-2022 Office outpatient vi sit 25 minutes Raul Quan [facility] Start: 11-10-2022 End: 11-10-2022 ambulatory DO Shailesh Dunham Work Phone: [facility] Other Start: 11-10-2022 End: 11-10-2022 Patient encounter procedure DO Shailesh Dunham Work Phone: [facility] Start: 10-07-2022 End: 10-08-2022 ambulatory Ivelisse Hassan Facility:[facility] [place] Start: 10-07-2022 End: 10-07-2022 Patient encounter procedure Ivelisse Hassan [facility] [place] Start: 08-04-2022 End: 08-04-2022 ambulatory Raul Quan Other [facility] Other Start: 08-04-2022 Postop follow up vis it related to original px Raul Quan [facility] Start: 07-28-2022 End: 07-29-2022 ambulatory Ivelisse M. Lue Facility:[facility] [place] Start: 07-14-2022 ambulatory Ivelisse M. Lue Facility:C D:[id number] Start: 07-09-2022 End: 07-09-2022 ambulatory Shailesh Dunham Other [facility] Other Start: 07-09-2022 Telephone encounter Shailesh Dunham [facility] Start: 07-08-2022 End: 07-08-2022 ambulatory Shailesh Dunham Other [facility] Other Start: 07-08-2022 Telephone encounter Shailesh Dunham [facility] Start: 07-08-2022 End: 07-09-2022 Evaluation and management of inpatient DO Shailesh Dunham Work Phone: [facility] [place] [facility] Work Phone: Start: 07-01-2022 End: 07-01-2022 ambulatory DO Shailesh Dunham Work Phone: [facility] Work Phone: Start: 07-01-2022 End: 07-01-2022 Patient encounter procedure DO Shailesh Ball Work Phone: [facility] Work Phone: Start: 06-24-2022 End: 06-25-2022 ambulatory Ivelisse Porras. Lue Facility:[facility] Start: 06-24-2022 End: 06-24-2022 Patient encounter procedure Ivelisse Hassan [facility] Start: 05-21-2022 End: 05-21-2022 ambulatory Shailesh Dunham Other [facility] Other Start: 05-21-2022 Patient encounter procedure Shailesh Dunham [facility] Start: 05-19-2022 End: 05-19-2022 ambulatory Tamar Martinezjreardosb Other [facility] Other Start: 05-19-2022 Follow-up encounter Tamar [facility] Start: 05-13-2022 End: 05-13-2022 ambulatory Raul Quan Other [facility] Other Start: 05-13-2022 Telephone encounter Raul Quan [facility] Start: 05-11-2022 End: 05-11-2022 ambulatory DO Shailesh Dunham Work Phone: [facility] Work Phone: Start: 05-11-2022 End: 05-11-2022 Patient encounter procedure DO Shailesh Dunham Work Phone: [facility] [place] Work Phone: Start: 04-23-2022 End: 04-23-2022 ambulatory Raul Quan Other [facility] Other Start: 04-23-2022 Telephone encounter Raul Quan [facility] Start: 04-15-2022 End: 04-15-2022 Lab Drop off Ivelisse Hassan [facility] Start: 04-15-2022 End: 04-15-2022 Patient encounter procedure Ivelisse Hassan [facility] Start: 04-14-2022 End: 04-14-2022 ambulatory Shailesh Dunham Other [facility] Other Start: 04-14-2022 Telephone encounter Shailesh Dunham [facility] Start: 03-10-2022 End: 03-10-2022 ambulatory Raul Quan Other [facility] Other Start: 03-10-2022 Office outpatient vi sit 25 minutes Raul Quan [facility] Start: 02-25-2022 End: 02-25-2022 Patient encounter procedure ADALGISA ANTOINE [facility] Start: 02-18-2022 End: 02-18-2022 Patient encounter procedure ADALGISA ANTOINE [facility] [employer] Start: 02-11-2022 End: 02-11-2022 Lab Drop off Ivelisse Hassan [facility] Start: 02-11-2022 End: 02-11-2022 Patient encounter procedure Ivelisse Hassan [facility] Start: 02-10-2022 End: 02-11-2022 ambulatory IVELISSE HASSAN . Facility: Start: 02-07-2022 Encounter for other preprocedural examination DR RAUL QUAN [facility] Start: 02-07-2022 Encounter for preprocedural laboratory examination DR RAUL QUAN [facility] Start: 02-04-2022 End: 02-05-2022 Evaluation and management of inpatient DO Shailesh Dunham Work Phone: [facility] [place] [facility] Start: 02-02-2022 End: 02-03-[address] RAUL QUAN Facility:[facility] Start: 02-02-2022 End: 02-03-2022 Encounter for other preprocedural examination DR RAUL QUAN Facility:[facility] Start: 01-20-2022 Office outpatient vi sit 25 minutes Raul Quan [facility] Start: 01-20-2022 End: 01-20-2022 ambulatory DO Shailesh Dunham Work Phone: [facility] Other Start: 01-20-2022 End: 01-20-2022 Patient encounter procedure DO Shailesh Dunham Work Phone: [facility] Start: 01-05-2022 End: 01-05-2022 ambulatory Raul Quan Other [facility] Other Start: 01-05-2022 Office outpatient vi sit 25 minutes Raul Quan [facility] Start: 12-08-2021 End: 12-09-[address] SHAILESH DUNHAM Facility:[facility] Start: 12-02-2021 End: 12-02-[address] SHAILESH DUNHAM Facility:[facility] Start: 11-24-2021 End: 11-24-2021 ambulatory Tamar Perea Other [place] [employer] Other Start: 11-24-2021 Patient encounter procedure Tamar Perea [facility] Start: 11-11-2021 End: 11-11-[address] SHAILESH DUNHAM Facility:[facility] Start: 10-26-2021 End: 10-26-[address] SHAILESH DUNHAM Facility:[facility] Start: 10-21-2021 Patient encounter procedure Shailesh Dunham Work Phone: [facility] [address] [place] Work Phone: Start: 10-16-2021 Telephone encounter Judah Vivas MD Work Phone: [facility] 250 [place] Work Phone: Start: 10-15-2021 End: 10-15-2021 Evaluation and management of inpatient DO Shailesh Dunham Work Phone: [facility] [place] [facility] Start: 10-13-2021 End: 10-13-2021 Patient encounter procedure DO Shailesh Dunham Work Phone: [facility]-Pre-Surgical Testing Start: 10-06-2021 End: 10-06-2021 Patient encounter procedure DO Shailesh Dunham Work Phone: [facility]-Pre-Surgical Testing Start: 09-30-2021 End: 09-30-2021 ambulatory Tamar Perea Other [facility] Other Start: 09-30-2021 Encounter for other preprocedural examination Tamar Perea [facility] Start: 09-30-2021 Follow-up encounter [facility] Start: 09-22-2021 End: 09-23-[address] SHAILESH DUNHAM Facility:[facility] Start: 09-18-2021 End: 09-18-2021 Patient encounter procedure DO Shailesh Dunham Work Phone: [facility] [place] Start: 09-15-2021 End: 09-15-2021 ambulatory Tmaar Perea Other [facility] Other Start: 09-15-2021 Follow-up encounter [facility] Start: 08-27-2021 End: 08-27-2021 Patient encounter procedure DO Shailesh Dunham Work Phone: [facility] Start: 08-12-2021 End: 08-13-[address] KURTZ LISTED REQUEST Facility:[facility] Start: 07-28-2021 End: 07-28-2021 ambulatory Raul Quan Other [facility] Other Start: 07-28-2021 Office outpatient ne w 45 minutes Raul Quan [facility] Start: 06-13-2020 End: 06-13-2020 Patient encounter procedure Lisandra Sher Work Phone: [facility] Work Phone: Patient encounter status Judah Harrington MD Work Phone: [facility] 250 DO Work Phone: Procedures Date Procedure [...] Start: 01-11-2024 US scan of aorta DO [employer] Work Phone: Start: 12-17-2023 E coli Shiga Toxin EIA DO [employer] Phone: Start: 12-17-2023 Salmonella/Shigella Screen DO [employer] Work Phone: Start: 11-15-2023 Doppler ultrasonography of bilateral carotid arteries DO [employer] Work Phone: Start: 10-27-2023 Follow-up visit BRITTANYCHIO SALVADORHAILEY Start: 06-16-2023 Computed tomography of abdomen and pelvis with contrast DO [employer] Work Phone: Start: 05-04-2023 Cystoscopic removal of ureteric stent Ivelisse Hassan Start: 04-28-2023 Cystoscopic insertion of ureteric stent Ivelisse Lue Start: 11-10-2022 Doppler ultrasonography of bilateral carotid arteries DO [employer] Work Phone: Start: 07-28-2022 Cystourethroscopy with dilation of urethral stricture Ivelisse Hassan Start: 07-08-2022 Insertion of carotid artery stent DO Ryder Dunham [employer] Phone: Start: 05-11-2022 Computed tomography angiography of abdominal and/or pelvic blood vessel DO Shailesh Dunham [employer] Phone: Start: 05-11-2022 CT angiography of head DO Shailesh Dunham [employer] Phone: Start: 05-11-2022 CT angiography of neck vessels DO Josué fischer [employer] Phone: Start: 02-10-2022 PSA screening IVELISSE HASSAN . Comment on above: Performed By: #### DATA1C #### [facility] [address] [place] [address] Dr. Jodi Roman Start: 02-05-2022 Repair of aortic aneurysm using bifurcation graft Ivelisse Hassan Start: 02-04-2022 Endovascular repair of abdominal aortic aneurysm DO Shailesh Dunham [employer] Phone: Start: 01-20-2022 Doppler ultrasonography of bilateral carotid arteries DO Shailesh [employer] Phone: Start: 09-18-2021 Computed tomography angiography of abdominal and/or pelvic blood vessel DO Shailesh Dunham [employer] Phone: Start: 08-27-2021 US scan of aorta DO Shailesh [employer] Phone: Start: 08-27-2021 Doppler ultrasonography of bilateral carotid arteries DO Sahilesh [employer] Phone: Start: 06-13-2020 Imm. administration COVID19 [employer] Work Phone: Start: 06-13-2020 SARS-CoV-2 vaccine, 0.5ml [employer] Work Phone: Start: 10-18-2019 Transurethral prostatectomy Ivelisse Hassan Start: 04-06-2019 Cystoscope, device (physical object) Ivelisse Hassan Start: 10-06-2016 Colonoscopy Ivelisse Hassan Comment on above: 2010 Arthroscopy of knee Ivelisse reyes Catheterization of left heart Ivelisse Hassan Esophagogastroduodenoscopy K britany Hassan Plan of Treatment Date Care Activity Detail Author Start: 09-01-2023 ambulatory Ambulatory Facility: [place] Start: 08-19-2023 [facility] Start: 07-09-2022 [facility] Start: 07-08-2022 Hospital admission [facility] Start: 07-08-2022 Patient referral to dietitian [facility] Start: 02-05-2022 [facility] Start: 02-04-2022 [facility] Start: 02-04-2022 Hospital admission [facility] Start: 10-21-2021 STRESS NUC, Provider: SAL HHVI NUCLEAR 01,[id number], Status: Pen, Time: 7:30 AM STRESS NUC, Provider: SAL [facility]VI NUCLEAR 01,[id number], Status: Pen, Time: 7:30 AM -[facility] 250 DO Work Phone: Start: 10-15-2021 [facility] Work Phone: Start: 10-15-2021 OR Percutaneous EVAR AAA (Not Applicable) OR Percutaneous EVAR AAA (Not Applicable) [facility] Start: 10-15-2021 End: 10-15-2021 Evaluation and management of inpatient AAA (abdominal aortic aneurysm) [facility]-[address] [place] [address] Surgical Start: 10-13-2021 End: 10-13-2021 Patient encounter procedure Departed Clinical [facility]-Pre-Surgical Testing Comprehensive metabo lic 1999 panel - Serum or Plasma [facility] Comprehensive metabo lic 2000 panel - Serum or Plasma [facility] Holter monitor study [facility] Patient Education [facility] Work Phone: Patient referral [facility] Work Phone: US Gallbladder [facility] Heart limited [facility] Heart Transthoracic [facility] Thoracic and abdo sebastian aorta [facility] Thoracic and abdo sebastian aorta [facility] Thoracic and abdo sebastian aorta [facility] US.doppler Carotid arteries - bilateral [facility] US.doppler Carotid arteries - bilateral [facility] US.doppler Carotid arteries - bilateral [facility] Immunizations Immunization Date Immunization Notes Care Provider David holloway 06-13-2020 Rodney and Rodney COVID 19 Vaccine [facility] Comment on above: Note: Patient tolera shyann well. No signs or symptoms of adverse reactions. Patient waited a minimum of 15 minutes. NEGATED: Highlighted row has not occurred!01-13-2023 influenza virus vaccine, unspecified formulation Ivelisse Mo [facility] Payers Date Payer Category Payer Self-pay [id number] 2020 Unknown [id number] 1959 Self-pay [id number] 1959 Unknown [id number] 1959 Unknown [id number] 1959 Unknown [id number] 1942 Unknown [id number] 2.16.84 0.1.822574.3.579.2.593 1942 Unknown [id number] 2.16.84 0.1.915688.3.579.2.593 1942 Unknown [id number] 2.16.84 0.1.884275.3.579.2.593 1942 Unknown [id number] 2.16.84 0.1.389176.3.579.2.593 1942 Unknown [id number] 2.16.84 0.1.376588.3.579.2.593 1942 Unknown [id number] 2.16.84 0.1.538345.3.579.2.593 1942 Unknown [id number] 2.16.84 0.1.646219.3.579.2.593 1942 Unknown [id number] 2.16.8 40.1.970755.3.579.2.727 1942 Unknown [id number] 2.16.8 40.1.024402.3.579.2.727 1942 Unknown [id number] 2.16.8 40.1.742928.3.579.2.727 1942 Unknown [id number] 2.16.8 40.1.814312.3.579.2.727 1942 Unknown [id number] 2.16.8 40.1.765200.3.579.2.727 1942 Unknown [id number] 2.16.8 40.1.172405.3.579.2.727 1942 Unknown [id number] 2.16.8 40.1.646485.3.579.2.727 1942 Unknown [id number] 2.16.8 40.1.697816.3.579.2.727 1942 Unknown [id number] 2.16.8 40.1.907639.3.579.2.727 1942 Unknown [id number] 2.16.84 0.1.192457.3.579.2.1259 Unknown Unknown [facility] [id number] Unknown [id number] 2.16.84 0.1.470224.3.579.2.593 Unknown [id number] 2.16.8 40.1.468046.3.579.2.531 Unknown [id number] 2.16.8 40.1.938356.3.579.2.531 Unknown [id number] 2.16.8 40.1.784062.3.579.2.531 Unknown [id number] 2.16.8 40.1.501611.3.579.2.531 Unknown [id number] 2.16.8 40.1.804425.3.579.2.531 Social History Date Type Detail Facility Tobacco smoking status Unknown i f ever smoked [facility] Work Phone: Start: 03-08-1955 End: 03-08-1996 Sex Assigned At [facility] Start: 10-15-2021 End: 08-19-2023 Tobacco smoking status NHIS Ex-smoker (finding) [facility] Start: 1940 Sex Assigned At Male F [facility] Tobacco smoking status Never [facility] [place] Start: 07-12-2024 End: 08-14-2024 Sex Male (finding) [facility] Medical Equipment Procedure Code Equipment Code Equipment Origin al Text Equipment Identifier Dates Transcarotid artery revascularization (TCAR) Bare-metal carotid artery stent ()[id number] FDA Start: 07-08-2022 Transcarotid artery revascularization (TCAR) Bare-metal carotid artery stent ()[id number] FDA Start: 07-08-2022 Percutaneous endovascular repair of abdominal aortic aneurysm (AAA) Abdominal aorta endovascular stent-graft ()[id number] FDA Start: 02-04-2022 Percutaneous endovascular repair of abdominal aortic aneurysm (AAA) Abdominal aorta endovascular stent-graft ()[id number] FDA Start: 02-04-2022 Percutaneous endovascular repair of abdominal aortic aneurysm (AAA) Abdominal aorta endovascular stent-graft ()[id number] FDA Start: 02-04-2022 Goals Date Patient Goal Desired Activity /State Functional Status Date Assessment Result Facility 05-04-2023 Functional Status N/A [facility] 01-13-2023 Functional Status N/A [facility] 10-07-2022 Functional Status N/A [facility] 07-09-2022 Functional status Patient is Pro gressing Toward Baseline [facility] Work Phone: 06-24-2022 Functional Status N/A [facility] 04-15-2022 Functional Status N/A [facility] 02-25-2022 Functional Status N/A [facility] 02-18-2022 Functional Status N/A [facility] 02-11-2022 Functional Status N/A [facility] 02-05-2022 Functional status Patient at Baseline [facility] Work Phone: 10-15-2021 Functional status Patient at Baseline [facility] Work Phone: Mental Status Date Assessment Result Facility 07-09-2022 Cognitive function Cognitive Sta tus Patient is Progressing Toward Baseline [facility] Work Phone: 02-05-2022 Cognitive function Cognitive Sta tus Patient at Baseline [facility] Work Phone: 10-15-2021 Cognitive function Cognitive Sta tus Patient at Baseline [facility] Work Phone: Clinical Notes 04-18-2020 to 10-16-2024 Note Date & Type Note Facility 10-16-2024 Note [facility] 10-09-2024 Note [facility] 09-25-2024 Note [facility] 09-19-2024 Note [facility] 09-04-2024 Note [facility] 09-04-2024 Note -Status post EVAR in January 25 [facility] 09-04-2024 Note -Status post stent p lacement. continue with aspirin and statin [facility] 09-04-2024 Note high sensitive tropo libby mildly elevated. -Continue trending. Continue with heparin drip. -Patient with history of CAD status post multiple PCI's. continue with Plavix, metoprolol and pravastatin -cardiology on board. [facility] 09-04-2024 Note -cardiology on board , Continue with amiodarone drip. - continue with heparin drip. Pending PPM/ablation -continue monitoring on telemetry [facility] 09-04-2024 Note -Status post loop re robbin placement. Currently on amiodarone drip. [facility] 09-04-2024 Note -Continue home medic ation including losartan, hydralazine and metoprolol. [facility] 09-04-2024 Note -Status post recent TAVR JulyMay 2024. [facility] 09-04-2024 Note [facility] 09-04-2024 Note [facility] 09-04-2024 Note SW consult for C-O T/PT SW received a phone call from [facility] confirming they have ongoing services with this patient. SW added to AVS. [facility] 09-04-2024 Note [facility] 09-03-2024 Note high sensitive tropo libby mildly elevated. -Continue trending. Continue with heparin drip. -Patient with history of CAD status post multiple PCI's. continue with Plavix, metoprolol and pravastatin -cardiology on board. [facility] 09-03-2024 Note -Status post recent TAVR JulyMay 2024. [facility] 09-03-2024 Note -Status post stent p lacement. continue with aspirin and statin [facility] 09-03-2024 Note -Status post loop re robbin placement. Currently on amiodarone drip. [facility] 09-03-2024 Note -Continue home medic ation including losartan, hydralazine and metoprolol. [facility] 09-03-2024 Note high sensitive tropo libby mildly elevated. -Continue trending. Continue with heparin drip. -Patient with history of CAD status post multiple PCI's. continue with Plavix, metoprolol and pravastatin -cardiology on board. [facility] 09-03-2024 Note -cardiology on board , patient is currently on amiodarone drip. -They also switched his Eliquis to heparin drip in case he will need intervention ( ablation/PPM) -continue monitoring on telemetry [facility] 09-03-2024 Note -Status post EVAR in January 25 [facility] 09-03-2024 Note [facility] 09-02-2024 Note Patient has history of paroxysmal atrial fibrillation. 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 requested EKG to be ordered for noted irregular rhythm during echo Harika Liriano [facility] Cardiology Available 7a-3pm via [employer] [phone] [facility] 08-15-2024 Note [facility] 08-10-2024 Note [facility] 08-10-2024 Note [facility] 08-06-2024 Note [facility] 08-06-2024 Note [facility] 08-05-2024 Note [facility] 08-05-2024 Note S/p EVAR [facility] Rate controlled Continue Eliquis 2.5 mg twice a day [facility] 08-05-2024 Note Continue pravastatin [facility] 08-05-2024 Note S/p PCI mid LAD, OM1 , balloon angioplasty of OM 2 Continue Plavix [facility] 08-05-2024 Note Continue daily MiraLAX [facility] 08-05-2024 Note X-ray done showed ch ronic granulomatous infiltrates. Patient denies any cough/shortness of breath [facility] 08-05-2024 Note S/p TAVR 08/01 [facility] 08-05-2024 Note Blood and urine cult ures pending Leukocytosis Resolved. Monitor for any ongoing fever. [facility] 08-05-2024 Note Urinalysis positive for UTI Urine culture pending Treat empirically with ceftriaxone [facility] 08-05-2024 Note [facility] 08-05-2024 Note [facility] 08-04-2024 Note [facility] 08-04-2024 Note [facility] 08-04-2024 Note [facility] 08-04-2024 Note S/p EVAR January 2022 [facility] 08-04-2024 Note S/p PCI mid LAD, OM1 , balloon angioplasty of OM 2 Continue Plavix [facility] 08-04-2024 Note S/p TAVR 08/01 [facility] 08-04-2024 Note X-ray done showed ch ronic granulomatous infiltrates. Patient denies any cough/shortness of breath [facility] 08-04-2024 Note Blood and urine cult ures pending Leukocytosis is improving. [facility] 08-04-2024 Note Urinalysis positive for UTI Urine culture pending Treat empirically with ceftriaxone [facility] 08-04-2024 Note Continue daily MiraLAX [facility] 08-04-2024 Note Rate controlled Resume Eliquis 2.5 mg twice a day [facility] 08-04-2024 Note Continue pravastatin [facility] 08-04-2024 Note [facility] 08-04-2024 Note [facility] 08-03-2024 Note Diet statin [facility] 08-03-2024 Note [facility] 08-03-2024 Note As above [facility] 08-03-2024 Note As above Awaiting blood cultures and urine cultures will continue antibiotic for now [facility] 08-03-2024 Note [facility] 08-03-2024 Note Telemetry rate contr ol as infiltrate above Eliquis to be resumed once hematoma stabilized [facility] 08-03-2024 Note [facility] 08-03-2024 Note [facility] 08-03-2024 Note [facility] 08-03-2024 Note [facility] 08-03-2024 Note [facility] 08-02-2024 Note [facility] 08-02-2024 Note [facility] 08-01-2024 Note [facility] 08-01-2024 Note [facility] 07-12-2024 Evaluation note Diagnosis Onset Date Resolution [...] replacement) Jul, 2024 acute August 142024 11:39am [facility] Work Phone: 1(815) 382-722205-07-2025 Evaluation note* Diagnosis Onset Date Resolution Status [...] Jul, 2024 acute September 13, 2024 11:37am [facility] Work Phone: 1(854) 865-766705-05-2025 [facility] 06-30-2024 [facility]Un[facility]04-25-2025 NoteUn[facility]04-25-2025 [facility]Un[facility] 06-29-2024 [facility]Un[facility]04-24-2025 Note- Patient with recent cholecystectomy and partial liver resection, continue outpatient follow-up with the general surgeryUnUniversity [facility] 06-29-2024 Note- [facility]- Loop recorder in place - Holding eliquis per pulmonology recommendation. Plan is to hold for 1 week [facility]04-24-2025 Note- S/p EVARUnUniversity [facility]04-24-2025 Note- Patient with severe aortic valve stenosis with [facility] future [facility]04-[facility]25 Note- Status post stentingUnUniversity [facility]04-24-2025 Note-Results of cardiac cath as noted in H&P -TAVR will be scheduled for a later dateUnUniversity Hospitals [facility] 06-29-2024 NoteUn[facility]04-24-2025 NoteUn[facility]04-24-2025 NoteUn[facility] 06-28-2024 Note- S/p EVARUn[facility]04-23-2025 Note- Status post stentingUnUniversity [facility]04-23-2025 Note- [facility]04-23-20[facility] Note- Loop recorder in place - Holding eliquis per pulmonology recommendationUnUniversity [facility]als [facility]04-23-2025 Note- Patient with severe aortic valve stenosis with plan for future TAVRUniPaulding [facility]04-23-20[facility]- Patient with recent cholecystectomy and partial liver resection, continue [facility] 06-28-2024 [facility]04-[facility]-2025 [facility]04-23-2025 [facility] 06-28-2024 [facility]Pro[facility]04-23-2025 NoteChart reviewed assessment and plan reviewed with nurse practitioner and agreedUnUniversity [facility]04-22-2025 [facility]Pro[facility] 06-27-2024 Note- Patient with recent cholecystectomy and partial liver resection, continue outpatient follow-up with the [facility] 06-27-2024 Note- Continue home medsUn[facility]Paul[facility]04-22-2025 Note- Loop recorder in place -Okay to continue Eliquis per cardiology team on 06/28/2024UnUniversity [facility]04-22-2025 Note- Patient with severe aortic valve stenosis with plan for future TAVRUniPaulding County Hospital04-22-2025 Note- Status post stentingUnUniversity [facility]04-22-2025 Note- S/p RADHAAR [facility]02-26-2025 [facility]Pro[facility]02-12-2025 [facility]Pro[facility]02-11-2025 Note [facility]02-11-2025 [facility]Pro[facility]02-11-2025 [facility]Pro[facility]02-05-2025 Note [facility]01-14-2025 [facility]-13-2024 [facility]11-12-2024 Note [facility]08-21-2024 [facility]Pro[facility]02-27-2024 Hospital Discharge instructions Patient Education 05/04/2023 [...] include: ?8 oz (237 mL) of milk, atolviw-zconqzjsobcl-bbezd milk, and calcium- fortifiedfruit juice. Calcium-fortified means [...] ?Spinach (cooked), rhubarb, beets, sweet potatoes, and Scottish chard. ?Peanuts. ?Potato chips, montserratian fries, and baked potatoes with skin on. ?Nuts and nut products. ?Chocolate. If you regularly take a diuretic medicine, make sure to eat at least 1 or 2 servings of fruits or vegetables that are high in potassium each day. These include: ?Avocado. ?Banana. ?Irwin, prune, carrot, or tomato juice. ?Baked potato. [...] magnesium, fish oil, or vitamin B6. Take loij-sfk-ihbvpto and prescription medicines only as told by [...] Casseroles. Pizza. Lasagna. Frozen meals. Potato chips. Finnish fries. The items listed above may not [...] provider. Document Revised: 06/04/2022 Document Reviewed: 06/04/2022 [employer] Patient Education 2022 [employer]. Follow Up Care 04/29/2023 08:42:17 With:Mo LEIJA, AKILAH Smith, URO Address: When:Within 4 Month(s) Comments:w/KEDAR [facility] 02-07-2024 Evaluation note* Encounter Date Diagnosis Assessment [...] this time and surgery could be scheduled. [facility] Other 02-07-2024 Evaluation note* Encounter Date Diagnosis [...] control to proceed with his next procedure. [facility] Other 02-01-2024 Evaluation note* Encounter Date Diagnosis Assessment Notes Treatment Notes Treatment Clinical Notes Apr, Primary hypertension (ICD-10 - I10) [facility] Other 01-29-2024 Evaluation note* Encounter Date Diagnosis Assessment Notes Treatment Notes Treatment Clinical Notes Mar, Primary hypertension (ICD-10 - I10) [facility] Other 01-28-2024 Evaluation note* Encounter Date Diagnosis Assessment Notes Treatment Notes Treatment Clinical Notes Mar, Primary hypertension (ICD-10 - I10) [facility] Other 01-22-2024 Evaluation note* Encounter Date Diagnosis [...] resolved INstructed on increasing fluids Restart ASA [facility] Other 11-08-2023 Hospital Discharge instructions Patient Education [...] urethra. Follow these instructions at home: Take ipsj-mod-isqvnys and prescription medicines only as told by [...] provider. Document Revised: 09/10/2021 Document Reviewed: 09/10/2021 [employer] Patient Education 2022 [employer]. Follow Up Care 10/07/2022 09:26:45 With:Mo LEIJA, AKILAH Smith, URO Address: When: Unknown [facility] 09-05-2023 Evaluation note* Encounter Date Diagnosis [...] in the office with a CT scan. [facility] Other 08-02-2023 Hospital Discharge instructions Patient Education [...] urethra. Follow these instructions at home: Take slju-xbj-xsohxmq and prescription medicines only as told by [...] provider. Document Revised: 09/10/2021 Document Reviewed: 09/10/2021 [employer] Patient Education 2022 [employer]. Follow Up Care 07/28/2022 10:29:31 With:Mo LEIJA, AKILAH Smith, URO Address: When:Within 3 Day(s) [facility]30[facility] Evaluation [facility]* Encounter Date Diagnosis Assessment [...] a couple of weeks. These have resolved. [facility] Other 05-04-2023 Discharge summary Author Raul Quan [facility] July 09, 2022 12:08pm Note Date/Time July 09, 2022 8:07am [facility] [address] [place] [address] Discharge Summary Signed Patient: Chico Baker MR#: [id number] : 1940 Acct:[id number] Age/Sex: 82 / M Adm Date: 3 Loc: Room: [address] [place] [address]: Raul Quan MD Copies to: [...] midline, neck is supple, no JVD. Bilateral clinic lead strength is equal. He has a little [...] <Electronically signed by MD Raul Quan> 07/09/22 0749 [facility] Work Phone: 1(474) 318-774405-03-2023 History and physical note Author Raul Quan [facility] July 08, 2022 11:06am Note Date/Time July 08, 2022 11:06a m [facility] [address] [place] [address] Vascular Surgery H&P Signed Patient: Chico Baker MR#: [id number] : 1940 Acct:[id number] Age/Sex: 82 / M Adm Date: 3 Loc: Room: [address] [place] [address] Type: ADM IN Attending Dr: Raul Quan [...] Signed By: <Electronically signed by MD Raul uQan> 07/08/22 1106 [facility] Work Phone: 1(585) 310-443504-19-2023 Hospital Discharge instructions Patient Education 06/24/2022 09:42:41 [...] Follow these instructions at home: Medicines Take apsp-rdo-qrytpdy and prescription medicines only as told by [...] or the blood stops without treatment. Take qvwg-ixv-vsxlqyq and prescription medicines only as told by your health care provider. Drink enough fluid to keep your urine pale yellow. This information is not intended to replace advice given to you by your health care provider. Make sure you discuss any questions you have with your health care provider. Document Revised: 10/23/2020 Document Reviewed: 10/23/2020 [employer] Patient Education 2022 [employer]. Follow Up Care 04/15/2022 10:15:03 With:Mo LEIJA, AKILAH Smith, URO Address: [address] [place] [address]- [phone] When: Unknown 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 Walk daily Inspect feet daily for cuts [facility] Other 03-14-2023 Evaluation note* Encounter Date Diagnosis [...] left TCAR procedure once he returns from [place] at the end of June beginning of July. We reviewed signs and symptoms of carotid occlusive disease and when would be appropriate to return for further evaluation prior to his next scheduled appointment. We will submit his imaging to [facility] for review and planning for future TCAR. Patient has prescription for Plavix which we will start prior to his TCAR procedure as well. They verbalized understanding of all discussion today, agree with plan, and denies any questions. [facility] Other 03-08-2023 Evaluation note* Encounter Date Diagnosis Assessment Notes Treatment Notes Treatment Clinical Notes May, Carotid stenosis, bilateral (ICD-10 - I65.23) CTA: < 50% right, 80% left [facility] Other 03-08-2023 Evaluation note* Encounter Date Diagnosis Assessment Notes Treatment Notes Treatment Clinical Notes May, Carotid stenosis, bilateral (ICD-10 - I65.23) CTA: < 50% right, 70% left - 05/2022 [facility] Other 02-08-2023 Hospital Discharge instructions Patient Education [...] prostate. Follow these instructions at home: Take uafk-qeb-ntyktbs and prescription medicines only as told by [...] 02/19/2001 Document Revised: 05/07/2018 Document Reviewed: 11/12/2016 [employer] Patient Education 2020 [employer] Follow Up Care 02/11/2022 10:55:52 With:Mo LEIJA, AKILAH Smith, URO Address: When: Unknown [facility] 02-07-2023 Evaluation note* Encounter Date Diagnosis Assessment Notes Treatment Notes Treatment Clinical Notes Apr, Primary hypertension (ICD-10 - I10) [facility] Other 01-03-2023 Evaluation note* Encounter Date Diagnosis [...] to perform simultaneously to minimize contrast exposure. [facility] Other 12-21-2022 Hospital Discharge instructions Patient Education 02/25/2022 12:02:33 Rash, Adult, Jbkl-xj-Oiwx Rash, Adult A rash is a change [...] with your condition: Medicine Take or apply cuel-gxo-trgyrln and prescription medicines only as told by [...] the rash from spreading. Take or apply kcvw-yms-dptccnv and prescription medicines only as told by [...] 08/10/2008 Document Revised: 06/16/2019 Document Reviewed: 09/26/2018 [employer] Patient Education 2020 [employer] Follow Up Care 02/18/2022 14:33:21 With:Ivelisse Hassan Address:Unknown When: Unknown Comments:Appointment has already been scheduled [facility] 12-14-2022 Hospital Discharge instructions Patient Education [...] including vitamins, herbs, eye drops, creams, and infm-mva-babpcdc medicines. Any problems you or family members [...] provider tells you to take them. Taking fpor-sqh-zosqzgi medicines, vitamins, herbs, and supplements. Eating and [...] 02/22/2006 Document Revised: 06/14/2019 Document Reviewed: 11/23/2018 [employer] Patient Education 2019 [employer]. Follow Up Care 02/17/2022 16:33:06 With:ADALGISA ANTOINE PA-C, URL Address: [address] [place] [address] [phone] When:02/25/[address] [facility] 12-07-2022 Hospital Discharge instructions Patient Education [...] prostate. Follow these instructions at home: Take fvvf-dqu-lmurcot and prescription medicines only as told by [...] 02/19/2001 Document Revised: 05/07/2018 Document Reviewed: 11/12/2016 [employer] Patient Education 2020 [employer]. Follow Up Care 01/28/2021 10:15:04 With:Mo LEIJA, AKILAH Smith, URO Address: When:[address] [facility] 12-01-2022 Discharge summary Author Raul Quan [facility] February 05, 2022 10:08am Note Date/Time February 05, 2022 7 :52am [facility] [address] [place] [address] Discharge Summary Signed Patient: Chico Baker MR#: [id number] : 1940 Acct:[id number] Age/Sex: 81 / M Adm Date: 2 Loc: Room: [address] [place] [address]: Raul Quan MD Copies to: [...] % (Auto) 69.5, Lymph % (Auto) 14.4, [place] % (Auto) 14.8, Eos % (Auto) 0.7, Baso % (Auto) 0.6, Nucleat RBC Rel Count 0.1, Neut # (Auto) 7.1, Lymph # (Auto) 1.5, [place] # (Auto) 1.5 H, Eos # (Auto) 0.1, Baso # (Auto) 0.1 02/04/22 08:25: Corrected WBC 9.3, Uncorrected WBC Count 9.3, RBC 4.10, Hgb 12.4L, Hct 37.5 L, MCV 91.5, MCH 30.2, MCHC 33.0, RDW 13.7, Plt Count 198, MPV 8.5, Neut % (Auto) 70.1, Lymph % (Auto) 16.4, [place] % (Auto) 12.0, Eos % (Auto) 0.9, Baso % (Auto) 0.6, Nucleat RBC Rel Count 0.0, Neut # (Auto) 6.5, Lymph # (Auto) 1.5, [place] # (Auto) 1.1 H, Eos # (Auto) [...] signed by MD Raul Quan> 02/05/[address] [facility] Work Phone: 1(291) 926-729611-15-2022 Evaluation note* Encounter Date Diagnosis Assessment Notes [...] we will evaluate him for left TCAR. [facility] Other 10-31-2022 Evaluation note* Encounter Date Diagnosis [...] complete and CT confirms candidacy for TCAR [facility] Other 09-19-2022 Evaluation note* Encounter Date Diagnosis Assessment Notes Treatment Notes Treatment Clinical Notes Nov, AAA (abdominal aortic aneurysm) without rupture (ICD-10 - I71.4) This patient is still recovering from his recent orthopedic procedures. He continues with physical therapy and although he is getting stronger, he remains quite fatigued and weak yet. He has an upcoming appointment with his spinner box for preoperative risk assessment and stratification this next week. We will give him a few more weeks of physical therapy and have him back in a month or so to reschedule his AAA. He did tell me that he had some abdominal pain [facility] and was taken to the [facility] where a CT of the abdomen was obtained. We will get these studies pushed over for review and comparison. He denies any abdominal pain today and tells me his appetite is pretty good. He knows to call us in the meantime with any issues. [facility] Other 07-26-2022 Evaluation note* Encounter Date Diagnosis [...] agrees with this plan, denies any questions. [facility] Other 07-11-2022 Evaluation note* Encounter Date Diagnosis [...] agrees with this plan, and denies questions. [facility] Other 07-11-2022 Evaluation note* Encounter Date Diagnosis [...] agrees with this plan, and denies questions. [facility] Other 05-23-2022 Evaluation note* Encounter Date Diagnosis [...] returns we will get baseline ankle-brachial indices. [facility] Other 10-06-2021 NoteHNO ID: [id number] Author: Power Catherine MD Service: ? Author Type: Physician Type: Progress Notes Filed: 12/11/2020 11:17 AM Note Text: [facility] OUTPATIENT VISIT DATE December 11, 2020 OUTPATIENT VISIT TYPE EST PRIMARY CARE PHYSICIAN: Shailesh Dunham ([facility]) [address] [place] [address] REFERRING PHYSICIAN Power Catherine [address] [facility] [address] CHIEF COMPLAINT: Patient presents with: Established Patient [...] up. Continue statin therapy. ? Power Catherine, [facility]02-11-2021 NotePatient Outreach (COVAMN) CHICO BAKER ([id number]) 1940 M Date Time Provider Department 04/18/20 KIMBERLEY REHMAN During your visit today, we recorded the following information about you: Allergies As of Date: 04/18/2020 Noted Allergy Reaction SHALINI INHIBITORS 05/09/2015 16 - Unknown GADOLINIUM-CONTAINING CONTRAST ME*05/09/2015 16 - Unknown TETANUS VACCINES AND TOXOID 05/16/2015 16 - Unknown Date Reviewed: 10/18/2017 Reviewed by: Power Catherine - Fully Assessed Order(s):SARS-COVID VACCINE 1ST DOSE APPT [[id number]] Order #: [id number] FUTURE Prescriptions as of 04/18/2020 Sig: ASPIRIN 81 MG TABLET,DELAYED * Take 81 mg by mouth once justice* ISOSORBIDE MONONITRATE ER 30 * Take 30 mg by mouth once justice* CARVEDILOL 12.5 MG TABLET Take 12.5 mg by mouth twice d* DOXAZOSIN 4 MG TABLET Take 4 mg by mouth daily at b* Problem List As Of Date: 04/18/2020 (None) Encounter Status:Closed by [employer] on 04/22/20[facility] Evaluation + Plan note Future Appointments Appointment Date:04/15/2022 08:45:00 AM Scheduled Provider:Ivelisse Hassan MD Location:[facility] Appointment Type:URO Office Visit [facility] evaluation + Plan note Future Appointments Appointment Date:04/15/2022 08:45:00 AM Scheduled Provider:Ivelisse Hassan MD Location:[facility] Appointment Type:URO Office Visit Diagnostic Tests Pending * Urine Culture [facility]11[facility]22 [facility] Future Appointments Appointment Date:02/25/2022 11:00:00 AM Scheduled Provider:ADALGISA ANTOINE PA-C Location:[facility] Appointment Type:URO Office Visit Appointment Date:04/15/2022 08:45:00 AM Scheduled Provider:Ivelisse Hassan MD Location:[facility] Appointment Type:URO Office Visit [facility] evaluation + Plan note Future Appointments Appointment Date:06/24/2022 09:30:00 AM Scheduled Provider:Ivelisse Hassan MD Location:[facility] Appointment Type:URO Office Visit [facility] evaluation + Plan note Future Appointments Appointment Date:01/13/2023 09:00:00 AM Scheduled Provider:Ivelisse Hassan MD Location:[facility] Appointment Type:URO Office Visit [facility] evaluation + Plan note Future Appointments Appointment Date:09/01/2023 11:00:00 AM Scheduled Provider:Ivelisse Hassan MD Location:[facility] Appointment Type:URO Office Visit [facility] Evaluation + Plan note Future Appointments Appointment Date:09/01/2023 11:00:00 AM Scheduled Provider:Ivelisse Hassan MD Location:[facility] Appointment Type:URO Office Visit Diagnostic Tests Pending * Calculi Analysis Urinary 05/04/23 [facility] Diagnosis Onset Date Resolution Status AAA (abdominal aortic aneurysm) acute [facility] Work Phone: Evalunmuon noteNo assessment information available [facility] Work Phone: evaluation noteNo InformationNorth [employer] Other Evaluation note* Diagnosis Onset Date Resolution Status Left carotid stenosis acute [facility] Work Phone: Evaluation note* Diagnosis Onset Date Resolution Status Hypercholesterolemia acute IFG (impaired fasting glucose) acute Kidney stones acute Nonrheumatic aortic (valve) stenosis acute Peripheral artery disease ac [place] Primary hypertension acute [facility] Work Phone: Evaluation note* Diagnosis Onset Date Resolution Status Gallbladder polyp acute Hypercholesterolemia acute IFG (impaired fasting glucose) acute Nonrheumatic aortic (valve) stenosis acute Paget's disease of bony pelvis acute Peripheral artery disease ac [place] Primary hypertension acute [facility] Work Phone: Evaluation note* Diagnosis Onset Date Resolution Status Gallbladder polyp acute Hypercholesterolemia acute IFG (impaired fasting glucose) acute Nonrheumatic aortic (valve) stenosis acute Paget's disease of bony pelvis acute Peripheral artery disease ac [place] Primary hypertension acute AAA (abdominal aortic aneurysm) without rupture acute [facility] Work Phone: Evaluation note* Diagnosis Onset Date Resolution Status Gallbladder polyp acute Hypercholesterolemia acute IFG (impaired fasting glucose) acute Nonrheumatic aortic (valve) stenosis acute Paget's disease of bony pelvis acute Peripheral artery disease ac [place] Primary hypertension acute AAA (abdominal aortic aneurysm) without rupture acute AAA (abdominal aortic aneurysm) without rupture acute Benign prostatic hyperplasia with lower urinary tract symptoms acute Gallbladder polyp acute Hypercholesterolemia acute Mass of gallbladder acute Nonrheumatic aortic (valve) stenosis acute Paget's disease of bony pelvis acute Peripheral artery disease [place] Primary hypertension acute [facility] Work Phone: Evaluation note* Diagnosis Onset Date Resolution Status Hypercholesterolemia acute IFG (impaired fasting glucose) acute Nonrheumatic aortic (valve) stenosis acute Paget's disease of bony pelvis acute Peripheral artery disease [place] Primary hypertension acute AAA (abdominal aortic aneurysm) without rupture acute AAA (abdominal aortic aneurysm) without rupture acute Benign prostatic hyperplasia with lower urinary tract symptoms acute Hypercholesterolemia acute Mass of gallbladder acute Nonrheumatic aortic (valve) stenosis acute Paget's disease of bony pelvis acute Peripheral artery disease [place] Primary hypertension acute AAA (abdominal aortic aneurysm) without rupture acute Hypercholesterolemia acute IFG (impaired fasting glucose) acute Mass of gallbladder acute Nonrheumatic aortic (valve) stenosis acute Peripheral artery disease [place] Primary hypertension acute Preop exam for internal medicine noneactive [facility] Work Phone: Evaluation note* Diagnosis Onset Date Resolution Status Hypercholesterolemia acute IFG (impaired fasting glucose) acute Nonrheumatic aortic (valve) stenosis acute Paget's disease of bony pelvis acute Peripheral artery disease [place] Primary hypertension acute AAA (abdominal aortic aneurysm) without rupture acute AAA (abdominal aortic aneurysm) without rupture acute Benign prostatic hyperplasia with lower urinary tract symptoms acute Hypercholesterolemia acute Mass of gallbladder acute Nonrheumatic aortic (valve) stenosis acute Paget's disease of bony pelvis acute Peripheral artery disease [place] Primary hypertension acute AAA (abdominal aortic aneurysm) without rupture acute Hypercholesterolemia acute IFG (impaired fasting glucose) acute Mass of gallbladder acute Nonrheumatic aortic (valve) stenosis acute Peripheral artery disease [place] Primary hypertension acute Preop exam for internal medicine noneactive AAA (abdominal aortic aneurysm) without rupture acute Benign prostatic hyperplasia with lower urinary tract symptoms acute Hypercholesterolemia acute Mass of gallbladder acute Nonrheumatic aortic (valve) stenosis acute Paget's disease of bony pelvis acute Peripheral artery disease [place] Primary hypertension acute [facility] Work Phone: Evaluation note* Diagnosis Onset Date Resolution Status AAA (abdominal aortic aneurysm) without rupture acute Benign prostatic hyperplasia with lower urinary tract symptoms acute Hypercholesterolemia acute Mass of gallbladder acute Nonrheumatic aortic (valve) stenosis acute Paget's disease of bony pelvis acute Peripheral artery disease [place] Primary hypertension acute AAA (abdominal aortic aneurysm) without rupture acute Hypercholesterolemia acute IFG (impaired fasting glucose) acute Mass of gallbladder acute Nonrheumatic aortic (valve) stenosis acute Peripheral artery disease [facility] Primary hypertension acute Preop exam for internal medicine noneactive AAA (abdominal aortic aneurysm) without rupture acute Benign prostatic hyperplasia with lower urinary tract symptoms acute Hypercholesterolemia acute Mass of gallbladder acute Nonrheumatic aortic (valve) stenosis acute Paget's disease of bony pelvis acute Peripheral artery disease [place] Primary hypertension acute Acute on chronic heart failu re with preserved ejection fraction (HFpEF) acute Atrial fibrillation acute Hypercholesterolemia acute IFG (impaired fasting glucose) acute Nonrheumatic aortic (valve) stenosis acute NSTEMI (non-ST elevated myocardial infarction) acute Primary hypertension acute [facility] Work Phone: Evaluation note* Diagnosis Onset Date Resolution Status AAA (abdominal aortic aneurysm) without rupture acute Benign prostatic hyperplasia with lower urinary tract symptoms acute Hypercholesterolemia acute Mass of gallbladder acute Nonrheumatic aortic (valve) stenosis acute Paget's disease of bony pelvis acute Peripheral artery disease [place] Primary hypertension acute AAA (abdominal aortic aneurysm) without rupture acute Hypercholesterolemia acute IFG (impaired fasting glucose) acute Mass of gallbladder acute Nonrheumatic aortic (valve) stenosis acute Peripheral artery disease [place] Primary hypertension acute Preop exam for internal medicine noneactive AAA (abdominal aortic aneurysm) without rupture acute Benign prostatic hyperplasia with lower urinary tract symptoms acute Hypercholesterolemia acute Mass of gallbladder acute Nonrheumatic aortic (valve) stenosis acute Paget's disease of bony pelvis acute Peripheral artery disease [place] Primary hypertension acute Acute on chronic heart failu re with preserved ejection fraction (HFpEF) acute Atrial fibrillation acute Hypercholesterolemia acute IFG (impaired fasting glucose) acute Nonrheumatic aortic (valve) stenosis acute NSTEMI (non-ST elevated myocardial infarction) acute Primary hypertension acute AAA (abdominal aortic aneurysm) without rupture acute Carotid stenosis, bilateral acute Former smoker acute [facility] Work Phone: Evaluation note* Diagnosis Onset Date Resolution Status AAA (abdominal aortic aneurysm) without rupture acute Hypercholesterolemia acute IFG (impaired fasting glucose) acute Mass of gallbladder acute Nonrheumatic aortic (valve) stenosis acute Peripheral artery disease [facility] Primary hypertension acute Preop exam for internal medicine noneactive AAA (abdominal aortic aneurysm) without rupture acute Benign prostatic hyperplasia with lower urinary tract symptoms acute Hypercholesterolemia acute Mass of gallbladder acute Nonrheumatic aortic (valve) stenosis acute Paget's disease of bony pelvis acute Peripheral artery disease [facility] Primary hypertension acute Acute on [...] elevated myocardial infarction) acute Primary hypertension acute [facility] Work Phone: Evaluation note* Diagnosis [...] aortic (valve) stenosis acute Primary hypertension acute [facility] Work Phone: Evaluation note* Diagnosis [...] (nonsustained ventricular tachycardia) acute Primary hypertension acute [facility] Work Phone: Evaluation note* Diagnosis [...] AAA (abdominal aortic aneurysm) without rupture acute [facility] Work Phone: Evaluation note* Diagnosis Onset [...] Primary hypertension acute July 12, 2024 3:00pm [facility] Work Phone: History general Narrative - Reported* Type Description Date Medical History hypercholesterolemia Medical History abdominal aortic aneurysm Medical History Carotid stenosis Medical History PAD Surgical History TURP Surgical History knee arthroscopy LEFT Surgical History Vein stripping Hospitalization History See Above [facility] Other [facility] Narrative - Reported* Type Description Date Medical History hypercholesterolemia Medical History abdominal aortic aneurysm Medical History Carotid stenosis Medical History PAD Surgical History TURP Surgical History knee arthroscopy LEFT Surgical History Vein stripping Surgical History RT FEMUR FX WITH ARABELLA PLACEMENT Hospitalization History See Above [facility] Other [facility] general Narrative - Reported* Type Description Date Medical History hypercholesterolemia Medical History abdominal aortic aneurysm Medical History Carotid stenosis Medical History PAD Medical History [ ] Surgical History TURP Surgical History knee arthroscopy LEFT Surgical History Vein stripping Surgical History RT FEMUR FX WITH ARABELLA PLACEMENT Surgical History EVAR 02/04/2022 Surgical History [ ] Hospitalization History See Above [facility] Other [facility] general Narrative - Reported* Type Description Date [...] History COLONOSCOPY 2019 Hospitalization History See Above [facility] Other Hisvnns general Narrative - Reported* Type Description Date [...] Left TCAR 07/2022 Hospitalization History See Above [facility] Other [facility] general Narrative - Reported* Type Description Date [...] Left TCAR 07/2022 Hospitalization History See Above [facility] Other History general Narrative - Reported* Type [...] left ESWL 03/2023 Hospitalization History See Above [facility] Other Hospital course Narrative No data available for this section [facility] Hospital Discharge instructions No data available for this section [facility] Author Raul Quan [facility] October 15, 2021 4:31pm Note Date/Time October 15, 2021 4: 31pm [facility] [address] [place] [address] Vascular Surgery Progress Note Signed Patient: Chico Baker MR#: [id number] : 1940 Acct:[id number] Age/Sex: 81 / M Adm Date: 2 Loc: 4N Room: 6D9438-6 Type: DIS IN Attending Dr: Raul Quan [...] proceed with evaluation here. I will contact [facility] to performoutpatient cardiac evaluation and then he will be rescheduled when he is cleared. Code(s): I71.4 - Abdominal aortic aneurysm, without rupture Status: Acute Documented By: Raul Quan MD 10/15/21 162 9 Signed By: <Electronically signed by MD Raul Quan> 10/15/21 1631 [facility] Work Phone: Progress note Author Pb Zurita [facility] October 16, 2021 5:41am Note Date/Time October 16, 2021 5: 41am [facility] [address] [place] [address] Anesthesia Progress Note Signed Patient: Chico Baker MR#: [id number] : 1940 Acct:[id number] Age/Sex: 81 / M Adm Date: 2 Loc: 4N Room: 5H1934-9 Type: DIS IN Attending Dr: Raul Quan MD Copies to: ~ Anesthesia Progress Note Narrative Narrative: Patient for EVAR today for 5+ centimeter infrarenal AAA. Past medical history hypertension, moderate aortic stenosis, and coronary artery disease. Review of medical records and discussion with indicates patient had stress test 2009 positive for infarct and ischemia at which time he was referred to [facility] and had cardiac cath. Medical management was apparently chosen. No interval events,testing, or intervention. Patient has been asymptomatic but sedentary and poor historian. Advised patient and family to see spinner box for consideration of preop stress testing. Discussed with surgeon Documented By: Pb Zurita MD 10/16/2135 Signed By: <Electronically signed by Pb Zurita MD> 10/16/[address] [facility] Work Phone: Progress note No data available for this section [facility] reason for referral (narrative)No reason for referral [facility]: Reason for Referral No [...] Documentation i71.4 BP check S/P EVAR; CTA [facility] Reason for Visit Gallbladder polyp [...] Complaint i71.4 BP check S/P EVAR; CTA [facility] Nonrheumatic aortic stenosis sugical clearance, [...] Complaint i71.4 BP check S/P EVAR; CTA [facility] Nonrheumatic aortic stenosis sugical clearance, [...] Complaint i71.4 BP check S/P EVAR; CTA [facility] Nonrheumatic aortic stenosis sugical clearance, [...] Amb Documentation July 03, 2024 11: 37am [facility] f/u cath-HIGH RISK July 12, 2024 3: [...] Amb Documentation July 03, 2024 11: 37am [facility] f/u cath-HIGH RISK July 12, 2024 3: 00pm Amb Documentation August 07, 2024 10:09 am [facility]; TAVR August 14, 2024 11:39 am Reason [...] Amb Documentation July 03, 2024 11: 37am [facility] f/u cath-HIGH RISK July 12, 2024 3: 00pm Amb Documentation August 07, 2024 10:09 am [facility]; TAVR August 14, 2024 11:39 am Amb Documentation September 05, 2024 10:47 am [facility] follow up September 13, 2024 11:37 am [...] section and content) DATE CREATED AUTHOR 04/02/2021 [facility] DATE CREATED AUTHOR AUTHOR'S ORGANIZ ATION 10/28/2021 [facility] DATE CREATED AUTHOR AUTHOR'S ORGANIZ ATION 04/14/[address] [facility] DATE CREATED AUTHOR AUTHOR'S ORGANIZ ATION 05/13/2023 [facility] DATE CREATED AUTHOR AUTHOR'S ORGANIZ ATION 07/29/2023 [facility] EPIC DATE CREATED AUTHOR AUTHOR'S ORGANIZ ATION 01/12/2024 [facility] DATE CREATED AUTHOR AUTHOR'S ORGANIZ ATION 10/24/2024 [facility] REASON FOR VISIT (unrecogniz ed section and content) REF BY DR DUNHAM FOR AAA, PAD AND CAROTID STENOSIS, Needs a new vascular surgeon7 [facility]K FOLLOW UP; [facility]NE'[facility], ABDOMINAL, CAROTID [facility] FOLLOW UP; [facility], ABDOMINAL, CAROTID 08/27/21FOLLOW UP AFTER CTA [facility] 09/18/21-AAAAAA see pt post femur fx [...] Member Role Status Dates Sheri Christiansen MD [employer] Active Shailesh Dunham DO Primary Care Provider [...] End: August 14, 2024 Maureen Velasquez CMA Solderer Assembler Active St art: August 14, 2024 End: [...] End: August 14, 2024 Maureen Velasquez CMA Solderer Assembler Active St art: August 14, 2024 End: [...] BE BASED ON THE PRIMARY CLINICAL RECORDS. [facility] [employer] provides no warranty or guarantee of the accuracy or completeness of information in this document.
[2024-10-25] MEDS: ERTAPENEM SODIUM 1 GM in 0.9 % SODIUM CHLORIDE 50 ML IV (20:54)
[2024-10-25] MEDS: APIXABAN 5 MG TABLET 2.5 MG PO (20:56)
[2024-10-25] MEDS: LOSARTAN POTASSIUM 50 MG TABLET 25 MG PO (20:56)
[2024-10-25] MEDS: ATORVASTATIN CALCIUM 10 MG TABLET PO (20:57)
[2024-10-25] MEDS: ISOSORBIDE DINITRATE 20 MG TABLET PO (20:57)
[2024-10-25] MEDS: HYDRALAZINE HCL 10 MG TABLET 25 MG PO (21:04)
[2024-10-26] VITALS (7 sets, daily range): BP systolic 99–130; BP diastolic 57–67; PULSE 64–72; TEMP 36.6–36.7; O2SAT 92–96
[2024-10-26 05:32] LABS: Hematocrit 33.9 % (42.0-54.0); Hemoglobin 11.2 g/dL (14.0-18.0); Immature Granulocytes Abs Auto 0.03 10^3/uL (0.00-0.03); Immature Granulocytes Pct Auto 0.2 % (0.0-0.5); Lymphocytes Absolute Auto 1.1 10^3/uL (1.2-3.8); Mean Corpuscular HGB Conc 33.0 g/dL (29.9-35.2); Mean Corpuscular Hemoglobin 30.5 pg (25.9-34.0); Mean Corpuscular Volume 92.4 fL (80.0-94.0); Platelet Count 170 10^3/uL (150-450); Red Blood Count 3.67 10^6/uL (4.70-6.10); White Blood Count 13.3 10^3/uL (4.0-11.0)
[2024-10-26 05:50] LABS: Lactate/Lactic Acid 0.8 mmol/L (0.4-2.0)
[2024-10-26 05:54] LABS: Alanine Aminotransferase 12 U/L (16-63); Albumin Globulin Ratio 0.8; Albumin Level 3.0 g/dL (3.4-5.0); Alkaline Phosphatase 88 U/L (46-116); Anion Gap 11.8; Aspartate Amino Transferase 13 U/L (15-37); Blood Urea Nitrogen 16.0 mg/dL (7.0-18.0); Calcium 8.8 mg/dL (8.5-10.1); Carbon Dioxide 27.0 mmol/L (21.0-32.0); Chloride 103 mmol/L (98-107); Estimated GFR (African America >60 (>=60 mL/min/1.73m^2); Estimated GFR (Non-African Ame >60 (>=60 mL/min/1.73m^2); Globulin 3.8 g/dL; Glucose 100 mg/dL (74-106); Magnesium 1.9 mg/dL (1.8-2.4); Potassium 4.8 mmol/L (3.5-5.1); Sodium 137 mmol/L (136-145); Total Protein 6.8 g/dL (6.4-8.2)
[2024-10-26] MEDS: HYDRALAZINE HCL 10 MG TABLET 25 MG PO (05:54)
--- NOTE | 2024-10-26 08:00 | CM.NOTE ---
Rounds made with Dr. Ruby, clarified status (pt will be inpatient status). PT and OT will evaluate pt for discharge planning.
[2024-10-26] MEDS: APIXABAN 5 MG TABLET 2.5 MG PO (09:34)
[2024-10-26] MEDS: METOPROLOL SUCCINATE 50 MG TAB.ER.24H PO (09:34)
[2024-10-26] MEDS: CLOPIDOGREL BISULFATE 75 MG TABLET PO (09:34)
--- NOTE | 2024-10-26 10:51 | PM.HP ---
HPI H&P: HPI History of Present Illness Chief complaint: ABDOMINAL PAIN, HTN EMERGENCY ELEVATED TROPON IN Narrative: Mr. Polanco is an 84-year-old gentleman who came in yesterday complaining of abdominal pain after his inguinal hernia would not reduce back to place. Patient was found to have hypertensive urgency. His hernia was reduced and his blood pressure stabilized Patient was noted to have nonspecific EKG. Troponin had risen from 13-59. Patient denies any chest pain. The decision was made to observe him. No fever or chills. Chronic cough according to the patient and his . Generalized weakness and fatigue Opioid HPI Opioid Management Most Recent Pain and Opioid Data: Last Pain Scale 0 Today, 08:30 Last Pain Assessment 10/25/24, 21:06 Last ED Pain Assessment 10/25/24, 17:57 Last MAR Pain Assessment 10/25/24, 14:05 Last ORT Total Score 1 10/25/24, 20:01 Last ORT Risk Category Low Risk 10/25/24, 20:01 Review of Systems ROS Status of ROS 10 or more systems reviewed and unremarkable except as noted in history and below PFSH [facility] Medical History (Updated 10/26/24 @ 10:55 by Kendall Ruby MD) Hyponatremia ?E87.1 - Hypo-osmolality and hyponatremia (ICD-10) Acute on chronic diastolic (congestive) heart failure ?I50.33 - Acute on chronic diastolic (congestive) heart failure (ICD-10) NSTEMI (non-ST elevated myocardial infarction) ?I21.4 - Non-ST elevation (NSTEMI) myocardial infarction (ICD-10) Atrial fibrillation with RVR ?I48.91 - Unspecified atrial fibrillation (ICD-10) Clavicular fracture ?S42.009A - Fracture of unspecified part of unspecified clavicle, initial encounter for closed fracture (ICD-10) Presence of internal carotid stent (~07/2022) ?Z95.828 - Presence of other vascular implants and grafts (ICD-10) Aortic valve stenosis ?I35.0 - Nonrheumatic aortic (valve) stenosis (ICD-10) Heart murmur ?R01.1 - Cardiac murmur, unspecified (ICD-10) Carotid stenosis ?I65.29 - Occlusion and stenosis of unspecified carotid artery (ICD-10) Anemia ?D64.9 - Anemia, unspecified (ICD-10) Femur fracture (~10/2021) ?S72.90XA - Unspecified fracture of unspecified femur, initial encounter for closed fracture (ICD-10) AAA (abdominal aortic aneurysm) ?I71.40 - Abdominal aortic aneurysm, without rupture, unspecified (ICD-10) Heartburn ?R12 - Heartburn (ICD-10) Delayed recovery from anesthesia Urethral stricture ?N35.919 - Unspecified urethral stricture, male, unspecified site (ICD-10) Post-void dribbling ?N39.43 - Post-void dribbling (ICD-10) Penile rash ?R21 - Rash and other nonspecific skin eruption (ICD-10) Paget's disease Nocturia ?R35.1 - Nocturia (ICD-10) Incontinence ?R32 - Unspecified urinary incontinence (ICD-10) Microhematuria ?R31.29 - Other microscopic hematuria (ICD-10) Impotence ?N52.9 - Male erectile dysfunction, unspecified (ICD-10) Hypertension ?I10 - Essential (primary) hypertension (ICD-10) Hyperlipidemia ?E78.5 - Hyperlipidemia, unspecified (ICD-10) Kidney stones ?N20.0 - Calculus of kidney (ICD-10) Gross hematuria ?R31.0 - Gross hematuria (ICD-10) Erectile dysfunction ?N52.9 - Male erectile dysfunction, unspecified (ICD-10) Dysuria ?R30.0 - Dysuria (ICD-10) BPH (benign prostatic hyperplasia) ?N40.0 - Benign prostatic hyperplasia without lower urinary tract symptoms (ICD-10) Asymptomatic microscopic hematuria ?R31.21 - Asymptomatic microscopic hematuria (ICD-10) ASHD (arteriosclerotic heart disease) ?I25.10 - Atherosclerotic heart disease of [place] coronary artery without angina pectoris (ICD-10) Surgical History H/O lithotripsy ?Z98.890 - Other specified postprocedural states (ICD-10) History of open reduction and internal fixation (ORIF) procedure (~10/2021) ?Z98.890 - Other specified postprocedural states (ICD-10) Hx of esophagogastroduodenoscopy ?Z98.890 - Other specified postprocedural states (ICD-10) H/O cardiac catheterization ?Z98.890 - Other specified postprocedural states (ICD-10) H/O arthroscopy of knee ?Z98.890 - Other specified postprocedural states (ICD-10) H/O colonoscopy ?Z98.890 - Other specified postprocedural states (ICD-10) H/O cystoscopy ?Z98.890 - Other specified postprocedural states (ICD-10) H/O transurethral resection of prostate ?Z98.890 - Other specified postprocedural states (ICD-10) ?Z90.79 - Acquired absence of other genital organ(s) (ICD-10) S/P AAA repair (~02/2022) ?Z98.890 - Other specified postprocedural states (ICD-10) ?Z86.79 - Personal history of other diseases of the circulatory system (ICD-10) S/P cystourethroscopy with dilation of urethral stricture ?Z98.890 - Other specified postprocedural states (ICD-10) Social History (Updated 10/25/24 @ 22:13 by Cierra Amos RN) Within the past year, how often did you have a drink containing alcohol: 2-3 times a week Smoking status: Former smoker Second hand tobacco smoke exposure: No Non-prescribed substance use: denies use Previous occupational history: retired Known occupational exposures/hazards: No Highest level of school completed/degree received: high school graduate Are you now , , , , never or living with a partner: In a typical week, how many times do you talk on the telephone with family, friends, or neighbors: twice per week How often do you get together with friends or relatives: twice per week Little interest or pleasure in doing things: not at all Feeling down, depressed, or hopeless: not at all Feel stressed/tense/nervous/anxious/difficulty sleeping: not at all Do you think of yourself as: straight/heterosexual Gender Identity: male Meds Home Medications and Allergies Home Medications ?Medication ?Instructions ?Recorded ?Confirmed ?Type pravastatin 40 mg tablet 40 mg PO QPM 03/12/23 10/25/24 History apixaban 2.5 mg tablet (Eliquis) 2.5 mg PO BID #60 tabs 10/17/23 10/25/24 Rx clopidogrel 75 mg tablet 75 mg PO DAILY 09/01/24 10/25/24 History ferrous sulfate 325 mg (65 mg 325 mg PO DAILY 09/01/24 10/25/24 History iron) tablet folic acid 1 mg tablet 1 mg PO DAILY 09/01/24 10/25/24 History hydralazine 10 mg tablet 20 mg PO TID 10/25/24 10/25/24 History isosorbide dinitrate 20 mg tablet 20 mg PO TID 10/25/24 10/25/24 History losartan 25 mg tablet 25 mg PO BEDTIME 10/25/24 10/25/24 History metoprolol succinate 50 mg 50 mg PO DAILY 10/25/24 10/25/24 History tablet,extended release 24 hr Allergies Allergy/AdvReac Type Severity Reaction Status Date / Time SHALINI Inhibitors Allergy Unknown Unknown Verified 10/25/24 13:45 Iodinated Contrast Media Allergy Unknown Hives Verified 10/25/24 13:45 iodine Allergy Unknown Hives Verified 10/25/24 13:45 tetanus toxoid, adsorbed Allergy Unknown Unknown Verified 10/25/24 13:45 Exam Narrative Exam Narrative: Patient is sitting in the chair. Cachectic and frail in appearance. Bitemporal muscle wasting. Upper and lower extremities muscle wasting and atrophy. Chest exam is clear, heart is regular. Abdomen is soft. Mild epigastric tenderness. The hernia is reduced. No tenderness there. No strangulation. No edema in lower extremities Constitutional Vital Signs, click to edit/add: Last Vital Signs Temp 98.0 F 10/26/24 08:30 Pulse 69 10/26/24 10:00 Resp 16 10/26/24 08:30 BP 114/60 10/26/24 08:30 Pulse Ox 96 10/26/24 08:30 O2 Del Method Room Air 10/26/24 08:30 O2 Flow Rate 2 10/25/24 14:36 Results Labs Labs: Short CBC 10/25/24 10/26/24 Range/Units 13:54 04:52 WBC 15.6 H 13.3 H (4.0-11.0) 10^3/uL Hgb 12.0 L 11.2 L (14.0-18.0) g/dL Hct 35.8 L 33.9 L (42.0-54.0) % Plt Count 256 170 (150-450) 10^3/uL BMP 10/25/24 10/26/24 13:54 04:52 Sodium 140 137 Potassium 4.3 4.8 Chloride 102 103 Carbon Dioxide 25.3 27.0 BUN 20.0 H 16.0 Creatinine 1.06 1.01 Glucose 161 H 100 Calcium 9.1 8.8 Liver Function 10/25/24 10/26/24 Range/Units 13:54 04:52 Total Bilirubin 0.4 0.5 (0.2-1.0) mg/dL AST 18 13 L (15-37) U/L ALT 20 12 L (16-63) U/L Alkaline Phosphatase 105 88 (46-116) U/L Albumin 3.7 3.0 L (3.4-5.0) g/dL Urine 10/25/24 Range/Units 17:44 Urine Color Lt. yellow (YELLOW) Urine Clarity Clear (CLEAR) Urine pH 6.5 (5.0-9.0) Ur Specific [place] 1.015 (1.005-1.025) Urine Protein Trace (NEG/TRACE) mg/dL Urine Glucose (UA) Negative (NEGATIVE) mg/dL Assessment and Plan Assessment and Plan (1) Abdominal pain: (2) Inguinal hernia: (3) Hypertensive urgency: (4) Cachexia: (5) Frailty: (6) Muscle atrophy: (7) Atrial fibrillation: (8) Hematuria: (9) Abnormal CT of the abdomen: (10) Aneurysm: Plan Hypertensive urgency Resolved after his abdominal pain had resolved and his inguinal hernia was reduced. Resume preadmission home medications Inguinal hernia, chronic with daily herniation Patient states that every time he stands up his hernia will herniate and he would have to put it back in place Yesterday could not put it back in place therefore he came to the emergency room. His hernia was reduced in the emergency room department According to patient and his , he was told by surgeon that he does not need any surgical repair I told patient and his that at some point that the hernia will be strangulated and he would need urgent surgery We will refer him back to CT surgery and consideration for elective hernia repair Paroxysmal A-fib Currently patient is in sinus rhythm. EKG is nonspecific. Recent stress test showed fixed defect, no ischemia. Normal ejection fraction. December 2023 Patient is on anticoagulation and antiplatelets No active chest pain Troponin elevation up to 59 but down to 31. 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 Microscopic hematuria. Unknown etiology. Could be related to mild cystitis in the setting of patient taking antiplatelets and anticoagulation.. I could not exclude underlying urological malignancy. I recommend patient to have a repeat UA in 2 weeks at the PCP office and if he continues to have microscopic hematuria I would recommend referral to see urology. He may need to have additional urological investigation to exclude underlying urological malignancy. This may include but not limited to cystoscopy, IVP and others Abnormal CT showing constipation and circumferential thickening of the sigmoid colon. Patient does not have tenderness there. Could be localized colitis I would start patient on antibiotic for 5 to 7 days I would recommend patient to have colonoscopy to rule out underlying malignancy. We will arrange. Abdominal aortic iliac stenting with thrombosis Pt is on Eliquis No clinical evidence of distal embolization Cachexia, frailty, muscle wasting and atrophy, moderate protein calorie malnutrition Recommend patient to take Ensure. May need additional investigation for weight loss and cachexia to rule out underlying malignancy This would need to be addressed in the outpatient setting by PCP in collaboration with other needed outpatient providers Anemia, no evidence of acute blood loss. Patient will likely require to have anemia workup to be done in the outpatient setting to be handled by PCP in collaboration with other needed outpatient providers. This may include but not limited to EGD, colonoscopy, referral to see hematology and other needed age-appropriate cancer screening. Chronic medical conditions not listed above, incidental findings seen on labs and imaging. These would need to be addressed. Could be addressed when time and condition are appropriate. Could be addressed in the outpatient setting by PCP collaboration with other needed outpatient providers.
--- NOTE | 2024-10-26 11:03 | PM.EN ---
Event Note Event Note: His came and requested an update questioning why we need to keep patient here in the hospital for another day or 2. I went back to speak with the . I had 25 minutes a conversation with the patient and his . The patient is feeling great. I gave both of them update on his condition, status and treatment plan. Patient wants to go home. He does not want to stay any longer. He and his understood the benefit and risk of staying for at least another day to monitor his condition versus going home today. Patient is insistent on going home today stating that he feels great and they can follow-up with his doctors in the outpatient setting. At this time, I do not have legal justification to keep patient in the hospital against as well. I will honor his wishes and release him home. Patient will need to follow-up with PCP, surgery, cardiology, vascular and urology if repeat UA continues to show microscopic hematuria He would also need to follow-up with GI for colonoscopy given the abnormality seen on CT. I informed the patient and his about the need for comprehensive outpatient follow-up, investigation and treatment as listed above.
[2024-10-26 11:07] LABS: Lipase 18.0 U/L (16.0-77.0)
--- NOTE | 2024-10-26 11:07 | PM.DS1 ---
DS: Providers Provider Date of admission: 10/25/24 19:46 Primary care physician: Shailesh Vinson DO Consults: 10/26/24 Occupational Therapy Eval and Treat Routine Reason for consultation: weakness Physical Therapy Eval and Treat Routine Reason for consultation: weakness DS: Diagnosis Discharge Diagnosis (1) Abdominal pain: (2) Inguinal hernia: (3) Hypertensive urgency: (4) Cachexia: (5) Frailty: (6) Muscle atrophy: (7) Atrial fibrillation: (8) Hematuria: (9) Abnormal CT of the abdomen: (10) Aneurysm: Plan As listed above and others that are not listed DS: Summary Hospital Course Hospital Course: Mr. Polanco is an 89-year-old gentleman who came in with abdominal pain and was found to have the following: Hypertensive urgency Resolved after his abdominal pain had resolved and his inguinal hernia was reduced. Resume preadmission home medications Inguinal hernia, chronic with daily herniation Patient states that every time he stands up his hernia will herniate and he would have to put it back in place Yesterday could not put it back in place therefore he came to the emergency room. His hernia was reduced in the emergency room department According to patient and his , he was told by surgeon that he does not need any surgical repair I told patient and his that at some point that the hernia will be strangulated and he would need urgent surgery We will refer him back to CT surgery and consideration for elective hernia repair Paroxysmal A-fib Currently patient is in sinus rhythm. EKG is nonspecific. Recent stress test showed fixed defect, no ischemia. Normal ejection fraction. December 2023 Patient is on anticoagulation and antiplatelets No active chest pain Troponin elevation up to 59 but down to 31. 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 Microscopic hematuria. Unknown etiology. Could be related to mild cystitis in the setting of patient taking antiplatelets and anticoagulation.. I could not exclude underlying urological malignancy. I recommend patient to have a repeat UA in 2 weeks at the PCP office and if he continues to have microscopic hematuria I would recommend referral to see urology. He may need to have additional urological investigation to exclude underlying urological malignancy. This may include but not limited to cystoscopy, IVP and others Abnormal CT showing constipation and circumferential thickening of the sigmoid colon. Patient does not have tenderness there. Could be localized colitis I would start patient on antibiotic for 5 to 7 days I would recommend patient to have colonoscopy to rule out underlying malignancy. We will arrange. Abdominal aortic iliac stenting with thrombosis Pt is on Eliquis No clinical evidence of distal embolization Cachexia, frailty, muscle wasting and atrophy, moderate protein calorie malnutrition Recommend patient to take Ensure. May need additional investigation for weight loss and cachexia to rule out underlying malignancy This would need to be addressed in the outpatient setting by PCP in collaboration with other needed outpatient providers Anemia, no evidence of acute blood loss. Patient will likely require to have anemia workup to be done in the outpatient setting to be handled by PCP in collaboration with other needed outpatient providers. This may include but not limited to EGD, colonoscopy, referral to see hematology and other needed age-appropriate cancer screening. Chronic medical conditions not listed above, incidental findings seen on labs and imaging. These would need to be addressed. Could be addressed when time and condition are appropriate. Could be addressed in the outpatient setting by PCP collaboration with other needed outpatient providers. Patient has multiple complex medical issues as listed above and others that are not listed. All appear to be stable however I recommend patient to stay for at least another 24 hours to monitor his condition further and proceed with additional needed inpatient diagnostic and therapeutic intervention. Patient is feeling great and requesting to be discharged home despite my repeated effort to convince him otherwise. At this time, I do not have legal justification to keep him in the hospital against his will and desire to be discharged home. Patient however will require close and frequent monitoring as well as additional work-up, investigation and therapeutic intervention that could take place from this point on post discharge. That is to prevent relapse, decompensation, rehospitalization and other medical implications. I instructed patient to ask her primary care doctor to obtain [facility] record entirely to address abnormalities seen on labs and imaging that I have and have not addressed during this hospitalization, follow-up on pending blood work, imaging and pathology is if available and to follow-up on needed medical care in the outpatient setting. Time Spent with Patient Time attestation: Total time spent providing and/or coordinating discharge services: Time spent: greater than 30 minutes Exam Constitutional Vital Signs, click to edit/add: Last Vital Signs Temp 98.0 F 10/26/24 08:30 Pulse 69 10/26/24 10:00 Resp 16 10/26/24 08:30 BP 114/60 08/21/25 08:30 Pulse Ox 96 10/26/24 08:30 O2 Del Method Room Air 10/26/24 08:30 O2 Flow Rate 2 10/25/24 14:36 DS: Data Data Completed and Pending Labs on day of discharge: Labs from last 24 hours 10/26/24 10/25/24 10/25/24 04:52 17:44 16:45 WBC 13.3 H RBC 3.67 L Hgb 11.2 L Hct 33.9 L MCV 92.4 MCH 30.5 MCHC 33.0 RDW 13.4 Plt Count 170 MPV 9.9 Neut % (Auto) 80.1 H Lymph % (Auto) 8.4 L Pratt % (Auto) 10.5 Eos % (Auto) 0.5 L Baso % (Auto) 0.3 Neut # (Auto) 10.6 H Lymph # (Auto) 1.1 L Pratt # (Auto) 1.4 H Eos # (Auto) 0.1 Baso # (Auto) 0.0 Abs Immat Gran (auto) 0.03 Imm/Tot Granulo (auto) 0.2 PT INR Sodium 137 Potassium 4.8 Chloride 103 Carbon Dioxide 27.0 Anion Gap 11.8 BUN 16.0 Creatinine 1.01 Est GFR ( Amer) >60 Est GFR (Non-Af Amer) >60 BUN/Creatinine Ratio 15.8 Glucose 100 Lactate 0.8 0.7 Calcium 8.8 Magnesium 1.9 Total Bilirubin 0.5 AST 13 L ALT 12 L Alkaline Phosphatase 88 Troponin I High Sens 31.8 59.0 Total Protein 6.8 Albumin 3.0 L Globulin 3.8 Albumin/Globulin Ratio 0.8 Urine Color Lt. yellow Urine Clarity Clear Urine pH 6.5 Ur Specific [place] 1.015 Urine Protein Trace Urine Glucose (UA) Negative Urine Ketones Trace A Urine Occult Blood Large A Urine Nitrite Negative Urine Bilirubin Negative Urine Urobilinogen 0.2 Ur Leukocyte Esterase Trace A Urine RBC 20-50 A Urine WBC 2-5 A Ur Squamous Epith Cells Few A Urine Crystals None seen Urine Bacteria Trace A Urine Casts None seen Urine Mucus None seen Ur Culture Indicated? No 10/25/24 13:54 WBC 15.6 H RBC 3.90 L Hgb 12.0 L Hct 35.8 L MCV 91.8 MCH 30.8 MCHC 33.5 RDW 13.4 Plt Count 256 MPV 9.9 Neut % (Auto) 79.3 H Lymph % (Auto) 11.8 L Pratt % (Auto) 7.6 Eos % (Auto) 0.4 L Baso % (Auto) 0.4 Neut # (Auto) 12.4 H Lymph # (Auto) 1.8 Pratt # (Auto) 1.2 H Eos # (Auto) 0.1 Baso # (Auto) 0.1 Abs Immat Gran (auto) 0.08 H Imm/Tot Granulo (auto) 0.5 PT 11.4 INR 1.08 Sodium 140 Potassium 4.3 Chloride 102 Carbon Dioxide 25.3 Anion Gap 17.0 BUN 20.0 H Creatinine 1.06 Est GFR ( Amer) >60 Est GFR (Non-Af Amer) >60 BUN/Creatinine Ratio 18.9 Glucose 161 H Lactate 2.6 H* Calcium 9.1 Magnesium Total Bilirubin 0.4 AST 18 ALT 20 Alkaline Phosphatase 105 Troponin I High Sens 13.7 Total Protein 8.1 Albumin 3.7 Globulin 4.4 Albumin/Globulin Ratio 0.8 Urine Color Urine Clarity Urine pH Ur Specific [place] Urine Protein Urine Glucose (UA) Urine Ketones Urine Occult Blood Urine Nitrite Urine Bilirubin Urine Urobilinogen Ur Leukocyte Esterase Urine RBC Urine WBC Ur Squamous Epith Cells Urine Crystals Urine Bacteria Urine Casts Urine Mucus Ur Culture Indicated? Discharge Plan Discharge Disposition: Home Health Service Discharge Medications: New sennosides-docusate sodium [Senna Plus] 8.6-50 mg Tablet 1 tab PO QD Qty: 30 0RF amoxicillin-pot clavulanate 875-125 mg tablet 1 tab PO BID Qty: 10 0RF pantoprazole [Protonix] 20 mg tablet,delayed release (DR/EC) 20 mg PO DAILY Qty: 30 2RF Continued pravastatin 40 mg tablet 40 mg PO QPM clopidogrel 75 mg tablet 75 mg PO DAILY ferrous sulfate 325 mg (65 mg iron) tablet 325 mg PO DAILY folic acid 1 mg tablet 1 mg PO DAILY Eliquis 2.5 mg tablet 2.5 mg PO BID Qty: 60 11RF hydralazine 10 mg tablet 20 mg PO TID metoprolol succinate 50 mg tablet extended release 24 hr 50 mg PO DAILY losartan 25 mg tablet 25 mg PO BEDTIME isosorbide dinitrate 20 mg tablet 20 mg PO TID Print Language: [place] Activity Restrictions/Additional Instructions: I may not have addressed or treated all of your medical illnesses or the abnormal blood work or imaging studies during this hospitalization. Please ask your primary care provider to obtain [facility] records entirely to follow up on all of the abnormal physical, laboratory, and imaging findings that I have not addressed. Please return back to the emergency room or seek medical attention if your symptoms worsen or return. You have some blood in the urine which could be related to having kidney stone as seen on CAT scan while you are taking a blood thinner. I would recommend that your primary care doctor repeat urine test UA in 2 to 3 weeks. If UA continues to show microscopic blood in the urine I would recommend referral to see urologist (kidney and bladder specialist ) to be arranged by your primary care doctor. I would recommend that you drink Ensure 1 can twice a day. I would recommend further investigation for you your weight loss to be arranged by your primary care doctor. I would recommend that you follow-up with surgery regarding hernia repair before the hernia strangulate (choke off ) I would recommend that you have colonoscopy within the next 4 to 6 weeks to make sure that there is no cancer in your colon. I would recommend you to follow-up with your heart doctor as well. Discharging you from [facility] does not mean that your medical care ends here and now. You may still need additional monitoring, work up, investigation, and treatment plan to be handled from this point on by out patient providers including your primary care provider and specialists. For any medication question, please contact your retail pharmacist or your primary care provider. Thank you. Forms: Portal Instructions Follow Up Appointments: 11/01 @ 2:30pm with Dr. Vinson [phone] 11/10 @ 1:20pm with [facility] [phone]
--- NOTE | 2024-10-26 12:06 | CM.NOTE ---
Discussed with pt and PT and OT recommendations for outpatient PT. Both are in agreement, order provided. Pt is also active in cardiac rehab and plans on returning after hernia repair. Pt will have f/u appointment scheduled with PCP, [facility] cardiology, GI specialist, and surgeon. Pt and both verbalize understanding. Clarified for Dr. Ruby pt's home amiodarone with pharmacy, pt is not currently taking as a home medication. Updated Dr. Ruby that medication had been discontinued. Important Message From Medicare discussed with pt, pt verbalizes understanding and signs paper. Original given to pt and copy placed in pt's chart.
--- NOTE | 2024-10-31 14:35 | CM.DCFOLLOWU ---
Person spoke with:patient and were both on phone How are you feeling? alright How is your pain? no pain at this time Did you understand your discharge instructions? yes Do you have any questions about your discharge instructions? no Were you given any prescriptions at discharge?yes Were you able to get your prescriptions filled?yes Do you understand how to take your medications as ordered?yes Do you have any questions about your follow up appointment and do you plan to keep your follow up appointment? Did review all follow ups. MARIELA called over to [facility] doctor since pt and had not received call from them. The litigation legal secretary at the [facility]astro office voiced she just called over to [facility] and spoke to Susy and she was going to fax over the requested records. MARIELA called Susy on med/surge and she did speak with them and did fax over clinical. MARIELA called back pt and and advised he will be seeing Dr. Singleton and they will be reaching out to schedule appointment. Is there anything else that you would like to discuss? no Questions/Comments/Concerns/Other:none
--- NOTE | 2024-11-01 11:55 | CM.NOTE ---
[facility] called and are unable to accept pt as a referral d/t possible malignancy. [facility] referral recommending [facility] or [facility] for GI referral. Called Dr. Vinson's office for update, pt has appointment with Dr. Vinson this afternoon. Dr. Vinson's office will take care of referral for GI.
== END 2024-10-26 13:52 | disposition home or self-care (01) ==
LOC: ER 18:22 → MS 20:03
PROVIDERS: Emergency Medicine; Admitting Provider Internal Medicine; Emergency Provider Emergency Medicine; PCP Internal Medicine; Visit Provider Internal Medicine
DX: R10.9 Unspecified abdominal pain (principal); I16.0 Hypertensive urgency; I25.10 Atherosclerotic heart disease of native coronary artery without angina pectoris; K40.90 Unilateral inguinal hernia, without obstruction or gangrene, not specified as recurrent; Z87.891 Personal history of nicotine dependence; I16.1 Hypertensive emergency; R79.89 Other specified abnormal findings of blood chemistry; R94.31 Abnormal electrocardiogram [ECG] [EKG]; R53.1 Weakness; R53.83 Other fatigue; R05.3 Chronic cough; Z90.79 Acquired absence of other genital organ(s); R64 Cachexia; R93.5 Abnormal findings on diagnostic imaging of other abdominal regions, including retroperitoneum; I48.0 Paroxysmal atrial fibrillation; M62.50 Muscle wasting and atrophy, not elsewhere classified, unspecified site; R31.29 Other microscopic hematuria; Z79.01 Long term (current) use of anticoagulants; Z79.02 Long term (current) use of antithrombotics/antiplatelets; K59.00 Constipation, unspecified; E44.0 Moderate protein-calorie malnutrition; D64.9 Anemia, unspecified; Z68.20 Body mass index [BMI] 20.0-20.9, adult
CPT/HCPCS: 36415; 71045; 74176; 80053; 81001; 83605; 83690; 83735; 84484; 85025; 85610; 93005; 96365; 96375; 96376; 97162; 97165; 97535; 99285; G0378; J1335; J2270; J2405

== ENCOUNTER 2024-12-20 07:17 | Outpatient (RCR) | payer MEDICARE, OTHER, SELFPAY ==
--- NOTE | 2024-10-04 14:53 | CR1_ITS ---
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 Order Number: [id number] Beatriz MD: JOEL BARNES M.D. Interpretive Statements Patient may continue cardiac rehab as outlined in the treatment plan. Electronically Signed On 10-13-2024 10:22:33 EDT by JOEL BARNES M.D.
--- NOTE | 2024-10-09 11:03 | CR1_ITS ---
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 Interpretive Statements Patient may continue cardiac rehab as outlined in the treatment plan. Electronically Signed On 10-13-2024 10:26:07 EDT by JOEL BARNES M.D.
--- NOTE | 2024-10-26 08:41 | CR1_ITS ---
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 Order Number: [id number] Beatriz MD: Iggy Donovan Interpretive Statements Session Date: Electronically Signed On 11-03-2024 13:28:19 EDT by Iggy Donovan
--- NOTE | 2024-11-28 07:31 | CR1_ITS ---
The [facility] Test Date: 2024-11-28 Pat Name: CHICO BAKER Department: Room: - Gender: Male Direct Mail Coordinator: : 1940 Requested By: JOEL BARNES M.D. Order Number: [id number] Beatriz MD: JOEL BARNES M.D. Interpretive Statements Patient may continue cardiac rehab as outlined in the treatment plan. Electronically Signed On 11-28-2024 18:08:31 EDT by JOEL BARNES M.D.
--- NOTE | 2024-12-18 13:02 | PC.NURSE ---
called patient to follow up as he has not been seen since his colonoscopy in november. pt is in skilled rehab due to having a foot of his colon removed. will follow up with patient in 1 month if we have not heard from him.
--- NOTE | 2024-12-28 09:20 | CR1_ITS ---
[facility] Test Date: 2024-12-28 Pat Name: CHICO BAKER Department: Room: - Gender: Male Brownell Operator: : 1940 Requested By: JOEL BARNES M.D. Order Number: [id number] Beatriz MD: JOEL BARNES M.D. Interpretive Statements Patient may continue cardiac rehab as outlined in the treatment plan. Electronically Signed On 12-28-2024 19:24:10 EDT by JOEL BARNES M.D.
--- NOTE | 2025-01-03 14:24 | PC.NURSE ---
outreach letter sent to patient per attendance paper to check in and see how he is healing. Patient had stated he may end up [facility], or for an extended stay in skilled rehab following his surgery. We hope he is doing well and can return in the near future
--- NOTE | 2025-01-29 13:28 | CR1_ITS ---
[facility] Test Date: 2025-01-29 Pat Name: CHICO BAKER Department: Room: - Gender: Male Teletypesetter: : 1940 Requested By: JOEL BARNES M.D. Order Number: [id number] Beatriz MD: JOEL BARNES M.D. Interpretive Statements Patient may continue cardiac rehab as outlined in the treatment plan. Electronically Signed On 01-29-2025 19:52:33 EST by JOEL BARNES M.D.
--- NOTE | 2025-02-05 14:13 | CR1_ITS ---
The [facility] Test Date: 2025-02-05 Pat Name: CHICO BAKER Department: Room: - Gender: Male Laminating Machine Feeder: : 1940 Requested By: JOEL BARNES M.D. Order Number: [id number] Beatriz MD: JOEL BARNES M.D. Interpretive Statements Patient has completed rehab program and have noted outcomes. Electronically Signed On 02-05-2025 22:34:37 EST by JOEL BARNES M.D.
== END 2025-02-05 14:14 | disposition home or self-care (01) ==
LOC: CR 07:17
PROVIDERS: PCP Internal Medicine; Visit Provider Internal Medicine Interventional Cardiology
DX: I49.9 Cardiac arrhythmia, unspecified (principal); Z95.2 Presence of prosthetic heart valve
CPT/HCPCS: 93798